=== PATIENT | female | born 1955 | race Caucasian/White ===

== ENCOUNTER 2022-12-27 04:37 | Outpatient (REF) | payer OTHER, MEDICAID, SELFPAY ==
[2022-12-27 11:51] LABS: Anion Gap 11.9; BUN Creatinine Ratio 8.3; C Reactive Protein 6.8 mg/dL (<=1.0); Carbon Dioxide 27.3 mmol/L (21.0-32.0); Chloride 107 mmol/L (98-107); Creatine Kinase 129 U/L (26-192); Estimated GFR (African America >60 (>=60); Estimated GFR (Non-African Ame >60 (>=60); Glucose 137 mg/dL (74-106); Potassium 3.2 mmol/L (3.5-5.1); Sodium 143 mmol/L (136-145)
== END 2022-12-27 04:38 | disposition home or self-care (01) ==
LOC: LAB 04:37
PROVIDERS: PCP Family Medicine; Visit Provider Family Medicine
DX: M00.9 Pyogenic arthritis, unspecified (principal)
CPT/HCPCS: 36415; 80048; 82550; 86140

== ENCOUNTER 2022-12-30 04:18 | Outpatient (REF) | payer OTHER, MEDICAID, SELFPAY ==
[2022-12-30 09:11] LABS: Basophils Percent Auto 0.3 % (0.2-2.0); Eosinophils Absolute Auto 0.2 10^3/uL (0.0-0.7); Eosinophils Percent Auto 3.4 % (0.9-7.0); Hematocrit 25.2 % (36.0-48.0); Hemoglobin 7.4 g/dL (12.0-16.0); Immature Granulocytes Abs Auto 0.05 10^3/uL (0.00-0.03); Immature Granulocytes Pct Auto 0.8 % (0.0-0.5); Lymphocytes Absolute Auto 1.2 10^3/uL (1.2-3.8); Mean Corpuscular HGB Conc 29.4 g/dL (29.9-35.2); Mean Corpuscular Hemoglobin 27.5 pg (26.7-34.0); Mean Corpuscular Volume 93.7 fL (81.0-99.0); Monocytes Absolute Auto 0.6 10^3/uL (0.3-0.8); Monocytes Percent Auto 8.6 % (1.7-12.0); Neutrophils Absolute Auto 4.4 10^3/uL (1.4-6.5); Neutrophils Percent Auto 67.9 % (43.0-75.0); Platelet Count 336 10^3/uL (150-450); Red Blood Count 2.69 10^6/uL (4.20-5.40); Red Cell Distribution Width 16.4 % (11.0-15.0); White Blood Count 6.4 10^3/uL (4.0-11.0)
[2022-12-30 10:03] LABS: Anion Gap 11.9; Carbon Dioxide 24.8 mmol/L (21.0-32.0); Chloride 110 mmol/L (98-107); Potassium 3.7 mmol/L (3.5-5.1); Sodium 143 mmol/L (136-145)
== END 2022-12-30 04:19 | disposition home or self-care (01) ==
LOC: LAB 04:18
PROVIDERS: PCP Family Medicine; Visit Provider Family Medicine
DX: E87.6 Hypokalemia (principal)
CPT/HCPCS: 36415; 80051; 85025

== ENCOUNTER 2023-01-01 01:09 | Outpatient (REF) | payer OTHER, MEDICAID, SELFPAY ==
[2023-01-01 08:29] LABS: Hematocrit 26.6 % (36.0-48.0); Hemoglobin 7.7 g/dL (12.0-16.0); Mean Corpuscular HGB Conc 28.9 g/dL (29.9-35.2); Mean Corpuscular Hemoglobin 27.3 pg (26.7-34.0); Mean Corpuscular Volume 94.3 fL (81.0-99.0); Mean Platelet Volume 9.9 fL (9.5-13.5); Platelet Count 287 10^3/uL (150-450); Red Blood Count 2.82 10^6/uL (4.20-5.40); Red Cell Distribution Width 16.7 % (11.0-15.0); White Blood Count 6.2 10^3/uL (4.0-11.0)
[2023-01-01 11:06] LABS: Basophils Abs Manual 0.06 10^3/uL (0.00-0.10); Eosinophils Absolute Manual 0.18 10^3/uL (0.00-0.70); Lymphocytes Absolute Manual 2.04 10^3/uL (1.20-3.80); Monocytes Absolute Manual 0.55 10^3/uL (0.30-0.80); Segmented Neut Absolute Manual 3.34 10^3/uL (1.4-6.5)
[2023-01-01 11:07] LABS: Anisocytosis 1+; Hypochromasia 1+
== END 2023-01-01 01:10 | disposition home or self-care (01) ==
LOC: LAB 01:09
PROVIDERS: PCP Family Medicine; Visit Provider Family Medicine
DX: D64.9 Anemia, unspecified (principal)
CPT/HCPCS: 36415; 85027

== ENCOUNTER 2023-01-03 00:37 | Outpatient (REF) | payer OTHER, MEDICAID, SELFPAY ==
[2023-01-03 10:20] LABS: Basophils Percent Auto 0.5 % (0.2-2.0); Eosinophils Absolute Auto 0.3 10^3/uL (0.0-0.7); Eosinophils Percent Auto 5.2 % (0.9-7.0); Hemoglobin 8.7 g/dL (12.0-16.0); Immature Granulocytes Abs Auto 0.05 10^3/uL (0.00-0.03); Immature Granulocytes Pct Auto 0.8 % (0.0-0.5); Lymphocytes Percent Auto 33.9 % (20.5-60.0); Mean Corpuscular HGB Conc 28.1 g/dL (29.9-35.2); Mean Corpuscular Hemoglobin 27.5 pg (26.7-34.0); Mean Corpuscular Volume 98.1 fL (81.0-99.0); Mean Platelet Volume 10.1 fL (9.5-13.5); Monocytes Absolute Auto 0.7 10^3/uL (0.3-0.8); Monocytes Percent Auto 12.3 % (1.7-12.0); Neutrophils Absolute Auto 2.8 10^3/uL (1.4-6.5); Neutrophils Percent Auto 47.3 % (43.0-75.0); Platelet Count 293 10^3/uL (150-450); Red Cell Distribution Width 17.2 % (11.0-15.0)
[2023-01-03 10:29] LABS: Anion Gap 10.2; C Reactive Protein 3.6 mg/dL (<=1.0); Calcium 8.5 mg/dL (8.5-10.1); Carbon Dioxide 24.3 mmol/L (21.0-32.0); Chloride 109 mmol/L (98-107); Creatine Kinase 53 U/L (26-192); Estimated GFR (African America >60 (>=60); Estimated GFR (Non-African Ame >60 (>=60); Glucose 87 mg/dL (74-106); Potassium 4.5 mmol/L (3.5-5.1); Sodium 139 mmol/L (136-145)
[2023-01-03 11:05] LABS: Red Blood Count 3.16 10^6/uL (4.20-5.40)
== END 2023-01-03 00:38 | disposition home or self-care (01) ==
LOC: LAB 00:37
PROVIDERS: PCP Family Medicine; Visit Provider Family Medicine
DX: E11.22 Type 2 diabetes mellitus with diabetic chronic kidney disease (principal); M00.9 Pyogenic arthritis, unspecified; I13.10 Hypertensive heart and chronic kidney disease without heart failure, with stage 1 through stage 4 chronic kidney disease, or unspecified chronic kidney disease; E66.9 Obesity, unspecified; D64.9 Anemia, unspecified
CPT/HCPCS: 36415; 80048; 82550; 86140

== ENCOUNTER 2023-01-10 06:07 | Outpatient (REF) | payer OTHER, MEDICAID, SELFPAY ==
[2023-01-10 09:20] LABS: Alanine Aminotransferase 8 U/L (14-59); Albumin Globulin Ratio 0.5; Albumin Level 2.2 g/dL (3.4-5.0); Alkaline Phosphatase 91 U/L (46-116); Anion Gap 14.5; Aspartate Amino Transferase 7 U/L (15-37); BUN Creatinine Ratio 14.5; Bilirubin Total 0.3 mg/dL (0.2-1.0); C Reactive Protein 2.7 mg/dL (<=1.0); Calcium 8.9 mg/dL (8.5-10.1); Carbon Dioxide 25.1 mmol/L (21.0-32.0); Chloride 107 mmol/L (98-107); Creatine Kinase 28 U/L (26-192); Estimated GFR (African America >60 (>=60); Estimated GFR (Non-African Ame >60 (>=60); Globulin 4.6 g/dL; Glucose 128 mg/dL (74-106); Potassium 3.6 mmol/L (3.5-5.1); Sodium 143 mmol/L (136-145); Total Protein 6.8 g/dL (6.4-8.2)
== END 2023-01-10 06:08 | disposition home or self-care (01) ==
LOC: LAB 06:07
PROVIDERS: PCP Family Medicine; Visit Provider Family Medicine
DX: E11.22 Type 2 diabetes mellitus with diabetic chronic kidney disease (principal); I13.10 Hypertensive heart and chronic kidney disease without heart failure, with stage 1 through stage 4 chronic kidney disease, or unspecified chronic kidney disease; E66.9 Obesity, unspecified; M00.9 Pyogenic arthritis, unspecified
CPT/HCPCS: 36415; 80053; 82550; 86140

== ENCOUNTER 2023-01-17 01:39 | Outpatient (REF) | payer OTHER, MEDICAID, SELFPAY ==
[2023-01-17 08:42] LABS: Anion Gap 11.9; C Reactive Protein 5.2 mg/dL (<=1.0); Calcium 8.7 mg/dL (8.5-10.1); Carbon Dioxide 23.8 mmol/L (21.0-32.0); Chloride 107 mmol/L (98-107); Creatine Kinase 19 U/L (26-192); Estimated GFR (African America >60 (>=60); Estimated GFR (Non-African Ame >60 (>=60); Glucose 111 mg/dL (74-106); Potassium 3.7 mmol/L (3.5-5.1); Sodium 139 mmol/L (136-145)
== END 2023-01-17 01:40 | disposition home or self-care (01) ==
LOC: LAB 01:39
PROVIDERS: PCP Family Medicine; Visit Provider Family Medicine
DX: M00.9 Pyogenic arthritis, unspecified (principal)
CPT/HCPCS: 36415; 80048; 82550; 86140

== ENCOUNTER 2023-01-24 06:28 | Outpatient (REF) | payer OTHER, MEDICAID, SELFPAY ==
[2023-01-24 10:09] LABS: Anion Gap 15.6; BUN Creatinine Ratio 16.2; C Reactive Protein 4.9 mg/dL (<=1.0); Carbon Dioxide 21.7 mmol/L (21.0-32.0); Chloride 107 mmol/L (98-107); Creatine Kinase 31 U/L (26-192); Estimated GFR (African America >60 (>=60); Estimated GFR (Non-African Ame >60 (>=60); Glucose 164 mg/dL (74-106); Potassium 4.3 mmol/L (3.5-5.1); Sodium 140 mmol/L (136-145)
== END 2023-01-24 06:29 | disposition home or self-care (01) ==
LOC: LAB 06:28
PROVIDERS: PCP Family Medicine; Visit Provider Family Medicine
DX: M00.9 Pyogenic arthritis, unspecified (principal); E11.22 Type 2 diabetes mellitus with diabetic chronic kidney disease; I13.10 Hypertensive heart and chronic kidney disease without heart failure, with stage 1 through stage 4 chronic kidney disease, or unspecified chronic kidney disease; E66.9 Obesity, unspecified
CPT/HCPCS: 36415; 80048; 82550; 86140

== ENCOUNTER 2023-02-07 03:14 | Outpatient (REF) | payer OTHER, MEDICAID, SELFPAY ==
[2023-02-07 08:37] LABS: Anion Gap 11.5; BUN Creatinine Ratio 20.8; C Reactive Protein 1.9 mg/dL (<=1.0); Carbon Dioxide 26.4 mmol/L (21.0-32.0); Chloride 110 mmol/L (98-107); Creatine Kinase 18 U/L (26-192); Estimated GFR (African America >60 (>=60); Estimated GFR (Non-African Ame >60 (>=60); Glucose 90 mg/dL (74-106); Potassium 3.9 mmol/L (3.5-5.1); Sodium 144 mmol/L (136-145)
== END 2023-02-07 03:15 | disposition home or self-care (01) ==
LOC: LAB 03:14
PROVIDERS: PCP Family Medicine; Visit Provider Family Medicine
DX: M00.9 Pyogenic arthritis, unspecified (principal)
CPT/HCPCS: 36415; 80048; 82550; 86140

== ENCOUNTER 2023-02-11 14:30 | Outpatient (REF) | payer OTHER, MEDICAID, SELFPAY ==
[2023-02-12 08:56] LABS: Bilirubin Urine NEGATIVE (NEGATIVE); Blood Urine MODERATE (NEGATIVE); Clarity Urine CLOUDY (CLEAR); Color Urine LT. YELLOW (YELLOW); Glucose Urine UA NEGATIVE (NEGATIVE); Ketones Urine NEGATIVE (NEGATIVE); Leukocyte Esterase Urine LARGE (NEGATIVE); Nitrite Urine NEGATIVE (NEGATIVE); Protein Urine 30 mg/dL (NEG/TRACE); Specific Gravity Urine 1.025 (1.005-1.025); Urine Microscopic Indicated YES; Urobilinogen Urine 0.2 EU/dL (0.2-1.0)
[2023-02-12 09:02] LABS: Bacteria Urine SMALL #/HPF (NONE SEEN); Crystals Seen? None Seen #/HPF (None Seen); Mucus Urine NONE SEEN (NONE SEEN); RBC Urine 0-2 #/HPF (0-2); Squamous Epithelial Cell Urine NONE SEEN #/LPF (NONE/RARE); WBC Urine >100 #/HPF (NONE SEEN)
[2023-02-12 09:03] LABS: Cast Seen? NONE SEEN #/LPF (NONE SEEN)
== END 2023-02-11 14:31 | disposition home or self-care (01) ==
LOC: LAB 14:30
PROVIDERS: PCP Family Medicine; Visit Provider Family Medicine
DX: R30.0 Dysuria (principal)
CPT/HCPCS: 81001

== ENCOUNTER 2023-02-14 09:14 | Outpatient (REF) | payer OTHER, MEDICAID, SELFPAY ==
[2023-02-14 10:24] LABS: Anion Gap 13.2; BUN Creatinine Ratio 14.3; C Reactive Protein 3.6 mg/dL (<=1.0); Calcium 8.6 mg/dL (8.5-10.1); Carbon Dioxide 25.5 mmol/L (21.0-32.0); Chloride 109 mmol/L (98-107); Creatine Kinase 19 U/L (26-192); Estimated GFR (African America >60 (>=60); Estimated GFR (Non-African Ame >60 (>=60); Glucose 126 mg/dL (74-106); Potassium 3.7 mmol/L (3.5-5.1); Sodium 144 mmol/L (136-145)
== END 2023-02-14 09:15 | disposition home or self-care (01) ==
LOC: LAB 09:14
PROVIDERS: PCP Family Medicine; Visit Provider Family Medicine
DX: Z51.81 Encounter for therapeutic drug level monitoring (principal)
CPT/HCPCS: 36415; 80048; 82550; 86140

== ENCOUNTER 2023-02-24 08:30 | Outpatient (OUT) | payer OTHER, MEDICAID, SELFPAY ==
[2023-02-24 10:22] LABS: Anion Gap 12.6; BUN Creatinine Ratio 18.2; Calcium 9.1 mg/dL (8.5-10.1); Chloride 109 mmol/L (98-107); Creatine Kinase 19 U/L (26-192); Estimated GFR (African America >60 (>=60); Estimated GFR (Non-African Ame >60 (>=60); Glucose 108 mg/dL (74-106); Potassium 3.6 mmol/L (3.5-5.1); Sodium 144 mmol/L (136-145)
[2023-02-24 10:24] LABS: C Reactive Protein 2.28 mg/dL (<=0.30)
== END 2023-02-24 08:31 | disposition home or self-care (01) ==
PROVIDERS: PCP Family Medicine; Visit Provider Family Medicine
DX: Z51.81 Encounter for therapeutic drug level monitoring (principal)
CPT/HCPCS: 36415; 80048; 82550; 86140

== ENCOUNTER 2023-03-03 00:59 | Outpatient (REF) | payer OTHER, MEDICAID, SELFPAY ==
[2023-03-03 09:21] LABS: Anion Gap 11.5; BUN Creatinine Ratio 22.4; Carbon Dioxide 27.2 mmol/L (21.0-32.0); Chloride 109 mmol/L (98-107); Creatine Kinase 19 U/L (26-192); Estimated GFR (African America >60 (>=60); Estimated GFR (Non-African Ame >60 (>=60); Glucose 88 mg/dL (74-106); Potassium 3.7 mmol/L (3.5-5.1); Sodium 144 mmol/L (136-145)
[2023-03-03 09:22] LABS: C Reactive Protein 1.02 mg/dL (<=0.30)
== END 2023-03-03 01:00 | disposition home or self-care (01) ==
LOC: LAB 00:59
PROVIDERS: PCP Family Medicine; Visit Provider Family Medicine
DX: Z51.81 Encounter for therapeutic drug level monitoring (principal)
CPT/HCPCS: 36415; 80048; 82550; 86140

== ENCOUNTER 2023-03-10 11:07 | Outpatient (REF) | payer OTHER, MEDICAID, SELFPAY ==
[2023-03-10 12:02] LABS: Anion Gap 12.6; BUN Creatinine Ratio 27.6; Calcium 8.7 mg/dL (8.5-10.1); Carbon Dioxide 25.5 mmol/L (21.0-32.0); Chloride 109 mmol/L (98-107); Creatine Kinase 25 U/L (26-192); Estimated GFR (African America >60 (>=60); Estimated GFR (Non-African Ame >60 (>=60); Glucose 108 mg/dL (74-106); Potassium 4.1 mmol/L (3.5-5.1); Sodium 143 mmol/L (136-145)
[2023-03-10 15:47] LABS: C Reactive Protein 1.93 mg/dL (<=0.50)
== END 2023-03-10 11:08 | disposition home or self-care (01) ==
LOC: LAB 11:07
PROVIDERS: PCP Family Medicine; Visit Provider Family Medicine
DX: Z51.81 Encounter for therapeutic drug level monitoring (principal)
CPT/HCPCS: 36415; 80048; 82550; 86140

== ENCOUNTER 2023-03-12 02:10 | Outpatient (REF) | payer OTHER, MEDICAID, SELFPAY ==
[2023-03-12 11:59] LABS: Alanine Aminotransferase 24 U/L (14-59); Albumin Globulin Ratio 0.7; Albumin Level 2.7 g/dL (3.4-5.0); Alkaline Phosphatase 70 U/L (46-116); Anion Gap 10.4; Aspartate Amino Transferase 20 U/L (15-37); BUN Creatinine Ratio 29.1; Bilirubin Total 0.2 mg/dL (0.2-1.0); Carbon Dioxide 26.6 mmol/L (21.0-32.0); Chloride 107 mmol/L (98-107); Creatine Kinase 21 U/L (26-192); Estimated GFR (African America >60 (>=60); Estimated GFR (Non-African Ame >60 (>=60); Glucose 81 mg/dL (74-106); Sodium 140 mmol/L (136-145); Total Protein 6.7 g/dL (6.4-8.2)
[2023-03-12 12:48] LABS: C Reactive Protein 1.19 mg/dL (<=0.50)
== END 2023-03-12 02:11 | disposition home or self-care (01) ==
LOC: LAB 02:10
PROVIDERS: PCP Family Medicine; Visit Provider Family Medicine
DX: M00.9 Pyogenic arthritis, unspecified (principal)
CPT/HCPCS: 36415; 80053; 82550; 86140

== ENCOUNTER 2023-03-17 01:06 | Outpatient (REF) | payer OTHER, MEDICAID, SELFPAY ==
[2023-03-17 08:20] LABS: Anion Gap 11.5; BUN Creatinine Ratio 29.2; Calcium 8.6 mg/dL (8.5-10.1); Carbon Dioxide 27.7 mmol/L (21.0-32.0); Chloride 107 mmol/L (98-107); Creatine Kinase 23 U/L (26-192); Estimated GFR (African America >60 (>=60); Estimated GFR (Non-African Ame >60 (>=60); Glucose 131 mg/dL (74-106); Potassium 4.2 mmol/L (3.5-5.1); Sodium 142 mmol/L (136-145)
[2023-03-17 08:23] LABS: C Reactive Protein 2.12 mg/dL (<=0.50)
== END 2023-03-17 01:07 | disposition home or self-care (01) ==
LOC: LAB 01:06
PROVIDERS: PCP Family Medicine; Visit Provider Family Medicine
DX: Z51.81 Encounter for therapeutic drug level monitoring (principal); Z79.899 Other long term (current) drug therapy
CPT/HCPCS: 36415; 80048; 82550; 86140

== ENCOUNTER 2023-03-25 03:52 | Outpatient (REF) | payer OTHER, MEDICAID, SELFPAY ==
[2023-03-25 08:19] LABS: Anion Gap 13.1; BUN Creatinine Ratio 21.9; C Reactive Protein 2.69 mg/dL (<=0.50); Carbon Dioxide 24.8 mmol/L (21.0-32.0); Chloride 104 mmol/L (98-107); Creatine Kinase 36 U/L (26-192); Estimated GFR (African America >60 (>=60); Estimated GFR (Non-African Ame 58 (>=60); Glucose 76 mg/dL (74-106); Potassium 3.9 mmol/L (3.5-5.1); Sodium 138 mmol/L (136-145)
== END 2023-03-25 03:53 | disposition home or self-care (01) ==
LOC: LAB 03:52
PROVIDERS: PCP Family Medicine; Visit Provider Family Medicine
DX: Z51.81 Encounter for therapeutic drug level monitoring (principal)
CPT/HCPCS: 36415; 80048; 82550; 86140

== ENCOUNTER 2023-04-14 00:36 | Outpatient (REF) | payer MEDICARE, MEDICAID, SELFPAY ==
--- OUTSIDE RECORDS SUMMARY | 2023-04-14 00:41 | XMS_ITS | CCD ---
Author Name Unknown Address [address] [place] [address] Organization [facility] Care Team Providers Care Associate Dean Of Women Name Role Phone Link, Marcelo Tita Primary Care Physician Efrem Matos Unavailable Unavailable Matthieu Ware Unavailable Unavailable Hayde Morrison Unavailable Unavailable Kady Stephenson Unavailable Unavailable Zidaimelda, Angie Unavailable Unavailable Richuiti, Ellyn I Unavailable Unavailable Holleran, Ellyn Unavailable Unavailable Sienna Fernández Unavailable Unavailable Dr. Chuck Vernon Attending Yanni vailable Unavailable Primary Care Provider Unavailabl e PROVIDER, UNKNOWN Admitting Unavailable PROVIDER, UNKNOWN Attending Unavailable Ashish Chester Unavailable Brady Marinelli Attending Unavailable Raul Arnold Attending Unavailable Joaquim Noe Attending Unavailable Joaquim Noe Referring Unavailable Hasmukh Joaquim Clayton Admitting Unavailable DO Ty Manrique Attending Unavailable Raul Arnold Attending Unavailable Hari Martinez Attending Unavailable Hasmukh, Joaquim A Consulting Unavailable José MENESES Attending Unavailable Brown, Joaquim A Consulting Unavailable Brown, Joaquim A Consulting Unavailable Brown, Joaquim A Consulting Unavailable Brown, Joaquim A Consulting Unavailable Brown, Joaquim A Consulting Unavailable Brown, Joaquim A Consulting Unavailable Brown, Joaquim A Consulting Unavailable Brown, Joaquim A Consulting Unavailable Brown, Joaquim A Consulting Unavailable Brown, Joaquim A Consulting Unavailable London DIAZ Admitting Unavailable London DIAZ Attending Unavailable London DIAZ Referring Unavailable Brown, Joaquim A Consulting Unavailable Soni PADGETT Attending Unavailable Reymundo JORDAN Admitting Unavailable Brown, Joaquim A Consulting Unavailable Brown, Joaquim A Consulting Unavailable Brown, Joaquim A Consulting Unavailable Brown, Joaquim A Consulting Unavailable Brown, Joaquim A Consulting Unavailable Brown, Joaquim A Consulting Unavailable Brown, Joaquim A Consulting Unavailable Brown, Joaquim A Consulting Unavailable Joaquim Noe Consulting Unavailable Joaquim Noe Consulting Unavailable Joaquim Noe Attending Unavailable Joaquim Noe Referring Unavailable Joaquim Noe Admitting Unavailable Cordell Grossman Consulting Unavailable DO Cordell Grossman Consulting UnavailCordell Lyons Consulting Unavailable Blank, Ashish S Consulting Unavailable Blank, Ashish S Consulting Unavailable Blank, Ashish S Consulting Unavailable Blank, Ashish S Consulting Unavailable Blank, Ashish S Consulting Unavailable Blank, Ashish S Consulting Unavailable Blank, Ashish S Consulting Unavailable Blank, Ashish S Consulting Unavailable Blank, Ashish S Consulting Unavailable Blank, Ashish S Consulting Unavailable Raul Arnold Attending Unavailable Earnest Guevara Attending Unavailable Raul Arnold Attending Unavailable London DIAZ Attending Unavailable José MENESES Attending Unavailable DO Emely Mccall Attending Unavaila Vannessa Salcido Unavailable Unavailable Allergies Allergy Classification Reported Allergen(s) Allergy Type Date of Onset Reaction(s) Facility (20 sources) Adhesive bandage; Translations: [Adhesive Bandage] Drug allergy Eruption of skin (disorder) [facility] (20 sources) Amoxicillin; Translations: [amoxicillin] Drug Allergy Anaphylaxis (disorder) [facility] Comment on above: Tolerated ceftriaxon e several times in past (20 sources) bacitracin / neomycin / polymyxin b; Translations: [bacitracin/neomy andrea/polymyxin B topical] Drug Allergy Eruption of skin (disorder) [facility] (20 sources) celecoxib; Translations: [celecoxib] Drug Allergy Eruption of skin (disorder) [facility] (20 sources) Penicillin; Translations: [penicillin] Drug Allergy Anaphylaxis (disorder) [facility] Comment on above: Tolerated ceftriaxon e several times in past (20 sources) Sulfamethoxazole; Translations: [sulfamethoxazole ] Drug Allergy unknown [facility] (20 sources) Triclosan; Translations: [triclosan topical] Drug Allergy Eruption of skin (disorder) [facility] (20 sources) goldbond cream; Translations: [goldbond cream] Drug allergy Eruption of skin (disorder) [facility] (3 sources) Aloe Extract Drug Allergy Unknown [facility] Other (3 sources) Bacitracin / Polymyxin B Drug Allergy Unknown [facility] Other (3 sources) Benzalkonium Drug Allergy Unknown [facility] Other (3 sources) corn starch Drug Allergy Unknown [facility] Other (3 sources) dimethicone Drug Allergy Unknown [facility] Other (3 sources) Kaolin Drug Allergy Unknown [facility] Other (4 sources) meloxicam; Translations: [meloxicam] Drug Allergy Unknown [facility] (3 sources) pramoxine Drug Allergy Unknown [facility] Other (3 sources) Zinc Oxide Drug Allergy Unknown [facility] Other (3 sources) Substance with sulfonamide structure and antibacterial mechanism of action (substance) Drug allergy Unknown [facility] Other (1 source) Acetaminophen / HYDROcodone; Translations: [Vicodin] Drug Allergy [facility] Rep[facility] (1 source) Latex; Translations: [Latex] Propensity to adverse reactions (disorder) [facility] (1 source) Penicillin; Translations: [penicillin] Drug Allergy [facility] Rep[facility] Medications Current Medications Medication Drug Class(es) Dates Sig (Normalized) Sig (Original) acetaminophen 325 mg oral tablet (3 sources) take 1 tablet by mouth every eight hours Acetaminophen 325 MG 1 tablet as needed Orally TID Active acetaminophen 325 mg / HYDROcodone bitartrate 5 mg oral tablet (16 sources) Opioid Agonist Start: 01-28-2022 take 1 tablet by mouth twice daily for pain [place] 325 mg-5 mg oral tablet 1 tab(s), Oral, BID for pain, Refill(s) 0 Start Date: 01/28/22 Status: Ordered acetaminophen 325 mg / oxyCODONE hydrochloride 5 mg oral tablet (10 sources) Opioid Agonist Start: 12-24-2022 Percocet 5 mg-325 mg oral tablet See Instructions, 40 tab(s), Refill(s) 0, 1-2 tab(s) Oral q4hr Start Date: 12/24/22 Status: Ordered Start: 12-05-2022 take 1.5 tablets by mouth every six hours acetaminophen-oxycodone 325 mg-5 mg Tab 1.5 tab(s), Oral, q6hr M19.9 hip fracture, 80 tab(s), Refill(s) 0, [facility] [place], 162, cm, 11/24/22 0:45:00 EDT, Height/Length Dosing, 64.6, kg, 11/24/22 0:45:00 EDT, Weight Dosing Start Date: 12/05/22 Status: Ordered Start: 11-27-2022 Percocet 5 mg- 325 mg oral tablet See Instructions, 28 tab(s), Refill(s) 0, 1- 2 tab(s) Oral q6hr as nneded for Pain x 7 days Start Date: 11/27/22 Status: Ordered Start: 03-13-2022 End: 03-16-2022 Percocet 5 mg-325 mg oral ta blet 1 tab(s), Oral, q6hr for 3 day(s), 12 tab(s), Refill(s) 0, [id number], 165, cm, 03/13/22 16:40:00 EST, Height/Length Dosing, 73.6, kg, 03/13/22 16:40:00 EST, Weight Dosing Start Date: 03/13/22 Stop Date: 03/16/22 Status: Ordered take 1 tablet by mindy th every four hours oxyCODONE-Acetaminophen 10-325 MG 1 tablet as needed Orally every 4 hrs Active ascorbic acid 500 mg oral tablet (9 sources) Vitamin C Start: 11-27-2022 ascorbic acid 500 mg Tab 500 mg = 1 tab(s), Oral, BIDWM, Refills(s) 0 Start Date: 11/27/22 Status: Ordered take 1 tablet by mouth every twe lve hours Ascorbic Acid 500 MG 1 tablet Orally BID Active aspirin 81 mg delayed release oral tablet (6 sources) Platelet Aggregation Inhibitor, Nonsteroidal Anti-inflammatory Drug Start: 11-28-2022 End: 01-23-2023 take 2 tablets by mouth once daily aspirin 81 mg Oral EC Tab 162 mg = 2 tab(s), Oral, Daily, X 30 day(s), # 60 tab(s), Refills(s) 0 Start Date: 12/24/22 Stop Date: 01/23/23 Status: Ordered atorvastatin 40 mg oral tablet (5 sources) HMG-CoA Reductase Inhibitor Start: 02-13-2023 take 1 tablet by mouth once daily atorvastatin 40 mg Tab 40 mg = 1 tab(s), Oral, Daily, Refills(s) 0, High cholesterol Start Date: 02/13/23 Status: Ordered bisacodyl 5 mg delayed release oral tablet (6 sources) Stimulant Laxative Start: 11-27-2022 take 2 tablets by mouth once as needed for constipation bisacodyl 5 mg Oral EC Tab 10 mg = 2 tab(s), Oral, Once, PRN Constipation, Refills(s) 0 Start Date: 11/27/22 Status: Ordered 12 hr buPROPion hydrochloride 150 mg extended release oral tablet (20 sources) Aminoketone Start: 01-29-2022 take 2 tablets by mouth once daily buPROPion 150 mg ER Tab 300 mg = 2 tab(s), Oral, Daily, Anxiety Start Date: 01/29/22 Status: Ordered Start: 05-23-2021 take 1 tablet by mindy th every twenty-four hours buPROPion 150 mg/24 hours ER Tab 300 mg = 2 tab(s), Oral, q24hr, # 30 tab(s), Refills(s) 0 Start Date: 05/23/21 Status: Ordered Start: 05-23-2021 take 1 tablet by mindy th every twenty-four hours buPROPion 150 mg/24 hours ER Tab 150 mg = 1 tab(s), Oral, q24hr, # 30 tab(s), Refills(s) 0 Start Date: 05/23/21 Status: Ordered take 1 tablet by mindy th every twelve hours buPROPion HCl ER (SR) 150 MG 1 tablet Orally BID Active BuPROPion (Eqv-Wellbutrin SR) 150 mg/12 hours oral tablet, extended release (5 sources) Start: 12-03-2022 BuPROPion (Eqv-Wellbutrin SR) 150 mg/12 hours oral tablet, extended release 150 mg = 1 tab(s), Oral, BID, Refills(s) 0 Start Date: 12/03/22 Status: Ordered busPIRone hydrochloride 10 mg oral tablet (7 sources) Start: 05-23-2021 take 1 tablet by mouth three times daily busPIRone 10 mg Tab 10 mg = 1 tab(s), Oral, TID, # 90 tab(s), Refills(s) 0 Start Date: 05/23/21 Status: Ordered carvedilol 12.5 mg oral tablet (20 sources) alpha-Adrenergic Pema, beta-Adrenergic Pema Start: 08-14-2020 take 1 tablet by mouth twice daily carvedilol 12.5 mg Tab 12.5 mg = 1 tab(s), Oral, BID, High blood pressure Start Date: 08/14/20 Status: Ordered celecoxib 100 mg oral capsule (4 sources) Nonsteroidal Anti-inflammatory Drug Start: 12-24-2022 take 1 capsule by mouth twice daily as needed for pain CeleBREX 100 mg Cap 100 mg = 1 cap(s), Oral, BID, PRN for pain, # 60 cap(s), Refills(s) 0 Start Date: 12/24/22 Status: Ordered cephalexin 500 mg oral capsule (5 sources) Cephalosporin Antibacterial Start: 05-25-2021 take 1 capsule by mouth every eight hours Keflex 500 mg Cap 500 mg = 1 cap(s), Oral, q8hr, # 30 cap(s), Refills(s) 0, Pharmacy: [id number], 163, cm, 05/23/21 14:18:00 EST, Height/Length Dosing, 82, kg, 05/23/21 14:18:00 EST, Weight Dosing Start Date: 05/25/21 Status: Ordered ciprofloxacin 500 mg oral tablet (3 sources) Quinolone Antimicrobial Start: 02-13-2023 take 1 tablet by mouth every twelve hours Cipro 500 mg Tab 500 mg = 1 tab(s), Oral, q12hr, Refills(s) 0, Infection or prophylaxis for antibiotics Start Date: 02/13/23 Status: Ordered cyclobenzaprine hydrochloride 10 mg oral tablet (5 sources) Muscle Relaxant Start: 05-23-2021 take 1 tablet by mouth three times daily as needed for muscle spasms cyclobenzaprine 10 mg Tab 10 mg = 1 tab(s), Oral, TID, PRN for spasm, # 30 tab(s), Refills(s) 0 Start Date: 05/23/21 Status: Ordered DAPTOmycin 500 mg injection (6 sources) Lipopeptide Antibacterial Start: 12-24-2022 take 400 mg intravenously every twenty-four hours DAPTOmycin 500 mg IV Inj. 400 mg, IV, q24hr, # 38 EA, Refills(s) 0 Start Date: 12/24/22 Status: Ordered DAPTOmycin 500 M G as directed Intravenous Active diazePAM 5 mg oral tablet (6 sources) Benzodiazepine Start: 12-24-2022 take 1 tablet by mouth every eight hours as needed for muscle spasms Valium 5 mg Tab 5 mg = 1 tab(s), Oral, q8hr, PRN Spasm, # 20 tab(s), Refills(s) 0 Start Date: 12/24/22 Status: Ordered take 1 tablet by mindy th every twenty-four hours diazePAM 5 MG 1 tablet as needed Orally Once a day Active dicyclomine hydrochloride 10 mg oral capsule (1 source) Anticholinergic Start: 03-13-2022 End: 03-20-2022 take 1 capsule by mouth four times daily Bentyl 10 mg Cap 10 mg = 1 cap(s), Oral, QID, X 7 day(s), # 28 cap(s), Refills(s) 0, Pharmacy: [id number], 165, cm, 03/13/22 16:40:00 EST, Height/Length Dosing, 73.6, kg, 03/13/22 16:40:00 EST, Weight Dosing Start Date: 03/13/22 Stop Date: 03/20/22 Status: Ordered docusate sodium 100 mg oral capsule (1 source) Start: 11-27-2022 take 1 capsule by mouth twice daily Colace 100 mg Cap 100 mg = 1 cap(s), Oral, BID, Refills(s) 0 Start Date: 11/27/22 Status: Ordered 0.5 ML dulaglutide 9 MG/ML Auto-Injector [Trulicity] (20 sources) GLP-1 Receptor Agonist Start: 05-23-2021 inject 4.5 mg by subcutaneous injection every week Trulicity Pen 4.5 mg/0.5 mL subcutaneous solution 4.5 mg, SubCutaneous, qWeek, Refills(s) 0, Blood glucose Start Date: 05/23/21 Status: Ordered Start: 05-23-2021 inject 4.5 mg by sub cutaneous injection every week Trulicity Pen 4.5 mg/0.5 mL subcutaneous solution 4.5 mg, SubCutaneous, qWeek, Refills(s) 0 Start Date: 05/23/21 Status: Ordered esomeprazole 20 mg delayed release oral capsule (20 sources) Proton Pump Inhibitor Start: 12-19-2022 take 2 capsules by mouth once daily esomeprazole 20 mg Cap-DR 40 mg = 2 cap(s), Oral, Daily, # 30 cap(s), Refills(s) 0 Start Date: 12/19/22 Status: Ordered Start: 05-23-2021 take 1 capsule by [facility] once daily esomeprazole 20 mg Cap-DR 20 mg = 1 cap(s), Oral, Daily, # 30 cap(s), Refills(s) 0, Control of stomach acid Start Date: 05/23/21 Status: Ordered take 1 capsule by [facility] every twenty-four hours ferrous sulfate 325 mg oral tablet (9 sources) Start: 11-27-2022 take 1 tablet by mouth once daily ferrous sulfate 325 mg Tab 325 mg = 1 tab(s), Oral, Daily, Refills(s) 0 Start Date: 11/27/22 Status: Ordered take 1 tablet by mouth three vadim es weekly Ferrous Sulfate 325 (65 Fe) MG 1 tablet Orally Three times a Week Active gabapentin 800 mg oral tablet (20 sources) Anti-epileptic Agent Start: 01-28-2022 take 800 mg by mouth three times daily gabapentin 800 mg, Oral, TID, Refills(s) 0, Neuropathy Start Date: 01/28/22 Status: Ordered Start: 02-26-2018 take 1 capsule by [facility] three times daily gabapentin 300 mg Cap 300 mg = 1 cap(s), Oral, TID, Refills(s) 0, Neuropathy Start Date: 02/26/18 Status: Ordered heparin (2 sources) Unfractionated Heparin, Anti-coagulant Start: 02-13-2023 heparin flush 1 unit(s), IV Push, q24hr, 1 unit/ml, total 5 ml flush, Refills(s) 0 Start Date: 02/13/23 Status: Ordered hydrOXYzine hydrochloride 25 mg oral tablet (20 sources) Antihistamine Start: 05-23-2021 take 1 tablet by mouth three times daily as needed for anxiety hydrOXYzine hydrochloride 25 mg Tab 25 mg = 1 tab(s), Oral, TID, PRN for anxiety, # 40 tab(s), Refills(s) 0 Start Date: 05/23/21 Status: Ordered take 1 tablet by mouth every twe nty-four hours ibuprofen 800 mg oral tablet (2 sources) Nonsteroidal Anti-inflammatory Drug Start: 01-28-2022 take 800 mg by mouth every six hours as needed for pain ibuprofen 800 mg, Oral, q6hr, PRN Pain/Fever, Refills(s) 0 Start Date: 01/28/22 Status: Ordered insulin aspart, human 100 unt/ml injectable solution (11 sources) Insulin Analog Start: 12-19-2022 NovoLOG 100 units/mL injectable solution Refills(s) 0 Start Date: 12/19/22 Status: Ordered Start: 12-19-2022 NovoLOG FlexPe n 100 units/mL injectable solution Refills(s) 0 Start Date: 12/19/22 Status: Ordered Start: 05-23-2021 NovoLog slidin g scale, SubCutaneous, QIDACHS, Refills(s) 0 Start Date: 05/23/21 Status: Ordered insulin glargine 100 unt/ml injectable solution (20 sources) Insulin Analog Start: 08-14-2020 inject 15 [IU] by subcutaneous injection once daily at bedtime Lantus 100 units/mL Injection-Insulin 15 unit(s), SubCutaneous, Once a day (at bedtime), Refills(s) 0, Blood glucose Start Date: 08/14/20 Status: Ordered Start: 08-14-2020 inject 20 [IU] by mahoney bcutaneous injection once daily Lantus 100 units/mL Injection-Insulin 20 unit(s), SubCutaneous, Daily, Refills(s) 0, Blood glucose Start Date: 08/14/20 Status: Ordered LABS FOR DAPTOMYCIN (3 sources) Start: 12-24-2022 LABS FOR DAPTOMYCIN LABS FOR DAPTOMYCIN, WEEKLY BMP, CRP AND CPK ON 12/30/22, 01/06/23, 01/13/23,01/20/23,01/27/23, 02/03/23, Print Requisition, Supply Start Date: 12/24/22 Status: Ordered levothyroxine sodium 0.112 mg oral tablet (20 sources) l-Thyr oxine Start: 05-23-2021 take 1 tablet by mouth once daily levothyroxine 112 mcg (0.112 mg) Tab 112 mcg = 1 tab(s), Oral, Daily, # 30 tab(s), Refills(s) 0, Thyroid Start Date: 05/23/21 Status: Ordered take 1 tablet by mindy th once daily in the morning Levothyroxine Sodium 112 MCG 1 tablet in the morning on an empty stomach Orally Once a day Active lisinopril 40 mg oral tablet (20 sources) Angiotensin Converting Enzyme Inhibitor Start: 02-02-2022 End: 11-29-2022 lisinopril 20 mg Tab 20 mg = 1 tab(s), Tab, Oral, Start date 11/29/22 9:00:00 EDT, 11/28/22 21:10:00 EDT Start Date: 11/29/22 Stop Date: 11/29/22 Status: Completed Start: 08-14-2020 take 1 tablet by mindy th once daily lisinopril 40 mg Tab 40 mg = 1 tab(s), Oral, Daily, Refills(s) 0 Start Date: 12/03/22 Status: Ordered meclizine hydrochloride 12.5 mg oral tablet (5 sources) Antiemetic Start: 05-23-2021 take 1 tablet by mouth three times daily as needed for dizziness meclizine 12.5 mg Tab 12.5 mg = 1 tab(s), Oral, TID, PRN for dizziness/ n&v, # 30 tab(s), Refills(s) 0 Start Date: 05/23/21 Status: Ordered metoclopramide 10 mg oral tablet (7 sources) Dopamine-2 Receptor Antagonist Start: 04-10-2022 Reglan 10 mg Tab 10 mg = 1 tab(s), Oral, QIDACHS, Refills(s) 0, Control of stomach acid Start Date: 04/10/22 Status: Ordered nystatin [id number] unt/ml topical cream (3 sources) Polyene Antifungal Start: 12-19-2022 nystatin Top 100,000 units/g Crm 15 gram 1 rhonda, Topical, BID, 15 gram, Refill(s) 0 Start Date: 12/19/22 Status: Ordered omeprazole 20 mg delayed release oral capsule (3 sources) Proton Pump Inhibitor Start: 02-13-2023 take 1 capsule by mouth once daily omeprazole 20 mg Cap-DR 20 mg = 1 cap(s), Oral, Daily, Refills(s) 0, Gas Start Date: 02/13/23 Status: Ordered PARoxetine hydrochloride 40 mg oral tablet (20 sources) Serotonin Reuptake Inhibitor Start: 12-19-2022 take 1 tablet by mouth once daily paroxetine 40 mg Tab 40 mg = 1 tab(s), Oral, Daily, # 90 tab(s), Refills(s) 0 Start Date: 12/19/22 Status: Ordered Start: 08-14-2020 take 1 tablet by mindy five times daily Paxil 10 mg Tab 50 mg = 5 tab(s), Oral, Daily, one tablet 5 times a day, Depression Start Date: 08/14/20 Status: Ordered Start: 08-14-2020 take 5 tablets by [facility] once daily Paxil 10 mg Tab 50 mg = 5 tab(s), Oral, Daily, Depression Start Date: 08/14/20 Status: Ordered take 1 tablet by [facility] every twenty-four hours rosuvastatin calcium 20 mg oral tablet (20 sources) HMG-CoA Reductase Inhibitor Start: 05-23-2021 take 1 tablet by mouth once daily rosuvastatin 20 mg Tab 20 mg = 1 tab(s), Oral, Daily, # 30 tab(s), Refills(s) 0, High cholesterol Start Date: 05/23/21 Status: Ordered S.A.S (SALINE, ADMINISTRATION OF DRUG, SALINE) (3 sources) Start: 12-24-2022 S.A.S (SALINE, ADMINISTRATION OF DRUG, SALINE) S.A.S (SALINE, ADMINISTRATION OF DRUG, SALINE), Print Requisition, Supply Start Date: 12/24/22 Status: Ordered S.A.S.H (SALINE, ADMINISTRATION OF DRUG, SALINE, HEPARIN) (3 sources) Start: 12-24-2022 S.A.S.H (SALINE, ADMINISTRATION OF DRUG, SALINE, HEPARIN) S.A.S.H (SALINE, ADMINISTRATION OF DRUG, SALINE, HEPARIN), Print Requisition, Supply Start Date: 12/24/22 Status: Ordered traZODone hydrochloride 100 mg oral tablet (20 sources) Serotonin Reuptake Inhibitor Start: 05-23-2021 take 2 tablets by mouth once daily at bedtime traZODONE 100 mg Tab 200 mg = 2 tab(s), Oral, Once a day (at bedtime), # 90 tab(s), Refills(s) 0, Insomnia Start Date: 05/23/21 Status: Ordered take 1 tablet by mindy th every twenty-four hours traZODone HCl 100 MG 1 tablet at bedtime Orally Once a day Active Zofran ODT 4 mg Tab-Dis (1 source) Start: 11-21-2021 take 1 tablet by mouth every eight hours as needed for nausea Zofran ODT 4 mg Tab-Dis 4 mg = 1 tab(s), Oral, q8hr, PRN Nausea/Vomiting, # 16 tab(s), Refills(s) 0, Pharmacy: [id number], 162.6, cm, 11/21/21 19:39:00 EDT, Height/Length Dosing, 81.8, kg, 11/21/21 19:39:00 EDT, Weight Dosing Start Date: 11/21/21 Status: Ordered Completed/Discontinued Medications Medication Drug Class(es) Dates Sig (Normalized) Sig (Original) Humalog (11 sources) Insulin Analog Start: 12-24-2022 End: 12-24-2022 HumaLOG Sliding Scale 0-10 Unit(s), Injection-Insulin, SubCutaneous, Start date 12/24/22 12:00:00 PM EDT Start Date: 12/24/22 Stop Date: 12/24/22 Status: Completed Start: 12-23-2022 End: 12-22-2022 HumaLOG Sliding Scale 0-10 U nit(s), Injection-Insulin, SubCutaneous, Start date 12/23/22 12:00:00 AM EDT Start Date: 12/23/22 Stop Date: 12/22/22 Status: Completed Start: 12-22-2022 End: 12-22-2022 HumaLOG Sliding Scale 0-10 U nit(s), Injection-Insulin, SubCutaneous, Start date 12/22/22 12:00:00 PM EDT Start Date: 12/22/22 Stop Date: 12/22/22 Status: Completed Start: 11-25-2022 End: 11-25-2022 Insulin Lispro Sliding Scale 0-10 Unit(s), Injection-Insulin, SubCutaneous, Start date 11/25/22 6:00:00 EDT Start Date: 11/25/22 Stop Date: 11/25/22 Status: Completed Start: 11-24-2022 End: 11-24-2022 Insulin Lispro Sliding Scale 0-10 Unit(s), Injection-Insulin, SubCutaneous, Start date 11/24/22 18:00:00 EDT Start Date: 11/24/22 Stop Date: 11/24/22 Status: Completed Start: 11-24-2022 End: 11-24-2022 Insulin Lispro Sliding Scale 0-10 Unit(s), Injection-Insulin, SubCutaneous, Start date 11/24/22 12:00:00 EDT Start Date: 11/24/22 Stop Date: 11/24/22 Status: Completed Start: 02-01-2022 End: 02-01-2022 HumaLOG Sliding Scale 0-10 U nits, Injection-Insulin, SubCutaneous, Start date 02/01/22 21:00:00 EDT Start Date: 02/01/22 Stop Date: 02/01/22 Status: Completed Start: 02-01-2022 End: 02-01-2022 HumaLOG Sliding Scale 0-10 U nits, Injection-Insulin, SubCutaneous, Start date 02/01/22 16:30:00 EDT Start Date: 02/01/22 Stop Date: 02/01/22 Status: Completed Start: 02-01-2022 End: 02-01-2022 HumaLOG Sliding Scale 0-10 U nits, Injection-Insulin, SubCutaneous, Start date 02/01/22 7:30:00 EDT Start Date: 02/01/22 Stop Date: 02/01/22 Status: Completed Start: 01-29-2022 End: 01-29-2022 Insulin Lispro Sliding Scale 0-10 Units, Injection-Insulin, SubCutaneous, Start date 01/29/22 16:30:00 EDT Start Date: 01/29/22 Stop Date: 01/29/22 Status: Completed Insulin Lispro 1 00 UNIT/ML as directed Injection Active magnesium sulfate 225 MG / potassium chloride 188 MG / sodium sulfate 1479 MG Oral Tablet [Sutab] (1 source) Start: 04-10-2022 take 1 tablet by mouth once Sutab oral tablet See Instructions, 1 EA, Refill(s) 0, LEANDRO, Please follow instructions per packaging and physician's handout, [id number], 165, cm, 04/10/22 11:05:00 EST, Height/Length Dosing, 70.4, kg, 04/10/22 11:05:00 EST, Weight Dosing Start Date: 04/10/22 Status: Ordered potassium chloride 20 meq extended release oral tablet (5 sources) Start: 02-13-2023 take 1 tablet by mouth once daily potassium chloride 20 mEq ER Tab 20 mEq = 1 tab(s), Oral, Daily, Refills(s) 0, Prophylaxis Start Date: 02/13/23 Status: Ordered take 2 tablets by mo ut every twenty-four hours Potassium Chloride Elena ER 20 MEQ 2 tablet with food Orally Once a day Active take 2 tablets by mo uth every twenty-four hours Potassium Chloride Elena ER 20 MEQ 2 tablet with food Orally Once a day Active Problems Active Problems Problem Classification Problem Date Documented Da te Episodic/Chronic Abdominal pain (11 sources) Abdominal pain; Translations: [Unspecified abdominal pain] Onset: 2 Episodic Acute and unspecified renal failure (2 sources) Acute renal failure syndrome; Translations: [Acute kidney failure, unspecified] Onset: 2 Episodic Acute posthemorrhagic anemia (2 sources) Acute posthemorrhagic anemia; Translations: [Acute posthemorrhagic anemia] Onset: 3 Episodic Anxiety disorders (20 sources) Anxiety; Translations: [Mixed anxiety and depressive disorder] Onset: 2 04-25-2018 Chronic Bacterial infection; unspecified site (2 sources) Other specified bacterial agents as the cause of diseases classified elsewhere Episodic Coagulation and hemorrhagic disorders (1 source) Thrombocytopenic disorder; Translations: [Thrombocytopenia, unspecified] Onset: 3 Chronic Complication of device; implant or graft (2 sources) Infection and inflammatory reaction due to other internal joint prosthesis, initial encounter; Translations: [Infection and inflammatory reaction due to unspecified internal joint prosthesis, subsequent encounter] Episodic Complications of surgical procedures or medical care (1 source) Complication of procedure; Translations: [Unspecified adverse effect of drug or medicament, initial encounter] Onset: 2 Episodic Deficiency and other anemia (1 source) Anemia due to chronic blood loss; Translations: [Iron deficiency anemia secondary to blood loss (chronic)] Onset: 3 Chronic Deficiency and other anemia (7 sources) Anemia due to blood loss 04-10-2022 Chronic Deficiency and other anemia (20 sources) Anemia 11-26-2017 Episodic Deficiency and other anemia (6 sources) Iron deficiency anemia; Translations: [Iron deficiency anemia, unspecified] Onset: 3 Episodic Diabetes mellitus with complications (20 sources) Diabetic peripheral neuropathy; Translations: [Hypoglycemia due to type 2 diabetes mellitus] Onset: 2 11-19-2019 Chronic Diabetes mellitus without complication (20 sources) Diabetes mellitus; Translations: [Type 2 diabetes mellitus] Onset: 2 01-11-2021 Chronic Comment on above: IDDM Disorders of lipid metabolism (1 source) Hyperlipidemia; Translations: [Hyperlipidemia, unspecified] Onset: 3 Chronic Diverticulosis and diverticulitis (20 sources) Diverticulitis 03-23-2020 Chronic E Codes: Fall (5 sources) Fall; Translations: [Unspecified fall, initial encounter] Onset: 3 Episodic E Codes: Place of occurrence (1 source) Accident while engaged in household activity; Translations: [Unspecified place in unspecified non-institutional (private) residence as the place of occurrence of the external cause] Onset: 3 Episodic Esophageal disorders (20 sources) Gastroesophageal reflux disease; Translations: [Gastroesophageal reflux disease without esophagitis] Onset: 2 07-21-2019 Chronic Essential hypertension (20 sources) Benign essential hypertension; Translations: [Hypertensive disorder] Onset: 2 04-25-2018 Chronic Fluid and electrolyte disorders (2 sources) Dehydration; Translations: [Dehydration] Onset: 2 Episodic Fracture of neck of femur (hip) (7 sources) Closed fracture of neck of femur; Translations: [Fracture of unspecified part of neck of unspecified femur, initial encounter for closed fracture] Onset: 3 Episodic Infective arthritis and osteomyelitis (except that caused by tuberculosis or sexually transmitted disease) (1 source) Bacterial arthritis; Translations: [Pyogenic arthritis, unspecified] Onset: 3 Episodic Mood disorders (20 sources) Depressive disorder 12-22-2018 Chronic Mycoses (20 sources) Candidiasis of skin; Translations: [Candidiasis of the esophagus] Onset: 3 02-09-2019 Episodic Nausea and vomiting (10 sources) Vomiting; Translations: [Vomiting, unspecified] Onset: 2 Episodic Nonmalignant breast conditions (20 sources) Fibrocystic disease of breast 08-14-2020 Chronic Osteoarthritis (20 sources) Arthritis; Translations: [Osteoarthrosis of the carpometacarpal joint of the thumb] Resolved: 3 06-11-2013 Chronic Comment on above: left right Other aftercare (2 sources) 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 Episodic Other and unspecified benign neoplasm (13 sources) History of polyp of colon; Translations: [Personal history of colonic polyps] Onset: 3 Episodic Other circulatory disease (1 source) Low blood pressure; Translations: [Hypotension, unspecified] Onset: 2 Episodic Other connective tissue disease (3 sources) Hip joint prosthesis present; Translations: [Presence of unspecified artificial hip joint] Chronic Other connective tissue disease (2 sources) Presence of unspecified artificial hip joint Chronic Other gastrointestinal disorders (20 sources) Irritable bowel syndrome 03-23-2020 Chronic Other gastrointestinal disorders (1 source) Diarrhea; Translations: [Diarrhea, unspecified] Onset: 2 Episodic Other gastrointestinal disorders (8 sources) Heartburn; Translations: [Heartburn] Onset: 3 Episodic Other gastrointestinal disorders (13 sources) Dysphagia; Translations: [Dysphagia, unspecified] Onset: 3 Episodic Other injuries and conditions due to external causes (2 sources) Injury of head; Translations: [Unspecified injury of head, initial encounter] Onset: 3 Episodic Other nervous system disorders (20 sources) Neuropathy 12-22-2018 Chronic Other nervous system disorders (2 sources) Chronic pain; Translations: [Other chronic pain] Onset: 2 Chronic Other nervous system disorders (1 source) Polyneuropathy; Translations: [Polyneuropathy, unspecified] Onset: 3 Chronic Other non-traumatic joint disorders (1 source) Pain of left hip joint; Translations: [Pain in left hip] Onset: 3 Episodic Other non-traumatic joint disorders (2 sources) Pain of left shoulder joint; Translations: [Pain in left shoulder] Onset: 3 Episodic Other nutritional; endocrine; and metabolic disorders (20 sources) Obesity; Translations: [Obesity, unspecified] Onset: 2 04-25-2018 Chronic Other nutritional; endocrine; and metabolic disorders (1 source) Abnormal weight loss; Translations: [Abnormal weight loss] Onset: 3 Episodic Other nutritional; endocrine; and metabolic disorders (8 sources) Loss of appetite; Translations: [Anorexia] Onset: 3 Episodic Other nutritional; endocrine; and metabolic disorders (7 sources) Weight loss 04-04-2022 Episodic Other screening for suspected conditions (not mental disorders or infectious disease) (20 sources) Full blood count abnormal 08-14-2020 Episodic Other skin disorders (20 sources) Mass of neck 12-29-2018 Episodic Residual codes; unclassified (20 sources) Chronic pain 07-21-2019 Episodic Residual codes; unclassified (2 sources) Procedure carried out on subject; Translations: [Encounter for prophylactic measures, unspecified] Onset: 2 Episodic Residual codes; unclassified (1 source) Patient encounter status; Translations: [Other specified health status] Onset: 2 Episodic Residual codes; unclassified (1 source) Refused procedure - parent's wish; Translations: [Procedure and treatment not carried out because of patient's decision for other reasons] Onset: 3 Episodic Residual codes; unclassified (1 source) Left against medical advice; Translations: [Procedure and treatment not carried out due to patient leaving prior to being seen by health care provider] Onset: 3 Episodic Spondylosis; intervertebral disc disorders; other back problems (20 sources) Backache; Translations: [Low back pain] 04-25-2018 Episodic Sprains and strains (2 sources) Thoracic back sprain; Translations: [Sprain of unspecified parts of thorax, initial encounter] Onset: 3 Episodic Substance-related disorders (20 sources) Smoker; Translations: [Nicotine dependence] Onset: 2 06-14-2021 Chronic Comment on above: Added secondary to d ocumentation in Social History. Superficial injury; contusion (4 sources) Contusion of hip; Translations: [Contusion of unspecified hip, initial encounter] Onset: 3 Episodic Thyroid disorders (20 sources) Hypothyroidism; Translations: [Hypothyroidism, unspecified] Onset: 3 12-22-2018 Chronic Urinary tract infections (6 sources) Urinary tract infectious disease; Translations: [Urinary tract infection, site not specified] Onset: 3 Episodic Past or Other Problems Problem Classification Problem Date Documented Da te Episodic/Chronic Calculus of urinary tract (20 sources) Kidney stone Resolved: 10-30-2010 10-31-2017 Episodic Pathological fracture (1 source) Age-related osteoporosis with current pathological fracture, right femur, initial encounter for fracture; Translations: [M80.051A] Onset: 11-24-2022 Episodic Residual codes; unclassified (20 sources) Insomnia Resolved: 05-20-2012 10-31-2017 Episodic Results Test Name Value Interpretation Reference Range Facility Prescriptions/Work Noteson 1 05-14-2022 Prescriptions/Work Notes [id number]#1.00TIFF Normal [facility] CHEMISTRYOrdered By: SYSTEM SYSTEM on 02-13-2023 Anion gap [Moles/Vol] 10 mmol/L Normal 6 - 16 mEq/L F C Remisol Chloride [Moles/Vol] 112 mmol/L High 101 - 1 11 mmol/L [facility] Remisol CO2 [Moles/Vol] 21 mmol/L Normal 21 - 31 mmol/L [facility] Remisol Creatinine [Mass/Vol] 0.7 mg/dL Normal 0.5 - 1.3 mg/dL [facility] Remisol GFR/1.73 sq M.predicted among non-blacks MDRD (S/P/Bld) [Vol rate/Area] 94 mL/min/1.73 m2 Normal >=59mL/min/1.7 3 m2 [facility] Chem S Comment on above: Interpretive Data: C hronic kidney disease could be indicated at eGFR's of less than 60 mL/min/1.73m2. Kidney failure is indicated at less than 15 mL/min/1.73m2. Glucose post fast [Mass/Vol] 147 mg/dL High 55 - 99 mg/dL [facility] Remisol Potassium [Moles/Vol] 3.5 mmol/L Normal 3.5 - 5.3 mmol/L [facility] Remisol Sodium [Moles/Vol] 139 mmol/L Normal 135 - 145 mmol/L [facility] Remisol Urea nitrogen [Mass/Vol] 14 mg/dL Normal 5 - 21 mg/dL [facility] Remisol CHEMISTRYOrdered By: Lab ROP User on 02-13-2023 Glucose [Mass/Vol] 149 mg/dL High 55 - 99 mg/dL [facility] C POC Subsection POC Username NELLY ROJAS Invalid Interpretation Code [facility] POC Subsection Sodium [Moles/Vol] [id number] mmol/L Invalid Interpretation Code [facility] POC Subsection Sodium [Moles/Vol] 434285034 mmol/L Invalid Interpretation Code [facility] POC Subsection HEMATOLOGYOrdered By: Gail Felix on 02-13-2023 Erythrocyte distribution width (RBC) [Ratio] 17.0 % High 10.9 - 14.2 % [facility] HemeAutoSS Hematocrit (Bld) [Volume fraction] 30.8 % Low 34.0 - 46.0 % [facility]eAuto[facility] Hemoglobin (Bld) [Mass/Vol] 9.9 g/dL Low 12.0 - 16.0 gm/dL [facility] MCH (RBC) [Entitic mass] 28.3 pg Normal 27.0 - 34.0 pg [facility] MCHC (RBC) [Mass/Vol] 32.2 g/dL Normal 31.4 - 36.0 gm/dL [facility] MCV (RBC) [Entitic vol] 87.8 fL Normal 80.0 - 100.0 fL [facility] Platelet mean volume (Bld) [Entitic vol] 8.6 fL Normal 6.4 - 10.8 fL [facility] Platelets (Bld) [#/Vol] 200.0 E9/L Normal 150. 0 - 500.0 E9/L [facility] RBC (Bld) [#/Vol] 3.5 E12/L Low 4.3 - 5.9 E12/L [facility] WBC corrected for nucl RBC Auto (Bld) [#/Vol] 8.3 E9/L Normal 4.0 - 11.0 E9/L [facility] No Panel InformationOrdered By: Pita Butterfield on 02-13-2023 GS Occasional epithelial cells Occasional White Blood Cells No organisms seen. [facility] Blood Transfusion Recordon 1 04-07-2022 Blood Transfusion Record [id number]#1.00TIFF [facility] IntraOperative Documentson 1 IntraOperative Documents [id number]#1.00TIFF [facility] IntraOperative Documentson 1 IntraOperative Documents [id number]#1.00CD:127 [facility] C Blood Charcoalon 3 Blood Culture Charcoal Normal [facility] Comment on above: Performed By: #### 1 [id number] ####[facility] [address] [place] [address] Consent for PICC lineon 11-30 Consent for PICC line [id number]#1.00CD:127 [facility] Insurance Correspondence Off iceon 12-25-2022 Insurance Correspondence Office [id number]#1.00CD:127 [facility] Recordson 12-25 [facility] Records [id number]#1.00CD:127 [facility] Transfer Documentson 023 Transfer Documents [id number]#1.00CD:127 [facility] CHEMISTRYOrdered By: Lab ROP User on 12-24-2022 Glucose [Mass/Vol] 102 mg/dL High 55 - 99 mg/dL [facility] C POC Subsection Comment on above: Result Comment: Fausto rubi RN/ POC Username IRINA JANE Invalid Interpretation Code [facility] POC Subsection Sodium [Moles/Vol] [id number] mmol/L Invalid Interpretation Code [facility] POC Subsection Sodium [Moles/Vol] 356664045 mmol/L Invalid Interpretation Code [facility] POC Subsection Glucose [Mass/Vol] 194 mg/dL High 55 - 99 mg/dL [facility] C POC Subsection Comment on above: Result Comment: Fausto CHAUDHARY POC Username IRINA JANE Invalid Interpretation Code [facility] POC Subsection Sodium [Moles/Vol] 381401900812 mmol/L Invalid Interpretation Code [facility] POC Subsection Sodium [Moles/Vol] 468185427 mmol/L Invalid Interpretation Code [facility] POC Subsection Glucose [Mass/Vol] 130 mg/dL High 55 - 99 mg/dL [facility] C POC Subsection Comment on above: Result Comment: Fausto CHAUDHARY POC Username ANTOLIN SHEPPARD Invalid Interpretation Code [facility] POC Subsection Sodium [Moles/Vol] 924006041021 mmol/L Invalid Interpretation Code [facility] POC Subsection Sodium [Moles/Vol] 487272077 mmol/L Invalid Interpretation Code [facility] POC Subsection Capillary Glucose POCon 11-30 Glucose [Mass/Vol] 102 mg/dL High 55-99 [facility] Comment on above: Result Comment: Fausto CHAUDHARY Performed By: #### 2 [id number] ####[facility] [address] [place] [address] Glucose [Mass/Vol] 194 mg/dL High 55-99 [facility] Comment on above: Result Comment: Fausto CHAUDHARY Performed By: #### 2 [id number] ####[facility] [address] [place] [address] Glucose [Mass/Vol] 130 mg/dL High 55-99 [facility] Comment on above: Result Comment: Fausto CHAUDHARY Performed By: #### 2 [id number] ####[facility] [address] [place] [address] Glucose [Mass/Vol] 189 mg/dL High 55-99 [facility] Comment on above: Result Comment: Fausto CHAUDHARY Performed By: #### 2 [id number] ####[facility] [address] [place] [address] Discharge Note-Nursingon Discharge Note-Nursing Normal Fi [facility] Inpatient Clinical Summaryon 12-24-2022 Inpatient Clinical Summary Normal [facility] Inpatient Patient Summaryon 12-24-2022 Inpatient Patient Summary Normal [facility] Insurance Correspondence Off iceon 12-24-2022 Insurance Correspondence Office [id number]#[id number]:127 Normal [facility] Interdisciplinary Note - Hardeep e Manageron 12-24-2022 Interdisciplinary Note - Systems Software Manager Normal [facility] Comment on above: Result Comment: Elec tronically Signed By: Radha Prabhakar\.br\Date and Time Signed: 12/24/22 15:54 EDT Progress Note-Physicianon Progress Note-Physician Normal F [facility] Comment on above: Result Comment: Elec tronically Signed By: FALLON BANKS, Soni\.br\Date and Time Signed: 12/24/22 15:29 EDT Auto Diffon 12-23-2022 Basophils/100 WBC (Bld) 0.5 % Normal 0.0-2.0 F [facility] Comment on above: Order Comment: Order Added by Discern Expert. Performed By: #### 2 [id number], [id number], 8127968, 9921374, 1239644, 4187491 ####[facility] [address] [place] [address] Basophils/Leukocytes Auto (Bld) [Pure # fraction] 0.0 E9/L Normal 0.0-0.2 [facility] Comment on above: Order Comment: Order Added by Discern Expert. Performed By: #### 2 139289, 57105639, 3228877, 9421511, 7051943, 5900439 ####[facility] [address] [place] [address] Eosinophils/100 WBC (Bld) 5.0 % Normal 0.0-8.0 [facility] Comment on above: Order Comment: Order Added by Discern Expert. Performed By: #### 2 754544, 30719943, 1204422, 3192531, 1546418, 3407037 ####[facility] [address] [place] [address] Eosinophils/Leukocytes Auto (Bld) [Pure # fraction] 0.3 E9/L Normal 0.0-0.5 [facility] Comment on above: Order Comment: Order Added by Discern Expert. Performed By: #### 2 052625, 79627216, 1762574, 1362451, 7039450, 4778951 ####[facility] [address] [place] [address] Lymphocytes/100 WBC (Bld) 23.3 % Normal 14.0-50.0 [facility] Comment on above: Order Comment: Order Added by Discern Expert. Performed By: #### 2 520510, 35545759, 0372505, 0605696, 8491677, 6952176 ####[facility] [address] [place] [address] Lymphocytes/Leukocytes Auto (Bld) [Pure # fraction] 1.5 E9/L Normal 1.0-4.0 [facility] Comment on above: Order Comment: Order Added by Katherine Expert. Performed By: #### 2 510785, 06663707, 5850602, 1906124, 8235451, 6692844 ####[facility] [address] [place] [address] Monocytes/100 WBC (Bld) 14.2 % High 4.0-14.0 [facility] Comment on above: Order Comment: Order Added by Katherine Expert. Performed By: #### 2 513429, 43014487, 9374632, 5961231, 6754358, 2388149 ####[facility] [address] [place] [address] Monocytes/Leukocytes Auto (Bld) [Pure # fraction] 0.9 E9/L Normal 0.2-1.0 [facility] Comment on above: Order Comment: Order Added by Katherine Expert. Performed By: #### 2 287286, 40966306, 1494024, 0003932, 2667317, 0124805 ####[facility] [address] [place] [address] Neutrophils/100 WBC (Bld) 57.0 % Normal 36.0-75.0 [facility] Comment on above: Order Comment: Order Added by Discern Expert. Performed By: #### 2 888122, 64601251, 8433839, 8693646, 8473182, 1520836 ####[facility] [address] [place] [address] Neutrophils/Leukocytes Auto (Bld) [Pure # fraction] 3.6 E9/L Normal 2.0-7.5 [facility] Comment on above: Order Comment: Order Added by Discern Expert. Performed By: #### 2 674439, 18698682, 6245839, 6384271, 9262648, 8377392 ####[place] [place] [address] BUNon 12-23-2022 Urea nitrogen [Mass/Vol] 15 mg/dL Normal 5-21 [facility] Comment on above: Performed By: #### 2 700120, 21284750, 9577902, 5026079, 5927660, 8792982 ####[address] [address] [place] 12-23-2022 Wound Culture Normal [facility] Comment on above: Performed By: #### 2 168657 ####[place] [id number] Wound Culture Normal [facility] Comment on above: Performed By: #### 2 965911 ####[address] [address] CBC w/ Auto Diffon Erythrocyte distribution width (RBC) [Ratio] 17.4 % High 10.9-14.2 [facility] Comment on above: Performed By: #### 2 222601, 15926889, 0108249, 6608076, 9548348, 6494294 ####[address] [place] [address] Hematocrit (Bld) [Volume fraction] 21.5 % Low 34.0-46.0 [facility] Comment on above: Performed By: #### 2 560256, 83486356, 0762101, 4222497, 4350828, 2068728 ####[facility] [address] [place] [address] Hemoglobin (Bld) [Mass/Vol] 7.1 g/dL Low 12.0-16.0 [facility] Comment on above: Performed By: #### 2 269853, 43125641, 7785229, 1724902, 4093319, 3336814 ####[address] [address] MCH (RBC) [Entitic mass] 28.2 pg Normal 27.0-34.0 [facility] Comment on above: Performed By: #### 2 189427, 82859469, 0011205, 0293320, 7809784, 5006858 ####[address] [address] MCHC (RBC) [Mass/Vol] 32.9 g/dL Normal 31.4-36.0 [facility] Comment on above: Performed By: #### 2 423410, 59744528, 9370493, 5444200, 0297474, 3565419 ####[address] [address] MCV (RBC) [Entitic vol] 85.7 fL Normal 80.0-100.0 F [facility] Comment on above: Performed By: #### 2 734592, 39390994, 8512999, 9200337, 1841624, 5254194 ####[address] [place] [address] Platelet mean volume (Bld) [Entitic vol] 7.7 fL Normal 6.4-10.8 [facility] Comment on above: Performed By: #### 2 063113, 72298655, 5442878, 9979098, 7778748, 9954497 ####[address] [place] [address] Platelets (Bld) [#/Vol] 316.0 E9/L Normal 150.0-500.0 [facility] Comment on above: Performed By: #### 2 668619, 77170523, 6352078, 2254421, 6103287, 1934227 ####[facility] [address] [place] [address] RBC (Bld) [#/Vol] 2.5 E12/L Low 4.3-5.9 [facility] Comment on above: Performed By: #### 2 367552, 24841107, 6028052, 3513409, 0279606, 8718330 ####[facility] [address] [place] [address] WBC corrected for nucl RBC Auto (Bld) [#/Vol] 6.3 E9/L Normal 4.0-11.0 [facility] Comment on above: Performed By: #### 2 646557, 59810759, 3392440, 4266538, 2257211, 2032508 ####[facility] [address] [place] [address] CHEMISTRYOrdered By: SYSTEM SYSTEM on 12-23-2022 Anion gap [Moles/Vol] 1 mmol/L Low 6 - 16 mEq/L F [facility] Remisol Chloride [Moles/Vol] 119 mmol/L High 101 - 1 11 mmol/L [facility] Remisol CO2 [Moles/Vol] 25 mmol/L Normal 21 - 31 mmol/L [facility] Remisol Creatinine [Mass/Vol] 0.7 mg/dL Normal 0.5 - 1.3 mg/dL [facility] Remisol GFR/1.73 sq M.predicted among non-blacks MDRD (S/P/Bld) [Vol rate/Area] 94 mL/min/1.73 m2 Normal >=59mL/min/1.7 3 m2 [facility] Chem S Comment on above: Interpretive Data: C hronic kidney disease could be indicated at eGFR's of less than 60 mL/min/1.73m2. Kidney failure is indicated at less than 15 mL/min/1.73m2. Potassium [Moles/Vol] 4.0 mmol/L Normal 3.5 - 5.3 mmol/L [facility] Remisol Sodium [Moles/Vol] 141 mmol/L Normal 135 - 145 mmol/L [facility] Remisol Urea nitrogen [Mass/Vol] 15 mg/dL Normal 5 - 21 mg/dL [facility] Remisol Capillary Glucose POCon 11-30 Glucose [Mass/Vol] 118 mg/dL High 55-99 [facility] Comment on above: Result Comment: Fausto CHAUDHARY Performed By: #### 2 [id number] ####[facility] [address] [place] [address] Glucose [Mass/Vol] 105 mg/dL High 55-99 [facility] Comment on above: Result Comment: Fausto CHAUDHARY Performed By: #### 2 [id number] ####[facility] [address] [place] [address] Glucose [Mass/Vol] 104 mg/dL High 55-99 [facility] Comment on above: Result Comment: Fausto CHAUDHARY Performed By: #### 2 [id number] ####[facility] [address] [place] [address] Glucose [Mass/Vol] 123 mg/dL High 55-99 [facility] Comment on above: Result Comment: Lucille ronak Meter Performed By: #### 2 [id number] ####[facility] [address] [place] [address] Consent for Anesthesiaon Consent for Anesthesia ..121.88. [id number]#1.00CD:127 Normal [facility] Consent for Blood Transfusio non 12-23-2022 Consent for Blood Transfusion ..121. [id number]#1.00CD:127 Normal [facility] Consent for Procedure/Surger yon 12-23-2022 Consent for Procedure/Surgery 170..121. [id number]#1.00CD:127 Normal [facility] Consent for Treatmenton 11-30 Consent for Treatment 170..121. [id number]#1.00CD:127 Normal [facility] Creatinineon 12-23-2022 Creatinine [Mass/Vol] 0.7 mg/dL Normal 0.5-1.3 [facility] Comment on above: Performed By: #### 2 153104, 90034850, 9461882, 7154893, 2076574, 0967857 ####[facility] [address] [place] [address] HEMATOLOGYOrdered By: SYSTEM SYSTEM on 12-23-2022 Basophils/100 WBC (Bld) 0.5 % Normal 0.0 - 2.0 % [facility] Basophils/Leukocytes Auto (Bld) [Pure # fraction] 0.0 E9/L Normal 0.0 - 0.2 E9/L [facility] Eosinophils/100 WBC (Bld) 5.0 % Normal 0.0 - 8.0 % [facility] Eosinophils/Leukocytes Auto (Bld) [Pure # fraction] 0.3 E9/L Normal 0.0 - 0.5 E9/L [facility] Lymphocytes/100 WBC (Bld) 23.3 % Normal 14.0 - 50.0 % [facility] Lymphocytes/Leukocytes Auto (Bld) [Pure # fraction] 1.5 E9/L Normal 1.0 - 4.0 E9/L [facility] Monocytes/100 WBC (Bld) 14.2 % High 4.0 - 14.0 % [facility] Monocytes/Leukocytes Auto (Bld) [Pure # fraction] 0.9 E9/L Normal 0.2 - 1.0 E9/L [facility] Neutrophils/100 WBC (Bld) 57.0 % Normal 36.0 - 75.0 % [facility] Neutrophils/Leukocytes Auto (Bld) [Pure # fraction] 3.6 E9/L Normal 2.0 - 7.5 E9/L [facility] HEMATOLOGYOrdered By: David Gasca on 12-23-2022 Erythrocyte distribution width (RBC) [Ratio] 17.4 % High 10.9 - 14.2 % [facility] Hematocrit (Bld) [Volume fraction] 21.5 % Low 34.0 - 46.0 % [facility] Hemoglobin (Bld) [Mass/Vol] 7.1 g/dL Low 12.0 - 16.0 gm/dL [facility] Heme[facility] MCH (RBC) [Entitic mass] 28.2 pg Normal 27.0 - 34.0 pg [facility] MCHC (RBC) [Mass/Vol] 32.9 g/dL Normal 31.4 - 36.0 gm/dL [facility] MCV (RBC) [Entitic vol] 85.7 fL Normal 80.0 - 100.0 fL [facility] Platelet mean volume (Bld) [Entitic vol] 7.7 fL Normal 6.4 - 10.8 fL [facility] Platelets (Bld) [#/Vol] 316.0 E9/L Normal 150. 0 - 500.0 E9/L [facility] RBC (Bld) [#/Vol] 2.5 E12/L Low 4.3 - 5.9 E12/L [facility] WBC corrected for nucl RBC Auto (Bld) [#/Vol] 6.3 E9/L Normal 4.0 - 11.0 E9/L [facility] Interdisciplinary Note - Hardeep e Manageron 12-23-2022 Interdisciplinary Note - Systems Software Manager Normal [facility] Comment on above: Result Comment: Elec tronically Signed By: Kirstin Meyer.deng\Date and Time Signed: 12/23/22 14:46 EDT IntraOperative Documentson 0 12-23-2022 IntraOperative Documents [id number]:[id number] Normal [facility] IntraOperative Documents [id number]:[id number] Normal [facility] Lyteson 12-23-2022 Anion gap [Moles/Vol] 1 mmol/L Low 6-16 [facility] Comment on above: Performed By: #### 2 942412, 09846515, 2833361, 1611375, 9260171, 5043760 ####[facility] [address] [place] [address] Chloride [Moles/Vol] 119 mmol/L High 101-111 [facility] Comment on above: Performed By: #### 2 572886, 83959603, 8099494, 2687280, 8231050, 2035104 ####[facility] [address] [place] [address] CO2 [Moles/Vol] 25 mmol/L Normal 21-31 [facility] Comment on above: Performed By: #### 2 097233, 85114226, 0018816, 1496415, 5138251, 2924781 ####[facility] [address] [place] [address] Potassium [Moles/Vol] 4.0 mmol/L Normal 3.5-5.3 [facility] Comment on above: Performed By: #### 2 120606, 27613017, 0283339, 0048811, 7131857, 8228388 ####[facility] [address] [place] [address] Sodium [Moles/Vol] 141 mmol/L Normal 135-145 [facility] Comment on above: Performed By: #### 2 300612, 04284274, 2606720, 0372826, 8378796, 4968654 ####[facility] [address] [place] [address] Main OR Intraoperative Recor don 12-23-2022 Main OR Intraoperative Record Normal [facility] Progress Note-Physicianon Progress Note-Physician Normal [facility] Comment on above: Result Comment: Elec tronically Signed By: Joaquim Noe DO\.br\Date and Time Signed: 12/23/22 19:04 EDT Progress Note-Physician Normal [facility] Comment on above: Result Comment: Elec tronically Signed By: FALLON BANKS, Soni\.br\Date and Time Signed: 12/23/22 10:01 EDT XR Chest Single Viewon 12-23 XR Chest Single View Normal [facility] eGFRon 12-23-2022 GFR/1.73 sq M.predicted among non-blacks MDRD (S/P/Bld) [Vol rate/Area] 94 mL/min/1.73 m2 Normal >=59 [facility] Comment on above: Order Comment: Order added by Discern Expert. Result Comment: Diabetes Territory Manager marquez kidney disease could be indicated at eGFR's of less than 60 mL/min/1.73m2. Kidney failure is indicated at less than 15 mL/min/1.73m2. Performed By: #### 2 123431, 19355450, 6317371, 3591508, 0222982, 5942020 ####[facility] [address] [place] [address] Auto Diffon 12-22-2022 Basophils/100 WBC (Bld) 0.5 % Normal 0.0-2.0 [facility] Comment on above: Order Comment: Order Added by Discern Expert. Performed By: #### 2 067729, 0632196, 93461947, 5999254, 1016338, 2362595 ####[facility] [address] [place] [address] Basophils/Leukocytes Auto (Bld) [Pure # fraction] 0.0 E9/L Normal 0.0-0.2 [facility] Comment on above: Order Comment: Order Added by Discern Expert. Performed By: #### 2 167107, 3428049, 74209121, 2231676, 6641914, 9749505 ####[facility] [address] [place] [address] Eosinophils/100 WBC (Bld) 1.1 % Normal 0.0-8.0 [facility] Comment on above: Order Comment: Order Added by Discern Expert. Performed By: #### 2 885163, 7007227, 61931870, 7804326, 9230667, 3990277 ####[facility] [address] [place] [address] Eosinophils/Leukocytes Auto (Bld) [Pure # fraction] 0.1 E9/L Normal 0.0-0.5 [facility] Comment on above: Order Comment: Order Added by Discern Expert. Performed By: #### 2 517166, 8429893, 02394068, 2602948, 8425641, 9952392 ####[facility] [address] [place] [address] Lymphocytes/100 WBC (Bld) 20.4 % Normal 14.0-50.0 [facility] Comment on above: Order Comment: Order Added by Discern Expert. Performed By: #### 2 126426, 9253331, 58894205, 9201043, 8685814, 2822206 ####[place] [place] [address] Lymphocytes/Leukocytes Auto (Bld) [Pure # fraction] 1.5 E9/L Normal 1.0-4.0 [facility] Comment on above: Order Comment: Order Added by Discern Expert. Performed By: #### 2 383828, 3460758, 99512667, 1124505, 4929171, 6577960 ####[address] [address] Monocytes/100 WBC (Bld) 11.4 % Normal 4.0-14.0 [facility] Comment on above: Order Comment: Order Added by Discern Expert. Performed By: #### 2 945951, 2903436, 24633143, 2403450, 4405744, 0063302 ####[address] [address] Monocytes/Leukocytes Auto (Bld) [Pure # fraction] 0.9 E9/L Normal 0.2-1.0 [facility] Comment on above: Order Comment: Order Added by Discern Expert. Performed By: #### 2 436260, 8605982, 14617865, 8607891, 1162347, 9456003 ####[address] [place] [address] Neutrophils/100 WBC (Bld) 66.6 % Normal 36.0-75.0 [facility] Comment on above: Order Comment: Order Added by Discern Expert. Performed By: #### 2 726358, 8650246, 46435632, 9904565, 0096218, 5696454 ####[address] [place] [address] Neutrophils/Leukocytes Auto (Bld) [Pure # fraction] 5.0 E9/L Normal 2.0-7.5 [facility] Comment on above: Order Comment: Order Added by Discern Expert. Performed By: #### 2 450735, 4363665, 35732269, 9690962, 2917398, 0904920 ####[facility] [address] [place] [address] BUNon 12-22-2022 Urea nitrogen [Mass/Vol] 21 mg/dL Normal 5-21 [facility] Comment on above: Performed By: #### 2 147793, 9699460, 96418070, 6373607, 3607684, 5871943 ####[facility] [address] [place] [address] CBC w/ Auto Diffon Erythrocyte distribution width (RBC) [Ratio] 17.5 % High 10.9-14.2 [facility] Comment on above: Performed By: #### 2 481475, 1633718, 08707693, 0591737, 7700506, 6903505 ####[facility] [address] [place] [address] Hematocrit (Bld) [Volume fraction] 21.8 % Low 34.0-46.0 [facility] Comment on above: Performed By: #### 2 668270, 0791605, 91117387, 1509977, 0094348, 5590546 ####[facility] [address] [place] [address] Hemoglobin (Bld) [Mass/Vol] 7.2 g/dL Low 12.0-16.0 [facility] Comment on above: Performed By: #### 2 760899, 6927737, 76620078, 8273579, 6920538, 7990415 ####[facility] [address] [place] [address] MCH (RBC) [Entitic mass] 28.2 pg Normal 27.0-34.0 [facility] Comment on above: Performed By: #### 2 147987, 2135187, 39048429, 2640703, 3455671, 3360073 ####[address] [place] [place] [address]257 MCHC (RBC) [Mass/Vol] 32.9 g/dL Normal 31.4-36.0 [facility] Comment on above: Performed By: #### 2 624253, 2434637, 97846320, 4094365, 0545128, 8581001 ####[address] [address] MCV (RBC) [Entitic vol] 85.7 fL Normal 80.0-100.0 F [facility] Comment on above: Performed By: #### 2 001409, 8409944, 48760764, 0771924, 3213249, 0997805 ####[address] [address] Platelet mean volume (Bld) [Entitic vol] 7.8 fL Normal 6.4-10.8 [facility] Comment on above: Performed By: #### 2 113168, 9715743, 95585595, 1213024, 0620804, 8746388 ####[address] [address] Platelets (Bld) [#/Vol] 337.0 E9/L Normal 150.0-500.0 [facility] Comment on above: Performed By: #### 2 798456, 0123232, 06583936, 1502717, 5891955, 4120357 ####[address] [address] RBC (Bld) [#/Vol] 2.5 E12/L Low 4.3-5.9 [facility] Comment on above: Performed By: #### 2 136270, 1789994, 56974049, 3229815, 1267215, 8744056 ####[address] [address] WBC corrected for nucl RBC Auto (Bld) [#/Vol] 7.4 E9/L Normal 4.0-11.0 [facility] Comment on above: Performed By: #### 2 975112, 2491110, 64246469, 3732569, 4777280, 8103773 ####[facility] [address] [place] [address] CHEMISTRYOrdered By: SYSTEM SYSTEM on 12-22-2022 Anion gap [Moles/Vol] 5 mmol/L Low 6 - 16 mEq/L [facility] Remisol Chloride [Moles/Vol] 115 mmol/L High 101 - 1 11 mmol/L [facility] Remisol CO2 [Moles/Vol] 23 mmol/L Normal 21 - 31 mmol/L [facility] Remisol Creatinine [Mass/Vol] 0.9 mg/dL Normal 0.5 - 1.3 mg/dL [facility] Remisol GFR/1.73 sq M.predicted among non-blacks MDRD (S/P/Bld) [Vol rate/Area] 70 mL/min/1.73 m2 Normal >=59mL/min/1.7 3 m2 [facility] Chem S Comment on above: Interpretive Data: C hronic kidney disease could be indicated at eGFR's of less than 60 mL/min/1.73m2. Kidney failure is indicated at less than 15 mL/min/1.73m2. Potassium [Moles/Vol] 3.7 mmol/L Normal 3.5 - 5.3 mmol/L [facility] Remisol Sodium [Moles/Vol] 139 mmol/L Normal 135 - 145 mmol/L [facility] Remisol Urea nitrogen [Mass/Vol] 21 mg/dL Normal 5 - 21 mg/dL [facility] Remisol Capillary Glucose POCon 11-30 Glucose [Mass/Vol] 124 mg/dL High 55-99 [facility] Comment on above: Result Comment: Fausto CHAUDHARY Performed By: #### 2 [id number] ####[facility] [address] [place] [address] Glucose [Mass/Vol] 126 mg/dL High 55-99 [facility] Comment on above: Result Comment: Fausto CHAUDHARY Performed By: #### 2 21303430 ####[facility] [address] [place] [address] Glucose [Mass/Vol] 153 mg/dL High 55-99 [facility] Comment on above: Performed By: #### 2 33062024 ####[facility] [address] [place] [address] Glucose [Mass/Vol] 294 mg/dL High 55-99 [facility] Comment on above: Result Comment: Fausto rubi RN/MD Performed By: #### 2 10609488 ####[facility] [address] [place] [address] Creatinineon 12-22-2022 Creatinine [Mass/Vol] 0.9 mg/dL Normal 0.5-1.3 [facility] Comment on above: Performed By: #### 2 774611, 0014053, 79756334, 1683821, 0986803, 8208314 ####[facility] [address] [place] [address] HEMATOLOGYOrdered By: SYSTEM SYSTEM on 12-22-2022 Basophils/100 WBC (Bld) 0.5 % Normal 0.0 - 2.0 % [facility] Basophils/Leukocytes Auto (Bld) [Pure # fraction] 0.0 E9/L Normal 0.0 - 0.2 E9/L [facility] Eosinophils/100 WBC (Bld) 1.1 % Normal 0.0 - 8.0 % [facility] Eosinophils/Leukocytes Auto (Bld) [Pure # fraction] 0.1 E9/L Normal 0.0 - 0.5 E9/L [facility] Lymphocytes/100 WBC (Bld) 20.4 % Normal 14.0 - 50.0 % [facility] Lymphocytes/Leukocytes Auto (Bld) [Pure # fraction] 1.5 E9/L Normal 1.0 - 4.0 E9/L [facility] Monocytes/100 WBC (Bld) 11.4 % Normal 4.0 - 14.0 % [facility] Monocytes/Leukocytes Auto (Bld) [Pure # fraction] 0.9 E9/L Normal 0.2 - 1.0 E9/L [facility] Neutrophils/100 WBC (Bld) 66.6 % Normal 36.0 - 75.0 % FT [facility] Neutrophils/Leukocytes Auto (Bld) [Pure # fraction] 5.0 E9/L Normal 2.0 - 7.5 E9/L FT [facility] HEMATOLOGYOrdered By: Kirstin King on 12-22-2022 Erythrocyte distribution width (RBC) [Ratio] 17.5 % High 10.9 - 14.2 % FT [facility] Hematocrit (Bld) [Volume fraction] 21.8 % Low 34.0 - 46.0 % FT [facility] Hemoglobin (Bld) [Mass/Vol] 7.2 g/dL Low 12.0 - 16.0 gm/dL FT [facility] MCH (RBC) [Entitic mass] 28.2 pg Normal 27.0 - 34.0 pg FT [facility] MCHC (RBC) [Mass/Vol] 32.9 g/dL Normal 31.4 - 36.0 gm/dL FT [facility] MCV (RBC) [Entitic vol] 85.7 fL Normal 80.0 - 100.0 fL [facility] Platelet mean volume (Bld) [Entitic vol] 7.8 fL Normal 6.4 - 10.8 fL [facility] Platelets (Bld) [#/Vol] 337.0 E9/L Normal 150. 0 - 500.0 E9/L [facility] RBC (Bld) [#/Vol] 2.5 E12/L Low 4.3 - 5.9 E12/L [facility] WBC corrected for nucl RBC Auto (Bld) [#/Vol] 7.4 E9/L Normal 4.0 - 11.0 E9/L [facility] HemeAutoSS Lyteson 12-22-2022 Anion gap [Moles/Vol] 5 mmol/L Low 6-16 [facility] Comment on above: Performed By: #### 2 422961, 2327956, 61368974, 0835184, 4972518, 1407659 ####[facility] [address] [place] [address] Chloride [Moles/Vol] 115 mmol/L High 101-111 [facility] Comment on above: Performed By: #### 2 677316, 1376272, 29273614, 9869906, 0542369, 4643538 ####[facility] [address] [place] [address] CO2 [Moles/Vol] 23 mmol/L Normal 21-31 [facility] Comment on above: Performed By: #### 2 052693, 1504595, 96550049, 7946192, 8522975, 6145481 ####[facility] [address] [place] [address] Potassium [Moles/Vol] 3.7 mmol/L Normal 3.5-5.3 [facility] Comment on above: Performed By: #### 2 981208, 0215650, 71776493, 2272101, 0025810, 0503938 ####[facility] [address] [place] [address] Sodium [Moles/Vol] 139 mmol/L Normal 135-145 [facility] Comment on above: Performed By: #### 2 881146, 0037858, 85428656, 0343095, 9569930, 0583776 ####[facility] [address] [place] [address] Progress Note-Physicianon Progress Note-Physician Normal [facility] Comment on above: Result Comment: Elec tronically Signed By: Joaquim Noe DO\.br\Date and Time Signed: 12/22/22 20:14 EDT Progress Note-Physician Normal F [facility] Comment on above: Result Comment: Elec tronically Signed By: Cordell Grossman DO\.br\Date and Time Signed: 12/22/22 15:53 EDT eGFRon 12-22-2022 GFR/1.73 sq M.predicted among non-blacks MDRD (S/P/Bld) [Vol rate/Area] 70 mL/min/1.73 m2 Normal >=59 [facility] Comment on above: Order Comment: Order added by Discern Expert. Result Comment: Diabetes Territory Manager marquez kidney disease could be indicated at eGFR's of less than 60 mL/min/1.73m2. Kidney failure is indicated at less than 15 mL/min/1.73m2. Performed By: #### 2 401615, 6307290, 59184334, 2753933, 2024983, 2132583 ####[facility] [address] [place] [address] Auto Diffon 12-21-2022 Basophils/100 WBC (Bld) 0.1 % Normal 0.0-2.0 [facility] Comment on above: Order Comment: Order Added by Discern Expert. Performed By: #### 2 701107, 01841594, 3642416, 2381668, 4988010, 7890224 ####[address] [place] [place] [address] Basophils/Leukocytes Auto (Bld) [Pure # fraction] 0.0 E9/L Normal 0.0-0.2 [facility] Comment on above: Order Comment: Order Added by Discern Expert. Performed By: #### 2 521714, 93312040, 4601999, 8730528, 0068383, 8721027 ####[address] [place] [address] Eosinophils/100 WBC (Bld) 0.0 % Normal 0.0-8.0 [facility] Comment on above: Order Comment: Order Added by Discern Expert. Performed By: #### 2 576905, 06916284, 1770113, 4721061, 4466155, 5129143 ####[address] [place] [place] [address] Eosinophils/Leukocytes Auto (Bld) [Pure # fraction] 0.0 E9/L Normal 0.0-0.5 [facility] Comment on above: Order Comment: Order Added by Discern Expert. Performed By: #### 2 070722, 58545235, 1396051, 1288350, 2800243, 9560936 ####[address] [place] [address] Lymphocytes/100 WBC (Bld) 6.5 % Low 14.0-50.0 [facility] Comment on above: Order Comment: Order Added by Discern Expert. Performed By: #### 2 019103, 18012434, 7131034, 7750674, 6389022, 8199696 ####[address] [place] [address] Lymphocytes/Leukocytes Auto (Bld) [Pure # fraction] 0.4 E9/L Low 1.0-4.0 [facility] Comment on above: Order Comment: Order Added by Discern Expert. Performed By: #### 2 941436, 33817252, 9004823, 3084522, 2640669, 0827801 ####[address] [place] [address] Monocytes/100 WBC (Bld) 8.7 % Normal 4.0-14.0 [facility] Comment on above: Order Comment: Order Added by Katherine Expert. Performed By: #### 2 927389, 50291566, 8373757, 1423560, 4557374, 5261673 ####[address] [address] Monocytes/Leukocytes Auto (Bld) [Pure # fraction] 0.6 E9/L Normal 0.2-1.0 [facility] Comment on above: Order Comment: Order Added by Katherine Expert. Performed By: #### 2 057980, 38252733, 3895813, 1574557, 2426460, 5598776 ####[address] [address] Neutrophils/100 WBC (Bld) 84.7 % High 36.0-75.0 [facility] Comment on above: Order Comment: Order Added by Katherine Expert. Performed By: #### 2 285652, 16274500, 6938698, 7758572, 0679547, 5876926 ####[address] [place] [address] Neutrophils/Leukocytes Auto (Bld) [Pure # fraction] 5.8 E9/L Normal 2.0-7.5 [facility] Comment on above: Order Comment: Order Added by Katherine Expert. Performed By: #### 2 578967, 84468885, 7638645, 1158933, 3645219, 1044451 ####[facility] [address] [place] [address] BUNon 12-21-2022 Urea nitrogen [Mass/Vol] 22 mg/dL High 5-21 [facility] Comment on above: Performed By: #### 2 226414, 38532865, 9909131, 1461079, 1918255, 6689926 ####[facility] [address] [place] [address] CBC w/ Auto Diffon Erythrocyte distribution width (RBC) [Ratio] 17.9 % High 10.9-14.2 [facility] Comment on above: Performed By: #### 2 309970, 49751547, 0945816, 7574190, 8309140, 5573942 ####[facility] [address] [place] [address] Hematocrit (Bld) [Volume fraction] 23.9 % Low 34.0-46.0 [facility] Comment on above: Performed By: #### 2 948565, 06508119, 8642676, 0612786, 7338265, 3344869 ####[facility] [address] [place] [address] Hemoglobin (Bld) [Mass/Vol] 7.7 g/dL Low 12.0-16.0 [facility] Comment on above: Performed By: #### 2 193434, 91816558, 9610579, 4972686, 4930466, 9078070 ####[facility] [address] [place] [address] MCH (RBC) [Entitic mass] 28.2 pg Normal 27.0-34.0 [facility] Comment on above: Performed By: #### 2 839440, 26490034, 4090926, 6011257, 0668339, 4350200 ####[facility] [address] [place] [address] MCHC (RBC) [Mass/Vol] 32.3 g/dL Normal 31.4-36.0 [facility] Comment on above: Performed By: #### 2 065379, 77448670, 8846036, 6374392, 0746329, 9075221 ####[facility] [address] [place] [address] MCV (RBC) [Entitic vol] 87.1 fL Normal 80.0-100.0 F [facility] Comment on above: Performed By: #### 2 914960, 16778971, 3369097, 4700505, 2913891, 5757296 ####[address] [place] [address] Platelet mean volume (Bld) [Entitic vol] 8.1 fL Normal 6.4-10.8 [facility] Comment on above: Performed By: #### 2 569841, 41164225, 7280712, 1031357, 6094103, 9986560 ####[address] [address] Platelets (Bld) [#/Vol] 320.0 E9/L Normal 150.0-500.0 [facility] Comment on above: Performed By: #### 2 492458, 46704529, 5499019, 3004465, 0617058, 4504126 ####[address] [address] RBC (Bld) [#/Vol] 2.7 E12/L Low 4.3-5.9 [facility] Comment on above: Performed By: #### 2 351770, 59773630, 5577080, 2741531, 9400151, 8359819 ####[place] [place] [address] WBC corrected for nucl RBC Auto (Bld) [#/Vol] 6.8 E9/L Normal 4.0-11.0 [facility] Comment on above: Performed By: #### 2 346498, 38797231, 8383299, 5547438, 7869649, 0579094 ####[facility] [address] [place] [address] CHEMISTRYOrdered By: SYSTEM SYSTEM on 12-21-2022 Anion gap [Moles/Vol] 7 mmol/L Normal 6 - 16 mEq/L [facility] Remisol Chloride [Moles/Vol] 112 mmol/L High 101 - 1 11 mmol/L [facility] Remisol CO2 [Moles/Vol] 24 mmol/L Normal 21 - 31 mmol/L [facility] Remisol Creatinine [Mass/Vol] 1.1 mg/dL Normal 0.5 - 1.3 mg/dL [facility] Remisol GFR/1.73 sq M.predicted among non-blacks MDRD (S/P/Bld) [Vol rate/Area] 55 mL/min/1.73 m2 Low >=59mL/min/1.7 3 m2 [facility] Chem S Comment on above: Interpretive Data: C hronic kidney disease could be indicated at eGFR's of less than 60 mL/min/1.73m2. Kidney failure is indicated at less than 15 mL/min/1.73m2. Potassium [Moles/Vol] 5.2 mmol/L Normal 3.5 - 5.3 mmol/L [facility] Remisol Sodium [Moles/Vol] 138 mmol/L Normal 135 - 145 mmol/L [facility] Remisol Urea nitrogen [Mass/Vol] 22 mg/dL High 5 - 21 mg/dL [facility] Remisol Capillary Glucose POCon 11-30 Glucose [Mass/Vol] 288 mg/dL High 55-99 [facility] Comment on above: Performed By: #### 2 [id number] ####[facility] [address] [place] [address] Glucose [Mass/Vol] 323 mg/dL High 55-99 [facility] Comment on above: Result Comment: Fausto rubi RN/ Performed By: #### 2 91258818 ####[facility] [address] [place] [address] Glucose [Mass/Vol] 353 mg/dL High 55-99 [facility] Comment on above: Performed By: #### 2 01014938 ####[facility] [address] [place] [address] Glucose [Mass/Vol] 281 mg/dL High 55-99 [facility] Comment on above: Result Comment: Fausto rubi RN/ Performed By: #### 2 05116230 ####[facility] [address] [place] [address] Creatinineon 12-21-2022 Creatinine [Mass/Vol] 1.1 mg/dL Normal 0.5-1.3 [facility] Comment on above: Performed By: #### 2 142813, 00773288, 4063820, 2157714, 0815290, 6071016 ####[facility] [address] [place] [address] HEMATOLOGYOrdered By: SYSTEM SYSTEM on 12-21-2022 Basophils/100 WBC (Bld) 0.1 % Normal 0.0 - 2.0 % [facility] Basophils/Leukocytes Auto (Bld) [Pure # fraction] 0.0 E9/L Normal 0.0 - 0.2 E9/L [facility] Eosinophils/100 WBC (Bld) 0.0 % Normal 0.0 - 8.0 % [facility] Eosinophils/Leukocytes Auto (Bld) [Pure # fraction] 0.0 E9/L Normal 0.0 - 0.5 E9/L [facility] Lymphocytes/100 WBC (Bld) 6.5 % Low 14.0 - 50.0 % [facility] Lymphocytes/Leukocytes Auto (Bld) [Pure # fraction] 0.4 E9/L Low 1.0 - 4.0 E9/L [facility] Monocytes/100 WBC (Bld) 8.7 % Normal 4.0 - 14.0 % [facility] Monocytes/Leukocytes Auto (Bld) [Pure # fraction] 0.6 E9/L Normal 0.2 - 1.0 E9/L [facility] Neutrophils/100 WBC (Bld) 84.7 % High 36.0 - 75.0 % [facility] Neutrophils/Leukocytes Auto (Bld) [Pure # fraction] 5.8 E9/L Normal 2.0 - 7.5 E9/L [facility] HEMATOLOGYOrdered By: David Gasca on 12-21-2022 Erythrocyte distribution width (RBC) [Ratio] 17.9 % High 10.9 - 14.2 % [facility] Hematocrit (Bld) [Volume fraction] 23.9 % Low 34.0 - 46.0 % [facility] [place] [facility] Hemoglobin (Bld) [Mass/Vol] 7.7 g/dL Low 12.0 - 16.0 gm/dL [facility] MCH (RBC) [Entitic mass] 28.2 pg Normal 27.0 - 34.0 pg [facility] MCHC (RBC) [Mass/Vol] 32.3 g/dL Normal 31.4 - 36.0 gm/dL [facility] MCV (RBC) [Entitic vol] 87.1 fL Normal 80.0 - 100.0 fL [facility] Platelet mean volume (Bld) [Entitic vol] 8.1 fL Normal 6.4 - 10.8 fL [facility] [place] [facility] Platelets (Bld) [#/Vol] 320.0 E9/L Normal 150. 0 - 500.0 E9/L [facility] RBC (Bld) [#/Vol] 2.7 E12/L Low 4.3 - 5.9 E12/L [facility] WBC corrected for nucl RBC Auto (Bld) [#/Vol] 6.8 E9/L Normal 4.0 - 11.0 E9/L [facility] HemeAutoSS Interdisciplinary Note - Timo n 12-21-2022 Interdisciplinary Note - OT Normal [facility] Interdisciplinary Note - PTo n 12-21-2022 Interdisciplinary Note - PT Normal [facility] Lyteson 12-21-2022 Anion gap [Moles/Vol] 7 mmol/L Normal 6-16 [facility] Comment on above: Performed By: #### 2 896466, 25638409, 2717731, 5690908, 2185346, 7433023 ####[facility] [address] [place] [address] Chloride [Moles/Vol] 112 mmol/L High 101-111 [facility] Comment on above: Performed By: #### 2 990052, 36262981, 8768120, 8729546, 3095738, 6477122 ####[facility] [address] [place] [address] CO2 [Moles/Vol] 24 mmol/L Normal 21-31 [facility] Comment on above: Performed By: #### 2 764081, 84486348, 0984865, 4851069, 3752031, 6296082 ####[facility] [address] AveNorbat[address] [place] [address] Potassium [Moles/Vol] 5.2 mmol/L Normal 3.5-5.3 [facility] Comment on above: Performed By: #### 2 030100, 56324802, 8070383, 6762893, 5750460, 7113645 ####[facility] [address] Ave[address]bat[address] [place] [address] Sodium [Moles/Vol] 138 mmol/L Normal 135-145 [facility] Comment on above: Performed By: #### 2 648770, 14654951, 5505927, 8760716, 8291592, 3072598 ####[facility] [address] [place] [address] Operative Reporton Operative Report Normal [facility] Comment on above: Result Comment: Elec tronically Signed By: Joaquim Noe DO\.br\Date and Time Signed: 12/21/22 14:02 EDT Progress Note-Physicianon Progress Note-Physician Normal [facility] Comment on above: Result Comment: Elec tronically Signed By: MD Juan, Nomi Lehman\.br\Date and Time Signed: 12/21/22 16:59 EDT Progress Note-Physician Normal [facility] Comment on above: Result Comment: Elec tronically Signed By: MD Martinez Ahmad F\.br\Date and Time Signed: 12/21/22 16:52 EDT Progress Note-Physician Normal [facility] Comment on above: Result Comment: Elec tronically Signed By: Joaquim Noe DO.br\Date and Time Signed: 12/21/22 14:41 EDT Progress Note-Physician Normal [facility] Comment on above: Result Comment: Elec tronically Signed By: Cordell Grossman DO\Date and Time Signed: 12/21/22 11:13 EDT eGFRon 12-21-2022 GFR/1.73 sq M.predicted among non-blacks MDRD (S/P/Bld) [Vol rate/Area] 55 mL/min/1.73 m2 Low >=59 [facility] Comment on above: Order Comment: Order added by Discern Expert. Result Comment: Diabetes Territory Manager marquez kidney disease could be indicated at eGFR's of less than 60 mL/min/1.73m2. Kidney failure is indicated at less than 15 mL/min/1.73m2. Performed By: #### 2 325770, 44210118, 7634282, 5627225, 7797493, 2556104 ####[facility] [address] [place] [address] .Manual Abson 12-20-2022 Basophils/Leukocytes Manual cnt (Bld) [Pure # fraction] 0.0 E9/L Normal 0.0-0.2 [facility] Comment on above: Performed By: #### 2 813598, 8422559, 69256874, 4268138, 80583282, 54999785, 6381094 ####[facility] [address] [place] [address] Eosinophils/Leukocytes Manual cnt (Bld) [Pure # fraction] 0.1 E9/L Normal 0.0-0.5 [facility] Comment on above: Performed By: #### 2 764347, 7856447, 76608249, 8556596, 98886195, 27986012, 0742449 ####[facility] [address] [place] [address] Lymphocytes/Leukocytes Manual cnt (Bld) [Pure # fraction] 1.0 E9/L Normal 1.0-4.0 [facility] Comment on above: Performed By: #### 2 638226, 5792131, 10539460, 2846013, 05419281, 77144676, 1494037 ####[place] [place] [address] Monocytes/Leukocytes Manual cnt (Bld) [Pure # fraction] 0.5 E9/L Normal 0.2-1.0 [facility] Comment on above: Performed By: #### 2 173873, 8611121, 69412167, 6626685, 97954769, 03579902, 0179024 ####[address] [place] [address] Neutrophils/Leukocytes Auto (Bld) [Pure # fraction] 4.2 E9/L Normal 2.0-7.5 [facility] Comment on above: Performed By: #### 2 004885, 1284140, 61972935, 2919652, 28861276, 02808239, 0020643 ####[address] [address] ABO/Rhon 12-20-2022 ABO/Rh Positive Invalid Interpretation Code [facility] Comment on above: Performed By: #### 1 7336210, 41705018, 76983691, 1886906 ####[address] [address] ABO/Rh History Checkon 12-20 ABO/Rh History Check Verified Hx Blood Type Normal [facility] Comment on above: Performed By: #### 1 5810794, 20556296, 10049451, 9952185 ####[address] [address] ABSCon 12-20-2022 ABSC Gel Interp Negative Normal [facility] Comment on above: Performed By: #### 1 3768948, 97392933, 77451899, 7481713 ####[address] [place] [address] Auto Diffon 12-20-2022 Basophils/100 WBC (Bld) 0.1 % Normal 0.0-2.0 [facility] Comment on above: Order Comment: Order Added by Discern Expert. Performed By: #### 2 161748, 1994660, 6250516, 21808738, 2367193 ####[address] [place] [address] Basophils/Leukocytes Auto (Bld) [Pure # fraction] 0.0 E9/L Normal 0.0-0.2 [facility] Comment on above: Order Comment: Order Added by Katherine Expert. Performed By: #### 2 868533, 8307096, 6677404, 19246980, 6534625 ####[address] [address] Eosinophils/100 WBC (Bld) 0.2 % Normal 0.0-8.0 [facility] Comment on above: Order Comment: Order Added by Katherine Expert. Performed By: #### 2 443420, 3106207, 7935859, 31049894, 3870596 ####[address] [address] Eosinophils/Leukocytes Auto (Bld) [Pure # fraction] 0.0 E9/L Normal 0.0-0.5 [facility] Comment on above: Order Comment: Order Added by Katherine Expert. Performed By: #### 2 447777, 4574323, 0984268, 17601657, 4909839 ####[address] [address] Lymphocytes/100 WBC (Bld) 3.8 % Low 14.0-50.0 [facility] Comment on above: Order Comment: Order Added by Katherine Expert. Performed By: #### 2 168880, 7945151, 9434383, 64311576, 1872676 ####[address] [address] Lymphocytes/Leukocytes Auto (Bld) [Pure # fraction] 0.4 E9/L Low 1.0-4.0 [facility] Comment on above: Order Comment: Order Added by Katherine Expert. Performed By: #### 2 732846, 8317139, 0376402, 88701991, 0384254 ####[facility] [address] [place] [address] Monocytes/100 WBC (Bld) 6.3 % Normal 4.0-14.0 [facility] Comment on above: Order Comment: Order Added by Discern Expert. Performed By: #### 2 830106, 4584725, 7165618, 56531084, 3064720 ####[address] [place] [address] Monocytes/Leukocytes Auto (Bld) [Pure # fraction] 0.6 E9/L Normal 0.2-1.0 [facility] Comment on above: Order Comment: Order Added by Discern Expert. Performed By: #### 2 880148, 6959543, 0518093, 03679630, 9446188 ####[address] [place] [address] Neutrophils/100 WBC (Bld) 89.6 % High 36.0-75.0 [facility] Comment on above: Order Comment: Order Added by Discern Expert. Performed By: #### 2 953971, 1229505, 0959066, 43233170, 0368506 ####[address] [place] [address] Neutrophils/Leukocytes Auto (Bld) [Pure # fraction] 8.7 E9/L High 2.0-7.5 [facility] Comment on above: Order Comment: Order Added by Discern Expert. Performed By: #### 2 620064, 0109870, 7728924, 94372680, 0394691 ####[address] [place] [address] BLOOD BANKOrdered By: Kirstin King on 12-20-2022 ABO/Rh Interp Positive Invalid Interpretation Code [facility] BB Subsection ABSC Gel Interp Negative (12/20/22 12:15 PM) Normal [facility] BB Subsection BMPon 12-20-2022 Anion gap [Moles/Vol] 10 mmol/L Normal 6-16 [facility] Comment on above: Performed By: #### 2 469849, 2251910, 0944183, 30908112, 9045585 ####[facility] [address]Norbat[address] [place] [address] Calcium [Mass/Vol] 8.4 mg/dL Low 8.9-11.1 [facility] Comment on above: Performed By: #### 2 022294, 1866136, 8070265, 39788990, 3213697 ####[facility] [address] [place] [address] Chloride [Moles/Vol] 109 mmol/L Normal 101-111 [facility] Comment on above: Performed By: #### 2 522028, 2947266, 5401151, 39927144, 2978127 ####[facility] [address] [place] [address] CO2 [Moles/Vol] 23 mmol/L Normal 21-31 [facility] Comment on above: Performed By: #### 2 453856, 6932285, 7234939, 29333864, 2152455 ####[facility] [address] [place] [address] Creatinine [Mass/Vol] 0.7 mg/dL Normal 0.5-1.3 [facility] Comment on above: Performed By: #### 2 055784, 9063011, 2803643, 39594579, 9492414 ####[facility] [address] [facility] [place] [address] Glucose [Mass/Vol] 242 mg/dL High 55-199 [facility] Comment on above: Result Comment: If t his glucose result represents a fasting glucose, interpretation should refer to the following reference range: 55-99 mg/dL Performed By: #### 2 632516, 9108123, 6876462, 45152484, 8638106 ####[facility] [address] [place] [address] Potassium [Moles/Vol] 4.7 mmol/L Normal 3.5-5.3 [facility] Comment on above: Performed By: #### 2 607022, 1836273, 1140670, 61757451, 8527997 ####[facility] [address] [place] [address] Sodium [Moles/Vol] 137 mmol/L Normal 135-145 [facility] Comment on above: Performed By: #### 2 332752, 5510935, 3879167, 62018352, 3262594 ####[facility] [address] [place] [address] Urea nitrogen [Mass/Vol] 12 mg/dL Normal 5-21 [facility] Comment on above: Performed By: #### 2 105389, 0140544, 1407240, 25069507, 4398303 ####[facility] [address] [place] [address] Urea nitrogen/Creatinine [Mass ratio] 17 No Units Normal 10-20 [facility] Comment on above: Performed By: #### 2 171747, 2201503, 3817191, 20720420, 6598966 ####[facility] [address] [place] [address] Anion gap [Moles/Vol] 7 mmol/L Normal 6-16 [facility] Comment on above: Performed By: #### 2 007285, 1001537, 76837493, 5864497, 80706230, 64489579, 9167533 ####[facility] [address] [place] [address] Calcium [Mass/Vol] 8.4 mg/dL Low 8.9-11.1 [facility] Comment on above: Performed By: #### 2 595176, 4629034, 98331107, 8641019, 16169228, 90499178, 6625883 ####[facility] [address] [place] [address] Chloride [Moles/Vol] 112 mmol/L High 101-111 [facility] Comment on above: Performed By: #### 2 131613, 7515280, 25705935, 2041854, 34582444, 47952071, 8899488 ####[facility] [address] [place] [address] CO2 [Moles/Vol] 24 mmol/L Normal 21-31 [facility] Comment on above: Performed By: #### 2 515678, 3799440, 55603131, 3205816, 64579772, 82476738, 1563319 ####[facility] [address] [place] [address] Creatinine [Mass/Vol] 0.7 mg/dL Normal 0.5-1.3 [facility] Comment on above: Performed By: #### 2 685005, 7274153, 45650266, 9065734, 86435221, 00756635, 1902941 ####[facility] [address] [place] [address] Glucose [Mass/Vol] 166 mg/dL Normal 55-199 [facility] Comment on above: Result Comment: If t his glucose result represents a fasting glucose, interpretation should refer to the following reference range: 55-99 mg/dL Performed By: #### 2 257541, 4687072, 02571292, 2124775, 84139842, 53379973, 3783043 ####[facility] [address] [place] [address] Potassium [Moles/Vol] 3.9 mmol/L Normal 3.5-5.3 [facility] Comment on above: Performed By: #### 2 329595, 4618311, 02183265, 1847070, 04045925, 32239095, 4887831 ####[facility] [address] [place] [address] Sodium [Moles/Vol] 139 mmol/L Normal 135-145 [facility] Comment on above: Performed By: #### 2 338362, 7836836, 25174087, 8832547, 28507607, 31081853, 6682834 ####[facility] [address] [place] [address] Urea nitrogen [Mass/Vol] 14 mg/dL Normal 5-21 [facility] Comment on above: Performed By: #### 2 940218, 2150648, 94454055, 2411275, 24534031, 96201791, 1427303 ####[facility] [address] [place] [address] Urea nitrogen/Creatinine [Mass ratio] 20 No Units Normal 10-20 [facility] Comment on above: Performed By: #### 2 547260, 5365521, 22522114, 1143920, 60103463, 95406276, 6260633 ####[facility] [address] [place] [address] Blood Bank ID#on 12-20-2022 BBID# [id number] Invalid Interpretation Code [facility] Comment on above: Performed By: #### 1 5993910, 68665680, 28134635, 6315097 ####[address] [place] [address] CBC w/ Auto Diffon 3 Erythrocyte distribution width (RBC) [Ratio] 17.7 % High 10.9-14.2 [facility] Comment on above: Performed By: #### 2 277745, 2442232, 2969285, 98390279, 3789320 ####[facility] [address] [place] [address] Hematocrit (Bld) [Volume fraction] 26.3 % Low 34.0-46.0 [facility] Comment on above: Performed By: #### 2 950166, 4966939, 8316663, 38450281, 4053085 ####[facility] [address] [place] [address] Hemoglobin (Bld) [Mass/Vol] 8.5 g/dL Low 12.0-16.0 [facility] Comment on above: Performed By: #### 2 728526, 8208314, 7380392, 93050740, 2100241 ####[facility] [address] [place] [address] MCH (RBC) [Entitic mass] 28.1 pg Normal 27.0-34.0 [facility] Comment on above: Performed By: #### 2 573085, 8257285, 4457612, 76968518, 6588347 ####[facility] [address] [place] [address] MCHC (RBC) [Mass/Vol] 32.5 g/dL Normal 31.4-36.0 [facility] Comment on above: Performed By: #### 2 803836, 9224017, 5510417, 50470013, 7800408 ####[address] [address] MCV (RBC) [Entitic vol] 86.4 fL Normal 80.0-100.0 [facility] Comment on above: Performed By: #### 2 377074, 2938107, 8764235, 28215993, 7648964 ####[place] [address] Platelet mean volume (Bld) [Entitic vol] 7.4 fL Normal 6.4-10.8 [facility] Comment on above: Performed By: #### 2 560598, 8883272, 5210893, 75120514, 1693692 ####[address] [address] Platelets (Bld) [#/Vol] 362.0 E9/L Normal 150.0-500.0 [facility] Comment on above: Performed By: #### 2 192542, 2335859, 4585981, 14291747, 3555399 ####[facility] [address] [place] [address] RBC (Bld) [#/Vol] 3.0 E12/L Low 4.3-5.9 [facility] Comment on above: Performed By: #### 2 483921, 4278145, 7149038, 98934068, 1340955 ####[facility] [address] [place] [address] WBC corrected for nucl RBC Auto (Bld) [#/Vol] 9.8 E9/L Normal 4.0-11.0 [facility] Comment on above: Performed By: #### 2 944583, 9620539, 6565043, 70458516, 4417057 ####[facility] [address] [place] [address] Erythrocyte distribution width (RBC) [Ratio] 14.9 % High 10.9-14.2 [facility] Comment on above: Performed By: #### 2 178476, 7217071, 95004027, 8484092, 70250720, 48307424, 7145994 ####[facility] [address] [place] [address] Hematocrit (Bld) [Volume fraction] 22.1 % Low 34.0-46.0 [facility] Comment on above: Performed By: #### 2 876830, 0027209, 09307780, 4642505, 18438906, 12261251, 0150070 ####[facility] [address] [place] [address] Hemoglobin (Bld) [Mass/Vol] 7.5 g/dL Low 12.0-16.0 [facility] Comment on above: Performed By: #### 2 062055, 8661930, 89209702, 9840395, 31079286, 87929472, 4309826 ####[facility] [address] [place] [address] MCH (RBC) [Entitic mass] 29.7 pg Normal 27.0-34.0 [facility] Comment on above: Performed By: #### 2 857519, 9403317, 15928603, 9326263, 35824838, 32142049, 3274430 ####[address] [place] [address] MCHC (RBC) [Mass/Vol] 33.9 g/dL Normal 31.4-36.0 [facility] Comment on above: Performed By: #### 2 912089, 8007462, 29216707, 5862319, 50513605, 64909010, 0085534 ####[address] [place] [address] MCV (RBC) [Entitic vol] 87.6 fL Normal 80.0-100.0 [facility] Comment on above: Performed By: #### 2 647402, 8567059, 38375451, 5427109, 68903194, 09627215, 8393822 ####[address] [place] [address] Platelet mean volume (Bld) [Entitic vol] 8.1 fL Normal 6.4-10.8 [facility] Comment on above: Performed By: #### 2 044389, 1966616, 14695512, 4853091, 28389884, 55371243, 5166477 ####[address] [address] Platelets (Bld) [#/Vol] 346.0 E9/L Normal 150.0-500.0 [facility] Comment on above: Performed By: #### 2 786323, 5541337, 00460956, 6857847, 92292255, 74231554, 8794024 ####[address] [place] [address] RBC (Bld) [#/Vol] 2.5 E12/L Low 4.3-5.9 [facility] Comment on above: Performed By: #### 2 009820, 8631466, 56818143, 5773083, 13427911, 02146939, 8470964 ####[address] [place] [address] WBC corrected for nucl RBC Auto (Bld) [#/Vol] 5.9 E9/L Normal 4.0-11.0 [facility] Comment on above: Performed By: #### 2 276578, 4648855, 36461419, 8629928, 54372701, 31172161, 7815288 ####[address] [place] [address] CHEMISTRYOrdered By: SYSTEM SYSTEM on 12-20-2022 Calcium [Mass/Vol] 8.4 mg/dL Low 8.9 - 11. 1 mg/dL [facility] Remisol CK [Catalytic activity/Vol] 57 [iU]/d Normal 14 - 261 Int._Unit/L [facility] Glucose [Mass/Vol] 242 mg/dL High 55 - 199 mg/dL [facility] Comment on above: Interpretive Data: I f this glucose result represents a fasting glucose, interpretation should refer to the following reference range: 55-99 mg/dL Urea nitrogen/Creatinine [Mass ratio] 17 mg/mg Normal 10 - 20 [facility] Calcium [Mass/Vol] 8.4 mg/dL Low 8.9 - 11. 1 mg/dL [facility] Remisol CRP [Mass/Vol] 14.3 mg/dL High <=1.9mg/dL [facility] Remis ol Glucose [Mass/Vol] 166 mg/dL Normal 55 - 199 mg/dL [facility] Comment on above: Interpretive Data: I f this glucose result represents a fasting glucose, interpretation should refer to the following reference range: 55-99 mg/dL Urea nitrogen/Creatinine [Mass ratio] 20 mg/mg Normal 10 - 20 [facility] Remisol CKon 12-20-2022 CK [Catalytic activity/Vol] 57 Int._Unit/L Normal 14-261 [facility] Comment on above: Performed By: #### 2 302360, 7974639, 0407441, 53806890, 5005378 ####[facility] [address] [place] [address] CRPon 12-20-2022 CRP [Mass/Vol] 14.3 mg/dL High <=1.9 [facility] Comment on above: Performed By: #### 2 102721, 4753672, 07249895, 6076974, 21637231, 41129102, 6680676 ####[facility] [address] [place] [address] Capillary Glucose POCon 11-30 Glucose [Mass/Vol] 134 mg/dL High 55-99 [facility] Comment on above: Result Comment: Fausto CHAUDHARY Performed By: #### 2 49349631 ####[facility] [address] [place] [address] Glucose [Mass/Vol] 166 mg/dL High [address] [place] [address] Comment on above: Result Comment: Fausto CHAUDHARY Performed By: #### 2 64351151 ####[facility] [address] [place] [address] Glucose [Mass/Vol] 237 mg/dL High [address] [place] [address] Comment on above: Performed By: #### 2 99383119 ####[facility] [address] [place] [address] Glucose [Mass/Vol] 307 mg/dL High [address] [place] [address] Comment on above: Result Comment: Fausto CHAUDHARY Performed By: #### 2 28244616 ####[facility] [address] [place] [address] Consent for Treatmenton 11-30 Consent for Treatment [id number]:127 Normal [facility] Consent for Treatment [id number]#[id number]:127 Normal [facility] Consultation Noteon 12-21-19 23 Consultation Note Normal [facility] Comment on above: Result Comment: Elec tronically Signed By: Cordell Grossman DO\Date and Time Signed: 12/20/22 14:36 EDT HEMATOLOGYOrdered By: Anju Marino on 12-20-2022 Band form neutrophils/100 WBC (Bld) 0 % Normal 0 - 10 % [facility] HemeManSS Basophils/100 WBC (Bld) 0 % Normal 0 - 2 % F [facility] HemeManSS Basophils/Leukocytes Manual cnt (Bld) [Pure # fraction] 0.0 E9/L Normal 0.0 - 0.2 E9/L [facility]eManSS Eosinophils/100 WBC (Bld) 2 % Normal 0 - 8 % [facility] HemeManSS Eosinophils/Leukocytes Manual cnt (Bld) [Pure # fraction] 0.1 E9/L Normal 0.0 - 0.5 E9/L FT [facility]eManSS Lymphocytes/100 WBC (Bld) 17 % Normal 14 - 50 % [facility] HemeManSS Lymphocytes/Leukocytes Manual cnt (Bld) [Pure # fraction] 1.0 E9/L Normal 1.0 - 4.0 E9/L [facility] HemeManSS Monocytes/100 WBC (Bld) 9 % Normal 4 - 14 % [facility] HemeManSS Monocytes/Leukocytes Manual cnt (Bld) [Pure # fraction] 0.5 E9/L Normal 0.2 - 1.0 E9/L FT HemeManSS Neutrophils/Leukocytes Auto (Bld) [Pure # fraction] 4.2 E9/L Normal 2.0 - 7.5 E9/L [facility] HemeManSS Sed Rate Automated 87 mm/h High 0 - 34 mm/hr FT HemeAutoSS Segmented neutrophils/100 WBC (Bld) 72 % Normal 36 - 75 % [facility] HemeManSS Variant lymphocytes LM Ql (Bld) 0 % Normal <=0% [facility] HemeManSS Insurance Correspondence Off iceon 12-20-2022 Insurance Correspondence Office [id number]#[id number]:127 Normal [facility] Interdisciplinary Note - Hardeep e Manageron 12-20-2022 Interdisciplinary Note - Systems Software Manager Normal [facility] Comment on above: Result Comment: Elec tronically Signed By: Radha Prabhakar\.br\Date and Time Signed: 12/20/22 13:36 EDT Main OR Intraoperative Recor don 12-20-2022 Main OR Intraoperative Record Normal [facility] Main OR PACU I Recordon 11-30 Main OR PACU I Record Normal [facility] Main OR Preoperative Recordo n 12-20-2022 Main OR Preoperative Record Normal [facility] Manual Diffon 12-20-2022 Band form neutrophils/100 WBC (Bld) 0 % Normal 0-10 [facility] Comment on above: Order Comment: Order Added by Discern Expert. Performed By: #### 2 658256, 8231929, 53234080, 9826718, 19158969, 46253934, 8598145 ####[facility] [address] [place] [address] Basophils/100 WBC (Bld) 0 % Normal 0-2 [facility] Comment on above: Order Comment: Order Added by Discern Expert. Performed By: #### 2 780278, 8882743, 85793980, 9954744, 24566912, 20802066, 9160781 ####[facility] [address] [place] [address] Eosinophils/100 WBC (Bld) 2 % Normal 0-8 [facility] Comment on above: Order Comment: Order Added by Discern Expert. Performed By: #### 2 381750, 4993758, 55813653, 4858535, 23491080, 73294034, 6393990 ####[facility] [address] [place] [address] Lymphocytes/100 WBC (Bld) 17 % Normal 14-50 [facility] Comment on above: Order Comment: Order Added by Discern Expert. Performed By: #### 2 917397, 7982841, 34311797, 7196068, 01955524, 44642288, 6666499 ####[facility] [address] [place] [address] Monocytes/100 WBC (Bld) 9 % Normal 4-14 F [facility] Comment on above: Order Comment: Order Added by Discern Expert. Performed By: #### 2 [id number], [id number], [id number], 0508119, [id number], [id number], [id number] ####[facility] [address] [place] [address] Segmented neutrophils/100 WBC (Bld) 72 % Normal 36-75 [facility] Comment on above: Order Comment: Order Added by Discern Expert. Performed By: #### 2 [id number], 0120545, [id number], 8029921, 79562397, [id number], [id number] ####[facility] [address] [place] [address] Variant lymphocytes LM Ql (Bld) 0 % Normal <=0 [facility] Comment on above: Order Comment: Order Added by Discern Expert. Performed By: #### 2 017012, 5705383, [id number], 9600096, 76076324, 32541919, 7886181 ####[facility] [address] [place] [address] Message from Medicare 11-30 Message from Medicare [id number]:127 Normal [facility] Message from Medicare [id number]#1.00CD:127 Normal [facility] Comment on above: Other Comment: forgo t to scan the back of it Monitor Recordon 12-20-2022 Monitor Record [id number]#1.00CD:127 Normal [facility] Monitor Record [id number]#[id number]:127 Normal [facility] No Panel InformationOrdered By: Pita Butterfield on 12-20-2022 GS 2+ White Blood Cells 1+ Gram Positive Rods Occassional crystals seen on the slide [facility] Wound Culture 1+ Gram Positive Rods resembling diphtheroids [facility] GS 1+ White Blood Cells 2+ Gram Positive Rods Occassional crystals seen on the slide [facility] Wound Culture 1+ Gram Positive Rods resembling diphtheroids [facility] RCOon 12-20-2022 # of Units 1 Invalid Interpretation Code [facility] Comment on above: Order Comment: Blood product ready and called to STACIE _ at _12/20/2022 14:43:34 EDT by amh_. Performed By: #### 1 [id number] ####[facility] [address] [place] [address] Date Required 20221220 Invalid Interpretation Code [facility] Comment on above: Order Comment: Blood product ready and called to STACIE _ at _9/ 14:43:34 EDT by amh_. Performed By: #### 1 [id number] ####[facility] [address] [place] [address] Order to Transfuse Yes Normal [facility] Comment on above: Order Comment: Blood product ready and called to STACIE _ at _12/20/2022 14:43:34 EDT by amh_. Performed By: #### 1 [id number] ####[facility] [address] [place] [address] Product Type None Required Invalid Interpretation Code [facility] Comment on above: Order Comment: Blood product ready and called to STACIE _ at _12/20/2022 14:43:34 EDT by amh_. Performed By: #### 1 [id number] ####[facility] [address] [place] [address] Sed Rate Automatedon 023 Sed Rate Automated 87 mm/hr High 0-34 [facility] Comment on above: Performed By: #### 2 612563, 2175495, 31084766, 8650208, 92968727, 11912568, 3555946 ####[facility] [address] [place] [address] XR Hip 1 View Right + Pelvis on 12-20-2022 XR Hip 1 View Right + Pelvis Normal [facility] eGFRon 12-20-2022 GFR/1.73 sq M.predicted among non-blacks MDRD (S/P/Bld) [Vol rate/Area] 94 mL/min/1.73 m2 Normal >=59 [facility] Comment on above: Order Comment: Order added by Discern Expert. Result Comment: Diabetes Territory Manager marquez kidney disease could be indicated at eGFR's of less than 60 mL/min/1.73m2. Kidney failure is indicated at less than 15 mL/min/1.73m2. Performed By: #### 2 095340, 3618892, 0020714, 36886657, 9969314 ####[facility] [address] [place] [address] GFR/1.73 sq M.predicted among non-blacks MDRD (S/P/Bld) [Vol rate/Area] 94 mL/min/1.73 m2 Normal >=59 [facility] Comment on above: Order Comment: Order added by Discern Expert. Result Comment: Diabetes Territory Manager marquez kidney disease could be indicated at eGFR's of less than 60 mL/min/1.73m2. Kidney failure is indicated at less than 15 mL/min/1.73m2. Performed By: #### 2 829754, 9509306, 96424021, 8180140, 93548898, 72325684, 9722338 ####[facility] [address] [place] [address] Capillary Glucose POCon 11-30 Glucose [Mass/Vol] 396 mg/dL [address] Comment on above: Result Comment: Lucille ronak Meter Performed By: #### 2 [id number] ####[facility] [address] [place] [address] Glucose [Mass/Vol] 212 mg/dL [address] Comment on above: Result Comment: Lucille ronak Meter Performed By: #### 2 [id number] ####[facility] [address] [place] [address] No Panel InformationOrdered By: [facility] on 12-19-2022 Blood Culture Charcoal No growth at 4 days. Final to follow at 7 days. [facility] Capillary Glucose POCon 11-30 Glucose [Mass/Vol] 171 mg/dL [address] Comment on above: Result Comment: Lucille ronak Meter Performed By: #### 2 [id number] ####[facility] Y[address]am[address] [place] [address] Glucose [Mass/Vol] 205 mg/dL [address] Comment on above: Result Comment: Lucille ronak Meter Performed By: #### 2 [id number] ####[facility] [address] [place] [address] Glucose [Mass/Vol] 329 mg/dL [address] Comment on above: Performed By: #### 2 [id number] ####[facility] [address] [place] [address] Glucose [Mass/Vol] 169 mg/dL [facility] Comment on above: Performed By: #### 2 [id number] ####[facility] [address] [place] [address] XR Hip 2-3 Views Right + Pel vison 12-18-2022 XR Hip 2-3 Views Right + Pelvis Normal [facility] Capillary Glucose POCon 11-29 Glucose [Mass/Vol] 209 mg/dL High - [facility] Comment on above: Result Comment: Lucille ronak Meter Performed By: #### 2 [id number] ####[facility] [address] [place] [address] Glucose [Mass/Vol] 187 mg/dL [facility] - [facility] Comment on above: Performed By: #### 2 [id number] ####[facility] Hugzuxgrld[address] AveNorbatavia [place] [address] Glucose [Mass/Vol] 266 mg/dL [facility] Comment on above: Performed By: #### 2 [id number] ####[facility] [address] [place] [address] Glucose [Mass/Vol] 164 mg/dL [facility] - [facility] Comment on above: Result Comment: Lucille ronak Meter Performed By: #### 2 [id number] ####[facility] [address] [place] [address] Capillary Glucose POCon 11-29 Glucose [Mass/Vol] 212 mg/dL High [facility] Comment on above: Result Comment: Lucille ronak Meter Performed By: #### 2 [id number] ####[facility] [address] [place] [address] Glucose [Mass/Vol] 229 mg/dL High [facility] Comment on above: Performed By: #### 2 [id number] ####[facility] Zregggcvjy[address] AveNorbatavia [place] [address] Glucose [Mass/Vol] 152 mg/dL High [address] [place] [address] Comment on above: Result Comment: Lucille ronak Meter Performed By: #### 2 [id number] ####[facility] [address]ebkcbmm[address] AveNorbatavia [place] [address] Capillary Glucose POCon 11-29 Glucose [Mass/Vol] 228 mg/dL High [address] [place] [address] Comment on above: Result Comment: Lucille ronak Meter Performed By: #### 2 [id number] ####[facility] [address]gxdmywppu[address] [place] [address] Glucose [Mass/Vol] 208 mg/dL [address] Comment on above: Result Comment: Repe at TestCleaned Meter Performed By: #### 2 [id number] ####[facility] X[address]ivinaqy[address]84 [facility] [place] [address] Glucose [Mass/Vol] 183 mg/dL [address] Comment on above: Result Comment: Lucille ronak Meter Performed By: #### 2 [id number] ####[facility] Myxfzbbkdt796 [facility] [place] [address] Glucose [Mass/Vol] 281 mg/dL [address] Comment on above: Result Comment: Lucille ronak Meter Performed By: #### 2 [id number] ####[facility] Ytw[address]exi[address] [place] [address] Capillary Glucose POCon 11-29 Glucose [Mass/Vol] 130 mg/dL [address] Comment on above: Result Comment: Lucille ronak Meter Performed By: #### 2 [id number] ####[facility] N[address]ivirby[address] [address] Glucose [Mass/Vol] 144 mg/dL [address] Comment on above: Result Comment: Lucille ronak Meter Performed By: #### 2 [id number] ####[facility] [address]kv[address] [place] [address] Glucose [Mass/Vol] 157 mg/dL High [address] [place] [address] Comment on above: Result Comment: Lucille ronak Meter Performed By: #### 2 [id number] ####[facility] Bysrolvoes[address] AveNorbatavia [place] [address] Glucose [Mass/Vol] 143 mg/dL [address] Comment on above: Result Comment: Lucille ronak Meter Performed By: #### 2 [id number] ####[facility] Wkwqnthyom[address] [place] [address] Capillary Glucose POCon 11-29 Glucose [Mass/Vol] 145 mg/dL [address] Comment on above: Result Comment: Lucille ronak Meter Performed By: #### 2 [id number] ####[facility] [address] [place] [address] Glucose [Mass/Vol] 132 mg/dL [address] Comment on above: Performed By: #### 2 [id number] ####[facility] [address] [place] [address] Glucose [Mass/Vol] 223 mg/dL [address] Comment on above: Performed By: #### 2 [id number] ####[facility] Hzhvowrdgv133 [facility] [place] [address] Glucose [Mass/Vol] 248 mg/dL [address] Comment on above: Result Comment: Lucille ronak Meter Performed By: #### 2 [id number] ####[facility] [address]fqqrbxkt[address] AveNorbatavia [place] [address] Capillary Glucose POCon 11-29 Glucose [Mass/Vol] 292 mg/dL [address] Comment on above: Result Comment: Lucille ronak Meter Performed By: #### 2 [id number] ####[facility] Rlbxtprafm441 [facility] [place] [place] [address] Glucose [Mass/Vol] 115 mg/dL [address] Comment on above: Result Comment: Lucille ronak Meter Performed By: #### 2 [id number] ####[facility] Dcgbajewkc412 [facility] [place] [address] Glucose [Mass/Vol] 207 mg/dL [address] Comment on above: Result Comment: Lucille ronak Meter Performed By: #### 2 [id number] ####[facility] [address] [place] [address] Glucose [Mass/Vol] 159 mg/dL [address] Comment on above: Result Comment: Lucille ronak Meter Performed By: #### 2 [id number] ####[facility] [address] [place] [address] Capillary Glucose POCon 11-29 Glucose [Mass/Vol] 256 mg/dL [address] Comment on above: Result Comment: Lucille ronak Meter Performed By: #### 2 [id number] ####[facility] [address] [place] [address] Glucose [Mass/Vol] 129 mg/dL [address] Comment on above: Result Comment: Lucille ronak Meter Performed By: #### 2 [id number] ####[facility] [address]se[address] [place] [address] Glucose [Mass/Vol] 235 mg/dL [address] Comment on above: Performed By: #### 2 [id number] ####[facility] Mfmavjiuxn[address] [place] [address] Glucose [Mass/Vol] 183 mg/dL [address] Comment on above: Result Comment: Lucille ronak Meter Performed By: #### 2 [id number] ####[facility] Dpnyqclnoq785 [facility] [place] [place] [address] Glucose [Mass/Vol] 178 mg/dL [address] Comment on above: Result Comment: Lucille ronak Meter Performed By: #### 2 [id number] ####[facility] [address] [place] [address] Capillary Glucose POCon 11-29 Glucose [Mass/Vol] 159 mg/dL High - [facility] Comment on above: Result Comment: Lucille ronak Meter Performed By: #### 2 [id number] ####[facility] [address]rt[address] [place] [address] Glucose [Mass/Vol] 149 mg/dL High - [facility] Comment on above: Result Comment: Lucille ronak Meter Performed By: #### 2 [id number] ####[facility] [address]qjfnmx[address] [place] [address] Glucose [Mass/Vol] 217 mg/dL High [address] [place] [address] Comment on above: Result Comment: Lucille ronak Meter Performed By: #### 2 [id number] ####[facility] [address] [place] [address] Glucose [Mass/Vol] 206 mg/dL High [facility] Comment on above: Result Comment: Lucille ronak Meter Performed By: #### 2 [id number] ####[facility] [address]yrf[address] [place] [address] Capillary Glucose POCon 11-29 Glucose [Mass/Vol] 83 mg/dL Normal - [facility] Comment on above: Result Comment: Lucille ronak Meter Performed By: #### 2 [id number] ####[facility] [address]azdael[address] [place] [address] Glucose [Mass/Vol] 215 mg/dL High -[address] [place] [address] Comment on above: Performed By: #### 2 [id number] ####[facility] [address]msyz[address] [place] [address] Glucose [Mass/Vol] 317 mg/dL High [address] [place] [address] Comment on above: Performed By: #### 2 [id number] ####[facility] [address]fkituooo[address] [place] [address] Glucose [Mass/Vol] 166 mg/dL High - [facility] Comment on above: Result Comment: Lucille ronak Meter Performed By: #### 2 [id number] ####[facility] [address]wi[address] [place] [address] Family Medicine Office/Clini c Noteon 12-09-2022 Family Medicine Office/Clinic Note Normal [facility] Comment on above: Result Comment: Elec tronically Signed By: Emely Mccall DO.\.br\Date and Time Signed: 12/09/22 09:50 EDT\.br\Electronically Co-Signed By: Sriram Tesfaye\.br\Date and Time Co-Signed: 12/09/22 01:31 EDT Capillary Glucose POCon 11-29 Glucose [Mass/Vol] 282 mg/dL High [facility] Comment on above: Performed By: #### 2 [id number] ####[facility] Ixyjjrvuvf[address] AveNorbatavia [place] [address] Glucose [Mass/Vol] 175 mg/dL [facility] Comment on above: Performed By: #### 2 [id number] ####[facility] [address]scoserffd[address] [place] [address] Glucose [Mass/Vol] 316 mg/dL High [facility] Comment on above: Performed By: #### 2 [id number] ####[facility] [address] [place] [address] Glucose [Mass/Vol] 262 mg/dL [facility] Comment on above: Result Comment: Lucille ronak Meter Performed By: #### 2 [id number] ####[facility] [address]kricmb[address] [place] [address] Capillary Glucose POCon Glucose [Mass/Vol] 273 mg/dL High [address] Comment on above: Result Comment: Lucille ronak Meter Performed By: #### 2 [id number] ####[facility] Koutybuwfn[address] AveNorbatavia [place] [address] Glucose [Mass/Vol] 150 mg/dL High [facility] Comment on above: Performed By: #### 2 [id number] ####[facility] Wsvlffrvsb087 [facility] [place] [place] [address] Glucose [Mass/Vol] 58 mg/dL Normal -[address] [place] [address] Comment on above: Performed By: #### 2 [id number] ####[facility] Rekcksfovt647 [place] [address] Glucose [Mass/Vol] 256 mg/dL [place] [address] [place] [address] Comment on above: Performed By: #### 2 [id number] ####[facility] [address] [place] [address] Glucose [Mass/Vol] 117 mg/dL [place] [address] [place] [address] Comment on above: Result Comment: Lucille ronak Meter Performed By: #### 2 [id number] ####[facility] [address] [place] [address] Capillary Glucose POCon 0 Glucose [Mass/Vol] 165 mg/dL [place] [address] [place] [address] Comment on above: Result Comment: Lucille ronak Meter Performed By: #### 2 [id number] ####[facility] [address] [place] [address] Glucose [Mass/Vol] 202 mg/dL [address] Comment on above: Result Comment: Lucille ronak Meter Performed By: #### 2 [id number] ####[facility] [address] [place] [address] Glucose [Mass/Vol] 280 mg/dL [place] [address] [place] [address] Comment on above: Result Comment: Lucille ronak Meter Performed By: #### 2 [id number] ####[facility] [address] [place] [address] Glucose [Mass/Vol] 156 mg/dL [address] Comment on above: Result Comment: Lucille ronak Meter Performed By: #### 2 [id number] ####[facility] [address] [place] [address] Capillary Glucose POCon 09-0 Glucose [Mass/Vol] 152 mg/dL High 55-99 [facility] Comment on above: Result Comment: Lucille ronak Meter Performed By: #### 2 [id number] ####[facility] [address]ps[address] [place] [address] Glucose [Mass/Vol] 192 mg/dL High 55-99 [facility] Comment on above: Performed By: #### 2 [id number] ####[facility] Bawtcezjsz[address]Norbatavia [place] [address] Glucose [Mass/Vol] 317 mg/dL High 55-99 [facility] Comment on above: Result Comment: Lucille ronak Meter Performed By: #### 2 [id number] ####[facility] Ycuiwxxybu[address] AveNorbatavia [place] [address] Glucose [Mass/Vol] 185 mg/dL High -[address] [place] [address] Comment on above: Performed By: #### 2 [id number] ####[facility] [address]lprpxst[address] [address] C Urineon 12-04-2022 Bacteria identified Cx Nom (U) Normal [facility] Comment on above: Performed By: #### 1 [id number], [id number] ####[facility] [address]bfyvsyfq[address]Norbatavia [place] [address] Capillary Glucose POCon Glucose [Mass/Vol] 206 mg/dL [place] [address] [place] [address] Comment on above: Result Comment: Lucille ronak Meter Performed By: #### 2 [id number] ####[facility] Uev[address]xfgt[address]Norbatavia [place] [address] Glucose [Mass/Vol] 181 mg/dL High 55-99 [facility] Comment on above: Result Comment: Lucille ronak Meter Performed By: #### 2 [id number] ####[facility] [address]khfb[address]zd[address]Norbatavia [place] [address] Glucose [Mass/Vol] 289 mg/dL High 55-99 [facility] Comment on above: Performed By: #### 2 [id number] ####[facility] [address]essc[address] [place] [address] Glucose [Mass/Vol] 211 mg/dL High 55-99 [facility] Comment on above: Result Comment: Lucille ronak Meter Performed By: #### 2 [id number] ####[facility] [address] [place] [address] Family Medicine Office/Clini c Noteon 12-04-2022 Family Medicine Office/Clinic Note Normal [facility] Comment on above: Result Comment: Elec tronically Signed By: ZAIRA BANKS, Manuel.br\Date and Time Signed: 12/03/22 22:17 EDT Capillary Glucose POCon Glucose [Mass/Vol] 159 mg/dL High 55-99 [facility] Comment on above: Result Comment: Lucille ronak Meter Performed By: #### 2 [id number] ####[facility] [address] [place] [address] Glucose [Mass/Vol] 89 mg/dL Normal 55-99 [facility] Comment on above: Performed By: #### 2 [id number] ####[facility] [address]mp[address]hn[address] [place] [address] Glucose [Mass/Vol] 194 mg/dL High 55-99 [facility] Comment on above: Performed By: #### 2 [id number] ####[facility] [address] [place] [address] Glucose [Mass/Vol] 204 mg/dL High 55-99 [facility] Comment on above: Result Comment: Lucille ronak Meter Performed By: #### 2 [id number] ####[facility] [address] [place] [address] Capillary Glucose POCon Glucose [Mass/Vol] 178 mg/dL High 55-99 [facility] Comment on above: Performed By: #### 2 [id number] ####[facility] [address]mmh[address] [place] [address] Glucose [Mass/Vol] 173 mg/dL High 55-99 [facility] Comment on above: Performed By: #### 2 [id number] ####[facility] [address] [place] [address] Glucose [Mass/Vol] 230 mg/dL High 55-99 [facility] Comment on above: Performed By: #### 2 [id number] ####[facility] [address]ergy[address] [place] [address] Glucose [Mass/Vol] 347 mg/dL High 55-99 [facility] Comment on above: Result Comment: Insu melissa StartedCleaned Meter Performed By: #### 2 [id number] ####[facility] [address] [place] [address] Glucose [Mass/Vol] 265 mg/dL High 55- [facility] Comment on above: Performed By: #### 2 [id number] ####[facility] [address] [place] [address] UA With Cult Reflexon 2022 Bacteria LM Ql (Urine sed) 3+ /HPF Abnormal Trace [facility] Comment on above: Performed By: #### 1 [id number], [id number] ####[facility] [address] [place] [address] Bilirubin Ql (U) Negative Normal Negative [facility] Comment on above: Performed By: #### 1 [id number], [id number] ####[address] [address] Clarity (U) CLOUDY Abnormal Clear [facility] Comment on above: Performed By: #### 1 [id number], [id number] ####[facility] [address] [place] [address] Color (U) YELLOW Normal Yellow [facility] Comment on above: Performed By: #### 1 [id number], [id number] ####[address] [address] Epithelial cells.squamous LM.HPF (Urine sed) [#/Area] 0-2 Normal 0-2 [facility] Comment on above: Performed By: #### 1 [id number], [id number] ####[facility] [address] [place] [address] Glucose Test strip (U) [Mass/Vol] Negative Normal Negative [facility] Comment on above: Performed By: #### 1 [id number], [id number] ####[facility] [address] [place] [address] Hemoglobin Ql (U) 1+ Abnormal Negative [facility] Comment on above: Performed By: #### 1 [id number], [id number] ####[address] [address] Ketones (U) [Mass/Vol] Negative Normal Negative [facility] Comment on above: Performed By: #### 1 [id number], 2009930 ####[address] [address] [place].plasma/[place]. RBC (Bld) [Mass ratio] 0-3 Normal 0-3 [facility] Comment on above: Performed By: #### 1 [id number], [id number] ####[facility] [address] [place] [address] Mucus Ql (Urine sed) TRACE Normal [facility] Comment on above: Performed By: #### 1 [id number], 7290278 ####[address] [address] Nitrite Ql (U) Negative Normal Negative [facility] Comment on above: Performed By: #### 1 7936538, 2977302 ####[address] [address] pH (U) 5.5 [pH] Invalid Interpretation Code 5.0-9.0 [facility] Comment on above: Performed By: #### 1 [id number], [id number] ####[address] [address] Protein (U) [Mass/Vol] 1+ Abnormal Negative [facility] Comment on above: Performed By: #### 1 [id number], [id number] ####[facility] [address] [place] [address] Specific gravity (U) [Rel density] 1.025 Invalid Interpretation Code 1.005-1.030 [facility] Comment on above: Performed By: #### 1 [id number], [id number] ####[address] [address] Type of Urine collection method Clean Catch Normal [facility] Comment on above: Performed By: #### 1 4677043, 8476126 ####[facility] [address] [place] [address] Urobilinogen Qn (U) 2.0 {Papa'U}/dL Abnormal 0.0-1.0 [facility] Comment on above: Performed By: #### 1 5063461, 6210647 ####[address] [address] WBC Auto Ql (U) 3+ Abnormal Negative [facility] Comment on above: Performed By: #### 1 7026633, 8517988 ####[facility] [address] [place] [address] WBC LM.HPF (Urine sed) [#/Area] /[HPF] Abnormal 0-5 [facility] Comment on above: Performed By: #### 1 5219162, 1922212 ####[facility] [address] [place] [address] Capillary Glucose POCon 09-0 Glucose [Mass/Vol] 196 mg/dL [facility] [address] [place] [address] Comment on above: Performed By: #### 2 [id number] ####[facility] [address] [place] [address] Glucose [Mass/Vol] 313 mg/dL [facility] [address] [place] [address] Comment on above: Performed By: #### 2 [id number] ####[facility] [address] [place] [address] Glucose [Mass/Vol] 243 mg/dL [facility] 5599 [facility] Comment on above: Result Comment: Lucille ronak Meter Performed By: #### 2 [id number] ####[facility] [address] [place] [address] Capillary Glucose POCon Glucose [Mass/Vol] 181 mg/dL High 55-99 [facility] Comment on above: Result Comment: Lucille ronak Meter Performed By: #### 2 [id number] ####[facility] [address] AveNorbatavia [place] [address] Glucose [Mass/Vol] 244 mg/dL High 55-99 [facility] Comment on above: Result Comment: Lucille ronak Meter Performed By: #### 2 [id number] ####[facility] [address] [place] [address] Glucose [Mass/Vol] 177 mg/dL High 55-99 [facility] Comment on above: Performed By: #### 2 [id number] ####[facility] [address] AveNorbatavia [place] [address] Glucose [Mass/Vol] 272 mg/dL High 55-99 [facility] Comment on above: Result Comment: Lucille ronak Meter Performed By: #### 2 [id number] ####[facility] [address] AveNorbatavia [place] [address] Glucose [Mass/Vol] 219 mg/dL High 55-99 [facility] Comment on above: Performed By: #### 2 [id number] ####[facility] [address] [place] [address] CHEMISTRYOrdered By: Lab ROP User on 11-29-2022 Glucose [Mass/Vol] 209 mg/dL High 55 - 99 mg/dL [facility] C POC Subsection Comment on above: Result Comment: Fausto rubi RN/ POC Device SN [id number] Invalid Interpretation Code FT POC Subsection POC User ID [id number] Invalid Interpretation Code [facility] POC Subsection POC Username STEPHANIE JANE Invalid Interpretation Code [facility] POC Subsection Glucose [Mass/Vol] 147 mg/dL High 55 - 99 mg/dL [facility] C POC Subsection Comment on above: Result Comment: Fausto rubi RN/ POC Device SN [id number] Invalid Interpretation Code [facility] POC Subsection POC User ID [id number] Invalid Interpretation Code [facility] POC Subsection POC Username STEPHANIE JANE Invalid Interpretation Code [facility] POC Subsection Capillary Glucose POCon Glucose [Mass/Vol] 189 mg/dL High 55-99 [facility] Comment on above: Performed By: #### 2 [id number] ####[facility] [address] [place] [address] Glucose [Mass/Vol] 209 mg/dL High 55-99 [facility] Comment on above: Result Comment: Fausto rubi RN/ Performed By: #### 2 [id number] ####[facility] [address] [place] [address] Glucose [Mass/Vol] 147 mg/dL High 55-99 [facility] Comment on above: Result Comment: Fausto rubi RN/ Performed By: #### 2 [id number] ####[facility] [address] [place] [address] Discharge Instructionson Discharge Instructions [id number]#1.00CD:127 Normal [facility] Discharge Note-Nursingon Discharge Note-Nursing [facility] Insurance Correspondence Off iceon 11-29-2022 Insurance Correspondence Office [id number]#1.00CD:127 Normal [facility] Interdisciplinary Note - Hardeep e Manageron 11-29-2022 Interdisciplinary Note - Systems Software Manager [facility] Comment on above: Result Comment: Elec tronically Signed By: Radha Prabhakar\.br\Date and Time Signed: 11/29/22 11:10 EDT Interdisciplinary Note - Systems Software Manager [facility] Comment on above: Result Comment: Elec tronically Signed By: Radha Prabhakar\.br\Date and Time Signed: 11/29/22 10:44 EDT Medication Listson Medication Lists [id number]#1.00CD:127 Normal [facility] Message from Medicareon 09 Message from Medicare [id number]#1.00CD:127 Normal [facility] Monitor Recordon 11-29-2022 Monitor Record [id number]#1.00CD:127 Normal [facility] Monitor Record [id number]#1.00CD:127 Normal [facility] Monitor Record [id number]#1.00CD:127 Normal [facility] Progress Note-Physicianon Progress Note-Physician Normal [facility] Comment on above: Result Comment: Elec tronically Signed By: FALLON BANKS, Soni\.br\Date and Time Signed: 11/29/22 09:02 EDT Transfer Documentson 023 Transfer Documents [id number]#1.00CD:127 Normal [facility] Auto Diffon 11-28-2022 Basophils/100 WBC (Bld) 0.2 % Normal 0.0-2.0 [facility] Comment on above: Order Comment: Order Added by Discern Expert. Performed By: #### 1 4045021, 7158447, 7936812, 6211942, 1092975, 9707786 ####[facility] [address] [place] [address] Basophils/Leukocytes Auto (Bld) [Pure # fraction] 0.0 E9/L Normal 0.0-0.2 [facility] Comment on above: Order Comment: Order Added by Discern Expert. Performed By: #### 1 6411636, 6043802, 0591605, 5491072, 3915300, 5241079 ####[facility] [address] [place] [address] Eosinophils/100 WBC (Bld) 5.7 % Normal 0.0-8.0 [facility] Comment on above: Order Comment: Order Added by Discern Expert. Performed By: #### 1 4347296, 1257294, 7540912, 8556126, 0936029, 2172136 ####[address] [address] Eosinophils/Leukocytes Auto (Bld) [Pure # fraction] 0.5 E9/L Normal 0.0-0.5 [facility] Comment on above: Order Comment: Order Added by Discern Expert. Performed By: #### 1 2127968, 9867982, 8216892, 8367116, 6949057, 8343366 ####[address] [address] Lymphocytes/100 WBC (Bld) 17.0 % Normal 14.0-50.0 [facility] Comment on above: Order Comment: Order Added by Katherine Expert. Performed By: #### 1 0156446, 1071358, 7978906, 9433328, 7661255, 2709254 ####[address] [address] Lymphocytes/Leukocytes Auto (Bld) [Pure # fraction] 1.5 E9/L Normal 1.0-4.0 [facility] Comment on above: Order Comment: Order Added by Katherine Expert. Performed By: #### 1 3503657, 7931439, 2147666, 3292146, 0418675, 2967685 ####[address] [address] Monocytes/100 WBC (Bld) 11.7 % Normal 4.0-14.0 [facility] Comment on above: Order Comment: Order Added by Katherine Expert. Performed By: #### 1 5844377, 3205586, 5784294, 9962276, 5254786, 7639423 ####[address] [address] Monocytes/Leukocytes Auto (Bld) [Pure # fraction] 1.1 E9/L High 0.2-1.0 [facility] Comment on above: Order Comment: Order Added by Katherine Expert. Performed By: #### 1 0448270, 8163494, 3480580, 3983399, 6086566, 6126532 ####[facility] [address] [place] [address] Neutrophils/100 WBC (Bld) 65.4 % Normal 36.0-75.0 [facility] Comment on above: Order Comment: Order Added by Discern Expert. Performed By: #### 1 1963823, 1406056, 3647589, 0221408, 9416984, 7828168 ####[facility] [address] [place] [address] Neutrophils/Leukocytes Auto (Bld) [Pure # fraction] 5.9 E9/L Normal 2.0-7.5 [facility] Comment on above: Order Comment: Order Added by Discern Expert. Performed By: #### 1 3077509, 1152572, 9725731, 9662544, 8115301, 9692606 ####[address] [address] BUNon 11-28-2022 Urea nitrogen [Mass/Vol] 13 mg/dL Normal 5-21 [facility] Comment on above: Performed By: #### 1 8483626, 8275287, 7064429, 0324541, 3510674, 8613103 ####[address] [address] CBC w/ Auto Diffon Erythrocyte distribution width (RBC) [Ratio] 13.2 % Normal 10.9-14.2 [facility] Comment on above: Performed By: #### 1 2706269, 1302013, 2696501, 5542247, 0110050, 2138988 ####[address] [place] [address] Hematocrit (Bld) [Volume fraction] 24.5 % Low 34.0-46.0 [facility] Comment on above: Performed By: #### 1 6965230, 1163032, 8522383, 9171807, 3694537, 7657220 ####[facility] [address] [place] [address] Hemoglobin (Bld) [Mass/Vol] 8.6 g/dL Low 12.0-16.0 [facility] Comment on above: Performed By: #### 1 8234130, 5455776, 2420313, 3654708, 3272779, 1157799 ####[facility] [address] [place] [address] MCH (RBC) [Entitic mass] 31.1 pg Normal 27.0-34.0 [facility] Comment on above: Performed By: #### 1 7072521, 0903935, 7972656, 0815768, 9846816, 1753501 ####[facility] [address] [place] [address] MCHC (RBC) [Mass/Vol] 35.0 g/dL Normal 31.4-36.0 [facility] Comment on above: Performed By: #### 1 5403861, 5295765, 2089138, 0128509, 2432984, 7185665 ####[address] [address] MCV (RBC) [Entitic vol] 89.1 fL Normal 80.0-100.0 [facility] Comment on above: Performed By: #### 1 1505312, 8485839, 6802326, 5601765, 4524126, 2838257 ####[address] [address] Platelet mean volume (Bld) [Entitic vol] 9.0 fL Normal 6.4-10.8 [facility] Comment on above: Performed By: #### 1 0612184, 9787736, 2394394, 1438809, 7233437, 9663714 ####[address] [place] [address] Platelets (Bld) [#/Vol] 158.0 E9/L Normal 150.0-500.0 [facility] Comment on above: Performed By: #### 1 3492821, 2993067, 5990403, 5581156, 9102877, 6409332 ####[facility] [address] [place] [address] RBC (Bld) [#/Vol] 2.8 E12/L Low 4.3-5.9 [facility] Comment on above: Performed By: #### 1 3838222, 5569696, 8443646, 1974065, 8449530, 4727028 ####[facility] [address] [place] [address] WBC corrected for nucl RBC Auto (Bld) [#/Vol] 9.1 E9/L Normal 4.0-11.0 [facility] Comment on above: Performed By: #### 1 3795378, 1377943, 9862977, 3897241, 5939333, 7689223 ####[facility] [address] [place] [address] CHEMISTRYOrdered By: Lab ROP User on 11-28-2022 Glucose [Mass/Vol] 141 mg/dL High 55 - 99 mg/dL [facility] C POC Subsection Comment on above: Result Comment: Fausto rubi RN/ POC Device SN [id number] Invalid Interpretation Code [facility] POC Subsection POC User ID [id number] Invalid Interpretation Code [facility] POC Subsection POC Username JOANNA AG Invalid Interpretation Code [facility] POC Subsection CHEMISTRYOrdered By: SYSTEM SYSTEM on 11-28-2022 Anion gap [Moles/Vol] 7 mmol/L Normal 6 - 16 mEq/L [facility] Remisol Chloride [Moles/Vol] 112 mmol/L High 101 - 1 11 mmol/L [facility] Remisol CO2 [Moles/Vol] 25 mmol/L Normal 21 - 31 mmol/L [facility] Remisol Creatinine [Mass/Vol] 0.9 mg/dL Normal 0.5 - 1.3 mg/dL [facility] Remisol GFR/1.73 sq M.predicted among non-blacks MDRD (S/P/Bld) [Vol rate/Area] 70 mL/min/1.73 m2 Normal >=59mL/min/1.7 3 m2 [facility] Chem S Potassium [Moles/Vol] 3.6 mmol/L Normal 3.5 - 5.3 mmol/L [facility] Remisol Sodium [Moles/Vol] 140 mmol/L Normal 135 - 145 mmol/L [facility] Remisol Urea nitrogen [Mass/Vol] 13 mg/dL Normal 5 - 21 mg/dL [facility] Remisol Capillary Glucose POCon 10-31 Glucose [Mass/Vol] 141 mg/dL High 55-99 [facility] Comment on above: Result Comment: Fausto CHAUDHARY Performed By: #### 2 [id number] ####[facility] [address] [place] [address] Glucose [Mass/Vol] 118 mg/dL High 55-99 [facility] Comment on above: Result Comment: Fausto CHAUDHARY Performed By: #### 2 19867591 ####[address] [address] Glucose [Mass/Vol] 221 mg/dL High 55-99 [facility] Comment on above: Result Comment: Fausto CHAUDHARY Performed By: #### 2 22538275 ####[address] [place] [address] Glucose [Mass/Vol] 147 mg/dL High 55-99 [facility] Comment on above: Result Comment: Fausto CHAUDHARY Performed By: #### 2 69432555 ####[address] [place] [address] Glucose [Mass/Vol] 169 mg/dL [facility] 55-99 [facility] Comment on above: Result Comment: Fausto CHAUDHARY Performed By: #### 2 49773746 ####[facility] [address] [place] [address] Creatinineon 11-28-2022 Creatinine [Mass/Vol] 0.9 mg/dL Normal 0.5-1.3 [facility] Comment on above: Performed By: #### 1 8532573, 0791706, 6187126, 5326139, 4556312, 6872702 ####[facility] [address] [place] [address] GetWell Education Videoon GetWell Education Video Yes Patient Avoiding Infections in the Hospital Normal [facility] HEMATOLOGYOrdered By: SYSTEM SYSTEM on 11-28-2022 Basophils/100 WBC (Bld) 0.2 % Normal 0.0 - 2.0 % [facility] HemeAutoSS Basophils/Leukocytes Auto (Bld) [Pure # fraction] 0.0 E9/L Normal 0.0 - 0.2 E9/L [facility]Auto[facility] Eosinophils/100 WBC (Bld) 5.7 % Normal 0.0 - 8.0 % [facility]eAuto[facility] Eosinophils/Leukocytes Auto (Bld) [Pure # fraction] 0.5 E9/L Normal 0.0 - 0.5 E9/L [facility] Lymphocytes/100 WBC (Bld) 17.0 % Normal 14.0 - 50.0 % [facility]eAuto[facility] Lymphocytes/Leukocytes Auto (Bld) [Pure # fraction] 1.5 E9/L Normal 1.0 - 4.0 E9/L [facility] Monocytes/100 WBC (Bld) 11.7 % Normal 4.0 - 14.0 % [facility]eAuto[facility] Monocytes/Leukocytes Auto (Bld) [Pure # fraction] 1.1 E9/L High 0.2 - 1.0 E9/L [facility] Neutrophils/100 WBC (Bld) 65.4 % Normal 36.0 - 75.0 % [facility] Neutrophils/Leukocytes Auto (Bld) [Pure # fraction] 5.9 E9/L Normal 2.0 - 7.5 E9/L [facility] HEMATOLOGYOrdered By: David Gasca on 11-28-2022 Erythrocyte distribution width (RBC) [Ratio] 13.2 % Normal 10.9 - 14.2 % [facility] Hematocrit (Bld) [Volume fraction] 24.5 % Low 34.0 - 46.0 % [facility] Hemoglobin (Bld) [Mass/Vol] 8.6 g/dL Low 12.0 - 16.0 gm/dL [facility] MCH (RBC) [Entitic mass] 31.1 pg Normal 27.0 - 34.0 pg [facility] MCHC (RBC) [Mass/Vol] 35.0 g/dL Normal 31.4 - 36.0 gm/dL [facility] MCV (RBC) [Entitic vol] 89.1 fL Normal 80.0 - 100.0 fL [facility] HemeAutoSS Platelet mean volume (Bld) [Entitic vol] 9.0 fL Normal 6.4 - 10.8 fL [facility] HemeAutoSS Platelets (Bld) [#/Vol] 158.0 E9/L Normal 150. 0 - 500.0 E9/L [facility] HemeAutoSS RBC (Bld) [#/Vol] 2.8 E12/L Low 4.3 - 5.9 E12/L [facility] HemeAutoSS WBC corrected for nucl RBC Auto (Bld) [#/Vol] 9.1 E9/L Normal 4.0 - 11.0 E9/L [facility] HemeAutoSS Inpatient Clinical Summaryon 11-28-2022 Inpatient Clinical Summary Normal [facility] Inpatient Patient Summaryon 11-28-2022 Inpatient Patient Summary Normal [facility] IntraOperative Documentson 0 11-28-2022 IntraOperative Documents [id number]#1.00CD:127 Normal [facility] Lyteson 11-28-2022 Anion gap [Moles/Vol] 7 mmol/L Normal 6-16 [facility] Comment on above: Performed By: #### 1 3829395, 1917203, 2648233, 4701927, 9977249, 9300978 ####[facility] [address] [place] [address] Chloride [Moles/Vol] 112 mmol/L High 101-111 [facility] Comment on above: Performed By: #### 1 9977434, 8303651, 7857828, 5697080, 7816355, 0248200 ####[facility] [address] [place] [address] CO2 [Moles/Vol] 25 mmol/L Normal - [facility] Comment on above: Performed By: #### 1 2504149, 9557763, 6393942, 1413245, 5089838, 8381272 ####[facility] [address] [place] [address] Potassium [Moles/Vol] 3.6 mmol/L Normal 3.5-5.3 [facility] Comment on above: Performed By: #### 1 8087208, 8298783, 0295705, 1172568, 7561484, 6795879 ####[facility] [address] [place] [address] Sodium [Moles/Vol] 140 mmol/L Normal 135-145 [facility] Comment on above: Performed By: #### 1 4247657, 5887947, 8081123, 8289666, 0412249, 1372669 ####[facility] [address] [place] [address] Monitor Recordon 11-28-2022 Monitor Record [id number]#1.00CD:127 Normal [facility] Monitor Record [id number]#1.00CD:127 Normal [facility] Monitor Record [id number]#1.00CD:127 Normal [facility] Progress Note-Physicianon Progress Note-Physician Normal F [facility] Comment on above: Result Comment: Elec tronically Signed By: Joaquim Noe DO\.br\Date and Time Signed: 11/28/22 17:17 EDT Progress Note-Physician Normal [facility] Comment on above: Result Comment: Elec tronically Signed By: FALLON BANKS, Soni\.br\Date and Time Signed: 11/28/22 09:37 EDT eGFRon 11-28-2022 GFR/1.73 sq M.predicted among non-blacks MDRD (S/P/Bld) [Vol rate/Area] 70 mL/min/1.73 m2 Normal >=59 [facility] Comment on above: Order Comment: Order added by Discern Expert. Result Comment: Diabetes Territory Manager marquez kidney disease could be indicated at eGFR's of less than 60 mL/min/1.73m2. Kidney failure is indicated at less than 15 mL/min/1.73m2. Performed By: #### 1 0504164, 3404657, 3045289, 0491529, 8262621, 3539435 ####[address] [address] Auto Diffon 11-27-2022 Basophils/100 WBC (Bld) 0.2 % Normal 0.0-2.0 [facility] Comment on above: Order Comment: Order Added by Discern Expert. Performed By: #### 2 590904, 8845604 ####[address] [address] Basophils/Leukocytes Auto (Bld) [Pure # fraction] 0.0 E9/L Normal 0.0-0.2 [facility] Comment on above: Order Comment: Order Added by Discern Expert. Performed By: #### 2 257235, 1037912 ####[address] [address] Eosinophils/100 WBC (Bld) 1.8 % Normal 0.0-8.0 [facility] Comment on above: Order Comment: Order Added by Discern Expert. Performed By: #### 2 998986, 5936649 ####[address] [address] Eosinophils/Leukocytes Auto (Bld) [Pure # fraction] 0.2 E9/L Normal 0.0-0.5 [facility] Comment on above: Order Comment: Order Added by Discern Expert. Performed By: #### 2 048860, 4411027 ####[address] [address] Lymphocytes/100 WBC (Bld) 16.0 % Normal 14.0-50.0 [facility] Comment on above: Order Comment: Order Added by Discern Expert. Performed By: #### 2 559860, 0911673 ####[address] [address] Lymphocytes/Leukocytes Auto (Bld) [Pure # fraction] 1.4 E9/L Normal 1.0-4.0 [facility] Comment on above: Order Comment: Order Added by Discern Expert. Performed By: #### 2 898906, 5638738 ####[facility] [address] [place] [address] Monocytes/100 WBC (Bld) 11.9 % Normal 4.0-14.0 F [facility] Comment on above: Order Comment: Order Added by Discern Expert. Performed By: #### 2 005717, 6637373 ####[facility] [address] [place] [address] Monocytes/Leukocytes Auto (Bld) [Pure # fraction] 1.0 E9/L Normal 0.2-1.0 [facility] Comment on above: Order Comment: Order Added by Discern Expert. Performed By: #### 2 090231, 6223241 ####[address] [address] Neutrophils/100 WBC (Bld) 70.1 % Normal 36.0-75.0 [facility] Comment on above: Order Comment: Order Added by Discern Expert. Performed By: #### 2 945342, 4358861 ####[facility] [address] [place] [address] Neutrophils/Leukocytes Auto (Bld) [Pure # fraction] 6.2 E9/L Normal 2.0-7.5 [facility] Comment on above: Order Comment: Order Added by Discern Expert. Performed By: #### 2 454862, 2706395 ####[facility] [address] [place] [address] BMPon 11-27-2022 Anion gap [Moles/Vol] 7 mmol/L Normal 6-16 [facility] Comment on above: Performed By: #### 1 7958613, 6970539 ####[facility] [address] [place] [address] Calcium [Mass/Vol] 8.1 mg/dL Low 8.9-11.1 [facility] Comment on above: Performed By: #### 1 6980284, 5795134 ####[facility] [address] [place] [address] Chloride [Moles/Vol] 114 mmol/L High 101-111 [facility] Comment on above: Performed By: #### 1 4485491, 1618811 ####[facility] [address] [place] [address] CO2 [Moles/Vol] 23 mmol/L Normal 21-31 [facility] Comment on above: Performed By: #### 1 9041624, 6244647 ####[facility] [address] [place] [address] Creatinine [Mass/Vol] 1.0 mg/dL Normal 0.5-1.3 [facility] Comment on above: Performed By: #### 1 3596242, 0564797 ####[facility] [address] [facility] [place] [address] Glucose [Mass/Vol] 255 mg/dL High 55-199 [facility] Comment on above: Result Comment: If t his glucose result represents a fasting glucose, interpretation should refer to the following reference range: 55-99 mg/dL Performed By: #### 1 4006729, 4881302 ####[facility] [address] [place] [address] Potassium [Moles/Vol] 3.8 mmol/L Normal 3.5-5.3 [facility] Comment on above: Performed By: #### 1 3912933, 4171563 ####[facility] [address] [facility] [place] [place] [address] Sodium [Moles/Vol] 140 mmol/L Normal 135-145 [facility] Comment on above: Performed By: #### 1 9238869, 5786730 ####[facility] [address] [place] [address] Urea nitrogen [Mass/Vol] 19 mg/dL Normal 5-21 [facility] Comment on above: Performed By: #### 1 8973337, 0691573 ####[facility] [address]Norbat[address] [place] [address] Urea nitrogen/Creatinine [Mass ratio] 19 No Units Normal 10-20 [facility] Comment on above: Performed By: #### 1 1700094, 5060249 ####[address] [place] [address] CBC w/ Auto Diffon Erythrocyte distribution width (RBC) [Ratio] 13.3 % Normal 10.9-14.2 [facility] Comment on above: Performed By: #### 2 936443, 8291162 ####[address] [address] Hematocrit (Bld) [Volume fraction] 22.7 % Low 34.0-46.0 [facility] Comment on above: Performed By: #### 2 336347, 7053336 ####[address] [address] Hemoglobin (Bld) [Mass/Vol] 7.8 g/dL Low 12.0-16.0 [facility] [facility] Comment on above: Performed By: #### 2 806480, 1125075 ####[address] [address] MCH (RBC) [Entitic mass] 30.6 pg Normal 27.0-34.0 [facility] Comment on above: Performed By: #### 2 123413, 1560975 ####[address] [address] MCHC (RBC) [Mass/Vol] 34.5 g/dL Normal 31.4-36.0 [facility] Comment on above: Performed By: #### 2 527837, 8835947 ####[address] [address] MCV (RBC) [Entitic vol] 88.6 fL Normal 80.0-100.0 F [facility] Comment on above: Performed By: #### 2 087823, 9261098 ####[address] [address] Platelet mean volume (Bld) [Entitic vol] 9.3 fL Normal 6.4-10.8 [facility] Comment on above: Performed By: #### 2 803961, 4338814 ####[facility] [address] [place] [address] Platelets (Bld) [#/Vol] 133.0 E9/L Low 150.0-500.0 [facility] Comment on above: Performed By: #### 2 424706, 0381153 ####[facility] [address] [place] [address] RBC (Bld) [#/Vol] 2.6 E12/L Low 4.3-5.9 [facility] Comment on above: Performed By: #### 2 339105, 7180648 ####[facility] [address] [place] [address] WBC corrected for nucl RBC Auto (Bld) [#/Vol] 8.8 E9/L Normal 4.0-11.0 [facility] Comment on above: Performed By: #### 2 389175, 3104438 ####[facility] [address] [place] [address] CHEMISTRYOrdered By: SYSTEM SYSTEM on 11-27-2022 Anion gap [Moles/Vol] 7 mmol/L Normal 6 - 16 mEq/L F C Remisol Calcium [Mass/Vol] 8.1 mg/dL Low 8.9 - 11. 1 mg/dL [facility] Remisol Chloride [Moles/Vol] 114 mmol/L High 101 - 1 11 mmol/L [facility] Remisol CO2 [Moles/Vol] 23 mmol/L Normal 21 - 31 mmol/L [facility] Remisol Creatinine [Mass/Vol] 1.0 mg/dL Normal 0.5 - 1.3 mg/dL [facility] Remisol GFR/1.73 sq M.predicted among non-blacks MDRD (S/P/Bld) [Vol rate/Area] 61 mL/min/1.73 m2 Normal >=59mL/min/1.7 3 m2 [facility] Chem S Glucose [Mass/Vol] 255 mg/dL High 55 - 199 mg/dL FT Remisol Potassium [Moles/Vol] 3.8 mmol/L Normal 3.5 - 5.3 mmol/L [facility] Remisol Sodium [Moles/Vol] 140 mmol/L Normal 135 - 145 mmol/L [facility] Remisol Urea nitrogen [Mass/Vol] 19 mg/dL Normal 5 - 21 mg/dL [facility] Remisol Urea nitrogen/Creatinine [Mass ratio] 19 mg/mg Normal 10 - 20 [facility] Remisol Capillary Glucose POCon 10-31 Glucose [Mass/Vol] 104 mg/dL High 55-99 [facility] Comment on above: Result Comment: No C overage Given Performed By: #### 2 [id number] ####[facility] [address] [place] [address] Glucose [Mass/Vol] 166 mg/dL High 55-99 [facility] Comment on above: Result Comment: Insu melissa Started Performed By: #### 2 [id number] ####[facility] [address] [place] [address] Glucose [Mass/Vol] 110 mg/dL High 55-99 [facility] Comment on above: Result Comment: No C overage Given Performed By: #### 2 [id number] ####[facility] [address] [place] [address] HEMATOLOGYOrdered By: SYSTEM SYSTEM on 11-27-2022 Basophils/100 WBC (Bld) 0.2 % Normal 0.0 - 2.0 % [facility] Basophils/Leukocytes Auto (Bld) [Pure # fraction] 0.0 E9/L Normal 0.0 - 0.2 E9/L [facility] Eosinophils/100 WBC (Bld) 1.8 % Normal 0.0 - 8.0 % [facility] Eosinophils/Leukocytes Auto (Bld) [Pure # fraction] 0.2 E9/L Normal 0.0 - 0.5 E9/L [facility] Lymphocytes/100 WBC (Bld) 16.0 % Normal 14.0 - 50.0 % [facility] Lymphocytes/Leukocytes Auto (Bld) [Pure # fraction] 1.4 E9/L Normal 1.0 - 4.0 E9/L [facility] Monocytes/100 WBC (Bld) 11.9 % Normal 4.0 - 14.0 % [facility] Monocytes/Leukocytes Auto (Bld) [Pure # fraction] 1.0 E9/L Normal 0.2 - 1.0 E9/L [facility] Neutrophils/100 WBC (Bld) 70.1 % Normal 36.0 - 75.0 % [facility] Neutrophils/Leukocytes Auto (Bld) [Pure # fraction] 6.2 E9/L Normal 2.0 - 7.5 E9/L [facility] HEMATOLOGYOrdered By: Sheila Carter on 11-27-2022 Erythrocyte distribution width (RBC) [Ratio] 13.3 % Normal 10.9 - 14.2 % [facility] Hematocrit (Bld) [Volume fraction] 22.7 % Low 34.0 - 46.0 % [facility] Hemoglobin (Bld) [Mass/Vol] 7.8 g/dL Low 12.0 - 16.0 gm/dL [facility] MCH (RBC) [Entitic mass] 30.6 pg Normal 27.0 - 34.0 pg [facility] MCHC (RBC) [Mass/Vol] 34.5 g/dL Normal 31.4 - 36.0 gm/dL [facility] MCV (RBC) [Entitic vol] 88.6 fL Normal 80.0 - 100.0 fL [facility] Platelet mean volume (Bld) [Entitic vol] 9.3 fL Normal 6.4 - 10.8 fL [facility] Platelets (Bld) [#/Vol] 133.0 E9/L Low 150. 0 - 500.0 E9/L [facility] RBC (Bld) [#/Vol] 2.6 E12/L Low 4.3 - 5.9 E12/L [facility] WBC corrected for nucl RBC Auto (Bld) [#/Vol] 8.8 E9/L Normal 4.0 - 11.0 E9/L [facility] Monitor Recordon 11-27-2022 Monitor Record [id number]:127 Normal [facility] Monitor Record [id number]#[id number]:127 Normal [facility] Monitor Record [id number]:127 Normal [facility] Progress Note-Physicianon Progress Note-Physician Normal [facility] Comment on above: Result Comment: Elec tronically Signed By: Joaquim Noe DO\.br\Date and Time Signed: 11/27/22 20:04 EDT Progress Note-Physician Normal F [facility] Comment on above: Result Comment: Elec tronically Signed By: Soni PADGETT MD\.br\Date and Time Signed: 11/27/22 09:12 EDT eGFRon 11-27-2022 GFR/1.73 sq M.predicted among non-blacks MDRD (S/P/Bld) [Vol rate/Area] 61 mL/min/1.73 m2 Normal >=59 [facility] Comment on above: Order Comment: Order added by Discern Expert. Result Comment: Diabetes Territory Manager marquez kidney disease could be indicated at eGFR's of less than 60 mL/min/1.73m2. Kidney failure is indicated at less than 15 mL/min/1.73m2. Performed By: #### 1 [id number], 8433291 ####[facility] [address] [place] [address] Auto Diffon 11-26-2022 Basophils/100 WBC (Bld) 0.1 % Normal 0.0-2.0 [facility] Comment on above: Order Comment: Order Added by Discern Expert. Performed By: #### 2 767151, 8155926 ####[facility] [address] [place] [address] Basophils/Leukocytes Auto (Bld) [Pure # fraction] 0.0 E9/L Normal 0.0-0.2 [facility] Comment on above: Order Comment: Order Added by Discern Expert. Performed By: #### 2 584816, 4861694 ####[facility] [address] [place] [address] Eosinophils/100 WBC (Bld) 0.0 % Normal 0.0-8.0 [facility] Comment on above: Order Comment: Order Added by Discern Expert. Performed By: #### 2 398871, 3899471 ####[facility] [address] [place] [address] Eosinophils/Leukocytes Auto (Bld) [Pure # fraction] 0.0 E9/L Normal 0.0-0.5 [facility] Comment on above: Order Comment: Order Added by Discern Expert. Performed By: #### 2 231766, 8872434 ####[address] [address] Lymphocytes/100 WBC (Bld) 4.8 % Low 14.0-50.0 [facility] Comment on above: Order Comment: Order Added by Discern Expert. Performed By: #### 2 816013, 2637648 ####[address] [address] Lymphocytes/Leukocytes Auto (Bld) [Pure # fraction] 0.4 E9/L Low 1.0-4.0 [facility] Comment on above: Order Comment: Order Added by Discern Expert. Performed By: #### 2 225725, 5159724 ####[address] [address] Monocytes/100 WBC (Bld) 6.9 % Normal 4.0-14.0 [facility] Comment on above: Order Comment: Order Added by Discern Expert. Performed By: #### 2 471780, 2737399 ####[address] [address] Monocytes/Leukocytes Auto (Bld) [Pure # fraction] 0.5 E9/L Normal 0.2-1.0 [facility] Comment on above: Order Comment: Order Added by Discern Expert. Performed By: #### 2 189364, 3291675 ####[address] [address] Neutrophils/100 WBC (Bld) 88.2 % High 36.0-75.0 [facility] Comment on above: Order Comment: Order Added by Discern Expert. Performed By: #### 2 939358, 9582616 ####[address] [place] [address] Neutrophils/Leukocytes Auto (Bld) [Pure # fraction] 6.6 E9/L Normal 2.0-7.5 [facility] Comment on above: Order Comment: Order Added by Discern Expert. Performed By: #### 2 211783, 2413549 ####[facility] [address] [place] [address] BMPon 11-26-2022 Anion gap [Moles/Vol] 7 mmol/L Normal 6-16 [facility] Comment on above: Performed By: #### 1 9990253, 6498428 ####[address] [address] Calcium [Mass/Vol] 7.9 mg/dL Low 8.9-11.1 [facility] Comment on above: Performed By: #### 1 8993160, 8128726 ####[address] [address] Chloride [Moles/Vol] 108 mmol/L Normal 101-111 [facility] Comment on above: Performed By: #### 1 5942163, 1835308 ####[address] [address] CO2 [Moles/Vol] 22 mmol/L Normal 21-31 [facility] Comment on above: Performed By: #### 1 9777701, 8116327 ####[facility] [address] [place] [address] Creatinine [Mass/Vol] 1.3 mg/dL Normal 0.5-1.3 [facility] Comment on above: Performed By: #### 1 1703808, 4049904 ####[facility] [address] [place] [address] Glucose [Mass/Vol] 353 mg/dL High 55-199 [facility] Comment on above: Result Comment: If t his glucose result represents a fasting glucose, interpretation should refer to the following reference range: 55-99 mg/dL Performed By: #### 1 4986290, 6221090 ####[address] [place] [address] Potassium [Moles/Vol] 4.1 mmol/L Normal 3.5-5.3 [facility] Comment on above: Performed By: #### 1 3880223, 9737760 ####[facility] [address] [place] [address] Sodium [Moles/Vol] 133 mmol/L Low 135-145 [facility] Comment on above: Performed By: #### 1 7154543, 4320023 ####[facility] [address] [place] [address] Urea nitrogen [Mass/Vol] 21 mg/dL Normal 5-21 [facility] Comment on above: Performed By: #### 1 7905200, 3041109 ####[facility] [address] [place] [address] Urea nitrogen/Creatinine [Mass ratio] 16 No Units Normal 10-20 [facility] Comment on above: Performed By: #### 1 2691081, 6830024 ####[facility] [address] [place] [address] CBC w/ Auto Diffon 3 Erythrocyte distribution width (RBC) [Ratio] 12.7 % Normal 10.9-14.2 [facility] Comment on above: Performed By: #### 2 620970, 3830377 ####[facility] [address] [place] [address] Hematocrit (Bld) [Volume fraction] 22.2 % Low 34.0-46.0 [facility] Comment on above: Performed By: #### 2 999881, 6940270 ####[facility] [address] [place] [address] Hemoglobin (Bld) [Mass/Vol] 7.6 g/dL Low 12.0-16.0 [facility] Comment on above: Performed By: #### 2 377369, 3736195 ####[facility] [address] [place] [address] MCH (RBC) [Entitic mass] 30.0 pg Normal 27.0-34.0 [facility] Comment on above: Performed By: #### 2 002724, 8231847 ####[address] [address] MCHC (RBC) [Mass/Vol] 34.1 g/dL Normal 31.4-36.0 [facility] Comment on above: Performed By: #### 2 518364, 8098663 ####[place] [address]457 MCV (RBC) [Entitic vol] 88.1 fL Normal 80.0-100.0 [facility] Comment on above: Performed By: #### 2 993330, 3183871 ####[address] [address] Platelet mean volume (Bld) [Entitic vol] 8.9 fL Normal 6.4-10.8 [facility] Comment on above: Performed By: #### 2 315511, 2825409 ####[address] [address] Platelets (Bld) [#/Vol] 121.0 E9/L Low 150.0-500.0 [facility] Comment on above: Performed By: #### 2 478624, 6159186 ####[address] [address] RBC (Bld) [#/Vol] 2.5 E12/L Low 4.3-5.9 [facility] Comment on above: Performed By: #### 2 315523, 9237890 ####[address] [address] WBC corrected for nucl RBC Auto (Bld) [#/Vol] 7.5 E9/L Normal 4.0-11.0 [facility] Comment on above: Performed By: #### 2 918553, 8859649 ####[address] [address] CHEMISTRYOrdered By: SYSTEM SYSTEM on 11-26-2022 Anion gap [Moles/Vol] 7 mmol/L Normal 6 - 16 mEq/L [facility] Remisol Calcium [Mass/Vol] 7.9 mg/dL Low 8.9 - 11. 1 mg/dL [facility] Remisol Chloride [Moles/Vol] 108 mmol/L Normal 101 - 1 11 mmol/L [facility] Remisol CO2 [Moles/Vol] 22 mmol/L Normal 21 - 31 mmol/L [facility] Remisol Creatinine [Mass/Vol] 1.3 mg/dL Normal 0.5 - 1.3 mg/dL [facility] Remisol GFR/1.73 sq M.predicted among non-blacks MDRD (S/P/Bld) [Vol rate/Area] 45 mL/min/1.73 m2 Low >=59mL/min/1.7 3 m2 [facility] Chem S Glucose [Mass/Vol] 353 mg/dL High 55 - 199 mg/dL [facility] Remisol Potassium [Moles/Vol] 4.1 mmol/L Normal 3.5 - 5.3 mmol/L [facility] Remisol Sodium [Moles/Vol] 133 mmol/L Low 135 - 145 mmol/L [facility] Remisol Urea nitrogen [Mass/Vol] 21 mg/dL Normal 5 - 21 mg/dL [facility] Remisol Urea nitrogen/Creatinine [Mass ratio] 16 mg/mg Normal 10 - 20 [facility] Remisol Capillary Glucose POCon 10-30 Glucose [Mass/Vol] 184 mg/dL High 55-99 [facility] Comment on above: Result Comment: Fausto CHAUDHARY Performed By: #### 2 [id number] ####[facility] [address] [place] [address] Glucose [Mass/Vol] 231 mg/dL High 55-99 [facility] Comment on above: Performed By: #### 2 52724495 ####[facility] [address] [place] [address] Glucose [Mass/Vol] 248 mg/dL High 55-99 [facility] Comment on above: Result Comment: Fausto CHAUDHARY Performed By: #### 2 [id number] ####[facility] [address] [place] [address] Glucose [Mass/Vol] 299 mg/dL High 55-99 [facility] Comment on above: Result Comment: Fausto rubi RN/ Performed By: #### 2 [id number] ####[facility] [address] [place] [address] Glucose [Mass/Vol] 411 mg/dL High 55-99 [facility] Comment on above: Result Comment: Fausto rubi RN/ Performed By: #### 2 24656873 ####[facility] [address] [place] [address] Glucose [Mass/Vol] 409 mg/dL High 55-99 [facility] Comment on above: Result Comment: Fausto rubi RN/ Performed By: #### 2 [id number] ####[facility] [address] [place] [address] Consent for Anesthesiaon Consent for Anesthesia [id number]#[id number]:127 Normal [facility] HEMATOLOGYOrdered By: Chrissy Bradford on 11-26-2022 Hematocrit (Bld) [Volume fraction] 23.2 % Low 34.0 - 46.0 % [facility] Hemoglobin (Bld) [Mass/Vol] 8.0 g/dL Low 12.0 - 16.0 gm/dL [facility] HEMATOLOGYOrdered By: SYSTEM SYSTEM on 11-26-2022 Basophils/100 WBC (Bld) 0.1 % Normal 0.0 - 2.0 % [facility] Basophils/Leukocytes Auto (Bld) [Pure # fraction] 0.0 E9/L Normal 0.0 - 0.2 E9/L [facility] Eosinophils/100 WBC (Bld) 0.0 % Normal 0.0 - 8.0 % [facility] Eosinophils/Leukocytes Auto (Bld) [Pure # fraction] 0.0 E9/L Normal 0.0 - 0.5 E9/L [facility] Lymphocytes/100 WBC (Bld) 4.8 % Low 14.0 - 50.0 % [facility] Lymphocytes/Leukocytes Auto (Bld) [Pure # fraction] 0.4 E9/L Low 1.0 - 4.0 E9/L [facility] Monocytes/100 WBC (Bld) 6.9 % Normal 4.0 - 14.0 % [facility] Monocytes/Leukocytes Auto (Bld) [Pure # fraction] 0.5 E9/L Normal 0.2 - 1.0 E9/L [facility] Neutrophils/100 WBC (Bld) 88.2 % High 36.0 - 75.0 % [facility] Neutrophils/Leukocytes Auto (Bld) [Pure # fraction] 6.6 E9/L Normal 2.0 - 7.5 E9/L [facility] HEMATOLOGYOrdered By: David Gasca on 11-26-2022 Erythrocyte distribution width (RBC) [Ratio] 12.7 % Normal 10.9 - 14.2 % [facility] MCH (RBC) [Entitic mass] 30.0 pg Normal 27.0 - 34.0 pg [facility] MCHC (RBC) [Mass/Vol] 34.1 g/dL Normal 31.4 - 36.0 gm/dL [facility] MCV (RBC) [Entitic vol] 88.1 fL Normal 80.0 - 100.0 fL [facility] Platelet mean volume (Bld) [Entitic vol] 8.9 fL Normal 6.4 - 10.8 fL [facility] Platelets (Bld) [#/Vol] 121.0 E9/L Low 150. 0 - 500.0 E9/L [facility] RBC (Bld) [#/Vol] 2.5 E12/L Low 4.3 - 5.9 E12/L [facility] WBC corrected for nucl RBC Auto (Bld) [#/Vol] 7.5 E9/L Normal 4.0 - 11.0 E9/L [facility] Hct & Hgbon 11-26-2022 Hematocrit (Bld) [Volume fraction] 23.2 % Low 34.0-46.0 [facility] Comment on above: Performed By: #### 1 [id number] ####[facility] [address] [place] [address] Hemoglobin (Bld) [Mass/Vol] 8.0 g/dL Low 12.0-16.0 [facility] Comment on above: Performed By: #### 1 3008340 ####[facility] [address] [place] [address] Insurance Correspondence Off iceon 11-26-2022 Insurance Correspondence Office [id number]#1.00CD:127 Normal [facility] Interdisciplinary Note - Hardeep e Manageron 11-26-2022 Interdisciplinary Note - Systems Software Manager Normal [facility] Comment on above: Result Comment: Elec tronically Signed By: Radha Prabhakar\.br\Date and Time Signed: 11/26/22 11:36 EDT Interdisciplinary Note - Timo n 11-26-2022 Interdisciplinary Note - OT Normal [facility] Interdisciplinary Note - PTo n 11-26-2022 Interdisciplinary Note - PT Normal [facility] IntraOperative Documentson 0 11-26-2022 IntraOperative Documents [id number]#[id number]:127 Normal [facility] Progress Note-Physicianon Progress Note-Physician Normal [facility] Comment on above: Result Comment: Elec tronically Signed By: MD Martinez Ahmad F\.br\Date and Time Signed: 11/26/22 15:06 EDT Progress Note-Physician Normal [facility] Comment on above: Result Comment: Elec tronically Signed By: MD Martinez Ahmad F\.br\Date and Time Signed: 11/26/22 15:03 EDT Progress Note-Physician Normal [facility] Comment on above: Result Comment: Elec tronically Signed By: Anu MANZANO\.br\Date and Time Signed: 11/26/22 11:10 EDT\.br\Electronically Co-Signed By: Nesha SHANKAR MD\.br\Date and Time Co-Signed: 11/26/22 11:41 EDT RCOon 11-26-2022 # of Units 1 Invalid Interpretation Code [facility] Comment on above: Result Comment: 11/26 10:54 [id number] product ready and called to FaridaN MARVIN at 11/26/2022 10:54:18 EDT by AG. Performed By: #### 1 [id number] ####[place] [address] [place] [address] Date Required 20221126 Invalid Interpretation Code [facility] Comment on above: Performed By: #### 1 [id number] ####[facility] [address] [place] [id number] Order to Transfuse Yes Normal [facility] Comment on above: Performed By: #### 1 1016844 ####[place] [address] [place] [id number] Product Type None Required Invalid Interpretation Code [facility] Comment on above: Performed By: #### 1 8057706 ####[place] [address] [place] [address] eGFRon 11-26-2022 GFR/1.73 sq M.predicted among non-blacks MDRD (S/P/Bld) [Vol rate/Area] 45 mL/min/1.73 m2 Low >=59 [facility] Comment on above: Order Comment: Order added by Discern Expert. Result Comment: Diabetes Territory Manager marquez kidney disease could be indicated at eGFR's of less than 60 mL/min/1.73m2. Kidney failure is indicated at less than 15 mL/min/1.73m2. Performed By: #### 1 8966383, 5737868 ####[address] [address] Auto Diffon 11-25-2022 Basophils/100 WBC (Bld) 0.4 % Normal 0.0-2.0 [facility] Comment on above: Order Comment: Order Added by Discern Expert. Performed By: #### 2 274505, 0020023, 70709871, 1391676, 0485949, 3782537, 9342931 ####[facility] [address] [place] [address] Basophils/Leukocytes Auto (Bld) [Pure # fraction] 0.0 E9/L Normal 0.0-0.2 [facility] Comment on above: Order Comment: Order Added by Discern Expert. Performed By: #### 2 702649, 0415171, 88228626, 1567453, 1999262, 5894599, 2687475 ####[facility] [address] [place] [address] Eosinophils/100 WBC (Bld) 4.1 % Normal 0.0-8.0 [facility] Comment on above: Order Comment: Order Added by Discern Expert. Performed By: #### 2 413901, 6674480, 10510899, 1552232, 6940878, 3454567, 4540722 ####[place] [address] [place] [address] Eosinophils/Leukocytes Auto (Bld) [Pure # fraction] 0.2 E9/L Normal 0.0-0.5 [facility] Comment on above: Order Comment: Order Added by Katherine Expert. Performed By: #### 2 990534, 8693959, 62754822, 7443199, 3420877, 0197423, 8769474 ####[place] [address] [place] [address] Lymphocytes/100 WBC (Bld) 28.6 % Normal 14.0-50.0 [facility] Comment on above: Order Comment: Order Added by Katherine Expert. Performed By: #### 2 566827, 5988691, 45453772, 9498708, 6448525, 7417280, 0598792 ####[facility] [address] [place] [address] Lymphocytes/Leukocytes Auto (Bld) [Pure # fraction] 1.4 E9/L Normal 1.0-4.0 [facility] Comment on above: Order Comment: Order Added by Katherine Expert. Performed By: #### 2 025465, 0463611, 99862502, 9007991, 0440793, 2111259, 8280586 ####[facility] [address] [place] [address] Monocytes/100 WBC (Bld) 13.8 % Normal 4.0-14.0 [facility] Comment on above: Order Comment: Order Added by Discern Expert. Performed By: #### 2 720663, 3354647, 48051937, 7523221, 3060276, 0400544, 9300100 ####[facility] [address] [place] [address] Monocytes/Leukocytes Auto (Bld) [Pure # fraction] 0.7 E9/L Normal 0.2-1.0 [facility] Comment on above: Order Comment: Order Added by Discern Expert. Performed By: #### 2 154152, 2215437, 59807077, 7180749, 3804213, 8668440, 2847327 ####[facility] [address] [place] [address] Neutrophils/100 WBC (Bld) 53.1 % Normal 36.0-75.0 [facility] Comment on above: Order Comment: Order Added by Katherine Expert. Performed By: #### 2 160189, 0552804, 59557363, 5309960, 3916022, 8992272, 3712858 ####[facility] [address] [place] [address] Neutrophils/Leukocytes Auto (Bld) [Pure # fraction] 2.6 E9/L Normal 2.0-7.5 [facility] Comment on above: Order Comment: Order Added by Katherine Expert. Performed By: #### 2 900966, 3250340, 34949395, 3105370, 2846595, 0728371, 6484071 ####[facility] [address] [place] [address] BMPon 11-25-2022 Anion gap [Moles/Vol] 7 mmol/L Normal 6-16 [facility] Comment on above: Performed By: #### 2 509288, 0608600, 74070970, 2872238, 6458778, 0525194, 4570176 ####[facility] [address] [place] [address] Calcium [Mass/Vol] 8.6 mg/dL Low 8.9-11.1 [facility] Comment on above: Performed By: #### 2 [id number], [id number], [id number], [id number], [id number], [id number], [id number] ####[facility] [address] [place] [address] Chloride [Moles/Vol] 114 mmol/L High 101-111 [facility] Comment on above: Performed By: #### 2 [id number], [id number], [id number], [id number], 5855646, [id number], [id number] ####[facility] [address] [place] [address] CO2 [Moles/Vol] 24 mmol/L Normal 21-31 [facility] Comment on above: Performed By: #### 2 [id number], [id number], [id number], 1845347, 5477483, 1927339, [id number] ####[facility] [address] [place] [address] Creatinine [Mass/Vol] 1.0 mg/dL Normal 0.5-1.3 [facility] Comment on above: Performed By: #### 2 907297, 2960332, 68124549, 2283000, 0931540, 8308352, 4469839 ####[facility] [address] [place] [address] Glucose [Mass/Vol] 98 mg/dL Normal 55-199 [facility] Comment on above: Result Comment: If t his glucose result represents a fasting glucose, interpretation should refer to the following reference range: 55-99 mg/dL Performed By: #### 2 864889, 9870519, 61496400, 5580214, 1770732, 1976466, 0851148 ####[facility] [address] [place] [address] Potassium [Moles/Vol] 4.0 mmol/L Normal 3.5-5.3 [facility] Comment on above: Performed By: #### 2 820388, 8559607, 90824822, 1682054, 4781512, 9380941, 5706377 ####[facility] [address] [place] [address] Sodium [Moles/Vol] 141 mmol/L Normal 135-145 [facility] Comment on above: Performed By: #### 2 456244, 3454749, 26095829, 4590871, 8702625, 2727006, 2832513 ####[facility] [address] [place] [address] Urea nitrogen [Mass/Vol] 13 mg/dL Normal 5-21 [facility] Comment on above: Performed By: #### 2 887095, 5033019, 45764817, 9368034, 7994025, 3859819, 8715075 ####[facility] [address] [place] [address] Urea nitrogen/Creatinine [Mass ratio] 13 No Units Normal 10-20 [facility] Comment on above: Performed By: #### 2 536344, 8932342, 79716229, 8294615, 9900686, 7210042, 9907041 ####[facility] [address] [place] [address] CBC w/ Auto Diffon 3 Erythrocyte distribution width (RBC) [Ratio] 13.1 % Normal 10.9-14.2 [facility] Comment on above: Performed By: #### 2 287010, 6756088, 16440175, 2781158, 4830877, 6114396, 1236888 ####[facility] [address] [place] [address] Hematocrit (Bld) [Volume fraction] 28.1 % Low 34.0-46.0 [facility] Comment on above: Performed By: #### 2 862427, 9322756, 29128581, 6340335, 7027788, 5835777, 7703107 ####[facility] [address] [place] [address] Hemoglobin (Bld) [Mass/Vol] 9.6 g/dL Low 12.0-16.0 [facility] Comment on above: Performed By: #### 2 498407, 3083690, 51084845, 8267384, 9484366, 9495374, 7252766 ####[facility] [address] [place] [address] MCH (RBC) [Entitic mass] 30.3 pg Normal 27.0-34.0 [facility] Comment on above: Performed By: #### 2 381674, 5883490, 62318418, 4104620, 6788718, 8551491, 4559337 ####[facility] [address] [place] [address] MCHC (RBC) [Mass/Vol] 34.0 g/dL Normal 31.4-36.0 [facility] Comment on above: Performed By: #### 2 049183, 6228203, 50585794, 0825701, 2394373, 1283050, 8686089 ####[address] [address] MCV (RBC) [Entitic vol] 89.1 fL Normal 80.0-100.0 F [facility] Comment on above: Performed By: #### 2 494363, 6984096, 27839144, 0809449, 8334663, 7495058, 1115177 ####[place] [address] [place] [address] Platelet mean volume (Bld) [Entitic vol] 8.7 fL Normal 6.4-10.8 [facility] Comment on above: Performed By: #### 2 202691, 0183316, 33386263, 0686074, 0631541, 4937998, 4655275 ####[address] [place] [address] Platelets (Bld) [#/Vol] 91.0 E9/L Low 150.0-500.0 [facility] Comment on above: Result Comment: Humera matthews reviewed by 11/25/2022 07:41:07 EDT.Platelet count verified using smear estimate Performed By: #### 2 266471, 9933146, 47745010, 3429975, 4319940, 1614758, 2994792 ####[facility] [address] [place] [address] RBC (Bld) [#/Vol] 3.2 E12/L Low 4.3-5.9 [facility] Comment on above: Performed By: #### 2 148501, 4340915, 12711342, 5178408, 8854400, 7896004, 1494394 ####[facility] [address] [place] [address] WBC corrected for nucl RBC Auto (Bld) [#/Vol] 4.8 E9/L Normal 4.0-11.0 [facility] Comment on above: Performed By: #### 2 610516, 3999147, 23248584, 7272860, 4171355, 3797615, 4321857 ####[place] [address] CBC w/Indiceson 11-25-2022 Erythrocyte distribution width (RBC) [Ratio] 13.0 % Normal 10.9-14.2 [facility] Comment on above: Performed By: #### 2 313521 ####[place] [address] Hematocrit (Bld) [Volume fraction] 28.2 % Low 34.0-46.0 [facility] Comment on above: Performed By: #### 2 843200 ####[address] [address] Hemoglobin (Bld) [Mass/Vol] 9.2 g/dL Low 12.0-16.0 [facility] Comment on above: Performed By: #### 2 995777 ####[address] [address] MCH (RBC) [Entitic mass] 29.5 pg Normal 27.0-34.0 [facility] Comment on above: Performed By: #### 2 778379 ####[place] [address] MCHC (RBC) [Mass/Vol] 32.7 g/dL Normal 31.4-36.0 [facility] Comment on above: Performed By: #### 2 351674 ####[facility] [address] [place] [address] MCV (RBC) [Entitic vol] 90.4 fL Normal 80.0-100.0 [facility] Comment on above: Performed By: #### 2 952864 ####[facility] [address] [place] [address] Platelet mean volume (Bld) [Entitic vol] 9.1 fL Normal 6.4-10.8 [facility] Comment on above: Performed By: #### 2 521279 ####[address] [address] Platelets (Bld) [#/Vol] 128.0 E9/L Low 150.0-500.0 [facility] Comment on above: Performed By: #### 2 382320 ####[address] [address] RBC (Bld) [#/Vol] 3.1 E12/L Low 4.3-5.9 [facility] Comment on above: Performed By: #### 2 334016 ####[address] [address] WBC corrected for nucl RBC Auto (Bld) [#/Vol] 11.7 E9/L High 4.0-11.0 [facility] Comment on above: Performed By: #### 2 952318 ####[facility] [address] [place] [address] CHEMISTRYOrdered By: SYSTEM SYSTEM on 11-25-2022 Calcium [Mass/Vol] 8.6 mg/dL Low 8.9 - 11. 1 mg/dL [facility] Remisol Glucose [Mass/Vol] 98 mg/dL Normal 55 - 199 mg/dL [facility] Iron [Mass/Vol] 42 ug/dL Normal 35 - 153 mcg/dL [facility] Remisol Iron binding capacity [Mass/Vol] 260 ug/dL Normal 250 - 400 mcg/dL [facility] Iron saturation [Mass fraction] 16 % Low 20 - 50 % [facility] Transferrin [Mass/Vol] 186 mg/dL Low 200 - 370 mg/dL [facility] Urea nitrogen/Creatinine [Mass ratio] 13 mg/mg Normal 10 - 20 [facility] Amphetamines Screen method >1000 ng/mL Ql (U) Negative (11/25/22 3:09 AM) Normal Negative [facility] Barbiturates Screen Ql (U) Negative (11/25/22 3:09 AM) Normal Negative [facility] Benzodiazepines Ql (U) Negative (11/25/22 3:09 AM) Normal Negative [facility] Cocaine Ql (U) Negative (11/25/22 3:09 AM) Normal Negative [facility] Opiates Screen Ql (U) Positive *ABN* (11/25/22 3:09 AM) Invalid Interpretation Code Negative [facility] Phencyclidine Screen method >25 ng/mL Ql (U) Negative (11/25/22 3:09 AM) Normal Negative [facility] Tetrahydrocannabinol Screen method >50 ng/mL Ql (U) Negative (11/25/22 3:09 AM) Normal Negative [facility] Capillary Glucose POCon 10-30 Glucose [Mass/Vol] 127 mg/dL High 55-99 [facility] Comment on above: Result Comment: No C overage Given Performed By: #### 2 39001667 ####[facility] [address] [place] [address] Glucose [Mass/Vol] 88 mg/dL Normal 55-99 [facility] Comment on above: Performed By: #### 2 01957938 ####[facility] [address] [place] [address] Glucose [Mass/Vol] 87 mg/dL Normal 55-99 [facility] Comment on above: Result Comment: Fausto rubi RN/ Performed By: #### 2 58871646 ####[facility] [address] [place] [address] Glucose [Mass/Vol] 98 mg/dL Normal 55-99 [facility] Comment on above: Result Comment: Fausto CHAUDHARY Performed By: #### 2 05818955 ####[facility] [address] [place] [address] Glucose [Mass/Vol] 108 mg/dL High 55-99 [facility] Comment on above: Result Comment: Fausto CHAUDHARY Performed By: #### 2 16078536 ####[facility] [address] [place] [address] Consent for Procedure/Surger yon 11-25-2022 Consent for Procedure/Surgery [id number]:127 Normal [facility] Ferritinon 11-25-2022 Ferritin [Mass/Vol] 51 ng/mL Normal 11-307 [facility] Comment on above: Result Comment: NORM ALS MEN <30 YRS 16-132 ng/mL MEN >30 YRS 8-338 ng/mL WOMEN (PREMEN) 6-104 ng/mL WOMEN (POSTMEN) 12-210 ng/mL Performed By: #### 2 045730, 7809579, 9342942, 1836985, 31428018, 16189396, 1389721, 7798499, 3238810 ####[facility] [address] [place] [address] Folateon 11-25-2022 Folate [Mass/Vol] 5.4 ng/mL Low >=6.7 [facility] Comment on above: Performed By: #### 2 294515, 6701846, 1854466, 4356732, 24163459, 98466608, 6754241, 8250775, 9975680 ####[facility] [address] [place] [address] ErjM2fuz 11-25-2022 HbA1c (Bld) [Mass fraction] 6.3 % High <=5.9 [facility] Comment on above: Performed By: #### 2 810037, 7060004, 618581277, 9155995, 26584692, 9525440, 29395047, 7669748, 4454543, 85175901, 1366291 ####[place] [place] [address] Insurance Correspondence Off iceon 11-25-2022 Insurance Correspondence Office [id number]:127 Normal [facility] Interdisciplinary Note - Hardeep e Manageron 11-25-2022 Interdisciplinary Note - Systems Software Manager Normal [facility] Comment on above: Result Comment: Elec tronically Signed By: Radha Prabhakar\.br\Date and Time Signed: 11/25/22 12:03 EDT Ironon 11-25-2022 Iron [Mass/Vol] 42 microgram/dL Normal 35-153 [facility] Comment on above: Order Comment: Iron order added by Discern Rule: [email or web address]_add_iron_trans . Performed By: #### 2 197592, 4078369, 64979935, 7331596, 1285848, 8429687, 5080585 ####[facility] [address] [place] [address] Iron Saturationon 11-25-2022 Iron binding capacity [Mass/Vol] 260 microgram/dL Normal 250-400 [facility] Comment on above: Performed By: #### 2 020592, 2619490, 03081865, 9990691, 9476463, 5462969, 9599891 ####[place] [place] [address] Iron saturation [Mass fraction] 16 % Low 20-50 [facility] Comment on above: Performed By: #### 2 500332, 7234955, 41480515, 8888330, 0666246, 1130271, 5453380 ####[place] [place] [address] Main OR PACU I Recordon 10-30 Main OR PACU I Record Normal [facility] Main OR Preoperative Recordo n 11-25-2022 Main OR Preoperative Record Normal [facility] Message from Medicareon 10-30 Message from Medicare [id number]#[id number]:127 Normal [facility] Monitor Recordon 11-25-2022 Monitor Record [id number]:127 Normal [facility] Monitor Record [id number]#[id number]:127 Normal [facility] Monitor Record [id number]#[id number]:127 Normal [facility] Monitor Record [id number]:127 Normal [facility] Operative Reporton 3 Operative Report Normal [facility] Comment on above: Result Comment: Elec tronically Signed By: Joaquim Noe DO\.br\Date and Time Signed: 11/25/22 17:00 EDT Outpatient Surgery Discharge Instructionon 11-25-2022 Outpatient Surgery Discharge Instruction Normal [facility] Progress Note-Physicianon Progress Note-Physician [facility] Comment on above: Result Comment: Elec tronically Signed By: Anu MANZANO\.br\Date and Time Signed: 11/25/22 14:33 EDT\.br\Electronically Co-Signed By: Nesha SHANKAR MD\.br\Date and Time Co-Signed: 11/25/22 14:49 EDT Transferrinon 11-25-2022 Transferrin [Mass/Vol] 186 mg/dL Low 200-370 [facility] Comment on above: Order Comment: Trans micheline order added by Discern Rule: gl_[facility]_add_iron_trans . Performed By: #### 2 724273, 6460634, 95339975, 2954633, 3485897, 9079293, 0782055 ####[facility] [address] [place] [address] U Drug Screenon 11-25-2022 Opiates Screen Ql (U) Positive Abnormal Negative [facility] Comment on above: Result Comment: Nega tive Cutoff: <300 ng/mL Performed By: #### 2 713472 ####[facility] [address] [place] [address] Amphetamines Screen method >1000 ng/mL Ql (U) Negative Normal Negative [facility] Comment on above: Result Comment: Nega tive Cutoff: <1000 ng/mL Performed By: #### 2 994645 ####[facility] [address] [place] [address] Barbiturates Screen Ql (U) Negative Normal Negative [facility] Comment on above: Result Comment: Nega tive Cutoff: <200 ng/mL Performed By: #### 2 159753 ####[facility] [address] [place] [address] Benzodiazepines Ql (U) Negative Normal Negative [facility] Comment on above: Result Comment: Nega tive Cutoff: <200 ng/mL Performed By: #### 2 249149 ####[facility] [address] [place] [address] Cocaine Ql (U) Negative Normal Negative [facility] Comment on above: Result Comment: Nega tive Cutoff: <300 ng/mL Performed By: #### 2 854505 ####[facility] [address] [facility] [place] [address] Phencyclidine Screen method >25 ng/mL Ql (U) Negative Normal Negative [facility] Comment on above: Result Comment: Nega tive Cutoff: <25 ng/mLThese drug screen results are to be used for medical (i.e., treatment) purposes only. Unconfirmed drug screening results must not be used for non-medical purposes (e.g., employment testing, legal testing). Performed By: #### 2 037523 ####[facility] [address] [place] [address] Tetrahydrocannabinol Screen method >50 ng/mL Ql (U) Negative Normal Negative [facility] Comment on above: Result Comment: Nega tive Cutoff: <50 ng/mL Performed By: #### 2 588342 ####[facility] [address] [place] [address] UA With Cult Reflexon 2022 Bilirubin Ql (U) Negative Normal Negative [facility] Comment on above: Performed By: #### 1 9536609 ####[facility] [address] [place] [address] Clarity (U) CLEAR Normal Clear [facility] Comment on above: Performed By: #### 1 6612932 ####[address] [address] Color (U) YELLOW Normal Yellow [facility] Comment on above: Performed By: #### 1 0898977 ####[address] [address] Epithelial cells.squamous LM.HPF (Urine sed) [#/Area] 0-2 Normal 0-2 [facility] Comment on above: Performed By: #### 1 8924510 ####[facility] [address] [place] [address] Glucose Test strip (U) [Mass/Vol] Negative Normal Negative [facility] Comment on above: Performed By: #### 1 6922566 ####[facility] [address] [place] [address] Hemoglobin Ql (U) Negative Normal Negative [facility] Comment on above: Performed By: #### 1 0966121 ####[facility] [address] [place] [address] Ketones (U) [Mass/Vol] Negative Normal Negative [facility] Comment on above: Performed By: #### 1 0222876 ####[facility] [address] [place] [address] [place].plasma/[place]. RBC (Bld) [Mass ratio] 0-3 Normal 0-3 [facility] Comment on above: Performed By: #### 1 4733958 ####[facility] [address] [place] [address] Nitrite Ql (U) Negative Normal Negative [facility] Comment on above: Performed By: #### 1 4168123 ####[facility] [address] [place] [address] pH (U) 6.0 [pH] Invalid Interpretation Code 5.0-9.0 [facility] Comment on above: Performed By: #### 1 4263765 ####[facility] [address] [place] [address] Protein (U) [Mass/Vol] Negative Normal Negative [facility] Comment on above: Performed By: #### 1 4376874 ####[place] [address] [place] [address] Specific gravity (U) [Rel density] 1.010 Invalid Interpretation Code 1.005-1.030 [facility] Comment on above: Performed By: #### 1 7417354 ####[address] [address] Type of Urine collection method Clean Catch Normal [facility] Comment on above: Performed By: #### 1 3058648 ####[facility] [address] [place] [address] Urobilinogen Qn (U) 0.2 {Papa'U}/dL Normal 0.0-1.0 [facility] Comment on above: Performed By: #### 1 7460810 ####[facility] [address] [place] [address] WBC Auto Ql (U) TRACE Abnormal Negative [facility] Comment on above: Performed By: #### 1 8837022 ####[facility] [address] [place] [address] WBC LM.HPF (Urine sed) [#/Area] 0-5 Normal 0-5 [facility] Comment on above: Performed By: #### 1 7664597 ####[address] [address] URINALYSISOrdered By: David Gasca on 11-25-2022 Bilirubin Ql (U) Negative (11/25/22 3:09 AM) Normal Negative [facility] UA Auto SS Clarity (U) Clear (11/25/22 3:09 AM) Normal Clear [facility] UA Auto SS Color (U) Yellow (11/25/22 3:09 AM) Normal Yellow [facility] UA Auto SS Epithelial cells.squamous LM.HPF (Urine sed) [#/Area] 0-2 /HPF Normal 0-2/HPF [facility] UA Aut o SS Glucose Test strip (U) [Mass/Vol] Negative (11/25/22 3:09 AM) Normal Negative [facility] UA Auto SS Hemoglobin Ql (U) Negative (11/25/22 3:09 AM) Normal Negative [facility] UA Auto SS Ketones (U) [Mass/Vol] Negative (11/25/22 3:09 AM) Normal Negative [facility] UA Auto SS [place].plasma/[place]. RBC (Bld) [Mass ratio] 0-3 /HPF Normal 0-3/HPF [facility] UA A uto SS Nitrite Ql (U) Negative (11/25/22 3:09 AM) Normal Negative [facility] UA Auto SS pH (U) 6.0 *NA* (11/25/22 3:09 AM) Invalid Interpretation Code 5.0 - 9.0 [facility] UA Auto SS Protein (U) [Mass/Vol] Negative (11/25/22 3:09 AM) Normal Negative [facility] UA Auto SS Specific gravity (U) [Rel density] 1.010 *NA* (11/25/22 3:09 AM) Invalid Interpretation Code 1.005 - 1.030 [facility] UA Auto SS UA Spec Desc Clean Catch (11/25/22 3:09 AM) Normal [facility] UA Auto SS Urobilinogen Qn (U) 0.5127744 {Papa'U}/dL Normal 0.0 - 1.0 EU/dL [facility] UA Auto SS WBC Auto Ql (U) Trace *ABN* (11/25/22 3:09 AM) Invalid Interpretation Code Negative [facility] UA Auto SS WBC LM.HPF (Urine sed) [#/Area] 0-5 /HPF Normal 0-5/HPF [facility] UA Auto SS Vit B12on 11-25-2022 Cobalamin (Vitamin B12) [Mass/Vol] 212 pg/mL Normal 50-1500 [facility] Comment on above: Performed By: #### 2 316332, 6332911, 9162745, 2050738, 46678759, 87468223, 8827161, 9645489, 0514076 ####[address] [place] [address] XR Hip 1 View Right + Pelvis on 11-25-2022 XR Hip 1 View Right + Pelvis Normal [facility] eGFRon 11-25-2022 GFR/1.73 sq M.predicted among non-blacks MDRD (S/P/Bld) [Vol rate/Area] 61 mL/min/1.73 m2 Normal >=59 [facility] Comment on above: Order Comment: Order added by Discern Expert. Result Comment: Diabetes Territory Manager marquez kidney disease could be indicated at eGFR's of less than 60 mL/min/1.73m2. Kidney failure is indicated at less than 15 mL/min/1.73m2. Performed By: #### 2 184997, 0404985, 29900017, 6309103, 6620720, 8656417, 4798872 ####[place] [address] [place] [address] ABO/Rhon 11-24-2022 ABO/Rh Positive Invalid Interpretation Code [facility] Comment on above: Performed By: #### 1 7288040, 59752391, 7815497, 91310731 ####[place] [address] [place] [address] ABO/Rh History Checkon 11-24 ABO/Rh History Check Verified Hx Blood Type Normal [facility] Comment on above: Performed By: #### 1 3606233, 54508115, 5501465, 63216041 ####[facility] [address] [place] [address] ABSCon 11-24-2022 ABSC Gel Interp Negative Normal [facility] Comment on above: Performed By: #### 1 5084536, 04616985, 0655493, 76615150 ####[facility] [address] [place] [address] Auto Diffon 11-24-2022 Basophils/100 WBC (Bld) 0.3 % Normal 0.0-2.0 F [facility] Comment on above: Order Comment: Order Added by Discern Expert. Performed By: #### 2 031517, 7743191, 941709227, 5049299, 72703167, 6947496, 89008079, 8063724, 7581636, 21295688, 1966985 ####[facility] [address] [place] [address] Basophils/Leukocytes Auto (Bld) [Pure # fraction] 0.0 E9/L Normal 0.0-0.2 [facility] Comment on above: Order Comment: Order Added by Discern Expert. Performed By: #### 2 839032, 3919798, 325685874, 7121984, 07414956, 1588991, 00874205, 9344356, 3070157, 13099383, 5802260 ####[place] [place] [address] Eosinophils/100 WBC (Bld) 3.2 % Normal 0.0-8.0 [facility] Comment on above: Order Comment: Order Added by Discern Expert. Performed By: #### 2 502129, 3537147, 258533767, 1659600, 71750288, 8374846, 19918538, 3645811, 5857489, 99543313, 3771086 ####[place] [place] [address] Eosinophils/Leukocytes Auto (Bld) [Pure # fraction] 0.2 E9/L Normal 0.0-0.5 [facility] Comment on above: Order Comment: Order Added by Discern Expert. Performed By: #### 2 233596, 2847715, 001898615, 6305179, 87823059, 1469231, 03147415, 1538949, 3839558, 79623564, 2277326 ####[facility] [address] [place] [address] Lymphocytes/100 WBC (Bld) 27.3 % Normal 14.0-50.0 [facility] Comment on above: Order Comment: Order Added by Discern Expert. Performed By: #### 2 779213, 2260761, 060006721, 1074891, 12593608, 2732727, 92773655, 1751432, 2791916, 30860575, 1821339 ####[facility] [address] [place] [address] Lymphocytes/Leukocytes Auto (Bld) [Pure # fraction] 1.7 E9/L Normal 1.0-4.0 [facility] Comment on above: Order Comment: Order Added by Discern Expert. Performed By: #### 2 599033, 9249334, 153184176, 6583875, 35240464, 4138958, 65548980, 8394755, 3733547, 83021404, 5194256 ####[place] [place] [address] Monocytes/100 WBC (Bld) 12.1 % Normal 4.0-14.0 [facility] Comment on above: Order Comment: Order Added by Discern Expert. Performed By: #### 2 803557, 8621114, 567252078, 8802566, 77361062, 5849227, 16399640, 3345674, 5503161, 81826385, 2989066 ####[address] [address] [place] [address] Monocytes/Leukocytes Auto (Bld) [Pure # fraction] 0.8 E9/L Normal 0.2-1.0 [facility] Comment on above: Order Comment: Order Added by Discern Expert. Performed By: #### 2 862074, 3538317, 299823628, 9827402, 43666345, 5439809, 06731315, 1631775, 1809456, 82621894, 4410545 ####[facility] [address] [place] [address] Neutrophils/100 WBC (Bld) 57.1 % Normal 36.0-75.0 [facility] Comment on above: Order Comment: Order Added by Discern Expert. Performed By: #### 2 702394, 2592919, 969483909, 7000390, 60651807, 9342334, 30395065, 5750373, 3012695, 83851021, 6491089 ####[facility] [address] [place] [address] Neutrophils/Leukocytes Auto (Bld) [Pure # fraction] 3.7 E9/L Normal 2.0-7.5 [facility] Comment on above: Order Comment: Order Added by Discern Expert. Performed By: #### 2 101145, 4760695, 273131221, 5920851, 01380596, 4014626, 72728805, 5571570, 2128612, 85747417, 2340520 ####[address] [place] [address] BLOOD BANKOrdered By: David Gasca on 11-24-2022 ABO/Rh Interp Positive Invalid Interpretation Code [facility] BB Subsection ABSC Gel Interp Negative (11/24/22 12:57 AM) Normal [facility] BB Subsection BMPon 11-24-2022 Creatinine [Mass/Vol] 1.1 mg/dL Normal 0.5-1.3 [facility] Comment on above: Performed By: #### 2 346269, 5671091, 867030238, 4971285, 39987212, 5154940, 08047849, 5352412, 3731348, 06086351, 4185539 ####[facility] [address] [place] [address] Urea nitrogen [Mass/Vol] 13 mg/dL Normal 5-21 [facility] Comment on above: Performed By: #### 2 479183, 9969507, 203567453, 9191231, 27674597, 7049788, 58397227, 3111593, 7022481, 50884515, 8596177 ####[facility] [address] [place] [address] Urea nitrogen/Creatinine [Mass ratio] 12 No Units Normal 10-20 [facility] Comment on above: Performed By: #### 2 350527, 1038853, 461107543, 5322151, 73454283, 6998296, 00986965, 1136793, 5472475, 29132529, 1271397 ####[facility] [address] [place] [address] Anion gap [Moles/Vol] 9 mmol/L Normal 6-16 [facility] Comment on above: Performed By: #### 2 909106, 5171870, 249022684, 2976493, 07635227, 9451172, 71677471, 9438520, 4797070, 40865004, 9810326 ####[facility] [address] [place] [address] Calcium [Mass/Vol] 9.1 mg/dL Normal 8.9-11.1 [facility] Comment on above: Performed By: #### 2 479605, 4783525, 773203011, 6637139, 16447309, 2977408, 46789172, 9239414, 3044363, 72352823, 6101294 ####[facility] [address] [place] [address] Chloride [Moles/Vol] 111 mmol/L Normal 101-111 [facility] Comment on above: Performed By: #### 2 414642, 9956577, 825700805, 2618299, 60926777, 4224497, 50718360, 3681419, 8457743, 55913059, 7819591 ####[facility] [address] [place] [address] CO2 [Moles/Vol] 24 mmol/L Normal 21-31 [facility] Comment on above: Performed By: #### 2 230279, 7373980, 554352205, 5566396, 26151617, 9535026, 69238285, 7273679, 6452276, 83044469, 8670549 ####[facility] [address] [place] [address] Glucose [Mass/Vol] 183 mg/dL Normal 55-199 [facility] Comment on above: Result Comment: If t his glucose result represents a fasting glucose, interpretation should refer to the following reference range: 55-99 mg/dL Performed By: #### 2 136399, 3788664, 664930024, 5076560, 87815563, 5248508, 42490524, 2553240, 8815880, 33664388, 5527575 ####[facility] [address] [place] [address] Potassium [Moles/Vol] 3.7 mmol/L Normal 3.5-5.3 [facility] Comment on above: Performed By: #### 2 305285, 4125089, 759487949, 5073163, 77282911, 5663395, 90801107, 6641493, 4392014, 32188487, 4842157 ####[address] [place] [address] Sodium [Moles/Vol] 140 mmol/L Normal 135-145 [facility] Comment on above: Performed By: #### 2 291223, 3641798, 481757781, 4333176, 97648711, 3201291, 03786969, 7752160, 6185539, 00992600, 4034279 ####[address] [address] Blood Bank ID#on 11-24-2022 BBID# [id number] Invalid Interpretation Code [facility] Comment on above: Performed By: #### 1 1141065, 08247262, 4673731, 36915708 ####[address] [place] [address] CBC w/ Auto Diffon 3 Erythrocyte distribution width (RBC) [Ratio] 13.4 % Normal 10.9-14.2 [facility] Comment on above: Performed By: #### 2 271586, 1311797, 599013246, 9148470, 25809289, 4733290, 87145708, 1388221, 3087257, 17499630, 0667984 ####[address] [place] [address] Hematocrit (Bld) [Volume fraction] 32.8 % Low 34.0-46.0 [facility] Comment on above: Performed By: #### 2 385830, 7823282, 078909777, 2280705, 95095911, 0882134, 56229858, 0187866, 3496628, 18910796, 2453355 ####[facility] [address] [place] [address] Hemoglobin (Bld) [Mass/Vol] 10.7 g/dL Low 12.0-16.0 [facility] Comment on above: Performed By: #### 2 678769, 2627466, 104716900, 2057973, 64871510, 1254559, 37702711, 9621228, 8090354, 78021849, 0584201 ####[facility] [address] [place] [address] MCH (RBC) [Entitic mass] 29.2 pg Normal 27.0-34.0 [facility] Comment on above: Performed By: #### 2 719834, 9032764, 576418114, 2711319, 46394117, 0026740, 46313920, 8909608, 7638051, 02072296, 3466059 ####[facility] [address] [place] [address] MCHC (RBC) [Mass/Vol] 32.7 g/dL Normal 31.4-36.0 [facility] Comment on above: Performed By: #### 2 582578, 0291930, 987038647, 0005835, 43594574, 0965221, 67092092, 8798896, 2533952, 75341248, 7252463 ####[facility] [address] [place] [address] MCV (RBC) [Entitic vol] 89.2 fL Normal 80.0-100.0 [facility] Comment on above: Performed By: #### 2 964529, 7940784, 232197759, 3783588, 79926507, 7881462, 68526081, 5734323, 1578886, 25645042, 9421228 ####[facility] [address] [place] [address] Platelet mean volume (Bld) [Entitic vol] 8.8 fL Normal 6.4-10.8 [facility] Comment on above: Performed By: #### 2 521698, 4706192, 839265185, 8518619, 19531617, 5931595, 39484894, 0053189, 7661560, 84747653, 2773892 ####[facility] [address] [place] [address] Platelets (Bld) [#/Vol] 139.0 E9/L Low 150.0-500.0 [facility] Comment on above: Performed By: #### 2 903610, 1343306, 210160636, 4679958, 66462823, 5948304, 08577089, 0611254, 3564906, 88169275, 3280880 ####[facility] [address] [place] [address] RBC (Bld) [#/Vol] 3.7 E12/L Low 4.3-5.9 [facility] Comment on above: Performed By: #### 2 561235, 0890349, 520430646, 2454627, 75047959, 0305483, 15917550, 9601977, 0432361, 04250739, 3271083 ####[facility] [address] [place] [address] WBC corrected for nucl RBC Auto (Bld) [#/Vol] 6.4 E9/L Normal 4.0-11.0 [facility] Comment on above: Performed By: #### 2 777781, 8173431, 980534605, 3929941, 62518504, 2890438, 65957268, 0742014, 5700841, 62602925, 2122824 ####[facility] [address] [place] [address] CHEMISTRYOrdered By: SYSTEM SYSTEM on 11-24-2022 Cobalamin (Vitamin B12) [Mass/Vol] 212 pg/mL Normal 50 - 1500 pg/mL [facility] Remisol Ferritin [Mass/Vol] 51 ng/mL Normal 11 - 307 ng/mL F [facility] Folate [Mass/Vol] 5.4 ng/mL Low >=6.7ng/mL [facility] Re misol Free T4 [Mass/Vol] 1.23 ng/dL Normal 0.58 - 1. 64 ng/dL [facility]isol Iron [Mass/Vol] 29 ug/dL Low 35 - 153 mcg/dL [facility] Iron binding capacity [Mass/Vol] 313 ug/dL Normal 250 - 400 mcg/dL [facility] LDH [Catalytic activity/Vol] 158 [iU]/d Normal 93 - 218 Int._Unit/L [facility] Transferrin [Mass/Vol] 224 mg/dL Normal 200 - 370 mg/dL [facility] TSH Qn 0.25 m[IU]/L Low 0.34 - 5.60 mcIU/mL [facility] Albumin [Mass/Vol] 3.6 g/dL Normal 3.3 - 5.0 gm/dL [facility] Albumin/Globulin [Mass ratio] 1.1 {ratio} Normal 1.1 - 2.2 [facility] ALP [Catalytic activity/Vol] 61 [iU]/d Normal 21 - 98 Int._Unit/L [facility] ALT No additional P-5'-P [Catalytic activity/Vol] 15 [iU]/d Normal 6 - 46 Int._Unit/L [facility] AST [Catalytic activity/Vol] 19 [iU]/d Normal 5 - 43 Int._Unit/L [facility] Bilirubin [Mass/Vol] 0.6 mg/dL Normal 0.0 - 1 .1 mg/dL [facility] Bilirubin.direct [Mass/Vol] 0.1 mg/dL Normal 0.1 - 0.4 mg/dL [facility] Bilirubin.indirect [Mass or moles/Vol] 0.5 mg/dL Normal 0.1 - 0.9 mg/dL [facility] Ethanol [Mass/Vol] mg/dL Normal <=7mg/dL [facility] R emisol Globulin (S) [Mass/Vol] 3.2 g/dL Normal 1.4 - 4.0 gm/dL [facility] Lactate [Mass/Vol] 1.1 mmol/L Normal 0.5 - 2.2 mmol/L [facility] Lipase [Catalytic activity/Vol] 32 U/L Normal 13 - 58 unit/L [facility] Protein [Mass/Vol] 6.8 g/dL Normal 6.0 - 7.8 gm/dL [facility] Troponin I.cardiac [Mass/Vol] 3.50 pg/mL Low 10.10 - 27.10 pg/mL [facility] TSH Qn 0.51 m[IU]/L Normal 0.34 - 5.60 mcIU/mL [facility] CHEMISTRYOrdered By: Sarthak Stock on 11-24-2022 HbA1c (Bld) [Mass fraction] 6.3 % High <=5.9% [facility] ChemAutoSS COAGULATIONOrdered By: David Gasca on 11-24-2022 aPTT Coag (PPP) [Time] 30.2 s Normal 25.1 - 36.5 second(s) [facility] Auto Coag INR Coag (PPP) [Relative time] 1.0 {INR} Invalid Interpretation Code [facility] Auto Coag PT Coag (PPP) [Time] 11.7 s Normal 9.4 - 1 2.5 second(s) [facility] Auto Coag CT Pelvis w/o Contraston CT Pelvis w/o Contrast Normal [facility] Capillary Glucose POCon 10-30 Glucose [Mass/Vol] 119 mg/dL High 55-99 [facility] Comment on above: Result Comment: Fausto CHAUDHARY Performed By: #### 2 [id number] ####[facility] [address] [place] [address] Glucose [Mass/Vol] 115 mg/dL High 55-99 [facility] Comment on above: Result Comment: Fausto CHAUDHARY Performed By: #### 2 20202724 ####[facility] [address] [place] [address] Glucose [Mass/Vol] 114 mg/dL High 55-99 [facility] Comment on above: Result Comment: Fausto CHAUDHARY Performed By: #### 2 51262769 ####[facility] [address] [place] [address] Consent for Treatmenton 10-30 Consent for Treatment [id number]#1.00CD:127 Normal [facility] Consultation Noteon 11-25-19 Consultation Note Normal [facility] Comment on above: Result Comment: Elec tronically Signed By: Joaquim Noe DO\.br\Date and Time Signed: 11/24/22 17:19 EDT ED Clinical Summaryon 2022 ED Clinical Summary Normal [facility] ED Note-Physicianon 11-25-19 ED Note-Physician Normal [facility] Comment on above: Result Comment: Elec tronically Signed By: Hari Martinez DO\.br\Date and Time Signed: 11/24/22 03:32 EDT ED Patient Education Noteon 11-24-2022 ED Patient Education Note Normal [facility] ED Patient Summaryon 023 ED Patient Summary Normal [facility] ED Traumaon 11-24-2022 ED Trauma [id number]#[id number]:127 Normal [facility] Ethanolon 11-24-2022 Ethanol [Mass/Vol] mg/dL Normal <=7 [facility] Comment on above: Performed By: #### 2 646369 ####[facility] [address] [place] [address] Free T4on 11-24-2022 Free T4 [Mass/Vol] 1.23 ng/dL Normal 0.58-1.64 [facility] Comment on above: Order Comment: Free T4 added by Discern Rule due to a TSH result of <0.34 or >5.60. Performed By: #### 2 088665, 7203313, 4783766, 3732811, 59915519, 53314677, 6011423, 9512689, 0013919 ####[facility] [address] [place] [address] HEMATOLOGYOrdered By: Kirstin King on 11-24-2022 Reticulocytes/100 RBC (Bld) 0.9 % Normal 0.5 - 1.5 % [facility] HemeAutoSS Comment on above: Result Comment: This Reticulocyte Count Has Been Corrected For Anemia [facility]-2022 Albumin [Mass/Vol] 3.6 g/dL Normal 3.3-5.0 [facility] Comment on above: Performed By: #### 2 543983, 8426265, 900898721, 0759132, 72836906, 1016199, 61823070, 0944292, 1906325, 40183732, 3283611 ####[facility] [address] [place] [address] Albumin/Globulin (S) [Mass conc ratio] 1.1 Normal 1.1-2.2 [facility] Comment on above: Performed By: #### 2 797955, 8548036, 220555678, 8755925, 16466746, 7509722, 11291755, 2153282, 1925519, 64705918, 1034358 ####[facility] [address] [place] [address] ALP [Catalytic activity/Vol] 61 Int._Unit/L Normal 21-98 [facility] Comment on above: Performed By: #### 2 194604, 5779447, 682135167, 9755358, 27218409, 1811855, 38585186, 1643777, 0292769, 44592700, 0119828 ####[facility] [address] [place] [address] ALT No additional P-5'-P [Catalytic activity/Vol] 15 Int._Unit/L Normal 6-46 [facility] Comment on above: Performed By: #### 2 805090, 9319983, 458722053, 3340293, 10641726, 8390964, 21079228, 0491633, 1387095, 60061069, 0356655 ####[facility] [address] [place] [address] AST [Catalytic activity/Vol] 19 Int._Unit/L Normal 5-43 [facility] Comment on above: Performed By: #### 2 626526, 1710160, 007760910, 2090805, 54042006, 6989489, 88402515, 5165731, 3638776, 91726186, 9463912 ####[facility] [address] [place] [address] Bilirubin [Mass/Vol] 0.6 mg/dL Normal 0.0-1.1 [facility] Comment on above: Performed By: #### 2 254999, 0309858, 144978823, 5897109, 19562833, 0320677, 75366154, 6022318, 5291636, 78366288, 8198991 ####[facility] [address] [place] [address] Bilirubin.direct [Mass/Vol] 0.1 mg/dL Normal 0.1-0.4 [facility] Comment on above: Performed By: #### 2 709073, 1904961, 952029186, 7599181, 45993995, 7838797, 03446209, 9438764, 0898990, 81142862, 0437952 ####[facility] [address] [place] [address] Bilirubin.indirect [Mass or moles/Vol] 0.5 mg/dL Normal 0.1-0.9 [facility] Comment on above: Performed By: #### 2 626690, 0907211, 291142202, 6846557, 86985274, 0017565, 41734678, 4784125, 4862802, 88413456, 0117060 ####[facility] [address] [place] [address] Globulin (S) [Mass/Vol] 3.2 g/dL Normal 1.4-4.0 F [facility] Comment on above: Performed By: #### 2 609721, 5402790, 138866253, 7113560, 97282436, 9275561, 74717710, 1820099, 5571861, 80222704, 4910564 ####[facility] [address] [place] [address] Protein [Mass/Vol] 6.8 g/dL Normal 6.0-7.8 [facility] Comment on above: Performed By: #### 2 669366, 3466441, 818572370, 9148478, 28238677, 7280322, 31723428, 3744387, 5855607, 63649449, 9209162 ####[facility] [address] [place] [address] Interdisciplinary Note - Hardeep e Manageron 11-24-2022 Interdisciplinary Note - Systems Software Manager Normal [facility] Comment on above: Result Comment: Elec tronically Signed By: Kirstin Meyer.br\Date and Time Signed: 11/24/22 12:23 EDT Ironon 11-24-2022 Iron [Mass/Vol] 29 microgram/dL Low 35-153 [facility] Comment on above: Performed By: #### 2 359755, 3650435, 6202397, 8929787, 65708954, 75650446, 9515879, 2819410, 7985238 ####[facility] [address] [place] [address] LDHon 11-24-2022 LDH [Catalytic activity/Vol] 158 Int._Unit/L Normal 93-218 [facility] Comment on above: Performed By: #### 2 374927, 4434571, 5406119, 0496594, 65457730, 54447266, 6377562, 2811959, 4986330 ####[facility] [address] [place] [address] Lactic Acidon 11-24-2022 Lactate [Mass/Vol] 1.1 mmol/L Normal 0.5-2.2 [facility] Comment on above: Performed By: #### 2 994451, 7553738, 329389309, 0219896, 08385603, 1426299, 36039291, 1249438, 5166235, 11174229, 3258806 ####[facility] [address] [place] [address] Lipase Levelon 11-24-2022 Lipase [Catalytic activity/Vol] 32 U/L Normal 13-58 [facility] Comment on above: Performed By: #### 2 161147, 4877083, 967665720, 0813788, 32943965, 4800540, 22527670, 9971662, 8426857, 17798284, 7535714 ####[facility] [address] [place] [address] Monitor Recordon 11-24-2022 Monitor Record [id number]#1.00CD:127 Normal [facility] Monitor Record [id number]#1.00CD:127 Normal [facility] Monitor Record [id number]#1.00CD:127 Normal [facility] PT & PTTon 11-24-2022 aPTT Coag (PPP) [Time] 30.2 second(s) Normal 25.1-36.5 [facility] Comment on above: Result Comment: Para meter 15 days - 4 weeks 1 - 5 months 6 - 11 months 1 - 5 years 6 - 10 years 11 - 17 years PTT Mean: 35.4 (27.6-45.6) Mean: 33.5 (24.8-40.7) Mean: 32.4 (25.1-40.7) Mean: 31.6 (24.0-39.2) Mean: 31.6 (26.9-38.7) Mean: 31.0 (24.6-38.4) Pediatric Reference ranges were obtained from a study by Constantin Ward et al. prepared from 1437 samples obtained at 7 different centers using the same coagulation reagent and instrumentation as [facility]. Currently there are no coagulation studies available worldwide for children to 14 days, and no normal ranges. Heparin therapeutic range (represented by Anti-Factor Xa activity of 0.2 - 0.4 U/mL) corresponds to PTT of 56.6 - 109.0 sec. Performed By: #### 2 513649, 5009147, 308076577, 1009300, 20071237, 8102175, 44227862, 7009790, 5147979, 97375006, 3357930 ####[facility] [address] [place] [address] INR Coag (PPP) [Relative time] 1.0 {INR} Invalid Interpretation Code [facility] Comment on above: Result Comment: INR results are specifically intended to assess patients stabilized on long-term Anticoagulation therapy suggested INR?s ?Less Intensive Anticoagulation? 2.0 ? 3.0Conventional Range 3.0 ? 4.5 Performed By: #### 2 127573, 6862639, 436822794, 1359095, 96660299, 4987776, 38804771, 8736354, 3674891, 03535493, 8411203 ####[facility] [address] [place] [address] PT Coag (PPP) [Time] 11.7 second(s) Normal 9.4-12.5 [facility] Comment on above: Result Comment: 15 d ays - 4 weeks 1 - 5 months 6 -11 months 1 ? 5 years 6 ? 10 years 11 -17 years Mean: 11.2 (9.5 ? 12.6) Mean: 11.0 (9.7 ? 12.8) Mean: 11.0 (9.8 ? 13.0) Mean: 11.3 (9.9 ? 13.4) Mean: 11.7 (10.0 ? 14.6) Mean: 11.8 (10.0 - 14.1) Pediatric Reference ranges were obtained from a study by Constantin Ward et al. prepared from 1437 samples obtained at 7 different centers using the same coagulation reagent and instrumentation as [facility]. Currently there are no coagulation studies available worldwide for children to 14 days, and no normal ranges. Performed By: #### 2 497717, 9621765, 578611531, 2619545, 31844288, 7600894, 37563211, 0705322, 3947617, 52897283, 0096377 ####[facility] [address] [place] [address] Pre-Arrival Noteon Pre-Arrival Note Normal Alvarenga Kandace [facility] Progress Note-Physicianon Progress Note-Physician Normal F [facility] Comment on above: Result Comment: Elec tronically Signed By: Anu MANZANO\.br\Date and Time Signed: 11/24/22 14:14 EDT\.br\Electronically Co-Signed By: Cordell Grossman DO\.br\Date and Time Co-Signed: 11/24/22 15:36 EDT RAD - Preliminary Cat Scan R eporton 11-24-2022 RAD - Preliminary Cat Scan Report [id number]#1.00CD:127 Normal [facility] Retic Counton 11-24-2022 Reticulocytes/100 RBC (Bld) 0.9 % Normal 0.5-1.5 [facility] Comment on above: Result Comment: This Reticulocyte Count Has Been Corrected For Anemia Performed By: #### 2 082514, 4167048, 4534253, 4412201, 36292445, 18938456, 1381976, 2392752, 2513880 ####[facility] [address] [place] [address] TIBC Calculatedon 11-24-2022 Iron binding capacity [Mass/Vol] 313 microgram/dL Normal 250-400 [facility] Comment on above: Order Comment: Patie nt receiving patient care, will check back later. [id number] 11/24/2022 15:04:45 EDT Performed By: #### 2 751733, 9967356, 2757583, 5346475, 45973514, 41939391, 7032740, 1739287, 5229123 ####[facility] [address] [place] [address] Transferrin [Mass/Vol] 224 mg/dL Normal 200-370 [facility] Comment on above: Order Comment: Patie nt receiving patient care, will check back later. [id number] 11/24/2022 15:04:45 EDT Performed By: #### 2 032360, 2499589, 0761861, 9472837, 72952138, 61291170, 6802238, 8548203, 4794261 ####[facility] [address] [place] [address] TSH With T4fr Reflexon 11-24 TSH Qn 0.25 m[IU]/L Low 0.34-5.60 [facility] Comment on above: Performed By: #### 2 890661, 7647247, 1660813, 4114143, 86767063, 35298222, 7382735, 3494638, 7755963 ####[facility] [address] [place] [address] TSH Qn 0.51 m[IU]/L Normal 0.34-5.60 [facility] Comment on above: Performed By: #### 2 877940, 1357686, 319865963, 5850588, 20024360, 5621287, 30785340, 9139812, 5453504, 82351379, 3128411 ####[facility] [address] [place] [address] Troponinon 11-24-2022 Troponin I.cardiac [Mass/Vol] 3.50 pg/mL Low 10.10-27.10 [facility] Comment on above: Result Comment: The 95% CI (Confidence Interval) PPV (Positive Predictive Value) for myocardial infarction in females is 38 pg/mL, in males 51 pg/mL. The results should be used in conjunction with clinical conditions of myocardial infarction.(Access High Sensitivity Troponin I Instructions For Use, Cecily Buffalo, October 2017) Performed By: #### 2 554646, 3200930, 788852973, 2321931, 94368739, 7425130, 64037447, 8851621, 9907906, 35870567, 0476934 ####[facility] [address] [place] [address] XR Chest Single Viewon 11-24 XR Chest Single View Normal Fish er [facility] XR Hip 1 View Right + Pelvis on 11-24-2022 XR Hip 1 View Right + Pelvis Normal [facility] eGFRon 11-24-2022 GFR/1.73 sq M.predicted among non-blacks MDRD (S/P/Bld) [Vol rate/Area] 55 mL/min/1.73 m2 Low >=59 [facility] Comment on above: Order Comment: Order added by Discern Expert. Result Comment: Diabetes Territory Manager marquez kidney disease could be indicated at eGFR's of less than 60 mL/min/1.73m2. Kidney failure is indicated at less than 15 mL/min/1.73m2. Performed By: #### 2 782703, 6294018, 396330815, 0863278, 70701096, 2921334, 69468601, 1561679, 3784611, 80277173, 3936475 ####[facility] [address] [place] [address] Auto Diffon 10-02-2022 Basophils/100 WBC (Bld) 0.5 % Normal 0.0-2.0 F [facility] Comment on above: Order Comment: Order Added by Discern Expert. Performed By: #### 2 565519, 4324057, 6567195, 7144281, 53564440, 9006050 ####[facility] [address] [place] [address] Basophils/Leukocytes Auto (Bld) [Pure # fraction] 0.0 E9/L Normal 0.0-0.2 [facility] Comment on above: Order Comment: Order Added by Discern Expert. Performed By: #### 2 780613, 5561787, 5260080, 8487936, 26039811, 6511912 ####[facility] [address] [place] [address] Eosinophils/100 WBC (Bld) 1.2 % Normal 0.0-8.0 [facility] Comment on above: Order Comment: Order Added by Discern Expert. Performed By: #### 2 341779, 1835395, 6467860, 3535645, 20272756, 6411283 ####[facility] [address] [place] [address] Eosinophils/Leukocytes Auto (Bld) [Pure # fraction] 0.1 E9/L Normal 0.0-0.5 [facility] Comment on above: Order Comment: Order Added by Discern Expert. Performed By: #### 2 505906, 9812183, 1951904, 3267683, 48052248, 3310569 ####[facility] [address] [place] [address] Lymphocytes/100 WBC (Bld) 19.9 % Normal 14.0-50.0 [facility] Comment on above: Order Comment: Order Added by Discern Expert. Performed By: #### 2 [id number], [id number], [id number], [id number], [id number], [id number] ####[place] [address] [place] [address] Lymphocytes/Leukocytes Auto (Bld) [Pure # fraction] 1.5 E9/L Normal 1.0-4.0 [facility] Comment on above: Order Comment: Order Added by Katherine Expert. Performed By: #### 2 [id number], [id number], [id number], [id number], [id number], [id number] ####[address] [place] [address] Monocytes/100 WBC (Bld) 12.7 % Normal 4.0-14.0 [facility] Comment on above: Order Comment: Order Added by Discern Expert. Performed By: #### 2 [id number], [id number], [id number], [id number], [id number], [id number] ####[address] [place] [address] Monocytes/Leukocytes Auto (Bld) [Pure # fraction] 1.0 E9/L Normal 0.2-1.0 [facility] Comment on above: Order Comment: Order Added by Katherine Expert. Performed By: #### 2 [id number], [id number], [id number], [id number], [id number], [id number] ####[address] [place] [address] Neutrophils/100 WBC (Bld) 65.7 % Normal 36.0-75.0 [facility] Comment on above: Order Comment: Order Added by Discern Expert. Performed By: #### 2 453934, 2554200, 2073856, 7020911, 88529987, 1003979 ####[facility] [address] [place] [address] Neutrophils/Leukocytes Auto (Bld) [Pure # fraction] 5.1 E9/L Normal 2.0-7.5 [facility] Comment on above: Order Comment: Order Added by Discern Expert. Performed By: #### 2 024956, 7901383, 1272858, 3004505, 16133033, 7534331 ####[facility] [address] [place] [address] BMPon 10-02-2022 Creatinine [Mass/Vol] 1.1 mg/dL Normal 0.5-1.3 [facility] Comment on above: Performed By: #### 2 966915, 5755589, 8920009, 2465202, 90490409, 4844262 ####[facility] [address] [place] [address] Urea nitrogen [Mass/Vol] 16 mg/dL Normal 5-21 [facility] Comment on above: Performed By: #### 2 569328, 6892944, 9760461, 3734000, 58356540, 5158861 ####[facility] [address] [place] [address] Urea nitrogen/Creatinine [Mass ratio] 14 No Units Normal 10-20 [facility] Comment on above: Performed By: #### 2 422130, 1255969, 1230498, 8222303, 33856451, 5633606 ####[facility] [address] [place] [address] Anion gap [Moles/Vol] 15 mmol/L Normal 6-16 [facility] Comment on above: Performed By: #### 2 468022, 1468492, 7565230, 5248336, 43060737, 0591129 ####[facility] [address] [place] [address] Calcium [Mass/Vol] 9.7 mg/dL Normal 8.9-11.1 [facility] Comment on above: Performed By: #### 2 557614, 6778815, 6328889, 0115009, 40916633, 8397056 ####[facility] [address] [place] [address] Chloride [Moles/Vol] 107 mmol/L Normal 101-111 [facility] Comment on above: Performed By: #### 2 891088, 5503056, 4270150, 1378397, 02588083, 3353476 ####[facility] [address] [place] [address] CO2 [Moles/Vol] 19 mmol/L Low 21-31 [facility] Comment on above: Performed By: #### 2 065731, 4451010, 7169099, 5965262, 28024512, 8235569 ####[facility] [address] [place] [address] Glucose [Mass/Vol] 186 mg/dL Normal 55-199 [facility] Comment on above: Result Comment: If t his glucose result represents a fasting glucose, interpretation should refer to the following reference range: 55-99 mg/dL Performed By: #### 2 674261, 1167633, 2228320, 7602157, 95005150, 3526819 ####[facility] [address] [place] [address] Potassium [Moles/Vol] 3.1 mmol/L Low 3.5-5.3 [facility] Comment on above: Performed By: #### 2 785210, 8086901, 3128484, 6598095, 31635679, 5661687 ####[facility] [address] [place] [address] Sodium [Moles/Vol] 138 mmol/L Normal 135-145 [facility] Comment on above: Performed By: #### 2 977766, 2951469, 0008899, 5408827, 38696489, 3379087 ####[facility] [address] [place] [address] CBC w/ Auto Diffon 3 Erythrocyte distribution width (RBC) [Ratio] 13.4 % Normal 10.9-14.2 [facility] Comment on above: Performed By: #### 2 839342, 3242896, 4337948, 0174305, 94677147, 4271163 ####[place] [place] [address] Hematocrit (Bld) [Volume fraction] 38.1 % Normal 34.0-46.0 [facility] Comment on above: Performed By: #### 2 719795, 4399224, 2613246, 0645388, 02131893, 6628226 ####[address] [address] Hemoglobin (Bld) [Mass/Vol] 12.6 g/dL Normal 12.0-16.0 [facility] Comment on above: Performed By: #### 2 873905, 2766716, 5026460, 8075459, 25638766, 2695496 ####[address] [address] MCH (RBC) [Entitic mass] 29.1 pg Normal 27.0-34.0 [facility] Comment on above: Performed By: #### 2 644981, 5398354, 6759149, 4627723, 05740669, 4361855 ####[facility] [address] [place] [address] MCHC (RBC) [Mass/Vol] 33.0 g/dL Normal 31.4-36.0 [facility] Comment on above: Performed By: #### 2 791653, 9729359, 2491586, 7278211, 55660633, 4550355 ####[address] [place] [address] MCV (RBC) [Entitic vol] 88.3 fL Normal 80.0-100.0 [facility] Comment on above: Performed By: #### 2 032237, 0886374, 6140260, 2318797, 05218884, 7660782 ####[facility] [address] [place] [address] Platelet mean volume (Bld) [Entitic vol] 8.2 fL Normal 6.4-10.8 [facility] Comment on above: Performed By: #### 2 316593, 4314937, 5151749, 7468510, 65899864, 9683272 ####[facility] [address] [place] [address] Platelets (Bld) [#/Vol] 226.0 E9/L Normal 150.0-500.0 [facility] Comment on above: Performed By: #### 2 591871, 5547201, 6981824, 6776782, 07934523, 8132781 ####[address] [address] RBC (Bld) [#/Vol] 4.3 E12/L Normal 4.3-5.9 [facility] Comment on above: Performed By: #### 2 447370, 2030166, 6294704, 2225492, 44537749, 6140017 ####[facility] [address] [place] [address] WBC corrected for nucl RBC Auto (Bld) [#/Vol] 7.8 E9/L Normal 4.0-11.0 [facility] Comment on above: Performed By: #### 2 830978, 9194635, 3963082, 8294471, 17707381, 5701349 ####[facility] [address] [place] [address] CHEMISTRYOrdered By: SYSTEM SYSTEM on 10-02-2022 Albumin [Mass/Vol] 4.1 g/dL Normal 3.3 - 5.0 gm/dL [facility] Albumin/Globulin [Mass ratio] 1.2 {ratio} Normal 1.1 - 2.2 [facility] ALP [Catalytic activity/Vol] 67 [iU]/d Normal 21 - 98 Int._Unit/L [facility] ALT No additional P-5'-P [Catalytic activity/Vol] 8 [iU]/d Normal 6 - 46 Int._Unit/L [facility] Anion gap [Moles/Vol] 15 mmol/L Normal 6 - 16 mEq/L [facility] AST [Catalytic activity/Vol] 20 [iU]/d Normal 5 - 43 Int._Unit/L [facility] Bilirubin [Mass/Vol] 0.7 mg/dL Normal 0.0 - 1 .1 mg/dL [facility] Bilirubin.direct [Mass/Vol] 0.1 mg/dL Normal 0.1 - 0.4 mg/dL [facility] Bilirubin.indirect [Mass or moles/Vol] 0.6 mg/dL Normal 0.1 - 0.9 mg/dL [facility] Calcium [Mass/Vol] 9.7 mg/dL Normal 8.9 - 11. 1 mg/dL [facility] Chloride [Moles/Vol] 107 mmol/L Normal 101 - 1 11 mmol/L [facility] CO2 [Moles/Vol] 19 mmol/L Low 21 - 31 mmol/L [facility] Creatinine [Mass/Vol] 1.1 mg/dL Normal 0.5 - 1.3 mg/dL [facility] GFR/1.73 sq M.predicted among non-blacks MDRD (S/P/Bld) [Vol rate/Area] 55 mL/min/1.73 m2 Low >=59mL/min/1.7 3 m2 [facility] Chem S Globulin (S) [Mass/Vol] 3.5 g/dL Normal 1.4 - 4.0 gm/dL [facility] Glucose [Mass/Vol] 186 mg/dL Normal 55 - 199 mg/dL [facility] Lipase [Catalytic activity/Vol] 41 U/L Normal 13 - 58 unit/L [facility] Potassium [Moles/Vol] 3.1 mmol/L Low 3.5 - 5.3 mmol/L [facility] Protein [Mass/Vol] 7.6 g/dL Normal 6.0 - 7.8 gm/dL [facility] Sodium [Moles/Vol] 138 mmol/L Normal 135 - 145 mmol/L [facility] Remisol Urea nitrogen [Mass/Vol] 16 mg/dL Normal 5 - 21 mg/dL [facility] Urea nitrogen/Creatinine [Mass ratio] 14 mg/mg Normal 10 - 20 [facility] Consent for Treatmenton Consent for Treatment [id number]#1.00CD:127 Normal [facility] ED Clinical Summaryon 2022 ED Clinical Summary Normal [facility] ED Note-Physicianon 10-03-19 ED Note-Physician Normal [facility] Comment on above: Result Comment: Elec tronically Signed By: Clayton DUVALL, Raul Steel.br\Date and Time Signed: 10/02/22 18:44 EDT ED Patient Education Noteon 10-02-2022 ED Patient Education Note Normal [facility] ED Patient Summaryon 023 ED Patient Summary Normal [facility] HEMATOLOGYOrdered By: SYSTEM SYSTEM on 10-02-2022 Basophils/100 WBC (Bld) 0.5 % Normal 0.0 - 2.0 % [facility]eAutoSS Basophils/Leukocytes Auto (Bld) [Pure # fraction] 0.0 E9/L Normal 0.0 - 0.2 E9/L [facility]eAutoSS Eosinophils/100 WBC (Bld) 1.2 % Normal 0.0 - 8.0 % [facility] HemeAutoSS Eosinophils/Leukocytes Auto (Bld) [Pure # fraction] 0.1 E9/L Normal 0.0 - 0.5 E9/L [facility]eAutoSS Lymphocytes/100 WBC (Bld) 19.9 % Normal 14.0 - 50.0 % [facility]eAutoSS Lymphocytes/Leukocytes Auto (Bld) [Pure # fraction] 1.5 E9/L Normal 1.0 - 4.0 E9/L [facility]eAutoSS Monocytes/100 WBC (Bld) 12.7 % Normal 4.0 - 14.0 % [facility]eAutoSS Monocytes/Leukocytes Auto (Bld) [Pure # fraction] 1.0 E9/L Normal 0.2 - 1.0 E9/L [facility]eAutoSS Neutrophils/100 WBC (Bld) 65.7 % Normal 36.0 - 75.0 % [facility]eAutoSS Neutrophils/Leukocytes Auto (Bld) [Pure # fraction] 5.1 E9/L Normal 2.0 - 7.5 E9/L [facility] HemeAutoSS HEMATOLOGYOrdered By: Jose Martin Brar on 10-02-2022 Erythrocyte distribution width (RBC) [Ratio] 13.4 % Normal 10.9 - 14.2 % [facility]eAutoSS Hematocrit (Bld) [Volume fraction] 38.1 % Normal 34.0 - 46.0 % [facility] HemeAutoSS Hemoglobin (Bld) [Mass/Vol] 12.6 g/dL Normal 12.0 - 16.0 gm/dL [facility]eAutoSS MCH (RBC) [Entitic mass] 29.1 pg Normal 27.0 - 34.0 pg [facility]eAutoSS MCHC (RBC) [Mass/Vol] 33.0 g/dL Normal 31.4 - 36.0 gm/dL [facility]eAutoSS MCV (RBC) [Entitic vol] 88.3 fL Normal 80.0 - 100.0 fL [facility]eAutoSS Platelet mean volume (Bld) [Entitic vol] 8.2 fL Normal 6.4 - 10.8 fL [facility] HemeAutoSS Platelets (Bld) [#/Vol] 226.0 E9/L Normal 150. 0 - 500.0 E9/L [facility]eAutoSS RBC (Bld) [#/Vol] 4.3 E12/L Normal 4.3 - 5.9 E12/L [facility] HemeAutoSS WBC corrected for nucl RBC Auto (Bld) [#/Vol] 7.8 E9/L Normal 4.0 - 11.0 E9/L [facility] HemeAutoSS Hep Func Panelon 10-02-2022 Albumin [Mass/Vol] 4.1 g/dL Normal 3.3-5.0 [facility] Comment on above: Performed By: #### 2 695397, 5785902, 2272248, 7959051, 59188469, 3890663 ####[facility] [address] [place] [address] Albumin/Globulin (S) [Mass conc ratio] 1.2 Normal 1.1-2.2 [facility] Comment on above: Performed By: #### 2 520548, 8758687, 3695728, 6831792, 73495169, 6652646 ####[facility] [address] [place] [address] ALP [Catalytic activity/Vol] 67 Int._Unit/L Normal 21-98 [facility] Comment on above: Performed By: #### 2 170971, 6510246, 2520455, 8913607, 58532950, 2878781 ####[place] [address] ALT No additional P-5'-P [Catalytic activity/Vol] 8 Int._Unit/L Normal 6-46 [facility] Comment on above: Performed By: #### 2 519647, 1561735, 0382505, 7829185, 66593632, 3510936 ####[place] [address] AST [Catalytic activity/Vol] 20 Int._Unit/L Normal 5-43 [facility] Comment on above: Performed By: #### 2 013318, 3915356, 0187905, 1382028, 74585743, 1668859 ####[place] [address] Bilirubin [Mass/Vol] 0.7 mg/dL Normal 0.0-1.1 [facility] Comment on above: Performed By: #### 2 270770, 2170079, 3507056, 8988196, 37429292, 2765743 ####[facility] [address] [place] [address] Bilirubin.direct [Mass/Vol] 0.1 mg/dL Normal 0.1-0.4 [facility] Comment on above: Performed By: #### 2 257281, 4809293, 3965994, 8230547, 47108740, 4700820 ####[facility] [address] [place] [address] Bilirubin.indirect [Mass or moles/Vol] 0.6 mg/dL Normal 0.1-0.9 [facility] Comment on above: Performed By: #### 2 647340, 1193500, 7138470, 7276703, 05032451, 3400096 ####[facility] [address] [place] [address] Globulin (S) [Mass/Vol] 3.5 g/dL Normal 1.4-4.0 [facility] Comment on above: Performed By: #### 2 348889, 7603002, 9027959, 4732981, 14463998, 4423530 ####[facility] [address] [place] [address] Protein [Mass/Vol] 7.6 g/dL Normal 6.0-7.8 [facility] Comment on above: Performed By: #### 2 691361, 6717706, 1679320, 3207843, 32425111, 8691463 ####[facility] [address] [place] [address] Lipase Levelon 10-02-2022 Lipase [Catalytic activity/Vol] 41 U/L Normal 13-58 [facility] Comment on above: Performed By: #### 2 074367, 7298412, 8232534, 5876224, 78144071, 0491507 ####[facility] [address] [place] [address] Pre-Arrival Noteon 3 Pre-Arrival Note Normal [facility] eGFRon 10-02-2022 GFR/1.73 sq M.predicted among non-blacks MDRD (S/P/Bld) [Vol rate/Area] 55 mL/min/1.73 m2 Low >=59 [facility] Comment on above: Order Comment: Order added by Discern Expert. Result Comment: Diabetes Territory Manager marquez kidney disease could be indicated at eGFR's of less than 60 mL/min/1.73m2. Kidney failure is indicated at less than 15 mL/min/1.73m2. Performed By: #### 2 781010, 5331467, 6866919, 9430525, 82201404, 2376391 ####[facility] [address] [place] [address] EMS Documentationon 09-18-19 EMS Documentation [id number]#1.00CD:[address] [facility] [address] Head or Brain w/o Contras ton 09-05-2022 CT Head or Brain w/o Contrast [facility] CT Spine Cervical w/o Contra ston 09-05-2022 CT Spine Cervical w/o Contrast [facility] CT Spine Thoracic w/o Contra ston 09-05-2022 CT Spine Thoracic w/o Contrast [facility] Discharge Instructionson Discharge Instructions [id number]#1.00CD:127 [facility] ED Note-Physicianon 09-06-19 ED Note-Physician [facility] Comment on above: Result Comment: Elec tronically Signed By: Vinayak Cardoso PA-C\.br\Date and Time Signed: 09/04/22 23:09 EDT\.br\Electronically Co-Signed By: Earnest Guevara M.D.\.br\Date and Time Co-Signed: 09/05/22 07:27 EDT ED Traumaon 09-05-2022 ED Trauma [id number]#1.00CD:127 [facility] ED Trauma [id number]#1.00CD:127 [facility] EMS Documentationon 09-06-19 EMS Documentation [id number]#1.00CD:127 [facility] Comment on above: Other Comment: under wrong title RAD - Preliminary Cat Scan R eporton 09-05-2022 RAD - Preliminary Cat Scan Report [id number]#1.00CD:127 [facility] ABO/Rhon 09-04-2022 ABO/Rh Positive Invalid Interpretation Code [facility] Comment on above: Performed By: #### 1 1153789, 3306149, 83891320, 93385484 ####[facility] [address] [place] [address] ABO/Rh History Checkon 09-04 ABO/Rh History Check Verified Hx Blood Type Normal [facility] Comment on above: Performed By: #### 1 3996593, 9644071, 27381133, 89253612 ####[address] [address] ABSCon 09-04-2022 ABSC Gel Interp Negative Normal [facility] Comment on above: Performed By: #### 1 9516279, 3600591, 33317073, 38603281 ####[address] [address] Auto Diffon 09-04-2022 Basophils/100 WBC (Bld) 0.2 % Normal 0.0-2.0 [facility] Comment on above: Order Comment: Order Added by Discern Expert. Performed By: #### 1 5408009, 1954618, 0059374, 1569905, 69383351, 8314460, 6950221, 1485278, 4438334 ####[address] [address] Basophils/Leukocytes Auto (Bld) [Pure # fraction] 0.0 E9/L Normal 0.0-0.2 [facility] Comment on above: Order Comment: Order Added by Discern Expert. Performed By: #### 1 5288577, 4682751, 7708918, 4350355, 79486968, 3396255, 8251562, 9059359, 6821210 ####[place] [place] [place] [address] Eosinophils/100 WBC (Bld) 2.0 % Normal 0.0-8.0 [facility] Comment on above: Order Comment: Order Added by Discern Expert. Performed By: #### 1 4838630, 7737344, 7777929, 7958310, 88286103, 5140417, 0400562, 8288838, 5239844 ####[facility] [address] [place] [address] Eosinophils/Leukocytes Auto (Bld) [Pure # fraction] 0.1 E9/L Normal 0.0-0.5 [facility] Comment on above: Order Comment: Order Added by Discern Expert. Performed By: #### 1 9862167, 9262222, 1599553, 5651831, 06150612, 5908123, 0943516, 5821402, 7714499 ####[place] [place] [place] [address] Lymphocytes/100 WBC (Bld) 19.6 % Normal 14.0-50.0 [facility] Comment on above: Order Comment: Order Added by Discern Expert. Performed By: #### 1 5018206, 0951652, 9638211, 2386343, 04473761, 8134584, 3234740, 7785109, 3465458 ####[place] [place] [address] Lymphocytes/Leukocytes Auto (Bld) [Pure # fraction] 1.2 E9/L Normal 1.0-4.0 [facility] Comment on above: Order Comment: Order Added by Discern Expert. Performed By: #### 1 8634941, 7091392, 5562980, 0093177, 61730823, 1960965, 0978660, 8930356, 0790676 ####[address] [place] [address] Monocytes/100 WBC (Bld) 11.2 % Normal 4.0-14.0 [facility] Comment on above: Order Comment: Order Added by Discern Expert. Performed By: #### 1 0665777, 3981807, 0207633, 9476225, 51349142, 3951712, 4173360, 6009989, 2933955 ####[place] [place] [address] Monocytes/Leukocytes Auto (Bld) [Pure # fraction] 0.7 E9/L Normal 0.2-1.0 [facility] Comment on above: Order Comment: Order Added by Discern Expert. Performed By: #### 1 4133233, 0708644, 4928230, 6891922, 21756244, 9061123, 4581131, 1121908, 3666180 ####[facility] [address] [place] [address] Neutrophils/100 WBC (Bld) 67.0 % Normal 36.0-75.0 [facility] Comment on above: Order Comment: Order Added by Discern Expert. Performed By: #### 1 0673946, 7844929, 3074520, 3299388, 56179633, 8484704, 4600579, 2164716, 7406798 ####[facility] [address] [place] [address] Neutrophils/Leukocytes Auto (Bld) [Pure # fraction] 4.0 E9/L Normal 2.0-7.5 [facility] Comment on above: Order Comment: Order Added by Discern Expert. Performed By: #### 1 1884986, 4497287, 3223939, 3293196, 65538929, 5638564, 8148019, 0551257, 6490841 ####[facility] [address] [place] [address] BLOOD BANKOrdered By: Jose Martin Brar on 09-04-2022 ABO/Rh Interp Positive Invalid Interpretation Code [facility] BB Subsection ABSC Gel Interp Negative (09/04/22 4:10 PM) Normal [facility] BB Subsection BMPon 09-04-2022 Creatinine [Mass/Vol] 0.9 mg/dL Normal 0.5-1.3 [facility] Comment on above: Performed By: #### 1 6450045, 1242876, 9690888, 4928032, 91027238, 0153523, 0288937, 5907802, 9262603 ####[facility] [address] [place] [address] Urea nitrogen [Mass/Vol] 9 mg/dL Normal 5-21 [facility] Comment on above: Performed By: #### 1 2439479, 4740088, 6650064, 9343624, 77257415, 4498620, 8571154, 6392357, 6957523 ####[facility] [address] [place] [address] Urea nitrogen/Creatinine [Mass ratio] 10 No Units Normal 10-20 [facility] Comment on above: Performed By: #### 1 4287418, 1894163, 6484289, 0797102, 17140072, 7013070, 4027203, 5803724, 9413444 ####[facility] [address] [place] [address] Anion gap [Moles/Vol] 11 mmol/L Normal 6-16 [facility] Comment on above: Performed By: #### 1 1890618, 1547155, 7501433, 6863906, 15472056, 5718205, 5054963, 9682200, 1098871 ####[facility] [address] [place] [address] Calcium [Mass/Vol] 9.0 mg/dL Normal 8.9-11.1 [facility] Comment on above: Performed By: #### 1 8574694, 7097533, 5319063, 2908742, 26890817, 4401456, 1450280, 1083648, 8069663 ####[facility] [address] [place] [address] Chloride [Moles/Vol] 112 mmol/L High 101-111 [facility] Comment on above: Performed By: #### 1 5768761, 1698228, 1388538, 1635733, 86517019, 8664489, 9715507, 1764833, 5504814 ####[facility] [address] [place] [address] CO2 [Moles/Vol] 20 mmol/L Low 21-31 [facility] Comment on above: Performed By: #### 1 4275330, 3341502, 7477887, 9256796, 90621043, 6202105, 2980625, 0347180, 7546813 ####[facility] [address] [place] [address] Glucose [Mass/Vol] 237 mg/dL High 55-199 [facility] Comment on above: Result Comment: If t his glucose result represents a fasting glucose, interpretation should refer to the following reference range: 55-99 mg/dL Performed By: #### 1 0751288, 5148933, 1348111, 1814116, 37039711, 5952424, 5537174, 8303082, 1128547 ####[facility] [address] [place] [address] Potassium [Moles/Vol] 3.2 mmol/L Low 3.5-5.3 [facility] Comment on above: Performed By: #### 1 9742150, 2417864, 7955032, 6836511, 73831502, 4074398, 7907082, 6364488, 0212795 ####[facility] [address] [place] [address] Sodium [Moles/Vol] 140 mmol/L Normal 135-145 [facility] Comment on above: Performed By: #### 1 3167922, 5995419, 8633689, 2699908, 55675579, 1052396, 1362276, 8864944, 3134868 ####[facility] [address] [place] [address] Blood Bank ID#on 09-04-2022 BBID# [id number] Invalid Interpretation Code [facility] Comment on above: Performed By: #### 1 7059035, 5098429, 25531661, 47147065 ####[facility] [address] [place] [address] CBC w/ Auto Diffon 3 Erythrocyte distribution width (RBC) [Ratio] 13.4 % Normal 10.9-14.2 [facility] Comment on above: Performed By: #### 1 9879917, 9811656, 0541837, 3651240, 12365372, 4482816, 2312609, 4206878, 2644719 ####[place] [address] Hematocrit (Bld) [Volume fraction] 35.0 % Normal 34.0-46.0 [facility] Comment on above: Performed By: #### 1 1641995, 8025133, 5127401, 2214296, 14899188, 6562969, 7211269, 5535281, 7131417 ####[place] [address] Hemoglobin (Bld) [Mass/Vol] 11.5 g/dL Low 12.0-16.0 [facility] Comment on above: Performed By: #### 1 9674946, 1894789, 3726435, 3219859, 77242417, 9058988, 6314566, 2448634, 2468215 ####[place] [address] MCH (RBC) [Entitic mass] 29.2 pg Normal 27.0-34.0 [facility] Comment on above: Performed By: #### 1 8757497, 4024708, 6246993, 1369942, 34259605, 4900612, 4725503, 2134221, 0996182 ####[place] [address] MCHC (RBC) [Mass/Vol] 33.0 g/dL Normal 31.4-36.0 [facility] Comment on above: Performed By: #### 1 4606130, 7436466, 9174352, 3267523, 66962219, 1534471, 8112444, 9899416, 2314880 ####[place] [address] MCV (RBC) [Entitic vol] 88.4 fL Normal 80.0-100.0 [facility] Comment on above: Performed By: #### 1 7664362, 4442544, 2323312, 7579424, 30150825, 5524432, 8892773, 6871517, 9138613 ####[place] [address] Platelet mean volume (Bld) [Entitic vol] 9.2 fL Normal 6.4-10.8 [facility] Comment on above: Performed By: #### 1 5576422, 4770541, 9797854, 9016475, 21387670, 0734588, 0910010, 8661068, 5570848 ####[facility] [address] [place] [id number] Platelets (Bld) [#/Vol] 148.0 E9/L Low 150.0-500.0 [facility] Comment on above: Performed By: #### 1 [id number], 2950496, 6205760, 5150876, 37634535, 6105992, 2366587, 0669300, 9567115 ####[facility] [address] [place] [id number] RBC (Bld) [#/Vol] 4.0 E12/L Low 4.3-5.9 [facility] Comment on above: Performed By: #### 1 [id number], 3125054, 7456727, 7733846, 61546979, 6517224, 9011942, 3677776, 9359996 ####[facility] [address] [place] [id number] WBC corrected for nucl RBC Auto (Bld) [#/Vol] 6.0 E9/L Normal 4.0-11.0 [facility] Comment on above: Performed By: #### 1 [id number], 2050648, 4503872, 5596939, 60637294, 5843628, 5449517, 0869020, 6862726 ####[facility] [address] [place] [address] CHEMISTRYOrdered By: Lab ROP User on 09-04-2022 Glucose [Mass/Vol] 241 mg/dL High 55 - 99 mg/dL [facility] POC Subsection Comment on above: Result Comment: Fausto rubi RN/ POC Device SN [id number] Invalid Interpretation Code [facility] POC Subsection POC User ID [id number] Invalid Interpretation Code [facility] POC Subsection POC Username [email or web address] KING Invalid Interpretation Code [facility] POC Subsection CHEMISTRYOrdered By: SYSTEM SYSTEM on 09-04-2022 Albumin [Mass/Vol] 3.6 g/dL Normal 3.3 - 5.0 gm/dL [facility] Albumin/Globulin [Mass ratio] 1.1 {ratio} Normal 1.1 - 2.2 [facility] ALP [Catalytic activity/Vol] 75 [iU]/d Normal 21 - 98 Int._Unit/L [facility] ALT No additional P-5'-P [Catalytic activity/Vol] 14 [iU]/d Normal 6 - 46 Int._Unit/L [facility] Anion gap [Moles/Vol] 11 mmol/L Normal 6 - 16 mEq/L [facility] AST [Catalytic activity/Vol] 16 [iU]/d Normal 5 - 43 Int._Unit/L [facility] Bilirubin [Mass/Vol] 0.6 mg/dL Normal 0.0 - 1 .1 mg/dL [facility] Bilirubin.direct [Mass/Vol] 0.2 mg/dL Normal 0.1 - 0.4 mg/dL [facility] Bilirubin.indirect [Mass or moles/Vol] 0.4 mg/dL Normal 0.1 - 0.9 mg/dL [facility] Calcium [Mass/Vol] 9.0 mg/dL Normal 8.9 - 11. 1 mg/dL [facility] Chloride [Moles/Vol] 112 mmol/L High 101 - 1 11 mmol/L [facility] CO2 [Moles/Vol] 20 mmol/L Low 21 - 31 mmol/L [facility] Creatinine [Mass/Vol] 0.9 mg/dL Normal 0.5 - 1.3 mg/dL [facility] Ethanol [Mass/Vol] mg/dL Normal <=7mg/dL [facility] GFR/1.73 sq M.predicted among non-blacks MDRD (S/P/Bld) [Vol rate/Area] 70 mL/min/1.73 m2 Normal >=59mL/min/1.7 3 m2 [facility] Chem S Globulin (S) [Mass/Vol] 3.3 g/dL Normal 1.4 - 4.0 gm/dL [facility] Glucose [Mass/Vol] 237 mg/dL High 55 - 199 mg/dL [facility] Lactate [Mass/Vol] 1.7 mmol/L Normal 0.5 - 2.2 mmol/L [facility] Lipase [Catalytic activity/Vol] 40 U/L Normal 13 - 58 unit/L [facility] Potassium [Moles/Vol] 3.2 mmol/L Low 3.5 - 5.3 mmol/L [facility] Protein [Mass/Vol] 6.9 g/dL Normal 6.0 - 7.8 gm/dL [facility] Sodium [Moles/Vol] 140 mmol/L Normal 135 - 145 mmol/L [facility] Troponin I.cardiac [Mass/Vol] 3.20 pg/mL Low 10.10 - 27.10 pg/mL [facility] Urea nitrogen [Mass/Vol] 9 mg/dL Normal 5 - 21 mg/dL [facility] Urea nitrogen/Creatinine [Mass ratio] 10 mg/mg Normal 10 - 20 [facility] COAGULATIONOrdered By: Kraig Bradford on 09-04-2022 aPTT Coag (PPP) [Time] 28.8 s Normal 25.1 - 36.5 second(s) [facility] Auto Coag INR Coag (PPP) [Relative time] 1.1 {INR} Invalid Interpretation Code [facility] Auto Coag PT Coag (PPP) [Time] 12.0 s Normal 9.4 - 1 2.5 second(s) [facility] Auto Coag CT Abdomen/Pelvis w/o Contra ston 09-04-2022 CT Abdomen/Pelvis w/o Contrast Normal [facility] CT Chest w/o Contraston CT Chest w/o Contrast Normal [facility] CT Head or Brain w/o Contras ton 09-04-2022 CT Head or Brain w/o Contrast Normal [facility] CT Spine Cervical w/o Contra ston 09-04-2022 CT Spine Cervical w/o Contrast Normal [facility] Capillary Glucose POCon Glucose [Mass/Vol] 241 mg/dL High 55-99 [facility] Comment on above: Result Comment: Fausto rubi RN/ Performed By: #### 2 [id number] ####[facility] [address] [place] [address] Consent for Treatmenton Consent for Treatment [id number]:127 Normal [facility] Discharge Instructionson Discharge Instructions [id number]:127 Normal [facility] ED Clinical Summaryon 2022 ED Clinical Summary Normal [facility] ED Clinical Summary Normal [facility] ED Note-Physicianon 09-05-19 ED Note-Physician Normal [facility] Comment on above: Result Comment: Elec tronically Signed By: Hari Martinez DO.br\Date and Time Signed: 09/04/22 21:27 EDT ED Patient Education Noteon 09-04-2022 ED Patient Education Note Normal [facility] ED Patient Education Note Normal [facility] ED Patient Summaryon 023 ED Patient Summary Normal [facility] ED Patient Summary Normal [facility] Ethanolon 09-04-2022 Ethanol [Mass/Vol] mg/dL Normal <=7 [facility] Comment on above: Performed By: #### 2 [id number] ####[facility] [address] [place] [address] HEMATOLOGYOrdered By: SYSTEM SYSTEM on 09-04-2022 Basophils/100 WBC (Bld) 0.2 % Normal 0.0 - 2.0 % [facility] HemeAutoSS Basophils/Leukocytes Auto (Bld) [Pure # fraction] 0.0 E9/L Normal 0.0 - 0.2 E9/L [facility] HemeAutoSS Eosinophils/100 WBC (Bld) 2.0 % Normal 0.0 - 8.0 % [facility] HemeAutoSS Eosinophils/Leukocytes Auto (Bld) [Pure # fraction] 0.1 E9/L Normal 0.0 - 0.5 E9/L [facility] HemeAutoSS Lymphocytes/100 WBC (Bld) 19.6 % Normal 14.0 - 50.0 % [facility] HemeAutoSS Lymphocytes/Leukocytes Auto (Bld) [Pure # fraction] 1.2 E9/L Normal 1.0 - 4.0 E9/L [facility] HemeAutoSS Monocytes/100 WBC (Bld) 11.2 % Normal 4.0 - 14.0 % [facility] HemeAutoSS Monocytes/Leukocytes Auto (Bld) [Pure # fraction] 0.7 E9/L Normal 0.2 - 1.0 E9/L [facility] HemeAutoSS Neutrophils/100 WBC (Bld) 67.0 % Normal 36.0 - 75.0 % [facility] HemeAutoSS Neutrophils/Leukocytes Auto (Bld) [Pure # fraction] 4.0 E9/L Normal 2.0 - 7.5 E9/L [facility] HemeAutoSS HEMATOLOGYOrdered By: Jose Martin Brar on 09-04-2022 Erythrocyte distribution width (RBC) [Ratio] 13.4 % Normal 10.9 - 14.2 % [facility]eAutoSS Hematocrit (Bld) [Volume fraction] 35.0 % Normal 34.0 - 46.0 % [facility]eAutoSS Hemoglobin (Bld) [Mass/Vol] 11.5 g/dL Low 12.0 - 16.0 gm/dL [facility]eAutoSS MCH (RBC) [Entitic mass] 29.2 pg Normal 27.0 - 34.0 pg [facility]eAutoSS MCHC (RBC) [Mass/Vol] 33.0 g/dL Normal 31.4 - 36.0 gm/dL [facility]eAutoSS MCV (RBC) [Entitic vol] 88.4 fL Normal 80.0 - 100.0 fL [facility]eAutoSS Platelet mean volume (Bld) [Entitic vol] 9.2 fL Normal 6.4 - 10.8 fL [facility] HemeAutoSS Platelets (Bld) [#/Vol] 148.0 E9/L Low 150. 0 - 500.0 E9/L [facility]eAutoSS RBC (Bld) [#/Vol] 4.0 E12/L Low 4.3 - 5.9 E12/L [facility]eAutoSS WBC corrected for nucl RBC Auto (Bld) [#/Vol] 6.0 E9/L Normal 4.0 - 11.0 E9/L [facility]eAutoSS Hep Func Panelon 09-04-2022 Albumin [Mass/Vol] 3.6 g/dL Normal 3.3-5.0 [facility] Comment on above: Performed By: #### 1 2506606, 2626283, 7389567, 8551050, 69471496, 5514605, 1753156, 9093846, 6188259 ####[facility] [address] [place] [address] Albumin/Globulin (S) [Mass conc ratio] 1.1 Normal 1.1-2.2 [facility] Comment on above: Performed By: #### 1 9237697, 1342385, 2128074, 4728943, 89298535, 4882133, 0752744, 1911891, 3517037 ####[address] [place] [address] ALP [Catalytic activity/Vol] 75 Int._Unit/L Normal 21-98 [facility] Comment on above: Performed By: #### 1 6700781, 1951220, 9160697, 0766357, 88790794, 8989409, 7508947, 0055954, 1464494 ####[facility] [address] [place] [address] ALT No additional P-5'-P [Catalytic activity/Vol] 14 Int._Unit/L Normal 6-46 [facility] Comment on above: Performed By: #### 1 2886807, 6088961, 9031853, 8236406, 77318712, 9688002, 3719846, 3386367, 1618531 ####[address] [place] [address] AST [Catalytic activity/Vol] 16 Int._Unit/L Normal 5-43 [facility] Comment on above: Performed By: #### 1 8813408, 0089905, 5277899, 8230948, 38874006, 8563581, 1591457, 5933782, 5350825 ####[facility] [address] [place] [address] Bilirubin [Mass/Vol] 0.6 mg/dL Normal 0.0-1.1 [facility] Comment on above: Performed By: #### 1 9808167, 6448555, 3204648, 7797720, 00110266, 4917665, 5065191, 9514570, 2499788 ####[address] [place] [address] Bilirubin.direct [Mass/Vol] 0.2 mg/dL Normal 0.1-0.4 [facility] Comment on above: Performed By: #### 1 1804497, 0495964, 2467682, 2095342, 76251914, 3966428, 7919822, 6335425, 3233907 ####[address] [place] [address] Bilirubin.indirect [Mass or moles/Vol] 0.4 mg/dL Normal 0.1-0.9 [facility] Comment on above: Performed By: #### 1 2756148, 6528977, 2725279, 2620539, 79209469, 8278458, 4472650, 6071110, 7918438 ####[address] [address] Globulin (S) [Mass/Vol] 3.3 g/dL Normal 1.4-4.0 [facility] Comment on above: Performed By: #### 1 5459466, 0147663, 7495286, 9740608, 58993567, 5227977, 8761059, 7186433, 5764491 ####[address] [place] [address] Protein [Mass/Vol] 6.9 g/dL Normal 6.0-7.8 [facility] Comment on above: Performed By: #### 1 9159028, 6232183, 8422979, 4143288, 02872555, 5151241, 0443218, 0376027, 0373536 ####[address] [place] [address] Lactic Acidon 09-04-2022 Lactate [Mass/Vol] 1.7 mmol/L Normal 0.5-2.2 [facility] Comment on above: Performed By: #### 1 7708456, 0605081, 2245148, 4397557, 38735472, 8347370, 8596680, 3063693, 1003372 ####[facility] [address] [place] [address] Lipase Levelon 09-04-2022 Lipase [Catalytic activity/Vol] 40 U/L Normal 13-58 [facility] Comment on above: Performed By: #### 1 8964218, 9516296, 7034070, 8611783, 80253854, 5161586, 6491166, 3112086, 9935487 ####[facility] [address] [place] [address] PT & PTTon 09-04-2022 aPTT Coag (PPP) [Time] 28.8 second(s) Normal 25.1-36.5 [facility] Comment on above: Result Comment: Para meter 15 days - 4 weeks 1 - 5 months 6 - 11 months 1 - 5 years 6 - 10 years 11 - 17 years PTT Mean: 35.4 (27.6-45.6) Mean: 33.5 (24.8-40.7) Mean: 32.4 (25.1-40.7) Mean: 31.6 (24.0-39.2) Mean: 31.6 (26.9-38.7) Mean: 31.0 (24.6-38.4) Pediatric Reference ranges were obtained from a study by Constantin Ward et al. prepared from 1437 samples obtained at 7 different centers using the same coagulation reagent and instrumentation as [facility]. Currently there are no coagulation studies available worldwide for children to 14 days, and no normal ranges. Heparin therapeutic range (represented by Anti-Factor Xa activity of 0.2 - 0.4 U/mL) corresponds to PTT of 56.6 - 109.0 sec. Performed By: #### 1 1783885, 9224357, 3311759, 0436390, 77668249, 5076122, 1391976, 3465673, 9594605 ####[facility] [address] [place] [address] INR Coag (PPP) [Relative time] 1.1 {INR} Invalid Interpretation Code [facility] Comment on above: Result Comment: INR results are specifically intended to assess patients stabilized on long-term Anticoagulation therapy suggested INR?s ?Less Intensive Anticoagulation? 2.0 ? 3.0Conventional Range 3.0 ? 4.5 Performed By: #### 1 9170797, 1438541, 4606485, 3785388, 46652650, 4210969, 8540513, 2252454, 4010133 ####[facility] [address] [place] [address] PT Coag (PPP) [Time] 12.0 second(s) Normal 9.4-12.5 [facility] Comment on above: Result Comment: 15 d ays - 4 weeks 1 - 5 months 6 -11 months 1-5 years 6-10 years 11 -17 years Mean: 11.2 (9.5-12.6) Mean: 11.0 (9.7-12.8) Mean: 11.0 (9.8-13.0) Mean: 11.3 (9.9-13.4) Mean: 11.7 (10.0-14.6) Mean: 11.8 (10.0 - 14.1) Pediatric Reference ranges were obtained from a study by Constantin Ward et al. prepared from 1437 samples obtained at 7 different centers using the same coagulation reagent and instrumentation as [facility]. Currently there are no coagulation studies available worldwide for children to 14 days, and no normal ranges. Performed By: #### 1 2588187, 9873733, 4414859, 4326548, 24384081, 8167155, 8695877, 3366176, 9853469 ####[facility] [address] [place] [address] Troponinon 09-04-2022 Troponin I.cardiac [Mass/Vol] 3.20 pg/mL Low 10.10-27.10 [facility] Comment on above: Result Comment: The 95% CI (Confidence Interval) PPV (Positive Predictive Value) for myocardial infarction in females is 38 pg/mL, in males 51 pg/mL. The results should be used in conjunction with clinical conditions of myocardial infarction.(Access High Sensitivity Troponin I Instructions For Use, Cecily Audanika, October 2017) Performed By: #### 1 1308085, 9582395, 2178746, 8458561, 52739435, 3427930, 4170089, 5821111, 9549698 ####[facility] [address] [place] [address] XR Hip 2-3 Views Left + Pelv sundeep 09-04-2022 XR Hip 2-3 Views Left + Pelvis Normal [facility] XR Shoulder Complete Lefton 09-04-2022 XR Shoulder Complete Left Normal [facility] eGFRon 09-04-2022 GFR/1.73 sq M.predicted among non-blacks MDRD (S/P/Bld) [Vol rate/Area] 70 mL/min/1.73 m2 Normal >=59 [facility] Comment on above: Order Comment: Order added by Discern Expert. Result Comment: Diabetes Territory Manager marquez kidney disease could be indicated at eGFR's of less than 60 mL/min/1.73m2. Kidney failure is indicated at less than 15 mL/min/1.73m2. Performed By: #### 1 3915328, 6183613, 0800280, 1496476, 93435802, 7786311, 7276003, 5166925, 7901234 ####[facility] [address] [place] [address] Auto Diffon 08-09-2022 Basophils/100 WBC (Bld) 0.4 % Normal 0.0-2.0 F [facility] Comment on above: Order Comment: Order Added by Discern Expert. Performed By: #### 2 978020, 3927408, 3450545, 11533194, 2873002, 0473835, 4915333, 72749553 ####[facility] [address] [place] [address] Basophils/Leukocytes Auto (Bld) [Pure # fraction] 0.0 E9/L Normal 0.0-0.2 [facility] Comment on above: Order Comment: Order Added by Discern Expert. Performed By: #### 2 104052, 0840229, 1539156, 74368009, 5761489, 9047788, 1009675, 73106887 ####[address] [place] [address] Eosinophils/100 WBC (Bld) 2.8 % Normal 0.0-8.0 [facility] Comment on above: Order Comment: Order Added by Discern Expert. Performed By: #### 2 841285, 9369958, 9744278, 87772941, 7110381, 9857849, 9978644, 16067247 ####[address] [address] Eosinophils/Leukocytes Auto (Bld) [Pure # fraction] 0.1 E9/L Normal 0.0-0.5 [facility] Comment on above: Order Comment: Order Added by Discern Expert. Performed By: #### 2 279772, 0093858, 2818872, 16989214, 1000457, 1945826, 6930164, 61770028 ####[address] [address] Lymphocytes/100 WBC (Bld) 26.3 % Normal 14.0-50.0 [facility] Comment on above: Order Comment: Order Added by Discern Expert. Performed By: #### 2 688994, 1321532, 2864472, 58987829, 0604327, 7009966, 7164408, 89241916 ####[address] [address] Lymphocytes/Leukocytes Auto (Bld) [Pure # fraction] 1.3 E9/L Normal 1.0-4.0 [facility] Comment on above: Order Comment: Order Added by Discern Expert. Performed By: #### 2 120687, 5912316, 3118523, 06257533, 0737240, 0699683, 5855195, 46798483 ####[address] [address] Monocytes/100 WBC (Bld) 10.8 % Normal 4.0-14.0 [facility] Comment on above: Order Comment: Order Added by Discern Expert. Performed By: #### 2 628502, 4250911, 5264631, 80534570, 7791348, 2604607, 3492192, 63644220 ####[facility] [address] [place] [address] Monocytes/Leukocytes Auto (Bld) [Pure # fraction] 0.5 E9/L Normal 0.2-1.0 [facility] Comment on above: Order Comment: Order Added by Discern Expert. Performed By: #### 2 465343, 7845243, 5332011, 35468031, 2521035, 6488539, 0922677, 83421707 ####[address] [place] [address] Neutrophils/100 WBC (Bld) 59.7 % Normal 36.0-75.0 [facility] Comment on above: Order Comment: Order Added by Discern Expert. Performed By: #### 2 751463, 6502603, 9765245, 14449205, 3592674, 1714109, 7148393, 05237366 ####[facility] [address] [place] [address] Neutrophils/Leukocytes Auto (Bld) [Pure # fraction] 2.9 E9/L Normal 2.0-7.5 [facility] Comment on above: Order Comment: Order Added by Discern Expert. Performed By: #### 2 354255, 7300496, 6072828, 05422043, 8475320, 4834737, 9848650, 83269792 ####[facility] [address] [place] [address] BMP 08-09-2022 Creatinine [Mass/Vol] 1.0 mg/dL Normal 0.5-1.3 [facility] Comment on above: Performed By: #### 2 929815, 1343808, 0459358, 61426742, 1854970, 0625154, 0861238, 56592215 ####[facility] [address] [place] [address] Urea nitrogen [Mass/Vol] 12 mg/dL Normal 5-21 [facility] Comment on above: Performed By: #### 2 637601, 6251219, 4787966, 18488978, 7596588, 5988108, 7903125, 11387832 ####[facility] [address] [place] [address] Urea nitrogen/Creatinine [Mass ratio] 12 No Units Normal 10-20 [facility] Comment on above: Performed By: #### 2 012398, 9873195, 0053823, 69390566, 9231664, 1570362, 1171590, 64155442 ####[facility] [address] [place] [address] Anion gap [Moles/Vol] 13 mmol/L Normal 6-16 [facility] Comment on above: Performed By: #### 2 693738, 3707574, 5731840, 61013582, 2606415, 1207665, 8793018, 50635740 ####[facility] [address] [place] [address] Calcium [Mass/Vol] 9.1 mg/dL Normal 8.9-11.1 [facility] Comment on above: Performed By: #### 2 047633, 0581857, 3579229, 72805927, 0274682, 7720013, 1951051, 38339513 ####[facility] [address] [place] [address] Chloride [Moles/Vol] 107 mmol/L Normal 101-111 [facility] Comment on above: Performed By: #### 2 810272, 1833187, 7660745, 29558156, 2513485, 6864986, 7037152, 52543748 ####[facility] [address] [place] [address] CO2 [Moles/Vol] 22 mmol/L Normal 21-31 [facility] Comment on above: Performed By: #### 2 079206, 6070676, 9782174, 88058603, 7483032, 8955800, 1445331, 98635916 ####[facility] [address] [place] [address] Glucose [Mass/Vol] 203 mg/dL High 55-199 [facility] Comment on above: Result Comment: If t his glucose result represents a fasting glucose, interpretation should refer to the following reference range: 55-99 mg/dL Performed By: #### 2 560162, 5777593, 8645936, 07693239, 5986655, 6359748, 6286749, 42337983 ####[facility] [address] [place] [address] Potassium [Moles/Vol] 3.7 mmol/L Normal 3.5-5.3 [facility] Comment on above: Performed By: #### 2 235826, 9212938, 0885945, 29583165, 5829483, 5329080, 5061362, 88074673 ####[facility] [address] [place] [address] Sodium [Moles/Vol] 138 mmol/L Normal 135-145 [facility] Comment on above: Performed By: #### 2 987646, 8626993, 3074961, 51772505, 7656450, 3114489, 9447116, 10511070 ####[address] [place] [address] CBC w/ Auto Diffon 3 Erythrocyte distribution width (RBC) [Ratio] 13.7 % Normal 10.9-14.2 [facility] Comment on above: Performed By: #### 2 879180, 8748843, 5760957, 06771631, 1987808, 7359896, 7685914, 51870389 ####[address] [place] [address] Hematocrit (Bld) [Volume fraction] 38.2 % Normal 34.0-46.0 [facility] Comment on above: Performed By: #### 2 121235, 0654672, 4028395, 24671422, 2148428, 9898820, 3055973, 83333461 ####[facility] [address] [place] [address] Hemoglobin (Bld) [Mass/Vol] 12.1 g/dL Normal 12.0-16.0 [facility] Comment on above: Performed By: #### 2 247109, 5909647, 3585570, 03716238, 1968104, 8880370, 3843161, 04337720 ####[facility] [address] [place] [address] MCH (RBC) [Entitic mass] 28.9 pg Normal 27.0-34.0 [facility] Comment on above: Performed By: #### 2 157123, 5488710, 2776478, 40828208, 9202195, 1148491, 5159311, 06727312 ####[facility] [address] [place] [address] MCHC (RBC) [Mass/Vol] 31.6 g/dL Normal 31.4-36.0 [facility] Comment on above: Performed By: #### 2 085724, 5612559, 4058830, 06443637, 3381967, 5571611, 5446339, 43006466 ####[address] [address] MCV (RBC) [Entitic vol] 91.4 fL Normal 80.0-100.0 F [facility] Comment on above: Performed By: #### 2 926007, 2282826, 9938153, 83654624, 4690206, 2351073, 4811022, 47244071 ####[facility] [address] [place] [address] Platelet mean volume (Bld) [Entitic vol] 8.2 fL Normal 6.4-10.8 [facility] Comment on above: Performed By: #### 2 617640, 0254775, 6831641, 50401464, 7925710, 0909019, 7067721, 49088677 ####[address] [address] Platelets (Bld) [#/Vol] 141.0 E9/L Low 150.0-500.0 [facility] Comment on above: Performed By: #### 2 000091, 6253147, 4239917, 64480081, 0934956, 9786269, 7089564, 93855310 ####[facility] [address] [place] [address] RBC (Bld) [#/Vol] 4.2 E12/L Low 4.3-5.9 [facility] Comment on above: Performed By: #### 2 915135, 9908698, 6678290, 38182787, 1378643, 1978336, 2339153, 29888140 ####[facility] [address] [place] [address] WBC corrected for nucl RBC Auto (Bld) [#/Vol] 4.9 E9/L Normal 4.0-11.0 [facility] Comment on above: Performed By: #### 2 493360, 2915737, 4877963, 78133425, 7258775, 6742089, 7735532, 32937969 ####[facility] [address] [place] [address] CHEMISTRYOrdered By: SYSTEM SYSTEM on 08-09-2022 Albumin [Mass/Vol] 3.9 g/dL Normal 3.3 - 5.0 gm/dL [facility] Albumin/Globulin [Mass ratio] 1.0 {ratio} Low 1.1 - 2.2 [facility] ALP [Catalytic activity/Vol] 86 [iU]/d Normal 21 - 98 Int._Unit/L [facility] ALT No additional P-5'-P [Catalytic activity/Vol] 21 [iU]/d Normal 6 - 46 Int._Unit/L [facility] Anion gap [Moles/Vol] 13 mmol/L Normal 6 - 16 mEq/L [facility] AST [Catalytic activity/Vol] 29 [iU]/d Normal 5 - 43 Int._Unit/L [facility] Bilirubin [Mass/Vol] 0.5 mg/dL Normal 0.0 - 1 .1 mg/dL [facility] Bilirubin.direct [Mass/Vol] mg/dL Normal 0.1 - 0.4 mg/dL [facility] Bilirubin.indirect [Mass or moles/Vol] Unable to Calculate mg/dL Invalid Interpretation Code 0.1 - 0.9 mg/dL [facility] Calcium [Mass/Vol] 9.1 mg/dL Normal 8.9 - 11. 1 mg/dL [facility] Chloride [Moles/Vol] 107 mmol/L Normal 101 - 1 11 mmol/L [facility] CO2 [Moles/Vol] 22 mmol/L Normal 21 - 31 mmol/L [facility] Creatinine [Mass/Vol] 1.0 mg/dL Normal 0.5 - 1.3 mg/dL [facility] GFR/1.73 sq M.predicted among non-blacks MDRD (S/P/Bld) [Vol rate/Area] 62 mL/min/1.73 m2 Normal >=59mL/min/1.7 3 m2 [facility] Chem S Globulin (S) [Mass/Vol] 3.7 g/dL Normal 1.4 - 4.0 gm/dL [facility] Glucose [Mass/Vol] 203 mg/dL High 55 - 199 mg/dL [facility] Lactate [Mass/Vol] 1.9 mmol/L Normal 0.5 - 2.2 mmol/L [facility] Potassium [Moles/Vol] 3.7 mmol/L Normal 3.5 - 5.3 mmol/L [facility] Protein [Mass/Vol] 7.6 g/dL Normal 6.0 - 7.8 gm/dL [facility] Sodium [Moles/Vol] 138 mmol/L Normal 135 - 145 mmol/L [facility] Troponin I.cardiac [Mass/Vol] 2.50 pg/mL Low 10.10 - 27.10 pg/mL [facility] Urea nitrogen [Mass/Vol] 12 mg/dL Normal 5 - 21 mg/dL FT Remisol Urea nitrogen/Creatinine [Mass ratio] 12 mg/mg Normal 10 - 20 FT Remisol CHEMISTRYOrdered By: Lab ROP User on 08-09-2022 Glucose [Mass/Vol] 212 mg/dL High 55 - 99 mg/dL FT C POC Subsection POC Device SN [id number] Invalid Interpretation Code [facility] POC Subsection POC User ID [id number] Invalid Interpretation Code [facility] POC Subsection POC Username STEVE KIMBALL Invalid Interpretation Code [facility] POC Subsection COAGULATIONOrdered By: Vinnie Smith on 08-09-2022 aPTT Coag (PPP) [Time] 31.1 s Normal 25.1 - 36.5 second(s) [facility] Auto Coag INR Coag (PPP) [Relative time] 1.0 {INR} Invalid Interpretation Code [facility] Auto Coag PT Coag (PPP) [Time] 10.9 s Normal 9.4 - 1 2.5 second(s) [facility] Auto Coag CT Head or Brain w/o Contras ton 08-09-2022 CT Head or Brain w/o Contrast Normal [facility] CT Spine Cervical w/o Contra ston 08-09-2022 CT Spine Cervical w/o Contrast Normal [facility] Capillary Glucose POCon 07-29 Glucose [Mass/Vol] 212 mg/dL High 55-99 [facility] Comment on above: Performed By: #### [id number] ####[facility] [address] [place] [address] Consent for Treatmenton 07-29 Consent for Treatment [id number] Normal [facility] Discharge Instructionson Discharge Instructions [id number]:127 Normal [facility] ED Clinical Summaryon 2022 ED Clinical Summary Normal [facility] ED Note-Physicianon 08-10-19 23 ED Note-Physician Normal [facility] Comment on above: Result Comment: Elec tronically Signed By: Raul Arnold DO.deng\Date and Time Signed: 08/09/22 14:13 EDT ED Patient Education Noteon 08-09-2022 ED Patient Education Note Normal [facility] ED Patient Summaryon 023 ED Patient Summary Normal [facility] ED Traumaon 08-09-2022 ED Trauma [id number]:127 Normal [facility] HEMATOLOGYOrdered By: SYSTEM SYSTEM on 08-09-2022 Basophils/100 WBC (Bld) 0.4 % Normal 0.0 - 2.0 % [facility] HemeAutoSS Basophils/Leukocytes Auto (Bld) [Pure # fraction] 0.0 E9/L Normal 0.0 - 0.2 E9/L [facility] Eosinophils/100 WBC (Bld) 2.8 % Normal 0.0 - 8.0 % [facility] Eosinophils/Leukocytes Auto (Bld) [Pure # fraction] 0.1 E9/L Normal 0.0 - 0.5 E9/L [facility] Lymphocytes/100 WBC (Bld) 26.3 % Normal 14.0 - 50.0 % [facility] Lymphocytes/Leukocytes Auto (Bld) [Pure # fraction] 1.3 E9/L Normal 1.0 - 4.0 E9/L [facility] Monocytes/100 WBC (Bld) 10.8 % Normal 4.0 - 14.0 % [facility]Auto[facility] Monocytes/Leukocytes Auto (Bld) [Pure # fraction] 0.5 E9/L Normal 0.2 - 1.0 E9/L [facility] Neutrophils/100 WBC (Bld) 59.7 % Normal 36.0 - 75.0 % [facility] Neutrophils/Leukocytes Auto (Bld) [Pure # fraction] 2.9 E9/L Normal 2.0 - 7.5 E9/L [facility] HEMATOLOGYOrdered By: Kirstin King on 08-09-2022 Erythrocyte distribution width (RBC) [Ratio] 13.7 % Normal 10.9 - 14.2 % [facility] Hematocrit (Bld) [Volume fraction] 38.2 % Normal 34.0 - 46.0 % [facility] Hemoglobin (Bld) [Mass/Vol] 12.1 g/dL Normal 12.0 - 16.0 gm/dL [facility] MCH (RBC) [Entitic mass] 28.9 pg Normal 27.0 - 34.0 pg [facility] MCHC (RBC) [Mass/Vol] 31.6 g/dL Normal 31.4 - 36.0 gm/dL [facility] HemeAutoSS MCV (RBC) [Entitic vol] 91.4 fL Normal 80.0 - 100.0 fL [facility] Platelet mean volume (Bld) [Entitic vol] 8.2 fL Normal 6.4 - 10.8 fL [facility] Platelets (Bld) [#/Vol] 141.0 E9/L Low 150. 0 - 500.0 E9/L [facility] RBC (Bld) [#/Vol] 4.2 E12/L Low 4.3 - 5.9 E12/L [facility]eAuto[facility] WBC corrected for nucl RBC Auto (Bld) [#/Vol] 4.9 E9/L Normal 4.0 - 11.0 E9/L [facility] Hep Func Panelon 08-09-2022 Bilirubin.indirect [Mass or moles/Vol] UTC Abnormal 0.1-0.9 [facility] Comment on above: Result Comment: Resu lt verified by Discern Rule. Performed result UTC (Unable to Calculate) was sent as an Alpha code due the inability to calculate a valid numeric value. Performed By: #### 2 364655, 9066106, 3874785, 15695777, 3857331, 5008067, 5998197, 33158916 ####[facility] [address] [place] [address] Albumin [Mass/Vol] 3.9 g/dL Normal 3.3-5.0 [facility] Comment on above: Performed By: #### 2 851757, 2016614, 9784320, 20034164, 0715244, 4109031, 4084760, 82303184 ####[facility] [address] [place] [address] Albumin/Globulin (S) [Mass conc ratio] 1.0 Low 1.1-2.2 [facility] Comment on above: Performed By: #### 2 799547, 1640105, 4145969, 48261685, 3294385, 3725790, 2424791, 28570770 ####[facility] [address] [place] [address] ALP [Catalytic activity/Vol] 86 Int._Unit/L Normal 21-98 [facility] Comment on above: Performed By: #### 2 871192, 3729816, 0686842, 45365105, 7859724, 5355573, 8961858, 04668159 ####[facility] [address] [place] [address] ALT No additional P-5'-P [Catalytic activity/Vol] 21 Int._Unit/L Normal 6-46 [facility] Comment on above: Performed By: #### 2 444954, 9248975, 7852582, 75380653, 3455774, 6442284, 6385991, 57339466 ####[facility] [address] [place] [address] AST [Catalytic activity/Vol] 29 Int._Unit/L Normal 5-43 [facility] Comment on above: Performed By: #### 2 017358, 9654834, 7342682, 04305646, 8476782, 4242025, 2316948, 32497123 ####[facility] [address] [place] [address] Bilirubin [Mass/Vol] 0.5 mg/dL Normal 0.0-1.1 [facility] Comment on above: Performed By: #### 2 223175, 2275663, 3748783, 39044238, 4147694, 2549545, 5987628, 21222923 ####[facility] [address] [place] [address] Globulin (S) [Mass/Vol] 3.7 g/dL Normal 1.4-4.0 [facility] Comment on above: Performed By: #### 2 415352, 6110935, 8956113, 39355461, 0077874, 2971419, 3562892, 03343258 ####[facility] [address] [place] [address] Protein [Mass/Vol] 7.6 g/dL Normal 6.0-7.8 [facility] Comment on above: Performed By: #### 2 954810, 6151495, 0270875, 68437353, 1027809, 2217627, 9458051, 54311598 ####[facility] [address] [place] [address] Bilirubin.direct [Mass/Vol] mg/dL Normal 0.1-0.4 [facility] Comment on above: Performed By: #### 2 339501, 7248127, 2565695, 63547509, 7742621, 7386082, 4687614, 91962063 ####[facility] [address] [place] [address] Lactic Acidon 08-09-2022 Lactate [Mass/Vol] 1.9 mmol/L Normal 0.5-2.2 [facility] Comment on above: Performed By: #### 2 552949, 5997567, 7914174, 19768406, 4542870, 5740567, 4197191, 08776094 ####[facility] [address] [place] [address] PT & PTTon 08-09-2022 aPTT Coag (PPP) [Time] 31.1 second(s) Normal 25.1-36.5 [facility] Comment on above: Result Comment: Para meter 15 days - 4 weeks 1 - 5 months 6 - 11 months 1 - 5 years 6 - 10 years 11 - 17 years PTT Mean: 35.4 (27.6-45.6) Mean: 33.5 (24.8-40.7) Mean: 32.4 (25.1-40.7) Mean: 31.6 (24.0-39.2) Mean: 31.6 (26.9-38.7) Mean: 31.0 (24.6-38.4) Pediatric Reference ranges were obtained from a study by franklin Garcia al. prepared from 1437 samples obtained at 7 different centers using the same coagulation reagent and instrumentation as [facility]. Currently there are no coagulation studies available worldwide for children to 14 days, and no normal ranges. Heparin therapeutic range (represented by Anti-Factor Xa activity of 0.2 - 0.4 U/mL) corresponds to PTT of 56.6 - 109.0 sec. Performed By: #### 2 451829, 3437391, 9407090, 93488031, 6337785, 5349332, 4793929, 38048780 ####[facility] [address] [place] [address] INR Coag (PPP) [Relative time] 1.0 {INR} Invalid Interpretation Code [facility] Comment on above: Result Comment: INR results are specifically intended to assess patients stabilized on long-term Anticoagulation therapy suggested INR?s ?Less Intensive Anticoagulation? 2.0 ? 3.0Conventional Range 3.0 ? 4.5 Performed By: #### 2 290497, 9329061, 3145987, 65412500, 5505506, 7156410, 8525463, 52440350 ####[facility] [address] [place] [address] PT Coag (PPP) [Time] 10.9 second(s) Normal 9.4-12.5 [facility] Comment on above: Result Comment: 15 d ays - 4 weeks 1 - 5 months 6 -11 months 1-5 years 6-10 years 11 -17 years Mean: 11.2 (9.5-12.6) Mean: 11.0 (9.7-12.8) Mean: 11.0 (9.8-13.0) Mean: 11.3 (9.9-13.4) Mean: 11.7 (10.0-14.6) Mean: 11.8 (10.0 - 14.1) Pediatric Reference ranges were obtained from a study by Constantin Ward et al. prepared from 1437 samples obtained at 7 different centers using the same coagulation reagent and instrumentation as [facility]. Currently there are no coagulation studies available worldwide for children to 14 days, and no normal ranges. Performed By: #### 2 231525, 6946304, 9248030, 47183665, 5884726, 5569028, 3510330, 48972935 ####[facility] [address] [place] [address] Troponinon 08-09-2022 Troponin I.cardiac [Mass/Vol] 2.50 pg/mL Low 10.10-27.10 [facility] Comment on above: Result Comment: The 95% CI (Confidence Interval) PPV (Positive Predictive Value) for myocardial infarction in females is 38 pg/mL, in males 51 pg/mL. The results should be used in conjunction with clinical conditions of myocardial infarction.(Access High Sensitivity Troponin I Instructions For Use, Cecily Buffalo, October 2017) Performed By: #### 2 542439, 9074235, 0748365, 45069774, 9744471, 7567866, 6583716, 66041857 ####[facility] [address] [place] [address] UA With Cult Reflexon 2022 Bilirubin Ql (U) Negative Normal Negative [facility] Comment on above: Performed By: #### 1 8784892 ####[address] [address] Clarity (U) CLEAR Normal Clear [facility] Comment on above: Performed By: #### 1 7002324 ####[address] [address] Color (U) YELLOW Normal Yellow [facility] Comment on above: Performed By: #### 1 8187220 ####[address] [address] Epithelial cells.squamous LM.HPF (Urine sed) [#/Area] 0-2 Normal 0-2 [facility] Comment on above: Performed By: #### 1 7868473 ####[facility] [address] [place] [address] Glucose Test strip (U) [Mass/Vol] 3+ Abnormal Negative [facility] Comment on above: Performed By: #### 1 6573389 ####[address] [address] Hemoglobin Ql (U) Negative Normal Negative [facility] Comment on above: Performed By: #### 1 7701373 ####[facility] [address] [place] [address] Ketones (U) [Mass/Vol] Negative Normal Negative [facility] Comment on above: Performed By: #### 1 8784250 ####[address] [place] [address] [place].plasma/[place]. RBC (Bld) [Mass ratio] 0-3 Normal 0-3 [facility] Comment on above: Performed By: #### 1 1370914 ####[address] [address] Nitrite Ql (U) Negative Normal Negative [facility] Comment on above: Performed By: #### 1 0588574 ####[address] [address] pH (U) 6.0 [pH] Invalid Interpretation Code 5.0-9.0 [facility] Comment on above: Performed By: #### 1 2290363 ####[address] [address] Protein (U) [Mass/Vol] Negative Normal Negative [facility] Comment on above: Performed By: #### 1 2230766 ####[address] [address] Specific gravity (U) [Rel density] <=1.005 Invalid Interpretation Code 1.005-1.030 [facility] Comment on above: Performed By: #### 1 5331810 ####[address] [address] Type of Urine collection method Clean Catch Normal [facility] Comment on above: Performed By: #### 1 4129394 ####[address] [address] Urobilinogen Qn (U) 0.2 {Papa'U}/dL Normal 0.0-1.0 [facility] Comment on above: Performed By: #### 1 5962235 ####[address] [address] WBC Auto Ql (U) Negative Normal Negative [facility] Comment on above: Performed By: #### 1 5878319 ####[facility] [address] [place] [address] WBC LM.HPF (Urine sed) [#/Area] 0-5 Normal 0-5 [facility] Comment on above: Performed By: #### 1 2074983 ####[facility] [address] [place] [address] URINALYSISOrdered By: Sylvia Smith on 08-09-2022 Bilirubin Ql (U) Negative (08/09/22 2:08 PM) Normal Negative [facility] UA Auto SS Clarity (U) Clear (08/09/22 2:08 PM) Normal Clear [facility] UA Auto SS Color (U) Yellow (08/09/22 2:08 PM) Normal Yellow [facility] UA Auto SS Epithelial cells.squamous LM.HPF (Urine sed) [#/Area] 0-2 /HPF Normal 0-2/HPF [facility] UA Aut o SS Glucose Test strip (U) [Mass/Vol] 3+ *ABN* (08/09/22 2:08 PM) Invalid Interpretation Code Negative [facility] UA Auto SS Hemoglobin Ql (U) Negative (08/09/22 2:08 PM) Normal Negative [facility] UA Auto SS Ketones (U) [Mass/Vol] Negative (08/09/22 2:08 PM) Normal Negative [facility] UA Auto SS [place].plasma/[place]. RBC (Bld) [Mass ratio] 0-3 /HPF Normal 0-3/HPF [facility] UA A uto SS Nitrite Ql (U) Negative (08/09/22 2:08 PM) Normal Negative [facility] UA Auto SS pH (U) 6.0 *NA* (08/09/22 2:08 PM) Invalid Interpretation Code 5.0 - 9.0 [facility] UA Auto SS Protein (U) [Mass/Vol] Negative (08/09/22 2:08 PM) Normal Negative [facility] UA Auto SS Specific gravity (U) [Rel density] <=1.005 *NA* (08/09/22 2:08 PM) Invalid Interpretation Code 1.005 - 1.030 [facility] UA Auto SS UA Spec Desc Clean Catch (08/09/22 2:08 PM) Normal [facility] UA Auto SS Urobilinogen Qn (U) 0.0166597 {Papa'U}/dL Normal 0.0 - 1.0 EU/dL [facility] UA Auto SS WBC Auto Ql (U) Negative (08/09/22 2:08 PM) Normal Negative [facility] UA Auto SS WBC LM.HPF (Urine sed) [#/Area] 0-5 /HPF Normal 0-5/HPF [facility] UA Auto SS XR Chest Single Viewon 08-09 XR Chest Single View Normal [facility] eGFRon 08-09-2022 GFR/1.73 sq M.predicted among non-blacks MDRD (S/P/Bld) [Vol rate/Area] 62 mL/min/1.73 m2 Normal >=59 [facility] Comment on above: Order Comment: Order added by Discern Expert. Result Comment: Diabetes Territory Manager marquez kidney disease could be indicated at eGFR's of less than 60 mL/min/1.73m2. Kidney failure is indicated at less than 15 mL/min/1.73m2. Performed By: #### 2 737953, 4118827, 7170693, 18917055, 0019768, 4342482, 5601959, 38712871 ####[facility] [address] [place] [address] ED Note-Nursingon 07-23-2022 ED Note-Nursing Pt discharged and wanted to wait in lobby to await ride from sister. Sister is driving from [place] to take pt home. Normal [facility] Coding Summary.on 07-22-2022 Coding Summary. Normal [facility] Consent for Treatmenton 06-30 Consent for Treatment [id number]#1.00CD:127 [facility] Discharge Instructionson Discharge Instructions [id number]#1.00CD:127 [facility] ED Clinical Summaryon 2022 ED Clinical Summary Normal [facility] ED Note-Physicianon 07-20-19 ED Note-Physician [facility] Comment on above: Result Comment: Elec tronically Signed By: Ty Manrique DO\.br\Date and Time Signed: 07/18/22 23:23 EDT ED Patient Education Noteon 07-19-2022 ED Patient Education Note Normal [facility] ED Patient Summaryon 023 ED Patient Summary Normal [facility] ED Traumaon 07-19-2022 ED Trauma [id number]#1.00CD:127 Normal [facility] EMS Documentationon 07-20-19 23 EMS Documentation Normal [facility] EMS Documentation Normal [facility] EMS Documentation Normal [facility] Pre-Arrival Noteon 3 Pre-Arrival Note Normal [facility] XR Hip 2-3 Views Left + Pelv sundeep 07-19-2022 XR Hip 2-3 Views Left + Pelvis Normal [facility] XR Shoulder Complete Lefton 07-19-2022 XR Shoulder Complete Left Normal [facility] Progress Noteson 07-18-2022 Chief I Dispatcher Authentication Interface Message Text EMERGENCY TRIAGE, TREAT AND TRANSPORT (ET3) DOCUMENTATION OF TELEHEALTH VISIT Date / Time: 07/18/2022 / 1615 Name: Fartun Myers NOTE: CORRECT SPELLING MAY BE ZACH : 1955 SSN: (Not on file) EMS Agency: [facility] [x] Verbal consent obtained [] Implied consent - patient with potential emergency medical condition requiring assessment of capacity to refuse treatment and/or transport VITAL SIGNS: see flowsheet documentation Reason for Telehealth Visit: Chief Complaint Patient presents with Hypertension History of Present Illness: 66 year old female, hx DM, anxiety Called 911 when she felt her BP was high. She thought someone was breaking into her house and became anxious. Denies CP, SOB. Pt st mild frontal headache that is gone now. Additional pertinent PMHx, SocHx, FamHx: Pmhx DM, anxiety, HTN Meds: unsure Soc : no tob, no etoh Review of Systems: Denies the following: neck pain, back pain, dizziness, lightheadedness, chest pain, cough, difficulty breathing, fever, nausea/vomiting, dysuria, leg pain or swelling, new weakness. No recent falls or injury. Exam: General: Awake, no distress, ambulating without walker. ENT: normocephalic, atraumatic Pulmonary: No respiratory distress Cardiovascular: Well perfused Neurologic: Oriented to person, place, time and events. Moving all extremities equally. Psychiatric: Appropriate. Good insight and judgement. Medical Decision Making: This is a 66-year-old female who was concerned about her blood pressure being elevated. This occurred after she became anxious. Her anxiety now has improved. She complained of a mild headache earlier that has also resolved. Patient states she feels at her normal baseline. She is able to ambulate at her normal baseline, and states that the chronic neuropathy in her legs is unchanged. EMS states they are at her residence frequently, they feel they know her well, and that she appears at her normal baseline. Her blood sugar was elevated at 301. Patient states that she is been having more sugar intake and will work harder to be compliant with her medications and diet. I asked her to follow up with the primary care provider. I discussed warning signs of dangerous hypertension and asked her to call 911 if she had any concerns or worsening symptoms. There were no further questions from the patient or EMS crew. Disposition Supported by Telehealth Assessment: ET3 transport decisions: Treat in place EMS Disposition Reported: Same ET3 Encounter Completed by: Naseem Hardy MD Normal [facility] [employer] [facility] Coding Summary.on 05-29-2022 Coding Summary. Normal [facility] IntraOperative Documentson 0 05-23-2022 IntraOperative Documents [id number]#1.00CD:127 Normal [facility] IntraOperative Documents [id number]#1.00CD:127 Normal [facility] Coding Summary.on 05-16-2022 Coding Summary. Normal [facility] Operative Reporton 3 Operative Report Normal [facility] Comment on above: Result Comment: Elec tronically Signed By: Beka Valenzuela CRNAbr\Date and Time Signed: 05/09/22 09:12 EST Operative Report Normal [facility] Comment on above: Result Comment: Elec tronically Signed By: Beka Valenzuela CRNA\Reinierbr\Date and Time Signed: 05/09/22 08:59 EST Main OR Intraoperative Recor don 05-14-2022 Main OR Intraoperative Record [facility] Postoperative Documentson Postoperative Documents [id number]#1.00CD:127 [facility] Progress Note-Physicianon Progress Note-Physician Normal [facility] Comment on above: Result Comment: Elec tronically Signed By: Malcolm Tamayo Jr, DO\.br\Date and Time Signed: 05/13/22 09:32 EST Progress Note-Physician Normal F [facility] Comment on above: Result Comment: Elec tronically Signed By: Malcolm Tamayo Jr, DO\.br\Date and Time Signed: 05/13/22 09:32 EST Consenton 05-10-2022 Consent [id number]#1.00CD:127 [facility] Discharge Instructionson Discharge Instructions [id number]#1.00CD:127 [facility] IntraOperative Documentson 0 05-10-2022 IntraOperative Documents [id number]#1.00CD:127 [facility] Consent for Treatmenton Consent for Treatment [id number]#1.00CD:127 [facility] Endoscopic Procedure Report - Otheron 05-09-2022 Endoscopic Procedure Report - Other [facility] Comment on above: Result Comment: Elec tronically Signed By: EMILY BANKS, [place]\.br\Date and Time Signed: 05/09/22 09:12 EST Other Comment: Mahi wade Attachment - attachment storage system not supported [id number] Can be viewed in source systemMissing Attachment - attachment storage system not supported [id number] Can be viewed in source systemMissing Attachment - attachment storage system not supported [id number] Can be viewed in source systemMissing Attachment - attachment storage system not supported [id number] Can be viewed in source systemMissing Attachment - attachment storage system not supported [id number] Can be viewed in source systemMissing Attachment - attachment storage system not supported [id number] Can be viewed in source system Main OR PACU I Recordon 02-0 Main OR PACU I Record Normal [facility] Main OR Preoperative Recordo n 05-09-2022 Main OR Preoperative Record Normal [facility] Monitor Recordon 05-09-2022 Monitor Record [id number]#1.00CD:127 Normal [facility] Monitor Record [id number]#1.00CD:127 Normal [facility] Coding Summary.on 04-29-2022 Coding Summary. Normal [facility] EMS Documentationon 04-27-19 EMS Documentation Normal [facility] Auto Diffon 04-26-2022 Basophils/100 WBC (Bld) 0.5 % Normal 0.0-2.0 F [facility] Comment on above: Order Comment: Order Added by Discern Expert. Performed By: #### 2 478021, 8863701, 36181416, 0026730, 3931832, 3457039 ####[facility] [address] [place] [address] Basophils/Leukocytes Auto (Bld) [Pure # fraction] 0.0 E9/L Normal 0.0-0.2 [facility] Comment on above: Order Comment: Order Added by Discern Expert. Performed By: #### 2 836265, 9605530, 84659607, 6611865, 9999019, 0225150 ####[facility] [address] [place] [address] Eosinophils/100 WBC (Bld) 4.3 % Normal 0.0-8.0 [facility] Comment on above: Order Comment: Order Added by Discern Expert. Performed By: #### 2 904719, 8056156, 18403253, 7760769, 3339896, 5150459 ####[facility] [address] [place] [address] Eosinophils/Leukocytes Auto (Bld) [Pure # fraction] 0.2 E9/L Normal 0.0-0.5 [facility] Comment on above: Order Comment: Order Added by Katherine Expert. Performed By: #### 2 104339, 8137127, 61554156, 6185271, 8582131, 3634247 ####[facility] [address] [place] [address] Lymphocytes/100 WBC (Bld) 29.5 % Normal 14.0-50.0 [facility] Comment on above: Order Comment: Order Added by Discern Expert. Performed By: #### 2 758054, 3871115, 89748100, 3236505, 1492105, 2246851 ####[address] [address] Lymphocytes/Leukocytes Auto (Bld) [Pure # fraction] 1.5 E9/L Normal 1.0-4.0 [facility] Comment on above: Order Comment: Order Added by Katherine Expert. Performed By: #### 2 152842, 6508516, 96294326, 3014727, 0665605, 0036102 ####[facility] [address] [place] [address] Monocytes/100 WBC (Bld) 10.0 % Normal 4.0-14.0 [facility] Comment on above: Order Comment: Order Added by Katherine Expert. Performed By: #### 2 850883, 6633975, 47410532, 8942261, 1532133, 9554624 ####[address] [place] [address] Monocytes/Leukocytes Auto (Bld) [Pure # fraction] 0.5 E9/L Normal 0.2-1.0 [facility] Comment on above: Order Comment: Order Added by Katherine Expert. Performed By: #### 2 125684, 5698157, 74919331, 3918428, 5483372, 6654450 ####[facility] [address] [place] [address] Neutrophils/100 WBC (Bld) 55.7 % Normal 36.0-75.0 [facility] Comment on above: Order Comment: Order Added by Discern Expert. Performed By: #### 2 682831, 3110429, 87055651, 4095365, 1385402, 8114598 ####[address] [place] [address] Neutrophils/Leukocytes Auto (Bld) [Pure # fraction] 2.8 E9/L Normal 2.0-7.5 [facility] Comment on above: Order Comment: Order Added by Discern Expert. Performed By: #### 2 509180, 9561857, 81662059, 4124467, 7525947, 1479322 ####[address] [address] CBC w/ Auto Diffon 3 Erythrocyte distribution width (RBC) [Ratio] 13.6 % Normal 10.9-14.2 [facility] Comment on above: Performed By: #### 2 059748, 6375724, 78030777, 2617284, 5498790, 4939580 ####[address] [address] Hematocrit (Bld) [Volume fraction] 35.5 % Normal 34.0-46.0 [facility] Comment on above: Performed By: #### 2 257587, 3464925, 60226408, 6900794, 2389415, 0952567 ####[address] [address] Hemoglobin (Bld) [Mass/Vol] 11.3 g/dL Low 12.0-16.0 [facility] Comment on above: Performed By: #### 2 866831, 3243245, 73056784, 6862145, 7104612, 8314691 ####[address] [address] MCH (RBC) [Entitic mass] 28.0 pg Normal 27.0-34.0 [facility] Comment on above: Performed By: #### 2 230705, 5944959, 88112804, 7085620, 4018407, 0376982 ####[facility] [address] [place] [id number] MCHC (RBC) [Mass/Vol] 31.8 g/dL Normal 31.4-36.0 [facility] Comment on above: Performed By: #### 2 695939, 1685321, 92298514, 5563523, 6397061, 0609283 ####[place] [address] MCV (RBC) [Entitic vol] 88.2 fL Normal 80.0-100.0 F [facility] Comment on above: Performed By: #### 2 458159, 2141882, 58885114, 3111598, 3399662, 0907683 ####[place] [address] Platelet mean volume (Bld) [Entitic vol] 8.7 fL Normal 6.4-10.8 [facility] Comment on above: Performed By: #### 2 943099, 3677828, 96307699, 6932296, 0344635, 3472701 ####[place] [address]457 Platelets (Bld) [#/Vol] 148.0 E9/L Low 150.0-500.0 [facility] Comment on above: Performed By: #### 2 533784, 4963083, 83473699, 0840265, 1791471, 1318416 ####[place] 2350457 RBC (Bld) [#/Vol] 4.0 E12/L Low 4.3-5.9 [facility] Comment on above: Performed By: #### 2 282264, 6998024, 69105211, 2452505, 0758257, 2515603 ####[address] [address] WBC corrected for nucl RBC Auto (Bld) [#/Vol] 5.0 E9/L Normal 4.0-11.0 [facility] Comment on above: Performed By: #### 2 186796, 7673639, 53876910, 7139707, 6733396, 1887738 ####[facility] [address] [place] [address] CMPon 04-26-2022 Albumin [Mass/Vol] 3.5 g/dL Normal 3.3-5.0 [facility] Comment on above: Performed By: #### 2 939220, 1064160, 90213144, 9223211, 8420289, 4537330 ####[facility] [address] [place] [address] Albumin/Globulin (S) [Mass conc ratio] 1.0 Low 1.1-2.2 [facility] Comment on above: Performed By: #### 2 416726, 0380500, 61527517, 6517316, 4996893, 4313114 ####[address] [address] ALP [Catalytic activity/Vol] 91 Int._Unit/L Normal 21-98 [facility] Comment on above: Performed By: #### 2 981363, 5343487, 52486412, 3220821, 9959647, 9966501 ####[address] [address] ALT No additional P-5'-P [Catalytic activity/Vol] 18 Int._Unit/L Normal 6-46 [facility] Comment on above: Performed By: #### 2 321836, 7030469, 70930549, 2979172, 8064969, 9119114 ####[facility] [address] [place] [address] AST [Catalytic activity/Vol] 24 Int._Unit/L Normal 5-43 [facility] Comment on above: Performed By: #### 2 542507, 4185197, 59884267, 0741687, 0000557, 1980072 ####[address] [address] Bilirubin [Mass/Vol] 0.4 mg/dL Normal 0.0-1.1 [facility] Comment on above: Performed By: #### 2 367515, 9403266, 83706788, 9444130, 9529819, 6369565 ####[facility] [address] [place] [address] Creatinine [Mass/Vol] 1.0 mg/dL Normal 0.5-1.3 [facility] Comment on above: Performed By: #### 2 078508, 9237404, 68946406, 4076391, 0881649, 2936255 ####[facility] [address] [place] [address] Globulin (S) [Mass/Vol] 3.5 g/dL Normal 1.4-4.0 [facility] Comment on above: Performed By: #### 2 450573, 1697363, 22594645, 2152535, 7783779, 3992388 ####[facility] [address] [place] [address] Protein [Mass/Vol] 7.0 g/dL Normal 6.0-7.8 [facility] Comment on above: Performed By: #### 2 123924, 8071156, 02632345, 2765209, 2912906, 5280577 ####[facility] [address] [place] [address] Urea nitrogen [Mass/Vol] 12 mg/dL Normal 5-21 [facility] Comment on above: Performed By: #### 2 529945, 3341024, 06752092, 9506921, 7405173, 6851708 ####[facility] [address] [place] [address] Urea nitrogen/Creatinine [Mass ratio] 12 No Units Normal 10-20 [facility] Comment on above: Performed By: #### 2 171786, 0789393, 67841419, 0717543, 2333556, 2391740 ####[facility] [address] [place] [address] Anion gap [Moles/Vol] 10 mmol/L Normal 6-16 [facility] Comment on above: Performed By: #### 2 109302, 1242773, 68452928, 0889722, 6710950, 8291709 ####[facility] [address] [place] [address] Calcium [Mass/Vol] 8.7 mg/dL Low 8.9-11.1 [facility] Comment on above: Performed By: #### 2 324415, 7387823, 61810014, 4853505, 7488763, 9923156 ####[facility] [address] [place] [address] Chloride [Moles/Vol] 110 mmol/L Normal 101-111 [facility] Comment on above: Performed By: #### 2 429371, 7327463, 13547892, 1298679, 8311696, 6813061 ####[facility] [address] [place] [address] CO2 [Moles/Vol] 21 mmol/L Normal 21-31 [facility] Comment on above: Performed By: #### 2 519477, 4127263, 93022379, 0142085, 0626878, 2570854 ####[facility] [address] [place] [address] Glucose [Mass/Vol] 190 mg/dL Normal 55-199 [facility] Comment on above: Result Comment: If t his glucose result represents a fasting glucose, interpretation should refer to the following reference range: 55-99 mg/dL Performed By: #### 2 256043, 4905663, 55047525, 5474045, 8052381, 9879845 ####[facility] [address] [place] [address] Potassium [Moles/Vol] 4.0 mmol/L Normal 3.5-5.3 [facility] Comment on above: Performed By: #### 2 216977, 8127057, 93053162, 8590503, 2739742, 0599693 ####[facility] [address] [place] [address] Sodium [Moles/Vol] 137 mmol/L Normal 135-145 [facility] Comment on above: Performed By: #### 2 048868, 1898869, 64123377, 0999061, 1821793, 5931634 ####[facility] [address] [place] [address] Consent for Treatmenton 04-01 Consent for Treatment [id number]#1.00CD:127 Normal [facility] Discharge Instructionson Discharge Instructions [id number]#1.00CD:127 Normal [facility] Discharge Instructions [id number]#1.00CD:127 Normal [facility] Comment on above: Other Comment: Mahi arnold page ED Clinical Summaryon 2022 ED Clinical Summary Normal [facility] ED Note-Physicianon 04-26-19 23 ED Note-Physician Normal [facility] Comment on above: Result Comment: Elec tronically Signed By: Raul Arnold DO.br\Date and Time Signed: 04/26/22 18:11 EST ED Patient Education Noteon 04-26-2022 ED Patient Education Note Normal [facility] ED Patient Summaryon 023 ED Patient Summary Normal [facility] Lipase Levelon 04-26-2022 Lipase [Catalytic activity/Vol] 32 U/L Normal 13-58 [facility] Comment on above: Performed By: #### 2 742152, 8942788, 20832877, 3188425, 6505808, 3481675 ####[facility] [address] [place] [address] Pre-Arrival Noteon 3 Pre-Arrival Note Normal [facility] Troponinon 04-26-2022 Troponin I.cardiac [Mass/Vol] 3.70 pg/mL Low 10.10-27.10 [facility] Comment on above: Result Comment: The 95% CI (Confidence Interval) PPV (Positive Predictive Value) for myocardial infarction in females is 38 pg/mL, in males 51 pg/mL. The results should be used in conjunction with clinical conditions of myocardial infarction.(Access High Sensitivity Troponin I Instructions For Use, Cecily Buffalo, October 2017) Performed By: #### 2 518236, 9029407, 22337028, 2839411, 0120852, 1589459 ####[facility] [address] [place] [address] XR Abdomen Series w/ Chest 1 Viewon 04-26-2022 XR Abdomen Series w/ Chest 1 View Normal [facility] eGFRon 04-26-2022 GFR/1.73 sq M.predicted among blacks MDRD (S/P/Bld) [Vol rate/Area] mL/min/{1.73_m2} Normal >=59 [facility] Comment on above: Order Comment: Order added by Discern Expert. Result Comment: eGFR is race adjusted. AA=. Performed By: #### 2 529654, 9925235, 27487124, 9204514, 1588033, 0029887 ####[facility] [address] [place] [address] GFR/1.73 sq M.predicted among non-blacks MDRD (S/P/Bld) [Vol rate/Area] 55 mL/min/1.73 m2 Low >=59 [facility] Comment on above: Order Comment: Order added by Discern Expert. Result Comment: Diabetes Territory Manager marquez kidney disease could be indicated at eGFR's of less than 60 mL/min/1.73m2. Kidney failure is indicated at less than 15 mL/min/1.73m2. Performed By: #### 2 886503, 2357328, 32014994, 5368789, 6815658, 8097986 ####[facility] [address] [place] [address] EMS Documentationon 04-23-19 23 EMS Documentation Normal [facility] Consent for Procedure/Surger yon 04-15-2022 Consent for Procedure/Surgery [id number]#1.00CD:127 Normal [facility] Gastroenterology Office/Clin ic Noteon 04-11-2022 Gastroenterology Office/Clinic Note Normal [facility] Comment on above: Result Comment: Elec tronically Signed By: Maryellen Da Silva\.br\Date and Time Signed: 04/10/22 12:20 EST\.br\Electronically Co-Signed By: London DIAZ MD\.br\Date and Time Co-Signed: 04/11/22 12:06 EST Ambulatory Visit Summaryon 0 04-10-2022 Ambulatory Visit Summary Invalid Interpretation Code Bridgett esophagitis [facility] Coding Summary.on 04-08-2022 Coding Summary. Normal [facility] EMS Documentationon 04-06-19 EMS Documentation Normal [facility] Coding Summary.on 04-05-2022 Coding Summary. Normal [facility] EMS Documentationon 04-04-19 EMS Documentation Normal [facility] Consent for Treatmenton Consent for Treatment [id number]#1.00CD:127 Normal [facility] ED Clinical Summaryon 2022 ED Clinical Summary Normal [facility] ED Note-Physicianon 04-03-19 ED Note-Physician Normal [facility] Comment on above: Result Comment: Elec tronically Signed By: Vinayak Cardoso PA-C\.br\Date and Time Signed: 04/03/22 20:34 EST\.br\Electronically Co-Signed By: Raul Arnold DO\.br\Date and Time Co-Signed: 04/03/22 21:11 EST ED Patient Education Noteon 04-03-2022 ED Patient Education Note Normal [facility] ED Patient Summaryon 023 ED Patient Summary Normal [facility] ED Traumaon 04-03-2022 ED Trauma [id number]#1.00CD:127 Normal [facility] Pre-Arrival Noteon Pre-Arrival Note Normal [facility] XR Hip 2-3 Views Left + Pelv sundeep 04-03-2022 XR Hip 2-3 Views Left + Pelvis Normal [facility] XR Shoulder Complete Lefton 04-03-2022 XR Shoulder Complete Left Normal [facility] Consent for Treatmenton Consent for Treatment [id number]#1.00CD:127 Normal [facility] Discharge Instructionson Discharge Instructions [id number]#1.00CD:127 Normal [facility] ED Clinical Summaryon 2022 ED Clinical Summary Normal [facility] ED Note-Physicianon 04-02-19 ED Note-Physician Normal [facility] Comment on above: Result Comment: Elec tronically Signed By: Brady Marinelli DO\.br\Date and Time Signed: 04/02/22 10:36 EST ED Patient Education Noteon 04-02-2022 ED Patient Education Note Normal [facility] ED Patient Summaryon 023 ED Patient Summary Normal [facility] ED Traumaon 04-02-2022 ED Trauma [id number]#1.00CD:127 Normal [facility] EMS Documentationon 04-02-19 EMS Documentation Normal [facility] EMS Documentation Normal [facility] XR Elbow 3+ Views Lefton XR Elbow 3+ Views Left Normal [facility] XR Hip 2-3 Views Left + Pelv sundeep 04-02-2022 XR Hip 2-3 Views Left + Pelvis Normal [facility] CHEMISTRYOrdered By: SYSTEM SYSTEM on 03-13-2022 Albumin [Mass/Vol] 3.6 g/dL Normal 3.3 - 5.0 gm/dL [facility] Albumin/Globulin [Mass ratio] 1.1 {ratio} Normal 1.1 - 2.2 [facility] ALP [Catalytic activity/Vol] 98 [iU]/d Normal 21 - 98 Int._Unit/L [facility] ALT No additional P-5'-P [Catalytic activity/Vol] 14 [iU]/d Normal 6 - 46 Int._Unit/L [facility] Anion gap [Moles/Vol] 13 mmol/L Normal 6 - 16 mEq/L [facility] Remisol AST [Catalytic activity/Vol] 16 [iU]/d Normal 5 - 43 Int._Unit/L [facility] Bilirubin [Mass/Vol] 0.6 mg/dL Normal 0.0 - 1 .1 mg/dL [facility] Bilirubin.direct [Mass/Vol] 0.1 mg/dL Normal 0.1 - 0.4 mg/dL [facility] Bilirubin.indirect [Mass or moles/Vol] 0.5 mg/dL Normal 0.1 - 0.9 mg/dL [facility] Calcium [Mass/Vol] 8.6 mg/dL Low 8.9 - 11. 1 mg/dL [facility] Chloride [Moles/Vol] 105 mmol/L Normal 101 - 1 11 mmol/L [facility] CO2 [Moles/Vol] 21 mmol/L Normal 21 - 31 mmol/L [facility] Creatinine [Mass/Vol] 1.0 mg/dL Normal 0.5 - 1.3 mg/dL [facility] GFR/1.73 sq M.predicted among blacks MDRD (S/P/Bld) [Vol rate/Area] mL/min/1.73 m2 Normal >=59mL/min/1.7 3 m2 [facility] Chem S GFR/1.73 sq M.predicted among non-blacks MDRD (S/P/Bld) [Vol rate/Area] 55 mL/min/1.73 m2 Low >=59mL/min/1.7 3 m2 [facility] Chem S Globulin (S) [Mass/Vol] 3.3 g/dL Normal 1.4 - 4.0 gm/dL [facility] Glucose [Mass/Vol] 123 mg/dL Normal 55 - 199 mg/dL [facility] Lipase [Catalytic activity/Vol] 39 U/L Normal 13 - 58 unit/L [facility] Potassium [Moles/Vol] 4.2 mmol/L Normal 3.5 - 5.3 mmol/L [facility] Protein [Mass/Vol] 6.9 g/dL Normal 6.0 - 7.8 gm/dL [facility] Sodium [Moles/Vol] 135 mmol/L Normal 135 - 145 mmol/L [facility] Urea nitrogen [Mass/Vol] 26 mg/dL High 5 - 21 mg/dL [facility] Urea nitrogen/Creatinine [Mass ratio] 26 mg/mg High 10 - 20 [facility] HEMATOLOGYOrdered By: SYSTEM SYSTEM on 03-13-2022 Basophils/100 WBC (Bld) 0.3 % Normal 0.0 - 2.0 % [facility] Basophils/Leukocytes Auto (Bld) [Pure # fraction] 0.0 E9/L Normal 0.0 - 0.2 E9/L [facility] Eosinophils/100 WBC (Bld) 3.4 % Normal 0.0 - 8.0 % [facility] Eosinophils/Leukocytes Auto (Bld) [Pure # fraction] 0.2 E9/L Normal 0.0 - 0.5 E9/L [facility] Lymphocytes/100 WBC (Bld) 24.6 % Normal 14.0 - 50.0 % [facility] Lymphocytes/Leukocytes Auto (Bld) [Pure # fraction] 1.7 E9/L Normal 1.0 - 4.0 E9/L [facility] Monocytes/100 WBC (Bld) 12.3 % Normal 4.0 - 14.0 % [facility] Monocytes/Leukocytes Auto (Bld) [Pure # fraction] 0.8 E9/L Normal 0.2 - 1.0 E9/L [facility] Neutrophils/100 WBC (Bld) 59.4 % Normal 36.0 - 75.0 % [facility] Neutrophils/Leukocytes Auto (Bld) [Pure # fraction] 4.1 E9/L Normal 2.0 - 7.5 E9/L [facility] HEMATOLOGYOrdered By: Alliso n Emma on 03-13-2022 Erythrocyte distribution width (RBC) [Ratio] 13.5 % Normal 10.9 - 14.2 % [facility] Hematocrit (Bld) [Volume fraction] 32.8 % Low 34.0 - 46.0 % [facility] Hemoglobin (Bld) [Mass/Vol] 10.5 g/dL Low 12.0 - 16.0 gm/dL [facility] MCH (RBC) [Entitic mass] 28.4 pg Normal 27.0 - 34.0 pg [facility] MCHC (RBC) [Mass/Vol] 32.0 g/dL Normal 31.4 - 36.0 gm/dL [facility] MCV (RBC) [Entitic vol] 88.7 fL Normal 80.0 - 100.0 fL [facility] Platelet mean volume (Bld) [Entitic vol] 8.3 fL Normal 6.4 - 10.8 fL [facility] Platelets (Bld) [#/Vol] 165.0 E9/L Normal 150. 0 - 500.0 E9/L [facility] RBC (Bld) [#/Vol] 3.7 E12/L Low 4.3 - 5.9 E12/L [facility] WBC corrected for nucl RBC Auto (Bld) [#/Vol] 6.9 E9/L Normal 4.0 - 11.0 E9/L [facility] URINALYSISOrdered By: Anju Carreon on 03-13-2022 Bilirubin Ql (U) Negative (03/13/22 6:28 PM) Normal Negative [facility] UA Auto SS Clarity (U) Clear (03/13/22 6:28 PM) Normal Clear [facility] UA Auto SS Color (U) Yellow (03/13/22 6:28 PM) Normal Yellow [facility]A Auto SS Epithelial cells.squamous LM.HPF (Urine sed) [#/Area] 0-2 /HPF Normal 0-2/HPF [facility] UA Aut o SS Glucose Test strip (U) [Mass/Vol] 3+ *ABN* (03/13/22 6:28 PM) Invalid Interpretation Code Negative [facility]A Auto SS Hemoglobin Ql (U) Negative (03/13/22 6:28 PM) Normal Negative [facility]A Auto SS Ketones (U) [Mass/Vol] Negative (03/13/22 6:28 PM) Normal Negative [facility] UA Auto SS [place].plasma/[place]. RBC (Bld) [Mass ratio] 0-3 /HPF Normal 0-3/HPF [facility] UA A uto SS Nitrite Ql (U) Negative (03/13/22 6:28 PM) Normal Negative [facility] UA Auto SS pH (U) 6.5 *NA* (03/13/22 6:28 PM) Invalid Interpretation Code 5.0 - 9.0 [facility]A Auto SS Protein (U) [Mass/Vol] Negative (03/13/22 6:28 PM) Normal Negative [facility] UA Auto SS Specific gravity (U) [Rel density] <=1.005 *NA* (03/13/22 6:28 PM) Invalid Interpretation Code 1.005 - 1.030 [facility] UA Auto SS UA Spec Desc Clean Catch (03/13/22 6:28 PM) Normal [facility] UA Auto SS Urobilinogen Qn (U) 0.3657092 {Papa'U}/dL Normal 0.0 - 1.0 EU/dL [facility]A Auto SS WBC Auto Ql (U) Negative (03/13/22 6:28 PM) Normal Negative [facility] UA Auto SS WBC LM.HPF (Urine sed) [#/Area] 0-5 /HPF Normal 0-5/HPF [facility] Auto SS CHEMISTRYOrdered By: SYSTEM SYSTEM on 02-08-2022 Albumin [Mass/Vol] 3.2 g/dL Low 3.3 - 5.0 gm/dL [facility] Albumin/Globulin [Mass ratio] 1.0 {ratio} Low 1.1 - 2.2 [facility] ALP [Catalytic activity/Vol] 86 [iU]/d Normal 21 - 98 Int._Unit/L [facility] ALT No additional P-5'-P [Catalytic activity/Vol] 19 [iU]/d Normal 6 - 46 Int._Unit/L [facility] Anion gap [Moles/Vol] 12 mmol/L Normal 6 - 16 mEq/L F [facility] AST [Catalytic activity/Vol] 19 [iU]/d Normal 5 - 43 Int._Unit/L [facility] Beta hydroxybutyrate [Moles/Vol] 0.05 mmol/L Normal 0.02 - 0.27 mmol/L [facility] Bilirubin [Mass/Vol] 0.2 mg/dL Normal 0.0 - 1 .1 mg/dL [facility] Bilirubin.direct [Mass/Vol] mg/dL Normal 0.1 - 0.4 mg/dL [facility] Bilirubin.indirect [Mass or moles/Vol] Unable to Calculate mg/dL Invalid Interpretation Code 0.1 - 0.9 mg/dL [facility] Calcium [Mass/Vol] 9.0 mg/dL Normal 8.9 - 11. 1 mg/dL [facility] Chloride [Moles/Vol] 104 mmol/L Normal 101 - 1 11 mmol/L [facility] CO2 [Moles/Vol] 23 mmol/L Normal 21 - 31 mmol/L [facility] Creatinine [Mass/Vol] 0.9 mg/dL Normal 0.5 - 1.3 mg/dL [facility] GFR/1.73 sq M.predicted among blacks MDRD (S/P/Bld) [Vol rate/Area] mL/min/1.73 m2 Normal >=59mL/min/1.7 3 m2 [facility] Chem S GFR/1.73 sq M.predicted among non-blacks MDRD (S/P/Bld) [Vol rate/Area] mL/min/1.73 m2 Normal >=59mL/min/1.7 3 m2 [facility] Chem S Globulin (S) [Mass/Vol] 3.3 g/dL Normal 1.4 - 4.0 gm/dL [facility] Glucose [Mass/Vol] 316 mg/dL High 55 - 199 mg/dL [facility] Potassium [Moles/Vol] 3.5 mmol/L Normal 3.5 - 5.3 mmol/L [facility] Protein [Mass/Vol] 6.5 g/dL Normal 6.0 - 7.8 gm/dL [facility] Sodium [Moles/Vol] 135 mmol/L Normal 135 - 145 mmol/L [facility] Urea nitrogen [Mass/Vol] 17 mg/dL Normal 5 - 21 mg/dL [facility] Urea nitrogen/Creatinine [Mass ratio] 19 mg/mg Normal 10 - 20 [facility] HEMATOLOGYOrdered By: SYSTEM SYSTEM on 02-08-2022 Basophils/100 WBC (Bld) 1.2 % Normal 0.0 - 2.0 % [facility] Basophils/Leukocytes Auto (Bld) [Pure # fraction] 0.1 E9/L Normal 0.0 - 0.2 E9/L [facility] Eosinophils/100 WBC (Bld) 4.3 % Normal 0.0 - 8.0 % [facility] Eosinophils/Leukocytes Auto (Bld) [Pure # fraction] 0.3 E9/L Normal 0.0 - 0.5 E9/L [facility] Lymphocytes/100 WBC (Bld) 21.4 % Normal 14.0 - 50.0 % [facility] Lymphocytes/Leukocytes Auto (Bld) [Pure # fraction] 1.6 E9/L Normal 1.0 - 4.0 E9/L [facility] Monocytes/100 WBC (Bld) 11.7 % Normal 4.0 - 14.0 % [facility] Monocytes/Leukocytes Auto (Bld) [Pure # fraction] 0.9 E9/L Normal 0.2 - 1.0 E9/L [facility] Neutrophils/100 WBC (Bld) 61.4 % Normal 36.0 - 75.0 % [facility] Neutrophils/Leukocytes Auto (Bld) [Pure # fraction] 4.7 E9/L Normal 2.0 - 7.5 E9/L [facility] HEMATOLOGYOrdered By: Sheila Carter on 02-08-2022 Erythrocyte distribution width (RBC) [Ratio] 13.5 % Normal 10.9 - 14.2 % [facility] Hematocrit (Bld) [Volume fraction] 28.4 % Low 34.0 - 46.0 % [facility] Hemoglobin (Bld) [Mass/Vol] 9.9 g/dL Low 12.0 - 16.0 gm/dL [facility] MCH (RBC) [Entitic mass] 29.2 pg Normal 27.0 - 34.0 pg [facility] MCHC (RBC) [Mass/Vol] 34.7 g/dL Normal 31.4 - 36.0 gm/dL [facility] MCV (RBC) [Entitic vol] 84.1 fL Normal 80.0 - 100.0 fL [facility] Platelet mean volume (Bld) [Entitic vol] 8.1 fL Normal 6.4 - 10.8 fL [facility] Platelets (Bld) [#/Vol] 180.0 E9/L Normal 150. 0 - 500.0 E9/L [facility] RBC (Bld) [#/Vol] 3.4 E12/L Low 4.3 - 5.9 E12/L [facility] WBC corrected for nucl RBC Auto (Bld) [#/Vol] 7.7 E9/L Normal 4.0 - 11.0 E9/L [facility] URINALYSISOrdered By: Bridger tom on 02-08-2022 Bilirubin Ql (U) Negative (02/08/22 9:05 PM) Normal Negative [facility]A Auto SS Clarity (U) Clear (02/08/22 9:05 PM) Normal Clear [facility]A Auto SS Color (U) Yellow (02/08/22 9:05 PM) Normal Yellow [facility] UA Auto SS Epithelial cells.squamous LM.HPF (Urine sed) [#/Area] 3-4 /HPF Normal 0-2/HPF [facility] UA Aut o SS Glucose Test strip (U) [Mass/Vol] 1+ *ABN* (02/08/22 9:05 PM) Invalid Interpretation Code Negative [facility]A Auto SS Hemoglobin Ql (U) Negative (02/08/22 9:05 PM) Normal Negative [facility]A Auto SS Ketones (U) [Mass/Vol] Negative (02/08/22 9:05 PM) Normal Negative [facility] UA Auto SS [place].plasma/[place]. RBC (Bld) [Mass ratio] 0-3 /HPF Normal 0-3/HPF [facility] A uto SS Nitrite Ql (U) Negative (02/08/22 9:05 PM) Normal Negative [facility] UA Auto SS pH (U) 7.0 *NA* (02/08/22 9:05 PM) Invalid Interpretation Code 5.0 - 9.0 [facility]A Auto SS Protein (U) [Mass/Vol] Negative (02/08/22 9:05 PM) Normal Negative [facility]A Auto SS Specific gravity (U) [Rel density] <=1.005 *NA* (02/08/22 9:05 PM) Invalid Interpretation Code 1.005 - 1.030 [facility] UA Auto SS UA Spec Desc Clean Catch (02/08/22 9:05 PM) Normal [facility]A Auto SS Urobilinogen Qn (U) 0.1339874 {Papa'U}/dL Normal 0.0 - 1.0 EU/dL [facility] Auto SS WBC Auto Ql (U) Negative (02/08/22 9:05 PM) Normal Negative [facility] UA Auto SS WBC LM.HPF (Urine sed) [#/Area] 0-5 /HPF Normal 0-5/HPF [facility] UA Auto SS CHEMISTRYOrdered By: SYSTEM SYSTEM on 02-03-2022 Anion gap [Moles/Vol] 8 mmol/L Normal 6 - 16 mEq/L [facility] Calcium [Mass/Vol] 8.2 mg/dL Low 8.9 - 11. 1 mg/dL [facility] Remisol Chloride [Moles/Vol] 111 mmol/L Normal 101 - 1 11 mmol/L [facility] Remisol CO2 [Moles/Vol] 22 mmol/L Normal 21 - 31 mmol/L [facility] Remisol Creatinine [Mass/Vol] 1.2 mg/dL Normal 0.5 - 1.3 mg/dL [facility] Remisol GFR/1.73 sq M.predicted among blacks MDRD (S/P/Bld) [Vol rate/Area] 54 mL/min/1.73 m2 Low >=59mL/min/1.7 3 m2 [facility] Chem S GFR/1.73 sq M.predicted among non-blacks MDRD (S/P/Bld) [Vol rate/Area] 45 mL/min/1.73 m2 Low >=59mL/min/1.7 3 m2 [facility] Chem S Glucose [Mass/Vol] 165 mg/dL Normal 55 - 199 mg/dL [facility] Remisol Potassium [Moles/Vol] 3.2 mmol/L Low 3.5 - 5.3 mmol/L [facility] Remisol Sodium [Moles/Vol] 138 mmol/L Normal 135 - 145 mmol/L [facility] Remisol Urea nitrogen [Mass/Vol] 11 mg/dL Normal 5 - 21 mg/dL [facility] Remisol Urea nitrogen/Creatinine [Mass ratio] 9 mg/mg Low 10 - 20 [facility] Remisol CHEMISTRYOrdered By: Lab ROP User on 02-03-2022 Glucose [Mass/Vol] 186 mg/dL High 55 - 99 mg/dL [facility] C POC Subsection Comment on above: Result Comment: Fausto rubi RN/ POC Device SN [id number] Invalid Interpretation Code [facility] POC Subsection POC User ID [id number] Invalid Interpretation Code [facility] POC Subsection POC Username LORAINE SELVIN Invalid Interpretation Code [facility] POC Subsection HEMATOLOGYOrdered By: SYSTEM SYSTEM on 02-03-2022 Basophils/100 WBC (Bld) 0.4 % Normal 0.0 - 2.0 % [facility] Basophils/Leukocytes Auto (Bld) [Pure # fraction] 0.0 E9/L Normal 0.0 - 0.2 E9/L [facility] Eosinophils/100 WBC (Bld) 7.3 % Normal 0.0 - 8.0 % [facility] Eosinophils/Leukocytes Auto (Bld) [Pure # fraction] 0.4 E9/L Normal 0.0 - 0.5 E9/L [facility] Lymphocytes/100 WBC (Bld) 32.4 % Normal 14.0 - 50.0 % [facility] Lymphocytes/Leukocytes Auto (Bld) [Pure # fraction] 1.7 E9/L Normal 1.0 - 4.0 E9/L [facility] Monocytes/100 WBC (Bld) 15.6 % High 4.0 - 14.0 % [facility] Monocytes/Leukocytes Auto (Bld) [Pure # fraction] 0.8 E9/L Normal 0.2 - 1.0 E9/L [facility] Neutrophils/100 WBC (Bld) 44.3 % Normal 36.0 - 75.0 % [facility] Neutrophils/Leukocytes Auto (Bld) [Pure # fraction] 2.3 E9/L Normal 2.0 - 7.5 E9/L [facility] HEMATOLOGYOrdered By: David Gasca on 02-03-2022 Erythrocyte distribution width (RBC) [Ratio] 13.4 % Normal 10.9 - 14.2 % [facility] Hematocrit (Bld) [Volume fraction] 27.9 % Low 34.0 - 46.0 % [facility] Hemoglobin (Bld) [Mass/Vol] 9.5 g/dL Low 12.0 - 16.0 gm/dL [facility] MCH (RBC) [Entitic mass] 29.5 pg Normal 27.0 - 34.0 pg [facility] MCHC (RBC) [Mass/Vol] 34.1 g/dL Normal 31.4 - 36.0 gm/dL [facility] MCV (RBC) [Entitic vol] 86.4 fL Normal 80.0 - 100.0 fL [facility] Platelet mean volume (Bld) [Entitic vol] 8.9 fL Normal 6.4 - 10.8 fL [facility] Platelets (Bld) [#/Vol] 145.0 E9/L Low 150. 0 - 500.0 E9/L [facility] RBC (Bld) [#/Vol] 3.2 E12/L Low 4.3 - 5.9 E12/L [facility] WBC corrected for nucl RBC Auto (Bld) [#/Vol] 5.3 E9/L Normal 4.0 - 11.0 E9/L [facility] CHEMISTRYOrdered By: Lab ROP User on 02-02-2022 Glucose [Mass/Vol] 155 mg/dL High 55 - 99 mg/dL [facility] C POC Subsection Comment on above: Result Comment: Fausto rubi RN/ POC Device SN [id number] Invalid Interpretation Code [facility] POC Subsection POC User ID [id number] Invalid Interpretation Code [facility] POC Subsection POC Username JERZY BARCENAS Invalid Interpretation Code [facility] POC Subsection Glucose [Mass/Vol] 176 mg/dL High 55 - 99 mg/dL [facility] C POC Subsection Comment on above: Result Comment: Lucille ronak Meter POC Device SN [id number] Invalid Interpretation Code [facility] POC Subsection POC User ID [id number] Invalid Interpretation Code [facility] POC Subsection POC Username LIANA ALLEN Invalid Interpretation Code [facility] POC Subsection CHEMISTRYOrdered By: SYSTEM SYSTEM on 02-02-2022 Anion gap [Moles/Vol] 7 mmol/L Normal 6 - 16 mEq/L [facility] Remisol Calcium [Mass/Vol] 7.8 mg/dL Low 8.9 - 11. 1 mg/dL [facility] Remisol Chloride [Moles/Vol] 115 mmol/L High 101 - 1 11 mmol/L [facility] Rem[facility] CO2 [Moles/Vol] 22 mmol/L Normal 21 - 31 mmol/L [facility] Rem[facility] Creatinine [Mass/Vol] 1.0 mg/dL Normal 0.5 - 1.3 mg/dL [facility] Remisol GFR/1.73 sq M.predicted among blacks MDRD (S/P/Bld) [Vol rate/Area] mL/min/1.73 m2 Normal >=59mL/min/1.7 3 m2 [facility] Chem S GFR/1.73 sq M.predicted among non-blacks MDRD (S/P/Bld) [Vol rate/Area] 55 mL/min/1.73 m2 Low >=59mL/min/1.7 3 m2 [facility] Chem S Glucose [Mass/Vol] 159 mg/dL Normal 55 - 199 mg/dL [facility] Remisol Potassium [Moles/Vol] 3.6 mmol/L Normal 3.5 - 5.3 mmol/L [facility] Remisol Sodium [Moles/Vol] 140 mmol/L Normal 135 - 145 mmol/L [facility] Remisol Urea nitrogen [Mass/Vol] 20 mg/dL Normal 5 - 21 mg/dL [facility] Remisol Urea nitrogen/Creatinine [Mass ratio] 20 mg/mg Normal 10 - 20 [facility] Remisol URINALYSISOrdered By: Gail Stock on 02-02-2022 Bilirubin Ql (U) Negative (02/02/22 7:06 AM) Normal Negative [facility] UA Auto SS Clarity (U) Clear (02/02/22 7:06 AM) Normal Clear [facility] UA Auto SS Color (U) Yellow (02/02/22 7:06 AM) Normal Yellow [facility] UA Auto SS Epithelial cells.squamous LM.HPF (Urine sed) [#/Area] 0-2 /HPF Normal 0-2/HPF [facility] UA Aut o SS Glucose Test strip (U) [Mass/Vol] Negative (02/02/22 7:06 AM) Normal Negative [facility] UA Auto SS Hemoglobin Ql (U) Negative (02/02/22 7:06 AM) Normal Negative [facility] UA Auto SS Ketones (U) [Mass/Vol] Negative (02/02/22 7:06 AM) Normal Negative [facility] UA Auto SS [place].plasma/[place]. RBC (Bld) [Mass ratio] 0-3 /HPF Normal 0-3/HPF [facility] UA A uto SS Nitrite Ql (U) Negative (02/02/22 7:06 AM) Normal Negative [facility] UA Auto SS pH (U) 6.5 *NA* (02/02/22 7:06 AM) Invalid Interpretation Code 5.0 - 9.0 [facility] UA Auto SS Protein (U) [Mass/Vol] Negative (02/02/22 7:06 AM) Normal Negative [facility] UA Auto SS Specific gravity (U) [Rel density] 1.010 *NA* (02/02/22 7:06 AM) Invalid Interpretation Code 1.005 - 1.030 [facility] UA Auto SS UA Spec Desc Clean Catch (02/02/22 7:06 AM) Normal [facility] UA Auto SS Urobilinogen Qn (U) 0.9247924 {Papa'U}/dL Normal 0.0 - 1.0 EU/dL [facility] UA Auto SS WBC Auto Ql (U) Trace *ABN* (02/02/22 7:06 AM) Invalid Interpretation Code Negative [facility] UA Auto SS WBC LM.HPF (Urine sed) [#/Area] 0-5 /HPF Normal 0-5/HPF [facility] UA Auto SS CHEMISTRYOrdered By: Lab ROP User on 02-01-2022 Glucose [Mass/Vol] 261 mg/dL High 55 - 99 mg/dL [facility] POC Subsection Comment on above: Result Comment: Fausto rubi RN/ POC Device SN [id number] Invalid Interpretation Code [facility] POC Subsection POC User ID [id number] Invalid Interpretation Code [facility] POC Subsection POC Username RUFINO AIDE Invalid Interpretation Code [facility] POC Subsection CHEMISTRYOrdered By: SYSTEM SYSTEM on 02-01-2022 Anion gap [Moles/Vol] 10 mmol/L Normal 6 - 16 mEq/L [facility] Remisol Calcium [Mass/Vol] 8.2 mg/dL Low 8.9 - 11. 1 mg/dL [facility] Remisol Chloride [Moles/Vol] 108 mmol/L Normal 101 - 1 11 mmol/L [facility] Remisol CO2 [Moles/Vol] 21 mmol/L Normal 21 - 31 mmol/L [facility] Remisol GFR/1.73 sq M.predicted among blacks MDRD (S/P/Bld) [Vol rate/Area] 42 mL/min/1.73 m2 Low >=59mL/min/1.7 3 m2 [facility] Chem S GFR/1.73 sq M.predicted among non-blacks MDRD (S/P/Bld) [Vol rate/Area] 35 mL/min/1.73 m2 Low >=59mL/min/1.7 3 m2 [facility] Chem S Glucose [Mass/Vol] 128 mg/dL Normal 55 - 199 mg/dL [facility] Remisol Magnesium [Mass/Vol] 2.0 mg/dL Normal 1.3 - 2 .4 mg/dL [facility] Remisol Sodium [Moles/Vol] 136 mmol/L Normal 135 - 145 mmol/L [facility] Remisol Urea nitrogen [Mass/Vol] 31 mg/dL High 5 - 21 mg/dL [facility] Remisol Urea nitrogen/Creatinine [Mass ratio] 21 mg/mg High 10 - 20 [facility] Remisol CHEMISTRYOrdered By: Sylvia Smith on 02-01-2022 Creatinine [Mass/Vol] 1.5 mg/dL High 0.5 - 1.3 mg/dL [facility] Remisol Potassium [Moles/Vol] 3.3 mmol/L Low 3.5 - 5.3 mmol/L [facility] Remisol HEMATOLOGYOrdered By: SYSTEM SYSTEM on 02-01-2022 Basophils/100 WBC (Bld) 0.2 % Normal 0.0 - 2.0 % [facility] Basophils/Leukocytes Auto (Bld) [Pure # fraction] 0.0 E9/L Normal 0.0 - 0.2 E9/L [facility] Eosinophils/100 WBC (Bld) 1.2 % Normal 0.0 - 8.0 % [facility] Eosinophils/Leukocytes Auto (Bld) [Pure # fraction] 0.1 E9/L Normal 0.0 - 0.5 E9/L [facility] Lymphocytes/100 WBC (Bld) 10.3 % Low 14.0 - 50.0 % [facility] Lymphocytes/Leukocytes Auto (Bld) [Pure # fraction] 1.1 E9/L Normal 1.0 - 4.0 E9/L [facility] Monocytes/100 WBC (Bld) 11.2 % Normal 4.0 - 14.0 % [facility] Monocytes/Leukocytes Auto (Bld) [Pure # fraction] 1.2 E9/L High 0.2 - 1.0 E9/L [facility] Neutrophils/100 WBC (Bld) 77.1 % High 36.0 - 75.0 % [facility] Neutrophils/Leukocytes Auto (Bld) [Pure # fraction] 8.3 E9/L High 2.0 - 7.5 E9/L [facility] HEMATOLOGYOrdered By: Kirstin King on 02-01-2022 Erythrocyte distribution width (RBC) [Ratio] 13.4 % Normal 10.9 - 14.2 % [facility] Hematocrit (Bld) [Volume fraction] 30.8 % Low 34.0 - 46.0 % [facility] Hemoglobin (Bld) [Mass/Vol] 10.4 g/dL Low 12.0 - 16.0 gm/dL [facility] MCH (RBC) [Entitic mass] 29.2 pg Normal 27.0 - 34.0 pg [facility] MCHC (RBC) [Mass/Vol] 33.8 g/dL Normal 31.4 - 36.0 gm/dL [facility] MCV (RBC) [Entitic vol] 86.3 fL Normal 80.0 - 100.0 fL [facility] Platelet mean volume (Bld) [Entitic vol] 8.8 fL Normal 6.4 - 10.8 fL [facility] Platelets (Bld) [#/Vol] 161.0 E9/L Normal 150. 0 - 500.0 E9/L [facility] RBC (Bld) [#/Vol] 3.6 E12/L Low 4.3 - 5.9 E12/L [facility] WBC corrected for nucl RBC Auto (Bld) [#/Vol] 10.8 E9/L Normal 4.0 - 11.0 E9/L [facility] CHEMISTRYOrdered By: SYSTEM SYSTEM on 01-31-2022 Albumin [Mass/Vol] 3.8 g/dL Normal 3.3 - 5.0 gm/dL [facility] Remisol Albumin/Globulin [Mass ratio] 1.1 {ratio} Normal 1.1 - 2.2 [facility] Remisol ALP [Catalytic activity/Vol] 118 [iU]/d High 21 - 98 Int._Unit/L [facility] Remisol ALT No additional P-5'-P [Catalytic activity/Vol] 14 [iU]/d Normal 6 - 46 Int._Unit/L [facility] Remisol Anion gap [Moles/Vol] 18 mmol/L High 6 - 16 mEq/L [facility] Remisol AST [Catalytic activity/Vol] 16 [iU]/d Normal 5 - 43 Int._Unit/L [facility] Remisol Bilirubin [Mass/Vol] 0.6 mg/dL Normal 0.0 - 1 .1 mg/dL [facility] Remisol Bilirubin.direct [Mass/Vol] 0.1 mg/dL Normal 0.1 - 0.4 mg/dL [facility] Remisol Bilirubin.indirect [Mass or moles/Vol] 0.5 mg/dL Normal 0.1 - 0.9 mg/dL [facility] Rem[facility] Calcium [Mass/Vol] 9.4 mg/dL Normal 8.9 - 11. 1 mg/dL [facility] Chloride [Moles/Vol] 102 mmol/L Normal 101 - 1 11 mmol/L [facility] CO2 [Moles/Vol] 19 mmol/L Low 21 - 31 mmol/L [facility] GFR/1.73 sq M.predicted among blacks MDRD (S/P/Bld) [Vol rate/Area] 27 mL/min/1.73 m2 Low >=59mL/min/1.7 3 m2 [facility] Chem S GFR/1.73 sq M.predicted among non-blacks MDRD (S/P/Bld) [Vol rate/Area] 22 mL/min/1.73 m2 Low >=59mL/min/1.7 3 m2 [facility] Chem S Globulin (S) [Mass/Vol] 3.6 g/dL Normal 1.4 - 4.0 gm/dL [facility] Rem[facility] Glucose [Mass/Vol] 274 mg/dL High 55 - 199 mg/dL [facility] Lactate [Mass/Vol] 1.2 mmol/L Normal 0.5 - 2.2 mmol/L [facility] Lipase [Catalytic activity/Vol] 29 U/L Normal 13 - 58 unit/L [facility] Potassium [Moles/Vol] 4.4 mmol/L Normal 3.5 - 5.3 mmol/L [facility] Protein [Mass/Vol] 7.4 g/dL Normal 6.0 - 7.8 gm/dL [facility] Sodium [Moles/Vol] 135 mmol/L Normal 135 - 145 mmol/L [facility] Troponin I.cardiac [Mass/Vol] 4.30 pg/mL Low 10.10 - 27.10 pg/mL [facility] Urea nitrogen [Mass/Vol] 34 mg/dL High 5 - 21 mg/dL [facility] Urea nitrogen/Creatinine [Mass ratio] 16 mg/mg Normal 10 - 20 [facility] CHEMISTRYOrdered By: Yosvany Carreon on 01-31-2022 Creatinine [Mass/Vol] 2.2 mg/dL High 0.5 - 1.3 mg/dL [facility] Remisol CHEMISTRYOrdered By: Sejal Carter on 01-31-2022 HbA1c (Bld) [Mass fraction] 9.6 % High <=5.9% [facility] Chem[facility]SS HEMATOLOGYOrdered By: SYSTEM SYSTEM on 01-31-2022 Basophils/100 WBC (Bld) 0.3 % Normal 0.0 - 2.0 % [facility] Basophils/Leukocytes Auto (Bld) [Pure # fraction] 0.0 E9/L Normal 0.0 - 0.2 E9/L [facility] Eosinophils/100 WBC (Bld) 2.9 % Normal 0.0 - 8.0 % [facility] Eosinophils/Leukocytes Auto (Bld) [Pure # fraction] 0.3 E9/L Normal 0.0 - 0.5 E9/L [facility] Lymphocytes/100 WBC (Bld) 10.9 % Low 14.0 - 50.0 % [facility] Lymphocytes/Leukocytes Auto (Bld) [Pure # fraction] 1.0 E9/L Normal 1.0 - 4.0 E9/L [facility] Monocytes/100 WBC (Bld) 8.5 % Normal 4.0 - 14.0 % [facility] Monocytes/Leukocytes Auto (Bld) [Pure # fraction] 0.8 E9/L Normal 0.2 - 1.0 E9/L [facility] Neutrophils/100 WBC (Bld) 77.4 % High 36.0 - 75.0 % [facility] Neutrophils/Leukocytes Auto (Bld) [Pure # fraction] 7.2 E9/L Normal 2.0 - 7.5 E9/L [facility] HemeAutoSS HEMATOLOGYOrdered By: Sheila Carter on 01-31-2022 Erythrocyte distribution width (RBC) [Ratio] 13.5 % Normal 10.9 - 14.2 % [facility] HemeAutoSS Hematocrit (Bld) [Volume fraction] 35.8 % Normal 34.0 - 46.0 % [facility] HemeAutoSS Hemoglobin (Bld) [Mass/Vol] 11.7 g/dL Low 12.0 - 16.0 gm/dL [facility] MCH (RBC) [Entitic mass] 28.7 pg Normal 27.0 - 34.0 pg [facility] MCHC (RBC) [Mass/Vol] 32.6 g/dL Normal 31.4 - 36.0 gm/dL [facility] MCV (RBC) [Entitic vol] 88.1 fL Normal 80.0 - 100.0 fL [facility] Platelet mean volume (Bld) [Entitic vol] 9.3 fL Normal 6.4 - 10.8 fL [facility] Platelets (Bld) [#/Vol] 197.0 E9/L Normal 150. 0 - 500.0 E9/L [facility] RBC (Bld) [#/Vol] 4.1 E12/L Low 4.3 - 5.9 E12/L [facility] WBC corrected for nucl RBC Auto (Bld) [#/Vol] 9.3 E9/L Normal 4.0 - 11.0 E9/L [facility] CHEMISTRYOrdered By: Lab ROP User on 01-30-2022 Glucose [Mass/Vol] 250 mg/dL High 55 - 99 mg/dL [facility] C POC Subsection Comment on above: Result Comment: Fausto CHAUDHARY POC Device SN [id number] Invalid Interpretation Code [facility] POC Subsection POC User ID [id number] Invalid Interpretation Code [facility] POC Subsection POC Username GAGANDEEP HER Invalid Interpretation Code [facility] POC Subsection Glucose [Mass/Vol] 265 mg/dL High 55 - 99 mg/dL [facility] C POC Subsection Comment on above: Result Comment: Fausto CHAUDHARY POC Device SN [id number] Invalid Interpretation Code [facility] POC Subsection POC User ID [id number] Invalid Interpretation Code [facility] POC Subsection POC Username GAGANDEEP HER Invalid Interpretation Code [facility] POC Subsection CHEMISTRYOrdered By: SYSTEM SYSTEM on 01-30-2022 Anion gap [Moles/Vol] 12 mmol/L Normal 6 - 16 mEq/L F [facility] Remisol Calcium [Mass/Vol] 8.8 mg/dL Low 8.9 - 11. 1 mg/dL [facility] Remisol Chloride [Moles/Vol] 106 mmol/L Normal 101 - 1 11 mmol/L [facility] Rem[facility] CO2 [Moles/Vol] 24 mmol/L Normal 21 - 31 mmol/L [facility] Rem[facility] Creatinine [Mass/Vol] 1.1 mg/dL Normal 0.5 - 1.3 mg/dL [facility] Remisol GFR/1.73 sq M.predicted among blacks MDRD (S/P/Bld) [Vol rate/Area] 60 mL/min/1.73 m2 Normal >=59mL/min/1.7 3 m2 [facility] Chem S GFR/1.73 sq M.predicted among non-blacks MDRD (S/P/Bld) [Vol rate/Area] 50 mL/min/1.73 m2 Low >=59mL/min/1.7 3 m2 [facility] Chem S Glucose [Mass/Vol] 255 mg/dL High 55 - 199 mg/dL [facility] Remisol Potassium [Moles/Vol] 3.5 mmol/L Normal 3.5 - 5.3 mmol/L [facility] Remisol Sodium [Moles/Vol] 138 mmol/L Normal 135 - 145 mmol/L [facility] Remisol Urea nitrogen [Mass/Vol] 19 mg/dL Normal 5 - 21 mg/dL [facility] Remisol Urea nitrogen/Creatinine [Mass ratio] 17 mg/mg Normal 10 - 20 [facility] Remisol CHEMISTRYOrdered By: SYSTEM SYSTEM on 01-29-2022 Anion gap [Moles/Vol] 14 mmol/L Normal 6 - 16 mEq/L [facility] Remisol Calcium [Mass/Vol] 9.1 mg/dL Normal 8.9 - 11. 1 mg/dL [facility] Remisol Chloride [Moles/Vol] 103 mmol/L Normal 101 - 1 11 mmol/L [facility] Remisol CO2 [Moles/Vol] 24 mmol/L Normal 21 - 31 mmol/L [facility] Remisol Creatinine [Mass/Vol] 1.1 mg/dL Normal 0.5 - 1.3 mg/dL [facility] Remisol GFR/1.73 sq M.predicted among blacks MDRD (S/P/Bld) [Vol rate/Area] 60 mL/min/1.73 m2 Normal >=59mL/min/1.7 3 m2 [facility] Chem S GFR/1.73 sq M.predicted among non-blacks MDRD (S/P/Bld) [Vol rate/Area] 50 mL/min/1.73 m2 Low >=59mL/min/1.7 3 m2 [facility] Chem S Glucose [Mass/Vol] 245 mg/dL High 55 - 199 mg/dL [facility] Remisol Potassium [Moles/Vol] 3.5 mmol/L Normal 3.5 - 5.3 mmol/L [facility] Remisol Sodium [Moles/Vol] 137 mmol/L Normal 135 - 145 mmol/L [facility] Remisol Urea nitrogen [Mass/Vol] 18 mg/dL Normal 5 - 21 mg/dL [facility] Remisol Urea nitrogen/Creatinine [Mass ratio] 16 mg/mg Normal 10 - 20 [facility] Remisol Anion gap [Moles/Vol] 13 mmol/L Normal 6 - 16 mEq/L F [facility] Remisol Calcium [Mass/Vol] 9.0 mg/dL Normal 8.9 - 11. 1 mg/dL [facility] Remisol Chloride [Moles/Vol] 107 mmol/L Normal 101 - 1 11 mmol/L [facility] CO2 [Moles/Vol] 23 mmol/L Normal 21 - 31 mmol/L [facility] Remisol Creatinine [Mass/Vol] 1.2 mg/dL Normal 0.5 - 1.3 mg/dL [facility] Remisol GFR/1.73 sq M.predicted among blacks MDRD (S/P/Bld) [Vol rate/Area] 54 mL/min/1.73 m2 Low >=59mL/min/1.7 3 m2 [facility] Chem S GFR/1.73 sq M.predicted among non-blacks MDRD (S/P/Bld) [Vol rate/Area] 45 mL/min/1.73 m2 Low >=59mL/min/1.7 3 m2 [facility] Chem S Glucose [Mass/Vol] 151 mg/dL Normal 55 - 199 mg/dL [facility] Remisol Potassium [Moles/Vol] 3.7 mmol/L Normal 3.5 - 5.3 mmol/L [facility] Remisol Sodium [Moles/Vol] 139 mmol/L Normal 135 - 145 mmol/L [facility] Remisol Urea nitrogen [Mass/Vol] 15 mg/dL Normal 5 - 21 mg/dL [facility] Remisol Urea nitrogen/Creatinine [Mass ratio] 12 mg/mg Normal 10 - 20 [facility] Remisol CHEMISTRYOrdered By: Lab ROP User on 01-29-2022 Glucose [Mass/Vol] 248 mg/dL High 55 - 99 mg/dL [facility] C POC Subsection Comment on above: Result Comment: Fausto rubi RN/ POC Device SN [id number] Invalid Interpretation Code [facility] POC Subsection POC User ID [id number] Invalid Interpretation Code [facility] POC Subsection POC Username ESTEFANY GUZMAN Invalid Interpretation Code [facility] POC Subsection CHEMISTRYOrdered By: SYSTEM SYSTEM on 01-28-2022 Albumin [Mass/Vol] 3.5 g/dL Normal 3.3 - 5.0 gm/dL [facility] Remisol Albumin/Globulin [Mass ratio] 1.0 {ratio} Low 1.1 - 2.2 [facility] Remisol ALP [Catalytic activity/Vol] 85 [iU]/d Normal 21 - 98 Int._Unit/L [facility] Remisol ALT No additional P-5'-P [Catalytic activity/Vol] 12 [iU]/d Normal 6 - 46 Int._Unit/L [facility] Remisol AST [Catalytic activity/Vol] 16 [iU]/d Normal 5 - 43 Int._Unit/L [facility] Remisol Bilirubin [Mass/Vol] 0.4 mg/dL Normal 0.0 - 1 .1 mg/dL [facility] Remisol Bilirubin.direct [Mass/Vol] mg/dL Normal 0.1 - 0.4 mg/dL [facility] Remisol Bilirubin.indirect [Mass or moles/Vol] Unable to Calculate mg/dL Invalid Interpretation Code 0.1 - 0.9 mg/dL [facility] Remisol Globulin (S) [Mass/Vol] 3.7 g/dL Normal 1.4 - 4.0 gm/dL [facility] Remisol Lipase [Catalytic activity/Vol] 35 U/L Normal 13 - 58 unit/L [facility] Remisol Protein [Mass/Vol] 7.2 g/dL Normal 6.0 - 7.8 gm/dL [facility] Remisol FT Blood GasesOrdered By: Nakia Aguayo on 01-28-2022 Allens Test Not Applicable (01/28/22 1:53 PM) Normal [facility] Resp Auto SS Drawn by lab Invalid Interpretation Code [facility] Resp Auto SS FIO2 BG 21 Invalid Interpretation Code [facility] Resp Auto SS pCO2 Randall 36.7 mm[Hg] Low 38.0 - 50.0 mmHg [facility] Resp Auto SS pH Randall 7.288 Low 7.320 - 7.430 [facility] Resp Auto SS Sample Site OTHER (01/28/22 1:53 PM) Normal [facility] Resp Auto SS Sample Type Venous Draw (01/28/22 1:53 PM) Normal [facility] Resp Auto SS HEMATOLOGYOrdered By: SYSTEM SYSTEM on 01-28-2022 Basophils/100 WBC (Bld) 0.1 % Normal 0.0 - 2.0 % [facility] Basophils/Leukocytes Auto (Bld) [Pure # fraction] 0.0 E9/L Normal 0.0 - 0.2 E9/L [facility] Eosinophils/100 WBC (Bld) 0.0 % Normal 0.0 - 8.0 % [facility] Eosinophils/Leukocytes Auto (Bld) [Pure # fraction] 0.0 E9/L Normal 0.0 - 0.5 E9/L [facility] Lymphocytes/100 WBC (Bld) 5.7 % Low 14.0 - 50.0 % [facility] Lymphocytes/Leukocytes Auto (Bld) [Pure # fraction] 0.8 E9/L Low 1.0 - 4.0 E9/L [facility] Monocytes/100 WBC (Bld) 8.6 % Normal 4.0 - 14.0 % [facility] Monocytes/Leukocytes Auto (Bld) [Pure # fraction] 1.2 E9/L High 0.2 - 1.0 E9/L [facility] Neutrophils/100 WBC (Bld) 85.6 % High 36.0 - 75.0 % [facility] Neutrophils/Leukocytes Auto (Bld) [Pure # fraction] 11.8 E9/L High 2.0 - 7.5 E9/L [facility] HEMATOLOGYOrdered By: Jose Martin Brar on 01-28-2022 Erythrocyte distribution width (RBC) [Ratio] 13.3 % Normal 10.9 - 14.2 % [facility] Hematocrit (Bld) [Volume fraction] 34.5 % Normal 34.0 - 46.0 % [facility] Hemoglobin (Bld) [Mass/Vol] 10.7 g/dL Low 12.0 - 16.0 gm/dL [facility] MCH (RBC) [Entitic mass] 28.6 pg Normal 27.0 - 34.0 pg [facility] MCHC (RBC) [Mass/Vol] 31.1 g/dL Low 31.4 - 36.0 gm/dL [facility] MCV (RBC) [Entitic vol] 92.0 fL Normal 80.0 - 100.0 fL [facility] Platelet mean volume (Bld) [Entitic vol] 9.0 fL Normal 6.4 - 10.8 fL [facility] Platelets (Bld) [#/Vol] 193.0 E9/L Normal 150. 0 - 500.0 E9/L [facility] RBC (Bld) [#/Vol] 3.8 E12/L Low 4.3 - 5.9 E12/L [facility] WBC corrected for nucl RBC Auto (Bld) [#/Vol] 13.8 E9/L High 4.0 - 11.0 E9/L [facility] URINALYSISOrdered By: Bridger tom on 01-28-2022 Bilirubin Ql (U) Negative (01/28/22 2:37 PM) Normal Negative [facility] UA Auto SS Clarity (U) Clear (01/28/22 2:37 PM) Normal Clear [facility] UA Auto SS Color (U) Straw *ABN* (01/28/22 2:37 PM) Invalid Interpretation Code Yellow [facility] UA Auto SS Epithelial cells.squamous LM.HPF (Urine sed) [#/Area] 0-2 /HPF Normal 0-2/HPF [facility] UA Aut o SS Glucose Test strip (U) [Mass/Vol] 3+ *ABN* (01/28/22 2:37 PM) Invalid Interpretation Code Negative [facility] UA Auto SS Hemoglobin Ql (U) Negative (01/28/22 2:37 PM) Normal Negative [facility] UA Auto SS Ketones (U) [Mass/Vol] Negative (01/28/22 2:37 PM) Normal Negative [facility] UA Auto SS [place].plasma/[place]. RBC (Bld) [Mass ratio] 0-3 /HPF Normal 0-3/HPF [facility] UA A uto SS Nitrite Ql (U) Negative (01/28/22 2:37 PM) Normal Negative [facility] UA Auto SS pH (U) 7.0 *NA* (01/28/22 2:37 PM) Invalid Interpretation Code 5.0 - 9.0 [facility] UA Auto SS Protein (U) [Mass/Vol] Negative (01/28/22 2:37 PM) Normal Negative [facility] UA Auto SS Specific gravity (U) [Rel density] <=1.005 *NA* (01/28/22 2:37 PM) Invalid Interpretation Code 1.005 - 1.030 [facility] UA Auto SS UA Spec Desc Clean Catch (01/28/22 2:37 PM) Normal [facility] UA Auto SS Urobilinogen Qn (U) [id number] {Papa'U}/dL Normal 0.0 - 1.0 EU/dL [facility] UA Auto SS WBC Auto Ql (U) Negative (01/28/22 2:37 PM) Normal Negative [facility] UA Auto SS WBC LM.HPF (Urine sed) [#/Area] 0-5 /HPF Normal 0-5/HPF [facility] UA Auto SS CHEMISTRYOrdered By: Lab ROP User on 01-27-2022 Glucose [Mass/Vol] 187 mg/dL High 55 - 99 mg/dL FT C POC Subsection Comment on above: Result Comment: Fausto rubi RN/ POC Device SN [id number] Invalid Interpretation Code [facility] POC Subsection POC User ID [id number] Invalid Interpretation Code [facility] POC Subsection POC Username [email or web address] KING Invalid Interpretation Code [facility] POC Subsection CHEMISTRYOrdered By: SYSTEM SYSTEM on 01-27-2022 Albumin [Mass/Vol] 4.2 g/dL Normal 3.3 - 5.0 gm/dL [facility] Remisol Albumin/Globulin [Mass ratio] 1.0 {ratio} Low 1.1 - 2.2 [facility] Remisol ALP [Catalytic activity/Vol] 99 [iU]/d High 21 - 98 Int._Unit/L [facility] Remisol ALT No additional P-5'-P [Catalytic activity/Vol] 12 [iU]/d Normal 6 - 46 Int._Unit/L [facility] Remisol Anion gap [Moles/Vol] 13 mmol/L Normal 6 - 16 mEq/L [facility] Remisol AST [Catalytic activity/Vol] 16 [iU]/d Normal 5 - 43 Int._Unit/L [facility] Remisol Bilirubin [Mass/Vol] 0.4 mg/dL Normal 0.0 - 1 .1 mg/dL [facility] Bilirubin.direct [Mass/Vol] 0.1 mg/dL Normal 0.1 - 0.4 mg/dL [facility] Bilirubin.indirect [Mass or moles/Vol] 0.3 mg/dL Normal 0.1 - 0.9 mg/dL [facility] Calcium [Mass/Vol] 9.4 mg/dL Normal 8.9 - 11. 1 mg/dL [facility] Chloride [Moles/Vol] 102 mmol/L Normal 101 - 1 11 mmol/L [facility] CO2 [Moles/Vol] 23 mmol/L Normal 21 - 31 mmol/L [facility] Creatinine [Mass/Vol] 1.1 mg/dL Normal 0.5 - 1.3 mg/dL [facility] GFR/1.73 sq M.predicted among blacks MDRD (S/P/Bld) [Vol rate/Area] 60 mL/min/1.73 m2 Normal >=59mL/min/1.7 3 m2 [facility] Chem S GFR/1.73 sq M.predicted among non-blacks MDRD (S/P/Bld) [Vol rate/Area] 50 mL/min/1.73 m2 Low >=59mL/min/1.7 3 m2 [facility] Chem S Globulin (S) [Mass/Vol] 4.3 g/dL High 1.4 - 4.0 gm/dL [facility] Rem[facility] Glucose [Mass/Vol] 295 mg/dL High 55 - 199 mg/dL [facility] Lipase [Catalytic activity/Vol] 45 U/L Normal 13 - 58 unit/L [facility] Magnesium [Mass/Vol] 2.1 mg/dL Normal 1.3 - 2 .4 mg/dL [facility] Potassium [Moles/Vol] 3.6 mmol/L Normal 3.5 - 5.3 mmol/L [facility] Protein [Mass/Vol] 8.5 g/dL High 6.0 - 7.8 gm/dL [facility] Sodium [Moles/Vol] 134 mmol/L Low 135 - 145 mmol/L [facility] Urea nitrogen [Mass/Vol] 18 mg/dL Normal 5 - 21 mg/dL [facility] Remisol Urea nitrogen/Creatinine [Mass ratio] 16 mg/mg Normal 10 - 20 [facility] Remisol COAGULATIONOrdered By: Bridger Thomas on 01-27-2022 aPTT Coag (PPP) [Time] 16.6 s Low 25.1 - 36.5 second(s) [facility] Auto Coag INR Coag (PPP) [Relative time] 0.9 {INR} Invalid Interpretation Code [facility] Auto Coag PT Coag (PPP) [Time] 10.2 s Normal 9.4 - 1 2.5 second(s) [facility] Auto Coag HEMATOLOGYOrdered By: SYSTEM SYSTEM on 01-27-2022 Basophils/100 WBC (Bld) 0.3 % Normal 0.0 - 2.0 % [facility] HemeAutoSS Basophils/Leukocytes Auto (Bld) [Pure # fraction] 0.0 E9/L Normal 0.0 - 0.2 E9/L [facility] HemeAutoSS Eosinophils/100 WBC (Bld) 4.7 % Normal 0.0 - 8.0 % [facility] HemeAutoSS Eosinophils/Leukocytes Auto (Bld) [Pure # fraction] 0.4 E9/L Normal 0.0 - 0.5 E9/L [facility] Lymphocytes/100 WBC (Bld) 19.0 % Normal 14.0 - 50.0 % [facility] Lymphocytes/Leukocytes Auto (Bld) [Pure # fraction] 1.7 E9/L Normal 1.0 - 4.0 E9/L [facility] Monocytes/100 WBC (Bld) 8.3 % Normal 4.0 - 14.0 % [facility] Monocytes/Leukocytes Auto (Bld) [Pure # fraction] 0.7 E9/L Normal 0.2 - 1.0 E9/L [facility] Neutrophils/100 WBC (Bld) 67.7 % Normal 36.0 - 75.0 % [facility] Neutrophils/Leukocytes Auto (Bld) [Pure # fraction] 6.1 E9/L Normal 2.0 - 7.5 E9/L [facility] HEMATOLOGYOrdered By: Kirstin King on 01-27-2022 Erythrocyte distribution width (RBC) [Ratio] 13.2 % Normal 10.9 - 14.2 % [facility] Hematocrit (Bld) [Volume fraction] 35.6 % Normal 34.0 - 46.0 % [facility] Hemoglobin (Bld) [Mass/Vol] 11.8 g/dL Low 12.0 - 16.0 gm/dL [facility] MCH (RBC) [Entitic mass] 28.7 pg Normal 27.0 - 34.0 pg [facility] MCHC (RBC) [Mass/Vol] 33.2 g/dL Normal 31.4 - 36.0 gm/dL [facility] MCV (RBC) [Entitic vol] 86.6 fL Normal 80.0 - 100.0 fL [facility] Platelet mean volume (Bld) [Entitic vol] 9.3 fL Normal 6.4 - 10.8 fL [facility] Platelets (Bld) [#/Vol] 155.0 E9/L Normal 150. 0 - 500.0 E9/L [facility] RBC (Bld) [#/Vol] 4.1 E12/L Low 4.3 - 5.9 E12/L [facility] WBC corrected for nucl RBC Auto (Bld) [#/Vol] 9.0 E9/L Normal 4.0 - 11.0 E9/L [facility] URINALYSISOrdered By: Bridger tom on 01-27-2022 Bilirubin Ql (U) Negative (01/27/22 3:30 PM) Normal Negative [facility] UA Auto SS Clarity (U) Clear (01/27/22 3:30 PM) Normal Clear [facility] UA Auto SS Color (U) STRAW Invalid Interpretation Code [facility] UA Auto SS Crystals LM Ql (Urine sed) Present (01/27/22 3:30 PM) Normal [facility] UA Auto SS Epithelial cells.squamous LM.HPF (Urine sed) [#/Area] 0-2 /HPF Normal 0-2/HPF [facility] UA Aut o SS Glucose Test strip (U) [Mass/Vol] 3+ *ABN* (01/27/22 3:30 PM) Invalid Interpretation Code Negative [facility] UA Auto SS Hemoglobin Ql (U) Negative (01/27/22 3:30 PM) Normal Negative [facility] UA Auto SS Ketones (U) [Mass/Vol] Negative (01/27/22 3:30 PM) Normal Negative [facility] UA Auto SS [place].plasma/[place]. RBC (Bld) [Mass ratio] 0-3 /HPF Normal 0-3/HPF [facility] UA A uto SS Mucus Ql (Urine sed) Trace (01/27/22 3:30 PM) Normal [facility] UA Auto SS Nitrite Ql (U) Negative (01/27/22 3:30 PM) Normal Negative [facility] UA Auto SS pH (U) 6.0 *NA* (01/27/22 3:30 PM) Invalid Interpretation Code 5.0 - 9.0 [facility] UA Auto SS Protein (U) [Mass/Vol] Negative (01/27/22 3:30 PM) Normal Negative [facility] UA Auto SS Specific gravity (U) [Rel density] <=1.005 *NA* (01/27/22 3:30 PM) Invalid Interpretation Code 1.005 - 1.030 [facility] UA Auto SS UA Spec Desc Clean Catch (01/27/22 3:30 PM) Normal [facility] UA Auto SS Urobilinogen Qn (U) [id number] {Papa'U}/dL Normal 0.0 - 1.0 EU/dL [facility] UA Auto SS WBC Auto Ql (U) Negative (01/27/22 3:30 PM) Normal Negative [facility] UA Auto SS WBC LM.HPF (Urine sed) [#/Area] 0-5 /HPF Normal 0-5/HPF [facility] UA Auto SS CHEMISTRYOrdered By: Lab ROP User on 11-17-2021 Glucose [Mass/Vol] 82 mg/dL Normal 55 - 99 mg/dL [facility] C POC Subsection Comment on above: Result Comment: Lucille ronak Meter POC Device SN [id number] Invalid Interpretation Code [facility] POC Subsection POC User ID [id number] Invalid Interpretation Code [facility] POC Subsection POC Username BHARGAV CANO Invalid Interpretation Code [facility] POC Subsection Glucose [Mass/Vol] 126 mg/dL High 55 - 99 mg/dL [facility] C POC Subsection POC Device SN [id number] Invalid Interpretation Code [facility] POC Subsection POC User ID [id number] Invalid Interpretation Code [facility] POC Subsection POC Username AGUSTIN GARSIA Invalid Interpretation Code [facility] POC Subsection CHEMISTRYOrdered By: SYSTEM SYSTEM on 11-17-2021 Albumin [Mass/Vol] 3.7 g/dL Normal 3.3 - 5.0 gm/dL [facility] Remisol Albumin/Globulin [Mass ratio] 1.1 {ratio} Normal 1.1 - 2.2 [facility] ALP [Catalytic activity/Vol] 73 [iU]/d Normal 21 - 98 Int._Unit/L [facility] ALT No additional P-5'-P [Catalytic activity/Vol] 14 [iU]/d Normal 6 - 46 Int._Unit/L [facility] Anion gap [Moles/Vol] 14 mmol/L Normal 6 - 16 mEq/L [facility] AST [Catalytic activity/Vol] 17 [iU]/d Normal 5 - 43 Int._Unit/L [facility] Bilirubin [Mass/Vol] 0.3 mg/dL Normal 0.0 - 1 .1 mg/dL [facility] Calcium [Mass/Vol] 9.0 mg/dL Normal 8.9 - 11. 1 mg/dL [facility] Chloride [Moles/Vol] 107 mmol/L Normal 101 - 1 11 mmol/L [facility] CO2 [Moles/Vol] 18 mmol/L Low 21 - 31 mmol/L [facility] Creatinine [Mass/Vol] 1.1 mg/dL Normal 0.5 - 1.3 mg/dL [facility] Remisol GFR/1.73 sq M.predicted among blacks MDRD (S/P/Bld) [Vol rate/Area] 60 mL/min/1.73 m2 Normal >=59mL/min/1.7 3 m2 FT Chem S GFR/1.73 sq M.predicted among non-blacks MDRD (S/P/Bld) [Vol rate/Area] 50 mL/min/1.73 m2 Low >=59mL/min/1.7 3 m2 FT Chem S Globulin (S) [Mass/Vol] 3.5 g/dL Normal 1.4 - 4.0 gm/dL [facility] Remisol Glucose [Mass/Vol] 105 mg/dL Normal 55 - 199 mg/dL [facility] Remisol Lipase [Catalytic activity/Vol] 30 U/L Normal 13 - 58 unit/L [facility] Potassium [Moles/Vol] 3.2 mmol/L Low 3.5 - 5.3 mmol/L [facility] Protein [Mass/Vol] 7.2 g/dL Normal 6.0 - 7.8 gm/dL [facility] Sodium [Moles/Vol] 136 mmol/L Normal 135 - 145 mmol/L [facility] Troponin I.cardiac [Mass/Vol] 3.00 pg/mL Low 10.10 - 27.10 pg/mL [facility] Urea nitrogen [Mass/Vol] 13 mg/dL Normal 5 - 21 mg/dL [facility] Urea nitrogen/Creatinine [Mass ratio] 12 mg/mg Normal 10 - 20 [facility] COAGULATIONOrdered By: David Gasca on 11-17-2021 aPTT Coag (PPP) [Time] 31.2 s Normal 25.1 - 36.5 second(s) [facility] Auto Coag INR Coag (PPP) [Relative time] 1.1 {INR} Invalid Interpretation Code [facility] Auto Coag PT Coag (PPP) [Time] 12.0 s Normal 9.4 - 1 2.5 second(s) [facility] Auto Coag HEMATOLOGYOrdered By: SYSTEM SYSTEM on 11-17-2021 Basophils/100 WBC (Bld) 0.6 % Normal 0.0 - 2.0 % [facility] Basophils/Leukocytes Auto (Bld) [Pure # fraction] 0.0 E9/L Normal 0.0 - 0.2 E9/L [facility] Eosinophils/100 WBC (Bld) 7.2 % Normal 0.0 - 8.0 % [facility] Eosinophils/Leukocytes Auto (Bld) [Pure # fraction] 0.4 E9/L Normal 0.0 - 0.5 E9/L [facility] Lymphocytes/100 WBC (Bld) 30.0 % Normal 14.0 - 50.0 % [facility] Lymphocytes/Leukocytes Auto (Bld) [Pure # fraction] 1.7 E9/L Normal 1.0 - 4.0 E9/L [facility] Monocytes/100 WBC (Bld) 14.6 % High 4.0 - 14.0 % [facility] Monocytes/Leukocytes Auto (Bld) [Pure # fraction] 0.8 E9/L Normal 0.2 - 1.0 E9/L [facility] Neutrophils/100 WBC (Bld) 47.6 % Normal 36.0 - 75.0 % [facility] Neutrophils/Leukocytes Auto (Bld) [Pure # fraction] 2.7 E9/L Normal 2.0 - 7.5 E9/L [facility] HEMATOLOGYOrdered By: Kirstin King on 11-17-2021 Erythrocyte distribution width (RBC) [Ratio] 13.5 % Normal 10.9 - 14.2 % [facility] Hematocrit (Bld) [Volume fraction] 33.1 % Low 34.0 - 46.0 % [facility] Hemoglobin (Bld) [Mass/Vol] 10.9 g/dL Low 12.0 - 16.0 gm/dL [facility] MCH (RBC) [Entitic mass] 29.2 pg Normal 27.0 - 34.0 pg [facility] MCHC (RBC) [Mass/Vol] 33.0 g/dL Normal 31.4 - 36.0 gm/dL [facility] MCV (RBC) [Entitic vol] 88.4 fL Normal 80.0 - 100.0 fL [facility] Platelet mean volume (Bld) [Entitic vol] 8.3 fL Normal 6.4 - 10.8 fL [facility] Platelets (Bld) [#/Vol] 159.0 E9/L Normal 150. 0 - 500.0 E9/L [facility] RBC (Bld) [#/Vol] 3.8 E12/L Low 4.3 - 5.9 E12/L [facility] WBC corrected for nucl RBC Auto (Bld) [#/Vol] 5.8 E9/L Normal 4.0 - 11.0 E9/L [facility] URINALYSISOrdered By: David Gasca on 11-17-2021 Bilirubin Ql (U) Negative (11/17/21 7:06 PM) Normal Negative [facility] UA Auto SS Clarity (U) Clear (11/17/21 7:06 PM) Normal Clear [facility] UA Auto SS Color (U) Yellow (11/17/21 7:06 PM) Normal Yellow [facility] UA Auto SS Epithelial cells.squamous LM.HPF (Urine sed) [#/Area] 0-2 /HPF Normal 0-2/HPF [facility] UA Aut o SS Glucose Test strip (U) [Mass/Vol] Negative (11/17/21 7:06 PM) Normal Negative [facility] UA Auto SS Hemoglobin Ql (U) Negative (11/17/21 7:06 PM) Normal Negative [facility] UA Auto SS Ketones (U) [Mass/Vol] Negative (11/17/21 7:06 PM) Normal Negative [facility] UA Auto SS [place].plasma/[place]. RBC (Bld) [Mass ratio] 0-3 /HPF Normal 0-3/HPF [facility] UA A uto SS Nitrite Ql (U) Negative (11/17/21 7:06 PM) Normal Negative [facility] UA Auto SS pH (U) 6.0 *NA* (11/17/21 7:06 PM) Invalid Interpretation Code 5.0 - 9.0 [facility] UA Auto SS Protein (U) [Mass/Vol] Negative (11/17/21 7:06 PM) Normal Negative [facility] UA Auto SS Specific gravity (U) [Rel density] <=1.005 *NA* (11/17/21 7:06 PM) Invalid Interpretation Code 1.005 - 1.030 [facility] UA Auto SS UA Spec Desc Clean Catch (11/17/21 7:06 PM) Normal [facility] UA Auto SS Urobilinogen Qn (U) [id number] {Papa'U}/dL Normal 0.0 - 1.0 EU/dL [facility] UA Auto SS WBC Auto Ql (U) Negative (11/17/21 7:06 PM) Normal Negative [facility] UA Auto SS WBC LM.HPF (Urine sed) [#/Area] 0-5 /HPF Normal 0-5/HPF [facility] UA Auto SS Vital Signs Date Time Vital Sign Value Performing Clinician Facility 03-03-2023 13:45-0500 Body height 162.56 cm Ashish Chester Other [facility] Other 03-03-2023 13:45-0500 Body temperature 97.5 [degF] Ashish Chester Other [facility] Other 03-03-2023 13:45-0500 Diastolic blood pressure 55 mm[Hg] Ashish Chester Other [facility] Other 03-03-2023 13:45-0500 Systolic blood pressure 112 mm[Hg] Ashish Chester Other [facility] Other 02-13-2023 09:43-0500 Diastolic blood pressure 58 mm[Hg] Joaquim Noe [facility] 02-13-2023 09:43-0500 Heart rate 60 /min Joaquim Noe [facility] 02-13-2023 09:43-0500 Respiratory rate 16 /min Joaquim Noe [facility] 02-13-2023 09:43-0500 SaO2% (BldA) [Mass fraction] 99 % Joaquim Noe [facility] 02-13-2023 09:43-0500 Systolic blood pressure 124 mm[Hg] Joaquim Noe [facility] 02-13-2023 08:39-0500 Heart rate 57 /min Joaquim Noe [facility] 02-13-2023 08:39-0500 SaO2% (BldA) [Mass fraction] 98 % Joaquim Noe [facility] 02-13-2023 08:37-0500 Respiratory rate 18 /min Joaquim Noe [facility] 02-13-2023 08:37-0500 Diastolic blood pressure 73 mm[Hg] Joaquim Noe [facility] 02-13-2023 08:37-0500 Mean blood pressure 94 mm[Hg] Joaquimraquel Noe [facility] 02-13-2023 08:37-0500 Systolic blood pressure 136 mm[Hg] Joaquim Noe [facility] 02-13-2023 08:30-0500 Blood Pressure Location Joaquim Noe [facility] 02-13-2023 08:30-0500 Body temperature 98.06 [degF] Joaquim Noe [facility] 02-13-2023 08:30-0500 Diastolic blood pressure 53 mm[Hg] Joaquim Noe [facility] 02-13-2023 08:30-0500 Heart rate 61 /min Joaquim Noe [facility] 02-13-2023 08:30-0500 Mean blood pressure 78 mm[Hg] Joaquim Noe [facility] 02-13-2023 08:30-0500 Respiratory rate 11 /min Joaquim Noe [facility] 02-13-2023 08:30-0500 SaO2% (BldA) [Mass fraction] 97 % Joaquim Noe [facility] 02-13-2023 08:30-0500 Systolic blood pressure 129 mm[Hg] Joaquim Noe [facility] 02-13-2023 08:20-0500 Blood Pressure Location Joaquim Noe [facility] 02-13-2023 08:20-0500 Mean blood pressure 76 mm[Hg] Joaquim Noe [facility] 02-13-2023 08:20-0500 Respiratory rate 9 /min Joaquim Noe [facility] 02-13-2023 08:15-0500 Blood Pressure Location Joaquim Noe [facility] 02-13-2023 08:15-0500 Mean blood pressure 76 mm[Hg] Joaquim Noe [facility] 02-13-2023 08:01-0500 Body temperature 97.16 [degF] Joaquim Noe [facility] 02-13-2023 07:55-0500 Respiratory rate 12 /min Joaquim Noe [facility] 02-13-2023 06:10-0500 Mean blood pressure 85 mm[Hg] Joaquim Noe [facility] 02-13-2023 06:09-0500 BP/Pulse Patient Position Joaquim Noe [facility] 02-13-2023 06:09-0500 Mean blood pressure 87 mm[Hg] Joaquim Noe [facility] 02-13-2023 06:09-0500 Heart rate 60 /min Joaquim Noe [facility] 02-13-2023 06:08-0500 Body temperature 97.7 [degF] Joaquim Noe [facility] 02-03-2023 14:15-0500 Body height 162.56 cm Ashish Chester Other [facility] Other 02-03-2023 14:15-0500 Body temperature 97.4 [degF] Ashish Chester Other [facility] Other 02-03-2023 14:15-0500 Diastolic blood pressure 58 mm[Hg] Ashish Chester Other [facility] Other 02-03-2023 14:15-0500 Systolic blood pressure 103 mm[Hg] Ashish Chester Other [facility] Other 12-24-2022 18:02-0400 Hourly Rounding Joaquim Noe [facility] 12-24-2022 18:02-0400 Promise to Return Joaquim Noe [facility] 12-24-2022 18:00-0400 Blood Pressure Location Joaquim Noe [facility] 12-24-2022 18:00-0400 Body temperature 98.06 [degF] Joaquim Noe [facility] 12-24-2022 18:00-0400 Diastolic blood pressure 69 mm[Hg] Joaquim Noe [facility] 12-24-2022 18:00-0400 Heart rate 95 /min Joaquim Noe [facility] 12-24-2022 18:00-0400 Mean blood pressure 82 mm[Hg] Joaquim Noe [facility] 12-24-2022 18:00-0400 Respiratory rate 18 /min Joaquim Noe [facility] 12-24-2022 18:00-0400 SaO2% (BldA) [Mass fraction] 97 % Joaquim Noe [facility] 12-24-2022 18:00-0400 Systolic blood pressure 108 mm[Hg] Joaquim Noe [facility] 12-24-2022 17:41-0400 Hourly Rounding Joaquim Noe [facility] 12-24-2022 17:41-0400 Promise to Return Joaquim Noe [facility] 12-24-2022 16:00-0400 Hourly Rounding Joaquim Noe [facility] 12-24-2022 16:00-0400 Promise to Return Joaquim Noe [facility] 12-24-2022 15:43-0400 Heart rate 67 /min Joaquim Noe [facility] 12-24-2022 15:43-0400 SaO2% (BldA) [Mass fraction] 96 % Joaquim Noe [facility] 12-24-2022 15:42-0400 Body temperature 97.7 [degF] Joaquim Noe [facility] 12-24-2022 15:42-0400 Diastolic blood pressure 67 mm[Hg] Joaquim Noe [facility] 12-24-2022 15:42-0400 Mean blood pressure 87 mm[Hg] Joaquim Noe [facility] 12-24-2022 15:42-0400 Systolic blood pressure 127 mm[Hg] Joaquim Noe [facility] 12-24-2022 13:06-0400 gluc 194 mg/dL Joaquim Noe [facility] 12-24-2022 11:37-0400 Heart rate 67 /min Joaquim Noe [facility] 12-24-2022 11:37-0400 SaO2% (BldA) [Mass fraction] 95 % Joaquim Noe [facility] 12-24-2022 11:37-0400 Diastolic blood pressure 49 mm[Hg] Joaquim Noe [facility] 12-24-2022 11:37-0400 Mean blood pressure 67 mm[Hg] Joaquim Noe [facility] 12-24-2022 11:37-0400 Systolic blood pressure 103 mm[Hg] Joaquim Noe [facility] 12-24-2022 11:37-0400 Body temperature 97.7 [degF] Joaquim Noe [facility] 12-24-2022 07:39-0400 Mean blood pressure 76 mm[Hg] Joaquim Noe [facility] 12-24-2022 07:37-0400 Body temperature 97.7 [degF] Joaquim Noe [facility] 12-24-2022 02:43-0400 Respiratory rate 16 /min Joaquim Flipzu [facility] 12-24-2022 00:01-0400 Body temperature 99.68 [degF] Joaquim Flipzu [facility] 12-24-2022 00:01-0400 Respiratory rate 16 /min Joaquim Flipzu [facility] 12-23-2022 12:00-0400 Blood Pressure Location Joaquim Flipzu [facility] 12-23-2022 12:00-0400 Body temperature 97.34 [degF] Joaquim Flipzu [facility] 12-23-2022 12:00-0400 Heart rate 62 /min Joaquim Flipzu [facility] 12-22-2022 23:45-0400 gluc 123 mg/dL Joaquim Flipzu [facility] 12-22-2022 20:10-0400 Blood Pressure Location Joaquim Flipzu [facility] 12-22-2022 20:10-0400 Mean blood pressure 88 mm[Hg] Joaquim Flipzu [facility] 12-22-2022 12:37-0400 gluc 126 mg/dL Joaquim Flipzu [facility] 12-21-2022 20:00-0400 Mean blood pressure 67 mm[Hg] Joaquim Flipzu [facility] 12-20-2022 19:15-0400 Respiratory rate 16 /min Joaquim Flipzu [facility] 12-20-2022 19:00-0400 Respiratory rate 18 /min Joaquim Flipzu [facility] 12-20-2022 18:45-0400 Respiratory rate 11 /min Joaquim Noe [facility] 12-20-2022 16:21-0400 Heart rate 75 /min Joaqumi Neo [facility] 12-19-2022 17:25-0400 Heart rate 66 /min Joaquim Noe [facility] 12-19-2022 16:52-0400 Diastolic blood pressure 46 mm[Hg] Joaquim Noe [facility] 12-19-2022 16:52-0400 Systolic blood pressure 105 mm[Hg] Joaquim Noe [facility] 11-29-2022 12:19-0400 Hourly Rounding Reymundo ARGUETASLIN [facility] 11-29-2022 12:19-0400 Promise to Return Reymundoelver ARGUETASLIN [facility] 11-29-2022 11:43-0400 Hourly Rounding Reymundoelver ARGUETASLIN [facility] 11-29-2022 11:43-0400 Promise to Return Reymundo JULIAN [facility] 11-29-2022 11:25-0400 Heart rate 79 /min Reymundo JULIAN [facility] 11-29-2022 11:25-0400 SaO2% (BldA) [Mass fraction] 92 % Reymundo JULIAN [facility] 11-29-2022 11:22-0400 Diastolic blood pressure 73 mm[Hg] Reymundo JULIAN [facility] 11-29-2022 11:22-0400 Mean blood pressure 97 mm[Hg] Reymundo JULIAN [facility] 11-29-2022 11:22-0400 Systolic blood pressure 143 mm[Hg] Reymundoelver ARGUETASLIN [facility] 11-29-2022 11:22-0400 Body temperature 98.06 [degF] Reymundoelver ARGUETASLIN [facility] 11-29-2022 10:33-0400 Hourly Rounding Reymundo ARGUETASLIN [facility] 11-29-2022 10:33-0400 Promise to Return Reymundoelver ARGUETASLIN [facility] 11-29-2022 09:40-0400 Diastolic blood pressure 75 mm[Hg] Reymundoelver ARGUETASLIN [facility] 11-29-2022 09:40-0400 Systolic blood pressure 160 mm[Hg] Reymundoelver ARGUETASLIN [facility] 11-29-2022 08:17-0400 Heart rate 83 /min Reymundoelver ARGUETASLIN [facility] 11-29-2022 08:17-0400 SaO2% (BldA) [Mass fraction] 93 % Reymundoelver ARGUETASLIN [facility] 11-29-2022 08:17-0400 Diastolic blood pressure 75 mm[Hg] Reymundoelver ARGUETASLIN [facility] 11-29-2022 08:17-0400 Mean blood pressure 104 mm[Hg] Reymundo JULIAN [facility] 11-29-2022 08:17-0400 Systolic blood pressure 160 mm[Hg] Reymundo JULIAN [facility] 11-29-2022 08:17-0400 Body temperature 97.88 [degF] Reymundoelver ARGUETASLIN [facility] 11-28-2022 23:45-0400 Blood Pressure Location Reymundoelver ARGUETASLIN [facility] 11-28-2022 23:45-0400 Body temperature 97.7 [degF] Reymundoelver ARGUETASLIN [facility] 11-28-2022 23:45-0400 Heart rate 68 /min Reymundoelver ARGUETASLIN [facility] 11-28-2022 23:45-0400 SaO2% (BldA) [Mass fraction] 95 % Reymundo ARGUETASLIN [facility] 11-28-2022 15:54-0400 Mean blood pressure 93 mm[Hg] Reymundoelver ARGUETASLIN [facility] 11-28-2022 15:54-0400 Body temperature 100.22 [degF] Reymundoelver ARGUETASLIN [facility] 11-28-2022 08:40-0400 Blood Pressure Location Reymundoelver ARGUETASLIN [facility] 11-28-2022 08:40-0400 Body temperature 97.88 [degF] Reymundoelver JORDAN [facility] 11-28-2022 08:40-0400 Mean blood pressure 86 mm[Hg] Reymundo ARGUETASLIN [facility] 11-28-2022 08:40-0400 Respiratory rate 16 /min Reymundoelver ARGUETASLIN [facility] 11-28-2022 00:15-0400 Blood Pressure Location Reymundoelver ARGUETASLIN [facility] 11-28-2022 00:15-0400 Respiratory rate 16 /min Reymundoelver ARGUETASLIN [facility] 11-27-2022 16:43-0400 Mean blood pressure 90 mm[Hg] Reymundoelver ARGUETASLIN [facility] 11-27-2022 11:40-0400 Mean blood pressure 79 mm[Hg] Reymundo JULIAN [facility] 11-27-2022 01:48-0400 Heart rate 18 /min Reymundo JULIAN [facility] 11-26-2022 16:27-0400 Heart rate 78 /min Reymundo JULIAN [facility] 11-26-2022 16:27-0400 Respiratory rate 18 /min Reymundo JULIAN [facility] 11-26-2022 11:43-0400 Heart rate 80 /min Reymundo JULIAN [facility] 11-25-2022 17:25-0400 Respiratory rate 13 /min Reymundo JULIAN [facility] 11-25-2022 17:00-0400 Respiratory rate 11 /min Reymundo JULIAN [facility] 11-25-2022 05:43-0400 gluc 98 mg/dL Reymundo JULIAN [facility] 11-24-2022 19:24-0400 gluc 115 mg/dL Reymundo JULIAN [facility] 11-24-2022 19:00-0400 Heart rate 70 /min Reymundo JULIAN [facility] 11-24-2022 12:25-0400 gluc 149 mg/dL Reymundo JULIAN [facility] 10-02-2022 15:23-0400 Body temperature 97.88 [degF] Raul Arnold [facility] 10-02-2022 15:23-0400 Diastolic blood pressure 80 mm[Hg] Raul Arnold [facility] 10-02-2022 15:23-0400 Heart rate 79 /min Raul Arnold [facility] 10-02-2022 15:23-0400 Respiratory rate 16 /min Raul Arnold [facility] 10-02-2022 15:23-0400 SaO2% (BldA) [Mass fraction] 100 % Raul Arnold [facility] 10-02-2022 15:23-0400 Systolic blood pressure 133 mm[Hg] Raul Arnold [facility] 09-04-2022 21:30-0400 Diastolic blood pressure 72 mm[Hg] Hari Michelle [facility] 09-04-2022 21:30-0400 Heart rate 60 /min Hari Michelle [facility] 09-04-2022 21:30-0400 Mean blood pressure 100 mm[Hg] Hari Michelle [facility] 09-04-2022 21:30-0400 Respiratory rate 15 /min Hari Michelle [facility] 09-04-2022 21:30-0400 SaO2% (BldA) [Mass fraction] 97 % Hari Michelle [facility] 09-04-2022 21:30-0400 Systolic blood pressure 155 mm[Hg] Hari Michelle [facility] 09-04-2022 20:40-0400 Body temperature 97.52 [degF] Hari Michelle [facility] 09-04-2022 20:40-0400 Diastolic blood pressure 80 mm[Hg] Hari Michelle [facility] 09-04-2022 20:40-0400 Heart rate 67 /min Hari Michelle [facility] 09-04-2022 20:40-0400 Respiratory rate 17 /min Hari Michelle [facility] 09-04-2022 20:40-0400 SaO2% (BldA) [Mass fraction] 95 % Hari Michelle [facility] 09-04-2022 20:40-0400 Systolic blood pressure 176 mm[Hg] Hari Michelle [facility] 09-04-2022 20:25-0400 Body temperature 97.52 [degF] Hari Michelle [facility] 09-04-2022 20:25-0400 Diastolic blood pressure 75 mm[Hg] Marcelo Link [facility] 09-04-2022 20:25-0400 Heart rate 62 /min Hari Michelle [facility] 09-04-2022 20:25-0400 Respiratory rate 18 /min Hari Michelle [facility] 09-04-2022 20:25-0400 SaO2% (BldA) [Mass fraction] 99 % Hari Michelle [facility] 09-04-2022 20:25-0400 Systolic blood pressure 188 mm[Hg] Hari Michelle [facility] 09-04-2022 19:04-0400 Body temperature 97.88 [degF] Marcelo Link [facility] 09-04-2022 19:04-0400 Diastolic blood pressure 58 mm[Hg] Marcelo Link [facility] 09-04-2022 19:04-0400 Heart rate 63 /min Marcelo Link [facility] 09-04-2022 19:04-0400 Respiratory rate 15 /min Marcelo Link [facility] 09-04-2022 19:04-0400 SaO2% (BldA) [Mass fraction] 98 % Marcelo Link [facility] 09-04-2022 19:04-0400 Systolic blood pressure 139 mm[Hg] Marcelo Link [facility] 09-04-2022 18:32-0400 Body temperature 98.06 [degF] Marcelo Link [facility] 09-04-2022 18:32-0400 Diastolic blood pressure 64 mm[Hg] Marcelo Link [facility] 09-04-2022 18:32-0400 Heart rate 62 /min Marcelo Link [facility] 09-04-2022 18:32-0400 Mean blood pressure 92 mm[Hg] Marcelo Link [facility] 09-04-2022 18:32-0400 Respiratory rate 16 /min Marcelo Link [facility] 09-04-2022 18:32-0400 SaO2% (BldA) [Mass fraction] 97 % Marcelo Link [facility] 09-04-2022 18:32-0400 Systolic blood pressure 149 mm[Hg] Marcelo Link [facility] 09-04-2022 17:15-0400 Body temperature 97.7 [degF] Marcelo Link [facility] 09-04-2022 17:00-0400 Heart rate 64 /min Marcelo Link [facility] 09-04-2022 17:00-0400 Mean blood pressure 96 mm[Hg] Marcelo Link [facility] 09-04-2022 17:00-0400 Systolic blood pressure 137 mm[Hg] Marcelo Link [facility] 09-04-2022 15:10-0400 gluc 241 mg/dL Marcelo Link [facility] 09-04-2022 15:10-0400 gluc Marcelo Link [facility] 09-04-2022 15:00-0400 Hourly Rounding Marcelo Link [facility] 09-04-2022 15:00-0400 Promise to Return Marcelo Link [facility] 08-09-2022 14:34-0400 Body temperature 97.7 [degF] Raul Clayton [facility] 08-09-2022 14:29-0400 Diastolic blood pressure 64 mm[Hg] Raul Arnold [facility] 08-09-2022 14:29-0400 Heart rate 60 /min Raul Clayton [facility] 08-09-2022 14:29-0400 Mean blood pressure 88 mm[Hg] Raul Arnold [facility] 08-09-2022 14:29-0400 Respiratory rate 14 /min Raul Arnold [facility] 08-09-2022 14:29-0400 SaO2% (BldA) [Mass fraction] 95 % Raul Arnold [facility] 08-09-2022 14:29-0400 Systolic blood pressure 136 mm[Hg] Raul Arnold [facility] 08-09-2022 13:45-0400 Diastolic blood pressure 59 mm[Hg] Raul Clayton [facility] 08-09-2022 13:45-0400 Heart rate 62 /min Raul Clayton [facility] 08-09-2022 13:45-0400 Mean blood pressure 83 mm[Hg] Raul Clayton [facility] 08-09-2022 13:45-0400 Respiratory rate 10 /min Raul Clayton [facility] 08-09-2022 13:45-0400 SaO2% (BldA) [Mass fraction] 96 % Raul Clayton [facility] 08-09-2022 13:45-0400 Systolic blood pressure 130 mm[Hg] Raul Clayton [facility] 08-09-2022 13:32-0400 Body temperature 97.52 [degF] Raul Clayton [facility] 08-09-2022 13:32-0400 Diastolic blood pressure 57 mm[Hg] Raul Clayton [facility] 08-09-2022 13:32-0400 Heart rate 66 /min Raul Clayton [facility] 08-09-2022 13:32-0400 Respiratory rate 18 /min Raul Clayton [facility] 08-09-2022 13:32-0400 SaO2% (BldA) [Mass fraction] 95 % Raul Clayton [facility] 08-09-2022 13:32-0400 Systolic blood pressure 130 mm[Hg] Raul Clayton [facility] 08-09-2022 12:19-0400 gluc 212 mg/dL Raul Clayton [facility] 08-09-2022 12:19-0400 gluc Raul Arnold [facility] 08-09-2022 12:17-0400 Body temperature 97.88 [degF] Raul Arnold [facility] 08-09-2022 12:17-0400 Heart rate 74 /min Raul Arnold [facility] 08-09-2022 12:17-0400 Respiratory rate 16 /min Raul Arnold [facility] 07-18-2022 22:45-0400 Body temperature 98.06 [degF] Kaylinn Dokken [facility] 07-18-2022 22:45-0400 Diastolic blood pressure 56 mm[Hg] Kaylinn Dokken [facility] 07-18-2022 22:45-0400 Heart rate 80 /min Kaylinn Dokken [facility] 07-18-2022 22:45-0400 Respiratory rate 18 /min Kaylinn Dokken [facility] 07-18-2022 22:45-0400 SaO2% (BldA) [Mass fraction] 97 % Kaylinn Dokken [facility] 07-18-2022 22:45-0400 Systolic blood pressure 130 mm[Hg] Kaylinn Dokken [facility] 07-18-2022 22:30-0400 Body temperature 98.06 [degF] Kaylinn Dokken [facility] 07-18-2022 22:30-0400 Diastolic blood pressure 58 mm[Hg] Kaylinn Dokken [facility] 07-18-2022 22:30-0400 Heart rate 85 /min Ty Savageen [facility] 07-18-2022 22:30-0400 Respiratory rate 16 /min Jairinn Dokken [facility] 07-18-2022 22:30-0400 SaO2% (BldA) [Mass fraction] 95 % Yulyn Husseinen [facility] 07-18-2022 22:30-0400 Systolic blood pressure 101 mm[Hg] Yulyn Burton [facility] 07-18-2022 16:15-0400 Diastolic blood pressure 84 mm[Hg] [facility] 07-18-2022 16:15-0400 Heart rate 90 /min [facility] 07-18-2022 16:15-0400 Respiratory rate 16 /min [facility] 07-18-2022 16:15-0400 SaO2% (BldA) [Mass fraction] 98 % [facility] 07-18-2022 16:15-0400 Systolic blood pressure 135 mm[Hg] [facility] 04-10-2022 11:05-0500 Diastolic blood pressure 83 mm[Hg] Callahan SALAM [facility] 04-10-2022 11:05-0500 Mean blood pressure 106 mm[Hg] Callahan SALAM [facility] 04-10-2022 11:05-0500 Systolic blood pressure 151 mm[Hg] Callahan SALAM [facility] 04-10-2022 11:02-0500 Blood Pressure Location Callahan SALAM [facility] 04-10-2022 11:02-0500 Diastolic blood pressure 86 mm[Hg] Callahan SALAM [facility] 04-10-2022 11:02-0500 Heart rate 70 /min Callahan SALAM [facility] 04-10-2022 11:02-0500 Respiratory rate 16 /min Callahan SALAM [facility] 04-10-2022 11:02-0500 SaO2% (BldA) [Mass fraction] 98 % Callahan SALAM [facility] 04-10-2022 11:02-0500 Systolic blood pressure 142 mm[Hg] Callahan SALAM [facility] 04-03-2022 18:00-0500 Diastolic blood pressure 54 mm[Hg] Raul Arnold [facility] 04-03-2022 18:00-0500 Heart rate 66 /min Raul Arnold [facility] 04-03-2022 18:00-0500 Mean blood pressure 78 mm[Hg] Raul Arnold [facility] 04-03-2022 18:00-0500 Respiratory rate 11 /min Raul Arnold [facility] 04-03-2022 18:00-0500 SaO2% (BldA) [Mass fraction] 92 % Raul Arnold [facility] 04-03-2022 18:00-0500 Systolic blood pressure 126 mm[Hg] Raul Arnold [facility] 04-03-2022 16:51-0500 Body temperature 98.24 [degF] Raul Arnold [facility] 04-03-2022 16:51-0500 Diastolic blood pressure 72 mm[Hg] Raul Arnold [facility] 04-03-2022 16:51-0500 Heart rate 72 /min Raul Clayton [facility] 04-03-2022 16:51-0500 Respiratory rate 16 /min Raul Arnold [facility] 04-03-2022 16:51-0500 SaO2% (BldA) [Mass fraction] 99 % Raul Arnold [facility] 04-03-2022 16:51-0500 Systolic blood pressure 120 mm[Hg] Raul Arnold [facility] 04-03-2022 16:36-0500 Body temperature 98.24 [degF] Raul Arnold [facility] 04-03-2022 16:36-0500 Diastolic blood pressure 52 mm[Hg] Raul Arnold [facility] 04-03-2022 16:36-0500 Heart rate 71 /min Raul Arnold [facility] 04-03-2022 16:36-0500 Respiratory rate 16 /min Raul Arnold [facility] 04-03-2022 16:36-0500 SaO2% (BldA) [Mass fraction] 99 % Raul Arnold [facility] 04-03-2022 16:36-0500 Systolic blood pressure 135 mm[Hg] Raul Arnold [facility] 04-02-2022 10:15-0500 Diastolic blood pressure 69 mm[Hg] Brady Marinelli [facility] 04-02-2022 10:15-0500 Heart rate 66 /min Brady Marinelli [facility] 04-02-2022 10:15-0500 Respiratory rate 20 /min Brady Marinelli [facility] 04-02-2022 10:15-0500 SaO2% (BldA) [Mass fraction] 97 % Brady Marinelli [facility] 04-02-2022 10:15-0500 Systolic blood pressure 150 mm[Hg] Brady Marinelli [facility] 04-02-2022 09:44-0500 Body temperature 97.52 [degF] Brady Marinelli [facility] 04-02-2022 09:44-0500 Diastolic blood pressure 81 mm[Hg] Brady Marinelli [facility] 04-02-2022 09:44-0500 Heart rate 64 /min Brady Marinelli [facility] 04-02-2022 09:44-0500 Respiratory rate 20 /min Brady Marinelli [facility] 04-02-2022 09:44-0500 SaO2% (BldA) [Mass fraction] 95 % Brady Marinelli [facility] 04-02-2022 09:44-0500 Systolic blood pressure 138 mm[Hg] Brady Marinelli [facility] 03-13-2022 19:11-0500 Diastolic blood pressure 45 mm[Hg] Raul Clayton [facility] 03-13-2022 19:11-0500 Heart rate 65 /min Raul Arnold [facility] 03-13-2022 19:11-0500 Mean blood pressure 74 mm[Hg] Raul Arnold [facility] 03-13-2022 19:11-0500 Respiratory rate 18 /min Raul Arnold [facility] 03-13-2022 19:11-0500 SaO2% (BldA) [Mass fraction] 99 % Raul Clayton [facility] 03-13-2022 19:11-0500 Systolic blood pressure 133 mm[Hg] Raul Clayton [facility] 03-13-2022 18:00-0500 Diastolic blood pressure 56 mm[Hg] Raul Clayton [facility] 03-13-2022 18:00-0500 Heart rate 66 /min Raul Clayton [facility] 03-13-2022 18:00-0500 SaO2% (BldA) [Mass fraction] 91 % Raul Clayton [facility] 03-13-2022 18:00-0500 Systolic blood pressure 171 mm[Hg] Raul Clayton [facility] 03-13-2022 16:38-0500 Body temperature 97.52 [degF] Raul Clayton [facility] 03-13-2022 16:38-0500 Diastolic blood pressure 61 mm[Hg] Raul Clayton [facility] 03-13-2022 16:38-0500 Heart rate 67 /min Raul Clayton [facility] 03-13-2022 16:38-0500 Mean blood pressure 94 mm[Hg] Raul Clayton [facility] 03-13-2022 16:38-0500 Respiratory rate 18 /min Raul Clayton [facility] 03-13-2022 16:38-0500 SaO2% (BldA) [Mass fraction] 95 % Raul Clayton [facility] 03-13-2022 16:38-0500 Systolic blood pressure 160 mm[Hg] Raul Arnold [facility] 02-08-2022 22:25-0500 Diastolic blood pressure 77 mm[Hg] Orquideaylinn Dokken [facility] 02-08-2022 22:25-0500 Heart rate 79 /min Jairinn Dokken [facility] 02-08-2022 22:25-0500 Respiratory rate 18 /min Yulyn Dokken [facility] 02-08-2022 22:25-0500 SaO2% (BldA) [Mass fraction] 96 % Yulyn Dokken [facility] 02-08-2022 22:25-0500 Systolic blood pressure 185 mm[Hg] Orquideaylinn Dokken [facility] 02-08-2022 21:51-0500 Diastolic blood pressure 79 mm[Hg] Orquideaylinn Dokken [facility] 02-08-2022 21:51-0500 Heart rate 78 /min Yulyn Dokken [facility] 02-08-2022 21:51-0500 Hourly Rounding Yulyn Dokken [facility] 02-08-2022 21:51-0500 Nursing Progress Note Reason Other: Pt mediciated per orders. Call light in reach. Denies any needs at this time. Jairinn Dokken [facility] 02-08-2022 21:51-0500 Respiratory rate 18 /min Jairinn Dokken [facility] 02-08-2022 21:51-0500 SaO2% (BldA) [Mass fraction] 96 % Yulyn Dokken [facility] 02-08-2022 21:51-0500 Systolic blood pressure 176 mm[Hg] Jairinn Dokken [facility] 02-08-2022 21:15-0500 Diastolic blood pressure 66 mm[Hg] Jairinn Dokken [facility] 02-08-2022 21:15-0500 Heart rate 74 /min Yulyn kken [facility] 02-08-2022 21:15-0500 Hourly Rounding Yulyn kkjohnny [facility] 02-08-2022 21:15-0500 Nursing Progress Note Reason Other: UA obtained and sent to lab. Ty Manrique [facility] 02-08-2022 21:15-0500 Respiratory rate 18 /min Ty Duvallkken [facility] 02-08-2022 21:15-0500 SaO2% (BldA) [Mass fraction] 96 % Yulyn Dokken [facility] 02-08-2022 21:15-0500 Systolic blood pressure 154 mm[Hg] Jairinn Dokken [facility] 02-08-2022 20:30-0500 Body temperature 98.24 [degF] Jairinn Dokken [facility] 02-03-2022 05:00-0500 Body temperature 98.24 [degF] Vadim Naseem [facility] 02-03-2022 05:00-0500 Diastolic blood pressure 66 mm[Hg] Vadim Naseem [facility] 02-03-2022 05:00-0500 Heart rate 63 /min Vadim Naseem [facility] 02-03-2022 05:00-0500 Mean blood pressure 95 mm[Hg] Vadim Naseem [facility] 02-03-2022 05:00-0500 Respiratory rate 13 /min Vadim Naseem [facility] 02-03-2022 05:00-0500 SaO2% (BldA) [Mass fraction] 90 % Vadim Naseem [facility] 02-03-2022 05:00-0500 Systolic blood pressure 153 mm[Hg] Vadim Naseem [facility] 02-03-2022 04:00-0500 Body temperature 98.6 [degF] Vadim Naseem [facility] 02-03-2022 04:00-0500 Diastolic blood pressure 69 mm[Hg] Vadim Naseem [facility] 02-03-2022 04:00-0500 Mean blood pressure 99 mm[Hg] Vadim Naseem [facility] 02-03-2022 04:00-0500 Respiratory rate 14 /min Vadim Naseem [facility] 02-03-2022 04:00-0500 SaO2% (BldA) [Mass fraction] 92 % Vadim Naseem [facility] 02-03-2022 04:00-0500 Systolic blood pressure 159 mm[Hg] Vadim Naseem [facility] 02-03-2022 03:00-0500 Mean blood pressure 100 mm[Hg] Vadim Naseem [facility] 02-03-2022 03:00-0500 Respiratory rate 39 /min Vadim Naseem [facility] 02-03-2022 03:00-0500 SaO2% (BldA) [Mass fraction] 91 % Vadim Gusman [facility] 02-03-2022 03:00-0500 Systolic blood pressure 163 mm[Hg] Vadim Gusman [facility] 02-03-2022 01:14-0500 gluc 186 mg/dL Vadim Gusman [facility] 02-03-2022 01:14-0500 gluc Vadim Gusman [facility] 02-03-2022 01:10-0500 Heart rate 70 /min Vadim Gusman [facility] 02-03-2022 01:10-0500 Respiratory rate 20 /min Vadim Gusman [facility] 02-02-2022 14:00-0400 Blood Pressure Location [facility] 02-02-2022 14:00-0400 BP/Pulse Patient Position [facility] 02-02-2022 14:00-0400 Respiratory rate 18 /min [facility] 02-02-2022 13:00-0400 Hourly Rounding [facility] 02-02-2022 12:33-0400 Hourly Rounding [facility] 02-02-2022 12:33-0400 Promise to Return [facility] 02-02-2022 11:09-0400 Body temperature 97.88 [degF] [facility] 02-02-2022 11:09-0400 Diastolic blood pressure 75 mm[Hg] [facility] 02-02-2022 11:09-0400 Heart rate 65 /min [facility] 02-02-2022 11:09-0400 Mean blood pressure 101 mm[Hg] [facility] 02-02-2022 11:09-0400 SaO2% (BldA) [Mass fraction] 94 % [facility] 02-02-2022 11:09-0400 Systolic blood pressure 154 mm[Hg] [facility] 02-02-2022 11:09-0400 Respiratory rate 20 /min [facility] 02-02-2022 11:00-0400 Hourly Rounding [facility] 02-02-2022 08:58-0400 Promise to Return [facility] 02-02-2022 07:29-0400 Body temperature 97.88 [degF] [facility] 02-02-2022 07:29-0400 Diastolic blood pressure 65 mm[Hg] [facility] 02-02-2022 07:29-0400 Heart rate 69 /min [facility] 02-02-2022 07:29-0400 Mean blood pressure 95 mm[Hg] [facility] 02-02-2022 07:29-0400 SaO2% (BldA) [Mass fraction] 92 % [facility] 02-02-2022 07:29-0400 Systolic blood pressure 153 mm[Hg] [facility] 02-02-2022 06:21-0400 Promise to Return [facility] 02-02-2022 02:05-0400 Body temperature 97.7 [degF] [facility] 02-02-2022 02:05-0400 Diastolic blood pressure 62 mm[Hg] [facility] 02-02-2022 02:05-0400 Heart rate 73 /min [facility] 02-02-2022 02:05-0400 Mean blood pressure 78 mm[Hg] [facility] 02-02-2022 02:05-0400 SaO2% (BldA) [Mass fraction] 93 % [facility] 02-02-2022 02:05-0400 Systolic blood pressure 112 mm[Hg] [facility] 02-01-2022 21:24-0400 gluc 261 mg/dL [facility] 02-01-2022 19:35-0400 Blood Pressure Location [facility] 02-01-2022 19:35-0400 BP/Pulse Patient Position [facility] 02-01-2022 19:35-0400 Respiratory rate 16 /min [facility] 02-01-2022 16:59-0400 gluc 225 mg/dL [facility] 02-01-2022 16:11-0400 Blood Pressure Location [facility] 02-01-2022 16:11-0400 BP/Pulse Patient Position [facility] 02-01-2022 11:11-0400 Mean blood pressure 123 mm[Hg] [facility] 02-01-2022 08:33-0400 Heart rate 78 /min [facility] 02-01-2022 08:08-0400 gluc 119 mg/dL [facility] 02-01-2022 05:20-0400 Heart rate 88 /min [facility] 02-01-2022 03:08-0400 Mean blood pressure 82 mm[Hg] [facility] 02-01-2022 01:01-0400 Mean blood pressure 88 mm[Hg] [facility] 01-31-2022 21:13-0400 Heart rate 83 /min [facility] 01-30-2022 14:00-0400 Mean blood [facility] 88 mm[facility]Hg[facility] 01-30-2022 12:19-0400 Hourly Rounding [facility] 01-30-2022 12:19-0400 [facility] 01-30-2022 12:00-0400 Body temperature 98.06 [degF] [facility] 01-30-2022 12:00-0400 Diastolic blood pressure 72 mm[Hg] [facility] 01-30-[facility]22 12:00-0400 Heart rate 71 /min [facility] 01-30-2022 12:00-0400 SaO2% (BldA) [Mass fraction] 96 % [facility] 01-30-2022 12:00-0400 Systolic blood pressure 122 mm[Hg] [facility] 01-30-2022 11:19-0400 [facility] 01-30-2022 11:19-0400 Promise to Return [facility] 01-30-2022 10:48-0400 [facility] 01-30-2022 10:48-0400 [facility] 01-30-2022 08:00-0400 Body temperature 97.52 [degF] [facility] 01-30-2022 08:00-0400 Diastolic blood pressure 49 mm[Hg] [facility] 01-30-2022 08:00-0400 Heart rate 79 /min [facility] 01-30-2022 08:00-0400 SaO2% (BldA) [Mass fraction] 91 % [facility] 01-30-2022 08:00-0400 Systolic blood pressure 132 mm[Hg] [facility] 01-30-2022 06:00-0400 Diastolic blood pressure 46 mm[Hg] [facility] 01-30-2022 06:00-0400 Heart rate 64 /min [facility] 01-30-2022 06:00-0400 Mean blood pressure 70 mm[Hg[facility] 01-30-2022 06:00-0400 Respiratory rate 19 /min [facility] 01-30-2022 06:00-0400 SaO2% (BldA) [Mass fraction] 94 % [facility] 01-30-2022 06:00-0400 Systolic blood pressure 110 mm[Hg] [facility] 01-30-2022 05:00-0400 Respiratory rate 14 /min [facility] 01-30-2022 04:00-0400 Body temperature 97.88 [degF] [facility] 01-30-2022 04:00-0400 Mean blood pressure 73 mm[Hg] [facility] 01-30-2022 00:00-0400 Body temperature 97.52 [degF] [facility] 01-29-2022 19:00-0400 Body temperature 98.06 [degF] [facility] 01-29-2022 16:31-0400 gluc 154 mg[facility]dL [facility] 01-29-2022 11:00-0400 gluc 211 mg/dL [facility] 01-29-2022 08:00-0400 gluc 130 mg/dL [facility] 01-29-2022 07:00-0400 [facility] 01-28-2022 19:00-0400 Respiratory rate 14 /min [facility] 01-28-2022 18:14-0400 Heart rate 73 /min [facility] 01-28-2022 18:14-0400 Respiratory rate 15 /min [facility] 01-28-2022 17:00-0400 Respiratory rate 18 /min [facility] 01-28-2022 12:01-0400 Heart rate 99 /min Ahmad Hailey [facility] 01-27-2022 17:31-0400 Diastolic blood pressure 60 mm[Hg] [facility] 01-27-2022 17:31-0400 Heart rate 63 /min [facility] 01-27-2022 17:31-0400 Mean blood pressure 99 mm[Hg] [facility] 01-27-2022 17:31-0400 Respiratory rate 20 /min [facility] 01-27-2022 17:31-0400 SaO2% (BldA) [Mass fraction] 97 % [facility] 01-27-2022 17:31-0400 Systolic blood pressure 177 mm[Hg] [facility] 01-27-2022 16:59-0400 Diastolic blood pressure 81 mm[Hg] [facility] 01-27-2022 16:59-0400 Heart rate 68 /min [facility] 01-27-2022 16:59-0400 Mean blood pressure 117 mm[Hg] [facility] 01-27-2022 16:59-0400 Respiratory rate 19 /min [facility] 01-27-2022 16:59-0400 SaO2% (BldA) [Mass fraction] 97 % [facility] 01-27-2022 16:59-0400 Systolic blood pressure 190 mm[Hg] [facility] 01-27-2022 16:00-0400 Diastolic blood pressure 73 mm[Hg] [facility] 01-27-2022 16:00-0400 Mean blood pressure 106 mm[Hg] [facility] 01-27-2022 16:00-0400 SaO2% (BldA) [Mass fraction] 99 % [facility] 01-27-2022 16:00-0400 Systolic blood pressure 171 mm[Hg] [facility] 01-27-2022 14:45-0400 Body temperature 97.88 [degF] [facility] 01-27-2022 14:45-0400 Heart rate 65 /min [facility] 11-17-2021 19:35-0400 Diastolic blood pressure 83 mm[Hg] Brady Godfreye [facility] 11-17-2021 19:35-0400 Heart rate 73 /min Brady Godfreye [facility] 11-17-2021 19:35-0400 Hourly Rounding Brady Godfreye [facility] 11-17-2021 19:35-0400 Respiratory rate 18 /min Brady Godfreye [facility] 11-17-2021 19:35-0400 SaO2% (BldA) [Mass fraction] 94 % Brady Yves [facility] 11-17-2021 19:35-0400 Systolic blood pressure 186 mm[Hg] Brady Yves [facility] 11-17-2021 18:28-0400 Diastolic blood pressure 59 mm[Hg] Brady Yves [facility] 11-17-2021 18:28-0400 Heart rate 69 /min Brady Yves [facility] 11-17-2021 18:28-0400 Mean blood pressure 96 mm[Hg] Brady Yves [facility] 11-17-2021 18:28-0400 Respiratory rate 14 /min Brady Yves [facility] 11-17-2021 18:28-0400 SaO2% (BldA) [Mass fraction] 93 % Brady Yves [facility] 11-17-2021 18:28-0400 Systolic blood pressure 171 mm[Hg] Brady Marinelli [facility] 11-17-2021 17:30-0400 Body temperature 97.88 [degF] Brady Marinelli [facility] 11-17-2021 17:30-0400 Diastolic blood pressure 75 mm[Hg] Brady Marinelli [facility] 11-17-2021 17:30-0400 Heart rate 78 /min Brady Marinelli [facility] 11-17-2021 17:30-0400 Respiratory rate 20 /min Brady Marinelli [facility] 11-17-2021 17:30-0400 SaO2% (BldA) [Mass fraction] 95 % Brady Marinelli [facility] 11-17-2021 17:30-0400 Systolic blood pressure 144 mm[Hg] Brady Marinelli [facility] Encounters Encounter Date Encounter Type Care Provider Facility Start: 03-12-2023 End: 03-27-2023 Pre-admission assessment Joaquim Noe [facility] Start: 03-03-2023 End: 03-03-2023 ambulatory Ashish Chester Other [facility] Other Start: 03-03-2023 Office outpatient vi sit 25 minutes Ashish Chester [facility] Infectious Disease Start: 02-13-2023 End: 02-13-2023 ambulatory Joaquim Noe Facility:[facility] Start: 02-13-2023 End: 02-13-2023 Admission to same day surgery center Joaquim Noe [facility] Start: 02-03-2023 End: 02-03-2023 ambulatory Ashish Chester Other [facility] Other Start: 02-03-2023 Office outpatient vi sit 25 minutes Ashish Chester [facility] Infectious Disease Start: 01-13-2023 End: 01-13-2023 ambulatory Ashish Chester Other [facility] Other Start: 01-13-2023 Telephone encounter Ashish Chester [facility] Start: 12-19-2022 End: 12-24-2022 Evaluation and management of inpatient Joaquim Noe Facility:[facility] Start: 12-19-2022 End: 12-24-2022 Evaluation and management of inpatient Joaquim Arnold Hasmukh [facility] Start: 12-08-2022 End: 12-09-2022 ambulatory DO Emely [facility] Facility:CD:[id number] Start: 12-08-2022 End: 12-08-2022 Off-Site [facility] Start: 12-05-2022 ambulatory Brady Marinelli Facility:[facility] Start: 12-03-2022 End: 12-04-2022 ambulatory José MENESES Facility:CD:[id number] Start: 12-03-2022 End: 12-03-2022 [facility]-Site [facility] Start: 11-29-2022 End: 12-19-2022 ambulatory Joaquim Arnold Hasmukh Facility:[facility] Start: 11-24-2022 End: 11-29-2022 Evaluation and management of inpatient Joaquim Arnold Hasmukh Facility:[facility] Start: 11-24-2022 End: 11-29-2022 Evaluation and management of inpatient Reymundo A JULIAN [facility] Start: 10-02-2022 End: 10-02-2022 Emergency department patient visit Raul Arnold Facility:[facility] Start: 10-02-2022 End: 10-02-2022 Emergency department patient visit Raul Arnold [facility] Start: 09-04-2022 End: 09-04-2022 Emergency department patient visit Hari Martinez Facility:[facility] Start: 09-04-2022 End: 09-04-2022 Emergency department patient visit Hari Martinez [facility] Start: 09-04-2022 End: 09-04-2022 Emergency department patient visit Earnest Guevara Facility:[facility] Start: 09-04-2022 End: 09-04-2022 Emergency department patient visit Marcelo Call [facility] Start: 08-09-2022 End: 08-09-2022 Emergency department patient visit Raul Arnold Facility:[facility] Start: 08-09-2022 End: 08-09-2022 Emergency department patient visit Raul Arnold [facility] Start: 07-19-2022 End: 07-19-2022 Emergency department patient visit DO Ty Manrique Facility:[facility] Start: 07-18-2022 End: 07-18-2022 Emergency department patient visit Ty Manrique [facility] Start: 07-18-2022 End: 08-09-2022 ambulatory UNKNOWN PROVIDER Facility:[facility] Start: 07-18-2022 End: 07-18-2022 ambulatory [facility] Start: 07-18-2022 End: 07-18-2022 Emergency department patient visit [facility] Triage, Treat and Transport Comment on above: Arrived Start: 05-09-2022 End: 05-10-2022 ambulatory [facility] Facility:[facility] Start: 04-26-2022 End: 04-26-2022 Emergency department patient visit Raul Arnold Facility:[facility] Start: 04-10-2022 End: 04-11-2022 ambulatory [facility] Facility:[facility] Start: 04-10-2022 End: 04-10-2022 Patient encounter procedure Callahan SALAM [facility] Start: 04-03-2022 End: 04-03-2022 Emergency department patient visit Raul Arnold Facility:[facility] Start: 04-03-2022 End: 04-03-2022 Emergency department patient visit Raul Arnold [facility] Start: 04-02-2022 End: 04-02-2022 Emergency department patient visit Brady Marinelli Facility:[facility] Start: 04-02-2022 End: 04-02-2022 Emergency department patient visit Brady Marinelli [facility] Start: 03-13-2022 End: 03-13-2022 Emergency department patient visit Raul Arnold [facility] Start: 03-05-2022 End: 03-05-2022 Patient encounter procedure Marcelo C Link [facility] Start: 02-13-2022 End: 02-13-2022 Patient encounter procedure Marcelo C Link [facility] Start: 02-08-2022 End: 02-08-2022 Emergency department patient visit Ty Manrique [facility] Start: 02-03-2022 End: 02-03-2022 Emergency department patient visit Vadim Gusman [facility] Start: 01-31-2022 End: 02-02-2022 Observation Kilo HARRIS [facility] Start: 01-29-[address] Chuck lee [facility] Facility: Start: 01-28-2022 End: 01-30-2022 Observation Nomi Glorianichole [facility] Start: 01-28-2022 End: 01-28-2022 Patient encounter procedure Jean Claude Beyerjennifer [facility] Start: 01-27-2022 End: 01-27-2022 Emergency department patient visit Earnest Guevara [facility] Start: 11-17-2021 End: 11-17-2021 Emergency department patient visit Brady Marinelli [facility] Start: 11-09-2021 End: 11-09-2021 Patient encounter procedure Marcelo Call [facility] Start: 11-08-2021 End: 11-14-2021 Pre-admission assessment Marcelo Rivers Link [facility] Start: 10-15-2021 End: 10-15-2021 Patient encounter procedure Marcelo Rivers Link [facility] Procedures Date Procedure Procedure Detail Performing Clinician Start: 02-13-2023 Aspiration of hip joint Joaquim Noe Comment on above: d/t infection Start: 12-20-2022 Repair of fracture of hip by nailing using fluoroscopic guidance Joaquim Noe Start: 11-25-2022 History of hemiarthroplasty of right hip Reymundo JORDAN Start: 05-09-2022 Esophagogastroduodenoscopy Ty eugene Start: 08-16-2020 Arthroscopy of shoulder Marcelo Call Start: 03-11-2019 Excision of mass of neck Marcelo Call Comment on above: REMOVAL OF LEFT NECK MASS Start: 03-10-2018 Arthroplasty of finger Marcelo Call Comment on above: Right basilar thumb tendon interposition al arthroplasty with palmaris longus and 50% FCR graft, extensor tenodesis, splint application, mini-fluoroscopy Start: 10-03-2014 percutaneous pinning left hip Marcelo Call Start: 12-07-2013 left total knee replacement with hardware removal Marcelo Call Start: 06-08-2013 right total knee arthroplasty Marcelo Call Start: 12-14-2012 Right knee surgery Marcelo Call BASILAR ARTHROPLASTY OF THUMB 3 Marcelo Call Comment on above: LEFT BASILAR ARTHROPLASTY OF THUMB 4 Joaquim Hasmukh Comment on above: LEFT Cyst - diagnostic aspiration Marcelo Call Comment on above: Left shoulder blade Extracorporeal shock wave lithotripsy of calculus of kidney Marcelo Call gallbladder removed Marcelo stuart jaw surgery Marcelo Call left knee ORIF Marcelo Call Total abdominal hyst erectomy with bilateral salpingo-oophorectomy Marcelo Call 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 5, 6 Marcelo Call Comment on above: 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 6, 7 Joaquim Noe Comment on above: left benign Plan of Treatment Date Care Activity Detail Author Start: 10-10-2019 Pneumococcal vaccination Pneum ococcal Vaccine(s) (65+ yrs) (1 - PCV) [facility] Start: 10-10-2019 Screening for osteoporosis Bone Dens itometry [facility] Start: 2004 Shingles (RZV) Vacci ne (1 of 2) Shingles (RZV) Vaccine (1 of 2) [facility] Start: 10-10-1999 Cholesterol [Mass/vo lume] in Serum or Plasma Cholesterol [facility] Start: 10-10-1999 Screening for malign ant neoplasm of colon [facility] Start: 1994 Screening for malign ant neoplasm of breast Mammography [facility] Start: 1972 Hepatitis C screening Hepatitis C An tibody [facility] Start: 1972 Tetanus + diphtheria + acellular pertussis vaccine (product) Tdap Booster [facility] Start: 04-11-1955 COVID-19 Vaccine (#1) COVID-19 Vacci ne (#1) [facility] Start: 1954 Screening for malign ant neoplasm of colon [facility] Immunizations Immunization Date Immunization Notes Care Provider Fa melisa 07-30-2020 SARS-CoV-2 (COVID-19 ) mRNA BNT-162b2 vax Jean Claude Akkina [facility] 07-10-2020 SARS-CoV-2 (COVID-19 ) mRNA BNT-162b2 vax Jean Claude Akkina [facility] 03-01-2020 influenza virus vaccine, unspecified formulation Jean Claude Akkina [facility] 03-31-2019 SARS-CoV-2 (COVID-19 ) mRNA BNT-162b2 vax Marcelo Link [facility] 12-30-2018 influenza virus vaccine, unspecified formulation Jean Claude Akkina [facility] 12-30-2017 influenza virus vaccine, unspecified formulation Jean Claude Akkina [facility] 06-10-2013 pneumococcal conjuga te vaccine, 13 valent Jean Clauderocio Schaeffer [facility] 06-10-2013 influenza, seasonal, injectable Marcelo Link [facility] 06-10-2013 pneumococcal polysaccharide vaccine, 23 valent Marcelo Link [facility] 10-30-2010 tetanus toxoid, redu polina diphtheria toxoid, and acellular pertussis vaccine, adsorbed Marcelo Link [facility] Comment on above: Early/Late Reason: O THER: 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 reports that she had an Adacel injection less than 5 years ago. Payers Date Payer Category Payer Medicaid [id number] 2021 Unknown [id number] 1955 Unknown [id number] 1955 Unknown [id number] . [id number] 1954 Unknown [id number] 2.. [id number] 1954 Unknown [id number] 2.16.8 40.1.206785.3.579.2.727 1954 Unknown [id number] 2.16. 40.1.841105.3.579.2.727 1954 Unknown [id number] 2.16.8 40.1.301547.3.579.2.727 1954 Unknown [id number] 2.16.8 40.1.558710.3.579.2.72 1954 Unknown [id number] 2.16.8 40.1.996788.3.579.2.72 1954 Unknown [id number] 2.16.8 40.1.024723.3.579.2. 1954 Unknown [id number] 2.16.8 40.1.820894.3.579.2. 1954 Unknown [id number] 2.16.8 40.1.165002.3.579.2. 1954 Unknown [id number] 2.16.8 40.1.707809.3.579.2. 1954 Unknown [id number] 2.16.8 40.1.674117.3.579.2. 1954 Unknown [id number] 2.16.8 40.1.603225.3.579.2. 1954 Unknown [id number] 2.16.8 40.1.634388.3.579.2. 1954 Unknown [id number] 2.16.8 40.1.808066.3.579.2. 1954 Unknown [id number] 2.16.8 40.1.028288.3.579.2. 1954 Unknown [id number] 2.16.8 40.1.735819.3.579.2.72 1954 Unknown [id number] 2.16.8 40.1.043174.3.579.2 1954 Unknown [id number] 2.16.8 40.1.648345.3.579.2.727 Social History Date Type Detail Facility Start: 01-19-2021 End: 07-18-2022 Tobacco smoking status Never smoked tobacco (finding) [facility] Tobacco smoking status Never [facility] Sex Assigned At Female [facility] Tobacco smoking status NHIS Tobacco [facility] Start: 1955 Sex Assigned At Not on file [facility] Tobacco [facility] Comment on above: denies Tobacco smoking status No Smoking Status Entered [facility] Medical Equipment Procedure Code Equipment Code Equipment Origin al Text Equipment Identifier Dates HIP BIPOLAR ARTHROPLASTY Joaquim Noe DO 11/25/22 Non Biological Hip R {[id number] FDA Start: 11-25-2022 HIP TOTAL ARTHRO PLASTY REVISION Joaquim Noe DO 12/20/22 Unknown Hip R FDA Start: 12-20-2022 HIP TOTAL ARTHRO PLASTY REVISION Joaquim Noe DO 12/20/22 Unknown Hip R FDA Start: 12-20-2022 HIP TOTAL ARTHRO PLASTY REVISION Joaquim Noe DO 12/20/22 Unknown Hip R FDA Start: 12-20-2022 HIP TOTAL ARTHRO PLASTY REVISION Joaquim Noe DO 12/20/22 Unknown Hip R FDA Start: 12-20-2022 HIP TOTAL ARTHRO PLASTY REVISION Joaquim Noe DO 12/20/22 Unknown Hip R FDA Start: 12-20-2022 HIP TOTAL ARTHRO PLASTY REVISION Joaquim Noe DO 12/20/22 Unknown Hip R FDA Start: 12-20-2022 HIP TOTAL ARTHRO PLASTY REVISION Joaquim Noe DO 12/20/22 Unknown Hip R FDA Start: 12-20-2022 HIP TOTAL ARTHRO PLASTY REVISION Joaquim Noe DO 12/20/22 Unknown Hip R FDA Start: 12-20-2022 HIP TOTAL ARTHRO PLASTY REVISION Joaquim Noe DO 12/20/22 Unknown Hip R FDA Start: 12-20-2022 Functional Status Date Assessment Result Facility 02-12-2023 Functional Status No [facility] 12-19-2022 Functional Status N/A [facility] 11-24-2022 Functional Status No [facility] 11-24-2022 Functional Status [facility] 10-02-2022 Functional Status N/A [facility] 09-04-2022 Functional Status N/A [facility] 09-04-2022 Functional Status N/A [facility] 08-09-2022 Functional Status N/A [facility] 07-18-2022 Functional Status N/A [facility] 04-10-2022 Functional Status N/A [facility] 04-03-2022 Functional Status N/A [facility] 04-02-2022 Functional Status N/A [facility] 03-13-2022 Functional Status N/A [facility] 02-08-2022 Functional Status N/A [facility] 02-03-2022 Functional Status N/A [facility] 02-01-2022 Functional Status No [facility] 01-31-2022 Functional Status [facility] 01-28-2022 Functional Status N/A [facility] 01-28-2022 Functional Status [facility] 01-27-2022 Functional Status N/A [facility] 11-17-2021 Functional Status N/A [facility] Clinical Notes 11-17-2021 to 03-20-2023 Note Date & Type Note Facility 03-20-2023 Note [id number] [facility] 03-03-2023 Evaluation note Encounter Date Diagnosis Assessment Notes Feb, Presence of unspecified artificial hip joint (ICD-10 - Z96.649) Feb, Infection of prosthetic joint, subsequent encounter (ICD-10 - T84.50XD) Patient is more comfortable and doing a lot better this time in my office than she had been the last time. The incision itself is closed and there is no signs of drainage. She is supposed to have a second stage performed but generally an aspiration is done before this second surgery scheduled. She remains on IV antibiotics and depending on timing of aspiration they should stop 2 weeks prior to aspiration of her hip joint. This is not scheduled as of yet from what I understand. I wrote an order to correlate this with Dr. Noe's office. Feb, Receiving intravenous antibiotic treatment as outpatient (ICD-10 - Z79.2) Feb, Other specified bacterial agents as the cause of diseases classified elsewhere (ICD-10 - B96.89) [facility] Other [id number] Evaluation + Plan noteExtracted from: Title:ANES Post-operative Note - General Author: Can Kaplan Jr., DO Date:02/13/23 Plan Transfer/Discharge: Transfer/Discharge Discharge when meets criteria ( From PACU to Ambulatory Surgery Unit, and To home ). Extracted from: Title:ANES Pre-operative Note - Adult Author:Can Chapa Jr., DO Date:02/13/23 Plan [place] [employer]esthesi[employer] (ASA) physical status classification: Class III. Anesthetic Preoperative Plan: Anesthesia General. Future Scheduled Tests Radiology* NM Gastric Emptying Study 04/10/22 [facility]11-16-2023 Hospital Discharge instructions Patient Education 02/13/2023 08:20:41 Post Op Patient Instructions - FT (Custom) (CUSTOM) 02/13/2023 07:23:07 Henri Noe - Hip Injection with Anesthesia (Custom) [place], [place] [facility] HIP INJECTION WITH ANESTHESIA Home Care Instructions Diet You may resume your regular diet as tolerated. Please remember to take your pain medication with food to avoid stomach upset. Increased liquid intake is encouraged for 48 hours after discharged home. Anesthesia Precautions Do not operate a vehicle (automobile, bicycle, motorcycle), machinery or power tools, or drink alcohol beverages for 24 hours. Do not drink any alcohol beverages while you are taking your pain medications. Arrange for a responsible adult to remain with you for at least 24 hours, possibly longer. You may be drowsy and light-headed from the anesthesia and possibly from your pain medication as well. Expecations of Surgery You may have mild to moderate discomfort for the first several days. This should gradually decrease. Any increased discomfort should be reported to the office. Call the office with any of the following: any persistent or heavy bleeding, temperature above 101.5 degrees, increasing redness, swelling or drainage at the operative site, severe and increasing pain at the operative site, persistent vomiting. Joaquim Noe DO [facility] [address] [place], [place] [id number] Reviewed: [facility]11-06-2023 Evaluation note* Encounter Date Diagnosis Assessment Notes Treatment Notes Treatment Clinical Notes Jan, Infection and inflammatory reaction due to other internal joint prosthesis, initial encounter (ICD-10 - T84.59XA) Not really sure what to say given it seems the patient is going in the wrong direction clinically and that she states she cannot even do any type of lifting of the leg itself on the right side. I asked her family as well as the patient if she is progressing with therapy and she said yes. This makes me question whether or not there is a significant functional problem or not. She does not see Dr. Noe until September 13. I was hoping that given her complaints that may be he could evaluate her a little sooner. For now would maintain daptomycin and the oral Cipro but given her main complaint is discomfort and pain I am not really sure how changing or adjusting the antibiotics would make any difference for her until more information is known. Jan, Presence of unspecified artificial hip joint (ICD-10 - Z96.649) Jan, Receiving intravenous antibiotic treatment as outpatient (ICD-10 - Z79.2) Jan, Other specified bacterial agents as the cause of diseases classified elsewhere (ICD-10 - B96.89) [facility] Other 10-31-2023 Note [id number] [facility] 01-27-2023 NoteFisher [facility]:Result Comment: printed and restickered and scanned to proper finElectronically Signed By: Joaquim Noe DO\.br\Date and Time Signed: 01/24/23 18:47 [id number] Note [id number] Discharge instructions Patient Education 12/24/2022 17:59:10 Septic Arthritis Septic Arthritis Septic arthritis is inflammation of a joint that results from an infection. The infection occurs when bacteria or other germs get inside a joint. The knee and hip joints are most often affected, but other joints may also become infected. Usually, just one joint is affected. Joint infections need noemi treated quickly to prevent damage to the joint, and to prevent the infection from spreading to other areas of the body. What are the causes? This condition is most often caused by Staphylococcus bacteria. Other causes may include: Fungal infections. Sexually transmitted infections (STIs). Tuberculosis. Bacteria or other germs can spread to the joint. These bacteria are usually from: Blood carrying germs from an infection in another part of your body to your joint. This is the mostcommon cause of septic arthritis. An open wound near the joint. A needle put into the joint. Joint surgery. An infection in the bone (osteomyelitis) that spreads to the joint. What increases the risk? You may have a higher risk for this condition if you: Have an artificial joint. Have a blood or skin infection. Have open sores or wounds on your skin. Had a recent joint surgery or procedure. Had a recent joint injury. Have a long-term (chronic) disease, such as: ?Diabetes. ?Osteoarthritis. ?Rheumatoid arthritis. ?Human immunodeficiency virus (HIV). Have a condition or take medicines that weaken your body's defense system (immune system). Use IV medicines or have a central line for IV access. Have gonorrhea. What are the signs or symptoms? Symptoms of this condition include: Swelling at the joint. Severe pain in the joint. Redness and warmth in the joint. Being unable to move the joint. Fever and chills. How is this diagnosed? This condition may be diagnosed based on: Your symptoms. Your medical history. A physical exam. Tests to confirm the diagnosis. These may include: ?Removing fluid from your joint to look for signs of infection (synovial fluid analysis). ?Blood tests. Imaging studies. These may include: ?X-rays. ?MRI. ?CT scan. ?Ultrasound. How is this treated? This condition may be treated by: Draining fluid from your joint. This may be done for several days in order to relieve pain. Taking antibiotic medicine. This may be given by IV or by mouth. It may be done in a hospital at first. You may have to continue antibiotics at home by IV or by mouth for several weeks after that. Surgery to remove: ?Infected fluid and tissue from the joint. ?An infected artificial joint. After the infection has started to heal, you may need physical therapy to regain movement and strength in the joint. Follow these instructions at home: Medicines Take hwtc-ztg-xdlokms and prescription medicines only as told by your health care provider. If you were prescribed an antibiotic medicine, take it as told by your health care provider. Do notstop taking the antibiotic even if you start to feel better. If you need to take antibiotics at home by IV, follow instructions from your health care provider about how to do this. You may need to have a nurse come to your home to give you antibiotics through IV. Managing pain, stiffness, and swelling If directed, put ice on the affected area. To do this: ? Put ice in a plastic bag. ?Place a towel between your skin and the bag. ?Leave the ice on for 20 minutes, 2 3 times a day. ?Remove the ice if your skin turns bright red. This is very important. If you cannot feel pain, heat, or cold, you have a greater risk of damage to the area. Raise (elevate) the affected area above the level of your heart while you are sitting or lying down. Activity Return to your normal activities as told by your health care provider. Ask your health care provider what activities are safe for you. Do any exercises or stretches as told by your health care provider or physical therapist. General instructions Do not use any products that contain nicotine or tobacco. These products include cigarettes, chewing tobacco, and vaping devices, such as e-cigarettes. These can delay healing. If you need help quitting, ask your health care provider. Wash your hands often with soap and water for at least 20 seconds. If soap and water are not available, use hand floral designer. Keep all follow-up visits. This is important. Contact a health care provider if: You have pain that is not controlled with medicine. You develop a fever or chills. You have redness, warmth, pain, or swelling that returns after treatment. Get help right away if: You have signs of worsening infection in your joint. Watch for: ?Very severe pain. ?Redness. ?Warmth. ?Swelling. You have rapid breathing or you have trouble breathing. You have chest pain. You cannot drink fluids or make urine. You notice that the affected area changed color or turned blue. You have numbness or severe pain in the affected area. These symptoms may be an emergency. Get help right away. Call 911. Do not wait to see if the symptoms will go away. Do not drive yourself to the hospital. Summary Septic arthritis is inflammation of a joint that occurs when bacteria or other germs get inside a joint and cause an infection. Joint infections need to be treated quickly to prevent damage to the joint, and to prevent the infection from spreading to other areas of the body. Symptoms of joint infection include redness, warmth, swelling, pain, and being unable to move a joint. Treatment usually involves draining fluid from the joint and taking antibiotic medicine. This information is not intended to replace advice given to you by your health care provider. Make sure you discuss any questions you have with your health care provider. Document Revised: 02/06/2022 Document Reviewed: 02/06/2022 [employer] Patient Education 2022 [employer]. Follow Up Care 12/19/2022 11:45:54 With:Joaquim Noe Address: [address] [place] [address] Business (1) When: Unknown Comments:Call for followup appointment With:Ashish Chester Address: [address] [place] [address] Business (1) When:2 weeks Comments:Call for followup appointment With:Marcelo Call Address: [address], [facility] [address] [place] [address] Business (1) When: Unknown [facility]09-26-2023 Evaluation + Plan noteExtracted from: Title:APSO Note Author:FALLON BANKS, Mbanefo Date: 67-year-old female with history of diabetes mellitus, hypertension, neuropathy, hypothyroidism, recent right hip fracture status post replacement, recent acute blood loss anemia presented with right hip pain and discomfort and was admitted to Dr. Noe's service for right hip septic arthritis status post incision, drainage, irrigation and debridement and removal of prosthesis with Antibiotic spacer implantation and wound VAC application 1. Septic hip (M00.9: Pyogenic arthritis, unspecified) History of right hip replacement status post incision, drainage, irrigation and debridement with explant with antibiotic spacer placement. Status post wound VAC placement. Wound cultures isolated gram-positive jyotsna organisms diphtheroid. Continue on IV daptomycin. Infectious disease consult pending. Patient has been PICC line placed. Started patient on MiraLAX for constipation. Ordered: [facility] Hospital Care/Day Moderate 35 Minutes 73708 2. Acute blood loss anemia (D62: Acute posthemorrhagic anemia) From recent admission. Hemoglobin stable. Continue on ferrous sulfate. Ordered: [facility] Hospital Care/Day Moderate 35 Minutes [id number] 3. 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 Ordered: [facility] Hospital Care/Day Moderate 35 Minutes [id number] 4. HTN (hypertension) (I10: Essential (primary) hypertension) Blood pressure controlled. Continue on Coreg and lisinopril. Ordered: [facility] Hospital Care/Day Moderate 35 Minutes [id number] 5. Hypothyroidism (E03.9: Hypothyroidism, unspecified) Stable. On Synthroid. Disposition: To retirement facility when arranged. I discussed the diagnosis and plan of care with the patient at the bedside. Moderate level of MDM based on addressing above issues. This documentation was transcribed using voice recognition software. Several attempts were made to ensure accuracy. However inadvertent computerized route sales delivery drivers supervisor errors may be present. Soni Padgett. Hospitalist. Ordered: [facility] Hospital Care/Day Moderate 35 Minutes [id number] Orders: bisacodyl, 10 mg = 2 tab(s), Tab-EC, Oral, Once, Stop date 12/24/22 10:00:00 EDT, Routine, Start date 12/24/22 10:00:00 EDT, 12/24/22 9:10:00 EDT polyethylene glycol 3350, 17 gram = 1 EA, Powder-Recon, Oral, Daily, Routine, Start date 12/24/22 10:00:00 EDT, 12/24/22 10:00:00 EDT Referral to [facility] Addendum by FALLON BANKS, Sarah lobo on December 24, 2022 15:28:26 EDT I spoke with infectious disease specialist advised that patient when ready for discharge we will continue on IV daptomycin for total of 6 weeks. Patient to follow-up with him as outpatient. Patient to have weekly creatinine, CPK and C-reactive protein done and results faxed to him. Extracted from: Title:APSO Note Author:Soni PADGETT MD Date: 67-year-old female with history of diabetes mellitus, hypertension, neuropathy, hypothyroidism, recent right hip fracture status post replacement, recent acute blood loss anemia presented with right hip pain and discomfort and was admitted to Dr. Noe's service for right hip septic arthritis status post incision, drainage, irrigation and debridement and removal of prosthesis with Antibiotic spacer implantation and wound VAC application. 1. Septic hip (M00.9: Pyogenic arthritis, unspecified) Present on admission. Status post incision, drainage, irrigation and debridement. Status post antibiotic spacer placement with wound VAC placement. Management by orthopedic surgeon. Wound cultures isolating gram-positive jyotsna organisms diphtheroid looking. Continue on IV daptomycin. Patient will need PICC line. Infectious disease consult pending. Ordered: [facility] Hospital Care/Day Moderate 35 Minutes [id number] 2. Acute blood loss anemia (D62: Acute posthemorrhagic anemia) From recent admission. Hemoglobin above 7.0. No need for blood transfusion. Continue on ferrous sulfate. Ordered: [facility] Hospital Care/Day Moderate 35 Minutes [id number] 3. 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 Ordered: [facility] Hospital Care/Day Moderate 35 Minutes 08520 4. HTN (hypertension) (I10: Essential (primary) hypertension) Blood pressure fairly controlled. Continue on Coreg, lisinopril. Ordered: [facility] Hospital Care/Day Moderate 35 Minutes [id number] 5. Hypothyroidism (E03.9: Hypothyroidism, unspecified) Continue Synthroid. Disposition: Pending final wound culture results and final infectious disease recommendations. I discussed the diagnosis and plan of care with the patient at the bedside. Moderate level of MDM based on addressing above issues. This documentation was transcribed using voice recognition software. Several attempts were made to ensure accuracy. However inadvertent computerized route sales delivery drivers supervisor errors may be present. Soni Padgett. Hospitalist. Ordered: [facility] Hospital Care/Day Moderate 35 Minutes [id number] Extracted from: Title:Progress/SOAP Note Author:Rosalia Grossman DO Date:12/22/22 67-year-old female admitted for infection to her right hip after undergoing a right hip bipolar hemiarthroplasty November 25, 2022 - had surgery December 20 for right hip hemiarthroplasty explant with antibiotic spacer implant. She has a history of type 2 diabetes with neuropathy on insulin, hypertension, hyperlipidemia, hypothyroidism, iron deficiency anemia, depression/anxiety, chronic pain, kidney stones, IBS, GERD, diverticular disease and history of kidney stones. 1. Septic hip (M00.9: Pyogenic arthritis, unspecified) S/P right hip hemiarthroplasty explant with antibiotic spacer implant 12/20/2022 Day 2 IV daptomycin ID consult 2. Diabetes mellitus with polyneuropathy (E11.42: Type 2 diabetes mellitus with diabetic polyneuropathy) Continue sliding scale insulin plus basal Lantus for diabetes 3. HTN (hypertension) (I10: Essential (primary) hypertension) Maintain lisinopril and carvedilol; she is also on atorvastatin PLAN: 1. Continue daptomycin 2. ID has been consulted 3. Pain control as needed 4. Continue carvedilol and lisinopril plus atorvastatin from home 5. Sliding scale insulin for diabetes and basal Lantus 6. She is also on bupropion, iron sulfate, levothyroxine, Plavix and trazodone plus Protonix 7. DVT prophylaxis with SCDs and subcu enoxaparin 8. PT and OT as ordered 9. Ulcer prophylaxis with oral PPI 10. Full CODE STATUS Extracted from: Title:Progress/SOAP Note Author:Rosalia Grossman DO Date:12/21/22 67-year-old female admitted for infection to her right hip after undergoing a right hip bipolar hemiarthroplasty November 25, 2022 - had surgery yesterday. She has a history of type 2 diabetes with neuropathy on insulin, hypertension, hyperlipidemia, hypothyroidism, iron deficiency anemia, depression/anxiety, chronic pain, kidney stones, IBS, GERD, diverticular disease and history of kidney stones. 1. Septic hip (M00.9: Pyogenic arthritis, unspecified) Wound drain in place On daptomycin Ordered: [facility] Care/Day Moderate 55 Minutes 08941 2. Diabetes mellitus with polyneuropathy (E11.42: Type 2 diabetes mellitus with diabetic polyneuropathy) Sliding scale insulin for diabetes plus that she takes from home Ordered: [facility] Hospital Care/Day Moderate 55 Minutes 03392 3. HTN (hypertension) (I10: Essential (primary) hypertension) On lisinopril and carvedilol from home; we also resumed her atorvastatin Ordered: [facility] Hospital Care/Day Moderate 55 Minutes 13281 PLAN: 1. Patient is on daptomycin 2. We will continue her sliding scale insulin and her basal Lantus for her diabetes 3. She is on carvedilol along with lisinopril for her hypertension; she is on atorvastatin for hyperlipidemia 4. Continue her other meds including her bupropion, iron sulfate, levothyroxine, Paxil and trazodone as well as Protonix 5. Pain control per orthopedics 6. DVT prophylaxis with SCDs for now 7. Ulcer prophylaxis with oral PPI 8. Full CODE STATUS Extracted from: Title:LESLIE Post Op - General Author:MD Martinez Ahmad F Date:12/20/22 Plan Transfer/Discharge: Transfer/Discharge Discharge when meets criteria ( To home ). Extracted from: Title:LESLIE Pre Op - Adult General Author:Cruzito em MD, Ahmad F Date:12/20/22 Plan [employer] (ASA) physical status classification: Class III. Anesthetic Preoperative Plan Anesthesia: General. . Anesthetic plan, risks, benefits, and alternatives discussed with the patient and/or family. Risks discussed: nausea, vomiting, headache, sore throat, dental injury, serious complications. Patient verbalized understanding. Communication: face to face with patient 5 minutes. Extracted from: Title:Consult Note Author:Cordell Grossman DO Date:12/20/22 67-year-old female admitted for infection to her right hip after undergoing a right hip bipolar hemiarthroplasty November 25, 2022. She has a history of type 2 diabetes with neuropathy on insulin, hypertension, hyperlipidemia, hypothyroidism, iron deficiency anemia, depression/anxiety, chronic pain, kidney stones, IBS, GERD, diverticular disease and history of kidney stones. 1. Septic hip (M00.9: Pyogenic arthritis, unspecified) Patient to go to the OR later today per orthopedics Pain control as needed 2. Diabetes mellitus with polyneuropathy (E11.42: Type 2 diabetes mellitus with diabetic polyneuropathy) She is on sliding scale insulin for her diabetes. Basal Lantus and will follow her Accu-Cheks and a.m. lab 3. HTN (hypertension) (I10: Essential (primary) hypertension) We resumed her lisinopril and carvedilol from home; she is also on atorvastatin PLAN: 1. We will continue her sliding scale insulin and her basal Lantus for her diabetes 2. She is on carvedilol along with lisinopril for her hypertension; she is on atorvastatin for hyperlipidemia 3. Continue her other meds including her bupropion, iron sulfate, levothyroxine, Paxil and trazodone as well as Protonix 4. OR per orthopedics today 5. Pain control per orthopedics 6. DVT prophylaxis with SCDs for now 7. Ulcer prophylaxis with oral PPI 8. Full CODE STATUS Thank you for consultation. We will follow with you. Diagnostic Tests Pending * Creatine Kinase 12/27/22 Future Scheduled Tests Radiology* NM Gastric Emptying Study 04/10/22 [facility]09-10-2023 Hospital Discharge instructions Follow Up Care 12/08/2022 11:51:54 With:Emely Mccall DO, FAM Address: When:Within 1 Month(s) [facility] 09-01-2023 Evaluation + Plan noteExtracted from: Title:Discharge Note Author:FALLON BANKS, Soni Almaguer ate:11/29/22 Stable. Discharge To, Anticipated II - [facility] Discharged to - Home independently Discharge Diet(s): Calorie Controlled- 1800 Calorie Diet (11/27/22 13:14:00) Prescriptions aspirin 81 mg Oral EC Tab, 162 mg= 2 tab(s), Oral, Daily lisinopril 20 mg Tab, 20 mg= 1 tab(s), Oral, Daily Percocet 5 mg-325 mg oral tablet, See Instructions Home ascorbic acid 500 mg Tab, 500 mg= 1 tab(s), Oral, BIDWM bisacodyl 5 mg Oral EC Tab, 10 mg= 2 tab(s), Oral, Once, PRN buPROPion 150 mg ER Tab, 300 mg= 2 tab(s), Oral, Daily carvedilol 12.5 mg Tab, 12.5 mg= 1 tab(s), Oral, BID Colace 100 mg Cap, 100 mg= 1 cap(s), Oral, BID esomeprazole 20 mg Cap-DR, 20 mg= 1 cap(s), Oral, Daily ferrous sulfate 325 mg Tab, 325 mg= 1 tab(s), Oral, BIDWM hydrOXYzine hydrochloride 25 mg Tab, 25 mg= 1 tab(s), Oral, TID, PRN Lantus 100 units/mL Injection-Insulin, 15 unit(s), SubCutaneous, Daily levothyroxine 112 mcg (0.112 mg) Tab, 112 mcg= 1 tab(s), Oral, Daily Paxil 10 mg Tab, 10 mg= 1 tab(s), Oral, As Directed Reglan 10 mg Tab, 10 mg= 1 tab(s), Oral, QIDACHS rosuvastatin 20 mg Tab, 20 mg= 1 tab(s), Oral, Daily traZODONE 100 mg Tab, 200 mg= 2 tab(s), Oral, Once a day (at bedtime) Trulicity Pen 4.5 mg/0.5 mL subcutaneous solution, 4.5 mg, SubCutaneous, qWeek With When Contact Information Marcelo Link Only if needed [address], [facility] [address] [place] [address]- Neuronex (1) Additional Instructions: Joaquim Noe Within 2 to 4 weeks [address] [place], [place] [address] Neuronex (1) Additional Instructions: Call for followup appointment Hip Fracture Extracted from: Title:APSO Note Author:FALLON BANKS, Mbanefo Date: 67-year-old female with history of hypertension, hyperlipidemia, diabetes mellitus type 2, anemia, diabetic neuropathy, presented with right hip pain following a fall and was admitted with acute right hip closed pathologic fracture secondary to osteoporosis, fall, acute blood loss anemia. 1. Closed hip fracture (S72.009A: Fracture of unspecified part of neck of unspecified femur, initial encounter for closed fracture) Acute closed right hip pathologic fracture secondary to osteoporosis and fall present on admission. Status post right hip replacement surgery on 11/25/[address] Joaquim Noe. Continue with physical therapy pending precertification to SNF. Ordered: [facility] Hospital Care/Day Moderate 35 Minutes 38526 2. Fall (W19.XXXA: Unspecified fall, initial encounter) Mechanical fall. Stable. Ordered: [facility] Hospital Care/Day Moderate 35 Minutes 48563 3. Acute blood loss anemia (D62: Acute posthemorrhagic anemia) Acute blood loss anemia in the perioperative period. Patient received 1 unit of packed red blood cell transfusion and hemoglobin is stable at around 8.6. She also received IV iron infusions. Continue on oral iron. [facility]: [facility]Day Moderate 35 Minutes 01132 4. Hypertension (I10: Essential (primary) hypertension) Blood pressure fairly controlled. Continue on Coreg and lisinopril. Ordered: [facility] Hospital Care/Day Moderate 35 Minutes 75564 5. Hyperlipidemia (E78.5: Hyperlipidemia, unspecified) Stable. On Lipitor. Ordered: [facility] Care/Day Moderate 35 Minutes 23694 6. Diabetes (E11.9: Type 2 diabetes mellitus without complications) Stable. On Lantus and sliding scale insulin. 7. Thrombocytopenia (D69.6: Thrombocytopenia, unspecified) Resolved. 8. Chronic GERD (K21.9: Gastro-esophageal reflux disease without esophagitis) Stable. On pantoprazole. 9. Depression with anxiety (F41.8: Other specified anxiety disorders) Stable. On bupropion. 10. Hypothyroidism (E03.9: Hypothyroidism, unspecified) Stable. On Synthroid. 11. Peripheral neuropathy (G62.9: Polyneuropathy, unspecified) Supportive care. 12. Encounter for deep vein thrombosis (DVT) prophylaxis (Z29.9: Encounter for prophylactic measures, unspecified) Lovenox. Disposition: To retirement facility pending precertification. I discussed the diagnosis and plan of care with the patient at the bedside. Moderate level of MDM based on addressing above issues. This documentation was transcribed using voice recognition software. Several attempts were made to ensure accuracy. However inadvertent computerized route sales delivery drivers supervisor errors may be present. Soni Padgett. Hospitalist. Orders: aspirin, 162 mg = 2 tab(s), Oral, Daily, X 30 day(s), # 60 tab(s), Refills(s) 0 Extracted from: Title:APSO Note Author:FALLON BANKS, Sarahfo Date: 67-year-old female with history of hypertension, hyperlipidemia, diabetes mellitus type 2, anemia, diabetic neuropathy, presented with right hip pain following a fall and was admitted with acute right hip closed pathologic fracture secondary to osteoporosis, fall, acute blood loss anemia. 1. Closed hip fracture (S72.009A: Fracture of unspecified part of neck of unspecified femur, initial encounter for closed fracture) Acute closed right hip pathologic fracture secondary to osteoporosis and fall present on admission. Status post right hip replacement surgery on 11/25/[address] Joaquim Noe. Continue with physical therapy pending precertification to SNF. Ordered: [facility] Hospital Care/Day Moderate 35 Minutes 38380 2. Fall (W19.XXXA: Unspecified fall, initial encounter) Mechanical fall. Supportive care. Ordered: [facility] Hospital Care/Day Moderate 35 Minutes 14420 3. Acute blood loss anemia (D62: Acute posthemorrhagic anemia) Acute blood loss anemia in the perioperative period Status post 1 unit of packed red blood cell transfusion. Hemoglobin stable at 8.6. Patient received IV iron infusions. Continue on oral iron. Ordered: [facility] Hospital Care/Day Moderate 35 Minutes 79421 4. Hypertension (I10: Essential (primary) hypertension) Blood pressure fairly controlled. Continue on Coreg. We will resume lisinopril at discharge with hold parameters. Ordered: [facility] Hospital Care/Day Moderate 35 Minutes 80176 5. Hyperlipidemia (E78.5: Hyperlipidemia, unspecified) Stable. On Lipitor. 6. Diabetes (E11.9: Type 2 diabetes mellitus without complications) Stable. On Lantus and sliding scale insulin. 7. Thrombocytopenia (D69.6: Thrombocytopenia, unspecified) Resolved. 8. Chronic GERD (K21.9: Gastro-esophageal reflux disease without esophagitis) On pantoprazole 9. Depression with anxiety (F41.8: Other specified anxiety disorders) Stable. On bupropion. 10. Hypothyroidism (E03.9: Hypothyroidism, unspecified) Stable. On Synthroid. 11. Peripheral neuropathy (G62.9: Polyneuropathy, unspecified) Stable. 12. Encounter for deep vein thrombosis (DVT) prophylaxis (Z29.9: Encounter for prophylactic measures, unspecified) Lovenox and will transition to aspirin at discharge as per orthopedic surgeon. Disposition: To retirement facility when arranged pending precertification. I discussed the diagnosis and plan of care with the patient at the bedside. Moderate level of MDM based on addressing above issues. This documentation was transcribed using voice recognition software. Several attempts were made to ensure accuracy. However inadvertent computerized route sales delivery drivers supervisor errors may be present. Soni Padgett. Hospitalist. Orders: acetaminophen-oxycodone, See Instructions, 28 tab(s), Refill(s) 0, 1- 2 tab(s) Oral q6hr as nneded for Pain x 7 days ascorbic acid, 500 mg = 1 tab(s), Oral, BIDWM, Refills(s) 0 bisacodyl, 10 mg = 2 tab(s), Oral, Once, PRN Constipation, Refills(s) 0 docusate, 100 mg = 1 cap(s), Oral, BID, Refills(s) 0 enoxaparin, 30 mg = 0.3 mL, SubCutaneous, Daily, X 21 day(s), Refills(s) 0 ferrous sulfate, 325 mg = 1 tab(s), Oral, BIDWM, Refills(s) 0 lisinopril, 20 mg = 1 tab(s), Oral, Daily, HOLD IF SYSTOLIC BLOOD PRESSURE LESS THAN 120, # 90 tab(s), Refills(s) 0, Pharmacy: [id number], 162, cm, 01/31/22 21:16:00 EDT, Height/Length Dosing, 70.4, kg, 01/31/22 21:16:00 EDT, Weight Dosing UA With Cult Reflex Extracted from: Title:APSO Note Author:FALLON BANKS, Sarahfo Date: Called [id number] [place] female with history of hypertension, hyperlipidemia, diabetes mellitus type 2, anemia, diabetic neuropathy, presented with right hip pain following a fall and was admitted with acute right hip closed pathologic fracture secondary to osteoporosis, fall, acute blood loss anemia. 1. Closed hip fracture (S72.009A: Fracture of unspecified part of neck of unspecified femur, initial encounter for closed fracture) Acute closed right hip pathologic fracture secondary to osteoporosis and fall present on admission. Status post right hip replacement surgery on 11/25/[address] Joaquim Noe. Continue with physical therapy pending precertification to SNF. Ordered: [facility] Hospital Care/Day Moderate 35 Minutes 84558 2. Fall (W19.XXXA: Unspecified fall, initial encounter) Mechanical fall. Supportive care. Ordered: [facility] Hospital Care/Day Moderate 35 Minutes 98164 3. Acute blood loss anemia (D62: Acute posthemorrhagic anemia) Acute blood loss anemia in the perioperative period Status post 1 unit of packed red blood cell transfusion. Patient received IV iron infusions. Continue on oral iron. [facility]: [facility]Day Moderate 35 Minutes 51806 4. Hypertension (I10: Essential (primary) hypertension) Blood pressure fairly controlled. Continue on Coreg. Lisinopril on hold. Ordered: [facility] Care/Day Moderate 35 Minutes 40163 5. Hyperlipidemia (E78.5: Hyperlipidemia, unspecified) Stable. On Lipitor. Ordered: [facility] Hospital Care/Day Moderate 35 Minutes 32782 6. Diabetes (E11.9: Type 2 diabetes mellitus without complications) Stable. On Lantus and sliding scale insulin. 7. Thrombocytopenia (D69.6: Thrombocytopenia, unspecified) Chronic. 8. Chronic GERD (K21.9: Gastro-esophageal reflux disease without esophagitis) On pantoprazole. 9. Depression with anxiety (F41.8: Other specified anxiety disorders) Chronic. On bupropion. 10. Hypothyroidism (E03.9: Hypothyroidism, unspecified) Stable. On Synthroid. 11. Peripheral neuropathy (G62.9: Polyneuropathy, unspecified) Stable. 12. Encounter for deep vein thrombosis (DVT) prophylaxis (Z29.9: Encounter for prophylactic measures, unspecified) Lovenox. Disposition: To retirement facility when arranged. I discussed the diagnosis and plan of care with the patient at the bedside. Moderate level of MDM based on addressing above issues. This documentation was transcribed using voice recognition software. Several attempts were made to ensure accuracy. However inadvertent computerized route sales delivery drivers supervisor errors may be present. Soni Padgett. Hospitalist. Extracted from: Title:APSO Note Author:Janny MANZANO Date:11/26/22 PLAN: 1. Closed hip fracture (S72.009A: Fracture of unspecified part of neck of unspecified femur, initial encounter for closed fracture) S/P POD #1 right hip bipolar hemiarthroplasty secondary to subcapital femoral neck fracture, right hip status post mechanical fall from standing height. Pathologic fracture secondary to osteoporosis. performed by ortho . CT of pelvis shows acute right subcapital femoral neck fracture Dilaudid for pain control Bowel regimen control 2. Fall (W19.XXXA: Unspecified fall, initial encounter) Mechanical fall Per patient she has had increasing falls over the last few months PT/OT to evaluate, treat make recommendations when appropriate UA negative 3. Hypertension (I10: Essential (primary) hypertension) Coreg Hold lisinopril 4. Hyperlipidemia (E78.5: Hyperlipidemia, unspecified) Statin 5. Diabetes (E11.9: Type 2 diabetes mellitus without complications) Accu-Cheks before meals and at bedtime with sliding scale insulin Typically takes glargine 15 units daily we will reduce to 10 but hold for now. 6. Anemia (D64.9: Anemia, unspecified) Hemoglobin dropped again today down to 7.6 post op. Pt is weak has some mild dyspnea w/exertion. Trend labs No acute bleeding noted Anemia panel reviewed and iron saturation is low. Iron sucrose x3 doses 1 unit PRBCs today likely due to perioperative blood loss. 7. Thrombocytopenia (D69.6: Thrombocytopenia, unspecified) Currently stable 8. Chronic GERD (K21.9: Gastro-esophageal reflux disease without esophagitis) PPI, Reglan 9. Depression with anxiety (F41.8: Other specified anxiety disorders) BuSpar, Paxil 10. Hypothyroidism (E03.9: Hypothyroidism, unspecified) Synthroid dose decreased with low TSH and normal T4. Repeat TSH/T4 in 6 weeks. 11. Peripheral neuropathy (G62.9: Polyneuropathy, unspecified) No longer on gabapentin unable to tolerate 12. Encounter for deep vein thrombosis (DVT) prophylaxis (Z29.9: Encounter for prophylactic measures, unspecified) Heparin subcu Disposition: Inpatient status will require greater than 2 midnight stays for further work-up and treatment of above Extracted from: Title:ANES Post Op - General Author:MD Juan , Ahmad F Date:11/25/22 Plan Transfer/Discharge: Transfer/Discharge Discharge when meets criteria ( To home ). Extracted from: Title:APSO Note Author:Janny MANZANO Date:11/25/22 PLAN: 1. Closed hip fracture (S72.009A: Fracture of unspecified part of neck of unspecified femur, initial encounter for closed fracture) subcapital femoral neck fracture, right hip status post mechanical fall from standing height. Pathologic fracture secondary to osteoporosis. CT of pelvis shows acute right subcapital femoral neck fracture consult Dr. Noe --patient pending right hip bipolar hemiarthroplasty today Dilaudid for pain control Bowel regimen control 2. Fall (W19.XXXA: Unspecified fall, initial encounter) Mechanical fall Per patient she has had increasing falls over the last few months PT/OT to evaluate, treat make recommendations when appropriate UA pending 3. Hypertension (I10: Essential (primary) hypertension) Coreg Hold lisinopril 4. Hyperlipidemia (E78.5: Hyperlipidemia, unspecified) Statin 5. Diabetes (E11.9: Type 2 diabetes mellitus without complications) Accu-Cheks before meals and at bedtime with sliding scale insulin Typically takes glargine 15 units daily we will reduce to 10 but hold for now. N.p.o. after midnight 6. Anemia (D64.9: Anemia, unspecified) Hemoglobin dropped again today. Trend labs No acute bleeding noted Anemia panel reviewed and iron saturation is low. Iron sucrose x3 doses 7. Thrombocytopenia (D69.6: Thrombocytopenia, unspecified) Currently stable 8. Chronic GERD (K21.9: Gastro-esophageal reflux disease without esophagitis) PPI, Reglan 9. Depression with anxiety (F41.8: Other specified anxiety disorders) BuSpar, Paxil 10. Hypothyroidism (E03.9: Hypothyroidism, unspecified) Synthroid dose decreased with low TSH and normal T4. Repeat TSH/T4 in 6 weeks. 11. Peripheral neuropathy (G62.9: Polyneuropathy, unspecified) No longer on gabapentin unable to tolerate 12. Encounter for deep vein thrombosis (DVT) prophylaxis (Z29.9: Encounter for prophylactic measures, unspecified) Heparin subcu Disposition: Inpatient status will require greater than 2 midnight stays for further work-up and treatment of above. Extracted from: Title:ANES Pre Op - Adult General Author:Cruzito em MD, Ahmad F Date:11/25/22 Plan [employer] (ASA) physical status classification: Class III. Anesthetic Preoperative Plan Anesthesia: General. . Anesthetic plan, risks, benefits, and alternatives discussed with the patient and/or family. Risks discussed: nausea, vomiting, headache, sore throat, dental injury, serious complications. Patient verbalized understanding. Communication: face to face with patient 5 minutes. Extracted from: Title:ORTHO Consult Author:Joaquim Noe DO Micheal e:11/24/22 Impression and Plan 67-year-old female with subcapital femoral neck fracture, right hip status post fall from standing height. Pathologic fracture secondary to osteoporosis. I reviewed the history, physical exam, radiographs, and diagnosis with the patient. Recommendation is made for operative invention to decrease the patient's morbidity and mortality compared to nonoperative management of hip fractures in the elderly. We will proceed with right hip bipolar hemiarthroplasty tomorrow afternoon, 11/25/2022. The patient will be made n.p.o. after midnight. 1 dose of heparin may be administered this evening with anticoagulation held after midnight. The patient will be placed into Worrell's traction for comfort. Ice to the right hip. I will make adjustments to her pain regimen to gain better control. Hemoglobin A1c has already been ordered by the primary service. I reviewed the risks, benefits, complications, and expectations of surgery. The risks include but are not limited to anesthesia, infection, neurovascular injury, DVT, PE, and . I explained the patients often do not return to the previous level of function following a hip fracture. Thanks for the consultation. A total of 45-59 minutes was spent on this patient encounter including chart review, history taking, physical exam, diagnostic study review, patient counseling and discussion, entering information into the patient s medical record, and coordinating care. Extracted from: Title:APSO Note Author:Janny MANZANO Date:11/24/22 PLAN: 1. Closed hip fracture (S72.009A: Fracture of unspecified part of neck of unspecified femur, initial encounter for closed fracture) Secondary to mechanical fall CT of pelvis shows acute right subcapital femoral neck fracture consult Dr. Noe notified by ED-official consult pending Dilaudid for pain control Bowel regimen control 2. Fall (W19.XXXA: Unspecified fall, initial encounter) Mechanical fall Per patient she has had increasing falls over the last few months PT/OT to evaluate, treat make recommendations when appropriate UA pending 3. Hypertension (I10: Essential (primary) hypertension) Coreg Hold lisinopril 4. Hyperlipidemia (E78.5: Hyperlipidemia, unspecified) Statin 5. Diabetes (E11.9: Type 2 diabetes mellitus without complications) Accu-Cheks before meals and at bedtime with sliding scale insulin Typically takes glargine 15 units daily we will reduce to 10 but hold for now. N.p.o. after midnight 6. Anemia (D64.9: Anemia, unspecified) Hemoglobin down to 2 g since Trend labs No acute bleeding noted Anemia panel pending Ordered: Ferritin Folate Level Iron Level Lactate Dehydrogenase Reticulocyte Count TIBC Calculated TSH With T4fr Reflex Vitamin B12 Level 7. Thrombocytopenia (D69.6: Thrombocytopenia, unspecified) Currently stable 8. Chronic GERD (K21.9: Gastro-esophageal reflux disease without esophagitis) PPI, Reglan 9. Depression with anxiety (F41.8: Other specified anxiety disorders) BuSpar, Paxil 10. Hypothyroidism (E03.9: Hypothyroidism, unspecified) Synthroid 11. Peripheral neuropathy (G62.9: Polyneuropathy, unspecified) No longer on gabapentin unable to tolerate 12. Encounter for deep vein thrombosis (DVT) prophylaxis (Z29.9: Encounter for prophylactic measures, unspecified) Heparin subcu Disposition: Inpatient status will require greater than 2 midnight stays for further work-up and treatment of above. Orders: acetaminophen-oxycodone, 1 tab(s), Tab, Oral, q6hr PRN Pain 1-3, Routine, Start date 11/24/22 14:10:00 EDT atorvastatin, 40 mg = 1 tab(s), Tab, Oral, Daily, Routine, Start date 11/25/22 9:00:00 EDT, 11/24/22 14:05:00 EDT buPROPion, 300 mg = 2 tab(s), Tab-ER, Oral, Daily, Routine, Start date 11/25/22 9:00:00 EDT, 11/24/22 14:05:00 EDT carvedilol, 12.5 mg = 1 tab(s), Tab, Oral, BID, Routine, Start date 11/24/22 21:00:00 EDT, 11/24/22 14:05:00 EDT cyclobenzaprine, 10 mg = 1 tab(s), Tab, Oral, Once, Stop date 11/24/22 13:11:00 EDT, NOW, Start date 11/24/22 13:11:00 EDT docusate, 100 mg = 1 cap(s), Cap, Oral, BID, Routine, Start date 11/24/22 21:00:00 EDT, 11/24/22 14:02:00 EDT HYDROmorphone, 1.5 mg = 1.5 mL, Injection, IV Push, Once, Stop date 11/24/22 11:36:00 EDT, NOW, Start date 11/24/22 11:36:00 EDT, 11/24/22 11:36:00 EDT levothyroxine, 112 mcg = 1 tab(s), Tab, Oral, Daily, Routine, Start date 11/25/22 6:30:00 EDT, 11/24/22 14:05:00 EDT metoclopramide, 10 mg = 2 tab(s), Tab, Oral, QIDACHS, Routine, Start date 11/24/22 16:30:00 EDT, 11/24/22 14:05:00 EDT pantoprazole, 40 mg = 1 tab(s), Tab-DR, Oral, Daily, Routine, Start date 11/25/22 9:00:00 EDT, 11/24/22 14:05:00 EDT paroxetine, 10 mg = 1 tab(s), Tab, Oral, As Directed, Routine, Start date 11/24/22 14:05:00 EDT, 11/24/22 14:05:00 EDT Diabetic/Calorie Control Diet Iron Percent Saturation NPO Diet Routine Capillary Glucose POC UA With Cult Reflex Extracted from: Title:Admission H & P Author:Reymundo JORDAN DO Date:11/24/22 1. Closed hip fracture (S72. 009A: Fracture of unspecified part of neck of unspecified femur, initial encounter for closed fracture) On the right secondary to below. This involves the femoral neck. Emergency department doctor discussed case with Dr. Noe who is aware and agrees to be on consult. Patient denies any prior history with anesthesia on prior surgeries, despite her thrombocytopenia she denies any history of excessive bleeding and therefore unlikely to have qualitative platelet defects the quantitative deficit is adequate for surgical procedure if recommended by Dr. Noe. Patient denies any history to suggest cardial ischemia, arrhythmia or near syncopal events, see history above, again if operative intervention is suggested as I expect it will, feel that the benefits of surgical procedure such as decreasing time to healing of right hip fracture, decreased risk of deep venous thrombosis, decreased pneumonia and bedsores (which would be a risk if operative intervention is not pursued )would exceed any medical risks. Patient was anxious to have operative intervention Ordered: cyclobenzaprine, 10 mg = 1 tab(s), Tab, Oral, Once, Stop date 11/24/22 6:00:00 EDT, Routine, Start date 11/24/22 6:00:00 EDT, 11/24/22 5:32:00 EDT HYDROmorphone, 1 mg = 1 mL, Injection, IV Push, q4hr PRN Pain, Routine, Start date 11/24/22 5:07:00 EDT, 11/24/22 5:07:00 EDT Consult to Orthopedics 2. Fall (W19.XXXA: Unspecified fall, initial encounter) Patient blames this on her neuropathy. She has had a number of falls over the past several months. She denies any lightheadedness, palpitations, denies any chest pain chest pain or shortness of breath and denies any focal neurologic deficits. Her following this occasion was described as being mechanical 3. Hypertension (I10: Essential (primary) hypertension) Awaiting reconciliation of her meds prior med list included Coreg and lisinopril. We will continue these agents provided patient does not have any decline in blood pressure with anesthesia with analgesics but will monitor. I will place parameters on Coreg with order to hold if heart rate less than 60 as patient does have a first-degree AV block however as suggested denies any near syncopal or presyncopal events. We will monitor on telemetry 4. Hyperlipidemia (E78.5: Hyperlipidemia, unspecified) Await reconciliation of home meds she was previously on Crestor if verified we will resume statin that we do not have Crestor on formulary 5. Diabetes (E11.9: Type 2 diabetes mellitus without complications) Patient did states she had a recent lower blood sugar of 69. Awaiting reconciliation of home meds if patient is on basal insulin we will hold this until we observe what her blood sugar response above is and as patient is n.p.o. use sliding scale 6. Anemia (D64.9: Anemia, unspecified) Patient has had a fluctuating hemoglobin 11.5 in August, greater than 12 in September. Patient has normocytic normochromic indices with normal RDW. With below ?bone marrow dysfunction vs other. Patient denies any heartburn she denies any blood in her stool. We will monitor closely her hemoglobin, if nonsteroidal anti-inflammatories are added to reduce her need for narcotics during the perioperative period, will assure stability 7. Thrombocytopenia (D69.6: Thrombocytopenia, unspecified) Patient is also had a fluctuating platelet count over the past year. This appears to be stable. Patient denies any excessive bleeding to suggest qualitative platelet dysfunction. Will monitor for stability especially will likely placed on DVT prophylaxis 8. Chronic GERD (K21.9: Gastro-esophageal reflux disease without esophagitis) Await confirmation of home meds. She was previously on a PPI we will continue if confirmed 9. Depression with anxiety (F41.8: Other specified anxiety disorders) Patient was previously on BuSpar and Paxil if confirmed we will continue as p.o. intake allow 10. Hypothyroidism (E03.9: Hypothyroidism, unspecified) Await reconciliation of home meds continue thyroid function studies. With first-degree AV block we will check thyroid function studies to assure adequately replaced Ordered: TSH With T4fr Reflex 11. Peripheral neuropathy (G62.9: Polyneuropathy, unspecified) Patient states she is no longer on gabapentin because this made her feel funny . She denies any acute recent worsening 12. Encounter for deep vein thrombosis (DVT) prophylaxis (Z29.9: Encounter for prophylactic measures, unspecified) Defer agent and timing EEG Arixtra Lovenox etc. to the surgical service as potentially influenced by Parveen on operating intervention and timing of such. We will order SCDs 13. Obesity (E66.9: Obesity, unspecified) Patient denies any history to suggest obstructive sleep apnea. We will watch closely as we give her analgesics Orders: acetaminophen, 650 mg = 2 tab(s), Tab, Oral, q6hr PRN Pain, Routine, Start date 11/24/22 5:09:00 EDT, 11/24/22 5:09:00 EDT glucose, 50 mL, Soln-IV, IV Push, Once PRN Blood glucose, Routine, Start date 11/24/22 5:33:00 EDT insulin lispro, 0-10 Unit(s), Injection-Insulin, SubCutaneous, q6hr, Routine, Start date 11/24/22 6:00:00 EDT ondansetron, 4 mg = 2 mL, Injection, IV Push, q6hr PRN Nausea, Routine, Start date 11/24/22 5:09:00 EDT, 11/24/22 5:09:00 EDT Sodium Chloride 0.9% intravenous solution 1,000 mL, 1,000 mL, IV, 50 mL/hr, Routine, Start date 11/24/22 5:09:00 EDT, 20 hour(s), Total volume (mL): 1,000, 64.6 kg, 1.7, m2 Basic Metabolic Panel Cardiac Monitoring CBC w/ Auto Diff Elevate Head of Bed Hypoglycemia Protocol Responsive Patient Hypoglycemia Protocol Unresponsive Patient Notify Provider Vital Signs Notify Provider Vital Signs NPO Diet Place in Status Place in Status Precautions Resuscitation Status - Full Routine Capillary Glucose POC Vital Signs Weight Patient is admitted as general inpatient with anticipation she will require greater than 2 midnight stay Extracted from: Title:ED Note Author:Hari Maritnez DO Date :11/24/22 Closed hip fracture (S72.009 A: Fracture of unspecified part of neck of unspecified femur, initial encounter for closed fracture) Fall (W19.XXXA: Unspecified fall, initial encounter) Orders: fentanyl, 50 microgram = 1 mL, Injection, IV Push, Once, Stop date 11/24/22 1:57:00 EDT, STAT, Start date 11/24/22 1:57:00 EDT, 11/24/22 1:57:00 EDT HYDROmorphone, 0.5 mg = 0.5 mL, Injection, IV Push, Once, Stop date 11/24/22 1:05:00 EDT, STAT, Start date 11/24/22 1:05:00 EDT, 11/24/22 1:05:00 EDT morphine, 4 mg = 2 mL, Injection, IV Push, Once, Stop date 11/24/22 0:40:00 EDT, STAT, Start date 11/24/22 0:40:00 EDT, 11/24/22 0:40:00 EDT orphenadrine, 60 mg = 2 mL, Injection, IntraMuscular, Once, Stop date 11/24/22 3:24:00 EDT, STAT, Start date 11/24/22 3:24:00 EDT, 11/24/22 3:24:00 EDT ABO/Rh ABO/Rh History Check Antibody Screen Automated Diff Basic Metabolic Panel Blood Bank ID# CBC w/ Auto Diff CT Pelvis w/o Contrast Drug Screen Urine ECG 12 Lead Adult ED Cardiac Monitoring eGFR Ethanol Level Hepatic Function Panel Lactic Acid Lipase Level NPO Diet Oxygen Therapy PT & PTT Pulse Oximetry Continuous Saline Lock Insert Troponin XR Chest Single View XR Hip 1 View Right + Pelvis Future Appointments Appointment Date:12/03/2022 09:00:00 AM Scheduled Provider:José MENESES MD Location:Extended Care Appointment Type:[facility] Future Scheduled Tests Radiology* NM Gastric Emptying Study 04/10/22 [facility]09-01-2023 NoteFisher [facility] CenterComment on above:Result Comment: Electronically Signed By: FALLON BANKS, Soni\.br\Date and Time Signed: 11/29/22 11:02 [id number] Hospital Discharge instructions Patient Education 11/28/2022 13:25:57 Hip Fracture Hip Fracture A hip fracture is a break in the upper part of the thigh bone (femur). This is usually the result of an injury, commonly a fall. What are the causes? This condition may be caused by: A direct hit or injury (trauma) to the side of the hip, such as from a fall or a car accident. What increases the risk? You are more likely to develop this condition if: You have poor balance or an unsteady walking pattern (gait). Certain conditions contribute to poor balance, including Parkinson disease and dementia. You have thinning or weakening of your bones, such as from osteopenia or osteoporosis. You have cancer that spreads to the leg bones. You have certain conditions that can weaken your bones, such as thyroid disorders, intestine disorders, or a lack (deficiency) of certain nutrients. You smoke. You take certain medicines, such as steroids. You have a history of broken bones. What are the signs or symptoms? Symptoms of this condition include: Pain over the injured hip. This is commonly felt on the side of the hip or in the front groin area. Stiffness, bruising, and swelling over the hip. Pain with movement of the leg, especially lifting it up. Pain often gets better with rest. Difficulty or inability to stand, walk, or use the leg to support body weight (put weight on the leg). The leg rolling outward when lying down. The affected leg being shorter than the other leg. How is this diagnosed? This condition may be diagnosed based on: Your symptoms. A physical exam. X-rays. These may be done: ?To confirm the diagnosis. ?To determine the type and location of the fracture. ?To check for other injuries. MRI or CT scans. These may be done if the fracture is not visible on an X-ray. How is this treated? Treatment for this condition depends on the severity and location of your fracture. In most cases, surgery is necessary. Surgery may involve: Repairing the fracture with a screw, nail, or jyotsna to hold the bone in place (open reduction and internal fixation, ORIF). Replacing the damaged parts of the femur with metal implants (hemiarthroplasty or arthroplasty). If your fracture is less severe, or if you are not eligible for surgery, you may have non-surgical treatment. Non-surgical treatment may involve: Using crutches, a walker, or a wheelchair until your health care provider says that you can support(bear) weight on your hip. Medicines to help reduce pain and swelling. Having regular X-rays to monitor your fracture and make sure that it is healing. Physical therapy. You may need physical therapy after surgery, too. Follow these instructions at home: Activity Do not use your injured leg to support your body weight until your health care provider says that you can. ?Follow standing and walking restrictions as told by your health care provider. ?Use crutches, a walker, or a wheelchair as directed. Avoid any activities that cause pain or irritation in your hip. Ask your health care provider what activities are safe for you. Do not drive or use heavy machinery until your health care provider approves. If physical therapy was prescribed, do exercises as told by your health care provider. General instructions Take [id number] and prescription medicines only as told by your health care provider. If directed, put ice on the injured area: ?Put ice in a plastic bag. ?Place a towel between your skin and the bag. ?Leave the ice on for 20 minutes, 2 3 times a day. Do not use any products that contain nicotine or tobacco, such as cigarettes and e-cigarettes. These can delay bone healing. If you need help quitting, ask your health care provider. Keep all follow-up visits as told by your health care provider. This is important. How is this prevented? To prevent falls at home: ?Use a cane, walker, or wheelchair as directed. ?Make sure your rooms and hallways are free of clutter, obstacles, and cords. ?Install grab bars in your bedroom and bathrooms. ?Always use handrails when going up and down stairs. ?Use nightlights around the house. Exercise regularly. Ask what forms of exercise are safe for you, such as walking and strength and balance exercises. Visit an eye doctor regularly to have your eyesight checked. This can help prevent falls. Make sure you get enough calcium and vitamin D. Do not use any products that contain nicotine or tobacco, such as cigarettes and e-cigarettes. If you need help quitting, ask your health care provider. Limit alcohol use. If you have an underlying condition that caused your hip fracture, work with your health care provider to manage your condition. Contact a health care provider if: Your pain gets worse or it does not get better with rest or medicine. You develop any of the following in your leg or foot: ?Numbness. ?Tingling. ?A change in skin color (discoloration). ?Skin feeling cold to the touch. Get help right away if: Your pain suddenly gets worse. You cannot move your hip. Summary A hip fracture is a break in the upper part of the thigh bone (femur). Treatment typically requires surgical management to restore stability and function to the hip. Pain medicine and icing of the affected leg can help manage pain and swelling. Follow directions astold by your health care provider. This information is not intended to replace advice given to you by your health care provider. Make sure you discuss any questions you have with your health care provider. Document Revised: 11/17/2020 Document Reviewed: 11/17/2020 [employer] Patient Education 2021 [employer]. Follow Up Care 11/24/2022 00:36:57 With:Marcelo Call Address: [address] [place] [address]- Business (1) When: only if needed With:Joaquim Noe Address: [address] [place] [address]- Business (1) When:2 to 4 weeks Comments:Call for followup appointment [facility]08-27-2023 [facility] HospitalComment on above:Result Comment: Electronically Signed By: Reymundo JORDAN DO\Date and Time Signed: 11/24/22 05:35 [id number] Evaluation + Plan note Extracted from: Title:ED Note Author:Raul Arnold DO Date: Patient left without being s een (Z53.21: Procedure and treatment not carried out due to patient leaving prior to being seen by health care provider) Orders: Automated Diff Basic Metabolic Panel CBC w/ Auto Diff eGFR Hepatic Function Panel Lipase Level UA With Cult Reflex Diagnostic Tests Pending * UA With Cult Reflex 10/02/22 Future Scheduled Tests Radiology* NM Gastric Emptying Study 04/10/22 [facility]06-07-2023 Hospital Discharge instructions Patient Education 09/04/2022 21:51:36 Cervical Sprain Cervical Sprain A cervical sprain is a stretch or tear in one or more of the ligaments in the neck. Ligaments are the tissues that connect bones. Cervical sprains can range from mild to severe. Severe cervical sprains can cause the spinal bones (vertebrae) in the neck to be unstable. This can result in spinal corddamage and in serious nervous system problems. The time that it takes for a cervical sprain to heal depends on the cause and extent of the injury.Most cervical sprains heal in 4 6 weeks. What are the causes? Cervical sprains may be caused by trauma, such as an injury from a motor vehicle accident, a fall, or a sudden forward and backward whipping movement of the head and neck (whiplash injury). Mild cervical sprains may be caused by wear and tear over time. What increases the risk? The following factors may make you more likely to develop this condition: Participating in activities that have a high risk of trauma to the neck. These include contact sports, auto racing, gymnastics, and diving. Taking risks when driving or riding in a motor vehicle. Osteoarthritis of the spine. Poor strength and flexibility of the neck. A previous neck injury. Poor posture. Spending long periods in certain positions that put stress on the neck, such as sitting at a computer for a long time. What are the signs or symptoms? Symptoms of this condition include: Pain, soreness, stiffness, tenderness, swelling, or a burning sensation in the front, back, or sides of the neck, shoulders, or upper back. Sudden tightening of neck muscles (spasms). Limited ability to move the neck. Headache. Dizziness. Nausea or vomiting. Weakness, numbness, or tingling in a hand or an arm. Symptoms may develop right away after injury, or they may develop over a few days. In some cases, symptoms may go away with treatment and return (recur) over time. How is this diagnosed? This condition may be diagnosed based on: Your medical history. Your symptoms. Any recent injuries or known neck problems that you have, such as arthritis in the neck. A physical exam. Imaging tests, such as X-rays, MRI, and CT scan. How is this treated? This condition is treated by resting and icing the injured area and doing physical therapy exercises. Heat therapy may be used 2 3 days after the injury occurred if there is no swelling. Depending onthe severity of your condition, treatment may also include: Keeping your neck in place (immobilized) for periods of time. This may be done using: ?A cervical collar. This supports your chin and the back of your head. ?A cervical traction device. This is a sling that holds up your head. The device removes weight andpressure from your neck, and it may help to relieve pain. Medicines that help to relieve pain and inflammation. Medicines that help to relax your muscles (muscle relaxants). Surgery. This is rare. Follow these instructions at home: Medicines Take jqsf-rqq-iotxaoe and prescription medicines only as told by your health care provider. Ask your health care provider if the medicine prescribed to you: ?Requires you to avoid driving or using heavy machinery. ?Can cause constipation. You may need to take these actions to prevent or treat constipation: ?Drink enough fluid to keep your urine pale yellow. ?Take alth-ezs-ymqrdwc or prescription medicines. ?Eat foods that are high in fiber, such as beans, whole grains, and fresh fruits and vegetables. ?Limit foods that are high in fat and processed sugars, such as fried or sweet foods. If you have a cervical collar: Wear the collar as told by your health care provider. Do not remove it unless told. Ask before making any adjustments to your collar. If you have long hair, keep it outside of the collar. Ask your health care provider if you may remove the collar for cleaning and bathing. If so: ?Follow instructions about how to remove it safely. ?Clean it by hand with mild soap and water and air-dry it completely. ?If your collar has removable pads, remove them every 1 2 days and wash them by hand with soap and water. Let them air-dry completely before putting them back in the collar. Tell your health care provider if your skin under the collar has irritation or sores. Managing pain, stiffness, and swelling If directed, use a cervical traction device as told. If directed, put ice on the affected area. To do this: ?Put ice in a plastic bag. ?Place a towel between your skin and the bag. ?Leave the ice on for 20 minutes, 2 3 times a day. If directed, apply heat to the affected area before you do your physical therapy or as often as told by your health care provider. Use the heat source that your health care provider recommends, such as a moist heat pack or a heating pad. ?Place a towel between your skin and the heat source. ?Leave the heat on for 20 30 minutes. ?Remove the heat if your skin turns bright red. This is especially important if you are unable to feel pain, heat, or cold. You may have a greater risk of getting burned. Activity Do not drive while wearing a cervical collar. If you do not have a cervical collar, ask if it is safe to drive while your neck heals. Do not lift anything that is heavier than 10 lb (4.5 kg), or the limit that you are told, until your health care provider says that it is safe. Rest as told by your health care provider. If physical therapy was prescribed, do exercises as told by your health care provider or physical therapist. Return to your normal activities as told by your health care provider. Avoid positions and activities that make your symptoms worse. Ask your health care provider what activities are safe for you. General instructions Do not use any products that contain nicotine or tobacco, such as cigarettes, e- cigarettes, and chewing tobacco. These can delay healing. If you need help quitting, ask your health care provider. Keep all follow-up visits as told by your health care provider or physical therapist. This is important. How is this prevented? To prevent a cervical sprain from happening again: Use and maintain good posture. Make any needed adjustments to your workstation to help you do this. Exercise regularly as told by your health care provider or physical therapist. Avoid risky activities that may cause a cervical sprain. Contact a health care provider if you have: Symptoms that get worse or do not get better after 2 weeks of treatment. Pain that gets worse or does not get better with medicine. New, unexplained symptoms. Sores or irritated skin on your neck from wearing your cervical collar. Get help right away if: You have severe pain. You develop numbness, tingling, or weakness in any part of your body. You cannot move a part of your body (you have paralysis). You have neck pain along with severe dizziness or headache. Summary A cervical sprain is a stretch or tear in one or more of the ligaments in the neck. Cervical sprains may be caused by trauma, such as an injury from a motor vehicle accident, a fall, or a sudden forward and backward whipping movement of the head and neck (whiplash injury). Symptoms may develop right away after injury, or they may develop over a few days. This condition may be treated with rest, ice, heat, medicines, physical therapy, and surgery. This information is not intended to replace advice given to you by your health care provider. Make sure you discuss any questions you have with your health care provider. Document Revised: 11/24/2019 Document Reviewed: 11/24/2019 [employer] Patient Education 2022 [employer]. 09/04/2022 21:51:36 Head Injury, Adult Head Injury, Adult There are many types of head injuries. Head injuries can be as minor as a small bump, or they can be a serious medical issue. More severe head injuries include: A jarring injury to the brain (concussion). A bruise (contusion) of the brain. This means there is bleeding in the brain that can cause swelling. A cracked skull (skull fracture). Bleeding in the brain that collects, clots, and forms a bump (hematoma). After a head injury, most problems occur within the first 24 hours, but side effects may occur up to 7 10 days after the injury. It is important to watch your condition for any changes. You may need to be observed in the emergency department or urgent care, or you may be admitted to the hospital. What are the causes? There are many possible causes of a head injury. Serious head injuries may be caused by car accidents, bicycle or motorcycle accidents, sports injuries, falls, or being struck by an object. What are the symptoms? Symptoms of a head injury include a contusion, bump, or bleeding at the site of the injury. Other physical symptoms may include: Headache. Nausea or vomiting. Dizziness. Blurred or double vision. Being uncomfortable around bright lights or loud noises. Seizures. Feeling tired. Trouble being awakened. Loss of consciousness. Mental or emotional symptoms may include: Irritability. Confusion and memory problems. Poor attention and concentration. Changes in eating or sleeping habits. Anxiety or depression. How is this diagnosed? This condition can usually be diagnosed based on your symptoms, a description of the injury, and a physical exam. You may also have imaging tests done, such as a CT scan or an MRI. How is this treated? Treatment for this condition depends on the severity and type of injury you have. The main goal of treatment is to prevent complications and allow the brain time to heal. Mild head injury If you have a mild head injury, you may be sent home, and treatment may include: Observation. A responsible adult should stay with you for 24 hours after your injury and check on you often. Physical rest. Brain rest. Pain medicines. Severe head injury If you have a severe head injury, treatment may include: Close observation. This includes hospitalization with the following care: ?Frequent physical exams. ?Frequent checks of how your brain and nervous system are working (neurological status). ?Checking your blood pressure and oxygen levels. Medicines to relieve pain, prevent seizures, and decrease brain swelling. Airway protection and breathing support. This may include using a ventilator. Treatments that monitor and manage swelling inside the brain. Brain surgery. This may be needed to: ?Remove a collection of blood or blood clots. ?Stop the bleeding. ?Remove a part of the skull to allow room for the brain to swell. Follow these instructions at home: Activity Rest and avoid activities that are physically hard or tiring. Make sure you get enough sleep. Let your brain rest by limiting activities that require a lot of thought or attention, such as: ?Watching TV. ?Playing memory games and puzzles. ?Job-related work or homework. ?Working on the computer, using social media, and texting. Avoid activities that could cause another head injury, such as playing sports, until your health care provider approves. Having another head injury, especially before the first one has healed, can bedangerous. Ask your health care provider when it is safe for you to return to your regular activities, including work or school. Ask your health care provider for a wfre-ft-ttvs plan for gradually returning to activities. Ask your health care provider when you can drive, ride a bicycle, or use heavy machinery. Your ability to react may be slower after a brain injury. Do not do these activities if you are dizzy. Lifestyle Do not drink alcohol until your health care provider approves. Do not use drugs. Alcohol and certain drugs may slow your recovery and can put you at risk of further injury. If it is harder than usual to remember things, write them down. If you are easily distracted, try to do one thing at a time. Talk with family members or close friends when making important decisions. Tell your friends, family, a trusted colleague, and floor worker well service about your injury, symptoms, and restrictions. Have them watch for any new or worsening problems. General instructions Take oyjs-lbk-edhjckv and prescription medicines only as told by your health care provider. Have someone stay with you for 24 hours after your head injury. This person should watch you for any changes in your symptoms and be ready to seek medical help. Keep all follow-up visits as told by your health care provider. This is important. How is this prevented? Work on improving your balance and strength to avoid falls. Wear a seat belt when you are in a moving vehicle. Wear a helmet when riding a bicycle, skiing, or doing any other sport or activity that has a risk of injury. If you drink alcohol: ?Limit how much you use to: ?0 1 drink a day for non women. ?0 2 drinks a day for men. ?Be aware of how much alcohol is in your drink. In the [place] one drink equals one 12 oz bottle of beer (355 mL), one 5 oz glass of wine (148 mL), or one 1 oz glass of hard liquor (44 mL). Take safety measures in your home, such as: ?Removing clutter and tripping hazards from floors and stairways. ?Using grab bars in bathrooms and handrails by stairs. ?Placing non-slip mats on floors and in bathtubs. ?Improving lighting in dim areas. Where to find more information Centers for Disease Control and Prevention: www.cdc.gov Get help right away if: You have: ?A severe headache that is not helped by medicine. ?Trouble walking or weakness in your arms and legs. ?Clear or bloody fluid coming from your nose or ears. ?Changes in your vision. ?A seizure. ?Increased confusion or irritability. Your symptoms get worse. You are sleepier than normal and have trouble staying awake. You lose your balance. Your pupils change size. Your speech is slurred. Your dizziness gets worse. You vomit. These symptoms may represent a serious problem that is an emergency. Do not wait to see if the symptoms will go away. Get medical help right away. Call your local emergency services (911 in the [place] Do not drive yourself to the hospital. Summary Head injuries can be minor, or they can be a serious medical issue requiring immediate attention. Treatment for this condition depends on the severity and type of injury you have. Have someone stay with you for 24 hours after your injury and check on you often. Ask your health care provider when it is safe for you to return to your regular activities, including work or school. Head injury prevention includes wearing a seat belt in a motor vehicle, using a helmet on a bicycle, limiting alcohol use, and taking safety measures in your home. This information is not intended to replace advice given to you by your health care provider. Make sure you discuss any questions you have with your health care provider. Document Revised: 01/28/2020 Document Reviewed: 01/28/2020 [employer] Patient Education 2022 [employer]. Follow Up Care 09/04/2022 20:22:40 With:Marcelo Link Address: [address], [facility] [address] [place] [address] [facility] (1) When:Within 3 Day(s) [facility]06-07-2023 Hospital Discharge instructions Patient Education 09/04/2022 19:32:42 RICE Therapy for Routine Care of Injuries, Dsdl-vv-Mxuk RICE Therapy for Routine Care of Injuries Many injuries can be cared for with rest, ice, compression, and elevation (RICE therapy). This includes: Resting the injured body part. Putting ice on the injury. Putting pressure (compression) on the injury. Raising the injured part (elevation). Using RICE therapy can help to lessen pain and swelling. Supplies needed: Ice. Plastic bag. Towel. Elastic bandage. Pillow or pillows to raise your injured body part. How to care for your injury with RICE therapy Rest Try to rest the injured part of your body. You can go back to your normal activities when your doctor says it is okay to do them and when you can do them without pain. If you rest the injury too much, it may not heal as well. Some injuries heal better with early movement instead of resting for too long. Ask your doctor if you should do exercises to help your injuryget better. Ice If told, put ice on the injured area. To do this: ?Put ice in a plastic bag. ?Place a towel between your skin and the bag. ?Leave the ice on for 20 minutes, 2 3 times a day. ?Take off the ice if your skin turns bright red. This is very important. If you cannot feel pain, heat, or cold, you have a greater risk of damage to the area. Do not put ice on your bare skin. Use ice for as many days as your doctor tells you to use it. Compression Put pressure on the injured area. This can be done with an elastic bandage. If this type of bandagehas been put on your injury: Follow instructions on the package the bandage came in about how to use it. Do not wrap the bandage too tightly. ?Wrap the bandage more loosely if part of your body beyond the bandage is blue, swollen, cold, painful, or loses feeling. Take off the bandage and put it on again every 3 4 hours or as told by your doctor. See your doctor if the bandage seems to make your problems worse. Elevation Raise the injured area above the level of your heart while you are sitting or lying down. Follow these instructions at home: If your symptoms get worse or last a long time, make a follow-up appointment with your doctor. You may need to have imaging tests, such as X-rays or an MRI. If you have imaging tests, ask how to get your results when they are ready. Return to your normal activities when your doctor says that it is safe. Keep all follow-up visits. Contact a doctor if: You keep having pain and swelling. Your symptoms get worse. Get help right away if: You have sudden, very bad pain at your injury or lower than your injury. You have redness or more swelling around your injury. You have tingling or numbness at your injury or lower than your injury, and it does not go away when you take off the bandage. Summary Many injuries can be cared for using rest, ice, compression, and elevation (RICE therapy). You can go back to your normal activities when your doctor says it is okay and when you can do themwithout pain. Put ice on the injured area as told by your doctor. Get help if your symptoms get worse or if you keep having pain and swelling. This information is not intended to replace advice given to you by your health care provider. Make sure you discuss any questions you have with your health care provider. Document Revised: 01/04/2021 Document Reviewed: 01/04/2021 [employer] Patient Education 2022 [employer]. 09/04/2022 19:32:42 Contusion, Qjnp-ew-Jjpy Contusion A contusion is a deep bruise. This is a result of an injury that causes bleeding under the skin. Symptoms of bruising include pain, swelling, and discolored skin. The skin may turn blue, purple, or yellow. Follow these instructions at home: Managing pain, stiffness, and swelling You may use RICE. This stands for: Resting. Icing. Compression, or putting pressure. Elevating, or raising the injured area. To follow this method, do these actions: Rest the injured area. If told, put ice on the injured area. ?Put ice in a plastic bag. ?Place a towel between your skin and the bag. ?Leave the ice on for 20 minutes, 2 3 times per day. If told, put light pressure (compression) on the injured area using an elastic bandage. Make sure the bandage is not too tight. If the area tingles or becomes numb, remove it and put it back on as told by your doctor. If possible, raise (elevate) the injured area above the level of your heart while you are sitting or lying down. General instructions Take baek-idr-acvhhae and prescription medicines only as told by your doctor. Keep all follow-up visits as told by your doctor. This is important. Contact a doctor if: Your symptoms do not get better after several days of treatment. Your symptoms get worse. You have trouble moving the injured area. Get help right away if: You have very bad pain. You have a loss of feeling (numbness) in a hand or foot. Your hand or foot turns pale or cold. Summary A contusion is a deep bruise. This is a result of an injury that causes bleeding under the skin. Symptoms of bruising include pain, swelling, and discolored skin. The skin may turn blue, purple, or yellow. This condition is treated with rest, ice, compression, and elevation. This is also called RICE. Youmay be given cnki-tmw-duzkvyq medicines for pain. Contact a doctor if you do not feel better, or you feel worse. Get help right away if you have verybad pain, have lost feeling in a hand or foot, or the area turns pale or cold. This information is not intended to replace advice given to you by your health care provider. Make sure you discuss any questions you have with your health care provider. Document Revised: 01/10/2022 Document Reviewed: 01/10/2022 [employer] Patient Education 2022 [employer]. Follow Up Care 09/04/2022 15:05:18 With:Marcelo Link Address: [address] [place] [address]- [facility] (1) When:09/07/2022 18:53:36 Comments:Follow-up with your primary care provider in 3 to 5 days. If symptoms worsen, do not improve, or new symptoms arise please report back to emergency department for further evaluation. [facility]06-07-2023 Evaluation + Plan noteExtracted from: Title:ED Note Author:Hari Martinez DO Date :09/04/22 Closed head injury Cervical strain Future Scheduled Tests Radiology* NM Gastric Emptying Study 04/10/22 [facility]05-12-2023 Hospital Discharge instructions Patient Education 08/09/2022 14:12:59 Head Injury, Adult Head Injury, Adult There are many types of head injuries. Head injuries can be as minor as a small bump, or they can be a serious medical issue. More severe head injuries include: A jarring injury to the brain (concussion). A bruise (contusion) of the brain. This means there is bleeding in the brain that can cause swelling. A cracked skull (skull fracture). Bleeding in the brain that collects, clots, and forms a bump (hematoma). After a head injury, most problems occur within the first 24 hours, but side effects may occur up to 7 10 days after the injury. It is important to watch your condition for any changes. You may need to be observed in the emergency department or urgent care, or you may be admitted to the hospital. What are the causes? There are many possible causes of a head injury. Serious head injuries may be caused by car accidents, bicycle or motorcycle accidents, sports injuries, falls, or being struck by an object. What are the symptoms? Symptoms of a head injury include a contusion, bump, or bleeding at the site of the injury. Other physical symptoms may include: Headache. Nausea or vomiting. Dizziness. Blurred or double vision. Being uncomfortable around bright lights or loud noises. Seizures. Feeling tired. Trouble being awakened. Loss of consciousness. Mental or emotional symptoms may include: Irritability. Confusion and memory problems. Poor attention and concentration. Changes in eating or sleeping habits. Anxiety or depression. How is this diagnosed? This condition can usually be diagnosed based on your symptoms, a description of the injury, and a physical exam. You may also have imaging tests done, such as a CT scan or an MRI. How is this treated? Treatment for this condition depends on the severity and type of injury you have. The main goal of treatment is to prevent complications and allow the brain time to heal. Mild head injury If you have a mild head injury, you may be sent home, and treatment may include: Observation. A responsible adult should stay with you for 24 hours after your injury and check on you often. Physical rest. Brain rest. Pain medicines. Severe head injury If you have a severe head injury, treatment may include: Close observation. This includes hospitalization with the following care: ?Frequent physical exams. ?Frequent checks of how your brain and nervous system are working (neurological status). ?Checking your blood pressure and oxygen levels. Medicines to relieve pain, prevent seizures, and decrease brain swelling. Airway protection and breathing support. This may include using a ventilator. Treatments that monitor and manage swelling inside the brain. Brain surgery. This may be needed to: ?Remove a collection of blood or blood clots. ?Stop the bleeding. ?Remove a part of the skull to allow room for the brain to swell. Follow these instructions at home: Activity Rest and avoid activities that are physically hard or tiring. Make sure you get enough sleep. Let your brain rest by limiting activities that require a lot of thought or attention, such as: ?Watching TV. ?Playing memory games and puzzles. ?Job-related work or homework. ?Working on the computer, using social media, and texting. Avoid activities that could cause another head injury, such as playing sports, until your health care provider approves. Having another head injury, especially before the first one has healed, can bedangerous. Ask your health care provider when it is safe for you to return to your regular activities, including work or school. Ask your health care provider for a hznc-vt-vzyi plan for gradually returning to activities. Ask your health care provider when you can drive, ride a bicycle, or use heavy machinery. Your ability to react may be slower after a brain injury. Do not do these activities if you are dizzy. Lifestyle Do not drink alcohol until your health care provider approves. Do not use drugs. Alcohol and certain drugs may slow your recovery and can put you at risk of further injury. If it is harder than usual to remember things, write them down. If you are easily distracted, try to do one thing at a time. Talk with family members or close friends when making important decisions. Tell your friends, family, a trusted colleague, and floor worker well service about your injury, symptoms, and restrictions. Have them watch for any new or worsening problems. General instructions Take arwx-ico-ptdprny and prescription medicines only as told by your health care provider. Have someone stay with you for 24 hours after your head injury. This person should watch you for any changes in your symptoms and be ready to seek medical help. Keep all follow-up visits as told by your health care provider. This is important. How is this prevented? Work on improving your balance and strength to avoid falls. Wear a seat belt when you are in a moving vehicle. Wear a helmet when riding a bicycle, skiing, or doing any other sport or activity that has a risk of injury. If you drink alcohol: ?Limit how much you use to: ?0 1 drink a day for non women. ?0 2 drinks a day for men. ?Be aware of how much alcohol is in your drink. In the [place] one drink equals one 12 oz bottle of beer (355 mL), one 5 oz glass of wine (148 mL), or one 1 oz glass of hard liquor (44 mL). Take safety measures in your home, such as: ?Removing clutter and tripping hazards from floors and stairways. ?Using grab bars in bathrooms and handrails by stairs. ?Placing non-slip mats on floors and in bathtubs. ?Improving lighting in dim areas. Where to find more information Centers for Disease Control and Prevention: www.cdc.gov Get help right away if: You have: ?A severe headache that is not helped by medicine. ?Trouble walking or weakness in your arms and legs. ?Clear or bloody fluid coming from your nose or ears. ?Changes in your vision. ?A seizure. ?Increased confusion or irritability. Your symptoms get worse. You are sleepier than normal and have trouble staying awake. You lose your balance. Your pupils change size. Your speech is slurred. Your dizziness gets worse. You vomit. These symptoms may represent a serious problem that is an emergency. Do not wait to see if the symptoms will go away. Get medical help right away. Call your local emergency services (911 in the [place] Do not drive yourself to the hospital. Summary Head injuries can be minor, or they can be a serious medical issue requiring immediate attention. Treatment for this condition depends on the severity and type of injury you have. Have someone stay with you for 24 hours after your injury and check on you often. Ask your health care provider when it is safe for you to return to your regular activities, including work or school. Head injury prevention includes wearing a seat belt in a motor vehicle, using a helmet on a bicycle, limiting alcohol use, and taking safety measures in your home. This information is not intended to replace advice given to you by your health care provider. Make sure you discuss any questions you have with your health care provider. Document Revised: 01/28/2020 Document Reviewed: 01/28/2020 [employer] Patient Education 2022 [employer] 08/09/2022 14:12:59 Fall Prevention in Hospitals, Adult Fall Prevention in Hospitals, Adult Being a patient in the hospital puts you at risk for falling. Falls can cause serious injury and harm, but they can be prevented. It is important to understand what puts you at risk for falling and what you and your health care team can do to prevent you from falling. If you or a loved one falls inthe hospital, it is important to tell the hospital staff about it. What increases my risk? Certain conditions and treatments may increase your risk of falling in the hospital. These include: Being in an unfamiliar environment, especially when using the bathroom at night. Having surgery. Being on bed rest. Taking many medicines or certain types of medicines, such as sleeping pills. Having tubes in place, such as IV lines or catheters. Other risk factors for falls in a hospital include: Having difficulty with hearing or vision. Having a change in thinking or behavior, such as confusion. Having depression. Having trouble with balance or feeling dizzy. Needing to use the toilet frequently. Having fallen during the past 3 months. Having low blood pressure. What are some strategies for preventing falls? If you or a loved one has to stay in the hospital: Ask about which fall prevention strategies will be in place. Speak up if the fall prevention plan changes. Ask for help moving around, especially after surgery or when not feeling well. If you have been asked to call for help when getting up, do not get up by yourself. Asking for helpto get up is for your safety, and the staff is there to help you. Wear nonskid footwear. Get up slowly, and sit at the side of the bed for a few minutes before standing up. Keep items you need close to you, such as the nurse call button or a phone, so that you do not needto reach for them. Wear eyeglasses or hearing aids if they have been prescribed. Have someone stay in the hospital with you or your loved one. Ask if sleeping pills or other medicines that can cause confusion are necessary. What does the hospital staff do to help prevent falls? Hospitals have systems in place to prevent falls and accidents, which may involve: Discussing your fall risks and making a personalized fall prevention plan. Checking in regularly to see if you need help. Placing an arm band on your wrist or a sign near your room to alert other staff of your needs. Using an alarm on your hospital bed. This is an alarm that goes off if you get out of bed and forget to call for help. Keeping the bed in a low and locked position. Keeping the area around the bed and bathroom well-lit and free from clutter. Keeping your room quiet, so that you can sleep and be well rested. Using safety equipment, such as: ?A belt around your waist. ?Walkers, crutches, and other devices for support. ?Safety beds, such as low beds, or cushions on the floor next to the bed. Having a staff person stay with you (one-on-one observation), even when you are using the bathroom.This is for your safety. Using video monitoring. This allows a staff member to come to you if you need help. What other actions can I take to lower my risk of falls? Check in regularly with your health care provider or pharmacist to review all medicines that you take. Make sure that you have a regular exercise program to stay fit. This will help you maintain your balance. Talk with a physical therapist or labor trainer if recommended by your health care provider. He or she can help you improve your strength, balance, and endurance. If you are over age 65: ?Ask your health care provider if you need a calcium or vitamin D supplement. ?Have your eyes and hearing checked every year. ?Have your feet checked every year. Where to find more information Centers for Disease Control and Prevention: www.cdc.gov Summary Being in an unfamiliar environment, such as the hospital, increases your risk for falling. If you have been asked to call for help when getting up, do not get up by yourself. Asking for helpto get up is for your safety, and the staff is there to help you. Ask about which fall prevention strategies will be in place. Speak up if the fall prevention plan changes. If you or a loved one falls, tell the hospital staff. This is important. This information is not intended to replace advice given to you by your health care provider. Make sure you discuss any questions you have with your health care provider. Document Revised: 10/18/2020 Document Reviewed: 10/18/2020 [employer] Patient Education 2022 [employer]. Follow Up Care 08/09/2022 12:15:41 With:Marcelo Link Address: [address] [place] [address]- Business (1) When:08/12/2022 14:11:58 Comments:Call the office of your primary care doctor to arrange for follow-up within the above-stated timeframe. Follow-up with your primary care doctor about this ED visit. You should review your labs, imaging, and diagnoses from this ED visit with your primary care physician. There are occasionally non-emergent findings that require additional follow-up after your ED visit. If you were prescribed medications you should discuss possible side-effects and drug interactions with your pharmacist. Call 911 or go to the nearest Emergency Department if you develop any new or worsening symptoms.Seek immediate medical attention if you develop: new or worsening headache, nausea, vomiting, confusion, weakness, loss of motion in your arms or legs, loss of control of your urine or stool, difficulty waking from sleep, or any new or worsening symptoms. [facility]05-12-2023 Evaluation + Plan noteExtracted from: Title:ED Note Author:Raul Arnold DO Date: Accidental fall (W19.XXXA: U nspecified fall, initial encounter) Closed head injury (S09.90XA: Unspecified injury of head, initial encounter) Orders: acetaminophen-oxycodone, 1 tab(s), Tab, Oral, Once, Stop date 08/09/22 13:54:00 EDT, STAT, Start date 08/09/22 13:54:00 EDT morphine, 2 mg = 1 mL, Injection, IV Push, Once, Stop date 08/09/22 12:22:00 EDT, STAT, Start date 08/09/22 12:22:00 EDT, 08/09/22 12:22:00 EDT ondansetron, 4 mg = 2 mL, Injection, IV Push, Once, Stop date 08/09/22 12:22:00 EDT, STAT, Start date 08/09/22 12:22:00 EDT, 08/09/22 12:22:00 EDT Sodium Chloride 0.9% intravenous solution, 1,000 mL, Soln-IV, IV, Once, Stop date 08/09/22 12:22:00 EDT, STAT, Start date 08/09/22 12:22:00 EDT, Infuse over 61, minute(s) Automated Diff Basic Metabolic Panel CBC w/ Auto Diff Cervical Collar Consult to General Surgery CT Head or Brain w/o Contrast CT Spine Cervical w/o Contrast ECG 12 Lead Adult ED Cardiac Monitoring eGFR Extra SST Tube Hepatic Function Panel Lactic Acid PT & PTT Pulse Oximetry Continuous Saline Lock Insert Troponin UA With Cult Reflex XR Chest Single View Future Scheduled Tests Radiology* NM Gastric Emptying Study 04/10/22 [facility]04-21-2023 Hospital Discharge instructions Patient Education 07/18/2022 23:33:46 Shoulder Pain Shoulder Pain Many things can cause shoulder pain, including: An injury to the shoulder. Overuse of the shoulder. Arthritis. The source of the pain can be: Inflammation. An injury to the shoulder joint. An injury to a tendon, ligament, or bone. Follow these instructions at home: Pay attention to changes in your symptoms. Let your health care provider know about them. Follow these instructions to relieve your pain. If you have a sling: Wear the sling as told by your health care provider. Remove it only as told by your health care provider. Loosen the sling if your fingers tingle, become numb, or turn cold and blue. Keep the sling clean. If the sling is not waterproof: ?Do not let it get wet. Remove it to shower or bathe. Move your arm as little as possible, but keep your hand moving to prevent swelling. Managing pain, stiffness, and swelling If directed, put ice on the painful area: ?Put ice in a plastic bag. ?Place a towel between your skin and the bag. ?Leave the ice on for 20 minutes, 2 3 times per day. Stop applying ice if it does not help with thepain. Squeeze a soft ball or a foam pad as much as possible. This helps to keep the shoulder from swelling. It also helps to strengthen the arm. General instructions Take lvxn-ywg-gxrvcyh and prescription medicines only as told by your health care provider. Keep all follow-up visits as told by your health care provider. This is important. Contact a health care provider if: Your pain gets worse. Your pain is not relieved with medicines. New pain develops in your arm, hand, or fingers. Get help right away if: Your arm, hand, or fingers: ?Tingle. ?Become numb. ?Become swollen. ?Become painful. ?Turn white or blue. Summary Shoulder pain can be caused by an injury, overuse, or arthritis. Pay attention to changes in your symptoms. Let your health care provider know about them. This condition may be treated with a sling, ice, and pain medicines. Contact your health care provider if the pain gets worse or new pain develops. Get help right away if your arm, hand, or fingers tingle or become numb, swollen, or painful. Keep all follow-up visits as told by your health care provider. This is important. This information is not intended to replace advice given to you by your health care provider. Make sure you discuss any questions you have with your health care provider. Document Revised: 11/30/2021 Document Reviewed: 11/30/2021 [employer] Patient Education 2022 [employer]. 07/18/2022 23:33:46 Hip Pain Hip Pain The hip is the joint between the upper legs and the lower pelvis. The bones, cartilage, tendons, and muscles of your hip joint support your body and allow you to move around. Hip pain can range from a minor ache to severe pain in one or both of your hips. The pain may be felt on the inside of the hip joint near the groin, or on the outside near the buttocks and upper thigh. You may also have swelling or stiffness in your hip area. Follow these instructions at home: Managing pain, stiffness, and swelling If directed, put ice on the painful area. To do this: ?Put ice in a plastic bag. ?Place a towel between your skin and the bag. ?Leave the ice on for 20 minutes, 2 3 times a day. If directed, apply heat to the affected area as often as told by your health care provider. Use theheat source that your health care provider recommends, such as a moist heat pack or a heating pad. ?Place a towel between your skin and the heat source. ?Leave the heat on for 20 30 minutes. ?Remove the heat if your skin turns bright red. This is especially important if you are unable to feel pain, heat, or cold. You may have a greater risk of getting burned. Activity Do exercises as told by your health care provider. Avoid activities that cause pain. General instructions Take aoad-vkd-vlrsoju and prescription medicines only as told by your health care provider. Keep a journal of your symptoms. Write down: ?How often you have hip pain. ?The location of your pain. ?What the pain feels like. ?What makes the pain worse. Sleep with a pillow between your legs on your most comfortable side. Keep all follow-up visits as told by your health care provider. This is important. Contact a health care provider if: You cannot put weight on your leg. Your pain or swelling continues or gets worse after one week. It gets harder to walk. You have a fever. Get help right away if: You fall. You have a sudden increase in pain and swelling in your hip. Your hip is red or swollen or very tender to touch. Summary Hip pain can range from a minor ache to severe pain in one or both of your hips. The pain may be felt on the inside of the hip joint near the groin, or on the outside near the buttocks and upper thigh. Avoid activities that cause pain. Write down how often you have hip pain, the location of the pain, what makes it worse, and what it feels like. This information is not intended to replace advice given to you by your health care provider. Make sure you discuss any questions you have with your health care provider. Document Revised: 08/02/2019 Document Reviewed: 08/02/2019 [employer] Patient Education 2022 [employer]. 07/18/2022 23:33:46 Fall Prevention in the Home, Adult, [place] Fall Prevention in the Home, Adult Falls can cause injuries and can happen to people of all ages. There are many things you can do to make your home safe and to help prevent falls. Ask for help when making these changes. What actions can I take to prevent falls? General Instructions Use good lighting in all rooms. Replace any light bulbs that burn out. Turn on the lights in dark areas. Use night-lights. Keep items that you use often in mmda-ts-pcpsv places. Lower the shelves around your home if needed. Set up your furniture so you have a clear path. Avoid moving your furniture around. Do not have throw rugs or other things on the floor that can make you trip. Avoid walking on wet floors. If any of your floors are uneven, fix them. Add color or contrast paint or tape to clearly radha and help you see: ?Grab bars or handrails. ?First and last steps of staircases. ?Where the edge of each step is. If you use a stepladder: ?Make sure that it is fully opened. Do not climb a closed stepladder. ?Make sure the sides of the stepladder are locked in place. ?Ask someone to hold the stepladder while you use it. Know where your pets are when moving through your home. What can I do in the bathroom? Keep the floor dry. Clean up any water on the floor right away. Remove soap buildup in the tub or shower. Use nonskid mats or decals on the floor of the tub or shower. Attach bath mats securely with double-sided, nonslip rug tape. If you need to sit down in the shower, use a plastic, nonslip stool. Install grab bars by the toilet and in the tub and shower. Do not use towel bars as grab bars. What can I do in the bedroom? Make sure that you have a light by your bed that is easy to reach. Do not use any sheets or blankets for your bed that hang to the floor. Have a firm chair with side arms that you can use for support when you get dressed. What can I do in the kitchen? Clean up any spills right away. If you need to reach something above you, use a step stool with a grab bar. Keep electrical cords out of the way. Do not use floor armenian or wax that makes floors slippery. What can I do with my stairs? Do not leave any items on the stairs. Make sure that you have a light switch at the top and the bottom of the stairs. Make sure that there are handrails on both sides of the stairs. Fix handrails that are broken or loose. Install nonslip stair treads on all your stairs. Avoid having throw rugs at the top or bottom of the stairs. Choose a carpet that does not hide the edge of the steps on the stairs. Check carpeting to make sure that it is firmly attached to the stairs. Fix carpet that is loose or worn. What can I do on the outside of my home? Use bright outdoor lighting. Fix the edges of walkways and driveways and fix any cracks. Remove anything that might make you trip as you walk through a door, such as a raised step or threshold. Trim any bushes or trees on paths to your home. Check to see if handrails are loose or broken and that both sides of all steps have handrails. Install guardrails along the edges of any raised decks and porches. Clear paths of anything that can make you trip, such as tools or rocks. Have leaves, snow, or ice cleared regularly. Use sand or salt on paths during winter. Clean up any spills in your garage right away. This includes grease or oil spills. What other actions can I take? Wear shoes that: ?Have a low heel. Do not wear high heels. ?Have rubber bottoms. ?Feel good on your feet and fit well. ?Are closed at the toe. Do not wear open-toe sandals. Use tools that help you move around if needed. These include: ?Canes. ?Walkers. ?Scooters. ?Crutches. Review your medicines with your doctor. Some medicines can make you feel dizzy. This can increase your chance of falling. Ask your doctor what else you can do to help prevent falls. Where to find more information Centers for Disease Control and Prevention, [employer]: www.cdc.gov [employer] [place] on Aging: www.britany.nih.gov Contact a doctor if: You are afraid of falling at home. You feel weak, drowsy, or dizzy at home. You fall at home. Summary There are many simple things that you can do to make your home safe and to help prevent falls. Ways to make your home safe include removing things that can make you trip and installing grab barsin the bathroom. Ask for help when making these changes in your home. This information is not intended to replace advice given to you by your health care provider. Make sure you discuss any questions you have with your health care provider. Document Revised: 12/17/2021 Document Reviewed: 10/18/2020 [employer] Patient Education 2022 [employer]. Follow Up Care 07/18/2022 22:27:53 With:Marcelo Link Address: [address] [place] [address]- [facility] (1) When:07/21/2022 Comments:Contact ibuprofen, Tylenol at home as needed for pain every 6 hours. Please follow-up with your primary care doctor in the next 2 to 3 days. Please return to the ED for any new or worsening symptoms or [facility]04-20-2023 History of Present illness Narrative* Naseem Hardy MD - 07/18/2022 4:32 PM EDT Images from the original note were not included. EMERGENCY TRIAGE, TREAT AND TRANSPORT (ET3) DOCUMENTATION OF TELEHEALTH VISIT Date / Time: 07/18/20225 Name: Fartun Myers NOTE: CORRECT SPELLING MAY BE ZACH : 1955 SSN: (Not on file) EMS Agency: [facility] [x] Verbal consent obtained [] Implied consent - patient with potential emergency medical condition requiring assessment of capacity to refuse treatment and/or transport VITAL SIGNS: see flowsheet documentation Reason for Telehealth Visit: Chief Complaint Patient presents with Hypertension History of Present Illness: 66 year old female, hx DM, anxiety Called 911 when she felt her BP was high. She thought someone was breaking into her house and became anxious. Denies CP, SOB. Pt st mild frontal headache that is gone now. Additional pertinent PMHx, SocHx, FamHx: Pmhx DM, anxiety, HTN Meds: unsure Soc : no tob, no etoh Review of Systems: Denies the following: neck pain, back pain, dizziness, lightheadedness, chest pain, cough, difficulty breathing, fever, nausea/vomiting, dysuria, leg pain or swelling, new weakness. No recent falls or injury. Exam: General: Awake, no distress, ambulating without walker. ENT: normocephalic, atraumatic Pulmonary: No respiratory distress Cardiovascular: Well perfused Neurologic: Oriented to person, place, time and events. Moving all extremities equally. Psychiatric: Appropriate. Good insight and judgement. Medical Decision Making: This is a 66-year-old female who was concerned about her blood pressure being elevated. This occurred after she became anxious. Her anxiety now has improved. She complained of a mild headache earlierthat has also resolved. Patient states she feels at her normal baseline. She is able to ambulate ather normal baseline, and states that the chronic neuropathy in her legs is unchanged. EMS states the y are at her residence frequently, they feel they know her well, and that she appears at her normalbaseline. Her blood sugar was elevated at 301. Patient states that she is been having more sugar intake and will work harder to be compliant with her medications and diet. I asked her to follow up with the primary care provider. I discussed warning signs of dangerous hypertension and asked her to call 911 if she had any concerns or worsening symptoms. There were no further questions from the patient or EMS crew. Disposition Supported by Telehealth Assessment: ET3 transport decisions: Treat in place EMS Disposition Reported: Same ET3 Encounter Completed by: Naseem Hardy MD documented in this [id number] Evaluation + Plan note Extracted from: Title:ED Note Author:Ty Manrique DO Date :07/18/22 Accidental fall (W19.XXXA: U nspecified fall, initial encounter) Acute pain of left hip (M25.552: Pain in left hip) Acute pain of left shoulder (M25.512: Pain in left shoulder) Orders: acetaminophen-hydrocodone, 1 tab(s), Tab, Oral, Once, Stop date 07/18/22 22:45:00 EDT, STAT, Start date 07/18/22 22:45:00 EDT ECG 12 Lead Adult XR Hip 2-3 Views Left + Pelvis XR Shoulder Complete Left Future Scheduled Tests Radiology* [place] Gastric Emptying Study 04/10/22 [facility]02-10-2023 Note [id number]:[id number] 04-10-2022 Evaluation + Plan note Future Scheduled Tests Radiology* [place] Gastric Emptying Study 04/10/22 [facility]01-04-2023 Hospital Discharge instructions Patient Education 04/03/2022 18:32:58 Contusion Contusion A contusion is a deep bruise. Contusions are the result of a blunt injury to tissues and muscle fibers under the skin. The injury causes bleeding under the skin. The skin overlying the contusion may turn blue, purple, or yellow. Minor injuries will give you a painless contusion, but more severe injuries cause contusions that may stay painful and swollen for a few weeks. Follow these instructions at home: Pay attention to any changes in your symptoms. Let your health care provider know about them. Take these actions to relieve your pain. Managing pain, stiffness, and swelling Use resting, icing, applying pressure (compression), and raising (elevating) the injured area. Thisis often called the RICE strategy. ?Rest the injured area. Return to your normal activities as told by your health care provider. Ask your health care provider what activities are safe for you. ?If directed, put ice on the injured area: ?Put ice in a plastic bag. ?Place a towel between your skin and the bag. ?Leave the ice on for 20 minutes, 2 3 times per day. ?If directed, apply light compression to the injured area using an elastic bandage. Make sure the bandage is not wrapped too tightly. Remove and reapply the bandage as directed by your health care provider. ?If possible, raise (elevate) the injured area above the level of your heart while you are sitting or lying down. General instructions Take orbx-eun-dhcpcij and prescription medicines only as told by your health care provider. Keep all follow-up visits as told by your health care provider. This is important. Contact a health care provider if: Your symptoms do not improve after several days of treatment. Your symptoms get worse. You have difficulty moving the injured area. Get help right away if: You have severe pain. You have numbness in a hand or foot. Your hand or foot turns pale or cold. Summary A contusion is a deep bruise. Contusions are the result of a blunt injury to tissues and muscle fibers under the skin. It is treated with rest, ice, compression, and elevation. You may be given vuhh-xsn-jtshsgn medicines for pain. Contact a health care provider if your symptoms do not improve, or get worse. Get help right away if you have severe pain, have numbness, or the area turns pale or cold. This information is not intended to replace advice given to you by your health care provider. Make sure you discuss any questions you have with your health care provider. Document Released: 12/25/2005 Document Revised: 11/05/2018 Document Reviewed: 11/05/2018 [employer] Patient Education 2020 [employer] Follow Up Care 04/03/2022 16:34:06 With:Marcelo Link Address: [address] [place] [address]- Business (1) When:04/06/2022 18:32:44 Comments:Call the office of your primary care doctor to arrange for follow-up within the above-stated timeframe. Follow-up with your primary care doctor about this ED visit. You should review your labs, imaging, and diagnoses from this ED visit with your primary care physician. If you were prescribed medications you should discuss possible side-effects and drug interactions with your pharmacist. Call 911 or go to the nearest Emergency Department if you develop any new or worsening symptoms. [facility]01-04-2023 Evaluation + Plan noteExtracted from: Title:ED Note Author:Vinayak Cardoso PA-C te:04/03/22 Accidental fall (W19.XXXA: U nspecified fall, initial encounter) Contusion of left shoulder (S40.012A: Contusion of left shoulder, initial encounter) Left against medical advice (Z53.29: Procedure and treatment not carried out because of patient's decision for other reasons) Orders: acetaminophen, 650 mg = 2 tab(s), Tab, Oral, Once, Stop date 04/03/22 18:16:00 EST, STAT, Start date 04/03/22 18:16:00 EST, 04/03/22 18:16:00 EST XR Hip 2-3 Views Left + Pelvis XR Shoulder Complete Left Future Appointments Appointment Date:04/10/2022 10:15:00 AM Scheduled Provider:London DIAZ MD Location:[facility] Appointment Type:[facility] Follow Up [facility]01-03-2023 Evaluation + Plan noteExtracted from: Title:ED Note Author:Brady Marinelli DO Date:04/02 Contusion of hip (S70.00XA: Contusion of unspecified hip, initial encounter) Elbow contusion (S50.00XA: Contusion of unspecified elbow, initial encounter) Orders: XR Elbow 3+ Views Left XR Hip 2-3 Views Left + Pelvis Future Appointments Appointment Date:04/10/2022 10:15:00 AM Scheduled Provider:London DIAZ MD Location:[facility] Dig[facility] Health Appointment Type:BAD Follow Up [facility]01-03-2023 Hospital Discharge instructions Patient Education 04/02/2022 11:03:46 Hip Sprain Hip Sprain A hip sprain is a stretch or tear in one of the strong bands of tissue (ligaments) that connect thehip bone to the hip joint and pelvis. There are three types of hip sprains: A grade 1 sprain is a mildly stretched ligament. This injury causes pain and swelling, but the joint remains stable. A grade 2 sprain is a partial ligament tear. This injury may cause the hip joint to become looser (joint laxity). A grade 3 sprain is a complete ligament tear. This can make the hip joint unmovable and unstable. What are the causes? This condition may be caused by: A sudden injury (acute sprain). This can result from falling or severely twisting your hip joint. These injuries usually involve a large force placed on the joint. An overuse injury. This type of injury occurs gradually over time from repeatedly doing activities that put stress on your hip ligaments and muscles. This injury usually involves small amounts of stress repeatedly placed on the joint. What increases the risk? You are more likely to develop this condition if: You had a previous hip injury. Your hip joint is weak or stiff or you lack flexibility. You play contact sports. You are at risk for falling. You are overweight or do not get regular exercise. You try to do too much too quickly. You do not warm up properly before activity. What are the signs or symptoms? Symptoms of this condition include: Hip pain. Pain that gets worse with movement or weight bearing. Swelling or bruising at the hip joint. Difficulty moving the hip. Instability of the hip. Tingling or numbness in the leg. Muscle weakness in the hip or leg. Hearing a noise like a pop or feeling a tear at the time of the injury. How is this diagnosed? This condition may be diagnosed based on: Your symptoms and history of an injury or activity that puts stress on the hip. A physical exam. The health care provider will check the movement, muscle strength, and stability of your hip. Imaging tests such as an X-ray or MRI. These tests can show how severe the sprain is and can be used to rule out a broken bone. How is this treated? At first, this condition may be treated by resting and icing the hip. Your health care provider mayalso recommend taking a nonsteroidal anti-inflammatory drug (NSAID) to reduce pain and swelling. Additional treatment depends on the severity of the sprain. A grade 1 or 2 sprain may only need treatment with rest, ice, and medicine. A grade 3 sprain may require surgery to repair the ligament. You may also need to do certain exercises to strengthen muscles and maintain full movement (physical therapy). Follow these instructions at home: Managing pain, stiffness, and swelling If directed, put ice on your hip: ?Put ice in a plastic bag. ?Place a towel between your skin and the bag. ?Leave the ice on for 20 minutes, 2 3 times a day. Move your toes and bend your knee often to reduce stiffness and swelling. Activity Avoid activities that cause hip pain. Return to your normal activities as told by your health care provider. Ask your health care provider what activities are safe for you. Do physical therapy exercises as told by your health care provider. General instructions Take ychr-ctc-aemnoek and prescription medicines only as told by your health care provider. Ask your health care provider if the medicine prescribed to you: ?Requires you to avoid driving or using heavy machinery. ?Can cause constipation. You may need to take actions to prevent or treat constipation, such as: ?Drink enough fluid to keep your urine pale yellow. ?Take jmpg-krf-eljuydk or prescription medicines. ?Eat foods that are high in fiber, such as beans, whole grains, and fresh fruits and vegetables. ?Limit foods that are high in fat and processed sugars, such as fried or sweet foods. Do not use any products that contain nicotine or tobacco, such as cigarettes, e- cigarettes, and chewing tobacco. These can delay healing. If you need help quitting, ask your health care provider. Keep all follow-up visits as told by your health care provider. This is important. Contact a health care provider if: Your pain, bruising, or swelling gets worse. You develop any new symptoms. Your symptoms are not improving at home. Get help right away if: You have excessive swelling. Your hip feels very unstable. You have a loss of feeling in the hip or leg. Your skin changes color in the affected area. Summary A hip sprain is an injury to a ligament in your hip. It can range from a mild stretch to a completetear. A hip sprain can be caused by an acute injury or repetitive stress. Symptoms include pain, swelling, and bruising. Rest and icing are the first treatments for a hip sprain. Other treatments depend on the severity of the sprain. This information is not intended to replace advice given to you by your health care provider. Make sure you discuss any questions you have with your health care provider. Document Released: 11/05/2018 Document Revised: 07/08/2019 Document Reviewed: 11/05/2018 [employer] Patient Education 2020 [employer] 04/02/2022 11:03:46 Elbow Contusion Elbow Contusion An elbow contusion is a deep bruise of the elbow. Contusions are the result of a blunt injury to tissues and muscle fibers under the skin. The injury causes bleeding under the skin. The skin overlying the contusion may turn blue, purple, or yellow. Minor injuries will give you a painless contusion,but more severe contusions may stay painful and swollen for a few weeks. What are the causes? Common causes of this condition include: A hard hit to the elbow. An injury (trauma) to the elbow. Direct force on the elbow, such as from a fall. What increases the risk? You are more likely to develop this condition if you: Play sports or do other physical activities. Use blood thinners. What are the signs or symptoms? Symptoms of this condition include: Swelling of the elbow. Pain and tenderness of the elbow. Discoloration of the elbow. The area may have redness and then turn blue, purple, or yellow. How is this diagnosed? This condition is diagnosed based on: Your symptoms and medical history. A physical exam. You may also need an X-ray to determine if there are any associated injuries, such as broken bones (fractures). An MRI might be done if the swelling and pain do not go away in a few weeks. How is this treated? This condition may be treated with: Rest, ice, pressure (compression), and elevation. This is often called RICE therapy. In general, this is considered the best treatment for this condition. A sling or splint to support your injury. Mgxx-gkz-sitdash anti-inflammatory medicines, such as ibuprofen, for pain control. Mpcfy-ks-ofjztb exercises. Follow these instructions at home: RICE therapy Rest the injured area. If directed, put ice on the injured area: ?If you have a removable sling or splint, remove it as told by your health care provider. ?Put ice in a plastic bag. ?Place a towel between your skin and the bag. ?Leave the ice on for 20 minutes, 2 3 times a day. If directed, apply light compression to the injured area using an elastic bandage. Make sure the bandage is not wrapped too tightly. Remove and reapply the bandage as directed by your health care provider. Raise (elevate) the injured area above the level of your heart while you are sitting or lying down. If you have a sling or splint: Wear the sling or splint as told by your health care provider. Remove it only as told by your health care provider. Loosen the sling or splint if your fingers tingle, become numb, or turn cold and blue. Keep the sling or splint clean. If the sling or splint is not waterproof: ?Do not let it get wet. ?Cover it with a watertight covering when you take a bath or a shower. General instructions Take kfoh-edc-qfueyas and prescription medicines only as told by your health care provider. Return to your normal activities as told by your health care provider. Ask your health care provider what activities are safe for you. Do abelz-qq-pbdrpe exercises only as told by your health care provider. Ask your health care provider when it is safe to drive if you have a sling or splint on your arm. Wear elbow pads as told by your health care provider. Keep all follow-up visits as told by your health care provider. This is important. Contact a health care provider if: Your symptoms do not improve after several days of treatment. You have more redness, swelling, or pain in your elbow. You have difficulty moving the injured area. Your swelling or pain is not relieved with medicines. Get help right away if: Your skin over the contusion breaks and starts bleeding. You have severe pain. You have numbness in your hand or fingers. Your hand or fingers turn pale or cold. You have swelling of your hand and fingers. You cannot move your fingers or wrist. Summary An elbow contusion is a deep bruise of the elbow. Symptoms include pain, swelling, and discoloration of the elbow. Rest the injured area and apply ice to the area as told by your health care provider. If directed, apply light compression to the injured area using an elastic bandage. Raise (elevate) the injured area above the level of your heart while you are sitting or lying down. This information is not intended to replace advice given to you by your health care provider. Make sure you discuss any questions you have with your health care provider. Document Released: 02/23/2007 Document Revised: 09/17/2018 Document Reviewed: 09/17/2018 [employer] Patient Education 2019 [employer]. Follow Up Care 04/02/2022 09:43:43 With:Marcelo Link Address: [address], [address] [place] [address]- Business (1) When:Within 3 Day(s) [facility]12-14-2022 Hospital Discharge instructions Patient Education 03/13/2022 19:21:56 Pain Without a Known Cause Pain Without a Known Cause Pain can occur in any part of the body and can range from mild to severe. Sometimes no cause can befound for why you are having pain. Some types of pain that can occur without a known cause include: Headache. Back pain. Abdominal pain. Neck pain. Your health care provider will do tests to try to find the cause of your pain. If no cause is found, your health care provider may diagnose you with pain without a known cause. In some cases, your health care provider may repeat tests and look further for a possible cause. Follow these instructions at home: Managing pain, stiffness, and swelling Take godl-wki-vrwsevy and prescription medicines only as told by your health care provider. Do not drive or use heavy machinery while taking prescription pain medicine. Stop any activities that cause pain. Rest during periods of severe pain. If directed, put ice on the painful area: ?Put ice in a plastic bag. ?Place a towel between your skin and the bag. ? Leave the ice on for 20 minutes, 2 3 times a day. If directed, apply heat to the affected area. Use the heat source that your health care provider recommends, such as a moist heat pack or a heating pad. ?Place a towel between your skin and the heat source. ?Leave the heat on for 20 30 minutes. ?Remove the heat if your skin turns bright red. This is especially important if you are unable to feel pain, heat, or cold. You may have a greater risk of getting burned. General instructions Reduce your stress with activities such as yoga or meditation. Talk with your health care provider about other ways to reduce stress. Exercise regularly. Ask your health care provider what activities are safe for you. Eat a balanced diet that includes fruits and vegetables, whole grains, lean meat, and low-fat dairy. Talk with your health care provider if you have any questions about your diet. If you are taking prescription pain medicine, take actions to prevent or treat constipation. Your health care provider may recommend that you: ? Drink enough fluid to keep your urine pale yellow. ?Eat foods that are high in fiber, such as fresh fruits and vegetables, whole grains, and beans. ?Limit foods that are high in fat and processed sugars, such as fried and sweet foods. ?Take an sfpu-ppm-bdnkdse or prescription medicine for constipation. Contact a health care provider if you: Have pain, and no reason can be found for it. Do not get better, even after treatment. Get help right away if: Your pain is making you want to harm yourself. If you ever feel like you may hurt yourself or others, or have thoughts about taking your own life,get help right away. You can go to your nearest emergency department or call: Your local emergency services (911 in the [place] A suicide crisis helpline, such as the National Suicide Prevention Lifeline at . Thisis open 24 hours a day. Summary Pain can occur in any part of the body and can range from mild to severe. Your health care provider will do tests to try to find the cause of your pain. If no cause is found, your health care provider may diagnose you with pain without a known cause. To help your pain, take medicines as told by your health care provider, apply ice or heat, exercise, reduce stress, and eat a healthy diet. This information is not intended to replace advice given to you by your health care provider. Make sure you discuss any questions you have with your health care provider. Document Released: 12/10/2001 Document Revised: 05/13/2019 Document Reviewed: 04/06/2018 [employer] Patient Education 2020 [employer]. 03/13/2022 19:21:56 Abdominal Pain, Adult, Rnzf-bj-Qbzr Abdominal Pain, Adult Many things can cause belly (abdominal) pain. Most times, belly pain is not dangerous. Many cases of belly pain can be watched and treated at home. Sometimes, though, belly pain is serious. Your doctor will try to find the cause of your belly pain. Follow these instructions at home: Medicines Take uods-bad-cptdywu and prescription medicines only as told by your doctor. Do not take medicines that help you poop (laxatives) unless told by your doctor. General instructions Watch your belly pain for any changes. Drink enough fluid to keep your pee (urine) pale yellow. Keep all follow-up visits as told by your doctor. This is important. Contact a doctor if: Your belly pain changes or gets worse. You are not hungry, or you lose weight without trying. You are having trouble pooping (constipated) or have watery poop (diarrhea) for more than 2 3 days. You have pain when you pee or poop. Your belly pain wakes you up at night. Your pain gets worse with meals, after eating, or with certain foods. You are vomiting and cannot keep anything down. You have a fever. You have blood in your pee. Get help right away if: Your pain does not go away as soon as your doctor says it should. You cannot stop vomiting. Your pain is only in areas of your belly, such as the right side or the left lower part of the belly. You have bloody or black poop, or poop that looks like tar. You have very bad pain, cramping, or bloating in your belly. You have signs of not having enough fluid or water in your body (dehydration), such as: ?Dark pee, very little pee, or no pee. ?Cracked lips. ?Dry mouth. ?Sunken eyes. ?Sleepiness. ?Weakness. You have trouble breathing or chest pain. Summary Many cases of belly pain can be watched and treated at home. Watch your belly pain for any changes. Take qmnn-abg-mqwadiw and prescription medicines only as told by your doctor. Contact a doctor if your belly pain changes or gets worse. Get help right away if you have very bad pain, cramping, or bloating in your belly. This information is not intended to replace advice given to you by your health care provider. Make sure you discuss any questions you have with your health care provider. Document Released: 09/02/2008 Document Revised: 07/26/2019 Document Reviewed: 07/26/2019 [employer] Patient Education 2020 [employer]. Follow Up Care 03/13/2022 16:37:17 With:Marcelo Link Address: [address], [address] [place] [address]- Business (1) When:03/16/2022 19:05:35 Comments:Follow-up with your primary care provider in 3 to 5 days. If symptoms worsen, do not improve, or new symptoms arise please report back to emergency department for further evaluation. [facility]11-12-2022 Hospital Discharge instructions Patient Education 02/08/2022 22:13:00 Abdominal Pain, Adult Abdominal Pain, Adult Pain in the abdomen (abdominal pain) can be caused by many things. Often, abdominal pain is not serious and it gets better with no treatment or by being treated at home. However, sometimes abdominal pain is serious. Your health care provider will ask questions about your medical history and do a physical exam to try to determine the cause of your abdominal pain. Follow these instructions at home: Medicines Take nuza-elq-qbjxuzh and prescription medicines only as told by your health care provider. Do not take a laxative unless told by your health care provider. General instructions Watch your condition for any changes. Drink enough fluid to keep your urine pale yellow. Keep all follow-up visits as told by your health care provider. This is important. Contact a health care provider if: Your abdominal pain changes or gets worse. You are not hungry or you lose weight without trying. You are constipated or have diarrhea for more than 2 3 days. You have pain when you urinate or have a bowel movement. Your abdominal pain wakes you up at night. Your pain gets worse with meals, after eating, or with certain foods. You are vomiting and cannot keep anything down. You have a fever. You have blood in your urine. Get help right away if: Your pain does not go away as soon as your health care provider told you to expect. You cannot stop vomiting. Your pain is only in areas of the abdomen, such as the right side or the left lower portion of the abdomen. Pain on the right side could be caused by appendicitis. You have bloody or black stools, or stools that look like tar. You have severe pain, cramping, or bloating in your abdomen. You have signs of dehydration, such as: ?Dark urine, very little urine, or no urine. ?Cracked lips. ?Dry mouth. ?Sunken eyes. ?Sleepiness. ?Weakness. You have trouble breathing or chest pain. Summary Often, abdominal pain is not serious and it gets better with no treatment or by being treated at home. However, sometimes abdominal pain is serious. Watch your condition for any changes. Take zyuq-tbu-xpuztjy and prescription medicines only as told by your health care provider. Contact a health care provider if your abdominal pain changes or gets worse. Get help right away if you have severe pain, cramping, or bloating in your abdomen. This information is not intended to replace advice given to you by your health care provider. Make sure you discuss any questions you have with your health care provider. Document Released: 12/25/2005 Document Revised: 07/26/2019 Document Reviewed: 07/26/2019 [employer] Patient Education 2020 [employer]. Follow Up Care 02/08/2022 20:29:45 With:Marcelo Call Address: [address] [facility] [place] [address] Business (1) When:02/11/2022 Comments:Attend scheduled follow-up with Dr. Call next week to discuss management of ongoing chronic pain and other symptoms [facility]11-11-2022 Evaluation + Plan noteExtracted from: Title:ED Note Author:Delbert Estrada PA-C Micheal e:02/08/22 Abdominal pain (R10.9: Unspe cified abdominal pain) Nausea (R11.0: Nausea) Orders: Automated Diff Basic Metabolic Panel Beta-hydroxybutyrate CBC w/ Auto Diff eGFR Hepatic Function Panel UA With Cult Reflex XR Abdomen 1 View Future Appointments Appointment Date:04/10/2022 10:15:00 AM Scheduled Provider:London DIAZ MD Location:[facility] Appointment Type:[facility] Follow Up [facility]11-06-2022 Evaluation + Plan noteExtracted from: Title:ED Note Author:Vadim Gusman MD Date: 1. Medication side effect (T 88.7XXA: Unspecified adverse effect of drug or medicament, initial encounter) Orders: Automated Diff Basic Metabolic Panel CBC w/ Auto Diff eGFR Extra Blue Tube UA With Cult Reflex Future Appointments Appointment Date:04/10/2022 10:15:00 AM Scheduled Provider:London DIAZ MD Location:[facility] Appointment Type:[facility] Follow Up [facility]11-06-2022 Hospital Discharge instructions Patient Education 02/03/2022 05:00:01 Accidental Drug Poisoning, Adult Accidental Drug Poisoning, Adult Accidental drug poisoning happens when a person accidentally takes too much of a substance, such asa prescription medicine, an bulm-lhp-yhugvkb medicine, a vitamin, a supplement, or an illegal drug.The effects of drug poisoning can be mild, dangerous, or even deadly. What are the causes? This condition is caused by taking too much of a medicine, illegal drug, or other substance. It often results from: Lack of knowledge about a substance. Using more than one substance at the same time. An error made by the health care provider who prescribed the substance. An error made by the pharmacist who filled the prescription. A lapse in memory, such as forgetting that you have already taken a dose of the medicine. Suddenly using a substance after a long period of not using it. The following substances and medicines are more likely to cause an accidental drug poisoning: Medicines that treat mental problems (psychotropic medicines). Pain medicines. Cocaine. Heroin. Multivitamins that contain iron. Xmqo-lbm-ahrfczp cold and cough medicines. What increases the risk? This condition is more likely to occur in: Elderly adults. Elderly adults are at risk because they may: ?Be taking many different medicines. ?Have difficulty reading labels. ?Forget when they last took their medicine. People who use illegal drugs. People who drink alcohol while using illegal drugs or certain medicines. People with certain mental health conditions. What are the signs or symptoms? Symptoms of this condition depend on the substance and the amount that was taken. Common symptoms include: Behavior changes, such as confusion. Sleepiness. Weakness. Slowed breathing. Nausea and vomiting. Seizures. Very large or small eye pupil size. A drug poisoning can cause a very serious condition in which your blood pressure drops to a low level (shock). Symptoms of shock include: Cold and clammy skin. Pale skin. Blue lips. Very slow breathing. Extreme sleepiness. Severe confusion. Dizziness or fainting. How is this diagnosed? This condition is diagnosed based on: Your symptoms. You will be asked about the substances you took and when you took them. A physical exam. You may also have other tests, including: Urine tests. Blood tests. An electrocardiogram (ECG). How is this treated? This condition may need to be treated right away at the hospital. Treatment may involve: Getting fluids and electrolytes through an IV. Having a breathing tube inserted in your airway (endotracheal tube) to help you breathe. Taking medicines. These may include medicines that: ?Absorb any substance that is in your digestive system. ?Block or reverse the effect of the substance that caused the drug poisoning. Having your blood filtered through an artificial kidney machine (hemodialysis). Ongoing counseling and mental health support. This may be provided if you used an illegal drug. Follow these instructions at home: Medicines Take tfoy-xzc-knabluc and prescription medicines only as told by your health care provider. Before taking a new medicine, ask your health care provider whether the medicine: ?May cause side effects. ?Might react with other medicines. Keep a list of all the medicines that you take, including dzna-nfq-ezyhgbe medicines, vitamins, supplements, and herbs. Bring this list with you to all of your medical visits. General instructions Drink enough fluid to keep your urine pale yellow. If you are working with a counselor or mental health professional, make sure to follow his or her instructions. Do not drink alcohol if: ?Your health care provider tells you not to drink. ?You are , may be , or are planning to become . If you drink alcohol, limit how much you have: ?0 1 drink a day for women. ?0 2 drinks a day for men. Be aware of how much alcohol is in your drink. In the [place] one drink equals one typical bottle of beer (12 oz), one-half glass of wine (5 oz), or one shot of hard liquor (1 oz). Keep all follow-up visits as told by your health care provider. This is important. How is this prevented? Get help if you are struggling with: ?Alcohol or drug use. ?Depression or another mental health problem. Keep the phone number of your local poison control center near your phone or on your cell phone. The hotline of the [place] [employer] Po[employer] Control Centers is . Store all medicines in safety containers that are out of the reach of children. Read the drug inserts that come with your medicines. Create a system for taking your medicine, such as a pillbox, that will help you avoid taking too much of the medicine. Do not drink alcohol while taking medicines unless your health care provider approves. Do not use illegal drugs. Do not take medicines that are not prescribed for you. Contact a health care provider if: Your symptoms return. You develop new symptoms or side effects after taking a medicine. You have questions about possible drug poisoning. Call your local poison control center at . Get help right away if: You think that you or someone else may have taken too much of a substance. You or someone else is having symptoms of drug poisoning. Summary Accidental drug poisoning happens when a person accidentally takes too much of a substance, such asa prescription medicine, an wipn-wqb-ipxjpdn medicine, a vitamin, a supplement, or an illegal drug. The effects of drug poisoning can be mild, dangerous, or even deadly. This condition is diagnosed based on your symptoms and a physical exam. You will be asked to tell your health care provider which substances you took and when you took them. This condition may need to be treated right away at the hospital. This information is not intended to replace advice given to you by your health care provider. Make sure you discuss any questions you have with your health care provider. 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 Home Discharge Diet(s): Calorie Controlled- 1800 Calorie Diet (02/02/22 11:04:00) Prescriptions lisinopril 20 mg Tab, 20 mg= 1 tab(s), Oral, Daily Home buPROPion 150 mg ER Tab, 300 mg= 2 tab(s), Oral, Daily carvedilol 12.5 mg Tab, 12.5 mg= 1 tab(s), Oral, BID esomeprazole 20 mg Cap-DR, 20 mg= 1 cap(s), Oral, Daily gabapentin, 800 mg, Oral, TID hydrOXYzine hydrochloride 25 mg Tab, 25 mg= 1 tab(s), Oral, TID, PRN Lantus 100 units/mL Injection-Insulin, 20 unit(s), SubCutaneous, Daily levothyroxine 112 mcg (0.112 mg) Tab, 112 mcg= 1 tab(s), Oral, Daily [place] 325 mg-5 mg oral tablet, 1 tab(s), Oral, BID, PRN Paxil 10 mg Tab, 10 mg= 1 tab(s), Oral, As Directed rosuvastatin 20 mg Tab, 20 mg= 1 tab(s), Oral, Daily traZODONE 100 mg Tab, 200 mg= 2 tab(s), Oral, Once a day (at bedtime) Trulicity Pen 4.5 mg/0.5 mL subcutaneous solution, 4.5 mg, SubCutaneous, qWeek With When Contact Information Marcelo Link 02/08/2022 10:15 AM EST [address], [address] [place] [address]- Business (1) Additional Instructions: Acute Kidney Injury, Adult Acute Kidney Injury, Adult Discharge time >30 min Extracted from: Title:Admission H & P Author:Kilo HARRIS MD ate:01/31/22 66-year-old female with past medical history of diabetes, hypertension, GERD, nicotine dependence, depression, anxiety, medication noncompliance, diabetic gastroparesis presents to emergency department due to nausea vomiting and diarrhea. 1. PAVITHRA (acute kidney injury) (N17.9: Acute kidney failure, unspecified) PAVITHRA with hypotension likely due to ATN Admit under observation care as I do not anticipate that patient will require greater than 2 midnight stay Blood pressure is already improved Avoid antihypertensive medication IV fluids Repeat labs in the morning 2. Hypotension (I95.9: Hypotension, unspecified) Hold Coreg and lisinopril Blood pressure is improved IV fluids 3. N&V (nausea and vomiting) (R11.2: Nausea with vomiting, unspecified) Secondary to noncompliance with underlying gastroparesis Diabetic diet with small frequent meals Educated patient on better blood sugar control And small frequent meals. Hemoglobin A1c on previous admission was 8.7 in January 2021 4. Diabetes mellitus, type 2 (E11.9: Type 2 diabetes mellitus without complications) Accu-Chek with sliding scale insulin We will hold off on long-acting insulin due to acute kidney injury and monitoring blood sugar and order insulin as needed 5. Chronic GERD (K21.9: Gastro-esophageal reflux disease without esophagitis) PPI 6. HTN (hypertension) (I10: Essential (primary) hypertension) Hypotensive on admission Hold off on blood pressure medication 7. Smoker (F17.200: Nicotine dependence, unspecified, uncomplicated) Recommended abstinence 8. Depression with anxiety (F41.8: Other specified anxiety disorders) Once home med rec is confirmed we will continue with chronic medication Patient has drug-seeking behavior and educated on polypharmacy 9. No contraindication to deep vein thrombosis (DVT) prophylaxis (Z78.9: Other specified health status) Heparin twice a day Orders: acetaminophen, 650 mg = 2 tab(s), Tab, Oral, q6hr PRN Pain, Routine, Start date 01/31/22 23:30:00 EDT, 01/31/22 23:30:00 EDT Al hydroxide/Mg hydroxide/simethicone, 30 mL, Susp-Oral, Oral, q6hr PRN Indigestion, STAT, Start date 01/31/22 23:30:00 EDT atorvastatin, 80 mg = 2 tab(s), Tab, Oral, Daily, Routine, Start date 02/01/22 9:00:00 EDT, 01/31/22 23:33:00 EDT buPROPion, 300 mg = 2 tab(s), Tab-ER, Oral, Daily, Routine, Start date 02/01/22 9:00:00 EDT, 01/31/22 23:32:00 EDT heparin, 5,000 unit(s) = 1 mL, Injection, SubCutaneous, BID for 30 day(s), Stop date 03/03/22 8:59:00 EST, Routine, Start date 02/01/22 9:00:00 EDT, 01/31/22 23:30:00 EDT hydrALAZINE, 10 mg = 0.5 mL, Injection, IV Push, q6hr PRN Other (see comment), Routine, Start date 01/31/22 23:30:00 EDT, 01/31/22 23:30:00 EDT hydrOXYzine, 25 mg = 1 tab(s), Tab, Oral, TID PRN Anxiety, Routine, Start date 01/31/22 23:32:00 EDT, 01/31/22 23:32:00 EDT insulin lispro, 0-10 Units, Injection-Insulin, SubCutaneous, QIDACHS, Routine, Start date 02/01/22 7:30:00 EDT levothyroxine, 112 mcg = 1 tab(s), Tab, Oral, Daily, Routine, Start date 02/01/22 6:30:00 EDT, 01/31/22 23:32:00 EDT ondansetron, 4 mg = 2 mL, Injection, IV Push, q6hr PRN Nausea, Routine, Start date 01/31/22 23:30:00 EDT, 01/31/22 23:30:00 EDT pantoprazole, 40 mg = 1 tab(s), Tab-DR, Oral, Daily, Routine, Start date 02/01/22 9:00:00 EDT, 01/31/22 23:32:00 EDT Sodium Chloride 0.9% intravenous solution 1,000 mL, 1,000 mL, IV, 75 mL/hr, Routine, Start date 01/31/22 23:30:00 EDT, 13.3 hour(s), Total volume (mL): 1,000, 70.4 kg, 1.78, m2 Add on Test Ambulate with Assistance Basic Metabolic Panel Below the Knee Intermittent Pneumatic Compression Device Cardiac Monitoring CBC w/ Auto Diff Diabetic/Calorie Control Diet Evaluate Need For Continued Telemetry Incentive Spirometry Intake and Output Magnesium Level Notify Provider Vital Signs Notify Provider Vital Signs Occupational Therapy Evaluate Patient, Develop a Plan of Care and Implement Plan Oxygen Protocol Physical Therapy Evaluate Patient, Develop a Plan of Care and Implement Plan Place in Status Precautions Pulse Oximetry Routine Capillary Glucose POC Vital Signs Weight Plan discussed with patient at bedside in ER bed 1 Full code as per patient This report was transcribed using voice recognition software. Every effort was made to ensure accuracy, however, inadvertently computerized route sales delivery drivers supervisor mistakes may be present. Dr. Kilo Harris Hospitalist at [facility] Extracted from: Title:ED Note Author:Ty Manrique DO Date :01/31/22 PAVITHRA (acute kidney injury) (N 17.9: Acute kidney failure, unspecified) N&V (nausea and vomiting) (R11.2: Nausea with vomiting, unspecified) Orders: hydrOXYzine, 25 mg = 1 tab(s), Tab, Oral, Once, Stop date 01/31/22 23:10:00 EDT, STAT, Start date 01/31/22 23:10:00 EDT, 01/31/22 23:10:00 EDT metoclopramide, 10 mg = 2 mL, Injection, IV Push, Once, Stop date 01/31/22 21:25:00 EDT, STAT, Start date 01/31/22 21:25:00 EDT, 01/31/22 21:25:00 EDT morphine, 2 mg = 1 mL, Injection, IV Push, Once, Stop date 01/31/22 21:25:00 EDT, STAT, Start date 01/31/22 21:25:00 EDT, 01/31/22 21:25:00 EDT Sodium Chloride 0.9% intravenous solution, 1,000 mL, Soln-IV, IV, Once, Stop date 01/31/22 21:25:00 EDT, STAT, Start date 01/31/22 21:25:00 EDT, mL/hr, Infuse over 61, minute(s) Automated Diff Basic Metabolic Panel Blood Gas Randall Capillary Glucose POC CBC w/ Auto Diff CT Abdomen/Pelvis w/o Contrast ECG 12 Lead Adult ED Physician consult Hospitalist for continued care eGFR Hepatic Function Panel Lactic Acid Lipase Level Troponin 0 Hr. UA With Cult Reflex Future Appointments Appointment Date:04/10/2022 10:15:00 AM Scheduled Provider:London DIAZ MD Location:[facility] [place] [facility] Appointment Type:[facility] Follow Up Diagnostic Tests Pending * Blood Gas Randall 01/31/22 [facility]11-05-2022 Hospital Discharge instructions Patient Education 02/02/2022 11:03:37 Acute Kidney Injury, Adult Acute Kidney Injury, Adult Acute kidney injury is a sudden worsening of kidney function. The kidneys are organs that have several jobs. They filter the blood to remove waste products and extra fluid. They also maintain a healthy balance of minerals and hormones in the body, which helps control blood pressure and keep bones strong. With this condition, your kidneys do not do their jobs as well as they should. This condition ranges from mild to severe. Over time it may develop into long- lasting (chronic) kidney disease. Early detection and treatment may prevent acute kidney injury from developing into a chronic condition. What are the causes? Common causes of this condition include: A problem with blood flow to the kidneys. This may be caused by: ?Low blood pressure (hypotension) or shock. ?Blood loss. ?Heart and blood vessel (cardiovascular) disease. ?Severe gutierrez. ?Liver disease. Direct damage to the kidneys. This may be caused by: ?Certain medicines. ?A kidney infection. ?Poisoning. ?Being around or in contact with toxic substances. ?A surgical wound. ?A hard, direct hit to the kidney area. A sudden blockage of urine flow. This may be caused by: ?Cancer. ?Kidney stones. ?An enlarged prostate in males. What are the signs or symptoms? Symptoms of this condition may not be obvious until the condition becomes severe. Symptoms of this condition can include: Tiredness (lethargy), or difficulty staying awake. Nausea or vomiting. Swelling (edema) of the face, legs, ankles, or feet. Problems with urination, such as: ?Abdominal pain, or pain along the side of your stomach (flank). ?Decreased urine production. ?Decrease in the force of urine flow. Muscle twitches and cramps, especially in the legs. Confusion or trouble concentrating. Loss of appetite. Fever. How is this diagnosed? This condition may be diagnosed with tests, including: Blood tests. Urine tests. Imaging tests. A test in which a sample of tissue is removed from the kidneys to be examined under a microscope (kidney biopsy). How is this treated? Treatment for this condition depends on the cause and how severe the condition is. In mild cases, treatment may not be needed. The kidneys may heal on their own. In more severe cases, treatment will involve: Treating the cause of the kidney injury. This may involve changing any medicines you are taking or adjusting your dosage. Fluids. You may need specialized IV fluids to balance your body's needs. Having a catheter placed to drain urine and prevent blockages. Preventing problems from occurring. This may mean avoiding certain medicines or procedures that cancause further injury to the kidneys. In some cases treatment may also require: A procedure to remove toxic wastes from the body (dialysis or continuous renal replacement therapy - CRRT). Surgery. This may be done to repair a torn kidney, or to remove the blockage from the urinary system. Follow these instructions at home: Medicines Take zwlv-tak-gotlydl and prescription medicines only as told by your health care provider. Do not take any new medicines without your health care provider's approval. Many medicines can worsen your kidney damage. Do not take any vitamin and mineral supplements without your health care provider's approval. Many nutritional supplements can worsen your kidney damage. Lifestyle If your health care provider prescribed changes to your diet, follow them. You may need to decreasethe amount of protein you eat. Achieve and maintain a healthy weight. If you need help with this, ask your health care provider. Start or continue an exercise plan. Try to exercise at least 30 minutes a day, 5 days a week. Do not use any tobacco products, such as cigarettes, chewing tobacco, and e- cigarettes. If you needhelp quitting, ask your health care provider. General instructions Keep track of your blood pressure. Report changes in your blood pressure as told by your health care provider. Stay up to date with immunizations. Ask your health care provider which immunizations you need. Keep all follow-up visits as told by your health care provider. This is important. Where to find more information [place] [employer] Patients: www.aakp.org National Kidney Foundation: www.kidney.org [employer]: www.akfinc.org Life Options Rehabilitation Program: ?www.lifeoptions.org ?www.kidneyschool.org Contact a health care provider if: Your symptoms get worse. You develop new symptoms. Get help right away if: You develop symptoms of worsening kidney disease, which include: ?Headaches. ?Abnormally dark or light skin. ?Easy bruising. ?Frequent hiccups. ?Chest pain. ?Shortness of breath. ?End of menstruation in women. ?Seizures. ?Confusion or altered mental status. ?Abdominal or back pain. ?Itchiness. You have a fever. Your body is producing less urine. You have pain or bleeding when you urinate. Summary Acute kidney injury is a sudden worsening of kidney function. Acute kidney injury can be caused by problems with blood flow to the kidneys, direct damage to the kidneys, and sudden blockage of urine flow. Symptoms of this condition may not be obvious until it becomes severe. Symptoms may include edema, lethargy, confusion, nausea or vomiting, and problems passing urine. This condition can usually be diagnosed with blood tests, urine tests, and imaging tests. Sometimesa kidney biopsy is done to diagnose this condition. Treatment for this condition often involves treating the underlying cause. It is treated with fluids, medicines, dialysis, diet changes, or surgery. This information is not intended to replace advice given to you by your health care provider. Make sure you discuss any questions you have with your health care provider. Document Released: 09/30/2011 Document Revised: 02/27/2018 Document Reviewed: 03/07/2017 [employer] Patient Education 2020 [employer]. 02/02/2022 11:03:37 Acute Kidney Injury, Adult Acute Kidney Injury, Adult Acute kidney injury is a sudden worsening of kidney function. The kidneys are organs that have several jobs. They filter the blood to remove waste products and extra fluid. They also maintain a healthy balance of minerals and hormones in the body, which helps control blood pressure and keep bones strong. With this condition, your kidneys do not do their jobs as well as they should. This condition ranges from mild to severe. Over time it may develop into long- lasting (chronic) kidney disease. Early detection and treatment may prevent acute kidney injury from developing into a chronic condition. What are the causes? Common causes of this condition include: A problem with blood flow to the kidneys. This may be caused by: ?Low blood pressure (hypotension) or shock. ?Blood loss. ?Heart and blood vessel (cardiovascular) disease. ?Severe gutierrez. ?Liver disease. Direct damage to the kidneys. This may be caused by: ?Certain medicines. ?A kidney infection. ?Poisoning. ?Being around or in contact with toxic substances. ?A surgical wound. ?A hard, direct hit to the kidney area. A sudden blockage of urine flow. This may be caused by: ?Cancer. ?Kidney stones. ?An enlarged prostate in males. What are the signs or symptoms? Symptoms of this condition may not be obvious until the condition becomes severe. Symptoms of this condition can include: Tiredness (lethargy), or difficulty staying awake. Nausea or vomiting. Swelling (edema) of the face, legs, ankles, or feet. Problems with urination, such as: ?Abdominal pain, or pain along the side of your stomach (flank). ?Decreased urine production. ?Decrease in the force of urine flow. Muscle twitches and cramps, especially in the legs. Confusion or trouble concentrating. Loss of appetite. Fever. How is this diagnosed? This condition may be diagnosed with tests, including: Blood tests. Urine tests. Imaging tests. A test in which a sample of tissue is removed from the kidneys to be examined under a microscope (kidney biopsy). How is this treated? Treatment for this condition depends on the cause and how severe the condition is. In mild cases, treatment may not be needed. The kidneys may heal on their own. In more severe cases, treatment will involve: Treating the cause of the kidney injury. This may involve changing any medicines you are taking or adjusting your dosage. Fluids. You may need specialized IV fluids to balance your body's needs. Having a catheter placed to drain urine and prevent blockages. Preventing problems from occurring. This may mean avoiding certain medicines or procedures that cancause further injury to the kidneys. In some cases treatment may also require: A procedure to remove toxic wastes from the body (dialysis or continuous renal replacement therapy - CRRT). Surgery. This may be done to repair a torn kidney, or to remove the blockage from the urinary system. Follow these instructions at home: Medicines Take xhwm-bll-vwqcwse and prescription medicines only as told by your health care provider. Do not take any new medicines without your health care provider's approval. Many medicines can worsen your kidney damage. Do not take any vitamin and mineral supplements without your health care provider's approval. Many nutritional supplements can worsen your kidney damage. Lifestyle If your health care provider prescribed changes to your diet, follow them. You may need to decreasethe amount of protein you eat. Achieve and maintain a healthy weight. If you need help with this, ask your health care provider. Start or continue an exercise plan. Try to exercise at least 30 minutes a day, 5 days a week. Do not use any tobacco products, such as cigarettes, chewing tobacco, and e- cigarettes. If you needhelp quitting, ask your health care provider. General instructions Keep track of your blood pressure. Report changes in your blood pressure as told by your health care provider. Stay up to date with immunizations. Ask your health care provider which immunizations you need. Keep all follow-up visits as told by your health care provider. This is important. Where to find more information [place] [employer] Patients: www.aakp.org National Kidney Foundation: www.kidney.org [employer]: www.akfinc.org Life Options Rehabilitation Program: ?www.lifeoptions.org ?www.kidneyschool.org Contact a health care provider if: Your symptoms get worse. You develop new symptoms. Get help right away if: You develop symptoms of worsening kidney disease, which include: ?Headaches. ?Abnormally dark or light skin. ?Easy bruising. ?Frequent hiccups. ?Chest pain. ?Shortness of breath. ?End of menstruation in women. ?Seizures. ?Confusion or altered mental status. ?Abdominal or back pain. ?Itchiness. You have a fever. Your body is producing less urine. You have pain or bleeding when you urinate. Summary Acute kidney injury is a sudden worsening of kidney function. Acute kidney injury can be caused by problems with blood flow to the kidneys, direct damage to the kidneys, and sudden blockage of urine flow. Symptoms of this condition may not be obvious until it becomes severe. Symptoms may include edema, lethargy, confusion, nausea or vomiting, and problems passing urine. This condition can usually be diagnosed with blood tests, urine tests, and imaging tests. Sometimesa kidney biopsy is done to diagnose this condition. Treatment for this condition often involves treating the underlying cause. It is treated with fluids, medicines, dialysis, diet changes, or surgery. This information is not intended to replace advice given to you by your health care provider. Make sure you discuss any questions you have with your health care provider. Document Released: 09/30/2011 Document Revised: 02/27/2018 Document Reviewed: 03/07/2017 [employer] Patient Education [employer]. Follow Up Care 01/31/2022 21:09:18 With:Marcelo Link Address: [address], [address] [place] [address] Business (1) When:02/08/2022 10:15:00 [facility]11-02-2022 Evaluation + Plan noteExtracted from: Title:Discharge Note Author:DERREK BANKS, Denzel Burton e:01/30/22 good Discharge To, Anticipated II - Home with home health Discharged to - Home independently Home Discharge Diet(s): Calorie Controlled- 1800 Calorie Diet (01/30/22 09:29:00) Prescriptions No active prescription medications Home buPROPion 150 mg ER Tab, 300 mg= 2 tab(s), Oral, Daily busPIRone 10 mg Tab, 10 mg= 1 tab(s), Oral, TID carvedilol 12.5 mg Tab, 12.5 mg= 1 tab(s), Oral, BID esomeprazole 20 mg Cap-DR, 20 mg= 1 cap(s), Oral, Daily gabapentin, 800 mg, Oral, TID hydrOXYzine hydrochloride 25 mg Tab, 25 mg= 1 tab(s), Oral, TID, PRN ibuprofen, 800 mg, Oral, q6hr, PRN Lantus 100 units/mL Injection-Insulin, 20 unit(s), SubCutaneous, Daily levothyroxine 112 mcg (0.112 mg) Tab, 112 mcg= 1 tab(s), Oral, Daily lisinopril 40 mg Tab, 40 mg= 1 tab(s), Oral, Daily [place] 325 mg-5 mg oral tablet, 1 tab(s), Oral, BID, PRN Paxil 10 mg Tab, 10 mg= 1 tab(s), Oral, As Directed rosuvastatin 20 mg Tab, 20 mg= 1 tab(s), Oral, Daily traZODONE 100 mg Tab, 200 mg= 2 tab(s), Oral, Once a day (at bedtime) Trulicity Pen 4.5 mg/0.5 mL subcutaneous solution, 4.5 mg, SubCutaneous, qWeek With When Contact Information NOMI WETZEL [address] [place] [address]- Business (1) Additional Instructions: Marcelo Link In 0 days [address] [place] [address]- Business (1) Additional Instructions: Form - Daily Diabetes Record Diabetic Ketoacidosis Diabetes Mellitus and Sick Day Management Diabetes Mellitus and Nutrition, Adult Diabetes Mellitus and Foot Care Diabetes Mellitus and Exercise discharge time > 30 min Extracted from: Title:Progress Note * Author:Chuck Vernon MD Date:01/29/22 Impression and Plan 1 symptoms of dyspnea prior to admission of unknown significance with normal ejection fraction and no diastolic dysfunction. The patient did have an ECG, troponin or BNP during the admission. Given her history of diabetes it may be worthwhile as an outpatient for the sake of completion to do a Lexiscan perfusion study. Presently there is no target to treat 2 diabetic ketoacidosis improved on medical therapy. 3 hypertension medical therapy under control 4 hyperlipidemia on statin managed by PCP 5 stage IIIa chronic kidney disease Extracted from: Title:Admission H & P Author:Denzel ANGLIN MD te:01/28/22 1. DKA (diabetic ketoacidosi s) (E11.10: Type 2 diabetes mellitus with ketoacidosis without coma) Inpatient admission Patient will require more than 2 nights in the hospital Strict input output DKA order sets was initiated Accu-Chek every 1 hour BMP every 4 hours She already got 2 L normal saline in the emergency room Continue with normal saline at 150 cc/h Switch to D5 half-normal 1 blood sugar less than 250 Insulin infusion per protocol Zofran IV as needed Morphine 2 mg every as needed 2. Dehydration (E86.0: Dehydration) Strict input output Daily weight Normal saline 150 cc/h 3. Acute renal failure (N17.9: Acute kidney failure, unspecified) Strict input output Normal saline 150 cc/h BMP in the morning 4. Hyponatremia (E87.1: Hypo-osmolality and hyponatremia) Secondary to hyperglycemia BMP every 4 hours 5. Benign essential HTN, (I10: Essential (primary) hypertension)Hypertension Resume lisinopril and Coreg 6. Depression with anxiety (F41.8: Other specified anxiety disorders) Resume Paxil and bupropion 7. Chronic GERD (K21.9: Gastro-esophageal reflux disease without esophagitis) PPI Protonix IV 40 mg daily 9. Obesity (E66.9: Obesity, unspecified) Lifestyle modification 10. Chronic pain (G89.29: Other chronic pain) Morphine IV every 4 hours as needed 11. DVT prophylaxis (Z29.9: Encounter for prophylactic measures, unspecified) Lovenox daily [facility]11-02-2022 Hospital Discharge instructions Patient Education 01/30/2022 09:29:25 Form - Daily Diabetes Record Daily Diabetes Record Check your blood glucose (BG) as directed by your health care provider. Use this form to record your BG results as well as any diabetes medicines that you take, including insulin. Bringing a record of your BG results and a list of your current medicines to your health care provider is very helpful in managing your diabetes. These numbers help your health care provider to know whether your diabetes management plan needs to be changed. Patient name: Week of Daily BG results and diabetes medicines Date: Breakfast BG / Medicines: / Lunch BG / Medicines: / Dinner BG / Medicines: / Bedtime BG / Medicines: / Date: Breakfast BG / Medicines: / Lunch BG / Medicines: / Dinner BG / Medicines: / Bedtime BG / Medicines: / Date: Breakfast BG / Medicines: / Lunch BG / Medicines: / Dinner BG / Medicines: / Bedtime BG / Medicines: / Date: Breakfast BG / Medicines: / Lunch BG / Medicines: / Dinner BG / Medicines: / Bedtime BG / Medicines: / Date: Breakfast BG / Medicines: / Lunch BG / Medicines: / Dinner BG / Medicines: / Bedtime BG / Medicines: / Date: Breakfast BG / Medicines: / Lunch BG / Medicines: / Dinner BG / Medicines: / Bedtime BG / Medicines: / Date: Breakfast BG / Medicines: / Lunch BG / Medicines: / Dinner BG / Medicines: / Bedtime BG / Medicines: / Notes: This information is not intended to replace advice given to you by your health care provider. Make sure you discuss any questions you have with your health care provider. Document Released: 02/18/2005 Document Revised: 12/29/2018 Document Reviewed: 12/13/2016 [employer] Patient Education 2020 [employer]. 01/30/2022 09:29:23 Diabetic Ketoacidosis Diabetic Ketoacidosis Diabetic ketoacidosis is a serious complication of diabetes. This condition develops when there is not enough insulin in the body. Insulin is an hormone that regulates blood sugar levels in the body.Normally, insulin allows glucose to enter the cells in the body. The cells break down glucose for energy. Without enough insulin, the body cannot break down glucose, so it breaks down fats instead. This leads to high blood glucose levels in the body and the production of acids that are called ketones. Ketones are poisonous at high levels. If diabetic ketoacidosis is not treated, it can cause severe dehydration and can lead to a coma or . What are the causes? This condition develops when a lack of insulin causes the body to break down fats instead of glucose. This may be triggered by: Stress on the body. This stress is brought on by an illness. Infection. Medicines that raise blood glucose levels. Not taking diabetes medicine. New onset of type 1 diabetes mellitus. What are the signs or symptoms? Symptoms of this condition include: Fatigue. Weight loss. Excessive thirst. Light-headedness. Fruity or sweet-smelling breath. Excessive urination. Vision changes. Confusion or irritability. Nausea. Vomiting. Rapid breathing. Abdominal pain. Feeling flushed. How is this diagnosed? This condition is diagnosed based on your medical history, a physical exam, and blood tests. You may also have a urine test to check for ketones. How is this treated? This condition may be treated with: Fluid replacement. This may be done to correct dehydration. Insulin injections. These may be given through the skin or through an IV tube. Electrolyte replacement. Electrolytes are minerals in your blood. Electrolytes such as potassium and sodium may be given in pill form or through an IV tube. Antibiotic medicines. These may be prescribed if your condition was caused by an infection. Diabetic ketoacidosis is a serious medical condition. You may need emergency treatment in the hospital to monitor your condition. Follow these instructions at home: Eating and drinking Drink enough fluids to keep your urine clear or pale yellow. If you are not able to eat, drink clear fluids in small amounts as you are able. Clear fluids include water, ice chips, fruit juice with water added (diluted), and low-calorie sports drinks. You may also have sugar-free jello or popsicles. If you are able to eat, follow your usual diet and drink sugar-free liquids, such as water. Medicines Take smgr-hxh-oijrhus and prescription medicines only as told by your health care provider. Continue to take insulin and other diabetes medicines as told by your health care provider. If you were prescribed an antibiotic, take it as told by your health care provider. Do not stop taking the antibiotic even if you start to feel better. General instructions Check your urine for ketones when you are ill and as told by your health care provider. ?If your blood glucose is 240 mg/dL (13.3 mmol/L) or higher, check your urine ketones every 4 6 hours. Check your blood glucose every day, as often as told by your health care provider. ?If your blood glucose is high, drink plenty of fluids. This helps to flush out ketones. ?If your blood glucose is above your target for 2 tests in a row, contact your health care provider. Carry a medical alert card or wear medical alert jewelry that says that you have diabetes. Rest and exercise only as told by your health care provider. Do not exercise when your blood glucose is high and you have ketones in your urine. If you get sick, call your health care provider and begin treatment quickly. Your body often needs extra insulin to fight an illness. Check your blood glucose every 4 6 hours when you are sick. Keep all follow-up visits as told by your health care provider. This is important. Contact a health care provider if: Your blood glucose level is higher than 240 mg/dL (13.3 mmol/L) for 2 days in a row. You have moderate or large ketones in your urine. You have a fever. You cannot eat or drink without vomiting. You have been vomiting for more than 2 hours. You continue to have symptoms of diabetic ketoacidosis. You develop new symptoms. Get help right away if: Your blood glucose monitor reads high even when you are taking insulin. You faint. You have chest pain. You have trouble breathing. You have sudden trouble speaking or swallowing. You have vomiting or diarrhea that gets worse after 3 hours. You are unable to stay awake. You have trouble thinking. You are severely dehydrated. Symptoms of severe dehydration include: ?Extreme thirst. ?Dry mouth. ?Rapid breathing. These symptoms may represent a serious problem that is an emergency. Do not wait to see if the symptoms will go away. Get medical help right away. Call your local emergency services (911 in the [place] Do not drive yourself to the hospital. Summary Diabetic ketoacidosis is a serious complication of diabetes. This condition develops when there is not enough insulin in the body. This condition is diagnosed based on your medical history, a physical exam, and blood tests. You may also have a urine test to check for ketones. Diabetic ketoacidosis is a serious medical condition. You may need emergency treatment in the hospital to monitor your condition. Contact your health care provider if your blood glucose is higher than 240 mg/dl for 2 days in a row or if you have moderate or large ketones in your urine. This information is not intended to replace advice given to you by your health care provider. Make sure you discuss any questions you have with your health care provider. Document Released: 03/14/2001 Document Revised: 05/02/2017 Document Reviewed: 04/21/2017 [employer] Patient Education 2020 [employer]. 01/30/2022 09:29:22 Diabetes Mellitus and Sick Day Management Diabetes Mellitus and Sick Day Management Blood sugar (glucose) can be difficult to control when you are sick. Common illnesses that can cause problems for people with diabetes (diabetes mellitus) include colds, fever, flu (influenza), nausea, vomiting, and diarrhea. These illnesses can cause stress and loss of body fluids (dehydration), and those issues can cause blood glucose levels to increase. Because of this, it is very important totake your insulin and diabetes medicines and eat some form of carbohydrate when you are sick. You should make a plan for days when you are sick (sick day plan) as part of your diabetes management plan. You and your health care provider should make this plan in advance. The following guidelines are intended to help you manage an illness that lasts for about 24 hours or less. Your health careprovider may also give you more specific instructions. What do I need to do to manage my blood glucose? Check your blood glucose every 2 4 hours, or as often as told by your health care provider. Know your sick day treatment goals. Your target blood glucose levels may be different when you are sick. If you use insulin, take your usual dose. ?If your blood glucose continues to be too high, you may need to take an additional insulin dose astold by your health care provider. If you use oral diabetes medicine, you may need to stop taking it if you are not able to eat or drink normally. Ask your health care provider about whether you need to stop taking these medicines while you are sick. If you use injectable hormone medicines other than insulin to control your diabetes, ask your health care provider about whether you need to stop taking these medicines while you are sick. What else can I do to manage my diabetes when I am sick? Check your ketones If you have type 1 diabetes, check your urine ketones every 4 hours. If you have type 2 diabetes, check your urine ketones as often as told by your health care provider. Drink fluids Drink enough fluid to keep your urine clear or pale yellow. This is especially important if you have a fever, vomiting, or diarrhea. Those symptoms can lead to dehydration. Follow any instructions from your health care provider about beverages to avoid. ?Do not drink alcohol, caffeine, or drinks that contain a lot of sugar. Take medicines as directed Cnam-hyov-ayc-counter and prescription medicines only as told by your health care provider. Check medicine labels for added sugars. Some medicines may contain sugar or types of sugars that can raise your blood glucose level. What foods can I eat when I am sick? You need to eat some form of carbohydrates when you are sick. You should eat 45 50 grams (45 50 g) of carbohydrates every 3 4 hours until you feel better. All of the food choices below contain about 15 g of carbohydrates. Plan ahead and keep some of these foods around so you have them if you get sick. 4 6 oz (120 177 mL) carbonated beverage that contains sugar, such as regular (not diet) soda. You may be able to drink carbonated beverages more easily if you open the beverage and let it sit at roomtemperature for a few minutes before drinking. of a twin frozen ice pop. 4 oz (120 g) regular gelatin. 4 oz (120 mL) fruit juice. 4 oz (120 g) ice cream or frozen yogurt. 2 oz (60 g) sherbet. 8 oz (240 mL) clear broth or soup. 4 oz (120 g) regular custard. 4 oz (120 g) regular pudding. 8 oz (240 g) plain yogurt. 1 slice bread or toast. 6 saltine crackers. 5 vanilla wafers. Questions to ask your health care provider Consider asking the following questions so you know what to do on days when you are sick: Should I adjust my diabetes medicines? How often do I need to check my blood glucose? What supplies do I need to manage my diabetes at home when I am sick? What number can I call if I have questions? What foods and drinks should I avoid? Contact a health care provider if: You develop symptoms of diabetic ketoacidosis, such as: ?Fatigue. ?Weight loss. ?Excessive thirst. ?Light-headedness. ?Fruity or sweet-smelling breath. ?Excessive urination. ?Vision changes. ?Confusion or irritability. ?Nausea. ?Vomiting. ?Rapid breathing. ?Pain in the abdomen. ?Feeling flushed. You are unable to drink fluids without vomiting. You have any of the following for more than 6 hours: ?Nausea. ?Vomiting. ?Diarrhea. Your blood glucose is at or above 240 mg/dL (13.3 mmol/L), even after you take an additional insulin dose. You have a change in how you think, feel, or act (mental status). You develop another serious illness. You have been sick or have had a fever for 2 days or longer and you are not getting better. Get help right away if: Your blood glucose is lower than 54 mg/dL (3.0 mmol/L). You have difficulty breathing. You have moderate or high ketone levels in your urine. You used emergency glucagon to treat low blood glucose. Summary Blood sugar (glucose) can be difficult to control when you are sick. Common illnesses that can cause problems for people with diabetes (diabetes mellitus) include colds, fever, flu (influenza), nausea, vomiting, and diarrhea. Illnesses can cause stress and loss of body fluids (dehydration), and those issues can cause blood glucose levels to increase. Make a plan for days when you are sick (sick day plan) as part of your diabetes management plan. You and your health care provider should make this plan in advance. It is very important to take your insulin and diabetes medicines and to eat some form of carbohydrate when you are sick. Contact your health care provider if have problems managing your blood glucose levels when you are sick, or if you have been sick or had a fever for 2 days or longer and are not getting better. This information is not intended to replace advice given to you by your health care provider. Make sure you discuss any questions you have with your health care provider. Document Released: 03/19/2004 Document Revised: 12/13/2016 Document Reviewed: 12/13/2016 [employer] Patient Education 2020 [employer]. 01/30/2022 09:29:20 Diabetes Mellitus and Nutrition, Adult Diabetes Mellitus and Nutrition, Adult When you have diabetes (diabetes mellitus), it is very important to have healthy eating habits because your blood sugar (glucose) levels are greatly affected by what you eat and drink. Eating healthyfoods in the appropriate amounts, at about the same times every day, can help you: Control your blood glucose. Lower your risk of heart disease. Improve your blood pressure. Reach or maintain a healthy weight. Every person with diabetes is different, and each person has different needs for a meal plan. Your health care provider may recommend that you work with a diet and director of food and nutrition services (dietitian) tomake a meal plan that is best for you. Your meal plan may vary depending on factors such as: The calories you need. The medicines you take. Your weight. Your blood glucose, blood pressure, and cholesterol levels. Your activity level. Other health conditions you have, such as heart or kidney disease. How do carbohydrates affect me? Carbohydrates, also called carbs, affect your blood glucose level more than any other type of food.Eating carbs naturally raises the amount of glucose in your blood. Carb counting is a method for keeping track of how many carbs you eat. Counting carbs is important to keep your blood glucose at a healthy level, especially if you use insulin or take certain oral diabetes medicines. It is important to know how many carbs you can safely have in each meal. This is different for every person. Your dietitian can help you calculate how many carbs you should have at each meal and for each snack. Foods that contain carbs include: Bread, cereal, rice, pasta, and crackers. Potatoes and corn. Peas, beans, and lentils. Milk and yogurt. Fruit and juice. Desserts, such as cakes, cookies, ice cream, and candy. How does alcohol affect me? Alcohol can cause a sudden decrease in blood glucose (hypoglycemia), especially if you use insulin or take certain oral diabetes medicines. Hypoglycemia can be a life-threatening condition. Symptoms of hypoglycemia (sleepiness, dizziness, and confusion) are similar to symptoms of having too much alcohol. If your health care provider says that alcohol is safe for you, follow these guidelines: Limit alcohol intake to no more than 1 drink per day for non women and 2 drinks per day formen. One drink equals 12 oz of beer, 5 oz of wine, or 1 oz of hard liquor. Do not drink on an empty stomach. Keep yourself hydrated with water, diet soda, or unsweetened iced tea. Keep in mind that regular soda, juice, and other mixers may contain a lot of sugar and must be counted as carbs. What are tips for following this plan? Reading food labels Start by checking the serving size on the Nutrition Facts label of packaged foods and drinks. Theamount of calories, carbs, fats, and other nutrients listed on the label is based on one serving ofthe item. Many items contain more than one serving per package. Check the total grams (g) of carbs in one serving. You can calculate the number of servings of carbs in one serving by dividing the total carbs by 15. For example, if a food has 30 g of total carbs, it would be equal to 2 servings of carbs. Check the number of grams (g) of saturated and trans fats in one serving. Choose foods that have low or no amount of these fats. Check the number of milligrams (mg) of salt (sodium) in one serving. Most people should limit totalsodium intake to less than 2,300 mg per day. Always check the nutrition information of foods labeled as low-fat or nonfat . These foods may be higher in added sugar or refined carbs and should be avoided. Talk to your dietitian to identify your daily goals for nutrients listed on the label. Shopping Avoid buying canned, premade, or processed foods. These foods tend to be high in fat, sodium, and added sugar. Shop around the outside edge of the grocery store. This includes fresh fruits and vegetables, bulk grains, fresh meats, and fresh dairy. Cooking Use low-heat cooking methods, such as baking, instead of high-heat cooking methods like deep frying. Cook using healthy oils, such as olive, canola, or sunflower oil. Avoid cooking with butter, cream, or high-fat meats. Meal planning Eat meals and snacks regularly, preferably at the same times every day. Avoid going long periods oftime without eating. Eat foods high in fiber, such as fresh fruits, vegetables, beans, and whole grains. Talk to your dietitian about how many servings of carbs you can eat at each meal. Eat 4 6 ounces (oz) of lean protein each day, such as lean meat, chicken, fish, eggs, or tofu. One oz of lean protein is equal to: ?1 oz of meat, chicken, or fish. ?1 egg. ? cup of tofu. Eat some foods each day that contain healthy fats, such as avocado, nuts, seeds, and fish. Lifestyle Check your blood glucose regularly. Exercise regularly as told by your health care provider. This may include: ?150 minutes of moderate-intensity or vigorous-intensity exercise each week. This could be brisk walking, biking, or water aerobics. ?Stretching and doing strength exercises, such as yoga or weightlifting, at least 2 times a week. Take medicines as told by your health care provider. Do not use any products that contain nicotine or tobacco, such as cigarettes and e-cigarettes. If you need help quitting, ask your health care provider. Work with a counselor or primary special educator to identify strategies to manage stress and any emotional and social challenges. Questions to ask a health care provider Do I need to meet with a primary special educator? Do I need to meet with a dietitian? What number can I call if I have questions? When are the best times to check my blood glucose? Where to find more information: [place] [employer]: diabetes.org Academy of Nutrition and Dietetics: www.eatright.org National [place] of Diabetes and Digestive and Kidney Diseases (NIH): www.niddk.nih.gov Summary A healthy meal plan will help you control your blood glucose and maintain a healthy lifestyle. Working with a diet and director of food and nutrition services (dietitian) can help you make a meal plan that is bestfor you. Keep in mind that carbohydrates (carbs) and alcohol have immediate effects on your blood glucose levels. It is important to count carbs and to use alcohol carefully. This information is not intended to replace advice given to you by your health care provider. Make sure you discuss any questions you have with your health care provider. Document Released: 12/12/2005 Document Revised: 02/27/2018 Document Reviewed: 04/21/2017 [employer] Patient Education 2020 [employer]. 01/30/2022 09:29:19 Diabetes Mellitus and Foot Care Diabetes Mellitus and Foot Care Foot care is an important part of your health, especially when you have diabetes. Diabetes may cause you to have problems because of poor blood flow (circulation) to your feet and legs, which can cause your skin to: Become thinner and spray drier operator. Break more easily. Heal more slowly. Peel and crack. You may also have nerve damage (neuropathy) in your legs and feet, causing decreased feeling in them. This means that you may not notice minor injuries to your feet that could lead to more serious problems. Noticing and addressing any potential problems early is the best way to prevent future foot problems. How to care for your feet Foot hygiene Wash your feet daily with warm water and mild soap. Do not use hot water. Then, pat your feet and the areas between your toes until they are completely dry. Do not soak your feet as this can dry yourskin. Trim your toenails straight across. Do not dig under them or around the cuticle. File the edges of your nails with an emery board or nail file. Apply a moisturizing lotion or petroleum jelly to the skin on your feet and to dry, brittle toenails. Use lotion that does not contain alcohol and is unscented. Do not apply lotion between your toes. Shoes and socks Wear clean socks or stockings every day. Make sure they are not too tight. Do not wear knee-high stockings since they may decrease blood flow to your legs. Wear shoes that fit properly and have enough cushioning. Always look in your shoes before you put them on to be sure there are no objects inside. To break in new shoes, wear them for just a few hours a day. This prevents injuries on your feet. Wounds, scrapes, corns, and calluses Check your feet daily for blisters, cuts, bruises, sores, and redness. If you cannot see the bottomof your feet, use a mirror or ask someone for help. Do not cut corns or calluses or try to remove them with medicine. If you find a minor scrape, cut, or break in the skin on your feet, keep it and the skin around it clean and dry. You may clean these areas with mild soap and water. Do not clean the area with peroxide, alcohol, or iodine. If you have a wound, scrape, corn, or callus on your foot, look at it several times a day to make sure it is healing and not infected. Check for: ?Redness, swelling, or pain. ?Fluid or blood. ?Warmth. ?Pus or a bad smell. General instructions Do not cross your legs. This may decrease blood flow to your feet. Do not use heating pads or hot water bottles on your feet. They may burn your skin. If you have lost feeling in your feet or legs, you may not know this is happening until it is too late. Protect your feet from hot and cold by wearing shoes, such as at the beach or on hot pavement. Schedule a complete foot exam at least once a year (annually) or more often if you have foot problems. If you have foot problems, report any cuts, sores, or bruises to your health care provider immediately. Contact a health care provider if: You have a medical condition that increases your risk of infection and you have any cuts, sores, orbruises on your feet. You have an injury that is not healing. You have redness on your legs or feet. You feel burning or tingling in your legs or feet. You have pain or cramps in your legs and feet. Your legs or feet are numb. Your feet always feel cold. You have pain around a toenail. Get help right away if: You have a wound, scrape, corn, or callus on your foot and: ?You have pain, swelling, or redness that gets worse. ?You have fluid or blood coming from the wound, scrape, corn, or callus. ?Your wound, scrape, corn, or callus feels warm to the touch. ?You have pus or a bad smell coming from the wound, scrape, corn, or callus. ?You have a fever. ?You have a red line going up your leg. Summary Check your feet every day for cuts, sores, red spots, swelling, and blisters. Moisturize feet and legs daily. Wear shoes that fit properly and have enough cushioning. If you have foot problems, report any cuts, sores, or bruises to your health care provider immediately. Schedule a complete foot exam at least once a year (annually) or more often if you have foot problems. This information is not intended to replace advice given to you by your health care provider. Make sure you discuss any questions you have with your health care provider. Document Released: 03/14/2001 Document Revised: 04/29/2018 Document Reviewed: 04/18/2017 [employer] Patient Education 2020 [employer]. 01/30/2022 09:29:18 Diabetes Mellitus and Exercise Diabetes Mellitus and Exercise Exercising regularly is important for your overall health, especially when you have diabetes (diabetes mellitus). Exercising is not only about losing weight. It has many other health benefits, such as increasing muscle strength and bone density and reducing body fat and stress. This leads to improved fitness, flexibility, and endurance, all of which result in better overall health. Exercise has additional benefits for people with diabetes, including: Reducing appetite. Helping to lower and control blood glucose. Lowering blood pressure. Helping to control amounts of fatty substances (lipids) in the blood, such as cholesterol and triglycerides. Helping the body to respond better to insulin (improving insulin sensitivity). Reducing how much insulin the body needs. Decreasing the risk for heart disease by: ?Lowering cholesterol and triglyceride levels. ?Increasing the levels of good cholesterol. ?Lowering blood glucose levels. What is my activity plan? Your health care provider or certified master locksmith can help you make a plan for the type and frequency of exercise (activity plan) that works for you. Make sure that you: Do at least 150 minutes of moderate-intensity or vigorous-intensity exercise each week. This could be brisk walking, biking, or water aerobics. ?Do stretching and strength exercises, such as yoga or weightlifting, at least 2 times a week. ?Spread out your activity over at least 3 days of the week. Get some form of physical activity every day. ?Do not go more than 2 days in a row without some kind of physical activity. ?Avoid being inactive for more than 30 minutes at a time. Take frequent breaks to walk or stretch. Choose a type of exercise or activity that you enjoy, and set realistic goals. Start slowly, and gradually increase the intensity of your exercise over time. What do I need to know about managing my diabetes? Check your blood glucose before and after exercising. ?If your blood glucose is 240 mg/dL (13.3 mmol/L) or higher before you exercise, check your urine for ketones. If you have ketones in your urine, do not exercise until your blood glucose returns to normal. ?If your blood glucose is 100 mg/dL (5.6 mmol/L) or lower, eat a snack containing 15 20 grams of carbohydrate. Check your blood glucose 15 minutes after the snack to make sure that your level is above 100 mg/dL (5.6 mmol/L) before you start your exercise. Know the symptoms of low blood glucose (hypoglycemia) and how to treat it. Your risk for hypoglycemia increases during and after exercise. Common symptoms of hypoglycemia can include: ?Hunger. ?Anxiety. ?Sweating and feeling clammy. ?Confusion. ?Dizziness or feeling light-headed. ?Increased heart rate or palpitations. ?Blurry vision. ?Tingling or numbness around the mouth, lips, or tongue. ?Tremors or shakes. ?Irritability. Keep a rapid-acting carbohydrate snack available before, during, and after exercise to help preventor treat hypoglycemia. Avoid injecting insulin into areas of the body that are going to be exercised. For example, avoid injecting insulin into: ?The arms, when playing tennis. ?The legs, when jogging. Keep records of your exercise habits. Doing this can help you and your health care provider adjust your diabetes management plan as needed. Write down: ?Food that you eat before and after you exercise. ?Blood glucose levels before and after you exercise. ?The type and amount of exercise you have done. ?When your insulin is expected to peak, if you use insulin. Avoid exercising at times when your insulin is peaking. When you start a new exercise or activity, work with your health care provider to make sure the activity is safe for you, and to adjust your insulin, medicines, or food intake as needed. Drink plenty of water while you exercise to prevent dehydration or heat stroke. Drink enough fluid to keep your urine clear or pale yellow. Summary Exercising regularly is important for your overall health, especially when you have diabetes (diabetes mellitus). Exercising has many health benefits, such as increasing muscle strength and bone density and reducing body fat and stress. Your health care provider or certified master locksmith can help you make a plan for the type and frequency of exercise (activity plan) that works for you. When you start a new exercise or activity, work with your health care provider to make sure the activity is safe for you, and to adjust your insulin, medicines, or food intake as needed. This information is not intended to replace advice given to you by your health care provider. Make sure you discuss any questions you have with your health care provider. Document Released: 06/06/2004 Document Revised: 2017 Document Reviewed: 08/26/2016 [employer] Patient Education 2020 [employer]. Follow Up Care 01/28/2022 11:57:18 With:NOMI WETZEL Address: [address], [address] [place] [address]- Business (1) When:02/05/2022 09:40:00 Comments:For DKA & Renal Failure With:Marcelo Link Address: [address] [facility] [place] [address]- Business (1) When:02/08/2022 10:15:00 [facility]10-30-2022 Hospital Discharge instructions Patient Education 01/27/2022 18:13:28 Diarrhea, Adult Diarrhea, Adult Diarrhea is frequent loose and watery bowel movements. Diarrhea can make you feel weak and cause you to become dehydrated. Dehydration can make you tired and thirsty, cause you to have a dry mouth, and decrease how often you urinate. Diarrhea typically lasts 2 3 days. However, it can last longer if it is a sign of something more serious. It is important to treat your diarrhea as told by your health care provider. Follow these instructions at home: Eating and drinking Follow these recommendations as told by your health care provider: Take an oral rehydration solution (ORS). This is an xdnj-yod-bvvrryf medicine that helps return your body to its normal balance of nutrients and water. It is found at pharmacies and retail stores. Drink plenty of fluids, such as water, ice chips, diluted fruit juice, and low- calorie sports drinks. You can drink milk also, if desired. Avoid drinking fluids that contain a lot of sugar or caffeine, such as energy drinks, sports drinks, and soda. Eat bland, gwdw-to-zdbecf foods in small amounts as you are able. These foods include bananas, applesauce, rice, lean meats, toast, and crackers. Avoid alcohol. Avoid spicy or fatty foods. Medicines Take syux-yfk-qjclpio and prescription medicines only as told by your health care provider. If you were prescribed an antibiotic medicine, take it as told by your health care provider. Do notstop using the antibiotic even if you start to feel better. General instructions Wash your hands often using soap and water. If soap and water are not available, use a hand floral designer. Others in the household should wash their hands as well. Hands should be washed: ?After using the toilet or changing a diaper. ?Before preparing, cooking, or serving food. ?While caring for a sick person or while visiting someone in a hospital. Drink enough fluid to keep your urine pale yellow. Rest at home while you recover. Watch your condition for any changes. Take a warm bath to relieve any burning or pain from frequent diarrhea episodes. Keep all follow-up visits as told by your health care provider. This is important. Contact a health care provider if: You have a fever. Your diarrhea gets worse. You have new symptoms. You cannot keep fluids down. You feel light-headed or dizzy. You have a headache. You have muscle cramps. Get help right away if: You have chest pain. You feel extremely weak or you faint. You have bloody or black stools or stools that look like tar. You have severe pain, cramping, or bloating in your abdomen. You have trouble breathing or you are breathing very quickly. Your heart is beating very quickly. Your skin feels cold and clammy. You feel confused. You have signs of dehydration, such as: ?Dark urine, very little urine, or no urine. ?Cracked lips. ?Dry mouth. ?Sunken eyes. ?Sleepiness. ?Weakness. Summary Diarrhea is frequent loose and watery bowel movements. Diarrhea can make you feel weak and cause you to become dehydrated. Drink enough fluids to keep your urine pale yellow. Make sure that you wash your hands after using the toilet. If soap and water are not available, usehand floral designer. Contact a health care provider if your diarrhea gets worse or you have new symptoms. Get help right away if you have signs of dehydration. This information is not intended to replace advice given to you by your health care provider. Make sure you discuss any questions you have with your health care provider. Document Released: 03/07/2003 Document Revised: 08/03/2019 Document Reviewed: 08/21/2018 [employer] Patient Education 2020 [employer]. 01/27/2022 18:13:28 Nausea and Vomiting, Adult Nausea and Vomiting, Adult Nausea is the feeling that you have an upset stomach or that you are about to vomit. Vomiting is when stomach contents are thrown up and out of the mouth as a result of nausea. Vomiting can make you feel weak and cause you to become dehydrated. Dehydration can make you feel tired and thirsty, cause you to have a dry mouth, and decrease how often you urinate. Older adults and people with other diseases or a weak disease-fighting system (immune system) are at higher risk for dehydration. It is important to treat your nausea and vomiting as told by your health care provider. Follow these instructions at home: Watch your symptoms for any changes. Tell your health care provider about them. Follow these instructions to care for yourself at home. Eating and drinking Take an oral rehydration solution (ORS). This is a drink that is sold at pharmacies and retail stores. Drink clear fluids slowly and in small amounts as you are able. Clear fluids include water, ice chips, low-calorie sports drinks, and fruit juice that has water added (diluted fruit juice). Eat bland, nlua-cw-zzuwgu foods in small amounts as you are able. These foods include bananas, applesauce, rice, lean meats, toast, and crackers. Avoid fluids that contain a lot of sugar or caffeine, such as energy drinks, sports drinks, and soda. Avoid alcohol. Avoid spicy or fatty foods. General instructions Take jaoo-siz-oqafinx and prescription medicines only as told by your health care provider. Drink enough fluid to keep your urine pale yellow. Wash your hands often using soap and water. If soap and water are not available, use hand floral designer. Make sure that all people in your household wash their hands well and often. Rest at home while you recover. Watch your condition for any changes. Breathe slowly and deeply when you feel nauseated. Keep all follow-up visits as told by your health care provider. This is important. Contact a health care provider if: Your symptoms get worse. You have new symptoms. You have a fever. You cannot drink fluids without vomiting. Your nausea does not go away after 2 days. You feel light-headed or dizzy. You have a headache. You have muscle cramps. You have a rash. You have pain while urinating. Get help right away if: You have pain in your chest, neck, arm, or jaw. You feel extremely weak or you faint. You have persistent vomiting. You have vomit that is bright red or looks like black coffee grounds. You have bloody or black stools or stools that look like tar. You have a severe headache, a stiff neck, or both. You have severe pain, cramping, or bloating in your abdomen. You have difficulty breathing, or you are breathing very quickly. Your heart is beating very quickly. Your skin feels cold and clammy. You feel confused. You have signs of dehydration, such as: ?Dark urine, very little urine, or no urine. ?Cracked lips. ?Dry mouth. ?Sunken eyes. ?Sleepiness. ?Weakness. These symptoms may represent a serious problem that is an emergency. Do not wait to see if the symptoms will go away. Get medical help right away. Call your local emergency services (911 in the [place] Do not drive yourself to the hospital. Summary Nausea is the feeling that you have an upset stomach or that you are about to vomit. As nausea getsworse, it can lead to vomiting. Vomiting can make you feel weak and cause you to become dehydrated. Follow instructions from your health care provider about eating and drinking to prevent dehydration. Take surz-nub-dayomca and prescription medicines only as told by your health care provider. Contact your health care provider if your symptoms get worse, or you have new symptoms. Keep all follow-up visits as told by your health care provider. This is important. This information is not intended to replace advice given to you by your health care provider. Make sure you discuss any questions you have with your health care provider. Document Released: 03/17/2006 Document Revised: 07/09/2019 Document Reviewed: 08/25/2018 [employer] Patient Education 2020 [employer]. 01/27/2022 18:13:28 Abdominal Pain, Adult Abdominal Pain, Adult Pain in the abdomen (abdominal pain) can be caused by many things. Often, abdominal pain is not serious and it gets better with no treatment or by being treated at home. However, sometimes abdominal pain is serious. Your health care provider will ask questions about your medical history and do a physical exam to try to determine the cause of your abdominal pain. Follow these instructions at home: Medicines Take zvcr-xys-gllkfao and prescription medicines only as told by your health care provider. Do not take a laxative unless told by your health care provider. General instructions Watch your condition for any changes. Drink enough fluid to keep your urine pale yellow. Keep all follow-up visits as told by your health care provider. This is important. Contact a health care provider if: Your abdominal pain changes or gets worse. You are not hungry or you lose weight without trying. You are constipated or have diarrhea for more than 2 3 days. You have pain when you urinate or have a bowel movement. Your abdominal pain wakes you up at night. Your pain gets worse with meals, after eating, or with certain foods. You are vomiting and cannot keep anything down. You have a fever. You have blood in your urine. Get help right away if: Your pain does not go away as soon as your health care provider told you to expect. You cannot stop vomiting. Your pain is only in areas of the abdomen, such as the right side or the left lower portion of the abdomen. Pain on the right side could be caused by appendicitis. You have bloody or black stools, or stools that look like tar. You have severe pain, cramping, or bloating in your abdomen. You have signs of dehydration, such as: ?Dark urine, very little urine, or no urine. ?Cracked lips. ?Dry mouth. ?Sunken eyes. ?Sleepiness. ?Weakness. You have trouble breathing or chest pain. Summary Often, abdominal pain is not serious and it gets better with no treatment or by being treated at home. However, sometimes abdominal pain is serious. Watch your condition for any changes. Take szju-uvx-oadyfnd and prescription medicines only as told by your health care provider. Contact a health care provider if your abdominal pain changes or gets worse. Get help right away if you have severe pain, cramping, or bloating in your abdomen. This information is not intended to replace advice given to you by your health care provider. Make sure you discuss any questions you have with your health care provider. Document Released: 12/25/2005 Document Revised: 07/26/2019 Document Reviewed: 07/26/2019 [employer] Patient Education 2019 [employer]. Follow Up Care 01/27/2022 14:43:33 With:London DIAZ Address: [address] [place] [id number] Business (1) When:01/30/2022 17:32:45 Comments:Return to the emergency room if your pain gets worse, you develop fever, vomiting recurs or any newsymptoms. With:Marcelo Call Address: [address] [place] [address]- Business (1) When:Within 3 Day(s) [facility]10-30-2022 Evaluation + Plan noteExtracted from: Title:ED Note Author:Ismale Harrington, Earnest Biggs te:01/27/22 1. Abdominal pain (R10.9: Un specified abdominal pain) 2. Vomiting and diarrhea (R11.10: Vomiting, unspecified) Diarrhea, unspecified (R19.7: Diarrhea, unspecified) Orders: diphenhydrAMINE, 25 mg = 0.5 mL, Injection, IV Push, Once, Stop date 01/27/22 16:02:00 EDT, STAT, Start date 01/27/22 16:02:00 EDT, 01/27/22 16:02:00 EDT methylPREDNISolone, 80 mg = 2 mL, Injection, IV Push, Once, Stop date 01/27/22 16:02:00 EDT, STAT, Start date 01/27/22 16:02:00 EDT, 01/27/22 16:02:00 EDT morphine, 4 mg = 2 mL, Injection, IV Push, Once, Stop date 01/27/22 16:47:00 EDT, STAT, Start date 01/27/22 16:47:00 EDT, 01/27/22 16:47:00 EDT ondansetron, 4 mg = 1 tab(s), Tab-Dis, Oral, Once, Stop date 01/27/22 14:54:00 EDT, STAT, Start date 01/27/22 14:54:00 EDT, 01/27/22 14:54:00 EDT Sodium Chloride 0.9% intravenous solution 1,000 mL, 1,000 mL, IV, 125 mL/hr, STAT, Start date 01/27/22 14:54:00 EDT, 8 hour(s), Total volume (mL): 1,000, 73 kg, 1.81, m2 Automated Diff Basic Metabolic Panel CBC w/ Auto Diff CT Abdomen/Pelvis w/ Contrast eGFR Hepatic Function Panel Lipase Level Magnesium Level PT & PTT UA With Cult Reflex [facility]08-20-2022 Hospital Discharge instructions Patient Education 11/17/2021 20:23:44 Hypoglycemia, Cbes-zx-Yesp Hypoglycemia Hypoglycemia is when the sugar (glucose) level in your blood is too low. Signs of low blood sugar may include: Feeling: ?Hungry. ?Worried or nervous (anxious). ?Sweaty and clammy. ?Confused. ?Dizzy. ?Sleepy. ?Sick to your stomach (nauseous). Having: ?A fast heartbeat. ?A headache. ?A change in your vision. ?Tingling or no feeling (numbness) around your mouth, lips, or tongue. ?Jerky movements that you cannot control (seizure). Having trouble with: ?Moving (coordination). ?Sleeping. ?Passing out (fainting). ?Getting upset easily (irritability). Low blood sugar can happen to people who have diabetes and people who do not have diabetes. Low blood sugar can happen quickly, and it can be an emergency. Treating low blood sugar Low blood sugar is often treated by eating or drinking something sugary right away, such as: Fruit juice, 4 6 oz (120 150 mL). Regular soda (not diet soda), 4 6 oz (120 150 mL). Low-fat milk, 4 oz (120 mL). Several pieces of hard candy. Sugar or honey, 1 Tbsp (15 mL). Treating low blood sugar if you have diabetes If you can think clearly and swallow safely, follow the 15:15 rule: Take 15 grams of a fast-acting carb (carbohydrate). Talk with your doctor about how much you shouldtake. Always keep a source of fast-acting carb with you, such as: ?Sugar tablets (glucose pills). Take 3 4 pills. ?6 8 pieces of hard candy. ?4 6 oz (120 150 mL) of fruit juice. ?4 6 oz (120 150 mL) of regular (not diet) soda. ?1 Tbsp (15 mL) honey or sugar. Check your blood sugar 15 minutes after you take the carb. If your blood sugar is still at or below 70 mg/dL (3.9 mmol/L), take 15 grams of a carb again. If your blood sugar does not go above 70 mg/dL (3.9 mmol/L) after 3 tries, get help right away. After your blood sugar goes back to normal, eat a meal or a snack within 1 hour. Treating very low blood sugar If your blood sugar is at or below 54 mg/dL (3 mmol/L), you have very low blood sugar (severe hypoglycemia). This may also cause: Passing out. Jerky movements you cannot control (seizure). Losing consciousness (coma). This is an emergency. Do not wait to see if the symptoms will go away. Get medical help right away.Call your local emergency services (911 in the [place] Do not drive yourself to the hospital. If you have very low blood sugar and you cannot eat or drink, you may need a glucagon shot (injection). A family member or friend should learn how to check your blood sugar and how to give you a glucagon shot. Ask your doctor if you need to have a glucagon shot kit at home. Follow these instructions at home: General instructions Take ryhh-erq-fwnxnol and prescription medicines only as told by your doctor. Stay aware of your blood sugar as told by your doctor. Limit alcohol intake to no more than 1 drink a day for non women and 2 drinks a day for men. One drink equals 12 oz of beer (355 mL), 5 oz of wine (148 mL), or 1 oz of hard liquor (44 mL). Keep all follow-up visits as told by your doctor. This is important. If you have diabetes: Follow your diabetes care plan as told by your doctor. Make sure you: ?Know the signs of low blood sugar. ?Take your medicines as told. ?Follow your exercise and meal plan. ?Eat on time. Do not skip meals. ?Check your blood sugar as often as told by your doctor. Always check it before and after exercise. ?Follow your sick day plan when you cannot eat or drink normally. Make this plan ahead of time withyour doctor. Share your diabetes care plan with: ?Your work or school. ?People you live with. Check your pee (urine) for ketones: ?When you are sick. ?As told by your doctor. Carry a card or wear jewelry that says you have diabetes. Contact a doctor if: You have trouble keeping your blood sugar in your target range. You have low blood sugar often. Get help right away if: You still have symptoms after you eat or drink something sugary. Your blood sugar is at or below 54 mg/dL (3 mmol/L). You have jerky movements that you cannot control. You pass out. These symptoms may be an emergency. Do not wait to see if the symptoms will go away. Get medical help right away. Call your local emergency services (911 in the [place] Do not drive yourself to the hospital. Summary Hypoglycemia happens when the level of sugar (glucose) in your blood is too low. Low blood sugar can happen to people who have diabetes and people who do not have diabetes. Low blood sugar can happen quickly, and it can be an emergency. Make sure you know the signs of low blood sugar and know how to treat it. Always keep a source of sugar (fast-acting carb) with you to treat low blood sugar. This information is not intended to replace advice given to you by your health care provider. Make sure you discuss any questions you have with your health care provider. Document Released: 06/11/2010 Document Revised: 07/08/2019 Document Reviewed: 04/19/2016 [employer] Patient Education 2020 [employer] Follow Up Care 11/17/2021 17:29:57 With:Marcelo Link Address: [address] [place] [address]- Business (1) When:11/20/2021 20:12:53 [facility] No data available for this section [facility] Future Appointments Appointment Date:11/13/2021 02:45:00 PM Scheduled Provider: Location:.[place] App[facility]ment Type:[facility] Eval (FT[facility] Future Appointments Appointment Date:04/10/2022 10:15:00 AM Scheduled Provider:London DIAZ MD Location:[facility] Appointment Type:BADH [facility] Future Appointments Appointment Date:06/14/2022 12:30:00 PM Scheduled Provider: Location:[facility] Appointment Type:Surgery FT Future Scheduled Tests Radiology* NM Gastric Emptying Study 04/10/22 [facility] Evaluation note* Diagnosis Anxiety- Primary Anxiety state, unspecified documented in this encounter [facility] Other History general Narrative - Reported* Type Description Date Medical History DEPRESSION Medical History HTN Medical History ARTHRITIS Medical History DIABETES Medical History NEUROPATHY Surgical History BILATERAL KNEE REPLACEMENT Surgical History LEFT HIP Surgical History LEFT THUMB Surgical History HYSTERECTOMY Surgical History GALLBLADDER Surgical History TUMOR LEFT SHOULDER Hospitalization History SEE ABOVE BIO-NEMS Other Hospital Discharge instructions No data available for this section [facility] No data available for this section [facility] Summary Purpose Family History No Family History Records FoundNo Family History Records Found No data available for this section No Family History Records Found No data available for this section Advance Directives No Advanced Directives Records FoundNo Advanced Directives Records FoundNo Advanced Directives Records Found Additional Source Comments Care Team (unrecognized sect ion and content) Personnel Name: Marcelo Call DO Address: [address] [place] [address] Name: Efrem Matos Name: Matthieu Ware Name: Hayde Morrison Name: Kady Stephenson Name: Angie Flores LPN Name: Ellyn Melendez I Name: Ellyn Gómez Personnel Name: Marcelo Call DO Address: Address: [address] [place] [address] Name: Efrem Matos Name: Matthieu Ware H Name: Hayde Morrison A Name: Seema, Kady L Name: Zidarin SEWER LINE REPAIRER, Angie Name: Richuiti, Ellyn I Name: Holleran, Ellyn Personnel Name: [facility] Address: Address: [address] [place] [address] Name: Efrem Matos L Name: Matthieu Ware H Name: Hayde Morrison A Name: Seema, Kady L Name: Zidarin SEWER LINE REPAIRER, Angie Name: Richuiti, Ellyn I Name: Holleran, Ellyn Personnel Name: [facility] Address: Address: [address] [place] [address] Name: Efrem Matos Name: Matthieu Ware H Name: Hayde Morrison A Name: Seema, Kady L Name: Zidarin SEWER LINE REPAIRER, Angie Name: Richuiti, Ellyn I Name: Holleran, Ellyn Personnel Name: [facility] Address: Address: [address] [place] [address] Name: Pradeep QUIGLEY, Sienna J Name: Efrem Matos Name: Matthieu Ware H Name: Hayde Morrison A Name: Seema, Kady L Name: Zidarin SEWER LINE REPAIRER, Angie Name: Richuiti, Ellyn I Name: Holleran, Ellyn Personnel Name: [facility] Address: Address: [address] [place] [address] Name: Pradeep SEWER LINE REPAIRER, Sienna J Name: Efrem Matos L Name: Matthieu Ware H Name: Hayde Morrison A Name: Seema Kady L Name: Zidarin SEWER LINE REPAIRER, Angie Name: Richuiti, Ellyn I Name: Holleran, Ellyn Personnel Name: [facility] Address: Address: [address] [place] [address] Name: Pradeep SEWER LINE REPAIRER, Sienna J Name: Efrem Matos Name: Matthieu Ware H Name: Hayde Morrison A Name: Seema, Kady L Name: Zidarin SEWER LINE REPAIRER, Angie Name: Richuiti, Ellyn I Name: Holleran, Ellyn Personnel Name: [facility] Address: Address: [address] [place] [address]- Name: Pradeep SEWER LINE REPAIRER, Sienna J Name: Efrem Matos L Name: Matthieu Ware H Name: Hayde Morrison A Name: Seema, Kady L Name: Zidarin SEWER LINE REPAIRER, Angie Name: Richuiti, Ellyn I Name: Holleran, Ellyn Personnel Name: [facility] Address: Address: [address] [place] [address] Name: Pradeep SEWER LINE REPAIRER, Sienna J Name: Efrem Matos L Name: Matthieu Ware Name: Hayde Morrison A Name: Dominga Stephensonah L Name: Zidarin SEWER LINE REPAIRER, Angie Name: Richuiti, Ellyn I Name: Holleran, Ellyn Personnel Name: [facility] Address: Address: [address] [place] [address] Name: Pradeep SEWER LINE REPAIRER, Sienna J Name: Efrem Matos L Name: Matthieu Ware H Name: Hayde Morrison A Name: Seema, Kady L Name: Zidarin SEWER LINE REPAIRER, Angie Name: Richuiti, Ellyn I Name: Holleran, Ellyn Personnel Name: [facility] Address: Address: [address] [place] [address] Name: Pradeep SEWER LINE REPAIRER, Sienna J Name: Jeff Matosby L Name: Matthieu Ware H Name: Hayde Morrison A Name: Seema Kady L Name: Zidarin SEWER LINE REPAIRER, Angie Name: Richuiti, Ellyn I Name: Holleran, Ellyn Personnel Name: [facility] Address: Address: [address] [place] [address] Name: Pradeep SEWER LINE REPAIRER, Sienna J Name: Beaudvesna, Efrem L Name: Michael Warean H Name: Hayde Morrison A Name: Seema, Kady L Name: Zidarin SEWER LINE REPAIRER, Angie Name: Richuiti, Ellyn I Name: Holleran, Ellyn Personnel Name: [facility] Address: Address: [address] [place] [address] Name: Pradeep SEWER LINE REPAIRER, Sienna J Name: BeJeff marinby L Name: Matthieu Ware H Name: Hayde Morrison A Name: Seema, Kady L Name: Zidarin SEWER LINE REPAIRER, Angie Name: Richuiti, Ellyn I Name: Holleran, Ellyn Personnel Name: [facility] Address: Address: [address] [place] [address] Name: Pradeep SEWER LINE REPAIRER, Sienna J Name: Efrem Matos L Name: Matthieu Ware H Name: Hayde Morrison A Name: Dominga Stephensonah L Name: Zidarin SEWER LINE REPAIRER, Angie Name: Richuiti, Ellyn I Name: Holleran, Ellyn Personnel Name: [facility] Address: Address: [address] [place] [address] Name: Pradeep SEWER LINE REPAIRER, Sienna J Name: Beaudvesna Efrem L Name: Michael Warean H Name: Hayde Morrison A Name: Seema Kady L Name: Zidarin SEWER LINE REPAIRER, Angie Name: Richuiti, Ellyn I Name: Holleran, Ellyn Personnel Name: [facility] Address: Address: [address] [place] [address] Name: Pradeep SEWER LINE REPAIRER, Sienna J Name: Jeff Matosby L Name: Matthieu Ware H Name: Hayde Morrison A Name: Seema Kady L Name: Zidarin SEWER LINE REPAIRER, Angie Name: Richuiti, Ellyn I Name: Holleran, Ellyn Personnel Name: [facility] Address: Address: [address] [place] [address]- Name: Pradeep SEWER LINE REPAIRER, Sienna J Name: BeJeff marinby L Name: Matthieu Ware H Name: Hayde Morrison A Name: Seema, Kady L Name: Zidarin SEWER LINE REPAIRER, Angie Name: Richuiti, Ellyn I Name: Holleran, Ellyn Personnel Name: [facility] Address: Address: [address] [place] [address] Name: Pradeep SEWER LINE REPAIRER, Sienna J Name: BeJeff marinby L Name: Matthieu Ware H Name: Hayde Morrison A Name: Seema Kady L Name: Zidarin SEWER LINE REPAIRER, Angie Name: Richuiti, Ellyn I Name: Holleran, Ellyn Personnel Name: [facility] Address: Address: [address] [place] [address] Name: Pradeep SEWER LINE REPAIRER, Sienna J Name: Efrem Matos L Name: Matthieu Ware H Name: Hayde Morrison A Name: Seema Kady L Name: Zidarin SEWER LINE REPAIRER, Angie Name: Richuiti, Ellyn I Name: Holleran, Ellyn Personnel Name: [facility] Address: Address: [address] [place] [address] Name: Pradeep SEWER LINE REPAIRER, Sienna J Name: BeJeff marinby L Name: Matthieu Ware H Name: Hayde Morrison A Name: Seema Kady L Name: Zidarin SEWER LINE REPAIRER, Angie Name: Richuiti, Ellyn I Name: Holleran, Ellyn Personnel Name: [facility] Address: Address: [address] [place] [address] Name: Pradeep SEWER LINE REPAIRER, Sienna J Name: BeJeff marinby L Name: Michael Warean H Name: Arnie Morrisonle A Name: Seema, Kady L Name: Zidarin SEWER LINE REPAIRER, Angie Name: Richuiti, Ellyn I Name: Holleran, Ellyn Personnel Name: [facility] Address: Address: [address] [place] [address] Name: Pradeep SEWER LINE REPAIRER, Sienna J Name: Efrem Matos L Name: Matthieu Ware H Name: Hayde oMrrison A Name: Stephenson, Kady L Name: Zidarin SEWER LINE REPAIRER, Angie Name: Davinuiti, Ellyn I Name: Dalia Ellyn [facility] Address: Address: [address] [place] [address] Name: Pradeep SEWER LINE REPAIRER, Sienna J Name: Efrem Matos L Name: Matthieu Ware H Name: Hayde Morrison A Name: Seema, Kady L Name: Ceciliodaimelda SEWER LINE REPAIRER, Angie Name: Al, Ellyn I Name: Dalia Ellyn [facility] Address: Address: [address] [place] [address] Name: VincentDevang mccarthyfarhad Han Name: Pradeep SEWER LINE REPAIRER, Sienna J Name: BeEfrem marin L Name: Matthieu Ware Name: Hayde Morrison Name: Kady Stephenson L Name: Zidarin SEWER LINE REPAIRER, Angie Name: Al, Ellyn I Name: Dalia Ellyn INFORMATION SOURCE (unrecogn ized section and content) DATE CREATED AUTHOR 02/06/2022 [facility] DATE CREATED AUTHOR AUTHOR'S ORGANIZ ATION 08/11/2022 [facility] DATE CREATED AUTHOR AUTHOR'S ORGANIZ ATION 03/21/2023 [facility] Reason for Visit (unrecogniz ed section and content) Reason Comments Hypertension FOR RECORDS PERTAINING TO PATIENTS WHO ARE OR HAVE BEEN ENROLLED IN A CHEMICAL DEPENDENCY/SUBSTANCEABUSE PROGRAM, SOME INFORMATION MAY BE OMITTED. This clinical summary was aggregated from multiple sources. Caution should be exercised in using it in the provision of clinical care. This summary normalizes information from multiple sources, and as a consequence, information in this document may materially change the coding, format and clinical context of patient data. In addition, data may be omitted in some cases. CLINICAL DECISIONS SHOULD BE BASED ON THE PRIMARY CLINICAL RECORDS. [facility] provides no warranty or guarantee of the accuracy or completeness of information in this document.
[2023-04-14 09:40] LABS: Anion Gap 10.4; BUN Creatinine Ratio 28.6; Calcium 8.9 mg/dL (8.5-10.1); Carbon Dioxide 28.6 mmol/L (21.0-32.0); Chloride 110 mmol/L (98-107); Creatine Kinase 28 U/L (26-192); Estimated GFR (African America >60 (>=60); Estimated GFR (Non-African Ame >60 (>=60); Glucose 64 mg/dL (74-106); Sodium 145 mmol/L (136-145)
[2023-04-14 09:49] LABS: C Reactive Protein <0.50 mg/dL (<=0.50)
== END 2023-04-14 00:37 | disposition home or self-care (01) ==
LOC: LAB 00:36
PROVIDERS: PCP Family Medicine; Visit Provider Family Medicine
DX: Z51.81 Encounter for therapeutic drug level monitoring (principal)
CPT/HCPCS: 36415; 80048; 82550; 86140

== ENCOUNTER 2023-04-28 03:24 | Outpatient (REF) | payer MEDICARE, MEDICAID, SELFPAY ==
--- OUTSIDE RECORDS SUMMARY | 2023-04-28 03:30 | XMS_ITS | CCD ---
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 Name Role Phone Link, Marcelo Tita Primary [...] Bandage] Drug allergy Eruption of skin (disorder) [facility] (20 sources) Amoxicillin; Translations: [amoxicillin] Drug Allergy Anaphylaxis (disorder) [facility] Comment on above: Tolerated ceftriaxon e several times in past (20 sources) bacitracin / neomycin / polymyxin b; Translations: [bacitracin/neomy andrea/polymyxin B topical] Drug Allergy Eruption of skin (disorder) [facility] (20 sources) celecoxib; Translations: [celecoxib] Drug Allergy Eruption of skin (disorder) [facility] (20 sources) Penicillin; Translations: [penicillin] Drug Allergy Anaphylaxis (disorder) [facility] Comment on above: Tolerated ceftriaxon e several times in past (20 sources) Sulfamethoxazole; Translations: [sulfamethoxazole ] Drug Allergy unknown [facility] (20 sources) Triclosan; Translations: [triclosan topical] Drug Allergy Eruption of skin (disorder) [facility] (20 sources) goldbond cream; Translations: [goldbond cream] Drug allergy Eruption of skin (disorder) [facility] (3 sources) Aloe Extract Drug Allergy Unknown [facility] (3 sources) Bacitracin / Polymyxin B Drug Allergy Unknown [facility] (3 sources) Benzalkonium Drug Allergy Unknown [facility] (3 sources) corn starch Drug Allergy Unknown [facility] (3 sources) dimethicone Drug Allergy Unknown [facility] (3 sources) Kaolin Drug Allergy Unknown [facility] Other (4 sources) meloxicam; Translations: [meloxicam] Drug Allergy Unknown [facility] Repository (3 sources) pramoxine Drug Allergy Unknown [facility] Other (3 sources) Zinc Oxide Drug Allergy Unknown [facility] Other (3 sources) Substance with sulfonamide structure and antibacterial mechanism of action (substance) Drug allergy Unknown [facility] Other (1 source) Acetaminophen / HYDROcodone; Translations: [Vicodin] Drug Allergy [facility] Repository (1 source) Latex; Translations: [Latex] Propensity to adverse reactions (disorder) [facility] Rep[facility] (1 source) Penicillin; Translations: [penicillin] Drug Allergy [facility] Repository Medications Current Medications Medication Drug Class(es) Dates Sig (Normalized) Sig (Original) acetaminophen 325 mg oral tablet (3 sources) take 1 tablet by mouth every eight hours Acetaminophen 325 MG 1 tablet as needed Orally TID Active acetaminophen 325 mg / HYDROcodone bitartrate 5 mg oral tablet (16 sources) Opioid Agonist Start: 01-28-2022 take 1 tablet by mouth twice daily for pain [place] 325 mg-5 mg oral tablet 1 tab(s), [...] M19.9 hip fracture, 80 tab(s), Refill(s) 0, [facility], 162, cm, 11/24/22 0:45:00 EDT, Height/Length [...] for 3 day(s), 12 tab(s), Refill(s) 0, [facility], 165, cm, 03/13/22 16:40:00 EST, Height/Length [...] q8hr, # 30 cap(s), Refills(s) 0, Pharmacy: [facility], 163, cm, 05/23/21 14:18:00 EST, Height/Length [...] day(s), # 28 cap(s), Refills(s) 0, Pharmacy: [facility], 165, cm, 03/13/22 16:40:00 EST, Height/Length [...] Ordered Start: 05-23-2021 take 1 capsule by [facility] once daily esomeprazole 20 mg Cap-DR 20 mg = 1 cap(s), Oral, Daily, # 30 cap(s), Refills(s) 0, Control of stomach acid Start Date: 05/23/21 Status: Ordered take 1 capsule by [facility] every twenty-four hours ferrous sulfate 325 mg [...] Ordered Start: 02-26-2018 take 1 capsule by [facility] three times daily gabapentin 300 mg Cap [...] acid Start Date: 04/10/22 Status: Ordered nystatin 442502 unt/ml topical cream (3 sources) Polyene Antifungal [...] Ordered Start: 08-14-2020 take 5 tablets by [facility] once daily Paxil 10 mg Tab 50 mg = 5 tab(s), Oral, Daily, Depression Start Date: 08/14/20 Status: Ordered take 1 tablet by [facility] every twenty-four hours rosuvastatin calcium 20 mg [...] Nausea/Vomiting, # 16 tab(s), Refills(s) 0, Pharmacy: [facility], 162.6, cm, 11/21/21 19:39:00 EDT, Height/Length [...] per packaging and physician's handout, [facility], 165, cm, 04/10/22 11:05:00 EST, [...] above: left right Other aftercare (2 sources) [employer] continuous churn (current) use of antibiotics Episodic Other and [...] Prescriptions/Work Noteson 1 05-14-2022 Prescriptions/Work Notes [id number]#1.00TIFF Normal [facility] CHEMISTRYOrdered By: SYSTEM SYSTEM on 02-13-2023 Anion [...] 94 mL/min/1.73 m2 Normal >=59mL/min/1.7 3 m2 [facility] Chem S Comment on above: Interpretive Data: [...] High 55 - 99 mg/dL [facility] C POC Subsection POC Username NELLY ROJAS Invalid Interpretation Code [facility] POC Subsection Sodium [Moles/Vol] 773735816553 mmol/L Invalid Interpretation Code [facility] POC Subsection Sodium [Moles/Vol] 487164816 mmol/L Invalid Interpretation Code [facility] POC Subsection HEMATOLOGYOrdered By: Gail Felix on [...] Occasional White Blood Cells No organisms seen. [facility] Blood Transfusion Recordon 1 04-07-2022 Blood Transfusion Record [id number]#1.00TIFF [facility] IntraOperative Documentson 1 IntraOperative Documents [id number]#1.00TIFF [facility] IntraOperative Documentson 1 IntraOperative Documents [id number]#1.00CD:127 [facility] C Blood Charcoalon 3 Blood Culture Charcoal Normal [facility] Comment on above: Performed By: #### 1 [id number] ####[facility] [address] [place] [address] Consent for PICC lineon 11-30 Consent for PICC line [id number]#1.00CD:127 [facility] Insurance Correspondence Off iceon 12-25-2022 Insurance Correspondence Office [id number]#1.00CD:127 [facility] Intermediate Recordson 12-25 Intermediate Records [id number]#1.00CD:127 [facility] Transfer Documentson 023 Transfer Documents [id number]#1.00CD:127 [facility] CHEMISTRYOrdered By: Lab ROP User on 12-24-2022 Glucose [Mass/Vol] 102 mg/dL High 55 - 99 mg/dL [facility] C POC Subsection Comment on above: Result Comment: Fausto rubi RN/ POC Username IRINA JANE Invalid Interpretation Code [facility] POC Subsection Sodium [Moles/Vol] 183318388251 mmol/L Invalid Interpretation Code [facility] POC Subsection Sodium [Moles/Vol] 445356594 mmol/L Invalid Interpretation Code [facility] POC Subsection Glucose [Mass/Vol] 194 mg/dL High 55 - 99 mg/dL [facility] C POC Subsection Comment on above: Result Comment: Fausto CHAUDHARY POC Username IRINA JANE Invalid Interpretation Code [facility] POC Subsection Sodium [Moles/Vol] 815380053408 mmol/L Invalid Interpretation Code [facility] POC Subsection Sodium [Moles/Vol] 204889340 mmol/L Invalid Interpretation Code [facility] POC Subsection Glucose [Mass/Vol] 130 mg/dL High 55 - 99 mg/dL [facility] C POC Subsection Comment on above: Result Comment: Fausto CHAUDHARY POC Username ANTOLIN SHEPPARD Invalid Interpretation Code [facility] POC Subsection Sodium [Moles/Vol] 436916716537 mmol/L Invalid Interpretation Code [facility] POC Subsection Sodium [Moles/Vol] 040885586 mmol/L Invalid Interpretation Code [facility] POC Subsection Capillary Glucose POCon 11-30 Glucose [Mass/Vol] 102 mg/dL High 55-99 [facility] Comment on above: Result Comment: Fausto CHAUDHARY Performed By: #### 2 [id number] ####[facility] [address] [place] [address] Glucose [Mass/Vol] 194 mg/dL High 55-99 [facility] Comment on above: Result Comment: Fausto CHAUDHARY Performed By: #### 2 [id number] ####[facility] [address] [place] [address] Glucose [Mass/Vol] 130 mg/dL High 55-99 [facility] Comment on above: Result Comment: Fausto CHAUDHARY Performed By: #### 2 [id number] ####[facility] [address] [place] [address] Glucose [Mass/Vol] 189 mg/dL High 55-99 [facility] Comment on above: Result Comment: Fausto CHAUDHARY Performed By: #### 2 [id number] ####[facility] [address] [place] [address] Discharge Note-Nursingon Discharge Note-Nursing Normal Fi [facility] Inpatient Clinical Summaryon 12-24-2022 Inpatient Clinical Summary Normal [facility] Inpatient Patient Summaryon 12-24-2022 Inpatient Patient Summary Normal [facility] Insurance Correspondence Off iceon 12-24-2022 Insurance Correspondence Office [id number]#1.00CD:127 Normal [facility] Interdisciplinary Note - Hardeep e Manageron 12-24-2022 Interdisciplinary Note - Clinical Biostatistician Normal [facility] Comment on above: Result Comment: Elec tronically Signed By: Radha Prabhakar\.br\Date and Time Signed: 12/24/22 15:54 EDT Progress Note-Physicianon Progress Note-Physician Normal F [facility] Comment on above: Result Comment: Elec tronically Signed By: FALLON BANKS, Soni\.br\Date and Time Signed: 12/24/22 15:29 EDT Auto Diffon 12-23-2022 Basophils/100 WBC (Bld) 0.5 % Normal 0.0-2.0 F [facility] Comment on above: Order Comment: Order Added by Discern Expert. Performed By: #### 2 639851, 38773933, 7184279, 3571676, 5357933, 7359640 ####[facility] [address] [place] [address] Basophils/Leukocytes Auto (Bld) [Pure # fraction] 0.0 E9/L Normal 0.0-0.2 [facility] Comment on above: Order Comment: Order Added by Discern Expert. Performed By: #### 2 343536, 73198733, 9982396, 8221084, 8402427, 9266259 ####[facility] [address] [place] [address] Eosinophils/100 WBC (Bld) 5.0 % Normal 0.0-8.0 [facility] Comment on above: Order Comment: Order Added by Discern Expert. Performed By: #### 2 464846, 36906271, 7183864, 1914347, 9605094, 6285541 ####[facility] [address] [place] [address] Eosinophils/Leukocytes Auto (Bld) [Pure # fraction] 0.3 E9/L Normal 0.0-0.5 [facility] Comment on above: Order Comment: Order Added by Discern Expert. Performed By: #### 2 892273, 06797267, 6107812, 9141825, 7455082, 9800508 ####[facility] [address] [place] [address] Lymphocytes/100 WBC (Bld) 23.3 % Normal 14.0-50.0 [facility] Comment on above: Order Comment: Order Added by Discern Expert. Performed By: #### 2 197654, 80525940, 1811648, 5350593, 5676087, 1837758 ####[facility] [address] [place] [address] Lymphocytes/Leukocytes Auto (Bld) [Pure # fraction] 1.5 E9/L Normal 1.0-4.0 [facility] Comment on above: Order Comment: Order Added by Katherine Expert. Performed By: #### 2 219084, 55647301, 7034558, 5659638, 1214299, 6596928 ####[facility] [address] [place] [address] Monocytes/100 WBC (Bld) 14.2 % High 4.0-14.0 [facility] Comment on above: Order Comment: Order Added by Katherine Expert. Performed By: #### 2 662860, 86277790, 8953292, 2114777, 4771307, 4047176 ####[facility] [address] [place] [address] Monocytes/Leukocytes Auto (Bld) [Pure # fraction] 0.9 E9/L Normal 0.2-1.0 [facility] Comment on above: Order Comment: Order Added by Katherine Expert. Performed By: #### 2 864407, 01313338, 6700465, 0125333, 8553775, 6210074 ####[facility] [address] [place] [address] Neutrophils/100 WBC (Bld) 57.0 % Normal 36.0-75.0 [facility] Comment on above: Order Comment: Order Added by Discern Expert. Performed By: #### 2 540128, 51305520, 3250617, 2583593, 6906666, 7498938 ####[facility] [address] [place] [address] Neutrophils/Leukocytes Auto (Bld) [Pure # fraction] 3.6 E9/L Normal 2.0-7.5 [facility] Comment on above: Order Comment: Order Added by Discern Expert. Performed By: #### 2 479559, 19296200, 5312388, 8421512, 3299431, 2544586 ####[address] [place] [address] BUNon 12-23-2022 Urea nitrogen [Mass/Vol] 15 mg/dL Normal 5-21 [facility] Comment on above: Performed By: #### 2 274855, 29470242, 2087736, 9198064, 3103809, 8704883 ####[address] [address] C [place] 12-23-2022 Wound Culture Normal [facility] Comment on above: Performed By: #### 2 218630 ####[place] Wound Culture Normal [facility] Comment on above: Performed By: #### 2 768782 ####[address] [address] CBC w/ Auto Diffon Erythrocyte distribution width (RBC) [Ratio] 17.4 % High 10.9-14.2 [facility] Comment on above: Performed By: #### 2 505761, 27983743, 5383913, 4241531, 5548066, 8717933 ####[address] [place] [address] Hematocrit (Bld) [Volume fraction] 21.5 % Low 34.0-46.0 [facility] Comment on above: Performed By: #### 2 552316, 41171215, 7846651, 6307808, 5457344, 2528095 ####[facility] [address] [place] [address] Hemoglobin (Bld) [Mass/Vol] 7.1 g/dL Low 12.0-16.0 [facility] Comment on above: Performed By: #### 2 243710, 60702112, 6890657, 5344427, 5489585, 4478833 ####[address] [address] MCH (RBC) [Entitic mass] 28.2 pg Normal 27.0-34.0 [facility] Comment on above: Performed By: #### 2 279347, 28151562, 0829865, 6452099, 7659023, 8892677 ####[address] [address] MCHC (RBC) [Mass/Vol] 32.9 g/dL Normal 31.4-36.0 [facility] Comment on above: Performed By: #### 2 799011, 33520836, 1747720, 3235062, 9868809, 0833284 ####[address] [address] MCV (RBC) [Entitic vol] 85.7 fL Normal 80.0-100.0 F [facility] Comment on above: Performed By: #### 2 581618, 72032315, 2354895, 4223759, 5132434, 3424914 ####[address] [place] [address] Platelet mean volume (Bld) [Entitic vol] 7.7 fL Normal 6.4-10.8 [facility] Comment on above: Performed By: #### 2 226239, 21963217, 7823047, 4771704, 3853970, 7011812 ####[address] [place] [address] Platelets (Bld) [#/Vol] 316.0 E9/L Normal 150.0-500.0 [facility] Comment on above: Performed By: #### 2 401994, 62846428, 4623573, 5655476, 0776581, 1415676 ####[facility] [address] [place] [address] RBC (Bld) [#/Vol] 2.5 E12/L Low 4.3-5.9 [facility] Comment on above: Performed By: #### 2 137320, 81289800, 8380525, 3782249, 8214064, 9282158 ####[facility] [address] [place] [address] WBC corrected for nucl RBC Auto (Bld) [#/Vol] 6.3 E9/L Normal 4.0-11.0 [facility] Comment on above: Performed By: #### 2 706589, 73344285, 4447425, 1902523, 4636511, 6385453 ####[facility] [address] [place] [address] CHEMISTRYOrdered By: SYSTEM SYSTEM on 12-23-2022 Anion gap [Moles/Vol] 1 mmol/L Low 6 - 16 mEq/L F [facility] Remisol Chloride [Moles/Vol] 119 mmol/L High 101 - 1 11 mmol/L [facility] Remisol CO2 [Moles/Vol] 25 mmol/L Normal 21 - 31 mmol/L [facility] Remisol Creatinine [Mass/Vol] 0.7 mg/dL Normal 0.5 - 1.3 mg/dL [facility] Remisol GFR/1.73 sq M.predicted among non-blacks MDRD (S/P/Bld) [Vol rate/Area] 94 mL/min/1.73 m2 Normal >=59mL/min/1.7 3 m2 [facility] Chem S Comment on above: Interpretive Data: C hronic kidney disease could be indicated at eGFR's of less than 60 mL/min/1.73m2. Kidney failure is indicated at less than 15 mL/min/1.73m2. Potassium [Moles/Vol] 4.0 mmol/L Normal 3.5 - 5.3 mmol/L [facility] Remisol Sodium [Moles/Vol] 141 mmol/L Normal 135 - 145 mmol/L [facility] Remisol Urea nitrogen [Mass/Vol] 15 mg/dL Normal 5 - 21 mg/dL [facility] Remisol Capillary Glucose POCon 11-30 Glucose [Mass/Vol] 118 mg/dL High 55-99 [facility] Comment on above: Result Comment: Fausto CHAUDHARY Performed By: #### 2 [id number] ####[facility] [address] [place] [address] Glucose [Mass/Vol] 105 mg/dL High 55-99 [facility] Comment on above: Result Comment: Fausto CHAUDHARY Performed By: #### 2 46318392 ####[facility] [address] [place] [address] Glucose [Mass/Vol] 104 mg/dL High 55-99 [facility] Comment on above: Result Comment: Fausto CHAUDHARY Performed By: #### 2 30957012 ####[facility] [address] [place] [address] Glucose [Mass/Vol] 123 mg/dL High 55-99 [facility] Comment on above: Result Comment: Lucille ronak Meter Performed By: #### 2 64743446 ####[facility] [address] [place] [address] Consent for Anesthesiaon Consent for Anesthesia ..121.88. [id number]#1.00CD:127 Normal [facility] Consent for Blood Transfusio non 12-23-2022 Consent for Blood Transfusion ..121. [id number]#1.00CD:127 Normal [facility] Consent for Procedure/Surger yon 12-23-2022 Consent for Procedure/Surgery 170..121. [id number]#1.00CD:127 Normal [facility] Consent for Treatmenton 11-30 Consent for Treatment 170..121. [id number]#1.00CD:127 Normal [facility] Creatinineon 12-23-2022 Creatinine [Mass/Vol] 0.7 mg/dL Normal 0.5-1.3 [facility] Comment on above: Performed By: #### 2 322290, 02404279, 8352433, 1609734, 9324902, 9184151 ####[facility] [address] [place] [address] HEMATOLOGYOrdered By: SYSTEM SYSTEM on 12-23-2022 Basophils/100 [...] Hardeep e Manageron 12-23-2022 Interdisciplinary Note - Clinical Biostatistician Normal [facility] Comment on above: Result Comment: Elec tronically Signed By: Kirstin Meyer.deng\Date and Time Signed: 12/23/22 14:46 EDT IntraOperative Documentson 0 12-23-2022 IntraOperative Documents [id number]#1.00CD:127 Normal [facility] IntraOperative Documents [id number]#1.00CD:127 Normal [facility] Lyteson 12-23-2022 Anion gap [Moles/Vol] 1 mmol/L Low 6-16 [facility] Comment on above: Performed By: #### 2 237094, 50242736, 0894574, 2433570, 7576151, 2838872 ####[facility] [address] [place] [address] Chloride [Moles/Vol] 119 mmol/L High 101-[address] [facility] Comment on above: Performed By: #### 2 464163, 85489198, 8008901, 4425710, 2858972, 2467189 ####[facility] [address] [place] [address] CO2 [Moles/Vol] 25 mmol/L Normal 21-31 [facility] Comment on above: Performed By: #### 2 925818, 03858811, 2405332, 3843737, 1682914, 9086943 ####[facility] [address] [place] [address] Potassium [Moles/Vol] 4.0 mmol/L Normal 3.5-5.3 [facility] Comment on above: Performed By: #### 2 955896, 39014964, 5637891, 4495095, 7864913, 6174638 ####[facility] [address] [place] [address] Sodium [Moles/Vol] 141 mmol/L Normal 135-145 [facility] Comment on above: Performed By: #### 2 995133, 50605122, 5813388, 3942876, 2539798, 9230956 ####[facility] [address] [place] [address] Main OR Intraoperative Recor don 12-23-2022 Main OR Intraoperative Record Normal [facility] Progress Note-Physicianon Progress Note-Physician Normal F [facility] Comment on above: Result Comment: Elec tronically Signed By: Joaquim Noe DO\.br\Date and Time Signed: 12/23/22 19:04 EDT Progress Note-Physician Normal F [facility] Comment on above: Result Comment: Elec tronically Signed By: FALLON BANKS, Soni\.br\Date and Time Signed: 12/23/22 10:01 EDT XR Chest Single Viewon 12-23 XR Chest Single View Normal [facility] eGFRon 12-23-2022 GFR/1.73 sq M.predicted among non-blacks MDRD (S/P/Bld) [Vol rate/Area] 94 mL/min/1.73 m2 Normal >=59 [facility] Comment on above: Order Comment: Order added by Discern Expert. Result Comment: Web Site Designer marquez kidney disease could be indicated at eGFR's of less than 60 mL/min/1.73m2. Kidney failure is indicated at less than 15 mL/min/1.73m2. Performed By: #### 2 839034, 13160878, 4012671, 1467932, 2345242, 8131503 ####[facility] [address] [place] [address] Auto Diffon 12-22-2022 Basophils/100 WBC (Bld) 0.5 % Normal 0.0-2.0 [facility] Comment on above: Order Comment: Order Added by Discern Expert. Performed By: #### 2 794578, 0016753, 90706426, 6242874, 5549417, 7766522 ####[facility] [address] [place] [address] Basophils/Leukocytes Auto (Bld) [Pure # fraction] 0.0 E9/L Normal 0.0-0.2 [facility] Comment on above: Order Comment: Order Added by Discern Expert. Performed By: #### 2 276144, 0688113, 91112715, 3961486, 6134537, 1671545 ####[facility] [address] [place] [address] Eosinophils/100 WBC (Bld) 1.1 % Normal 0.0-8.0 [facility] Comment on above: Order Comment: Order Added by Discern Expert. Performed By: #### 2 802296, 4500123, 32894608, 0679755, 2837409, 3865471 ####[facility] [address] [place] [address] Eosinophils/Leukocytes Auto (Bld) [Pure # fraction] 0.1 E9/L Normal 0.0-0.5 [facility] Comment on above: Order Comment: Order Added by Discern Expert. Performed By: #### 2 303386, 8615967, 96570085, 9049394, 2976575, 5739391 ####[facility] [address] [place] [address] Lymphocytes/100 WBC (Bld) 20.4 % Normal 14.0-50.0 [facility] Comment on above: Order Comment: Order Added by Discern Expert. Performed By: #### 2 532104, 1476124, 72777677, 6698347, 3541609, 2205693 ####[address] [place] [address] Lymphocytes/Leukocytes Auto (Bld) [Pure # fraction] 1.5 E9/L Normal 1.0-4.0 [facility] Comment on above: Order Comment: Order Added by Discern Expert. Performed By: #### 2 735232, 1610879, 50602736, 2532434, 7067889, 8917210 ####[address] [address] Monocytes/100 WBC (Bld) 11.4 % Normal 4.0-14.0 [facility] Comment on above: Order Comment: Order Added by Discern Expert. Performed By: #### 2 690506, 5505167, 18163297, 8748535, 2473120, 8089462 ####[address] [address] Monocytes/Leukocytes Auto (Bld) [Pure # fraction] 0.9 E9/L Normal 0.2-1.0 [facility] Comment on above: Order Comment: Order Added by Discern Expert. Performed By: #### 2 497034, 2072315, 11174997, 4688630, 6020265, 7227594 ####[address] [place] [address] Neutrophils/100 WBC (Bld) 66.6 % Normal 36.0-75.0 [facility] Comment on above: Order Comment: Order Added by Discern Expert. Performed By: #### 2 011590, 4904603, 57128877, 1152211, 6009512, 3021241 ####[address] [place] [address] Neutrophils/Leukocytes Auto (Bld) [Pure # fraction] 5.0 E9/L Normal 2.0-7.5 [facility] Comment on above: Order Comment: Order Added by Discern Expert. Performed By: #### 2 507321, 6751132, 30379307, 3738115, 7572800, 3336857 ####[facility] [address] [place] [address] BUNon 12-22-2022 Urea nitrogen [Mass/Vol] 21 mg/dL Normal 5-21 [facility] Comment on above: Performed By: #### 2 387474, 3733232, 40084475, 0378503, 1488293, 1777398 ####[facility] [address] [place] [address] CBC w/ Auto Diffon Erythrocyte distribution width (RBC) [Ratio] 17.5 % High 10.9-14.2 [facility] Comment on above: Performed By: #### 2 955892, 9855318, 02321491, 4097104, 3703048, 7278944 ####[facility] [address] [place] [address] Hematocrit (Bld) [Volume fraction] 21.8 % Low 34.0-46.0 [facility] Comment on above: Performed By: #### 2 495824, 6078194, 60204462, 5428185, 5045701, 0682656 ####[facility] [address] [place] [address] Hemoglobin (Bld) [Mass/Vol] 7.2 g/dL Low 12.0-16.0 [facility] Comment on above: Performed By: #### 2 703544, 1058119, 35147179, 3847174, 7737588, 5018869 ####[facility] [address] [place] [address] MCH (RBC) [Entitic mass] 28.2 pg Normal 27.0-34.0 [facility] Comment on above: Performed By: #### 2 520926, 4158253, 97019366, 4699603, 3142075, 9571525 ####[place] [address] [place] [id number] MCHC (RBC) [Mass/Vol] 32.9 g/dL Normal 31.4-36.0 [facility] Comment on above: Performed By: #### 2 306364, 8094842, 79740547, 4151608, 2893410, 7942498 ####[address] [address] MCV (RBC) [Entitic vol] 85.7 fL Normal 80.0-100.0 F [facility] Comment on above: Performed By: #### 2 999011, 0396291, 40342231, 6136555, 1653552, 8058858 ####[address] [address] Platelet mean volume (Bld) [Entitic vol] 7.8 fL Normal 6.4-10.8 [facility] Comment on above: Performed By: #### 2 982304, 8344749, 18565114, 6249670, 8794936, 6337591 ####[address] [address] Platelets (Bld) [#/Vol] 337.0 E9/L Normal 150.0-500.0 [facility] Comment on above: Performed By: #### 2 108441, 5518425, 77417497, 1979467, 4310828, 3323466 ####[address] [address] RBC (Bld) [#/Vol] 2.5 E12/L Low 4.3-5.9 [facility] Comment on above: Performed By: #### 2 488720, 6568683, 37666682, 0863971, 6546964, 3215833 ####[address] [address] WBC corrected for nucl RBC Auto (Bld) [#/Vol] 7.4 E9/L Normal 4.0-11.0 [facility] Comment on above: Performed By: #### 2 079682, 4094114, 41123190, 1113504, 5937633, 4284432 ####[facility] [address] [place] [address] CHEMISTRYOrdered By: SYSTEM SYSTEM on 12-22-2022 Anion gap [Moles/Vol] 5 mmol/L Low 6 - 16 mEq/L [place] [facility] [place] [place]isol Chloride [Moles/Vol] 115 mmol/L High 101 - 1 11 mmol/L [facility] Remisol CO2 [Moles/Vol] 23 mmol/L Normal 21 - 31 mmol/L [facility] Remisol Creatinine [Mass/Vol] 0.9 mg/dL Normal 0.5 - 1.3 mg/dL [facility] Remisol GFR/1.73 sq M.predicted among non-blacks MDRD (S/P/Bld) [Vol rate/Area] 70 mL/min/1.73 m2 Normal >=59mL/min/1.7 3 m2 [facility] Chem S Comment on above: Interpretive Data: C hronic kidney disease could be indicated at eGFR's of less than 60 mL/min/1.73m2. Kidney failure is indicated at less than 15 mL/min/1.73m2. Potassium [Moles/Vol] 3.7 mmol/L Normal 3.5 - 5.3 mmol/L [facility] Remisol Sodium [Moles/Vol] 139 mmol/L Normal 135 - 145 mmol/L [facility] Remisol Urea nitrogen [Mass/Vol] 21 mg/dL Normal 5 - 21 mg/dL [facility] Remisol Capillary Glucose POCon 11-30 Glucose [Mass/Vol] 124 mg/dL High 55-99 [facility] Comment on above: Result Comment: Fausto CHAUDHARY Performed By: #### 2 [id number] ####[facility] [address] [place] [address] Glucose [Mass/Vol] 126 mg/dL High 55-99 [facility] Comment on above: Result Comment: Fausto CHAUDHARY Performed By: #### 2 52100444 ####[facility] [address] [place] [address] Glucose [Mass/Vol] 153 mg/dL High 55-99 [facility] Comment on above: Performed By: #### 2 08564262 ####[facility] [address] [place] [address] Glucose [Mass/Vol] 294 mg/dL High 55-99 [facility] Comment on above: Result Comment: Fausto rubi RN/MD Performed By: #### 2 68521144 ####[facility] [address] [place] [address] Creatinineon 12-22-2022 Creatinine [Mass/Vol] 0.9 mg/dL Normal 0.5-1.3 [facility] Comment on above: Performed By: #### 2 615674, 2227816, 73904975, 8084010, 2305356, 9625585 ####[facility] [address] [place] [address] HEMATOLOGYOrdered By: SYSTEM SYSTEM on 12-22-2022 Basophils/100 [...] 7.4 E9/L Normal 4.0 - 11.0 E9/L [facility] HemeAutoSS Lyteson 12-22-2022 Anion gap [Moles/Vol] 5 mmol/L Low 6-16 [facility] Comment on above: Performed By: #### 2 327895, 9382179, 38595350, 2132502, 4410643, 5365229 ####[facility] [address] [place] [address] Chloride [Moles/Vol] 115 mmol/L High 101-[address] [facility] Comment on above: Performed By: #### 2 139953, 2936658, 23678195, 6762808, 5404149, 4229063 ####[facility] [address] [place] [address] CO2 [Moles/Vol] 23 mmol/L Normal 21-31 [facility] Comment on above: Performed By: #### 2 443166, 7530446, 24021816, 0886140, 1119534, 7448033 ####[facility] [address] [place] [address] Potassium [Moles/Vol] 3.7 mmol/L Normal 3.5-5.3 [facility] Comment on above: Performed By: #### 2 572883, 9825324, 30346931, 2154645, 8333023, 9359468 ####[facility] [address] [place] [address] Sodium [Moles/Vol] 139 mmol/L Normal 135-145 [facility] Comment on above: Performed By: #### 2 700438, 2896303, 52045995, 4106127, 2407713, 7434393 ####[facility] [address] [place] [address] Progress Note-Physicianon Progress Note-Physician Normal [facility] Comment on above: Result Comment: Elec tronically Signed By: Joaquim Noe DO\.br\Date and Time Signed: 12/22/22 20:14 EDT Progress Note-Physician Normal F [facility] Comment on above: Result Comment: Elec tronically Signed By: Cordell Grossman DO\.br\Date and Time Signed: 12/22/22 15:53 EDT eGFRon 12-22-2022 GFR/1.73 sq M.predicted among non-blacks MDRD (S/P/Bld) [Vol rate/Area] 70 mL/min/1.73 m2 Normal >=59 [facility] Comment on above: Order Comment: Order added by Discern Expert. Result Comment: Web Site Designer marquez kidney disease could be indicated at eGFR's of less than 60 mL/min/1.73m2. Kidney failure is indicated at less than 15 mL/min/1.73m2. Performed By: #### 2 187221, 9533705, 67883900, 7461780, 1671368, 0342092 ####[facility] [address] [place] [address] Auto Diffon 12-21-2022 Basophils/100 WBC (Bld) 0.1 % Normal 0.0-2.0 [facility] Comment on above: Order Comment: Order Added by Discern Expert. Performed By: #### 2 221420, 81916755, 5906975, 8946336, 3997200, 1820277 ####[place] [address] [place] [address] Basophils/Leukocytes Auto (Bld) [Pure # fraction] 0.0 E9/L Normal 0.0-0.2 [facility] Comment on above: Order Comment: Order Added by Discern Expert. Performed By: #### 2 039551, 12459635, 8714881, 3805637, 6795610, 5707232 ####[place] [address] [place] [address] Eosinophils/100 WBC (Bld) 0.0 % Normal 0.0-8.0 [facility] Comment on above: Order Comment: Order Added by Discern Expert. Performed By: #### 2 041830, 39828787, 8616368, 0623960, 9776802, 4267538 ####[place] [address] [place] [address] Eosinophils/Leukocytes Auto (Bld) [Pure # fraction] 0.0 E9/L Normal 0.0-0.5 [facility] Comment on above: Order Comment: Order Added by Discern Expert. Performed By: #### 2 204378, 52755204, 0070829, 3202409, 8702544, 7889107 ####[place] [address] [place] [address] Lymphocytes/100 WBC (Bld) 6.5 % Low 14.0-50.0 [facility] Comment on above: Order Comment: Order Added by Discern Expert. Performed By: #### 2 243014, 73592199, 2227747, 6096230, 7058802, 0974947 ####[place] [place] [address] Lymphocytes/Leukocytes Auto (Bld) [Pure # fraction] 0.4 E9/L Low 1.0-4.0 [facility] Comment on above: Order Comment: Order Added by Discern Expert. Performed By: #### 2 571361, 04534678, 1479864, 3993649, 3886621, 1609695 ####[place] [address] [place] [address] Monocytes/100 WBC (Bld) 8.7 % Normal 4.0-14.0 [facility] Comment on above: Order Comment: Order Added by Katherine Expert. Performed By: #### 2 664821, 75027244, 3740088, 7550020, 7163252, 8820247 ####[address] [address] Monocytes/Leukocytes Auto (Bld) [Pure # fraction] 0.6 E9/L Normal 0.2-1.0 [facility] Comment on above: Order Comment: Order Added by Katherine Expert. Performed By: #### 2 320756, 91238126, 6980165, 6951874, 8884175, 8715496 ####[address] [address] Neutrophils/100 WBC (Bld) 84.7 % High 36.0-75.0 [facility] Comment on above: Order Comment: Order Added by Katherine Expert. Performed By: #### 2 800583, 17605531, 5568379, 5935957, 6091706, 6518957 ####[place] [address] [place] [address] Neutrophils/Leukocytes Auto (Bld) [Pure # fraction] 5.8 E9/L Normal 2.0-7.5 [facility] Comment on above: Order Comment: Order Added by Katherine Expert. Performed By: #### 2 120044, 46445172, 1367309, 3868634, 7697285, 2849648 ####[facility] [address] [place] [address] BUNon 12-21-2022 Urea nitrogen [Mass/Vol] 22 mg/dL High 5-21 [facility] Comment on above: Performed By: #### 2 226966, 72823056, 2973513, 4097420, 6261984, 1059095 ####[facility] [address] [place] [address] CBC w/ Auto Diffon Erythrocyte distribution width (RBC) [Ratio] 17.9 % High 10.9-14.2 [facility] Comment on above: Performed By: #### 2 956065, 75030173, 9950363, 6623521, 8416307, 5941035 ####[facility] [address] [place] [address] Hematocrit (Bld) [Volume fraction] 23.9 % Low 34.0-46.0 [facility] Comment on above: Performed By: #### 2 513283, 85559731, 2498923, 3395346, 2048846, 7551235 ####[facility] [address] [place] [address] Hemoglobin (Bld) [Mass/Vol] 7.7 g/dL Low 12.0-16.0 [facility] Comment on above: Performed By: #### 2 808549, 79224648, 1051101, 3623088, 7051592, 7640644 ####[facility] [address] [place] [address] MCH (RBC) [Entitic mass] 28.2 pg Normal 27.0-34.0 [facility] Comment on above: Performed By: #### 2 846272, 18712328, 8725934, 2865102, 2309150, 3700163 ####[facility] [address] [place] [address] MCHC (RBC) [Mass/Vol] 32.3 g/dL Normal 31.4-36.0 [facility] Comment on above: Performed By: #### 2 039115, 75251941, 4106077, 7171927, 5632497, 1905907 ####[facility] [address] [place] [address] MCV (RBC) [Entitic vol] 87.1 fL Normal 80.0-100.0 F [facility] Comment on above: Performed By: #### 2 685100, 88927143, 4100653, 1288679, 0069728, 9471588 ####[place] [address] [place] [address] Platelet mean volume (Bld) [Entitic vol] 8.1 fL Normal 6.4-10.8 [facility] Comment on above: Performed By: #### 2 862430, 74257498, 5946506, 4384609, 2435592, 2190409 ####[address] [address] Platelets (Bld) [#/Vol] 320.0 E9/L Normal 150.0-500.0 [facility] Comment on above: Performed By: #### 2 732594, 08691752, 6409729, 8752635, 9291750, 2764320 ####[address] [address] RBC (Bld) [#/Vol] 2.7 E12/L Low 4.3-5.9 [facility] Comment on above: Performed By: #### 2 010636, 87218083, 7469668, 3589466, 4707436, 6041149 ####[place] [address] [place] [address] WBC corrected for nucl RBC Auto (Bld) [#/Vol] 6.8 E9/L Normal 4.0-11.0 [facility] Comment on above: Performed By: #### 2 212068, 39637252, 8309310, 8145694, 4224285, 1227347 ####[facility] [address] [place] [address] CHEMISTRYOrdered By: SYSTEM SYSTEM on 12-21-2022 Anion gap [Moles/Vol] 7 mmol/L Normal 6 - 16 mEq/L [facility] [place] Remisol Chloride [Moles/Vol] 112 mmol/L High 101 - 1 11 mmol/L [facility] Remisol CO2 [Moles/Vol] 24 mmol/L Normal 21 - 31 mmol/L [facility] Remisol Creatinine [Mass/Vol] 1.1 mg/dL Normal 0.5 - 1.3 mg/dL [facility] Remisol GFR/1.73 sq M.predicted among non-blacks MDRD (S/P/Bld) [Vol rate/Area] 55 mL/min/1.73 m2 Low >=59mL/min/1.7 3 m2 [facility] Chem S Comment on above: Interpretive Data: C hronic kidney disease could be indicated at eGFR's of less than 60 mL/min/1.73m2. Kidney failure is indicated at less than 15 mL/min/1.73m2. Potassium [Moles/Vol] 5.2 mmol/L Normal 3.5 - 5.3 mmol/L [facility] Remisol Sodium [Moles/Vol] 138 mmol/L Normal 135 - 145 mmol/L [facility] Remisol Urea nitrogen [Mass/Vol] 22 mg/dL High 5 - 21 mg/dL [facility] Remisol Capillary Glucose POCon 11-30 Glucose [Mass/Vol] 288 mg/dL High 55-99 [facility] Comment on above: Performed By: #### 2 [id number] ####[facility] [address] [place] [address] Glucose [Mass/Vol] 323 mg/dL High 55-99 [facility] Comment on above: Result Comment: Fausto rubi RN/ Performed By: #### 2 89432770 ####[facility] [address] [place] [address] Glucose [Mass/Vol] 353 mg/dL High 55-99 [facility] Comment on above: Performed By: #### 2 64193008 ####[facility] [address] [place] [address] Glucose [Mass/Vol] 281 mg/dL High 55-99 [facility] Comment on above: Result Comment: Fausto rubi RN/ Performed By: #### 2 68034851 ####[facility] [address] [place] [address] Creatinineon 12-21-2022 Creatinine [Mass/Vol] 1.1 mg/dL Normal 0.5-1.3 [facility] Comment on above: Performed By: #### 2 235043, 76923938, 4931545, 4122286, 6650724, 5567025 ####[facility] [address] [place] [address] HEMATOLOGYOrdered By: SYSTEM SYSTEM on 12-21-2022 Basophils/100 [...] 23.9 % Low 34.0 - 46.0 % [facility] HemeAutoSS Hemoglobin (Bld) [Mass/Vol] 7.7 g/dL Low [...] 8.1 fL Normal 6.4 - 10.8 fL [facility] HemeAutoSS Platelets (Bld) [#/Vol] 320.0 E9/L Normal 150. 0 - 500.0 E9/L [facility] HemeAutoSS RBC (Bld) [#/Vol] 2.7 E12/L Low 4.3 - 5.9 E12/L [facility] HemeAutoSS WBC corrected for nucl RBC Auto (Bld) [#/Vol] 6.8 E9/L Normal 4.0 - 11.0 E9/L [facility] HemeAutoSS Interdisciplinary Note - Timo n 12-21-2022 Interdisciplinary Note - OT Normal [facility] Interdisciplinary Note - PTo n 12-21-2022 Interdisciplinary Note - PT Normal [facility] Lyteson 12-21-2022 Anion gap [Moles/Vol] 7 mmol/L Normal 6-16 [facility] Comment on above: Performed By: #### 2 056111, 74375099, 6482843, 6319359, 5556267, 3484462 ####[facility] [address] [place] [address] Chloride [Moles/Vol] 112 mmol/L High 101-[address] [facility] Comment on above: Performed By: #### 2 163388, 10708998, 7628314, 4546259, 6570991, 2296225 ####[facility] [address] [place] [address] CO2 [Moles/Vol] 24 mmol/L Normal 21-31 [facility] Comment on above: Performed By: #### 2 050786, 57067463, 9717913, 0979587, 4008618, 7633397 ####[facility] [address] [place] [address] Potassium [Moles/Vol] 5.2 mmol/L Normal 3.5-5.3 [facility] Comment on above: Performed By: #### 2 383381, 22762529, 2629936, 2005993, 4214209, 0511308 ####[facility] [address] [place] [address] Sodium [Moles/Vol] 138 mmol/L Normal 135-145 [facility] Comment on above: Performed By: #### 2 598275, 11288784, 7448899, 6847464, 9348652, 3480430 ####[facility] [address] [place] [address] Operative Reporton Operative Report Normal [facility] Comment on above: Result Comment: Elec tronically Signed By: Joaquim Noe DO\.br\Date and Time Signed: 12/21/22 14:02 EDT Progress Note-Physicianon Progress Note-Physician Normal [facility] Comment on above: Result Comment: Elec tronically Signed By: MD Juan, Nomi Lehman\.br\Date and Time Signed: 12/21/22 16:59 EDT Progress Note-Physician Normal [facility] Comment on above: Result Comment: Elec tronically Signed By: MD Martinez Ahmad F\.br\Date and Time Signed: 12/21/22 16:52 EDT Progress Note-Physician Normal [facility] Comment on above: Result Comment: Elec tronically Signed By: Joaquim Noe DO.br\Date and Time Signed: 12/21/22 14:41 EDT Progress Note-Physician Normal F [facility] Comment on above: Result Comment: Elec tronically Signed By: Cordell Grossman DO\Date and Time Signed: 12/21/22 11:13 EDT eGFRon 12-21-2022 GFR/1.73 sq M.predicted among non-blacks MDRD (S/P/Bld) [Vol rate/Area] 55 mL/min/1.73 m2 Low >=59 [facility] Comment on above: Order Comment: Order added by Discern Expert. Result Comment: Web Site Designer marquez kidney disease could be indicated at eGFR's of less than 60 mL/min/1.73m2. Kidney failure is indicated at less than 15 mL/min/1.73m2. Performed By: #### 2 427519, 22746050, 3433764, 6819665, 0466975, 2181183 ####[facility] [address] [place] [address] .Manual Abson 12-20-2022 Basophils/Leukocytes Manual cnt (Bld) [Pure # fraction] 0.0 E9/L Normal 0.0-0.2 [facility] Comment on above: Performed By: #### 2 537726, 8791121, 47168114, 3001126, 58322139, 11242569, 6950798 ####[facility] [address] [place] [address] Eosinophils/Leukocytes Manual cnt (Bld) [Pure # fraction] 0.1 E9/L Normal 0.0-0.5 [facility] Comment on above: Performed By: #### 2 324048, 4788222, 07788060, 4519163, 88027310, 08046427, 7685997 ####[facility] [address] [place] [address] Lymphocytes/Leukocytes Manual cnt (Bld) [Pure # fraction] 1.0 E9/L Normal 1.0-4.0 [facility] Comment on above: Performed By: #### 2 723438, 5892865, 46961154, 0267023, 92998038, 27688640, 6287038 ####[address] [place] [address] Monocytes/Leukocytes Manual cnt (Bld) [Pure # fraction] 0.5 E9/L Normal 0.2-1.0 [facility] Comment on above: Performed By: #### 2 499152, 7180237, 01613223, 6035175, 97242344, 81728912, 1839298 ####[address] [place] [address] Neutrophils/Leukocytes Auto (Bld) [Pure # fraction] 4.2 E9/L Normal 2.0-7.5 [facility] Comment on above: Performed By: #### 2 928349, 9419679, 61559550, 7206189, 89707942, 10315821, 3866269 ####[address] [address] ABO/Rhon 12-20-2022 ABO/Rh Positive Invalid Interpretation Code [facility] Comment on above: Performed By: #### 1 4463688, 27440285, 31876755, 6176421 ####[address] [address] ABO/Rh History Checkon 12-20 ABO/Rh History Check Verified Hx Blood Type Normal [facility] Comment on above: Performed By: #### 1 7346922, 86987637, 02555604, 7349161 ####[address] [address] ABSCon 12-20-2022 ABSC Gel Interp Negative Normal [facility] Comment on above: Performed By: #### 1 3612150, 18018575, 66260315, 5779607 ####[address] [place] [address] Auto Diffon 12-20-2022 Basophils/100 WBC (Bld) 0.1 % Normal 0.0-2.0 [facility] Comment on above: Order Comment: Order Added by Discern Expert. Performed By: #### 2 486051, 0393395, 0396879, 82369196, 3628563 ####[address] [place] [address] Basophils/Leukocytes Auto (Bld) [Pure # fraction] 0.0 E9/L Normal 0.0-0.2 [facility] Comment on above: Order Comment: Order Added by Katherine Expert. Performed By: #### 2 103316, 0354617, 2490349, 67458942, 2076663 ####[address] [address] Eosinophils/100 WBC (Bld) 0.2 % Normal 0.0-8.0 [facility] Comment on above: Order Comment: Order Added by Katherine Expert. Performed By: #### 2 787308, 0107524, 7879557, 73480353, 9943316 ####[address] [address] Eosinophils/Leukocytes Auto (Bld) [Pure # fraction] 0.0 E9/L Normal 0.0-0.5 [facility] Comment on above: Order Comment: Order Added by Katherine Expert. Performed By: #### 2 033602, 3689314, 9083555, 93615498, 8172624 ####[address] [address] Lymphocytes/100 WBC (Bld) 3.8 % Low 14.0-50.0 [facility] Comment on above: Order Comment: Order Added by Katherine Expert. Performed By: #### 2 013515, 8693855, 3508611, 32734601, 3066910 ####[address] [address] Lymphocytes/Leukocytes Auto (Bld) [Pure # fraction] 0.4 E9/L Low 1.0-4.0 [facility] Comment on above: Order Comment: Order Added by Katherine Expert. Performed By: #### 2 238214, 7172244, 0325695, 03210990, 5286326 ####[facility] [address] [place] [address] Monocytes/100 WBC (Bld) 6.3 % Normal 4.0-14.0 [facility] Comment on above: Order Comment: Order Added by Discern Expert. Performed By: #### 2 223776, 5402586, 0671136, 92125264, 0502674 ####[address] [place] [address] Monocytes/Leukocytes Auto (Bld) [Pure # fraction] 0.6 E9/L Normal 0.2-1.0 [facility] Comment on above: Order Comment: Order Added by Discern Expert. Performed By: #### 2 274190, 6689578, 4901165, 52498969, 1854802 ####[address] [place] [address] Neutrophils/100 WBC (Bld) 89.6 % High 36.0-75.0 [facility] Comment on above: Order Comment: Order Added by Discern Expert. Performed By: #### 2 804580, 5428681, 9470417, 57374462, 4147229 ####[address] [place] [address] Neutrophils/Leukocytes Auto (Bld) [Pure # fraction] 8.7 E9/L High 2.0-7.5 [facility] Comment on above: Order Comment: Order Added by Discern Expert. Performed By: #### 2 997788, 6037313, 2916405, 85901356, 2966609 ####[address] [place] [address] BLOOD BANKOrdered By: Kirstin King on 12-20-2022 ABO/Rh Interp Positive Invalid Interpretation Code [facility] BB Subsection ABSC Gel Interp Negative (12/20/22 12:15 PM) Normal [facility] BB Subsection BMPon 12-20-2022 Anion gap [Moles/Vol] 10 mmol/L Normal 6-16 [facility] Comment on above: Performed By: #### 2 276576, 1688746, 6573236, 27136226, 1578674 ####[facility] [address] [place] [address] Calcium [Mass/Vol] 8.4 mg/dL Low 8.9-11.1 [facility] Comment on above: Performed By: #### 2 515562, 5480923, 8893417, 12636790, 6307709 ####[facility] [address] [place] [address] Chloride [Moles/Vol] 109 mmol/L Normal 101-111 [facility] Comment on above: Performed By: #### 2 512420, 5849331, 1071095, 50191516, 6152340 ####[facility] [address] [place] [address] CO2 [Moles/Vol] 23 mmol/L Normal 21-31 [facility] Comment on above: Performed By: #### 2 379958, 0219183, 6967944, 77499429, 8556475 ####[facility] [address] [place] [address] Creatinine [Mass/Vol] 0.7 mg/dL Normal 0.5-1.3 [facility] Comment on above: Performed By: #### 2 078695, 9157435, 3662740, 41432101, 4822544 ####[facility] [address] [place] [facility] [place] [address] Glucose [Mass/Vol] 242 mg/dL High 55-199 [facility] Comment on above: Result Comment: If t his glucose result represents a fasting glucose, interpretation should refer to the following reference range: 55-99 mg/dL Performed By: #### 2 867978, 4127171, 1391185, 08344653, 8021648 ####[facility] [address] [place] [address] Potassium [Moles/Vol] 4.7 mmol/L Normal 3.5-5.3 [facility] Comment on above: Performed By: #### 2 257525, 5254907, 1678105, 86887411, 8339019 ####[facility] [address] [place] [address] Sodium [Moles/Vol] 137 mmol/L Normal 135-145 [facility] Comment on above: Performed By: #### 2 983178, 4398096, 9614968, 79744203, 9682607 ####[facility] [address] [place] [address] Urea nitrogen [Mass/Vol] 12 mg/dL Normal 5-21 [facility] Comment on above: Performed By: #### 2 811091, 4311740, 7834013, 79067325, 0004151 ####[facility] [address] [place] [address] Urea nitrogen/Creatinine [Mass ratio] 17 No Units Normal 10-20 [facility] Comment on above: Performed By: #### 2 241519, 1501141, 7472719, 61233541, 1929266 ####[facility] [address] [place] [address] Anion gap [Moles/Vol] 7 mmol/L Normal 6-16 [facility] Comment on above: Performed By: #### 2 261931, 7760266, 81525476, 9752750, 87470544, 47213447, 8106089 ####[facility] [address] [place] [address] Calcium [Mass/Vol] 8.4 mg/dL Low 8.9-11.1 [facility] Comment on above: Performed By: #### 2 441307, 1584314, 78109970, 8062414, 34475558, 81513173, 4711167 ####[facility] [address] [place] [address] Chloride [Moles/Vol] 112 mmol/L High 101-111 [facility] Comment on above: Performed By: #### 2 754884, 9200173, 61801294, 6711824, 20753419, 01696765, 5832049 ####[facility] [address] [place] [address] CO2 [Moles/Vol] 24 mmol/L Normal 21-31 [facility] Comment on above: Performed By: #### 2 345715, 2542181, 98866093, 6660166, 04335955, 66580067, 6253726 ####[facility] [address] [place] [address] Creatinine [Mass/Vol] 0.7 mg/dL Normal 0.5-1.3 [facility] Comment on above: Performed By: #### 2 186572, 1895565, 08973301, 2072469, 80688653, 34606798, 1827506 ####[facility] [address]fr[address] [place] [address] Glucose [Mass/Vol] 166 mg/dL Normal 55-199 [facility] Comment on above: Result Comment: If t his glucose result represents a fasting glucose, interpretation should refer to the following reference range: 55-99 mg/dL Performed By: #### 2 547175, 4245422, 67163366, 8703000, 97610443, 11358848, 2830916 ####[facility] [address] [place] [address] Potassium [Moles/Vol] 3.9 mmol/L Normal 3.5-5.3 [facility] Comment on above: Performed By: #### 2 029794, 8834938, 69790379, 8657280, 62730098, 82004267, 3585282 ####[facility] [address] [place] [address] Sodium [Moles/Vol] 139 mmol/L Normal 135-145 [facility] Comment on above: Performed By: #### 2 816097, 2293110, 10448059, 0763765, 73649139, 79970389, 3351766 ####[facility] [address] [place] [address] Urea nitrogen [Mass/Vol] 14 mg/dL Normal 5-21 [facility] Comment on above: Performed By: #### 2 158112, 7272424, 09276570, 9080250, 96643406, 98724847, 8366471 ####[facility] [address] [place] [address] Urea nitrogen/Creatinine [Mass ratio] 20 No Units Normal 10-20 [facility] Comment on above: Performed By: #### 2 353377, 0204023, 06912642, 8690873, 60542612, 40560236, 8870861 ####[facility] [address] [place] [address] Blood Bank ID#on 12-20-2022 BBID# [id number] Invalid Interpretation Code [facility] Comment on above: Performed By: #### 1 5309440, 06430337, 11025235, 4672167 ####[address] [place] [address] CBC w/ Auto Diffon 3 Erythrocyte distribution width (RBC) [Ratio] 17.7 % High 10.9-14.2 [facility] Comment on above: Performed By: #### 2 115245, 4837405, 7668940, 76618898, 0220789 ####[facility] [address] [place] [address] Hematocrit (Bld) [Volume fraction] 26.3 % Low 34.0-46.0 [facility] Comment on above: Performed By: #### 2 220186, 1326952, 6940569, 74898168, 1233289 ####[facility] [address] [place] [address] Hemoglobin (Bld) [Mass/Vol] 8.5 g/dL Low 12.0-16.0 [facility] Comment on above: Performed By: #### 2 090686, 4154811, 0437088, 71652400, 9720817 ####[facility] [address] [place] [address] MCH (RBC) [Entitic mass] 28.1 pg Normal 27.0-34.0 [facility] Comment on above: Performed By: #### 2 304171, 7460881, 6986495, 63847727, 8317135 ####[facility] [address] [place] [address] MCHC (RBC) [Mass/Vol] 32.5 g/dL Normal 31.4-36.0 [facility] Comment on above: Performed By: #### 2 310127, 1346023, 8410381, 45151248, 7272631 ####[address] [address] MCV (RBC) [Entitic vol] 86.4 fL Normal 80.0-100.0 F [facility] Comment on above: Performed By: #### 2 182580, 5954593, 8815736, 94842179, 5029714 ####[place] [address] Platelet mean volume (Bld) [Entitic vol] 7.4 fL Normal 6.4-10.8 [facility] Comment on above: Performed By: #### 2 472183, 5627317, 1037505, 22261301, 4157236 ####[address] [address] Platelets (Bld) [#/Vol] 362.0 E9/L Normal 150.0-500.0 [facility] Comment on above: Performed By: #### 2 713047, 6377510, 5446280, 95998638, 4857936 ####[facility] [address] [place] [address] RBC (Bld) [#/Vol] 3.0 E12/L Low 4.3-5.9 [facility] Comment on above: Performed By: #### 2 028612, 9275463, 2289844, 94813450, 4693443 ####[facility] [address] [place] [address] WBC corrected for nucl RBC Auto (Bld) [#/Vol] 9.8 E9/L Normal 4.0-11.0 [facility] Comment on above: Performed By: #### 2 092301, 7815836, 4577640, 50977598, 6002692 ####[facility] [address] [place] [address] Erythrocyte distribution width (RBC) [Ratio] 14.9 % High 10.9-14.2 [facility] Comment on above: Performed By: #### 2 685631, 7699529, 65324774, 7404273, 71495294, 80711260, 4038085 ####[facility] [address] [place] [address] Hematocrit (Bld) [Volume fraction] 22.1 % Low 34.0-46.0 [facility] Comment on above: Performed By: #### 2 683359, 0289247, 43104800, 8510091, 64361016, 63088180, 8146908 ####[facility] [address] [place] [address] Hemoglobin (Bld) [Mass/Vol] 7.5 g/dL Low 12.0-16.0 [facility] Comment on above: Performed By: #### 2 784780, 0494906, 09587363, 1692063, 48329189, 64905382, 7281018 ####[facility] [address] [place] [address] MCH (RBC) [Entitic mass] 29.7 pg Normal 27.0-34.0 [facility] Comment on above: Performed By: #### 2 293405, 1806156, 07315290, 6523986, 91508939, 73967954, 8281495 ####[address] [place] [address] MCHC (RBC) [Mass/Vol] 33.9 g/dL Normal 31.4-36.0 [facility] Comment on above: Performed By: #### 2 661027, 2828301, 89149119, 4636782, 96869131, 07061736, 7193786 ####[address] [place] [address] MCV (RBC) [Entitic vol] 87.6 fL Normal 80.0-100.0 [facility] Comment on above: Performed By: #### 2 584015, 4229172, 54854769, 2595599, 62868800, 48365653, 6076987 ####[address] [place] [address] Platelet mean volume (Bld) [Entitic vol] 8.1 fL Normal 6.4-10.8 [facility] Comment on above: Performed By: #### 2 111758, 9548013, 15531347, 6425645, 51883232, 51118793, 0180796 ####[address] [address] Platelets (Bld) [#/Vol] 346.0 E9/L Normal 150.0-500.0 [facility] Comment on above: Performed By: #### 2 768070, 1192002, 65465568, 7561015, 47798330, 90407945, 4575006 ####[address] [place] [address] RBC (Bld) [#/Vol] 2.5 E12/L Low 4.3-5.9 [facility] Comment on above: Performed By: #### 2 592274, 0349078, 56676990, 6510436, 78991631, 46414760, 8441836 ####[address] [place] [address] WBC corrected for nucl RBC Auto (Bld) [#/Vol] 5.9 E9/L Normal 4.0-11.0 [facility] Comment on above: Performed By: #### 2 407229, 6441708, 12986872, 4332994, 13090499, 65251175, 4680524 ####[address] [place] [address] CHEMISTRYOrdered By: SYSTEM SYSTEM on 12-20-2022 Calcium [Mass/Vol] 8.4 mg/dL Low 8.9 - 11. 1 mg/dL [facility] Remisol CK [Catalytic activity/Vol] 57 [iU]/d Normal [...] mg/dL Low 8.9 - 11. 1 mg/dL [facility] Remisol CRP [Mass/Vol] 14.3 mg/dL High <=1.9mg/dL [facility] Remis ol Glucose [Mass/Vol] 166 mg/dL Normal 55 - 199 mg/dL [facility] Comment on above: Interpretive Data: I f this glucose result represents a fasting glucose, interpretation should refer to the following reference range: 55-99 mg/dL Urea nitrogen/Creatinine [Mass ratio] 20 mg/mg Normal 10 - 20 [facility] Remisol CKon 12-20-2022 CK [Catalytic activity/Vol] 57 Int._Unit/L Normal 14-261 [facility] Comment on above: Performed By: #### 2 768591, 5542152, 3183242, 28171735, 0031422 ####[facility] [address] [place] [address] CRPon 12-20-2022 CRP [Mass/Vol] 14.3 mg/dL High <=1.9 [facility] Comment on above: Performed By: #### 2 021874, 8525216, 83258818, 8800592, 04475899, 25913932, 5850997 ####[facility] [address] [place] [address] Capillary Glucose POCon 11-30 Glucose [Mass/Vol] 134 mg/dL High 55-99 [facility] Comment on above: Result Comment: Fausto CHAUDHARY Performed By: #### 2 55997870 ####[facility] [address] [place] [address] Glucose [Mass/Vol] 166 mg/dL High [address] [place] [address] Comment on above: Result Comment: Fausto CHAUDHARY Performed By: #### 2 70293112 ####[facility] [address] [place] [address] Glucose [Mass/Vol] 237 mg/dL High [address] [place] [address] Comment on above: Performed By: #### 2 42773297 ####[facility] [address] [place] [address] Glucose [Mass/Vol] 307 mg/dL High [address] [place] [address] Comment on above: Result Comment: Fausto CHAUDHARY Performed By: #### 2 62753974 ####[facility] [address] [place] [address] Consent for Treatmenton 11-30 Consent for Treatment [id number]#1.00CD:127 Normal [facility] Consent for Treatment [id number]#1.00CD:127 Normal [facility] Consultation Noteon 12-21-19 23 Consultation Note Normal [facility] Comment on above: Result Comment: Elec tronically [...] % Normal 4 - 14 % F [facility] Monocytes/Leukocytes Manual cnt (Bld) [Pure # fraction] 0.5 E9/L Normal 0.2 - 1.0 E9/L FT [facility]eMan[facility] Neutrophils/Leukocytes Auto (Bld) [Pure # fraction] 4.2 E9/L Normal 2.0 - 7.5 E9/L [facility] HemeManSS Sed Rate Automated 87 mm/h High 0 - 34 mm/hr FT HemeAutoSS Segmented neutrophils/100 WBC (Bld) 72 % Normal 36 - 75 % [facility] HemeManSS Variant lymphocytes LM Ql (Bld) 0 % Normal <=0% [facility] HemeManSS Insurance Correspondence Off iceon 12-20-2022 Insurance Correspondence Office [id number]#1.00CD:127 Normal [facility] Interdisciplinary Note - Hardeep e Manageron 12-20-2022 Interdisciplinary Note - Clinical Biostatistician Normal [facility] Comment on above: Result Comment: Elec tronically Signed By: Radha Prabhakar\.br\Date and Time Signed: 12/20/22 13:36 EDT Main OR Intraoperative Recor don 12-20-2022 Main OR Intraoperative Record Normal [facility] Main OR PACU I Recordon 11-30 Main OR PACU I Record Normal [facility] Main OR Preoperative Recordo n 12-20-2022 Main OR Preoperative Record Normal [facility] Manual Diffon 12-20-2022 Band form neutrophils/100 WBC (Bld) 0 % Normal 0-10 [facility] Comment on above: Order Comment: Order Added by Discern Expert. Performed By: #### 2 028026, 6848200, 89725634, 9890505, 38787308, 72404919, 2807480 ####[facility] [address] [place] [address] Basophils/100 WBC (Bld) 0 % Normal 0-2 [facility] Comment on above: Order Comment: Order Added by Discern Expert. Performed By: #### 2 820414, 9778597, 27951754, 4805153, 45168998, 66413394, 5346293 ####[facility] [address] [place] [address] Eosinophils/100 WBC (Bld) 2 % Normal 0-8 [facility] Comment on above: Order Comment: Order Added by Discern Expert. Performed By: #### 2 329054, 0167752, 07070278, 4117426, 87388625, 80173318, 2580510 ####[facility] [address] [place] [address] Lymphocytes/100 WBC (Bld) 17 % Normal 14-50 [facility] Comment on above: Order Comment: Order Added by Discern Expert. Performed By: #### 2 154276, 1406587, 15126462, 3177397, 56230262, 73139128, 0358421 ####[facility] [address] [place] [address] Monocytes/100 WBC (Bld) 9 % Normal 4-14 [facility] Comment on above: Order Comment: Order Added by Discern Expert. Performed By: #### 2 273959, 7556480, 65269934, 4850403, 13149095, 85926950, 2177570 ####[facility] [address] [place] [address] Segmented neutrophils/100 WBC (Bld) 72 % Normal 36-75 [facility] Comment on above: Order Comment: Order Added by Discern Expert. Performed By: #### 2 282694, 1492940, 64423378, 2258214, 68386454, 92611359, 1060516 ####[facility] [address] [place] [address] Variant lymphocytes LM Ql (Bld) 0 % Normal <=0 [facility] Comment on above: Order Comment: Order Added by Discern Expert. Performed By: #### 2 732663, 2982620, 34489726, 4374536, 84465559, 83880508, 6662956 ####[facility] [address] [place] [address] Message from Medicare 11-30 Message from Medicare [id number]#1.00CD:127 Normal [facility] Message from Medicare [id number]#1.00CD:127 Normal [facility] Comment on above: Other Comment: forgo t to scan the back of it Monitor Recordon 12-20-2022 Monitor Record [id number]#1.00CD:127 Normal [facility] Monitor Record [id number]#1.00CD:127 Normal [facility] No Panel InformationOrdered By: Pita Butterfield on 12-20-2022 GS 2+ White Blood Cells 1+ Gram Positive Rods Occassional crystals seen on the slide [facility] Wound Culture 1+ Gram Positive Rods resembling diphtheroids [facility] GS 1+ White Blood Cells 2+ Gram Positive Rods Occassional crystals seen on the slide [facility] Wound Culture 1+ Gram Positive Rods resembling diphtheroids [facility] RCOon 12-20-2022 # of Units 1 Invalid Interpretation Code [facility] Comment on above: Order Comment: Blood product ready and called to STACIE _ at _12/20/2022 14:43:34 EDT by amh_. Performed By: #### 1 5005953 ####[facility] [address] [place] [address] Date Required 20221220 Invalid Interpretation Code [facility] Comment on above: Order Comment: Blood product ready and called to STACIE _ at _9/ 14:43:34 EDT by amh_. Performed By: #### 1 1031307 ####[facility] [address] [place] [address] Order to Transfuse Yes Normal [facility] Comment on above: Order Comment: Blood product ready and called to STACIE _ at _12/20/2022 14:43:34 EDT by amh_. Performed By: #### 1 4605523 ####[facility] [address] [place] [address] Product Type None Required Invalid Interpretation Code [facility] Comment on above: Order Comment: Blood product ready and called to STACIE _ at _12/20/2022 14:43:34 EDT by amh_. Performed By: #### 1 7568775 ####[facility] [address] [place] [address] Sed Rate Automatedon 023 Sed Rate Automated 87 mm/hr High 0-34 [facility] Comment on above: Performed By: #### 2 173313, 1869405, 13137310, 5380734, 08887176, 33263365, 7656376 ####[facility] [address] [place] [address] XR Hip 1 View Right + Pelvis on 12-20-2022 XR Hip 1 View Right + Pelvis Normal [facility] eGFRon 12-20-2022 GFR/1.73 sq M.predicted among non-blacks MDRD (S/P/Bld) [Vol rate/Area] 94 mL/min/1.73 m2 Normal >=59 [facility] Comment on above: Order Comment: Order added by Discern Expert. Result Comment: Web Site Designer marquez kidney disease could be indicated at eGFR's of less than 60 mL/min/1.73m2. Kidney failure is indicated at less than 15 mL/min/1.73m2. Performed By: #### 2 912612, 8611421, 7270006, 82382240, 6186435 ####[facility] [address] [place] [address] GFR/1.73 sq M.predicted among non-blacks MDRD (S/P/Bld) [Vol rate/Area] 94 mL/min/1.73 m2 Normal >=59 [facility] Comment on above: Order Comment: Order added by Discern Expert. Result Comment: Web Site Designer marquez kidney disease could be indicated at eGFR's of less than 60 mL/min/1.73m2. Kidney failure is indicated at less than 15 mL/min/1.73m2. Performed By: #### 2 742407, 6019513, 63200382, 1529429, 12341785, 88200197, 1242577 ####[facility] [address] [place] [address] Capillary Glucose POCon 11-30 Glucose [Mass/Vol] 396 mg/dL [address] Comment on above: Result Comment: Lucille ronak Meter Performed By: #### 2 79514102 ####[facility] [address] [place] [address] Glucose [Mass/Vol] 212 mg/dL [address] Comment on above: Result Comment: Lucille ronak Meter Performed By: #### 2 71470248 ####[facility] [address] [place] [address] No Panel InformationOrdered By: [facility] MICROBIOLOG[facility] on 12-19-2022 Blood Culture Charcoal No growth at 4 days. Final to follow at 7 days. [facility] Capillary Glucose POCon 11-30 Glucose [Mass/Vol] 171 mg/dL [address] Comment on above: Result Comment: Lucille ronak Meter Performed By: #### 2 89825434 ####[facility] [address] [place] [address] Glucose [Mass/Vol] 205 mg/dL [address] Comment on above: Result Comment: Lucille ronak Meter Performed By: #### 2 14997368 ####[facility] [address] [place] [address] Glucose [Mass/Vol] 329 mg/dL [address] Comment on above: Performed By: #### 2 49181343 ####[facility] [address] [place] [address] Glucose [Mass/Vol] 169 mg/dL [facility] Comment on above: Performed By: #### 2 36143117 ####[facility] [address] [place] [address] XR Hip 2-3 Views Right + Pel vison 12-18-2022 XR Hip 2-3 Views Right + Pelvis Normal [facility] Capillary Glucose POCon 11-29 Glucose [Mass/Vol] 209 mg/dL High - [facility] Comment on above: Result Comment: Lucille ronak Meter Performed By: #### 2 20611948 ####[facility] [address] [place] [address] Glucose [Mass/Vol] 187 mg/dL [facility] Comment on above: Performed By: #### 2 25315018 ####[facility] [address] [place] [address] Glucose [Mass/Vol] 266 mg/dL [facility] Comment on above: Performed By: #### 2 40198111 ####[facility] [address] [place] [address] Glucose [Mass/Vol] 164 mg/dL [facility] Comment on above: Result Comment: Lucille ronak Meter Performed By: #### 2 87153753 ####[facility] [address] [place] [address] Capillary Glucose POCon 11-29 Glucose [Mass/Vol] 212 mg/dL High [facility] Comment on above: Result Comment: Lucille ronak Meter Performed By: #### 2 74434571 ####[facility] [address] [place] [address] Glucose [Mass/Vol] 229 mg/dL High [facility] Comment on above: Performed By: #### 2 32693567 ####[facility] [address] [place] [address] Glucose [Mass/Vol] 152 mg/dL High [address] [place] [address] Comment on above: Result Comment: Lucille ronak Meter Performed By: #### 2 39653245 ####[facility] [address] [place] [address] Capillary Glucose POCon 11-29 Glucose [Mass/Vol] 228 mg/dL High [address] [place] [address] Comment on above: Result Comment: Lucille ronak Meter Performed By: #### 2 66347372 ####[facility] [address] [facility] [address] Glucose [Mass/Vol] 208 mg/dL [address] Comment on above: Result Comment: Repe at TestCleaned Meter Performed By: #### 2 06801639 ####[facility] [address] [place] [address] Glucose [Mass/Vol] 183 mg/dL [address] Comment on above: Result Comment: Lucille ronak Meter Performed By: #### 2 93066412 ####[facility] [address]zdw836 [place] [address] Glucose [Mass/Vol] 281 mg/dL [address] Comment on above: Result Comment: Lucille ronak Meter Performed By: #### 2 52903409 ####[facility] [address] AveNlaw[facility] [address] Capillary Glucose POCon 11-29 Glucose [Mass/Vol] 130 mg/dL [address] Comment on above: Result Comment: Lucille ronak Meter Performed By: #### 2 21677405 ####[facility] [address] [place] [address] Glucose [Mass/Vol] 144 mg/dL [address] Comment on above: Result Comment: Lucille ronak Meter Performed By: #### 2 23772778 ####[facility] [address] [place] [address] Glucose [Mass/Vol] 157 mg/dL High [address] [place] [address] Comment on above: Result Comment: Lucille ronak Meter Performed By: #### 2 83461492 ####[facility] [address] [place] [address] Glucose [Mass/Vol] 143 mg/dL [address] Comment on above: Result Comment: Lucille ronak Meter Performed By: #### 2 05218384 ####[facility] [address] [place] [address] Capillary Glucose POCon 11-29 Glucose [Mass/Vol] 145 mg/dL [address] Comment on above: Result Comment: Lucille ronak Meter Performed By: #### 2 96766458 ####[facility] [address] [place] [address] Glucose [Mass/Vol] 132 mg/dL [address] Comment on above: Performed By: #### 2 32281845 ####[facility] [address] [place] [address] Glucose [Mass/Vol] 223 mg/dL [address] Comment on above: Performed By: #### 2 10410384 ####[facility] Qmroqrcbz[address]521 [place] [address] Glucose [Mass/Vol] 248 mg/dL [address] Comment on above: Result Comment: Lucille ronak Meter Performed By: #### 2 83822338 ####[facility] [address] [place] [address] Capillary Glucose POCon 11-29 Glucose [Mass/Vol] 292 mg/dL [address] Comment on above: Result Comment: Lucille ronak Meter Performed By: #### 2 59093939 ####[facility] [address] [facility] [address] Glucose [Mass/Vol] 115 mg/dL [address] Comment on above: Result Comment: Lucille ronak Meter Performed By: #### 2 [id number] ####[facility] Vlneasmdyf032 [place] [address] Glucose [Mass/Vol] 207 mg/dL [address] Comment on above: Result Comment: Lucille ronak Meter Performed By: #### 2 [id number] ####[facility] Gle[address]my[address] [place] [address] Glucose [Mass/Vol] 159 mg/dL [address] Comment on above: Result Comment: Lucille ronak Meter Performed By: #### 2 [id number] ####[facility] Kwbfebfsnz222 [place] [address] Capillary Glucose POCon 11-29 Glucose [Mass/Vol] 256 mg/dL [address] Comment on above: Result Comment: Lucille ronak Meter Performed By: #### 2 [id number] ####[facility] Yukgkxjugt274 [place] [address] Glucose [Mass/Vol] 129 mg/dL [address] Comment on above: Result Comment: Lucille ronak Meter Performed By: #### 2 [id number] ####[facility] Wyahumgwly344 [place] [address] Glucose [Mass/Vol] 235 mg/dL [address] Comment on above: Performed By: #### 2 [id number] ####[facility] Tooee[address] [facility] [address] Glucose [Mass/Vol] 183 mg/dL [address] Comment on above: Result Comment: Lucille ronak Meter Performed By: #### 2 [id number] ####[facility] Mwxpvcwwpy740 [place] [address] Glucose [Mass/Vol] 178 mg/dL [address] Comment on above: Result Comment: Lucille ronak Meter Performed By: #### 2 [id number] ####[facility] Jzxbkwzbhh704 [place] [address] Capillary Glucose POCon 11-29 Glucose [Mass/Vol] 159 mg/dL High - [facility] Comment on above: Result Comment: Lucille ronak Meter Performed By: #### 2 [id number] ####[facility] Julanfsjph149 [place] [address] Glucose [Mass/Vol] 149 mg/dL High - [facility] Comment on above: Result Comment: Lucille ronak Meter Performed By: #### 2 [id number] ####[facility] Iumugfamkr592 [place] [address] Glucose [Mass/Vol] 217 mg/dL High [address] [place] [address] Comment on above: Result Comment: Lucille ronak Meter Performed By: #### 2 [id number] ####[facility] Xboyyujbzf457 [place] [address] Glucose [Mass/Vol] 206 mg/dL High [facility] Comment on above: Result Comment: Lucille ronak Meter Performed By: #### 2 [id number] ####[facility] Kontsvxicw095 [place] [address] Capillary Glucose POCon 11-29 Glucose [Mass/Vol] 83 mg/dL Normal - [facility] Comment on above: Result Comment: Lucille ronak Meter Performed By: #### 2 [id number] ####[facility] Glidryjtau[address] [place] [address] Glucose [Mass/Vol] 215 mg/dL High -[address] [place] [address] Comment on above: Performed By: #### 2 [id number] ####[facility] Covlxfcadl226 [place] [address] Glucose [Mass/Vol] 317 mg/dL High [address] [place] [address] Comment on above: Performed By: #### 2 [id number] ####[facility] Holnvpoygt279 [place] [address] Glucose [Mass/Vol] 166 mg/dL High - [facility] Comment on above: Result Comment: Lucille ronak Meter Performed By: #### 2 [id number] ####[facility] Lvlndrarnu[address] [place] [address] Family Medicine Office/Clini c Noteon 12-09-2022 Family Medicine Office/Clinic Note Normal [facility] Comment on above: Result Comment: Elec tronically Signed By: Emely Mccall DO.\.br\Date and Time Signed: 12/09/22 09:50 EDT\.br\Electronically Co-Signed By: Sriram Tesfaye\.br\Date and Time Co-Signed: 12/09/22 01:31 EDT Capillary Glucose POCon 11-29 Glucose [Mass/Vol] 282 mg/dL High [facility] Comment on above: Performed By: #### 2 [id number] ####[facility] Jxouxmedep[address] [place] [address] Glucose [Mass/Vol] 175 mg/dL [facility] Comment on above: Performed By: #### 2 [id number] ####[facility] [address]efkoqbmj[address] [place] [address] Glucose [Mass/Vol] 316 mg/dL High [facility] Comment on above: Performed By: #### 2 [id number] ####[facility] [address] [place] [address] Glucose [Mass/Vol] 262 mg/dL [facility] Comment on above: Result Comment: Lucille ronak Meter Performed By: #### 2 [id number] ####[facility] X[address]wvhwwnf[address] [place] [address] Capillary Glucose POCon Glucose [Mass/Vol] 273 mg/dL High [address] Comment on above: Result Comment: Lucille ronak Meter Performed By: #### 2 [id number] ####[facility] Snmxtbeano[address] [place] [address] Glucose [Mass/Vol] 150 mg/dL High [facility] Comment on above: Performed By: #### 2 [id number] ####[facility] Ivnfvennjq449 [place] [address] Glucose [Mass/Vol] 58 mg/dL Normal -[address] [place] [address] Comment on above: Performed By: #### 2 [id number] ####[facility] Mwqwkpavzu753 [facility] [address] Glucose [Mass/Vol] 256 mg/dL [place] [address] [place] [address] Comment on above: Performed By: #### 2 [id number] ####[facility] Ydystflpmw730 [place] [address] Glucose [Mass/Vol] 117 mg/dL [place] [address] [place] [address] Comment on above: Result Comment: Lucille ronak Meter Performed By: #### 2 [id number] ####[facility] Pzaivipite[address] [place] [address] Capillary Glucose POCon 0 Glucose [Mass/Vol] 165 mg/dL [place] [address] [place] [address] Comment on above: Result Comment: Lucille ronak Meter Performed By: #### 2 [id number] ####[facility] Yyuouskezd691 [place] [address] Glucose [Mass/Vol] 202 mg/dL [address] Comment on above: Result Comment: Lucille ronak Meter Performed By: #### 2 [id number] ####[facility] Pbkjvflumu122 [place] [address] Glucose [Mass/Vol] 280 mg/dL [place] [address] [place] [address] Comment on above: Result Comment: Lucille ronak Meter Performed By: #### 2 [id number] ####[facility] O[address]vv[address]ookp447 [place] [address] Glucose [Mass/Vol] 156 mg/dL [address] Comment on above: Result Comment: Lucille ronak Meter Performed By: #### 2 [id number] ####[facility] Oqpvsocpjh337 [place] [address] Capillary Glucose POCon 09-0 Glucose [Mass/Vol] 152 mg/dL High 55-99 [facility] Comment on above: Result Comment: Lucille ronak Meter Performed By: #### 2 [id number] ####[facility] Aewssoqfor584 [place] [address] Glucose [Mass/Vol] 192 mg/dL High 55-99 [facility] Comment on above: Performed By: #### 2 [id number] ####[facility] Tzwjadljkn[address] [place] [address] Glucose [Mass/Vol] 317 mg/dL High 55-99 [facility] Comment on above: Result Comment: Lucille ronak Meter Performed By: #### 2 [id number] ####[facility] Uwmfhunawc340 [address] [place] [address] Glucose [Mass/Vol] 185 mg/dL High -[address] [place] [address] Comment on above: Performed By: #### 2 [id number] ####[facility] Pwxkarzbvs[address] [place] [address] C Urineon 12-04-2022 Bacteria identified Cx Nom (U) Normal [facility] Comment on above: Performed By: #### 1 [id number], 6980932 ####[facility] [address]yqklwhuxn[address] [place] [address] Capillary Glucose POCon Glucose [Mass/Vol] 206 mg/dL [place] [address] [place] [address] Comment on above: Result Comment: Lucille ronak Meter Performed By: #### 2 [id number] ####[facility] [address]whwbcixsu9[address] [place] [address] Glucose [Mass/Vol] 181 mg/dL High 55-99 [facility] Comment on above: Result Comment: Lucille ronak Meter Performed By: #### 2 [id number] ####[facility] Ltjavbynlc[address] [place] [address] Glucose [Mass/Vol] 289 mg/dL High 55-99 [facility] Comment on above: Performed By: #### 2 [id number] ####[facility] Gflmjuwtoa991 [place] [address] Glucose [Mass/Vol] 211 mg/dL High 55-99 [facility] Comment on above: Result Comment: Lucille ronak Meter Performed By: #### 2 [id number] ####[facility] Atzoqmypiz291 [place] [address] Family Medicine Office/Clini c Noteon 12-04-2022 Family Medicine Office/Clinic Note Normal [facility] Comment on above: Result Comment: Elec tronically Signed By: ZAIRA BANKS, Manuel.br\Date and Time Signed: 12/03/22 22:17 EDT Capillary Glucose POCon Glucose [Mass/Vol] 159 mg/dL High 55-99 [facility] Comment on above: Result Comment: Lucille ronak Meter Performed By: #### 2 [id number] ####[facility] [address]flkyrekzv[address] [place] [address] Glucose [Mass/Vol] 89 mg/dL Normal 55-99 [facility] Comment on above: Performed By: #### 2 [id number] ####[facility] Bclncyquju110 [place] [address] Glucose [Mass/Vol] 194 mg/dL High 55-99 [facility] Comment on above: Performed By: #### 2 [id number] ####[facility] Hvhdliphjt786 [place] [address] Glucose [Mass/Vol] 204 mg/dL High 55-99 [facility] Comment on above: Result Comment: Lucille ronak Meter Performed By: #### 2 [id number] ####[facility] Kftmhjjqfx817 [place] [address] Capillary Glucose POCon Glucose [Mass/Vol] 178 mg/dL High 55-99 [facility] Comment on above: Performed By: #### 2 [id number] ####[facility] Mmzlvphgtf304 [place] [address] Glucose [Mass/Vol] 173 mg/dL High 55-99 [facility] Comment on above: Performed By: #### 2 [id number] ####[facility] [address]boclvnnh505 [place] [address] Glucose [Mass/Vol] 230 mg/dL High 55-99 [facility] Comment on above: Performed By: #### 2 [id number] ####[facility] Bzrieexwbn898 [place] [address] Glucose [Mass/Vol] 347 mg/dL High 55-99 [facility] Comment on above: Result Comment: Insu melissa StartedCleaned Meter Performed By: #### 2 [id number] ####[facility] T[address]xr[address]939 [place] [address] Glucose [Mass/Vol] 265 mg/dL High 55- [facility] Comment on above: Performed By: #### 2 [id number] ####[facility] [address] [place] [address] UA With Cult Reflexon 2022 Bacteria LM Ql (Urine sed) 3+ /HPF Abnormal Trace [facility] Comment on above: Performed By: #### 1 [id number], 4838166 ####[facility] [address] [place] [address] Bilirubin Ql (U) Negative Normal Negative [facility] Comment on above: Performed By: #### 1 9472511, 9622054 ####[address] [address] Clarity (U) CLOUDY Abnormal Clear [facility] Comment on above: Performed By: #### 1 [id number], 0712652 ####[facility] [address] [place] [address] Color (U) YELLOW Normal Yellow [facility] Comment on above: Performed By: #### 1 5721135, 4594815 ####[address] [address] Epithelial cells.squamous LM.HPF (Urine sed) [#/Area] 0-2 Normal 0-2 [facility] Comment on above: Performed By: #### 1 6794747, 7422350 ####[facility] Iofrfdlflc225 [place] [address] Glucose Test strip (U) [Mass/Vol] Negative Normal Negative [facility] Comment on above: Performed By: #### 1 3052421, 0442141 ####[facility] [address] [place] [address] Hemoglobin Ql (U) 1+ Abnormal Negative [facility] Comment on above: Performed By: #### 1 5163950, 6440655 ####[address] [address] Ketones (U) [Mass/Vol] Negative Normal Negative [facility] Comment on above: Performed By: #### 1 5707935, 9684462 ####[address] [address] Pattison.plasma/Pattison. RBC (Bld) [Mass ratio] 0-3 Normal 0-3 [facility] Comment on above: Performed By: #### 1 [id number], 8997743 ####[facility] [address] [place] [address] Mucus Ql (Urine sed) TRACE Normal [facility] Comment on above: Performed By: #### 1 [id number], 9194506 ####[address] [address] Nitrite Ql (U) Negative Normal Negative [facility] Comment on above: Performed By: #### 1 [id number], 6344184 ####[address] [address] pH (U) 5.5 [pH] Invalid Interpretation Code 5.0-9.0 [facility] Comment on above: Performed By: #### 1 0278884, 2854597 ####[address] [address] Protein (U) [Mass/Vol] 1+ Abnormal Negative [facility] Comment on above: Performed By: #### 1 0769009, 9608024 ####[facility] [address] [place] [address] Specific gravity (U) [Rel density] 1.025 Invalid Interpretation Code 1.005-1.030 [facility] Comment on above: Performed By: #### 1 9025271, 8748139 ####[address] [address] Type of Urine collection method Clean Catch Normal [facility] Comment on above: Performed By: #### 1 [id number], 6387412 ####[facility] [address] [place] [address] Urobilinogen Qn (U) 2.0 {Papa'U}/dL Abnormal 0.0-1.0 [facility] Comment on above: Performed By: #### 1 2552163, 4358042 ####[address] [address] WBC Auto Ql (U) 3+ Abnormal Negative [facility] Comment on above: Performed By: #### 1 5797054, 1571691 ####[facility] [address] [place] [address] WBC LM.HPF (Urine sed) [#/Area] /[HPF] Abnormal 0-5 [facility] Comment on above: Performed By: #### 1 [id number], 8588479 ####[facility] [address] [place] [address] Capillary Glucose POCon 09-0 Glucose [Mass/Vol] 196 mg/dL [facility] [address] [place] [address] Comment on above: Performed By: #### 2 [id number] ####[facility] [address] [place] [address] Glucose [Mass/Vol] 313 mg/dL [facility] [address] [place] [address] Comment on above: Performed By: #### 2 [id number] ####[facility] [address] [place] [address] Glucose [Mass/Vol] 243 mg/dL [facility] 5599 [facility] Comment on above: Result Comment: Lucille ronak Meter Performed By: #### 2 [id number] ####[facility] D[address]wk313 [place] [address] Capillary Glucose POCon Glucose [Mass/Vol] 181 mg/dL High 55-99 [facility] Comment on above: Result Comment: Lucille ronak Meter Performed By: #### 2 [id number] ####[facility] Uhboqcpbip[address] [place] [address] Glucose [Mass/Vol] 244 mg/dL High 55-99 [facility] Comment on above: Result Comment: Lucille ronak Meter Performed By: #### 2 [id number] ####[facility] [address]umsm[address] [place] [address] Glucose [Mass/Vol] 177 mg/dL High 55-99 [facility] Comment on above: Performed By: #### 2 33827017 ####[facility] [address]eoeesopuv[address] [place] [address] Glucose [Mass/Vol] 272 mg/dL High 55-99 [facility] Comment on above: Result Comment: Lucille ronak Meter Performed By: #### 2 15507436 ####[facility] Mftbqnccxk369 [address] [place] [address] Glucose [Mass/Vol] 219 mg/dL High 55-99 [facility] Comment on above: Performed By: #### 2 48780040 ####[facility] Qdhxltzuae683 [place] [address] CHEMISTRYOrdered By: Lab ROP User on 11-29-2022 Glucose [Mass/Vol] 209 mg/dL High 55 - 99 mg/dL FTM C POC Subsection Comment on above: Result Comment: Fausto rubi RN/ POC Device SN [id number] Invalid Interpretation Code FT POC Subsection POC User ID [id number] Invalid Interpretation Code [facility] POC Subsection POC Username STEPHANIE JANE Invalid Interpretation Code [facility] POC Subsection Glucose [Mass/Vol] 147 mg/dL High 55 - 99 mg/dL FTM C POC Subsection Comment on above: Result Comment: Fausto rubi RN/ POC Device SN [id number] Invalid Interpretation Code [facility] POC Subsection POC User ID [id number] Invalid Interpretation Code [facility] POC Subsection POC Username STEPHANIE JANE Invalid Interpretation Code [facility] POC Subsection Capillary Glucose POCon Glucose [Mass/Vol] 189 mg/dL High 55-99 [facility] Comment on above: Performed By: #### 2 [id number] ####[facility] [address]osqy[address] [place] [address] Glucose [Mass/Vol] 209 mg/dL High 55-99 [facility] Comment on above: Result Comment: Fausto rubi RN/ Performed By: #### 2 26541308 ####[facility] [address] [place] [address] Glucose [Mass/Vol] 147 mg/dL High 55-99 [facility] Comment on above: Result Comment: Fausto rubi RN/ Performed By: #### 2 56412808 ####[facility] [address]220 [place] [address] Discharge Instructionson Discharge Instructions [id number]#1.00CD:127 Normal [facility] Discharge Note-Nursingon Discharge Note-Nursing [facility] Insurance Correspondence Off iceon 11-29-2022 Insurance Correspondence Office [id number]#1.00CD:127 Normal [facility] Interdisciplinary Note - Hardeep e Manageron 11-29-2022 Interdisciplinary Note - Clinical Biostatistician [facility] Comment on above: Result Comment: Elec tronically Signed By: Radha Prabhakar\.br\Date and Time Signed: 11/29/22 11:10 EDT Interdisciplinary Note - Clinical Biostatistician [facility] Comment on above: Result Comment: Elec tronically Signed By: Radha Prabhakar\.br\Date and Time Signed: 11/29/22 10:44 EDT Medication Listson Medication Lists [id number]#1.00CD:127 Normal [facility] Message from Medicareon 09 Message from Medicare [id number]#1.00CD:127 Normal [facility] Monitor Recordon 11-29-2022 Monitor Record [id number]#1.00CD:127 Normal [facility] Monitor Record [id number]#1.00CD:127 Normal [facility] Monitor Record [id number]#1.00CD:127 Normal [facility] Progress Note-Physicianon Progress Note-Physician Normal [facility] Comment on above: Result Comment: Elec tronically Signed By: FALLON BANKS, Soni\.br\Date and Time Signed: 11/29/22 09:02 EDT Transfer Documentson 023 Transfer Documents [id number]#1.00CD:127 Normal [facility] Auto Diffon 11-28-2022 Basophils/100 WBC (Bld) 0.2 % Normal 0.0-2.0 [facility] Comment on above: Order Comment: Order Added by Discern Expert. Performed By: #### 1 [id number], 5803434, 1252708, 6980192, 1005514, 9974446 ####[facility] [address]rv[address] [place] [address] Basophils/Leukocytes Auto (Bld) [Pure # fraction] 0.0 E9/L Normal 0.0-0.2 [facility] Comment on above: Order Comment: Order Added by Discern Expert. Performed By: #### 1 0671517, 5737544, 3255963, 6699269, 1921261, 7203605 ####[facility] [address] [place] [address] Eosinophils/100 WBC (Bld) 5.7 % Normal 0.0-8.0 [facility] Comment on above: Order Comment: Order Added by Discern Expert. Performed By: #### 1 1263579, 0512565, 1012418, 9252037, 7397319, 8523970 ####[address] [address] Eosinophils/Leukocytes Auto (Bld) [Pure # fraction] 0.5 E9/L Normal 0.0-0.5 [facility] Comment on above: Order Comment: Order Added by Discern Expert. Performed By: #### 1 0745731, 6951496, 8708006, 7085017, 5130412, 7712275 ####[address] [address] Lymphocytes/100 WBC (Bld) 17.0 % Normal 14.0-50.0 [facility] Comment on above: Order Comment: Order Added by Katherine Expert. Performed By: #### 1 9590667, 6613191, 7875501, 4140231, 7503616, 9933647 ####[address] [address] Lymphocytes/Leukocytes Auto (Bld) [Pure # fraction] 1.5 E9/L Normal 1.0-4.0 [facility] Comment on above: Order Comment: Order Added by Katherine Expert. Performed By: #### 1 2019686, 5689072, 1388480, 9512189, 4657874, 2430739 ####[address] [address] Monocytes/100 WBC (Bld) 11.7 % Normal 4.0-14.0 [facility] Comment on above: Order Comment: Order Added by Katherine Expert. Performed By: #### 1 6030657, 7540279, 0570514, 6273297, 9285865, 7244695 ####[address] [address] Monocytes/Leukocytes Auto (Bld) [Pure # fraction] 1.1 E9/L High 0.2-1.0 [facility] Comment on above: Order Comment: Order Added by Katherine Expert. Performed By: #### 1 9298736, 3459042, 0503148, 7009442, 3466553, 6147918 ####[facility] [address] [place] [address] Neutrophils/100 WBC (Bld) 65.4 % Normal 36.0-75.0 [facility] Comment on above: Order Comment: Order Added by Discern Expert. Performed By: #### 1 3420411, 1804122, 0983129, 2055082, 0725463, 9052362 ####[facility] [address] [place] [address] Neutrophils/Leukocytes Auto (Bld) [Pure # fraction] 5.9 E9/L Normal 2.0-7.5 [facility] Comment on above: Order Comment: Order Added by Discern Expert. Performed By: #### 1 2295601, 2053163, 9763219, 7091297, 3345602, 5477321 ####[address] [address] BUNon 11-28-2022 Urea nitrogen [Mass/Vol] 13 mg/dL Normal 5-21 [facility] Comment on above: Performed By: #### 1 8646573, 6571042, 5069775, 5106505, 9640483, 3968862 ####[address] [address] CBC w/ Auto Diffon Erythrocyte distribution width (RBC) [Ratio] 13.2 % Normal 10.9-14.2 [facility] Comment on above: Performed By: #### 1 2902798, 4607607, 9940516, 7594442, 5544976, 1954816 ####[place] [address] [place] [address] Hematocrit (Bld) [Volume fraction] 24.5 % Low 34.0-46.0 [facility] Comment on above: Performed By: #### 1 2900393, 2353692, 5164585, 1681449, 0357352, 8518725 ####[facility] [address] [place] [address] Hemoglobin (Bld) [Mass/Vol] 8.6 g/dL Low 12.0-16.0 [facility] Comment on above: Performed By: #### 1 0948052, 8346776, 2284664, 3898803, 2560937, 0933121 ####[facility] [address] [place] [address] MCH (RBC) [Entitic mass] 31.1 pg Normal 27.0-34.0 [facility] Comment on above: Performed By: #### 1 9519799, 3586020, 4485922, 8354159, 1818437, 1800979 ####[facility] [address] [place] [address]57 MCHC (RBC) [Mass/Vol] 35.0 g/dL Normal 31.4-36.0 [facility] Comment on above: Performed By: #### 1 8846891, 6846028, 0394185, 1473904, 9466225, 6455111 ####[address] [address] MCV (RBC) [Entitic vol] 89.1 fL Normal 80.0-100.0 F [facility] Comment on above: Performed By: #### 1 8082194, 7651464, 8230130, 1675141, 6117643, 9094765 ####[address] [address] Platelet mean volume (Bld) [Entitic vol] 9.0 fL Normal 6.4-10.8 [facility] Comment on above: Performed By: #### 1 6572250, 5422724, 6880101, 8055525, 3524346, 1455310 ####[place] [address] [place] [address] Platelets (Bld) [#/Vol] 158.0 E9/L Normal 150.0-500.0 [facility] Comment on above: Performed By: #### 1 [id number], 6361071, 0420312, 5905645, 3100260, 7276918 ####[facility] [address] [place] [address] RBC (Bld) [#/Vol] 2.8 E12/L Low 4.3-5.9 [facility] Comment on above: Performed By: #### 1 2018825, 2835071, 6008967, 9302031, 5811396, 6811963 ####[facility] [address] [place] [address] WBC corrected for nucl RBC Auto (Bld) [#/Vol] 9.1 E9/L Normal 4.0-11.0 [facility] Comment on above: Performed By: #### 1 5829303, 7836723, 1395379, 1364786, 0602643, 6284069 ####[facility] [address] [place] [address] CHEMISTRYOrdered By: Lab ROP User on 11-28-2022 Glucose [Mass/Vol] 141 mg/dL High 55 - 99 mg/dL [facility] C POC Subsection Comment on above: Result Comment: Fausto rubi RN/ POC Device SN [id number] Invalid Interpretation Code [facility] POC Subsection POC User ID [id number] Invalid Interpretation Code [facility] POC Subsection POC Username JOANNA AG Invalid Interpretation Code [facility] POC Subsection CHEMISTRYOrdered By: SYSTEM SYSTEM on 11-28-2022 Anion gap [Moles/Vol] 7 mmol/L Normal 6 - 16 mEq/L [facility] Remisol Chloride [Moles/Vol] 112 mmol/L High 101 - 1 11 mmol/L [facility] Remisol CO2 [Moles/Vol] 25 mmol/L Normal 21 - 31 mmol/L [facility] Remisol Creatinine [Mass/Vol] 0.9 mg/dL Normal 0.5 - 1.3 mg/dL [facility] Remisol GFR/1.73 sq M.predicted among non-blacks MDRD (S/P/Bld) [Vol rate/Area] 70 mL/min/1.73 m2 Normal >=59mL/min/1.7 3 m2 [facility] Chem S Potassium [Moles/Vol] 3.6 mmol/L Normal 3.5 - 5.3 mmol/L [facility] Remisol Sodium [Moles/Vol] 140 mmol/L Normal 135 - 145 mmol/L [facility] Remisol Urea nitrogen [Mass/Vol] 13 mg/dL Normal 5 - 21 mg/dL [facility] Remisol Capillary Glucose POCon 10-31 Glucose [Mass/Vol] 141 mg/dL High 55-99 [facility] Comment on above: Result Comment: Fausto CHAUDHARY Performed By: #### 2 [id number] ####[facility] [address] [place] [address] Glucose [Mass/Vol] 118 mg/dL High 55-99 [facility] Comment on above: Result Comment: Fausto CHAUDHARY Performed By: #### 2 [id number] ####[address] [address] Glucose [Mass/Vol] 221 mg/dL High 55-99 [facility] Comment on above: Result Comment: Fausto CHAUDHARY Performed By: #### 2 [id number] ####[address] [place] [address] Glucose [Mass/Vol] 147 mg/dL High 55-99 [facility] Comment on above: Result Comment: Fausto CHAUDHARY Performed By: #### 2 [id number] ####[address] [place] [address] Glucose [Mass/Vol] 169 mg/dL [facility] 55-99 [facility] Comment on above: Result Comment: Fausto CHAUDHARY Performed By: #### 2 [id number] ####[facility] [address] [place] [address] Creatinineon 11-28-2022 Creatinine [Mass/Vol] 0.9 mg/dL Normal 0.5-1.3 [facility] Comment on above: Performed By: #### 1 0820893, 0609963, 6050431, 0455994, 5195059, 3522304 ####[facility] [address] [place] [address] GetWell Education Videoon GetWell Education Video Yes Patient Avoiding Infections in the Hospital Normal [facility] HEMATOLOGYOrdered By: SYSTEM SYSTEM on 11-28-2022 Basophils/100 [...] 89.1 fL Normal 80.0 - 100.0 fL [facility] HemeAutoSS Platelet mean volume (Bld) [Entitic vol] 9.0 fL Normal 6.4 - 10.8 fL [facility] HemeAutoSS Platelets (Bld) [#/Vol] 158.0 E9/L Normal 150. 0 - 500.0 E9/L [facility] HemeAutoSS RBC (Bld) [#/Vol] 2.8 E12/L Low 4.3 - 5.9 E12/L [facility] HemeAutoSS WBC corrected for nucl RBC Auto (Bld) [#/Vol] 9.1 E9/L Normal 4.0 - 11.0 E9/L [facility] HemeAutoSS Inpatient Clinical Summaryon 11-28-2022 Inpatient Clinical Summary Normal [facility] Inpatient Patient Summaryon 11-28-2022 Inpatient Patient Summary Normal [facility] IntraOperative Documentson 0 11-28-2022 IntraOperative Documents [id number]#1.00CD:127 Normal [facility] Lyteson 11-28-2022 Anion gap [Moles/Vol] 7 mmol/L Normal 6-16 [facility] Comment on above: Performed By: #### 1 [id number], 3369191, 1319158, 8830787, 0187541, 3975036 ####[facility] [address] [place] [address] Chloride [Moles/Vol] 112 mmol/L High 101-111 [facility] Comment on above: Performed By: #### 1 4662625, 1100060, 8772263, 2782857, 4721858, 1018427 ####[facility] [address] [address] CO2 [Moles/Vol] 25 mmol/L Normal - [facility] Comment on above: Performed By: #### 1 7856834, 2164699, 3940198, 0417047, 0372985, 9025648 ####[facility] [address] AveNlaw[address] [address] Potassium [Moles/Vol] 3.6 mmol/L Normal 3.5-5.3 [facility] Comment on above: Performed By: #### 1 1275207, 5395527, 2760756, 5533143, 2803044, 7382883 ####[facility] [address] [place] [address] Sodium [Moles/Vol] 140 mmol/L Normal 135-145 [facility] Comment on above: Performed By: #### 1 6152624, 5008316, 1949366, 8189855, 9787701, 5222640 ####[facility] [address] [place] [address] Monitor Recordon 11-28-2022 Monitor Record [id number]#1.00CD:127 Normal [facility] Monitor Record [id number]#1.00CD:127 Normal [facility] Monitor Record [id number]#1.00CD:127 Normal [facility] Progress Note-Physicianon Progress Note-Physician Normal F [facility] Comment on above: Result Comment: Elec tronically Signed By: Joaquim Noe DO\.br\Date and Time Signed: 11/28/22 17:17 EDT Progress Note-Physician Normal F [facility] Comment on above: Result Comment: Elec tronically Signed By: FALLON BANKS, Soni\.br\Date and Time Signed: 11/28/22 09:37 EDT eGFRon 11-28-2022 GFR/1.73 sq M.predicted among non-blacks MDRD (S/P/Bld) [Vol rate/Area] 70 mL/min/1.73 m2 Normal >=59 [facility] Comment on above: Order Comment: Order added by Discern Expert. Result Comment: Web Site Designer marquez kidney disease could be indicated at eGFR's of less than 60 mL/min/1.73m2. Kidney failure is indicated at less than 15 mL/min/1.73m2. Performed By: #### 1 9956072, 2277010, 4223470, 5390916, 6518312, 7539932 ####[address] [address] Auto Diffon 11-27-2022 Basophils/100 WBC (Bld) 0.2 % Normal 0.0-2.0 [facility] Comment on above: Order Comment: Order Added by Discern Expert. Performed By: #### 2 390958, 0703130 ####[address] [address] Basophils/Leukocytes Auto (Bld) [Pure # fraction] 0.0 E9/L Normal 0.0-0.2 [facility] Comment on above: Order Comment: Order Added by Discern Expert. Performed By: #### 2 443530, 6414756 ####[address] [address] Eosinophils/100 WBC (Bld) 1.8 % Normal 0.0-8.0 [facility] Comment on above: Order Comment: Order Added by Discern Expert. Performed By: #### 2 071051, 2188420 ####[address] [address] Eosinophils/Leukocytes Auto (Bld) [Pure # fraction] 0.2 E9/L Normal 0.0-0.5 [facility] Comment on above: Order Comment: Order Added by Discern Expert. Performed By: #### 2 828619, 2847635 ####[address] [address] Lymphocytes/100 WBC (Bld) 16.0 % Normal 14.0-50.0 [facility] Comment on above: Order Comment: Order Added by Discern Expert. Performed By: #### 2 234223, 6895578 ####[address] [address] Lymphocytes/Leukocytes Auto (Bld) [Pure # fraction] 1.4 E9/L Normal 1.0-4.0 [facility] Comment on above: Order Comment: Order Added by Discern Expert. Performed By: #### 2 819195, 0376282 ####[facility] [address] [place] [address] Monocytes/100 WBC (Bld) 11.9 % Normal 4.0-14.0 F [facility] Comment on above: Order Comment: Order Added by Discern Expert. Performed By: #### 2 886796, 3686644 ####[facility] [address] [place] [address] Monocytes/Leukocytes Auto (Bld) [Pure # fraction] 1.0 E9/L Normal 0.2-1.0 [facility] Comment on above: Order Comment: Order Added by Discern Expert. Performed By: #### 2 059396, 2671519 ####[address] [address] Neutrophils/100 WBC (Bld) 70.1 % Normal 36.0-75.0 [facility] Comment on above: Order Comment: Order Added by Discern Expert. Performed By: #### 2 611455, 8145575 ####[facility] [address] [place] [address] Neutrophils/Leukocytes Auto (Bld) [Pure # fraction] 6.2 E9/L Normal 2.0-7.5 [facility] Comment on above: Order Comment: Order Added by Discern Expert. Performed By: #### 2 219533, 2637305 ####[facility] [address] [place] [address] BMPon 11-27-2022 Anion gap [Moles/Vol] 7 mmol/L Normal 6-16 [facility] Comment on above: Performed By: #### 1 6251083, 9744143 ####[facility] [address] [place] [address] Calcium [Mass/Vol] 8.1 mg/dL Low 8.9-11.1 [facility] Comment on above: Performed By: #### 1 0304940, 0158937 ####[facility] [address] [place] [address] Chloride [Moles/Vol] 114 mmol/L High 101-[address] [facility] Comment on above: Performed By: #### 1 9087365, 6222908 ####[facility] [address] [place] [address] CO2 [Moles/Vol] 23 mmol/L Normal 21-31 [facility] Comment on above: Performed By: #### 1 2624256, 2341161 ####[facility] [address] AveNlawrence[facility] [address] Creatinine [Mass/Vol] 1.0 mg/dL Normal 0.5-1.3 [facility] Comment on above: Performed By: #### 1 3316453, 4500197 ####[facility] [address] [place] [address] Glucose [Mass/Vol] 255 mg/dL High 55-199 [facility] Comment on above: Result Comment: If t his glucose result represents a fasting glucose, interpretation should refer to the following reference range: 55-99 mg/dL Performed By: #### 1 5347373, 4546804 ####[facility] [address] [place] [address] Potassium [Moles/Vol] 3.8 mmol/L Normal 3.5-5.3 [facility] Comment on above: Performed By: #### 1 5715074, 9631321 ####[facility] [address] [place] [address] Sodium [Moles/Vol] 140 mmol/L Normal 135-145 [facility] Comment on above: Performed By: #### 1 9525565, 1648605 ####[facility] [address] [place] [address] Urea nitrogen [Mass/Vol] 19 mg/dL Normal 5-21 [facility] Comment on above: Performed By: #### 1 8841002, 7291831 ####[facility] [address] [place] [address] Urea nitrogen/Creatinine [Mass ratio] 19 No Units Normal 10-20 [facility] Comment on above: Performed By: #### 1 2335940, 2937603 ####[address] [place] [address] CBC w/ Auto Diffon Erythrocyte distribution width (RBC) [Ratio] 13.3 % Normal 10.9-14.2 [facility] Comment on above: Performed By: #### 2 156152, 1410707 ####[address] [address] Hematocrit (Bld) [Volume fraction] 22.7 % Low 34.0-46.0 [facility] Comment on above: Performed By: #### 2 130693, 8981114 ####[address] [address] Hemoglobin (Bld) [Mass/Vol] 7.8 g/dL Low 12.0-16.0 [facility] Comment on above: Performed By: #### 2 919415, 3191103 ####[address] [address] MCH (RBC) [Entitic mass] 30.6 pg Normal 27.0-34.0 [facility] Comment on above: Performed By: #### 2 158784, 2556295 ####[address] [address] MCHC (RBC) [Mass/Vol] 34.5 g/dL Normal 31.4-36.0 [facility] Comment on above: Performed By: #### 2 318857, 1679178 ####[address] [address] MCV (RBC) [Entitic vol] 88.6 fL Normal 80.0-100.0 F [facility] Comment on above: Performed By: #### 2 614864, 0295083 ####[address] [address] Platelet mean volume (Bld) [Entitic vol] 9.3 fL Normal 6.4-10.8 [facility] Comment on above: Performed By: #### 2 286544, 7691525 ####[facility] [address] [place] [address] Platelets (Bld) [#/Vol] 133.0 E9/L Low 150.0-500.0 [facility] Comment on above: Performed By: #### 2 261540, 3711459 ####[facility] [address] [place] [address] RBC (Bld) [#/Vol] 2.6 E12/L Low 4.3-5.9 [facility] Comment on above: Performed By: #### 2 352274, 5733449 ####[facility] [address] [place] [address] WBC corrected for nucl RBC Auto (Bld) [#/Vol] 8.8 E9/L Normal 4.0-11.0 [facility] Comment on above: Performed By: #### 2 702235, 8442686 ####[facility] [address] [place] [address] CHEMISTRYOrdered By: SYSTEM SYSTEM on 11-27-2022 Anion gap [Moles/Vol] 7 mmol/L Normal 6 - 16 mEq/L F C Remisol Calcium [Mass/Vol] 8.1 mg/dL Low 8.9 - 11. 1 mg/dL [facility] Remisol Chloride [Moles/Vol] 114 mmol/L High 101 - 1 11 mmol/L [facility] Remisol CO2 [Moles/Vol] 23 mmol/L Normal 21 - 31 mmol/L [facility] Remisol Creatinine [Mass/Vol] 1.0 mg/dL Normal 0.5 - 1.3 mg/dL [facility] Remisol GFR/1.73 sq M.predicted among non-blacks MDRD (S/P/Bld) [Vol rate/Area] 61 mL/min/1.73 m2 Normal >=59mL/min/1.7 3 m2 [facility] Chem S Glucose [Mass/Vol] 255 mg/dL High 55 - 199 mg/dL FT Remisol Potassium [Moles/Vol] 3.8 mmol/L Normal 3.5 - 5.3 mmol/L [facility] Remisol Sodium [Moles/Vol] 140 mmol/L Normal 135 - 145 mmol/L [facility] Remisol Urea nitrogen [Mass/Vol] 19 mg/dL Normal 5 - 21 mg/dL [facility] Remisol Urea nitrogen/Creatinine [Mass ratio] 19 mg/mg Normal 10 - 20 [facility] Remisol Capillary Glucose POCon 10-31 Glucose [Mass/Vol] 104 mg/dL High 55-99 [facility] Comment on above: Result Comment: No C overage Given Performed By: #### 2 [id number] ####[facility] [address] [place] [address] Glucose [Mass/Vol] 166 mg/dL High 55-99 [facility] Comment on above: Result Comment: Insu melissa Started Performed By: #### 2 07379098 ####[facility] [address] [place] [address] Glucose [Mass/Vol] 110 mg/dL High 55-99 [facility] Comment on above: Result Comment: No C overage Given Performed By: #### 2 62358577 ####[facility] [address] [place] [address] HEMATOLOGYOrdered By: SYSTEM SYSTEM on 11-27-2022 Basophils/100 [...] HemeAutoSS Monitor Recordon 11-27-2022 Monitor Record [id number]#1.00CD:127 Normal [facility] Monitor Record [id number]#1.00CD:127 Normal [facility] Monitor Record [id number]#1.00CD:127 Normal [facility] Progress Note-Physicianon Progress Note-Physician Normal F [facility] Comment on above: Result Comment: Elec tronically Signed By: Joaquim Noe DO\.br\Date and Time Signed: 11/27/22 20:04 EDT Progress Note-Physician Normal F [facility] Comment on above: Result Comment: Elec tronically Signed By: Soni PADGETT MD\.br\Date and Time Signed: 11/27/22 09:12 EDT eGFRon 11-27-2022 GFR/1.73 sq M.predicted among non-blacks MDRD (S/P/Bld) [Vol rate/Area] 61 mL/min/1.73 m2 Normal >=59 [facility] Comment on above: Order Comment: Order added by Discern Expert. Result Comment: Web Site Designer marquez kidney disease could be indicated at eGFR's of less than 60 mL/min/1.73m2. Kidney failure is indicated at less than 15 mL/min/1.73m2. Performed By: #### 1 0662518, 5571941 ####[facility] [address] [place] [address] Auto Diffon 11-26-2022 Basophils/100 WBC (Bld) 0.1 % Normal 0.0-2.0 [facility] Comment on above: Order Comment: Order Added by Discern Expert. Performed By: #### 2 970305, 9804040 ####[facility] [address] [place] [address] Basophils/Leukocytes Auto (Bld) [Pure # fraction] 0.0 E9/L Normal 0.0-0.2 [facility] Comment on above: Order Comment: Order Added by Discern Expert. Performed By: #### 2 387467, 1965914 ####[facility] [address] [place] [address] Eosinophils/100 WBC (Bld) 0.0 % Normal 0.0-8.0 [facility] Comment on above: Order Comment: Order Added by Discern Expert. Performed By: #### 2 520521, 1287000 ####[facility] [address] [place] [address] Eosinophils/Leukocytes Auto (Bld) [Pure # fraction] 0.0 E9/L Normal 0.0-0.5 [facility] Comment on above: Order Comment: Order Added by Discern Expert. Performed By: #### 2 411666, 9142594 ####[address] [address] Lymphocytes/100 WBC (Bld) 4.8 % Low 14.0-50.0 [facility] Comment on above: Order Comment: Order Added by Discern Expert. Performed By: #### 2 198404, 0833346 ####[address] [address] Lymphocytes/Leukocytes Auto (Bld) [Pure # fraction] 0.4 E9/L Low 1.0-4.0 [facility] Comment on above: Order Comment: Order Added by Discern Expert. Performed By: #### 2 037620, 4715023 ####[address] [address] Monocytes/100 WBC (Bld) 6.9 % Normal 4.0-14.0 [facility] Comment on above: Order Comment: Order Added by Discern Expert. Performed By: #### 2 881600, 3719509 ####[address] [address] Monocytes/Leukocytes Auto (Bld) [Pure # fraction] 0.5 E9/L Normal 0.2-1.0 [facility] Comment on above: Order Comment: Order Added by Discern Expert. Performed By: #### 2 727326, 3954602 ####[address] [address] Neutrophils/100 WBC (Bld) 88.2 % High 36.0-75.0 [facility] Comment on above: Order Comment: Order Added by Discern Expert. Performed By: #### 2 893713, 9535154 ####[address] [place] [address] Neutrophils/Leukocytes Auto (Bld) [Pure # fraction] 6.6 E9/L Normal 2.0-7.5 [facility] Comment on above: Order Comment: Order Added by Discern Expert. Performed By: #### 2 495345, 3208263 ####[facility] [address] [place] [address] BMPon 11-26-2022 Anion gap [Moles/Vol] 7 mmol/L Normal 6-16 [facility] Comment on above: Performed By: #### 1 8264372, 6739183 ####[address] [address] Calcium [Mass/Vol] 7.9 mg/dL Low 8.9-11.1 [facility] Comment on above: Performed By: #### 1 5811450, 9366350 ####[address] [address] Chloride [Moles/Vol] 108 mmol/L Normal 101-111 [facility] Comment on above: Performed By: #### 1 7505475, 1579122 ####[address] [address] CO2 [Moles/Vol] 22 mmol/L Normal 21-31 [facility] Comment on above: Performed By: #### 1 2606583, 6492857 ####[facility] [address] [place] [address] Creatinine [Mass/Vol] 1.3 mg/dL Normal 0.5-1.3 [facility] Comment on above: Performed By: #### 1 6713630, 9048257 ####[facility] [address] [place] [address] Glucose [Mass/Vol] 353 mg/dL High 55-199 [facility] Comment on above: Result Comment: If t his glucose result represents a fasting glucose, interpretation should refer to the following reference range: 55-99 mg/dL Performed By: #### 1 5346982, 1702322 ####[address] [place] [address] Potassium [Moles/Vol] 4.1 mmol/L Normal 3.5-5.3 [facility] Comment on above: Performed By: #### 1 5147962, 2752327 ####[facility] [address] [place] [address] Sodium [Moles/Vol] 133 mmol/L Low 135-145 [facility] Comment on above: Performed By: #### 1 2490740, 5654298 ####[facility] [address] [place] [address] Urea nitrogen [Mass/Vol] 21 mg/dL Normal 5-21 [facility] Comment on above: Performed By: #### 1 6810760, 6727539 ####[facility] [address] [place] [address] Urea nitrogen/Creatinine [Mass ratio] 16 No Units Normal 10-20 [facility] Comment on above: Performed By: #### 1 1042252, 0432820 ####[facility] [address] [place] [address] CBC w/ Auto Diffon 3 Erythrocyte distribution width (RBC) [Ratio] 12.7 % Normal 10.9-14.2 [facility] Comment on above: Performed By: #### 2 139433, 7617288 ####[facility] [address] [place] [address] Hematocrit (Bld) [Volume fraction] 22.2 % Low 34.0-46.0 [facility] Comment on above: Performed By: #### 2 651953, 0943958 ####[facility] [address] [place] [address] Hemoglobin (Bld) [Mass/Vol] 7.6 g/dL Low 12.0-16.0 [facility] Comment on above: Performed By: #### 2 760983, 3194979 ####[facility] [address] [place] [address] MCH (RBC) [Entitic mass] 30.0 pg Normal 27.0-34.0 [facility] Comment on above: Performed By: #### 2 354326, 7219287 ####[address] [address] MCHC (RBC) [Mass/Vol] 34.1 g/dL Normal 31.4-36.0 [facility] Comment on above: Performed By: #### 2 187120, 4930351 ####[place] [place] MCV (RBC) [Entitic vol] 88.1 fL Normal 80.0-100.0 F [facility] Comment on above: Performed By: #### 2 194046, 9148922 ####[address] [address] Platelet mean volume (Bld) [Entitic vol] 8.9 fL Normal 6.4-10.8 [facility] Comment on above: Performed By: #### 2 553562, 7710502 ####[address] [address] Platelets (Bld) [#/Vol] 121.0 E9/L Low 150.0-500.0 [facility] Comment on above: Performed By: #### 2 659491, 8467984 ####[address] [address] RBC (Bld) [#/Vol] 2.5 E12/L Low 4.3-5.9 [facility] Comment on above: Performed By: #### 2 299755, 7775837 ####[address] [address] WBC corrected for nucl RBC Auto (Bld) [#/Vol] 7.5 E9/L Normal 4.0-11.0 [facility] Comment on above: Performed By: #### 2 459865, 5383703 ####[address] [address] CHEMISTRYOrdered By: SYSTEM SYSTEM on 11-26-2022 Anion gap [Moles/Vol] 7 mmol/L Normal 6 - 16 mEq/L [facility] Remisol Calcium [Mass/Vol] 7.9 mg/dL Low 8.9 - 11. 1 mg/dL [facility] Remisol Chloride [Moles/Vol] 108 mmol/L Normal 101 - 1 11 mmol/L [facility] Remisol CO2 [Moles/Vol] 22 mmol/L Normal 21 - 31 mmol/L [facility] Remisol Creatinine [Mass/Vol] 1.3 mg/dL Normal 0.5 - 1.3 mg/dL [facility] Remisol GFR/1.73 sq M.predicted among non-blacks MDRD (S/P/Bld) [Vol rate/Area] 45 mL/min/1.73 m2 Low >=59mL/min/1.7 3 m2 [facility] Chem S Glucose [Mass/Vol] 353 mg/dL High 55 - 199 mg/dL [facility] Remisol Potassium [Moles/Vol] 4.1 mmol/L Normal 3.5 - 5.3 mmol/L [facility] Remisol Sodium [Moles/Vol] 133 mmol/L Low 135 - 145 mmol/L [facility] Remisol Urea nitrogen [Mass/Vol] 21 mg/dL Normal 5 - 21 mg/dL [facility] Remisol Urea nitrogen/Creatinine [Mass ratio] 16 mg/mg Normal 10 - 20 [facility] Remisol Capillary Glucose POCon 10-30 Glucose [Mass/Vol] 184 mg/dL High 55-99 [facility] Comment on above: Result Comment: Fausto CHAUDHARY Performed By: #### 2 [id number] ####[facility] [address] [place] [address] Glucose [Mass/Vol] 231 mg/dL High 55-99 [facility] Comment on above: Performed By: #### 2 [id number] ####[facility] [address] [place] [address] Glucose [Mass/Vol] 248 mg/dL High 55-99 [facility] Comment on above: Result Comment: Fausto CHAUDHARY Performed By: #### 2 [id number] ####[facility] [address] [place] [address] Glucose [Mass/Vol] 299 mg/dL High 55-99 [facility] Comment on above: Result Comment: Fausto rubi RN/ Performed By: #### 2 [id number] ####[facility] [address] [place] [address] Glucose [Mass/Vol] 411 mg/dL High 55-99 [facility] Comment on above: Result Comment: Fausto rubi RN/ Performed By: #### 2 [id number] ####[facility] [address] [place] [address] Glucose [Mass/Vol] 409 mg/dL High 55-99 [facility] Comment on above: Result Comment: Fausto rubi RN/ Performed By: #### 2 [id number] ####[facility] [address] [place] [address] Consent for Anesthesiaon Consent for Anesthesia [id number]#1.00CD:127 Normal [facility] HEMATOLOGYOrdered By: Chrissy Bradford on 11-26-2022 Hematocrit [...] (Bld) [Volume fraction] 23.2 % Low 34.0-46.0 [facility] Comment on above: Performed By: #### 1 [id number] ####[facility] [address] [place] [address] Hemoglobin (Bld) [Mass/Vol] 8.0 g/dL Low 12.0-16.0 [facility] Comment on above: Performed By: #### 1 [id number] ####[facility] [address] [place] [address] Insurance Correspondence Off iceon 11-26-2022 Insurance Correspondence Office [id number]#1.00CD:127 Normal [facility] Interdisciplinary Note - Hardeep e Manageron 11-26-2022 Interdisciplinary Note - Clinical Biostatistician Normal [facility] Comment on above: Result Comment: Elec tronically Signed By: Radha Prabhakar\.br\Date and Time Signed: 11/26/22 11:36 EDT Interdisciplinary Note - Timo n 11-26-2022 Interdisciplinary Note - OT Normal [facility] Interdisciplinary Note - PTo n 11-26-2022 Interdisciplinary Note - PT Normal [facility] IntraOperative Documentson 0 11-26-2022 IntraOperative Documents [id number]#1.00CD:127 Normal [facility] Progress Note-Physicianon Progress Note-Physician Normal [facility] Comment on above: Result Comment: Elec tronically Signed By: MD Martinez Ahmad F\.br\Date and Time Signed: 11/26/22 15:06 EDT Progress Note-Physician Normal [facility] Comment on above: Result Comment: Elec tronically Signed By: MD Martinez Ahmad F\.br\Date and Time Signed: 11/26/22 15:03 EDT Progress Note-Physician Normal [facility] Comment on above: Result Comment: Elec tronically Signed By: Anu MANZANO\.br\Date and Time Signed: 11/26/22 11:10 EDT\.br\Electronically Co-Signed By: Nesha SHANKAR MD\.br\Date and Time Co-Signed: 11/26/22 11:41 EDT RCOon 11-26-2022 # of Units 1 Invalid Interpretation Code [facility] Comment on above: Result Comment: 11/26 10:54 [id number] product ready and called to FaridaN MARVIN at 11/26/2022 10:54:18 EDT by AG. Performed By: #### 1 [id number] ####[address] [place] [address] Date Required 20221126 Invalid Interpretation Code [facility] Comment on above: Performed By: #### 1 6402541 ####[facility] [address] [place] [id number] Order to Transfuse Yes Normal [facility] Comment on above: Performed By: #### 1 [id number] ####[address] [place] [id number] Product Type None Required Invalid Interpretation Code [facility] Comment on above: Performed By: #### 1 [id number] ####[address] [place] [address] eGFRon 11-26-2022 GFR/1.73 sq M.predicted among non-blacks MDRD (S/P/Bld) [Vol rate/Area] 45 mL/min/1.73 m2 Low >=59 [facility] Comment on above: Order Comment: Order added by Discern Expert. Result Comment: Web Site Designer marquez kidney disease could be indicated at eGFR's of less than 60 mL/min/1.73m2. Kidney failure is indicated at less than 15 mL/min/1.73m2. Performed By: #### 1 [id number], 8142589 ####[address] [address] Auto Diffon 11-25-2022 Basophils/100 WBC (Bld) 0.4 % Normal 0.0-2.0 F [facility] Comment on above: Order Comment: Order Added by Discern Expert. Performed By: #### 2 221792, 5174642, 93997746, 9359026, 7808124, 2657054, 7364451 ####[facility] [address] [place] [address] Basophils/Leukocytes Auto (Bld) [Pure # fraction] 0.0 E9/L Normal 0.0-0.2 [facility] Comment on above: Order Comment: Order Added by Discern Expert. Performed By: #### 2 211031, 3642901, 09360884, 0701206, 4275064, 2384646, 1419336 ####[facility] [address] [place] [address] Eosinophils/100 WBC (Bld) 4.1 % Normal 0.0-8.0 [facility] Comment on above: Order Comment: Order Added by Discern Expert. Performed By: #### 2 982921, 8960192, 30789014, 4638087, 7697530, 7353062, 9349501 ####[address] [place] [address] Eosinophils/Leukocytes Auto (Bld) [Pure # fraction] 0.2 E9/L Normal 0.0-0.5 [facility] Comment on above: Order Comment: Order Added by Katherine Expert. Performed By: #### 2 575158, 8314409, 80087044, 8488206, 2423071, 5597501, 4790547 ####[address] [place] [address] Lymphocytes/100 WBC (Bld) 28.6 % Normal 14.0-50.0 [facility] Comment on above: Order Comment: Order Added by Katherine Expert. Performed By: #### 2 521608, 2366137, 92583979, 8358762, 6542034, 3507731, 4406988 ####[facility] [address] [place] [address] Lymphocytes/Leukocytes Auto (Bld) [Pure # fraction] 1.4 E9/L Normal 1.0-4.0 [facility] Comment on above: Order Comment: Order Added by Katherine Expert. Performed By: #### 2 552856, 7622003, 91474058, 0168261, 6949307, 9510856, 0988689 ####[facility] [address] [place] [address] Monocytes/100 WBC (Bld) 13.8 % Normal 4.0-14.0 F [facility] Comment on above: Order Comment: Order Added by Discern Expert. Performed By: #### 2 301694, 4411851, 84108849, 5962877, 5722131, 9477381, 6801425 ####[facility] [address] [place] [address] Monocytes/Leukocytes Auto (Bld) [Pure # fraction] 0.7 E9/L Normal 0.2-1.0 [facility] Comment on above: Order Comment: Order Added by Discern Expert. Performed By: #### 2 403340, 5492229, 46433748, 1483590, 9536806, 3299901, 8395756 ####[facility] [address] [place] [address] Neutrophils/100 WBC (Bld) 53.1 % Normal 36.0-75.0 [facility] Comment on above: Order Comment: Order Added by Katherine Expert. Performed By: #### 2 662567, 8037471, 73993885, 1588322, 9832660, 2192133, 0079056 ####[facility] [address] [place] [address] Neutrophils/Leukocytes Auto (Bld) [Pure # fraction] 2.6 E9/L Normal 2.0-7.5 [facility] Comment on above: Order Comment: Order Added by Katherine Expert. Performed By: #### 2 607079, 8278396, 44300017, 8071431, 3097991, 0797755, 3823376 ####[facility] [address] [place] [address] BMPon 11-25-2022 Anion gap [Moles/Vol] 7 mmol/L Normal 6-16 [facility] Comment on above: Performed By: #### 2 410046, 4488230, 85152543, 6854225, 6656431, 9446359, 7465169 ####[facility] [address] [place] [address] Calcium [Mass/Vol] 8.6 mg/dL Low 8.9-11.1 [facility] Comment on above: Performed By: #### 2 329738, 9706060, 91133344, 9423538, 1890511, 7599717, 2218172 ####[facility] [address] [place] [address] Chloride [Moles/Vol] 114 mmol/L High 101-[address] [facility] Comment on above: Performed By: #### 2 871658, 5891980, 71319000, 5573929, 3324889, 9282363, 5394885 ####[facility] [address] [place] [address] CO2 [Moles/Vol] 24 mmol/L Normal 21-31 [facility] Comment on above: Performed By: #### 2 821146, 2904008, 19915560, 8743111, 7231994, 1786967, 4700507 ####[facility] [address] [place] [address] Creatinine [Mass/Vol] 1.0 mg/dL Normal 0.5-1.3 [facility] Comment on above: Performed By: #### 2 668065, 5528259, 15692401, 4445464, 2680933, 4369599, 4527669 ####[facility] [address] [place] [address] Glucose [Mass/Vol] 98 mg/dL Normal 55-199 [facility] Comment on above: Result Comment: If t his glucose result represents a fasting glucose, interpretation should refer to the following reference range: 55-99 mg/dL Performed By: #### 2 450261, 7347735, 44023136, 8561590, 1410770, 9178160, 8675709 ####[facility] [address] [place] [address] Potassium [Moles/Vol] 4.0 mmol/L Normal 3.5-5.3 [facility] Comment on above: Performed By: #### 2 119632, 8747921, 42749976, 8844389, 8964948, 6119983, 9193041 ####[facility] [address] [place] [address] Sodium [Moles/Vol] 141 mmol/L Normal 135-145 [facility] Comment on above: Performed By: #### 2 097357, 3455358, 66178943, 0341127, 9510900, 7886447, 8313998 ####[facility] [address] [place] [address] Urea nitrogen [Mass/Vol] 13 mg/dL Normal 5-21 [facility] Comment on above: Performed By: #### 2 542104, 4776763, 83341028, 2023900, 7467742, 6919664, 8314213 ####[facility] [address] [place] [address] Urea nitrogen/Creatinine [Mass ratio] 13 No Units Normal 10-20 [facility] Comment on above: Performed By: #### 2 284466, 7075701, 74044167, 5673875, 9638736, 5188899, 8918954 ####[facility] [address] [place] [address] CBC w/ Auto Diffon 3 Erythrocyte distribution width (RBC) [Ratio] 13.1 % Normal 10.9-14.2 [facility] Comment on above: Performed By: #### 2 891475, 0399751, 72724378, 8485825, 4964386, 0963154, 2254559 ####[facility] [address] [place] [address] Hematocrit (Bld) [Volume fraction] 28.1 % Low 34.0-46.0 [facility] Comment on above: Performed By: #### 2 050008, 1051513, 10159528, 3232090, 8496531, 9138608, 0386538 ####[facility] [address] [place] [address] Hemoglobin (Bld) [Mass/Vol] 9.6 g/dL Low 12.0-16.0 [facility] Comment on above: Performed By: #### 2 899125, 9808939, 38241192, 7335109, 1174595, 5800385, 3730026 ####[facility] [address] [place] [address] MCH (RBC) [Entitic mass] 30.3 pg Normal 27.0-34.0 [facility] Comment on above: Performed By: #### 2 106666, 6086803, 70717443, 3745512, 2775449, 8570547, 2185559 ####[facility] [address] [place] [address] MCHC (RBC) [Mass/Vol] 34.0 g/dL Normal 31.4-36.0 [facility] Comment on above: Performed By: #### 2 864921, 8236489, 97989874, 9784479, 7536967, 7722962, 5961058 ####[address] [address] MCV (RBC) [Entitic vol] 89.1 fL Normal 80.0-100.0 F [facility] Comment on above: Performed By: #### 2 797587, 7117288, 00424487, 4588959, 4297561, 7408891, 6806026 ####[address] [place] [address] Platelet mean volume (Bld) [Entitic vol] 8.7 fL Normal 6.4-10.8 [facility] Comment on above: Performed By: #### 2 980132, 5814300, 98747233, 3866245, 9921054, 5403686, 5732183 ####[address] [place] [address] Platelets (Bld) [#/Vol] 91.0 E9/L Low 150.0-500.0 [facility] Comment on above: Result Comment: Humera matthews reviewed by 11/25/2022 07:41:07 EDT.Platelet count verified using smear estimate Performed By: #### 2 253849, 7112109, 92749606, 2174712, 1923220, 9083680, 8185990 ####[facility] [address] [place] [address] RBC (Bld) [#/Vol] 3.2 E12/L Low 4.3-5.9 [facility] Comment on above: Performed By: #### 2 908379, 9011648, 20598329, 7862639, 7535462, 2318693, 7245657 ####[facility] [address] [place] [address] WBC corrected for nucl RBC Auto (Bld) [#/Vol] 4.8 E9/L Normal 4.0-11.0 [facility] Comment on above: Performed By: #### 2 271102, 0142191, 95126730, 8487012, 0863422, 6963327, 5535617 ####[place] [address] CBC w/Indiceson 11-25-2022 Erythrocyte distribution width (RBC) [Ratio] 13.0 % Normal 10.9-14.2 [facility] Comment on above: Performed By: #### 2 790241 ####[place] [address] Hematocrit (Bld) [Volume fraction] 28.2 % Low 34.0-46.0 [facility] Comment on above: Performed By: #### 2 723514 ####[address] [address] Hemoglobin (Bld) [Mass/Vol] 9.2 g/dL Low 12.0-16.0 [facility] Comment on above: Performed By: #### 2 745834 ####[address] [address] MCH (RBC) [Entitic mass] 29.5 pg Normal 27.0-34.0 [facility] Comment on above: Performed By: #### 2 885882 ####[place] [address] MCHC (RBC) [Mass/Vol] 32.7 g/dL Normal 31.4-36.0 [facility] Comment on above: Performed By: #### 2 226830 ####[facility] [address] [place] [address] MCV (RBC) [Entitic vol] 90.4 fL Normal 80.0-100.0 F [facility] Comment on above: Performed By: #### 2 647439 ####[facility] [address] [place] [address] Platelet mean volume (Bld) [Entitic vol] 9.1 fL Normal 6.4-10.8 [facility] Comment on above: Performed By: #### 2 018136 ####[address] [address] Platelets (Bld) [#/Vol] 128.0 E9/L Low 150.0-500.0 [facility] Comment on above: Performed By: #### 2 663856 ####[address] [address] RBC (Bld) [#/Vol] 3.1 E12/L Low 4.3-5.9 [facility] Comment on above: Performed By: #### 2 965031 ####[address] [address] WBC corrected for nucl RBC Auto (Bld) [#/Vol] 11.7 E9/L High 4.0-11.0 [facility] Comment on above: Performed By: #### 2 503907 ####[facility] [address] [place] [address] CHEMISTRYOrdered By: SYSTEM SYSTEM on 11-25-2022 Calcium [...] 10-30 Glucose [Mass/Vol] 127 mg/dL High 55-99 [facility] Comment on above: Result Comment: No C overage Given Performed By: #### 2 53237568 ####[facility] [address] [place] [address] Glucose [Mass/Vol] 88 mg/dL Normal 55-99 [facility] Comment on above: Performed By: #### 2 84108588 ####[facility] [address] [place] [address] Glucose [Mass/Vol] 87 mg/dL Normal 55-99 [facility] Comment on above: Result Comment: Fausto rubi RN/ Performed By: #### 2 57348771 ####[facility] [address] [place] [address] Glucose [Mass/Vol] 98 mg/dL Normal 55-99 [facility] Comment on above: Result Comment: Fausto CHAUDHARY Performed By: #### 2 62186144 ####[facility] [address] [place] [address] Glucose [Mass/Vol] 108 mg/dL High 55-99 [facility] Comment on above: Result Comment: Fausto CHAUDHARY Performed By: #### 2 21344187 ####[facility] [address] [place] [address] Consent for Procedure/Surger yon 11-25-2022 Consent for Procedure/Surgery [id number]#1.00CD:127 Normal [facility] Ferritinon 11-25-2022 Ferritin [Mass/Vol] 51 ng/mL Normal 11-307 [facility] Comment on above: Result Comment: NORM ALS MEN <30 YRS 16-132 ng/mL MEN >30 YRS 8-338 ng/mL WOMEN (PREMEN) 6-104 ng/mL WOMEN (POSTMEN) 12-210 ng/mL Performed By: #### 2 130114, 2780542, 4933585, 0305070, 42021167, 78586590, 6548557, 6297671, 2905229 ####[facility] [address] [place] [address] Folateon 11-25-2022 Folate [Mass/Vol] 5.4 ng/mL Low >=6.7 [facility] Comment on above: Performed By: #### 2 443998, 2316552, 7579412, 7034284, 65898556, 57046649, 9976122, 7448274, 4423100 ####[facility] [address] [place] [address] RxwO0xdw 11-25-2022 HbA1c (Bld) [Mass fraction] 6.3 % High <=5.9 [facility] Comment on above: Performed By: #### 2 549103, 5871327, 837532353, 4272721, 06519866, 8258419, 04002337, 6599246, 2187131, 04194099, 5148371 ####[address] [place] [address] Insurance Correspondence Off iceon 11-25-2022 Insurance Correspondence Office [id number]#1.00CD:127 Normal [facility] Interdisciplinary Note - Hardeep e Manageron 11-25-2022 Interdisciplinary Note - Clinical Biostatistician Normal [facility] Comment on above: Result Comment: Elec tronically Signed By: Radha Prabhakar\.br\Date and Time Signed: 11/25/22 12:03 EDT Ironon 11-25-2022 Iron [Mass/Vol] 42 microgram/dL Normal 35-153 [facility] Comment on above: Order Comment: Iron order added by Discern Rule: gl_ftmc_add_iron_trans . Performed By: #### 2 097518, 2483392, 10322283, 8859096, 5823745, 0562332, 8624502 ####[facility] [address] [place] [address] Iron Saturationon 11-25-2022 Iron binding capacity [Mass/Vol] 260 microgram/dL Normal 250-400 [facility] Comment on above: Performed By: #### 2 670200, 1782953, 26542271, 7536750, 4631694, 5462687, 6649900 ####[address] [place] [address] Iron saturation [Mass fraction] 16 % Low 20-50 [facility] Comment on above: Performed By: #### 2 375228, 6157831, 06476605, 3502365, 4648127, 5513005, 2536415 ####[address] [place] [address] Main OR PACU I Recordon 10-30 Main OR PACU I Record Normal [facility] Main OR Preoperative Recordo n 11-25-2022 Main OR Preoperative Record Normal [facility] Message from Medicareon 10-30 Message from Medicare [id number]#1.00CD:127 Normal [facility] Monitor Recordon 11-25-2022 Monitor Record [id number]#1.00CD:127 Normal [facility] Monitor Record [id number]#1.00CD:127 Normal [facility] Monitor Record [id number]#1.00CD:127 Normal [facility] Monitor Record [id number]#1.00CD:127 Normal [facility] Operative Reporton 3 Operative Report Normal [facility] Comment on above: Result Comment: Elec tronically Signed By: Joaquim Noe DO\.br\Date and Time Signed: 11/25/22 17:00 EDT Outpatient Surgery Discharge Instructionon 11-25-2022 Outpatient Surgery Discharge Instruction Normal [facility] Progress Note-Physicianon Progress Note-Physician [facility] Comment on above: Result Comment: Elec tronically Signed By: Anu MANZANO\.br\Date and Time Signed: 11/25/22 14:33 EDT\.br\Electronically Co-Signed By: Nesha SHANKAR MD\.br\Date and Time Co-Signed: 11/25/22 14:49 EDT Transferrinon 11-25-2022 Transferrin [Mass/Vol] 186 mg/dL Low 200-370 [facility] Comment on above: Order Comment: Trans micheline order added by Discern Rule: gl_ftmc_add_iron_trans . Performed By: #### 2 535010, 0693420, 80775558, 7457740, 1235165, 5987870, 3684997 ####[facility] [address] [place] [address] U Drug Screenon 11-25-2022 Opiates Screen Ql (U) Positive Abnormal Negative Fis [facility] Comment on above: Result Comment: Nega tive Cutoff: <300 ng/mL Performed By: #### 2 784524 ####[facility] [address] [place] [facility] [address] Amphetamines Screen method >1000 ng/mL Ql (U) Negative Normal Negative [facility] Comment on above: Result Comment: Nega tive Cutoff: <1000 ng/mL Performed By: #### 2 486326 ####[facility] [address] [address] Barbiturates Screen Ql (U) Negative Normal Negative [facility] Comment on above: Result Comment: Nega tive Cutoff: <200 ng/mL Performed By: #### 2 732264 ####[facility] [address] [address] Benzodiazepines Ql (U) Negative Normal Negative [facility] Comment on above: Result Comment: Nega tive Cutoff: <200 ng/mL Performed By: #### 2 155604 ####[facility] [address] [address] Cocaine Ql (U) Negative Normal Negative [facility] Comment on above: Result Comment: Nega tive Cutoff: <300 ng/mL Performed By: #### 2 249923 ####[facility] [address] [place] [address] Phencyclidine Screen method >25 ng/mL Ql (U) Negative Normal Negative [facility] Comment on above: Result Comment: Nega tive Cutoff: <25 ng/mLThese drug screen results are to be used for medical (i.e., treatment) purposes only. Unconfirmed drug screening results must not be used for non-medical purposes (e.g., employment testing, legal testing). Performed By: #### 2 228827 ####[facility] [address] [address] Tetrahydrocannabinol Screen method >50 ng/mL Ql (U) Negative Normal Negative [facility] Comment on above: Result Comment: Nega tive Cutoff: <50 ng/mL Performed By: #### 2 713361 ####[facility] [address] [place] [address] UA With Cult Reflexon 2022 Bilirubin Ql (U) Negative Normal Negative [facility] Comment on above: Performed By: #### 1 5675269 ####[facility] [address] [place] [address] Clarity (U) CLEAR Normal Clear [facility] Comment on above: Performed By: #### 1 1209798 ####[address] [address] Color (U) YELLOW Normal Yellow [facility] Comment on above: Performed By: #### 1 9042131 ####[address] [address] Epithelial cells.squamous LM.HPF (Urine sed) [#/Area] 0-2 Normal 0-2 [facility] Comment on above: Performed By: #### 1 0422006 ####[facility] [address] [place] [address] Glucose Test strip (U) [Mass/Vol] Negative Normal Negative [facility] Comment on above: Performed By: #### 1 4469541 ####[facility] [address] [place] [address] Hemoglobin Ql (U) Negative Normal Negative [facility] Comment on above: Performed By: #### 1 8069909 ####[facility] [address] [place] [address] Ketones (U) [Mass/Vol] Negative Normal Negative [facility] Comment on above: Performed By: #### 1 6809092 ####[facility] [address] [place] [address] Pattison.plasma/Pattison. RBC (Bld) [Mass ratio] 0-3 Normal 0-3 [facility] Comment on above: Performed By: #### 1 2170127 ####[facility] [address] [place] [address] Nitrite Ql (U) Negative Normal Negative [facility] Comment on above: Performed By: #### 1 0935267 ####[facility] [address] [place] [address] pH (U) 6.0 [pH] Invalid Interpretation Code 5.0-9.0 [facility] Comment on above: Performed By: #### 1 6718118 ####[facility] [address] [place] [address] Protein (U) [Mass/Vol] Negative Normal Negative [facility] Comment on above: Performed By: #### 1 7993975 ####[address] [place] [address] Specific gravity (U) [Rel density] 1.010 Invalid Interpretation Code 1.005-1.030 [facility] Comment on above: Performed By: #### 1 4331391 ####[address] [address] Type of Urine collection method Clean Catch Normal [facility] Comment on above: Performed By: #### 1 8054092 ####[facility] [address] [place] [address] Urobilinogen Qn (U) 0.2 {Papa'U}/dL Normal 0.0-1.0 [facility] Company Comment on above: Performed By: #### 1 [id number] ####[facility] [address] [place] [address] WBC Auto Ql (U) TRACE Abnormal Negative [facility] Comment on above: Performed By: #### 1 [id number] ####[facility] [address] [place] [address] WBC LM.HPF (Urine sed) [#/Area] 0-5 Normal 0-5 [facility] Comment on above: Performed By: #### 1 [id number] ####[address] [address] URINALYSISOrdered By: David Gasca on 11-25-2022 Bilirubin [...] AM) Normal Negative [facility] UA Auto SS Pattison.plasma/Pattison. RBC (Bld) [Mass ratio] 0-3 /HPF Normal [...] [facility] UA Auto SS Urobilinogen Qn (U) 0.7874193 {Papa'U}/dL Normal 0.0 - 1.0 EU/dL [facility] UA Auto SS WBC Auto Ql (U) Trace *ABN* (11/25/22 3:09 AM) Invalid Interpretation Code Negative [facility] UA Auto SS WBC LM.HPF (Urine sed) [#/Area] 0-5 /HPF Normal 0-5/HPF [facility] UA Auto SS Vit B12on 11-25-2022 Cobalamin (Vitamin B12) [Mass/Vol] 212 pg/mL Normal 50-1500 [facility] Comment on above: Performed By: #### 2 880965, 6762540, 4345766, 7715027, 22630194, 95827564, 4199082, 7590081, 1995050 ####[address] [place] [address] XR Hip 1 View Right + Pelvis on 11-25-2022 XR Hip 1 View Right + Pelvis Normal [facility] eGFRon 11-25-2022 GFR/1.73 sq M.predicted among non-blacks MDRD (S/P/Bld) [Vol rate/Area] 61 mL/min/1.73 m2 Normal >=59 [facility] Comment on above: Order Comment: Order added by Discern Expert. Result Comment: Web Site Designer marquez kidney disease could be indicated at eGFR's of less than 60 mL/min/1.73m2. Kidney failure is indicated at less than 15 mL/min/1.73m2. Performed By: #### 2 557259, 7088645, 96383525, 9803423, 7144512, 2652791, 6481280 ####[address] [place] [address] ABO/Rhon 11-24-2022 ABO/Rh Positive Invalid Interpretation Code [facility] Comment on above: Performed By: #### 1 0664277, 71123786, 5010019, 10825083 ####[address] [place] [address] ABO/Rh History Checkon 11-24 ABO/Rh History Check Verified Hx Blood Type Normal [facility] Comment on above: Performed By: #### 1 4010563, 41824552, 8842721, 32873683 ####[facility] [address] [place] [address] ABSCon 11-24-2022 ABSC Gel Interp Negative Normal [facility] Comment on above: Performed By: #### 1 0876942, 26367681, 8657786, 37931380 ####[facility] [address] [place] [address] Auto Diffon 11-24-2022 Basophils/100 WBC (Bld) 0.3 % Normal 0.0-2.0 F [facility] Comment on above: Order Comment: Order Added by Discern Expert. Performed By: #### 2 632484, 6902860, 696180981, 6469786, 63102720, 6399687, 98401383, 6812034, 2477497, 49604497, 4406191 ####[facility] [address] [place] [address] Basophils/Leukocytes Auto (Bld) [Pure # fraction] 0.0 E9/L Normal 0.0-0.2 [facility] Comment on above: Order Comment: Order Added by Discern Expert. Performed By: #### 2 087190, 6170870, 934824696, 9250259, 11958833, 6652756, 61959064, 0683251, 2934905, 41263548, 2338194 ####[address] [place] [address] Eosinophils/100 WBC (Bld) 3.2 % Normal 0.0-8.0 [facility] Comment on above: Order Comment: Order Added by Discern Expert. Performed By: #### 2 191571, 3524585, 877409632, 8739161, 44019171, 6221043, 07714474, 6206983, 3005356, 49745950, 0460126 ####[address] [place] [address] Eosinophils/Leukocytes Auto (Bld) [Pure # fraction] 0.2 E9/L Normal 0.0-0.5 [facility] Comment on above: Order Comment: Order Added by Discern Expert. Performed By: #### 2 770102, 9048405, 422722554, 7441368, 89444569, 5733893, 20388076, 4317564, 4700095, 71847864, 0468642 ####[facility] [address] [place] [address] Lymphocytes/100 WBC (Bld) 27.3 % Normal 14.0-50.0 [facility] Comment on above: Order Comment: Order Added by Discern Expert. Performed By: #### 2 093654, 3805707, 179953958, 9702227, 14868827, 0956140, 04008868, 2180433, 5839475, 81099263, 2126044 ####[facility] [address] [place] [address] Lymphocytes/Leukocytes Auto (Bld) [Pure # fraction] 1.7 E9/L Normal 1.0-4.0 [facility] Comment on above: Order Comment: Order Added by Discern Expert. Performed By: #### 2 106506, 1748866, 392055794, 8891658, 28277036, 2123086, 13989300, 0260803, 2752019, 35701970, 4558144 ####[address] [place] [address] Monocytes/100 WBC (Bld) 12.1 % Normal 4.0-14.0 [facility] Comment on above: Order Comment: Order Added by Discern Expert. Performed By: #### 2 509866, 2426095, 528206236, 7960576, 55999233, 0287260, 73048229, 7268278, 4417157, 10488614, 8891211 ####[address] [place] [address] Monocytes/Leukocytes Auto (Bld) [Pure # fraction] 0.8 E9/L Normal 0.2-1.0 [facility] Comment on above: Order Comment: Order Added by Discern Expert. Performed By: #### 2 120856, 0161354, 927655400, 5904219, 85129409, 4512522, 51277616, 6564784, 9762213, 22860252, 7146698 ####[facility] [address] [place] [address] Neutrophils/100 WBC (Bld) 57.1 % Normal 36.0-75.0 [facility] Comment on above: Order Comment: Order Added by Discern Expert. Performed By: #### 2 245336, 3637505, 683806556, 3252506, 73290800, 1817793, 87122067, 3889009, 8369341, 42479841, 4192081 ####[facility] [address] [place] [address] Neutrophils/Leukocytes Auto (Bld) [Pure # fraction] 3.7 E9/L Normal 2.0-7.5 [facility] Comment on above: Order Comment: Order Added by Discern Expert. Performed By: #### 2 091880, 1055158, 104810444, 3328477, 99104896, 2063235, 17260476, 1987830, 2894833, 88840793, 2128213 ####[address] [place] [address] BLOOD BANKOrdered By: David Gasca on 11-24-2022 ABO/Rh Interp Positive Invalid Interpretation Code [facility] BB Subsection ABSC Gel Interp Negative (11/24/22 12:57 AM) Normal [facility] BB Subsection BMPon 11-24-2022 Creatinine [Mass/Vol] 1.1 mg/dL Normal 0.5-1.3 [facility] Comment on above: Performed By: #### 2 222118, 6901568, 617234095, 9282548, 68583555, 5502465, 83403403, 6940782, 9850157, 35102701, 2021360 ####[facility] [address] [place] [address] Urea nitrogen [Mass/Vol] 13 mg/dL Normal 5-21 [facility] Comment on above: Performed By: #### 2 055200, 0293482, 432890947, 7307208, 94912175, 6010052, 35255099, 9661300, 3512901, 71079741, 4840796 ####[facility] [address] [place] [address] Urea nitrogen/Creatinine [Mass ratio] 12 No Units Normal 10-20 [facility] Comment on above: Performed By: #### 2 861830, 6844002, 649899966, 7960504, 33693115, 7418276, 80683612, 4775309, 4413461, 77840877, 4887771 ####[facility] [address] [place] [address] Anion gap [Moles/Vol] 9 mmol/L Normal 6-16 [facility] Comment on above: Performed By: #### 2 495500, 3652030, 008474742, 6921173, 87628459, 8314048, 83522133, 0963794, 0210993, 65717670, 9274428 ####[facility] [address] [place] [address] Calcium [Mass/Vol] 9.1 mg/dL Normal 8.9-11.1 [facility] Comment on above: Performed By: #### 2 060611, 9244114, 692828016, 5493029, 63756805, 9489586, 79301164, 7951210, 3837315, 51575059, 8790508 ####[facility] [address] [place] [address] Chloride [Moles/Vol] 111 mmol/L Normal 101-111 [facility] Comment on above: Performed By: #### 2 971220, 7698650, 034557061, 2927963, 68676150, 9739234, 24716723, 0262595, 9938579, 41116430, 2118411 ####[facility] [address] [place] [address] CO2 [Moles/Vol] 24 mmol/L Normal 21-31 [facility] Comment on above: Performed By: #### 2 636232, 7287794, 275434587, 4690624, 46198445, 5761814, 28291402, 4324838, 7813920, 77219449, 2254010 ####[facility] [address] [place] [address] Glucose [Mass/Vol] 183 mg/dL Normal 55-199 [facility] Comment on above: Result Comment: If t his glucose result represents a fasting glucose, interpretation should refer to the following reference range: 55-99 mg/dL Performed By: #### 2 993258, 4950411, 815500357, 9978366, 57233018, 2661466, 84683880, 5151312, 8237269, 02245390, 8138368 ####[facility] [address] [place] [address] Potassium [Moles/Vol] 3.7 mmol/L Normal 3.5-5.3 [facility] Comment on above: Performed By: #### 2 324723, 2432382, 806958304, 3114701, 09298634, 0267923, 90670311, 5517472, 9674293, 98766868, 0111609 ####[address] [place] [address] Sodium [Moles/Vol] 140 mmol/L Normal 135-145 [facility] Comment on above: Performed By: #### 2 613931, 6028020, 808549406, 6606132, 74500225, 0106595, 99787627, 2398265, 1986415, 54393351, 8082270 ####[address] [address] Blood Bank ID#on 11-24-2022 BBID# [id number] Invalid Interpretation Code [facility] Comment on above: Performed By: #### 1 6801968, 48876814, 3975395, 28019048 ####[address] [place] [address] CBC w/ Auto Diffon 3 Erythrocyte distribution width (RBC) [Ratio] 13.4 % Normal 10.9-14.2 [facility] Comment on above: Performed By: #### 2 302681, 2616435, 437759088, 0151651, 03293862, 7007930, 42944587, 7134880, 5946123, 11224865, 2077855 ####[address] [place] [address] Hematocrit (Bld) [Volume fraction] 32.8 % Low 34.0-46.0 [facility] Comment on above: Performed By: #### 2 550643, 0644511, 332543761, 4911082, 58104827, 0641393, 91467939, 0335027, 6333478, 73526782, 7296787 ####[facility] [address] [place] [address] Hemoglobin (Bld) [Mass/Vol] 10.7 g/dL Low 12.0-16.0 [facility] Comment on above: Performed By: #### 2 021592, 9576696, 987692039, 0685199, 45141785, 6773324, 48701514, 4440293, 7730170, 28489930, 2654361 ####[facility] [address] [place] [address] MCH (RBC) [Entitic mass] 29.2 pg Normal 27.0-34.0 [facility] Comment on above: Performed By: #### 2 270411, 0355374, 452945417, 8295596, 04894011, 4250763, 03024179, 0392961, 5552132, 86634074, 2377913 ####[facility] [address] [place] [address] MCHC (RBC) [Mass/Vol] 32.7 g/dL Normal 31.4-36.0 [facility] Comment on above: Performed By: #### 2 308706, 9016746, 433755307, 6881341, 60127574, 4218447, 38397703, 1705113, 9418598, 68004944, 3691324 ####[facility] [address] [place] [address] MCV (RBC) [Entitic vol] 89.2 fL Normal 80.0-100.0 F [facility] Comment on above: Performed By: #### 2 219773, 1445657, 697500358, 7655448, 21701059, 6816925, 53138090, 5291251, 1101441, 47083527, 3985900 ####[facility] [address] [place] [address] Platelet mean volume (Bld) [Entitic vol] 8.8 fL Normal 6.4-10.8 [facility] Comment on above: Performed By: #### 2 701356, 8100137, 542058975, 5707631, 45163893, 6814092, 16706436, 4525467, 8942931, 34695769, 2249302 ####[facility] [address] [place] [address] Platelets (Bld) [#/Vol] 139.0 E9/L Low 150.0-500.0 [facility] Comment on above: Performed By: #### 2 698514, 4664264, 782619714, 4114785, 92230147, 4239644, 11450375, 5397069, 2304410, 91700200, 9357100 ####[facility] [address] [place] [address] RBC (Bld) [#/Vol] 3.7 E12/L Low 4.3-5.9 [facility] Comment on above: Performed By: #### 2 903925, 3503931, 377019063, 9504343, 80029422, 0455410, 36842092, 0595086, 9247201, 86592637, 3908093 ####[facility] [address] [place] [address] WBC corrected for nucl RBC Auto (Bld) [#/Vol] 6.4 E9/L Normal 4.0-11.0 [facility] Comment on above: Performed By: #### 2 040065, 8430332, 639836066, 3928144, 07361357, 1303934, 94367487, 2932206, 0377229, 00412744, 9565690 ####[facility] [address] [place] [address] CHEMISTRYOrdered By: SYSTEM SYSTEM on 11-24-2022 Cobalamin [...] (Bld) [Mass fraction] 6.3 % High <=5.9% [facility] ChemAutoSS COAGULATIONOrdered By: David Gasca on 11-24-2022 aPTT Coag (PPP) [Time] 30.2 s Normal 25.1 - 36.5 second(s) [facility] Auto Coag INR Coag (PPP) [Relative time] 1.0 {INR} Invalid Interpretation Code [facility] Auto Coag PT Coag (PPP) [Time] 11.7 s Normal 9.4 - 1 2.5 second(s) [facility] Auto Coag CT Pelvis w/o Contraston CT Pelvis w/o Contrast Normal [facility] Capillary Glucose POCon 10-30 Glucose [Mass/Vol] 119 mg/dL High 55-99 [facility] Comment on above: Result Comment: Fausto CHAUDHARY Performed By: #### 2 07816942 ####[facility] [address] [place] [address] Glucose [Mass/Vol] 115 mg/dL High 55-99 [facility] Comment on above: Result Comment: Fausto CHAUDHARY Performed By: #### 2 58272388 ####[facility] [address] [place] [address] Glucose [Mass/Vol] 114 mg/dL High 55-99 [facility] Comment on above: Result Comment: Fausto CHAUDHARY Performed By: #### 2 09926874 ####[facility] [address] [place] [address] Consent for Treatmenton 10-30 Consent for Treatment [id number]#1.00CD:127 Normal [facility] Consultation Noteon 11-25-19 Consultation Note Normal [facility] Comment on above: Result Comment: Elec tronically Signed By: Joaquim Noe DO\.br\Date and Time Signed: 11/24/22 17:19 EDT ED Clinical Summaryon 2022 ED Clinical Summary Normal [facility] ED Note-Physicianon 11-25-19 ED Note-Physician Normal [facility] Comment on above: Result Comment: Elec tronically Signed By: Hari Martinez DO\.br\Date and Time Signed: 11/24/22 03:32 EDT ED Patient Education Noteon 11-24-2022 ED Patient Education Note Normal [facility] ED Patient Summaryon 023 ED Patient Summary Normal [facility] ED Traumaon 11-24-2022 ED Trauma [id number]#1.00CD:127 Normal [facility] Ethanolon 11-24-2022 Ethanol [Mass/Vol] mg/dL Normal <=7 [facility] Comment on above: Performed By: #### 2 928435 ####[facility] [address] [place] [address] Free T4on 11-24-2022 Free T4 [Mass/Vol] 1.23 ng/dL Normal 0.58-1.64 [facility] Comment on above: Order Comment: Free T4 added by Discern Rule due to a TSH result of <0.34 or >5.60. Performed By: #### 2 897397, 1234316, 5663504, 1042485, 55906649, 25617188, 0795227, 6759009, 3604117 ####[facility] [address] [place] [address] HEMATOLOGYOrdered By: Kirstin King on 11-24-2022 Reticulocytes/100 RBC (Bld) 0.9 % Normal 0.5 - 1.5 % [facility] HemeAutoSS Comment on above: Result Comment: This Reticulocyte Count Has Been Corrected For Anemia [facility] Albumin [Mass/Vol] 3.6 g/dL Normal 3.3-5.0 [facility] Comment on above: Performed By: #### 2 810081, 2937102, 576093147, 2585462, 97734451, 4480052, 40503781, 4018375, 7765307, 91325309, 6448209 ####[facility] [address] [place] [address] Albumin/Globulin (S) [Mass conc ratio] 1.1 Normal 1.1-2.2 [facility] Comment on above: Performed By: #### 2 876017, 6387784, 302277130, 7182567, 01089093, 6025132, 68483099, 4065325, 6129896, 69472569, 8748690 ####[facility] [address] [place] [address] ALP [Catalytic activity/Vol] 61 Int._Unit/L Normal 21-98 [facility] Comment on above: Performed By: #### 2 388475, 0224371, 220589739, 8392959, 88011901, 3050341, 16263165, 3197813, 1266449, 59056543, 7336730 ####[facility] [address] [place] [address] ALT No additional P-5'-P [Catalytic activity/Vol] 15 Int._Unit/L Normal 6-46 [facility] Comment on above: Performed By: #### 2 321709, 7313033, 616465367, 5830744, 73229138, 5125451, 59011488, 9061449, 9658332, 78506789, 2987305 ####[facility] [address] [place] [address] AST [Catalytic activity/Vol] 19 Int._Unit/L Normal 5-43 [facility] Comment on above: Performed By: #### 2 373289, 2082713, 591606964, 8469064, 64735081, 8550424, 24092243, 3443557, 2202917, 85512211, 4921751 ####[facility] [address] [place] [address] Bilirubin [Mass/Vol] 0.6 mg/dL Normal 0.0-1.[address] [facility] Comment on above: Performed By: #### 2 456716, 7033797, 113954403, 5171700, 24104372, 8106597, 25404077, 9165177, 9887402, 04259326, 3171351 ####[facility] [address] [place] [address] Bilirubin.direct [Mass/Vol] 0.1 mg/dL Normal 0.1-0.4 [facility] Comment on above: Performed By: #### 2 719223, 3587742, 176315333, 0984074, 66999204, 5725061, 79218028, 6666202, 0472250, 22160519, 5192662 ####[facility] [address] [place] [address] Bilirubin.indirect [Mass or moles/Vol] 0.5 mg/dL Normal 0.1-0.9 [facility] Comment on above: Performed By: #### 2 922953, 1964870, 294821670, 3896343, 74269998, 5632316, 86962688, 3540497, 7060287, 98612271, 1954644 ####[facility] [address] [place] [address] Globulin (S) [Mass/Vol] 3.2 g/dL Normal 1.4-4.0 F [facility] Comment on above: Performed By: #### 2 611701, 1043172, 788237632, 0329069, 32541982, 5045219, 08961112, 8513946, 8409971, 82439543, 6079811 ####[facility] [address] [place] [address] Protein [Mass/Vol] 6.8 g/dL Normal 6.0-7.8 [facility] Comment on above: Performed By: #### 2 468394, 5847715, 658614110, 0853704, 63857954, 0579255, 26693342, 8444237, 2319004, 58164672, 1354847 ####[facility] [address] [place] [address] Interdisciplinary Note - Hardeep e Manageron 11-24-2022 Interdisciplinary Note - Clinical Biostatistician Normal [facility] Comment on above: Result Comment: Elec tronically Signed By: Kirstin Meyer.br\Date and Time Signed: 11/24/22 12:23 EDT Ironon 11-24-2022 Iron [Mass/Vol] 29 microgram/dL Low 35-[address] [facility] Comment on above: Performed By: #### 2 657943, 0500047, 4879718, 8769048, 30798507, 04247483, 1181557, 5830956, 3812100 ####[facility] [address] [place] [address] LDHon 11-24-2022 LDH [Catalytic activity/Vol] 158 Int._Unit/L Normal 93-218 [facility] Comment on above: Performed By: #### 2 636281, 0647479, 6327464, 8164954, 63020530, 36798725, 4102271, 4418033, 4204861 ####[facility] [address] [place] [address] Lactic Acidon 11-24-2022 Lactate [Mass/Vol] 1.1 mmol/L Normal 0.5-2.2 [facility] Comment on above: Performed By: #### 2 773155, 7351962, 407332388, 2865661, 26918422, 4731219, 91639717, 1596131, 5605237, 72590310, 4412375 ####[facility] [address] [place] [address] Lipase Levelon 11-24-2022 Lipase [Catalytic activity/Vol] 32 U/L Normal 13-58 [facility] Comment on above: Performed By: #### 2 551594, 5927399, 772690039, 6066638, 27901702, 1686031, 28478826, 0971778, 5475837, 64453808, 0203834 ####[facility] [address] [place] [address] Monitor Recordon 11-24-2022 Monitor Record [id number]#1.00CD:127 Normal [facility] Monitor Record [id number]#1.00CD:127 Normal [facility] Monitor Record [id number]#1.00CD:127 Normal [facility] PT & PTTon 11-24-2022 aPTT Coag (PPP) [Time] 30.2 second(s) Normal 25.1-36.5 [facility] Comment on above: Result Comment: Para meter [...] the same coagulation reagent and instrumentation as [facility]. Currently there are no coagulation studies available worldwide for children to 14 days, and no normal ranges. Heparin therapeutic range (represented by Anti-Factor Xa activity of 0.2 - 0.4 U/mL) corresponds to PTT of 56.6 - 109.0 sec. Performed By: #### 2 653912, 8033972, 514301970, 2656763, 51555789, 7275024, 77006467, 2762831, 6478892, 65303674, 7741657 ####[facility] [address] [place] [address] INR Coag (PPP) [Relative time] 1.0 {INR} Invalid Interpretation Code [facility] Comment on above: Result Comment: INR results are specifically intended to assess patients stabilized on long-term Anticoagulation therapy suggested INR?s ?Less Intensive Anticoagulation? 2.0 ? 3.0Conventional Range 3.0 ? 4.5 Performed By: #### 2 979914, 1460729, 365673494, 1415193, 13947691, 7145007, 81136056, 8128019, 8855120, 61690915, 7372905 ####[facility] [address] [place] [address] PT Coag (PPP) [Time] 11.7 second(s) Normal 9.4-12.5 [facility] Comment on above: Result Comment: 15 d [...] the same coagulation reagent and instrumentation as [facility]. Currently there are no coagulation studies available worldwide for children to 14 days, and no normal ranges. Performed By: #### 2 163246, 0388977, 827523756, 2012297, 61508690, 2491478, 43360840, 1566421, 2030404, 93529782, 0609088 ####[facility] [address] [place] [address] Pre-Arrival Noteon Pre-Arrival Note Normal Alvarenga Kandace [facility] Progress Note-Physicianon Progress Note-Physician Normal F [facility] Comment on above: Result Comment: Elec tronically Signed By: Anu MANZANO\.br\Date and Time Signed: 11/24/22 14:14 EDT\.br\Electronically Co-Signed By: Cordell Grossman DO\.br\Date and Time Co-Signed: 11/24/22 15:36 EDT RAD - Preliminary Cat Scan R eporton 11-24-2022 RAD - Preliminary Cat Scan Report [id number]#1.00CD:127 Normal [facility] Retic Counton 11-24-2022 Reticulocytes/100 RBC (Bld) 0.9 % Normal 0.5-1.5 [facility] Comment on above: Result Comment: This Reticulocyte Count Has Been Corrected For Anemia Performed By: #### 2 348052, 3123248, 9406431, 9946162, 55299050, 52244677, 3722732, 2683264, 6875944 ####[facility] [address] [place] [address] TIBC Calculatedon 11-24-2022 Iron binding capacity [Mass/Vol] 313 microgram/dL Normal 250-400 [facility] Comment on above: Order Comment: Patie nt receiving patient care, will check back later. [id number] 11/24/2022 15:04:45 EDT Performed By: #### 2 412863, 8341234, 0782383, 7662418, 18294092, 70810666, 8806357, 9654839, 6602843 ####[facility] [address] [place] [address] Transferrin [Mass/Vol] 224 mg/dL Normal 200-370 [facility] Comment on above: Order Comment: Patie nt receiving patient care, will check back later. [id number] 11/24/2022 15:04:45 EDT Performed By: #### 2 688921, 0968102, 8218563, 9625730, 82392390, 46986785, 7010407, 6082284, 3690738 ####[facility] [address] [place] [address] TSH With T4fr Reflexon 11-24 TSH Qn 0.25 m[IU]/L Low 0.34-5.60 [facility] Comment on above: Performed By: #### 2 843583, 1628260, 0971510, 0405623, 39867727, 70546786, 2440157, 6816430, 8694858 ####[facility] [address] [place] [address] TSH Qn 0.51 m[IU]/L Normal 0.34-5.60 [facility] Comment on above: Performed By: #### 2 [id number], [id number], [id number], [id number], [id number], [id number], [id number], [id number], [id number], [id number], [id number] ####[facility] [id number] [place] [address] Troponinon 11-24-2022 Troponin I.cardiac [Mass/Vol] 3.50 pg/mL Low 10.10-27.10 [facility] Comment on above: Result Comment: The 95% CI (Confidence Interval) PPV (Positive Predictive Value) for myocardial infarction in females is 38 pg/mL, in males 51 pg/mL. The results should be used in conjunction with clinical conditions of myocardial infarction.(Access High Sensitivity Troponin I Instructions For Use, Cecily Amol, October 2017) Performed By: #### 2 894355, 7177747, 729103290, 9371930, 26076339, 3720163, 28399753, 4996701, 9213825, 96178388, 4658565 ####[facility] [address] [place] [address] XR Chest Single Viewon 11-24 XR Chest Single View Normal Fish er [facility] XR Hip 1 View Right + Pelvis on 11-24-2022 XR Hip 1 View Right + Pelvis Normal [facility] eGFRon 11-24-2022 GFR/1.73 sq M.predicted among non-blacks MDRD (S/P/Bld) [Vol rate/Area] 55 mL/min/1.73 m2 Low >=59 [facility] Comment on above: Order Comment: Order added by Discern Expert. Result Comment: Web Site Designer marquez kidney disease could be indicated at eGFR's of less than 60 mL/min/1.73m2. Kidney failure is indicated at less than 15 mL/min/1.73m2. Performed By: #### 2 154532, 6808859, 365283648, 0848977, 55806538, 4471105, 79353802, 6639809, 6474650, 86785346, 0761625 ####[facility] [address] [place] [address] Auto Diffon 10-02-2022 Basophils/100 WBC (Bld) 0.5 % Normal 0.0-2.0 F [facility] Comment on above: Order Comment: Order Added by Discern Expert. Performed By: #### 2 140128, 4447028, 4880102, 1964565, 02721948, 8129581 ####[facility] [address] [place] [address] Basophils/Leukocytes Auto (Bld) [Pure # fraction] 0.0 E9/L Normal 0.0-0.2 [facility] Comment on above: Order Comment: Order Added by Discern Expert. Performed By: #### 2 197601, 8024680, 3278040, 3556427, 94195819, 0307988 ####[facility] [address] [place] [address] Eosinophils/100 WBC (Bld) 1.2 % Normal 0.0-8.0 [facility] Comment on above: Order Comment: Order Added by Discern Expert. Performed By: #### 2 370155, 9326481, 1281835, 2885069, 39341345, 8263707 ####[facility] [address] [place] [address] Eosinophils/Leukocytes Auto (Bld) [Pure # fraction] 0.1 E9/L Normal 0.0-0.5 [facility] Comment on above: Order Comment: Order Added by Discern Expert. Performed By: #### 2 616399, 7163983, 7301436, 3221993, 74638358, 7338365 ####[facility] [address] [place] [address] Lymphocytes/100 WBC (Bld) 19.9 % Normal 14.0-50.0 [facility] Comment on above: Order Comment: Order Added by Discern Expert. Performed By: #### 2 292549, 9162888, 9080011, 5668082, 15073787, 9238029 ####[place] [address] [place] [address] Lymphocytes/Leukocytes Auto (Bld) [Pure # fraction] 1.5 E9/L Normal 1.0-4.0 [facility] Comment on above: Order Comment: Order Added by Katherine Expert. Performed By: #### 2 726962, 0487004, 0997057, 9523868, 21661741, 3286469 ####[address] [place] [address] Monocytes/100 WBC (Bld) 12.7 % Normal 4.0-14.0 [facility] Comment on above: Order Comment: Order Added by Discern Expert. Performed By: #### 2 632685, 8295435, 4288863, 3100695, 97003064, 1633822 ####[address] [place] [address] Monocytes/Leukocytes Auto (Bld) [Pure # fraction] 1.0 E9/L Normal 0.2-1.0 [facility] Comment on above: Order Comment: Order Added by Katherine Expert. Performed By: #### 2 429784, 0018452, 9064126, 1180294, 42550113, 3686386 ####[address] [place] [address] Neutrophils/100 WBC (Bld) 65.7 % Normal 36.0-75.0 [facility] Comment on above: Order Comment: Order Added by Discern Expert. Performed By: #### 2 415423, 9067071, 9141320, 0464764, 20608476, 4140257 ####[facility] [address] [place] [address] Neutrophils/Leukocytes Auto (Bld) [Pure # fraction] 5.1 E9/L Normal 2.0-7.5 [facility] Comment on above: Order Comment: Order Added by Discern Expert. Performed By: #### 2 952698, 6866084, 1467566, 5446670, 66019114, 3482347 ####[facility] [address] [place] [address] BMPon 10-02-2022 Creatinine [Mass/Vol] 1.1 mg/dL Normal 0.5-1.3 [facility] Comment on above: Performed By: #### 2 765359, 3208327, 4588400, 7078257, 75310087, 4722573 ####[facility] [address] [place] [address] Urea nitrogen [Mass/Vol] 16 mg/dL Normal 5-21 [facility] Comment on above: Performed By: #### 2 278952, 3943102, 0956324, 2146416, 57848630, 9640076 ####[facility] [address] [place] [address] Urea nitrogen/Creatinine [Mass ratio] 14 No Units Normal 10-20 [facility] Comment on above: Performed By: #### 2 845895, 9076369, 5096192, 9463063, 43636494, 6795126 ####[facility] [address] [place] [address] Anion gap [Moles/Vol] 15 mmol/L Normal 6-16 [facility] Comment on above: Performed By: #### 2 857365, 9350374, 7880739, 4568895, 49746270, 0955489 ####[facility] [address] [place] [address] Calcium [Mass/Vol] 9.7 mg/dL Normal 8.9-11.1 [facility] Comment on above: Performed By: #### 2 290044, 8525422, 0296861, 3517883, 74269266, 8701331 ####[facility] [address] [place] [address] Chloride [Moles/Vol] 107 mmol/L Normal 101-111 [facility] Comment on above: Performed By: #### 2 900362, 5141011, 7417568, 4729134, 96748603, 1377784 ####[facility] [address] [place] [address] CO2 [Moles/Vol] 19 mmol/L Low 21-31 [facility] Comment on above: Performed By: #### 2 113065, 1792466, 6734923, 9208118, 16036491, 4552777 ####[facility] [address] [place] [address] Glucose [Mass/Vol] 186 mg/dL Normal 55-199 [facility] Comment on above: Result Comment: If t his glucose result represents a fasting glucose, interpretation should refer to the following reference range: 55-99 mg/dL Performed By: #### 2 572863, 8612739, 4113028, 8051904, 28746882, 2734097 ####[facility] [address] [place] [address] Potassium [Moles/Vol] 3.1 mmol/L Low 3.5-5.3 [facility] Comment on above: Performed By: #### 2 842181, 7430621, 3180922, 9117975, 06709403, 4663167 ####[facility] [address] [place] [address] Sodium [Moles/Vol] 138 mmol/L Normal 135-145 [facility] Comment on above: Performed By: #### 2 914885, 1768872, 0599145, 7164734, 12892347, 1866576 ####[facility] [address] [place] [address] CBC w/ Auto Diffon 3 Erythrocyte distribution width (RBC) [Ratio] 13.4 % Normal 10.9-14.2 [facility] Comment on above: Performed By: #### 2 572132, 9491697, 6814122, 7824189, 18583672, 1260253 ####[address] [place] [address] Hematocrit (Bld) [Volume fraction] 38.1 % Normal 34.0-46.0 [facility] Comment on above: Performed By: #### 2 217120, 0235822, 8453754, 1133117, 57705606, 4434662 ####[address] [address] Hemoglobin (Bld) [Mass/Vol] 12.6 g/dL Normal 12.0-16.0 [facility] Comment on above: Performed By: #### 2 952958, 3713109, 9047120, 2742844, 71535904, 5529046 ####[address] [address] MCH (RBC) [Entitic mass] 29.1 pg Normal 27.0-34.0 [facility] Comment on above: Performed By: #### 2 956661, 8681799, 6470611, 7959907, 27630833, 3108163 ####[facility] [address] [place] [address] MCHC (RBC) [Mass/Vol] 33.0 g/dL Normal 31.4-36.0 [facility] Comment on above: Performed By: #### 2 035322, 3969616, 6754495, 4414717, 61520488, 1272851 ####[address] [place] [address] MCV (RBC) [Entitic vol] 88.3 fL Normal 80.0-100.0 F [facility] Comment on above: Performed By: #### 2 593101, 4367754, 7825429, 9607718, 76504729, 3036954 ####[facility] [address] [place] [address] Platelet mean volume (Bld) [Entitic vol] 8.2 fL Normal 6.4-10.8 [facility] Comment on above: Performed By: #### 2 612490, 2238208, 5004540, 5018082, 02200027, 4970531 ####[facility] [address] [place] [address] Platelets (Bld) [#/Vol] 226.0 E9/L Normal 150.0-500.0 [facility] Comment on above: Performed By: #### 2 553346, 6356670, 2564714, 2556446, 10430202, 7675201 ####[address] [address] RBC (Bld) [#/Vol] 4.3 E12/L Normal 4.3-5.9 [facility] Comment on above: Performed By: #### 2 296329, 4816870, 9712714, 0820915, 31356156, 5605248 ####[facility] [address] [place] [address] WBC corrected for nucl RBC Auto (Bld) [#/Vol] 7.8 E9/L Normal 4.0-11.0 [facility] Comment on above: Performed By: #### 2 627011, 8854985, 3388615, 4275213, 57995995, 7690149 ####[facility] [address] [place] [address] CHEMISTRYOrdered By: SYSTEM SYSTEM on 10-02-2022 Albumin [...] 55 mL/min/1.73 m2 Low >=59mL/min/1.7 3 m2 [facility] Chem S Globulin (S) [Mass/Vol] 3.5 g/dL [...] 138 mmol/L Normal 135 - 145 mmol/L [facility] Remisol Urea nitrogen [Mass/Vol] 16 mg/dL Normal 5 - 21 mg/dL FT Remisol Urea nitrogen/Creatinine [Mass ratio] 14 mg/mg Normal 10 - 20 FT Remisol Consent for Treatmenton Consent for Treatment [id number]#1.00CD:127 Normal [facility] ED Clinical Summaryon 2022 ED Clinical Summary Normal [facility] ED Note-Physicianon 10-03-19 ED Note-Physician Normal [facility] Comment on above: Result Comment: Elec tronically Signed By: Clayton DUVALL, Raul Steel.br\Date and Time Signed: 10/02/22 18:44 EDT ED Patient Education Noteon 10-02-2022 ED Patient Education Note Normal [facility] ED Patient Summaryon 023 ED Patient Summary Normal [facility] HEMATOLOGYOrdered By: SYSTEM SYSTEM on 10-02-2022 Basophils/100 [...] 10-02-2022 Albumin [Mass/Vol] 4.1 g/dL Normal 3.3-5.0 [facility] Comment on above: Performed By: #### 2 824443, 2155946, 6533007, 3991246, 07801070, 2249399 ####[facility] [address] [place] [address] Albumin/Globulin (S) [Mass conc ratio] 1.2 Normal 1.1-2.2 [facility] Comment on above: Performed By: #### 2 512864, 9586536, 3925452, 3516345, 60557661, 4805534 ####[facility] [address] [place] [address] ALP [Catalytic activity/Vol] 67 Int._Unit/L Normal 21-98 [facility] Comment on above: Performed By: #### 2 483270, 9560151, 7438969, 2408008, 87491771, 8712595 ####[place] [address] ALT No additional P-5'-P [Catalytic activity/Vol] 8 Int._Unit/L Normal 6-46 [facility] Comment on above: Performed By: #### 2 085744, 3366660, 0860693, 5709419, 10684893, 2954982 ####[place] [address] AST [Catalytic activity/Vol] 20 Int._Unit/L Normal 5-43 [facility] Comment on above: Performed By: #### 2 373910, 0236513, 2769151, 7396018, 65798470, 1104544 ####[place] [address] Bilirubin [Mass/Vol] 0.7 mg/dL Normal 0.0-1.1 [facility] Comment on above: Performed By: #### 2 722275, 9406680, 1159375, 0146282, 24951388, 7254410 ####[facility] [address] [place] [address] Bilirubin.direct [Mass/Vol] 0.1 mg/dL Normal 0.1-0.4 [facility] Comment on above: Performed By: #### 2 838739, 9195298, 6398344, 1739157, 38340379, 6885045 ####[facility] [address] [place] [address] Bilirubin.indirect [Mass or moles/Vol] 0.6 mg/dL Normal 0.1-0.9 [facility] Comment on above: Performed By: #### 2 087378, 2535667, 9354366, 7671714, 43108538, 2445627 ####[facility] [address] [place] [address] Globulin (S) [Mass/Vol] 3.5 g/dL Normal 1.4-4.0 [facility] Comment on above: Performed By: #### 2 500614, 4253432, 3720689, 4121203, 56015922, 4582407 ####[facility] [address] [place] [address] Protein [Mass/Vol] 7.6 g/dL Normal 6.0-7.8 [facility] Comment on above: Performed By: #### 2 721889, 3443389, 7863845, 0669840, 06426723, 5737086 ####[facility] [address] [place] [address] Lipase Levelon 10-02-2022 Lipase [Catalytic activity/Vol] 41 U/L Normal 13-58 [facility] Comment on above: Performed By: #### 2 281513, 7412856, 2442874, 4918253, 27734424, 4022579 ####[facility] [address] [place] [address] Pre-Arrival Noteon 3 Pre-Arrival Note Normal [facility] eGFRon 10-02-2022 GFR/1.73 sq M.predicted among non-blacks MDRD (S/P/Bld) [Vol rate/Area] 55 mL/min/1.73 m2 Low >=59 [facility] Comment on above: Order Comment: Order added by Discern Expert. Result Comment: Web Site Designer marquez kidney disease could be indicated at eGFR's of less than 60 mL/min/1.73m2. Kidney failure is indicated at less than 15 mL/min/1.73m2. Performed By: #### 2 040862, 0890869, 8543771, 7424387, 03211966, 5885437 ####[facility] [address] [place] [address] EMS Documentationon 09-18-19 EMS Documentation [id number]#1.00CD:127 [facility] CT Head or Brain w/o Contras ton 09-05-2022 CT Head or Brain w/o Contrast [facility] CT Spine Cervical w/o Contra ston 09-05-2022 CT Spine Cervical w/o Contrast [facility] CT Spine Thoracic w/o Contra ston 09-05-2022 CT Spine Thoracic w/o Contrast [facility] Discharge Instructionson Discharge Instructions [id number]#1.00CD:127 [facility] ED Note-Physicianon 09-06-19 ED Note-Physician [facility] Comment on above: Result Comment: Elec tronically Signed By: Vinayak Cardoso PA-C\.br\Date and Time Signed: 09/04/22 23:09 EDT\.br\Electronically Co-Signed By: Earnest Guevara M.D.\.br\Date and Time Co-Signed: 09/05/22 07:27 EDT ED Traumaon 09-05-2022 ED Trauma [id number]#1.00CD:127 [facility] ED Trauma [id number]#1.00CD:127 [facility] EMS Documentationon 09-06-19 EMS Documentation [id number]#1.00CD:127 [facility] Comment on above: Other Comment: under wrong title RAD - Preliminary Cat Scan R eporton 09-05-2022 RAD - Preliminary Cat Scan Report [id number]#1.00CD:127 [facility] ABO/Rhon 09-04-2022 ABO/Rh Positive Invalid Interpretation Code [facility] Comment on above: Performed By: #### 1 6612031, 6632917, 83353863, 24221390 ####[facility] [address] [place] [address] ABO/Rh History Checkon 09-04 ABO/Rh History Check Verified Hx Blood Type Normal [facility] Comment on above: Performed By: #### 1 1161038, 4025431, 43622332, 49721464 ####[address] [address] ABSCon 09-04-2022 ABSC Gel Interp Negative Normal [facility] Comment on above: Performed By: #### 1 2062088, 0784732, 67726614, 12168843 ####[address] [address] Auto Diffon 09-04-2022 Basophils/100 WBC (Bld) 0.2 % Normal 0.0-2.0 [facility] Comment on above: Order Comment: Order Added by Discern Expert. Performed By: #### 1 4412652, 1911378, 5873522, 6408140, 59508379, 8702506, 6585668, 9183114, 6560849 ####[address] [address] Basophils/Leukocytes Auto (Bld) [Pure # fraction] 0.0 E9/L Normal 0.0-0.2 [facility] Comment on above: Order Comment: Order Added by Discern Expert. Performed By: #### 1 2285860, 0528681, 2077824, 9311175, 11074363, 1237092, 4986406, 2488322, 8365796 ####[address] [place] [address] Eosinophils/100 WBC (Bld) 2.0 % Normal 0.0-8.0 [facility] Comment on above: Order Comment: Order Added by Discern Expert. Performed By: #### 1 2099191, 8801729, 1941425, 9598608, 17375712, 5334529, 4762640, 1480488, 3979815 ####[facility] [address] [place] [address] Eosinophils/Leukocytes Auto (Bld) [Pure # fraction] 0.1 E9/L Normal 0.0-0.5 [facility] Comment on above: Order Comment: Order Added by Discern Expert. Performed By: #### 1 8606066, 5442993, 6251644, 4310617, 35121959, 8440595, 8792175, 0430702, 6787208 ####[address] [place] [address] Lymphocytes/100 WBC (Bld) 19.6 % Normal 14.0-50.0 [facility] Comment on above: Order Comment: Order Added by Discern Expert. Performed By: #### 1 7643076, 1131426, 6444229, 3502280, 51729062, 8719559, 9067043, 6101387, 8054307 ####[address] [place] [address] Lymphocytes/Leukocytes Auto (Bld) [Pure # fraction] 1.2 E9/L Normal 1.0-4.0 [facility] Comment on above: Order Comment: Order Added by Discern Expert. Performed By: #### 1 7948357, 4700318, 9819036, 2180982, 23306120, 7377550, 7787701, 2913831, 5454695 ####[address] [place] [address] Monocytes/100 WBC (Bld) 11.2 % Normal 4.0-14.0 [facility] Comment on above: Order Comment: Order Added by Discern Expert. Performed By: #### 1 6600583, 9934533, 6615466, 6640348, 40651949, 7117922, 6099496, 0056309, 1394980 ####[address] [place] [address] Monocytes/Leukocytes Auto (Bld) [Pure # fraction] 0.7 E9/L Normal 0.2-1.0 [facility] Comment on above: Order Comment: Order Added by Discern Expert. Performed By: #### 1 1055762, 4415317, 7811808, 5022771, 84311321, 1628210, 4640117, 3104104, 1634510 ####[facility] [address] [place] [address] Neutrophils/100 WBC (Bld) 67.0 % Normal 36.0-75.0 [facility] Comment on above: Order Comment: Order Added by Discern Expert. Performed By: #### 1 7982605, 7250760, 5292459, 6160944, 62015360, 2481172, 5200509, 1392011, 6639541 ####[facility] [address] [place] [address] Neutrophils/Leukocytes Auto (Bld) [Pure # fraction] 4.0 E9/L Normal 2.0-7.5 [facility] Comment on above: Order Comment: Order Added by Discern Expert. Performed By: #### 1 5575682, 9732624, 5161937, 3072834, 76995789, 1334061, 9402616, 9043882, 6400502 ####[facility] [address] [place] [address] BLOOD BANKOrdered By: Jose Martin Brar on 09-04-2022 ABO/Rh Interp Positive Invalid Interpretation Code [facility] BB Subsection ABSC Gel Interp Negative (09/04/22 4:10 PM) Normal [facility] BB Subsection BMPon 09-04-2022 Creatinine [Mass/Vol] 0.9 mg/dL Normal 0.5-1.3 [facility] Comment on above: Performed By: #### 1 1317306, 5635066, 5598031, 6280377, 82411128, 4922442, 3037158, 7683850, 5923097 ####[facility] [address] [place] [address] Urea nitrogen [Mass/Vol] 9 mg/dL Normal 5-21 [facility] Comment on above: Performed By: #### 1 7267451, 0516300, 8925399, 1200815, 62542343, 3050564, 6690171, 7918429, 9119444 ####[facility] [address] [place] [address] Urea nitrogen/Creatinine [Mass ratio] 10 No Units Normal 10-20 [facility] Comment on above: Performed By: #### 1 0469829, 6822754, 9523661, 5360476, 68409528, 8727996, 2773811, 0035055, 1005290 ####[facility] [address] [place] [address] Anion gap [Moles/Vol] 11 mmol/L Normal 6-16 [facility] Comment on above: Performed By: #### 1 2777372, 5293515, 6035834, 0754344, 38815602, 7757701, 4819489, 7752116, 1706032 ####[facility] [address] [place] [address] Calcium [Mass/Vol] 9.0 mg/dL Normal 8.9-11.1 [facility] Comment on above: Performed By: #### 1 0961555, 4204992, 2322992, 3838903, 07880266, 8005295, 7571620, 0770499, 7887354 ####[facility] [address] [place] [address] Chloride [Moles/Vol] 112 mmol/L High 101-111 [facility] Comment on above: Performed By: #### 1 0435526, 3136939, 5356542, 6421735, 62807563, 5847753, 8942397, 8174114, 3829467 ####[facility] [address] [place] [address] CO2 [Moles/Vol] 20 mmol/L Low 21-31 [facility] Comment on above: Performed By: #### 1 6452356, 7404950, 8102626, 4244460, 25801449, 1378709, 6033510, 9814813, 2838306 ####[facility] [address] [place] [address] Glucose [Mass/Vol] 237 mg/dL High 55-199 [facility] Comment on above: Result Comment: If t his glucose result represents a fasting glucose, interpretation should refer to the following reference range: 55-99 mg/dL Performed By: #### 1 5456161, 2809551, 9713934, 9495124, 14296818, 0128500, 9418908, 1457851, 5002982 ####[facility] [address] [place] [address] Potassium [Moles/Vol] 3.2 mmol/L Low 3.5-5.3 [facility] Comment on above: Performed By: #### 1 6868504, 4631613, 2059988, 9177137, 88995550, 8146536, 5642206, 5836860, 5148719 ####[facility] [address] [place] [address] Sodium [Moles/Vol] 140 mmol/L Normal 135-145 [facility] Comment on above: Performed By: #### 1 1071987, 9531649, 4032491, 5267038, 54805812, 3841727, 9342691, 8358592, 6610865 ####[facility] [address] [place] [address] Blood Bank ID#on 09-04-2022 BBID# [id number] Invalid Interpretation Code [facility] Comment on above: Performed By: #### 1 1742202, 3432795, 37595010, 75696262 ####[facility] [address] [place] [address] CBC w/ Auto Diffon 3 Erythrocyte distribution width (RBC) [Ratio] 13.4 % Normal 10.9-14.2 [facility] Comment on above: Performed By: #### 1 5731405, 6727217, 0694510, 5014257, 19484887, 7543353, 0524302, 6835121, 0480458 ####[place] [address] Hematocrit (Bld) [Volume fraction] 35.0 % Normal 34.0-46.0 [facility] Comment on above: Performed By: #### 1 0123335, 0976456, 9737867, 9213907, 88540737, 1418766, 9975519, 7822568, 9518624 ####[place] [address] Hemoglobin (Bld) [Mass/Vol] 11.5 g/dL Low 12.0-16.0 [facility] Comment on above: Performed By: #### 1 7476859, 0418178, 0483945, 7836908, 94104338, 7129937, 8199019, 4821381, 4368430 ####[place] [address] MCH (RBC) [Entitic mass] 29.2 pg Normal 27.0-34.0 [facility] Comment on above: Performed By: #### 1 1152824, 0297352, 3796314, 3531857, 15587271, 0330479, 5073080, 0610946, 9608715 ####[place] [address] MCHC (RBC) [Mass/Vol] 33.0 g/dL Normal 31.4-36.0 [facility] Comment on above: Performed By: #### 1 3872579, 8523652, 2915956, 7411170, 19089748, 5231823, 7767789, 8634983, 4103394 ####[place] [address] MCV (RBC) [Entitic vol] 88.4 fL Normal 80.0-100.0 F [facility] Comment on above: Performed By: #### 1 5673085, 2128765, 4163945, 5271747, 31615177, 4292227, 2640246, 9306226, 2680201 ####[place] [address] Platelet mean volume (Bld) [Entitic vol] 9.2 fL Normal 6.4-10.8 [facility] Comment on above: Performed By: #### 1 9913876, 1418798, 1179130, 3057945, 99034399, 8197595, 9747588, 4127928, 5465684 ####[facility] [address] [place] [address] Platelets (Bld) [#/Vol] 148.0 E9/L Low 150.0-500.0 [facility] Comment on above: Performed By: #### 1 9292950, 7624372, 7415892, 2941636, 53812355, 5581360, 3542573, 4591005, 5682884 ####[facility] [address] [place] [address] RBC (Bld) [#/Vol] 4.0 E12/L Low 4.3-5.9 [facility] Comment on above: Performed By: #### 1 4748878, 6136989, 0903254, 0381439, 31788408, 2054203, 6593705, 9422404, 5000615 ####[facility] [address] [place] [address] WBC corrected for nucl RBC Auto (Bld) [#/Vol] 6.0 E9/L Normal 4.0-11.0 [facility] Comment on above: Performed By: #### 1 8997620, 7377494, 0325922, 7838477, 52391980, 9154572, 3965454, 7320052, 1475674 ####[facility] [address] [place] [id number] CHEMISTRYOrdered By: Lab ROP User on 09-04-2022 Glucose [Mass/Vol] 241 mg/dL High 55 - 99 mg/dL [facility] C POC Subsection Comment on above: Result Comment: Fausto rubi RN/ POC Device SN [id number] Invalid Interpretation Code [facility] POC Subsection POC User ID [id number] Invalid Interpretation Code [facility] POC Subsection POC Username ALEKSANDAR KING Invalid Interpretation Code [facility] POC Subsection CHEMISTRYOrdered By: SYSTEM SYSTEM on [...] 70 mL/min/1.73 m2 Normal >=59mL/min/1.7 3 m2 [facility] Chem S Globulin (S) [Mass/Vol] 3.3 g/dL [...] 28.8 s Normal 25.1 - 36.5 second(s) [facility] Auto Coag INR Coag (PPP) [Relative time] 1.1 {INR} Invalid Interpretation Code FT Auto Coag PT Coag (PPP) [Time] 12.0 s Normal 9.4 - 1 2.5 second(s) [facility] Auto Coag CT Abdomen/Pelvis w/o Contra ston 09-04-2022 CT Abdomen/Pelvis w/o Contrast Normal [facility] CT Chest w/o Contraston CT Chest w/o Contrast Normal [facility] CT Head or Brain w/o Contras ton 09-04-2022 CT Head or Brain w/o Contrast Normal [facility] CT Spine Cervical w/o Contra ston 09-04-2022 CT Spine Cervical w/o Contrast Normal [facility] Capillary Glucose POCon Glucose [Mass/Vol] 241 mg/dL High 55-99 [facility] Comment on above: Result Comment: Fausto rubi RN/ Performed By: #### 2 [id number] ####[facility] [address] [place] [address] Consent for Treatmenton Consent for Treatment [id number]:127 Normal [facility] Discharge Instructionson Discharge Instructions [id number]#[id number]:127 Normal [facility] ED Clinical Summaryon 2022 ED Clinical Summary Normal [facility] ED Clinical Summary Normal [facility] ED Note-Physicianon 09-05-19 ED Note-Physician Normal [facility] Comment on above: Result Comment: Elec tronically Signed By: Hari Martinez DO.br\Date and Time Signed: 09/04/22 21:27 EDT ED Patient Education Noteon 09-04-2022 ED Patient Education Note Normal [facility] ED Patient Education Note Normal [facility] ED Patient Summaryon 023 ED Patient Summary Normal [facility] ED Patient Summary Normal [facility] Ethanolon 09-04-2022 Ethanol [Mass/Vol] mg/dL Normal <=7 [facility] Comment on above: Performed By: #### 2 [id number] ####[facility] [address] [place] [address] HEMATOLOGYOrdered By: SYSTEM SYSTEM on 09-04-2022 Basophils/100 [...] 09-04-2022 Albumin [Mass/Vol] 3.6 g/dL Normal 3.3-5.0 [facility] Comment on above: Performed By: #### 1 0428442, 6949041, 1932748, 7586444, 36751720, 5826503, 8471783, 5760074, 3722301 ####[facility] [address] [place] [address] Albumin/Globulin (S) [Mass conc ratio] 1.1 Normal 1.1-2.2 [facility] Comment on above: Performed By: #### 1 8320397, 7893512, 6585746, 8123706, 41414028, 7158012, 7438914, 0194929, 1517622 ####[address] [place] [address] ALP [Catalytic activity/Vol] 75 Int._Unit/L Normal 21-98 [facility] Comment on above: Performed By: #### 1 2125764, 9781388, 5837907, 3819436, 97465791, 2814068, 7247665, 5116888, 1064030 ####[facility] [address] [place] [address] ALT No additional P-5'-P [Catalytic activity/Vol] 14 Int._Unit/L Normal 6-46 [facility] Comment on above: Performed By: #### 1 2560847, 9773208, 6577630, 9923571, 05807988, 3662787, 7891598, 8645800, 4354994 ####[address] [place] [address] AST [Catalytic activity/Vol] 16 Int._Unit/L Normal 5-43 [facility] Comment on above: Performed By: #### 1 7706181, 8053803, 5648638, 6379521, 75732807, 9168389, 4295914, 3484274, 2032764 ####[facility] [address] [place] [address] Bilirubin [Mass/Vol] 0.6 mg/dL Normal 0.0-1.1 [facility] Comment on above: Performed By: #### 1 7373174, 8404403, 7612248, 2410473, 83059326, 7499285, 0170069, 3631496, 6210441 ####[address] [place] [address] Bilirubin.direct [Mass/Vol] 0.2 mg/dL Normal 0.1-0.4 [facility] Comment on above: Performed By: #### 1 3555624, 8507147, 2025987, 0329375, 27082509, 7667035, 8643059, 2263873, 0762837 ####[address] [place] [address] Bilirubin.indirect [Mass or moles/Vol] 0.4 mg/dL Normal 0.1-0.9 [facility] Comment on above: Performed By: #### 1 2731365, 1427446, 5875812, 2796422, 17177658, 7288489, 0889179, 6054543, 6984615 ####[address] [address] Globulin (S) [Mass/Vol] 3.3 g/dL Normal 1.4-4.0 [facility] Comment on above: Performed By: #### 1 0306817, 5461993, 4429159, 1968454, 25975994, 4249614, 9004922, 5584861, 7068363 ####[address] [place] [address] Protein [Mass/Vol] 6.9 g/dL Normal 6.0-7.8 [facility] Comment on above: Performed By: #### 1 8387126, 2024413, 2802561, 4914457, 58558563, 1882922, 5306443, 4735468, 6202623 ####[address] [place] [address] Lactic Acidon 09-04-2022 Lactate [Mass/Vol] 1.7 mmol/L Normal 0.5-2.2 [facility] Comment on above: Performed By: #### 1 7754141, 8356273, 4330226, 9438455, 71032193, 6928387, 9335884, 3704421, 6460364 ####[facility] [address] [place] [address] Lipase Levelon 09-04-2022 Lipase [Catalytic activity/Vol] 40 U/L Normal 13-58 [facility] Comment on above: Performed By: #### 1 0060575, 5007682, 4724154, 3016165, 54882691, 6275825, 7683175, 4611085, 1691978 ####[facility] [address] [place] [address] PT & PTTon 09-04-2022 aPTT Coag (PPP) [Time] 28.8 second(s) Normal 25.1-36.5 [facility] Comment on above: Result Comment: Para meter [...] the same coagulation reagent and instrumentation as [facility]. Currently there are no coagulation studies available worldwide for children to 14 days, and no normal ranges. Heparin therapeutic range (represented by Anti-Factor Xa activity of 0.2 - 0.4 U/mL) corresponds to PTT of 56.6 - 109.0 sec. Performed By: #### 1 0188057, 9495164, 4917089, 7652183, 74548799, 0491690, 2976012, 0275515, 2050894 ####[facility] [address] [place] [address] INR Coag (PPP) [Relative time] 1.1 {INR} Invalid Interpretation Code [facility] Comment on above: Result Comment: INR results are specifically intended to assess patients stabilized on long-term Anticoagulation therapy suggested INR?s ?Less Intensive Anticoagulation? 2.0 ? 3.0Conventional Range 3.0 ? 4.5 Performed By: #### 1 7902022, 6823475, 4869693, 1529391, 18767435, 7307479, 6683070, 1152598, 9640434 ####[facility] [address] [place] [address] PT Coag (PPP) [Time] 12.0 second(s) Normal 9.4-12.5 [facility] Comment on above: Result Comment: 15 d [...] the same coagulation reagent and instrumentation as [facility]. Currently there are no coagulation studies available worldwide for children to 14 days, and no normal ranges. Performed By: #### 1 3229193, 3334971, 0172945, 7989486, 42203818, 2426607, 8654752, 0563331, 5426507 ####[facility] [address] [place] [address] Troponinon 09-04-2022 Troponin I.cardiac [Mass/Vol] 3.20 pg/mL Low 10.10-27.10 [facility] Comment on above: Result Comment: The 95% CI (Confidence Interval) PPV (Positive Predictive Value) for myocardial infarction in females is 38 pg/mL, in males 51 pg/mL. The results should be used in conjunction with clinical conditions of myocardial infarction.(Access High Sensitivity Troponin I Instructions For Use, Cecily Webroot, October 2017) Performed By: #### 1 7131389, 2780558, 2127957, 4818625, 14610155, 8556607, 0706007, 6580097, 2827404 ####[facility] [address] [place] [address] XR Hip 2-3 Views Left + Pelv sundeep 09-04-2022 XR Hip 2-3 Views Left + Pelvis Normal [facility] XR Shoulder Complete Lefton 09-04-2022 XR Shoulder Complete Left Normal [facility] eGFRon 09-04-2022 GFR/1.73 sq M.predicted among non-blacks MDRD (S/P/Bld) [Vol rate/Area] 70 mL/min/1.73 m2 Normal >=59 [facility] Comment on above: Order Comment: Order added by Discern Expert. Result Comment: Web Site Designer marquez kidney disease could be indicated at eGFR's of less than 60 mL/min/1.73m2. Kidney failure is indicated at less than 15 mL/min/1.73m2. Performed By: #### 1 3604567, 7899897, 9138750, 1391794, 67446721, 8219199, 4409467, 0871478, 1791224 ####[facility] [address] [place] [address] Auto Diffon 08-09-2022 Basophils/100 WBC (Bld) 0.4 % Normal 0.0-2.0 F [facility] Comment on above: Order Comment: Order Added by Discern Expert. Performed By: #### 2 998389, 8741972, 3563138, 20937097, 1606776, 2268716, 5820692, 46124202 ####[facility] [address] [place] [address] Basophils/Leukocytes Auto (Bld) [Pure # fraction] 0.0 E9/L Normal 0.0-0.2 [facility] Comment on above: Order Comment: Order Added by Discern Expert. Performed By: #### 2 821429, 0499363, 2599245, 71691423, 1327963, 0952455, 3189096, 73425945 ####[address] [place] [address] Eosinophils/100 WBC (Bld) 2.8 % Normal 0.0-8.0 [facility] Comment on above: Order Comment: Order Added by Discern Expert. Performed By: #### 2 495033, 8868963, 0077033, 37583510, 7837755, 6869309, 9368775, 53508672 ####[address] [address] Eosinophils/Leukocytes Auto (Bld) [Pure # fraction] 0.1 E9/L Normal 0.0-0.5 [facility] Comment on above: Order Comment: Order Added by Discern Expert. Performed By: #### 2 277782, 9194330, 6846028, 49784369, 7373824, 5802898, 5229991, 90387017 ####[address] [address] Lymphocytes/100 WBC (Bld) 26.3 % Normal 14.0-50.0 [facility] Comment on above: Order Comment: Order Added by Discern Expert. Performed By: #### 2 894627, 3637192, 5915682, 76738749, 7414755, 2166768, 3649811, 14142271 ####[address] [address] Lymphocytes/Leukocytes Auto (Bld) [Pure # fraction] 1.3 E9/L Normal 1.0-4.0 [facility] Comment on above: Order Comment: Order Added by Discern Expert. Performed By: #### 2 180668, 1672136, 3521169, 49467666, 7751952, 3849467, 4557748, 76368738 ####[address] [address] Monocytes/100 WBC (Bld) 10.8 % Normal 4.0-14.0 [facility] Comment on above: Order Comment: Order Added by Discern Expert. Performed By: #### 2 033095, 3345533, 7098409, 72396507, 8374845, 8016445, 5906167, 18799986 ####[facility] [address] [place] [address] Monocytes/Leukocytes Auto (Bld) [Pure # fraction] 0.5 E9/L Normal 0.2-1.0 [facility] Comment on above: Order Comment: Order Added by Discern Expert. Performed By: #### 2 611357, 0223519, 7529741, 54522921, 1069277, 9544082, 7490169, 61702829 ####[address] [place] [address] Neutrophils/100 WBC (Bld) 59.7 % Normal 36.0-75.0 [facility] Comment on above: Order Comment: Order Added by Discern Expert. Performed By: #### 2 453361, 3405752, 8789571, 35909704, 0332536, 0497357, 5210559, 63866886 ####[facility] [address] [place] [address] Neutrophils/Leukocytes Auto (Bld) [Pure # fraction] 2.9 E9/L Normal 2.0-7.5 [facility] Comment on above: Order Comment: Order Added by Discern Expert. Performed By: #### 2 334547, 8317723, 0766125, 92888789, 0070354, 0373841, 0529094, 33251712 ####[facility] [address] [place] [address] BMP 08-09-2022 Creatinine [Mass/Vol] 1.0 mg/dL Normal 0.5-1.3 [facility] Comment on above: Performed By: #### 2 226278, 7014232, 5029325, 04945200, 8501927, 3869309, 3165299, 02639561 ####[facility] [address] [place] [address] Urea nitrogen [Mass/Vol] 12 mg/dL Normal 5-21 [facility] Comment on above: Performed By: #### 2 336074, 9592450, 5070607, 71668217, 9451334, 0447488, 7451399, 46295761 ####[facility] [address] [place] [address] Urea nitrogen/Creatinine [Mass ratio] 12 No Units Normal 10-20 [facility] Comment on above: Performed By: #### 2 268424, 1237174, 4117761, 93256502, 4972505, 7207103, 8889596, 97721066 ####[facility] [address] [place] [address] Anion gap [Moles/Vol] 13 mmol/L Normal 6-16 [facility] Comment on above: Performed By: #### 2 445066, 9530938, 7880450, 22735157, 4148682, 6363137, 6366798, 04316639 ####[facility] [address] [place] [address] Calcium [Mass/Vol] 9.1 mg/dL Normal 8.9-11.1 [facility] Comment on above: Performed By: #### 2 109835, 2304570, 3519652, 25803469, 0529710, 2115313, 5370952, 18123288 ####[facility] [address] [place] [address] Chloride [Moles/Vol] 107 mmol/L Normal 101-111 [facility] Comment on above: Performed By: #### 2 385922, 1600042, 6144146, 75783921, 7584195, 0852123, 8805259, 06339668 ####[facility] [address] [place] [address] CO2 [Moles/Vol] 22 mmol/L Normal 21-31 [facility] Comment on above: Performed By: #### 2 226715, 0118560, 0538405, 61166266, 9238689, 8744283, 0362470, 96921285 ####[facility] [address] [place] [address] Glucose [Mass/Vol] 203 mg/dL High 55-199 [facility] Comment on above: Result Comment: If t his glucose result represents a fasting glucose, interpretation should refer to the following reference range: 55-99 mg/dL Performed By: #### 2 426585, 7344727, 8979515, 61028998, 1030653, 6736286, 2744081, 09554550 ####[facility] [address] [place] [address] Potassium [Moles/Vol] 3.7 mmol/L Normal 3.5-5.3 [facility] Comment on above: Performed By: #### 2 255770, 1276657, 5840426, 81148486, 0276335, 2941043, 4961828, 46457660 ####[facility] [address] [place] [address] Sodium [Moles/Vol] 138 mmol/L Normal 135-145 [facility] Comment on above: Performed By: #### 2 708396, 0707564, 0434883, 64111889, 4546573, 2073115, 9430863, 63865998 ####[address] [place] [address] CBC w/ Auto Diffon 3 Erythrocyte distribution width (RBC) [Ratio] 13.7 % Normal 10.9-14.2 [facility] Comment on above: Performed By: #### 2 579685, 6326156, 5927642, 41616498, 0998143, 5292539, 2444890, 77434637 ####[address] [place] [address] Hematocrit (Bld) [Volume fraction] 38.2 % Normal 34.0-46.0 [facility] Comment on above: Performed By: #### 2 177933, 2436735, 6480519, 41397302, 5333139, 0095686, 9355437, 67148442 ####[facility] [address] [place] [address] Hemoglobin (Bld) [Mass/Vol] 12.1 g/dL Normal 12.0-16.0 [facility] Comment on above: Performed By: #### 2 945381, 3817031, 0193241, 28252391, 6026633, 7146876, 6068945, 30430598 ####[facility] [address] [place] [address] MCH (RBC) [Entitic mass] 28.9 pg Normal 27.0-34.0 [facility] Comment on above: Performed By: #### 2 093755, 4816696, 6087191, 20931664, 2362730, 9211358, 9366482, 30555704 ####[facility] [address] [place] [address] MCHC (RBC) [Mass/Vol] 31.6 g/dL Normal 31.4-36.0 [facility] Comment on above: Performed By: #### 2 048926, 6908828, 0878791, 81233969, 2393867, 9361658, 3477166, 10773557 ####[address] [address] MCV (RBC) [Entitic vol] 91.4 fL Normal 80.0-100.0 F [facility] Comment on above: Performed By: #### 2 635795, 2949964, 7109431, 86320979, 5263240, 0691241, 6096858, 28928303 ####[facility] [address] [place] [address] Platelet mean volume (Bld) [Entitic vol] 8.2 fL Normal 6.4-10.8 [facility] Comment on above: Performed By: #### 2 576099, 6099567, 2187197, 13731796, 9484744, 0471332, 2612041, 83853814 ####[address] [address] Platelets (Bld) [#/Vol] 141.0 E9/L Low 150.0-500.0 [facility] Comment on above: Performed By: #### 2 534246, 0694919, 3061325, 12900749, 0946553, 3257002, 6364446, 22082544 ####[facility] [address] [place] [address] RBC (Bld) [#/Vol] 4.2 E12/L Low 4.3-5.9 [facility] Comment on above: Performed By: #### 2 311375, 9010275, 6593054, 60430505, 7653008, 9055819, 5080170, 88030331 ####[facility] [address] [place] [address] WBC corrected for nucl RBC Auto (Bld) [#/Vol] 4.9 E9/L Normal 4.0-11.0 [facility] Comment on above: Performed By: #### 2 165322, 9327996, 1843735, 55930417, 7339783, 4905400, 3353035, 48888739 ####[facility] [address] [place] [address] CHEMISTRYOrdered By: SYSTEM SYSTEM on 08-09-2022 Albumin [...] 62 mL/min/1.73 m2 Normal >=59mL/min/1.7 3 m2 [facility] Chem S Globulin (S) [Mass/Vol] 3.7 g/dL [...] FT C POC Subsection POC Device SN [id number] Invalid Interpretation Code [facility] POC Subsection POC User ID [id number] Invalid Interpretation Code [facility] POC Subsection POC Username STEVE KIMBALL Invalid Interpretation Code [facility] POC Subsection COAGULATIONOrdered By: Vinnie Smith on 08-09-2022 aPTT Coag (PPP) [Time] 31.1 s Normal 25.1 - 36.5 second(s) [facility] Auto Coag INR Coag (PPP) [Relative time] 1.0 {INR} Invalid Interpretation Code [facility] Auto Coag PT Coag (PPP) [Time] 10.9 s Normal 9.4 - 1 2.5 second(s) [facility] Auto Coag CT Head or Brain w/o Contras ton 08-09-2022 CT Head or Brain w/o Contrast Normal [facility] CT Spine Cervical w/o Contra ston 08-09-2022 CT Spine Cervical w/o Contrast Normal [facility] Capillary Glucose POCon 07-29 Glucose [Mass/Vol] 212 mg/dL High 55-99 [facility] Comment on above: Performed By: #### 2 85262250 ####[facility] [address] [place] [address] Consent for Treatmenton 07-29 Consent for Treatment [id number]#[id number]:127 Normal [facility] Discharge Instructionson Discharge Instructions [id number]#[id number]:127 Normal [facility] ED Clinical Summaryon 2022 ED Clinical Summary Normal [facility] ED Note-Physicianon 08-10-19 23 ED Note-Physician Normal [facility] Comment on above: Result Comment: Elec tronically Signed By: Raul Arnold DO.deng\Date and Time Signed: 08/09/22 14:13 EDT ED Patient Education Noteon 08-09-2022 ED Patient Education Note Normal [facility] ED Patient Summaryon 023 ED Patient Summary Normal [facility] ED Traumaon 08-09-2022 ED Trauma [id number]:127 Normal [facility] HEMATOLOGYOrdered By: SYSTEM SYSTEM on 08-09-2022 Basophils/100 [...] Bilirubin.indirect [Mass or moles/Vol] UTC Abnormal 0.1-0.9 [facility] Comment on above: Result Comment: Resu lt verified by Discern Rule. Performed result UTC (Unable to Calculate) was sent as an Alpha code due the inability to calculate a valid numeric value. Performed By: #### 2 685255, 4402419, 9112171, 35128223, 0599273, 5021321, 8531517, 47337356 ####[facility] [address] [place] [address] Albumin [Mass/Vol] 3.9 g/dL Normal 3.3-5.0 [facility] Comment on above: Performed By: #### 2 597831, 3624606, 4411723, 59019837, 7533945, 9278718, 8499234, 95003075 ####[facility] [address] [place] [address] Albumin/Globulin (S) [Mass conc ratio] 1.0 Low 1.1-2.2 [facility] Comment on above: Performed By: #### 2 287695, 3281917, 2407331, 58934493, 7861948, 1999035, 6233931, 76466513 ####[facility] [address] [place] [address] ALP [Catalytic activity/Vol] 86 Int._Unit/L Normal 21-98 [facility] Comment on above: Performed By: #### 2 350169, 2678912, 8293320, 29218162, 4279150, 2587097, 6395930, 16995596 ####[facility] [address] [place] [address] ALT No additional P-5'-P [Catalytic activity/Vol] 21 Int._Unit/L Normal 6-46 [facility] Comment on above: Performed By: #### 2 916044, 4970141, 8114198, 26468865, 9441686, 4416203, 4703460, 52804113 ####[facility] [address] [place] [address] AST [Catalytic activity/Vol] 29 Int._Unit/L Normal 5-43 [facility] Comment on above: Performed By: #### 2 096669, 7066304, 2122214, 99167448, 0926325, 4947623, 9793975, 23903156 ####[facility] [address] [place] [address] Bilirubin [Mass/Vol] 0.5 mg/dL Normal 0.0-1.1 [facility] Comment on above: Performed By: #### 2 787186, 0601369, 9397895, 38103440, 6948926, 9412663, 1305571, 42638779 ####[facility] [address] [place] [address] Globulin (S) [Mass/Vol] 3.7 g/dL Normal 1.4-4.0 [facility] Comment on above: Performed By: #### 2 264708, 1754224, 7774462, 98306428, 8634952, 7658501, 8371032, 70909498 ####[facility] [address] [place] [address] Protein [Mass/Vol] 7.6 g/dL Normal 6.0-7.8 [facility] Comment on above: Performed By: #### 2 762996, 9095865, 3227190, 41829631, 8407864, 0197045, 4954432, 49487217 ####[facility] [address] [place] [address] Bilirubin.direct [Mass/Vol] mg/dL Normal 0.1-0.4 [facility] Comment on above: Performed By: #### 2 500736, 1017342, 4601968, 31607414, 6424153, 8607513, 4505873, 97739975 ####[facility] [address] [place] [address] Lactic Acidon 08-09-2022 Lactate [Mass/Vol] 1.9 mmol/L Normal 0.5-2.2 [facility] Comment on above: Performed By: #### 2 679140, 5688600, 4415616, 84514354, 7620638, 0159438, 2326070, 39223257 ####[facility] [address] [place] [address] PT & PTTon 08-09-2022 aPTT Coag (PPP) [Time] 31.1 second(s) Normal 25.1-36.5 [facility] Comment on above: Result Comment: Para meter [...] the same coagulation reagent and instrumentation as [facility]. Currently there are no coagulation studies available worldwide for children to 14 days, and no normal ranges. Heparin therapeutic range (represented by Anti-Factor Xa activity of 0.2 - 0.4 U/mL) corresponds to PTT of 56.6 - 109.0 sec. Performed By: #### 2 707412, 1553201, 8499833, 61155174, 2576470, 8766606, 8835749, 76518343 ####[facility] [address] [place] [address] INR Coag (PPP) [Relative time] 1.0 {INR} Invalid Interpretation Code [facility] Comment on above: Result Comment: INR results are specifically intended to assess patients stabilized on long-term Anticoagulation therapy suggested INR?s ?Less Intensive Anticoagulation? 2.0 ? 3.0Conventional Range 3.0 ? 4.5 Performed By: #### 2 626741, 6456524, 7579024, 62484356, 4866166, 4483523, 6649523, 32833148 ####[facility] [address] [place] [address] PT Coag (PPP) [Time] 10.9 second(s) Normal 9.4-12.5 [facility] Comment on above: Result Comment: 15 d [...] the same coagulation reagent and instrumentation as [facility]. Currently there are no coagulation studies available worldwide for children to 14 days, and no normal ranges. Performed By: #### 2 889858, 3593039, 9388394, 04940462, 6811849, 6203117, 6214499, 01043995 ####[facility] [address] [place] [address] Troponinon 08-09-2022 Troponin I.cardiac [Mass/Vol] 2.50 pg/mL Low 10.10-27.10 [facility] Comment on above: Result Comment: The 95% CI (Confidence Interval) PPV (Positive Predictive Value) for myocardial infarction in females is 38 pg/mL, in males 51 pg/mL. The results should be used in conjunction with clinical conditions of myocardial infarction.(Access High Sensitivity Troponin I Instructions For Use, Cecily Amol, October 2017) Performed By: #### 2 522882, 8576051, 1652600, 01227896, 7646100, 1694223, 9421100, 87227626 ####[facility] [address] [place] [address] UA With Cult Reflexon 2022 Bilirubin Ql (U) Negative Normal Negative [facility] Comment on above: Performed By: #### 1 9960114 ####[address] [address] Clarity (U) CLEAR Normal Clear [facility] Comment on above: Performed By: #### 1 8521860 ####[address] [address] Color (U) YELLOW Normal Yellow [facility] Comment on above: Performed By: #### 1 2479964 ####[address] [address] Epithelial cells.squamous LM.HPF (Urine sed) [#/Area] 0-2 Normal 0-2 [facility] Comment on above: Performed By: #### 1 0450522 ####[facility] [address] [place] [address] Glucose Test strip (U) [Mass/Vol] 3+ Abnormal Negative [facility] Comment on above: Performed By: #### 1 0352165 ####[address] [address] Hemoglobin Ql (U) Negative Normal Negative [facility] Comment on above: Performed By: #### 1 3728853 ####[facility] [address] [place] [address] Ketones (U) [Mass/Vol] Negative Normal Negative [facility] Comment on above: Performed By: #### 1 4990812 ####[address] [place] [address] Pattison.plasma/Pattison. RBC (Bld) [Mass ratio] 0-3 Normal 0-3 [facility] Comment on above: Performed By: #### 1 8029668 ####[address] [address] Nitrite Ql (U) Negative Normal Negative [facility] Comment on above: Performed By: #### 1 0885190 ####[address] [address] pH (U) 6.0 [pH] Invalid Interpretation Code 5.0-9.0 [facility] Comment on above: Performed By: #### 1 7152120 ####[address] [address] Protein (U) [Mass/Vol] Negative Normal Negative [facility] Comment on above: Performed By: #### 1 6221289 ####[address] [address] Specific gravity (U) [Rel density] <=1.005 Invalid Interpretation Code 1.005-1.030 [facility] Comment on above: Performed By: #### 1 1735078 ####[address] [address] Type of Urine collection method Clean Catch Normal [facility] Comment on above: Performed By: #### 1 3502021 ####[address] [address] Urobilinogen Qn (U) 0.2 {Papa'U}/dL Normal 0.0-1.0 [facility] Comment on above: Performed By: #### 1 9027400 ####[address] [address] WBC Auto Ql (U) Negative Normal Negative [facility] Comment on above: Performed By: #### 1 9044924 ####[facility] [address] [place] [address] WBC LM.HPF (Urine sed) [#/Area] 0-5 Normal 0-5 [facility] Comment on above: Performed By: #### 1 3296784 ####[facility] [address] [place] [address] URINALYSISOrdered By: Sylvia Smith on 08-09-2022 Bilirubin [...] PM) Normal Negative [facility] UA Auto SS Pattison.plasma/Pattison. RBC (Bld) [Mass ratio] 0-3 /HPF Normal [...] [facility] UA Auto SS Urobilinogen Qn (U) 0.6321636 {Papa'U}/dL Normal 0.0 - 1.0 EU/dL [facility] UA Auto SS WBC Auto Ql (U) Negative (08/09/22 2:08 PM) Normal Negative [facility] UA Auto SS WBC LM.HPF (Urine sed) [#/Area] 0-5 /HPF Normal 0-5/HPF [facility] UA Auto SS XR Chest Single Viewon 08-09 XR Chest Single View Normal [facility] eGFRon 08-09-2022 GFR/1.73 sq M.predicted among non-blacks MDRD (S/P/Bld) [Vol rate/Area] 62 mL/min/1.73 m2 Normal >=59 [facility] Comment on above: Order Comment: Order added by Discern Expert. Result Comment: Web Site Designer marquez kidney disease could be indicated at eGFR's of less than 60 mL/min/1.73m2. Kidney failure is indicated at less than 15 mL/min/1.73m2. Performed By: #### 2 066442, 4470136, 1188361, 45385440, 2407297, 5909425, 5724872, 18457872 ####[facility] [address] [place] [address] ED Note-Nursingon 07-23-2022 ED Note-Nursing Pt discharged and wanted to wait in lobby to await ride from sister. Sister is driving from [place] to take pt home. Normal [facility] Coding Summary.on 07-22-2022 Coding Summary. Normal [facility] Consent for Treatmenton 06-30 Consent for Treatment [id number]#1.00CD:127 [facility] Discharge Instructionson Discharge Instructions [id number]#1.00CD:127 [facility] ED Clinical Summaryon 2022 ED Clinical Summary Normal [facility] ED Note-Physicianon 07-20-19 ED Note-Physician [facility] Comment on above: Result Comment: Elec tronically Signed By: Ty Manrique DO\.br\Date and Time Signed: 07/18/22 23:23 EDT ED Patient Education Noteon 07-19-2022 ED Patient Education Note Normal [facility] ED Patient Summaryon 023 ED Patient Summary Normal [facility] ED Traumaon 07-19-2022 ED Trauma [id number]#1.00CD:127 Normal [facility] EMS Documentationon 07-20-19 23 EMS Documentation Normal [facility] EMS Documentation Normal [facility] EMS Documentation Normal [facility] Pre-Arrival Noteon 3 Pre-Arrival Note Normal [facility] XR Hip 2-3 Views Left + Pelv sundeep 07-19-2022 XR Hip 2-3 Views Left + Pelvis Normal [facility] XR Shoulder Complete Lefton 07-19-2022 XR Shoulder Complete Left Normal [facility] Progress Noteson 07-18-2022 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 Normal [facility] IntraOperative Documentson 0 05-23-2022 IntraOperative Documents [id number]#1.00CD:127 Normal [facility] IntraOperative Documents [id number]#1.00CD:127 Normal [facility] Coding Summary.on 05-16-2022 Coding Summary. Normal [facility] Operative Reporton 3 Operative Report Normal [facility] Comment on above: Result Comment: Elec tronically Signed By: Beka Valenzuela CRNAbr\Date and Time Signed: 05/09/22 09:12 EST Operative Report Normal [facility] Comment on above: Result Comment: Elec tronically Signed By: Beka Valenzuela CRNA\Reinierbr\Date and Time Signed: 05/09/22 08:59 EST Main OR Intraoperative Recor don 05-14-2022 Main OR Intraoperative Record [facility] Postoperative Documentson Postoperative Documents [id number]#1.00CD:127 [facility] Progress Note-Physicianon Progress Note-Physician Normal [facility] Comment on above: Result Comment: Elec tronically Signed By: Malcolm Tamayo Jr, DO\.br\Date and Time Signed: 05/13/22 09:32 EST Progress Note-Physician Normal F [facility] Comment on above: Result Comment: Elec tronically Signed By: Malcolm Tamayo Jr, DO\.br\Date and Time Signed: 05/13/22 09:32 EST Consenton 05-10-2022 Consent [id number]#1.00CD:127 [facility] Discharge Instructionson Discharge Instructions [id number]#1.00CD:127 [facility] IntraOperative Documentson 0 05-10-2022 IntraOperative Documents [id number]#1.00CD:127 [facility] Consent for Treatmenton Consent for Treatment [id number]#1.00CD:127 [facility] Endoscopic Procedure Report - Otheron 05-09-2022 Endoscopic Procedure Report - Other [facility] Comment on above: Result Comment: Elec tronically Signed By: EMILY BANKS, [place]\.br\Date and Time Signed: 05/09/22 09:12 EST Other Comment: Mahi wade Attachment - attachment storage system not supported [id number] Can be viewed in source systemMissing Attachment - attachment storage system not supported [id number] Can be viewed in source systemMissing Attachment - attachment storage system not supported [id number] Can be viewed in source systemMissing Attachment - attachment storage system not supported [id number] Can be viewed in source systemMissing Attachment - attachment storage system not supported 6122502 Can be viewed in source systemMissing Attachment - attachment storage system not supported 3946844 Can be viewed in source system Main OR PACU I Recordon 02-0 Main OR PACU I Record Normal [facility] Main OR Preoperative Recordo n 05-09-2022 Main OR Preoperative Record Normal [facility] Monitor Recordon 05-09-2022 Monitor Record [id number]#1.00CD:127 Normal [facility] Monitor Record [id number]#1.00CD:127 Normal [facility] Coding Summary.on 04-29-2022 Coding Summary. Normal [facility] EMS Documentationon 04-27-19 EMS Documentation Normal [facility] Auto Diffon 04-26-2022 Basophils/100 WBC (Bld) 0.5 % Normal 0.0-2.0 F [facility] Comment on above: Order Comment: Order Added by Discern Expert. Performed By: #### 2 404819, 3623358, 02235268, 3649627, 4569855, 1666099 ####[facility] [address] [place] [address] Basophils/Leukocytes Auto (Bld) [Pure # fraction] 0.0 E9/L Normal 0.0-0.2 [facility] Comment on above: Order Comment: Order Added by Discern Expert. Performed By: #### 2 050591, 9869304, 12823951, 9417906, 5007523, 9300000 ####[facility] [address] [place] [address] Eosinophils/100 WBC (Bld) 4.3 % Normal 0.0-8.0 [facility] Comment on above: Order Comment: Order Added by Discern Expert. Performed By: #### 2 709207, 3093131, 35547055, 9190677, 8676518, 3561069 ####[facility] [address] [place] [address] Eosinophils/Leukocytes Auto (Bld) [Pure # fraction] 0.2 E9/L Normal 0.0-0.5 [facility] Comment on above: Order Comment: Order Added by Katherine Expert. Performed By: #### 2 868052, 3216426, 55329175, 1639692, 1263784, 2248109 ####[facility] [address] [place] [address] Lymphocytes/100 WBC (Bld) 29.5 % Normal 14.0-50.0 [facility] Comment on above: Order Comment: Order Added by Discern Expert. Performed By: #### 2 057531, 7500651, 94107752, 9110492, 0873978, 4283783 ####[address] [address] Lymphocytes/Leukocytes Auto (Bld) [Pure # fraction] 1.5 E9/L Normal 1.0-4.0 [facility] Comment on above: Order Comment: Order Added by Katherine Expert. Performed By: #### 2 487666, 0881520, 56238869, 1130297, 2672376, 7800986 ####[facility] [address] [place] [address] Monocytes/100 WBC (Bld) 10.0 % Normal 4.0-14.0 [facility] Comment on above: Order Comment: Order Added by Katherine Expert. Performed By: #### 2 912793, 1871291, 47405334, 4339046, 2721350, 4208539 ####[address] [place] [address] Monocytes/Leukocytes Auto (Bld) [Pure # fraction] 0.5 E9/L Normal 0.2-1.0 [facility] Comment on above: Order Comment: Order Added by Katherine Expert. Performed By: #### 2 493731, 0859735, 21780302, 1091190, 2450542, 2202014 ####[facility] [address] [place] [address] Neutrophils/100 WBC (Bld) 55.7 % Normal 36.0-75.0 [facility] Comment on above: Order Comment: Order Added by Discern Expert. Performed By: #### 2 434037, 2530956, 71810443, 2175902, 3395404, 0542839 ####[address] [place] [address] Neutrophils/Leukocytes Auto (Bld) [Pure # fraction] 2.8 E9/L Normal 2.0-7.5 [facility] Comment on above: Order Comment: Order Added by Discern Expert. Performed By: #### 2 500564, 2821021, 39962695, 8265809, 2956615, 0038043 ####[address] [address] CBC w/ Auto Diffon 3 Erythrocyte distribution width (RBC) [Ratio] 13.6 % Normal 10.9-14.2 [facility] Comment on above: Performed By: #### 2 330715, 3503956, 10294065, 3529688, 2099896, 8296853 ####[address] [address] Hematocrit (Bld) [Volume fraction] 35.5 % Normal 34.0-46.0 [facility] Comment on above: Performed By: #### 2 831225, 4343429, 22131888, 7518461, 2308563, 5272211 ####[address] [address] Hemoglobin (Bld) [Mass/Vol] 11.3 g/dL Low 12.0-16.0 [facility] Comment on above: Performed By: #### 2 881004, 7037087, 13638242, 6811825, 5133925, 7956651 ####[address] [address] MCH (RBC) [Entitic mass] 28.0 pg Normal 27.0-34.0 [facility] Comment on above: Performed By: #### 2 363285, 8567138, 34330426, 2745839, 9935107, 2343496 ####[facility] [address] [place] [address] MCHC (RBC) [Mass/Vol] 31.8 g/dL Normal 31.4-36.0 [facility] Comment on above: Performed By: #### 2 483027, 5353600, 39256906, 6645483, 5278034, 6065790 ####[place] [address] MCV (RBC) [Entitic vol] 88.2 fL Normal 80.0-100.0 F [facility] Comment on above: Performed By: #### 2 639252, 4524136, 40732299, 4081855, 1384954, 8752360 ####[place] [address] Platelet mean volume (Bld) [Entitic vol] 8.7 fL Normal 6.4-10.8 [facility] Comment on above: Performed By: #### 2 712497, 6869675, 27346810, 3874640, 5058180, 3632686 ####[address] Platelets (Bld) [#/Vol] 148.0 E9/L Low 150.0-500.0 [facility] Comment on above: Performed By: #### 2 805372, 5418719, 70893388, 2000411, 6748716, 2759624 ####[address] RBC (Bld) [#/Vol] 4.0 E12/L Low 4.3-5.9 [facility] Comment on above: Performed By: #### 2 004137, 9749027, 50367919, 0656116, 0327370, 9987629 ####[address] [address] WBC corrected for nucl RBC Auto (Bld) [#/Vol] 5.0 E9/L Normal 4.0-11.0 [facility] Comment on above: Performed By: #### 2 956833, 2330070, 96864321, 3815730, 7900108, 8018685 ####[facility] [address] [place] [address] CMPon 04-26-2022 Albumin [Mass/Vol] 3.5 g/dL Normal 3.3-5.0 [facility] Comment on above: Performed By: #### 2 822508, 8057990, 73736769, 5877212, 4480432, 7153144 ####[facility] [address] [place] [address] Albumin/Globulin (S) [Mass conc ratio] 1.0 Low 1.1-2.2 [facility] Comment on above: Performed By: #### 2 350979, 9870355, 96561494, 7701026, 7717511, 7620097 ####[address] [address] ALP [Catalytic activity/Vol] 91 Int._Unit/L Normal 21-98 [facility] Comment on above: Performed By: #### 2 170537, 0801978, 73742710, 3805628, 6206671, 2711579 ####[address] [address] ALT No additional P-5'-P [Catalytic activity/Vol] 18 Int._Unit/L Normal 6-46 [facility] Comment on above: Performed By: #### 2 258051, 3427453, 70612033, 9385768, 6478739, 1917528 ####[facility] [address] [place] [address] AST [Catalytic activity/Vol] 24 Int._Unit/L Normal 5-43 [facility] Comment on above: Performed By: #### 2 160029, 5304746, 52703963, 3826197, 8227220, 6404485 ####[address] [address] Bilirubin [Mass/Vol] 0.4 mg/dL Normal 0.0-1.[address] [facility] Comment on above: Performed By: #### 2 355150, 8872554, 93168766, 5316464, 2340579, 9682789 ####[facility] [address] [place] [address] Creatinine [Mass/Vol] 1.0 mg/dL Normal 0.5-1.3 [facility] Comment on above: Performed By: #### 2 758798, 0667862, 73933312, 4484938, 0144110, 7176571 ####[facility] [address] [place] [address] Globulin (S) [Mass/Vol] 3.5 g/dL Normal 1.4-4.0 [facility] Comment on above: Performed By: #### 2 812021, 8122771, 97066792, 9792823, 1296168, 2516183 ####[facility] [address] [place] [address] Protein [Mass/Vol] 7.0 g/dL Normal 6.0-7.8 [facility] Comment on above: Performed By: #### 2 242644, 2199333, 56190758, 5770453, 1506123, 3059687 ####[facility] [address] [place] [address] Urea nitrogen [Mass/Vol] 12 mg/dL Normal 5-21 [facility] Comment on above: Performed By: #### 2 743267, 8153872, 51641972, 8639286, 3292851, 6189522 ####[facility] [address] [place] [address] Urea nitrogen/Creatinine [Mass ratio] 12 No Units Normal 10-20 [facility] Comment on above: Performed By: #### 2 497437, 7104437, 84637914, 0807448, 5866339, 4534422 ####[facility] [address] [place] [address] Anion gap [Moles/Vol] 10 mmol/L Normal 6-16 [facility] Comment on above: Performed By: #### 2 992405, 5326281, 38144609, 2877299, 5233343, 0768166 ####[facility] [address] [place] [address] Calcium [Mass/Vol] 8.7 mg/dL Low 8.9-11.1 [facility] Comment on above: Performed By: #### 2 784973, 4188279, 70796348, 3462570, 2245653, 6071840 ####[facility] [address] [place] [address] Chloride [Moles/Vol] 110 mmol/L Normal 101-111 [facility] Comment on above: Performed By: #### 2 285082, 4375316, 80964753, 1426005, 1391274, 5650913 ####[facility] [address] [place] [address] CO2 [Moles/Vol] 21 mmol/L Normal 21-31 [facility] Comment on above: Performed By: #### 2 933672, 7914927, 82991138, 6592768, 6685781, 2448369 ####[facility] [address] [place] [address] Glucose [Mass/Vol] 190 mg/dL Normal 55-199 [facility] Comment on above: Result Comment: If t his glucose result represents a fasting glucose, interpretation should refer to the following reference range: 55-99 mg/dL Performed By: #### 2 202090, 0368071, 06067961, 1381144, 6472589, 7674662 ####[facility] [address] [place] [address] Potassium [Moles/Vol] 4.0 mmol/L Normal 3.5-5.3 [facility] Comment on above: Performed By: #### 2 900026, 6948748, 24370505, 6857479, 0827257, 6531827 ####[facility] [address] [place] [address] Sodium [Moles/Vol] 137 mmol/L Normal 135-145 [facility] Comment on above: Performed By: #### 2 567346, 5140925, 30006694, 7824896, 1594393, 0465666 ####[facility] [address] [place] [address] Consent for Treatmenton 04-01 Consent for Treatment [id number]#1.00CD:127 Normal [facility] Discharge Instructionson Discharge Instructions [id number]#1.00CD:127 Normal [facility] Discharge Instructions [id number]#1.00CD:127 Normal [facility] Comment on above: Other Comment: Mahi arnold page ED Clinical Summaryon 2022 ED Clinical Summary Normal [facility] ED Note-Physicianon 04-26-19 23 ED Note-Physician Normal [facility] Comment on above: Result Comment: Elec tronically Signed By: Raul Arnold DO.br\Date and Time Signed: 04/26/22 18:11 EST ED Patient Education Noteon 04-26-2022 ED Patient Education Note Normal [facility] ED Patient Summaryon 023 ED Patient Summary Normal [facility] Lipase Levelon 04-26-2022 Lipase [Catalytic activity/Vol] 32 U/L Normal 13-58 [facility] Comment on above: Performed By: #### 2 707122, 6718300, 87850178, 8128729, 4634383, 7811105 ####[facility] [address] [place] [address] Pre-Arrival Noteon 3 Pre-Arrival Note Normal [facility] Troponinon 04-26-2022 Troponin I.cardiac [Mass/Vol] 3.70 pg/mL Low 10.10-27.10 [facility] Comment on above: Result Comment: The 95% CI (Confidence Interval) PPV (Positive Predictive Value) for myocardial infarction in females is 38 pg/mL, in males 51 pg/mL. The results should be used in conjunction with clinical conditions of myocardial infarction.(Access High Sensitivity Troponin I Instructions For Use, Cecily Amol, October 2017) Performed By: #### 2 309783, 1567363, 47808685, 7909366, 9195601, 2359760 ####[facility] [address] [place] [address] XR Abdomen Series w/ Chest 1 Viewon 04-26-2022 XR Abdomen Series w/ Chest 1 View Normal [facility] eGFRon 04-26-2022 GFR/1.73 sq M.predicted among blacks MDRD (S/P/Bld) [Vol rate/Area] mL/min/{1.73_m2} Normal >=59 [facility] Comment on above: Order Comment: Order added by Discern Expert. Result Comment: eGFR is race adjusted. AA=. Performed By: #### 2 562867, 9075750, 63206068, 8573947, 4951231, 8111726 ####[facility] [address] [place] [address] GFR/1.73 sq M.predicted among non-blacks MDRD (S/P/Bld) [Vol rate/Area] 55 mL/min/1.73 m2 Low >=59 [facility] Comment on above: Order Comment: Order added by Discern Expert. Result Comment: Web Site Designer marquez kidney disease could be indicated at eGFR's of less than 60 mL/min/1.73m2. Kidney failure is indicated at less than 15 mL/min/1.73m2. Performed By: #### 2 500917, 2030244, 19838187, 6088489, 5330477, 4290184 ####[facility] [address] [place] [address] EMS Documentationon 04-23-19 23 EMS Documentation Normal [facility] Consent for Procedure/Surger yon 04-15-2022 Consent for Procedure/Surgery [id number]#1.00CD:127 Normal [facility] Gastroenterology Office/Clin ic Noteon 04-11-2022 Gastroenterology Office/Clinic Note Normal [facility] Comment on above: Result Comment: Elec tronically Signed By: Maryellen Da Silva\.br\Date and Time Signed: 04/10/22 12:20 EST\.br\Electronically Co-Signed By: [place] DIAZ MD\.br\Date and Time Co-Signed: 04/11/22 12:06 EST Ambulatory Visit Summaryon 0 04-10-2022 Ambulatory Visit Summary Invalid Interpretation Code Bridgett esophagitis [facility] Coding Summary.on 04-08-2022 Coding Summary. Normal [facility] EMS Documentationon 04-06-19 EMS Documentation Normal [facility] Coding Summary.on 04-05-2022 Coding Summary. Normal [facility] EMS Documentationon 04-04-19 EMS Documentation Normal [facility] Consent for Treatmenton Consent for Treatment [id number]#1.00CD:127 Normal [facility] ED Clinical Summaryon 2022 ED Clinical Summary Normal [facility] ED Note-Physicianon 04-03-19 ED Note-Physician Normal [facility] Comment on above: Result Comment: Elec tronically Signed By: Vinayak Cardoso PA-C\.br\Date and Time Signed: 04/03/22 20:34 EST\.br\Electronically Co-Signed By: Raul Arnold DO\.br\Date and Time Co-Signed: 04/03/22 21:11 EST ED Patient Education Noteon 04-03-2022 ED Patient Education Note Normal [facility] ED Patient Summaryon 023 ED Patient Summary Normal [facility] ED Traumaon 04-03-2022 ED Trauma [id number]#1.00CD:127 Normal [facility] Pre-Arrival Noteon Pre-Arrival Note Normal [facility] XR Hip 2-3 Views Left + Pelv sundeep 04-03-2022 XR Hip 2-3 Views Left + Pelvis Normal [facility] XR Shoulder Complete Lefton 04-03-2022 XR Shoulder Complete Left Normal [facility] Consent for Treatmenton Consent for Treatment [id number]:127 Normal [facility] Discharge Instructionson Discharge Instructions [id number]#[id number]:127 Normal [facility] ED Clinical Summaryon 2022 ED Clinical Summary Normal [facility] ED Note-Physicianon 04-02-19 ED Note-Physician Normal [facility] Comment on above: Result Comment: Elec tronically Signed By: Brady Marinelli DO\.br\Date and Time Signed: 04/02/22 10:36 EST ED Patient Education Noteon 04-02-2022 ED Patient Education Note Normal [facility] ED Patient Summaryon 023 ED Patient Summary Normal [facility] ED Traumaon 04-02-2022 ED Trauma [id number]#[id number]:127 Normal [facility] EMS Documentationon 04-02-19 EMS Documentation Normal [facility] EMS Documentation Normal [facility] XR Elbow 3+ Views Lefton XR Elbow 3+ Views Left Normal [facility] XR Hip 2-3 Views Left + Pelv sundeep 04-02-2022 XR Hip 2-3 Views Left + Pelvis Normal [facility] CHEMISTRYOrdered By: SYSTEM SYSTEM on 03-13-2022 Albumin [...] mmol/L Normal 6 - 16 mEq/L [facility] [place] AST [Catalytic activity/Vol] 16 [iU]/d Normal [...] rate/Area] mL/min/1.73 m2 Normal >=59mL/min/1.7 3 m2 [facility] Chem S GFR/1.73 sq M.predicted among non-blacks MDRD (S/P/Bld) [Vol rate/Area] 55 mL/min/1.73 m2 Low >=59mL/min/1.7 3 m2 [facility] Chem S Globulin (S) [Mass/Vol] 3.3 g/dL [...] PM) Normal Negative [facility] UA Auto SS Pattison.plasma/Pattison. RBC (Bld) [Mass ratio] 0-3 /HPF Normal [...] [facility] UA Auto SS Urobilinogen Qn (U) [id number] {Papa'U}/dL Normal 0.0 - 1.0 EU/dL [facility] [...] rate/Area] mL/min/1.73 m2 Normal >=59mL/min/1.7 3 m2 [facility] Chem S Globulin (S) [Mass/Vol] 3.3 g/dL [...] PM) Normal Negative [facility] UA Auto SS Pattison.plasma/Pattison. RBC (Bld) [Mass ratio] 0-3 /HPF Normal [...] [facility] UA Auto SS Urobilinogen Qn (U) 0.5379290 {Papa'U}/dL Normal 0.0 - 1.0 EU/dL [facility] [...] mg/dL Low 8.9 - 11. 1 mg/dL [facility] Remisol Chloride [Moles/Vol] 111 mmol/L Normal 101 - 1 11 mmol/L [facility] Remisol CO2 [Moles/Vol] 22 mmol/L Normal 21 - 31 mmol/L [facility] Remisol Creatinine [Mass/Vol] 1.2 mg/dL Normal 0.5 - 1.3 mg/dL [facility] Remisol GFR/1.73 sq M.predicted among blacks MDRD (S/P/Bld) [Vol rate/Area] 54 mL/min/1.73 m2 Low >=59mL/min/1.7 3 m2 [facility] Chem S GFR/1.73 sq M.predicted among non-blacks MDRD (S/P/Bld) [Vol rate/Area] 45 mL/min/1.73 m2 Low >=59mL/min/1.7 3 m2 [facility] Chem S Glucose [Mass/Vol] 165 mg/dL Normal 55 - 199 mg/dL [facility] Remisol Potassium [Moles/Vol] 3.2 mmol/L Low 3.5 - 5.3 mmol/L [facility] Remisol Sodium [Moles/Vol] 138 mmol/L Normal 135 - 145 mmol/L [facility] Remisol Urea nitrogen [Mass/Vol] 11 mg/dL Normal 5 - 21 mg/dL [facility] Remisol Urea nitrogen/Creatinine [Mass ratio] 9 mg/mg Low 10 - 20 [facility] Remisol CHEMISTRYOrdered By: Lab ROP User on 02-03-2022 Glucose [Mass/Vol] 186 mg/dL High 55 - 99 mg/dL [facility] C POC Subsection Comment on above: Result Comment: Fausto rubi RN/ POC Device SN [id number] Invalid Interpretation Code [facility] POC Subsection POC User ID [id number] Invalid Interpretation Code [facility] POC Subsection POC Username LORAINE SELVIN Invalid Interpretation Code [facility] POC Subsection HEMATOLOGYOrdered By: SYSTEM SYSTEM on [...] Comment: Fausto rubi RN/ POC Device SN [id number] Invalid Interpretation Code [facility] POC Subsection POC User ID [id number] Invalid Interpretation Code [facility] POC Subsection POC Username JERZY BARCENAS Invalid Interpretation Code [facility] POC Subsection Glucose [Mass/Vol] 176 mg/dL High 55 - 99 mg/dL [facility] C POC Subsection Comment on above: Result Comment: Lucille ronak Meter POC Device SN [id number] Invalid Interpretation Code [facility] POC Subsection POC User ID [id number] Invalid Interpretation Code [facility] POC Subsection POC Username LIANA ALLEN Invalid Interpretation Code [facility] POC Subsection CHEMISTRYOrdered By: SYSTEM SYSTEM on [...] AM) Normal Negative [facility] UA Auto SS Pattison.plasma/Pattison. RBC (Bld) [Mass ratio] 0-3 /HPF Normal [...] AM) Invalid Interpretation Code 1.005 - 1.030 [facility] UA Auto SS UA Spec Desc Clean Catch (02/02/22 7:06 AM) Normal [facility] UA Auto SS Urobilinogen Qn (U) 0.9613689 {Papa'U}/dL Normal 0.0 - 1.0 EU/dL [facility] UA Auto SS WBC Auto Ql (U) Trace *ABN* (02/02/22 7:06 AM) Invalid Interpretation Code Negative [facility] UA Auto SS WBC LM.HPF (Urine sed) [#/Area] 0-5 /HPF Normal 0-5/HPF [facility] UA Auto SS CHEMISTRYOrdered By: Lab ROP User on 02-01-2022 Glucose [Mass/Vol] 261 mg/dL High 55 - 99 mg/dL [facility] C POC Subsection Comment on above: Result Comment: Fausto rubi RN/ POC Device SN [id number] Invalid Interpretation Code [facility] POC Subsection POC User ID [id number] Invalid Interpretation Code [facility] POC Subsection POC Username RUFINO AIDE Invalid Interpretation Code [facility] POC Subsection CHEMISTRYOrdered By: SYSTEM SYSTEM on [...] 27 mL/min/1.73 m2 Low >=59mL/min/1.7 3 m2 [facility] Chem S GFR/1.73 sq M.predicted among non-blacks MDRD (S/P/Bld) [Vol rate/Area] 22 mL/min/1.73 m2 Low >=59mL/min/1.7 3 m2 [facility] Chem S Globulin (S) [Mass/Vol] 3.6 g/dL [...] 2.2 mg/dL High 0.5 - 1.3 mg/dL [facility] Remisol CHEMISTRYOrdered By: Sejal Carter on 01-31-2022 HbA1c (Bld) [Mass fraction] 9.6 % High <=5.9% [facility] ChemAutoSS HEMATOLOGYOrdered By: SYSTEM SYSTEM on 01-31-2022 [...] 7.2 E9/L Normal 2.0 - 7.5 E9/L [facility] HemeAutoSS HEMATOLOGYOrdered By: Sheila Carter on 01-31-2022 Erythrocyte distribution width (RBC) [Ratio] 13.5 % Normal 10.9 - 14.2 % [facility] HemeAutoSS Hematocrit (Bld) [Volume fraction] 35.8 % Normal 34.0 - 46.0 % [facility] HemeAutoSS Hemoglobin (Bld) [Mass/Vol] 11.7 g/dL Low [...] Result Comment: Fausto CHAUDHARY POC Device SN [id number] Invalid Interpretation Code [facility] POC Subsection POC User ID [id number] Invalid Interpretation Code [facility] POC Subsection POC Username GAGANDEEP HER Invalid Interpretation Code [facility] POC Subsection Glucose [Mass/Vol] 265 mg/dL High 55 - 99 mg/dL [facility] C POC Subsection Comment on above: Result Comment: Fausto CHAUDHARY POC Device SN [id number] Invalid Interpretation Code [facility] POC Subsection POC User ID [id number] Invalid Interpretation Code [facility] POC Subsection POC [...] 60 mL/min/1.73 m2 Normal >=59mL/min/1.7 3 m2 [facility] Chem S GFR/1.73 sq M.predicted among non-blacks MDRD (S/P/Bld) [Vol rate/Area] 50 mL/min/1.73 m2 Low >=59mL/min/1.7 3 m2 [facility] Chem S Glucose [Mass/Vol] 255 mg/dL High 55 - 199 mg/dL [facility] Remisol Potassium [Moles/Vol] 3.5 mmol/L Normal 3.5 - 5.3 mmol/L [facility] Remisol Sodium [Moles/Vol] 138 mmol/L Normal 135 - 145 mmol/L [facility] Remisol Urea nitrogen [Mass/Vol] 19 mg/dL Normal 5 - 21 mg/dL [facility] Remisol Urea nitrogen/Creatinine [Mass ratio] 17 mg/mg Normal 10 - 20 [facility] Remisol CHEMISTRYOrdered By: SYSTEM SYSTEM on 01-29-2022 Anion gap [Moles/Vol] 14 mmol/L Normal 6 - 16 mEq/L [facility] [place] Calcium [Mass/Vol] 9.1 mg/dL Normal 8.9 - 11. 1 mg/dL [facility] Remisol Chloride [Moles/Vol] 103 mmol/L Normal 101 - 1 11 mmol/L [facility] Remisol CO2 [Moles/Vol] 24 mmol/L Normal 21 - 31 mmol/L [facility] Remisol Creatinine [Mass/Vol] 1.1 mg/dL Normal 0.5 - 1.3 mg/dL [facility] Remisol GFR/1.73 sq M.predicted among blacks MDRD (S/P/Bld) [Vol rate/Area] 60 mL/min/1.73 m2 Normal >=59mL/min/1.7 3 m2 [facility] Chem S GFR/1.73 sq M.predicted among non-blacks MDRD (S/P/Bld) [Vol rate/Area] 50 mL/min/1.73 m2 Low >=59mL/min/1.7 3 m2 [facility] Chem S Glucose [Mass/Vol] 245 mg/dL High [...] mmol/L Normal 6 - 16 mEq/L [facility] [place]isol Calcium [Mass/Vol] 9.0 mg/dL Normal 8.9 - 11. 1 mg/dL [facility] Remisol Chloride [Moles/Vol] 107 mmol/L Normal 101 - 1 11 mmol/L [facility] Remisol CO2 [Moles/Vol] 23 mmol/L Normal 21 - 31 mmol/L [facility] Remisol Creatinine [Mass/Vol] 1.2 mg/dL Normal 0.5 - 1.3 mg/dL [facility] Remisol GFR/1.73 sq M.predicted among blacks MDRD (S/P/Bld) [Vol rate/Area] 54 mL/min/1.73 m2 Low >=59mL/min/1.7 3 m2 [facility] Chem S GFR/1.73 sq M.predicted among non-blacks MDRD (S/P/Bld) [Vol rate/Area] 45 mL/min/1.73 m2 Low >=59mL/min/1.7 3 m2 [facility] Chem S Glucose [Mass/Vol] 151 mg/dL Normal [...] Comment: Fausto rubi RN/ POC Device SN [id number] Invalid Interpretation Code [facility] POC Subsection POC User ID [id number] Invalid Interpretation Code [facility] POC Subsection POC [...] PM) Normal Negative [facility] UA Auto SS Pattison.plasma/Pattison. RBC (Bld) [Mass ratio] 0-3 /HPF Normal [...] [facility] UA Auto SS Urobilinogen Qn (U) 0.6395679 {Papa'U}/dL Normal 0.0 - 1.0 EU/dL [facility] UA Auto SS WBC Auto Ql (U) Negative (01/28/22 2:37 PM) Normal Negative [facility] UA Auto SS WBC LM.HPF (Urine sed) [#/Area] 0-5 /HPF Normal 0-5/HPF [facility] UA Auto SS CHEMISTRYOrdered By: Lab ROP User on 01-27-2022 Glucose [Mass/Vol] 187 mg/dL High 55 - 99 mg/dL [facility] C POC Subsection Comment on above: Result Comment: Fausto rubi RN/ POC Device SN [id number] Invalid Interpretation Code [facility] POC Subsection POC User ID [id number] Invalid Interpretation Code [facility] POC Subsection POC Username ALEKSANDAR KING Invalid Interpretation Code [facility] POC Subsection CHEMISTRYOrdered By: SYSTEM SYSTEM on [...] 60 mL/min/1.73 m2 Normal >=59mL/min/1.7 3 m2 [facility] Chem S GFR/1.73 sq M.predicted among non-blacks MDRD (S/P/Bld) [Vol rate/Area] 50 mL/min/1.73 m2 Low >=59mL/min/1.7 3 m2 [facility] Chem S Globulin (S) [Mass/Vol] 4.3 g/dL [...] PM) Normal Negative [facility] UA Auto SS Pattison.plasma/Pattison. RBC (Bld) [Mass ratio] 0-3 /HPF Normal 0-3/HPF [facility] UA A uto SS Mucus Ql (Urine [...] Desc Clean Catch (01/27/22 3:30 PM) Normal [facility] UA Auto SS Urobilinogen Qn (U) 0.8022053 {Papa'U}/dL Normal 0.0 - 1.0 EU/dL [facility] [...] Comment: Lucille ronak Meter POC Device SN [id number] Invalid Interpretation Code [facility] POC Subsection POC User ID [id number] Invalid Interpretation Code [facility] POC Subsection POC Username BHARGAV CANO Invalid Interpretation Code [facility] POC Subsection Glucose [Mass/Vol] 126 mg/dL High 55 - 99 mg/dL [facility] C POC Subsection POC Device SN [id number] Invalid Interpretation Code [facility] POC Subsection POC User ID [id number] Invalid Interpretation Code [facility] POC Subsection POC Username AGUSTIN GARSIA Invalid Interpretation Code [facility] POC Subsection CHEMISTRYOrdered By: SYSTEM SYSTEM on 11-17-2021 Albumin [Mass/Vol] 3.7 g/dL Normal 3.3 - 5.0 gm/dL [facility] Remisol Albumin/Globulin [Mass ratio] 1.1 {ratio} Normal [...] PM) Normal Negative [facility] UA Auto SS Pattison.plasma/Pattison. RBC (Bld) [Mass ratio] 0-3 /HPF Normal 0-3/HPF [facility] UA A uto SS Nitrite Ql (U) Negative (11/17/21 7:06 PM) Normal Negative [facility] UA Auto SS pH (U) 6.0 *NA* (11/17/21 7:06 PM) Invalid Interpretation Code 5.0 - 9.0 [facility] UA Auto SS Protein (U) [Mass/Vol] Negative (11/17/21 7:06 PM) Normal Negative [facility] UA Auto SS Specific gravity (U) [Rel density] <=1.005 *NA* (11/17/21 7:06 PM) Invalid Interpretation Code 1.005 - 1.030 [facility] UA Auto SS UA Spec Desc Clean Catch (11/17/21 7:06 PM) Normal [facility] UA Auto SS Urobilinogen Qn (U) 0.3431849 {Papa'U}/dL Normal 0.0 - 1.0 EU/dL [facility] UA Auto SS WBC Auto Ql (U) Negative (11/17/21 7:06 PM) Normal Negative [facility] UA Auto SS WBC LM.HPF (Urine sed) [#/Area] 0-5 /HPF Normal 0-5/HPF [facility] UA Auto SS Vital Signs Date Time Vital Sign Value Performing Clinician Facility 03-03-2023 13:45-0500 Body height 162.56 cm Ashish Chester Other [facility] Other 03-03-2023 13:45-0500 Body temperature 97.5 [degF] Ashish Chester Other [facility] Other 03-03-2023 13:45-0500 Diastolic blood pressure 55 mm[Hg] Ashish Chester Other [facility] Other 03-03-2023 13:45-0500 Systolic blood pressure 112 mm[Hg] Ashish Chester Other [facility] Other 02-13-2023 09:43-0500 Diastolic blood pressure 58 mm[Hg] Joaquim Noe [facility] 02-13-2023 09:43-0500 Heart rate 60 /min Joaquim Noe [facility] 02-13-2023 09:43-0500 Respiratory rate 16 /min Joaquim Noe [facility] 02-13-2023 09:43-0500 SaO2% (BldA) [Mass fraction] 99 % Joaquim Noe [facility] 02-13-2023 09:43-0500 Systolic blood pressure 124 mm[Hg] Joaquim Noe [facility] 02-13-2023 08:39-0500 Heart rate 57 /min Joaquim Noe [facility] 02-13-2023 08:39-0500 SaO2% (BldA) [Mass fraction] 98 % Joaquim Noe [facility] 02-13-2023 08:37-0500 Respiratory rate 18 /min Joaquim Noe [facility] 02-13-2023 08:37-0500 Diastolic blood pressure 73 mm[Hg] Joaquim Noe [facility] 02-13-2023 08:37-0500 Mean blood pressure 94 mm[Hg] Joaquimraquel Noe [facility] 02-13-2023 08:37-0500 Systolic blood pressure 136 mm[Hg] Joaquim Noe [facility] 02-13-2023 08:30-0500 Blood Pressure Location Joaquim Noe [facility] 02-13-2023 08:30-0500 Body temperature 98.06 [degF] Joaquim Noe [facility] 02-13-2023 08:30-0500 Diastolic blood pressure 53 mm[Hg] Joaquim Noe [facility] 02-13-2023 08:30-0500 Heart rate 61 /min Joaquim Noe [facility] 02-13-2023 08:30-0500 Mean blood pressure 78 mm[Hg] Joaquim Noe [facility] 02-13-2023 08:30-0500 Respiratory rate 11 /min Joaquim Noe [facility] 02-13-2023 08:30-0500 SaO2% (BldA) [Mass fraction] 97 % Joaquim Noe [facility] 02-13-2023 08:30-0500 Systolic blood pressure 129 mm[Hg] Joaquim Noe [facility] 02-13-2023 08:20-0500 Blood Pressure Location Joaquim Noe [facility] 02-13-2023 08:20-0500 Mean blood pressure 76 mm[Hg] Joaquim Noe [facility] 02-13-2023 08:20-0500 Respiratory rate 9 /min Joaquim Noe [facility] 02-13-2023 08:15-0500 Blood Pressure Location Joaquim Noe [facility] 02-13-2023 08:15-0500 Mean blood pressure 76 mm[Hg] Joaquim Noe [facility] 02-13-2023 08:01-0500 Body temperature 97.16 [degF] Joaquim Noe [facility] 02-13-2023 07:55-0500 Respiratory rate 12 /min Joaquim Noe [facility] 02-13-2023 06:10-0500 Mean blood pressure 85 mm[Hg] Joaquim Noe [facility] 02-13-2023 06:09-0500 BP/Pulse Patient Position Joaquim Noe [facility] 02-13-2023 06:09-0500 Mean blood pressure 87 mm[Hg] Joaquim Noe [facility] 02-13-2023 06:09-0500 Heart rate 60 /min Joaquim Noe [facility] 02-13-2023 06:08-0500 Body temperature 97.7 [degF] Joaquim Noe [facility] 02-03-2023 14:15-0500 Body height 162.56 cm Ashish Chester Other [facility] 02-03-2023 14:15-0500 Body temperature 97.4 [degF] Ashish Chester Other [facility] 02-03-2023 14:15-0500 Diastolic blood pressure 58 mm[Hg] Ashish Chester Other [facility] Other 02-03-2023 14:15-0500 Systolic blood pressure 103 mm[Hg] Ashish Chester Other [facility] Other 12-24-2022 18:02-0400 Hourly Rounding Joaquim Noe [facility] 12-24-2022 18:02-0400 Promise to Return Joaquim Noe [facility] 12-24-2022 18:00-0400 Blood Pressure Location Joaquim Noe [facility] 12-24-2022 18:00-0400 Body temperature 98.06 [degF] Joaquim Noe [facility] 12-24-2022 18:00-0400 Diastolic blood pressure 69 mm[Hg] Joaquim Noe [facility] 12-24-2022 18:00-0400 Heart rate 95 /min Joaquim Noe [facility] 12-24-2022 18:00-0400 Mean blood pressure 82 mm[Hg] Joaquim Noe [facility] 12-24-2022 18:00-0400 Respiratory rate 18 /min Joaquim Noe [facility] 12-24-2022 18:00-0400 SaO2% (BldA) [Mass fraction] 97 % Joaquim Noe [facility] 12-24-2022 18:00-0400 Systolic blood pressure 108 mm[Hg] Joaquim Noe [facility] 12-24-2022 17:41-0400 Hourly Rounding Joaquim Noe [facility] 12-24-2022 17:41-0400 Promise to Return Joaquim Noe [facility] 12-24-2022 16:00-0400 Hourly Rounding Joaquim Noe [facility] 12-24-2022 16:00-0400 Promise to Return Joaquim Noe [facility] 12-24-2022 15:43-0400 Heart rate 67 /min Joaquim Noe [facility] 12-24-2022 15:43-0400 SaO2% (BldA) [Mass fraction] 96 % Joaquim Noe [facility] 12-24-2022 15:42-0400 Body temperature 97.7 [degF] Joaquim Noe [facility] 12-24-2022 15:42-0400 Diastolic blood pressure 67 mm[Hg] Joaquim Noe [facility] 12-24-2022 15:42-0400 Mean blood pressure 87 mm[Hg] Joaquim Noe [facility] 12-24-2022 15:42-0400 Systolic blood pressure 127 mm[Hg] Joaquim Noe [facility] 12-24-2022 13:06-0400 gluc 194 mg/dL Joaquim Noe [facility] 12-24-2022 11:37-0400 Heart rate 67 /min Joaquim Noe [facility] 12-24-2022 11:37-0400 SaO2% (BldA) [Mass fraction] 95 % Joaquim Noe [facility] 12-24-2022 11:37-0400 Diastolic blood pressure 49 mm[Hg] Joaquim Noe [facility] 12-24-2022 11:37-0400 Mean blood pressure 67 mm[Hg] Joqauim Noe [facility] 12-24-2022 11:37-0400 Systolic blood pressure 103 mm[Hg] Joaquim Noe [facility] 12-24-2022 11:37-0400 Body temperature 97.7 [degF] Joaquim Noe [facility] 12-24-2022 07:39-0400 Mean blood pressure 76 mm[Hg] Joaquim Noe [facility] 12-24-2022 07:37-0400 Body temperature 97.7 [degF] Joaquim Noe [facility] 12-24-2022 02:43-0400 Respiratory rate 16 /min Joaquim Rabixo [facility] 12-24-2022 00:01-0400 Body temperature 99.68 [degF] Joaquim Rabixo [facility] 12-24-2022 00:01-0400 Respiratory rate 16 /min Joaquim Rabixo [facility] 12-23-2022 12:00-0400 Blood Pressure Location Joaquim Rabixo [facility] 12-23-2022 12:00-0400 Body temperature 97.34 [degF] Joaquim Rabixo [facility] 12-23-2022 12:00-0400 Heart rate 62 /min Joaquim Rabixo [facility] 12-22-2022 23:45-0400 gluc 123 mg/dL Joaquim Rabixo [facility] 12-22-2022 20:10-0400 Blood Pressure Location Joaquim Rabixo [facility] 12-22-2022 20:10-0400 Mean blood pressure 88 mm[Hg] Joaquim Rabixo [facility] 12-22-2022 12:37-0400 gluc 126 mg/dL Joaquim Rabixo [facility] 12-21-2022 20:00-0400 Mean blood pressure 67 mm[Hg] Joaquim Rabixo [facility] 12-20-2022 19:15-0400 Respiratory rate 16 /min Joaquim Rabixo [facility] 12-20-2022 19:00-0400 Respiratory rate 18 /min Joaquim Rabixo [facility] 12-20-2022 18:45-0400 Respiratory rate 11 /min Joaquim Noe [facility] 12-20-2022 16:21-0400 Heart rate 75 /min Joaquim Noe [facility] 12-19-2022 17:25-0400 Heart rate 66 /min Joaquim Noe [facility] 12-19-2022 16:52-0400 Diastolic blood pressure 46 mm[Hg] Joaquim Noe [facility] 12-19-2022 16:52-0400 Systolic blood pressure 105 mm[Hg] Joaquim Noe [facility] 11-29-2022 12:19-0400 Hourly Rounding Reymundo ARGUETASLIN [facility] 11-29-2022 12:19-0400 Promise to Return Reymundoelver ARGUETASLIN [facility] 11-29-2022 11:43-0400 Hourly Rounding Reymundoelver ARGUETASLIN [facility] 11-29-2022 11:43-0400 Promise to Return Reymundo JULIAN [facility] 11-29-2022 11:25-0400 Heart rate 79 /min Reymundo JULIAN [facility] 11-29-2022 11:25-0400 SaO2% (BldA) [Mass fraction] 92 % Reymundo JULIAN [facility] 11-29-2022 11:22-0400 Diastolic blood pressure 73 mm[Hg] Reymundo JULIAN [facility] 11-29-2022 11:22-0400 Mean blood pressure 97 mm[Hg] Reymundo JULIAN [facility] 11-29-2022 11:22-0400 Systolic blood pressure 143 mm[Hg] Reymundoelver ARGUETASLIN [facility] 11-29-2022 11:22-0400 Body temperature 98.06 [degF] Reymundoelver ARGUETASLIN [facility] 11-29-2022 10:33-0400 Hourly Rounding Reymundo ARGUETASLIN [facility] 11-29-2022 10:33-0400 Promise to Return Reymudnoelver ARGUETASLIN [facility] 11-29-2022 09:40-0400 Diastolic blood pressure 75 mm[Hg] Reymundoelver ARGUETASLIN [facility] 11-29-2022 09:40-0400 Systolic blood pressure 160 mm[Hg] Reymundoelver ARGUETASLIN [facility] 11-29-2022 08:17-0400 Heart rate 83 /min Reymundoelver ARGUETASLIN [facility] 11-29-2022 08:17-0400 SaO2% (BldA) [Mass fraction] 93 % Reymundoelver ARGUETASLIN [facility] 11-29-2022 08:17-0400 Diastolic blood pressure 75 mm[Hg] Reymundoelver ARGUETASLIN [facility] 11-29-2022 08:17-0400 Mean blood pressure 104 mm[Hg] Reymundo JULIAN [facility] 11-29-2022 08:17-0400 Systolic blood pressure 160 mm[Hg] Reymundo JULIAN [facility] 11-29-2022 08:17-0400 Body temperature 97.88 [degF] Reymundoelver ARGUETASLIN [facility] 11-28-2022 23:45-0400 Blood Pressure Location Reymundoelver ARGUETASLIN [facility] 11-28-2022 23:45-0400 Body temperature 97.7 [degF] Reymundoelver ARGUETASLIN [facility] 11-28-2022 23:45-0400 Heart rate 68 /min Reymundoelver ARGUETASLIN [facility] 11-28-2022 23:45-0400 SaO2% (BldA) [Mass fraction] 95 % Reymundo ARGUETASLIN [facility] 11-28-2022 15:54-0400 Mean blood pressure 93 mm[Hg] Reymundoelver ARGUETASLIN [facility] 11-28-2022 15:54-0400 Body temperature 100.22 [degF] Reymundoelver ARGUETASLIN [facility] 11-28-2022 08:40-0400 Blood Pressure Location Reymundoelver ARGUETASLIN [facility] 11-28-2022 08:40-0400 Body temperature 97.88 [degF] Reymundoelver JORDAN [facility] 11-28-2022 08:40-0400 Mean blood pressure 86 mm[Hg] Reymundo ARGUETASLIN [facility] 11-28-2022 08:40-0400 Respiratory rate 16 /min Reymundoelver ARGUETASLIN [facility] 11-28-2022 00:15-0400 Blood Pressure Location Reymundoelver ARGUETASLIN [facility] 11-28-2022 00:15-0400 Respiratory rate 16 /min Reymundoelver ARGUETASLIN [facility] 11-27-2022 16:43-0400 Mean blood pressure 90 mm[Hg] Reymundoelver ARGUETASLIN [facility] 11-27-2022 11:40-0400 Mean blood pressure 79 mm[Hg] Reymundo JULIAN [facility] 11-27-2022 01:48-0400 Heart rate 18 /min Reymundo JULIAN [facility] 11-26-2022 16:27-0400 Heart rate 78 /min Reymundo JULIAN [facility] 11-26-2022 16:27-0400 Respiratory rate 18 /min Reymundo JULIAN [facility] 11-26-2022 11:43-0400 Heart rate 80 /min Reymundo JULIAN [facility] 11-25-2022 17:25-0400 Respiratory rate 13 /min Reymundo JULIAN [facility] 11-25-2022 17:00-0400 Respiratory rate 11 /min Reymundo JULIAN [facility] 11-25-2022 05:43-0400 gluc 98 mg/dL Reymundo JULIAN [facility] 11-24-2022 19:24-0400 gluc 115 mg/dL Reymundo JULIAN [facility] 11-24-2022 19:00-0400 Heart rate 70 /min Reymundo JULIAN [facility] 11-24-2022 12:25-0400 gluc 149 mg/dL Reymundo JULIAN [facility] 10-02-2022 15:23-0400 Body temperature 97.88 [degF] Raul Arnold [facility] 10-02-2022 15:23-0400 Diastolic blood pressure 80 mm[Hg] Raul Arnold [facility] 10-02-2022 15:23-0400 Heart rate 79 /min Raul Arnold [facility] 10-02-2022 15:23-0400 Respiratory rate 16 /min Raul Arnold [facility] 10-02-2022 15:23-0400 SaO2% (BldA) [Mass fraction] 100 % Raul Arnold [facility] 10-02-2022 15:23-0400 Systolic blood pressure 133 mm[Hg] Raul Arnold [facility] 09-04-2022 21:30-0400 Diastolic blood pressure 72 mm[Hg] Hari Michelle [facility] 09-04-2022 21:30-0400 Heart rate 60 /min Hari Michelle [facility] 09-04-2022 21:30-0400 Mean blood pressure 100 mm[Hg] Hari Michelle [facility] 09-04-2022 21:30-0400 Respiratory rate 15 /min Hari Michelle [facility] 09-04-2022 21:30-0400 SaO2% (BldA) [Mass fraction] 97 % Hari Michelle [facility] 09-04-2022 21:30-0400 Systolic blood pressure 155 mm[Hg] Hari Michelle [facility] 09-04-2022 20:40-0400 Body temperature 97.52 [degF] Hari Michelle [facility] 09-04-2022 20:40-0400 Diastolic blood pressure 80 mm[Hg] Hari Michelle [facility] 09-04-2022 20:40-0400 Heart rate 67 /min Hari Michelle [facility] 09-04-2022 20:40-0400 Respiratory rate 17 /min Hari Michelle [facility] 09-04-2022 20:40-0400 SaO2% (BldA) [Mass fraction] 95 % Hari Michelle [facility] 09-04-2022 20:40-0400 Systolic blood pressure 176 mm[Hg] Hari Michelle [facility] 09-04-2022 20:25-0400 Body temperature 97.52 [degF] Hari Michelle [facility] 09-04-2022 20:25-0400 Diastolic blood pressure 75 mm[Hg] Marcelo Link [facility] 09-04-2022 20:25-0400 Heart rate 62 /min Hari Michelle [facility] 09-04-2022 20:25-0400 Respiratory rate 18 /min Hari Michelle [facility] 09-04-2022 20:25-0400 SaO2% (BldA) [Mass fraction] 99 % Hari Michelle [facility] 09-04-2022 20:25-0400 Systolic blood pressure 188 mm[Hg] Hari Michelle [facility] 09-04-2022 19:04-0400 Body temperature 97.88 [degF] Marcelo Link [facility] 09-04-2022 19:04-0400 Diastolic blood pressure 58 mm[Hg] Marcelo Link [facility] 09-04-2022 19:04-0400 Heart rate 63 /min Marcelo Link [facility] 09-04-2022 19:04-0400 Respiratory rate 15 /min Marcelo Link [facility] 09-04-2022 19:04-0400 SaO2% (BldA) [Mass fraction] 98 % Marcelo Link [facility] 09-04-2022 19:04-0400 Systolic blood pressure 139 mm[Hg] Marcelo Link [facility] 09-04-2022 18:32-0400 Body temperature 98.06 [degF] Marcelo Link [facility] 09-04-2022 18:32-0400 Diastolic blood pressure 64 mm[Hg] Marcelo Link [facility] 09-04-2022 18:32-0400 Heart rate 62 /min Marcelo Link [facility] 09-04-2022 18:32-0400 Mean blood pressure 92 mm[Hg] Marcelo Link [facility] 09-04-2022 18:32-0400 Respiratory rate 16 /min Marcelo Link [facility] 09-04-2022 18:32-0400 SaO2% (BldA) [Mass fraction] 97 % Marcelo Link [facility] 09-04-2022 18:32-0400 Systolic blood pressure 149 mm[Hg] Marcelo Link [facility] 09-04-2022 17:15-0400 Body temperature 97.7 [degF] Marcelo Link [facility] 09-04-2022 17:00-0400 Heart rate 64 /min Marcelo Link [facility] 09-04-2022 17:00-0400 Mean blood pressure 96 mm[Hg] Marcelo Link [facility] 09-04-2022 17:00-0400 Systolic blood pressure 137 mm[Hg] Marcelo Link [facility] 09-04-2022 15:10-0400 gluc 241 mg/dL Marcelo Link [facility] 09-04-2022 15:10-0400 gluc Marcelo Link [facility] 09-04-2022 15:00-0400 Hourly Rounding Marcelo Link [facility] 09-04-2022 15:00-0400 Promise to Return Marcelo Link [facility] 08-09-2022 14:34-0400 Body temperature 97.7 [degF] Raul Clayton [facility] 08-09-2022 14:29-0400 Diastolic blood pressure 64 mm[Hg] Raul Arnold [facility] 08-09-2022 14:29-0400 Heart rate 60 /min Raul Clayton [facility] 08-09-2022 14:29-0400 Mean blood pressure 88 mm[Hg] Raul Arnold [facility] 08-09-2022 14:29-0400 Respiratory rate 14 /min Raul Arnold [facility] 08-09-2022 14:29-0400 SaO2% (BldA) [Mass fraction] 95 % Raul Arnold [facility] 08-09-2022 14:29-0400 Systolic blood pressure 136 mm[Hg] Raul Arnold [facility] 08-09-2022 13:45-0400 Diastolic blood pressure 59 mm[Hg] Raul Clayton [facility] 08-09-2022 13:45-0400 Heart rate 62 /min Raul Clayton [facility] 08-09-2022 13:45-0400 Mean blood pressure 83 mm[Hg] Raul Clayton [facility] 08-09-2022 13:45-0400 Respiratory rate 10 /min Raul Clayton [facility] 08-09-2022 13:45-0400 SaO2% (BldA) [Mass fraction] 96 % Raul Clayton [facility] 08-09-2022 13:45-0400 Systolic blood pressure 130 mm[Hg] Raul Clayton [facility] 08-09-2022 13:32-0400 Body temperature 97.52 [degF] Raul Clayton [facility] 08-09-2022 13:32-0400 Diastolic blood pressure 57 mm[Hg] Arul Clayton [facility] 08-09-2022 13:32-0400 Heart rate 66 /min Raul Clayton [facility] 08-09-2022 13:32-0400 Respiratory rate 18 /min Raul Clayton [facility] 08-09-2022 13:32-0400 SaO2% (BldA) [Mass fraction] 95 % Raul Clayton [facility] 08-09-2022 13:32-0400 Systolic blood pressure 130 mm[Hg] Raul Clayton [facility] 08-09-2022 12:19-0400 gluc 212 mg/dL Raul Clayton [facility] 08-09-2022 12:19-0400 gluc Raul Arnold [facility] 08-09-2022 12:17-0400 Body temperature 97.88 [degF] Raul Arnold [facility] 08-09-2022 12:17-0400 Heart rate 74 /min Raul Arnold [facility] 08-09-2022 12:17-0400 Respiratory rate 16 /min Raul Arnold [facility] 07-18-2022 22:45-0400 Body temperature 98.06 [degF] Kaylinn Dokken [facility] 07-18-2022 22:45-0400 Diastolic blood pressure 56 mm[Hg] Kaylinn Dokken [facility] 07-18-2022 22:45-0400 Heart rate 80 /min Kaylinn Dokken [facility] 07-18-2022 22:45-0400 Respiratory rate 18 /min Kaylinn Dokken [facility] 07-18-2022 22:45-0400 SaO2% (BldA) [Mass fraction] 97 % Kaylinn Dokken [facility] 07-18-2022 22:45-0400 Systolic blood pressure 130 mm[Hg] Kaylinn Dokken [facility] 07-18-2022 22:30-0400 Body temperature 98.06 [degF] Kaylinn Dokken [facility] 07-18-2022 22:30-0400 Diastolic blood pressure 58 mm[Hg] Kaylinn Dokken [facility] 07-18-2022 22:30-0400 Heart rate 85 /min Ty Savageen [facility] 07-18-2022 22:30-0400 Respiratory rate 16 /min Jairinn Dokken [facility] 07-18-2022 22:30-0400 SaO2% (BldA) [Mass fraction] 95 % Yulyn Husseinen [facility] 07-18-2022 22:30-0400 Systolic blood pressure 101 mm[Hg] Yulyn Burton [facility] 07-18-2022 16:15-0400 Diastolic blood pressure 84 mm[Hg] Et3 [facility] 07-18-2022 16:15-0400 Heart rate 90 /min Et3 [facility] 07-18-2022 16:15-0400 Respiratory rate 16 /min [facility] 07-18-2022 16:15-0400 SaO2% (BldA) [Mass fraction] 98 % Et3 [facility] 07-18-2022 16:15-0400 Systolic blood pressure 135 mm[Hg] [facility] 04-10-2022 11:05-0500 Diastolic blood pressure 83 mm[Hg] Callahan SALAM [facility] 04-10-2022 11:05-0500 Mean blood pressure 106 mm[Hg] Callahan SALAM [facility] 04-10-2022 11:05-0500 Systolic blood pressure 151 mm[Hg] Callahan SALAM [facility] 04-10-2022 11:02-0500 Blood Pressure Location Callahan SALAM [facility] 04-10-2022 11:02-0500 Diastolic blood pressure 86 mm[Hg] Callahan SALAM [facility] 04-10-2022 11:02-0500 Heart rate 70 /min Callahan SALAM [facility] 04-10-2022 11:02-0500 Respiratory rate 16 /min Callahan SALAM [facility] 04-10-2022 11:02-0500 SaO2% (BldA) [Mass fraction] 98 % Callahan SALAM [facility] 04-10-2022 11:02-0500 Systolic blood pressure 142 mm[Hg] Callahan SALAM [facility] 04-03-2022 18:00-0500 Diastolic blood pressure 54 mm[Hg] Raul Arnold [facility] 04-03-2022 18:00-0500 Heart rate 66 /min Raul Arnold [facility] 04-03-2022 18:00-0500 Mean blood pressure 78 mm[Hg] Raul Arnold [facility] 04-03-2022 18:00-0500 Respiratory rate 11 /min Raul Arnold [facility] 04-03-2022 18:00-0500 SaO2% (BldA) [Mass fraction] 92 % Raul Arnold [facility] 04-03-2022 18:00-0500 Systolic blood pressure 126 mm[Hg] Raul Arnold [facility] 04-03-2022 16:51-0500 Body temperature 98.24 [degF] Raul Arnold [facility] 04-03-2022 16:51-0500 Diastolic blood pressure 72 mm[Hg] Raul Arnold [facility] 04-03-2022 16:51-0500 Heart rate 72 /min Raul Clayton [facility] 04-03-2022 16:51-0500 Respiratory rate 16 /min Raul Arnold [facility] 04-03-2022 16:51-0500 SaO2% (BldA) [Mass fraction] 99 % Raul Arnold [facility] 04-03-2022 16:51-0500 Systolic blood pressure 120 mm[Hg] Raul Arnold [facility] 04-03-2022 16:36-0500 Body temperature 98.24 [degF] Raul Arnold [facility] 04-03-2022 16:36-0500 Diastolic blood pressure 52 mm[Hg] Raul Arnold [facility] 04-03-2022 16:36-0500 Heart rate 71 /min Raul Arnold [facility] 04-03-2022 16:36-0500 Respiratory rate 16 /min Raul Arnold [facility] 04-03-2022 16:36-0500 SaO2% (BldA) [Mass fraction] 99 % Raul Arnold [facility] 04-03-2022 16:36-0500 Systolic blood pressure 135 mm[Hg] Raul Arnold [facility] 04-02-2022 10:15-0500 Diastolic blood pressure 69 mm[Hg] Brady Marinelli [facility] 04-02-2022 10:15-0500 Heart rate 66 /min Brady Marinelli [facility] 04-02-2022 10:15-0500 Respiratory rate 20 /min Brady Marinelli [facility] 04-02-2022 10:15-0500 SaO2% (BldA) [Mass fraction] 97 % Brady Marinelli [facility] 04-02-2022 10:15-0500 Systolic blood pressure 150 mm[Hg] Brady Marinelli [facility] 04-02-2022 09:44-0500 Body temperature 97.52 [degF] Brady Marinelli [facility] 04-02-2022 09:44-0500 Diastolic blood pressure 81 mm[Hg] Brady Marinelli [facility] 04-02-2022 09:44-0500 Heart rate 64 /min Brady Marinelli [facility] 04-02-2022 09:44-0500 Respiratory rate 20 /min Brady Marinelli [facility] 04-02-2022 09:44-0500 SaO2% (BldA) [Mass fraction] 95 % Brady Marinelli [facility] 04-02-2022 09:44-0500 Systolic blood pressure 138 mm[Hg] Brady Marinelli [facility] 03-13-2022 19:11-0500 Diastolic blood pressure 45 mm[Hg] Raul Clayton [facility] 03-13-2022 19:11-0500 Heart rate 65 /min Raul Arnold [facility] 03-13-2022 19:11-0500 Mean blood pressure 74 mm[Hg] Raul Arnold [facility] 03-13-2022 19:11-0500 Respiratory rate 18 /min Raul Arnold [facility] 03-13-2022 19:11-0500 SaO2% (BldA) [Mass fraction] 99 % Raul Clayton [facility] 03-13-2022 19:11-0500 Systolic blood pressure 133 mm[Hg] Raul Clayton [facility] 03-13-2022 18:00-0500 Diastolic blood pressure 56 mm[Hg] Raul Clayton [facility] 03-13-2022 18:00-0500 Heart rate 66 /min Raul Clayton [facility] 03-13-2022 18:00-0500 SaO2% (BldA) [Mass fraction] 91 % Raul Clayton [facility] 03-13-2022 18:00-0500 Systolic blood pressure 171 mm[Hg] Raul Clayton [facility] 03-13-2022 16:38-0500 Body temperature 97.52 [degF] Raul Clayton [facility] 03-13-2022 16:38-0500 Diastolic blood pressure 61 mm[Hg] Raul Clayton [facility] 03-13-2022 16:38-0500 Heart rate 67 /min Raul Clayton [facility] 03-13-2022 16:38-0500 Mean blood pressure 94 mm[Hg] Raul Clayton [facility] 03-13-2022 16:38-0500 Respiratory rate 18 /min Raul Clayton [facility] 03-13-2022 16:38-0500 SaO2% (BldA) [Mass fraction] 95 % Raul Clayton [facility] 03-13-2022 16:38-0500 Systolic blood pressure 160 mm[Hg] Raul Arnold [facility] 02-08-2022 22:25-0500 Diastolic blood pressure 77 mm[Hg] Orquideaylinn Dokken [facility] 02-08-2022 22:25-0500 Heart rate 79 /min Jairinn Dokken [facility] 02-08-2022 22:25-0500 Respiratory rate 18 /min Yulyn Dokken [facility] 02-08-2022 22:25-0500 SaO2% (BldA) [Mass fraction] 96 % Yulyn Dokken [facility] 02-08-2022 22:25-0500 Systolic blood pressure 185 mm[Hg] Orquideaylinn Dokken [facility] 02-08-2022 21:51-0500 Diastolic blood pressure 79 mm[Hg] Orquideaylinn Dokken [facility] 02-08-2022 21:51-0500 Heart rate 78 /min Yulyn Dokken [facility] 02-08-2022 21:51-0500 Hourly Rounding Yulyn Dokken [facility] 02-08-2022 21:51-0500 Nursing Progress Note Reason Other: Pt mediciated per orders. Call light in reach. Denies any needs at this time. Jairinn Dokken [facility] 02-08-2022 21:51-0500 Respiratory rate 18 /min Jairinn Dokken [facility] 02-08-2022 21:51-0500 SaO2% (BldA) [Mass fraction] 96 % Yulyn Dokken [facility] 02-08-2022 21:51-0500 Systolic blood pressure 176 mm[Hg] Jairinn Dokken [facility] 02-08-2022 21:15-0500 Diastolic blood pressure 66 mm[Hg] Jairinn Dokken [facility] 02-08-2022 21:15-0500 Heart rate 74 /min Yulyn kken [facility] 02-08-2022 21:15-0500 Hourly Rounding Yulyn kkjohnny [facility] 02-08-2022 21:15-0500 Nursing Progress Note Reason Other: UA obtained and sent to lab. Ty Manrique [facility] 02-08-2022 21:15-0500 Respiratory rate 18 /min Ty Duvallkken [facility] 02-08-2022 21:15-0500 SaO2% (BldA) [Mass fraction] 96 % Yulyn Dokken [facility] 02-08-2022 21:15-0500 Systolic blood pressure 154 mm[Hg] Jairinn Dokken [facility] 02-08-2022 20:30-0500 Body temperature 98.24 [degF] Jairinn Dokken [facility] 02-03-2022 05:00-0500 Body temperature 98.24 [degF] Vadim Naseem [facility] 02-03-2022 05:00-0500 Diastolic blood pressure 66 mm[Hg] Vadim Naseem [facility] 02-03-2022 05:00-0500 Heart rate 63 /min Vadim Naseem [facility] 02-03-2022 05:00-0500 Mean blood pressure 95 mm[Hg] Vadim Naseem [facility] 02-03-2022 05:00-0500 Respiratory rate 13 /min Vadim Naseem [facility] 02-03-2022 05:00-0500 SaO2% (BldA) [Mass fraction] 90 % Vadim Naseem [facility] 02-03-2022 05:00-0500 Systolic blood pressure 153 mm[Hg] Vadim Naseem [facility] 02-03-2022 04:00-0500 Body temperature 98.6 [degF] Vadim Naseem [facility] 02-03-2022 04:00-0500 Diastolic blood pressure 69 mm[Hg] Vadim Naseem [facility] 02-03-2022 04:00-0500 Mean blood pressure 99 mm[Hg] Vadim Naseem [facility] 02-03-2022 04:00-0500 Respiratory rate 14 /min Vadim Naseem [facility] 02-03-2022 04:00-0500 SaO2% (BldA) [Mass fraction] 92 % Vadim Naseem [facility] 02-03-2022 04:00-0500 Systolic blood pressure 159 mm[Hg] Vadim Naseem [facility] 02-03-2022 03:00-0500 Mean blood pressure 100 mm[Hg] Vadim Naseem [facility] 02-03-2022 03:00-0500 Respiratory rate 39 /min Vadim Naseem [facility] 02-03-2022 03:00-0500 SaO2% (BldA) [Mass fraction] 91 % Vadim Gusman [facility] 02-03-2022 03:00-0500 Systolic blood pressure 163 mm[Hg] Vadim Gusman [facility] 02-03-2022 01:14-0500 gluc 186 mg/dL Vadim Gusman [facility] 02-03-2022 01:14-0500 gluc Vadim Gusman [facility] 02-03-2022 01:10-0500 Heart rate 70 /min Vadim Gusman [facility] 02-03-2022 01:10-0500 Respiratory rate 20 /min Vadim Gusman [facility] 02-02-2022 14:00-0400 Blood Pressure Location [facility] 02-02-2022 14:00-0400 BP/Pulse Patient Position [facility] 02-02-2022 14:00-0400 Respiratory rate 18 /min [facility] 02-02-2022 13:00-0400 Hourly Rounding [facility] 02-02-2022 12:33-0400 Hourly Rounding [facility] 02-02-2022 12:33-0400 Promise to Return [facility] 02-02-2022 11:09-0400 Body temperature 97.88 [degF] [facility] 02-02-2022 11:09-0400 Diastolic blood pressure 75 mm[Hg] [facility] 02-02-2022 11:09-0400 Heart rate 65 /min [facility] 02-02-2022 11:09-0400 Mean blood pressure 101 mm[Hg] [facility] 02-02-2022 11:09-0400 SaO2% (BldA) [Mass fraction] 94 % [facility] 02-02-2022 11:09-0400 Systolic blood pressure 154 mm[Hg] [facility] 02-02-2022 11:09-0400 Respiratory rate 20 /min [facility] 02-02-2022 11:00-0400 Hourly Rounding [facility] 02-02-2022 08:58-0400 Promise to Return [facility] 02-02-2022 07:29-0400 Body temperature 97.88 [degF] [facility] 02-02-2022 07:29-0400 Diastolic blood pressure 65 mm[Hg] [facility] 02-02-2022 07:29-0400 Heart rate 69 /min [facility] 02-02-2022 07:29-0400 Mean blood pressure 95 mm[Hg] [facility] 02-02-2022 07:29-0400 SaO2% (BldA) [Mass fraction] 92 % [facility] 02-02-2022 07:29-0400 Systolic blood pressure 153 mm[Hg] [facility] 02-02-2022 06:21-0400 Promise to Return [facility] 02-02-2022 02:05-0400 Body temperature 97.7 [degF] [facility] 02-02-2022 02:05-0400 Diastolic blood pressure 62 mm[Hg] [facility] 02-02-2022 02:05-0400 Heart rate 73 /min [facility] 02-02-2022 02:05-0400 Mean blood pressure 78 mm[Hg] [facility] 02-02-2022 02:05-0400 SaO2% (BldA) [Mass fraction] 93 % [facility] 02-02-2022 02:05-0400 Systolic blood pressure 112 mm[Hg] [facility] 02-01-2022 21:24-0400 gluc 261 mg/dL [facility] 02-01-2022 19:35-0400 Blood Pressure Location [facility] 02-01-2022 19:35-0400 BP/Pulse Patient Position [facility] 02-01-2022 19:35-0400 Respiratory rate 16 /min [facility] 02-01-2022 16:59-0400 gluc 225 mg/dL [facility] 02-01-2022 16:11-0400 Blood Pressure Location [facility] 02-01-2022 16:11-0400 BP/Pulse Patient Position [facility] 02-01-2022 11:11-0400 Mean blood pressure 123 mm[Hg] [facility] 02-01-2022 08:33-0400 Heart rate 78 /min [facility] 02-01-2022 08:08-0400 gluc 119 mg/dL [facility] 02-01-2022 05:20-0400 Heart rate 88 /min [facility] 02-01-2022 03:08-0400 Mean blood pressure 82 mm[Hg] [facility] 02-01-2022 01:01-0400 Mean blood pressure 88 mm[Hg] [facility] 01-31-2022 21:13-0400 Heart rate 83 /min [facility] 01-30-2022 14:00-0400 Mean blood pressure 88 mm[Hg[facility] 01-30-2022 12:19-0400 Hourly Rounding [facility] 01-30-2022 12:19-0400 [facility] 01-30-2022 12:00-0400 Body temperature 98.06 [degF] [facility] 01-30-2022 12:00-0400 Diastolic blood pressure 72 mm[Hg] [facility] 01-30-2022 12:00-0400 Heart rate 71 /[facility] 01-30-2022 12:00-0400 SaO2% (BldA) [Mass fraction] 96 % [facility] 01-30-2022 12:00-0400 Systolic blood pressure 122 mm[Hg] [facility] 01-30-2022 11:19-0400 [facility] 01-30-2022 11:19-0400 Promise to Return [facility] 01-30-2022 10:48-0400 [facility] 01-30-2022 10:48-0400 [facility] 01-30-2022 08:00-0400 Body temperature 97.52 [degF] [facility] [facility] 01-30-2022 08:00-0400 Diastolic blood pressure 49 mm[Hg] [facility] 01-30-2022 08:00-0400 Heart rate 79 /min [facility] 01-30-2022 08:00-0400 SaO2% (BldA) [Mass fraction] 91 % [facility] 01-30-2022 08:00-0400 Systolic blood pressure 132 mm[Hg] mad [facility] 01-30-2022 06:00-0400 Diastolic blood pressure 46 mm[Hg] [facility] 01-30-2022 06:00-0400 Heart rate 64 /min [facility] 01-30-2022 06:00-0400 Mean blood pressure 70 mm[Hg] [facility] 01-30-2022 06:00-0400 Respiratory rate 19 /min [facility] 01-30-2022 06:00-0400 SaO2% (BldA) [Mass fraction] 94 % [facility] 01-30-2022 06:00-0400 Systolic blood pressure 110 mm[Hg] [facility] 01-30-2022 05:00-0400 Respiratory rate 14 /min ramona [facility] 01-30-2022 04:00-0400 Body temperature 97.88 [degF] [facility] 01-30-2022 04:00-0400 Mean blood pressure 73 mm[Hg] [facility] 01-30-2022 00:00-0400 Body temperature 97.52 [degF] [facility] 01-29-2022 19:00-0400 Body temperature 98.06 [degF] [facility] 01-29-2022 16:31-0400 gluc 154 mg/dL [facility] 01-29-2022 11:00-0400 gluc 211 mg/dL [facility] 01-29-2022 08:00-0400 gluc 130 mg/dL [facility] 01-29-2022 07:00-0400 Blood Pressure Location [facility] 01-28-2022 19:00-0400 Respiratory rate 14 /min [facility] 01-28-2022 18:14-0400 Heart rate 73 /min ramona [facility] 01-28-2022 18:14-0400 Respiratory rate 15 /min ramona [facility] 01-28-2022 17:00-0400 Respiratory rate 18 /min [facility] 01-28-2022 12:01-0400 Heart rate 99 /min Ahmad Hailey [facility] 01-27-2022 17:31-0400 Diastolic blood pressure 60 mm[Hg] [facility] 01-27-2022 17:31-0400 Heart rate 63 /min [facility] 01-27-2022 17:31-0400 Mean blood pressure 99 mm[Hg] [facility] 01-27-2022 17:31-0400 Respiratory rate 20 /min [facility] 01-27-2022 17:31-0400 SaO2% (BldA) [Mass fraction] 97 % [facility] 01-27-2022 17:31-0400 Systolic blood pressure 177 mm[Hg] [facility] 01-27-2022 16:59-0400 Diastolic blood pressure 81 mm[Hg] [facility] 01-27-2022 16:59-0400 Heart rate 68 /min [facility] 01-27-2022 16:59-0400 Mean blood pressure 117 mm[Hg] [facility] 01-27-2022 16:59-0400 Respiratory rate 19 /min [facility] 01-27-2022 16:59-0400 SaO2% (BldA) [Mass fraction] 97 % [facility] 01-27-2022 16:59-0400 Systolic blood pressure 190 mm[Hg] [facility] 01-27-2022 16:00-0400 Diastolic blood pressure 73 mm[Hg] [facility] 01-27-2022 16:00-0400 Mean blood pressure 106 mm[Hg] [facility] 01-27-2022 16:00-0400 SaO2% (BldA) [Mass fraction] 99 % [facility] 01-27-2022 16:00-0400 Systolic blood pressure 171 mm[Hg] [facility] 01-27-2022 14:45-0400 Body temperature 97.88 [degF] [facility] 01-27-2022 14:45-0400 Heart rate 65 /min [facility] 11-17-2021 19:35-0400 Diastolic blood pressure 83 mm[Hg] Brady Godfreye [facility] 11-17-2021 19:35-0400 Heart rate 73 /min Brady Godfreye [facility] 11-17-2021 19:35-0400 Hourly Rounding Brady Godfreye [facility] 11-17-2021 19:35-0400 Respiratory rate 18 /min Brady Godfreye [facility] 11-17-2021 19:35-0400 SaO2% (BldA) [Mass fraction] 94 % Brady Yves [facility] 11-17-2021 19:35-0400 Systolic blood pressure 186 mm[Hg] Brady Yves [facility] 11-17-2021 18:28-0400 Diastolic blood pressure 59 mm[Hg] Brady Yves [facility] 11-17-2021 18:28-0400 Heart rate 69 /min Brady Yves [facility] 11-17-2021 18:28-0400 Mean blood pressure 96 mm[Hg] Brady Yves [facility] 11-17-2021 18:28-0400 Respiratory rate 14 /min Brady Yves [facility] 11-17-2021 18:28-0400 SaO2% (BldA) [Mass fraction] 93 % Brady Yves [facility] 11-17-2021 18:28-0400 Systolic blood pressure 171 mm[Hg] Brady Marinelli [facility] 11-17-2021 17:30-0400 Body temperature 97.88 [degF] Brady Marinelli [facility] 11-17-2021 17:30-0400 Diastolic blood pressure 75 mm[Hg] Brady Marinelli [facility] 11-17-2021 17:30-0400 Heart rate 78 /min Brady Marinelli [facility] 11-17-2021 17:30-0400 Respiratory rate 20 /min Brady Marinelli [facility] 11-17-2021 17:30-0400 SaO2% (BldA) [Mass fraction] 95 % Brady Marinelli [facility] 11-17-2021 17:30-0400 Systolic blood pressure 144 mm[Hg] Brady Marinelli [facility] Encounters Encounter Date Encounter Type Care Provider Facility Start: 03-12-2023 End: 03-27-2023 Pre-admission assessment Joaquim Noe [facility] Start: 03-03-2023 End: 03-03-2023 ambulatory Ashish Chester Other [facility] Other Start: 03-03-2023 Office outpatient vi sit 25 minutes Asihsh Chester [facility] Infectious Disease Start: 02-13-2023 End: 02-13-2023 ambulatory Joaquim Noe Facility:[facility] Start: 02-13-2023 End: 02-13-2023 Admission to same day surgery center Joaquim Noe [facility] Start: 02-03-2023 End: 02-03-2023 ambulatory Ashish Chester Other [facility] Other Start: 02-03-2023 Office outpatient vi sit 25 minutes Ashish Chester [facility] Start: 01-13-2023 End: 01-13-2023 ambulatory Ashish Chester Other [facility] Other Start: 01-13-2023 Telephone encounter Ashish Chester [facility] Infect[facility] Start: 12-19-2022 End: 12-24-2022 Evaluation and management of inpatient Joaquim Noe Facility:[facility] Start: 12-19-2022 End: 12-24-2022 Evaluation and management of inpatient Joaquim Arnold Hasmukh [facility] Start: 12-08-2022 End: 12-09-2022 ambulatory DO Emely Mccall Facility:CD:[id number] Start: 12-08-2022 End: 12-08-2022 Off-Site [facility] Start: 12-05-2022 ambulatory Brady Marinelli Facility:[facility] Start: 12-03-2022 End: 12-04-2022 ambulatory José MENESES Facility:CD:[id number] Start: 12-03-2022 End: 12-03-2022 Off-Site [facility] Start: 11-29-2022 End: 12-19-2022 ambulatory Joaquim Arnold Hasmukh Facility:[facility] Start: 11-24-2022 End: 11-29-2022 Evaluation and management of inpatient Joaquim Arnold Hasmukh Facility:[facility] Start: 11-24-2022 End: 11-29-2022 Evaluation and management of inpatient Reymundo A JULIAN [facility] Start: 10-02-2022 End: 10-02-2022 Emergency department patient visit Raul Arnold Facility:[facility] Start: 10-02-2022 End: 10-02-2022 Emergency department patient visit Raul Arnold [facility] Start: 09-04-2022 End: 09-04-2022 Emergency department patient visit Hari Martinez Facility:[facility] Start: 09-04-2022 End: 09-04-2022 Emergency department patient visit Hari Martinez [facility] Start: 09-04-2022 End: 09-04-2022 Emergency department patient visit Earnest Guveara Facility:[facility] Start: 09-04-2022 End: 09-04-2022 Emergency department patient visit Marcelo Call [facility] Start: 08-09-2022 End: 08-09-2022 Emergency department patient visit Raul Arnold Facility:[facility] Start: 08-09-2022 End: 08-09-2022 Emergency department patient visit Raul Arnold [facility] Start: 07-19-2022 End: 07-19-2022 Emergency department patient visit DO Ty Manrique Facility:[facility] Start: 07-18-2022 End: 07-18-2022 Emergency department patient visit Ty Manrique [facility] Start: 07-18-2022 End: 08-09-2022 ambulatory UNKNOWN PROVIDER Facility:[facility] Start: 07-18-2022 End: 07-18-2022 ambulatory [facility] Start: 07-18-2022 End: 07-18-2022 Emergency department patient visit [facility] Triage, Treat and Transport Comment on above: Arrived Start: 05-09-2022 End: 05-10-2022 ambulatory [facility] Facility:[facility] Start: 04-26-2022 End: 04-26-2022 Emergency department patient visit Raul Arnold Facility:[facility] Start: 04-10-2022 End: 04-11-2022 ambulatory [facility] Facility:[facility] Start: 04-10-2022 End: 04-10-2022 Patient encounter procedure Callahan SALAM [facility] Start: 04-03-2022 End: 04-03-2022 Emergency department patient visit Raul Arnold Facility:[facility] Start: 04-03-2022 End: 04-03-2022 Emergency department patient visit Raul Arnold [facility] Start: 04-02-2022 End: 04-02-2022 Emergency department patient visit Brady Marinelli Facility:[facility] Start: 04-02-2022 End: 04-02-2022 Emergency department patient visit Brady Marinelli [facility] Start: 03-13-2022 End: 03-13-2022 Emergency department patient visit Raul Arnold [facility] Start: 03-05-2022 End: 03-05-2022 Patient encounter procedure Marcelo C Link [facility] Start: 02-13-2022 End: 02-13-2022 Patient encounter procedure Marcelo C Link [facility] Start: 02-08-2022 End: 02-08-2022 Emergency department patient visit Ty Manrique [facility] Start: 02-03-2022 End: 02-03-2022 Emergency department patient visit Vadim Gusman [facility] Start: 01-31-2022 End: 02-02-2022 Observation Kilo HARRIS [facility] Start: 01-29-[address] Chuck lee [facility] Facility: Start: 01-28-2022 End: 01-30-2022 Observation Nomi Glorianichole [facility] Start: 01-28-2022 End: 01-28-2022 Patient encounter procedure Jean Claude Beyerjennifer [facility] Start: 01-27-2022 End: 01-27-2022 Emergency department patient visit Earnest Guevara [facility] Start: 11-17-2021 End: 11-17-2021 Emergency department patient visit Brady Marinelli [facility] Start: 11-09-2021 End: 11-09-2021 Patient encounter procedure Marcelo Call [facility] Start: 11-08-2021 End: 11-14-2021 Pre-admission assessment Marcelo Rivers Link [facility] Start: 10-15-2021 End: 10-15-2021 Patient encounter procedure Marcelo Rivers Link [facility] Procedures Date Procedure Procedure Detail Performing [...] for malign ant neoplasm of colon Colonoscopy [facility] Immunizations Immunization Date Immunization Notes Care Provider Fa melisa 07-30-2020 SARS-CoV-2 (COVID-19 ) mRNA BNT-162b2 vax Jena Claude Akkina [facility] 07-10-2020 SARS-CoV-2 (COVID-19 ) mRNA BNT-162b2 vax Jean Claude Akkina [facility] 03-01-2020 influenza virus vaccine, unspecified formulation Jean Claude Akkina [facility] 03-31-2019 SARS-CoV-2 (COVID-19 ) mRNA BNT-162b2 vax Marcelo Link [facility] 12-30-2018 influenza virus vaccine, unspecified formulation Jean Claude Akkina [facility] 12-30-2017 influenza virus vaccine, unspecified formulation Jean Claude Akkina [facility] 06-10-2013 pneumococcal conjuga te vaccine, 13 valent Jean Clauderocio Schaeffer [facility] 06-10-2013 influenza, seasonal, injectable Marcelo Link [facility] 06-10-2013 pneumococcal polysaccharide vaccine, 23 valent Marcelo Link [facility] 10-30-2010 tetanus toxoid, redu polina diphtheria toxoid, and acellular pertussis vaccine, adsorbed Marcelo Link [facility] Comment on above: Early/Late Reason: O THER: 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 reports that she had an Adacel injection less than 5 years ago. Payers Date Payer Category Payer Medicaid [id number] 2021 Unknown [id number] 1955 Unknown [id number] [id number] 1955 Unknown [id number] . [id number] 1954 Unknown [id number] 2.. 840.1.762683.3.579.2.732 1954 Unknown [id number] 2.16.8 40.1.873814.3.579.2.727 1954 Unknown [id number] 2.16. 40.1.101706.3.579.2.727 1954 Unknown [id number] 2.16.8 40.1.601261.3.579.2.727 1954 Unknown [id number] 2.16.8 40.1.174057.3.579.2.72 1954 Unknown [id number] 2.16.8 40.1.147999.3.579.2.72 1954 Unknown [id number] 2.16.8 40.1.369341.3.579.2. 1954 Unknown [id number] 2.16.8 40.1.550349.3.579.2. 1954 Unknown [id number] 2.16.8 40.1.184729.3.579.2. 1954 Unknown [id number] 2.16.8 40.1.255374.3.579.2. 1954 Unknown [id number] 2.16.8 40.1.505110.3.579.2. 1954 Unknown [id number] 2.16.8 40.1.228407.3.579.2. 1954 Unknown [id number] 2.16.8 40.1.517618.3.579.2. 1954 Unknown [id number] 2.16.8 40.1.239671.3.579.2. 1954 Unknown [id number] 2.16.8 40.1.550082.3.579.2. 1954 Unknown [id number] 2.16.8 40.1.741720.3.579.2.72 1954 Unknown [id number] 2.16.8 40.1.080254.3.579.2 1954 Unknown [id number] 2.16.8 40.1.771329.3.579.2.727 Social History Date Type Detail Facility Start: 01-19-2021 End: 07-18-2022 Tobacco smoking status Never smoked tobacco (finding) [facility] Tobacco smoking status Never [facility] Sex Assigned At Female [facility] Tobacco smoking status NHIS [facility] Start: 1955 Sex Assigned At Not on file [facility] Tobacco [facility] Comment on above: denies Tobacco smoking status No Smoking Status Entered [facility] Medical Equipment Procedure Code Equipment Code Equipment Origin al Text Equipment Identifier Dates HIP BIPOLAR ARTHROPLASTY Joaquim Noe DO 11/25/22 Non Biological Hip R {[id number]{ [id number]}[id number] FDA Start: 11-25-2022 HIP TOTAL ARTHRO PLASTY [...] Assessment Result Facility 02-12-2023 Functional Status No [facility] 12-19-2022 Functional Status N/A [facility] 11-24-2022 Functional Status No [facility] 11-24-2022 Functional Status [facility] 10-02-2022 Functional Status N/A [facility] 09-04-2022 Functional Status N/A [facility] 09-04-2022 Functional Status N/A [facility] 08-09-2022 Functional Status N/A [facility] 07-18-2022 Functional Status N/A [facility] 04-10-2022 Functional Status N/A [facility] 04-03-2022 Functional Status N/A [facility] 04-02-2022 Functional Status N/A [facility] 03-13-2022 Functional Status N/A [facility] 02-08-2022 Functional Status N/A [facility] 02-03-2022 Functional Status N/A [facility] 02-01-2022 Functional Status No [facility] 01-31-2022 Functional Status [facility] 01-28-2022 Functional Status N/A [facility] 01-28-2022 Functional Status [facility] 01-27-2022 Functional Status N/A [facility] 11-17-2021 Functional Status N/A [facility] Clinical Notes 11-17-2021 to 03-20-2023 Note Date & Type Note Facility 03-20-2023 Note [id number]#[id number] [facility] 03-03-2023 Evaluation note Encounter Date Diagnosis Assessment [...] of diseases classified elsewhere (ICD-10 - B96.89) [facility] Other [id number] Evaluation + Plan noteExtracted from: Title:ANES Post-operative Note - General Author: Can Kaplan Jr., DO Date:02/13/23 Plan Transfer/Discharge: Transfer/Discharge Discharge when meets criteria ( From PACU to Ambulatory Surgery Unit, and To home ). Extracted from: Title:ANES Pre-operative Note - Adult Author:Can Chapa Jr., DO Date:02/13/23 Plan [place] [employer] (ASA) physical status classification: Class III. Anesthetic Preoperative Plan: Anesthesia General. Future Scheduled Tests Radiology* NM Gastric Emptying Study 04/10/22 [facility]11-16-2023 Hospital Discharge instructions Patient Education 02/13/2023 08:20:41 Post Op Patient Instructions - FT (Custom) (CUSTOM) 02/13/2023 07:23:07 Henri Noe - Hip Injection with Anesthesia (Custom) [place], [place] [facility] HIP INJECTION WITH ANESTHESIA [...] persistent vomiting. Joaquim Noe DO [facility] [address] [place], [place] [id number] Reviewed: [facility]11-06-2023 Evaluation note* Encounter Date Diagnosis Assessment [...] of diseases classified elsewhere (ICD-10 - B96.89) [facility] 10-31-2023 Note [id number] [facility] 01-27-2023 NoteFisher [facility]:Result Comment: printed and restickered and scanned to proper finElectronically Signed By: Joaquim Noe DO\.br\Date and Time Signed: 01/24/23 18:47 [id number] Note [id number] Discharge instructions Patient Education [...] Follow these instructions at home: Medicines Take gvac-qdd-pzfigpe and prescription medicines only as told by [...] and water are not available, use hand molder. Keep all follow-up visits. This is important. [...] provider. Document Revised: 02/06/2022 Document Reviewed: 02/06/2022 [employer] Patient Education 2022 [employer]. Follow Up Care 12/19/2022 11:45:54 With:Joaquim Noe Address: [address] [place] [address] Business (1) When: Unknown Comments:Call for followup appointment With:Ashish Chester Address: [address] [place] [address] Business (1) When:2 weeks Comments:Call for followup appointment With:Marcelo Call Address: [address], [facility] [address] [place] [address] Business (1) When: Unknown [facility]09-26-2023 Evaluation + Plan noteExtracted from: Title:APSO [...] Started patient on MiraLAX for constipation. Ordered: [facility] Hospital Care/Day Moderate 35 Minutes [id number] 2. Acute blood loss anemia (D62: Acute posthemorrhagic anemia) From recent admission. Hemoglobin stable. Continue on ferrous sulfate. Ordered: [facility] Hospital Care/Day Moderate 35 Minutes [id number] 3. 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 Ordered: [facility] Hospital Care/Day Moderate 35 Minutes [id number] 4. HTN (hypertension) (I10: Essential (primary) hypertension) Blood pressure controlled. Continue on Coreg and lisinopril. Ordered: [facility] Hospital Care/Day Moderate 35 Minutes [id number] 5. Hypothyroidism (E03.9: Hypothyroidism, unspecified) Stable. On Synthroid. Disposition: To intermediate facility when arranged. I discussed the diagnosis and plan of care with the patient at the bedside. Moderate level of MDM based on addressing above issues. This documentation was transcribed using voice recognition software. Several attempts were made to ensure accuracy. However inadvertent computerized athletic turf worker errors may be present. Soni Padgett. Hospitalist. Ordered: [facility] Hospital Care/Day Moderate 35 Minutes [id number] Orders: bisacodyl, 10 mg = 2 tab(s), [...] PICC line. Infectious disease consult pending. Ordered: [facility] Hospital Care/Day Moderate 35 Minutes [id number] 2. Acute blood loss anemia (D62: Acute posthemorrhagic anemia) From recent admission. Hemoglobin above 7.0. No need for blood transfusion. Continue on ferrous sulfate. Ordered: [facility] Hospital Care/Day Moderate 35 Minutes [id number] 3. 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 Ordered: [facility] Hospital Care/Day Moderate 35 Minutes [id number] 4. HTN (hypertension) (I10: Essential (primary) hypertension) Blood pressure fairly controlled. Continue on Coreg, lisinopril. Ordered: [facility] Hospital Care/Day Moderate 35 Minutes [id number] 5. Hypothyroidism (E03.9: Hypothyroidism, unspecified) Continue Synthroid. Disposition: Pending final wound culture results and final infectious disease recommendations. I discussed the diagnosis and plan of care with the patient at the bedside. Moderate level of MDM based on addressing above issues. This documentation was transcribed using voice recognition software. Several attempts were made to ensure accuracy. However inadvertent computerized athletic turf worker errors may be present. Soni Padgett. Hospitalist. Ordered: [facility] Hospital Care/Day Moderate 35 Minutes [id number] Extracted from: Title:Progress/SOAP Note Author:Rosalia Grossman DO [...] Ordered: Initial Hospital Care/Day Moderate 55 Minutes [id number] 2. Diabetes mellitus with polyneuropathy (E11.42: Type 2 diabetes mellitus with diabetic polyneuropathy) Sliding scale insulin for diabetes plus that she takes from home Ordered: Initial Hospital Care/Day Moderate 55 Minutes [id number] 3. HTN (hypertension) (I10: Essential (primary) hypertension) On lisinopril and carvedilol from home; we also resumed her atorvastatin Ordered: Initial Hospital Care/Day Moderate 55 Minutes [id number] PLAN: 1. Patient is on daptomycin 2. [...] Author:Cruzito em MD, Ahmad F Date:12/20/22 Plan [place] [employer] (ASA) physical status classification: [...] Tests Radiology* NM Gastric Emptying Study 04/10/22 [facility]09-10-2023 Hospital Discharge instructions Follow Up Care 12/08/2022 11:51:54 With:Emely Mccall DO, FAM Address: When:Within 1 Month(s) [facility] 09-01-2023 Evaluation + Plan noteExtracted from: Title:Discharge Note Author:FALLON BANKS, Soni Almaguer ate:11/29/22 Stable. Discharge To, Anticipated II - Care Home Unit Discharged to - Home independently Discharge [...] Link Only if needed [address], [facility] [address] [place] [address]- [place] (1) Additional Instructions: Joaquim Noe Within 2 to 4 weeks [address] [place], [place] [address] [place] (1) Additional Instructions: Call for followup appointment [...] physical therapy pending precertification to SNF. Ordered: [facility] Hospital Care/Day Moderate 35 Minutes [id number] 2. Fall (W19.XXXA: Unspecified fall, initial encounter) Mechanical fall. Stable. Ordered: [facility] Hospital Care/Day Moderate 35 Minutes 94038 3. Acute blood loss anemia (D62: Acute posthemorrhagic anemia) Acute blood loss anemia in the perioperative period. Patient received 1 unit of packed red blood cell transfusion and hemoglobin is stable at around 8.6. She also received IV iron infusions. Continue on oral iron. Or[facility]/Day Moderate 35 Minutes 16401 4. Hypertension (I10: Essential (primary) hypertension) Blood pressure fairly controlled. Continue on Coreg and lisinopril. Ordered: [facility] Hospital Care/Day Moderate 35 Minutes 23117 5. Hyperlipidemia (E78.5: Hyperlipidemia, unspecified) Stable. On Lipitor. Ordered: [facility] Hospital Care/Day Moderate 35 Minutes 82488 6. Diabetes (E11.9: Type 2 diabetes mellitus [...] for prophylactic measures, unspecified) Lovenox. Disposition: To intermediate facility pending precertification. I discussed the diagnosis and plan of care with the patient at the bedside. Moderate level of MDM based on addressing above issues. This documentation was transcribed using voice recognition software. Several attempts were made to ensure accuracy. However inadvertent computerized athletic turf worker errors may be present. Soni Padgett. Hospitalist. [...] physical therapy pending precertification to SNF. Ordered: [facility] Hospital Care/Day Moderate 35 Minutes 80130 2. Fall (W19.XXXA: Unspecified fall, initial encounter) Mechanical fall. Supportive care. Ordered: [facility] Hospital Care/Day Moderate 35 Minutes 49216 3. Acute blood loss anemia (D62: Acute posthemorrhagic anemia) Acute blood loss anemia in the perioperative period Status post 1 unit of packed red blood cell transfusion. Hemoglobin stable at 8.6. Patient received IV iron infusions. Continue on oral iron. Ordered: [facility] Hospital Care/Day Moderate 35 Minutes 72108 4. Hypertension (I10: Essential (primary) hypertension) Blood pressure fairly controlled. Continue on Coreg. We will resume lisinopril at discharge with hold parameters. Ordered: [facility] Hospital Care/Day Moderate 35 Minutes 89675 5. Hyperlipidemia (E78.5: Hyperlipidemia, unspecified) Stable. On [...] discharge as per orthopedic surgeon. Disposition: To intermediate facility when arranged pending precertification. I discussed the diagnosis and plan of care with the patient at the bedside. Moderate level of MDM based on addressing above issues. This documentation was transcribed using voice recognition software. Several attempts were made to ensure accuracy. However inadvertent computerized athletic turf worker errors may be present. Soni Padgett. Hospitalist. [...] 120, # 90 tab(s), Refills(s) 0, Pharmacy: [facility], 162, cm, 01/31/22 21:16:00 EDT, Height/Length Dosing, 70.4, kg, 01/31/22 21:16:00 EDT, Weight Dosing UA With Cult Reflex Extracted from: Title:APSO Note Author:FALLON BANKS, Sarahfo Date: Called [id number] Cauc[place] female with history of hypertension, [...] physical therapy pending precertification to SNF. Ordered: [facility] Hospital Care/Day Moderate 35 Minutes 39504 2. Fall (W19.XXXA: Unspecified fall, initial encounter) Mechanical fall. Supportive care. Ordered: [facility] Hospital Care/Day Moderate 35 Minutes 38502 3. Acute blood loss anemia (D62: Acute posthemorrhagic anemia) Acute blood loss anemia in the perioperative period Status post 1 unit of packed red blood cell transfusion. Patient received IV iron infusions. Continue on oral iron. Ordered: [facility] Care/Day Moderate 35 Minutes 64731 4. Hypertension (I10: Essential (primary) hypertension) Blood pressure fairly controlled. Continue on Coreg. Lisinopril on hold. Ordered: [facility] Hospital Care/Day Moderate 35 Minutes 36351 5. Hyperlipidemia (E78.5: Hyperlipidemia, unspecified) Stable. On Lipitor. Ordered: [facility] Hospital Care/Day Moderate 35 Minutes 26581 6. Diabetes (E11.9: Type 2 diabetes mellitus [...] for prophylactic measures, unspecified) Lovenox. Disposition: To intermediate facility when arranged. I discussed the diagnosis and plan of care with the patient at the bedside. Moderate level of MDM based on addressing above issues. This documentation was transcribed using voice recognition software. Several attempts were made to ensure accuracy. However inadvertent computerized athletic turf worker errors may be present. Soni Padgett. Hospitalist. [...] Author:Cruzito em MD, Ahmad F Date:11/25/22 Plan [place] [employer] (ASA) physical status classification: [...] midnight stay Extracted from: Title:ED Note Author:Hari Martinez DO Date :11/24/22 Closed hip fracture (S72.009 [...] Scheduled Provider:José MENESES MD Location:Extended Care Appointment Type:[facility] Future Scheduled Tests Radiology* NM Gastric Emptying Study 04/10/22 [facility]09-01-2023 NoteFisher [facility] CenterComment on above:Result Comment: Electronically Signed By: FALLON BANKS, Soni\.br\Date and Time Signed: 11/29/22 11:02 [id number] Hospital Discharge instructions Patient Education 11/28/2022 13:25:57 [...] your health care provider. General instructions Take dvab-nvd-qdnavll and prescription medicines only as told by [...] provider. Document Revised: 11/17/2020 Document Reviewed: 11/17/2020 [employer] Patient Education 2021 [employer]Apps. Follow Up Care 11/24/2022 00:36:57 With:Marcelo Call Address: [address] [place] [address]- Business (1) When: only if needed With:Joaqium Noe Address: [address] [place] [address]- Business (1) When:2 to 4 weeks Comments:Call for followup appointment [facility]08-27-2023 NoteReg[facility] Hospital CompanyComment on above:Result Comment: Electronically Signed By: Reymundo JORDAN DO\Date and Time Signed: 11/24/22 05:35 [id number] Evaluation + Plan note Extracted from: Title:ED [...] Tests Radiology* NM Gastric Emptying Study 04/10/22 [facility]06-07-2023 Hospital Discharge instructions Patient Education 09/04/2022 [...] Follow these instructions at home: Medicines Take bdsl-sks-knlcmda and prescription medicines only as told by your health care provider. Ask your health care provider if the medicine prescribed to you: ?Requires you to avoid driving or using heavy machinery. ?Can cause constipation. You may need to take these actions to prevent or treat constipation: ?Drink enough fluid to keep your urine pale yellow. ?Take jyje-hyu-fmvetjp or prescription medicines. ?Eat foods that are [...] provider. Document Revised: 11/24/2019 Document Reviewed: 11/24/2019 [employer] Patient Education 2022 [employer]s. 09/04/2022 21:51:36 Head Injury, Adult Head Injury, [...] Ask your health care provider for a osrg-cg-ondq plan for gradually returning to activities. Ask [...] your friends, family, a trusted colleague, and decontamination worker about your injury, symptoms, and restrictions. Have them watch for any new or worsening problems. General instructions Take gfrj-win-mifztgb and prescription medicines only as told by [...] provider. Document Revised: 01/28/2020 Document Reviewed: 01/28/2020 [employer] Patient Education 2022 [employer]. Follow Up Care 09/04/2022 20:22:40 With:Marcelo Link Address: [address], [facility] [address] [place] [address] [facility] (1) When:Within 3 Day(s) [facility]06-07-2023 Hospital Discharge instructions Patient Education 09/04/2022 19:32:42 RICE Therapy for Routine Care of Injuries, Qsrz-nv-Zfwh RICE Therapy for Routine Care of Injuries [...] provider. Document Revised: 01/04/2021 Document Reviewed: 01/04/2021 [employer] Patient Education 2022 [employer]Apps. 09/04/2022 19:32:42 Contusion, Pmou-vf-Avus Contusion A contusion is a deep bruise. [...] sitting or lying down. General instructions Take qaqm-ksk-rxjgjsm and prescription medicines only as told by [...] is also called RICE. Youmay be given nzxi-bsf-paxwtgx medicines for pain. Contact a doctor if [...] provider. Document Revised: 01/10/2022 Document Reviewed: 01/10/2022 [employer] Patient Education 2022 [employer]Apps. Follow Up Care 09/04/2022 15:05:18 With:Marcelo Link Address: [address], [address] [place] [address]- [facility] (1) When:09/07/2022 18:53:36 Comments:Follow-up with your primary care provider in 3 to 5 days. If symptoms worsen, do not improve, or new symptoms arise please report back to emergency department for further evaluation. [facility]06-07-2023 Evaluation + Plan noteExtracted from: Title:ED Note Author:Hari Martinez DO Date :09/04/22 Closed head injury Cervical strain Future Scheduled Tests Radiology* NM Gastric Emptying Study 04/10/22 [facility]05-12-2023 Hospital Discharge instructions Patient Education 08/09/2022 [...] Ask your health care provider for a udxa-zy-nttn plan for gradually returning to activities. Ask [...] your friends, family, a trusted colleague, and decontamination worker about your injury, symptoms, and restrictions. Have them watch for any new or worsening problems. General instructions Take jehk-isa-vbzrlbf and prescription medicines only as told by [...] provider. Document Revised: 01/28/2020 Document Reviewed: 01/28/2020 [employer] Patient Education 2022 [employer] Inc. 08/09/2022 14:12:59 Fall Prevention in Hospitals, [...] balance. Talk with a physical therapist or wellness trainer if recommended by your health care [...] provider. Document Revised: 10/18/2020 Document Reviewed: 10/18/2020 [employer] Patient Education 2022 [employer]ractApps. Follow Up Care 08/09/2022 12:15:41 With:Marcelo Link Address: [address] [place] [address]- Business (1) When:08/12/2022 14:11:58 Comments:Call the office [...] sleep, or any new or worsening symptoms. [facility]05-12-2023 Evaluation + Plan noteExtracted from: Title:ED [...] Tests Radiology* NM Gastric Emptying Study 04/10/22 [facility]04-21-2023 Hospital Discharge instructions Patient Education 07/18/2022 [...] to strengthen the arm. General instructions Take rttj-mnp-esdowyz and prescription medicines only as told by [...] provider. Document Revised: 11/30/2021 Document Reviewed: 11/30/2021 [employer] Patient Education 2022 [employer]Apps. 07/18/2022 23:33:46 Hip Pain Hip Pain The [...] activities that cause pain. General instructions Take vujb-uti-uvwgaba and prescription medicines only as told by [...] provider. Document Revised: 08/02/2019 Document Reviewed: 08/02/2019 [employer] Patient Education 2022 [employer]ractApps. 07/18/2022 23:33:46 Fall Prevention in the Home, Adult, Xceg-yk-Fgey Fall Prevention in the Home, Adult Falls [...] Keep items that you use often in kppl-kb-ryhiy places. Lower the shelves around your home [...] of the way. Do not use floor malay or wax that makes floors slippery. What [...] Disease Control and Prevention, BEATRIZ: www.cdc.gov National [place] on Aging: www.britany.nih.gov Contact a doctor if: [...] provider. Document Revised: 12/17/2021 Document Reviewed: 10/18/2020 [employer] Patient Education 2022 [employer]ractApps. Follow Up Care 07/18/2022 22:27:53 With:Marcelo Link Address: [address] [place] [address]- [facility] (1) When:07/21/2022 Comments:Contact ibuprofen, Tylenol at home as needed for pain every 6 hours. Please follow-up with your primary care doctor in the next 2 to 3 days. Please return to the ED for any new or worsening symptoms or [facility]04-20-2023 History of Present illness Narrative* Naseem Hardy MD - 07/18/2022 4:32 PM EDT Images from the original note were not included. EMERGENCY TRIAGE, TREAT AND TRANSPORT (ET3) DOCUMENTATION OF TELEHEALTH VISIT Date / Time: 07/18/20225 Name: Fartun Myers NOTE: CORRECT SPELLING MAY BE ZACH : 1955 SSN: (Not on file) EMS Agency: [facility] [x] Verbal consent obtained [] Implied [...] by: Naseem Hardy MD documented in this [id number] Evaluation + Plan note Extracted from: Title:ED [...] Tests Radiology* NM Gastric Emptying Study 04/10/22 [facility]02-10-2023 Note [id number]:127[facility] 04-10-2022 Evaluation + Plan note Future Scheduled Tests Radiology* HI Gastric Emptying Study 04/10/22 [facility]01-04-2023 Hospital Discharge instructions Patient Education 04/03/2022 [...] sitting or lying down. General instructions Take hcej-zoc-qaecihh and prescription medicines only as told by [...] compression, and elevation. You may be given nggq-kel-dwaqmhh medicines for pain. Contact a health care [...] 12/25/2005 Document Revised: 11/05/2018 Document Reviewed: 11/05/2018 [employer] Patient Education 2020 [employer] Inc. Follow Up Care 04/03/2022 16:34:06 With:Marcelo Link Address: [address] [place] [address]- Business (1) When:04/06/2022 18:32:44 Comments:Call the office [...] you develop any new or worsening symptoms. [facility]01-04-2023 Evaluation + Plan noteExtracted from: Title:ED [...] Date:04/10/2022 10:15:00 AM Scheduled Provider:London DIAZ MD Location:[facility] Dig[facility]ive Health Appointment Type:[facility] Follow Up [facility]01-03-2023 Evaluation + Plan noteExtracted from: Title:ED Note Author:Brady Marinelli DO Date:04/02 Contusion of hip (S70.00XA: Contusion of unspecified hip, initial encounter) Elbow contusion (S50.00XA: Contusion of unspecified elbow, initial encounter) Orders: XR Elbow 3+ Views Left XR Hip 2-3 Views Left + Pelvis Future Appointments Appointment Date:04/10/2022 10:15:00 AM Scheduled Provider:London DIAZ MD Location:[facility] Digestive Health Appointment Type:BAD Follow Up [facility]01-03-2023 Hospital Discharge instructions Patient Education 04/02/2022 [...] your health care provider. General instructions Take cthp-qby-woytlsi and prescription medicines only as told by your health care provider. Ask your health care provider if the medicine prescribed to you: ?Requires you to avoid driving or using heavy machinery. ?Can cause constipation. You may need to take actions to prevent or treat constipation, such as: ?Drink enough fluid to keep your urine pale yellow. ?Take xbsf-rbk-xhgwrjx or prescription medicines. ?Eat foods that are [...] 11/05/2018 Document Revised: 07/08/2019 Document Reviewed: 11/05/2018 [employer] Patient Education 2020 [employer] Inc. 04/02/2022 11:03:46 Elbow Contusion Elbow Contusion [...] sling or splint to support your injury. Avxi-xnf-fnqqpin anti-inflammatory medicines, such as ibuprofen, for pain control. Yfipg-fw-iutebc exercises. Follow these instructions at home: RICE [...] bath or a shower. General instructions Take fivp-xhq-zigyqzs and prescription medicines only as told by your health care provider. Return to your normal activities as told by your health care provider. Ask your health care provider what activities are safe for you. Do gwskz-mi-lseaus exercises only as told by your health [...] Document Reviewed: 09/17/2018 Elsevier Patient Education 2019 ExTractApps. Follow Up Care 04/02/2022 09:43:43 With:Marcelo Link Address: [address] [place] [address]- Business (1) When:Within 3 Day(s) [facility]12-14-2022 Hospital Discharge instructions Patient Education 03/13/2022 [...] home: Managing pain, stiffness, and swelling Take nvfn-wvx-uqadnxy and prescription medicines only as told by [...] as fried and sweet foods. ?Take an rsko-bfj-bpenmrx or prescription medicine for constipation. Contact a [...] 12/10/2001 Document Revised: 05/13/2019 Document Reviewed: 04/06/2018 [employer] Patient Education 2020 ExTractApps. 03/13/2022 19:21:56 Abdominal Pain, Adult, Bcdp-ht-Owan Abdominal Pain, Adult Many things can cause belly (abdominal) pain. Most times, belly pain is not dangerous. Many cases of belly pain can be watched and treated at home. Sometimes, though, belly pain is serious. Your doctor will try to find the cause of your belly pain. Follow these instructions at home: Medicines Take dfjd-ugu-hehstbt and prescription medicines only as told by [...] your belly pain for any changes. Take gbgd-slk-hkjdvwh and prescription medicines only as told by [...] 09/02/2008 Document Revised: 07/26/2019 Document Reviewed: 07/26/2019 [employer] Patient Education 2020 ExTractApps. Follow Up Care 03/13/2022 16:37:17 With:Marcelo Link Address: [address], [address] [place] [address]- Business (1) When:03/16/2022 19:05:35 Comments:Follow-up with your primary care provider in 3 to 5 days. If symptoms worsen, do not improve, or new symptoms arise please report back to emergency department for further evaluation. [facility]11-12-2022 Hospital Discharge instructions Patient Education 02/08/2022 [...] Follow these instructions at home: Medicines Take yxne-flf-ikubrge and prescription medicines only as told by [...] Watch your condition for any changes. Take wcdc-tni-ceqtoeo and prescription medicines only as told by [...] 12/25/2005 Document Revised: 07/26/2019 Document Reviewed: 07/26/2019 [employer] Patient Education 2020 ExTractApps. Follow Up Care 02/08/2022 20:29:45 With:Marcelo Call Address: [address], [address] [facility] [place] [address] Business (1) When:02/11/2022 Comments:Attend scheduled follow-up with Dr. Call next week to discuss management of ongoing chronic pain and other symptoms [facility]11-11-2022 Evaluation + Plan noteExtracted from: Title:ED Note Author:Delbert Estrada PA-C Micheal e:02/08/22 Abdominal pain (R10.9: Unspe cified abdominal pain) Nausea (R11.0: Nausea) Orders: Automated Diff Basic Metabolic Panel Beta-hydroxybutyrate CBC w/ Auto Diff eGFR Hepatic Function Panel UA With Cult Reflex XR Abdomen 1 View Future Appointments Appointment Date:04/10/2022 10:15:00 AM Scheduled Provider:London DIAZ MD Location:[facility] Digestive [facility] Appointment Type:[facility] Follow Up [facility]11-06-2022 Evaluation + Plan noteExtracted from: Title:ED Note Author:Vadim Gusman MD Date: 1. Medication side effect (T 88.7XXA: Unspecified adverse effect of drug or medicament, initial encounter) Orders: Automated Diff Basic Metabolic Panel CBC w/ Auto Diff eGFR Extra Blue Tube UA With Cult Reflex Future Appointments Appointment Date:04/10/2022 10:15:00 AM Scheduled Provider:London DIAZ MD Location:[facility] Digestive Health Appointment Type:[facility] Follow Up [facility]11-06-2022 Hospital Discharge instructions Patient Education 02/03/2022 05:00:01 Accidental Drug Poisoning, Adult Accidental Drug Poisoning, Adult Accidental drug poisoning happens when a person accidentally takes too much of a substance, such asa prescription medicine, an qcjl-lql-znweawr medicine, a vitamin, a supplement, or an [...] medicines. Cocaine. Heroin. Multivitamins that contain iron. Ceme-kfk-axhapgp cold and cough medicines. What increases the [...] Follow these instructions at home: Medicines Take zrdi-voj-qlmgmmo and prescription medicines only as told by your health care provider. Before taking a new medicine, ask your health care provider whether the medicine: ?May cause side effects. ?Might react with other medicines. Keep a list of all the medicines that you take, including iewo-ywj-fxyonwu medicines, vitamins, supplements, and herbs. Bring this [...] your cell phone. The hotline of the [place] [employer] Poison Control [employer] is . [...] a substance, such asa prescription medicine, an kzyr-aot-aivxiik medicine, a vitamin, a supplement, or an [...] 05/31/2005 Document Revised: 02/27/2018 Document Reviewed: 02/16/2018 [employer] Patient Education [employer] Follow Up Care 02/03/2022 01:08:11 With:Marcelo Link Address: [address], [address] [place] [address]- Business (1) When:02/06/2022 only if needed [facility]11-05-2022 Evaluation + Plan noteExtracted from: Title:Discharge Note Author:DERREK BANKS, Denzel Micheal e:02/02/22 Good Discharge To, Anticipated II - Home with home health Discharged to - Other: states she has a nurse who will be coming in to help with medications and another person to help with sliding joint maker Home Discharge Diet(s): Calorie Controlled- 1800 Calorie [...] Tab, 112 mcg= 1 tab(s), Oral, Daily Columbus 325 mg-5 mg oral tablet, 1 tab(s), [...] Marcelo Link 02/08/2022 10:15 AM EST [address], [address] [place] [address]- Business (1) Additional Instructions: Acute Kidney Injury, [...] made to ensure accuracy, however, inadvertently computerized athletic turf worker mistakes may be present. Dr. Kilo Harris Hospitalist at [facility] Extracted from: Title:ED Note Author:Ty Manrique DO [...] Date:04/10/2022 10:15:00 AM Scheduled Provider:London DIAZ MD Location:[facility] Digestive Health Appointment Type:[facility] Follow Up Diagnostic Tests Pending * Blood Gas Randall 01/31/22 [facility]11-05-2022 Hospital Discharge instructions Patient Education 02/02/2022 [...] Follow these instructions at home: Medicines Take fisg-klu-jkjafly and prescription medicines only as told by [...] is important. Where to find more information [place] [employer]: www.aakp.org National Kidney Foundation: www.kidney.org [place] [employer]: www.akfinc.org [facility]: [...] 09/30/2011 Document Revised: 02/27/2018 Document Reviewed: 03/07/2017 [employer] Patient Education 2020 [employer]ractApps. 02/02/2022 11:03:37 Acute Kidney Injury, Adult Acute [...] Follow these instructions at home: Medicines Take srei-axj-pmzjqjq and prescription medicines only as told by [...] is important. Where to find more information [place] [employer] Patients: www.aakp.org National Kidney Foundation: www.kidney.org [place] [employer]: www.akfinc.org [facility]: [...] 09/30/2011 Document Revised: 02/27/2018 Document Reviewed: 03/07/2017 [employer] Patient Education [employer]. Follow Up Care 01/31/2022 21:09:18 With:Marcelo Link Address: [address], [address] [place] [address] Business (1) When:02/08/2022 10:15:00 [facility]11-02-2022 Evaluation + Plan noteExtracted from: Title:Discharge Note Author:DERREK BANKS, Denzel Burotn e:01/30/22 good Discharge To, Anticipated II - [...] Tab, 40 mg= 1 tab(s), Oral, Daily [place] 325 mg-5 mg oral tablet, 1 tab(s), Oral, BID, PRN Paxil 10 mg Tab, 10 mg= 1 tab(s), Oral, As Directed rosuvastatin 20 mg Tab, 20 mg= 1 tab(s), Oral, Daily traZODONE 100 mg Tab, 200 mg= 2 tab(s), Oral, Once a day (at bedtime) Trulicity Pen 4.5 mg/0.5 mL subcutaneous solution, 4.5 mg, SubCutaneous, qWeek With When Contact Information NOMI WETZEL [address] [place] [address]- Business (1) Additional Instructions: Marcelo Link In 0 days [address], [address] [place] [address]- Business (1) Additional Instructions: Form - Daily [...] Encounter for prophylactic measures, unspecified) Lovenox daily [facility]11-02-2022 Hospital Discharge instructions Patient Education 01/30/2022 [...] 02/18/2005 Document Revised: 12/29/2018 Document Reviewed: 12/13/2016 [employer] Patient Education 2020 [employer]s. 01/30/2022 09:29:23 Diabetic Ketoacidosis Diabetic Ketoacidosis Diabetic [...] sugar-free liquids, such as water. Medicines Take oeaa-mtf-cxxallb and prescription medicines only as told by [...] 03/14/2001 Document Revised: 05/02/2017 Document Reviewed: 04/21/2017 [employer] Patient Education 2020 [employer]s. 01/30/2022 09:29:22 Diabetes Mellitus and Sick Day [...] lot of sugar. Take medicines as directed Rixg-sgqd-urp-counter and prescription medicines only as told by [...] 03/19/2004 Document Revised: 12/13/2016 Document Reviewed: 12/13/2016 [employer] Patient Education 2020 [employer]. 01/30/2022 09:29:20 Diabetes Mellitus and Nutrition, Adult [...] that you work with a diet and social security specialist (dietitian) tomake a meal plan that is [...] care provider. Work with a counselor or senior health educator to identify strategies to manage stress and any emotional and social challenges. Questions to ask a health care provider Do I need to meet with a senior health educator? Do I need to meet with a dietitian? What number can I call if I have questions? When are the best times to check my blood glucose? Where to find more information: [place] [employer]: diabetes.org Academy of Nutrition and Dietetics: www.eatright.org National [place] of Diabetes and Digestive and Kidney Diseases (NIH): www.niddk.nih.gov Summary A healthy meal plan will help you control your blood glucose and maintain a healthy lifestyle. Working with a diet and social security specialist (dietitian) can help you make a meal [...] 12/12/2005 Document Revised: 02/27/2018 Document Reviewed: 04/21/2017 [employer] Patient Education 2020 [employer]. 01/30/2022 09:29:19 Diabetes Mellitus and Foot Care Diabetes Mellitus and Foot Care Foot care is an important part of your health, especially when you have diabetes. Diabetes may cause you to have problems because of poor blood flow (circulation) to your feet and legs, which can cause your skin to: Become thinner and milk drier. Break more easily. Heal more slowly. Peel [...] 03/14/2001 Document Revised: 04/29/2018 Document Reviewed: 04/18/2017 [employer] Patient Education 2020 [employer]. 01/30/2022 09:29:18 Diabetes Mellitus and Exercise Diabetes [...] plan? Your health care provider or certified pharmacist assistant can help you make a plan for [...] stress. Your health care provider or certified pharmacist assistant can help you make a plan for [...] 06/06/2004 Document Revised: 2017 Document Reviewed: 08/26/2016 [employer] Patient Education 2020 [employer]. Follow Up Care 01/28/2022 11:57:18 With:NOMI WETZEL Address: [address], [address] [place] [address]- Business (1) When:02/05/2022 09:40:00 Comments:For DKA & Renal Failure With:Marcelo Link Address: [address] [facility] [place] [address]- Business (1) When:02/08/2022 10:15:00 [facility]10[facility] Hospital Discharge instructions Patient Education 01/27/2022 [...] oral rehydration solution (ORS). This is an qjna-uga-yghacyv medicine that helps return your body to [...] drinks, sports drinks, and soda. Eat bland, wlum-yz-opklov foods in small amounts as you are able. These foods include bananas, applesauce, rice, lean meats, toast, and crackers. Avoid alcohol. Avoid spicy or fatty foods. Medicines Take vrqc-unn-zjkdtth and prescription medicines only as told by your health care provider. If you were prescribed an antibiotic medicine, take it as told by your health care provider. Do notstop using the antibiotic even if you start to feel better. General instructions Wash your hands often using soap and water. If soap and water are not available, use a hand molder. Others in the household should wash their [...] soap and water are not available, usehand molder. Contact a health care provider if your diarrhea gets worse or you have new symptoms. Get help right away if you have signs of dehydration. This information is not intended to replace advice given to you by your health care provider. Make sure you discuss any questions you have with your health care provider. Document Released: 03/07/2003 Document Revised: 08/03/2019 Document Reviewed: 08/21/2018 [employer] Patient Education 2020 [employer]. 01/27/2022 18:13:28 Nausea and Vomiting, Adult Nausea [...] water added (diluted fruit juice). Eat bland, kvip-bv-xkezdr foods in small amounts as you are able. These foods include bananas, applesauce, rice, lean meats, toast, and crackers. Avoid fluids that contain a lot of sugar or caffeine, such as energy drinks, sports drinks, and soda. Avoid alcohol. Avoid spicy or fatty foods. General instructions Take akgv-kpp-mgeplup and prescription medicines only as told by your health care provider. Drink enough fluid to keep your urine pale yellow. Wash your hands often using soap and water. If soap and water are not available, use hand molder. Make sure that all people in your [...] eating and drinking to prevent dehydration. Take mbcm-sas-kxbinub and prescription medicines only as told by [...] 03/17/2006 Document Revised: 07/09/2019 Document Reviewed: 08/25/2018 [employer] Patient Education 2020 [employer]. 01/27/2022 18:13:28 Abdominal Pain, Adult Abdominal Pain, [...] Follow these instructions at home: Medicines Take nhvs-oby-lywrycg and prescription medicines only as told by [...] Watch your condition for any changes. Take xecw-tlz-wnhizim and prescription medicines only as told by [...] 12/25/2005 Document Revised: 07/26/2019 Document Reviewed: 07/26/2019 [employer] Patient Education 2019 [employer]. Follow Up Care 01/27/2022 14:43:33 With:London DIAZ Address: [address] [place] [id number] Business (1) When:01/30/2022 17:32:45 Comments:Return to the emergency room if your pain gets worse, you develop fever, vomiting recurs or any newsymptoms. With:Marcelo Call Address: [address], [address] [place] [address]- Business (1) When:Within 3 Day(s) [facility]10-30-2022 Evaluation + Plan noteExtracted from: Title:ED Note Author:Ismael Harrington, Earnest Biggs te:01/27/22 1. Abdominal pain [...] PT & PTT UA With Cult Reflex [facility]08-20-2022 Hospital Discharge instructions Patient Education 11/17/2021 20:23:44 Hypoglycemia, Nogg-vk-Pyvy Hypoglycemia Hypoglycemia is when the sugar (glucose) [...] these instructions at home: General instructions Take phll-mvw-vlligad and prescription medicines only as told by [...] 06/11/2010 Document Revised: 07/08/2019 Document Reviewed: 04/19/2016 [employer] Patient Education 2020 [employer] Follow Up Care 11/17/2021 17:29:57 With:Marcelo Link Address: [address] [place] [address]- Business (1) When:11/20/2021 20:12:53 [facility] No data available for this section [facility] Future Appointments Appointment Date:11/13/2021 02:45:00 PM Scheduled Provider: Location:.[place] App[facility] ([facility] Future Appointments Appointment Date:04/10/2022 10:15:00 AM Scheduled Provider:London DIAZ MD Location:[facility] Appointment Type:BADH [facility] Future Appointments Appointment Date:06/14/2022 12:30:00 PM Scheduled Provider: Location:[facility] Appointment Type:Surgery FT Future Scheduled Tests Radiology* NM Gastric Emptying Study 04/10/22 [facility] Evaluation note* Diagnosis Anxiety- Primary Anxiety state, unspecified documented in [facility] Other History general Narrative - Reported* Type Description Date Medical History DEPRESSION Medical History HTN Medical History ARTHRITIS Medical History DIABETES Medical History NEUROPATHY Surgical History BILATERAL KNEE REPLACEMENT Surgical History LEFT HIP Surgical History LEFT THUMB Surgical History HYSTERECTOMY Surgical History GALLBLADDER Surgical History TUMOR LEFT SHOULDER Hospitalization History SEE ABOVE [place] Other Hospital Discharge instructions No data available for this section [facility] No data available for this section [facility] Summary Purpose Family History No Family History Records FoundNo Family History Records Found No data available for this section No Family History Records Found No data available for this section Advance Directives No Advanced Directives Records FoundNo Advanced Directives Records FoundNo Advanced Directives Records Found Additional Source Comments Care Team (unrecognized sect ion and content) Personnel Name: Marcelo Call DO Address: [address] [place] [address] Name: Efrem Matos Name: Matthieu Ware Name: Hayde Morrison Name: Kady Stephenson Name: Angie Flores LPN Name: Ellyn Melendez I Name: Ellyn Gómez Personnel Name: Marcelo Call DO Address: Address: [address] [place] [address] Name: Efrem Matos Name: Matthieu Ware H Name: Hayde Morrison A Name: Seema, Kady L Name: Zidarin HOTEL OFFICE MANAGER, Angie Name: Richuiti, Ellyn I Name: Holleran, Ellyn Personnel Name: [facility] Address: Address: [address] [place] [address] Name: Efrem Matos L Name: Matthieu Ware H Name: Hayde Morrison A Name: Seema, Kady L Name: Zidarin HOTEL OFFICE MANAGER, Angie Name: Richuiti, Ellyn I Name: Holleran, Ellyn Personnel Name: [facility] Address: Address: [address] [place] [address] Name: Efrem Matos Name: Matthieu Ware H Name: Hayde Morrison A Name: Seema, Kady L Name: Zidarin HOTEL OFFICE MANAGER, Angie Name: Richuiti, Ellyn I Name: Holleran, Ellyn Personnel Name: [facility] Address: Address: [address] [place] [address] Name: Pradeep QUIGLEY, Sienna J Name: Efrem Matos Name: Matthieu Ware H Name: aHyde Morrison A Name: Seema, Kady L Name: Zidarin HOTEL OFFICE MANAGER, Angie Name: Richuiti, Ellyn I Name: Holleran, Ellyn Personnel Name: [facility] Address: Address: [address] [place] [address] Name: Pradeep HOTEL OFFICE MANAGER, Sienna J Name: Efrem Matos L Name: Matthieu Ware H Name: Hayde Morrison A Name: Seema Kady L Name: Zidarin HOTEL OFFICE MANAGER, Angie Name: Richuiti, Ellyn I Name: Holleran, Ellyn Personnel Name: [facility] Address: Address: [address] [place] [address] Name: Pradeep HOTEL OFFICE MANAGER, Isenna J Name: Efrem Matos Name: Matthieu Ware H Name: Hayde Morrison A Name: Seema, Kady L Name: Zidarin HOTEL OFFICE MANAGER, Angie Name: Richuiti, Ellyn I Name: Holleran, Ellyn Personnel Name: [facility] Address: Address: [address] [place] [address]- Name: Pradeep HOTEL OFFICE MANAGER, Sienna J Name: Efrem Matos L Name: Matthieu Ware H Name: Hayde Morrison A Name: Seema, Kady L Name: Zidarin HOTEL OFFICE MANAGER, Angie Name: Richuiti, Ellyn I Name: Holleran, Ellyn Personnel Name: [facility] Address: Address: [address] [place] [address] Name: Pradeep HOTEL OFFICE MANAGER, Sienna J Name: Efrem Matos L Name: Matthieu Ware Name: Hayde Morrison A Name: Dominga Stephensonah L Name: Zidarin HOTEL OFFICE MANAGER, Angie Name: Richuiti, Ellyn I Name: Holleran, Ellyn Personnel Name: [facility] Address: Address: [address] [place] [address] Name: Pradeep HOTEL OFFICE MANAGER, Sienna J Name: Efrem Matos L Name: Matthieu Ware H Name: Hayde Morrison A Name: Semea, Kady L Name: Zidarin HOTEL OFFICE MANAGER, Angie Name: Richuiti, Ellyn I Name: Holleran, Ellyn Personnel Name: [facility] Address: Address: [address] [place] [address] Name: Pradeep HOTEL OFFICE MANAGER, Sienna J Name: Jeff Matosby L Name: Matthieu Ware H Name: Hayde Morrison A Name: Seema Kady L Name: Zidarin HOTEL OFFICE MANAGER, Angie Name: Richuiti, Ellyn I Name: Holleran, Ellyn Personnel Name: [facility] Address: Address: [address] [place] [address] Name: Pradeep HOTEL OFFICE MANAGER, Sienna J Name: Beaudvesna, Efrem L Name: Michael Warean H Name: Hayde Morrison A Name: Seema, Kady L Name: Zidarin HOTEL OFFICE MANAGER, Angie Name: Richuiti, Ellyn I Name: Holleran, Ellyn Personnel Name: [facility] Address: Address: [address] [place] [address] Name: Pradeep HOTEL OFFICE MANAGER, Sienna J Name: BeJeff marinby L Name: Matthieu Ware H Name: Hayde Morrison A Name: Seema, Kady L Name: Zidarin HOTEL OFFICE MANAGER, Angie Name: Richuiti, Ellyn I Name: Holleran, Ellyn Personnel Name: [facility] Address: Address: [address] [place] [address] Name: Pradeep HOTEL OFFICE MANAGER, Sienna J Name: Efrem Matos L Name: Matthieu Ware H Name: Hayde Morrison A Name: Dominga Stephensonah L Name: Zidarin HOTEL OFFICE MANAGER, Angie Name: Richuiti, Ellyn I Name: Holleran, Ellyn Personnel Name: [facility] Address: Address: [address] [place] [address] Name: Pradeep HOTEL OFFICE MANAGER, Sienna J Name: Beaudvesna Efrem L Name: Michael Warean H Name: Hayde Morrison A Name: Seema Kady L Name: Zidarin HOTEL OFFICE MANAGER, Angie Name: Richuiti, Ellyn I Name: Holleran, Ellyn Personnel Name: [facility] Address: Address: [address] [place] [address] Name: Pradeep HOTEL OFFICE MANAGER, Sienna J Name: Jeff Matosby L Name: Matthieu Ware H Name: Hayde Morrison A Name: Seema Kady L Name: Zidarin HOTEL OFFICE MANAGER, Angie Name: Richuiti, Ellyn I Name: Holleran, Ellyn Personnel Name: [facility] Address: Address: [address] [place] [address]- Name: Pradeep HOTEL OFFICE MANAGER, Sienna J Name: BeJeff marinby L Name: Matthieu Ware H Name: Hayde Morrison A Name: Seema, Kady L Name: Zidarin HOTEL OFFICE MANAGER, Angie Name: Richuiti, Ellyn I Name: Holleran, Ellyn Personnel Name: [facility] Address: Address: [address] [place] [address] Name: Pradeep HOTEL OFFICE MANAGER, Sienna J Name: BeJeff marinby L Name: Matthieu Ware H Name: Hayde Morrison A Name: Seema Kady L Name: Zidarin HOTEL OFFICE MANAGER, Angie Name: Richuiti, Ellyn I Name: Holleran, Ellyn Personnel Name: [facility] Address: Address: [address] [place] [address] Name: Pradeep HOTEL OFFICE MANAGER, Sienna J Name: Efrem Matos L Name: Matthieu Ware H Name: Hayde Morrison A Name: Seema Kady L Name: Zidarin HOTEL OFFICE MANAGER, Angie Name: Richuiti, Ellyn I Name: Holleran, Ellyn Personnel Name: [facility] Address: Address: [address] [place] [address] Name: Pradeep HOTEL OFFICE MANAGER, Sienna J Name: BeJeff marinby L Name: Matthieu Ware H Name: Hayde Morrison A Name: Seema Kady L Name: Zidarin HOTEL OFFICE MANAGER, Angie Name: Richuiti, Ellyn I Name: Holleran, Ellyn Personnel Name: [facility] Address: Address: [address] [place] [address] Name: Pradeep HOTEL OFFICE MANAGER, Sienna J Name: BeJeff marinby L Name: Michael Warean H Name: Arnie Morrisonle A Name: Seema, Kady L Name: Zidarin HOTEL OFFICE MANAGER, Angie Name: Richuiti, Ellyn I Name: Holleran, Ellyn Personnel Name: [facility] Address: Address: [address] [place] [address] Name: Pradeep HOTEL OFFICE MANAGER, Sienna J Name: Efrem Matos L Name: Matthieu Ware H Name: Hayde Morrison A Name: Stephenson, Kady L Name: Zidarin HOTEL OFFICE MANAGER, Angie Name: Davinuiti, Ellyn I Name: Dalia Ellyn [facility] Address: Address: [address] [place] [address] Name: Pradeep HOTEL OFFICE MANAGER, Sienna J Name: Efrem Matos L Name: Matthieu Ware H Name: Hayde Morrison A Name: Seema, Kady L Name: Ceciliodaimelda HOTEL OFFICE MANAGER, Angie Name: Al, Ellyn I Name: Dalia Ellyn [facility] Address: Address: [address] [place] [address] Name: VincentDevang mccarthyfarhad Han Name: Pradeep HOTEL OFFICE MANAGER, Sienna J Name: BeEfrem marin L Name: Matthieu Ware Name: Hayde Morrison Name: Kady Stephenson L Name: Zidarin HOTEL OFFICE MANAGER, Angie Name: Al, Ellyn I Name: Dalia Ellyn INFORMATION SOURCE (unrecogn ized section and content) DATE CREATED AUTHOR 02/06/2022 [facility] [place] DATE CREATED AUTHOR AUTHOR'S ORGANIZ ATION 08/11/2022 [facility] DATE CREATED AUTHOR AUTHOR'S ORGANIZ ATION 03/21/2023 [facility] Reason for Visit (unrecogniz ed section and [...] BE BASED ON THE PRIMARY CLINICAL RECORDS. [facility] CenterFunding [employer]. provides no warranty or guarantee of the accuracy or completeness of information in this document.
[2023-04-28 08:46] LABS: Anion Gap 11.2; BUN Creatinine Ratio 21.8; Calcium 8.7 mg/dL (8.5-10.1); Carbon Dioxide 28.1 mmol/L (21.0-32.0); Chloride 109 mmol/L (98-107); Creatine Kinase 29 U/L (26-192); Estimated GFR (African America >60 (>=60); Estimated GFR (Non-African Ame >60 (>=60); Glucose 84 mg/dL (74-106); Potassium 4.3 mmol/L (3.5-5.1); Sodium 144 mmol/L (136-145)
[2023-04-28 08:56] LABS: C Reactive Protein <0.50 mg/dL (<=0.50)
== END 2023-04-28 03:25 | disposition home or self-care (01) ==
LOC: LAB 03:24
PROVIDERS: PCP Family Medicine; Visit Provider Family Medicine
DX: Z51.81 Encounter for therapeutic drug level monitoring (principal); Z79.899 Other long term (current) drug therapy
CPT/HCPCS: 36415; 80048; 82550; 86140

== ENCOUNTER 2023-07-13 17:08 | Outpatient (REF) | payer MEDICARE, MEDICAID, SELFPAY ==
--- OUTSIDE RECORDS SUMMARY | 2023-07-14 04:42 | XMS_ITS | CCD ---
Author Organization [facility] Care Team Providers Care [employer] Flex Developer Name Role Phone Marcelo Call Primary Care Physician [phone] Efrem Matos Unavailable Unavailable Matthieu Ware Unavailable Unavailable Hayde Morrison Unavailable Unavailable Kady Stephenson Unavailable Unavailable Zidarin Angei Unavailable Unavailable Richuiti, Ellyn I Unavailable Unavailable Dalia Ellny Unavailable Unavailable Sienna Fernández Unavailable Unavailable Dr. Chuck Vernon Attending Yanni vailable Unavailable Primary Care Provider Unavailabl e PROVIDER, UNKNOWN Admitting Unavailable PROVIDER, UNKNOWN Attending Unavailable Ashish Chester Unavailable Vannessa Kaur Unavailable Unavailable Link Marcelo BANKS Primary Care Provider [phone] [facility] Primary Care Physician Unavailab Marcelo Emerson Primary Care Physician JOAQUIM RICE Attending Unavailable JOAQUIM RICE Referring Unavailable JOAQUIM RICE Referring Unavailable JOAQUIM RICE Attending Unavailable Marcelo Call Attending Unavailable Marcelo Call Attending Unavailable DO Emely Mccall Attending UnavailJosé Hassan Attending Unavailable Hari Martinez Attending Unavailable Ty Manrique Attending Unavailable Raul Arnold Attending Unavailable Earnest Guevara Attending Unavailable Raul Arnold Attending Unavailable José MENESES Attending Unavailable Hasmukh, Joaquim A Consulting Unavailable Brown, Joaquim A Consulting Unavailable Brown, Joaquim A Consulting Unavailable Brown, Joaquim A Consulting Unavailable Brown, Joaquim A Consulting Unavailable Brown, Joaquim A Consulting Unavailable Brown, Joaquim A Consulting Unavailable Brown, Joaquim A Consulting Unavailable Brown, Joaquim A Consulting Unavailable Brown, Joaquim A Consulting Unavailable Brown, Joaquim A Consulting Unavailable Brown, Joaquim A Referring Unavailable Brown, Joaquim A Attending Unavailable Brown, Joaquim A Admitting Unavailable Brown, Joaquim A Referring Unavailable Brown, Joaquim A Attending Unavailable Brown, Joaquim A Admitting Unavailable Soni PADGETT Attending Unavailable Reymundo JORDAN [...] Consulting Unavailable Brown, Joaquim A Consulting Unavailable Cordell Grossman Consulting Unavailable Brown, Joaquim A Attending Unavailable Brown, Joaquim A Admitting Unavailable Brown, Joaquim A Referring Unavailable DO Cordell Grossman Consulting Unavaila ble Cordell Grossman Consulting Unavailable Blank, Ashish S Consulting Unavailable Blank, Ashish S Consulting Unavailable Blank, Ashish S Consulting Unavailable Blank, Ashish S Consulting Unavailable Blank, Ashish S Consulting Unavailable Blank, Ashish S Consulting Unavailable Blank, Ashish S Consulting Unavailable Blank, Ashish S Consulting Unavailable Blank, Ashish S Consulting Unavailable Blank, Ashish S Consulting Unavailable Allergies Allergy Classification Reported Allergen(s) Allergy Type Date of Onset Reaction(s) Facility (20 sources) Adhesive bandage; Translations: [Adhesive Bandage] Drug allergy Eruption of skin (disorder) [facility] (20 sources) Amoxicillin; Translations: [amoxicillin] Drug Allergy 12-20-19 Anaphylaxis (disorder), Anaphylaxis [facility] Comment on above: Tolerated ceftriaxon e several times in past (20 sources) bacitracin / neomycin / polymyxin b; Translations: [bacitracin/neomy andrea/polymyxin B topical] Drug Allergy Eruption of skin (disorder) [facility] (20 sources) celecoxib; Translations: [celecoxib] Drug Allergy Eruption of skin (disorder) [facility] (20 sources) Penicillin; Translations: [penicillin] Drug Allergy Anaphylaxis (disorder) [facility] Comment on above: Tolerated ceftriaxon e several times in past (20 sources) Sulfamethoxazole; Translations: [sulfamethoxazole ] Drug Allergy unknown [facility] (20 sources) Triclosan; Translations: [triclosan topical] Drug Allergy Eruption of skin (disorder) [facility] (20 sources) goldbond cream; Translations: [goldbond cream] Drug allergy Eruption of skin (disorder) [facility] (4 sources) Aloe Extract Drug Allergy 12-20-19 Unknown [facility] (4 sources) Bacitracin / Polymyxin B Drug Allergy 12-20-19 23 Rash [facility] Other (4 sources) Benzalkonium Drug Allergy 04-20-19 14 Unknown [facility] Other (4 sources) corn starch Drug Allergy 12-20-19 Unknown [employer] Other (4 sources) dimethicone Drug Allergy 12-20-19 Unknown [facility] Other (4 sources) Kaolin Drug Allergy 12-20-19 Unknown [employer] Other (4 sources) meloxicam; Translations: [meloxicam] Drug Allergy Unknown [facility] (4 sources) pramoxine Drug Allergy 12-20-19 Unknown [employer] Other (3 sources) Zinc Oxide Drug Allergy Unknown [employer] Other (4 sources) Substance with sulfonamide structure and antibacterial mechanism of action (substance) Drug allergy 12-20-19 Unknown [employer] Other (1 source) celecoxib Drug Allergy 04-20-19 14 Rash, Unknown [facility] (1 source) meloxicam Drug Allergy 12-20-19 [facility] (1 source) Menthol Drug Allergy 12-20-19 Unknown [facility] (1 source) Triclosan Drug Allergy 12-20-19 Rash [facility] (1 source) Zinc oxide Allergy to substance 12-20-19 Unknown [facility] (1 source) Wound Dressing Adhesive Drug Allergy 12-20-19 Rash [facility] (1 source) Acetaminophen / HYDROcodone; Translations: [Vicodin] Drug Allergy [facility] (1 source) Latex; Translations: [Latex] Propensity to adverse reactions (disorder) [facility] (1 source) Penicillin; Translations: [penicillin] Drug Allergy [facility] Rep[facility] Medications Current Medications Medication Drug Class(es) Dates Sig (Normalized) Sig (Original) acetaminophen 325 mg oral tablet (7 sources) Start: 04-11-2023 take 325 mg by mouth three times daily acetaminophen 325 mg, Oral, TID, Refills(s) 0, Pain Start Date: 04/11/23 Status: Ordered acetaminophen 325 mg / HYDROcodone bitartrate 5 mg oral tablet (16 sources) Opioid Agonist Start: 01-28-2022 take 1 tablet by mouth twice daily for pain [place] 325 mg-5 mg oral tablet 1 tab(s), Oral, BID for pain, Refill(s) 0 Start Date: 01/28/22 Status: Ordered acetaminophen 325 mg / oxyCODONE hydrochloride 5 mg oral tablet (15 sources) Opioid Agonist Start: 07-01-2023 take 1 tablet by mouth every six hours Percocet 5 mg-325 mg oral tablet 1 tab(s), Oral, q6hr, 120 tab(s), Refill(s) 0, [facility], 162.5, cm, 07/01/23 14:10:00 EDT, Height/Length Dosing, 68.8, kg, 07/01/23 14:10:00 EDT, Weight Dosing Start Date: 07/01/23 Status: Ordered Start: 04-11-2023 take 1 tablet by mindy th every four hours for pain Percocet 10/325 oral tablet 1 tab(s), Oral, q4hr for pain, Refill(s) 0 Start Date: 04/11/23 Status: Ordered Start: 12-24-2022 Percocet 5 mg- 325 mg oral tablet See Instructions, 40 tab(s), Refill(s) 0, 1-2 tab(s) Oral q4hr Start Date: 12/24/22 Status: Ordered Start: 12-05-2022 take 1.5 tablets by mouth every six hours acetaminophen-oxycodone 325 mg-5 mg Tab 1.5 tab(s), Oral, q6hr M19.9 hip fracture, 80 tab(s), Refill(s) 0, [facility], 162, cm, 11/24/22 0:45:00 EDT, Height/Length Dosing, 64.6, kg, 11/24/22 0:45:00 EDT, Weight Dosing Start Date: 12/05/22 Status: Ordered Start: 11-27-2022 oxyCODONE-acet aminophen (Percocet) 5-325 MG tablet Take by mouth. 0 11/27/2022 Active Start: 11-27-2022 Percocet 5 mg- 325 mg oral tablet See Instructions, 28 tab(s), Refill(s) 0, 1- 2 tab(s) Oral q6hr as nneded for Pain x 7 days Start Date: 11/27/22 Status: Ordered Start: 03-13-2022 End: 03-16-2022 Percocet 5 mg-325 mg oral ta blet 1 tab(s), Oral, q6hr for 3 day(s), 12 tab(s), Refill(s) 0, [facility], 165, cm, 03/13/22 16:40:00 EST, Height/Length Dosing, 73.6, kg, 03/13/22 16:40:00 EST, Weight Dosing Start Date: 03/13/22 Stop Date: 03/16/22 Status: Ordered take 1 tablet by mindy th every four hours oxyCODONE-Acetaminophen 10-325 MG 1 tablet as needed Orally every 4 hrs Active ascorbic acid 500 mg oral tablet (13 sources) Vitamin C Start: 11-27-2022 take 1 tablet by mouth twice daily ascorbic acid 500 mg Tab 500 mg = 1 tab(s), Oral, BID, Refills(s) 0 Start Date: 11/27/22 Status: Ordered take 1 capsule by mouth in the m orning ascorbic acid (Vitamin C) 500 MG ER capsule Take 500 mg by mouth in the morning. 0 Active take 1 tablet by mouth every twe lve hours Ascorbic Acid 500 MG 1 tablet Orally BID Active aspirin 81 mg delayed release oral tablet (7 sources) Platelet Aggregation Inhibitor, Nonsteroidal Anti-inflammatory Drug Start: 11-28-2022 End: 01-23-2023 take 2 tablets by mouth once daily aspirin 81 mg Oral EC Tab 162 mg = 2 tab(s), Oral, Daily, X 30 day(s), # 60 tab(s), Refills(s) 0 Start Date: 12/24/22 Stop Date: 01/23/23 Status: Ordered take 1 tablet by mouth in the mo rning aspirin 81 MG EC tablet Take 81 mg by mouth in the morning. 0 Active atorvastatin 40 mg oral tablet (9 sources) HMG-CoA Reductase Inhibitor Start: 02-13-2023 take 1 tablet by mouth once daily atorvastatin 40 mg Tab 40 mg = 1 tab(s), Oral, Daily, Refills(s) 0, High cholesterol Start Date: 02/13/23 Status: Ordered bisacodyl 5 mg delayed release oral tablet (10 sources) Stimulant Laxative Start: 11-27-2022 bisacodyl (Dulcolax) 5 MG EC tablet Take 10 mg by mouth. 0 11/27/2022 Active Start: 11-27-2022 take 2 tablets by [facility] once as needed for constipation bisacodyl 5 mg Oral EC Tab 10 mg = 2 tab(s), Oral, Once, PRN Constipation, Refills(s) 0 Start Date: 11/27/22 Status: Ordered 12 hr buPROPion hydrochloride 150 mg extended release oral tablet (20 sources) Aminoketone Start: 01-29-2022 take 2 tablets by mouth once daily buPROPion SR (Wellbutrin SR) 150 MG 12 hr tablet TAKE 2 TABLETS BY MOUTH once a day 0 11/29/2022 Active Start: 05-23-2021 [facility] buPROPion 150 mg/24 hours ER Tab 300 mg = 2 tab(s), Oral, q24hr, # 30 tab(s), Refills(s) 0 Start Date: 05/23/21 Status: Ordered Start: 05-23-2021 take 1 tablet by mindy every twenty-four hours buPROPion 150 mg/24 hours ER Tab 150 mg = 1 tab(s), Oral, q24hr, # 30 tab(s), Refills(s) 0 Start Date: 05/23/21 Status: Ordered take 1 tablet by mindy every twelve hours buPROPion HCl ER (SR) 150 MG 1 tablet Orally BID Active BuPROPion (Eqv-Wellbutrin SR) 150 mg/12 hours oral tablet, extended release (8 sources) Start: 12-03-2022 BuPROPion (Eqv-Wellbutrin SR) 150 [...] Status: Ordered celecoxib 100 mg oral capsule (8 sources) Nonsteroidal Anti-inflammatory Drug Start: 12-24-2022 take 1 capsule by mouth twice daily as needed for pain CeleBREX 100 mg Cap 100 mg = 1 cap(s), Oral, BID, PRN Pain, Refills(s) 0 Start Date: 04/11/23 Status: Ordered cephalexin 500 mg oral capsule (5 sources) Cephalosporin Antibacterial Start: 05-25-2021 take 1 capsule by mouth every eight hours Keflex 500 mg Cap 500 mg = 1 cap(s), Oral, q8hr, # 30 cap(s), Refills(s) 0, Pharmacy: [facility] #[id number], 163, cm, 05/23/21 14:18:00 EST, Height/Length Dosing, 82, kg, 05/23/21 14:18:00 EST, Weight Dosing Start Date: 05/25/21 Status: Ordered ciprofloxacin 500 mg oral tablet (4 sources) Quinolone Antimicrobial Start: 02-13-2023 take 1 [...] 05/23/21 Status: Ordered DAPTOmycin 500 mg injection (7 sources) Lipopeptide Antibacterial Start: 12-24-2022 take 400 mg intravenously every twenty-four hours DAPTOmycin 500 mg IV Inj. 400 mg, IV, q24hr, # 38 EA, Refills(s) 0 Start Date: 12/24/22 Status: Ordered Start: 12-24-2022 DAPTOmycin (Cu bicin) 500 MG injection Infuse 400 mg into a venous catheter. 0 12/24/2022 Active DAPTOmycin 500 M G as directed Intravenous Active diazePAM 2 mg oral tablet (12 sources) Benzodiazepine Start: 07-01-2023 Valium 2 mg Ta b 2 mg = 1 tab(s), Oral, TID, Every 8 hours for management of anxiety, # 90 tab(s), Refills(s) 0, Pharmacy: [facility], 162.5, cm, 07/01/23 14:10:00 EDT, Height/Length Dosing, 68.8, kg, 07/01/23 14:10:00 EDT, Weight Dosing Start Date: 07/01/23 Status: Ordered Start: 03-01-2023 End: 05-30-2023 take 1 tablet by mouth every twelve hours for anxiety and anxiety diazePAM (Valium) 2 MG tablet Indications: Anxiety Take 1 tablet (2 mg) by mouth every 12 (twelve) hours. 60 tablet 2 03/01/2023 05/30/2023 Active Start: 12-24-2022 take 1 tablet by mindy th every eight hours as needed for muscle spasms Valium 5 mg Tab 5 mg = 1 tab(s), Oral, q8hr, PRN Spasm, # 20 tab(s), Refills(s) 0 Start Date: 12/24/22 Status: Ordered take 1 tablet by mindy th every twenty-four hours diazePAM 5 MG 1 tablet as needed Orally Once a day Active dicyclomine hydrochloride 10 mg oral capsule (3 sources) Anticholinergic Start: 07-01-2023 End: 07-15-2023 take 1 capsule by mouth four times daily Bentyl 10 mg Cap 10 mg = 1 cap(s), Oral, QID, X 14 day(s), # 56 cap(s), Refills(s) 0, Pharmacy: [facility], 162.5, cm, 07/01/23 14:10:00 EDT, Height/Length Dosing, 68.8, kg, 07/01/23 14:10:00 EDT, Weight Dosing Start Date: 07/01/23 Stop Date: 07/15/23 Status: Ordered Start: 03-13-2022 End: 03-20-2022 take 1 capsule by mouth four times daily Bentyl 10 mg Cap 10 mg = 1 cap(s), Oral, QID, X 7 day(s), # 28 cap(s), Refills(s) 0, Pharmacy: [facility], 165, cm, 03/13/22 16:40:00 EST, Height/Length Dosing, 73.6, kg, 03/13/22 16:40:00 EST, Weight Dosing Start Date: 03/13/22 Stop Date: 03/20/22 Status: Ordered docusate sodium 100 mg oral capsule (1 source) Start: 11-27-2022 take 1 capsule by mouth twice daily Colace 100 mg Cap 100 mg = 1 cap(s), Oral, BID, Refills(s) 0 Start Date: 11/27/22 Status: Ordered 0.5 ml dulaglutide 1.5 mg/ml auto-injector (20 sources) GLP-1 Receptor Agonist Start: 07-01-2023 inject 0.5 mL by subcutaneous injection every week Trulicity Pen 0.75 mg/0.5 mL subcutaneous solution Inject 0.5ml subcutaneously once a week on Mondays, Refills(s) 0 Start Date: 07/01/23 Status: Ordered Start: 05-23-2021 inject 4.5 mg [...] Ordered Start: 05-23-2021 take 1 capsule by mo uth once daily esomeprazole 20 mg Cap-DR 20 mg = 1 cap(s), Oral, Daily, # 30 cap(s), Refills(s) 0, Control of stomach acid Start Date: 05/23/21 Status: Ordered take 1 capsule by mo uth once daily in the morning esomeprazole (NexIUM) [address] capsule TAKE 1 CAPSULE BY MOUTH EVERY MORNING prior to any food or medications 0 Active ferrous sulfate 325 mg oral tablet (13 sources) Start: 11-27-2022 take 1 tablet by mouth once daily ferrous sulfate 325 mg Tab 325 mg = 1 tab(s), Oral, Daily, Refills(s) 0 Start Date: 11/27/22 Status: Ordered take 1 tablet by mouth three vadim es weekly Ferrous Sulfate 325 (65 Fe) MG 1 tablet Orally Three times a Week Active gabapentin 300 mg oral capsule (20 sources) Anti-epileptic Agent Start: 07-01-2023 take 1 capsule by mouth three times daily gabapentin 300 mg Cap 300 mg = 1 cap(s), Oral, TID, # 90 cap(s), Refills(s) 1, Pharmacy: [facility], 162.5, cm, 07/01/23 14:10:00 EDT, Height/Length Dosing, 68.8, kg, 07/01/23 14:10:00 EDT, Weight Dosing Start Date: 07/01/23 Status: Ordered Start: 01-28-2022 take 800 mg by mouth three times daily gabapentin 800 mg, Oral, TID, Refills(s) 0, Neuropathy Start Date: 01/28/22 Status: Ordered Start: 02-26-2018 take 1 capsule by mo uth three times daily gabapentin 300 mg Cap 300 mg = 1 cap(s), Oral, TID, Refills(s) 0, Neuropathy Start Date: 02/26/18 Status: Ordered heparin (2 sources) Unfractionated Heparin, Anti-coagulant Start: 02-13-2023 heparin flush 1 unit(s), IV Push, q24hr, 1 unit/ml, total 5 ml flush, Refills(s) 0 Start Date: 02/13/23 Status: Ordered HEPARIN & NACL LOCK FLUSH IV (1 source) HEPARIN & NACL LOCK FLUSH IV Infuse into a venous catheter. 0 Active hydrOXYzine hydrochloride 25 mg oral tablet (20 [...] insulin aspart, human 100 unt/ml injectable solution (14 sources) Insulin Analog Start: 12-19-2022 NovoLOG 100 units/mL injectable solution Refills(s) 0 Start Date: 12/19/22 Status: Ordered Start: 12-19-2022 NovoLOG FlexPe n 100 units/mL injectable solution Refills(s) 0 Start Date: 12/19/22 Status: Ordered Start: 05-23-2021 NovoLog slidin g scale, SubCutaneous, QIDACHS, Refills(s) 0 Start Date: 05/23/21 Status: Ordered inject 1 [IU] by sub cutaneous injection three times daily NovoLOG FLEXPEN 100 UNIT/ML pen INJECT SUBCUTANEOUSLY THREE TIMES DAILY AT 5 UNITS base WITH sliding scale 0 Active insulin glargine 100 unt/ml injectable solution (20 [...] Blood glucose Start Date: 08/14/20 Status: Ordered inject 15 [IU] by mahoney bcutaneous injection once daily at bedtime Lantus 100 UNIT/ML injection Inject 15 units sub-q daily at bedtime 0 Active insulin lispro 25 unt/ml / insulin lispro protamine, human 75 unt/ml injectable suspension (1 source) Insulin Analog insulin lispro protamine-insulin lispro (HumaLOG Mix 75-25) (75-25) 100 UNIT/ML suspension injection Inject under the skin 2 (two) times a day with meals. 0 Active LABS FOR DAPTOMYCIN (3 sources) Start: 3 LABS FOR DAPTOMYCIN LABS FOR DAPTOMYCIN, WEEKLY BMP, CRP AND CPK ON 12/30/22, 01/06/23, 01/13/23,01/20/23, 3, 02/03/23, Print Requisition, Supply Start Date: 12/24/22 Status: Ordered levothyroxine sodium 0.112 mg oral tablet (20 sources) l-Thyroxine Start: 2 take 1 tablet by mouth once daily levothyroxine 112 mcg (0.112 mg) Tab 112 mcg = 1 tab(s), Oral, Daily, # 30 tab(s), Refills(s) 0, Thyroid Start Date: 05/23/21 Status: Ordered take 1 tablet by mouth in the mo rning levothyroxine (Synthroid, Levoxyl) 112 MCG tablet Take 112 mcg by mouth in the morning. 0 Active lisinopril 10 mg oral tablet (20 sources) Angiotensin Converting Enzyme Inhibitor Start: 07-01-2023 take 1 tablet by mouth once daily lisinopril 10 mg Tab 10 mg = 1 tab(s), Oral, Daily, # 30 tab(s), Refills(s) 1, Pharmacy: [facility], 162.5, cm, 07/01/23 14:10:00 EDT, Height/Length Dosing, 68.8, kg, 07/01/23 14:10:00 EDT, Weight Dosing Start Date: 07/01/23 Status: Ordered Start: 02-02-2022 End: 11-29-2022 lisinopril 20 mg Tab 20 mg = 1 tab(s), Tab, Oral, Start date 11/29/22 9:00:00 EDT, 11/28/22 21:10:00 EDT Start Date: 11/29/22 Stop Date: 11/29/22 Status: Completed Start: 08-14-2020 take 1 tablet by mindy once daily lisinopril 40 mg Tab 40 [...] stomach acid Start Date: 04/10/22 Status: Ordered Nutritional Supplements (Boost Glucose Control) liquid (1 source) Nutritional Supplements (Boost Glucose Control) liquid Take by mouth. 0 Active nystatin 056969 unt/ml topical cream (4 sources) Polyene Antifungal Start: 12-19-2022 nystatin Top 100,000 units/g Crm 15 gram 1 rhonda, Topical, BID, 15 gram, Refill(s) 0 Start Date: 12/19/22 Status: Ordered omeprazole 20 mg delayed release oral capsule (7 sources) Proton Pump Inhibitor Start: 02-13-2023 take 1 capsule by mouth once daily omeprazole 20 mg Cap-DR 20 mg = 1 cap(s), Oral, Daily, Refills(s) 0, Gas Start Date: 02/13/23 Status: Ordered take 1 tablet by mouth before me altime omeprazole OTC (PriLOSEC OTC) 20 MG EC tablet Take 20 mg by mouth in the morning. Take before meals. Do not crush, chew, or split. . 0 Active ondansetron 4 mg oral tablet (2 sources) Serotonin-3 Receptor Antagonist Start: 07-01-2023 take 1 tablet by mouth every six hours as needed for nausea ondansetron 4 mg Tab 4 mg = 1 tab(s), Oral, q6hr, PRN Nausea/Vomiting, # 90 tab(s), Refills(s) 1, Pharmacy: [facility], 162.5, cm, 07/01/23 14:10:00 EDT, Height/Length Dosing, 68.8, kg, 07/01/23 14:10:00 EDT, Weight Dosing Start Date: 07/01/23 Status: Ordered 24 hr oxybutynin chloride 5 mg extended release oral tablet (1 source) Cholinergic Muscarinic Antagonist Start: 07-01-2023 take 1 tablet by mouth once daily oxybutynin 5 mg ER Tab 5 mg = 1 tab(s), Oral, Daily, # 30 tab(s), Refills(s) 1, Pharmacy: [facility], 162.5, cm, 07/01/23 14:10:00 EDT, Height/Length Dosing, 68.8, kg, 07/01/23 14:10:00 EDT, Weight Dosing Start Date: 07/01/23 Status: Ordered PARoxetine hydrochloride 40 mg oral tablet (20 sources) Serotonin Reuptake Inhibitor Start: 12-19-2022 take 1 tablet by mouth once daily paroxetine 40 mg Tab 40 mg = 1 tab(s), Oral, Daily, # 90 tab(s), Refills(s) 0 Start Date: 12/19/22 Status: Ordered Start: 08-14-2020 take 1 tablet by mindy th five times daily Paxil 10 mg Tab 50 mg = 5 tab(s), Oral, Daily, one tablet 5 times a day, Depression Start Date: 08/14/20 Status: Ordered Start: 08-14-2020 take 5 tablets by mo [facility] [place] once daily Paxil 10 mg Tab 50 mg = 5 tab(s), Oral, Daily, Depression Start Date: 08/14/20 Status: Ordered take 1 tablet by mindy every twenty-four hours rosuvastatin calcium 20 mg [...] tablet (20 sources) Serotonin Reuptake Inhibitor Start: 04-11-2023 traZODONE 50 mg Tab 25 mg = 0.5 tab(s), Oral, Daily, Refills(s) 0, Depression Start Date: 04/11/23 Status: Ordered Start: 04-11-2023 take 1 tablet by mindy th once daily at bedtime traZODONE 100 mg Tab 100 mg = 1 tab(s), Oral, Daily, At bedtime, # 30 tab(s), Refills(s) 1, Pharmacy: [facility], 162.5, cm, 07/01/23 14:10:00 EDT, Height/Length Dosing, 68.8, kg, 07/01/23 14:10:00 EDT, Weight Dosing Start Date: 07/01/23 Status: Ordered Start: 05-23-2021 take 2 tablets by mo ut once daily at bedtime traZODONE 100 mg [...] Nausea/Vomiting, # 16 tab(s), Refills(s) 0, Pharmacy: [facility], 162.6, cm, 11/21/21 19:39:00 EDT, Height/Length [...] follow instructions per packaging and physician's handout, [facility], 165, cm, 04/10/22 11:05:00 EST, Height/Length Dosing, 70.4, kg, 04/10/22 11:05:00 EST, Weight Dosing Start Date: 04/10/22 Status: Ordered potassium chloride 20 meq extended release oral tablet (9 sources) Start: 02-13-2023 take 2 tablets by mouth once daily potassium chloride 20 mEq ER Tab 40 mEq = 2 tab(s), Oral, Daily, Refills(s) 0, Prophylaxis Start Date: 02/13/23 Status: Ordered Start: 02-13-2023 take 1 tablet by mindy once daily potassium chloride 20 mEq ER Tab 20 mEq = 1 tab(s), Oral, Daily, Refills(s) 0, Prophylaxis Start Date: 02/13/23 Status: Ordered take 20 mEq by mouth in the morning potassium chloride (Klor-Con) 20 MEQ packet Take 20 mEq by mouth in the morning and 20 mEq before bedtime. 0 Active take 2 tablets by mo uth [...] disorder; Translations: [Thrombocytopenia, unspecified] Onset: 3 Chronic Complications of surgical procedures or medical care [...] Anemia 11-26-2017 Episodic Deficiency and other anemia (9 sources) Iron deficiency anemia; Translations: [Iron deficiency [...] Episodic Fracture of neck of femur (hip) (10 sources) Closed fracture of neck of femur; [...] above: left right Other aftercare (2 sources) shelter (current) use of antibiotics Episodic Other and unspecified benign neoplasm (16 sources) History of polyp of colon; Translations: [Personal history of colonic polyps] Onset: 3 Episodic Other circulatory disease (1 source) Low blood pressure; Translations: [Hypotension, unspecified] Onset: 2 Episodic Other connective tissue disease (3 sources) Hip joint prosthesis present; Translations: [Presence of unspecified artificial hip joint] Chronic Other connective tissue disease (2 sources) Presence of unspecified artificial hip joint Chronic Other diseases of bladder and urethra (1 source) Detrusor overactivity; Translations: [Overactive bladder] Onset: 4 Chronic Other diseases of bladder and urethra (1 source) Overactive bladder 07-01-2023 Chronic Other gastrointestinal disorders (20 sources) Irritable bowel syndrome 03-23-2020 Chronic Other gastrointestinal disorders (1 source) Diarrhea; Translations: [Diarrhea, unspecified] Onset: 2 Episodic Other gastrointestinal disorders (8 sources) Heartburn; Translations: [Heartburn] Onset: 3 Episodic Other gastrointestinal disorders (16 sources) Dysphagia; Translations: [Dysphagia, unspecified] Onset: 3 Episodic Other injuries and conditions due to external causes (2 sources) Injury of head; Translations: [Unspecified injury of head, initial encounter] Onset: 3 Episodic Other nervous system disorders (20 sources) Neuropathy 12-22-2018 Chronic Other nervous system disorders (3 sources) Chronic pain; Translations: [Other chronic pain] [...] (7 sources) Weight loss 04-04-2022 Episodic Other nutritional; endocrine; and metabolic disorders (1 source) Overweight in adulthood with body mass index of 25 or more but less than 30; Translations: [Body mass index (BMI) 26.0-26.9, adult] Onset: 4 Episodic Other screening for suspected conditions (not mental disorders or infectious disease) (20 sources) Full blood count abnormal 08-14-2020 Episodic Other skin disorders (20 sources) Mass of neck 12-29-2018 Episodic Residual codes; unclassified (20 sources) Chronic pain 07-21-2019 Episodic Residual codes; unclassified (2 sources) Procedure carried out on subject; Translations: [Encounter for prophylactic measures, unspecified] Onset: 2 Episodic Residual codes; unclassified (2 sources) Patient encounter status; Translations: [Other specified health [...] Onset: 3 12-22-2018 Chronic Urinary tract infections (9 sources) Urinary tract infectious disease; Translations: [Urinary tract infection, site not specified] Onset: 3 Episodic Viral infection (2 sources) Herpes zoster with complication; Translations: [Zoster with other complications] Onset: 4 Episodic Past or Other Problems Problem Classification Problem Date Documented Da te Episodic/Chronic Calculus of urinary tract (20 sources) Kidney stone Resolved: 10-30-2010 10-31-2017 Episodic Complication of device; implant or graft (3 sources) Infection and inflammatory reaction due to other internal joint prosthesis, initial encounter; Translations: [Infection and inflammatory reaction due to unspecified internal joint prosthesis, subsequent encounter] Onset: 12-19-2022 Episodic Pathological fracture (1 source) Age-related osteoporosis with current pathological fracture, right femur, initial encounter for fracture; Translations: [M80.051A] Onset: 11-24-2022 Episodic Residual codes; unclassified (20 sources) Insomnia Resolved: 05-20-2012 10-31-2017 Episodic Results Test Name Value Interpretation Reference Range Facility Family Medicine Office/Clini c Noteon 07-09-2023 [facility] Medicine Office/Clinic Note Normal [facility] Comment on above: Result Comment: Elec tronically Signed By: Marcelo Call DO.br\Date and Time Signed: 07/09/23 15:53 EDT Ambulatory Visit Summaryon 0 07-01-2023 Ambulatory Visit Summary [facility] Legal Correspondence Officeo n 07-01-2023 Legal Correspondence Office [id number] 1830#1.00TIFF [facility] Patient Educationon 07-01-19 Patient Education Normal [facility] Consent for Anesthesiaon Consent for Anesthesia [id number]#1.00TIFF [facility] IntraOperative Documentson 0 1-18-2024 IntraOperative Documents [id number]#1.00TIFF Normal [facility] IntraOperative Documentson 0 04-15-2023 IntraOperative Documents [id number]#1.00TIFF Normal [facility] Consent for Anesthesiaon Consent for Anesthesia [id number] 0 [id number]#1.00TIFF Normal [facility] Discharge Instructionson Discharge Instructions [id number]#1.00TIFF Normal [facility] Main OR Intraoperative Recor don 04-14-2023 Main OR Intraoperative Record Normal [facility] Outside Recordson 04-14-2023 Outside Records [id number]#1.00TIFF Normal [facility] Preoperative Documentson Preoperative Documents [id number]#1.00TIFF Normal [facility] Capillary Glucose POCon 03-31 Glucose [Mass/Vol] 177 mg/dL High 55-99 [facility] Comment on above: Result Comment: Lucille ronak Meter Performed By: #### 2 [id number] ####[facility] [address] [place] [address] Consent for Procedure/Surger yon 04-11-2023 Consent for Procedure/Surgery [id number]#1.00TIFF Normal [facility] Consent for Treatmenton 03-31 Consent for Treatment [id number]#1.00TIFF Normal [facility] Discharge Instructionson Discharge Instructions Normal [facility] Comment on above: Result Comment: Elec tronically Signed By: Edgar LEES, Arlette Keen\.br\Date and Time Signed: 04/11/23 13:31 EST Discharge Instructions Normal [facility] Comment on above: Result Comment: Elec tronically Signed By: Jaceklin LEES, Becca Palomares\.br\Date and Time Signed: 04/11/23 13:07 EST H&P Updateon 04-11-2023 H&P Update [id number]#1.00TIFF Normal [facility] Inpatient Patient Summaryon 04-11-2023 Inpatient Patient Summary Normal [facility] Main OR PACU I Recordon 03-31 Main OR PACU I Record Normal [facility] Monitor Recordon 04-11-2023 Monitor Record [id number]#1.00TIFF Normal [facility] Monitor Record [id number]#1.00TIFF Normal [facility] Operative Reporton Operative Report Normal [facility] Comment on above: Result Comment: Elec tronically Signed By: Joaquim Rice DO\.br\Date and Time Signed: 04/11/23 12:58 EST Outpatient Surgery Discharge Instructionon 04-11-2023 Outpatient Surgery Discharge Instruction Normal [facility] Patient Education - Texton 0 04-11-2023 Patient Education - Text Normal [facility] Progress Note-Physicianon Progress Note-Physician Normal [facility] Comment on above: Result Comment: Elec tronically Signed By: Can Kaplan Jr., DO\.br\Date and Time Signed: 04/11/23 16:31 EST Progress Note-Physician Normal [facility] Comment on above: Result Comment: Elec tronically Signed By: Can Kaplan Jr., DO.br\Date and Time Signed: 04/11/23 10:43 EST Insurance Correspondence Off iceon 04-10-2023 Insurance Correspondence Office [id number]#1.00TIFF Normal [facility] Prescriptions/Work Noteson 1 05-14-2022 Prescriptions/Work Notes [id number]#1.00TIFF Normal [facility] CHEMISTRYOrdered By: SYSTEM SYSTEM on 02-13-2023 Anion gap [Moles/Vol] 10 mmol/L Normal 6 - 16 mEq/L [facility] Remisol Chloride [Moles/Vol] 112 mmol/L High 101 - 1 11 mmol/L [facility] Remisol CO2 [Moles/Vol] 21 mmol/L Normal 21 - 31 mmol/L [facility] Remisol Creatinine [Mass/Vol] 0.7 mg/dL Normal 0.5 - 1.3 mg/dL [facility] Remisol GFR/1.73 sq M.predicted among non-blacks MDRD (S/P/Bld) [Vol rate/Area] 94 mL/min/1.73 m2 Normal >=59mL/min/1 .73 m2 [facility] Chem S Comment on above: Interpretive Data: C hronic kidney disease could be indicated at eGFR's of less than 60 mL/min/1.73m2. Kidney failure is indicated at less than 15 mL/min/1.73m2. Glucose post fast [Mass/Vol] 147 mg/dL High 55 - 99 mg/dL [facility] Remisol Potassium [Moles/Vol] 3.5 mmol/L Normal 3.5 - 5.3 mmol/L [facility] Remisol Sodium [Moles/Vol] 139 mmol/L Normal 135 - 145 mmol/L [facility] Remisol Urea nitrogen [Mass/Vol] 14 mg/dL Normal 5 - 21 mg/d L [facility] Remisol CHEMISTRYOrdered By: Lab ROP User on 02-13-2023 Glucose [Mass/Vol] 149 mg/dL High 55 - 99 mg/dL [facility] POC Subsection POC Username NELLY ROJAS Invalid Interpretation Code [facility] POC Subsection Sodium [Moles/Vol] 946873524120 mmol/L Invalid Interpretation Code [facility] POC Subsection Sodium [Moles/Vol] 276271335 mmol/L Invalid Interpretation Code [facility] POC Subsection HEMATOLOGYOrdered By: Gail Felix on 02-13-2023 Erythrocyte distribution width (RBC) [Ratio] 17.0 % High 10.9 - 14.2 % [facility] HemeAutoSS Hematocrit (Bld) [Volume fraction] 30.8 % Low 34.0 - 46.0 % [facility]eAutoSS Hemoglobin (Bld) [Mass/Vol] 9.9 g/dL Low 12.0 - 16.0 gm/dL [facility]eAuto[facility] MCH (RBC) [Entitic mass] 28.3 pg Normal 27. 0 - 34.0 pg [facility]eAuto[facility] MCHC (RBC) [Mass/Vol] 32.2 g/dL Normal 31.4 - 36.0 gm/dL [facility]eAuto[facility] MCV (RBC) [Entitic vol] 87.8 fL Normal 80.0 - 100.0 fL [facility] Platelet mean volume (Bld) [Entitic vol] 8.6 fL Normal 6.4 - 10.8 fL [facility]eAuto[facility] Platelets (Bld) [#/Vol] 200.0 E9/L Normal 150. 0 - 500.0 E9/L [facility]eAuto[facility] RBC (Bld) [#/Vol] 3.5 E12/L Low 4.3 - 5.9 E12/L [facility]eAuto[facility] WBC corrected for nucl RBC Auto (Bld) [#/Vol] 8.3 E9/L Normal 4.0 - 11.0 E9/L [facility]eAuto[facility] No Panel InformationOrdered By: Pita Butterfield on 02-13-2023 GS Occasional epithelial cells Occasional White Blood Cells No organisms seen. [facility] Blood Transfusion Recordon 1 04-07-2022 Blood Transfusion Record [id number]#1.00TIFF Normal [facility] IntraOperative Documentson 1 IntraOperative Documents [id number]#1.00TIFF Normal [facility] IntraOperative Documentson 1 IntraOperative Documents [id number]#1.00CD:127 Normal [facility] C Blood Charcoalon 3 Blood Culture Charcoal Normal [facility] Comment on above: Performed By: #### 1 [id number] ####[facility] [address] [place] [address] Consent for PICC lineon 11-30 Consent for PICC line [id number]#1.00CD:127 [facility] Insurance Correspondence Off iceon 12-25-2022 Insurance Correspondence Office [id number]#1.00CD:127 [facility] Halfway Recordson 12-25 Halfway Records [id number]#1.00CD:127 [facility] Transfer Documentson 023 Transfer Documents [id number]#1.00CD:127 [facility] CHEMISTRYOrdered By: Lab ROP User on 12-24-2022 Glucose [Mass/Vol] 102 mg/dL High 55 - 99 mg/dL [facility] POC Subsection Comment on above: Result Comment: Fausto CHAUDHARY POC Username IRINA JANE Invalid Interpretation Code [facility] POC Subsection Sodium [Moles/Vol] 655040682512 mmol/L Invalid Interpretation Code [facility] POC Subsection Sodium [Moles/Vol] 592423375 mmol/L Invalid Interpretation Code [facility] POC Subsection Glucose [Mass/Vol] 194 mg/dL High 55 - 99 mg/dL [facility] POC Subsection Comment on above: Result Comment: Fausto CHAUDHARY POC Username IRINA AJNE Invalid Interpretation Code [facility] POC Subsection Sodium [Moles/Vol] 506046895562 mmol/L Invalid Interpretation Code [facility] POC Subsection Sodium [Moles/Vol] 086396169 mmol/L Invalid Interpretation Code [facility] POC Subsection Glucose [Mass/Vol] 130 mg/dL High 55 - 99 mg/dL [facility] POC Subsection Comment on above: Result Comment: Fausto CHAUDHARY POC Username ANTOLIN SHPEPARD Invalid Interpretation Code [facility] POC Subsection Sodium [Moles/Vol] 172733186108 mmol/L Invalid Interpretation Code [facility] POC Subsection Sodium [Moles/Vol] 929445439 mmol/L Invalid Interpretation Code [facility] POC Subsection Capillary Glucose POCon 11-30 Glucose [Mass/Vol] 102 mg/dL High 55-99 [facility] Comment on above: Result Comment: Fausto CHAUDHARY Performed By: #### 2 [id number] ####[facility] [address] [place] [address] Glucose [Mass/Vol] 194 mg/dL High 55-99 [facility] Comment on above: Result Comment: Fausto CHAUDHARY Performed By: #### 2 [id number] ####[facility] [address] [place] [address] Glucose [Mass/Vol] 130 mg/dL High 55-99 [facility] Comment on above: Result Comment: Fausto CHAUDHARY Performed By: #### 2 [id number] ####[facility] [address] [place] [address] Glucose [Mass/Vol] 189 mg/dL High 55-99 [facility] Comment on above: Result Comment: Fausto CHAUDHARY Performed By: #### 2 [id number] ####[facility] [address] [place] [address] Discharge Note-Nursingon Discharge Note-Nursing Normal [facility] Inpatient Clinical Summaryon 12-24-2022 Inpatient Clinical Summary Normal [facility] Inpatient Patient Summaryon 12-24-2022 Inpatient Patient Summary Normal [facility] Insurance Correspondence Off iceon 12-24-2022 Insurance Correspondence Office [id number]#1.00CD:127 Normal [facility] Interdisciplinary Note - Hardeep e Manageron 12-24-2022 Interdisciplinary Note - Outside Plant Engineer Normal [facility] Comment on above: Result Comment: Elec tronically Signed By: Radha Prabhakar\.br\Date and Time Signed: 12/24/22 15:54 EDT Progress Note-Physicianon Progress Note-Physician Normal [facility] Comment on above: Result Comment: Elec tronically Signed By: FALLON BANKS, Soni\.br\Date and Time Signed: 12/24/22 15:29 EDT Auto Diffon 12-23-2022 Basophils/100 WBC (Bld) 0.5 % Normal 0.0-2.0 [facility] Comment on above: Order Comment: Order Added by Discern Expert. Performed By: #### 2 176674, 2964374, 2621640, 7855159, 0251122, 50441470 ####[facility] [address] [place] [address] Basophils/Leukocytes Auto (Bld) [Pure # fraction] 0.0 E9/L Normal 0.0-0.2 [facility] Comment on above: Order Comment: Order Added by Discern Expert. Performed By: #### 2 379809, 2469903, 0432493, 7064818, 5187468, 16861682 ####[address] [place] [address] Eosinophils/100 WBC (Bld) 5.0 % Normal 0.0-8.0 [facility] Comment on above: Order Comment: Order Added by Discern Expert. Performed By: #### 2 892295, 3992155, 4762315, 7037886, 2941940, 52363548 ####[address] [address] Eosinophils/Leukocytes Auto (Bld) [Pure # fraction] 0.3 E9/L Normal 0.0-0.5 [facility] Comment on above: Order Comment: Order Added by Discern Expert. Performed By: #### 2 940953, 4132109, 7013809, 3262499, 2825599, 10343460 ####[facility] [address] [place] [address] Lymphocytes/100 WBC (Bld) 23.3 % Normal 14.0-50.0 [facility] Comment on above: Order Comment: Order Added by Discern Expert. Performed By: #### 2 169398, 0206797, 0444350, 7164389, 2218118, 57714997 ####[address] [address] Lymphocytes/Leukocytes Auto (Bld) [Pure # fraction] 1.5 E9/L Normal 1.0-4.0 [facility] Comment on above: Order Comment: Order Added by Discern Expert. Performed By: #### 2 501485, 7303341, 0954866, 2833330, 7421366, 85172124 ####[facility] [address] [place] [address] Monocytes/100 WBC (Bld) 14.2 % High 4.0-14.0 [facility] Comment on above: Order Comment: Order Added by Discern Expert. Performed By: #### 2 593194, 5407508, 6979521, 1888503, 7214742, 02263398 ####[address] [place] [address] Monocytes/Leukocytes Auto (Bld) [Pure # fraction] 0.9 E9/L Normal 0.2-1.0 [facility] Comment on above: Order Comment: Order Added by Discern Expert. Performed By: #### 2 839612, 8727811, 6218860, 0076118, 5708013, 05265695 ####[address] [place] [address] Neutrophils/100 WBC (Bld) 57.0 % Normal 36.0-75.0 [facility] Comment on above: Order Comment: Order Added by Discern Expert. Performed By: #### 2 882016, 7823969, 5943416, 8035769, 6489721, 21033022 ####[address] [place] [address] Neutrophils/Leukocytes Auto (Bld) [Pure # fraction] 3.6 E9/L Normal 2.0-7.5 [facility] Comment on above: Order Comment: Order Added by Discern Expert. Performed By: #### 2 107942, 5665045, 5284524, 1018676, 7906936, 65676450 ####[address] [place] [address] BUNon 12-23-2022 Urea nitrogen [Mass/Vol] 15 mg/dL Normal 5-21 [facility] Comment on above: Performed By: #### 2 081365, 5881261, 5164564, 5924459, 0953816, 32711578 ####[facility] [address] [place] [address] C Woundon 12-23-2022 Wound Culture Normal [facility] Comment on above: Performed By: #### 2 983202 ####[facility] [address] [place] [address] Wound Culture Normal [facility] Comment on above: Performed By: #### 2 824080 ####[address] [address] CBC w/ Auto Diffon Erythrocyte distribution width (RBC) [Ratio] 17.4 % High 10.9-14.2 [facility] Comment on above: Performed By: #### 2 224342, 9568371, 9240076, 9588892, 2467384, 43756530 ####[address] [address] Hematocrit (Bld) [Volume fraction] 21.5 % Low 34.0-46.0 [facility] Comment on above: Performed By: #### 2 145123, 8329392, 1068475, 5021726, 8942312, 89222254 ####[address] [place] [address] Hemoglobin (Bld) [Mass/Vol] 7.1 g/dL Low 12.0-16.0 [facility] Comment on above: Performed By: #### 2 952386, 7755913, 5388793, 6505681, 1209744, 38866920 ####[address] [place] [address] MCH (RBC) [Entitic mass] 28.2 pg Normal 27.0-34.0 [facility] Comment on above: Performed By: #### 2 894541, 3043678, 2795304, 7601507, 4340890, 38903981 ####[facility] [address] [place] [address] MCHC (RBC) [Mass/Vol] 32.9 g/dL Normal 31.4-36.0 [facility] Comment on above: Performed By: #### 2 952144, 3295162, 1946502, 6734804, 9132534, 80185592 ####[facility] [address] [place] [address] MCV (RBC) [Entitic vol] 85.7 fL Normal 80.0-100.0 [facility] Comment on above: Performed By: #### 2 313129, 6025825, 1953925, 9389801, 4720862, 79401713 ####[facility] [address] [place] [address] Platelet mean volume (Bld) [Entitic vol] 7.7 fL Normal 6.4-10.8 [facility] Comment on above: Performed By: #### 2 340878, 1665800, 5684485, 6693465, 9361710, 16247992 ####[facility] [address] [place] [address] Platelets (Bld) [#/Vol] 316.0 E9/L Normal 150.0-500.0 [facility] Comment on above: Performed By: #### 2 384846, 9840713, 8523165, 1384172, 1022818, 57338074 ####[facility] [address] [place] [address] RBC (Bld) [#/Vol] 2.5 E12/L Low 4.3-5.9 [facility] Comment on above: Performed By: #### 2 420037, 0717492, 8340973, 1361782, 8998582, 82887929 ####[address] [place] [address] WBC corrected for nucl RBC Auto (Bld) [#/Vol] 6.3 E9/L Normal 4.0-11.0 [facility] Comment on above: Performed By: #### 2 232784, 5309463, 4017526, 4243966, 5579112, 19232491 ####[facility] [address] [place] [address] CHEMISTRYOrdered By: SYSTEM SYSTEM on 12-23-2022 Anion gap [Moles/Vol] 1 mmol/L Low 6 - 16 mEq/L F [facility] Remisol Chloride [Moles/Vol] 119 mmol/L High 101 - 1 11 mmol/L [facility] Remisol CO2 [Moles/Vol] 25 mmol/L Normal 21 - 31 mmol/L [facility] Remisol Creatinine [Mass/Vol] 0.7 mg/dL Normal 0.5 - 1.3 mg/dL [facility] Remisol GFR/1.73 sq M.predicted among non-blacks MDRD (S/P/Bld) [Vol rate/Area] 94 mL/min/1.73 m2 Normal >=59mL/min/1 .73 m2 [facility] Chem S Comment on above: Interpretive Data: C hronic kidney disease could be indicated at eGFR's of less than 60 mL/min/1.73m2. Kidney failure is indicated at less than 15 mL/min/1.73m2. Potassium [Moles/Vol] 4.0 mmol/L Normal 3.5 - 5.3 mmol/L [facility] Remisol Sodium [Moles/Vol] 141 mmol/L Normal 135 - 145 mmol/L [facility] Remisol Urea nitrogen [Mass/Vol] 15 mg/dL Normal 5 - 21 mg/d L [facility] Remisol Capillary Glucose POCon 11-30 Glucose [Mass/Vol] 118 mg/dL High 55-99 [facility] Comment on above: Result Comment: Fausto CHAUDHARY Performed By: #### 2 [id number] ####[facility] [address] [place] [address] Glucose [Mass/Vol] 105 mg/dL High 55-99 [facility] Comment on above: Result Comment: Fausto CHAUDHARY Performed By: #### 2 [id number] ####[facility] [address] [place] [address] Glucose [Mass/Vol] 104 mg/dL High 55-99 [facility] Comment on above: Result Comment: Fausto rubi RN/ Performed By: #### 2 [id number] ####[facility] [address] [place] [address] Glucose [Mass/Vol] 123 mg/dL High 55-99 [facility] Comment on above: Result Comment: Lucille ronak Meter Performed By: #### 2 [id number] ####[facility] [address] [place] [address] Consent for Anesthesiaon Consent for Anesthesia [id number]#1.00CD:127 Normal [facility] Consent for Blood Transfusio non 12-23-2022 Consent for Blood Transfusion [id number]#1.00CD:127 Normal [facility] Consent for Procedure/Surger yon 12-23-2022 Consent for Procedure/Surgery [id number]#1.00CD:127 Normal [facility] Consent for Treatmenton 11-30 Consent for Treatment [id number]#1.00CD:127 Normal [facility] Creatinineon 12-23-2022 Creatinine [Mass/Vol] 0.7 mg/dL Normal 0.5-1.3 [facility] Comment on above: Performed By: #### 2 169552, 5565828, 6287439, 5519237, 2183559, 85491544 ####[facility] [address] [place] [address] HEMATOLOGYOrdered By: SYSTEM SYSTEM on 12-23-2022 Basophils/100 [...] MCH (RBC) [Entitic mass] 28.2 pg Normal 27. 0 - 34.0 pg [facility] HemeAutoSS MCHC (RBC) [...] 2.5 E12/L Low 4.3 - 5.9 E12/L [facility] HemeAutoSS WBC corrected for nucl RBC Auto (Bld) [#/Vol] 6.3 E9/L Normal 4.0 - 11.0 E9/L [facility] HemeAutoSS Interdisciplinary Note - Hardeep e Manageron 12-23-2022 Interdisciplinary Note - Outside Plant Engineer [facility] Comment on above: Result Comment: Elec tronically Signed By: Kirstin Meyer\Date and Time Signed: 12/23/22 14:46 EDT IntraOperative Documentson 0 12-23-2022 IntraOperative Documents [id number]#1.00CD:127 Normal [facility] IntraOperative Documents [id number]#1.00CD:127 Normal [facility] Lyteson 12-23-2022 Anion gap [Moles/Vol] 1 mmol/L Low 6-16 [facility] Comment on above: Performed By: #### 2 898565, 8720259, 4280942, 5088805, 7468358, 96630695 ####[facility] [address] [place] [address] Chloride [Moles/Vol] 119 mmol/L High 101-111 [facility] Comment on above: Performed By: #### 2 545423, 4504610, 5217875, 0238362, 5404326, 27992353 ####[facility] [address] [place] [address] CO2 [Moles/Vol] 25 mmol/L Normal 21-31 [facility] Comment on above: Performed By: #### 2 042263, 9864588, 3141582, 2250001, 8029283, 56102861 ####[facility] [address] [place] [address] Potassium [Moles/Vol] 4.0 mmol/L Normal 3.5-5.3 [facility] [facility] Comment on above: Performed By: #### 2 468554, 2541809, 2773638, 1502488, 5399643, 69109616 ####[facility] [address] [place] [address] Sodium [Moles/Vol] 141 mmol/L Normal 135-145 [facility] Comment on above: Performed By: #### 2 996058, 7274215, 1138829, 0738187, 4319036, 21951242 ####[facility] [address] [place] [address] Main OR Intraoperative Recor don 12-23-2022 Main OR Intraoperative Record Normal [facility] Progress Note-Physicianon Progress Note-Physician Normal F [facility] Comment on above: Result Comment: Elec tronically Signed By: Joaquim Rice DO\.br\Date and Time Signed: 12/23/22 19:04 EDT Progress Note-Physician Normal F [facility] Comment on above: Result Comment: Elec tronically Signed By: Soni PADGETT MD\.br\Date and Time Signed: 12/23/22 10:01 EDT XR Chest Single Viewon 12-23 XR Chest Single View Normal [facility] eGFRon 12-23-2022 GFR/1.73 sq M.predicted among non-blacks MDRD (S/P/Bld) [Vol rate/Area] 94 mL/min/1.73 m2 Normal >=59 [facility] Comment on above: Order Comment: Order added by Discern Expert. Result Comment: Field Professional marquez kidney disease could be indicated at eGFR's of less than 60 mL/min/1.73m2. Kidney failure is indicated at less than 15 mL/min/1.73m2. Performed By: #### 2 520074, 9576572, 6192429, 0000948, 0135710, 94294482 ####[facility] [address] [place] [address] Auto Diffon 12-22-2022 Basophils/100 WBC (Bld) 0.5 % Normal 0.0-2.0 [facility] Comment on above: Order Comment: Order Added by Discern Expert. Performed By: #### 2 291710, 8125977, 0378238, 6222877, 9656133, 11495800 ####[address] [place] [address] Basophils/Leukocytes Auto (Bld) [Pure # fraction] 0.0 E9/L Normal 0.0-0.2 [facility] Comment on above: Order Comment: Order Added by Discern Expert. Performed By: #### 2 919334, 7199267, 4332600, 9143382, 5716359, 64224329 ####[address] [place] [address] Eosinophils/100 WBC (Bld) 1.1 % Normal 0.0-8.0 [facility] Comment on above: Order Comment: Order Added by Discern Expert. Performed By: #### 2 363781, 0605160, 3746794, 2278760, 8255280, 30200141 ####[address] [address] Eosinophils/Leukocytes Auto (Bld) [Pure # fraction] 0.1 E9/L Normal 0.0-0.5 [facility] Comment on above: Order Comment: Order Added by Discern Expert. Performed By: #### 2 301689, 9419022, 0403119, 3603759, 6453105, 43326137 ####[address] [address] Lymphocytes/100 WBC (Bld) 20.4 % Normal 14.0-50.0 [facility] Comment on above: Order Comment: Order Added by Discern Expert. Performed By: #### 2 802039, 4136612, 6821046, 4300191, 4772849, 05732029 ####[address] [address] Lymphocytes/Leukocytes Auto (Bld) [Pure # fraction] 1.5 E9/L Normal 1.0-4.0 [facility] Comment on above: Order Comment: Order Added by Discern Expert. Performed By: #### 2 549180, 3699434, 1932837, 9935161, 3682820, 02606434 ####[address] [place] [address] Monocytes/100 WBC (Bld) 11.4 % Normal 4.0-14.0 [facility] Comment on above: Order Comment: Order Added by Discern Expert. Performed By: #### 2 743236, 1175837, 5665771, 2139659, 5104403, 46703282 ####[address] [place] [address] Monocytes/Leukocytes Auto (Bld) [Pure # fraction] 0.9 E9/L Normal 0.2-1.0 [facility] Comment on above: Order Comment: Order Added by Discern Expert. Performed By: #### 2 538956, 0880774, 9392641, 9754662, 1777090, 12620444 ####[address] [address] Neutrophils/100 WBC (Bld) 66.6 % Normal 36.0-75.0 [facility] Comment on above: Order Comment: Order Added by Discern Expert. Performed By: #### 2 963542, 8666913, 3526053, 0888766, 6224483, 14969690 ####[address] [place] [address] Neutrophils/Leukocytes Auto (Bld) [Pure # fraction] 5.0 E9/L Normal 2.0-7.5 [facility] Comment on above: Order Comment: Order Added by Discern Expert. Performed By: #### 2 727519, 8999083, 1061339, 9298989, 8498171, 38917515 ####[address] [place] [address] BUNon 12-22-2022 Urea nitrogen [Mass/Vol] 21 mg/dL Normal 5-21 [facility] Comment on above: Performed By: #### 2 947396, 3520180, 2150606, 9428015, 8442082, 06986208 ####[address] [place] [address] CBC w/ Auto Diffon 3 Erythrocyte distribution width (RBC) [Ratio] 17.5 % High 10.9-14.2 [facility] Comment on above: Performed By: #### 2 333579, 3900796, 0668354, 9309708, 7658014, 89753175 ####[address] [address] Hematocrit (Bld) [Volume fraction] 21.8 % Low 34.0-46.0 [facility] Comment on above: Performed By: #### 2 582580, 6792408, 9601201, 0130715, 1250968, 26139420 ####[address] [address] Hemoglobin (Bld) [Mass/Vol] 7.2 g/dL Low 12.0-16.0 [facility] Comment on above: Performed By: #### 2 593608, 4961119, 9123318, 2498915, 1995941, 37189620 ####[facility] [address] [place] [address] MCH (RBC) [Entitic mass] 28.2 pg Normal 27.0-34.0 [facility] Comment on above: Performed By: #### 2 135480, 5539397, 6011882, 7557052, 3781996, 03677840 ####[address] [address] MCHC (RBC) [Mass/Vol] 32.9 g/dL Normal 31.4-36.0 [facility] Comment on above: Performed By: #### 2 867177, 3399206, 2645716, 0541791, 1996980, 18532067 ####[facility] [address] [place] [address] MCV (RBC) [Entitic vol] 85.7 fL Normal 80.0-100.0 [facility] Comment on above: Performed By: #### 2 578556, 3173322, 6480834, 1737428, 4010914, 22885801 ####[facility] [address] [place] [address] Platelet mean volume (Bld) [Entitic vol] 7.8 fL Normal 6.4-10.8 [facility] Comment on above: Performed By: #### 2 323385, 6759425, 0304870, 0808359, 0076665, 89879040 ####[facility] [address] [place] [address] Platelets (Bld) [#/Vol] 337.0 E9/L Normal 150.0-500.0 [facility] Comment on above: Performed By: #### 2 282126, 6785027, 7096433, 0813005, 3780844, 63552630 ####[facility] [address] [place] [address] RBC (Bld) [#/Vol] 2.5 E12/L Low 4.3-5.9 [facility] Comment on above: Performed By: #### 2 056611, 2855296, 7497583, 4590325, 7451137, 96011458 ####[facility] [address] [place] [address] WBC corrected for nucl RBC Auto (Bld) [#/Vol] 7.4 E9/L Normal 4.0-11.0 [facility] Comment on above: Performed By: #### 2 206797, 3485341, 4441684, 2809240, 3864668, 33605055 ####[facility] [address] [place] [address] CHEMISTRYOrdered By: SYSTEM SYSTEM on 12-22-2022 Anion gap [Moles/Vol] 5 mmol/L Low 6 - 16 mEq/L [facility] Remisol Chloride [Moles/Vol] 115 mmol/L High 101 - 1 11 mmol/L [facility] Remisol CO2 [Moles/Vol] 23 mmol/L Normal 21 - 31 mmol/L [facility] Remisol Creatinine [Mass/Vol] 0.9 mg/dL Normal 0.5 - 1.3 mg/dL [facility] Remisol GFR/1.73 sq M.predicted among non-blacks MDRD (S/P/Bld) [Vol rate/Area] 70 mL/min/1.73 m2 Normal >=59mL/min/1 .73 m2 [facility] Chem S Comment on above: Interpretive Data: C hronic kidney disease could be indicated at eGFR's of less than 60 mL/min/1.73m2. Kidney failure is indicated at less than 15 mL/min/1.73m2. Potassium [Moles/Vol] 3.7 mmol/L Normal 3.5 - 5.3 mmol/L [facility] Remisol Sodium [Moles/Vol] 139 mmol/L Normal 135 - 145 mmol/L [facility] Remisol Urea nitrogen [Mass/Vol] 21 mg/dL Normal 5 - 21 mg/d L [facility] Remisol Capillary Glucose POCon 11-30 Glucose [Mass/Vol] 124 mg/dL High 55-99 [facility] Comment on above: Result Comment: Fausto CHAUDHARY Performed By: #### 2 [id number] ####[facility] [address] [place] [address] Glucose [Mass/Vol] 126 mg/dL High 55-99 [facility] Comment on above: Result Comment: Fausto CHAUDHARY Performed By: #### 2 [id number] ####[facility] [address] [place] [address] Glucose [Mass/Vol] 153 mg/dL High 55-99 [facility] Comment on above: Performed By: #### 2 38031357 ####[facility] [address] [place] [address] Glucose [Mass/Vol] 294 mg/dL High 55-99 [facility] Comment on above: Result Comment: Fausto CHAUDHARY Performed By: #### 2 [id number] ####[facility] [address] [place] [address] Creatinineon 12-22-2022 Creatinine [Mass/Vol] 0.9 mg/dL Normal 0.5-1.3 [facility] Comment on above: Performed By: #### 2 716287, 1141808, 5232793, 3391833, 3051175, 99971123 ####[facility] [address] [place] [address] HEMATOLOGYOrdered By: SYSTEM SYSTEM on 12-22-2022 Basophils/100 [...] 66.6 % Normal 36.0 - 75.0 % [facility] HemeAutoSS Neutrophils/Leukocytes Auto (Bld) [Pure # fraction] 5.0 E9/L Normal 2.0 - 7.5 E9/L [facility] HemeAutoSS HEMATOLOGYOrdered By: Kirstin King on 12-22-2022 Erythrocyte distribution width (RBC) [Ratio] 17.5 % High 10.9 - 14.2 % [facility]eAutoSS Hematocrit (Bld) [Volume fraction] 21.8 % Low 34.0 - 46.0 % [facility] HemeAutoSS Hemoglobin (Bld) [Mass/Vol] 7.2 g/dL Low 12.0 - 16.0 gm/dL [facility] HemeAutoSS MCH (RBC) [Entitic mass] 28.2 pg Normal 27. 0 - 34.0 pg [facility] HemeAutoSS MCHC (RBC) [...] 7.4 E9/L Normal 4.0 - 11.0 E9/L [facility] HemeAutoSS Lyteson 12-22-2022 Anion gap [Moles/Vol] 5 mmol/L Low 6-16 [facility] Comment on above: Performed By: #### 2 366856, 5767733, 6132713, 5705779, 2977414, 45879290 ####[facility] [address] [place] [address] Chloride [Moles/Vol] 115 mmol/L High 101-111 [facility] Comment on above: Performed By: #### 2 428802, 2095935, 4568500, 5403495, 9858637, 03912138 ####[facility] [address] [place] [address] CO2 [Moles/Vol] 23 mmol/L Normal 21-31 [facility] Comment on above: Performed By: #### 2 206063, 2493328, 5290495, 0220096, 3956130, 68689608 ####[facility] [address] [place] [address] Potassium [Moles/Vol] 3.7 mmol/L Normal 3.5-5.3 [facility] Comment on above: Performed By: #### 2 822172, 6762710, 6011773, 6757515, 2987606, 89279173 ####[facility] [address] [place] [address] Sodium [Moles/Vol] 139 mmol/L Normal 135-145 [facility] Comment on above: Performed By: #### 2 229527, 1243587, 1219414, 3302109, 4211453, 84904178 ####[facility] [address] [place] [address] Progress Note-Physicianon Progress Note-Physician Normal [facility] Comment on above: Result Comment: Elec tronically Signed By: Joaquim Rice DO\.br\Date and Time Signed: 12/22/22 20:14 EDT Progress Note-Physician Normal F [facility] Comment on above: Result Comment: Elec tronically Signed By: Cordell Grossman DO\.br\Date and Time Signed: 12/22/22 15:53 EDT eGFRon 12-22-2022 GFR/1.73 sq M.predicted among non-blacks MDRD (S/P/Bld) [Vol rate/Area] 70 mL/min/1.73 m2 Normal >=59 [facility] Comment on above: Order Comment: Order added by Discern Expert. Result Comment: Field Professional marquez kidney disease could be indicated at eGFR's of less than 60 mL/min/1.73m2. Kidney failure is indicated at less than 15 mL/min/1.73m2. Performed By: #### 2 219057, 6128427, 2375076, 6970783, 2689802, 61628982 ####[facility] [address] [place] [address] Auto Diffon 12-21-2022 Basophils/100 WBC (Bld) 0.1 % Normal 0.0-2.0 [facility] Comment on above: Order Comment: Order Added by Discern Expert. Performed By: #### 2 072844, 1610111, 8133810, 6930705, 7167740, 55301782 ####[facility] [address] [place] [address] Basophils/Leukocytes Auto (Bld) [Pure # fraction] 0.0 E9/L Normal 0.0-0.2 [facility] Comment on above: Order Comment: Order Added by Discern Expert. Performed By: #### 2 173617, 7827524, 0851464, 4692498, 7716485, 27533753 ####[address] [place] [address] Eosinophils/100 WBC (Bld) 0.0 % Normal 0.0-8.0 [facility] Comment on above: Order Comment: Order Added by Discern Expert. Performed By: #### 2 777993, 7979527, 3285780, 0591761, 5777661, 87818860 ####[address] [address] Eosinophils/Leukocytes Auto (Bld) [Pure # fraction] 0.0 E9/L Normal 0.0-0.5 [facility] Comment on above: Order Comment: Order Added by Discern Expert. Performed By: #### 2 871867, 7512036, 9248617, 8480523, 5704186, 78207650 ####[address] [address] Lymphocytes/100 WBC (Bld) 6.5 % Low 14.0-50.0 [facility] Comment on above: Order Comment: Order Added by Discern Expert. Performed By: #### 2 634088, 9902705, 8646652, 2670482, 7205312, 60396431 ####[address] [address] Lymphocytes/Leukocytes Auto (Bld) [Pure # fraction] 0.4 E9/L Low 1.0-4.0 [facility] Comment on above: Order Comment: Order Added by Discern Expert. Performed By: #### 2 685226, 5312056, 9179553, 8052016, 8411193, 46260358 ####[address] [address] Monocytes/100 WBC (Bld) 8.7 % Normal 4.0-14.0 [facility] Comment on above: Order Comment: Order Added by Discern Expert. Performed By: #### 2 321822, 6863606, 1993933, 9295318, 7664055, 15349375 ####[facility] [address] [place] [address] Monocytes/Leukocytes Auto (Bld) [Pure # fraction] 0.6 E9/L Normal 0.2-1.0 [facility] Comment on above: Order Comment: Order Added by Discern Expert. Performed By: #### 2 440426, 2318948, 2795565, 9652383, 9081535, 50107296 ####[address] [place] [address] Neutrophils/100 WBC (Bld) 84.7 % High 36.0-75.0 [facility] Comment on above: Order Comment: Order Added by Discern Expert. Performed By: #### 2 700800, 2119979, 0862643, 6048602, 2855606, 58828199 ####[facility] [address] [place] [address] Neutrophils/Leukocytes Auto (Bld) [Pure # fraction] 5.8 E9/L Normal 2.0-7.5 [facility] Comment on above: Order Comment: Order Added by Discern Expert. Performed By: #### 2 314389, 5539980, 5143753, 5919841, 8438561, 01793361 ####[facility] [address] [place] [address] BUNon 12-21-2022 Urea nitrogen [Mass/Vol] 22 mg/dL High 5-21 [facility] Comment on above: Performed By: #### 2 861716, 8817672, 5146498, 2598165, 3901441, 38936512 ####[facility] [address] [place] [address] CBC w/ Auto Diffon Erythrocyte distribution width (RBC) [Ratio] 17.9 % High 10.9-14.2 [facility] Comment on above: Performed By: #### 2 479179, 5310217, 6664913, 7907082, 1869360, 04206924 ####[facility] [address] [place] [address] Hematocrit (Bld) [Volume fraction] 23.9 % Low 34.0-46.0 [facility] Comment on above: Performed By: #### 2 971996, 4611933, 2078469, 7542652, 3219551, 26463725 ####[facility] [address] [place] [address] Hemoglobin (Bld) [Mass/Vol] 7.7 g/dL Low 12.0-16.0 [facility] Comment on above: Performed By: #### 2 266594, 7732528, 1267452, 0074174, 0351690, 96322773 ####[address] [address] MCH (RBC) [Entitic mass] 28.2 pg Normal 27.0-34.0 [facility] Comment on above: Performed By: #### 2 392925, 0106474, 8618176, 9166325, 6552084, 38599479 ####[address] [address] MCHC (RBC) [Mass/Vol] 32.3 g/dL Normal 31.4-36.0 [facility] Comment on above: Performed By: #### 2 597404, 1584247, 7903037, 6328369, 1319201, 90490450 ####[address] [place] [address] MCV (RBC) [Entitic vol] 87.1 fL Normal 80.0-100.0 [facility] Comment on above: Performed By: #### 2 854201, 3874324, 8723641, 5694315, 8170325, 40723557 ####[address] [address] Platelet mean volume (Bld) [Entitic vol] 8.1 fL Normal 6.4-10.8 [facility] Comment on above: Performed By: #### 2 423025, 8172255, 9874555, 1683745, 2570187, 36123720 ####[facility] [address] [place] [address] Platelets (Bld) [#/Vol] 320.0 E9/L Normal 150.0-500.0 [facility] Comment on above: Performed By: #### 2 334792, 1954302, 6174017, 2587562, 2251754, 78845802 ####[facility] [address] [place] [address] RBC (Bld) [#/Vol] 2.7 E12/L Low 4.3-5.9 [facility] Comment on above: Performed By: #### 2 070772, 0339015, 2211499, 4579642, 9664121, 60015082 ####[facility] [address] [place] [address] WBC corrected for nucl RBC Auto (Bld) [#/Vol] 6.8 E9/L Normal 4.0-11.0 [facility] Comment on above: Performed By: #### 2 479369, 3647601, 6648728, 2497569, 5325309, 53145758 ####[facility] [address] [place] [address] CHEMISTRYOrdered By: SYSTEM SYSTEM on 12-21-2022 Anion gap [Moles/Vol] 7 mmol/L Normal 6 - 16 mEq/L [facility] Remisol Chloride [Moles/Vol] 112 mmol/L High 101 - 1 11 mmol/L [facility] Remisol CO2 [Moles/Vol] 24 mmol/L Normal 21 - 31 mmol/L [facility] Remisol Creatinine [Mass/Vol] 1.1 mg/dL Normal 0.5 - 1.3 mg/dL [facility] Remisol GFR/1.73 sq M.predicted among non-blacks MDRD (S/P/Bld) [Vol rate/Area] 55 mL/min/1.73 m2 Low >=59mL/min/1 .73 m2 [facility] Chem S Comment on above: Interpretive Data: C hronic kidney disease could be indicated at eGFR's of less than 60 mL/min/1.73m2. Kidney failure is indicated at less than 15 mL/min/1.73m2. Potassium [Moles/Vol] 5.2 mmol/L Normal 3.5 - 5.3 mmol/L [facility] Remisol Sodium [Moles/Vol] 138 mmol/L Normal 135 - 145 mmol/L [facility] Remisol Urea nitrogen [Mass/Vol] 22 mg/dL High 5 - 21 mg/d L [facility] [place] Capillary Glucose POCon 11-30 Glucose [Mass/Vol] 288 mg/dL High 55-99 [facility] Comment on above: Performed By: #### 2 [id number] ####[facility] [address] [place] [address] Glucose [Mass/Vol] 323 mg/dL High 55[address] [place] [address] Comment on above: Result Comment: Fausto rubi RN/ Performed By: #### 2 [id number] ####[facility] [address] [place] [address] Glucose [Mass/Vol] 353 mg/dL High [address] [place] [address] Comment on above: Performed By: #### 2 81817915 ####[facility] [address] [place] [address] Glucose [Mass/Vol] 281 mg/dL High [address] [place] [address] Comment on above: Result Comment: Fausto CHAUDHARY Performed By: #### 2 [id number] ####[facility] [address] [place] [address] Creatinineon 12-21-2022 Creatinine [Mass/Vol] 1.1 mg/dL Normal 0.5-1.3 [facility] Comment on above: Performed By: #### 2 237486, 1805668, 6268994, 3112785, 6089563, 11202763 ####[facility] [address] [place] [address] HEMATOLOGYOrdered By: SYSTEM SYSTEM on 12-21-2022 Basophils/100 [...] 17.9 % High 10.9 - 14.2 % [facility]eAutoSS Hematocrit (Bld) [Volume fraction] 23.9 % Low 34.0 - 46.0 % [facility]Auto[facility] Hemoglobin (Bld) [Mass/Vol] 7.7 g/dL Low 12.0 - 16.0 gm/dL [facility]eAuto[facility] MCH (RBC) [Entitic mass] 28.2 pg Normal 27. 0 - 34.0 pg [facility]Auto[facility] MCHC (RBC) [Mass/Vol] 32.3 g/dL Normal 31.4 - 36.0 gm/dL [facility]Auto[facility] MCV (RBC) [Entitic vol] 87.1 fL Normal 80.0 - 100.0 fL [facility]eAutoSS Platelet mean volume (Bld) [Entitic vol] 8.1 fL Normal 6.4 - 10.8 fL [facility] HemeAutoSS Platelets (Bld) [#/Vol] 320.0 E9/L Normal 150. 0 - 500.0 E9/L [facility] HemeAutoSS RBC (Bld) [#/Vol] 2.7 E12/L Low 4.3 - 5.9 E12/L [facility] HemeAutoSS WBC corrected for nucl RBC Auto (Bld) [#/Vol] 6.8 E9/L Normal 4.0 - 11.0 E9/L [facility] HemeAutoSS Interdisciplinary Note - Timo n 12-21-2022 Interdisciplinary Note - OT Normal [facility] Interdisciplinary Note - PTo n 12-21-2022 Interdisciplinary Note - PT Normal [facility] Lyteson 12-21-2022 Anion gap [Moles/Vol] 7 mmol/L Normal 6-16 [facility] Comment on above: Performed By: #### 2 365712, 5018652, 3511767, 8866979, 2559180, 59476399 ####[facility] [address] [place] [address] Chloride [Moles/Vol] 112 mmol/L High 101-111 [facility] Comment on above: Performed By: #### 2 474213, 7883757, 0918928, 5981147, 7977554, 51576614 ####[facility] [address] [place] [address] CO2 [Moles/Vol] 24 mmol/L Normal 21-31 [facility] Comment on above: Performed By: #### 2 330487, 9775159, 7240322, 5834937, 6446809, 35511789 ####[facility] [address] [place] [address] Potassium [Moles/Vol] 5.2 mmol/L Normal 3.5-5.3 [facility] Comment on above: Performed By: #### 2 529397, 3036590, 7455108, 4600194, 6557504, 73659690 ####[facility] [address] [place] [address] Sodium [Moles/Vol] 138 mmol/L Normal 135-145 [facility] Comment on above: Performed By: #### 2 920663, 0424357, 9559230, 7054306, 0947858, 12585457 ####[facility] [address] [place] [address] Operative Reporton 3 Operative Report Normal [facility] Comment on above: Result Comment: Elec tronically Signed By: Joaquim Rice DO\.br\Date and Time Signed: 12/21/22 14:02 EDT Progress Note-Physicianon Progress Note-Physician Normal [facility] Comment on above: Result Comment: Elec tronically Signed By: MD Martinez Ahmad F\.br\Date and Time Signed: 12/21/22 16:59 EDT Progress Note-Physician Normal [facility] Comment on above: Result Comment: Elec tronically Signed By: MD Martinez Ahmad F\.br\Date and Time Signed: 12/21/22 16:52 EDT Progress Note-Physician Normal [facility] Comment on above: Result Comment: Elec tronically Signed By: Joaquim Rice DO\.br\Date and Time Signed: 12/21/22 14:41 EDT Progress Note-Physician Normal [facility] Comment on above: Result Comment: Elec tronically Signed By: Cordell Grossman DO\.br\Date and Time Signed: 12/21/22 11:13 EDT eGFRon 12-21-2022 GFR/1.73 sq M.predicted among non-blacks MDRD (S/P/Bld) [Vol rate/Area] 55 mL/min/1.73 m2 Low >=59 [facility] Comment on above: Order Comment: Order added by Discern Expert. Result Comment: Field Professional marquez kidney disease could be indicated at eGFR's of less than 60 mL/min/1.73m2. Kidney failure is indicated at less than 15 mL/min/1.73m2. Performed By: #### 2 [id number], [id number] ####[id number] [place] [address] .Manual Abson 12-20-2022 Basophils/Leukocytes Manual cnt (Bld) [Pure # fraction] 0.0 E9/L Normal 0.0-0.2 [facility] Comment on above: Performed By: #### 2 [id number] ####[address] [address] Eosinophils/Leukocytes Manual cnt (Bld) [Pure # fraction] 0.1 E9/L Normal 0.0-0.5 [facility] Comment on above: Performed By: #### 2 [id number], [id number], [id number] ####[address] [address] Lymphocytes/Leukocytes Manual cnt (Bld) [Pure # fraction] 1.0 E9/L Normal 1.0-4.0 [facility] Comment on above: Performed By: #### 2 919396, 34489881, 6240641, 4242924, 76583811, 0005218, 87899593 ####[address] [address] Monocytes/Leukocytes Manual cnt (Bld) [Pure # fraction] 0.5 E9/L Normal 0.2-1.0 [facility] Comment on above: Performed By: #### 2 782305, 18136114, 6802174, 5298112, 96331212, 2399052, 10949685 ####[address] [address] Neutrophils/Leukocytes Auto (Bld) [Pure # fraction] 4.2 E9/L Normal 2.0-7.5 [facility] Comment on above: Performed By: #### 2 801909, 71031848, 1627367, 6107781, 56631300, 8369375, 13185839 ####[facility] [address] [place] [address] ABO/Rhon 12-20-2022 ABO/Rh Positive Invalid Interpretation Code [facility] Comment on above: Performed By: #### 2 687941, 90129280, 44254840, 92028723 ####[facility] [address] [place] [address] ABO/Rh History Checkon 12-20 ABO/Rh History Check Verified Hx Blood Type Normal [facility] Comment on above: Performed By: #### 2 328141, 50552146, 23161044, 09776212 ####[facility] [address] [place] [address] ABSCon 12-20-2022 ABSC Gel Interp Negative Normal [facility] Comment on above: Performed By: #### 2 296984, 80272902, 54769215, 53386132 ####[facility] [address] [place] [address] Auto Diffon 12-20-2022 Basophils/100 WBC (Bld) 0.1 % Normal 0.0-2.0 [facility] Comment on above: Order Comment: Order Added by Discern Expert. Performed By: #### 2 057993, 7976795, 1648354, 6304770, 43327600 ####[address] [address] Basophils/Leukocytes Auto (Bld) [Pure # fraction] 0.0 E9/L Normal 0.0-0.2 [facility] Comment on above: Order Comment: Order Added by Discern Expert. Performed By: #### 2 209692, 3604577, 1347936, 8723161, 57512963 ####[address] [place] [address] Eosinophils/100 WBC (Bld) 0.2 % Normal 0.0-8.0 [facility] Comment on above: Order Comment: Order Added by Discern Expert. Performed By: #### 2 825880, 7352459, 4329175, 3831870, 32527025 ####[address] [place] [address] Eosinophils/Leukocytes Auto (Bld) [Pure # fraction] 0.0 E9/L Normal 0.0-0.5 [facility] Comment on above: Order Comment: Order Added by Discern Expert. Performed By: #### 2 599659, 6403185, 8839009, 7531520, 07730853 ####[address] [place] [address] Lymphocytes/100 WBC (Bld) 3.8 % Low 14.0-50.0 [facility] Comment on above: Order Comment: Order Added by Katherine Expert. Performed By: #### 2 760099, 6364699, 3457569, 5323685, 27474453 ####[address] [address] Lymphocytes/Leukocytes Auto (Bld) [Pure # fraction] 0.4 E9/L Low 1.0-4.0 [facility] Comment on above: Order Comment: Order Added by Katherine Expert. Performed By: #### 2 994879, 7327884, 2388357, 9391276, 09624144 ####[address] [place] [address] Monocytes/100 WBC (Bld) 6.3 % Normal 4.0-14.0 [facility] Comment on above: Order Comment: Order Added by Katherine Expert. Performed By: #### 2 642121, 5232506, 8479947, 2003695, 14327102 ####[address] [address] Monocytes/Leukocytes Auto (Bld) [Pure # fraction] 0.6 E9/L Normal 0.2-1.0 [facility] Comment on above: Order Comment: Order Added by Katherine Expert. Performed By: #### 2 105397, 8153653, 4824585, 3638507, 94210476 ####[facility] [address] [place] [address] Neutrophils/100 WBC (Bld) 89.6 % High 36.0-75.0 [facility] Comment on above: Order Comment: Order Added by Discern Expert. Performed By: #### 2 278864, 7048038, 8777114, 9109432, 81983754 ####[facility] [address] [place] [address] Neutrophils/Leukocytes Auto (Bld) [Pure # fraction] 8.7 E9/L High 2.0-7.5 [facility] Comment on above: Order Comment: Order Added by Discern Expert. Performed By: #### 2 485467, 4293144, 0033532, 8539113, 63075057 ####[address] [place] [address] BLOOD BANKOrdered By: Kirstin King on 12-20-2022 ABO/Rh Interp Positive Invalid Interpretation Code [facility] BB Subsection ABSC Gel Interp Negative (12/20/22 12:15 PM) Normal [facility] BB Subsection BMPon 12-20-2022 Anion gap [Moles/Vol] 10 mmol/L Normal 6-16 [facility] Comment on above: Performed By: #### 2 834352, 6932304, 6174773, 5361196, 18582172 ####[facility] [address] [place] [address] Calcium [Mass/Vol] 8.4 mg/dL Low 8.9-11.1 [facility] Comment on above: Performed By: #### 2 067795, 1008301, 5948527, 1223887, 69025792 ####[facility] [address] [place] [address] Chloride [Moles/Vol] 109 mmol/L Normal 101-111 [facility] Comment on above: Performed By: #### 2 397055, 7529488, 3262527, 4452851, 63399523 ####[facility] [address] [place] [address] CO2 [Moles/Vol] 23 mmol/L Normal 21-31 [facility] Comment on above: Performed By: #### 2 271656, 0625954, 3846932, 7079774, 37031066 ####[facility] [address] [place] [address] Creatinine [Mass/Vol] 0.7 mg/dL Normal 0.5-1.3 [facility] Comment on above: Performed By: #### 2 316387, 5866177, 9334859, 5669433, 21981480 ####[facility] [address] [place] [address] Glucose [Mass/Vol] 242 mg/dL High 55-199 [facility] Comment on above: Result Comment: If t his glucose result represents a fasting glucose, interpretation should refer to the following reference range: 55-99 mg/dL Performed By: #### 2 068315, 5867231, 1599279, 9656935, 12650228 ####[facility] [address] [place] [address] Potassium [Moles/Vol] 4.7 mmol/L Normal 3.5-5.3 [facility] Comment on above: Performed By: #### 2 955220, 0164405, 5783947, 1539465, 25945114 ####[facility] [address] [place] [address] Sodium [Moles/Vol] 137 mmol/L Normal 135-145 [facility] Comment on above: Performed By: #### 2 152288, 9905615, 5395666, 3975061, 98546172 ####[facility] [address] [place] [address] Urea nitrogen [Mass/Vol] 12 mg/dL Normal 5-21 [facility] Comment on above: Performed By: #### 2 684347, 7229281, 7598484, 8088514, 48640601 ####[facility] [address] [place] [address] Urea nitrogen/Creatinine [Mass ratio] 17 No Units Normal 10-20 [facility] Comment on above: Performed By: #### 2 488491, 0917977, 9802533, 5335761, 94145096 ####[facility] [address] [place] [address] Anion gap [Moles/Vol] 7 mmol/L Normal 6-16 [facility] Comment on above: Performed By: #### 2 009781, 12915207, 2663269, 9037349, 31869284, 2943177, 57320199 ####[facility] [address] [place] [address] Calcium [Mass/Vol] 8.4 mg/dL Low 8.9-11.1 [facility] Comment on above: Performed By: #### 2 938115, 52634734, 5139211, 1921565, 28525149, 0052839, 13992405 ####[facility] [address] [place] [address] Chloride [Moles/Vol] 112 mmol/L High 101-111 [facility] Comment on above: Performed By: #### 2 024452, 01800441, 9486685, 0981416, 48307524, 6115300, 38273814 ####[facility] [address] [place] [address] CO2 [Moles/Vol] 24 mmol/L Normal 21-31 [facility] Comment on above: Performed By: #### 2 464188, 78037455, 0894555, 9192496, 19727077, 6469764, 54172438 ####[facility] [address] [place] [address] Creatinine [Mass/Vol] 0.7 mg/dL Normal 0.5-1.3 [facility] Comment on above: Performed By: #### 2 581241, 89675685, 7030494, 1031389, 28872550, 1674333, 05805364 ####[facility] [address] [place] [address] Glucose [Mass/Vol] 166 mg/dL Normal 55-199 [facility] Comment on above: Result Comment: If t his glucose result represents a fasting glucose, interpretation should refer to the following reference range: 55-99 mg/dL Performed By: #### 2 240939, 23645617, 2127094, 0047522, 91933169, 8000823, 33706225 ####[facility] [address] [place] [address] Potassium [Moles/Vol] 3.9 mmol/L Normal 3.5-5.3 [facility] Comment on above: Performed By: #### 2 163621, 93329132, 5365046, 1260544, 02019261, 8333671, 28588760 ####[facility] [address] [place] [address] Sodium [Moles/Vol] 139 mmol/L Normal 135-145 [facility] Comment on above: Performed By: #### 2 100148, 86389789, 4502617, 6350995, 19256099, 2278664, 19746374 ####[facility] [address] [place] [address] Urea nitrogen [Mass/Vol] 14 mg/dL Normal 5-21 [facility] Comment on above: Performed By: #### 2 466338, 84625550, 8629411, 9755350, 10958397, 8303160, 77022496 ####[facility] [address] [place] [address] Urea nitrogen/Creatinine [Mass ratio] 20 No Units Normal 10-20 [facility] Comment on above: Performed By: #### 2 838626, 14956191, 3259238, 3588812, 96525285, 4346567, 89896153 ####[facility] [address] [place] [address] Blood Bank ID#on 12-20-2022 BBID# [id number] Invalid Interpretation Code [facility] Comment on above: Performed By: #### 2 371744, 32637990, 17154324, 29146654 ####[address] [place] [address] CBC w/ Auto Diffon 3 Erythrocyte distribution width (RBC) [Ratio] 17.7 % High 10.9-14.2 [facility] Comment on above: Performed By: #### 2 057812, 2815431, 8280031, 7074823, 52809178 ####[address] [address] Hematocrit (Bld) [Volume fraction] 26.3 % Low 34.0-46.0 [facility] Comment on above: Performed By: #### 2 891814, 9072851, 0817236, 4719629, 32275020 ####[address] [address] Hemoglobin (Bld) [Mass/Vol] 8.5 g/dL Low 12.0-16.0 [facility] Comment on above: Performed By: #### 2 522983, 5055468, 3807408, 7946537, 26159946 ####[address] [address] MCH (RBC) [Entitic mass] 28.1 pg Normal 27.0-34.0 [facility] Comment on above: Performed By: #### 2 184520, 5503152, 7679956, 4706457, 94369209 ####[address] [address] MCHC (RBC) [Mass/Vol] 32.5 g/dL Normal 31.4-36.0 [facility] Comment on above: Performed By: #### 2 090482, 3281415, 6541507, 4513865, 33921641 ####[address] [address] MCV (RBC) [Entitic vol] 86.4 fL Normal 80.0-100.0 [facility] Comment on above: Performed By: #### 2 066487, 7225725, 3568901, 4526466, 82514138 ####[address] [place] [address] Platelet mean volume (Bld) [Entitic vol] 7.4 fL Normal 6.4-10.8 [facility] Comment on above: Performed By: #### 2 692225, 0362177, 4664966, 9819862, 60661040 ####[address] [address] Platelets (Bld) [#/Vol] 362.0 E9/L Normal 150.0-500.0 [facility] Comment on above: Performed By: #### 2 916272, 9325510, 8766322, 6587009, 25837857 ####[address] [address] RBC (Bld) [#/Vol] 3.0 E12/L Low 4.3-5.9 [facility] Comment on above: Performed By: #### 2 568033, 4623960, 1716855, 6832543, 13450480 ####[address] [address] WBC corrected for nucl RBC Auto (Bld) [#/Vol] 9.8 E9/L Normal 4.0-11.0 [facility] Comment on above: Performed By: #### 2 402863, 2380467, 5205029, 4507499, 97421663 ####[address] [address] Erythrocyte distribution width (RBC) [Ratio] 14.9 % High 10.9-14.2 [facility] Comment on above: Performed By: #### 2 773309, 95688175, 5704458, 1815960, 91536625, 6990114, 79869424 ####[address] [address] Hematocrit (Bld) [Volume fraction] 22.1 % Low 34.0-46.0 [facility] Comment on above: Performed By: #### 2 528994, 83451647, 0638855, 2593220, 90773626, 3677365, 82173892 ####[facility] [address] [place] [address] Hemoglobin (Bld) [Mass/Vol] 7.5 g/dL Low 12.0-16.0 [facility] Comment on above: Performed By: #### 2 132468, 45540303, 3811917, 1218136, 58555438, 9505909, 89573177 ####[facility] [address] [place] [address] MCH (RBC) [Entitic mass] 29.7 pg Normal 27.0-34.0 [facility] Comment on above: Performed By: #### 2 534956, 31873208, 7771877, 3495935, 67970656, 9184098, 11643087 ####[facility] [address] [place] [address] MCHC (RBC) [Mass/Vol] 33.9 g/dL Normal 31.4-36.0 [facility] Comment on above: Performed By: #### 2 227044, 63617005, 6077831, 0299552, 77511173, 2351359, 17771095 ####[address] [place] [address] MCV (RBC) [Entitic vol] 87.6 fL Normal 80.0-100.0 [facility] Comment on above: Performed By: #### 2 389315, 75855025, 1136227, 3840104, 18199079, 1144283, 07684454 ####[facility] [address] [place] [address] Platelet mean volume (Bld) [Entitic vol] 8.1 fL Normal 6.4-10.8 [facility] Comment on above: Performed By: #### 2 163193, 82633076, 6269985, 8944189, 12145858, 9113157, 29849625 ####[facility] [address] [place] [address] Platelets (Bld) [#/Vol] 346.0 E9/L Normal 150.0-500.0 [facility] Comment on above: Performed By: #### 2 942872, 67026872, 6753871, 7172616, 11182244, 0717227, 39773736 ####[facility] [address] [place] [address] RBC (Bld) [#/Vol] 2.5 E12/L Low 4.3-5.9 [facility] Comment on above: Performed By: #### 2 055636, 28672313, 8627416, 9137275, 78739647, 2131076, 75758602 ####[facility] [address] [place] [address] WBC corrected for nucl RBC Auto (Bld) [#/Vol] 5.9 E9/L Normal 4.0-11.0 [facility] Comment on above: Performed By: #### 2 888137, 49916107, 8312473, 4610453, 49254122, 7550622, 65442201 ####[facility] [address] [place] [address] CHEMISTRYOrdered By: SYSTEM SYSTEM on 12-20-2022 Calcium [Mass/Vol] 8.4 mg/dL Low 8.9 - 11. 1 mg/dL FT Remisol CK [Catalytic activity/Vol] 57 [iU]/d Normal 14 - 261 Int._Unit/L [facility] Remisol Glucose [Mass/Vol] 242 mg/dL High 55 - 199 mg/dL [facility] Remisol Comment on above: Interpretive Data: I f this glucose result represents a fasting glucose, interpretation should refer to the following reference range: 55-99 mg/dL Urea nitrogen/Creatinine [Mass ratio] 17 mg/mg Normal 10 - 20 [facility] Remisol Calcium [Mass/Vol] 8.4 mg/dL Low 8.9 - 11. 1 mg/dL [facility] Remisol CRP [Mass/Vol] 14.3 mg/dL High <=1.9mg/dL [facility] Remis ol Glucose [Mass/Vol] 166 mg/dL Normal 55 - 199 mg/dL [facility] Remisol Comment on above: Interpretive Data: I f this glucose result represents a fasting glucose, interpretation should refer to the following reference range: 55-99 mg/dL Urea nitrogen/Creatinine [Mass ratio] 20 mg/mg Normal 10 - 20 [facility] Remisol CKon 12-20-2022 CK [Catalytic activity/Vol] 57 Int._Unit/L Normal 14-261 [facility] Comment on above: Performed By: #### 2 495282, 2149257, 9276801, 2218473, 48095243 ####[facility] [address] [place] [address] CRPon 12-20-2022 CRP [Mass/Vol] 14.3 mg/dL High <=1.9 [facility] Comment on above: Performed By: #### 2 192719, 91075389, 3201290, 1703144, 38009073, 6555564, 01821369 ####[facility] [address] [place] [address] Capillary Glucose POCon 11-30 Glucose [Mass/Vol] 134 mg/dL High 55-99 [facility] Comment on above: Result Comment: Fausto CHAUDHARY Performed By: #### 2 10403394 ####[facility] [address] [place] [address] Glucose [Mass/Vol] 166 mg/dL High 55-99 [facility] Comment on above: Result Comment: Fausto CHAUDHARY Performed By: #### 2 24389094 ####[facility] [address] [place] [address] Glucose [Mass/Vol] 237 mg/dL High 55-99 [facility] Comment on above: Performed By: #### 2 06837335 ####[facility] [address] [place] [address] Glucose [Mass/Vol] 307 mg/dL High 55-99 [facility] Comment on above: Result Comment: Fausto rubi RN/ Performed By: #### 2 79422450 ####[facility] [address] [place] [address] Consent for Treatmenton 11-30 Consent for Treatment [id number]:127 Normal [facility] Consent for Treatment [id number]:127 Normal [facility] Consultation Noteon 12-21-19 Consultation Note Normal [facility] Comment on above: Result Comment: Elec tronically Signed By: Cordell Grossman DObr\Date and Time Signed: 12/20/22 14:36 EDT HEMATOLOGYOrdered [...] E9/L Normal 0.0 - 0.5 E9/L [facility] HemeManSS Lymphocytes/100 WBC (Bld) 17 % Normal 14 - 50 % [facility] HemeManSS Lymphocytes/Leukocytes Manual cnt (Bld) [Pure # fraction] 1.0 E9/L Normal 1.0 - 4.0 E9/L [facility] HemeManSS Monocytes/100 WBC (Bld) 9 % Normal 4 - 14 % [facility] HemeManSS Monocytes/Leukocytes Manual cnt (Bld) [Pure # fraction] 0.5 E9/L Normal 0.2 - 1.0 E9/L [facility] HemeManSS Neutrophils/Leukocytes Auto (Bld) [Pure # fraction] 4.2 E9/L Normal 2.0 - 7.5 E9/L [facility] HemeManSS Sed Rate Automated 87 mm/h High 0 - 34 mm/hr [facility] HemeAutoSS Segmented neutrophils/100 WBC (Bld) 72 % Normal 36 - 75 % [facility], 1928–1983 Variant lymphocytes LM Ql (Bld) 0 % Normal <=0% [facility] Correspondence Off iceon 12-20-2022 Insurance Correspondence Office [id number]#[id number]:127 Normal [facility] Interdisciplinary Note - Hardeep e Manageron 12-20-2022 Interdisciplinary Note - Outside Plant Engineer Normal [facility] Comment on above: Result Comment: Elec tronically Signed By: Radha Prabhakar\.br\Date and Time Signed: 12/20/22 13:36 EDT Main OR Intraoperative Recor don 12-20-2022 Main OR Intraoperative Record Normal [facility] Main OR PACU I Recordon 11-30 Main OR PACU I Record Normal [facility] Main OR Preoperative Recordo n 12-20-2022 Main OR Preoperative Record Normal [facility] Manual Diffon 12-20-2022 Band form neutrophils/100 WBC (Bld) 0 % Normal 0-10 [facility] Comment on above: Order Comment: Order Added by Discern Expert. Performed By: #### 2 261349, 16524907, 8793057, 7019602, 24218176, 3309681, 15596533 ####[facility] [address] [place] [address] Basophils/100 WBC (Bld) 0 % Normal 0-2 [facility] Comment on above: Order Comment: Order Added by Discern Expert. Performed By: #### 2 346221, 22209889, 7611338, 4098976, 24710003, 1073390, 15857269 ####[facility] [address] [place] [address] Eosinophils/100 WBC (Bld) 2 % Normal 0-8 [facility] Comment on above: Order Comment: Order Added by Discern Expert. Performed By: #### 2 916856, 87705180, 2063650, 6918724, 37177052, 5734343, 36163793 ####[facility] [address] [place] [address] Lymphocytes/100 WBC (Bld) 17 % Normal 14-50 [facility] Comment on above: Order Comment: Order Added by Discern Expert. Performed By: #### 2 037829, 30548030, 1618558, 1893582, 59655098, 7248933, 67280691 ####[facility] [address] [place] [address] Monocytes/100 WBC (Bld) 9 % Normal 4-14 [facility] Comment on above: Order Comment: Order Added by Discern Expert. Performed By: #### 2 288600, 51255792, 4093937, 7926502, 62622798, 0219755, 20044369 ####[facility] [address] [place] [address] Segmented neutrophils/100 WBC (Bld) 72 % Normal 36-75 [facility] Comment on above: Order Comment: Order Added by Discern Expert. Performed By: #### 2 091981, 06849284, 9462684, 2277646, 06550438, 7619245, 43085390 ####[facility] [address] [place] [address] Variant lymphocytes LM Ql (Bld) 0 % Normal <=0 [facility] Comment on above: Order Comment: Order Added by Discern Expert. Performed By: #### 2 524005, 10322362, 0958002, 7167970, 13340060, 4007702, 06282070 ####[facility] [address] [place] [address] Message from Medicareon 11-30 Message from Medicare .. [id number]#1.00CD:127 Normal [facility] Message from Medicare . [id number]#1.00CD:127 Normal [facility] Comment on above: Other Comment: forgo t to scan the back of it Monitor Recordon 12-20-2022 Monitor Record [id number]#[id number]:127 Normal [facility] Monitor Record [id number]#1.00CD:127 Normal [facility] No Panel InformationOrdered By: Pita Butterfield on 12-20-2022 GS 2+ White Blood Cells 1+ Gram Positive Rods Occassional crystals seen on the slide [facility] Wound Culture 1+ Gram Positive Rods resembling diphtheroids [facility] GS 1+ White Blood Cells 2+ Gram Positive Rods Occassional crystals seen on the slide [facility] Wound Culture 1+ Gram Positive Rods resembling diphtheroids [facility] RCOon 12-20-2022 # of Units 1 Invalid Interpretation Code [facility] Comment on above: Order Comment: Blood product ready and called to STACIE _ at _12/20/2022 14:43:34 EDT by amh_. Performed By: #### 1 8391968 ####[facility] [address] [place] [address] Date Required 20221220 Invalid Interpretation Code [facility] Comment on above: Order Comment: Blood product ready and called to STACIE _ at _12/20/2022 14:43:34 EDT by amh_. Performed By: #### 1 0085243 ####[facility] [address] [place] [address] Order to Transfuse Yes Normal [facility] Comment on above: Order Comment: Blood product ready and called to STACIE _ at _12/20/2022 14:43:34 EDT by amh_. Performed By: #### 1 1150542 ####[facility] [address] [place] [address] Product Type None Required Invalid Interpretation Code [facility] Comment on above: Order Comment: Blood product ready and called to STACIE _ at _12/20/2022 14:43:34 EDT by amh_. Performed By: #### 1 0557298 ####[facility] [address] [place] [address] Sed Rate Automatedon 023 Sed Rate Automated 87 mm/hr High 0-34 [facility] Comment on above: Performed By: #### 2 183386, 53522705, 5132549, 0273506, 67070829, 2244902, 52591654 ####[facility] [address] [place] [address] XR Hip 1 View Right + Pelvis on 12-20-2022 XR Hip 1 View Right + Pelvis Normal [facility] eGFRon 12-20-2022 GFR/1.73 sq M.predicted among non-blacks MDRD (S/P/Bld) [Vol rate/Area] 94 mL/min/1.73 m2 Normal >=59 [facility] Comment on above: Order Comment: Order added by Discern Expert. Result Comment: Field Professional marquez kidney disease could be indicated at eGFR's of less than 60 mL/min/1.73m2. Kidney failure is indicated at less than 15 mL/min/1.73m2. Performed By: #### 2 521750, 6359157, 5867811, 6495587, 26725351 ####[facility] [address] [place] [address] GFR/1.73 sq M.predicted among non-blacks MDRD (S/P/Bld) [Vol rate/Area] 94 mL/min/1.73 m2 Normal >=59 [facility] Comment on above: Order Comment: Order added by Discern Expert. Result Comment: Field Professional marquez kidney disease could be indicated at eGFR's of less than 60 mL/min/1.73m2. Kidney failure is indicated at less than 15 mL/min/1.73m2. Performed By: #### 2 697133, 14142622, 2880912, 8505235, [id number], [id number], [id number] ####[facility] [address] [place] [address] Capillary Glucose POCon 11-30 Glucose [Mass/Vol] 396 mg/dL High 55-99 [facility] Comment on above: Result Comment: Lucille ronak Meter Performed By: #### 2 [id number] ####[facility] [address]hencujvq[address] [place] [address] Glucose [Mass/Vol] 212 mg/dL High [address] [place] [address] Comment on above: Result Comment: Lucille ronak Meter Performed By: #### 2 [id number] ####[facility] [address]uulnbe[address] [place] [address] No Panel InformationOrdered By: [facility] MICROBIOLOGY on 12-19-2022 Blood Culture Charcoal No growth at 4 days. Final to follow at 7 days. [facility] Capillary Glucose POCon 11-30 Glucose [Mass/Vol] 171 mg/dL High [address] [place] [address] Comment on above: Result Comment: Lucille ronak Meter Performed By: #### 2 [id number] ####[facility] Qvfleelhsl050 [place] [address] Glucose [Mass/Vol] 205 mg/dL [address] Comment on above: Result Comment: Lucille ronak Meter Performed By: #### 2 [id number] ####[facility] Hkbhrburly985 [place] [address] Glucose [Mass/Vol] 329 mg/dL [address] Comment on above: Performed By: #### 2 [id number] ####[facility] Lgbluhllgv005 [place] [address] Glucose [Mass/Vol] 169 mg/dL [address] Comment on above: Performed By: #### 2 [id number] ####[facility] Xrvotnxdwo[address] [place] [address] XR Hip 2-3 Views Right + Pel vison 12-18-2022 XR Hip 2-3 Views Right + Pelvis Normal [facility] Capillary Glucose POCon 11-29 Glucose [Mass/Vol] 209 mg/dL [address] Comment on above: Result Comment: Lucille ronak Meter Performed By: #### 2 [id number] ####[facility] Iipevtyhqr[address] [place] [address] Glucose [Mass/Vol] 187 mg/dL High [address] [place] [address] Comment on above: Performed By: #### 2 [id number] ####[facility] Xrsszuhsun[address] [place] [address] Glucose [Mass/Vol] 266 mg/dL [address] Comment on above: Performed By: #### 2 [id number] ####[facility] Jpdokjypsa243 [place] [address] Glucose [Mass/Vol] 164 mg/dL [address] Comment on above: Result Comment: Lucille ronak Meter Performed By: #### 2 [id number] ####[facility] Dkeuspuhqb[address] [place] [address] Capillary Glucose POCon 11-29 Glucose [Mass/Vol] 212 mg/dL [address] Comment on above: Result Comment: Lucille ronak Meter Performed By: #### 2 [id number] ####[facility] Jredpxutbr[address] [place] [address] Glucose [Mass/Vol] 229 mg/dL [address] Comment on above: Performed By: #### 2 [id number] ####[facility] [address]boupnqjqy184 [place] [address] Glucose [Mass/Vol] 152 mg/dL [address] Comment on above: Result Comment: Lucille ronak Meter Performed By: #### 2 [id number] ####[facility] Evmnjupfzx710 [place] [address] Capillary Glucose POCon 11-29 Glucose [Mass/Vol] 228 mg/dL [address] Comment on above: Result Comment: Lucille ronak Meter Performed By: #### 2 [id number] ####[facility] Qvgidpdrmn[address] [place] [address] Glucose [Mass/Vol] 208 mg/dL [address] Comment on above: Result Comment: Repe at TestCleaned Meter Performed By: #### 2 [id number] ####[facility] Cexpxgiwbe350 [place] [address] Glucose [Mass/Vol] 183 mg/dL High -[address] [place] [address] Comment on above: Result Comment: Lucille ronak Meter Performed By: #### 2 [id number] ####[facility] Wsbrabyuqs[address] [place] [address] Glucose [Mass/Vol] 281 mg/dL High -[address] [place] [address] Comment on above: Result Comment: Lucille ronak Meter Performed By: #### 2 [id number] ####[facility] Txazolwgjv5[address] [place] [address] Capillary Glucose POCon 11-29 Glucose [Mass/Vol] 130 mg/dL High [address] [place] [address] Comment on above: Result Comment: Lucille ronak Meter Performed By: #### 2 [id number] ####[facility] Gnpxwuuoko648 [facility] [place] [address] Glucose [Mass/Vol] 144 mg/dL [address] [facility] Comment on above: Result Comment: Lucille ronak Meter Performed By: #### 2 [id number] ####[facility] Sepayytjtu949 [facility] [place] [address] Glucose [Mass/Vol] 157 mg/dL [address] Comment on above: Result Comment: Lucille ronak Meter Performed By: #### 2 [id number] ####[facility] Waalkufhsu[address] [place] [address] Glucose [Mass/Vol] 143 mg/dL [address] Comment on above: Result Comment: Lucille ronak Meter Performed By: #### 2 [id number] ####[facility] Fvrbrptwct648 [place] [address] Capillary Glucose POCon 11-29 Glucose [Mass/Vol] 145 mg/dL High 55- [facility] Comment on above: Result Comment: Lucille ronak Meter Performed By: #### 2 [id number] ####[facility] Anlvdxkhiq[address] [place] [address] Glucose [Mass/Vol] 132 mg/dL [address] Comment on above: Performed By: #### 2 [id number] ####[facility] Ihcpcrcspt331 [facility] [place] [address] Glucose [Mass/Vol] 223 mg/dL [address] Comment on above: Performed By: #### 2 [id number] ####[facility] Pluvvuvkbu987 [facility] [place] [address] Glucose [Mass/Vol] 248 mg/dL [address] Comment on above: Result Comment: Lucille ronak Meter Performed By: #### 2 [id number] ####[facility] Ruukkwahzs[address] [place] [address] Capillary Glucose POCon 11-29 Glucose [Mass/Vol] 292 mg/dL [address] Comment on above: Result Comment: Lucille ronak Meter Performed By: #### 2 [id number] ####[facility] Uzoeejjyyi133 [place] [address] Glucose [Mass/Vol] 115 mg/dL [address] Comment on above: Result Comment: Lucille ronak Meter Performed By: #### 2 [id number] ####[facility] Tfhgaghkme280 [place] [address] Glucose [Mass/Vol] 207 mg/dL [address] Comment on above: Result Comment: Lucille ronak Meter Performed By: #### 2 [id number] ####[facility] Awtqxocwof580 [facility] [place] [address] Glucose [Mass/Vol] 159 mg/dL [address] Comment on above: Result Comment: Lucille ronak Meter Performed By: #### 2 [id number] ####[facility] Mdwcjwdgfa200 [place] [address] Capillary Glucose POCon 11-29 Glucose [Mass/Vol] 256 mg/dL High 55-[address] [place] [address] Comment on above: Result Comment: Lucille ronak Meter Performed By: #### 2 [id number] ####[facility] Mnocwnmxuh[address] [place] [address] Glucose [Mass/Vol] 129 mg/dL [place] [address] [place] [address] Comment on above: Result Comment: Lucille ronak Meter Performed By: #### 2 [id number] ####[facility] Zarnwcjvpq[address] [place] [address] Glucose [Mass/Vol] 235 mg/dL [address] Comment on above: Performed By: #### 2 [id number] ####[facility] Bjqllsbqwx[address] [place] [address] Glucose [Mass/Vol] 183 mg/dL [address] Comment on above: Result Comment: Lucille ronak Meter Performed By: #### 2 [id number] ####[facility] Ceigyxxeeo206 [facility] [place] [address] Glucose [Mass/Vol] 178 mg/dL [address] Comment on above: Result Comment: Lucille ronak Meter Performed By: #### 2 [id number] ####[facility] Szgzvbhmcf459 [facility] [place] [address] Capillary Glucose POCon 11-29 Glucose [Mass/Vol] 159 mg/dL [address] Comment on above: Result Comment: Lucille ronak Meter Performed By: #### 2 [id number] ####[facility] Wdcdiqmhfs[address] [place] [address] Glucose [Mass/Vol] 149 mg/dL [address] Comment on above: Result Comment: Lucille ronak Meter Performed By: #### 2 [id number] ####[facility] Ljzaqqwrhw754 [facility] [place] [address] Glucose [Mass/Vol] 217 mg/dL [address] Comment on above: Result Comment: Lucille ronak Meter Performed By: #### 2 [id number] ####[facility] Kcbpwlqulz477 [place] [address] Glucose [Mass/Vol] 206 mg/dL High 55-[address] [place] [address] Comment on above: Result Comment: Lucille ronak Meter Performed By: #### 2 [id number] ####[facility] Czwzmedyke[address] [place] [address] Capillary Glucose POCon 11-29 Glucose [Mass/Vol] 83 mg/dL Normal 55-99 [facility] Comment on above: Result Comment: Lucille ronak Meter Performed By: #### 2 [id number] ####[facility] Nqzuzeczzo843 [place] [address] Glucose [Mass/Vol] 215 mg/dL High 55-[address] [place] [address] Comment on above: Performed By: #### 2 [id number] ####[facility] Yudiztcaer400 [place] [address] Glucose [Mass/Vol] 317 mg/dL High - [facility] Comment on above: Performed By: #### 2 [id number] ####[facility] Zxwcnvojce354 [place] [address] Glucose [Mass/Vol] 166 mg/dL High 55- [facility] Comment on above: Result Comment: Lucille ronak Meter Performed By: #### 2 [id number] ####[facility] Hydkhfztzj[address] [place] [address] Family Medicine Office/Clini c Noteon 12-09-2022 Family Medicine Office/Clinic Note Normal [facility] Comment on above: Result Comment: Elec tronically Signed By: Emely Mccall DO\.br\Date and Time Signed: 12/09/22 09:50 EDT\.br\Electronically Co-Signed By: Sriram Tesfaye\.br\Date and Time Co-Signed: 12/09/22 01:31 EDT Capillary Glucose POCon 11-29 Glucose [Mass/Vol] 282 mg/dL High 55- [facility] Comment on above: Performed By: #### 2 [id number] ####[facility] Mknbmdhgbk[address] [place] [address] Glucose [Mass/Vol] 175 mg/dL [address] Comment on above: Performed By: #### 2 [id number] ####[facility] Ompygtvgdp757 [place] [address] Glucose [Mass/Vol] 316 mg/dL [address] Comment on above: Performed By: #### 2 [id number] ####[facility] Rhbegkqlpi[address] [place] [address] Glucose [Mass/Vol] 262 mg/dL [place] [address] [place] [address] Comment on above: Result Comment: Lucille ronak Meter Performed By: #### 2 [id number] ####[facility] [address]wnxpf8[address] [place] [address] Capillary Glucose POCon Glucose [Mass/Vol] 273 mg/dL [address] Comment on above: Result Comment: Lucille ronak Meter Performed By: #### 2 [id number] ####[facility] Vwdfyhmrwc[address] [place] [address] Glucose [Mass/Vol] 150 mg/dL [address] Comment on above: Performed By: #### 2 [id number] ####[facility] Tkflvewzyn[address] [place] [address] Glucose [Mass/Vol] 58 mg/dL Normal -[address] [place] [address] Comment on above: Performed By: #### 2 [id number] ####[facility] Dlgfvjdbgt135 [place] [address] Glucose [Mass/Vol] 256 mg/dL [address] Comment on above: Performed By: #### 2 [id number] ####[facility] Qidebuqcrb987 [place] [address] Glucose [Mass/Vol] 117 mg/dL [address] Comment on above: Result Comment: Lucille ronak Meter Performed By: #### 2 [id number] ####[facility] Xorsodakly[address] [place] [address] Capillary Glucose POCon 090 Glucose [Mass/Vol] 165 mg/dL High [address] [place] [address] Comment on above: Result Comment: Lucille ronak Meter Performed By: #### 2 [id number] ####[facility] Thbozckzyk904 [place] [address] Glucose [Mass/Vol] 202 mg/dL High [address] [place] [address] Comment on above: Result Comment: Lucille ronak Meter Performed By: #### 2 [id number] ####[place] [address] [place] [address] Glucose [Mass/Vol] 280 mg/dL [address] Comment on above: Result Comment: Lucille ronak Meter Performed By: #### 2 [id number] ####[address] [address] Glucose [Mass/Vol] 156 mg/dL [address] Comment on above: Result Comment: Lucille ronak Meter Performed By: #### 2 [id number] ####[facility] [address] [place] [address] Capillary Glucose POCon 09 Glucose [Mass/Vol] 152 mg/dL [address] Comment on above: Result Comment: Lucille ronak Meter Performed By: #### 2 [id number] ####[facility] Mvnajuowvg571 [place] [address] Glucose [Mass/Vol] 192 mg/dL [address] Comment on above: Performed By: #### 2 [id number] ####[facility] Dvsrlzurrm815 [place] [address] Glucose [Mass/Vol] 317 mg/dL [address] Comment on above: Result Comment: Lucille ronak Meter Performed By: #### 2 [id number] ####[facility] Dyrhipadod[address] [place] [address] Glucose [Mass/Vol] 185 mg/dL High 55-99 [facility] Comment on above: Performed By: #### 2 [id number] ####[facility] Kos[address]nxjwo[address] [place] [address] C Urineon 12-04-2022 Bacteria identified Cx Nom (U) Normal [facility] Comment on above: Performed By: #### 1 [id number], [id number] ####[facility] [address]jiicfr[address]jq[address] [place] [address] Capillary Glucose POCon Glucose [Mass/Vol] 206 mg/dL High 55-99 [facility] Comment on above: Result Comment: Lucille ronak Meter Performed By: #### 2 [id number] ####[facility] [address]tpfr[address]xyf[address] [place] [address] Glucose [Mass/Vol] 181 mg/dL High 55-99 [facility] Comment on above: Result Comment: Lucille ronak Meter Performed By: #### 2 [id number] ####[facility] [address]sqtaiwkcu[address] [place] [address] Glucose [Mass/Vol] 289 mg/dL High 55-99 [facility] Comment on above: Performed By: #### 2 [id number] ####[facility] U[address]imzygb[address] [place] [address] Glucose [Mass/Vol] 211 mg/dL High 55-99 [facility] Comment on above: Result Comment: Lucille ronak Meter Performed By: #### 2 [id number] ####[facility] [address]bdqexu[address] [place] [address] Family Medicine Office/Clini c Noteon 12-04-2022 Family Medicine Office/Clinic Note Normal [facility] Comment on above: Result Comment: Elec tronically Signed By: ZAIRA BANKS, José\.br\Date and Time Signed: 12/03/22 22:17 EDT Capillary Glucose POCon Glucose [Mass/Vol] 159 mg/dL High 55-99 [facility] Comment on above: Result Comment: Lucille ronak Meter Performed By: #### 2 [id number] ####[facility] T[address]ftwmslwl[address] [place] [address] Glucose [Mass/Vol] 89 mg/dL Normal 55-99 [facility] Comment on above: Performed By: #### 2 [id number] ####[facility] [address]fqvfcdsr[address] [place] [address] Glucose [Mass/Vol] 194 mg/dL High 55-99 [facility] Comment on above: Performed By: #### 2 [id number] ####[facility] [address] [facility] [place] [address] Glucose [Mass/Vol] 204 mg/dL High 55-[address] [place] [address] Comment on above: Result Comment: Lucille ronak Meter Performed By: #### 2 [id number] ####[facility] [address] [facility] [place] [address] Capillary Glucose POCon Glucose [Mass/Vol] 178 mg/dL High -[address] [place] [address] Comment on above: Performed By: #### 2 [id number] ####[facility] [address] [place] [address] Glucose [Mass/Vol] 173 mg/dL [place] [address] [place] [address] Comment on above: Performed By: #### 2 [id number] ####[facility] [address] [facility] [place] [address] Glucose [Mass/Vol] 230 mg/dL High -[address] [place] [address] Comment on above: Performed By: #### 2 [id number] ####[facility] [address]juczil[address] [place] [address] Glucose [Mass/Vol] 347 mg/dL High 55-99 [facility] Comment on above: Result Comment: Insu melissa StartedCleaned Meter Performed By: #### 2 [id number] ####[facility] [address] [facility] [place] [address] Glucose [Mass/Vol] 265 mg/dL High 55-99 [facility] Comment on above: Performed By: #### 2 [id number] ####[facility] [address]beynmrr[address] [place] [address] UA With Cult Reflexon 2022 Bacteria LM Ql (Urine sed) 3+ /HPF Abnormal Trace [facility] Comment on above: Performed By: #### 1 [id number], [id number] ####[facility] R[address]baxmegh[address] [place] [address] Bilirubin Ql (U) Negative Normal Negative [facility] Comment on above: Performed By: #### 1 [id number], [id number] ####[facility] [address] [place] [address] Clarity (U) CLOUDY Abnormal Clear [facility] Comment on above: Performed By: #### 1 [id number], [id number] ####[address] [address] Color (U) YELLOW Normal Yellow [facility] Comment on above: Performed By: #### 1 [id number], [id number] ####[address] [address] Epithelial cells.squamous LM.HPF (Urine sed) [#/Area] 0-2 Normal 0-2 [facility] Comment on above: Performed By: #### 1 [id number], [id number] ####[facility] [address] [place] [address] Glucose Test strip (U) [Mass/Vol] Negative Normal Negative [facility] Comment on above: Performed By: #### 1 [id number], [id number] ####[facility] [address] [place] [address] Hemoglobin Ql (U) 1+ Abnormal Negative [facility] Comment on above: Performed By: #### 1 [id number], [id number] ####[facility] R[address]qqygfld[address] [place] [address] Ketones (U) [Mass/Vol] Negative Normal Negative [facility] Comment on above: Performed By: #### 1 [id number], [id number] ####[facility] Gzwy[address]xfjbb809 [place] [address] Bonham.plasma/Bonham.R BC (Bld) [Mass ratio] 0-3 Normal 0-3 [facility] Comment on above: Performed By: #### 1 [id number], [id number] ####[place] [address] [place] [address] Mucus Ql (Urine sed) TRACE Normal [facility] Comment on above: Performed By: #### 1 [id number], [id number] ####[address] [address] Nitrite Ql (U) Negative Normal Negative [facility] Comment on above: Performed By: #### 1 [id number], [id number] ####[address] [address] pH (U) 5.5 [pH] Invalid Interpretation Code 5.0-9.0 [facility] Comment on above: Performed By: #### 1 [id number], 4996935 ####[address] [address] Protein (U) [Mass/Vol] 1+ Abnormal Negative [facility] Comment on above: Performed By: #### 1 [id number], 0899550 ####[address] [address] Specific gravity (U) [Rel density] 1.025 Invalid Interpretation Code 1.005-1.030 [facility] Comment on above: Performed By: #### 1 [id number], 9344585 ####[address] [address] Type of Urine collection method Clean Catch Normal [facility] Comment on above: Performed By: #### 1 [id number], [id number] ####[address] [address] Urobilinogen Qn (U) 2.0 {Papa'U}/dL Abnormal 0.0-1.0 [facility] Comment on above: Performed By: #### 1 [id number], 9852462 ####[facility] [address] [facility] [place] [address] WBC Auto Ql (U) 3+ Abnormal Negative [facility] Comment on above: Performed By: #### 1 [id number], [id number] ####[facility] [address]rrwkcfa[address]737 [facility] [place] [address] WBC LM.HPF (Urine sed) [#/Area] /[HPF] Abnormal 0-5 [facility] Comment on above: Performed By: #### 1 [id number], [id number] ####[facility] Xltpkpyshu[address] [place] [address] Capillary Glucose POCon 09-0 Glucose [Mass/Vol] 196 mg/dL [address] Comment on above: Performed By: #### 2 [id number] ####[facility] [address] [place] [address] Glucose [Mass/Vol] 313 mg/dL [address] Comment on above: Performed By: #### 2 [id number] ####[facility] Xnayrxnbhx598 [place] [address] Glucose [Mass/Vol] 243 mg/dL [address] Comment on above: Result Comment: Lucille ronak Meter Performed By: #### 2 [id number] ####[facility] Wehesaglvs004 [place] [address] Capillary Glucose POCon 09-0 Glucose [Mass/Vol] 181 mg/dL [address] Comment on above: Result Comment: Lucille ronak Meter Performed By: #### 2 [id number] ####[facility] Utgccnxais[address] [place] [address] Glucose [Mass/Vol] 244 mg/dL [address] Comment on above: Result Comment: Lucille ronak Meter Performed By: #### 2 [id number] ####[facility] Xqhggxcoyt228 [place] [address] Glucose [Mass/Vol] 177 mg/dL [address] Comment on above: Performed By: #### 2 [id number] ####[facility] Xompgexqzk494 [place] [address] Glucose [Mass/Vol] 272 mg/dL High 55-99 [facility] Comment on above: Result Comment: Lucille ronak Meter Performed By: #### 2 [id number] ####[facility] Ysmnfiypnt585 [place] [address] Glucose [Mass/Vol] 219 mg/dL High 55-99 [facility] Comment on above: Performed By: #### 2 [id number] ####[facility] Vdcanpqfgq703 [place] [address] CHEMISTRYOrdered By: Lab ROP User on 11-29-2022 Glucose [Mass/Vol] 209 mg/dL High 55 - 99 mg/dL [facility] POC Subsection Comment on above: Result Comment: Fausto CHAUDHARY POC Device SN [id number] Invalid Interpretation Code FT POC Subsection POC User ID [id number] Invalid Interpretation Code [facility] POC Subsection POC Username STEPHANIE JANE Invalid Interpretation Code [facility] POC Subsection Glucose [Mass/Vol] 147 mg/dL High 55 - 99 mg/dL [facility] POC Subsection Comment on above: Result Comment: Fausto CHAUDHARY POC Device SN [id number] Invalid Interpretation Code [facility] POC Subsection POC User ID [id number] Invalid Interpretation Code [facility] POC Subsection POC Username STEPHANIE JANE Invalid Interpretation Code [facility] POC Subsection Capillary Glucose POCon Glucose [Mass/Vol] 189 mg/dL High 55-99 [facility] Comment on above: Performed By: #### 2 [id number] ####[facility] Jqcexulsia[address] [place] [address] Glucose [Mass/Vol] 209 mg/dL High 55-99 [facility] Comment on above: Result Comment: Fausto CHAUDHARY Performed By: #### 2 [id number] ####[facility] Zzcrbrkipf651 [place] [address] Glucose [Mass/Vol] 147 mg/dL High 55-99 [facility] Comment on above: Result Comment: Fausto CHAUDHARY Performed By: #### 2 [id number] ####[facility] [address] [place] [address] Discharge Instructionson Discharge Instructions [id number]:127 [facility] Discharge Note-Nursingon Discharge Note-Nursing [facility] Insurance Correspondence Off iceon 11-29-2022 Insurance Correspondence Office [id number]#[id number]:127 [facility] Interdisciplinary Note - Hardeep e Manageron 11-29-2022 Interdisciplinary Note - Outside Plant Engineer [facility] Comment on above: Result Comment: Elec tronically Signed By: Radha Prabhakar\.br\Date and Time Signed: 11/29/22 11:10 EDT Interdisciplinary Note - Outside Plant Engineer [facility] Comment on above: Result Comment: Elec tronically Signed By: Radha Prabhakar\.br\Date and Time Signed: 11/29/22 10:44 EDT Medication Listson 3 Medication Lists [id number]. [id number]#1.00CD:127 [facility] Message from Medicareon Message from Medicare [id number]. [id number]#1.00CD:127 [facility] Monitor Recordon 11-29-2022 Monitor Record [id number]#1.00CD:127 [facility] Monitor Record [id number]#1.00CD:127 [facility] Monitor Record [id number]#1.00CD:127 [facility] Progress Note-Physicianon Progress Note-Physician [facility] Comment on above: Result Comment: Elec tronically Signed By: FALLON BANKS, Soni\.br\Date and Time Signed: 11/29/22 09:02 EDT Transfer Documentson 023 Transfer Documents [id number]. [id number]#1.00CD:127 Normal [facility] Auto Diffon 11-28-2022 Basophils/100 WBC (Bld) 0.2 % Normal 0.0-2.0 F [facility] Comment on above: Order Comment: Order Added by Discern Expert. Performed By: #### 2 018336, 3332593, 1055422, 5844148, 2441294, 79312808 ####[address] [place] [address] Basophils/Leukocytes Auto (Bld) [Pure # fraction] 0.0 E9/L Normal 0.0-0.2 [facility] Comment on above: Order Comment: Order Added by Discern Expert. Performed By: #### 2 939919, 6972229, 5191734, 2749458, 2329104, 16120575 ####[facility] [address] [place] [address] Eosinophils/100 WBC (Bld) 5.7 % Normal 0.0-8.0 [facility] Comment on above: Order Comment: Order Added by Discern Expert. Performed By: #### 2 789327, 7753836, 3966145, 6708737, 8527483, 48569662 ####[facility] [address] [place] [address] Eosinophils/Leukocytes Auto (Bld) [Pure # fraction] 0.5 E9/L Normal 0.0-0.5 [facility] Comment on above: Order Comment: Order Added by Discern Expert. Performed By: #### 2 337553, 7157106, 5659465, 7226138, 2081552, 34984206 ####[facility] [address] [place] [address] Lymphocytes/100 WBC (Bld) 17.0 % Normal 14.0-50.0 [facility] Comment on above: Order Comment: Order Added by Discern Expert. Performed By: #### 2 318665, 1612246, 8902423, 1880673, 3315884, 94633645 ####[facility] [address] [place] [address] Lymphocytes/Leukocytes Auto (Bld) [Pure # fraction] 1.5 E9/L Normal 1.0-4.0 [facility] Comment on above: Order Comment: Order Added by Discern Expert. Performed By: #### 2 354913, 5895605, 9722932, 3202291, 2044905, 04885539 ####[facility] [address] [place] [address] Monocytes/100 WBC (Bld) 11.7 % Normal 4.0-14.0 [facility] Comment on above: Order Comment: Order Added by Katherine Expert. Performed By: #### 2 175657, 5533104, 2130258, 6625620, 6604196, 34736505 ####[facility] [address] [place] [address] Monocytes/Leukocytes Auto (Bld) [Pure # fraction] 1.1 E9/L High 0.2-1.0 [facility] Comment on above: Order Comment: Order Added by Katherine Expert. Performed By: #### 2 359513, 0838364, 8018841, 8010195, 6914926, 91446308 ####[facility] [address] [place] [address] Neutrophils/100 WBC (Bld) 65.4 % Normal 36.0-75.0 [facility] Comment on above: Order Comment: Order Added by Katherine Expert. Performed By: #### 2 932368, 8025660, 4000986, 1860917, 5320555, 80741446 ####[facility] [address] [place] [address] Neutrophils/Leukocytes Auto (Bld) [Pure # fraction] 5.9 E9/L Normal 2.0-7.5 [facility] Comment on above: Order Comment: Order Added by Discern Expert. Performed By: #### 2 313170, 8317890, 5300103, 6544862, 5067903, 84423055 ####[facility] [address] [place] [address] BUNon 11-28-2022 Urea nitrogen [Mass/Vol] 13 mg/dL Normal 5-21 [facility] Comment on above: Performed By: #### 2 277182, 9523930, 1521221, 2274313, 7661686, 47191230 ####[facility] [address] [place] [address] CBC w/ Auto Diffon Erythrocyte distribution width (RBC) [Ratio] 13.2 % Normal 10.9-14.2 [facility] Comment on above: Performed By: #### 2 837592, 4810149, 8459157, 5679452, 2380874, 00416681 ####[address] [address] Hematocrit (Bld) [Volume fraction] 24.5 % Low 34.0-46.0 [facility] Comment on above: Performed By: #### 2 618249, 1742098, 4685346, 5242330, 1420649, 42735114 ####[address] [address] Hemoglobin (Bld) [Mass/Vol] 8.6 g/dL Low 12.0-16.0 [facility] Comment on above: Performed By: #### 2 517868, 9863604, 1403216, 0158108, 4187938, 31946966 ####[address] [place] [address] MCH (RBC) [Entitic mass] 31.1 pg Normal 27.0-34.0 [facility] Comment on above: Performed By: #### 2 445279, 1808152, 4689361, 2169947, 3485988, 40465627 ####[address] [address] MCHC (RBC) [Mass/Vol] 35.0 g/dL Normal 31.4-36.0 [facility] Comment on above: Performed By: #### 2 445109, 6703131, 3222625, 9780401, 8067519, 95242006 ####[facility] [address] [place] [address] MCV (RBC) [Entitic vol] 89.1 fL Normal 80.0-100.0 [facility] Comment on above: Performed By: #### 2 472188, 5034520, 7971916, 6269243, 1319870, 87941433 ####[facility] [address] Platelet mean volume (Bld) [Entitic vol] 9.0 fL Normal 6.4-10.8 [facility] Comment on above: Performed By: #### 2 634673, 8168264, 2240549, 8470810, 0798813, 78387663 ####[facility] [address] [place] [address] Platelets (Bld) [#/Vol] 158.0 E9/L Normal 150.0-500.0 [facility] Comment on above: Performed By: #### 2 940183, 8672714, 5289882, 1453490, 6889443, 10321540 ####[address] RBC (Bld) [#/Vol] 2.8 E12/L Low 4.3-5.9 [facility] Comment on above: Performed By: #### 2 804775, 4487648, 9112929, 3834818, 7296308, 83111735 ####[address] [address] WBC corrected for nucl RBC Auto (Bld) [#/Vol] 9.1 E9/L Normal 4.0-11.0 [facility] Comment on above: Performed By: #### 2 542072, 0637294, 7315035, 5981488, 3690980, 28818838 ####[facility] [address] [place] [address] CHEMISTRYOrdered By: Lab ROP User on 11-28-2022 Glucose [Mass/Vol] 141 mg/dL High 55 - 99 mg/dL [facility] POC Subsection Comment on above: Result Comment: Fausto CHAUDHARY POC Device SN [id number] Invalid Interpretation Code [facility] POC Subsection POC User ID [id number] Invalid Interpretation Code [facility] POC Subsection POC Username JOANNA AG Invalid Interpretation Code [facility] POC Subsection CHEMISTRYOrdered By: SYSTEM SYSTEM on 11-28-2022 Anion gap [Moles/Vol] 7 mmol/L Normal 6 - 16 mEq/L F C Remisol Chloride [Moles/Vol] 112 mmol/L High 101 - 1 11 mmol/L [facility] Remisol CO2 [Moles/Vol] 25 mmol/L Normal 21 - 31 mmol/L [facility] Remisol Creatinine [Mass/Vol] 0.9 mg/dL Normal 0.5 - 1.3 mg/dL [facility] Remisol GFR/1.73 sq M.predicted among non-blacks MDRD (S/P/Bld) [Vol rate/Area] 70 mL/min/1.73 m2 Normal >=59mL/min/1 .73 m2 [facility] Chem S Potassium [Moles/Vol] 3.6 mmol/L Normal 3.5 - 5.3 mmol/L [facility] Remisol Sodium [Moles/Vol] 140 mmol/L Normal 135 - 145 mmol/L [facility] Remisol Urea nitrogen [Mass/Vol] 13 mg/dL Normal 5 - 21 mg/d L [facility] Remisol Capillary Glucose POCon 10-31 Glucose [Mass/Vol] 141 mg/dL High 55-99 [facility] Comment on above: Result Comment: Fausto CHAUDHARY Performed By: #### 2 [id number] ####[facility] [address] [place] [address] Glucose [Mass/Vol] 118 mg/dL High 55-99 [facility] Comment on above: Result Comment: Fausto CHAUDHARY Performed By: #### 2 06251865 ####[facility] [address] [place] [address] Glucose [Mass/Vol] 221 mg/dL High 55-99 [facility] Comment on above: Result Comment: Fausto rubi RN/ Performed By: #### 2 [id number] ####[facility] [address] [place] [address] Glucose [Mass/Vol] 147 mg/dL High 55-99 [facility] Comment on above: Result Comment: Fausto rubi RN/ Performed By: #### 2 84075753 ####[facility] [address] [place] [address] Glucose [Mass/Vol] 169 mg/dL [facility] 55-99 [facility] Comment on above: Result Comment: Fausto rubi RN/ Performed By: #### 2 80440417 ####[facility] [address] [place] [address] Creatinineon 11-28-2022 Creatinine [Mass/Vol] 0.9 mg/dL Normal 0.5-1.3 [facility] Comment on above: Performed By: #### 2 865366, 7912605, 0132635, 5877714, 6100145, 48355635 ####[facility] [address] [place] [address] GetWell Education Videoon GetWell Education Video Yes Patient Avoiding Infections in the Hospital Normal [facility] HEMATOLOGYOrdered By: SYSTEM SYSTEM on 11-28-2022 Basophils/100 [...] MCH (RBC) [Entitic mass] 31.1 pg Normal 27. 0 - 34.0 pg [facility] MCHC (RBC) [Mass/Vol] 35.0 g/dL Normal 31.4 - 36.0 gm/dL [facility] MCV (RBC) [Entitic vol] 89.1 fL Normal 80.0 - 100.0 fL [facility] Platelet mean volume (Bld) [Entitic vol] 9.0 fL Normal 6.4 - 10.8 fL [facility] Platelets (Bld) [#/Vol] 158.0 E9/L Normal 150. 0 - 500.0 E9/L [facility] RBC (Bld) [#/Vol] 2.8 E12/L Low 4.3 - 5.9 E12/L [facility] WBC corrected for nucl RBC Auto (Bld) [#/Vol] 9.1 E9/L Normal 4.0 - 11.0 E9/L [facility] Inpatient Clinical Summaryon 11-28-2022 Inpatient Clinical Summary Normal [facility] Inpatient Patient Summaryon 11-28-2022 Inpatient Patient Summary Normal [facility] IntraOperative Documentson 0 11-28-2022 IntraOperative Documents [id number]#1.00CD:127 Normal [facility] Lyteson 11-28-2022 Anion gap [Moles/Vol] 7 mmol/L Normal 6-16 [facility] Comment on above: Performed By: #### 2 933422, 7607743, 4654699, 9434111, 1822213, 25559176 ####[facility] [address] [place] [address] Chloride [Moles/Vol] 112 mmol/L High 101-111 [facility] Comment on above: Performed By: #### 2 031421, 2143764, 8842218, 8878726, 1158195, 43757903 ####[facility] [address] [place] [address] CO2 [Moles/Vol] 25 mmol/L Normal - [facility] Comment on above: Performed By: #### 2 357591, 2709306, 7274655, 0422715, 3373615, 92242721 ####[facility] [address] [place] [address] Potassium [Moles/Vol] 3.6 mmol/L Normal 3.5-5.3 [facility] Comment on above: Performed By: #### 2 447916, 1282612, 1795325, 9352479, 0914311, 79068597 ####[facility] [address] [place] [address] Sodium [Moles/Vol] 140 mmol/L Normal 135-145 [facility] Comment on above: Performed By: #### 2 587576, 6699829, 9705543, 4164049, 9712005, 39931610 ####[facility] [address] [place] [address] Monitor Recordon 11-28-2022 Monitor Record [id number]#1.00CD:127 Normal [facility] Monitor Record [id number]#1.00CD:127 Normal [facility] Monitor Record [id number]#1.00CD:127 Normal [facility] Progress Note-Physicianon Progress Note-Physician Normal [facility] Comment on above: Result Comment: Elec tronically Signed By: Joaquim Rice DO\.br\Date and Time Signed: 11/28/22 17:17 EDT Progress Note-Physician Normal [facility] Comment on above: Result Comment: Elec tronically Signed By: Soni PADGETT MD\.br\Date and Time Signed: 11/28/22 09:37 EDT eGFRon 11-28-2022 GFR/1.73 sq M.predicted among non-blacks MDRD (S/P/Bld) [Vol rate/Area] 70 mL/min/1.73 m2 Normal >=59 [facility] Comment on above: Order Comment: Order added by Discern Expert. Result Comment: Field Professional marquez kidney disease could be indicated at eGFR's of less than 60 mL/min/1.73m2. Kidney failure is indicated at less than 15 mL/min/1.73m2. Performed By: #### 2 824159, 0802276, 4453499, 8273409, 1175796, 30192744 ####[facility] [address] [place] [address] Auto Diffon 11-27-2022 Basophils/100 WBC (Bld) 0.2 % Normal 0.0-2.0 [facility] Comment on above: Order Comment: Order Added by Discern Expert. Performed By: #### 2 792078, 7696136 ####[facility] [address] [place] [address] Basophils/Leukocytes Auto (Bld) [Pure # fraction] 0.0 E9/L Normal 0.0-0.2 [facility] Comment on above: Order Comment: Order Added by Discern Expert. Performed By: #### 2 649046, 1781451 ####[address] [address] Eosinophils/100 WBC (Bld) 1.8 % Normal 0.0-8.0 [facility] Comment on above: Order Comment: Order Added by Discern Expert. Performed By: #### 2 725386, 2459293 ####[address] [address] Eosinophils/Leukocytes Auto (Bld) [Pure # fraction] 0.2 E9/L Normal 0.0-0.5 [facility] Comment on above: Order Comment: Order Added by Katherine Expert. Performed By: #### 2 605552, 8343172 ####[address] [address] Lymphocytes/100 WBC (Bld) 16.0 % Normal 14.0-50.0 [facility] Comment on above: Order Comment: Order Added by Discern Expert. Performed By: #### 2 535611, 2298226 ####[address] [address] Lymphocytes/Leukocytes Auto (Bld) [Pure # fraction] 1.4 E9/L Normal 1.0-4.0 [facility] Comment on above: Order Comment: Order Added by Katherine Expert. Performed By: #### 2 184925, 7085814 ####[address] [address] Monocytes/100 WBC (Bld) 11.9 % Normal 4.0-14.0 [facility] Comment on above: Order Comment: Order Added by Discern Expert. Performed By: #### 2 879727, 3327812 ####[facility] [address] [place] [address] Monocytes/Leukocytes Auto (Bld) [Pure # fraction] 1.0 E9/L Normal 0.2-1.0 [facility] Comment on above: Order Comment: Order Added by Discern Expert. Performed By: #### 2 503285, 5036099 ####[facility] [address] [place] [address] Neutrophils/100 WBC (Bld) 70.1 % Normal 36.0-75.0 [facility] Comment on above: Order Comment: Order Added by Discern Expert. Performed By: #### 2 974278, 9004291 ####[address] [place] [address] Neutrophils/Leukocytes Auto (Bld) [Pure # fraction] 6.2 E9/L Normal 2.0-7.5 [facility] Comment on above: Order Comment: Order Added by Discern Expert. Performed By: #### 2 418817, 9966543 ####[facility] [address] [facility] [place] [address] BMPon 11-27-2022 Anion gap [Moles/Vol] 7 mmol/L Normal 6-16 [facility] Comment on above: Performed By: #### 2 520926, 24874408 ####[facility] [address] [place] [address] Calcium [Mass/Vol] 8.1 mg/dL Low 8.9-11.1 [facility] Comment on above: Performed By: #### 2 688665, 26034949 ####[facility] [address] [place] [address] Chloride [Moles/Vol] 114 mmol/L High 101-111 [facility] Comment on above: Performed By: #### 2 473825, 22278865 ####[facility] [address] [place] [address] CO2 [Moles/Vol] 23 mmol/L Normal 21-31 [facility] Comment on above: Performed By: #### 2 826313, 59485175 ####[facility] [address] [facility] [place] [address] Creatinine [Mass/Vol] 1.0 mg/dL Normal 0.5-1.3 [facility] Comment on above: Performed By: #### 2 424761, 60960761 ####[facility] [address] [place] [address] Glucose [Mass/Vol] 255 mg/dL High 55-199 [facility] Comment on above: Result Comment: If t his glucose result represents a fasting glucose, interpretation should refer to the following reference range: 55-99 mg/dL Performed By: #### 2 637894, 09002572 ####[facility] [address] [place] [address] Potassium [Moles/Vol] 3.8 mmol/L Normal 3.5-5.3 [facility] Comment on above: Performed By: #### 2 263861, 03376535 ####[address] [address] Sodium [Moles/Vol] 140 mmol/L Normal 135-145 [facility] Comment on above: Performed By: #### 2 079609, 97853479 ####[facility] [address] [place] [address] Urea nitrogen [Mass/Vol] 19 mg/dL Normal 5-21 [facility] Comment on above: Performed By: #### 2 684182, 22217119 ####[address] [address] Urea nitrogen/Creatinine [Mass ratio] 19 No Units Normal 10-20 [facility] Comment on above: Performed By: #### 2 127246, 89392684 ####[facility] [address] [place] [address] CBC w/ Auto Diffon 3 Erythrocyte distribution width (RBC) [Ratio] 13.3 % Normal 10.9-14.2 [facility] Comment on above: Performed By: #### 2 399351, 7586402 ####[facility] [address] [place] [address] Hematocrit (Bld) [Volume fraction] 22.7 % Low 34.0-46.0 [facility] Comment on above: Performed By: #### 2 684051, 0797227 ####[address] [place] [address] Hemoglobin (Bld) [Mass/Vol] 7.8 g/dL Low 12.0-16.0 [facility] Comment on above: Performed By: #### 2 437217, 4403281 ####[address] [address] MCH (RBC) [Entitic mass] 30.6 pg Normal 27.0-34.0 [facility] Comment on above: Performed By: #### 2 432245, 7182698 ####[address] [address] MCHC (RBC) [Mass/Vol] 34.5 g/dL Normal 31.4-36.0 [facility] Comment on above: Performed By: #### 2 079532, 1217493 ####[address] [address] MCV (RBC) [Entitic vol] 88.6 fL Normal 80.0-100.0 [facility] Comment on above: Performed By: #### 2 527924, 2791085 ####[address] [address] Platelet mean volume (Bld) [Entitic vol] 9.3 fL Normal 6.4-10.8 [facility] Comment on above: Performed By: #### 2 126302, 7874427 ####[address] [address] Platelets (Bld) [#/Vol] 133.0 E9/L Low 150.0-500.0 [facility] Comment on above: Performed By: #### 2 543597, 1762359 ####[address] [address] RBC (Bld) [#/Vol] 2.6 E12/L Low 4.3-5.9 [facility] Comment on above: Performed By: #### 2 705576, 7759605 ####[address] [place] [address] WBC corrected for nucl RBC Auto (Bld) [#/Vol] 8.8 E9/L Normal 4.0-11.0 [facility] Comment on above: Performed By: #### 2 141279, 5583436 ####[facility] [address] [place] [address] CHEMISTRYOrdered By: SYSTEM SYSTEM on 11-27-2022 Anion gap [Moles/Vol] 7 mmol/L Normal 6 - 16 mEq/L [facility] Remisol Calcium [Mass/Vol] 8.1 mg/dL Low 8.9 - 11. 1 mg/dL FT Remisol Chloride [Moles/Vol] 114 mmol/L High 101 - 1 11 mmol/L FT Remisol CO2 [Moles/Vol] 23 mmol/L Normal 21 - 31 mmol/L [facility] Remisol Creatinine [Mass/Vol] 1.0 mg/dL Normal 0.5 - 1.3 mg/dL [facility] Remisol GFR/1.73 sq M.predicted among non-blacks MDRD (S/P/Bld) [Vol rate/Area] 61 mL/min/1.73 m2 Normal >=59mL/min/1 .73 m2 [facility] Chem S Glucose [Mass/Vol] 255 mg/dL High 55 - 199 mg/dL FT Remisol Potassium [Moles/Vol] 3.8 mmol/L Normal 3.5 - 5.3 mmol/L [facility] Remisol Sodium [Moles/Vol] 140 mmol/L Normal 135 - 145 mmol/L [facility] Remisol Urea nitrogen [Mass/Vol] 19 mg/dL Normal 5 - 21 mg/d L [facility] Remisol Urea nitrogen/Creatinine [Mass ratio] 19 mg/mg Normal 10 - 20 [facility] Remisol Capillary Glucose POCon 10-31 Glucose [Mass/Vol] 104 mg/dL High 55-99 [facility] Comment on above: Result Comment: No C overage Given Performed By: #### 2 [id number] ####[facility] [address] [place] [address] Glucose [Mass/Vol] 166 mg/dL High 55-99 [facility] Comment on above: Result Comment: Insu melissa Started Performed By: #### 2 80584806 ####[facility] [address] [place] [address] Glucose [Mass/Vol] 110 mg/dL High 55-99 [facility] Comment on above: Result Comment: No C overage Given Performed By: #### 2 99816031 ####[facility] [address] [place] [address] HEMATOLOGYOrdered By: SYSTEM SYSTEM on 11-27-2022 Basophils/100 [...] - 7.5 E9/L [facility] HEMATOLOGYOrdered By: Sehila Carter on 11-27-2022 Erythrocyte distribution width (RBC) [Ratio] 13.3 % Normal 10.9 - 14.2 % [facility] Hematocrit (Bld) [Volume fraction] 22.7 % Low 34.0 - 46.0 % [facility] Hemoglobin (Bld) [Mass/Vol] 7.8 g/dL Low 12.0 - 16.0 gm/dL [facility] MCH (RBC) [Entitic mass] 30.6 pg Normal 27. 0 - 34.0 pg [facility] MCHC (RBC) [...] 8.8 E9/L Normal 4.0 - 11.0 E9/L [facility] HemeAutoSS Monitor Recordon 11-27-2022 Monitor Record [id number]#1.00CD:127 Normal [facility] Monitor Record [id number]#1.00CD:127 Normal [facility] Monitor Record [id number]#1.00CD:127 Normal [facility] Progress Note-Physicianon Progress Note-Physician Normal [facility] Comment on above: Result Comment: Elec tronically Signed By: Joaquim Rice DO\.br\Date and Time Signed: 11/27/22 20:04 EDT Progress Note-Physician Normal [facility] Comment on above: Result Comment: Elec tronically Signed By: FALLON BANKS, Soni\.br\Date and Time Signed: 11/27/22 09:12 EDT eGFRon 11-27-2022 GFR/1.73 sq M.predicted among non-blacks MDRD (S/P/Bld) [Vol rate/Area] 61 mL/min/1.73 m2 Normal >=59 [facility] Comment on above: Order Comment: Order added by Discern Expert. Result Comment: Field Professional marquez kidney disease could be indicated at eGFR's of less than 60 mL/min/1.73m2. Kidney failure is indicated at less than 15 mL/min/1.73m2. Performed By: #### 2 901738, [id number] ####[address] [place] [address] Auto Diffon 11-26-2022 Basophils/100 WBC (Bld) 0.1 % Normal 0.0-2.0 [facility] Comment on above: Order Comment: Order Added by Discern Expert. Performed By: #### 2 720340, 4068141 ####[address] [address] Basophils/Leukocytes Auto (Bld) [Pure # fraction] 0.0 E9/L Normal 0.0-0.2 [facility] Comment on above: Order Comment: Order Added by Katherine Expert. Performed By: #### 2 281765, 0764336 ####[address] [address] Eosinophils/100 WBC (Bld) 0.0 % Normal 0.0-8.0 [facility] Comment on above: Order Comment: Order Added by Katherine Expert. Performed By: #### 2 163881, 9455243 ####[address] [address] Eosinophils/Leukocytes Auto (Bld) [Pure # fraction] 0.0 E9/L Normal 0.0-0.5 [facility] Comment on above: Order Comment: Order Added by Katherine Expert. Performed By: #### 2 843947, 7511344 ####[address] [address] Lymphocytes/100 WBC (Bld) 4.8 % Low 14.0-50.0 [facility] Comment on above: Order Comment: Order Added by Discern Expert. Performed By: #### 2 289356, 1795525 ####[address] [place] [address] Lymphocytes/Leukocytes Auto (Bld) [Pure # fraction] 0.4 E9/L Low 1.0-4.0 [facility] Comment on above: Order Comment: Order Added by Discern Expert. Performed By: #### 2 456009, 7825015 ####[address] [address] Monocytes/100 WBC (Bld) 6.9 % Normal 4.0-14.0 [facility] Comment on above: Order Comment: Order Added by Discern Expert. Performed By: #### 2 652997, 4460560 ####[address] [address] Monocytes/Leukocytes Auto (Bld) [Pure # fraction] 0.5 E9/L Normal 0.2-1.0 [facility] Comment on above: Order Comment: Order Added by Discern Expert. Performed By: #### 2 290729, 0529524 ####[address] [address] Neutrophils/100 WBC (Bld) 88.2 % High 36.0-75.0 [facility] Comment on above: Order Comment: Order Added by Katherine Expert. Performed By: #### 2 338315, 1951037 ####[address] [address] Neutrophils/Leukocytes Auto (Bld) [Pure # fraction] 6.6 E9/L Normal 2.0-7.5 [facility] Comment on above: Order Comment: Order Added by Discern Expert. Performed By: #### 2 589758, 8936144 ####[address] [address] BMPon 11-26-2022 Anion gap [Moles/Vol] 7 mmol/L Normal 6-16 [facility] Comment on above: Performed By: #### 2 383601, 77550805 ####[facility] [address] [place] [address] Calcium [Mass/Vol] 7.9 mg/dL Low 8.9-11.1 [facility] Comment on above: Performed By: #### 2 154380, 68867030 ####[facility] [address] [place] [address] Chloride [Moles/Vol] 108 mmol/L Normal 101-111 [facility] Comment on above: Performed By: #### 2 019030, 90426372 ####[facility] [address] [place] [address] CO2 [Moles/Vol] 22 mmol/L Normal 21-31 [facility] Comment on above: Performed By: #### 2 826254, [id number] ####[facility] [address] [place] [address] Creatinine [Mass/Vol] 1.3 mg/dL Normal 0.5-1.3 [facility] Comment on above: Performed By: #### 2 395804, [id number] ####[facility] [address] [place] [address] Glucose [Mass/Vol] 353 mg/dL High 55-199 [facility] Comment on above: Result Comment: If t his glucose result represents a fasting glucose, interpretation should refer to the following reference range: 55-99 mg/dL Performed By: #### 2 145945, 44414118 ####[facility] [address] [place] [address] Potassium [Moles/Vol] 4.1 mmol/L Normal 3.5-5.3 [facility] Comment on above: Performed By: #### 2 918595, 81269056 ####[facility] [address] [place] [address] Sodium [Moles/Vol] 133 mmol/L Low 135-145 [facility] Comment on above: Performed By: #### 2 758643, 14804491 ####[facility] [address] [place] [address] Urea nitrogen [Mass/Vol] 21 mg/dL Normal 5-21 [facility] Comment on above: Performed By: #### 2 954477, 50358908 ####[facility] [address] [place] [address] Urea nitrogen/Creatinine [Mass ratio] 16 No Units Normal 10-20 [facility] Comment on above: Performed By: #### 2 264980, 90099600 ####[facility] [address] [place] [address] CBC w/ Auto Diffon 3 Erythrocyte distribution width (RBC) [Ratio] 12.7 % Normal 10.9-14.2 [facility] Comment on above: Performed By: #### 2 613732, 7269842 ####[address] [address] Hematocrit (Bld) [Volume fraction] 22.2 % Low 34.0-46.0 [facility] Comment on above: Performed By: #### 2 536015, 5203853 ####[address] [address] Hemoglobin (Bld) [Mass/Vol] 7.6 g/dL Low 12.0-16.0 [facility] Comment on above: Performed By: #### 2 398679, 0280578 ####[address] [address] MCH (RBC) [Entitic mass] 30.0 pg Normal 27.0-34.0 [facility] Comment on above: Performed By: #### 2 552327, 0817006 ####[address] [address] MCHC (RBC) [Mass/Vol] 34.1 g/dL Normal 31.4-36.0 [facility] Comment on above: Performed By: #### 2 144481, 5472593 ####[address] [address] MCV (RBC) [Entitic vol] 88.1 fL Normal 80.0-100.0 [facility] Comment on above: Performed By: #### 2 480547, 1049434 ####[facility] [address] [place] [address] Platelet mean volume (Bld) [Entitic vol] 8.9 fL Normal 6.4-10.8 [facility] Comment on above: Performed By: #### 2 844258, 6342661 ####[facility] [address] [place] [address] Platelets (Bld) [#/Vol] 121.0 E9/L Low 150.0-500.0 [facility] Comment on above: Performed By: #### 2 029146, 5423938 ####[facility] [address] [place] [address] RBC (Bld) [#/Vol] 2.5 E12/L Low 4.3-5.9 [facility] Comment on above: Performed By: #### 2 024362, 5535776 ####[facility] [address] [place] [address] WBC corrected for nucl RBC Auto (Bld) [#/Vol] 7.5 E9/L Normal 4.0-11.0 [facility] Comment on above: Performed By: #### 2 129096, 8122243 ####[address] [address] CHEMISTRYOrdered By: SYSTEM SYSTEM on 11-26-2022 Anion gap [Moles/Vol] 7 mmol/L Normal 6 - 16 mEq/L [facility] Remisol Calcium [Mass/Vol] 7.9 mg/dL Low 8.9 - 11. 1 mg/dL [facility] Chloride [Moles/Vol] 108 mmol/L Normal 101 - 1 11 mmol/L [facility]isol CO2 [Moles/Vol] 22 mmol/L Normal 21 - 31 mmol/L [facility] Remisol Creatinine [Mass/Vol] 1.3 mg/dL Normal 0.5 - 1.3 mg/dL [facility] Remisol GFR/1.73 sq M.predicted among non-blacks MDRD (S/P/Bld) [Vol rate/Area] 45 mL/min/1.73 m2 Low >=59mL/min/1 .73 m2 [facility] Chem S Glucose [Mass/Vol] 353 mg/dL High 55 - 199 mg/dL [facility] Remisol Potassium [Moles/Vol] 4.1 mmol/L Normal 3.5 - 5.3 mmol/L [facility] Remisol Sodium [Moles/Vol] 133 mmol/L Low 135 - 145 mmol/L [facility] Remisol Urea nitrogen [Mass/Vol] 21 mg/dL Normal 5 - 21 mg/d L [facility] Remisol Urea nitrogen/Creatinine [Mass ratio] 16 mg/mg Normal 10 - 20 [facility] Remisol Capillary Glucose POCon 10-30 Glucose [Mass/Vol] 184 mg/dL High 55-99 [facility] Comment on above: Result Comment: Fausto CHAUDHARY Performed By: #### 2 [id number] ####[facility] [address] [place] [address] Glucose [Mass/Vol] 231 mg/dL High 55-99 [facility] Comment on above: Performed By: #### 2 12142343 ####[facility] [address] [place] [address] Glucose [Mass/Vol] 248 mg/dL High 55-99 [facility] Comment on above: Result Comment: Fausto CHAUDHARY Performed By: #### 2 [id number] ####[facility] [address] [place] [address] Glucose [Mass/Vol] 299 mg/dL High 55-99 [facility] Comment on above: Result Comment: Fausto CHAUDHARY Performed By: #### 2 [id number] ####[facility] [address] [place] [address] Glucose [Mass/Vol] 411 mg/dL High 55-99 [facility] Comment on above: Result Comment: Fausto CHAUDHARY Performed By: #### 2 80410703 ####[facility] [address] [place] [address] Glucose [Mass/Vol] 409 mg/dL High 55-99 [facility] Comment on above: Result Comment: Fausto rubi RN/ Performed By: #### 2 [id number] ####[facility] [address] [place] [address] Consent for Anesthesiaon Consent for Anesthesia [id number]:127 Normal [facility] HEMATOLOGYOrdered By: Chrissy Bradford on 11-26-2022 Hematocrit [...] MCH (RBC) [Entitic mass] 30.0 pg Normal 27. 0 - 34.0 pg [facility] HemeAutoSS MCHC (RBC) [...] (Bld) [Volume fraction] 23.2 % Low 34.0-46.0 [facility] Comment on above: Performed By: #### 1 6122475 ####[facility] [address] [place] [address] Hemoglobin (Bld) [Mass/Vol] 8.0 g/dL Low 12.0-16.0 [facility] Comment on above: Performed By: #### 1 9995520 ####[facility] [address] [place] [address] Insurance Correspondence Off iceon 11-26-2022 Insurance Correspondence Office [id number]:127 Normal [facility] Interdisciplinary Note - Hardeep e Manageron 11-26-2022 Interdisciplinary Note - Outside Plant Engineer Normal [facility] Comment on above: Result Comment: Elec tronically Signed By: Radha Prabhakar\.br\Date and Time Signed: 11/26/22 11:36 EDT Interdisciplinary Note - Timo n 11-26-2022 Interdisciplinary Note - OT Normal [facility] Interdisciplinary Note - PTo n 11-26-2022 Interdisciplinary Note - PT Normal [facility] IntraOperative Documentson 0 11-26-2022 IntraOperative Documents [id number]:127 Normal [facility] Progress Note-Physicianon Progress Note-Physician Normal [facility] Comment on above: Result Comment: Elec tronically Signed By: MD Martinez Ahmad F\.br\Date and Time Signed: 11/26/22 15:06 EDT Progress Note-Physician Normal [facility] Comment on above: Result Comment: Elec tronically Signed By: MD Martinez Ahmad F\.br\Date and Time Signed: 11/26/22 15:03 EDT Progress Note-Physician Normal [facility] Comment on above: Result Comment: Elec tronically Signed By: Anu MANZANO\.br\Date and Time Signed: 11/26/22 11:10 EDT\.br\Electronically Co-Signed By: Nesha SHANKAR MD\.br\Date and Time Co-Signed: 11/26/22 11:41 EDT RCOon 11-26-2022 # of Units 1 Invalid Interpretation Code [facility] Comment on above: Result Comment: 11/26 10:54 [id number] product ready and called to 3N MARVIN at 11/26/2022 10:54:18 EDT by AG. Performed By: #### 1 [id number] ####[facility] [address] [place] [address] Date Required 20221126 Invalid Interpretation Code [facility] Comment on above: Performed By: #### 1 1357215 ####[facility] [address] [place] [address] Order to Transfuse Yes Normal [facility] Comment on above: Performed By: #### 1 0426349 ####[facility] [address] [place] [address] Product Type None Required Invalid Interpretation Code [facility] Comment on above: Performed By: #### 1 1536189 ####[facility] [address] [place] [address] eGFRon 11-26-2022 GFR/1.73 sq M.predicted among non-blacks MDRD (S/P/Bld) [Vol rate/Area] 45 mL/min/1.73 m2 Low >=59 [facility] Comment on above: Order Comment: Order added by Discern Expert. Result Comment: Field Professional marquez kidney disease could be indicated at eGFR's of less than 60 mL/min/1.73m2. Kidney failure is indicated at less than 15 mL/min/1.73m2. Performed By: #### 2 415246, 81755314 ####[facility] [address] [place] [address] Auto Diffon 11-25-2022 Basophils/100 WBC (Bld) 0.4 % Normal 0.0-2.0 [facility] Comment on above: Order Comment: Order Added by Discern Expert. Performed By: #### 1 9669606, 8629165, 3597857, 3721575, 6553783, 3866391, 8835157 ####[address] [address] Basophils/Leukocytes Auto (Bld) [Pure # fraction] 0.0 E9/L Normal 0.0-0.2 [facility] Comment on above: Order Comment: Order Added by Discern Expert. Performed By: #### 1 4328390, 5710876, 3941001, 5523109, 5809547, 3116395, 4385926 ####[address] [place] [address] Eosinophils/100 WBC (Bld) 4.1 % Normal 0.0-8.0 [facility] Comment on above: Order Comment: Order Added by Discern Expert. Performed By: #### 1 4310646, 8148176, 9872259, 0168711, 2949107, 9615619, 4001742 ####[address] [place] [address] Eosinophils/Leukocytes Auto (Bld) [Pure # fraction] 0.2 E9/L Normal 0.0-0.5 [facility] Comment on above: Order Comment: Order Added by Discern Expert. Performed By: #### 1 9292335, 0675471, 8453049, 3609959, 7358838, 7473187, 8296257 ####[address] [address] Lymphocytes/100 WBC (Bld) 28.6 % Normal 14.0-50.0 [facility] Comment on above: Order Comment: Order Added by Katherine Expert. Performed By: #### 1 7652819, 7733244, 5975611, 7988886, 2528981, 9810170, 7446582 ####[address] [address] Lymphocytes/Leukocytes Auto (Bld) [Pure # fraction] 1.4 E9/L Normal 1.0-4.0 [facility] Comment on above: Order Comment: Order Added by Katherine Expert. Performed By: #### 1 5302028, 6080938, 3506421, 1266211, 2301326, 3899473, 7365789 ####[address] [address] Monocytes/100 WBC (Bld) 13.8 % Normal 4.0-14.0 [facility] Comment on above: Order Comment: Order Added by Discern Expert. Performed By: #### 1 3705099, 3636287, 3881632, 2455247, 3578275, 0002463, 1212451 ####[address] [place] [address] Monocytes/Leukocytes Auto (Bld) [Pure # fraction] 0.7 E9/L Normal 0.2-1.0 [facility] Comment on above: Order Comment: Order Added by Katherine Expert. Performed By: #### 1 0780845, 3705257, 1246715, 0484444, 1251926, 3783924, 1532842 ####[facility] [address] [place] [address] Neutrophils/100 WBC (Bld) 53.1 % Normal 36.0-75.0 [facility] Comment on above: Order Comment: Order Added by Discern Expert. Performed By: #### 1 5140548, 2373930, 8501466, 3087415, 8579419, 5055980, 3523401 ####[facility] [address] [place] [address] Neutrophils/Leukocytes Auto (Bld) [Pure # fraction] 2.6 E9/L Normal 2.0-7.5 [facility] Comment on above: Order Comment: Order Added by Discern Expert. Performed By: #### 1 8954852, 7315471, 7687394, 0902596, 1110034, 2148924, 5211038 ####[address] [place] [address] BMPon 11-25-2022 Anion gap [Moles/Vol] 7 mmol/L Normal 6-16 [facility] Comment on above: Performed By: #### 1 7409044, 0821804, 2620746, 3537640, 5821111, 3844213, 4829347 ####[facility] [address] [place] [address] Calcium [Mass/Vol] 8.6 mg/dL Low 8.9-11.1 [facility] Comment on above: Performed By: #### 1 2143236, 9554391, 6631320, 2350172, 9814428, 2363240, 3380949 ####[facility] [address] [place] [address] Chloride [Moles/Vol] 114 mmol/L High 101-111 [facility] Comment on above: Performed By: #### 1 1579563, 7056885, 6992544, 5067705, 6533327, 6433613, 3074474 ####[facility] [address] [place] [address] CO2 [Moles/Vol] 24 mmol/L Normal 21-31 [facility] Comment on above: Performed By: #### 1 9719003, 1522528, 7376527, 7897995, 4281176, 2798532, 6654828 ####[facility] [address] [place] [address] Creatinine [Mass/Vol] 1.0 mg/dL Normal 0.5-1.3 [facility] Comment on above: Performed By: #### 1 9013802, 5460097, 0569799, 9392212, 1549797, 1671750, 7818549 ####[facility] [address] [place] [address] Glucose [Mass/Vol] 98 mg/dL Normal 55-199 [facility] Comment on above: Result Comment: If t his glucose result represents a fasting glucose, interpretation should refer to the following reference range: 55-99 mg/dL Performed By: #### 1 6309738, 4108008, 6750967, 4116865, 1490390, 7171653, 4231873 ####[facility] [address] [place] [address] Potassium [Moles/Vol] 4.0 mmol/L Normal 3.5-5.3 [facility] Comment on above: Performed By: #### 1 0648312, 1825933, 9169252, 5072512, 1970461, 1314301, 4868653 ####[facility] [address] [place] [address] Sodium [Moles/Vol] 141 mmol/L Normal 135-145 [facility] Comment on above: Performed By: #### 1 2277085, 6238638, 6333957, 1435742, 0494893, 9837178, 9826117 ####[facility] [address] [place] [address] Urea nitrogen [Mass/Vol] 13 mg/dL Normal 5-21 [facility] Comment on above: Performed By: #### 1 2910778, 6310744, 1762633, 6486632, 0309608, 1044654, 2284665 ####[facility] [address] [place] [address] Urea nitrogen/Creatinine [Mass ratio] 13 No Units Normal 10-20 [facility] Comment on above: Performed By: #### 1 9509869, 7818603, 9292917, 3589168, 6754423, 7171429, 4296551 ####[facility] [address] [place] [address] CBC w/ Auto Diffon 3 Erythrocyte distribution width (RBC) [Ratio] 13.1 % Normal 10.9-14.2 [facility] Comment on above: Performed By: #### 1 0672039, 0164948, 2597376, 9411502, 4997370, 3813053, 6242963 ####[facility] [address] [place] [address] Hematocrit (Bld) [Volume fraction] 28.1 % Low 34.0-46.0 [facility] Comment on above: Performed By: #### 1 1748682, 9412181, 6958297, 7178223, 7826498, 8812709, 2056906 ####[facility] [address] [place] [address] Hemoglobin (Bld) [Mass/Vol] 9.6 g/dL Low 12.0-16.0 [facility] Comment on above: Performed By: #### 1 9155604, 0618342, 0451678, 4326798, 1785097, 0063511, 5522828 ####[facility] [address] [place] [address] MCH (RBC) [Entitic mass] 30.3 pg Normal 27.0-34.0 [facility] Comment on above: Performed By: #### 1 4195374, 3119854, 5592904, 6671910, 0207423, 9835209, 9576357 ####[facility] [address] [place] [address] MCHC (RBC) [Mass/Vol] 34.0 g/dL Normal 31.4-36.0 [facility] Comment on above: Performed By: #### 1 2078532, 6948387, 6758019, 7177080, 4878531, 6179922, 8594306 ####[facility] [address] [place] [address] MCV (RBC) [Entitic vol] 89.1 fL Normal 80.0-100.0 [facility] Comment on above: Performed By: #### 1 3130320, 9062825, 7232356, 6704735, 0066418, 6658062, 3846921 ####[facility] [address] [place] [address] Platelet mean volume (Bld) [Entitic vol] 8.7 fL Normal 6.4-10.8 [facility] Comment on above: Performed By: #### 1 2383017, 4958567, 5515061, 4427253, 7323761, 7385613, 2546287 ####[facility] [address] [place] [address] Platelets (Bld) [#/Vol] 91.0 E9/L Low 150.0-500.0 [facility] Comment on above: Result Comment: Slid e reviewed by TIFFANY 11/25/2022 07:41:07 EDT.Platelet count verified using smear estimate Performed By: #### 1 9766253, 0443252, 9018133, 8141299, 3587666, 7471090, 4191817 ####[facility] [address] [place] [address] RBC (Bld) [#/Vol] 3.2 E12/L Low 4.3-5.9 [facility] Comment on above: Performed By: #### 1 7672646, 8046250, 2785419, 4388422, 9264473, 9297496, 9579045 ####[facility] [address] [place] [address] WBC corrected for nucl RBC Auto (Bld) [#/Vol] 4.8 E9/L Normal 4.0-11.0 [facility] Comment on above: Performed By: #### 1 4657067, 2420119, 3965603, 7791027, 4871591, 5168852, 2754531 ####[facility] [address] [place] [address] CBC w/Indiceson 11-25-2022 Erythrocyte distribution width (RBC) [Ratio] 13.0 % Normal 10.9-14.2 [facility] Comment on above: Performed By: #### 2 339529 ####[facility] [address] [place] [address] Hematocrit (Bld) [Volume fraction] 28.2 % Low 34.0-46.0 [facility] Comment on above: Performed By: #### 2 558215 ####[address] [address] Hemoglobin (Bld) [Mass/Vol] 9.2 g/dL Low 12.0-16.0 [facility] Comment on above: Performed By: #### 2 120238 ####[facility] [address] [place] [address] MCH (RBC) [Entitic mass] 29.5 pg Normal 27.0-34.0 [facility] Comment on above: Performed By: #### 2 028775 ####[address] [address] MCHC (RBC) [Mass/Vol] 32.7 g/dL Normal 31.4-36.0 [facility] Comment on above: Performed By: #### 2 567057 ####[facility] [address] [place] [address] MCV (RBC) [Entitic vol] 90.4 fL Normal 80.0-100.0 [facility] Comment on above: Performed By: #### 2 491519 ####[facility] [address] [place] [address] Platelet mean volume (Bld) [Entitic vol] 9.1 fL Normal 6.4-10.8 [facility] Comment on above: Performed By: #### 2 375920 ####[facility] [address] [place] [address] Platelets (Bld) [#/Vol] 128.0 E9/L Low 150.0-500.0 [facility] Comment on above: Performed By: #### 2 237989 ####[facility] [address] [place] [address] RBC (Bld) [#/Vol] 3.1 E12/L Low 4.3-5.9 [facility] Comment on above: Performed By: #### 2 222646 ####[facility] [address] [place] [address] WBC corrected for nucl RBC Auto (Bld) [#/Vol] 11.7 E9/L High 4.0-11.0 [facility] Comment on above: Performed By: #### 2 601289 ####[facility] [address] [place] [address] CHEMISTRYOrdered By: SYSTEM SYSTEM on 11-25-2022 Calcium [Mass/Vol] 8.6 mg/dL Low 8.9 - 11. 1 mg/dL [facility] Glucose [Mass/Vol] 98 mg/dL Normal 55 - 199 mg/dL [facility] Remisol Iron [Mass/Vol] 42 ug/dL Normal 35 [...] (U) Negative (11/25/22 3:09 AM) Normal Negative [facility] Remisol Capillary Glucose POCon 10-30 Glucose [Mass/Vol] 127 mg/dL High 55-99 [facility] Comment on above: Result Comment: No C overage Given Performed By: #### 2 32638575 ####[facility] [address] [place] [address] Glucose [Mass/Vol] 88 mg/dL Normal 55-99 [facility] Comment on above: Performed By: #### 2 76577077 ####[facility] [address] [place] [address] Glucose [Mass/Vol] 87 mg/dL Normal 55-99 [facility] Comment on above: Result Comment: Fausto CHAUDHARY Performed By: #### 2 94033185 ####[facility] [address] [place] [address] Glucose [Mass/Vol] 98 mg/dL Normal 55-99 [facility] Comment on above: Result Comment: Fausto CHAUDHARY Performed By: #### 2 40256840 ####[facility] [address] [place] [address] Glucose [Mass/Vol] 108 mg/dL High 55-99 [facility] Comment on above: Result Comment: Fausto CHAUDHARY Performed By: #### 2 15307154 ####[facility] [address] [place] [address] Consent for Procedure/Surger yon 11-25-2022 Consent for Procedure/Surgery [id number]:127 Normal [facility] Ferritinon 11-25-2022 Ferritin [Mass/Vol] 51 ng/mL Normal 11-307 [facility] Comment on above: Result Comment: NORM ALS MEN <30 YRS 16-132 ng/mL MEN >30 YRS 8-338 ng/mL WOMEN (PREMEN) 6-104 ng/mL WOMEN (POSTMEN) 12-210 ng/mL Performed By: #### 2 410799, 2890043, 2932176, 5814479, 6242657, 8372938, 15534738, 23311718, 6783936 ####[facility] [address] [place] [address] Folateon 11-25-2022 Folate [Mass/Vol] 5.4 ng/mL Low >=6.7 [facility] Comment on above: Performed By: #### 2 397110, 7054049, 6378167, 8520443, 2220851, 1306900, 45907843, 71008579, 7790703 ####[facility] [address] [place] [address] AhfF3cth 11-25-2022 HbA1c (Bld) [Mass fraction] 6.3 % High <=5.9 [facility] Comment on above: Performed By: #### 7 [id number], 1781026, 6609125, 13867343, 6770369, 5136965, 7065014, 6875318, 55420926, 2253161, 84330245 ####[facility] [address] [place] [address] Insurance Correspondence Off iceon 11-25-2022 Insurance Correspondence Office [id number]:127 Normal [facility] Interdisciplinary Note - Hardeep e Manageron 11-25-2022 Interdisciplinary Note - Outside Plant Engineer [facility] Comment on above: Result Comment: Elec tronically Signed By: Radha Parbhakar\.br\Date and Time Signed: 11/25/22 12:03 EDT Ironon 11-25-2022 Iron [Mass/Vol] 42 microgram/dL Normal 35-153 [facility] Comment on above: Order Comment: Iron order added by Discern Rule: gl_ftmc_add_iron_trans . Performed By: #### 1 3388722, 3905671, 2548462, 0246102, 5490401, 2849438, 7535634 ####[facility] [address] [place] [address] Iron Saturationon 11-25-2022 Iron binding capacity [Mass/Vol] 260 microgram/dL Normal 250-400 [facility] Comment on above: Performed By: #### 1 6051194, 5694178, 5465197, 1024041, 0759200, 8822180, 9672767 ####[address] [place] [address] Iron saturation [Mass fraction] 16 % Low 20-50 [facility] Comment on above: Performed By: #### 1 8863182, 2200175, 7429939, 7701190, 9694253, 5164596, 2337037 ####[address] [place] [address] Main OR PACU I Recordon 10-30 Main OR PACU I Record Normal [facility] Main OR Preoperative Recordo n 11-25-2022 Main OR Preoperative Record Normal [facility] Message from Medicareon 10-30 Message from Medicare [id number]:127 Normal [facility] Monitor Recordon 11-25-2022 Monitor Record [id number]:127 Normal [facility] Monitor Record [id number]#1.00CD:127 Normal [facility] Monitor Record [id number]#1.00CD:127 Normal [facility] Monitor Record [id number]#1.00CD:127 Normal [facility] Operative Reporton 3 Operative Report Normal [facility] Comment on above: Result Comment: Elec tronically Signed By: Joaquim Rice DO\.br\Date and Time Signed: 11/25/22 17:00 EDT Outpatient Surgery Discharge Instructionon 11-25-2022 Outpatient Surgery Discharge Instruction Normal [facility] Progress Note-Physicianon Progress Note-Physician Normal F [facility] Comment on above: Result Comment: Elec tronically Signed By: Anu MANZANO\.br\Date and Time Signed: 11/25/22 14:33 EDT\.br\Electronically Co-Signed By: Nesha SHANKAR MD\.br\Date and Time Co-Signed: 11/25/22 14:49 EDT Transferrinon 11-25-2022 Transferrin [Mass/Vol] 186 mg/dL Low 200-370 [facility] Comment on above: Order Comment: Trans micheline order added by Discern Rule: gl_ft_add_iron_trans . Performed By: #### 1 8523038, 7606438, 3835593, 0567215, 6283110, 2717569, 4341579 ####[facility] [address] [place] [address] U Drug Screenon 11-25-2022 Opiates Screen Ql (U) Positive Abnormal Negative Fis [facility] Comment on above: Result Comment: Nega tive Cutoff: <300 ng/mL Performed By: #### 2 897913 ####[facility] [address] [place] [address] Amphetamines Screen method >1000 ng/mL Ql (U) Negative Normal Negative [facility] Comment on above: Result Comment: Nega tive Cutoff: <1000 ng/mL Performed By: #### 2 612305 ####[facility] [address] [place] [address] Barbiturates Screen Ql (U) Negative Normal Negative [facility] Comment on above: Result Comment: Nega tive Cutoff: <200 ng/mL Performed By: #### 2 196446 ####[facility] [address] [place] [address] Benzodiazepines Ql (U) Negative Normal Negative [facility] Comment on above: Result Comment: Nega tive Cutoff: <200 ng/mL Performed By: #### 2 144436 ####[facility] [address] [place] [address] Cocaine Ql (U) Negative Normal Negative [facility] Comment on above: Result Comment: Nega tive Cutoff: <300 ng/mL Performed By: #### 2 881039 ####[facility] [address] [place] [address] Phencyclidine Screen method >25 ng/mL Ql (U) Negative Normal Negative [facility] Comment on above: Result Comment: Nega tive Cutoff: <25 ng/mLThese drug screen results are to be used for medical (i.e., treatment) purposes only. Unconfirmed drug screening results must not be used for non-medical purposes (e.g., employment testing, legal testing). Performed By: #### 2 586107 ####[facility] [address] [place] [address] Tetrahydrocannabinol Screen method >50 ng/mL Ql (U) Negative Normal Negative [facility] Comment on above: Result Comment: Nega tive Cutoff: <50 ng/mL Performed By: #### 2 248840 ####[facility] [address] [place] [address] UA With Cult Reflexon 2022 Bilirubin Ql (U) Negative Normal Negative [facility] Comment on above: Performed By: #### 1 9422991 ####[facility] [address] [place] [address] Clarity (U) CLEAR Normal Clear [facility] Comment on above: Performed By: #### 1 2705639 ####[facility] [address] [place] [address] Color (U) YELLOW Normal Yellow [facility] Comment on above: Performed By: #### 1 2684299 ####[facility] [address] [place] [address] Epithelial cells.squamous LM.HPF (Urine sed) [#/Area] 0-2 Normal 0-2 [facility] Comment on above: Performed By: #### 1 1864976 ####[facility] [address] [place] [address] Glucose Test strip (U) [Mass/Vol] Negative Normal Negative [facility] Comment on above: Performed By: #### 1 8631783 ####[address] [address] Hemoglobin Ql (U) Negative Normal Negative [facility] Comment on above: Performed By: #### 1 0965085 ####[address] [address] Ketones (U) [Mass/Vol] Negative Normal Negative [facility] Comment on above: Performed By: #### 1 0969996 ####[address] [address] Bonham.plasma/Bonham.R BC (Bld) [Mass ratio] 0-3 Normal 0-3 [facility] Comment on above: Performed By: #### 1 9520429 ####[address] [address] Nitrite Ql (U) Negative Normal Negative [facility] Comment on above: Performed By: #### 1 6803307 ####[address] [address] pH (U) 6.0 [pH] Invalid Interpretation Code 5.0-9.0 [facility] Comment on above: Performed By: #### 1 1747141 ####[address] [address] Protein (U) [Mass/Vol] Negative Normal Negative [facility] Comment on above: Performed By: #### 1 1380230 ####[address] [address] Specific gravity (U) [Rel density] 1.010 Invalid Interpretation Code 1.005-1.030 [facility] Comment on above: Performed By: #### 1 9582532 ####[facility] [address] [place] [address] Type of Urine collection method Clean Catch Normal [facility] Comment on above: Performed By: #### 1 0782159 ####[facility] [address] Urobilinogen Qn (U) 0.2 {Papa'U}/dL Normal 0.0-1.0 [facility] Comment on above: Performed By: #### 1 1990790 ####[facility] [address] [place] [address] WBC Auto Ql (U) TRACE Abnormal Negative [facility] Comment on above: Performed By: #### 1 2909716 ####[facility] [address] [place], [place] [address] WBC LM.HPF (Urine sed) [#/Area] 0-5 Normal 0-5 [facility] Comment on above: Performed By: #### 1 0443116 ####[facility] [address] [place], [place] [address] URINALYSISOrdered By: David Gasca on 11-25-2022 Bilirubin Ql (U) Negative (11/25/22 3:09 AM) Normal Negative FT UA Auto SS Clarity (U) Clear (11/25/22 3:09 AM) Normal Clear FT UA Auto SS Color (U) Yellow (11/25/22 3:09 AM) Normal Yellow [facility] UA Auto SS Epithelial cells.squamous LM.HPF (Urine sed) [#/Area] 0-2 /HPF Normal 0-2/HPF [facility] UA Aut o SS Glucose Test strip (U) [Mass/Vol] Negative (11/25/22 3:09 AM) Normal Negative [facility] UA Auto SS Hemoglobin Ql (U) Negative (11/25/22 3:09 AM) Normal Negative [facility] UA Auto SS Ketones (U) [Mass/Vol] Negative (11/25/22 3:09 AM) Normal Negative [facility] UA Auto SS Bonham.plasma/Bonham.R BC (Bld) [Mass ratio] 0-3 /HPF Normal 0-3/HPF [facility] UA Au to SS Nitrite Ql (U) Negative (11/25/22 3:09 [...] [facility] UA Auto SS Urobilinogen Qn (U) 0.0580931 {Papa'U}/dL Normal 0.0 - 1.0 EU/dL [facility] UA Auto SS WBC Auto Ql (U) Trace *ABN* (11/25/22 3:09 AM) Invalid Interpretation Code Negative [facility] UA Auto SS WBC LM.HPF (Urine sed) [#/Area] 0-5 /HPF Normal 0-5/HPF [facility] UA Auto SS Vit B12on 11-25-2022 Cobalamin (Vitamin B12) [Mass/Vol] 212 pg/mL Normal 50-1500 [facility] Comment on above: Performed By: #### 2 185219, 9617786, 7914445, 6257620, 5551506, 8057966, 63661627, 78942967, 7392690 ####[facility] [address] [place] [address] XR Hip 1 View Right + Pelvis on 11-25-2022 XR Hip 1 View Right + Pelvis Normal [facility] eGFRon 11-25-2022 GFR/1.73 sq M.predicted among non-blacks MDRD (S/P/Bld) [Vol rate/Area] 61 mL/min/1.73 m2 Normal >=59 [facility] Comment on above: Order Comment: Order added by Discern Expert. Result Comment: Field Professional marquez kidney disease could be indicated at eGFR's of less than 60 mL/min/1.73m2. Kidney failure is indicated at less than 15 mL/min/1.73m2. Performed By: #### 1 9143247, 8690051, 0782771, 8631080, 7698496, 8479437, 1473353 ####[facility] [address] [place] [address] ABO/Rhon 11-24-2022 ABO/Rh Positive Invalid Interpretation Code [facility] Comment on above: Performed By: #### 2 502535, 99696081, 68371143, 19369893 ####[facility] [address] [place] [address] ABO/Rh History Checkon 11-24 ABO/Rh History Check Verified Hx Blood Type Normal [facility] Comment on above: Performed By: #### 2 177963, 57035239, 94961989, 21259101 ####[address] [address] ABSCon 11-24-2022 ABSC Gel Interp Negative Normal [facility] Comment on above: Performed By: #### 2 521059, 41943466, 54900719, 72780566 ####[facility] [address] [place] [address] Auto Diffon 11-24-2022 Basophils/100 WBC (Bld) 0.3 % Normal 0.0-2.0 [facility] Comment on above: Order Comment: Order Added by Discern Expert. Performed By: #### 7 98278912, 4273696, 0756450, 72194496, 2113271, 2733838, 6087033, 6866860, 10956168, 6409548, 13478442 ####[facility] [address] [place] [address] Basophils/Leukocytes Auto (Bld) [Pure # fraction] 0.0 E9/L Normal 0.0-0.2 [facility] Comment on above: Order Comment: Order Added by Discern Expert. Performed By: #### 7 80836470, 2171618, 3756935, 15971300, 7061124, 5529489, 5510624, 7115250, 45001166, 6417759, 82043099 ####[facility] [address] [place] [address] Eosinophils/100 WBC (Bld) 3.2 % Normal 0.0-8.0 [facility] Comment on above: Order Comment: Order Added by Discern Expert. Performed By: #### 7 91266792, 8477075, 7263815, 79084876, 9520724, 7943004, 8053959, 3739624, 01930119, 0815752, 54045803 ####[address] [place] [address] Eosinophils/Leukocytes Auto (Bld) [Pure # fraction] 0.2 E9/L Normal 0.0-0.5 [facility] Comment on above: Order Comment: Order Added by Discern Expert. Performed By: #### 7 98685107, 3209933, 0316777, 43633991, 9989492, 3042849, 4022818, 4311018, 64537090, 2705910, 44456526 ####[address] [place] [address] Lymphocytes/100 WBC (Bld) 27.3 % Normal 14.0-50.0 [facility] Comment on above: Order Comment: Order Added by Discern Expert. Performed By: #### 7 47246308, 3863903, 8813015, 16610554, 1553431, 4784451, 5060392, 5476430, 44650303, 7346087, 17419983 ####[facility] [address] [place] [address] Lymphocytes/Leukocytes Auto (Bld) [Pure # fraction] 1.7 E9/L Normal 1.0-4.0 [facility] Comment on above: Order Comment: Order Added by Discern Expert. Performed By: #### 7 21842841, 8083510, 4147196, 70561528, 1275506, 2294839, 8169562, 9927769, 25973301, 4561340, 99054848 ####[facility] [address] [place] [address] Monocytes/100 WBC (Bld) 12.1 % Normal 4.0-14.0 [facility] Comment on above: Order Comment: Order Added by Discern Expert. Performed By: #### 7 59794469, 9598308, 1298075, 27582320, 6102379, 3740984, 9279818, 9408746, 62191231, 7827882, 27121169 ####[address] [place] [address] Monocytes/Leukocytes Auto (Bld) [Pure # fraction] 0.8 E9/L Normal 0.2-1.0 [facility] Comment on above: Order Comment: Order Added by Discern Expert. Performed By: #### 7 20773532, 7324858, 6743219, 70711181, 4624476, 0902447, 6733323, 0782593, 94797232, 6703034, 79736856 ####[address] [place] [address] Neutrophils/100 WBC (Bld) 57.1 % Normal 36.0-75.0 [facility] Comment on above: Order Comment: Order Added by Discern Expert. Performed By: #### 7 13997043, 8201707, 7505108, 86702787, 4254612, 0337716, 6121607, 9825725, 60598647, 6782147, 84265082 ####[address] [place] [address] Neutrophils/Leukocytes Auto (Bld) [Pure # fraction] 3.7 E9/L Normal 2.0-7.5 [facility] Comment on above: Order Comment: Order Added by Discern Expert. Performed By: #### 7 76961643, 6169088, 3495867, 67788820, 9183552, 0989035, 5963523, 0738178, 18549755, 8730835, 95944443 ####[address] [place] [address] BLOOD BANKOrdered By: David Gasca on 11-24-2022 ABO/Rh Interp Positive Invalid Interpretation Code [facility] BB Subsection ABSC Gel Interp Negative (11/24/22 12:57 AM) Normal [facility] BB Subsection BMPon 11-24-2022 Creatinine [Mass/Vol] 1.1 mg/dL Normal 0.5-1.3 [facility] Comment on above: Performed By: #### 7 55745783, 4988522, 8320346, 30963300, 8047991, 9915994, 7446374, 5011168, 28492451, 2390555, 13849556 ####[facility] [address] [place] [address] Urea nitrogen [Mass/Vol] 13 mg/dL Normal 5-21 [facility] Comment on above: Performed By: #### 7 22728424, 7594775, 0845373, 34334212, 4316347, 3871494, 0638768, 0234768, 00229014, 3115120, 70608027 ####[facility] [address] [place] [address] Urea nitrogen/Creatinine [Mass ratio] 12 No Units Normal 10-20 [facility] Comment on above: Performed By: #### 7 25120420, 3041368, 7635753, 74334917, 6659542, 3805350, 3293831, 9605990, 28917054, 1655978, 51945358 ####[facility] [address] [place] [address] Anion gap [Moles/Vol] 9 mmol/L Normal 6-16 [facility] Comment on above: Performed By: #### 7 74902544, 6080520, 5247894, 33048588, 5450564, 9478351, 1337099, 9857157, 75322077, 9237328, 90861873 ####[facility] [address] [place] [address] Calcium [Mass/Vol] 9.1 mg/dL Normal 8.9-11.1 [facility] Comment on above: Performed By: #### 7 03026633, 0542853, 7084334, 45454514, 0803015, 7173216, 5494612, 7883585, 19941892, 8458081, 35536828 ####[facility] [address] [place] [address] Chloride [Moles/Vol] 111 mmol/L Normal 101-111 [facility] Comment on above: Performed By: #### 7 13054580, 7840642, 5985108, 16348436, 8962562, 3539799, 6314267, 9620867, 84012677, 7458640, 62251546 ####[facility] [address] [place] [address] CO2 [Moles/Vol] 24 mmol/L Normal 21-31 [facility] Comment on above: Performed By: #### 7 82413131, 6622021, 0032564, 25365836, 0822404, 3043944, 9665820, 7400690, 67807746, 8345230, 79111582 ####[facility] [address] [place] [address] Glucose [Mass/Vol] 183 mg/dL Normal 55-199 [facility] Comment on above: Result Comment: If t his glucose result represents a fasting glucose, interpretation should refer to the following reference range: 55-99 mg/dL Performed By: #### 7 24019816, 6058328, 9931090, 63762271, 3884040, 2256568, 1354874, 7674524, 45537459, 6168752, 51507115 ####[facility] [address] [place] [address] Potassium [Moles/Vol] 3.7 mmol/L Normal 3.5-5.3 [facility] Comment on above: Performed By: #### 7 06607587, 5541605, 1633533, 94191269, 2861422, 8907550, 4571055, 8839412, 95711435, 3079910, 88304950 ####[facility] [address] [place] [address] Sodium [Moles/Vol] 140 mmol/L Normal 135-145 [facility] Comment on above: Performed By: #### 7 60981110, 4045031, 1496622, 73657584, 0036915, 3191595, 8967883, 0113473, 09867567, 3449545, 35899226 ####[address] [place] [address] Blood Bank ID#on 11-24-2022 BBID# [id number] Invalid Interpretation Code [facility] Comment on above: Performed By: #### 2 680795, 50879991, 16529198, 77640676 ####[address] [place] [address] CBC w/ Auto Diffon Erythrocyte distribution width (RBC) [Ratio] 13.4 % Normal 10.9-14.2 [facility] Comment on above: Performed By: #### 7 27235807, 2788723, 7481840, 44971430, 4039793, 0645155, 1077549, 0377752, 23118034, 8436640, 99575807 ####[address] [place] [address] Hematocrit (Bld) [Volume fraction] 32.8 % Low 34.0-46.0 [facility] Comment on above: Performed By: #### 7 90742026, 5021926, 6673058, 51150374, 5173285, 6640107, 1178695, 9744446, 50756191, 1094768, 39732227 ####[address] [place] [address] Hemoglobin (Bld) [Mass/Vol] 10.7 g/dL Low 12.0-16.0 [facility] Comment on above: Performed By: #### 7 06924749, 6024921, 0277525, 94988277, 3034045, 4236307, 3867091, 4840101, 25257757, 6469080, 49769407 ####[facility] [address] [place] [address] MCH (RBC) [Entitic mass] 29.2 pg Normal 27.0-34.0 [facility] Comment on above: Performed By: #### 7 85780067, 0011904, 5853800, 18587135, 7433087, 7076985, 1254249, 9577722, 68512161, 9797214, 76964596 ####[facility] [address] [place] [address] MCHC (RBC) [Mass/Vol] 32.7 g/dL Normal 31.4-36.0 [facility] Comment on above: Performed By: #### 7 05009082, 0081374, 4653755, 27131877, 4289458, 1150361, 9729195, 6495081, 60441612, 9250917, 32174175 ####[address] [place] [address] MCV (RBC) [Entitic vol] 89.2 fL Normal 80.0-100.0 [facility] Comment on above: Performed By: #### 7 91949206, 6261951, 1649922, 77215702, 1428414, 9267195, 5351755, 0393144, 54104039, 3652004, 05633362 ####[facility] [address] [place] [address] Platelet mean volume (Bld) [Entitic vol] 8.8 fL Normal 6.4-10.8 [facility] Comment on above: Performed By: #### 7 55836388, 6046732, 5386852, 76282599, 5075294, 6998022, 7231218, 6516089, 95394006, 6559356, 26469466 ####[facility] [address] [place] [address] Platelets (Bld) [#/Vol] 139.0 E9/L Low 150.0-500.0 [facility] Comment on above: Performed By: #### 7 41148549, 0520370, 3138796, 34328250, 4954923, 6560421, 9798764, 7585700, 83275112, 2034949, 19877197 ####[facility] [address] [place] [address] RBC (Bld) [#/Vol] 3.7 E12/L Low 4.3-5.9 [facility] Comment on above: Performed By: #### 7 10439258, 6795636, 6417974, 96856665, 7080153, 2085106, 8294114, 0913206, 31354477, 1352693, 77319208 ####[facility] [address] [place] [address] WBC corrected for nucl RBC Auto (Bld) [#/Vol] 6.4 E9/L Normal 4.0-11.0 [facility] Comment on above: Performed By: #### 7 03524788, 7925869, 8430676, 79391262, 8298178, 4866165, 8213946, 2840106, 16464408, 0379561, 89347718 ####[facility] [address] [place] [address] CHEMISTRYOrdered By: SYSTEM SYSTEM on 11-24-2022 Cobalamin (Vitamin B12) [Mass/Vol] 212 pg/mL Normal 50 - 1500 pg/mL [facility] Remisol Ferritin [Mass/Vol] 51 ng/mL Normal 11 - 307 ng/mL [facility] Remisol Folate [Mass/Vol] 5.4 ng/mL Low >=6.7ng/mL [...] 3.50 pg/mL Low 10.10 - 27.10 pg/mL [facility] Remisol TSH Qn 0.51 m[IU]/L Normal 0.34 - 5.60 mcIU/mL [facility] Remisol CHEMISTRYOrdered By: Sarthak Stock on 11-24-2022 HbA1c (Bld) [Mass fraction] 6.3 % High <=5.9% [facility] ChemAutoSS COAGULATIONOrdered By: David Gasca on 11-24-2022 aPTT Coag (PPP) [Time] 30.2 s Normal 25.1 - 36.5 second(s) [facility] Auto Coag INR Coag (PPP) [Relative time] 1.0 {INR} Invalid Interpretation Code [facility] Auto Coag PT Coag (PPP) [Time] 11.7 s Normal 9.4 - 1 2.5 second(s) [facility] Auto Coag CT Pelvis w/o Contraston CT Pelvis w/o Contrast Normal [facility] Capillary Glucose POCon 10-30 Glucose [Mass/Vol] 119 mg/dL High 55-99 [facility] Comment on above: Result Comment: Fausto CHAUDHARY Performed By: #### 2 61183166 ####[facility] [address] [place] [address] Glucose [Mass/Vol] 115 mg/dL High 55-99 [facility] Comment on above: Result Comment: Fausto CHAUDHARY Performed By: #### 2 31160319 ####[facility] [address] [place] [address] Glucose [Mass/Vol] 114 mg/dL High -[address] [place] [address] Comment on above: Result Comment: Fausto CHAUDHARY Performed By: #### 2 85709540 ####[facility] [address] [place] [address] Consent for Treatmenton 10-30 Consent for Treatment [id number]:127 Normal [facility] Consultation Noteon 11-25-19 Consultation Note Normal [facility] Comment on above: Result Comment: Elec tronically Signed By: Joaquim Rice DO.deng\Date and Time Signed: 11/24/22 17:19 EDT ED Clinical Summaryon 2022 ED Clinical Summary Normal [facility] ED Note-Physicianon 08-27-20 23 ED Note-Physician Normal [facility] Comment on above: Result Comment: Elec tronically Signed By: Michelle DUVALL, Hari Devries\.br\Date and Time Signed: 11/24/22 03:32 EDT ED Patient Education Noteon 11-24-2022 ED Patient Education Note Normal [facility] ED Patient Summaryon 023 ED Patient Summary Normal [facility] ED Traumaon 11-24-2022 ED Trauma [id number]:127 Normal [facility] Ethanolon 11-24-2022 Ethanol [Mass/Vol] mg/dL Normal <=7 [facility] Comment on above: Performed By: #### 2 647734 ####[facility] [address] [place] [address] Free T4on 11-24-2022 Free T4 [Mass/Vol] 1.23 ng/dL Normal 0.58-1.64 [facility] Comment on above: Order Comment: Free T4 added by Discern Rule due to a TSH result of <0.34 or >5.60. Performed By: #### 2 396946, 2552941, 6996710, 7716470, 6541806, 3339360, 82260140, 69935865, 3798083 ####[facility] [address] [place] [address] HEMATOLOGYOrdered By: Kirstin King on 11-24-2022 Reticulocytes/100 RBC (Bld) 0.9 % Normal 0.5 - 1.5 % [facility] HemeAutoSS Comment on above: Result Comment: This Reticulocyte Count Has Been Corrected For Anemia Hep Func Panelon 11-24-2022 Albumin [Mass/Vol] 3.6 g/dL Normal 3.3-5.0 [facility] Comment on above: Performed By: #### 7 [id number], 3257069, 4694791, 72482141, 7885453, 8505738, 1943473, 2765433, 35564782, 7501175, 76512474 ####[facility] [address] [place] [address] Albumin/Globulin (S) [Mass conc ratio] 1.1 Normal 1.1-2.2 [facility] Comment on above: Performed By: #### 7 58734400, 6923591, 2890773, 03912481, 5757297, 1294901, 3587366, 7864104, 97179069, 3311393, 47627957 ####[facility] [address] [place] [address] ALP [Catalytic activity/Vol] 61 Int._Unit/L Normal 21-98 [facility] Comment on above: Performed By: #### 7 17046744, 3869228, 7583584, 09003923, 8523244, 8175844, 9604817, 6027751, 39377912, 9418806, 95579261 ####[address] [address] ALT No additional P-5'-P [Catalytic activity/Vol] 15 Int._Unit/L Normal 6-46 [facility] Comment on above: Performed By: #### 7 95972355, 3400795, 8164985, 34622552, 8589432, 6326294, 8492539, 4773130, 45352491, 9255047, 84787744 ####[facility] [address] [place] [address] AST [Catalytic activity/Vol] 19 Int._Unit/L Normal 5-43 [facility] Comment on above: Performed By: #### 7 12917132, 0654279, 2647384, 10009193, 7746399, 9349219, 1058210, 2311260, 15783531, 7434077, 11803383 ####[facility] [address] [place] [address] Bilirubin [Mass/Vol] 0.6 mg/dL Normal 0.0-1.1 [facility] Comment on above: Performed By: #### 7 73966620, 2643483, 6556528, 44434504, 8725900, 5117465, 5548626, 7731136, 64507283, 1395845, 20409487 ####[facility] [address] [place] [address] Bilirubin.direct [Mass/Vol] 0.1 mg/dL Normal 0.1-0.4 [facility] Comment on above: Performed By: #### 7 67628504, 7290307, 1451145, 96484427, 3454399, 4062513, 5017407, 0549745, 77174697, 2318117, 37807006 ####[facility] [address] [place] [address] Bilirubin.indirect [Mass or moles/Vol] 0.5 mg/dL Normal 0.1-0.9 [facility] Comment on above: Performed By: #### 7 16943458, 5550412, 3174476, 72846421, 1209485, 0715557, 2347100, 8964912, 85764674, 1278142, 16811674 ####[address] [place] [address] Globulin (S) [Mass/Vol] 3.2 g/dL Normal 1.4-4.0 [facility] Comment on above: Performed By: #### 7 22040393, 3369372, 9524355, 77696844, 4551430, 6134488, 2263191, 9691695, 31188326, 4757941, 63627423 ####[facility] [address] [place] [address] Protein [Mass/Vol] 6.8 g/dL Normal 6.0-7.8 [facility] Comment on above: Performed By: #### 7 25584679, 3147022, 9622302, 74905982, 3338663, 2768823, 7876949, 2714153, 94419780, 4225694, 85502077 ####[facility] [address] [place] [address] Interdisciplinary Note - Hardeep e Manageron 11-24-2022 Interdisciplinary Note - Outside Plant Engineer Normal [facility] Comment on above: Result Comment: Elec tronically Signed By: Kirstin Meyer.br\Date and Time Signed: 11/24/22 12:23 EDT Ironon 11-24-2022 Iron [Mass/Vol] 29 microgram/dL Low 35-153 [facility] Comment on above: Performed By: #### 2 276212, 9573303, 3318509, 8120195, 8206352, 9897139, 06770383, 96511693, 9035227 ####[facility] [address] [place] [address] LDHon 11-24-2022 LDH [Catalytic activity/Vol] 158 Int._Unit/L Normal 93-218 [facility] Comment on above: Performed By: #### 2 053858, 0144487, 2095028, 8467255, 2830527, 0282971, 53307803, 98535074, 6885941 ####[facility] [address] [place] [address] Lactic Acidon 11-24-2022 Lactate [Mass/Vol] 1.1 mmol/L Normal 0.5-2.2 [facility] Comment on above: Performed By: #### 7 13792391, 4596977, 4256253, 21258982, 7980236, 0661682, 0119821, 8509668, 91733904, 1870298, 37061551 ####[facility] [address] [place] [address] Lipase Levelon 11-24-2022 Lipase [Catalytic activity/Vol] 32 U/L Normal 13-58 [facility] Comment on above: Performed By: #### 7 06932763, 1652660, 0613497, 68896001, 0326907, 6832752, 0910704, 4912368, 43006725, 1466193, 66985675 ####[facility] [address] [place] [address] Monitor Recordon 11-24-2022 Monitor Record [id number]#1.00CD:127 Normal [facility] Monitor Record [id number]#1.00CD:127 Normal [facility] Monitor Record [id number]#1.00CD:127 Normal [facility] PT & PTTon 11-24-2022 aPTT Coag (PPP) [Time] 30.2 second(s) Normal 25.1-36.5 [facility] Comment on above: Result Comment: Para meter [...] the same coagulation reagent and instrumentation as [facility]. Currently there are no coagulation studies available worldwide for children to 14 days, and no normal ranges. Heparin therapeutic range (represented by Anti-Factor Xa activity of 0.2 - 0.4 U/mL) corresponds to PTT of 56.6 - 109.0 sec. Performed By: #### 7 31503449, 7952317, 0206227, 79928677, 9580310, 1456782, 2680312, 3776688, 28494664, 4579122, 98709185 ####[facility] [address] [place] [address] INR Coag (PPP) [Relative time] 1.0 {INR} Invalid Interpretation Code [facility] Comment on above: Result Comment: INR results are specifically intended to assess patients stabilized on long-term Anticoagulation therapy suggested INR?s ?Less Intensive Anticoagulation? 2.0 ? 3.0Conventional Range 3.0 ? 4.5 Performed By: #### 7 77922982, 2579702, 8320955, 30548368, 2308077, 9637040, 8169005, 3980589, 33418774, 9999650, 75454423 ####[facility] [address] [place] [address] PT Coag (PPP) [Time] 11.7 second(s) Normal 9.4-12.5 [facility] Comment on above: Result Comment: 15 d [...] the same coagulation reagent and instrumentation as [facility]. Currently there are no coagulation studies available worldwide for children to 14 days, and no normal ranges. Performed By: #### 7 44968165, 6542629, 7775737, 43310417, 7169442, 4024306, 9670298, 2908121, 64733401, 1365509, 04260240 ####[facility] [address] [place] [address] Pre-Arrival Noteon Pre-Arrival Note Normal [facility] Progress Note-Physicianon Progress Note-Physician Normal [facility] Comment on above: Result Comment: Elec tronically Signed By: Anu MANZANO\.br\Date and Time Signed: 11/24/22 14:14 EDT\.br\Electronically Co-Signed By: Cordell Grossman DO.br\Date and Time Co-Signed: 11/24/22 15:36 EDT RAD - Preliminary Cat Scan R eporton 11-24-2022 RAD - Preliminary Cat Scan Report [id number]#1.00CD:127 Normal [facility] Retic Counton 11-24-2022 Reticulocytes/100 RBC (Bld) 0.9 % Normal 0.5-1.5 [facility] Comment on above: Result Comment: This Reticulocyte Count Has Been Corrected For Anemia Performed By: #### 2 753411, 4021934, 1240792, 0286569, 1155572, 1130683, 53983252, 54308744, 2954153 ####[facility] [address] [place] [address] TIBC Calculatedon 11-24-2022 Iron binding capacity [Mass/Vol] 313 microgram/dL Normal 250-400 [facility] Comment on above: Order Comment: Becka nt receiving patient care, will check back later. [email or web address] 11/24/2022 15:04:45 EDT Performed By: #### 2 408684, 6174150, 6760291, 3481417, 2410491, 4156761, 33237694, 11378581, 6207582 ####[facility] [address] [place] [address] Transferrin [Mass/Vol] 224 mg/dL Normal 200-370 [facility] Comment on above: Order Comment: Becka nt receiving patient care, will check back later. [id number] 11/24/2022 15:04:45 EDT Performed By: #### 2 532526, 5161531, 6789153, 5128529, 5276229, 3243837, 04227838, 88153803, 5986857 ####[facility] [address] [place] [address] TSH With T4fr Reflexon 11-24 TSH Qn 0.25 m[IU]/L Low 0.34-5.60 [facility] Comment on above: Performed By: #### 2 598467, 9092831, 3781083, 1681663, 2822239, 8611613, 30197317, 46983845, 4887956 ####[facility] [address] [place] [address] TSH Qn 0.51 m[IU]/L Normal 0.34-5.60 [facility] Comment on above: Performed By: #### 7 45864115, 9446270, 9807218, 01833697, 3577115, 0480747, 5732420, 2646418, 03460793, 9922697, 30302365 ####[facility] [address] [place] [address] Troponinon 11-24-2022 Troponin I.cardiac [Mass/Vol] 3.50 pg/mL Low 10.10-27.10 [facility] Comment on above: Result Comment: The 95% CI (Confidence Interval) PPV (Positive Predictive Value) for myocardial infarction in females is 38 pg/mL, in males 51 pg/mL. The results should be used in conjunction with clinical conditions of myocardial infarction.(Access High Sensitivity Troponin I Instructions For Use, [email or web address], October 2017) Performed By: #### 7 68917381, 9365827, 2137529, 06181353, 4479387, 2725741, 0725042, 2398618, 63142619, 9597033, 67173233 ####[facility] [address] [place] [address] XR Chest Single Viewon 11-24 XR Chest Single View Normal [facility] XR Hip 1 View Right + Pelvis on 11-24-2022 XR Hip 1 View Right + Pelvis Normal [facility] eGFRon 11-24-2022 GFR/1.73 sq M.predicted among non-blacks MDRD (S/P/Bld) [Vol rate/Area] 55 mL/min/1.73 m2 Low >=59 [facility] Comment on above: Order Comment: Order added by Discern Expert. Result Comment: Field Professional marquez kidney disease could be indicated at eGFR's of less than 60 mL/min/1.73m2. Kidney failure is indicated at less than 15 mL/min/1.73m2. Performed By: #### 7 67315910, 4674971, 0742854, 57890561, 7756220, 1481704, 4224938, 1246227, 46549144, 7339204, 17360800 ####[address] [place] [address] Auto Diffon 10-02-2022 Basophils/100 WBC (Bld) 0.5 % Normal 0.0-2.0 [facility] Comment on above: Order Comment: Order Added by Discern Expert. Performed By: #### 2 456508, 4614483, 3069090, 5142901, 6859348, 46106278 ####[address] [address] Basophils/Leukocytes Auto (Bld) [Pure # fraction] 0.0 E9/L Normal 0.0-0.2 [facility] Comment on above: Order Comment: Order Added by Discern Expert. Performed By: #### 2 830797, 5638254, 9524524, 5768347, 4493648, 31506256 ####[address] [address] Eosinophils/100 WBC (Bld) 1.2 % Normal 0.0-8.0 [facility] Comment on above: Order Comment: Order Added by Discern Expert. Performed By: #### 2 909054, 2039708, 5840259, 6401275, 3521082, 71231995 ####[address] [address] Eosinophils/Leukocytes Auto (Bld) [Pure # fraction] 0.1 E9/L Normal 0.0-0.5 [facility] Comment on above: Order Comment: Order Added by Discern Expert. Performed By: #### 2 095418, 7272823, 9018962, 1872560, 2179409, 62575299 ####[address] [address] Lymphocytes/100 WBC (Bld) 19.9 % Normal 14.0-50.0 [facility] Comment on above: Order Comment: Order Added by Discern Expert. Performed By: #### 2 053130, 4175017, 2264100, 7164989, 5240493, 56911167 ####[address] [place] [address] Lymphocytes/Leukocytes Auto (Bld) [Pure # fraction] 1.5 E9/L Normal 1.0-4.0 [facility] Comment on above: Order Comment: Order Added by Discern Expert. Performed By: #### 2 011822, 2803034, 3056950, 7878243, 1981797, 30035645 ####[address] [address] Monocytes/100 WBC (Bld) 12.7 % Normal 4.0-14.0 [facility] Comment on above: Order Comment: Order Added by Discern Expert. Performed By: #### 2 409633, 4216088, 8480257, 7523812, 9434454, 38210058 ####[address] [address] Monocytes/Leukocytes Auto (Bld) [Pure # fraction] 1.0 E9/L Normal 0.2-1.0 [facility] Comment on above: Order Comment: Order Added by Discern Expert. Performed By: #### 2 145167, 2712055, 8421457, 9654364, 4088815, 63575340 ####[address] [address] Neutrophils/100 WBC (Bld) 65.7 % Normal 36.0-75.0 [facility] Comment on above: Order Comment: Order Added by Discern Expert. Performed By: #### 2 717768, 3968631, 7886726, 1057619, 6550608, 10300169 ####[address] [place] [address] Neutrophils/Leukocytes Auto (Bld) [Pure # fraction] 5.1 E9/L Normal 2.0-7.5 [facility] Comment on above: Order Comment: Order Added by Discern Expert. Performed By: #### 2 044523, 3420576, 9070268, 4587524, 2000327, 32003795 ####[address] [place] [address] BMPon 10-02-2022 Creatinine [Mass/Vol] 1.1 mg/dL Normal 0.5-1.3 [facility] Comment on above: Performed By: #### 2 847289, 1671301, 8718819, 3661254, 3010834, 12216451 ####[facility] [address] [place] [address] Urea nitrogen [Mass/Vol] 16 mg/dL Normal 5-21 [facility] Comment on above: Performed By: #### 2 602526, 8686559, 6493432, 2178646, 9544026, 13863223 ####[facility] [address] [place] [address] Urea nitrogen/Creatinine [Mass ratio] 14 No Units Normal 10-20 [facility] Comment on above: Performed By: #### 2 070630, 9580766, 4374236, 8406177, 9162349, 04490772 ####[facility] [address] [place] [address] Anion gap [Moles/Vol] 15 mmol/L Normal 6-16 [facility] Comment on above: Performed By: #### 2 921383, 1346313, 8566648, 3856911, 3562230, 17069168 ####[facility] [address] [place] [address] Calcium [Mass/Vol] 9.7 mg/dL Normal 8.9-11.1 [facility] Comment on above: Performed By: #### 2 137234, 5994749, 0108588, 6033920, 5271136, 30921454 ####[facility] [address] [place] [address] Chloride [Moles/Vol] 107 mmol/L Normal 101-111 [facility] Comment on above: Performed By: #### 2 501272, 3666172, 8658618, 6705046, 5636939, 70141719 ####[facility] [address] [place] [address] CO2 [Moles/Vol] 19 mmol/L Low 21-31 [facility] Comment on above: Performed By: #### 2 410254, 9428321, 2763393, 1289168, 0778182, 10548612 ####[facility] [address] [place] [address] Glucose [Mass/Vol] 186 mg/dL Normal 55-199 [facility] Comment on above: Result Comment: If t his glucose result represents a fasting glucose, interpretation should refer to the following reference range: 55-99 mg/dL Performed By: #### 2 607165, 4459192, 6333974, 2573896, 6756271, 43718651 ####[facility] [address] [place] [address] Potassium [Moles/Vol] 3.1 mmol/L Low 3.5-5.3 [facility] Comment on above: Performed By: #### 2 619287, 1341957, 0700229, 2436947, 5205345, 45352371 ####[facility] [address] [place] [address] Sodium [Moles/Vol] 138 mmol/L Normal 135-145 [facility] Comment on above: Performed By: #### 2 490060, 8641716, 3257346, 5067451, 8369278, 53161372 ####[facility] [address] [place] [address] CBC w/ Auto Diffon 3 Erythrocyte distribution width (RBC) [Ratio] 13.4 % Normal 10.9-14.2 [facility] Comment on above: Performed By: #### 2 825711, 5258005, 8520538, 7505657, 5499641, 75415016 ####[facility] [address] [place] [address] Hematocrit (Bld) [Volume fraction] 38.1 % Normal 34.0-46.0 [facility] Comment on above: Performed By: #### 2 662587, 8300482, 3636578, 2231346, 4417159, 20729714 ####[facility] [address] [place] [address] Hemoglobin (Bld) [Mass/Vol] 12.6 g/dL Normal 12.0-16.0 [facility] Comment on above: Performed By: #### 2 443666, 7916385, 9087647, 9049460, 5179196, 76863779 ####[address] [address] MCH (RBC) [Entitic mass] 29.1 pg Normal 27.0-34.0 [facility] Comment on above: Performed By: #### 2 898852, 1119160, 8289874, 1970122, 9502949, 62650614 ####[address] [address] MCHC (RBC) [Mass/Vol] 33.0 g/dL Normal 31.4-36.0 [facility] Comment on above: Performed By: #### 2 066537, 7322034, 6330244, 5524858, 0842265, 94844970 ####[address] [address] MCV (RBC) [Entitic vol] 88.3 fL Normal 80.0-100.0 [facility] Comment on above: Performed By: #### 2 863638, 8050222, 6333323, 1542184, 8250365, 58742147 ####[address] [address] Platelet mean volume (Bld) [Entitic vol] 8.2 fL Normal 6.4-10.8 [facility] Comment on above: Performed By: #### 2 828639, 9751517, 4214983, 9589079, 7614690, 04616629 ####[address] [address] Platelets (Bld) [#/Vol] 226.0 E9/L Normal 150.0-500.0 [facility] Comment on above: Performed By: #### 2 563919, 5464163, 4767864, 0377326, 4401480, 37004152 ####[facility] [address] [place] [address] RBC (Bld) [#/Vol] 4.3 E12/L Normal 4.3-5.9 [facility] Comment on above: Performed By: #### 2 295192, 1546830, 3195332, 4609276, 3694610, 07177818 ####[facility] [address] [place] [address] WBC corrected for nucl RBC Auto (Bld) [#/Vol] 7.8 E9/L Normal 4.0-11.0 [facility] Comment on above: Performed By: #### 2 680007, 5807434, 6456941, 7927849, 7527562, 77487638 ####[facility] [address] [place] [address] CHEMISTRYOrdered By: SYSTEM SYSTEM on 10-02-2022 Albumin [...] 6 - 16 mEq/L [facility] AST [Catalytic activity/Vol] 20 [iU]/d Normal 5 - 43 Int._Unit/L [facility] Bilirubin [Mass/Vol] 0.7 mg/dL Normal 0.0 - 1 .1 mg/dL [facility] Bilirubin.direct [Mass/Vol] 0.1 mg/dL Normal 0.1 - 0.4 mg/dL [facility] Bilirubin.indirect [Mass or moles/Vol] 0.6 mg/dL Normal 0.1 - 0.9 mg/dL [facility] Calcium [Mass/Vol] 9.7 mg/dL Normal 8.9 - 11. 1 mg/dL [facility] Chloride [Moles/Vol] 107 mmol/L Normal 101 - 1 11 mmol/L [facility] CO2 [Moles/Vol] 19 mmol/L Low 21 - 31 mmol/L [facility] Creatinine [Mass/Vol] 1.1 mg/dL Normal 0.5 - 1.3 mg/dL [facility] GFR/1.73 sq M.predicted among non-blacks MDRD (S/P/Bld) [Vol rate/Area] 55 mL/min/1.73 m2 Low >=59mL/min/1 .73 m2 FT Chem S Globulin (S) [Mass/Vol] 3.5 g/dL Normal 1.4 - 4.0 gm/dL [facility] Glucose [Mass/Vol] 186 mg/dL Normal 55 - 199 mg/dL [facility] Lipase [Catalytic activity/Vol] 41 U/L Normal 13 - 58 unit/L [facility] Potassium [Moles/Vol] 3.1 mmol/L Low 3.5 - 5.3 mmol/L [facility] Protein [Mass/Vol] 7.6 g/dL Normal 6.0 - 7.8 gm/dL [facility] Sodium [Moles/Vol] 138 mmol/L Normal 135 - 145 mmol/L [facility] Urea nitrogen [Mass/Vol] 16 mg/dL Normal 5 - 21 mg/d L [facility] Urea nitrogen/Creatinine [Mass ratio] 14 mg/mg Normal 10 - 20 [facility] Consent for Treatmenton Consent for Treatment [id number]#1.00CD:127 Normal [facility] ED Clinical Summaryon 2022 ED Clinical Summary Normal [facility] ED Note-Physicianon 10-03-19 ED Note-Physician Normal [facility] Comment on above: Result Comment: Elec tronically Signed By: Raul Arnold DO.br\Date and Time Signed: 10/02/22 18:44 EDT ED Patient Education Noteon 10-02-2022 ED Patient Education Note Normal [facility] ED Patient Summaryon 023 ED Patient Summary Normal [facility] HEMATOLOGYOrdered By: SYSTEM SYSTEM on 10-02-2022 Basophils/100 [...] 5.1 E9/L Normal 2.0 - 7.5 E9/L [facility] HemeAutoSS HEMATOLOGYOrdered By: Jose Martin Brar on 10-02-2022 Erythrocyte distribution width (RBC) [Ratio] 13.4 % Normal 10.9 - 14.2 % [facility] HemeAutoSS Hematocrit (Bld) [Volume fraction] 38.1 % Normal 34.0 - 46.0 % [facility] HemeAutoSS Hemoglobin (Bld) [Mass/Vol] 12.6 g/dL Normal 12.0 - 16.0 gm/dL [facility] HemeAutoSS MCH (RBC) [Entitic mass] 29.1 pg Normal 27. 0 - 34.0 pg [facility] HemeAutoSS MCHC (RBC) [Mass/Vol] 33.0 g/dL Normal 31.4 - 36.0 gm/dL [facility] HemeAutoSS MCV (RBC) [Entitic vol] 88.3 fL Normal 80.0 - 100.0 fL [facility] HemeAutoSS Platelet mean volume (Bld) [Entitic vol] 8.2 fL Normal 6.4 - 10.8 fL [facility] HemeAutoSS Platelets (Bld) [#/Vol] 226.0 E9/L Normal 150. 0 - 500.0 E9/L [facility] HemeAutoSS RBC (Bld) [#/Vol] 4.3 E12/L Normal 4.3 - 5.9 E12/L [facility] HemeAutoSS WBC corrected for nucl RBC Auto (Bld) [#/Vol] 7.8 E9/L Normal 4.0 - 11.0 E9/L [facility] HemeAutoSS Hep Func Panelon 10-02-2022 Albumin [Mass/Vol] 4.1 g/dL Normal 3.3-5.0 [facility] Comment on above: Performed By: #### 2 436008, 1588053, 6756462, 0170268, 0332521, 10058209 ####[facility] [address] [place] [address] Albumin/Globulin (S) [Mass conc ratio] 1.2 Normal 1.1-2.2 [facility] Comment on above: Performed By: #### 2 063280, 1247284, 7802488, 3687561, 5039893, 71953762 ####[facility] [address] [place] [address] ALP [Catalytic activity/Vol] 67 Int._Unit/L Normal 21-98 [facility] Comment on above: Performed By: #### 2 636137, 5102783, 2538500, 8507197, 7197672, 86890936 ####[facility] [address] [place] [address] ALT No additional P-5'-P [Catalytic activity/Vol] 8 Int._Unit/L Normal 6-46 [facility] Comment on above: Performed By: #### 2 032557, 0864185, 2007795, 2049434, 2883859, 38501582 ####[facility] [address] [place] [address] AST [Catalytic activity/Vol] 20 Int._Unit/L Normal 5-43 [facility] Comment on above: Performed By: #### 2 034207, 6305674, 9677131, 6231422, 1346935, 59023754 ####[address] [address] Bilirubin [Mass/Vol] 0.7 mg/dL Normal 0.0-1.1 [facility] Comment on above: Performed By: #### 2 505788, 3011929, 2524058, 2758994, 3487883, 48546053 ####[address] [address] Bilirubin.direct [Mass/Vol] 0.1 mg/dL Normal 0.1-0.4 [facility] Comment on above: Performed By: #### 2 104096, 8086587, 0466768, 0113654, 5068986, 07747509 ####[address] [address] Bilirubin.indirect [Mass or moles/Vol] 0.6 mg/dL Normal 0.1-0.9 [facility] Comment on above: Performed By: #### 2 735540, 2538940, 1477944, 5906646, 5503979, 83009684 ####[facility] [address] [place] [address] Globulin (S) [Mass/Vol] 3.5 g/dL Normal 1.4-4.0 [facility] Comment on above: Performed By: #### 2 182728, 1159570, 7938105, 2333217, 8335562, 48455980 ####[facility] [address] [place] [address] Protein [Mass/Vol] 7.6 g/dL Normal 6.0-7.8 [facility] Comment on above: Performed By: #### 2 730851, 2626299, 1294111, 9917594, 9813801, 08427222 ####[facility] [address] [place] [address] Lipase Levelon 10-02-2022 Lipase [Catalytic activity/Vol] 41 U/L Normal 13-58 [facility] Comment on above: Performed By: #### 2 201657, 8091012, 1258802, 4183891, 7615276, 01899287 ####[facility] [address] [place] [address] Pre-Arrival Noteon 3 Pre-Arrival Note Normal [facility] eGFRon 10-02-2022 GFR/1.73 sq M.predicted among non-blacks MDRD (S/P/Bld) [Vol rate/Area] 55 mL/min/1.73 m2 Low >=59 [facility] Comment on above: Order Comment: Order added by Discern Expert. Result Comment: Field Professional marquez kidney disease could be indicated at eGFR's of less than 60 mL/min/1.73m2. Kidney failure is indicated at less than 15 mL/min/1.73m2. Performed By: #### 2 [id number], [id number], [id number], [id number] ####[facility] [address] [place] [address] EMS Documentationon 09-18-19 EMS Documentation [id number] Normal [facility] CT Head or Brain w/o Contras ton 09-05-2022 CT Head or Brain w/o Contrast Normal [facility] CT Spine Cervical w/o Contra ston 09-05-2022 CT Spine Cervical w/o Contrast Normal [facility] [facility] CT Spine Thoracic w/o Contra ston 09-05-2022 CT Spine Thoracic w/o Contrast Normal [facility] Discharge Instructionson Discharge Instructions [id number]:127 Normal [facility] ED Note-Physicianon 09-06-19 ED Note-Physician Normal [facility] Comment on above: Result Comment: Elec tronically Signed By: Vinayak Cardoso PA-C\.br\Date and Time Signed: 09/04/22 23:09 EDT\.br\Electronically Co-Signed By: Earnest Guevara M.D.\.br\Date and Time Co-Signed: 09/05/22 07:27 EDT ED Traumaon 09-05-2022 ED Trauma [id number]:127 Normal [facility] ED Trauma [id number]#1.00CD:127 [facility] EMS Documentationon 09-06-19 EMS Documentation [id number]:127 Normal [facility] Comment on above: Other Comment: under wrong title RAD - Preliminary Cat Scan R eporton 09-05-2022 RAD - Preliminary Cat Scan Report [id number]:127 Normal [facility] ABO/Rhon 09-04-2022 ABO/Rh Positive Invalid Interpretation Code [facility] Comment on above: Performed By: #### 1 1575433, 1696393, 51444557, 07235559 ####[facility] [address] [place] [address] ABO/Rh History Checkon 09-04 ABO/Rh History Check Verified Hx Blood Type Normal [facility] Comment on above: Performed By: #### 1 5583830, 0315818, 85956031, 84990291 ####[facility] [address] [place] [address] ABSCon 09-04-2022 ABSC Gel Interp Negative Normal [facility] Comment on above: Performed By: #### 1 9423773, 5047938, 57498247, 86341161 ####[facility] [address] [place] [address] Auto Diffon 09-04-2022 Basophils/100 WBC (Bld) 0.2 % Normal 0.0-2.0 [facility] Comment on above: Order Comment: Order Added by Discern Expert. Performed By: #### 2 902309, 8122681, 77631271, 0474882, 4165066, 2645207, 9113060, 82613860, 1711096 ####[address] [place] [address] Basophils/Leukocytes Auto (Bld) [Pure # fraction] 0.0 E9/L Normal 0.0-0.2 [facility] Comment on above: Order Comment: Order Added by Discern Expert. Performed By: #### 2 108194, 5236731, 67211429, 9440200, 4762215, 2093900, 3018669, 76314519, 4259519 ####[address] [place] [address] Eosinophils/100 WBC (Bld) 2.0 % Normal 0.0-8.0 [facility] Comment on above: Order Comment: Order Added by Discern Expert. Performed By: #### 2 240915, 0200056, 86221540, 1594912, 5649075, 4410915, 2864872, 29462139, 3950854 ####[address] [place] [address] Eosinophils/Leukocytes Auto (Bld) [Pure # fraction] 0.1 E9/L Normal 0.0-0.5 [facility] Comment on above: Order Comment: Order Added by Discern Expert. Performed By: #### 2 292200, 5895490, 47957264, 0232586, 2777241, 9300654, 6185454, 86881729, 6017417 ####[address] [place] [address] Lymphocytes/100 WBC (Bld) 19.6 % Normal 14.0-50.0 [facility] Comment on above: Order Comment: Order Added by Discern Expert. Performed By: #### 2 088940, 2237231, 69075217, 9953872, 4812599, 0139171, 7682461, 94803486, 1619845 ####[facility] [address] [place] [address] Lymphocytes/Leukocytes Auto (Bld) [Pure # fraction] 1.2 E9/L Normal 1.0-4.0 [facility] Comment on above: Order Comment: Order Added by Discern Expert. Performed By: #### 2 522426, 4236590, 26699907, 1028621, 1172166, 5673189, 5224307, 18304570, 4420458 ####[address] [place] [address] Monocytes/100 WBC (Bld) 11.2 % Normal 4.0-14.0 [facility] Comment on above: Order Comment: Order Added by Discern Expert. Performed By: #### 2 663426, 3196803, 82875069, 9210591, 4398627, 9381143, 4351006, 36719465, 1025878 ####[address] [place] [address] Monocytes/Leukocytes Auto (Bld) [Pure # fraction] 0.7 E9/L Normal 0.2-1.0 [facility] Comment on above: Order Comment: Order Added by Discern Expert. Performed By: #### 2 145897, 5350935, 88946542, 7269021, 1962273, 5051351, 7543082, 88979530, 1107549 ####[facility] [address] [place] [address] Neutrophils/100 WBC (Bld) 67.0 % Normal 36.0-75.0 [facility] Comment on above: Order Comment: Order Added by Katherine Expert. Performed By: #### 2 778917, 7519445, 10018650, 5666111, 3117181, 4482676, 7765330, 58949139, 5957712 ####[facility] [address] [place] [address] Neutrophils/Leukocytes Auto (Bld) [Pure # fraction] 4.0 E9/L Normal 2.0-7.5 [facility] Comment on above: Order Comment: Order Added by Discern Expert. Performed By: #### 2 472174, 2469708, 28188503, 9476365, 8366163, 8133241, 3918264, 68422130, 1726344 ####[facility] [address] [place] [address] BLOOD BANKOrdered By: Jose Martin Brar on 09-04-2022 ABO/Rh Interp Positive Invalid Interpretation Code [facility] BB Subsection ABSC Gel Interp Negative (09/04/22 4:10 PM) Normal [facility] BB Subsection BMPon 09-04-2022 Creatinine [Mass/Vol] 0.9 mg/dL Normal 0.5-1.3 [facility] Comment on above: Performed By: #### 2 450482, 0664649, 27222369, 3721259, 9832689, 6022820, 7328588, 67435722, 2001263 ####[facility] [address] [place] [address] Urea nitrogen [Mass/Vol] 9 mg/dL Normal 5-21 [facility] Comment on above: Performed By: #### 2 239655, 7822725, 38510180, 8078508, 1267173, 4616212, 1196423, 23378770, 7595970 ####[facility] [address] [place] [address] Urea nitrogen/Creatinine [Mass ratio] 10 No Units Normal 10-20 [facility] Comment on above: Performed By: #### 2 157277, 2401718, 78480228, 0176864, 4965720, 2934937, 1591888, 02314700, 5797132 ####[facility] [address] [place] [address] Anion gap [Moles/Vol] 11 mmol/L Normal 6-16 [facility] Comment on above: Performed By: #### 2 695607, 5856527, 68088722, 5994059, 9839240, 2345127, 5662939, 29449474, 6930799 ####[facility] [address] [place] [address] Calcium [Mass/Vol] 9.0 mg/dL Normal 8.9-11.1 [facility] Comment on above: Performed By: #### 2 903434, 4183060, 09129580, 6134730, 5759447, 2312145, 7011915, 05680239, 0813348 ####[facility] [address] [place] [address] Chloride [Moles/Vol] 112 mmol/L High 101-111 [facility] Comment on above: Performed By: #### 2 149012, 3774554, 71608879, 1436582, 5402515, 5435703, 2630631, 90667497, 7932664 ####[facility] [address] [place] [address] CO2 [Moles/Vol] 20 mmol/L Low 21-31 [facility] Comment on above: Performed By: #### 2 504204, 4607134, 91325607, 4957425, 3731212, 9480434, 3005544, 64311858, 1337873 ####[facility] [address] [place] [address] Glucose [Mass/Vol] 237 mg/dL High 55-199 [facility] Comment on above: Result Comment: If t his glucose result represents a fasting glucose, interpretation should refer to the following reference range: 55-99 mg/dL Performed By: #### 2 521859, 1950036, 55609596, 3982000, 9401929, 5608664, 8096054, 37451691, 8647569 ####[facility] [address] [place] [address] Potassium [Moles/Vol] 3.2 mmol/L Low 3.5-5.3 [facility] Comment on above: Performed By: #### 2 630901, 4572407, 70012917, 2271855, 4006331, 6447713, 7170096, 33739258, 7182826 ####[facility] [address] [place] [address] Sodium [Moles/Vol] 140 mmol/L Normal 135-145 [facility] Comment on above: Performed By: #### 2 791686, 8997856, 98966669, 1884442, 2796051, 1910675, 5175817, 09560903, 2342628 ####[facility] [address] [place] [address] Blood Bank ID#on 09-04-2022 BBID# [id number] Invalid Interpretation Code [facility] Comment on above: Performed By: #### 1 2995917, 1998731, 30247119, 48029438 ####[facility] [address] [place] [address] CBC w/ Auto Diffon Erythrocyte distribution width (RBC) [Ratio] 13.4 % Normal 10.9-14.2 [facility] Comment on above: Performed By: #### 2 220669, 3099019, 14891728, 2775127, 8242300, 0410283, 7320105, 07112353, 0826062 ####[address] [place] [address] Hematocrit (Bld) [Volume fraction] 35.0 % Normal 34.0-46.0 [facility] Comment on above: Performed By: #### 2 432509, 6008047, 66604912, 9242256, 5397245, 3072906, 1408567, 04284047, 0948624 ####[facility] [address] [place] [address] Hemoglobin (Bld) [Mass/Vol] 11.5 g/dL Low 12.0-16.0 [facility] Comment on above: Performed By: #### 2 874984, 1800760, 62735816, 0967086, 3060371, 2867104, 7858249, 55368469, 8586881 ####[address] [place] [address] MCH (RBC) [Entitic mass] 29.2 pg Normal 27.0-34.0 [facility] Comment on above: Performed By: #### 2 309140, 4294513, 32683527, 7753085, 0137240, 7636722, 6914850, 31522008, 5171979 ####[address] [address] MCHC (RBC) [Mass/Vol] 33.0 g/dL Normal 31.4-36.0 [facility] Comment on above: Performed By: #### 2 620818, 9805539, 26658916, 3660783, 8450433, 4123725, 8618618, 52636294, 0370314 ####[address] [address] MCV (RBC) [Entitic vol] 88.4 fL Normal 80.0-100.0 [facility] Comment on above: Performed By: #### 2 961291, 7118250, 68796981, 0627199, 8927947, 6619715, 9961313, 21183483, 5633041 ####[address] [address] Platelet mean volume (Bld) [Entitic vol] 9.2 fL Normal 6.4-10.8 [facility] Comment on above: Performed By: #### 2 969502, 3963433, 89761710, 8948813, 6425218, 8371965, 0104782, 06084967, 1431335 ####[address] [place] [address] Platelets (Bld) [#/Vol] 148.0 E9/L Low 150.0-500.0 [facility] Comment on above: Performed By: #### 2 127892, 3890655, 69311413, 7654613, 3028770, 2031815, 2314172, 70295659, 2231729 ####[facility] [address] [place] [address] RBC (Bld) [#/Vol] 4.0 E12/L Low 4.3-5.9 [facility] Comment on above: Performed By: #### 2 083600, 8332836, 18378125, 3100504, 9474798, 4473066, 0190492, 48598464, 2618278 ####[facility] [address] [place] [address] WBC corrected for nucl RBC Auto (Bld) [#/Vol] 6.0 E9/L Normal 4.0-11.0 [facility] Comment on above: Performed By: #### 2 123892, 4183718, 64504181, 8215156, 1426231, 8777787, 5126971, 42581276, 0398814 ####[facility] [address] [place] [address] CHEMISTRYOrdered By: Lab ROP User on 09-04-2022 Glucose [Mass/Vol] 241 mg/dL High 55 - 99 mg/dL [facility] POC Subsection Comment on above: Result Comment: Fausto rubi RN/ POC Device SN [id number] Invalid Interpretation Code [facility] POC Subsection POC User ID [id number] Invalid Interpretation Code [facility] POC Subsection POC Username ALEKSANDAR KING Invalid Interpretation Code [facility] POC Subsection CHEMISTRYOrdered By: SYSTEM SYSTEM on 09-04-2022 Albumin [Mass/Vol] 3.6 g/dL Normal 3.3 - 5.0 gm/dL [facility] Albumin/Globulin [Mass ratio] 1.1 {ratio} Normal 1.1 - 2.2 [facility] ALP [Catalytic activity/Vol] 75 [iU]/d Normal 21 - 98 Int._Unit/L [facility] ALT No additional P-5'-P [Catalytic activity/Vol] 14 [iU]/d Normal 6 - 46 Int._Unit/L [facility] Remisol Anion gap [Moles/Vol] 11 mmol/L Normal 6 - 16 mEq/L [facility] AST [Catalytic activity/Vol] 16 [iU]/d Normal 5 - 43 Int._Unit/L [facility] Bilirubin [Mass/Vol] 0.6 mg/dL Normal 0.0 - 1 .1 mg/dL [facility] Bilirubin.direct [Mass/Vol] 0.2 mg/dL Normal 0.1 - 0.4 mg/dL [facility] Remisol Bilirubin.indirect [Mass or moles/Vol] 0.4 mg/dL Normal 0.1 - 0.9 mg/dL [facility] Calcium [Mass/Vol] 9.0 mg/dL Normal 8.9 - 11. 1 mg/dL [facility] Chloride [Moles/Vol] 112 mmol/L High 101 - 1 11 mmol/L [facility] CO2 [Moles/Vol] 20 mmol/L Low 21 - 31 mmol/L [facility] Creatinine [Mass/Vol] 0.9 mg/dL Normal 0.5 - 1.3 mg/dL [facility] Ethanol [Mass/Vol] mg/dL Normal <=7mg/dL [facility] R emisol GFR/1.73 sq M.predicted among non-blacks MDRD (S/P/Bld) [Vol rate/Area] 70 mL/min/1.73 m2 Normal >=59mL/min/1 .73 m2 [facility] Chem S Globulin (S) [Mass/Vol] 3.3 g/dL [...] 3.20 pg/mL Low 10.10 - 27.10 pg/mL [facility] Remisol Urea nitrogen [Mass/Vol] 9 mg/dL Normal 5 - 21 mg/d L [facility] Remisol Urea nitrogen/Creatinine [Mass ratio] 10 mg/mg Normal 10 - 20 [facility] Remisol COAGULATIONOrdered By: Kraig Bradford on 09-04-2022 aPTT Coag (PPP) [Time] 28.8 s Normal 25.1 - 36.5 second(s) [facility] Auto Coag INR Coag (PPP) [Relative time] 1.1 {INR} Invalid Interpretation Code [facility] Auto Coag PT Coag (PPP) [Time] 12.0 s Normal 9.4 - 1 2.5 second(s) [facility] Auto Coag CT Abdomen/Pelvis w/o Contra ston 09-04-2022 CT Abdomen/Pelvis w/o Contrast Normal [facility] CT Chest w/o Contraston CT Chest w/o Contrast Normal [facility] CT Head or Brain w/o Contras ton 09-04-2022 CT Head or Brain w/o Contrast Normal [facility] CT Spine Cervical w/o Contra ston 09-04-2022 CT Spine Cervical w/o Contrast Normal [facility] Capillary Glucose POCon Glucose [Mass/Vol] 241 mg/dL High 55-99 [facility] Comment on above: Result Comment: Fausto rubi RN/ Performed By: #### 2 48413460 ####[facility] [address] [place] [address] Consent for Treatmenton Consent for Treatment [id number]#[id number]:127 Normal [facility] Discharge Instructionson Discharge Instructions [id number]#[id number]:127 Normal [facility] ED Clinical Summaryon 2022 ED Clinical Summary Normal [facility] ED Clinical Summary Normal [facility] ED Note-Physicianon 09-05-19 ED Note-Physician Normal [facility] Comment on above: Result Comment: Elec tronically Signed By: Hari Martinez DObr\Date and Time Signed: 09/04/22 21:27 EDT ED Patient Education Noteon 09-04-2022 ED Patient Education Note Normal [facility] ED Patient Education Note Normal [facility] ED Patient Summaryon 023 ED Patient Summary Normal [facility] ED Patient Summary Normal [facility] Ethanolon 09-04-2022 Ethanol [Mass/Vol] mg/dL Normal <=7 [facility] Comment on above: Performed By: #### 2 812632 ####[facility] [address] [place] [address] HEMATOLOGYOrdered By: SYSTEM SYSTEM on 09-04-2022 Basophils/100 [...] 13.4 % Normal 10.9 - 14.2 % FT HemeAutoSS Hematocrit (Bld) [Volume fraction] 35.0 % Normal 34.0 - 46.0 % FT [facility]eAutoSS Hemoglobin (Bld) [Mass/Vol] 11.5 g/dL Low 12.0 - 16.0 gm/dL FT HemeAutoSS MCH (RBC) [Entitic mass] 29.2 pg Normal 27. 0 - 34.0 pg FT HemeAutoSS MCHC (RBC) [Mass/Vol] 33.0 g/dL Normal 31.4 - 36.0 gm/dL FT HemeAutoSS MCV (RBC) [Entitic vol] 88.4 fL Normal 80.0 - 100.0 fL FT HemeAutoSS Platelet mean volume (Bld) [Entitic vol] 9.2 fL Normal 6.4 - 10.8 fL FT [facility]eAutoSS Platelets (Bld) [#/Vol] 148.0 E9/L Low 150. 0 - 500.0 E9/L FT [facility]eAutoSS RBC (Bld) [#/Vol] 4.0 E12/L Low 4.3 - 5.9 E12/L FT [facility] WBC corrected for nucl RBC Auto (Bld) [#/Vol] 6.0 E9/L Normal 4.0 - 11.0 E9/L FT [facility] Hep Func Panelon 09-04-2022 Albumin [Mass/Vol] 3.6 g/dL Normal 3.3-5.0 [facility] Comment on above: Performed By: #### 2 254503, 6993859, 24848533, 4438609, 8397669, 0278230, 3283994, 02816684, 5065404 ####[facility] [address] [place] [address] Albumin/Globulin (S) [Mass conc ratio] 1.1 Normal 1.1-2.2 [facility] Comment on above: Performed By: #### 2 051040, 1454177, 97723520, 3741321, 2080939, 0019474, 5057713, 97640421, 3427087 ####[address] [place] [address] ALP [Catalytic activity/Vol] 75 Int._Unit/L Normal 21-98 [facility] Comment on above: Performed By: #### 2 620802, 8865883, 52731085, 6585060, 1524774, 1132850, 7907828, 72607105, 1656539 ####[address] [address] ALT No additional P-5'-P [Catalytic activity/Vol] 14 Int._Unit/L Normal 6-46 [facility] Comment on above: Performed By: #### 2 031615, 8755496, 18167921, 6225998, 0083616, 7127377, 8417613, 92859771, 8707659 ####[address] [address] AST [Catalytic activity/Vol] 16 Int._Unit/L Normal 5-43 [facility] Comment on above: Performed By: #### 2 479907, 4585603, 03882983, 0581596, 8618146, 2487846, 3803079, 17981596, 1308753 ####[address] [address] Bilirubin [Mass/Vol] 0.6 mg/dL Normal 0.0-1.1 [facility] Comment on above: Performed By: #### 2 868088, 8452256, 67377381, 7169998, 7938064, 6111532, 2994755, 74572846, 9473078 ####[address] [place] [address] Bilirubin.direct [Mass/Vol] 0.2 mg/dL Normal 0.1-0.4 [facility] Comment on above: Performed By: #### 2 826432, 4020544, 50893939, 7860050, 9120255, 0345015, 6236049, 97311102, 0971125 ####[facility] [address] [place] [address] Bilirubin.indirect [Mass or moles/Vol] 0.4 mg/dL Normal 0.1-0.9 [facility] Comment on above: Performed By: #### 2 404004, 3622810, 90174812, 9269863, 7209641, 5168040, 5271862, 74995249, 9520006 ####[address] [place] [address] Globulin (S) [Mass/Vol] 3.3 g/dL Normal 1.4-4.0 [facility] Comment on above: Performed By: #### 2 363739, 6175049, 34802023, 2888944, 9552268, 9558245, 2309836, 76198408, 5347332 ####[address] [place] [address] Protein [Mass/Vol] 6.9 g/dL Normal 6.0-7.8 [facility] Comment on above: Performed By: #### 2 631198, 8506593, 02141036, 8869002, 5984334, 4259151, 3069136, 94624150, 8262221 ####[facility] [address] [place] [address] Lactic Acidon 09-04-2022 Lactate [Mass/Vol] 1.7 mmol/L Normal 0.5-2.2 [facility] Comment on above: Performed By: #### 2 224668, 9748967, 51976837, 0897780, 1112459, 1203595, 6369372, 71504395, 9259718 ####[address] [place] [address] Lipase Levelon 09-04-2022 Lipase [Catalytic activity/Vol] 40 U/L Normal 13-58 [facility] Comment on above: Performed By: #### 2 807668, 7904362, 60728367, 7864413, 4641771, 0705141, 2753404, 57668048, 5283837 ####[facility] [address] [place] [address] PT & PTTon 09-04-2022 aPTT Coag (PPP) [Time] 28.8 second(s) Normal 25.1-36.5 [facility] Comment on above: Result Comment: Para meter [...] the same coagulation reagent and instrumentation as [facility]. Currently there are no coagulation studies available worldwide for children to 14 days, and no normal ranges. Heparin therapeutic range (represented by Anti-Factor Xa activity of 0.2 - 0.4 U/mL) corresponds to PTT of 56.6 - 109.0 sec. Performed By: #### 2 705959, 5913775, 49127617, 2551395, 4388613, 2180926, 4407071, 02562448, 9695850 ####[facility] [address] [place] [address] INR Coag (PPP) [Relative time] 1.1 {INR} Invalid Interpretation Code [facility] Comment on above: Result Comment: INR results are specifically intended to assess patients stabilized on long-term Anticoagulation therapy suggested INR?s ?Less Intensive Anticoagulation? 2.0 ? 3.0Conventional Range 3.0 ? 4.5 Performed By: #### 2 074204, 4106783, 80696400, 0321365, 0629586, 6504277, 7765597, 48641167, 3607543 ####[facility] [address] [place] [address] PT Coag (PPP) [Time] 12.0 second(s) Normal 9.4-12.5 [facility] Comment on above: Result Comment: 15 d [...] the same coagulation reagent and instrumentation as [facility]. Currently there are no coagulation studies available worldwide for children to 14 days, and no normal ranges. Performed By: #### 2 308582, 5675979, 46725343, 8724655, 6666507, 4487975, 5704513, 58861675, 5331688 ####[facility] [address] [place] [address] Troponinon 09-04-2022 Troponin I.cardiac [Mass/Vol] 3.20 pg/mL Low 10.10-27.10 [facility] Comment on above: Result Comment: The 95% CI (Confidence Interval) PPV (Positive Predictive Value) for myocardial infarction in females is 38 pg/mL, in males 51 pg/mL. The results should be used in conjunction with clinical conditions of myocardial infarction.(Access High Sensitivity Troponin I Instructions For Use, Cecily Newcomb, October 2017) Performed By: #### 2 752317, 0177832, 65460533, 4543767, 7537272, 3053370, 7805994, 11808360, 6939705 ####[facility] [address] [place] [address] XR Hip 2-3 Views Left + Pelv sundeep 09-04-2022 XR Hip 2-3 Views Left + Pelvis Normal [facility] XR Shoulder Complete Lefton 09-04-2022 XR Shoulder Complete Left Normal [facility] eGFRon 09-04-2022 GFR/1.73 sq M.predicted among non-blacks MDRD (S/P/Bld) [Vol rate/Area] 70 mL/min/1.73 m2 Normal >=59 [facility] Comment on above: Order Comment: Order added by Discern Expert. Result Comment: Field Professional marquez kidney disease could be indicated at eGFR's of less than 60 mL/min/1.73m2. Kidney failure is indicated at less than 15 mL/min/1.73m2. Performed By: #### 2 459430, 8819196, 17273397, 4324494, 3394865, 7224716, 1345929, 21916336, 2628250 ####[facility] [address] [place] [address] Auto Diffon 08-09-2022 Basophils/100 WBC (Bld) 0.4 % Normal 0.0-2.0 [facility] Comment on above: Order Comment: Order Added by Katherine Expert. Performed By: #### 1 7372528, 1018381, 8671088, 0388480, 39459834, 6503114, 4616842, 6733859 ####[facility] [address] [place] [address] Basophils/Leukocytes Auto (Bld) [Pure # fraction] 0.0 E9/L Normal 0.0-0.2 [facility] Comment on above: Order Comment: Order Added by Discern Expert. Performed By: #### 1 6616044, 0172058, 8651145, 5542406, 33318648, 6588047, 9140611, 9977435 ####[facility] [address] [place] [address] Eosinophils/100 WBC (Bld) 2.8 % Normal 0.0-8.0 [facility] Comment on above: Order Comment: Order Added by Katherine Expert. Performed By: #### 1 [id number], [id number], [id number], [id number], [id number], 0154157, 3157434, 1370205 ####[facility] [id number] [place] [address] Eosinophils/Leukocytes Auto (Bld) [Pure # fraction] 0.1 E9/L Normal 0.0-0.5 [facility] Comment on above: Order Comment: Order Added by Discern Expert. Performed By: #### 1 [id number], [id number], 8982514, 4733040, [id number], 8720433, 4694526, [id number] ####[id number] [place] [address] Lymphocytes/100 WBC (Bld) 26.3 % Normal 14.0-50.0 [facility] Comment on above: Order Comment: Order Added by Katherine Expert. Performed By: #### 1 [id number], 9806622, 7875032, 1575378, [id number], 5261476, 0484581, [id number] ####[address] [address] Lymphocytes/Leukocytes Auto (Bld) [Pure # fraction] 1.3 E9/L Normal 1.0-4.0 [facility] Comment on above: Order Comment: Order Added by Katherine Expert. Performed By: #### 1 [id number], 1211543, 5931292, 8511979, 84550259, 2150623, 6770363, 5432973 ####[address] [place] [address] Monocytes/100 WBC (Bld) 10.8 % Normal 4.0-14.0 [facility] Comment on above: Order Comment: Order Added by Discern Expert. Performed By: #### 1 6029944, 0680224, 1537850, 0989141, 52920116, 9611655, 0789060, 1779346 ####[address] [place] [address] Monocytes/Leukocytes Auto (Bld) [Pure # fraction] 0.5 E9/L Normal 0.2-1.0 [facility] Comment on above: Order Comment: Order Added by Katherine Expert. Performed By: #### 1 7934140, 5253048, 9084292, 1021452, 31526772, 6336399, 1386075, 6783902 ####[facility] [address] [place] [address] Neutrophils/100 WBC (Bld) 59.7 % Normal 36.0-75.0 [facility] Comment on above: Order Comment: Order Added by Discern Expert. Performed By: #### 1 6244788, 8683493, 3671706, 6591596, 08670015, 2884060, 6363381, 4128174 ####[facility] [address] [place] [address] Neutrophils/Leukocytes Auto (Bld) [Pure # fraction] 2.9 E9/L Normal 2.0-7.5 [facility] Comment on above: Order Comment: Order Added by Discern Expert. Performed By: #### 1 9930466, 5337378, 9220641, 8754314, 60846583, 2452211, 4939890, 0082977 ####[address] [place] [address] BMPon 08-09-2022 Creatinine [Mass/Vol] 1.0 mg/dL Normal 0.5-1.3 [facility] Comment on above: Performed By: #### 1 8085680, 1287041, 1398668, 3387839, 37891170, 3235464, 4788702, 1442711 ####[address] [place] [address] Urea nitrogen [Mass/Vol] 12 mg/dL Normal 5-21 [facility] Comment on above: Performed By: #### 1 1972317, 3547611, 7321622, 2922982, 18282988, 6117308, 7516037, 3643107 ####[facility] [address] [place] [address] Urea nitrogen/Creatinine [Mass ratio] 12 No Units Normal 10-20 [facility] Comment on above: Performed By: #### 1 5690878, 5045153, 1468771, 0060882, 71046011, 3117056, 5896640, 0425549 ####[address] [place] [address] Anion gap [Moles/Vol] 13 mmol/L Normal 6-16 [facility] Comment on above: Performed By: #### 1 7648919, 9861260, 7162722, 0999497, 22413204, 7946277, 5329534, 9027316 ####[facility] [address] [place] [address] Calcium [Mass/Vol] 9.1 mg/dL Normal 8.9-11.1 [facility] Comment on above: Performed By: #### 1 9057789, 2808430, 1737459, 6421200, 44939582, 4813287, 7213958, 9818120 ####[facility] [address] [place] [address] Chloride [Moles/Vol] 107 mmol/L Normal 101-111 [facility] Comment on above: Performed By: #### 1 1639446, 6597907, 3877634, 9013467, 57102057, 5815357, 8116103, 3356197 ####[facility] [address] [place] [address] CO2 [Moles/Vol] 22 mmol/L Normal 21-31 [facility] Comment on above: Performed By: #### 1 2375595, 5351096, 6917011, 1023603, 98632971, 9008836, 8902888, 5775183 ####[facility] [address] [place] [address] Glucose [Mass/Vol] 203 mg/dL High 55-199 [facility] Comment on above: Result Comment: If t his glucose result represents a fasting glucose, interpretation should refer to the following reference range: 55-99 mg/dL Performed By: #### 1 3921755, 1561043, 6084860, 4855252, 21397267, 6661268, 7778344, 6522884 ####[facility] [address] [place] [address] Potassium [Moles/Vol] 3.7 mmol/L Normal 3.5-5.3 [facility] Comment on above: Performed By: #### 1 3854449, 5084392, 4016217, 1151853, 93363331, 9736198, 6652352, 2708335 ####[facility] [address] [place] [address] Sodium [Moles/Vol] 138 mmol/L Normal 135-145 [facility] Comment on above: Performed By: #### 1 8760720, 9703390, 7858279, 0940385, 76722437, 3619510, 8234450, 2466046 ####[facility] [address] [place] [address] CBC w/ Auto Diffon 3 Erythrocyte distribution width (RBC) [Ratio] 13.7 % Normal 10.9-14.2 [facility] Comment on above: Performed By: #### 1 6506504, 4545294, 8591541, 0502515, 53973450, 0389472, 3637765, 7103535 ####[facility] [address] [place] [address] Hematocrit (Bld) [Volume fraction] 38.2 % Normal 34.0-46.0 [facility] Comment on above: Performed By: #### 1 5580263, 9495756, 7083635, 0353785, 64515407, 9448355, 1714911, 3934858 ####[address] [place] [address] Hemoglobin (Bld) [Mass/Vol] 12.1 g/dL Normal 12.0-16.0 [facility] Comment on above: Performed By: #### 1 4976467, 8205372, 6833452, 4339105, 32876853, 9430769, 3495362, 7266743 ####[facility] [address] [place] [address] MCH (RBC) [Entitic mass] 28.9 pg Normal 27.0-34.0 [facility] Comment on above: Performed By: #### 1 9383028, 0966098, 7680917, 1548202, 71730304, 3131291, 7952108, 7926564 ####[facility] [address] MCHC (RBC) [Mass/Vol] 31.6 g/dL Normal 31.4-36.0 [facility] Comment on above: Performed By: #### 1 3241328, 1767494, 6014436, 8303702, 35256983, 2199151, 8801832, 1495161 ####[facility] [address] MCV (RBC) [Entitic vol] 91.4 fL Normal 80.0-100.0 [facility] Comment on above: Performed By: #### 1 6177822, 7381603, 5201260, 0159560, 14730041, 7113136, 7265170, 0856481 ####[address] Platelet mean volume (Bld) [Entitic vol] 8.2 fL Normal 6.4-10.8 [facility] Comment on above: Performed By: #### 1 1584807, 8738091, 7330847, 3705443, 24502776, 6897347, 8613966, 1502240 ####[address] [place] [address] Platelets (Bld) [#/Vol] 141.0 E9/L Low 150.0-500.0 [facility] Comment on above: Performed By: #### 1 5979055, 4211092, 3492435, 6036936, 28209961, 4120879, 3297469, 1270507 ####[address] [place] [address] RBC (Bld) [#/Vol] 4.2 E12/L Low 4.3-5.9 [facility] Comment on above: Performed By: #### 1 2218216, 1221557, 3589581, 4333436, 03146757, 7418092, 7941156, 4632305 ####[facility] [address] [place] [address] WBC corrected for nucl RBC Auto (Bld) [#/Vol] 4.9 E9/L Normal 4.0-11.0 [facility] Comment on above: Performed By: #### 1 2197760, 4364895, 9931755, 4696929, 85615762, 8950074, 9842928, 6174980 ####[facility] [address] [place] [address] CHEMISTRYOrdered By: SYSTEM SYSTEM on 08-09-2022 Albumin [...] - 0.9 mg/dL [facility] Calcium [Mass/Vol] 9.1 mg/dL Normal 8.9 - 11. 1 mg/dL [facility] Chloride [Moles/Vol] 107 mmol/L Normal 101 - 1 11 mmol/L [facility] CO2 [Moles/Vol] 22 mmol/L Normal 21 - 31 mmol/L [facility] Creatinine [Mass/Vol] 1.0 mg/dL Normal 0.5 - 1.3 mg/dL [facility] Remisol GFR/1.73 sq M.predicted among non-blacks MDRD (S/P/Bld) [Vol rate/Area] 62 mL/min/1.73 m2 Normal >=59mL/min/1 .73 m2 [facility] Chem S Globulin (S) [Mass/Vol] 3.7 g/dL Normal 1.4 - 4.0 gm/dL [facility] Remisol Glucose [Mass/Vol] 203 mg/dL High 55 - 199 mg/dL [facility] Remisol Lactate [Mass/Vol] 1.9 mmol/L Normal 0.5 - 2.2 mmol/L [facility] Remisol Potassium [Moles/Vol] 3.7 mmol/L Normal 3.5 - 5.3 mmol/L [facility] Remisol Protein [Mass/Vol] 7.6 g/dL Normal 6.0 - 7.8 gm/dL [facility] Remisol Sodium [Moles/Vol] 138 mmol/L Normal 135 - 145 mmol/L [facility] Remisol Troponin I.cardiac [Mass/Vol] 2.50 pg/mL Low 10.10 - 27.10 pg/mL [facility] Remisol Urea nitrogen [Mass/Vol] 12 mg/dL Normal 5 - 21 mg/d L [facility] Remisol Urea nitrogen/Creatinine [Mass ratio] 12 mg/mg Normal 10 - 20 [facility] Remisol CHEMISTRYOrdered By: Lab ROP User on 08-09-2022 Glucose [Mass/Vol] 212 mg/dL High 55 - 99 mg/dL [facility] POC Subsection POC Device SN [id number] Invalid Interpretation Code [facility] POC Subsection POC User ID [id number] Invalid Interpretation Code [facility] POC Subsection POC Username STEVE KIMBALL Invalid Interpretation Code [facility] POC Subsection COAGULATIONOrdered By: Vinnie Smith on 08-09-2022 aPTT Coag (PPP) [Time] 31.1 s Normal 25.1 - 36.5 second(s) [facility] Auto Coag INR Coag (PPP) [Relative time] 1.0 {INR} Invalid Interpretation Code [facility] Auto Coag PT Coag (PPP) [Time] 10.9 s Normal 9.4 - 1 2.5 second(s) [facility] Auto Coag CT Head or Brain w/o Contras ton 08-09-2022 CT Head or Brain w/o Contrast Normal [facility] CT Spine Cervical w/o Contra ston 08-09-2022 CT Spine Cervical w/o Contrast Normal [facility] Capillary Glucose POCon 07-29 Glucose [Mass/Vol] 212 mg/dL High 55-99 [facility] Comment on above: Performed By: #### 2 [id number] ####[facility] [address] [place] [address] Consent for Treatmenton 07-29 Consent for Treatment [id number]#[id number]:127 Normal [facility] Discharge Instructionson Discharge Instructions [id number]#[id number]:127 Normal [facility] ED Clinical Summaryon 2022 ED Clinical Summary Normal [facility] ED Note-Physicianon 08-10-19 23 ED Note-Physician Normal [facility] Comment on above: Result Comment: Elec tronically Signed By: Raul Arnold DO.br\Date and Time Signed: 08/09/22 14:13 EDT ED Patient Education Noteon 08-09-2022 ED Patient Education Note Normal [facility] ED Patient Summaryon 023 ED Patient Summary Normal [facility] ED Traumaon 08-09-2022 ED Trauma [id number]#[id number]:127 Normal [facility] HEMATOLOGYOrdered By: SYSTEM SYSTEM on 08-09-2022 Basophils/100 [...] MCH (RBC) [Entitic mass] 28.9 pg Normal 27. 0 - 34.0 pg [facility]eAutoSS MCHC (RBC) [Mass/Vol] 31.6 g/dL Normal 31.4 - 36.0 gm/dL [facility]eAuto[facility] MCV (RBC) [Entitic vol] 91.4 fL Normal 80.0 - 100.0 fL [facility]eAuto[facility] Platelet mean volume (Bld) [Entitic vol] 8.2 fL Normal 6.4 - 10.8 fL [facility]Auto[facility] Platelets (Bld) [#/Vol] 141.0 E9/L Low 150. 0 - 500.0 E9/L [facility] RBC (Bld) [#/Vol] 4.2 E12/L Low 4.3 - 5.9 E12/L [facility] WBC corrected for nucl RBC Auto (Bld) [#/Vol] 4.9 E9/L Normal 4.0 - 11.0 E9/L [facility] HemeAutoSS Hep Func Panelon 08-09-2022 Bilirubin.indirect [Mass or moles/Vol] UT Abnormal 0.1-0.9 [facility] Comment on above: Result Comment: Resu lt verified by Discern Rule. Performed result UT (Unable to Calculate) was sent as an Alpha code due the inability to calculate a valid numeric value. Performed By: #### 1 0406575, 4811787, 2467808, 8164651, 50918369, 1932125, 9682981, 1771139 ####[facility] [address] [place] [address] Albumin [Mass/Vol] 3.9 g/dL Normal 3.3-5.0 [facility] Comment on above: Performed By: #### 1 9144128, 7603334, 1308123, 9263170, 85040451, 1909253, 5429255, 7872847 ####[facility] [address] [place] [address] Albumin/Globulin (S) [Mass conc ratio] 1.0 Low 1.1-2.2 [facility] Comment on above: Performed By: #### 1 1833124, 0860793, 4156897, 6884377, 85350460, 8973905, 0920367, 2794532 ####[facility] [address] [place] [address] ALP [Catalytic activity/Vol] 86 Int._Unit/L Normal 21-98 [facility] Comment on above: Performed By: #### 1 9942047, 6361581, 1881342, 3865517, 30171061, 9660082, 2466163, 0673396 ####[facility] [address] [place] [address] ALT No additional P-5'-P [Catalytic activity/Vol] 21 Int._Unit/L Normal 6-46 [facility] Comment on above: Performed By: #### 1 1065449, 4092319, 3736000, 0712848, 41586275, 1267640, 7548484, 6750521 ####[facility] [address] [place] [address] AST [Catalytic activity/Vol] 29 Int._Unit/L Normal 5-43 [facility] Comment on above: Performed By: #### 1 0555110, 8626277, 3582729, 4297593, 76718137, 4442175, 1335985, 4060561 ####[facility] [address] [place] [address] Bilirubin [Mass/Vol] 0.5 mg/dL Normal 0.0-1.1 [facility] Comment on above: Performed By: #### 1 6431131, 8952612, 9669105, 2647442, 38290873, 1790333, 0342346, 2073665 ####[facility] [address] [place] [address] Globulin (S) [Mass/Vol] 3.7 g/dL Normal 1.4-4.0 [facility] Comment on above: Performed By: #### 1 4296971, 4994087, 4958507, 7814928, 87917028, 2398733, 4113868, 8850608 ####[facility] [address] [place] [address] Protein [Mass/Vol] 7.6 g/dL Normal 6.0-7.8 [facility] Comment on above: Performed By: #### 1 6916194, 7409926, 3928356, 6990299, 56680457, 8203830, 5686571, 7504515 ####[facility] [address] [place] [address] Bilirubin.direct [Mass/Vol] mg/dL Normal 0.1-0.4 [facility] Comment on above: Performed By: #### 1 9365415, 1144493, 2321775, 2160509, 74397971, 2284174, 8234780, 7367507 ####[address] [address] Lactic Acidon 08-09-2022 Lactate [Mass/Vol] 1.9 mmol/L Normal 0.5-2.2 [facility] Comment on above: Performed By: #### 1 2849409, 6164423, 1525176, 1835539, 75399108, 7624408, 9214486, 6473484 ####[facility] [address] [place] [address] PT & PTTon 08-09-2022 aPTT Coag (PPP) [Time] 31.1 second(s) Normal 25.1-36.5 [facility] Comment on above: Result Comment: Para meter [...] the same coagulation reagent and instrumentation as [facility]. Currently there are no coagulation studies available worldwide for children to 14 days, and no normal ranges. Heparin therapeutic range (represented by Anti-Factor Xa activity of 0.2 - 0.4 U/mL) corresponds to PTT of 56.6 - 109.0 sec. Performed By: #### 1 4652922, 8617664, 3404451, 9055342, 65791540, 9144029, 4566795, 8830131 ####[facility] [address] [place] [address] INR Coag (PPP) [Relative time] 1.0 {INR} Invalid Interpretation Code [facility] Comment on above: Result Comment: INR results are specifically intended to assess patients stabilized on long-term Anticoagulation therapy suggested INR?s ?Less Intensive Anticoagulation? 2.0 ? 3.0Conventional Range 3.0 ? 4.5 Performed By: #### 1 7612498, 3611144, 7374184, 3624944, 92368122, 3225030, 0548993, 7793508 ####[facility] [address] [place] [address] PT Coag (PPP) [Time] 10.9 second(s) Normal 9.4-12.5 [facility] Comment on above: Result Comment: 15 d [...] the same coagulation reagent and instrumentation as [facility]. Currently there are no coagulation studies available worldwide for children to 14 days, and no normal ranges. Performed By: #### 1 8593928, 4609222, 0867169, 7358131, 65094139, 6577129, 8725840, 6561175 ####[facility] [address] [place] [address] Troponinon 08-09-2022 Troponin I.cardiac [Mass/Vol] 2.50 pg/mL Low 10.10-27.10 [facility] Comment on above: Result Comment: The 95% CI (Confidence Interval) PPV (Positive Predictive Value) for myocardial infarction in females is 38 pg/mL, in males 51 pg/mL. The results should be used in conjunction with clinical conditions of myocardial infarction.(Access High Sensitivity Troponin I Instructions For Use, Cecily Amol, October 2017) Performed By: #### 1 4136976, 7061280, 4352845, 0305087, 70102440, 8357855, 0151940, 2799717 ####[facility] [address] [place] [address] UA With Cult Reflexon 2022 Bilirubin Ql (U) Negative Normal Negative [facility] Comment on above: Performed By: #### 1 7686313 ####[facility] [address] [place] [address] Clarity (U) CLEAR Normal Clear [facility] Comment on above: Performed By: #### 1 2634409 ####[address] [place] [address] Color (U) YELLOW Normal Yellow [facility] Comment on above: Performed By: #### 1 3219853 ####[address] [address] Epithelial cells.squamous LM.HPF (Urine sed) [#/Area] 0-2 Normal 0-2 [facility] Comment on above: Performed By: #### 1 3783564 ####[address] [address] Glucose Test strip (U) [Mass/Vol] 3+ Abnormal Negative [facility] Comment on above: Performed By: #### 1 0546007 ####[address] [address] Hemoglobin Ql (U) Negative Normal Negative [facility] Comment on above: Performed By: #### 1 8258916 ####[facility] [address] [place] [address] Ketones (U) [Mass/Vol] Negative Normal Negative [facility] Comment on above: Performed By: #### 1 8744988 ####[facility] [address] [place] [address] Bonham.plasma/Bonham.R BC (Bld) [Mass ratio] 0-3 Normal 0-3 [facility] Comment on above: Performed By: #### 1 2738757 ####[address] [place] [address] Nitrite Ql (U) Negative Normal Negative [facility] Comment on above: Performed By: #### 1 4131782 ####[address] [address] pH (U) 6.0 [pH] Invalid Interpretation Code 5.0-9.0 [facility] Comment on above: Performed By: #### 1 6207195 ####[place] [address] Protein (U) [Mass/Vol] Negative Normal Negative [facility] Comment on above: Performed By: #### 1 0109454 ####[place] [address] Specific gravity (U) [Rel density] <=1.005 Invalid Interpretation Code 1.005-1.030 [facility] Comment on above: Performed By: #### 1 7750489 ####[place] [address] Type of Urine collection method Clean Catch Normal [facility] Comment on above: Performed By: #### 1 9080294 ####[place] [address] Urobilinogen Qn (U) 0.2 {Papa'U}/dL Normal 0.0-1.0 [facility] Comment on above: Performed By: #### 1 7374901 ####[place] [address] WBC Auto Ql (U) Negative Normal Negative [facility] Comment on above: Performed By: #### 1 5364636 ####[address] [address] WBC LM.HPF (Urine sed) [#/Area] 0-5 Normal 0-5 [facility] Comment on above: Performed By: #### 1 8777625 ####[address] [address] URINALYSISOrdered By: Sylvia Smith on 08-09-2022 Bilirubin [...] PM) Normal Negative [facility] UA Auto SS Bonham.plasma/Bonham.R BC (Bld) [Mass ratio] 0-3 /HPF Normal 0-3/HPF [facility] UA Au to SS Nitrite Ql (U) Negative (08/09/22 2:08 [...] [facility] UA Auto SS Urobilinogen Qn (U) 0.9540274 {Papa'U}/dL Normal 0.0 - 1.0 EU/dL [facility] UA Auto SS WBC Auto Ql (U) Negative (08/09/22 2:08 PM) Normal Negative [facility] UA Auto SS WBC LM.HPF (Urine sed) [#/Area] 0-5 /HPF Normal 0-5/HPF [facility] UA Auto SS XR Chest Single Viewon 08-09 XR Chest Single View Normal [facility] eGFRon 08-09-2022 GFR/1.73 sq M.predicted among non-blacks MDRD (S/P/Bld) [Vol rate/Area] 62 mL/min/1.73 m2 Normal >=59 [facility] Comment on above: Order Comment: Order added by Discern Expert. Result Comment: Field Professional marquez kidney disease could be indicated at eGFR's of less than 60 mL/min/1.73m2. Kidney failure is indicated at less than 15 mL/min/1.73m2. Performed By: #### 1 9212359, 5223610, 7656146, 1307586, 41523181, 5194534, 1990691, 1723155 ####[facility] [address] [place] [address] ED Note-Nursingon 07-23-2022 ED Note-Nursing Pt discharged and wanted to wait in lobby to await ride from sister. Sister is driving from [place] to take pt home. Normal [facility] Coding Summary.on 07-22-2022 Coding Summary. Normal [facility] Consent for Treatmenton 06-30 Consent for Treatment [id number]#[id number]:127 Normal [facility] Discharge Instructionson Discharge Instructions [id number]#[id number]:127 Normal [facility] ED Clinical Summaryon 2022 ED Clinical Summary Normal [facility] ED Note-Physicianon 07-20-19 ED Note-Physician [facility] Comment on above: Result Comment: Elec tronically Signed By: Ty Manrique DObr\Date and Time Signed: 07/18/22 23:23 EDT ED Patient Education Noteon 07-19-2022 ED Patient Education Note Normal [facility] ED Patient Summaryon 023 ED Patient Summary Normal [facility] ED Traumaon 07-19-2022 ED Trauma [id number]#[id number]:127 Normal [facility] EMS Documentationon 07-20-19 EMS Documentation Normal [facility] EMS Documentation Normal [facility] EMS Documentation Normal [facility] Pre-Arrival Noteon 3 Pre-Arrival Note Normal [facility] XR Hip 2-3 Views Left + Pelv sundeep 07-19-2022 XR Hip 2-3 Views Left + Pelvis Normal [facility] XR Shoulder Complete Lefton 07-19-2022 XR Shoulder Complete Left Normal [facility] Progress Noteson 07-18-2022 [employer] Authentication Interface Message Text EMERGENCY TRIAGE, TREAT AND TRANSPORT (ET3) DOCUMENTATION OF TELEHEALTH VISIT Date / Time: 07/18/2022 / 1615 Name: Fartun Myers NOTE: CORRECT SPELLING MAY BE ZACH : 1955 SSN: (Not on file) EMS Agency: [facility] [x] Verbal consent obtained [] Implied [...] Completed by: Naseem Hardy MD Normal [facility] [employer] [facility] CHEMISTRYOrdered By: SYSTEM SYSTEM on 03-13-2022 Albumin [...] - 0.9 mg/dL [facility] Calcium [Mass/Vol] 8.6 mg/dL Low 8.9 - 11. 1 mg/dL [facility] Chloride [Moles/Vol] 105 mmol/L Normal 101 - 1 11 mmol/L [facility] CO2 [Moles/Vol] 21 mmol/L Normal 21 - 31 mmol/L [facility] Creatinine [Mass/Vol] 1.0 mg/dL Normal 0.5 - 1.3 mg/dL [facility] GFR/1.73 sq M.predicted among blacks MDRD (S/P/Bld) [Vol rate/Area] mL/min/1.73 m2 Normal >=59mL/min/1 .73 m2 [facility] Chem S GFR/1.73 sq M.predicted among non-blacks MDRD (S/P/Bld) [Vol rate/Area] 55 mL/min/1.73 m2 Low >=59mL/min/1 .73 m2 [facility] Chem S Globulin (S) [Mass/Vol] 3.3 g/dL Normal 1.4 - 4.0 gm/dL [facility] Glucose [Mass/Vol] 123 mg/dL Normal 55 - 199 mg/dL [facility] Lipase [Catalytic activity/Vol] 39 U/L Normal 13 - 58 unit/L [facility] Potassium [Moles/Vol] 4.2 mmol/L Normal 3.5 - 5.3 mmol/L [facility] Protein [Mass/Vol] 6.9 g/dL Normal 6.0 - 7.8 gm/dL [facility] Sodium [Moles/Vol] 135 mmol/L Normal 135 - 145 mmol/L [facility] Urea nitrogen [Mass/Vol] 26 mg/dL High 5 - 21 mg/d L [facility] Urea nitrogen/Creatinine [Mass ratio] 26 [...] [facility] HEMATOLOGYOrdered By: Sheila Carter on 03-13-2022 Erythrocyte distribution width (RBC) [Ratio] 13.5 % Normal 10.9 - 14.2 % [facility] Hematocrit (Bld) [Volume fraction] 32.8 % Low 34.0 - 46.0 % [facility] Hemoglobin (Bld) [Mass/Vol] 10.5 g/dL Low 12.0 - 16.0 gm/dL [facility] MCH (RBC) [Entitic mass] 28.4 pg Normal 27. 0 - 34.0 pg [facility] MCHC (RBC) [...] PM) Normal Negative [facility] UA Auto SS Bonham.[email or web address] BC (Bld) [Mass ratio] 0-3 /HPF Normal 0-3/HPF [facility] UA Au to SS Nitrite Ql (U) Negative (03/13/22 6:28 [...] [facility] UA Auto SS Urobilinogen Qn (U) [id number] {Papa'U}/dL Normal 0.0 - 1.0 EU/dL [facility] [...] 11. 1 mg/dL [facility] Remisol Chloride [Moles/Vol] 104 mmol/L Normal 101 - 1 11 mmol/L [facility] CO2 [Moles/Vol] 23 mmol/L Normal 21 - 31 mmol/L [facility] Creatinine [Mass/Vol] 0.9 mg/dL Normal 0.5 - 1.3 mg/dL [facility] GFR/1.73 sq M.predicted among blacks MDRD (S/P/Bld) [Vol rate/Area] mL/min/1.73 m2 Normal >=59mL/min/1 .73 m2 [facility] Chem S GFR/1.73 sq M.predicted among non-blacks MDRD (S/P/Bld) [Vol rate/Area] mL/min/1.73 m2 Normal >=59mL/min/1 .73 m2 [facility] Chem S Globulin (S) [Mass/Vol] 3.3 g/dL Normal 1.4 - 4.0 gm/dL [facility] Remisol Glucose [Mass/Vol] 316 mg/dL High 55 - 199 mg/dL [facility] Potassium [Moles/Vol] 3.5 mmol/L Normal 3.5 - 5.3 mmol/L [facility] Protein [Mass/Vol] 6.5 g/dL Normal 6.0 - 7.8 gm/dL [facility] Sodium [Moles/Vol] 135 mmol/L Normal 135 - 145 mmol/L [facility] Rem[facility] Urea nitrogen [Mass/Vol] 17 mg/dL Normal 5 - 21 mg/d L [facility] Rem[facility] Urea nitrogen/Creatinine [Mass ratio] 19 mg/mg [...] MCH (RBC) [Entitic mass] 29.2 pg Normal 27. 0 - 34.0 pg [facility] HemeAutoSS MCHC (RBC) [...] 7.7 E9/L Normal 4.0 - 11.0 E9/L [facility] HemeAutoSS URINALYSISOrdered By: Bridger tom on 02-08-2022 [...] PM) Normal Negative [facility] UA Auto SS Bonham.plasma/Bonham.R BC (Bld) [Mass ratio] 0-3 /HPF Normal 0-3/HPF [facility] UA Au to SS Nitrite Ql (U) Negative (02/08/22 9:05 PM) Normal Negative [facility] UA Auto SS pH (U) 7.0 *NA* (02/08/22 9:05 PM) Invalid Interpretation Code 5.0 - 9.0 [facility] UA Auto SS Protein (U) [Mass/Vol] Negative (02/08/22 9:05 PM) Normal Negative [facility] UA Auto SS Specific gravity (U) [Rel density] <=1.005 *NA* (02/08/22 9:05 PM) Invalid Interpretation Code 1.005 - 1.030 [facility] UA Auto SS UA Spec Desc Clean Catch (02/08/22 9:05 PM) Normal [facility] UA Auto SS Urobilinogen Qn (U) 0.8079601 {Papa'U}/dL Normal 0.0 - 1.0 EU/dL [facility] UA Auto SS WBC Auto Ql (U) Negative (02/08/22 9:05 PM) Normal Negative [facility] UA Auto SS WBC LM.HPF (Urine sed) [#/Area] 0-5 /HPF Normal 0-5/HPF [facility] UA Auto SS CHEMISTRYOrdered By: SYSTEM SYSTEM on 02-03-2022 Anion gap [Moles/Vol] 8 mmol/L Normal 6 - 16 mEq/L [facility] Remisol Calcium [Mass/Vol] 8.2 mg/dL Low 8.9 - 11. 1 mg/dL [facility] Remisol Chloride [Moles/Vol] 111 mmol/L Normal 101 - 1 11 mmol/L [facility] Rem[facility] CO2 [Moles/Vol] 22 mmol/L Normal 21 - 31 mmol/L [facility] Rem[facility] Creatinine [Mass/Vol] 1.2 mg/dL Normal 0.5 - 1.3 mg/dL [facility] Remisol GFR/1.73 sq M.predicted among blacks MDRD (S/P/Bld) [Vol rate/Area] 54 mL/min/1.73 m2 Low >=59mL/min/1 .73 m2 [facility] Chem S GFR/1.73 sq M.predicted among non-blacks MDRD (S/P/Bld) [Vol rate/Area] 45 mL/min/1.73 m2 Low >=59mL/min/1 .73 m2 [facility] Chem S Glucose [Mass/Vol] 165 mg/dL Normal 55 - 199 mg/dL [facility] Remisol Potassium [Moles/Vol] 3.2 mmol/L Low 3.5 - 5.3 mmol/L [facility] Rem[facility] Sodium [Moles/Vol] 138 mmol/L Normal 135 - 145 mmol/L [facility] Rem[facility] Urea nitrogen [Mass/Vol] 11 mg/dL Normal 5 - 21 mg/d L [facility] Remisol Urea nitrogen/Creatinine [Mass ratio] 9 mg/mg Low 10 - 20 [facility] Remisol CHEMISTRYOrdered By: Lab ROP User on 02-03-2022 Glucose [Mass/Vol] 186 mg/dL High 55 - 99 mg/dL [facility] POC Subsection Comment on above: Result Comment: Fausto rubi RN/ POC Device SN [id number] Invalid Interpretation Code [facility] POC Subsection POC User ID [id number] Invalid Interpretation Code [facility] POC Subsection POC Username SELVIN BARON Invalid Interpretation Code [facility] POC Subsection HEMATOLOGYOrdered By: SYSTEM SYSTEM on [...] MCH (RBC) [Entitic mass] 29.5 pg Normal 27. 0 - 34.0 pg [facility] HemeAutoSS MCHC (RBC) [Mass/Vol] 34.1 g/dL Normal 31.4 - 36.0 gm/dL [facility] HemeAutoSS MCV (RBC) [Entitic vol] 86.4 fL Normal 80.0 - 100.0 fL [facility] HemeAutoSS Platelet mean volume (Bld) [Entitic vol] 8.9 fL Normal 6.4 - 10.8 fL [facility] HemeAutoSS Platelets (Bld) [#/Vol] 145.0 E9/L Low 150. 0 - 500.0 E9/L [facility] HemeAutoSS RBC (Bld) [#/Vol] 3.2 E12/L Low 4.3 - 5.9 E12/L [facility] HemeAutoSS WBC corrected for nucl RBC Auto (Bld) [#/Vol] 5.3 E9/L Normal 4.0 - 11.0 E9/L [facility] HemeAutoSS CHEMISTRYOrdered By: Lab ROP User on 02-02-2022 Glucose [Mass/Vol] 155 mg/dL High 55 - 99 mg/dL [facility] POC Subsection Comment on above: Result Comment: Fausto rubi RN/MD POC Device SN [id number] Invalid Interpretation Code [facility] POC Subsection POC User ID [id number] Invalid Interpretation Code [facility] POC Subsection POC Username JERZY BARCENAS Invalid Interpretation Code [facility] POC Subsection Glucose [Mass/Vol] 176 mg/dL High 55 - 99 mg/dL [facility] POC Subsection Comment on above: Result Comment: Lucille ronak Meter POC Device SN [id number] Invalid Interpretation Code [facility] POC Subsection POC User ID [id number] Invalid Interpretation Code [facility] POC Subsection POC Username ETZWILER, MALHALA Invalid Interpretation Code [facility] POC Subsection CHEMISTRYOrdered By: SYSTEM SYSTEM on 02-02-2022 Anion gap [Moles/Vol] 7 mmol/L Normal 6 - 16 mEq/L [facility] Remisol Calcium [Mass/Vol] 7.8 mg/dL Low 8.9 - 11. 1 mg/dL [facility] Remisol Chloride [Moles/Vol] 115 mmol/L High 101 - 1 11 mmol/L [facility] Remisol CO2 [Moles/Vol] 22 mmol/L Normal 21 - 31 mmol/L [facility] Remisol Creatinine [Mass/Vol] 1.0 mg/dL Normal 0.5 - 1.3 mg/dL [facility] Remisol GFR/1.73 sq M.predicted among blacks MDRD (S/P/Bld) [Vol rate/Area] mL/min/1.73 m2 Normal >=59mL/min/1 .73 m2 [facility] Chem S GFR/1.73 sq M.predicted among non-blacks MDRD (S/P/Bld) [Vol rate/Area] 55 mL/min/1.73 m2 Low >=59mL/min/1 .73 m2 [facility] Chem S Glucose [Mass/Vol] 159 mg/dL Normal 55 - 199 mg/dL [facility] Remisol Potassium [Moles/Vol] 3.6 mmol/L Normal 3.5 - 5.3 mmol/L [facility] Remisol Sodium [Moles/Vol] 140 mmol/L Normal 135 - 145 mmol/L [facility] Remisol Urea nitrogen [Mass/Vol] 20 mg/dL Normal 5 - 21 mg/d L [facility] Remisol Urea nitrogen/Creatinine [Mass ratio] 20 mg/mg [...] AM) Normal Negative [facility] UA Auto SS Bonham.plasma/Bonham.R BC (Bld) [Mass ratio] 0-3 /HPF Normal 0-3/HPF [facility] UA Au to SS Nitrite Ql (U) Negative (02/02/22 7:06 [...] Desc Clean Catch (02/02/22 7:06 AM) Normal [facility] UA Auto SS Urobilinogen Qn (U) 0.7022469 {Papa'U}/dL Normal 0.0 - 1.0 EU/dL [facility] UA Auto SS WBC Auto Ql (U) Trace *ABN* (02/02/22 7:06 AM) Invalid Interpretation Code Negative [facility] UA Auto SS WBC LM.HPF (Urine sed) [#/Area] 0-5 /HPF Normal 0-5/HPF [facility] UA Auto SS CHEMISTRYOrdered By: Lab ROP User on 02-01-2022 Glucose [Mass/Vol] 261 mg/dL High 55 - 99 mg/dL [facility] POC Subsection Comment on above: Result Comment: Fausto rubi RN/ POC Device SN [id number] Invalid Interpretation Code [facility] POC Subsection POC User ID [id number] Invalid Interpretation Code [facility] POC Subsection POC Username RUFINO AIDE Invalid Interpretation Code [facility] POC Subsection CHEMISTRYOrdered By: SYSTEM SYSTEM on 02-01-2022 Anion gap [Moles/Vol] 10 mmol/L Normal 6 - 16 mEq/L [facility] Remisol Calcium [Mass/Vol] 8.2 mg/dL Low 8.9 - 11. 1 mg/dL [facility] Remisol Chloride [Moles/Vol] 108 mmol/L Normal 101 - 1 11 mmol/L [facility] Remisol CO2 [Moles/Vol] 21 mmol/L Normal 21 - 31 mmol/L [facility] Remisol GFR/1.73 sq M.predicted among blacks MDRD (S/P/Bld) [Vol rate/Area] 42 mL/min/1.73 m2 Low >=59mL/min/1 .73 m2 [facility] Chem S GFR/1.73 sq M.predicted among non-blacks MDRD (S/P/Bld) [Vol rate/Area] 35 mL/min/1.73 m2 Low >=59mL/min/1 .73 m2 [facility] Chem S Glucose [Mass/Vol] 128 mg/dL Normal 55 - 199 mg/dL [facility] Remisol Magnesium [Mass/Vol] 2.0 mg/dL Normal 1.3 - 2 .4 mg/dL [facility] Sodium [Moles/Vol] 136 mmol/L Normal 135 - 145 mmol/L [facility] Remisol Urea nitrogen [Mass/Vol] 31 mg/dL High 5 - 21 mg/d L [facility] Remisol Urea nitrogen/Creatinine [Mass ratio] 21 mg/mg High 10 - 20 [facility] Remisol CHEMISTRYOrdered By: Sylvia Smith on 02-01-2022 Creatinine [Mass/Vol] 1.5 mg/dL High 0.5 - 1.3 mg/dL [facility] Remisol Potassium [Moles/Vol] 3.3 mmol/L Low 3.5 [...] MCH (RBC) [Entitic mass] 29.2 pg Normal 27. 0 - 34.0 pg [facility] HemeAutoSS MCHC (RBC) [...] - 0.9 mg/dL [facility] Remisol Calcium [Mass/Vol] 9.4 mg/dL Normal 8.9 - 11. 1 mg/dL [facility] Remisol Chloride [Moles/Vol] 102 mmol/L Normal 101 - 1 11 mmol/L [facility] Rem[facility] CO2 [Moles/Vol] 19 mmol/L Low 21 - 31 mmol/L [facility] Remisol GFR/1.73 sq M.predicted among blacks MDRD (S/P/Bld) [Vol rate/Area] 27 mL/min/1.73 m2 Low >=59mL/min/1 .73 m2 [facility] Chem S GFR/1.73 sq M.predicted among non-blacks MDRD (S/P/Bld) [Vol rate/Area] 22 mL/min/1.73 m2 Low >=59mL/min/1 .73 m2 [facility] Chem S Globulin (S) [Mass/Vol] 3.6 g/dL Normal 1.4 - 4.0 gm/dL [facility] Remisol Glucose [Mass/Vol] 274 mg/dL High 55 - 199 mg/dL [facility] Remisol Lactate [Mass/Vol] 1.2 mmol/L Normal 0.5 - 2.2 mmol/L [facility] Lipase [Catalytic activity/Vol] 29 U/L Normal 13 - 58 unit/L [facility] Remisol Potassium [Moles/Vol] 4.4 mmol/L Normal 3.5 - 5.3 mmol/L [facility] Protein [Mass/Vol] 7.4 g/dL Normal 6.0 - 7.8 gm/dL [facility] Sodium [Moles/Vol] 135 mmol/L Normal 135 - 145 mmol/L [facility] Remisol Troponin I.cardiac [Mass/Vol] 4.30 pg/mL Low 10.10 - 27.10 pg/mL [facility] Rem[facility] Urea nitrogen [Mass/Vol] 34 mg/dL High 5 - 21 mg/d L [facility] Remisol Urea nitrogen/Creatinine [Mass ratio] 16 mg/mg Normal 10 - 20 [facility] Remisol CHEMISTRYOrdered By: Yosvany Carreon on 01-31-2022 Creatinine [Mass/Vol] 2.2 mg/dL High 0.5 - 1.3 mg/dL [facility] Remisol CHEMISTRYOrdered By: Sejal Carter on 01-31-2022 HbA1c (Bld) [Mass fraction] 9.6 % High <=5.9% [facility] ChemAutoSS HEMATOLOGYOrdered By: SYSTEM SYSTEM on 01-31-2022 Basophils/100 WBC (Bld) 0.3 % Normal 0.0 - 2.0 % [facility] HemeAutoSS Basophils/Leukocytes Auto (Bld) [Pure # fraction] [...] 7.2 E9/L Normal 2.0 - 7.5 E9/L [facility] HemeAutoSS HEMATOLOGYOrdered By: Sheila Carter on 01-31-2022 Erythrocyte distribution width (RBC) [Ratio] 13.5 % Normal 10.9 - 14.2 % [facility] HemeAutoSS Hematocrit (Bld) [Volume fraction] 35.8 % Normal 34.0 - 46.0 % [facility] HemeAutoSS Hemoglobin (Bld) [Mass/Vol] 11.7 g/dL Low 12.0 - 16.0 gm/dL [facility] HemeAutoSS MCH (RBC) [Entitic mass] 28.7 pg Normal 27. 0 - 34.0 pg [facility] HemeAutoSS MCHC (RBC) [...] - 11.0 E9/L [facility] HemeAutoSS CHEMISTRYOrdered By: Temitope ROP User on 01-30-2022 Glucose [Mass/Vol] 250 mg/dL High 55 - 99 mg/dL [facility] POC Subsection Comment on above: Result Comment: Fausto rubi RN/ POC Device SN [id number] Invalid Interpretation Code [facility] POC Subsection POC User ID [id number] Invalid Interpretation Code [facility] POC Subsection POC Username GAGANDEEP HER Invalid Interpretation Code [facility] POC Subsection Glucose [Mass/Vol] 265 mg/dL High 55 - 99 mg/dL [facility] POC Subsection Comment on above: Result Comment: Fausto rubi RN/ POC Device SN [id number] Invalid Interpretation Code [facility] POC Subsection POC User ID [id number] Invalid Interpretation Code [facility] POC Subsection POC Username GAGANDEEP HER Invalid Interpretation Code [facility] POC Subsection CHEMISTRYOrdered By: SYSTEM SYSTEM on 01-30-2022 Anion gap [Moles/Vol] 12 mmol/L Normal 6 - 16 mEq/L [facility] Remisol Calcium [Mass/Vol] 8.8 mg/dL Low 8.9 - 11. 1 mg/dL [facility] Remisol Chloride [Moles/Vol] 106 mmol/L Normal 101 - 1 11 mmol/L [facility] Remisol CO2 [Moles/Vol] 24 mmol/L Normal 21 - 31 mmol/L [facility] Creatinine [Mass/Vol] 1.1 mg/dL Normal 0.5 - 1.3 mg/dL [facility] Remisol GFR/1.73 sq M.predicted among blacks MDRD (S/P/Bld) [Vol rate/Area] 60 mL/min/1.73 m2 Normal >=59mL/min/1 .73 m2 [facility] Chem S GFR/1.73 sq M.predicted among non-blacks MDRD (S/P/Bld) [Vol rate/Area] 50 mL/min/1.73 m2 Low >=59mL/min/1 .73 m2 [facility] Chem S Glucose [Mass/Vol] 255 mg/dL High 55 - 199 mg/dL [facility] Remisol Potassium [Moles/Vol] 3.5 mmol/L Normal 3.5 - 5.3 mmol/L [facility] Remisol Sodium [Moles/Vol] 138 mmol/L Normal 135 - 145 mmol/L [facility] Remisol Urea nitrogen [Mass/Vol] 19 mg/dL Normal 5 - 21 mg/d L [facility] Remisol Urea nitrogen/Creatinine [Mass ratio] 17 mg/mg Normal 10 - 20 [facility] Remisol CHEMISTRYOrdered By: SYSTEM SYSTEM on 01-29-2022 Anion gap [Moles/Vol] 14 mmol/L Normal 6 - 16 mEq/L F [facility] Remisol Calcium [Mass/Vol] 9.1 mg/dL Normal 8.9 - 11. 1 mg/dL [facility] Remisol Chloride [Moles/Vol] 103 mmol/L Normal 101 - 1 11 mmol/L [facility] Remisol CO2 [Moles/Vol] 24 mmol/L Normal 21 - 31 mmol/L [facility] Rem[facility] Creatinine [Mass/Vol] 1.1 mg/dL Normal 0.5 - 1.3 mg/dL [facility] Remisol GFR/1.73 sq M.predicted among blacks MDRD (S/P/Bld) [Vol rate/Area] 60 mL/min/1.73 m2 Normal >=59mL/min/1 .73 m2 [facility] Chem S GFR/1.73 sq M.predicted among non-blacks MDRD (S/P/Bld) [Vol rate/Area] 50 mL/min/1.73 m2 Low >=59mL/min/1 .73 m2 [facility] Chem S Glucose [Mass/Vol] 245 mg/dL High 55 - 199 mg/dL [facility] Remisol Potassium [Moles/Vol] 3.5 mmol/L Normal 3.5 - 5.3 mmol/L [facility] Remisol Sodium [Moles/Vol] 137 mmol/L Normal 135 - 145 mmol/L [facility] Remisol Urea nitrogen [Mass/Vol] 18 mg/dL Normal 5 - 21 mg/d L [facility] Remisol Urea nitrogen/Creatinine [Mass ratio] 16 mg/mg Normal 10 - 20 [facility] Remisol Anion gap [Moles/Vol] 13 mmol/L Normal 6 - 16 mEq/L F [facility] Remisol Calcium [Mass/Vol] 9.0 mg/dL Normal 8.9 - 11. 1 mg/dL [facility] Remisol Chloride [Moles/Vol] 107 mmol/L Normal 101 - 1 11 mmol/L [facility] Remisol CO2 [Moles/Vol] 23 mmol/L Normal 21 - 31 mmol/L [facility] Remisol Creatinine [Mass/Vol] 1.2 mg/dL Normal 0.5 - 1.3 mg/dL [facility] Remisol GFR/1.73 sq M.predicted among blacks MDRD (S/P/Bld) [Vol rate/Area] 54 mL/min/1.73 m2 Low >=59mL/min/1 .73 m2 [facility] Chem S GFR/1.73 sq M.predicted among non-blacks MDRD (S/P/Bld) [Vol rate/Area] 45 mL/min/1.73 m2 Low >=59mL/min/1 .73 m2 [facility] Chem S Glucose [Mass/Vol] 151 mg/dL Normal 55 - 199 mg/dL [facility] Remisol Potassium [Moles/Vol] 3.7 mmol/L Normal 3.5 - 5.3 mmol/L [facility] Remisol Sodium [Moles/Vol] 139 mmol/L Normal 135 - 145 mmol/L [facility] Remisol Urea nitrogen [Mass/Vol] 15 mg/dL Normal 5 - 21 mg/d L [facility] Remisol Urea nitrogen/Creatinine [Mass ratio] 12 mg/mg Normal 10 - 20 [facility] Remisol CHEMISTRYOrdered By: Lab ROP User on 01-29-2022 Glucose [Mass/Vol] 248 mg/dL High 55 - 99 mg/dL [facility] POC Subsection Comment on above: Result Comment: Fausto rubi RN/ POC Device SN [id number] Invalid Interpretation Code [facility] POC Subsection POC User ID [id number] Invalid Interpretation Code [facility] POC Subsection POC Username ESTEFANY GUZMAN Invalid Interpretation Code [facility] POC Subsection CHEMISTRYOrdered By: SYSTEM SYSTEM on 01-28-2022 Albumin [Mass/Vol] 3.5 g/dL Normal 3.3 - 5.0 gm/dL [facility] Remisol Albumin/Globulin [Mass ratio] 1.0 {ratio} Low 1.1 - 2.2 [facility] Remisol ALP [Catalytic activity/Vol] 85 [iU]/d Normal 21 - 98 Int._Unit/L [facility] Remisol ALT No additional P-5'-P [Catalytic activity/Vol] 12 [iU]/d Normal 6 - 46 Int._Unit/L [facility] Remisol AST [Catalytic activity/Vol] 16 [iU]/d Normal 5 - 43 Int._Unit/L [facility] Remisol Bilirubin [Mass/Vol] 0.4 mg/dL Normal 0.0 - 1 .1 mg/dL [facility] Remisol Bilirubin.direct [Mass/Vol] mg/dL Normal 0.1 - [...] gm/dL [facility] Remisol FT Blood GasesOrdered By: aNkia Aguayo on 01-28-2022 Allens Test Not Applicable (01/28/22 1:53 PM) Normal [facility] Resp Auto SS Drawn by lab Invalid Interpretation Code [facility] Resp Auto SS FIO2 BG 21 Invalid Interpretation Code [facility] Resp Auto SS pCO2 Randall 36.7 mm[Hg] Low 38.0 - 50.0 mmHg [facility] Resp Auto SS pH Randall 7.288 Low 7.320 - 7.430 [facility] Resp Auto SS Sample Site OTHER (01/28/22 1:53 PM) Normal [facility] Resp Auto SS Sample Type Venous Draw (01/28/22 1:53 PM) Normal [facility] Resp Auto SS HEMATOLOGYOrdered By: SYSTEM SYSTEM [...] MCH (RBC) [Entitic mass] 28.6 pg Normal 27. 0 - 34.0 pg [facility] HemeAutoSS MCHC (RBC) [...] PM) Normal Negative [facility] UA Auto SS Bonham.plasma/Bonham.R BC (Bld) [Mass ratio] 0-3 /HPF Normal 0-3/HPF [facility] UA Au to SS Nitrite Ql (U) Negative (01/28/22 2:37 [...] Desc Clean Catch (01/28/22 2:37 PM) Normal [facility] UA Auto SS Urobilinogen Qn (U) 0.0492859 {Papa'U}/dL Normal 0.0 - 1.0 EU/dL [facility] UA Auto SS WBC Auto Ql (U) Negative (01/28/22 2:37 PM) Normal Negative [facility] UA Auto SS WBC LM.HPF (Urine sed) [#/Area] 0-5 /HPF Normal 0-5/HPF [facility] UA Auto SS CHEMISTRYOrdered By: Lab ROP User on 01-27-2022 Glucose [Mass/Vol] 187 mg/dL High 55 - 99 mg/dL [facility] POC Subsection Comment on above: Result Comment: Fausto rubi RN/ POC Device SN [id number] Invalid Interpretation Code [facility] POC Subsection POC User ID [id number] Invalid Interpretation Code [facility] POC Subsection POC Username ALEKSANDAR KING Invalid Interpretation Code [facility] POC Subsection CHEMISTRYOrdered By: SYSTEM SYSTEM on 01-27-2022 Albumin [Mass/Vol] 4.2 g/dL Normal 3.3 - 5.0 gm/dL [facility] [...] mg/dL [facility] Remisol Bilirubin.indirect [Mass or moles/Vol] 0.3 mg/dL Normal 0.1 - 0.9 mg/dL [facility] Remisol Calcium [Mass/Vol] 9.4 mg/dL Normal 8.9 - 11. 1 mg/dL [facility] Remisol Chloride [Moles/Vol] 102 mmol/L Normal 101 - 1 11 mmol/L [facility] Remisol CO2 [Moles/Vol] 23 mmol/L Normal 21 - 31 mmol/L [facility] Remisol Creatinine [Mass/Vol] 1.1 mg/dL Normal 0.5 - 1.3 mg/dL [facility] Remisol GFR/1.73 sq M.predicted among blacks MDRD (S/P/Bld) [Vol rate/Area] 60 mL/min/1.73 m2 Normal >=59mL/min/1 .73 m2 [facility] Chem S GFR/1.73 sq M.predicted among non-blacks MDRD (S/P/Bld) [Vol rate/Area] 50 mL/min/1.73 m2 Low >=59mL/min/1 .73 m2 [facility] Chem S Globulin (S) [Mass/Vol] 4.3 g/dL High 1.4 - 4.0 gm/dL [facility] Remisol Glucose [Mass/Vol] 295 mg/dL High 55 - 199 mg/dL [facility] Remisol Lipase [Catalytic activity/Vol] 45 U/L Normal 13 - 58 unit/L [facility] Remisol Magnesium [Mass/Vol] 2.1 mg/dL Normal 1.3 - 2 .4 mg/dL [facility] Remisol Potassium [Moles/Vol] 3.6 mmol/L Normal 3.5 - 5.3 mmol/L [facility] Remisol Protein [Mass/Vol] 8.5 g/dL High 6.0 - 7.8 gm/dL [facility] Remisol Sodium [Moles/Vol] 134 mmol/L Low 135 - 145 mmol/L [facility] Remisol Urea nitrogen [Mass/Vol] 18 mg/dL Normal 5 - 21 mg/d L [facility] Remisol Urea nitrogen/Creatinine [Mass ratio] 16 [...] MCH (RBC) [Entitic mass] 28.7 pg Normal 27. 0 - 34.0 pg [facility] HemeAutoSS MCHC (RBC) [...] PM) Normal Negative [facility] UA Auto SS Bonham.plasma/Bonham.R BC (Bld) [Mass ratio] 0-3 /HPF Normal 0-3/HPF [facility] UA Au to SS Mucus Ql (Urine sed) Trace (01/27/22 3:30 PM) Normal [facility] UA Auto SS Nitrite Ql (U) Negative [...] Desc Clean Catch (01/27/22 3:30 PM) Normal [facility] UA Auto SS Urobilinogen Qn (U) 0.0585054 {Papa'U}/dL Normal 0.0 - 1.0 EU/dL [facility] UA Auto SS WBC Auto Ql (U) Negative (01/27/22 3:30 PM) Normal Negative [facility] UA Auto SS WBC LM.HPF (Urine sed) [#/Area] 0-5 /HPF Normal 0-5/HPF [facility] UA Auto SS CHEMISTRYOrdered By: Lab ROP User on 11-17-2021 Glucose [Mass/Vol] 82 mg/dL Normal 55 - 99 mg/dL [facility] POC Subsection Comment on above: Result Comment: Lucille simons Meter POC Device SN [id number] Invalid Interpretation Code [facility] POC Subsection POC User ID [id number] Invalid Interpretation Code [facility] POC Subsection POC Username BHARGAV CANO Invalid Interpretation Code [facility] POC Subsection Glucose [Mass/Vol] 126 mg/dL High 55 - 99 mg/dL [facility] POC Subsection POC Device SN [id number] Invalid Interpretation Code [facility] POC Subsection POC User ID [id number] Invalid Interpretation Code [facility] POC Subsection POC Username AGUSTIN GARSIA Invalid Interpretation Code [facility] POC Subsection CHEMISTRYOrdered By: SYSTEM SYSTEM on 11-17-2021 Albumin [Mass/Vol] 3.7 g/dL Normal 3.3 - 5.0 gm/dL [facility] [...] 1.1 mg/dL Normal 0.5 - 1.3 mg/dL [facility] Remisol GFR/1.73 sq M.predicted among blacks MDRD (S/P/Bld) [Vol rate/Area] 60 mL/min/1.73 m2 Normal >=59mL/min/1 .73 m2 [facility] Chem S GFR/1.73 sq M.predicted among non-blacks MDRD (S/P/Bld) [Vol rate/Area] 50 mL/min/1.73 m2 Low >=59mL/min/1 .73 m2 [facility] Chem S Globulin (S) [Mass/Vol] 3.5 g/dL Normal 1.4 - 4.0 gm/dL [facility] Glucose [Mass/Vol] 105 mg/dL Normal 55 - 199 mg/dL [facility] Lipase [Catalytic activity/Vol] 30 U/L Normal 13 - 58 unit/L [facility] Potassium [Moles/Vol] 3.2 mmol/L Low 3.5 - 5.3 mmol/L [facility] Protein [Mass/Vol] 7.2 g/dL Normal 6.0 - 7.8 gm/dL [facility] Sodium [Moles/Vol] 136 mmol/L Normal 135 - 145 mmol/L [facility] Troponin I.cardiac [Mass/Vol] 3.00 pg/mL Low 10.10 - 27.10 pg/mL [facility] Urea nitrogen [Mass/Vol] 13 mg/dL Normal 5 - 21 mg/d L [facility] Urea nitrogen/Creatinine [Mass ratio] 12 [...] MCH (RBC) [Entitic mass] 29.2 pg Normal 27. 0 - 34.0 pg [facility] HemeAutoSS MCHC (RBC) [...] PM) Normal Negative [facility] UA Auto SS [email or web address] BC (Bld) [Mass ratio] 0-3 /HPF Normal 0-3/HPF [facility] UA Au to SS Nitrite Ql (U) Negative (11/17/21 7:06 [...] Desc Clean Catch (11/17/21 7:06 PM) Normal [facility] UA Auto SS Urobilinogen Qn (U) [id number] {Papa'U}/dL Normal 0.0 - 1.0 EU/dL [facility] UA Auto SS WBC Auto Ql (U) Negative (11/17/21 7:06 PM) Normal Negative [facility] UA Auto SS WBC LM.HPF (Urine sed) [#/Area] 0-5 /HPF Normal 0-5/HPF [facility] UA Auto SS Vital Signs Date Time Vital Sign Value Performing Clinician Facility 07-01-2023 14:04-0400 Blood Pressure Location Marcelo Nolio [facility] 07-01-2023 14:04-0400 Diastolic blood pressure 78 mm[Hg] Marcelo Nolio [facility] 07-01-2023 14:04-0400 Heart rate 78 /min Marcelo Nolio [facility] 07-01-2023 14:04-0400 SaO2% (BldA) [Mass fraction] 97 % [facility]ter[facility] 07-01-2023 14:04-0400 Systolic blood pressure 136 mm[Hg] Marcelo Nolio [facility] 03-03-2023 13:45-0500 Body height 162.56 cm Ashish Chester Other [email or web address] Other 03-03-2023 13:45-0500 Body temperature 97.5 [degF] Ashish Chester Other [email or web address] Other 03-03-2023 13:45-0500 Diastolic blood pressure 55 mm[Hg] Ashish Chester Other [email or web address] Other 03-03-2023 13:45-0500 Systolic blood pressure 112 mm[Hg] Ashish Chester Other [email or web address] Other 02-13-2023 09:43-0500 Diastolic blood pressure 58 mm[Hg] Joaquim Rice [facility] 02-13-2023 09:43-0500 Heart rate 60 /min Joaquim Rice [facility] 02-13-2023 09:43-0500 Respiratory rate 16 /min Joaquim Rice [facility] 02-13-2023 09:43-0500 SaO2% (BldA) [Mass fraction] 99 % Joaquim Rice [facility] 02-13-2023 09:43-0500 Systolic blood pressure 124 mm[Hg] Joaquim Rice [facility] 02-13-2023 08:39-0500 Heart rate 57 /min Joaquim Zignals [facility] 02-13-2023 08:39-0500 SaO2% (BldA) [Mass fraction] 98 % Joaquim [facility] 02-13-2023 08:37-0500 Respiratory rate 18 /min Joaquim Rice [facility] 02-13-2023 08:37-0500 Diastolic blood pressure 73 mm[Hg] Joaquim Rice [facility] 02-13-2023 08:37-0500 Mean blood pressure 94 mm[Hg] Joaquim Rice [facility] 02-13-2023 08:37-0500 Systolic blood pressure 136 mm[Hg] Joaquim Rice [facility] 02-13-2023 08:30-0500 Blood Pressure Location Joaquim Rice [facility] 02-13-2023 08:30-0500 Body temperature 98.06 [degF] Joaquim Rice [facility] 02-13-2023 08:30-0500 Diastolic blood pressure 53 mm[Hg] Joaquim Rice [facility] 02-13-2023 08:30-0500 Heart rate 61 /min Joaquimraquel Rice [facility] 02-13-2023 08:30-0500 Mean blood pressure 78 mm[Hg] Joaquim Rice [facility] 02-13-2023 08:30-0500 Respiratory rate 11 /min Joaquim Rice [facility] 02-13-2023 08:30-0500 SaO2% (BldA) [Mass fraction] 97 % Joaquim Rice [facility] 02-13-2023 08:30-0500 Systolic blood pressure 129 mm[Hg] Joaquim Rice [facility] 02-13-2023 08:20-0500 Blood Pressure Location Joaquim Rice [facility] 02-13-2023 08:20-0500 Mean blood pressure 76 mm[Hg] Joaquim Rice [facility] 02-13-2023 08:20-0500 Respiratory rate 9 /min Joaquim Rice [facility] 02-13-2023 08:15-0500 Blood Pressure Location Joaquim Rice [facility] 02-13-2023 08:15-0500 Mean blood pressure 76 mm[Hg] Joaquim Rice [facility] 02-13-2023 08:01-0500 Body temperature 97.16 [degF] Joaquim Rice [facility] 02-13-2023 07:55-0500 Respiratory rate 12 /min Joaquim Rice [facility] 02-13-2023 06:10-0500 Mean blood pressure 85 mm[Hg] Joaquim Rice [facility] 02-13-2023 06:09-0500 BP/Pulse Patient Position Joaquim Rice [facility] 02-13-2023 06:09-0500 Mean blood pressure 87 mm[Hg] Joaquim Rice [facility] 02-13-2023 06:09-0500 Heart rate 60 /min Joaquim Rice [facility] 02-13-2023 06:08-0500 Body temperature 97.7 [degF] Joaquim Rice [facility] 02-03-2023 14:15-0500 Body height 162.56 cm Ashish Chester Other [email or web address] Other 02-03-2023 14:15-0500 Body temperature 97.4 [degF] Ashish Chester Other [email or web address] Other 02-03-2023 14:15-0500 Diastolic blood pressure 58 mm[Hg] Asihsh Chester Other [email or web address] Other 02-03-2023 14:15-0500 Systolic blood pressure 103 mm[Hg] Ashish Chester Other [email or web address] Other 12-24-2022 18:02-0400 Hourly Rounding Joaquim Rice [facility] 12-24-2022 18:02-0400 Promise to Return Joaquim Rice [facility] 12-24-2022 18:00-0400 Blood Pressure Location Joaquim Rice [facility] 12-24-2022 18:00-0400 Body temperature 98.06 [degF] Joaquim Rice [facility] 12-24-2022 18:00-0400 Diastolic blood pressure 69 mm[Hg] Joaquim Rice [facility] 12-24-2022 18:00-0400 Heart rate 95 /min Joaquim Rice [facility] 12-24-2022 18:00-0400 Mean blood pressure 82 mm[Hg] Joaquim Rice [facility] 12-24-2022 18:00-0400 Respiratory rate 18 /min Joaquim Rice [facility] 12-24-2022 18:00-0400 SaO2% (BldA) [Mass fraction] 97 % Joaquim Rice [facility] 12-24-2022 18:00-0400 Systolic blood pressure 108 mm[Hg] Joaquim Rice [facility] 12-24-2022 17:41-0400 Hourly Rounding Joaquim Rice [facility] 12-24-2022 17:41-0400 Promise to Return Joaquim Rice [facility] 12-24-2022 16:00-0400 Hourly Rounding Joaquim Rice [facility] 12-24-2022 16:00-0400 Promise to Return Joaquim Rice [facility] 12-24-2022 15:43-0400 Heart rate 67 /min Joaquim Rice [facility] 12-24-2022 15:43-0400 SaO2% (BldA) [Mass fraction] 96 % Joaquim Rice [facility] 12-24-2022 15:42-0400 Body temperature 97.7 [degF] Joaquim Rice [facility] 12-24-2022 15:42-0400 Diastolic blood pressure 67 mm[Hg] Joaquim Rice [facility] 12-24-2022 15:42-0400 Mean blood pressure 87 mm[Hg] Joaquim Brown [facility] 12-24-2022 15:42-0400 Systolic blood pressure 127 mm[Hg] Joaquim Rice [facility] 12-24-2022 13:06-0400 gluc 194 mg/dL Joaquim Rice [facility] 12-24-2022 11:37-0400 Heart rate 67 /min Joaquim Rice [facility] 12-24-2022 11:37-0400 SaO2% (BldA) [Mass fraction] 95 % Joaquim Rice [facility] 12-24-2022 11:37-0400 Diastolic blood pressure 49 mm[Hg] Joaquim Rice [facility] 12-24-2022 11:37-0400 Mean blood pressure 67 mm[Hg] Joaquim Rice [facility] 12-24-2022 11:37-0400 Systolic blood pressure 103 mm[Hg] Joaquim Rice [facility] 12-24-2022 11:37-0400 Body temperature 97.7 [degF] Joaquim Rice [facility] 12-24-2022 07:39-0400 Mean blood pressure 76 mm[Hg] Joaquim Rice [facility] 12-24-2022 07:37-0400 Body temperature 97.7 [degF] Joaquim Rice [facility] 12-24-2022 02:43-0400 Respiratory rate 16 /min Joaquim Rice [facility] 12-24-2022 00:01-0400 Body temperature 99.68 [degF] Joaquim Rice [facility] 12-24-2022 00:01-0400 Respiratory rate 16 /min Joaquimraquel Rice [facility] 12-23-2022 12:00-0400 Blood Pressure Location Joaquim Rice [facility] 12-23-2022 12:00-0400 Body temperature 97.34 [degF] Joaquim [facility] 12-23-2022 12:00-0400 Heart rate 62 /min Joaquim [facility] 12-22-2022 23:45-0400 gluc 123 mg/dL Joaquim [facility] 12-22-2022 20:10-0400 Blood Pressure Location Joaquim Rice [facility] 12-22-2022 20:10-0400 Mean blood pressure 88 mm[Hg] Joaquim [facility] 12-22-2022 12:37-0400 gluc 126 mg/dL Joaquim [facility] 12-21-2022 20:00-0400 Mean blood pressure 67 mm[Hg] Joaquim [facility] 12-20-2022 19:15-0400 Respiratory rate 16 /min Joaquim [facility] 12-20-2022 19:00-0400 Respiratory rate 18 /min Joaquim [facility] 12-20-2022 18:45-0400 Respiratory rate 11 /min Joaquim [facility] 12-20-2022 16:21-0400 Heart rate 75 /min Joqauim [facility]ignals [facility] 12-19-2022 17:25-0400 Heart rate 66 /min Joaquim [facility]als [facility] 12-19-2022 16:52-0400 Diastolic blood pressure 46 mm[Hg] Joaquim Rice [facility] 12-19-2022 16:52-0400 Systolic blood pressure 105 mm[Hg] Joaquim Rice [facility] 11-29-2022 12:19-0400 Hourly Rounding Reymundoelver ARGUETASLIN [facility] 11-29-2022 12:19-0400 Promise to Return Reymundo JULIAN [facility] 11-29-2022 11:43-0400 Hourly Rounding Reymundo JULIAN [facility] 11-29-2022 11:43-0400 Promise to Return Reymundo JULIAN [facility] 11-29-2022 11:25-0400 Heart rate 79 /min Reymundo JULIAN [facility] 11-29-2022 11:25-0400 SaO2% (BldA) [Mass fraction] 92 % Reymundo JULIAN [facility] 11-29-2022 11:22-0400 Diastolic blood pressure 73 mm[Hg] Reymundo JULIAN [facility] 11-29-2022 11:22-0400 Mean blood pressure 97 mm[Hg] Reymundo JULIAN [facility] 11-29-2022 11:22-0400 Systolic blood pressure 143 mm[Hg] Reymundo JULIAN [facility] 11-29-2022 11:22-0400 Body temperature 98.06 [degF] Reymundo JULIAN [facility] 11-29-2022 10:33-0400 Hourly Rounding Reymundo JULIAN [facility] 11-29-2022 10:33-0400 Promise to Return Reymundo JULIAN [facility] 11-29-2022 09:40-0400 Diastolic blood pressure 75 mm[Hg] Reymundo JULIAN [facility] 11-29-2022 09:40-0400 Systolic blood pressure 160 mm[Hg] Reymundo JULIAN [facility] 11-29-2022 08:17-0400 Heart rate 83 /min Reymundo JULIAN [facility] 11-29-2022 08:17-0400 SaO2% (BldA) [Mass fraction] 93 % Reymundo JULIAN [facility] 11-29-2022 08:17-0400 Diastolic blood pressure 75 mm[Hg] Reymundo JULIAN [facility] 11-29-2022 08:17-0400 Mean blood pressure 104 mm[Hg] Reymundo JULIAN [facility] 11-29-2022 08:17-0400 Systolic blood pressure 160 mm[Hg] Reymundo JULIAN [facility] 11-29-2022 08:17-0400 Body temperature 97.88 [degF] Reymundo JULIAN [facility] 11-28-2022 23:45-0400 Blood Pressure Location Reymundo JULIAN [facility] 11-28-2022 23:45-0400 Body temperature 97.7 [degF] Reymundo JULIAN [facility] 11-28-2022 23:45-0400 Heart rate 68 /min Reymundo JULIAN [facility] 11-28-2022 23:45-0400 SaO2% (BldA) [Mass fraction] 95 % Reymundoelver ARGUETASLIN [facility] 11-28-2022 15:54-0400 Mean blood pressure 93 mm[Hg] Reymundo JULIAN [facility] 11-28-2022 15:54-0400 Body temperature 100.22 [degF] Reymundo JULIAN [facility] 11-28-2022 08:40-0400 Blood Pressure Location Reymundoelver ARGUETASLIN [facility] 11-28-2022 08:40-0400 Body temperature 97.88 [degF] Reymundoelver [facility]ASLIN [facility] 11-28-2022 08:40-0400 Mean blood pressure 86 mm[Hg] Reymundoelver [facility] 11-28-2022 08:40-0400 Respiratory rate 16 /min Reymundo JULIAN [facility] 11-28-2022 00:15-0400 Blood Pressure Location Reymundoelver [facility] 11-28-2022 00:15-0400 Respiratory rate 16 /min Reymundoelver [facility] 11-27-2022 16:43-0400 Mean blood pressure 90 mm[Hg] Reymundo JULIAN [facility] 11-27-2022 11:40-0400 Mean blood pressure 79 mm[Hg] Reymundo JULIAN [facility] 11-27-2022 01:48-0400 Heart rate 18 /min Reymundo JULIAN [facility] 11-26-2022 16:27-0400 Heart rate 78 /min Reymundo JULIAN [facility] 11-26-2022 16:27-0400 Respiratory rate 18 /min Reymundo JULIAN [facility] 11-26-2022 11:43-0400 Heart rate 80 /min Reymundo JULIAN [facility] 11-25-2022 17:25-0400 Respiratory rate 13 /min Reymundo JULIAN [facility] 11-25-2022 17:00-0400 Respiratory rate 11 /min Reymundo JULIAN [facility] 11-25-2022 05:43-0400 gluc 98 mg/dL Reymundo JULIAN [facility] 11-24-2022 19:24-0400 gluc 115 mg/dL Reymundo JULIAN [facility] 11-24-2022 19:00-0400 Heart rate 70 /min Reymundo JULIAN [facility] 11-24-2022 12:25-0400 gluc 149 mg/dL Reymundo JULIAN [facility] 10-02-2022 15:23-0400 Body temperature 97.88 [degF] Raul Arnold [facility] 10-02-2022 15:23-0400 Diastolic blood pressure 80 mm[Hg] Raul Arnold [facility] 10-02-2022 15:23-0400 Heart rate 79 /min Raul Arnold [facility] 10-02-2022 15:23-0400 Respiratory rate 16 /min Raul Arnold [facility] 10-02-2022 15:23-0400 SaO2% (BldA) [Mass fraction] 100 % Raul Arnold [facility] 10-02-2022 15:23-0400 Systolic blood pressure 133 mm[Hg] Raul Arnold [facility] 09-04-2022 21:30-0400 Diastolic blood pressure 72 mm[Hg] Hari Michelle [facility] 09-04-2022 21:30-0400 Heart rate 60 /min Hari Michelle [facility] 09-04-2022 21:30-0400 Mean blood pressure 100 mm[Hg] Hari Michelle [facility] 09-04-2022 21:30-0400 Respiratory rate 15 /min Hari Michelle [facility] 09-04-2022 21:30-0400 SaO2% (BldA) [Mass fraction] 97 % Hari Michelle [facility] 09-04-2022 21:30-0400 Systolic blood pressure 155 mm[Hg] Hari Michelle [facility] 09-04-2022 20:40-0400 Body temperature 97.52 [degF] Hari Michelle [facility] 09-04-2022 20:40-0400 Diastolic blood pressure 80 mm[Hg] Hari Michelle [facility] 09-04-2022 20:40-0400 Heart rate 67 /min Hari Michelle [facility] 09-04-2022 20:40-0400 Respiratory rate 17 /min Hari Michelle [facility] 09-04-2022 20:40-0400 SaO2% (BldA) [Mass fraction] 95 % Hari Michelle [facility] 09-04-2022 20:40-0400 Systolic blood pressure 176 mm[Hg] Hari Michelle [facility] 09-04-2022 20:25-0400 Body temperature 97.52 [degF] Hari Michelle [facility] 09-04-2022 20:25-0400 Diastolic blood pressure 75 mm[Hg] Marcelo Link [facility] 09-04-2022 20:25-0400 Heart rate 62 /min Hari Michelle [facility] 09-04-2022 20:25-0400 Respiratory rate 18 /min Hari Michelle [facility] 09-04-2022 20:25-0400 SaO2% (BldA) [Mass fraction] 99 % Hari Michelle [facility] 09-04-2022 20:25-0400 Systolic blood pressure 188 mm[Hg] Hrai Michelle [facility] 09-04-2022 19:04-0400 Body temperature 97.88 [degF] Marcelo Link [facility] 09-04-2022 19:04-0400 Diastolic blood pressure 58 mm[Hg] Marcelo Link [facility] 09-04-2022 19:04-0400 Heart rate 63 /min Marcelo Link [facility] 09-04-2022 19:04-0400 Respiratory rate 15 /min Marcelo Link [facility] 09-04-2022 19:04-0400 SaO2% (BldA) [Mass fraction] 98 % Marcelo Link [facility] 09-04-2022 19:04-0400 Systolic blood pressure 139 mm[Hg] Marcelo Link [facility] 09-04-2022 18:32-0400 Body temperature 98.06 [degF] Marcelo Link [facility] 09-04-2022 18:32-0400 Diastolic blood pressure 64 mm[Hg] Marcelo Link [facility] 09-04-2022 18:32-0400 Heart rate 62 /min Marcelo Link [facility] 09-04-2022 18:32-0400 Mean blood pressure 92 mm[Hg] Marcelo Link [facility] 09-04-2022 18:32-0400 Respiratory rate 16 /min Marcelo Link [facility] 09-04-2022 18:32-0400 SaO2% (BldA) [Mass fraction] 97 % Marcelo Link [facility] 09-04-2022 18:32-0400 Systolic blood pressure 149 mm[Hg] Marcelo Link [facility] 09-04-2022 17:15-0400 Body temperature 97.7 [degF] Marcelo Link [facility] 09-04-2022 17:00-0400 Heart rate 64 /min Marcelo Link [facility] 09-04-2022 17:00-0400 Mean blood pressure 96 mm[Hg] Marcelo Link [facility] 09-04-2022 17:00-0400 Systolic blood pressure 137 mm[Hg] Marcelo Link [facility] 09-04-2022 15:10-0400 gluc 241 mg/dL Marcelo Link [facility] 09-04-2022 15:10-0400 gluc Marcelo Link [facility] 09-04-2022 15:00-0400 Hourly Rounding Marcelo Link [facility] 09-04-2022 15:00-0400 Promise to Return Marcelo Link [facility] 08-09-2022 14:34-0400 Body temperature 97.7 [degF] Raul Clayton [facility] 08-09-2022 14:29-0400 Diastolic blood pressure 64 mm[Hg] Raul Clayton [facility] 08-09-2022 14:29-0400 Heart rate 60 /min Raul Clayton [facility] 08-09-2022 14:29-0400 Mean blood pressure 88 mm[Hg] Raul Clayton [facility] 08-09-2022 14:29-0400 Respiratory rate 14 /min Raul Clayton [facility] 08-09-2022 14:29-0400 SaO2% (BldA) [Mass fraction] 95 % Raul Clayton [facility] 08-09-2022 14:29-0400 Systolic blood pressure 136 mm[Hg] Raul Clayton [facility] 08-09-2022 13:45-0400 Diastolic blood pressure 59 mm[Hg] Raul Clayton [facility] 08-09-2022 13:45-0400 Heart rate 62 /min Raul Clayton [facility] 08-09-2022 13:45-0400 Mean blood pressure 83 mm[Hg] Raul Clayton [facility] 08-09-2022 13:45-0400 Respiratory rate 10 /min Raul Clayton [facility] 08-09-2022 13:45-0400 SaO2% (BldA) [Mass fraction] 96 % Raul Clayton [facility] 08-09-2022 13:45-0400 Systolic blood pressure 130 mm[Hg] Raul Clayton [facility] 08-09-2022 13:32-0400 Body temperature 97.52 [degF] Raul Clayton [facility] 08-09-2022 13:32-0400 Diastolic blood pressure 57 mm[Hg] Raul Arnold [facility] 08-09-2022 13:32-0400 Heart rate 66 /min Raul Clayton [facility] 08-09-2022 13:32-0400 Respiratory rate 18 /min Raul Clayton [facility] 08-09-2022 13:32-0400 SaO2% (BldA) [Mass fraction] 95 % Raul Arnold [facility] 08-09-2022 13:32-0400 Systolic blood pressure 130 mm[Hg] Raul Clayton [facility] 08-09-2022 12:19-0400 gluc 212 mg/dL Raul Clayton [facility] 08-09-2022 12:19-0400 gluc Raul Arnlod [facility] 08-09-2022 12:17-0400 Body temperature 97.88 [degF] Raul Arnold [facility] 05-12-2023 12:17-0400 Heart rate 74 /min Raul Clayton [facility] 08-09-2022 12:17-0400 Respiratory rate 16 /min Raul Clayton [facility] 07-18-2022 22:45-0400 Body temperature 98.06 [degF] Kaylinn Dokken [facility] 07-18-2022 22:45-0400 Diastolic blood pressure 56 mm[Hg] Kaylinn Dokken [facility] 07-18-2022 22:45-0400 Heart rate 80 /min Kaylinn Dokken [facility] 07-18-2022 22:45-0400 Respiratory rate 18 /min Kaylinn Dokken [facility] 07-18-2022 22:45-0400 SaO2% (BldA) [Mass fraction] 97 % Kaylinn Dokken [facility] 07-18-2022 22:45-0400 Systolic blood pressure 130 mm[Hg] Kaylinn Dokken [facility] 07-18-2022 22:30-0400 Body temperature 98.06 [degF] Kaylinn Dokken [facility] 07-18-2022 22:30-0400 Diastolic blood pressure 58 mm[Hg] Kaylinn Dokken [facility] 07-18-2022 22:30-0400 Heart rate 85 /min Kaylinn Dokken [facility] 07-18-2022 22:30-0400 Respiratory rate 16 /min Kaylinn Dokken [facility] 07-18-2022 22:30-0400 SaO2% (BldA) [Mass fraction] 95 % Ty Duvallkken [facility] 07-18-2022 22:30-0400 Systolic blood pressure 101 mm[Hg] Yulyn Dokken [facility] 07-18-2022 16:15-0400 Diastolic blood pressure 84 mm[Hg] Et3 [facility] 07-18-2022 16:15-0400 Heart rate 90 /min Et3 [facility] 07-18-2022 16:15-0400 Respiratory rate 16 /min Et3 [facility] 07-18-2022 16:15-0400 SaO2% (BldA) [Mass fraction] 98 % Et3 [facility] 07-18-2022 16:15-0400 Systolic blood pressure 135 mm[Hg] Et3 [facility] 04-10-2022 11:05-0500 Diastolic blood pressure 83 mm[Hg] Callahan SALAM [facility] 04-10-2022 11:05-0500 Mean blood pressure 106 mm[Hg] Callahan SALAM [facility] 04-10-2022 11:05-0500 Systolic blood pressure 151 mm[Hg] Callahan SALAM [facility] 04-10-2022 11:02-0500 Blood Pressure Location Callahan SALAM [facility] 04-10-2022 11:02-0500 Diastolic blood pressure 86 mm[Hg] Callahan SALAM [facility] 04-10-2022 11:02-0500 Heart rate 70 /min Callahan SALAM [facility] 04-10-2022 11:02-0500 Respiratory rate 16 /min Callahan SALAM [facility] 04-10-2022 11:02-0500 SaO2% (BldA) [Mass fraction] 98 % [place] DIAZ [facility] 04-10-2022 11:02-0500 Systolic blood pressure 142 mm[Hg] [place] NICOLASAM [facility] 04-03-2022 18:00-0500 Diastolic blood pressure 54 mm[Hg] Raul Arnold [facility] 04-03-2022 18:00-0500 Heart rate 66 /min Raul Clayton [facility] 04-03-2022 18:00-0500 Mean blood pressure 78 mm[Hg] Raul Clayton [facility] 04-03-2022 18:00-0500 Respiratory rate 11 /min Raul Clayton [facility] 04-03-2022 18:00-0500 SaO2% (BldA) [Mass fraction] 92 % Raul Clayton [facility] 04-03-2022 18:00-0500 Systolic blood pressure 126 mm[Hg] Raul Clayton [facility] 04-03-2022 16:51-0500 Body temperature 98.24 [degF] Raul Clayton [facility] 04-03-2022 16:51-0500 Diastolic blood pressure 72 mm[Hg] Raul Clayton [facility] 04-03-2022 16:51-0500 Heart rate 72 /min Raul Clayton [facility] 04-03-2022 16:51-0500 Respiratory rate 16 /min Raul Clayton [facility] 04-03-2022 16:51-0500 SaO2% (BldA) [Mass fraction] 99 % Raul Arnlod [facility] 04-03-2022 16:51-0500 Systolic blood pressure 120 mm[Hg] Raul Arnold [facility] 04-03-2022 16:36-0500 Body temperature 98.24 [degF] Raul Arnold [facility] 04-03-2022 16:36-0500 Diastolic blood pressure 52 mm[Hg] Raul Arnold [facility] 04-03-2022 16:36-0500 Heart rate 71 /min Raul Arnold [facility] 04-03-2022 16:36-0500 Respiratory rate 16 /min Raul Arnold [facility] 04-03-2022 16:36-0500 SaO2% (BldA) [Mass fraction] 99 % Raul Arnold [facility] 04-03-2022 16:36-0500 Systolic blood pressure 135 mm[Hg] Raul Arnold [facility] 04-02-2022 10:15-0500 Diastolic blood pressure 69 mm[Hg] Brady Yves [facility] 04-02-2022 10:15-0500 Heart rate 66 /min Brady Marinelli [facility] 04-02-2022 10:15-0500 Respiratory rate 20 /min Brady Marinelli [facility] 04-02-2022 10:15-0500 SaO2% (BldA) [Mass fraction] 97 % Brady Marinelli [facility] 04-02-2022 10:15-0500 Systolic blood pressure 150 mm[Hg] Brady Marinelli [facility] 04-02-2022 09:44-0500 Body temperature 97.52 [degF] Brady Marinelli [facility] 04-02-2022 09:44-0500 Diastolic blood pressure 81 mm[Hg] Brady Marinelli [facility] 04-02-2022 09:44-0500 Heart rate 64 /min Brady Marinelli [facility] 04-02-2022 09:44-0500 Respiratory rate 20 /min Bardy Marinelli [facility] 04-02-2022 09:44-0500 SaO2% (BldA) [Mass fraction] 95 % Brady Marinelli [facility] 04-02-2022 09:44-0500 Systolic blood pressure 138 mm[Hg] Brady Marinelli [facility] 03-13-2022 19:11-0500 Diastolic blood pressure 45 mm[Hg] Raul Arnold [facility] 03-13-2022 19:11-0500 Heart rate 65 /min Raul Arnold [facility] 03-13-2022 19:11-0500 Mean blood pressure 74 mm[Hg] Raul Clayton [facility] 03-13-2022 19:11-0500 Respiratory rate 18 /min Raul Clayton [facility] 03-13-2022 19:11-0500 SaO2% (BldA) [Mass fraction] 99 % Raul Clayton [facility] 03-13-2022 19:11-0500 Systolic blood pressure 133 mm[Hg] Raul Clayton [facility] 03-13-2022 18:00-0500 Diastolic blood pressure 56 mm[Hg] Rual Arnold [facility] 03-13-2022 18:00-0500 Heart rate 66 /min Raul Clayton [facility] 03-13-2022 18:00-0500 SaO2% (BldA) [Mass fraction] 91 % Raul Clayton [facility] 03-13-2022 18:00-0500 Systolic blood pressure 171 mm[Hg] Raul Clayton [facility] 03-13-2022 16:38-0500 Body temperature 97.52 [degF] Raul Arnold [facility] 03-13-2022 16:38-0500 Diastolic blood pressure 61 mm[Hg] Raul Arnold [facility] 03-13-2022 16:38-0500 Heart rate 67 /min Raul Clayton [facility] 03-13-2022 16:38-0500 Mean blood pressure 94 mm[Hg] Raul Arnold [facility] 03-13-2022 16:38-0500 Respiratory rate 18 /min Raul Arnold [facility] 03-13-2022 16:38-0500 SaO2% (BldA) [Mass fraction] 95 % Raul Arnold [facility] 03-13-2022 16:38-0500 Systolic blood pressure 160 mm[Hg] Raul Clayton [facility] [facility] 02-[facility]-2022 22:25-0500 Diastolic blood pressure 77 mm[Hg] Ty Manrique [facility] 02-08-2022 22:25-0500 Heart rate 79 /min Kaylinn Dokken [facility] 02-08-2022 22:25-0500 Respiratory rate 18 /min Orquideaylinn Dokken [facility] 02-08-2022 22:25-0500 SaO2% (BldA) [Mass fraction] 96 % Jairinn Dokken [facility] 02-08-2022 22:25-0500 Systolic blood pressure 185 mm[Hg] Orquideaylinn Dokken [facility] 02-08-2022 21:51-0500 Diastolic blood pressure 79 mm[Hg] Orquideaylinn Dokken [facility] 02-08-2022 21:51-0500 Heart rate 78 /min Yulyn Dokken [facility] 02-08-2022 21:51-0500 Hourly Rounding Yulyn Husseinen [facility] 02-08-2022 21:51-0500 Nursing Progress Note Reason Other: Pt mediciated per orders. Call light in reach. Denies any needs at this time. Yulyn Dokken [facility] 02-08-2022 21:51-0500 Respiratory rate 18 /min Jairinn Dokken [facility] 02-08-2022 21:51-0500 SaO2% (BldA) [Mass fraction] 96 % Jairinn Dokken [facility] 02-08-2022 21:51-0500 Systolic blood pressure 176 mm[Hg] Kaylinn Dokken [facility] 02-08-2022 21:15-0500 Diastolic blood pressure 66 mm[Hg] Kaylinn Dokken [facility] 02-08-2022 21:15-0500 Heart rate 74 /min Ty Manrique [facility] 02-08-2022 21:15-0500 Hourly Rounding Ty Manrique [facility] 02-08-2022 21:15-0500 Nursing Progress Note Reason Other: UA obtained and sent to lab. Ty Manrique [facility] 02-08-2022 21:15-0500 Respiratory rate 18 /min Ty Manrique [facility] 02-08-2022 21:15-0500 SaO2% (BldA) [Mass fraction] 96 % Ty Manrique [facility] 02-08-2022 21:15-0500 Systolic blood pressure 154 mm[Hg] Ty Manrique [facility] 02-08-2022 20:30-0500 Body temperature 98.24 [degF] Ty Manrique [facility] 02-03-2022 05:00-0500 Body temperature 98.24 [degF] Vadim Naseem [facility] 02-03-2022 05:00-0500 Diastolic blood pressure 66 mm[Hg] Vadim Naseem [facility] 02-03-2022 05:00-0500 Heart rate 63 /min Vadim Naseem [facility] 02-03-2022 05:00-0500 Mean blood pressure 95 mm[Hg] Vadim Naseem [facility] 02-03-2022 05:00-0500 Respiratory rate 13 /min Vadim Naseem [facility] 02-03-2022 05:00-0500 SaO2% (BldA) [Mass fraction] 90 % Vadim Gusman [facility] 02-03-2022 05:00-0500 Systolic blood pressure 153 mm[Hg] Vadim Gusman [facility] 02-03-2022 04:00-0500 Body temperature 98.6 [degF] Vadim Gusman [facility] 02-03-2022 04:00-0500 Diastolic blood pressure 69 mm[Hg] Vadim Gusman [facility] 02-03-2022 04:00-0500 Mean blood pressure 99 mm[Hg] Vadim Gusman [facility] 02-03-2022 04:00-0500 Respiratory rate 14 /min Vadim Gusman [facility] 02-03-2022 04:00-0500 SaO2% (BldA) [Mass fraction] 92 % Vadim Gusman [facility] 02-03-2022 04:00-0500 Systolic blood pressure 159 mm[Hg] Vadim Gusman [facility] 02-03-2022 03:00-0500 Mean blood pressure 100 mm[Hg] Vadim Gusman [facility] 02-03-2022 03:00-0500 Respiratory rate 39 /min Vadim Gusman [facility] 02-03-2022 03:00-0500 SaO2% (BldA) [Mass fraction] 91 % Vadim Gusman [facility] 02-03-2022 03:00-0500 Systolic blood pressure 163 mm[Hg] Vadim Gusman [facility] 02-03-2022 01:14-0500 gluc 186 mg/dL Vaidm Naseem [facility] 02-03-2022 01:14-0500 gluc Vadim Gusman [facility] 02-03-2022 01:10-0500 Heart rate 70 /min Vadim Naseem [facility] 02-03-2022 01:10-0500 Respiratory rate 20 /min Vadim Naseem [facility] 02-02-2022 14:00-0400 Blood Pressure Location [facility] 02-02-2022 14:00-0400 BP/Pulse Patient Position [facility] 02-02-2022 14:00-0400 Respiratory rate 18 /min [facility] 02-02-2022 13:00-0400 Hourly Rounding [facility] 02-02-2022 12:33-0400 Hourly Rounding [facility] 02-02-2022 12:33-0400 Promise to Return [facility] 02-02-2022 11:09-0400 Body temperature 97.88 [degF] [facility] 02-02-2022 11:09-0400 Diastolic blood pressure 75 mm[Hg] [facility] 02-02-2022 11:09-0400 Heart rate 65 /min [facility] 02-02-2022 11:09-0400 Mean blood pressure 101 mm[Hg] [facility] 02-02-2022 11:09-0400 SaO2% (BldA) [Mass fraction] 94 % [facility] 02-02-2022 11:09-0400 Systolic blood pressure 154 mm[Hg] [facility] 02-02-2022 11:09-0400 Respiratory rate 20 /min [facility] 02-02-2022 11:00-0400 Hourly Rounding [facility] 02-02-2022 08:58-0400 Promise to Return [facility] 02-02-2022 07:29-0400 Body temperature 97.88 [degF] [facility] 02-02-2022 07:29-0400 Diastolic blood pressure 65 mm[Hg] [facility] 02-02-2022 07:29-0400 Heart rate 69 /min [facility] 02-02-2022 07:29-0400 Mean blood pressure 95 mm[Hg] [facility] 02-02-2022 07:29-0400 SaO2% (BldA) [Mass fraction] 92 % [facility] 02-02-2022 07:29-0400 Systolic blood pressure 153 mm[Hg] [facility] 02-02-2022 06:21-0400 Promise to Return [facility] 02-02-2022 02:05-0400 Body temperature 97.7 [degF] [facility] 02-02-2022 02:05-0400 Diastolic blood pressure 62 mm[Hg] [facility] 02-02-2022 02:05-0400 Heart rate 73 /min [facility] 02-02-2022 02:05-0400 Mean blood pressure 78 mm[Hg] [facility] 02-02-2022 02:05-0400 SaO2% (BldA) [Mass fraction] 93 % [facility] 02-02-2022 02:05-0400 Systolic blood pressure 112 mm[Hg] [facility] 02-01-2022 21:24-0400 gluc 261 mg/dL [facility] 02-01-2022 19:35-0400 Blood Pressure Location [facility] 02-01-2022 19:35-0400 BP/Pulse Patient Position [facility] 02-01-2022 19:35-0400 Respiratory rate 16 /min [facility] 02-01-2022 16:59-0400 gluc 225 mg/dL [facility] 02-01-2022 16:11-0400 Blood Pressure Location [facility] 02-01-2022 16:11-0400 BP/Pulse Patient Position [facility] 02-01-2022 11:11-0400 Mean blood pressure 123 mm[Hg] [facility] 02-01-2022 08:33-0400 Heart rate 78 /min [facility] 02-01-2022 08:08-0400 gluc 119 mg/dL [facility] 02-01-2022 05:20-0400 Heart rate 88 /min [facility] 02-01-2022 03:08-0400 Mean blood pressure 82 mm[Hg] [facility] 02-01-2022 01:01-0400 Mean blood pressure 88 mm[Hg] [facility] 01-31-2022 21:13-0400 Heart rate 83 /min [facility] 01-30-2022 14:00-0400 Mean blood pressure 88 mm[Hg] [facility] 01-30-2022 12:19-0400 Hourly Rounding [facility] 01-30-2022 12:19-0400 [facility] 01-30-2022 12:00-0400 Body temperature 98.06 [degF] [facility] 01-30-2022 12:00-0400 Diastolic blood pressure 72 mm[Hg] [facility] 01-30-2022 12:00-0400 Heart rate 71 /min [facility] 01-30-2022 12:00-0400 SaO2% (BldA) [Mass fraction] 96 % [facility] 01-30-2022 12:00-0400 Systolic blood pressure 122 mm[Hg] [facility] 01-30-2022 11:19-0400 Hourly Rounding [facility] 01-30-2022 11:19-0400 [facility] 01-30-[facility]22 10:48-0400 Hourly Rounding [facility] 01-30-2022 10:48-0400 [facility] 01-30-2022 08:00-0400 Body temperature 97.52 [degF] [facility] 01-30-2022 08:00-0400 Diastolic blood pressure 49 mm[Hg] [facility] 01-30-2022 08:00-0400 Heart rate 79 /min [facility] 01-30-2022 08:00-0400 SaO2% (BldA) [Mass fraction] 91 % [facility] 01-30-2022 08:00-0400 Systolic blood pressure 132 mm[Hg] [facility] 01-30-2022 06:00-0400 Diastolic blood pressure 46 mm[Hg] [facility] 01-30-2022 06:00-0400 Heart rate 64 /min [facility] 01-30-2022 06:00-0400 Mean blood pressure 70 mm[Hg] [facility] 01-30-2022 06:00-0400 Respiratory rate 19 /min [facility] 01-30-2022 06:00-0400 SaO2% (BldA) [Mass fraction] 94 % [facility] 01-30-2022 06:00-0400 Systolic blood pressure 110 mm[Hg] [facility] 01-30-2022 05:00-0400 Respiratory rate 14 /min [facility] 01-30-2022 04:00-0400 Body temperature 97.88 [degF] [facility] 01-30-2022 04:00-0400 Mean blood pressure 73 mm[Hg] [facility] 01-30-2022 00:00-0400 Body temperature 97.52 [degF] [facility] 01-29-2022 19:00-0400 Body temperature 98.06 [degF] [facility] 01-29-2022 16:31-0400 gluc 154 mg/dL [facility] 01-29-2022 11:00-0400 gluc 211 mg/dL [facility] 01-29-2022 08:00-0400 gluc 130 mg/dL [facility] 01-29-2022 07:00-0400 Blood Pressure Location [facility] 01-28-2022 19:00-0400 Respiratory rate 14 /min [facility] 01-28-2022 18:14-0400 Heart rate 73 /min [facility] 01-28-2022 18:14-0400 Respiratory rate 15 /min ramona [facility] 01-28-2022 17:00-0400 Respiratory rate 18 /min [facility] 01-28-2022 12:01-0400 Heart rate 99 /min [facility] 01-27-2022 17:31-0400 Diastolic blood pressure 60 mm[Hg] [facility] 01-27-2022 17:31-0400 Heart rate 63 /min [facility] 01-27-2022 17:31-0400 Mean blood pressure 99 mm[Hg] [facility] 01-27-2022 17:31-0400 Respiratory rate 20 /min [facility] 01-27-2022 17:31-0400 SaO2% (BldA) [Mass fraction] 97 % [facility] 01-27-2022 17:31-0400 Systolic blood pressure 177 mm[Hg] [facility] 01-27-2022 16:59-0400 Diastolic blood pressure 81 mm[Hg] [facility] 01-27-2022 16:59-0400 Heart rate 68 /min [facility] 01-27-2022 16:59-0400 Mean blood pressure 117 mm[Hg] [facility] 01-27-2022 16:59-0400 Respiratory rate 19 /min [facility] 01-27-2022 16:59-0400 SaO2% (BldA) [Mass fraction] 97 % [facility] 01-27-2022 16:59-0400 Systolic blood pressure 190 mm[Hg] [facility] 01-27-2022 16:00-0400 Diastolic blood pressure 73 mm[Hg] [facility] 01-27-2022 16:00-0400 Mean blood pressure 106 mm[Hg] [facility] 01-27-2022 16:00-0400 SaO2% (BldA) [Mass fraction] 99 % [facility] 01-27-2022 16:00-0400 Systolic blood pressure 171 mm[Hg] [facility] 01-27-2022 14:45-0400 Body temperature 97.88 [degF] [facility] 01-27-2022 14:45-0400 Heart rate 65 /min [facility] 11-17-2021 19:35-0400 Diastolic blood pressure 83 mm[Hg] Brady Yves [facility] 11-17-2021 19:35-0400 Heart rate 73 /min Brady Yves [facility] 11-17-2021 19:35-0400 Hourly Rounding Brady Godfreye [facility] 11-17-2021 19:35-0400 Respiratory rate 18 /min Brady Godfreye [facility] 11-17-2021 19:35-0400 SaO2% (BldA) [Mass fraction] 94 % Brady Yves [facility] 11-17-2021 19:35-0400 Systolic blood pressure 186 mm[Hg] Brady Yves [facility] 11-17-2021 18:28-0400 Diastolic blood pressure 59 mm[Hg] Brady Godfreye [facility] 11-17-2021 18:28-0400 Heart rate 69 /min Brady Yves [facility] 11-17-2021 18:28-0400 Mean blood pressure 96 mm[Hg] Brady Yves [facility] 11-17-2021 18:28-0400 Respiratory rate 14 /min Brady Godfreye [facility] 11-17-2021 18:28-0400 SaO2% (BldA) [Mass fraction] 93 % Brady Yves [facility] 11-17-2021 18:28-0400 Systolic blood pressure 171 mm[Hg] Brady Yves [facility] 11-17-2021 17:30-0400 Body temperature 97.88 [degF] Brady Yves [facility] 11-17-2021 17:30-0400 Diastolic blood pressure 75 mm[Hg] Brady Marinelli [facility] 11-17-2021 17:30-0400 Heart rate 78 /min Brady Marinelli [facility] 11-17-2021 17:30-0400 Respiratory rate 20 /min Brady Marinelli [facility] 11-17-2021 17:30-0400 SaO2% (BldA) [Mass fraction] 95 % Brady Marinelli [facility] 11-17-2021 17:30-0400 Systolic blood pressure 144 mm[Hg] Brady Marinelli [facility] Encounters Encounter Date Encounter Type Care Provider Facility Start: 08-01-2023 ambulatory Marcelo C Link Facility:[facility] Start: 07-01-2023 End: 07-02-2023 ambulatory Marcelo C Link Facility:[facility] Start: 07-01-2023 End: 07-01-2023 Patient encounter procedure Marcelo C Link [facility] [place] Start: 07-01-2023 End: 07-01-2023 ambulatory JOAQUIM RICE Not Available Start: 05-20-2023 End: 05-20-2023 ambulatory JOAQUIM RICE Not Available Start: 05-20-2023 End: 05-24-2023 Pre-admission assessment Joaquim Rice [facility] Start: 05-12-2023 Telephone encounter Joaquim mcgarry DO Work Phone: [facility] Start: 05-09-2023 End: 05-21-2023 Pre-admission assessment Joaquim Rice [facility] Start: 04-11-2023 End: 04-11-2023 ambulatory Joaquim Rice Facility:[facility] Start: 03-12-2023 End: 03-27-2023 Pre-admission assessment Joaquim Rice [facility] Start: 03-03-2023 End: 03-03-2023 ambulatory Ashish Chester Other [email or web address] Other Start: 03-03-2023 Office outpatient vi sit 25 minutes Ashish Chester [facility] Start: 02-13-2023 End: 02-13-2023 ambulatory Joaquim Rice Facility:[facility] Start: 02-13-2023 End: 02-13-2023 Admission to same day surgery center Joaquim Rice [facility] Start: 02-03-2023 End: 02-03-2023 ambulatory Ashish Nemo Other [email or web address] Other Start: 02-03-2023 Office outpatient vi sit 25 minutes Ashish Chester [facility] Start: 01-13-2023 End: 01-13-2023 ambulatory Ashish Nemo Other [email or web address] Other Start: 01-13-2023 Telephone encounter Ashish Chester [facility] Start: 12-19-2022 End: 12-24-2022 Evaluation and management of inpatient Cordell Diallocker Facility:[facility] Start: 12-19-2022 End: 12-24-2022 Evaluation and management of inpatient Joaquim Rice [facility] Start: 12-08-2022 End: 12-09-2022 ambulatory DO Emely Mccall Facility:CD:[id number] Start: 12-08-2022 End: 12-08-2022 [facility]-Site [facility] Start: 12-05-2022 ambulatory Marcelo Call Facility:[facility] Start: 12-03-2022 End: 12-04-2022 ambulatory José MENEESS Facility:[id number] Start: 12-03-2022 End: 12-03-2022 Off-Site [facility] Start: 11-29-2022 End: 12-19-2022 ambulatory José MENESES Facility:[facility] Start: 11-24-2022 End: 11-29-2022 Evaluation and management of inpatient Soni PADGETT Facility:[facility] Start: 11-24-2022 End: 11-29-2022 Evaluation and management of inpatient Reymundo JORDAN [facility] Start: 10-02-2022 End: 10-02-2022 Emergency department patient visit Raul Arnold Facility:[facility] Start: 10-02-2022 End: 10-02-2022 Emergency department patient visit Raul Arnold [facility] Start: 09-04-2022 End: 09-04-2022 Emergency department patient visit Hari Martinez Facility:[facility] Start: 09-04-2022 End: 09-04-2022 Emergency department patient visit Hari Martinez [facility] Start: 09-04-2022 End: 09-04-2022 Emergency department patient visit Earnest Guevara Facility:[facility] Start: 09-04-2022 End: 09-04-2022 Emergency department patient visit Marcelo Call [facility] Start: 08-09-2022 End: 08-09-2022 Emergency department patient visit Raul Arnold Facility:[facility] Start: 08-09-2022 End: 08-09-2022 Emergency department patient visit Raul Arnold [facility] Start: 07-19-2022 End: 07-19-2022 Emergency department patient visit Ty Manrique Facility:[facility] Start: 07-18-2022 End: 07-18-2022 Emergency department patient visit Ty Manrique [facility] Start: 07-18-2022 End: 08-09-2022 ambulatory UNKNOWN PROVIDER Facility[facility] Start: 07-18-2022 End: 07-18-2022 ambulatory [facility] Triage, Treat and Transport Start: 07-18-2022 End: 07-18-2022 Emergency department patient visit [facility] Emergency Triage, Treat and Transport Comment on above: Arrived Start: 04-10-2022 End: 04-10-2022 Patient encounter procedure [place] DIAZ [facility] Start: 04-03-2022 End: 04-03-2022 Emergency department patient visit Raul Arnold [facility] Start: 04-02-2022 End: 04-02-2022 Emergency department patient visit Brady Marinelli [facility] Start: 03-13-2022 End: 03-13-2022 Emergency department patient visit Raul Arnold [facility] Start: 03-05-2022 End: 03-05-2022 Patient encounter procedure Marcelo Rivers Link [facility] Start: 02-13-2022 End: 02-13-2022 Patient encounter procedure Marcelo Rivers Link [facility] Start: 02-08-2022 End: 02-08-2022 Emergency department patient visit Ty Manrique [facility] Start: 02-03-2022 End: 02-03-2022 Emergency department patient visit Vadim Gusman [facility] Start: 01-31-2022 End: 02-02-2022 Observation Kilo HARRIS [facility] Start: 01-29-[address] Chuck [place] [facility] Facility: Start: 01-28-2022 End: 01-30-2022 Observation Nomi Hart [facility] Start: 01-28-2022 End: 01-28-2022 Patient encounter procedure Jean Claude Schaeffer [facility] Start: 01-27-2022 End: 01-27-2022 Emergency department patient visit Earnest Lakeshia Ismael [facility] Start: 11-17-2021 End: 11-17-2021 Emergency department patient visit Brady Marinelli [facility] Start: 11-09-2021 End: 11-09-2021 Patient encounter procedure Marcelo C Link [facility] Start: 11-08-2021 End: 11-14-2021 Pre-admission assessment Marcelo C Link [facility] Start: 10-15-2021 End: 10-15-2021 Patient encounter procedure Marcelo C Link [facility] Procedures Date Procedure Procedure Detail Performing Clinician Start: 04-11-2023 Aspiration of hip joint Joaquim Rice Start: 02-13-2023 Aspiration of hip joint Joaquim Rice Comment on above: d/t infection Start: 12-20-2022 Repair of fracture of hip by nailing using fluoroscopic guidance Joaquim Rice Start: 11-25-2022 History of hemiarthroplasty of right hip Reymundo JORDAN Start: 05-09-2022 Esophagogastroduodenoscopy Ty Duvallcarlinbyron jabier Start: 08-16-2020 Arthroscopy of shoulder Marcelo Call Start: 03-11-2019 Excision of mass of neck Marcelo Call Comment on above: REMOVAL OF LEFT NECK MASS Start: 12-22-2018 Mammography Joaquim Rice DO Work Phone: Start: 03-10-2018 Arthroplasty of finger Marcelo Call Comment on above: Right basilar thumb tendon interposition al arthroplasty with palmaris longus and 50% FCR graft, extensor tenodesis, splint application, mini-fluoroscopy Start: 10-31-2016 Rosemarie Joaquim Rice DO Work Phone: Start: 10-03-2014 percutaneous pinning left hip Marcelo Call Start: 12-07-2013 left total knee replacement with hardware removal Marcelo Call Start: 06-08-2013 right total knee arthroplasty Marcelo Call Start: 12-14-2012 Right knee surgery Marcelo Call BASILAR ARTHROPLASTY OF THUMB 3 Marcelo Call Comment on above: LEFT BASILAR ARTHROPLASTY OF THUMB 4 Joaquim Rice Comment on above: LEFT Cyst - diagnostic aspiration Marcelo Call Comment on above: Left shoulder blade Extracorporeal shock wave lithotripsy of calculus of kidney Marcelo Link gallbladder removed Marcelo palomares jaw surgery Marcelo Call left knee ORIF Marcelo Call Total abdominal hyst erectomy with bilateral salpingo-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 5, 6 Marcelo Link Comment on above: 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 6, 7 Joaquim Rice Comment on above: left benign Plan of Treatment Date Care Activity Detail Author Start: 10-31-2026 Screening for malign ant neoplasm of colon [facility] Start: 11-29-2022 Influenza vaccination Influenza Vacc ine (#1) [facility] Start: 12-23-2019 Screening for malign ant neoplasm of breast Mammogram [facility] Start: 10-10-2019 Pneumococcal vaccination Pneum ococcal Vaccine(s) (65+ yrs) (1 - PCV) [facility] Start: 10-10-2019 Pneumococcal Vaccine : 65+ Years (3 - PPSV23 or PCV20) Pneumococcal Vaccine: 65+ Years (3 - PPSV23 or PCV20) [facility] Start: 10-10-2019 Screening for osteoporosis Bone Dens [...] Screening for malign ant neoplasm of colon [facility] Immunizations Immunization Date Immunization Notes Care Provider Carley vincent 12-29-2022 influenza virus vaccine, unspecified formulation Marcelo Link [facility]emi Comment on above: Result Comment: nurs ing home 07-30-2020 SARS-CoV-2 (COVID-19 ) mRNA BNT-162b2 vax Jean Claude Akkina [facility] 07-10-2020 SARS-CoV-2 (COVID-19 ) mRNA BNT-162b2 vax Jean Claude Akkina [facility] 03-01-2020 influenza virus vaccine, unspecified formulation Jean Claude Akkina [facility] 03-31-2019 SARS-CoV-2 (COVID-19 ) mRNA BNT-162f4 vax Marcelo Link [facility] 12-30-2018 influenza virus vaccine, unspecified formulation Jean Claude Akkina [facility] 12-30-2017 influenza virus vaccine, unspecified formulation Jean Claude Akkina [facility] 06-10-2013 pneumococcal conjuga te vaccine, 13 valent Jean Claude Akkina [facility] 06-10-2013 influenza, seasonal, injectable Marcelo Link [facility] 06-10-2013 pneumococcal polysaccharide vaccine, 23 valent Marcelo Link [facility] 10-30-2010 tetanus toxoid, redu polina diphtheria toxoid, and acellular pertussis vaccine, adsorbed Marcelo Link [facility] Comment on above: Early/Late Reason: O THER: 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 reports that she had an Adacel injection less than 5 years ago. Payers Date Payer Category Payer Medicaid [id number] 2021 Medicaid MEDICAID [facility] [id number] 2021-Present [phone] [address] [place] [address] Medicaid [id number] 2021 Unknown [id number] 2012 Medicare MEDICARE MEDICAR E PART B [id number] 2012-Present [address] [address] [place] [address] Medicare [id number] 2012 Medicare [id number] 1954 Unknown [id number] 2.16.840.1.104078.3.579.2.356 1954 Unknown [id number] 2.16.840.1.231681.3.579.2.356 1954 Unknown [id number] 2.16.840.1.858056.3.579.2.732 1954 Unknown [id number] 2.16.840.1.188402.3.579.2.1259 1954 Unknown [id number] 2.16.840.1.402292.3.579.2.1259 1954 Unknown [id number] 2.16.840.1.003987.3.579.2.1259 1954 Unknown [id number] 2.16.840.1.354068.3.579.2.1259 1954 Unknown [id number] 2.16.840.1.622364.3.579.2.727 1954 Unknown [id number] 2.16.840.1.810587.3.579.2. 1954 Unknown [id number] 2.16.840.1.318174.3.579.2. 1954 Unknown [id number] 2.16.840.1.536987.3.579.2. 1954 Unknown [id number] 2.16.840.1.124025.3.579.2. 1954 Unknown [id number] 2.16.840.1.449897.3.579.2 1954 Unknown [id number] 2.16.840.1.511729.3.579.2. 1954 Unknown [id number] 2.16.840.1.053604.3.579.2 1954 Unknown [id number] 2.16.840.1.231405.3.579.2 1954 Unknown [id number] 2.16.840.1.187824.3.579.2. 1954 Unknown [id number] 2.16.840.1.493535.3.579.2. 1954 Unknown [id number] 2.16.840.1.302706.3.579.2 1954 Unknown [id number] 2.16.840.1.280557.3.579.2. 1954 Unknown [id number] 2.16.840.1.480752.3.579.2 1954 Unknown [id number] 2.16.840.1.154829.3.579.2. Social History Date Type Detail Facility Start: 01-19-2021 End: 07-01-2023 Tobacco smoking status Never smoked tobacco (finding) [facility] Comment on above: denies Tobacco smoking status Never [facility] Comment on above: denies Start: 02-06-2023 Sex Assigned At Female F [facility] Tobacco smoking status NHIS Tobacco smoking consumption unknown [facility] Start: 1955 Sex Assigned At Not on file [facility] Tobacco [facility] Comment on above: denies Tobacco smoking status No Smoking Status Entered [facility] Start: 12-19-2022 Tobacco use and exposure Smokeless tobacco non-user [facility] Start: 04-10-2023 Alcohol intake Lifetime non-d charlie (finding) [facility] Start: 02-06-2023 History of Social function [facility] Medical Equipment Procedure Code Equipment Code Equipment Origin al Text Equipment Identifier Dates HIP BIPOLAR ARTHROPLASTY Joaquim Rice DO A 11/25/22 Non Biological Hip R {[id number]{ [id number]{[id number] FDA Start: 11-25-2022 HIP TOTAL ARTHRO PLASTY REVISION Joaquim Rice DO A 12/20/22 Unknown Hip R FDA Start: 12-20-2022 HIP TOTAL ARTHRO PLASTY REVISION Joaquim Rice DO A 12/20/22 Unknown Hip R FDA Start: 12-20-2022 HIP TOTAL ARTHRO PLASTY REVISION Humble Rice DOson A 12/20/22 Unknown Hip R FDA Start: 12-20-2022 HIP TOTAL ARTHRO PLASTY REVISION Humble Rice DOson A 12/20/22 Unknown Hip R FDA Start: 12-20-2022 HIP TOTAL ARTHRO PLASTY REVISION Hasmukh DUVALL Joaquim A 12/20/22 Unknown Hip R FDA Start: 12-20-2022 HIP TOTAL ARTHRO PLASTY REVISION Hasmukh DUVALL Joaquim A 12/20/22 Unknown Hip R FDA Start: 12-20-2022 HIP TOTAL ARTHRO PLASTY REVISION Hasmukh DUVALL Joaquim A 12/20/22 Unknown Hip R FDA Start: 12-20-2022 HIP TOTAL ARTHRO PLASTY REVISION Hasmukh DUVALL Joaquim A 12/20/22 Unknown Hip R FDA Start: 12-20-2022 HIP TOTAL ARTHRO PLASTY REVISION Hasmukh Humble DUVALLson A 12/20/22 Unknown Hip R FDA Start: 12-20-2022 HIP TOTAL ARTHRO PLASTY REVISION Joaquim Rice DO 12/20/22 Unknown Hip R FDA Start: 12-20-2022 HIP TOTAL ARTHRO PLASTY REVISION Joaquim Rice DO A 12/20/22 Unknown Hip R FDA Start: 12-20-2022 HIP TOTAL ARTHRO PLASTY REVISION Joaquim Rice DO A 12/20/22 Unknown Hip R FDA Start: 12-20-2022 HIP TOTAL ARTHRO PLASTY REVISION Joaquim Rice DO A 12/20/22 Unknown Hip R FDA Start: 12-20-2022 HIP TOTAL ARTHRO PLASTY REVISION Joaquim Rice DO A 12/20/22 Unknown Hip R FDA Start: 12-20-2022 HIP TOTAL ARTHRO PLASTY REVISION Joaquim Rice DO A 12/20/22 Unknown Hip R FDA Start: 12-20-2022 HIP TOTAL ARTHRO PLASTY REVISION Joaquim Rice DO A 12/20/22 Unknown Hip R FDA Start: 12-20-2022 HIP TOTAL ARTHRO PLASTY REVISION Joaquim Rice DO A 12/20/22 Unknown Hip R FDA Start: 12-20-2022 HIP TOTAL ARTHRO PLASTY REVISION Joaquim Rice DO A 12/20/22 Unknown Hip R FDA Start: 12-20-2022 Functional Status Date Assessment Result Facility 07-01-2023 Functional Status N/A [facility] 02-12-2023 Functional Status No [facility] 12-19-2022 Functional Status N/A [facility] 11-24-2022 Functional Status No [facility] 11-24-2022 Functional Status [facility] 10-02-2022 Functional Status N/A [facility] 09-04-2022 Functional Status N/A [facility] 09-04-2022 Functional Status N/A [facility] 08-09-2022 Functional Status N/A [facility] 07-18-2022 Functional Status N/A [facility] 04-10-2022 Functional Status N/A [facility] 04-03-2022 Functional Status N/A [facility] 04-02-2022 Functional Status N/A [facility] 03-13-2022 Functional Status N/A [facility] 02-08-2022 Functional Status N/A [facility] 02-03-2022 Functional Status N/A [facility] 02-01-2022 Functional Status No [facility] 01-31-2022 Functional Status [facility] 01-28-2022 Functional Status N/A [facility] 01-28-2022 Functional Status [facility] 01-27-2022 Functional Status N/A [facility] 11-17-2021 Functional Status N/A [facility] Clinical Notes 11-17-2021 to 07-01-2023 Telephone Encounter - [facility] 05/12/2023 10:28 AM ESTTelephone Encounter - [facility] 05/12/2023 10:28 AM EST Note Date & Type Note Facility 07-01-2023 Hospital Discharg e instructions Patient Education 07/01/2023 13:40:35 Preventing Hypoglycemia Preventing Hypoglycemia Hypoglycemia occurs when the level of sugar (glucose) in the blood is too low. Hypoglycemia can happen in people who do or do not have diabetes (diabetes mellitus). It can develop quickly, and it can be a medical emergency. For most people with diabetes, a blood glucose level below 70 mg/dL (3.9 mmol/L) is considered hypoglycemia. Glucose is a type of sugar that provides the body's main source of energy. Certain hormones (insulin and glucagon) control the level of glucose in the blood. Insulin lowers blood glucose, and glucagon increases blood glucose. Hypoglycemia can result from having too much insulin in the bloodstream, or from not eating enough food that contains glucose. Your risk for hypoglycemia is higher: If you take insulin or diabetes medicines to help lower your blood glucose or to help your body make more insulin. If you skip or delay a meal or snack. If you are ill. During and after exercise. You can prevent hypoglycemia by working with your health care provider to adjust your meal plan as needed and by taking other precautions. How can hypoglycemia affect me? Mild symptoms Mild hypoglycemia may not cause any symptoms. If you do have symptoms, they may include: Hunger. Sweating and feeling clammy. Dizziness or feeling light-headed. Sleepiness or restless sleep. Nausea. Increased heart rate. Headache. Blurry vision. Mood changes, including irritability or anxiety. Tingling or numbness around the mouth, lips, or tongue. If mild hypoglycemia is not recognized and treated, it can quickly become moderate or severe hypoglycemia. Moderate symptoms Moderate hypoglycemia can cause: Confusion and poor judgment. Behavior changes. Weakness. Irregular heartbeat. A change in coordination. Severe symptoms Severe hypoglycemia is a medical emergency. It can cause: Fainting. Seizures. Loss of consciousness (coma). . What nutrition changes can be made? Work with your health care provider or dietitian to make a healthy meal plan that is right for you. Follow your meal plan carefully. Eat meals at regular times. If recommended by your health care provider, have snacks between meals. Donot skip or delay meals or snacks. You can be at risk for hypoglycemia if you are not getting enough carbohydrates. What lifestyle changes can be made? Work closely with your health care provider to manage your blood glucose. Make sure you know: ?Your goal blood glucose levels. ?How and when to check your blood glucose. ?The symptoms of hypoglycemia. It is important to treat hypoglycemia right away to keep it from becoming severe. Do not drink alcohol on an empty stomach. When you are ill, check your blood glucose more often than usual. Make a sick day plan in advance with your health care provider. Follow this plan whenever you cannot eat or drink normally. Always check your blood glucose before, during, and after exercise. How is this treated? This condition can often be treated by immediately eating or drinking something that contains sugar with 15 grams of fast-acting carbohydrate, such as: 4 oz (120 mL) of fruit juice. 4 oz (120 mL) of regular soda (not diet soda). Several pieces of hard candy. Check food labels to find out how many pieces to eat for 15 grams. 1 Tbsp (15 mL) of sugar or honey. 4 glucose tablets. 1 tube of glucose gel. Treating hypoglycemia if you have diabetes If you are alert and able to swallow safely, follow the 15:15 rule: Take 15 grams of a fast-acting carbohydrate. Talk with your health care provider about how much you should take. Fast-acting options include: ?Glucose tablets (take 4 tablets). ?Several pieces of hard candy. Check food labels to find out how many pieces to eat for 15 grams. ?4 oz (120 mL) of fruit juice. ?4 oz (120 mL) of regular soda (not diet soda). ?1 Tbsp (15 mL) of sugar or honey. ?1 tube of glucose gel. Check your blood glucose 15 minutes after you take the carbohydrate. If the repeat blood glucose level is still at or below 70 mg/dL (3.9 mmol/L), take 15 grams of a carbohydrate again. If your blood glucose level does not increase above 70 mg/dL (3.9 mmol/L) after 3 tries, seek emergency medical care. After your blood glucose level returns to normal, eat a meal or a snack within 1 hour. Treating severe hypoglycemia Severe hypoglycemia is when your blood glucose level is below 54 mg/dL (3 mmol/L). Severe hypoglycemia is a medical emergency. Get medical help right away. If you have severe hypoglycemia and you cannot eat or drink, you may need glucagon. A family member or close friend should learn how to check your blood glucose and how to give you glucagon. Ask your health care provider if you need to have an emergency glucagon kit available. Severe hypoglycemia may need to be treated in a hospital. The treatment may include getting glucose through an IV. You may also need treatment for the cause of your hypoglycemia. Where to find more information [place] [employer]: www.diabetes.org National [place] of Diabetes and Digestive and Kidney Diseases: www.niddk.nih.gov Association of Diabetes Care & Education Specialists: www.diabeteseducator.org Contact a health care provider if: You have problems keeping your blood glucose in your target range. You have frequent episodes of hypoglycemia. Get help right away if: You continue to have hypoglycemia symptoms after eating or drinking something containing glucose. Your blood glucose level is below 54 mg/dL (3 mmol/L). You faint. You have a seizure. These symptoms may represent a serious problem that is an emergency. Do not wait to see if the symptoms will go away. Get medical help right away. Call your local emergency services (911 in the [place] Do not drive yourself to the hospital. Summary Know the symptoms of hypoglycemia and when you are at risk for it, such as during exercise or when you are sick. Check your blood glucose often when you are at risk for hypoglycemia. Hypoglycemia can develop quickly, and it can be dangerous if it is not treated right away. If you have a history of severe hypoglycemia, make sure your family or a close friend knows how to use your glucagon kit. Make sure you know how to treat hypoglycemia. Keep a fast-acting carbohydrate option available when you may be at risk for hypoglycemia. This information is not intended to replace advice given to you by your health care provider. Make sure you discuss any questions you have with your health care provider. Document Revised: 02/15/2021 Document Reviewed: 02/15/2021 [employer] Patient Education 2022 [employer]eralynk. Follow Up Care 06/27/2023 11:25:55 With:Link Marcelo ISABELA Rivers Address: [address] [id number] When:4 weeks Comments:4 WEEKS FOLLOWUP [facility] [place] 05-12-2023 Telephone encount er Note Pts care home called to get a f/U appt scheduled from R Hip aspiration 04/11/23 @ [facility]. Does this patient need one? If so how when would you like me to schedule this appt? Yolie [phone] (adult specialist) [facility] 05-12-2023 Miscellaneous Notes Formattin g of this note might be different from the original. Pts care home called to get a f/U appt scheduled from R Hip aspiration 04/11/23 @ [facility]. Does this patient need one? If so how when would you like me to schedule this appt? Yolie [phone] (adult specialist) documented in this encounter [facility] 04-10-2023 Note [id number]#[id number] [facility] 03-20-2023 Note [id number]#[id number] [facility] 03-03-2023 Evaluation note Encounter Date Diagnosis Assessment [...] an order to correlate this with Dr. Rice's office. Feb, Receiving intravenous antibiotic treatment as outpatient (ICD-10 - Z79.2) Feb, Other specified bacterial agents as the cause of diseases classified elsewhere (ICD-10 - B96.89) [employer] Other 11-16-2023 Evaluation + Plan noteExtracted from: Title:LESLIE Post-operative Note - General Author: Can Kaplan Jr., DO Date:02/13/23 Plan Transfer/Discharge: Transfer/Discharge Discharge when meets criteria ( From PACU to Ambulatory Surgery Unit, and To home ). Extracted from: Title:LESLIE Pre-operative Note - Adult Author:Can Chapa Jr., DO Date:02/13/23 Plan [place] [employer] Anesthesiologists (ASA) physical status classification: Class III. Anesthetic Preoperative Plan: Anesthesia General. Future Scheduled Tests Radiology* NM Gastric Emptying Study 04/10/22 [facility]11-16-2023 Hospital Discharge instructions Patient Education 02/13/2023 08:20:41 Post Op Patient Instructions - FT (Custom) (CUSTOM) 02/13/2023 07:23:07 Henri Rice - Hip Injection with Anesthesia (Custom) [place], [place] [facility] HIP INJECTION WITH ANESTHESIA [...] at the operative site, persistent vomiting. Joaquim Rice, DO [facility] [address] [place] [address] Reviewed: [facility]11-06-2023 Evaluation note* Encounter Date Diagnosis Assessment [...] or not. She does not see Dr. Rice until September 13. I was hoping that [...] of diseases classified elsewhere (ICD-10 - B96.89) [employer] Other 10-31-2023 Note [id number]-27-[facility]23 NoteXavierer [facility] on above:Result Comment: printed and restickered and scanned to proper finElectronically Signed By: Joaquim Rice DO.deng\Date and Time Signed: 01/24/23 18:47 [id number] Note [id number] Hospital Discharge instructions Patient Education 12/24/2022 [...] Follow these instructions at home: Medicines Take [id number]-[id number] and prescription medicines only as told by [...] and water are not available, use hand music adapter. Keep all follow-up visits. This is important. [...] provider. Document Revised: 02/06/2022 Document Reviewed: 02/06/2022 [employer] Patient Education 2022 Teralynk. Follow Up Care 12/19/2022 11:45:54 With:Joaquim Rice Address: [address] [place] [place] [address]- Business (1) When: Unknown Comments:Call for followup appointment With:Ashish Chester Address: [address] [place] [address]- Business (1) When:2 weeks Comments:Call for followup appointment With:Marcelo Call Address: [address] [place] [address]- Business (1) When: Unknown [facility]09-26-2023 Evaluation + Plan noteExtracted from: Title:APSO Note Author:Soni PADGETT MD Date: 67-year-old female with history of diabetes mellitus, hypertension, neuropathy, hypothyroidism, recent right hip fracture status post replacement, recent acute blood loss anemia presented with right hip pain and discomfort and was admitted to Dr. Rice's service for right hip septic arthritis status [...] Started patient on MiraLAX for constipation. Ordered: [facility] Care/Day Moderate 35 Minutes 04348 2. Acute blood loss anemia (D62: Acute posthemorrhagic anemia) From recent admission. Hemoglobin stable. Continue on ferrous sulfate. Ordered: [facility] Care/Day Moderate 35 Minutes 48221 3. 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 Ordered: [facility] Care/Day Moderate 35 Minutes 63784 4. HTN (hypertension) (I10: Essential (primary) hypertension) Blood pressure controlled. Continue on Coreg and lisinopril. Ordered: [facility] Care/Day Moderate 35 Minutes 40039 5. Hypothyroidism (E03.9: Hypothyroidism, unspecified) Stable. On Synthroid. Disposition: To intermediate facility when arranged. I discussed the diagnosis and plan of care with the patient at the bedside. Moderate level of MDM based on addressing above issues. This documentation was transcribed using voice recognition software. Several attempts were made to ensure accuracy. However inadvertent computerized reheat furnace operator errors may be present. Soni Padgett. Hospitalist. Ordered: [facility] Care/Day Moderate 35 Minutes [id number] Orders: bisacodyl, 10 mg = 2 tab(s), Tab-EC, Oral, Once, Stop date 12/24/22 10:00:00 EDT, Routine, Start date 12/24/22 10:00:00 EDT, 12/24/22 9:10:00 EDT polyethylene glycol 3350, 17 gram = 1 EA, Powder-Recon, Oral, Daily, Routine, Start date 12/24/22 10:00:00 EDT, 12/24/22 10:00:00 EDT Referral to [facility] Addendum by Sarah PADGETT MD on December 24, 2022 15:28:26 EDT I [...] and discomfort and was admitted to Dr. Rice's service for right hip septic arthritis status [...] PICC line. Infectious disease consult pending. Ordered: [facility] Care/Day Moderate 35 Minutes [id number] 2. Acute blood loss anemia (D62: Acute posthemorrhagic anemia) From recent admission. Hemoglobin above 7.0. No need for blood transfusion. Continue on ferrous sulfate. Ordered: [facility] Care/Day Moderate 35 Minutes 57054 3. 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 Ordered: [facility] Care/Day Moderate 35 Minutes 38460 4. HTN (hypertension) (I10: Essential (primary) hypertension) Blood pressure fairly controlled. Continue on Coreg, lisinopril. Ordered: [facility] Care/Day Moderate 35 Minutes 64122 5. Hypothyroidism (E03.9: Hypothyroidism, unspecified) Continue Synthroid. Disposition: Pending final wound culture results and final infectious disease recommendations. I discussed the diagnosis and plan of care with the patient at the bedside. Moderate level of MDM based on addressing above issues. This documentation was transcribed using voice recognition software. Several attempts were made to ensure accuracy. However inadvertent computerized reheat furnace operator errors may be present. Soni Padgett. Hospitalist. Ordered: [facility] Care/Day Moderate 35 Minutes [id number] Extracted from: Title:Progress/SOAP Note Author:Rosalia Grossman DO [...] Ordered: [facility] Hospital Care/Day Moderate 55 Minutes 76178 2. Diabetes mellitus with polyneuropathy (E11.42: Type 2 diabetes mellitus with diabetic polyneuropathy) Sliding scale insulin for diabetes plus that she takes from home Ordered: [facility] Hospital Care/Day Moderate 55 Minutes 84528 3. HTN (hypertension) (I10: Essential (primary) hypertension) On lisinopril and carvedilol from home; we also resumed her atorvastatin Ordered: [facility] Hospital Care/Day Moderate 55 Minutes 50250 PLAN: 1. Patient is on daptomycin 2. [...] Author:Cruzito em MD, Ahmad F Date:12/20/22 Plan [place] [employer]esthesiologists (ASA) physical status classification: [...] Tests Radiology* NM Gastric Emptying Study 04/10/22 [facility]09-10-2023 Hospital Discharge instructions Follow Up Care 12/08/2022 11:51:54 With:Emely Mccall DO, ISABELA Address: When:Within 1 Month(s) [facility] 09-01-2023 Evaluation + Plan noteExtracted from: Title:Discharge Note Author:FALLON BANKS, Soni Almaguer ate:11/29/22 Stable. Discharge To, Anticipated II - Penitentiary Unit Discharged to - Home independently Discharge [...] Marcelo Link Only if needed [address] [place] [address]- Business (1) Additional Instructions: Joaquim Rice Within 2 to 4 weeks [address] [place] [address]- Business (1) Additional Instructions: Call for followup appointment Hip Fracture Extracted from: Title:APSO Note Author:FALLON BANKS, Sarahfo [...] replacement surgery on 11/25/[address] Joaquim Rice. Continue with physical therapy pending precertification to SNF. Ordered: [facility] Care/Day Moderate 35 Minutes 45572 2. Fall (W19.XXXA: Unspecified fall, initial encounter) Mechanical fall. Stable. Ordered: [facility] Care/Day Moderate 35 Minutes 81496 3. Acute blood loss anemia (D62: Acute posthemorrhagic anemia) Acute blood loss anemia in the perioperative period. Patient received 1 unit of packed red blood cell transfusion and hemoglobin is stable at around 8.6. She also received IV iron infusions. Continue on oral iron. Ordered: [facility] Care/Day Moderate 35 Minutes 12543 4. Hypertension (I10: Essential (primary) hypertension) Blood pressure fairly controlled. Continue on Coreg and lisinopril. Ordered: [facility] Care/Day Moderate 35 Minutes 06780 5. Hyperlipidemia (E78.5: Hyperlipidemia, unspecified) Stable. On Lipitor. Ordered: [facility] Care/Day Moderate 35 Minutes 35545 6. Diabetes (E11.9: Type 2 diabetes mellitus [...] made to ensure accuracy. However inadvertent computerized reheat furnace operator errors may be present. Soni Padgett. Hospitalist. Orders: aspirin, 162 mg = 2 tab(s), Oral, Daily, X 30 day(s), # 60 tab(s), Refills(s) 0 Extracted from: Title:APSO Note Author:FALLON BANKS, Soni Date: 67-year-old female with history of hypertension, [...] replacement surgery on 11/25/[address] Joaquim Rice. Continue with physical therapy pending precertification to SNF. Ordered: [facility] Care/Day Moderate 35 Minutes 10021 2. Fall (W19.XXXA: Unspecified fall, initial encounter) Mechanical fall. Supportive care. Ordered: [facility] Care/Day Moderate 35 Minutes 80238 3. Acute blood loss anemia (D62: Acute posthemorrhagic anemia) Acute blood loss anemia in the perioperative period Status post 1 unit of packed red blood cell transfusion. Hemoglobin stable at 8.6. Patient received IV iron infusions. Continue on oral iron. Ordered: [facility] Care/Day Moderate 35 Minutes 46407 4. Hypertension (I10: Essential (primary) hypertension) Blood pressure fairly controlled. Continue on Coreg. We will resume lisinopril at discharge with hold parameters. Ordered: [facility] Care/Day Moderate 35 Minutes 81518 5. Hyperlipidemia (E78.5: Hyperlipidemia, unspecified) Stable. On [...] made to ensure accuracy. However inadvertent computerized reheat furnace operator errors may be present. Soni Padgett. Hospitalist. [...] 120, # 90 tab(s), Refills(s) 0, Pharmacy: [facility], 162, cm, 01/31/22 21:16:00 EDT, Height/Length Dosing, 70.4, kg, 01/31/22 21:16:00 EDT, Weight Dosing UA With Cult Reflex Extracted from: Title:APSO Note Author:Soni PADGETT MD Date: Called [id number] Cauc[place] pa[place] female with history of hypertension, [...] replacement surgery on 11/25/[address] Joaquim Rice. Continue with physical therapy pending precertification to SNF. Ordered: [facility] Care/Day Moderate 35 Minutes 68115 2. Fall (W19.XXXA: Unspecified fall, initial encounter) Mechanical fall. Supportive care. Ordered: [facility] Care/Day Moderate 35 Minutes 31593 3. Acute blood loss anemia (D62: Acute posthemorrhagic anemia) Acute blood loss anemia in the perioperative period Status post 1 unit of packed red blood cell transfusion. Patient received IV iron infusions. Continue on oral iron. Ordered: [facility] Care/Day Moderate 35 Minutes 56646 4. Hypertension (I10: Essential (primary) hypertension) Blood pressure fairly controlled. Continue on Coreg. Lisinopril on hold. Ordered: [facility] Care/Day Moderate 35 Minutes 96357 5. Hyperlipidemia (E78.5: Hyperlipidemia, unspecified) Stable. On Lipitor. Ordered: [facility] Care/Day Moderate 35 Minutes 60305 6. Diabetes (E11.9: Type 2 diabetes mellitus [...] made to ensure accuracy. However inadvertent computerized reheat furnace operator errors may be present. Soni Padgett. Hospitalist. Extracted from: Title:APSO Note Author:DANISH HANSENTERESOJanny Date:11/26/22 PLAN: 1. Closed hip fracture (S72.009A: [...] To home ). Extracted from: Title:APSO Note Author:DANISH JOSE AJanny Date:11/25/22 PLAN: 1. Closed hip fracture (S72.009A: Fracture of unspecified part of neck of unspecified femur, initial encounter for closed fracture) subcapital femoral neck fracture, right hip status post mechanical fall from standing height. Pathologic fracture secondary to osteoporosis. CT of pelvis shows acute right subcapital femoral neck fracture consult Dr. Rice --patient pending right hip bipolar hemiarthroplasty today [...] Author:Cruzito em MD, Ahmad F Date:11/25/22 Plan [place] [employer] Anesthesiologists (ASA) physical status classification: Class III. Anesthetic Preoperative Plan Anesthesia: General. . Anesthetic plan, risks, benefits, and alternatives discussed with the patient and/or family. Risks discussed: nausea, vomiting, headache, sore throat, dental injury, serious complications. Patient verbalized understanding. Communication: face to face with patient 5 minutes. Extracted from: Title:ORTHO Consult Author:Joaquim Rice DO e:11/24/22 Impression and Plan 67-year-old female with [...] right subcapital femoral neck fracture consult Dr. Rice notified by ED-official consult pending Dilaudid for [...] Emergency department doctor discussed case with Dr. Rice who is aware and agrees to be on consult. Patient denies any prior history with anesthesia on prior surgeries, despite her thrombocytopenia she denies any history of excessive bleeding and therefore unlikely to have qualitative platelet defects the quantitative deficit is adequate for surgical procedure if recommended by Dr. Rice. Patient denies any history to suggest cardial [...] Scheduled Provider:José MENESES MD Location:Extended Care Appointment Type:[facility] Future Scheduled Tests Radiology* PA Gastric Emptying Study 04/10/22 [facility]09[facility]01[facility]Sum[facility] CampusComment on above:Result Comment: Electronically Signed By: FALLON BANKS, Soni\.br\Date and Time Signed: 11/29/22 11:02 [id number] Hospital Discharge instructions Patient Education 11/28/2022 13:25:57 [...] your health care provider. General instructions Take kcpk-vfv-egmkqwr and prescription medicines only as told by [...] provider. Document Revised: 11/17/2020 Document Reviewed: 11/17/2020 [employer] Patient Education 2021 [employer]. Follow Up Care 11/24/2022 00:36:57 With:Marcelo Call Address: [address] [place] [address]- Business (1) When: only if needed With:Joaquim Rice Address: [address] [place] [address]- Business (1) When:2 to 4 weeks Comments:Call for followup appointment [facility]08-27-2023 NoteFisher Kennedy Krieger InstituteComment on above:Result Comment: Electronically Signed By: Reymundo JORDAN DO\.br\Date and Time Signed: 11/24/22 05:35 [id number] Evaluation + Plan note Extracted from: Title:ED [...] Tests Radiology* NM Gastric Emptying Study 04/10/22 [facility]06-07-2023 Hospital Discharge instructions Patient Education 09/04/2022 [...] Follow these instructions at home: Medicines Take kqsg-vsz-mpwjvwm and prescription medicines only as told by your health care provider. Ask your health care provider if the medicine prescribed to you: ?Requires you to avoid driving or using heavy machinery. ?Can cause constipation. You may need to take these actions to prevent or treat constipation: ?Drink enough fluid to keep your urine pale yellow. ?Take qxmu-gbe-vblunig or prescription medicines. ?Eat foods that are [...] provider. Document Revised: 11/24/2019 Document Reviewed: 11/24/2019 [employer] Patient Education 2022 [employer]. 09/04/2022 21:51:36 Head Injury, Adult Head Injury, [...] Ask your health care provider for a tksz-yl-jxcu plan for gradually returning to activities. Ask [...] your friends, family, a trusted colleague, and addiction social worker about your injury, symptoms, and restrictions. Have them watch for any new or worsening problems. General instructions Take yinv-ick-nwibjia and prescription medicines only as told by [...] provider. Document Revised: 01/28/2020 Document Reviewed: 01/28/2020 [employer] Patient Education 2022 [employer]. Follow Up Care 09/04/2022 20:22:40 With:Marcelo Link Address: [address] [facility] [place] [address]- Business (1) When:Within 3 Day(s) [facility]06-07-2023 Hospital Discharge instructions Patient Education 09/04/2022 19:32:42 RICE Therapy for Routine Care of Injuries, Wfwv-em-Tajr RICE Therapy for Routine Care of Injuries [...] provider. Document Revised: 01/04/2021 Document Reviewed: 01/04/2021 [employer] Patient Education 2022 [employer]. 09/04/2022 19:32:42 Contusion, Yguk-ni-Chuj Contusion A contusion is a deep bruise. [...] sitting or lying down. General instructions Take ysqi-uvl-uupiiyb and prescription medicines only as told by [...] is also called RICE. Youmay be given dooh-ufi-wnglppp medicines for pain. Contact a doctor if [...] provider. Document Revised: 01/10/2022 Document Reviewed: 01/10/2022 [employer] Patient Education 2022 [employer]. Follow Up Care 09/04/2022 15:05:18 With:Marcelo Link Address: [address] [place] [address]- Business (1) When:09/07/2022 18:53:36 Comments:Follow-up with your primary care provider in 3 to 5 days. If symptoms worsen, do not improve, or new symptoms arise please report back to emergency department for further evaluation. [facility]06-07-2023 Evaluation + Plan noteExtracted from: Title:ED Note Author:Hari Martinez DO Date :09/04/22 Closed head injury Cervical strain Future Scheduled Tests Radiology* NM Gastric Emptying Study 04/10/22 [facility]05-12-2023 Hospital Discharge instructions Patient Education 08/09/2022 [...] Ask your health care provider for a kacs-ff-twzt plan for gradually returning to activities. Ask [...] your friends, family, a trusted colleague, and addiction social worker about your injury, symptoms, and restrictions. Have them watch for any new or worsening problems. General instructions Take gpzw-gmi-kpztomc and prescription medicines only as told by [...] provider. Document Revised: 01/28/2020 Document Reviewed: 01/28/2020 [employer] Patient Education 2022 [employer]. 08/09/2022 14:12:59 Fall Prevention in Hospitals, Adult [...] balance. Talk with a physical therapist or corporate sales trainer if recommended by your health care [...] provider. Document Revised: 10/18/2020 Document Reviewed: 10/18/2020 [employer] Patient Education 2022 [employer]. Follow Up Care 08/09/2022 12:15:41 With:Marcelo Link Address: [address] [place] [address]- Business (1) When:08/12/2022 14:11:58 Comments:Call the office [...] sleep, or any new or worsening symptoms. [facility]05-12-2023 Evaluation + Plan noteExtracted from: Title:ED [...] Tests Radiology* NM Gastric Emptying Study 04/10/22 [facility]04-21-2023 Hospital Discharge instructions Patient Education 07/18/2022 [...] to strengthen the arm. General instructions Take kirz-zxq-hfbnbse and prescription medicines only as told by [...] provider. Document Revised: 11/30/2021 Document Reviewed: 11/30/2021 [employer] Patient Education 2022 [employer]ynk. 07/18/2022 23:33:46 Hip Pain Hip Pain The [...] activities that cause pain. General instructions Take hgrp-hya-wpkbblx and prescription medicines only as told by [...] provider. Document Revised: 08/02/2019 Document Reviewed: 08/02/2019 [employer] Patient Education 2022 [employer]eralynk. 07/18/2022 23:33:46 Fall Prevention in the Home, Adult, Dvys-vn-Uwnk Fall Prevention in the Home, Adult Falls [...] Keep items that you use often in iqsi-lt-ryllm places. Lower the shelves around your home [...] of the way. Do not use floor greek or wax that makes floors slippery. What [...] information Centers for Disease Control and Prevention, STEADI: www.cdc.gov National [place] on Aging: www.britany.nih.gov Contact a doctor if: [...] provider. Document Revised: 12/17/2021 Document Reviewed: 10/18/2020 [employer] Patient Education 2022 [employer]eralynk. Follow Up Care 07/18/2022 22:27:53 With:Marcelo Link Address: [address] [place] [address] Business (1) When:07/21/2022 Comments:Contact ibuprofen, Tylenol at home as needed for pain every 6 hours. Please follow-up with your primary care doctor in the next 2 to 3 days. Please return to the ED for any new or worsening symptoms or [facility]04-20-[facility]23 History of Present illness Narrative* Naseem Hardy MD - 07/18/2022 4:32 PM EDT Images from the original note were not included. EMERGENCY TRIAGE, TREAT AND TRANSPORT (ET3) DOCUMENTATION OF TELEHEALTH VISIT Date / Time: 07/18/2022 / 1615 Name: Fartun Myers NOTE: CORRECT SPELLING MAY BE ZACH : 1955 SSN: (Not on file) EMS Agency: [facility] [x] Verbal consent obtained [] Implied [...] by: Naseem Hardy MD documented in this [id number] Evaluation + Plan note Extracted from: Title:ED [...] Tests Radiology* NM Gastric Emptying Study 04/10/22 [facility]01-11-2023 Evaluation + Plan note Future Scheduled Tests Radiology* PA Gastric Emptying Study 04/10/22 [facility]01-04-2023 Hospital Discharge instructions Patient Education 04/03/2022 [...] sitting or lying down. General instructions Take juzw-tra-qeldkxx and prescription medicines only as told by [...] compression, and elevation. You may be given gskh-rhf-bslkbky medicines for pain. Contact a health care [...] 12/25/2005 Document Revised: 11/05/2018 Document Reviewed: 11/05/2018 [employer] Patient Education 2020 Elsevier Inc. Follow Up Care 04/03/2022 16:34:06 With:Marcelo Link Address: [address] [place] [address]- Business (1) When:04/06/2022 18:32:44 Comments:Call the office [...] you develop any new or worsening symptoms. [facility]01-04-2023 Evaluation + Plan noteExtracted from: Title:ED [...] Date:04/10/2022 10:15:00 AM Scheduled Provider:London DIAZ MD Location:[facility] Digestive Health Appointment Type:[facility] Follow Up [facility]01-03-2023 Evaluation + Plan noteExtracted from: Title:ED Note Author:Brady Marinelli DO Date:04/02 Contusion of hip (S70.00XA: Contusion of unspecified hip, initial encounter) Elbow contusion (S50.00XA: Contusion of unspecified elbow, initial encounter) Orders: XR Elbow 3+ Views Left XR Hip 2-3 Views Left + Pelvis Future Appointments Appointment Date:04/10/2022 10:15:00 AM Scheduled Provider:London DIAZ MD Location:[facility] Digestive Health Appointment Type:[facility] Follow Up [facility]01-03-2023 Hospital Discharge instructions Patient Education 04/02/2022 [...] your health care provider. General instructions Take jali-kgy-fvdwslz and prescription medicines only as told by your health care provider. Ask your health care provider if the medicine prescribed to you: ?Requires you to avoid driving or using heavy machinery. ?Can cause constipation. You may need to take actions to prevent or treat constipation, such as: ?Drink enough fluid to keep your urine pale yellow. ?Take fmyk-uhm-xezdqph or prescription medicines. ?Eat foods that are [...] 11/05/2018 Document Revised: 07/08/2019 Document Reviewed: 11/05/2018 [employer] Patient Education 2020 Teralynk. 04/02/2022 11:03:46 Elbow Contusion Elbow Contusion An [...] sling or splint to support your injury. Ydtu-gem-sdhycbl anti-inflammatory medicines, such as ibuprofen, for pain control. Xekaq-xk-uawlhz exercises. Follow these instructions at home: RICE [...] bath or a shower. General instructions Take rbnm-pxk-uqmdmsp and prescription medicines only as told by your health care provider. Return to your normal activities as told by your health care provider. Ask your health care provider what activities are safe for you. Do xfkzv-rf-ywlnsa exercises only as told by your health [...] 02/23/2007 Document Revised: 09/17/2018 Document Reviewed: 09/17/2018 [employer] Patient Education 2020 [employer] Follow Up Care 04/02/2022 09:43:43 With:Marcelo Link Address: [address] [place] [address]- Business (1) When:Within 3 Day(s) [facility]12-14-2022 Hospital Discharge instructions Patient Education 03/13/2022 [...] home: Managing pain, stiffness, and swelling Take invb-ncb-vqisvrp and prescription medicines only as told by [...] as fried and sweet foods. ?Take an odqu-dib-sdkkllr or prescription medicine for constipation. Contact a [...] 12/10/2001 Document Revised: 05/13/2019 Document Reviewed: 04/06/2018 [employer] Patient Education 2020 [employer]. 03/13/2022 19:21:56 Abdominal Pain, Adult, Lzfh-iv-Cqmx Abdominal Pain, Adult Many things can cause belly (abdominal) pain. Most times, belly pain is not dangerous. Many cases of belly pain can be watched and treated at home. Sometimes, though, belly pain is serious. Your doctor will try to find the cause of your belly pain. Follow these instructions at home: Medicines Take pfmi-oyq-oicrtyv and prescription medicines only as told by [...] your belly pain for any changes. Take ukjj-rsm-csociga and prescription medicines only as told by [...] 09/02/2008 Document Revised: 07/26/2019 Document Reviewed: 07/26/2019 [employer] Patient Education 2019 Teralynk. Follow Up Care 03/13/2022 16:37:17 With:Marcelo Link Address: [address] [place] [address]- Business (1) When:03/16/2022 19:05:35 Comments:Follow-up with your primary care provider in 3 to 5 days. If symptoms worsen, do not improve, or new symptoms arise please report back to emergency department for further evaluation. [facility]11-12-2022 Hospital Discharge instructions Patient Education 02/08/2022 [...] Follow these instructions at home: Medicines Take cwpq-jyz-yrcwpxj and prescription medicines only as told by [...] Watch your condition for any changes. Take lymi-qxg-gztwict and prescription medicines only as told by [...] 12/25/2005 Document Revised: 07/26/2019 Document Reviewed: 07/26/2019 [employer] Patient Education 2020 [employer] Follow Up Care 02/08/2022 20:29:45 With:Marcelo Call Address: [address] [facility] [place] [address] Business (1) When:02/11/2022 Comments:Attend scheduled follow-up with Dr. Call next week to discuss management of ongoing chronic pain and other symptoms [facility]11-11-2022 Evaluation + Plan noteExtracted from: Title:ED Note Author:Natalie RUBIO, Delbert Rivers Micheal e:02/08/22 Abdominal pain (R10.9: Unspe cified abdominal pain) Nausea (R11.0: Nausea) Orders: Automated Diff Basic Metabolic Panel Beta-hydroxybutyrate CBC w/ Auto Diff eGFR Hepatic Function Panel UA With Cult Reflex XR Abdomen 1 View Future Appointments Appointment Date:04/10/2022 10:15:00 AM Scheduled Provider:London DIAZ MD Location:[facility] Digestive Health Appointment Type:[facility] Follow Up [facility]11-06-2022 Evaluation + Plan noteExtracted from: Title:ED Note Author:Vadim Gusman MD Date: 1. Medication side effect (T 88.7XXA: Unspecified adverse effect of drug or medicament, initial encounter) Orders: Automated Diff Basic Metabolic Panel CBC w/ Auto Diff eGFR Extra Blue Tube UA With Cult Reflex Future Appointments Appointment Date:04/10/2022 10:15:00 AM Scheduled Provider:London DIAZ MD Location:[facility] Digestive Health Appointment Type:BAD Follow Up [facility]11-06-2022 Hospital Discharge instructions Patient Education 02/03/2022 05:00:01 Accidental Drug Poisoning, Adult Accidental Drug Poisoning, Adult Accidental drug poisoning happens when a person accidentally takes too much of a substance, such asa prescription medicine, an krco-her-lhuqeoi medicine, a vitamin, a supplement, or an [...] medicines. Cocaine. Heroin. Multivitamins that contain iron. Chfn-vyj-uljwahv cold and cough medicines. What increases the [...] Follow these instructions at home: Medicines Take ddhn-kjj-zizppdw and prescription medicines only as told by your health care provider. Before taking a new medicine, ask your health care provider whether the medicine: ?May cause side effects. ?Might react with other medicines. Keep a list of all the medicines that you take, including ikdh-hym-grfprqf medicines, vitamins, supplements, and herbs. Bring this [...] your cell phone. The hotline of the [place] [employer] of Poison Control Centers is . [...] a substance, such asa prescription medicine, an ubdp-sxo-pcytoqy medicine, a vitamin, a supplement, or an [...] 05/31/2005 Document Revised: 02/27/2018 Document Reviewed: 02/16/2018 [employer] Patient Education 2020 [employer]k. Follow Up Care 02/03/2022 01:08:11 With:Marcelo Link Address: [address], [address] [place] [address]- Business (1) When:02/06/2022 only if needed [facility]11-05-2022 Evaluation + Plan noteExtracted from: Title:Discharge Note Author:DERREK BANKS, Denzel Burton e:02/02/22 Good Discharge To, Anticipated II - Home with home health Discharged to - Other: states she has a nurse who will be coming in to help with medications and another person to help with compensation director Home Discharge Diet(s): Calorie Controlled- 1800 Calorie [...] Tab, 112 mcg= 1 tab(s), Oral, Daily Charleston 325 mg-5 mg oral tablet, 1 tab(s), [...] Marcelo Link 02/08/2022 10:15 AM EST [address] [place] [address]- Business (1) Additional Instructions: Acute Kidney Injury, [...] made to ensure accuracy, however, inadvertently computerized reheat furnace operator mistakes may be present. Dr. Kilo Harris Hospitalist at [facility] Extracted from: Title:ED Note Author:Ty Manrique [...] Date:04/10/2022 10:15:00 AM Scheduled Provider:London DIAZ MD Location:[facility] Digestive Health Appointment Type:[facility] Follow Up Diagnostic Tests Pending * Blood Gas Randall 01/31/22 [facility]11-05-2022 Hospital Discharge instructions Patient Education 02/02/2022 [...] Follow these instructions at home: Medicines Take injp-mzi-ysggazs and prescription medicines only as told by [...] is important. Where to find more information [place] [employer] Kidney Patients: www.aakp.org National Kidney Foundation: www.kidney.org [place] [employer]: www.akfinc.org [facility]: [...] 09/30/2011 Document Revised: 02/27/2018 Document Reviewed: 03/07/2017 [employer] Patient Education 2020 [employer]. 02/02/2022 11:03:37 Acute Kidney Injury, Adult Acute [...] Follow these instructions at home: Medicines Take kusy-izz-xqovumf and prescription medicines only as told by [...] is important. Where to find more information [place] [employer] Kidney Patients: www.aakp.org National Kidney Foundation: www.kidney.org [place] [employer]: www.akfinc.org [facility]: [...] 09/30/2011 Document Revised: 02/27/2018 Document Reviewed: 03/07/2017 [employer] Patient Education 2020 [employer]. Follow Up Care 01/31/2022 21:09:18 With:Marcelo Link Address: [address] [place] [address]- Business (1) When:02/08/2022 10:15:00 [facility]11-02-2022 Evaluation + Plan noteExtracted from: Title:Discharge Note Author:DERREK BANKS, Alaa Micheal e:01/30/22 good Discharge To, Anticipated II - [...] Tab, 40 mg= 1 tab(s), Oral, Daily [place] 325 mg-5 mg oral tablet, 1 tab(s), Oral, BID, PRN Paxil 10 mg Tab, 10 mg= 1 tab(s), Oral, As Directed rosuvastatin 20 mg Tab, 20 mg= 1 tab(s), Oral, Daily traZODONE 100 mg Tab, 200 mg= 2 tab(s), Oral, Once a day (at bedtime) Trulicity Pen 4.5 mg/0.5 mL subcutaneous solution, 4.5 mg, SubCutaneous, qWeek With When Contact Information NOMI WETZEL [address] [place] [address]- Business (1) Additional Instructions: Marcelo Link In 0 days [address] [place] [address]- Business (1) Additional Instructions: Form - Daily [...] Encounter for prophylactic measures, unspecified) Lovenox daily [facility]11-02-2022 Hospital Discharge instructions Patient Education 01/30/2022 [...] 02/18/2005 Document Revised: 12/29/2018 Document Reviewed: 12/13/2016 [employer] Patient Education 2020 [employer] 01/30/2022 09:29:23 Diabetic Ketoacidosis Diabetic Ketoacidosis Diabetic [...] sugar-free liquids, such as water. Medicines Take nvfv-hlb-qmetivd and prescription medicines only as told by [...] 03/14/2001 Document Revised: 05/02/2017 Document Reviewed: 04/21/2017 [employer] Patient Education 2020 [employer]ynk. 01/30/2022 09:29:22 Diabetes Mellitus and Sick Day [...] lot of sugar. Take medicines as directed Mfja-ucgh-awp-counter and prescription medicines only as told by [...] 03/19/2004 Document Revised: 12/13/2016 Document Reviewed: 12/13/2016 [employer] Patient Education 2020 [employer]. 01/30/2022 09:29:20 Diabetes Mellitus and Nutrition, Adult [...] that you work with a diet and dairy nutritionist (dietitian) tomake a meal plan that is [...] care provider. Work with a counselor or hospital educator to identify strategies to manage stress and any emotional and social challenges. Questions to ask a health care provider Do I need to meet with a hospital educator? Do I need to meet with a dietitian? What number can I call if I have questions? When are the best times to check my blood glucose? Where to find more information: [place] [employer]: diabetes.org Academy of Nutrition and Dietetics: www.eatright.org National [place] of Diabetes and Digestive and Kidney Diseases (NIH): www.niddk.nih.gov Summary A healthy meal plan will help you control your blood glucose and maintain a healthy lifestyle. Working with a diet and dairy nutritionist (dietitian) can help you make a meal [...] 12/12/2005 Document Revised: 02/27/2018 Document Reviewed: 04/21/2017 [employer] Patient Education 2020 [employer]. 01/30/2022 09:29:19 Diabetes Mellitus and Foot Care Diabetes Mellitus and Foot Care Foot care is an important part of your health, especially when you have diabetes. Diabetes may cause you to have problems because of poor blood flow (circulation) to your feet and legs, which can cause your skin to: Become thinner and sulfate drier machine operator. Break more easily. Heal more slowly. [...] 03/14/2001 Document Revised: 04/29/2018 Document Reviewed: 04/18/2017 [employer] Patient Education 2020 [employer]. 01/30/2022 09:29:18 Diabetes Mellitus and Exercise Diabetes [...] plan? Your health care provider or certified residential medication aide can help you make a plan for [...] stress. Your health care provider or certified residential medication aide can help you make a plan for [...] 06/06/2004 Document Revised: 2017 Document Reviewed: 08/26/2016 [employer] Patient Education 2020 [employer]. Follow Up Care 01/28/2022 11:57:18 With:NOMI WETZEL Address: [address] [place] [address]- Business (1) When:02/05/2022 09:40:00 Comments:For DKA & Renal Failure With:Marcelo Call Address: [address] [facility] [place] [address]- Business (1) When:02/08/2022 10:15:00 [facility]10-30-2022 Hospital Discharge instructions Patient Education 01/27/2022 [...] oral rehydration solution (ORS). This is an vpyk-hol-pnjnzwe medicine that helps return your body to [...] drinks, sports drinks, and soda. Eat bland, tyjz-ns-jejcmu foods in small amounts as you are able. These foods include bananas, applesauce, rice, lean meats, toast, and crackers. Avoid alcohol. Avoid spicy or fatty foods. Medicines Take yqte-jbd-bzmzqiv and prescription medicines only as told by your health care provider. If you were prescribed an antibiotic medicine, take it as told by your health care provider. Do notstop using the antibiotic even if you start to feel better. General instructions Wash your hands often using soap and water. If soap and water are not available, use a hand music adapter. Others in the household should wash their [...] soap and water are not available, usehand music adapter. Contact a health care provider if your diarrhea gets worse or you have new symptoms. Get help right away if you have signs of dehydration. This information is not intended to replace advice given to you by your health care provider. Make sure you discuss any questions you have with your health care provider. Document Released: 03/07/2003 Document Revised: 08/03/2019 Document Reviewed: 08/21/2018 [employer] Patient Education 2020 [employer]. 01/27/2022 18:13:28 Nausea and Vomiting, Adult Nausea [...] water added (diluted fruit juice). Eat bland, wdho-iq-npfhto foods in small amounts as you are able. These foods include bananas, applesauce, rice, lean meats, toast, and crackers. Avoid fluids that contain a lot of sugar or caffeine, such as energy drinks, sports drinks, and soda. Avoid alcohol. Avoid spicy or fatty foods. General instructions Take jixa-zzd-qzjncmz and prescription medicines only as told by your health care provider. Drink enough fluid to keep your urine pale yellow. Wash your hands often using soap and water. If soap and water are not available, use hand music adapter. Make sure that all people in your [...] eating and drinking to prevent dehydration. Take jntn-bhm-erclkcy and prescription medicines only as told by [...] 03/17/2006 Document Revised: 07/09/2019 Document Reviewed: 08/25/2018 [employer] Patient Education 2019 [employer]. 01/27/2022 18:13:28 Abdominal Pain, Adult Abdominal Pain, [...] Follow these instructions at home: Medicines Take jebc-wqi-ncfkcjv and prescription medicines only as told by [...] Watch your condition for any changes. Take llxm-aem-lzngwhr and prescription medicines only as told by [...] 12/25/2005 Document Revised: 07/26/2019 Document Reviewed: 07/26/2019 [employer] Patient Education 2020 [employer]. Follow Up Care 01/27/2022 14:43:33 With:London DIAZ Address: [address] [place] [address] Business (1) When:01/30/2022 17:32:45 Comments:Return to the emergency room if your pain gets worse, you develop fever, vomiting recurs or any newsymptoms. With:Marcelo Call Address: [address] [facility] [place] [address]- Business (1) When:Within 3 Day(s) [facility]10-30-2022 Evaluation + Plan noteExtracted from: Title:ED Note Author:Earnest Guevara M.D. te:01/27/22 1. Abdominal pain (R10.9: Un specified [...] PT & PTT UA With Cult Reflex [facility]08-20-2022 Hospital Discharge instructions Patient Education 11/17/2021 20:23:44 Hypoglycemia, Ksxw-mi-Yhfh Hypoglycemia Hypoglycemia is when the sugar (glucose) [...] these instructions at home: General instructions Take vvwj-vyq-fenohzz and prescription medicines only as told by [...] 06/11/2010 Document Revised: 07/08/2019 Document Reviewed: 04/19/2016 [employer] Patient Education 2020 [employer] Follow Up Care 11/17/2021 17:29:57 With:Marcelo Call Address: [address] [facility] [place] [address]- Business (1) When:11/20/2021 20:12:53 [facility] No data available for this section [facility] Future Appointments Appointment Date:11/13/2021 02:45:00 PM Scheduled [facility] ([facility] Future Appointments Appointment Date:04/10/2022 10:15:00 AM Scheduled Provider:London DIAZ MD Location:[facility] Type[facility] Future Appointments Appointment Date:06/14/2022 12:30:00 PM Scheduled Provider: Location:[facility] Appointment Type:Surgery FT Future Scheduled Tests Radiology* NM Gastric Emptying Study 04/10/22 [facility] Evaluation + Plan note Future Appointments Appointment Date:08/01/2023 09:40:00 AM Scheduled Provider:Marcelo Call DO Location:[facility] Appointment Type: Open [facility] [place] Evaluation note* Diagnosis Anxiety- Primary Anxiety state, unspecified [facility] InformationNort [employer] Other History general Narrative - Reported* Type Description Date Medical History DEPRESSION Medical History HTN Medical History ARTHRITIS Medical History DIABETES Medical History NEUROPATHY Surgical History BILATERAL KNEE REPLACEMENT Surgical History LEFT HIP Surgical History LEFT THUMB Surgical History HYSTERECTOMY Surgical History GALLBLADDER Surgical History TUMOR LEFT SHOULDER Hospitalization History SEE ABOVE [employer] Other Hospital Discharge instructions No data available for this section [facility] No data available for this section [facility] Summary Purpose Family History No Family History Records FoundNo Family History Records Found No data available for this section No data available for this section No data available for this section No data available for this section No data available for this section No Family History Records FoundNo Family History Records Found Advance Directives No Advanced Directives Records FoundNo Advanced Directives Records FoundNo Advanced Directives Records FoundNo Advanced Directives Records Found Additional Source Comments Care Team (unrecognized sect ion and content) [employer] Developer Relationship Specialty Start Date End Date Marcelo Call MD [address] [place] [id number] PCP - General Family Medicine 12/19/22 INFORMATION SOURCE (unrecogn ized section and content) DATE CREATED AUTHOR 02/06/2022 [facility] DATE CREATED AUTHOR AUTHOR'S ORGANIZ ATION 08/11/2022 [employer] DATE CREATED AUTHOR AUTHOR'S ORGANIZ ATION 07/02/2023 [facility] EPIC DATE CREATED AUTHOR AUTHOR'S ORGANIZ ATION 07/11/2023 [facility] Reason for Visit (unrecogniz ed section [...] BE BASED ON THE PRIMARY CLINICAL RECORDS. [facility] [employer] [facility]. provides no warranty or guarantee of the accuracy or completeness of information in this document.
[2023-07-14 10:45] LABS: Bilirubin Urine NEGATIVE (NEGATIVE); Blood Urine SMALL (NEGATIVE); Clarity Urine CLEAR (CLEAR); Color Urine LT. YELLOW (YELLOW); Glucose Urine UA NEGATIVE (NEGATIVE); Ketones Urine NEGATIVE (NEGATIVE); Leukocyte Esterase Urine MODERATE (NEGATIVE); Nitrite Urine POSITIVE (NEGATIVE); Protein Urine NEGATIVE (NEG/TRACE); Urobilinogen Urine 0.2 EU/dL (0.2-1.0)
[2023-07-14 10:52] LABS: Urine Microscopic Indicated YES
[2023-07-14 10:54] LABS: Bacteria Urine SMALL #/HPF (NONE SEEN); Cast Seen? NONE SEEN #/LPF (NONE SEEN); Crystals Seen? None Seen #/HPF (None Seen); Mucus Urine TRACE (NONE SEEN); RBC Urine 0-2 #/HPF (0-2); Squamous Epithelial Cell Urine RARE #/LPF (NONE/RARE); Urine Culture Indicated YES
== END 2023-07-13 17:09 | disposition home or self-care (01) ==
LOC: LAB 17:08
PROVIDERS: PCP Family Medicine; Visit Provider Family Medicine
DX: R30.0 Dysuria (principal)
CPT/HCPCS: 81001; 87086; 87150; 87186

== ENCOUNTER 2023-10-16 08:48 | Outpatient (REF) | payer MEDICARE, MEDICAID, SELFPAY ==
--- OUTSIDE RECORDS SUMMARY | 2023-10-15 00:58 | XMS_ITS | CCD ---
Author Organization [facility] Care Team Providers Care Environmental Program Manager Name Role Phone Marcelo Call Primary Care Physician Efrem Matos Unavailable Unavailable Matthieu Ware Unavailable Unavailable Hayde Morrison Unavailable Unavailable Kady Stephenson Unavailable Unavailable ZidaAngie segura Unavailable Unavailable Ellyn Melendez I Unavailable Unavailable Ellyn Gómez Unavailable Unavailable Sienna Fernández Unavailable Unavailable Saulo, Dr. Chuck Moore Attending Yanni vailable Unavailable Primary Care Provider Unavailabl e PROVIDER, UNKNOWN Admitting Unavailable PROVIDER, UNKNOWN Attending Unavailable Ashish Chester Unavailable Vannessa Kaur Unavailable Unavailable Marcelo Call MD Primary Care Provider [phone] [facility] Primary Care Physician Unavailab Marcelo Emerson Primary Care Physician [phone] JOAQUIM RICE Attending Unavailable JOAQUIM RICE A Referring Unavailable JOAQUIM RICE Referring Unavailable JOAQUIM RICE Attending Unavailable Emely Mccall Attending Unavailable José MENESES Attending Unavailable Joaquim Rice Referring Unavailable Joaquim Rice Attending Unavailable Joaquim Rice Admitting Unavailable Lincoln Marshall Referring Unavailable Lincoln Marshall Attending Unavailable Lincoln Marshall Admitting Unavailable Soni PADGETT Attending Unavailable Reymundo JORDAN Admitting Unavailable Humble Riceson A Consulting Unavailable Brown, Joaquim A Consulting Unavailable Brown, Joaquim A Consulting Unavailable Brown, Joaquim A Consulting Unavailable Brown, Joaquim A Consulting Unavailable Brown, Joaquim A Consulting Unavailable Brown, Joaquim A Consulting Unavailable Brown, Joaquim A Consulting Unavailable Brown, Joaquim A Consulting Unavailable Brown, Joaquim A Consulting Unavailable Hasmukh, Joaquim A Consulting Unavailable Cordell Grossman Consulting Unavailable Joaquim Rice Attending Unavailable Joaquim Rice A Admitting Unavailable Humble Riceson A Referring Unavailable DO Cordell Grossman Consulting Unavaila Cordell Wagner Consulting Unavailable Blank, Ashish S Consulting Unavailable Owen Chester Ashish S Consulting Unavailable Blank, Ashish S Consulting Unavailable Blank, Ashish S Consulting Unavailable Blank, Ashish S Consulting Unavailable Blank, Ashish S Consulting Unavailable Blank, Ashish S Consulting Unavailable Blank, Ashish S Consulting Unavailable Blank, Ashish S Consulting Unavailable Blank, Ashish S Consulting Unavailable Raul Arnold Attending Unavailable José MENESES [...] Referring Unavailable Brown, Joaquim A Attending Unavailable Hasmukh, Joaquim A Admitting Unavailable Link, DO Marcelo Rivers Attending Unavailable Link, DO Marcelo Rivers Attending Unavailable Link, DO Marcelo Rivers Attending Unavailable Link, DO Marcelo Rivers Attending Unavailable Link, DO Marcelo Rivers Attending Unavailable Link, DO Marcelo Rivers Attending Unavailable Allergies Allergy Classification Reported Allergen(s) Allergy Type Date of Onset Reaction(s) Facility Acetaminophen / HYDROcodone (1 source) Acetaminophen / HYDROcodone; Translations: [Vicodin] Drug Allergy [facility] Repository bacitracin / neomycin / polymyxin b (1 source) bacitracin / neomycin / polymyxin b; Translations: [bacitracin/neomy andrea/polymyxin B topical] Drug Allergy Eruption of skin (disorder) [facility] Bacitracin / Neomycin / Polymyxin B (1 source) Bacitracin / Neomycin / Polymyxin B; Translations: [Neosporin] Drug Allergy [facility] Rep[facility] Latex (1 source) Latex; Translations: [Latex] Substance Allergy [facility] NSAIDs (3 sources) celecoxib; Translations: [celecoxib] Drug Allergy Eruption of skin (disorder) [facility] Penicillins (antibiotic) (4 sources) Amoxicillin; Translations: [amoxicillin] Drug Allergy Anaphylaxis (disorder) [facility] Comment on above: Tolerated ceftriaxon e several times in past Sulfonamides (antibiotic) (2 sources) Sulfamethoxazole; Translations: [sulfamethoxazole ] Drug Allergy unknown [facility] Triclosan (1 source) Triclosan; Translations: [triclosan topical] Drug Allergy Eruption of skin (disorder) [facility] (20 sources) Adhesive bandage; Translations: [Adhesive Bandage] Drug allergy Eruption of skin (disorder) [facility] (20 sources) Amoxicillin; Translations: [amoxicillin] Drug Allergy 12-20-19 Anaphylaxis (disorder), Anaphylaxis [facility] Comment on above: Tolerated ceftriaxon e several times in past (20 sources) bacitracin / neomycin / polymyxin b; Translations: [bacitracin/neomy andrea/polymyxin B topical] Drug Allergy Eruption of skin (disorder) [facility] (20 sources) celecoxib; Translations: [celecoxib] Drug Allergy Eruption of skin (disorder) [facility] (20 sources) Penicillin; Translations: [penicillin] Drug Allergy Anaphylaxis (disorder) [facility] Comment on above: Tolerated ceftriaxon e several times in past (20 sources) Sulfamethoxazole; Translations: [sulfamethoxazole ] Drug Allergy unknown [facility] (20 sources) Triclosan; Translations: [triclosan topical] Drug Allergy Eruption of skin (disorder) [facility] (20 sources) goldbond cream; Translations: [goldbond cream] Drug allergy Eruption of skin (disorder) [facility] (4 sources) Aloe Extract Drug Allergy 12-20-19 23 Unknown [facility] (4 sources) Bacitracin / Polymyxin B Drug Allergy 12-20-19 23 Rash [employer] Other (4 sources) Benzalkonium Drug Allergy 04-20-19 14 Unknown [employer] Other (4 sources) corn starch Drug Allergy 12-20-19 23 Unknown [employer] Other (4 sources) dimethicone Drug Allergy 12-20-19 Unknown [employer] Other (4 sources) Kaolin Drug Allergy 12-20-19 23 Unknown [employer] Other (3 sources) meloxicam Drug Allergy Unknown [employer] Other (4 sources) pramoxine Drug Allergy 12-20-19 23 Unknown [employer] Other (3 sources) Zinc Oxide Drug Allergy Unknown [employer] Other (4 sources) Substance with sulfonamide structure and antibacterial mechanism of action (substance) Drug allergy 12-20-19 23 Unknown [employer] Other (1 source) celecoxib Drug Allergy 04-20-19 14 Rash, Unknown [facility] (1 source) meloxicam Drug Allergy 12-20-19 [facility] (1 source) Menthol Drug Allergy 12-20-19 23 Unknown [facility] (1 source) Triclosan Drug Allergy 12-20-19 Rash [facility] (1 source) Zinc oxide Allergy to substance 12-20-19 Unknown [facility] (1 source) Wound Dressing Adhesive Drug Allergy 12-20-19 Rash [facility] Medications Current Medications Medication Drug Class(es) Dates Sig (Normalized) Sig (Original) acetaminophen 325 mg oral tablet (9 sources) Start: 04-11-2023 take 325 mg by mouth three times daily acetaminophen 325 mg, Oral, TID, Refills(s) 0, Pain Start Date: 04/11/23 Status: Ordered acetaminophen 325 mg / HYDROcodone bitartrate 5 mg oral tablet (16 sources) Opioid Agonist Start: 01-28-2022 take 1 tablet by mouth twice daily for pain [facility] 325 mg-5 mg oral tablet 1 tab(s), Oral, BID for pain, Refill(s) 0 Start Date: 01/28/22 Status: Ordered acetaminophen 325 mg / oxyCODONE hydrochloride 5 mg oral tablet (19 sources) Opioid Agonist Start: 08-14-2023 take 1 tablet by mouth every twelve hours for pain acetaminophen-oxyco done 325 mg-5 mg Tab 1 tab(s), Oral, q12hr for pain, 60 tab(s), Refill(s) 0, 162.5, cm, 08/07/23 11:49:00 EDT, Height/Length Dosing, 70.9, kg, 08/07/23 11:49:00 EDT, Weight Dosing Start Date: 08/14/23 Status: Ordered Start: 07-02-2023 take 1 tablet by [facility] every eight hours Percocet 5 mg-325 mg oral tablet 1 tab(s), Oral, q8hr, 90 tab(s), Refill(s) 0, [facility], 162.5, cm, 07/01/23 14:10:00 EDT, Height/Length Dosing, 68.8, kg, 07/01/23 14:10:00 EDT, Weight Dosing Start Date: 07/02/23 Status: Ordered Start: 07-01-2023 take 1 tablet by [facility] every six hours Percocet 5 mg-325 mg oral tablet 1 tab(s), Oral, q6hr, 120 tab(s), Refill(s) 0, [facility], 162.5, cm, 07/01/23 14:10:00 EDT, Height/Length Dosing, 68.8, kg, 07/01/23 14:10:00 EDT, Weight Dosing Start Date: 07/01/23 Status: Ordered Start: 04-11-2023 take 1 tablet by [facility] every four hours for pain Percocet 10/325 [...] M19.9 hip fracture, 80 tab(s), Refill(s) 0, [facility], 162, cm, 11/24/22 0:45:00 EDT, Height/Length [...] for 3 day(s), 12 tab(s), Refill(s) 0, [id number], 165, cm, 03/13/22 16:40:00 EST, Height/Length Dosing, 73.6, kg, 03/13/22 16:40:00 EST, Weight Dosing Start Date: 03/13/22 Stop Date: 03/16/22 Status: Ordered take 1 tablet by mindy th every four hours oxyCODONE-Acetaminophen 10-325 MG 1 tablet as needed Orally every 4 hrs Active ascorbic acid 500 mg oral tablet (17 sources) Vitamin C Start: 11-27-2022 take 1 [...] 0 Active atorvastatin 40 mg oral tablet (13 sources) HMG-CoA Reductase Inhibitor Start: 02-13-2023 take 1 tablet by mouth once daily atorvastatin 40 mg Tab 40 mg = 1 tab(s), Oral, Daily, Refills(s) 0, High cholesterol Start Date: 02/13/23 Status: Ordered bisacodyl 5 mg delayed release oral tablet (14 sources) Stimulant Laxative Start: 11-27-2022 bisacodyl (Dulcolax) 5 MG EC tablet Take 10 mg by mouth. 0 11/27/2022 Active Start: 11-27-2022 take 2 tablets by mo [facility] once as needed for constipation bisacodyl [...] Active Start: 05-23-2021 take 1 tablet by mindy [...] 150 mg/12 hours oral tablet, extended release (12 sources) Start: 12-03-2022 BuPROPion (Eqv-Wellbutrin SR) 150 [...] Status: Ordered celecoxib 100 mg oral capsule (12 sources) Nonsteroidal Anti-inflammatory Drug Start: 12-24-2022 take [...] q8hr, # 30 cap(s), Refills(s) 0, Pharmacy: [facility], 163, cm, 05/23/21 14:18:00 EST, Height/Length [...] Intravenous Active diazePAM 2 mg oral tablet (18 sources) Benzodiazepine Start: 08-04-2023 Valium 2 mg Ta b 2 mg = 1 tab(s), Oral, TID, Every 8 hours for management of anxiety, # 90 tab(s), Refills(s) 0, Pharmacy: [facility], 162.5, cm, 07/01/23 14:10:00 EDT, Height/Length Dosing, 68.8, kg, 07/01/23 14:10:00 EDT, Weight Dosing Start Date: 08/04/23 Status: Ordered Start: 07-01-2023 Valium 2 mg Ta b 2 mg = 1 tab(s), Oral, TID, Every 8 hours for management of anxiety, # 90 tab(s), Refills(s) 0, Pharmacy: [facility], 162.5, cm, 07/01/23 14:10:00 EDT, Height/Length [...] Active dicyclomine hydrochloride 10 mg oral capsule (7 sources) Anticholinergic Start: 08-12-2023 take 1 capsule by mouth four times daily Bentyl 10 mg Cap 10 mg = 1 cap(s), Oral, QID, # 120 cap(s), Refills(s) 1, Pharmacy: [facility], 162.5, cm, 08/07/23 11:49:00 EDT, Height/Length Dosing, 70.9, kg, 08/07/23 11:49:00 EDT, Weight Dosing Start Date: 08/12/23 Status: Ordered Start: 08-05-2023 take 1 capsule by [facility] four times daily Bentyl 10 mg Cap 10 mg = 1 cap(s), Oral, QID, # 120 cap(s), Refills(s) 1, Pharmacy: [facility], 162.5, cm, 07/01/23 14:10:00 EDT, Height/Length Dosing, 68.8, kg, 07/01/23 14:10:00 EDT, Weight Dosing Start Date: 08/05/23 Status: Ordered Start: 07-01-2023 End: 07-15-2023 Bentyl 10 mg Cap Refills(s) 0 Start Date: 07/01/23 Status: Ordered Start: 03-13-2022 End: 03-20-2022 take 1 capsule by mouth four times daily Bentyl 10 mg Cap 10 mg = 1 cap(s), Oral, QID, X 7 day(s), # 28 cap(s), Refills(s) 0, Pharmacy: [facility], 165, cm, 03/13/22 16:40:00 EST, Height/Length [...] auto-injector (20 sources) GLP-1 Receptor Agonist Start: 07-05-2023 inject 0.75 mg by subcutaneous injection every week dulaglutide 0.75 mg/0.5 mL subcutaneous solution 0.75 mg, SubCutaneous, qWeek, # 2 mL, Refills(s) 11, Pharmacy: [facility], 162.5, cm, 07/01/23 14:10:00 EDT, Height/Length Dosing, 68.8, kg, 07/01/23 14:10:00 EDT, Weight Dosing Start Date: 07/05/23 Status: Ordered Start: 07-01-2023 inject 0.5 mL by sub cutaneous injection every week Trulicity Pen 0.75 mg/0.5 [...] Start: 05-23-2021 take 1 capsule by [facility] once daily esomeprazole 20 mg Cap-DR 20 mg = 1 cap(s), Oral, Daily, # 30 cap(s), Refills(s) 0, Control of stomach acid Start Date: 05/23/21 Status: Ordered take 1 capsule by [facility] once daily in the morning esomeprazole (NexIUM) [address] capsule TAKE 1 CAPSULE BY MOUTH EVERY MORNING prior to any food or medications 0 Active ferrous sulfate 325 mg oral tablet (17 sources) Start: 11-27-2022 take 1 tablet by mouth once daily ferrous sulfate 325 mg Tab 325 mg = 1 tab(s), Oral, Daily, Refills(s) 0 Start Date: 11/27/22 Status: Ordered take 1 tablet by mouth three vadim es weekly Ferrous Sulfate 325 (65 Fe) MG 1 tablet Orally Three times a Week Active gabapentin 300 mg oral capsule (20 sources) Anti-epileptic Agent Start: 08-01-2023 take 1 capsule by mouth three times daily gabapentin 300 mg Cap 300 mg = 1 cap(s), Oral, TID, # 90 cap(s), Refills(s) 1, Pharmacy: [facility], 162.5, cm, 07/01/23 14:10:00 EDT, Height/Length Dosing, 68.8, kg, 07/01/23 14:10:00 EDT, Weight Dosing Start Date: 08/01/23 Status: Ordered Start: 07-01-2023 take 1 capsule by [facility] three times daily gabapentin 300 mg Cap 300 mg = 1 cap(s), Oral, TID, # 90 cap(s), Refills(s) 1, Pharmacy: [facility], 162.5, cm, 07/01/23 14:10:00 EDT, Height/Length Dosing, 68.8, kg, 07/01/23 14:10:00 EDT, Weight Dosing Start Date: 07/01/23 Status: Ordered Start: 01-28-2022 take 800 mg by mouth three times daily gabapentin 800 mg, Oral, TID, Refills(s) 0, Neuropathy Start Date: 01/28/22 Status: Ordered Start: 02-26-2018 take 1 capsule by [facility] three times daily gabapentin 300 mg [...] injectable solution (20 sources) Insulin Analog Start: 07-29-2023 inject 15 [IU] by subcutaneous injection once daily at bedtime Lantus 100 units/mL Injection-Insulin 15 unit(s), SubCutaneous, Once a day (at bedtime), # 15 mL, Refills(s) 5, Pharmacy: [facility], 162.5, cm, 07/01/23 14:10:00 EDT, Height/Length Dosing, 68.8, kg, 07/01/23 14:10:00 EDT, Weight Dosing Start Date: 07/29/23 Status: Ordered Start: 08-14-2020 inject 15 [IU] by mahoney bcutaneous injection [...] Daily, # 30 tab(s), Refills(s) 1, Pharmacy: [facility], 162.5, cm, 07/01/23 14:10:00 EDT, Height/Length [...] liquid Take by mouth. 0 Active nystatin 100 unt/mg topical powder (6 sources) Polyene Antifungal Start: 08-29-2023 nystatin Top 100,000 units/g Pwdr 1 rhonda, Topical, BID, 60 gram, Refill(s) 2, [facility], 162.5, cm, 08/07/23 11:49:00 EDT, Height/Length Dosing, 70.9, kg, 08/07/23 11:49:00 EDT, Weight Dosing Start Date: 08/29/23 Status: Ordered Start: 12-19-2022 nystatin Top 1 00,000 units/g Crm 15 gram 1 rhonda, Topical, BID, 15 gram, Refill(s) 0 Start Date: 12/19/22 Status: Ordered omeprazole 20 mg delayed release oral capsule (11 sources) Proton Pump Inhibitor Start: 02-13-2023 take [...] 0 Active ondansetron 4 mg oral tablet (7 sources) Serotonin-3 Receptor Antagonist Start: 07-01-2023 take 1 tablet by mouth every six hours as needed for nausea ondansetron 4 mg Tab 4 mg = 1 tab(s), Oral, q6hr, PRN Nausea/Vomiting, # 90 tab(s), Refills(s) 1, Pharmacy: [facility], 162.5, cm, 07/01/23 14:10:00 EDT, Height/Length Dosing, 68.8, kg, 07/01/23 14:10:00 EDT, Weight Dosing Start Date: 07/01/23 Status: Ordered 24 hr oxybutynin chloride 5 mg extended release oral tablet (5 sources) Cholinergic Muscarinic Antagonist Start: 07-01-2023 take 1 tablet by mouth once daily oxybutynin 5 mg ER Tab 5 mg = 1 tab(s), Oral, Daily, # 30 tab(s), Refills(s) 1, Pharmacy: 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, 162.5, cm, 07/01/23 14:10:00 EDT, Height/Length Dosing, 68.8, kg, 07/01/23 14:10:00 EDT, Weight Dosing Start Date: 07/05/23 Status: Ordered rosuvastatin calcium 20 mg oral tablet (20 [...] Requisition, Supply Start Date: 12/24/22 Status: Ordered sensors (4 sources) Start: 07-05-2023 sensors sensors, See Instructions, 2 EA, 4, francheska 2 sensors change q 14 days, [facility], 162.5, cm, 07/01/23 14:10:00 EDT, Height/Length Dosing, 68.8, kg, 07/01/23 14:10:00 EDT, Weight Dosing Start Date: 07/05/23 Status: Ordered traZODone hydrochloride 50 mg oral tablet (20 sources) Serotonin Reuptake Inhibitor Start: 08-07-2023 traZODONE 50 mg Tab 25 mg = 0.5 tab(s), Oral, Once a day (at bedtime), # 15 tab(s), Refills(s) 3, Pharmacy: [facility], 162.5, cm, 08/07/23 11:49:00 EDT, Height/Length Dosing, 70.9, kg, 08/07/23 11:49:00 EDT, Weight Dosing Start Date: 08/07/23 Status: Ordered Start: 04-11-2023 traZODONE 50 m g Tab 25 mg = 0.5 tab(s), Oral, Daily, Refills(s) 0, Depression Start Date: 04/11/23 Status: Ordered Start: 04-11-2023 take 1 tablet by mindy once daily at bedtime traZODONE 100 mg Tab 100 mg = 1 tab(s), Oral, Daily, At bedtime, # 30 tab(s), Refills(s) 1, Pharmacy: [facility], 162.5, cm, 07/01/23 14:10:00 EDT, Height/Length Dosing, 68.8, kg, 07/01/23 14:10:00 EDT, Weight Dosing Start Date: 07/01/23 Status: Ordered Start: 05-23-2021 take 2 tablets by mo [facility] once daily at bedtime traZODONE 100 mg Tab 200 mg = 2 tab(s), Oral, Once a day (at bedtime), # 90 tab(s), Refills(s) 0, Insomnia Start Date: 05/23/21 Status: Ordered take 1 tablet by mindy every twenty-four hours traZODone HCl 100 MG 1 tablet at bedtime Orally Once a day Active Zofran ODT 4 mg Tab-Dis (1 source) Start: 11-21-2021 take 1 tablet by mouth every eight hours as needed for nausea Zofran ODT 4 mg Tab-Dis 4 mg = 1 tab(s), Oral, q8hr, PRN Nausea/Vomiting, # 16 tab(s), Refills(s) 0, Pharmacy: [facility], 162.6, cm, 11/21/21 19:39:00 EDT, Height/Length [...] follow instructions per packaging and physician's handout, [id number], 165, cm, 04/10/22 11:05:00 EST, Height/Length Dosing, 70.4, kg, 04/10/22 11:05:00 EST, Weight Dosing Start Date: 04/10/22 Status: Ordered potassium chloride 20 meq extended release oral tablet (13 sources) Start: 02-13-2023 take 2 tablets by mouth once daily potassium chloride 20 mEq ER Tab 40 mEq = 2 tab(s), Oral, Daily, Refills(s) 0, Prophylaxis Start Date: 02/13/23 Status: Ordered Start: 02-13-2023 take 1 tablet by mindy th once daily potassium chloride 20 mEq ER Tab 20 mEq = 1 tab(s), Oral, Daily, Refills(s) 0, Prophylaxis Start Date: 02/13/23 Status: Ordered take 20 mEq by mouth in the morning potassium chloride (Klor-Con) 20 MEQ packet Take 20 mEq by mouth in the morning and 20 mEq before bedtime. 0 Active take 2 tablets by mo [facility] every twenty-four hours Potassium Chloride Elena ER [...] Anemia 11-26-2017 Episodic Deficiency and other anemia (13 sources) Iron deficiency anemia; Translations: [Iron deficiency [...] Episodic Fracture of neck of femur (hip) (14 sources) Closed fracture of neck of femur; [...] above: left right Other aftercare (2 sources) manager intermediate (current) use of antibiotics Episodic Other and unspecified benign neoplasm (20 sources) History of polyp of colon; Translations: [...] Chronic Other diseases of bladder and urethra (3 sources) Detrusor overactivity; Translations: [Overactive bladder] Onset: 4 Chronic Other diseases of bladder and urethra (5 sources) Overactive bladder 07-01-2023 Chronic Other gastrointestinal disorders (20 sources) Irritable bowel syndrome 03-23-2020 Chronic Other gastrointestinal disorders (1 source) Diarrhea; Translations: [Diarrhea, unspecified] Onset: 2 Episodic Other gastrointestinal disorders (8 sources) Heartburn; Translations: [Heartburn] Onset: 3 Episodic Other gastrointestinal disorders (20 sources) Dysphagia; Translations: [Dysphagia, unspecified] Onset: 3 Episodic Other injuries and conditions due to external causes (2 sources) Injury of head; Translations: [Unspecified injury of head, initial encounter] Onset: 3 Episodic Other injuries and conditions due to external causes (1 source) History of fall; Translations: [History of falling] Onset: 4 Episodic Other nervous system disorders (20 sources) Neuropathy 12-22-2018 Chronic Other nervous system disorders (5 sources) Chronic pain; Translations: [Other chronic pain] [...] Episodic Other nutritional; endocrine; and metabolic disorders (3 sources) Overweight in adulthood with body mass index [...] unspecified] Onset: 2 Episodic Residual codes; unclassified (4 sources) Patient encounter status; Translations: [Other specified [...] Onset: 3 12-22-2018 Chronic Urinary tract infections (13 sources) Urinary tract infectious disease; Translations: [Urinary tract infection, site not specified] Onset: 3 Episodic Viral infection (7 sources) Herpes zoster with complication; Translations: [Zoster [...] Results Test Name Value Interpretation Reference Range Facil ity US LE Venous Duplex Righton 09-24-2023 US LE Venous Duplex Right Normal [facility] Consent for Treatmenton 08-30 Consent for Treatment [id number] [facility] Physician Orderon 09-22-2023 Physician Order [id number] [facility] Ambulatory Visit Summaryon 0 09-18-2023 Ambulatory Visit Summary Normal [address] [place] [address]-\.br\ Medications\.br\ What How Much When Why Instructions\.br\ Unchanged acetaminophen-oxyc odone (acetaminophen-oxy codone 325 mg-5 mg Tab) 1 Tablets By Mouth Every 12 hours as needed for for pain\.br\ Unchanged ascorbic acid (ascorbic acid 500 mg Tab) 1 Tablets By Mouth 2 times a day\.br\ Unchanged atorvastatin (atorvastatin 40 mg Tab) 1 Tablets By Mouth Every day\.br\ Unchanged bisacodyl (bisacodyl 5 mg Oral EC Tab) 2 Tablets By Mouth Once as needed for Constipation\.br\ Unchanged buPROPion (BuPROPion (Eqv-Wellbutrin SR) 150 mg/ 12 hours oral tablet, extended release) 1 Tablets By Mouth 2 times a day\.br\ Unchanged carvedilol (carvedilol 12.5 mg Tab) 1 Tablets By Mouth 2 times a day\.br\ Unchanged celecoxib (CeleBREX 100 mg Cap) 1 Capsules By Mouth 2 times a day as needed for Pain\.br\ Unchanged diazepam (Valium 2 mg Tab) 1 Tablets By Mouth 3 times a day Depression with anxiety Every 8 hours for management of anxiety \.br\ Unchanged dicyclomine (Bentyl 10 mg Cap) 1 Capsules By Mouth 4 times a day\.br\ Unchanged dulaglutide (dulaglutide 0.75 mg/ 0.5 mL subcutaneous solution) 0.75 Milligram Subcutaneous Every week\.br\ Unchanged ferrous sulfate (ferrous sulfate 325 mg Tab) 1 Tablets By Mouth Every day\.br\ Unchanged gabapentin (gabapentin 300 mg Cap) 1 Capsules By Mouth 3 times a day Diabetes mellitus with polyneuropathy Chronic GERD Chronic pain Depression with anxiety HTN (hypertension) Hypothyroidism Herpes zoster lesion BMI 26.0-26.9,adult Non-smoker\.br\ Unchanged insulin glargine (Lantus 100 units/ mL Injection-Insulin) 15 Units Subcutaneous Once a day (at bedtime)\.br\ Unchanged levothyroxine (levothyroxine 112 mcg (0.112 mg) Tab) 1 Tablets By Mouth Every day\.br\ Unchanged lisinopril (lisinopril 10 mg Tab) 1 Tablets By Mouth Every day HTN (hypertension)\.br \ Unchanged lisinopril (lisinopril 40 mg Tab) 1 Tablets By Mouth Every day\.br\ Unchanged Misc Prescription (reader) See instructions 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 \.br\ Unchanged Misc Prescription (sensors) See instructions francheska 2 sensors change q 14 days \.br\ Unchanged nystatin topical (nystatin Top 100,000 units/ g Pwdr) 1 Application Topical 2 times a day Intertrigo\.br\ Unchanged omeprazole (omeprazole 20 mg Cap-DR) 1 Capsules By Mouth Every day\.br\ Unchanged ondansetron (ondansetron 4 mg Tab) 1 Tablets By Mouth Every 6 hours as needed for Nausea/Vomiting Chronic GERD\.br\ Unchanged oxybutynin (oxybutynin 5 mg ER Tab) 1 Tablets By Mouth Every day Overactive bladder\.br\ Unchanged paroxetine (paroxetine 40 mg Tab) 1 Tablets By Mouth Every day\.br\ Unchanged potassium chloride (potassium chloride 20 mEq ER Tab) 2 Tablets By Mouth Every day\.br\ Unchanged trazodone (traZODONE 50 mg Tab) 0.5 Tablets By Mouth Once a day (at bedtime) Insomnia\.br\ Allergies\.br\ Adhesive Bandage (Rash)\.br\ Celebrex (Rash)\.br\ Neosporin (Rash)\.br\ Noxema Triple Clean (Rash)\.br\ amoxicillin (Anaphylaxis)\.br\ goldbond cream (Rash)\.br\ penicillin (Anaphylaxis)\.br\ sulfamethoxazole (unknown)\.br\ Problems\.br\ Ongoing - Any problem that you are currently receiving treatment for.\.br\ At risk for falls\.br\ Chronic GERD\.br\ Chronic pain\.br\ Closed subcapital fracture of right femur with routine healing, subsequent encounter\.br\ Depression with anxiety\.br\ Diabetes mellitus with polyneuropathy\.br \ Dysphagia\.br\ Herpes zoster lesion\.br\ HTN (hypertension)\.br \ Hypothyroidism\.br \ Iron deficiency anemia\.br\ Lower back pain\.br\ Obesity\.br\ Overactive bladder\.br\ Personal history of colonic polyps\.br\ Smoker\.br\ Historical - Any problem that you are no longer receiving treatment for.\.br\ Arthritis\.br\ Bridgett esophagitis\.br\ CMC arthritis, thumb, degenerative\.br\ Diverticulitis\.br \ Fibrocystic breast changes\.br\ Irritable bowel syndrome\.br\ Kidney Stones\.br\ UTI (urinary tract infection)\.br\ Patient Survey\.br\ You may receive a survey via text or e-mail asking about your office visit. Please share your experience with us by completing your survey. We appreciate your feedback and thank you for choosing us for your care.\.br\ \.br\ [facility] Family Medicine Office/Clini c Noteon 09-18-2023 Family Medicine Office/Clinic Note Normal [facility] Comment on above: Result Comment: Elec tronically Signed By: Marcelo Call DO\.br\Date and Time Signed: 09/18/23 15:14 EDT [facility] Recordson 09-15 [facility] Records [id number]#1.00TIFF Normal [facility] Recordson 09-02 [facility] Records [id number]#1.00TIFF Normal [facility] Recordson 08-31 [facility] Records [id number]#1.00TIFF Normal [facility] Retail - Clinical Noteon Retail - Clinical Note [id number]#1.00TIFF Normal [facility] Recordson 08-21 [facility] Records [id number]#1.00TIFF Normal [facility] Recordson 08-19 [facility] Records [id number]#1.00TIFF Normal [facility] Records [id number]#1.00TIFF Normal [facility] Records [id number]#1.00TIFF Normal [facility] Recordson 08-11 [facility] Records [id number]#1.00TIFF Normal [facility] Physician Orderon 08-11-2023 Physician Order [id number]#1.00TIFF [facility] Ambulatory Visit Summaryon 0 5-09-2024 Ambulatory Visit Summary Normal [facility] Family Medicine Office/Clini c Noteon 08-07-2023 [facility] Medicine Office/Clinic Note Normal [facility] Comment on above: Result Comment: Elec tronically Signed By: Marcelo Call DO\.br\Date and Time Signed: 08/07/23 13:[address] [facility] [address] [facility] Normal [facility] deejay [facility] Retail - Clinical Noteon Retail - Clinical Note [id number]#1.00TIFF Normal [facility] Lab Reportson 07-17-2023 Lab Reports [id number]#1.00TIFF Normal [facility] Recordson 07-16 [facility] Records [id number]#1.00TIFF Normal [facility] Records [id number]#1.00TIFF Normal [facility] Records [id number]#1.00TIFF Normal [facility] Records [id number]#1.00TIFF Normal [facility] Lab Reportson 07-15-2023 Lab Reports [id number]#1.00TIFF Normal [facility] Family Medicine Office/Clini c Noteon 07-09-2023 [facility] Medicine Office/Clinic Note Normal [facility] Comment on above: Result Comment: Elec tronically Signed By: Marcelo Call DO\.br\Date and Time Signed: 07/09/23 15:53 EDT Ambulatory Visit Summaryon 0 07-01-2023 Ambulatory Visit Summary Normal [facility] Legal Correspondence Officeo n 07-01-2023 Legal Correspondence Office [id number]#1.00TIFF Normal [facility] Patient Educationon 07-01-19 Patient Education Normal [facility] Consent for Anesthesiaon Consent for Anesthesia [id number]#1.00TIFF Normal [facility] IntraOperative Documentson 0 04-17-2023 IntraOperative Documents [id number]#1.00TIFF Normal [facility] IntraOperative Documentson 0 04-15-2023 IntraOperative Documents [id number]#1.00TIFF Normal [facility] Consent for Anesthesiaon Consent for Anesthesia [id number]#1.00TIFF Normal [facility] Discharge Instructionson Discharge Instructions [id number]#1.00TIFF [facility] Main OR Intraoperative Recor don 04-14-2023 Main OR Intraoperative Record Normal [facility] Outside Recordson 04-14-2023 Outside Records [id number]#1.00TIFF Normal [facility] Preoperative Documentson Preoperative Documents [id number]#1.00TIFF Normal [facility] Capillary Glucose POCon 03-31 Glucose [Mass/Vol] 177 mg/dL High 55-99 [facility] Comment on above: Result Comment: Lucille simons Meter Performed By: #### 2 [id number] ####[facility] [address] [place] [address] Consent for Procedure/Surger yon 04-11-2023 Consent for Procedure/Surgery [id number]#1.00TIFF Normal [facility] Consent for Treatmenton 03-31 Consent for Treatment [id number]#1.00TIFF Normal [facility] Discharge Instructionson Discharge Instructions Normal [facility] Comment on above: Result Comment: Elec tronically Signed By: Edgar LEES, Arlette Eugene\.br\Date and Time Signed: 04/11/23 13:31 EST Discharge Instructions Normal [facility] Comment on above: Result Comment: Elec tronically Signed By: Jackelin LEES, Becca Palomares\.br\Date and Time Signed: 04/11/23 13:07 EST H&P Updateon 04-11-2023 H&P Update [id number]#1.00TIFF Normal [facility] Inpatient Patient Summaryon 04-11-2023 Inpatient Patient Summary [facility] Main OR PACU I Recordon 03-31 Main OR PACU I Record Normal [facility] Monitor Recordon 04-11-2023 Monitor Record [id number]#1.00TIFF [facility] Monitor Record [id number]#1.00TIFF [facility] Operative Reporton Operative Report Normal [facility] Comment on above: Result Comment: Elec tronically Signed By: Joaquim Rice DO\.br\Date and Time Signed: 04/11/23 12:58 EST Outpatient Surgery Discharge Instructionon 04-11-2023 Outpatient Surgery Discharge Instruction Normal [facility] Patient Education - Texton 0 04-11-2023 Patient Education - Text [facility] Progress Note-Physicianon Progress Note-Physician [facility] Comment on above: Result Comment: Elec tronically Signed By: Can Kaplan Jr., DO.br\Date and Time Signed: 04/11/23 16:31 EST Progress Note-Physician [facility] Comment on above: Result Comment: Elec tronically Signed By: Can Kaplan Jr., DO.br\Date and Time Signed: 04/11/23 10:43 EST Insurance Correspondence Off iceon 04-10-2023 Insurance Correspondence Office [id number]#1.00TIFF Normal [facility] Prescriptions/Work Noteson 1 05-14-2022 Prescriptions/Work Notes [id number]#1.00TIFF Normal [facility] CHEMISTRYOrdered By: SYSTEM SYSTEM on 02-13-2023 Anion gap [Moles/Vol] 10 mmol/L Normal 6 - 16 mEq/L [facility] Remisol Chloride [Moles/Vol] 112 mmol/L High 101 - 111 mmol/ L [facility] Remisol CO2 [Moles/Vol] 21 mmol/L Normal 21 - 31 mmol/L [facility] Remisol Creatinine [Mass/Vol] 0.7 mg/dL Normal 0.5 - 1.3 mg/d L [facility] Remisol GFR/1.73 sq M.predicted among non-blacks MDRD (S/P/Bld) [Vol rate/Area] 94 mL/min/1.73 m2 Normal >=59mL/min/1.[address] [facility] Chem S Comment on above: Interpretive Data: C hronic kidney disease could be indicated at eGFR's of less than 60 mL/min/1.73m2. Kidney failure is indicated at less than 15 mL/min/1.73m2. Glucose post fast [Mass/Vol] 147 mg/dL High 55 - 99 mg/dL FT Remisol Potassium [Moles/Vol] 3.5 mmol/L Normal 3.5 - 5.3 mmol /L [facility] Remisol Sodium [Moles/Vol] 139 mmol/L Normal 135 - 145 mmol/L [facility] Remisol Urea nitrogen [Mass/Vol] 14 mg/dL Normal 5 - 21 mg/dL [facility] Remisol CHEMISTRYOrdered By: Lab ROP User on 02-13-2023 Glucose [Mass/Vol] 149 mg/dL High 55 - 99 mg/dL FT C POC Subsection POC Username NELLY ROJAS Invalid Interpretation Code [facility] POC Subsection Sodium [Moles/Vol] 328583973636 mmol/L Invalid Interpretation Code [facility] POC Subsection Sodium [Moles/Vol] 830958141 mmol/L Invalid Interpretation Code [facility] POC Subsection HEMATOLOGYOrdered By: Gail Felix on 02-13-2023 Erythrocyte distribution width (RBC) [Ratio] 17.0 % High 10.9 - 14.2 % [facility] HemeAutoSS Hematocrit (Bld) [Volume fraction] 30.8 % Low 34.0 - 46.0 % [facility] HemeAutoSS Hemoglobin (Bld) [Mass/Vol] 9.9 g/dL Low 12.0 - 16.0 gm/dL [facility] HemeAutoSS MCH (RBC) [Entitic mass] 28.3 pg Normal 27.0 - 34.[address] [facility] HemeAutoSS MCHC (RBC) [Mass/Vol] 32.2 g/dL Normal 31.4 - 36.0 gm /dL [facility] HemeAutoSS MCV (RBC) [Entitic vol] 87.8 fL Normal 80.0 - 100.[address] [facility] HemeAutoSS Platelet mean volume (Bld) [Entitic vol] 8.6 fL Normal 6.4 - 10.[address] [facility] HemeAutoSS Platelets (Bld) [#/Vol] 200.0 E9/L Normal 150.0 - 500.0 E9/L [facility] HemeAutoSS RBC (Bld) [#/Vol] 3.5 E12/L Low 4.3 - 5.9 E12/L [facility] HemeAutoSS WBC corrected for nucl RBC Auto (Bld) [#/Vol] 8.3 E9/L Normal 4.0 - 11.0 E9/L [facility] HemeAutoSS No Panel InformationOrdered By: Pita Butterfield on 02-13-2023 GS Occasional epithelial cells Occasional White Blood Cells No organisms seen. [facility] Blood Transfusion Recordon 1 04-07-2022 Blood Transfusion Record [id number]#1.00TIFF Normal [facility] IntraOperative Documentson 1 IntraOperative Documents [id number]#1.00TIFF Normal [facility] IntraOperative Documentson 1 IntraOperative Documents [id number]#1.00CD:1 27 Normal [facility] C Blood Charcoalon 3 Blood Culture Charcoal Normal [facility] Comment on above: Performed By: #### 1 [id number] ####[facility] [address] [place] [address] Consent for PICC lineon 11-30 Consent for PICC line [id number] [id number]#1.00CD:127 [facility] Insurance Correspondence Off iceon 12-25-2022 Insurance Correspondence Office [id number]#1.00CD:12 7 Normal [facility] Fci Recordson 12-25 [facility] Records [id number]#1.00CD:12 7 [facility] Transfer Documentson 023 Transfer Documents [id number]#1.00CD:127 Normal [facility] CHEMISTRYOrdered By: Lab ROP User on 12-24-2022 Glucose [Mass/Vol] 102 mg/dL High 55 - 99 mg/dL FTM C POC Subsection Comment on above: Result Comment: Fausto CHAUDHARY POC Username IRINA JANE Invalid Interpretation Code [facility] POC Subsection Sodium [Moles/Vol] 125421082344 mmol/L Invalid Interpretation Code [facility] POC Subsection Sodium [Moles/Vol] 200058833 mmol/L Invalid Interpretation Code [facility] POC Subsection Glucose [Mass/Vol] 194 mg/dL High 55 - 99 mg/dL FTM C POC Subsection Comment on above: Result Comment: Fausto CHAUDHARY POC Username IRINA JANE Invalid Interpretation Code [facility] POC Subsection Sodium [Moles/Vol] 175744210874 mmol/L Invalid Interpretation Code [facility] POC Subsection Sodium [Moles/Vol] 058480257 mmol/L Invalid Interpretation Code [facility] POC Subsection Glucose [Mass/Vol] 130 mg/dL High 55 - 99 mg/dL FTM C POC Subsection Comment on above: Result Comment: Fausto CHAUDHARY POC UsernamANTOLIN Leyva Invalid Interpretation Code [facility] POC Subsection Sodium [Moles/Vol] 979078991784 mmol/L Invalid Interpretation Code [facility] POC Subsection Sodium [Moles/Vol] 086459486 mmol/L Invalid Interpretation Code [facility] POC Subsection Capillary Glucose POCon 11-30 Glucose [Mass/Vol] 102 mg/dL High 55-99 [facility] Comment on above: Result Comment: Fausto rubi RN/ Performed By: #### 2 [id number] ####[facility] [address] [place] [address] Glucose [Mass/Vol] 194 mg/dL High 55-99 [facility] Comment on above: Result Comment: Fausto CHAUDHARY Performed By: #### 2 [id number] ####[facility] [address] [place] [address] Glucose [Mass/Vol] 130 mg/dL High 55-99 [facility] Comment on above: Result Comment: Fausto CHAUDHARY Performed By: #### 2 [id number] ####[facility] [address] [place] [address] Discharge Note-Nursingon Discharge Note-Nursing Normal [facility] Inpatient Clinical Summaryon 12-24-2022 Inpatient Clinical Summary Normal [facility] Inpatient Patient Summaryon 12-24-2022 Inpatient Patient Summary Normal [facility] Insurance Correspondence Off iceon 12-24-2022 Insurance Correspondence Office [id number]#1.00CD:12 7 Normal [facility] Interdisciplinary Note - Hardeep e Manageron 12-24-2022 Interdisciplinary Note - 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 Normal [facility] Comment on above: Result Comment: Elec tronically Signed By: Radha Prabhakar\.br\Date and Time Signed: 12/24/22 15:54 EDT Progress Note-Physicianon Progress Note-Physician Normal [facility] Comment on above: Result Comment: Elec tronically Signed By: FALLON BANKS, Soni\.br\Date and Time Signed: 12/24/22 15:29 EDT Auto Diffon 12-23-2022 Basophils/100 WBC (Bld) 0.5 % Normal 0.0-2.0 [facility] Comment on above: Order Comment: Order Added by Discern Expert. Performed By: #### 2 123306, 1975381, 6473410, 4966377, 71184305, 0997605 ####[address] [place] [address] Basophils/Leukocytes Auto (Bld) [Pure # fraction] 0.0 E9/L Normal 0.0-0.2 [facility] Comment on above: Order Comment: Order Added by Discern Expert. Performed By: #### 2 144400, 1669355, 2793302, 5453507, 31041886, 2755110 ####[address] [place] [address] Eosinophils/100 WBC (Bld) 5.0 % Normal 0.0-8.0 [facility] Comment on above: Order Comment: Order Added by Discern Expert. Performed By: #### 2 036038, 0697207, 0913969, 6206510, 75196209, 2478471 ####[address] [address] Eosinophils/Leukocytes Auto (Bld) [Pure # fraction] 0.3 E9/L Normal 0.0-0.5 [facility] Comment on above: Order Comment: Order Added by Discern Expert. Performed By: #### 2 144937, 7390362, 4514268, 1385171, 45262451, 3294725 ####[address] [place] [address] Lymphocytes/100 WBC (Bld) 23.3 % Normal 14.0-50.0 [facility] Comment on above: Order Comment: Order Added by Discern Expert. Performed By: #### 2 905381, 2098112, 5160141, 5315891, 53492293, 4154842 ####[address] [place] [address] Lymphocytes/Leukocytes Auto (Bld) [Pure # fraction] 1.5 E9/L Normal 1.0-4.0 [facility] Comment on above: Order Comment: Order Added by Discern Expert. Performed By: #### 2 928166, 1598292, 8460883, 5351446, 60563347, 4330147 ####[facility] [address] [place] [address] Monocytes/100 WBC (Bld) 14.2 % High 4.0-14.0 [facility] Comment on above: Order Comment: Order Added by Discern Expert. Performed By: #### 2 147847, 4074741, 3172376, 4249232, 61410380, 1117413 ####[address] [place] [address] Monocytes/Leukocytes Auto (Bld) [Pure # fraction] 0.9 E9/L Normal 0.2-1.0 [facility] Comment on above: Order Comment: Order Added by Katherine Expert. Performed By: #### 2 251846, 8479441, 0010746, 6251542, 51160322, 5551356 ####[facility] [address] [place] [address] Neutrophils/100 WBC (Bld) 57.0 % Normal 36.0-75.0 [facility] Comment on above: Order Comment: Order Added by Discern Expert. Performed By: #### 2 179628, 0998932, 0046307, 8212000, 52878244, 7884190 ####[facility] [address] [place] [address] Neutrophils/Leukocytes Auto (Bld) [Pure # fraction] 3.6 E9/L Normal 2.0-7.5 [facility] Comment on above: Order Comment: Order Added by Katherine Expert. Performed By: #### 2 014862, 0816012, 6393251, 5586513, 32666392, 4441419 ####[facility] [address] [place] [address] BUNon 12-23-2022 Urea nitrogen [Mass/Vol] 15 mg/dL Normal 5-21 [facility] Comment on above: Performed By: #### 2 160434, 9625363, 6745707, 4862457, 61389788, 3724971 ####[facility] [address] [place] [address] C Woundon 12-23-2022 Wound Culture Normal [facility] Comment on above: Performed By: #### 2 332497 ####[address] [place] [address] Wound Culture Normal [facility] Comment on above: Performed By: #### 2 983478 ####[address] [place] [address] CBC w/ Auto Diffon Erythrocyte distribution width (RBC) [Ratio] 17.4 % High 10.9-14.2 [facility] Comment on above: Performed By: #### 2 270073, 5759707, 7917872, 9643537, 53500843, 5178637 ####[address] [place] [address] Hematocrit (Bld) [Volume fraction] 21.5 % Low 34.0-46.0 [facility] Comment on above: Performed By: #### 2 631040, 1877009, 9065911, 3465764, 79871293, 9003436 ####[address] [place] [address] Hemoglobin (Bld) [Mass/Vol] 7.1 g/dL Low 12.0-16.0 [facility] Comment on above: Performed By: #### 2 572974, 3377663, 3659449, 7531508, 08815026, 4232485 ####[address] [place] [address] MCH (RBC) [Entitic mass] 28.2 pg Normal 27.0-34.0 [facility] Comment on above: Performed By: #### 2 600895, 2259138, 8936563, 3109391, 81799161, 5738051 ####[address] MCHC (RBC) [Mass/Vol] 32.9 g/dL Normal 31.4-36.0 [facility] Comment on above: Performed By: #### 2 125243, 0424458, 4913886, 0502714, 35644817, 6593668 ####[address] MCV (RBC) [Entitic vol] 85.7 fL Normal 80.0-100.0 [facility] Comment on above: Performed By: #### 2 694028, 9436716, 9202015, 2849068, 74384393, 9854995 ####[address] Platelet mean volume (Bld) [Entitic vol] 7.7 fL Normal 6.4-10.8 [facility] Comment on above: Performed By: #### 2 429867, 2333792, 7567105, 5710466, 68900105, 0422027 ####[address] Platelets (Bld) [#/Vol] 316.0 E9/L Normal 150.0-500.0 [facility] Comment on above: Performed By: #### 2 253167, 8167791, 0292094, 0515776, 41191740, 4675855 ####[address] RBC (Bld) [#/Vol] 2.5 E12/L Low 4.3-5.9 [facility] Comment on above: Performed By: #### 2 304246, 1944753, 1746839, 7752763, 42745674, 6770793 ####[address] [address] WBC corrected for nucl RBC Auto (Bld) [#/Vol] 6.3 E9/L Normal 4.0-11.0 [facility] Comment on above: Performed By: #### 2 794767, 4059865, 3019158, 9758379, 94033657, 9991524 ####[facility] [address] [place] [address] CHEMISTRYOrdered By: SYSTEM SYSTEM on 12-23-2022 Anion gap [Moles/Vol] 1 mmol/L Low 6 - 16 mEq/L F [facility] Remisol Chloride [Moles/Vol] 119 mmol/L High 101 - 111 mmol/ L [facility] Remisol CO2 [Moles/Vol] 25 mmol/L Normal 21 - 31 mmol/L [facility] Remisol Creatinine [Mass/Vol] 0.7 mg/dL Normal 0.5 - 1.3 mg/d L [facility] Remisol GFR/1.73 sq M.predicted among non-blacks MDRD (S/P/Bld) [Vol rate/Area] 94 mL/min/1.73 m2 Normal >=59mL/min/1.[address] [facility] Chem S Comment on above: Interpretive Data: C hronic kidney disease could be indicated at eGFR's of less than 60 mL/min/1.73m2. Kidney failure is indicated at less than 15 mL/min/1.73m2. Potassium [Moles/Vol] 4.0 mmol/L Normal 3.5 - 5.3 mmol /L [facility] Remisol Sodium [Moles/Vol] 141 mmol/L Normal 135 - 145 mmol/L [facility] Remisol Urea nitrogen [Mass/Vol] 15 mg/dL Normal 5 - 21 mg/dL [facility] Remisol Capillary Glucose POCon 11-30 Glucose [Mass/Vol] 189 mg/dL High 55-99 [facility] Comment on above: Result Comment: Fausto CHAUDHARY Performed By: #### 2 [id number] ####[facility] [address] [place] [address] Glucose [Mass/Vol] 118 mg/dL High 55-99 [facility] Comment on above: Result Comment: Fausto CHAUDHARY Performed By: #### 2 78950671 ####[facility] [address] [place] [address] Glucose [Mass/Vol] 105 mg/dL High 55-99 [facility] Comment on above: Result Comment: Fausto CHAUDHARY Performed By: #### 2 29303573 ####[facility] [address] [place] [address] Glucose [Mass/Vol] 104 mg/dL High 55-99 [facility] Comment on above: Result Comment: Fausto CHAUDHARY Performed By: #### 2 [id number] ####[facility] [address] [place] [address] Consent for Anesthesiaon Consent for Anesthesia [id number]#1.00CD:12 7 Normal [facility] Consent for Blood Transfusio non 12-23-2022 Consent for Blood Transfusion [id number]#1.00CD:12 7 Normal [facility] Consent for Procedure/Surger yon 12-23-2022 Consent for Procedure/Surgery [id number]#1.00CD:12 7 Normal [facility] Consent for Treatmenton 11-30 Consent for Treatment [id number]#1.00CD:12 7 Normal [facility] Creatinineon 12-23-2022 Creatinine [Mass/Vol] 0.7 mg/dL Normal 0.5-1.3 [facility] Comment on above: Performed By: #### 2 034835, 1524623, 4158671, 2844584, 81829057, 5600590 ####[facility] [address] [place] [address] HEMATOLOGYOrdered By: SYSTEM SYSTEM on 12-23-2022 Basophils/100 WBC (Bld) 0.5 % Normal 0.0 - 2.0 % FT HemeAutoSS Basophils/Leukocytes Auto (Bld) [Pure # fraction] 0.0 E9/L Normal 0.0 - 0.2 E9/L [facility] HemeAutoSS Eosinophils/100 WBC (Bld) 5.0 % Normal [...] [Mass/Vol] 32.9 g/dL Normal 31.4 - 36.0 gm /dL [facility] HemeAutoSS MCV (RBC) [Entitic vol] 85.7 fL Normal 80.0 - 100.0 fL [facility] HemeAutoSS Platelet mean volume (Bld) [Entitic vol] 7.7 fL Normal 6.4 - 10.8 fL [facility] HemeAutoSS Platelets (Bld) [#/Vol] 316.0 E9/L Normal 150.0 - 500.0 E9/L [facility] HemeAutoSS RBC (Bld) [#/Vol] 2.5 E12/L Low 4.3 - 5.9 E12/L [facility] HemeAutoSS WBC corrected for nucl RBC Auto (Bld) [#/Vol] 6.3 E9/L Normal 4.0 - 11.0 E9/L [facility] HemeAutoSS Interdisciplinary Note - Hardeep e Manageron 12-23-2022 Interdisciplinary Note - 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 Normal [facility] Comment on above: Result Comment: Elec tronically Signed By: Kirstin Meyer\Date and Time Signed: 12/23/22 14:46 EDT IntraOperative Documentson 0 12-23-2022 IntraOperative Documents [id number]:12 7 Normal [facility] IntraOperative Documents [id number]:12 7 Normal [facility] Lyteson 12-23-2022 Anion gap [Moles/Vol] 1 mmol/L Low 6-16 [facility] Comment on above: Performed By: #### 2 254415, 0757987, 7665604, 2343180, 06898336, 0018068 ####[facility] [address] [place] [address] Chloride [Moles/Vol] 119 mmol/L High 101-111 [facility] Comment on above: Performed By: #### 2 094677, 9615609, 5148642, 9809778, 39254860, 2368199 ####[facility] [address] [place] [address] CO2 [Moles/Vol] 25 mmol/L Normal 21-31 [facility] Comment on above: Performed By: #### 2 436219, 7757007, 5200975, 8408245, 31117440, 3107670 ####[facility] [address] [place] [address] Potassium [Moles/Vol] 4.0 mmol/L Normal 3.5-5.3 [facility] Comment on above: Performed By: #### 2 800495, 4096906, 5504417, 1435056, 09351397, 4854111 ####[facility] [address] [place] [address] Sodium [Moles/Vol] 141 mmol/L Normal 135-145 [facility] Comment on above: Performed By: #### 2 214152, 0832654, 3613035, 7817684, 09768530, 8038125 ####[facility] [address] [place] [address] Main OR Intraoperative Recor don 12-23-2022 Main OR Intraoperative Record Normal [facility] Progress Note-Physicianon Progress Note-Physician Normal [facility] Comment on above: Result Comment: Elec tronically Signed By: Joaquim Rice DO\.br\Date and Time Signed: 12/23/22 19:04 EDT Progress Note-Physician Normal [facility] Comment on above: Result Comment: Elec tronically Signed By: Soni PADGETT MD\.br\Date and Time Signed: 12/23/22 10:01 EDT XR Chest Single Viewon 12-23 XR Chest Single View Normal [facility] eGFRon 12-23-2022 GFR/1.73 sq M.predicted among non-blacks MDRD (S/P/Bld) [Vol rate/Area] 94 mL/min/1.73 m2 Normal >=59 [facility] Comment on above: Order Comment: Order added by Discern Expert. Result Comment: [facility] Architect marquez kidney disease could be indicated at eGFR's of less than 60 mL/min/1.73m2. Kidney failure is indicated at less than 15 mL/min/1.73m2. Performed By: #### 2 828603, 2439506, 0589617, 7989621, 22715120, 6693915 ####[facility] [address] [place] [address] Auto Diffon 12-22-2022 Basophils/100 WBC (Bld) 0.5 % Normal 0.0-2.0 [facility] Comment on above: Order Comment: Order Added by Discern Expert. Performed By: #### 2 684755, 9308729, 4295491, 46649390, 2703901, 5547378 ####[facility] [address] [place] [address] Basophils/Leukocytes Auto (Bld) [Pure # fraction] 0.0 E9/L Normal 0.0-0.2 [facility] Comment on above: Order Comment: Order Added by Discern Expert. Performed By: #### 2 825750, 7037785, 1434070, 31035384, 5750436, 0526833 ####[address] [place] [address] Eosinophils/100 WBC (Bld) 1.1 % Normal 0.0-8.0 [facility] Comment on above: Order Comment: Order Added by Discern Expert. Performed By: #### 2 399626, 3171804, 5389086, 65599644, 2236884, 3571279 ####[address] [address] Eosinophils/Leukocytes Auto (Bld) [Pure # fraction] 0.1 E9/L Normal 0.0-0.5 [facility] Comment on above: Order Comment: Order Added by Discern Expert. Performed By: #### 2 905708, 4355567, 5730831, 72721455, 5022728, 0761740 ####[address] [address] Lymphocytes/100 WBC (Bld) 20.4 % Normal 14.0-50.0 [facility] Comment on above: Order Comment: Order Added by Discern Expert. Performed By: #### 2 904494, 7135460, 7630476, 64009462, 7693912, 3564974 ####[address] [place] [address] Lymphocytes/Leukocytes Auto (Bld) [Pure # fraction] 1.5 E9/L Normal 1.0-4.0 [facility] Comment on above: Order Comment: Order Added by Discern Expert. Performed By: #### 2 070260, 7788474, 2165103, 81601532, 9952932, 3325004 ####[facility] [address] [place] [address] Monocytes/100 WBC (Bld) 11.4 % Normal 4.0-14.0 [facility] Comment on above: Order Comment: Order Added by Discern Expert. Performed By: #### 2 765257, 2506173, 8621157, 93172794, 9761010, 8617399 ####[facility] [address] [place] [address] Monocytes/Leukocytes Auto (Bld) [Pure # fraction] 0.9 E9/L Normal 0.2-1.0 [facility] Comment on above: Order Comment: Order Added by Katherine Expert. Performed By: #### 2 454000, 8151519, 7848026, 55977682, 2847283, 1085383 ####[address] [place] [address] Neutrophils/100 WBC (Bld) 66.6 % Normal 36.0-75.0 [facility] Comment on above: Order Comment: Order Added by Discern Expert. Performed By: #### 2 765120, 5806387, 9913454, 24340301, 4812249, 7196320 ####[address] [place] [address] Neutrophils/Leukocytes Auto (Bld) [Pure # fraction] 5.0 E9/L Normal 2.0-7.5 [facility] Comment on above: Order Comment: Order Added by Discern Expert. Performed By: #### 2 266051, 5879319, 0546145, 06695866, 9732684, 8530333 ####[facility] [address] [place] [address] BUNon 12-22-2022 Urea nitrogen [Mass/Vol] 21 mg/dL Normal 5-21 [facility] Comment on above: Performed By: #### 2 183160, 9334496, 4733582, 85568216, 1528647, 7343452 ####[facility] [address] [place] [address] CBC w/ Auto Diffon 3 Erythrocyte distribution width (RBC) [Ratio] 17.5 % High 10.9-14.2 [facility] Comment on above: Performed By: #### 2 370203, 5434267, 4685550, 94528403, 1149763, 8878154 ####[facility] [address] [place] [address] Hematocrit (Bld) [Volume fraction] 21.8 % Low 34.0-46.0 [facility] Comment on above: Performed By: #### 2 378294, 4599678, 4142493, 04285025, 4290793, 8441165 ####[facility] [address] [place] [address] Hemoglobin (Bld) [Mass/Vol] 7.2 g/dL Low 12.0-16.0 [facility] Comment on above: Performed By: #### 2 474756, 2005044, 2138680, 54575123, 9191036, 0968642 ####[facility] [address] [place] [address] MCH (RBC) [Entitic mass] 28.2 pg Normal 27.0-34.0 [facility] Comment on above: Performed By: #### 2 373387, 2884720, 1396454, 54266883, 3473821, 3451259 ####[address] [address] MCHC (RBC) [Mass/Vol] 32.9 g/dL Normal 31.4-36.0 [facility] Comment on above: Performed By: #### 2 031200, 1587918, 2392645, 07706542, 0708323, 2520621 ####[address] [address] MCV (RBC) [Entitic vol] 85.7 fL Normal 80.0-100.0 [facility] Comment on above: Performed By: #### 2 083431, 0808221, 1484495, 61491885, 6866516, 9449079 ####[facility] [address] [place] [address] Platelet mean volume (Bld) [Entitic vol] 7.8 fL Normal 6.4-10.8 [facility] Comment on above: Performed By: #### 2 971793, 4476654, 0412554, 46893240, 6318032, 1986750 ####[facility] [address] [place] [address] Platelets (Bld) [#/Vol] 337.0 E9/L Normal 150.0-500.0 [facility] Comment on above: Performed By: #### 2 599680, 0691202, 8383737, 46693295, 7389632, 7180803 ####[facility] [address] [place] [address] RBC (Bld) [#/Vol] 2.5 E12/L Low 4.3-5.9 [facility] Comment on above: Performed By: #### 2 550117, 1685571, 1334928, 04245760, 4464777, 1142953 ####[facility] [address] [place] [address] WBC corrected for nucl RBC Auto (Bld) [#/Vol] 7.4 E9/L Normal 4.0-11.0 [facility] Comment on above: Performed By: #### 2 433461, 2584170, 5498652, 48865590, 5525827, 6987610 ####[facility] [address] [place] [address] CHEMISTRYOrdered By: SYSTEM SYSTEM on 12-22-2022 Anion gap [Moles/Vol] 5 mmol/L Low 6 - 16 mEq/L [facility] Remisol Chloride [Moles/Vol] 115 mmol/L High 101 - 111 mmol/ L [facility] Remisol CO2 [Moles/Vol] 23 mmol/L Normal 21 - 31 mmol/L [facility] Remisol Creatinine [Mass/Vol] 0.9 mg/dL Normal 0.5 - 1.3 mg/d L [facility] Remisol GFR/1.73 sq M.predicted among non-blacks MDRD (S/P/Bld) [Vol rate/Area] 70 mL/min/1.73 m2 Normal >=59mL/min/1.[address] [facility] Chem S Comment on above: Interpretive Data: C hronic kidney disease could be indicated at eGFR's of less than 60 mL/min/1.73m2. Kidney failure is indicated at less than 15 mL/min/1.73m2. Potassium [Moles/Vol] 3.7 mmol/L Normal 3.5 - 5.3 mmol /L [facility] Remisol Sodium [Moles/Vol] 139 mmol/L Normal 135 - 145 mmol/L [facility] Remisol Urea nitrogen [Mass/Vol] 21 mg/dL Normal 5 - 21 mg/dL [facility] Remisol Capillary Glucose POCon 11-30 Glucose [Mass/Vol] 123 mg/dL High 55-99 [facility] Comment on above: Result Comment: Lucille ronak Meter Performed By: #### 2 [id number] ####[facility] [address] [place] [address] Glucose [Mass/Vol] 124 mg/dL High 55-99 [facility] Comment on above: Result Comment: Fausto CHAUDHARY Performed By: #### 2 32951814 ####[facility] [address] [place] [address] Glucose [Mass/Vol] 126 mg/dL High 55-99 [facility] Comment on above: Result Comment: Fausto CHAUDHARY Performed By: #### 2 08644084 ####[facility] [address] [place] [address] Glucose [Mass/Vol] 153 mg/dL High 55-99 [facility] Comment on above: Performed By: #### 2 30062439 ####[facility] [address] [place] [address] Glucose [Mass/Vol] 294 mg/dL High 55-99 [facility] Comment on above: Result Comment: Fausto CHAUDHARY Performed By: #### 2 04090776 ####[facility] [address] [place] [address] Creatinineon 12-22-2022 Creatinine [Mass/Vol] 0.9 mg/dL Normal 0.5-1.3 [facility] Comment on above: Performed By: #### 2 362311, 8103180, 9960499, 75801898, 4502889, 8883786 ####[facility] [address] [place] [address] HEMATOLOGYOrdered By: SYSTEM SYSTEM on 12-22-2022 Basophils/100 [...] [Mass/Vol] 32.9 g/dL Normal 31.4 - 36.0 gm /dL [facility] HemeAutoSS MCV (RBC) [Entitic vol] 85.7 fL Normal 80.0 - 100.0 fL [facility] HemeAutoSS Platelet mean volume (Bld) [Entitic vol] 7.8 fL Normal 6.4 - 10.[address] [facility] HemeAutoSS Platelets (Bld) [#/Vol] 337.0 E9/L Normal 150.0 - 500.0 E9/L [facility] HemeAutoSS RBC (Bld) [#/Vol] 2.5 E12/L Low 4.3 - 5.9 E12/L [facility] HemeAutoSS WBC corrected for nucl RBC Auto (Bld) [#/Vol] 7.4 E9/L Normal 4.0 - 11.0 E9/L [facility] HemeAutoSS Lyteson 12-22-2022 Anion gap [Moles/Vol] 5 mmol/L Low 6-16 [facility] Comment on above: Performed By: #### 2 140853, 7218395, 5737916, 28438868, 1864981, 0661549 ####[facility] [address] [place] [address] Chloride [Moles/Vol] 115 mmol/L High 101-111 [facility] Comment on above: Performed By: #### 2 641982, 3703783, 2370310, 72554239, 1937362, 3012224 ####[facility] [address] [place] [address] CO2 [Moles/Vol] 23 mmol/L Normal 21-31 [facility] Comment on above: Performed By: #### 2 818017, 2668004, 0003377, 14194478, 4439668, 3253584 ####[facility] [address] [place] [address] Potassium [Moles/Vol] 3.7 mmol/L Normal 3.5-5.3 [facility] Comment on above: Performed By: #### 2 707843, 3463076, 7587795, 95139212, 0786973, 4338683 ####[facility] [address] [place] [address] Sodium [Moles/Vol] 139 mmol/L Normal 135-145 [facility] Comment on above: Performed By: #### 2 585335, 9055986, 2382026, 01432293, 2933570, 3355478 ####[facility] [address] [place] [address] Progress Note-Physicianon Progress Note-Physician Normal [facility] Comment on above: Result Comment: Elec tronically Signed By: Joaquim Rice DO\.br\Date and Time Signed: 12/22/22 20:14 EDT Progress Note-Physician Normal [facility] Comment on above: Result Comment: Elec tronically Signed By: Cordell Grossman DO\.br\Date and Time Signed: 12/22/22 15:53 EDT eGFRon 12-22-2022 GFR/1.73 sq M.predicted among non-blacks MDRD (S/P/Bld) [Vol rate/Area] 70 mL/min/1.73 m2 Normal >=59 [facility] Comment on above: Order Comment: Order added by Discern Expert. Result Comment: [facility]c Architect marquez kidney disease could be indicated at eGFR's of less than 60 mL/min/1.73m2. Kidney failure is indicated at less than 15 mL/min/1.73m2. Performed By: #### 2 092771, 5006838, 8675317, 03506950, 4112812, 2616105 ####[facility] [address] [place] [address] Auto Diffon 12-21-2022 Basophils/100 WBC (Bld) 0.1 % Normal 0.0-2.0 [facility] Comment on above: Order Comment: Order Added by Discern Expert. Performed By: #### 2 526529, 9315574, 56832469, 2492444, 1645099, 1586111 ####[address] [address] Basophils/Leukocytes Auto (Bld) [Pure # fraction] 0.0 E9/L Normal 0.0-0.2 [facility] Comment on above: Order Comment: Order Added by Discern Expert. Performed By: #### 2 320359, 4438774, 80528498, 8731456, 9220769, 8925092 ####[address] [place] [address] Eosinophils/100 WBC (Bld) 0.0 % Normal 0.0-8.0 [facility] Comment on above: Order Comment: Order Added by Discern Expert. Performed By: #### 2 147458, 6721174, 37799615, 8960193, 1278025, 0019448 ####[address] [address] Eosinophils/Leukocytes Auto (Bld) [Pure # fraction] 0.0 E9/L Normal 0.0-0.5 [facility] Comment on above: Order Comment: Order Added by Discern Expert. Performed By: #### 2 679403, 9968195, 82077964, 2911092, 4530767, 1684589 ####[address] [address] Lymphocytes/100 WBC (Bld) 6.5 % Low 14.0-50.0 [facility] Comment on above: Order Comment: Order Added by Discern Expert. Performed By: #### 2 701434, 2037692, 39788896, 0477862, 2831068, 5988057 ####[address] [place] [address] Lymphocytes/Leukocytes Auto (Bld) [Pure # fraction] 0.4 E9/L Low 1.0-4.0 [facility] Comment on above: Order Comment: Order Added by Discern Expert. Performed By: #### 2 294262, 7575453, 77490888, 4474800, 3514637, 7146567 ####[facility] [address] [place] [address] Monocytes/100 WBC (Bld) 8.7 % Normal 4.0-14.0 [facility] Comment on above: Order Comment: Order Added by Discern Expert. Performed By: #### 2 367398, 0125763, 67853704, 7732336, 0464309, 6382772 ####[address] [place] [address] Monocytes/Leukocytes Auto (Bld) [Pure # fraction] 0.6 E9/L Normal 0.2-1.0 [facility] Comment on above: Order Comment: Order Added by Discern Expert. Performed By: #### 2 260483, 7006514, 76021843, 3030951, 1234171, 0539068 ####[address] [address] Neutrophils/100 WBC (Bld) 84.7 % High 36.0-75.0 [facility] Comment on above: Order Comment: Order Added by Discern Expert. Performed By: #### 2 914607, 7563870, 88039792, 8060055, 7475632, 4348980 ####[address] [place] [address] Neutrophils/Leukocytes Auto (Bld) [Pure # fraction] 5.8 E9/L Normal 2.0-7.5 [facility] Comment on above: Order Comment: Order Added by Discern Expert. Performed By: #### 2 457482, 2656201, 71597150, 7871773, 7104878, 9686726 ####[address] [place] [address] BUNon 12-21-2022 Urea nitrogen [Mass/Vol] 22 mg/dL High 5-21 [facility] Comment on above: Performed By: #### 2 395543, 5069589, 26248611, 7404161, 4551631, 9683293 ####[address] [address] CBC w/ Auto Diffon 3 Erythrocyte distribution width (RBC) [Ratio] 17.9 % High 10.9-14.2 [facility] Comment on above: Performed By: #### 2 811391, 3932052, 49120221, 4794448, 1800023, 9971390 ####[facility] [address] [place] [address] Hematocrit (Bld) [Volume fraction] 23.9 % Low 34.0-46.0 [facility] Comment on above: Performed By: #### 2 937683, 5399850, 18426436, 1270473, 5745323, 2226886 ####[facility] [address] Hemoglobin (Bld) [Mass/Vol] 7.7 g/dL Low 12.0-16.0 [facility] Comment on above: Performed By: #### 2 834985, 6891654, 94606668, 8436768, 7938238, 7569619 ####[facility] [address] [place] [address] MCH (RBC) [Entitic mass] 28.2 pg Normal 27.0-34.0 [facility] Comment on above: Performed By: #### 2 736267, 9206239, 22226478, 2881919, 5532746, 6631383 ####[address] [address] MCHC (RBC) [Mass/Vol] 32.3 g/dL Normal 31.4-36.0 [facility] Comment on above: Performed By: #### 2 675106, 9612007, 21002094, 3127999, 1706846, 6938120 ####[address] [place] [address] MCV (RBC) [Entitic vol] 87.1 fL Normal 80.0-100.0 [facility] Comment on above: Performed By: #### 2 328122, 3432176, 67031536, 3119143, 3349598, 1192524 ####[facility] [address] [place] [address] Platelet mean volume (Bld) [Entitic vol] 8.1 fL Normal 6.4-10.8 [facility] Comment on above: Performed By: #### 2 476420, 3219045, 14957125, 6315756, 1500598, 8343841 ####[facility] [address] [place] [address] Platelets (Bld) [#/Vol] 320.0 E9/L Normal 150.0-500.0 [facility] Comment on above: Performed By: #### 2 846726, 3565104, 58873706, 6927835, 9386387, 9604282 ####[address] [place] [address] RBC (Bld) [#/Vol] 2.7 E12/L Low 4.3-5.9 [facility] Comment on above: Performed By: #### 2 068273, 4875808, 19095824, 3286711, 0287335, 1160569 ####[facility] [address] [place] [address] WBC corrected for nucl RBC Auto (Bld) [#/Vol] 6.8 E9/L Normal 4.0-11.0 [facility] Comment on above: Performed By: #### 2 535850, 0502992, 48843225, 9116809, 1531522, 9478751 ####[facility] [address] [place] [address] CHEMISTRYOrdered By: SYSTEM SYSTEM on 12-21-2022 Anion gap [Moles/Vol] 7 mmol/L Normal 6 - 16 mEq/L [facility] Remisol Chloride [Moles/Vol] 112 mmol/L High 101 - 111 mmol/ L [facility] Remisol CO2 [Moles/Vol] 24 mmol/L Normal 21 - 31 mmol/L [facility] Remisol Creatinine [Mass/Vol] 1.1 mg/dL Normal 0.5 - 1.3 mg/d L [facility] Remisol GFR/1.73 sq M.predicted among non-blacks MDRD (S/P/Bld) [Vol rate/Area] 55 mL/min/1.73 m2 Low >=59mL/min/1.[address] [facility] Chem S Comment on above: Interpretive Data: C hronic kidney disease could be indicated at eGFR's of less than 60 mL/min/1.73m2. Kidney failure is indicated at less than 15 mL/min/1.73m2. Potassium [Moles/Vol] 5.2 mmol/L Normal 3.5 - 5.3 mmol /L [facility] Remisol Sodium [Moles/Vol] 138 mmol/L Normal 135 - 145 mmol/L [facility] Remisol Urea nitrogen [Mass/Vol] 22 mg/dL High 5 - 21 mg/dL [facility] Remisol Capillary Glucose POCon 11-30 Glucose [Mass/Vol] 288 mg/dL High 55-99 [facility] Comment on above: Performed By: #### 2 29981253 ####[facility] [address] [place] [address] Glucose [Mass/Vol] 323 mg/dL High 55-99 [facility] Comment on above: Result Comment: Fausto rubi RN/ Performed By: #### 2 90898274 ####[facility] [address] [place] [address] Glucose [Mass/Vol] 353 mg/dL High 55-99 [facility] Comment on above: Performed By: #### 2 79454544 ####[facility] [address] [place] [address] Glucose [Mass/Vol] 281 mg/dL High 55-99 [facility] Comment on above: Result Comment: Fausto CHAUDHARY Performed By: #### 2 69402766 ####[facility] [address] [place] [address] Creatinineon 12-21-2022 Creatinine [Mass/Vol] 1.1 mg/dL Normal 0.5-1.3 [facility] Comment on above: Performed By: #### 2 038806, 1419952, 49735190, 2592239, 9029836, 0221242 ####[facility] [address] [place] [address] HEMATOLOGYOrdered By: SYSTEM SYSTEM on 12-21-2022 Basophils/100 [...] [Mass/Vol] 32.3 g/dL Normal 31.4 - 36.0 gm /dL [facility] HemeAutoSS MCV (RBC) [Entitic vol] 87.1 fL Normal 80.0 - 100.[address] [facility] HemeAutoSS Platelet mean volume (Bld) [Entitic vol] 8.1 fL Normal 6.4 - 10.[address] [facility] HemeAutoSS Platelets (Bld) [#/Vol] 320.0 E9/L Normal 150.0 - 500.0 E9/L [facility] HemeAutoSS RBC (Bld) [#/Vol] 2.7 E12/L Low 4.3 - 5.9 E12/L [facility] HemeAutoSS WBC corrected for nucl RBC Auto (Bld) [#/Vol] 6.8 E9/L Normal 4.0 - 11.0 E9/L [facility] HemeAutoSS Interdisciplinary Note - Timo n 12-21-2022 Interdisciplinary Note - OT Normal [facility] Interdisciplinary Note - PTo n 12-21-2022 Interdisciplinary Note - PT Normal [facility] Lyteson 12-21-2022 Anion gap [Moles/Vol] 7 mmol/L Normal 6-16 [facility] Comment on above: Performed By: #### 2 816006, 2654719, 80872023, 6132879, 6135111, 4707298 ####[facility] [address] [place] [address] Chloride [Moles/Vol] 112 mmol/L High 101-111 [facility] Comment on above: Performed By: #### 2 053192, 4311930, 39177151, 7151662, 0765373, 4548581 ####[facility] [address] [place] [address] CO2 [Moles/Vol] 24 mmol/L Normal 21-31 [facility] Comment on above: Performed By: #### 2 027609, 3937319, 81172810, 8026032, 6467202, 8306520 ####[facility] [address] [place] [address] Potassium [Moles/Vol] 5.2 mmol/L Normal 3.5-5.3 [facility] Comment on above: Performed By: #### 2 693709, 1389963, 07350826, 5670955, 6315476, 0357048 ####[facility] [address] [place] [address] Sodium [Moles/Vol] 138 mmol/L Normal 135-145 [facility] Comment on above: Performed By: #### 2 841267, 6157251, 98440927, 3826374, 6994552, 8638468 ####[facility] [address] [place] [address] Operative Reporton Operative Report Normal [facility] Comment on above: Result Comment: Elec tronically Signed By: Joaquim Rice DO\.br\Date and Time Signed: 12/21/22 14:02 EDT Progress Note-Physicianon Progress Note-Physician Normal [facility] Comment on above: Result Comment: Elec tronically Signed By: MD Martinez Ahmad F\.br\Date and Time Signed: 12/21/22 16:59 EDT Progress Note-Physician Normal [facility] Comment on above: Result Comment: Elec tronically Signed By: MD Martinez Ahmad F\.br\Date and Time Signed: 12/21/22 16:52 EDT Progress Note-Physician [facility] Comment on above: Result Comment: Elec tronically Signed By: Joaquim Rice DO\.br\Date and Time Signed: 12/21/22 14:41 EDT Progress Note-Physician Normal [facility] Comment on above: Result Comment: Elec tronically Signed By: Cordell Grossman DO.br\Date and Time Signed: 12/21/22 11:13 EDT eGFRon 12-21-2022 GFR/1.73 sq M.predicted among non-blacks MDRD (S/P/Bld) [Vol rate/Area] 55 mL/min/1.73 m2 Low >=59 [facility] Comment on above: Order Comment: Order added by Discern Expert. Result Comment: [facility] [employer] marquez kidney disease could be indicated at eGFR's of less than 60 mL/min/1.73m2. Kidney failure is indicated at less than 15 mL/min/1.73m2. Performed By: #### 2 [id number] ####[address] [id number] .Manual Abson 12-20-2022 Basophils/Leukocytes Manual cnt (Bld) [Pure # fraction] 0.0 E9/L Normal 0.0-0.2 [facility] Comment on above: Performed By: #### 2 [id number], [id number], [id number] ####[address] [address] Eosinophils/Leukocytes Manual cnt (Bld) [Pure # fraction] 0.1 E9/L Normal 0.0-0.5 [facility] Comment on above: Performed By: #### 2 [id number], [id number], [id number] ####[address] [address] Lymphocytes/Leukocytes Manual cnt (Bld) [Pure # fraction] 1.0 E9/L Normal 1.0-4.0 [facility] Comment on above: Performed By: #### 2 033316, 67952285, 73292368, 0056575, 80436572, 4894638, 1107517 ####[address] [address] Monocytes/Leukocytes Manual cnt (Bld) [Pure # fraction] 0.5 E9/L Normal 0.2-1.0 [facility] Comment on above: Performed By: #### 2 054116, 90155206, 03070236, 7487498, 79803737, 8609122, 3592399 ####[address] [address] Neutrophils/Leukocytes Auto (Bld) [Pure # fraction] 4.2 E9/L Normal 2.0-7.5 [facility] Comment on above: Performed By: #### 2 489020, 00541919, 29742801, 0918710, 42348289, 0534711, 2549848 ####[facility] [address] [place] [address] ABO/Rhon 12-20-2022 ABO/Rh Positive Invalid Interpretation Code [facility] Comment on above: Performed By: #### 1 4635090, 90002821, 40547325, 1501149 ####[facility] [address] [place] [address] ABO/Rh History Checkon 12-20 ABO/Rh History Check Verified Hx Blood Type Normal [facility] Comment on above: Performed By: #### 1 8293494, 34374974, 16555198, 8126933 ####[facility] [address] [place] [address] ABSCon 12-20-2022 ABSC Gel Interp Negative Normal [facility] Comment on above: Performed By: #### 1 4870206, 90525181, 42768359, 1751303 ####[facility] [address] [place] [address] Auto Diffon 12-20-2022 Basophils/100 WBC (Bld) 0.1 % Normal 0.0-2.0 [facility] Comment on above: Order Comment: Order Added by Discern Expert. Performed By: #### 2 019046, 48168538, 8319343, 7172874, 9075044 ####[facility] [address] [place] [address] Basophils/Leukocytes Auto (Bld) [Pure # fraction] 0.0 E9/L Normal 0.0-0.2 [facility] Comment on above: Order Comment: Order Added by Discern Expert. Performed By: #### 2 093998, 58672107, 9485759, 2823039, 2723728 ####[facility] [address] [place] [address] Eosinophils/100 WBC (Bld) 0.2 % Normal 0.0-8.0 [facility] Comment on above: Order Comment: Order Added by Discern Expert. Performed By: #### 2 391175, 67357941, 8404281, 5344014, 7384473 ####[address] [place] [address] Eosinophils/Leukocytes Auto (Bld) [Pure # fraction] 0.0 E9/L Normal 0.0-0.5 [facility] Comment on above: Order Comment: Order Added by Discern Expert. Performed By: #### 2 172115, 99748204, 3980298, 4080574, 3370035 ####[address] [address] Lymphocytes/100 WBC (Bld) 3.8 % Low 14.0-50.0 [facility] Comment on above: Order Comment: Order Added by Discern Expert. Performed By: #### 2 245216, 61661263, 6716912, 6499856, 2254752 ####[address] [address] Lymphocytes/Leukocytes Auto (Bld) [Pure # fraction] 0.4 E9/L Low 1.0-4.0 [facility] Comment on above: Order Comment: Order Added by Discern Expert. Performed By: #### 2 515950, 01973465, 3126038, 5655791, 5901059 ####[address] [address] Monocytes/100 WBC (Bld) 6.3 % Normal 4.0-14.0 [facility] Comment on above: Order Comment: Order Added by Discern Expert. Performed By: #### 2 803139, 49600157, 2193705, 3530069, 7387258 ####[address] [address] Monocytes/Leukocytes Auto (Bld) [Pure # fraction] 0.6 E9/L Normal 0.2-1.0 [facility] Comment on above: Order Comment: Order Added by Discern Expert. Performed By: #### 2 992873, 93788168, 9193664, 3497700, 3921924 ####[facility] [address] [place] [address] Neutrophils/100 WBC (Bld) 89.6 % High 36.0-75.0 [facility] Comment on above: Order Comment: Order Added by Discern Expert. Performed By: #### 2 713544, 37462972, 3744944, 6654803, 8152571 ####[facility] [address] [place] [address] Neutrophils/Leukocytes Auto (Bld) [Pure # fraction] 8.7 E9/L High 2.0-7.5 [facility] Comment on above: Order Comment: Order Added by Discern Expert. Performed By: #### 2 091864, 52299404, 7110640, 2673899, 4254942 ####[address] [place] [address] BLOOD BANKOrdered By: Kirstin King on 12-20-2022 ABO/Rh Interp Positive Invalid Interpretation Code [facility] BB Subsection ABSC Gel Interp Negative (12/20/22 12:15 PM) Normal [facility] BB Subsection BMPon 12-20-2022 Anion gap [Moles/Vol] 10 mmol/L Normal 6-16 [facility] Comment on above: Performed By: #### 2 145816, 24127457, 8273655, 6219168, 2214484 ####[address] [place] [address] Calcium [Mass/Vol] 8.4 mg/dL Low 8.9-11.1 [facility] Comment on above: Performed By: #### 2 335165, 96656240, 9366723, 9435196, 5437169 ####[facility] [address] [place] [address] Chloride [Moles/Vol] 109 mmol/L Normal 101-111 [facility] Comment on above: Performed By: #### 2 678821, 49356290, 5415804, 8454813, 1753209 ####[facility] [address] [place] [address] CO2 [Moles/Vol] 23 mmol/L Normal 21-31 [facility] Comment on above: Performed By: #### 2 030629, 02517305, 7052986, 9059235, 5769233 ####[facility] [address] [place] [address] Creatinine [Mass/Vol] 0.7 mg/dL Normal 0.5-1.3 [facility] Comment on above: Performed By: #### 2 517939, 24742067, 0636970, 1518911, 2964582 ####[facility] [address] [place] [address] Glucose [Mass/Vol] 242 mg/dL High 55-199 [facility] Comment on above: Result Comment: If t his glucose result represents a fasting glucose, interpretation should refer to the following reference range: 55-99 mg/dL Performed By: #### 2 923012, 09081716, 2495556, 8597075, 3184379 ####[facility] [address] [facility] [place] [address] Potassium [Moles/Vol] 4.7 mmol/L Normal 3.5-5.3 [facility] Comment on above: Performed By: #### 2 584310, 20062120, 2045615, 2958699, 8660921 ####[facility] [address] [place] [address] Sodium [Moles/Vol] 137 mmol/L Normal 135-145 [facility] Comment on above: Performed By: #### 2 377302, 53303465, 8449959, 6154610, 1404520 ####[facility] [address] [place] [address] Urea nitrogen [Mass/Vol] 12 mg/dL Normal 5-21 [facility] Comment on above: Performed By: #### 2 846642, 47386726, 9038549, 8081541, 8153524 ####[facility] [address] [place] [address] Urea nitrogen/Creatinine [Mass ratio] 17 No Units Normal 10-20 [facility] Comment on above: Performed By: #### 2 110574, 28908007, 0483710, 7173993, 2642697 ####[facility] [address] [place] [address] Anion gap [Moles/Vol] 7 mmol/L Normal 6-16 [facility] Comment on above: Performed By: #### 2 513860, 66255806, 05895507, 3749273, 62683091, 5491990, 9463653 ####[facility] [address] [place] [address] Calcium [Mass/Vol] 8.4 mg/dL Low 8.9-11.1 [facility] Comment on above: Performed By: #### 2 648160, 04098407, 85577078, 2645916, 18258485, 2079784, 4815714 ####[facility] [address] [place] [facility] [place] [address] Chloride [Moles/Vol] 112 mmol/L High 101-111 Fish [facility] Comment on above: Performed By: #### 2 832426, 49988674, 86872362, 4259432, 62219920, 8338480, 3509001 ####[facility] [address] [place] [facility] [place] [address] CO2 [Moles/Vol] 24 mmol/L Normal 21-31 [facility] Comment on above: Performed By: #### 2 624448, 93884289, 70128903, 8526666, 90005262, 0067248, 9589498 ####[facility] [address] [place] [address] Creatinine [Mass/Vol] 0.7 mg/dL Normal 0.5-1.3 [facility] Comment on above: Performed By: #### 2 929899, 91933936, 66362328, 4913198, 30236872, 9982895, 2629125 ####[facility] [address] [place] [address] Glucose [Mass/Vol] 166 mg/dL Normal 55-199 [facility] Comment on above: Result Comment: If t his glucose result represents a fasting glucose, interpretation should refer to the following reference range: 55-99 mg/dL Performed By: #### 2 696978, 38078277, 96231735, 1576777, 72488554, 8256888, 1677681 ####[facility] [address] [place] [address] Potassium [Moles/Vol] 3.9 mmol/L Normal 3.5-5.3 [facility] Comment on above: Performed By: #### 2 828258, 79311913, 85749317, 0644654, 97211646, 1275396, 5861414 ####[facility] [address] [place] [address] Sodium [Moles/Vol] 139 mmol/L Normal 135-145 [facility] Comment on above: Performed By: #### 2 208298, 94588770, 51006631, 9249836, 53711141, 0007241, 0171966 ####[facility] [address] [place] [address] Urea nitrogen [Mass/Vol] 14 mg/dL Normal 5-21 [facility] Comment on above: Performed By: #### 2 613923, 51454277, 74627524, 4421019, 50520758, 5724074, 4533646 ####[facility] [address] [place] [address] Urea nitrogen/Creatinine [Mass ratio] 20 No Units Normal 10-20 [facility] Comment on above: Performed By: #### 2 601125, 18362166, 78717344, 7122811, 05718597, 3328001, 0328603 ####[facility] [address] [place] [address] Blood Bank ID#on 12-20-2022 BBID# [id number] Invalid Interpretation Code [facility] Comment on above: Performed By: #### 1 2653351, 29701610, 64531595, 7555061 ####[facility] [address] [place] [address] CBC w/ Auto Diffon Erythrocyte distribution width (RBC) [Ratio] 17.7 % High 10.9-14.2 [facility] Comment on above: Performed By: #### 2 150649, 80113844, 0467015, 7015019, 1894623 ####[address] [place] [address] Hematocrit (Bld) [Volume fraction] 26.3 % Low 34.0-46.0 [facility] Comment on above: Performed By: #### 2 882176, 85573012, 6474592, 7720484, 2616840 ####[address] [address] Hemoglobin (Bld) [Mass/Vol] 8.5 g/dL Low 12.0-16.0 [facility] Comment on above: Performed By: #### 2 909128, 95861315, 1146952, 3636604, 3688984 ####[address] [address] MCH (RBC) [Entitic mass] 28.1 pg Normal 27.0-34.0 [facility] Comment on above: Performed By: #### 2 528977, 86693569, 3372966, 8908133, 3153896 ####[facility] [address] [place] [address] MCHC (RBC) [Mass/Vol] 32.5 g/dL Normal 31.4-36.0 [facility] Comment on above: Performed By: #### 2 133910, 94018468, 7865978, 9306328, 8773010 ####[address] [address] MCV (RBC) [Entitic vol] 86.4 fL Normal 80.0-100.0 [facility] Comment on above: Performed By: #### 2 549558, 00046652, 2033075, 6307140, 3976572 ####[address] [place] [address] Platelet mean volume (Bld) [Entitic vol] 7.4 fL Normal 6.4-10.8 [facility] Comment on above: Performed By: #### 2 988650, 23248671, 3659054, 5942281, 2431377 ####[address] [address] Platelets (Bld) [#/Vol] 362.0 E9/L Normal 150.0-500.0 [facility] Comment on above: Performed By: #### 2 118121, 03695186, 3157228, 3820166, 9968751 ####[address] RBC (Bld) [#/Vol] 3.0 E12/L Low 4.3-5.9 [facility] Comment on above: Performed By: #### 2 186982, 04437843, 9668104, 7446164, 4668449 ####[address] [address] WBC corrected for nucl RBC Auto (Bld) [#/Vol] 9.8 E9/L Normal 4.0-11.0 [facility] Comment on above: Performed By: #### 2 889783, 72123842, 0018244, 3759127, 2433838 ####[address] [address] Erythrocyte distribution width (RBC) [Ratio] 14.9 % High 10.9-14.2 [facility] Comment on above: Performed By: #### 2 128341, 79533387, 97628545, 4270754, 75839274, 2223354, 7414690 ####[address] [place] [address] Hematocrit (Bld) [Volume fraction] 22.1 % Low 34.0-46.0 [facility] Comment on above: Performed By: #### 2 701449, 81805106, 90439061, 6322307, 43316017, 7074449, 6039864 ####[facility] [address] [place], [place] [address] Hemoglobin (Bld) [Mass/Vol] 7.5 g/dL Low 12.0-16.0 [facility] Comment on above: Performed By: #### 2 523956, 51751976, 10787029, 0204967, 99678401, 2371060, 4072774 ####[facility] [address] [place], [place] [address] MCH (RBC) [Entitic mass] 29.7 pg Normal 27.0-34.0 [facility] Comment on above: Performed By: #### 2 934108, 58063954, 31236158, 6035242, 12467828, 5779954, 5988030 ####[facility] [address] [place], [place] [address] MCHC (RBC) [Mass/Vol] 33.9 g/dL Normal 31.4-36.0 [facility] Comment on above: Performed By: #### 2 763719, 40862124, 13048703, 0202041, 53973880, 3553565, 7749287 ####[address] [address] MCV (RBC) [Entitic vol] 87.6 fL Normal 80.0-100.0 [facility] Comment on above: Performed By: #### 2 376345, 47223569, 36816880, 4340083, 09436027, 3911572, 0113535 ####[facility] [address] [place] [address] Platelet mean volume (Bld) [Entitic vol] 8.1 fL Normal 6.4-10.8 [facility] Comment on above: Performed By: #### 2 964504, 97127779, 32439068, 9911203, 54242496, 5373988, 2396662 ####[facility] [address] [place] [address] Platelets (Bld) [#/Vol] 346.0 E9/L Normal 150.0-500.0 [facility] Comment on above: Performed By: #### 2 364602, 18299918, 44626142, 2434484, 51385254, 9643234, 8471966 ####[facility] [address] [place] [address] RBC (Bld) [#/Vol] 2.5 E12/L Low 4.3-5.9 [facility] Comment on above: Performed By: #### 2 770701, 98015107, 51706110, 3086114, 45972637, 0251642, 1741437 ####[facility] [address] [place] [address] WBC corrected for nucl RBC Auto (Bld) [#/Vol] 5.9 E9/L Normal 4.0-11.0 [facility] Comment on above: Performed By: #### 2 642057, 96803703, 41719338, 3666458, 85397021, 4759404, 7024770 ####[facility] [address] [place] [address] CHEMISTRYOrdered By: SYSTEM SYSTEM on 12-20-2022 Calcium [Mass/Vol] 8.4 mg/dL Low 8.9 - 11.1 mg/dL FT Remisol CK [Catalytic activity/Vol] 57 [iU]/d Normal 14 - 261 Int._Unit/L [facility] Remisol Glucose [Mass/Vol] 242 mg/dL High 55 - 199 mg/dL [facility] Remisol Comment on above: Interpretive Data: I f this glucose result represents a fasting glucose, interpretation should refer to the following reference range: 55-99 mg/dL Urea nitrogen/Creatinine [Mass ratio] 17 mg/mg Normal 10 - 20 [facility] Remisol Calcium [Mass/Vol] 8.4 mg/dL Low 8.9 - 11.1 mg/dL [facility] Remisol CRP [Mass/Vol] 14.3 mg/dL High <=1.9mg/dL [facility] Remis ol Glucose [Mass/Vol] 166 mg/dL Normal 55 - 199 mg/dL [facility] Remisol Comment on above: Interpretive Data: I f this glucose result represents a fasting glucose, interpretation should refer to the following reference range: 55-99 mg/dL Urea nitrogen/Creatinine [Mass ratio] 20 mg/mg Normal 10 - [address] [facility] Remisol CKon 12-20-2022 CK [Catalytic activity/Vol] 57 Int._Unit/L Normal 14-261 [facility] Comment on above: Performed By: #### 2 390682, 17600528, 3783811, 1709217, 1057366 ####[facility] [address] [place] [address] CRPon 12-20-2022 CRP [Mass/Vol] 14.3 mg/dL High <=1.9 [facility] Comment on above: Performed By: #### 2 235307, 43016347, 96346923, 2984569, 18099810, 0735341, 3552966 ####[facility] [address] [place] [address] Capillary Glucose POCon 11-30 Glucose [Mass/Vol] 134 mg/dL High 55-99 [facility] Comment on above: Result Comment: Fausto CHAUDHARY Performed By: #### 2 81375069 ####[facility] [address] [place] [address] Glucose [Mass/Vol] 166 mg/dL High 55-99 [facility] Comment on above: Result Comment: Fausto CHAUDHARY Performed By: #### 2 58734329 ####[facility] [address] [place] [address] Glucose [Mass/Vol] 237 mg/dL High 55-99 [facility] Comment on above: Performed By: #### 2 56644093 ####[facility] [address] [place] [address] Glucose [Mass/Vol] 307 mg/dL High 55-99 [facility] Comment on above: Result Comment: Fausto rubi RN/ Performed By: #### 2 71262343 ####[facility] [address] [place] [address] Consent for Treatmenton 11-30 Consent for Treatment [id number]#[id number]:1 27 Normal [facility] Consent for Treatment [id number]#1.00CD:127 Normal [facility] Consultation Noteon 12-21-19 Consultation Note Normal [facility] Comment on above: Result Comment: Elec tronically Signed By: Cordell Grossman DO\Date and Time Signed: 12/20/22 14:36 EDT HEMATOLOGYOrdered By: Anju Marino on 12-20-2022 Band form neutrophils/100 WBC (Bld) 0 % Normal 0 - 10 % [facility] HemeManSS Basophils/100 WBC (Bld) 0 % Normal 0 - 2 % [facility] HemeManSS Basophils/Leukocytes Manual cnt (Bld) [Pure # [...] 9 % Normal 4 - 14 % [facility] HemeManSS Monocytes/Leukocytes Manual cnt (Bld) [Pure # fraction] 0.5 E9/L Normal 0.2 - 1.0 E9/L [facility] HemeManSS Neutrophils/Leukocytes Auto (Bld) [Pure # fraction] 4.2 E9/L Normal 2.0 - 7.5 E9/L [facility] HemeManSS Sed Rate Automated 87 mm/h High 0 - 34 mm/hr [facility] HemeAutoSS Segmented neutrophils/100 WBC (Bld) 72 % Normal 36 - 75 % [facility] HemeManSS Variant lymphocytes LM Ql (Bld) 0 % Normal <=0% 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 Performed By: #### 2 435838, 65276017, 94689559, 1807393, 54564856, 5294273, 1841638 ####[facility] [address] [place] [address] Basophils/100 WBC (Bld) 0 % Normal 0-2 [facility] Comment on above: Order Comment: Order Added by Discern Expert. Performed By: #### 2 475679, 86169500, 29687755, 6269154, 26832704, 0583684, 7472178 ####[facility] [address] [place] [address] Eosinophils/100 WBC (Bld) 2 % Normal 0-8 [facility] Comment on above: Order Comment: Order Added by Discern Expert. Performed By: #### 2 674149, 15086478, 96391664, 4333290, 71553104, 0385793, 8567884 ####[facility] [address] [place] [address] Lymphocytes/100 WBC (Bld) 17 % Normal 14-50 [facility] Comment on above: Order Comment: Order Added by Discern Expert. Performed By: #### 2 362060, 49749811, 81868711, 6419452, 92740806, 4301149, 6335296 ####[facility] [address] [place] [address] Monocytes/100 WBC (Bld) 9 % Normal 4-14 [facility] Comment on above: Order Comment: Order Added by Katherine Expert. Performed By: #### 2 922194, 74017062, 33164207, 3722300, 69069946, 3969704, 9228825 ####[facility] [address] [place] [address] Segmented neutrophils/100 WBC (Bld) 72 % Normal 36-75 [facility] Comment on above: Order Comment: Order Added by Discern Expert. Performed By: #### 2 451511, 29058947, 47721653, 2171548, 12257342, 4947139, 0775542 ####[facility] [address] [place] [address] Variant lymphocytes LM Ql (Bld) 0 % Normal <=0 [facility] Comment on above: Order Comment: Order Added by Discern Expert. Performed By: #### 2 766742, 20286318, 16370086, 5660566, 50675195, 1412078, 4150841 ####[facility] [address] [place] [address] Message from Medicareon 11-30 Message from Medicare [id number]#1.00CD:127 Normal [facility] Message from Medicare [id number]#1.00CD:127 Normal [facility] Comment on above: Other Comment: forgo t to scan the back of it Monitor Recordon 12-20-2022 Monitor Record [id number]#1.00CD:12 7 Normal [facility] Monitor Record [id number]#1.00CD:12 7 Normal [facility] No Panel InformationOrdered By: Pita Butterfield on 12-20-2022 GS 2+ White Blood Cells 1+ Gram Positive Rods Occassional crystals seen on the slide [facility] Wound Culture 1+ Gram Positive Rods resembling diphtheroids [facility] GS 1+ White Blood Cells 2+ Gram Positive Rods Occassional crystals seen on the slide [facility] Wound Culture 1+ Gram Positive Rods resembling diphtheroids [facility] RCOon 12-20-2022 # of Units 1 Invalid Interpretation Code [facility] Comment on above: Order Comment: Blood product ready and called to STACIE _ at _12/20/2022 14:43:34 EDT by amh_. Performed By: #### 1 2240864 ####[facility] [address] [place] [address] Date Required 20221220 Invalid Interpretation Code [facility] Comment on above: Order Comment: Blood product ready and called to STACIE _ at _12/20/2022 14:43:34 EDT by amh_. Performed By: #### 1 1678106 ####[facility] [address] [place] [address] Order to Transfuse Yes Normal [facility] Comment on above: Order Comment: Blood product ready and called to STACIE _ at _12/20/2022 14:43:34 EDT by amh_. Performed By: #### 1 6403230 ####[facility] [address] [place] [address] Product Type None Required Invalid Interpretation Code [facility] Comment on above: Order Comment: Blood product ready and called to STACIE _ at _9/ 14:43:34 EDT by amh_. Performed By: #### 1 0243547 ####[facility] [address] [place] [address] Sed Rate Automatedon 023 Sed Rate Automated 87 mm/hr High 0-34 [facility] Comment on above: Performed By: #### 2 477672, 01604456, 72853427, 8283842, 42099814, 9284591, 0660791 ####[facility] [address] [place] [address] XR Hip 1 View Right + Pelvis on 12-20-2022 XR Hip 1 View Right + Pelvis Normal [facility] eGFRon 12-20-2022 GFR/1.73 sq M.predicted among non-blacks MDRD (S/P/Bld) [Vol rate/Area] 94 mL/min/1.73 m2 Normal >=59 [facility] Comment on above: Order Comment: Order added by Discern Expert. Result Comment: Uc Architect marquez kidney disease could be indicated at eGFR's of less than 60 mL/min/1.73m2. Kidney failure is indicated at less than 15 mL/min/1.73m2. Performed By: #### 2 275788, 01723108, 3799689, 9358292, 0135156 ####[facility] [address] [place] [address] GFR/1.73 sq M.predicted among non-blacks MDRD (S/P/Bld) [Vol rate/Area] 94 mL/min/1.73 m2 Normal >=59 [facility] Comment on above: Order Comment: Order added by Discern Expert. Result Comment: Uc Architect marquez kidney disease could be indicated at eGFR's of less than 60 mL/min/1.73m2. Kidney failure is indicated at less than 15 mL/min/1.73m2. Performed By: #### 2 239826, 95291291, 78990637, 3440663, 10772856, 1468749, 9710066 ####[facility] [address] [place] [address] Capillary Glucose POCon 11-30 Glucose [Mass/Vol] 396 mg/dL High [address] [place] [address] Comment on above: Result Comment: Lucille ronak Meter Performed By: #### 2 43306771 ####[facility] [address] [place] [address] Glucose [Mass/Vol] 212 mg/dL High [address] [place] [address] Comment on above: Result Comment: Lucille ronak Meter Performed By: #### 2 95636897 ####[facility] [address] [place] [address] No Panel InformationOrdered By: [facility] MICROBIOLOGY on 12-19-2022 Blood Culture Charcoal No growth at 4 days. Final to follow at 7 days. [facility] Capillary Glucose POCon 11-30 Glucose [Mass/Vol] 171 mg/dL High [address] [place] [address] Comment on above: Result Comment: Lucille ronak Meter Performed By: #### 2 69644703 ####[facility] [address] [place] [address] Glucose [Mass/Vol] 205 mg/dL High [address] [place] [address] Comment on above: Result Comment: Lucille ronak Meter Performed By: #### 2 [id number] ####[facility] Notmbfzmaj761 [place] [address] Glucose [Mass/Vol] 329 mg/dL [address] Comment on above: Performed By: #### 2 [id number] ####[facility] Fbghizqucq477 [place] [address] Glucose [Mass/Vol] 169 mg/dL [address] Comment on above: Performed By: #### 2 [id number] ####[facility] Yhwrhmmptd702 [place] [address] XR Hip 2-3 Views Right + Pel vison 12-18-2022 XR Hip 2-3 Views Right + Pelvis Normal [facility] Capillary Glucose POCon 11-29 Glucose [Mass/Vol] 209 mg/dL High 55-[address] [place] [address] Comment on above: Result Comment: Lucille ronak Meter Performed By: #### 2 [id number] ####[facility] Gpkxqrrhci[address] [place] [address] Glucose [Mass/Vol] 187 mg/dL [address] Comment on above: Performed By: #### 2 [id number] ####[facility] Nweqeirwrw[address] [place]Nor[place] [address] Glucose [Mass/Vol] 266 mg/dL [address] Comment on above: Performed By: #### 2 [id number] ####[facility] Wvbiayjkzf[address] [place]Nor[place] [address] Glucose [Mass/Vol] 164 mg/dL [address] Comment on above: Result Comment: Lucille ronak Meter Performed By: #### 2 [id number] ####[facility] Kmqgytvxpl120 [address] [place] [address] Capillary Glucose POCon 11-29 Glucose [Mass/Vol] 212 mg/dL [address] Comment on above: Result Comment: Lucille ronak Meter Performed By: #### 2 [id number] ####[facility] Adwjipjnbg819 [facility] [place] [address] Glucose [Mass/Vol] 229 mg/dL [address] Comment on above: Performed By: #### 2 [id number] ####[facility] Ogrzbkfsbi[address] [place] [address] Glucose [Mass/Vol] 152 mg/dL [address] Comment on above: Result Comment: Lucille ronak Meter Performed By: #### 2 [id number] ####[facility] Ttjbesvmzo970 [address] [place]Nor[place] [address] Capillary Glucose POCon 11-29 Glucose [Mass/Vol] 228 mg/dL [address] Comment on above: Result Comment: Lucille ronak Meter Performed By: #### 2 [id number] ####[facility] Fiqglesqru[address] [place] [address] Glucose [Mass/Vol] 208 mg/dL High [address] [place] [address] Comment on above: Result Comment: Repe at TestCleaned Meter Performed By: #### 2 [id number] ####[facility] Cdwlryyvjj[address] [place] [address] Glucose [Mass/Vol] 183 mg/dL [address] Comment on above: Result Comment: Lucille ronak Meter Performed By: #### 2 [id number] ####[facility] Caqddlcpuz102 [facility] [place] [address] Glucose [Mass/Vol] 281 mg/dL [address] Comment on above: Result Comment: Lucille ronak Meter Performed By: #### 2 [id number] ####[facility] Hkanqumsbp328 [place] [address] Capillary Glucose POCon 11-29 Glucose [Mass/Vol] 130 mg/dL [address] Comment on above: Result Comment: Lucille ronak Meter Performed By: #### 2 [id number] ####[facility] Zqgrozqmyx172 [place] [address] Glucose [Mass/Vol] 144 mg/dL [address] Comment on above: Result Comment: Lucille ronak Meter Performed By: #### 2 [id number] ####[facility] Qwbqhtxraa295 [place] [address] Glucose [Mass/Vol] 157 mg/dL [address] Comment on above: Result Comment: Lucille ronak Meter Performed By: #### 2 [id number] ####[facility] Agkzvqegwo116 [facility] [place] [address] Glucose [Mass/Vol] 143 mg/dL [address] Comment on above: Result Comment: Lucille ronak Meter Performed By: #### 2 [id number] ####[facility] Jvvetcnuih[address] [facility] [place] [address] Capillary Glucose POCon 11-29 Glucose [Mass/Vol] 145 mg/dL [address] Comment on above: Result Comment: Lucille ronak Meter Performed By: #### 2 [id number] ####[facility] Nwlwnlkrlw653 [place] [address] Glucose [Mass/Vol] 132 mg/dL [place] [address] [place] [address] Comment on above: Performed By: #### 2 [id number] ####[facility] Pdzzuagsnu009 [place] [address] Glucose [Mass/Vol] 223 mg/dL [place] [address] [place] [address] Comment on above: Performed By: #### 2 [id number] ####[facility] Uziqqvnwza468 [place] [address] Glucose [Mass/Vol] 248 mg/dL [address] Comment on above: Result Comment: Lucille ronak Meter Performed By: #### 2 [id number] ####[facility] Vrnpxjxqqp852 [place] [address] Capillary Glucose POCon 11-29 Glucose [Mass/Vol] 292 mg/dL [address] Comment on above: Result Comment: Lucille ronak Meter Performed By: #### 2 [id number] ####[facility] Qshxkjgxru714 [place] [address] Glucose [Mass/Vol] 115 mg/dL [address] Comment on above: Result Comment: Lucille ronak Meter Performed By: #### 2 [id number] ####[facility] Qkyopcvrvj399 [place] [address] Glucose [Mass/Vol] 207 mg/dL [place] [address] [place] [address] Comment on above: Result Comment: Lucille ronak Meter Performed By: #### 2 [id number] ####[facility] Gyfaxhajxm089 [place] [address] Glucose [Mass/Vol] 159 mg/dL [address] Comment on above: Result Comment: Lucille ronak Meter Performed By: #### 2 [id number] ####[facility] Wpqoksitpa715 [place] [address] Capillary Glucose POCon 11-29 Glucose [Mass/Vol] 256 mg/dL [address] Comment on above: Result Comment: Lucille ronak Meter Performed By: #### 2 [id number] ####[facility] Gvykqohlti928 [place] [address] Glucose [Mass/Vol] 129 mg/dL [address] Comment on above: Result Comment: Lucille ronak Meter Performed By: #### 2 [id number] ####[facility] Nfggiejwlp702 [place] [address] Glucose [Mass/Vol] 235 mg/dL [address] Comment on above: Performed By: #### 2 [id number] ####[facility] Xxcxhtpbiz[address] [place]Nor[place] [address] Glucose [Mass/Vol] 183 mg/dL [address] Comment on above: Result Comment: Lucille ronak Meter Performed By: #### 2 [id number] ####[facility] Oqkhrbjzax8[address] [place] [address] Glucose [Mass/Vol] 178 mg/dL [address] Comment on above: Result Comment: Lucille ronak Meter Performed By: #### 2 [id number] ####[facility] Jeztrhfofm[address] [place] [address] Capillary Glucose POCon 11-29 Glucose [Mass/Vol] 159 mg/dL [address] Comment on above: Result Comment: Lucille ronak Meter Performed By: #### 2 [id number] ####[facility] Ibosagetxb[address] [place] [address] Glucose [Mass/Vol] 149 mg/dL [address] Comment on above: Result Comment: Lucille ronak Meter Performed By: #### 2 [id number] ####[facility] Dgkwmsyyxr202 [place] [address] Glucose [Mass/Vol] 217 mg/dL [address] Comment on above: Result Comment: Lucille ronak Meter Performed By: #### 2 [id number] ####[facility] Zkrouptkyj511 [place] [address] Glucose [Mass/Vol] 206 mg/dL High 55-99 [facility] Comment on above: Result Comment: Lucille ronak Meter Performed By: #### 2 [id number] ####[facility] Tpesrpfqab830 [place] [address] Capillary Glucose POCon 11-29 Glucose [Mass/Vol] 83 mg/dL Normal 55-99 [facility] Comment on above: Result Comment: Lucille ronak Meter Performed By: #### 2 [id number] ####[facility] Jdojxifuzf921 [place] [address] Glucose [Mass/Vol] 215 mg/dL High 55-99 [facility] Comment on above: Performed By: #### 2 [id number] ####[facility] Cqqlfpnegc540 [facility] [place] [address] Glucose [Mass/Vol] 317 mg/dL High 55-99 [facility] Comment on above: Performed By: #### 2 [id number] ####[facility] Jelnvodpye865 [facility] [place] [address] Glucose [Mass/Vol] 166 mg/dL High 55-99 [facility] Comment on above: Result Comment: Lucille ronak Meter Performed By: #### 2 [id number] ####[facility] Mrofcrtfgc483 [facility] [place] [address] Family Medicine Office/Clini c Noteon 12-09-2022 Family Medicine Office/Clinic Note Normal [facility] Comment on above: Result Comment: Elec tronically Signed By: Emely Mccall DO\.br\Date and Time Signed: 12/09/22 09:50 EDT\.br\Electronically Co-Signed By: Sriram Tesfaye\.br\Date and Time Co-Signed: 12/09/22 01:31 EDT Capillary Glucose POCon 11-29 Glucose [Mass/Vol] 282 mg/dL High 55- [facility] Comment on above: Performed By: #### 2 [id number] ####[facility] Xmtikymxsu521 [facility] [place] [address] Glucose [Mass/Vol] 175 mg/dL High 55- [facility] Comment on above: Performed By: #### 2 [id number] ####[facility] Cpbnmimrie080 [place] [address] Glucose [Mass/Vol] 316 mg/dL High 55- [facility] Comment on above: Performed By: #### 2 [id number] ####[facility] Ngojmiqcfn264 [facility] [place] [address] Glucose [Mass/Vol] 262 mg/dL [facility] Comment on above: Result Comment: Lucille ronak Meter Performed By: #### 2 [id number] ####[facility] Fgxbodheir527 [place] [address] Capillary Glucose POCon 090 Glucose [Mass/Vol] 273 mg/dL [address] Comment on above: Result Comment: Lucille ronak Meter Performed By: #### 2 [id number] ####[facility] Jotwyuuhgj595 [place] [address] Glucose [Mass/Vol] 150 mg/dL [place] [address]- [facility] Comment on above: Performed By: #### 2 [id number] ####[facility] Vdprhhltlh218 [place] [address] Glucose [Mass/Vol] 58 mg/dL Normal - [facility] Comment on above: Performed By: #### 2 [id number] ####[facility] Qpiyvqcyrx905 [facility] [place] [address] Glucose [Mass/Vol] 256 mg/dL [facility] 55- [facility] Comment on above: Performed By: #### 2 [id number] ####[facility] Deuylhgmgp477 [place] [address] Glucose [Mass/Vol] 117 mg/dL High 55[address] [place] [address] Comment on above: Result Comment: Lucille ronak Meter Performed By: #### 2 [id number] ####[facility] Mlfeybpjhn726 [address] [place] [address] Capillary Glucose POCon 09-0 Glucose [Mass/Vol] 165 mg/dL [address] Comment on above: Result Comment: Lucille ronak Meter Performed By: #### 2 [id number] ####[facility] Gwqznhfjbn[address] [place] [address] Glucose [Mass/Vol] 202 mg/dL [address] Comment on above: Result Comment: Lucille ronak Meter Performed By: #### 2 [id number] ####[facility] Eygzrbxelw[address] [place] [address] Glucose [Mass/Vol] 280 mg/dL [address] Comment on above: Result Comment: Lucille ronak Meter Performed By: #### 2 [id number] ####[facility] Ejmztmmimz[address] [place] [address] Glucose [Mass/Vol] 156 mg/dL [address] Comment on above: Result Comment: Lucille ronak Meter Performed By: #### 2 [id number] ####[facility] Wjvftygzdy[address] [place] [address] Capillary Glucose POCon 09-0 Glucose [Mass/Vol] 152 mg/dL [address] Comment on above: Result Comment: Lucille ronak Meter Performed By: #### 2 [id number] ####[facility] Gznkerwmcl5[address] [place] [address] Glucose [Mass/Vol] 192 mg/dL [address] Comment on above: Performed By: #### 2 [id number] ####[facility] Masguadtck[address] [place] [address] Glucose [Mass/Vol] 317 mg/dL [address] Comment on above: Result Comment: Lucille ronak Meter Performed By: #### 2 [id number] ####[facility] Xzydnfkogx071 [place] [address] Glucose [Mass/Vol] 185 mg/dL High [address] Comment on above: Performed By: #### 2 [id number] ####[facility] Uuylmszamr317 [place] [address] C Urineon 12-04-2022 Bacteria identified Cx Nom (U) Normal [facility] Comment on above: Performed By: #### 2 607459, [id number] ####[facility] Rdgpheojat639 [place] [address] Capillary Glucose POCon Glucose [Mass/Vol] 206 mg/dL High [address] [place] [address] Comment on above: Result Comment: Lucille ronak Meter Performed By: #### 2 [id number] ####[facility] Ygqbhyiays[address] [place] [address] Glucose [Mass/Vol] 181 mg/dL High [address] [place] [address] Comment on above: Result Comment: Lucille ronak Meter Performed By: #### 2 [id number] ####[facility] Qgrqezskqw[address] [place] [address] Glucose [Mass/Vol] 289 mg/dL [address] Comment on above: Performed By: #### 2 [id number] ####[facility] Xqeyvlocnv[address] [place] [address] Glucose [Mass/Vol] 211 mg/dL High 55-99 [facility] Comment on above: Result Comment: Lucille ronak Meter Performed By: #### 2 [id number] ####[facility] Gioorpqgwo562 [place] [address] Capillary Glucose POCon Glucose [Mass/Vol] 159 mg/dL [address] Comment on above: Result Comment: Lucille ronak Meter Performed By: #### 2 [id number] ####[facility] Khrwhgtnbz[address] [place] [address] Glucose [Mass/Vol] 89 mg/dL Normal -99 [facility] Comment on above: Performed By: #### 2 [id number] ####[facility] [address]tuhkzlzsd[address] [place] [facility] [place] [address] Glucose [Mass/Vol] 194 mg/dL High 55-99 [facility] Comment on above: Performed By: #### 2 [id number] ####[facility] Yncafidmgx885 [facility] [place] [address] Glucose [Mass/Vol] 204 mg/dL High 55-99 [facility] Comment on above: Result Comment: Lucille ronak Meter Performed By: #### 2 [id number] ####[facility] Asollqjvcq126 [facility] [place] [address] Family Medicine Office/Clini c Noteon 12-03-2022 Family Medicine Office/Clinic Note Normal [facility] Comment on above: Result Comment: Elec tronically Signed By: ZAIRA BANKS, José\.br\Date and Time Signed: 12/03/22 22:17 EDT Capillary Glucose POCon Glucose [Mass/Vol] 178 mg/dL High 55-99 [facility] Comment on above: Performed By: #### 2 [id number] ####[facility] Kpswmsndkq174 [facility] [place] [address] Glucose [Mass/Vol] 173 mg/dL High 55-99 [facility] Comment on above: Performed By: #### 2 [id number] ####[facility] [address]jyanxsshh[address] [place] [address] Glucose [Mass/Vol] 230 mg/dL High 55-99 [facility] Comment on above: Performed By: #### 2 [id number] ####[facility] Cifnjbywtt445 [facility] [place] [address] Glucose [Mass/Vol] 347 mg/dL High 55-99 [facility] Comment on above: Result Comment: Insu melissa StartedCleaned Meter Performed By: #### 2 [id number] ####[facility] Ddaohackyu492 [facility] [place] [address] UA With Cult Reflexon 2022 Bacteria LM Ql (Urine sed) 3+ /HPF Abnormal Trace [facility] Comment on above: Performed By: #### 2 [id number], [id number] ####[facility] Moednthlim094 [place] [address] Bilirubin Ql (U) Negative Normal Negative [facility] Comment on above: Performed By: #### 2 561360, [id number] ####[facility] Jnameriryh448 [place] [address] Clarity (U) CLOUDY Abnormal Clear [facility] Comment on above: Performed By: #### 2 659041, [id number] ####[facility] Vtigabfkvr074 [place] [address] Color (U) YELLOW Normal Yellow [facility] Comment on above: Performed By: #### 2 720062, [id number] ####[address] [address] Epithelial cells.squamous LM.HPF (Urine sed) [#/Area] 0-2 Normal 0-2 [facility] Comment on above: Performed By: #### 2 179625, [id number] ####[facility] [address] [place] [address] Glucose Test strip (U) [Mass/Vol] Negative Normal Negative [facility] Comment on above: Performed By: #### 2 607575, [id number] ####[facility] Yrjhgxkerb391 [place] [address] Hemoglobin Ql (U) 1+ Abnormal Negative [facility] Comment on above: Performed By: #### 2 843454, [id number] ####[facility] Dsdnvmogjz062 [place] [address] Ketones (U) [Mass/Vol] Negative Normal Negative [facility] Comment on above: Performed By: #### 2 610800, [id number] ####[facility] Hofifunzcd554 [place] [address] [place].plasma/[place] .RBC (Bld) [Mass ratio] 0-3 Normal 0-3 [facility] Comment on above: Performed By: #### 2 786714, 71000790 ####[facility] Qdllwzoujk847 [place] [address] Mucus Ql (Urine sed) TRACE Normal Fish [facility] Comment on above: Performed By: #### 2 138565, [id number] ####[facility] Ezinuucqbw892 [place] [address] Nitrite Ql (U) Negative Normal Negative [facility] Comment on above: Performed By: #### 2 859818, [id number] ####[facility] Jvidraoqke404 [place] [address] pH (U) 5.5 [pH] Invalid Interpretation Code 5.0-9.0 [facility] Comment on above: Performed By: #### 2 204329, [id number] ####[facility] [address] [place] [address] Protein (U) [Mass/Vol] 1+ Abnormal Negative [facility] Comment on above: Performed By: #### 2 883019, 05761671 ####[facility] Inljngcruq948 [place] [address] Specific gravity (U) [Rel density] 1.025 Invalid Interpretation Code 1.005-1.030 [facility] Comment on above: Performed By: #### 2 809974, 09384529 ####[facility] Yqncandtzx862 [place] [address] Type of Urine collection method Clean Catch Normal [facility] Comment on above: Performed By: #### 2 652991, 08739529 ####[facility] Ftkoadqpql212 [place] [address] Urobilinogen Qn (U) 2.0 {Papa'U}/dL Abnormal 0.0-1.0 [facility] Comment on above: Performed By: #### 2 747364, 64733281 ####[facility] Vzgycazkie697 [place] [address] WBC Auto Ql (U) 3+ Abnormal Negative [facility] Comment on above: Performed By: #### 2 336193, 44937804 ####[facility] Bszthcgrvz416 [place] [address] WBC LM.HPF (Urine sed) [#/Area] /[HPF] Abnormal 0-5 [facility] Comment on above: Performed By: #### 2 164930, [id number] ####[facility] Hehnjkiclh822 [place] [address] Capillary Glucose POCon 09-0 Glucose [Mass/Vol] 265 mg/dL High 55- [facility] Comment on above: Performed By: #### 2 [id number] ####[facility] [address] [place] [address] Glucose [Mass/Vol] 196 mg/dL High - [facility] Comment on above: Performed By: #### 2 [id number] ####[address] [address] Glucose [Mass/Vol] 313 mg/dL High - [facility] Comment on above: Performed By: #### 2 [id number] ####[address] [address] Glucose [Mass/Vol] 243 mg/dL High - [facility] Comment on above: Result Comment: Lucille ronak Meter Performed By: #### 2 [id number] ####[facility] [address]qzmlo626 [place] [address] Capillary Glucose POCon 09-0 Glucose [Mass/Vol] 181 mg/dL High 55- [facility] Comment on above: Result Comment: Lucille ronak Meter Performed By: #### 2 [id number] ####[facility] Ikcgzvcjwj897 [place] [address] Glucose [Mass/Vol] 244 mg/dL High 55- [facility] Comment on above: Result Comment: Lucille ronak Meter Performed By: #### 2 [id number] ####[facility] Vjripdbmbm370 [place] [address] Glucose [Mass/Vol] 177 mg/dL High 55-99 [facility] Comment on above: Performed By: #### 2 [id number] ####[facility] Twsvdpcyyq551 [place] [address] Glucose [Mass/Vol] 272 mg/dL High 55-99 [facility] Comment on above: Result Comment: Lucille ronak Meter Performed By: #### 2 80169125 ####[facility] Woboedaqzu999 [place] [address] CHEMISTRYOrdered By: Lab ROP User on 11-29-2022 Glucose [Mass/Vol] 209 mg/dL High 55 - 99 mg/dL FTM C POC Subsection Comment on above: Result Comment: Fausto CHAUDHARY POC Device SN [id number] Invalid Interpretation Code [facility] POC Subsection POC User ID [id number] Invalid Interpretation Code [facility] POC Subsection POC Username STEPHANIE JANE Invalid Interpretation Code FT POC Subsection Glucose [Mass/Vol] 147 mg/dL High 55 - 99 mg/dL FTM C POC Subsection Comment on above: Result Comment: Fausto CHAUDHARY POC Device SN [id number] Invalid Interpretation Code [facility] POC Subsection POC User ID [id number] Invalid Interpretation Code [facility] POC Subsection POC Username STEPHANIE JANE Invalid Interpretation Code [facility] POC Subsection Capillary Glucose POCon Glucose [Mass/Vol] 219 mg/dL High 55-99 [facility] Comment on above: Performed By: #### 2 [id number] ####[facility] Ulgyvijoks974 [place] [address] Glucose [Mass/Vol] 189 mg/dL High 55-99 [facility] Comment on above: Performed By: #### 2 77744370 ####[facility] Vhmdrkocgo083 [place] [address] Glucose [Mass/Vol] 209 mg/dL High 55-99 [facility] Comment on above: Result Comment: Fausto CHAUDHARY Performed By: #### 2 [id number] ####[facility] Dxsvtgiexa423 [place] [address] Glucose [Mass/Vol] 147 mg/dL High 55-99 [facility] Comment on above: Result Comment: Fausto rubi RN/MD Performed By: #### 2 [id number] ####[facility] Ocuuudqrzf7[address]ton[address] [facility] [place]central [place] [address] Discharge Instructionson Discharge Instructions [id number]#[id number]:127 [facility] Discharge Note-Nursingon Discharge Note-Nursing [facility] Insurance Correspondence Off iceon 11-29-2022 Insurance Correspondence Office [id number]#1.00CD:12 7 [facility] Interdisciplinary Note - Hardeep e Manageron 11-29-2022 Interdisciplinary Note - 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 [facility] Comment on above: Result Comment: Elec tronically Signed By: Radha Prabhakar\.br\Date and Time Signed: 11/29/22 11:10 EDT Interdisciplinary Note - 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 [facility] Comment on above: Result Comment: Elec tronically Signed By: Radha Prabhakar\.br\Date and Time Signed: 11/29/22 10:44 EDT Medication Listson 3 Medication Lists [id number]#1.00CD:127 [facility] Message from Medicareon Message from Medicare [id number]#1.00CD:127 [facility] Monitor Recordon 11-29-2022 Monitor Record [id number]#1.00CD:12 7 [facility] Monitor Record [id number]#1.00CD:12 7 [facility] Monitor Record [id number]#1.00CD:12 7 [facility] Progress Note-Physicianon Progress Note-Physician Normal [facility] Comment on above: Result Comment: Elec tronically Signed By: FALLON BANKS, Soni\.br\Date and Time Signed: 11/29/22 09:02 EDT Transfer Documentson 023 Transfer Documents [id number]#1.00CD:127 Normal [facility] Auto Diffon 11-28-2022 Basophils/100 WBC (Bld) 0.2 % Normal 0.0-2.0 [facility] Comment on above: Order Comment: Order Added by Discern Expert. Performed By: #### 2 888019, 1330377, 4541035, 5368837, 78590429, 6751923 ####[facility] [address]chgkng035 [place] [address] Basophils/Leukocytes Auto (Bld) [Pure # fraction] 0.0 E9/L Normal 0.0-0.2 [facility] Comment on above: Order Comment: Order Added by Discern Expert. Performed By: #### 2 270826, 0568192, 1196416, 9747580, [id number], 4691821 ####[facility] [address]hwmwh966 [place] [address] Eosinophils/100 WBC (Bld) 5.7 % Normal 0.0-8.0 [facility] Comment on above: Order Comment: Order Added by Discern Expert. Performed By: #### 2 991497, 2220413, 8149895, 7567762, 95165008, 3948097 ####[facility] [address]uz[address]acre[address] [place] [address] Eosinophils/Leukocytes Auto (Bld) [Pure # fraction] 0.5 E9/L Normal 0.0-0.5 [facility] Comment on above: Order Comment: Order Added by Discern Expert. Performed By: #### 2 249775, 2339218, 1870914, 2132339, 61678582, 1858369 ####[facility] [address] [place] [address] Lymphocytes/100 WBC (Bld) 17.0 % Normal 14.0-50.0 [facility] Comment on above: Order Comment: Order Added by Discern Expert. Performed By: #### 2 502759, 1039181, 1029466, 7345863, 05498901, 3476538 ####[address] [place] [address] Lymphocytes/Leukocytes Auto (Bld) [Pure # fraction] 1.5 E9/L Normal 1.0-4.0 [facility] Comment on above: Order Comment: Order Added by Discern Expert. Performed By: #### 2 810740, 2351198, 7041860, 5377049, 38594108, 8320820 ####[address] [address] Monocytes/100 WBC (Bld) 11.7 % Normal 4.0-14.0 [facility] Comment on above: Order Comment: Order Added by Katherine Expert. Performed By: #### 2 193976, 1914025, 6294070, 8276356, 34300140, 3772581 ####[address] [address] Monocytes/Leukocytes Auto (Bld) [Pure # fraction] 1.1 E9/L High 0.2-1.0 [facility] Comment on above: Order Comment: Order Added by Katherine Expert. Performed By: #### 2 596587, 7223126, 2567725, 5547551, 50258099, 8655705 ####[address] [place] [address] Neutrophils/100 WBC (Bld) 65.4 % Normal 36.0-75.0 [facility] Comment on above: Order Comment: Order Added by Discern Expert. Performed By: #### 2 798164, 0432391, 8964274, 3545740, 26078756, 9739014 ####[address] [address] Neutrophils/Leukocytes Auto (Bld) [Pure # fraction] 5.9 E9/L Normal 2.0-7.5 [facility] Comment on above: Order Comment: Order Added by Discern Expert. Performed By: #### 2 532294, 2781117, 8867733, 6602907, 62814664, 7377534 ####[facility] [address] [place] [address] BUNon 11-28-2022 Urea nitrogen [Mass/Vol] 13 mg/dL Normal 5-21 [facility] Comment on above: Performed By: #### 2 474316, 4607524, 0351442, 4833257, 80051417, 5293409 ####[facility] [address] [place] [address] CBC w/ Auto Diffon Erythrocyte distribution width (RBC) [Ratio] 13.2 % Normal 10.9-14.2 [facility] Comment on above: Performed By: #### 2 852825, 1155643, 3461522, 5050644, 63197710, 1327873 ####[facility] [address] [place] [address] Hematocrit (Bld) [Volume fraction] 24.5 % Low 34.0-46.0 [facility] Comment on above: Performed By: #### 2 324909, 6801076, 2453377, 2518912, 95399362, 5100606 ####[address] [place] [address] Hemoglobin (Bld) [Mass/Vol] 8.6 g/dL Low 12.0-16.0 [facility] Comment on above: Performed By: #### 2 965904, 2580844, 4036622, 2096121, 28732304, 4043564 ####[facility] [address] [place] [address] MCH (RBC) [Entitic mass] 31.1 pg Normal 27.0-34.0 [facility] Comment on above: Performed By: #### 2 628178, 2388706, 3582577, 8867447, 04889546, 2164635 ####[facility] [address] [place], [place] [address] MCHC (RBC) [Mass/Vol] 35.0 g/dL Normal 31.4-36.0 [facility] Comment on above: Performed By: #### 2 245670, 4365427, 8557131, 9953191, 78000564, 6345231 ####[address] MCV (RBC) [Entitic vol] 89.1 fL Normal 80.0-100.0 [facility] Comment on above: Performed By: #### 2 978370, 7337049, 5666215, 8577075, 09968975, 3607947 ####[address] Platelet mean volume (Bld) [Entitic vol] 9.0 fL Normal 6.4-10.8 [facility] Comment on above: Performed By: #### 2 888958, 5543106, 8094236, 5220925, 72433495, 4328776 ####[address] Platelets (Bld) [#/Vol] 158.0 E9/L Normal 150.0-500.0 [facility] Comment on above: Performed By: #### 2 815676, 5564651, 3968799, 5995240, 59400289, 1172143 ####[address] RBC (Bld) [#/Vol] 2.8 E12/L Low 4.3-5.9 [facility] Comment on above: Performed By: #### 2 916298, 0578434, 4651570, 9022985, 13149716, 4994676 ####[address] [address] WBC corrected for nucl RBC Auto (Bld) [#/Vol] 9.1 E9/L Normal 4.0-11.0 [facility] Comment on above: Performed By: #### 2 721548, 0572301, 1110490, 9955261, 96990203, 1125105 ####[facility] [address] [place] [address] CHEMISTRYOrdered By: Lab ROP User on 11-28-2022 Glucose [Mass/Vol] 141 mg/dL High 55 - 99 mg/dL [facility] C POC Subsection Comment on above: Result Comment: Fausto CHAUDHARY POC Device SN [id number] Invalid Interpretation Code [facility] POC Subsection POC User ID [id number] Invalid Interpretation Code [facility] POC Subsection POC Username JOANNA AG Invalid Interpretation Code [facility] POC Subsection CHEMISTRYOrdered By: SYSTEM SYSTEM on 11-28-2022 Anion gap [Moles/Vol] 7 mmol/L Normal 6 - 16 mEq/L F C Remisol Chloride [Moles/Vol] 112 mmol/L High 101 - 111 mmol/ L [facility] Remisol CO2 [Moles/Vol] 25 mmol/L Normal 21 - 31 mmol/L [facility] Remisol Creatinine [Mass/Vol] 0.9 mg/dL Normal 0.5 - 1.3 mg/d L [facility] Remisol GFR/1.73 sq M.predicted among non-blacks MDRD (S/P/Bld) [Vol rate/Area] 70 mL/min/1.73 m2 Normal >=59mL/min/1.[address] [facility] Chem S Potassium [Moles/Vol] 3.6 mmol/L Normal 3.5 - 5.3 mmol /L [facility] Remisol Sodium [Moles/Vol] 140 mmol/L Normal 135 - 145 mmol/L [facility] Remisol Urea nitrogen [Mass/Vol] 13 mg/dL Normal 5 - 21 mg/dL [facility] Remisol Capillary Glucose POCon 10-31 Glucose [Mass/Vol] 141 mg/dL High 55-99 [facility] Comment on above: Result Comment: Fausto CHAUDHARY Performed By: #### 2 [id number] ####[facility] [address] [place] [address] Glucose [Mass/Vol] 118 mg/dL High 55-99 [facility] Comment on above: Result Comment: Fausto CHAUDHARY Performed By: #### 2 14669856 ####[facility] [address] [place] [address] Glucose [Mass/Vol] 221 mg/dL High 55-99 [facility] Comment on above: Result Comment: Fausto rubi RN/ Performed By: #### 2 71028079 ####[facility] [address] [place] [address] Glucose [Mass/Vol] 147 mg/dL High 55-99 [facility] Comment on above: Result Comment: Fausto rubi RN/ Performed By: #### 2 58138228 ####[facility] [address] [place] [address] Creatinineon 11-28-2022 Creatinine [Mass/Vol] 0.9 mg/dL Normal 0.5-1.3 [facility] Comment on above: Performed By: #### 2 248644, 8805704, 8311400, 3490420, 29359683, 2323970 ####[facility] [address] [place] [address] GetWell Education Videoon GetWell Education Video Yes Patient Avoiding Infections in the Hospital Normal [facility] HEMATOLOGYOrdered By: SYSTEM SYSTEM on 11-28-2022 [...] [Mass/Vol] 35.0 g/dL Normal 31.4 - 36.0 gm /dL [facility] HemeAutoSS MCV (RBC) [Entitic vol] 89.1 fL Normal 80.0 - 100.0 fL [facility]eAuto[facility] Platelet mean volume (Bld) [Entitic vol] 9.0 fL Normal 6.4 - 10.8 fL [facility]eAuto[facility] Platelets (Bld) [#/Vol] 158.0 E9/L Normal 150.0 - 500.0 E9/L [facility]eAutoSS RBC (Bld) [#/Vol] 2.8 E12/L Low 4.3 - 5.9 E12/L [facility] WBC corrected for nucl RBC Auto (Bld) [#/Vol] 9.1 E9/L Normal 4.0 - 11.0 E9/L [facility]eAutoSS Inpatient Clinical Summaryon 11-28-2022 Inpatient Clinical Summary Normal [facility] Inpatient Patient Summaryon 11-28-2022 Inpatient Patient Summary Normal [facility] IntraOperative Documentson 0 11-28-2022 IntraOperative Documents [id number]#[id number]:12 7 Normal [facility] Lyteson 11-28-2022 Anion gap [Moles/Vol] 7 mmol/L Normal 6-16 [facility] Comment on above: Performed By: #### 2 014574, 0987670, 0559120, 2186247, 43302853, 4790457 ####[facility] [address] [place] [address] Chloride [Moles/Vol] 112 mmol/L High 101-111 [facility] Comment on above: Performed By: #### 2 785840, 0601576, 6309709, 4945747, 90032131, 3708837 ####[facility] [address] [place] [address] CO2 [Moles/Vol] 25 mmol/L Normal - [facility] Comment on above: Performed By: #### 2 256359, 5125700, 0012654, 2793900, 20117345, 2425756 ####[facility] [address] [place] [address] Potassium [Moles/Vol] 3.6 mmol/L Normal 3.5-5.3 [facility] Comment on above: Performed By: #### 2 954329, 3265665, 4154480, 6492448, 07648327, 9057263 ####[facility] [address] [place] [address] Sodium [Moles/Vol] 140 mmol/L Normal 135-145 [facility] Comment on above: Performed By: #### 2 351630, 8209393, 5638526, 0109610, 66860719, 3032482 ####[facility] [address] [place] [address] Monitor Recordon 11-28-2022 Monitor Record [id number]#1.00CD:12 7 Normal [facility] Monitor Record [id number]#1.00CD:12 7 Normal [facility] Monitor Record [id number]#1.00CD:12 7 Normal [facility] Progress Note-Physicianon Progress Note-Physician Normal [facility] Comment on above: Result Comment: Elec tronically Signed By: Joaquim Rice DO\.br\Date and Time Signed: 11/28/22 17:17 EDT Progress Note-Physician Normal [facility] Comment on above: Result Comment: Elec tronically Signed By: Soni PADGETT MD\.br\Date and Time Signed: 11/28/22 09:37 EDT eGFRon 11-28-2022 GFR/1.73 sq M.predicted among non-blacks MDRD (S/P/Bld) [Vol rate/Area] 70 mL/min/1.73 m2 Normal >=59 [facility] Comment on above: Order Comment: Order added by Discern Expert. Result Comment: [facility]c Architect marquez kidney disease could be indicated at eGFR's of less than 60 mL/min/1.73m2. Kidney failure is indicated at less than 15 mL/min/1.73m2. Performed By: #### 2 525976, 6777986, 8969924, 4429883, 20173700, 9069291 ####[facility] [address] [place] [address] Auto Diffon 11-27-2022 Basophils/100 WBC (Bld) 0.2 % Normal 0.0-2.0 [facility] Comment on above: Order Comment: Order Added by Discern Expert. Performed By: #### 2 420885, 2911943 ####[facility] [address] [place] [address] Basophils/Leukocytes Auto (Bld) [Pure # fraction] 0.0 E9/L Normal 0.0-0.2 [facility] Comment on above: Order Comment: Order Added by Discern Expert. Performed By: #### 2 464800, 1093638 ####[facility] [address] [place] [address] Eosinophils/100 WBC (Bld) 1.8 % Normal 0.0-8.0 [facility] Comment on above: Order Comment: Order Added by Discern Expert. Performed By: #### 2 647308, 2250164 ####[address] [address] Eosinophils/Leukocytes Auto (Bld) [Pure # fraction] 0.2 E9/L Normal 0.0-0.5 [facility] Comment on above: Order Comment: Order Added by Discern Expert. Performed By: #### 2 754250, 9900427 ####[address] [address] Lymphocytes/100 WBC (Bld) 16.0 % Normal 14.0-50.0 [facility] Comment on above: Order Comment: Order Added by Katherine Expert. Performed By: #### 2 695273, 4750354 ####[address] [address] Lymphocytes/Leukocytes Auto (Bld) [Pure # fraction] 1.4 E9/L Normal 1.0-4.0 [facility] Comment on above: Order Comment: Order Added by Katherine Expert. Performed By: #### 2 599419, 7396279 ####[address] [address] Monocytes/100 WBC (Bld) 11.9 % Normal 4.0-14.0 [facility] Comment on above: Order Comment: Order Added by Katherine Expert. Performed By: #### 2 537919, 6322129 ####[address] [address] Monocytes/Leukocytes Auto (Bld) [Pure # fraction] 1.0 E9/L Normal 0.2-1.0 [facility] Comment on above: Order Comment: Order Added by Katherine Expert. Performed By: #### 2 418685, 0195334 ####[address] [address] Neutrophils/100 WBC (Bld) 70.1 % Normal 36.0-75.0 [facility] Comment on above: Order Comment: Order Added by Discern Expert. Performed By: #### 2 074710, 6879944 ####[facility] [address] [place] [address] Neutrophils/Leukocytes Auto (Bld) [Pure # fraction] 6.2 E9/L Normal 2.0-7.5 [facility] Comment on above: Order Comment: Order Added by Discern Expert. Performed By: #### 2 460057, 6291603 ####[facility] [address] [place] [address] BMPon 11-27-2022 Anion gap [Moles/Vol] 7 mmol/L Normal 6-16 [facility] Comment on above: Performed By: #### 2 509497, 86081310 ####[facility] [address] [place] [address] Calcium [Mass/Vol] 8.1 mg/dL Low 8.9-11.1 [facility] Comment on above: Performed By: #### 2 066480, 56481611 ####[facility] [address] [place] [address] Chloride [Moles/Vol] 114 mmol/L High 101-111 [facility] Comment on above: Performed By: #### 2 379633, 23698287 ####[facility] [address] [place] [address] CO2 [Moles/Vol] 23 mmol/L Normal 21-31 [facility] Comment on above: Performed By: #### 2 059271, 67306025 ####[facility] [address] [place] [address] Creatinine [Mass/Vol] 1.0 mg/dL Normal 0.5-1.3 [facility] Comment on above: Performed By: #### 2 506523, 93672713 ####[facility] [address] [place] [address] Glucose [Mass/Vol] 255 mg/dL High 55-199 [facility] Comment on above: Result Comment: If t his glucose result represents a fasting glucose, interpretation should refer to the following reference range: 55-99 mg/dL Performed By: #### 2 164933, 68397468 ####[facility] [address] [place] [address] Potassium [Moles/Vol] 3.8 mmol/L Normal 3.5-5.3 [facility] Comment on above: Performed By: #### 2 153452, 44164407 ####[facility] [address] [place] [address] Sodium [Moles/Vol] 140 mmol/L Normal 135-145 [facility] Comment on above: Performed By: #### 2 716248, 15255423 ####[address] Urea nitrogen [Mass/Vol] 19 mg/dL Normal 5-21 [facility] Comment on above: Performed By: #### 2 976941, 69468543 ####[address] Urea nitrogen/Creatinine [Mass ratio] 19 No Units Normal 10-20 [facility] Comment on above: Performed By: #### 2 190527, 47536180 ####[address] [address] CBC w/ Auto Diffon 3 Erythrocyte distribution width (RBC) [Ratio] 13.3 % Normal 10.9-14.2 [facility] Comment on above: Performed By: #### 2 071948, 7400373 ####[facility] [address] [place] [address] Hematocrit (Bld) [Volume fraction] 22.7 % Low 34.0-46.0 [facility] Comment on above: Performed By: #### 2 787766, 2713663 ####[facility] [address] [place] [address] Hemoglobin (Bld) [Mass/Vol] 7.8 g/dL Low 12.0-16.0 [facility] Comment on above: Performed By: #### 2 703824, 7929808 ####[address] [address] MCH (RBC) [Entitic mass] 30.6 pg Normal 27.0-34.0 [facility] Comment on above: Performed By: #### 2 731743, 0857442 ####[address] [address] MCHC (RBC) [Mass/Vol] 34.5 g/dL Normal 31.4-36.0 [facility] Comment on above: Performed By: #### 2 150442, 3676035 ####[address] MCV (RBC) [Entitic vol] 88.6 fL Normal 80.0-100.0 [facility] Comment on above: Performed By: #### 2 620686, 8738241 ####[place] [address] Platelet mean volume (Bld) [Entitic vol] 9.3 fL Normal 6.4-10.8 [facility] Comment on above: Performed By: #### 2 396813, 2788665 ####[address] [address] Platelets (Bld) [#/Vol] 133.0 E9/L Low 150.0-500.0 [facility] Comment on above: Performed By: #### 2 353305, 7448355 ####[address] [address] RBC (Bld) [#/Vol] 2.6 E12/L Low 4.3-5.9 [facility] Comment on above: Performed By: #### 2 035868, 6734758 ####[address] [address] WBC corrected for nucl RBC Auto (Bld) [#/Vol] 8.8 E9/L Normal 4.0-11.0 [facility] Comment on above: Performed By: #### 2 057889, 0137910 ####[facility] [address] [place] [address] CHEMISTRYOrdered By: SYSTEM SYSTEM on 11-27-2022 Anion gap [Moles/Vol] 7 mmol/L Normal 6 - 16 mEq/L [facility] Remisol Calcium [Mass/Vol] 8.1 mg/dL Low 8.9 - 11.1 mg/dL FT Remisol Chloride [Moles/Vol] 114 mmol/L High 101 - 111 mmol/ L FT Remisol CO2 [Moles/Vol] 23 mmol/L Normal 21 - 31 mmol/L [facility] Remisol Creatinine [Mass/Vol] 1.0 mg/dL Normal 0.5 - 1.3 mg/d L [facility] Remisol GFR/1.73 sq M.predicted among non-blacks MDRD (S/P/Bld) [Vol rate/Area] 61 mL/min/1.73 m2 Normal >=59mL/min/1.[address] [facility] Chem S Glucose [Mass/Vol] 255 mg/dL High 55 - 199 mg/dL [facility] Remisol Potassium [Moles/Vol] 3.8 mmol/L Normal 3.5 - 5.3 mmol /L [facility] Remisol Sodium [Moles/Vol] 140 mmol/L Normal 135 - 145 mmol/L [facility] Remisol Urea nitrogen [Mass/Vol] 19 mg/dL Normal 5 - 21 mg/dL [facility] Remisol Urea nitrogen/Creatinine [Mass ratio] 19 mg/mg Normal 10 - [address] [facility] Remisol Capillary Glucose POCon 10-31 Glucose [Mass/Vol] 169 mg/dL High 55-99 [facility] Comment on above: Result Comment: Fausto rubi RN/ Performed By: #### 2 [id number] ####[facility] [address] [place] [address] Glucose [Mass/Vol] 104 mg/dL High 55-99 [facility] Comment on above: Result Comment: No C overage Given Performed By: #### 2 78686008 ####[facility] [address] [place] [address] Glucose [Mass/Vol] 166 mg/dL High 55-99 [facility] Comment on above: Result Comment: Insu melissa Started Performed By: #### 2 59685678 ####[facility] [address] [place] [address] Glucose [Mass/Vol] 110 mg/dL High 55-99 [facility] Comment on above: Result Comment: No C overage Given Performed By: #### 2 95055385 ####[facility] [address] [place] [address] HEMATOLOGYOrdered By: SYSTEM SYSTEM on 11-27-2022 Basophils/100 [...] 22.7 % Low 34.0 - 46.0 % [facility] HemeAutoSS Hemoglobin (Bld) [Mass/Vol] 7.8 g/dL Low 12.0 - 16.0 gm/dL [facility] HemeAutoSS MCH (RBC) [Entitic mass] 30.6 pg Normal 27.0 - 34.0 pg FT HemeAutoSS MCHC (RBC) [Mass/Vol] 34.5 g/dL Normal 31.4 - 36.0 gm /dL FT HemeAutoSS MCV (RBC) [Entitic vol] 88.6 fL Normal 80.0 - 100.0 fL [facility] HemeAutoSS Platelet mean volume (Bld) [Entitic vol] 9.3 fL Normal 6.4 - 10.8 fL FT HemeAutoSS Platelets (Bld) [#/Vol] 133.0 E9/L Low 150.0 - 500.0 E9/L [facility] HemeAutoSS RBC (Bld) [#/Vol] 2.6 E12/L Low 4.3 - 5.9 E12/L [facility] HemeAutoSS WBC corrected for nucl RBC Auto (Bld) [#/Vol] 8.8 E9/L Normal 4.0 - 11.0 E9/L [facility] HemeAutoSS Monitor Recordon 11-27-2022 Monitor Record [id number]#[id number]:12 7 Normal [facility] Monitor Record [id number]#1.00CD:12 7 Normal [facility] Monitor Record [id number]#1.00CD:12 7 [facility] Progress Note-Physicianon Progress Note-Physician [facility] Comment on above: Result Comment: Elec tronically Signed By: Joaquim Rice DO\.br\Date and Time Signed: 11/27/22 20:04 EDT Progress Note-Physician [facility] Comment on above: Result Comment: Elec tronically Signed By: FALLON BANKS, Soni\.br\Date and Time Signed: 11/27/22 09:12 EDT eGFRon 11-27-2022 GFR/1.73 sq M.predicted among non-blacks MDRD (S/P/Bld) [Vol rate/Area] 61 mL/min/1.73 m2 Normal >=59 [facility] Comment on above: Order Comment: Order added by Discern Expert. Result Comment: [facility] Architect marquez kidney disease could be indicated at eGFR's of less than 60 mL/min/1.73m2. Kidney failure is indicated at less than 15 mL/min/1.73m2. Performed By: #### 2 446238, 12680675 ####[facility] [address] [place] [address] Auto Diffon 11-26-2022 Basophils/100 WBC (Bld) 0.1 % Normal 0.0-2.0 [facility] Comment on above: Order Comment: Order Added by Katherine Expert. Performed By: #### 2 096594, 7682820 ####[address] [address] Basophils/Leukocytes Auto (Bld) [Pure # fraction] 0.0 E9/L Normal 0.0-0.2 [facility] Comment on above: Order Comment: Order Added by Katherine Expert. Performed By: #### 2 022616, 0343344 ####[address] [address] Eosinophils/100 WBC (Bld) 0.0 % Normal 0.0-8.0 [facility] Comment on above: Order Comment: Order Added by Katherine Expert. Performed By: #### 2 951300, 4026967 ####[address] [address] Eosinophils/Leukocytes Auto (Bld) [Pure # fraction] 0.0 E9/L Normal 0.0-0.5 [facility] Comment on above: Order Comment: Order Added by Katherine Expert. Performed By: #### 2 236145, 0243360 ####[address] [address] Lymphocytes/100 WBC (Bld) 4.8 % Low 14.0-50.0 [facility] Comment on above: Order Comment: Order Added by Discern Expert. Performed By: #### 2 193716, 9541564 ####[address] [place] [address] Lymphocytes/Leukocytes Auto (Bld) [Pure # fraction] 0.4 E9/L Low 1.0-4.0 [facility] Comment on above: Order Comment: Order Added by Discern Expert. Performed By: #### 2 878221, 5674114 ####[address] [address] Monocytes/100 WBC (Bld) 6.9 % Normal 4.0-14.0 [facility] Comment on above: Order Comment: Order Added by Discern Expert. Performed By: #### 2 538902, 6598547 ####[address] [address] Monocytes/Leukocytes Auto (Bld) [Pure # fraction] 0.5 E9/L Normal 0.2-1.0 [facility] Comment on above: Order Comment: Order Added by Discern Expert. Performed By: #### 2 539303, 5679763 ####[address] [address] Neutrophils/100 WBC (Bld) 88.2 % High 36.0-75.0 [facility] Comment on above: Order Comment: Order Added by Discern Expert. Performed By: #### 2 097466, 8066590 ####[address] [address] Neutrophils/Leukocytes Auto (Bld) [Pure # fraction] 6.6 E9/L Normal 2.0-7.5 [facility] Comment on above: Order Comment: Order Added by Discern Expert. Performed By: #### 2 344695, 7416255 ####[address] [address] BMPon 11-26-2022 Anion gap [Moles/Vol] 7 mmol/L Normal 6-16 [facility] Comment on above: Performed By: #### 2 121484, 72043837 ####[address] [place] [address] Calcium [Mass/Vol] 7.9 mg/dL Low 8.9-11.1 [facility] Comment on above: Performed By: #### 2 738728, 92697603 ####[facility] [address] [place] [address] Chloride [Moles/Vol] 108 mmol/L Normal 101-111 [facility] Comment on above: Performed By: #### 2 406856, 30450552 ####[facility] [address] [place] [address] CO2 [Moles/Vol] 22 mmol/L Normal 21-31 [facility] Comment on above: Performed By: #### 2 883737, 20662079 ####[facility] [address] [place] [address] Creatinine [Mass/Vol] 1.3 mg/dL Normal 0.5-1.3 [facility] Comment on above: Performed By: #### 2 668403, 88759528 ####[facility] [address] [place] [address] Glucose [Mass/Vol] 353 mg/dL High 55-199 [facility] Comment on above: Result Comment: If t his glucose result represents a fasting glucose, interpretation should refer to the following reference range: 55-99 mg/dL Performed By: #### 2 795372, 02369231 ####[facility] [address] [place] [address] Potassium [Moles/Vol] 4.1 mmol/L Normal 3.5-5.3 [facility] Comment on above: Performed By: #### 2 598845, 80003920 ####[facility] [address] [place] [address] Sodium [Moles/Vol] 133 mmol/L Low 135-145 [facility] Comment on above: Performed By: #### 2 428609, 10472841 ####[facility] [address] [place] [address] Urea nitrogen [Mass/Vol] 21 mg/dL Normal 5-21 [facility] Comment on above: Performed By: #### 2 [id number], [id number] ####[facility] [address] [place] [id number] Urea nitrogen/Creatinine [Mass ratio] 16 No Units Normal 10-20 [facility] Comment on above: Performed By: #### 2 [id number], [id number] ####[facility] [address] [place] [id number] CBC w/ Auto Diffon 3 Erythrocyte distribution width (RBC) [Ratio] 12.7 % Normal 10.9-14.2 [facility] Comment on above: Performed By: #### 2 [id number], [id number] ####[address] [address] Hematocrit (Bld) [Volume fraction] 22.2 % Low 34.0-46.0 [facility] Comment on above: Performed By: #### 2 310045, 8985419 ####[address] [address] Hemoglobin (Bld) [Mass/Vol] 7.6 g/dL Low 12.0-16.0 [facility] Comment on above: Performed By: #### 2 602993, 2269160 ####[address] [address] MCH (RBC) [Entitic mass] 30.0 pg Normal 27.0-34.0 [facility] Comment on above: Performed By: #### 2 075779, 2425412 ####[facility] [address] [place] [address] MCHC (RBC) [Mass/Vol] 34.1 g/dL Normal 31.4-36.0 [facility] Comment on above: Performed By: #### 2 027804, 1245681 ####[address] [address] MCV (RBC) [Entitic vol] 88.1 fL Normal 80.0-100.0 [facility] Comment on above: Performed By: #### 2 188913, 5554365 ####[facility] [address] [place] [address] Platelet mean volume (Bld) [Entitic vol] 8.9 fL Normal 6.4-10.8 [facility] Comment on above: Performed By: #### 2 829875, 9418634 ####[facility] [address] [place] [address] Platelets (Bld) [#/Vol] 121.0 E9/L Low 150.0-500.0 [facility] Comment on above: Performed By: #### 2 921660, 9065075 ####[address] [address] RBC (Bld) [#/Vol] 2.5 E12/L Low 4.3-5.9 [facility] Comment on above: Performed By: #### 2 791544, 2664199 ####[facility] [address] [place] [address] WBC corrected for nucl RBC Auto (Bld) [#/Vol] 7.5 E9/L Normal 4.0-11.0 [facility] Comment on above: Performed By: #### 2 989753, 0009517 ####[address] [address] CHEMISTRYOrdered By: SYSTEM SYSTEM on 11-26-2022 Anion gap [Moles/Vol] 7 mmol/L Normal 6 - 16 mEq/L [facility] Remisol Calcium [Mass/Vol] 7.9 mg/dL Low 8.9 - 11.1 mg/dL [facility] Remisol Chloride [Moles/Vol] 108 mmol/L Normal 101 - 111 mmol/ L [facility] Remisol CO2 [Moles/Vol] 22 mmol/L Normal 21 - 31 mmol/L [facility] Remisol Creatinine [Mass/Vol] 1.3 mg/dL Normal 0.5 - 1.3 mg/d L [facility] Remisol GFR/1.73 sq M.predicted among non-blacks MDRD (S/P/Bld) [Vol rate/Area] 45 mL/min/1.73 m2 Low >=59mL/min/1.[address] [facility] Chem S Glucose [Mass/Vol] 353 mg/dL High 55 - 199 mg/dL [facility] Remisol Potassium [Moles/Vol] 4.1 mmol/L Normal 3.5 - 5.3 mmol /L [facility] Remisol Sodium [Moles/Vol] 133 mmol/L Low 135 - 145 mmol/L [facility] Remisol Urea nitrogen [Mass/Vol] 21 mg/dL Normal 5 - 21 mg/dL [facility] Remisol Urea nitrogen/Creatinine [Mass ratio] 16 mg/mg Normal 10 - [address] [facility] Remisol Capillary Glucose POCon 10-30 Glucose [Mass/Vol] 184 mg/dL High 55- [facility] Comment on above: Result Comment: Fausto CHAUDHARY Performed By: #### 2 [id number] ####[facility] [address] [place] [address] Glucose [Mass/Vol] 231 mg/dL High - [facility] Comment on above: Performed By: #### 2 [id number] ####[facility] [address] [place] [address] Glucose [Mass/Vol] 248 mg/dL High - [facility] Comment on above: Result Comment: Fausto CHAUDHARY Performed By: #### 2 [id number] ####[facility] [address] [place] [address] Glucose [Mass/Vol] 299 mg/dL High 55- [facility] Comment on above: Result Comment: Fausto CHAUDHARY Performed By: #### 2 [id number] ####[facility] [address] [place] [address] Consent for Anesthesiaon Consent for Anesthesia [id number]#[id number]:12 7 Normal [facility] HEMATOLOGYOrdered By: Chrissy Bradford on 11-26-2022 [...] [Mass/Vol] 34.1 g/dL Normal 31.4 - 36.0 gm /dL [facility] HemeAutoSS MCV (RBC) [Entitic vol] 88.1 fL Normal 80.0 - 100.0 fL [facility] HemeAutoSS Platelet mean volume (Bld) [Entitic vol] 8.9 fL Normal 6.4 - 10.[address] [facility] HemeAutoSS Platelets (Bld) [#/Vol] 121.0 E9/L Low 150.0 - 500.0 E9/L [facility] HemeAutoSS RBC (Bld) [#/Vol] 2.5 E12/L Low 4.3 - 5.9 E12/L [facility] HemeAutoSS WBC corrected for nucl RBC Auto (Bld) [#/Vol] 7.5 E9/L Normal 4.0 - 11.0 E9/L [facility] HemeAutoSS Hct & Hgbon 11-26-2022 Hematocrit (Bld) [Volume fraction] 23.2 % Low 34.0-46.0 [facility] Comment on above: Performed By: #### 1 7839775 ####[facility] [address] [place] [address] Hemoglobin (Bld) [Mass/Vol] 8.0 g/dL Low 12.0-16.0 [facility] Comment on above: Performed By: #### 1 8047858 ####[facility] [address] [place] [address] Insurance Correspondence Off iceon 11-26-2022 Insurance Correspondence Office [id number]#[id number]:127 Normal [facility] Interdisciplinary Note - Hardeep e Manageron 11-26-2022 Interdisciplinary Note - 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 [facility] Comment on above: Result Comment: Elec tronically Signed By: Radha Prabhakar\.br\Date and Time Signed: 11/26/22 11:36 EDT Interdisciplinary Note - Timo n 11-26-2022 Interdisciplinary Note - OT Normal [facility] Interdisciplinary Note - PTo n 11-26-2022 Interdisciplinary Note - PT Normal [facility] IntraOperative Documentson 0 11-26-2022 IntraOperative Documents [id number]#1.00CD:12 7 Normal [facility] Progress Note-Physicianon Progress Note-Physician Normal [facility] Comment on above: Result Comment: Elec tronically Signed By: MD Juan, Nomi F\.br\Date and Time Signed: 11/26/22 15:06 EDT Progress Note-Physician Normal [facility] Comment on above: Result Comment: Elec tronically Signed By: MD Juan, Nomi F\.br\Date and Time Signed: 11/26/22 15:03 EDT Progress Note-Physician Normal [facility] Comment on above: Result Comment: Elec tronically Signed By: Anu MANZANO\.br\Date and Time Signed: 11/26/22 11:10 EDT\.br\Electronically Co-Signed By: Nesha SHANKAR MD\.br\Date and Time Co-Signed: 11/26/22 11:41 EDT RCOon 11-26-2022 # of Units 1 Invalid Interpretation Code [facility] Comment on above: Result Comment: 11/26 10:54 [id number] product ready and called to 3N MARVIN at 11/26/2022 10:54:18 EDT by KARISSA. Performed By: #### 1 [id number] ####[facility] [address] [facility] [place] [address] Date Required 20221126 Invalid Interpretation Code [facility] Comment on above: Performed By: #### 1 3633928 ####[facility] [address] [place] [address] Order to Transfuse Yes Normal [facility] Comment on above: Performed By: #### 1 1444090 ####[facility] [address] [facility] [place] [address] Product Type None Required Invalid Interpretation Code [facility] Comment on above: Performed By: #### 1 [id number] ####[facility] [address] [place] [facility] [place] [address] eGFRon 11-26-2022 GFR/1.73 sq M.predicted among non-blacks MDRD (S/P/Bld) [Vol rate/Area] 45 mL/min/1.73 m2 Low >=59 [facility] Comment on above: Order Comment: Order added by Discern Expert. Result Comment: [employer] Architect marquez kidney disease could be indicated at eGFR's of less than 60 mL/min/1.73m2. Kidney failure is indicated at less than 15 mL/min/1.73m2. Performed By: #### 2 460564, 14385258 ####[address] [place] [address] Auto Diffon 11-25-2022 Basophils/100 WBC (Bld) 0.4 % Normal 0.0-2.0 [facility] Comment on above: Order Comment: Order Added by Discern Expert. Performed By: #### 2 613058, 1394891, 68945989, 0294952, 3834470, 7566286, 9873011 ####[address] [address] Basophils/Leukocytes Auto (Bld) [Pure # fraction] 0.0 E9/L Normal 0.0-0.2 [facility] Comment on above: Order Comment: Order Added by Discern Expert. Performed By: #### 2 850560, 4900189, 35434379, 8460581, 4901296, 8021159, 3210589 ####[address] [address] Eosinophils/100 WBC (Bld) 4.1 % Normal 0.0-8.0 [facility] Comment on above: Order Comment: Order Added by Discern Expert. Performed By: #### 2 334454, 0315597, 00726085, 5550312, 6786504, 7351871, 2622708 ####[facility] [address] [place] [address] Eosinophils/Leukocytes Auto (Bld) [Pure # fraction] 0.2 E9/L Normal 0.0-0.5 [facility] Comment on above: Order Comment: Order Added by Katherine Expert. Performed By: #### 2 860116, 4395015, 90142033, 0908085, 3765816, 2044359, 4327733 ####[address] [place] [address] Lymphocytes/100 WBC (Bld) 28.6 % Normal 14.0-50.0 [facility] Comment on above: Order Comment: Order Added by Discern Expert. Performed By: #### 2 256641, 5021049, 85019078, 1861519, 2590838, 2563462, 1820759 ####[address] [place] [address] Lymphocytes/Leukocytes Auto (Bld) [Pure # fraction] 1.4 E9/L Normal 1.0-4.0 [facility] Comment on above: Order Comment: Order Added by Katherine Expert. Performed By: #### 2 700610, 8223973, 77491906, 6911615, 3154111, 6564035, 9377649 ####[address] [address] Monocytes/100 WBC (Bld) 13.8 % Normal 4.0-14.0 [facility] Comment on above: Order Comment: Order Added by Katherine Expert. Performed By: #### 2 701400, 4199117, 32944492, 4312083, 3969673, 3332766, 7360840 ####[address] [address] Monocytes/Leukocytes Auto (Bld) [Pure # fraction] 0.7 E9/L Normal 0.2-1.0 [facility] Comment on above: Order Comment: Order Added by Katherine Expert. Performed By: #### 2 771957, 5354694, 52448282, 2339328, 8568264, 5441675, 8239861 ####[address] [place] [address] Neutrophils/100 WBC (Bld) 53.1 % Normal 36.0-75.0 [facility] Comment on above: Order Comment: Order Added by Katherine Expert. Performed By: #### 2 437842, 9677609, 69449638, 9987021, 1919887, 3875125, 0751309 ####[address] [address] Neutrophils/Leukocytes Auto (Bld) [Pure # fraction] 2.6 E9/L Normal 2.0-7.5 [facility] Comment on above: Order Comment: Order Added by Discern Expert. Performed By: #### 2 266063, 3015675, 13086190, 0183513, 1531980, 0572818, 7397122 ####[facility] [address] [place] [address] BMPon 11-25-2022 Anion gap [Moles/Vol] 7 mmol/L Normal 6-16 [facility] Comment on above: Performed By: #### 2 861577, 4255287, 35797030, 5994573, 9686776, 8199001, 0335187 ####[facility] [address] [place] [address] Calcium [Mass/Vol] 8.6 mg/dL Low 8.9-11.1 [facility] Comment on above: Performed By: #### 2 757621, 7525205, 19561889, 5985968, 5594504, 7841491, 9582761 ####[facility] [address] [place] [address] Chloride [Moles/Vol] 114 mmol/L High 101-111 [facility] Comment on above: Performed By: #### 2 836001, 1182238, 12335417, 4014370, 2194331, 1759326, 2166567 ####[facility] [address] [place] [address] CO2 [Moles/Vol] 24 mmol/L Normal 21-31 [facility] Comment on above: Performed By: #### 2 541224, 5455221, 83190124, 6870497, 6613670, 9264884, 5995619 ####[facility] [address] [place] [address] Creatinine [Mass/Vol] 1.0 mg/dL Normal 0.5-1.3 [facility] Comment on above: Performed By: #### 2 486858, 9290874, 77257330, 7787213, 8272689, 3554730, 8412842 ####[facility] [address] [place] [address] Glucose [Mass/Vol] 98 mg/dL Normal 55-199 [facility] Comment on above: Result Comment: If t his glucose result represents a fasting glucose, interpretation should refer to the following reference range: 55-99 mg/dL Performed By: #### 2 234742, 0973994, 85264326, 8688488, 2303327, 3184208, 7137702 ####[facility] [address] [place] [address] Potassium [Moles/Vol] 4.0 mmol/L Normal 3.5-5.3 [facility] Comment on above: Performed By: #### 2 075594, 8203862, 66445130, 6078739, 3372729, 1960294, 7999335 ####[facility] [address] [place] [address] Sodium [Moles/Vol] 141 mmol/L Normal 135-145 [facility] Comment on above: Performed By: #### 2 262107, 5733359, 06976213, 5406244, 5717662, 7121014, 4306606 ####[facility] [address] [place] [address] Urea nitrogen [Mass/Vol] 13 mg/dL Normal 5-21 [facility] Comment on above: Performed By: #### 2 215464, 4963550, 04756327, 3341611, 1678673, 1566466, 5049845 ####[facility] [address] [place] [address] Urea nitrogen/Creatinine [Mass ratio] 13 No Units Normal 10-20 [facility] Comment on above: Performed By: #### 2 436816, 8155558, 68472558, 5066250, 2423983, 0022842, 7637783 ####[facility] [address] [place] [address] CBC w/ Auto Diffon 3 Erythrocyte distribution width (RBC) [Ratio] 13.1 % Normal 10.9-14.2 [facility] Comment on above: Performed By: #### 2 524022, 7744199, 62183957, 1278522, 7817208, 2052227, 6047244 ####[facility] [address] [place] [address] Hematocrit (Bld) [Volume fraction] 28.1 % Low 34.0-46.0 [facility] Comment on above: Performed By: #### 2 439995, 4717558, 33277861, 4283266, 1987594, 4946774, 6459227 ####[address] [place] [address] Hemoglobin (Bld) [Mass/Vol] 9.6 g/dL Low 12.0-16.0 [facility] Comment on above: Performed By: #### 2 040028, 0262326, 27372096, 4152825, 0828750, 2275093, 0363743 ####[facility] [address] [place] [address] MCH (RBC) [Entitic mass] 30.3 pg Normal 27.0-34.0 [facility] Comment on above: Performed By: #### 2 346428, 8822648, 64880711, 5387330, 4870421, 8600286, 8216156 ####[address] [address] MCHC (RBC) [Mass/Vol] 34.0 g/dL Normal 31.4-36.0 [facility] Comment on above: Performed By: #### 2 571020, 5093672, 07429179, 3242687, 5694231, 5952559, 8230239 ####[address] [address] MCV (RBC) [Entitic vol] 89.1 fL Normal 80.0-100.0 [facility] Comment on above: Performed By: #### 2 821934, 4667728, 76621849, 0417715, 0402240, 8355955, 7165967 ####[facility] [address] [place] [address] Platelet mean volume (Bld) [Entitic vol] 8.7 fL Normal 6.4-10.8 [facility] Comment on above: Performed By: #### 2 286313, 5668951, 67383815, 6725848, 9471783, 9418729, 8485301 ####[address] [place] [address] Platelets (Bld) [#/Vol] 91.0 E9/L Low 150.0-500.0 [facility] Comment on above: Result Comment: Slid e reviewed by 11/25/2022 07:41:07 EDT.Platelet count verified using smear estimate Performed By: #### 2 327088, 1794217, 35483810, 9045074, 0845228, 1428922, 3945566 ####[address] [address] RBC (Bld) [#/Vol] 3.2 E12/L Low 4.3-5.9 [facility] Comment on above: Performed By: #### 2 415261, 2756383, 78555087, 2199981, 0919867, 4875635, 5892362 ####[address] [address] WBC corrected for nucl RBC Auto (Bld) [#/Vol] 4.8 E9/L Normal 4.0-11.0 [facility] Comment on above: Performed By: #### 2 133590, 9442738, 68672556, 3624905, 7625965, 9832500, 3391882 ####[address] [place] [address] CBC w/Indiceson 11-25-2022 Erythrocyte distribution width (RBC) [Ratio] 13.0 % Normal 10.9-14.2 [facility] Comment on above: Performed By: #### 2 855301 ####[address] [place] [address] Hematocrit (Bld) [Volume fraction] 28.2 % Low 34.0-46.0 [facility] Comment on above: Performed By: #### 2 382153 ####[address] [address] Hemoglobin (Bld) [Mass/Vol] 9.2 g/dL Low 12.0-16.0 [facility] Comment on above: Performed By: #### 2 533675 ####[address] [address] MCH (RBC) [Entitic mass] 29.5 pg Normal 27.0-34.0 [facility] Comment on above: Performed By: #### 2 300072 ####[address] [address] MCHC (RBC) [Mass/Vol] 32.7 g/dL Normal 31.4-36.0 [facility] Comment on above: Performed By: #### 2 754666 ####[address] [address] MCV (RBC) [Entitic vol] 90.4 fL Normal 80.0-100.0 [facility] Comment on above: Performed By: #### 2 872589 ####[address] [address] Platelet mean volume (Bld) [Entitic vol] 9.1 fL Normal 6.4-10.8 [facility] Comment on above: Performed By: #### 2 794876 ####[address] [address] Platelets (Bld) [#/Vol] 128.0 E9/L Low 150.0-500.0 [facility] Comment on above: Performed By: #### 2 253299 ####[address] [address] RBC (Bld) [#/Vol] 3.1 E12/L Low 4.3-5.9 [facility] Comment on above: Performed By: #### 2 473325 ####[facility] [address] [place] [address] WBC corrected for nucl RBC Auto (Bld) [#/Vol] 11.7 E9/L High 4.0-11.0 [facility] Comment on above: Performed By: #### 2 022708 ####[facility] [address] [place] [address] CHEMISTRYOrdered By: SYSTEM SYSTEM on 11-25-2022 Calcium [Mass/Vol] 8.6 mg/dL Low 8.9 - 11.1 mg/dL [facility] Remisol Glucose [Mass/Vol] 98 mg/dL Normal 55 - 199 mg/dL [facility] Rem[facility] Iron [Mass/Vol] 42 ug/dL Normal 35 - 153 mcg/dL [facility] Remisol Iron binding capacity [Mass/Vol] 260 ug/dL Normal 250 - 400 mcg/dL [facility] Remisol Iron saturation [Mass fraction] 16 % Low 20 - 50 % [facility] Remisol Transferrin [Mass/Vol] 186 mg/dL Low 200 - 370 mg/ dL [facility] Remisol Urea nitrogen/Creatinine [Mass ratio] 13 [...] Remisol Capillary Glucose POCon 10-30 Glucose [Mass/Vol] 411 mg/dL High 55-99 [facility] Comment on above: Result Comment: Fausto CHAUDHARY Performed By: #### 2 61092497 ####[facility] [address] [facility] [place] [address] Glucose [Mass/Vol] 409 mg/dL High 55-99 [facility] Comment on above: Result Comment: Fausto CHAUDHARY Performed By: #### 2 59496246 ####[facility] [address] [facility] [place] [address] Glucose [Mass/Vol] 127 mg/dL High 55-99 [facility] Comment on above: Result Comment: No C overage Given Performed By: #### 2 56912799 ####[facility] [address] [place] [address] Glucose [Mass/Vol] 88 mg/dL Normal 55-99 [facility] Comment on above: Performed By: #### 2 27241603 ####[facility] [address] [place] [address] Glucose [Mass/Vol] 87 mg/dL Normal 55-99 [facility] Comment on above: Result Comment: Fausto CHAUDHARY Performed By: #### 2 72835281 ####[facility] [address] [facility] [place] [address] Glucose [Mass/Vol] 98 mg/dL Normal 55-99 [facility] Comment on above: Result Comment: Fausto CHAUDHARY Performed By: #### 2 20052617 ####[facility] [address] [facility] [place] [address] Glucose [Mass/Vol] 108 mg/dL High 55-99 [facility] Comment on above: Result Comment: Fausto CHAUDHARY Performed By: #### 2 02247080 ####[facility] [address] [place] [address] Consent for Procedure/Surger yon 11-25-2022 Consent for Procedure/Surgery [id number]#[id number]:12 7 Normal [facility] Ferritinon 11-25-2022 Ferritin [Mass/Vol] 51 ng/mL Normal 11-307 [facility] Comment on above: Result Comment: NORM ALS MEN <30 YRS 16-132 ng/mL MEN >30 YRS 8-338 ng/mL WOMEN (PREMEN) 6-104 ng/mL WOMEN (POSTMEN) 12-210 ng/mL Performed By: #### 2 871802, 5341269, 45730276, 33156388, 9713691, 8722859, 1211488, 5721111, 5292289 ####[facility] [address] [place] [address] Folateon 11-25-2022 Folate [Mass/Vol] 5.4 ng/mL Low >=6.7 [facility] Comment on above: Performed By: #### 2 186161, 6091197, 53457592, 65586795, 5050416, 8524390, 1750836, 7061403, 2411390 ####[facility] [address] [place] [address] FgzQ7yml 11-25-2022 HbA1c (Bld) [Mass fraction] 6.3 % High <=5.9 [facility] Comment on above: Performed By: #### 1 3510199, 9369062, 0419798, 16848489, 9632520, 12411414, 5826484, 2046103, 694589253, 4023025, 2365734 ####[facility] [address] [place] [address] Insurance Correspondence Off iceon 11-25-2022 Insurance Correspondence Office [id number]#1.00CD:12 7 Normal [facility] Interdisciplinary Note - Hardeep e Manageron 11-25-2022 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 Performed By: #### 2 463796, 4435161, 76976010, 7507202, 1774943, 0964882, 9301046 ####[facility] [address] [place] [address] Iron Saturationon 11-25-2022 Iron binding capacity [Mass/Vol] 260 microgram/dL Normal 250-400 [facility] Comment on above: Performed By: #### 2 207476, 6820767, 90235928, 2078619, 3922056, 1151399, 6507877 ####[facility] [address] [place] [address] Iron saturation [Mass fraction] 16 % Low 20-50 [facility] Comment on above: Performed By: #### 2 515178, 5136424, 66689085, 4852058, 8766911, 3793415, 1031286 ####[facility] [address] [place] [address] Main OR PACU I Recordon 10-30 Main OR PACU I Record Normal [facility] Main OR Preoperative Recordo n 11-25-2022 Main OR Preoperative Record Normal [facility] Message from Medicareon 10-30 Message from Medicare [id number]#[id number]:12 7 Normal [facility] Monitor Recordon 11-25-2022 Monitor Record [id number]#[id number]:12 7 Normal [facility] Monitor Record [id number]#1.00CD:12 7 Normal [facility] Monitor Record [id number]#1.00CD:12 7 Normal [facility] Operative Reporton 3 Operative Report Normal [facility] Comment on above: Result Comment: Elec tronically Signed By: Joaquim Rice DO\.br\Date and Time Signed: 11/25/22 17:00 EDT Outpatient Surgery Discharge Instructionon 11-25-2022 Outpatient Surgery Discharge Instruction Normal [facility] Progress Note-Physicianon Progress Note-Physician Normal [facility] Comment on above: Result Comment: Elec tronically Signed By: Anu MANZANO\.br\Date and Time Signed: 11/25/22 14:33 EDT\.br\Electronically Co-Signed By: Nesha SHANKAR MD\.br\Date and Time Co-Signed: 11/25/22 14:49 EDT Transferrinon 11-25-2022 Transferrin [Mass/Vol] 186 mg/dL Low 200-370 [facility] Comment on above: Order Comment: Trans micheline order added by Discern Rule: gl_ftmc_add_iron_trans . Performed By: #### 2 698985, 5015564, 91262530, 9860786, 5452411, 1401612, 0278488 ####[facility] [address] [place] [address] U Drug Screenon 11-25-2022 Opiates Screen Ql (U) Positive Abnormal Negative [facility] Comment on above: Result Comment: Nega tive Cutoff: <300 ng/mL Performed By: #### 2 655317 ####[facility] [address] [place] [address] Amphetamines Screen method >1000 ng/mL Ql (U) Negative Normal Negative [facility] Comment on above: Result Comment: Nega tive Cutoff: <1000 ng/mL Performed By: #### 2 500751 ####[facility] [address] [place] [address] Barbiturates Screen Ql (U) Negative Normal Negative [facility] Comment on above: Result Comment: Nega tive Cutoff: <200 ng/mL Performed By: #### 2 201880 ####[facility] [address] [place] [address] Benzodiazepines Ql (U) Negative Normal Negative [facility] Comment on above: Result Comment: Nega tive Cutoff: <200 ng/mL Performed By: #### 2 491522 ####[facility] [address] [place] [address] Cocaine Ql (U) Negative Normal Negative [facility] Comment on above: Result Comment: Nega tive Cutoff: <300 ng/mL Performed By: #### 2 714113 ####[facility] [address] [place] [address] Phencyclidine Screen method >25 ng/mL Ql (U) Negative Normal Negative [facility] Comment on above: Result Comment: Nega tive Cutoff: <25 ng/mLThese drug screen results are to be used for medical (i.e., treatment) purposes only. Unconfirmed drug screening results must not be used for non-medical purposes (e.g., employment testing, legal testing). Performed By: #### 2 350853 ####[address] [address] Tetrahydrocannabinol Screen method >50 ng/mL Ql (U) Negative Normal Negative [facility] Comment on above: Result Comment: Nega tive Cutoff: <50 ng/mL Performed By: #### 2 255687 ####[address] [place] [address] UA With Cult Reflexon 2022 Bilirubin Ql (U) Negative Normal Negative [facility] Comment on above: Performed By: #### 1 [id number] ####[facility] [address] [place] [address] Clarity (U) CLEAR Normal Clear [facility] Comment on above: Performed By: #### 1 [id number] ####[address] [place] [address] Color (U) YELLOW Normal Yellow [facility] Comment on above: Performed By: #### 1 1716198 ####[address] [place] [address] Epithelial cells.squamous LM.HPF (Urine sed) [#/Area] 0-2 Normal 0-2 [facility] Comment on above: Performed By: #### 1 [id number] ####[facility] [address] [place] [address] Glucose Test strip (U) [Mass/Vol] Negative Normal Negative [facility] Comment on above: Performed By: #### 1 [id number] ####[address] [address] Hemoglobin Ql (U) Negative Normal Negative [facility] Comment on above: Performed By: #### 1 9801444 ####[address] [address] Ketones (U) [Mass/Vol] Negative Normal Negative [facility] Comment on above: Performed By: #### 1 7829207 ####[address] [address] [place].plasma/[place] .RBC (Bld) [Mass ratio] 0-3 Normal 0-3 [facility] Comment on above: Performed By: #### 1 6666249 ####[address] [address] Nitrite Ql (U) Negative Normal Negative [facility] Comment on above: Performed By: #### 1 4930872 ####[address] [address] pH (U) 6.0 [pH] Invalid Interpretation Code 5.0-9.0 [facility] Comment on above: Performed By: #### 1 [id number] ####[address] [address] Protein (U) [Mass/Vol] Negative Normal Negative [facility] Comment on above: Performed By: #### 1 9087464 ####[address] [address] Specific gravity (U) [Rel density] 1.010 Invalid Interpretation Code 1.005-1.030 [facility] Comment on above: Performed By: #### 1 0150896 ####[facility] [address] [place] [address] Type of Urine collection method Clean Catch Normal [facility] Comment on above: Performed By: #### 1 6432347 ####[facility] [address] [place] [address] Urobilinogen Qn (U) 0.2 {Papa'U}/dL Normal 0.0-1.0 [facility] Comment on above: Performed By: #### 1 4950829 ####[facility] [address] [place] [address] WBC Auto Ql (U) TRACE Abnormal Negative [facility] Comment on above: Performed By: #### 1 0168511 ####[facility] [address] [place] [address] WBC LM.HPF (Urine sed) [#/Area] 0-5 Normal 0-5 [facility] Comment on above: Performed By: #### 1 8986949 ####[facility] [address] [place] [address] URINALYSISOrdered By: David Gasca on 11-25-2022 Bilirubin Ql (U) Negative (11/25/22 3:09 AM) Normal Negative [facility] UA Auto SS Clarity (U) Clear (11/25/22 3:09 AM) Normal Clear [facility] UA Auto SS Color (U) Yellow (11/25/22 3:09 AM) Normal Yellow [facility] UA Auto SS Epithelial cells.squamous LM.HPF (Urine sed) [#/Area] 0-2 /HPF Normal 0-2/HPF [facility] UA Aut o SS Glucose Test strip (U) [Mass/Vol] Negative (11/25/22 3:09 AM) Normal Negative [facility] UA Auto SS Hemoglobin Ql (U) Negative (11/25/22 3:09 AM) Normal Negative [facility] UA Auto SS Ketones (U) [Mass/Vol] Negative (11/25/22 3:09 AM) Normal Negative [facility] UA Auto SS [place].plasma/[place] .RBC (Bld) [Mass ratio] 0-3 /HPF Normal 0-3/HPF [facility] UA Auto SS Nitrite Ql (U) Negative (11/25/22 3:09 [...] Desc Clean Catch (11/25/22 3:09 AM) Normal [facility] UA Auto SS Urobilinogen Qn (U) 0.2958922 {Papa'U}/dL Normal 0.0 - 1.0 EU/dL [facility] UA Auto SS WBC Auto Ql (U) Trace *ABN* (11/25/22 3:09 AM) Invalid Interpretation Code Negative [facility] UA Auto SS WBC LM.HPF (Urine sed) [#/Area] 0-5 /HPF Normal 0-5/HPF [facility] UA Auto SS Vit B12on 11-25-2022 Cobalamin (Vitamin B12) [Mass/Vol] 212 pg/mL Normal 50-1500 [facility] Comment on above: Performed By: #### 2 103547, 9150813, 75862481, 42458568, 4537613, 6646744, 8251196, 5703005, 2849909 ####[facility] [address] [place] [address] XR Hip 1 View Right + Pelvis on 11-25-2022 XR Hip 1 View Right + Pelvis Normal [facility] eGFRon 11-25-2022 GFR/1.73 sq M.predicted among non-blacks MDRD (S/P/Bld) [Vol rate/Area] 61 mL/min/1.73 m2 Normal >=59 [facility] Comment on above: Order Comment: Order added by Discern Expert. Result Comment: [facility] Architect marquez kidney disease could be indicated at eGFR's of less than 60 mL/min/1.73m2. Kidney failure is indicated at less than 15 mL/min/1.73m2. Performed By: #### 2 980650, 6308257, 02043718, 3316448, 8445370, 0184523, 7573756 ####[facility] [address] [place] [address] ABO/Rhon 11-24-2022 ABO/Rh Positive Invalid Interpretation Code [facility] Comment on above: Performed By: #### 1 7555584, 9840392, 72848679, 05126708 ####[facility] [address] [place] [address] ABO/Rh History Checkon 11-24 ABO/Rh History Check Verified Hx Blood Type Normal [facility] Comment on above: Performed By: #### 1 2823696, 7164854, 84058070, 95404777 ####[address] [address] ABSCon 11-24-2022 ABSC Gel Interp Negative Normal [facility] Comment on above: Performed By: #### 1 2513376, 1709226, 18942112, 84235175 ####[facility] [address] [place] [address] Auto Diffon 11-24-2022 Basophils/100 WBC (Bld) 0.3 % Normal 0.0-2.0 [facility] Comment on above: Order Comment: Order Added by Discern Expert. Performed By: #### 1 5935474, 3051301, 2989269, 63750194, 2793897, 11617422, 7583636, 3345889, 584293852, 3960515, 7967889 ####[address] [place] [address] Basophils/Leukocytes Auto (Bld) [Pure # fraction] 0.0 E9/L Normal 0.0-0.2 [facility] Comment on above: Order Comment: Order Added by Discern Expert. Performed By: #### 1 5380654, 7110853, 5292943, 37645851, 7248952, 24402709, 3801069, 7056603, 670487856, 5581369, 6193359 ####[facility] [address] [place] [address] Eosinophils/100 WBC (Bld) 3.2 % Normal 0.0-8.0 [facility] Comment on above: Order Comment: Order Added by Discern Expert. Performed By: #### 1 5454671, 8271908, 0101703, 75670920, 8836973, 08787745, 0759888, 8122473, 998876385, 6587507, 1117572 ####[address] [place] [address] Eosinophils/Leukocytes Auto (Bld) [Pure # fraction] 0.2 E9/L Normal 0.0-0.5 [facility] Comment on above: Order Comment: Order Added by Discern Expert. Performed By: #### 1 5061226, 6364439, 3148734, 46821926, 2247840, 93198851, 4779555, 8246329, 556502561, 3369453, 9990675 ####[address] [address] Lymphocytes/100 WBC (Bld) 27.3 % Normal 14.0-50.0 [facility] Comment on above: Order Comment: Order Added by Discern Expert. Performed By: #### 1 3445538, 9310426, 4488064, 22271893, 9486977, 42692858, 2996008, 0436798, 333479312, 1290808, 1106018 ####[address] [place] [address] Lymphocytes/Leukocytes Auto (Bld) [Pure # fraction] 1.7 E9/L Normal 1.0-4.0 [facility] Comment on above: Order Comment: Order Added by Discern Expert. Performed By: #### 1 9860050, 9001308, 4086951, 06784425, 3020921, 17248471, 8548283, 9906281, 084385403, 8320247, 8521754 ####[address] [place] [address] Monocytes/100 WBC (Bld) 12.1 % Normal 4.0-14.0 [facility] Comment on above: Order Comment: Order Added by Discern Expert. Performed By: #### 1 6417187, 9097792, 0818896, 60027442, 1706324, 87174034, 5416088, 1475556, 913990997, 8012865, 5105411 ####[facility] [address] [place] [address] Monocytes/Leukocytes Auto (Bld) [Pure # fraction] 0.8 E9/L Normal 0.2-1.0 [facility] Comment on above: Order Comment: Order Added by Discern Expert. Performed By: #### 1 0534534, 7038707, 7113546, 70718420, 1983735, 07219186, 2610616, 0135248, 268961720, 1118370, 0953924 ####[address] [place] [address] Neutrophils/100 WBC (Bld) 57.1 % Normal 36.0-75.0 [facility] Comment on above: Order Comment: Order Added by Discern Expert. Performed By: #### 1 9766961, 0001031, 4238442, 13850745, 5817458, 81741169, 4318757, 1382355, 752048699, 0858524, 3143658 ####[address] [place] [address] Neutrophils/Leukocytes Auto (Bld) [Pure # fraction] 3.7 E9/L Normal 2.0-7.5 [facility] Comment on above: Order Comment: Order Added by Discern Expert. Performed By: #### 1 6418490, 8587646, 6653538, 36298699, 7137506, 90657906, 0986402, 8987565, 212535313, 1717938, 2169211 ####[address] [place] [address] BLOOD BANKOrdered By: David Gasca on 11-24-2022 ABO/Rh Interp Positive Invalid Interpretation Code [facility] BB Subsection ABSC Gel Interp Negative (11/24/22 12:57 AM) Normal [facility] BB Subsection BMPon 11-24-2022 Creatinine [Mass/Vol] 1.1 mg/dL Normal 0.5-1.3 [facility] Comment on above: Performed By: #### 1 0043601, 0848477, 2047196, 65963591, 8644740, 58294164, 0992991, 4999126, 118038785, 8687210, 1534081 ####[facility] [address] [place] [address] Urea nitrogen [Mass/Vol] 13 mg/dL Normal 5-21 [facility] Comment on above: Performed By: #### 1 0398969, 5277980, 0890359, 72064104, 2143480, 07879398, 0398398, 6714380, 394703320, 9807918, 7414356 ####[facility] [address] [place] [address] Urea nitrogen/Creatinine [Mass ratio] 12 No Units Normal 10-20 [facility] Comment on above: Performed By: #### 1 2389048, 6328990, 6815306, 66901721, 5833236, 19000644, 9381528, 6922985, 686912938, 0176457, 8954017 ####[facility] [address] [place] [address] Anion gap [Moles/Vol] 9 mmol/L Normal 6-16 [facility] Comment on above: Performed By: #### 1 0761106, 3266369, 3601025, 68044691, 3777317, 19916317, 8446802, 4504844, 041182829, 3510867, 3828815 ####[facility] [address] [place] [address] Calcium [Mass/Vol] 9.1 mg/dL Normal 8.9-11.1 [facility] Comment on above: Performed By: #### 1 3212588, 0331517, 6307143, 78594564, 5507554, 97777311, 9107471, 6111997, 964574190, 8027438, 4109249 ####[facility] [address] [place] [address] Chloride [Moles/Vol] 111 mmol/L Normal 101-111 [facility] Comment on above: Performed By: #### 1 5640319, 4542622, 2053311, 83112294, 6561969, 80248294, 3570798, 5029148, 391043042, 1335764, 0153154 ####[facility] [address] [place] [address] CO2 [Moles/Vol] 24 mmol/L Normal 21-31 [facility] Comment on above: Performed By: #### 1 0670493, 4404436, 6253490, 86336190, 9328749, 94211513, 4272441, 6892335, 354323930, 8855336, 2214895 ####[facility] [address] [place] [address] Glucose [Mass/Vol] 183 mg/dL Normal 55-199 [facility] Comment on above: Result Comment: If t his glucose result represents a fasting glucose, interpretation should refer to the following reference range: 55-99 mg/dL Performed By: #### 1 8888918, 1130512, 9577762, 46073518, 0018706, 04783067, 3291130, 5468719, 599022517, 0466320, 6844554 ####[facility] [address] [place] [address] Potassium [Moles/Vol] 3.7 mmol/L Normal 3.5-5.3 [facility] Comment on above: Performed By: #### 1 4338942, 4990521, 7390513, 92733284, 2601329, 43164032, 0128526, 8349820, 396557961, 0258664, 4946818 ####[facility] [address] [place] [address] Sodium [Moles/Vol] 140 mmol/L Normal 135-145 [facility] Comment on above: Performed By: #### 1 3774470, 9122243, 8846047, 76586478, 1973835, 41566000, 3875136, 9645365, 371496723, 6351833, 4326262 ####[facility] [address] [place] [address] Blood Bank ID#on 11-24-2022 BBID# [id number] Invalid Interpretation Code [facility] Comment on above: Performed By: #### 1 9687875, 0647533, 92722937, 78829706 ####[address] [place] [address] CBC w/ Auto Diffon Erythrocyte distribution width (RBC) [Ratio] 13.4 % Normal 10.9-14.2 [facility] Comment on above: Performed By: #### 1 0628074, 6550471, 8525867, 29134125, 9030003, 55807986, 6513536, 2000974, 547291495, 3735425, 8150880 ####[address] [place] [address] Hematocrit (Bld) [Volume fraction] 32.8 % Low 34.0-46.0 [facility] Comment on above: Performed By: #### 1 4421381, 3985742, 2022905, 37549416, 9242248, 54854982, 8049135, 3966308, 368669238, 1567107, 1578803 ####[facility] [address] [place] [address] Hemoglobin (Bld) [Mass/Vol] 10.7 g/dL Low 12.0-16.0 [facility] Comment on above: Performed By: #### 1 1615724, 8482809, 3141207, 87362986, 5533260, 05719542, 2861064, 3506267, 338377067, 1915781, 3393103 ####[facility] [address] [place] [address] MCH (RBC) [Entitic mass] 29.2 pg Normal 27.0-34.0 [facility] Comment on above: Performed By: #### 1 2484754, 4572494, 9748118, 03021072, 8645587, 72941761, 0033749, 8044782, 954137222, 2306357, 1434040 ####[facility] [address] [place] [address] MCHC (RBC) [Mass/Vol] 32.7 g/dL Normal 31.4-36.0 [facility] Comment on above: Performed By: #### 1 6536432, 2752315, 8253196, 18944453, 3212114, 63131121, 5205220, 2406578, 632125805, 4431389, 0407951 ####[address] [address] MCV (RBC) [Entitic vol] 89.2 fL Normal 80.0-100.0 [facility] Comment on above: Performed By: #### 1 9032965, 4912659, 8721279, 67297253, 6404828, 73361088, 1115969, 3702604, 357198491, 2943902, 6345704 ####[facility] [address] [place] [address] Platelet mean volume (Bld) [Entitic vol] 8.8 fL Normal 6.4-10.8 [facility] Comment on above: Performed By: #### 1 4939296, 2743518, 2236193, 10008366, 7873788, 86190160, 5133192, 2541620, 785240030, 4915631, 5839053 ####[address] [address] Platelets (Bld) [#/Vol] 139.0 E9/L Low 150.0-500.0 [facility] Comment on above: Performed By: #### 1 2249711, 8571686, 7564860, 20459825, 6233581, 40531799, 4970387, 6263796, 099448859, 9567442, 9188067 ####[facility] [address] [place] [address] RBC (Bld) [#/Vol] 3.7 E12/L Low 4.3-5.9 [facility] Comment on above: Performed By: #### 1 7485319, 3010358, 6960469, 26130937, 5199050, 09071733, 4004899, 5774313, 801944226, 2804945, 5030905 ####[facility] [address] [place] [address] WBC corrected for nucl RBC Auto (Bld) [#/Vol] 6.4 E9/L Normal 4.0-11.0 [facility] Comment on above: Performed By: #### 1 0039971, 1225059, 1157950, 22978111, 3105659, 13547758, 8446744, 6506498, 401265622, 4124170, 3413769 ####[facility] [address] [place] [address] CHEMISTRYOrdered By: SYSTEM SYSTEM on 11-24-2022 Cobalamin (Vitamin B12) [Mass/Vol] 212 pg/mL Normal 50 - 1500 pg/mL [facility] Remisol Ferritin [Mass/Vol] 51 ng/mL Normal 11 - 307 ng/mL [facility] Remisol Folate [Mass/Vol] 5.4 ng/mL Low >=6.7ng/mL [facility] Re misol Free T4 [Mass/Vol] 1.23 ng/dL Normal 0.58 - 1.64 ng/dL [facility] Remisol Iron [Mass/Vol] 29 ug/dL Low 35 - 153 mcg/dL [facility] Remisol Iron binding capacity [Mass/Vol] 313 ug/dL Normal 250 - 400 mcg/dL [facility] Remisol LDH [Catalytic activity/Vol] 158 [iU]/d Normal 93 - 218 Int._Unit/L [facility] Remisol Transferrin [Mass/Vol] 224 mg/dL Normal 200 - 370 mg/ dL [facility] Remisol TSH Qn 0.25 m[IU]/L Low 0.34 - 5.60 mcIU/mL [facility] Remisol Albumin [Mass/Vol] 3.6 g/dL Normal 3.3 - 5.0 gm/dL [facility] Remisol Albumin/Globulin [Mass ratio] 1.1 {ratio} Normal 1.1 - 2.2 [facility] Remisol ALP [Catalytic activity/Vol] 61 [iU]/d Normal 21 - 98 Int._Unit/L [facility] Remisol ALT No additional P-5'-P [Catalytic activity/Vol] 15 [iU]/d Normal 6 - 46 Int._Unit/L [facility] Remisol AST [Catalytic activity/Vol] 19 [iU]/d Normal 5 - 43 Int._Unit/L [facility] Remisol Bilirubin [Mass/Vol] 0.6 mg/dL Normal 0.0 - 1.1 mg/dL [facility] Remisol Bilirubin.direct [Mass/Vol] 0.1 mg/dL [...] 6.8 g/dL Normal 6.0 - 7.8 gm/dL [facility] Remisol Troponin I.cardiac [Mass/Vol] 3.50 pg/mL Low 10.10 - 27.10 pg/mL [facility] Remisol TSH Qn 0.51 m[IU]/L Normal 0.34 - 5.60 mcIU/mL [facility] Remisol CHEMISTRYOrdered By: Sarthak Stock on 11-24-2022 HbA1c (Bld) [Mass fraction] 6.3 % High <=5.9% [facility] ChemAutoSS COAGULATIONOrdered By: David Gasca on 11-24-2022 aPTT Coag (PPP) [Time] 30.2 s Normal 25.1 - 36.5 second(s) [facility] Auto Coag INR Coag (PPP) [Relative time] 1.0 {INR} Invalid Interpretation Code [facility] Auto Coag PT Coag (PPP) [Time] 11.7 s Normal 9.4 - 1 2.5 second(s) [facility] Auto Coag CT Pelvis w/o Contraston CT Pelvis w/o Contrast Normal [facility] Capillary Glucose POCon 10-30 Glucose [Mass/Vol] 119 mg/dL High 55-99 [facility] Comment on above: Result Comment: Fausto CHAUDHARY Performed By: #### 2 92901387 ####[facility] [address] [place] [address] Glucose [Mass/Vol] 115 mg/dL High 55-99 [facility] Comment on above: Result Comment: Fausto CHAUDHARY Performed By: #### 2 61313247 ####[facility] [address] [place] [address] Glucose [Mass/Vol] 114 mg/dL High 55-99 [facility] Comment on above: Result Comment: Fausto CHAUDHARY Performed By: #### 2 33838864 ####[facility] [address] [place] [address] Consent for Treatmenton 10-30 Consent for Treatment [id number]:[id number] Normal [facility] Consultation Noteon 11-25-19 Consultation Note Normal [facility] Comment on above: Result Comment: Elec tronically Signed By: Joaquim Rice DO.br\Date and Time Signed: 11/24/22 17:19 EDT ED Clinical Summaryon 2022 ED Clinical Summary Normal [facility] ED Note-Physicianon 11-25-19 ED Note-Physician Normal [facility] Comment on above: Result Comment: Elec tronically Signed By: Hari Martinez DO\.br\Date and Time Signed: 11/24/22 03:32 EDT ED Patient Education Noteon 11-24-2022 ED Patient Education Note Normal [facility] ED Patient Summaryon 023 ED Patient Summary Normal [facility] ED Traumaon 11-24-2022 ED Trauma [id number]:[id number] Normal [facility] Ethanolon 11-24-2022 Ethanol [Mass/Vol] mg/dL Normal <=7 [facility] Comment on above: Performed By: #### 2 348495 ####[facility] [address] [place] [address] Free T4on 11-24-2022 Free T4 [Mass/Vol] 1.23 ng/dL Normal 0.58-1.64 [facility] Comment on above: Order Comment: Free T4 added by Discern Rule due to a TSH result of <0.34 or >5.60. Performed By: #### 2 929413, 7434217, 90994960, 03007372, 5536924, 1623566, 1427185, 3254050, 2814474 ####[facility] [address] [place] [address] HEMATOLOGYOrdered By: Kirstin King on 11-24-2022 Reticulocytes/100 RBC (Bld) 0.9 % Normal 0.5 - 1.5 % [facility] HemeAutoSS Comment on above: Result Comment: This Reticulocyte Count Has Been Corrected For Anemia Hep Func Panelon 11-24-2022 Albumin [Mass/Vol] 3.6 g/dL Normal 3.3-5.0 [facility] Comment on above: Performed By: #### 1 6570914, 0153077, 3920822, 52373241, 7788099, 88196514, 8493391, 1342486, 781355860, 7999405, 0805510 ####[facility] [address] [place] [address] Albumin/Globulin (S) [Mass conc ratio] 1.1 Normal 1.1-2.2 [facility] Comment on above: Performed By: #### 1 4970376, 8942355, 6014918, 85683814, 2820741, 84528716, 9677694, 5002050, 828899544, 9032805, 7959402 ####[facility] [address] [place] [address] ALP [Catalytic activity/Vol] 61 Int._Unit/L Normal 21-98 [facility] Comment on above: Performed By: #### 1 5136488, 5684234, 9125955, 48161816, 4694816, 97232271, 8206524, 8837712, 499027214, 5314207, 8227195 ####[facility] [address] [place] [address] ALT No additional P-5'-P [Catalytic activity/Vol] 15 Int._Unit/L Normal 6-46 [facility] Comment on above: Performed By: #### 1 1860524, 8127326, 3071730, 24098426, 5406583, 45293426, 3771397, 4701448, 780408719, 4000390, 6972361 ####[address] [place] [address] AST [Catalytic activity/Vol] 19 Int._Unit/L Normal 5-43 [facility] Comment on above: Performed By: #### 1 4557796, 3217992, 7409924, 62383807, 4502572, 32189793, 3282046, 2018136, 398031891, 0258995, 7949080 ####[facility] [address] [place] [address] Bilirubin [Mass/Vol] 0.6 mg/dL Normal 0.0-1.1 [facility] Comment on above: Performed By: #### 1 3981134, 2807414, 8184586, 27560090, 5344644, 29893735, 5977246, 9268725, 434203962, 1740078, 2761754 ####[facility] [address] [place] [address] Bilirubin.direct [Mass/Vol] 0.1 mg/dL Normal 0.1-0.4 [facility] Comment on above: Performed By: #### 1 3092089, 0635845, 6534771, 97747778, 1176453, 21095870, 9385040, 8488489, 903537211, 0418081, 1899987 ####[address] [place] [address] Bilirubin.indirect [Mass or moles/Vol] 0.5 mg/dL Normal 0.1-0.9 [facility] Comment on above: Performed By: #### 1 7926725, 4652325, 8553155, 80013746, 9664077, 40148198, 4262398, 9141596, 867920456, 0824382, 5552518 ####[address] [address] Globulin (S) [Mass/Vol] 3.2 g/dL Normal 1.4-4.0 [facility] Comment on above: Performed By: #### 1 7713077, 3358755, 2446800, 80090439, 7330694, 46497515, 1158587, 0333440, 247752677, 6542708, 3577324 ####[address] [address] Protein [Mass/Vol] 6.8 g/dL Normal 6.0-7.8 [facility] Comment on above: Performed By: #### 1 8229507, 5928064, 6861281, 92136662, 8432433, 32341385, 9536611, 3232620, 892043973, 6618690, 0940861 ####[address] [place] [address] Interdisciplinary Note - Hardeep e Manageron 11-24-2022 Interdisciplinary Note - 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 Normal [facility] Comment on above: Result Comment: Elec tronically Signed By: Kirstin Meyer.deng\Date and Time Signed: 11/24/22 12:23 EDT Ironon 11-24-2022 Iron [Mass/Vol] 29 microgram/dL Low 35-153 [facility] Comment on above: Performed By: #### 2 717811, 8093457, 46980397, 32885555, 6159695, 4821971, 7793766, 1179015, 2355885 ####[facility] [address] [place] [address] LDHon 11-24-2022 LDH [Catalytic activity/Vol] 158 Int._Unit/L Normal 93-218 [facility] Comment on above: Performed By: #### 2 850767, 2777008, 38864686, 25634502, 9890213, 0178927, 2789128, 3721058, 1253206 ####[facility] [address] [place] [address] Lactic Acidon 11-24-2022 Lactate [Mass/Vol] 1.1 mmol/L Normal 0.5-2.2 [facility] Comment on above: Performed By: #### 1 6386428, 2662834, 7989143, 73118623, 6201995, 37053512, 3605180, 0271129, 468738706, 9460370, 3461970 ####[facility] [address] [place] [address] Lipase Levelon 11-24-2022 Lipase [Catalytic activity/Vol] 32 U/L Normal 13-58 [facility] Comment on above: Performed By: #### 1 [id number], [id number], 3731441, 79371449, 1594816, 23989953, 9582045, 0635341, [id number], 6143228, 1637359 ####[facility] [address] [place] [address] Monitor Recordon 11-24-2022 Monitor Record [id number]#1.00CD:12 7 Normal [facility] Monitor Record [id number]#1.00CD:12 7 Normal [facility] Monitor Record [id number]#1.00CD:12 7 Normal [facility] Monitor Record [id number]#1.00CD:12 7 Normal [facility] PT & PTTon 11-24-2022 aPTT Coag (PPP) [Time] 30.2 second(s) Normal 25.1-36.5 [facility] Comment on above: Result Comment: Para [...] the same coagulation reagent and instrumentation as [facility]. Currently there are no coagulation studies available worldwide for children to 14 days, and no normal ranges. Heparin therapeutic range (represented by Anti-Factor Xa activity of 0.2 - 0.4 U/mL) corresponds to PTT of 56.6 - 109.0 sec. Performed By: #### 1 [id number], 1777292, 6928650, 50479741, 8932354, 63043047, 7121634, 7942823, 563000961, 7768164, 5258015 ####[facility] [address] [place] [address] INR Coag (PPP) [Relative time] 1.0 {INR} Invalid Interpretation Code [facility] Comment on above: Result Comment: INR results are specifically intended to assess patients stabilized on long-term Anticoagulation therapy suggested INR?s ?Less Intensive Anticoagulation? 2.0 ? 3.0Conventional Range 3.0 ? 4.5 Performed By: #### 1 2611107, 3393859, 0492746, 64595023, 3220537, 45224146, 2792134, 7822363, 258623315, 9224812, 4859696 ####[facility] [address] [place] [address] PT Coag (PPP) [Time] 11.7 second(s) Normal 9.4-12.5 [facility] Comment on above: Result Comment: 15 [...] the same coagulation reagent and instrumentation as [facility]. Currently there are no coagulation studies available worldwide for children to 14 days, and no normal ranges. Performed By: #### 1 8484805, 9956031, 2499037, 39361924, 9591168, 35985635, 1487729, 8941567, 894615343, 7652443, 5422730 ####[facility] [address] [place] [address] Pre-Arrival Noteon Pre-Arrival Note Normal [facility] Progress Note-Physicianon Progress Note-Physician Normal [facility] Comment on above: Result Comment: Elec tronically Signed By: Anu MANZANO\.br\Date and Time Signed: 11/24/22 14:14 EDT\.br\Electronically Co-Signed By: Cordell Grossman DO.br\Date and Time Co-Signed: 11/24/22 15:36 EDT RAD - Preliminary Cat Scan R eporton 11-24-2022 RAD - Preliminary Cat Scan Report [id number]:12 7 Normal [facility] Retic Counton 11-24-2022 Reticulocytes/100 RBC (Bld) 0.9 % Normal 0.5-1.5 [facility] Comment on above: Result Comment: This Reticulocyte Count Has Been Corrected For Anemia Performed By: #### 2 890547, 4201348, 12838804, 14352550, 8852973, 8846617, 9361606, 6119418, 7606837 ####[facility] [address] [place] [address] TIBC Calculatedon 11-24-2022 Iron binding capacity [Mass/Vol] 313 microgram/dL Normal 250-400 [facility] Comment on above: Order Comment: Becka nt receiving patient care, will check back later. [email or web address] 11/24/2022 15:04:45 EDT Performed By: #### 2 766044, 8094875, 38233433, 42804972, 5933611, 9446038, 1244907, 1425114, 5968714 ####[facility] [address] [place] [address] Transferrin [Mass/Vol] 224 mg/dL Normal 200-370 [facility] Comment on above: Order Comment: Becka nt receiving patient care, will check back later. [email or web address] 11/24/2022 15:04:45 EDT Performed By: #### 2 671139, 1182576, 81468810, 32011338, 5795349, 6902383, 9568965, 3651499, 3792882 ####[facility] [address] [place] [address] TSH With T4fr Reflexon 11-24 TSH Qn 0.25 m[IU]/L Low 0.34-5.60 [facility] Comment on above: Performed By: #### 2 993233, 4245072, 66567130, 10857113, 0850355, 0389841, 5774479, 9163137, 9252568 ####[facility] [address] [place] [address] TSH Qn 0.51 m[IU]/L Normal 0.34-5.60 [facility] Comment on above: Performed By: #### 1 8156210, 2824949, 9804092, 64577433, 0568958, 15203286, 7956234, 0983345, 317215750, 8426199, 4607312 ####[facility] [address] [place] [address] Troponinon 11-24-2022 Troponin I.cardiac [Mass/Vol] 3.50 pg/mL Low 10.10-27.10 [facility] Comment on above: Result Comment: The 95% CI (Confidence Interval) PPV (Positive Predictive Value) for myocardial infarction in females is 38 pg/mL, in males 51 pg/mL. The results should be used in conjunction with clinical conditions of myocardial infarction.(Access High Sensitivity Troponin I Instructions For Use, [employer], October 2017) Performed By: #### 1 4247769, 9892202, 5789772, 27529871, 6481044, 07197395, 7193222, 1017033, 804313658, 3328156, 8029028 ####[facility] [address] [place] [address] XR Chest Single Viewon 11-24 XR Chest Single View Normal [facility] XR Hip 1 View Right + Pelvis on 11-24-2022 XR Hip 1 View Right + Pelvis Normal [facility] eGFRon 11-24-2022 GFR/1.73 sq M.predicted among non-blacks MDRD (S/P/Bld) [Vol rate/Area] 55 mL/min/1.73 m2 Low >=59 [facility] Comment on above: Order Comment: Order added by Discern Expert. Result Comment: Uc Architect marquez kidney disease could be indicated at eGFR's of less than 60 mL/min/1.73m2. Kidney failure is indicated at less than 15 mL/min/1.73m2. Performed By: #### 1 0006885, 9718971, 0867256, 27922254, 0374882, 03504191, 2640618, 6214632, 768515945, 7837848, 8003453 ####[facility] [address] [place] [address] Auto Diffon 10-02-2022 Basophils/100 WBC (Bld) 0.5 % Normal 0.0-2.0 [facility] Comment on above: Order Comment: Order Added by Discern Expert. Performed By: #### 2 873673, 82485571, 7344850, 9192918, 4518340, 3703263 ####[address] [address] Basophils/Leukocytes Auto (Bld) [Pure # fraction] 0.0 E9/L Normal 0.0-0.2 [facility] Comment on above: Order Comment: Order Added by Discern Expert. Performed By: #### 2 908110, 34115524, 3190397, 5040371, 6777482, 5580443 ####[address] [address] Eosinophils/100 WBC (Bld) 1.2 % Normal 0.0-8.0 [facility] Comment on above: Order Comment: Order Added by Discern Expert. Performed By: #### 2 335468, 97670209, 2911710, 4451004, 4616854, 9412344 ####[address] [address] Eosinophils/Leukocytes Auto (Bld) [Pure # fraction] 0.1 E9/L Normal 0.0-0.5 [facility] Comment on above: Order Comment: Order Added by Discern Expert. Performed By: #### 2 193409, 62153064, 0117470, 9466389, 6905404, 1962543 ####[address] [address] Lymphocytes/100 WBC (Bld) 19.9 % Normal 14.0-50.0 [facility] Comment on above: Order Comment: Order Added by Discern Expert. Performed By: #### 2 748169, 62037793, 5786360, 5556832, 4047166, 1809731 ####[address] [address] Lymphocytes/Leukocytes Auto (Bld) [Pure # fraction] 1.5 E9/L Normal 1.0-4.0 [facility] Comment on above: Order Comment: Order Added by Discern Expert. Performed By: #### 2 407725, 02177278, 6939895, 6084698, 6313496, 5505151 ####[address] [address] Monocytes/100 WBC (Bld) 12.7 % Normal 4.0-14.0 [facility] Comment on above: Order Comment: Order Added by Discern Expert. Performed By: #### 2 561475, 29929253, 9363894, 7695076, 4696155, 6747347 ####[address] [address] Monocytes/Leukocytes Auto (Bld) [Pure # fraction] 1.0 E9/L Normal 0.2-1.0 [facility] Comment on above: Order Comment: Order Added by Discern Expert. Performed By: #### 2 347436, 67121664, 7657846, 9996476, 7763369, 7877888 ####[address] [address] Neutrophils/100 WBC (Bld) 65.7 % Normal 36.0-75.0 [facility] Comment on above: Order Comment: Order Added by Discern Expert. Performed By: #### 2 790756, 85650708, 9543481, 9647557, 5034227, 6298327 ####[address] [address] Neutrophils/Leukocytes Auto (Bld) [Pure # fraction] 5.1 E9/L Normal 2.0-7.5 [facility] Comment on above: Order Comment: Order Added by Discern Expert. Performed By: #### 2 858744, 93614915, 2926741, 7289706, 9269357, 7324753 ####[address] [place] [address] BMPon 10-02-2022 Creatinine [Mass/Vol] 1.1 mg/dL Normal 0.5-1.3 [facility] Comment on above: Performed By: #### 2 453450, 08135052, 4415937, 6649912, 0574198, 2470512 ####[facility] [address] [place] [address] Urea nitrogen [Mass/Vol] 16 mg/dL Normal 5-21 [facility] Comment on above: Performed By: #### 2 655974, 92196987, 5900365, 6934948, 7137355, 2127922 ####[facility] [address] [place] [address] Urea nitrogen/Creatinine [Mass ratio] 14 No Units Normal 10-20 [facility] Comment on above: Performed By: #### 2 089382, 26825271, 2974874, 9290310, 4240730, 2694713 ####[facility] [address] [place] [address] Anion gap [Moles/Vol] 15 mmol/L Normal 6-16 [facility] Comment on above: Performed By: #### 2 787109, 45257508, 3232801, 5552440, 2505105, 3120622 ####[facility] [address] [place] [address] Calcium [Mass/Vol] 9.7 mg/dL Normal 8.9-11.1 [facility] Comment on above: Performed By: #### 2 346272, 52752725, 6456879, 4426631, 4821345, 0464802 ####[facility] [address] [place] [address] Chloride [Moles/Vol] 107 mmol/L Normal 101-111 [facility] Comment on above: Performed By: #### 2 143681, 92975522, 4556651, 5935648, 4266966, 9691993 ####[facility] [address] [place] [address] CO2 [Moles/Vol] 19 mmol/L Low 21-31 [facility] Comment on above: Performed By: #### 2 371121, 18999543, 6336960, 6923141, 3104848, 3717883 ####[facility] [address] [place] [address] Glucose [Mass/Vol] 186 mg/dL Normal 55-199 [facility] Comment on above: Result Comment: If t his glucose result represents a fasting glucose, interpretation should refer to the following reference range: 55-99 mg/dL Performed By: #### 2 674742, 82218187, 1449708, 6534167, 7589434, 2145454 ####[facility] [address] [place] [address] Potassium [Moles/Vol] 3.1 mmol/L Low 3.5-5.3 [facility] Comment on above: Performed By: #### 2 651900, 73600897, 6726245, 5191583, 4911883, 8872657 ####[facility] [address] [place] [address] Sodium [Moles/Vol] 138 mmol/L Normal 135-145 [facility] Comment on above: Performed By: #### 2 324901, 72472301, 7112124, 5286536, 4983008, 4875879 ####[facility] [address] [place] [address] CBC w/ Auto Diffon 3 Erythrocyte distribution width (RBC) [Ratio] 13.4 % Normal 10.9-14.2 [facility] Comment on above: Performed By: #### 2 869702, 52826737, 5090084, 3992310, 6994810, 4018343 ####[facility] [address] [place] [address] Hematocrit (Bld) [Volume fraction] 38.1 % Normal 34.0-46.0 [facility] Comment on above: Performed By: #### 2 737376, 66492356, 9722265, 2838421, 6552892, 7008799 ####[address] [address] Hemoglobin (Bld) [Mass/Vol] 12.6 g/dL Normal 12.0-16.0 [facility] Comment on above: Performed By: #### 2 110853, 58411043, 3176894, 1923621, 0626104, 0672141 ####[address] [address] MCH (RBC) [Entitic mass] 29.1 pg Normal 27.0-34.0 [facility] Comment on above: Performed By: #### 2 254444, 97890150, 9910924, 5054686, 3182144, 3125936 ####[address] [address] MCHC (RBC) [Mass/Vol] 33.0 g/dL Normal 31.4-36.0 [facility] Comment on above: Performed By: #### 2 834861, 85201354, 6083410, 2764139, 1534588, 8248394 ####[address] [address] MCV (RBC) [Entitic vol] 88.3 fL Normal 80.0-100.0 [facility] Comment on above: Performed By: #### 2 420035, 16506605, 1198001, 2202068, 0620920, 3481736 ####[address] [address] Platelet mean volume (Bld) [Entitic vol] 8.2 fL Normal 6.4-10.8 [facility] Comment on above: Performed By: #### 2 163704, 91355700, 3840655, 3636337, 9562086, 3845157 ####[address] [address] Platelets (Bld) [#/Vol] 226.0 E9/L Normal 150.0-500.0 [facility] Comment on above: Performed By: #### 2 328736, 32100451, 0122086, 6470998, 3908460, 1601689 ####[facility] [address] [place] [address] RBC (Bld) [#/Vol] 4.3 E12/L Normal 4.3-5.9 [facility] Comment on above: Performed By: #### 2 997883, 85079067, 8424454, 9279084, 4150074, 2671133 ####[facility] [address] [place] [address] WBC corrected for nucl RBC Auto (Bld) [#/Vol] 7.8 E9/L Normal 4.0-11.0 [facility] Comment on above: Performed By: #### 2 180331, 36274229, 7618146, 6698334, 2252993, 5484214 ####[facility] [address] [place] [address] CHEMISTRYOrdered By: SYSTEM SYSTEM on 10-02-2022 Albumin [Mass/Vol] 4.1 g/dL Normal 3.3 - 5.0 gm/dL [facility] Albumin/Globulin [Mass ratio] 1.2 {ratio} Normal [...] Bilirubin [Mass/Vol] 0.7 mg/dL Normal 0.0 - 1.1 mg/dL [facility] Remisol Bilirubin.direct [Mass/Vol] 0.1 mg/dL Normal 0.1 - 0.4 mg/dL [facility]isol Bilirubin.indirect [Mass or moles/Vol] 0.6 mg/dL Normal 0.1 - 0.9 mg/dL [facility] Calcium [Mass/Vol] 9.7 mg/dL Normal 8.9 - 11.1 mg/dL [facility] Chloride [Moles/Vol] 107 mmol/L Normal 101 - 111 mmol/ L [facility] CO2 [Moles/Vol] 19 mmol/L Low 21 - 31 mmol/L [facility] Creatinine [Mass/Vol] 1.1 mg/dL Normal 0.5 - 1.3 mg/d L [facility] GFR/1.73 sq M.predicted among non-blacks MDRD (S/P/Bld) [Vol rate/Area] 55 mL/min/1.73 m2 Low >=59mL/min/1.73 m2 FT Chem S Globulin (S) [Mass/Vol] 3.5 g/dL Normal 1.4 - 4.0 gm/dL [facility] Glucose [Mass/Vol] 186 mg/dL Normal 55 - 199 mg/dL [facility] Lipase [Catalytic activity/Vol] 41 U/L Normal 13 - 58 unit/L [facility] Potassium [Moles/Vol] 3.1 mmol/L Low 3.5 - 5.3 mmol /L [facility] Protein [Mass/Vol] 7.6 g/dL Normal 6.0 - 7.8 gm/dL [facility] Remisol Sodium [Moles/Vol] 138 mmol/L Normal 135 - 145 mmol/L [facility] Urea nitrogen [Mass/Vol] 16 mg/dL Normal 5 - 21 mg/dL [facility] Urea nitrogen/Creatinine [Mass ratio] 14 mg/mg Normal 10 - 20 [facility]isol Consent for Treatmenton Consent for Treatment [id number]:12 7 Normal [facility] ED Clinical Summaryon 2022 ED Clinical Summary Normal [facility] ED Note-Physicianon 10-03-19 ED Note-Physician Normal [facility] Comment on above: Result Comment: Elec tronically Signed By: Clayton DUVALL, Raul M.\.br\Date and Time Signed: 10/02/22 18:44 EDT ED Patient Education Noteon 10-02-2022 ED Patient Education Note Normal [facility] ED Patient Summaryon 023 ED Patient Summary Normal [facility] HEMATOLOGYOrdered By: SYSTEM SYSTEM on 10-02-2022 [...] [Mass/Vol] 33.0 g/dL Normal 31.4 - 36.0 gm /dL [facility] HemeAutoSS MCV (RBC) [Entitic vol] 88.3 fL Normal 80.0 - 100.[address] [facility] HemeAutoSS Platelet mean volume (Bld) [Entitic vol] 8.2 fL Normal 6.4 - 10.[address] [facility] HemeAutoSS Platelets (Bld) [#/Vol] 226.0 E9/L Normal 150.0 - 500.0 E9/L [facility] HemeAutoSS RBC (Bld) [#/Vol] 4.3 E12/L Normal 4.3 - 5.9 E12/L [facility] HemeAutoSS WBC corrected for nucl RBC Auto (Bld) [#/Vol] 7.8 E9/L Normal 4.0 - 11.0 E9/L [facility] HemeAutoSS Hep Func Panelon 10-02-2022 Albumin [Mass/Vol] 4.1 g/dL Normal 3.3-5.0 [facility] Comment on above: Performed By: #### 2 225312, 68339788, 4096616, 9576998, 0558892, 7541702 ####[facility] [address] [place] [address] Albumin/Globulin (S) [Mass conc ratio] 1.2 Normal 1.1-2.2 [facility] Comment on above: Performed By: #### 2 133627, 71152992, 9945115, 2539442, 9749919, 6724516 ####[facility] [address] [place] [address] ALP [Catalytic activity/Vol] 67 Int._Unit/L Normal 21-98 [facility] Comment on above: Performed By: #### 2 179046, 27103555, 1652374, 3498599, 2928750, 8846154 ####[facility] [address] [place] [address] ALT No additional P-5'-P [Catalytic activity/Vol] 8 Int._Unit/L Normal 6-46 [facility] Comment on above: Performed By: #### 2 149156, 97449068, 6332609, 1039248, 7017918, 7679119 ####[place] [address] AST [Catalytic activity/Vol] 20 Int._Unit/L Normal 5-43 [facility] Comment on above: Performed By: #### 2 875166, 52691054, 7951156, 8938330, 6777812, 1490165 ####[place] [address] Bilirubin [Mass/Vol] 0.7 mg/dL Normal 0.0-1.1 [facility] Comment on above: Performed By: #### 2 952499, 74030505, 1855745, 4961719, 0057549, 7550850 ####[place] [address] Bilirubin.direct [Mass/Vol] 0.1 mg/dL Normal 0.1-0.4 [facility] Comment on above: Performed By: #### 2 628252, 89626554, 9519749, 0164138, 3691463, 8064289 ####[place] [address] Bilirubin.indirect [Mass or moles/Vol] 0.6 mg/dL Normal 0.1-0.9 [facility] Comment on above: Performed By: #### 2 679480, 72139894, 2268369, 4756443, 7346352, 1404143 ####[facility] [address] [place] [address] Globulin (S) [Mass/Vol] 3.5 g/dL Normal 1.4-4.0 [facility] Comment on above: Performed By: #### 2 094044, 93060841, 5118546, 3962300, 6883946, 2697148 ####[address] [address] Protein [Mass/Vol] 7.6 g/dL Normal 6.0-7.8 [facility] Comment on above: Performed By: #### 2 084984, 20463699, 4712819, 2584725, 2942711, 0776171 ####[facility] [address] [place] [address] Lipase Levelon 10-02-2022 Lipase [Catalytic activity/Vol] 41 U/L Normal 13-58 [facility] Comment on above: Performed By: #### 2 039666, 15939451, 1477224, 4169426, 6993766, 7414913 ####[facility] [address] [place] [address] Pre-Arrival Noteon 3 Pre-Arrival Note Normal [facility] eGFRon 10-02-2022 GFR/1.73 sq M.predicted among non-blacks MDRD (S/P/Bld) [Vol rate/Area] 55 mL/min/1.73 m2 Low >=59 [facility] Comment on above: Order Comment: Order added by Discern Expert. Result Comment: [facility]c Architect marquez kidney disease could be indicated at eGFR's of less than 60 mL/min/1.73m2. Kidney failure is indicated at less than 15 mL/min/1.73m2. Performed By: #### 2 624015, 15182262, 6744631, 1660075, 0074180, 9946128 ####[facility] [address] [place] [address] BLOOD BANKOrdered By: Jose Martin Brar on 09-04-2022 ABO/Rh Interp Positive Invalid Interpretation Code [facility] BB Subsection ABSC Gel Interp Negative (09/04/22 4:10 PM) Normal [facility] BB Subsection CHEMISTRYOrdered By: Lab ROP User on 09-04-2022 Glucose [Mass/Vol] 241 mg/dL High 55 - 99 mg/dL FTM C POC Subsection Comment on above: Result Comment: Fausto rubi RN/ POC Device SN [id number] Invalid Interpretation Code [facility] POC Subsection POC User ID [id number] Invalid Interpretation Code [facility] POC Subsection POC Username ALEKSANDAR KING Invalid Interpretation Code [facility] POC Subsection CHEMISTRYOrdered By: SYSTEM SYSTEM on 09-04-2022 Albumin [Mass/Vol] 3.6 g/dL Normal 3.3 - 5.0 gm/dL [facility] Albumin/Globulin [Mass ratio] 1.1 {ratio} Normal [...] Bilirubin [Mass/Vol] 0.6 mg/dL Normal 0.0 - 1.1 mg/dL [facility]isol Bilirubin.direct [Mass/Vol] 0.2 mg/dL Normal 0.1 - 0.4 mg/dL [facility] Bilirubin.indirect [Mass or moles/Vol] 0.4 mg/dL Normal 0.1 - 0.9 mg/dL [facility] Calcium [Mass/Vol] 9.0 mg/dL Normal 8.9 - 11.1 mg/dL [facility] Chloride [Moles/Vol] 112 mmol/L High 101 - 111 mmol/ L [facility] CO2 [Moles/Vol] 20 mmol/L Low 21 - 31 mmol/L [facility] Creatinine [Mass/Vol] 0.9 mg/dL Normal 0.5 - 1.3 mg/d L [facility] Ethanol [Mass/Vol] mg/dL Normal <=7mg/dL FT R emisol GFR/1.73 sq M.predicted among non-blacks MDRD (S/P/Bld) [Vol rate/Area] 70 mL/min/1.73 m2 Normal >=59mL/min/1.[address] [facility] Chem S Globulin (S) [Mass/Vol] 3.3 g/dL Normal 1.4 - 4.0 gm/dL [facility] Glucose [Mass/Vol] 237 mg/dL High 55 - 199 mg/dL [facility] Lactate [Mass/Vol] 1.7 mmol/L Normal 0.5 - 2.2 mmol/L [facility] Lipase [Catalytic activity/Vol] 40 U/L Normal 13 - 58 unit/L [facility] Potassium [Moles/Vol] 3.2 mmol/L Low 3.5 - 5.3 mmol /L [facility] Protein [Mass/Vol] 6.9 g/dL Normal 6.0 - 7.8 gm/dL [facility] Remisol Sodium [Moles/Vol] 140 mmol/L Normal 135 - 145 mmol/L [facility] Troponin I.cardiac [Mass/Vol] 3.20 pg/mL Low 10.10 - 27.10 pg/mL [facility] Urea nitrogen [Mass/Vol] 9 mg/dL Normal 5 - 21 mg/dL [facility] Urea nitrogen/Creatinine [Mass ratio] 10 mg/mg Normal 10 - 20 [facility] COAGULATIONOrdered By: Kraig Bradford on 09-04-2022 aPTT Coag (PPP) [Time] 28.8 s Normal 25.1 - 36.5 second(s) [facility] Auto Coag INR Coag (PPP) [Relative time] 1.1 {INR} Invalid Interpretation Code [facility] Auto Coag PT Coag (PPP) [Time] 12.0 s Normal 9.4 - 1 2.5 second(s) [facility] Auto Coag HEMATOLOGYOrdered By: SYSTEM SYSTEM on 09-04-2022 Basophils/100 [...] [Mass/Vol] 33.0 g/dL Normal 31.4 - 36.0 gm /dL [facility] HemeAutoSS MCV (RBC) [Entitic vol] 88.4 fL Normal 80.0 - 100.0 fL [facility] HemeAutoSS Platelet mean volume (Bld) [Entitic vol] 9.2 fL Normal 6.4 - 10.8 fL [facility] HemeAutoSS Platelets (Bld) [#/Vol] 148.0 E9/L Low 150.0 - 500.0 E9/L [facility] HemeAutoSS RBC (Bld) [#/Vol] 4.0 E12/L Low 4.3 - 5.9 E12/L [facility] HemeAutoSS WBC corrected for nucl RBC Auto (Bld) [#/Vol] 6.0 E9/L Normal 4.0 - 11.0 E9/L [facility] HemeAutoSS CHEMISTRYOrdered By: SYSTEM SYSTEM on 08-09-2022 Albumin [Mass/Vol] 3.9 g/dL Normal 3.3 - 5.0 gm/dL [facility] Albumin/Globulin [Mass ratio] 1.0 {ratio} Low [...] Bilirubin [Mass/Vol] 0.5 mg/dL Normal 0.0 - 1.1 mg/dL [facility] Bilirubin.direct [Mass/Vol] mg/dL Normal 0.1 - 0.4 mg/dL [facility] Bilirubin.indirect [Mass or moles/Vol] Unable to Calculate mg/dL Invalid Interpretation Code 0.1 - 0.9 mg/dL [facility] Calcium [Mass/Vol] 9.1 mg/dL Normal 8.9 - 11.1 mg/dL [facility] Chloride [Moles/Vol] 107 mmol/L Normal 101 - 111 mmol/ L [facility] CO2 [Moles/Vol] 22 mmol/L Normal 21 - 31 mmol/L [facility] Creatinine [Mass/Vol] 1.0 mg/dL Normal 0.5 - 1.3 mg/d L [facility] GFR/1.73 sq M.predicted among non-blacks MDRD (S/P/Bld) [Vol rate/Area] 62 mL/min/1.73 m2 Normal >=59mL/min/1.[address] [facility] Chem S Globulin (S) [Mass/Vol] 3.7 g/dL Normal 1.4 - 4.0 gm/dL [facility] Glucose [Mass/Vol] 203 mg/dL High 55 - 199 mg/dL [facility] Lactate [Mass/Vol] 1.9 mmol/L Normal 0.5 - 2.2 mmol/L [facility] Potassium [Moles/Vol] 3.7 mmol/L Normal 3.5 - 5.3 mmol /L [facility] Protein [Mass/Vol] 7.6 g/dL Normal 6.0 - 7.8 gm/dL [facility] Sodium [Moles/Vol] 138 mmol/L Normal 135 [...] FT C POC Subsection POC Device SN [id number] Invalid Interpretation Code [facility] POC Subsection POC User ID [id number] Invalid Interpretation Code [facility] POC Subsection POC Username STEVE KIMBALL Invalid Interpretation Code [facility] POC Subsection COAGULATIONOrdered By: Vinnie Smith on 08-09-2022 aPTT Coag (PPP) [Time] 31.1 s Normal 25.1 - 36.5 second(s) [facility] Auto Coag INR Coag (PPP) [Relative time] 1.0 {INR} Invalid Interpretation Code [facility] Auto Coag PT Coag (PPP) [Time] 10.9 s Normal 9.4 - 1 2.5 second(s) [facility] Auto Coag HEMATOLOGYOrdered By: SYSTEM SYSTEM on 08-09-2022 Basophils/100 [...] 2.9 E9/L Normal 2.0 - 7.5 E9/L [facility] HemeAutoSS HEMATOLOGYOrdered By: Kirstin King on 08-09-2022 [...] [Mass/Vol] 31.6 g/dL Normal 31.4 - 36.0 gm /dL [facility] HemeAutoSS MCV (RBC) [Entitic vol] 91.4 fL Normal 80.0 - 100.0 fL [facility] HemeAutoSS Platelet mean volume (Bld) [Entitic vol] 8.2 fL Normal 6.4 - 10.8 fL [facility] HemeAutoSS Platelets (Bld) [#/Vol] 141.0 E9/L Low 150.0 - 500.0 E9/L [facility] RBC (Bld) [#/Vol] 4.2 E12/L Low 4.3 - 5.9 E12/L [facility] HemeAutoSS WBC corrected for nucl RBC Auto (Bld) [#/Vol] 4.9 E9/L Normal 4.0 - 11.0 E9/L [facility] URINALYSISOrdered By: Sylvia Smith on 08-09-2022 Bilirubin [...] PM) Normal Negative [facility] UA Auto SS [place].plasma/[place] .RBC (Bld) [Mass ratio] 0-3 /HPF Normal 0-3/HPF [facility] UA Auto SS Nitrite Ql (U) Negative (08/09/22 2:08 [...] [facility] UA Auto SS Urobilinogen Qn (U) [id number] {Papa'U}/dL Normal 0.0 - 1.0 EU/dL [facility] UA Auto SS WBC Auto Ql (U) Negative (08/09/22 2:08 PM) Normal Negative [facility] UA Auto SS WBC LM.HPF (Urine sed) [#/Area] 0-5 /HPF Normal 0-5/HPF [facility] UA Auto SS Progress Noteson 07-18-2022 [employer] Authentication Interface Message Text EMERGENCY TRIAGE, TREAT AND TRANSPORT (ET3) DOCUMENTATION OF TELEHEALTH VISIT Date / Time: 07/18/2022 / 1615 Name: Fartun Myers NOTE: CORRECT SPELLING MAY BE ZACH : 1955 SSN: (Not on file) EMS Agency: [facility] [x] Verbal consent obtained [] [...] Completed by: Naseem Hardy MD Normal [facility] [employer] [facility] CHEMISTRYOrdered By: SYSTEM SYSTEM on 12-14-2022 Albumin [Mass/Vol] 3.6 g/dL Normal 3.3 - 5.0 gm/dL [facility] Remisol Albumin/Globulin [Mass ratio] 1.1 {ratio} Normal [...] Bilirubin [Mass/Vol] 0.6 mg/dL Normal 0.0 - 1.1 mg/dL [facility] Rem[facility] Bilirubin.direct [Mass/Vol] 0.1 mg/dL Normal 0.1 - 0.4 mg/dL [facility] Bilirubin.indirect [Mass or moles/Vol] 0.5 mg/dL Normal 0.1 - 0.9 mg/dL [facility] Calcium [Mass/Vol] 8.6 mg/dL Low 8.9 - 11.1 mg/dL [facility] Chloride [Moles/Vol] 105 mmol/L Normal 101 - 111 mmol/ L [facility] CO2 [Moles/Vol] 21 mmol/L Normal 21 - 31 mmol/L [facility] Creatinine [Mass/Vol] 1.0 mg/dL Normal 0.5 - 1.3 mg/d L [facility] Remisol GFR/1.73 sq M.predicted among blacks MDRD (S/P/Bld) [Vol rate/Area] mL/min/1.73 m2 Normal >=59mL/min/1.73 m2 [facility] Chem S GFR/1.73 sq M.predicted among non-blacks MDRD (S/P/Bld) [Vol rate/Area] 55 mL/min/1.73 m2 Low >=59mL/min/1.73 m2 [facility] Chem S Globulin (S) [Mass/Vol] 3.3 g/dL Normal 1.4 - 4.0 gm/dL [facility] Remisol Glucose [Mass/Vol] 123 mg/dL Normal 55 - 199 mg/dL [facility] Remisol Lipase [Catalytic activity/Vol] 39 U/L Normal 13 - 58 unit/L [facility] Remisol Potassium [Moles/Vol] 4.2 mmol/L Normal 3.5 - 5.3 mmol /L [facility] Remisol Protein [Mass/Vol] 6.9 g/dL Normal 6.0 - 7.8 gm/dL [facility] [place] Remisol Sodium [Moles/Vol] 135 mmol/L Normal 135 - 145 mmol/L [facility] Remisol Urea nitrogen [Mass/Vol] 26 mg/dL High 5 - 21 mg/dL [facility] Remisol Urea nitrogen/Creatinine [Mass ratio] 26 mg/mg [...] [Mass/Vol] 32.0 g/dL Normal 31.4 - 36.0 gm /dL [facility] HemeAutoSS MCV (RBC) [Entitic vol] 88.7 fL Normal 80.0 - 100.0 fL [facility] HemeAutoSS Platelet mean volume (Bld) [Entitic vol] 8.3 fL Normal 6.4 - 10.8 fL [facility] HemeAutoSS Platelets (Bld) [#/Vol] 165.0 E9/L Normal 150.0 - 500.0 E9/L [facility] HemeAutoSS RBC (Bld) [#/Vol] 3.7 E12/L Low 4.3 - 5.9 E12/L [facility] HemeAutoSS WBC corrected for nucl RBC Auto [...] PM) Normal Negative [facility] UA Auto SS [place].plasma/[place] .RBC (Bld) [Mass ratio] 0-3 /HPF Normal 0-3/HPF [facility] UA Auto SS Nitrite Ql (U) Negative (03/13/22 6:28 [...] [facility] UA Auto SS Urobilinogen Qn (U) [id number] {Papa'U}/dL Normal 0.0 - 1.0 EU/dL [facility] UA Auto SS WBC Auto Ql (U) Negative (03/13/22 6:28 PM) Normal Negative [facility] UA Auto SS WBC LM.HPF (Urine sed) [#/Area] 0-5 /HPF Normal 0-5/HPF [facility] UA Auto SS CHEMISTRYOrdered By: SYSTEM SYSTEM on 02-08-2022 Albumin [Mass/Vol] 3.2 g/dL Low 3.3 - 5.0 gm/dL [facility] Remisol Albumin/Globulin [Mass ratio] 1.0 {ratio} Low [...] 0.05 mmol/L Normal 0.02 - 0.27 mmol/L [facility] Remisol Bilirubin [Mass/Vol] 0.2 mg/dL Normal 0.0 - 1.1 mg/dL [facility] Remisol Bilirubin.direct [Mass/Vol] mg/dL Normal 0.1 - 0.4 mg/dL [facility] Remisol Bilirubin.indirect [Mass or moles/Vol] Unable to Calculate mg/dL Invalid Interpretation Code 0.1 - 0.9 mg/dL [facility] Remisol Calcium [Mass/Vol] 9.0 mg/dL Normal 8.9 - 11.1 mg/dL [facility] Remisol Chloride [Moles/Vol] 104 mmol/L Normal 101 - 111 mmol/ L [facility] Remisol CO2 [Moles/Vol] 23 mmol/L Normal 21 - 31 mmol/L [facility] Rem[facility] Creatinine [Mass/Vol] 0.9 mg/dL Normal 0.5 - 1.3 mg/d L [facility] Remisol GFR/1.73 sq M.predicted among blacks MDRD (S/P/Bld) [Vol rate/Area] mL/min/1.73 m2 Normal >=59mL/min/1.[address] [facility] [place] Chem S GFR/1.73 sq M.predicted among non-blacks MDRD (S/P/Bld) [Vol rate/Area] mL/min/1.73 m2 Normal >=59mL/min/1.[address] [facility] [place] Chem S Globulin (S) [Mass/Vol] 3.3 g/dL Normal 1.4 - 4.0 gm/dL [facility] Remisol Glucose [Mass/Vol] 316 mg/dL High 55 - 199 mg/dL [facility] Remisol Potassium [Moles/Vol] 3.5 mmol/L Normal 3.5 - 5.3 mmol /L [facility] Remisol Protein [Mass/Vol] 6.5 g/dL Normal 6.0 - 7.8 gm/dL [facility] Remisol Sodium [Moles/Vol] 135 mmol/L Normal 135 [...] [Mass/Vol] 34.7 g/dL Normal 31.4 - 36.0 gm /dL [facility] HemeAutoSS MCV (RBC) [Entitic vol] 84.1 fL Normal 80.0 - 100.0 fL [facility] HemeAutoSS Platelet mean volume (Bld) [Entitic vol] 8.1 fL Normal 6.4 - 10.8 fL [facility] HemeAutoSS Platelets (Bld) [#/Vol] 180.0 E9/L Normal 150.0 - 500.0 E9/L [facility] HemeAutoSS RBC (Bld) [#/Vol] 3.4 E12/L Low 4.3 - 5.9 E12/L FT [...] PM) Normal Negative [facility] UA Auto SS [place].plasma/[place] .RBC (Bld) [Mass ratio] 0-3 /HPF Normal 0-3/HPF [facility] UA Auto SS Nitrite Ql (U) Negative (02/08/22 9:05 [...] Desc Clean Catch (02/08/22 9:05 PM) Normal [facility] [place] UA Auto SS Urobilinogen Qn (U) 0.6382843 {Papa'U}/dL Normal 0.0 - 1.0 EU/dL [facility] [place] UA Auto SS WBC Auto Ql (U) Negative (02/08/22 9:05 PM) Normal Negative [facility] [place] UA Auto SS WBC LM.HPF (Urine sed) [#/Area] 0-5 /HPF Normal 0-5/HPF [facility] [place] UA Auto SS CHEMISTRYOrdered By: SYSTEM SYSTEM on 02-03-2022 Anion gap [Moles/Vol] 8 mmol/L Normal 6 - 16 mEq/L [facility] [place] Remisol Calcium [Mass/Vol] 8.2 mg/dL Low 8.9 - 11.1 mg/dL [facility] Remisol Chloride [Moles/Vol] 111 mmol/L Normal 101 - 111 mmol/ L [facility] Remisol CO2 [Moles/Vol] 22 mmol/L Normal 21 - 31 mmol/L [facility] Remisol Creatinine [Mass/Vol] 1.2 mg/dL Normal 0.5 - 1.3 mg/d L [facility] Remisol GFR/1.73 sq M.predicted among blacks MDRD (S/P/Bld) [Vol rate/Area] 54 mL/min/1.73 m2 Low >=59mL/min/1.[address] [facility] [place] Chem S GFR/1.73 sq M.predicted among non-blacks MDRD (S/P/Bld) [Vol rate/Area] 45 mL/min/1.73 m2 Low >=59mL/min/1.[address] [facility] [place] Chem S Glucose [Mass/Vol] 165 mg/dL Normal 55 - 199 mg/dL [facility] Remisol Potassium [Moles/Vol] 3.2 mmol/L Low 3.5 - 5.3 mmol /L [facility] Remisol Sodium [Moles/Vol] 138 mmol/L Normal 135 - 145 mmol/L [facility] Remisol Urea nitrogen [Mass/Vol] 11 mg/dL Normal 5 - 21 mg/dL [facility] [place] Remisol Urea nitrogen/Creatinine [Mass ratio] 9 mg/mg Low 10 - 20 [facility] Remisol CHEMISTRYOrdered By: Lab ROP User on 02-03-2022 Glucose [Mass/Vol] 186 mg/dL High 55 - 99 mg/dL [facility] POC Subsection Comment on above: Result Comment: Fausto rubi RN/ POC Device SN [id number] Invalid Interpretation Code [facility] POC Subsection POC User ID [id number] Invalid Interpretation Code [facility] POC Subsection POC Username SELVIN BARON Invalid Interpretation Code [facility] POC Subsection HEMATOLOGYOrdered By: SYSTEM SYSTEM on [...] 29.5 pg Normal 27.0 - 34.0 pg [facility] HemeAutoSS MCHC (RBC) [Mass/Vol] 34.1 g/dL Normal 31.4 - 36.0 gm /dL [facility] HemeAutoSS MCV (RBC) [Entitic vol] 86.4 fL Normal 80.0 - 100.0 fL [facility] HemeAutoSS Platelet mean volume (Bld) [Entitic vol] 8.9 fL Normal 6.4 - 10.8 fL [facility] HemeAutoSS Platelets (Bld) [#/Vol] 145.0 E9/L Low 150.0 - 500.0 E9/L [facility] HemeAutoSS RBC (Bld) [#/Vol] 3.2 E12/L Low 4.3 - 5.9 E12/L [facility] HemeAutoSS WBC corrected for nucl RBC Auto (Bld) [#/Vol] 5.3 E9/L Normal 4.0 - 11.0 E9/L [facility] HemeAutoSS CHEMISTRYOrdered By: Lab ROP User on 02-02-2022 Glucose [Mass/Vol] 155 mg/dL High 55 - 99 mg/dL [facility] POC Subsection Comment on above: Result Comment: Fausto rubi RN/ POC Device SN [id number] Invalid Interpretation Code [facility] POC Subsection POC User ID [id number] Invalid Interpretation Code [facility] POC Subsection POC Username VIPULKayy JERZY Invalid Interpretation Code [facility] POC Subsection Glucose [Mass/Vol] 176 mg/dL High 55 - 99 mg/dL [facility] C POC Subsection Comment on above: Result Comment: Lucille ronak Meter POC Device SN [id number] Invalid Interpretation Code [facility] POC Subsection POC User ID [id number] Invalid Interpretation Code [facility] POC Subsection POC Username LIANA ALLEN Invalid Interpretation Code [facility] POC Subsection CHEMISTRYOrdered By: SYSTEM SYSTEM on 02-02-2022 Anion gap [Moles/Vol] 7 mmol/L Normal 6 - 16 mEq/L [facility] Remisol Calcium [Mass/Vol] 7.8 mg/dL Low 8.9 - 11.1 mg/dL [facility] Remisol Chloride [Moles/Vol] 115 mmol/L High 101 - 111 mmol/ L [facility] Remisol CO2 [Moles/Vol] 22 mmol/L Normal 21 - 31 mmol/L [facility] Remisol Creatinine [Mass/Vol] 1.0 mg/dL Normal 0.5 - 1.3 mg/d L [facility] Remisol GFR/1.73 sq M.predicted among blacks MDRD (S/P/Bld) [Vol rate/Area] mL/min/1.73 m2 Normal >=59mL/min/1.73 m2 [facility] Chem S GFR/1.73 sq M.predicted among non-blacks MDRD (S/P/Bld) [Vol rate/Area] 55 mL/min/1.73 m2 Low >=59mL/min/1.[address] [facility] [place] Chem S Glucose [Mass/Vol] 159 mg/dL Normal 55 - 199 mg/dL [facility] Remisol Potassium [Moles/Vol] 3.6 mmol/L Normal 3.5 - 5.3 mmol /L [facility] Remisol Sodium [Moles/Vol] 140 mmol/L Normal [...] (Urine sed) [#/Area] 0-2 /HPF Normal 0-2/HPF [facility] UA Aut o SS Glucose Test strip (U) [Mass/Vol] Negative (02/02/22 7:06 AM) Normal Negative [facility] UA Auto SS Hemoglobin Ql (U) Negative (02/02/22 7:06 AM) Normal Negative [facility] UA Auto SS Ketones (U) [Mass/Vol] Negative (02/02/22 7:06 AM) Normal Negative [facility] UA Auto SS [place].plasma/[place] .RBC (Bld) [Mass ratio] 0-3 /HPF Normal 0-3/HPF [facility] UA Auto SS Nitrite Ql (U) Negative (02/02/22 7:06 AM) Normal Negative [facility] [place] UA Auto SS pH (U) 6.5 *NA* (02/02/22 7:06 AM) Invalid Interpretation Code 5.0 - 9.0 [facility] [place] UA Auto SS Protein (U) [Mass/Vol] Negative (02/02/22 7:06 AM) Normal Negative [facility] [place] UA Auto SS Specific gravity (U) [Rel density] 1.010 *NA* (02/02/22 7:06 AM) Invalid Interpretation Code 1.005 - 1.030 [facility] [place] UA Auto SS UA Spec Desc Clean Catch (02/02/22 7:06 AM) Normal [facility] [place] UA Auto SS Urobilinogen Qn (U) 0.3995337 {Papa'U}/dL Normal 0.0 - 1.0 EU/dL [facility] [place] UA Auto SS WBC Auto Ql (U) Trace *ABN* (02/02/22 7:06 AM) Invalid Interpretation Code Negative [facility] [place] UA Auto SS WBC LM.HPF (Urine sed) [#/Area] 0-5 /HPF Normal 0-5/HPF [facility] [place] UA Auto SS CHEMISTRYOrdered By: Lab ROP User on 02-01-2022 Glucose [Mass/Vol] 261 mg/dL High 55 - 99 mg/dL [facility] POC Subsection Comment on above: Result Comment: Fausto rubi RN/ POC Device SN [id number] Invalid Interpretation Code [facility] [place] POC Subsection POC User ID [id number] Invalid Interpretation Code [facility] POC Subsection POC Username HUMA JOYITLYN Invalid Interpretation Code [facility] [place] POC Subsection CHEMISTRYOrdered By: SYSTEM SYSTEM on 02-01-2022 Anion gap [Moles/Vol] 10 mmol/L Normal 6 - 16 mEq/L [facility] Remisol Calcium [Mass/Vol] 8.2 mg/dL Low 8.9 - 11.1 mg/dL [facility] Remisol Chloride [Moles/Vol] 108 mmol/L Normal 101 - 111 mmol/ L [facility] Remisol CO2 [Moles/Vol] 21 mmol/L Normal 21 - 31 mmol/L [facility] Remisol GFR/1.73 sq M.predicted among blacks MDRD (S/P/Bld) [Vol rate/Area] 42 mL/min/1.73 m2 Low >=59mL/min/1.[address] [facility] [place] Chem S GFR/1.73 sq M.predicted among non-blacks MDRD (S/P/Bld) [Vol rate/Area] 35 mL/min/1.73 m2 Low >=59mL/min/1.[address] [facility] [place] Chem S Glucose [Mass/Vol] 128 mg/dL Normal 55 - 199 mg/dL [facility] Remisol Magnesium [Mass/Vol] 2.0 mg/dL Normal 1.3 - 2.4 mg/dL [facility] [place] Remisol Sodium [Moles/Vol] 136 mmol/L Normal 135 - 145 mmol/L [facility] [place] Remisol Urea nitrogen [Mass/Vol] 31 mg/dL High 5 - 21 mg/dL [facility] [place] Remisol Urea nitrogen/Creatinine [Mass ratio] 21 mg/mg High 10 - [address] [facility] [place] Remisol CHEMISTRYOrdered By: Sylvia Smith on 02-01-2022 Creatinine [Mass/Vol] 1.5 mg/dL High 0.5 - 1.3 mg/d L [facility] [place] Remisol Potassium [Moles/Vol] 3.3 mmol/L Low 3.5 - 5.3 mmol /L [facility] [place] Remisol HEMATOLOGYOrdered By: SYSTEM SYSTEM on 02-01-2022 [...] 30.8 % Low 34.0 - 46.0 % [facility] HemeAutoSS Hemoglobin (Bld) [Mass/Vol] 10.4 g/dL Low 12.0 - 16.0 gm/dL [facility] HemeAutoSS MCH (RBC) [Entitic mass] 29.2 pg Normal 27.0 - 34.0 pg [facility] HemeAutoSS MCHC (RBC) [Mass/Vol] 33.8 g/dL Normal 31.4 - 36.0 gm /dL [facility] HemeAutoSS MCV (RBC) [Entitic vol] 86.3 fL Normal 80.0 - 100.0 fL [facility]eAutoSS Platelet mean volume (Bld) [Entitic vol] 8.8 fL Normal 6.4 - 10.8 fL [facility] HemeAutoSS Platelets (Bld) [#/Vol] 161.0 E9/L Normal 150.0 - 500.0 E9/L [facility] HemeAutoSS RBC (Bld) [#/Vol] 3.6 E12/L Low 4.3 - 5.9 E12/L [facility] HemeAutoSS WBC corrected for nucl RBC Auto (Bld) [#/Vol] 10.8 E9/L Normal 4.0 - 11.0 E9/L [facility] HemeAutoSS CHEMISTRYOrdered By: SYSTEM SYSTEM on 01-31-2022 Albumin [Mass/Vol] 3.8 g/dL Normal 3.3 - 5.0 gm/dL [facility] Remisol Albumin/Globulin [Mass ratio] 1.1 {ratio} Normal [...] Bilirubin [Mass/Vol] 0.6 mg/dL Normal 0.0 - 1.1 mg/dL [facility] Remisol Bilirubin.direct [Mass/Vol] 0.1 mg/dL Normal 0.1 - 0.4 mg/dL [facility] Remisol Bilirubin.indirect [Mass or moles/Vol] 0.5 mg/dL Normal 0.1 - 0.9 mg/dL [facility] Remisol Calcium [Mass/Vol] 9.4 mg/dL Normal 8.9 - 11.1 mg/dL [facility] Remisol Chloride [Moles/Vol] 102 mmol/L Normal 101 - 111 mmol/ L [facility] Remisol CO2 [Moles/Vol] 19 mmol/L Low 21 - 31 mmol/L [facility] Remisol GFR/1.73 sq M.predicted among blacks MDRD (S/P/Bld) [Vol rate/Area] 27 mL/min/1.73 m2 Low >=59mL/min/1.[address] [facility] [place] Chem S GFR/1.73 sq M.predicted among non-blacks MDRD (S/P/Bld) [Vol rate/Area] 22 mL/min/1.73 m2 Low >=59mL/min/1.[address] [facility] [place] Chem S Globulin (S) [Mass/Vol] 3.6 g/dL Normal 1.4 - 4.0 gm/dL [facility] Remisol Glucose [Mass/Vol] 274 mg/dL High 55 - 199 mg/dL [facility] Remisol Lactate [Mass/Vol] 1.2 mmol/L Normal 0.5 - 2.2 mmol/L [facility] Remisol Lipase [Catalytic activity/Vol] 29 U/L Normal 13 - 58 unit/L [facility] Remisol Potassium [Moles/Vol] 4.4 mmol/L Normal 3.5 - 5.3 mmol /L [facility] Remisol Protein [Mass/Vol] 7.4 g/dL Normal 6.0 - 7.8 gm/dL [facility] Remisol Sodium [Moles/Vol] 135 mmol/L Normal 135 - 145 mmol/L [facility] Remisol Troponin I.cardiac [Mass/Vol] 4.30 pg/mL Low 10.10 - 27.10 pg/mL [facility] Remisol Urea nitrogen [Mass/Vol] 34 mg/dL High 5 - 21 mg/dL [facility] Remisol Urea nitrogen/Creatinine [Mass ratio] 16 mg/mg Normal 10 - 20 [facility] Remisol CHEMISTRYOrdered By: Yosvany Carreon on 01-31-2022 Creatinine [Mass/Vol] 2.2 mg/dL High 0.5 - 1.3 mg/d L [facility] Remisol CHEMISTRYOrdered By: Sejal Carter on 01-31-2022 HbA1c (Bld) [Mass fraction] 9.6 % High <=5.9% [facility] ChemAutoSS HEMATOLOGYOrdered By: SYSTEM SYSTEM on 01-31-2022 [...] 10.9 % Low 14.0 - 50.0 % [facility] [...] 7.2 E9/L Normal 2.0 - 7.5 E9/L [facility] HemeAutoSS HEMATOLOGYOrdered By: Sheila Carter on 01-31-2022 Erythrocyte distribution width (RBC) [Ratio] 13.5 % Normal 10.9 - 14.2 % [facility] HemeAutoSS Hematocrit (Bld) [Volume fraction] 35.8 % Normal 34.0 - 46.0 % [facility] HemeAutoSS Hemoglobin (Bld) [Mass/Vol] 11.7 g/dL Low 12.0 - 16.0 gm/dL [facility] HemeAutoSS MCH (RBC) [Entitic mass] 28.7 pg Normal 27.0 - 34.0 pg [facility] HemeAutoSS MCHC (RBC) [Mass/Vol] 32.6 g/dL Normal 31.4 - 36.0 gm /dL [facility] HemeAutoSS MCV (RBC) [Entitic vol] 88.1 fL Normal 80.0 - 100.0 fL [facility] HemeAutoSS Platelet mean volume (Bld) [Entitic vol] 9.3 fL Normal 6.4 - 10.8 fL [facility] HemeAutoSS Platelets (Bld) [#/Vol] 197.0 E9/L Normal 150.0 - 500.0 E9/L [facility] HemeAutoSS RBC (Bld) [#/Vol] 4.1 E12/L Low 4.3 - 5.9 E12/L [facility] HemeAutoSS WBC corrected for nucl RBC Auto (Bld) [#/Vol] 9.3 E9/L Normal 4.0 - 11.0 E9/L [facility] HemeAutoSS CHEMISTRYOrdered By: Lab ROP User on 01-30-2022 Glucose [Mass/Vol] 250 mg/dL High 55 - 99 mg/dL [facility] POC Subsection Comment on above: Result Comment: Fausto rubi RN/ POC Device SN [id number] Invalid Interpretation Code [facility] POC Subsection POC User ID [id number] Invalid Interpretation Code [facility] POC Subsection POC Username GAGANDEEP HER Invalid Interpretation Code [facility] POC Subsection Glucose [Mass/Vol] 265 mg/dL High 55 - 99 mg/dL [facility] POC Subsection Comment on above: Result Comment: Fausto rubi RN/ POC Device SN [id number] Invalid Interpretation Code [facility] POC Subsection POC User ID [id number] Invalid Interpretation Code [facility] POC Subsection POC Username GAGANDEEP HER Invalid Interpretation Code [facility] POC Subsection CHEMISTRYOrdered By: SYSTEM SYSTEM on 01-30-2022 Anion gap [Moles/Vol] 12 mmol/L Normal 6 - 16 mEq/L [facility] Remisol Calcium [Mass/Vol] 8.8 mg/dL Low 8.9 - 11.1 mg/dL [facility] [place] Remisol Chloride [Moles/Vol] 106 mmol/L Normal 101 - 111 mmol/ L [facility] Remisol CO2 [Moles/Vol] 24 mmol/L Normal 21 - 31 mmol/L [facility] Remisol Creatinine [Mass/Vol] 1.1 mg/dL Normal 0.5 - 1.3 mg/d L [facility] Remisol GFR/1.73 sq M.predicted among blacks MDRD (S/P/Bld) [Vol rate/Area] 60 mL/min/1.73 m2 Normal >=59mL/min/1.[address] [facility] [place] Chem S GFR/1.73 sq M.predicted among non-blacks MDRD (S/P/Bld) [Vol rate/Area] 50 mL/min/1.73 m2 Low >=59mL/min/1.[address] [facility] [place] Chem S Glucose [Mass/Vol] 255 mg/dL High 55 - 199 mg/dL [facility] Remisol Potassium [Moles/Vol] 3.5 mmol/L Normal 3.5 - 5.3 mmol /L [facility] [place] Remisol Sodium [Moles/Vol] 138 mmol/L Normal 135 - 145 mmol/L [facility] [place] Remisol Urea nitrogen [Mass/Vol] 19 mg/dL Normal 5 - 21 mg/dL [facility] [place] Remisol Urea nitrogen/Creatinine [Mass ratio] 17 mg/mg Normal 10 - [address] [facility] Remisol CHEMISTRYOrdered By: SYSTEM SYSTEM on 01-29-2022 Anion gap [Moles/Vol] 14 mmol/L Normal 6 - 16 mEq/L [facility] Remisol Calcium [Mass/Vol] 9.1 mg/dL Normal 8.9 - 11.1 mg/dL [facility] Remisol Chloride [Moles/Vol] 103 mmol/L Normal 101 - 111 mmol/ L [facility] Remisol CO2 [Moles/Vol] 24 mmol/L Normal 21 - 31 mmol/L [facility] Rem[facility] Creatinine [Mass/Vol] 1.1 mg/dL Normal 0.5 - 1.3 mg/d L [facility] Remisol GFR/1.73 sq M.predicted among blacks MDRD (S/P/Bld) [Vol rate/Area] 60 mL/min/1.73 m2 Normal >=59mL/min/1.[address] [facility] [place] Chem S GFR/1.73 sq M.predicted among non-blacks MDRD (S/P/Bld) [Vol rate/Area] 50 mL/min/1.73 m2 Low >=59mL/min/1.[address] [facility] [place] Chem S Glucose [Mass/Vol] 245 mg/dL High 55 - 199 mg/dL [facility] Remisol Potassium [Moles/Vol] 3.5 mmol/L Normal 3.5 - 5.3 mmol /L [facility] Remisol Sodium [Moles/Vol] 137 mmol/L Normal 135 - 145 mmol/L [facility] Remisol Urea nitrogen [Mass/Vol] 18 mg/dL Normal 5 - 21 mg/dL [facility] Remisol Urea nitrogen/Creatinine [Mass ratio] 16 mg/mg Normal 10 - 20 [facility] Remisol Anion gap [Moles/Vol] 13 mmol/L Normal 6 - 16 mEq/L [facility] [place] Remisol Calcium [Mass/Vol] 9.0 mg/dL Normal 8.9 - 11.1 mg/dL [facility] Remisol Chloride [Moles/Vol] 107 mmol/L Normal 101 - 111 mmol/ L [facility] Remisol CO2 [Moles/Vol] 23 mmol/L Normal 21 - 31 mmol/L [facility] Remisol Creatinine [Mass/Vol] 1.2 mg/dL Normal 0.5 - 1.3 mg/d L [facility] Remisol GFR/1.73 sq M.predicted among blacks MDRD (S/P/Bld) [Vol rate/Area] 54 mL/min/1.73 m2 Low >=59mL/min/1.[address] [facility] [place] Chem S GFR/1.73 sq M.predicted among non-blacks MDRD (S/P/Bld) [Vol rate/Area] 45 mL/min/1.73 m2 Low >=59mL/min/1.[address] [facility] [place] Chem S Glucose [Mass/Vol] 151 mg/dL Normal 55 - 199 mg/dL [facility] Remisol Potassium [Moles/Vol] 3.7 mmol/L Normal 3.5 - 5.3 mmol /L [facility] Remisol Sodium [Moles/Vol] 139 mmol/L Normal 135 - 145 mmol/L [facility] Remisol Urea nitrogen [Mass/Vol] 15 mg/dL Normal 5 - 21 mg/dL [facility] Remisol Urea nitrogen/Creatinine [Mass ratio] 12 mg/mg Normal 10 - 20 [facility] Remisol CHEMISTRYOrdered By: Lab ROP User on 01-29-2022 Glucose [Mass/Vol] 248 mg/dL High 55 - 99 mg/dL [facility] POC Subsection Comment on above: Result Comment: Fausto rubi RN/ POC Device SN [id number] Invalid Interpretation Code [facility] [place] POC Subsection POC User ID [id number] Invalid Interpretation Code [facility] POC Subsection POC Username ESTEFANY GUZMAN Invalid Interpretation Code [facility] POC Subsection CHEMISTRYOrdered By: SYSTEM SYSTEM on 01-28-2022 Albumin [Mass/Vol] 3.5 g/dL Normal 3.3 - 5.0 gm/dL [facility] [place] Remisol Albumin/Globulin [Mass ratio] 1.0 {ratio} Low 1.1 - 2.2 [facility] Remisol ALP [Catalytic activity/Vol] 85 [iU]/d Normal 21 - 98 Int._Unit/L [facility] Remisol ALT No additional P-5'-P [Catalytic activity/Vol] 12 [iU]/d Normal 6 - 46 Int._Unit/L [facility] Remisol AST [Catalytic activity/Vol] 16 [iU]/d Normal 5 - 43 Int._Unit/L [facility] Remisol Bilirubin [Mass/Vol] 0.4 mg/dL Normal 0.0 - 1.1 mg/dL [facility] Remisol Bilirubin.direct [Mass/Vol] mg/dL Normal 0.1 - 0.4 mg/dL [facility] Remisol Bilirubin.indirect [Mass or moles/Vol] Unable to Calculate mg/dL Invalid Interpretation Code 0.1 - 0.9 mg/dL [facility] Remisol Globulin (S) [Mass/Vol] 3.7 g/dL Normal 1.4 - 4.0 gm/dL [facility] Remisol Lipase [Catalytic activity/Vol] 35 U/L Normal 13 - 58 unit/L [facility] Remisol Protein [Mass/Vol] 7.2 g/dL Normal 6.0 - 7.8 gm/dL [facility] Remisol FT Blood GasesOrdered By: Nakia Aguayo on 01-28-2022 Allens Test Not Applicable (01/28/22 1:53 PM) Normal [facility] Resp Auto SS Drawn by lab Invalid Interpretation Code [facility] Resp Auto SS FIO2 BG 21 Invalid Interpretation Code [facility] Resp Auto SS pCO2 Randall 36.7 mm[Hg] Low 38.0 - 50.0 mmHg [facility] Re sp Auto SS pH Randall 7.288 Low 7.320 - 7.430 [facility] Resp Auto SS Sample Site OTHER (01/28/22 1:53 PM) Normal [facility] Resp Auto SS Sample Type Venous Draw [...] [Mass/Vol] 31.1 g/dL Low 31.4 - 36.0 gm /dL [facility] HemeAutoSS MCV (RBC) [Entitic vol] 92.0 fL Normal 80.0 - 100.0 fL [facility] HemeAutoSS Platelet mean volume (Bld) [Entitic vol] 9.0 fL Normal 6.4 - 10.8 fL [facility] HemeAutoSS Platelets (Bld) [#/Vol] 193.0 E9/L Normal 150.0 - 500.0 E9/L [facility] HemeAutoSS RBC (Bld) [#/Vol] 3.8 E12/L Low 4.3 - 5.9 E12/L [facility] HemeAutoSS WBC corrected for nucl RBC Auto [...] PM) Normal Negative [facility] UA Auto SS [place].plasma/[place] .RBC (Bld) [Mass ratio] 0-3 /HPF Normal 0-3/HPF [facility] UA Auto SS Nitrite Ql (U) Negative (01/28/22 2:37 [...] [facility] UA Auto SS Urobilinogen Qn (U) 0.5421454 {Papa'U}/dL Normal 0.0 - 1.0 EU/dL [facility] UA Auto SS WBC Auto Ql (U) Negative (01/28/22 2:37 PM) Normal Negative [facility] UA Auto SS WBC LM.HPF (Urine sed) [#/Area] 0-5 /HPF Normal 0-5/HPF [facility] UA Auto SS CHEMISTRYOrdered By: Lab ROP User on 01-27-2022 Glucose [Mass/Vol] 187 mg/dL High 55 - 99 mg/dL FTM C POC Subsection Comment on above: Result Comment: Fausto rubi RN/ POC Device [id number] Invalid Interpretation Code [facility] POC Subsection POC User ID [id number] Invalid Interpretation Code [facility] [place] POC Subsection POC Username [email or web address] KING Invalid Interpretation Code [facility] [place] POC Subsection CHEMISTRYOrdered By: SYSTEM SYSTEM on 01-27-2022 Albumin [Mass/Vol] 4.2 g/dL Normal 3.3 - 5.0 gm/dL [facility] Remisol Albumin/Globulin [Mass ratio] 1.0 {ratio} Low [...] Bilirubin [Mass/Vol] 0.4 mg/dL Normal 0.0 - 1.1 mg/dL [facility] Remisol Bilirubin.direct [Mass/Vol] 0.1 mg/dL Normal 0.1 - 0.4 mg/dL [facility] Remisol Bilirubin.indirect [Mass or moles/Vol] 0.3 mg/dL Normal 0.1 - 0.9 mg/dL [facility]isol Calcium [Mass/Vol] 9.4 mg/dL Normal 8.9 - 11.1 mg/dL [facility] Chloride [Moles/Vol] 102 mmol/L Normal 101 - 111 mmol/ L [facility] CO2 [Moles/Vol] 23 mmol/L Normal 21 - 31 mmol/L [facility] Creatinine [Mass/Vol] 1.1 mg/dL Normal 0.5 - 1.3 mg/d L [facility] Remisol GFR/1.73 sq M.predicted among blacks MDRD (S/P/Bld) [Vol rate/Area] 60 mL/min/1.73 m2 Normal >=59mL/min/1.73 m2 FT Chem S GFR/1.73 sq M.predicted among non-blacks MDRD (S/P/Bld) [Vol rate/Area] 50 mL/min/1.73 m2 Low >=59mL/min/1.73 m2 FT Chem S Globulin (S) [Mass/Vol] 4.3 g/dL High 1.4 - 4.0 gm/dL [facility] Remisol Glucose [Mass/Vol] 295 mg/dL High 55 - 199 mg/dL [facility] Remisol Lipase [Catalytic activity/Vol] 45 U/L Normal 13 - 58 unit/L [facility] Magnesium [Mass/Vol] 2.1 mg/dL Normal 1.3 - 2.4 mg/dL [facility] Remisol Potassium [Moles/Vol] 3.6 mmol/L Normal 3.5 - 5.3 mmol /L [facility] Remisol Protein [Mass/Vol] 8.5 g/dL High 6.0 - 7.8 gm/dL [facility] Remisol Sodium [Moles/Vol] 134 mmol/L Low 135 [...] 13.2 % Normal 10.9 - 14.2 % [facility] HemeAutoSS Hematocrit (Bld) [Volume fraction] 35.6 % Normal 34.0 - 46.0 % [facility] HemeAutoSS Hemoglobin (Bld) [Mass/Vol] 11.8 g/dL Low 12.0 - 16.0 gm/dL [facility] HemeAutoSS MCH (RBC) [Entitic mass] 28.7 pg Normal 27.0 - 34.0 pg [facility] HemeAutoSS MCHC (RBC) [Mass/Vol] 33.2 g/dL Normal 31.4 - 36.0 gm /dL [facility] HemeAutoSS MCV (RBC) [Entitic vol] 86.6 fL Normal 80.0 - 100.0 fL [facility] HemeAutoSS Platelet mean volume (Bld) [Entitic vol] 9.3 fL Normal 6.4 - 10.8 fL [facility] HemeAutoSS Platelets (Bld) [#/Vol] 155.0 E9/L Normal 150.0 - 500.0 E9/L [facility] HemeAutoSS RBC (Bld) [#/Vol] 4.1 E12/L Low 4.3 - 5.9 E12/L [facility] HemeAutoSS WBC corrected for nucl RBC Auto (Bld) [#/Vol] 9.0 E9/L Normal 4.0 - 11.0 E9/L [facility] HemeAutoSS URINALYSISOrdered By: Bridger tom on 01-27-2022 [...] PM) Normal Negative [facility] UA Auto SS [place].plasma/[place] .RBC (Bld) [Mass ratio] 0-3 /HPF Normal 0-3/HPF [facility] UA Auto SS Mucus Ql (Urine sed) Trace (01/27/22 [...] [facility] UA Auto SS Urobilinogen Qn (U) 0.9377229 {Papa'U}/dL Normal 0.0 - 1.0 EU/dL [facility] UA Auto SS WBC Auto Ql (U) Negative (01/27/22 3:30 PM) Normal Negative [facility] UA Auto SS WBC LM.HPF (Urine sed) [#/Area] 0-5 /HPF Normal 0-5/HPF [facility] UA Auto SS CHEMISTRYOrdered By: Lab ROP User on 11-17-2021 Glucose [Mass/Vol] 82 mg/dL Normal 55 - 99 mg/dL FTM C POC Subsection Comment on above: Result Comment: Lucille ronak Meter POC Device SN [id number] Invalid Interpretation Code [facility] POC Subsection POC User ID [id number] Invalid Interpretation Code FT POC Subsection POC Username BHARGAV CANO Invalid Interpretation Code FT POC Subsection Glucose [Mass/Vol] 126 mg/dL High 55 - 99 mg/dL FTM C POC Subsection POC Device SN [id number] Invalid Interpretation Code [facility] POC Subsection POC User ID [id number] Invalid Interpretation Code [facility] POC Subsection POC Username AGUSTIN GARSIA Invalid Interpretation Code [facility] POC Subsection CHEMISTRYOrdered By: SYSTEM SYSTEM on 11-17-2021 Albumin [Mass/Vol] 3.7 g/dL Normal 3.3 - 5.0 gm/dL [facility] Remisol Albumin/Globulin [Mass ratio] 1.1 {ratio} Normal [...] Bilirubin [Mass/Vol] 0.3 mg/dL Normal 0.0 - 1.1 mg/dL [facility] Calcium [Mass/Vol] 9.0 mg/dL Normal 8.9 - 11.1 mg/dL [facility] Chloride [Moles/Vol] 107 mmol/L Normal 101 - 111 mmol/ L [facility] CO2 [Moles/Vol] 18 mmol/L Low 21 - 31 mmol/L [facility] Creatinine [Mass/Vol] 1.1 mg/dL Normal 0.5 - 1.3 mg/d L [facility] Remisol GFR/1.73 sq M.predicted among blacks MDRD (S/P/Bld) [Vol rate/Area] 60 mL/min/1.73 m2 Normal >=59mL/min/1.73 m2 FT Chem S GFR/1.73 sq M.predicted among non-blacks MDRD (S/P/Bld) [Vol rate/Area] 50 mL/min/1.73 m2 Low >=59mL/min/1.73 m2 FT Chem S Globulin (S) [Mass/Vol] 3.5 g/dL Normal 1.4 - 4.0 gm/dL [facility] Remisol Glucose [Mass/Vol] 105 mg/dL Normal 55 - 199 mg/dL [facility] Lipase [Catalytic activity/Vol] 30 U/L Normal 13 - 58 unit/L [facility] Potassium [Moles/Vol] 3.2 mmol/L Low 3.5 - 5.3 mmol /L [facility] Protein [Mass/Vol] 7.2 g/dL Normal 6.0 - 7.8 gm/dL F [facility] Remisol Sodium [Moles/Vol] 136 mmol/L Normal 135 [...] 2.7 E9/L Normal 2.0 - 7.5 E9/L FT HemeAutoSS HEMATOLOGYOrdered By: Kirstin King on 11-17-2021 Erythrocyte distribution width (RBC) [Ratio] 13.5 % Normal 10.9 - 14.2 % [facility] HemeAutoSS Hematocrit (Bld) [Volume fraction] 33.1 % Low 34.0 - 46.0 % [facility] HemeAutoSS Hemoglobin (Bld) [Mass/Vol] 10.9 g/dL Low 12.0 - 16.0 gm/dL [facility] HemeAutoSS MCH (RBC) [Entitic mass] 29.2 pg Normal 27.0 - 34.0 pg [facility] HemeAutoSS MCHC (RBC) [Mass/Vol] 33.0 g/dL Normal 31.4 - 36.0 gm /dL [facility] HemeAutoSS MCV (RBC) [Entitic vol] 88.4 fL Normal 80.0 - 100.0 fL [facility] HemeAutoSS Platelet mean volume (Bld) [Entitic vol] 8.3 fL Normal 6.4 - 10.8 fL [facility] HemeAutoSS Platelets (Bld) [#/Vol] 159.0 E9/L Normal 150.0 - 500.0 E9/L [facility] HemeAutoSS RBC (Bld) [#/Vol] 3.8 E12/L Low 4.3 - 5.9 E12/L FT [...] PM) Normal Negative [facility] UA Auto SS [place].plasma/[place] .RBC (Bld) [Mass ratio] 0-3 /HPF Normal 0-3/HPF [facility] UA Auto SS Nitrite Ql (U) Negative (11/17/21 7:06 [...] [facility] UA Auto SS Urobilinogen Qn (U) [id number] {Papa'U}/dL Normal 0.0 - 1.0 EU/dL [facility] UA Auto SS WBC Auto Ql (U) Negative (11/17/21 7:06 PM) Normal Negative [facility] UA Auto SS WBC LM.HPF (Urine sed) [#/Area] 0-5 /HPF Normal 0-5/HPF [facility] UA Auto SS Vital Signs Date Time Vital Sign Value Performing Clinician Facility 09-18-2023 14:35-0400 Blood Pressure Location Marcelo Link [facility] 09-18-2023 14:35-0400 Diastolic blood pressure 76 mm[Hg] Marcelo Link [facility] 09-18-2023 14:35-0400 Heart rate 64 /min Marcelo Link [facility] 09-18-2023 14:35-0400 SaO2% (BldA) [Mass fraction] 98 % Marcelo Link [facility] 09-18-2023 14:35-0400 Systolic blood pressure 124 mm[Hg] Marcelo Link [facility] 08-07-2023 11:41-0400 Blood Pressure Location Marcelo Link [facility] 08-07-2023 11:41-0400 Diastolic blood pressure 62 mm[Hg] Marcelo Link [facility] 08-07-2023 11:41-0400 Heart rate 69 /min Marcelo Link [facility] 08-07-2023 11:41-0400 SaO2% (BldA) [Mass fraction] 97 % Marcelo Link [facility] 08-07-2023 11:41-0400 Systolic blood pressure 118 mm[Hg] Marcelo Link [facility] 07-01-2023 14:04-0400 Blood Pressure Location Marcelo Link [facility] 07-01-2023 14:04-0400 Diastolic blood pressure 78 mm[Hg] Marcelo Link [facility] 07-01-2023 14:04-0400 Heart rate 78 /min Marcelo Link [facility] 07-01-2023 14:04-0400 SaO2% (BldA) [Mass fraction] 97 % Marcelo Link [facility] 07-01-2023 14:04-0400 Systolic blood pressure 136 mm[Hg] Marcelo Call [facility] [place] 03-03-2023 13:45-0500 Body height 162.56 cm Ashish Chester Other [employer] Other 03-03-2023 13:45-0500 Body temperature 97.5 [degF] Ashish Chester Other [employer] Other 03-03-2023 13:45-0500 Diastolic blood pressure 55 mm[Hg] Ashish Chester Other [employer] Other 03-03-2023 13:45-0500 Systolic blood pressure 112 mm[Hg] Ashish Chester Other [employer] Other 02-13-2023 09:43-0500 Diastolic blood pressure 58 mm[Hg] Joaquim Rice [facility] 02-13-2023 09:43-0500 Heart rate 60 /min Joaquim Rice [facility] 02-13-2023 09:43-0500 Respiratory rate 16 /min Joaquim Ratify [facility] 02-13-2023 09:43-0500 SaO2% (BldA) [Mass fraction] 99 % Joaquim Ratify [facility] 02-13-2023 09:43-0500 Systolic blood pressure 124 mm[Hg] Joaquim Rice [facility] 02-13-2023 08:39-0500 Heart rate 57 /min Joaquim Ratify [facility] 02-13-2023 08:39-0500 SaO2% (BldA) [Mass fraction] 98 % Joaquim Ratify [facility] 02-13-2023 08:37-0500 Respiratory rate 18 /min Joaquim Rice [facility] 02-13-2023 08:37-0500 Diastolic blood pressure 73 mm[Hg] Joaquim Rice [facility] 02-13-2023 08:37-0500 Mean blood pressure 94 mm[Hg] Joaquim Rice [facility] 02-13-2023 08:37-0500 Systolic blood pressure 136 mm[Hg] Joaquim Rice [facility] 02-13-2023 08:30-0500 Blood Pressure Location Joaquim Rice [facility] 02-13-2023 08:30-0500 Body temperature 98.06 [degF] Joaquim Rice [facility] 02-13-2023 08:30-0500 Diastolic blood pressure 53 mm[Hg] Joaquim Rice [facility] 02-13-2023 08:30-0500 Heart rate 61 /min Joaquim Rice [facility] 02-13-2023 08:30-0500 Mean blood pressure 78 mm[Hg] Joaquim Rice [facility] 02-13-2023 08:30-0500 Respiratory rate 11 /min Joaquim Rice [facility] 02-13-2023 08:30-0500 SaO2% (BldA) [Mass fraction] 97 % Joaquim Rice [facility] 02-13-2023 08:30-0500 Systolic blood pressure 129 mm[Hg] Joaquim Rice [facility] 02-13-2023 08:20-0500 Blood Pressure Location Joaquim Rice [facility] 02-13-2023 08:20-0500 Mean blood pressure 76 mm[Hg] Joaquim Rice [facility] 02-13-2023 08:20-0500 Respiratory rate 9 /min Joaquim Rice [facility] 02-13-2023 08:15-0500 Blood Pressure Location Joaquim Rice [facility] 02-13-2023 08:15-0500 Mean blood pressure 76 mm[Hg] Joaquim Rice [facility] 02-13-2023 08:01-0500 Body temperature 97.16 [degF] Joaquim Rice [facility] 02-13-2023 07:55-0500 Respiratory rate 12 /min Joaquim Rice [facility] 02-13-2023 06:10-0500 Mean blood pressure 85 mm[Hg] Joaquim Rice [facility] 02-13-2023 06:09-0500 BP/Pulse Patient Position Joaquim Rice [facility] 02-13-2023 06:09-0500 Mean blood pressure 87 mm[Hg] Joaquim Rice ADVIZE [facility] 02-13-2023 06:09-0500 Heart rate 60 /min Joaquim Rice [facility] 02-13-2023 06:08-0500 Body temperature 97.7 [degF] Joaquim Ratify [facility] 02-03-2023 14:15-0500 Body height 162.56 cm Ashish Chester Other [employer] Other 02-03-2023 14:15-0500 Body temperature 97.4 [degF] Ashish Chester Other [employer] Other 02-03-2023 14:15-0500 Diastolic blood pressure 58 mm[Hg] Ashish Chester Other [employer] [employer] Other 02-03-2023 14:15-0500 Systolic blood pressure 103 mm[Hg] Ashish Chester Other [employer] Other 12-24-2022 18:02-0400 Hourly Rounding Joaquim Rice [facility] 12-24-2022 18:02-0400 Promise to Return Joaquim Rice [facility] 12-24-2022 18:00-0400 Blood Pressure Location Joaquim Rice [facility] 12-24-2022 18:00-0400 Body temperature 98.06 [degF] Joaquim Rice [facility] 12-24-2022 18:00-0400 Diastolic blood pressure 69 mm[Hg] Joaquim Rice [facility] 12-24-2022 18:00-0400 Heart rate 95 /min Joaquim Rice [facility] 12-24-2022 18:00-0400 Mean blood pressure 82 mm[Hg] Joaquim Rice [facility] 12-24-2022 18:00-0400 Respiratory rate 18 /min Joaquim Rice [facility] 12-24-2022 18:00-0400 SaO2% (BldA) [Mass fraction] 97 % Joaquim Rice [facility] 12-24-2022 18:00-0400 Systolic blood pressure 108 mm[Hg] Joaquim Rice [facility] 12-24-2022 17:41-0400 Hourly Rounding Joaquim Rice [facility] 12-24-2022 17:41-0400 Promise to Return Joaquim Rice [facility] 12-24-2022 16:00-0400 Hourly Rounding Joaquim Rice [facility] 12-24-2022 16:00-0400 Promise to Return Joaquim Rice [facility] 12-24-2022 15:43-0400 Heart rate 67 /min Joaquim Rice [facility] 12-24-2022 15:43-0400 SaO2% (BldA) [Mass fraction] 96 % Joaquim Rice [facility] 12-24-2022 15:42-0400 Body temperature 97.7 [degF] Joaquim Rice [facility] 12-24-2022 15:42-0400 Diastolic blood pressure 67 mm[Hg] Joaquim Rice [facility] 12-24-2022 15:42-0400 Mean blood pressure 87 mm[Hg] Joaquim Rice [facility] 12-24-2022 15:42-0400 Systolic blood pressure 127 mm[Hg] Joaquim Rice [facility] 12-24-2022 13:06-0400 gluc 194 mg/dL Joaquim Rice [facility] 12-24-2022 11:37-0400 Heart rate 67 /min Joaquim Rice [facility] 12-24-2022 11:37-0400 SaO2% (BldA) [Mass fraction] 95 % Joaquim Rice [facility] 12-24-2022 11:37-0400 Diastolic blood pressure 49 mm[Hg] Joaquim Rice [facility] 12-24-2022 11:37-0400 Mean blood pressure 67 mm[Hg] Joaquim Rice [facility] 12-24-2022 11:37-0400 Systolic blood pressure 103 mm[Hg] Joaquim Rice [facility] 12-24-2022 11:37-0400 Body temperature 97.7 [degF] Joaquim Rice [facility] 12-24-2022 07:39-0400 Mean blood pressure 76 mm[Hg] Joaquim Rice [facility] 12-24-2022 07:37-0400 Body temperature 97.7 [degF] Joaquim Rice [facility] 12-24-2022 02:43-0400 Respiratory rate 16 /min Joaquim Rice [facility] 12-24-2022 00:01-0400 Body temperature 99.68 [degF] Joaquim Rice [facility] 12-24-2022 00:01-0400 Respiratory rate 16 /min Joaquim Rice [facility] 12-23-2022 12:00-0400 Blood Pressure Location Joaquim Rice [facility] 12-23-2022 12:00-0400 Body temperature 97.34 [degF] Joaquim Rice [facility] 12-23-2022 12:00-0400 Heart rate 62 /min Joaquim Rice [facility] 12-22-2022 23:45-0400 gluc 123 mg/dL Joaquim Rice [facility] 12-22-2022 20:10-0400 Blood Pressure Location Joaquim Rice [facility] 09-24-2023 20:10-0400 Mean blood pressure 88 mm[Hg] Joaquim Brown [facility] 12-22-2022 12:37-0400 gluc 126 mg/dL Joaquim Brown [facility] 12-21-2022 20:00-0400 Mean blood pressure 67 mm[Hg] Joaquim Brown [facility] 12-20-2022 19:15-0400 Respiratory rate 16 /min Joaquim Brown [facility] 12-20-2022 19:00-0400 Respiratory rate 18 /min Joaquim Brown [facility] 12-20-2022 18:45-0400 Respiratory rate 11 /min Joaquim Brown [facility] 12-20-2022 16:21-0400 Heart rate 75 /min Joaquim Brown [facility] 12-19-2022 17:25-0400 Heart rate 66 /min Joaquim Brown [facility] 12-19-2022 16:52-0400 Diastolic blood pressure 46 mm[Hg] Joaquim Brown [facility] 12-19-2022 16:52-0400 Systolic blood pressure 105 mm[Hg] Joaquim Brown [facility] 11-29-2022 12:19-0400 Hourly Rounding Reymundoelver ARGUETASLIN [facility] 11-29-2022 12:19-0400 Promise to Return Reymundo JULIAN [facility] 11-29-2022 11:43-0400 Hourly Rounding Reymundo JULIAN [facility] 11-29-2022 11:43-0400 Promise to Return Reymundo JULIAN [facility] 11-29-2022 11:25-0400 Heart rate 79 /min Reymundo JULIAN [facility] 11-29-2022 11:25-0400 SaO2% (BldA) [Mass fraction] 92 % Reymundo JULIAN [facility] 11-29-2022 11:22-0400 Diastolic blood pressure 73 mm[Hg] Reymundo JULIAN [facility] 11-29-2022 11:22-0400 Mean blood pressure 97 mm[Hg] Reymundo JULIAN [facility] 11-29-2022 11:22-0400 Systolic blood pressure 143 mm[Hg] Reymundo JULIAN [facility] 11-29-2022 11:22-0400 Body temperature 98.06 [degF] Reymundo JULIAN [facility] 11-29-2022 10:33-0400 Hourly Rounding Reymundo JULIAN [facility] 11-29-2022 10:33-0400 Promise to Return Reymundo JULIAN [facility] 11-29-2022 09:40-0400 Diastolic blood pressure 75 mm[Hg] Reymundo JULIAN [facility] 11-29-2022 09:40-0400 Systolic blood pressure 160 mm[Hg] Reymundo JULIAN [facility] 11-29-2022 08:17-0400 Heart rate 83 /min Reymundo JULIAN [facility] 11-29-2022 08:17-0400 SaO2% (BldA) [Mass fraction] 93 % Reymundo JULIAN [facility] 11-29-2022 08:17-0400 Diastolic blood pressure 75 mm[Hg] Reymundo ARGUETASLIN [facility] 11-29-2022 08:17-0400 Mean blood pressure 104 mm[Hg] Reymundo ARGUETASLIN [facility] 11-29-2022 08:17-0400 Systolic blood pressure 160 mm[Hg] Reymundoelver ARGUETASLIN [facility] 11-29-2022 08:17-0400 Body temperature 97.88 [degF] Reymundoelver ARGUETASLIN [facility] 11-28-2022 23:45-0400 Blood Pressure Location Reymundo ARGUETASLIN [facility] 11-28-2022 23:45-0400 Body temperature 97.7 [degF] Reymundoelver ARGUETASLIN [facility] 11-28-2022 23:45-0400 Heart rate 68 /min Reymundoelver ARGUETASLIN [facility] 11-28-2022 23:45-0400 SaO2% (BldA) [Mass fraction] 95 % Reymundo ARGUETASLIN [facility] 11-28-2022 15:54-0400 Mean blood pressure 93 mm[Hg] Reymundo ARGUETASLIN [facility] 11-28-2022 15:54-0400 Body temperature 100.22 [degF] Reymundoelver ARGUETASLIN [facility] 11-28-2022 08:40-0400 Blood Pressure Location Reymundoelver ARGUETASLIN [facility] 11-28-2022 08:40-0400 Body temperature 97.88 [degF] Reymundoelver ARGUETASLIN [facility] 11-28-2022 08:40-0400 Mean blood pressure 86 mm[Hg] Reymundo JULIAN [facility] 11-28-2022 08:40-0400 Respiratory rate 16 /min Reymundo JULIAN [facility] 11-28-2022 00:15-0400 Blood Pressure Location Reymundo JULIAN [facility] 11-28-2022 00:15-0400 Respiratory rate 16 /min Reymundo JULIAN [facility] 11-27-2022 16:43-0400 Mean blood pressure 90 mm[Hg] Reymundo JULIAN [facility] 11-27-2022 11:40-0400 Mean blood pressure 79 mm[Hg] Reymundo JULIAN [facility] 11-27-2022 01:48-0400 Heart rate 18 /min Reymundo JULIAN [facility] 11-26-2022 16:27-0400 Heart rate 78 /min Reymundo JULIAN [facility] 11-26-2022 16:27-0400 Respiratory rate 18 /min Reymundo JULIAN [facility] 11-26-2022 11:43-0400 Heart rate 80 /min Reymundo JULIAN [facility] 11-25-2022 17:25-0400 Respiratory rate 13 /min Reymundo JULINA [facility] 11-25-2022 17:00-0400 Respiratory rate 11 /min Reymundo JULIAN [facility] 11-25-2022 05:43-0400 gluc 98 mg/dL Reymundo JULIAN [facility] 11-24-2022 19:24-0400 gluc 115 mg/dL Reymundo JORDAN [facility] 11-24-2022 19:00-0400 Heart rate 70 /min Reymundo JORDAN [facility] 11-24-2022 12:25-0400 gluc 149 mg/dL Reymundo JORDAN [facility] 10-02-2022 15:23-0400 Body temperature 97.88 [degF] Raul Arnold [facility] 10-02-2022 15:23-0400 Diastolic blood pressure 80 mm[Hg] Raul Arnold [facility] 10-02-2022 15:23-0400 Heart rate 79 /min Raul Arnold [facility] 10-02-2022 15:23-0400 Respiratory rate 16 /min Raul Arnold [facility] 10-02-2022 15:23-0400 SaO2% (BldA) [Mass fraction] 100 % Raul Arnold [facility] 10-02-2022 15:23-0400 Systolic blood pressure 133 mm[Hg] Raul Clayton [facility] 09-04-2022 21:30-0400 Diastolic blood pressure 72 mm[Hg] Hari Michelle [facility] 09-04-2022 21:30-0400 Heart rate 60 /min Hari Michelle [facility] 09-04-2022 21:30-0400 Mean blood pressure 100 mm[Hg] Hari Michelle [facility] 09-04-2022 21:30-0400 Respiratory rate 15 /min Hari Michelle [facility] 09-04-2022 21:30-0400 SaO2% (BldA) [Mass fraction] 97 % Hari Michelle [facility] 09-04-2022 21:30-0400 Systolic blood pressure 155 mm[Hg] Hari Michelle [facility] 09-04-2022 20:40-0400 Body temperature 97.52 [degF] Hari Michelle [facility] 09-04-2022 20:40-0400 Diastolic blood pressure 80 mm[Hg] Hari Michelle [facility] 09-04-2022 20:40-0400 Heart rate 67 /min Hari Michelle [facility] 09-04-2022 20:40-0400 Respiratory rate 17 /min Hari Michelle [facility] 09-04-2022 20:40-0400 SaO2% (BldA) [Mass fraction] 95 % Hari Michelle [facility] 09-04-2022 20:40-0400 Systolic blood pressure 176 mm[Hg] Hari Michelle [facility] 09-04-2022 20:25-0400 Body temperature 97.52 [degF] Hari Michelle [facility] 09-04-2022 20:25-0400 Diastolic blood pressure 75 mm[Hg] Marcelo Link [facility] 09-04-2022 20:25-0400 Heart rate 62 /min Hari Michelle [facility] 06-07-2023 20:25-0400 Respiratory rate 18 /min Hari Michelle [facility] 09-04-2022 20:25-0400 SaO2% (BldA) [Mass fraction] 99 % Hari Michelle [facility] 09-04-2022 20:25-0400 Systolic blood pressure 188 mm[Hg] Hari Michelle [facility] 09-04-2022 19:04-0400 Body temperature 97.88 [degF] Marcelo Link [facility] 09-04-2022 19:04-0400 Diastolic blood pressure 58 mm[Hg] Marcelo Link [facility] 09-04-2022 19:04-0400 Heart rate 63 /min Marcelo Link [facility] 09-04-2022 19:04-0400 Respiratory rate 15 /min Marcelo Link [facility] 09-04-2022 19:04-0400 SaO2% (BldA) [Mass fraction] 98 % Marcelo Link [facility] 09-04-2022 19:04-0400 Systolic blood pressure 139 mm[Hg] Marcelo Link [facility] 09-04-2022 18:32-0400 Body temperature 98.06 [degF] Marcelo Link [facility] 09-04-2022 18:32-0400 Diastolic blood pressure 64 mm[Hg] Marcelo Link [facility] 09-04-2022 18:32-0400 Heart rate 62 /min Marcelo Link [facility] 09-04-2022 18:32-0400 Mean blood pressure 92 mm[Hg] Marcelo Link [facility] 09-04-2022 18:32-0400 Respiratory rate 16 /min Marcelo Link [facility] 09-04-2022 18:32-0400 SaO2% (BldA) [Mass fraction] 97 % Marcelo Link [facility] 09-04-2022 18:32-0400 Systolic blood pressure 149 mm[Hg] Marcelo Link [facility] 09-04-2022 17:15-0400 Body temperature 97.7 [degF] Marcelo Link [facility] 09-04-2022 17:00-0400 Heart rate 64 /min Marcelo Link [facility] 09-04-2022 17:00-0400 Mean blood pressure 96 mm[Hg] Marcelo Link [facility] 09-04-2022 17:00-0400 Systolic blood pressure 137 mm[Hg] Marcelo Link [facility] 09-04-2022 15:10-0400 gluc 241 mg/dL Marcelo Link [facility] 09-04-2022 15:10-0400 gluc Marcelo Link [facility] 09-04-2022 15:00-0400 Hourly Rounding Marcelo Link [facility] 09-04-2022 15:00-0400 Promise to Return Marcelo Link [facility] 08-09-2022 14:34-0400 Body temperature 97.7 [degF] Raul Arnold [facility] 08-09-2022 14:29-0400 Diastolic blood pressure 64 mm[Hg] Raul Arnold [facility] 08-09-2022 14:29-0400 Heart rate 60 /min Raul Clayton [facility] 08-09-2022 14:29-0400 Mean blood pressure 88 mm[Hg] Raul Clayton [facility] 08-09-2022 14:29-0400 Respiratory rate 14 /min Raul Clayton [facility] 08-09-2022 14:29-0400 SaO2% (BldA) [Mass fraction] 95 % Raul Clayton [facility] 08-09-2022 14:29-0400 Systolic blood pressure 136 mm[Hg] Raul Clayton [facility] 08-09-2022 13:45-0400 Diastolic blood pressure 59 mm[Hg] Raul Clayton [facility] 08-09-2022 13:45-0400 Heart rate 62 /min Raul Clayton [facility] 08-09-2022 13:45-0400 Mean blood pressure 83 mm[Hg] Raul Clayton [facility] 08-09-2022 13:45-0400 Respiratory rate 10 /min Raul Clayton [facility] 08-09-2022 13:45-0400 SaO2% (BldA) [Mass fraction] 96 % Raul Clayton [facility] 08-09-2022 13:45-0400 Systolic blood pressure 130 mm[Hg] Raul Clayton [facility] 08-09-2022 13:32-0400 Body temperature 97.52 [degF] Raul Clayton [facility] 08-09-2022 13:32-0400 Diastolic blood pressure 57 mm[Hg] Raul Clayton [facility] 08-09-2022 13:32-0400 Heart rate 66 /min Raul Arnold [facility] 08-09-2022 13:32-0400 Respiratory rate 18 /min Raul Arnold [facility] 08-09-2022 13:32-0400 SaO2% (BldA) [Mass fraction] 95 % Raul Arnold [facility] 08-09-2022 13:32-0400 Systolic blood pressure 130 mm[Hg] Raulvesna Arnold [facility] 08-09-2022 12:19-0400 gluc 212 mg/dL Raulvesna Arnold [facility] 08-09-2022 12:19-0400 gluc Raul Clayton [facility] 08-09-2022 12:17-0400 Body temperature 97.88 [degF] Raul Arnold [facility] 08-09-2022 12:17-0400 Heart rate 74 /min Raul Clayton [facility] 08-09-2022 12:17-0400 Respiratory rate 16 /min Raulvesna Arnold [facility] 07-18-2022 22:45-0400 Body temperature 98.06 [degF] Kaylinn Dokken [facility] 07-18-2022 22:45-0400 Diastolic blood pressure 56 mm[Hg] Kaylinn Dokken [facility] 07-18-2022 22:45-0400 Heart rate 80 /min Kaylinn Dokken [facility] 07-18-2022 22:45-0400 Respiratory rate 18 /min Kaylinn Dokken [facility] 07-18-2022 22:45-0400 SaO2% (BldA) [Mass fraction] 97 % Jairinn Dokken [facility] 07-18-2022 22:45-0400 Systolic blood pressure 130 mm[Hg] Humaylinn Dokken [facility] 07-18-2022 22:30-0400 Body temperature 98.06 [degF] Yulyn kken [facility] 07-18-2022 22:30-0400 Diastolic blood pressure 58 mm[Hg] Jairinn Dokken [facility] 07-18-2022 22:30-0400 Heart rate 85 /min Yulyn Dokken [facility] 07-18-2022 22:30-0400 Respiratory rate 16 /min Yulyn Dokken [facility] 07-18-2022 22:30-0400 SaO2% (BldA) [Mass fraction] 95 % Yulyn Dokken [facility] 07-18-2022 22:30-0400 Systolic blood pressure 101 mm[Hg] Jairinn Dokken [facility] 07-18-2022 16:15-0400 Diastolic blood pressure 84 mm[Hg] [employer] 07-18-2022 16:15-0400 Heart rate 90 /min [employer] 07-18-2022 16:15-0400 Respiratory rate 16 /min [employer] 07-18-2022 16:15-0400 SaO2% (BldA) [Mass fraction] 98 % [employer] 07-18-2022 16:15-0400 Systolic blood pressure 135 mm[Hg] [address] 04-10-2022 11:05-0500 Diastolic blood pressure 83 mm[Hg] Callahan SALAM [facility] 04-10-2022 11:05-0500 Mean blood pressure 106 mm[Hg] Callahan SALAM [facility] 04-10-2022 11:05-0500 Systolic blood pressure 151 mm[Hg] Callahan SALAM [facility] 04-10-2022 11:02-0500 Blood Pressure Location Callahan SALAM [facility] 04-10-2022 11:02-0500 Diastolic blood pressure 86 mm[Hg] Callahan SALAM [facility] 04-10-2022 11:02-0500 Heart rate 70 /min Callahan SALAM [facility] 04-10-2022 11:02-0500 Respiratory rate 16 /min Callahan SALAM [facility] 04-10-2022 11:02-0500 SaO2% (BldA) [Mass fraction] 98 % Callahan SALAM [facility] 04-10-2022 11:02-0500 Systolic blood pressure 142 mm[Hg] Callahan SALAM [facility] 04-03-2022 18:00-0500 Diastolic blood pressure 54 mm[Hg] Raul Arnold [facility] 04-03-2022 18:00-0500 Heart rate 66 /min Raul Arnold [facility] 04-03-2022 18:00-0500 Mean blood pressure 78 mm[Hg] Raul Arnold [facility] 04-03-2022 18:00-0500 Respiratory rate 11 /min Raul Clayton [facility] 04-03-2022 18:00-0500 SaO2% (BldA) [Mass fraction] 92 % Raul Clayton [facility] 04-03-2022 18:00-0500 Systolic blood pressure 126 mm[Hg] Raul Clayton [facility] 04-03-2022 16:51-0500 Body temperature 98.24 [degF] Raul Clayton [facility] 04-03-2022 16:51-0500 Diastolic blood pressure 72 mm[Hg] Raul Clayton [facility] 04-03-2022 16:51-0500 Heart rate 72 /min Raul Clayton [facility] 04-03-2022 16:51-0500 Respiratory rate 16 /min Raul Clayton [facility] 04-03-2022 16:51-0500 SaO2% (BldA) [Mass fraction] 99 % Raul Clayton [facility] 04-03-2022 16:51-0500 Systolic blood pressure 120 mm[Hg] Raul Clayton [facility] 04-03-2022 16:36-0500 Body temperature 98.24 [degF] Raul Clayton [facility] 04-03-2022 16:36-0500 Diastolic blood pressure 52 mm[Hg] Raul Clayton [facility] 04-03-2022 16:36-0500 Heart rate 71 /min Raul Clayton [facility] 04-03-2022 16:36-0500 Respiratory rate 16 /min Raul Arnold [facility] 04-03-2022 16:36-0500 SaO2% (BldA) [Mass fraction] 99 % Raul Arnold [facility] 04-03-2022 16:36-0500 Systolic blood pressure 135 mm[Hg] Raul Arnold [facility] 04-02-2022 10:15-0500 Diastolic blood pressure 69 mm[Hg] Brady Marinelli [facility] 04-02-2022 10:15-0500 Heart rate 66 /min Brady Godfreye [facility] 04-02-2022 10:15-0500 Respiratory rate 20 /min Brady Godfreye [facility] 04-02-2022 10:15-0500 SaO2% (BldA) [Mass fraction] 97 % Brady Godfreye [facility] 04-02-2022 10:15-0500 Systolic blood pressure 150 mm[Hg] Brady Yves [facility] 04-02-2022 09:44-0500 Body temperature 97.52 [degF] Brady Yves [facility] 04-02-2022 09:44-0500 Diastolic blood pressure 81 mm[Hg] Brady Yves [facility] 04-02-2022 09:44-0500 Heart rate 64 /min Brady Yves [facility] 04-02-2022 09:44-0500 Respiratory rate 20 /min Brady Yves [facility] 04-02-2022 09:44-0500 SaO2% (BldA) [Mass fraction] 95 % Brady Yves [facility] 04-02-2022 09:44-0500 Systolic blood pressure 138 mm[Hg] Brady Marinelli [facility] 03-13-2022 19:11-0500 Diastolic blood pressure 45 mm[Hg] Raul Arnold [facility] 03-13-2022 19:11-0500 Heart rate 65 /min Raul Clayton [facility] 03-13-2022 19:11-0500 Mean blood pressure 74 mm[Hg] Raul Clayton [facility] 03-13-2022 19:11-0500 Respiratory rate 18 /min Raul Clayton [facility] 03-13-2022 19:11-0500 SaO2% (BldA) [Mass fraction] 99 % Raul Clayton [facility] 03-13-2022 19:11-0500 Systolic blood pressure 133 mm[Hg] Raul Clayton [facility] 03-13-2022 18:00-0500 Diastolic blood pressure 56 mm[Hg] Raul Clayton [facility] 03-13-2022 18:00-0500 Heart rate 66 /min Raul Clayton [facility] 03-13-2022 18:00-0500 SaO2% (BldA) [Mass fraction] 91 % Raul Clayton [facility] 03-13-2022 18:00-0500 Systolic blood pressure 171 mm[Hg] Raul Clayton [facility] 03-13-2022 16:38-0500 Body temperature 97.52 [degF] Raul Arnold [facility] 03-13-2022 16:38-0500 Diastolic blood pressure 61 mm[Hg] Raul Clayton [facility] 03-13-2022 16:38-0500 Heart rate 67 /min Raul Clayton [facility] 03-13-2022 16:38-0500 Mean blood pressure 94 mm[Hg] Raul Clayton [facility] 03-13-2022 16:38-0500 Respiratory rate 18 /min Raul Clayton [facility] 03-13-2022 16:38-0500 SaO2% (BldA) [Mass fraction] 95 % Raul Clayton [facility] 03-13-2022 16:38-0500 Systolic blood pressure 160 mm[Hg] Raul Clayton [facility] 02-08-2022 22:25-0500 Diastolic blood pressure 77 mm[Hg] Kaylinn Dokken [facility] 02-08-2022 22:25-0500 Heart rate 79 /min Kaylinn Dokken [facility] 02-08-2022 22:25-0500 Respiratory rate 18 /min Kaylinn Dokken [facility] 02-08-2022 22:25-0500 SaO2% (BldA) [Mass fraction] 96 % Kaylinn Dokken [facility] 02-08-2022 22:25-0500 Systolic blood pressure 185 mm[Hg] Kaylinn Dokken [facility] 02-08-2022 21:51-0500 Diastolic blood pressure 79 mm[Hg] Kaylinn Dokken [facility] 02-08-2022 21:51-0500 Heart rate 78 /min Ty Savageen [facility] 02-08-2022 21:51-0500 Hourly Rounding Yulyn Doreed [facility] 02-08-2022 21:51-0500 Nursing Progress Note Reason Other: Pt mediciated per orders. Call light in reach. Denies any needs at this time. Ty Savageen [facility] 02-08-2022 21:51-0500 Respiratory rate 18 /min Yulyn Husseinen [facility] 02-08-2022 21:51-0500 SaO2% (BldA) [Mass fraction] 96 % Ty Manrique [facility] 02-08-2022 21:51-0500 Systolic blood pressure 176 mm[Hg] Yulyn kken [facility] 02-08-2022 21:15-0500 Diastolic blood pressure 66 mm[Hg] Yulyn Dokken [facility] 02-08-2022 21:15-0500 Heart rate 74 /min Ty Savageen [facility] 02-08-2022 21:15-0500 Hourly Rounding Yulyn Dokkjohnny [facility] 02-08-2022 21:15-0500 Nursing Progress Note Reason Other: UA obtained and sent to lab. Ty Savageen [facility] 02-08-2022 21:15-0500 Respiratory rate 18 /min Yulyn Dokken [facility] 02-08-2022 21:15-0500 SaO2% (BldA) [Mass fraction] 96 % Ty Manrique [facility] 02-08-2022 21:15-0500 Systolic blood pressure 154 mm[Hg] Ty Manrique [facility] 02-08-2022 20:30-0500 Body temperature 98.24 [degF] Ty Manrique [facility] 02-03-2022 05:00-0500 Body temperature 98.24 [degF] Vadim Gusman [facility] 02-03-2022 05:00-0500 Diastolic blood pressure 66 mm[Hg] Vadim Naseem [facility] 02-03-2022 05:00-0500 Heart rate 63 /min Vadim Naseem [facility] 02-03-2022 05:00-0500 Mean blood pressure 95 mm[Hg] Vadim Naseem [facility] 02-03-2022 05:00-0500 Respiratory rate 13 /min Vadim Naseem [facility] 02-03-2022 05:00-0500 SaO2% (BldA) [Mass fraction] 90 % Vadim Naseem [facility] 02-03-2022 05:00-0500 Systolic blood pressure 153 mm[Hg] Vadim Naseem [facility] 02-03-2022 04:00-0500 Body temperature 98.6 [degF] Vadim Naseem [facility] 02-03-2022 04:00-0500 Diastolic blood pressure 69 mm[Hg] Vadim Naseem [facility] 02-03-2022 04:00-0500 Mean blood pressure 99 mm[Hg] Vadim Naseem [facility] 02-03-2022 04:00-0500 Respiratory rate 14 /min Vadim Naseem [facility] 02-03-2022 04:00-0500 SaO2% (BldA) [Mass fraction] 92 % Vadim Naseem [facility] 02-03-2022 04:00-0500 Systolic blood pressure 159 mm[Hg] Vadim Naseem [facility] 02-03-2022 03:00-0500 Mean blood pressure 100 mm[Hg] Vadim Naseem [facility] 02-03-2022 03:00-0500 Respiratory rate 39 /min Vadim Naseem [facility] 02-03-2022 03:00-0500 SaO2% (BldA) [Mass fraction] 91 % Vadim Naseem [facility] 02-03-2022 03:00-0500 Systolic blood pressure 163 mm[Hg] Vadim Naseem [facility] 02-03-2022 01:14-0500 gluc 186 mg/dL Vadim Naseem [facility] 02-03-2022 01:14-0500 gluc Vadim Naseem [facility] 02-03-2022 01:10-0500 Heart rate 70 /min Vadim Naseem [facility] 02-03-2022 01:10-0500 Respiratory rate 20 /min Vadim Naseem [facility] 02-02-2022 14:00-0400 Blood Pressure Location [facility] 02-02-2022 14:00-0400 BP/Pulse Patient Position [facility] 02-02-2022 14:00-0400 Respiratory rate 18 /min [facility] 02-02-2022 13:00-0400 Hourly Rounding [facility] 02-02-2022 12:33-0400 Hourly Rounding [facility] 02-02-2022 12:33-0400 Promise to Return [facility] 02-02-2022 11:09-0400 Body temperature 97.88 [degF] [facility] 02-02-2022 11:09-0400 Diastolic blood pressure 75 mm[Hg] [facility] 02-02-2022 11:09-0400 Heart rate 65 /min [facility] 02-02-2022 11:09-0400 Mean blood pressure 101 mm[Hg] [facility] 02-02-2022 11:09-0400 SaO2% (BldA) [Mass fraction] 94 % [facility] 02-02-2022 11:09-0400 Systolic blood pressure 154 mm[Hg] [facility] 02-02-2022 11:09-0400 Respiratory rate 20 /min [facility] 02-02-2022 11:00-0400 Hourly Rounding [facility] 02-02-2022 08:58-0400 Promise to Return [facility] 02-02-2022 07:29-0400 Body temperature 97.88 [degF] [facility] 02-02-2022 07:29-0400 Diastolic blood pressure 65 mm[Hg] [facility] 02-02-2022 07:29-0400 Heart rate 69 /min [facility] 02-02-2022 07:29-0400 Mean blood pressure 95 mm[Hg] [facility] 02-02-2022 07:29-0400 SaO2% (BldA) [Mass fraction] 92 % [facility] 02-02-2022 07:29-0400 Systolic blood pressure 153 mm[Hg] [facility] 02-02-2022 06:21-0400 Promise to Return [facility] 02-02-2022 02:05-0400 Body temperature 97.7 [degF] [facility] 02-02-2022 02:05-0400 Diastolic blood pressure 62 mm[Hg] [facility] 02-02-2022 02:05-0400 Heart rate 73 /min [facility] 02-02-2022 02:05-0400 Mean blood pressure 78 mm[Hg] [facility] 02-02-2022 02:05-0400 SaO2% (BldA) [Mass fraction] 93 % [facility] 02-02-2022 02:05-0400 Systolic blood pressure 112 mm[Hg] [facility] 02-01-2022 21:24-0400 gluc 261 mg/dL [facility] 02-01-2022 19:35-0400 Blood Pressure Location [facility] 02-01-2022 19:35-0400 BP/Pulse Patient Position [facility] 02-01-2022 19:35-0400 Respiratory rate 16 /min [facility] 02-01-2022 16:59-0400 gluc 225 mg/dL [facility] 02-01-2022 16:11-0400 Blood Pressure Location [facility] 02-01-2022 16:11-0400 BP/Pulse Patient Position [facility] 02-01-2022 11:11-0400 Mean blood pressure 123 mm[Hg] [facility] 02-01-2022 08:33-0400 Heart rate 78 /min [facility] 02-01-2022 08:08-0400 gluc 119 mg/dL [facility] 02-01-2022 05:20-0400 Heart rate 88 /min [facility] 02-01-2022 03:08-0400 Mean blood pressure 82 mm[Hg] [facility] 02-01-2022 01:01-0400 Mean blood pressure 88 mm[Hg] [facility] 01-31-2022 21:13-0400 Heart rate 83 /min [facility] 01-30-2022 14:00-0400 Mean blood pressure 88 mm[Hg[facility] 01-30-2022 12:19-[address] [facility] 01-30-2022 12:19-[address] [facility] 01-30-2022 12:00-0400 Body temperature 98.06 [degF] [facility] 01-30-2022 12:00-0400 Diastolic blood pressure 72 mm[Hg] [facility] 01-30-2022 12:00-0400 Heart rate 71 /min [facility] 01-30-2022 12:00-0400 SaO2% (BldA) [Mass fraction] 96 % [facility] 01-30-2022 12:00-0400 Systolic blood pressure 122 mm[Hg[facility] 01-30-2022 11:19-[address] [facility] 01-30-2022 11:19-[address] [facility] 01-30-2022 10:48-[address] [facility] 01-30-2022 10:48-[address] [facility] 01-30-2022 08:00-0400 Body temperature 97.52 [degF] [facility] 01-30-2022 08:00-0400 Diastolic blood pressure 49 mm[Hg] [facility] 01-30-2022 08:00-0400 Heart rate 79 /min ramona [facility] 01-30-2022 08:00-0400 SaO2% (BldA) [Mass fraction] 91 % [facility] 01-30-2022 08:00-0400 Systolic blood pressure 132 mm[Hg] [facility] 01-30-2022 06:00-0400 Diastolic blood pressure 46 mm[Hg[facility] 01-30-2022 06:00-0400 Heart rate 64 /min [facility] 01-30-2022 06:00-0400 Mean blood pressure 70 mm[Hg] [facility] 01-30-2022 06:00-0400 Respiratory rate 19 /min [facility] 01-30-2022 06:00-0400 SaO2% (BldA) [Mass fraction] 94 % [facility] 01-30-2022 06:00-0400 Systolic blood pressure 110 mm[Hg] [facility] 01-30-2022 05:00-0400 Respiratory rate 14 /min [facility] 01-30-2022 04:00-0400 Body temperature 97.88 [degF] [facility] 01-30-2022 04:00-0400 Mean blood pressure 73 mm[Hg] ramona [facility] 01-30-2022 00:00-0400 Body temperature 97.52 [degF] [facility] 01-29-2022 19:00-0400 Body temperature 98.06 [degF] [facility] 01-29-2022 16:31-0400 gluc 154 mg/dL [facility] 01-29-2022 11:00-0400 gluc 211 mg[facility] 01-29-[facility]22 08:00-0400 gluc 130 mg/dL [facility] 01-29-2022 07:00-0400 Blood Pressure Location [facility] 01-28-2022 19:00-0400 Respiratory rate 14 /min [facility] 01-28-2022 18:14-0400 Heart rate 73 /min [facility] 01-28-2022 18:14-0400 Respiratory rate 15 /min [facility] 01-28-2022 17:00-0400 Respiratory rate 18 /min [facility] 01-28-2022 12:01-0400 Heart rate 99 /min [facility] 01-27-2022 17:31-0400 Diastolic blood pressure 60 mm[Hg] [facility] 01-27-2022 17:31-0400 Heart rate 63 /min [facility] 01-27-2022 17:31-0400 Mean blood pressure 99 mm[Hg] [facility] 01-27-2022 17:31-0400 Respiratory rate 20 /min [facility] 01-27-2022 17:31-0400 SaO2% (BldA) [Mass fraction] 97 % [facility] 01-27-2022 17:31-0400 Systolic blood pressure 177 mm[Hg] [facility] 01-27-2022 16:59-0400 Diastolic blood pressure 81 mm[Hg] [facility] 01-27-2022 16:59-0400 Heart rate 68 /min [facility] 01-27-2022 16:59-0400 Mean blood pressure 117 mm[Hg] [facility] 01-27-2022 16:59-0400 Respiratory rate 19 /min [facility] 01-27-2022 16:59-0400 SaO2% (BldA) [Mass fraction] 97 % [facility] 01-27-2022 16:59-0400 Systolic blood pressure 190 mm[Hg] [facility] 01-27-2022 16:00-0400 Diastolic blood pressure 73 mm[Hg] [facility] 01-27-2022 16:00-0400 Mean blood pressure 106 mm[Hg] [facility] 01-27-2022 16:00-0400 SaO2% (BldA) [Mass fraction] 99 % [facility] 01-27-2022 16:00-0400 Systolic blood pressure 171 mm[Hg] [facility] 01-27-2022 14:45-0400 Body temperature 97.88 [degF] [facility] 01-27-2022 14:45-0400 Heart rate 65 /min [facility] 11-17-2021 19:35-0400 Diastolic blood pressure 83 mm[Hg] Brady Marinelli [facility] 11-17-2021 19:35-0400 Heart rate 73 /min Brady Marinelli [facility] 11-17-2021 19:35-0400 Hourly Rounding Brady Marinelli [facility] 11-17-2021 19:35-0400 Respiratory rate 18 /min Brady Marinelli [facility] 11-17-2021 19:35-0400 SaO2% (BldA) [Mass fraction] 94 % Brady Godfreye [facility] 11-17-2021 19:35-0400 Systolic blood pressure 186 mm[Hg] Brady Godfreye [facility] 11-17-2021 18:28-0400 Diastolic blood pressure 59 mm[Hg] Brady Godfreye [facility] 11-17-2021 18:28-0400 Heart rate 69 /min Brady Godfreye [facility] 11-17-2021 18:28-0400 Mean blood pressure 96 mm[Hg] Brady Godfreye [facility] 11-17-2021 18:28-0400 Respiratory rate 14 /min Brady Godfreye [facility] 11-17-2021 18:28-0400 SaO2% (BldA) [Mass fraction] 93 % Brady Godfreye [facility] 11-17-2021 18:28-0400 Systolic blood pressure 171 mm[Hg] Brady Godfreye [facility] 11-17-2021 17:30-0400 Body temperature 97.88 [degF] Brady Godfreye [facility] 11-17-2021 17:30-0400 Diastolic blood pressure 75 mm[Hg] Brady Godfreye [facility] 11-17-2021 17:30-0400 Heart rate 78 /min Brady Godfreye [facility] 11-17-2021 17:30-0400 Respiratory rate 20 /min Brady Godfreye [facility] 11-17-2021 17:30-0400 SaO2% (BldA) [Mass fraction] 95 % Brady Godfreye [facility] 11-17-2021 17:30-0400 Systolic blood pressure 144 mm[Hg] Brady Godfreye [facility] Encounters Encounter Date Encounter Type Care Provider Facility Start: 09-23-2023 End: 09-23-2023 ambulatory Lincoln D Rolando Facility:[facility] Start: 09-23-2023 End: 09-23-2023 Patient encounter procedure Lincoln Almaguer Rolando [facility] Start: 09-18-2023 End: 09-18-2023 ambulatory DO Marcelo C Link Facility:[facility] Start: 09-18-2023 End: 09-18-2023 Patient encounter procedure Marcelo C Link [facility] Start: 08-07-2023 End: 08-07-2023 ambulatory DO Marcelo C Link Facility:[facility] Start: 08-07-2023 End: 08-07-2023 Patient encounter procedure Marcelo C Link [facility] Start: 08-01-2023 End: 08-01-2023 ambulatory DO Marcelo C Link Facility:[facility] Start: 08-01-2023 End: 08-01-2023 Patient encounter procedure Marcelo C Link [facility] Start: 07-01-2023 End: 07-01-2023 ambulatory DO Marcelo C Link Facility:[facility] Start: 07-01-2023 End: 07-01-2023 Patient encounter procedure Marcelo C Link [facility] Start: 07-01-2023 End: 07-01-2023 ambulatory JOAQUIM RICE Not Available Start: 05-20-2023 End: 05-20-2023 ambulatory JOAQUIM RICE Not Available Start: 05-20-2023 End: 05-24-2023 Pre-admission assessment Joaquim Rice [facility] Start: 05-12-2023 Telephone encounter Joaquim mcgarry DO Work Phone: [facility] Start: 05-09-2023 End: 05-21-2023 Pre-admission assessment Joaquim Rice [facility] Start: 04-11-2023 End: 04-11-2023 ambulatory Joaquim Rice Facility:[facility] Start: 03-12-2023 End: 03-27-2023 Pre-admission assessment Joaquim Rice [facility] Start: 03-03-2023 End: 03-03-2023 ambulatory Ashish Chester Other [employer] Other Start: 03-03-2023 Office outpatient vi sit 25 minutes Ashish HUNTER [facility] Start: 02-13-2023 End: 02-13-2023 Admission to same day surgery center Joaquim Rice [facility] Start: 02-13-2023 End: 02-13-2023 ambulatory Joaquim Rice Facility:[facility] Start: 02-03-2023 End: 02-03-2023 ambulatory Ashish Chester Other [employer] Other Start: 02-03-2023 Office outpatient vi sit 25 minutes Ashish Chester [facility] Start: 01-13-2023 End: 01-13-2023 ambulatory Ashish Chester Other [employer] Other Start: 01-13-2023 Telephone encounter Ashish Chester [facility] Start: 12-19-2022 End: 12-24-2022 Evaluation and management of inpatient Joaquim Rice [facility] Start: 12-08-2022 End: 12-08-2022 ambulatory Emely Mccall Facility:[id number] Start: 12-08-2022 End: 12-08-2022 Off-Site [facility] Start: 12-05-2022 ambulatory Emely Cal Bondi ty:[facility] Start: 12-03-2022 End: 12-03-2022 ambulatory José B[place]MINGHAM Facility:[id number] Start: 12-03-2022 End: 12-03-2022 Off-Site [facility] Start: 11-29-2022 End: 12-19-2022 ambulatory [facility] Facility:[facility] Start: 11-24-2022 End: 11-29-2022 Evaluation and management of inpatient Soni PADGETT Facility:[facility] Start: 11-24-2022 End: 11-29-2022 Evaluation and management of inpatient Reymundo ARGUETASLIN [facility] Start: 10-02-2022 End: 10-02-2022 Emergency department patient visit Raul Arnold [facility] Start: 09-04-2022 End: 09-04-2022 Emergency department patient visit Hari Martinez [facility] Start: 09-04-2022 End: 09-04-2022 Emergency department patient visit Marcelo Call [facility] Start: 08-09-2022 End: 08-09-2022 Emergency department patient visit Raul Arnold [facility] Start: 07-18-2022 End: 07-18-2022 Emergency department patient visit Ty Manrique [facility] Start: 07-18-2022 End: 08-09-2022 ambulatory UNKNOWN PROVIDER Facility:[facility] Start: 07-18-2022 End: 07-18-2022 ambulatory [facility] Emergenc y Triage, Treat and Transport Start: 07-18-2022 End: 07-18-2022 Emergency department patient visit [facility] Emergency Triage, Treat and Transport Comment on above: Arrived Start: 04-10-2022 End: 04-10-2022 Patient encounter procedure [place] DIAZ [facility] Start: 04-03-2022 End: 04-03-2022 Emergency department patient visit Raul Arnold [facility] Start: 04-02-2022 End: 04-02-2022 Emergency department patient visit Brady Yves [facility] Start: 03-13-2022 End: 03-13-2022 Emergency department patient visit Raul Arnold [facility] Start: 03-05-2022 End: 03-05-2022 Patient encounter procedure Marcelo Rivers Link [facility] Start: 02-13-2022 End: 02-13-2022 Patient encounter procedure Marcelo Rivers Link [facility] Start: 02-08-2022 End: 02-08-2022 Emergency department patient visit Ty Manrique [facility] Start: 02-03-2022 End: 02-03-2022 Emergency department patient visit Vadim Gusman [facility] Start: 01-31-2022 End: 02-02-2022 Observation Kilo HARRIS [facility] Start: 01-29-[address] Chuck Vernon Facility: Start: 01-28-2022 End: 01-30-2022 Observation Erickmisael Hailey [facility] Start: 01-28-2022 End: 01-28-2022 Patient encounter procedure Jean Claude Schaeffer [facility] Start: 01-27-2022 End: 01-27-2022 Emergency department patient visit Earnest Robertsongriffin [facility] Start: 11-17-2021 End: 11-17-2021 Emergency department patient visit Brady Marinelli [facility] Start: 11-09-2021 End: 11-09-2021 Patient encounter procedure Marcelo C Link [facility] Start: 11-08-2021 End: 11-14-2021 Pre-admission assessment Marcelo C Link [facility] Start: 10-15-2021 End: 10-15-2021 Patient encounter procedure Marcelo C Link [facility] Procedures Date Procedure Procedure Detail [...] extensor tenodesis, splint application, mini-fluoroscopy Start: 10-31-2016 Colonoscopy Joaquim Rice DO Work Phone: Start: 10-03-2014 percutaneous pinning left hip Marcelo Call Start: 12-07-2013 left total knee replacement with hardware removal Marcelo Call Start: 06-08-2013 right total knee arthroplasty Marcelo Link Start: 12-14-2012 Right knee surgery Marcelo Call BASILAR ARTHROPLASTY OF THUMB 3 Marcelo Call Comment on above: LEFT BASILAR ARTHROPLASTY OF THUMB 4 Joaquim Rice Comment on above: LEFT Cyst - diagnostic aspiration Marcelo Link Comment on above: Left shoulder blade Extracorporeal shock wave lithotripsy of calculus of kidney Marcelo Link gallbladder removed Marcelo palomares jaw surgery Marcelo Link left knee ORIF Marcelo Link Total abdominal hyst erectomy with bilateral salpingo-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 5, 6 Marcelo Call Comment on above: 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 6, 7 Joaquim Rice Comment on above: left benign Plan of Treatment Date Care Activity Detail Author Start: 10-31-2026 Screening for malign ant neoplasm of colon [facility] Start: 11-21-2023 ambulatory Facility:[facility] Start: 11-21-2023 ambulatory Facility:[facility] Start: 11-29-2022 Influenza vaccination Influenza Vacc ine (#1) [facility] Start: 12-23-2019 Screening for malign ant neoplasm of breast Mammogram [facility] Start: 10-10-2019 Pneumococcal vaccination Pneum ococcal Vaccine(s) (65+ yrs) (1 - PCV) [facility] Start: 10-10-2019 Pneumococcal Vaccine : 65+ Years (3 - PPSV23 or PCV20) Pneumococcal Vaccine: 65+ Years (3 - PPSV23 or PCV20) [facility] Start: 10-10-2019 Screening for osteoporosis Bone Densitometry [facility] Start: 2004 Shingles (RZV) Vacci ne [...] for malign ant neoplasm of colon [facility] Immunizations Immunization Date Immunization Notes Care Provider Carley vincent 12-29-2022 influenza virus vaccine, unspecified formulation Marcelo Call [facility] [place] Comment on above: Result Comment: nurs ing home 07-30-2020 SARS-CoV-2 (COVID-19 ) mRNA BNT-162b2 vax Jean Claude Akkina [facility] 07-10-2020 SARS-CoV-2 (COVID-19 ) mRNA BNT-162b2 vax Jean Claude Akkina [facility] 03-01-2020 influenza virus vaccine, unspecified formulation Jean Claude Akkina [facility] 03-31-2019 SARS-CoV-2 (COVID-19 ) mRNA BNT-162w8 vax Marcelo Link [facility] 12-30-2018 influenza virus vaccine, unspecified formulation Jean Claude Akkina [facility] 12-30-2017 influenza virus vaccine, unspecified formulation Jean Claude Akkina [facility] 06-10-2013 pneumococcal conjuga te vaccine, 13 valent Jean Claude Akkina [facility] 06-10-2013 influenza, seasonal, injectable Marcelo Link [facility] 06-10-2013 pneumococcal polysaccharide vaccine, 23 valent Marcelo Link [facility] 10-30-2010 tetanus toxoid, redu polina diphtheria toxoid, and acellular pertussis vaccine, adsorbed Marcelo Link [facility] Comment on above: Early/Late Reason: O THER: pt was out of dept in xray NEGATED: Highlighted row has not occurred!01-19-2019 influenza virus vaccine, unspecified formulation Marcelo Link [facility] NEGATED: Highlighted row has not occurred!02-03-2016 tetanus toxoid, reduced diphtheria toxoid, and acellular pertussis vaccine, adsorbed Marcelo Link [facility] Comment on above: Result Comment: Pt. reports that she had an Adacel injection less than 5 years ago. Payers Date Payer Category Payer Medicaid [id number] 2021 Medicaid MEDICAID [place] [facility] [id number] 2021-Present [phone] [address] [place] [address] Medicaid [id number] 2021 Unknown [id number] 2012 Medicare MEDICARE MEDICAR E PART B [id number] 2012-[place] [address] Medicare [id number] 2012 Medicare [id number] 1954 Unknown [id number] 2.16.840.1.876755.3.579.2.356 1954 Unknown [id number] 2.16.840.1.493989.3.579.2.356 1954 Unknown [id number] 2.16.840.1.402340.3.579.2.732 1954 Unknown [id number] 2.16.840.1.967667.3.579.2.1259 1954 Unknown [id number] 2.16.840.1.881494.3.579.2.125 1954 Unknown [id number] 2.16.840.1.948517.3.579.2.1259 1954 Unknown [id number] 2.16.840.1.830456.3.579.2.1259 1954 Unknown [id number] 2.16.840.1.386191.3.579.2.727 1954 Unknown [id number] 2.16.840.1.499770.3.579.2.727 1954 Unknown [id number] 2.16.840.1.905908.3.579.2.727 1954 Unknown [id number] 2.16.840.1.449607.3.579.2. 1954 Unknown [id number] 2.16.840.1.778852.3.579.2.72 1954 Unknown [id number] 2.16.840.1.116410.3.579.2. 1954 Unknown [id number] 2.16.840.1.976081.3.579.2.72 1954 Unknown [id number] 2.16.840.1.906235.3.579.2. 1954 Unknown [id number] 2.16.840.1.200205.3.579.2. 1954 Unknown [id number] 2.16.840.1.417311.3.579.2. 1954 Unknown [id number] 2.16.840.1.114890.3.579.2.72 1954 Unknown [id number] 2.16.840.1.849804.3.579.2. 1954 Unknown [id number] 2.16.840.1.230421.3.579.2. 1954 Unknown [id number] 2.16.840.1.774400.3.579.2.72 1954 Unknown [id number] 2.16.840.1.099897.3.579.2.72 1954 Unknown [id number] 2.16.840.1.671037.3.579.2. Social History Date Type Detail Facility Start: 01-19-2021 End: 09-18-2023 Tobacco smoking status Never smoked tobacco (finding) [facility] Comment on above: denies Tobacco smoking status Never [facility] Comment on above: denies Start: 02-06-2023 Sex Assigned At Female F [facility] Tobacco smoking status NHIS [facility] Start: 1955 Sex Assigned At [facility] on [facility] Comment on above: denies Tobacco smoking status No Smoking Status Entered [facility] Start: 12-19-2022 Tobacco use and exposure Smokeless tobacco non-user [facility] Start: 04-10-2023 Alcohol intake Lifetime non-d charlie (finding) [facility] Start: 02-06-2023 History of Social function [facility] Medical Equipment Procedure Code Equipment Code Equipment Origin al Text Equipment Identifier Dates HIP BIPOLAR ARTHROPLASTY Joaquim Rice DO A 11/25/22 Non Biological Hip R {[id number]{ 17}[id number]{10}[id number] FDA Start: 11-25-2022 HIP TOTAL ARTHRO PLASTY REVISION Hasmukh DUVALL [...] 12-20-2022 HIP TOTAL ARTHRO PLASTY REVISION Joaquim Rcie DO A 12/20/22 Unknown Hip R FDA Start: 12-20-2022 HIP TOTAL ARTHRO PLASTY REVISION Joaquim Rcie DO A 12/20/22 Unknown Hip R FDA Start: 12-20-2022 HIP TOTAL ARTHRO PLASTY REVISION Joaquim Rice DO A 12/20/22 Unknown Hip R FDA Start: 12-20-2022 HIP TOTAL ARTHRO PLASTY REVISION Joaquim Riec DO A 12/20/22 Unknown Hip R FDA [...] 12-20-2022 Functional Status Date Assessment Result Facility 09-18-2023 Functional Status N/A [facility] 08-07-2023 Functional Status N/A [facility] 07-01-2023 Functional Status N/A [facility] 02-12-2023 Functional Status No [facility] 12-19-2022 Functional Status N/A [facility] 11-24-2022 Functional Status No [facility] 11-24-2022 Functional Status [facility] 10-02-2022 Functional Status N/A [facility] 09-04-2022 Functional Status N/A [facility] 09-04-2022 Functional Status N/A [facility] 08-09-2022 Functional Status N/A [facility] 07-18-2022 Functional Status N/A [facility] 04-10-2022 Functional Status N/A [facility] 04-03-2022 Functional Status N/A [facility] 04-02-2022 Functional Status N/A [facility] 03-13-2022 Functional Status N/A [facility] 02-08-2022 Functional Status N/A [facility] 02-03-2022 Functional Status N/A [facility] 02-01-2022 Functional Status No [facility] 01-31-2022 Functional Status [facility] 01-28-2022 Functional Status N/A [facility] 01-28-2022 Functional Status [facility] 01-27-2022 Functional Status N/A [facility] 11-17-2021 Functional Status N/A [facility] Clinical Notes 11-17-2021 to 08-01-2023 Telephone Encounter - [facility] - 05/12/2023 10:28 AM ESTTelephone Encounter - [facility] 05/12/2023 10:28 AM EST Note Date & Type Note Facility 08-01-2023 Hospital Discharg e instructions Follow Up Care 08/01/2023 10:01:14 With:Marcelo Call DO, FAM Address: [address] [address]- When:6 weeks Comments:6 WEEKS FOLLOWUP [facility] [place] 07-01-2023 Hospital Discharg e instructions Patient Education [...] your hypoglycemia. Where to find more information [employer] Association: www.diabetes.org National [place] of Diabetes and Digestive and Kidney Diseases: [...] provider. Document Revised: 02/15/2021 Document Reviewed: 02/15/2021 [employer] Patient Education 2022 [employer]. Follow Up Care 06/27/2023 11:25:55 With:Jakub Marcelo DUVALLISABELA Address: [address] [place], [place] [address]- When:4 weeks Comments:4 WEEKS FOLLOWUP [facility] [place] 05-12-2023 Telephone encount er Note Pts care home called to get a f/U appt scheduled from R Hip aspiration 04/11/[address] [facility]. Does this patient need one? If so how when would you like me to schedule this appt? Yolie [phone] (patient scheduler) [facility] 05-12-2023 Miscellaneous Notes Formattin g of this note might be different from the original. Pts care home called to get a f/U appt scheduled from R Hip aspiration 04/11/[address] [facility]. Does this patient need one? If so how when would you like me to schedule this appt? Yolie [phone] (patient scheduler) documented in this encounter [facility] 04-10-2023 Note [id number]#1.00TIFF [facility] 03-20-2023 Note [id number]#1.00TIFF [facility] 03-03-2023 Evaluation note Encounter Date Diagnosis [...] of diseases classified elsewhere (ICD-10 - B96.89) [employer] Other [id number] Evaluation + Plan noteExtracted from: Title:ANES Post-operative Note - General Author: Can Kaplan Jr., DO Date:02/13/23 Plan Transfer/Discharge: Transfer/Discharge Discharge when meets criteria ( From PACU to Ambulatory Surgery Unit, and To home ). Extracted from: Title:LESLIE Pre-operative Note - Adult Author:Can Chapa Jr., DO Date:02/13/23 Plan [employer] of Anesthesiologists (ASA) physical status classification: Class III. Anesthetic Preoperative Plan: Anesthesia General. Future Scheduled Tests Radiology* NM Gastric Emptying Study 04/10/22 [facility]11-16-2023 Hospital Discharge instructions Patient Education 02/13/2023 08:20:41 Post Op Patient Instructions - FT (Custom) (CUSTOM) 02/13/2023 07:23:07 Henri Rice - Hip Injection with Anesthesia (Custom) [place], [place] [facility] HIP INJECTION WITH ANESTHESIA [...] at the operative site, persistent vomiting. Joaquim Rice DO [facility] [address] [place] [address] Reviewed: [facility]11-06-2023 Evaluation note* Encounter Date Diagnosis [...] of diseases classified elsewhere (ICD-10 - B96.89) [employer] Other 10-31-2023 Note [id number]-2023 NoteFisher [facility] InstituteComment on above:Result Comment: printed and restickered and scanned to proper finElectronically Signed By: Joaquim Rice DO\.br\Date and Time Signed: 01/24/23 18:47 [id number] Note [id number] [facility] 12-24-2022 Hospital Discharge instructions Patient Education 12/24/2022 [...] Follow these instructions at home: Medicines Take txwr-djo-bduegnd and prescription medicines only as told by [...] and water are not available, use hand armored machine operator. Keep all follow-up visits. This is important. [...] provider. Document Revised: 02/06/2022 Document Reviewed: 02/06/2022 [employer] Patient Education 2022 [employer]. Follow Up Care 12/19/2022 11:45:54 With:Joaquim Rice Address: [address] [place] [address]- Business (1) When: Unknown Comments:Call for followup appointment With:Ashish Chester Address: [address] [place] [address] Business (1) When:2 weeks Comments:Call for followup appointment With:Marcelo Call Address: [address], [facility] [address] [place] [address]- Business (1) When: Unknown [facility]09-26-2023 Evaluation + Plan noteExtracted from: Title:APSO Note Author:FALLON BANKS, Soni Date: 67-year-old female with history of diabetes [...] Started patient on MiraLAX for constipation. Ordered: [facility] Care/Day Moderate 35 Minutes 45915 2. Acute blood loss anemia (D62: Acute posthemorrhagic anemia) From recent admission. Hemoglobin stable. Continue on ferrous sulfate. Ordered: [facility] Care/Day Moderate 35 Minutes 55973 3. 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 Ordered: [facility] Care/Day Moderate 35 Minutes 28326 4. HTN (hypertension) (I10: Essential (primary) hypertension) Blood pressure controlled. Continue on Coreg and lisinopril. Ordered: [facility] Care/Day Moderate 35 Minutes 08905 5. Hypothyroidism (E03.9: Hypothyroidism, unspecified) Stable. On Synthroid. Disposition: To care home facility when arranged. I discussed the diagnosis and plan of care with the patient at the bedside. Moderate level of MDM based on addressing above issues. This documentation was transcribed using voice recognition software. Several attempts were made to ensure accuracy. However inadvertent computerized tour escort errors may be present. Soni Padgett. Hospitalist. Ordered: [facility] Care/Day Moderate 35 Minutes [id number] Orders: bisacodyl, 10 mg = 2 tab(s), Tab-EC, Oral, Once, Stop date 12/24/22 10:00:00 EDT, Routine, Start date 12/24/22 10:00:00 EDT, 12/24/22 9:10:00 EDT polyethylene glycol 3350, 17 gram = 1 EA, Powder-Recon, Oral, Daily, Routine, Start date 12/24/22 10:00:00 EDT, 12/24/22 10:00:00 EDT Referral to Resource Center Addendum by Sarah PADGETT MD fo on December 24, 2022 15:28:26 EDT I [...] PICC line. Infectious disease consult pending. Ordered: [facility] Care/Day Moderate 35 Minutes 80644 2. Acute blood loss anemia (D62: Acute posthemorrhagic anemia) From recent admission. Hemoglobin above 7.0. No need for blood transfusion. Continue on ferrous sulfate. Ordered: [facility] Care/Day Moderate 35 Minutes 11804 3. 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 Ordered: [facility] Care/Day Moderate 35 Minutes 31185 4. HTN (hypertension) (I10: Essential (primary) hypertension) Blood pressure fairly controlled. Continue on Coreg, lisinopril. Ordered: [facility] Care/Day Moderate 35 Minutes 14218 5. Hypothyroidism (E03.9: Hypothyroidism, unspecified) Continue Synthroid. Disposition: Pending final wound culture results and final infectious disease recommendations. I discussed the diagnosis and plan of care with the patient at the bedside. Moderate level of MDM based on addressing above issues. This documentation was transcribed using voice recognition software. Several attempts were made to ensure accuracy. However inadvertent computerized tour escort errors may be present. Soni Padgett. Hospitalist. Ordered: [facility] Care/Day Moderate 35 Minutes [id number] Extracted from: Title:Progress/SOAP Note Author:Rosalia Grossman DO [...] Ordered: Initial Hospital Care/Day Moderate 55 Minutes 64687 2. 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 HTN (hypertension) (I10: Essential (primary) hypertension) On lisinopril and carvedilol from home; we also resumed her atorvastatin Ordered: Initial Hospital Care/Day Moderate 55 Minutes 59028 PLAN: 1. Patient is on daptomycin 2. [...] Author:Cruzito em MD, Ahmad F Date:12/20/22 Plan [employer] of Anesthesiologists (ASA) physical status classification: [...] Tests Radiology* NM Gastric Emptying Study 04/10/22 [facility]09-10-2023 Hospital Discharge instructions Follow Up Care 12/08/2022 11:51:54 With:Emely Mccall DO, FAM Address: When:Within 1 Month(s) [facility] 09-01-2023 Evaluation + Plan noteExtracted from: Title:Discharge Note Author:FALLON BANKS, Soni Almaguer ate:11/29/22 Stable. Discharge To, Anticipated II - Retirement Unit Discharged to - Home independently Discharge [...] Link Only if needed [address], [address] [place] [address]- Business (1) Additional Instructions: Joaquim Rice Within 2 to 4 weeks [address] [place] [address]- Business (1) Additional Instructions: Call for followup [...] physical therapy pending precertification to SNF. Ordered: [facility] Care/Day Moderate 35 Minutes 69877 2. Fall (W19.XXXA: Unspecified fall, initial encounter) Mechanical fall. Stable. Ordered: [facility] Care/Day Moderate 35 Minutes 38587 3. Acute blood loss anemia (D62: Acute posthemorrhagic anemia) Acute blood loss anemia in the perioperative period. Patient received 1 unit of packed red blood cell transfusion and hemoglobin is stable at around 8.6. She also received IV iron infusions. Continue on oral iron. Ordered: [facility] Care/Day Moderate 35 Minutes 66102 4. Hypertension (I10: Essential (primary) hypertension) Blood pressure fairly controlled. Continue on Coreg and lisinopril. [facility] Moderate 35 Minutes 44748 5. Hyperlipidemia (E78.5: Hyperlipidemia, unspecified) Stable. On Lipitor. Ordered: [facility] Care/Day Moderate 35 Minutes 39415 6. Diabetes (E11.9: Type 2 diabetes mellitus [...] for prophylactic measures, unspecified) Lovenox. Disposition: To care home facility pending precertification. I discussed the diagnosis and plan of care with the patient at the bedside. Moderate level of MDM based on addressing above issues. This documentation was transcribed using voice recognition software. Several attempts were made to ensure accuracy. However inadvertent computerized tour escort errors may be present. Soni Padgett. Hospitalist. Orders: aspirin, 162 mg = 2 tab(s), Oral, Daily, X 30 day(s), # 60 tab(s), Refills(s) 0 Extracted from: Title:APSO Note Author:FALLON BANKS, Mbanefo [...] physical therapy pending precertification to SNF. Ordered: [facility] Care/Day Moderate 35 Minutes 28187 2. Fall (W19.XXXA: Unspecified fall, initial encounter) Mechanical fall. Supportive care. Ordered: [facility] Care/Day Moderate 35 Minutes 16630 3. Acute blood loss anemia (D62: Acute posthemorrhagic anemia) Acute blood loss anemia in the perioperative period Status post 1 unit of packed red blood cell transfusion. Hemoglobin stable at 8.6. Patient received IV iron infusions. Continue on oral iron. Ordered: [facility] Care/Day Moderate 35 Minutes 70313 4. Hypertension (I10: Essential (primary) hypertension) Blood pressure fairly controlled. Continue on Coreg. We will resume lisinopril at discharge with hold parameters. Ordered: [facility] Care/Day Moderate 35 Minutes 33003 5. Hyperlipidemia (E78.5: Hyperlipidemia, unspecified) Stable. On [...] discharge as per orthopedic surgeon. Disposition: To care home facility when arranged pending precertification. I discussed the diagnosis and plan of care with the patient at the bedside. Moderate level of MDM based on addressing above issues. This documentation was transcribed using voice recognition software. Several attempts were made to ensure accuracy. However inadvertent computerized tour escort errors may be present. Soni Padgett. Hospitalist. [...] 120, # 90 tab(s), Refills(s) 0, Pharmacy: [facility], 162, cm, 01/31/22 21:16:00 EDT, Height/Length Dosing, 70.4, kg, 01/31/22 21:16:00 EDT, Weight Dosing UA With Cult Reflex Extracted from: Title:APSO Note Author:Soni PADGETT MD Date: Called [id number] [place] female with history of hypertension, [...] physical therapy pending precertification to SNF. Ordered: [facility] Care/Day Moderate 35 Minutes 25067 2. Fall (W19.XXXA: Unspecified fall, initial encounter) Mechanical fall. Supportive care. Ordered: [facility] Care/Day Moderate 35 Minutes 93978 3. Acute blood loss anemia (D62: Acute posthemorrhagic anemia) Acute blood loss anemia in the perioperative period Status post 1 unit of packed red blood cell transfusion. Patient received IV iron infusions. Continue on oral iron. Ordered: [facility] Care/Day Moderate 35 Minutes 52352 4. Hypertension (I10: Essential (primary) hypertension) Blood pressure fairly controlled. Continue on Coreg. Lisinopril on hold. Ordered: [facility] Care/Day Moderate 35 Minutes 54119 5. Hyperlipidemia (E78.5: Hyperlipidemia, unspecified) Stable. On Lipitor. Ordered: [facility] Care/Day Moderate 35 Minutes 21236 6. Diabetes (E11.9: Type 2 diabetes mellitus [...] for prophylactic measures, unspecified) Lovenox. Disposition: To care home facility when arranged. I discussed the diagnosis and plan of care with the patient at the bedside. Moderate level of MDM based on addressing above issues. This documentation was transcribed using voice recognition software. Several attempts were made to ensure accuracy. However inadvertent computerized tour escort errors may be present. Soni Padgett. Hospitalist. [...] Post Op - General Author:MD Juan , Ahmamisael F Date:11/25/22 Plan Transfer/Discharge: Transfer/Discharge Discharge when [...] Author:Cruzito em MD, Ahmad F Date:11/25/22 Plan [employer] of Anesthesiologists (ASA) physical status classification: [...] Scheduled Provider:José MENESES MD Location:Extended Care Appointment Type:[facility] Future Scheduled Tests Radiology* ID Gastric Emptying Study 04/10/22 [facility]09-01-2023 [facility]FishUP[facility] Western MarylandComment on above:Result Comment: Electronically Signed By: FALLON BANKS, Soni\.br\Date and Time Signed: 11/29/22 11:02 [id number] Hospital Discharge instructions Patient Education 11/28/2022 13:25:57 [...] your health care provider. General instructions Take dedp-cpt-nmkhuti and prescription medicines only as told by [...] provider. Document Revised: 11/17/2020 Document Reviewed: 11/17/2020 [employer] Patient Education 2021 [employer]. Follow Up Care 11/24/2022 00:36:57 With:Marcelo Call Address: [address] [facility] [place] [address]- Business (1) When: only if needed With:Joaquim Rice Address: [address] [place] [address]- Business (1) When:2 to 4 weeks Comments:Call for followup appointment [facility]08-27-2023 NoteLyle [facility] Luke InstituteComment on above:Result Comment: Electronically Signed By: Reymundo JORDAN DO\Date and Time Signed: 11/24/22 05:35 [id number] Evaluation + Plan note Extracted from: Title:ED [...] Tests Radiology* NM Gastric Emptying Study 04/10/22 [facility]06-07-2023 Hospital Discharge instructions Patient Education [...] Follow these instructions at home: Medicines Take rcye-yha-agxkcwm and prescription medicines only as told by your health care provider. Ask your health care provider if the medicine prescribed to you: ?Requires you to avoid driving or using heavy machinery. ?Can cause constipation. You may need to take these actions to prevent or treat constipation: ?Drink enough fluid to keep your urine pale yellow. ?Take mneh-lzr-azkvhyx or prescription medicines. ?Eat foods that are [...] provider. Document Revised: 11/24/2019 Document Reviewed: 11/24/2019 [employer] Patient Education 2022 [employer]. 09/04/2022 21:51:36 Head Injury, Adult Head Injury, [...] Ask your health care provider for a rsdh-mq-crug plan for gradually returning to activities. Ask [...] your friends, family, a trusted colleague, and paint factory worker about your injury, symptoms, and restrictions. Have them watch for any new or worsening problems. General instructions Take hyvu-bue-eglksvj and prescription medicines only as told by [...] provider. Document Revised: 01/28/2020 Document Reviewed: 01/28/2020 [employer] Patient Education 2022 [employer]. Follow Up Care 09/04/2022 20:22:40 With:Marcelo Link Address: [address] [place] [address] Business (1) When:Within 3 Day(s) [facility]06-07-2023 Hospital Discharge instructions Patient Education 09/04/2022 19:32:42 RICE Therapy for Routine Care of Injuries, Iilg-de-Tpqk RICE Therapy for Routine Care of Injuries [...] provider. Document Revised: 01/04/2021 Document Reviewed: 01/04/2021 [employer] Patient Education 2022 [employer]. 09/04/2022 19:32:42 Contusion, Lvmv-gr-Pyqu Contusion A contusion is a deep bruise. [...] sitting or lying down. General instructions Take nuuh-hca-ymjhubh and prescription medicines only as told by [...] is also called RICE. Youmay be given fjoo-jcw-drtbtyz medicines for pain. Contact a doctor if [...] provider. Document Revised: 01/10/2022 Document Reviewed: 01/10/2022 [employer] Patient Education 2022 [employer]. Follow Up Care 09/04/2022 15:05:18 With:Marcelo Link Address: [address] [facility] [place] [address]- Business (1) When:09/07/2022 18:53:36 Comments:Follow-up with your primary care provider in 3 to 5 days. If symptoms worsen, do not improve, or new symptoms arise please report back to emergency department for further evaluation. [facility]06-07-2023 Evaluation + Plan noteExtracted from: Title:ED Note Author:Hari Martinez DO Date :09/04/22 Closed head injury Cervical strain Future Scheduled Tests Radiology* NM Gastric Emptying Study 04/10/22 [facility]05-12-2023 Hospital Discharge instructions Patient Education [...] Ask your health care provider for a banb-bx-puug plan for gradually returning to activities. Ask [...] your friends, family, a trusted colleague, and paint factory worker about your injury, symptoms, and restrictions. Have them watch for any new or worsening problems. General instructions Take pecx-cyn-gmwlpuq and prescription medicines only as told by [...] provider. Document Revised: 01/28/2020 Document Reviewed: 01/28/2020 [employer] Patient Education 2022 [employer]. 08/09/2022 14:12:59 Fall Prevention in Hospitals, Adult [...] balance. Talk with a physical therapist or operational trainer if recommended by your health care [...] provider. Document Revised: 10/18/2020 Document Reviewed: 10/18/2020 [employer] Patient Education 2022 [employer]. Follow Up Care 08/09/2022 12:15:41 With:Marcelo Link Address: [address] [place] [address]- Business (1) When:08/12/2022 14:11:58 Comments:Call the office [...] sleep, or any new or worsening symptoms. [facility]05-12-2023 Evaluation + Plan noteExtracted from: [...] date 08/09/22 12:22:00 EDT, STAT, Start date 05/12/23 12:22:00 EDT, Infuse over 61, minute(s) Automated [...] Tests Radiology* NM Gastric Emptying Study 04/10/22 [facility]04-21-2023 Hospital Discharge instructions Patient Education [...] to strengthen the arm. General instructions Take gjbl-gxb-miytcze and prescription medicines only as told by [...] provider. Document Revised: 11/30/2021 Document Reviewed: 11/30/2021 [employer]ix Patient Education 2022 [employer]. 07/18/2022 23:33:46 Hip Pain Hip Pain The [...] activities that cause pain. General instructions Take kguo-gnt-rqimyre and prescription medicines only as told by [...] provider. Document Revised: 08/02/2019 Document Reviewed: 08/02/2019 [employer]ix Patient Education 2022 [employer]. 07/18/2022 23:33:46 Fall Prevention in the Home, Adult, Yenn-ah-Ybaz Fall Prevention in the Home, Adult Falls [...] Keep items that you use often in armp-hn-mgdej places. Lower the shelves around your home [...] of the way. Do not use floor bruneian or wax that makes floors slippery. What [...] Disease Control and Prevention, STEADI: www.cdc.gov National Ramona on Aging: www.britany.nih.gov Contact a doctor if: [...] provider. Document Revised: 12/17/2021 Document Reviewed: 10/18/2020 [employer]ix Patient Education 2022 [employer]. Follow Up Care 07/18/2022 22:27:53 With:Marcelo Link Address: [address] [place] [address]- Business (1) When:07/21/2022 Comments:Contact ibuprofen, Tylenol at home as needed for pain every 6 hours. Please follow-up with your primary care doctor in the next 2 to 3 days. Please return to the ED for any new or worsening symptoms or [facility]04-20-2023 History of Present illness Narrative* Naseem Hardy MD - 07/18/2022 4:32 PM EDT Images from the original note were not included. EMERGENCY TRIAGE, TREAT AND TRANSPORT (ET3) DOCUMENTATION OF TELEHEALTH VISIT Date / Time: 07/18/2022 / 1615 Name: Fartun Myers NOTE: CORRECT SPELLING MAY BE ZACH : 1955 SSN: (Not on file) EMS Agency: [facility] [x] Verbal consent obtained [] [...] by: Naseem Hardy MD documented in this [id number] Evaluation + Plan note Extracted from: Title:ED [...] Tests Radiology* NM Gastric Emptying Study 04/10/22 [facility]01-11-2023 Evaluation + Plan note Future Scheduled Tests Radiology* ID Gastric Emptying Study 04/10/22 [facility]01-04-2023 Hospital Discharge instructions Patient Education [...] sitting or lying down. General instructions Take jljy-thw-ltmfbin and prescription medicines only as told by [...] compression, and elevation. You may be given fkur-qtd-esvwbmv medicines for pain. Contact a health care [...] 12/25/2005 Document Revised: 11/05/2018 Document Reviewed: 11/05/2018 Ebix Patient Education 2020 [employer] Follow Up Care 04/03/2022 16:34:06 With:Marcelo Link Address: [address], [address] [place] [address]- [facility] (1) When:04/06/2022 18:32:44 Comments:Call the office of [...] you develop any new or worsening symptoms. [facility]01-04-2023 Evaluation + Plan noteExtracted from: [...] Date:04/10/2022 10:15:00 AM Scheduled Provider:London DIAZ MD Location:[facility] Digestive Health Appointment Type:[facility] Follow Up [facility]01-03-2023 Evaluation + Plan noteExtracted from: Title:ED Note Author:Brady Marinelli DO Date:04/02 Contusion of hip (S70.00XA: Contusion of unspecified hip, initial encounter) Elbow contusion (S50.00XA: Contusion of unspecified elbow, initial encounter) Orders: XR Elbow 3+ Views Left XR Hip 2-3 Views Left + Pelvis Future Appointments Appointment Date:04/10/2022 10:15:00 AM Scheduled Provider:London DIAZ MD Location:[facility] [facility] Digestive Health Appointment Type:[facility] Follow Up [facility]01-03-2023 Hospital Discharge instructions Patient Education [...] your health care provider. General instructions Take vuyc-jzz-onvvgoo and prescription medicines only as told by your health care provider. Ask your health care provider if the medicine prescribed to you: ?Requires you to avoid driving or using heavy machinery. ?Can cause constipation. You may need to take actions to prevent or treat constipation, such as: ?Drink enough fluid to keep your urine pale yellow. ?Take ydla-dyx-afegofo or prescription medicines. ?Eat foods that are [...] 11/05/2018 Document Revised: 07/08/2019 Document Reviewed: 11/05/2018 Ebix Patient Education 2020 [employer] 04/02/2022 11:03:46 Elbow Contusion Elbow Contusion [...] sling or splint to support your injury. Tprj-ewz-ikhscgl anti-inflammatory medicines, such as ibuprofen, for pain control. Sgmpu-zy-xnsyeq exercises. Follow these instructions at home: RICE [...] bath or a shower. General instructions Take meaj-jxw-ypyslnu and prescription medicines only as told by your health care provider. Return to your normal activities as told by your health care provider. Ask your health care provider what activities are safe for you. Do fptgs-op-segmwt exercises only as told by your health [...] 02/23/2007 Document Revised: 09/17/2018 Document Reviewed: 09/17/2018 [employer]ix Patient Education 2020 [employer]. Follow Up Care 04/02/2022 09:43:43 With:Marcelo Link Address: [address] [place] [address]- Business (1) When:Within 3 Day(s) [facility]12-14-2022 Hospital Discharge instructions Patient Education [...] home: Managing pain, stiffness, and swelling Take vbih-zfz-lykhwwd and prescription medicines only as told by [...] as fried and sweet foods. ?Take an trmq-nel-mqpwkpo or prescription medicine for constipation. Contact a [...] 12/10/2001 Document Revised: 05/13/2019 Document Reviewed: 04/06/2018 [employer]ix Patient Education 2020 [employer]. 03/13/2022 19:21:56 Abdominal Pain, Adult, Ykci-bx-Vxvm Abdominal Pain, Adult Many things can cause belly (abdominal) pain. Most times, belly pain is not dangerous. Many cases of belly pain can be watched and treated at home. Sometimes, though, belly pain is serious. Your doctor will try to find the cause of your belly pain. Follow these instructions at home: Medicines Take tiyl-rla-iltgpgb and prescription medicines only as told by [...] your belly pain for any changes. Take mncs-ofd-llwrbvh and prescription medicines only as told by [...] 09/02/2008 Document Revised: 07/26/2019 Document Reviewed: 07/26/2019 [employer]ix Patient Education 2019 [employer]. Follow Up Care 03/13/2022 16:37:17 With:Marcelo Link Address: [address] [place] [address]- Business (1) When:03/16/2022 19:05:35 Comments:Follow-up with your primary care provider in 3 to 5 days. If symptoms worsen, do not improve, or new symptoms arise please report back to emergency department for further evaluation. [facility]11-12-2022 Hospital Discharge instructions Patient Education [...] Follow these instructions at home: Medicines Take nsbh-gap-mpxikhh and prescription medicines only as told by [...] Watch your condition for any changes. Take wrmn-iyx-sensoow and prescription medicines only as told by [...] 12/25/2005 Document Revised: 07/26/2019 Document Reviewed: 07/26/2019 [employer] Patient Education 2019 [employer]. Follow Up Care 02/08/2022 20:29:45 With:Marcelo Call Address: [address] [place] [address] Business (1) When:02/11/2022 Comments:Attend scheduled follow-up with Dr. Call next week to discuss management of ongoing chronic pain and other symptoms [facility]11-11-2022 Evaluation + Plan noteExtracted from: Title:ED Note Author:Delbert Estrada PA-C e:02/08/22 Abdominal pain (R10.9: Unspe cified abdominal pain) Nausea (R11.0: Nausea) Orders: Automated Diff Basic Metabolic Panel Beta-hydroxybutyrate CBC w/ Auto Diff eGFR Hepatic Function Panel UA With Cult Reflex XR Abdomen 1 View Future Appointments Appointment Date:04/10/2022 10:15:00 AM Scheduled Provider:London DIAZ MD Location:[facility] [place] Digestive Health Appointment Type:[facility] Follow Up [facility]11-06-2022 Evaluation + Plan noteExtracted from: Title:ED Note Author:Vadim Gusman MD Date: 1. Medication side effect (T 88.7XXA: Unspecified adverse effect of drug or medicament, initial encounter) Orders: Automated Diff Basic Metabolic Panel CBC w/ Auto Diff eGFR Extra Blue Tube UA With Cult Reflex Future Appointments Appointment Date:04/10/2022 10:15:00 AM Scheduled Provider:London DIAZ MD Location:[facility] [place] Digestive Health Appointment Type:[facility] Follow Up [facility]11-06-2022 Hospital Discharge instructions Patient Education 02/03/2022 05:00:01 Accidental Drug Poisoning, Adult Accidental Drug Poisoning, Adult Accidental drug poisoning happens when a person accidentally takes too much of a substance, such asa prescription medicine, an raal-zso-jnllgbo medicine, a vitamin, a supplement, or an [...] medicines. Cocaine. Heroin. Multivitamins that contain iron. Shnw-kbx-gtesgcb cold and cough medicines. What increases the [...] Follow these instructions at home: Medicines Take uoan-oiw-tgtpxat and prescription medicines only as told by your health care provider. Before taking a new medicine, ask your health care provider whether the medicine: ?May cause side effects. ?Might react with other medicines. Keep a list of all the medicines that you take, including depo-atl-ehjseme medicines, vitamins, supplements, and herbs. Bring this [...] your cell phone. The hotline of the [place] Association of Poison Control Centers is . [...] a substance, such asa prescription medicine, an ovqd-vvk-tziignz medicine, a vitamin, a supplement, or an [...] 05/31/2005 Document Revised: 02/27/2018 Document Reviewed: 02/16/2018 [employer] Patient Education [employer] Follow Up Care 02/03/2022 01:08:11 With:Marcelo Link Address: [address] [place] [address]- Business (1) When:02/06/2022 only if needed [facility]11-05-2022 Evaluation + Plan noteExtracted from: Title:Discharge Note Author:DERREK BANKS, Denzel Micheal e:02/02/22 Good Discharge To, Anticipated II - Home with home health Discharged to - Other: states she has a nurse who will be coming in to help with medications and 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 Dr. Kilo Harris Hospitalist at [facility] Extracted from: Title:ED Note Author:Ty Manrique [...] Date:04/10/2022 10:15:00 AM Scheduled Provider:London DIAZ MD Location:[facility] [place] [facility] Digestive Health Appointment Type:[facility] Follow Up Diagnostic Tests Pending * Blood Gas Randall 01/31/22 [facility]11-05-2022 Hospital Discharge instructions Patient Education [...] Follow these instructions at home: Medicines Take bztu-wrm-aecdlnd and prescription medicines only as told by [...] is important. Where to find more information [place] Association of Kidney Patients: www.aakp.org National Kidney Foundation: www.kidney.org [employer] Kidney Fund: www.akfinc.org [facility]: [...] 09/30/2011 Document Revised: 02/27/2018 Document Reviewed: 03/07/2017 [employer] Patient Education 2020 [employer]. 02/02/2022 11:03:37 Acute Kidney Injury, Adult Acute [...] Follow these instructions at home: Medicines Take oybt-hdf-jzwkiiq and prescription medicines only as told by [...] is important. Where to find more information [place] Association of Kidney Patients: www.aakp.org National Kidney Foundation: www.kidney.org Swiss Kidney Fund: www.akfinc.org [facility]: [...] 09/30/2011 Document Revised: 02/27/2018 Document Reviewed: 03/07/2017 [employer] Patient Education [employer]. Follow Up Care 01/31/2022 21:09:18 With:Marcelo Link Address: [address] [facility] [address] [place] [address]- Business (1) When:02/08/2022 10:15:00 [facility]11-02-2022 Evaluation + Plan noteExtracted from: [...] Tab, 40 mg= 1 tab(s), Oral, Daily [facility] 325 mg-5 mg oral tablet, 1 tab(s), Oral, BID, PRN Paxil 10 mg Tab, 10 mg= 1 tab(s), Oral, As Directed rosuvastatin 20 mg Tab, 20 mg= 1 tab(s), Oral, Daily traZODONE 100 mg Tab, 200 mg= 2 tab(s), Oral, Once a day (at bedtime) Trulicity Pen 4.5 mg/0.5 mL subcutaneous solution, 4.5 mg, SubCutaneous, qWeek With When Contact Information NOMI WETZEL [address] [place] [address]- Business (1) Additional Instructions: Marcelo Link In 0 days [address] [place] [address]- Business (1) Additional Instructions: Form - Daily [...] Encounter for prophylactic measures, unspecified) Lovenox daily [facility]11-02-2022 Hospital Discharge instructions Patient Education [...] 02/18/2005 Document Revised: 12/29/2018 Document Reviewed: 12/13/2016 [employer] Patient Education 2020 [employer]. 01/30/2022 09:29:23 Diabetic Ketoacidosis Diabetic Ketoacidosis Diabetic [...] sugar-free liquids, such as water. Medicines Take vcvy-hmp-oiicpol and prescription medicines only as told by [...] 03/14/2001 Document Revised: 05/02/2017 Document Reviewed: 04/21/2017 [employer]ix Patient Education 2020 [employer]. 01/30/2022 09:29:22 Diabetes Mellitus and Sick Day [...] lot of sugar. Take medicines as directed Rwaj-ffnu-ped-counter and prescription medicines only as told by [...] 03/19/2004 Document Revised: 12/13/2016 Document Reviewed: 12/13/2016 [employer]ix Patient Education 2020 [employer]. 01/30/2022 09:29:20 Diabetes Mellitus and Nutrition, Adult [...] that you work with a diet and animal nutrition teacher (dietitian) tomake a meal plan that is [...] care provider. Work with a counselor or drafter landscape to identify strategies to manage stress and any emotional and social challenges. Questions to ask a health care provider Do I need to meet with a drafter landscape? Do I need to meet with a dietitian? What number can I call if I have questions? When are the best times to check my blood glucose? Where to find more information: [place] Diabetes Association: diabetes.org Academy of Nutrition and Dietetics: www.eatright.org National Ramona of Diabetes and Digestive and Kidney Diseases (NIH): www.niddk.nih.gov Summary A healthy meal plan will help you control your blood glucose and maintain a healthy lifestyle. Working with a diet and animal nutrition teacher (dietitian) can help you make a meal [...] 12/12/2005 Document Revised: 02/27/2018 Document Reviewed: 04/21/2017 [employer]ix Patient Education 2020 [employer]. 01/30/2022 09:29:19 Diabetes Mellitus and Foot Care [...] 03/14/2001 Document Revised: 04/29/2018 Document Reviewed: 04/18/2017 [employer]ix Patient Education 2020 [employer]. 01/30/2022 09:29:18 Diabetes Mellitus and Exercise Diabetes [...] plan? Your health care provider or certified nurse operating room can help you make a plan for [...] stress. Your health care provider or certified nurse operating room can help you make a plan for [...] 06/06/2004 Document Revised: 2017 Document Reviewed: 08/26/2016 [employer]ix Patient Education 2020 [employer]. Follow Up Care 01/28/2022 11:57:18 With:NOMI WETZEL Address: [address] [place] [address]- Business (1) When:02/05/2022 09:40:00 Comments:For DKA & Renal Failure With:Marcelo Link Address: [address] [facility] [place] [address]- Business (1) When:02/08/2022 10:15:00 [facility]10-30-2022 Hospital Discharge instructions Patient Education [...] oral rehydration solution (ORS). This is an zcqf-ijf-narvubg medicine that helps return your body to [...] drinks, sports drinks, and soda. Eat bland, gmga-di-voyckw foods in small amounts as you are able. These foods include bananas, applesauce, rice, lean meats, toast, and crackers. Avoid alcohol. Avoid spicy or fatty foods. Medicines Take gjix-vqa-zeqjmlp and prescription medicines only as told by your health care provider. If you were prescribed an antibiotic medicine, take it as told by your health care provider. Do notstop using the antibiotic even if you start to feel better. General instructions Wash your hands often using soap and water. If soap and water are not available, use a hand armored machine operator. Others in the household should wash their [...] soap and water are not available, usehand armored machine operator. Contact a health care provider if your diarrhea gets worse or you have new symptoms. Get help right away if you have signs of dehydration. This information is not intended to replace advice given to you by your health care provider. Make sure you discuss any questions you have with your health care provider. Document Released: 03/07/2003 Document Revised: 08/03/2019 Document Reviewed: 08/21/2018 [employer]ix Patient Education 2020 [employer]. 01/27/2022 18:13:28 Nausea and Vomiting, Adult Nausea [...] water added (diluted fruit juice). Eat bland, gyom-cl-nnbgzm foods in small amounts as you are able. These foods include bananas, applesauce, rice, lean meats, toast, and crackers. Avoid fluids that contain a lot of sugar or caffeine, such as energy drinks, sports drinks, and soda. Avoid alcohol. Avoid spicy or fatty foods. General instructions Take pjzv-zsq-nwnvbua and prescription medicines only as told by your health care provider. Drink enough fluid to keep your urine pale yellow. Wash your hands often using soap and water. If soap and water are not available, use hand armored machine operator. Make sure that all people in your [...] eating and drinking to prevent dehydration. Take hsgv-dcx-dkcyknv and prescription medicines only as told by [...] 03/17/2006 Document Revised: 07/09/2019 Document Reviewed: 08/25/2018 [employer]ix Patient Education 2019 [employer]. 01/27/2022 18:13:28 Abdominal Pain, Adult Abdominal Pain, [...] Follow these instructions at home: Medicines Take ztta-eiu-kxybszh and prescription medicines only as told by [...] Watch your condition for any changes. Take krag-wiy-hrpeqod and prescription medicines only as told by [...] 12/25/2005 Document Revised: 07/26/2019 Document Reviewed: 07/26/2019 [employer]ix Patient Education 2020 [employer] Follow Up Care 01/27/2022 14:43:33 With:London DIAZ Address: [address] [place] [id number] Business (1) When:01/30/2022 17:32:45 Comments:Return to the emergency room if your pain gets worse, you develop fever, vomiting recurs or any newsymptoms. With:Marcelo Link Address: [address] [place] [address]- Business (1) When:Within 3 Day(s) [facility]10-30-2022 Evaluation + Plan noteExtracted from: [...] PT & PTT UA With Cult Reflex [facility]08-20-2022 Hospital Discharge instructions Patient Education 11/17/2021 20:23:44 Hypoglycemia, Lsfq-bt-Ovaf Hypoglycemia Hypoglycemia is when the sugar (glucose) [...] these instructions at home: General instructions Take [id number] and prescription medicines only as told by [...] 06/11/2010 Document Revised: 07/08/2019 Document Reviewed: 04/19/2016 [employer] Patient Education 2020 [employer] Follow Up Care 11/17/2021 17:29:57 With:Marcelo Link Address: [address] [place] [address]- Business (1) When:11/20/2021 20:12:53 [facility] No data available for this section [facility] Future Appointments Appointment Date:11/13/2021 02:45:00 PM Scheduled Provider: [facility] (FT[facility] Future Appointments Appointment Date:04/10/2022 10:15:00 AM Scheduled Provider:London DIAZ MD Location:[facility] Appointment Type:BADH Follow Up [facility] Future Appointments Appointment Date:06/14/2022 12:30:00 PM Scheduled Provider: Location:[facility] Appointment Type:Surgery FT Future Scheduled Tests Radiology* NM Gastric Emptying Study 04/10/22 [facility] Evaluation + Plan note Future Appointments Appointment Date:08/01/2023 09:40:00 AM Scheduled Provider:Marcelo Call DO Location:[facility] Appointment Type:[facility] Evaluation + Plan note Future Appointments Appointment Date:08/07/2023 11:40:00 AM Scheduled Provider:Marcelo Call DO Location:[facility] Appointment Type:[facility] evaluation + Plan note Future Appointments Appointment Date:09/18/2023 02:40:00 PM Scheduled Provider:Marcelo Call DO Location:[facility] Appointment Type:[facility] Evaluation + Plan note Future Appointments Appointment Date:11/21/2023 09:30:00 AM Scheduled Provider: Location:[facility] Appointment Type: Medicare Wellness Subsequent Appointment Date:11/21/2023 10:40:00 AM Scheduled Provider:Marcelo Call DO Location:[facility] Appointment Type:[facility] evaluation note* Diagnosis Anxiety- Primary Anxiety state, unspecified documented in this encounter [facility] [employer] [employer] Other History general Narrative - Reported* Type Description Date Medical History DEPRESSION Medical History HTN Medical History ARTHRITIS Medical History DIABETES Medical History NEUROPATHY Surgical History BILATERAL KNEE REPLACEMENT Surgical History LEFT HIP Surgical History LEFT THUMB Surgical History HYSTERECTOMY Surgical History GALLBLADDER Surgical History TUMOR LEFT SHOULDER Hospitalization History SEE ABOVE [employer] Other Hospital Discharge instructions No data available for this section [facility] No data available for this section [facility] Summary Purpose Family History No [...] this section No Family History Records Found Advance Directives No Advanced Directives Records FoundNo Advanced Directives Records FoundNo Advanced Directives Records FoundNo Advanced Directives Records Found Additional Source Comments Care Team (unrecognized sect ion and content) Environmental Program Manager Relationship Specialty Start Date End Date Marcelo Call MD [address] [place] [address] PCP - General Family Medicine 12/19/22 INFORMATION SOURCE (unrecogn ized section and content) DATE CREATED AUTHOR 02/06/2022 [facility] DATE CREATED AUTHOR AUTHOR'S ORGANIZ ATION 08/11/2022 [employer] DATE CREATED AUTHOR AUTHOR'S ORGANIZ ATION 07/02/2023 [facility] DATE CREATED AUTHOR AUTHOR'S ORGANIZ ATION 10/03/2023 [facility] Reason for Visit (unrecogniz ed section and [...] BE BASED ON THE PRIMARY CLINICAL RECORDS. [facility] provides no warranty or guarantee of the accuracy or completeness of information in this document.
--- OUTSIDE RECORDS SUMMARY | 2023-10-17 09:12 | XMS_ITS | CCD ---
Author Organization [facility] CliniSywa Care Team Providers Care Health Care Recruiter Name Role Phone Marcelo Call Primary Care [...] Unavailable Marcelo Call MD Primary Care Provider [facility] Primary Care Physician Unavailab Marcelo Emerson Primary Care Physician JOAQUIM RICE Attending Unavailable JOAQUIM RICE A [...] Acetaminophen / HYDROcodone; Translations: [Vicodin] Drug Allergy [facility] Repository bacitracin / neomycin / polymyxin b (1 source) bacitracin / neomycin / polymyxin b; Translations: [bacitracin/neomy andrea/polymyxin B topical] Drug Allergy Eruption of skin (disorder) [facility] Bacitracin / Neomycin / Polymyxin B (1 source) Bacitracin / Neomycin / Polymyxin B; Translations: [Neosporin] Drug Allergy [facility] Repository Latex (1 source) Latex; Translations: [Latex] Substance Allergy [facility] Repository NSAIDs (3 sources) celecoxib; Translations: [celecoxib] Drug Allergy Eruption of skin (disorder) [facility] Penicillins (antibiotic) (4 sources) Amoxicillin; Translations: [amoxicillin] Drug Allergy Anaphylaxis (disorder) [facility] Comment on above: Tolerated ceftriaxon e several times in past Sulfonamides (antibiotic) (2 sources) Sulfamethoxazole; Translations: [sulfamethoxazole ] Drug Allergy unknown [facility] Triclosan (1 source) Triclosan; Translations: [triclosan topical] Drug Allergy Eruption of skin (disorder) [facility] (20 sources) Adhesive bandage; Translations: [Adhesive Bandage] Drug allergy Eruption of skin (disorder) [facility] (20 sources) Amoxicillin; Translations: [amoxicillin] Drug Allergy 12-20-19 Anaphylaxis (disorder), Anaphylaxis [facility] Comment on above: Tolerated ceftriaxon e several times in past (20 sources) bacitracin / neomycin / polymyxin b; Translations: [bacitracin/neomy andrea/polymyxin B topical] Drug Allergy Eruption of skin (disorder) [facility] (20 sources) celecoxib; Translations: [celecoxib] Drug Allergy Eruption of skin (disorder) [facility] (20 sources) Penicillin; Translations: [penicillin] Drug Allergy Anaphylaxis (disorder) [facility] Comment on above: Tolerated ceftriaxon e several times in past (20 sources) Sulfamethoxazole; Translations: [sulfamethoxazole ] Drug Allergy unknown [facility] (20 sources) Triclosan; Translations: [triclosan topical] Drug Allergy Eruption of skin (disorder) [facility] (20 sources) goldbond cream; Translations: [goldbond cream] Drug allergy Eruption of skin (disorder) [facility] (4 sources) Aloe Extract Drug Allergy 12-20-19 23 Unknown [facility] (4 sources) Bacitracin / Polymyxin B Drug Allergy 12-20-19 23 Rash [employer] Other (4 sources) Benzalkonium Drug Allergy 04-20-19 14 Unknown [employer] Other (4 sources) corn starch Drug Allergy 12-20-19 23 Unknown [employer] Other (4 sources) dimethicone Drug Allergy 12-20-19 Unknown [employer] Other (4 sources) Kaolin Drug Allergy 12-20-19 23 Unknown [employer] Other (3 sources) meloxicam Drug Allergy Unknown [employer] Other (4 sources) pramoxine Drug Allergy 12-20-19 23 Unknown [employer] Other (3 sources) Zinc Oxide Drug Allergy Unknown [employer] Other (4 sources) Substance with sulfonamide structure and antibacterial mechanism of action (substance) Drug allergy 12-20-19 23 Unknown [employer] Other (1 source) celecoxib Drug Allergy 04-20-19 14 Rash, Unknown [facility] (1 source) meloxicam Drug Allergy 12-20-19 [facility] (1 source) Menthol Drug Allergy 12-20-[address] [facility] (1 source) Triclosan Drug Allergy 12-20-19 Rash [facility] (1 source) Zinc oxide Allergy to substance 12-20-19 Unknown [facility] (1 source) Wound Dressing Adhesive Drug Allergy 12-20-[address] [facility] Medications Current Medications Medication Drug [...] tablet by mouth twice daily for pain Warren 325 mg-5 mg oral tablet 1 tab(s), [...] Ordered Start: 07-02-2023 take 1 tablet by [facility] every eight hours Percocet 5 mg-325 mg oral tablet 1 tab(s), Oral, q8hr, 90 tab(s), Refill(s) 0, [facility], 162.5, cm, 07/01/23 14:10:00 EDT, Height/Length Dosing, 68.8, kg, 07/01/23 14:10:00 EDT, Weight Dosing Start Date: 07/02/23 Status: Ordered Start: 07-01-2023 take 1 tablet by [facility] every six hours Percocet 5 mg-325 mg oral tablet 1 tab(s), Oral, q6hr, 120 tab(s), [facility](s) [facility], [facility], 07/01/23 14:10:00 EDT, Height/Length Dosing, 68.8, kg, 07/01/23 14:10:00 EDT, Weight Dosing Start Date: 07/01/23 Status: Ordered Start: 04-11-2023 take 1 tablet by [facility] every four hours for pain Percocet 10/325 [...] M19.9 hip fracture, 80 tab(s), Refill(s) 0, [facility], 162, cm, 11/24/22 0:45:00 EDT, Height/Length [...] for 3 day(s), 12 tab(s), Refill(s) 0, [facility], 165, cm, 03/13/22 16:40:00 EST, Height/Length [...] Start: 11-27-2022 take 2 tablets by [facility] once as needed for constipation bisacodyl 5 [...] q8hr, # 30 cap(s), Refills(s) 0, Pharmacy: [facility], 163, cm, 05/23/21 14:18:00 EST, Height/Length [...] anxiety, # 90 tab(s), Refills(s) 0, Pharmacy: [facility], 162.5, cm, 07/01/23 14:10:00 EDT, Height/Length Dosing, 68.8, kg, 07/01/23 14:10:00 EDT, Weight Dosing Start Date: 08/04/23 Status: Ordered Start: 07-01-2023 Valium 2 mg Ta b 2 mg = 1 tab(s), Oral, TID, Every 8 hours for management of anxiety, # 90 tab(s), Refills(s) 0, Pharmacy: [facility], 162.5, cm, 07/01/23 14:10:00 EDT, [...] QID, # 120 cap(s), Refills(s) 1, Pharmacy: [facility], 162.5, cm, 08/07/23 11:49:00 EDT, Height/Length Dosing, 70.9, kg, 08/07/23 11:49:00 EDT, Weight Dosing Start Date: 08/12/23 Status: Ordered Start: 08-05-[address] [facility] four times daily Bentyl 10 mg Cap 10 mg = 1 cap(s), Oral, QID, # 120 cap(s), Refills(s) 1, Pharmacy: [facility], 162.5, cm, 07/01/23 14:10:00 EDT, [...] day(s), # 28 cap(s), Refills(s) 0, Pharmacy: [facility], 165, cm, 03/13/22 16:40:00 EST, Height/Length [...] qWeek, # 2 mL, Refills(s) 11, Pharmacy: [facility], 162.5, cm, 07/01/23 14:10:00 EDT, [...] Ordered Start: 05-23-20[address] [facility] once daily esomeprazole 20 mg Cap-DR 20 mg = 1 cap(s), Oral, Daily, # 30 cap(s), Refills(s) 0, Control of stomach acid Start Date: 05/23/21 Status: Ordered take [address] [facility] once daily in the morning esomeprazole [...] TID, # 90 cap(s), Refills(s) 1, Pharmacy: [facility], 162.5, cm, 07/01/23 14:10:00 EDT, Height/Length Dosing, 68.8, kg, 07/01/23 14:10:00 EDT, Weight Dosing Start Date: 08/01/23 Status: Ordered Start: 07-01-20[address] [facility] three times daily gabapentin 300 mg Cap 300 mg = 1 cap(s), Oral, TID, # 90 cap(s), Refills(s) 1, Pharmacy: [facility], 162.5, cm, 07/01/23 14:10:00 EDT, Height/Length Dosing, 68.8, kg, 07/01/23 14:10:00 EDT, Weight Dosing Start Date: 07/01/23 Status: Ordered Start: 01-28-2022 take 800 mg by mouth three times daily gabapentin 800 mg, Oral, TID, Refills(s) 0, Neuropathy Start Date: 01/28/22 Status: Ordered Start: 02-26-[address] [facility] three times daily gabapentin 300 mg [...] bedtime), # 15 mL, Refills(s) 5, Pharmacy: [facility], 162.5, cm, 07/01/23 14:10:00 EDT, [...] Daily, # 30 tab(s), Refills(s) 1, Pharmacy: [facility], 162.5, cm, 07/01/23 14:10:00 EDT, [...] BID, 60 gram, Refill(s) 2, [facility], 162.5, cm, 08/07/23 11:49:00 EDT, Height/Length [...] Nausea/Vomiting, # 90 tab(s), Refills(s) 1, Pharmacy: [facility], 162.5, cm, 07/01/23 14:10:00 EDT, Height/Length Dosing, 68.8, kg, 07/01/23 14:10:00 EDT, Weight Dosing Start Date: 07/01/23 Status: Ordered 24 hr oxybutynin chloride 5 mg extended release oral tablet (5 sources) Cholinergic Muscarinic Antagonist Start: 07-01-2023 take 1 tablet by mouth once daily oxybutynin 5 mg ER Tab 5 mg = 1 tab(s), Oral, Daily, # 30 tab(s), Refills(s) 1, Pharmacy: [facility], 162.5, cm, 07/01/23 14:10:00 EDT, [...] Ordered Start: 08-14-2020 take 1 tablet by [facility] five times daily Paxil 10 mg Tab 50 mg = 5 tab(s), Oral, Daily, one tablet 5 times a day, Depression Start Date: 08/14/20 Status: Ordered Start: 08-14-2020 take 5 tablets by [facility] once daily Paxil 10 mg Tab 50 mg = 5 tab(s), Oral, Daily, Depression Start Date: 08/14/20 Status: Ordered take 1 tablet by [facility] every twenty-four hours reader (4 sources) Start: 07-05-2023 reader reader, See Instructions, 1 EA, 0, 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, [facility], 162.5, cm, 07/01/23 14:10:00 EDT, Height/Length [...] 2 sensors change q 14 days, [facility], 162.5, cm, 07/01/23 14:10:00 EDT, Height/Length Dosing, 68.8, kg, 07/01/23 14:10:00 EDT, Weight Dosing Start Date: 07/05/23 Status: Ordered traZODone hydrochloride 50 mg oral tablet (20 sources) Serotonin Reuptake Inhibitor Start: 08-07-2023 traZODONE 50 mg Tab 25 mg = 0.5 tab(s), Oral, Once a day (at bedtime), # 15 tab(s), Refills(s) 3, Pharmacy: [facility], 162.5, cm, 08/07/23 11:49:00 EDT, Height/Length Dosing, [...] bedtime, # 30 tab(s), Refills(s) 1, Pharmacy: [facility], 162.5, cm, 07/01/23 14:10:00 EDT, Height/Length Dosing, 68.8, kg, 07/01/23 14:10:00 EDT, Weight Dosing Start Date: 07/01/23 Status: Ordered Start: 05-23-2021 take 2 tablets by [facility] once daily at bedtime traZODONE 100 mg [...] Nausea/Vomiting, # 16 tab(s), Refills(s) 0, Pharmacy: [facility], 162.6, cm, 11/21/21 19:39:00 EDT, [...] follow instructions per packaging and physician's handout, [facility], 165, cm, 04/10/22 11:05:00 EST, Height/Length [...] 0 Active take 2 tablets by [facility] every twenty-four hours Potassium Chloride [facility] [...] above: left right Other aftercare (2 sources) 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) use of antibiotics Episodic Other and [...] 09-24-2023 US LE Venous Duplex Right Normal [facility] Consent for Treatmenton 08-30 Consent for Treatment [id number]#1.00TIFF [facility] Physician Orderon 09-22-2023 Physician Order [id number]#1.00TIFF [facility] Ambulatory Visit Summaryon 0 09-18-2023 Ambulatory Visit Summary Normal [address] [place] [address]-\.br\ Medications\.br\ What How Much When Why Instructions\.br\ [...] for choosing us for your care.\.br\ \.br\ [facility] Family Medicine Office/Clini c Noteon 09-18-2023 Family Medicine Office/Clinic Note Normal [facility] Comment on above: Result Comment: Elec tronically Signed By: Marcelo Call DO\.br\Date and Time Signed: 09/18/23 15:14 EDT Custodial Recordson 09-15 Custodial Records [id number]#1.00TIFF Normal [facility] Custodial Recordson 09-02 Custodial Records [id number]#1.00TIFF Normal [facility] Custodial Recordson 08-31 Custodial Records [id number]#1.00TIFF Normal [facility] Retail - Clinical Noteon Retail - Clinical Note [id number]#1.00TIFF Normal [facility] Custodial Recordson 08-21 Custodial Records [id number]#1.00TIFF Normal [facility] Custodial Recordson 08-19 Custodial Records [id number]#1.00TIFF Normal [facility] Custodial Records [id number]#1.00TIFF Normal [facility] Custodial Records [id number]#1.00TIFF Normal [facility] Custodial Recordson 08-11 Custodial Records [id number]#1.00TIFF Normal [facility] Physician Orderon 08-11-2023 Physician Order [id number]#1.00TIFF [facility] Ambulatory Visit Summaryon 0 5-09-2024 Ambulatory Visit Summary Normal [facility] Family Medicine Office/Clini c Noteon 08-07-2023 [facility] Medicine Office/Clinic Note Normal [facility] Comment on above: Result Comment: Elec tronically Signed By: Marcelo Call DO\.br\Date and Time Signed: 08/07/23 13:33 EDT [facility] [address] [facility] Normal [facility] deejay [facility] Retail - Clinical Noteon Retail - Clinical Note [id number]#1.00TIFF Normal [facility] Lab Reportson 07-17-2023 Lab Reports [id number]#1.00TIFF Normal [facility] Custodial Recordson 07-16 Custodial Records [id number]#1.00TIFF Normal [facility] Custodial Records [id number]#1.00TIFF Normal [facility] Custodial Records [id number]#1.00TIFF Normal [facility] Custodial Records [id number]#1.00TIFF Normal [facility] Lab Reportson 07-15-2023 Lab Reports [id number]#1.00TIFF Normal [facility] Family Medicine Office/Clini c Noteon 07-09-2023 [facility] Medicine Office/Clinic Note Normal [facility] Comment on above: Result Comment: Elec tronically Signed By: Marcelo Call DO\.br\Date and Time Signed: 07/09/23 15:53 EDT Ambulatory Visit Summaryon 0 07-01-2023 Ambulatory Visit Summary Normal [facility] Legal Correspondence Officeo n 07-01-2023 Legal Correspondence Office [id number]#1.00TIFF Normal [facility] Patient Educationon 07-01-19 Patient Education Normal [facility] Consent for Anesthesiaon Consent for Anesthesia [id number]#1.00TIFF Normal [facility] IntraOperative Documentson 0 04-17-2023 IntraOperative Documents [id number]#1.00TIFF Normal [facility] IntraOperative Documentson 0 04-15-2023 IntraOperative Documents [id number]#1.00TIFF Normal [facility] Consent for Anesthesiaon Consent for Anesthesia [id number]#1.00TIFF Normal [facility] Discharge Instructionson Discharge Instructions [id number]#1.00TIFF [facility] Main OR Intraoperative Recor don 04-14-2023 Main OR Intraoperative Record Normal [facility] Outside Recordson 04-14-2023 Outside Records [id number]#1.00TIFF Normal [facility] Preoperative Documentson Preoperative Documents [id number]#1.00TIFF Normal [facility] Capillary Glucose POCon 03-31 Glucose [Mass/Vol] 177 mg/dL High 55-99 [facility] Comment on above: Result Comment: Lucille simons Meter Performed By: #### 2 [id number] ####[facility] [address] [place] [address] Consent for Procedure/Surger yon 04-11-2023 Consent for Procedure/Surgery [id number]#1.00TIFF Normal [facility] Consent for Treatmenton 03-31 Consent for Treatment [id number]#1.00TIFF Normal [facility] Discharge Instructionson Discharge Instructions Normal [facility] Comment on above: Result Comment: Elec tronically Signed By: Edgar LEES, Arlette Eugene\.br\Date and Time Signed: 04/11/23 13:31 EST Discharge Instructions Normal [facility] Comment on above: Result Comment: Elec tronically Signed By: Jackeiln LEES, Becca Palomares\.br\Date and Time Signed: 04/11/23 13:07 EST H&P Updateon 04-11-2023 H&P Update [id number]#1.00TIFF Normal [facility] Inpatient Patient Summaryon 04-11-2023 Inpatient Patient Summary [facility] Main OR PACU I Recordon 03-31 Main OR PACU I Record Normal [facility] Monitor Recordon 04-11-2023 Monitor Record [id number]#1.00TIFF [facility] Monitor Record [id number]#1.00TIFF [facility] Operative Reporton Operative Report Normal [facility] Comment on above: Result Comment: Elec tronically Signed By: Joaquim Rice DO\.br\Date and Time Signed: 04/11/23 12:58 EST Outpatient Surgery Discharge Instructionon 04-11-2023 Outpatient Surgery Discharge Instruction Normal [facility] Patient Education - Texton 0 04-11-2023 Patient Education - Text [facility] Progress Note-Physicianon Progress Note-Physician [facility] Comment on above: Result Comment: Elec tronically Signed By: Can Kaplan Jr., DO.br\Date and Time Signed: 04/11/23 16:31 EST Progress Note-Physician [facility] Comment on above: Result Comment: Elec tronically Signed By: Can Kaplan Jr., DO.br\Date and Time Signed: 04/11/23 10:43 EST Insurance Correspondence Off iceon 04-10-2023 Insurance Correspondence Office [id number]#1.00TIFF Normal [facility] Prescriptions/Work Noteson 1 05-14-2022 Prescriptions/Work Notes [id number]#1.00TIFF Normal [facility] CHEMISTRYOrdered By: SYSTEM SYSTEM on 02-13-2023 Anion gap [Moles/Vol] 10 mmol/L Normal 6 - 16 mEq/L [facility] Remisol Chloride [Moles/Vol] 112 mmol/L High 101 - 111 mmol/ L [facility] Remisol CO2 [Moles/Vol] 21 mmol/L Normal 21 - 31 mmol/L [facility] Remisol Creatinine [Mass/Vol] 0.7 mg/dL Normal 0.5 - 1.3 mg/d L [facility] Remisol GFR/1.73 sq M.predicted among non-blacks MDRD (S/P/Bld) [Vol rate/Area] 94 mL/min/1.73 m2 Normal >=59mL/min/1.[address] [facility] Chem S Comment on above: Interpretive Data: [...] 14 mg/dL Normal 5 - 21 mg/dL [facility] Remisol CHEMISTRYOrdered By: Lab ROP User on 02-13-2023 Glucose [Mass/Vol] 149 mg/dL High 55 - 99 mg/dL FT C POC Subsection POC Username NELLY ROJAS Invalid Interpretation Code [facility] POC Subsection Sodium [Moles/Vol] 046180104322 mmol/L Invalid Interpretation Code [facility] POC Subsection Sodium [Moles/Vol] 811062132 mmol/L Invalid Interpretation Code [facility] POC Subsection HEMATOLOGYOrdered By: Gail Felix on 02-13-2023 Erythrocyte distribution width (RBC) [Ratio] 17.0 % High 10.9 - 14.2 % [facility] HemeAutoSS Hematocrit (Bld) [Volume fraction] 30.8 % Low 34.0 - 46.0 % [facility] HemeAutoSS Hemoglobin (Bld) [Mass/Vol] 9.9 g/dL Low 12.0 - 16.0 gm/dL [facility] HemeAutoSS MCH (RBC) [Entitic mass] 28.3 pg Normal 27.0 - 34.[address] [facility]eAutoSS MCHC (RBC) [Mass/Vol] 32.2 g/dL Normal 31.4 - 36.0 gm /dL [facility] HemeAutoSS MCV (RBC) [Entitic vol] 87.8 fL Normal 80.0 - 100.[address] [facility] HemeAutoSS Platelet mean volume (Bld) [Entitic vol] 8.6 fL Normal 6.4 - 10.[address] [facility]eAutoSS Platelets (Bld) [#/Vol] 200.0 E9/L Normal 150.0 - 500.0 E9/L [facility] HemeAutoSS RBC (Bld) [#/Vol] 3.5 E12/L Low 4.3 - 5.9 E12/L [facility] HemeAutoSS WBC corrected for nucl RBC Auto (Bld) [#/Vol] 8.3 E9/L Normal 4.0 - 11.0 E9/L [facility] HemeAutoSS No Panel InformationOrdered By: Pita Butterfield on 02-13-2023 GS Occasional epithelial cells Occasional White Blood Cells No organisms seen. [facility] Blood Transfusion Recordon 1 04-07-2022 Blood Transfusion Record [id number]#1.00TIFF Normal [facility] IntraOperative Documentson 1 IntraOperative Documents [id number]#1.00TIFF Normal [facility] IntraOperative Documentson 1 IntraOperative Documents [id number]#1.00CD:1 27 Normal [facility] C Blood Charcoalon 3 Blood Culture Charcoal Normal [facility] Comment on above: Performed By: #### 1 [id number] ####[facility] [address] [place] [address] Consent for PICC lineon 11-30 Consent for PICC line [id number]#1.00CD:127 [facility] Insurance Correspondence Off iceon 12-25-2022 Insurance Correspondence Office [id number]#1.00CD:12 7 Normal [facility] Custodial Recordson 12-25 Custodial Records [id number]#1.00CD:12 7 [facility] Transfer Documentson 023 Transfer Documents [id number]#1.00CD:127 Normal [facility] CHEMISTRYOrdered By: Lab ROP User on 12-24-2022 Glucose [Mass/Vol] 102 mg/dL High 55 - 99 mg/dL FTM C POC Subsection Comment on above: Result Comment: Fausto CHAUDHARY POC Username IRINA JANE Invalid Interpretation Code FT POC Subsection Sodium [Moles/Vol] 920036734175 mmol/L Invalid Interpretation Code [facility] POC Subsection Sodium [Moles/Vol] 245487762 mmol/L Invalid Interpretation Code FT POC Subsection Glucose [Mass/Vol] 194 mg/dL High 55 - 99 mg/dL FTM C POC Subsection Comment on above: Result Comment: Fausto CHAUDHARY POC Username IRINA JANE Invalid Interpretation Code [facility] POC Subsection Sodium [Moles/Vol] 486066352038 mmol/L Invalid Interpretation Code [facility] POC Subsection Sodium [Moles/Vol] 346420143 mmol/L Invalid Interpretation Code [facility] POC Subsection Glucose [Mass/Vol] 130 mg/dL High 55 - 99 mg/dL F[facility] C POC Subsection Comment on above: Result Comment: Fausto CHAUDHARY POC UsernamANTOLIN Leyva Invalid Interpretation Code [facility] POC Subsection Sodium [Moles/Vol] 318944455566 mmol/L Invalid Interpretation Code [facility] POC Subsection Sodium [Moles/Vol] 372339946 mmol/L Invalid Interpretation Code [facility] POC Subsection Capillary Glucose POCon 11-30 Glucose [Mass/Vol] 102 mg/dL High 55-99 [facility] Comment on above: Result Comment: Fausto rubi RN/ Performed By: #### 2 [id number] ####[facility] [address] [place] [address] Glucose [Mass/Vol] 194 mg/dL High 55-99 [facility] Comment on above: Result Comment: Fausto CHAUDHARY Performed By: #### 2 [id number] ####[facility] [address] [place] [address] Glucose [Mass/Vol] 130 mg/dL High 55-99 [facility] Comment on above: Result Comment: Fausto CHAUDHARY Performed By: #### 2 [id number] ####[facility] [address] [place] [address] Discharge Note-Nursingon Discharge Note-Nursing Normal [facility] Inpatient Clinical Summaryon 12-24-2022 Inpatient Clinical Summary Normal [facility] Inpatient Patient Summaryon 12-24-2022 Inpatient Patient Summary Normal [facility] Insurance Correspondence Off iceon 12-24-2022 Insurance Correspondence Office [id number]#1.00CD:12 7 Normal [facility] Interdisciplinary Note - Hardeep e Manageron 12-24-2022 Interdisciplinary Note - Thoracic Surgeon Normal [facility] Comment on above: Result Comment: Elec tronically Signed By: Radha Prabhakar\.br\Date and Time Signed: 12/24/22 15:54 EDT Progress Note-Physicianon Progress Note-Physician Normal [facility] Comment on above: Result Comment: Elec tronically Signed By: FALLON BANKS, Soni\.br\Date and Time Signed: 12/24/22 15:29 EDT Auto Diffon 12-23-2022 Basophils/100 WBC (Bld) 0.5 % Normal 0.0-2.0 [facility] Comment on above: Order Comment: Order Added by Discern Expert. Performed By: #### 2 622415, 2413471, 9004563, 8301160, 72811654, 7989200 ####[address] [place] [address] Basophils/Leukocytes Auto (Bld) [Pure # fraction] 0.0 E9/L Normal 0.0-0.2 [facility] Comment on above: Order Comment: Order Added by Discern Expert. Performed By: #### 2 006640, 1953449, 3478278, 0989320, 71280197, 2811121 ####[address] [place] [address] Eosinophils/100 WBC (Bld) 5.0 % Normal 0.0-8.0 [facility] Comment on above: Order Comment: Order Added by Discern Expert. Performed By: #### 2 615480, 5959222, 6166352, 7746430, 83480038, 2786533 ####[address] [address] Eosinophils/Leukocytes Auto (Bld) [Pure # fraction] 0.3 E9/L Normal 0.0-0.5 [facility] Comment on above: Order Comment: Order Added by Discern Expert. Performed By: #### 2 595912, 9204243, 1319839, 0611493, 89380667, 8508356 ####[address] [place] [address] Lymphocytes/100 WBC (Bld) 23.3 % Normal 14.0-50.0 [facility] Comment on above: Order Comment: Order Added by Discern Expert. Performed By: #### 2 274240, 4993364, 3804306, 8644403, 51949071, 5982164 ####[address] [place] [address] Lymphocytes/Leukocytes Auto (Bld) [Pure # fraction] 1.5 E9/L Normal 1.0-4.0 [facility] Comment on above: Order Comment: Order Added by Discern Expert. Performed By: #### 2 484579, 6277050, 1410268, 8671494, 57096616, 2741272 ####[facility] [address] [place] [address] Monocytes/100 WBC (Bld) 14.2 % High 4.0-14.0 [facility] Comment on above: Order Comment: Order Added by Discern Expert. Performed By: #### 2 101286, 7429442, 2079244, 4953235, 17044069, 2442177 ####[address] [place] [address] Monocytes/Leukocytes Auto (Bld) [Pure # fraction] 0.9 E9/L Normal 0.2-1.0 [facility] Comment on above: Order Comment: Order Added by Katherine Expert. Performed By: #### 2 837817, 6474236, 3428960, 5781019, 19180863, 4446294 ####[facility] [address] [place] [address] Neutrophils/100 WBC (Bld) 57.0 % Normal 36.0-75.0 [facility] Comment on above: Order Comment: Order Added by Discern Expert. Performed By: #### 2 003033, 6394651, 2088827, 9118151, 37247316, 1852976 ####[facility] [address] [place] [address] Neutrophils/Leukocytes Auto (Bld) [Pure # fraction] 3.6 E9/L Normal 2.0-7.5 [facility] Comment on above: Order Comment: Order Added by Katherine Expert. Performed By: #### 2 770315, 0853627, 7746338, 9454661, 50223195, 7173547 ####[facility] [address] [place] [address] BUNon 12-23-2022 Urea nitrogen [Mass/Vol] 15 mg/dL Normal 5-21 [facility] Comment on above: Performed By: #### 2 569309, 8377575, 3610224, 1733794, 89491772, 0637330 ####[facility] [address] [place] [address] C Woundon 12-23-2022 Wound Culture Normal [facility] Comment on above: Performed By: #### 2 502932 ####[address] [place] [address] Wound Culture Normal [facility] Comment on above: Performed By: #### 2 165428 ####[address] [place] [address] CBC w/ Auto Diffon Erythrocyte distribution width (RBC) [Ratio] 17.4 % High 10.9-14.2 [facility] Comment on above: Performed By: #### 2 968312, 1168443, 3720499, 0713729, 43165413, 5194452 ####[address] [place] [address] Hematocrit (Bld) [Volume fraction] 21.5 % Low 34.0-46.0 [facility] Comment on above: Performed By: #### 2 689409, 6648290, 4612839, 2811036, 12617916, 3291621 ####[address] [place] [address] Hemoglobin (Bld) [Mass/Vol] 7.1 g/dL Low 12.0-16.0 [facility] Comment on above: Performed By: #### 2 362195, 2743521, 7811609, 0414254, 76128925, 9002903 ####[address] [place] [address] MCH (RBC) [Entitic mass] 28.2 pg Normal 27.0-34.0 [facility] Comment on above: Performed By: #### 2 111332, 7748024, 2933230, 0657164, 03842410, 4376883 ####[address] MCHC (RBC) [Mass/Vol] 32.9 g/dL Normal 31.4-36.0 [facility] Comment on above: Performed By: #### 2 598362, 7397696, 8547016, 2396309, 50501822, 9259539 ####[address] MCV (RBC) [Entitic vol] 85.7 fL Normal 80.0-100.0 [facility] Comment on above: Performed By: #### 2 334232, 3652349, 8545101, 8667250, 19955133, 6585041 ####[address] Platelet mean volume (Bld) [Entitic vol] 7.7 fL Normal 6.4-10.8 [facility] Comment on above: Performed By: #### 2 748963, 0676930, 9685534, 0265419, 66181035, 7475629 ####[id number] Platelets (Bld) [#/Vol] 316.0 E9/L Normal 150.0-500.0 [facility] Comment on above: Performed By: #### 2 013780, 5052748, 2640873, 0632583, 89413112, 1736144 ####[id number] RBC (Bld) [#/Vol] 2.5 E12/L Low 4.3-5.9 [facility] Comment on above: Performed By: #### 2 824524, 2078909, 9298834, 1425600, 25394196, 5550968 ####[address] [address] WBC corrected for nucl RBC Auto (Bld) [#/Vol] 6.3 E9/L Normal 4.0-11.0 [facility] Comment on above: Performed By: #### 2 655399, 5008914, 5791324, 5102809, 16020241, 3632131 ####[facility] [address] [place] [address] CHEMISTRYOrdered By: SYSTEM SYSTEM on 12-23-2022 Anion gap [Moles/Vol] 1 mmol/L Low 6 - 16 mEq/L [facility] Remisol Chloride [Moles/Vol] 119 mmol/L High 101 - 111 mmol/ L [facility] Remisol CO2 [Moles/Vol] 25 mmol/L Normal 21 - 31 mmol/L [facility] Remisol Creatinine [Mass/Vol] 0.7 mg/dL Normal 0.5 - 1.3 mg/d L [facility] Remisol GFR/1.73 sq M.predicted among non-blacks MDRD (S/P/Bld) [Vol rate/Area] 94 mL/min/1.73 m2 Normal >=59mL/min/1.[address] [facility] Chem S Comment on above: Interpretive Data: C hronic kidney disease could be indicated at eGFR's of less than 60 mL/min/1.73m2. Kidney failure is indicated at less than 15 mL/min/1.73m2. Potassium [Moles/Vol] 4.0 mmol/L Normal 3.5 - 5.3 mmol /L [facility] Remisol Sodium [Moles/Vol] 141 mmol/L Normal 135 - 145 mmol/L [facility] Remisol Urea nitrogen [Mass/Vol] 15 mg/dL Normal 5 - 21 mg/dL [facility] Remisol Capillary Glucose POCon 11-30 Glucose [Mass/Vol] 189 mg/dL High 55-99 [facility] Comment on above: Result Comment: Fausto CHAUDHARY Performed By: #### 2 19697033 ####[facility] [address] [place] [address] Glucose [Mass/Vol] 118 mg/dL High 55-99 [facility] Comment on above: Result Comment: Fausto CHAUDHARY Performed By: #### 2 36732442 ####[facility] [address] [place] [address] Glucose [Mass/Vol] 105 mg/dL High 55-99 [facility] Comment on above: Result Comment: Fausto CHAUDHARY Performed By: #### 2 60704522 ####[facility] [address] [place] [address] Glucose [Mass/Vol] 104 mg/dL High 55-99 [facility] Comment on above: Result Comment: Fausto CHAUDHARY Performed By: #### 2 46908721 ####[facility] [address] [place] [address] Consent for Anesthesiaon Consent for Anesthesia [id number]#1.00CD:12 7 Normal [facility] Consent for Blood Transfusio non 12-23-2022 Consent for Blood Transfusion [id number]#1.00CD:12 7 Normal [facility] Consent for Procedure/Surger yon 12-23-2022 Consent for Procedure/Surgery [id number]#1.00CD:12 7 Normal [facility] Consent for Treatmenton 11-30 Consent for Treatment [id number]#1.00CD:12 7 Normal [facility] Creatinineon 12-23-2022 Creatinine [Mass/Vol] 0.7 mg/dL Normal 0.5-1.3 [facility] Comment on above: Performed By: #### 2 637754, 8190373, 6795335, 8661693, 23448913, 1617533 ####[facility] [address] [place] [address] HEMATOLOGYOrdered By: SYSTEM SYSTEM on 12-23-2022 Basophils/100 [...] 2.5 E12/L Low 4.3 - 5.9 E12/L [facility] HemeAutoSS WBC corrected for nucl RBC Auto (Bld) [#/Vol] 6.3 E9/L Normal 4.0 - 11.0 E9/L [facility] HemeAutoSS Interdisciplinary Note - Hardeep e Manageron 12-23-2022 Interdisciplinary Note - Thoracic Surgeon Normal [facility] Comment on above: Result Comment: Elec tronically Signed By: Kirstin Meyer\Date and Time Signed: 12/23/22 14:46 EDT IntraOperative Documentson 0 12-23-2022 IntraOperative Documents [id number]#1.00CD:12 7 Normal [facility] IntraOperative Documents [id number]#1.00CD:12 7 Normal [facility] Lyteson 12-23-2022 Anion gap [Moles/Vol] 1 mmol/L Low 6-16 [facility] Comment on above: Performed By: #### 2 830401, 5797344, 5102988, 3213874, 71185020, 3828996 ####[facility] [address] [place] [address] Chloride [Moles/Vol] 119 mmol/L High 101-111 [facility] Comment on above: Performed By: #### 2 263727, 9130583, 1716624, 5900494, 02603356, 8721754 ####[facility] [address] [place] [address] CO2 [Moles/Vol] 25 mmol/L Normal 21-31 [facility] Comment on above: Performed By: #### 2 324224, 9629254, 9582745, 3689467, 22888848, 3165961 ####[facility] [address] [place] [address] Potassium [Moles/Vol] 4.0 mmol/L Normal 3.5-5.3 [facility] Comment on above: Performed By: #### 2 012772, 6770973, 0711491, 7561588, 04460886, 3203449 ####[facility] [address] [place] [address] Sodium [Moles/Vol] 141 mmol/L Normal 135-145 [facility] Comment on above: Performed By: #### 2 231395, 2635549, 5326495, 2291025, 72006137, 6894604 ####[facility] [address] [place] [address] Main OR Intraoperative Recor don 12-23-2022 Main OR Intraoperative Record Normal [facility] Progress Note-Physicianon Progress Note-Physician Normal [facility] Comment on above: Result Comment: Elec tronically Signed By: Joaquim Rice DO\.br\Date and Time Signed: 12/23/22 19:04 EDT Progress Note-Physician Normal [facility] Comment on above: Result Comment: Elec tronically Signed By: Soni PADGETT MD\.br\Date and Time Signed: 12/23/22 10:01 EDT XR Chest Single Viewon 12-23 XR Chest Single View Normal [facility] eGFRon 12-23-2022 GFR/1.73 sq M.predicted among non-blacks MDRD (S/P/Bld) [Vol rate/Area] 94 mL/min/1.73 m2 Normal >=59 [facility] Comment on above: Order Comment: Order added by Discern Expert. Result Comment: Computer Repair Instructor marquez kidney disease could be indicated at eGFR's of less than 60 mL/min/1.73m2. Kidney failure is indicated at less than 15 mL/min/1.73m2. Performed By: #### 2 787322, 0552184, 9934483, 1518442, 83689801, 4556642 ####[facility] [address] [place] [address] Auto Diffon 12-22-2022 Basophils/100 WBC (Bld) 0.5 % Normal 0.0-2.0 [facility] Comment on above: Order Comment: Order Added by Discern Expert. Performed By: #### 2 563172, 0335543, 1713017, 58729131, 0962045, 4932522 ####[facility] [address] [place] [address] Basophils/Leukocytes Auto (Bld) [Pure # fraction] 0.0 E9/L Normal 0.0-0.2 [facility] Comment on above: Order Comment: Order Added by Discern Expert. Performed By: #### 2 665472, 8932175, 6085906, 81829452, 2301633, 3385243 ####[address] [place] [address] Eosinophils/100 WBC (Bld) 1.1 % Normal 0.0-8.0 [facility] Comment on above: Order Comment: Order Added by Discern Expert. Performed By: #### 2 911778, 6619842, 1520413, 88163700, 6793109, 7912409 ####[address] [address] Eosinophils/Leukocytes Auto (Bld) [Pure # fraction] 0.1 E9/L Normal 0.0-0.5 [facility] Comment on above: Order Comment: Order Added by Discern Expert. Performed By: #### 2 634030, 0640684, 3015248, 40944500, 2041394, 3445442 ####[address] [address] Lymphocytes/100 WBC (Bld) 20.4 % Normal 14.0-50.0 [facility] Comment on above: Order Comment: Order Added by Discern Expert. Performed By: #### 2 532044, 1513872, 8239729, 66482738, 3133419, 3218776 ####[address] [place] [address] Lymphocytes/Leukocytes Auto (Bld) [Pure # fraction] 1.5 E9/L Normal 1.0-4.0 [facility] Comment on above: Order Comment: Order Added by Discern Expert. Performed By: #### 2 272101, 4629638, 4977604, 84965992, 0534299, 5285004 ####[facility] [address] [place] [address] Monocytes/100 WBC (Bld) 11.4 % Normal 4.0-14.0 [facility] Comment on above: Order Comment: Order Added by Discern Expert. Performed By: #### 2 028237, 0823650, 3560476, 95030204, 3441701, 6048815 ####[facility] [address] [place] [address] Monocytes/Leukocytes Auto (Bld) [Pure # fraction] 0.9 E9/L Normal 0.2-1.0 [facility] Comment on above: Order Comment: Order Added by Katherine Expert. Performed By: #### 2 428991, 5760215, 2731618, 88634799, 9360838, 7696219 ####[address] [place] [address] Neutrophils/100 WBC (Bld) 66.6 % Normal 36.0-75.0 [facility] Comment on above: Order Comment: Order Added by Discern Expert. Performed By: #### 2 093461, 3650376, 1651720, 16033303, 6583590, 9987805 ####[address] [place] [address] Neutrophils/Leukocytes Auto (Bld) [Pure # fraction] 5.0 E9/L Normal 2.0-7.5 [facility] Comment on above: Order Comment: Order Added by Discern Expert. Performed By: #### 2 480654, 6309386, 8395731, 88135492, 8772822, 5028114 ####[facility] [address] [place] [address] BUNon 12-22-2022 Urea nitrogen [Mass/Vol] 21 mg/dL Normal 5-21 [facility] Comment on above: Performed By: #### 2 863287, 5983242, 3908119, 21780898, 4903609, 8931396 ####[facility] [address] [place] [address] CBC w/ Auto Diffon 3 Erythrocyte distribution width (RBC) [Ratio] 17.5 % High 10.9-14.2 [facility] Comment on above: Performed By: #### 2 713731, 0519528, 7235431, 03491334, 5096584, 5492426 ####[facility] [address] [place] [address] Hematocrit (Bld) [Volume fraction] 21.8 % Low 34.0-46.0 [facility] Comment on above: Performed By: #### 2 581032, 7295530, 0174135, 03994889, 6498798, 7602021 ####[facility] [address] [place] [address] Hemoglobin (Bld) [Mass/Vol] 7.2 g/dL Low 12.0-16.0 [facility] Comment on above: Performed By: #### 2 344777, 8650640, 8750583, 48826558, 7362636, 9149124 ####[facility] [address] [place] [address] MCH (RBC) [Entitic mass] 28.2 pg Normal 27.0-34.0 [facility] Comment on above: Performed By: #### 2 824467, 6427934, 4724935, 51552945, 1939571, 3999784 ####[address] [address] MCHC (RBC) [Mass/Vol] 32.9 g/dL Normal 31.4-36.0 [facility] Comment on above: Performed By: #### 2 832967, 2401730, 2485371, 34860029, 9287375, 8880726 ####[address] [address] MCV (RBC) [Entitic vol] 85.7 fL Normal 80.0-100.0 [facility] Comment on above: Performed By: #### 2 737661, 8888986, 5536098, 32033555, 0377213, 2413766 ####[facility] [address] [place] [address] Platelet mean volume (Bld) [Entitic vol] 7.8 fL Normal 6.4-10.8 [facility] Comment on above: Performed By: #### 2 251659, 1043841, 8753577, 69315550, 4991515, 6694529 ####[facility] [address] [place] [address] Platelets (Bld) [#/Vol] 337.0 E9/L Normal 150.0-500.0 [facility] Comment on above: Performed By: #### 2 899268, 1969179, 3233497, 47710423, 8133756, 2133074 ####[facility] [address] [place] [address] RBC (Bld) [#/Vol] 2.5 E12/L Low 4.3-5.9 [facility] Comment on above: Performed By: #### 2 640765, 2469681, 9094831, 02599434, 1855396, 7525050 ####[facility] [address] [place] [address] WBC corrected for nucl RBC Auto (Bld) [#/Vol] 7.4 E9/L Normal 4.0-11.0 [facility] Comment on above: Performed By: #### 2 292506, 5975965, 9333239, 08140454, 7560538, 8951935 ####[facility] [address] [place] [address] CHEMISTRYOrdered By: SYSTEM SYSTEM on 12-22-2022 Anion [...] rate/Area] 70 mL/min/1.73 m2 Normal >=59mL/min/1.[address] [facility] Chem S Comment on above: Interpretive Data: C hronic kidney disease could be indicated at eGFR's of less than 60 mL/min/1.73m2. Kidney failure is indicated at less than 15 mL/min/1.73m2. Potassium [Moles/Vol] 3.7 mmol/L Normal 3.5 - 5.3 mmol /L [facility] Remisol Sodium [Moles/Vol] 139 mmol/L Normal 135 - 145 mmol/L [facility] Remisol Urea nitrogen [Mass/Vol] 21 mg/dL Normal 5 - 21 mg/dL [facility] Remisol Capillary Glucose POCon 11-30 Glucose [Mass/Vol] 123 mg/dL High 55-99 [facility] Comment on above: Result Comment: Lucille ronak Meter Performed By: #### 2 51571339 ####[facility] [address] [place] [address] Glucose [Mass/Vol] 124 mg/dL High 55-99 [facility] Comment on above: Result Comment: Fausto CHAUDHARY Performed By: #### 2 75418884 ####[facility] [address] [place] [address] Glucose [Mass/Vol] 126 mg/dL High 55-99 [facility] Comment on above: Result Comment: Fausto CHAUDHARY Performed By: #### 2 31762320 ####[facility] [address] [place] [address] Glucose [Mass/Vol] 153 mg/dL High 55-99 [facility] Comment on above: Performed By: #### 2 06017901 ####[facility] [address] [place] [address] Glucose [Mass/Vol] 294 mg/dL High 55-99 [facility] Comment on above: Result Comment: Fausto CHAUDHARY Performed By: #### 2 36847765 ####[facility] [address] [place] [address] Creatinineon 12-22-2022 Creatinine [Mass/Vol] 0.9 mg/dL Normal 0.5-1.[address] [facility] Comment on above: Performed By: #### 2 278049, 4049805, 9916983, 26059576, 1674307, 1715533 ####[facility] [address] [place] [address] HEMATOLOGYOrdered By: SYSTEM SYSTEM on 12-22-2022 Basophils/100 [...] 7.8 fL Normal 6.4 - 10.[address] [facility] HemeAutoSS Platelets (Bld) [#/Vol] 337.0 E9/L Normal 150.0 - 500.0 E9/L [facility] HemeAutoSS RBC (Bld) [#/Vol] 2.5 E12/L Low 4.3 - 5.9 E12/L [facility] HemeAutoSS WBC corrected for nucl RBC Auto (Bld) [#/Vol] 7.4 E9/L Normal 4.0 - 11.0 E9/L [facility] HemeAutoSS Lyteson 12-22-2022 Anion gap [Moles/Vol] 5 mmol/L Low 6-16 [facility] Comment on above: Performed By: #### 2 564424, 8540836, 9079350, 86551539, 5447993, 9974389 ####[facility] [address] [place] [address] Chloride [Moles/Vol] 115 mmol/L High 101-111 [facility] Comment on above: Performed By: #### 2 202903, 7345201, 0938696, 35842211, 1939043, 2697544 ####[facility] [address] [place] [address] CO2 [Moles/Vol] 23 mmol/L Normal 21-31 [facility] Comment on above: Performed By: #### 2 820484, 5480451, 5513120, 70549879, 5491555, 7739522 ####[facility] [address] [place] [address] Potassium [Moles/Vol] 3.7 mmol/L Normal 3.5-5.3 [facility] Comment on above: Performed By: #### 2 329593, 7624238, 3800981, 24006917, 2587529, 2241942 ####[facility] [address] [place] [address] Sodium [Moles/Vol] 139 mmol/L Normal 135-145 [facility] Comment on above: Performed By: #### 2 122794, 4369509, 9285155, 86446021, 4201308, 3532447 ####[facility] [address] [place] [address] Progress Note-Physicianon Progress Note-Physician Normal [facility] Comment on above: Result Comment: Elec tronically Signed By: Joaquim Rice DO\.br\Date and Time Signed: 12/22/22 20:14 EDT Progress Note-Physician Normal [facility] Comment on above: Result Comment: Elec tronically Signed By: Cordell Grossman DO\.br\Date and Time Signed: 12/22/22 15:53 EDT eGFRon 12-22-2022 GFR/1.73 sq M.predicted among non-blacks MDRD (S/P/Bld) [Vol rate/Area] 70 mL/min/1.73 m2 Normal >=59 [facility] Comment on above: Order Comment: Order added by Discern Expert. Result Comment: Computer Repair Instructor marquez kidney disease could be indicated at eGFR's of less than 60 mL/min/1.73m2. Kidney failure is indicated at less than 15 mL/min/1.73m2. Performed By: #### 2 699169, 6909256, 4210452, 04258584, 1524116, 8801871 ####[facility] [address] [place] [address] Auto Diffon 12-21-2022 Basophils/100 WBC (Bld) 0.1 % Normal 0.0-2.0 [facility] Comment on above: Order Comment: Order Added by Discern Expert. Performed By: #### 2 560317, 5062057, 68161565, 8550657, 2850595, 9801697 ####[address] [address] Basophils/Leukocytes Auto (Bld) [Pure # fraction] 0.0 E9/L Normal 0.0-0.2 [facility] [facility] Comment on above: Order Comment: Order Added by Discern Expert. Performed By: #### 2 839568, 0753597, 20849684, 9597660, 3018844, 8702726 ####[address] [place] [address] Eosinophils/100 WBC (Bld) 0.0 % Normal 0.0-8.0 [facility] Comment on above: Order Comment: Order Added by Discern Expert. Performed By: #### 2 283706, 0467024, 63405715, 0354067, 4437759, 0243035 ####[address] [address] Eosinophils/Leukocytes Auto (Bld) [Pure # fraction] 0.0 E9/L Normal 0.0-0.5 [facility] Comment on above: Order Comment: Order Added by Discern Expert. Performed By: #### 2 450991, 2488218, 81786971, 9732034, 6328333, 3198427 ####[address] [address] Lymphocytes/100 WBC (Bld) 6.5 % Low 14.0-50.0 [facility] Comment on above: Order Comment: Order Added by Discern Expert. Performed By: #### 2 502671, 5809854, 00104356, 5834189, 8381612, 3294936 ####[address] [place] [address] Lymphocytes/Leukocytes Auto (Bld) [Pure # fraction] 0.4 E9/L Low 1.0-4.0 [facility] Comment on above: Order Comment: Order Added by Discern Expert. Performed By: #### 2 565990, 6418522, 67958112, 7059266, 0447721, 5008611 ####[facility] [address] [place] [address] Monocytes/100 WBC (Bld) 8.7 % Normal 4.0-14.0 [facility] Comment on above: Order Comment: Order Added by Discern Expert. Performed By: #### 2 199458, 9794588, 25703707, 9416646, 8024851, 1819299 ####[address] [place] [address] Monocytes/Leukocytes Auto (Bld) [Pure # fraction] 0.6 E9/L Normal 0.2-1.0 [facility] Comment on above: Order Comment: Order Added by Discern Expert. Performed By: #### 2 984165, 9963943, 19654953, 2604075, 8715859, 6383593 ####[address] [address] Neutrophils/100 WBC (Bld) 84.7 % High 36.0-75.0 [facility] Comment on above: Order Comment: Order Added by Discern Expert. Performed By: #### 2 278213, 7942715, 88912332, 5216899, 7694799, 9930301 ####[address] [place] [address] Neutrophils/Leukocytes Auto (Bld) [Pure # fraction] 5.8 E9/L Normal 2.0-7.5 [facility] Comment on above: Order Comment: Order Added by Discern Expert. Performed By: #### 2 092139, 1532947, 26098957, 2258635, 5805158, 7744640 ####[address] [place] [address] BUNon 12-21-2022 Urea nitrogen [Mass/Vol] 22 mg/dL High 5-21 [facility] Comment on above: Performed By: #### 2 933817, 1506522, 80194944, 2793839, 8767438, 7144973 ####[address] [address] CBC w/ Auto Diffon 3 Erythrocyte distribution width (RBC) [Ratio] 17.9 % High 10.9-14.2 [facility] Comment on above: Performed By: #### 2 407646, 3100606, 64497572, 8576702, 0137322, 7082751 ####[facility] [address] [place] [address] Hematocrit (Bld) [Volume fraction] 23.9 % Low 34.0-46.0 [facility] Comment on above: Performed By: #### 2 391919, 1408160, 93824473, 1372911, 6702050, 3847645 ####[facility] [address] Hemoglobin (Bld) [Mass/Vol] 7.7 g/dL Low 12.0-16.0 [facility] Comment on above: Performed By: #### 2 201737, 8426192, 08572003, 5258456, 2505571, 3439486 ####[facility] [address] [place] [address] MCH (RBC) [Entitic mass] 28.2 pg Normal 27.0-34.0 [facility] Comment on above: Performed By: #### 2 682307, 3774367, 06639547, 7126009, 9758758, 3512662 ####[address] [address] MCHC (RBC) [Mass/Vol] 32.3 g/dL Normal 31.4-36.0 [facility] Comment on above: Performed By: #### 2 180899, 7272127, 31543095, 2171681, 2880729, 7631051 ####[address] [place] [address] MCV (RBC) [Entitic vol] 87.1 fL Normal 80.0-100.0 [facility] Comment on above: Performed By: #### 2 142511, 0860959, 92400247, 3826497, 7495238, 0380848 ####[facility] [address] [place] [address] Platelet mean volume (Bld) [Entitic vol] 8.1 fL Normal 6.4-10.8 [facility] Comment on above: Performed By: #### 2 423116, 1830613, 88543002, 4014301, 4065888, 2431602 ####[facility] [address] [place] [address] Platelets (Bld) [#/Vol] 320.0 E9/L Normal 150.0-500.0 [facility] Comment on above: Performed By: #### 2 736168, 0201146, 00906845, 0721153, 5420622, 5744044 ####[address] [place] [address] RBC (Bld) [#/Vol] 2.7 E12/L Low 4.3-5.9 [facility] Comment on above: Performed By: #### 2 232478, 4793489, 49718113, 3150055, 2902541, 4891789 ####[facility] [address] [place] [address] WBC corrected for nucl RBC Auto (Bld) [#/Vol] 6.8 E9/L Normal 4.0-11.0 [facility] Comment on above: Performed By: #### 2 779394, 7173667, 60326371, 3669620, 5757294, 1888435 ####[facility] [address] [place] [address] CHEMISTRYOrdered By: SYSTEM SYSTEM on 12-21-2022 Anion [...] rate/Area] 55 mL/min/1.73 m2 Low >=59mL/min/1.[address] [facility] Chem S Comment on above: Interpretive Data: C hronic kidney disease could be indicated at eGFR's of less than 60 mL/min/1.73m2. Kidney failure is indicated at less than 15 mL/min/1.73m2. Potassium [Moles/Vol] 5.2 mmol/L Normal 3.5 - 5.3 mmol /L [facility] Remisol Sodium [Moles/Vol] 138 mmol/L Normal 135 - 145 mmol/L [facility] Remisol Urea nitrogen [Mass/Vol] 22 mg/dL High 5 - 21 mg/dL [facility] Remisol Capillary Glucose POCon 11-30 Glucose [Mass/Vol] 288 mg/dL High 55-99 [facility] Comment on above: Performed By: #### 2 [id number] ####[facility] [address] [place] [address] Glucose [Mass/Vol] 323 mg/dL High 55-99 [facility] Comment on above: Result Comment: Fausto rubi RN/ Performed By: #### 2 28614330 ####[facility] [address] [place] [address] Glucose [Mass/Vol] 353 mg/dL High 55-99 [facility] Comment on above: Performed By: #### 2 00844123 ####[facility] [address] [place] [address] Glucose [Mass/Vol] 281 mg/dL High 55-99 [facility] Comment on above: Result Comment: Fausto CHAUDHARY Performed By: #### 2 92405098 ####[facility] [address] [place] [address] Creatinineon 12-21-2022 Creatinine [Mass/Vol] 1.1 mg/dL Normal 0.5-1.3 [facility] Comment on above: Performed By: #### 2 644734, 8366614, 58991586, 9433745, 3116510, 2162060 ####[facility] [address] [place] [address] HEMATOLOGYOrdered By: SYSTEM SYSTEM on 12-21-2022 Basophils/100 [...] g/dL Normal 31.4 - 36.0 gm /dL [facility] HemeAutoSS MCV (RBC) [Entitic vol] 87.1 fL Normal 80.0 - 100.[address] [facility] HemeAutoSS Platelet mean volume (Bld) [Entitic vol] 8.1 fL Normal 6.4 - 10.[address] [facility] HemeAutoSS Platelets (Bld) [#/Vol] 320.0 E9/L Normal 150.0 - 500.0 E9/L [facility] HemeAutoSS RBC (Bld) [#/Vol] 2.7 E12/L Low 4.3 - 5.9 E12/L [facility] HemeAutoSS WBC corrected for nucl RBC Auto (Bld) [#/Vol] 6.8 E9/L Normal 4.0 - 11.0 E9/L [facility] HemeAutoSS Interdisciplinary Note - Timo n 12-21-2022 Interdisciplinary Note - OT Normal [facility] Interdisciplinary Note - PTo n 12-21-2022 Interdisciplinary Note - PT Normal [facility] Lyteson 12-21-2022 Anion gap [Moles/Vol] 7 mmol/L Normal 6-16 [facility] Comment on above: Performed By: #### 2 183310, 9611787, 04773080, 7303871, 2039937, 6055079 ####[facility] [address] [place] [address] Chloride [Moles/Vol] 112 mmol/L High 101-111 [facility] Comment on above: Performed By: #### 2 677153, 3755675, 14180161, 9268430, 1320512, 4764247 ####[facility] [address] [place] [address] CO2 [Moles/Vol] 24 mmol/L Normal 21-31 [facility] Comment on above: Performed By: #### 2 201580, 0887094, 90276188, 7733375, 8547229, 6793834 ####[facility] [address] [place] [address] Potassium [Moles/Vol] 5.2 mmol/L Normal 3.5-5.3 [facility] Comment on above: Performed By: #### 2 071511, 8393905, 44525678, 2471223, 6962032, 6050388 ####[facility] [address] [place] [address] Sodium [Moles/Vol] 138 mmol/L Normal 135-145 [facility] Comment on above: Performed By: #### 2 990531, 5069497, 67074602, 8542388, 4456429, 1128979 ####[facility] [address] [place] [address] Operative Reporton Operative Report Normal [facility] Comment on above: Result Comment: Elec tronically Signed By: Joaquim Rice DO\.br\Date and Time Signed: 12/21/22 14:02 EDT Progress Note-Physicianon Progress Note-Physician Normal [facility] Comment on above: Result Comment: Elec tronically Signed By: MD Martinez Ahmad F\.br\Date and Time Signed: 12/21/22 16:59 EDT Progress Note-Physician Normal [facility] Comment on above: Result Comment: Elec tronically Signed By: MD Martinez Ahmad F\.br\Date and Time Signed: 12/21/22 16:52 EDT Progress Note-Physician Normal [facility] Comment on above: Result Comment: Elec tronically Signed By: Joaquim Rice DO\.br\Date and Time Signed: 12/21/22 14:41 EDT Progress Note-Physician Normal [facility] Comment on above: Result Comment: Elec tronically Signed By: Cordell Grossman DO.br\Date and Time Signed: 12/21/22 11:13 EDT eGFRon 12-21-2022 GFR/1.73 sq M.predicted among non-blacks MDRD (S/P/Bld) [Vol rate/Area] 55 mL/min/1.73 m2 Low >=59 [facility] Comment on above: Order Comment: Order added by Discern Expert. Result Comment: Computer Repair Instructor marquez kidney disease could be indicated at eGFR's of less than 60 mL/min/1.73m2. Kidney failure is indicated at less than 15 mL/min/1.73m2. Performed By: #### 2 442413, 5219934, 02536339, 6724919, 3502870, 0216335 ####[address] [address] .Manual Abson 12-20-2022 Basophils/Leukocytes Manual cnt (Bld) [Pure # fraction] 0.0 E9/L Normal 0.0-0.2 [facility] Comment on above: Performed By: #### 2 734384, 01655097, 56527132, 8086971, 35354334, 9862457, 0991482 ####[address] [address] Eosinophils/Leukocytes Manual cnt (Bld) [Pure # fraction] 0.1 E9/L Normal 0.0-0.5 [facility] Comment on above: Performed By: #### 2 256697, 04646548, 58711234, 1325417, 24393416, 4414919, 7135459 ####[address] [address] Lymphocytes/Leukocytes Manual cnt (Bld) [Pure # fraction] 1.0 E9/L Normal 1.0-4.0 [facility] Comment on above: Performed By: #### 2 168233, 26305977, 76378217, 0108975, 39561845, 3654445, 5151215 ####[address] [address] Monocytes/Leukocytes Manual cnt (Bld) [Pure # fraction] 0.5 E9/L Normal 0.2-1.0 [facility] Comment on above: Performed By: #### 2 663006, 91155162, 68215696, 2550220, 64811025, 8417756, 9237177 ####[address] [address] Neutrophils/Leukocytes Auto (Bld) [Pure # fraction] 4.2 E9/L Normal 2.0-7.5 [facility] Comment on above: Performed By: #### 2 526554, 36730489, 89302843, 4952029, 82023762, 2091469, 7835811 ####[facility] [address] [place] [address] ABO/Rhon 12-20-2022 ABO/Rh Positive Invalid Interpretation Code [facility] Comment on above: Performed By: #### 1 1401481, 98048423, 88114957, 8327891 ####[facility] [address] [place] [address] ABO/Rh History Checkon 12-20 ABO/Rh History Check Verified Hx Blood Type Normal [facility] Comment on above: Performed By: #### 1 6847922, 89485683, 35664731, 6905610 ####[facility] [address] [place] [address] ABSCon 12-20-2022 ABSC Gel Interp Negative Normal [facility] Comment on above: Performed By: #### 1 0256849, 65355588, 06612130, 6469799 ####[facility] [address] [place] [address] Auto Diffon 12-20-2022 Basophils/100 WBC (Bld) 0.1 % Normal 0.0-2.0 [facility] Comment on above: Order Comment: Order Added by Discern Expert. Performed By: #### 2 020305, 02814731, 8040997, 4950790, 4936229 ####[facility] [address] [place] [address] Basophils/Leukocytes Auto (Bld) [Pure # fraction] 0.0 E9/L Normal 0.0-0.2 [facility] Comment on above: Order Comment: Order Added by Discern Expert. Performed By: #### 2 277054, 23707078, 5414791, 7193782, 6493523 ####[facility] [address] [place] [address] Eosinophils/100 WBC (Bld) 0.2 % Normal 0.0-8.0 [facility] Comment on above: Order Comment: Order Added by Discern Expert. Performed By: #### 2 402512, 09291242, 7875431, 1292524, 1496242 ####[address] [place] [address] Eosinophils/Leukocytes Auto (Bld) [Pure # fraction] 0.0 E9/L Normal 0.0-0.5 [facility] Comment on above: Order Comment: Order Added by Discern Expert. Performed By: #### 2 298416, 13372866, 8025854, 7550010, 3892532 ####[address] [address] Lymphocytes/100 WBC (Bld) 3.8 % Low 14.0-50.0 [facility] Comment on above: Order Comment: Order Added by Discern Expert. Performed By: #### 2 675476, 27656727, 7373285, 8809151, 0425191 ####[address] [address] Lymphocytes/Leukocytes Auto (Bld) [Pure # fraction] 0.4 E9/L Low 1.0-4.0 [facility] Comment on above: Order Comment: Order Added by Discern Expert. Performed By: #### 2 898896, 69972996, 9562344, 0664714, 2633226 ####[address] [address] Monocytes/100 WBC (Bld) 6.3 % Normal 4.0-14.0 [facility] Comment on above: Order Comment: Order Added by Discern Expert. Performed By: #### 2 217223, 56831553, 2675095, 5020904, 2449028 ####[address] [address] Monocytes/Leukocytes Auto (Bld) [Pure # fraction] 0.6 E9/L Normal 0.2-1.0 [facility] Comment on above: Order Comment: Order Added by Discern Expert. Performed By: #### 2 782708, 32199845, 2924253, 1153456, 7934210 ####[facility] [address] [place] [address] Neutrophils/100 WBC (Bld) 89.6 % High 36.0-75.0 [facility] Comment on above: Order Comment: Order Added by Discern Expert. Performed By: #### 2 920343, 12463535, 6842386, 2108866, 3747265 ####[facility] [address] [place] [address] Neutrophils/Leukocytes Auto (Bld) [Pure # fraction] 8.7 E9/L High 2.0-7.5 [facility] Comment on above: Order Comment: Order Added by Discern Expert. Performed By: #### 2 508351, 00379298, 5900812, 6230457, 6566254 ####[address] [place] [address] BLOOD BANKOrdered By: Kirstin King on 12-20-2022 ABO/Rh Interp Positive Invalid Interpretation Code [facility] BB Subsection ABSC Gel Interp Negative (12/20/22 12:15 PM) Normal [facility] BB Subsection BMPon 12-20-2022 Anion gap [Moles/Vol] 10 mmol/L Normal 6-16 [facility] Comment on above: Performed By: #### 2 906500, 80563925, 1934202, 9509846, 9892508 ####[address] [place] [address] Calcium [Mass/Vol] 8.4 mg/dL Low 8.9-11.1 [facility] Comment on above: Performed By: #### 2 582517, 42343355, 6254883, 1182848, 9043150 ####[facility] [address] [place] [address] Chloride [Moles/Vol] 109 mmol/L Normal 101-111 [facility] Comment on above: Performed By: #### 2 762172, 51692733, 5957012, 7494543, 3265194 ####[facility] [address] [place] [address] CO2 [Moles/Vol] 23 mmol/L Normal 21-31 [facility] Comment on above: Performed By: #### 2 197770, 11570640, 6151857, 2337901, 8059069 ####[facility] [address] [place] [address] Creatinine [Mass/Vol] 0.7 mg/dL Normal 0.5-1.3 [facility] Comment on above: Performed By: #### 2 993856, 73429661, 9684946, 5479338, 2453186 ####[facility] [address] [place] [address] Glucose [Mass/Vol] 242 mg/dL High 55-199 [facility] Comment on above: Result Comment: If t his glucose result represents a fasting glucose, interpretation should refer to the following reference range: 55-99 mg/dL Performed By: #### 2 723507, 08302120, 6968089, 3155028, 1134926 ####[facility] [address] [facility] [place] [address] Potassium [Moles/Vol] 4.7 mmol/L Normal 3.5-5.3 [facility] Comment on above: Performed By: #### 2 196078, 67137574, 1480112, 9135951, 0380044 ####[facility] [address] [place] [address] Sodium [Moles/Vol] 137 mmol/L Normal 135-145 [facility] Comment on above: Performed By: #### 2 613847, 47381447, 0431876, 6532365, 2093940 ####[facility] [address] [place] [address] Urea nitrogen [Mass/Vol] 12 mg/dL Normal 5-21 [facility] Comment on above: Performed By: #### 2 790745, 11606133, 1096022, 9836389, 4206086 ####[facility] [address] [facility] [place] [place] [address] Urea nitrogen/Creatinine [Mass ratio] 17 No Units Normal 10-20 [facility] Comment on above: Performed By: #### 2 893020, 40060126, 0622928, 5124006, 0373076 ####[facility] [address] [place] [place] [address] Anion gap [Moles/Vol] 7 mmol/L Normal 6-16 [facility] Comment on above: Performed By: #### 2 718563, 19639560, 67433672, 1920151, 77293575, 5086897, 2204758 ####[facility] [address] [place] [address] Calcium [Mass/Vol] 8.4 mg/dL Low 8.9-11.1 [facility] Comment on above: Performed By: #### 2 721349, 45785375, 12385400, 4077768, 07517923, 3874976, 7948137 ####[facility] [address] [facility] [place] [address] Chloride [Moles/Vol] 112 mmol/L High 101-111 [facility] Comment on above: Performed By: #### 2 222410, 49376081, 24321443, 7423877, 74265627, 8544623, 5399649 ####[facility] [address] [facility] [place] [address] CO2 [Moles/Vol] 24 mmol/L Normal 21-31 [facility] Comment on above: Performed By: #### 2 017163, 79729920, 68598671, 9565411, 62220699, 0525967, 4989563 ####[facility] [address] [place] [place] [address] Creatinine [Mass/Vol] 0.7 mg/dL Normal 0.5-1.3 [facility] Comment on above: Performed By: #### 2 082610, 18305657, 54732598, 5970402, 65162808, 9395509, 5758232 ####[facility] [address] [place] [address] Glucose [Mass/Vol] 166 mg/dL Normal 55-199 [facility] Comment on above: Result Comment: If t his glucose result represents a fasting glucose, interpretation should refer to the following reference range: 55-99 mg/dL Performed By: #### 2 117691, 06832831, 14280413, 1598052, 61500605, 0404295, 5741269 ####[facility] [address] [place] [address] Potassium [Moles/Vol] 3.9 mmol/L Normal 3.5-5.3 [facility] Comment on above: Performed By: #### 2 304356, 72276580, 46071694, 4991500, 59727258, 1187303, 7326096 ####[facility] [address] [place] [address] Sodium [Moles/Vol] 139 mmol/L Normal 135-145 [facility] Comment on above: Performed By: #### 2 040209, 57277194, 03821198, 7287963, 33124293, 4593614, 3380717 ####[facility] [address] [place] [address] Urea nitrogen [Mass/Vol] 14 mg/dL Normal 5-21 [facility] Comment on above: Performed By: #### 2 536856, 62602387, 21822264, 0497755, 39255845, 3269444, 3585641 ####[facility] [address] [place] [address] Urea nitrogen/Creatinine [Mass ratio] 20 No Units Normal 10-20 [facility] Comment on above: Performed By: #### 2 631317, 65565385, 03387120, 9663541, 42431769, 8232530, 5913088 ####[facility] [address] [place] [address] Blood Bank ID#on 12-20-2022 BBID# [id number] Invalid Interpretation Code [facility] Comment on above: Performed By: #### 1 3586908, 21280691, 98411644, 9855161 ####[facility] [address] [place] [address] CBC w/ Auto Diffon Erythrocyte distribution width (RBC) [Ratio] 17.7 % High 10.9-14.2 [facility] Comment on above: Performed By: #### 2 584725, 66975971, 0159644, 8816937, 7281867 ####[address] [place] [address] Hematocrit (Bld) [Volume fraction] 26.3 % Low 34.0-46.0 [facility] Comment on above: Performed By: #### 2 042257, 30489458, 3317695, 8189881, 9988516 ####[address] [address] Hemoglobin (Bld) [Mass/Vol] 8.5 g/dL Low 12.0-16.0 [facility] Comment on above: Performed By: #### 2 131074, 88999931, 5418809, 7025428, 3613633 ####[address] [address] MCH (RBC) [Entitic mass] 28.1 pg Normal 27.0-34.0 [facility] Comment on above: Performed By: #### 2 797804, 09888064, 7604739, 8609683, 7431285 ####[facility] [address] [place] [address] MCHC (RBC) [Mass/Vol] 32.5 g/dL Normal 31.4-36.0 [facility] Comment on above: Performed By: #### 2 691043, 59322740, 8954763, 6177285, 7045026 ####[address] [address] MCV (RBC) [Entitic vol] 86.4 fL Normal 80.0-100.0 [facility] Comment on above: Performed By: #### 2 581593, 30064897, 3058699, 6392043, 9970925 ####[address] [place] [address] Platelet mean volume (Bld) [Entitic vol] 7.4 fL Normal 6.4-10.8 [facility] Comment on above: Performed By: #### 2 448596, 05782993, 4471422, 8749059, 5550420 ####[address] [address] Platelets (Bld) [#/Vol] 362.0 E9/L Normal 150.0-500.0 [facility] Comment on above: Performed By: #### 2 617320, 34196270, 7950596, 8930397, 3753383 ####[place] [address] RBC (Bld) [#/Vol] 3.0 E12/L Low 4.3-5.9 [facility] Comment on above: Performed By: #### 2 501249, 96773827, 3331989, 1470664, 8115891 ####[address] [address] WBC corrected for nucl RBC Auto (Bld) [#/Vol] 9.8 E9/L Normal 4.0-11.0 [facility] Comment on above: Performed By: #### 2 619465, 68858870, 4620166, 0456535, 1477367 ####[address] [address] Erythrocyte distribution width (RBC) [Ratio] 14.9 % High 10.9-14.2 [facility] Comment on above: Performed By: #### 2 361544, 10062565, 81074457, 8091999, 75206753, 5058843, 3201895 ####[address] [place] [address] Hematocrit (Bld) [Volume fraction] 22.1 % Low 34.0-46.0 [facility] Comment on above: Performed By: #### 2 608680, 90738331, 73537941, 6561788, 87983566, 7732868, 4306638 ####[facility] [address] [place], [place] [address] Hemoglobin (Bld) [Mass/Vol] 7.5 g/dL Low 12.0-16.0 [facility] Comment on above: Performed By: #### 2 503625, 06803984, 81475996, 7687685, 64524450, 1388710, 5858709 ####[facility] [address] [place], [place] [address] MCH (RBC) [Entitic mass] 29.7 pg Normal 27.0-34.0 [facility] Comment on above: Performed By: #### 2 867783, 19250899, 51489462, 8210493, 32304632, 8524930, 8481760 ####[facility] [address] [place], [place] [address] MCHC (RBC) [Mass/Vol] 33.9 g/dL Normal 31.4-36.0 [facility] Comment on above: Performed By: #### 2 553108, 44737991, 75851043, 0886601, 78324678, 1334171, 6329948 ####[address] [address] MCV (RBC) [Entitic vol] 87.6 fL Normal 80.0-100.0 [facility] Comment on above: Performed By: #### 2 412164, 07942577, 36855486, 0997812, 19034846, 2394262, 1199566 ####[facility] [address] [place] [address] Platelet mean volume (Bld) [Entitic vol] 8.1 fL Normal 6.4-10.8 [facility] Comment on above: Performed By: #### 2 415974, 23510987, 10796500, 1792520, 85797612, 0124511, 1851647 ####[facility] [address] [place] [address] Platelets (Bld) [#/Vol] 346.0 E9/L Normal 150.0-500.0 [facility] Comment on above: Performed By: #### 2 771016, 41078876, 20501976, 8084435, 72041200, 9191641, 4576687 ####[facility] [address] [place] [address] RBC (Bld) [#/Vol] 2.5 E12/L Low 4.3-5.9 [facility] Comment on above: Performed By: #### 2 444979, 05874118, 33697366, 2928620, 46659138, 9685296, 9399403 ####[facility] [address] [place] [address] WBC corrected for nucl RBC Auto (Bld) [#/Vol] 5.9 E9/L Normal 4.0-11.0 [facility] Comment on above: Performed By: #### 2 988114, 58408214, 17753248, 0290536, 21175849, 3850746, 0517987 ####[facility] [address] [place] [address] CHEMISTRYOrdered By: SYSTEM SYSTEM on 12-20-2022 Calcium [...] 8.4 mg/dL Low 8.9 - 11.1 mg/dL [facility] Remisol CRP [Mass/Vol] 14.3 mg/dL High <=1.9mg/dL [facility] Remis ol Glucose [Mass/Vol] 166 mg/dL Normal 55 - 199 mg/dL [facility] Remisol Comment on above: Interpretive Data: I f this glucose result represents a fasting glucose, interpretation should refer to the following reference range: 55-99 mg/dL Urea nitrogen/Creatinine [Mass ratio] 20 mg/mg Normal 10 - [address] [facility] Remisol CKon 12-20-2022 CK [Catalytic activity/Vol] 57 Int._Unit/L Normal 14-261 [facility] Comment on above: Performed By: #### 2 667862, 19208166, 0770736, 5878423, 7534290 ####[facility] [address] [place] [address] CRPon 12-20-2022 CRP [Mass/Vol] 14.3 mg/dL High <=1.9 [facility] Comment on above: Performed By: #### 2 051584, 51601207, 71891620, 8715213, 38208145, 2692689, 8458162 ####[facility] [address] [place] [address] Capillary Glucose POCon 11-30 Glucose [Mass/Vol] 134 mg/dL High 55-99 [facility] Comment on above: Result Comment: Fausto CHAUDHARY Performed By: #### 2 [id number] ####[facility] [address] [place] [address] Glucose [Mass/Vol] 166 mg/dL High 55-99 [facility] Comment on above: Result Comment: Fausto CHAUDHARY Performed By: #### 2 [id number] ####[facility] [address] [place] [address] Glucose [Mass/Vol] 237 mg/dL High 55-99 [facility] Comment on above: Performed By: #### 2 [id number] ####[facility] [address] [place] [address] Glucose [Mass/Vol] 307 mg/dL High 55-99 [facility] Comment on above: Result Comment: Fausto rubi RN/ Performed By: #### 2 [id number] ####[facility] [address] [place] [address] Consent for Treatmenton 11-30 Consent for Treatment [id number]#[id number]:1 27 Normal [facility] Consent for Treatment [id number]#[id number]:127 Normal [facility] Consultation Noteon 12-21-19 Consultation Note Normal [facility] Comment on above: Result Comment: Elec [...] 4.2 E9/L Normal 2.0 - 7.5 E9/L [facility] HemeManSS Sed Rate Automated 87 mm/h High 0 - 34 mm/hr [facility] HemeAutoSS Segmented neutrophils/100 WBC (Bld) 72 % Normal 36 - 75 % [facility] HemeManSS Variant lymphocytes LM Ql (Bld) 0 % Normal <=0% [facility] HemeManSS Insurance Correspondence Off iceon 12-20-2022 Insurance Correspondence Office [id number]#[id number]:127 Normal [facility] Interdisciplinary Note - Hardeep e Manageron 12-20-2022 Interdisciplinary Note - Thoracic Surgeon Normal [facility] Comment on above: Result Comment: Elec tronically Signed By: Radha Prabhakar\.br\Date and Time Signed: 12/20/22 13:36 EDT Main OR Intraoperative Recor don 12-20-2022 Main OR Intraoperative Record Normal [facility] Main OR PACU I Recordon 11-30 Main OR PACU I Record Normal [facility] Main OR Preoperative Recordo n 12-20-2022 Main OR Preoperative Record Normal [facility] Manual Diffon 12-20-2022 Band form neutrophils/100 WBC (Bld) 0 % Normal 0-10 [facility] Comment on above: Order Comment: Order Added by Discern Expert. Performed By: #### 2 837196, 88335291, 59179371, 9583938, 27566730, 8834903, 2396501 ####[facility] [address] [place] [address] Basophils/100 WBC (Bld) 0 % Normal 0-2 [facility] Comment on above: Order Comment: Order Added by Discern Expert. Performed By: #### 2 939184, 14997155, 37314189, 6868118, 90935901, 8472843, 6429747 ####[facility] [address] [place] [address] Eosinophils/100 WBC (Bld) 2 % Normal 0-8 [facility] Comment on above: Order Comment: Order Added by Discern Expert. Performed By: #### 2 551444, 64431380, 40974600, 9896917, 45226316, 8748398, 8341776 ####[facility] [address] [place] [address] Lymphocytes/100 WBC (Bld) 17 % Normal 14-50 [facility] Comment on above: Order Comment: Order Added by Discern Expert. Performed By: #### 2 769293, 34767814, 96454130, 6537763, 74218686, 3348636, 6339387 ####[facility] [address] [place] [address] Monocytes/100 WBC (Bld) 9 % Normal 4-14 [facility] Comment on above: Order Comment: Order Added by Katherine Expert. Performed By: #### 2 334796, 69585650, 58092147, 4359247, 33517093, 7885062, 1520310 ####[facility] [address] [place] [address] Segmented neutrophils/100 WBC (Bld) 72 % Normal 36-75 [facility] Comment on above: Order Comment: Order Added by Discern Expert. Performed By: #### 2 448855, 18630166, 38457211, 4154407, 49928836, 3711055, 4200886 ####[facility] [address] [place] [address] Variant lymphocytes LM Ql (Bld) 0 % Normal <=0 [facility] Comment on above: Order Comment: Order Added by Discern Expert. Performed By: #### 2 997793, 07924988, 63789040, 7938393, 82810385, 0808790, 6870102 ####[facility] [address] [place] [address] Message from Medicareon 11-30 Message from Medicare [id number]#[id number]:127 Normal [facility] Message from Medicare [id number]#1.00CD:127 Normal [facility] Comment on above: Other Comment: forgo t to scan the back of it Monitor Recordon 12-20-2022 Monitor Record [id number]#[id number]:12 7 Normal [facility] Monitor Record [id number]#1.00CD:12 7 Normal [facility] No Panel InformationOrdered By: Pita Butterfield on 12-20-2022 GS 2+ White Blood Cells 1+ Gram Positive Rods Occassional crystals seen on the slide [facility] Wound Culture 1+ Gram Positive Rods resembling diphtheroids [facility] GS 1+ White Blood Cells 2+ Gram Positive Rods Occassional crystals seen on the slide [facility] Wound Culture 1+ Gram Positive Rods resembling diphtheroids [facility] RCOon 12-20-2022 # of Units 1 Invalid Interpretation Code [facility] Comment on above: Order Comment: Blood product ready and called to STACIE _ at _12/20/2022 14:43:34 EDT by amh_. Performed By: #### 1 [id number] ####[facility] [address] [place] [address] Date Required 20221220 Invalid Interpretation Code [facility] Comment on above: Order Comment: Blood product ready and called to STACIE _ at _12/20/2022 14:43:34 EDT by amh_. Performed By: #### 1 9077572 ####[facility] [address] [place] [address] Order to Transfuse Yes Normal [facility] Comment on above: Order Comment: Blood product ready and called to STACIE _ at _12/20/2022 14:43:34 EDT by amh_. Performed By: #### 1 [id number] ####[facility] [address] [place] [address] Product Type None Required Invalid Interpretation Code [facility] Comment on above: Order Comment: Blood product ready and called to STACIE _ at _9/ 14:43:34 EDT by amh_. Performed By: #### 1 [id number] ####[facility] [address] [place] [address] Sed Rate Automatedon 023 Sed Rate Automated 87 mm/hr High 0-34 [facility] Comment on above: Performed By: #### 2 028006, 45149501, 91406505, 5732174, 95173612, 6692206, 6647079 ####[facility] [address] [place] [address] XR Hip 1 View Right + Pelvis on 12-20-2022 XR Hip 1 View Right + Pelvis Normal [facility] eGFRon 12-20-2022 GFR/1.73 sq M.predicted among non-blacks MDRD (S/P/Bld) [Vol rate/Area] 94 mL/min/1.73 m2 Normal >=59 [facility] Comment on above: Order Comment: Order added by Discern Expert. Result Comment: Computer Repair Instructor marquez kidney disease could be indicated at eGFR's of less than 60 mL/min/1.73m2. Kidney failure is indicated at less than 15 mL/min/1.73m2. Performed By: #### 2 549243, 91220004, 6430083, 3583837, 2214944 ####[facility] [address] [place] [address] GFR/1.73 sq M.predicted among non-blacks MDRD (S/P/Bld) [Vol rate/Area] 94 mL/min/1.73 m2 Normal >=59 [facility] Comment on above: Order Comment: Order added by Discern Expert. Result Comment: Computer Repair Instructor marquez kidney disease could be indicated at eGFR's of less than 60 mL/min/1.73m2. Kidney failure is indicated at less than 15 mL/min/1.73m2. Performed By: #### 2 546976, 31046278, 24512697, 1312442, 04704949, 8448628, 8924140 ####[facility] [address] [place] [address] Capillary Glucose POCon 11-30 Glucose [Mass/Vol] 396 mg/dL High [address] [place] [address] Comment on above: Result Comment: Lucille ronak Meter Performed By: #### 2 [id number] ####[facility] [address] [place] [address] Glucose [Mass/Vol] 212 mg/dL High [address] [place] [address] Comment on above: Result Comment: Lucille ronak Meter Performed By: #### 2 [id number] ####[facility] [address] [place] [address] No Panel InformationOrdered By: [facility]CRO[facility] on 12-19-2022 Blood Culture Charcoal No growth at 4 days. Final to follow at 7 days. [facility] Capillary Glucose POCon 11-30 Glucose [Mass/Vol] 171 mg/dL High [address] [place] [address] Comment on above: Result Comment: Lucille ronak Meter Performed By: #### 2 [id number] ####[facility] [address] [place] [address] Glucose [Mass/Vol] 205 mg/dL High [address] [place] [address] Comment on above: Result Comment: Lucille ronak Meter Performed By: #### 2 [id number] ####[facility] [address] [place] [address] Glucose [Mass/Vol] 329 mg/dL [address] Comment on above: Performed By: #### 2 05929007 ####[facility] [address] [place] [address] Glucose [Mass/Vol] 169 mg/dL [address] Comment on above: Performed By: #### 2 [id number] ####[facility] [address] [place] [address] XR Hip 2-3 Views Right + Pel vison 12-18-2022 XR Hip 2-3 Views Right + Pelvis Normal [facility] Capillary Glucose POCon 11-29 Glucose [Mass/Vol] 209 mg/dL High [address] [place] [address] Comment on above: Result Comment: Lucille ronak Meter Performed By: #### 2 [id number] ####[facility] [address] [place] [address] Glucose [Mass/Vol] 187 mg/dL [address] Comment on above: Performed By: #### 2 [id number] ####[facility] [address] [place] [address] Glucose [Mass/Vol] 266 mg/dL [address] Comment on above: Performed By: #### 2 13072362 ####[facility] [address] [place] [address] Glucose [Mass/Vol] 164 mg/dL [address] Comment on above: Result Comment: Lucille ronak Meter Performed By: #### 2 [id number] ####[facility] S[address] [place] [address] Capillary Glucose POCon 11-29 Glucose [Mass/Vol] 212 mg/dL [address] Comment on above: Result Comment: Lucille ronak Meter Performed By: #### 2 [id number] ####[facility] [address] [facility] [place] [address] Glucose [Mass/Vol] 229 mg/dL [address] Comment on above: Performed By: #### 2 [id number] ####[facility] [address] [place] [address] Glucose [Mass/Vol] 152 mg/dL [address] Comment on above: Result Comment: Lucille ronak Meter Performed By: #### 2 [id number] ####[facility] [address] [place] [address] Capillary Glucose POCon 11-29 Glucose [Mass/Vol] 228 mg/dL [address] Comment on above: Result Comment: Lucille ronak Meter Performed By: #### 2 [id number] ####[facility] [address] [place] [address] Glucose [Mass/Vol] 208 mg/dL High [address] [place] [address] Comment on above: Result Comment: Repe at TestCleaned Meter Performed By: #### 2 [id number] ####[facility] [address] AveNsaint [place] [place] [address] Glucose [Mass/Vol] 183 mg/dL [address] Comment on above: Result Comment: Lucille ronak Meter Performed By: #### 2 [id number] ####[facility] [address]rx[address] [facility] [place] [address] Glucose [Mass/Vol] 281 mg/dL [address] Comment on above: Result Comment: Lucille ronak Meter Performed By: #### 2 [id number] ####[facility] [address] [place] [address] Capillary Glucose POCon 11-29 Glucose [Mass/Vol] 130 mg/dL [address] Comment on above: Result Comment: Lucille ronak Meter Performed By: #### 2 [id number] ####[facility] [address] [place] [address] Glucose [Mass/Vol] 144 mg/dL [address] Comment on above: Result Comment: Lucille ronak Meter Performed By: #### 2 [id number] ####[facility] [address] [place] [address] Glucose [Mass/Vol] 157 mg/dL [address] Comment on above: Result Comment: Lucille ronak Meter Performed By: #### 2 [id number] ####[facility] [address] [facility] [place] [address] Glucose [Mass/Vol] 143 mg/dL [address] Comment on above: Result Comment: Lucille ronak Meter Performed By: #### 2 [id number] ####[facility] [address] [place] [facility] [place] [address] Capillary Glucose POCon 11-29 Glucose [Mass/Vol] 145 mg/dL [address] Comment on above: Result Comment: Lucille ronak Meter Performed By: #### 2 [id number] ####[facility] [address] [place] [address] Glucose [Mass/Vol] 132 mg/dL [place] [address] [place] [address] Comment on above: Performed By: #### 2 [id number] ####[facility] [address]zes[address] [place] [address] Glucose [Mass/Vol] 223 mg/dL [place] [address] [place] [address] Comment on above: Performed By: #### 2 [id number] ####[facility] [address] [place] [address] Glucose [Mass/Vol] 248 mg/dL [address] Comment on above: Result Comment: Lucille ronak Meter Performed By: #### 2 [id number] ####[facility] [address]ns[address] [place] [address] Capillary Glucose POCon 11-29 Glucose [Mass/Vol] 292 mg/dL [address] Comment on above: Result Comment: Lucille ronak Meter Performed By: #### 2 [id number] ####[facility] Y[address]em[address] [place] [address] Glucose [Mass/Vol] 115 mg/dL [address] Comment on above: Result Comment: Lucille ronak Meter Performed By: #### 2 [id number] ####[facility] [address] [place] [address] Glucose [Mass/Vol] 207 mg/dL [place] [address] [place] [address] Comment on above: Result Comment: Lucille ronak Meter Performed By: #### 2 [id number] ####[facility] [address] [place] [address] Glucose [Mass/Vol] 159 mg/dL [address] Comment on above: Result Comment: Lucille ornak Meter Performed By: #### 2 [id number] ####[facility] [address] [place] [address] Capillary Glucose POCon 11-29 Glucose [Mass/Vol] 256 mg/dL [address] Comment on above: Result Comment: Lucille ronak Meter Performed By: #### 2 [id number] ####[facility] [address] [place] [address] Glucose [Mass/Vol] 129 mg/dL [address] Comment on above: Result Comment: Lucille ronak Meter Performed By: #### 2 [id number] ####[facility] [address] [place] [address] Glucose [Mass/Vol] 235 mg/dL [address] Comment on above: Performed By: #### 2 [id number] ####[facility] [address] [place] [address] Glucose [Mass/Vol] 183 mg/dL [address] Comment on above: Result Comment: Lucille ronak Meter Performed By: #### 2 [id number] ####[facility] [address]lf[address] [place] [address] Glucose [Mass/Vol] 178 mg/dL [address] Comment on above: Result Comment: Lucille ronak Meter Performed By: #### 2 [id number] ####[facility] [address] [place] [address] Capillary Glucose POCon 11-29 Glucose [Mass/Vol] 159 mg/dL [address] Comment on above: Result Comment: Lucille ronak Meter Performed By: #### 2 [id number] ####[facility] [address] [place] [address] Glucose [Mass/Vol] 149 mg/dL [address] Comment on above: Result Comment: Lucille ronak Meter Performed By: #### 2 [id number] ####[facility] [address] [place] [address] Glucose [Mass/Vol] 217 mg/dL [address] Comment on above: Result Comment: Lucille ronak Meter Performed By: #### 2 [id number] ####[facility] [address] [place] [address] Glucose [Mass/Vol] 206 mg/dL High 55-99 [facility] Comment on above: Result Comment: Lucille ronak Meter Performed By: #### 2 [id number] ####[facility] [address] [place] [address] Capillary Glucose POCon 11-29 Glucose [Mass/Vol] 83 mg/dL Normal 55-99 [facility] Comment on above: Result Comment: Lucille ronak Meter Performed By: #### 2 [id number] ####[facility] [address] [place] [address] Glucose [Mass/Vol] 215 mg/dL High 55-99 [facility] Comment on above: Performed By: #### 2 [id number] ####[facility] [address]bj[address]tr[address] [facility] [place] [address] Glucose [Mass/Vol] 317 mg/dL High 55-99 [facility] Comment on above: Performed By: #### 2 [id number] ####[facility] [address] [facility] [place] [address] Glucose [Mass/Vol] 166 mg/dL High 55-99 [facility] Comment on above: Result Comment: Lucille ronak Meter Performed By: #### 2 [id number] ####[facility] [address] [facility] [place] [address] Family Medicine Office/Clini c Noteon 12-09-2022 Family Medicine Office/Clinic Note Normal [facility] Comment on above: Result Comment: Elec tronically Signed By: Emely Mccall DO\.br\Date and Time Signed: 12/09/22 09:50 EDT\.br\Electronically Co-Signed By: Sriram Tesfaye\.br\Date and Time Co-Signed: 12/09/22 01:31 EDT Capillary Glucose POCon 11-29 Glucose [Mass/Vol] 282 mg/dL High 55- [facility] Comment on above: Performed By: #### 2 [id number] ####[facility] [address] [facility] [place] [address] Glucose [Mass/Vol] 175 mg/dL High 55- [facility] Comment on above: Performed By: #### 2 [id number] ####[facility] [address] [place] [address] Glucose [Mass/Vol] 316 mg/dL High 55- [facility] Comment on above: Performed By: #### 2 [id number] ####[facility] [address]460 [facility] [place] [address] Glucose [Mass/Vol] 262 mg/dL [facility] - [facility] Comment on above: Result Comment: Lucille ronak Meter Performed By: #### 2 [id number] ####[facility] [address] [place] [address] Capillary Glucose POCon 090 Glucose [Mass/Vol] 273 mg/dL [address] Comment on above: Result Comment: Lucille ronak Meter Performed By: #### 2 [id number] ####[facility] [address] [place] [address] Glucose [Mass/Vol] 150 mg/dL [place] [address]- [facility] Comment on above: Performed By: #### 2 [id number] ####[facility] [address] [place] [address] Glucose [Mass/Vol] 58 mg/dL Normal - [facility] Comment on above: Performed By: #### 2 [id number] ####[facility] [address]bwpd[address] [facility] [place] [address] Glucose [Mass/Vol] 256 mg/dL [facility] 55- [facility] Comment on above: Performed By: #### 2 [id number] ####[facility] [address] [place] [address] Glucose [Mass/Vol] 117 mg/dL High [address] [place] [address] Comment on above: Result Comment: Lucille ronak Meter Performed By: #### 2 [id number] ####[facility] [address] [place] [address] Capillary Glucose POCon 09-0 Glucose [Mass/Vol] 165 mg/dL [address] Comment on above: Result Comment: Lucille ronak Meter Performed By: #### 2 [id number] ####[facility] Xlmghw[address]gs[address] [place] [address] Glucose [Mass/Vol] 202 mg/dL [address] Comment on above: Result Comment: Lucille ronak Meter Performed By: #### 2 [id number] ####[facility] Upgoxwgjms[address] [place] [address] Glucose [Mass/Vol] 280 mg/dL [address] Comment on above: Result Comment: Lucille ronak Meter Performed By: #### 2 [id number] ####[facility] Rtkbkcperj[address] [place] [address] Glucose [Mass/Vol] 156 mg/dL [address] Comment on above: Result Comment: Lucille ronak Meter Performed By: #### 2 [id number] ####[facility] Zbvsxcsezz[address] [place] [address] Capillary Glucose POCon 09-0 Glucose [Mass/Vol] 152 mg/dL [address] Comment on above: Result Comment: Lucille ronak Meter Performed By: #### 2 [id number] ####[facility] Escoffypbs[address] [place] [address] Glucose [Mass/Vol] 192 mg/dL [address] Comment on above: Performed By: #### 2 [id number] ####[facility] Caknfcmukc[address] [place] [address] Glucose [Mass/Vol] 317 mg/dL [address] Comment on above: Result Comment: Lucille ronak Meter Performed By: #### 2 [id number] ####[facility] Cwpdfjaqlo410 [place] [address] Glucose [Mass/Vol] 185 mg/dL High [address] Comment on above: Performed By: #### 2 [id number] ####[facility] Odxzhjeltv100 [place] [address] C Urineon 12-04-2022 Bacteria identified Cx Nom (U) Normal [facility] Comment on above: Performed By: #### 2 428679, [id number] ####[facility] Tcjtspozyd813 [place] [address] Capillary Glucose POCon Glucose [Mass/Vol] 206 mg/dL High [address] [place] [address] Comment on above: Result Comment: Lucille ronak Meter Performed By: #### 2 [id number] ####[facility] Twyivwjata064 [place] [address] Glucose [Mass/Vol] 181 mg/dL High [address] [place] [address] Comment on above: Result Comment: Lucille ronak Meter Performed By: #### 2 [id number] ####[facility] Gspnzvgnek[address] [place] [address] Glucose [Mass/Vol] 289 mg/dL [address] Comment on above: Performed By: #### 2 [id number] ####[facility] Fynxbavmfd[address] [place] [address] Glucose [Mass/Vol] 211 mg/dL High 55-99 [facility] Comment on above: Result Comment: Lucille ronak Meter Performed By: #### 2 [id number] ####[facility] Cnntgrzxyi602 [place] [address] Capillary Glucose POCon Glucose [Mass/Vol] 159 mg/dL [address] Comment on above: Result Comment: Lucille ronak Meter Performed By: #### 2 06125838 ####[facility] Lnqpoxsnjz434 [place] [address] Glucose [Mass/Vol] 89 mg/dL Normal -99 [facility] Comment on above: Performed By: #### 2 [id number] ####[facility] [address] [facility] [place] [address] Glucose [Mass/Vol] 194 mg/dL High 55-99 [facility] Comment on above: Performed By: #### 2 16917385 ####[facility] Aytkslophb171 [facility] [place] [address] Glucose [Mass/Vol] 204 mg/dL High 55-99 [facility] Comment on above: Result Comment: Lucille ronak Meter Performed By: #### 2 [id number] ####[facility] Fmebrpbgpx265 [facility] [place] [address] Family Medicine Office/Clini c Noteon 12-03-2022 Family Medicine Office/Clinic Note Normal [facility] Comment on above: Result Comment: Elec tronically Signed By: ZAIRA BANKS, José\.br\Date and Time Signed: 12/03/22 22:17 EDT Capillary Glucose POCon Glucose [Mass/Vol] 178 mg/dL High 55-99 [facility] Comment on above: Performed By: #### 2 [id number] ####[facility] Pcslzzemsm560 [facility] [place] [address] Glucose [Mass/Vol] 173 mg/dL High 55-99 [facility] Comment on above: Performed By: #### 2 [id number] ####[facility] [address] [place] [address] Glucose [Mass/Vol] 230 mg/dL High 55-99 [facility] Comment on above: Performed By: #### 2 [id number] ####[facility] Sgomvhluvt074 [facility] [place] [address] Glucose [Mass/Vol] 347 mg/dL High 55-99 [facility] Comment on above: Result Comment: Insu melissa StartedCleaned Meter Performed By: #### 2 [id number] ####[facility] Okeslpuegu787 [facility] [place] [address] UA With Cult Reflexon 2022 Bacteria LM Ql (Urine sed) 3+ /HPF Abnormal Trace [facility] Comment on above: Performed By: #### 2 431997, [id number] ####[facility] [address]xe[address] [place] [address] Bilirubin Ql (U) Negative Normal Negative [facility] Comment on above: Performed By: #### 2 249158, 69181852 ####[facility] [address]qtskctlm365 [place] [address] Clarity (U) CLOUDY Abnormal Clear [facility] Comment on above: Performed By: #### 2 992598, 92715006 ####[facility] [address]834 [place] [address] Color (U) YELLOW Normal Yellow [facility] Comment on above: Performed By: #### 2 778041, [id number] ####[address] [address] Epithelial cells.squamous LM.HPF (Urine sed) [#/Area] 0-2 Normal 0-[address] [facility] Comment on above: Performed By: #### 2 986867, 57931686 ####[facility] [address] [place] [address] Glucose Test strip (U) [Mass/Vol] Negative Normal Negative [facility] Comment on above: Performed By: #### 2 686173, 65100394 ####[facility] [address]fkyzc[address] [place] [address] Hemoglobin Ql (U) 1+ Abnormal Negative [facility] Comment on above: Performed By: #### 2 544266, 79774447 ####[facility] Gh[address]jftbt629 [place] [address] Ketones (U) [Mass/Vol] Negative Normal Negative [facility] Comment on above: Performed By: #### 2 484012, 73427624 ####[facility] [address]ijqmi[address] [place] [address] [place].plasma/[place] .RBC (Bld) [Mass ratio] 0-3 Normal 0-3 [facility] Comment on above: Performed By: #### 2 932871, 85151205 ####[facility] [address] [place] [address] Mucus Ql (Urine sed) TRACE Normal [facility] Comment on above: Performed By: #### 2 656340, 46093597 ####[facility] [address]ishg[address] [place] [address] Nitrite Ql (U) Negative Normal Negative [facility] Comment on above: Performed By: #### 2 846469, 61599956 ####[facility] Os[address]bns378 [place] [address] pH (U) 5.5 [pH] Invalid Interpretation Code 5.0-9.0 [facility] Comment on above: Performed By: #### 2 276948, 66322463 ####[facility] [address] [place] [address] Protein (U) [Mass/Vol] 1+ Abnormal Negative [facility] Comment on above: Performed By: #### 2 633562, 11588881 ####[facility] T[address]jelh[address] [place] [address] Specific gravity (U) [Rel density] 1.025 Invalid Interpretation Code 1.005-1.030 [facility] Comment on above: Performed By: #### 2 395340, 17801331 ####[facility] [address]qs[address]ofb[address] [place] [address] Type of Urine collection method Clean Catch Normal [facility] Comment on above: Performed By: #### 2 569623, 57127784 ####[facility] Y[address]fpsrfkh777 [place] [address] Urobilinogen Qn (U) 2.0 {Papa'U}/dL Abnormal 0.0-1.0 [facility] Comment on above: Performed By: #### 2 600474, 47300881 ####[facility] Yc[address]zgdngi102 [place] [address] WBC Auto Ql (U) 3+ Abnormal Negative [facility] Comment on above: Performed By: #### 2 422248, 31328913 ####[facility] S[address]ixteh136 [place] [address] WBC LM.HPF (Urine sed) [#/Area] /[HPF] Abnormal 0-5 [facility] Comment on above: Performed By: #### 2 225088, 73267432 ####[facility] M[address]todtf400 [place] [address] Capillary Glucose POCon 09-0 Glucose [Mass/Vol] 265 mg/dL High 55- [facility] Comment on above: Performed By: #### 2 [id number] ####[facility] [address] [place] [address] Glucose [Mass/Vol] 196 mg/dL High - [facility] Comment on above: Performed By: #### 2 [id number] ####[address] [address] Glucose [Mass/Vol] 313 mg/dL High - [facility] Comment on above: Performed By: #### 2 [id number] ####[address] [address] Glucose [Mass/Vol] 243 mg/dL High - [facility] Comment on above: Result Comment: Lucille ronak Meter Performed By: #### 2 86421221 ####[facility] [address] [place] [address] Capillary Glucose POCon 09-0 Glucose [Mass/Vol] 181 mg/dL High 55- [facility] Comment on above: Result Comment: Lucille ronak Meter Performed By: #### 2 [id number] ####[facility] [address] [place] [address] Glucose [Mass/Vol] 244 mg/dL High 55- [facility] Comment on above: Result Comment: Lucille ronak Meter Performed By: #### 2 [id number] ####[facility] [address]yy[address] [place] [address] Glucose [Mass/Vol] 177 mg/dL High 55-99 [facility] Comment on above: Performed By: #### 2 [id number] ####[facility] [address]xbjx[address] [place] [address] Glucose [Mass/Vol] 272 mg/dL High 55-99 [facility] Comment on above: Result Comment: Lucille ronak Meter Performed By: #### 2 [id number] ####[facility] [address]awonurbx[address] [place] [address] CHEMISTRYOrdered By: Lab ROP User on 11-29-2022 Glucose [Mass/Vol] 209 mg/dL High 55 - 99 mg/dL FTM C POC Subsection Comment on above: Result Comment: Fausto CHAUDHARY POC Device SN [id number] Invalid Interpretation Code [facility] POC Subsection POC User ID [id number] Invalid Interpretation Code [facility] POC Subsection POC Username STEPHANIE JANE Invalid Interpretation Code FT POC Subsection Glucose [Mass/Vol] 147 mg/dL High 55 - 99 mg/dL F[facility] C POC Subsection Comment on above: Result Comment: Fausto CHAUDHARY POC Device SN [id number] Invalid Interpretation Code [facility] POC Subsection POC User ID [id number] Invalid Interpretation Code [facility] POC Subsection POC Username STEPHANIE JANE Invalid Interpretation Code [facility] POC Subsection Capillary Glucose POCon Glucose [Mass/Vol] 219 mg/dL High 55-99 [facility] Comment on above: Performed By: #### 2 [id number] ####[facility] [address] [place] [address] Glucose [Mass/Vol] 189 mg/dL High 55-99 [facility] Comment on above: Performed By: #### 2 88944981 ####[facility] [address] [place] [address] Glucose [Mass/Vol] 209 mg/dL High 55-99 [facility] Comment on above: Result Comment: Fausto CHAUDHARY Performed By: #### 2 61500577 ####[facility] [address] [place] [address] Glucose [Mass/Vol] 147 mg/dL High 55-99 [facility] Comment on above: Result Comment: Fausto rubi RN/MD Performed By: #### 2 03953472 ####[facility] [address] [place] [address] Discharge Instructionson Discharge Instructions [id number]#[id number]:127 [facility] Discharge Note-Nursingon Discharge Note-Nursing [facility] Insurance Correspondence Off iceon 11-29-2022 Insurance Correspondence Office [id number]#1.00CD:12 7 [facility] Interdisciplinary Note - Hardeep e Manageron 11-29-2022 Interdisciplinary Note - Thoracic Surgeon [facility] Comment on above: Result Comment: Elec tronically Signed By: Radha Prabhakar\.br\Date and Time Signed: 11/29/22 11:10 EDT Interdisciplinary Note - Thoracic Surgeon [facility] Comment on above: Result Comment: Elec tronically Signed By: Radha Prabhakar\.br\Date and Time Signed: 11/29/22 10:44 EDT Medication Listson 3 Medication Lists [id number]#1.00CD:127 [facility] Message from Medicareon Message from Medicare [id number]#1.00CD:127 [facility] Monitor Recordon 11-29-2022 Monitor Record [id number]#1.00CD:12 7 [facility] Monitor Record [id number]#1.00CD:12 7 [facility] Monitor Record [id number]#1.00CD:12 7 [facility] Progress Note-Physicianon Progress Note-Physician Normal [facility] Comment on above: Result Comment: Elec tronically Signed By: FALLON BANKS, Soni\.br\Date and Time Signed: 11/29/22 09:02 EDT Transfer Documentson 023 Transfer Documents [id number]#1.00CD:127 Normal [facility] Auto Diffon 11-28-2022 Basophils/100 WBC (Bld) 0.2 % Normal 0.0-2.0 [facility] Comment on above: Order Comment: Order Added by Discern Expert. Performed By: #### 2 073614, 4039133, 8681081, 7741456, 61016148, 2817498 ####[facility] [address] [place] [address] Basophils/Leukocytes Auto (Bld) [Pure # fraction] 0.0 E9/L Normal 0.0-0.2 [facility] Comment on above: Order Comment: Order Added by Discern Expert. Performed By: #### 2 705572, 3957043, 9753130, 3235106, 52836756, 6885837 ####[facility] [address] [place] [address] Eosinophils/100 WBC (Bld) 5.7 % Normal 0.0-8.0 [facility] Comment on above: Order Comment: Order Added by Discern Expert. Performed By: #### 2 148903, 7514117, 1821161, 8653168, 09764057, 7691362 ####[facility] [address]ro[address] [place] [address] Eosinophils/Leukocytes Auto (Bld) [Pure # fraction] 0.5 E9/L Normal 0.0-0.5 [facility] Comment on above: Order Comment: Order Added by Discern Expert. Performed By: #### 2 331254, 3315465, 3566459, 8533219, 93368450, 6292962 ####[facility] [address] [place] [address] Lymphocytes/100 WBC (Bld) 17.0 % Normal 14.0-50.0 [facility] Comment on above: Order Comment: Order Added by Discern Expert. Performed By: #### 2 552321, 9689805, 9025660, 3542831, 68481215, 9814992 ####[place] [address] [place] [address] Lymphocytes/Leukocytes Auto (Bld) [Pure # fraction] 1.5 E9/L Normal 1.0-4.0 [facility] Comment on above: Order Comment: Order Added by Discern Expert. Performed By: #### 2 921150, 4594056, 8691613, 3642395, 16062238, 8205311 ####[address] [address] Monocytes/100 WBC (Bld) 11.7 % Normal 4.0-14.0 [facility] Comment on above: Order Comment: Order Added by Katherine Expert. Performed By: #### 2 791577, 1804098, 6008678, 4588889, 50749328, 7548735 ####[address] [address] Monocytes/Leukocytes Auto (Bld) [Pure # fraction] 1.1 E9/L High 0.2-1.0 [facility] Comment on above: Order Comment: Order Added by Katherine Expert. Performed By: #### 2 125250, 2466920, 0174918, 1546565, 66798830, 5325232 ####[address] [place] [address] Neutrophils/100 WBC (Bld) 65.4 % Normal 36.0-75.0 [facility] Comment on above: Order Comment: Order Added by Discern Expert. Performed By: #### 2 044752, 4076348, 6195569, 1312032, 87648127, 8550040 ####[address] [address] Neutrophils/Leukocytes Auto (Bld) [Pure # fraction] 5.9 E9/L Normal 2.0-7.5 [facility] Comment on above: Order Comment: Order Added by Discern Expert. Performed By: #### 2 396883, 9825526, 4728824, 8653867, 20684978, 8448555 ####[facility] [address] [place] [address] BUNon 11-28-2022 Urea nitrogen [Mass/Vol] 13 mg/dL Normal 5-21 [facility] Comment on above: Performed By: #### 2 947799, 1026483, 8176186, 4214036, 12239477, 6616596 ####[facility] [address] [place] [address] CBC w/ Auto Diffon Erythrocyte distribution width (RBC) [Ratio] 13.2 % Normal 10.9-14.2 [facility] Comment on above: Performed By: #### 2 281031, 5956270, 7286938, 3671871, 70861590, 8846115 ####[facility] [address] [place] [address] Hematocrit (Bld) [Volume fraction] 24.5 % Low 34.0-46.0 [facility] Comment on above: Performed By: #### 2 717420, 4136227, 4747835, 8824663, 99171334, 4576803 ####[address] [place] [address] Hemoglobin (Bld) [Mass/Vol] 8.6 g/dL Low 12.0-16.0 [facility] Comment on above: Performed By: #### 2 061504, 1066394, 5791015, 6746705, 85092155, 9978895 ####[facility] [address] [place] [address] MCH (RBC) [Entitic mass] 31.1 pg Normal 27.0-34.0 [facility] Comment on above: Performed By: #### 2 450416, 8624981, 6749530, 3514412, 66428893, 4107556 ####[facility] [address] [place], [place] [address] MCHC (RBC) [Mass/Vol] 35.0 g/dL Normal 31.4-36.0 [facility] Comment on above: Performed By: #### 2 529122, 2715599, 5408986, 1131801, 71547902, 7834240 ####[place] [address] MCV (RBC) [Entitic vol] 89.1 fL Normal 80.0-100.0 [facility] Comment on above: Performed By: #### 2 829456, 6836291, 4497950, 0886386, 24665544, 8079001 ####[place] [address] Platelet mean volume (Bld) [Entitic vol] 9.0 fL Normal 6.4-10.8 [facility] Comment on above: Performed By: #### 2 385673, 3724358, 0791907, 5374400, 50530401, 4807072 ####[place] [address] Platelets (Bld) [#/Vol] 158.0 E9/L Normal 150.0-500.0 [facility] Comment on above: Performed By: #### 2 654481, 4357659, 5359223, 5638048, 63968375, 0189473 ####[place] [address] RBC (Bld) [#/Vol] 2.8 E12/L Low 4.3-5.9 [facility] Comment on above: Performed By: #### 2 278728, 7666373, 4504775, 8677095, 75785870, 6053220 ####[address] [address] WBC corrected for nucl RBC Auto (Bld) [#/Vol] 9.1 E9/L Normal 4.0-11.0 [facility] Comment on above: Performed By: #### 2 369523, 5959559, 2460098, 8213459, 68859479, 2997676 ####[facility] [address] [place] [address] CHEMISTRYOrdered By: Lab ROP User on 11-28-2022 Glucose [Mass/Vol] 141 mg/dL High 55 - 99 mg/dL [facility] C POC Subsection Comment on above: Result Comment: Fausto CHAUDHARY POC Device SN [id number] Invalid Interpretation Code [facility] POC Subsection POC User ID [id number] Invalid Interpretation Code [facility] POC Subsection POC Username JOANNA AG Invalid Interpretation Code [facility] POC Subsection CHEMISTRYOrdered By: SYSTEM SYSTEM on 11-28-2022 Anion gap [Moles/Vol] 7 mmol/L Normal 6 - 16 mEq/L F C Remisol Chloride [Moles/Vol] 112 mmol/L High 101 - 111 mmol/ L [facility] Remisol CO2 [Moles/Vol] 25 mmol/L Normal 21 - 31 mmol/L [facility] Remisol Creatinine [Mass/Vol] 0.9 mg/dL Normal 0.5 - 1.3 mg/d L [facility] Remisol GFR/1.73 sq M.predicted among non-blacks MDRD (S/P/Bld) [Vol rate/Area] 70 mL/min/1.73 m2 Normal >=59mL/min/1.[address] [facility] Chem S Potassium [Moles/Vol] 3.6 mmol/L Normal 3.5 - 5.3 mmol /L [facility] Remisol Sodium [Moles/Vol] 140 mmol/L Normal 135 - 145 mmol/L [facility] Remisol Urea nitrogen [Mass/Vol] 13 mg/dL Normal 5 - 21 mg/dL [facility] Remisol Capillary Glucose POCon 10-31 Glucose [Mass/Vol] 141 mg/dL High 55-99 [facility] Comment on above: Result Comment: Fausto CHAUDHARY Performed By: #### 2 [id number] ####[facility] [address] [place] [address] Glucose [Mass/Vol] 118 mg/dL High 55-99 [facility] Comment on above: Result Comment: Fausto CHAUDHARY Performed By: #### 2 73295606 ####[facility] [address] [place] [address] Glucose [Mass/Vol] 221 mg/dL High 55-99 [facility] Comment on above: Result Comment: Fausto rubi RN/ Performed By: #### 2 62973405 ####[facility] [address] [place] [address] Glucose [Mass/Vol] 147 mg/dL High 55-99 [facility] Comment on above: Result Comment: Fausto rubi RN/ Performed By: #### 2 54716365 ####[facility] [address] [place] [address] Creatinineon 11-28-2022 Creatinine [Mass/Vol] 0.9 mg/dL Normal 0.5-1.3 [facility] Comment on above: Performed By: #### 2 032457, 0398792, 3106603, 6677093, 29796029, 7447891 ####[facility] [address] [place] [address] GetWell Education Videoon GetWell Education Video Yes Patient Avoiding Infections in the Hospital Normal [facility] HEMATOLOGYOrdered By: SYSTEM SYSTEM on 11-28-2022 [...] Clinical Summaryon 11-28-2022 Inpatient Clinical Summary Normal [facility] Inpatient Patient Summaryon 11-28-2022 Inpatient Patient Summary Normal [facility] IntraOperative Documentson 0 11-28-2022 IntraOperative Documents [id number]#[id number]:12 7 Normal [facility] Lyteson 11-28-2022 Anion gap [Moles/Vol] 7 mmol/L Normal 6-16 [facility] Comment on above: Performed By: #### 2 414859, 3157641, 3534474, 8652791, 82212475, 9484824 ####[facility] [address] [place] [address] Chloride [Moles/Vol] 112 mmol/L High 101-111 [facility] Comment on above: Performed By: #### 2 574786, 7261712, 5641727, 0666054, 18722247, 1007964 ####[facility] [address] [place] [address] CO2 [Moles/Vol] 25 mmol/L Normal - [facility] Comment on above: Performed By: #### 2 943149, 6954003, 5413297, 0883900, 15815720, 7266843 ####[facility] [address] [place] [address] Potassium [Moles/Vol] 3.6 mmol/L Normal 3.5-5.3 [facility] Comment on above: Performed By: #### 2 215591, 4062135, 9386136, 1041309, 54771372, 7641955 ####[facility] [address] [place] [address] Sodium [Moles/Vol] 140 mmol/L Normal 135-145 [facility] Comment on above: Performed By: #### 2 945951, 7812531, 9492479, 7314160, 10503235, 6748293 ####[facility] [address] [place] [address] Monitor Recordon 11-28-2022 Monitor Record [id number]#[id number]:12 7 Normal [facility] Monitor Record [id number]#[id number]:12 7 Normal [facility] Monitor Record [id number]#[id number]:12 7 Normal [facility] Progress Note-Physicianon Progress Note-Physician Normal [facility] Comment on above: Result Comment: Elec tronically Signed By: Joaquim Rice DO\.br\Date and Time Signed: 11/28/22 17:17 EDT Progress Note-Physician Normal [facility] Comment on above: Result Comment: Elec tronically Signed By: Soni PADGETT MD\.br\Date and Time Signed: 11/28/22 09:37 EDT eGFRon 11-28-2022 GFR/1.73 sq M.predicted among non-blacks MDRD (S/P/Bld) [Vol rate/Area] 70 mL/min/1.73 m2 Normal >=59 [facility] Comment on above: Order Comment: Order added by Discern Expert. Result Comment: Computer Repair Instructor marquez kidney disease could be indicated at eGFR's of less than 60 mL/min/1.73m2. Kidney failure is indicated at less than 15 mL/min/1.73m2. Performed By: #### 2 430169, 8666204, 6518494, 6270519, 36037280, 4080448 ####[facility] [address] [place] [address] Auto Diffon 11-27-2022 Basophils/100 WBC (Bld) 0.2 % Normal 0.0-2.0 [facility] Comment on above: Order Comment: Order Added by Discern Expert. Performed By: #### 2 603760, 5596165 ####[facility] [address] [place] [address] Basophils/Leukocytes Auto (Bld) [Pure # fraction] 0.0 E9/L Normal 0.0-0.2 [facility] Comment on above: Order Comment: Order Added by Discern Expert. Performed By: #### 2 646042, 9557236 ####[facility] [address] [place] [address] Eosinophils/100 WBC (Bld) 1.8 % Normal 0.0-8.0 [facility] Comment on above: Order Comment: Order Added by Discern Expert. Performed By: #### 2 031808, 5343156 ####[address] [address] Eosinophils/Leukocytes Auto (Bld) [Pure # fraction] 0.2 E9/L Normal 0.0-0.5 [facility] Comment on above: Order Comment: Order Added by Discern Expert. Performed By: #### 2 990547, 8285360 ####[address] [address] Lymphocytes/100 WBC (Bld) 16.0 % Normal 14.0-50.0 [facility] Comment on above: Order Comment: Order Added by Katherine Expert. Performed By: #### 2 236088, 4590804 ####[address] [address] Lymphocytes/Leukocytes Auto (Bld) [Pure # fraction] 1.4 E9/L Normal 1.0-4.0 [facility] Comment on above: Order Comment: Order Added by Katherine Expert. Performed By: #### 2 592827, 3343511 ####[address] [address] Monocytes/100 WBC (Bld) 11.9 % Normal 4.0-14.0 [facility] Comment on above: Order Comment: Order Added by Katherine Expert. Performed By: #### 2 040971, 8357380 ####[address] [address] Monocytes/Leukocytes Auto (Bld) [Pure # fraction] 1.0 E9/L Normal 0.2-1.0 [facility] Comment on above: Order Comment: Order Added by Katherine Expert. Performed By: #### 2 209250, 2688031 ####[address] [address] Neutrophils/100 WBC (Bld) 70.1 % Normal 36.0-75.0 [facility] Comment on above: Order Comment: Order Added by Discern Expert. Performed By: #### 2 263341, 0570525 ####[facility] [address] [place] [address] Neutrophils/Leukocytes Auto (Bld) [Pure # fraction] 6.2 E9/L Normal 2.0-7.5 [facility] Comment on above: Order Comment: Order Added by Discern Expert. Performed By: #### 2 359348, 9872479 ####[facility] [address] [place] [address] BMPon 11-27-2022 Anion gap [Moles/Vol] 7 mmol/L Normal 6-16 [facility] Comment on above: Performed By: #### 2 804441, 37553292 ####[facility] [address] [place] [address] Calcium [Mass/Vol] 8.1 mg/dL Low 8.9-11.1 [facility] Comment on above: Performed By: #### 2 599366, 05746267 ####[facility] [address] [place] [address] Chloride [Moles/Vol] 114 mmol/L High 101-111 [facility] Comment on above: Performed By: #### 2 803215, 27683290 ####[facility] [address] [place] [address] CO2 [Moles/Vol] 23 mmol/L Normal 21-31 [facility] Comment on above: Performed By: #### 2 865883, 99325932 ####[facility] [address] [place] [address] Creatinine [Mass/Vol] 1.0 mg/dL Normal 0.5-1.3 [facility] Comment on above: Performed By: #### 2 855479, 41331998 ####[facility] [address] [place] [address] Glucose [Mass/Vol] 255 mg/dL High 55-199 [facility] Comment on above: Result Comment: If t his glucose result represents a fasting glucose, interpretation should refer to the following reference range: 55-99 mg/dL Performed By: #### 2 845138, 24069581 ####[facility] [address] [place] [address] Potassium [Moles/Vol] 3.8 mmol/L Normal 3.5-5.3 [facility] Comment on above: Performed By: #### 2 759576, 93657213 ####[facility] [address] [place] [address] Sodium [Moles/Vol] 140 mmol/L Normal 135-145 [facility] Comment on above: Performed By: #### 2 882998, 03036540 ####[place] [address] Urea nitrogen [Mass/Vol] 19 mg/dL Normal 5-21 [facility] Comment on above: Performed By: #### 2 129685, 79258962 ####[place] [address]8[address] Urea nitrogen/Creatinine [Mass ratio] 19 No Units Normal 10-20 [facility] Comment on above: Performed By: #### 2 481344, 72982447 ####[address] [address] CBC w/ Auto Diffon 3 Erythrocyte distribution width (RBC) [Ratio] 13.3 % Normal 10.9-14.2 [facility] Comment on above: Performed By: #### 2 022523, 0119373 ####[facility] [address] [place] [address] Hematocrit (Bld) [Volume fraction] 22.7 % Low 34.0-46.0 [facility] Comment on above: Performed By: #### 2 351010, 9375357 ####[facility] [address] [place] [address] Hemoglobin (Bld) [Mass/Vol] 7.8 g/dL Low 12.0-16.0 [facility] Comment on above: Performed By: #### 2 468865, 1930195 ####[address] [address] MCH (RBC) [Entitic mass] 30.6 pg Normal 27.0-34.0 [facility] Comment on above: Performed By: #### 2 647101, 1748388 ####[address] [address] MCHC (RBC) [Mass/Vol] 34.5 g/dL Normal 31.4-36.0 [facility] Comment on above: Performed By: #### 2 172460, 1514350 ####[place] [address] MCV (RBC) [Entitic vol] 88.6 fL Normal 80.0-100.0 [facility] Comment on above: Performed By: #### 2 089093, 5661743 ####[place] [address] Platelet mean volume (Bld) [Entitic vol] 9.3 fL Normal 6.4-10.8 [facility] Comment on above: Performed By: #### 2 835860, 5191590 ####[address] [address] Platelets (Bld) [#/Vol] 133.0 E9/L Low 150.0-500.0 [facility] Comment on above: Performed By: #### 2 941783, 3257881 ####[address] [address] RBC (Bld) [#/Vol] 2.6 E12/L Low 4.3-5.9 [facility] Comment on above: Performed By: #### 2 406310, 7799855 ####[address] [address] WBC corrected for nucl RBC Auto (Bld) [#/Vol] 8.8 E9/L Normal 4.0-11.0 [facility] Comment on above: Performed By: #### 2 107024, 3881758 ####[facility] [address] [place] [address] CHEMISTRYOrdered By: SYSTEM SYSTEM on 11-27-2022 Anion gap [Moles/Vol] 7 mmol/L Normal 6 - 16 mEq/L [facility] Remisol Calcium [Mass/Vol] 8.1 mg/dL Low 8.9 - 11.1 mg/dL [facility] Chloride [Moles/Vol] 114 mmol/L High 101 - 111 mmol/ L [facility] CO2 [Moles/Vol] 23 mmol/L Normal 21 - 31 mmol/L [facility] Remisol Creatinine [Mass/Vol] 1.0 mg/dL Normal 0.5 - 1.3 mg/d L [facility] Remisol GFR/1.73 sq M.predicted among non-blacks MDRD (S/P/Bld) [Vol rate/Area] 61 mL/min/1.73 m2 Normal >=59mL/min/1.[address] [facility] Chem S Glucose [Mass/Vol] 255 mg/dL High 55 - 199 mg/dL [facility] Remisol Potassium [Moles/Vol] 3.8 mmol/L Normal 3.5 - 5.3 mmol /L [facility] Remisol Sodium [Moles/Vol] 140 mmol/L Normal 135 - 145 mmol/L [facility] Remisol Urea nitrogen [Mass/Vol] 19 mg/dL Normal 5 - 21 mg/dL [facility] Remisol Urea nitrogen/Creatinine [Mass ratio] 19 mg/mg Normal 10 - [address] [facility] Remisol Capillary Glucose POCon 10-31 Glucose [Mass/Vol] 169 mg/dL High 55-99 [facility] Comment on above: Result Comment: Fausto rubi RN/ Performed By: #### 2 [id number] ####[facility] [address] [place] [address] Glucose [Mass/Vol] 104 mg/dL High 55-99 [facility] Comment on above: Result Comment: No C overage Given Performed By: #### 2 83084704 ####[facility] [address] [place] [address] Glucose [Mass/Vol] 166 mg/dL High 55-99 [facility] Comment on above: Result Comment: Insu melissa Started Performed By: #### 2 [id number] ####[facility] [address] [place] [address] Glucose [Mass/Vol] 110 mg/dL High 55-99 [facility] Comment on above: Result Comment: No C overage Given Performed By: #### 2 07210565 ####[facility] [address] [place] [address] HEMATOLOGYOrdered By: SYSTEM SYSTEM on 11-27-2022 Basophils/100 [...] 8.8 E9/L Normal 4.0 - 11.0 E9/L [facility] HemeAutoSS Monitor Recordon 11-27-2022 Monitor Record [id number]#1.00CD:12 7 Normal [facility] Monitor Record [id number]#1.00CD:12 7 Normal [facility] Monitor Record [id number]#1.00CD:12 7 [facility] Progress Note-Physicianon Progress Note-Physician [facility] Comment on above: Result Comment: Elec tronically Signed By: Joaquim Rice DO\.br\Date and Time Signed: 11/27/22 20:04 EDT Progress Note-Physician [facility] Comment on above: Result Comment: Elec tronically Signed By: FALLON BANKS, Soni\.br\Date and Time Signed: 11/27/22 09:12 EDT eGFRon 11-27-2022 GFR/1.73 sq M.predicted among non-blacks MDRD (S/P/Bld) [Vol rate/Area] 61 mL/min/1.73 m2 Normal >=59 [facility] Comment on above: Order Comment: Order added by Discern Expert. Result Comment: Computer Repair Instructor marquez kidney disease could be indicated at eGFR's of less than 60 mL/min/1.73m2. Kidney failure is indicated at less than 15 mL/min/1.73m2. Performed By: #### 2 129942, [id number] ####[facility] [address] [place] [address] Auto Diffon 11-26-2022 Basophils/100 WBC (Bld) 0.1 % Normal 0.0-2.0 [facility] Comment on above: Order Comment: Order Added by Katherine Expert. Performed By: #### 2 397429, 9227930 ####[address] [address] Basophils/Leukocytes Auto (Bld) [Pure # fraction] 0.0 E9/L Normal 0.0-0.2 [facility] Comment on above: Order Comment: Order Added by Katherine Expert. Performed By: #### 2 886563, 9269330 ####[address] [address] Eosinophils/100 WBC (Bld) 0.0 % Normal 0.0-8.0 [facility] Comment on above: Order Comment: Order Added by Katherine Expert. Performed By: #### 2 694137, 9435766 ####[address] [address] Eosinophils/Leukocytes Auto (Bld) [Pure # fraction] 0.0 E9/L Normal 0.0-0.5 [facility] Comment on above: Order Comment: Order Added by Katherine Expert. Performed By: #### 2 171704, 2923532 ####[address] [address] Lymphocytes/100 WBC (Bld) 4.8 % Low 14.0-50.0 [facility] Comment on above: Order Comment: Order Added by Discern Expert. Performed By: #### 2 289986, 8999952 ####[place] [address] [place] [address] Lymphocytes/Leukocytes Auto (Bld) [Pure # fraction] 0.4 E9/L Low 1.0-4.0 [facility] Comment on above: Order Comment: Order Added by Discern Expert. Performed By: #### 2 029356, 2907261 ####[address] [address] Monocytes/100 WBC (Bld) 6.9 % Normal 4.0-14.0 [facility] Comment on above: Order Comment: Order Added by Discern Expert. Performed By: #### 2 630730, 4760445 ####[address] [address] Monocytes/Leukocytes Auto (Bld) [Pure # fraction] 0.5 E9/L Normal 0.2-1.0 [facility] Comment on above: Order Comment: Order Added by Discern Expert. Performed By: #### 2 967404, 2603503 ####[address] [address] Neutrophils/100 WBC (Bld) 88.2 % High 36.0-75.0 [facility] Comment on above: Order Comment: Order Added by Discern Expert. Performed By: #### 2 319550, 8565078 ####[address] [address] Neutrophils/Leukocytes Auto (Bld) [Pure # fraction] 6.6 E9/L Normal 2.0-7.5 [facility] Comment on above: Order Comment: Order Added by Discern Expert. Performed By: #### 2 054194, 3437454 ####[address] [address] BMPon 11-26-2022 Anion gap [Moles/Vol] 7 mmol/L Normal 6-16 [facility] Comment on above: Performed By: #### 2 049928, 30782559 ####[address] [place] [address] Calcium [Mass/Vol] 7.9 mg/dL Low 8.9-11.1 [facility] Comment on above: Performed By: #### 2 527445, 29704703 ####[facility] [address] [place] [address] Chloride [Moles/Vol] 108 mmol/L Normal 101-111 [facility] Comment on above: Performed By: #### 2 561504, 98952633 ####[facility] [address] [place] [address] CO2 [Moles/Vol] 22 mmol/L Normal 21-31 [facility] Comment on above: Performed By: #### 2 889593, 04327402 ####[facility] [address] [place] [address] Creatinine [Mass/Vol] 1.3 mg/dL Normal 0.5-1.3 [facility] Comment on above: Performed By: #### 2 321222, 42622064 ####[facility] [address] [place] [address] Glucose [Mass/Vol] 353 mg/dL High 55-199 [facility] Comment on above: Result Comment: If t his glucose result represents a fasting glucose, interpretation should refer to the following reference range: 55-99 mg/dL Performed By: #### 2 249167, 97667304 ####[facility] [address] [place] [address] Potassium [Moles/Vol] 4.1 mmol/L Normal 3.5-5.3 [facility] Comment on above: Performed By: #### 2 507082, 27748968 ####[facility] [address] [place] [address] Sodium [Moles/Vol] 133 mmol/L Low 135-145 [facility] Comment on above: Performed By: #### 2 964603, 68660480 ####[facility] [address] [place] [address] Urea nitrogen [Mass/Vol] 21 mg/dL Normal 5-21 [facility] Comment on above: Performed By: #### 2 089673, 06071461 ####[facility] [address] [place] [address] Urea nitrogen/Creatinine [Mass ratio] 16 No Units Normal 10-20 [facility] Comment on above: Performed By: #### 2 556714, 21900241 ####[facility] [address] [place] [address] CBC w/ Auto Diffon 3 Erythrocyte distribution width (RBC) [Ratio] 12.7 % Normal 10.9-14.2 [facility] Comment on above: Performed By: #### 2 291202, 3744371 ####[address] [address] Hematocrit (Bld) [Volume fraction] 22.2 % Low 34.0-46.0 [facility] Comment on above: Performed By: #### 2 342664, 4695844 ####[address] [address] Hemoglobin (Bld) [Mass/Vol] 7.6 g/dL Low 12.0-16.0 [facility] Comment on above: Performed By: #### 2 837230, 8210239 ####[address] [address] MCH (RBC) [Entitic mass] 30.0 pg Normal 27.0-34.0 [facility] Comment on above: Performed By: #### 2 983289, 8648888 ####[facility] [address] [place] [address] MCHC (RBC) [Mass/Vol] 34.1 g/dL Normal 31.4-36.0 [facility] Comment on above: Performed By: #### 2 096381, 5121172 ####[address] [address] MCV (RBC) [Entitic vol] 88.1 fL Normal 80.0-100.0 [facility] Comment on above: Performed By: #### 2 836105, 9629963 ####[facility] [address] [place] [address] Platelet mean volume (Bld) [Entitic vol] 8.9 fL Normal 6.4-10.8 [facility] Comment on above: Performed By: #### 2 198043, 2316920 ####[facility] [address] [place] [address] Platelets (Bld) [#/Vol] 121.0 E9/L Low 150.0-500.0 [facility] Comment on above: Performed By: #### 2 064089, 7983317 ####[address] [address] RBC (Bld) [#/Vol] 2.5 E12/L Low 4.3-5.9 [facility] Comment on above: Performed By: #### 2 714403, 8440101 ####[facility] [address] [place] [address] WBC corrected for nucl RBC Auto (Bld) [#/Vol] 7.5 E9/L Normal 4.0-11.0 [facility] Comment on above: Performed By: #### 2 249382, 0529175 ####[address] [address] CHEMISTRYOrdered By: SYSTEM SYSTEM on 11-26-2022 Anion [...] rate/Area] 45 mL/min/1.73 m2 Low >=59mL/min/1.[address] [facility] Chem S Glucose [Mass/Vol] 353 mg/dL High 55 - 199 mg/dL [facility] Remisol Potassium [Moles/Vol] 4.1 mmol/L Normal 3.5 - 5.3 mmol /L [facility] Remisol Sodium [Moles/Vol] 133 mmol/L Low 135 - 145 mmol/L [facility] Remisol Urea nitrogen [Mass/Vol] 21 mg/dL Normal 5 - 21 mg/dL [facility] Remisol Urea nitrogen/Creatinine [Mass ratio] 16 mg/mg Normal 10 - [address] [facility] Remisol Capillary Glucose POCon 10-30 Glucose [Mass/Vol] 184 mg/dL High 55- [facility] Comment on above: Result Comment: Fausto CHAUDHARY Performed By: #### 2 [id number] ####[facility] [address] [place] [address] Glucose [Mass/Vol] 231 mg/dL High - [facility] Comment on above: Performed By: #### 2 44115179 ####[facility] [address] [place] [address] Glucose [Mass/Vol] 248 mg/dL High - [facility] Comment on above: Result Comment: Fausto CHAUDHARY Performed By: #### 2 36124084 ####[facility] [address] [place] [address] Glucose [Mass/Vol] 299 mg/dL High 55- [facility] Comment on above: Result Comment: Fausto CHAUDHARY Performed By: #### 2 12863904 ####[facility] [address] [place] [address] Consent for Anesthesiaon Consent for Anesthesia [id number]#1.00CD:12 7 Normal [facility] HEMATOLOGYOrdered By: Chrissy Bradford on 11-26-2022 [...] 8.9 fL Normal 6.4 - 10.[address] [facility] HemeAutoSS Platelets (Bld) [#/Vol] 121.0 E9/L Low 150.0 - 500.0 E9/L [facility] HemeAutoSS RBC (Bld) [#/Vol] 2.5 E12/L Low 4.3 - 5.9 E12/L [facility] HemeAutoSS WBC corrected for nucl RBC Auto (Bld) [#/Vol] 7.5 E9/L Normal 4.0 - 11.0 E9/L [facility] HemeAutoSS Hct & Hgbon 11-26-2022 Hematocrit (Bld) [Volume fraction] 23.2 % Low 34.0-46.0 [facility] Comment on above: Performed By: #### 1 1122430 ####[facility] [address] [place] [address] Hemoglobin (Bld) [Mass/Vol] 8.0 g/dL Low 12.0-16.0 [facility] Comment on above: Performed By: #### 1 7184637 ####[facility] [address] [place] [address] Insurance Correspondence Off iceon 11-26-2022 Insurance Correspondence Office [id number]#1.00CD:127 Normal [facility] Interdisciplinary Note - Hardeep e Manageron 11-26-2022 Interdisciplinary Note - Thoracic Surgeon [facility] Comment on above: Result Comment: Elec tronically Signed By: Radha Prabhakar\.br\Date and Time Signed: 11/26/22 11:36 EDT Interdisciplinary Note - Timo n 11-26-2022 Interdisciplinary Note - OT Normal [facility] Interdisciplinary Note - PTo n 11-26-2022 Interdisciplinary Note - PT Normal [facility] IntraOperative Documentson 0 11-26-2022 IntraOperative Documents [id number]#[id number]:12 7 Normal [facility] Progress Note-Physicianon Progress Note-Physician Normal [facility] Comment on above: Result Comment: Elec tronically Signed By: MD Juan, Nomi F\.br\Date and Time Signed: 11/26/22 15:06 EDT Progress Note-Physician Normal [facility] Comment on above: Result Comment: Elec tronically Signed By: MD Juan, Nomi F\.br\Date and Time Signed: 11/26/22 15:03 EDT Progress Note-Physician Normal [facility] Comment on above: Result Comment: Elec tronically Signed By: Anu MANZANO\.br\Date and Time Signed: 11/26/22 11:10 EDT\.br\Electronically Co-Signed By: Nesha SHANKAR MD\.br\Date and Time Co-Signed: 11/26/22 11:41 EDT RCOon 11-26-2022 # of Units 1 Invalid Interpretation Code [facility] Comment on above: Result Comment: 11/26 10:54 [id number] product ready and called to 3N MARVIN at 11/26/2022 10:54:18 EDT by KARISSA. Performed By: #### 1 [id number] ####[facility] [address] [facility] [place] [address] Date Required [id number] Invalid Interpretation Code [facility] Comment on above: Performed By: #### 1 [id number] ####[facility] [address] [facility] [place] [address] Order to Transfuse Yes Normal [facility] Comment on above: Performed By: #### 1 5369890 ####[facility] [address] [facility] [place] [address] Product Type None Required Invalid Interpretation Code [facility] Comment on above: Performed By: #### 1 [id number] ####[facility] [address] [facility] [place] [address] eGFRon 11-26-2022 GFR/1.73 sq M.predicted among non-blacks MDRD (S/P/Bld) [Vol rate/Area] 45 mL/min/1.73 m2 Low >=59 [facility] Comment on above: Order Comment: Order added by Discern Expert. Result Comment: Computer Repair Instructor marquez kidney disease could be indicated at eGFR's of less than 60 mL/min/1.73m2. Kidney failure is indicated at less than 15 mL/min/1.73m2. Performed By: #### 2 088479, [id number] ####[place] [address] [place] [address] Auto Diffon 11-25-2022 Basophils/100 WBC (Bld) 0.4 % Normal 0.0-2.0 [facility] Comment on above: Order Comment: Order Added by Discern Expert. Performed By: #### 2 755887, 4215858, 72647498, 5184365, 7003165, 7941761, 1539862 ####[address] [address] Basophils/Leukocytes Auto (Bld) [Pure # fraction] 0.0 E9/L Normal 0.0-0.2 [facility] Comment on above: Order Comment: Order Added by Discern Expert. Performed By: #### 2 061016, 0996372, 71888539, 8108955, 1282881, 9690393, 2236499 ####[address] [address] Eosinophils/100 WBC (Bld) 4.1 % Normal 0.0-8.0 [facility] Comment on above: Order Comment: Order Added by Discern Expert. Performed By: #### 2 824296, 6086032, 06056144, 2657619, 6570777, 1541243, 7012801 ####[facility] [address] [place] [address] Eosinophils/Leukocytes Auto (Bld) [Pure # fraction] 0.2 E9/L Normal 0.0-0.5 [facility] Comment on above: Order Comment: Order Added by Katherine Expert. Performed By: #### 2 856208, 5309540, 48849374, 3291708, 2551349, 1071085, 3122209 ####[address] [place] [address] Lymphocytes/100 WBC (Bld) 28.6 % Normal 14.0-50.0 [facility] Comment on above: Order Comment: Order Added by Discern Expert. Performed By: #### 2 912506, 0611982, 67596494, 7132605, 8624522, 3252263, 4574438 ####[address] [place] [address] Lymphocytes/Leukocytes Auto (Bld) [Pure # fraction] 1.4 E9/L Normal 1.0-4.0 [facility] Comment on above: Order Comment: Order Added by Katherine Expert. Performed By: #### 2 417391, 1048131, 81380168, 3138885, 4118388, 4992679, 3689829 ####[address] [address] Monocytes/100 WBC (Bld) 13.8 % Normal 4.0-14.0 [facility] Comment on above: Order Comment: Order Added by Katherine Expert. Performed By: #### 2 840474, 0193915, 52061311, 8980045, 8815462, 3720012, 8581981 ####[address] [address] Monocytes/Leukocytes Auto (Bld) [Pure # fraction] 0.7 E9/L Normal 0.2-1.0 [facility] Comment on above: Order Comment: Order Added by Katherine Expert. Performed By: #### 2 728807, 6593507, 03397690, 0862740, 6769250, 6943951, 2308431 ####[address] [place] [address] Neutrophils/100 WBC (Bld) 53.1 % Normal 36.0-75.0 [facility] Comment on above: Order Comment: Order Added by Katherine Expert. Performed By: #### 2 453166, 9098418, 27112761, 7826114, 8023655, 8377601, 2285763 ####[address] [address] Neutrophils/Leukocytes Auto (Bld) [Pure # fraction] 2.6 E9/L Normal 2.0-7.5 [facility] Comment on above: Order Comment: Order Added by Discern Expert. Performed By: #### 2 461333, 6309182, 21798260, 7534209, 6744489, 5846705, 5297557 ####[facility] [address] [place] [address] BMPon 11-25-2022 Anion gap [Moles/Vol] 7 mmol/L Normal 6-16 [facility] Comment on above: Performed By: #### 2 569267, 7632074, 78010884, 9492942, 0805749, 7277822, 1837919 ####[facility] [address] [place] [address] Calcium [Mass/Vol] 8.6 mg/dL Low 8.9-11.1 [facility] Comment on above: Performed By: #### 2 906898, 8743146, 16687224, 0235751, 9779769, 3610029, 6087672 ####[facility] [address] [place] [address] Chloride [Moles/Vol] 114 mmol/L High 101-111 [facility] Comment on above: Performed By: #### 2 178698, 0841040, 06296480, 4365589, 1745420, 0063018, 8376569 ####[facility] [address] [place] [address] CO2 [Moles/Vol] 24 mmol/L Normal 21-31 [facility] Comment on above: Performed By: #### 2 733516, 3034648, 03489792, 0653691, 4679432, 9983448, 7945026 ####[facility] [address] [place] [address] Creatinine [Mass/Vol] 1.0 mg/dL Normal 0.5-1.3 [facility] Comment on above: Performed By: #### 2 808501, 8039749, 52583974, 3636987, 2767452, 6386414, 3502279 ####[facility] [address] [place] [address] Glucose [Mass/Vol] 98 mg/dL Normal 55-199 [facility] Comment on above: Result Comment: If t his glucose result represents a fasting glucose, interpretation should refer to the following reference range: 55-99 mg/dL Performed By: #### 2 164149, 7189979, 21177478, 4894188, 5106417, 8757702, 5254255 ####[facility] [address] [place] [address] Potassium [Moles/Vol] 4.0 mmol/L Normal 3.5-5.3 [facility] Comment on above: Performed By: #### 2 516235, 8816282, 55342847, 1104852, 5581130, 7737659, 3601164 ####[facility] [address] [place] [address] Sodium [Moles/Vol] 141 mmol/L Normal 135-145 [facility] Comment on above: Performed By: #### 2 943004, 0717677, 15076444, 6868012, 8216314, 3102843, 4474698 ####[facility] [address] [place] [address] Urea nitrogen [Mass/Vol] 13 mg/dL Normal 5-21 [facility] Comment on above: Performed By: #### 2 005450, 9677887, 71336962, 9762317, 8952652, 1713870, 2113464 ####[facility] [address] [place] [address] Urea nitrogen/Creatinine [Mass ratio] 13 No Units Normal 10-20 [facility] Comment on above: Performed By: #### 2 825687, 6082385, 78541535, 7162837, 0042585, 2217716, 6073703 ####[facility] [address] [place] [address] CBC w/ Auto Diffon 3 Erythrocyte distribution width (RBC) [Ratio] 13.1 % Normal 10.9-14.2 [facility] Comment on above: Performed By: #### 2 012285, 5837340, 31616767, 9550613, 5257069, 1519828, 6000865 ####[facility] [address] [place] [address] Hematocrit (Bld) [Volume fraction] 28.1 % Low 34.0-46.0 [facility] Comment on above: Performed By: #### 2 017487, 0707945, 52205011, 8377896, 1229421, 3997553, 9078178 ####[address] [place] [address] Hemoglobin (Bld) [Mass/Vol] 9.6 g/dL Low 12.0-16.0 [facility] Comment on above: Performed By: #### 2 169116, 7624502, 78151187, 2789857, 2150388, 1870424, 4423088 ####[facility] [address] [place] [address] MCH (RBC) [Entitic mass] 30.3 pg Normal 27.0-34.0 [facility] Comment on above: Performed By: #### 2 778343, 4999294, 22512052, 8698826, 1253384, 5870784, 3138240 ####[address] [address] MCHC (RBC) [Mass/Vol] 34.0 g/dL Normal 31.4-36.0 [facility] Comment on above: Performed By: #### 2 114777, 3590692, 37663000, 3455560, 5796913, 2358078, 4348784 ####[address] [address] MCV (RBC) [Entitic vol] 89.1 fL Normal 80.0-100.0 [facility] Comment on above: Performed By: #### 2 268221, 1646447, 72954020, 0972767, 1099298, 2558342, 4523528 ####[facility] [address] [place] [address] Platelet mean volume (Bld) [Entitic vol] 8.7 fL Normal 6.4-10.8 [facility] Comment on above: Performed By: #### 2 642592, 7391592, 14532736, 6178124, 4413313, 8997675, 1259874 ####[address] [place] [address] Platelets (Bld) [#/Vol] 91.0 E9/L Low 150.0-500.0 [facility] Comment on above: Result Comment: Slid e reviewed by 11/25/2022 07:41:07 EDT.Platelet count verified using smear estimate Performed By: #### 2 522506, 3883815, 82256516, 7165573, 6771740, 5745089, 1185353 ####[address] [address] RBC (Bld) [#/Vol] 3.2 E12/L Low 4.3-5.9 [facility] Comment on above: Performed By: #### 2 178143, 9169987, 10162545, 7493006, 3609881, 1437986, 2672090 ####[address] [address] WBC corrected for nucl RBC Auto (Bld) [#/Vol] 4.8 E9/L Normal 4.0-11.0 [facility] Comment on above: Performed By: #### 2 175911, 0302538, 03365943, 3719287, 4484963, 2184368, 1343517 ####[address] [place] [address] CBC w/Indiceson 11-25-2022 Erythrocyte distribution width (RBC) [Ratio] 13.0 % Normal 10.9-14.2 [facility] Comment on above: Performed By: #### 2 140362 ####[address] [place] [address] Hematocrit (Bld) [Volume fraction] 28.2 % Low 34.0-46.0 [facility] Comment on above: Performed By: #### 2 436290 ####[address] [address] Hemoglobin (Bld) [Mass/Vol] 9.2 g/dL Low 12.0-16.0 [facility] Comment on above: Performed By: #### 2 736232 ####[address] [address] MCH (RBC) [Entitic mass] 29.5 pg Normal 27.0-34.0 [facility] Comment on above: Performed By: #### 2 251024 ####[address] [address] MCHC (RBC) [Mass/Vol] 32.7 g/dL Normal 31.4-36.0 [facility] Comment on above: Performed By: #### 2 828966 ####[address] [address] MCV (RBC) [Entitic vol] 90.4 fL Normal 80.0-100.0 [facility] Comment on above: Performed By: #### 2 322833 ####[address] [address] Platelet mean volume (Bld) [Entitic vol] 9.1 fL Normal 6.4-10.8 [facility] Comment on above: Performed By: #### 2 524186 ####[address] [address] Platelets (Bld) [#/Vol] 128.0 E9/L Low 150.0-500.0 [facility] Comment on above: Performed By: #### 2 310401 ####[address] [address] RBC (Bld) [#/Vol] 3.1 E12/L Low 4.3-5.9 [facility] Comment on above: Performed By: #### 2 155895 ####[facility] [address] [place] [address] WBC corrected for nucl RBC Auto (Bld) [#/Vol] 11.7 E9/L High 4.0-11.0 [facility] Comment on above: Performed By: #### 2 453433 ####[facility] [address] [place] [address] CHEMISTRYOrdered By: SYSTEM SYSTEM on 11-25-2022 Calcium [...] 10-30 Glucose [Mass/Vol] 411 mg/dL High 55-99 [facility] Comment on above: Result Comment: Fausto CHAUDHARY Performed By: #### 2 90621745 ####[facility] [address] [facility] [place] [address] Glucose [Mass/Vol] 409 mg/dL High 55-99 [facility] Comment on above: Result Comment: Fausto CHAUDHARY Performed By: #### 2 92310351 ####[facility] [address] [facility] [place] [address] Glucose [Mass/Vol] 127 mg/dL High 55-99 [facility] Comment on above: Result Comment: No C overage Given Performed By: #### 2 49882526 ####[facility] [address] [place] [address] Glucose [Mass/Vol] 88 mg/dL Normal 55-99 [facility] Comment on above: Performed By: #### 2 65612038 ####[facility] [address] [place] [address] Glucose [Mass/Vol] 87 mg/dL Normal 55-99 [facility] Comment on above: Result Comment: Fausto CHAUDHARY Performed By: #### 2 84530229 ####[facility] [address] [facility] [place] [address] Glucose [Mass/Vol] 98 mg/dL Normal 55-99 [facility] Comment on above: Result Comment: Fausto CHAUDHARY Performed By: #### 2 33302848 ####[facility] [address] [facility] [place] [address] Glucose [Mass/Vol] 108 mg/dL High 55-99 [facility] Comment on above: Result Comment: Fausto CHAUDHARY Performed By: #### 2 01000125 ####[facility] [address] [place] [address] Consent for Procedure/Surger yon 11-25-2022 Consent for Procedure/Surgery [id number]#1.00CD:12 7 Normal [facility] Ferritinon 11-25-2022 Ferritin [Mass/Vol] 51 ng/mL Normal 11-307 [facility] Comment on above: Result Comment: NORM ALS MEN <30 YRS 16-132 ng/mL MEN >30 YRS 8-338 ng/mL WOMEN (PREMEN) 6-104 ng/mL WOMEN (POSTMEN) 12-210 ng/mL Performed By: #### 2 799160, 2833973, 50867615, 99441466, 1060918, 6780423, 0995308, 6161202, 1619638 ####[facility] [address] [place] [address] Folateon 11-25-2022 Folate [Mass/Vol] 5.4 ng/mL Low >=6.7 [facility] Comment on above: Performed By: #### 2 763901, 7841904, 04828074, 24674748, 6919209, 0051529, 8872502, 6558533, 0874764 ####[facility] [address] [place] [address] JrgU9hkk 11-25-2022 HbA1c (Bld) [Mass fraction] 6.3 % High <=5.9 [facility] Comment on above: Performed By: #### 1 9995837, 6710756, 2132708, 73613346, 8609106, 05031506, 6684972, 0828919, 777930988, 6842040, 0125457 ####[facility] [address] [place] [address] Insurance Correspondence Off iceon 11-25-2022 Insurance Correspondence Office [id number]#1.00CD:12 7 Normal [facility] Interdisciplinary Note - Hardeep e Manageron 11-25-2022 Interdisciplinary Note - Thoracic Surgeon [facility] Comment on above: Result Comment: Elec tronically Signed By: Radha Prabhakar\.br\Date and Time Signed: 11/25/22 12:03 EDT Ironon 11-25-2022 Iron [Mass/Vol] 42 microgram/dL Normal 35-153 [facility] Comment on above: Order Comment: Iron order added by Discern Rule: gl_ftmc_add_iron_trans . Performed By: #### 2 368971, 7513941, 78114902, 9973803, 7350108, 7532076, 1940540 ####[facility] [address] [place] [address] Iron Saturationon 11-25-2022 Iron binding capacity [Mass/Vol] 260 microgram/dL Normal 250-400 [facility] Comment on above: Performed By: #### 2 524890, 4632798, 77255359, 6818385, 8833180, 7183679, 1700801 ####[facility] [address] [place] [address] Iron saturation [Mass fraction] 16 % Low 20-50 [facility] Comment on above: Performed By: #### 2 516140, 3107120, 04843131, 0768583, 6717170, 6636856, 7951795 ####[facility] [address] [place] [address] Main OR PACU I Recordon 10-30 Main OR PACU I Record Normal [facility] Main OR Preoperative Recordo n 11-25-2022 Main OR Preoperative Record Normal [facility] Message from Medicareon 10-30 Message from Medicare [id number]#1.00CD:12 7 Normal [facility] Monitor Recordon 11-25-2022 Monitor Record [id number]#1.00CD:12 7 Normal [facility] Monitor Record [id number]#1.00CD:12 7 Normal [facility] Monitor Record [id number]#1.00CD:12 7 Normal [facility] Operative Reporton 3 Operative Report Normal [facility] Comment on above: Result Comment: Elec tronically Signed By: Joaquim Rice DO\.br\Date and Time Signed: 11/25/22 17:00 EDT Outpatient Surgery Discharge Instructionon 11-25-2022 Outpatient Surgery Discharge Instruction Normal [facility] Progress Note-Physicianon Progress Note-Physician Normal [facility] Comment on above: Result Comment: Elec tronically Signed By: Anu MANZANO\.br\Date and Time Signed: 11/25/22 14:33 EDT\.br\Electronically Co-Signed By: Nesha SHANKAR MD\.br\Date and Time Co-Signed: 11/25/22 14:49 EDT Transferrinon 11-25-2022 Transferrin [Mass/Vol] 186 mg/dL Low 200-370 [facility] Comment on above: Order Comment: Trans micheline order added by Discern Rule: gl_ftmc_add_iron_trans . Performed By: #### 2 815533, 6856308, 40832346, 0301329, 5197903, 0728588, 6201195 ####[facility] [address] [place] [address] U Drug Screenon 11-25-2022 Opiates Screen Ql (U) Positive Abnormal Negative [facility] Comment on above: Result Comment: Nega tive Cutoff: <300 ng/mL Performed By: #### 2 570004 ####[facility] [address] [place] [address] Amphetamines Screen method >1000 ng/mL Ql (U) Negative Normal Negative [facility] Comment on above: Result Comment: Nega tive Cutoff: <1000 ng/mL Performed By: #### 2 196961 ####[facility] [address] [place] [address] Barbiturates Screen Ql (U) Negative Normal Negative [facility] Comment on above: Result Comment: Nega tive Cutoff: <200 ng/mL Performed By: #### 2 423041 ####[facility] [address] [place] [address] Benzodiazepines Ql (U) Negative Normal Negative [facility] Comment on above: Result Comment: Nega tive Cutoff: <200 ng/mL Performed By: #### 2 338053 ####[facility] [address] [place] [address] Cocaine Ql (U) Negative Normal Negative [facility] Comment on above: Result Comment: Nega tive Cutoff: <300 ng/mL Performed By: #### 2 924215 ####[facility] [address] [place] [address] Phencyclidine Screen method >25 ng/mL Ql (U) Negative Normal Negative [facility] Comment on above: Result Comment: Nega tive Cutoff: <25 ng/mLThese drug screen results are to be used for medical (i.e., treatment) purposes only. Unconfirmed drug screening results must not be used for non-medical purposes (e.g., employment testing, legal testing). Performed By: #### 2 451405 ####[address] [address] Tetrahydrocannabinol Screen method >50 ng/mL Ql (U) Negative Normal Negative [facility] Comment on above: Result Comment: Nega tive Cutoff: <50 ng/mL Performed By: #### 2 101399 ####[address] [place] [address] UA With Cult Reflexon 2022 Bilirubin Ql (U) Negative Normal Negative [facility] Comment on above: Performed By: #### 1 9405244 ####[facility] [address] [place] [address] Clarity (U) CLEAR Normal Clear [facility] Comment on above: Performed By: #### 1 9383042 ####[address] [place] [address] Color (U) YELLOW Normal Yellow [facility] Comment on above: Performed By: #### 1 1980130 ####[address] [place] [address] Epithelial cells.squamous LM.HPF (Urine sed) [#/Area] 0-2 Normal 0-[address] [facility] Comment on above: Performed By: #### 1 2224539 ####[facility] [address] [place] [address] Glucose Test strip (U) [Mass/Vol] Negative Normal Negative [facility] Comment on above: Performed By: #### 1 3492651 ####[address] [address] Hemoglobin Ql (U) Negative Normal Negative [facility] Comment on above: Performed By: #### 1 0951180 ####[address] [address] Ketones (U) [Mass/Vol] Negative Normal Negative [facility] Comment on above: Performed By: #### 1 5245132 ####[address] [address] [place].plasma/[place] .RBC (Bld) [Mass ratio] 0-3 Normal 0-3 [facility] Comment on above: Performed By: #### 1 4721444 ####[address] [address] Nitrite Ql (U) Negative Normal Negative [facility] Comment on above: Performed By: #### 1 8915813 ####[address] [address] pH (U) 6.0 [pH] Invalid Interpretation Code 5.0-9.0 [facility] Comment on above: Performed By: #### 1 6219476 ####[address] [address] Protein (U) [Mass/Vol] Negative Normal Negative [facility] Comment on above: Performed By: #### 1 2323696 ####[address] [address] Specific gravity (U) [Rel density] 1.010 Invalid Interpretation Code 1.005-1.030 [facility] Comment on above: Performed By: #### 1 8458778 ####[facility] [address] [place] [address] Type of Urine collection method Clean Catch Normal [facility] Comment on above: Performed By: #### 1 9350932 ####[facility] [address] [place] [address] Urobilinogen Qn (U) 0.2 {Papa'U}/dL Normal 0.0-1.0 [facility] Comment on above: Performed By: #### 1 1337989 ####[facility] [address] [place] [address] WBC Auto Ql (U) TRACE Abnormal Negative [facility] Comment on above: Performed By: #### 1 2834781 ####[facility] [address] [place] [address] WBC LM.HPF (Urine sed) [#/Area] 0-5 Normal 0-5 [facility] Comment on above: Performed By: #### 1 3836519 ####[facility] [address] [place] [address] URINALYSISOrdered By: David Gasca on 11-25-2022 Bilirubin [...] AM) Normal Negative [facility] UA Auto SS [place].plasma/[place] .RBC (Bld) [Mass ratio] 0-3 /HPF Normal [...] FT UA Auto SS Urobilinogen Qn (U) 0.6899647 {Papa'U}/dL Normal 0.0 - 1.0 EU/dL [facility] UA Auto SS WBC Auto Ql (U) Trace *ABN* (11/25/22 3:09 AM) Invalid Interpretation Code Negative FT UA Auto SS WBC LM.HPF (Urine sed) [#/Area] 0-5 /HPF Normal 0-5/HPF FT UA Auto SS Vit B12on 11-25-2022 Cobalamin (Vitamin B12) [Mass/Vol] 212 pg/mL Normal 50-1500 [facility] Comment on above: Performed By: #### 2 343498, 7616644, 12128012, 21808110, 1679019, 8218017, 9121446, 0147432, 7420818 ####[facility] [address] [place] [address] XR Hip 1 View Right + Pelvis on 11-25-2022 XR Hip 1 View Right + Pelvis Normal [facility] eGFRon 11-25-2022 GFR/1.73 sq M.predicted among non-blacks MDRD (S/P/Bld) [Vol rate/Area] 61 mL/min/1.73 m2 Normal >=59 [facility] Comment on above: Order Comment: Order added by Discern Expert. Result Comment: Computer Repair Instructor marquez kidney disease could be indicated at eGFR's of less than 60 mL/min/1.73m2. Kidney failure is indicated at less than 15 mL/min/1.73m2. Performed By: #### 2 127792, 6753125, 97509151, 9897266, 7306234, 0235946, 7075911 ####[facility] [address] [place] [address] ABO/Rhon 11-24-2022 ABO/Rh Positive Invalid Interpretation Code [facility] Comment on above: Performed By: #### 1 2557053, 7254592, 45079458, 09724046 ####[facility] [address] [place] [address] ABO/Rh History Checkon 11-24 ABO/Rh History Check Verified Hx Blood Type Normal [facility] Comment on above: Performed By: #### 1 1681448, 8403015, 07018146, 22547616 ####[address] [address] ABSCon 11-24-2022 ABSC Gel Interp Negative Normal [facility] Comment on above: Performed By: #### 1 9232809, 3742691, 26898374, 32886880 ####[facility] [address] [place] [address] Auto Diffon 11-24-2022 Basophils/100 WBC (Bld) 0.3 % Normal 0.0-2.0 [facility] Comment on above: Order Comment: Order Added by Discern Expert. Performed By: #### 1 5010629, 9729296, 6811302, 12801616, 4228490, 47848620, 0470592, 0764019, 626271265, 0963726, 4868957 ####[address] [place] [address] Basophils/Leukocytes Auto (Bld) [Pure # fraction] 0.0 E9/L Normal 0.0-0.2 [facility] Comment on above: Order Comment: Order Added by Discern Expert. Performed By: #### 1 4272496, 2684489, 7200547, 62574634, 4335177, 57667216, 8625639, 7213982, 423809671, 4126936, 6259657 ####[facility] [address] [place] [address] Eosinophils/100 WBC (Bld) 3.2 % Normal 0.0-8.0 [facility] Comment on above: Order Comment: Order Added by Discern Expert. Performed By: #### 1 7499525, 5252702, 7363009, 34406855, 0803512, 59579396, 5805098, 9972310, 926688292, 7923129, 4474247 ####[address] [place] [address] Eosinophils/Leukocytes Auto (Bld) [Pure # fraction] 0.2 E9/L Normal 0.0-0.5 [facility] Comment on above: Order Comment: Order Added by Discern Expert. Performed By: #### 1 3491777, 5576921, 1108139, 92915323, 6877505, 94569147, 8988780, 1097646, 987202069, 1453034, 0632414 ####[address] [address] Lymphocytes/100 WBC (Bld) 27.3 % Normal 14.0-50.0 [facility] Comment on above: Order Comment: Order Added by Discern Expert. Performed By: #### 1 7621907, 1544949, 0205023, 76279837, 2060820, 55105316, 2880064, 4456735, 168882464, 9222479, 3734715 ####[address] [place] [address] Lymphocytes/Leukocytes Auto (Bld) [Pure # fraction] 1.7 E9/L Normal 1.0-4.0 [facility] Comment on above: Order Comment: Order Added by Discern Expert. Performed By: #### 1 0259753, 5555140, 2592058, 48625824, 7116789, 17660846, 6349924, 0717436, 597995946, 0980439, 3998844 ####[address] [place] [address] Monocytes/100 WBC (Bld) 12.1 % Normal 4.0-14.0 [facility] Comment on above: Order Comment: Order Added by Discern Expert. Performed By: #### 1 3043661, 9984649, 2736517, 97105459, 0473942, 46244779, 9276894, 1387234, 537888730, 5984738, 6565064 ####[facility] [address] [place] [address] Monocytes/Leukocytes Auto (Bld) [Pure # fraction] 0.8 E9/L Normal 0.2-1.0 [facility] Comment on above: Order Comment: Order Added by Discern Expert. Performed By: #### 1 4625867, 2181646, 7110065, 16662365, 0207591, 53895521, 0418877, 7218340, 368753353, 4218491, 8830011 ####[address] [place] [address] Neutrophils/100 WBC (Bld) 57.1 % Normal 36.0-75.0 [facility] Comment on above: Order Comment: Order Added by Discern Expert. Performed By: #### 1 0179731, 8203942, 3762229, 20471670, 6000840, 02784278, 7718464, 2133421, 124941801, 7028611, 2998273 ####[address] [place] [address] Neutrophils/Leukocytes Auto (Bld) [Pure # fraction] 3.7 E9/L Normal 2.0-7.5 [facility] Comment on above: Order Comment: Order Added by Discern Expert. Performed By: #### 1 4597488, 9424204, 3979729, 33578111, 0520388, 25083178, 3827681, 3986282, 903435300, 5137508, 6215554 ####[address] [place] [address] BLOOD BANKOrdered By: David Gasca on 11-24-2022 ABO/Rh Interp Positive Invalid Interpretation Code [facility] BB Subsection ABSC Gel Interp Negative (11/24/22 12:57 AM) Normal [facility] BB Subsection BMPon 11-24-2022 Creatinine [Mass/Vol] 1.1 mg/dL Normal 0.5-1.3 [facility] Comment on above: Performed By: #### 1 3316481, 8456529, 3318006, 29550688, 3820955, 49005448, 7488791, 0018872, 437040057, 7090535, 5148489 ####[facility] [address] [place] [address] Urea nitrogen [Mass/Vol] 13 mg/dL Normal 5-21 [facility] Comment on above: Performed By: #### 1 0818639, 2701075, 1470261, 47629160, 8771343, 56671484, 9017165, 8894722, 384222644, 6057497, 6246368 ####[facility] [address] [place] [address] Urea nitrogen/Creatinine [Mass ratio] 12 No Units Normal 10-20 [facility] Comment on above: Performed By: #### 1 0072390, 0611370, 1814753, 79581894, 8598013, 64432557, 9867271, 1688850, 006314762, 8683780, 1109880 ####[facility] [address] [place] [address] Anion gap [Moles/Vol] 9 mmol/L Normal 6-16 [facility] Comment on above: Performed By: #### 1 0966200, 6444810, 4057426, 57996443, 9703801, 09543303, 0479519, 4754001, 916910374, 7163914, 5440303 ####[facility] [address] [place] [address] Calcium [Mass/Vol] 9.1 mg/dL Normal 8.9-11.1 [facility] Comment on above: Performed By: #### 1 3213869, 5338912, 8343461, 14120050, 5909468, 24258792, 5638807, 3684891, 390195225, 1615444, 3179635 ####[facility] [address] [place] [address] Chloride [Moles/Vol] 111 mmol/L Normal 101-111 [facility] Comment on above: Performed By: #### 1 9944338, 4665264, 5304894, 21625912, 3701233, 01401601, 8798247, 8142057, 503695373, 4382575, 2656086 ####[facility] [address] [place] [address] CO2 [Moles/Vol] 24 mmol/L Normal 21-31 [facility] Comment on above: Performed By: #### 1 9548900, 3022987, 9616004, 20645204, 1430730, 41419880, 6887530, 1317818, 574460439, 1923869, 7221430 ####[facility] [address] [place] [address] Glucose [Mass/Vol] 183 mg/dL Normal 55-199 [facility] Comment on above: Result Comment: If t his glucose result represents a fasting glucose, interpretation should refer to the following reference range: 55-99 mg/dL Performed By: #### 1 5849071, 1973815, 4374877, 28053772, 3074909, 20916829, 4282616, 8205586, 281011239, 6469515, 5654442 ####[facility] [address] [place] [address] Potassium [Moles/Vol] 3.7 mmol/L Normal 3.5-5.3 [facility] Comment on above: Performed By: #### 1 2719633, 8397851, 0170433, 69412171, 9968598, 13242930, 3389676, 7032669, 480848776, 5228455, 8841625 ####[facility] [address] [place] [address] Sodium [Moles/Vol] 140 mmol/L Normal 135-145 [facility] Comment on above: Performed By: #### 1 4616807, 3358834, 7545808, 72303152, 4669595, 99350884, 4459991, 2784061, 113652692, 4179362, 1524234 ####[facility] [address] [place] [address] Blood Bank ID#on 11-24-2022 BBID# [id number] Invalid Interpretation Code [facility] Comment on above: Performed By: #### 1 9695075, 2160865, 40515547, 78102779 ####[address] [place] [address] CBC w/ Auto Diffon Erythrocyte distribution width (RBC) [Ratio] 13.4 % Normal 10.9-14.2 [facility] Comment on above: Performed By: #### 1 7729991, 9670131, 5848995, 91016167, 9900143, 88752203, 4333053, 6537484, 044036385, 6148556, 9291490 ####[address] [place] [address] Hematocrit (Bld) [Volume fraction] 32.8 % Low 34.0-46.0 [facility] Comment on above: Performed By: #### 1 6361558, 0720816, 6478142, 28797849, 0678167, 28241260, 1569208, 1315890, 252017447, 2436953, 8840421 ####[facility] [address] [place] [address] Hemoglobin (Bld) [Mass/Vol] 10.7 g/dL Low 12.0-16.0 [facility] Comment on above: Performed By: #### 1 9867472, 8151277, 3426925, 72636630, 4424728, 83131928, 7061234, 6034066, 764252063, 1209325, 5184914 ####[facility] [address] [place] [address] MCH (RBC) [Entitic mass] 29.2 pg Normal 27.0-34.0 [facility] Comment on above: Performed By: #### 1 9745456, 3800856, 2394154, 52881776, 4009236, 97591595, 0864945, 1196784, 003128634, 0533200, 0616032 ####[facility] [address] [place] [address] MCHC (RBC) [Mass/Vol] 32.7 g/dL Normal 31.4-36.0 [facility] Comment on above: Performed By: #### 1 4769486, 5593604, 8224954, 86624628, 5305591, 01115641, 9107884, 8910135, 471382160, 6365336, 8727901 ####[address] [address] MCV (RBC) [Entitic vol] 89.2 fL Normal 80.0-100.0 [facility] Comment on above: Performed By: #### 1 1888236, 9331081, 0227919, 31337540, 0853675, 36446023, 2354149, 7663846, 366395496, 0097130, 5028108 ####[facility] [address] [place] [address] Platelet mean volume (Bld) [Entitic vol] 8.8 fL Normal 6.4-10.8 [facility] Comment on above: Performed By: #### 1 5966976, 4435407, 2134416, 99037927, 4223090, 74397454, 8714293, 2060350, 238489014, 5226089, 7308156 ####[address] [address] Platelets (Bld) [#/Vol] 139.0 E9/L Low 150.0-500.0 [facility] Comment on above: Performed By: #### 1 3589511, 8066891, 2660162, 08247816, 5487222, 64891489, 5027171, 9730989, 795193179, 3658060, 1331356 ####[facility] [address] [place] [address] RBC (Bld) [#/Vol] 3.7 E12/L Low 4.3-5.9 [facility] Comment on above: Performed By: #### 1 6930643, 9812030, 4562295, 71421520, 8474893, 54914692, 2316748, 1983788, 287503992, 3236485, 0071244 ####[facility] [address] [place] [address] WBC corrected for nucl RBC Auto (Bld) [#/Vol] 6.4 E9/L Normal 4.0-11.0 [facility] Comment on above: Performed By: #### 1 7110338, 4598198, 3246077, 69760438, 9605150, 49914910, 9553634, 6971110, 380433413, 3382636, 8068153 ####[facility] [address] [place] [address] CHEMISTRYOrdered By: SYSTEM SYSTEM on 11-24-2022 Cobalamin [...] 30.2 s Normal 25.1 - 36.5 second(s) [facility] Auto Coag INR Coag (PPP) [Relative time] 1.0 {INR} Invalid Interpretation Code [facility] Auto Coag PT Coag (PPP) [Time] 11.7 s Normal 9.4 - 1 2.5 second(s) [facility] Auto Coag CT Pelvis w/o Contraston CT Pelvis w/o Contrast Normal [facility] Capillary Glucose POCon 10-30 Glucose [Mass/Vol] 119 mg/dL High 55-99 [facility] Comment on above: Result Comment: Fausto CHAUDHARY Performed By: #### 2 89993085 ####[facility] [address] [place] [address] Glucose [Mass/Vol] 115 mg/dL High 55-99 [facility] Comment on above: Result Comment: Fausto CHAUDHARY Performed By: #### 2 18020993 ####[facility] [address] [place] [address] Glucose [Mass/Vol] 114 mg/dL High 55-99 [facility] Comment on above: Result Comment: Fausto CHAUDHARY Performed By: #### 2 49107736 ####[facility] [address] [place] [address] Consent for Treatmenton 10-30 Consent for Treatment [id number]#1.00CD:127 Normal [facility] Consultation Noteon 11-25-19 Consultation Note Normal [facility] Comment on above: Result Comment: Elec tronically Signed By: Joaquim Rice DO.br\Date and Time Signed: 11/24/22 17:19 EDT ED Clinical Summaryon 2022 ED Clinical Summary Normal [facility] ED Note-Physicianon 11-25-19 ED Note-Physician Normal [facility] Comment on above: Result Comment: Elec tronically Signed By: Hari Martinez DO\.br\Date and Time Signed: 11/24/22 03:32 EDT ED Patient Education Noteon 11-24-2022 ED Patient Education Note Normal [facility] ED Patient Summaryon 023 ED Patient Summary Normal [facility] ED Traumaon 11-24-2022 ED Trauma [id number]#1.00CD:12 7 Normal [facility] Ethanolon 11-24-2022 Ethanol [Mass/Vol] mg/dL Normal <=7 [facility] Comment on above: Performed By: #### 2 571566 ####[facility] [address] [place] [address] Free T4on 11-24-2022 Free T4 [Mass/Vol] 1.23 ng/dL Normal 0.58-1.64 [facility] Comment on above: Order Comment: Free T4 added by Discern Rule due to a TSH result of <0.34 or >5.60. Performed By: #### 2 136517, 8943471, 87195759, 93483166, 0491942, 0028282, 8067110, 5987122, 8097332 ####[facility] [address] [place] [address] HEMATOLOGYOrdered By: Kirstin King on 11-24-2022 Reticulocytes/100 RBC (Bld) 0.9 % Normal 0.5 - 1.5 % [facility] Comment on above: Result Comment: This Reticulocyte Count Has Been Corrected For Anemia Hep Func Panelon 11-24-2022 Albumin [Mass/Vol] 3.6 g/dL Normal 3.3-5.0 [facility] Comment on above: Performed By: #### 1 7927908, 7796739, 4778434, 80060119, 7492310, 59010289, 0812824, 2373421, 958691865, 6553529, 2923574 ####[facility] [address] [place] [address] Albumin/Globulin (S) [Mass conc ratio] 1.1 Normal 1.1-2.2 [facility] Comment on above: Performed By: #### 1 6697452, 5628409, 5148587, 16641551, 9812749, 55292352, 3258865, 3655972, 101637170, 2676417, 6101084 ####[facility] [address] [place] [address] ALP [Catalytic activity/Vol] 61 Int._Unit/L Normal 21-98 [facility] Comment on above: Performed By: #### 1 7536514, 4402853, 6119086, 77784846, 3428742, 78221674, 6588228, 4096008, 170388032, 5587380, 6369913 ####[facility] [address] [place] [address] ALT No additional P-5'-P [Catalytic activity/Vol] 15 Int._Unit/L Normal 6-46 [facility] Comment on above: Performed By: #### 1 9540245, 5499223, 4587713, 06326531, 1930375, 05248603, 5612855, 3888217, 564924221, 1254974, 3046347 ####[address] [place] [address] AST [Catalytic activity/Vol] 19 Int._Unit/L Normal 5-43 [facility] Comment on above: Performed By: #### 1 6334307, 9671984, 4584033, 05405101, 0939707, 03286508, 9380137, 5124904, 083961166, 8289638, 3560743 ####[facility] [address] [place] [address] Bilirubin [Mass/Vol] 0.6 mg/dL Normal 0.0-1.1 [facility] Comment on above: Performed By: #### 1 9426956, 1435776, 6863346, 12435100, 5083406, 93528230, 7529550, 4156059, 615968236, 4308452, 4115623 ####[facility] [address] [place] [address] Bilirubin.direct [Mass/Vol] 0.1 mg/dL Normal 0.1-0.4 [facility] Comment on above: Performed By: #### 1 5712409, 4529489, 9620747, 93305305, 7475280, 12787239, 5917140, 6372740, 353364312, 5479608, 3671053 ####[address] [place] [address] Bilirubin.indirect [Mass or moles/Vol] 0.5 mg/dL Normal 0.1-0.9 [facility] Comment on above: Performed By: #### 1 9474665, 7750402, 0974703, 09451585, 5183587, 26021216, 8897122, 5061062, 111897126, 5797347, 0455120 ####[address] [address] Globulin (S) [Mass/Vol] 3.2 g/dL Normal 1.4-4.0 [facility] Comment on above: Performed By: #### 1 2198618, 1855857, 6613662, 59553754, 7503214, 64397174, 9859390, 5146462, 798870977, 2996635, 0485229 ####[address] [address] Protein [Mass/Vol] 6.8 g/dL Normal 6.0-7.8 [facility] Comment on above: Performed By: #### 1 8247930, 2904401, 7126539, 13221257, 1255358, 70110474, 3572722, 9820945, 998885625, 8714105, 4440910 ####[address] [place] [address] Interdisciplinary Note - Hardeep e Manageron 11-24-2022 Interdisciplinary Note - Thoracic Surgeon Normal [facility] Comment on above: Result Comment: Elec tronically Signed By: Kirstin Meyer.deng\Date and Time Signed: 11/24/22 12:23 EDT Ironon 11-24-2022 Iron [Mass/Vol] 29 microgram/dL Low 35-153 [facility] Comment on above: Performed By: #### 2 765085, 0980164, 65556454, 46660913, 5662367, 4729955, 8190731, 0656348, 1585341 ####[facility] [address] [place] [address] LDHon 11-24-2022 LDH [Catalytic activity/Vol] 158 Int._Unit/L Normal 93-218 [facility] Comment on above: Performed By: #### 2 800728, 7230404, 19580481, 64510599, 2247355, 4202992, 8085971, 5438248, 3497968 ####[facility] [address] [place] [address] Lactic Acidon 11-24-2022 Lactate [Mass/Vol] 1.1 mmol/L Normal 0.5-2.2 [facility] Comment on above: Performed By: #### 1 0687835, 2491833, 7787045, 20899102, 2514811, 04405115, 1320143, 2466788, 832878430, 6262208, 8908771 ####[facility] [address] [place] [address] Lipase Levelon 11-24-2022 Lipase [Catalytic activity/Vol] 32 U/L Normal 13-58 [facility] Comment on above: Performed By: #### 1 8417452, 5803828, 3582198, 83042499, 1367286, 05038177, 4123324, 0675157, 822099006, 7073569, 0898360 ####[facility] [address] [place] [address] Monitor Recordon 11-24-2022 Monitor Record [id number]#1.00CD:12 7 Normal [facility] Monitor Record [id number]#1.00CD:12 7 Normal [facility] Monitor Record [id number]#1.00CD:12 7 Normal [facility] Monitor Record [id number]#1.00CD:12 7 Normal [facility] PT & PTTon 11-24-2022 aPTT Coag (PPP) [Time] 30.2 second(s) Normal 25.1-36.5 [facility] Comment on above: Result Comment: Para [...] the same coagulation reagent and instrumentation as [facility]. Currently there are no coagulation studies available worldwide for children to 14 days, and no normal ranges. Heparin therapeutic range (represented by Anti-Factor Xa activity of 0.2 - 0.4 U/mL) corresponds to PTT of 56.6 - 109.0 sec. Performed By: #### 1 1732140, 4431971, 2649782, 34597021, 2010168, 64279575, 3381227, 8305966, 025645899, 9013591, 9880499 ####[facility] [address] [place] [address] INR Coag (PPP) [Relative time] 1.0 {INR} Invalid Interpretation Code [facility] Comment on above: Result Comment: INR results are specifically intended to assess patients stabilized on long-term Anticoagulation therapy suggested INR?s ?Less Intensive Anticoagulation? 2.0 ? 3.0Conventional Range 3.0 ? 4.5 Performed By: #### 1 7494811, 3777055, 4189873, 32060137, 4346825, 65888793, 2885227, 3590973, 363263722, 7092118, 0240777 ####[facility] [address] [place] [address] PT Coag (PPP) [Time] 11.7 second(s) Normal 9.4-12.5 [facility] Comment on above: Result Comment: 15 [...] the same coagulation reagent and instrumentation as [facility]. Currently there are no coagulation studies available worldwide for children to 14 days, and no normal ranges. Performed By: #### 1 1869096, 9686737, 5304963, 54983278, 9682605, 89012917, 5831680, 7775900, 195678473, 5230949, 4852544 ####[facility] [address] [place] [address] Pre-Arrival Noteon Pre-Arrival Note Normal [facility] Progress Note-Physicianon Progress Note-Physician Normal [facility] Comment on above: Result Comment: Elec tronically Signed By: Anu MANZANO\.br\Date and Time Signed: 11/24/22 14:14 EDT\.br\Electronically Co-Signed By: Cordell Grossman DO.br\Date and Time Co-Signed: 11/24/22 15:36 EDT RAD - Preliminary Cat Scan R eporton 11-24-2022 RAD - Preliminary Cat Scan Report [id number]#1.00CD:12 7 Normal [facility] Retic Counton 11-24-2022 Reticulocytes/100 RBC (Bld) 0.9 % Normal 0.5-1.5 [facility] Comment on above: Result Comment: This Reticulocyte Count Has Been Corrected For Anemia Performed By: #### 2 925189, 8417051, 75922681, 02315034, 5808117, 0731081, 4738398, 2408098, 6847995 ####[facility] [address] [place] [address] TIBC Calculatedon 11-24-2022 Iron binding capacity [Mass/Vol] 313 microgram/dL Normal 250-400 [facility] Comment on above: Order Comment: Becka nt receiving patient care, will check back later. [email or web address] 11/24/2022 15:04:45 EDT Performed By: #### 2 909006, 9873011, 40724932, 88062800, 3714016, 3593537, 8198940, 2434658, 7826325 ####[facility] [address] [place] [address] Transferrin [Mass/Vol] 224 mg/dL Normal 200-370 [facility] Comment on above: Order Comment: Becka nt receiving patient care, will check back later. [email or web address] 11/24/2022 15:04:45 EDT Performed By: #### 2 956466, 8865013, 70055459, 77577020, 3172702, 4462547, 6780991, 3165643, 7480974 ####[facility] [address] [place] [address] TSH With T4fr Reflexon 11-24 TSH Qn 0.25 m[IU]/L Low 0.34-5.60 [facility] Comment on above: Performed By: #### 2 937227, 9577190, 07918012, 43511157, 5758879, 6201038, 2436461, 8001659, 4110615 ####[facility] [address] [place] [address] TSH Qn 0.51 m[IU]/L Normal 0.34-5.60 [facility] Comment on above: Performed By: #### 1 9491268, 6460734, 3099871, 19061673, 2837163, 43989264, 5905180, 8308293, 343136170, 6426281, 4399708 ####[facility] [address] [place] [address] Troponinon 11-24-2022 Troponin I.cardiac [Mass/Vol] 3.50 pg/mL Low 10.10-27.10 [facility] Comment on above: Result Comment: The 95% CI (Confidence Interval) PPV (Positive Predictive Value) for myocardial infarction in females is 38 pg/mL, in males 51 pg/mL. The results should be used in conjunction with clinical conditions of myocardial infarction.(Access High Sensitivity Troponin I Instructions For Use, [employer], October 2017) Performed By: #### 1 6202658, 7019355, 3997081, 45517238, 1964464, 46674032, 9096527, 6851914, 300135031, 3426522, 1847654 ####[facility] [address] [place] [address] XR Chest Single Viewon 11-24 XR Chest Single View Normal [facility] XR Hip 1 View Right + Pelvis on 11-24-2022 XR Hip 1 View Right + Pelvis Normal [facility] eGFRon 11-24-2022 GFR/1.73 sq M.predicted among non-blacks MDRD (S/P/Bld) [Vol rate/Area] 55 mL/min/1.73 m2 Low >=59 [facility] Comment on above: Order Comment: Order added by Discern Expert. Result Comment: Computer Repair Instructor marquez kidney disease could be indicated at eGFR's of less than 60 mL/min/1.73m2. Kidney failure is indicated at less than 15 mL/min/1.73m2. Performed By: #### 1 9193170, 8034900, 2599388, 68219115, 1884223, 38515719, 1400996, 3076780, 458356617, 8700720, 6195462 ####[facility] [address] [place] [address] Auto Diffon 10-02-2022 Basophils/100 WBC (Bld) 0.5 % Normal 0.0-2.0 [facility] Comment on above: Order Comment: Order Added by Discern Expert. Performed By: #### 2 563088, 80871846, 6927362, 9108874, 0250284, 9064618 ####[address] [address] Basophils/Leukocytes Auto (Bld) [Pure # fraction] 0.0 E9/L Normal 0.0-0.2 [facility] Comment on above: Order Comment: Order Added by Discern Expert. Performed By: #### 2 985284, 87509812, 4078790, 0420001, 3915677, 1175845 ####[address] [address] Eosinophils/100 WBC (Bld) 1.2 % Normal 0.0-8.0 [facility] Comment on above: Order Comment: Order Added by Discern Expert. Performed By: #### 2 425828, 59791566, 9788253, 6332752, 6753020, 2530521 ####[address] [address] Eosinophils/Leukocytes Auto (Bld) [Pure # fraction] 0.1 E9/L Normal 0.0-0.5 [facility] Comment on above: Order Comment: Order Added by Discern Expert. Performed By: #### 2 412488, 72879263, 3432021, 3183526, 8307300, 7471360 ####[address] [address] Lymphocytes/100 WBC (Bld) 19.9 % Normal 14.0-50.0 [facility] Comment on above: Order Comment: Order Added by Discern Expert. Performed By: #### 2 425792, 86059339, 9245909, 5198554, 6985888, 5837289 ####[address] [address] Lymphocytes/Leukocytes Auto (Bld) [Pure # fraction] 1.5 E9/L Normal 1.0-4.0 [facility] Comment on above: Order Comment: Order Added by Discern Expert. Performed By: #### 2 394872, 79561848, 9022664, 1931870, 1843616, 7538931 ####[address] [address] Monocytes/100 WBC (Bld) 12.7 % Normal 4.0-14.0 [facility] Comment on above: Order Comment: Order Added by Discern Expert. Performed By: #### 2 147878, 72320492, 3735149, 0825488, 6981144, 4656993 ####[address] [address] Monocytes/Leukocytes Auto (Bld) [Pure # fraction] 1.0 E9/L Normal 0.2-1.0 [facility] [facility] Comment on above: Order Comment: Order Added by Discern Expert. Performed By: #### 2 173035, [id number], 1767724, 8262370, 9058570, 7924155 ####[address] [address] Neutrophils/100 WBC (Bld) 65.7 % Normal 36.0-75.0 [facility] Comment on above: Order Comment: Order Added by Discern Expert. Performed By: #### 2 621981, 89832125, 6146157, 1071146, 8861420, 8474241 ####[address] [address] Neutrophils/Leukocytes Auto (Bld) [Pure # fraction] 5.1 E9/L Normal 2.0-7.5 [facility] Comment on above: Order Comment: Order Added by Discern Expert. Performed By: #### 2 042821, 38451115, 4622177, 4220569, 8528646, 1155419 ####[address] [place] [address] BMPon 10-02-2022 Creatinine [Mass/Vol] 1.1 mg/dL Normal 0.5-1.3 [facility] Comment on above: Performed By: #### 2 125655, 94590141, 3932260, 1838552, 6068207, 6013294 ####[facility] [address] [place] [address] Urea nitrogen [Mass/Vol] 16 mg/dL Normal 5-21 [facility] Comment on above: Performed By: #### 2 180022, 34230948, 1722308, 1831601, 5002351, 7841439 ####[facility] [address] [place] [address] Urea nitrogen/Creatinine [Mass ratio] 14 No Units Normal 10-20 [facility] Comment on above: Performed By: #### 2 514844, 89422232, 4565583, 7870038, 8478835, 0406508 ####[facility] [address] [place] [address] Anion gap [Moles/Vol] 15 mmol/L Normal 6-16 [facility] Comment on above: Performed By: #### 2 410730, 48573280, 7807687, 6395323, 6895578, 1873901 ####[facility] [address] [place] [address] Calcium [Mass/Vol] 9.7 mg/dL Normal 8.9-11.1 [facility] Comment on above: Performed By: #### 2 440500, 82758208, 2830828, 9704525, 0011328, 6844584 ####[facility] [address] [place] [address] Chloride [Moles/Vol] 107 mmol/L Normal 101-111 [facility] Comment on above: Performed By: #### 2 015031, 43243808, 8974839, 8502306, 4465016, 4259589 ####[facility] [address] [place] [address] CO2 [Moles/Vol] 19 mmol/L Low 21-31 [facility] Comment on above: Performed By: #### 2 493973, 96580468, 9334137, 6088640, 3987983, 8255200 ####[facility] [address] [place] [address] Glucose [Mass/Vol] 186 mg/dL Normal 55-199 [facility] Comment on above: Result Comment: If t his glucose result represents a fasting glucose, interpretation should refer to the following reference range: 55-99 mg/dL Performed By: #### 2 551189, 52230386, 1651975, 2780560, 4031839, 7488697 ####[facility] [address] [place] [address] Potassium [Moles/Vol] 3.1 mmol/L Low 3.5-5.3 [facility] Comment on above: Performed By: #### 2 065719, 61318959, 0992537, 8662270, 5597670, 7965419 ####[facility] [address] [place] [address] Sodium [Moles/Vol] 138 mmol/L Normal 135-145 [facility] Comment on above: Performed By: #### 2 774219, 71108525, 8185583, 2449463, 8128822, 5268046 ####[facility] [address] [place] [address] CBC w/ Auto Diffon 3 Erythrocyte distribution width (RBC) [Ratio] 13.4 % Normal 10.9-14.2 [facility] Comment on above: Performed By: #### 2 156990, 97409199, 7544383, 7165890, 2207397, 3862163 ####[facility] [address] [place] [address] Hematocrit (Bld) [Volume fraction] 38.1 % Normal 34.0-46.0 [facility] Comment on above: Performed By: #### 2 891861, 91150143, 9617963, 1988699, 2016162, 7690592 ####[address] [address] Hemoglobin (Bld) [Mass/Vol] 12.6 g/dL Normal 12.0-16.0 [facility] Comment on above: Performed By: #### 2 892284, 89157184, 0158023, 7945386, 2306803, 9352275 ####[address] [address] MCH (RBC) [Entitic mass] 29.1 pg Normal 27.0-34.0 [facility] Comment on above: Performed By: #### 2 294385, 48056666, 9593628, 2972691, 1780594, 3351194 ####[address] [address] MCHC (RBC) [Mass/Vol] 33.0 g/dL Normal 31.4-36.0 [facility] Comment on above: Performed By: #### 2 050138, 38790944, 0230463, 7048462, 5970362, 7412957 ####[address] [address] MCV (RBC) [Entitic vol] 88.3 fL Normal 80.0-100.0 [facility] Comment on above: Performed By: #### 2 403441, 96102364, 3571387, 4864347, 2466909, 2790297 ####[address] [address] Platelet mean volume (Bld) [Entitic vol] 8.2 fL Normal 6.4-10.8 [facility] Comment on above: Performed By: #### 2 227165, 75429464, 2284145, 2156082, 6466174, 8348004 ####[address] [address] Platelets (Bld) [#/Vol] 226.0 E9/L Normal 150.0-500.0 [facility] Comment on above: Performed By: #### 2 755887, 00931712, 9938977, 7480412, 1089503, 9646904 ####[facility] [address] [place] [address] RBC (Bld) [#/Vol] 4.3 E12/L Normal 4.3-5.9 [facility] Comment on above: Performed By: #### 2 643396, 86608276, 2010685, 6590424, 3768376, 5056163 ####[facility] [address] [place] [address] WBC corrected for nucl RBC Auto (Bld) [#/Vol] 7.8 E9/L Normal 4.0-11.0 [facility] Comment on above: Performed By: #### 2 556008, 50544584, 9113977, 4676069, 5594234, 9921898 ####[facility] [address] [place] [address] CHEMISTRYOrdered By: SYSTEM SYSTEM on 10-02-2022 Albumin [...] g/dL Normal 6.0 - 7.8 gm/dL [facility] Remisol Sodium [Moles/Vol] 138 mmol/L Normal 135 - 145 mmol/L [facility] Remisol Urea nitrogen [Mass/Vol] 16 mg/dL Normal 5 - 21 mg/dL [facility] Remisol Urea nitrogen/Creatinine [Mass ratio] 14 mg/mg Normal 10 - 20 [facility] Remisol Consent for Treatmenton Consent for Treatment [id number] Normal [facility] ED Clinical Summaryon 2022 ED Clinical Summary Normal [facility] ED Note-Physicianon 10-03-19 ED Note-Physician Normal [facility] Comment on above: Result Comment: Elec tronically Signed By: Clayton DUVALL, Raul M.\.br\Date and Time Signed: 10/02/22 18:44 EDT ED Patient Education Noteon 10-02-2022 ED Patient Education Note Normal [facility] ED Patient Summaryon 023 ED Patient Summary Normal [facility] HEMATOLOGYOrdered By: SYSTEM SYSTEM on 10-02-2022 [...] g/dL Normal 31.4 - 36.0 gm /dL [facility] HemeAutoSS MCV (RBC) [Entitic vol] 88.3 fL Normal 80.0 - 100.[address] [facility] HemeAutoSS Platelet mean volume (Bld) [Entitic vol] 8.2 fL Normal 6.4 - 10.[address] [facility] HemeAutoSS Platelets (Bld) [#/Vol] 226.0 E9/L Normal 150.0 - 500.0 E9/L [facility] HemeAutoSS RBC (Bld) [#/Vol] 4.3 E12/L Normal 4.3 - 5.9 E12/L [facility] HemeAutoSS WBC corrected for nucl RBC Auto (Bld) [#/Vol] 7.8 E9/L Normal 4.0 - 11.0 E9/L [facility] HemeAutoSS Hep Func Panelon 10-02-2022 Albumin [Mass/Vol] 4.1 g/dL Normal 3.3-5.0 [facility] Comment on above: Performed By: #### 2 294349, 88852172, 4268604, 0725531, 7240561, 8532461 ####[facility] [address] [place] [address] Albumin/Globulin (S) [Mass conc ratio] 1.2 Normal 1.1-2.2 [facility] Comment on above: Performed By: #### 2 955600, 80846345, 1926945, 4330193, 7829696, 0966264 ####[facility] [address] [place] [address] ALP [Catalytic activity/Vol] 67 Int._Unit/L Normal 21-98 [facility] Comment on above: Performed By: #### 2 044187, 16400753, 0636211, 1428131, 8214959, 5547758 ####[facility] [address] [place] [address] ALT No additional P-5'-P [Catalytic activity/Vol] 8 Int._Unit/L Normal 6-46 [facility] Comment on above: Performed By: #### 2 742639, 15764565, 1240936, 7218656, 4621351, 5081958 ####[place] [address] AST [Catalytic activity/Vol] 20 Int._Unit/L Normal 5-43 [facility] Comment on above: Performed By: #### 2 754339, 37691987, 4002618, 0141313, 7038838, 0922195 ####[place] [address] Bilirubin [Mass/Vol] 0.7 mg/dL Normal 0.0-1.1 [facility] Comment on above: Performed By: #### 2 707537, 62757948, 6681397, 9246522, 4426787, 0004845 ####[place] [address] Bilirubin.direct [Mass/Vol] 0.1 mg/dL Normal 0.1-0.4 [facility] Comment on above: Performed By: #### 2 432326, 07184581, 4001635, 0332964, 8250749, 8794566 ####[place] [address] Bilirubin.indirect [Mass or moles/Vol] 0.6 mg/dL Normal 0.1-0.9 [facility] Comment on above: Performed By: #### 2 839520, 80283349, 9256337, 0411879, 0799605, 8841467 ####[facility] [address] [place] [address] Globulin (S) [Mass/Vol] 3.5 g/dL Normal 1.4-4.0 [facility] Comment on above: Performed By: #### 2 426972, 54401835, 0524445, 2759436, 2779247, 1524560 ####[address] [address] Protein [Mass/Vol] 7.6 g/dL Normal 6.0-7.8 [facility] Comment on above: Performed By: #### 2 508640, 65044905, 1720208, 2431772, 9283076, 3373945 ####[facility] [address] [place] [address] Lipase Levelon 10-02-2022 Lipase [Catalytic activity/Vol] 41 U/L Normal 13-58 [facility] Comment on above: Performed By: #### 2 608113, 54331310, 2256287, 7583030, 6809464, 6990964 ####[facility] [address] [place] [address] Pre-Arrival Noteon 3 Pre-Arrival Note Normal [facility] eGFRon 10-02-2022 GFR/1.73 sq M.predicted among non-blacks MDRD (S/P/Bld) [Vol rate/Area] 55 mL/min/1.73 m2 Low >=59 [facility] Comment on above: Order Comment: Order added by Discern Expert. Result Comment: Computer Repair Instructor marquez kidney disease could be indicated at eGFR's of less than 60 mL/min/1.73m2. Kidney failure is indicated at less than 15 mL/min/1.73m2. Performed By: #### 2 406443, 22145004, 0546211, 5499398, 4880490, 9939464 ####[facility] [address] [place] [address] BLOOD BANKOrdered By: Jose Martin Brar on 09-04-2022 ABO/Rh Interp Positive Invalid Interpretation Code [facility] BB Subsection ABSC Gel Interp Negative (09/04/22 4:10 PM) Normal [facility] BB Subsection CHEMISTRYOrdered By: Lab ROP User on 09-04-2022 Glucose [Mass/Vol] 241 mg/dL High 55 - 99 mg/dL F[facility] C POC Subsection Comment on above: Result Comment: Fausto rubi RN/ POC Device SN [id number] Invalid Interpretation Code [facility] POC Subsection POC User ID [id number] Invalid Interpretation Code [facility] POC Subsection POC Username ALEKSANDAR KING Invalid Interpretation Code [facility] POC Subsection CHEMISTRYOrdered By: SYSTEM SYSTEM on [...] rate/Area] 70 mL/min/1.73 m2 Normal >=59mL/min/1.[address] [facility] Chem S Globulin (S) [Mass/Vol] 3.3 g/dL [...] rate/Area] 62 mL/min/1.73 m2 Normal >=59mL/min/1.[address] [facility] Chem S Globulin (S) [Mass/Vol] 3.7 g/dL [...] FT C POC Subsection POC Device SN [id number] Invalid Interpretation Code [facility] POC Subsection POC User ID [id number] Invalid Interpretation Code [facility] POC Subsection POC Username STEVE KIMBALL Invalid Interpretation Code [facility] POC Subsection COAGULATIONOrdered By: Vinnie Smith on 08-09-2022 aPTT Coag (PPP) [Time] 31.1 s Normal 25.1 - 36.5 second(s) [facility] Auto Coag INR Coag (PPP) [Relative time] 1.0 {INR} Invalid Interpretation Code [facility] Auto Coag PT Coag (PPP) [Time] 10.9 s Normal 9.4 - 1 2.5 second(s) [facility] Auto Coag HEMATOLOGYOrdered By: SYSTEM SYSTEM on [...] PM) Normal Negative [facility] UA Auto SS [place].plasma/[place] .RBC (Bld) [Mass ratio] 0-3 /HPF Normal [...] [facility] UA Auto SS Urobilinogen Qn (U) 0.6803123 {Papa'U}/dL Normal 0.0 - 1.0 EU/dL [facility] UA Auto SS WBC Auto Ql (U) Negative (08/09/22 2:08 PM) Normal Negative [facility] UA Auto SS WBC LM.HPF (Urine sed) [#/Area] 0-5 /HPF Normal 0-5/HPF [facility] UA Auto SS Progress Noteson 07-18-2022 Fire Manager Authentication Interface Message Text EMERGENCY TRIAGE, TREAT AND TRANSPORT (ET3) DOCUMENTATION OF TELEHEALTH VISIT Date / Time: 07/18/2022 / 1615 Name: Fartun Myers NOTE: CORRECT SPELLING MAY BE ZACH : 1955 SSN: (Not on file) EMS Agency: [facility] [x] Verbal consent obtained [] [...] Completed by: Naseem Hardy MD Normal [facility] CHEMISTRYOrdered By: SYSTEM SYSTEM on 12-14-2022 [...] g/dL Normal 6.0 - 7.8 gm/dL [facility] Remisol Sodium [Moles/Vol] 135 mmol/L Normal 135 [...] PM) Normal Negative [facility] UA Auto SS [place].plasma/[place] .RBC (Bld) [Mass ratio] 0-3 /HPF Normal [...] [facility] UA Auto SS Urobilinogen Qn (U) 0.5695759 {Papa'U}/dL Normal 0.0 - 1.0 EU/dL [facility] [...] [Vol rate/Area] mL/min/1.73 m2 Normal >=59mL/min/1.[address] [facility] Chem S GFR/1.73 sq M.predicted among non-blacks MDRD (S/P/Bld) [Vol rate/Area] mL/min/1.73 m2 Normal >=59mL/min/1.[address] [facility] Chem S Globulin (S) [Mass/Vol] 3.3 g/dL [...] PM) Normal Negative [facility] UA Auto SS [place].plasma/[place] .RBC (Bld) [Mass ratio] 0-3 /HPF Normal [...] Desc Clean Catch (02/08/22 9:05 PM) Normal [facility] UA Auto SS Urobilinogen Qn (U) 0.9324357 {Papa'U}/dL Normal 0.0 - 1.0 EU/dL [facility] UA Auto SS WBC Auto Ql (U) Negative (02/08/22 9:05 PM) Normal Negative [facility] UA Auto SS WBC LM.HPF (Urine sed) [#/Area] 0-5 /HPF Normal 0-5/HPF [facility] UA Auto SS CHEMISTRYOrdered By: SYSTEM SYSTEM on 02-03-2022 Anion gap [Moles/Vol] 8 mmol/L Normal 6 - 16 mEq/L [facility] Remisol Calcium [Mass/Vol] 8.2 mg/dL Low 8.9 - 11.1 mg/dL [facility] Remisol Chloride [Moles/Vol] 111 mmol/L Normal 101 - 111 mmol/ L [facility] Remisol CO2 [Moles/Vol] 22 mmol/L Normal 21 - 31 mmol/L [facility] Remisol Creatinine [Mass/Vol] 1.2 mg/dL Normal 0.5 - 1.3 mg/d L [facility] Remisol GFR/1.73 sq M.predicted among blacks MDRD (S/P/Bld) [Vol rate/Area] 54 mL/min/1.73 m2 Low >=59mL/min/1.[address] [facility] Chem S GFR/1.73 sq M.predicted among non-blacks MDRD (S/P/Bld) [Vol rate/Area] 45 mL/min/1.73 m2 Low >=59mL/min/1.[address] [facility] Chem S Glucose [Mass/Vol] 165 mg/dL Normal 55 - 199 mg/dL [facility] Remisol Potassium [Moles/Vol] 3.2 mmol/L Low 3.5 - 5.3 mmol /L [facility] Remisol Sodium [Moles/Vol] 138 mmol/L Normal 135 - 145 mmol/L [facility] Remisol Urea nitrogen [Mass/Vol] 11 mg/dL Normal 5 - 21 mg/dL [facility] Remisol Urea nitrogen/Creatinine [Mass ratio] 9 mg/mg Low 10 - 20 [facility] Remisol CHEMISTRYOrdered By: Lab ROP User on 02-03-2022 Glucose [Mass/Vol] 186 mg/dL High 55 - 99 mg/dL [facility] C POC Subsection Comment on above: Result Comment: Fausto rubi RN/ POC Device SN [id number] Invalid Interpretation Code [facility] POC Subsection POC User ID [id number] Invalid Interpretation Code [facility] POC Subsection POC [...] Comment: Fausto rubi RN/ POC Device SN [id number] Invalid Interpretation Code [facility] POC Subsection POC User ID [id number] Invalid Interpretation Code [facility] POC Subsection POC Username VIPULKayy JERZY Invalid Interpretation Code [facility] POC Subsection Glucose [Mass/Vol] 176 mg/dL High 55 - 99 mg/dL [facility] C POC Subsection Comment on above: Result Comment: Lucille ronak Meter POC Device SN [id number] Invalid Interpretation Code [facility] POC Subsection POC User ID [id number] Invalid Interpretation Code [facility] POC Subsection POC [...] rate/Area] 55 mL/min/1.73 m2 Low >=59mL/min/1.[address] [facility] Chem S Glucose [Mass/Vol] 159 mg/dL Normal [...] AM) Normal Negative [facility] UA Auto SS [place].plasma/[place] .RBC (Bld) [Mass ratio] 0-3 /HPF Normal 0-3/HPF [facility] UA Auto SS Nitrite Ql (U) Negative (02/02/22 7:06 AM) Normal Negative [facility] UA Auto SS pH (U) 6.5 *NA* (02/02/22 7:06 AM) Invalid Interpretation Code 5.0 - 9.[address] [facility] UA Auto SS Protein (U) [Mass/Vol] Negative (02/02/22 7:06 AM) Normal Negative [facility] UA Auto SS Specific gravity (U) [Rel density] 1.010 *NA* (02/02/22 7:06 AM) Invalid Interpretation Code 1.005 - 1.[address] [facility] UA Auto SS UA Spec Desc Clean Catch (02/02/22 7:06 AM) Normal [facility] UA Auto SS Urobilinogen Qn (U) 0.9619405 {Papa'U}/dL Normal 0.0 - 1.0 EU/dL [facility] UA Auto SS WBC Auto Ql (U) Trace *ABN* (02/02/22 7:06 AM) Invalid Interpretation Code Negative [facility] UA Auto SS WBC LM.HPF (Urine sed) [#/Area] 0-5 /HPF Normal 0-5/HPF [facility] UA Auto SS CHEMISTRYOrdered By: Lab ROP User on 02-01-2022 Glucose [Mass/Vol] 261 mg/dL High 55 - 99 mg/dL [facility] POC Subsection Comment on above: Result Comment: Fausto rubi RN/ POC Device SN [id number] Invalid Interpretation Code [facility] POC Subsection POC User ID [id number] Invalid Interpretation Code [facility] POC Subsection POC Username HUMA [email or web address] Invalid Interpretation Code [facility] POC Subsection CHEMISTRYOrdered By: SYSTEM SYSTEM on [...] rate/Area] 42 mL/min/1.73 m2 Low >=59mL/min/1.[address] [facility] Chem S GFR/1.73 sq M.predicted among non-blacks MDRD (S/P/Bld) [Vol rate/Area] 35 mL/min/1.73 m2 Low >=59mL/min/1.[address] [facility] Chem S Glucose [Mass/Vol] 128 mg/dL Normal 55 - 199 mg/dL [facility] Remisol Magnesium [Mass/Vol] 2.0 mg/dL Normal 1.3 - 2.4 mg/dL [facility] Remisol Sodium [Moles/Vol] 136 mmol/L Normal 135 - 145 mmol/L [facility] Remisol Urea nitrogen [Mass/Vol] 31 mg/dL High 5 - 21 mg/dL [facility] Remisol Urea nitrogen/Creatinine [Mass ratio] 21 mg/mg High 10 - [address] [facility] Remisol CHEMISTRYOrdered By: Sylvia Smith on 02-01-2022 Creatinine [Mass/Vol] 1.5 mg/dL High 0.5 - 1.3 mg/d L [facility] Remisol Potassium [Moles/Vol] 3.3 mmol/L Low 3.5 - 5.3 mmol /L [facility] Remisol HEMATOLOGYOrdered By: SYSTEM SYSTEM on 02-01-2022 [...] rate/Area] 27 mL/min/1.73 m2 Low >=59mL/min/1.[address] [facility] Chem S GFR/1.73 sq M.predicted among non-blacks MDRD (S/P/Bld) [Vol rate/Area] 22 mL/min/1.73 m2 Low >=59mL/min/1.[address] [facility] Chem S Globulin (S) [Mass/Vol] 3.6 g/dL [...] Comment: Fausto rubi RN/ POC Device SN [id number] Invalid Interpretation Code [facility] POC Subsection POC User ID [id number] Invalid Interpretation Code [facility] POC Subsection POC Username GAGANDEEP HER Invalid Interpretation Code [facility] POC Subsection Glucose [Mass/Vol] 265 mg/dL High 55 - 99 mg/dL [facility] C POC Subsection Comment on above: Result Comment: Fausto rubi RN/ POC Device SN [id number] Invalid Interpretation Code [facility] POC Subsection POC User ID [id number] Invalid Interpretation Code [facility] POC Subsection POC Username GAGANDEEP HER Invalid Interpretation Code [facility] POC Subsection CHEMISTRYOrdered By: SYSTEM SYSTEM on 01-30-2022 Anion gap [Moles/Vol] 12 mmol/L Normal 6 - 16 mEq/L F [facility] Remisol Calcium [Mass/Vol] 8.8 mg/dL Low 8.9 - 11.1 mg/dL [facility] Remisol Chloride [Moles/Vol] 106 mmol/L Normal 101 - 111 mmol/ L [facility] Remisol CO2 [Moles/Vol] 24 mmol/L Normal 21 - 31 mmol/L [facility] Remisol Creatinine [Mass/Vol] 1.1 mg/dL Normal 0.5 - 1.3 mg/d L [facility] Remisol GFR/1.73 sq M.predicted among blacks MDRD (S/P/Bld) [Vol rate/Area] 60 mL/min/1.73 m2 Normal >=59mL/min/1.[address] [facility] Chem S GFR/1.73 sq M.predicted among non-blacks MDRD (S/P/Bld) [Vol rate/Area] 50 mL/min/1.73 m2 Low >=59mL/min/1.[address] [facility] Chem S Glucose [Mass/Vol] 255 mg/dL High 55 - 199 mg/dL [facility] Remisol Potassium [Moles/Vol] 3.5 mmol/L Normal 3.5 - 5.3 mmol /L [facility] Remisol Sodium [Moles/Vol] 138 mmol/L Normal 135 - 145 mmol/L [facility] Remisol Urea nitrogen [Mass/Vol] 19 mg/dL Normal 5 - 21 mg/dL [facility] Remisol Urea nitrogen/Creatinine [Mass ratio] 17 mg/mg Normal 10 - [address] [facility] Remisol CHEMISTRYOrdered By: SYSTEM SYSTEM on 01-29-2022 [...] rate/Area] 60 mL/min/1.73 m2 Normal >=59mL/min/1.[address] [facility] Chem S GFR/1.73 sq M.predicted among non-blacks MDRD (S/P/Bld) [Vol rate/Area] 50 mL/min/1.73 m2 Low >=59mL/min/1.[address] [facility] Chem S Glucose [Mass/Vol] 245 mg/dL High [...] mmol/L Normal 6 - 16 mEq/L [facility] Remisol Calcium [Mass/Vol] 9.0 mg/dL Normal 8.9 - 11.1 mg/dL [facility] Remisol Chloride [Moles/Vol] 107 mmol/L Normal 101 - 111 mmol/ L [facility] Remisol CO2 [Moles/Vol] 23 mmol/L Normal 21 - 31 mmol/L [facility] Remisol Creatinine [Mass/Vol] 1.2 mg/dL Normal 0.5 - 1.3 mg/d L [facility] Remisol GFR/1.73 sq M.predicted among blacks MDRD (S/P/Bld) [Vol rate/Area] 54 mL/min/1.73 m2 Low >=59mL/min/1.[address] [facility] Chem S GFR/1.73 sq M.predicted among non-blacks MDRD (S/P/Bld) [Vol rate/Area] 45 mL/min/1.73 m2 Low >=59mL/min/1.[address] [facility] Chem S Glucose [Mass/Vol] 151 mg/dL Normal 55 - 199 mg/dL [facility] Remisol Potassium [Moles/Vol] 3.7 mmol/L Normal [...] Comment: Fausto rubi RN/ POC Device SN [id number] Invalid Interpretation Code [facility] POC Subsection POC User ID [id number] Invalid Interpretation Code [facility] POC Subsection POC Username ESTEFANY GUZMAN Invalid Interpretation Code [facility] POC Subsection CHEMISTRYOrdered By: SYSTEM SYSTEM on 01-28-2022 Albumin [Mass/Vol] 3.5 g/dL Normal 3.3 - 5.0 gm/dL [facility] Remisol Albumin/Globulin [Mass ratio] 1.0 {ratio} Low [...] [facility] Remisol FT Blood GasesOrdered By: Nakia Aguyao on 01-28-2022 Allens Test Not Applicable (01/28/22 [...] PM) Normal Negative [facility] UA Auto SS [place].plasma/[place] .RBC (Bld) [Mass ratio] 0-3 /HPF Normal [...] [facility] UA Auto SS Urobilinogen Qn (U) 0.8064213 {Papa'U}/dL Normal 0.0 - 1.0 EU/dL [facility] [...] Result Comment: Fausto rubi RN/ POC Device [id number] Invalid Interpretation Code FT POC Subsection POC User ID [id number] Invalid Interpretation Code [facility] [place] POC Subsection POC Username [email or web address] Invalid Interpretation Code [facility] [place] POC Subsection CHEMISTRYOrdered By: SYSTEM SYSTEM on [...] PM) Normal Negative [facility] UA Auto SS [place].plasma/[place] .RBC (Bld) [Mass ratio] 0-3 /HPF Normal [...] [facility] UA Auto SS Urobilinogen Qn (U) 0.4838637 {Papa'U}/dL Normal 0.0 - 1.0 EU/dL [facility] [...] Comment: Lucille ronak Meter POC Device SN [id number] Invalid Interpretation Code [facility] POC Subsection POC User ID [id number] Invalid Interpretation Code FT POC Subsection POC Username BHARGAV CANO Invalid Interpretation Code [facility] POC Subsection Glucose [Mass/Vol] 126 mg/dL High 55 - 99 mg/dL FTM C POC Subsection POC Device SN [id number] Invalid Interpretation Code [facility] POC Subsection POC User ID [id number] Invalid Interpretation Code [facility] POC Subsection POC Username AGUSTIN GARSIA Invalid Interpretation Code [facility] POC Subsection CHEMISTRYOrdered By: SYSTEM SYSTEM on [...] PM) Normal Negative [facility] UA Auto SS [place].plasma/[place] .RBC (Bld) [Mass ratio] 0-3 /HPF Normal [...] [facility] UA Auto SS Urobilinogen Qn (U) [id number] {Papa'U}/dL Normal 0.0 - 1.0 EU/dL [facility] UA Auto SS WBC Auto Ql (U) Negative (11/17/21 7:06 PM) Normal Negative [facility] UA Auto SS WBC LM.HPF (Urine sed) [#/Area] 0-5 /HPF Normal 0-5/HPF [facility] UA Auto SS Vital Signs Date Time Vital Sign Value Performing Clinician Facility 09-18-2023 14:35-0400 Blood Pressure Location Marcelo Link [facility] 09-18-2023 14:35-0400 Diastolic blood pressure 76 mm[Hg] Marcelo Link [facility] 09-18-2023 14:35-0400 Heart rate 64 /min Marcelo Link [facility] 09-18-2023 14:35-0400 SaO2% (BldA) [Mass fraction] 98 % Marcelo Link [facility] 09-18-2023 14:35-0400 Systolic blood pressure 124 mm[Hg] Marcelo Link [facility] 08-07-2023 11:41-0400 Blood Pressure Location Marcelo Link [facility] 08-07-2023 11:41-0400 Diastolic blood pressure 62 mm[Hg] Marcelo Link [facility] 08-07-2023 11:41-0400 Heart rate 69 /min Marcelo Link [facility] 08-07-2023 11:41-0400 SaO2% (BldA) [Mass fraction] 97 % Marcelo Link [facility] 08-07-2023 11:41-0400 Systolic blood pressure 118 mm[Hg] Marcelo Link [facility] 07-01-2023 14:04-0400 Blood Pressure Location Marcelo Link [facility] 07-01-2023 14:04-0400 Diastolic blood pressure 78 mm[Hg] Marcelo Link [facility] 07-01-2023 14:04-0400 Heart rate 78 /min Marcelo Link [facility] 07-01-2023 14:04-0400 SaO2% (BldA) [Mass fraction] 97 % Marcelo Link [facility] 07-01-2023 14:04-0400 Systolic blood pressure 136 mm[Hg] Marcelo Call [facility] [place] 03-03-2023 13:45-0500 Body height 162.56 cm Ashish Chester Other [employer] Other 03-03-2023 13:45-0500 Body temperature 97.5 [degF] Ashish Chester Other [employer] Other 03-03-2023 13:45-0500 Diastolic blood pressure 55 mm[Hg] Ashish Chester Other [employer] Other 03-03-2023 13:45-0500 Systolic blood pressure 112 mm[Hg] Ashish Chester Other [employer] Other 02-13-2023 09:43-0500 Diastolic blood pressure 58 mm[Hg] Joaquim Rice [facility] 02-13-2023 09:43-0500 Heart rate 60 /min Joaquim Rice [facility] 02-13-2023 09:43-0500 Respiratory rate 16 /min Joaquim Sunbeam [facility] 02-13-2023 09:43-0500 SaO2% (BldA) [Mass fraction] 99 % Joaquim Sunbeam [facility] 02-13-2023 09:43-0500 Systolic blood pressure 124 mm[Hg] Joaquim Rice [facility] 02-13-2023 08:39-0500 Heart rate 57 /min Joaquim Sunbeam [facility] 02-13-2023 08:39-0500 SaO2% (BldA) [Mass fraction] 98 % Joaquim Sunbeam [facility] 02-13-2023 08:37-0500 Respiratory rate 18 /min Joaquim Rice [facility] 02-13-2023 08:37-0500 Diastolic blood pressure 73 mm[Hg] Joaquim Rice [facility] 02-13-2023 08:37-0500 Mean blood pressure 94 mm[Hg] Joaquim Rice [facility] 02-13-2023 08:37-0500 Systolic blood pressure 136 mm[Hg] Joaquim Rice [facility] 02-13-2023 08:30-0500 Blood Pressure Location Joaquim Rice [facility] 02-13-2023 08:30-0500 Body temperature 98.06 [degF] Joaquim Rice [facility] 02-13-2023 08:30-0500 Diastolic blood pressure 53 mm[Hg] Joaquim Rice [facility] 02-13-2023 08:30-0500 Heart rate 61 /min Joaquim Rice [facility] 02-13-2023 08:30-0500 Mean blood pressure 78 mm[Hg] Joaquim Rice [facility] 02-13-2023 08:30-0500 Respiratory rate 11 /min Joaquim Rice [facility] 02-13-2023 08:30-0500 SaO2% (BldA) [Mass fraction] 97 % Joaquim Rice [facility] 02-13-2023 08:30-0500 Systolic blood pressure 129 mm[Hg] Joaquim Rice [facility] 02-13-2023 08:20-0500 Blood Pressure Location Joaquim Rice [facility] 02-13-2023 08:20-0500 Mean blood pressure 76 mm[Hg] Joaquim Rice [facility] 02-13-2023 08:20-0500 Respiratory rate 9 /min Joaquim Rice [facility] 02-13-2023 08:15-0500 Blood Pressure Location Joaquim Rice [facility] 02-13-2023 08:15-0500 Mean blood pressure 76 mm[Hg] Joaquim Rice [facility] 02-13-2023 08:01-0500 Body temperature 97.16 [degF] Joaquim Rice [facility] 02-13-2023 07:55-0500 Respiratory rate 12 /min Joaquim Rice [facility] 02-13-2023 06:10-0500 Mean blood pressure 85 mm[Hg] Joaquim Rice [facility] 02-13-2023 06:09-0500 BP/Pulse Patient Position Joaquim Rice [facility] 02-13-2023 06:09-0500 Mean blood pressure 87 mm[Hg] Joaquim Rice [employer] [facility] 02-13-2023 06:09-0500 Heart rate 60 /min Joaquim Rice [facility] 02-13-2023 06:08-0500 Body temperature 97.7 [degF] Joaquim Sunbeam [facility] 02-03-2023 14:15-0500 Body height 162.56 cm Ashish Chester Other [employer] Other 02-03-2023 14:15-0500 Body temperature 97.4 [degF] Ashish Chester Other [employer] Other 02-03-2023 14:15-0500 Diastolic blood pressure 58 mm[Hg] Ashish Chester Other [employer] [facility] [employer] Other 02-03-2023 14:15-0500 Systolic blood pressure 103 mm[Hg] Ashish Chester Other [employer] Other 12-24-2022 18:02-0400 Hourly Rounding Joaquim Rice [facility] 12-24-2022 18:02-0400 Promise to Return Joaquim Rice [facility] 12-24-2022 18:00-0400 Blood Pressure Location Joaquim Rice [facility] 12-24-2022 18:00-0400 Body temperature 98.06 [degF] Joaquim Rice [facility] 12-24-2022 18:00-0400 Diastolic blood pressure 69 mm[Hg] Joaquim Rice [facility] 12-24-2022 18:00-0400 Heart rate 95 /min Joaquim Rice [facility] 12-24-2022 18:00-0400 Mean blood pressure 82 mm[Hg] Joaquim Rice [facility] 12-24-2022 18:00-0400 Respiratory rate 18 /min Joaquim Rice [facility] 12-24-2022 18:00-0400 SaO2% (BldA) [Mass fraction] 97 % Joaquim Rice [facility] 12-24-2022 18:00-0400 Systolic blood pressure 108 mm[Hg] Joaquim Rice [facility] 12-24-2022 17:41-0400 Hourly Rounding Joaquim Rice [facility] 12-24-2022 17:41-0400 Promise to Return Joaquim Rice [facility] 12-24-2022 16:00-0400 Hourly Rounding Joaquim Rice [facility] 12-24-2022 16:00-0400 Promise to Return Joaquim Rice [facility] 12-24-2022 15:43-0400 Heart rate 67 /min Joaquim Rice [facility] 12-24-2022 15:43-0400 SaO2% (BldA) [Mass fraction] 96 % Joaquim Rice [facility] 12-24-2022 15:42-0400 Body temperature 97.7 [degF] Joaquim Rice [facility] 12-24-2022 15:42-0400 Diastolic blood pressure 67 mm[Hg] Joaquim Rice [facility] 12-24-2022 15:42-0400 Mean blood pressure 87 mm[Hg] Joaquim Rice [facility] 12-24-2022 15:42-0400 Systolic blood pressure 127 mm[Hg] Joaquim Rice [facility] 12-24-2022 13:06-0400 gluc 194 mg/dL Joaquim Rice [facility] 12-24-2022 11:37-0400 Heart rate 67 /min Joaquim Rice [facility] 12-24-2022 11:37-0400 SaO2% (BldA) [Mass fraction] 95 % Joaquim Rcie [facility] 12-24-2022 11:37-0400 Diastolic blood pressure 49 mm[Hg] Joaquim Rice [facility] 12-24-2022 11:37-0400 Mean blood pressure 67 mm[Hg] Joaquim Rice [facility] 12-24-2022 11:37-0400 Systolic blood pressure 103 mm[Hg] Joaquim Rice [facility] 12-24-2022 11:37-0400 Body temperature 97.7 [degF] Joaquim Rice [facility] 12-24-2022 07:39-0400 Mean blood pressure 76 mm[Hg] Joaquim Rice [facility] 12-24-2022 07:37-0400 Body temperature 97.7 [degF] Joaquim Rice [facility] 12-24-2022 02:43-0400 Respiratory rate 16 /min Joaquim Rice [facility] 12-24-2022 00:01-0400 Body temperature 99.68 [degF] Joaquim Rice [facility] 12-24-2022 00:01-0400 Respiratory rate 16 /min Joaquim Rice [facility] 12-23-2022 12:00-0400 Blood Pressure Location Joaquim Rice [facility] 12-23-2022 12:00-0400 Body temperature 97.34 [degF] Joaquim Rice [facility] 12-23-2022 12:00-0400 Heart rate 62 /min Joaquim Rice [facility] 12-22-2022 23:45-0400 gluc 123 mg/dL Joaquim Rice [facility] 12-22-2022 20:10-0400 Blood Pressure Location Joaquim Rice [facility] 09-24-2023 20:10-0400 Mean blood pressure 88 mm[Hg] Joaquim Brown [facility] 12-22-2022 12:37-0400 gluc 126 mg/dL Joaquim Brown [facility] 12-21-2022 20:00-0400 Mean blood pressure 67 mm[Hg] Joaquim Brown [facility] 12-20-2022 19:15-0400 Respiratory rate 16 /min Joaquim Brown [facility] 12-20-2022 19:00-0400 Respiratory rate 18 /min Joaquim Brown [facility] 12-20-2022 18:45-0400 Respiratory rate 11 /min Joaquim Brown [facility] 12-20-2022 16:21-0400 Heart rate 75 /min Joaquim Brown [facility] 12-19-2022 17:25-0400 Heart rate 66 /min Joaquim Brown [facility] 12-19-2022 16:52-0400 Diastolic blood pressure 46 mm[Hg] Joaquim Brown [facility] 12-19-2022 16:52-0400 Systolic blood pressure 105 mm[Hg] Joaquim Brown [facility] 11-29-2022 12:19-0400 Hourly Rounding Reymundoelver ARGUETASLIN [facility] 11-29-2022 12:19-0400 Promise to Return Reymundo JULIAN [facility] 11-29-2022 11:43-0400 Hourly Rounding Reymundo JULIAN [facility] 11-29-2022 11:43-0400 Promise to Return Reymundo JULIAN [facility] 11-29-2022 11:25-0400 Heart rate 79 /min Reymundo JULIAN [facility] 11-29-2022 11:25-0400 SaO2% (BldA) [Mass fraction] 92 % Reymundo JULIAN [facility] 11-29-2022 11:22-0400 Diastolic blood pressure 73 mm[Hg] Reymundo JULIAN [facility] 11-29-2022 11:22-0400 Mean blood pressure 97 mm[Hg] Reymundo JULIAN [facility] 11-29-2022 11:22-0400 Systolic blood pressure 143 mm[Hg] Reymundo JULIAN [facility] 11-29-2022 11:22-0400 Body temperature 98.06 [degF] Reymundo JULIAN [facility] 11-29-2022 10:33-0400 Hourly Rounding Reymundo JULIAN [facility] 11-29-2022 10:33-0400 Promise to Return Reymundo JULIAN [facility] 11-29-2022 09:40-0400 Diastolic blood pressure 75 mm[Hg] Reymundo JULIAN [facility] 11-29-2022 09:40-0400 Systolic blood pressure 160 mm[Hg] Reymundo JULIAN [facility] 11-29-2022 08:17-0400 Heart rate 83 /min Reymundo JULIAN [facility] 11-29-2022 08:17-0400 SaO2% (BldA) [Mass fraction] 93 % Reymundo JULIAN [facility] 11-29-2022 08:17-0400 Diastolic blood pressure 75 mm[Hg] Reymundo ARGUETASLIN [facility] 11-29-2022 08:17-0400 Mean blood pressure 104 mm[Hg] Reymundo ARGUETASLIN [facility] 11-29-2022 08:17-0400 Systolic blood pressure 160 mm[Hg] Reymundoelver ARGUETASLIN [facility] 11-29-2022 08:17-0400 Body temperature 97.88 [degF] Reymundoelver ARGUETASLIN [facility] 11-28-2022 23:45-0400 Blood Pressure Location Reymundo ARGUETASLIN [facility] 11-28-2022 23:45-0400 Body temperature 97.7 [degF] Reymundoelver ARGUETASLIN [facility] 11-28-2022 23:45-0400 Heart rate 68 /min Reymundoelver ARGUETASLIN [facility] 11-28-2022 23:45-0400 SaO2% (BldA) [Mass fraction] 95 % Reymundo ARGUETASLIN [facility] 11-28-2022 15:54-0400 Mean blood pressure 93 mm[Hg] Reymundo ARGUETASLIN [facility] 11-28-2022 15:54-0400 Body temperature 100.22 [degF] Reymundoelver ARGUETASLIN [facility] 11-28-2022 08:40-0400 Blood Pressure Location Reymundoelver ARGUETASLIN [facility] 11-28-2022 08:40-0400 Body temperature 97.88 [degF] Reymundoelver ARGUETASLIN [facility] 11-28-2022 08:40-0400 Mean blood pressure 86 mm[Hg] Reymundo JULIAN [facility] 11-28-2022 08:40-0400 Respiratory rate 16 /min Reymundo JULIAN [facility] 11-28-2022 00:15-0400 Blood Pressure Location Reymundo JULIAN [facility] 11-28-2022 00:15-0400 Respiratory rate 16 /min Reymundo JULIAN [facility] 11-27-2022 16:43-0400 Mean blood pressure 90 mm[Hg] Reymundo JULIAN [facility] 11-27-2022 11:40-0400 Mean blood pressure 79 mm[Hg] Reymundo JULIAN [facility] 11-27-2022 01:48-0400 Heart rate 18 /min Reymundo JULIAN [facility] 11-26-2022 16:27-0400 Heart rate 78 /min Reymundo JULIAN [facility] 11-26-2022 16:27-0400 Respiratory rate 18 /min Reymundo JULIAN [facility] 11-26-2022 11:43-0400 Heart rate 80 /min Reymundo JULIAN [facility] 11-25-2022 17:25-0400 Respiratory rate 13 /min Reymundo JULIAN [facility] 11-25-2022 17:00-0400 Respiratory rate 11 /min Reymundo JULIAN [facility] 11-25-2022 05:43-0400 gluc 98 mg/dL Reymundo JULIAN [facility] 11-24-2022 19:24-0400 gluc 115 mg/dL Reymundo JORDAN [facility] 11-24-2022 19:00-0400 Heart rate 70 /min Reymundo JORDAN [facility] 11-24-2022 12:25-0400 gluc 149 mg/dL Reymundo JORDAN [facility] 10-02-2022 15:23-0400 Body temperature 97.88 [degF] Raul Arnold [facility] 10-02-2022 15:23-0400 Diastolic blood pressure 80 mm[Hg] Raul Arnold [facility] 10-02-2022 15:23-0400 Heart rate 79 /min Raul Arnold [facility] 10-02-2022 15:23-0400 Respiratory rate 16 /min Raul Aronld [facility] 10-02-2022 15:23-0400 SaO2% (BldA) [Mass fraction] 100 % Raul Arnold [facility] 10-02-2022 15:23-0400 Systolic blood pressure 133 mm[Hg] Raul Clayton [facility] 09-04-2022 21:30-0400 Diastolic blood pressure 72 mm[Hg] Hari Michelle [facility] 09-04-2022 21:30-0400 Heart rate 60 /min Hari Michelle [facility] 09-04-2022 21:30-0400 Mean blood pressure 100 mm[Hg] Hari Michelle [facility] 09-04-2022 21:30-0400 Respiratory rate 15 /min Hari Michelle [facility] 09-04-2022 21:30-0400 SaO2% (BldA) [Mass fraction] 97 % Hari Michelle [facility] 09-04-2022 21:30-0400 Systolic blood pressure 155 mm[Hg] Hari Michelle [facility] 09-04-2022 20:40-0400 Body temperature 97.52 [degF] Hari Michelle [facility] 09-04-2022 20:40-0400 Diastolic blood pressure 80 mm[Hg] Hari Michelle [facility] 09-04-2022 20:40-0400 Heart rate 67 /min Hari Michelle [facility] 09-04-2022 20:40-0400 Respiratory rate 17 /min Hari Michelle [facility] 09-04-2022 20:40-0400 SaO2% (BldA) [Mass fraction] 95 % Hari Michelle [facility] 09-04-2022 20:40-0400 Systolic blood pressure 176 mm[Hg] Hari Michelle [facility] 09-04-2022 20:25-0400 Body temperature 97.52 [degF] Hari Michelle [facility] 09-04-2022 20:25-0400 Diastolic blood pressure 75 mm[Hg] Marcelo Link [facility] 09-04-2022 20:25-0400 Heart rate 62 /min Hari Michelle [facility] 06-07-2023 20:25-0400 Respiratory rate 18 /min Hari Michelle [facility] 09-04-2022 20:25-0400 SaO2% (BldA) [Mass fraction] 99 % Hari Michelle [facility] 09-04-2022 20:25-0400 Systolic blood pressure 188 mm[Hg] Hari Michelle [facility] 09-04-2022 19:04-0400 Body temperature 97.88 [degF] Marcelo Link [facility] 09-04-2022 19:04-0400 Diastolic blood pressure 58 mm[Hg] Marcelo Link [facility] 09-04-2022 19:04-0400 Heart rate 63 /min Marcelo Link [facility] 09-04-2022 19:04-0400 Respiratory rate 15 /min Marcelo Link [facility] 09-04-2022 19:04-0400 SaO2% (BldA) [Mass fraction] 98 % Marcelo Link [facility] 09-04-2022 19:04-0400 Systolic blood pressure 139 mm[Hg] Amrcelo Link [facility] 09-04-2022 18:32-0400 Body temperature 98.06 [degF] Marcelo Link [facility] 09-04-2022 18:32-0400 Diastolic blood pressure 64 mm[Hg] Marcelo Link [facility] 09-04-2022 18:32-0400 Heart rate 62 /min Marcelo Link [facility] 09-04-2022 18:32-0400 Mean blood pressure 92 mm[Hg] Marcelo Link [facility] 09-04-2022 18:32-0400 Respiratory rate 16 /min Marcelo Link [facility] 09-04-2022 18:32-0400 SaO2% (BldA) [Mass fraction] 97 % Marcelo Link [facility] 09-04-2022 18:32-0400 Systolic blood pressure 149 mm[Hg] Marcelo Link [facility] 09-04-2022 17:15-0400 Body temperature 97.7 [degF] Marcelo Link [facility] 09-04-2022 17:00-0400 Heart rate 64 /min Marcelo Link [facility] 09-04-2022 17:00-0400 Mean blood pressure 96 mm[Hg] Marcelo Link [facility] 09-04-2022 17:00-0400 Systolic blood pressure 137 mm[Hg] Marcelo Link [facility] 09-04-2022 15:10-0400 gluc 241 mg/dL Marcelo Link [facility] 09-04-2022 15:10-0400 gluc Marcelo Link [facility] 09-04-2022 15:00-0400 Hourly Rounding Marcelo Link [facility] 09-04-2022 15:00-0400 Promise to Return Marcelo Link [facility] 08-09-2022 14:34-0400 Body temperature 97.7 [degF] Raul Arnold [facility] 08-09-2022 14:29-0400 Diastolic blood pressure 64 mm[Hg] Raul Arnold [facility] 08-09-2022 14:29-0400 Heart rate 60 /min Raul Clayton [facility] 08-09-2022 14:29-0400 Mean blood pressure 88 mm[Hg] Raul Clayton [facility] 08-09-2022 14:29-0400 Respiratory rate 14 /min Raul Clayton [facility] 08-09-2022 14:29-0400 SaO2% (BldA) [Mass fraction] 95 % Raul Clayton [facility] 08-09-2022 14:29-0400 Systolic blood pressure 136 mm[Hg] Raul Clayton [facility] 08-09-2022 13:45-0400 Diastolic blood pressure 59 mm[Hg] Raul Clayton [facility] 08-09-2022 13:45-0400 Heart rate 62 /min Raul Clayton [facility] 08-09-2022 13:45-0400 Mean blood pressure 83 mm[Hg] Raul Clayton [facility] 08-09-2022 13:45-0400 Respiratory rate 10 /min Raul Clayton [facility] 08-09-2022 13:45-0400 SaO2% (BldA) [Mass fraction] 96 % Raul Clayton [facility] 08-09-2022 13:45-0400 Systolic blood pressure 130 mm[Hg] Raul Clayton [facility] 08-09-2022 13:32-0400 Body temperature 97.52 [degF] Raul Clayton [facility] 08-09-2022 13:32-0400 Diastolic blood pressure 57 mm[Hg] Raul Clayton [facility] 08-09-2022 13:32-0400 Heart rate 66 /min Raul Arnold [facility] 08-09-2022 13:32-0400 Respiratory rate 18 /min Raul Arnold [facility] 08-09-2022 13:32-0400 SaO2% (BldA) [Mass fraction] 95 % Raul Arnold [facility] 08-09-2022 13:32-0400 Systolic blood pressure 130 mm[Hg] Raulvesna Arnold [facility] 08-09-2022 12:19-0400 gluc 212 mg/dL Raulvesna Arnold [facility] 08-09-2022 12:19-0400 gluc Raul Clayton [facility] 08-09-2022 12:17-0400 Body temperature 97.88 [degF] Raul Arnold [facility] 08-09-2022 12:17-0400 Heart rate 74 /min Raul Clayton [facility] 08-09-2022 12:17-0400 Respiratory rate 16 /min Raulvesna Arnold [facility] 07-18-2022 22:45-0400 Body temperature 98.06 [degF] Kaylinn Dokken [facility] 07-18-2022 22:45-0400 Diastolic blood pressure 56 mm[Hg] Kaylinn Dokken [facility] 07-18-2022 22:45-0400 Heart rate 80 /min Kaylinn Dokken [facility] 07-18-2022 22:45-0400 Respiratory rate 18 /min Kaylinn Dokken [facility] 07-18-2022 22:45-0400 SaO2% (BldA) [Mass fraction] 97 % Jairinn Dokken [facility] 07-18-2022 22:45-0400 Systolic blood pressure 130 mm[Hg] Humaylinn Dokken [facility] 07-18-2022 22:30-0400 Body temperature 98.06 [degF] Yulyn kken [facility] 07-18-2022 22:30-0400 Diastolic blood pressure 58 mm[Hg] Jairinn Dokken [facility] 07-18-2022 22:30-0400 Heart rate 85 /min Yulyn Dokken [facility] 07-18-2022 22:30-0400 Respiratory rate 16 /min Yulyn Dokken [facility] 07-18-2022 22:30-0400 SaO2% (BldA) [Mass fraction] 95 % Yulyn Dokken [facility] 07-18-2022 22:30-0400 Systolic blood pressure 101 mm[Hg] Jairinn Dokken [facility] 07-18-2022 16:15-0400 Diastolic blood pressure 84 mm[Hg] [employer] 07-18-2022 16:15-0400 Heart rate 90 /min [employer] 07-18-2022 16:15-0400 Respiratory rate 16 /min [employer] 07-18-2022 16:15-0400 SaO2% (BldA) [Mass fraction] 98 % [employer] 07-18-2022 16:15-0400 Systolic blood pressure 135 mm[Hg] [address] 04-10-2022 11:05-0500 Diastolic blood pressure 83 mm[Hg] Callahan SALAM [facility] 04-10-2022 11:05-0500 Mean blood pressure 106 mm[Hg] Callahan SALAM [facility] 04-10-2022 11:05-0500 Systolic blood pressure 151 mm[Hg] Callahan SALAM [facility] 04-10-2022 11:02-0500 Blood Pressure Location Callahan SALAM [facility] 04-10-2022 11:02-0500 Diastolic blood pressure 86 mm[Hg] Callahan SALAM [facility] 04-10-2022 11:02-0500 Heart rate 70 /min Callahan SALAM [facility] 04-10-2022 11:02-0500 Respiratory rate 16 /min Callahan SALAM [facility] 04-10-2022 11:02-0500 SaO2% (BldA) [Mass fraction] 98 % Callahan SALAM [facility] 04-10-2022 11:02-0500 Systolic blood pressure 142 mm[Hg] Callahan SALAM [facility] 04-03-2022 18:00-0500 Diastolic blood pressure 54 mm[Hg] Raul Arnold [facility] 04-03-2022 18:00-0500 Heart rate 66 /min Raul Arnold [facility] 04-03-2022 18:00-0500 Mean blood pressure 78 mm[Hg] Raul Arnold [facility] 04-03-2022 18:00-0500 Respiratory rate 11 /min Raul Clayton [facility] 04-03-2022 18:00-0500 SaO2% (BldA) [Mass fraction] 92 % Raul Clayton [facility] 04-03-2022 18:00-0500 Systolic blood pressure 126 mm[Hg] Raul Clayton [facility] 04-03-2022 16:51-0500 Body temperature 98.24 [degF] Raul Clayton [facility] 04-03-2022 16:51-0500 Diastolic blood pressure 72 mm[Hg] Raul Clayton [facility] 04-03-2022 16:51-0500 Heart rate 72 /min Raul Clayton [facility] 04-03-2022 16:51-0500 Respiratory rate 16 /min Raul Clayton [facility] 04-03-2022 16:51-0500 SaO2% (BldA) [Mass fraction] 99 % Raul Clayton [facility] 04-03-2022 16:51-0500 Systolic blood pressure 120 mm[Hg] Raul Clayton [facility] 04-03-2022 16:36-0500 Body temperature 98.24 [degF] Raul Clayton [facility] 04-03-2022 16:36-0500 Diastolic blood pressure 52 mm[Hg] Raul Clayton [facility] 04-03-2022 16:36-0500 Heart rate 71 /min Raul Clayton [facility] 04-03-2022 16:36-0500 Respiratory rate 16 /min Raul Arnold [facility] 04-03-2022 16:36-0500 SaO2% (BldA) [Mass fraction] 99 % Raul Arnold [facility] 04-03-2022 16:36-0500 Systolic blood pressure 135 mm[Hg] Raul Arnold [facility] 04-02-2022 10:15-0500 Diastolic blood pressure 69 mm[Hg] Brady Marinelli [facility] 04-02-2022 10:15-0500 Heart rate 66 /min Brady Godfreye [facility] 04-02-2022 10:15-0500 Respiratory rate 20 /min Brady Godfreye [facility] 04-02-2022 10:15-0500 SaO2% (BldA) [Mass fraction] 97 % Brady Godfreye [facility] 04-02-2022 10:15-0500 Systolic blood pressure 150 mm[Hg] Brady Yves [facility] 04-02-2022 09:44-0500 Body temperature 97.52 [degF] Brady Yves [facility] 04-02-2022 09:44-0500 Diastolic blood pressure 81 mm[Hg] Brady Yves [facility] 04-02-2022 09:44-0500 Heart rate 64 /min Brady Yves [facility] 04-02-2022 09:44-0500 Respiratory rate 20 /min Brady Yves [facility] 04-02-2022 09:44-0500 SaO2% (BldA) [Mass fraction] 95 % Brady Yves [facility] 04-02-2022 09:44-0500 Systolic blood pressure 138 mm[Hg] Brady Marinelli [facility] 03-13-2022 19:11-0500 Diastolic blood pressure 45 mm[Hg] Raul Arnold [facility] 03-13-2022 19:11-0500 Heart rate 65 /min Raul Clayton [facility] 03-13-2022 19:11-0500 Mean blood pressure 74 mm[Hg] Raul Clayton [facility] 03-13-2022 19:11-0500 Respiratory rate 18 /min Raul Clayton [facility] 03-13-2022 19:11-0500 SaO2% (BldA) [Mass fraction] 99 % Raul Clayton [facility] 03-13-2022 19:11-0500 Systolic blood pressure 133 mm[Hg] Raul Clayton [facility] 03-13-2022 18:00-0500 Diastolic blood pressure 56 mm[Hg] Raul Clayton [facility] 03-13-2022 18:00-0500 Heart rate 66 /min Raul Clayton [facility] 03-13-2022 18:00-0500 SaO2% (BldA) [Mass fraction] 91 % Raul Clayton [facility] 03-13-2022 18:00-0500 Systolic blood pressure 171 mm[Hg] Raul Clayton [facility] 03-13-2022 16:38-0500 Body temperature 97.52 [degF] Raul Arnold [facility] 03-13-2022 16:38-0500 Diastolic blood pressure 61 mm[Hg] Raul Clayton [facility] 03-13-2022 16:38-0500 Heart rate 67 /min Raul Clayton [facility] 03-13-2022 16:38-0500 Mean blood pressure 94 mm[Hg] Raul Clayton [facility] 03-13-2022 16:38-0500 Respiratory rate 18 /min Raul Clayton [facility] 03-13-2022 16:38-0500 SaO2% (BldA) [Mass fraction] 95 % Raul Clayton [facility] 03-13-2022 16:38-0500 Systolic blood pressure 160 mm[Hg] Raul Clayton [facility] 02-08-2022 22:25-0500 Diastolic blood pressure 77 mm[Hg] Kaylinn Dokken [facility] 02-08-2022 22:25-0500 Heart rate 79 /min Kaylinn Dokken [facility] 02-08-2022 22:25-0500 Respiratory rate 18 /min Kaylinn Dokken [facility] 02-08-2022 22:25-0500 SaO2% (BldA) [Mass fraction] 96 % Kaylinn Dokken [facility] 02-08-2022 22:25-0500 Systolic blood pressure 185 mm[Hg] Kaylinn Dokken [facility] 02-08-2022 21:51-0500 Diastolic blood pressure 79 mm[Hg] Kaylinn Dokken [facility] 02-08-2022 21:51-0500 Heart rate 78 /min Ty Savageen [facility] 02-08-2022 21:51-0500 Hourly Rounding Yulyn Doreed [facility] 02-08-2022 21:51-0500 Nursing Progress Note Reason Other: Pt mediciated per orders. Call light in reach. Denies any needs at this time. Ty Savageen [facility] 02-08-2022 21:51-0500 Respiratory rate 18 /min Yulyn Husseinen [facility] 02-08-2022 21:51-0500 SaO2% (BldA) [Mass fraction] 96 % Ty Manrique [facility] 02-08-2022 21:51-0500 Systolic blood pressure 176 mm[Hg] Yulyn kken [facility] 02-08-2022 21:15-0500 Diastolic blood pressure 66 mm[Hg] Yulyn Dokken [facility] 02-08-2022 21:15-0500 Heart rate 74 /min Ty Savageen [facility] 02-08-2022 21:15-0500 Hourly Rounding Yulyn Dokkjohnny [facility] 02-08-2022 21:15-0500 Nursing Progress Note Reason Other: UA obtained and sent to lab. Ty Savageen [facility] 02-08-2022 21:15-0500 Respiratory rate 18 /min Yulyn Dokken [facility] 02-08-2022 21:15-0500 SaO2% (BldA) [Mass fraction] 96 % Ty Manrique [facility] 02-08-2022 21:15-0500 Systolic blood pressure 154 mm[Hg] Ty Manrique [facility] 02-08-2022 20:30-0500 Body temperature 98.24 [degF] Ty Manrique [facility] 02-03-2022 05:00-0500 Body temperature 98.24 [degF] Vadim Gusman [facility] 02-03-2022 05:00-0500 Diastolic blood pressure 66 mm[Hg] Vadim Naseem [facility] 02-03-2022 05:00-0500 Heart rate 63 /min Vadim Naseem [facility] 02-03-2022 05:00-0500 Mean blood pressure 95 mm[Hg] Vadim Naseem [facility] 02-03-2022 05:00-0500 Respiratory rate 13 /min Vadim Naseem [facility] 02-03-2022 05:00-0500 SaO2% (BldA) [Mass fraction] 90 % Vadim Naseem [facility] 02-03-2022 05:00-0500 Systolic blood pressure 153 mm[Hg] Vadim Naseem [facility] 02-03-2022 04:00-0500 Body temperature 98.6 [degF] Vadim Naseem [facility] 02-03-2022 04:00-0500 Diastolic blood pressure 69 mm[Hg] Vadim Naseem [facility] 02-03-2022 04:00-0500 Mean blood pressure 99 mm[Hg] Vadim Naseem [facility] 02-03-2022 04:00-0500 Respiratory rate 14 /min Vadim Naseem [facility] 02-03-2022 04:00-0500 SaO2% (BldA) [Mass fraction] 92 % Vadim Naseem [facility] 02-03-2022 04:00-0500 Systolic blood pressure 159 mm[Hg] Vadim Naseem [facility] 02-03-2022 03:00-0500 Mean blood pressure 100 mm[Hg] Vadim Naseem [facility] 02-03-2022 03:00-0500 Respiratory rate 39 /min Vadim Naseem [facility] 02-03-2022 03:00-0500 SaO2% (BldA) [Mass fraction] 91 % Vadim Naseem [facility] 02-03-2022 03:00-0500 Systolic blood pressure 163 mm[Hg] Vadim Naseem [facility] 02-03-2022 01:14-0500 gluc 186 mg/dL Vadim Naseem [facility] 02-03-2022 01:14-0500 gluc Vadim Naseem [facility] 02-03-2022 01:10-0500 Heart rate 70 /min Vadim Naseem [facility] 02-03-2022 01:10-0500 Respiratory rate 20 /min Vadim Naseem [facility] 02-02-2022 14:00-0400 Blood Pressure Location [facility] 02-02-2022 14:00-0400 BP/Pulse Patient Position [facility] 02-02-2022 14:00-0400 Respiratory rate 18 /min [facility] 02-02-2022 13:00-0400 Hourly Rounding [facility] 02-02-2022 12:33-0400 Hourly Rounding [facility] 02-02-2022 12:33-0400 Promise to Return [facility] 02-02-2022 11:09-0400 Body temperature 97.88 [degF] [facility] 02-02-2022 11:09-0400 Diastolic blood pressure 75 mm[Hg] [facility] 02-02-2022 11:09-0400 Heart rate 65 /min [facility] 02-02-2022 11:09-0400 Mean blood pressure 101 mm[Hg] [facility] 02-02-2022 11:09-0400 SaO2% (BldA) [Mass fraction] 94 % [facility] 02-02-2022 11:09-0400 Systolic blood pressure 154 mm[Hg] [facility] 02-02-2022 11:09-0400 Respiratory rate 20 /min [facility] 02-02-2022 11:00-0400 Hourly Rounding [facility] 02-02-2022 08:58-0400 Promise to Return [facility] 02-02-2022 07:29-0400 Body temperature 97.88 [degF] [facility] 02-02-2022 07:29-0400 Diastolic blood pressure 65 mm[Hg] [facility] 02-02-2022 07:29-0400 Heart rate 69 /min [facility] 02-02-2022 07:29-0400 Mean blood pressure 95 mm[Hg] [facility] 02-02-2022 07:29-0400 SaO2% (BldA) [Mass fraction] 92 % [facility] 02-02-2022 07:29-0400 Systolic blood pressure 153 mm[Hg] [facility] 02-02-2022 06:21-0400 Promise to Return [facility] 02-02-2022 02:05-0400 Body temperature 97.7 [degF] [facility] 02-02-2022 02:05-0400 Diastolic blood pressure 62 mm[Hg] [facility] 02-02-2022 02:05-0400 Heart rate 73 /min [facility] 02-02-2022 02:05-0400 Mean blood pressure 78 mm[Hg] [facility] 02-02-2022 02:05-0400 SaO2% (BldA) [Mass fraction] 93 % [facility] 02-02-2022 02:05-0400 Systolic blood pressure 112 mm[Hg] [facility] 02-01-2022 21:24-0400 gluc 261 mg/dL [facility] 02-01-2022 19:35-0400 Blood Pressure Location [facility] 02-01-2022 19:35-0400 BP/Pulse Patient Position [facility] 02-01-2022 19:35-0400 Respiratory rate 16 /min [facility] 02-01-2022 16:59-0400 gluc 225 mg/dL [facility] 02-01-2022 16:11-0400 Blood Pressure Location [facility] 02-01-2022 16:11-0400 BP/Pulse Patient Position [facility] 02-01-2022 11:11-0400 Mean blood pressure 123 mm[Hg] [facility] 02-01-2022 08:33-0400 Heart rate 78 /min [facility] 02-01-2022 08:08-0400 gluc 119 mg/dL [facility] 02-01-2022 05:20-0400 Heart rate 88 /min [facility] 02-01-2022 03:08-0400 Mean blood pressure 82 mm[Hg] [facility] 02-01-2022 01:01-0400 Mean blood pressure 88 mm[Hg] [facility] 01-31-2022 21:13-0400 Heart rate 83 /min [facility] 01-30-2022 14:00-0400 Mean blood pressure 88 mm[Hg] [facility] 01-30-2022 12:19-0400 Hourly Rounding [facility] 01-30-2022 12:19-0400 Promise [facility] 01-30-2022 12:00-0400 Body temperature 98.06 [degF] [facility] 01-30-2022 12:00-0400 Diastolic blood pressure 72 mm[Hg] [facility] 01-30-2022 12:00-0400 Heart rate 71 /min [facility] 01-30-2022 12:00-0400 SaO2% (BldA) [Mass fraction] 96 % [facility] 01-30-2022 12:00-0400 Systolic blood pressure 122 mm[Hg] [facility] 01-30-2022 11:19-0400 Hourly Rounding [facility] 01-30-2022 11:19-0400 [facility] 01-30-2022 10:48-0400 Hourly Rounding [facility] 01-30-2022 10:48-0400 [facility] 01-30-2022 08:00-0400 Body temperature 97.52 [degF] [facility] 01-30-2022 08:00-0400 Diastolic blood pressure 49 mm[Hg] [facility] 01-30-2022 08:00-0400 Heart rate 79 /min ramona [facility] 01-30-2022 08:00-0400 SaO2% (BldA) [Mass fraction] 91 % [facility] 01-30-2022 08:00-0400 Systolic blood pressure 132 mm[Hg] [facility] 01-30-2022 06:00-0400 Diastolic blood pressure 46 mm[Hg] [facility] 01-30-2022 06:00-0400 Heart rate 64 /min [facility] 01-30-2022 06:00-0400 Mean blood pressure 70 mm[Hg] [facility] 01-30-2022 06:00-0400 Respiratory rate 19 /min [facility] 01-30-2022 06:00-0400 SaO2% (BldA) [Mass fraction] 94 % [facility] 01-30-2022 06:00-0400 Systolic blood pressure 110 mm[Hg] [facility] 01-30-2022 05:00-0400 Respiratory rate 14 /min [facility] 01-30-2022 04:00-0400 Body temperature 97.88 [degF] [facility] 01-30-2022 04:00-0400 Mean blood pressure 73 mm[Hg] ramona [facility] 01-30-2022 00:00-0400 Body temperature 97.52 [degF] [facility] 01-29-2022 19:00-0400 Body temperature 98.06 [degF] [facility] 01-29-2022 16:31-0400 gluc 154 mg/dL [facility] 01-29-2022 11:00-0400 gluc [facility] 08:00-0400 gluc 130 mg/dL [facility] 01-29-2022 07:00-0400 Blood Pressure Location [facility] 01-28-2022 19:00-0400 Respiratory rate 14 /min [facility] 01-28-2022 18:14-0400 Heart rate 73 /min [facility] 01-28-2022 18:14-0400 Respiratory rate 15 /min [facility] 01-28-2022 17:00-0400 Respiratory rate 18 /min [facility] 01-28-2022 12:01-0400 Heart rate 99 /min [facility] 01-27-2022 17:31-0400 Diastolic blood pressure 60 mm[Hg] [facility] 01-27-2022 17:31-0400 Heart rate 63 /min [facility] 01-27-2022 17:31-0400 Mean blood pressure 99 mm[Hg] [facility] 01-27-2022 17:31-0400 Respiratory rate 20 /min [facility] 01-27-2022 17:31-0400 SaO2% (BldA) [Mass fraction] 97 % [facility] 01-27-2022 17:31-0400 Systolic blood pressure 177 mm[Hg] [facility] 01-27-2022 16:59-0400 Diastolic blood pressure 81 mm[Hg] [facility] 01-27-2022 16:59-0400 Heart rate 68 /min [facility] 01-27-2022 16:59-0400 Mean blood pressure 117 mm[Hg] [facility] 01-27-2022 16:59-0400 Respiratory rate 19 /min [facility] 01-27-2022 16:59-0400 SaO2% (BldA) [Mass fraction] 97 % [facility] 01-27-2022 16:59-0400 Systolic blood pressure 190 mm[Hg] [facility] 01-27-2022 16:00-0400 Diastolic blood pressure 73 mm[Hg] [facility] 01-27-2022 16:00-0400 Mean blood pressure 106 mm[Hg] [facility] 01-27-2022 16:00-0400 SaO2% (BldA) [Mass fraction] 99 % [facility] 01-27-2022 16:00-0400 Systolic blood pressure 171 mm[Hg] [facility] 01-27-2022 14:45-0400 Body temperature 97.88 [degF] [facility] 01-27-2022 14:45-0400 Heart rate 65 /min [facility] 11-17-2021 19:35-0400 Diastolic blood pressure 83 mm[Hg] Brady Marinelli [facility] 11-17-2021 19:35-0400 Heart rate 73 /min Brady Marinelli [facility] 11-17-2021 19:35-0400 Hourly Rounding Brady Marinelli [facility] 11-17-2021 19:35-0400 Respiratory rate 18 /min Brady Marinelli [facility] 11-17-2021 19:35-0400 SaO2% (BldA) [Mass fraction] 94 % Brady Godfreye [facility] 11-17-2021 19:35-0400 Systolic blood pressure 186 mm[Hg] Brady Godfreye [facility] 11-17-2021 18:28-0400 Diastolic blood pressure 59 mm[Hg] Brady Godfreye [facility] 11-17-2021 18:28-0400 Heart rate 69 /min Brady Godfreye [facility] 11-17-2021 18:28-0400 Mean blood pressure 96 mm[Hg] Brady Godfreye [facility] 11-17-2021 18:28-0400 Respiratory rate 14 /min Brady Godfreye [facility] 11-17-2021 18:28-0400 SaO2% (BldA) [Mass fraction] 93 % Brady Godfreye [facility] 11-17-2021 18:28-0400 Systolic blood pressure 171 mm[Hg] Brady Godfreye [facility] 11-17-2021 17:30-0400 Body temperature 97.88 [degF] Brady Godfreye [facility] 11-17-2021 17:30-0400 Diastolic blood pressure 75 mm[Hg] Brady Godfreye [facility] 11-17-2021 17:30-0400 Heart rate 78 /min Brady Godfreye [facility] 11-17-2021 17:30-0400 Respiratory rate 20 /min Brady Godfreye [facility] 11-17-2021 17:30-0400 SaO2% (BldA) [Mass fraction] 95 % Brady Godfreye [facility] 11-17-2021 17:30-0400 Systolic blood pressure 144 mm[Hg] Brady Godfreye [facility] Encounters Encounter Date Encounter Type Care Provider Facility Start: 09-23-2023 End: 09-23-2023 ambulatory Lincoln D Rolando Facility:[facility] Start: 09-23-2023 End: 09-23-2023 Patient encounter procedure Lincoln Almaguer Rolando [facility] Start: 09-18-2023 End: 09-18-2023 ambulatory DO Marcelo C Link Facility:[facility] Start: 09-18-2023 End: 09-18-2023 Patient encounter procedure Marcelo C Link [facility] Start: 08-07-2023 End: 08-07-2023 ambulatory DO Marcelo C Link Facility:[facility] Start: 08-07-2023 End: 08-07-2023 Patient encounter procedure Marcelo C Link [facility] Start: 08-01-2023 End: 08-01-2023 ambulatory DO Marcelo C Link Facility:[facility] Start: 08-01-2023 End: 08-01-2023 Patient encounter procedure Marcelo C Link [facility] Start: 07-01-2023 End: 07-01-2023 ambulatory DO Marcelo C Link Facility:[facility] Start: 07-01-2023 End: 07-01-2023 Patient encounter procedure Marcelo C Link [facility] Start: 07-01-2023 End: 07-01-2023 ambulatory JOAQUIM RICE Not Available Start: 05-20-2023 End: 05-20-2023 ambulatory JOAQUIM RICE Not Available Start: 05-20-2023 End: 05-24-2023 Pre-admission assessment Joaquim Rice [facility] Start: 05-12-2023 Telephone encounter Joaquim mcgarry DO Work Phone: [facility] Start: 05-09-2023 End: 05-21-2023 Pre-admission assessment Joaquim Rice [facility] Start: 04-11-2023 End: 04-11-2023 ambulatory Joaquim Rice Facility:[facility] Start: 03-12-2023 End: 03-27-2023 Pre-admission assessment Joaquim Rice [facility] Start: 03-03-2023 End: 03-03-2023 ambulatory Ashish Chester Other [employer] Other Start: 03-03-2023 Office outpatient vi sit 25 minutes Ashish HUNTER Infectious [facility] Start: 02-13-2023 End: 02-13-2023 Admission to same day surgery center Joaquim Rice [facility] Start: 02-13-2023 End: 02-13-2023 ambulatory Joaquim Rice Facility:[facility] Start: 02-03-2023 End: 02-03-2023 ambulatory Ashish Chester Other [employer] Other Start: 02-03-2023 Office outpatient vi sit 25 minutes Ashish Chester [facility] Start: 01-13-2023 End: 01-13-2023 ambulatory Ashish Chester Other [employer] Other Start: 01-13-2023 Telephone encounter Ashish Chester [facility] Start: 12-19-2022 End: 12-24-2022 Evaluation and management of inpatient Joaquim Rice [facility] Start: 12-08-2022 End: 12-08-2022 ambulatory Emely Mccall Facility:[id number] Start: 12-08-2022 End: 12-08-2022 Off-Site [facility] Start: 12-05-2022 ambulatory Emely Cal Bondi ty:[facility] Start: 12-03-2022 End: 12-03-2022 ambulatory José OAKLYN Facility:[id number] Start: 12-03-2022 End: 12-03-2022 Off-Site [facility] Start: 11-29-2022 End: 12-19-2022 ambulatory [facility] Facility:[facility] Start: 11-24-2022 End: 11-29-2022 Evaluation and management of inpatient Soni PADGETT Facility:[facility] Start: 11-24-2022 End: 11-29-2022 Evaluation and management of inpatient Reymundo ARGUETASLIN [facility] Start: 10-02-2022 End: 10-02-2022 Emergency department patient visit Raul Arnold [facility] Start: 09-04-2022 End: 09-04-2022 Emergency department patient visit Hari Martinez [facility] Start: 09-04-2022 End: 09-04-2022 Emergency department patient visit Marcelo Call [facility] Start: 08-09-2022 End: 08-09-2022 Emergency department patient visit Raul Arnold [facility] Start: 07-18-2022 End: 07-18-2022 Emergency department patient visit yT Manrique [facility] Start: 07-18-2022 End: 08-09-2022 ambulatory UNKNOWN PROVIDER Facility:[facility] Start: 07-18-2022 End: 07-18-2022 ambulatory [facility], Treat and Transport Start: 07-18-2022 End: 07-18-2022 Emergency department patient visit [facility] Triage, Treat and Transport Comment on above: Arrived Start: 04-10-2022 End: 04-10-2022 Patient encounter procedure [place] DIAZ [facility] Start: 04-03-2022 End: 04-03-2022 Emergency department patient visit Raul Arnold [facility] Start: 04-02-2022 End: 04-02-2022 Emergency department patient visit Brady Yves [facility] Start: 03-13-2022 End: 03-13-2022 Emergency department patient visit Raul Arnold [facility] Start: 03-05-2022 End: 03-05-2022 Patient encounter procedure Marcelo Rivers Link [facility] Start: 02-13-2022 End: 02-13-2022 Patient encounter procedure Marcelo Rivers Link [facility] Start: 02-08-2022 End: 02-08-2022 Emergency department patient visit Ty Manrique [facility] Start: 02-03-2022 End: 02-03-2022 Emergency department patient visit Vadim Gusman [facility] Start: 01-31-2022 End: 02-02-2022 Observation Kilo HARRIS [facility] Start: 01-29-[address] Chuck Vernon Facility: Start: 01-28-2022 End: 01-30-2022 Observation Erickmisael Hailey [facility] Start: 01-28-2022 End: 01-28-2022 Patient encounter procedure Jean Claude Schaeffer [facility] Start: 01-27-2022 End: 01-27-2022 Emergency department patient visit Earnest Robertsongriffin [facility] Start: 11-17-2021 End: 11-17-2021 Emergency department patient visit Brady Marinelli [facility] Start: 11-09-2021 End: 11-09-2021 Patient encounter procedure Marcelo C Link [facility] Start: 11-08-2021 End: 11-14-2021 Pre-admission assessment Marcelo C Link [facility] Start: 10-15-2021 End: 10-15-2021 Patient encounter procedure Marcelo C Link [facility] Procedures Date Procedure Procedure Detail Performing [...] Screening for malign ant neoplasm of colon [facility] Start: 11-21-2023 ambulatory Facility:[facility] Start: 11-21-2023 ambulatory Facility:[facility] Start: 11-29-2022 Influenza vaccination Influenza Vacc ine (#1) [facility] Start: 12-23-2019 Screening for malign ant neoplasm of breast Mammogram [facility] Start: 10-10-2019 Pneumococcal vaccination Pneum ococcal Vaccine(s) (65+ yrs) (1 - PCV) [facility] Start: 10-10-2019 Pneumococcal Vaccine : 65+ Years (3 - PPSV23 or PCV20) Pneumococcal Vaccine: 65+ Years (3 - PPSV23 or PCV20) [facility] Start: 10-10-2019 Screening for osteoporosis [...] influenza virus vaccine, unspecified formulation Marcelo Call [facility] [place] Comment on above: Result Comment: nurs ing home 07-30-2020 SARS-CoV-2 (COVID-19 ) mRNA BNT-162b2 vax Jean Claude Akkina [facility] 07-10-2020 SARS-CoV-2 (COVID-19 ) mRNA BNT-162b2 vax Jean Claude Akkina [facility] 03-01-2020 influenza virus vaccine, unspecified formulation Jean Claude Akkina [facility] 03-31-2019 SARS-CoV-2 (COVID-19 ) mRNA BNT-162s9 vax Marcelo Link [facility] 12-30-2018 influenza virus vaccine, unspecified formulation Jean Claude Akkina [facility] 12-30-2017 influenza virus vaccine, unspecified formulation Jean Claude Akkina [facility] 06-10-2013 pneumococcal conjuga te vaccine, 13 valent Jean Claude Akkina [facility] 06-10-2013 influenza, seasonal, injectable Marcelo Link [facility] 06-10-2013 pneumococcal polysaccharide vaccine, 23 valent Marcelo Link [facility] 10-30-2010 tetanus toxoid, redu polina diphtheria toxoid, and acellular pertussis vaccine, adsorbed Marcelo Link [facility] Comment on above: Early/Late Reason: O THER: 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 reports that she had an Adacel injection less than 5 years ago. Payers Date Payer Category Payer Medicaid [id number] 2021 Medicaid MEDICAID [place] [facility] [id number] 2021-Present [phone] [address] [place] [address] Medicaid [id number] 2021 Unknown [id number] 2012 Medicare MEDICARE MEDICAR E PART B [id number] 2012-[place] [address] Medicare [id number] 2012 Medicare [id number] 1954 Unknown [id number] 2.16.840.1.016992.3.579.2.356 1954 Unknown [id number] 2.16.840.1.278344.3.579.2.356 1954 Unknown [id number] 2.16.840.1.983642.3.579.2.732 1954 Unknown [id number] 2.16.840.1.195811.3.579.2.1259 1954 Unknown [id number] 2.16.840.1.937825.3.579.2.125 1954 Unknown [id number] 2.16.840.1.645447.3.579.2.1259 1954 Unknown [id number] 2.16.840.1.541983.3.579.2.1259 1954 Unknown [id number] 2.16.840.1.366518.3.579.2.727 1954 Unknown [id number] 2.16.840.1.412141.3.579.2.727 1954 Unknown [id number] 2.16.840.1.264008.3.579.2.727 1954 Unknown [id number] 2.16.840.1.604773.3.579.2. 1954 Unknown [id number] 2.16.840.1.455635.3.579.2.72 1954 Unknown [id number] 2.16.840.1.377351.3.579.2. 1954 Unknown [id number] 2.16.840.1.408718.3.579.2.72 1954 Unknown [id number] 2.16.840.1.715851.3.579.2. 1954 Unknown [id number] 2.16.840.1.921483.3.579.2. 1954 Unknown [id number] 2.16.840.1.929091.3.579.2. 1954 Unknown [id number] 2.16.840.1.864653.3.579.2.72 1954 Unknown [id number] 2.16.840.1.633285.3.579.2. 1954 Unknown [id number] 2.16.840.1.071713.3.579.2. 1954 Unknown [id number] 2.16.840.1.969342.3.579.2.72 1954 Unknown [id number] 2.16.840.1.814981.3.579.2.72 1954 Unknown [id number] 2.16.840.1.258004.3.579.2. Social History Date Type Detail Facility Start: 01-19-2021 End: 09-18-2023 Tobacco smoking status Never smoked tobacco (finding) [facility] Comment on above: denies Tobacco smoking status Never [facility] Comment on above: denies Start: 02-06-2023 Sex Assigned At Female F [facility] Tobacco smoking status NHIS Tobacco smoking consumption [facility] Start: 1955 Sex Assigned At Not on file [facility] Comment on above: denies Tobacco smoking status No Smoking Status Entered [facility] Start: 12-19-2022 Tobacco use and exposure Smokeless tobacco non-user [facility] Start: 04-10-2023 Alcohol intake Lifetime non-d charlie (finding) [facility] Start: 02-06-2023 History of Social function [facility] Medical Equipment Procedure Code Equipment Code Equipment Origin al Text Equipment Identifier Dates HIP BIPOLAR ARTHROPLASTY Joaquim Rice DO A 11/25/22 Non Biological Hip R {[id number]{ [id number] FDA Start: 11-25-2022 HIP TOTAL ARTHRO PLASTY [...] Start: 12-20-2022 HIP TOTAL ARTHRO PLASTY REVISION Jaoquim Rice DO A 12/20/22 Unknown Hip R [...] Assessment Result Facility 09-18-2023 Functional Status N/A [facility] 08-07-2023 Functional Status N/A [facility] 07-01-2023 Functional Status N/A [facility] 02-12-2023 Functional Status No [facility] 12-19-2022 Functional Status N/A [facility] 11-24-2022 Functional Status No [facility] 11-24-2022 Functional Status [facility] 10-02-2022 Functional Status N/A [facility] 09-04-2022 Functional Status N/A [facility] 09-04-2022 Functional Status N/A [facility] 08-09-2022 Functional Status N/A [facility] 07-18-2022 Functional Status N/A [facility] 04-10-2022 Functional Status N/A [facility] 04-03-2022 Functional Status N/A [facility] 04-02-2022 Functional Status N/A [facility] 03-13-2022 Functional Status N/A [facility] 02-08-2022 Functional Status N/A [facility] 02-03-2022 Functional Status N/A [facility] 02-01-2022 Functional Status No [facility] 01-31-2022 Functional Status [facility] 01-28-2022 Functional Status N/A [facility] 01-28-2022 Functional Status [facility] 01-27-2022 Functional Status N/A [facility] 11-17-2021 Functional Status N/A Lyle Diaz [facility] Clinical Notes 11-17-2021 to 08-01-2023 Telephone Encounter - [facility] - 05/12/2023 10:28 AM ESTTelephone Encounter - [facility] 05/12/2023 10:28 AM EST Note Date & Type Note Facility 08-01-2023 Hospital Discharg e instructions Follow Up Care 08/01/2023 10:01:14 With:Marcelo Call DO, FAM Address: [address] [address]- When:6 weeks Comments:6 WEEKS FOLLOWUP [facility] [place] 07-01-2023 Hospital Discharg e instructions Patient Education [...] your hypoglycemia. Where to find more information [place] [employer]: www.diabetes.org National [place] of Diabetes and Digestive and Kidney Diseases: [...] provider. Document Revised: 02/15/2021 Document Reviewed: 02/15/2021 [employer] Patient Education 2022 Context Matters. Follow Up Care 06/27/2023 11:25:55 With:Jakub Marcelo DUVALLISABELA Address: [address] [place], [place] [id number]- When:4 weeks Comments:4 WEEKS FOLLOWUP [facility] [place] 05-12-2023 Telephone encount er Note Pts care home called to get a f/U appt scheduled from R Hip aspiration 04/11/[address] [facility]. Does this patient need one? If so how when would you like me to schedule this appt? Yolie [phone] (aoc director combat operations officer) [facility] 05-12-2023 Miscellaneous Notes Formattin g of this note might be different from the original. Pts care home called to get a f/U appt scheduled from R Hip aspiration 04/11/[address] [facility]. Does this patient need one? If so how when would you like me to schedule this appt? Yolie [phone] (aoc director combat operations officer) documented in this encounter [facility] 04-10-2023 Note [id number]#[id number] [facility] 03-20-2023 Note [id number]#1.00TIFF [facility] 03-03-2023 Evaluation note Encounter Date Diagnosis [...] of diseases classified elsewhere (ICD-10 - B96.89) [employer] Other [id number] Evaluation + Plan noteExtracted from: Title:ANES Post-operative Note - General Author: Can Kaplan Jr., DO Date:02/13/23 Plan Transfer/Discharge: Transfer/Discharge Discharge when meets criteria ( From PACU to Ambulatory Surgery Unit, and To home ). Extracted from: Title:LESLIE Pre-operative Note - Adult Author:Can Chapa Jr., DO Date:02/13/23 Plan [place] [employer] Anesthesiologists (ASA) physical status classification: Class III. Anesthetic Preoperative Plan: Anesthesia General. Future Scheduled Tests Radiology* NM Gastric Emptying Study 04/10/22 [facility]11-16-2023 Hospital Discharge instructions Patient Education 02/13/2023 08:20:41 Post Op Patient Instructions - FT (Custom) (CUSTOM) 02/13/2023 07:23:07 Henri Rice - Hip Injection with Anesthesia (Custom) [place], [place] [facility] HIP INJECTION WITH ANESTHESIA [...] persistent vomiting. Joaquim Rice DO [facility] [address] [place] [address] Reviewed: [facility]11-06-2023 Evaluation note* Encounter Date Diagnosis Assessment [...] of diseases classified elsewhere (ICD-10 - B96.89) [employer] Other 10-31-2023 Note [id number] [facility]-2023 NoteFisher [facility]Comment on above:Result Comment: printed and restickered and scanned to proper finElectronically Signed By: Joaquim Rice DO\.br\Date and Time Signed: 01/24/23 18:47 [id number] Note [id number]#1.00TIFChano [facility] 12-24-2022 Hospital Discharge instructions Patient Education 12/24/2022 [...] Follow these instructions at home: Medicines Take gdts-aea-llzlawg and prescription medicines only as told by [...] and water are not available, use hand social media executive. Keep all follow-up visits. This is important. [...] provider. Document Revised: 02/06/2022 Document Reviewed: 02/06/2022 [employer] Patient Education 2022 Context Matters. Follow Up Care 12/19/2022 11:45:54 With:Joaquim Rice Address: [address] [place] [address]- Business (1) When: Unknown Comments:Call for followup appointment With:Ashish Chester Address: [address] [place] [address] Business (1) When:2 weeks Comments:Call for followup appointment With:Marcelo Call Address: [address], [facility] [address] [place] [address]- Business (1) When: Unknown [facility]09-26-2023 Evaluation + Plan noteExtracted from: Title:APSO [...] Started patient on MiraLAX for constipation. Ordered: [facility] Hospital Care/Day Moderate 35 Minutes [id number] 2. Acute blood loss anemia (D62: Acute posthemorrhagic anemia) From recent admission. Hemoglobin stable. Continue on ferrous sulfate. Ordered: [facility] Hospital Care/Day Moderate 35 Minutes 26512 3. 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 Ordered: [facility] Hospital Care/Day Moderate 35 Minutes [id number] 4. HTN (hypertension) (I10: Essential (primary) hypertension) Blood pressure controlled. Continue on Coreg and lisinopril. Ordered: [facility] Hospital Care/Day Moderate 35 Minutes 19194 5. Hypothyroidism (E03.9: Hypothyroidism, unspecified) Stable. On Synthroid. Disposition: To [facility] facility when arranged. I discussed the diagnosis and plan of care with the patient at the bedside. Moderate level of MDM based on addressing above issues. This documentation was transcribed using voice recognition software. Several attempts were made to ensure accuracy. However inadvertent computerized clinical courier errors may be present. Soni Padgett. Hospitalist. Ordered: [facility] Hospital Care/Day Moderate 35 Minutes [id number] Orders: bisacodyl, 10 mg = 2 tab(s), [...] PICC line. Infectious disease consult pending. Ordered: [facility] Hospital Care/Day Moderate 35 Minutes [id number] 2. Acute blood loss anemia (D62: Acute posthemorrhagic anemia) From recent admission. Hemoglobin above 7.0. No need for blood transfusion. Continue on ferrous sulfate. Ordered: [facility] Hospital Care/Day Moderate 35 Minutes 77399 3. 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 Ordered: [facility] Hospital Care/Day Moderate 35 Minutes [id number] 4. HTN (hypertension) (I10: Essential (primary) hypertension) Blood pressure fairly controlled. Continue on Coreg, lisinopril. Ordered: [facility] Hospital Care/Day Moderate 35 Minutes 81540 5. Hypothyroidism (E03.9: Hypothyroidism, unspecified) Continue Synthroid. Disposition: Pending final wound culture results and final infectious disease recommendations. I discussed the diagnosis and plan of care with the patient at the bedside. Moderate level of MDM based on addressing above issues. This documentation was transcribed using voice recognition software. Several attempts were made to ensure accuracy. However inadvertent computerized clinical courier errors may be present. Soni Padgett. Hospitalist. Ordered: [facility] Hospital Care/Day Moderate 35 Minutes [id number] Extracted from: Title:Progress/SOAP Note Author:Rosalia Grossman DO [...] Ordered: Initial Hospital Care/Day Moderate 55 Minutes [id number] 2. Diabetes mellitus with polyneuropathy (E11.42: Type 2 diabetes mellitus with diabetic polyneuropathy) Sliding scale insulin for diabetes plus that she takes from home Ordered: Initial Hospital Care/Day Moderate 55 Minutes [id number] 3. HTN (hypertension) (I10: Essential (primary) hypertension) On lisinopril and carvedilol from home; we also resumed her atorvastatin Ordered: Initial Hospital Care/Day Moderate 55 Minutes [id number] PLAN: 1. Patient is on daptomycin 2. [...] Author:Cruzito em MD, Ahmad F Date:12/20/22 Plan [place] [employer] Anesthesiologists (ASA) physical status classification: [...] Tests Radiology* NM Gastric Emptying Study 04/10/22 [facility]09-10-2023 Hospital Discharge instructions Follow Up Care 12/08/2022 11:51:54 With:Emely Mccall DO, FAM Address: When:Within 1 Month(s) [facility] 09-01-2023 Evaluation + Plan noteExtracted [...] [address], [address] [place] [address]- Business (1) Additional Instructions: Joaquim Rice Within 2 to 4 weeks [address] [place] [address]- Business (1) Additional Instructions: Call for followup [...] physical therapy pending precertification to SNF. Ordered: [facility] Hospital Care/Day Moderate 35 Minutes 90331 2. Fall (W19.XXXA: Unspecified fall, initial encounter) Mechanical fall. Stable. Ordered: [facility] Hospital Care/Day Moderate 35 Minutes 37349 3. Acute blood loss anemia (D62: Acute posthemorrhagic anemia) Acute blood loss anemia in the perioperative period. Patient received 1 unit of packed red blood cell transfusion and hemoglobin is stable at around 8.6. She also received IV iron infusions. Continue on oral iron. Ordered: [facility] Hospital Care/Day Moderate 35 Minutes 50577 4. Hypertension (I10: Essential (primary) hypertension) Blood pressure fairly controlled. Continue on Coreg and lisinopril. [facility] Mod[facility] 35 Minutes 01049 5. Hyperlipidemia (E78.5: Hyperlipidemia, unspecified) Stable. On Lipitor. Ordered: [facility] Hospital Care/Day Moderate 35 Minutes 68813 6. Diabetes (E11.9: Type 2 diabetes mellitus [...] for prophylactic measures, unspecified) Lovenox. Disposition: To [facility] facility pending precertification. I discussed the diagnosis and plan of care with the patient at the bedside. Moderate level of MDM based on addressing above issues. This documentation was transcribed using voice recognition software. Several attempts were made to ensure accuracy. However inadvertent computerized clinical courier errors may be present. Soni Padgett. Hospitalist. [...] physical therapy pending precertification to SNF. Ordered: [facility] Hospital Care/Day Moderate 35 Minutes 07412 2. Fall (W19.XXXA: Unspecified fall, initial encounter) Mechanical fall. Supportive care. Ordered: [facility] Hospital Care/Day Moderate 35 Minutes 06880 3. Acute blood loss anemia (D62: Acute posthemorrhagic anemia) Acute blood loss anemia in the perioperative period Status post 1 unit of packed red blood cell transfusion. Hemoglobin stable at 8.6. Patient received IV iron infusions. Continue on oral iron. Ordered: [facility] Hospital Care/Day Moderate 35 Minutes 75851 4. Hypertension (I10: Essential (primary) hypertension) Blood pressure fairly controlled. Continue on Coreg. We will resume lisinopril at discharge with hold parameters. Ordered: [facility] Hospital Care/Day Moderate 35 Minutes 17926 5. Hyperlipidemia (E78.5: Hyperlipidemia, unspecified) Stable. On [...] discharge as per orthopedic surgeon. Disposition: To [facility] facility when arranged pending precertification. I discussed the diagnosis and plan of care with the patient at the bedside. Moderate level of MDM based on addressing above issues. This documentation was transcribed using voice recognition software. Several attempts were made to ensure accuracy. However inadvertent computerized clinical courier errors may be present. Soni Padgett. Hospitalist. [...] 120, # 90 tab(s), Refills(s) 0, Pharmacy: [facility], 162, cm, 01/31/22 21:16:00 EDT, Height/Length Dosing, 70.4, kg, 01/31/22 21:16:00 EDT, Weight Dosing UA With Cult Reflex Extracted from: Title:APSO Note Author:Soni PADGETT MD Date: Called [id number] [place] female with history of hypertension, [...] physical therapy pending precertification to SNF. Ordered: [facility] Hospital Care/Day Moderate 35 Minutes 02151 2. Fall (W19.XXXA: Unspecified fall, initial encounter) Mechanical fall. Supportive care. Ordered: [facility] Hospital Care/Day Moderate 35 Minutes 57401 3. Acute blood loss anemia (D62: Acute posthemorrhagic anemia) Acute blood loss anemia in the perioperative period Status post 1 unit of packed red blood cell transfusion. Patient received IV iron infusions. Continue on oral iron. Ordered: [facility] Hospital Care/Day Moderate 35 Minutes 98017 4. Hypertension (I10: Essential (primary) hypertension) Blood pressure fairly controlled. Continue on Coreg. Lisinopril on hold. Ordered: [facility] Hospital Care/Day Moderate 35 Minutes 98315 5. Hyperlipidemia (E78.5: Hyperlipidemia, unspecified) Stable. On Lipitor. Ordered: [facility] Hospital Care/Day Moderate 35 Minutes 71709 6. Diabetes (E11.9: Type 2 diabetes mellitus [...] for prophylactic measures, unspecified) Lovenox. Disposition: To [facility] facility when arranged. I discussed the diagnosis and plan of care with the patient at the bedside. Moderate level of MDM based on addressing above issues. This documentation was transcribed using voice recognition software. Several attempts were made to ensure accuracy. However inadvertent computerized clinical courier errors may be present. Soni Padgett. Hospitalist. [...] Author:Cruzito em MD, Ahmad F Date:11/25/22 Plan [place] [employer] Anesthesiologists (ASA) physical status classification: [...] Scheduled Provider:José MENESES MD Location:Extended Care Appointment Type:[facility] Future Scheduled Tests Radiology* [place] Gastric Emptying Study 04/10/22 [facility]09-01-2023 [facility]FishJohn[facility] HospitalComment on above:Result Comment: Electronically Signed By: FALLON BANKS, Soni\.br\Date and Time Signed: 11/29/22 11:02 [id number] Hospital Discharge instructions Patient Education 11/28/2022 13:25:57 [...] your health care provider. General instructions Take qdra-gbw-eqkjoxv and prescription medicines only as told by [...] provider. Document Revised: 11/17/2020 Document Reviewed: 11/17/2020 [employer] Patient Education 2021 Context Matters. Follow Up Care 11/24/2022 00:36:57 With:Marcelo Call Address: [address] [facility] [place] [address]- Business (1) When: only if needed With:Joaquim Rice Address: [address] [place] [address]- Business (1) When:2 to 4 weeks Comments:Call for followup appointment [facility]08-27-2023 NoteLyle [facility]Comment on [facility]:Result Comment: Electronically Signed By: Reymundo JORDAN DO\Date and Time Signed: 11/24/22 05:35 [id number] Evaluation + Plan note Extracted from: Title:ED [...] Tests Radiology* NM Gastric Emptying Study 04/10/22 [facility]06-07-2023 Hospital Discharge instructions Patient Education 09/04/2022 [...] Follow these instructions at home: Medicines Take uxvk-tia-unziaks and prescription medicines only as told by your health care provider. Ask your health care provider if the medicine prescribed to you: ?Requires you to avoid driving or using heavy machinery. ?Can cause constipation. You may need to take these actions to prevent or treat constipation: ?Drink enough fluid to keep your urine pale yellow. ?Take xumq-ibh-uayydiq or prescription medicines. ?Eat foods that are [...] provider. Document Revised: 11/24/2019 Document Reviewed: 11/24/2019 [employer] Patient Education 2022 Context Matters. 09/04/2022 21:51:36 Head Injury, Adult Head Injury, [...] Ask your health care provider for a txjy-yy-ispo plan for gradually returning to activities. Ask [...] your friends, family, a trusted colleague, and aniline press worker about your injury, symptoms, and restrictions. Have them watch for any new or worsening problems. General instructions Take dgrp-jxp-rcwhzgk and prescription medicines only as told by [...] provider. Document Revised: 01/28/2020 Document Reviewed: 01/28/2020 [employer] Patient Education 2022 Context Matters. Follow Up Care 09/04/2022 20:22:40 With:Marcelo Link Address: [address], [address] [place] [address] Business (1) When:Within 3 Day(s) [facility]06-07-2023 Hospital Discharge instructions Patient Education 09/04/2022 19:32:42 RICE Therapy for Routine Care of Injuries, Lsnt-ck-Apdg RICE Therapy for Routine Care of Injuries [...] provider. Document Revised: 01/04/2021 Document Reviewed: 01/04/2021 [employer] Patient Education 2022 Context Matters. 09/04/2022 19:32:42 Contusion, Yhsg-eh-Fopx Contusion A contusion is a deep bruise. [...] sitting or lying down. General instructions Take wiig-fln-rdnppak and prescription medicines only as told by [...] is also called RICE. Youmay be given zffo-xdu-blvrqhk medicines for pain. Contact a doctor if [...] provider. Document Revised: 01/10/2022 Document Reviewed: 01/10/2022 [employer] Patient Education 2022 Context Matters. Follow Up Care 09/04/2022 15:05:18 With:Marcelo Link Address: [address] [facility] [place] [address]- Business (1) When:09/07/2022 18:53:36 Comments:Follow-up with your primary care provider in 3 to 5 days. If symptoms worsen, do not improve, or new symptoms arise please report back to emergency department for further evaluation. [facility]06-07-2023 Evaluation + Plan noteExtracted from: Title:ED Note Author:Hari Martinez DO Date :09/04/22 Closed head injury Cervical strain Future Scheduled Tests Radiology* NM Gastric Emptying Study 04/10/22 [facility]05-12-2023 Hospital Discharge instructions Patient Education 08/09/2022 [...] Ask your health care provider for a kutw-cm-rzsd plan for gradually returning to activities. Ask [...] your friends, family, a trusted colleague, and aniline press worker about your injury, symptoms, and restrictions. Have them watch for any new or worsening problems. General instructions Take nztq-yih-mpxknqx and prescription medicines only as told by [...] provider. Document Revised: 01/28/2020 Document Reviewed: 01/28/2020 [employer] Patient Education 2022 [employer]. 08/09/2022 14:12:59 Fall Prevention in Hospitals, Adult [...] balance. Talk with a physical therapist or senior trainer if recommended by your health care [...] provider. Document Revised: 10/18/2020 Document Reviewed: 10/18/2020 [employer] Patient Education 2022 [employer] Matters. Follow Up Care 08/09/2022 12:15:41 With:Marcelo Link Address: [address] [place] [address]- Business (1) When:08/12/2022 14:11:58 Comments:Call the office [...] sleep, or any new or worsening symptoms. [facility]05-12-2023 Evaluation + Plan noteExtracted from: Title:ED [...] Tests Radiology* NM Gastric Emptying Study 04/10/22 [facility]04-21-2023 Hospital Discharge instructions Patient Education 07/18/2022 [...] to strengthen the arm. General instructions Take ignw-wta-ezzwozx and prescription medicines only as told by [...] provider. Document Revised: 11/30/2021 Document Reviewed: 11/30/2021 [employer] Patient Education 2022 [employer] 07/18/2022 23:33:46 Hip Pain Hip Pain [...] activities that cause pain. General instructions Take vtef-uuw-rorwcom and prescription medicines only as told by [...] provider. Document Revised: 08/02/2019 Document Reviewed: 08/02/2019 [employer] Patient Education 2022 [employer] Mat[employer]. 07/18/2022 23:33:46 Fall Prevention in the Home, Adult, Hjay-gv-Jlrh Fall Prevention in the Home, Adult Falls [...] Keep items that you use often in fqso-kp-gniiz places. Lower the shelves around your home [...] of the way. Do not use floor sao tomean or wax that makes floors slippery. What [...] Disease Control and Prevention, STEADI: www.cdc.gov National [place] on Aging: www.britany.nih.gov Contact a doctor if: [...] provider. Document Revised: 12/17/2021 Document Reviewed: 10/18/2020 [employer] Patient Education 2022 [employer] Matters. Follow Up Care 07/18/2022 22:27:53 With:Marcelo Link Address: [address] [place] [address]- Business (1) When:07/21/2022 Comments:Contact ibuprofen, Tylenol at home as needed for pain every 6 hours. Please follow-up with your primary care doctor in the next 2 to 3 days. Please return to the ED for any new or worsening symptoms or [facility]04-20-2023 History of Present illness Narrative* Naseem Hardy MD - 07/18/2022 4:32 PM EDT Images from the original note were not included. EMERGENCY TRIAGE, TREAT AND TRANSPORT (ET3) DOCUMENTATION OF TELEHEALTH VISIT Date / Time: 07/18/2022 / 1615 Name: Fartun Myers NOTE: CORRECT SPELLING MAY BE ZACH : 1955 SSN: (Not on file) EMS Agency: [facility] [x] Verbal consent obtained [] [...] by: Naseem Hardy MD documented in this [id number] Evaluation + Plan note Extracted from: Title:ED [...] Tests Radiology* NM Gastric Emptying Study 04/10/22 [facility]01-11-2023 Evaluation + Plan note Future Scheduled Tests Radiology* IA Gastric Emptying Study 04/10/22 [facility]01-04-2023 Hospital Discharge instructions Patient Education 04/03/2022 [...] sitting or lying down. General instructions Take upnj-umk-zzkhlha and prescription medicines only as told by [...] compression, and elevation. You may be given jbji-wxm-ghoqlbd medicines for pain. Contact a health care [...] 12/25/2005 Document Revised: 11/05/2018 Document Reviewed: 11/05/2018 [employer] Patient Education 2020 [employer] Follow Up Care 04/03/2022 16:34:06 With:Marcelo Link Address: [address], [address] [place] [address]- [facility] (1) When:04/06/2022 18:32:44 Comments:Call the [...] you develop any new or worsening symptoms. [facility]01-04-2023 Evaluation + Plan noteExtracted from: Title:ED [...] Date:04/10/2022 10:15:00 AM Scheduled Provider:London DIAZ MD Location:[facility] Digestive Health Appointment Type:[facility] Follow Up [facility]01-03-2023 Evaluation + Plan noteExtracted from: Title:ED Note Author:Brady Marinelli DO Date:04/02 Contusion of hip (S70.00XA: Contusion of unspecified hip, initial encounter) Elbow contusion (S50.00XA: Contusion of unspecified elbow, initial encounter) Orders: XR Elbow 3+ Views Left XR Hip 2-3 Views Left + Pelvis Future Appointments Appointment Date:04/10/2022 10:15:00 AM Scheduled Provider:London DIAZ MD Location:[facility] Digestive Health Appointment Type:[facility] Follow Up [facility]01-03-2023 Hospital Discharge instructions Patient Education 04/02/2022 [...] your health care provider. General instructions Take dytf-gpl-vnskpqa and prescription medicines only as told by your health care provider. Ask your health care provider if the medicine prescribed to you: ?Requires you to avoid driving or using heavy machinery. ?Can cause constipation. You may need to take actions to prevent or treat constipation, such as: ?Drink enough fluid to keep your urine pale yellow. ?Take uecy-vff-ltonvch or prescription medicines. ?Eat foods that are [...] 11/05/2018 Document Revised: 07/08/2019 Document Reviewed: 11/05/2018 [employer] Patient Education 2020 [employer] 04/02/2022 11:03:46 Elbow Contusion Elbow Contusion [...] sling or splint to support your injury. Bkou-lvw-jiffunr anti-inflammatory medicines, such as ibuprofen, for pain control. Hwqvx-en-culgci exercises. Follow these instructions at home: RICE [...] bath or a shower. General instructions Take fglx-ydp-obnhbip and prescription medicines only as told by your health care provider. Return to your normal activities as told by your health care provider. Ask your health care provider what activities are safe for you. Do pxxer-yn-bpnufu exercises only as told by your health [...] 02/23/2007 Document Revised: 09/17/2018 Document Reviewed: 09/17/2018 [employer] Patient Education 2020 [employer]. Follow Up Care 04/02/2022 09:43:43 With:Marcelo Link Address: [address] [place] [address]- Business (1) When:Within 3 Day(s) [facility]12-14-2022 Hospital Discharge instructions Patient Education 03/13/2022 [...] home: Managing pain, stiffness, and swelling Take gbrm-jva-wmyycda and prescription medicines only as told by [...] as fried and sweet foods. ?Take an ygoh-rao-ysxlouk or prescription medicine for constipation. Contact a [...] 12/10/2001 Document Revised: 05/13/2019 Document Reviewed: 04/06/2018 [employer] Patient Education 2020 [employer] Mat[employer]. 03/13/2022 19:21:56 Abdominal Pain, Adult, Baon-xs-Qpcj Abdominal Pain, Adult Many things can cause belly (abdominal) pain. Most times, belly pain is not dangerous. Many cases of belly pain can be watched and treated at home. Sometimes, though, belly pain is serious. Your doctor will try to find the cause of your belly pain. Follow these instructions at home: Medicines Take hais-hhd-myyrqiw and prescription medicines only as told by [...] your belly pain for any changes. Take chvq-moy-jtavhov and prescription medicines only as told by [...] 09/02/2008 Document Revised: 07/26/2019 Document Reviewed: 07/26/2019 [employer] Patient Education 2019 [employer] Mat[employer]. Follow Up Care 03/13/2022 16:37:17 With:Marcelo Link Address: [address] [place] [address]- Business (1) When:03/16/2022 19:05:35 Comments:Follow-up with your primary care provider in 3 to 5 days. If symptoms worsen, do not improve, or new symptoms arise please report back to emergency department for further evaluation. [facility]11-12-2022 Hospital Discharge instructions Patient Education 02/08/2022 [...] Follow these instructions at home: Medicines Take rfzj-lwf-ijjzlck and prescription medicines only as told by [...] Watch your condition for any changes. Take zivw-rqd-juqlgpb and prescription medicines only as told by [...] 12/25/2005 Document Revised: 07/26/2019 Document Reviewed: 07/26/2019 [employer] Patient Education 2019 [employer] Mat[employer]. Follow Up Care 02/08/2022 20:29:45 With:Marcelo Call Address: [address] [place] [address] Business (1) When:02/11/2022 Comments:Attend scheduled follow-up with Dr. Call next week to discuss management of ongoing chronic pain and other symptoms [facility]11-11-2022 Evaluation + Plan noteExtracted from: Title:ED Note Author:Delbert Estrada PA-C e:02/08/22 Abdominal pain (R10.9: Unspe cified abdominal pain) Nausea (R11.0: Nausea) Orders: Automated Diff Basic Metabolic Panel Beta-hydroxybutyrate CBC w/ Auto Diff eGFR Hepatic Function Panel UA With Cult Reflex XR Abdomen 1 View Future Appointments Appointment Date:04/10/2022 10:15:00 AM Scheduled Provider:London DIAZ MD Location:[facility] Digestive Health Appointment Type:[facility] Follow Up [facility]11-06-2022 Evaluation + Plan noteExtracted from: Title:ED Note Author:Vadim Gusman MD Date: 1. Medication side effect (T 88.7XXA: Unspecified adverse effect of drug or medicament, initial encounter) Orders: Automated Diff Basic Metabolic Panel CBC w/ Auto Diff eGFR Extra Blue Tube UA With Cult Reflex Future Appointments Appointment Date:04/10/2022 10:15:00 AM Scheduled Provider:London DIAZ MD Location:[facility] Digestive Health Appointment Type:[facility] Follow Up [facility]11-06-2022 Hospital Discharge instructions Patient Education 02/03/2022 05:00:01 Accidental Drug Poisoning, Adult Accidental Drug Poisoning, Adult Accidental drug poisoning happens when a person accidentally takes too much of a substance, such asa prescription medicine, an edpq-okp-tbztxjg medicine, a vitamin, a supplement, or an [...] medicines. Cocaine. Heroin. Multivitamins that contain iron. Newe-tcx-rzynkmj cold and cough medicines. What increases the [...] Follow these instructions at home: Medicines Take smgq-qnh-qfalfrw and prescription medicines only as told by your health care provider. Before taking a new medicine, ask your health care provider whether the medicine: ?May cause side effects. ?Might react with other medicines. Keep a list of all the medicines that you take, including gsgt-aab-hicewfw medicines, vitamins, supplements, and herbs. Bring this [...] your cell phone. The hotline of the [place] [employer] of Poison Control Centers is . [...] a substance, such asa prescription medicine, an gmzm-mhm-pyqofyr medicine, a vitamin, a supplement, or an [...] 05/31/2005 Document Revised: 02/27/2018 Document Reviewed: 02/16/2018 [employer] Patient Education [employer] Follow Up Care 02/03/2022 01:08:11 With:Marcelo Link Address: [address] [place] [address]- Business (1) When:02/06/2022 only if needed [facility]11-05-2022 Evaluation + Plan noteExtracted from: Title:Discharge Note Author:DERREK BANKS, Denzel Micheal e:02/02/22 Good Discharge To, Anticipated II - Home with home health Discharged to - Other: states she has a nurse who will be coming in to help with medications and another person to help with infection control manager Home Discharge Diet(s): Calorie Controlled- 1800 Calorie [...] Tab, 112 mcg= 1 tab(s), Oral, Daily Warren 325 mg-5 mg oral tablet, 1 tab(s), [...] AM EST [address] [place] [address]- Business (1) Additional Instructions: Acute Kidney Injury, [...] made to ensure accuracy, however, inadvertently computerized clinical courier mistakes may be present. Dr. Kilo Harris Hospitalist at [facility] Extracted from: Title:ED Note Author:Ty Manrique [...] Date:04/10/2022 10:15:00 AM Scheduled Provider:London DIAZ MD Location:[facility] Digestive Health Appointment Type:[facility] Follow Up Diagnostic Tests Pending * Blood Gas Randall 01/31/22 [facility]11-05-2022 Hospital Discharge instructions Patient Education 02/02/2022 [...] Follow these instructions at home: Medicines Take uobn-hyq-gptyqmu and prescription medicines only as told by [...] is important. Where to find more information [place] [employer] of Kidney Patients: www.aakp.org National Kidney Foundation: www.kidney.org [place] [employer]ney Fund: www.akfinc.org [facility]: [...] 09/30/2011 Document Revised: 02/27/2018 Document Reviewed: 03/07/2017 [employer] Patient Education 2020 [employer]. 02/02/2022 11:03:37 Acute Kidney Injury, Adult Acute [...] Follow these instructions at home: Medicines Take orol-mdg-grhgoca and prescription medicines only as told by [...] is important. Where to find more information [place] [employer] of Kidney Patients: www.aakp.org National Kidney Foundation: www.kidney.org [place] [employer] Fund: www.akfinc.org [facility]: [...] 09/30/2011 Document Revised: 02/27/2018 Document Reviewed: 03/07/2017 [employer] Patient Education [employer]. Follow Up Care 01/31/2022 21:09:18 With:Marcelo Link Address: [address] [facility] [address] [place] [address]- Business (1) When:02/08/2022 10:15:00 [facility]11-02-2022 Evaluation + Plan noteExtracted from: Title:Discharge [...] Tab, 40 mg= 1 tab(s), Oral, Daily Warren 325 mg-5 mg oral tablet, 1 tab(s), [...] NOMI WETZEL [address] [place] [address]- Business (1) Additional Instructions: Marcelo Link In 0 days [address] [place] [address]- Business (1) Additional Instructions: Form - Daily [...] Encounter for prophylactic measures, unspecified) Lovenox daily [facility]11-02-2022 Hospital Discharge instructions Patient Education 01/30/2022 [...] 02/18/2005 Document Revised: 12/29/2018 Document Reviewed: 12/13/2016 [employer] Patient Education 2020 [employer] Mat[employer]. 01/30/2022 09:29:23 Diabetic Ketoacidosis Diabetic Ketoacidosis Diabetic [...] sugar-free liquids, such as water. Medicines Take ggst-vbi-uocabnw and prescription medicines only as told by [...] 03/14/2001 Document Revised: 05/02/2017 Document Reviewed: 04/21/2017 [employer] Patient Education 2020 [employer] Mat[employer]. 01/30/2022 09:29:22 Diabetes Mellitus and Sick Day [...] lot of sugar. Take medicines as directed Tonj-rzxr-jgz-counter and prescription medicines only as told by [...] 03/19/2004 Document Revised: 12/13/2016 Document Reviewed: 12/13/2016 [employer] Patient Education 2020 [employer] Mat[employer]. 01/30/2022 09:29:20 Diabetes Mellitus and Nutrition, Adult [...] that you work with a diet and respiratory care specialist (dietitian) tomake a meal plan that [...] blood glucose? Where to find more information: [place] Diabetes Association: diabetes.org Academy of Nutrition and Dietetics: www.eatright.org National [place] of Diabetes and Digestive and Kidney Diseases (NIH): www.niddk.nih.gov Summary A healthy meal plan will help you control your blood glucose and maintain a healthy lifestyle. Working with a diet and respiratory care specialist (dietitian) can help you make a [...] 12/12/2005 Document Revised: 02/27/2018 Document Reviewed: 04/21/2017 [employer] Patient Education 2020 [employer] Matters. 01/30/2022 09:29:19 Diabetes Mellitus and Foot Care Diabetes Mellitus and Foot Care Foot care is an important part of your health, especially when you have diabetes. Diabetes may cause you to have problems because of poor blood flow (circulation) to your feet and legs, which can cause your skin to: Become thinner and drier operator head. Break more easily. Heal more slowly. Peel [...] 03/14/2001 Document Revised: 04/29/2018 Document Reviewed: 04/18/2017 [employer] Patient Education 2020 [employer] Matters. 01/30/2022 09:29:18 Diabetes Mellitus and Exercise Diabetes [...] plan? Your health care provider or certified pediatric nurse practitioner can help you make a plan for [...] stress. Your health care provider or certified pediatric nurse practitioner can help you make a plan for [...] 06/06/2004 Document Revised: 2017 Document Reviewed: 08/26/2016 [employer] Patient Education 2020 [employer] Mat[employer]. Follow Up Care 01/28/2022 11:57:18 With:NOMI WETZEL Address: [address] [place] [address]- Business (1) When:02/05/2022 09:40:00 Comments:For DKA & Renal Failure With:Marcelo Link Address: [address] [facility] [place] [address]- Business (1) When:02/08/2022 10:15:00 [facility]10-30-2022 Hospital Discharge instructions Patient Education 01/27/2022 [...] oral rehydration solution (ORS). This is an mjtd-jzr-wftlhfk medicine that helps return your body to [...] drinks, sports drinks, and soda. Eat bland, xcla-dq-tvtthz foods in small amounts as you are able. These foods include bananas, applesauce, rice, lean meats, toast, and crackers. Avoid alcohol. Avoid spicy or fatty foods. Medicines Take pnfa-ryv-vcblfdi and prescription medicines only as told by your health care provider. If you were prescribed an antibiotic medicine, take it as told by your health care provider. Do notstop using the antibiotic even if you start to feel better. General instructions Wash your hands often using soap and water. If soap and water are not available, use a hand social media executive. Others in the household should wash their [...] soap and water are not available, usehand social media executive. Contact a health care provider if your diarrhea gets worse or you have new symptoms. Get help right away if you have signs of dehydration. This information is not intended to replace advice given to you by your health care provider. Make sure you discuss any questions you have with your health care provider. Document Released: 03/07/2003 Document Revised: 08/03/2019 Document Reviewed: 08/21/2018 [employer] Patient Education 2020 [employer] Mat[employer]. 01/27/2022 18:13:28 Nausea and Vomiting, Adult Nausea [...] water added (diluted fruit juice). Eat bland, gwja-up-ozqqkx foods in small amounts as you are able. These foods include bananas, applesauce, rice, lean meats, toast, and crackers. Avoid fluids that contain a lot of sugar or caffeine, such as energy drinks, sports drinks, and soda. Avoid alcohol. Avoid spicy or fatty foods. General instructions Take fzyn-oxb-jeoycww and prescription medicines only as told by your health care provider. Drink enough fluid to keep your urine pale yellow. Wash your hands often using soap and water. If soap and water are not available, use hand social media executive. Make sure that all people in your [...] eating and drinking to prevent dehydration. Take atav-nsd-ktkmkfg and prescription medicines only as told by [...] 03/17/2006 Document Revised: 07/09/2019 Document Reviewed: 08/25/2018 [employer] Patient Education 2019 [employer] Mat[employer]. 01/27/2022 18:13:28 Abdominal Pain, Adult Abdominal Pain, [...] Follow these instructions at home: Medicines Take xcep-ynh-otggtkk and prescription medicines only as told by [...] Watch your condition for any changes. Take ptrb-vtd-yvabgqd and prescription medicines only as told by [...] 12/25/2005 Document Revised: 07/26/2019 Document Reviewed: 07/26/2019 [employer] Patient Education 2020 [employer] Follow Up Care 01/27/2022 14:43:33 With:London DIAZ Address: [address] [place] [id number] Business (1) When:01/30/2022 17:32:45 Comments:Return to the emergency room if your pain gets worse, you develop fever, vomiting recurs or any newsymptoms. With:Marcelo Link Address: [address], [address] [place] [address]- Business (1) When:Within 3 Day(s) [facility]10-30-2022 Evaluation + Plan noteExtracted from: Title:ED [...] PT & PTT UA With Cult Reflex [facility]08-20-2022 Hospital Discharge instructions Patient Education 11/17/2021 20:23:44 Hypoglycemia, Yczl-gf-Qvdu Hypoglycemia Hypoglycemia is when the sugar (glucose) [...] these instructions at home: General instructions Take cckh-lkh-iedmhoq and prescription medicines only as told by [...] 06/11/2010 Document Revised: 07/08/2019 Document Reviewed: 04/19/2016 [employer] Patient Education 2020 [employer] Follow Up Care 11/17/2021 17:29:57 With:Marcelo Link Address: [address] [place] [address]- Business (1) When:11/20/2021 20:12:53 [facility] No data available for this section [facility] Future Appointments Appointment Date:11/13/2021 02:45:00 PM Scheduled Provider: [facility] Eval ([facility] Future Appointments Appointment Date:04/10/2022 10:15:00 AM Scheduled Provider:London DIAZ MD Location:[facility] Digestive Health Appointment Type:[facility] Future Appointments Appointment Date:06/14/2022 12:30:00 PM Scheduled Provider: Location:[facility] Services Appointment Type:Surgery FT Future Scheduled Tests Radiology* NM Gastric Emptying Study 04/10/22 [facility] Health Evaluation + Plan note Future Appointments Appointment Date:08/01/2023 09:40:00 AM Scheduled Provider:Marcelo Call DO Location:[facility] Appointment Type:[facility] Evaluation + Plan note Future Appointments Appointment Date:08/07/2023 11:40:00 AM Scheduled Provider:Marcelo Call DO Location:[facility] Appointment Type:[facility] evaluation + Plan note Future Appointments Appointment Date:09/18/2023 02:40:00 PM Scheduled Provider:Marcelo Call DO Location:[facility] Appointment Type:[facility] Evaluation + Plan note Future Appointments Appointment Date:11/21/2023 09:30:00 AM Scheduled Provider: Location:[facility] Appointment Type: Medicare Wellness Subsequent Appointment Date:11/21/2023 10:40:00 AM Scheduled Provider:Marcelo Call DO Location:[facility] Appointment Type:[facility] evaluation note* Diagnosis Anxiety- Primary Anxiety state, unspecified [facility] in [facility] [employer] Other History general Narrative - Reported* Type Description Date Medical History DEPRESSION Medical History HTN Medical History ARTHRITIS Medical History DIABETES Medical History NEUROPATHY Surgical History BILATERAL KNEE REPLACEMENT Surgical History LEFT HIP Surgical History LEFT THUMB Surgical History HYSTERECTOMY Surgical History GALLBLADDER Surgical History TUMOR LEFT SHOULDER Hospitalization History SEE ABOVE [employer] Other Hospital Discharge instructions No data available for this section [facility] No data available for this section [facility] Summary Purpose Family History No Family [...] Care Team (unrecognized sect ion and content) Health Care Recruiter Relationship Specialty Start Date End Date Marcelo Call MD [address] [place] [address] PCP - General Family Medicine 12/19/22 INFORMATION SOURCE (unrecogn ized section and content) DATE CREATED AUTHOR 02/06/2022 [facility] DATE CREATED AUTHOR AUTHOR'S ORGANIZ ATION 08/11/2022 [facility] DATE CREATED AUTHOR AUTHOR'S ORGANIZ ATION 07/02/2023 [facility] DATE CREATED AUTHOR AUTHOR'S ORGANIZ ATION 10/03/2023 [facility] Reason for Visit (unrecogniz ed section [...] BE BASED ON THE PRIMARY CLINICAL RECORDS. [facility] provides no warranty or guarantee of the accuracy or completeness of information in this document.
[2023-10-17 10:43] LABS: Bilirubin Urine NEGATIVE (NEGATIVE); Blood Urine NEGATIVE (NEGATIVE); Clarity Urine CLEAR (CLEAR); Color Urine LT. YELLOW (YELLOW); Glucose Urine UA NEGATIVE (NEGATIVE); Ketones Urine NEGATIVE (NEGATIVE); Leukocyte Esterase Urine NEGATIVE (NEGATIVE); Nitrite Urine NEGATIVE (NEGATIVE); Protein Urine NEGATIVE (NEG/TRACE); Urobilinogen Urine 0.2 EU/dL (0.2-1.0)
[2023-10-17 10:45] LABS: Urine Microscopic Indicated NO
== END 2023-10-16 08:49 | disposition home or self-care (01) ==
LOC: LAB 08:48
PROVIDERS: PCP Family Medicine; Visit Provider Family Medicine
DX: R35.89 Other polyuria (principal)
CPT/HCPCS: 81003

== ENCOUNTER 2024-03-24 23:15 | Emergency (ER) | payer MEDICARE, MEDICAID, SELFPAY ==
[2024-03-24 23:18] VITALS: BP 112/62; PULSE 114; TEMP 37.7; O2SAT 91; BMI 26.6
--- OUTSIDE RECORDS SUMMARY | 2024-03-24 23:25 | XMS_ITS | CCD ---
Author Organization [facility] Care Team Providers Care Director Of Education And Training Name Role Phone Marcelo Call Primary Care Physician [phone] Efrem Matos Unavailable Unavailable Matthieu Ware Unavailable Unavailable Hayde Morrison Unavailable Unavailable Kady Stephenson Unavailable Unavailable Zidaimelda Angie Unavailable Unavailable Ellyn Melendez I Unavailable Unavailable Hollerajabier Ellyn Unavailable Unavailable Sienna Fernández Unavailable Unavailable Saulo, Dr. Chuck Moore Attending Yanni vailable Unavailable Primary Care Provider Unavailabl e PROVIDER, UNKNOWN Admitting Unavailable PROVIDER, UNKNOWN Attending Unavailable Ashish Chester Unavailable Vannessa Kaur Unavailable Unavailable Link Marcelo BANKS Primary Care Provider [phone] [facility] [place] Primary Care Physician Carlosab Marcelo Emerson Primary Care Physician JOAQUIM RICE Attending Unavailable BROWNJOAQUIM A Referring Unavailable BROWN, JOAQUIM A Referring Unavailable BROWNJOAQUIM A Attending Unavailable HILLS, ARNOLD D Referring Unavailable HILLS, ARNOLD D Attending Unavailable BROWN, JOAQUIM A Referring Unavailable HILLS, ARNOLD D Referring Unavailable HILLS, ARNOLD D Attending Unavailable Link, Marcelo C Attending Unavailable Link, Marcelo C Admitting Unavailable Link, Marcelo C Attending Unavailable Link, Marcelo C Admitting Unavailable Link, Marcelo C Attending Unavailable Link, Marcelo C Admitting Unavailable Link, Marcelo C Attending Unavailable Link, Marcelo C Attending Unavailable Link, Marcelo C Attending Unavailable Link, Marcelo C Attending Unavailable Link, Marcelo C Attending Unavailable Link, Marcelo C Attending Unavailable Link, Marcelo C Attending Unavailable Link, Marcelo C Attending Unavailable Link, Marcelo C Attending Unavailable Brown, Joaquim A Admitting Unavailable Brown, Joaquim A Attending Unavailable Brown, Joaquim A Referring Unavailable Beaver, Arnold D Admitting Unavailable Beaver, Arnold D Attending Unavailable Beaver, Arnold D Referring Unavailable Link, Marcelo C Admitting Unavailable Link, Marcelo C Attending Unavailable Link, Marcelo Rivers Attending Unavailable Allergies Allergy Classification Reported Allergen(s) Allergy Type Date of Onset Reaction(s) Facility bacitracin / neomycin / polymyxin b (1 source) bacitracin / neomycin / polymyxin b; Translations: [bacitracin/neomy andrea/polymyxin B topical] Drug Allergy Eruption of skin (disorder) [facility] NSAIDs (1 source) celecoxib; Translations: [celecoxib] Drug Allergy Eruption of skin (disorder) [facility] Penicillins (antibiotic) (2 sources) Amoxicillin; Translations: [amoxicillin] Drug Allergy Anaphylaxis (disorder) [facility] Comment on above: Tolerated ceftriaxon e several times in past Sulfonamides (antibiotic) (1 source) Sulfamethoxazole; Translations: [sulfamethoxazole ] Drug Allergy unknown [facility] Triclosan (1 source) Triclosan; Translations: [triclosan topical] Drug Allergy Eruption of skin (disorder) [facility] (20 sources) Adhesive bandage; Translations: [Adhesive Bandage] Drug allergy Eruption of skin (disorder) [facility] (20 sources) Amoxicillin; Translations: [amoxicillin] Drug Allergy 12-20-19 Anaphylaxis (disorder), Anaphylaxis [facility] Comment on above: Tolerated ceftriaxon e several times in past (20 sources) bacitracin / neomycin / polymyxin b; Translations: [bacitracin/neomy andrea/polymyxin B topical] Drug Allergy Eruption of skin (disorder) [facility] (20 sources) celecoxib; Translations: [celecoxib] Drug Allergy Eruption of skin (disorder) [facility] (20 sources) Penicillin; Translations: [penicillin] Drug Allergy Anaphylaxis (disorder) [facility] Comment on above: Tolerated ceftriaxon e several times in past (20 sources) Sulfamethoxazole; Translations: [sulfamethoxazole ] Drug Allergy unknown [facility] (20 sources) Triclosan; Translations: [triclosan topical] Drug Allergy Eruption of skin (disorder) [facility] (20 sources) goldbond cream; Translations: [goldbond cream] Drug allergy Eruption of skin (disorder) [facility] (4 sources) Aloe Extract Drug Allergy 12-20-19 Unknown [facility] (4 sources) Bacitracin / Polymyxin B Drug Allergy 12-20-19 23 Rash [facility] Other (4 sources) Benzalkonium Drug Allergy 04-20-19 14 Unknown [facility] Other (4 sources) corn starch Drug Allergy 12-20-19 23 Unknown [facility] Other (4 sources) dimethicone Drug Allergy 12-20-19 Unknown [facility] Other (4 sources) Kaolin Drug Allergy 12-20-19 Unknown [facility] Other (6 sources) meloxicam; Translations: [meloxicam] Drug Allergy Unknown [facility] (4 sources) pramoxine Drug Allergy 12-20-19 Unknown [facility] Other (3 sources) Zinc Oxide Drug Allergy Unknown [facility] Other (4 sources) Substance with sulfonamide structure and antibacterial mechanism of action (substance) Drug allergy 12-20-19 Unknown [facility] Other (1 source) celecoxib Drug Allergy 04-20-19 14 Rash, Unknown [facility] (1 source) meloxicam Drug Allergy 12-20-19 [facility] (1 source) Menthol Drug Allergy 12-20-19 Unknown [facility] (1 source) Triclosan Drug Allergy 12-20-19 Rash [facility] (1 source) Zinc oxide Allergy to substance 12-20-19 Unknown [facility] (1 source) Wound Dressing Adhesive Drug Allergy 12-20-19 Rash [facility] (3 sources) Acetaminophen / HYDROcodone; Translations: [Vicodin] Drug Allergy [facility] (3 sources) Latex; Translations: [Latex] Propensity to adverse reactions (disorder) [facility] (3 sources) Penicillin; Translations: [penicillin] Drug Allergy [facility] Medications Current Medications Medication Drug [...] tablet by mouth twice daily for pain [place] 325 mg-5 mg oral tablet 1 tab(s), Oral, BID for pain, Refill(s) 0 Start Date: 01/28/22 Status: Ordered acetaminophen 325 mg / oxyCODONE hydrochloride 5 mg oral tablet (20 sources) Opioid Agonist Start: 01-22-2024 take 1 tablet by mouth every twelve hours for pain acetaminophen-oxyco done 325 mg-5 mg Tab 1 tab(s), Oral, q12hr for pain, 60 tab(s), Refill(s) 0, [facility], 162.5, cm, 12/30/23 17:04:00 EDT, Height/Length Dosing, 79.1, kg, 12/30/23 17:04:00 EDT, Weight Dosing Start Date: 01/22/24 Status: Ordered Start: 12-24-2023 take 1 tablet by bhavna th every twelve hours for pain acetaminophen-oxycodone 325 mg-5 mg Tab 1 tab(s), Oral, q12hr for pain, 60 tab(s), Refill(s) 0, [facility], 162.5, cm, 11/28/23 10:52:00 EDT, Height/Length Dosing, 77.3, kg, 11/28/23 10:52:00 EDT, Weight Dosing Start Date: 12/24/23 Status: Ordered Start: 08-14-2023 take 1 tablet by bhavna th every twelve hours for pain acetaminophen-oxycodone 325 mg-5 mg Tab 1 tab(s), Oral, q12hr for pain, 60 tab(s), Refill(s) 0, 162.5, cm, 08/07/23 11:49:00 EDT, Height/Length Dosing, 70.9, kg, 08/07/23 11:49:00 EDT, Weight Dosing Start Date: 08/14/23 Status: Ordered Start: 07-02-2023 take 1 tablet by bhavna th every eight hours Percocet 5 mg-325 mg oral tablet 1 tab(s), Oral, q8hr, 90 tab(s), Refill(s) 0, [facility], 162.5, cm, 07/01/23 14:10:00 EDT, Height/Length Dosing, 68.8, kg, 07/01/23 14:10:00 EDT, Weight Dosing Start Date: 07/02/23 Status: Ordered Start: 07-01-2023 take 1 tablet by bhavna every six hours Percocet 5 mg-325 mg oral tablet 1 tab(s), Oral, q6hr, 120 tab(s), [facility](s) 0, [facility], [facility], 07/01/23 14:10:00 EDT, Height/Length Dosing, 68.8, kg, 07/01/23 14:10:00 EDT, Weight Dosing Start Date: 07/01/23 Status: Ordered Start: 04-11-2023 take 1 tablet by [facility] every four hours for pain Percocet [...] M19.9 hip fracture, 80 tab(s), Refill(s) 0, [facility], 162, cm, 11/24/22 0:45:00 EDT, [...] for 3 day(s), 12 tab(s), Refill(s) 0, [id number], 165, cm, 03/13/22 16:40:00 EST, Height/Length Dosing, 73.6, kg, 03/13/22 16:40:00 EST, Weight Dosing Start Date: 03/13/22 Stop Date: 03/16/22 Status: Ordered take 1 tablet by bhavna th every four hours oxyCODONE-Acetaminophen 10-325 MG 1 tablet as needed Orally every 4 hrs Active ascorbic acid 500 mg oral tablet (20 sources) Vitamin C Start: 11-27-2022 take 1 tablet by mouth twice daily ascorbic acid 500 mg Tab 500 mg = 1 tab(s), Oral, BID, Refills(s) 0 Start Date: 11/27/22 Status: [facility] as[facility]bic acid (Vitamin C) 500 MG ER [...] 0 Active atorvastatin 40 mg oral tablet (20 sources) HMG-CoA Reductase Inhibitor Start: 02-13-2023 take 1 tablet by mouth once daily atorvastatin 40 mg Tab 40 mg = 1 tab(s), Oral, Daily, Refills(s) 0, High cholesterol Start Date: 02/13/23 Status: Ordered bisacodyl 5 mg delayed release oral tablet (20 sources) Stimulant Laxative Start: 11-27-2022 bisacodyl (Dulcolax) 5 MG EC tablet Take 10 mg by mouth. 0 11/27/2022 Active Start: 11-27-2022 take 2 tablets by mo uth once as needed for constipation bisacodyl 5 [...] Active Start: 05-23-2021 take 1 tablet by bhavna th every twenty-four hours buPROPion 150 mg/24 hours ER Tab 300 mg = 2 tab(s), Oral, q24hr, # 30 tab(s), Refills(s) 0 Start Date: 05/23/21 Status: Ordered Start: 05-23-2021 take 1 tablet by bhavna th every twenty-four hours buPROPion 150 mg/24 hours ER Tab 150 mg = 1 tab(s), Oral, q24hr, # 30 tab(s), Refills(s) 0 Start Date: 05/23/21 Status: Ordered take 1 tablet by bhavna th every twelve hours buPROPion HCl ER (SR) 150 MG 1 tablet Orally BID Active BuPROPion (Eqv-Wellbutrin SR) 150 mg/12 hours oral tablet, extended release (20 sources) Start: 12-03-2022 BuPROPion (Eqv-Wellbutrin SR) 150 [...] Status: Ordered celecoxib 100 mg oral capsule (20 sources) Nonsteroidal Anti-inflammatory Drug Start: 12-24-2022 take [...] q8hr, # 30 cap(s), Refills(s) 0, Pharmacy: [id number], 163, cm, 05/23/21 14:18:00 EST, Height/Length Dosing, 82, kg, 05/23/21 14:18:00 EST, Weight Dosing Start Date: 05/25/21 Status: Ordered ciprofloxacin 500 mg oral tablet (7 sources) Quinolone Antimicrobial Start: 12-30-2023 End: 01-09-2024 take 1 tablet by mouth every twelve hours ciprofloxacin 500 mg Tab 500 mg = 1 tab(s), Oral, q12hr, X 10 day(s), # 20 tab(s), Refills(s) 0, [facility], cm, 12/30/23 17:04:00 EDT, Height/Length Dosing, 79.1, kg, 12/30/23 17:04:00 EDT, Weight Dosing Start Date: 12/30/23 Stop Date: 01/09/24 Status: Ordered Start: 02-13-2023 take 1 tablet by bhavna th every twelve hours Cipro 500 mg Tab [...] Intravenous Active diazePAM 2 mg oral tablet (20 sources) Benzodiazepine Start: 02-04-2024 take 2 tablets by mouth three times daily as needed for anxiety diazepam 2 mg Tab 4 mg = 2 tab(s), Oral, TID, PRN for anxiety, # 180 tab(s), Refills(s) 0, Pharmacy: [facility], 162.5, cm, 12/30/23 17:04:00 EDT, Height/Length Dosing, 79.1, kg, 12/30/23 17:04:00 EDT, Weight Dosing Start Date: 02/04/24 Status: Ordered Start: 12-23-2023 take 2 tablets by [facility] three times daily as needed for anxiety diazepam 2 mg Tab 4 mg = 2 tab(s), Oral, TID, PRN for anxiety, # 180 tab(s), Refills(s) 0, Pharmacy: [facility], 162.5, cm, 11/28/23 10:52:00 EDT, Height/Length Dosing, 77.3, kg, 11/28/23 10:52:00 EDT, Weight Dosing Start Date: 12/23/23 Status: Ordered Start: 11-06-2023 take 2 tablets by [facility] three times daily as needed for anxiety diazepam 2 mg Tab 4 mg = 2 tab(s), Oral, TID, PRN for anxiety, # 180 tab(s), Refills(s) 0, Pharmacy: [facility], 162.5, cm, 11/06/23 14:42:00 EDT, Height/Length Dosing, 73.7, kg, 11/06/23 14:42:00 EDT, Weight Dosing Start Date: 11/07/23 Status: Ordered Start: 08-04-2023 Valium 2 mg Ta b 2 mg = 1 tab(s), Oral, TID, Every 8 hours for management of anxiety, # 90 tab(s), Refills(s) 0, Pharmacy: [facility], 162.5, cm, 07/01/23 14:10:00 EDT, Height/Length Dosing, 68.8, kg, 07/01/23 14:10:00 EDT, Weight Dosing Start Date: 08/04/23 Status: Ordered Start: 07-01-2023 Valium 2 mg Ta b 2 mg = 1 tab(s), Oral, TID, Every 8 hours for management of anxiety, # 90 tab(s), Refills(s) 0, Pharmacy: [facility], 162.5, cm, 07/01/23 14:10:00 EDT, Height/Length Dosing, [...] Active Start: 12-24-2022 take 1 tablet by bhavna th every eight hours as needed for muscle spasms Valium 5 mg Tab 5 mg = 1 tab(s), Oral, q8hr, PRN Spasm, # 20 tab(s), Refills(s) 0 Start Date: 12/24/22 Status: Ordered take 1 tablet by bhavna th every twenty-four hours diazePAM 5 MG 1 tablet as needed Orally Once a day Active dicyclomine hydrochloride 10 mg oral capsule (15 sources) Anticholinergic Start: 02-12-2024 take 1 capsule by mouth four times daily Bentyl 10 mg Cap 10 mg = 1 cap(s), Oral, QID, # 360 cap(s), Refills(s) 1, Pharmacy: [facility], 162.5, cm, 12/30/23 17:04:00 EDT, Height/Length Dosing, 79.1, kg, 12/30/23 17:04:00 EDT, Weight Dosing Start Date: 02/12/24 Status: Ordered Start: 12-23-2023 take 1 capsule by [facility] four times daily Bentyl 10 mg Cap 10 mg = 1 cap(s), Oral, QID, # 120 cap(s), Refills(s) 1, Pharmacy: [facility], 162.5, cm, 11/28/23 10:52:00 EDT, Height/Length Dosing, 77.3, kg, 11/28/23 10:52:00 EDT, Weight Dosing Start Date: 12/23/23 Status: Ordered Start: 08-12-2023 take 1 capsule by [facility] four times daily Bentyl 10 mg Cap 10 mg = 1 cap(s), Oral, QID, # 120 cap(s), Refills(s) 1, Pharmacy: [facility], 162.5, cm, 08/07/23 11:49:00 EDT, Height/Length Dosing, 70.9, kg, 08/07/23 11:49:00 EDT, Weight Dosing Start Date: 08/12/23 Status: Ordered Start: 08-05-2023 take 1 capsule by [facility] four times daily Bentyl 10 mg Cap 10 mg = 1 cap(s), Oral, QID, # 120 cap(s), Refills(s) 1, Pharmacy: [facility], 162.5, cm, 07/01/23 14:10:00 EDT, Height/Length Dosing, [...] day(s), # 28 cap(s), Refills(s) 0, Pharmacy: [id number], 165, cm, 03/13/22 16:40:00 EST, Height/Length [...] qWeek, # 2 mL, Refills(s) 11, [facility], 162.5, cm, 07/01/23 14:10:00 EDT, [...] Ordered Start: 05-23-2021 take 1 capsule by [facility] once daily esomeprazole 20 mg Cap-DR 20 mg = 1 cap(s), Oral, Daily, # 30 cap(s), Refills(s) 0, Control of stomach acid Start Date: 05/23/21 Status: Ordered take 1 capsule by [facility] once daily in the morning esomeprazole (NexIUM) [address] capsule TAKE 1 CAPSULE BY MOUTH EVERY MORNING prior to any food or medications 0 Active ferrous sulfate 325 mg oral tablet (20 sources) Start: 11-27-2022 take 1 tablet by mouth once daily ferrous sulfate 325 mg Tab 325 mg = 1 tab(s), Oral, Daily, Refills(s) 0 Start Date: 11/27/22 Status: Ordered take 1 tablet by mouth three vadim es weekly Ferrous Sulfate 325 (65 Fe) MG 1 tablet Orally Three times a Week Active gabapentin 600 mg oral tablet (20 sources) Anti-epileptic Agent Start: 03-04-2024 take 1 tablet by mouth three times daily gabapentin 600 mg Tab 600 mg = 1 tab(s), Oral, TID, # 90 tab(s), Refills(s) 2, Pharmacy: [facility], 162.5, cm, 03/04/24 11:49:00 EST, Height/Length Dosing, 79.1, kg, 03/04/24 11:49:00 EST, Weight Dosing Start Date: 03/04/24 Status: Ordered Start: 02-12-2024 take 1 capsule by [facility] three times daily gabapentin 300 mg Cap 300 mg = 1 cap(s), Oral, TID, # 270 cap(s), Refills(s) 1, Pharmacy: [facility], 162.5, cm, 12/30/23 17:04:00 EDT, Height/Length Dosing, 79.1, kg, 12/30/23 17:04:00 EDT, Weight Dosing Start Date: 02/12/24 Status: Ordered Start: 08-01-2023 take 1 capsule by [facility] three times daily gabapentin 300 mg Cap 300 mg = 1 cap(s), Oral, TID, # 90 cap(s), Refills(s) 1, Pharmacy: [facility], 162.5, cm, 11/06/23 14:42:00 EDT, Height/Length Dosing, 73.7, kg, 11/06/23 14:42:00 EDT, Weight Dosing Start Date: 11/07/23 Status: Ordered Start: 07-01-2023 take 1 capsule by [facility] three times daily gabapentin 300 mg Cap 300 mg = 1 cap(s), Oral, TID, # 90 cap(s), Refills(s) 1, Pharmacy: [facility], 162.5, cm, 07/01/23 14:10:00 EDT, Height/Length Dosing, 68.8, kg, 07/01/23 14:10:00 EDT, Weight Dosing Start Date: 07/01/23 Status: Ordered Start: 01-28-2022 take 800 mg by mouth three times daily gabapentin 800 mg, Oral, TID, Refills(s) 0, Neuropathy Start Date: 01/28/22 Status: Ordered Start: 02-26-2018 take 1 capsule by [facility] three times daily gabapentin 300 mg [...] bedtime), # 15 mL, Refills(s) 5, Pharmacy: [facility], 162.5, cm, 07/01/23 14:10:00 EDT, Height/Length Dosing, [...] Daily, # 30 tab(s), Refills(s) 1, Pharmacy: [facility], 162.5, cm, 07/01/23 14:10:00 EDT, Height/Length Dosing, 68.8, kg, 07/01/23 14:10:00 EDT, Weight Dosing Start Date: 07/01/23 Status: Ordered Start: 02-02-2022 End: 11-29-2022 lisinopril 20 mg Tab 20 mg = 1 tab(s), Tab, Oral, Start date 11/29/22 9:00:00 EDT, 11/28/22 21:10:00 EDT Start Date: 11/29/22 Stop Date: 11/29/22 Status: Completed Start: 08-14-2020 take 1 tablet by bhavna th once daily lisinopril 40 mg Tab [...] 0 Active nystatin 100 unt/mg topical powder (14 sources) Polyene Antifungal Start: 02-03-2024 nystatin Top 100,000 units/g Pwdr 1 rhonda, Topical, BID, 60 gram, Refill(s) 2, [facility], 162.5, cm, 12/30/23 17:04:00 EDT, Height/Length Dosing, 79.1, kg, 12/30/23 17:04:00 EDT, Weight Dosing Start Date: 02/03/24 Status: Ordered Start: 08-29-2023 nystatin Top 1 00,000 units/g Pwdr 1 rhonda, Topical, BID, 60 gram, Refill(s) 2, [facility].5, cm, 08/07/23 11:49:00 EDT, Height/Length Dosing, 70.9, kg, 08/07/23 11:49:00 EDT, Weight Dosing Start Date: 08/29/23 Status: Ordered Start: 12-19-2022 nystatin Top 1 00,000 units/g Crm 15 gram 1 rhonda, Topical, BID, 15 gram, Refill(s) 0 Start Date: 12/19/22 Status: Ordered omeprazole 20 mg delayed release oral capsule (19 sources) Proton Pump Inhibitor Start: 02-13-2023 take [...] 0 Active ondansetron 4 mg oral tablet (15 sources) Serotonin-3 Receptor Antagonist Start: 07-01-2023 take 1 tablet by mouth every six hours as needed for nausea ondansetron 4 mg Tab 4 mg = 1 tab(s), Oral, q6hr, PRN Nausea/Vomiting, # 90 tab(s), Refills(s) 1, Pharmacy: [facility], 162.5, cm, 07/01/23 14:10:00 EDT, Height/Length Dosing, 68.8, kg, 07/01/23 14:10:00 EDT, Weight Dosing Start Date: 07/01/23 Status: Ordered 24 hr oxybutynin chloride 5 mg extended release oral tablet (13 sources) Cholinergic Muscarinic Antagonist Start: 07-01-2023 take 1 tablet by mouth once daily oxybutynin 5 mg ER Tab 5 mg = 1 tab(s), Oral, Daily, # 30 tab(s), Refills(s) 1, Pharmacy: [facility], 162.5, cm, 07/01/23 14:10:00 EDT, Height/Length Dosing, [...] Ordered Start: 08-14-2020 take 1 tablet by bhavna five times daily Paxil 10 mg Tab 50 mg = 5 tab(s), Oral, Daily, one tablet 5 times a day, Depression Start Date: 08/14/20 Status: Ordered Start: 08-14-2020 take 5 tablets by mo [facility] once daily Paxil 10 mg Tab 50 mg = 5 tab(s), Oral, Daily, Depression Start Date: 08/14/20 Status: [facility] reader (12 sources) Start: 01-22-2024 reader reader, See Instructions, 1 EA, 0, 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, [facility], Supply, 162.5, cm, 12/30/23 17:04:00 EDT, Height/Length Dosing, 79.1, kg, 12/30/23 17:04:00 EDT, Weight Dosing Start Date: 01/22/24 Status: Ordered Start: 07-05-2023 reader reader, See Instructions, 1 EA, 0, 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, [facility], [facility], 162.5, cm, 07/01/23 14:10:00 EDT, [...] Supply Start Date: 12/24/22 Status: Ordered sensors (12 sources) Start: 01-22-2024 sensors sensors, See Instructions, 2 EA, 4, francheska 2 sensors change q 14 days E11.42, [facility], 162.5, cm, 12/30/23 17:04:00 EDT, Height/Length Dosing, 79.1, kg, 12/30/23 17:04:00 EDT, Weight Dosing Start Date: 01/22/24 Status: Ordered Start: 07-05-2023 sensors sensor s, See Instructions, 2 EA, 4, francheska 2 sensors change q 14 days, [facility], 162.5, cm, 07/01/23 14:10:00 EDT, Height/Length Dosing, 68.8, kg, 07/01/23 14:10:00 EDT, Weight Dosing Start Date: 07/05/23 Status: Ordered traZODone hydrochloride 50 mg oral tablet (20 sources) Serotonin Reuptake Inhibitor Start: 12-30-2023 take 1 tablet by mouth once daily at bedtime traZODONE 50 mg Tab 50 mg = 1 tab(s), Oral, Once a day (at bedtime), # 30 tab(s), Refills(s) 5, Pharmacy: [facility], 162.5, cm, 12/30/23 17:04:00 EDT, Height/Length Dosing, 79.1, kg, 12/30/23 17:04:00 EDT, Weight Dosing Start Date: 12/30/23 Status: Ordered Start: 08-07-2023 traZODONE 50 m g Tab 25 mg = 0.5 tab(s), Oral, Once a day (at bedtime), # 15 tab(s), Refills(s) 3, Pharmacy: [facility], 162.5, cm, 08/07/23 11:49:00 EDT, Height/Length Dosing, 70.9, kg, 08/07/23 11:49:00 EDT, Weight Dosing Start Date: 08/07/23 Status: Ordered Start: 04-11-2023 traZODONE 50 m g Tab 25 mg = 0.5 tab(s), Oral, Daily, Refills(s) 0, Depression Start Date: 04/11/23 Status: Ordered Start: 04-11-2023 take 1 tablet by bhavna once daily at bedtime traZODONE 100 mg Tab 100 mg = 1 tab(s), Oral, Daily, At bedtime, # 30 tab(s), Refills(s) 1, Pharmacy: [facility], 162.5, cm, 07/01/23 14:10:00 EDT, Height/Length Dosing, 68.8, kg, 07/01/23 14:10:00 EDT, Weight Dosing Start Date: 07/01/23 Status: Ordered Start: 05-23-2021 take 2 tablets by mo [facility] once daily at bedtime traZODONE 100 mg Tab 200 mg = 2 tab(s), Oral, Once a day (at bedtime), # 90 tab(s), Refills(s) 0, Insomnia Start Date: 05/23/21 Status: Ordered take 1 tablet by bhavna every twenty-four hours traZODone HCl 100 MG 1 tablet at bedtime Orally Once a day Active valACYclovir 1000 mg oral tablet (1 source) Herpesvirus Nucleoside Analog DNA Polymerase Inhibitor, Herpes Simplex Virus Nucleoside Analog DNA Polymerase Inhibitor, Herpes Zoster Virus Nucleoside Analog DNA Polymerase Inhibitor Start: 03-04-2024 End: 03-11-2024 take 1 tablet by mouth every eight hours Valtrex 1 g Tab 1 gm = 1 tab(s), Oral, q8hr, X 7 day(s), # 21 tab(s), Refills(s) 0, Pharmacy: [facility], 162.5, cm, 03/04/24 11:49:00 EST, Height/Length Dosing, 79.1, kg, 03/04/24 11:49:00 EST, Weight Dosing Start Date: 03/04/24 Stop Date: 03/11/24 Status: Ordered Zofran ODT 4 mg Tab-Dis (1 source) Start: 11-21-2021 take 1 tablet by mouth every eight hours as needed for nausea Zofran ODT 4 mg Tab-Dis 4 mg = 1 tab(s), Oral, q8hr, PRN Nausea/Vomiting, # 16 tab(s), Refills(s) 0, Pharmacy: [id number], 162.6, cm, 11/21/21 19:39:00 EDT, Height/Length Dosing, 81.8, kg, 11/21/21 19:39:00 EDT, Weight Dosing Start Date: 11/21/21 Status: Ordered Completed/Discontinued Medications Medication Drug Class(es) Dates Sig (Normalized) Sig (Original) Assure Prism Multi Blood Glucose Monitoring System (1 source) Start: 01-15-2024 Assure Prism Multi Blood Glucose Monitoring System Assure Prism Multi Blood Glucose Monitoring System, See Instructions, 1 kit(s), 2, To check [facility], [facility], 162.5, cm, 12/30/23 17:04:00 EDT, Height/Length Dosing, 79.1, kg, 12/30/23 17:04:00 EDT, Weight Dosing Start Date: 01/15/24 Status: Ordered Humalog (11 sources) Insulin Analog Start: 12-24-2022 [...] follow instructions per packaging and physician's handout, [facility], 165, cm, 04/10/22 11:05:00 EST, Height/Length Dosing, 70.4, kg, 04/10/22 11:05:00 EST, Weight Dosing Start Date: 04/10/22 Status: Ordered potassium chloride 20 meq extended release oral tablet (20 sources) Start: 02-13-2023 take 2 tablets by mouth once daily potassium chloride 20 mEq ER Tab 40 mEq = 2 tab(s), Oral, Daily, Refills(s) 0, Prophylaxis Start Date: 02/13/23 Status: Ordered Start: 02-13-2023 take 1 tablet by bhavna once daily potassium chloride 20 mEq ER Tab 20 mEq = 1 tab(s), Oral, Daily, Refills(s) 0, Prophylaxis Start Date: 02/13/23 Status: Ordered take 20 mEq by mouth in the morning potassium chloride (Klor-Con) 20 MEQ packet Take 20 mEq by mouth in the morning and 20 mEq before bedtime. 0 Active take 2 tablets by mo [facility] every twenty-four hours Potassium Chloride [...] Anemia 11-26-2017 Episodic Deficiency and other anemia (20 sources) Iron deficiency anemia; Translations: [Iron deficiency anemia, unspecified] Onset: 3 Episodic Diabetes mellitus with complications (20 sources) Diabetic peripheral neuropathy; Translations: [Hypoglycemia due to type 2 diabetes mellitus] Onset: 2 11-19-2019 Chronic Diabetes mellitus without complication (20 sources) Diabetes mellitus; Translations: [Type 2 diabetes mellitus] Onset: 2 01-11-2021 Chronic Comment on above: IDDM linked DM with HLD p er OP CDI policy. Disorders of lipid metabolism (2 sources) Hyperlipidemia; Translations: [Hyperlipidemia, unspecified] Onset: 3 Chronic Diverticulosis and diverticulitis (20 sources) Diverticulitis 03-23-2020 Chronic E Codes: Fall (6 sources) Fall; Translations: [Unspecified fall, initial encounter] [...] Episodic Fracture of neck of femur (hip) (20 sources) Closed fracture of neck of femur; Translations: [Fracture of unspecified part of neck of unspecified femur, initial encounter for closed fracture] Onset: 3 Episodic Genitourinary symptoms and ill-defined conditions (1 source) Dysuria; Translations: [Dysuria] Onset: 4 Episodic Infective arthritis and osteomyelitis (except that caused by tuberculosis or sexually transmitted disease) (1 source) Bacterial arthritis; Translations: [Pyogenic arthritis, unspecified] Onset: 3 Episodic Mood disorders (20 sources) Depressive disorder; Translations: [Recurrent major depression in partial remission] Onset: 4 12-22-2018 Chronic Comment on above: added per 03/03/2024 query response. 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] Onset: 4 Episodic Other and unspecified benign neoplasm (20 [...] Chronic Other diseases of bladder and urethra (4 sources) Detrusor overactivity; Translations: [Overactive bladder] Onset: 4 Chronic Other diseases of bladder and urethra (13 sources) Overactive bladder 07-01-2023 Chronic Other gastrointestinal [...] conditions due to external causes (2 sources) History of fall; Translations: [History of falling] Onset: 4 Episodic Other nervous system disorders (20 sources) Neuropathy 12-22-2018 Chronic Other nervous system disorders (6 sources) Chronic pain; Translations: [Other chronic pain] [...] nutritional; endocrine; and metabolic disorders (8 sources) Overweight in adulthood with body mass index of 25 or more but less than 30; Translations: [Body mass index (BMI) 26.0-26.9, adult] Onset: 4 Episodic Other nutritional; endocrine; and metabolic disorders (1 source) Overweight; Translations: [Overweight] Onset: 4 Episodic Other screening for suspected conditions (not mental disorders or infectious disease) (20 sources) Full blood count abnormal 08-14-2020 Episodic Other skin disorders (20 sources) Mass of neck 12-29-2018 Episodic Residual codes; unclassified (20 sources) Chronic pain 07-21-2019 Episodic Residual codes; unclassified (20 sources) Insomnia Resolved: 3 10-31-2017 Episodic Residual codes; unclassified (2 sources) Procedure carried out on subject; Translations: [Encounter for prophylactic measures, unspecified] Onset: 2 Episodic Residual codes; unclassified (8 sources) Patient encounter status; Translations: [Other specified [...] Translations: [Hypothyroidism, unspecified] Onset: 3 12-22-2018 Chronic Unclassified (1 source) Extended spectrum beta-lactamase producing bacteria carrier Onset: 4 01-07-2024 Comment on above: ESBL E coli in urine 12/30/2023 Unclassified (1 source) Long-term current use of insulin 03-03-2024 Comment on above: Current Medication L ist includes Lantus. added per OP CDI policy. Urinary tract infections (20 sources) Urinary tract infectious disease; Translations: [Urinary tract infection, site not specified] Onset: 3 Episodic Viral infection (16 sources) Herpes zoster with complication; Translations: [Zoster with other complications] Onset: 4 Episodic Past or Other Problems Problem Classification Problem Date Documented Da te Episodic/Chronic Calculus of urinary tract (20 sources) Kidney stone Resolved: 10-30-2010 10-31-2017 Episodic Results Test Name Value Interpretation Reference Range Facil ity Pre-Visit Planningon 024 Pre-Visit Planning Pre-Visit Planning From: Leila Post To: Marcelo Call DO; Sent: 03/03/2024 12:30:33 EST Subject: Pre-Visit Planning Due Date/Time: 03/03/2024 12:30:00 EST Caller Name: FARTUN SCHNEIDER; Caller Number: H Nh Dr. Call. During a pre-visit planning chart review, I noted the following documentation in the medical record: Current Problem List: Depression with anxiety (Other specified anxiety disorders) and Insomnia. Current Medication List: bupropion, diazepam, paroxetine, and trazodone. PHQ-9 Score: =19 on 12/30/2023. 04/14/2023 [facility] Records (page 7): Bipolar disorder, unspecified. Based on your medical judgment, can you please clarify which, if any, of the following conditions are present? I can update the Chronic Problem List with your response if you would like. Major Depressive Disorder, Single Episode ??? Major depressive disorder, single episode, mild ??? Major depressive disorder, single episode, moderate ??? Major depressive disorder, single episode, severe without mention of psychotic behavior ??? Major depressive disorder, single episode, severe specified as with psychotic behavior ??? Major depressive disorder, single episode, in partial remission ??? Major depressive disorder, single episode in full remission Major Depressive Disorder, Recurrent ??? Major depressive disorder, recurrent, mild ??? Major depressive disorder, recurrent, moderate ??? Major depressive disorder, recurrent, severe without mention of psychotic behavior ??? Major depressive disorder, recurrent, severe specified as with psychotic behavior ??? Major depressive disorder, recurrent, in partial remission ??? Major depressive disorder, recurrent, in full remission -Bipolar disorder -Other (Please Specify): In responding to this request, please exercise your independent professional judgement. The fact that a question is asked does not imply that any particular answer is desired or expected. If you have any questions, please feel free to contact me at extension [phone]. Thank you! Leila Post LPN Clinical Supervisor [employer] [place] [address] Extension: [email or web address] Normal [facility] XR Hip 2-3 Views Righton XR Hip 2-3 Views Right Exam Date/Time: 01/01/2024 11:05 EDT Reason for Exam: fall;Fall Report IMPRESSION: NO ACUTE OSSEOUS ABNORMALITY. EXAMINATION: XR Hip 2-3 Views Right HISTORY: Hip pain since a fall COMPARISONS: Radiographs 12/20/2022 TECHNIQUE: Frontal and lateral views of the hip. FINDINGS: Postsurgical changes of right hip arthroplasty. No periprosthetic lucency/fracture. No hip dislocation. Visualized bones of the pelvis are within normal limits. Soft tissues are within normal limits. Ordering Provider: Marcelo Call FINAL REPORT Dictated: 01/05/2024 1:29 pm Jelani Strickland DO Signed (Electronic Signature): 01/05/2024 1:29 pm Signed by: Jelani Strickland DO Transcribed by: ARTIS Technologist: JAVIER Technical Comments Radiation Dose: Ka,r in mGy = na DAP = na Normal [facility] XR Knee Complete 4+ Views Tess garsia 01-05-2024 XR Knee Complete 4+ Views Right Exam Date/Time: 01/01/2024 11:05 EDT Reason for Exam: fall;Fall Report IMPRESSION: NO ACUTE OSSEOUS ABNORMALITY. EXAM: XR Knee Complete 4+ Views Right HISTORY: Knee pain TECHNIQUE: AP, lateral and oblique views of the knee obtained. COMPARISON: Radiographs 11/09/2021 FINDINGS: Postsurgical changes of total knee arthroplasty. No periprosthetic lucency/fracture. No knee joint effusion. Soft tissues are within normal limits. Ordering Provider: Marcelo Call FINAL REPORT Dictated: 01/05/2024 2:17 pm Jelani Strickland DO Signed (Electronic Signature): 01/05/2024 2:17 pm Signed by: Jelani Strickland DO Transcribed by: ARTIS Technologist: JAVIER Technical Comments Radiation Dose: Ka,r in mGy = na DAP = na Normal [facility] C Urineon 01-02-2024 Bacteria identified Cx Nom (U) Microbiology PROCEDURE: Urine Culture [R1] SOURCE: U Random BODY SITE: COLLECTED DATE/TIME: 12/30/2023 17:12 EDT RECEIVED DATE/TIME: 12/31/2023 16:02 EDT START DATE/TIME: 12/31/2023 16:02 EDT FREE TEXT SOURCE: Marcelo Call DO, DO, Adam C FINAL REPORTS Final Report [] Verified Date/Time: 01/02/2024 10:53 EDT >100,000 cfu/ml Escherichia coli ESBL SUSCEPTIBILITY RESULTS LEGEND: S=Susceptible, N/R=Not Reported, Blank=Data not available, or drug not advisable or tested, I=Intermediate, ESBL=Extended spectrum beta-lactamase, R=Resistant, TFG=Thymidine-depende nt strain, ALBA=Beta-lactamase positive, ITZEL=mcg/m;(mg/L), S*=Predicted susceptible interp, R*=Predicted resistant interp ECESBL Antibiotic ITZEL Dilutn ITZEL Interp Ampicillin >16 R* Ampicillin/ <=8/4 S Sulbactam Aztreonam 16 ESBL Cefazolin >16 R* Cefepime >16 R* Ceftazidime 8 ESBL Ceftazidime/ <=8 S Avibactam Ceftriaxone >2 ESBL Cefuroxime >16 R* Ciprofloxacin >2 R Ertapenem <=0.5 S Gentamicin <=2 S Levofloxacin >4 R Meropenem <=1 S Nitrofurantoin <=32 S Piperacillin/ <=8 S Tazobactam Tetracycline <=4 S Tobramycin <=2 S Trimethoprim/ <=2/38 S Sulfa Performing Locations R1: This test was performed at: [facility], [address] [place] [address], [facility]- , , [facility] Comment on above: Performed By: #### [id number] #### [facility] [address] [place] [address] Ambulatory Visit Summaryon 1 Ambulatory Visit Summary Ambulatory Visit Summary FARTUN SCHNEIDER :1955 Visit Date:12/30/2023 Ambulatory Visit Instructions Your Diagnosis Dysuria Accidental fall Overactive bladder BMI 29.0-29.9,adult Non-smoker Obesity At risk for falls Your Care Team Attending Physician - Marcelo Call DO Primary Care Physician - Marcelo Call DO This Is Your Medications List [facility] Prescription (reader) [facility] Prescription (sensors) acetaminophen-oxycodo ne (acetaminophen-oxycod one 325 mg-5 mg Tab) ascorbic acid (ascorbic acid 500 mg Tab) atorvastatin (atorvastatin 40 mg Tab) bisacodyl (bisacodyl 5 mg Oral EC Tab) buPROPion (BuPROPion (Eqv-Wellbutrin SR) 150 mg/12 hours oral tablet, extended release) carvedilol (carvedilol 12.5 mg Tab) celecoxib (CeleBREX 100 mg Cap) ciprofloxacin (ciprofloxacin 500 mg Tab) diazepam (diazepam 2 mg Tab) dicyclomine (Bentyl 10 mg Cap) dulaglutide (dulaglutide 0.75 mg/0.5 mL subcutaneous solution) ferrous sulfate (ferrous sulfate 325 mg Tab) gabapentin (gabapentin 300 mg Cap) insulin glargine (Lantus 100 units/mL Injection-Insulin) levothyroxine (levothyroxine 112 mcg (0.112 mg) Tab) lisinopril (lisinopril 10 mg Tab) nystatin topical (nystatin Top 100,000 units/g Pwdr) omeprazole (omeprazole 20 mg Cap-DR) ondansetron (ondansetron 4 mg Tab) oxybutynin (oxybutynin 5 mg ER Tab) paroxetine (paroxetine 40 mg Tab) potassium chloride (potassium chloride 20 mEq ER Tab) trazodone (traZODONE 50 mg Tab) Procedures Performed Aspiration of hip joint (04/11/2023), Aspiration of hip joint (02/13/2023), Repair of fracture of hip by nailing using fluoroscopic guidance (12/20/2022), History of hemiarthroplasty of right hip (11/25/2022), Esophagogastroduodeno scopy (05/09/2022), Arthroscopy of shoulder (08/16/2020), Excision of mass of neck (03/11/2019), Arthroplasty of finger (03/10/2018), percutaneous pinning left hip (10/03/2014), left total knee replacement with hardware removal (12/07/2013), right total knee arthroplasty (06/08/2013), Right knee (12/14/2012), BASILAR ARTHROPLASTY OF THUMB, Cyst - diagnostic aspiration, ESWL of kidney, gallbladder removed, jaw surgery, left knee ORIF, RENY BSO - Total abdominal hysterectomy and bilateral salpingo-oophorectomy , 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. Discharge Vitals Heart Rate (Peripheral) 60 Blood Pressure 106/64 Height 162.5 cm Height 64 in Weight 79.1 kg Weight 174.02 lb BMI 29.96 What to do next Scheduled Follow-Up Appointments Friday 10:00 AM EST With: Marcelo Call DO Where: [facility] [address] [place] [address]- [address]24 11:00 AM EDT With: Where: [facility] [address] [place] [address]- You Need to Schedule the Following Appointments Follow Up with Marcelo Call DO, FAM When: Within 4 weeks Comments: 4 WEEKS FOLLOWUP Where: [address] [place] [address]- You Need to Complete the Following XR Hip 2-3 Views Right, 12/30/23, Routine, Order for future visit, Transport Mode: Ambulatory, Reason: Fall, No, Accidental fall, pp_set_radiology_subs pecialty, Not Required, [facility] XR Knee Complete 4+ Views Right, 12/30/23, Routine, Order for future visit, Transport Mode: Ambulatory, Reason: Fall, No, Accidental fall, pp_set_radiology_subs pecialty, Not Required, [facility] Medications What How Much When Why Instructions New ciprofloxacin (ciprofloxacin 500 mg Tab) 1 Tablets By Mouth Every 12 hours Duration: 10 Days Pickup at [facility] Changed trazodone (traZODONE 50 mg Tab) 1 Tablets By Mouth Once a day (at bedtime) Pickup at [facility] Unchanged acetaminophen-oxycodo ne (acetaminophen-oxycod one 325 mg-5 mg Tab) 1 Tablets By Mouth Every 12 hours as needed for for pain Unchanged ascorbic acid (ascorbic acid 500 mg Tab) 1 Tablets By Mouth 2 times a day Unchanged atorvastatin (atorvastatin 40 mg Tab) 1 Tablets By Mouth Every day Unchanged bisacodyl (bisacodyl 5 mg Oral EC Tab) 2 Tablets By Mouth Once as needed for Constipation Unchanged buPROPion (BuPROPion (Eqv-Wellbutrin SR) 150 mg/ 12 hours oral tablet, extended release) 1 Tablets By Mouth 2 times a day Unchanged carvedilol (carvedilol 12.5 mg Tab) 1 Tablets By Mouth 2 times a day Unchanged celecoxib (CeleBREX 100 mg Cap) 1 Capsules By Mouth 2 times a day as needed for Pain Unchanged diazepam (diazepam 2 mg Tab) 2 Tablets By Mouth 3 times a day as needed for for anxiety Unchanged dicyclomine (Bentyl 10 mg Cap) 1 Capsules By Mouth 4 times a day Unchanged dulaglutide (dulaglutide 0.75 mg/ 0.5 mL subcutaneous solution) 0.75 Milligram Subcutaneous Every week Unchanged ferrous sulfate (ferrous sulfate 325 mg Tab) 1 Tablets By Mouth Every day Unchanged gabapentin (gabapentin 300 mg Cap) 1 Capsules By Mouth 3 times a day Diabetes mellitus with polyneuropathy Chr (more content not included)... Normal [facility] Medicine Office/Clini c Noteon 12-30-2023 Family Medicine Office/Clinic Note Family Medicine Office/Clinic Note Chief Complaint Acute Visit HPI Staff Patient here for an Acute Visit Dysuria: Onset: 1 week Symptoms: pressure, burning, feeling off OTC used: no Last UTI: unsure Hx of kidney stones: yes UA in office documented in chart - Patient notes she fell a couple days ago. She landed on her right side. Her right hip and calf are hurting. - Patient would like to discuss taking 1 tablet instead of 0.5 tablets of her Trazodone. _ Refill: Nystatin Edwards: 10/17/16, repeat in 10 years Dexa/Rex: per pt 2022 AMW: UTD Flu: per pt UTD History of Present Illness Patient presents today for urinary issues. Patient states that she has had urinary pressure and pain with urination for over a week. We received messages from [employer] to have UA with culture done, but it is unclear if this was done. Denies any hematuria. Denies any fever. Denies any nausea and vomiting. Has had similar symptoms with prior UTI. Patient reports a mechanical fall at her assisted living location last week. She reports some bruising, but does not feel like she had any lasting injuries. She did not have x-rays ordered. Would like to discuss x-rays today. Review of Systems PHQ Score Initial Depression Screen Score: 5 SCORE ROS - Provider Constitutional: no fever, no chills Skin: no rash, no lesions ENMT: no ear pain, no sore throat, no congestion, no hoarseness. Respiratory: no shortness of breath, no cough, no wheezing. Cardiovascular: no chest pain, no palpitations, no edema. Gastrointestinal: no nausea, no vomiting, no diarrhea, : yes incontinence, yes dysuria, no hematuria, yes frequency Musculoskeletal: yes back pain, yes trauma. Neurologic: no headache, no dizziness, no numbness, no weakness. Psychiatric: no sleeping problems, no irritability, no mood swings/depression. Physical Exam Vitals & Measurements HR: 60(Peripheral) BP: 106/64 SpO2: 99% HT: 64 in HT: 162.5 cm WT: 79.1 kg WT: 174.02 lb BMI: 29.96 General: Well developed, well nourished, in no acute distress Head: Normocephalic/atrauma tic Eyes: Pupils equal, round, and reactive to light. Sclerae normal, and extraocular movements intact Lungs: Normal respiratory effort and clear to auscultation Cardio: Regular rate and rhythm, normal S1 and S2, no murmur, no rub Musculoskeletal: No deformity or scoliosis noted. Normal range of motion. Joints normal. No erythema, edema, effusion, or ecchymosis Extremity: No clubbing, cyanosis, edema, or deformity, with normal ROM in both upper and lower bilateral extremities Neurologic: Grossly normal Skin: No petechiae, suspicious lesions, bruising and mild swelling of the anterior thigh Mental Status: Alert and oriented x3. Normal mood and affect Assessment/Plan 1. Dysuria (R30.0: Dysuria) UA today shows that she is having some leukocytosis as well as small blood in the urine. Suspicious for UTI, will send for culture and will start her on Cipro due to her medication allergies. Patient to call if symptoms do not resolve, will cover for pain with AZO as well. Recheck in 2 weeks if not improved. Ordered: Urnls Dip Stick Auto w/o Microscopy POC [id number] 2. Accidental fall (W19.XXXA: Unspecified fall, initial encounter) Does not appear to have occult injuries today due to fall, but will order x-rays to check hips and back related to her fall. Will call results once available. Consider referrals if needed after the reports come back. Ordered: XR Hip 2-3 Views Right XR Knee Complete 4+ Views Right 3. Overactive bladder (N32.81: Overactive bladder) Contributory to #1. 4. BMI 29.0-29.9,adult (Z68.29: Body mass index [BMI] 29.0-29.9, adult) Ordered: Body Mass Index (BMI) documented 3008F Depression Screening Positive 3354F Influenza immunization status assessed 1030F Most recent diastolic blood pressure <80 mm Hg 3078F Systolic BP <130 mm Hg (Most Recent) 3074F 5. Non-smoker (Z78.9: Other specified health status) Ordered: Current tobacco non-user 1036F 6. Obesity (E66.9: Obesity, unspecified) The standard range for ages 18 and older is >=18.5 and < 25 kg/m2. Your BMI today was above this range, this falls in the overweight to obese category and there are medical benefits to weight loss. We can offer counselling, referral, and/or medical support in addressing this problem. Your BMI and weight management will be followed at subsequent visits. 7. At risk for falls (Z91.81: History of falling) Encouraged continued maximum fall precautions. Ordered: Fall Risk Screen 2 or more w/injury 1100F Falls plan of care documented 05 Orders: ciprofloxacin, 500 mg = 1 tab(s), Oral, q12hr, X 10 day(s), # 20 tab(s), Refills(s) 0, Pharmacy: [facility], 162.5, cm, 12/30/23 17:04:00 EDT, Height/Length Dosing, 79.1, kg, 12/30/23 17:04:00 EDT, Weight Dosing trazodone, 50 mg = 1 tab(s), Oral, Once a day (at bedtime), # 30 tab(s), Refills(s) 5, Pharmacy: [facility] (more content not included)... Normal [facility] Comment on above: Result Comment: Elec tronically Signed By: Marcelo Call DO\.br\Date and Time Signed: 12/30/23 17:33 EDT Ambulatory Visit Summaryon 0 11-28-2023 Ambulatory Visit Summary Ambulatory Visit Summary FARTUN SCHNEIDER :1955 Visit Date:11/28/2023 Ambulatory Visit Instructions Your Diagnosis Encounter for annual wellness visit (AWV) in Medicare patient Chronic GERD Chronic pain Diabetes mellitus with polyneuropathy HTN (hypertension) Hypothyroidism Depression with anxiety Adult BMI 29.0-29.9 kg/sq m Overweight Your Care Team Attending Physician - Marcelo Call DO Primary Care Physician - Marcelo Call DO This Is Your Medications List Misc Prescription (reader) Misc Prescription (sensors) acetaminophen-oxycodo ne (acetaminophen-oxycod one 325 mg-5 mg Tab) ascorbic acid (ascorbic acid 500 mg Tab) atorvastatin (atorvastatin 40 mg Tab) bisacodyl (bisacodyl 5 mg Oral EC Tab) buPROPion (BuPROPion (Eqv-Wellbutrin SR) 150 mg/12 hours oral tablet, extended release) carvedilol (carvedilol 12.5 mg Tab) celecoxib (CeleBREX 100 mg Cap) diazepam (diazepam 2 mg Tab) dicyclomine (Bentyl 10 mg Cap) dulaglutide (dulaglutide 0.75 mg/0.5 mL subcutaneous solution) ferrous sulfate (ferrous sulfate 325 mg Tab) gabapentin (gabapentin 300 mg Cap) insulin glargine (Lantus 100 units/mL Injection-Insulin) levothyroxine (levothyroxine 112 mcg (0.112 mg) Tab) lisinopril (lisinopril 10 mg Tab) lisinopril (lisinopril 40 mg Tab) nystatin topical (nystatin Top 100,000 units/g Pwdr) omeprazole (omeprazole 20 mg Cap-DR) ondansetron (ondansetron 4 mg Tab) oxybutynin (oxybutynin 5 mg ER Tab) paroxetine (paroxetine 40 mg Tab) potassium chloride (potassium chloride 20 mEq ER Tab) trazodone (traZODONE 50 mg Tab) Procedures Performed Aspiration of hip joint (04/11/2023), Aspiration of hip joint (02/13/2023), Repair of fracture of hip by nailing using fluoroscopic guidance (12/20/2022), History of hemiarthroplasty of right hip (11/25/2022), Esophagogastroduodeno scopy (05/09/2022), Arthroscopy of shoulder (08/16/2020), Excision of mass of neck (03/11/2019), Arthroplasty of finger (03/10/2018), percutaneous pinning left hip (10/03/2014), left total knee replacement with hardware removal (12/07/2013), right total knee arthroplasty (06/08/2013), Right knee (12/14/2012), BASILAR ARTHROPLASTY OF THUMB, Cyst - diagnostic aspiration, ESWL of kidney, gallbladder removed, jaw surgery, left knee ORIF, RENY BSO - Total abdominal hysterectomy and bilateral salpingo-oophorectomy , 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. What to do next Scheduled Follow-Up Appointments Friday 10:00 AM EST With: Marcelo Call DO Where: [facility] [address] [place] [address]24 11:00 AM EDT With: Where: [facility] [address] [place] [address]- Medications What How Much When Why Instructions Unchanged acetaminophen-oxycodo ne (acetaminophen-oxycod one 325 mg-5 mg Tab) 1 Tablets By Mouth Every 12 hours as needed for for pain Unchanged ascorbic acid (ascorbic acid 500 mg Tab) 1 Tablets By Mouth 2 times a day Unchanged atorvastatin (atorvastatin 40 mg Tab) 1 Tablets By Mouth Every day Unchanged bisacodyl (bisacodyl 5 mg Oral EC Tab) 2 Tablets By Mouth Once as needed for Constipation Unchanged buPROPion (BuPROPion (Eqv-Wellbutrin SR) 150 mg/ 12 hours oral tablet, extended release) 1 Tablets By Mouth 2 times a day Unchanged carvedilol (carvedilol 12.5 mg Tab) 1 Tablets By Mouth 2 times a day Unchanged celecoxib (CeleBREX 100 mg Cap) 1 Capsules By Mouth 2 times a day as needed for Pain Unchanged diazepam (diazepam 2 mg Tab) 2 Tablets By Mouth 3 times a day as needed for for anxiety Unchanged dicyclomine (Bentyl 10 mg Cap) 1 Capsules By Mouth 4 times a day Unchanged dulaglutide (dulaglutide 0.75 mg/ 0.5 mL subcutaneous solution) 0.75 Milligram Subcutaneous Every week Unchanged ferrous sulfate (ferrous sulfate 325 mg Tab) 1 Tablets By Mouth Every day Unchanged gabapentin (gabapentin 300 mg Cap) 1 Capsules By Mouth 3 times a day Diabetes mellitus with polyneuropathy Chronic GERD Chronic pain Depression with anxiety HTN (hypertension) Hypothyroidism Herpes zoster lesion BMI 26.0-26.9,adult Non-smoker Unchanged insulin glargine (Lantus 100 units/ mL Injection-Insulin) 15 Units Subcutaneous Once a day (at bedtime) Unchanged levothyroxine (levothyroxine 112 mcg (0.112 mg) Tab) 1 Tablets By Mouth Every day Unchanged lisinopril (lisinopril 10 mg Tab) 1 Tablets By Mouth Every day HTN (hypertension) Unchanged lisinopril (lisinopril 40 mg Tab) 1 Tablets By Mouth Every day Unchanged Misc Prescription (reader) See instructions 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 Unchanged Misc Prescription (sensors) See instructions francheska 2 sensors change q 14 days Unchanged nystatin topical (nystatin Top 100,000 units/ g Pwdr) 1 Application Topical 2 times a day Intertrigo Unchanged omeprazole (omeprazole 20 mg Cap-DR) 1 Capsules By Mouth Every day Unchanged ondansetron (ondansetron 4 mg Tab) 1 Tablets By Mout (more content not included)... Normal [facility] CHEMISTRYOrdered By: SYSTEM SYSTEM on 11-28-2023 Albumin DL <= 20 mg/L (U) [Mass/Vol] 0.9 mg/dL Normal 0.0 - 1.9 mg/dL Remisol Chem Family Medicine Office/Clini c Noteon 11-28-2023 Family Medicine Office/Clinic Note Family Medicine Office/Clinic Note Chief Complaint Subsequent AWV History of Present Illness I was in the office and available for consultation and to provide direct supervision at the time of this visit. I have provided supervision of the care team and have reviewed this chart and office note and agree with the plan of care. Assessment/Plan 1. Encounter for annual wellness visit (AWV) in Medicare patient (Z00.00: Encounter for general adult medical examination without abnormal findings) The patient was given a customized and personalized print out of all the current AHRQ USPSTF?s recommendations for preventative services and all current CDC recommended immunizations, relevant risk recommendations and the following patient brochures were given. Reviewed What can I expect during my Medicare preventative care visit CDC-Falls Prevention and home safety screening reviewed. Patient denies any falls in last 12 months, voices no worry about falling, exhibits no problems with sitting and standing. Pt voices understanding with keeping walk way area free of clutter to prevent tripping and/or falling. [place] Advance Directives reviewed, on file in chart. No changes are needed. Patient denies any problems with ADL?s and Instrumental ADL?s. Cognitive screening completed with memory and clock face drawing. Immunization Record reviewed with the patient. Discussed Shingrix vaccine with educational handout and availability. COVID vaccines have been administered, immunization record is up to date. Allergies and medications reviewed and up to date. Patient denies concerns with taking medication as prescribed, reviewed OTC medications with patient with medication list up to date. Blood tests were reviewed: Discussed what tests need to be updated. Colonoscopy up to date, declined further screenings. DEXA scan and Mammogram were declined. Reviewed concerns with bladder control over past 6 months with no concerns. Reviewed pain symptoms with patient: Reviewed all outside providers that patient follows. Last visit summary notes available in chart and/or have been requested. Follow up scheduled as directed. AWV has been scheduled 11/11/2024 Medicare provides yearly screening for alcohol and depression concerns. This is completed during our Medicare wellness visit for those who do not have a current diagnosis of depression or concerns with alcohol use. I spent a total of 11 minutes on this date of service which included preparing to see the patient, face to face patient care, completing clinical documentation, obtaining and/or reviewing separately obtained history, counseling and educating the patient with handouts. Explanations were provided with reviewing questionnaires. AUDIT risk assessment screening completed, risk score (0) with patient denying concerns with use. 2. Chronic GERD (K21.9: Gastro-esophageal reflux disease without esophagitis) Patient taking Omeprazole as directed with symptoms managed. Reviewed nutrition therapy with recommended foods to help control your symptoms. 3. Chronic pain (G89.29: Other chronic pain) Pain level today is a 0/10. Pt taking Celebrex daily as directed. P to follow up with PCP as directed. 4. Diabetes mellitus with polyneuropathy (E11.42: Type 2 diabetes mellitus with diabetic polyneuropathy) Patient taking Insulin and Gabapentin daily as directed. Monitors FBS. Reviewed with pt s/s to monitor for and report to PCP. Discussed ADA dietary recommendations with handouts provided. Patient encouraged to increase daily physical activity, adequate water intake, monitor carbs/chol/sat fat and fats. Pt follows up with PCP with yearly DM foot checks. Reminded patient to perform at home foot checks to prevent future complications, wash with soap and water, apply lotion to bilateral feet and in-between toes to prevent dryness and/or cracking. Wear proper fitting shoes and loose fitting socks and/or hose. Follows up with yearly DM eye exams, last visit notes available in chart for review. 5. HTN (hypertension) (I10: Essential (primary) hypertension) Patient is taking Carvedilol and Lisinopril daily as directed. Does monitor BP pressure at home. Reviewed with pt BP goal to be <140/90. Reviewed different factors that can alter blood pressure readings. Education handout provided with s/s to monitor for and report to provider. Patient is encouraged to increase portions of fruit, vegetables, fiber and increase exercise as much as tolerable. Reviewed importance with monitoring foods high in salt content and encouraged to limit intake, if unsure encouraged to discuss with their PCP. Encouraged to eat more chicken, fish and lean white meats and limits red meats in diet. Discussed importance with keeping BP under good control to reduce CVA risk factors. Will continue to f/u with PCP during office visits and as needed. 6. Hypothyroidism (E03.9: Hypothyroidism, unspecified) Patient taking Levothyroxine 112 mcg daily as directed. Denies concerns with co (more content not included)... Normal [facility] Comment on above: Result Comment: Elec tronically Signed By: Marcelo Call DO\.br\Date and Time Signed: 11/28/23 16:17 EDT\.br\Electronically Co-Signed By: Ricardo Driscoll LPN\.br\Date and Time Co-Signed: 11/28/23 16:01 EDT Family Medicine Office/Clinic Note Family Medicine Office/Clinic Note Chief Complaint Chronic Condition follow up HPI Staff Patient here for 2 month f/u Patient is here for follow up on Diabetes. How often are you checking your blood sugars? 2 times per day What are your average readings?nurses at [facility] Do you have any of the following symptoms? Vision problems? no GI-Nausea/committing/ bloating? no Lightheadedness? no Paresthesias, Ulcerations or sores? no Foot Exam: UTD Eye Exam: per pt UTD Microalbumin: completed today Hgb A1C %: 6.3 % High (11/24/22 00:57:00) - Completed today 5.8 Excoriation (skin-picking) disorder: Recommended OTC mix of hydrocortisone and Benadryl cream at last visit and increased diazepam. Patient notes healing well. Patient is here for follow up on hypertension. How often are you checking your blood pressure? Doesn't check BP at home What are your average readings? N/A, Not checking at home Do you have any of the following symptoms? Chest Pain? no Palpitations? no ALVARADO/SOB? no Headache? no Peripheral Edema? yes right lower extremity Light Headiness? no BUN: 14 mg/dL (02/13/23 06:24:00) Calcium Lvl: 8.4 mg/dL Low (12/20/22 19:36:00) Chloride: 112 mmol/L High (02/13/23 06:24:00) CO2: 21 mmol/L (02/13/23 06:24:00) Creatinine: 0.7 mg/dL (02/13/23 06:24:00) eGFR: 94 mL/min/1.73 m2 (02/13/23 06:24:00) Glucose Lvl: 242 mg/dL High (12/20/22 19:36:00) Potassium Lvl: 3.5 mmol/L (02/13/23 06:24:00) Sodium Lvl: 139 mmol/L (02/13/23 06:24:00) Lipid Panel: DUE Patient is here for follow up on Thyroid Disease. Do you have any of the following symptoms? TSH: 0.25 mcIU/mL Low (11/24/22 16:36:00) T4 Free: 1.23 ng/dL (11/24/22) Follow up for Mental Status: Medication adherence- Yes, takes medication as prescribed Medication refill needed: yes Suicidal thoughts-Not at this time Most recent PAUL: 3 Most recent PHQ9: 9 Med Ag: completed today UDS: completed today - Patient would like to discuss right lower quadrant, noting she does see Dr. Rice next month 12/10, for a repeat x-ray. Edwards: 10/17/16, repeat in 10 years Dexa/Rex: per pt 2022 AMW: today History of Present Illness Patient presents today for DM recheck. - Adjusted Xanax for anxiety control for patient at last visit due to ongoing excoriation disorder Last A1c - Completed at outside location, unavailable today Current medications - Dulaglutide 0.75mg subQ weekly, Lantus 15U subQ QHs Diabetic neuropathy - Yes, on gabapentin 300mg TID Diabetic retinopathy - None reported, up to date on eye appointments per patient report Diabetic education - Completed at prior practice Urine microalbumin - Due Diabetic foot exam - Due Statin - atorvastatin 40mg QD Today, patient states that she feels great. Her anxiety is well controlled, her skin is healing up well with no concerns. She has no concerns about her DM management. She feels she is in a good place. Went to her 50-year high school reunion this week, was very excited and had a great time. Review of Systems PHQ Score Initial Depression Screen Score: 2 SCORE ROS - Provider Constitutional: no fever, no chills Skin: no rash, no lesions ENMT: no ear pain, no sore throat, no congestion, no hoarseness. Respiratory: no shortness of breath, no cough, no wheezing. Cardiovascular: no chest pain, no palpitations, no edema. Gastrointestinal: no nausea, no vomiting, no diarrhea, : yes incontinence, no dysuria, no hematuria, yes frequency Musculoskeletal: no back pain, no trauma. Neurologic: no headache, no dizziness, no numbness, no weakness. Psychiatric: no sleeping problems, no irritability, no mood swings/depression. Physical Exam Vitals & Measurements HR: 66(Peripheral) BP: 112/64 SpO2: 95% HT: 64 in HT: 162.5 cm WT: 77.3 kg WT: 170.06 lb BMI: 29.27 General: Well developed, well nourished, in no acute distress Head: Normocephalic/atrauma tic Eyes: Pupils equal, round, and reactive to light. Sclerae normal, and extraocular movements intact Lungs: Normal respiratory effort and clear to auscultation Cardio: Regular rate and rhythm, normal S1 and S2, no murmur, no rub Musculoskeletal: No deformity or scoliosis noted. Normal range of motion. Joints normal. No erythema, edema, effusion, or ecchymosis Extremity: No clubbing, cyanosis, edema, or deformity, with normal ROM in both upper and lower bilateral extremities Neurologic: Grossly normal Skin: No petechiae, suspicious lesions, rash of the anterior right femoral area, consistent with shingles, surgical site healing well with appropriate scarring. Mental Status: Alert and oriented x3. Normal mood and affect Assessment/Plan 1. Diabetes mellitus with polyneuropathy (E11.42: Type 2 diabetes mellitus with diabetic polyneuropathy) POC A1c today is 6.3%. Patient stable on current medications. Continue with diabetic and neuropathic medications as listed, no changes. Updates provided today with [place]. O (more content not included)... Normal [facility] Comment on above: Result Comment: Elec tronically Signed By: Marcelo Call DO\.br\Date and Time Signed: 11/28/23 11:10 EDT U Microalbon 11-28-2023 Albumin DL <= 20 mg/L (U) [Mass/Vol] 0.9 mg/dL Normal 0.0-1.9 [facility] Comment on above: Performed By: #### 1 [id number] #### [facility] [address] [place] [address] Patient Letter FTon 2023 [place] [facility] [place] [facility] [place], 2023 FARTUN SCHNEIDER [address] [facility] [address] [facility] [address] : 1955 Patient was not prescribed Lorazepam during her 11/06/23 appointment. The only medication change was an increase in her Diazepam. New prescription sent to pharmacy per request from Kamlesh Pereyra Nurse. New prescription is as follows: Diazepam 2mg take 2 tablets by mouth TID PRN. If you have any further questions please reach out to my nurse, Bethel, at [phone]. Thank you, Dr. Marcelo Call, [address] [place] [address] Normal [facility] Ambulatory Visit Summaryon 0 11-06-2023 Ambulatory Visit Summary Ambulatory Visit Summary FARTUN SCHNEIDER :1955 Visit Date:11/06/2023 Ambulatory Visit Instructions Your Diagnosis BMI 27.0-27.9,adult Non-smoker Excoriation (skin-picking) disorder Your Care Team Attending Physician - Marcelo Call DO Primary Care Physician - Marcelo Call DO This Is Your Medications List [facility] [place] Prescription (reader) [facility] Prescription (sensors) acetaminophen-oxycodo ne (acetaminophen-oxycod one 325 mg-5 mg Tab) ascorbic acid (ascorbic acid 500 mg Tab) atorvastatin (atorvastatin 40 mg Tab) bisacodyl (bisacodyl 5 mg Oral EC Tab) buPROPion (BuPROPion (Eqv-Wellbutrin SR) 150 mg/12 hours oral tablet, extended release) carvedilol (carvedilol 12.5 mg Tab) celecoxib (CeleBREX 100 mg Cap) diazepam (diazepam 2 mg Tab) dicyclomine (Bentyl 10 mg Cap) dulaglutide (dulaglutide 0.75 mg/0.5 mL subcutaneous solution) ferrous sulfate (ferrous sulfate 325 mg Tab) gabapentin (gabapentin 300 mg Cap) insulin glargine (Lantus 100 units/mL Injection-Insulin) levothyroxine (levothyroxine 112 mcg (0.112 mg) Tab) lisinopril (lisinopril 10 mg Tab) lisinopril (lisinopril 40 mg Tab) nystatin topical (nystatin Top 100,000 units/g Pwdr) omeprazole (omeprazole 20 mg Cap-DR) ondansetron (ondansetron 4 mg Tab) oxybutynin (oxybutynin 5 mg ER Tab) paroxetine (paroxetine 40 mg Tab) potassium chloride (potassium chloride 20 mEq ER Tab) trazodone (traZODONE 50 mg Tab) Procedures Performed Aspiration of hip joint (04/11/2023), Aspiration of hip joint (02/13/2023), Repair of fracture of hip by nailing using fluoroscopic guidance (12/20/2022), History of hemiarthroplasty of right hip (11/25/2022), Esophagogastroduodeno scopy (05/09/2022), Arthroscopy of shoulder (08/16/2020), Excision of mass of neck (03/11/2019), Arthroplasty of finger (03/10/2018), percutaneous pinning left hip (10/03/2014), left total knee replacement with hardware removal (12/07/2013), right total knee arthroplasty (06/08/2013), Right knee (12/14/2012), BASILAR ARTHROPLASTY OF THUMB, Cyst - diagnostic aspiration, ESWL of kidney, gallbladder removed, jaw surgery, left knee ORIF, RENY BSO - Total abdominal hysterectomy and bilateral salpingo-oophorectomy , 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. Discharge Vitals Heart Rate (Peripheral) 64 Blood Pressure 106/70 Height 162.5 cm Height 64 in Weight 73.7 kg Weight 162.14 lb BMI 27.91 What to do next Scheduled Follow-Up Appointments Friday 9:30 AM EDT With: Where: [address] [place] [address]- Friday 10:40 AM EDT With: Marcelo aCll DO Where: [facility] [address] [place] [address]- Medications What How Much When Why Instructions Changed diazepam (diazepam 2 mg Tab) 2 Tablets By Mouth 3 times a day as needed for for anxiety Pickup at [facility] Unchanged acetaminophen-oxycodo ne (acetaminophen-oxycod one 325 mg-5 mg Tab) 1 Tablets By Mouth Every 12 hours as needed for for pain Unchanged ascorbic acid (ascorbic acid 500 mg Tab) 1 Tablets By Mouth 2 times a day Unchanged atorvastatin (atorvastatin 40 mg Tab) 1 Tablets By Mouth Every day Unchanged bisacodyl (bisacodyl 5 mg Oral EC Tab) 2 Tablets By Mouth Once as needed for Constipation Unchanged buPROPion (BuPROPion (Eqv-Wellbutrin SR) 150 mg/ 12 hours oral tablet, extended release) 1 Tablets By Mouth 2 times a day Unchanged carvedilol (carvedilol 12.5 mg Tab) 1 Tablets By Mouth 2 times a day Unchanged celecoxib (CeleBREX 100 mg Cap) 1 Capsules By Mouth 2 times a day as needed for Pain Unchanged dicyclomine (Bentyl 10 mg Cap) 1 Capsules By Mouth 4 times a day Unchanged dulaglutide (dulaglutide 0.75 mg/ 0.5 mL subcutaneous solution) 0.75 Milligram Subcutaneous Every week Unchanged ferrous sulfate (ferrous sulfate 325 mg Tab) 1 Tablets By Mouth Every day Unchanged gabapentin (gabapentin 300 mg Cap) 1 Capsules By Mouth 3 times a day Diabetes mellitus with polyneuropathy Chronic GERD Chronic pain Depression with anxiety HTN (hypertension) Hypothyroidism Herpes zoster lesion BMI 26.0-26.9,adult Non-smoker Unchanged insulin glargine (Lantus 100 units/ mL Injection-Insulin) 15 Units Subcutaneous Once a day (at bedtime) Unchanged levothyroxine (levothyroxine 112 mcg (0.112 mg) Tab) 1 Tablets By Mouth Every day Unchanged lisinopril (lisinopril 10 mg Tab) 1 Tablets By Mouth Every day HTN (hypertension) Unchanged lisinopril (lisinopril 40 mg Tab) 1 Tablets By Mouth Every day Unchanged Misc Prescription (reader) See instructions 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 Unchanged Misc Prescription (sensors) See instructions francheska 2 sensors change q 14 days Unchanged nystatin topical (nystatin Top 100,000 units/ g Pwdr) 1 Application Topical 2 times a day Intertrigo Unchanged omeprazole (omeprazole 20 mg Cap-DR) 1 Capsules By Mouth Every day Unchanged ondansetron (ondanset (more content not included)... Normal [facility] Medicine Office/Clini c Noteon 11-06-2023 Family Medicine Office/Clinic Note Family Medicine Office/Clinic Note Chief Complaint Rash HPI Staff Patient here for Acute Visit (sister, xx) Rash: Duration: 2 week New or Recurrent: new Location: back and right shoulder Description: red Rash symptoms: burning and tingling OTC: [id number] roll on (worsened the burning sensation) - Requesting Gabapentin refill. - Patient would like a letter from provider stating cause of rash. Edwards: 10/17/16, repeat in 10 years Dexa/Rex: per pt 2022 AMW: scheduled 11/21/23 History of Present Illness Patient presents today for evaluation of skin finding. Patient states that she has been having trouble with her left shoulder blade. She states that the area has itching and burning findings. She states that she has been scratching in the area. She states that she had her cat removed who is her emotional support due to concerns over scratches for the cat. She states that this has made her very anxious and her anxiety was elevating prior to her cat being taken away. She has several small spots on her forearms and several larger areas on her right shoulder, upper arm. No sites on her mid back or low back, no sits on her legs. Review of Systems PHQ Score Initial Depression Screen Score: 6 SCORE ROS - Provider Constitutional: no fever, no chills Skin: no rash, no lesions ENMT: no ear pain, no sore throat, no congestion, no hoarseness. Respiratory: no shortness of breath, no cough, no wheezing. Cardiovascular: no chest pain, no palpitations, no edema. Gastrointestinal: no nausea, no vomiting, no diarrhea, : yes incontinence, no dysuria, no hematuria, yes frequency Musculoskeletal: no back pain, no trauma. Neurologic: no headache, no dizziness, no numbness, no weakness. Psychiatric: no sleeping problems, no irritability, no mood swings/depression. Physical Exam Vitals & Measurements HR: 64(Peripheral) BP: 106/70 SpO2: 99% HT: 64 in HT: 162.5 cm WT: 73.7 kg WT: 162.14 lb BMI: 27.91 General: Well developed, well nourished, in no acute distress Head: Normocephalic/atrauma tic Eyes: Pupils equal, round, and reactive to light. Sclerae normal, and extraocular movements intact Lungs: Normal respiratory effort and clear to auscultation Cardio: Regular rate and rhythm, normal S1 and S2, no murmur, no rub Musculoskeletal: No deformity or scoliosis noted. Normal range of motion. Joints normal. No erythema, edema, effusion, or ecchymosis Extremity: No clubbing, cyanosis, edema, or deformity, with normal ROM in both upper and lower bilateral extremities Neurologic: Grossly normal Skin: No petechiae, suspicious lesions, rash of the anterior right femoral area, consistent with shingles, surgical site healing well with appropriate scarring. Mental Status: Alert and oriented x3. Normal mood and affect Assessment/Plan 1. Excoriation (skin-picking) disorder (F42.4: Excoriation (skin-picking) disorder) Wounds as consistent with excoriation disorder, well healing and without signs of infection. I recommended OTC mix of hydrocortisone and benadryl cream to calm her findings for these areas and assist with healing. I further recommended that we consider increasing her diazepam, which she agrees to, to calm her anxiety and remove her need to pick. We will hold on other psychiatric medication changes, and will write letter to return her BUBBA to her for better support. Recheck at upcoming DM visit in 2 weeks. 2. Anxiety as acute reaction to gross stress (F41.1: Generalized anxiety disorder) As per #2, OARRS reviewed, no conflicts noted. 3. BMI 27.0-27.9,adult (Z68.27: Body mass index [BMI] 27.0-27.9, adult) Ordered: Body Mass Index (BMI) documented 3008F Depression Screening Positive 3354F Influenza immunization status assessed 1030F Most recent diastolic blood pressure <80 mm Hg 3078F Patient screen for fall risk: no falls in last year or 1 fall with no injury in last year 1101F Systolic BP <130 mm Hg (Most Recent) 3074F 4. Non-smoker (Z78.9: Other specified health status) Stable. Ordered: Current tobacco non-user 1036F Acute stress reaction (F43.0: Acute stress reaction) As per #1. Orders: diazepam, 4 mg = 2 tab(s), Oral, TID, PRN for anxiety, # 180 tab(s), Refills(s) 0, Pharmacy: [facility], 162.5, cm, 11/06/23 14:42:00 EDT, Height/Length Dosing, 73.7, kg, 11/06/23 14:42:00 EDT, Weight Dosing Follow-up No qualifying data available Problem List/Past Medical History Ongoing At risk for falls Chronic GERD Chronic pain Closed subcapital fracture of right femur with routine healing, subsequent encounter Depression with anxiety Diabetes mellitus with polyneuropathy Dysphagia Herpes zoster lesion HTN (hypertension) Hypothyroidism Iron deficiency anemia Lower back pain Obesity Overactive bladder Personal history of colonic polyps Smoker Historical Arthritis Bridgett esophagitis CMC arthritis, thumb, degenerative Diverticulitis Fibrocystic (more content not included)... [facility] Comment on above: Result Comment: Elec tronically Signed By: Marcelo Call DO\.deng\Date and Time Signed: 11/06/23 15:15 EDT Patient Letter FTon 2023 Patient [place] [facility] [place] [facility] [place] [address] [place] [address] November 06, 2023 FARTUN SCHNEIDER [address] [facility] [address] [place] [address] : 1955 To Whom It May Concern, Fartun is a patient under my care. In her findings from exam today, I do not believe her rash comes from any insect bites or animal bites. She does not need to have her pet Buttons restricted from her for her safety or the safety of others at this time. If you have questions on this recommendation, please contact the office and this can be discussed further. Sincerely, Marcelo Call D.O. [facility] LE Venous Duplex Righton 09-24-2023 LE Venous Duplex Right Exam Date/Time: 09/23/2023 21:01 EDT Reason for Exam: M79.89 Report IMPRESSION: NO EVIDENCE OF VENOUS THROMBOSIS INVOLVING VISUALIZED DEEP VEINS OF THE RIGHT LEG. CLINICAL HISTORY: M79.89. Right leg pain and swelling. COMMENT: On the right, the external iliac vein, greater saphenous vein, common femoral vein, deep femoral vein, femoral vein, and popliteal vein demonstrate spontaneous phasic venous flow, with augmentation, non-pulsatility, and compressibility every 2 cm. The right posterior tibial vein of the deep venous system compresses. The right peroneal deep calf vein is not visualized. The contralateral left common femoral vein demonstrates spontaneous phasic venous flow. Ordering Provider: Arnold Marshall FINAL REPORT Dictated: 09/24/2023 7:57 am Randy Lin M.D. Signed (Electronic Signature): 09/24/2023 7:57 am Signed by: Randy Lin M.D. Transcribed by: ARTIS Technologist: SOURAV [facility] Consent for Treatmenton 08-30 Consent for Treatment [id number] .00TIFF [facility] Physician Orderon 09-22-2023 Physician Order [id number] .00TIFF [facility] Ambulatory Visit Summaryon 0 09-18-2023 Ambulatory Visit Summary FARTNU SCHNEIDER :1955 Visit Date:09/18/2023 Ambulatory Visit Instructions Your Diagnosis BMI 27.0-27.9,adult Non-smoker Risk for falls Diabetes mellitus with polyneuropathy Chronic pain Your Care Team Attending Physician - Marcelo Call DO Primary Care Physician - Marcelo Call DO This Is Your Medications List [facility] Prescription (reader) [facility] Prescription (sensors) acetaminophen-oxycodo ne (acetaminophen-oxycod one 325 mg-5 mg Tab) ascorbic acid (ascorbic acid 500 mg Tab) atorvastatin (atorvastatin 40 mg Tab) bisacodyl (bisacodyl 5 mg Oral EC Tab) buPROPion (BuPROPion (Eqv-Wellbutrin SR) 150 mg/12 hours oral tablet, extended release) carvedilol (carvedilol 12.5 mg Tab) celecoxib (CeleBREX 100 mg Cap) diazepam (Valium 2 mg Tab) dicyclomine (Bentyl 10 mg Cap) dulaglutide (dulaglutide 0.75 mg/0.5 mL subcutaneous solution) ferrous sulfate (ferrous sulfate 325 mg Tab) gabapentin (gabapentin 300 mg Cap) insulin glargine (Lantus 100 units/mL Injection-Insulin) levothyroxine (levothyroxine 112 mcg (0.112 mg) Tab) lisinopril (lisinopril 10 mg Tab) lisinopril (lisinopril 40 mg Tab) nystatin topical (nystatin Top 100,000 units/g Pwdr) omeprazole (omeprazole 20 mg Cap-DR) ondansetron (ondansetron 4 mg Tab) oxybutynin (oxybutynin 5 mg ER Tab) paroxetine (paroxetine 40 mg Tab) potassium chloride (potassium chloride 20 mEq ER Tab) trazodone (traZODONE 50 mg Tab) Procedures Performed Aspiration of hip joint (04/11/2023), Aspiration of hip joint (02/13/2023), Repair of fracture of hip by nailing using fluoroscopic guidance (12/20/2022), History of hemiarthroplasty of right hip (11/25/2022), Esophagogastroduodeno scopy (05/09/2022), Arthroscopy of shoulder (08/16/2020), Excision of mass of neck (03/11/2019), Arthroplasty of finger (03/10/2018), percutaneous pinning left hip (10/03/2014), left total knee replacement with hardware removal (12/07/2013), right total knee arthroplasty (06/08/2013), Right knee (12/14/2012), BASILAR ARTHROPLASTY OF THUMB, Cyst - diagnostic aspiration, ESWL of kidney, gallbladder removed, jaw surgery, left knee ORIF, RENY BSO - Total abdominal hysterectomy and bilateral salpingo-oophorectomy , 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. Discharge Vitals Heart Rate (Peripheral) 64 Blood Pressure 124/76 Height 162.5 cm Height 64 in Weight 73.6 kg Weight 161.92 lb BMI 27.87 What to do next Scheduled Follow-Up Appointments Friday 9:30 AM EDT With: Where: [facility] Normal [address] [place] [address]-\.br\ Medications\.br\ What How Much When Why Instructions\.br\ Unchanged acetaminophen-oxy codone (acetaminophen-ox ycodone 325 mg-5 mg Tab) 1 Tablets By [...] Unchanged insulin glargine (Lantus 100 units/ mL Injection-Insulin ) 15 Units Subcutaneous Once a day (at bedtime)\.br\ Unchanged levothyroxine (levothyroxine 112 mcg (0.112 mg) Tab) 1 Tablets By Mouth Every day\.br\ Unchanged lisinopril (lisinopril 10 mg Tab) 1 Tablets By Mouth Every day HTN (hypertension)\.b r\ Unchanged lisinopril (lisinopril 40 mg Tab) 1 Tablets By Mouth Every day\.br\ [facility] See instructions francheska 2 reader [...] Neosporin (Rash)\.br\ Noxema Triple Clean (Rash)\.br\ amoxicillin (Anaphylaxis)\.br \ goldbond cream (Rash)\.br\ penicillin (Anaphylaxis)\.br \ sulfamethoxazole (unknown)\.br\ Problems\.br\ Ongoing - Any problem that you are currently receiving treatment for.\.br\ At risk for falls\.br\ Chronic GERD\.br\ Chronic pain\.br\ Closed subcapital fracture of right femur with routine healing, subsequent encounter\.br\ Depression with anxiety\.br\ Diabetes mellitus with polyneuropathy\.b r\ Dysphagia\.br\ Herpes zoster lesion\.br\ HTN (hypertension)\.b r\ Hypothyroidism\.b r\ Iron deficiency anemia\.br\ Lower back pain\.br\ Obesity\.br\ Overactive bladder\.br\ Personal history of colonic polyps\.br\ Smoker\.br\ Historical - Any problem that you are no longer receiving treatment for.\.br\ Arthritis\.br\ Bridgett esophagitis\.br\ CMC arthritis, thumb, degenerative\.br\ Diverticulitis\.b r\ Fibrocystic breast changes\.br\ Irritable bowel syndrome\.br\ Kidney Stones\.br\ UTI (urinary tract infection)\.br\ Patient Survey\.br\ You may receive a survey via text or e-mail asking about your office visit. Please share your experience with us by completing your survey. We appreciate your feedback and thank you for choosing us for your care.\.br\ \.br\ [facility] Medicine Office/Clini c Noteon 09-18-2023 Family Medicine Office/Clinic Note Chief Complaint 6 week follow up today HPI Staff Patient here for 6 week f/u Insomnia: At last visit Trazodone 25mg was added to assist with trouble sleeping. Patient notes she is sleeping better, other than having to get up and use the restroom. Chronic Pain: Patient notes hurting, but trying . Would like to discuss increasing dosage. Acute: Patient notes she has a lump on her right calf, she does have an appointment on Friday with Dr. Dooley, Orthopedic. Edwards: 10/17/16, repeat in 10 years Dexa/Rex: per pt 2022 AMW: needs to schedule History of Present Illness Patient presents today for 6-week followup on chronic conditions. - Adjusted patient's Percocet dosing at last visit for chronic pain from prior injuries. - Resumed Trazodone 25mg at bedtime fro insomnia. - Herpes zoster rash was resolved. - Improved on Myrbetriq. Today, patient states that she is watching her food intake more closely due to history with intermittent diarrhea. She has been using Immodium at bedtime to account for this. She is not cooking for her self at [employer]. She has a tenderness on her right lower extremity on the lateral side. She is seeing Arnold Topete at orthopedics this week for evaluation. Patient needs her pain control and her insulin clarified at this time. She states that [employer] records are discrepant from our records. Review of Systems PHQ Score Initial Depression Screen Score: 0 SCORE ROS - Provider Constitutional: no fever, no chills Skin: no rash, no lesions ENMT: no ear pain, no sore throat, no congestion, no hoarseness. Respiratory: no shortness of breath, no cough, no wheezing. Cardiovascular: no chest pain, no palpitations, no edema. Gastrointestinal: no nausea, no vomiting, no diarrhea, : yes incontinence, no dysuria, no hematuria, yes frequency Musculoskeletal: no back pain, no trauma. Neurologic: no headache, no dizziness, no numbness, no weakness. Psychiatric: no sleeping problems, no irritability, no mood swings/depression. Physical Exam Vitals & Measurements HR: 64(Peripheral) BP: 124/76 SpO2: 98% HT: 64 in HT: 162.5 cm WT: 73.6 kg WT: 161.92 lb BMI: 27.87 General: Well developed, well nourished, in no acute distress Head: Normocephalic/atrauma tic Eyes: Pupils equal, round, and reactive to light. Sclerae normal, and extraocular movements intact Lungs: Normal respiratory effort and clear to auscultation Cardio: Regular rate and rhythm, normal S1 and S2, no murmur, no rub Musculoskeletal: No deformity or scoliosis noted. Normal range of motion. Joints normal. No erythema, edema, effusion, or ecchymosis Extremity: No clubbing, cyanosis, edema, or deformity, with normal ROM in both upper and lower bilateral extremities Neurologic: Grossly normal Skin: No petechiae, suspicious lesions, rash of the anterior right femoral area, consistent with shingles, surgical site healing well with appropriate scarring. Mental Status: Alert and oriented x3. Normal mood and affect Assessment/Plan 1. BMI 27.0-27.9,adult (Z68.27: Body mass index [BMI] 27.0-27.9, adult) The standard range for ages 18 and older is >=18.5 and < 25 kg/m2. Your BMI today was above this range, this falls in the overweight to obese category and there are medical benefits to weight loss. We can offer counselling, referral, and/or medical support in addressing this problem. Your BMI and weight management will be followed at subsequent visits. Ordered: Body Mass Index (BMI) documented 3008F Depression Screening Negative 3352F Influenza immunization status assessed 1030F Most recent diastolic blood pressure <80 mm Hg 3078F Systolic BP <130 mm Hg (Most Recent) 3074F 2. Non-smoker (Z78.9: Other specified health status) Stable. Ordered: Current tobacco non-user 1036F 3. Risk for falls (Z91.81: History of falling) Stable Ordered: Fall Risk Screen 2 or more w/injury 1100F Falls plan of care documented 0518F 4. Diabetes mellitus with polyneuropathy (E11.42: Type 2 diabetes mellitus with diabetic polyneuropathy) Clarified patient's insulin, her last A1c was 6.1%. She was reduced from 18U to 15U to prevent her from running into hypoglycemia. Continue current dosing at 15U long acting insulin. Patient/Carriage house to call with any concerns. 5. Chronic pain (G89.29: Other chronic pain) A little poor management with BID dosing on her 5-325 percocet. Will increase back to TID for now, and consider reduction in 2-3 months if doing well. Patient/Carriage house to call with any concerns. Ordered: acetaminophen-oxycodo ne, 1-2 tab(s), Oral, q8hr Pain 4-7, 180 tab(s), Refill(s) 0, 1 tab Q8hrs PRN for moderate pain or 2 tabs Q8hrs PRN for severe pain, 162.5, cm, 08/07/23 11:49:00 EDT, Height/Length Dosing, 70.9, kg, 08/07/23 11:49:00 EDT, Weight Dosing Orders: trazodone, 100 mg = 1 tab(s), Oral, Daily, At bedtime, # 30 tab(s), Refills(s) 1, Pharmacy: [facility], 162.5, cm, 07/01/23 14:10:00 ED (more content not included)... Normal [facility] Comment on above: Result Comment: Elec tronically Signed By: Marcelo Call DO\.br\Date and Time Signed: 09/18/23 15:14 EDT Alf Recordson 09-15 Alf Records [id number]. 00TIFF Normal [facility] Alf Recordson 09-02 Alf Records [id number]. 00TIFF Normal [facility] Alf Recordson 08-31 Alf Records [id number]. 00TIFF [facility] Retail - Clinical Noteon Retail - Clinical Note [id number]. 00TIFF [facility] Alf Recordson 08-21 Alf Records [id number] .00TIFF [facility] Alf Recordson 08-19 Alf Records [id number]. 00TIFF [facility] Alf Records [id number] .00TIFF [facility] Alf Records [id number]. 00TIFF [facility] Alf Recordson 08-11 Alf Records [id number] .00TIFF [facility] Physician Orderon 08-11-2023 Physician Order [id number]. 00TIFF [facility] Ambulatory Visit Summaryon 0 08-07-2023 Ambulatory Visit Summary FARTUN SCHNEIDER :1955 Visit Date:08/07/2023 Ambulatory Visit Instructions Your Diagnosis BMI 26.0-26.9,adult Non-smoker Chronic pain Chronic GERD HTN (hypertension) Herpes zoster lesion Overactive bladder Insomnia Your Care Team Attending Physician - Marcelo Call DO Primary Care Physician - Link Marcelo DUVALL This Is Your Medications List [facility] Prescription (reader) [facility] Prescription (sensors) acetaminophen acetaminophen-oxycodo ne (Percocet 5 mg-325 mg oral tablet) ascorbic acid (ascorbic acid 500 mg Tab) atorvastatin (atorvastatin 40 mg Tab) bisacodyl (bisacodyl 5 mg Oral EC Tab) buPROPion (BuPROPion (Eqv-Wellbutrin SR) 150 mg/12 hours oral tablet, extended release) carvedilol (carvedilol 12.5 mg Tab) celecoxib (CeleBREX 100 mg Cap) diazepam (Valium 2 mg Tab) diazepam (Valium 5 mg Tab) dicyclomine (Bentyl 10 mg Cap) dulaglutide (dulaglutide 0.75 mg/0.5 mL subcutaneous solution) ferrous sulfate (ferrous sulfate 325 mg Tab) gabapentin (gabapentin 300 mg Cap) insulin glargine (Lantus 100 units/mL Injection-Insulin) levothyroxine (levothyroxine 112 mcg (0.112 mg) Tab) lisinopril (lisinopril 10 mg Tab) lisinopril (lisinopril 40 mg Tab) omeprazole (omeprazole 20 mg Cap-DR) ondansetron (ondansetron 4 mg Tab) oxybutynin (oxybutynin 5 mg ER Tab) paroxetine (paroxetine 40 mg Tab) potassium chloride (potassium chloride 20 mEq ER Tab) trazodone (traZODONE 100 mg Tab) trazodone (traZODONE 50 mg Tab) Procedures Performed Aspiration of hip joint (04/11/2023), Aspiration of hip joint (02/13/2023), Repair of fracture of hip by nailing using fluoroscopic guidance (12/20/2022), History of hemiarthroplasty of right hip (11/25/2022), Esophagogastroduodeno scopy (05/09/2022), Arthroscopy of shoulder (08/16/2020), Excision of mass of neck (03/11/2019), Arthroplasty of finger (03/10/2018), percutaneous pinning left hip (10/03/2014), left total knee replacement with hardware removal (12/07/2013), right total knee arthroplasty (06/08/2013), Right knee (12/14/2012), BASILAR ARTHROPLASTY OF THUMB, Cyst - diagnostic aspiration, ESWL of kidney, gallbladder removed, jaw surgery, left knee ORIF, RENY BSO - Total abdominal hysterectomy and bilateral salpingo-oophorectomy , 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. Discharge Vitals Heart Rate (Peripheral) 69 Blood Pressure 118/62 Height 162.5 cm Height 64 in Weight 70.9 kg Weight 155.98 lb BMI 26.85 What to do next Scheduled Follow-Up Appointments 2023 2:40 PM EDT With: Marcelo Call DO Where: [facility] Family Medicine Femi Normal [facility] Family Medicine Office/Clini c Noteon 08-07-2023 Family Medicine Office/Clinic Note Chief Complaint 4 week f/u HPI Staff Patient here for 4 week f/u - accompanied by sister, Nona At last visit Gabapentin 300mg TID was restarted to assist in Neuropathy and lingering shingles pain. Patient has been taking as directed, and would like to discuss increasing dosage at this time. Patient was also started on Oxybutynin for overactive bladder, due to previous prescription Myrbetriq being to expensive. Patient has been taking as directed and notes she is doing well with medication change. Since last visit patient had s/s of UTI, test was completed at residential facility, which was positive, patient was treated with ATB and notes taken as directed, declining any residual symptoms. Please also discuss service animal with patient today. She called upset the other day noting the facility told her even with a note from her provider they will not be able to accommodate patients request. Patient was advised of provider message from 08/05/23, she is agreeable to move forward with the letter. Patient would also like to discuss increasing Trazodone, on medication list from Facility states discontinued 07/01/23. Edwards: 10/17/16, repeat in 10 years Dexa/Rex: per pt 2022 Flu: UTD AMW: needs to schedule History of Present Illness Patient presents today for 1 month followup from last visit. Patient states that she is doing well. She states that the Myrbetriq was doing great for her, she has resolved her incontinence and urge symptoms. She is very happy with this, reports no side effects. Patient states that she needs a letter for an emotional support animal to keep her cat in her apartment. She would like this letter today. She also notes that she has had more trouble with sleep since the 25mg trazodone was removed at last visit. She would like this reinstated today. She also is having trouble getting her Percocet for pain control. She states that she is following up with orthopedics, and she is getting better for pain slowly. She does not need percocet as much, and she states that she could use a circuit breaker assembler dose for pain control. She denies any new falls, she is walking with a walker for her hip. She states that they are planning to keep her on a spacer, rather than placing a new prosthetic. Review of Systems PHQ Score Initial Depression Screen Score: 4 SCORE ROS - Provider Constitutional: no fever, no chills Skin: no rash, no lesions ENMT: no ear pain, no sore throat, no congestion, no hoarseness. Respiratory: no shortness of breath, no cough, no wheezing. Cardiovascular: no chest pain, no palpitations, no edema. Gastrointestinal: no nausea, no vomiting, no diarrhea, : yes incontinence, no dysuria, no hematuria, yes frequency Musculoskeletal: no back pain, no trauma. Neurologic: no headache, no dizziness, no numbness, no weakness. Psychiatric: no sleeping problems, no irritability, no mood swings/depression. Physical Exam Vitals & Measurements HR: 69(Peripheral) BP: 118/62 SpO2: 97% HT: 64 in HT: 162.5 cm WT: 70.9 kg WT: 155.98 lb BMI: 26.85 General: Well developed, well nourished, in no acute distress Head: Normocephalic/atrauma tic Eyes: Pupils equal, round, and reactive to light. Sclerae normal, and extraocular movements intact Lungs: Normal respiratory effort and clear to auscultation Cardio: Regular rate and rhythm, normal S1 and S2, no murmur, no rub Musculoskeletal: No deformity or scoliosis noted. Normal range of motion. Joints normal. No erythema, edema, effusion, or ecchymosis Extremity: No clubbing, cyanosis, edema, or deformity, with normal ROM in both upper and lower bilateral extremities Neurologic: Grossly normal Skin: No petechiae, suspicious lesions, rash of the anterior right femoral area, consistent with shingles, surgical site healing well with appropriate scarring. Mental Status: Alert and oriented x3. Normal mood and affect Assessment/Plan 1. Chronic pain (G89.29: Other chronic pain) Well controlled. She was restricted to Percocet 10-325mg TID for severe pain, added 1/2tab 10-325mg Percocet. Follow up with patient in 6 weeks to re-evaluate status. 2. Insomnia (G47.00: Insomnia, unspecified) We will resume patient's Trazodone 25mg dose at bedtime for today. she is to continue with the 100mg dose she is already on at bedtime. Recheck at patient's followup in 6 weeks. Ordered: trazodone, 25 mg = 0.5 tab(s), Oral, Once a day (at bedtime), # 15 tab(s), Refills(s) 3, [facility], 162.5, cm, 08/07/23 11:49:00 EDT, Height/Length Dosing, 70.9, kg, 08/07/23 11:49:00 EDT, Weight Dosing 3. HTN (hypertension) (I10: Essential (primary) hypertension) Well controlled on intake today. Continue to monitor levels, no changes at this time. 4. Herpes zoster lesion (B02.8: Zoster with other complications) Resolved at this time. Monitor for recurrence. Consider Shingles vaccination booster. 5. Overactive bladder (N32.81: Overactive bladder) Improved on Myrbetriq, will continue this (more content not included)... [facility] Comment on above: Result Comment: Elec tronically Signed By: Marcelo Call DO\.br\Date and Time Signed: 08/07/23 13:33 EDT Patient Letter FTon 2023 Patient [place] [facility] [place] [address] [place] [address] August 07, 2023 FARTUN SCHNEIDER [address] [place] [address] : 1955 To Whom It May Concern: Fartun Schneider is a patient under my care. She currently has a 1-year-old medium hair domestic cat called Buttons. She needs this cat for helping with management of several emotional and psychiatric conditions. Please allow her to keep this cat in her living space for continued emotional support and mental wellbeing. This is in accordance with the Fair Housing Act of 1965. If you have any questions on this recommendation, please contact the office to discuss this case further. Sincerely, Marcelo Call D.O. [facility] Retail - Clinical Noteon Retail - Clinical Note [id number] .00TIFF Normal [facility] Lab Reportson 07-17-2023 Lab Reports [id number] .00TIFF Normal [facility] Alf Recordson 07-16 Alf Records [id number] .00TIFF Normal [facility] Alf Records [id number] .00TIFF Normal [facility] Alf Records [id number] .00TIFF Normal [facility] Alf Records [id number] .00TIFF Normal [facility] Lab Reportson 07-15-2023 Lab Reports [id number] .00TIFF Normal [facility] Family Medicine Office/Clini c Noteon 07-09-2023 Family Medicine Office/Clinic Note Chief Complaint establish care HPI Staff Pt here to establish care Establish Care: History: Any previous diagnosis: see below History of seeing any specialist: no When was your last doctors visit: pt notes saw Dr. Baez 06/27/23, A1C 6.3 Last provider: Dr. Call Any recent labs: 02/20 Health Maintenance UTD: Colonoscopy: 10/17/16, repeat in 10 years Dexa: per pt 2022 Mammogram: per pt 2022 Flu: per pt 2022 AMW: unsure Acute: Current issues/complaints: Pt would like to discuss some medications. Lisinopril isn't on medication list. Valium and Trazodone dosages are incorrect. Pt would like a Charlene Freestyle sensor prescription, Valium, Trazodone, Pain Medication, Bentyl and Zofran. Pt would also like to discuss UTI symptoms and Shingles. History of Present Illness Care History Patient known to me from prior practice at [facility]. Patient has significant mental health history managed by psychiatry. She has history of multiple falls with serious injury. These falls are secondary to peripheral neuropathy from IDDM type II, which has been poorly controlled until this year. Patient has HTN, hypothyroidism, HLD. She has had a prior CVA before as well. She has chronic pain secondary to her falls and orthopedic injuries over the years. Patient's last A1c was 6.3% done by Dr. Baez at [facility]. Social Patient is a 67-year-old female Patient is currently Patient has no smoking history. Patient has no use of marijuana. Patient has never abused drugs or prescriptions. Patient has social alcohol use without abuse. Preventative Care Last physical - 2022 Last Labs - 2022 Last Pap - aged out Last Mammogram - due today - patient has refused in the past Last Colonoscopy - due today - patient has refused in the past Patient has from records found to have the following information relevant to their care: - [facility] Patient has a recent outbreak of Shingles. She has been treated for this, but states she is having neuropathic pain from this and her diabetic neuropathy. She denies any current lesions, states that these are healing. The site is located on her right anterior hip, not far from her surgical site for her hip replacement. Patient also complains that she is having problems with overactive bladder. She states that she has not been able to afford the Myrbetriq, she would like to consider a different medication she can afford. Review of Systems PHQ Score Initial Depression Screen Score: 5 SCORE ROS - Provider Constitutional: no fever, no chills Skin: no rash, no lesions ENMT: no ear pain, no sore throat, no congestion, no hoarseness. Respiratory: no shortness of breath, no cough, no wheezing. Cardiovascular: no chest pain, no palpitations, no edema. Gastrointestinal: no nausea, no vomiting, no diarrhea, : yes incontinence, no dysuria, no hematuria, yes frequency Musculoskeletal: no back pain, no trauma. Neurologic: no headache, no dizziness, no numbness, no weakness. Psychiatric: no sleeping problems, no irritability, no mood swings/depression. Physical Exam Vitals & Measurements HR: 78(Peripheral) BP: 136/78 SpO2: 97% HT: 64 in HT: 162.5 cm WT: 68.8 kg WT: 151.36 lb BMI: 26.05 General: Well developed, well nourished, in no acute distress Head: Normocephalic/atrauma tic Eyes: Pupils equal, round, and reactive to light. Sclerae normal, and extraocular movements intact Lungs: Normal respiratory effort and clear to auscultation Cardio: Regular rate and rhythm, normal S1 and S2, no murmur, no rub Musculoskeletal: No deformity or scoliosis noted. Normal range of motion. Joints normal. No erythema, edema, effusion, or ecchymosis Extremity: No clubbing, cyanosis, edema, or deformity, with normal ROM in both upper and lower bilateral extremities Neurologic: Grossly normal Skin: No petechiae, suspicious lesions, rash of the anterior right femoral area, consistent with shingles, surgical site healing well with appropriate scarring. Mental Status: Alert and oriented x3. Normal mood and affect Assessment/Plan 1. Diabetes mellitus with polyneuropathy (E11.42: Type 2 diabetes mellitus with diabetic polyneuropathy) Patient DM is well controlled. Her peripheral neuropathy is stable at this time. Due to her combined issues with shingles and her longstanding neuropathy, we will resume her gabapentin. She has been at 600-800mg TID previously. As such, we will resume at 300mg TID to help her increase her coverage for the future, and will see her back in 1 month to discuss increase and discuss recovery from the hip replacement as well as the herpes lesions. 2. Chronic GERD (K21.9: Gastro-esophageal reflux disease without esophagitis) Stable on current medications. Recheck in 3 months, continue current treatment protocol. 3. Chronic pain (G89.29: Other chronic pain) Patient's pain well controlled with [place] 5-325 previously. We will establish medication contrac (more content not included)... Normal [facility] Comment on above: Result Comment: Elec tronically Signed By: Marcelo Call DO\.br\Date and Time Signed: 07/09/23 15:53 EDT Ambulatory Visit Summaryon 0 07-01-2023 Ambulatory Visit Summary FARTUN SCHNEIDER :1955 Visit Date:07/01/2023 Ambulatory Visit Instructions Your Diagnosis Diabetes mellitus with polyneuropathy Chronic GERD Chronic pain Depression with anxiety HTN (hypertension) Hypothyroidism Herpes zoster lesion Overactive bladder BMI 26.0-26.9,adult Non-smoker Your Care Team Attending Physician - Marcelo Call DO Primary Care Physician - Marcelo Call DO This Is Your Medications List acetaminophen acetaminophen-oxycodo ne (Percocet 10/325 oral tablet) acetaminophen-oxycodo ne (Percocet 5 mg-325 mg oral tablet) ascorbic acid (ascorbic acid 500 mg Tab) atorvastatin (atorvastatin 40 mg Tab) bisacodyl (bisacodyl 5 mg Oral EC Tab) buPROPion (BuPROPion (Eqv-Wellbutrin SR) 150 mg/12 hours oral tablet, extended release) carvedilol (carvedilol 12.5 mg Tab) celecoxib (CeleBREX 100 mg Cap) diazepam (Valium 2 mg Tab) diazepam (Valium 5 mg Tab) dicyclomine (Bentyl 10 mg Cap) dicyclomine (Bentyl 10 mg Cap) dulaglutide (Trulicity Pen 0.75 mg/0.5 mL subcutaneous solution) ferrous sulfate (ferrous sulfate 325 mg Tab) gabapentin (gabapentin 300 mg Cap) insulin glargine (Lantus 100 units/mL Injection-Insulin) levothyroxine (levothyroxine 112 mcg (0.112 mg) Tab) lisinopril (lisinopril 10 mg Tab) lisinopril (lisinopril 40 mg Tab) omeprazole (omeprazole 20 mg Cap-DR) ondansetron (ondansetron 4 mg Tab) ondansetron (ondansetron 4 mg Tab) oxybutynin (oxybutynin 5 mg ER Tab) paroxetine (paroxetine 40 mg Tab) potassium chloride (potassium chloride 20 mEq ER Tab) trazodone (traZODONE 100 mg Tab) trazodone (traZODONE 100 mg Tab) trazodone (traZODONE 50 mg Tab) Procedures Performed Aspiration of hip joint (04/11/2023), Aspiration of hip joint (02/13/2023), Repair of fracture of hip by nailing using fluoroscopic guidance (12/20/2022), History of hemiarthroplasty of right hip (11/25/2022), Esophagogastroduodeno scopy (05/09/2022), Arthroscopy of shoulder (08/16/2020), Excision of mass of neck (03/11/2019), Arthroplasty of finger (03/10/2018), percutaneous pinning left hip (10/03/2014), left total knee replacement with hardware removal (12/07/2013), right total knee arthroplasty (06/08/2013), Right knee (12/14/2012), BASILAR ARTHROPLASTY OF THUMB, Cyst - diagnostic aspiration, ESWL of kidney, gallbladder removed, jaw surgery, left knee ORIF, RENY BSO - Total abdominal hysterectomy and bilateral salpingo-oophorectomy , 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. Discharge Vitals Heart Rate (Peripheral) 78 Blood Pressure 136/78 Height 162.5 cm Height 64 in Weight 68.8 kg Weight 151.36 lb BMI 26.05 What to do next You Need to Schedule the Following Appointments Follow Up with Marcelo Call DO, FAM When: Within 4 weeks Comments: 4 WEEKS FOLLOWUP Where: [id number] [place] [address]- Medications What How Much When Why Instructions New gabapentin (gabapentin 300 mg Cap) 1 Capsules By Mouth 3 times a day Diabetes mellitus with polyneuropathy Chronic GERD Chronic pain Depression with anxiety HTN (hypertension) Hypothyroidism Herpes zoster lesion BMI 26.0-26.9,adult Non-smoker Refills: 1 Pickup at [facility] New oxybutynin (oxybutynin 5 mg ER Tab) 1 Tablets By Mouth Every day Overactive bladder Refills: 1 Pickup at [facility] Changed acetaminophen-oxycodo ne (Percocet 10/ 325 oral tablet) 1 Tablets By Mouth Every 4 hours as needed for for pain Changed acetaminophen-oxycodo ne (Percocet 5 mg-325 mg oral tablet) 1 Tablets By Mouth Every 6 hours Chronic pain Pickup at [facility] Changed diazepam (Valium 2 mg Tab) 1 Tablets By Mouth 3 times a day Depression with anxiety Every 8 hours for management of anxiety Pickup at [facility] Changed diazepam (Valium 5 mg Tab) 1 Tablets By Mouth Every 8 hours as needed for Spasm Changed dicyclomine (Bentyl 10 mg Cap) 1 Capsules By Mouth 4 times a day Chronic GERD Duration: 14 Days Pickup at [facility] Changed dicyclomine (Bentyl 10 mg Cap) Changed lisinopril (lisinopril 10 mg Tab) 1 Tablets By Mouth Every day HTN (hypertension) Pickup at [facility] Changed lisinopril (lisinopril 40 mg Tab) 1 Tablets By Mouth Every day Changed ondansetron (ondansetron 4 mg Tab) 1 Tablets By Mouth Every 6 hours as needed for Nausea/Vomiting Chronic GERD Pickup at [facility] Changed ondansetron (ondansetron 4 mg Tab) 1 Tablets By Mouth Every 6 hours as needed for Nausea/Vomiting Changed trazodone (traZODONE 100 mg Tab) 1 Tablets By Mouth Once a day (at bedtime) Changed trazodone (traZODONE 100 mg Tab) 1 Tablets By Mouth Every day Depression with anxiety At bedtime Pickup at [facility] Changed trazodone (traZODONE 50 mg Tab) 0.5 Tablets By Mouth Every day Unchanged acetaminophen 325 Milligram By Mouth 3 times a day Unchanged ascorbic acid (ascorbic acid 500 mg Tab) 1 Tablets By Bhavna (more content not included)... [facility] Legal Correspondence Officeo n 07-01-2023 Legal Correspondence Office [id number] .00TIFF [facility] Patient Educationon 07-01-19 24 Patient Education Endocrinology Preventing Hypoglycemia Hypoglycemia occurs when the level [...] glucose. Your risk for hypoglycemia is higher: ? If you take insulin or diabetes medicines to help lower your blood glucose or to help your body make more insulin. ? If you skip or delay a meal or snack. ? If you are ill. ? During and after exercise. You can prevent hypoglycemia by working with your health care provider to adjust your meal plan as needed and by taking other precautions. How can hypoglycemia affect me? Mild symptoms Mild hypoglycemia may not cause any symptoms. If you do have symptoms, they may include: ? Hunger. ? Sweating and feeling clammy. ? Dizziness or feeling light-headed. ? Sleepiness or restless sleep. ? Nausea. ? Increased heart rate. ? Headache. ? Blurry vision. ? Mood changes, including irritability or anxiety. ? Tingling or numbness around the mouth, lips, or tongue. If mild hypoglycemia is not recognized and treated, it can quickly become moderate or severe hypoglycemia. Moderate symptoms Moderate hypoglycemia can cause: ? Confusion and poor judgment. ? Behavior changes. ? Weakness. ? Irregular heartbeat. ? A change in coordination. Severe symptoms Severe hypoglycemia is a medical emergency. It can cause: ? Fainting. ? Seizures. ? Loss of consciousness (coma). ? . What nutrition changes can be made? ? Work with your health care provider or dietitian to make a healthy meal plan that is right for you. Follow your meal plan carefully. ? Eat meals at regular times. ? If recommended by your health care provider, have snacks between meals. ? Donot skip or delay meals or snacks. You can be at risk for hypoglycemia if you are not getting enough carbohydrates. What lifestyle changes can be made? ? Work closely with your health care provider to manage your blood glucose. Make sure you know: ? Your goal blood glucose levels. ? How and when to check your blood glucose. ? The symptoms of hypoglycemia. It is important to treat hypoglycemia right away to keep it from becoming severe. ? Do not drink alcohol on an empty stomach. ? When you are ill, check your blood glucose more often than usual. Make a sick day plan in advance with your health care provider. Follow this plan whenever you cannot eat or drink normally. ? Always check your blood glucose before, during, and after exercise. How is this treated? This condition can often be treated by immediately eating or drinking something that contains sugar with 15 grams of fast-acting carbohydrate, such as: ? 4 oz (120 mL) of fruit juice. ? 4 oz (120 mL) of regular soda (not diet soda). ? Several pieces of hard candy. Check food labels to find out how many pieces to eat for 15 grams. ? 1 Tbsp (15 mL) of sugar or honey. ? 4 glucose tablets. ? 1 tube of glucose gel. Treating hypoglycemia if you have diabetes If you are alert and able to swallow safely, follow the 15:15 rule: ? Take 15 grams of a fast-acting carbohydrate. Talk with your health care provider about how much you should take. ? Fast-acting options include: ? Glucose tablets (take 4 tablets). ? Several pieces of hard candy. Check food labels to find out how many pieces to eat for 15 grams. ? 4 oz (120 mL) of fruit juice. ? 4 oz (120 mL) of regular soda (not diet soda). ? 1 Tbsp (15 mL) of sugar or honey. ? 1 tube of glucose gel. ? Check your blood glucose 15 minutes after you take the carbohydrate. ? If the repeat blood glucose level is still at or below 70 mg/dL (3.9 mmol/L), take 15 grams of a carbohydrate again. ? If your blood glucose level does not increase above 70 mg/dL (3.9 mmol/L) after 3 tries, seek emergency medical care. ? After your blood glucose level returns to [...] emergency glucagon kit available. Severe hypoglycemia may (more content not included)... [facility] Consent for Anesthesiaon Consent for Anesthesia [id number] .00TIFF [facility] IntraOperative Documentson 0 04-17-2023 IntraOperative Documents [id number]# 1.00TIFF [facility] IntraOperative Documentson 0 04-15-2023 IntraOperative Documents [id number]# 1.00TIFF [facility] Consent for Anesthesiaon Consent for Anesthesia [id number] .00TIFF Normal [facility] Discharge Instructionson Discharge Instructions [id number] .00TIFF Normal [facility] Main OR Intraoperative Recor don 04-14-2023 Main OR Intraoperative Record IntraOp Document Type FT Summary Primary Physician: Joaquim Rice DO Finalized Date/Time: 04/14/23 12:33:41 Pt. Name: FARTUN SCHNEIDER/Sex: 1955 Female Med Rec #: [id number] Physician: Joaquim Rice DO Financial #: [id number] Pt. Type: A Room/Bed: [place] [address] Admit/Disch: 04/11/23 10:31:47 - 04/11/23 14:30:00 Institution: Case Times FT Entry 1 Patient Times In Room 04/11/23 12:27:00 Out Room 04/11/23 12:45:00 Procedure Times Start 04/11/23 12:36:00 Stop 04/11/23 12:41:00 Anesthesia Times Start 04/11/23 12:27:00 Stop 04/11/23 12:45:00 Last Modified By: Aliyah Huerta CST 04/14/23 12:31:31 General Comments: 04/14/23 Chart opened to review and send charges [facility]oth CSFA Case Attendance FT Entry 1 Entry 2 Entry 3 Case Attendee Joaquim Rice DO [facility], Leo Persaud Role Performed Surgeon - Primary Anesthesiologist Dobie Man - Primary Fire Production Operator Time In 04/11/23 12:27:00 04/11/23 12:27:00 04/11/23 12:27:00 Time Out 04/11/23 12:43:00 04/11/23 12:45:00 04/11/23 12:45:00 Procedure HIP ARTHROGRAM(Right) HIP ARTHROGRAM(Right) HIP ARTHROGRAM(Right) Comments DR KAPLAN SUPERVISING Last Modified By: Leo Silva Terry T Sweene, Terry T 04/11/23 13:02:21 04/11/23 12:54:48 04/11/23 12:54:48 Entry 4 Entry 5 Case Attendee Marcelo Vazquez Chelsea R Role Performed Scrub - Primary Receiving Teller Time In 04/11/23 12:27:00 04/11/23 12:27:00 Time Out 04/11/23 12:45:00 04/11/23 12:45:00 Procedure HIP ARTHROGRAM(Right) HIP ARTHROGRAM(Right) Comments Last Modified By: Leo Silva Terry T 04/11/23 12:54:48 04/11/23 12:54:48 Perioperative Protocols FT Pre-Care Text: Implements protective measures prior to operative or invasive procedure, confirms identity before the operative or invasive procedure, verifies operative procedure, surgical site, and laterality Entry 1 Procedure(s) HIP ARTHROGRAM(Right) Patient Identity Birthday, ID Band Verified (select at Check, Patient least 2): Participation Consents / H and P Anesthesia Consent, Operative Site Present Verified HandP, Surgery/Procedure Marking Verified Consent Surgical Site Yes Laterality Verified Yes Verified Procedure Verified Yes Correct Patient Yes Position Verified Availability Equipment, Implant, Prep Dry Yes Verified (If Medication Applicable) PreOp Antibiotic Yes Time Out Joaquim Rice DO, Given Participants Brady Hudson, Leo Silva, Marcelo Vazquez Owsley, Chelsea R Time Out Complete 04/11/23 12:32:00 Outcomes Met? Yes Last Modified By: Leo Silva 04/11/23 12:55:37 Post-Care Text: The patient is free from signs and symptoms of injury caused by extraneous objects Allergy Information FT Pre-Care Text: Verifies allergies Entry 1 Allergies Reviewed? Yes Allergies Reviewed Self/Patient With Outcomes Met? Yes Last Modified By: Leo Silva 04/11/23 12:56:02 Post-Care Text: The patient received appropriate medication(s) safely administered during the perioperative period Surgical Procedures FT Entry 1 Procedure Description Procedure HIP ARTHROGRAM Modifiers Right Surgeon Description RIGHT HIP ASPIRATION Primary Procedure Yes Primary Surgeon Joaquim Rice DO Start 04/11/23 12:36:00 Stop 04/11/23 12:41:00 Anesthesia Type MAC Surgical Service Orthopedics Wound Class 1 - Clean Last Modified By: Leo Silva 04/11/23 12:56:12 General Case Data FT Pre-Care Text: Classifies surgical wound, implements aseptic technique, initiates traffic control Entry 1 Case Information OR OR 7 FT Case Level Level 2 Wound Class 1 - Clean Specialty Orthopedics ASA Class 3 Preop Diagnosis SEPTIC RIGHT HIP Postop Same As Preop Yes Postop Diagnosis SEPTIC RIGHT HIP Outcomes Met? Yes Last Modified By: Aliyah Huerta CST 04/14/23 12:32:06 Post-Care Text: The patient is free from signs and symptoms of infection Skin Assessment (Pre Procedure) FT Pre-Care Text: Implements protective measures to prevent skin/ tissue injury due to thermal or mechanical sources Evaluates for signs and symptoms of physical injury to skin and tissue Entry 1 Skin Integrity Intact, [place], Warm, and Skin Abnormality No Dry Outcomes Met? Yes Last Modified By: Leo Silva 04/11/23 12:57:05 Post-Care Text: The patient is free from signs and symptoms of injury caused by extraneous objects Patient Positioning FT Pre-Care Text: Identifies physical alterations that require additional precautions for procedure-specific positioning, verifies presence of prosthetics or corrective devices, positions the patient, evaluates the patient for signs and symptoms of injury as a result of positioning Entry 1 Procedure HIP ARTHROGRAM(Right) Body Position Supine Feet Uncrossed? No Left Arm Position Extended on Padded Arm Board Right Arm Position Extended on Padded Arm Left Leg Position Extended Board Ri (more content not included)... Normal [facility] Outside Recordson 04-14-2023 Outside Records [id number] .00TIFF Normal [facility] Preoperative Documentson Preoperative Documents [id number] .00TIFF Normal [facility] Capillary Glucose POCon 03-31 Glucose [Mass/Vol] 177 mg/dL High 55-99 [facility] Comment on above: Result Comment: Lucille simons Meter Performed By: #### 2 [id number] ####[facility] [id number] [place] [address] Consent for Procedure/Surger yon 04-11-2023 Consent for Procedure/Surgery [id number] .00TIFF Normal [facility] Consent for Treatmenton 03-31 Consent for Treatment [id number] .00TIFF Normal [facility] Discharge Instructionson Discharge Instructions FARTUN SCHNEIDER :1955 Visit Date:04/11/2023 Inpatient Discharge Instructions Your Care Team Admitting Physician - Joaquim Rice DO Referring Physician - Joaquim Rice DO Reason for Your Visit SEPTIC RIGHT HIP Procedure History Aspiration of hip joint (04/11/2023), Aspiration of hip joint (02/13/2023), Repair of fracture of hip by nailing using fluoroscopic guidance (12/20/2022), History of hemiarthroplasty of right hip (11/25/2022), Esophagogastroduodeno scopy (05/09/2022), Arthroscopy of shoulder (08/16/2020), Excision of mass of neck (03/11/2019), Arthroplasty of finger (03/10/2018), percutaneous pinning left hip (10/03/2014), left total knee replacement with hardware removal (12/07/2013), right total knee arthroplasty (06/08/2013), Right knee (12/14/2012), BASILAR ARTHROPLASTY OF THUMB, Cyst - diagnostic aspiration, ESWL of kidney, gallbladder removed, jaw surgery, left knee ORIF, RENY BSO - Total abdominal hysterectomy and bilateral salpingo-oophorectomy , 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. What to do next Instructions From Your Doctor Event Name Event Result Pharmacy Information Other: [facility] [place] Discharge Instructions Discharge Instructions New Follow Up Appointments after Discharge Follow Up with Joaquim Rice When: Comments: Call for followup appointment Where: [place] [address]- [place] (1) Medications What How Much When Instructions Next Dose Unchanged acetaminophen 325 Milligram By Mouth 3 times a day Unchanged acetaminophen-oxycodo ne (Percocet 10/ 325 oral tablet) 1 Tablets By Mouth Every 4 hours as needed for for pain Unchanged ascorbic acid (ascorbic acid 500 mg Tab) 1 Tablets By Mouth Twice a day (with meals) Unchanged atorvastatin (atorvastatin 40 mg Tab) 1 Tablets By Mouth Every day Unchanged bisacodyl (bisacodyl 5 mg Oral EC Tab) 2 Tablets By Mouth Once as needed for Constipation Unchanged buPROPion (BuPROPion (Eqv-Wellbutrin SR) 150 mg/ 12 hours oral tablet, extended release) 1 Tablets By Mouth 2 times a day Unchanged carvedilol (carvedilol 12.5 mg Tab) 1 Tablets By Mouth 2 times a day Unchanged celecoxib (CeleBREX 100 mg Cap) 1 Capsules By Mouth 2 times a day as needed for Pain Unchanged diazepam (Valium 5 mg Tab) 1 Tablets By Mouth Every 8 hours as needed for Spasm Unchanged ferrous sulfate (ferrous sulfate 325 mg Tab) 1 Tablets By Mouth Every day Unchanged insulin aspart (NovoLOG FlexPen 100 units/ mL injectable solution) Unchanged insulin glargine (Lantus 100 units/ mL Injection-Insulin) 15 Units Subcutaneous Once a day (at bedtime) Unchanged levothyroxine (levothyroxine 112 mcg (0.112 mg) Tab) 1 Tablets By Mouth Every day Unchanged lisinopril (lisinopril 40 mg Tab) 1 Tablets By Mouth Every day Unchanged omeprazole (omeprazole 20 mg Cap-DR) 1 Capsules By Mouth Every day Unchanged paroxetine (paroxetine 40 mg Tab) 1 Tablets By Mouth Every day Unchanged potassium chloride (potassium chloride 20 mEq ER Tab) 1 Tablets By Mouth Every day Unchanged trazodone (traZODONE 100 mg Tab) 1 Tablets By Mouth Once a day (at bedtime) Unchanged trazodone (traZODONE 50 mg Tab) 0.5 Tablets By Mouth Every day Allergies Adhesive Bandage (Rash) Celebrex (Rash) Neosporin (Rash) Noxema Triple Clean (Rash) amoxicillin (Anaphylaxis) goldbond cream (Rash) penicillin (Anaphylaxis) sulfamethoxazole (unknown) [employer] [place], [place] [facility] HIP INJECTION WITH ANESTHESIA Home Care Instructions Medications You may be given a prescription for pain medication. Please notify the office immediately if you have any allergies to pain medications. About Your Surgical Site You may remove the bandaid later today. Diet You may resume your regular diet [...] pain at the operative site, persistent vomiting. About your follow-up office visit You will be given a (more content not included)... Normal [facility] Comment on above: Result Comment: Elec tronically Signed By: Edgar LEES, Arlette Keen\.br\Date and Time Signed: 04/11/23 13:31 EST Discharge Instructions FARTUN SCHNEIDER :1955 Visit Date:04/11/2023 Inpatient Discharge Instructions Your Care Team Admitting Physician - Joaquim Rice DO Referring Physician - Joaquim Rice DO Reason for Your Visit SEPTIC RIGHT HIP This Is Your Medications List acetaminophen acetaminophen-oxycodo ne (Percocet 10/325 oral tablet) ascorbic acid (ascorbic acid 500 mg Tab) atorvastatin (atorvastatin 40 mg Tab) bisacodyl (bisacodyl 5 mg Oral EC Tab) buPROPion (BuPROPion (Eqv-Wellbutrin SR) 150 mg/12 hours oral tablet, extended release) carvedilol (carvedilol 12.5 mg Tab) celecoxib (CeleBREX 100 mg Cap) diazepam (Valium 5 mg Tab) ferrous sulfate (ferrous sulfate 325 mg Tab) insulin aspart (NovoLOG FlexPen 100 units/mL injectable solution) insulin glargine (Lantus 100 units/mL Injection-Insulin) levothyroxine (levothyroxine 112 mcg (0.112 mg) Tab) lisinopril (lisinopril 40 mg Tab) omeprazole (omeprazole 20 mg Cap-DR) paroxetine (paroxetine 40 mg Tab) potassium chloride (potassium chloride 20 mEq ER Tab) trazodone (traZODONE 100 mg Tab) trazodone (traZODONE 50 mg Tab) Procedure History Aspiration of hip joint (02/13/2023), Repair of fracture of hip by nailing using fluoroscopic guidance (12/20/2022), History of hemiarthroplasty of right hip (11/25/2022), Esophagogastroduodeno scopy (05/09/2022), Arthroscopy of shoulder (08/16/2020), Excision of mass of neck (03/11/2019), Arthroplasty of finger (03/10/2018), percutaneous pinning left hip (10/03/2014), left total knee replacement with hardware removal (12/07/2013), right total knee arthroplasty (06/08/2013), Right knee (12/14/2012), BASILAR ARTHROPLASTY OF THUMB, Cyst - diagnostic aspiration, ESWL of kidney, gallbladder removed, jaw surgery, left knee ORIF, RENY BSO - Total abdominal hysterectomy and bilateral salpingo-oophorectomy , 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. What to do next Instructions From Your Doctor Event Name Event Result Pharmacy Information Other: [facility] New Follow Up Appointments after Discharge Follow Up with Joaquim Rice When: Comments: Call for followup appointment Where: [address] [place] [id number] [facility] Medications What How Much When Instructions Next Dose Unchanged acetaminophen 325 Milligram By Mouth 3 times a day Unchanged acetaminophen-oxycodo ne (Percocet 10/ 325 oral tablet) 1 Tablets By Mouth Every 4 hours as needed for for pain Unchanged ascorbic acid (ascorbic acid 500 mg Tab) 1 Tablets By Mouth Twice a day (with meals) Unchanged atorvastatin (atorvastatin 40 mg Tab) 1 Tablets By Mouth Every day Unchanged bisacodyl (bisacodyl 5 mg Oral EC Tab) 2 Tablets By Mouth Once as needed for Constipation Unchanged buPROPion (BuPROPion (Eqv-Wellbutrin SR) 150 mg/ 12 hours oral tablet, extended release) 1 Tablets By Mouth 2 times a day Unchanged carvedilol (carvedilol 12.5 mg Tab) 1 Tablets By Mouth 2 times a day Unchanged celecoxib (CeleBREX 100 mg Cap) 1 Capsules By Mouth 2 times a day as needed for Pain Unchanged diazepam (Valium 5 mg Tab) 1 Tablets By Mouth Every 8 hours as needed for Spasm Unchanged ferrous sulfate (ferrous sulfate 325 mg Tab) 1 Tablets By Mouth Every day Unchanged insulin aspart (NovoLOG FlexPen 100 units/ mL injectable solution) Unchanged insulin glargine (Lantus 100 units/ mL Injection-Insulin) 15 Units Subcutaneous Once a day (at bedtime) Unchanged levothyroxine (levothyroxine 112 mcg (0.112 mg) Tab) 1 Tablets By Mouth Every day Unchanged lisinopril (lisinopril 40 mg Tab) 1 Tablets By Mouth Every day Unchanged omeprazole (omeprazole 20 mg Cap-DR) 1 Capsules By Mouth Every day Unchanged paroxetine (paroxetine 40 mg Tab) 1 Tablets By Mouth Every day Unchanged potassium chloride (potassium chloride 20 mEq ER Tab) 1 Tablets By Mouth Every day Unchanged trazodone (traZODONE 100 mg Tab) 1 Tablets By Mouth Once a day (at bedtime) Unchanged trazodone (traZODONE 50 mg Tab) 0.5 Tablets By Mouth Every day Allergies Adhesive Bandage (Rash) Celebrex (Rash) Neosporin (Rash) Noxema Triple Clean (Rash) amoxicillin (Anaphylaxis) goldbond cream (Rash) penicillin (Anaphylaxis) sulfamethoxazole (unknown) Problems Ongoing - Any problem that you are currently receiving treatment for. Chronic GERD Chronic pain Closed subcapital fracture of right femur with routine healing, subsequent encounter Depression with anxiety Diabetes mellitus with polyneuropathy Dysphagia HTN (hypertension) Hypothyroidism Iron deficiency anemia Lower back pain Obesity Personal history of colonic polyps Smoker Historical - Any problem that you are no longer receiving treatment for. Arthritis Bridgett esophagitis [facility] arthritis, thumb, degenerative Diverticulitis Fibrocystic breast changes Irritable bowel syndrome Kidney Stones UTI (urinary tract infection) Education Materials Eryn Myers (more content not included)... Normal [facility] Comment on above: Result Comment: Elec tronically Signed By: Jackelin LEES, Becca Palomares\.br\Date and Time Signed: 04/11/23 13:07 EST H&P Updateon 04-11-2023 H&P Update [id number] .[id number] Normal [facility] Inpatient Patient Summaryon 04-11-2023 Inpatient Patient Summary [address] [id number] [facility] Clinical Discharge Instructions PERSON INFORMATION Name: FARTUN SCHNEIDER [facility]#:[id number] PHYSICIANS Admitting Physician: Joaquim Rice DO Attending Physician: Joaquim Rice DO PCP: [facility] Discharge Diagnosis: Comment: PATIENT EDUCATION INFORMATION Instructions: Post Op Patient Instructions - FT (CUSTOM); Henri Rice - Hip Injection with Anesthesia (Custom) Medication Leaflets: Follow up: With: Address: When: Joaquim Rice [address] [place] [id number] [facility] (1) Comments: Call for followup appointment MEDICATION LIST Medications to Continue with No Changes Other Medications acetaminophen 325 Milligram By Mouth 3 times a day. acetaminophen-oxycodo ne (Percocet 10/325 oral tablet) 1 Tablets By Mouth every 4 hours as needed for pain. ascorbic acid (ascorbic acid 500 mg Tab) 1 Tablets By Mouth twice a day (with meals). atorvastatin (atorvastatin 40 mg Tab) 1 Tablets By Mouth every day. bisacodyl (bisacodyl 5 mg Oral EC Tab) 2 Tablets By Mouth Once as needed Constipation. buPROPion (BuPROPion (Eqv-Wellbutrin SR) 150 mg/12 hours oral tablet, extended release) 1 Tablets By Mouth 2 times a day. carvedilol (carvedilol 12.5 mg Tab) 1 Tablets By Mouth 2 times a day. celecoxib (CeleBREX 100 mg Cap) 1 Capsules By Mouth 2 times a day as needed Pain. diazepam (Valium 5 mg Tab) 1 Tablets By Mouth every 8 hours as needed Spasm. Refills: 0. ferrous sulfate (ferrous sulfate 325 mg Tab) 1 Tablets By Mouth every day. insulin aspart (NovoLOG FlexPen 100 units/mL injectable solution) , SSI insulin glargine (Lantus 100 units/mL Injection-Insulin) 15 Units Subcutaneous once a day (at bedtime). levothyroxine (levothyroxine 112 mcg (0.112 mg) Tab) 1 Tablets By Mouth every day. lisinopril (lisinopril 40 mg Tab) 1 Tablets By Mouth every day. omeprazole (omeprazole 20 mg Cap-DR) 1 Capsules By Mouth every day. paroxetine (paroxetine 40 mg Tab) 1 Tablets By Mouth every day. potassium chloride (potassium chloride 20 mEq ER Tab) 1 Tablets By Mouth every day. trazodone (traZODONE 100 mg Tab) 1 Tablets By Mouth once a day (at bedtime). trazodone (traZODONE 50 mg Tab) 0.5 Tablets By Mouth every day. Comment: Latha [facility] Main OR PACU I Recordon 03-31 Main OR PACU I Record PACU Phase I Document Type FT Summary Primary Physician: Joaquim Rice DO Finalized Date/Time: 04/11/23 13:35:33 Pt. Name: FARTUN SCHNEIDER/Sex: 1955 Female Med Rec #: [id number] Physician: Joaquim Rice DO Financial #: [id number] Pt. Type: A Room/Bed: [place] [address] Admit/Disch: 04/11/23 10:31:47 - Institution: Case Times PACU I FT Pre-Care Text: Identifies barriers to communication and implements measures to provide psychological support Develops individualized plan of care, and ensures continuity of care Maintains patient's dignity and privacy, and maintains patient confidentiality Identifies and reports philosophical, cultural, and spiritual beliefs and values Identifies individual values and wishes concerning care Implements aseptic technique, and administers prescribed antibiotic therapy and immunizing agents as ordered Evaluates postoperative tissue perfusion Implements thermoregulation measures, and monitors body temperature Evaluates postoperative respiratory status Evaluates postoperative cardiac status Evaluates postoperative neurological status Assesses pain control, collaborated in initiating patient-controlled analgesia and implements alternative methods of pain control Verifies allergies, administers prescribed medications and solutions, evaluates response to medications Entry 1 In PACU I 04/11/23 12:47:00 Discharge from PACU 04/11/23 13:17:00 I Outcomes Met? Yes Last Modified By: Carlos LEES, Ramonita Almaguer 04/11/23 13:35:16 Post-Care Text: The patient demonstrates knowledge of the expected response to the operative or invasive procedure The patient's care is consistent with the individualized perioperative plan of care The patient's right to privacy is maintained The patient's value system, lifestyle, ethnicity, and culture are considered, respected, and incorporated into the perioperative plan of care The patient participates in decisions affecting his or her perioperative plan of care The patient is free from signs and symptoms of infection The patient has wound/tissue perfusion consistent with or improved from baseline levels established preoperatively The patient is at or returning to normothermia at the conclusion of the immediate postoperative period The patient's respiratory function is consistent with or improved from baseline levels established preoperatively The patient's cardiovascular status is consistent with or improved from baseline levels established preoperatively The patient's cardiovascular status is consistent with or improved from baseline levels established preoperatively The patient demonstrates and/or reports adequate pain control throughout the perioperative period The patient received appropriate medication(s), safely administered during the perioperative period Acuity Level PACU I FT Entry 1 Start Time 04/11/23 12:47:00 Stop Time 04/11/23 13:17:00 Acuity Level Acuity Level I Last Modified By: Ramonita Gonzalez RN 04/11/23 13:35:25 Finalized By: Ramonita Gonzalez RN Document Signatures Signed By: Ramonita Gonzalez RN 04/11/23 13:35 Ramonita Gonzalez RN 04/11/23 13:35 Normal [facility] Monitor Recordon 04-11-2023 Monitor Record [id number]# 1.00TIFF Normal [facility] Monitor Record [id number]# 1.00TIFF Normal [facility] Operative Reporton Operative Report Patient: MARINA SCHNEIDER Age: 67 years Sex: Female : 1955 Associated Diagnoses: None Author: Joaquim Rice DO DATE OF SURGERY: 04/11/2023 SURGEON: Joaquim Rice D.O. 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 She completed her course of IV antibiotics. She underwent aspiration of the hip on 02/13/2023 and Synovasure results were positive for continued infection. She has been followed by Dr. Chester with Infectious Disease. She presents today for repeat aspiration. The patient agreed to proceed with the above procedure after a discussion of the risks, benefits, complications, alternatives, and expectations. Please see hospital records and office notes for further details. PROCEDURE IN DETAIL: The correct operative site was identified and marked in the preoperative holding area. The patient was transported to the operating room and placed on the OR table in the supine position. She was administered IV sedation by the anesthesiologist. Surgical timeout was performed with all required personnel present. The skin 1 cm proximal and 1 cm anterior to the tip of the greater trochanter was prepped with Betadine. A spinal needle was inserted and directed into the right hip joint. Position of the spinal needle was checked with fluoroscopy. 2 mL of serosanguinous fluid was aspirated. The needle was withdrawn and a Band-Aid was applied. The patient was reversed from anesthesia having tolerated the procedure well. She was transported to the recovery room in fair condition. Sponge and needle counts were correct. Minimal blood loss, no complications. The fluid will once again be sent for Synovasure analysis through our office. Joaquim Rice D.O. Normal [facility] Comment on above: Result Comment: Elec tronically Signed By: Joaquim Rice DO\.br\Date and Time Signed: 04/11/23 12:58 EST Outpatient Surgery Discharge Instructionon 04-11-2023 Outpatient Surgery Discharge Instruction [place] [id number] Patient Discharge Instructions PERSON INFORMATION Name: FARTUN SCHNEIDER Date of : 1955 Current Date: 04/11/2023 13:05:43 PHYSICIANS Admitting Physician: Joaquim Rice DO Discharge Diagnosis: FARTUN SCHNEIDER has been given the following list of follow-up instructions, prescriptions, and patient education materials: IF UNABLE TO CONTACT YOUR PHYSICIAN AND YOU FEEL IT IS AN EMERGENCY, GO TO THE NEAREST EMERGENCY ROOM OR CALL 911 ZACH Em NANCY A, have received the attached patient education materials/instruction s and have verbalized understanding: May we do a follow up call? Yes No I was present when discharge instructions were given Patient Signature Date Clinican/Nurse Signature Date Follow up: With: Address: When: Joaquim Rice [address] [place], [place] [address] [address] [facility] (1) Comments: Call for followup appointment Pharmacy Information: Other: [facility] You may receive a survey from [facility] Srinivasan asking you to rate your care experience. Your feedback is important and will help us understand what we do well and how we can improve the quality of care we provide to you, your loved ones and our community. It?s an honor to serve you. Thank you for choosing [facility] HERE ARE THE MEDICATION CHANGES THAT OCCURRED DURING YOUR HOSPITAL STAY Medications to Continue with No Changes Other Medications acetaminophen 325 Milligram By Mouth 3 times a day. acetaminophen-oxycodo ne (Percocet 10/325 oral tablet) 1 Tablets By Mouth every 4 hours as needed for pain. ascorbic acid (ascorbic acid 500 mg Tab) 1 Tablets By Mouth twice a day (with meals). atorvastatin (atorvastatin 40 mg Tab) 1 Tablets By Mouth every day. bisacodyl (bisacodyl 5 mg Oral EC Tab) 2 Tablets By Mouth Once as needed Constipation. buPROPion (BuPROPion (Eqv-Wellbutrin SR) 150 mg/12 hours oral tablet, extended release) 1 Tablets By Mouth 2 times a day. carvedilol (carvedilol 12.5 mg Tab) 1 Tablets By Mouth 2 times a day. celecoxib (CeleBREX 100 mg Cap) 1 Capsules By Mouth 2 times a day as needed Pain. diazepam (Valium 5 mg Tab) 1 Tablets By Mouth every 8 hours as needed Spasm. Refills: 0. ferrous sulfate (ferrous sulfate 325 mg Tab) 1 Tablets By Mouth every day. insulin aspart (NovoLOG FlexPen 100 units/mL injectable solution) , SSI insulin glargine (Lantus 100 units/mL Injection-Insulin) 15 Units Subcutaneous once a day (at bedtime). levothyroxine (levothyroxine 112 mcg (0.112 mg) Tab) 1 Tablets By Mouth every day. lisinopril (lisinopril 40 mg Tab) 1 Tablets By Mouth every day. omeprazole (omeprazole 20 mg Cap-DR) 1 Capsules By Mouth every day. paroxetine (paroxetine 40 mg Tab) 1 Tablets By Mouth every day. potassium chloride (potassium chloride 20 mEq ER Tab) 1 Tablets By Mouth every day. trazodone (traZODONE 100 mg Tab) 1 Tablets By Mouth once a day (at bedtime). trazodone (traZODONE 50 mg Tab) 0.5 Tablets By Mouth every day. PATIENT EDUCATION INFORMATION Instructions: [place], [place] [facility] HIP INJECTION WITH ANESTHESIA Home Care Instructions Medications You may be given a prescription for pain medication. Please notify the office immediately if you have any allergies to pain medications. About Your Surgical Site You may remove the bandaid later today. Diet You may resume your regular diet [...] pain at the operative site, persistent vomiting. About your follow-up office visit You will be (more content not included)... Normal [facility] Patient Education - Texton 0 04-11-2023 Patient Education - Text [place], [place] [facility] HIP INJECTION WITH ANESTHESIA Home Care Instructions Medications You may be given a prescription for pain medication. Please notify the office immediately if you have any allergies to pain medications. About Your Surgical Site You may remove the bandaid later today. Diet You may resume your regular diet [...] pain at the operative site, persistent vomiting. About your follow-up office visit You will be given a card with your post-operative date and time for this appointment. Report any problems prior to that time. Joaquim Rice DO [facility] [address] [place], [place] [id number] Reviewed: [facility] Progress Note-Physicianon Progress Note-Physician Patient: FARTUN SCHNEIDER Age: 67 years Sex: Female : 1955 Associated Diagnoses: None Author: Can Kaplan Jr., DO Postoperative Information Postoperative disposition: Postoperative disposition: To PACU. Optimetrix number Anesthetic utilized: Monitored anesthesia care. Physical Examination Vital Signs 04/11/2023 14:16 EST Heart Rate Monitored 56 bpm LOW SpO2 99 % 04/11/2023 14:14 EST Systolic Blood Pressure 166 mmHg HI Diastolic Blood Pressure 58 mmHg LOW Mean Arterial Pressure, Monitered 94 mmHg 04/11/2023 13:23 EST Heart Rate Monitored 62 bpm SpO2 96 % 04/11/2023 13:22 EST Respiratory Rate 16 br/min 04/11/2023 13:22 EST SpO2 95 % 04/11/2023 13:21 EST Temperature Oral 36.5 DegC Systolic Blood Pressure 182 mmHg HI Diastolic Blood Pressure 69 mmHg Mean Arterial Pressure, Monitered 107 mmHg 04/11/2023 13:12 EST Temperature Temporal Artery 36.5 DegC Heart Rate Monitored 61 bpm Respiratory Rate Monitored 11 br/min Systolic Blood Pressure 151 mmHg HI Diastolic Blood Pressure 66 mmHg SpO2 95 % 04/11/2023 13:00 EST Heart Rate Monitored 68 bpm Respiratory Rate Monitored 14 br/min Systolic Blood Pressure 133 mmHg Diastolic Blood Pressure 63 mmHg SpO2 96 % 04/11/2023 12:55 EST Heart Rate Monitored 72 bpm Respiratory Rate Monitored 14 br/min Systolic Blood Pressure 111 mmHg Diastolic Blood Pressure 61 mmHg SpO2 96 % 04/11/2023 12:50 EST Heart Rate Monitored 63 bpm Respiratory Rate Monitored 12 br/min Systolic Blood Pressure 117 mmHg Diastolic Blood Pressure 52 mmHg LOW SpO2 100 % 04/11/2023 12:47 EST Temperature Temporal Artery 36.5 DegC Heart Rate Monitored 62 bpm Respiratory Rate Monitored 10 br/min Systolic Blood Pressure 120 mmHg Diastolic Blood Pressure 56 mmHg LOW SpO2 100 % Vital signs stable. Pain Assessment: Controlled. General: Awake, Alert, Appropriate. Respiratory: Adequate air exchange, Equal bilateral chest wall expansion, Non-labored. Cardiovascular: Stable, Normal peripheral perfusion. Neurological: Normal sensory function. Assessment Anesthetic outcome No anesthetic complications noted. Review / Management Condition: Stable. Plan Transfer/Discharge: Transfer/Discharge Discharge when meets criteria. Normal [facility] Comment on above: Result Comment: Elec tronically Signed By: Can Kaplan Jr., DO\.br\Date and Time Signed: 04/11/23 16:31 EST Progress Note-Physician Patient: FARTUN SCHNEIDER Age: 67 years Sex: Female : 1955 Associated Diagnoses: None Author: Can Kaplan Jr., DO Preoperative Information Anesthesia Preop Info NPO since midnight Anesthesia history: Patient history: No prior anesthetic problems. Informed consent: Signed by patient. Re-evaluation prior to induction: Initial evaluation reviewed: No significant change. Health Status Allergies: Allergic Reactions (Selected) Severity Not Documented Adhesive Bandage- Rash. Amoxicillin- Anaphylaxis. Celebrex- Rash. Goldbond cream- Rash. Neosporin- Rash. Noxema Triple Clean- Rash. Penicillin- Anaphylaxis. Sulfamethoxazole- Unknown., Allergies (8) Active Reaction Adhesive Bandage Rash amoxicillin Anaphylaxis Celebrex Rash goldbond cream Rash Neosporin Rash Noxema Triple Clean Rash penicillin Anaphylaxis sulfamethoxazole unknown Current medications: (Selected) Inpatient Medications Ordered HYDROmorphone 1 mg/mL injectable solution: 0.4 mg = 0.4 mL, Injection, IV Push, q4min PRN Pain for 5 dose(s), Stop date Limited # of times, Routine, Start date 04/11/23 10:40:00 EST, 04/11/23 10:40:00 EST Lactated Ringers IV Jane 1000 mL 1,000 mL: 1,000 mL, IV, 100 mL/hr, Routine, Start date 04/11/23 10:40:00 EST, 10 hour(s), Total volume (mL): 1,000, 68.1 kg, 1.75, m2 Lactated Ringers IV Jane 1000 mL 1,000 mL: 1,000 mL, IV, 150 mL/hr, Routine, Start date 04/11/23 11:00:00 EST, 6.7 hour(s), Total volume (mL): 1,000, 68.1 kg, 1.75, m2 Phenergan 25 mg/mL Injection: 6.25 mg = 0.25 mL, Injection, IV Push, q2min PRN Other (see comment) for 2 dose(s), Stop date Limited # of times, Routine, Start date 04/11/23 10:40:00 EST, 04/11/23 10:40:00 EST Prescriptions Prescribed DAPTOmycin 500 mg IV Inj.: 400 mg, IV, q24hr, # 38 EA, Refills(s) 0 LABS FOR DAPTOMYCIN: LABS FOR DAPTOMYCIN, WEEKLY BMP, CRP AND CPK ON 12/30/22, 01/06/23, 01/13/23,01/20/23,, 02/03/23, Print Requisition, Supply Percocet 5 mg-325 mg oral tablet: See Instructions, 40 tab(s), Refill(s) 0, 1-2 tab(s) Oral q4hr S.A.S (SALINE, ADMINISTRATION OF DRUG, SALINE): S.A.S (SALINE, ADMINISTRATION OF DRUG, SALINE), Print Requisition, Supply S.A.S.H (SALINE, ADMINISTRATION OF DRUG, SALINE, HEPARIN): S.A.S.H (SALINE, ADMINISTRATION OF DRUG, SALINE, HEPARIN), Print Requisition, Supply Valium 5 mg Tab: 5 mg = 1 tab(s), Oral, q8hr, PRN Spasm, # 20 tab(s), Refills(s) 0 Documented Medications Documented BuPROPion (Eqv-Wellbutrin SR) 150 mg/12 hours oral tablet, extended release: 150 mg = 1 tab(s), Oral, BID, Refills(s) 0 Cipro 500 mg Tab: 500 mg = 1 tab(s), Oral, q12hr, Refills(s) 0, Infection or prophylaxis for antibiotics Lantus 100 units/mL Injection-Insulin: 15 unit(s), SubCutaneous, Once a day (at bedtime), Refills(s) 0, Blood glucose NovoLOG FlexPen 100 units/mL injectable solution: Refills(s) 0 ascorbic acid 500 mg Tab: 500 mg = 1 tab(s), Oral, BIDWM, Refills(s) 0 atorvastatin 40 mg Tab: 40 mg = 1 tab(s), Oral, Daily, Refills(s) 0, High cholesterol bisacodyl 5 mg Oral EC Tab: 10 mg = 2 tab(s), Oral, Once, PRN Constipation, Refills(s) 0 carvedilol 12.5 mg Tab: 12.5 mg = 1 tab(s), Oral, BID, High blood pressure ferrous sulfate 325 mg Tab: 325 mg = 1 tab(s), Oral, Daily, Refills(s) 0 heparin flush: 1 unit(s), IV Push, q24hr, 1 unit/ml, total 5 ml flush, Refills(s) 0 levothyroxine 112 mcg (0.112 mg) Tab: 112 mcg = 1 tab(s), Oral, Daily, # 30 tab(s), Refills(s) 0, Thyroid lisinopril 40 mg Tab: 40 mg = 1 tab(s), Oral, Daily, Refills(s) 0 nystatin Top 100,000 units/g Crm 15 gram: 1 rhonda, Topical, BID, 15 gram, Refill(s) 0 omeprazole 20 mg Cap-DR: 20 mg = 1 cap(s), Oral, Daily, Refills(s) 0, Gas paroxetine 40 mg Tab: 40 mg = 1 tab(s), Oral, Daily, # 90 tab(s), Refills(s) 0 potassium chloride 20 mEq ER Tab: 20 mEq = 1 tab(s), Oral, Daily, Refills(s) 0, Prophylaxis traZODONE 100 mg Tab: 200 mg = 2 tab(s), Oral, Once a day (at bedtime), # 90 tab(s), Refills(s) 0, Insomnia, Home Medications (23) Active ascorbic acid 500 mg Tab 500 mg = 1 tab(s), Oral, BIDWM atorvastatin 40 mg Tab 40 mg = 1 tab(s), Oral, Daily bisacodyl 5 mg Oral EC Tab 10 mg = 2 tab(s), PRN, Oral, Once BuPROPion (Eqv-Wellbutrin SR) 150 mg/12 hours oral tablet, extended release 150 mg = 1 tab(s), Oral, BID carvedilol 12.5 mg Tab 12.5 mg = 1 tab(s), Oral, BID Cipro 500 mg Tab 500 mg = 1 tab(s), Oral, q12hr DAPTOmycin 500 mg IV Inj. 400 mg, IV, q24hr ferrous sulfate 325 mg Tab 325 mg = 1 tab(s), Oral, Daily heparin flush 1 unit(s), IV Push, q24hr LABS FOR DAPTOMYCIN 0 Lantus 100 units/mL Injection-Insulin 15 unit(s), SubCutaneous, Once a day (at bedtime) levothyroxine 112 mcg (0.112 mg) Tab 112 mcg = 1 tab(s), Oral, Daily lisinopril 40 mg Tab 40 mg = 1 tab(s), Oral, Daily NovoLOG FlexPen 100 units/mL injectable solution nystatin Top 100,000 units/g Crm 15 gram 1 rhonda, Topical, BID omeprazole 20 mg Cap-DR 20 mg = 1 cap(s), Oral, (more content not included)... Normal [facility] Comment on above: Result Comment: Elec tronically Signed By: Can Kaplan Jr., DO\.br\Date and Time Signed: 04/11/23 10:43 EST Insurance Correspondence Off iceon 04-10-2023 Insurance Correspondence Office [id number] .[id number] [facility] CHEMISTRYOrdered By: SYSTEM SYSTEM on 02-13-2023 Anion gap [Moles/Vol] 10 mmol/L Normal 6 - 16 mEq/L [facility] Remisol Chloride [Moles/Vol] 112 mmol/L High 101 - 111 mmol/ L [facility] Remisol CO2 [Moles/Vol] 21 mmol/L Normal 21 - 31 mmol/L [facility] Remisol Creatinine [Mass/Vol] 0.7 mg/dL Normal 0.5 - 1.3 mg/dL [facility] Remisol GFR/1.73 sq M.predicted among non-blacks MDRD (S/P/Bld) [Vol rate/Area] 94 mL/min/1.73 m2 Normal >=59mL/min/1.73 m2 [facility] Chem S Comment on above: [...] 139 mmol/L Normal 135 - 145 mmol/L [facility] Remisol Urea nitrogen [Mass/Vol] 14 mg/dL Normal 5 - 21 mg/dL [facility] Remisol CHEMISTRYOrdered By: Lab ROP User on 02-13-2023 Glucose [Mass/Vol] 149 mg/dL High 55 - 99 mg/dL [facility] POC Subsection POC Username NELLY ROJAS Invalid Interpretation Code [facility] [facility] [place] Subsection Sodium [Moles/Vol] 916790572586 mmol/L Invalid Interpretation Code [facility] POC Subsection Sodium [Moles/Vol] 259318571 mmol/L Invalid Interpretation Code [facility] [place] Subsection HEMATOLOGYOrdered By: Gail [...] 200.0 E9/L Normal 150.0 - 500.0 E9/L [facility]eAutoSS RBC (Bld) [#/Vol] 3.5 E12/L Low 4.3 - 5.9 E12/L [facility]eAutoSS WBC corrected for nucl RBC Auto (Bld) [#/Vol] 8.3 E9/L Normal 4.0 - 11.0 E9/L [facility] No Panel InformationOrdered By: Pita Butterfield on 02-13-2023 GS Occasional epithelia l cells Occasional White Blood Cells No organisms seen. [facility] CHEMISTRYOrdered By: Lab ROP User on 12-24-2022 Glucose [Mass/Vol] 102 mg/dL High 55 - 99 mg/dL [facility] POC Subsection Comment on above: Result Comment: Fausto rubi RN/ POC Username IRINA JANE Invalid Interpretation Code [facility] [place] Subsection Sodium [Moles/Vol] 532403203352 mmol/L Invalid Interpretation Code [facility] [place] Subsection Sodium [Moles/Vol] [id number] mmol/L Invalid Interpretation Code [facility] [place] Subsection Glucose [Mass/Vol] 194 mg/dL High 55 - 99 mg/dL [facility] POC Subsection Comment on above: Result Comment: Fausto CHAUDHARY POC Username IRINA JANE Invalid Interpretation Code [facility] [place] Subsection Sodium [Moles/Vol] 912941671285 mmol/L Invalid Interpretation Code [facility] POC Subsection Sodium [Moles/Vol] 783754415 mmol/L Invalid Interpretation Code [facility] [place] Subsection Glucose [Mass/Vol] 130 mg/dL High 55 - 99 mg/dL [facility] POC Subsection Comment on above: Result Comment: Fausto CHAUDHARY POC Username ANTOLIN SHEPPARD Invalid Interpretation Code [facility] [place] Subsection Sodium [Moles/Vol] [id number] mmol/L Invalid Interpretation Code [facility] [place] Subsection Sodium [Moles/Vol] 901629449 mmol/L Invalid Interpretation Code [facility] [place] Subsection CHEMISTRYOrdered By: SYSTEM SYSTEM on 12-23-2022 Anion gap [Moles/Vol] 1 mmol/L Low 6 - 16 mEq/L [facility] Remisol Chloride [Moles/Vol] 119 mmol/L High 101 - 111 mmol/ L [facility] Remisol CO2 [Moles/Vol] 25 mmol/L Normal 21 - 31 mmol/L [facility]isol Creatinine [Mass/Vol] 0.7 mg/dL Normal 0.5 - 1.3 mg/dL [facility] Remisol GFR/1.73 sq M.predicted among non-blacks MDRD (S/P/Bld) [Vol rate/Area] 94 mL/min/1.73 m2 Normal >=59mL/min/1.73 m2 [facility] Chem S Comment on above: Interpretive Data: C hronic kidney disease could be indicated at eGFR's of less than 60 mL/min/1.73m2. Kidney failure is indicated at less than 15 mL/min/1.73m2. Potassium [Moles/Vol] 4.0 mmol/L Normal 3.5 - 5.3 mmol/L [facility] Remisol Sodium [Moles/Vol] 141 mmol/L Normal 135 - 145 mmol/L [facility] Urea nitrogen [Mass/Vol] 15 mg/dL Normal 5 - 21 mg/dL [facility] HEMATOLOGYOrdered By: SYSTEM SYSTEM on 12-23-2022 Basophils/100 WBC (Bld) 0.5 % Normal 0.0 - 2.0 % [facility] Basophils/Leukocytes Auto (Bld) [Pure # fraction] 0.0 E9/L Normal 0.0 - 0.2 E9/L [facility] Eosinophils/100 WBC (Bld) 5.0 % Normal 0.0 - 8.0 % [facility] Eosinophils/Leukocyt es Auto (Bld) [Pure # fraction] 0.3 E9/L Normal 0.0 - 0.5 E9/L [facility] Lymphocytes/100 WBC (Bld) 23.3 % Normal 14.0 - 50.0 % [facility] Lymphocytes/Leukocyt es Auto (Bld) [Pure # fraction] 1.5 E9/L Normal 1.0 - 4.0 E9/L [facility] Monocytes/100 WBC (Bld) 14.2 % High 4.0 - 14.0 % [facility] Monocytes/Leukocytes Auto (Bld) [Pure # fraction] 0.9 E9/L Normal 0.2 - 1.0 E9/L [facility] Neutrophils/100 WBC (Bld) 57.0 % Normal 36.0 - 75.0 % [facility] Neutrophils/Leukocyt es Auto (Bld) [Pure # fraction] 3.6 E9/L Normal 2.0 - 7.5 E9/L [facility] HEMATOLOGYOrdered By: David Gasca on 12-23-2022 Erythrocyte distribution width (RBC) [Ratio] 17.4 % High 10.9 - 14.2 % [facility] Hematocrit (Bld) [Volume fraction] 21.5 % Low 34.0 - 46.0 % [facility] Hemoglobin (Bld) [Mass/Vol] 7.1 g/dL Low 12.0 - 16.0 gm/dL [facility] MCH (RBC) [Entitic mass] 28.2 pg Normal 27.0 - 34.0 pg [facility] MCHC (RBC) [Mass/Vol] 32.9 g/dL Normal 31.4 - 36.0 gm/dL [facility] MCV (RBC) [Entitic vol] 85.7 fL Normal 80.0 - 100.0 fL [facility] Platelet mean volume (Bld) [Entitic vol] 7.7 fL Normal 6.4 - 10.8 fL [facility] Platelets (Bld) [#/Vol] 316.0 E9/L Normal 150.0 - 500.0 E9/L [facility] RBC (Bld) [#/Vol] 2.5 E12/L Low 4.3 - 5.9 E12/L [facility] HemeAutoSS WBC corrected for nucl RBC Auto (Bld) [#/Vol] 6.3 E9/L Normal 4.0 - 11.0 E9/L [facility] CHEMISTRYOrdered By: SYSTEM SYSTEM on 12-22-2022 Anion gap [Moles/Vol] 5 mmol/L Low 6 - 16 mEq/L [facility] Remisol Chloride [Moles/Vol] 115 mmol/L High 101 - 111 mmol/ L [facility] Remisol CO2 [Moles/Vol] 23 mmol/L Normal 21 - 31 mmol/L [facility] Remisol Creatinine [Mass/Vol] 0.9 mg/dL Normal 0.5 - 1.3 mg/dL [facility] Remisol GFR/1.73 sq M.predicted among non-blacks MDRD (S/P/Bld) [Vol rate/Area] 70 mL/min/1.73 m2 Normal >=59mL/min/1.73 m2 [facility] [place] S Comment on above: Interpretive Data: C hronic kidney disease could be indicated at eGFR's of less than 60 mL/min/1.73m2. Kidney failure is indicated at less than 15 mL/min/1.73m2. Potassium [Moles/Vol] 3.7 mmol/L Normal 3.5 - 5.3 mmol/L [facility] Remisol Sodium [Moles/Vol] 139 mmol/L Normal 135 - 145 mmol/L [facility] Remisol Urea nitrogen [Mass/Vol] 21 mg/dL Normal 5 - 21 mg/dL [facility] Remisol HEMATOLOGYOrdered By: SYSTEM SYSTEM on 12-22-2022 Basophils/100 WBC (Bld) 0.5 % Normal 0.0 - 2.0 % [facility] Basophils/Leukocytes Auto (Bld) [Pure # fraction] 0.0 E9/L Normal 0.0 - 0.2 E9/L [facility] Eosinophils/100 WBC (Bld) 1.1 % Normal 0.0 - 8.0 % [facility] Eosinophils/Leukocyt es Auto (Bld) [Pure # fraction] 0.1 E9/L Normal 0.0 - 0.5 E9/L [facility] Lymphocytes/100 WBC (Bld) 20.4 % Normal 14.0 - 50.0 % [facility] Lymphocytes/Leukocyt es Auto (Bld) [Pure # fraction] 1.5 E9/L Normal 1.0 - 4.0 E9/L [facility] Monocytes/100 WBC (Bld) 11.4 % Normal 4.0 - 14.0 % [facility] Monocytes/Leukocytes Auto (Bld) [Pure # fraction] 0.9 E9/L Normal 0.2 - 1.0 E9/L [facility] Neutrophils/100 WBC (Bld) 66.6 % Normal 36.0 - 75.0 % [facility] Neutrophils/Leukocyt es Auto (Bld) [Pure # fraction] 5.0 E9/L Normal 2.0 - 7.5 E9/L [facility] HEMATOLOGYOrdered By: Kirstin King on 12-22-2022 Erythrocyte distribution width (RBC) [Ratio] 17.5 % High 10.9 - 14.2 % [facility] Hematocrit (Bld) [Volume fraction] 21.8 % Low 34.0 - 46.0 % [facility] Hemoglobin (Bld) [Mass/Vol] 7.2 g/dL Low 12.0 - 16.0 gm/dL [facility] MCH (RBC) [Entitic mass] 28.2 pg Normal 27.0 - 34.0 pg [facility] MCHC (RBC) [Mass/Vol] 32.9 g/dL Normal 31.4 - 36.0 gm/dL [facility] MCV (RBC) [Entitic vol] 85.7 fL Normal 80.0 - 100.0 fL [facility] Platelet mean volume (Bld) [Entitic vol] 7.8 fL Normal 6.4 - 10.8 fL [facility] Platelets (Bld) [#/Vol] 337.0 E9/L Normal 150.0 - 500.0 E9/L [facility] RBC (Bld) [#/Vol] 2.5 E12/L Low 4.3 - 5.9 E12/L [facility] HemeAutoSS WBC corrected for nucl RBC Auto (Bld) [#/Vol] 7.4 E9/L Normal 4.0 - 11.0 E9/L [facility] CHEMISTRYOrdered By: SYSTEM SYSTEM on 12-21-2022 Anion gap [Moles/Vol] 7 mmol/L Normal 6 - 16 mEq/L [facility] Remisol Chloride [Moles/Vol] 112 mmol/L High 101 - 111 mmol/ L [facility] Remisol CO2 [Moles/Vol] 24 mmol/L Normal 21 - 31 mmol/L [facility] Remisol Creatinine [Mass/Vol] 1.1 mg/dL Normal 0.5 - 1.3 mg/dL [facility] Remisol GFR/1.73 sq M.predicted among non-blacks MDRD (S/P/Bld) [Vol rate/Area] 55 mL/min/1.73 m2 Low >=59mL/min/1.73 m2 [facility] [place] S Comment on above: Interpretive Data: C hronic kidney disease could be indicated at eGFR's of less than 60 mL/min/1.73m2. Kidney failure is indicated at less than 15 mL/min/1.73m2. Potassium [Moles/Vol] 5.2 mmol/L Normal 3.5 - 5.3 mmol/L [facility] Remisol Sodium [Moles/Vol] 138 mmol/L Normal 135 - 145 mmol/L [facility] Remisol Urea nitrogen [Mass/Vol] 22 mg/dL High 5 - 21 mg/dL [facility] Rem[facility] HEMATOLOGYOrdered By: SYSTEM SYSTEM on 12-21-2022 Basophils/100 WBC (Bld) 0.1 % Normal 0.0 - 2.0 % [facility] Basophils/Leukocytes Auto (Bld) [Pure # fraction] 0.0 E9/L Normal 0.0 - 0.2 E9/L [facility] Eosinophils/100 WBC (Bld) 0.0 % Normal 0.0 - 8.0 % [facility] Eosinophils/Leukocyt es Auto (Bld) [Pure # fraction] 0.0 E9/L Normal 0.0 - 0.5 E9/L [facility] Lymphocytes/100 WBC (Bld) 6.5 % Low 14.0 - 50.0 % [facility] Lymphocytes/Leukocyt es Auto (Bld) [Pure # fraction] 0.4 E9/L Low 1.0 - 4.0 E9/L [facility] Monocytes/100 WBC (Bld) 8.7 % Normal 4.0 - 14.0 % [facility] Monocytes/Leukocytes Auto (Bld) [Pure # fraction] 0.6 E9/L Normal 0.2 - 1.0 E9/L [facility] Neutrophils/100 WBC (Bld) 84.7 % High 36.0 - 75.0 % [facility] Neutrophils/Leukocyt es Auto (Bld) [Pure # fraction] 5.8 E9/L Normal 2.0 - 7.5 E9/L [facility] HEMATOLOGYOrdered By: David Gasca on 12-21-2022 Erythrocyte distribution width (RBC) [Ratio] 17.9 % High 10.9 - 14.2 % [facility] Hematocrit (Bld) [Volume fraction] 23.9 % Low 34.0 - 46.0 % [facility] Hemoglobin (Bld) [Mass/Vol] 7.7 g/dL Low [...] 8.1 fL Normal 6.4 - 10.8 fL [facility] Platelets (Bld) [#/Vol] 320.0 E9/L Normal 150.0 - 500.0 E9/L [facility] RBC (Bld) [#/Vol] 2.7 E12/L Low 4.3 - 5.9 E12/L [facility] WBC corrected for nucl RBC Auto (Bld) [#/Vol] 6.8 E9/L Normal 4.0 - 11.0 E9/L [facility] BLOOD BANKOrdered By: Kirstin King on 12-20-2022 ABO/Rh Interp Positive Invalid Interpretation Code [facility] [place] Subsection ABSC Gel Interp Negative (12/20/22 12:15 PM) Normal [facility] BB Subsection CHEMISTRYOrdered By: SYSTEM SYSTEM on 12-20-2022 Calcium [...] 8.4 mg/dL Low 8.9 - 11.1 mg/dL [facility] Remisol CRP [Mass/Vol] 14.3 mg/dL High <=1.9mg/dL [facility] Remis ol Glucose [Mass/Vol] 166 mg/dL Normal 55 - 199 mg/dL [facility] Rem[facility] Comment on above: Interpretive Data: I f this glucose result represents a fasting glucose, interpretation should refer to the following reference range: 55-99 mg/dL Urea nitrogen/Creatinine [Mass ratio] 20 mg/mg Normal 10 - 20 [facility] HEMATOLOGYOrdered By: Anju Marino on 12-20-2022 Band form neutrophils/100 WBC (Bld) 0 % Normal 0 - 10 % [facility] Basophils/100 WBC (Bld) 0 % Normal 0 - 2 % [facility] Basophils/Leukocytes Manual cnt (Bld) [Pure # fraction] 0.0 E9/L Normal 0.0 - 0.2 E9/L [facility] Eosinophils/100 WBC (Bld) 2 % Normal 0 - 8 % [facility] Eosinophils/Leukocyt es Manual cnt (Bld) [Pure # fraction] 0.1 E9/L Normal 0.0 - 0.5 E9/L [facility] Lymphocytes/100 WBC (Bld) 17 % Normal 14 - 50 % [facility] Lymphocytes/Leukocyt es Manual cnt (Bld) [Pure # fraction] 1.0 E9/L Normal 1.0 - 4.0 E9/L [facility] Monocytes/100 WBC (Bld) 9 % Normal 4 - 14 % [facility] Monocytes/Leukocytes Manual cnt (Bld) [Pure # fraction] 0.5 E9/L Normal 0.2 - 1.0 E9/L [facility] Neutrophils/Leukocyt es Auto (Bld) [Pure # fraction] 4.2 E9/L Normal 2.0 - 7.5 E9/L [facility] Sed Rate Automated 87 mm/h High 0 - 34 mm/hr [facility] Segmented neutrophils/100 WBC (Bld) 72 % Normal 36 - 75 % [facility] Variant lymphocytes LM Ql (Bld) 0 % Normal <=0% [facility] No Panel InformationOrdered By: Pita Butterfield on 12-20-2022 GS 2+ White Blood Cells 1+ Gram Positive Rods Occassional crystals seen on the slide [facility] Wound Culture 1+ Gram Positive Jyotsna s resembling diphtheroids [facility] GS 1+ White Blood Cells 2+ Gram Positive Rods Occassional crystals seen on the slide [facility] Wound Culture 1+ Gram Positive Jyotsna s resembling diphtheroids [facility] No Panel InformationOrdered By: [facility] MICROBIOLOGY on 12-19-2022 Blood Culture Charcoal No growth at 4 days. Final to follow at 7 days. [facility] CHEMISTRYOrdered By: Lab ROP User on 11-29-2022 Glucose [Mass/Vol] 209 mg/dL High 55 - 99 mg/dL [facility] POC Subsection Comment on above: Result Comment: Fausto rubi RN/ POC Device SN [id number] Invalid Interpretation Code [facility] POC Subsection POC User ID [id number] Invalid Interpretation Code [facility] POC Subsection POC Username STEPHANIE JANE Invalid Interpretation Code [facility] POC Subsection Glucose [Mass/Vol] 147 mg/dL High 55 - 99 mg/dL [facility] POC Subsection Comment on above: Result Comment: Fausto rubi RN/ POC Device SN [id number] Invalid Interpretation Code [facility] POC Subsection POC User ID [id number] Invalid Interpretation Code [facility] POC Subsection POC Username STEPHANIE JANE Invalid Interpretation Code [facility] POC Subsection CHEMISTRYOrdered By: Lab ROP User on 11-28-2022 Glucose [Mass/Vol] 141 mg/dL High 55 - 99 mg/dL [facility] POC Subsection Comment on above: Result Comment: Fausto rubi RN/ POC Device SN [id number] Invalid Interpretation Code [facility] POC Subsection POC User ID [id number] Invalid Interpretation Code [facility] POC Subsection POC Username JOANNA AG Invalid Interpretation Code [facility] [place] Subsection CHEMISTRYOrdered By: SYSTEM SYSTEM on 11-28-2022 Anion gap [Moles/Vol] 7 mmol/L Normal 6 - 16 mEq/L [facility] Remisol Chloride [Moles/Vol] 112 mmol/L High 101 - 111 mmol/ L [facility] Remisol CO2 [Moles/Vol] 25 mmol/L Normal 21 - 31 mmol/L [facility] Rem[facility] Creatinine [Mass/Vol] 0.9 mg/dL Normal 0.5 - 1.3 mg/dL [facility] Rem[facility] GFR/1.73 sq M.predicted among non-blacks MDRD (S/P/Bld) [Vol rate/Area] 70 mL/min/1.73 m2 Normal >=59mL/min/1.73 m2 [facility] [place] S Potassium [Moles/Vol] 3.6 mmol/L Normal 3.5 - 5.3 mmol/L [facility] Remisol Sodium [Moles/Vol] 140 mmol/L Normal 135 - 145 mmol/L [facility] Remisol Urea nitrogen [Mass/Vol] 13 mg/dL Normal 5 - 21 mg/dL [facility] Remisol HEMATOLOGYOrdered By: SYSTEM SYSTEM on 11-28-2022 Basophils/100 WBC (Bld) 0.2 % Normal 0.0 - 2.0 % [facility] Basophils/Leukocytes Auto (Bld) [Pure # fraction] 0.0 E9/L Normal 0.0 - 0.2 E9/L [facility] Eosinophils/100 WBC (Bld) 5.7 % Normal 0.0 - 8.0 % [facility] Eosinophils/Leukocyt es Auto (Bld) [Pure # fraction] 0.5 E9/L Normal 0.0 - 0.5 E9/L [facility] Lymphocytes/100 WBC (Bld) 17.0 % Normal 14.0 - 50.0 % [facility] Lymphocytes/Leukocyt es Auto (Bld) [Pure # fraction] 1.5 E9/L Normal 1.0 - 4.0 E9/L [facility] Monocytes/100 WBC (Bld) 11.7 % Normal 4.0 - 14.0 % [facility] Monocytes/Leukocytes Auto (Bld) [Pure # fraction] 1.1 E9/L High 0.2 - 1.0 E9/L [facility] Neutrophils/100 WBC (Bld) 65.4 % Normal 36.0 - 75.0 % [facility] Neutrophils/Leukocyt es Auto (Bld) [Pure # fraction] 5.9 E9/L [...] 35.0 g/dL Normal 31.4 - 36.0 gm/dL [facility] MCV (RBC) [Entitic vol] 89.1 fL Normal 80.0 - 100.0 fL [facility] Platelet mean volume (Bld) [Entitic vol] 9.0 fL Normal 6.4 - 10.8 fL [facility] Platelets (Bld) [#/Vol] 158.0 E9/L Normal 150.0 - 500.0 E9/L [facility] RBC (Bld) [#/Vol] 2.8 E12/L Low 4.3 - 5.9 E12/L [facility] HemeAutoSS WBC corrected for nucl RBC Auto (Bld) [#/Vol] 9.1 E9/L Normal 4.0 - 11.0 E9/L [facility] CHEMISTRYOrdered By: SYSTEM SYSTEM on 11-27-2022 Anion gap [Moles/Vol] 7 mmol/L Normal 6 - 16 mEq/L [facility]isol Calcium [Mass/Vol] 8.1 mg/dL Low 8.9 - 11.1 mg/dL [facility] Remisol Chloride [Moles/Vol] 114 mmol/L High 101 - 111 mmol/ L [facility] Remisol CO2 [Moles/Vol] 23 mmol/L Normal 21 - 31 mmol/L [facility] Remisol Creatinine [Mass/Vol] 1.0 mg/dL Normal 0.5 - 1.3 mg/dL [facility] Remisol GFR/1.73 sq M.predicted among non-blacks MDRD (S/P/Bld) [Vol rate/Area] 61 mL/min/1.73 m2 Normal >=59mL/min/1.73 m2 [facility] Chem S Glucose [Mass/Vol] 255 mg/dL High 55 - 199 mg/dL [facility] Remisol Potassium [Moles/Vol] 3.8 mmol/L Normal 3.5 - 5.3 mmol/L [facility] Remisol Sodium [Moles/Vol] 140 mmol/L Normal 135 - 145 mmol/L [facility] Remisol Urea nitrogen [Mass/Vol] 19 mg/dL Normal 5 - 21 mg/dL [facility]isol Urea nitrogen/Creatinine [Mass ratio] 19 mg/mg Normal 10 - 20 [facility]isol HEMATOLOGYOrdered By: SYSTEM SYSTEM on 11-27-2022 Basophils/100 WBC (Bld) 0.2 % Normal 0.0 - 2.0 % [facility] Basophils/Leukocytes Auto (Bld) [Pure # fraction] 0.0 E9/L Normal 0.0 - 0.2 E9/L [facility] Eosinophils/100 WBC (Bld) 1.8 % Normal 0.0 - 8.0 % [facility] Eosinophils/Leukocyt es Auto (Bld) [Pure # fraction] 0.2 E9/L Normal 0.0 - 0.5 E9/L [facility] Lymphocytes/100 WBC (Bld) 16.0 % Normal 14.0 - 50.0 % [facility] Lymphocytes/Leukocyt es Auto (Bld) [Pure # fraction] 1.4 E9/L Normal 1.0 - 4.0 E9/L [facility] Monocytes/100 WBC (Bld) 11.9 % Normal 4.0 - 14.0 % [facility] Monocytes/Leukocytes Auto (Bld) [Pure # fraction] 1.0 E9/L Normal 0.2 - 1.0 E9/L [facility] Neutrophils/100 WBC (Bld) 70.1 % Normal 36.0 - 75.0 % [facility] Neutrophils/Leukocyt es Auto (Bld) [Pure # fraction] 6.2 E9/L Normal 2.0 - 7.5 E9/L [facility] HEMATOLOGYOrdered By: Alliso n Emma on 11-27-2022 Erythrocyte distribution width (RBC) [Ratio] [...] 88.6 fL Normal 80.0 - 100.0 fL [facility] Platelet mean volume (Bld) [Entitic vol] 9.3 fL Normal 6.4 - 10.8 fL [facility] Platelets (Bld) [#/Vol] 133.0 E9/L Low 150.0 - 500.0 E9/L [facility] RBC (Bld) [#/Vol] 2.6 E12/L Low 4.3 - 5.9 E12/L [facility] HemeAuto[facility] WBC corrected for nucl RBC Auto (Bld) [#/Vol] 8.8 E9/L Normal 4.0 - 11.0 E9/L [facility] CHEMISTRYOrdered By: SYSTEM SYSTEM on 11-26-2022 Anion gap [Moles/Vol] 7 mmol/L Normal 6 - 16 mEq/L [facility] Remisol Calcium [Mass/Vol] 7.9 mg/dL Low 8.9 - 11.1 mg/dL [facility] Remisol Chloride [Moles/Vol] 108 mmol/L Normal 101 - 111 mmol/ L [facility] Remisol CO2 [Moles/Vol] 22 mmol/L Normal 21 - 31 mmol/L [facility] [place] Creatinine [Mass/Vol] 1.3 mg/dL Normal 0.5 - 1.3 mg/dL [facility] [place] GFR/1.73 sq M.predicted among non-blacks MDRD (S/P/Bld) [Vol rate/Area] 45 mL/min/1.73 m2 Low >=59mL/min/1.73 m2 [facility] [place] S Glucose [Mass/Vol] 353 mg/dL High 55 - 199 mg/dL [facility] Remisol Potassium [Moles/Vol] 4.1 mmol/L Normal 3.5 - 5.3 mmol/L [facility] [place] Sodium [Moles/Vol] 133 mmol/L Low 135 - 145 mmol/L [facility] [place] Urea nitrogen [Mass/Vol] 21 mg/dL Normal 5 - 21 mg/dL [facility] [place] Urea nitrogen/Creatinine [Mass ratio] 16 mg/mg Normal 10 - 20 [facility] [place] HEMATOLOGYOrdered By: Chrissy Bradford on 11-26-2022 Hematocrit [...] Normal 0.0 - 8.0 % [facility] HemeAutoSS Eosinophils/Leukocyt es Auto (Bld) [Pure # fraction] 0.0 E9/L Normal 0.0 - 0.5 E9/L [facility]eAutoSS Lymphocytes/100 WBC (Bld) 4.8 % Low 14.0 - 50.0 % [facility] HemeAutoSS Lymphocytes/Leukocyt es Auto (Bld) [Pure # fraction] 0.4 E9/L Low 1.0 - 4.0 E9/L [facility]eAutoSS Monocytes/100 WBC (Bld) 6.9 % Normal 4.0 - 14.0 % [facility] HemeAutoSS Monocytes/Leukocytes Auto (Bld) [Pure # fraction] 0.5 E9/L Normal 0.2 - 1.0 E9/L [facility]eAutoSS Neutrophils/100 WBC (Bld) 88.2 % High 36.0 - 75.0 % [facility] HemeAutoSS Neutrophils/Leukocyt es Auto (Bld) [Pure # fraction] 6.6 E9/L [...] 121.0 E9/L Low 150.0 - 500.0 E9/L [facility]eAutoSS RBC (Bld) [#/Vol] 2.5 E12/L Low 4.3 - 5.9 E12/L [facility]SS WBC corrected for nucl RBC Auto (Bld) [#/Vol] 7.5 E9/L Normal 4.0 - 11.0 E9/L [facility]eAutoSS CHEMISTRYOrdered By: SYSTEM SYSTEM on 11-25-2022 Calcium [Mass/Vol] 8.6 mg/dL Low 8.9 - 11.1 mg/dL [facility] Remisol Glucose [Mass/Vol] 98 mg/dL Normal 55 - 199 mg/dL [facility] Remisol Iron [Mass/Vol] 42 ug/dL Normal 35 - 153 mcg/dL [facility] Remisol Iron binding capacity [Mass/Vol] 260 ug/dL Normal 250 - 400 mcg/dL [facility] Remiso l Iron saturation [Mass fraction] 16 % Low [...] (11/25/22 3:09 AM) Normal Negative [facility] Remisol URINALYSISOrdered By: David Gasca on 11-25-2022 Bilirubin Ql (U) Negative (11/25/22 3:09 AM) Normal Negative [facility] UA Auto SS Clarity (U) Clear (11/25/22 3:09 AM) Normal Clear [facility] UA Auto SS Color (U) Yellow (11/25/22 3:09 AM) Normal Yellow [facility] UA Auto SS Epithelial cells.squamous LM.HPF (Urine sed) [#/Area] 0-2 /HPF Normal 0-2/HPF [facility] UA Auto SS Glucose Test strip (U) [Mass/Vol] Negative (11/25/22 3:09 AM) Normal Negative [facility] UA Auto SS Hemoglobin Ql (U) Negative (11/25/22 3:09 AM) Normal Negative [facility] UA Auto SS Ketones (U) [Mass/Vol] Negative (11/25/22 3:09 AM) Normal Negative [facility] UA Auto SS [place].plasma/Lith[place] um.RBC (Bld) [Mass ratio] 0-3 /HPF Normal 0-3/HPF [...] [facility] UA Auto SS Urobilinogen Qn (U) [id number] {Papa'U}/dL Normal 0.0 - 1.0 EU/dL [facility] UA Auto SS WBC Auto Ql (U) Trace *ABN* (11/25/22 3:09 AM) Invalid Interpretation Code Negative [facility] UA Auto SS WBC LM.HPF (Urine sed) [#/Area] 0-5 /HPF Normal 0-5/HPF [facility] UA Auto SS BLOOD BANKOrdered By: David Gasca on 11-24-2022 ABO/Rh Interp Positive Invalid Interpretation Code [facility] BB Subsection ABSC Gel Interp Negative (11/24/22 12:57 AM) Normal [facility] BB Subsection CHEMISTRYOrdered By: SYSTEM SYSTEM on 11-24-2022 Cobalamin [...] ug/dL Normal 250 - 400 mcg/dL [facility] Remiso l LDH [Catalytic activity/Vol] 158 [iU]/d Normal 93 [...] 2.5 second(s) [facility] Auto Coag HEMATOLOGYOrdered By: Kirstin King on 11-24-2022 Reticulocytes/100 RBC (Bld) 0.9 % Normal 0.5 - 1.5 % [facility] HemeAutoSS Comment on above: Result Comment: This Reticulocyte Count Has Been Corrected For Anemia CHEMISTRYOrdered By: SYSTEM SYSTEM on 10-02-2022 Albumin [...] 15 mmol/L Normal 6 - 16 mEq/L [facility] Remisol AST [Catalytic activity/Vol] 20 [iU]/d Normal 5 - 43 Int._Unit/L [facility] Remisol Bilirubin [Mass/Vol] 0.7 mg/dL Normal 0.0 - 1.1 mg/dL [facility] Remisol Bilirubin.direct [Mass/Vol] 0.1 mg/dL Normal 0.1 - 0.4 mg/dL [facility] Remisol Bilirubin.indirect [Mass or moles/Vol] 0.6 mg/dL Normal 0.1 - 0.9 mg/dL [facility] Remisol Calcium [Mass/Vol] 9.7 mg/dL Normal 8.9 - 11.1 mg/dL [facility] Chloride [Moles/Vol] 107 mmol/L Normal 101 - 111 mmol/ L [facility] CO2 [Moles/Vol] 19 mmol/L Low 21 - 31 mmol/L [facility] Creatinine [Mass/Vol] 1.1 mg/dL Normal 0.5 - 1.3 mg/dL [facility] Remisol GFR/1.73 sq M.predicted among non-blacks MDRD (S/P/Bld) [Vol rate/Area] 55 mL/min/1.73 m2 Low >=59mL/min/1.73 m2 [facility] S Globulin (S) [Mass/Vol] 3.5 g/dL Normal 1.4 - 4.0 gm/dL [facility] Remisol Glucose [Mass/Vol] 186 mg/dL Normal 55 - 199 mg/dL [facility] Lipase [Catalytic activity/Vol] 41 U/L Normal 13 - 58 unit/L [facility] Potassium [Moles/Vol] 3.1 mmol/L Low 3.5 - 5.3 mmol/L [facility] Rem[facility] Protein [Mass/Vol] 7.6 g/dL Normal 6.0 - 7.8 gm/dL [facility] [place] Remisol Sodium [Moles/Vol] 138 mmol/L Normal 135 - 145 mmol/L [facility] Remisol Urea nitrogen [Mass/Vol] 16 mg/dL Normal 5 - 21 mg/dL [facility] Remisol Urea nitrogen/Creatinine [Mass ratio] 14 mg/mg Normal 10 - 20 [facility] Remisol HEMATOLOGYOrdered By: SYSTEM SYSTEM on 10-02-2022 Basophils/100 WBC (Bld) 0.5 % Normal 0.0 - 2.0 % [facility] HemeAutoSS Basophils/Leukocytes Auto (Bld) [Pure # fraction] 0.0 E9/L Normal 0.0 - 0.2 E9/L [facility] HemeAutoSS Eosinophils/100 WBC (Bld) 1.2 % Normal 0.0 - 8.0 % [facility] HemeAutoSS Eosinophils/Leukocyt es Auto (Bld) [Pure # fraction] 0.1 E9/L Normal 0.0 - 0.5 E9/L [facility] HemeAutoSS Lymphocytes/100 WBC (Bld) 19.9 % Normal 14.0 - 50.0 % [facility] HemeAutoSS Lymphocytes/Leukocyt es Auto (Bld) [Pure # fraction] 1.5 E9/L Normal 1.0 - 4.0 E9/L [facility] HemeAutoSS Monocytes/100 WBC (Bld) 12.7 % Normal 4.0 - 14.0 % [facility] HemeAutoSS Monocytes/Leukocytes Auto (Bld) [Pure # fraction] 1.0 E9/L Normal 0.2 - 1.0 E9/L [facility] HemeAutoSS Neutrophils/100 WBC (Bld) 65.7 % Normal 36.0 - 75.0 % [facility] HemeAutoSS Neutrophils/Leukocyt es Auto (Bld) [Pure # fraction] 5.1 E9/L Normal 2.0 - 7.5 E9/L [facility] HemeAutoSS HEMATOLOGYOrdered By: Jose Martin Brar on 10-02-2022 Erythrocyte distribution width (RBC) [Ratio] 13.4 % Normal 10.9 - 14.2 % [facility] HemeAutoSS Hematocrit (Bld) [Volume fraction] 38.1 % Normal 34.0 - 46.0 % [facility] HemeAutoSS Hemoglobin (Bld) [Mass/Vol] 12.6 g/dL Normal 12.0 - 16.0 gm/dL [facility] HemeAutoSS MCH (RBC) [Entitic mass] 29.1 pg Normal 27.0 - 34.0 pg [facility]eAutoSS MCHC (RBC) [Mass/Vol] 33.0 g/dL Normal 31.4 - 36.0 gm/dL [facility] HemeAutoSS MCV (RBC) [Entitic vol] 88.3 fL Normal 80.0 - 100.0 fL [facility] HemeAutoSS Platelet mean volume (Bld) [Entitic vol] 8.2 fL Normal 6.4 - 10.8 fL [facility] HemeAutoSS Platelets (Bld) [#/Vol] 226.0 E9/L Normal 150.0 - 500.0 E9/L [facility] HemeAutoSS RBC (Bld) [#/Vol] 4.3 E12/L Normal 4.3 - 5.9 E12/L [facility] HemeAutoSS WBC corrected for nucl RBC Auto (Bld) [#/Vol] 7.8 E9/L Normal 4.0 - 11.0 E9/L [facility] [place] [facility] BLOOD BANKOrdered By: Jose Martin Brar on 09-04-2022 ABO/Rh Interp Positive Invalid Interpretation Code [facility] BB Subsection ABSC Gel Interp Negative (09/04/22 4:10 PM) Normal [facility] BB Subsection CHEMISTRYOrdered By: Lab ROP User on 09-04-2022 Glucose [Mass/Vol] 241 mg/dL High 55 - 99 mg/dL [facility] POC Subsection Comment on above: Result Comment: Fausto rubi RN/ POC Device SN [id number] Invalid Interpretation Code [facility] POC Subsection POC User ID [id number] Invalid Interpretation Code [facility] P[place] Subsection POC Username FERNANDO ALEKSANDAR Invalid Interpretation Code [facility] [place] Subsection CHEMISTRYOrdered By: SYSTEM [...] 11 mmol/L Normal 6 - 16 mEq/L [facility] Remisol AST [Catalytic activity/Vol] 16 [iU]/d Normal 5 - 43 Int._Unit/L [facility] Remisol Bilirubin [Mass/Vol] 0.6 mg/dL Normal 0.0 - 1.1 mg/dL [facility] Remisol Bilirubin.direct [Mass/Vol] 0.2 mg/dL Normal 0.1 - 0.4 mg/dL [facility] Remisol Bilirubin.indirect [Mass or moles/Vol] 0.4 mg/dL Normal 0.1 - 0.9 mg/dL [facility] Remisol Calcium [Mass/Vol] 9.0 mg/dL Normal 8.9 - 11.1 mg/dL [facility] Remisol Chloride [Moles/Vol] 112 mmol/L High 101 - 111 mmol/ L [facility] Remisol CO2 [Moles/Vol] 20 mmol/L Low 21 - 31 mmol/L [facility] Remisol Creatinine [Mass/Vol] 0.9 mg/dL Normal 0.5 - 1.3 mg/dL [facility] Remisol Ethanol [Mass/Vol] mg/dL Normal <=7mg/dL [facility] [place] emisol GFR/1.73 sq M.predicted among non-blacks MDRD (S/P/Bld) [Vol rate/Area] 70 mL/min/1.73 m2 Normal >=59mL/min/1.73 m2 [facility] Chem S Globulin (S) [Mass/Vol] [...] 7.8 gm/dL [facility] Remisol Sodium [Moles/Vol] 140 mmol/L Normal 135 [...] Normal 0.0 - 8.0 % [facility] HemeAutoSS Eosinophils/Leukocyt es Auto (Bld) [Pure # fraction] 0.1 E9/L Normal 0.0 - 0.5 E9/L [facility] HemeAutoSS Lymphocytes/100 WBC (Bld) 19.6 % Normal 14.0 - 50.0 % [facility] HemeAutoSS Lymphocytes/Leukocyt es Auto (Bld) [Pure # fraction] 1.2 E9/L Normal 1.0 - 4.0 E9/L [facility] HemeAutoSS Monocytes/100 WBC (Bld) 11.2 % Normal 4.0 - 14.0 % [facility] HemeAutoSS Monocytes/Leukocytes Auto (Bld) [Pure # fraction] 0.7 E9/L Normal 0.2 - 1.0 E9/L [facility]eAutoSS Neutrophils/100 WBC (Bld) 67.0 % Normal 36.0 - 75.0 % [facility] HemeAutoSS Neutrophils/Leukocyt es Auto (Bld) [Pure # fraction] 4.0 E9/L [...] 13 mmol/L Normal 6 - 16 mEq/L [facility] Remisol AST [Catalytic activity/Vol] 29 [iU]/d Normal 5 - 43 Int._Unit/L [facility] Remisol Bilirubin [Mass/Vol] 0.5 mg/dL Normal 0.0 - 1.1 mg/dL [facility] Remisol Bilirubin.direct [Mass/Vol] mg/dL Normal 0.1 - 0.4 mg/dL [facility] Remisol Bilirubin.indirect [Mass or moles/Vol] Unable to [...] rate/Area] 62 mL/min/1.73 m2 Normal >=59mL/min/1.73 m2 [facility] [place] Chem S Globulin (S) [Mass/Vol] 3.7 g/dL Normal 1.4 - 4.0 gm/dL [facility] Remisol Glucose [Mass/Vol] 203 mg/dL High 55 - 199 mg/dL [facility] Remisol Lactate [Mass/Vol] 1.9 mmol/L Normal 0.5 - 2.2 mmol/L [facility] Remisol Potassium [Moles/Vol] 3.7 mmol/L Normal 3.5 - 5.3 mmol/L [facility] Remisol Protein [Mass/Vol] 7.6 g/dL Normal 6.0 - 7.8 gm/dL [facility] [place] Remisol Sodium [Moles/Vol] 138 [...] 212 mg/dL High 55 - 99 mg/dL [facility] C POC Subsection POC Device SN [id number] Invalid Interpretation Code [facility] [place]OC Subsection POC User ID [id number] Invalid Interpretation Code [facility] POC Subsection POC Username STEVE KIMBALL Invalid Interpretation Code [facility] POC Subsection COAGULATIONOrdered By: Vinnie [...] Normal 0.0 - 8.0 % [facility] HemeAutoSS Eosinophils/Leukocyt es Auto (Bld) [Pure # fraction] 0.1 E9/L Normal 0.0 - 0.5 E9/L [facility] HemeAutoSS Lymphocytes/100 WBC (Bld) 26.3 % Normal 14.0 - 50.0 % [facility] HemeAutoSS Lymphocytes/Leukocyt es Auto (Bld) [Pure # fraction] 1.3 E9/L Normal 1.0 - 4.0 E9/L [facility] HemeAutoSS Monocytes/100 WBC (Bld) 10.8 % Normal 4.0 - 14.0 % [facility] HemeAutoSS Monocytes/Leukocytes Auto (Bld) [Pure # fraction] 0.5 E9/L Normal 0.2 - 1.0 E9/L [facility] HemeAutoSS Neutrophils/100 WBC (Bld) 59.7 % Normal 36.0 - 75.0 % [facility] HemeAutoSS Neutrophils/Leukocyt es Auto (Bld) [Pure # fraction] 2.9 E9/L [...] [#/Area] 0-2 /HPF Normal 0-2/HPF [facility] UA Auto SS Glucose Test strip (U) [Mass/Vol] 3+ *ABN* (08/09/22 2:08 PM) Invalid Interpretation Code Negative [facility] UA Auto SS Hemoglobin Ql (U) Negative (08/09/22 2:08 PM) Normal Negative [facility] UA Auto SS Ketones (U) [Mass/Vol] Negative (08/09/22 2:08 PM) Normal Negative [facility] UA Auto SS [place].plasma/Lithi um.RBC (Bld) [Mass ratio] 0-3 /HPF Normal 0-3/HPF [...] [facility] UA Auto SS Urobilinogen Qn (U) 0.2715655 {Papa'U}/dL Normal 0.0 - 1.0 EU/dL [facility] UA Auto SS WBC Auto Ql (U) Negative (08/09/22 2:08 PM) Normal Negative [facility] UA Auto SS WBC LM.HPF (Urine sed) [#/Area] 0-5 /HPF Normal 0-5/HPF [facility] UA Auto SS Progress Noteson 07-18-2022 Veneer Jointer Authentication Interface Message Text EMERGENCY TRIAGE, TREAT AND TRANSPORT (ET3) DOCUMENTATION OF TELEHEALTH VISIT Date / Time: 07/18/2022 / 1615 Name: Fartun Myers NOTE: CORRECT SPELLING MAY BE ZACH : 1955 SSN: (Not on file) EMS Agency: [facility] [x] Verbal consent obtained [] [...] Completed by: Naseem Hardy MD Normal [employer] CHEMISTRYOrdered By: SYSTEM SYSTEM on 03-13-2022 [...] 13 mmol/L Normal 6 - 16 mEq/L [facility] Remisol AST [Catalytic activity/Vol] 16 [iU]/d Normal 5 - 43 Int._Unit/L [facility] Remisol Bilirubin [Mass/Vol] 0.6 mg/dL Normal 0.0 - 1.1 mg/dL [facility] Remisol Bilirubin.direct [Mass/Vol] 0.1 mg/dL Normal 0.1 - 0.4 mg/dL [facility] Remisol Bilirubin.indirect [Mass or moles/Vol] 0.5 mg/dL Normal 0.1 - 0.9 mg/dL [facility] Remisol Calcium [Mass/Vol] 8.6 mg/dL Low 8.9 - 11.1 mg/dL [facility] Remisol Chloride [Moles/Vol] 105 mmol/L Normal 101 - 111 mmol/ L [facility] Remisol CO2 [Moles/Vol] 21 mmol/L Normal 21 - 31 mmol/L [facility] Remisol Creatinine [Mass/Vol] 1.0 mg/dL Normal 0.5 - 1.3 mg/dL [facility] Remisol GFR/1.73 sq M.predicted among blacks MDRD (S/P/Bld) [Vol rate/Area] mL/min/1.73 m2 Normal >=59mL/min/1.73 m2 [facility] Chem S GFR/1.73 sq M.predicted among non-blacks MDRD (S/P/Bld) [Vol rate/Area] 55 mL/min/1.73 m2 Low >=59mL/min/1.73 m2 [facility] Chem S Globulin (S) [Mass/Vol] 3.3 g/dL Normal 1.4 - 4.0 gm/dL [facility] Remisol Glucose [Mass/Vol] 123 mg/dL Normal 55 - 199 mg/dL [facility] Rem[facility] Lipase [Catalytic activity/Vol] 39 U/L Normal 13 - 58 unit/L [facility] Remisol Potassium [Moles/Vol] 4.2 mmol/L Normal 3.5 - 5.3 mmol/L [facility] Remisol Protein [Mass/Vol] 6.9 g/dL Normal 6.0 - 7.8 gm/dL [facility] [place] Remisol Sodium [Moles/Vol] 135 mmol/L Normal 135 [...] Normal 0.0 - 8.0 % [facility] HemeAutoSS Eosinophils/Leukocyt es Auto (Bld) [Pure # fraction] 0.2 E9/L Normal 0.0 - 0.5 E9/L [facility] HemeAutoSS Lymphocytes/100 WBC (Bld) 24.6 % Normal 14.0 - 50.0 % [facility] HemeAutoSS Lymphocytes/Leukocyt es Auto (Bld) [Pure # fraction] 1.7 E9/L Normal 1.0 - 4.0 E9/L [facility] HemeAutoSS Monocytes/100 WBC (Bld) 12.3 % Normal 4.0 - 14.0 % [facility] HemeAutoSS Monocytes/Leukocytes Auto (Bld) [Pure # fraction] 0.8 E9/L Normal 0.2 - 1.0 E9/L [facility] HemeAutoSS Neutrophils/100 WBC (Bld) 59.4 % Normal 36.0 - 75.0 % [facility] HemeAutoSS Neutrophils/Leukocyt es Auto (Bld) [Pure # fraction] 4.1 E9/L [...] [#/Area] 0-2 /HPF Normal 0-2/HPF [facility] UA Auto SS Glucose Test strip (U) [Mass/Vol] 3+ *ABN* (03/13/22 6:28 PM) Invalid Interpretation Code Negative [facility] UA Auto SS Hemoglobin Ql (U) Negative (03/13/22 6:28 PM) Normal Negative [facility] UA Auto SS Ketones (U) [Mass/Vol] Negative (03/13/22 6:28 PM) Normal Negative [facility] UA Auto SS [place].plasma/Lithi um.RBC (Bld) [Mass ratio] 0-3 /HPF Normal 0-3/HPF [...] Desc Clean Catch (03/13/22 6:28 PM) Normal [facility] UA Auto SS Urobilinogen Qn (U) 0.2098608 {Appa'U}/dL Normal 0.0 - 1.0 EU/dL [facility] UA [...] 12 mmol/L Normal 6 - 16 mEq/L [facility] Remisol AST [Catalytic activity/Vol] 19 [iU]/d [...] - 11.1 mg/dL [facility] Remisol Chloride [Moles/Vol] 104 mmol/L Normal 101 - 111 mmol/ L [facility] Remisol CO2 [Moles/Vol] 23 mmol/L Normal 21 - 31 mmol/L [facility] Remisol Creatinine [Mass/Vol] 0.9 mg/dL Normal 0.5 - 1.3 mg/dL [facility] Remisol GFR/1.73 sq M.predicted among blacks MDRD (S/P/Bld) [Vol rate/Area] mL/min/1.73 m2 Normal >=59mL/min/1.73 m2 [facility] Chem S GFR/1.73 sq M.predicted among non-blacks MDRD (S/P/Bld) [Vol rate/Area] mL/min/1.73 m2 Normal >=59mL/min/1.73 m2 [facility] Chem S Globulin (S) [Mass/Vol] 3.3 g/dL Normal 1.4 - 4.0 gm/dL [facility] Remisol Glucose [Mass/Vol] 316 mg/dL High 55 - 199 mg/dL [facility] Remisol Potassium [Moles/Vol] 3.5 mmol/L Normal 3.5 - 5.3 mmol/L [facility] Remisol Protein [Mass/Vol] 6.5 g/dL Normal 6.0 - 7.8 gm/dL [facility] [place] Remisol Sodium [Moles/Vol] 135 mmol/L Normal 135 [...] Normal 0.0 - 8.0 % [facility] HemeAutoSS Eosinophils/Leukocyt es Auto (Bld) [Pure # fraction] 0.3 E9/L Normal 0.0 - 0.5 E9/L [facility] HemeAutoSS Lymphocytes/100 WBC (Bld) 21.4 % Normal 14.0 - 50.0 % [facility] HemeAutoSS Lymphocytes/Leukocyt es Auto (Bld) [Pure # fraction] 1.6 E9/L Normal 1.0 - 4.0 E9/L [facility] HemeAutoSS Monocytes/100 WBC (Bld) 11.7 % Normal 4.0 - 14.0 % [facility] HemeAutoSS Monocytes/Leukocytes Auto (Bld) [Pure # fraction] 0.9 E9/L Normal 0.2 - 1.0 E9/L [facility] HemeAutoSS Neutrophils/100 WBC (Bld) 61.4 % Normal 36.0 - 75.0 % [facility] HemeAutoSS Neutrophils/Leukocyt es Auto (Bld) [Pure # fraction] 4.7 E9/L Normal 2.0 - 7.5 E9/L [facility] HemeAutoSS HEMATOLOGYOrdered By: Sheila Carter on 02-08-2022 Erythrocyte distribution width (RBC) [Ratio] 13.5 % Normal 10.9 - 14.2 % [facility] HemeAutoSS Hematocrit (Bld) [Volume fraction] 28.4 % Low 34.0 - 46.0 % [facility] HemeAutoSS Hemoglobin (Bld) [Mass/Vol] 9.9 g/dL Low 12.0 - 16.0 gm/dL [facility] HemeAutoSS MCH (RBC) [Entitic mass] 29.2 pg Normal 27.0 - 34.0 pg [facility] HemeAutoSS MCHC (RBC) [Mass/Vol] 34.7 g/dL Normal 31.4 - 36.0 gm/dL [facility] HemeAutoSS MCV (RBC) [Entitic vol] 84.1 fL Normal 80.0 - 100.0 fL [facility] HemeAutoSS Platelet mean volume (Bld) [Entitic vol] 8.1 fL Normal 6.4 - 10.8 fL [facility] HemeAutoSS Platelets (Bld) [#/Vol] 180.0 E9/L Normal 150.0 - 500.0 E9/L [facility] HemeAutoSS RBC (Bld) [#/Vol] 3.4 E12/L Low [...] [#/Area] 3-4 /HPF Normal 0-2/HPF [facility] UA Auto SS Glucose Test strip (U) [Mass/Vol] 1+ *ABN* (02/08/22 9:05 PM) Invalid Interpretation Code Negative [facility] UA Auto SS Hemoglobin Ql (U) Negative (02/08/22 9:05 PM) Normal Negative [facility] UA Auto SS Ketones (U) [Mass/Vol] Negative (02/08/22 9:05 PM) Normal Negative [facility] UA Auto SS [place].plasma/Lithi um.RBC (Bld) [Mass ratio] 0-3 /HPF Normal 0-3/HPF [...] [facility] UA Auto SS Urobilinogen Qn (U) 0.2211601 {Papa'U}/dL Normal 0.0 - 1.0 EU/dL [facility] UA Auto SS WBC Auto Ql (U) Negative (02/08/22 9:05 PM) Normal Negative [facility] UA Auto SS WBC LM.HPF (Urine sed) [#/Area] 0-5 /HPF Normal 0-5/HPF [facility] UA Auto SS CHEMISTRYOrdered By: SYSTEM SYSTEM on 02-03-2022 Anion gap [Moles/Vol] 8 mmol/L Normal 6 - 16 mEq/L [facility] Remisol Calcium [Mass/Vol] 8.2 mg/dL Low 8.9 - 11.1 mg/dL [facility] Remisol Chloride [Moles/Vol] 111 mmol/L Normal 101 - 111 mmol/ L [facility] Remisol CO2 [Moles/Vol] 22 mmol/L Normal 21 - 31 mmol/L [facility] Remisol Creatinine [Mass/Vol] 1.2 mg/dL Normal 0.5 - 1.3 mg/dL [facility] Remisol GFR/1.73 sq M.predicted among blacks MDRD (S/P/Bld) [Vol rate/Area] 54 mL/min/1.73 m2 Low >=59mL/min/1.73 m2 [facility] Chem S GFR/1.73 sq M.predicted among non-blacks MDRD (S/P/Bld) [Vol rate/Area] 45 mL/min/1.73 m2 Low >=59mL/min/1.73 m2 [facility] Chem S Glucose [Mass/Vol] 165 mg/dL Normal 55 - 199 mg/dL [facility] Remisol Potassium [Moles/Vol] 3.2 mmol/L Low 3.5 - 5.3 mmol/L [facility] Remisol Sodium [Moles/Vol] 138 mmol/L Normal 135 - 145 mmol/L [facility] Remisol Urea nitrogen [Mass/Vol] 11 mg/dL Normal 5 - 21 mg/dL [facility] Remisol Urea nitrogen/Creatinine [Mass ratio] 9 mg/mg Low 10 - 20 [facility] Remisol CHEMISTRYOrdered By: Lab ROP User on 02-03-2022 Glucose [Mass/Vol] 186 mg/dL High 55 - 99 mg/dL [facility] C POC Subsection Comment on above: Result Comment: Fausto rubi RN/ POC Device SN [id number] Invalid Interpretation Code [facility] [place] POC Subsection POC User ID [id number] Invalid Interpretation Code [facility] POC Subsection POC Username LORAINE SELVIN Invalid Interpretation Code [facility] POC Subsection HEMATOLOGYOrdered By: SYSTEM SYSTEM on 02-03-2022 Basophils/100 WBC (Bld) 0.4 % Normal 0.0 - 2.0 % [facility] HemeAutoSS Basophils/Leukocytes Auto (Bld) [Pure # fraction] 0.0 E9/L Normal 0.0 - 0.2 E9/L [facility]eAutoSS Eosinophils/100 WBC (Bld) 7.3 % Normal 0.0 - 8.0 % [facility] HemeAutoSS Eosinophils/Leukocyt es Auto (Bld) [Pure # fraction] 0.4 E9/L Normal 0.0 - 0.5 E9/L [facility] HemeAutoSS Lymphocytes/100 WBC (Bld) 32.4 % Normal 14.0 - 50.0 % [facility] HemeAutoSS Lymphocytes/Leukocyt es Auto (Bld) [Pure # fraction] 1.7 E9/L Normal 1.0 - 4.0 E9/L [facility] HemeAutoSS Monocytes/100 WBC (Bld) 15.6 % High 4.0 - 14.0 % [facility] HemeAutoSS Monocytes/Leukocytes Auto (Bld) [Pure # fraction] 0.8 E9/L Normal 0.2 - 1.0 E9/L [facility] HemeAutoSS Neutrophils/100 WBC (Bld) 44.3 % Normal 36.0 - 75.0 % [facility] HemeAutoSS Neutrophils/Leukocyt es Auto (Bld) [Pure # fraction] 2.3 E9/L [...] Comment: Fausto rubi RN/ POC Device SN [id number] Invalid Interpretation Code [facility] [place] POC Subsection POC User ID [id number] Invalid Interpretation Code [facility] POC Subsection POC Username JERZY BARCENAS Invalid Interpretation Code [facility] POC Subsection Glucose [Mass/Vol] 176 mg/dL High 55 - 99 mg/dL [facility] C POC Subsection Comment on above: Result Comment: Lucille ronak Meter POC Device SN [id number] Invalid Interpretation Code [facility] POC Subsection POC User ID [id number] Invalid Interpretation Code [facility] POC Subsection POC Username LIANA ALLEN Invalid Interpretation Code [facility] [place]OC Subsection CHEMISTRYOrdered By: SYSTEM SYSTEM on 02-02-2022 Anion gap [Moles/Vol] 7 mmol/L Normal 6 - 16 mEq/L [facility] Remisol Calcium [Mass/Vol] 7.8 mg/dL Low 8.9 - 11.1 mg/dL [facility] Remisol Chloride [Moles/Vol] 115 mmol/L High 101 - 111 mmol/ L [facility] Remisol CO2 [Moles/Vol] 22 mmol/L Normal 21 - 31 mmol/L [facility] Remisol Creatinine [Mass/Vol] 1.0 mg/dL Normal 0.5 - 1.3 mg/dL [facility] Remisol GFR/1.73 sq M.predicted among blacks MDRD (S/P/Bld) [Vol rate/Area] mL/min/1.73 m2 Normal >=59mL/min/1.73 m2 [facility] Chem S GFR/1.73 sq M.predicted among non-blacks MDRD (S/P/Bld) [Vol rate/Area] 55 mL/min/1.73 m2 Low >=59mL/min/1.73 m2 [facility] Chem S Glucose [Mass/Vol] 159 [...] (Urine sed) [#/Area] 0-2 /HPF Normal 0-2/HPF [facility] UA Auto SS Glucose Test strip (U) [Mass/Vol] Negative (02/02/22 7:06 AM) Normal Negative [facility] UA Auto SS Hemoglobin Ql (U) Negative (02/02/22 7:06 AM) Normal Negative [facility] UA Auto SS Ketones (U) [Mass/Vol] Negative (02/02/22 7:06 AM) Normal Negative [facility] UA Auto SS [place].plasma/Lithi um.RBC (Bld) [Mass ratio] 0-3 /HPF Normal 0-3/HPF [...] Desc Clean Catch (02/02/22 7:06 AM) Normal [facility] UA Auto SS Urobilinogen Qn (U) 0.1439779 {Papa'U}/dL Normal 0.0 - 1.0 EU/dL [facility] UA Auto SS WBC Auto Ql (U) Trace *ABN* (02/02/22 7:06 AM) Invalid Interpretation Code Negative [facility] UA Auto SS WBC LM.HPF (Urine sed) [#/Area] 0-5 /HPF Normal 0-5/HPF [facility] UA Auto SS CHEMISTRYOrdered By: Lab ROP User on 02-01-2022 Glucose [Mass/Vol] 261 mg/dL High 55 - 99 mg/dL [facility] C POC Subsection Comment on above: Result Comment: Fausto rubi RN/ POC Device SN [id number] Invalid Interpretation Code [facility] [place] Subsection POC User ID [id number] Invalid Interpretation Code [facility] [place] Subsection POC Username [email or web address] Invalid Interpretation Code [facility] [place] Subsection CHEMISTRYOrdered By: SYSTEM SYSTEM on 02-01-2022 Anion gap [Moles/Vol] 10 mmol/L Normal 6 - 16 mEq/L [facility] [place] Remisol Calcium [Mass/Vol] 8.2 mg/dL Low 8.9 - 11.1 mg/dL FT Remisol Chloride [Moles/Vol] 108 mmol/L Normal 101 - 111 mmol/ L FT Remisol CO2 [Moles/Vol] 21 mmol/L Normal 21 - 31 mmol/L [facility] [place] GFR/1.73 sq M.predicted among blacks MDRD (S/P/Bld) [Vol rate/Area] 42 mL/min/1.73 m2 Low >=59mL/min/1.73 m2 [facility] [place] Chem S GFR/1.73 sq M.predicted among non-blacks MDRD (S/P/Bld) [Vol rate/Area] 35 mL/min/1.73 m2 Low >=59mL/min/1.73 m2 [facility] [place] Chem S Glucose [Mass/Vol] 128 mg/dL Normal 55 - 199 mg/dL FT Remisol Magnesium [Mass/Vol] 2.0 mg/dL Normal 1.3 - 2.4 mg/dL FT Remisol Sodium [Moles/Vol] 136 mmol/L [...] Normal 0.0 - 8.0 % [facility] HemeAutoSS Eosinophils/Leukocyt es Auto (Bld) [Pure # fraction] 0.1 E9/L Normal 0.0 - 0.5 E9/L [facility]eAutoSS Lymphocytes/100 WBC (Bld) 10.3 % Low 14.0 - 50.0 % [facility] HemeAutoSS Lymphocytes/Leukocyt es Auto (Bld) [Pure # fraction] 1.1 E9/L Normal 1.0 - 4.0 E9/L [facility]eAutoSS Monocytes/100 WBC (Bld) 11.2 % Normal 4.0 - 14.0 % [facility] HemeAutoSS Monocytes/Leukocytes Auto (Bld) [Pure # fraction] 1.2 E9/L High 0.2 - 1.0 E9/L [facility]eAutoSS Neutrophils/100 WBC (Bld) 77.1 % High 36.0 - 75.0 % [facility] HemeAutoSS Neutrophils/Leukocyt es Auto (Bld) [Pure # fraction] 8.3 E9/L [...] 161.0 E9/L Normal 150.0 - 500.0 E9/L [facility] [...] 18 mmol/L High 6 - 16 mEq/L [facility] Remisol AST [Catalytic activity/Vol] 16 [iU]/d [...] rate/Area] 27 mL/min/1.73 m2 Low >=59mL/min/1.73 m2 [facility] [place] Chem S GFR/1.73 sq M.predicted among non-blacks MDRD (S/P/Bld) [Vol rate/Area] 22 mL/min/1.73 m2 Low >=59mL/min/1.73 m2 [facility] [place] S Globulin (S) [Mass/Vol] [...] g/dL Normal 6.0 - 7.8 gm/dL F [facility] [place] Remisol Sodium [Moles/Vol] 135 mmol/L Normal 135 - 145 mmol/L FT Remisol Troponin I.cardiac [Mass/Vol] 4.30 pg/mL Low 10.10 - 27.10 pg/mL FT Remisol Urea nitrogen [Mass/Vol] 34 mg/dL High 5 - 21 mg/dL FT Remisol Urea nitrogen/Creatinine [Mass ratio] 16 mg/mg Normal 10 - 20 FT Remisol CHEMISTRYOrdered By: Yosvany Carreon on 01-31-2022 Creatinine [Mass/Vol] 2.2 mg/dL High 0.5 - 1.3 mg/dL [facility] [place]isol CHEMISTRYOrdered By: Sejal Carter on 01-31-2022 HbA1c (Bld) [Mass fraction] 9.6 % High <=5.9% [facility] [place] ChemAuto[facility] HEMATOLOGYOrdered By: SYSTEM SYSTEM on 01-31-2022 Basophils/100 WBC (Bld) 0.3 % Normal 0.0 - 2.0 % [facility] HemeAutoSS Basophils/Leukocytes Auto (Bld) [Pure # fraction] 0.0 E9/L Normal 0.0 - 0.2 E9/L [facility] HemeAutoSS Eosinophils/100 WBC (Bld) 2.9 % Normal 0.0 - 8.0 % [facility] HemeAutoSS Eosinophils/Leukocyt es Auto (Bld) [Pure # fraction] 0.3 E9/L Normal 0.0 - 0.5 E9/L [facility] HemeAutoSS Lymphocytes/100 WBC (Bld) 10.9 % Low 14.0 - 50.0 % [facility] HemeAutoSS Lymphocytes/Leukocyt es Auto (Bld) [Pure # fraction] 1.0 E9/L Normal 1.0 - 4.0 E9/L [facility] HemeAutoSS Monocytes/100 WBC (Bld) 8.5 % Normal 4.0 - 14.0 % [facility] HemeAutoSS Monocytes/Leukocytes Auto (Bld) [Pure # fraction] 0.8 E9/L Normal 0.2 - 1.0 E9/L [facility]eAutoSS Neutrophils/100 WBC (Bld) 77.4 % High 36.0 - 75.0 % [facility] HemeAutoSS Neutrophils/Leukocyt es Auto (Bld) [Pure # fraction] 7.2 E9/L Normal 2.0 - 7.5 E9/L [facility] HEMATOLOGYOrdered By: Sheila Carter on 01-31-2022 Erythrocyte distribution width (RBC) [Ratio] 13.5 % Normal 10.9 - 14.2 % [facility] Hematocrit (Bld) [Volume fraction] 35.8 % Normal 34.0 - 46.0 % [facility] Hemoglobin (Bld) [Mass/Vol] 11.7 g/dL Low [...] Result Comment: Fausto CHAUDHARY POC Device SN [id number] Invalid Interpretation Code [facility] POC Subsection POC User ID [id number] Invalid Interpretation Code [facility] POC Subsection POC Username GAGANDEEP HER Invalid Interpretation Code [facility] POC Subsection Glucose [Mass/Vol] 265 mg/dL High 55 - 99 mg/dL [facility] C POC Subsection Comment on above: Result Comment: Fausto CHAUDHARY POC Device SN [id number] Invalid Interpretation Code [facility] POC Subsection POC User ID [id number] Invalid Interpretation Code [facility] POC Subsection POC Username GAGANDEEP HER Invalid Interpretation Code [facility] POC Subsection CHEMISTRYOrdered By: SYSTEM SYSTEM on 01-30-2022 Anion gap [Moles/Vol] 12 mmol/L Normal 6 - 16 mEq/L [facility] Remisol Calcium [Mass/Vol] 8.8 mg/dL Low 8.9 - 11.1 mg/dL [facility] Remisol Chloride [Moles/Vol] 106 mmol/L Normal 101 - 111 mmol/ L [facility] Remisol CO2 [Moles/Vol] 24 mmol/L Normal 21 - 31 mmol/L [facility] Creatinine [Mass/Vol] 1.1 mg/dL Normal 0.5 - 1.3 mg/dL [facility] GFR/1.73 sq M.predicted among blacks MDRD (S/P/Bld) [Vol rate/Area] 60 mL/min/1.73 m2 Normal >=59mL/min/1.73 m2 [facility] Chem S GFR/1.73 sq M.predicted among non-blacks MDRD (S/P/Bld) [Vol rate/Area] 50 mL/min/1.73 m2 Low >=59mL/min/1.73 m2 [facility] Chem S Glucose [Mass/Vol] 255 mg/dL High 55 - 199 mg/dL [facility] Remisol Potassium [Moles/Vol] 3.5 mmol/L Normal 3.5 - 5.3 mmol/L [facility] Sodium [Moles/Vol] 138 mmol/L Normal 135 - 145 mmol/L [facility] Remisol Urea nitrogen [Mass/Vol] 19 mg/dL Normal 5 - 21 mg/dL [facility]isol Urea nitrogen/Creatinine [Mass ratio] 17 mg/mg Normal 10 - 20 [facility]isol CHEMISTRYOrdered By: SYSTEM SYSTEM on 01-29-2022 Anion gap [Moles/Vol] 14 mmol/L Normal 6 - 16 mEq/L [facility] Remisol Calcium [Mass/Vol] 9.1 mg/dL Normal 8.9 - 11.1 mg/dL [facility] Remisol Chloride [Moles/Vol] 103 mmol/L Normal 101 - 111 mmol/ L [facility] Remisol CO2 [Moles/Vol] 24 mmol/L Normal 21 - 31 mmol/L [facility] Remisol Creatinine [Mass/Vol] 1.1 mg/dL Normal 0.5 - 1.3 mg/dL [facility] Remisol GFR/1.73 sq M.predicted among blacks MDRD (S/P/Bld) [Vol rate/Area] 60 mL/min/1.73 m2 Normal >=59mL/min/1.73 m2 [facility] Chem S GFR/1.73 sq M.predicted among non-blacks MDRD (S/P/Bld) [Vol rate/Area] 50 mL/min/1.73 m2 Low >=59mL/min/1.73 m2 [facility] Chem S Glucose [Mass/Vol] 245 mg/dL High 55 - 199 mg/dL [facility] Remisol Potassium [Moles/Vol] 3.5 mmol/L Normal 3.5 - 5.3 mmol/L [facility] Remisol Sodium [Moles/Vol] 137 mmol/L Normal 135 - 145 mmol/L [facility] Remisol Urea nitrogen [Mass/Vol] 18 mg/dL Normal 5 - 21 mg/dL [facility] Remisol Urea nitrogen/Creatinine [Mass ratio] 16 mg/mg Normal - [facility] Remisol Anion gap [Moles/Vol] 13 mmol/L Normal 6 - 16 mEq/L [facility] Remisol Calcium [Mass/Vol] 9.0 mg/dL Normal 8.9 - 11.1 mg/dL [facility] Remisol Chloride [Moles/Vol] 107 mmol/L Normal 101 - 111 mmol/ L [facility] Remisol CO2 [Moles/Vol] 23 mmol/L Normal 21 - 31 mmol/L [facility] Remisol Creatinine [Mass/Vol] 1.2 mg/dL Normal 0.5 - 1.3 mg/dL [facility] Remisol GFR/1.73 sq M.predicted among blacks MDRD (S/P/Bld) [Vol rate/Area] 54 mL/min/1.73 m2 Low >=59mL/min/1.73 m2 [facility] Chem S GFR/1.73 sq M.predicted among non-blacks MDRD (S/P/Bld) [Vol rate/Area] 45 mL/min/1.73 m2 Low >=59mL/min/1.73 m2 [facility] Chem S Glucose [Mass/Vol] 151 mg/dL Normal 55 - 199 mg/dL [facility] Remisol Potassium [Moles/Vol] 3.7 mmol/L Normal 3.5 - 5.3 mmol/L [facility] Remisol Sodium [Moles/Vol] 139 mmol/L Normal 135 - 145 mmol/L [facility] Remisol Urea nitrogen [Mass/Vol] 15 mg/dL Normal 5 - 21 mg/dL [facility] Remisol Urea nitrogen/Creatinine [Mass ratio] 12 mg/mg Normal - [facility] Remisol CHEMISTRYOrdered By: Lab ROP User on 01-29-2022 Glucose [Mass/Vol] 248 mg/dL High 55 - 99 mg/dL [facility] C POC Subsection Comment on above: Result Comment: Fausto rubi RN/ POC Device SN [id number] Invalid Interpretation Code [facility] POC Subsection POC User ID [id number] Invalid Interpretation Code [facility] POC Subsection POC Username ESTEFANY GUZMAN Invalid Interpretation Code [facility] POC Subsection CHEMISTRYOrdered By: SYSTEM [...] pH Randall 7.288 Low 7.320 - 7.430 [facility] Resp Auto SS Sample Site OTHER (01/28/22 1:53 PM) Normal [facility] Resp Auto SS Sample Type Venous Draw (01/28/22 1:53 PM) Normal [facility] Resp Auto SS HEMATOLOGYOrdered By: SYSTEM SYSTEM on 01-28-2022 Basophils/100 WBC (Bld) 0.1 % Normal 0.0 - 2.0 % [facility]eAuto[facility] Basophils/Leukocytes Auto (Bld) [Pure # fraction] 0.0 E9/L Normal 0.0 - 0.2 E9/L [facility]eAuto[facility] Eosinophils/100 WBC (Bld) 0.0 % Normal 0.0 - 8.0 % [facility]eAutoSS Eosinophils/Leukocyt es Auto (Bld) [Pure # fraction] 0.0 E9/L Normal 0.0 - 0.5 E9/L [facility]eAuto[facility] Lymphocytes/100 WBC (Bld) 5.7 % Low 14.0 - 50.0 % [facility]eAutoSS Lymphocytes/Leukocyt es Auto (Bld) [Pure # fraction] 0.8 E9/L Low 1.0 - 4.0 E9/L [facility]eAuto[facility] Monocytes/100 WBC (Bld) 8.6 % Normal 4.0 - 14.0 % [facility]eAutoSS Monocytes/Leukocytes Auto (Bld) [Pure # fraction] 1.2 E9/L High 0.2 - 1.0 E9/L [facility] Neutrophils/100 WBC (Bld) 85.6 % High 36.0 - 75.0 % [facility]eAutoSS Neutrophils/Leukocyt es Auto (Bld) [Pure # fraction] 11.8 E9/L High 2.0 - 7.5 E9/L [facility] HEMATOLOGYOrdered By: Jose Martin Brar on 01-28-2022 Erythrocyte distribution width (RBC) [Ratio] 13.3 % Normal 10.9 - 14.2 % [facility] HemeAutoSS Hematocrit (Bld) [Volume fraction] 34.5 % Normal 34.0 - 46.0 % [facility] HemeAutoSS Hemoglobin (Bld) [Mass/Vol] 10.7 g/dL Low 12.0 - 16.0 gm/dL [facility] HemeAutoSS MCH (RBC) [Entitic mass] 28.6 pg [...] [#/Area] 0-2 /HPF Normal 0-2/HPF [facility] UA Auto SS Glucose Test strip (U) [Mass/Vol] 3+ *ABN* (01/28/22 2:37 PM) Invalid Interpretation Code Negative [facility] UA Auto SS Hemoglobin Ql (U) Negative (01/28/22 2:37 PM) Normal Negative [facility] UA Auto SS Ketones (U) [Mass/Vol] Negative (01/28/22 2:37 PM) Normal Negative [facility] UA Auto SS [place].plasma/Lithi um.RBC (Bld) [Mass ratio] 0-3 /HPF Normal 0-3/HPF [facility] UA Auto SS Nitrite Ql (U) Negative (01/28/22 2:37 PM) Normal Negative [facility] UA Auto SS pH (U) 7.0 *NA* (01/28/22 2:37 PM) Invalid Interpretation Code 5.0 - 9.0 [facility] UA Auto SS Protein (U) [Mass/Vol] Negative (01/28/22 2:37 PM) Normal Negative [facility] UA Auto SS Specific gravity (U) [Rel density] <=1.005 *NA* (01/28/22 2:37 PM) Invalid Interpretation Code 1.005 - 1.030 [facility] UA Auto SS UA Spec Desc Clean Catch (01/28/22 2:37 PM) Normal [facility] UA Auto SS Urobilinogen Qn (U) 0.5727001 {Papa'U}/dL Normal 0.0 - 1.0 EU/dL [facility] UA Auto SS WBC Auto Ql (U) Negative (01/28/22 2:37 PM) Normal Negative [facility] UA Auto SS WBC LM.HPF (Urine sed) [#/Area] 0-5 /HPF Normal 0-5/HPF [facility] UA Auto SS CHEMISTRYOrdered By: Lab ROP User on 01-27-2022 Glucose [Mass/Vol] 187 mg/dL High 55 - 99 mg/dL [facility] C POC Subsection Comment on above: Result Comment: Fausto rubi RN/ POC Device SN [id number] Invalid Interpretation Code [facility] POC Subsection POC User ID [id number] Invalid Interpretation Code [facility] POC Subsection POC Username FERNANDO JACINTOGABBY Invalid Interpretation Code [facility] POC Subsection CHEMISTRYOrdered By: SYSTEM [...] 13 mmol/L Normal 6 - 16 mEq/L [facility] Remisol AST [Catalytic activity/Vol] 16 [iU]/d [...] rate/Area] 60 mL/min/1.73 m2 Normal >=59mL/min/1.73 m2 [facility] Chem S GFR/1.73 sq M.predicted among non-blacks MDRD (S/P/Bld) [Vol rate/Area] 50 mL/min/1.73 m2 Low >=59mL/min/1.73 m2 [facility] Chem S Globulin (S) [Mass/Vol] 4.3 g/dL High 1.4 - 4.0 gm/dL [facility] Remisol Glucose [Mass/Vol] 295 mg/dL High 55 - 199 mg/dL [facility] Lipase [Catalytic activity/Vol] 45 U/L Normal 13 - 58 unit/L [facility]isol Magnesium [Mass/Vol] 2.1 mg/dL Normal 1.3 - 2.4 mg/dL [facility] Potassium [Moles/Vol] 3.6 mmol/L [...] Normal 0.0 - 8.0 % [facility]eAutoSS Eosinophils/Leukocyt es Auto (Bld) [Pure # fraction] 0.4 E9/L Normal 0.0 - 0.5 E9/L [facility]eAuto[facility] Lymphocytes/100 WBC (Bld) 19.0 % Normal 14.0 - 50.0 % [facility]eAutoSS Lymphocytes/Leukocyt es Auto (Bld) [Pure # fraction] 1.7 E9/L Normal 1.0 - 4.0 E9/L [facility]eAutoSS Monocytes/100 WBC (Bld) 8.3 % Normal 4.0 - 14.0 % [facility]eAutoSS Monocytes/Leukocytes Auto (Bld) [Pure # fraction] 0.7 E9/L Normal 0.2 - 1.0 E9/L [facility]eAuto[facility] Neutrophils/100 WBC (Bld) 67.7 % Normal 36.0 - 75.0 % [facility]eAutoSS Neutrophils/Leukocyt es Auto (Bld) [Pure # fraction] 6.1 E9/L [...] [#/Area] 0-2 /HPF Normal 0-2/HPF [facility] UA Auto SS Glucose Test strip (U) [Mass/Vol] 3+ *ABN* (01/27/22 3:30 PM) Invalid Interpretation Code Negative [facility] UA Auto SS Hemoglobin Ql (U) Negative (01/27/22 3:30 PM) Normal Negative [facility] UA Auto SS Ketones (U) [Mass/Vol] Negative (01/27/22 3:30 PM) Normal Negative [facility] UA Auto SS [place].plasma/Lithi um.RBC (Bld) [Mass ratio] 0-3 /HPF Normal 0-3/HPF [...] Desc Clean Catch (01/27/22 3:30 PM) Normal [facility] UA Auto SS Urobilinogen Qn (U) 0.4828116 {Papa'U}/dL Normal 0.0 - 1.0 EU/dL FT [...] Comment: Lucille ronak Meter POC Device SN [id number] Invalid Interpretation Code [facility] POC Subsection POC User ID [id number] Invalid Interpretation Code [facility] POC Subsection POC Username BHARGAV CANO Invalid Interpretation Code [facility] POC Subsection Glucose [Mass/Vol] 126 mg/dL High 55 - 99 mg/dL [facility] C POC Subsection POC Device SN [id number] Invalid Interpretation Code [facility] POC Subsection POC User ID [id number] Invalid Interpretation Code [facility] POC Subsection POC Username AGUSTIN GARSIA Invalid Interpretation Code [facility] POC Subsection CHEMISTRYOrdered By: SYSTEM [...] 14 mmol/L Normal 6 - 16 mEq/L [facility] Remisol AST [Catalytic activity/Vol] 17 [iU]/d Normal 5 - 43 Int._Unit/L [facility] Remisol Bilirubin [Mass/Vol] 0.3 mg/dL Normal 0.0 - 1.1 mg/dL [facility] Remisol Calcium [Mass/Vol] 9.0 mg/dL Normal 8.9 - 11.1 mg/dL [facility] Remisol Chloride [Moles/Vol] 107 mmol/L Normal 101 - 111 mmol/ L [facility] Remisol CO2 [Moles/Vol] 18 mmol/L Low 21 - 31 mmol/L [facility] Remisol Creatinine [Mass/Vol] 1.1 mg/dL Normal 0.5 - 1.3 mg/dL [facility] Remisol GFR/1.73 sq M.predicted among blacks MDRD (S/P/Bld) [Vol rate/Area] 60 mL/min/1.73 m2 Normal >=59mL/min/1.73 m2 [facility] Chem S GFR/1.73 sq M.predicted among non-blacks MDRD (S/P/Bld) [Vol rate/Area] 50 mL/min/1.73 m2 Low >=59mL/min/1.73 m2 [facility] Chem S Globulin (S) [Mass/Vol] 3.5 g/dL Normal 1.4 - 4.0 gm/dL [facility] Remisol Glucose [Mass/Vol] 105 mg/dL Normal 55 - 199 mg/dL [facility] Lipase [Catalytic activity/Vol] 30 U/L Normal 13 - 58 unit/L [facility] Remisol Potassium [Moles/Vol] 3.2 mmol/L Low 3.5 - 5.3 mmol/L [facility] Protein [Mass/Vol] 7.2 g/dL Normal 6.0 - 7.8 gm/dL [facility] [place] Remisol Sodium [Moles/Vol] 136 [...] Normal 0.0 - 8.0 % [facility]eAutoSS Eosinophils/Leukocyt es Auto (Bld) [Pure # fraction] 0.4 E9/L Normal 0.0 - 0.5 E9/L [facility]eAutoSS Lymphocytes/100 WBC (Bld) 30.0 % Normal 14.0 - 50.0 % [facility] HemeAutoSS Lymphocytes/Leukocyt es Auto (Bld) [Pure # fraction] 1.7 E9/L Normal 1.0 - 4.0 E9/L [facility]eAutoSS Monocytes/100 WBC (Bld) 14.6 % High 4.0 - 14.0 % [facility] HemeAutoSS Monocytes/Leukocytes Auto (Bld) [Pure # fraction] 0.8 E9/L Normal 0.2 - 1.0 E9/L [facility]eAutoSS Neutrophils/100 WBC (Bld) 47.6 % Normal 36.0 - 75.0 % [facility] HemeAutoSS Neutrophils/Leukocyt es Auto (Bld) [Pure # fraction] 2.7 E9/L [...] [#/Area] 0-2 /HPF Normal 0-2/HPF [facility] UA Auto SS Glucose Test strip (U) [Mass/Vol] Negative (11/17/21 7:06 PM) Normal Negative [facility] UA Auto SS Hemoglobin Ql (U) Negative (11/17/21 7:06 PM) Normal Negative [facility] UA Auto SS Ketones (U) [Mass/Vol] Negative (11/17/21 7:06 PM) Normal Negative [facility] UA Auto SS [place].plasma/Lithi um.RBC (Bld) [Mass ratio] 0-3 /HPF Normal 0-3/HPF [...] [facility] UA Auto SS Urobilinogen Qn (U) [id number] {Papa'U}/dL Normal 0.0 - 1.0 EU/dL [facility] UA Auto SS WBC Auto Ql (U) Negative (11/17/21 7:06 PM) Normal Negative [facility] UA Auto SS WBC LM.HPF (Urine sed) [#/Area] 0-5 /HPF Normal 0-5/HPF [facility] UA Auto SS Vital Signs Date Time Vital Sign Value Performing Clinician Facility 03-04-2024 11:40-0500 Blood Pressure Location [facility] 03-04-2024 11:40-0500 Diastolic blood pressure 79 mm[Hg] [facility] 03-04-2024 11:40-0500 Heart rate 65 /min [facility] 03-04-2024 11:40-0500 SaO2% (BldA) [Mass fraction] 96 % [facility] 03-04-2024 11:40-0500 Systolic blood pressure 122 mm[Hg] Marcelo Link [facility] 12-30-2023 16:58-0400 Blood Pressure Location [facility] Link [facility] 12-30-2023 16:58-0400 Diastolic blood pressure 64 mm[Hg] Marcelo Link [facility] 12-30-2023 16:58-0400 Heart rate 60 /min Marcelo Link [facility] 12-30-2023 16:58-0400 SaO2% (BldA) [Mass fraction] 99 % Marcelo Link [facility] 12-30-2023 16:58-0400 Systolic blood pressure 106 mm[Hg] Marcelo Link [facility] 11-28-2023 10:48-0400 Blood Pressure Location Marcelo Link [facility] 11-28-2023 10:48-0400 Diastolic blood pressure 64 mm[Hg] Marcelo Link [facility] 11-28-2023 10:48-0400 Heart rate 66 /min Marcelo Link [facility] 11-28-2023 10:48-0400 SaO2% (BldA) [Mass fraction] 95 % Marcelo Link [facility] 11-28-2023 10:48-0400 Systolic blood pressure 112 mm[Hg] Marcelo Link [facility] 11-06-2023 14:37-0400 Blood Pressure Location Marcelo Link [facility] 11-06-2023 14:37-0400 Diastolic blood pressure 70 mm[Hg] Marcelo Link [facility] 11-06-2023 14:37-0400 Heart rate 64 /min Marcelo Link [facility] 11-06-2023 14:37-0400 SaO2% (BldA) [Mass fraction] 99 % Marcelo Link [facility] 11-06-2023 14:37-0400 Systolic blood pressure 106 mm[Hg] Marcelo Link [facility] 09-18-2023 14:35-0400 Blood Pressure Location Marcelo Link [facility] 09-18-2023 14:35-0400 Diastolic blood pressure 76 mm[Hg] Marcelo Link [facility] 09-18-2023 14:35-0400 Heart rate 64 /min Marcelo Link [facility] 09-18-2023 14:35-0400 SaO2% (BldA) [Mass fraction] 98 % Marcelo Link [facility] 09-18-2023 14:35-0400 Systolic blood pressure 124 mm[Hg] Marcelo Link [facility] 08-07-2023 11:41-0400 Blood Pressure Location Marcelo Link [facility] 08-07-2023 11:41-0400 Diastolic blood pressure 62 mm[Hg] Marcelo Link [facility] 08-07-2023 11:41-0400 Heart rate 69 /min Marcelo Link [facility] 08-07-2023 11:41-0400 SaO2% (BldA) [Mass fraction] 97 % Marcelo Link [facility] 08-07-2023 11:41-0400 Systolic blood pressure 118 mm[Hg] Marcelo Link [facility] 07-01-2023 14:04-0400 Blood Pressure Location Marcelo Link [facility] 07-01-2023 14:04-0400 Diastolic blood pressure 78 mm[Hg] Marcelo Link [facility] 07-01-2023 14:04-0400 Heart rate 78 /min Marcelo Link [facility] 07-01-2023 14:04-0400 SaO2% (BldA) [Mass fraction] 97 % Marceol Link [facility] 07-01-2023 14:04-0400 Systolic blood pressure 136 mm[Hg] Marcelo Link [facility] 03-03-2023 13:45-0500 Body height 162.56 cm Ashish Chester Other [facility] Other 03-03-2023 13:45-0500 Body temperature 97.5 [degF] Ashish Chester Other [facility] Other 03-03-2023 13:45-0500 Diastolic blood pressure 55 mm[Hg] Ashish Chester Other [facility] Other 03-03-2023 13:45-0500 Systolic blood pressure 112 mm[Hg] Ashish Chester Other [facility] Other 02-13-2023 09:43-0500 Diastolic blood pressure 58 mm[Hg] Joaquim [facility] 02-13-2023 09:43-0500 Heart rate 60 /min Joaquim [facility] 02-13-2023 09:43-0500 Respiratory rate 16 /min Joaquim [facility] 02-13-2023 09:43-0500 SaO2% (BldA) [Mass fraction] 99 % Joaquim Rice [facility] 02-13-2023 09:43-0500 Systolic blood pressure 124 mm[Hg] Joaquim [facility] 02-13-2023 08:39-0500 Heart rate 57 /min Joaquim Sproom [facility] 02-13-2023 08:39-0500 SaO2% (BldA) [Mass fraction] 98 % Joaquim Sproom [facility] 02-13-2023 08:37-0500 Respiratory rate 18 /min Joaquim Rice [facility] 02-13-2023 08:37-0500 Diastolic blood pressure 73 mm[Hg] Joaquim Rice [facility] 02-13-2023 08:37-0500 Mean blood pressure 94 mm[Hg] Joaquim Rice [facility] 02-13-2023 08:37-0500 Systolic blood pressure 136 mm[Hg] Joaquim Rice [facility] 02-13-2023 08:30-0500 Blood Pressure Location Joaquim Rice [facility] 02-13-2023 08:30-0500 Body temperature 98.06 [degF] Joaquim [facility] 02-13-2023 08:30-0500 Diastolic blood pressure 53 mm[Hg] Joaquim [facility] 02-13-2023 08:30-0500 Heart rate 61 /min Joaquimraquel [facility] 02-13-2023 08:30-0500 Mean blood pressure 78 mm[Hg] Joaquim [facility] 02-13-2023 08:30-0500 Respiratory rate 11 /min Joaquim Rice [facility] 02-13-2023 08:30-0500 SaO2% (BldA) [Mass fraction] 97 % Joaquim Rice [facility] 02-13-2023 08:30-0500 Systolic blood pressure 129 mm[Hg] Joaquim [facility] 02-13-2023 08:20-0500 Blood Pressure Location Joaquim Rice [facility] 02-13-2023 08:20-0500 Mean blood pressure 76 mm[Hg] Joaquim [facility] 02-13-2023 08:20-0500 Respiratory rate 9 /min Joaquim [facility] 02-13-2023 08:15-0500 Blood Pressure Location Joaquim Rice [facility] 02-13-2023 08:15-0500 Mean blood pressure 76 mm[Hg] Joaquim [facility] 02-13-2023 08:01-0500 Body temperature 97.16 [degF] Joaquim [facility] 02-13-2023 07:55-0500 Respiratory rate 12 /min Joaquim [facility] 02-13-2023 06:10-0500 Mean blood pressure 85 mm[Hg] Joaquim Rice [facility] 02-13-2023 06:09-0500 BP/Pulse Patient Position Joaquim Rice [facility] 02-13-2023 06:09-0500 Mean blood pressure 87 mm[Hg] Joaquim [facility] 02-13-2023 06:09-0500 Heart rate 60 /min Joaquim Rice [facility] 02-13-2023 06:08-0500 Body temperature 97.7 [degF] Joaquim [facility] 02-03-2023 14:15-0500 Body height 162.56 cm Ashish Chester Other [facility] Other 02-03-2023 14:15-0500 Body temperature 97.4 [degF] Ashish Chester Other [facility] Other 02-03-2023 14:15-0500 Diastolic blood pressure 58 mm[Hg] Ashish Chester Other [facility] Other 02-03-2023 14:15-0500 Systolic blood pressure 103 mm[Hg] Ashish Chester Other [facility] Other 12-24-2022 18:02-0400 Hourly Rounding Joaquim Rice [facility] 12-24-2022 18:02-0400 Promise to Return Joaquim Rice [facility] 12-24-2022 18:00-0400 Blood Pressure Location Joaquim Rice [facility] 12-24-2022 18:00-0400 Body temperature 98.06 [degF] Joaquim [facility] 12-24-2022 18:00-0400 Diastolic blood pressure 69 mm[Hg] Joaquim Rice [facility] 12-24-2022 18:00-0400 Heart rate 95 /min [facility] 12-24-2022 18:00-0400 Mean blood pressure 82 mm[Hg] [facility] 12-24-2022 18:00-0400 Respiratory rate 18 /min [facility] 12-24-2022 18:00-0400 SaO2% (BldA) [Mass fraction] 97 % [facility] 12-24-2022 18:00-0400 Systolic blood pressure 108 mm[Hg] [facility] 12-24-2022 17:41-0400 Hourly Rounding [facility] 12-24-2022 17:41-0400 Promise to Return [facility] 12-24-2022 16:00-0400 Hourly Rounding [facility] 12-24-2022 16:00-0400 Promise to Return [facility] 12-24-2022 15:43-0400 Heart rate 67 /min [facility] 12-24-2022 15:43-0400 SaO2% (BldA) [Mass fraction] 96 % [facility] 12-24-2022 15:42-0400 Body temperature 97.7 [degF] [facility] 12-24-2022 15:42-0400 Diastolic blood pressure 67 mm[Hg] [facility] 12-24-2022 15:42-0400 Mean blood pressure 87 mm[Hg] [facility] 12-24-2022 15:42-0400 Systolic blood pressure 127 mm[Hg] [facility] 12-24-2022 13:06-0400 gluc 194 mg/dL [facility] 12-24-2022 11:37-0400 Heart rate 67 /min [facility] 12-24-2022 11:37-0400 SaO2% (BldA) [Mass fraction] 95 % Joaquim [facility] 12-24-2022 11:37-0400 Diastolic blood pressure 49 mm[Hg] Joaquim [facility] 12-24-2022 11:37-0400 Mean blood pressure 67 mm[Hg] Joaquim [facility] 12-24-2022 11:37-0400 Systolic blood pressure 103 mm[Hg] Joaquim [facility] 12-24-2022 11:37-0400 Body temperature 97.7 [degF] Joaquim [facility] 12-24-2022 07:39-0400 Mean blood pressure 76 mm[Hg] Joaquim [facility] 12-24-2022 07:37-0400 Body temperature 97.7 [degF] Joaquim [facility] 12-24-2022 02:43-0400 Respiratory rate 16 /min Joaquim [facility] 12-24-2022 00:01-0400 Body temperature 99.68 [degF] Joaquim [facility] 12-24-2022 00:01-0400 Respiratory rate 16 /min Joaquimraquel Rice [facility] 12-23-2022 12:00-0400 Blood Pressure Location Joaquim Rice [facility] 12-23-2022 12:00-0400 Body temperature 97.34 [degF] Joaquim Sproom [facility] 12-23-2022 12:00-0400 Heart rate 62 /min Joaquim Sproom [facility] 12-22-2022 23:45-0400 gluc 123 mg/dL Joaquim Sproom [facility] 12-22-2022 20:10-0400 Blood Pressure Location Joaquim Rice [facility] 12-22-2022 20:10-0400 Mean blood pressure 88 mm[Hg] Joaquim Sproom [facility] 12-22-2022 12:37-0400 gluc 126 mg/dL Joaquim Sproom [facility] 12-21-2022 20:00-0400 Mean blood pressure 67 mm[Hg] Joaquim Sproom [facility] 12-20-2022 19:15-0400 Respiratory rate 16 /min Joaquim Sproom [facility] 12-20-2022 19:00-0400 Respiratory rate 18 /min Joaquim Sproom [facility] 12-20-2022 18:45-0400 Respiratory rate 11 /min Joaquim Sproom [facility] 12-20-2022 16:21-0400 Heart rate 75 /min Joaquim Sproom [facility] 12-19-2022 17:25-0400 Heart rate 66 /min Joaquim Sproom [facility] 12-19-2022 16:52-0400 Diastolic blood pressure 46 mm[Hg] Joaquim [facility] 12-19-2022 16:52-0400 Systolic blood pressure 105 mm[Hg] Joaquim Rice [facility] 11-29-2022 12:19-0400 Hourly Rounding Reymundoelver ARGUETASLIN [facility] 11-29-2022 12:19-0400 Promise to Return Reymundo JULIAN [facility] 11-29-2022 11:43-0400 Hourly Rounding Reymundo JULIAN [facility] 11-29-2022 11:43-0400 Promise to Return Reymundo JULIAN [facility] 11-29-2022 11:25-0400 Heart rate 79 /min Reymundo JULIAN [facility] 11-29-2022 11:25-0400 SaO2% (BldA) [Mass fraction] 92 % Reymundo JULIAN [facility] 11-29-2022 11:22-0400 Diastolic blood pressure 73 mm[Hg] Reymundo JULIAN [facility] 11-29-2022 11:22-0400 Mean blood pressure 97 mm[Hg] Reymundo JULIAN [facility] 11-29-2022 11:22-0400 Systolic blood pressure 143 mm[Hg] Reymundo JULIAN [facility] 11-29-2022 11:22-0400 Body temperature 98.06 [degF] Reymundo JULIAN [facility] 11-29-2022 10:33-0400 Hourly Rounding Reymundo JULIAN [facility] 11-29-2022 10:33-0400 Promise to Return Reymundo JULIAN [facility] 11-29-2022 09:40-0400 Diastolic blood pressure 75 mm[Hg] Reymundo JULIAN [facility] 11-29-2022 09:40-0400 Systolic blood pressure 160 mm[Hg] Reymundo JULIAN [facility] 11-29-2022 08:17-0400 Heart rate 83 /min Reymundo JULIAN [facility] 11-29-2022 08:17-0400 SaO2% (BldA) [Mass fraction] 93 % Reymundo JULIAN [facility] 11-29-2022 08:17-0400 Diastolic blood pressure 75 mm[Hg] Reymundo JULIAN [facility] 11-29-2022 08:17-0400 Mean blood pressure 104 mm[Hg] Reymundo JULIAN [facility] 11-29-2022 08:17-0400 Systolic blood pressure 160 mm[Hg] Reymundo JULIAN [facility] 11-29-2022 08:17-0400 Body temperature 97.88 [degF] Reymundo JULIAN [facility] 11-28-2022 23:45-0400 Blood Pressure Location Reymundo JULIAN [facility] 11-28-2022 23:45-0400 Body temperature 97.7 [degF] Reymundo JULIAN [facility] 11-28-2022 23:45-0400 Heart rate 68 /min Reymundo JULIAN [facility] 11-28-2022 23:45-0400 SaO2% (BldA) [Mass fraction] 95 % Reymundoelver ARGUETASLIN [facility] 11-28-2022 15:54-0400 Mean blood pressure 93 mm[Hg] Reymundo JULIAN [facility] 11-28-2022 15:54-0400 Body temperature 100.22 [degF] Reymundo JULIAN [facility] 11-28-2022 08:40-0400 Blood Pressure Location Reymundoelver ARGUETASLIN [facility] 11-28-2022 08:40-0400 Body temperature 97.88 [degF] Reymundoelver ARGUETASLIN [facility] 11-28-2022 08:40-0400 Mean blood pressure 86 mm[Hg] Reymundoelver ARGUETASLIN [facility] 11-28-2022 08:40-0400 Respiratory rate 16 /min Reymundo JULIAN [facility] 11-28-2022 00:15-0400 Blood Pressure Location Reymundoelver ARGUETASLIN [facility] 11-28-2022 00:15-0400 Respiratory rate 16 /min Reymundoelver ARGUETASLIN [facility] 11-27-2022 16:43-0400 Mean blood pressure 90 mm[Hg] Reymundo JULIAN [facility] 11-27-2022 11:40-0400 Mean blood pressure 79 mm[Hg] Reymundo JULIAN [facility] 11-27-2022 01:48-0400 Heart rate 18 /min Reymundo JULIAN [facility] 11-26-2022 16:27-0400 Heart rate 78 /min Reymundo JULIAN [facility] 11-26-2022 16:27-0400 Respiratory rate 18 /min Reymundo JULIAN [facility] 11-26-2022 11:43-0400 Heart rate 80 /min Reymundo JULIAN [facility] 11-25-2022 17:25-0400 Respiratory rate 13 /min Reymundo JULIAN [facility] 11-25-2022 17:00-0400 Respiratory rate 11 /min Reymundo JULIAN [facility] 11-25-2022 05:43-0400 gluc 98 mg/dL Reymundo JULIAN [facility] 11-24-2022 19:24-0400 gluc 115 mg/dL Reymundo JULIAN [facility] 11-24-2022 19:00-0400 Heart rate 70 /min Reymundo JULIAN [facility] 11-24-2022 12:25-0400 gluc 149 mg/dL Reymundo JULIAN [facility] 10-02-2022 15:23-0400 Body temperature 97.88 [degF] Raul Arnold [facility] 10-02-2022 15:23-0400 Diastolic blood pressure 80 mm[Hg] Raul Arnold [facility] 10-02-2022 15:23-0400 Heart rate 79 /min Raul Arnold [facility] 10-02-2022 15:23-0400 Respiratory rate 16 /min Raul Arnold [facility] 10-02-2022 15:23-0400 SaO2% (BldA) [Mass fraction] 100 % Raul Arnold [facility] 10-02-2022 15:23-0400 Systolic blood pressure 133 mm[Hg] Raul Arnold [facility] 09-04-2022 21:30-0400 Diastolic blood pressure 72 mm[Hg] Hari Michelle [facility] 09-04-2022 21:30-0400 Heart rate 60 /min Hari Michelle [facility] 09-04-2022 21:30-0400 Mean blood pressure 100 mm[Hg] Hari Michelle [facility] 09-04-2022 21:30-0400 Respiratory rate 15 /min Hari Michelle [facility] 09-04-2022 21:30-0400 SaO2% (BldA) [Mass fraction] 97 % Hari Michelle [facility] 09-04-2022 21:30-0400 Systolic blood pressure 155 mm[Hg] Hari Michelle [facility] 09-04-2022 20:40-0400 Body temperature 97.52 [degF] Hari Michelle [facility] 09-04-2022 20:40-0400 Diastolic blood pressure 80 mm[Hg] Hari Michelle [facility] 09-04-2022 20:40-0400 Heart rate 67 /min Hari Michelle [facility] 09-04-2022 20:40-0400 Respiratory rate 17 /min Hari Michelle [facility] 09-04-2022 20:40-0400 SaO2% (BldA) [Mass fraction] 95 % Hari Michelle [facility] 09-04-2022 20:40-0400 Systolic blood pressure 176 mm[Hg] Hari Michelle [facility] 09-04-2022 20:25-0400 Body temperature 97.52 [degF] Hari Michelle [facility] 09-04-2022 20:25-0400 Diastolic blood pressure 75 mm[Hg] Marcelo Link [facility] 09-04-2022 20:25-0400 Heart rate 62 /min Hari Michelle [facility] 09-04-2022 20:25-0400 Respiratory rate 18 /min Hari Michelle [facility] 09-04-2022 20:25-0400 SaO2% (BldA) [Mass fraction] 99 % Hari Michelle [facility] 09-04-2022 20:25-0400 Systolic blood pressure 188 mm[Hg] Hari Michelle [facility] 09-04-2022 19:04-0400 Body temperature 97.88 [degF] Marcelo Link [facility] 09-04-2022 19:04-0400 Diastolic blood pressure 58 mm[Hg] Marcelo Link [facility] 09-04-2022 19:04-0400 Heart rate 63 /min Marcelo Link [facility] 09-04-2022 19:04-0400 Respiratory rate 15 /min Marcelo Link [facility] 09-04-2022 19:04-0400 SaO2% (BldA) [Mass fraction] 98 % Marcelo Link [facility] 09-04-2022 19:04-0400 Systolic blood pressure 139 mm[Hg] Marcelo Link [facility] 09-04-2022 18:32-0400 Body temperature 98.06 [degF] Marcelo Link [facility] 09-04-2022 18:32-0400 Diastolic blood pressure 64 mm[Hg] Marcelo Link [facility] 09-04-2022 18:32-0400 Heart rate 62 /min Marcelo Link [facility] 09-04-2022 18:32-0400 Mean blood pressure 92 mm[Hg] Marcelo Link [facility] 09-04-2022 18:32-0400 Respiratory rate 16 /min Marcelo Link [facility] 09-04-2022 18:32-0400 SaO2% (BldA) [Mass fraction] 97 % Marcelo Link [facility] 09-04-2022 18:32-0400 Systolic blood pressure 149 mm[Hg] Marcelo Link [facility] 09-04-2022 17:15-0400 Body temperature 97.7 [degF] Marcelo Link [facility] 09-04-2022 17:00-0400 Heart rate 64 /min Marcelo Link [facility] 09-04-2022 17:00-0400 Mean blood pressure 96 mm[Hg] Marcelo Link [facility] 09-04-2022 17:00-0400 Systolic blood pressure 137 mm[Hg] Marcelo Link [facility] 09-04-2022 15:10-0400 gluc 241 mg/dL Marcelo Link [facility] 09-04-2022 15:10-0400 gluc Marcelo Link [facility] 09-04-2022 15:00-0400 Hourly Rounding Marcelo Link [facility] 09-04-2022 15:00-0400 Promise to Return Marcelo Link [facility] 08-09-2022 14:34-0400 Body temperature 97.7 [degF] Raul Clayton [facility] 08-09-2022 14:29-0400 Diastolic blood pressure 64 mm[Hg] Raul Clayton [facility] 08-09-2022 14:29-0400 Heart rate 60 /min Raul Clayton [facility] 08-09-2022 14:29-0400 Mean blood pressure 88 mm[Hg] Raul Clayton [facility] 08-09-2022 14:29-0400 Respiratory rate 14 /min Raul Clayton [facility] 08-09-2022 14:29-0400 SaO2% (BldA) [Mass fraction] 95 % Raul Clayton [facility] 08-09-2022 14:29-0400 Systolic blood pressure 136 mm[Hg] Raul Clayton [facility] 08-09-2022 13:45-0400 Diastolic blood pressure 59 mm[Hg] Raul Clayton [facility] 08-09-2022 13:45-0400 Heart rate 62 /min Raul Clayton [facility] 08-09-2022 13:45-0400 Mean blood pressure 83 mm[Hg] Raul Clayton [facility] 08-09-2022 13:45-0400 Respiratory rate 10 /min Raul Clayton [facility] 08-09-2022 13:45-0400 SaO2% (BldA) [Mass fraction] 96 % Raul Clayton [facility] 08-09-2022 13:45-0400 Systolic blood pressure 130 mm[Hg] Raul Clayton [facility] 08-09-2022 13:32-0400 Body temperature 97.52 [degF] Raul Clayton [facility] 08-09-2022 13:32-0400 Diastolic blood pressure 57 mm[Hg] Raul Arnold [facility] 08-09-2022 13:32-0400 Heart rate 66 /min Raul Clayton [facility] 08-09-2022 13:32-0400 Respiratory rate 18 /min Raul Clayton [facility] 08-09-2022 13:32-0400 SaO2% (BldA) [Mass fraction] 95 % Raul Arnold [facility] 08-09-2022 13:32-0400 Systolic blood pressure 130 mm[Hg] Raul Clayton [facility] 08-09-2022 12:19-0400 gluc 212 mg/dL Raul Clayton [facility] 08-09-2022 12:19-0400 gluc Raul Arnold [facility] 08-09-2022 12:17-0400 Body temperature 97.88 [degF] Raul Arnold [facility] 05-12-2023 12:17-0400 Heart rate 74 /min Raul Clayton [facility] 08-09-2022 12:17-0400 Respiratory rate 16 /min Raul Clayton [facility] 07-18-2022 22:45-0400 Body temperature 98.06 [degF] Kaylinn Dokken [facility] 07-18-2022 22:45-0400 Diastolic blood pressure 56 mm[Hg] Kaylinn Dokken [facility] 07-18-2022 22:45-0400 Heart rate 80 /min Kaylinn Dokken [facility] 07-18-2022 22:45-0400 Respiratory rate 18 /min Kaylinn Dokken [facility] 07-18-2022 22:45-0400 SaO2% (BldA) [Mass fraction] 97 % Kaylinn Dokken [facility] 07-18-2022 22:45-0400 Systolic blood pressure 130 mm[Hg] Kaylinn Dokken [facility] 07-18-2022 22:30-0400 Body temperature 98.06 [degF] Kaylinn Dokken [facility] 07-18-2022 22:30-0400 Diastolic blood pressure 58 mm[Hg] Kaylinn Dokken [facility] 07-18-2022 22:30-0400 Heart rate 85 /min Kaylinn Dokken [facility] 07-18-2022 22:30-0400 Respiratory rate 16 /min Kaylinn Dokken [facility] 07-18-2022 22:30-0400 SaO2% (BldA) [Mass fraction] 95 % Ty Duvallkken [facility] 07-18-2022 22:30-0400 Systolic blood pressure 101 mm[Hg] Yulyn Dokken [facility] 07-18-2022 16:15-0400 Diastolic blood pressure 84 mm[Hg] [facility] 07-18-2022 16:15-0400 Heart rate 90 /min [facility] 07-18-2022 16:15-0400 Respiratory rate 16 /min [facility] 07-18-2022 16:15-0400 SaO2% (BldA) [Mass fraction] 98 % [facility] 07-18-2022 16:15-0400 Systolic blood pressure 135 mm[Hg] [facility] 04-10-2022 11:05-0500 Diastolic blood pressure 83 mm[Hg] Callahan SALAM [facility] 04-10-2022 11:05-0500 Mean blood pressure 106 mm[Hg] Callahan SALAM [facility] 04-10-2022 11:05-0500 Systolic blood pressure 151 mm[Hg] Callahan SALAM [facility] 04-10-2022 11:02-0500 Blood Pressure Location Callahan SALAM [facility] 04-10-2022 11:02-0500 Diastolic blood pressure 86 mm[Hg] Callahan SALAM [facility] 04-10-2022 11:02-0500 Heart rate 70 /min Callahan SALAM [facility] 04-10-2022 11:02-0500 Respiratory rate 16 /min Callahan SALAM [facility] 04-10-2022 11:02-0500 SaO2% (BldA) [Mass fraction] 98 % [place] DIAZ [facility] 04-10-2022 11:02-0500 Systolic blood pressure 142 mm[Hg] [place] NICOLASAM [facility] 04-03-2022 18:00-0500 Diastolic blood pressure 54 mm[Hg] Raul Arnold [facility] 04-03-2022 18:00-0500 Heart rate 66 /min Raul Clayton [facility] 04-03-2022 18:00-0500 Mean blood pressure 78 mm[Hg] Raul Clayton [facility] 04-03-2022 18:00-0500 Respiratory rate 11 /min Raul Clayton [facility] 04-03-2022 18:00-0500 SaO2% (BldA) [Mass fraction] 92 % Raul Clayton [facility] 04-03-2022 18:00-0500 Systolic blood pressure 126 mm[Hg] Raul Clayton [facility] 04-03-2022 16:51-0500 Body temperature 98.24 [degF] Raul Clayton [facility] 04-03-2022 16:51-0500 Diastolic blood pressure 72 mm[Hg] Raul Clayton [facility] 04-03-2022 16:51-0500 Heart rate 72 /min Raul Clayton [facility] 04-03-2022 16:51-0500 Respiratory rate 16 /min Raul Clayton [facility] 04-03-2022 16:51-0500 SaO2% (BldA) [Mass fraction] 99 % Raul Arnold [facility] 04-03-2022 16:51-0500 Systolic blood pressure 120 mm[Hg] Raul Arnold [facility] 04-03-2022 16:36-0500 Body temperature 98.24 [degF] Raul Arnold [facility] 04-03-2022 16:36-0500 Diastolic blood pressure 52 mm[Hg] Raul Arnold [facility] 04-03-2022 16:36-0500 Heart rate 71 /min Raul Arnold [facility] 04-03-2022 16:36-0500 Respiratory rate 16 /min Raul Arnold [facility] 04-03-2022 16:36-0500 SaO2% (BldA) [Mass fraction] 99 % Raul Arnold [facility] 04-03-2022 16:36-0500 Systolic blood pressure 135 mm[Hg] Raul Arnold [facility] 04-02-2022 10:15-0500 Diastolic blood pressure 69 mm[Hg] Brady Yves [facility] 04-02-2022 10:15-0500 Heart rate 66 /min Brady Marinelli [facility] 04-02-2022 10:15-0500 Respiratory rate 20 /min Brady Marinelli [facility] 04-02-2022 10:15-0500 SaO2% (BldA) [Mass fraction] 97 % Brady Marinelli [facility] 04-02-2022 10:15-0500 Systolic blood pressure 150 mm[Hg] Brady Marinelli [facility] 04-02-2022 09:44-0500 Body temperature 97.52 [degF] Brady Marinelli [facility] 04-02-2022 09:44-0500 Diastolic blood pressure 81 mm[Hg] Brady Marinelli [facility] 04-02-2022 09:44-0500 Heart rate 64 /min Brady Marinelli [facility] 04-02-2022 09:44-0500 Respiratory rate 20 /min Brady Marinelli [facility] 04-02-2022 09:44-0500 SaO2% (BldA) [Mass fraction] 95 % Brady Marinelli [facility] 04-02-2022 09:44-0500 Systolic blood pressure 138 mm[Hg] Brady Marinelli [facility] 03-13-2022 19:11-0500 Diastolic blood pressure 45 mm[Hg] Raul Arnold [facility] 03-13-2022 19:11-0500 Heart rate 65 /min Raul Arnold [facility] 03-13-2022 19:11-0500 Mean blood pressure 74 mm[Hg] Raul Clayton [facility] 03-13-2022 19:11-0500 Respiratory rate 18 /min Raul Clayton [facility] 03-13-2022 19:11-0500 SaO2% (BldA) [Mass fraction] 99 % Raul Clayton [facility] 03-13-2022 19:11-0500 Systolic blood pressure 133 mm[Hg] Raul Clayton [facility] 03-13-2022 18:00-0500 Diastolic blood pressure 56 mm[Hg] Raul Arnold [facility] 03-13-2022 18:00-0500 Heart rate 66 /min Raul Clayton [facility] 03-13-2022 18:00-0500 SaO2% (BldA) [Mass fraction] 91 % Raul Clayton [facility] 03-13-2022 18:00-0500 Systolic blood pressure 171 mm[Hg] Raul Clayton [facility] 03-13-2022 16:38-0500 Body temperature 97.52 [degF] Raul Arnold [facility] 03-13-2022 16:38-0500 Diastolic blood pressure 61 mm[Hg] Raul Arnold [facility] 03-13-2022 16:38-0500 Heart rate 67 /min Raul Clayton [facility] 03-13-2022 16:38-0500 Mean blood pressure 94 mm[Hg] Raul Arnold [facility] 03-13-2022 16:38-0500 Respiratory rate 18 /min Raul Arnold [facility] 03-13-2022 16:38-0500 SaO2% (BldA) [Mass fraction] 95 % Raul Arnold [facility] 03-13-2022 16:38-0500 Systolic blood pressure 160 mm[Hg] Raul Clayton [facility] 02-08-2022 22:25-0500 Diastolic blood pressure 77 mm[Hg] Ty Manrique [facility] 02-08-2022 22:25-0500 Heart rate 79 /min Kaylinn Dokken [facility] 02-08-2022 22:25-0500 Respiratory rate 18 /min Orquideaylinn Dokken [facility] 02-08-2022 22:25-0500 SaO2% (BldA) [Mass fraction] 96 % Jairinn Dokken [facility] 02-08-2022 22:25-0500 Systolic blood pressure 185 mm[Hg] Orquideaylinn Dokken [facility] 02-08-2022 21:51-0500 Diastolic blood pressure 79 mm[Hg] Orquideaylinn Dokken [facility] 02-08-2022 21:51-0500 Heart rate 78 /min Yulyn Dokken [facility] 02-08-2022 21:51-0500 Hourly Rounding Yulyn Husseinen [facility] 02-08-2022 21:51-0500 Nursing Progress Note Reason Other: Pt mediciated per orders. Call light in reach. Denies any needs at this time. Yulyn Dokken [facility] 02-08-2022 21:51-0500 Respiratory rate 18 /min Jairinn Dokken [facility] 02-08-2022 21:51-0500 SaO2% (BldA) [Mass fraction] 96 % Jairinn Dokken [facility] 02-08-2022 21:51-0500 Systolic blood pressure 176 mm[Hg] Kaylinn Dokken [facility] 02-08-2022 21:15-0500 Diastolic blood pressure 66 mm[Hg] Kaylinn Dokken [facility] 02-08-2022 21:15-0500 Heart rate 74 /min Ty Manrique [facility] 02-08-2022 21:15-0500 Hourly Rounding Ty Manrique [facility] 02-08-2022 21:15-0500 Nursing Progress Note Reason Other: UA obtained and sent to lab. Ty Manrique [facility] 02-08-2022 21:15-0500 Respiratory rate 18 /min Ty Manrique [facility] 02-08-2022 21:15-0500 SaO2% (BldA) [Mass fraction] 96 % Ty Manrique [facility] 02-08-2022 21:15-0500 Systolic blood pressure 154 mm[Hg] Ty Manrique [facility] 02-08-2022 20:30-0500 Body temperature 98.24 [degF] Ty Manrique [facility] 02-03-2022 05:00-0500 Body temperature 98.24 [degF] Vadim Naseem [facility] 02-03-2022 05:00-0500 Diastolic blood pressure 66 mm[Hg] Vadim Naseem [facility] 02-03-2022 05:00-0500 Heart rate 63 /min Vadim Naseem [facility] 02-03-2022 05:00-0500 Mean blood pressure 95 mm[Hg] Vadim Naseem [facility] 02-03-2022 05:00-0500 Respiratory rate 13 /min Vadim Naseem [facility] 02-03-2022 05:00-0500 SaO2% (BldA) [Mass fraction] 90 % Vadim Gusman [facility] 02-03-2022 05:00-0500 Systolic blood pressure 153 mm[Hg] Vadim Gusman [facility] 02-03-2022 04:00-0500 Body temperature 98.6 [degF] Vadim Gusman [facility] 02-03-2022 04:00-0500 Diastolic blood pressure 69 mm[Hg] Vadim Gusman [facility] 02-03-2022 04:00-0500 Mean blood pressure 99 mm[Hg] Vadim Gusman [facility] 02-03-2022 04:00-0500 Respiratory rate 14 /min Vadim Gusman [facility] 02-03-2022 04:00-0500 SaO2% (BldA) [Mass fraction] 92 % Vadim Gusman [facility] 02-03-2022 04:00-0500 Systolic blood pressure 159 mm[Hg] Vadim Gusman [facility] 02-03-2022 03:00-0500 Mean blood pressure 100 mm[Hg] Vadim Gusman [facility] 02-03-2022 03:00-0500 Respiratory rate 39 /min Vadim Gusman [facility] 02-03-2022 03:00-0500 SaO2% (BldA) [Mass fraction] 91 % Vadim Gusman [facility] 02-03-2022 03:00-0500 Systolic blood pressure 163 mm[Hg] Vadim Gusman [facility] 02-03-2022 01:14-0500 gluc 186 mg/dL Vadim Naseem [facility] 02-03-2022 01:14-0500 gluc Vadim Gusman [facility] 02-03-2022 01:10-0500 Heart rate 70 /min Vadim Naseem [facility] 02-03-2022 01:10-0500 Respiratory rate 20 /min Vadim Naseem [facility] 02-02-2022 14:00-0400 Blood Pressure Location [facility] 02-02-2022 14:00-0400 BP/Pulse Patient Position [facility] 02-02-2022 14:00-0400 Respiratory rate 18 /min [facility] 02-02-2022 13:00-0400 Hourly Rounding [facility] 02-02-2022 12:33-0400 Hourly Rounding [facility] 02-02-2022 12:33-0400 Promise to Return [facility] 02-02-2022 11:09-0400 Body temperature 97.88 [degF] [facility] 02-02-2022 11:09-0400 Diastolic blood pressure 75 mm[Hg] [facility] 02-02-2022 11:09-0400 Heart rate 65 /min [facility] 02-02-2022 11:09-0400 Mean blood pressure 101 mm[Hg] [facility] 02-02-2022 11:09-0400 SaO2% (BldA) [Mass fraction] 94 % [facility] 02-02-2022 11:09-0400 Systolic blood pressure 154 mm[Hg] [facility] 02-02-2022 11:09-0400 Respiratory rate 20 /min [facility] 02-02-2022 11:00-0400 Hourly Rounding [facility] 02-02-2022 08:58-0400 Promise to Return [facility] 02-02-2022 07:29-0400 Body temperature 97.88 [degF] [facility] 02-02-2022 07:29-0400 Diastolic blood pressure 65 mm[Hg] [facility] 02-02-2022 07:29-0400 Heart rate 69 /min [facility] 02-02-2022 07:29-0400 Mean blood pressure 95 mm[Hg] [facility] 02-02-2022 07:29-0400 SaO2% (BldA) [Mass fraction] 92 % [facility] 02-02-2022 07:29-0400 Systolic blood pressure 153 mm[Hg] [facility] 02-02-2022 06:21-0400 Promise to Return [facility] 02-02-2022 02:05-0400 Body temperature 97.7 [degF] [facility] 02-02-2022 02:05-0400 Diastolic blood pressure 62 mm[Hg] [facility] 02-02-2022 02:05-0400 Heart rate 73 /min [facility] 02-02-2022 02:05-0400 Mean blood pressure 78 mm[Hg] [facility] 02-02-2022 02:05-0400 SaO2% (BldA) [Mass fraction] 93 % [facility] 02-02-2022 02:05-0400 Systolic blood pressure 112 mm[Hg] [facility] 02-01-2022 21:24-0400 gluc 261 mg/dL [facility] 02-01-2022 19:35-0400 Blood Pressure Location [facility] 02-01-2022 19:35-0400 BP/Pulse Patient Position [facility] 02-01-2022 19:35-0400 Respiratory rate 16 /min [facility] 02-01-2022 16:59-0400 gluc 225 mg/dL [facility] 02-01-2022 16:11-0400 Blood Pressure Location [facility] 02-01-2022 16:11-0400 BP/Pulse Patient Position [facility] 02-01-2022 11:11-0400 Mean blood pressure 123 mm[Hg] [facility] 02-01-2022 08:33-0400 Heart rate 78 /min [facility] 02-01-2022 08:08-0400 gluc 119 mg/dL [facility] 02-01-2022 05:20-0400 Heart rate 88 /min [facility] 02-01-2022 03:08-0400 Mean blood pressure 82 mm[Hg] [facility] 02-01-2022 01:01-0400 Mean blood pressure 88 mm[Hg] [facility] 01-31-2022 21:13-0400 Heart rate 83 /min [facility] 01-30-2022 14:00-0400 Mean blood pressure 88 mm[Hg] [facility] 01-30-2022 12:19-0400 Hourly Rounding [facility] 01-30-2022 12:19-0400 [facility] to Return [facility] 01-30-2022 12:00-0400 Body temperature 98.06 [degF] [facility] 01-30-2022 12:00-0400 Diastolic blood pressure 72 mm[Hg] [facility] 01-30-2022 12:00-0400 Heart rate 71 /min [facility] 01-30-2022 12:00-0400 SaO2% (BldA) [Mass fraction] 96 % [facility] 01-30-2022 12:00-0400 Systolic blood pressure 122 mm[Hg] [facility] 01-30-2022 11:19-0400 Hourly Rounding [facility] 01-30-2022 11:19-0400 [facility] 01-30-2022 10:48-0400 Hourly Rounding [facility] 01-30-2022 10:48-0400 [facility] 01-30-2022 08:00-0400 Body temperature 97.52 [degF] [facility] 01-30-2022 08:00-0400 Diastolic blood pressure 49 mm[Hg] [facility] 01-30-2022 08:00-0400 Heart rate 79 /min [facility] 01-30-2022 08:00-0400 SaO2% (BldA) [Mass fraction] 91 % [facility] 01-30-2022 08:00-0400 Systolic blood pressure 132 mm[Hg] [facility] 01-30-2022 06:00-0400 Diastolic blood pressure 46 mm[Hg] [facility] 01-30-2022 06:00-0400 Heart rate 64 /min [facility] 01-30-2022 06:00-0400 Mean blood pressure 70 mm[Hg] [facility] 01-30-2022 06:00-0400 Respiratory rate 19 /min [facility] 01-30-2022 06:00-0400 SaO2% (BldA) [Mass fraction] 94 % [facility] 01-30-2022 06:00-0400 Systolic blood pressure 110 mm[Hg] [facility] 01-30-2022 05:00-0400 Respiratory rate 14 /min [facility] 01-30-2022 04:00-0400 Body temperature 97.88 [degF] [facility] 01-30-2022 04:00-0400 Mean blood pressure 73 mm[Hg] [facility] 01-30-2022 00:00-0400 Body temperature 97.52 [degF] [facility] 01-29-2022 19:00-0400 Body temperature 98.06 [degF] [facility] 01-29-2022 16:31-0400 gluc 154 mg/dL [facility] 01-29-2022 11:00-0400 gluc 211 mg/dL [facility] 01-29-2022 08:00-0400 gluc 130 mg/dL [facility] 01-29-2022 07:00-0400 Blood Pressure Location [facility] 01-28-2022 19:00-0400 Respiratory rate 14 /min [facility] 01-28-2022 18:14-0400 Heart rate 73 /min [facility] 01-28-2022 18:14-0400 Respiratory rate 15 /min ramona [facility] 01-28-2022 17:00-0400 Respiratory rate 18 /min [facility] 01-28-2022 12:01-0400 Heart rate 99 /min [facility] 01-27-2022 17:31-0400 Diastolic blood pressure 60 mm[Hg] [facility] 01-27-2022 17:31-0400 Heart rate 63 /min [facility] 01-27-2022 17:31-0400 Mean blood pressure 99 mm[Hg] [facility] 01-27-2022 17:31-0400 Respiratory rate 20 /min [facility] 01-27-2022 17:31-0400 SaO2% (BldA) [Mass fraction] 97 % [facility] 01-27-2022 17:31-0400 Systolic blood pressure 177 mm[Hg] [facility] 01-27-2022 16:59-0400 Diastolic blood pressure 81 mm[Hg] [facility] 01-27-2022 16:59-0400 Heart rate 68 /min [facility] 01-27-2022 16:59-0400 Mean blood pressure 117 mm[Hg] [facility] 01-27-2022 16:59-0400 Respiratory rate 19 /min [facility] 01-27-2022 16:59-0400 SaO2% (BldA) [Mass fraction] 97 % [facility] 01-27-2022 16:59-0400 Systolic blood pressure 190 mm[Hg] [facility] 01-27-2022 16:00-0400 Diastolic blood pressure 73 mm[Hg] [facility] 01-27-2022 16:00-0400 Mean blood pressure 106 mm[Hg] [facility] 01-27-2022 16:00-0400 SaO2% (BldA) [Mass fraction] 99 % [facility] 01-27-2022 16:00-0400 Systolic blood pressure 171 mm[Hg] [facility] 01-27-2022 14:45-0400 Body temperature 97.88 [degF] [facility] 01-27-2022 14:45-0400 Heart rate 65 /min [facility] 11-17-2021 19:35-0400 Diastolic blood pressure 83 mm[Hg] Brady Yves [facility] 11-17-2021 19:35-0400 Heart rate 73 /min Brady Yves [facility] 11-17-2021 19:35-0400 Hourly Rounding Brady Godfreye [facility] 11-17-2021 19:35-0400 Respiratory rate 18 /min Brady Godfreye [facility] 11-17-2021 19:35-0400 SaO2% (BldA) [Mass fraction] 94 % Brady Yves [facility] 11-17-2021 19:35-0400 Systolic blood pressure 186 mm[Hg] Brady Yves [facility] 11-17-2021 18:28-0400 Diastolic blood pressure 59 mm[Hg] Brady Godfreye [facility] 11-17-2021 18:28-0400 Heart rate 69 /min Brady Yves [facility] 11-17-2021 18:28-0400 Mean blood pressure 96 mm[Hg] Brady Yves [facility] 11-17-2021 18:28-0400 Respiratory rate 14 /min Brady Godfreye [facility] 11-17-2021 18:28-0400 SaO2% (BldA) [Mass fraction] 93 % Brady Yves [facility] 11-17-2021 18:28-0400 Systolic blood pressure 171 mm[Hg] Brady Yves [facility] 11-17-2021 17:30-0400 Body temperature 97.88 [degF] Brady Yves [facility] 11-17-2021 17:30-0400 Diastolic blood pressure 75 mm[Hg] Brady Marinelli [facility] 11-17-2021 17:30-0400 Heart rate 78 /min Brady Marinelli [facility] 11-17-2021 17:30-0400 Respiratory rate 20 /min Brady Marinelli [facility] 11-17-2021 17:30-0400 SaO2% (BldA) [Mass fraction] 95 % Brady Marinelli [facility] 11-17-2021 17:30-0400 Systolic blood pressure 144 mm[Hg] Brady Marinelli [facility] Encounters Encounter Date Encounter Type Care Provider Facility Start: 11-11-2024 ambulatory Marcelo C Link Facility:[facility] Start: 03-04-2024 ambulatory Marcelo C Link Facility:[facility] Start: 03-04-2024 End: 03-04-2024 Patient encounter procedure Marcelo C Link [facility] Start: 01-01-2024 End: 01-01-2024 ambulatory Marcelo C Link [facility] Start: 01-01-2024 End: 01-01-2024 Patient encounter procedure Marcelo C Link [facility] Start: 12-30-2023 End: 12-30-2023 Lab Drop off Marcelo C Link [facility] Start: 12-30-2023 End: 12-30-2023 ambulatory Marcelo C Link [facility] Start: 12-30-2023 End: 12-30-2023 Patient encounter procedure Marcelo C Link [facility] Start: 11-28-2023 End: 11-28-2023 Lab Drop off Marcelo C Link [facility] Start: 11-28-2023 End: 11-28-2023 ambulatory Marcelo C Link Facility[place] Start: 11-28-2023 End: 11-28-2023 Well adult monitoring check done Marcelo C Link [facility] Start: 11-28-2023 End: 11-28-2023 ambulatory Marcelo C Link Facility:[facility] Start: 11-28-2023 End: 11-28-2023 Patient encounter procedure Marcelo C Link [facility] Start: 11-06-2023 End: 11-06-2023 ambulatory Marcelo C Link Facility:[facility] Start: 11-06-2023 End: 11-06-2023 Patient encounter procedure Marcelo C Link [facility] Start: 10-20-2023 End: 10-20-2023 ambulatory ARNOLD D HILLS Not Available Start: 09-23-2023 End: 09-23-2023 ambulatory Arnold D Beaver [place] Start: 09-23-2023 End: 09-23-2023 Patient encounter procedure Arnold D Beaver [facility] Start: 09-22-2023 End: 09-22-2023 ambulatory ARNOLD D HILLS Not Available Start: 09-18-2023 End: 09-18-2023 ambulatory Marcelo C Link Facility:[facility] Start: 09-18-2023 End: 09-18-2023 Patient encounter procedure Marcelo C Link [facility] Start: 08-07-2023 End: 08-07-2023 ambulatory Marcelo C Link Facility:[facility] Start: 08-07-2023 End: 08-07-2023 Patient encounter procedure Marcelo C Link [facility] Start: 08-01-2023 End: 08-01-2023 ambulatory Marcelo C Link Facility:[facility] Start: 08-01-2023 End: 08-01-2023 Patient encounter procedure Marcelo C Link [facility] Start: 07-01-2023 End: 07-01-2023 ambulatory Marcelo C Link Facility:[facility] Start: 07-01-2023 End: 07-01-2023 Patient encounter procedure Marcelo C Link [facility] Start: 07-01-2023 End: 07-01-2023 ambulatory JOAQUIM RICE Not Available Start: 05-20-2023 End: 05-20-2023 ambulatory JOAQUIM RICE Not Available Start: 05-20-2023 End: 05-24-2023 Pre-admission assessment Joaquim Rice [facility] Start: 05-12-2023 Telephone encounter Joaquim mcgarry DO Work Phone: [facility] Start: 05-09-2023 End: 05-21-2023 Pre-admission assessment Joaquim Rice [facility] Start: 04-11-2023 End: 04-11-2023 ambulatory Joaquim Rice [place] Start: 03-12-2023 End: 03-27-2023 Pre-admission assessment Joaquim Rice [facility] Start: 03-03-2023 End: 03-03-2023 ambulatory Ashish Chester Other [facility] Other Start: 03-03-2023 Office outpatient vi sit 25 minutes Ashish Chester [facility] Start: 02-13-2023 End: 02-13-2023 Admission to same day surgery center Joaquim A Hasmukh [facility] Start: 02-03-2023 End: 02-03-2023 ambulatory Ashish Chester Other [facility] Other Start: 02-03-2023 Office outpatient vi sit 25 minutes Ashish Chester [facility] Start: 01-13-2023 End: 01-13-2023 ambulatory Ashish Chester Other [facility] Other Start: 01-13-2023 Telephone encounter Ashish [facility] Start: 12-19-2022 End: 12-24-2022 Evaluation and management of inpatient Joaquim Rice [facility] Start: 12-08-2022 End: 12-08-2022 [facility]-Site [facility] Start: 12-03-2022 End: 12-03-2022 Off-Site [facility] Start: 11-24-2022 End: 11-29-2022 Evaluation and management of inpatient Reymundo JORDAN [facility] Start: 10-02-2022 End: 10-02-2022 Emergency department patient visit Raul Arnold [facility] Start: 09-04-2022 End: 09-04-2022 Emergency department patient visit Hari Martinez [facility] Start: 09-04-2022 End: 09-04-2022 Emergency department patient visit Marcelo Call [facility] Start: 08-09-2022 End: 08-09-2022 Emergency department patient visit Raul Arnold [facility] Start: 07-18-2022 End: 07-18-2022 Emergency department patient visit Ty Manrique [facility] Start: 07-18-2022 End: 08-09-2022 ambulatory UNKNOWN PROVIDER Facility:[facility] Start: 07-18-2022 End: 07-18-2022 ambulatory [facility] Triage, Treat and Transport Start: 07-18-2022 End: 07-18-2022 Emergency department patient visit [facility] Emergency Triage, Treat and Transport Comment on above: Arrived Start: 04-10-2022 End: 04-10-2022 Patient encounter procedure [place] DIAZ [facility] Start: 04-03-2022 End: 04-03-2022 Emergency department patient visit Raul Arnold [facility] Start: 04-02-2022 End: 04-02-2022 Emergency department patient visit Brady Marinelli [facility] Start: 03-13-2022 End: 03-13-2022 Emergency department patient visit Raul Arnold [facility] Start: 03-05-2022 End: 03-05-2022 Patient encounter procedure Marcelo Call [facility] Start: 02-13-2022 End: 02-13-2022 Patient encounter procedure Marcelo Rivers Link [facility] Start: 02-08-2022 End: 02-08-2022 Emergency department patient visit Ty Manrique [facility] Start: 02-03-2022 End: 02-03-2022 Emergency department patient visit Vadim Gusman [facility] Start: 01-31-2022 End: 02-02-2022 Observation Kilo HARRIS [facility] Start: 01-29-[address] Chuck Tom amutmisael [facility] Facility: Start: 01-28-2022 End: 01-30-2022 Observation Nomi Hart [facility] Start: 01-28-2022 End: 01-28-2022 Patient encounter procedure Jean Claude Akjennifer [facility] Start: 01-27-2022 End: 01-27-2022 Emergency department patient visit Earnest Lakeshia Ismael [facility] Start: 11-17-2021 End: 11-17-2021 Emergency department patient visit Brady Marinelli [facility] Start: 11-09-2021 End: 11-09-2021 Patient encounter procedure Marcelo Rivers Link [facility] Start: 11-08-2021 End: 11-14-2021 Pre-admission assessment Marcelo C Link [facility] Start: 10-15-2021 End: 10-15-2021 Patient encounter procedure Marcelo Call [facility] Procedures Date Procedure Procedure Detail Performing Clinician Start: 04-11-2023 Aspiration of hip joint Joaquim Rice Start: 02-13-2023 Aspiration of hip joint Joaquim Rice Comment on above: d/t infection Start: 12-20-2022 Repair of fracture of hip by nailing using fluoroscopic guidance Joaquim Rice Start: 11-25-2022 History of hemiarthroplasty of right hip Reymundo HERRLIN Start: 05-09-2022 Esophagogastroduodenoscopy Ty Duvallcarlinbyron jabier Start: [...] Marcelo Link Start: 12-14-2012 Right knee surgery aMrcelo Link BASILAR ARTHROPLASTY OF THUMB 3 Marcelo Call Comment on above: LEFT BASILAR ARTHROPLASTY OF THUMB 4 Joaquim Rice Comment on above: LEFT Cyst - diagnostic aspiration Marcelo Call Comment on above: Left shoulder blade Extracorporeal shock wave lithotripsy of calculus of kidney Marcelo Call gallbladder removed Marcelo palomares jaw surgery Marcelo Call left knee ORIF Marcelo Call Total abdominal hyst erectomy with bilateral salpingo-oophorectomy Marcelo Call 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 5, 6 Marcelo Call Comment on above: 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 6, 7 Joaquim Rice Comment on above: left benign Plan of Treatment Date Care Activity Detail Author Start: 10-31-2026 Screening for malign ant neoplasm of colon [facility] Start: 11-29-2022 Influenza vaccination Influenza Vacc ine (#1) [facility] Start: 12-23-2019 Screening for malign ant neoplasm of breast Mammogram [facility] Start: 10-10-2019 Pneumococcal vaccination Pneum ococcal Vaccine(s) (65+ yrs) (1 - PCV) [facility] Start: 10-10-2019 Pneumococcal Vaccine : 65+ Years (3 - PPSV23 or PCV20) Pneumococcal Vaccine: 65+ Years (3 - PPSV23 or PCV20) [facility] Start: 10-10-2019 Screening for osteoporosis Bone [...] COVID-19 Vaccine (#1) COVID-19 Vacci ne (#1) [facility] Start: 1955 Screening for malign ant neoplasm of colon [facility] Immunizations Immunization Date Immunization Notes Care Provider Carley vincent 12-29-2022 influenza virus vaccine, unspecified formulation Marcelo Link [facility] Femi Comment on above: Result Comment: nurs ing home 07-30-2020 SARS-CoV-2 (COVID-19 ) mRNA BNT-162b2 vax Jean Claude Akkina [facility] 07-10-2020 SARS-CoV-2 (COVID-19 ) mRNA BNT-162b2 vax Jean Claude Akkina [facility] 03-01-2020 influenza virus vaccine, unspecified formulation Jean Claude Akkina [facility] 03-31-2019 SARS-CoV-2 (COVID-19 ) mRNA BNT-162b2 vax Marcelo Link [facility] 12-30-2018 influenza virus vaccine, unspecified formulation Jean Claude Akkina [facility] 12-30-2017 influenza virus vaccine, unspecified formulation Jean Claude Akkina [facility] 06-10-2013 pneumococcal conjuga te vaccine, 13 valent Jean Claude Akkina [facility] 06-10-2013 influenza, seasonal, injectable Marcelo Link [facility] 06-10-2013 pneumococcal polysaccharide vaccine, 23 valent Marcelo Link [facility] 10-30-2010 tetanus toxoid, redu polina diphtheria toxoid, and acellular pertussis vaccine, adsorbed Marcelo Link [facility] Comment on above: Early/Late Reason: O THER: 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 reports that she had an Adacel injection less than 5 years ago. Payers Date Payer Category [facility]ayer [facility] [place] [id number] 2021-Present [phone] [address] [place] [address] Medicaid [id number] 2021 Medicaid [id number] 2021 Unknown [id number] 2012 Medicare MEDICARE MEDICAR E PART B [id number] 2012-[place] [place] [address] Medicare [id number] 2012 Medicare [id number] 1954 Unknown [id number] [id number]6 1954 Unknown [id number] 2.16.840.1.162996.3.579.2.356 1954 Unknown [id number] 2.16.840.1.008030.3.579.2.732 1954 Unknown [id number] 2.16.840.1.230211.3.579.2.1259 1954 Unknown [id number] 2.16.840.1.626239.3.579.2.1259 1954 Unknown [id number] 2.16.840.1.169695.3.579.2.1259 1954 Unknown [id number] 2.16.840.1.187892.3.579.2.1258 1954 Unknown [id number] 2.16.840.1.972401.3.579.2.1258 1954 Unknown [id number] 2.16.840.1.234149.3.579.2.1258 1954 Unknown [id number] 2.16.840.1.924416.3.579.2.1258 1954 Unknown [id number] 2.16.840.1.337691.3.579.2.1258 1954 Unknown [id number] 2.16.840.1.984228.3.579.2. 1954 Unknown [id number] 2.16.840.1.305704.3.579.2. 1954 Unknown [id number] 2.16.840.1.675840.3.579.2. 1954 Unknown [id number] 2.16.840.1.796144.3.579.2 1954 Unknown [id number] 2.16.840.1.051359.3.579.2. 1954 Unknown [id number] 2.16.840.1.940657.3.579.2 1954 Unknown [id number] 2.16.840.1.667791.3.579.2 1954 Unknown [id number] 2.16.840.1.253266.3.579.2. 1954 Unknown [id number] 2.16.840.1.916837.3.579.2. 1954 Unknown [id number] 2.16.840.1.472674.3.579.2. 1954 Unknown [id number] 2.16.840.1.298778.3.579.2.727 1954 Unknown [id number] 2.16.840.1.874751.3.579.2.727 1954 Unknown [id number] 2.16.840.1.759695.3.579.2.727 1954 Unknown [id number] 2.16.840.1.682430.3.579.2.727 1954 Unknown [id number] 2.16.840.1.405879.3.579.2.727 1954 Unknown [id number] 2.16.840.1.714773.3.579.2.727 Social History Date Type Detail Facility Start: 01-19-2021 End: 03-04-2024 Tobacco smoking status Never smoked tobacco (finding) [facility] Comment on above: denies Tobacco smoking status Never [facility] Comment on above: denies Start: 02-06-2023 Sex Assigned At Female F [facility] Tobacco smoking status [facility] Start: 1955 Sex Assigned At Not on [facility] Administration Comment on above: denies Tobacco smoking status No Smoking Status Entered [facility] Start: 12-19-2022 Tobacco use and exposure Smokeless tobacco non-user [facility] Start: 04-10-2023 Alcohol intake Lifetime non-d charlie (finding) [facility] Start: 02-06-2023 History of Social function [facility] Medical Equipment Procedure Code Equipment Code Equipment Origin al Text Equipment Identifier Dates HIP BIPOLAR ARTHROPLASTY Joaquim Rice DO 11/25/22 Non Biological Hip R {[id number] FDA Start: 11-25-2022 HIP TOTAL ARTHRO PLASTY [...] 12-20-2022 HIP TOTAL ARTHRO PLASTY REVISION Humble Riec DOson A 12/20/22 Unknown Hip R FDA Start: 12-20-2022 HIP TOTAL ARTHRO PLASTY REVISION Humble Rice DOson A 12/20/22 Unknown Hip R FDA Start: 12-20-2022 HIP TOTAL ARTHRO PLASTY REVISION Humble Rice DOson A 12/20/22 Unknown Hip R FDA Start: 12-20-2022 HIP TOTAL ARTHRO PLASTY REVISION Humble Rice DOson A 12/20/22 Unknown Hip R FDA Start: 12-20-2022 HIP TOTAL ARTHRO PLASTY REVISION Hasmukh DUVALLJoaquim A 12/20/22 Unknown Hip R FDA Start: 12-20-2022 HIP TOTAL ARTHRO PLASTY REVISION Joaquim Rice DO 12/20/22 Unknown Hip R FDA Start: 12-20-2022 HIP TOTAL ARTHRO PLASTY REVISION Joaquim Rice DO 12/20/22 Unknown Hip R FDA Start: 12-20-2022 Functional Status Date Assessment Result Facility 03-04-2024 Functional Status N/A [facility] 12-30-2023 Functional Status N/A [facility] 11-28-2023 Functional Status N/A [facility] 11-06-2023 Functional Status N/A [facility] 09-18-2023 Functional Status N/A [facility] 08-07-2023 Functional Status N/A [facility] 07-01-2023 Functional Status N/A [facility] 02-12-2023 Functional Status No [facility] 12-19-2022 Functional Status N/A [facility] 11-24-2022 Functional Status No [facility] 11-24-2022 Functional Status [facility] 10-02-2022 Functional Status N/A [facility] 09-04-2022 Functional Status N/A [facility] 09-04-2022 Functional Status N/A [facility] 08-09-2022 Functional Status N/A [facility] 07-18-2022 Functional Status N/A [facility] 04-10-2022 Functional Status N/A [facility] 04-03-2022 Functional Status N/A [facility] 04-02-2022 Functional Status N/A [facility] 03-13-2022 Functional Status N/A [facility] 02-08-2022 Functional Status N/A [facility] 02-03-2022 Functional Status N/A [facility] 02-01-2022 Functional Status No [facility] 01-31-2022 Functional Status [facility] 01-28-2022 Functional Status N/A [facility] 01-28-2022 Functional Status [facility] 01-27-2022 Functional Status N/A [facility] 11-17-2021 Functional Status N/A [facility] Clinical Notes 11-17-2021 to 12-29-2023 Telephone Encounter - [facility] - 05/12/2023 10:28 AM ESTTelephone Encounter - [facility] - 05/12/2023 10:28 AM EST Note Date & Type Note Facility 12-29-2023 Hospital Discharg e instructions Follow Up Care 12/29/2023 15:38:55 With:Link DO Marcelo ISABELA Rivers Address: [address] [place] [address]- When:4 weeks Comments:4 WEEKS FOLLOWUP [facility] Femi 11-28-2023 Hospital Discharg e instructions Patient Education 11/28/2023 15:51:18 Preventive Care 65 Years and Older, Female Preventive Care 65 Years and Older, Female Preventive care refers to lifestyle choices and visits with your health care provider that can promote health and wellness. Preventive care visits are also called wellness exams. What can I expect for my preventive care visit? Counseling Your health care provider may ask you questions about your: Medical history, including: ?Past medical problems. ?Family medical history. ? and menstrual history. ?History of falls. Current health, including: ?Memory and ability to understand (cognition). ?Emotional well-being. ?Home life and relationship well-being. ?Sexual activity and sexual health. Lifestyle, including: ?Alcohol, nicotine or tobacco, and drug use. ?Access to firearms. ?Diet, exercise, and sleep habits. ?Work and work environment. ?Sunscreen use. ?Safety issues such as seatbelt and bike helmet use. Physical exam Your health care provider will check your: Height and weight. These may be used to calculate your BMI (body mass index). BMI is a measurement that tells if you are at a healthy weight. Waist circumference. This measures the distance around your waistline. This measurement also tells if you are at a healthy weight and may help predict your risk of certain diseases, such as type 2 diabetes and high blood pressure. Heart rate and blood pressure. Body temperature. Skin for abnormal spots. What immunizations do I need? Vaccines are usually given at various ages, according to a schedule. Your health care provider will recommend vaccines for you based on your age, medical history, and lifestyle or other factors, such as travel or where you work. What tests do I need? Screening Your health care provider may recommend screening tests for certain conditions. This may include: Lipid and cholesterol levels. Hepatitis C test. Hepatitis B test. HIV (human immunodeficiency virus) test. STI (sexually transmitted infection) testing, if you are at risk. Lung cancer screening. Colorectal cancer screening. Diabetes screening. This is done by checking your blood sugar (glucose) after you have not eaten for a while (fasting). Mammogram. Talk with your health care provider about how often you should have regular mammograms. BRCA-related cancer screening. This may be done if you have a family history of breast, ovarian, tubal, or peritoneal cancers. Bone density scan. This is done to screen for osteoporosis. Talk with your health care provider about your test results, treatment options, and if necessary, the need for more tests. Follow these instructions at home: Eating and drinking Eat a diet that includes fresh fruits and vegetables, whole grains, lean protein, and low-fat dairy products. Limit your intake of foods with high amounts of sugar, saturated fats, and salt. Take vitamin and mineral supplements as recommended by your health care provider. Do not drink alcohol if your health care provider tells you not to drink. If you drink alcohol: ?Limit how much you have to 0 1 drink a day. ?Know how much alcohol is in your drink. In the [place] one drink equals one 12 oz bottle of beer (355 mL), one 5 oz glass of wine (148 mL), or one 1 oz glass of hard liquor (44 mL). Lifestyle [place] your teeth every morning and night with fluoride toothpaste. Floss one time each day. Exercise for at least 30 minutes 5 or more days each week. Do not use any products that contain nicotine or tobacco. These products include cigarettes, chewing tobacco, and vaping devices, such as e-cigarettes. If you need help quitting, ask your health care provider. Do not use drugs. If you are sexually active, practice safe sex. Use a condom or other form of protection in order to prevent STIs. Take aspirin only as told by your health care provider. Make sure that you understand how much to take and what form to take. Work with your health care provider to find out whether it is safe and beneficial for you to take aspirin daily. Ask your health care provider if you need to take a cholesterol-lowering medicine (statin). Find healthy ways to manage stress, such as: ?Meditation, yoga, or listening to music. ?Journaling. ?Talking to a trusted person. ?Spending time with friends and family. Minimize exposure to UV radiation to reduce your risk of skin cancer. Safety Always wear your seat belt while driving or riding in a vehicle. Do not drive: ?If you have been drinking alcohol. Do not ride with someone who has been drinking. ?When you are tired or distracted. ?While texting. ?If you have been using any mind-altering substances or drugs. Wear a helmet and other protective equipment during sports activities. If you have firearms in your house, make sure you follow all gun safety procedures. What's next? Visit your health care provider once a year for an annual wellness visit. Ask your health care provider how often you should have your eyes and teeth checked. Stay up to date on all vaccines. This information is not intended to replace advice given to you by your health care provider. Make sure you discuss any questions you have with your health care provider. Document Revised: 09/12/2021 Document Reviewed: 09/12/2021 [employer] Patient Education 2023 [email or web address] 11/28/2023 15:51:16 Preventing Health Risks of Being Overweight Preventing Health Risks of Being Overweight Maintaining a healthy body weight is an important part of your overall health. Your healthy body weight depends on your age, gender, and height. Being overweight puts you at risk for many health problems. You can make changes to your diet and lifestyle to prevent these risks. Consider working with a health care provider or a dietitian to make these changes. How can being overweight affect me? Being overweight can affect you for your entire life. You may develop joint or bone problems that make it painful or difficult for you to play sports or do activities you enjoy. Being overweight also puts stress on your heart and lungs and can lead to medical problems such as: Heart disease. Diabetes. Some types of cancer. Stroke. Eating healthy and being active helps you lose weight and prevents health problems caused by being overweight. Making these changes can also help you manage stress, feel better mentally, and connect with friends and family. What can increase my risk? In addition to certain diet and lifestyle choices, some other factors that may make you more likely to be overweight include: Having a family history of obesity. Living in an area with limited access to: ?[place], recreation centers, or sidewalks. ?Healthy food choices, such as grocery stores and ABS' markets. What actions can I take to prevent health risks of being overweight? Nutrition Eat only as much as your body needs. In most cases, this is about 2,000 calories a day, but the amount varies depending on your height, gender, and activity level. Ask your health care provider how many calories you should have each day. Eating more than your body needs on a regular basis can cause you to become overweight or obese. Eat slowly, and stop eating when you feel full. Choose healthy foods, including: ?Fruits and vegetables. ?Lean meats. ?Low-fat dairy products. ?High-fiber foods, such as whole grains and beans. ?Healthy snacks like vegetable sticks, a piece of fruit, or a small amount of yogurt or cheese. Avoid foods and drinks that are high in sugar, salt (sodium), saturated fat, or trans fat. This includes: ?Many desserts such as candy, cookies, and ice cream. ?Soda. ?Fried foods. ?Processed, precooked, or cured meat, such as hot dogs, sausages, or meat loaves. ?Prepackaged snack foods. Lifestyle Exercise for at least 150 minutes a week to prevent weight gain, or as often as recommended by your health care provider. Do moderate-intensity exercise, such as brisk walking. ?Spread it out by exercising for 30 minutes 5 days a week, or in short 10-minute bursts several times a day. Find other ways to stay active and burn calories, such as yard work or a hobby that involves physical activity. Get at least 8 hours of sleep each night. When you are well rested, you are more likely to be active and make healthy choices during the day. To sleep better: ?Try to go to bed and wake up at about the same time every day. ?Keep your bedroom dark, quiet, and cool. ?Make sure that your bed is comfortable. ?Avoid stimulating activities, such as watching television or exercising, for at least an hour before bedtime. Where to find support You can get support for preventing health risks of being overweight from: Your health care provider or a dietitian. They can provide guidance about healthy eating and healthy lifestyle choices. Weight loss support groups, online or in-person. Where to find more information MyPlate: www.choosemyplate.gov ?This an online tool that provides personalized recommendations about foods to eat each day. The Centers for Disease Control and Prevention: www.cdc.gov/healthyweight ?This resource gives tips for managing weight and having an active lifestyle. Summary Eating healthy and being active helps you lose weight and prevents health problems caused by being overweight. Being overweight puts stress on your heart and lungs and can lead to medical problems such as diabetes, heart disease, some types of cancer, and stroke. This information is not intended to replace advice given to you by your health care provider. Make sure you discuss any questions you have with your health care provider. Document Revised: 10/12/2021 Document Reviewed: 10/12/2021 [employer] Patient Education 2023 [email or web address] 11/28/2023 15:51:12 Diabetes Mellitus and Exercise Diabetes Mellitus and Exercise Regular exercise is important for your health, especially if you have diabetes mellitus. Exercise is not just about losing weight. It can also help you increase muscle strength and bone density and reduce body fat and stress. This can help your level of endurance and make you more fit and flexible. Why should I exercise if I have diabetes? Exercise has many benefits for people with diabetes. It can: Help lower and control your blood sugar (glucose). Help your body respond better and become more sensitive to the hormone insulin. Reduce how much insulin your body needs. Lower your risk for heart disease by: ?Lowering how much bad cholesterol and triglycerides you have in your body. ?Increasing how much good cholesterol you have in your body. ?Lowering your blood pressure. ?Lowering your blood glucose levels. What is my activity plan? Your health care provider or an expert trained in diabetes care (certified alcohol and drug counselor) can help you make an activity plan. This plan can help you find the type of exercise that works for you. It may also tell you how often to exercise and for how long. Be sure to: Get at least 150 minutes of medium-intensity or high-intensity exercise each week. This may involve brisk walking, biking, or water aerobics. Do stretching and strengthening exercises at least 2 times a week. This may involve yoga or weight lifting. Spread out your activity over at least 3 days of the week. Get some form of physical activity each day. ?Do not go more than 2 days in a row without some kind of activity. ?Avoid being inactive for more than 30 minutes at a time. Take frequent breaks to walk or stretch. Choose activities that you enjoy. Set goals that you know you can accomplish. Start slowly and increase the intensity of your exercise over time. How do I manage my diabetes during exercise? Monitor your blood glucose Check your blood glucose before and after you exercise. ?If your blood glucose is 240 mg/dL (13.3 mmol/L) or higher before you exercise, check your urine for ketones. These are chemicals created by the liver. If you have ketones in your urine, do not exercise until your blood glucose returns to normal. ?If your blood glucose is 100 mg/dL (5.6 mmol/L) or lower, eat a snack that has 15 20 grams of carbohydrate in it. Check your blood glucose 15 minutes after the snack to make sure that your level is above 100 mg/dL (5.6 mmol/L) before you start to exercise. Your risk for low blood glucose (hypoglycemia) goes up during and after exercise. Know the symptoms of this condition and how to treat it. Follow these instructions at home: Keep a carbohydrate snack on hand for use before, during, and after exercise. This can help prevent or treat hypoglycemia. Avoid injecting insulin into parts of your body that are going to be used during exercise. This may include: ?Your arms, when you are going to play tennis. ?Your legs, when you are about to go jogging. Keep track of your exercise habits. This can help you and your health care provider watch and adjust your activity plan. Write down: ?What you eat before and after you exercise. ?Blood glucose levels before and after you exercise. ?The type and amount of exercise you do. Talk to your health care provider before you start a new activity. They may need to: ?Make sure that the activity is safe for you. ?Adjust your insulin, other medicines, and food that you eat. Drink water while you exercise. This can stop you from losing too much water (dehydration). It can also prevent problems caused by having a lot of heat in your body (heat stroke). Where to find more information [place] [employer]: diabetes.org Association of Diabetes Care & Education Specialists: diabeteseducator.org This information is not intended to replace advice given to you by your health care provider. Make sure you discuss any questions you have with your health care provider. Document Revised: 09/04/2022 Document Reviewed: 09/04/2022 [employer] Patient Education 2023 [email or web address] 11/28/2023 15:51:12 Diabetes Mellitus and Foot Care Diabetes Mellitus and Foot Care Diabetes, also called diabetes mellitus, may cause problems with your feet and legs because of poor blood flow (circulation). Poor circulation may make your skin: Become thinner and spray drier operator helper. Break more easily. Heal more slowly. Peel and crack. You may also have nerve damage (neuropathy). This can cause decreased feeling in your legs and feet. This means that you may not notice minor injuries to your feet that could lead to more serious problems. Finding and treating problems early is the best way to prevent future foot problems. How to care for your feet Foot hygiene Wash your feet daily with warm water and mild soap. Do not use hot water. Then, pat your feet and the areas between your toes until they are fully dry. Do not soak your feet. This can dry your skin. Trim your toenails straight across. Do not [...] not too tight. Do not wear knee-high stockings. These may decrease blood flow to your legs. Wear shoes that fit well and have enough cushioning. Always look in your shoes before you put them on to be sure there are no objects inside. To break in new shoes, wear them for just a few hours a day. This prevents injuries on your feet. Wounds, scrapes, corns, and calluses Check your feet daily for blisters, cuts, bruises, sores, and redness. If you cannot see the bottom of your feet, use a mirror or ask someone for help. Do not cut off corns or calluses or try to remove [...] ?Warmth. ?Pus or a bad smell. General tips Do not cross your legs. This may [...] foot exam at least once a year or more often if you have foot problems. Report any cuts, sores, or bruises to your health care provider right away. Where to find more information [place] [employer]: diabetes.org Association of Diabetes Care & Education Specialists: diabeteseducator.org Contact a health care provider if: You have a condition that increases your risk of infection, and you have any cuts, sores, or bruises on your feet. You have an injury that is not healing. You have redness on your legs or feet. You feel burning or tingling in your legs or feet. You have pain or cramps in your legs and feet. Your legs or feet are numb. Your feet always feel cold. You have pain around any toenails. Get help right away if: You have a wound, scrape, corn, or callus on your foot and: ?You have signs of infection. ?You have a fever. ?You have a red line going up your leg. This information is not intended to replace advice given to you by your health care provider. Make sure you discuss any questions you have with your health care provider. Document Revised: 09/18/2022 Document Reviewed: 09/18/2022 [employer] Patient Education 2023 [email or web address] 11/28/2023 15:51:11 DASH Eating Plan DASH Eating Plan DASH stands for Dietary Approaches to Stop Hypertension. The DASH eating plan is a healthy eating plan that has been shown to: Lower high blood pressure (hypertension). Reduce your risk for type 2 diabetes, heart disease, and stroke. Help with weight loss. What are tips for following this plan? Reading food labels Check food labels for the amount of salt (sodium) per serving. Choose foods with less than 5 percent of the Daily Value (DV) of sodium. In general, foods with less than 300 milligrams (mg) of sodium per serving fit into this eating plan. To find whole grains, look for the word whole as the first word in the ingredient list. Shopping Buy products labeled as low-sodium or no salt added. Buy fresh foods. Avoid canned foods and pre-made or frozen meals. Cooking Try not to add salt when you cook. Use salt-free seasonings or herbs instead of table salt or sea salt. Check with your health care provider or pharmacist before using salt substitutes. Do not [place] foods. Cook foods in healthy ways, such as baking, boiling, grilling, roasting, or broiling. Cook using oils that are good for your heart. These include olive, canola, avocado, soybean, and sunflower oil. Meal planning Eat a balanced diet. This should include: ?4 or more servings of fruits and 4 or more servings of vegetables each day. Try to fill half of your plate with fruits and vegetables. ?6 8 servings of whole grains each day. ?6 or less servings of lean meat, poultry, or fish each day. 1 oz is 1 serving. A 3 oz (85 g) serving of meat is about the same size as the palm of your hand. One egg is 1 oz (28 g). ?2 3 servings of low-fat dairy each day. One serving is 1 cup (237 mL). ?1 serving of nuts, seeds, or beans 5 times each week. ?2 3 servings of heart-healthy fats. Healthy fats called omega-3 fatty acids are found in foods such as walnuts, flaxseeds, fortified milks, and eggs. These fats are also found in cold-water fish, such as sardines, salmon, and mackerel. Limit how much you eat of: ?Canned or prepackaged foods. ?Food that is high in trans fat, such as fried foods. ?Food that is high in saturated fat, such as fatty meat. ?Desserts and other sweets, sugary drinks, and other foods with added sugar. ?Full-fat dairy products. Do not salt foods before eating. Do not eat more than 4 egg yolks a week. Try to eat at least 2 vegetarian meals a week. Eat more home-cooked food and less restaurant, buffet, and fast food. Lifestyle When eating at a restaurant, ask if your food can be made with less salt or no salt. If you drink alcohol: ?Limit how much you have to: ?0 1 drink a day if you are female. ?0 2 drinks a day if you are male. ?Know how much alcohol is in your drink. In the [place] one drink is one 12 oz bottle of beer (355 mL), one 5 oz glass of wine (148 mL), or one 1 oz glass of hard liquor (44 mL). General information Avoid eating more than 2,300 mg of salt a day. If you have hypertension, you may need to reduce your sodium intake to 1,500 mg a day. Work with your provider to stay at a healthy body weight or lose weight. Ask what the best weight range is for you. On most days of the week, get at least 30 minutes of exercise that causes your heart to beat faster. This may include walking, swimming, or biking. Work with your provider or dietitian to adjust your eating plan to meet your specific calorie needs. What foods should I eat? Fruits All fresh, dried, or frozen fruit. Canned fruits that are in their natural juice and do not have sugar added to them. Vegetables Fresh or frozen vegetables that are raw, steamed, roasted, or grilled. Low-sodium or reduced-sodium tomato and vegetable juice. Low-sodium or reduced-sodium tomato sauce and tomato paste. Low-sodium or reduced-sodium canned vegetables. Grains Whole-grain or whole-wheat bread. Whole-grain or whole-wheat pasta. Brown rice. Oatmeal. Quinoa. Bulgur. Whole-grain and low-sodium cereals. Melba bread. Low-fat, low-sodium crackers. Whole-wheat flour tortillas. Meats and other proteins Skinless chicken or turkey. Ground chicken or turkey. Pork with fat trimmed off. Fish and seafood. Egg whites. Dried beans, peas, or lentils. Unsalted nuts, nut butters, and seeds. Unsalted canned beans. Lean cuts of beef with fat trimmed off. Low-sodium, lean precooked or cured meat, such as sausages or meat loaves. Dairy Low-fat (1%) or fat-free (skim) milk. Reduced-fat, low-fat, or fat-free cheeses. Nonfat, low-sodium ricotta or cottage cheese. Low-fat or nonfat yogurt. Low-fat, low-sodium cheese. Fats and oils Soft margarine without trans fats. Vegetable oil. Reduced-fat, low-fat, or light mayonnaise and salad dressings (reduced-sodium). Canola, safflower, olive, avocado, soybean, and sunflower oils. Avocado. Seasonings and condiments Herbs. Spices. Seasoning mixes without salt. Other foods Unsalted popcorn and pretzels. Fat-free sweets. The items listed above may not be all the foods and drinks you can have. Talk to a dietitian to learn more. What foods should I avoid? Fruits Canned fruit in a light or heavy syrup. Fried fruit. Fruit in cream or butter sauce. Vegetables Creamed or fried vegetables. Vegetables in a cheese sauce. Regular canned vegetables that are not marked as low-sodium or reduced-sodium. Regular canned tomato sauce and paste that are not marked as low-sodium or reduced-sodium. Regular tomato and vegetable juices that are not marked as low-sodium or reduced-sodium. Pickles. Olives. Grains Baked goods made with fat, such as croissants, muffins, or some breads. Dry pasta or rice meal packs. Meats and other proteins Fatty cuts of meat. Ribs. Fried meat. Mart. Bologna, salami, and other precooked or cured meats, such as sausages or meat loaves, that are not lean and low in sodium. Fat from the back of a pig (fatback). Bratwurst. Salted nuts and seeds. Canned beans with added salt. Canned or smoked fish. Whole eggs or egg yolks. Chicken or turkey with skin. Dairy Whole or 2% milk, cream, and [id number]. Whole or full-fat cream cheese. Whole-fat or sweetened yogurt. Full-fat cheese. Nondairy creamers. Whipped toppings. Processed cheese and cheese spreads. Fats and oils Butter. Stick margarine. Lard. Shortening. Ghee. Mart fat. Tropical oils, such as coconut, palm kernel, or palm oil. Seasonings and condiments Onion salt, garlic salt, seasoned salt, table salt, and sea salt. Worcestershire sauce. Tartar sauce. Barbecue sauce. Teriyaki sauce. Soy sauce, including reduced-sodium soy sauce. Steak sauce. Canned and packaged gravies. Fish sauce. Oyster sauce. Cocktail sauce. Store-bought horseradish. Ketchup. Mustard. Meat flavorings and tenderizers. Bouillon cubes. Hot sauces. Pre-made or packaged marinades. Pre-made or packaged taco seasonings. Relishes. Regular salad dressings. Other foods Salted popcorn and pretzels. The items listed above may not be all the foods and drinks you should avoid. Talk to a dietitian to learn more. Where to find more information National Heart, Lung, and Blood [place] (NHLBI): nhlbi.nih.gov [place] [employer] (AHA): heart.org Academy of Nutrition and Dietetics: eatright.org National Kidney Foundation (NKF): kidney.org This information is not intended to replace advice given to you by your health care provider. Make sure you discuss any questions you have with your health care provider. Document Revised: 04/03/2023 Document Reviewed: 04/03/2023 [employer] Patient Education 2023 [employer] 11/28/2023 15:51:09 BMI for Adults BMI for Adults Body mass index (BMI) is a number found using a person's weight and height. BMI can help tell how much of a person's weight is made up of fat. BMI does not measure body fat directly. It is used instead of tests that directly measure body fat, which can be difficult and expensive. What are BMI measurements used for? BMI is useful to: Find out if your weight puts you at higher risk for medical problems. Help recommend changes, such as in diet and exercise. This can help you reach a healthy weight. BMI screening can be done again to see if these changes are working. How is BMI calculated? Your height and weight are measured. The BMI is found from those numbers. This can be done with U.S[place] or metric measurements. Note that charts and online BMI calculators are available to help you find your BMI quickly and easily without doing these calculations. To calculate your BMI in U.S[place] measurements: 1.Measure your weight in pounds (lb). 2.Multiply the number of pounds by 703. So, for an adult who weighs 150 lb, multiply that number by 703: 150 x 703, which equals 105,450. 3.Measure your height in inches. Then multiply that number by itself to get a measurement called inches squared. So, for an adult who is 70 inches tall, the inches squared measurement is 70 inches x 70 inches, which equals 4,900 inches squared. 4.Divide the total from step 2 (number of lb x 703) by the total from step 3 (inches squared): 105,450 4,900 = 21.5. This is your BMI. To calculate your BMI in metric measurements: 1.Measure your weight in kilograms (kg). For this example, the weight is 70 kg. 2.Measure your height in meters (m). Then multiply that number by itself to get a measurement called meters squared. So, for an adult who is 1.75 m tall, the meters squared measurement is 1.75 m x 1.75 m, which equals 3.1 meters squared. 3.Divide the number of kilograms (your weight) by the meters squared number. In this example: 70 3.1 = 22.6. This is your BMI. What do the results mean? BMI charts are used to see if you are underweight, normal weight, overweight, or obese. The following guidelines will be used: Underweight: BMI less than 18.5. Normal weight: BMI between 18.5 and 24.9. Overweight: BMI between 25 and 29.9. Obese: BMI of 30 or above. BMI is a tool and cannot diagnose a condition. Talk with your health care provider about what your BMI means for you. Keep these notes in mind: Weight includes fat and muscle. Someone with a muscular build, such as an athlete, may have a BMI that is higher than 24.9. In cases like these, BMI is not a correct measure of body fat. If you have a BMI of 25 or higher, your provider may need to do more testing to find out if excess body fat is the cause. BMI is measured the same way for males and females. Females usually have more body fat than males of the same height and weight. Where to find more information For more information about BMI, including tools to quickly find your BMI, go to: Centers for Disease Control and Prevention: cdc.gov [place] Heart Association: heart.org National Heart, Lung, and Blood [place]: nhlbi.nih.gov This information is not intended to replace advice given to you by your health care provider. Make sure you discuss any questions you have with your health care provider. Document Revised: 12/05/2022 Document Reviewed: 11/28/2022 [employer] Patient Education 2023 [email or web address]. 11/28/2023 15:50:18 BMI for Adults BMI for Adults Body mass index (BMI) is a number found using a person's weight and height. BMI can help tell how much of a person's weight is made up of fat. BMI does not measure body fat directly. It is used instead of tests that directly measure body fat, which can be difficult and expensive. What are BMI measurements used for? BMI is useful to: Find out if your weight puts you at higher risk for medical problems. Help recommend changes, such as in diet and exercise. This can help you reach a healthy weight. BMI screening can be done again to see if these changes are working. How is BMI calculated? Your height and weight are measured. The BMI is found from those numbers. This can be done with U.S. or metric measurements. Note that charts and online BMI calculators are available to help you find your BMI quickly and easily without doing these calculations. To calculate your BMI in U.S. measurements: 1.Measure your weight in pounds (lb). 2.Multiply the number of pounds by 703. So, for an adult who weighs 150 lb, multiply that number by 703: 150 x 703, which equals 105,450. 3.Measure your height in inches. Then multiply that number by itself to get a measurement called inches squared. So, for an adult who is 70 inches tall, the inches squared measurement is 70 inches x 70 inches, which equals 4,900 inches squared. 4.Divide the total from step 2 (number of lb x 703) by the total from step 3 (inches squared): 105,450 4,900 = 21.5. This is your BMI. To calculate your BMI in metric measurements: 1.Measure your weight in kilograms (kg). For this example, the weight is 70 kg. 2.Measure your height in meters (m). Then multiply that number by itself to get a measurement called meters squared. So, for an adult who is 1.75 m tall, the meters squared measurement is 1.75 m x 1.75 m, which equals 3.1 meters squared. 3.Divide the number of kilograms (your weight) by the meters squared number. In this example: 70 3.1 = 22.6. This is your BMI. What do the results mean? BMI charts are used to see if you are underweight, normal weight, overweight, or obese. The following guidelines will be used: Underweight: BMI less than 18.5. Normal weight: BMI between 18.5 and 24.9. Overweight: BMI between 25 and 29.9. Obese: BMI of 30 or above. BMI is a tool and cannot diagnose a condition. Talk with your health care provider about what your BMI means for you. Keep these notes in mind: Weight includes fat and muscle. Someone with a muscular build, such as an athlete, may have a BMI that is higher than 24.9. In cases like these, BMI is not a correct measure of body fat. If you have a BMI of 25 or higher, your provider may need to do more testing to find out if excess body fat is the cause. BMI is measured the same way for males and females. Females usually have more body fat than males of the same height and weight. Where to find more information For more information about BMI, including tools to quickly find your BMI, go to: Centers for Disease Control and Prevention: cdc.gov [place] Heart Association: heart.org National Heart, Lung, and Blood [place]: nhlbi.nih.gov This information is not intended to replace advice given to you by your health care provider. Make sure you discuss any questions you have with your health care provider. Document Revised: 12/05/2022 Document Reviewed: 11/28/2022 [employer] Patient Education 2023 [email or web address]. [facility] Femi 11-28-2023 Note Patient Education Preventive Care 65 Years and Older, Female Preventive care refers to lifestyle choices and visits with your health care provider that can promote health and wellness. Preventive care visits are also called wellness exams. What can I expect for my preventive care visit? Counseling Your health care provider may ask you questions about your: ? Medical history, including: ? Past medical problems. ? Family medical history. ? and menstrual history. ? History of falls. ? Current health, including: ? Memory and ability to understand (cognition). ? Emotional well-being. ? Home life and relationship well-being. ? Sexual activity and sexual health. ? Lifestyle, including: ? Alcohol, nicotine or tobacco, and drug use. ? Access to firearms. ? Diet, exercise, and sleep habits. ? Work and work environment. ? Sunscreen use. ? Safety issues such as seatbelt and bike helmet use. Physical exam Your health care provider will check your: ? Height and weight. These may be used to calculate your BMI (body mass index). BMI is a measurement that tells if you are at a healthy weight. ? Waist circumference. This measures the distance around your waistline. This measurement also tells if you are at a healthy weight and may help predict your risk of certain diseases, such as type 2 diabetes and high blood pressure. ? Heart rate and blood pressure. ? Body temperature. ? Skin for abnormal spots. What immunizations do I need? Vaccines are usually given at various ages, according to a schedule. Your health care provider will recommend vaccines for you based on your age, medical history, and lifestyle or other factors, such as travel or where you work. What tests do I need? Screening Your health care provider may recommend screening tests for certain conditions. This may include: ? Lipid and cholesterol levels. ? Hepatitis C test. ? Hepatitis B test. ? HIV (human immunodeficiency virus) test. ? STI (sexually transmitted infection) testing, if you are at risk. ? Lung cancer screening. ? Colorectal cancer screening. ? Diabetes screening. This is done by checking your blood sugar (glucose) after you have not eaten for a while (fasting). ? Mammogram. Talk with your health care provider about how often you should have regular mammograms. ? BRCA-related cancer screening. This may be done if you have a family history of breast, ovarian, tubal, or peritoneal cancers. ? Bone density scan. This is done to screen for osteoporosis. Talk with your health care provider about your test results, treatment options, and if necessary, the need for more tests. Follow these instructions at home: Eating and drinking ? Eat a diet that includes fresh fruits and vegetables, whole grains, lean protein, and low-fat dairy products. Limit your intake of foods with high amounts of sugar, saturated fats, and salt. ? Take vitamin and mineral supplements as recommended by your health care provider. ? Do not drink alcohol if your health care provider tells you not to drink. ? If you drink alcohol: ? Limit how much you have to 0?1 drink a day. ? Know how much alcohol is in your drink. In the U.S., one drink equals one 12 oz bottle of beer (355 mL), one 5 oz glass of wine (148 mL), or one 1? oz glass of hard liquor (44 mL). Lifestyle ? [place] your teeth every morning and night with fluoride toothpaste. Floss one time each day. ? Exercise for at least 30 minutes 5 or more days each week. ? Do not use any products that contain nicotine or tobacco. These products include cigarettes, chewing tobacco, and vaping devices, such as e-cigarettes. If you need help quitting, ask your health care provider. ? Do not use drugs. ? If you are sexually active, practice safe sex. Use a condom or other form of protection in order to prevent STIs. ? Take aspirin only as told by your health care provider. Make sure that you understand how much to take and what form to take. Work with your health care provider to find out whether it is safe and beneficial for you to take aspirin daily. ? Ask your health care provider if you need to take a cholesterol-lowering medicine (statin). ? Find healthy ways to manage stress, such as: ? Meditation, yoga, or listening to music. ? Journaling. ? Talking to a trusted person. ? Spending time with friends and family. ? Minimize exposure to UV radiation to reduce your risk of skin cancer. Safety ? Always wear your seat belt while driving or riding in a vehicle. ? Do not drive: ? If you have been drinking alcohol. Do not ride with someone who has been drinking. ? When you are tired or distracted. ? While texting. ? If you have been using any mind-altering substances or drugs. ? Wear a helmet and other protective equipment during sports activities. ? If you have firearms in your house, make sure you follow all gun (more content not included)... [facility] 11-28-2023 [facility] Discharg e instructions Follow Up Care 11/28/2023 11:35:04 With:Marcelo Call DO, [facility] Address: [address] [place] [address]- When:3 months Comments:3 MONTH DIABETIC CHECKUP [facility] 09-18-2023 Hospital Discharg e instructions Follow Up Care 09/18/2023 15:15:09 With:Marcelo Call DO, [facility] Address: [address] [place] [address]- When:3 months Comments:3 MONTH DIABETIC CHECKUP [facility] 08-01-2023 Hospital Discharg e instructions Follow Up Care 08/01/2023 10:01:14 With:Marcelo Call DO, [facility] Address: [address] [place] [address]- When:6 weeks Comments:6 WEEKS FOLLOWUP [facility] 07-01-2023 Hospital Discharg e instructions Patient Education [...] your hypoglycemia. Where to find more information [place] Diabetes Association: www.diabetes.org National [place] of Diabetes and Digestive and Kidney Diseases: [...] provider. Document Revised: 02/15/2021 Document Reviewed: 02/15/2021 [employer] Patient Education 2022 [email or web address]. Follow Up Care 06/27/2023 11:25:55 With:Marcelo Call DO, [facility] Address: [address] [phone]- When:4 weeks Comments:4 WEEKS FOLLOWUP [facility] 05-12-2023 Telephone encounter Note [facility] a [facility]U appt [place] [facility] [place] this patient need one? If so how when would you like me to schedule this appt? Yolie [phone] (production planner scheduler) [facility] 05-12-2023 Miscellaneous Notes [facility] a f/U appt scheduled from [place] [facility] [place] Does this patient need one? If so how when would you like me to schedule this appt? Yolie [phone] (production planner scheduler) documented in this encounter [facility] 04-10-2023 Note [id number] [facility] 03-20-2023 Note [id number]#[id number] [facility] 03-03-2023 Evaluation note Encounter Date Diagnosis [...] of diseases classified elsewhere (ICD-10 - B96.89) [facility] Other 11-16-2023 Evaluation + Plan noteExtracted from: Title:ANES Post-operative Note - General Author: Can Kaplan Jr., DO Date:02/13/23 Plan Transfer/Discharge: Transfer/Discharge Discharge when meets criteria ( From PACU to Ambulatory Surgery Unit, and To home ). Extracted from: Title:ANES Pre-operative Note - Adult Author:Can Chapa Jr., DO Date:02/13/23 Plan [place] [employer] Anesthesiologists (ASA) physical status classification: Class III. Anesthetic Preoperative Plan: Anesthesia General. Future Scheduled Tests Radiology* NM Gastric Emptying Study 04/10/22 [facility]11-16-2023 Hospital Discharge instructions Patient Education 02/13/2023 08:20:41 Post Op Patient Instructions - FT (Custom) (CUSTOM) 02/13/2023 07:23:07 Henri Rice - Hip Injection with Anesthesia (Custom) [place], [place] [facility] HIP INJECTION WITH ANESTHESIA [...] persistent vomiting. Joaquim Rice, DO [facility] [address] [place] [id number] Reviewed: [facility]11-06-2023 Evaluation note* Encounter Date Diagnosis Assessment Notes [...] of diseases classified elsewhere (ICD-10 - B96.89) [facility] Other 09-26-2023 Hospital Discharge instructions Patient Education 12/24/2022 17:59:10 [...] Follow these instructions at home: Medicines Take qsah-eji-[id number] and prescription medicines only as told by [...] and water are not available, use hand clinical research management associate. Keep all follow-up visits. This is important. [...] provider. Document Revised: 02/06/2022 Document Reviewed: 02/06/2022 [employer] Patient Education 2022 [email or web address]. Follow Up Care 12/19/2022 11:45:54 With:Joaquim Rice Address: [address] [place] [address]- Business (1) When: Unknown Comments:Call for followup appointment With:Ashish Chester Address: [address] [place] [address] Business (1) When:2 weeks Comments:Call for followup appointment With:Marcelo Call Address: [address] [facility] [address] [place] [address]- Business (1) When: Unknown [facility] [id number] Evaluation + Plan noteExtracted from: Title:APSO Note [...] Started patient on MiraLAX for constipation. Ordered: [facility] Hospital Care/Day Moderate 35 Minutes [id number] 2. Acute blood loss anemia (D62: Acute posthemorrhagic anemia) From recent admission. Hemoglobin stable. Continue on ferrous sulfate. Ordered: [facility] Hospital Care/Day Moderate 35 Minutes 94025 3. 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 Ordered: [facility] Hospital Care/Day Moderate 35 Minutes [id number] 4. HTN (hypertension) (I10: Essential (primary) hypertension) Blood pressure controlled. Continue on Coreg and lisinopril. Ordered: [facility] Hospital Care/Day Moderate 35 Minutes 74836 5. Hypothyroidism (E03.9: Hypothyroidism, unspecified) Stable. On Synthroid. [facility]position[facility]. I discussed the diagnosis and plan of care with the patient at the bedside. Moderate level of MDM based on addressing above issues. This documentation was transcribed using voice recognition software. Several attempts were made to ensure accuracy. However inadvertent computerized dress fitter errors may be present. Soni Padgett. Hospitalist. Ordered: [facility] Hospital Care/Day Moderate 35 Minutes [id number] Orders: bisacodyl, 10 mg = 2 tab(s), Tab-EC, Oral, Once, Stop date 12/24/22 10:00:00 EDT, Routine, Start date 12/24/22 10:00:00 EDT, 12/24/22 9:10:00 EDT polyethylene glycol 3350, 17 gram = 1 EA, Powder-Recon, Oral, Daily, Routine, Start date 12/24/22 10:00:00 EDT, 12/24/22 10:00:00 EDT Referral to [facility] Addendum by Sarah PADGETT MD on December [...] PICC line. Infectious disease consult pending. Ordered: [facility] Hospital Care/Day Moderate 35 Minutes [id number] 2. Acute blood loss anemia (D62: Acute posthemorrhagic anemia) From recent admission. Hemoglobin above 7.0. No need for blood transfusion. Continue on ferrous sulfate. Ordered: [facility] Hospital Care/Day Moderate 35 Minutes [id number] 3. 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 Ordered: [facility] Hospital Care/Day Moderate 35 Minutes 72357 4. HTN (hypertension) (I10: Essential (primary) hypertension) Blood pressure fairly controlled. Continue on Coreg, lisinopril. Ordered: [facility] Hospital Care/Day Moderate 35 Minutes 48488 5. Hypothyroidism (E03.9: Hypothyroidism, unspecified) Continue Synthroid. Disposition: Pending final wound culture results and final infectious disease recommendations. I discussed the diagnosis and plan of care with the patient at the bedside. Moderate level of MDM based on addressing above issues. This documentation was transcribed using voice recognition software. Several attempts were made to ensure accuracy. However inadvertent computerized dress fitter errors may be present. Soni Padgett. Hospitalist. Ordered: [facility] Hospital Care/Day Moderate 35 Minutes [id number] Extracted from: Title:Progress/SOAP Note Author:Rosalia Grossman DO [...] Ordered: Initial Hospital Care/Day Moderate 55 Minutes 86044 2. 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 HTN (hypertension) (I10: Essential (primary) hypertension) On lisinopril and carvedilol from home; we also resumed her atorvastatin Ordered: Initial Hospital Care/Day Moderate 55 Minutes [id number] PLAN: 1. Patient is on daptomycin 2. [...] Author:Cruzito em MD, Ahmad F Date:12/20/22 Plan [place] [employer] Anesthesiologists (ASA) physical status classification: [...] Tests Radiology* NM Gastric Emptying Study 04/10/22 [facility]09-10-2023 Hospital Discharge instructions Follow Up Care 12/08/2022 11:51:54 With:Emely Mccall DO [facility] Address: When:Within 1 Month(s) [facility] 09-01-2023 Evaluation + Plan noteExtracted from: Title:Discharge Note Author:FALLON BANKS, Soni Almaguer ate:11/29/22 Stable. Discharge To, Anticipated II - Senior Living Unit Discharged to - Home independently Discharge [...] if needed [address] [place] [address]- Business (1) Additional Instructions: Joaquim Rice Within 2 to 4 weeks [address] [place] [address]- Business (1) Additional Instructions: Call for followup [...] physical therapy pending precertification to SNF. Ordered: [facility] Hospital Care/Day Moderate 35 Minutes 56182 2. Fall (W19.XXXA: Unspecified fall, initial encounter) Mechanical fall. Stable. Ordered: [facility] Hospital Care/Day Moderate 35 Minutes [id number] 3. Acute blood loss anemia (D62: Acute posthemorrhagic anemia) Acute blood loss anemia in the perioperative period. Patient received 1 unit of packed red blood cell transfusion and hemoglobin is stable at around 8.6. She also received IV iron infusions. Continue on oral iron. Ordered: [facility] Hospital Care/Day Moderate 35 Minutes [id number] 4. Hypertension (I10: Essential (primary) hypertension) Blood pressure fairly controlled. Continue on Coreg and lisinopril. Ordered: [facility] Hospital Care/Day Moderate 35 Minutes [id number] 5. Hyperlipidemia (E78.5: Hyperlipidemia, unspecified) Stable. On Lipitor. Ordered: [facility] Hospital Care/Day Moderate 35 Minutes [id number] 6. Diabetes (E11.9: Type 2 diabetes mellitus [...] for prophylactic measures, unspecified) Lovenox. Disposition: [facility] pending precertification. I discussed the diagnosis and plan of care with the patient at the bedside. Moderate level of MDM based on addressing above issues. This documentation was transcribed using voice recognition software. Several attempts were made to ensure accuracy. However inadvertent computerized dress fitter errors may be present. Soni Padgett. Hospitalist. Orders: aspirin, 162 mg = 2 tab(s), Oral, Daily, X 30 day(s), # 60 tab(s), Refills(s) 0 Extracted from: Title:APSO Note Author:Soni PADGETT MD Date: 67-year-old female with history of hypertension, [...] physical therapy pending precertification to SNF. Ordered: [facility] Hospital Care/Day Moderate 35 Minutes 41911 2. Fall (W19.XXXA: Unspecified fall, initial encounter) Mechanical fall. Supportive care. Ordered: [facility] Hospital Care/Day Moderate 35 Minutes [id number] 3. Acute blood loss anemia (D62: Acute posthemorrhagic anemia) Acute blood loss anemia in the perioperative period Status post 1 unit of packed red blood cell transfusion. Hemoglobin stable at 8.6. Patient received IV iron infusions. Continue on oral iron. Ordered: [facility] Hospital Care/Day Moderate 35 Minutes 45705 4. Hypertension (I10: Essential (primary) hypertension) Blood pressure fairly controlled. Continue on Coreg. We will resume lisinopril at discharge with hold parameters. Ordered: [facility] Hospital Care/Day Moderate 35 Minutes 55803 5. Hyperlipidemia (E78.5: Hyperlipidemia, unspecified) Stable. On [...] discharge as per orthopedic surgeon. Disposition: To penitentiary facility when arranged pending precertification. I discussed the diagnosis and plan of care with the patient at the bedside. Moderate level of MDM based on addressing above issues. This documentation was transcribed using voice recognition software. Several attempts were made to ensure accuracy. However inadvertent computerized dress fitter errors may be present. Soni Padgett. Hospitalist. [...] 120, # 90 tab(s), Refills(s) 0, Pharmacy: [facility], 162, cm, 01/31/22 21:16:00 EDT, Height/Length Dosing, 70.4, kg, 01/31/22 21:16:00 EDT, Weight Dosing UA With Cult Reflex Extracted from: Title:APSO Note Author:Sarah PADGETT MDfo Date: Called [id number] [place] female with history of hypertension, [...] physical therapy pending precertification to SNF. Ordered: [facility] Hospital Care/Day Moderate 35 Minutes [id number] 2. Fall (W19.XXXA: Unspecified fall, initial encounter) Mechanical fall. Supportive care. Ordered: [facility] Hospital Care/Day Moderate 35 Minutes [id number] 3. Acute blood loss anemia (D62: Acute posthemorrhagic anemia) Acute blood loss anemia in the perioperative period Status post 1 unit of packed red blood cell transfusion. Patient received IV iron infusions. Continue on oral iron. Ordered: [facility] Hospital Care/Day Moderate 35 Minutes [id number] 4. Hypertension (I10: Essential (primary) hypertension) Blood pressure fairly controlled. Continue on Coreg. Lisinopril on hold. Ordered: [facility] Hospital Care/Day Moderate 35 Minutes [id number] 5. Hyperlipidemia (E78.5: Hyperlipidemia, unspecified) Stable. On Lipitor. Ordered: [facility] Hospital Care/Day Moderate 35 Minutes 82015 6. Diabetes (E11.9: Type 2 diabetes mellitus [...] for prophylactic measures, unspecified) Lovenox. Disposition: To [facility]itentiary facility when arranged. I discussed the diagnosis and plan of care with the patient at the bedside. Moderate level of MDM based on addressing above issues. This documentation was transcribed using voice recognition software. Several attempts were made to ensure accuracy. However inadvertent computerized dress fitter errors may be present. Mbanefo Ojukwu. Hospitalist. Extracted from: Title:APSO Note Author:Janny MANZANO [...] ). Extracted from: Title:APSO Note Author:DANISH JOSE AJnany Date:11/25/22 PLAN: 1. Closed hip fracture (S72.009A: [...] Op - Adult General Author:Cruzito em MD, Ahramona F Date:11/25/22 Plan [place] [employer] (ASA) physical status classification: [...] Scheduled Provider:José MENESES MD Location:Extended Care Appointment Type:[facility] Future Scheduled Tests Radiology* [place] Gastric Emptying Study 04/10/22 [facility]08-31-2023 Hospital Discharge instructions Patient Education 11/28/2022 13:25:57 [...] your health care provider. General instructions Take dlos-nat-stcokch and prescription medicines only as told by [...] provider. Document Revised: 11/17/2020 Document Reviewed: 11/17/2020 [employer] Patient Education 2021 [employer]. Follow Up Care 11/24/2022 00:36:57 With:Marcelo Link Address: [facility] [address] [facility] [place] [address]- Business (1) When: only if needed With:Joaquim Rice Address: [address] [place] [address]- Business (1) When:2 to 4 weeks Comments:Call for followup appointment [facility]07-05-2023 Evaluation + Plan noteExtracted from: Title:ED Note [...] Tests Radiology* [place] Gastric Emptying Study 04/10/22 [facility]06-07-2023 Hospital Discharge instructions Patient Education 09/04/2022 21:51:36 [...] Follow these instructions at home: Medicines Take frtk-ram-oqnlzym and prescription medicines only as told by your health care provider. Ask your health care provider if the medicine prescribed to you: ?Requires you to avoid driving or using heavy machinery. ?Can cause constipation. You may need to take these actions to prevent or treat constipation: ?Drink enough fluid to keep your urine pale yellow. ?Take bpeg-dfa-kfgedtn or prescription medicines. ?Eat foods that are [...] provider. Document Revised: 11/24/2019 Document Reviewed: 11/24/2019 [employer] Patient Education 2022 [employer]. 09/04/2022 21:51:36 Head Injury, Adult Head Injury, [...] Ask your health care provider for a fqza-dp-xxcd plan for gradually returning to activities. Ask [...] your friends, family, a trusted colleague, and local area network administrator about your injury, symptoms, and restrictions. Have them watch for any new or worsening problems. General instructions Take xeue-kld-okdhpsw and prescription medicines only as told by [...] provider. Document Revised: 01/28/2020 Document Reviewed: 01/28/2020 [employer] Patient Education 2022 [employer]. Follow Up Care 09/04/2022 20:22:40 With:Marcelo Link Address: [address] [place] [address]- Business (1) When:Within 3 Day(s) [facility]06-07-2023 Hospital Discharge instructions Patient Education 09/04/2022 19:32:42 RICE Therapy for Routine Care of Injuries, Hwdp-zw-Zdrv RICE Therapy for Routine Care of Injuries [...] provider. Document Revised: 01/04/2021 Document Reviewed: 01/04/2021 [employer] Patient Education 2022 [employer]. 09/04/2022 19:32:42 Contusion, Nhdp-rz-Xaub Contusion A contusion is a deep bruise. [...] sitting or lying down. General instructions Take yzkd-tof-oogyjpr and prescription medicines only as told by [...] is also called RICE. Youmay be given mrjm-wls-rxslqfh medicines for pain. Contact a doctor if [...] provider. Document Revised: 01/10/2022 Document Reviewed: 01/10/2022 [employer] Patient Education 2022 [employer]. Follow Up Care 09/04/2022 15:05:18 With:Marcelo Link Address: [address] [place] [address]- [facility] (1) When:09/07/2022 18:53:36 Comments:Follow-up with your primary care provider in 3 to 5 days. If symptoms worsen, do not improve, or new symptoms arise please report back to emergency department for further evaluation. [facility]06-07-2023 Evaluation + Plan noteExtracted from: Title:ED Note Author:Hari Martinez DO Date :09/04/22 Closed head injury Cervical strain Future Scheduled Tests Radiology* [place] Gastric Emptying Study 04/10/22 [facility]05-12-2023 Hospital Discharge instructions Patient Education 08/09/2022 14:12:59 [...] Ask your health care provider for a fshv-iu-qdcp plan for gradually returning to activities. Ask [...] your friends, family, a trusted colleague, and local area network administrator about your injury, symptoms, and restrictions. Have them watch for any new or worsening problems. General instructions Take sjie-yib-cwzwxek and prescription medicines only as told by [...] provider. Document Revised: 01/28/2020 Document Reviewed: 01/28/2020 [employer] Patient Education 2022 [employer]. 08/09/2022 14:12:59 Fall Prevention in Hospitals, Adult [...] balance. Talk with a physical therapist or emr trainer if recommended by your health care [...] provider. Document Revised: 10/18/2020 Document Reviewed: 10/18/2020 [employer] Patient Education 2022 [employer]. Follow Up Care 08/09/2022 12:15:41 With:Marcelo Link Address: [address] [place] [address]- Business (1) When:08/12/2022 14:11:58 Comments:Call the office [...] sleep, or any new or worsening symptoms. [facility]05-12-2023 Evaluation + Plan noteExtracted from: Title:ED Note [...] Tests Radiology* [place] Gastric Emptying Study 04/10/22 [facility]04-21-2023 Hospital Discharge instructions Patient Education 07/18/2022 23:33:46 [...] to strengthen the arm. General instructions Take wkwz-ecx-spnudmo and prescription medicines only as told by [...] provider. Document Revised: 11/30/2021 Document Reviewed: 11/30/2021 [employer] Patient Education 2022 [employer]. 07/18/2022 23:33:46 Hip Pain Hip Pain The [...] activities that cause pain. General instructions Take zlva-vbj-ocxxxvf and prescription medicines only as told by [...] provider. Document Revised: 08/02/2019 Document Reviewed: 08/02/2019 [employer] Patient Education 2022 [employer]. 07/18/2022 23:33:46 Fall Prevention in the Home, Adult, Sggf-as-Kgxn Fall Prevention in the Home, Adult Falls [...] Keep items that you use often in suzv-od-wnpcy places. Lower the shelves around your home [...] of the way. Do not use floor dutch or wax that makes floors slippery. What [...] more information Centers for Disease Control and PreventionBEATRIZ: www.cdc.gov National [place] on Aging: www.britany.nih.gov Contact a doctor if: [...] provider. Document Revised: 12/17/2021 Document Reviewed: 10/18/2020 [employer] Patient Education 2022 [employer]. Follow Up Care 07/18/2022 22:27:53 With:Marcelo Link Address: [address] [place] [address]- Business (1) When:07/21/2022 Comments:Contact ibuprofen, Tylenol at home as needed for pain every 6 hours. Please follow-up with your primary care doctor in the next 2 to 3 days. Please return to the ED for any new or worsening symptoms or [facility]04-20-2023 History of Present illness Narrative* Naseem Hardy MD - 07/18/2022 4:32 PM EDT Images from the original note were not included. EMERGENCY TRIAGE, TREAT AND TRANSPORT (ET3) DOCUMENTATION OF TELEHEALTH VISIT Date / Time: 07/18/2022 / 1615 Name: Fartun Myers NOTE: CORRECT SPELLING MAY BE ZACH : 1955 SSN: (Not on file) EMS Agency: [facility] [x] Verbal consent obtained [] [...] by: Naseem Hardy MD documented in this [id number] Evaluation + Plan note Extracted from: Title:ED [...] Shoulder Complete Left Future Scheduled Tests Radiology* [place] Gastric Emptying Study 04/10/22 [facility]01-11-2023 Evaluation + Plan note Future Scheduled Tests Radiology* [place] Gastric Emptying Study 04/10/22 [facility]01-04-2023 Hospital Discharge instructions Patient Education 04/03/2022 18:32:58 [...] sitting or lying down. General instructions Take rbsp-rhg-gaaucol and prescription medicines only as told by [...] compression, and elevation. You may be given vgcm-ivh-pnfodkl medicines for pain. Contact a health care [...] 12/25/2005 Document Revised: 11/05/2018 Document Reviewed: 11/05/2018 [employer] Patient Education 2020 [employer]music. Follow Up Care 04/03/2022 16:34:06 With:Marcelo Link Address: [address] [place] [address]- Business (1) When:04/06/2022 18:32:44 Comments:Call the office [...] you develop any new or worsening symptoms. [facility]01-04-2023 Evaluation + Plan noteExtracted from: Title:ED Note [...] Date:04/10/2022 10:15:00 AM Scheduled Provider:London DIAZ MD [facility] [place] Type:BAD Follow Up [facility]01-03-2023 Evaluation + Plan noteExtracted from: Title:ED Note Author:Brady Marinelli DO Date:04/02 Contusion of hip (S70.00XA: Contusion of unspecified hip, initial encounter) Elbow contusion (S50.00XA: Contusion of unspecified elbow, initial encounter) Orders: XR Elbow 3+ Views Left XR Hip 2-3 Views Left + Pelvis Future Appointments Appointment Date:04/10/2022 10:15:00 AM Scheduled Provider:London DIAZ MD Location[place] Type[facility] Follow Up [facility]01-03-2023 Hospital Discharge instructions Patient Education 04/02/2022 11:03:46 [...] your health care provider. General instructions Take pbqh-alo-fgpzzad and prescription medicines only as told by your health care provider. Ask your health care provider if the medicine prescribed to you: ?Requires you to avoid driving or using heavy machinery. ?Can cause constipation. You may need to take actions to prevent or treat constipation, such as: ?Drink enough fluid to keep your urine pale yellow. ?Take gbws-spb-hshewiw or prescription medicines. ?Eat foods that are [...] 11/05/2018 Document Revised: 07/08/2019 Document Reviewed: 11/05/2018 [employer] Patient Education 2020 [employer]. 04/02/2022 11:03:46 Elbow Contusion Elbow Contusion An [...] sling or splint to support your injury. Jpyj-yui-lztspvf anti-inflammatory medicines, such as ibuprofen, for pain control. Eumla-xg-aemmxb exercises. Follow these instructions at home: RICE [...] bath or a shower. General instructions Take mkhl-bas-qrneuyv and prescription medicines only as told by your health care provider. Return to your normal activities as told by your health care provider. Ask your health care provider what activities are safe for you. Do ohlzf-sv-agqoaz exercises only as told by your health [...] 02/23/2007 Document Revised: 09/17/2018 Document Reviewed: 09/17/2018 [employer] Patient Education 2020 [employer]. Follow Up Care 04/02/2022 09:43:43 With:Marcelo Link Address: [address] [place] [address]- Business (1) When:Within 3 Day(s) [facility]12-14-2022 Hospital Discharge instructions Patient Education 03/13/2022 19:21:56 [...] home: Managing pain, stiffness, and swelling Take lotm-xaf-mxiqeoe and prescription medicines only as told by [...] as fried and sweet foods. ?Take an pyag-cjn-hqjsags or prescription medicine for constipation. Contact a [...] 12/10/2001 Document Revised: 05/13/2019 Document Reviewed: 04/06/2018 [employer] Patient Education 2020 [employer]. 03/13/2022 19:21:56 Abdominal Pain, Adult, Wwxb-za-Ozps Abdominal Pain, Adult Many things can cause belly (abdominal) pain. Most times, belly pain is not dangerous. Many cases of belly pain can be watched and treated at home. Sometimes, though, belly pain is serious. Your doctor will try to find the cause of your belly pain. Follow these instructions at home: Medicines Take mdxi-ncr-kjkofhg and prescription medicines only as told by [...] your belly pain for any changes. Take pljs-qim-nmhqtyt and prescription medicines only as told by [...] 09/02/2008 Document Revised: 07/26/2019 Document Reviewed: 07/26/2019 [email or web address] Patient Education 2020 [employer]itmusic. Follow Up Care 03/13/2022 16:37:17 With:Marcelo Link Address: [address] [place] [address]- Business (1) When:03/16/2022 19:05:35 Comments:Follow-up with your primary care provider in 3 to 5 days. If symptoms worsen, do not improve, or new symptoms arise please report back to emergency department for further evaluation. [facility]11-12-2022 Hospital Discharge instructions Patient Education 02/08/2022 22:13:00 [...] Follow these instructions at home: Medicines Take hdex-lvq-qfhlbod and prescription medicines only as told by [...] Watch your condition for any changes. Take xurs-tdv-mrmthkq and prescription medicines only as told by [...] 12/25/2005 Document Revised: 07/26/2019 Document Reviewed: 07/26/2019 [email or web address] Patient Education 2019 [employer] Follow Up Care 02/08/2022 20:29:45 With:Marcelo Call Address: [address] [facility] [place] [address] [facility] (1) When:02/11/2022 Comments:Attend scheduled follow-up with Dr. Call next week to discuss management of ongoing chronic pain and other symptoms [facility]11-11-2022 Evaluation + Plan noteExtracted from: Title:ED Note Author:Delbert Estrada PA-C Micheal e:02/08/22 Abdominal pain (R10.9: Unspe cified abdominal pain) Nausea (R11.0: Nausea) Orders: Automated Diff Basic Metabolic Panel Beta-hydroxybutyrate CBC w/ Auto Diff eGFR Hepatic Function Panel UA With Cult Reflex XR Abdomen 1 View Future Appointments Appointment Date:04/10/2022 10:15:00 AM Scheduled Provider:London DIAZ MD Location[place] Follow Up [facility]11-06-2022 Evaluation + Plan noteExtracted from: Title:ED Note Author:Vadim Gusman MD Date: 1. Medication side effect (T 88.7XXA: Unspecified adverse effect of drug or medicament, initial encounter) Orders: Automated Diff Basic Metabolic Panel CBC w/ Auto Diff eGFR Extra Blue Tube UA With Cult Reflex Future Appointments Appointment Date:04/10/2022 10:15:00 AM Scheduled Provider:London DIAZ MD Location[place] Type:[facility] Follow Up [facility]11-06-2022 Hospital Discharge instructions Patient Education 02/03/2022 05:00:01 Accidental Drug Poisoning, Adult Accidental Drug Poisoning, Adult Accidental drug poisoning happens when a person accidentally takes too much of a substance, such asa prescription medicine, an ouxj-ouz-ybkdbcf medicine, a vitamin, a supplement, or an [...] medicines. Cocaine. Heroin. Multivitamins that contain iron. Vdbt-cet-rfrmjns cold and cough medicines. What increases the [...] Follow these instructions at home: Medicines Take bbur-lnq-qsiwvim and prescription medicines only as told by your health care provider. Before taking a new medicine, ask your health care provider whether the medicine: ?May cause side effects. ?Might react with other medicines. Keep a list of all the medicines that you take, including ijrb-gns-sftynxl medicines, vitamins, supplements, and herbs. Bring this [...] your cell phone. The hotline of the [place] [employer] is . [...] a substance, such asa prescription medicine, an meaq-elp-ytjqojl medicine, a vitamin, a supplement, or an [...] 05/31/2005 Document Revised: 02/27/2018 Document Reviewed: 02/16/2018 [employer] Patient Education [employer] Follow Up Care 02/03/2022 01:08:11 With:Marcelo Link Address: [address] [facility] [place] [address]- Business (1) When:02/06/2022 only if needed [facility]11-05-2022 Evaluation + Plan noteExtracted from: Title:Discharge Note Author:DERREK BANKS, Denzel Micheal e:02/02/22 Good Discharge To, Anticipated II - Home with home health Discharged to - Other: states she has a nurse who will be coming in to help with medications and 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 Dr. Kilo Harris Hospitalist at [facility] Extracted from: Title:ED Note Author:Ty Manrique [...] Date:04/10/2022 10:15:00 AM Scheduled Provider:London DIAZ MD Location[place] Type:[facility] Follow Up Diagnostic Tests Pending * Blood Gas Randall 01/31/22 [facility]11-05-2022 Hospital Discharge instructions Patient Education 02/02/2022 11:03:37 [...] Follow these instructions at home: Medicines Take ucod-nop-xciahay and prescription medicines only as told by [...] is important. Where to find more information [employer]: www.aakp.org National Kidney Foundation: www.kidney.org [employer]: www.akfinc.org [facility]: [...] 09/30/2011 Document Revised: 02/27/2018 Document Reviewed: 03/07/2017 [employer] Patient Education 2020 [employer]. 02/02/2022 11:03:37 Acute Kidney Injury, Adult Acute [...] Follow these instructions at home: Medicines Take npvt-wjq-xcgajnz and prescription medicines only as told by [...] is important. Where to find more information [place] [employer]: www.aakp.org National Kidney Foundation: www.kidney.org [employer]: www.akfinc.org [facility]: [...] 09/30/2011 Document Revised: 02/27/2018 Document Reviewed: 03/07/2017 [employer] Patient Education 2020 [employer]. Follow Up Care 01/31/2022 21:09:18 With:Marcelo Call [facility] [address] [place] [address] [facility] (1) When:02/08/2022 10:15:00 [facility]11-02-2022 Evaluation + Plan noteExtracted from: Title:Discharge Note Author:DERREK ABNKS, Denzel Micheal e:01/30/22 good Discharge To, Anticipated II [...] Tab, 40 mg= 1 tab(s), Oral, Daily Milan 325 mg-5 mg oral tablet, 1 tab(s), Oral, BID, PRN Paxil 10 mg Tab, 10 mg= 1 tab(s), Oral, As Directed rosuvastatin 20 mg Tab, 20 mg= 1 tab(s), Oral, Daily traZODONE 100 mg Tab, 200 mg= 2 tab(s), Oral, Once a day (at bedtime) Trulicity Pen 4.5 mg/0.5 mL subcutaneous solution, 4.5 mg, SubCutaneous, qWeek With When Contact Information NOMI WETZEL [address] [place] [address]- Business (1) Additional Instructions: Marcelo Link In 0 days [address] [place] [address]- Business (1) Additional Instructions: Form - Daily [...] Encounter for prophylactic measures, unspecified) Lovenox daily [facility] Hospital Discharge instructions Patient Education 01/30/2022 09:29:25 [...] 02/18/2005 Document Revised: 12/29/2018 Document Reviewed: 12/13/2016 [employer] Patient Education 2020 [employer]. 01/30/2022 09:29:23 Diabetic Ketoacidosis Diabetic Ketoacidosis Diabetic [...] sugar-free liquids, such as water. Medicines Take diuf-pms-xpdnyds and prescription medicines only as told by [...] 03/14/2001 Document Revised: 05/02/2017 Document Reviewed: 04/21/2017 [employer] Patient Education 2020 [employer]. 01/30/2022 09:29:22 Diabetes Mellitus and Sick Day [...] lot of sugar. Take medicines as directed Txrx-kvpw-evn-counter and prescription medicines only as told by [...] 03/19/2004 Document Revised: 12/13/2016 Document Reviewed: 12/13/2016 [employer] Patient Education 2020 [employer] [place] [employer] 01/30/2022 09:29:20 Diabetes Mellitus and Nutrition, Adult [...] that you work with a diet and nutrition services manager (dietitian) tomake a meal plan that is [...] care provider. Work with a counselor or healthcare educator to identify strategies to manage stress and any emotional and social challenges. Questions to ask a health care provider Do I need to meet with a healthcare educator? Do I need to meet with a dietitian? What number can I call if I have questions? When are the best times to check my blood glucose? Where to find more information: [place] [employer]: diabetes.org Academy of Nutrition and Dietetics: www.eatright.org National [place] of Diabetes and Digestive and Kidney Diseases (NIH): www.niddk.nih.gov Summary A healthy meal plan will help you control your blood glucose and maintain a healthy lifestyle. Working with a diet and nutrition services manager (dietitian) can help you make a meal [...] 12/12/2005 Document Revised: 02/27/2018 Document Reviewed: 04/21/2017 [employer] Patient Education 2020 [employer]. 01/30/2022 09:29:19 Diabetes Mellitus and Foot Care Diabetes Mellitus and Foot Care Foot care is an important part of your health, especially when you have diabetes. Diabetes may cause you to have problems because of poor blood flow (circulation) to your feet and legs, which can cause your skin to: Become thinner and spray drier operator helper. Break more easily. Heal more slowly. Peel [...] 03/14/2001 Document Revised: 04/29/2018 Document Reviewed: 04/18/2017 [employer] Patient Education 2020 [employer]. 01/30/2022 09:29:18 Diabetes Mellitus and Exercise Diabetes [...] plan? Your health care provider or certified alcohol and drug counselor can help you make a plan for [...] stress. Your health care provider or certified alcohol and drug counselor can help you make a plan for [...] 06/06/2004 Document Revised: 2017 Document Reviewed: 08/26/2016 [employer] Patient Education 2020 [employer]. Follow Up Care 01/28/2022 11:57:18 With:NOMI WETZEL Address: [address], [address] [place] [address]- Business (1) When:02/05/2022 09:40:00 Comments:For DKA & Renal Failure With:Marcelo Link Address: [address], [address] [place] [address]- Business (1) When:02/08/2022 10:15:00 [facility]10[facility]30[facility]2022 Hospital Discharge instructions Patient Education 01/27/2022 18:13:28 [...] oral rehydration solution (ORS). This is an eele-dlk-jnuskdx medicine that helps return your body to [...] drinks, sports drinks, and soda. Eat bland, xwea-bk-qrizgb foods in small amounts as you are able. These foods include bananas, applesauce, rice, lean meats, toast, and crackers. Avoid alcohol. Avoid spicy or fatty foods. Medicines Take wbbc-sla-epaylrv and prescription medicines only as told by your health care provider. If you were prescribed an antibiotic medicine, take it as told by your health care provider. Do notstop using the antibiotic even if you start to feel better. General instructions Wash your hands often using soap and water. If soap and water are not available, use a hand clinical research management associate. Others in the household should wash their [...] soap and water are not available, usehand clinical research management associate. Contact a health care provider if your diarrhea gets worse or you have new symptoms. Get help right away if you have signs of dehydration. This information is not intended to replace advice given to you by your health care provider. Make sure you discuss any questions you have with your health care provider. Document Released: 03/07/2003 Document Revised: 08/03/2019 Document Reviewed: 08/21/2018 [employer] Patient Education 2020 [employer]. 01/27/2022 18:13:28 Nausea and Vomiting, Adult Nausea [...] water added (diluted fruit juice). Eat bland, ygqq-zy-kkidaj foods in small amounts as you are able. These foods include bananas, applesauce, rice, lean meats, toast, and crackers. Avoid fluids that contain a lot of sugar or caffeine, such as energy drinks, sports drinks, and soda. Avoid alcohol. Avoid spicy or fatty foods. General instructions Take wqcl-qqx-bfjnhaj and prescription medicines only as told by your health care provider. Drink enough fluid to keep your urine pale yellow. Wash your hands often using soap and water. If soap and water are not available, use hand clinical research management associate. Make sure that all people in your [...] eating and drinking to prevent dehydration. Take maqa-ral-mkvjtku and prescription medicines only as told by [...] 03/17/2006 Document Revised: 07/09/2019 Document Reviewed: 08/25/2018 [employer] Patient Education 2020 [employer]. 01/27/2022 18:13:28 Abdominal Pain, Adult Abdominal Pain, [...] Follow these instructions at home: Medicines Take gkwg-vyg-edqcxhj and prescription medicines only as told by [...] Watch your condition for any changes. Take dpva-gbt-fuwudiq and prescription medicines only as told by [...] 12/25/2005 Document Revised: 07/26/2019 Document Reviewed: 07/26/2019 [employer] Patient Education 2020 [employer]. Follow Up Care 01/27/2022 14:43:33 With:London DIAZ Address: [address] [place] [address] Business (1) When:01/30/2022 17:32:45 Comments:Return to the emergency room if your pain gets worse, you develop fever, vomiting recurs or any newsymptoms. With:Marcelo Call Address: [address] [place] [address]- Business (1) When:Within 3 Day(s) [facility]10-30-2022 Evaluation + Plan noteExtracted from: Title:ED Note [...] PT & PTT UA With Cult Reflex [facility]08-20-2022 Hospital Discharge instructions Patient Education 11/17/2021 20:23:44 Hypoglycemia, Zjei-pq-Iqet Hypoglycemia Hypoglycemia is when the sugar (glucose) [...] these instructions at home: General instructions Take crdj-rse-puvluax and prescription medicines only as told by [...] 06/11/2010 Document Revised: 07/08/2019 Document Reviewed: 04/19/2016 [employer] Patient Education 2020 [employer]. Follow Up Care 11/17/2021 17:29:57 With:Marcelo Link Address: [address] [place] [address]- Business (1) When:11/20/2021 20:12:53 [facility] No data available for this section [facility] Future Appointments Appointment Date:11/13/2021 02:45:00 PM Scheduled Provider: [facility] Type:PT Eval (FT) [facility] Future Appointments Appointment Date:04/10/2022 10:15:00 AM Scheduled Provider:London DIAZ MD Location[facility] App[facility]ment Type:BADH [facility] Future Appointments Appointment Date:06/14/2022 12:30:00 PM Scheduled Provider: Location:[facility] Appointment Type:Surgery FT Future Scheduled Tests Radiology* NM Gastric Emptying Study 04/10/22 [facility] Evaluation + Plan note Future Appointments Appointment Date:08/01/2023 09:40:00 AM Scheduled Provider:Marcelo Call DO Location:[facility] Appointment Type:[facility] Evaluation + Plan note Future Appointments Appointment Date:08/07/2023 11:40:00 AM Scheduled Provider:Marcelo Call DO Location:[facility] Appointment Type:[facility] Evaluation + Plan note Future Appointments Appointment Date:09/18/2023 02:40:00 PM Scheduled Provider:Marcelo Call DO Location:[facility] Appointment Type:[facility] Evaluation + Plan note Future Appointments Appointment Date:11/21/2023 09:30:00 AM Scheduled Provider: Location:[facility] Appointment Type:FM Medicare Wellness Subsequent Appointment Date:11/21/2023 10:40:00 AM Scheduled Provider:Marcelo Call DO Location:[facility] Appointment Type:[facility] Evaluation + Plan note Future Appointments Appointment Date:02/23/2024 10:00:00 AM Scheduled Provider:Marcelo Call DO Location:[facility] Appointment Type:FM Open Appointment Date:11/11/2024 11:00:00 AM Scheduled Provider: Location:[facility] Appointment Type:FM Medicare Wellness Subsequent [facility] Evaluation + Plan note Future Appointments Appointment Date:02/23/2024 10:00:00 AM Scheduled Provider:Marcelo Call DO Location:[facility] Appointment Type: Open Appointment Date:11/11/2024 11:00:00 AM Scheduled Provider: Location:[facility] Appointment Type: Medicare Wellness Subsequent Future Scheduled Tests Laboratory* UA with Cult Rflx 12/26/23 Radiology* XR Knee Complete 4+ Views Right 12/30/23 * XR Hip 2-3 Views Right 12/30/23 [facility] Evaluation + Plan note Future Appointments Appointment Date:02/23/2024 10:00:00 AM Scheduled Provider:Marcelo Call DO Location:[facility] Appointment Type: Open Appointment Date:11/11/2024 11:00:00 AM Scheduled Provider: Location:[facility] Appointment Type: Medicare Wellness Subsequent Diagnostic Tests Pending * Urine Culture 12/30/23 Future Scheduled Tests Laboratory* UA with Cult Rflx 12/26/23 Radiology* XR Knee Complete 4+ Views Right 12/30/23 * XR Hip 2-3 Views Right 12/30/23 [facility] evaluation + Plan note Future Appointments Appointment Date:02/23/2024 10:00:00 AM Scheduled Provider:Marcelo Call DO Location:[facility] Appointment Type: Open Appointment Date:11/11/2024 11:00:00 AM Scheduled Provider: Location:[facility] Appointment Type: Medicare Wellness Subsequent Future Scheduled Tests Laboratory* UA with Cult Rflx 12/26/23 [facility] evaluation + Plan note Future Appointments Appointment Date:06/08/2024 10:40:00 AM Scheduled Provider:Marcelo Call DO Location:[facility] Appointment Type: Open Appointment Date:11/11/2024 11:00:00 AM Scheduled Provider: Location:[facility] Appointment Type: Medicare Wellness Subsequent Future Scheduled Tests Laboratory* UA with Cult Rflx 12/26/23 [facility] Evaluation note* Diagnosis Anxiety- Primary Anxiety state, unspecified documented in this encounter [facility] [employer] Other History general Narrative - Reported* Type Description Date Medical History DEPRESSION Medical History HTN Medical History ARTHRITIS Medical History DIABETES Medical History NEUROPATHY Surgical History BILATERAL KNEE REPLACEMENT Surgical History LEFT HIP Surgical History LEFT THUMB Surgical History HYSTERECTOMY Surgical History GALLBLADDER Surgical History TUMOR LEFT SHOULDER Hospitalization History SEE ABOVE [facility] [employer] Other Hospital Discharge instructions No data available for this section [facility] No data available for this section [facility] Summary Purpose Family History No Family History [...] content) Personnel Name: Marcelo Call DO Address: Address: [address] [address] Name: Vannessa Kaur Name: Sienna Fernández LPN Name: Efrem Matos Name: Matthieu Ware Name: Hayde Morrison Name: Kady Stephenson Name: Angie Flores LPN Name: Ellyn Melendez I Name: Ellyn Gómez Director Of Education And Training Relationship Specialty Start Date End Date Marcelo Call MD [address] [place] [id number] PCP - General Family Medicine 12/19/22 INFORMATION SOURCE (unrecogn ized section and content) DATE CREATED AUTHOR 02/06/2022 [facility] DATE CREATED AUTHOR AUTHOR'S ORGANIZ ATION 08/11/2022 [facility] [employer] [facility] DATE CREATED AUTHOR AUTHOR'S ORGANIZ ATION 12/13/2023 [facility] DATE CREATED AUTHOR AUTHOR'S ORGANIZ ATION 01/04/2024 [facility] DATE CREATED AUTHOR AUTHOR'S ORGANIZ ATION 01/08/2024 [facility] DATE CREATED AUTHOR AUTHOR'S ORGANIZ ATION 01/15/2024 [facility] DATE CREATED AUTHOR AUTHOR'S ORGANIZ ATION 03/03/2024 [facility] Reason for Visit (unrecogniz ed section [...] BE BASED ON THE PRIMARY CLINICAL RECORDS. [employer] provides no warranty or guarantee of the accuracy or completeness of information in this document.
--- NOTE | 2024-03-24 23:42 | XR_ITS ---
The [address] [address] Patient Name: FARTUN SERRAON MRN: [id number] date: 1955 Sex: F Assigned Patient Location: ER Current Patient Location: Accession/Order Number: [id number] Exam Date: 03/24/2024 23:45 Report Date: 03/25/2024 00:39 At the request of: QUINCY WALDRON Procedure: XR hip RT 2V w/ pelvis EXAM: XR hip RT 2V w/ pelvis HISTORY: The patient is a 68-year-old female, fall, right hip pain COMPARISON: None. 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 No acetabular component is seen. This femoral head is not normally seated within the right acetabulum. Without prior imaging for comparison I cannot determine if this represents an acute dislocation of the prosthetic right femoral head or if this represents its chronic position. Comparison with prior outside imaging studies of the right hip/pelvis would be extremely helpful. No periprosthetic fractures are seen around the right femoral component. The lack screws across the left femoral neck with no radiographic evidence of hardware loosening or failure. No acute or ununited fractures are seen within the proximal left femur. There is severe osteoarthritic narrowing of the superior weightbearing surface of the left hip joint. The sacroiliac joints are maintained. The pubic symphysis is maintained. XR/XR hip RT 2V w/ pelvis IMPRESSION: As above. Electronically authenticated by: SUNITAH SMITH Date: 03/25/2024 00:39
--- NOTE | 2024-03-24 23:43 | ED.FALL1 ---
HPI HPI - Fall General Chief Complaint: Fall Stated Complaint: FALL Time Seen by Provider: 03/24/24 23:16 Source: patient Mode of arrival: ambulance Limitations: no limitations History of Present Illness HPI Narrative: pt was trying to get out of bed an NH and slid off the bed, landing onto her right buttock and right hip. She was sent to the ED by EMS for evaluation of the right hip pain. Per pt, nothing given for pain at the NH. Pt said that she has had both of her hips replaced and said that she has not been able to move the right hip through full range of motion or walk without a walker in years . Opioid HPI Opioid Management Most Recent Pain and Opioid Data: Last Pain Scale 10 03/25/24 00:26 03/25/24 Last ED Pain Assessment 03/24/24 23:20 Last MAR Pain Assessment 03/25/24 00:26 PFSH PFSH Social History Little interest or pleasure in doing things: not at all Feeling down, depressed, or hopeless: not at all Exam Narrative Exam Narrative: Nurses note and vital signs reviewed and patient is not hypoxic. afebrile General: The patient appears well and in no apparent distress. Patient is resting comfortably on cart. GCS = 15. Skin: Warm, dry, no pallor noted. Head: Normocephalic, atraumatic Neck: Supple, trachea mid-line, no tenderness, no lymphadenopathy. Full ROM and no cervical spinal tenderness. The patient has no step-offs or crepitus noted Eyes: PERRLA, EOMI Cardiovascular: Regular Rate and Rhythm Respiratory: Patient is in no distress, no accessory muscle use, lungs are clear to auscultation, no wheezing, rales or rhonchi Back: No thoracic vertebral or lumbar vertebral tenderness to palpation. Musculoskeletal: Right hip pain with palpation. No right LE shortening or external rotation. no additional sign of long bone fracture - no right thigh, knee, lower leg, ankle or foot tenderness or swelling. Pulses at femoral, DP, PT, and popiteal were 2+ bilaterally. Moves three remaining extremities in all modalities with 5/5 strength. 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 Psychiatric: Cooperative Constitutional Vital Signs, click to edit/add: Last Vital Signs Temp 99.9 F 03/24/24 23:18 Pulse 114 H 03/24/24 23:18 Resp 18 03/24/24 23:18 BP 112/62 03/24/24 23:18 Pulse Ox 91 L 03/24/24 23:18 O2 Del Method Room Air 03/24/24 23:18 Course Vital Signs Vital signs: Vital Signs Temperature 99.9 F 03/24/24 23:18 Pulse Rate 114 H 03/24/24 23:18 Respiratory Rate 18 03/24/24 23:18 Blood Pressure 112/62 03/24/24 23:18 Pulse Oximetry 91 L 03/24/24 23:18 Oxygen Delivery Method Room Air 03/24/24 23:18 Temperature 99.9 F 03/24/24 23:18 Pulse Rate 114 H 03/24/24 23:18 Respiratory Rate 18 03/24/24 23:18 Blood Pressure 112/62 03/24/24 23:18 Pulse Oximetry 91 L 03/24/24 23:18 Oxygen Delivery Method Room Air 03/24/24 23:18 MDM - Fall MDM Narrative Medical decision making narrative: Patient given Tylenol for pain. X-rays of the right hip and pelvis obtained. Per radiologist and my viewing of the radiographs of the right hip, the position is atypical but is also a hip replacement without an acetabular component. It appears, based on the patient's history, that this may be chronic positioning. No acute fracture is noted and the hardware appears intact. Pt informed of this and is agreeable to go back to the [place]. Imaging Data xr right hip: My impression: Patient Name: FARTUN SERRANO MRN: [id number] date: 1955 Sex: F Assigned Patient Location: Current Patient Location: Accession/Order Number: [id number] Exam Date: 03/24/2024 23:45 Report Date: 03/25/2024 00:39 At the request of: QUINCY WALDRON Procedure: XR hip RT 2V w/ pelvis EXAM: XR hip RT 2V w/ pelvis HISTORY: The patient is a 68-year-old female, fall, right hip pain COMPARISON: None. 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 No acetabular component is seen. This femoral head is not normally seated within the right acetabulum. Without prior imaging for comparison I cannot determine if this represents an acute dislocation of the prosthetic right femoral head or if this represents its chronic position. Comparison with prior outside imaging studies of the right hip/pelvis would be extremely helpful. No periprosthetic fractures are seen around the right femoral component. The lack screws across the left femoral neck with no radiographic evidence of hardware loosening or failure. No acute or ununited fractures are seen within the proximal left femur. There is severe osteoarthritic narrowing of the superior weightbearing surface of the left hip joint. The sacroiliac joints are maintained. The pubic symphysis is maintained. Radiologist's impression: ITS Impressions Hip/Pelvis X-Ray 03/24/24 23:42 IMPRESSION: As above. Electronically authenticated by: SUNITHA SMITH Date: 03/25/2024 00:39 Discharge Plan Discharge Chief Complaint: Fall Clinical Impression: Acute pain of right hip Patient Disposition: Home, Self-Care Time of Disposition Decision: 00:51 Print Language: Lithuanian Instructions: Hip Pain (ED) Referrals: SUSAN BATISTA [Primary Care Provider] - 1 week
[2024-03-25] MEDS: ACETAMINOPHEN 500 MG TABLET 1000 MG PO (00:26)
[2024-03-25 02:11] VITALS: BP 121/51; PULSE 104; O2SAT 91
== END 2024-03-25 02:44 | disposition home or self-care (01) ==
PROVIDERS: Emergency Provider Emergency Medicine; PCP Family Medicine
DX: M25.551 Pain in right hip (principal); Z96.643 Presence of artificial hip joint, bilateral
CPT/HCPCS: 73502; 99283

== ENCOUNTER 2024-03-28 23:00 | Outpatient (REF) | payer MEDICARE, MEDICAID, SELFPAY ==
[2024-03-29 14:54] LABS: Bilirubin Urine NEGATIVE (NEGATIVE); Blood Urine TRACE-I (NEGATIVE); Clarity Urine CLEAR (CLEAR); Color Urine LT. YELLOW (YELLOW); Glucose Urine UA NEGATIVE (NEGATIVE); Ketones Urine NEGATIVE (NEGATIVE); Leukocyte Esterase Urine TRACE (NEGATIVE); Nitrite Urine NEGATIVE (NEGATIVE); Protein Urine NEGATIVE (NEG/TRACE); Urine Microscopic Indicated YES; Urobilinogen Urine 0.2 EU/dL (0.2-1.0)
[2024-03-29 15:07] LABS: Bacteria Urine NONE SEEN #/HPF (NONE SEEN); Cast Seen? NONE SEEN #/LPF (NONE SEEN); Crystals Seen? None Seen #/HPF (None Seen); Mucus Urine NONE SEEN (NONE SEEN); RBC Urine 0-2 #/HPF (0-2); Squamous Epithelial Cell Urine RARE #/LPF (NONE/RARE)
== END 2024-03-28 23:01 | disposition home or self-care (01) ==
LOC: LAB 23:00
PROVIDERS: PCP Family Medicine; Visit Provider Family Medicine
DX: R30.0 Dysuria (principal)
CPT/HCPCS: 81001

== ENCOUNTER 2024-04-25 08:54 | Emergency (ER) | payer MEDICARE, MEDICAID, SELFPAY ==
[2024-04-25 08:56] VITALS: BP 169/88; PULSE 65; TEMP 36.6; O2SAT 97; BMI 27.5
--- NOTE | 2024-04-25 09:01 | ECG_ITS ---
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
--- NOTE | 2024-04-25 09:04 | PC.NURSE ---
Patient reports history of constipation and is unsure when last solid BM was, abdomen tender and round, bowel sounds present in all quadrants.
--- NOTE | 2024-04-25 09:14 | CT_ITS ---
The [address] [address] Patient Name: FARTUN SERRANO MRN: [facility]:[id number] date: 1955 Sex: F Assigned Patient Location: ER Current Patient Location: ED.MAIN Accession/Order Number: [id number] Exam Date: 04/25/2024 09:25 Report Date: 04/25/2024 11:16 At the request of: BE MAIN Procedure: CT abdomen pelvis wo con EXAM: CT abdomen pelvis wo con 04/25/2024 COMPARISON: None. TECHNIQUE: 3 mm sections were obtained from the lung bases through the pubic symphysis without use of contrast. Coronal and sagittal reconstructed images were obtained. HISTORY: sbo ? FINDINGS: CT ABDOMEN: The lower cardiac chambers, posterior mediastinal structures and lung bases demonstrate no acute abnormality. Heart size is enlarged. Gallbladder surgically absent. Liver, spleen and adrenals appear unremarkable. Moderate background global atrophic changes of the pancreas with fatty infiltration involving uncinate process and pancreatic head noted. Mild background global atrophic changes of both kidneys. Mild multifocal cortical thinning versus persistent lobulation pattern is noted without hydronephrosis or nephrolithiasis. CT PELVIS: Uterus and ovaries are not seen. Intrapelvic contents partially obscured by artifact from hardware utilized proximal femurs. Urinary bladder is partially distended with no acute abnormality. Mild constipation suggested. Appendix may be surgically absent. Cecal tip is noted within the right hemipelvis. Aorta is nonaneurysmal with mild atherosclerotic change. Radiopaque pill is noted within the distal gastric lumen with transverse length 2.0 cm. No significantly enlarged adenopathy or ascites. Intracortical screw fixation of the left femoral neck as well as right hip arthroplasty noted. Significant degenerative changes of the lower thoracic and lumbar spine with multilevel canal stenosis identified. Subchondral changes involving the left femoral head may be degenerative or related to avascular necrosis. CT/CT abdomen pelvis wo con IMPRESSION: 1. Cardiomegaly. 2. Cholecystectomy and hysterectomy. 3. Constipation. No acute intra-abdominal or pelvic process otherwise noted. Electronically authenticated by: LAZARA SNELL Date: 04/25/2024 11:16
[2024-04-25 09:21] LABS: Basophils Percent Auto 0.4 % (0.2-2.0); Eosinophils Absolute Auto 0.2 10^3/uL (0.0-0.7); Eosinophils Percent Auto 2.2 % (0.9-7.0); Hematocrit 36.5 % (36.0-48.0); Immature Granulocytes Abs Auto 0.03 10^3/uL (0.00-0.03); Immature Granulocytes Pct Auto 0.4 % (0.0-0.5); Lymphocytes Absolute Auto 0.9 10^3/uL (1.2-3.8); Lymphocytes Percent Auto 11.7 % (20.5-60.0); Mean Corpuscular HGB Conc 32.9 g/dL (29.9-35.2); Mean Corpuscular Hemoglobin 31.7 pg (26.7-34.0); Mean Corpuscular Volume 96.6 fL (81.0-99.0); Mean Platelet Volume 11.3 fL (9.5-13.5); Monocytes Absolute Auto 0.6 10^3/uL (0.3-0.8); Monocytes Percent Auto 8.3 % (1.7-12.0); Neutrophils Absolute Auto 5.9 10^3/uL (1.4-6.5); Platelet Count 165 10^3/uL (150-450); Red Blood Count 3.78 10^6/uL (4.20-5.40); Red Cell Distribution Width 11.9 % (11.0-15.0); White Blood Count 7.7 10^3/uL (4.0-11.0)
--- OUTSIDE RECORDS SUMMARY | 2024-04-25 09:24 | XMS_ITS | CCD ---
Author Organization [facility] Care Team Providers Care Government Affairs Researcher Name Role Phone Marcelo Call Primary Care Physician Efrem Matos Unavailable Unavailable Matthieu Ware Unavailable Unavailable Hayde Morrison Unavailable Unavailable Kady Stephenson Unavailable Unavailable ZidaAlma Rosa segurathia Unavailable Unavailable Ellyn Melendez I Unavailable Unavailable Hollluz maria Ellyn Unavailable Unavailable Sienna Fernández Unavailable Unavailable Saulo, Dr. Chuck Moore Attending Yanni vailable Unavailable Primary Care Provider Unavailabl e PROVIDER, UNKNOWN Admitting Unavailable PROVIDER, UNKNOWN Attending Unavailable Ashish Chester Unavailable Vannessa Kaur Unavailable Unavailable Link Marcelo BANKS Primary Care Provider [facility] Primary Care Physician Carlosab Marcelo Emerson Primary Care Physician [phone] JOAQUIM RICE Attending Unavailable BROWNJOAQUIM A Referring Unavailable BROWN, JOAQUIM A Referring Unavailable BROWN, JOAQUIM A Attending Unavailable HILLS, ARNOLD D Referring [...] Attending Unavailable Brown, Joaquim A Referring Unavailable Lawton, Arnold D Admitting Unavailable Lawton, Arnold D Attending Unavailable Lawton, Arnold D Referring Unavailable Link, Marcelo C Admitting Unavailable Link, Marcelo C Attending Unavailable Link, Marcelo Rivers Attending Unavailable Link , Marcelo Primary Care Provider Allergies Allergy Classification Reported Allergen(s) Allergy Type Date of Onset Reaction(s) Facility bacitracin / neomycin / polymyxin b (1 source) bacitracin / neomycin / polymyxin b; Translations: [bacitracin/neomy andrea/polymyxin B topical] Drug Allergy Eruption of skin (disorder) [facility] NSAIDs (1 source) celecoxib; Translations: [celecoxib] Drug Allergy Eruption of skin (disorder) [facility] Penicillins (antibiotic) (2 sources) Amoxicillin; Translations: [amoxicillin] Drug Allergy Anaphylaxis (disorder) [facility] Comment on above: Tolerated ceftriaxon e several times in past Sulfonamides (antibiotic) (1 source) Sulfamethoxazole; Translations: [sulfamethoxazole ] Drug Allergy unknown [facility] Triclosan (1 source) Triclosan; Translations: [triclosan topical] Drug Allergy Eruption of skin (disorder) [facility] (20 sources) Adhesive bandage; Translations: [Adhesive Bandage] Drug allergy Eruption of skin (disorder) [facility] (20 sources) Amoxicillin; Translations: [amoxicillin] Drug Allergy 12-20-19 Anaphylaxis (disorder), Anaphylaxis [facility] Comment on above: Tolerated ceftriaxon e several times in past (20 sources) bacitracin / neomycin / polymyxin b; Translations: [bacitracin/neomy andrea/polymyxin B topical] Drug Allergy Eruption of skin (disorder) [facility] (20 sources) celecoxib; Translations: [celecoxib] Drug Allergy Eruption of skin (disorder) [facility] (20 sources) Penicillin; Translations: [penicillin] Drug Allergy Anaphylaxis (disorder) [facility] Comment on above: Tolerated ceftriaxon e several times in past (20 sources) Sulfamethoxazole; Translations: [sulfamethoxazole ] Drug Allergy unknown [facility] (20 sources) Triclosan; Translations: [triclosan topical] Drug Allergy Eruption of skin (disorder) [facility] (20 sources) goldbond cream; Translations: [goldbond cream] Drug allergy Eruption of skin (disorder) [facility] (5 sources) Aloe Extract Drug Allergy 12-20-19 Unknown [facility] (5 sources) Bacitracin / Polymyxin B Drug Allergy 12-20-19 23 Rash [facility] Other (5 sources) Benzalkonium Drug Allergy 04-20-19 14 Unknown [facility] Other (5 sources) corn starch Drug Allergy 12-20-19 Unknown [facility] Other (5 sources) dimethicone Drug Allergy 12-20-19 Unknown [facility] Other (5 sources) Kaolin Drug Allergy 12-20-19 Unknown [facility] Other (6 sources) meloxicam; Translations: [meloxicam] Drug Allergy Unknown [facility] (5 sources) pramoxine Drug Allergy 12-20-19 Unknown [facility] Other (3 sources) Zinc Oxide Drug Allergy Unknown [facility] Other (5 sources) Substance with sulfonamide structure and antibacterial mechanism of action (substance) Drug allergy 12-20-19 Unknown [facility] Other (2 sources) celecoxib Drug Allergy 04-20-19 14 Rash, Unknown [facility] (2 sources) meloxicam Drug Allergy 12-20-19 [facility] (2 sources) Menthol Drug Allergy 12-20-19 Unknown [facility] (2 sources) Triclosan Drug Allergy 12-20-19 Rash [facility] (2 sources) Zinc oxide Allergy to substance 12-20-19 Unknown [facility] (2 sources) Wound Dressing Adhesive Drug Allergy 12-20-19 Rash [facility] (3 sources) Acetaminophen / HYDROcodone; Translations: [Vicodin] Drug Allergy [facility] (3 sources) Latex; Translations: [Latex] Propensity to adverse reactions (disorder) [facility] (3 sources) Penicillin; Translations: [penicillin] Drug Allergy [facility] (1 source) Bacitracin Drug Allergy 04-16-19 24 [facility] (1 source) Neomycin Drug Allergy 04-16-19 [facility] (1 source) Penicillin G Drug Allergy 05-20-19 Anaphylaxis [facility] (1 source) Polymyxin B Drug Allergy 04-16-19 [facility] Medications Current Medications Medication Drug Class(es) Dates Sig (Normalized) Sig (Original) acetaminophen 325 mg oral tablet (10 sources) Start: 04-11-2023 take 325 mg by mouth three times daily acetaminophen 325 mg, Oral, TID, Refills(s) 0, Pain Start Date: 04/11/23 Status: Ordered acetaminophen 325 mg / HYDROcodone bitartrate 5 mg oral tablet (16 sources) Opioid Agonist Start: 01-28-2022 take 1 tablet by mouth twice daily for pain [place] 325 mg-5 mg oral tablet 1 tab(s), Oral, BID for pain, Refill(s) 0 Start Date: 01/28/22 Status: Ordered acetaminophen 325 mg / oxyCODONE hydrochloride 5 mg oral tablet (20 sources) Opioid Agonist Start: 01-22-2024 take 1 tablet by mouth every twelve hours for pain acetaminophen-oxyco done 325 mg-5 mg Tab 1 tab(s), Oral, q12hr for pain, 60 tab(s), Refill(s) 0, [facility], 162.5, cm, 12/30/23 17:04:00 EDT, Height/Length Dosing, 79.1, kg, 12/30/23 17:04:00 EDT, Weight Dosing Start Date: 01/22/24 Status: Ordered Start: 12-24-2023 take 1 tablet by bhavna th every twelve hours for pain acetaminophen-oxycodone 325 mg-5 mg Tab 1 tab(s), Oral, q12hr for pain, 60 tab(s), Refill(s) 0, [facility], 162.5, cm, 11/28/23 10:52:00 EDT, Height/Length [...] Oral, q8hr, 90 tab(s), Refill(s) 0, [facility], 162.5, cm, 07/01/23 14:10:00 EDT, Height/Length Dosing, 68.8, kg, 07/01/23 14:10:00 EDT, Weight Dosing Start Date: 07/02/23 Status: Ordered Start: 07-01-2023 take 1 tablet by bhavna th every six hours Percocet 5 mg-325 mg oral tablet 1 tab(s), Oral, q6hr, 120 tab(s), Refill(s) 0, [facility], 162.5, cm, 07/01/23 14:10:00 EDT, Height/Length Dosing, 68.8, kg, 07/01/23 14:10:00 EDT, Weight Dosing Start Date: 07/01/23 Status: Ordered Start: 05-19-2023 oxyCODONE-acet aminophen (Percocet) 10-325 MG tablet 05/19/2023 Active Start: 04-11-2023 take 1 tablet by bhavna th every four hours for pain Percocet [...] M19.9 hip fracture, 80 tab(s), [facility](s) 0, [facility], cm, 11/24/22 0:45:00 EDT, Height/Length [...] for 3 day(s), 12 tab(s), Refill(s) 0, [facility], 165, cm, 03/13/22 16:40:00 EST, Height/Length [...] 500 mg by mouth in the morning. Active take 1 tablet by mouth every twe lve hours Ascorbic Acid 500 MG 1 tablet Orally BID Active aspirin 81 mg delayed release oral tablet (8 sources) Platelet Aggregation Inhibitor, Nonsteroidal Anti-inflammatory Drug [...] 81 mg by mouth in the morning. Active atorvastatin 40 mg oral tablet (20 [...] EC tablet Take 10 mg by mouth. 11/27/2022 Active Start: 11-27-2022 take 2 tablets by mo [facility] once as needed for constipation bisacodyl [...] 2 TABLETS BY MOUTH once a day 11/29/2022 Active Start: 05-23-2021 take 1 tablet [...] (20 sources) Nonsteroidal Anti-inflammatory Drug Start: 12-24-2022 celecoxib (CeleBREX) 100 MG capsule Take 100 mg by mouth. 12/24/2022 Active cephalexin 500 mg oral capsule (5 sources) Cephalosporin Antibacterial Start: 05-25-2021 take 1 capsule by mouth every eight hours Keflex 500 mg Cap 500 mg = 1 cap(s), Oral, q8hr, # 30 cap(s), Refills(s) 0, Pharmacy: [facility], 163, cm, 05/23/21 14:18:00 EST, Height/Length Dosing, 82, kg, 05/23/21 14:18:00 EST, Weight Dosing Start Date: 05/25/21 Status: Ordered ciprofloxacin 500 mg oral tablet (7 sources) Quinolone Antimicrobial Start: 12-30-2023 End: 01-09-2024 take 1 tablet by mouth every twelve hours ciprofloxacin 500 mg Tab 500 mg = 1 tab(s), Oral, q12hr, X 10 day(s), # 20 tab(s), Refills(s) 0, Pharmacy: [facility], 162.5, cm, 12/30/23 17:04:00 EDT, Height/Length Dosing, 79.1, kg, 12/30/23 17:04:00 EDT, Weight Dosing Start Date: 12/30/23 Stop Date: 01/09/24 Status: Ordered Start: 02-13-2023 take 1 tablet by bhavna every twelve hours Cipro 500 mg Tab [...] anxiety, # 180 tab(s), Refills(s) 0, Pharmacy: [facility], 162.5, cm, 12/30/23 17:04:00 EDT, Height/Length Dosing, 79.1, kg, 12/30/23 17:04:00 EDT, Weight Dosing Start Date: 02/04/24 Status: Ordered Start: 12-23-2023 take 2 tablets by mo [facility] three times daily as needed for anxiety diazepam 2 mg Tab 4 mg = 2 tab(s), Oral, TID, PRN for anxiety, # 180 tab(s), Refills(s) 0, Pharmacy: [facility], 162.5, cm, 11/28/23 10:52:00 EDT, Height/Length Dosing, 77.3, kg, 11/28/23 10:52:00 EDT, Weight Dosing Start Date: 12/23/23 Status: Ordered Start: 11-06-2023 take 2 tablets by [facility] three times daily as needed for anxiety diazepam 2 mg Tab 4 mg = 2 tab(s), Oral, TID, PRN for anxiety, # 180 tab(s), Refills(s) 0, Pharmacy: [facility], 162.5, cm, 11/06/23 14:42:00 EDT, Height/Length Dosing, 73.7, kg, 11/06/23 14:42:00 EDT, Weight Dosing Start Date: 11/07/23 Status: Ordered Start: 08-04-2023 Valium 2 mg Ta b 2 mg = 1 tab(s), Oral, TID, Every 8 hours for management of anxiety, # 90 tab(s), Refills(s) 0, Pharmacy: [facility], 162.5, cm, 07/01/23 14:10:00 EDT, Height/Length Dosing, 68.8, kg, 07/01/23 14:10:00 EDT, Weight Dosing Start Date: 08/04/23 Status: Ordered Start: 07-01-2023 Valium 2 mg Ta b 2 mg = 1 tab(s), Oral, TID, Every 8 hours for management of anxiety, # 90 tab(s), Refills(s) 0, Pharmacy: [facility], 162.5, cm, 07/01/23 14:10:00 EDT, Height/Length [...] Active Start: 12-24-2022 take 1 tablet by [facility] every eight hours as needed for muscle spasms Valium 5 mg Tab 5 mg = 1 tab(s), Oral, q8hr, PRN Spasm, # 20 tab(s), Refills(s) 0 Start Date: 12/24/22 Status: Ordered take 1 tablet by [facility] every twenty-four hours diazePAM 5 MG 1 tablet as needed Orally Once a day Active dicyclomine hydrochloride 10 mg oral capsule (16 sources) Anticholinergic Start: 02-12-2024 take 1 capsule by mouth four times daily Bentyl 10 mg Cap 10 mg = 1 cap(s), Oral, QID, # 360 cap(s), Refills(s) 1, Pharmacy: [facility], 162.5, cm, 12/30/23 17:04:00 EDT, Height/Length Dosing, 79.1, kg, 12/30/23 17:04:00 EDT, Weight Dosing Start Date: 02/12/24 Status: Ordered Start: 08-12-2023 take 1 capsule by [facility] four times daily Bentyl 10 mg Cap 10 mg = 1 cap(s), Oral, QID, # 120 cap(s), Refills(s) 1, Pharmacy: [facility], 162.5, cm, 11/28/23 10:52:00 EDT, Height/Length Dosing, 77.3, kg, 11/28/23 10:52:00 EDT, Weight Dosing Start Date: 12/23/23 Status: Ordered Start: 08-05-2023 take 1 capsule by [facility] four times daily Bentyl 10 mg Cap 10 mg = 1 cap(s), Oral, QID, # 120 cap(s), Refills(s) 1, Pharmacy: [facility], 162.5, cm, 07/01/23 14:10:00 EDT, Height/Length [...] day(s), # 28 cap(s), Refills(s) 0, Pharmacy: [facility] #[facility], 165, cm, 03/13/22 16:40:00 EST, Height/Length [...] qWeek, # 2 mL, Refills(s) 11, [facility], 162.5, cm, 07/01/23 14:10:00 EDT, Height/Length Dosing, 68.8, kg, 07/01/23 14:10:00 EDT, Weight Dosing Start Date: 07/05/23 Status: Ordered Start: 06-19-2023 inject 0.5 mL by sub cutaneous injection [...] Ordered Start: 05-23-2021 take 1 capsule by [facility] once daily esomeprazole 20 mg Cap-DR 20 mg = 1 cap(s), Oral, Daily, # 30 cap(s), Refills(s) 0, Control of stomach acid Start Date: 05/23/21 Status: Ordered take 1 capsule by [facility] once daily in the morning esomeprazole (NexIUM) [address] capsule TAKE 1 CAPSULE BY MOUTH EVERY MORNING prior to any food or medications Active ferrous sulfate 325 mg oral tablet (20 sources) Start: 11-27-2022 ferrous sulfat e 325 (65 Fe) MG tablet Take 325 mg by mouth. 11/27/2022 Active take 1 tablet by mouth three vadim es weekly Ferrous Sulfate 325 (65 Fe) MG 1 tablet Orally Three times a Week Active gabapentin 600 mg oral tablet (20 sources) Anti-epileptic Agent Start: 03-04-2024 take 1 tablet by mouth three times daily gabapentin 600 mg Tab 600 mg = 1 tab(s), Oral, TID, # 90 tab(s), Refills(s) 2, Pharmacy: [facility], 162.5, cm, 03/04/24 11:49:00 EST, Height/Length Dosing, 79.1, kg, 03/04/24 11:49:00 EST, Weight Dosing Start Date: 03/04/24 Status: Ordered Start: 02-12-2024 take 1 capsule by [facility] three times daily gabapentin 300 mg Cap 300 mg = 1 cap(s), Oral, TID, # 270 cap(s), Refills(s) 1, Pharmacy: [facility], 162.5, cm, 12/30/23 17:04:00 EDT, Height/Length Dosing, 79.1, kg, 12/30/23 17:04:00 EDT, Weight Dosing Start Date: 02/12/24 Status: Ordered Start: 08-01-2023 take 1 capsule by [facility] three times daily gabapentin 300 mg Cap 300 mg = 1 cap(s), Oral, TID, # 90 cap(s), Refills(s) 1, Pharmacy: [facility], 162.5, cm, 11/06/23 14:42:00 EDT, Height/Length Dosing, 73.7, kg, 11/06/23 14:42:00 EDT, Weight Dosing Start Date: 11/07/23 Status: Ordered Start: 07-01-2023 take 1 capsule by [facility] three times daily gabapentin 300 mg Cap 300 mg = 1 cap(s), Oral, TID, # 90 cap(s), Refills(s) 1, Pharmacy: [facility], 162.5, cm, 07/01/23 14:10:00 EDT, Height/Length Dosing, 68.8, kg, 07/01/23 14:10:00 EDT, Weight Dosing Start Date: 07/01/23 Status: Ordered Start: 01-28-2022 take 800 mg by mouth three times daily gabapentin 800 mg, Oral, TID, Refills(s) 0, Neuropathy Start Date: 01/28/22 Status: Ordered Start: 02-26-2018 take 1 capsule by [facility] three times daily gabapentin 300 mg Cap 300 mg = 1 cap(s), Oral, TID, Refills(s) 0, Neuropathy Start Date: 02/26/18 Status: Ordered heparin (2 sources) Unfractionated Heparin, Anti-coagulant Start: 02-13-2023 heparin flush 1 unit(s), IV Push, q24hr, 1 unit/ml, total 5 ml flush, Refills(s) 0 Start Date: 02/13/23 Status: Ordered HEPARIN & NACL LOCK FLUSH IV (1 source) HEPARIN & NACL L OCK FLUSH IV Infuse into a venous catheter. 0 Active hydrocortisone 10 mg/ml rectal cream (1 source) Corticosteroid Start: 06-20-2023 hydrocortisone 1 % cream 06/20/2023 Active hydrOXYzine hydrochloride 25 mg oral tablet [...] Refills(s) 0 Start Date: 01/28/22 Status: Ordered 3 ml insulin aspart, human 100 unt/ml pen injector (15 sources) Insulin Analog Start: 06-20-2023 Fiasp FlexTouch 100 UNIT/ML injection 06/20/2023 Active Start: 12-19-2022 NovoLOG 100 un its/mL injectable solution Refills(s) 0 Start Date: 12/19/22 [...] bedtime), # 15 mL, Refills(s) 5, Pharmacy: [facility], 162.5, cm, 07/01/23 14:10:00 EDT, Height/Length [...] Inject 15 units sub-q daily at bedtime Active insulin glargine-yfgn (Semglee-yfgn) 100 UNIT/ML pen (1 source) Start: 04-10-2023 insulin glargi ne-yfgn (Semglee-yfgn) 100 UNIT/ML pen 04/10/2023 Active insulin lispro 100 unt/ml injectable solution (12 sources) Insulin Analog Start: 04-25-2023 Insulin Lispro 100 UNIT/ML solution 04/25/2023 Active Start: 12-24-2022 End: 12-24-2022 HumaLOG Sliding Scale 0-10 U nit(s), Injection-Insulin, SubCutaneous, Start date 12/24/22 12:00:00 PM [...] 1 00 UNIT/ML as directed Injection Active insulin lispro 25 unt/ml / insulin [...] mg oral tablet (20 sources) l-Thyroxine Start: take 1 tablet by mouth once daily levothyroxine 112 mcg (0.112 mg) Tab 112 mcg = 1 tab(s), Oral, Daily, # 30 tab(s), Refills(s) 0, Thyroid Start Date: 05/23/21 Status: Ordered take 1 tablet by mouth in the mo rning levothyroxine (Synthroid, Levoxyl) 112 MCG tablet Take 112 mcg by mouth in the morning. Active lisinopril 10 mg oral tablet (20 sources) Angiotensin Converting Enzyme Inhibitor Start: 07-01-2023 take 1 tablet by mouth once daily lisinopril 10 mg Tab 10 mg = 1 tab(s), Oral, Daily, # 30 tab(s), Refills(s) 1, Pharmacy: [facility], 162.5, cm, 07/01/23 14:10:00 EDT, Height/Length Dosing, 68.8, kg, 07/01/23 14:10:00 EDT, Weight Dosing Start Date: 07/01/23 Status: Ordered Start: 02-02-2022 End: 11-29-2022 lisinopril 20 mg Tab 20 mg = 1 tab(s), Tab, Oral, Start date 11/29/22 9:00:00 EDT, 11/28/22 21:10:00 EDT Start Date: 11/29/22 Stop Date: 11/29/22 Status: Completed Start: 08-14-2020 lisinopril 40 MG tablet Take 40 mg by mouth. 12/03/2022 Active Max Tussin DM Cough&Chest Mikhail 20-200 MG/10ML liquid (1 source) Start: 07-03-2023 Max Tussin DM Cough&Chest Mikhail 20-200 MG/10ML liquid 07/03/2023 Active meclizine hydrochloride 12.5 mg oral tablet (5 [...] Ordered Nutritional Supplements (Boost Glucose Control) liquid (2 sources) Nutritional Supplements (Boost Glucose Control) liquid Take by mouth. Active Nutritional Supp lements (Boost Glucose Control) liquid Take by mouth. 0 Active nystatin 100 unt/mg topical powder (15 sources) Polyene Antifungal Start: 02-03-2024 nystatin To p 100,000 units/g Pwdr 1 rhonda, Topical, BID, 60 gram, Refill(s) 2, [facility], 162.5, cm, 12/30/23 17:04:00 EDT, Height/Length Dosing, 79.1, kg, 12/30/23 17:04:00 EDT, Weight Dosing Start Date: 02/03/24 Status: Ordered Start: 08-29-2023 nystatin Top 1 00,000 units/g Pwdr 1 rhonda, Topical, BID, 60 gram, Refill(s) 2, [facility], 162[facility]5, cm, 08/07/23 11:49:00 EDT, Height/Length Dosing, 70.9, kg, 08/07/23 11:49:00 EDT, Weight Dosing Start Date: 08/29/23 Status: Ordered Start: 05-04-2023 nystatin (Myco statin) 113516 UNIT/GM powder 05/04/2023 Active Start: 12-19-2022 nystatin Top 1 00,000 units/g Crm 15 gram 1 rhonda, Topical, BID, 15 gram, Refill(s) 0 Start Date: 12/19/22 Status: Ordered omeprazole 20 mg delayed release oral capsule (20 sources) Proton Pump Inhibitor Start: 02-13-2023 omeprazo le (PriLOSEC) [address] capsule 06/20/2023 Active take 1 tablet by mouth before me altime omeprazole OTC (PriLOSEC OTC) 20 MG EC tablet Take 20 mg by mouth in the morning. Take before meals. Do not crush, chew, or split. . 0 Active ondansetron 4 mg oral tablet (16 sources) Serotonin-3 Receptor Antagonist Start: 04-25-2023 take 1 tablet by mouth every six hours as needed for nausea ondansetron 4 mg Tab 4 mg = 1 tab(s), Oral, q6hr, PRN Nausea/Vomiting, # 90 tab(s), Refills(s) 1, Pharmacy: [facility], 162.5, cm, 07/01/23 14:10:00 EDT, Height/Length Dosing, 68.8, kg, 07/01/23 14:10:00 EDT, Weight Dosing Start Date: 07/01/23 Status: Ordered 24 hr oxybutynin chloride 5 mg extended release oral tablet (14 sources) Cholinergic Muscarinic Antagonist Start: 07-01-2023 take 1 tablet by mouth once daily oxybutynin 5 mg ER Tab 5 mg = 1 tab(s), Oral, Daily, # 30 tab(s), Refills(s) 1, Pharmacy: [facility], 162.5, cm, 07/01/23 14:10:00 EDT, Height/Length Dosing, 68.8, kg, 07/01/23 14:10:00 EDT, Weight Dosing Start Date: 07/01/23 Status: Ordered Start: 07-01-2023 oxybutynin XL (Ditropan-XL) 5 MG 24 hr tablet 07/01/2023 Active PARoxetine hydrochloride 40 mg oral tablet (20 sources) Serotonin Reuptake Inhibitor Start: 12-19-2022 take 1 tablet by mouth in the morning PARoxetine (Paxil) 40 MG tablet Take 40 mg by mouth in the morning. 04/10/2023 Active Start: 08-14-2020 [facility] P[facility]il 10 mg Tab 50 mg = 5 tab(s), Oral, Daily, one tablet 5 times a day, Depression Start Date: 08/14/20 Status: Ordered Start: 08-14-2020 take 5 tablets by mo [facility] once daily Paxil 10 mg Tab 50 mg = 5 tab(s), Oral, Daily, Depression Start Date: 08/14/20 Status: Ordered take 1 tablet by bhavna th every twenty-four hours polyethylene glycol 3350 22898 mg powder for oral solution (1 source) Osmotic Laxative Start: 06-20-2023 polyethylene glycol, PEG, 3350 (Glycolax) 17 GM/SCOOP powder 06/20/2023 Active potassium chloride 20 meq extended release oral tablet (20 sources) Start: 06-20-2023 potassium chlo ride CR (K-Tab) 20 MEQ ER tablet 06/20/2023 Active Start: 05-07-2023 potassium chlo ride CR (Klor-Con M20) 20 MEQ ER tablet 05/07/2023 Active Start: 02-13-2023 take 2 tablets by mo [facility] once daily potassium chloride 20 mEq ER [...] bedtime. 0 Active take 2 tablets by [facility] every twenty-four hours Potassium Chloride Elena ER 20 MEQ 2 tablet with food Orally Once a day Active reader (12 sources) Start: 01-22-2024 reader reader, See Instructions, 1 EA, 0, 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, [facility], Supply, 162.5, cm, 12/30/23 17:04:00 EDT, Height/Length Dosing, 79.1, kg, 12/30/23 17:04:00 EDT, Weight Dosing Start Date: 01/22/24 Status: Ordered Start: 07-05-2023 reader reader, See Instructions, 1 EA, 0, 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, [facility], Supply, 162.5, cm, 07/01/23 14:10:00 EDT, Height/Length Dosing, 68.8, kg, 07/01/23 14:10:00 EDT, Weight Dosing Start Date: 07/05/23 Status: Ordered rosuvastatin calcium 20 mg oral tablet (20 sources) HMG-CoA Reductase Inhibitor Start: 05-23-2021 take 1 tablet by mouth once daily rosuvastatin (Crestor) 20 MG tablet Take 1 tablet by mouth Daily 12/25/2022 Active S.A.S (SALINE, ADMINISTRATION OF DRUG, SALINE) (3 [...] francheska 2 sensors change q 14 days, [facility], [facility], 162.5, cm, 07/01/23 14:10:00 EDT, Height/Length Dosing, 68.8, kg, 07/01/23 14:10:00 EDT, Weight Dosing Start Date: 07/05/23 Status: Ordered traZODone hydrochloride 50 mg oral tablet (20 sources) Serotonin Reuptake Inhibitor Start: 08-07-2023 traZODONE 50 mg Tab 25 mg = 0.5 tab(s), Oral, Once a day (at bedtime), # 15 tab(s), Refills(s) 3, Pharmacy: [facility], 162.5, cm, 08/07/23 11:49:00 EDT, Height/Length Dosing, 70.9, kg, 08/07/23 11:49:00 EDT, Weight Dosing Start Date: 08/07/23 Status: Ordered Start: 04-28-2023 take 1 tablet by [facility] once daily at bedtime traZODONE 50 mg Tab 50 mg = 1 tab(s), Oral, Once a day (at bedtime), # 30 tab(s), Refills(s) 5, Pharmacy: [facility], 162.5, cm, 12/30/23 17:04:00 EDT, Height/Length Dosing, 79.1, kg, 12/30/23 17:04:00 EDT, Weight Dosing Start Date: 12/30/23 Status: Ordered Start: 04-11-2023 traZODONE 50 m g Tab 25 mg = 0.5 tab(s), Oral, Daily, Refills(s) 0, Depression Start Date: 04/11/23 Status: Ordered Start: 04-11-2023 take 1 tablet by [facility] once daily at bedtime traZODONE 100 mg Tab 100 mg = 1 tab(s), Oral, Daily, At bedtime, # 30 tab(s), Refills(s) 1, Pharmacy: [facility], 162.5, cm, 07/01/23 14:10:00 EDT, Height/Length Dosing, 68.8, kg, 07/01/23 14:10:00 EDT, Weight Dosing Start Date: 07/01/23 Status: Ordered Start: 05-23-2021 take 2 tablets by [facility] once daily at bedtime traZODONE 100 mg [...] day(s), # 21 tab(s), Refills(s) 0, Pharmacy: [facility], 162.5, cm, 03/04/24 11:49:00 EST, Height/Length Dosing, 79.1, kg, 03/04/24 11:49:00 EST, Weight Dosing Start Date: 03/04/24 Stop Date: 03/11/24 Status: Ordered Zofran ODT 4 mg Tab-Dis (1 source) Start: 11-21-2021 take 1 tablet by mouth every eight hours as needed for nausea Zofran ODT 4 mg Tab-Dis 4 mg = 1 tab(s), Oral, q8hr, PRN Nausea/Vomiting, # 16 tab(s), Refills(s) 0, Pharmacy: [facility], 162.6, cm, 11/21/21 19:39:00 EDT, Height/Length [...] kit(s), 2, To check blood glucose levels, [facility], Supply, 162.5, cm, 12/30/23 17:04:00 EDT, Height/Length Dosing, 79.1, kg, 12/30/23 17:04:00 EDT, Weight Dosing Start Date: 01/15/24 Status: Ordered magnesium sulfate 225 MG / potassium chloride 188 MG / sodium sulfate 1479 MG Oral Tablet [Sutab] (1 source) Start: 04-10-2022 take 1 tablet by mouth once Sutab oral tablet See Instructions, 1 EA, Refill(s) 0, LEANDRO, Please follow instructions per packaging and physician's handout, [facility], 165, cm, 04/10/22 11:05:00 EST, Height/Length Dosing, 70.4, kg, 04/10/22 11:05:00 EST, Weight Dosing Start Date: 04/10/22 Status: Ordered Problems Active Problems Problem Classification Problem Date [...] left right Other aftercare (2 sources) 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 YELLOW YELLOW [facility] GLUCOSE URINE UA Negative NEGATIVE mg/dL [facility] Interpretation and review of laboratory results Abnormal [facility] Ketones Ql (U) Negative NEGATIVE mg/dL [facility] Leukocyte esterase Test strip Ql (U) TRACE Abnormal NEGATIVE [facility] NITRITE URINE Negative NEGATIVE [facility] pH (U) 6.0 [pH] 5.0 - 9.0 [facility] PROTEIN URINE Negative NEG/TRACE mg/dL [facility] SPECIFIC GRAVITY URINE 1.010 1.005 - 1.025 [facility] URINE MICROSCOPIC INDICATED YES [facility] UROBILINOGEN URINE 0.2 EU/dL 0.2 - 1.0 EU/dL N [facility] Pre-Visit Planningon 024 Pre-Visit Planning Pre-Visit Planning From: Leila Post To: Marcelo Call DO; Sent: 03/03/2024 12:30:33 EST Subject: Pre-Visit Planning Due Date/Time: 03/03/2024 12:30:00 EST Caller Name: ZACH FARTUN Arnlod; Caller Number: H Hi Dr. Call. During a pre-visit planning chart review, I noted the following documentation in the medical record: Current Problem List: Depression with anxiety (Other specified anxiety disorders) and Insomnia. Current Medication List: bupropion, diazepam, paroxetine, and trazodone. PHQ-9 Score: =19 on 12/30/2023. 04/14/2023 [facility] Records (page 7): Bipolar disorder, unspecified. [...] feel free to contact me at extension [phone]. Thank you! Leila Post LPN Clinical Fashion Adviser [address] [address] Extension: 2006 [email or web address] Normal [facility] XR Hip 2-3 Views Righton XR Hip [...] (Electronic Signature): 01/05/2024 1:29 pm Signed by: Jelain Strickland DO Transcribed by: ARTIS Technologist: JAVIER Technical Comments Radiation Dose: Ka,r in mGy = na DAP = na Normal [facility] XR Knee Complete 4+ Views Tess garsia [...] ARTIS Technologist: JAVIER Technical Comments Radiation Dose: Kahoda in mGy = na DAP = na Normal [facility] C Urineon 01-02-2024 Bacteria identified Cx Nom [...] Locations R1: This test was performed at: [facility], [address] [place] [address], [id number]- , [place], Normal [facility] Comment on above: Performed By: #### [id number] #### [facility] Laboratory [address] [place] [address] Ambulatory Visit Summaryon 1 Ambulatory Visit Summary Ambulatory Visit Summary FARTUN SCHNEIDER :1955 Visit Date:12/30/2023 Ambulatory Visit Instructions Your Diagnosis Dysuria Accidental fall Overactive bladder BMI 29.0-29.9,adult Non-smoker Obesity At risk for falls Your Care Team Attending Physician - Marcelo Call DO Primary Care Physician - Marcelo Call DO This Is Your Medications List [facility] Prescription (reader) [facility] Prescription (sensors) acetaminophen-oxycodo ne (acetaminophen-oxycod one 325 [...] AM EST With: Marcelo Call DO Where: [facility] [address] [place] [address]- 2024 11:00 AM EDT With: Where: [facility] [address] [place] [address]- You Need to Schedule the Following Appointments Follow Up with Marcelo Call DO, [facility] When: Within 4 weeks Comments: 4 WEEKS FOLLOWUP Where: [address] [place] [address]- You Need to Complete the Following XR Hip 2-3 Views Right, 12/30/23, Routine, Order for future visit, Transport Mode: Ambulatory, Reason: Fall, No, Accidental fall, pp_set_radiology_subs pecialty, Not Required, [facility] XR Knee Complete 4+ Views Right, 12/30/23, Routine, Order for future visit, Transport Mode: Ambulatory, Reason: Fall, No, Accidental fall, pp_set_radiology_subs pecialty, Not Required, [facility] Medications What How Much When Why Instructions New ciprofloxacin (ciprofloxacin 500 mg Tab) 1 Tablets By Mouth Every 12 hours Duration: 10 Days Pickup at [facility] Changed trazodone (traZODONE 50 mg Tab) 1 Tablets By Mouth Once a day (at bedtime) Pickup at [facility] Unchanged acetaminophen-oxycodo ne (acetaminophen-oxycod one 325 mg-5 [...] polyneuropathy Chr (more content not included)... Normal [facility] Family Medicine Office/Clini c Noteon 12-30-2023 Family Medicine [...] tablets of her Trazodone. _ Refill: Nystatin Bartow: 10/17/16, repeat in 10 years Dexa/Rex: per pt 2022 AMW: UTD Flu: per pt UTD History of Present Illness Patient presents today for urinary issues. Patient states that she has had urinary pressure and pain with urination for over a week. We received messages from [facility] [employer] to have UA with culture done, but [...] Urnls Dip Stick Auto w/o Microscopy POC 20162 2. Accidental fall (W19.XXXA: Unspecified fall, initial [...] 1100F Falls plan of care documented 0518F Orders: ciprofloxacin, 500 mg = 1 tab(s), Oral, q12hr, X 10 day(s), # 20 tab(s), Refills(s) 0, [facility]: [facility], 162.5, cm, 12/30/23 17:04:00 EDT, Height/Length Dosing, 79.1, kg, 12/30/23 17:04:00 EDT, Weight Dosing trazodone, 50 mg = 1 tab(s), Oral, Once a day (at bedtime), # 30 tab(s), Refills(s) 5, Pharmacy: [facility] (more content not included)... Normal [facility] Comment on above: Result Comment: Elec tronically [...] Call DO This Is Your Medications List [facility] Prescription (reader) Mis Prescription (sensors) acetaminophen-oxycodo ne (acetaminophen-oxycod one 325 [...] AM EST With: Marcelo Call DO Where: [place] [address] [place] [address] 2024 11:00 AM EDT With: Where: [facility] [address] [place] [address]- Medications What How Much When Why Instructions [...] By Mout (more content not included)... Normal [facility] CHEMISTRYOrdered By: SYSTEM SYSTEM on 11-28-2023 Albumin [...] of clutter to prevent tripping and/or falling. [place] Advance Directives reviewed, on file in chart. [...] with co (more content not included)... Normal [facility] Comment on above: Result Comment: Elec tronically [...] day What are your average readings?nurses at [facility] Do you have any of the following [...] next month 12/10, for a repeat x-ray. Bartow: 10/17/16, repeat in 10 years Dexa/Rex: per [...] listed, no changes. Updates provided today with [facility]. O (more content not included)... Normal [facility] Comment on above: Result Comment: Elec tronically Signed By: Marcelo Call DO\.br\Date and Time Signed: 11/28/23 11:10 EDT U [facility] 11-28-2023 Albumin DL <= 20 mg/L (U) [Mass/Vol] 0.9 mg/dL Normal 0.0-1.9 [facility] Comment on above: Performed By: #### 1 [id number] #### [facility] Laboratory [address] [place] [address] [facility] Patient Letter [facility] Patient Letter [facility] November 07, 2023 FARTUN SCHNEIDER [address] [facility] [address] [facility] [place] [address] : 1955 Patient was not prescribed Lorazepam during her 11/06/23 appointment. The only medication change was an increase in her Diazepam. New prescription sent to pharmacy per request from Kamlesh Pereyra Nurse. New prescription is as follows: Diazepam 2mg take 2 tablets by mouth TID PRN. If you have any further questions please reach out to my nurse, Bethel, at [phone]. Thank you, Dr. Marcelo Call, [address] [place] [address] [facility] Ambulatory Visit Summaryon 0 11-06-2023 Ambulatory Visit Summary Ambulatory Visit Summary ZACH FARTUN Arnold :1955 Visit Date:11/06/2023 Ambulatory Visit Instructions Your Diagnosis BMI 27.0-27.9,adult Non-smoker Excoriation (skin-picking) disorder Your Care Team Attending Marcelo Cartagena DO Primary Care Physician - Marcelo Call DO This Is Your Medications List [facility] Prescription (reader) [facility] Prescription (sensors) acetaminophen-oxycodo ne (acetaminophen-oxycod one 325 [...] Appointments Friday 9:30 AM EDT With: Where: [facility] [address] [place] [address]- Friday 10:40 AM EDT With: Marcelo Call DO Where: [facility] [address] [place] [address]- Medications What How Much When Why Instructions Changed diazepam (diazepam 2 mg Tab) 2 Tablets By Mouth 3 times a day as needed for for anxiety Pickup at [facility] Unchanged acetaminophen-oxycodo ne (acetaminophen-oxycod one 325 mg-5 [...] ondansetron (ondanset (more content not included)... Normal [facility] Family Medicine Office/Clini c Noteon 11-06-2023 Family Medicine Office/Clinic Note Family Medicine Office/Clinic Note Chief Complaint Rash HPI Staff Patient here for Acute Visit (sister, xx) Rash: Duration: 2 week New or Recurrent: new Location: back and right shoulder Description: red Rash symptoms: burning and tingling OTC: [id number] roll on (worsened the burning sensation) - Requesting Gabapentin refill. - Patient would like a letter from provider stating cause of rash. Bartow: 10/17/16, repeat in 10 years Dexa/Rex: per [...] anxiety, # 180 tab(s), Refills(s) 0, Pharmacy: [facility], 162.5, cm, 11/06/23 14:42:00 EDT, Height/Length [...] degenerative Diverticulitis Fibrocystic (more content not included)... Normal [facility] Comment on above: Result Comment: Elec tronically Signed By: Marcelo Call DO\.br\Date and Time Signed: 11/06/23 15:15 EDT Patient Letter FTon 2023 Patient Letter [facility] Patient Letter [facility] [address] [place] [address] November 06, 2023 FARTUN SCHNEIDER [address] [facility] [address] [place] [address] : 1955 To Whom It May Concern, [...] be discussed further. Sincerely, Marcelo Call D.O. Normal [facility] US LE Venous Duplex Righton 09-24-2023 LE Venous [...] Lin M.D. Transcribed by: ARTIS Technologist: SOURAV [facility] Consent for Treatmenton 08-30 Consent for Treatment [id number] .00TIFF [facility] Physician Orderon 09-22-2023 Physician Order [id number]#1 .00TIFF [facility] Ambulatory Visit Summaryon 0 09-18-2023 Ambulatory Visit Summary FARTUN SCHNEIDER :1955 Visit Date:09/18/2023 Ambulatory Visit Instructions Your Diagnosis BMI 27.0-27.9,adult Non-smoker Risk for falls Diabetes mellitus with polyneuropathy Chronic pain Your Care Team Attending Physician - Marcelo Call DO Primary Care Physician - Marcelo Call DO This Is Your Medications List [facility] Prescription (reader) [facility] Prescription (sensors) acetaminophen-oxycodo ne (acetaminophen-oxycod one 325 [...] Appointments Friday 9:30 AM EDT With: Where: [facility] Normal [address] [place] [address]-\.br\ Medications\.br\ What How Much When Why Instructions\.br\ [...] for choosing us for your care.\.br\ \.br\ [facility] Medicine Office/Clini c Noteon 09-18-2023 Family Medicine [...] appointment on Friday with Dr. Dooley, Orthopedic. Bartow: 10/17/16, repeat in 10 years Dexa/Rex: per [...] is not cooking for her self at [employer]. She has a tenderness on her right lower extremity on the lateral side. She is seeing Arnold Topete at orthopedics this week for evaluation. Patient needs her pain control and her insulin clarified at this time. She states that [facility] records are discrepant from our records. Review [...] bedtime, # 30 tab(s), Refills(s) 1, Pharmacy: [facility], 162.5, cm, 07/01/23 14:10:00 ED (more content not included)... [facility] Comment on above: Result Comment: Elec tronically Signed By: Marcelo Call DO\.br\Date and Time Signed: 09/18/23 15:14 EDT Long Term Recordson 09-15 Long Term Records [id number]#1. 00TIFF [facility] Long Term Recordson 09-02 Long Term Records [id number]#1. 00TIFF [facility] Long Term Recordson 08-31 Long Term Records [id number]#1. 00TIFF [facility] Retail - Clinical Noteon Retail - Clinical Note [id number]. 00TIFF [facility] Long Term Recordson 08-21 Long Term Records [id number]#1 .00TIFF [facility] Long Term Recordson 08-19 Long Term Records [id number]#1. 00TIFF [facility] Long Term Records [id number] .00TIFF [facility] Long Term Records [id number]. 00TIFF [facility] Long Term Recordson 08-11 Long Term Records [id number] .00TIFF [facility] Physician Orderon 08-11-2023 Physician Order [id number]#1. 00TIFF [facility] Ambulatory Visit Summaryon 0 08-07-2023 Ambulatory Visit Summary FARTUN SCHNEIDER :1955 Visit Date:08/07/2023 Ambulatory Visit Instructions Your Diagnosis BMI 26.0-26.9,adult Non-smoker Chronic pain Chronic GERD HTN (hypertension) Herpes zoster lesion Overactive bladder Insomnia Your Care Team Attending Physician - Marcelo Call DO Primary Care Physician - Marcelo Call DO This Is Your Medications List [facility] Prescription (reader) [facility] Prescription (sensors) acetaminophen acetaminophen-oxycodo ne (Percocet 5 [...] PM EDT With: Marcelo Call DO Where: [facility] Family Medicine Femi Normal [facility] Family Medicine Office/Clini c Noteon 05-09-2024 Family Medicine Office/Clinic Note Chief Complaint 4 [...] medication list from Facility states discontinued 07/01/23. Bartow: 10/17/16, repeat in 10 years Dexa/Rex: per [...] she states that she could use a single needle operator dose for pain control. She denies any [...] bedtime), # 15 tab(s), Refills(s) 3, Pharmacy: [facility], 162.5, cm, 08/07/23 11:49:00 EDT, Height/Length [...] will continue this (more content not included)... [facility] Comment on above: Result Comment: Elec tronically Signed By: Marcelo Call DO\.br\Date and Time Signed: 08/07/23 13:33 EDT Patient Letter FTon 2023 Patient Letter [facility] [address] [place] [address] August 07, 2023 FARTUN SCHNEIDER [address] [place] [address] : 1955 To Whom It May Concern: [...] this case further. Sincerely, Marcelo Call D.O. [facility] Retail - Clinical Noteon Retail - Clinical Note [id number] .00TIFF [facility] Lab Reportson 07-17-2023 Lab Reports [id number]#1 .00TIFF Normal [facility] Long Term Recordson 07-16 Long Term Records [id number]#1 .00TIFF Normal [facility] Long Term Records [id number]#1 .00TIFF Normal [facility] Long Term Records [id number]#1 .00TIFF Normal [facility] Long Term Records [id number]#1 .00TIFF Normal [facility] Lab Reportson 07-15-2023 Lab Reports [id number] .00TIFF Normal [facility] Family Medicine Office/Clini c Noteon 07-09-2023 Family [...] are incorrect. Pt would like a Charlene [facility] sensor prescription, Valium, Trazodone, Pain Medication, Bentyl and Zofran. Pt would also like to discuss UTI symptoms and Shingles. History of Present Illness Care History Patient known to me from prior practice at [facility]. Patient has significant mental health history [...] was 6.3% done by Dr. Baez at [facility]. Social Patient is a 67-year-old female [...] following information relevant to their care: - [facility] Patient has a recent outbreak of [...] chronic pain) Patient's pain well controlled with [place] 5-325 previously. We will establish medication contrac (more content not included)... Normal [facility] Comment on above: Result Comment: Elec tronically [...] Comments: 4 WEEKS FOLLOWUP Where: [address] [place] [address]- Medications What How Much When Why Instructions New gabapentin (gabapentin 300 mg Cap) 1 Capsules By Mouth 3 times a day Diabetes mellitus with polyneuropathy Chronic GERD Chronic pain Depression with anxiety HTN (hypertension) Hypothyroidism Herpes zoster lesion BMI 26.0-26.9,adult Non-smoker Refills: 1 Pickup at [facility] New oxybutynin (oxybutynin 5 mg ER Tab) 1 Tablets By Mouth Every day Overactive bladder Refills: 1 Pickup at [facility] Changed acetaminophen-oxycodo ne (Percocet 10/ 325 oral tablet) 1 Tablets By Mouth Every 4 hours as needed for for pain Changed acetaminophen-oxycodo ne (Percocet 5 mg-325 mg oral tablet) 1 Tablets By Mouth Every 6 hours Chronic pain Pickup at [facility] Changed diazepam (Valium 2 mg Tab) 1 Tablets By Mouth 3 times a day Depression with anxiety Every 8 hours for management of anxiety Pickup at [facility] Changed diazepam (Valium 5 mg Tab) 1 Tablets By Mouth Every 8 hours as needed for Spasm Changed dicyclomine (Bentyl 10 mg Cap) 1 Capsules By Mouth 4 times a day Chronic GERD Duration: 14 Days Pickup at [facility] Changed dicyclomine (Bentyl 10 mg Cap) Changed lisinopril (lisinopril 10 mg Tab) 1 Tablets By Mouth Every day HTN (hypertension) Pickup at [facility] Changed lisinopril (lisinopril 40 mg Tab) 1 Tablets By Mouth Every day Changed ondansetron (ondansetron 4 mg Tab) 1 Tablets By Mouth Every 6 hours as needed for Nausea/Vomiting Chronic GERD Pickup at [facility] Changed ondansetron (ondansetron 4 mg Tab) 1 Tablets By Mouth Every 6 hours as needed for Nausea/Vomiting Changed trazodone (traZODONE 100 mg Tab) 1 Tablets By Mouth Once a day (at bedtime) Changed trazodone (traZODONE 100 mg Tab) 1 Tablets By Mouth Every day Depression with anxiety At bedtime Pickup at [facility] Changed trazodone (traZODONE 50 mg Tab) 0.5 Tablets By Mouth Every day Unchanged acetaminophen 325 Milligram By Mouth 3 times a day Unchanged ascorbic acid (ascorbic acid 500 mg Tab) 1 Tablets By Bhavna (more content not included)... Normal [facility] Legal Correspondence Officeo n 07-01-2023 Legal Correspondence Office [id number] .00TIFF [facility] Patient Educationon 07-01-19 24 Patient Education Endocrinology [...] Severe hypoglycemia may (more content not included)... Normal [facility] Consent for Anesthesiaon Consent for Anesthesia [id number] .00TIFF [facility] IntraOperative Documentson 0 04-17-2023 IntraOperative Documents [id number]# 1.00TIFF [facility] IntraOperative Documentson 0 04-15-2023 IntraOperative Documents [id number]# 1.00TIFF [facility] Consent for Anesthesiaon Consent for Anesthesia [id number] .00TIFF [facility] Discharge Instructionson Discharge Instructions [id number] .00TIFF [place] [facility] Main OR Intraoperative Recor don 04-14-2023 Main OR Intraoperative Record IntraOp Document Type FT Summary Primary Physician: Joaquim Rice DO Finalized Date/Time: 04/14/23 12:33:41 Pt. Name: FARTUN SCHNEIDER /Sex: 1955 Female Med Rec #: [id number] Physician: Joaquim Rice DO Financial #: [id number] Pt. Type: A Room/Bed: [place] [address] Admit/Disch: 04/11/23 10:31:47 - 04/11/23 14:30:00 Institution: [...] 2 Entry 3 Case Attendee Joaquim Rice DO, John C. Sweene, Terry T Role Performed Surgeon - Primary Anesthesiologist Test Engineering Manager - Primary Appeals Rn Time In 04/11/23 12:27:00 04/11/23 12:27:00 04/11/23 12:27:00 Time Out 04/11/23 12:43:00 04/11/23 12:45:00 04/11/23 12:45:00 Procedure HIP ARTHROGRAM(Right) HIP ARTHROGRAM(Right) HIP ARTHROGRAM(Right) Comments DR KAPLAN SUPERVISING Last Modified By: Leo Silva Terry T Sweene, Terry T 04/11/23 13:02:21 04/11/23 12:54:48 04/11/23 12:54:48 Entry 4 Entry 5 Case Attendee Marcelo Vazquez Chelsea R Role Performed Scrub - Primary Drill Operator Time In 04/11/23 12:27:00 04/11/23 12:27:00 Time [...] and tissue Entry 1 Skin Integrity Intact, [place], Warm, and Skin Abnormality No Dry Outcomes [...] Board Ri (more content not included)... Normal [facility] Outside Recordson 04-14-2023 Outside Records [id number] .00TIFF [facility] Preoperative Documentson Preoperative Documents [id number] .00TIFF [facility] Capillary Glucose POCon 03-31 Glucose [Mass/Vol] 177 mg/dL High 55-99 [facility] Comment on above: Result Comment: Lucille simons Meter Performed By: #### 2 [id number] ####[facility] [id number] [place] [address] Consent for Procedure/Surger yon 04-11-2023 Consent for Procedure/Surgery [id number]#1 .00TIFF [facility] Consent for Treatmenton 03-31 Consent for Treatment [id number]#1 .00TIFF Normal [facility] Discharge Instructionson Discharge Instructions FARTUN SCHNEIDER :1955 [...] Event Name Event Result Pharmacy Information Other: [facility] Discharge Instructions Discharge Instructions New Follow Up Appointments after Discharge Follow Up with Joaquim Rice When: Comments: Call for followup appointment Where: [place] [address] [employer] (1) Medications What How Much When Instructions [...] (Rash) penicillin (Anaphylaxis) sulfamethoxazole (unknown) Education Materials [place], [place] [facility] HIP INJECTION WITH ANESTHESIA [...] given a (more content not included)... Normal [facility] Comment on above: Result Comment: Elec tronically [...] When: Comments: Call for followup appointment Where: [address] [place], [place] [address]mar[place] [address] [facility] (1) Medications What How Much [...] Eryn Myers (more content not included)... Normal [facility] Comment on above: Result Comment: Elec tronically Signed By: Jackelin LEES, Becca Palomares\.br\Date and Time Signed: 04/11/23 13:07 EST H&P Updateon 04-11-2023 H&P Update [id number] .00TIFF Normal [facility] Inpatient Patient Summaryon 04-11-2023 Inpatient Patient Summary [address] [address] [facility] Clinical Discharge Instructions PERSON INFORMATION Name: FARTUN SCHNEIDER [facility]#:[id number] PHYSICIANS Admitting Physician: Joaquim Rice DO Attending Physician: Joaquim Rice DO PCP: RC, GENERIC Discharge Diagnosis: Comment: PATIENT EDUCATION INFORMATION Instructions: Post Op Patient Instructions - FT (CUSTOM); Henri Rice - Hip Injection with Anesthesia (Custom) Medication Leaflets: Follow up: With: Address: When: Joaquim Hasmukh [address] [place], [place] [id number] [facility] (1) Comments: Call for followup [...] Tablets By Mouth every day. Comment: Latha [facility] Main OR PACU I Recordon 03-31 Main OR PACU I Record PACU Phase I Document Type FT Summary Primary Physician: Joaquim Rice DO Finalized Date/Time: 04/11/23 13:35:33 Pt. Name: FARTUN SCHNEIDER/Sex: 1955 Female Med Rec #: [id number] Physician: Joaquim Rice DO Financial #: [id number] Pt. Type: A Room/Bed: [place] [address] Admit/Disch: 04/11/23 10:31:47 - Institution: Case Times [...] 13:35 Ramonita Gonzalez RN 04/11/23 13:35 Normal [facility] Monitor Recordon 04-11-2023 Monitor Record [id number]# 1.00TIFF Normal [facility] Monitor Record [id number]# 1.00TIFF Normal [facility] Operative Reporton Operative Report Patient: MARINA SCHNEIDER [...] analysis through our office. Joaquim Rice D.O. [facility] Comment on above: Result Comment: Elec tronically Signed By: Joaquim Rice DO\.br\Date and Time Signed: 04/11/23 12:58 EST Outpatient Surgery Discharge Instructionon 04-11-2023 Outpatient Surgery Discharge Instruction [address] [address] Patient Discharge Instructions PERSON INFORMATION Name: ZACHSHANTELLSUMEET Arnold Date of : 1955 Current Date: 04/11/2023 13:05:43 PHYSICIANS Admitting Physician: Joaquim Rice DO Discharge Diagnosis: ZACH FARTUN Arnold has been given the following list of follow-up instructions, prescriptions, and patient education materials: IF UNABLE TO CONTACT YOUR PHYSICIAN AND YOU FEEL IT IS AN EMERGENCY, GO TO THE NEAREST EMERGENCY ROOM OR CALL 911 IZACH NANCY A, have received the attached patient education materials/instruction s and have verbalized understanding: May we do a follow up call? Yes No I was present when discharge instructions were given Patient Signature Date Clinican/Nurse Signature Date Follow up: With: Address: When: Joaquim Rice [address] [place] [address] [place] [address] Business (1) Comments: Call for followup appointment Pharmacy Information: Other: [facility] You may receive a survey from [employer] asking you to rate your care experience. Your feedback is important and will help us understand what we do well and how we can improve the quality of care we provide to you, your loved ones and our community. It?s an honor to serve you. Thank you for choosing [facility] HERE ARE THE MEDICATION CHANGES THAT [...] Mouth every day. PATIENT EDUCATION INFORMATION Instructions: [place], [place] [facility] HIP INJECTION WITH ANESTHESIA [...] will be (more content not included)... Normal [facility] Patient Education - Texton 0 04-11-2023 Patient Education - Text [place], [place] [facility] HIP INJECTION WITH ANESTHESIA [...] that time. Joaquim Rice DO [facility] [address] [place] [address] Reviewed: [facility] Progress Note-Physicianon Progress Note-Physician Patient: FARTUN SCHNEIDER [...] Transfer/Discharge: Transfer/Discharge Discharge when meets criteria. Normal [facility] Comment on above: Result Comment: [...] cap(s), Oral, (more content not included)... Normal [facility] Comment on above: Result Comment: Elec tronically Signed By: Can Kaplan Jr., DO\.br\Date and Time Signed: 04/11/23 10:43 EST Insurance Correspondence Off iceon 04-10-2023 Insurance Correspondence Office [id number] .00TIFF [facility] CHEMISTRYOrdered By: SYSTEM SYSTEM on 02-13-2023 Anion gap [Moles/Vol] 10 mmol/L Normal 6 - 16 mEq/L [facility] Remisol Chloride [Moles/Vol] 112 mmol/L High 101 - 111 mmol/ L [facility] Remisol CO2 [Moles/Vol] 21 mmol/L Normal 21 - 31 mmol/L [facility] Remisol Creatinine [Mass/Vol] 0.7 mg/dL Normal 0.5 - 1.3 mg/dL [facility] Remisol GFR/1.73 sq M.predicted among non-blacks MDRD (S/P/Bld) [Vol rate/Area] 94 mL/min/1.73 m2 Normal >=59mL/min/1.73 m2 [facility] Chem S Comment on above: Interpretive Data: [...] 149 mg/dL High 55 - 99 mg/dL [facility] C POC Subsection POC Username ROJAS NELLY Invalid Interpretation Code [facility] POC Subsection Sodium [Moles/Vol] 419850014493 mmol/L Invalid Interpretation Code [facility] POC Subsection Sodium [Moles/Vol] 850223901 mmol/L Invalid Interpretation Code [facility] POC Subsection HEMATOLOGYOrdered By: Gail Felix on 02-13-2023 Erythrocyte distribution width (RBC) [Ratio] 17.0 % High 10.9 - 14.2 % FT HemeAutoSS Hematocrit (Bld) [Volume fraction] 30.8 % Low 34.0 - 46.0 % [facility] HemeAutoSS Hemoglobin (Bld) [Mass/Vol] 9.9 g/dL Low 12.0 - 16.0 gm/dL [facility] HemeAutoSS MCH (RBC) [Entitic mass] 28.3 pg Normal 27.0 - 34.0 pg [facility] HemeAutoSS MCHC (RBC) [Mass/Vol] 32.2 g/dL Normal 31.4 - 36.0 gm/dL [facility] HemeAutoSS MCV (RBC) [Entitic vol] 87.8 fL Normal 80.0 - 100.0 fL [facility] HemeAutoSS Platelet mean volume (Bld) [Entitic vol] 8.6 fL Normal 6.4 - 10.8 fL [facility] HemeAutoSS Platelets (Bld) [#/Vol] 200.0 E9/L Normal 150.0 - 500.0 E9/L [facility] HemeAutoSS RBC (Bld) [#/Vol] 3.5 E12/L Low 4.3 - 5.9 E12/L [facility] HemeAutoSS WBC corrected for nucl RBC Auto (Bld) [#/Vol] 8.3 E9/L Normal 4.0 - 11.0 E9/L [facility] HemeAutoSS No Panel InformationOrdered By: Pita Butterfield on 02-13-2023 GS Occasional epithelia l cells Occasional White Blood Cells No organisms seen. [facility] CHEMISTRYOrdered By: Lab ROP User on 12-24-2022 Glucose [Mass/Vol] 102 mg/dL High 55 - 99 mg/dL FT C POC Subsection Comment on above: Result Comment: Fausto CHAUDHARY POC Username IRINA JANE Invalid Interpretation Code FT POC Subsection Sodium [Moles/Vol] 045928089012 mmol/L Invalid Interpretation Code FT POC Subsection Sodium [Moles/Vol] 327102637 mmol/L Invalid Interpretation Code FT POC Subsection Glucose [Mass/Vol] 194 mg/dL High 55 - 99 mg/dL FTM C POC Subsection Comment on above: Result Comment: Fausto CHAUDHARY POC Username IRINA JANE Invalid Interpretation Code FT POC Subsection Sodium [Moles/Vol] 708648706153 mmol/L Invalid Interpretation Code FT POC Subsection Sodium [Moles/Vol] 408584555 mmol/L Invalid Interpretation Code FT POC Subsection Glucose [Mass/Vol] 130 mg/dL High 55 - 99 mg/dL FTM C POC Subsection Comment on above: Result Comment: Fausto CHAUDHARY POC Username ANTOLIN SHEPPARD Invalid Interpretation Code FT POC Subsection Sodium [Moles/Vol] 399404778259 mmol/L Invalid Interpretation Code FT POC Subsection Sodium [Moles/Vol] 541473120 mmol/L Invalid Interpretation Code [facility] POC Subsection CHEMISTRYOrdered By: SYSTEM SYSTEM on 12-23-2022 Anion gap [Moles/Vol] 1 mmol/L Low 6 - 16 mEq/L FT Remisol Chloride [Moles/Vol] 119 mmol/L High 101 - 111 mmol/ L FT Remisol CO2 [Moles/Vol] 25 mmol/L Normal 21 - 31 mmol/L [facility] Remisol Creatinine [Mass/Vol] 0.7 mg/dL Normal 0.5 - 1.3 mg/dL FT Remisol GFR/1.73 sq M.predicted among non-blacks MDRD (S/P/Bld) [Vol rate/Area] 94 mL/min/1.73 m2 Normal >=59mL/min/1.73 m2 [facility] Chem S Comment on above: Interpretive Data: [...] 21.5 % Low 34.0 - 46.0 % [facility] HemeAutoSS Hemoglobin (Bld) [Mass/Vol] 7.1 g/dL Low 12.0 - 16.0 gm/dL [facility] HemeAutoSS MCH (RBC) [Entitic mass] 28.2 pg Normal 27.0 - 34.0 pg [facility] HemeAutoSS MCHC (RBC) [Mass/Vol] 32.9 g/dL Normal 31.4 - 36.0 gm/dL [facility] HemeAutoSS MCV (RBC) [Entitic vol] 85.7 fL Normal 80.0 - 100.0 fL [facility] HemeAutoSS Platelet mean volume (Bld) [Entitic vol] 7.7 fL Normal 6.4 - 10.8 fL [facility] HemeAutoSS Platelets (Bld) [#/Vol] 316.0 E9/L Normal 150.0 - 500.0 E9/L [facility] HemeAutoSS RBC (Bld) [#/Vol] 2.5 E12/L Low 4.3 - 5.9 E12/L [facility] HemeAutoSS WBC corrected for nucl RBC Auto (Bld) [#/Vol] 6.3 E9/L Normal 4.0 - 11.0 E9/L [facility] HemeAutoSS CHEMISTRYOrdered By: SYSTEM SYSTEM on 12-22-2022 Anion gap [Moles/Vol] 5 mmol/L Low 6 - 16 mEq/L [facility] Remisol Chloride [Moles/Vol] 115 mmol/L High 101 - 111 mmol/ L [facility] Remisol CO2 [Moles/Vol] 23 mmol/L Normal 21 - 31 mmol/L [facility] Remisol Creatinine [Mass/Vol] 0.9 mg/dL Normal 0.5 - 1.3 mg/dL [facility] Remisol GFR/1.73 sq M.predicted among non-blacks MDRD (S/P/Bld) [Vol rate/Area] 70 mL/min/1.73 m2 Normal >=59mL/min/1.73 m2 [facility] Chem S Comment on above: Interpretive Data: [...] 28.2 pg Normal 27.0 - 34.0 pg [facility] HemeAutoSS MCHC (RBC) [Mass/Vol] 32.9 g/dL Normal 31.4 - 36.0 gm/dL [facility] HemeAutoSS MCV (RBC) [Entitic vol] 85.7 fL Normal 80.0 - 100.0 fL [facility] HemeAutoSS Platelet mean volume (Bld) [Entitic vol] 7.8 fL Normal 6.4 - 10.8 fL [facility] HemeAutoSS Platelets (Bld) [#/Vol] 337.0 E9/L Normal 150.0 - 500.0 E9/L [facility] HemeAutoSS RBC (Bld) [#/Vol] 2.5 E12/L Low 4.3 - 5.9 E12/L [facility] HemeAutoSS WBC corrected for nucl RBC Auto (Bld) [#/Vol] 7.4 E9/L Normal 4.0 - 11.0 E9/L [facility] HemeAutoSS CHEMISTRYOrdered By: SYSTEM SYSTEM on 12-21-2022 Anion gap [Moles/Vol] 7 mmol/L Normal 6 - 16 mEq/L [facility] Remisol Chloride [Moles/Vol] 112 mmol/L High 101 - 111 mmol/ L FT Remisol CO2 [Moles/Vol] 24 mmol/L Normal 21 - 31 mmol/L [facility] Remisol Creatinine [Mass/Vol] 1.1 mg/dL Normal 0.5 - 1.3 mg/dL [facility] Remisol GFR/1.73 sq M.predicted among non-blacks MDRD (S/P/Bld) [Vol rate/Area] 55 mL/min/1.73 m2 Low >=59mL/min/1.73 m2 [facility] Chem S Comment on above: Interpretive Data: C hronic kidney disease could be indicated at eGFR's of less than 60 mL/min/1.73m2. Kidney failure is indicated at less than 15 mL/min/1.73m2. Potassium [Moles/Vol] 5.2 mmol/L Normal 3.5 - 5.3 mmol/L FT Remisol Sodium [Moles/Vol] 138 mmol/L Normal 135 - 145 mmol/L FT Remisol Urea nitrogen [Mass/Vol] 22 mg/dL High [...] 10.8 fL [facility] HemeAutoSS Platelets (Bld) [#/Vol] 320.0 E9/L Normal 150.0 - 500.0 E9/L [facility] HemeAutoSS RBC (Bld) [#/Vol] 2.7 E12/L Low 4.3 - 5.9 E12/L [facility] HemeAutoSS WBC corrected for nucl RBC Auto (Bld) [#/Vol] 6.8 E9/L Normal 4.0 - 11.0 E9/L FT HemeAutoSS BLOOD BANKOrdered By: Kirstin King on 12-20-2022 ABO/Rh Interp Positive Invalid Interpretation Code FT BB Subsection ABSC Gel Interp Negative (12/20/22 12:15 PM) Normal FT BB Subsection CHEMISTRYOrdered By: SYSTEM SYSTEM on 12-20-2022 Calcium [Mass/Vol] 8.4 mg/dL Low 8.9 - 11.1 mg/dL [facility] Remisol CK [Catalytic activity/Vol] 57 [iU]/d Normal [...] Remisol CRP [Mass/Vol] 14.3 mg/dL High <=1.9mg/dL [facility] Remis ol Glucose [Mass/Vol] 166 mg/dL Normal 55 - 199 mg/dL [facility] Remisol Comment on above: Interpretive Data: I f this glucose result represents a fasting glucose, interpretation should refer to the following reference range: 55-99 mg/dL Urea nitrogen/Creatinine [Mass ratio] 20 mg/mg Normal 10 - 20 [facility] Remisol HEMATOLOGYOrdered By: Anju Marino on 12-20-2022 Band form neutrophils/100 WBC (Bld) 0 % Normal 0 - 10 % [facility] HemeManSS Basophils/100 WBC (Bld) 0 % Normal 0 - 2 % [facility] HemeManSS Basophils/Leukocytes Manual cnt (Bld) [Pure # fraction] 0.0 E9/L Normal 0.0 - 0.2 E9/L [facility] HemeManSS Eosinophils/100 WBC (Bld) 2 % Normal 0 - 8 % [facility] HemeManSS Eosinophils/Leukocyt es Manual cnt (Bld) [Pure # fraction] 0.1 E9/L Normal 0.0 - 0.5 E9/L [facility] HemeManSS Lymphocytes/100 WBC (Bld) 17 % Normal 14 - 50 % [facility] HemeManSS Lymphocytes/Leukocyt es Manual cnt (Bld) [Pure [...] 72 % Normal 36 - 75 % [facility] HemeManSS Variant lymphocytes LM Ql (Bld) 0 % Normal <=0% [facility] HemeManSS No Panel InformationOrdered By: Pita Butterfield on 12-20-2022 GS 2+ White Blood Cells 1+ Gram Positive Rods Occassional crystals seen on the slide [facility] Wound Culture 1+ Gram Positive Jyotsna s resembling diphtheroids [facility] GS 1+ White Blood Cells 2+ Gram Positive Rods Occassional crystals seen on the slide [facility] Wound Culture 1+ Gram Positive Jyotsna s resembling diphtheroids [facility] No Panel InformationOrdered By: ANGPROCESSSERVER MICROBIOLOGY on 12-19-2022 Blood Culture Charcoal No growth at 4 days. Final to follow at 7 days. [facility] CHEMISTRYOrdered By: Lab ROP User on 11-29-2022 Glucose [Mass/Vol] 209 mg/dL High 55 - 99 mg/dL F[facility] C POC Subsection Comment on above: Result Comment: Fausto rubi RN/ POC Device SN [id number] Invalid Interpretation Code [facility] POC Subsection POC User ID [id number] Invalid Interpretation Code [facility] POC Subsection POC Username STEPHANIE JANE Invalid Interpretation Code [facility] POC Subsection Glucose [Mass/Vol] 147 mg/dL High 55 - 99 mg/dL F[facility] C POC Subsection Comment on above: Result Comment: Fausto rubi RN/ POC Device SN [id number] Invalid Interpretation Code [facility] POC Subsection POC User ID [id number] Invalid Interpretation Code [facility] POC Subsection POC Username STEPHANIE JANE Invalid Interpretation Code [facility] POC Subsection CHEMISTRYOrdered By: Lab ROP User on 11-28-2022 Glucose [Mass/Vol] 141 mg/dL High 55 - 99 mg/dL F[facility] C POC Subsection Comment on above: Result Comment: Fausto rubi RN/ POC Device SN [id number] Invalid Interpretation Code [facility] POC Subsection POC User ID [id number] Invalid Interpretation Code [facility] POC Subsection POC Username JOANNA AG Invalid Interpretation Code FT POC Subsection CHEMISTRYOrdered By: SYSTEM SYSTEM on 11-28-2022 Anion gap [Moles/Vol] 7 mmol/L Normal 6 - 16 mEq/L [facility] Remisol Chloride [Moles/Vol] 112 mmol/L High 101 - 111 mmol/ L [facility] Remisol CO2 [Moles/Vol] 25 mmol/L Normal 21 - 31 mmol/L [facility] Remisol Creatinine [Mass/Vol] 0.9 mg/dL Normal 0.5 - 1.3 mg/dL [facility] Remisol GFR/1.73 sq M.predicted among non-blacks MDRD (S/P/Bld) [Vol rate/Area] 70 mL/min/1.73 m2 Normal >=59mL/min/1.73 m2 [facility] Chem S Potassium [Moles/Vol] 3.6 mmol/L Normal 3.5 - 5.3 mmol/L [facility] Remisol Sodium [Moles/Vol] 140 mmol/L Normal 135 - 145 mmol/L [facility] Remisol Urea nitrogen [Mass/Vol] 13 mg/dL Normal 5 - 21 mg/dL [facility] Remisol HEMATOLOGYOrdered By: SYSTEM SYSTEM on 11-28-2022 [...] 89.1 fL Normal 80.0 - 100.0 fL [facility] HemeAutoSS Platelet mean volume (Bld) [Entitic vol] 9.0 fL Normal 6.4 - 10.8 fL [facility] HemeAutoSS Platelets (Bld) [#/Vol] 158.0 E9/L Normal 150.0 - 500.0 E9/L [facility] HemeAutoSS RBC (Bld) [#/Vol] 2.8 E12/L Low 4.3 - 5.9 E12/L [facility] HemeAutoSS WBC corrected for nucl RBC Auto (Bld) [#/Vol] 9.1 E9/L Normal 4.0 - 11.0 E9/L [facility] CHEMISTRYOrdered By: SYSTEM SYSTEM on 11-27-2022 Anion gap [Moles/Vol] 7 mmol/L Normal 6 - 16 mEq/L [facility] Remisol Calcium [Mass/Vol] 8.1 mg/dL Low 8.9 - 11.1 mg/dL [facility] Remisol Chloride [Moles/Vol] 114 mmol/L High 101 - 111 mmol/ L [facility] Remisol CO2 [Moles/Vol] 23 mmol/L Normal 21 - 31 mmol/L [facility] Remisol Creatinine [Mass/Vol] 1.0 mg/dL Normal 0.5 - 1.3 mg/dL [facility] Remisol GFR/1.73 sq M.predicted among non-blacks MDRD (S/P/Bld) [Vol rate/Area] 61 mL/min/1.73 m2 Normal >=59mL/min/1.73 m2 [facility] Chem S Glucose [Mass/Vol] 255 mg/dL High 55 - 199 mg/dL [facility] Remisol Potassium [Moles/Vol] 3.8 mmol/L Normal 3.5 - 5.3 mmol/L [facility] Remisol Sodium [Moles/Vol] 140 mmol/L Normal 135 - 145 mmol/L [facility] Remisol Urea nitrogen [Mass/Vol] 19 mg/dL Normal 5 - 21 mg/dL [facility] Remisol Urea nitrogen/Creatinine [Mass ratio] 19 mg/mg Normal 10 - 20 [facility] Remisol HEMATOLOGYOrdered By: SYSTEM SYSTEM on 11-27-2022 [...] 133.0 E9/L Low 150.0 - 500.0 E9/L [facility] HemeAutoSS RBC (Bld) [#/Vol] 2.6 E12/L Low 4.3 - 5.9 E12/L [facility] HemeAutoSS WBC corrected for nucl RBC Auto (Bld) [#/Vol] 8.8 E9/L Normal 4.0 - 11.0 E9/L [facility]SS CHEMISTRYOrdered By: SYSTEM SYSTEM on 11-26-2022 Anion gap [Moles/Vol] 7 mmol/L Normal 6 - 16 mEq/L [facility] Remisol Calcium [Mass/Vol] 7.9 mg/dL Low 8.9 - 11.1 mg/dL [facility] Remisol Chloride [Moles/Vol] 108 mmol/L Normal 101 - 111 mmol/ L [facility] Remisol CO2 [Moles/Vol] 22 mmol/L Normal 21 - 31 mmol/L [facility] Remisol Creatinine [Mass/Vol] 1.3 mg/dL Normal 0.5 - 1.3 mg/dL [facility] Remisol GFR/1.73 sq M.predicted among non-blacks MDRD (S/P/Bld) [Vol rate/Area] 45 mL/min/1.73 m2 Low >=59mL/min/1.73 m2 [facility] Chem S Glucose [Mass/Vol] 353 mg/dL High 55 - 199 mg/dL [facility] Remisol Potassium [Moles/Vol] 4.1 mmol/L Normal 3.5 - 5.3 mmol/L [facility] Remisol Sodium [Moles/Vol] 133 mmol/L Low 135 - 145 mmol/L [facility] Remisol Urea nitrogen [Mass/Vol] 21 mg/dL Normal 5 - 21 mg/dL [facility] Remisol Urea nitrogen/Creatinine [Mass ratio] 16 mg/mg Normal 10 - 20 [facility] Remisol HEMATOLOGYOrdered By: Chrissy Bradford on 11-26-2022 Hematocrit (Bld) [Volume fraction] 23.2 % Low 34.0 - 46.0 % [facility] HemeAutoSS Hemoglobin (Bld) [Mass/Vol] 8.0 g/dL Low 12.0 - 16.0 gm/dL [facility] HemeAutoSS HEMATOLOGYOrdered By: SYSTEM SYSTEM on 11-26-2022 [...] AM) Normal Negative [facility] UA Auto SS [place].plasma/Lithi um.RBC (Bld) [Mass ratio] 0-3 /HPF Normal [...] [facility] UA Auto SS Urobilinogen Qn (U) [id number] {Papa'U}/dL Normal 0.0 - 1.0 EU/dL [facility] UA Auto SS WBC Auto Ql (U) Trace *ABN* (11/25/22 3:09 AM) Invalid Interpretation Code Negative [facility] UA Auto SS WBC LM.HPF (Urine sed) [#/Area] 0-5 /HPF Normal 0-5/HPF [facility] UA Auto SS BLOOD BANKOrdered By: David Gasca on 11-24-2022 ABO/Rh Interp Positive Invalid Interpretation Code FT BB Subsection ABSC Gel Interp Negative (11/24/22 [...] rate/Area] 55 mL/min/1.73 m2 Low >=59mL/min/1.73 m2 [facility] Chem S Globulin (S) [Mass/Vol] 3.5 g/dL [...] 10.8 fL [facility] HemeAutoSS Platelets (Bld) [#/Vol] 226.0 E9/L Normal 150.0 - 500.0 E9/L [facility] HemeAutoSS RBC (Bld) [#/Vol] 4.3 E12/L Normal 4.3 - 5.9 E12/L FT HemeAutoSS WBC corrected for nucl RBC Auto (Bld) [#/Vol] 7.8 E9/L Normal 4.0 - 11.0 E9/L FT HemeAutoSS BLOOD BANKOrdered By: Jose Martin Brar on 09-04-2022 ABO/Rh Interp Positive Invalid Interpretation Code FT BB Subsection ABSC Gel Interp Negative (09/04/22 4:10 PM) Normal FT BB Subsection CHEMISTRYOrdered By: Lab ROP User on 09-04-2022 Glucose [Mass/Vol] 241 mg/dL High 55 - 99 mg/dL FT C POC Subsection Comment on above: Result Comment: Fausto rubi RN/ POC Device SN [id number] Invalid Interpretation Code FT POC Subsection POC User ID [id number] Invalid Interpretation Code FT POC Subsection POC Username FEDERICOLILIMonica JACINTOGABBY Invalid Interpretation Code FT POC Subsection CHEMISTRYOrdered [...] FT Remisol Ethanol [Mass/Vol] mg/dL Normal <=7mg/dL [facility] R emisol GFR/1.73 sq M.predicted among non-blacks MDRD (S/P/Bld) [Vol rate/Area] 70 mL/min/1.73 m2 Normal >=59mL/min/1.73 m2 [facility] Chem S Globulin (S) [Mass/Vol] 3.3 g/dL [...] [Mass/Vol] mg/dL Normal 0.1 - 0.4 mg/dL [facility] Remisol Bilirubin.indirect [Mass or moles/Vol] Unable to Calculate mg/dL Invalid Interpretation Code 0.1 - 0.9 mg/dL [facility] [facility] Calcium [Mass/Vol] 9.1 mg/dL Normal 8.9 - 11.1 mg/dL [facility] Chloride [Moles/Vol] 107 mmol/L Normal 101 - 111 mmol/ L [facility] CO2 [Moles/Vol] 22 mmol/L Normal 21 - 31 mmol/L [facility] Creatinine [Mass/Vol] 1.0 mg/dL Normal 0.5 - 1.3 mg/dL [facility] GFR/1.73 sq M.predicted among non-blacks MDRD (S/P/Bld) [Vol rate/Area] 62 mL/min/1.73 m2 Normal >=59mL/min/1.73 m2 [facility] Chem S Globulin (S) [Mass/Vol] 3.7 g/dL Normal 1.4 - 4.0 gm/dL [facility] Remisol Glucose [Mass/Vol] 203 mg/dL High 55 - 199 mg/dL [facility] Lactate [Mass/Vol] 1.9 mmol/L Normal 0.5 - 2.2 mmol/L [facility] Potassium [Moles/Vol] 3.7 mmol/L Normal 3.5 - 5.3 mmol/L [facility] Protein [Mass/Vol] 7.6 g/dL Normal 6.0 - 7.8 gm/dL [facility] [place] Sodium [Moles/Vol] 138 mmol/L Normal 135 - 145 mmol/L [facility] Rem[facility] Troponin I.cardiac [Mass/Vol] 2.50 pg/mL Low 10.10 - 27.10 pg/mL [facility] Rem[facility] Urea nitrogen [Mass/Vol] 12 mg/dL Normal 5 - 21 mg/dL [facility] Remisol Urea nitrogen/Creatinine [Mass ratio] 12 mg/mg Normal 10 - 20 [facility]isol CHEMISTRYOrdered By: Lab ROP User on 08-09-2022 Glucose [Mass/Vol] 212 mg/dL High 55 - 99 mg/dL [facility] C POC Subsection POC Device SN [id number] Invalid Interpretation Code [facility] POC Subsection POC User ID [id number] Invalid Interpretation Code [facility] POC Subsection POC Username STEVE KIMBALL Invalid Interpretation Code [facility] POC Subsection COAGULATIONOrdered By: Vinnie Smith on 08-09-2022 aPTT Coag (PPP) [Time] 31.1 s Normal 25.1 - 36.5 second(s) [facility] Auto Coag INR Coag (PPP) [Relative time] 1.0 {INR} Invalid Interpretation Code [facility] Auto Coag PT Coag (PPP) [Time] 10.9 s Normal 9.4 - 1 2.5 second(s) [facility] Auto Coag HEMATOLOGYOrdered By: SYSTEM SYSTEM on [...] PM) Normal Negative [facility] UA Auto SS [place].plasma/Lithi um.RBC (Bld) [Mass ratio] 0-3 /HPF Normal [...] [facility] UA Auto SS Urobilinogen Qn (U) 0.2714600 {Papa'U}/dL Normal 0.0 - 1.0 EU/dL [facility] UA Auto SS WBC Auto Ql (U) Negative (08/09/22 2:08 PM) Normal Negative [facility] UA Auto SS WBC LM.HPF (Urine sed) [#/Area] 0-5 /HPF Normal 0-5/HPF [facility] UA Auto SS Progress Noteson 07-18-2022 Informatics Analyst Authentication Interface Message Text EMERGENCY TRIAGE, TREAT AND TRANSPORT (ET3) DOCUMENTATION OF TELEHEALTH VISIT Date / Time: 07/18/20225 Name: Fartun Myers NOTE: CORRECT SPELLING MAY BE ZACH : 1955 SSN: (Not on file) EMS Agency: [facility] [x] Verbal consent obtained [] [...] Completed by: Naseem Hardy MD Normal [facility] CHEMISTRYOrdered By: SYSTEM SYSTEM on 03-13-2022 [...] [Vol rate/Area] mL/min/1.73 m2 Normal >=59mL/min/1.73 m2 [facility] Chem S GFR/1.73 sq M.predicted among non-blacks MDRD (S/P/Bld) [Vol rate/Area] 55 mL/min/1.73 m2 Low >=59mL/min/1.73 m2 [facility] Chem S Globulin (S) [Mass/Vol] 3.3 g/dL Normal 1.4 - 4.0 gm/dL [facility] Glucose [Mass/Vol] 123 mg/dL Normal 55 - 199 mg/dL [facility] Lipase [Catalytic activity/Vol] 39 U/L Normal 13 - 58 unit/L [facility] Potassium [Moles/Vol] 4.2 mmol/L Normal 3.5 - 5.3 mmol/L [facility] Protein [Mass/Vol] 6.9 g/dL Normal 6.0 - 7.8 gm/dL [facility] [place] Sodium [Moles/Vol] 135 [...] PM) Normal Negative [facility] UA Auto SS [place].plasma/Lithi um.RBC (Bld) [Mass ratio] 0-3 /HPF Normal [...] Desc Clean Catch (03/13/22 6:28 PM) Normal [facility] UA Auto SS Urobilinogen Qn (U) 0.2004627 {Papa'U}/dL Normal 0.0 - 1.0 EU/dL [facility] UA Auto SS WBC Auto Ql (U) Negative (03/13/22 6:28 PM) Normal Negative [facility] UA Auto SS WBC LM.HPF (Urine sed) [#/Area] 0-5 /HPF Normal 0-5/HPF [facility] UA Auto SS CHEMISTRYOrdered By: SYSTEM SYSTEM [...] [Vol rate/Area] mL/min/1.73 m2 Normal >=59mL/min/1.73 m2 [facility] Chem S Globulin (S) [Mass/Vol] 3.3 g/dL Normal 1.4 - 4.0 gm/dL [facility] Rem[facility] Glucose [Mass/Vol] 316 mg/dL High 55 - 199 mg/dL [facility] Potassium [Moles/Vol] 3.5 mmol/L Normal 3.5 - 5.3 mmol/L [facility] Remisol Protein [Mass/Vol] 6.5 g/dL Normal 6.0 - 7.8 gm/dL [facility] Remisol Sodium [Moles/Vol] 135 mmol/L Normal 135 - 145 mmol/L [facility] Remisol Urea nitrogen [Mass/Vol] 17 mg/dL Normal 5 - 21 mg/dL [facility] Remisol Urea nitrogen/Creatinine [Mass ratio] 19 mg/mg Normal 10 - 20 [facility] Remisol HEMATOLOGYOrdered By: SYSTEM SYSTEM on 02-08-2022 [...] PM) Normal Negative [facility] UA Auto SS [place].plasma/Lithi um.RBC (Bld) [Mass ratio] 0-3 /HPF Normal [...] [facility] UA Auto SS Urobilinogen Qn (U) 0.3670980 {Papa'U}/dL Normal 0.0 - 1.0 EU/dL [facility] UA Auto SS WBC Auto Ql (U) Negative (02/08/22 9:05 PM) Normal Negative [facility] UA Auto SS WBC LM.HPF (Urine sed) [#/Area] 0-5 /HPF Normal 0-5/HPF [facility] UA Auto SS CHEMISTRYOrdered By: SYSTEM SYSTEM on 02-03-2022 Anion gap [Moles/Vol] 8 mmol/L Normal 6 - 16 mEq/L [facility] Remisol Calcium [Mass/Vol] 8.2 mg/dL Low 8.9 - 11.1 mg/dL [facility] Chloride [Moles/Vol] 111 mmol/L Normal 101 - 111 mmol/ L [facility] Rem[facility] CO2 [Moles/Vol] 22 mmol/L Normal 21 - 31 mmol/L [facility] Creatinine [Mass/Vol] 1.2 mg/dL Normal 0.5 - 1.3 mg/dL [facility] Remisol GFR/1.73 sq M.predicted among blacks MDRD (S/P/Bld) [Vol rate/Area] 54 mL/min/1.73 m2 Low >=59mL/min/1.73 m2 [facility] Chem S GFR/1.73 sq M.predicted among non-blacks MDRD (S/P/Bld) [Vol rate/Area] 45 mL/min/1.73 m2 Low >=59mL/min/1.73 m2 [facility] Chem S Glucose [Mass/Vol] 165 mg/dL Normal 55 - 199 mg/dL [facility] Remisol Potassium [Moles/Vol] 3.2 mmol/L Low 3.5 - 5.3 mmol/L [facility] Remisol Sodium [Moles/Vol] 138 mmol/L Normal 135 - 145 mmol/L [facility] Remisol Urea nitrogen [Mass/Vol] 11 mg/dL Normal 5 - 21 mg/dL [facility] Remisol Urea nitrogen/Creatinine [Mass ratio] 9 mg/mg Low 10 - 20 [facility]isol CHEMISTRYOrdered By: Lab ROP User on 02-03-2022 Glucose [Mass/Vol] 186 mg/dL High 55 - 99 mg/dL [facility] POC Subsection Comment on above: Result Comment: Fausto rubi RN/ POC Device SN [id number] Invalid Interpretation Code [facility] POC Subsection POC User ID [id number] Invalid Interpretation Code [facility] POC Subsection POC Username SELVIN BARON Invalid Interpretation Code [facility] POC Subsection HEMATOLOGYOrdered By: SYSTEM SYSTEM on 02-03-2022 Basophils/100 WBC (Bld) 0.4 % Normal 0.0 - 2.0 % FT HemeAutoSS Basophils/Leukocytes Auto (Bld) [Pure # fraction] 0.0 E9/L Normal 0.0 - 0.2 E9/L [facility] HemeAutoSS Eosinophils/100 WBC (Bld) 7.3 % Normal [...] 145.0 E9/L Low 150.0 - 500.0 E9/L [facility] [...] Comment: Fausto rubi RN/ POC Device SN [id number] Invalid Interpretation Code [facility] POC Subsection POC User ID [id number] Invalid Interpretation Code [facility] POC Subsection POC Username JERZY BARCENAS Invalid Interpretation Code [facility] POC Subsection Glucose [Mass/Vol] 176 mg/dL High 55 - 99 mg/dL [facility] C POC Subsection Comment on above: Result Comment: Lucille ronak Meter POC Device SN [id number] Invalid Interpretation Code [facility] POC Subsection POC User ID [id number] Invalid Interpretation Code [facility] POC Subsection POC Username ALEJANDRO HALARABELLA Invalid Interpretation Code [facility] POC Subsection CHEMISTRYOrdered By: SYSTEM SYSTEM on 02-02-2022 Anion gap [Moles/Vol] 7 mmol/L Normal 6 - 16 mEq/L [facility] Remisol Calcium [Mass/Vol] 7.8 mg/dL Low 8.9 - 11.1 mg/dL [facility] Chloride [Moles/Vol] 115 mmol/L High 101 - 111 mmol/ L [facility] CO2 [Moles/Vol] 22 mmol/L Normal 21 - 31 mmol/L [facility] Creatinine [Mass/Vol] 1.0 mg/dL Normal 0.5 - 1.3 mg/dL [facility] GFR/1.73 sq M.predicted among blacks MDRD (S/P/Bld) [Vol rate/Area] mL/min/1.73 m2 Normal >=59mL/min/1.73 m2 [facility] Chem S GFR/1.73 sq M.predicted among non-blacks MDRD (S/P/Bld) [Vol rate/Area] 55 mL/min/1.73 m2 Low >=59mL/min/1.73 m2 [facility] Chem S Glucose [Mass/Vol] 159 mg/dL Normal 55 - 199 mg/dL [facility] Potassium [Moles/Vol] 3.6 mmol/L Normal 3.5 - 5.3 mmol/L [facility] Remisol Sodium [Moles/Vol] 140 mmol/L Normal 135 - 145 mmol/L [facility] Urea nitrogen [Mass/Vol] 20 mg/dL Normal 5 - 21 mg/dL [facility] Remisol Urea nitrogen/Creatinine [Mass ratio] 20 mg/mg Normal 10 - 20 [facility] URINALYSISOrdered By: Gail Stock on 02-02-2022 [...] AM) Normal Negative [facility] UA Auto SS [place].plasma/Lithi um.RBC (Bld) [Mass ratio] 0-3 /HPF Normal 0-3/HPF [facility] UA Auto SS Nitrite Ql (U) Negative (02/02/22 7:06 AM) Normal Negative [facility] UA Auto SS pH (U) 6.5 *NA* (02/02/22 7:06 AM) Invalid Interpretation Code 5.0 - 9.0 [facility] UA Auto SS Protein (U) [Mass/Vol] Negative (02/02/22 7:06 AM) Normal Negative [facility] UA Auto SS Specific gravity (U) [Rel density] 1.010 *NA* (02/02/22 7:06 AM) Invalid Interpretation Code 1.005 - 1.030 [facility] UA Auto SS UA Spec Desc Clean Catch (02/02/22 7:06 AM) Normal [facility] UA Auto SS Urobilinogen Qn (U) 0.2829326 {Papa'U}/dL Normal 0.0 - 1.0 EU/dL [facility] UA Auto SS WBC Auto Ql (U) Trace *ABN* (02/02/22 7:06 AM) Invalid Interpretation Code Negative [facility] UA Auto SS WBC LM.HPF (Urine sed) [#/Area] 0-5 /HPF Normal 0-5/HPF [facility] UA Auto SS CHEMISTRYOrdered By: Lab ROP User on 02-01-2022 Glucose [Mass/Vol] 261 mg/dL High 55 - 99 mg/dL [facility] C POC Subsection Comment on above: Result Comment: Fausto rubi RN/ POC Device SN [id number] Invalid Interpretation Code [facility] POC Subsection POC User ID [id number] Invalid Interpretation Code [facility] POC Subsection POC Username HUMA JOYITLYN Invalid Interpretation Code [facility] POC Subsection CHEMISTRYOrdered By: SYSTEM SYSTEM on 02-01-2022 Anion gap [Moles/Vol] 10 mmol/L Normal 6 - 16 mEq/L [facility] Remisol Calcium [Mass/Vol] 8.2 mg/dL Low 8.9 - 11.1 mg/dL [facility]isol Chloride [Moles/Vol] 108 mmol/L Normal 101 - 111 mmol/ L [facility] CO2 [Moles/Vol] 21 mmol/L Normal 21 - 31 mmol/L [facility] Remisol GFR/1.73 sq M.predicted among blacks MDRD (S/P/Bld) [Vol rate/Area] 42 mL/min/1.73 m2 Low >=59mL/min/1.73 m2 [facility] Chem S GFR/1.73 sq M.predicted among non-blacks MDRD (S/P/Bld) [Vol rate/Area] 35 mL/min/1.73 m2 Low >=59mL/min/1.73 m2 [facility] Chem S Glucose [Mass/Vol] 128 mg/dL Normal 55 - 199 mg/dL [facility] Magnesium [Mass/Vol] 2.0 mg/dL Normal 1.3 - 2.4 mg/dL [facility] Sodium [Moles/Vol] 136 mmol/L Normal 135 - 145 mmol/L [facility] Urea nitrogen [Mass/Vol] 31 mg/dL High 5 - 21 mg/dL [facility] Rem[facility] Urea nitrogen/Creatinine [Mass ratio] 21 mg/mg [...] 10.8 E9/L Normal 4.0 - 11.0 E9/L [facility] HemeAutoSS CHEMISTRYOrdered By: SYSTEM SYSTEM on 01-31-2022 [...] rate/Area] 27 mL/min/1.73 m2 Low >=59mL/min/1.73 m2 [facility] Chem S GFR/1.73 sq M.predicted among non-blacks MDRD (S/P/Bld) [Vol rate/Area] 22 mL/min/1.73 m2 Low >=59mL/min/1.73 m2 [facility] Chem S Globulin (S) [Mass/Vol] 3.6 g/dL [...] g/dL Normal 6.0 - 7.8 gm/dL [facility] [place]isol Sodium [Moles/Vol] 135 [...] Result Comment: Fausto CHAUDHARY POC Device SN [id number] Invalid Interpretation Code [facility] POC Subsection POC User ID [id number] Invalid Interpretation Code [facility] POC Subsection POC Username GAGANDEEP HER Invalid Interpretation Code [facility] POC Subsection Glucose [Mass/Vol] 265 mg/dL High 55 - 99 mg/dL [facility] C POC Subsection Comment on above: Result Comment: Fausto CHAUDHARY POC Device SN [id number] Invalid Interpretation Code [facility] POC Subsection POC User ID [id number] Invalid Interpretation Code [facility] POC Subsection POC Username GAGANDEEP HER Invalid Interpretation Code [facility] POC Subsection CHEMISTRYOrdered By: SYSTEM SYSTEM on 01-30-2022 Anion gap [Moles/Vol] 12 mmol/L Normal 6 - 16 mEq/L [facility] Remisol Calcium [Mass/Vol] 8.8 mg/dL Low 8.9 - 11.1 mg/dL [facility] Remisol Chloride [Moles/Vol] 106 mmol/L Normal 101 - 111 mmol/ L [facility] Remisol CO2 [Moles/Vol] 24 mmol/L Normal 21 - 31 mmol/L [facility] Remisol Creatinine [Mass/Vol] 1.1 mg/dL Normal 0.5 - 1.3 mg/dL [facility] Remisol GFR/1.73 sq M.predicted among blacks MDRD (S/P/Bld) [Vol rate/Area] 60 mL/min/1.73 m2 Normal >=59mL/min/1.73 m2 [facility] Chem S GFR/1.73 sq M.predicted among non-blacks MDRD (S/P/Bld) [Vol rate/Area] 50 mL/min/1.73 m2 Low >=59mL/min/1.73 m2 [facility] Chem S Glucose [Mass/Vol] 255 mg/dL High 55 - 199 mg/dL [facility] Remisol Potassium [Moles/Vol] 3.5 mmol/L Normal 3.5 - 5.3 mmol/L [facility] Remisol Sodium [Moles/Vol] 138 mmol/L Normal 135 - 145 mmol/L [facility] Remisol Urea nitrogen [Mass/Vol] 19 mg/dL Normal 5 - 21 mg/dL [facility] Remisol Urea nitrogen/Creatinine [Mass ratio] 17 mg/mg Normal 10 - 20 [facility] Remisol CHEMISTRYOrdered By: SYSTEM SYSTEM on 01-29-2022 Anion gap [Moles/Vol] 14 mmol/L Normal 6 - 16 mEq/L [facility] Remisol Calcium [Mass/Vol] 9.1 mg/dL Normal 8.9 - 11.1 mg/dL [facility] Chloride [Moles/Vol] 103 mmol/L Normal 101 - 111 mmol/ L [facility] CO2 [Moles/Vol] 24 mmol/L Normal 21 - 31 mmol/L [facility] Remisol Creatinine [Mass/Vol] 1.1 mg/dL Normal 0.5 - 1.3 mg/dL [facility] Remisol GFR/1.73 sq M.predicted among blacks MDRD (S/P/Bld) [Vol rate/Area] 60 mL/min/1.73 m2 Normal >=59mL/min/1.73 m2 [facility] Chem S GFR/1.73 sq M.predicted among non-blacks MDRD (S/P/Bld) [Vol rate/Area] 50 mL/min/1.73 m2 Low >=59mL/min/1.73 m2 [facility] Chem S Glucose [Mass/Vol] 245 mg/dL High 55 - 199 mg/dL [facility] Remisol Potassium [Moles/Vol] 3.5 mmol/L Normal 3.5 - 5.3 mmol/L [facility]isol Sodium [Moles/Vol] 137 mmol/L Normal 135 - 145 mmol/L [facility] Urea nitrogen [Mass/Vol] 18 mg/dL Normal 5 - 21 mg/dL [facility] Urea nitrogen/Creatinine [Mass ratio] 16 mg/mg Normal 10 - 20 [facility] Anion gap [Moles/Vol] 13 mmol/L Normal 6 - 16 mEq/L [facility] Calcium [Mass/Vol] 9.0 mg/dL Normal 8.9 - 11.1 mg/dL [facility] Chloride [Moles/Vol] 107 mmol/L Normal 101 - 111 mmol/ L [facility] CO2 [Moles/Vol] 23 mmol/L Normal 21 - 31 mmol/L [facility] Creatinine [Mass/Vol] 1.2 mg/dL Normal 0.5 - 1.3 mg/dL [facility] Remisol GFR/1.73 sq M.predicted among blacks MDRD (S/P/Bld) [Vol rate/Area] 54 mL/min/1.73 m2 Low >=59mL/min/1.73 m2 [facility] Chem S GFR/1.73 sq M.predicted among non-blacks MDRD (S/P/Bld) [Vol rate/Area] 45 mL/min/1.73 m2 Low >=59mL/min/1.73 m2 [facility] Chem S Glucose [Mass/Vol] 151 mg/dL Normal 55 - 199 mg/dL [facility] Remisol Potassium [Moles/Vol] 3.7 mmol/L Normal 3.5 - 5.3 mmol/L [facility] Remisol Sodium [Moles/Vol] 139 mmol/L Normal 135 - 145 mmol/L [facility] Remisol Urea nitrogen [Mass/Vol] 15 mg/dL Normal 5 - 21 mg/dL [facility] Remisol Urea nitrogen/Creatinine [Mass ratio] 12 mg/mg Normal 10 - 20 [facility] Remisol CHEMISTRYOrdered By: Lab ROP User on 01-29-2022 Glucose [Mass/Vol] 248 mg/dL High 55 - 99 mg/dL [facility] C POC Subsection Comment on above: Result Comment: Fausto rubi RN/ POC Device SN [id number] Invalid Interpretation Code [facility] POC Subsection POC User ID [id number] Invalid Interpretation Code [facility] POC Subsection POC Username ESTEFANY GUZMAN Invalid Interpretation Code [facility] POC Subsection CHEMISTRYOrdered By: SYSTEM SYSTEM on 01-28-2022 Albumin [Mass/Vol] 3.5 g/dL Normal 3.3 - 5.0 gm/dL [facility] Remisol Albumin/Globulin [Mass ratio] 1.0 {ratio} Low [...] Test Not Applicable (01/28/22 1:53 PM) Normal [facility] Resp Auto SS Drawn by lab Invalid Interpretation Code [facility] Resp Auto SS FIO2 BG 21 Invalid Interpretation Code FT Resp Auto SS pCO2 Randall 36.7 mm[Hg] Low 38.0 - 50.0 mmHg [facility] Re sp Auto SS pH Randall 7.288 Low 7.320 - 7.430 [facility] Resp Auto SS Sample Site OTHER (01/28/22 1:53 PM) Normal [facility] Resp Auto SS Sample Type Venous Draw [...] PM) Normal Negative [facility] UA Auto SS [place].plasma/Lithi um.RBC (Bld) [Mass ratio] 0-3 /HPF Normal [...] PM) Invalid Interpretation Code 1.005 - 1.030 [facility] UA Auto SS UA Spec Desc Clean Catch (01/28/22 2:37 PM) Normal [facility] UA Auto SS Urobilinogen Qn (U) 0.5615823 {Papa'U}/dL Normal 0.0 - 1.0 EU/dL [facility] UA Auto SS WBC Auto Ql (U) Negative (01/28/22 2:37 PM) Normal Negative [facility] UA Auto SS WBC LM.HPF (Urine sed) [#/Area] 0-5 /HPF Normal 0-5/HPF [facility] UA Auto SS CHEMISTRYOrdered By: Lab ROP User on 01-27-2022 Glucose [Mass/Vol] 187 mg/dL High 55 - 99 mg/dL [facility] C POC Subsection Comment on above: Result Comment: Noti greyson RN/ POC Device SN [id number] Invalid Interpretation Code [facility] POC Subsection POC User ID [id number] Invalid Interpretation Code [facility] POC Subsection POC Username ALEKSANDAR KING Invalid Interpretation Code [facility] POC Subsection CHEMISTRYOrdered By: SYSTEM SYSTEM on [...] rate/Area] 60 mL/min/1.73 m2 Normal >=59mL/min/1.73 m2 [facility] Chem S GFR/1.73 sq M.predicted among non-blacks MDRD (S/P/Bld) [Vol rate/Area] 50 mL/min/1.73 m2 Low >=59mL/min/1.73 m2 [facility] Chem S Globulin (S) [Mass/Vol] 4.3 g/dL [...] g/dL High 6.0 - 7.8 gm/dL [facility] Remisol Sodium [Moles/Vol] 134 mmol/L Low 135 - 145 mmol/L [facility] Urea nitrogen [Mass/Vol] 18 mg/dL Normal 5 - 21 mg/dL [facility] Urea nitrogen/Creatinine [Mass ratio] 16 mg/mg Normal 10 - 20 [facility] COAGULATIONOrdered By: Bridger Thomas on 01-27-2022 [...] PM) Normal Negative [facility] UA Auto SS [place].plasma/Lithi um.RBC (Bld) [Mass ratio] 0-3 /HPF Normal [...] Desc Clean Catch (01/27/22 3:30 PM) Normal [facility] UA Auto SS Urobilinogen Qn (U) 0.0342986 {Papa'U}/dL Normal 0.0 - 1.0 EU/dL [facility] UA Auto SS WBC Auto Ql (U) Negative (01/27/22 3:30 PM) Normal Negative [facility] UA Auto SS WBC LM.HPF (Urine sed) [#/Area] 0-5 /HPF Normal 0-5/HPF [facility] UA Auto SS CHEMISTRYOrdered By: Lab ROP User on 11-17-2021 Glucose [Mass/Vol] 82 mg/dL Normal 55 - 99 mg/dL [facility] C POC Subsection Comment on above: Result Comment: Lucille ronak Meter POC Device SN [id number] Invalid Interpretation Code [facility] POC Subsection POC User ID [id number] Invalid Interpretation Code [facility] POC Subsection POC Username BHARGAV CANO Invalid Interpretation Code [facility] POC Subsection Glucose [Mass/Vol] 126 mg/dL High 55 - 99 mg/dL [facility] C POC Subsection POC Device SN [id number] Invalid Interpretation Code [facility] POC Subsection POC User ID [id number] Invalid Interpretation Code [facility] POC Subsection POC Username AGUSTIN GARSIA Invalid Interpretation Code [facility] POC Subsection CHEMISTRYOrdered By: SYSTEM SYSTEM on [...] rate/Area] 60 mL/min/1.73 m2 Normal >=59mL/min/1.73 m2 [facility] Chem S GFR/1.73 sq M.predicted among non-blacks MDRD (S/P/Bld) [Vol rate/Area] 50 mL/min/1.73 m2 Low >=59mL/min/1.73 m2 [facility] Chem S Globulin (S) [Mass/Vol] 3.5 g/dL [...] PM) Normal Negative [facility] UA Auto SS [place].plasma/Lithi um.RBC (Bld) [Mass ratio] 0-3 /HPF Normal [...] [facility] UA Auto SS Urobilinogen Qn (U) 0.8779258 {Papa'U}/dL Normal 0.0 - 1.0 EU/dL [facility] UA Auto SS WBC Auto Ql (U) Negative (11/17/21 7:06 PM) Normal Negative [facility] UA Auto SS WBC LM.HPF (Urine sed) [#/Area] 0-5 /HPF Normal 0-5/HPF [facility] UA Auto SS Vital Signs Date Time Vital Sign Value Performing Clinician Facility 03-04-2024 11:40-0500 Blood Pressure Location [facility] 03-04-2024 11:40-0500 Diastolic blood pressure 79 mm[Hg] [facility] 03-04-2024 11:40-0500 Heart rate 65 /min Marcelo [facility] 03-04-2024 11:40-0500 SaO2% (BldA) [Mass fraction] 96 % [facility] 03-04-2024 11:40-0500 Systolic blood pressure 122 mm[Hg] [facility] 10-01-2024 16:58-0400 Blood Pressure Location Marcelo Link [facility] 12-30-2023 16:58-0400 Diastolic blood pressure 64 mm[Hg] Marcelo Link [facility] 12-30-2023 16:58-0400 Heart rate 60 /min Marcelo Link [facility] 12-30-2023 16:58-0400 SaO2% (BldA) [Mass fraction] 99 % Marcelo Link [facility] 12-30-2023 16:58-0400 Systolic blood pressure 106 mm[Hg] Marcelo Link [facility] 11-28-2023 10:48-0400 Blood Pressure Location Marcelo Link [facility] 11-28-2023 10:48-0400 Diastolic blood pressure 64 mm[Hg] [facility] 11-28-2023 10:48-0400 Heart rate 66 /min Marcelo Link [facility] 11-28-2023 10:48-0400 SaO2% (BldA) [Mass fraction] 95 % Marcelo Link [facility] 11-28-2023 10:48-0400 Systolic blood pressure 112 mm[Hg] Marcelo Link [facility] 11-06-2023 14:37-0400 Blood Pressure Location Marcelo Link [facility] 11-06-2023 14:37-0400 Diastolic blood pressure 70 mm[Hg] Marcelo Link [facility] 11-06-2023 14:37-0400 Heart rate 64 /min Marcelo Link [facility] 11-06-2023 14:37-0400 SaO2% (BldA) [Mass fraction] 99 % Marcelo Link [facility] 11-06-2023 14:37-0400 Systolic blood pressure 106 mm[Hg] Marcelo Link [facility] 09-18-2023 14:35-0400 Blood Pressure Location Marcelo Link [facility] 09-18-2023 14:35-0400 Diastolic blood pressure 76 mm[Hg] Marcelo Link [facility] 09-18-2023 14:35-0400 Heart rate 64 /min Marcelo Link [facility] 09-18-2023 14:35-0400 SaO2% (BldA) [Mass fraction] 98 % Marcelo Link [facility] 09-18-2023 14:35-0400 Systolic blood pressure 124 mm[Hg] Marcelo Link [facility] 08-07-2023 11:41-0400 Blood Pressure Location Marcelo Link [facility] 08-07-2023 11:41-0400 Diastolic blood pressure 62 mm[Hg] Marcelo Link [facility] 08-07-2023 11:41-0400 Heart rate 69 /min Marcelo Link [facility] 08-07-2023 11:41-0400 SaO2% (BldA) [Mass fraction] 97 % Marcelo Link [facility] 08-07-2023 11:41-0400 Systolic blood pressure 118 mm[Hg] Marcelo Link [facility] 07-01-2023 14:04-0400 Blood Pressure Location Marcelo Link [facility] 07-01-2023 14:04-0400 Diastolic blood pressure 78 mm[Hg] Marcelo Link [facility] 07-01-2023 14:04-0400 Heart rate 78 /min Marcelo Link [facility] 07-01-2023 14:04-0400 SaO2% (BldA) [Mass fraction] 97 % Marcelo Link [facility] 07-01-2023 14:04-0400 Systolic blood pressure 136 mm[Hg] Marcelo Link [facility] 03-03-2023 13:45-0500 Body height 162.56 cm Ashish Chester [facility] 03-03-2023 13:45-0500 Body temperature 97.5 [degF] Ashish Chester Other [facility] 03-03-2023 13:45-0500 Diastolic blood pressure 55 mm[Hg] Ashish Chester Other [facility] 03-03-2023 13:45-0500 Systolic blood pressure 112 mm[Hg] Ashish Chester Other [facility] 02-13-2023 09:43-0500 Diastolic blood pressure 58 mm[Hg] Joaquim Rice [facility] 02-13-2023 09:43-0500 Heart rate 60 /min Joaquim Rice [facility] 02-13-2023 09:43-0500 Respiratory rate 16 /min Joaquim Rice [facility] 02-13-2023 09:43-0500 SaO2% (BldA) [Mass fraction] 99 % Joaquim Rice [facility] 02-13-2023 09:43-0500 Systolic blood pressure 124 mm[Hg] Joaquim Rice [facility] 02-13-2023 08:39-0500 Heart rate 57 /min Joaquim Rice [facility] 02-13-2023 08:39-0500 SaO2% (BldA) [Mass fraction] 98 % Joaquim Rice [facility] 02-13-2023 08:37-0500 Respiratory rate 18 /min Joaquim Rice [facility] 02-13-2023 08:37-0500 Diastolic blood pressure 73 mm[Hg] Joaquim Rice [facility] 02-13-2023 08:37-0500 Mean blood pressure 94 mm[Hg] Joaquim Rice [facility] 02-13-2023 08:37-0500 Systolic blood pressure 136 mm[Hg] Joaquim Rice [facility] 02-13-2023 08:30-0500 Blood Pressure Location Joaquim Rice [facility] 02-13-2023 08:30-0500 Body temperature 98.06 [degF] Joaquim Rice [facility] 02-13-2023 08:30-0500 Diastolic blood pressure 53 mm[Hg] Joaquim Rice [facility] 02-13-2023 08:30-0500 Heart rate 61 /min Joaquim Rice [facility] 02-13-2023 08:30-0500 Mean blood pressure 78 mm[Hg] Joaquim Rice [facility] 02-13-2023 08:30-0500 Respiratory rate 11 /min Joaquim Rice [facility] 02-13-2023 08:30-0500 SaO2% (BldA) [Mass fraction] 97 % Joaquim Rice [facility] 02-13-2023 08:30-0500 Systolic blood pressure 129 mm[Hg] Joaquim Rice [facility] 02-13-2023 08:20-0500 Blood Pressure Location Joaquim Rice [facility] 02-13-2023 08:20-0500 Mean blood pressure 76 mm[Hg] Joaquim Rice [facility] 02-13-2023 08:20-0500 Respiratory rate 9 /min Joaquim Rice [facility] 02-13-2023 08:15-0500 Blood Pressure Location Joaquim Rice [facility] 02-13-2023 08:15-0500 Mean blood pressure 76 mm[Hg] Joaquim Rice [facility] 02-13-2023 08:01-0500 Body temperature 97.16 [degF] Joaquim Rice [facility] 02-13-2023 07:55-0500 Respiratory rate 12 /min Joaquim Rice [facility] 02-13-2023 06:10-0500 Mean blood pressure 85 mm[Hg] Joaquim Rice [facility] 02-13-2023 06:09-0500 BP/Pulse Patient Position Joaquim Rice [facility] 02-13-2023 06:09-0500 Mean blood pressure 87 mm[Hg] Joaquim Rice [facility] 02-13-2023 06:09-0500 Heart rate 60 /min Joaquim Rice [facility] 02-13-2023 06:08-0500 Body temperature 97.7 [degF] Joaquim Rice [facility] 02-03-2023 14:15-0500 Body height 162.56 cm Ashish Chester Other [facility] 02-03-2023 14:15-0500 Body temperature 97.4 [degF] Ashish Chester Other [facility] 02-03-2023 14:15-0500 Diastolic blood pressure 58 mm[Hg] Ashish Chester Other [facility] 02-03-2023 14:15-0500 Systolic blood pressure 103 mm[Hg] Ashish Chester Other [facility] 12-24-2022 18:02-0400 Hourly Rounding Joaquim Rice [facility] 12-24-2022 18:02-0400 Promise to Return Joaquim Rice [facility] 12-24-2022 18:00-0400 Blood Pressure Location Joaquim Rice [facility] 12-24-2022 18:00-0400 Body temperature 98.06 [degF] Joaquim Rice [facility] 12-24-2022 18:00-0400 Diastolic blood pressure 69 mm[Hg] Joaquim Rice [facility] 12-24-2022 18:00-0400 Heart rate 95 /min Joaquim Rice [facility] 12-24-2022 18:00-0400 Mean blood pressure 82 mm[Hg] Joaquim Rice [facility] 12-24-2022 18:00-0400 Respiratory rate 18 /min Joaquim Rice [facility] 12-24-2022 18:00-0400 SaO2% (BldA) [Mass fraction] 97 % Joaquim Rice [facility] 12-24-2022 18:00-0400 Systolic blood pressure 108 mm[Hg] Joaquim Rice [facility] 12-24-2022 17:41-0400 Hourly Rounding Joaquim Rice [facility] 12-24-2022 17:41-0400 Promise to Return Joaquim Rice [facility] 12-24-2022 16:00-0400 Hourly Rounding Joaquim Rice [facility] 12-24-2022 16:00-0400 Promise to Return Joaquim Rice [facility] 12-24-2022 15:43-0400 Heart rate 67 /min Joaquim Rice [facility] 12-24-2022 15:43-0400 SaO2% (BldA) [Mass fraction] 96 % Joaquim Rice [facility] 12-24-2022 15:42-0400 Body temperature 97.7 [degF] Joaquim Rice [facility] 12-24-2022 15:42-0400 Diastolic blood pressure 67 mm[Hg] Joaquim Brown [facility] 12-24-2022 15:42-0400 Mean blood pressure 87 mm[Hg] Joaquim Rice [facility] 12-24-2022 15:42-0400 Systolic blood pressure 127 mm[Hg] Joaquim Brown [facility] 12-24-2022 13:06-0400 gluc 194 mg/dL Joaquim Rice [facility] 12-24-2022 11:37-0400 Heart rate 67 /min Joaquim Rice [facility] 12-24-2022 11:37-0400 SaO2% (BldA) [Mass fraction] 95 % Joaquim Rice [facility] 12-24-2022 11:37-0400 Diastolic blood pressure 49 mm[Hg] Joaquim Rice [facility] 12-24-2022 11:37-0400 Mean blood pressure 67 mm[Hg] Joaquim Rice [facility] 12-24-2022 11:37-0400 Systolic blood pressure 103 mm[Hg] Joaquim Rice [facility] 12-24-2022 11:37-0400 Body temperature 97.7 [degF] Joaquim Rice [facility] 12-24-2022 07:39-0400 Mean blood pressure 76 mm[Hg] Joaquim Rice [facility] 12-24-2022 07:37-0400 Body temperature 97.7 [degF] Joaquim Rice [facility] 12-24-2022 02:43-0400 Respiratory rate 16 /min Joaquim Rice [facility] 12-24-2022 00:01-0400 Body temperature 99.68 [degF] Joaquim Rice [facility] 12-24-2022 00:01-0400 Respiratory rate 16 /min Joaquim Rice [facility] 12-23-2022 12:00-0400 Blood Pressure Location Joaquim Rice [facility] 12-23-2022 12:00-0400 Body temperature 97.34 [degF] Joaquim Rice [facility] 12-23-2022 12:00-0400 Heart rate 62 /min Joaquim [employer] [facility] 12-22-2022 23:45-0400 gluc 123 mg/dL Joaquim [employer] [facility] 12-22-2022 20:10-0400 Blood Pressure Location Joaquim [employer] [facility] 12-22-2022 20:10-0400 Mean blood pressure 88 mm[Hg] Joaquim [employer] [facility] 12-22-2022 12:37-0400 gluc 126 mg/dL Joaquim [employer] [facility] 12-21-2022 20:00-0400 Mean blood pressure 67 mm[Hg] Joaquim [employer] [facility] 12-20-2022 19:15-0400 Respiratory rate 16 /min Joaquim [employer] [facility] 12-20-2022 19:00-0400 Respiratory rate 18 /min Joaquim [employer] [facility] 12-20-2022 18:45-0400 Respiratory rate 11 /min Joaquim [employer] [facility] 12-20-2022 16:21-0400 Heart rate 75 /min Joaquim [employer] [facility] 12-19-2022 17:25-0400 Heart rate 66 /min Joaquim [employer] [facility] 12-19-2022 16:52-0400 Diastolic blood pressure 46 mm[Hg] Joaquim [employer] [facility] 12-19-2022 16:52-0400 Systolic blood pressure 105 mm[Hg] Joaquim Rice [facility] 11-29-2022 12:19-0400 Hourly Rounding Reymundo JULIAN [facility] 11-29-2022 12:19-0400 Promise to Return Reymundo JULIAN [facility] 11-29-2022 11:43-0400 Hourly Rounding Reymundo JULIAN [facility] 11-29-2022 11:43-0400 Promise to Return Reymundo JULIAN [facility] 11-29-2022 11:25-0400 Heart rate 79 /min Reymundo JULIAN [facility] 11-29-2022 11:25-0400 SaO2% (BldA) [Mass fraction] 92 % Reymundo JULIAN [facility] 11-29-2022 11:22-0400 Diastolic blood pressure 73 mm[Hg] Reymundo JULIAN [facility] 11-29-2022 11:22-0400 Mean blood pressure 97 mm[Hg] Reymundo JULIAN [facility] 11-29-2022 11:22-0400 Systolic blood pressure 143 mm[Hg] Reymundo JULIAN [facility] 11-29-2022 11:22-0400 Body temperature 98.06 [degF] Reymundo JULIAN [facility] 11-29-2022 10:33-0400 Hourly Rounding Reymundo JULIAN [facility] 11-29-2022 10:33-0400 Promise to Return Reymundo JULIAN [facility] 11-29-2022 09:40-0400 Diastolic blood pressure 75 mm[Hg] Reymundo JULIAN [facility] 11-29-2022 09:40-0400 Systolic blood pressure 160 mm[Hg] Reymundo JULIAN [facility] 11-29-2022 08:17-0400 Heart rate 83 /min Reymundo JULIAN [facility] 11-29-2022 08:17-0400 SaO2% (BldA) [Mass fraction] 93 % Reymundo JULIAN [facility] 11-29-2022 08:17-0400 Diastolic blood pressure 75 mm[Hg] Reymundo JULIAN [facility] 11-29-2022 08:17-0400 Mean blood pressure 104 mm[Hg] Reymundo JULIAN [facility] 11-29-2022 08:17-0400 Systolic blood pressure 160 mm[Hg] Reymundo JULIAN [facility] 11-29-2022 08:17-0400 Body temperature 97.88 [degF] Reymundo JULIAN [facility] 11-28-2022 23:45-0400 Blood Pressure Location Reymundo JULIAN [facility] 11-28-2022 23:45-0400 Body temperature 97.7 [degF] Reymundo JULIAN [facility] 11-28-2022 23:45-0400 Heart rate 68 /min Reymundo JULIAN [facility] 11-28-2022 23:45-0400 SaO2% (BldA) [Mass fraction] 95 % Reymundo JULIAN [facility] 11-28-2022 15:54-0400 Mean blood pressure 93 mm[Hg] Reymundo JULIAN [facility] 11-28-2022 15:54-0400 Body temperature 100.22 [degF] Reymundo JULIAN [facility] 11-28-2022 08:40-0400 Blood Pressure Location Reymundo JULIAN [facility] 11-28-2022 08:40-0400 Body temperature 97.88 [degF] Reymundo JULIAN [facility] 11-28-2022 08:40-0400 Mean blood pressure 86 mm[Hg] Reymundo JULIAN [facility] 11-28-2022 08:40-0400 Respiratory rate 16 /min Reymundo JULIAN [facility] 11-28-2022 00:15-0400 Blood Pressure Location Reymundo JULIAN [facility] 11-28-2022 00:15-0400 Respiratory rate 16 /min Reymundo JULIAN [facility] 11-27-2022 16:43-0400 Mean blood pressure 90 mm[Hg] Reymundo JULIAN [facility] 11-27-2022 11:40-0400 Mean blood pressure 79 mm[Hg] Reymundo JULIAN [facility] 11-27-2022 01:48-0400 Heart rate 18 /min Reymundo JULIAN [facility] 11-26-2022 16:27-0400 Heart rate 78 /min Reymundo JULIAN [facility] 11-26-2022 16:27-0400 Respiratory rate 18 /min Reymundo JULIAN [facility] 11-26-2022 11:43-0400 Heart rate 80 /min Reymundo JULIAN [facility] 11-25-2022 17:25-0400 Respiratory rate 13 /min Reymundo JULIAN [facility] 11-25-2022 17:00-0400 Respiratory rate 11 /min Reymundo JULIAN [facility] 11-25-2022 05:43-0400 gluc 98 mg/dL Reymundo JULIAN [facility] 11-24-2022 19:24-0400 gluc 115 mg/dL Reymundo JULIAN [facility] 11-24-2022 19:00-0400 Heart rate 70 /min Reymundo JULIAN [facility] 11-24-2022 12:25-0400 gluc 149 mg/dL Reymundo JULIAN [facility] 10-02-2022 15:23-0400 Body temperature 97.88 [degF] Raul Arnold [facility] 10-02-2022 15:23-0400 Diastolic blood pressure 80 mm[Hg] Raul Arnold [facility] 10-02-2022 15:23-0400 Heart rate 79 /min Raul Arnold [facility] 10-02-2022 15:23-0400 Respiratory rate 16 /min Raul Arnold [facility] 10-02-2022 15:23-0400 SaO2% (BldA) [Mass fraction] 100 % Raul Arnold [facility] 10-02-2022 15:23-0400 Systolic blood pressure 133 mm[Hg] Raul Clayton [facility] 09-04-2022 21:30-0400 Diastolic blood pressure 72 mm[Hg] Hari Michelle [facility] 09-04-2022 21:30-0400 Heart rate 60 /min Hari Michelle [facility] 09-04-2022 21:30-0400 Mean blood pressure 100 mm[Hg] Hari Michelle [facility] 09-04-2022 21:30-0400 Respiratory rate 15 /min Hari Michelle [facility] 09-04-2022 21:30-0400 SaO2% (BldA) [Mass fraction] 97 % Hari Michelle [facility] 09-04-2022 21:30-0400 Systolic blood pressure 155 mm[Hg] Hari Michelle [facility] 09-04-2022 20:40-0400 Body temperature 97.52 [degF] Hari Michelle [facility] 09-04-2022 20:40-0400 Diastolic blood pressure 80 mm[Hg] Hari Michelle [facility] 09-04-2022 20:40-0400 Heart rate 67 /min Hari Michelle [facility] 09-04-2022 20:40-0400 Respiratory rate 17 /min Hari Michelle [facility] 09-04-2022 20:40-0400 SaO2% (BldA) [Mass fraction] 95 % Hari Michelle [facility] 09-04-2022 20:40-0400 Systolic blood pressure 176 mm[Hg] Hari Michelle [facility] 09-04-2022 20:25-0400 Body temperature 97.52 [degF] Hari Michelle [facility] 09-04-2022 20:25-0400 Diastolic blood pressure 75 mm[Hg] Marcelo Link [facility] 09-04-2022 20:25-0400 Heart rate 62 /min Hari Michelle [facility] 09-04-2022 20:25-0400 Respiratory rate 18 /min Hari Michelle [facility] 09-04-2022 20:25-0400 SaO2% (BldA) [Mass fraction] 99 % Hari Michelle [facility] 09-04-2022 20:25-0400 Systolic blood pressure 188 mm[Hg] Hari Michelle [facility] 09-04-2022 19:04-0400 Body temperature 97.88 [degF] Marcelo Link [facility] 09-04-2022 19:04-0400 Diastolic blood pressure 58 mm[Hg] Marcelo Link [facility] 09-04-2022 19:04-0400 Heart rate 63 /min Marcelo Link [facility] 09-04-2022 19:04-0400 Respiratory rate 15 /min Marcelo Link [facility] 09-04-2022 19:04-0400 SaO2% (BldA) [Mass fraction] 98 % Marcelo Link [facility] 09-04-2022 19:04-0400 Systolic blood pressure 139 mm[Hg] Marcelo Link [facility] 09-04-2022 18:32-0400 Body temperature 98.06 [degF] Marcelo Link [facility] 09-04-2022 18:32-0400 Diastolic blood pressure 64 mm[Hg] Marcelo Link [facility] 09-04-2022 18:32-0400 Heart rate 62 /min Marcelo Link [facility] 09-04-2022 18:32-0400 Mean blood pressure 92 mm[Hg] Marcelo Link [facility] 09-04-2022 18:32-0400 Respiratory rate 16 /min Marcelo Link [facility] 09-04-2022 18:32-0400 SaO2% (BldA) [Mass fraction] 97 % Marcelo Link [facility] 09-04-2022 18:32-0400 Systolic blood pressure 149 mm[Hg] Marcelo Link [facility] 09-04-2022 17:15-0400 Body temperature 97.7 [degF] Marcelo Link [facility] 09-04-2022 17:00-0400 Heart rate 64 /min Marcelo Link [facility] 09-04-2022 17:00-0400 Mean blood pressure 96 mm[Hg] Marcelo Link [facility] 09-04-2022 17:00-0400 Systolic blood pressure 137 mm[Hg] Marcelo Link [facility] 09-04-2022 15:10-0400 gluc 241 mg/dL Marcelo Link [facility] 09-04-2022 15:10-0400 gluc Marcelo Link [facility] 09-04-2022 15:00-0400 Hourly Rounding Marcelo Link [facility] 09-04-2022 15:00-0400 Promise to Return Marcelo Link [facility] 08-09-2022 14:34-0400 Body temperature 97.7 [degF] Raul Clayton [facility] 08-09-2022 14:29-0400 Diastolic blood pressure 64 mm[Hg] Raul Clayton [facility] 08-09-2022 14:29-0400 Heart rate 60 /min Raul Clayton [facility] 08-09-2022 14:29-0400 Mean blood pressure 88 mm[Hg] Raul Clayton [facility] 08-09-2022 14:29-0400 Respiratory rate 14 /min Raul Clayton [facility] 08-09-2022 14:29-0400 SaO2% (BldA) [Mass fraction] 95 % Raul Clayton [facility] 08-09-2022 14:29-0400 Systolic blood pressure 136 mm[Hg] Raul Clayton [facility] 08-09-2022 13:45-0400 Diastolic blood pressure 59 mm[Hg] Raul Clayton [facility] 08-09-2022 13:45-0400 Heart rate 62 /min Raul Clayton [facility] 08-09-2022 13:45-0400 Mean blood pressure 83 mm[Hg] Raul Clayton [facility] 08-09-2022 13:45-0400 Respiratory rate 10 /min Raul Clayton [facility] 08-09-2022 13:45-0400 SaO2% (BldA) [Mass fraction] 96 % Raul Arnold [facility] 08-09-2022 13:45-0400 Systolic blood pressure 130 mm[Hg] Raul Clayton [facility] 08-09-2022 13:32-0400 Body temperature 97.52 [degF] Raul Arnold [facility] 08-09-2022 13:32-0400 Diastolic blood pressure 57 mm[Hg] Raul Clayton [facility] 08-09-2022 13:32-0400 Heart rate 66 /min Raulvesna Arnold [facility] 08-09-2022 13:32-0400 Respiratory rate 18 /min Raul Arnold [facility] 08-09-2022 13:32-0400 SaO2% (BldA) [Mass fraction] 95 % Raul Arnold [facility] 08-09-2022 13:32-0400 Systolic blood pressure 130 mm[Hg] Raul Clayton [facility] 08-09-2022 12:19-0400 gluc 212 mg/dL Raul Arnold [facility] 08-09-2022 12:19-0400 gluc Raulvesna Arnold [facility] 08-09-2022 12:17-0400 Body temperature 97.88 [degF] Raul Clayton [facility] 08-09-2022 12:17-0400 Heart rate 74 /min Raul Arnold [facility] 08-09-2022 12:17-0400 Respiratory rate 16 /min Raul Clayton [facility] 07-18-2022 22:45-0400 Body temperature 98.06 [degF] Kaylinn Dokken [facility] 07-18-2022 22:45-0400 Diastolic blood pressure 56 mm[Hg] Kaylinn Dokken [facility] 07-18-2022 22:45-0400 Heart rate 80 /min Kaylinn Dokken [facility] 07-18-2022 22:45-0400 Respiratory rate 18 /min Kaylinn Dokken [facility] 07-18-2022 22:45-0400 SaO2% (BldA) [Mass fraction] 97 % Kaylinn Dokken [facility] 07-18-2022 22:45-0400 Systolic blood pressure 130 mm[Hg] Kaylinn Dokken [facility] 07-18-2022 22:30-0400 Body temperature 98.06 [degF] Kaylinn Dokken [facility] 07-18-2022 22:30-0400 Diastolic blood pressure 58 mm[Hg] Kaylinn Dokken [facility] 07-18-2022 22:30-0400 Heart rate 85 /min Kaylinn Dokken [facility] 07-18-2022 22:30-0400 Respiratory rate 16 /min Kaylinn Dokken [facility] 07-18-2022 22:30-0400 SaO2% (BldA) [Mass fraction] 95 % Kaylinn Dokken [facility] 07-18-2022 22:30-0400 Systolic blood pressure 101 mm[Hg] Ty Manrique [facility] 07-18-2022 16:15-0400 Diastolic blood pressure 84 mm[Hg] Et3 [facility] 07-18-2022 16:15-0400 Heart rate 90 /min Et3 [facility] 07-18-2022 16:15-0400 Respiratory rate 16 /min [facility] 07-18-2022 16:15-0400 SaO2% (BldA) [Mass fraction] 98 % Et3 [facility] 07-18-2022 16:15-0400 Systolic blood pressure 135 mm[Hg] Et3 [facility] 04-10-2022 11:05-0500 Diastolic blood pressure 83 mm[Hg] Callahan SALAM [facility] 04-10-2022 11:05-0500 Mean blood pressure 106 mm[Hg] Callahan SALAM [facility] 04-10-2022 11:05-0500 Systolic blood pressure 151 mm[Hg] Callahan SALAM [facility] 04-10-2022 11:02-0500 Blood Pressure Location Callahan SALAM [facility] 04-10-2022 11:02-0500 Diastolic blood pressure 86 mm[Hg] Callahan SALAM [facility] 04-10-2022 11:02-0500 Heart rate 70 /min Callahan SALAM [facility] 04-10-2022 11:02-0500 Respiratory rate 16 /min Callahan SALAM [facility] 04-10-2022 11:02-0500 SaO2% (BldA) [Mass fraction] 98 % Callahan SALAM [facility] 04-10-2022 11:02-0500 Systolic blood pressure 142 mm[Hg] [place] DIAZ [facility] 04-03-2022 18:00-0500 Diastolic blood pressure 54 mm[Hg] Raul Arnold [facility] 04-03-2022 18:00-0500 Heart rate 66 /min Raul Clayton [facility] 04-03-2022 18:00-0500 Mean blood pressure 78 mm[Hg] Raul Clayton [facility] 04-03-2022 18:00-0500 Respiratory rate 11 /min Raul Clayton [facility] 04-03-2022 18:00-0500 SaO2% (BldA) [Mass fraction] 92 % Raul Clayton [facility] 04-03-2022 18:00-0500 Systolic blood pressure 126 mm[Hg] Raul Clayton [facility] 04-03-2022 16:51-0500 Body temperature 98.24 [degF] Raul Arnold [facility] 04-03-2022 16:51-0500 Diastolic blood pressure 72 mm[Hg] Raul Clayton [facility] 04-03-2022 16:51-0500 Heart rate 72 /min Raul Clayton [facility] 04-03-2022 16:51-0500 Respiratory rate 16 /min Raul Clayton [facility] 04-03-2022 16:51-0500 SaO2% (BldA) [Mass fraction] 99 % Raul Clayton [facility] 04-03-2022 16:51-0500 Systolic blood pressure 120 mm[Hg] Raul Arnold [facility] 04-03-2022 16:36-0500 Body temperature 98.24 [degF] Raul Arnold [facility] 04-03-2022 16:36-0500 Diastolic blood pressure 52 mm[Hg] Raul Arnold [facility] 04-03-2022 16:36-0500 Heart rate 71 /min Raul Arnold [facility] 04-03-2022 16:36-0500 Respiratory rate 16 /min Raul Arnold [facility] 04-03-2022 16:36-0500 SaO2% (BldA) [Mass fraction] 99 % Raul Arnold [facility] 04-03-2022 16:36-0500 Systolic blood pressure 135 mm[Hg] Raul Arnold [facility] 04-02-2022 10:15-0500 Diastolic blood pressure 69 mm[Hg] Brady Marinelli [facility] 04-02-2022 10:15-0500 Heart rate 66 /min Brady Marinelli [facility] 04-02-2022 10:15-0500 Respiratory rate 20 /min Brady Marinelli [facility] 04-02-2022 10:15-0500 SaO2% (BldA) [Mass fraction] 97 % Brady Godfreye [facility] 04-02-2022 10:15-0500 Systolic blood pressure 150 mm[Hg] Brady Yves [facility] 04-02-2022 09:44-0500 Body temperature 97.52 [degF] Brady Marinelli [facility] 04-02-2022 09:44-0500 Diastolic blood pressure 81 mm[Hg] Brady Marinelli [facility] 04-02-2022 09:44-0500 Heart rate 64 /min Brady Marinelli [facility] 04-02-2022 09:44-0500 Respiratory rate 20 /min Brady Marinelli [facility] 04-02-2022 09:44-0500 SaO2% (BldA) [Mass fraction] 95 % Brady Marinelli [facility] 04-02-2022 09:44-0500 Systolic blood pressure 138 mm[Hg] Brady Marinelli [facility] 03-13-2022 19:11-0500 Diastolic blood pressure 45 mm[Hg] Raul Arnold [facility] 03-13-2022 19:11-0500 Heart rate 65 /min Raul Clayton [facility] 03-13-2022 19:11-0500 Mean blood pressure 74 mm[Hg] Raul Clayton [facility] 03-13-2022 19:11-0500 Respiratory rate 18 /min Raul Clayton [facility] 03-13-2022 19:11-0500 SaO2% (BldA) [Mass fraction] 99 % Raul Clayton [facility] 03-13-2022 19:11-0500 Systolic blood pressure 133 mm[Hg] Raul Clayton [facility] 03-13-2022 18:00-0500 Diastolic blood pressure 56 mm[Hg] Raul Clayton [facility] 03-13-2022 18:00-0500 Heart rate 66 /min Raul Arnold [facility] 03-13-2022 18:00-0500 SaO2% (BldA) [Mass fraction] 91 % Raul Clayton [facility] 03-13-2022 18:00-0500 Systolic blood pressure 171 mm[Hg] Raul Clayton [facility] 03-13-2022 16:38-0500 Body temperature 97.52 [degF] Raul Arnold [facility] 03-13-2022 16:38-0500 Diastolic blood pressure 61 mm[Hg] Raul Clayton [facility] 03-13-2022 16:38-0500 Heart rate 67 /min Raul Arnold [facility] 03-13-2022 16:38-0500 Mean blood pressure 94 mm[Hg] Raul Arnold [facility] 03-13-2022 16:38-0500 Respiratory rate 18 /min Raul Clayton [facility] 03-13-2022 16:38-0500 SaO2% (BldA) [Mass fraction] 95 % Raul Arnold [facility] 03-13-2022 16:38-0500 Systolic blood pressure 160 mm[Hg] Raul Clayton [facility] 02-08-2022 22:25-0500 Diastolic blood pressure 77 mm[Hg] Kaylinn Dokken [facility] 02-08-2022 22:25-0500 Heart rate 79 /min Kaylinn Dokken [facility] 02-08-2022 22:25-0500 Respiratory rate 18 /min Kaylinn Dokken [facility] 02-08-2022 22:25-0500 SaO2% (BldA) [Mass fraction] 96 % Jairinn Dokken [facility] 02-08-2022 22:25-0500 Systolic blood pressure 185 mm[Hg] Jairinn Docarlinen [facility] 02-08-2022 21:51-0500 Diastolic blood pressure 79 mm[Hg] Jairinn Docarlinen [facility] 02-08-2022 21:51-0500 Heart rate 78 /min Ty Savageen [facility] 02-08-2022 21:51-0500 Hourly Rounding Ty Manrique [facility] 02-08-2022 21:51-0500 Nursing Progress Note Reason Other: Pt mediciated per orders. Call light in reach. Denies any needs at this time. Ty Manrique [facility] 02-08-2022 21:51-0500 Respiratory rate 18 /min Ty Savageen [facility] 02-08-2022 21:51-0500 SaO2% (BldA) [Mass fraction] 96 % Yulyn Burton [facility] 02-08-2022 21:51-0500 Systolic blood pressure 176 mm[Hg] Jairinn Dokken [facility] 02-08-2022 21:15-0500 Diastolic blood pressure 66 mm[Hg] Jairinn Dokken [facility] 02-08-2022 21:15-0500 Heart rate 74 /min Ty Manrique [facility] 02-08-2022 21:15-0500 Hourly Rounding Ty Manrique [facility] 02-08-2022 21:15-0500 Nursing Progress Note Reason Other: UA obtained and sent to lab. Ty Manrique [facility] 02-08-2022 21:15-0500 Respiratory rate 18 /min Ty Manrique [facility] 02-08-2022 21:15-0500 SaO2% (BldA) [Mass fraction] 96 % Ty Manrique [facility] 02-08-2022 21:15-0500 Systolic blood pressure 154 mm[Hg] Ty Manrique [facility] 02-08-2022 20:30-0500 Body temperature 98.24 [degF] Ty Manrique [facility] 02-03-2022 05:00-0500 Body temperature 98.24 [degF] Vadim Gusman [facility] 02-03-2022 05:00-0500 Diastolic blood pressure 66 mm[Hg] Vadim Naseem [facility] 02-03-2022 05:00-0500 Heart rate 63 /min Vadim Naseem [facility] 02-03-2022 05:00-0500 Mean blood pressure 95 mm[Hg] Vadim Naseem [facility] 02-03-2022 05:00-0500 Respiratory rate 13 /min Vadim Naseem [facility] 02-03-2022 05:00-0500 SaO2% (BldA) [Mass fraction] 90 % Vadim Gusman [facility] 02-03-2022 05:00-0500 Systolic blood pressure 153 mm[Hg] Vadim Gusman [facility] 02-03-2022 04:00-0500 Body temperature 98.6 [degF] Vadim Gusman [facility] 02-03-2022 04:00-0500 Diastolic blood pressure 69 mm[Hg] Vadim Gusman [facility] 02-03-2022 04:00-0500 Mean blood pressure 99 mm[Hg] Vadim Gusman [facility] 02-03-2022 04:00-0500 Respiratory rate 14 /min Vaidm Gusman [facility] 02-03-2022 04:00-0500 SaO2% (BldA) [Mass fraction] 92 % Vadim Gusman [facility] 02-03-2022 04:00-0500 Systolic blood pressure 159 mm[Hg] Vadim Gusman [facility] 02-03-2022 03:00-0500 Mean blood pressure 100 mm[Hg] Vadim Gusman [facility] 02-03-2022 03:00-0500 Respiratory rate 39 /min Vadim Gusman [facility] 02-03-2022 03:00-0500 SaO2% (BldA) [Mass fraction] 91 % Vaidm Gusman [facility] 02-03-2022 03:00-0500 Systolic blood pressure 163 mm[Hg] Vadim Gusman [facility] 02-03-2022 01:14-0500 gluc 186 mg/dL Vadim Gusman [facility] 02-03-2022 01:14-0500 gluc Vadim Gusman [facility] 02-03-2022 01:10-0500 Heart rate 70 /min Vadim Gusman [facility] 02-03-2022 01:10-0500 Respiratory rate 20 /min Vadim Gusman [facility] 02-02-2022 14:00-0400 Blood Pressure Location [facility] 02-02-2022 14:00-0400 BP/Pulse Patient Position [facility] 02-02-2022 14:00-0400 Respiratory rate 18 /min [facility] 02-02-2022 13:00-0400 Hourly Rounding [facility] 02-02-2022 12:33-0400 Hourly Rounding [facility] 02-02-2022 12:33-0400 Promise to Return [facility] 02-02-2022 11:09-0400 Body temperature 97.88 [degF] [facility] 02-02-2022 11:09-0400 Diastolic blood pressure 75 mm[Hg] [facility] 02-02-2022 11:09-0400 Heart rate 65 /min [facility] 02-02-2022 11:09-0400 Mean blood pressure 101 mm[Hg] [facility] 02-02-2022 11:09-0400 SaO2% (BldA) [Mass fraction] 94 % [facility] 02-02-2022 11:09-0400 Systolic blood pressure 154 mm[Hg] [facility] 02-02-2022 11:09-0400 Respiratory rate 20 /min [facility] 02-02-2022 11:00-0400 Hourly Rounding [facility] 02-02-2022 08:58-0400 Promise to Return [facility] 02-02-2022 07:29-0400 Body temperature 97.88 [degF] [facility] 02-02-2022 07:29-0400 Diastolic blood pressure 65 mm[Hg] [facility] 02-02-2022 07:29-0400 Heart rate 69 /min [facility] 02-02-2022 07:29-0400 Mean blood pressure 95 mm[Hg] [facility] 02-02-2022 07:29-0400 SaO2% (BldA) [Mass fraction] 92 % [facility] 02-02-2022 07:29-0400 Systolic blood pressure 153 mm[Hg] [facility] 02-02-2022 06:21-0400 Promise to Return [facility] 02-02-2022 02:05-0400 Body temperature 97.7 [degF] [facility] 02-02-2022 02:05-0400 Diastolic blood pressure 62 mm[Hg] [facility] 02-02-2022 02:05-0400 Heart rate 73 /min [facility] 02-02-2022 02:05-0400 Mean blood pressure 78 mm[Hg] [facility] 02-02-2022 02:05-0400 SaO2% (BldA) [Mass fraction] 93 % [facility] 02-02-2022 02:05-0400 Systolic blood pressure 112 mm[Hg] [facility] 02-01-2022 21:24-0400 gluc 261 mg/dL [facility] 02-01-2022 19:35-0400 Blood Pressure Location [facility] 02-01-2022 19:35-0400 BP/Pulse Patient Position [facility] 02-01-2022 19:35-0400 Respiratory rate 16 /min [facility] 02-01-2022 16:59-0400 gluc 225 mg/dL [facility] 02-01-2022 16:11-0400 Blood Pressure Location [facility] 02-01-2022 16:11-0400 BP/Pulse Patient Position [facility] 02-01-2022 11:11-0400 Mean blood pressure 123 mm[Hg] [facility] 02-01-2022 08:33-0400 Heart rate 78 /min [facility] 02-01-2022 08:08-0400 gluc 119 mg/dL [facility] 02-01-2022 05:20-0400 Heart rate 88 /min [facility] 02-01-2022 03:08-0400 Mean blood pressure 82 mm[Hg] [facility] 02-01-2022 01:01-0400 Mean blood pressure 88 mm[Hg] [facility] 01-31-2022 21:13-0400 Heart rate 83 /min [facility] 01-30-2022 14:00-0400 Mean blood pressure 88 mm[Hg] [facility] 01-30-2022 12:19-0400 Hourly Rounding [facility] 01-30-2022 12:19-0400 Promise to Return [facility] 01-30-2022 12:00-0400 Body temperature 98.06 [degF] [facility] 01-30-2022 12:00-0400 Diastolic blood pressure 72 mm[facility]Hg[facility] 01-30-2022 12:00-0400 Heart rate 71 /min [facility] 01-30-2022 12:00-0400 SaO2% (BldA) [Mass fraction] 96 % [facility] 01-30-2022 12:00-0400 Systolic blood pressure 122 mm[Hg[facility] 01-30-2022 11:19-0400 Hourly Rounding [facility] 01-30-2022 11:19-[address] [facility] 01-30-2022 10:48-[address] [facility] 01-30-2022 10:48-[address] [facility] 01-30-2022 08:00-0400 Body temperature 97.52 [degF] [facility] 01-30-2022 08:00-0400 Diastolic blood pressure 49 mm[Hg[facility] 01-30-2022 08:00-0400 Heart rate 79 /min [facility] 01-30-2022 08:00-0400 SaO2% (BldA) [Mass fraction] 91 % [facility] 01-30-2022 08:00-0400 Systolic blood pressure 132 mm[Hg] [facility] 01-30-2022 06:00-0400 Diastolic blood pressure 46 mm[Hg[facility] 01-30-2022 06:00-0400 Heart rate 64 /min [facility] 01-30-2022 06:00-0400 Mean blood pressure 70 mm[Hg] [facility] 01-30-2022 06:00-0400 Respiratory rate 19 /min [facility] 01-30-2022 06:00-0400 SaO2% (BldA) [Mass fraction] 94 % [facility] 01-30-2022 06:00-0400 Systolic blood pressure 110 mm[Hg] [facility] 01-30-2022 05:00-0400 Respiratory rate 14 /min [facility] 01-30-2022 04:00-0400 Body temperature 97.88 [degF] violad [facility] 01-30-2022 04:00-0400 Mean blood pressure 73 mm[facility]Hg] [facility] 00:00-0400 Body temperature 97.52 [degF] mad [facility] 01-29-2022 19:00-0400 Body temperature 98.06 [degF] [facility] 01-29-2022 16:31-0400 gluc 154 mg/[facility] 01-29-2022 11:00-0400 gluc 211 mg/[facility] 01-29-2022 08:00-0400 gluc 130 mg/[facility] 01-29-2022 07:00-[address] [facility] 01-28-2022 19:00-0400 Respiratory rate 14 /min ramona [facility] 01-28-2022 18:14-0400 Heart rate 73 /[facility] 01-28-2022 18:14-0400 Respiratory rate 15 /[facility] 01-28-2022 17:00-0400 Respiratory rate 18 /min [facility] 01-28-2022 12:01-0400 Heart rate 99 /min [facility] 01-27-2022 17:31-0400 Diastolic blood pressure 60 mm[Hg] [facility] 01-27-2022 17:31-0400 Heart rate 63 /min [facility] 01-27-2022 17:31-0400 Mean blood pressure 99 mm[Hg] [facility] 01-27-2022 17:31-0400 Respiratory rate 20 /min [facility] 01-27-2022 17:31-0400 SaO2% (BldA) [Mass fraction] 97 % [facility] 01-27-2022 17:31-0400 Systolic blood pressure 177 mm[Hg] [facility] 01-27-2022 16:59-0400 Diastolic blood pressure 81 mm[Hg] [facility] 01-27-2022 16:59-0400 Heart rate 68 /min [facility] 01-27-2022 16:59-0400 Mean blood pressure 117 mm[Hg] [facility] 01-27-2022 16:59-0400 Respiratory rate 19 /min [facility] 01-27-2022 16:59-0400 SaO2% (BldA) [Mass fraction] 97 % [facility] 01-27-2022 16:59-0400 Systolic blood pressure 190 mm[Hg] [facility] 01-27-2022 16:00-0400 Diastolic blood pressure 73 mm[Hg] [facility] 01-27-2022 16:00-0400 Mean blood pressure 106 mm[Hg] [facility] 01-27-2022 16:00-0400 SaO2% (BldA) [Mass fraction] 99 % [facility] 01-27-2022 16:00-0400 Systolic blood pressure 171 mm[Hg] [facility] 01-27-2022 14:45-0400 Body temperature 97.88 [degF] [facility] 01-27-2022 14:45-0400 Heart rate 65 /min [facility] 11-17-2021 19:35-0400 Diastolic blood pressure 83 mm[Hg] Brady Marinelli [facility] 11-17-2021 19:35-0400 Heart rate 73 /min Brady Marinelli [facility] 11-17-2021 19:35-0400 Hourly Rounding Brady Godfreye [facility] 11-17-2021 19:35-0400 Respiratory rate 18 /min Brady Godfreye [facility] 11-17-2021 19:35-0400 SaO2% (BldA) [Mass fraction] 94 % Brady Yves [facility] 11-17-2021 19:35-0400 Systolic blood pressure 186 mm[Hg] Brady Yves [facility] 11-17-2021 18:28-0400 Diastolic blood pressure 59 mm[Hg] Brady Yves [facility] 11-17-2021 18:28-0400 Heart rate 69 /min Brady Godfreye [facility] 11-17-2021 18:28-0400 Mean blood pressure 96 mm[Hg] Brady Godfreye [facility] 11-17-2021 18:28-0400 Respiratory rate 14 /min Brady Godfreye [facility] 11-17-2021 18:28-0400 SaO2% (BldA) [Mass fraction] 93 % Brady Yves [facility] 11-17-2021 18:28-0400 Systolic blood pressure 171 mm[Hg] Brady Yves [facility] 11-17-2021 17:30-0400 Body temperature 97.88 [degF] Brady Yves [facility] 11-17-2021 17:30-0400 Diastolic blood pressure 75 mm[Hg] Brady Yves [facility] 11-17-2021 17:30-0400 Heart rate 78 /min Brady Marinelli [facility] 11-17-2021 17:30-0400 Respiratory rate 20 /min Brady Marinelli [facility] 11-17-2021 17:30-0400 SaO2% (BldA) [Mass fraction] 95 % Brady Marinelli [facility] 11-17-2021 17:30-0400 Systolic blood pressure 144 mm[Hg] Brady Marinelli [facility] Encounters Encounter Date Encounter Type Care Provider Facility Start: 11-11-2024 ambulatory Marcelo C Link [facility] Start: 03-28-2024 End: 03-29-2024 Clinisync Result Encounter Generic External Data Provider [facility] Unsolicited Start: 03-28-2024 End: 03-29-2024 Clinisync Result Encounter Generic External Data Provider [facility] External [facility] Unsolicited Start: 03-04-2024 ambulatory Marcelo C Link [facility] Start: 03-04-2024 End: 03-04-2024 Patient encounter procedure Marcelo C Link [facility] Start: 01-01-2024 End: 01-01-2024 ambulatory Marcelo C Link [facility] Start: 01-01-2024 End: 01-01-2024 Patient encounter procedure Marcelo C Link [facility] Start: 12-30-2023 End: 12-30-2023 Lab Drop off Marcelo C Link [facility] Start: 12-30-2023 End: 12-30-2023 ambulatory Marcelo C Link Facility[facility] Start: 12-30-2023 End: 12-30-2023 Patient encounter procedure Marcelo C Link [facility] Start: 11-28-2023 End: 11-28-2023 Lab Drop off Marcelo C Link [facility] Start: 11-28-2023 End: 11-28-2023 ambulatory Marcelo C Link Facility:[facility] Start: 11-28-2023 End: 11-28-2023 Well adult monitoring check done Marcelo C Link [facility] Start: 11-28-2023 End: 11-28-2023 ambulatory Marcelo C Link Facility:[facility] Start: 11-28-2023 End: 11-28-2023 Patient encounter procedure Marcelo C Link [facility] Start: 11-06-2023 End: 11-06-2023 ambulatory Marcelo C Link Facility:[facility] Start: 11-06-2023 End: 11-06-2023 Patient encounter procedure Marcelo C Link [facility] Start: 10-20-2023 End: 10-20-2023 ambulatory ARNOLD D HILLS Not Available Start: 09-23-2023 End: 09-23-2023 ambulatory Arnold D Lawton Facility:[facility] Start: 09-23-2023 End: 09-23-2023 Patient encounter procedure Arnold D Lawton [facility] Start: 09-22-2023 End: 09-22-2023 ambulatory ARNOLD D HILLS Not Available Start: 09-18-2023 End: 09-18-2023 ambulatory Marcelo C Link Facility:[facility] Start: 09-18-2023 End: 09-18-2023 Patient encounter procedure Marcelo C Link [facility] Start: 08-07-2023 End: 08-07-2023 ambulatory Marcelo C Link Facility:[facility] Start: 08-07-2023 End: 08-07-2023 Patient encounter procedure Marcelo C Link [facility] Start: 08-01-2023 End: 08-01-2023 ambulatory Marcelo C Link Facility:[facility] Start: 08-01-2023 End: 08-01-2023 Patient encounter procedure Marcelo C Link [facility] Start: 07-01-2023 End: 07-01-2023 ambulatory Marcelo C Link Facility:[facility] Start: 07-01-2023 End: 07-01-2023 Patient encounter procedure Marcelo C Link [facility] Start: 07-01-2023 End: 07-01-2023 ambulatory JOAQUIM RICE Not Available Start: 05-20-2023 End: 05-20-2023 ambulatory JOAQUIM RICE Not Available Start: 05-20-2023 End: 05-24-2023 Pre-admission assessment Joaquim Rice [facility] Start: 05-12-2023 Telephone encounter Joaquim mcgarry DO Work Phone: [facility] Start: 05-09-2023 End: 05-21-2023 Pre-admission assessment Joaquim Rice [facility] Start: 04-11-2023 End: 04-11-2023 ambulatory Joaquim Rice Facility[facility] Start: 03-12-2023 End: 03-27-2023 Pre-admission assessment Joaquim Rice [facility] Start: 03-03-2023 End: 03-03-2023 ambulatory Ashish Chester Other [facility] Other Start: 03-03-2023 Office outpatient vi sit 25 minutes Ashish Chester [facility] Start: 02-13-2023 End: 02-13-2023 Admission to same day surgery center Joaquim Rice [facility] Start: 02-03-2023 End: 02-03-2023 ambulatory Ashish Chester Other [facility] Other Start: 02-03-2023 Office outpatient vi sit 25 minutes Ashish Chester [facility] Start: 01-13-2023 End: 01-13-2023 ambulatory Ashish Chester Other [facility] Other Start: 01-13-2023 Telephone encounter Ashish Chester [facility] Start: 12-19-2022 End: 12-24-2022 Evaluation and management of inpatient Joaquim Rice [facility] Start: 12-08-2022 End: 12-08-2022 [facility]-Site [facility] Start: 12-03-2022 End: 12-03-2022 Off-Site [facility] Start: 11-24-2022 End: 11-29-2022 Evaluation and management of inpatient Reymundo JORDAN [facility] Start: 10-02-2022 End: 10-02-2022 Emergency department patient visit Raul Arnold [facility] Start: 09-04-2022 End: 09-04-2022 Emergency department patient visit Hari Martinez [facility] Start: 09-04-2022 End: 09-04-2022 Emergency department patient visit Marcelo Call [facility] Start: 08-09-2022 End: 08-09-2022 Emergency department patient visit Raul Arnold [facility] Start: 07-18-2022 End: 07-18-2022 Emergency department patient visit Ty Manrique [facility] Start: 07-18-2022 End: 08-09-2022 ambulatory UNKNOWN PROVIDER Facility:[facility] Start: 07-18-2022 End: 07-18-2022 ambulatory [facility] Emergenc y Triage, Treat and Transport Start: 07-18-2022 End: 07-18-2022 Emergency department patient visit [facility] Emergency Triage, Treat and Transport Comment on above: Arrived Start: 04-10-2022 End: 04-10-2022 Patient encounter procedure [place] DIAZ [facility] Start: 04-03-2022 End: 04-03-2022 Emergency department patient visit Raul Arnold [facility] Start: 04-02-2022 End: 04-02-2022 Emergency department patient visit Brady Yves [facility] Start: 03-13-2022 End: 03-13-2022 Emergency department patient visit Raul Arnold [facility] Start: 03-05-2022 End: 03-05-2022 Patient encounter procedure Marcelo Call [facility] Start: 02-13-2022 End: 02-13-2022 Patient encounter procedure Marcelo Rivers Link [facility] Start: 02-08-2022 End: 02-08-2022 Emergency department patient visit Ty Manrique [facility] Start: 02-03-2022 End: 02-03-2022 Emergency department patient visit Vadim Gusman [facility] Start: 01-31-2022 End: 02-02-2022 Observation Kilo HARRIS [facility] Start: 01-29-[address] Chuck Tom strunkmisael [facility] Facility: Start: 01-28-2022 End: 01-30-2022 Observation Nomi Hart [facility] Start: 01-28-2022 End: 01-28-2022 Patient encounter procedure Jean Claude Schaeffer [facility] Start: 01-27-2022 End: 01-27-2022 Emergency department patient visit Earnest Guevara [facility] Start: 11-17-2021 End: 11-17-2021 Emergency department patient visit Brady Marinelli [facility] Start: 11-09-2021 End: 11-09-2021 Patient encounter procedure Marcelo Rivers Link [facility] Start: 11-08-2021 End: 11-14-2021 Pre-admission assessment Marcelo Rivers Link [facility] Start: 10-15-2021 End: 10-15-2021 Patient encounter procedure Marcelo Call [facility] Procedures Date Procedure Procedure Detail Performing Clinician Start: 03-28-2024 [facility] UA (CLEAN/CATCH) MICROSCOPIC IF INDICATE Generic External Data Provider Start: 04-11-2023 Aspiration of hip joint Joaquimraquel Rice Start: 02-13-2023 Aspiration of hip joint [...] OF LEFT NECK MASS Start: 12-22-2018 Mammography Joaquimraquel Rice DO Work Phone: Start: 03-10-2018 Arthroplasty [...] Call Start: 06-08-2013 right total knee arthroplasty Mracelo Call Start: 12-14-2012 Right knee surgery Marcelo [...] Screening for malign ant neoplasm of colon [facility] Start: 11-30-2023 Influenza vaccination Influenza Vacc ine (#1) [facility] Start: 11-29-2022 Influenza vaccination Influenza Vacc ine (#1) [facility] Start: 12-23-2019 Screening for malign ant neoplasm of breast Mammogram [facility] Start: 10-10-2019 Pneumococcal vaccination Pneum ococcal Vaccine(s) (65+ yrs) (1 - PCV) [facility] Start: 10-10-2019 Pneumococcal Vaccine : 65+ Years (3 - PPSV23 or PCV20) Pneumococcal Vaccine: 65+ Years (3 - PPSV23 or PCV20) [facility] Start: 10-10-2019 Pneumococcal Vaccine : 65+ Years (3 of 3 - PPSV23 or PCV20) Pneumococcal Vaccine: 65+ Years (3 of 3 - PPSV23 or PCV20) [facility] Start: 10-10-2019 Screening for osteoporosis [...] Hepatitis C screening [facility] Start: 1972 Tetanus + diphtheria + acellular pertussis vaccine (product) Tdap Booster [facility] Start: 04-11-1955 COVID-19 Vaccine (#1) COVID-19 Vacci ne (#1) [facility] Start: 1955 Screening for malign ant neoplasm of colon [facility] Immunizations Immunization Date Immunization Notes Care Provider Carley vincent 12-29-2022 influenza virus vaccine, unspecified formulation Marcelo Link [facility] Femi Comment on above: Result Comment: nurs ing home 07-30-2020 SARS-CoV-2 (COVID-19 ) mRNA BNT-162b2 vax Jean Claude Akkina [facility] 07-10-2020 SARS-CoV-2 (COVID-19 ) mRNA BNT-162b2 vax Jean Claude Akkina [facility] 03-01-2020 influenza virus vaccine, unspecified formulation Jean Claude Akkina [facility] 03-31-2019 SARS-CoV-2 (COVID-19 ) mRNA BNT-162b2 vax Marcelo Link [facility] 12-30-2018 influenza virus vaccine, unspecified formulation Jean Claude Akkina [facility] 12-30-2017 influenza virus vaccine, unspecified formulation Jean Claude Akkina [facility] 06-10-2013 pneumococcal conjuga te vaccine, 13 valent Jean Claude Akkina [facility] 06-10-2013 influenza, seasonal, injectable Marcelo Link [facility] 06-10-2013 pneumococcal polysaccharide vaccine, 23 valent Marcelo Call [facility] 10-30-2010 tetanus toxoid, redu polina diphtheria toxoid, and acellular pertussis vaccine, adsorbed Marcelo Link [facility] Comment on above: Early/Late Reason: O THER: 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 reports that she had an Adacel injection less than 5 years ago. Payers Date Payer Category Payer Medicaid [id number] 2021 Medicaid [id number] 2021 Unknown [id number] 2012 Medicare [id number] 2012 Medicare [id number] 1954 Unknown [id number] 2.16. 840.1.896576.3.579.2.356 1954 Unknown [id number] 2.16. 840.1.940213.3.579.2.356 1954 Unknown [id number] 2.16. 840.1.198219.3.579.2.732 1954 Unknown [id number] 2.16.84 0.1.749850.3.579.2.1259 1954 Unknown [id number] 2.16.84 0.1.417821.3.579.2.125 1954 Unknown [id number] 2.16.84 0.1.336583.3.579.2.1258 1954 Unknown [id number] 2.16.84 0.1.395418.3.579.2.1258 1954 Unknown [id number] 2.16.84 0.1.637474.3.579.2.1258 1954 Unknown [id number] 2.16.84 0.1.571937.3.579.2.1258 1954 Unknown [id number] 2.16.84 0.1.935085.3.579.2.1258 1954 Unknown [id number] 2.16.84 0.1.208704.3.579.2.1258 1954 Unknown [id number] 2.16.8 40.1.476137.3.579.2. 1954 Unknown [id number] 2.16.8 40.1.122812.3.579.2. 1954 Unknown [id number] 2.16.8 40.1.470813.3.579.2. 1954 Unknown [id number] 2.16.8 40.1.445509.3.579.2. 1954 Unknown [id number] 2.16.8 40.1.249793.3.579.2. 1954 Unknown [id number] 2.16.8 40.1.531729.3.579.2. 1954 Unknown [id number] 2.16.8 40.1.583989.3.579.2. 1954 Unknown [id number] 2.16.8 40.1.657990.3.579.2. 1954 Unknown [id number] 2.16.8 40.1.719467.3.579.2 1954 Unknown [id number] 2.16.8 40.1.402782.3.579.2.727 1954 Unknown [id number] 2.16.8 40.1.280278.3.579.2.727 1954 Unknown [id number] 2.16.8 40.1.485606.3.579.2.727 1954 Unknown [id number] 2.16.8 40.1.952008.3.579.2.727 1954 Unknown [id number] 2.16.8 40.1.392384.3.579.2.727 1954 Unknown [id number] 2.16.8 40.1.170292.3.579.2.727 1954 Unknown [id number] 2.16.8 40.1.104157.3.579.2.727 Social History Date Type Detail Facility Start: 01-19-2021 End: 12-19-2022 Tobacco smoking status Never smoked tobacco (finding) [facility] Comment on above: denies Tobacco smoking status Never [facility] Comment on above: denies Start: 02-06-2023 End: 10-20-2023 Sex Assigned At Female [facility] Tobacco smoking status GAIS Tobacco smoking consumption unknown [facility] Start: 1955 Sex Assigned At Not on file [facility] Tobacco [facility] Comment on above: denies Tobacco smoking status No Smoking Status Entered [facility] Start: 12-19-2022 Tobacco use and exposure Smokeless tobacco non-user [facility] Start: 04-10-2023 End: 10-20-2023 Alcohol intake Lifetime non-drinker (finding) [facility] Start: 02-06-2023 End: 10-20-2023 History of Social function [facility] Medical Equipment Procedure Code Equipment Code Equipment Origin al Text Equipment Identifier Dates HIP BIPOLAR ARTHROPLASTY Joaquim Rice DO 11/25/22 Non Biological Hip R {[id number] FDA Start: 11-25-2022 HIP TOTAL ARTHRO PLASTY [...] 12-20-2022 HIP TOTAL ARTHRO PLASTY REVISION Hasmukh UDVALL Joaquim A 12/20/22 Unknown Hip R FDA Start: 12-20-2022 HIP TOTAL ARTHRO PLASTY REVISION Humble Rice DOson A 12/20/22 Unknown Hip R FDA Start: 12-20-2022 HIP TOTAL ARTHRO PLASTY REVISION Hasmukh DUVALL Joaquim A 12/20/22 Unknown Hip R FDA Start: 12-20-2022 HIP TOTAL ARTHRO PLASTY REVISION Hasmukh DUVALL Joaquim A 12/20/22 Unknown Hip R FDA Start: 12-20-2022 HIP TOTAL ARTHRO PLASTY REVISION Hasmukh DUVALL, Joaquim A 12/20/22 Unknown Hip R FDA Start: 12-20-2022 HIP TOTAL ARTHRO PLASTY REVISION Hasmukh DUVALL Joaquim A 12/20/22 Unknown Hip R FDA Start: 12-20-2022 HIP TOTAL ARTHRO PLASTY REVISION Hasmukh DUVALL, Joaquim A 12/20/22 Unknown Hip R FDA Start: 12-20-2022 HIP TOTAL ARTHRO PLASTY REVISION Hasmukh DUVALL, Joaquim A 12/20/22 Unknown Hip R FDA Start: 12-20-2022 HIP TOTAL ARTHRO PLASTY REVISION Brown Joaquim DUVALL A 12/20/22 Unknown Hip R FDA Start: [...] Start: 12-20-2022 HIP TOTAL ARTHRO PLASTY REVISION Joauqim Rice DO 12/20/22 Unknown Hip R FDA [...] Assessment Result Facility 03-04-2024 Functional Status N/A [facility] 12-30-2023 Functional Status N/A [facility] 11-28-2023 Functional Status N/A [facility] 11-06-2023 Functional Status N/A [facility] 09-18-2023 Functional Status N/A [facility] 08-07-2023 Functional Status N/A [facility] 07-01-2023 Functional Status N/A [facility] 02-12-2023 Functional Status No [facility] 12-19-2022 Functional Status N/A [facility] 11-24-2022 Functional Status No [facility] 11-24-2022 Functional Status [facility] 10-02-2022 Functional Status N/A [facility] 09-04-2022 Functional Status N/A [facility] 09-04-2022 Functional Status N/A [facility] 08-09-2022 Functional Status N/A [facility] 07-18-2022 Functional Status N/A [facility] 04-10-2022 Functional Status N/A [facility] 04-03-2022 Functional Status N/A [facility] 04-02-2022 Functional Status N/A [facility] 03-13-2022 Functional Status N/A [facility] 02-08-2022 Functional Status N/A [facility] 02-03-2022 Functional Status N/A [facility] 02-01-2022 Functional Status No [facility] 01-31-2022 Functional Status [facility] 01-28-2022 Functional Status N/A [facility] 01-28-2022 Functional Status [facility] 01-27-2022 Functional Status N/A [facility] 11-17-2021 Functional Status N/A [facility] Clinical Notes 11-17-2021 to 12-29-2023 Telephone Encounter - [facility] - 05/12/2023 10:28 AM ESTTelephone Encounter - [facility] - 05/12/2023 10:28 AM EST Note Date & Type Note Facility 12-29-2023 Hospital Discharg e instructions Follow Up Care 12/29/2023 15:38:55 With:Marcelo Call DO, FAM Address: [address] [place] [address]- When:4 weeks Comments:[address] [facility] [place] 11-28-2023 Hospital Discharg e instructions Patient Education [...] glass of hard liquor (44 mL). Lifestyle [place] your teeth every morning and night with [...] provider. Document Revised: 09/12/2021 Document Reviewed: 09/12/2021 [employer] Patient Education 2023 [employer]MEMS. 11/28/2023 15:51:16 Preventing Health Risks of Being [...] food choices, such as grocery stores and StatusPage. What actions can I take to prevent [...] in-person. Where to find more information MyPlate: www.chooseSmall World Labsplate.gov ?This an online tool that provides personalized [...] provider. Document Revised: 10/12/2021 Document Reviewed: 10/12/2021 [employer] Patient Education 2023 CardioMEMS. 11/28/2023 15:51:12 Diabetes Mellitus and Exercise Diabetes [...] an expert trained in diabetes care (certified industrial hygienist) can help you make an activity plan. [...] (heat stroke). Where to find more information [place] Diabetes Association: diabetes.org Association of Diabetes Care & Education Specialists: diabeteseducator.org This information is not intended to replace advice given to you by your health care provider. Make sure you discuss any questions you have with your health care provider. Document Revised: 09/04/2022 Document Reviewed: 09/04/2022 [employer] Patient Education 2023 CardioMEMS. 11/28/2023 15:51:12 Diabetes Mellitus and Foot Care Diabetes Mellitus and Foot Care Diabetes, also called diabetes mellitus, may cause problems with your feet and legs because of poor blood flow (circulation). Poor circulation may make your skin: Become thinner and graphite pan drier tender. Break more easily. Heal more slowly. Peel [...] right away. Where to find more information [place] Diabetes Association: diabetes.org Association of Diabetes Care [...] provider. Document Revised: 09/18/2022 Document Reviewed: 09/18/2022 [employer] Patient Education 2023 CardioMEMS. 11/28/2023 15:51:11 DASH Eating Plan DASH Eating [...] Dairy Whole or 2% milk, cream, and yqgp-tjo-wpmg. Whole or full-fat cream cheese. Whole-fat or [...] more information National Heart, Lung, and Blood Ione (NHLBI): nhlbi.nih.gov [place] Heart Association (AHA): heart.org Academy of Nutrition and Dietetics: eatright.org National Kidney Foundation (NKF): kidney.org This information is not intended to replace advice given to you by your health care provider. Make sure you discuss any questions you have with your health care provider. Document Revised: 04/03/2023 Document Reviewed: 04/03/2023 [employer] Patient Education 2023 CardioMEMS. 11/28/2023 15:51:09 BMI for Adults BMI for [...] Centers for Disease Control and Prevention: cdc.gov [place] Heart Association: heart.org National Heart, Lung, and Blood Ione: nhlbi.nih.gov This information is not intended to replace advice given to you by your health care provider. Make sure you discuss any questions you have with your health care provider. Document Revised: 12/05/2022 Document Reviewed: 11/28/2022 [employer] Patient Education 2023 [employer] 11/28/2023 15:50:18 BMI for Adults BMI for [...] Centers for Disease Control and Prevention: cdc.gov [place] Heart Association: heart.org National Heart, Lung, and Blood Ione: nhlbi.nih.gov This information is not intended to replace advice given to you by your health care provider. Make sure you discuss any questions you have with your health care provider. Document Revised: 12/05/2022 Document Reviewed: 11/28/2022 [employer] Patient Education [address] [facility] [place] 11-28-2023 Note Patient [...] of hard liquor (44 mL). Lifestyle ? [place] your teeth every morning and night with [...] follow all gun (more content not included)... [facility] 11-28-2023 [facility] Discharg e instructions Follow Up Care 11/28/2023 11:35:04 With:Marcelo Call DO [facility] Address: [address] [place] [address]- When:3 months Comments:3 MONTH DIABETIC CHECKUP [facility] 09-18-2023 Hospital Discharg e instructions Follow Up Care 09/18/2023 15:15:09 With:Marcelo Call DO [facility] Address: [address] [place] [address]- When:3 months Comments:3 MONTH DIABETIC CHECKUP [facility] 08-01-2023 Hospital Discharg e instructions Follow Up Care 08/01/2023 10:01:14 With:Marcelo Call DO, [facility] Address: [address] [place] [address]- When:6 weeks Comments:6 WEEKS FOLLOWUP [facility] 07-01-2023 Hospital Discharg e instructions Patient Education [...] your hypoglycemia. Where to find more information [place] Diabetes Association: www.diabetes.org National Ione of Diabetes and Digestive and Kidney Diseases: [...] provider. Document Revised: 02/15/2021 Document Reviewed: 02/15/2021 [employer] Patient Education 2022 CardioMEMS. Follow Up Care 06/27/2023 11:25:55 With:Marcelo Call DO, FAM Address: [address] [address]- When:4 weeks Comments:[address] [facility] [place] 05-12-2023 Telephone encounter Note Pts intermediate called to get a f/U appt scheduled from [facility] 04/11/23 @ [facility]. Does this patient need one? If so how when would you like me to schedule this appt? Yolie [phone] (planner/scheduler) [facility] 05-12-2023 Miscellaneous Notes Pts intermediate called to get a f/U appt scheduled from R Hip aspiration 04/11/23 @ [facility]. Does this patient need one? If so how when would you like me to schedule this appt? Yolie [phone] (planner/scheduler) documented in this encounter [facility] 04-10-2023 Note [id number]#1.00TIFF [facility] 03-20-2023 Note [id number]#1.00[facility] 03-03-2023 Evaluation note Encounter Date Diagnosis [...] of diseases classified elsewhere (ICD-10 - B96.89) [facility] 11-16-2023 Evaluation + Plan noteExtracted from: Title:LESLIE Post-operative Note - General Author: Can Kaplan Jr., DO Date:02/13/23 Plan Transfer/Discharge: Transfer/Discharge Discharge when meets criteria ( From PACU to Ambulatory Surgery Unit, and To home ). Extracted from: Title:LESLIE Pre-operative Note - Adult Author:Can Chapa Jr., DO Date:02/13/23 Plan [place] Society of Anesthesiologists (ASA) physical status classification: Class III. Anesthetic Preoperative Plan: Anesthesia General. Future Scheduled Tests Radiology* [place] Gastric Emptying Study 04/10/22 [facility]11-16-2023 Hospital Discharge instructions Patient Education 02/13/2023 08:20:41 Post Op Patient Instructions - FT (Custom) (CUSTOM) 02/13/2023 07:23:07 Henri Rice - Hip Injection with Anesthesia (Custom) [place], [place] [facility] HIP INJECTION WITH ANESTHESIA [...] persistent vomiting. Joaquim Rice DO [facility] [address] [place] [address] Reviewed: [facility]11-06-2023 Evaluation note* Encounter Date Diagnosis Assessment Notes [...] of diseases classified elsewhere (ICD-10 - B96.89) [facility] 09-26-2023 Hospital Discharge instructions Patient Education [...] Follow these instructions at home: Medicines Take qqbn-glk-hfsqbyy and prescription medicines only as told by [...] and water are not available, use hand aquaculture farmer. Keep all follow-up visits. This is important. [...] provider. Document Revised: 02/06/2022 Document Reviewed: 02/06/2022 [employer] Patient Education 2022 CardioMEMS. Follow Up Care 12/19/2022 11:45:54 With:Joaquim Rice Address: [address] [place] [address]- Business (1) When: Unknown Comments:Call for followup appointment With:Ashish Chester Address: [address] [place] [address]- Business (1) When:2 weeks Comments:Call for followup appointment With:Marcelo Link Address: [address], [address] [place] [address]- Business (1) When: Unknown [facility]09-26-2023 Evaluation + Plan noteExtracted from: Title:APSO Note [...] patient on MiraLAX for constipation. Ordered: [facility] Hospital Care/Day Moderate 35 Minutes 67565 2. Acute blood loss anemia (D62: Acute posthemorrhagic anemia) From recent admission. Hemoglobin stable. Continue on ferrous sulfate. Ordered: [facility] Care/Day Moderate 35 Minutes 64221 3. 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 Ordered: [facility] Care/Day Moderate 35 Minutes 89623 4. HTN (hypertension) (I10: Essential (primary) hypertension) Blood pressure controlled. Continue on Coreg and lisinopril. Ordered: [facility] Care/Day Moderate 35 Minutes 16707 5. Hypothyroidism (E03.9: Hypothyroidism, unspecified) Stable. On Synthroid. Disposition: To senior care facility when arranged. I discussed the diagnosis and plan of care with the patient at the bedside. Moderate level of MDM based on addressing above issues. This documentation was transcribed using voice recognition software. Several attempts were made to ensure accuracy. However inadvertent computerized classifier tender errors may be present. Soni Padgett. Hospitalist. Ordered: [facility] Hospital Care/Day Moderate 35 Minutes [id number] Orders: bisacodyl, 10 mg = 2 tab(s), Tab-EC, Oral, Once, Stop date 12/24/22 10:00:00 EDT, Routine, Start date 12/24/22 10:00:00 EDT, 12/24/22 9:10:00 EDT polyethylene glycol 3350, 17 gram = 1 EA, Powder-Recon, Oral, Daily, Routine, Start date 12/24/22 10:00:00 EDT, 12/24/22 10:00:00 EDT Referral to [facility] Addendum by Sarah PADGETT MD on December [...] line. Infectious disease consult pending. Ordered: [facility] Hospital Care/Day Moderate 35 Minutes 74411 2. Acute blood loss anemia (D62: Acute posthemorrhagic anemia) From recent admission. Hemoglobin above 7.0. No need for blood transfusion. Continue on ferrous sulfate. Ordered: [facility] Hospital Care/Day Moderate 35 Minutes 99959 3. 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 Ordered: [facility] Care/Day Moderate 35 Minutes [id number] 4. HTN (hypertension) (I10: Essential (primary) hypertension) Blood pressure fairly controlled. Continue on Coreg, lisinopril. Ordered: [facility] Hospital Care/Day Moderate 35 Minutes 62010 5. Hypothyroidism (E03.9: Hypothyroidism, unspecified) Continue Synthroid. Disposition: Pending final wound culture results and final infectious disease recommendations. I discussed the diagnosis and plan of care with the patient at the bedside. Moderate level of MDM based on addressing above issues. This documentation was transcribed using voice recognition software. Several attempts were made to ensure accuracy. However inadvertent computerized classifier tender errors may be present. Soni Padgett. Hospitalist. Ordered: [facility] Care/Day Moderate 35 Minutes [id number] Extracted from: Title:Progress/SOAP Note Author:Rosalia Grossman DO [...] Full CODE STATUS Extracted from: Title:Progress/SOAP Note Author:Chauncey DUVALLRosalia Date:12/21/22 67-year-old female admitted for infection to [...] Ordered: Initial Hospital Care/Day Moderate 55 Minutes 37201 2. Diabetes mellitus with polyneuropathy (E11.42: Type 2 diabetes mellitus with diabetic polyneuropathy) Sliding scale insulin for diabetes plus that she takes from home Ordered: Initial Hospital Care/Day Moderate 55 Minutes 63839 3. HTN (hypertension) (I10: Essential (primary) hypertension) On lisinopril and carvedilol from home; we also resumed her atorvastatin Ordered: Initial Hospital Care/Day Moderate 55 Minutes 86319 PLAN: 1. Patient is on daptomycin 2. [...] PPI 8. Full CODE STATUS Extracted from: Title:ANESpencer Post Op - General Author:MD Martinez Ahmad F Date:12/20/22 Plan Transfer/Discharge: Transfer/Discharge Discharge when meets criteria ( To home ). Extracted from: Title:CARLEES Pre Op - Adult General Author:Cruzito em MD, Ahmad F Date:12/20/22 Plan [place] [employer] of Anesthesiologists (ASA) physical status classification: [...] Tests Radiology* [place] Gastric Emptying Study 04/10/22 [facility]09-10-2023 Hospital Discharge instructions Follow Up Care 12/08/2022 11:51:54 With:Emely Mccall DO, FAM Address: When:Within 1 Month(s) [facility] 09-01-2023 Evaluation + Plan noteExtracted [...] Link Only if needed [address], [address] [place] [address]- Business (1) Additional Instructions: Joaquim Rice Within 2 to 4 weeks [address] [place] [address]- Business (1) Additional Instructions: Call for followup [...] therapy pending precertification to SNF. Ordered: [facility] Hospital Care/Day Moderate 35 Minutes 60657 2. Fall (W19.XXXA: Unspecified fall, initial encounter) Mechanical fall. Stable. Ordered: [facility] Hospital Care/Day Moderate 35 Minutes 82378 3. Acute blood loss anemia (D62: Acute posthemorrhagic anemia) Acute blood loss anemia in the perioperative period. Patient received 1 unit of packed red blood cell transfusion and hemoglobin is stable at around 8.6. She also received IV iron infusions. Continue on oral iron. Ordered: [facility] Hospital Care/Day Moderate 35 Minutes 38751 4. Hypertension (I10: Essential (primary) hypertension) Blood pressure fairly controlled. Continue on Coreg and lisinopril. Ordered: [facility] Care/Day Moderate 35 Minutes 10902 5. Hyperlipidemia (E78.5: Hyperlipidemia, unspecified) Stable. On Lipitor. Ordered: [facility] Hospital Care/Day Moderate 35 Minutes 79811 6. Diabetes (E11.9: Type 2 diabetes mellitus [...] for prophylactic measures, unspecified) Lovenox. Disposition: To senior care facility pending precertification. I discussed the diagnosis and plan of care with the patient at the bedside. Moderate level of MDM based on addressing above issues. This documentation was transcribed using voice recognition software. Several attempts were made to ensure accuracy. However inadvertent computerized classifier tender errors may be present. Soni Padgett. Hospitalist. [...] therapy pending precertification to SNF. Ordered: [facility] Hospital Care/Day Moderate 35 Minutes 37203 2. Fall (W19.XXXA: Unspecified fall, initial encounter) Mechanical fall. Supportive care. Ordered: [facility] Hospital Care/Day Moderate 35 Minutes 25122 3. Acute blood loss anemia (D62: Acute posthemorrhagic anemia) Acute blood loss anemia in the perioperative period Status post 1 unit of packed red blood cell transfusion. Hemoglobin stable at 8.6. Patient received IV iron infusions. Continue on oral iron. Ordered: [facility] Hospital Care/Day Moderate 35 Minutes 50456 4. Hypertension (I10: Essential (primary) hypertension) Blood pressure fairly controlled. Continue on Coreg. We will resume lisinopril at discharge with hold parameters. Ordered: [facility] Hospital Care/Day Moderate 35 Minutes 11278 5. Hyperlipidemia (E78.5: Hyperlipidemia, unspecified) Stable. On [...] discharge as per orthopedic surgeon. Disposition: To senior care facility when arranged pending precertification. I discussed the diagnosis and plan of care with the patient at the bedside. Moderate level of MDM based on addressing above issues. This documentation was transcribed using voice recognition software. Several attempts were made to ensure accuracy. However inadvertent computerized classifier tender errors may be present. Soni Padgett. Hospitalist. [...] 120, # 90 tab(s), Refills(s) 0, Pharmacy: [facility], 162, cm, 01/31/22 21:16:00 EDT, Height/Length Dosing, 70.4, kg, 01/31/22 21:16:00 EDT, Weight Dosing UA With Cult Reflex Extracted from: Title:APSO Note Author:FALLON BANKS, Mbanefo Date: Called oeb99-cyxi-zbf [place] female with history of hypertension, [...] therapy pending precertification to SNF. Ordered: [facility] Hospital Care/Day Moderate 35 Minutes 65151 2. Fall (W19.XXXA: Unspecified fall, initial encounter) Mechanical fall. Supportive care. Ordered: [facility] Care/Day Moderate 35 Minutes 00239 3. Acute blood loss anemia (D62: Acute posthemorrhagic anemia) Acute blood loss anemia in the perioperative period Status post 1 unit of packed red blood cell transfusion. Patient received IV iron infusions. Continue on oral iron. Ordered: [facility] Care/Day Moderate 35 Minutes [id number] 4. Hypertension (I10: Essential (primary) hypertension) Blood pressure fairly controlled. Continue on Coreg. Lisinopril on hold. Ordered: [facility] Care/Day Moderate 35 Minutes 12217 5. Hyperlipidemia (E78.5: Hyperlipidemia, unspecified) Stable. On Lipitor. Ordered: [facility] Care/Day Moderate 35 Minutes 91016 6. Diabetes (E11.9: Type 2 diabetes mellitus [...] for prophylactic measures, unspecified) Lovenox. Disposition: To senior care facility when arranged. I discussed the diagnosis and plan of care with the patient at the bedside. Moderate level of MDM based on addressing above issues. This documentation was transcribed using voice recognition software. Several attempts were made to ensure accuracy. However inadvertent computerized classifier tender errors may be present. Soni Padgett. Hospitalist. Extracted from: Title:APSO Note Author:DANISH JOSE A Janny matthews Date:11/26/22 PLAN: 1. Closed hip fracture (S72.009A: [...] Op - Adult General Author:Cruzito em MD, Nomi F Date:11/25/22 Plan [place] [employer] of Anesthesiologists (ASA) physical status classification: [...] Title:Admission H & P Author:Reymundo JORDAN DO [place] Date:11/24/22 1. Closed hip fracture (S72. 009A: [...] Scheduled Provider:José MENESES MD Location:Extended Care Appointment Type:[facility] Future Scheduled Tests Radiology* [place] Gastric Emptying Study 04/10/22 [facility]08-31-2023 Hospital Discharge instructions Patient Education 11/28/2022 13:25:57 [...] your health care provider. General instructions Take qqjt-ctw-umowbep and prescription medicines only as told by [...] provider. Document Revised: 11/17/2020 Document Reviewed: 11/17/2020 [employer] Patient Education 2021 [employer]. Follow Up Care 11/24/2022 00:36:57 With:Marcelo Call Address: [address], [address] [place] [address]- Business (1) When: only if needed With:Joaquim Rice Address: [address] [place] [address]- Business (1) When:2 to 4 weeks Comments:Call for followup appointment [facility]07-05-2023 Evaluation + Plan noteExtracted from: Title:ED Note [...] Tests Radiology* [place] Gastric Emptying Study 04/10/22 [facility]06-07-2023 Hospital Discharge instructions Patient Education 09/04/2022 21:51:36 [...] Follow these instructions at home: Medicines Take funq-quj-rzhkach and prescription medicines only as told by your health care provider. Ask your health care provider if the medicine prescribed to you: ?Requires you to avoid driving or using heavy machinery. ?Can cause constipation. You may need to take these actions to prevent or treat constipation: ?Drink enough fluid to keep your urine pale yellow. ?Take fkqb-yua-grkauep or prescription medicines. ?Eat foods that are [...] provider. Document Revised: 11/24/2019 Document Reviewed: 11/24/2019 [employer] Patient Education 2022 [employer]. 09/04/2022 21:51:36 Head Injury, Adult Head Injury, [...] Ask your health care provider for a dawd-vd-dqxm plan for gradually returning to activities. Ask [...] your friends, family, a trusted colleague, and encyclopedia research worker about your injury, symptoms, and restrictions. Have them watch for any new or worsening problems. General instructions Take gydj-ewl-amhnizl and prescription medicines only as told by [...] provider. Document Revised: 01/28/2020 Document Reviewed: 01/28/2020 [employer] Patient Education 2022 [employer]MEMS. Follow Up Care 09/04/2022 20:22:40 With:Marcelo Link Address: [address] [place] [address]- Business (1) When:Within 3 Day(s) [facility]06-07-2023 Hospital Discharge instructions Patient Education 09/04/2022 19:32:42 RICE Therapy for Routine Care of Injuries, Ahap-ol-Dqjp RICE Therapy for Routine Care of Injuries [...] provider. Document Revised: 01/04/2021 Document Reviewed: 01/04/2021 [employer] Patient Education 2022 [employer]S. 09/04/2022 19:32:42 Contusion, Bswt-pi-Rhky Contusion A contusion is a deep bruise. [...] sitting or lying down. General instructions Take oamo-tky-cylljlt and prescription medicines only as told by [...] is also called RICE. Youmay be given lyuz-asr-xiskvak medicines for pain. Contact a doctor if [...] provider. Document Revised: 01/10/2022 Document Reviewed: 01/10/2022 [employer] Patient Education 2022 [employer]MEMS. Follow Up Care 09/04/2022 15:05:18 With:Marcelo Link Address: [address], [address] [place] [address] [facility] (1) When:09/07/2022 18:53:36 Comments:Follow-up with your primary care provider in 3 to 5 days. If symptoms worsen, do not improve, or new symptoms arise please report back to emergency department for further evaluation. [facility]06-07-2023 Evaluation + Plan noteExtracted from: Title:ED Note Author:Hari Martinez DO Date :09/04/22 Closed head injury Cervical strain Future Scheduled Tests Radiology* NM Gastric Emptying Study 04/10/22 [facility]05-12-2023 Hospital Discharge instructions Patient Education 08/09/2022 14:12:59 [...] Ask your health care provider for a vkxj-yt-vxeq plan for gradually returning to activities. Ask [...] your friends, family, a trusted colleague, and encyclopedia research worker about your injury, symptoms, and restrictions. Have them watch for any new or worsening problems. General instructions Take oxgi-xjn-olnvhpl and prescription medicines only as told by [...] provider. Document Revised: 01/28/2020 Document Reviewed: 01/28/2020 [employer] Patient Education 2022 [employer]ioMEMS. 08/09/2022 14:12:59 Fall Prevention in Hospitals, Adult [...] balance. Talk with a physical therapist or seeing eye dog trainer if recommended by your health care [...] provider. Document Revised: 10/18/2020 Document Reviewed: 10/18/2020 [employer] Patient Education 2023 [employer] Inc. Follow Up Care 08/09/2022 12:15:41 With:Marcelo Link Address: [address] [place] [address] Business (1) When:08/12/2022 14:11:58 Comments:Call the office [...] sleep, or any new or worsening symptoms. [facility]05-12-2023 Evaluation + Plan noteExtracted from: Title:ED Note [...] Tests Radiology* NM Gastric Emptying Study 04/10/22 [facility]04-21-2023 Hospital Discharge instructions Patient Education 07/18/2022 23:33:46 [...] to strengthen the arm. General instructions Take ybsw-rqi-zllczvv and prescription medicines only as told by [...] provider. Document Revised: 11/30/2021 Document Reviewed: 11/30/2021 [employer] Patient Education 2022 CardioMEMS. 07/18/2022 23:33:46 Hip Pain Hip Pain The [...] activities that cause pain. General instructions Take ueui-fbm-yjcsgal and prescription medicines only as told by [...] provider. Document Revised: 08/02/2019 Document Reviewed: 08/02/2019 [employer] Patient Education 2022 CardioMEMS. 07/18/2022 23:33:46 Fall Prevention in the Home, Adult, Orqk-qo-Vnxc Fall Prevention in the Home, Adult Falls [...] Keep items that you use often in turl-nj-xujqy places. Lower the shelves around your home [...] of the way. Do not use floor maltese or wax that makes floors slippery. What [...] Disease Control and Prevention, STEADI: www.cdc.gov National Ione on Aging: www.britany.nih.gov Contact a doctor if: [...] provider. Document Revised: 12/17/2021 Document Reviewed: 10/18/2020 [employer] Patient Education 2022 CardioMEMS. Follow Up Care 07/18/2022 22:27:53 With:Marcelo Link Address: [facility] [address], [facility] [address] [facility] [place] [address]- Business (1) When:07/21/2022 Comments:Contact ibuprofen, Tylenol at home as needed for pain every 6 hours. Please follow-up with your primary care doctor in the next 2 to 3 days. Please return to the ED for any new or worsening symptoms or [facility]04-20-2023 History of Present illness Narrative* Naseem Hardy MD - 07/18/2022 4:32 PM EDT Images from the original note were not included. EMERGENCY TRIAGE, TREAT AND TRANSPORT (ET3) DOCUMENTATION OF TELEHEALTH VISIT Date / Time: 07/18/2022 / 1615 Name: Fartun Myers NOTE: CORRECT SPELLING MAY BE ZACH : 1955 SSN: (Not on file) EMS Agency: [facility] [x] Verbal consent obtained [] [...] by: Naseem Hardy MD documented in this [id number] Evaluation + Plan note Extracted from: Title:ED Note Author:Burton DUVALL Jairtwan Arnold Date :07/18/22 Accidental fall (W19.XXXA: U nspecified [...] Shoulder Complete Left Future Scheduled Tests Radiology* [place] Gastric Emptying Study 04/10/22 [facility]01-11-2023 Evaluation + Plan note Future Scheduled Tests Radiology* [place] Gastric Emptying Study 04/10/22 [facility]01-04-2023 Hospital Discharge instructions Patient Education 04/03/2022 18:32:58 [...] sitting or lying down. General instructions Take baqd-drj-ubmpeid and prescription medicines only as told by [...] compression, and elevation. You may be given vpry-zfj-ymkggjn medicines for pain. Contact a health care [...] 12/25/2005 Document Revised: 11/05/2018 Document Reviewed: 11/05/2018 [employer] Patient Education 2020 CardioMEMS. Follow Up Care 04/03/2022 16:34:06 With:Marcelo Link Address: [address] [place] [address]- Business (1) When:04/06/2022 18:32:44 Comments:Call the office [...] you develop any new or worsening symptoms. [facility]01-04-2023 Evaluation + Plan noteExtracted from: Title:ED Note [...] Date:04/10/2022 10:15:00 AM Scheduled Provider:London DIAZ MD [facility] Appointment Type:BAD Follow Up [facility]01-03-2023 Evaluation + Plan noteExtracted from: Title:ED Note Author:Brady Marinelli DO Date:04/02 Contusion of hip (S70.00XA: Contusion of unspecified hip, initial encounter) Elbow contusion (S50.00XA: Contusion of unspecified elbow, initial encounter) Orders: XR Elbow 3+ Views Left XR Hip 2-3 Views Left + Pelvis Future Appointments Appointment Date:04/10/2022 10:15:00 AM Scheduled Provider:London DIAZ MD Location:[facility] Appointment Type:BAD Follow Up [facility]-03-2023 Hospital Discharge instructions Patient Education 04/02/2022 11:03:46 [...] your health care provider. General instructions Take vimh-qna-riuzpeg and prescription medicines only as told by your health care provider. Ask your health care provider if the medicine prescribed to you: ?Requires you to avoid driving or using heavy machinery. ?Can cause constipation. You may need to take actions to prevent or treat constipation, such as: ?Drink enough fluid to keep your urine pale yellow. ?Take nqbg-cpj-fglddyz or prescription medicines. ?Eat foods that are [...] 11/05/2018 Document Revised: 07/08/2019 Document Reviewed: 11/05/2018 [employer] Patient Education 2020 CardioMEMS. 04/02/2022 11:03:46 Elbow Contusion Elbow Contusion An [...] sling or splint to support your injury. Maqr-vxh-xxeeldf anti-inflammatory medicines, such as ibuprofen, for pain control. Psnwa-pu-hfzpew exercises. Follow these instructions at home: RICE [...] bath or a shower. General instructions Take zfmp-yzv-xzbsoxt and prescription medicines only as told by your health care provider. Return to your normal activities as told by your health care provider. Ask your health care provider what activities are safe for you. Do eidid-qb-bfngyl exercises only as told by your health [...] 02/23/2007 Document Revised: 09/17/2018 Document Reviewed: 09/17/2018 [employer] Patient Education 2020 [employer] Follow Up Care 04/02/2022 09:43:43 With:Marcelo Link Address: [address], [address] [place] [address]- Business (1) When:Within 3 Day(s) [facility]12-14-2022 Hospital Discharge instructions Patient Education 03/13/2022 19:21:56 [...] home: Managing pain, stiffness, and swelling Take sebu-zcx-aoylqsj and prescription medicines only as told by [...] as fried and sweet foods. ?Take an tbog-pwu-zmlgqgj or prescription medicine for constipation. Contact a [...] 12/10/2001 Document Revised: 05/13/2019 Document Reviewed: 04/06/2018 [employer] Patient Education 2020 [employer] Inc. 03/13/2022 19:21:56 Abdominal Pain, Adult, Gwwo-sk-Soqs Abdominal Pain, Adult Many things can cause belly (abdominal) pain. Most times, belly pain is not dangerous. Many cases of belly pain can be watched and treated at home. Sometimes, though, belly pain is serious. Your doctor will try to find the cause of your belly pain. Follow these instructions at home: Medicines Take xohl-gaw-zhfndur and prescription medicines only as told by [...] your belly pain for any changes. Take nsyx-tyh-cwmryia and prescription medicines only as told by [...] 09/02/2008 Document Revised: 07/26/2019 Document Reviewed: 07/26/2019 [employer] Patient Education 2020 Elsevier Inc. Follow Up Care 03/13/2022 16:37:17 With:Marcelo Link Address: [address] [place] [address]- Business (1) When:03/16/2022 19:05:35 Comments:Follow-up with your primary care provider in 3 to 5 days. If symptoms worsen, do not improve, or new symptoms arise please report back to emergency department for further evaluation. [facility]11-12-2022 Hospital Discharge instructions Patient Education 02/08/2022 22:13:00 [...] Follow these instructions at home: Medicines Take sflo-sew-bfvfzvi and prescription medicines only as told by [...] Watch your condition for any changes. Take agse-zct-cyzrnul and prescription medicines only as told by [...] 12/25/2005 Document Revised: 07/26/2019 Document Reviewed: 07/26/2019 [employer] Patient Education 2020 [employer] Follow Up Care 02/08/2022 20:29:45 With:Marcelo Call Address: [facility] [address] [place] [address] Business (1) When:02/11/2022 Comments:Attend scheduled follow-up with Dr. Call next week to discuss management of ongoing chronic pain and other symptoms [facility]11-11-2022 Evaluation + Plan noteExtracted from: Title:ED Note Author:Delbert Estrada PA-C Micheal e:02/08/22 Abdominal pain (R10.9: Unspe cified abdominal pain) Nausea (R11.0: Nausea) Orders: Automated Diff Basic Metabolic Panel Beta-hydroxybutyrate CBC w/ Auto Diff eGFR Hepatic Function Panel UA With Cult Reflex XR Abdomen 1 View Future Appointments Appointment Date:04/10/2022 10:15:00 AM Scheduled Provider:London DIAZ MD Location:[facility] Type:[facility] Follow Up [facility]11-06-2022 Evaluation + Plan noteExtracted from: Title:ED Note Author:Vadim Gusman MD Date: 1. Medication side effect (T 88.7XXA: Unspecified adverse effect of drug or medicament, initial encounter) Orders: Automated Diff Basic Metabolic Panel CBC w/ Auto Diff eGFR Extra Blue Tube UA With Cult Reflex Future Appointments Appointment Date:04/10/2022 10:15:00 AM Scheduled Provider:London DIAZ MD Location:[facility] App[facility]ment Type:[facility] Follow Up [facility]11-06-2022 Hospital Discharge instructions Patient Education 02/03/2022 05:00:01 Accidental Drug Poisoning, Adult Accidental Drug Poisoning, Adult Accidental drug poisoning happens when a person accidentally takes too much of a substance, such asa prescription medicine, an wvdx-gkd-llemzll medicine, a vitamin, a supplement, or an [...] medicines. Cocaine. Heroin. Multivitamins that contain iron. Qesf-rcx-sfyyqta cold and cough medicines. What increases the [...] Follow these instructions at home: Medicines Take quwu-yks-iioxjkq and prescription medicines only as told by your health care provider. Before taking a new medicine, ask your health care provider whether the medicine: ?May cause side effects. ?Might react with other medicines. Keep a list of all the medicines that you take, including sdjh-sri-gnxpwqz medicines, vitamins, supplements, and herbs. Bring this [...] your cell phone. The hotline of the [place] Association of Poison Control Centers is . [...] a substance, such asa prescription medicine, an afhp-lnp-yffrwjc medicine, a vitamin, a supplement, or an [...] 05/31/2005 Document Revised: 02/27/2018 Document Reviewed: 02/16/2018 [employer] Patient Education 2020 CardioMEMS. Follow Up Care 02/03/2022 01:08:11 With:Marcelo Link Address: [address] [facility] [place] [address]- Business (1) When:02/06/2022 only if needed [facility]11-05-2022 Evaluation + Plan noteExtracted from: Title:Discharge Note Author:DERREK BANKS, Denzel Micheal e:02/02/22 Good Discharge To, Anticipated II - Home with home health Discharged to - Other: states she has a nurse who will be coming in to help with medications and another person to help with recreation engineer Home Discharge Diet(s): Calorie Controlled- 1800 Calorie [...] Tab, 112 mcg= 1 tab(s), Oral, Daily Arlington 325 mg-5 mg oral tablet, 1 tab(s), [...] Marcelo Link 02/08/2022 10:15 AM EST [address], [address] [place] [address]- Business (1) Additional Instructions: Acute Kidney Injury, [...] made to ensure accuracy, however, inadvertently computerized classifier tender mistakes may be present. Dr. Kilo Harris Hospitalist at [facility] Extracted from: Title:ED Note Author:Jair Manrique DOtwan Arnold Date :01/31/22 PAVITHRA (acute kidney injury) (N [...] Date:04/10/2022 10:15:00 AM Scheduled Provider:London DIAZ MD Location:[facility] App[facility]ment Type:[facility] Follow Up Diagnostic Tests Pending * Blood Gas Randall 01/31/22 [facility]11-05-2022 Hospital Discharge instructions Patient Education 02/02/2022 11:03:37 [...] Follow these instructions at home: Medicines Take zcmd-lvj-tvmbcaf and prescription medicines only as told by [...] is important. Where to find more information [place] Association of Kidney Patients: www.aakp.org National Kidney Foundation: www.kidney.org [place] Kidney Fund: www.akfinc.org [facility]: [...] 09/30/2011 Document Revised: 02/27/2018 Document Reviewed: 03/07/2017 [employer] Patient Education 2020 CardioMEMS. 02/02/2022 11:03:37 Acute Kidney Injury, Adult Acute [...] Follow these instructions at home: Medicines Take utfw-qxc-jxihuyj and prescription medicines only as told by [...] is important. Where to find more information [place] Association of Kidney Patients: www.aakp.org National Kidney Foundation: www.kidney.org [place] Kidney Fund: www.akfinc.org [facility]: [...] 09/30/2011 Document Revised: 02/27/2018 Document Reviewed: 03/07/2017 [employer] Patient Education [employer]. Follow Up Care 01/31/2022 21:09:18 With:Marcelo Link Address: [address] [place] [address]- Business (1) When:02/08/2022 10:15:00 [facility]11-02-2022 Evaluation + Plan noteExtracted from: Title:Discharge Note [...] Tab, 40 mg= 1 tab(s), Oral, Daily Arlington 325 mg-5 mg oral tablet, 1 tab(s), Oral, BID, PRN Paxil 10 mg Tab, 10 mg= 1 tab(s), Oral, As Directed rosuvastatin 20 mg Tab, 20 mg= 1 tab(s), Oral, Daily traZODONE 100 mg Tab, 200 mg= 2 tab(s), Oral, Once a day (at bedtime) Trulicity Pen 4.5 mg/0.5 mL subcutaneous solution, 4.5 mg, SubCutaneous, qWeek With When Contact Information NOMI WETZEL [address], [address] [place] [address]- Business (1) Additional Instructions: Marcelo Link In 0 days [address], [address] [place] [address]- Business (1) Additional Instructions: Form - Daily [...] Encounter for prophylactic measures, unspecified) Lovenox daily [facility]11-02-2022 Hospital Discharge instructions Patient Education 01/30/2022 09:29:25 [...] 02/18/2005 Document Revised: 12/29/2018 Document Reviewed: 12/13/2016 [employer] Patient Education 2020 [employer] 01/30/2022 09:29:23 Diabetic Ketoacidosis Diabetic Ketoacidosis [...] sugar-free liquids, such as water. Medicines Take ewvo-hlf-mugexpt and prescription medicines only as told by [...] 03/14/2001 Document Revised: 05/02/2017 Document Reviewed: 04/21/2017 [employer] Patient Education 2020 CardioMEMS. 01/30/2022 09:29:22 Diabetes Mellitus and Sick Day [...] lot of sugar. Take medicines as directed Cpvl-apwi-mie-counter and prescription medicines only as told by [...] 03/19/2004 Document Revised: 12/13/2016 Document Reviewed: 12/13/2016 [employer] Patient Education 2020 CardioMEMS. 01/30/2022 09:29:20 Diabetes Mellitus and Nutrition, Adult [...] that you work with a diet and food and nutrition teacher (dietitian) tomake a meal plan [...] care provider. Work with a counselor or software educator to identify strategies to manage stress and any emotional and social challenges. Questions to ask a health care provider Do I need to meet with a software educator? Do I need to meet with a dietitian? What number can I call if I have questions? When are the best times to check my blood glucose? Where to find more information: [place] Diabetes Association: diabetes.org Academy of Nutrition and Dietetics: www.eatright.org National Ione of Diabetes and Digestive and Kidney Diseases (NIH): www.niddk.nih.gov Summary A healthy meal plan will help you control your blood glucose and maintain a healthy lifestyle. Working with a diet and food and nutrition teacher (dietitian) can help you make [...] 12/12/2005 Document Revised: 02/27/2018 Document Reviewed: 04/21/2017 [employer] Patient Education 2020 CardioMEMS. 01/30/2022 09:29:19 Diabetes Mellitus and Foot Care Diabetes Mellitus and Foot Care Foot care is an important part of your health, especially when you have diabetes. Diabetes may cause you to have problems because of poor blood flow (circulation) to your feet and legs, which can cause your skin to: Become thinner and graphite pan drier tender. Break more easily. Heal more slowly. Peel [...] 03/14/2001 Document Revised: 04/29/2018 Document Reviewed: 04/18/2017 [employer] Patient Education 2020 CardioMEMS. 01/30/2022 09:29:18 Diabetes Mellitus and Exercise Diabetes [...] plan? Your health care provider or certified industrial hygienist can help you make a plan for [...] stress. Your health care provider or certified industrial hygienist can help you make a plan for [...] 06/06/2004 Document Revised: 2017 Document Reviewed: 08/26/2016 [employer] Patient Education 2020 [employer] Follow Up Care 01/28/2022 11:57:18 With:NOMI WETZEL Address: [address], [address] [place] [address]- Business (1) When:02/05/2022 09:40:00 Comments:For DKA & Renal Failure With:Marcelo Call Address: [address], [address] [place] [address]- Business (1) When:02/08/2022 10:15:00 [facility]10-30-2022 Hospital Discharge instructions Patient Education 01/27/2022 18:13:28 [...] oral rehydration solution (ORS). This is an aunu-vvj-czljeyq medicine that helps return your body to [...] drinks, sports drinks, and soda. Eat bland, iata-nw-riafja foods in small amounts as you are able. These foods include bananas, applesauce, rice, lean meats, toast, and crackers. Avoid alcohol. Avoid spicy or fatty foods. Medicines Take jvgo-vsa-cldihja and prescription medicines only as told by your health care provider. If you were prescribed an antibiotic medicine, take it as told by your health care provider. Do notstop using the antibiotic even if you start to feel better. General instructions Wash your hands often using soap and water. If soap and water are not available, use a hand aquaculture farmer. Others in the household should wash their [...] soap and water are not available, usehand aquaculture farmer. Contact a health care provider if your diarrhea gets worse or you have new symptoms. Get help right away if you have signs of dehydration. This information is not intended to replace advice given to you by your health care provider. Make sure you discuss any questions you have with your health care provider. Document Released: 03/07/2003 Document Revised: 08/03/2019 Document Reviewed: 08/21/2018 [employer] Patient Education 2020 [employer]ioMEMS. 01/27/2022 18:13:28 Nausea and Vomiting, Adult Nausea [...] water added (diluted fruit juice). Eat bland, gcoc-jt-zyumrh foods in small amounts as you are able. These foods include bananas, applesauce, rice, lean meats, toast, and crackers. Avoid fluids that contain a lot of sugar or caffeine, such as energy drinks, sports drinks, and soda. Avoid alcohol. Avoid spicy or fatty foods. General instructions Take ubrq-exb-vddovrk and prescription medicines only as told by your health care provider. Drink enough fluid to keep your urine pale yellow. Wash your hands often using soap and water. If soap and water are not available, use hand aquaculture farmer. Make sure that all people in your [...] eating and drinking to prevent dehydration. Take stml-vim-fnlvlec and prescription medicines only as told by [...] 03/17/2006 Document Revised: 07/09/2019 Document Reviewed: 08/25/2018 [employer] Patient Education 2020 [employer]MEMS. 01/27/2022 18:13:28 Abdominal Pain, Adult Abdominal Pain, [...] Follow these instructions at home: Medicines Take hbqb-qfr-uiiwwiw and prescription medicines only as told by [...] Watch your condition for any changes. Take hdsh-bmd-fwmhfgi and prescription medicines only as told by [...] 12/25/2005 Document Revised: 07/26/2019 Document Reviewed: 07/26/2019 [employer] Patient Education 2020 [employer]ioMEMS. Follow Up Care 01/27/2022 14:43:33 With:London DIAZ Address: [address] [place] [id number] Business (1) When:01/30/2022 17:32:45 Comments:Return to the emergency room if your pain gets worse, you develop fever, vomiting recurs or any newsymptoms. With:Marcelo Call Address: [address], [address] [facility] [place] [address]- Business (1) When:Within 3 Day(s) [facility]10-30-2022 Evaluation + Plan noteExtracted from: Title:ED Note [...] PT & PTT UA With Cult Reflex [facility]08-20-2022 Hospital Discharge instructions Patient Education 11/17/2021 20:23:44 Hypoglycemia, Hbwt-wk-Ywjy Hypoglycemia Hypoglycemia is when the sugar (glucose) [...] these instructions at home: General instructions Take jczx-ajm-tpagdxi and prescription medicines only as told by [...] 06/11/2010 Document Revised: 07/08/2019 Document Reviewed: 04/19/2016 [employer] Patient Education 2020 [employer]ioMEMS. Follow Up Care 11/17/2021 17:29:57 With:Marcelo Link Address: [address] [place] [address]- Business (1) When:11/20/2021 20:12:53 [facility] No data available for this section [facility] Future Appointments Appointment Date:11/13/2021 02:45:00 PM Scheduled Provider: [facility] Type:PT Eval (FT) [facility] Future Appointments Appointment Date:04/10/2022 10:15:00 AM Scheduled Provider:London DIAZ MD [facility] App[facility]ment Type:BADH [facility] Up [facility] Future Appointments Appointment Date:06/14/2022 12:30:00 PM Scheduled Provider: Location:[facility] Appointment Type:Surgery FT Future Scheduled Tests Radiology* NM Gastric Emptying Study 04/10/22 [facility] Evaluation + Plan note Future Appointments Appointment Date:08/01/2023 09:40:00 AM Scheduled Provider:Marcelo Call DO Location:[facility] Appointment Type:[facility] Evaluation + Plan note Future Appointments Appointment Date:08/07/2023 11:40:00 AM Scheduled Provider:Marcelo Call DO Location:[facility] Appointment Type:[facility] Evaluation + Plan note Future Appointments Appointment Date:09/18/2023 02:40:00 PM Scheduled Provider:Marcelo Call DO Location:[facility] Appointment Type:[facility] Evaluation + Plan note Future Appointments Appointment Date:11/21/2023 09:30:00 AM Scheduled Provider: Location:[facility] Appointment Type: Medicare Wellness Subsequent Appointment Date:11/21/2023 10:40:00 AM Scheduled Provider:Marcelo Call DO Location:[facility] Appointment Type:[facility] Evaluation + Plan note Future Appointments Appointment Date:02/23/2024 10:00:00 AM Scheduled Provider:Marcelo Call DO Location:[facility] Appointment Type: Open Appointment Date:11/11/2024 11:00:00 AM Scheduled Provider: Location:[facility] Appointment Type: Medicare Wellness Subsequent [facility] Evaluation + Plan note Future Appointments Appointment Date:02/23/2024 10:00:00 AM Scheduled Provider:Marcelo Call DO Location:[facility] Appointment Type: Open Appointment Date:11/11/2024 11:00:00 AM Scheduled Provider: Location:[facility] Appointment Type: Medicare Wellness Subsequent Future Scheduled Tests Laboratory* UA with Cult Rflx 12/26/23 Radiology* XR Knee Complete 4+ Views Right 12/30/23 * XR Hip 2-3 Views Right 12/30/23 [facility] Evaluation + Plan note Future Appointments Appointment Date:02/23/2024 10:00:00 AM Scheduled Provider:Marcelo Call DO Location:[facility] Appointment Type: Open Appointment Date:11/11/2024 11:00:00 AM Scheduled Provider: Location:[facility] Appointment Type: Medicare Wellness Subsequent Diagnostic Tests Pending * Urine Culture 12/30/23 Future Scheduled Tests Laboratory* UA with Cult Rflx 12/26/23 Radiology* XR Knee Complete 4+ Views Right 12/30/23 * XR Hip 2-3 Views Right 12/30/23 [facility] Evaluation + Plan note Future Appointments Appointment Date:02/23/2024 10:00:00 AM Scheduled Provider:Marcelo Call DO Location:[facility] Appointment Type: Open Appointment Date:11/11/2024 11:00:00 AM Scheduled Provider: Location:[facility] Appointment Type: Medicare Wellness Subsequent Future Scheduled Tests Laboratory* UA with Cult Rflx 12/26/23 [facility] Evaluation + Plan note Future Appointments Appointment Date:06/08/2024 10:40:00 AM Scheduled Provider:Marcelo Call DO Location:[facility] Appointment Type:FM Open Appointment Date:11/11/2024 11:00:00 AM Scheduled Provider: Location:[facility] Appointment Type:FM Medicare Wellness Subsequent Future Scheduled Tests Laboratory* UA with Cult Rflx 12/26/23 [facility] [place] Evaluation note* Diagnosis Anxiety- Primary Anxiety state, unspecified documented in this encounter [facility] Other History general Narrative - Reported* Type Description Date Medical History DEPRESSION Medical History HTN Medical History ARTHRITIS Medical History DIABETES Medical History NEUROPATHY Surgical History BILATERAL KNEE REPLACEMENT Surgical History LEFT HIP Surgical History LEFT THUMB Surgical History HYSTERECTOMY Surgical History GALLBLADDER Surgical History TUMOR LEFT SHOULDER Hospitalization History SEE ABOVE [facility] Discharge instructions No data available for this section [facility] No data available for this section [facility] Summary Purpose Family History No Family History [...] Care Team (unrecognized sect ion and content) Government Affairs Researcher Relationship Specialty Start Date End Date Marcelo Call MD [address] [place] [address] PCP - General Family Medicine 12/19/22 Government Affairs Researcher Relationship Specialty Start Date End Date Marcelo Call MD [address] [place] [address] PCP - General Family Medicine 09/16/23 INFORMATION SOURCE (unrecogn ized section and content) DATE CREATED AUTHOR 02/06/2022 [facility] DATE CREATED AUTHOR AUTHOR'S ORGANIZ ATION 08/11/2022 [facility] DATE CREATED AUTHOR AUTHOR'S ORGANIZ ATION 12/13/2023 [facility] DATE CREATED AUTHOR AUTHOR'S ORGANIZ ATION 01/04/2024 [facility] DATE CREATED AUTHOR AUTHOR'S ORGANIZ ATION 01/08/2024 [facility] DATE CREATED AUTHOR AUTHOR'S ORGANIZ ATION 01/15/2024 [facility] DATE CREATED AUTHOR AUTHOR'S ORGANIZ ATION 03/03/2024 [facility] Reason for Visit (unrecogniz ed section and [...] BE BASED ON THE PRIMARY CLINICAL RECORDS. [employer] provides no warranty or guarantee of the accuracy or completeness of information in this document.
[2024-04-25] MEDS: ONDANSETRON PF 4 MG/2 ML VIAL IV (09:48)
[2024-04-25 09:50] LABS: Alanine Aminotransferase 14 U/L (14-59); Albumin Globulin Ratio 0.9; Albumin Level 3.6 g/dL (3.4-5.0); Alkaline Phosphatase 104 U/L (46-116); Anion Gap 13.3; Aspartate Amino Transferase 12 U/L (15-37); Bilirubin Total 0.6 mg/dL (0.2-1.0); Calcium 9.6 mg/dL (8.5-10.1); Carbon Dioxide 25.4 mmol/L (21.0-32.0); Chloride 107 mmol/L (98-107); Estimated GFR (African America >60 (>=60 mL/min/1.73m^2); Estimated GFR (Non-African Ame 50 (>=60 mL/min/1.73m^2); Glucose 144 mg/dL (74-106); Potassium 4.7 mmol/L (3.5-5.1); Sodium 141 mmol/L (136-145); Total Protein 7.6 g/dL (6.4-8.2); Troponin I High Sensitivity 15.2 pg/mL (4.0-51.3)
--- NOTE | 2024-04-25 10:35 | PC.NURSE ---
Report called to nurse Graham at [facility].
[2024-04-25] MEDS: MAGNESIUM CITRATE 296 ML SOLUTION PO (10:41)
--- NOTE | 2024-04-25 11:10 | ED_ITS ---
HPI - Nausea/Vomiting/Diarrhea General Chief complaint: Nausea/Vomiting/Diarrhea Stated complaint: NAUSEA, WEAKNESS Time Seen by Provider: 04/25/24 09:00 Source: patient Mode of arrival: ambulance History of Present Illness HPI Narrative: The patient is coming to us by squad from assisted living facility, her nephew is at the bedside, the patient is still complaining that for the last week she did not have a good bowel movement, she also started having some nausea over the last few days, generalized abdominal discomfort but no specific site pain, and the patient have no fever chills or any other complaint otherwise Her last bowel movement was a week ago when she tried some prune juice and MiraLAX with no effect Patient have history of hysterectomy and cholecystectomy Related Data Home Medications ?Medication ?Instructions ?Recorded ?Confirmed acetaminophen 325 mg tablet mg 04/25/24 ascorbic acid (vitamin C) 500 mg 04/25/24 tablet (Vitamin C) atorvastatin 40 mg tablet mg 04/25/24 bisacodyl 5 mg tablet,delayed mg 04/25/24 release (Laxative (bisacodyl)) bupropion HCl 150 mg tablet,12 hr mg PO 04/25/24 sustained-release carvedilol 12.5 mg tablet mg 04/25/24 dextromethorphan-guaifenesin 10 ml 04/25/24 mg-100 mg/5 mL oral liquid (MAXTussin DM) diazepam 2 mg tablet mg 04/25/24 dicyclomine 10 mg capsule mg 04/25/24 dulaglutide 0.75 mg/0.5 mL mg subcut 04/25/24 subcutaneous pen injector (Trulicity) ferrous sulfate 325 mg (65 mg mg 04/25/24 iron) tablet gabapentin 300 mg capsule mg 04/25/24 gabapentin 600 mg tablet mg 04/25/24 hydrocortisone 1 % topical cream applic topical BID PRN itching 04/25/24 insulin aspart (niacinamide) 04/25/24 (U-100) 100 unit/mL subcutaneous solution (Fiasp U-100 Insulin) levothyroxine 112 mcg tablet mcg 04/25/24 lisinopril 10 mg tablet mg 04/25/24 omeprazole 20 mg capsule,delayed mg 04/25/24 release ondansetron HCl 4 mg tablet 4 mg PO Q6H PRN nausea and vomiting 04/25/24 04/25/24 oxybutynin chloride 5 mg mg PO 04/25/24 tablet,extended release 24 hr oxycodone-acetaminophen 5 mg-325 1 tab PO Q12H PRN pain 04/25/24 04/25/24 mg tablet paroxetine HCl 40 mg tablet mg PO 04/25/24 polyethylene glycol 3350 17 g 04/25/24 gram/dose oral powder potassium chloride 20 mEq meq PO 04/25/24 tablet,extended release trazodone 50 mg tablet mg 04/25/24 Allergies Allergy/AdvReac Type Severity Reaction Status Date / Time adhesive tape AdvReac Unknown Unknown Verified 03/25/24 00:53 amoxicillin AdvReac Unknown Unknown Verified 03/25/24 00:53 bacitracin (From Neosporin AdvReac Unknown Unknown Verified 03/25/24 00:53 ([id number])) celecoxib (From Celebrex) AdvReac Unknown Unknown Verified 03/25/24 00:53 neomycin (From Neosporin AdvReac Unknown Unknown Verified 03/25/24 00:53 ([id number])) Penicillins AdvReac Unknown Unknown Verified 03/25/24 00:53 polymyxin B (From Neosporin AdvReac Unknown Unknown Verified 03/25/24 00:53 ([id number])) Sulfa (Sulfonamide AdvReac Unknown Unknown Verified 03/25/24 00:53 Antibiotics) Review of Systems ROS Status of ROS 10 or more systems reviewed and unremark able except as noted in history and below PFSH PFSH Social History Little interest or pleasure in doing things: not at all Feeling down, depressed, or hopeless: not at all Exam Narrative Exam Narrative: Nurses notes and vital signs reviewed and patient is not hypoxic. General: Well-appearing and in no apparent distress. Skin: Warm, dry, no pallor noted. No rash. Head: Normocephalic, atraumatic. Neck: Supple, non-tender. Eye: Pupils are equal, round and EOMI. No scleral icterus. Ears, Nose, Mouth, and Throat: TM are clear, no nasal mucosal hypertrophy. Oral mucosa is moist, no posterior oropharynx erythema, uvula is mid-line Cardiovascular: Regular Rate and Rhythm without murmur, gallop or rub. Respiratory: No accessory muscle use or respiratory distress. Lungs are clear to auscultation, no wheezing, rales or rhonchi Chest Wall: no tenderness Back: No midline thoracic or lumbar vertebral tenderness. No CVA tenderness Musculoskeletal: normal ROM, no calf or popliteal tenderness, no lower extremity edema/swelling GI: Abdomen is soft, the patient have a soft abdomen but distended and not tympanic with a generalized tenderness on superficial palpation Constitutional Vital Signs, click to edit/add: Last Vital Signs Temp 97.9 F 04/25/24 08:56 Pulse 65 04/25/24 08:56 Resp 18 04/25/24 08:56 BP 169/88 H 04/25/24 08:56 Pulse Ox 97 04/25/24 08:56 O2 Del Method Room Air 04/25/24 08:56 Course Vital Signs Vital signs: Vital Signs Temperature 97.9 F 04/25/24 08:56 Pulse Rate 65 04/25/24 08:56 Respiratory Rate 18 04/25/24 08:56 Blood Pressure 169/88 H 04/25/24 08:56 Pulse Oximetry 97 04/25/24 08:56 Oxygen Delivery Method Room Air 04/25/24 08:56 Temperature 97.9 F 04/25/24 08:56 Pulse Rate 65 04/25/24 08:56 Respiratory Rate 18 04/25/24 08:56 Blood Pressure 169/88 H 04/25/24 08:56 Pulse Oximetry 97 04/25/24 08:56 Oxygen Delivery Method Room Air 04/25/24 08:56 MDM - Nausea/Vomiting/Diarrhea MDM Narrative Medical decision making narrative: The patient EKG in the ER showing sinus rhythm with a heart rate of [address] elevation or depression CBC and chemistry showed no acute pathology and the patient CAT scan showed no acute pathology as well except for the constipation Right now the patient was provided magnesium citrate bottle with instruction to drink half of it today and the next Day with instruction also in case of any pain or nausea or vomiting that is increasing it to come back to the ER The patient is to follow up with primary care physician in next 2-3 days or to return to the emergency department should any of the signs or symptoms worsen or new symptoms develop. The patient agrees with the following Diagnosis and Treatment plan and the patient will be discharged home. Lab Data Labs: Lab Results 04/25/24 Range/Units 09:14 WBC 7.7 (4.0-11.0) 10^3/uL RBC 3.78 L (4.20-5.40) 10^6/uL Hgb 12.0 (12.0-16.0) g/dL Hct 36.5 (36.0-48.0) % MCV 96.6 (81.0-99.0) fL MCH 31.7 (26.7-34.0) pg MCHC 32.9 (29.9-35.2) g/dL RDW 11.9 (11.0-15.0) % Plt Count 165 (150-450) 10^3/uL MPV 11.3 (9.5-13.5) fL Neut % (Auto) 77.0 H (43.0-75.0) % Lymph % (Auto) 11.7 L (20.5-60.0) % [place] % (Auto) 8.3 (1.7-12.0) % Eos % (Auto) 2.2 (0.9-7.0) % Baso % (Auto) 0.4 (0.2-2.0) % Neut # (Auto) 5.9 (1.4-6.5) 10^3/uL Lymph # (Auto) 0.9 L (1.2-3.8) 10^3/uL [place] # (Auto) 0.6 (0.3-0.8) 10^3/uL Eos # (Auto) 0.2 (0.0-0.7) 10^3/uL Baso # (Auto) 0.0 (0.0-0.1) 10^3/uL Abs Immat Gran (auto) 0.03 (0.00-0.03) 10^3/uL Imm/Tot Granulo (auto) 0.4 (0.0-0.5) % Sodium 141 (136-145) mmol/L Potassium 4.7 (3.5-5.1) mmol/L Chloride 107 (98-107) mmol/L Carbon Dioxide 25.4 (21.0-32.0) mmol/L Anion Gap 13.3 BUN 12.0 (7.0-18.0) mg/dL Creatinine 1.09 H (0.55-1.02) mg/dL Est GFR ( Amer) >60 (>=60 mL/min/1.73m^2) Est GFR (Non-Af Amer) 50 L (>=60 mL/min/1.73m^2) BUN/Creatinine Ratio 11.0 Glucose 144 H (74-106) mg/dL Calcium 9.6 (8.5-10.1) mg/dL Total Bilirubin 0.6 (0.2-1.0) mg/dL AST 12 L (15-37) U/L ALT 14 (14-59) U/L Alkaline Phosphatase 104 (46-116) U/L Troponin I High Sens 15.2 (4.0-51.3) pg/mL Total Protein 7.6 (6.4-8.2) g/dL Albumin 3.6 (3.4-5.0) g/dL Globulin 4.0 g/dL Albumin/Globulin Ratio 0.9 Discharge Plan Discharge Chief Complaint: Nausea/Vomiting/Diarrhea Clinical Impression: Constipation Patient Disposition: Home, Self-Care Time of Disposition Decision: 10:26 Condition: Good Prescriptions / Home Meds: No Action atorvastatin 40 mg tablet bupropion HCl 150 mg tablet sustained-release 12 hr PO acetaminophen 325 mg tablet gabapentin 600 mg tablet carvedilol 12.5 mg tablet dextromethorphan-guaifenesin [MAXTussin DM] 10-100 mg/5 mL liquid ascorbic acid (vitamin C) [Vitamin C] 500 mg tablet diazepam 2 mg tablet hydrocortisone 1 % cream topical BID PRN (Reason: itching) ferrous sulfate 325 mg (65 mg iron) tablet gabapentin 300 mg capsule bisacodyl [Laxative (bisacodyl)] 5 mg tablet,delayed release (DR/EC) dicyclomine 10 mg capsule Trulicity 0.75 mg/0.5 mL pen injector SUBCUT ondansetron HCl 4 mg tablet 4 mg PO Q6H PRN (Reason: nausea and vomiting) lisinopril 10 mg tablet omeprazole 20 mg capsule,delayed release(DR/EC) levothyroxine 112 mcg tablet Fiasp U-100 Insulin 100 unit/mL solution oxycodone-acetaminophen 5-325 mg tablet 1 tab PO Q12H PRN (Reason: pain) oxybutynin chloride 5 mg tablet extended release 24hr PO trazodone 50 mg tablet polyethylene glycol 3350 17 gram/dose powder paroxetine HCl 40 mg tablet PO potassium chloride 20 mEq tablet extended release PO Print Language: Panamanian Instructions: Constipation (DC) Referrals: Marcelo Call DO [Primary Care Provider] - 1 week
== END 2024-04-25 11:29 | disposition home or self-care (01) ==
PROVIDERS: Emergency Provider Emergency Medicine; PCP Family Medicine
DX: K59.00 Constipation, unspecified (principal); Z90.49 Acquired absence of other specified parts of digestive tract; Z90.710 Acquired absence of both cervix and uterus
CPT/HCPCS: 36415; 74176; 80053; 84484; 85025; 93005; 96374; 99285; J2405

== ENCOUNTER 2024-07-26 17:58 | Emergency (ER) | payer MEDICARE, MEDICAID, SELFPAY ==
[2024-07-26 18:16] VITALS: BP 180/79; PULSE 67; TEMP 37.1; O2SAT 97; BMI 27.5
[2024-07-26 18:40] LABS: Basophils Percent Auto 0.3 % (0.2-2.0); Eosinophils Absolute Auto 0.4 10^3/uL (0.0-0.7); Hematocrit 35.5 % (36.0-48.0); Hemoglobin 11.8 g/dL (12.0-16.0); Immature Granulocytes Abs Auto 0.01 10^3/uL (0.00-0.03); Immature Granulocytes Pct Auto 0.1 % (0.0-0.5); Lymphocytes Absolute Auto 1.9 10^3/uL (1.2-3.8); Lymphocytes Percent Auto 28.2 % (20.5-60.0); Mean Corpuscular HGB Conc 33.2 g/dL (29.9-35.2); Mean Corpuscular Hemoglobin 31.7 pg (26.7-34.0); Mean Corpuscular Volume 95.4 fL (81.0-99.0); Mean Platelet Volume 10.9 fL (9.5-13.5); Monocytes Absolute Auto 1.1 10^3/uL (0.3-0.8); Neutrophils Absolute Auto 3.3 10^3/uL (1.4-6.5); Neutrophils Percent Auto 49.4 % (43.0-75.0); Platelet Count 173 10^3/uL (150-450); Red Blood Count 3.72 10^6/uL (4.20-5.40); Red Cell Distribution Width 11.7 % (11.0-15.0); White Blood Count 6.7 10^3/uL (4.0-11.0)
[2024-07-26 18:45] LABS: Erythrocyte Sedimentation Rate 21 mm/hr (<=30)
[2024-07-26 18:54] LABS: Alanine Aminotransferase 13 U/L (14-59); Albumin Globulin Ratio 0.9; Albumin Level 3.3 g/dL (3.4-5.0); Alkaline Phosphatase 107 U/L (46-116); Anion Gap 10.4; Aspartate Amino Transferase 16 U/L (15-37); BUN Creatinine Ratio 14.6; Bilirubin Total 0.3 mg/dL (0.2-1.0); C Reactive Protein <0.50 mg/dL (<=0.50); Calcium 8.9 mg/dL (8.5-10.1); Carbon Dioxide 28.4 mmol/L (21.0-32.0); Chloride 107 mmol/L (98-107); Estimated GFR (African America >60 (>=60 mL/min/1.73m^2); Estimated GFR (Non-African Ame >60 (>=60 mL/min/1.73m^2); Globulin 3.7 g/dL; Glucose 97 mg/dL (74-106); Potassium 3.8 mmol/L (3.5-5.1); Sodium 142 mmol/L (136-145)
--- NOTE | 2024-07-26 19:37 | ED_ITS ---
HPI - Extremity Problem General Chief complaint: Extremity Injury, Lower Stated complaint: HIP PAIN Time Seen by Provider: 07/26/24 18:26 Mode of arrival: Wheelchair History of Present Illness HPI Narrative: This 68-year-old female who has had bilateral hip surgery and had right hip surgery approximately 1 year ago that had to be revised with a spacer after she developed infection presents for evaluation of bilateral hip pain, right greater than left for the past week. She admits that she has been more active recently since the weather has become nicer. She has not had any falls. She has not had any fever. She is on Percocet for chronic neck and back pain. She denies any chest pain or shortness of breath. There is no pain in her foot, ankle, lower leg or femur. Pain is localized to the right lateral hip area. Related Data Home Medications ?Medication ?Instructions ?Recorded ?Confirmed acetaminophen 325 mg tablet 325 mg 04/25/24 ascorbic acid (vitamin C) 500 mg 04/25/24 tablet (Vitamin C) atorvastatin 40 mg tablet 40 mg 04/25/24 bisacodyl 5 mg tablet,delayed 10 mg 04/25/24 release (Laxative (bisacodyl)) bupropion HCl 150 mg tablet,12 hr 150 mg PO 04/25/24 sustained-release carvedilol 12.5 mg tablet 12.5 mg 04/25/24 diazepam 2 mg tablet mg 04/25/24 dicyclomine 10 mg capsule 10 mg 04/25/24 dulaglutide 0.75 mg/0.5 mL mg subcut 04/25/24 subcutaneous pen injector (Trulicity) ferrous sulfate 325 mg (65 mg 325 mg 04/25/24 iron) tablet gabapentin 300 mg capsule 300 mg 04/25/24 gabapentin 600 mg tablet 600 mg 04/25/24 hydrocortisone 1 % topical cream applic topical BID PRN itching 04/25/24 insulin aspart (niacinamide) 04/25/24 (U-100) 100 unit/mL subcutaneous solution (Fiasp U-100 Insulin) levothyroxine 112 mcg tablet 112 mcg 04/25/24 lisinopril 10 mg tablet 10 mg 04/25/24 omeprazole 20 mg capsule,delayed 20 mg 04/25/24 release ondansetron HCl 4 mg tablet 4 mg PO Q6H PRN nausea and vomiting 04/25/24 07/26/24 oxybutynin chloride 5 mg mg PO 04/25/24 tablet,extended release 24 hr oxycodone-acetaminophen 5 mg-325 1 tab PO Q12H PRN pain 04/25/24 07/26/24 mg tablet paroxetine HCl 40 mg tablet 40 mg PO 04/25/24 polyethylene glycol 3350 17 17 g 04/25/24 gram/dose oral powder potassium chloride 20 mEq 20 meq PO 04/25/24 tablet,extended release trazodone 50 mg tablet 50 mg 04/25/24 Allergies Allergy/AdvReac Type Severity Reaction Status Date / Time adhesive tape AdvReac Unknown Unknown Verified 07/26/24 18:07 amoxicillin AdvReac Unknown Unknown Verified 07/26/24 18:07 bacitracin (From Neosporin AdvReac Unknown Unknown Verified 07/26/24 18:07 ([id number])) celecoxib (From Celebrex) AdvReac Unknown Unknown Verified 07/26/24 18:07 neomycin (From Neosporin AdvReac Unknown Unknown Verified 07/26/24 18:07 ([id number])) Penicillins AdvReac Unknown Unknown Verified 07/26/24 18:07 polymyxin B (From Neosporin AdvReac Unknown Unknown Verified 07/26/24 18:07 ([id number])) Sulfa (Sulfonamide AdvReac Unknown Unknown Verified 07/26/24 18:07 Antibiotics) Review of Systems ROS Status of ROS 10 or more systems reviewed and unremark able except as noted in history and below PFSH PFSH Social History Little interest or pleasure in doing things: not at all Feeling down, depressed, or hopeless: several days Exam Narrative Exam Narrative: Vital signs and Nursing Notes reviewed: Patient is afebrile with a normal pulse, blood pressure is elevated at 180/79, she is not hypoxic with pulse ox of 97% on room air General: Awake, alert, oriented, no acute distress, lying comfortably on the stretcher HEENT: Normocephalic atraumatic, mucous membranes are moist and pink, eyes are clear, normal conjunctiva, vision is grossly intact Chest: Lungs are clear to auscultation with good air entry, there is no wheezing rhonchi or rales appreciated no accessory muscle use, patient is speaking in complete sentences-no chest wall tenderness to palpation CVS: Regular rate and rhythm S1-S2, no murmurs rubs or gallops, pulses are brisk and equal bilaterally ABD: Soft, nondistended, nontender, no rebound guarding or rigidity, bowel sounds are normal, no pulsatile masses appreciated Extremities: Healed incision to the right lateral hip area. There is no redness, swelling or other notable abnormality in this area. Patient is able to flex at the hip and knee. There is no calf swelling redness or sign of DVT. Feet are warm and sensate with normal pulses. Femoral pulses are brisk and equal bilaterally. Skin: Normal in appearance without rash,pallor, petechiae or purpura Neuro: No focal deficits Constitutional Vital Signs, click to edit/add: Last Vital Signs Temp 98.7 F 07/26/24 18:16 Pulse 67 07/26/24 18:16 Resp 16 07/26/24 18:16 BP 180/79 H 07/26/24 18:16 Pulse Ox 97 07/26/24 18:16 O2 Del Method Room Air 07/26/24 18:16 Course Vital Signs Vital signs: Vital Signs Temperature 98.7 F 07/26/24 18:16 Pulse Rate 67 07/26/24 18:16 Respiratory Rate 16 07/26/24 18:16 Blood Pressure 180/79 H 07/26/24 18:16 Pulse Oximetry 97 07/26/24 18:16 Oxygen Delivery Method Room Air 07/26/24 18:16 Temperature 98.7 F 07/26/24 18:16 Pulse Rate 67 07/26/24 18:16 Respiratory Rate 16 07/26/24 18:16 Blood Pressure 180/79 H 07/26/24 18:16 Pulse Oximetry 97 07/26/24 18:16 Oxygen Delivery Method Room Air 07/26/24 18:16 MDM - Extremity (Nontraumatic) MDM Narrative Medical decision making narrative: This 68-year-old female presents for evaluation of 1 week of bilateral hip pain right greater than left. She has had a hip replacement and a spacer device after she developed an infection postoperatively. She denies any injury. She does walk with a walker. She admits that she has been more active recently with the weather becoming nicer. Her physical exam is benign. She has some mild tenderness to the right lateral hip area without any redness or swelling. She is able to flex at the hip and knee. She has normal white count and hemoglobin. Inflammatory markers are normal. Electrolytes are normal. X-ray of the right hip and pelvis shows no acute osseous abnormality with bilateral hip hardware noted and the hardware appeared intact. The results of her lab and x-rays were discussed with her. She is relieved. She will be given an additional dose of Percocet prior to discharge home. She is in pain management for chronic neck and back pain. She was encouraged to call her orthopedic surgeon in the next several days to arrange follow-up appointment. She states she lives at an assisted living facility and the nurse has told her that she will call for her tomorrow. Lab Data Attestation: I reviewed the patient's lab results. Labs: Lab Results 07/26/24 Range/Units 18:34 WBC 6.7 (4.0-11.0) 10^3/uL RBC 3.72 L (4.20-5.40) 10^6/uL Hgb 11.8 L (12.0-16.0) g/dL Hct 35.5 L (36.0-48.0) % MCV 95.4 (81.0-99.0) fL MCH 31.7 (26.7-34.0) pg MCHC 33.2 (29.9-35.2) g/dL RDW 11.7 (11.0-15.0) % Plt Count 173 (150-450) 10^3/uL MPV 10.9 (9.5-13.5) fL Neut % (Auto) 49.4 (43.0-75.0) % Lymph % (Auto) 28.2 (20.5-60.0) % [place] % (Auto) 16.0 H (1.7-12.0) % Eos % (Auto) 6.0 (0.9-7.0) % Baso % (Auto) 0.3 (0.2-2.0) % Neut # (Auto) 3.3 (1.4-6.5) 10^3/uL Lymph # (Auto) 1.9 (1.2-3.8) 10^3/uL [place] # (Auto) 1.1 H (0.3-0.8) 10^3/uL Eos # (Auto) 0.4 (0.0-0.7) 10^3/uL Baso # (Auto) 0.0 (0.0-0.1) 10^3/uL Abs Immat Gran (auto) 0.01 (0.00-0.03) 10^3/uL Imm/Tot Granulo (auto) 0.1 (0.0-0.5) % ESR 21 (<=30) mm/hr Sodium 142 (136-145) mmol/L Potassium 3.8 (3.5-5.1) mmol/L Chloride 107 (98-107) mmol/L Carbon Dioxide 28.4 (21.0-32.0) mmol/L Anion Gap 10.4 BUN 12.0 (7.0-18.0) mg/dL Creatinine 0.82 (0.55-1.02) mg/dL Est GFR ( Amer) >60 (>=60 mL/min/1.73m^2) Est GFR (Non-Af Amer) >60 (>=60 mL/min/1.73m^2) BUN/Creatinine Ratio 14.6 Glucose 97 (74-106) mg/dL Calcium 8.9 (8.5-10.1) mg/dL Total Bilirubin 0.3 (0.2-1.0) mg/dL AST 16 (15-37) U/L ALT 13 L (14-59) U/L Alkaline Phosphatase 107 (46-116) U/L C-Reactive Protein <0.50 (<=0.50) mg/dL Total Protein 7.0 (6.4-8.2) g/dL Albumin 3.3 L (3.4-5.0) g/dL Globulin 3.7 g/dL Albumin/Globulin Ratio 0.9 Discharge Plan Discharge Chief Complaint: Extremity Injury, Lower Clinical Impression: Acute pain of right hip Patient Disposition: Home, Self-Care Time of Disposition Decision: 19:25 Condition: Good Prescriptions / Home Meds: No Action atorvastatin 40 mg tablet 40 mg bupropion HCl 150 mg tablet sustained-release 12 hr 150 mg PO acetaminophen 325 mg tablet 325 mg gabapentin 600 mg tablet 600 mg carvedilol 12.5 mg tablet 12.5 mg ascorbic acid (vitamin C) [Vitamin C] 500 mg tablet diazepam 2 mg tablet hydrocortisone 1 % cream topical BID PRN (Reason: itching) ferrous sulfate 325 mg (65 mg iron) tablet 325 mg gabapentin 300 mg capsule 300 mg bisacodyl [Laxative (bisacodyl)] 5 mg tablet,delayed release (DR/EC) 10 mg dicyclomine 10 mg capsule 10 mg Trulicity 0.75 mg/0.5 mL pen injector SUBCUT ondansetron HCl 4 mg tablet 4 mg PO Q6H PRN (Reason: nausea and vomiting) lisinopril 10 mg tablet 10 mg omeprazole 20 mg capsule,delayed release(DR/EC) 20 mg levothyroxine 112 mcg tablet 112 mcg Fiasp U-100 Insulin 100 unit/mL solution oxycodone-acetaminophen 5-325 mg tablet 1 tab PO Q12H PRN (Reason: pain) oxybutynin chloride 5 mg tablet extended release 24hr PO trazodone 50 mg tablet 50 mg polyethylene glycol 3350 17 gram/dose powder 17 g paroxetine HCl 40 mg tablet 40 mg PO potassium chloride 20 mEq tablet extended release 20 meq PO Print Language: Lithuanian Instructions: Arthralgia (ED), Hip Pain (ED) Referrals: Marcelo Call DO [Primary Care Provider] - 1 week
[2024-07-26] MEDS: OXYCODONE HCL/ACETAMINOPHEN 5MG/325MG 1 TAB PO (19:38)
== END 2024-07-26 20:04 | disposition home or self-care (01) ==
PROVIDERS: Emergency Medicine; Emergency Provider Emergency Medicine; PCP Family Medicine
DX: M25.551 Pain in right hip (principal); Z79.899 Other long term (current) drug therapy; Z96.643 Presence of artificial hip joint, bilateral
CPT/HCPCS: 36415; 73502; 80053; 85025; 85652; 86140; 99285

== ENCOUNTER 2024-12-15 10:03 | Outpatient (REF) | payer MEDICARE, MEDICAID, SELFPAY ==
--- OUTSIDE RECORDS SUMMARY | 2024-12-16 10:14 | XMS_ITS | CCD ---
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 Chuck Moore Attending Yanni vailable Unavailable Primary Care Provider Unavailabl e PROVIDER, UNKNOWN Admitting Unavailable PROVIDER, UNKNOWN Attending Unavailable Ashish Chester Unavailable Vannessa Kaur Unavailable Unavailable Link Marcelo BANKS Primary Care Provider [phone] [facility] Primary Care Physician Unavailab Marcelo Emerson Primary Care Physician [phone] JOAQUIM RICE Attending Unavailable JOAQUIM RICE Referring Unavailable JOAQUIM RICE Referring Unavailable JOAQUIM RICE Attending Unavailable ARNOLD WILLARD Referring Unavailable ARNOLD WILLARD Attending Unavailable JOAQUIM RICE A Referring Unavailable ARNOLD WILLARD Referring Unavailable ARNOLD WILLARD Attending Unavailable Link, Marcelo Rivers Admitting Unavailable Link, Marcelo Rivers Attending Unavailable Link, Marcelo Rivers Attending Unavailable Link, Marcelo Rivers Admitting Unavailable Link, Marcelo Rivers Attending Unavailable Link, Marcelo Rivers Admitting Unavailable Link, Marcelo Rivers Attending Unavailable Link Marcelo BANKS Primary Care Provider Earnest Guevara Attending Unavailable Vadim Gusman Attending Unavailable Link, Marcelo Rivers Attending Unavailable Link, Marcelo Rivers Attending Unavailable Link, Marcelo Rivers Attending Unavailable Link, Marcelo Rivers Attending Unavailable JOSÉ VIRK Attending Unavailable Barrett Gomez Attending Unavailable Raul Arnold Attending Unavailable DO Sanaz ALEJANDRA Attending UnavailDO Sanaz Gunter R Admitting UnavailMarga Gaytan Consulting Unavailable Marga Duckworth Consulting Unavailable MD Marga Duckworth Consulting Unavailab le Marga Duckworth Consulting Unavailable July Emanuel BANKS Primary Care Provider Beatris Hu MD Unavailable Randy Guevara Attending Unavailable Sanaz ALEJANDRA Admitting Unavailable Link, Marcelo Rivers Admitting Unavailable Link, Marcelo Rivers Attending Unavailable MAYEMANUEL Primary Care Unavailable MARGA DUCKWORTH Referring Unavailable JENNA CORDOVA Attending Unavailable Link, Marcelo Rivers Attending Unavailable Link, Marcelo Rivers Attending Unavailable JENNA CORDOVA Referring Unavailable MAY, EMANUEL SPARROW Primary Care Unavailable Link, Marcelo Rivers Attending Unavailable Link, Marcelo Rivers Attending Unavailable JENNA CORDOVA Admitting Unavailable JENNA CORDOVA Attending Unavailable LINK, MARCELO Rivers Primary Care Unavailable Allergies Allergy Classification Reported Allergen(s) Allergy Type Date of Onset Reaction(s) Facility bacitracin / neomycin / polymyxin b (1 source) bacitracin / neomycin / polymyxin b; Translations: [bacitracin/neomy andrea/polymyxin B topical] Drug Allergy Eruption of skin (disorder) [facility] NSAIDs (1 source) celecoxib; Translations: [celecoxib] Drug Allergy Eruption of skin (disorder) [facility] Penicillins (antibiotic) (2 sources) Amoxicillin; Translations: [amoxicillin] Drug Allergy Anaphylaxis (disorder) [facility] Comment on above: Tolerated ceftriaxon e several times in past Sulfonamides (antibiotic) (1 source) Sulfamethoxazole; Translations: [sulfamethoxazole ] Drug Allergy unknown [facility] Triclosan (1 source) Triclosan; Translations: [triclosan topical] Drug Allergy Eruption of skin (disorder) [facility] (20 sources) Adhesive bandage; Translations: [Adhesive Bandage] Drug allergy Eruption of skin (disorder) [facility] (20 sources) Amoxicillin; Translations: [amoxicillin] Drug Allergy 09-21-20 23 Anaphylaxis (disorder), Anaphylaxis [facility] Comment on above: Tolerated ceftriaxon e several times in past (20 sources) bacitracin / neomycin / polymyxin b; Translations: [bacitracin/neomy andrea/polymyxin B topical] Drug Allergy Eruption of skin (disorder) [facility] (20 sources) celecoxib; Translations: [celecoxib] Drug Allergy 04-20-19 14 Eruption of skin (disorder), Unknown [facility] (20 sources) Penicillin; Translations: [penicillin] Drug Allergy Anaphylaxis (disorder) [facility] Comment on above: Tolerated ceftriaxon e several times in past (20 sources) Sulfamethoxazole; Translations: [sulfamethoxazole ] Drug Allergy unknown [facility] (20 sources) Triclosan; Translations: [triclosan topical] Drug Allergy Eruption of skin (disorder) [facility] (20 sources) goldbond cream; Translations: [goldbond cream] Drug allergy Eruption of skin (disorder) [facility] (5 sources) Aloe Extract Drug Allergy 12-20-19 Unknown [facility] (5 sources) Bacitracin / Polymyxin B Drug Allergy 12-20-19 Rash [facility] Other (13 sources) Benzalkonium; Translations: [BENZALKONIUM CHLORIDE] Drug Allergy 04-20-19 14 Unknown [facility] Other (5 sources) corn starch Drug Allergy 12-20-19 23 Unknown [facility] Other (5 sources) dimethicone Drug Allergy 12-20-19 23 Unknown [facility] Other (5 sources) Kaolin Drug Allergy 12-20-19 23 Unknown [facility] Other (17 sources) meloxicam; Translations: [meloxicam] Drug Allergy Unknown [facility] (5 sources) pramoxine Drug Allergy 12-20-19 Unknown [facility] Other (3 sources) Zinc Oxide Drug Allergy Unknown [facility] Other (5 sources) Substance with sulfonamide structure and antibacterial mechanism of action (substance) Drug allergy 12-20-19 23 Unknown [facility] Other (2 sources) celecoxib Drug Allergy 04-20-19 14 Rash, Unknown [facility] (2 sources) meloxicam Drug Allergy 12-20-19 23 [facility] (2 sources) Menthol Drug Allergy 12-20-19 23 Unknown [facility] (2 sources) Triclosan Drug Allergy 12-20-19 23 Rash [facility] (2 sources) Zinc oxide Allergy to substance 12-20-19 23 Unknown [facility] (2 sources) Wound Dressing Adhesive Drug Allergy 12-20-19 23 Rash [facility] (14 sources) Acetaminophen / HYDROcodone; Translations: [Vicodin] Drug Allergy [facility] (14 sources) Latex; Translations: [Latex] Propensity to adverse reactions (disorder) [facility] (14 sources) Penicillin; Translations: [penicillin] Drug Allergy [facility] (1 source) Bacitracin Drug Allergy 04-16-19 [facility] (1 source) Neomycin Drug Allergy 04-16-19 24 [facility] (9 sources) Penicillin G; Translations: [PENICILLIN G] Drug Allergy 04-20-19 14 Anaphylaxis, Unknown [facility] (1 source) Polymyxin B Drug Allergy 04-16-19 [facility] (8 sources) corn starch / kaolin / zinc oxide; Translations: [CORN BXGEAG-[id number]-ZGS C OXIDE] Drug Allergy 04-20-19 14 Unknown [facility] Medications Current Medications Medication Drug Class(es) Dates Sig (Normalized) Sig (Original) acetaminophen 325 mg / HYDROcodone bitartrate 5 mg oral tablet (16 sources) Opioid Agonist Start: 01-28-2022 take 1 tablet by mouth twice daily for pain [place] 325 mg-5 mg oral tablet 1 tab(s), Oral, BID for pain, Refill(s) 0 Start Date: 01/28/22 Status: Ordered acetaminophen 325 mg / oxyCODONE hydrochloride 5 mg oral tablet (20 sources) Opioid Agonist Start: 11-22-2024 take 1 tablet by mouth every six hours as needed oxyCODONE-acetami nophen (PERCOCET) 5-325 mg tablet Take 1 tablet by mouth every 6 hours as needed. 11/22/2024 Active Start: 10-22-2024 take 1 tablet by mindy th three times daily for pain acetaminophen-oxycodone 325 mg-5 mg Tab 1 tab(s), Oral, TID for pain, 60 tab(s), Refill(s) 0, May take between 8am and 8pm day supply, [facility], 162, cm, 09/26/24 11:48:00 EDT, Height/Length Dosing, 71, kg, 09/26/24 11:48:00 EDT, Weight Dosing Start Date: 10/22/24 Status: Ordered Quantity: 60.0 Unit: tab(s) Repeat number: 1 Indications: Other chronic pain; Start: 08-03-2024 take 1 tablet by mindy th every twelve hours for pain acetaminophen-oxycodone 325 mg-5 mg Tab 1 tab(s), Oral, q12hr for pain, 60 tab(s), Refill(s) 0, 30 day supply, [facility], 162.5, cm, 06/18/24 13:24:00 EDT, Height/Length Dosing, 73.1, kg, 06/18/24 13:24:00 EDT, Weight Dosing Start Date: 08/03/24 Status: Ordered Quantity: 60.0 Unit: tab(s) Repeat number: 1 Indications: Other chronic pain; Start: 03-29-2024 take 1 tablet by mindy th every twelve hours for pain acetaminophen-oxycodone 325 mg-5 mg Tab 1 tab(s), Oral, q12hr for pain, 60 tab(s), Refill(s) 0, [facility], 162.5, cm, 03/04/24 11:49:00 EST, Height/Length Dosing, 79.1, kg, 03/04/24 11:49:00 EST, Weight Dosing Start Date: 03/29/24 Status: Ordered Start: 01-22-2024 take 1 tablet by mindy th every twelve hours for pain acetaminophen-oxycodone 325 mg-5 mg Tab 1 tab(s), Oral, q12hr for pain, 60 tab(s), Refill(s) 0, [facility], 162.5, cm, 12/30/23 17:04:00 EDT, Height/Length Dosing, 79.1, kg, 12/30/23 17:04:00 EDT, Weight Dosing Start Date: 01/22/24 Status: Ordered Start: 12-24-2023 take 1 tablet by mindy th every twelve hours for pain acetaminophen-oxycodone 325 mg-5 mg Tab 1 tab(s), Oral, q12hr for pain, 60 tab(s), Refill(s) 0, [facility], 162.5, cm, 11/28/23 10:52:00 EDT, Height/Length Dosing, 77.3, kg, 11/28/23 10:52:00 EDT, Weight Dosing Start Date: 12/24/23 Status: Ordered Start: 08-14-2023 take 1 tablet by mindy th every twelve hours for pain acetaminophen-oxycodone 325 mg-5 mg Tab 1 tab(s), Oral, q12hr for pain, 60 tab(s), Refill(s) 0, 162.5, cm, 08/07/23 11:49:00 EDT, Height/Length Dosing, 70.9, kg, 08/07/23 11:49:00 EDT, Weight Dosing Start Date: 08/14/23 Status: Ordered Start: 07-02-2023 take 1 tablet by mindy every eight hours Percocet 5 mg-325 mg oral tablet 1 tab(s), Oral, q8hr, 90 tab(s), Refill(s) 0, [facility], 162.5, cm, 07/01/23 14:10:00 EDT, Height/Length Dosing, 68.8, kg, 07/01/23 14:10:00 EDT, Weight Dosing Start Date: 07/02/23 Status: Ordered Start: 07-01-2023 take 1 tablet by mindy th every six hours Percocet 5 mg-325 mg oral tablet 1 tab(s), Oral, q6hr, 120 tab(s), Refill(s) 0, [facility], 162.5, cm, 07/01/23 14:10:00 EDT, Height/Length Dosing, 68.8, kg, 07/01/23 14:10:00 EDT, Weight Dosing Start Date: 07/01/23 Status: Ordered Start: 05-19-2023 oxyCODONE-acet aminophen (Percocet) 10-325 MG tablet 05/19/2023 Active Start: 04-11-2023 take 1 tablet by mindy [...] M19.9 hip fracture, 80 tab(s), Refill(s) 0, [facility], 162, cm, 11/24/22 0:45:00 EDT, [...] for 3 day(s), 12 tab(s), Refill(s) 0, [facility] #[facility], 165, cm, 03/13/22 16:40:00 EST, Height/Length Dosing, 73.6, kg, 03/13/22 16:40:00 EST, Weight Dosing Start Date: 03/13/22 Stop Date: 03/16/22 Status: Ordered take 1 tablet by mindy th every four hours oxyCODONE-Acetaminophen 10-325 MG 1 tablet as needed Orally every 4 hrs Active ascorbic acid 500 mg oral tablet (20 sources) Vitamin C Start: 08-06-2024 take 1 tablet by mouth twice daily ascorbic acid 500 mg Tab 500 mg = 1 tab(s), Oral, BID, # 180 tab(s), Refills(s) 4, Pharmacy: [facility], 162.5, cm, 06/18/24 13:24:00 EDT, Height/Length Dosing, 73.1, kg, 06/18/24 13:24:00 EDT, Weight Dosing Start Date: 08/06/24 Status: Ordered Quantity: 180.0 Unit: tab(s) Repeat number: 5 Start: 11-27-2022 take 1 tablet by mindy th twice daily ascorbic acid 500 mg Tab 500 mg = 1 tab(s), Oral, BID, Refills(s) 0 Start Date: 11/27/22 Status: Ordered take 1 capsule by [facility] in the morning ascorbic acid (Vitamin C) 500 MG ER capsule Take 500 mg by mouth in the morning. Active take 1 tablet by mindy every twelve hours Ascorbic Acid 500 MG 1 tablet [...] 1 [facility] 81 MG EC tablet Take 81 mg by mouth in the morning. Active [employer] Multi Blood Glucose Monitoring System (7 sources) Start: 01-15-2024 Assure Prism M ulti Blood Glucose Monitoring System [employer] Prism Multi Blood Glucose Monitoring System, See Instructions, 1 kit(s), 2, To check blood glucose levels, [facility], Supply, 162.5, cm, 12/30/23 17:04:00 EDT, Height/Length Dosing, 79.1, kg, 12/30/23 17:04:00 EDT, Weight Dosing Start Date: 01/15/24 Status: Ordered Quantity: 1.0 Unit: kit(s) Repeat number: 3 Start: 01-15-2024 Assure Prism M ulti Blood Glucose Monitoring System Ass[employer] Prism Multi Blood Glucose Monitoring System, See Instructions, 1 kit(s), 2, To check blood glucose levels, [facility], Supply, 162.5, cm, 12/30/23 17:04:00 EDT, Height/Length Dosing, 79.1, kg, 12/30/23 17:04:00 EDT, Weight Dosing Start Date: 01/15/24 Status: Ordered atorvastatin 40 mg oral tablet (20 sources) HMG-CoA Reductase Inhibitor Start: 02-13-2023 take 1 tablet by mouth once daily atorvastatin 40 mg Tab 40 mg = 1 tab(s), Oral, Daily, # 90 tab(s), Refills(s) 4, Pharmacy: [facility], 162.5, cm, 06/18/24 13:24:00 EDT, Height/Length Dosing, 73.1, kg, 06/18/24 13:24:00 EDT, Weight Dosing Start Date: 08/05/24 Status: Ordered Quantity: 90.0 Unit: tab(s) Repeat number: 5 bisacodyl 5 mg delayed release oral tablet (20 sources) Stimulant Laxative Start: 11-27-2022 bisacodyl (Dulcolax) 5 MG EC tablet Take 10 mg by mouth. 11/27/2022 Active Start: 11-27-2022 take 2 tablets by mo ut once as needed for constipation bisacodyl 5 mg Oral EC Tab 10 mg = 2 tab(s), Oral, Once, PRN Constipation, Refills(s) 0 Start Date: 11/27/22 Status: Ordered Repeat number: 1 buPROPion hydrochloride 75 mg oral tablet (20 sources) Aminoketone Start: 11-16-2024 take 1 tablet by mouth twice daily buPROPion (WELLBUTRIN) 75 mg tablet Take 75 mg by mouth two times a day. 11/16/2024 Active Start: 01-29-2022 take 2 tablets by mo uth once daily buPROPion SR (Wellbutrin SR) 150 [...] 1 tablet Orally BID Active BuPROPion (Eqv-Wellbutrin SR ) 150 mg/12 hours oral tablet, extended release (20 sources) Start: 07-20-2024 BuPROPion (Eqv -Wellbutrin SR) 150 mg/12 hours oral tablet, extended release 150 mg = 1 tab(s), Oral, BID, # 180 tab(s), Refills(s) 4, Pharmacy: [facility], 162.5, cm, 06/18/24 13:24:00 EDT, Height/Length Dosing, 73.1, kg, 06/18/24 13:24:00 EDT, Weight Dosing Start Date: 07/20/24 Status: Ordered Quantity: 180.0 Unit: tab(s) Repeat number: 5 Start: 12-03-2022 BuPROPion (Eqv -Wellbutrin SR) 150 mg/12 hours oral tablet, extended [...] carvedilol 12.5 mg oral tablet (20 sources) alpha-Adrenergi c Pema, beta-Adrenergic Pema Start: 08-12-2024 take 1 tablet by mouth twice daily carvedilol 12.5 mg Tab 12.5 mg = 1 tab(s), Oral, BID, # 60 tab(s), Refills(s) 4, Pharmacy: [facility], 162.5, cm, 06/18/24 13:24:00 EDT, Height/Length Dosing, 73.1, kg, 06/18/24 13:24:00 EDT, Weight Dosing Start Date: 08/12/24 Status: Ordered Quantity: 60.0 Unit: tab(s) Repeat number: 5 Start: 08-14-2020 take 1 tablet by mindy th twice daily carvedilol 12.5 mg Tab 12.5 [...] Refills(s) 0 Start Date: 04/11/23 Status: Ordered Repeat number: 1 cephalexin 500 mg oral capsule (5 sources) Cephalosporin Antibacterial Start: 05-25-2021 take 1 capsule by mouth every eight hours Keflex 500 mg Cap 500 mg = 1 cap(s), Oral, q8hr, # 30 cap(s), Refills(s) 0, Pharmacy: [facility] #[facility], 163, cm, 05/23/21 14:18:00 EST, Height/Length Dosing, 82, kg, 05/23/21 14:18:00 EST, Weight Dosing Start Date: 05/25/21 Status: Ordered ciprofloxacin 500 mg oral tablet (8 sources) Quinolone Antimicrobial Start: 05-24-2024 End: 06-07-2024 take 1 tablet by mouth every twelve hours Cipro 500 mg Tab 500 mg = 1 tab(s), Oral, q12hr, X 14 day(s), # 28 tab(s), Refills(s) 0, Pharmacy: [facility], 162.5, cm, 05/24/24 14:54:00 EST, Height/Length Dosing, 74.5, kg, 05/24/24 14:54:00 EST, Weight Dosing Start Date: 05/24/24 Stop Date: 06/07/24 Status: Ordered Start: 12-30-2023 End: 01-09-2024 take 1 tablet by mouth every twelve hours ciprofloxacin 500 mg Tab 500 mg = 1 tab(s), Oral, q12hr, X 10 day(s), # 20 tab(s), Refills(s) 0, Pharmacy: [facility], 162.5, cm, 12/30/23 17:04:00 EDT, Height/Length Dosing, 79.1, kg, 12/30/23 17:04:00 EDT, Weight Dosing Start Date: 12/30/23 Stop Date: 01/09/24 Status: Ordered Start: 02-13-2023 take 1 tablet by mindy th every twelve hours Cipro 500 mg Tab 500 mg = 1 tab(s), Oral, q12hr, Refills(s) 0, Infection or prophylaxis for antibiotics Start Date: 02/13/23 Status: Ordered Citalopram (5 sources) Serotonin Reuptake Inhibitor CITALOPRAM HYDROBROMIDE (CELEXA ORAL) Take by mouth once daily. Active cyclobenzaprine hydrochloride 10 mg oral tablet (5 sources) Muscle Relaxant Start: 2021 take 1 tablet by mouth three times daily as needed for muscle spasms cyclobenzaprine 10 mg Tab 10 mg = 1 tab(s), Oral, TID, PRN for spasm, # 30 tab(s), Refills(s) 0 Start Date: 05/23/21 Status: Ordered DAPTOmycin 500 mg injection (7 sources) Lipopeptide Antibacterial Start: 2022 take 400 mg intravenously every twenty-four hours DAPTOmycin 500 mg IV Inj. 400 mg, IV, q24hr, # 38 EA, Refills(s) 0 Start Date: 12/24/22 Status: Ordered Start: 12-24-2022 DAPTOmycin (Cu bicin) 500 MG injection Infuse 400 mg into a venous catheter. 0 12/24/2022 Active DAPTOmycin 500 M G as directed Intravenous Active diazePAM 2 mg oral tablet (20 sources) Benzodiazepine Start: 11-01-2024 take 1 tablet by mouth three times daily diazepam 2 mg Tab 2 mg = 1 tab(s), Oral, TID, For 30 day supply, # 90 tab(s), Refills(s) 0, Pharmacy: [facility], 162, cm, 10/22/24 15:08:00 EDT, Height/Length Dosing, 71, kg, 10/22/24 15:08:00 EDT, Weight Dosing Start Date: 11/01/24 Status: Ordered Quantity: 90.0 Unit: tab(s) Repeat number: 1 Indications: Other specified anxiety disorders; Start: 08-27-2024 take 1 tablet by mindy three times daily diazepam 2 mg Tab 2 mg = 1 tab(s), Oral, TID, For 30 day supply, # 90 tab(s), Refills(s) 0, Pharmacy: [facility], 162, cm, 08/23/24 15:21:00 EDT, Height/Length Dosing, 73, kg, 08/23/24 15:21:00 EDT, Weight Dosing Start Date: 08/27/24 Status: Ordered Quantity: 90.0 Unit: tab(s) Repeat number: 1 Indications: Other specified anxiety disorders; Start: 02-04-2024 take 2 tablets by mo [facility] three times daily as needed for anxiety diazepam 2 mg Tab 4 mg = 2 tab(s), Oral, TID, PRN for anxiety, # 180 tab(s), Refills(s) 0, Pharmacy: [facility], 162.5, cm, 12/30/23 17:04:00 EDT, Height/Length Dosing, 79.1, kg, 12/30/23 17:04:00 EDT, Weight Dosing Start Date: 02/04/24 Status: Ordered Start: 12-23-2023 take 2 tablets by mo [facility] three times daily as needed for anxiety diazepam 2 mg Tab 4 mg = 2 tab(s), Oral, TID, PRN for anxiety, # 180 tab(s), Refills(s) 0, Pharmacy: [facility], 162.5, cm, 11/28/23 10:52:00 EDT, Height/Length Dosing, 77.3, kg, 11/28/23 10:52:00 EDT, Weight Dosing Start Date: 12/23/23 Status: Ordered Start: 11-06-2023 take 2 tablets by mo [facility] three times daily as needed for anxiety diazepam 2 mg Tab 4 mg = 2 tab(s), Oral, TID, PRN for anxiety, # 180 tab(s), Refills(s) 0, Pharmacy: [facility], 162.5, cm, 11/06/23 14:42:00 EDT, Height/Length Dosing, 73.7, kg, 11/06/23 14:42:00 EDT, Weight Dosing Start Date: 11/07/23 Status: Ordered Start: 08-04-2023 Valium 2 mg Ta b 2 mg = 1 tab(s), Oral, TID, Every 8 hours for management of anxiety, # 90 tab(s), Refills(s) 0, Pharmacy: [facility], 162.5, cm, 07/01/23 14:10:00 EDT, Height/Length Dosing, 68.8, kg, 07/01/23 14:10:00 EDT, Weight Dosing Start Date: 08/04/23 Status: Ordered Start: 07-01-2023 Valium 2 mg Ta b 2 mg = 1 tab(s), Oral, TID, Every 8 hours for management of anxiety, # 90 tab(s), Refills(s) 0, Pharmacy: [facility], 162.5, cm, 07/01/23 14:10:00 EDT, Height/Length Dosing, 68.8, kg, 07/01/23 14:10:00 EDT, Weight Dosing Start Date: 07/01/23 Status: Ordered Start: 03-01-2023 take 1 tablet by mindy every twelve hours diazePAM (VALIUM) 2 mg tablet Take 2 mg by mouth every 12 hours. 03/01/2023 Active Start: 03-01-2023 End: 05-30-2023 take 1 tablet by mouth every twelve hours for anxiety and anxiety diazePAM (Valium) 2 MG tablet Indications: Anxiety Take 1 tablet (2 mg) by mouth every 12 (twelve) hours. 60 tablet 2 03/01/2023 05/30/2023 Active Start: 12-24-2022 take 1 tablet by mindy every eight hours as needed for muscle spasms Valium 5 mg Tab 5 mg = 1 tab(s), Oral, q8hr, PRN Spasm, # 20 tab(s), Refills(s) 0 Start Date: 12/24/22 Status: Ordered take 1 tablet by mindy every twenty-four hours diazePAM 5 MG 1 tablet as needed Orally Once a day Active dicyclomine hydrochloride 10 mg oral capsule (20 sources) Anticholinergic Start: 08-12-2023 take 1 capsule by mouth at bedtime dicyclomine (BENTYL) 10 mg capsule Take 10 mg by mouth before meals and at bedtime. 09/19/2023 Active Start: 08-05-2023 take 1 capsule by mo [facility] four times daily Bentyl 10 mg Cap 10 mg = 1 cap(s), Oral, QID, # 120 cap(s), Refills(s) 1, Pharmacy: [facility], 162.5, cm, 07/01/23 14:10:00 EDT, Height/Length [...] day(s), # 28 cap(s), Refills(s) 0, Pharmacy: [facility] #[facility], 165, cm, 03/13/22 16:40:00 EST, Height/Length [...] auto-injector (20 sources) GLP-1 Receptor Agonist Start: 06-19-2023 inject 0.75 mg by subcutaneous injection every week TRULICITY 0.75 mg/0.5 mL pen injector Inject 0.75 mg subcutaneously one time a week. 06/19/2023 Active Start: 05-23-2021 inject 4.5 mg by sub [...] Ordered Start: 05-23-2021 take 1 capsule by [facility] once daily esomeprazole 20 mg Cap-DR 20 mg = 1 cap(s), Oral, Daily, # 30 cap(s), Refills(s) 0, Control of stomach acid Start Date: 05/23/21 Status: Ordered End: 12-08-2024 take 1 capsule by mouth once daily esomeprazole 40 mg capsule Take 40 mg by mouth once daily. 12/08/2024 Discontinued ferrous sulfate 325 mg oral tablet (20 sources) Start: 08-31-2024 take 1 tablet by mouth twice daily ferrous sulfate 325 mg Tab 325 mg = 1 tab(s), Oral, BID, # 60 tab(s), Refills(s) 11, Pharmacy: [facility], 162, cm, 08/23/24 15:21:00 EDT, Height/Length Dosing, 73, kg, 08/23/24 15:21:00 EDT, Weight Dosing Start Date: 08/31/24 Status: Ordered Quantity: 60.0 Unit: tab(s) Repeat number: 12 Start: 11-27-2022 take 1 tablet by [facility] once daily ferrous sulfate 325 mg (65 mg iron) tablet Take 325 mg by mouth once daily. 11/27/2022 Active take 1 tablet by [facility] three times weekly Ferrous Sulfate 325 (65 Fe) MG 1 tablet Orally Three times a Week Active fluconazole 200 mg oral tablet (1 source) Azole Antifungal Start: 11-04-2024 End: 11-18-2024 take 1 tablet by mouth once daily fluconazole 200 mg Tab 200 mg = 1 tab(s), Oral, Daily, X 14 day(s), # 14 tab(s), Refills(s) 0, Pharmacy: [facility], 162, cm, 10/22/24 15:08:00 EDT, Height/Length Dosing, 71, kg, 10/22/24 15:08:00 EDT, Weight Dosing Start Date: 11/04/24 Stop Date: 11/18/24 Status: Ordered Quantity: 14.0 Unit: tab(s) Repeat number: 1 gabapentin 300 mg oral capsule (20 sources) Anti-epileptic Agent Start: 10-07-2024 take 1 capsule by mouth three times daily gabapentin 300 mg Cap 300 mg = 1 cap(s), Oral, TID, # 270 cap(s), Refills(s) 1, Pharmacy: [facility], 162, cm, 09/26/24 11:48:00 EDT, Height/Length Dosing, 71, kg, 09/26/24 11:48:00 EDT, Weight Dosing Start Date: 10/07/24 Status: Ordered Quantity: 270.0 Unit: cap(s) Repeat number: 2 Indications: Essential (primary) hypertension; Other specified anxiety disorders; Other chronic pain; Gastro-esophageal reflux disease without esophagitis; Type 2 diabetes mellitus with diabetic polyneuropathy; Other specified health status; Body mass index [BMI] 26.0-26.9, adult; Zoster with other complications; Hypothyroidism, unspecified; Start: 04-26-2024 take 1 capsule by [facility] three times daily gabapentin 300 mg Cap 300 mg = 1 cap(s), Oral, TID, # 270 cap(s), Refills(s) 1, Pharmacy: [facility], 162.5, cm, 03/04/24 11:49:00 EST, Height/Length Dosing, 79.1, kg, 03/04/24 11:49:00 EST, Weight Dosing Start Date: 04/26/24 Status: Ordered Quantity: 270.0 Unit: cap(s) Repeat number: 2 Indications: Essential (primary) hypertension; Other specified anxiety disorders; Other chronic pain; Gastro-esophageal reflux disease without esophagitis; Type 2 diabetes mellitus with diabetic polyneuropathy; Other specified health status; Body mass index [BMI] 26.0-26.9, adult; Zoster with other complications; Hypothyroidism, unspecified; Start: 03-04-2024 take 1 tablet by [facility] three times daily gabapentin 600 mg Tab 600 mg = 1 tab(s), Oral, TID, # 90 tab(s), Refills(s) 2, Pharmacy: [facility], 162.5, cm, 03/04/24 11:49:00 EST, Height/Length Dosing, 79.1, kg, 03/04/24 11:49:00 EST, Weight Dosing Start Date: 03/04/24 Status: Ordered Quantity: 90.0 Unit: tab(s) Repeat number: 3 Start: 01-28-2022 take 800 mg by mouth three times daily gabapentin 800 mg, Oral, TID, Refills(s) 0, Neuropathy Start Date: 01/28/22 Status: Ordered Start: 02-26-2018 take 1 capsule by [facility] three times daily gabapentin 300 mg Cap 300 mg = 1 cap(s), Oral, TID, # 270 cap(s), Refills(s) 1, Pharmacy: [facility], 162.5, cm, 12/30/23 17:04:00 EDT, Height/Length Dosing, 79.1, kg, 12/30/23 17:04:00 EDT, Weight Dosing Start Date: 02/12/24 Status: Ordered take 1 capsule by [facility] once daily gabapentin (NEURONTIN) 300 mg capsule Take 300 mg by mouth once daily. Active heparin (2 sources) Unfractionated Heparin, Anti-coagulant Start: [...] insulin aspart, human 100 unt/ml pen injector (19 sources) Insulin Analog Start: 10-27-2024 insulin aspart U-100 (NOVOLOG) 100 unit/mL (3 mL) pen Inject 9 Units subcutaneously as needed (elevated glucose). 10/27/2024 Active Start: 10-22-2024 insulin aspart 100 units/mL injectable solution See Instructions, Refills(s) 0 Start Date: 10/22/24 Status: Ordered Repeat number: 1 Start: 06-20-2023 Fiasp FlexTouc h 100 UNIT/ML injection 06/20/2023 Active Start: 12-19-2022 [...] injectable solution (20 sources) Insulin Analog Start: 12-08-2024 inject 10 [IU] by subcutaneous injection once daily at bedtime insulin glargine (LANTUS) 100 unit/mL injection Inject 10 Units subcutaneously daily at bedtime. 12/08/2024 Active Start: 07-29-2023 End: 12-08-2024 inject 100 [IU] by subcutaneous injection once daily at bedtime insulin glargine (LANTUS) 100 unit/mL injection Inject 100 Units subcutaneously daily at bedtime. 07/29/2023 12/08/2024 Discontinued Start: 08-14-2020 inject 15 [IU] by mahoney bcutaneous injection once daily at bedtime Lantus 100 units/mL Injection-Insulin 15 unit(s), SubCutaneous, Once a day (at bedtime), # 15 mL, Refills(s) 5, Pharmacy: [facility], 162.5, cm, 07/01/23 14:10:00 EDT, Height/Length Dosing, 68.8, kg, 07/01/23 14:10:00 EDT, Weight Dosing Start Date: 07/29/23 Status: Ordered Quantity: 15.0 Unit: mL Repeat number: 6 Start: 08-14-2020 inject 20 [IU] by mahoney [...] 1 00 UNIT/ML as directed Injection Active LABS FOR DAPTOMYCIN (3 sources) Start: 12-24-2022 LABS FOR DAPTOMYCIN LABS FOR DAPTOMYCIN, WEEKLY BMP, CRP AND CPK ON 12/30/22, 01/06/23, 01/13/23,01/20/23,01/27/23, 02/03/23, Print Requisition, Supply Start Date: 12/24/22 Status: Ordered levothyroxine sodium 0.112 mg oral tablet (20 sources) l-Thyr oxine Start: 08-31-2024 take 1 tablet by mouth once daily levothyroxine 112 mcg (0.112 mg) Tab 112 mcg = 1 tab(s), Oral, Daily, # 30 tab(s), Refills(s) 11, Pharmacy: [facility], 162, cm, 08/23/24 15:21:00 EDT, Height/Length Dosing, 73, kg, 08/23/24 15:21:00 EDT, Weight Dosing Start Date: 08/31/24 Status: Ordered Quantity: 30.0 Unit: tab(s) Repeat number: 12 Start: 05-23-2021 take 1 tablet by mindy th once daily levothyroxine 112 mcg (0.112 mg) Tab 112 mcg = 1 tab(s), Oral, Daily, # 30 tab(s), Refills(s) 0, Thyroid Start Date: 05/23/21 Status: Ordered take 1 tablet by mindy th once daily levothyroxine (SYNTHROID) 112 mcg tablet Take 112 mcg by mouth once daily. Active 3 ml liraglutide 6 mg/ml pen injector (2 sources) GLP-1 Receptor Agonist Start: 06-22-2024 inject 1.2 mg by subcutaneous injection once daily Saxenda 18 mg/3 mL subcutaneous solution 1.2 mg, SubCutaneous, Daily, Replacing Trulicity due to backorder, # 10 mL, Refills(s) 2, Pharmacy: [facility], 162.5, cm, 06/18/24 13:24:00 EDT, Height/Length Dosing, 73.1, kg, 06/18/24 13:24:00 EDT, Weight Dosing Start Date: 06/22/24 Status: Ordered Quantity: 10.0 Unit: mL Repeat number: 3 lisinopril 10 mg oral tablet (20 sources) Angiotensin Converting Enzyme Inhibitor Start: 02-02-2022 End: 11-29-2022 lisinopril 20 mg Tab 20 mg = 1 tab(s), Tab, Oral, Start date 11/29/22 9:00:00 EDT, 11/28/22 21:10:00 EDT Start Date: 11/29/22 Stop Date: 11/29/22 Status: Completed Start: 08-14-2020 lisinopril 40 MG tablet Take 40 mg by mouth. 12/03/2022 Active Start: 04-05-2013 LISINOPRIL 10 mg tablet once daily. 04/05/2013 Active LORazepam 1 mg oral tablet (1 source) Benzodiazepine Start: 05-24-2024 take 1 tablet by mouth three times daily as needed for anxiety Ativan 1 mg Tab 1 mg = 1 tab(s), Oral, TID, PRN for anxiety, # 90 tab(s), Refills(s) 0, Pharmacy: [facility], 162.5, cm, 05/24/24 14:54:00 EST, Height/Length Dosing, 74.5, kg, 05/24/24 14:54:00 EST, Weight Dosing Start Date: 05/24/24 Status: Ordered Max Tussin DM Cough&Chest Mikhail 20-200 MG/10ML [...] stomach acid Start Date: 04/10/22 Status: Ordered metroNIDAZOLE 500 mg oral tablet (1 source) Nitroimidazole Antimicrobial Start: 05-24-2024 End: 06-07-2024 take 1 tablet by mouth every twelve hours Flagyl 500 mg Tab 500 mg = 1 tab(s), Oral, q12hr, X 14 day(s), # 28 tab(s), Refills(s) 0, Pharmacy: [facility], 162.5, cm, 05/24/24 14:54:00 EST, Height/Length Dosing, 74.5, kg, 05/24/24 14:54:00 EST, Weight Dosing Start Date: 05/24/24 Stop Date: 06/07/24 Status: Ordered nitrofurantoin, macrocrystals 25 mg / nitrofurantoin, monohydrate 75 mg oral capsule (1 source) Nitrofuran Antibacterial Start: 05-18-2024 End: 06-01-2024 take 1 capsule by mouth twice daily Macrobid 100 mg Cap 100 mg = 1 cap(s), Oral, BID, X 14 day(s), # 28 cap(s), Refills(s) 0, Pharmacy: [facility], 162.5, cm, 04/27/24 9:37:00 EST, Height/Length Dosing, 72.8, kg, 04/27/24 9:37:00 EST, Weight Dosing Start Date: 05/18/24 Stop Date: 06/01/24 Status: Ordered Nutritional Supplements (Boost Glucose Control) liquid (2 sources) Nutritional Supplements (Boost Glucose Control) liquid Take by mouth. Active Nutritional Supp lements (Boost Glucose Control) liquid Take by mouth. 0 Active nystatin 100 unt/mg topical powder (20 sources) Polyene Antifungal Start: 05-04-2023 nystatin (M YCOSTATIN) powder Apply 1 application to affected area two times a day. 05/04/2023 Active Start: 05-04-2023 nystatin (Myco statin) 423682 UNIT/GM powder 05/04/2023 Active Start: 12-19-2022 nystatin Top 1 00,000 units/g Crm 15 gram 1 rhonda, Topical, BID, 15 gram, Refill(s) 0 Start Date: 12/19/22 Status: Ordered omeprazole 20 mg delayed release oral capsule (20 sources) Proton Pump Inhibitor Start: 07-20-2024 take 1 capsule by mouth once daily omeprazole (PRILOSEC) 20 mg capsule Take 20 mg by mouth once daily. 11/03/2024 Active Start: 02-13-2023 take 1 capsule by [facility] once daily omeprazole 20 mg Cap-DR 20 mg = 1 cap(s), Oral, Daily, Refills(s) 0, Gas Start Date: 02/13/23 Status: Ordered take 1 tablet by mindy th before mealtime omeprazole OTC (PriLOSEC OTC) 20 MG EC tablet Take 20 mg by mouth in the morning. Take before meals. Do not crush, chew, or split. . 0 Active ondansetron 4 mg disintegrating oral tablet (20 sources) Serotonin-3 Receptor Antagonist Start: 11-09-2024 take 1 tablet by mouth every eight hours as needed ondansetron orally disintegrating (ZOFRAN ODT) 4 mg disintegrating tablet Take 4 mg by mouth every 8 hours as needed. 11/09/2024 Active Start: 06-04-2024 take 1 tablet by mindy th every four hours as needed for nausea ondansetron 4 mg Tab 4 mg = 1 tab(s), Oral, q4hr, PRN Nausea/Vomiting, # 90 tab(s), Refills(s) 3, Pharmacy: [facility], 162.5, cm, 05/24/24 14:54:00 EST, Height/Length Dosing, 74.5, kg, 05/24/24 14:54:00 EST, Weight Dosing Start Date: 06/04/24 Status: Ordered Quantity: 90.0 Unit: tab(s) Repeat number: 4 Indications: Gastro-esophageal reflux disease without esophagitis; Start: 05-24-2024 take 1 tablet by mindy th every four hours as needed for nausea ondansetron 4 mg Tab 4 mg = 1 tab(s), Oral, q4hr, PRN Nausea/Vomiting, # 90 tab(s), Refills(s) 3, Pharmacy: [facility], 162.5, cm, 05/24/24 14:54:00 EST, Height/Length Dosing, 74.5, kg, 05/24/24 14:54:00 EST, Weight Dosing Start Date: 05/24/24 Status: Ordered Start: 04-25-2023 take 1 tablet by mindy th every six hours as needed for nausea ondansetron 4 mg Tab 4 mg = 1 tab(s), Oral, q6hr, PRN Nausea/Vomiting, # 90 tab(s), Refills(s) 1, Pharmacy: [facility], 162.5, cm, 07/01/23 14:10:00 EDT, Height/Length Dosing, 68.8, kg, 07/01/23 14:10:00 EDT, Weight Dosing Start Date: 07/01/23 Status: Ordered 24 hr oxybutynin chloride 5 mg extended release oral tablet (20 sources) Cholinergic Muscarinic Antagonist Start: 06-08-2024 take 1 tablet by mouth once daily oxybutynin 5 mg ER Tab 5 mg = 1 tab(s), Oral, Daily, # 90 tab(s), Refills(s) 4, Pharmacy: [facility], 162.5, cm, 05/24/24 14:54:00 EST, Height/Length Dosing, 74.5, kg, 05/24/24 14:54:00 EST, Weight Dosing Start Date: 06/08/24 Status: Ordered Quantity: 90.0 Unit: tab(s) Repeat number: 5 Indications: Overactive bladder; Start: 07-01-2023 take 1 tablet by mindy th once daily oxybutynin 5 mg ER Tab 5 mg = 1 tab(s), Oral, Daily, # 30 tab(s), Refills(s) 1, Pharmacy: [facility], 162.5, cm, 07/01/23 14:10:00 EDT, Height/Length Dosing, 68.8, kg, 07/01/23 14:10:00 EDT, Weight Dosing Start Date: 07/01/23 Status: Ordered Start: 07-01-2023 oxybutynin XL (Ditropan-XL) 5 MG 24 hr tablet 07/01/2023 Active PARoxetine hydrochloride 30 mg oral tablet (20 sources) Serotonin Reuptake Inhibitor Start: 10-22-2024 take 2 tablets by mouth once daily Paxil 30 mg Tab 60 mg = 2 tab(s), Oral, Daily, Refills(s) 0 Start Date: 10/22/24 Status: Ordered Repeat number: 1 Start: 12-19-2022 take 1 tablet by mindy once daily PARoxetine (PAXIL) 40 mg tablet Take 40 mg by mouth once daily. 04/10/2023 Active Start: 08-14-2020 take 1 tablet by mindy th five times daily Paxil 10 mg Tab 50 mg = 5 tab(s), Oral, Daily, one tablet 5 times a day, Depression Start Date: 08/14/20 Status: Ordered Start: 08-14-2020 take 5 tablets by [facility] once daily Paxil 10 mg Tab 50 mg = 5 tab(s), Oral, Daily, Depression Start Date: 08/14/20 Status: Ordered take 1 tablet by mindy every twenty-four hours polyethylene glycol 3350 10595 mg powder for oral solution (7 sources) Osmotic Laxative Start: 04-27-2024 take 17 g by mouth once daily Miralax 3350 17 gram packet 17 gm, Oral, Daily, # 527 gm, Refills(s) 0, Pharmacy: [facility], 162.5, cm, 04/27/24 9:37:00 EST, Height/Length Dosing, 72.8, kg, 04/27/24 9:37:00 EST, Weight Dosing Start Date: 04/27/24 Status: Ordered Quantity: 527.0 Unit: g Repeat number: 1 Indications: Constipation, unspecified; Start: 06-20-2023 polyethylene g lycol, PEG, 3350 (Glycolax) 17 GM/SCOOP powder 06/20/2023 Active reader (18 sources) Start: 01-22-2024 reader reader, See Instructions, 1 EA, 0, 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, [facility], Supply, 162.5, cm, 12/30/23 17:04:00 EDT, Height/Length Dosing, 79.1, kg, 12/30/23 17:04:00 EDT, Weight Dosing Start Date: 01/22/24 Status: Ordered Quantity: 1.0 Unit: EA Repeat number: 1 Start: 01-22-2024 reader reader, See Instructions, 1 EA, 0, 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, [facility], Supply, 162.5, cm, 12/30/23 17:04:00 EDT, Height/Length Dosing, 79.1, kg, 12/30/23 17:04:00 EDT, Weight Dosing Start Date: 01/22/24 Status: Ordered Start: 07-05-2023 reader reader, See Instructions, 1 EA, 0, 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, [facility], Supply, 162.5, cm, 07/01/23 14:10:00 EDT, Height/Length [...] Supply Start Date: 12/24/22 Status: Ordered sensors (18 sources) Start: 01-22-2024 sensors sensors, See Instructions, 2 EA, 4, francheska 2 sensors change q 14 days E11.42, [facility], Supply, 162.5, cm, 12/30/23 17:04:00 EDT, Height/Length Dosing, 79.1, kg, 12/30/23 17:04:00 EDT, Weight Dosing Start Date: 01/22/24 Status: Ordered Quantity: 2.0 Unit: EA Repeat number: 5 Start: 01-22-2024 sensors sensor s, See Instructions, 2 EA, 4, francheska 2 sensors change q 14 days E11.42, [facility], Supply, 162.5, cm, 12/30/23 17:04:00 EDT, Height/Length Dosing, 79.1, kg, 12/30/23 17:04:00 EDT, Weight Dosing Start Date: 01/22/24 Status: Ordered Start: 07-05-2023 sensors sensor s, See Instructions, 2 EA, 4, francheska 2 sensors change q 14 days, [facility], Supply, 162.5, cm, 07/01/23 14:10:00 EDT, Height/Length Dosing, 68.8, kg, 07/01/23 14:10:00 EDT, Weight Dosing Start Date: 07/05/23 Status: Ordered traMADol hydrochloride 50 mg oral tablet (5 sources) Opioid Agonist Start: 04-19-2013 TRAMADOL 50 mg tablet every 4 hours as needed. 04/19/2013 Active traZODone hydrochloride 100 mg oral tablet (20 sources) Serotonin Reuptake Inhibitor Start: 08-07-2023 traZODONE 50 mg Tab 25 mg = 0.5 tab(s), Oral, Once a day (at bedtime), # 15 tab(s), Refills(s) 3, Pharmacy: [facility], 162.5, cm, 08/07/23 11:49:00 EDT, Height/Length Dosing, 70.9, kg, 08/07/23 11:49:00 EDT, Weight Dosing Start Date: 08/07/23 Status: Ordered Start: 04-28-2023 take 1 tablet by mindy th once daily at bedtime traZODONE 50 mg Tab 50 mg = 1 tab(s), Oral, Once a day (at bedtime), # 30 tab(s), Refills(s) 5, Pharmacy: [facility], 162.5, cm, 12/30/23 17:04:00 EDT, Height/Length Dosing, 79.1, kg, 12/30/23 17:04:00 EDT, Weight Dosing Start Date: 12/30/23 Status: Ordered Start: 04-11-2023 traZODONE 50 m g Tab 25 mg = 0.5 tab(s), Oral, Daily, Refills(s) 0, Depression Start Date: 04/11/23 Status: Ordered Start: 05-23-2021 take 2 tablets by [facility] once daily at bedtime traZODONE 100 mg Tab 200 mg = 2 tab(s), Oral, Once a day (at bedtime), # 90 tab(s), Refills(s) 0, Insomnia Start Date: 05/23/21 Status: Ordered Start: 03-23-2013 TRAZODONE 100 mg tablet daily at bedtime. 03/23/2013 Active valACYclovir 1000 mg oral tablet (1 [...] 21 tab(s), Refills(s) 0, Pharmacy: [facility], 162.5, cm, 03/04/24 11:49:00 EST, Height/Length [...] Nausea/Vomiting, # 16 tab(s), Refills(s) 0, Pharmacy: [facility], 162.6, cm, 11/21/21 19:39:00 EDT, Height/Length Dosing, 81.8, kg, 11/21/21 19:39:00 EDT, Weight Dosing Start Date: 11/21/21 Status: Ordered Completed/Discontinued Medications Medication Drug Class(es) Dates Sig (Normalized) Sig (Original) acetaminophen 325 mg oral tablet (17 sources) Start: 10-04-2024 take 1 tablet by mouth three times daily as needed acetaminophen 325 mg Tab 325 mg = 1 tab(s), Oral, TID, PRN for fever, Take 1 tablet by mouth three times a day as needed, # 50 tab(s), Refills(s) 1, Pharmacy: [facility], 162, cm, 09/26/24 11:48:00 EDT, Height/Length Dosing, 71, kg, 09/26/24 11:48:00 EDT, Weight Dosing Start Date: 10/04/24 Status: Ordered Quantity: 50.0 Unit: tab(s) Repeat number: 2 Start: 08-10-2024 take 1 tablet by mindy th three times daily as needed acetaminophen 325 mg Tab 325 mg = 1 tab(s), Oral, TID, PRN for fever, Take 1 tablet by mouth three times a day as needed, # 50 tab(s), Refills(s) 1, Pharmacy: [facility], 162, cm, 08/23/24 15:21:00 EDT, Height/Length Dosing, 73, kg, 08/23/24 15:21:00 EDT, Weight Dosing Start Date: 08/31/24 Status: Ordered Quantity: 50.0 Unit: tab(s) Repeat number: 2 Start: 04-11-2023 take 325 mg by mouth three times daily acetaminophen 325 mg, Oral, TID, Refills(s) 0, Pain Start Date: 04/11/23 Status: Ordered 3 ml insulin degludec 100 unt/ml pen injector (8 sources) Insulin Analog Start: 11-08-2024 End: 12-08-2024 inject 10 [IU] by subcutaneous injection once daily in the morning insulin degludec (TRESIBA FLEXTOUCH) 100 unit/mL (3 mL) injection pen Inject 10 Units subcutaneously every morning. 11/08/2024 12/08/2024 Discontinued Start: 10-22-2024 inject 10 [IU] by mahoney bcutaneous injection once daily Tresiba 100 units/mL subcutaneous solution 10 unit(s), SubCutaneous, Daily, Refills(s) 0 Start Date: 10/22/24 Status: Ordered Repeat number: 1 insulin lispro 25 unt/ml / insulin lispro protamine, human 75 unt/ml injectable suspension (6 sources) Insulin Analog End: 12-08-2024 insulin 75/25 lispro protamine/lispro units/mL (HUMALOG MIX 75-25) 100 units/mL susp Inject subcutaneously twice daily with meals. 12/08/2024 Discontinued magnesium sulfate 225 MG / potassium chloride 188 MG / sodium sulfate 1479 MG Oral Tablet [Sutab] (1 source) Start: 04-10-2022 take 1 tablet by mouth once Sutab oral tablet See Instructions, 1 EA, Refill(s) 0, LEANDRO, Please follow instructions per packaging and physician's handout, [facility], 165, cm, 04/10/22 11:05:00 EST, Height/Length Dosing, 70.4, kg, 04/10/22 11:05:00 EST, Weight Dosing Start Date: 04/10/22 Status: Ordered potassium chloride 20 meq extended release oral tablet (20 sources) Start: 07-07-2024 take 2 tablets by mouth once daily potassium chloride 20 mEq ER Tab 40 mEq = 2 tab(s), Oral, Daily, # 180 tab(s), Refills(s) 4, Pharmacy: [facility], 162.5, cm, 06/18/24 13:24:00 EDT, Height/Length Dosing, 73.1, kg, 06/18/24 13:24:00 EDT, Weight Dosing Start Date: 07/07/24 Status: Ordered Quantity: 180.0 Unit: tab(s) Repeat number: 5 Start: 06-20-2023 potassium chlo ride 20 mEq TbER 06/20/2023 Active Start: 05-07-2023 potassium chlo ride CR (Klor-Con M20) 20 MEQ ER tablet 05/07/2023 Active Start: 02-13-2023 take 2 tablets by [facility] once daily potassium chloride 20 mEq ER [...] 0 Active take 2 tablets by mo [facility] every twenty-four hours Potassium Chloride Elena ER 20 MEQ 2 tablet with food Orally Once a day Active Problems Active Problems Problem Classification Problem Date Documented Da te Episodic/Chronic Abdominal pain (12 sources) Abdominal pain; Translations: [Unspecified abdominal pain] Onset: 2 Episodic Acute and unspecified renal failure (2 sources) Acute renal failure syndrome; Translations: [Acute kidney failure, unspecified] Onset: 2 Episodic Acute posthemorrhagic anemia (2 sources) Acute posthemorrhagic anemia; Translations: [Acute posthemorrhagic anemia] Onset: 3 Episodic Adjustment disorders (5 sources) Stress; Translations: [Reaction to severe stress, unspecified] Onset: 4 04-20-2013 Chronic Anal and rectal conditions (6 sources) Anorectal disorder; Translations: [Other specified diseases of anus and rectum] Onset: 5 Episodic Anxiety disorders (20 sources) Anxiety; Translations: [Mixed anxiety and depressive disorder] Onset: 4 04-25-2018 Chronic Bacterial infection; unspecified site (2 sources) Other specified bacterial agents as the cause of diseases classified elsewhere Episodic Cancer of rectum and anus (2 sources) High grade squamous intraepithelial lesion on anal Papanicolaou smear; Translations: [High grade squamous intraepithelial lesion on cytologic smear of anus (HGSIL)] Onset: 5 11-23-2024 Episodic Coagulation and hemorrhagic disorders (1 source) [...] [Iron deficiency anemia, unspecified] Onset: 3 Episodic Deficiency and other anemia (1 source) Iron deficiency anemia, unspecified; Translations: [Iron deficiency anemia, unspecified iron deficiency anemia type] Onset: 5 Episodic Diabetes mellitus with complications (20 sources) Diabetic peripheral neuropathy; Translations: [Hypoglycemia due to type 2 diabetes mellitus] Onset: 2 11-19-2019 Chronic Diabetes mellitus without complication (20 sources) Diabetes mellitus; Translations: [Type 2 diabetes mellitus] Onset: 4 01-11-2021 Chronic Comment on above: IDDM linked DM with HLD p er OP CDI policy. Disorders of lipid metabolism (18 sources) Hyperlipidemia; Translations: [Hyperlipidemia, unspecified] Onset: 3 [...] encounter for closed fracture] Onset: 3 Episodic Gastrointestinal hemorrhage (1 source) Hemorrhage of rectum and anus; Translations: [Hemorrhage of anus and rectum] Onset: 5 Episodic Genitourinary symptoms and ill-defined conditions (1 source) Dysuria; Translations: [Dysuria] Onset: 4 Episodic Infective arthritis and osteomyelitis (except that caused by tuberculosis or sexually transmitted disease) (1 source) Bacterial arthritis; Translations: [Pyogenic arthritis, unspecified] Onset: 3 Episodic Miscellaneous mental health disorders (3 sources) Chronic insomnia; Translations: [Psychophysiologic insomnia] Onset: 5 12-07-2024 Chronic Mood disorders (20 sources) Depressive disorder; Translations: [Recurrent major depression in partial remission] Onset: 4 12-22-2018 Chronic Comment on above: added per 03/03/2024 query response. Added per Dr. Jakub you response and outpatient CDI policy based on: [facility] report- Bipolar II disorder (F31.81) Persistent (Historical Claim) Jun 17, 2023 JOHN ARRINGTON Mycoses (20 sources) Candidiasis of skin; Translations: [Candidiasis of the esophagus] Onset: 3 02-09-2019 Episodic Nausea and vomiting (10 sources) Vomiting; Translations: [Vomiting, unspecified] Onset: 2 Episodic Nonmalignant breast conditions (20 sources) Fibrocystic disease of breast 08-14-2020 Chronic Osteoarthritis (20 sources) Arthritis; Translations: [Osteoarthrosis of the carpometacarpal joint of the thumb] Onset: 4 Resolved: 3 06-11-2013 Chronic Comment on above: left right Other aftercare (2 sources) FPC (current) use of antibiotics Episodic Other aftercare (3 sources) Long-term current use of insulin; 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] Onset: 4 Episodic [...] Chronic Other diseases of bladder and urethra (20 sources) Overactive bladder 07-01-2023 Chronic Other gastrointestinal disorders (20 sources) Irritable bowel syndrome 03-23-2020 Chronic Other gastrointestinal disorders (1 source) Diarrhea; Translations: [Diarrhea, unspecified] Onset: 2 Episodic Other gastrointestinal disorders (8 sources) Heartburn; Translations: [Heartburn] Onset: 3 Episodic Other gastrointestinal disorders (20 sources) Dysphagia; Translations: [Dysphagia, unspecified] Onset: 3 Episodic Other injuries and conditions due to external causes (3 sources) Injury of head; Translations: [Unspecified injury of head, initial encounter] Onset: 3 Episodic Other injuries and conditions due to external causes (3 sources) History of fall; Translations: [History of falling] Onset: 4 Episodic Other injuries and conditions due to external causes (1 source) Traumatic AND/OR non-traumatic injury; Translations: [Other injury of unspecified body region, initial encounter] Onset: 5 Episodic Other nervous system disorders (20 sources) [...] Episodic Other nutritional; endocrine; and metabolic disorders (14 sources) Overweight in adulthood with body mass index of 25 or more but less than 30; Translations: [Body mass index (BMI) 26.0-26.9, adult] Onset: 4 Episodic Other nutritional; endocrine; and metabolic disorders (2 sources) Overweight; Translations: [Overweight] Onset: 4 Episodic Other screening for suspected conditions (not mental disorders or infectious disease) (20 sources) Full blood count abnormal; Translations: [Encounter for screening mammogram for malignant neoplasm of breast] Onset: 5 08-14-2020 Episodic Other skin disorders (20 sources) Mass of neck 12-29-2018 Episodic Residual codes; unclassified (20 sources) Chronic pain 07-21-2019 Episodic Residual codes; unclassified (20 sources) Insomnia; Translations: [Insomnia, unspecified] Onset: 5 Resolved: 3 10-31-2017 Episodic Residual codes; unclassified (2 sources) Procedure carried out on subject; Translations: [Encounter for prophylactic measures, unspecified] Onset: 2 Episodic Residual codes; unclassified (12 sources) Patient encounter status; Translations: [Other specified [...] by health care provider] Onset: 3 Episodic Sprains and strains (2 sources) Thoracic back sprain; Translations: [Sprain of unspecified parts of thorax, initial encounter] Onset: 3 Episodic Substance-related disorders (20 sources) Smoker; Translations: [Nicotine dependence] Onset: 2 06-14-2021 Chronic Comment on above: Added secondary to d ocumentation in Social History. Superficial injury; contusion (5 sources) Contusion of hip; Translations: [Contusion of unspecified hip, initial encounter] Onset: 3 Episodic Thyroid disorders (20 sources) Hypothyroidism; Translations: [Hypothyroidism, unspecified] Onset: 3 12-22-2018 Chronic Unclassified (8 sources) Extended spectrum beta-lactamase producing bacteria carrier Onset: 4 01-07-2024 Comment on above: ESBL E coli in urine 12/30/2023 ESBL E coli in urine 10/23/2024 Unclassified (8 sources) Long-term current use of insulin 03-03-2024 Comment on above: Current Medication L ist includes Lantus. added per OP CDI policy. Unclassified (3 sources) Prescribed medication regimen behavior finding 10-22-2024 Unclassified (5 sources) Autogenerated Problem Onset: 5 11-23-2024 Unclassified (2 sources) Long-term current use of opiate analgesic drug Onset: 5 12-07-2024 Comment on above: Added secondary to c urrent Opioid Treatment Agreement Urinary tract infections (20 sources) Urinary tract infectious disease; Translations: [Urinary tract infection, site not specified] Onset: 3 Episodic Viral infection (20 sources) Herpes zoster with complication; Translations: [Zoster with other complications] Onset: 4 Episodic Past or Other Problems Problem Classification Problem Date Documented Date Episodic/Chronic Calculus of urinary tract (20 sources) Kidney stone Resolved: 1 10-31-2017 Episodic Other aftercare (1 source) 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; Translations: [Other specified diabetes mellitus without complication, with long-term current use of insulin (HCC)] Onset: 4 Episodic Spondylosis; intervertebral disc disorders; other back problems (20 sources) Backache; Translations: [Low back pain] Onset: 4 04-25-2018 Episodic Unclassified (1 source) 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; Translations: [Carrier of other Enterobacterales] Onset: Results Test Name Value Interpretation Reference Range Facility Ambulatory Visit Summaryon 0 12-12-2024 Ambulatory Visit Summary Ambulatory Visit Summary FARTUN SCHNEIDER :1955 Visit Date:12/07/2024 Ambulatory Visit Instructions Your Diagnosis Encounter for annual wellness visit (AWV) in Medicare patient Bipolar disorder DM2 (diabetes mellitus, type 2) Diabetes mellitus with polyneuropathy Type 2 diabetes mellitus with hyperlipidemia 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 HTN (hypertension) Hypothyroidism Insomnia Breast cancer screening by mammogram Over weight Your Care Team Attending Physician Marcelo William DO Primary Care Physician - Mracelo Call DO This Is Your Medications List Misc Prescription (OffScale Multi Blood Glucose Monitoring System) Misc Prescription (reader) Misc Prescription (sensors) acetaminophen (acetaminophen 325 mg Tab) acetaminophen-oxycodone (acetaminophen-oxycodone 325 mg-5 mg Tab) ascorbic acid (ascorbic acid 500 mg Tab) atorvastatin (atorvastatin 40 mg Tab) bisacodyl (bisacodyl 5 mg Oral EC Tab) buPROPion (BuPROPion (Eqv-Wellbutrin SR) 150 mg/12 hours oral tablet, extended release) carvedilol (carvedilol 12.5 mg Tab) diazepam (diazepam 2 mg Tab) dicyclomine (Bentyl 10 mg Cap) dulaglutide (dulaglutide 0.75 mg/0.5 mL subcutaneous solution) ferrous sulfate (ferrous sulfate 325 mg Tab) gabapentin (gabapentin 300 mg Cap) gabapentin (gabapentin 600 mg Tab) insulin aspart (insulin aspart 100 units/mL injectable solution) insulin degludec (Tresiba 100 units/mL subcutaneous solution) levothyroxine (levothyroxine 112 mcg (0.112 mg) Tab) lisinopril (lisinopril 10 mg Tab) nystatin topical (nystatin Top 100,000 units/g Pwdr) omeprazole (omeprazole 20 mg Cap-DR) ondansetron (ondansetron 4 mg Tab) oxybutynin (oxybutynin 5 mg ER Tab) paroxetine (Paxil 30 mg Tab) polyethylene glycol 3350 (Miralax 3350 17 gram packet) potassium chloride (potassium chloride 20 mEq ER Tab) trazodone (traZODONE 100 mg Tab) Procedures Performed Colonoscopy (10/26/2024), EGD - esophagogastroduodenoscopy (10/26/2024), Colonoscopy (09/28/2024), Endoscopy (09/28/2024), Aspiration of hip joint (04/11/2023), Aspiration of hip joint (02/13/2023), Repair of fracture of hip by nailing using fluoroscopic guidance (12/20/2022), History of hemiarthroplasty of right hip (11/25/2022), Esophagogastroduodenoscopy (05/09/2022), Arthroscopy of shoulder (08/16/2020), Excision of mass of neck (03/11/2019), Arthroplasty of finger (03/10/2018), percutaneous pinning left hip (10/03/2014), left total knee replacement with hardware removal (12/07/2013), right total knee arthroplasty (06/08/2013), Right knee (12/14/2012), BASILAR ARTHROPLASTY OF THUMB, Cyst - diagnostic aspiration, ESWL of kidney, gallbladder removed, jaw surgery, left knee ORIF, RENY BSO - Total abdominal hysterectomy and bilateral salpingo-oophorectomy, 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. Discharge Vitals Heart Rate (Peripheral) 67 Blood Pressure 136/70 Height 160 cm Height 63 in Weight 72.6 kg Weight 160.055 lb BMI 28.36 What to do next Scheduled Follow-Up Appointments Friday 12:30 PM EDT Where: [facility] Friday 1:00 PM EDT Where: [facility] 2025 9:30 AM EDT Where: [address] [place] [address]- You Need to Complete the Following [facility] DEXA, 01/14/25, Routine, Order for Future Visit, Transport Mode: Ambulatory, Reason: Post menopausal, Reason: Z12.31, Primary ovarian failure, No, 160, pp_set_radiology_subspecial ty, Not Required, [facility] Mamm Screen w/CAD if perf and 3D Mono, 01/14/25, Routine, Order for Future Visit, Transport Mode: Ambulatory, Reason: Screening, Reason: Z12.31, No, No, No, Breast cancer screening by mammogram, No breast implants, pp_set_radiology_subspecial ty, Required & Missing, [facility] Medications What How Much When Why Instructions Unchanged acetaminophen (acetaminophen 325 mg Tab) 1 Tablets By Mouth 3 times a day as needed for for fever Take 1 tablet by mouth three times a day as needed Unchanged acetaminophen-oxycodone (acetaminophen-oxycodone 325 mg-5 mg Tab) 1 Tablets By Mouth 3 times a day as needed for for pain Chronic pain May take between 8am and 8pm 30 day supply Unchanged ascorbic acid (ascorbic acid 500 mg [...] By Mouth 2 times a day Unchanged diazepam (diazepam 2 mg Tab) 1 Tablets By Mouth 3 times a day Depression with anxiety For 30 day supply Unchanged dicyclomine (Bentyl 10 mg Cap) 1 Capsules By Mouth 4 times a day Unchanged dulaglutide (d (more content not included)... [facility] Family Medicine Office/Clini c Noteon 12-12-2024 Family Medicine Office/Clinic Note Family Medicine Office/Clinic Note Chief Complaint Medicare Wellness Visit History of Present Illness I was in the office and available for consultation and to provide direct supervision at the time of this visit. I have provided supervision of the care team and have reviewed this chart and office note and agree with the plan of care. Physical Exam Vitals & Measurements HR: 67(Peripheral) BP: 136/70 SpO2: 96% HT: 63 in HT: 160 cm WT: 160.055 lb WT: 72.6 kg BMI: 28.36 Assessment/Plan 1. Encounter for annual wellness visit (AWV) in Medicare patient (Z00.00: Encounter for general adult medical examination without abnormal findings) The patient was given a customized and personalized print out of all the current AHRQ USPSTF???s recommendations for preventative services and all current CDC recommended immunizations, relevant risk recommendations and the following patient brochures were given. Reviewed What can I expect during my Medicare preventative care visit [facility]-F[facility] Prevention and home safety screening reviewed. Patient denies any falls in last 12 months, voices no worry about falling, exhibits no problems with sitting and standing. Pt voices understanding with keeping walk way area free of clutter to prevent tripping and/or falling. [place] Advance Directives reviewed, on file in chart. Patient denies any problems with ADL???s and Instrumental ADL???s. Cognitive screening completed with memory and clock [...] up to date. Blood tests were reviewed: UTD Reviewed concerns with bladder control over past 6 months with no concerns. Reviewed pain symptoms with patient: Patient with c/o 6/10 right hip pain. Patient states use of Percocet, Ice and Valium helps relieve the pain. Reviewed all outside providers that patient follows. Last visit summary notes available in chart and/or have been requested. Follow up scheduled for today AWV has been scheduled, 11/2025 Medicare provides yearly screening for alcohol and depression concerns. This is completed during our Medicare wellness visit for those who do not have a current diagnosis of depression or concerns with alcohol use. I spent a total of 17 minutes on this date of service which included preparing to see the patient, face to face patient care, completing clinical documentation, obtaining and/or reviewing separately obtained history, counseling and educating the patient with handouts. Explanations were provided with reviewing questionnaires. AUDIT risk assessment screening completed, risk score (0). 2. Bipolar disorder (F31.9: Bipolar disorder, unspecified) Patient states she follows with psychiatrist in [place] and a CREATIVE/ART DIRECTOR in [place] for medication management of Wellbutrin and Paxil. 3. DM2 (diabetes mellitus, type 2) (E11.9: Type 2 diabetes mellitus without complications) DM stoplight handout reviewed with signs and symptoms to monitor for and report to PCP. Discussed ADA dietary recommendations with handouts provided. Encouraged to increase daily physical activity, adequate water intake, monitor carbs/chol and fats. Currently taking Trulicity, Aspart, Tresiba as directed. Monitoring BS at home ([facility] nursing staff monitors). Follows up as directed with DM foot check with Dr. Call, reminded patient to perform at home foot checks to prevent future complications. DM eye exams completed yearly with Dr. Call. 4. Diabetes mellitus with polyneuropathy (E11.42: Type 2 diabetes mellitus with diabetic polyneuropathy) See #3. Patient has no complaints of numbness/pain in arms,hands,legs, feet. Patient follows with PCP as directed for medications or testing. Denies further questions or concerns. 5. Type 2 diabetes mellitus with hyperlipidemia (E11.69: Type 2 diabetes mellitus with other specified complication) See #3. Patient encouraged to eat a diet that is low in saturated fats. Stressed importance of losing weight and maintaining a healthy BMI. As BMI of 28.36 is overweight and does produce more lipids. Monitor alcohol intake and avoid smoking. Risks may also increase with a family history of hyperlipidemia. Patient voices understanding with healthy dietary choices to reduce risk factors associated with CVA. Taking statin medication daily. Will continue to follow up with labs as directed. 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 Follows up with PCP with needed labs, DM supplies and dosage adjustments as needed. 7. HTN (hypertension) (I10: Essential (primary) hypertension) Patient taking carvedilol an (more content not included)... [facility] Comment on above: Result Comment: Elec tronically Signed By: Marcelo Call DO\.br\Date and Time Signed: 12/12/24 10:21 EDT\.br\Electronically Co-Signed By: Lynn Liz RN\.br\Date and Time Co-Signed: 12/07/24 11:06 EDT ANES POSTPROC EVALon 025 ANES POSTPROC EVAL HNO ID: [id number] Author: MARC MEDINA DO Service: Anesthesiology Author Type: Anesthesiologist Type: Anesthesia Postprocedure Evaluation Filed: 12/10/2024 17:12 Note Text: POST ANESTHESIA EVALUATION NOTE : 1955 Procedure Summary Date: 12/10/24 Room / Location: OR02 / [facility] Anesthesia Start: 1520 Anesthesia Stop: 1625 Procedure: EXCISE RECTAL TUMOR VIA TRANSANAL APPROACH (Anus) Diagnosis: Anorectal polyp (Anorectal polyp [K62.0, K62.1]) Surgeons: Jenna Cordova MD Responsible Provider: Marc Medina DO Anesthesia Type: MAC ASA Status: 3 Anesthesia Type: MAC Last Vitals Vitals Value Taken Time BP 169/100 12/10/24 17:00 Temp 37.6 ?C (99.7 ?F) 12/10/24 16:25 Pulse 55 12/10/24 17:12 Resp 11 12/10/24 17:12 SpO2 98 % 12/10/24 17:12 Vitals shown include unfiled device data. Post Anesthesia Patient Status Patient Evaluation: PACU. PACU/ICU Patient Condition: stable. Anticipated Disposition: inpatient floor planned admission. Neurological Status: aware and responsive. Pulmonary Status: breathing comfortably on room air Airway Control: returned to baseline unsupported. Cardiovascular Status: stable. Pain Management: clinically adequate Postoperative Hydration: acceptable. Intraoperative Events: no significant anesthesia events Post Operative Nausea/Vomiting Status: no significant post operative nausea or vomiting Recommendation: continue current plan of care. Anesthesia Observations No Documentation SIGNATURE: Marc Medina DO PATIENT NAME: Fartun Schneider DATE: December 10, 2024 TIME: 5:12 PM CSN: [id number] [facility] ANES PRE-OPon 12-10-2024 ANES PRE-OP HNO ID: [id number] Author: ISAAK BROOKE MD Service: Anesthesiology Author Type: Anesthesiologist Type: Anesthesia Preprocedure Evaluation Filed: 12/10/2024 14:43 Note Text: ANESTHESIOLOGY DAY OF SURGERY NOTE : 1955 Procedure Information Date/Time: 12/10/24 1445 Procedure: EXCISE RECTAL TUMOR VIA TRANSANAL APPROACH (Anus) - excision anorectal polyp Location: [facility] OR02 / [facility] Surgeons: Jenna Cordova MD Estimated body mass index is 27.73 kg/m? as calculated from the following: Height as of 12/08/24: 160 cm (5' 3 ). Weight as of 12/08/24: 71 kg (156 lb 8.4 oz). Most recent hematocrit and potassium results: No results found for this basename: HCT,HEMATOCRIT,K,POTASSIUM Relevant Problems CARDIO (+) HTN (hypertension) ENDO (+) Hypothyroidism GI (+) Chronic GERD Other (+) Arthritis of both knees //GERD - well controlled, denies s/s of acid reflux today //GLP1 Agonist Use - last dose of Trulicity exactly 10 days ago. Patient denies nausea/fullness currently and reports feeling hungry. Other Medical Problems/ Important Considerations: Denies chest pain and SOB with exertion. Does not exercise. Denies change in functional capacity. I - PHYSICAL EVALUATION AIRWAY Patient intubated: No. Tracheostomy tube not present Mallampati: I. TM distance: >3 FB. Neck ROM: full ROM without neurological symptoms. Mouth openin FB. Short neck: no. Thick neck: no DENTAL Dental findings: edentulous. II - ANESTHESIA PLAN ASA Score: 3 Anesthetic Plan: MAC The patient is not a current smoker. NPO Status: adequate Monitoring Plan Monitoring plan: standard ASA. Post Procedure Analgesic Plan Postoperative analgesic plan: multimodal analgesia and per surgical service. Informed Consent Anesthetic risks, benefits, alternatives, personnel and consent discussed: yes. Patient / Responsible Republican agrees to proceed: yes Patient / Surrogate agrees to blood products: Yes Significant changes in the patient condition since the History and Physical, not otherwise documented in primary service progress note: no. Potential Anesthesia issues that may suggest increased risk of complications or contraindication to planned procedure: none. Vitals Value Taken Time BP 158/62 12/10/24 14:00 Pulse 60 12/10/24 14:00 Resp 18 12/10/24 14:00 Temp 36.4 ?C (97.5 ?F) 12/10/24 14:00 SpO2 98 % 12/10/24 14:00 Facility-Administered Medications as of 12/10/2024 Medication Dose Route Frequency lidocaine (PF) 10 mg/mL (1 %) 1-2 mg injection (XYLOCAINE) 0.1-0.2 mL INTRADERMAL PRN lactated ringers iv infusion 5-30 mL/hr INTRAVENOUS CONTINUOUS NaCl 0.9% iv flush bag 20 mL INTRAVENOUS PRN Outpatient Medications as of 12/10/2024 Medication Sig insulin aspart U-100 (NOVOLOG) 100 unit/mL (3 mL) pen Inject 9 Units subcutaneously as needed (elevated glucose). diazePAM (VALIUM) 2 mg tablet Take 2 mg by mouth every 12 hours. ferrous sulfate 325 mg (65 mg iron) tablet Take 325 mg by mouth once daily. omeprazole (PRILOSEC) 20 mg capsule Take 20 mg by mouth once daily. buPROPion (WELLBUTRIN) 75 mg tablet Take 75 mg by mouth two times a day. PARoxetine (PAXIL) 40 mg tablet Take 40 mg by mouth once daily. TRAZODONE 100 mg tablet daily at bedtime. LISINOPRIL 10 mg tablet once daily. CITALOPRAM HYDROBROMIDE (CELEXA ORAL) Take by mouth once daily. dicyclomine (BENTYL) 10 mg capsule Take 10 mg by mouth before meals and at bedtime. nystatin (MYCOSTATIN) powder Apply 1 application to affected area two times a day. ondansetron orally disintegrating (ZOFRAN ODT) 4 mg disintegrating tablet Take 4 mg by mouth every 8 hours as needed. oxyCODONE-acetaminophen (PERCOCET) 5-325 mg tablet Take 1 tablet by mouth every 6 hours as needed. potassium chloride 20 mEq TbER TRULICITY 0.75 mg/0.5 mL pen injector Inject 0.75 mg subcutaneously one time a week. TRAMADOL 50 mg tablet every 4 hours as needed. I have interviewed and examined the patient. I have reviewed the medical record and/or the pre-anesthesia evaluation, pertinent labs, and test results. This contains updated information obtained within 48 hours of Surgery/Procedure. SIGNATURE: Isaak Brooke MD PATIENT NAME: Fartun Schneider DATE: December 10, 2024 TIME: 2:41 PM CSN: [id number] [facility] BRIEF OP NOTon 12-10-2024 BRIEF OP NOT HNO ID: [id number] Author: EVA ARANA MD Service: Colorectal Author Type: Resident Type: Brief Op Note Filed: 12/10/2024 16:32 Note Text: GENERAL SURGERY BRIEF OP NOTE LOG ID: [id number] Surgery/Procedure Date: 12/10/2024 Incision/Procedure Start Time: 3:39 PM Incision Close/Procedure End Time: 4:10 PM Surgeon(s) and Lithographers Printer(s): Surgeons and Role: * Jenna Cordova MD - Primary * Eva Arana MD - Resident - Assisting No Additional Staff Procedure(s): Procedure(s) with comments: EXCISE RECTAL TUMOR VIA TRANSANAL APPROACH - excision anorectal polyp Anesthesia: Monitored Anesthesia Care Findings: Rectal mass submucosal excision. Tubes/Drains: None Estimated Blood Loss: 10 mls Estimated Urine Output: Specimens: See below ID Type Source Tests Collected by Time Destination A : anal rectal mass short strand proximal , long strand lateral Tissue Anal Canal, Biopsy SURGICAL PATHOLOGY Jenna Cordova MD 12/10/2024 3:58 PM Implants: * No implants in log * Wound Classification: Class 4, operative dirty wound with fecal contamination Complications: None Pre-Op/Pre-Procedure Diagnosis: Pre-Op Diagnosis Codes: * Anorectal polyp [K62.0, K62.1] Post-Op/Post-Procedure Diagnosis: Same SIGNATURE: Eva Patel MD PATIENT NAME: Fartun Schneider DATE: December 10, 2024 TIME: 4:30 PM PAGER/CONTACT #: [facility] OPERATIVE NOon 12-10-2024 OPERATIVE NO HNO ID: [id number] Author: JENNA CORDOVA MD Service: Colorectal Author Type: Physician Type: Operative Report Filed: 12/10/2024 16:43 Note Text: COLON AND RECTAL SURGERY OPERATIVE REPORT PATIENT NAME: Fartun Schneider ADMISSION DATE: 12/10/2024 LOG ID: [id number] SURGERY/PROCEDURE DATE: 12/10/2024 INCISION/PROCEDURE START TIME: 3:39 PM INCISION CLOSE/PROCEDURE END TIME: 4:10 PM AGE: [age] year old SEX: female SURGEON(S)/PROCEDURALIST(S) AND FLOWER 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 R/B/A of surgical excision was discussed with patient and informed consent obtained. OPERATIVE FINDINGS: ~4cm long mobile mass (polypoid) starting in anal canal and extending into distal rectum. It was located posteriorly, right of midline. DESCRIPTION OF PROCEDURE: The patient was brought to the operating room and placed under MAC anesthesia in andrew-prone position. The patient received appropriate preop antibiotics and DVT prophylaxis. A surgical time-out was performed. An anal block was performed with 35cc of 0.5% Marcaine mixed with exparel. A detailed digital rectal exam and anoscopy was performed which revealed ~4cm long mobile mass (polypoid) starting in anal canal and extending into distal rectum. It was ~2-3cm wide. It was located posteriorly, right of midline. A 1 cm margin was scored circumferentially around the lesion. There were areas of lateral spreading which was lifted with injectable saline. Starting at the anoderm/hemorrhoidal tissue, the tumor was excised in the submucosal plane. Hemostasis was obtained in the wound. The wound was then closed longitudinally with a continuous 3'0 vicryl suture. The wound was interrogated and was closed completely. The patency of the lumen was then confirmed. Gelfoam packing was placed. ESTIMATED BLOOD LOSS: 25cc SPECIMENS: anorectal mass, short morrison proximal, long- left DRAINS: None COMPLICATIONS: None INTRAOPERATIVE FLUIDS: See anesthesia record. SPONGE/INSTRUMENT/NEEDLE COUNTS: Correct x2. PRESENCE STATEMENT: I was present for the entire procedure as I have dictated above. Jenna Cordova M.D. Department of Surgery Division of Colon and Rectal Surgery [facility] HISTORY PHYSICALon HISTORY PHYSICAL HNO ID: [id number] Author: KRISTIN JUSTICE PA-C Service: ? Author Type: Physician Lithographers Printer Type: H&P Filed: 12/09/2024 07:56 Note Text: [facility] HISTORY AND PHYSICAL EXAMINATION SERVICE DATE: 12/08/2024 SERVICE TIME: 11:09 AM PRIMARY CARE PHYSICIAN: Emanuel Rutledge MD, MD REASON FOR VISIT: Fartun Schneider is a 69 year old female who is scheduled for EXCISE RECTAL TUMOR VIA TRANSANAL APPROACH at the request of Dr. Jenna Cordova for consultation. My final recommendation will be communicated back to the requesting physician by way of shared medical record or letter. Assessment 1. Pre-op evaluation (Z01.818) - Undergoing risk assessment for upcoming surgery on 12/10/2024 for removal of anal-rectal and colonic lesions found on colonoscopy last month. - No prior anesthesia complications reported. - Advised to follow bowel prep instructions and maintain clear liquid diet the day before surgery; no solid food starting tomorrow. 2. Primary hypertension (I10) - Stable on current regimen; continue lisinopril as prescribed. Asymptomatic, PCP following. Last 14 BP Last 14 Encounter BP Readings: Date: BP: 12/08/2024 122/51 11/23/2024 148/63 11/11/2013 158/81 04/20/2013 130/74 3. Mixed hyperlipidemia (E78.2) - Stable on current regimen; continue atorvastatin as prescribed. No cardiac stents. 4. Chronic GERD (K21.9) - Well-controlled on omeprazole. 5. Other specified diabetes mellitus without complication, with long-term current use of insulin (HCC) (E13.9) - Well-controlled; most recent A1c 5.7% two weeks ago, prior A1c 5.3% per patient. Will get updated labs from assisted living. Fasting glucose today was 103. - On Lantus 10 units nightly, Novolog PRN for elevated blood glucose, and Trulicity (held for surgery), last dose 11/29/24. Advised clear liquid diet 24 hours prior to surgery, patient already planning this to complete bowel prep. - Advised to hold Novolog on the morning of surgery. - Advised to take 75% of usual Lantus dose the evening before surgery; if unable, may take usual dose. 12/09/24: Received outside labs and confirmed A1c from 11/30/24 was 5.7. 6. Iron deficiency anemia, unspecified iron deficiency anemia type (D50.9) - Stable; continue oral iron supplementation. Per patient, her recent labs were stable. Will get updated labs. Asymptomatic. 12/09/24: Received outside labs and CBC from 09/24/24 showing H/H at 10.8/32.1. 7. Bipolar affective disorder, remission status unspecified (HCC) (F31.9) - Stable on current regimen; continue Valium, Paxil, bupropion, and Celexa as prescribed. ANESTHESIA FINDINGS: Intubation History: No history of difficult intubation Significant Anesthesia Considerations: none Airway History: No history of difficult airway [place] Activity Status Index: METS: Walk indoors, such as around the house (1.75 METs) Do light work around the house, such as dusting or washing dishes (2.70 METs) Take care of self; that is eating, dressing, bathing, using the toilet (2.75 METs) Walk a block or two on level ground (2.75 METs) DASI Score: 9.95 (Uses walker for ambulation) Patient denies any chest pain or undue shortness of breath with the above physical activity. Clinical Frailty Scale: 3. Well, with treated comorbid disease STOP-Bang Score: Has or is being treated for high blood pressure Patient over 50 years old Denies snoring loudly Has not been observed to stop breathing or choking/gasping during sleep BMI less than or equal to 35 kg/m2 Does not have a large neck Non-male patient STOP-Bang Score: 2 I - PHYSICAL EVALUATION AIRWAY Patient intubated: No. Tracheostomy tube not present Mallampati: I. TM distance: >3 FB. Neck ROM: full ROM without neurological symptoms. Mouth openin FB. Short neck: no. Thick neck: no Ruiz present: no Lip Bite Test: II Microretrognathia/Micronagt hia/Recessed Chin: No DENTAL Dentures, upper: complete. Dentures, lower: complete. II - ANESTHESIA PLAN Informed Consent Prepared for surgery: This patient is optimally prepared for surgery. CONSULTS: PCP for recent labs. Letter faxed to patient's assisted living facility where she recently had updated labs. 12/09/24: Received outside labs and scanned into chart. The Following Tests/Procedures Have Been Initiated: Orders Placed This Encounter DISCONTD: insulin glargine (LANTUS) 100 unit/mL injection Sig: Inject 100 Units subcutaneously daily at bedtime. insulin aspart U-100 (NOVOLOG) 100 unit/mL (3 mL) pen Sig: Inject 9 Units subcutaneously as needed (elevated glucose). insulin glargine (LANTUS) 100 unit/mL injection Sig: Inject 10 Units subcutaneously daily at bedtime. Order Comments: Generic or brand: dispense product preferred by patient/insurance unless LEANDRO flag is selected. , EKG not indicated per [facility] protocol Labs reviewed (more content not included)... [facility] Ambulatory Visit Summaryon 0 12-07-2024 Ambulatory Visit Summary Ambulatory Visit Summary FARTUN SCHNEIDER :1955 Visit Date:12/07/2024 Ambulatory Visit Instructions Your Diagnosis DM2 (diabetes mellitus, type 2) HTN (hypertension) Chronic insomnia Obesity BMI 28.0-28.9,adult Non-smoker Your Care Team Attending Physician - Marcelo Call DO Primary Care Physician - Marcelo Call DO This Is Your Medications List Misc Prescription (OffScale Multi Blood Glucose Monitoring System) Misc Prescription (reader) Misc Prescription (sensors) acetaminophen (acetaminophen 325 mg Tab) acetaminophen-oxycodone (acetaminophen-oxycodone 325 mg-5 mg Tab) ascorbic acid (ascorbic acid 500 mg Tab) atorvastatin (atorvastatin 40 mg Tab) bisacodyl (bisacodyl 5 mg Oral EC Tab) buPROPion (BuPROPion (Eqv-Wellbutrin SR) 150 mg/12 hours oral tablet, extended release) carvedilol (carvedilol 12.5 mg Tab) diazepam (diazepam 2 mg Tab) dicyclomine (Bentyl 10 mg Cap) dulaglutide (dulaglutide 0.75 mg/0.5 mL subcutaneous solution) ferrous sulfate (ferrous sulfate 325 mg Tab) gabapentin (gabapentin 300 mg Cap) gabapentin (gabapentin 600 mg Tab) insulin aspart (insulin aspart 100 units/mL injectable solution) insulin degludec (Tresiba 100 units/mL subcutaneous solution) levothyroxine (levothyroxine 112 mcg (0.112 mg) Tab) lisinopril (lisinopril 10 mg Tab) nystatin topical (nystatin Top 100,000 units/g Pwdr) omeprazole (omeprazole 20 mg Cap-DR) ondansetron (ondansetron 4 mg Tab) oxybutynin (oxybutynin 5 mg ER Tab) paroxetine (Paxil 30 mg Tab) polyethylene glycol 3350 (Miralax 3350 17 gram packet) potassium chloride (potassium chloride 20 mEq ER Tab) trazodone (traZODONE 100 mg Tab) Procedures Performed Colonoscopy (10/26/2024), EGD - esophagogastroduodenoscopy (10/26/2024), Colonoscopy (09/28/2024), Endoscopy (09/28/2024), Aspiration of hip joint (04/11/2023), Aspiration of hip joint (02/13/2023), Repair of fracture of hip by nailing using fluoroscopic guidance (12/20/2022), History of hemiarthroplasty of right hip (11/25/2022), Esophagogastroduodenoscopy (05/09/2022), Arthroscopy of shoulder (08/16/2020), Excision of mass of neck (03/11/2019), Arthroplasty of finger (03/10/2018), percutaneous pinning left hip (10/03/2014), left total knee replacement with hardware removal (12/07/2013), right total knee arthroplasty (06/08/2013), Right knee (12/14/2012), BASILAR ARTHROPLASTY OF THUMB, Cyst - diagnostic aspiration, ESWL of kidney, gallbladder removed, jaw surgery, left knee ORIF, RENY BSO - Total abdominal hysterectomy and bilateral salpingo-oophorectomy, 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. Discharge Vitals Heart Rate (Peripheral) 67 Respiratory Rate 18 Blood Pressure 136/70 Height 160 cm Height 63 in Weight 72.6 kg Weight 160.055 lb BMI 28.36 What to do next Scheduled Follow-Up Appointments Friday 12:30 PM EDT Where: [facility] Friday 1:00 PM EDT Where: [facility] 2025 9:30 AM EDT Where: [facility] [address] [place] [address]- You Need to Schedule the Following Appointments Follow Up with Marcelo Call DO, FAM When: Within 6 weeks Comments: 6 WEEKS FOLLOWUP Where: [address] [place] [address]- Follow Up with Marcelo Call DO, FAM When: Within 3 months Comments: 3 MONTH DIABETIC CHECKUP Where: [address] [place] [address]- You Need to Complete the Following [facility] DEXA, 01/14/25, Routine, Order for Future Visit, Transport Mode: Ambulatory, Reason: Post menopausal, Reason: Z12.31, Primary ovarian failure, No, 160, pp_set_radiology_subspecial ty, Not Required, Lyle Denney MA Mamm Screen w/CAD if perf and 3D Mono, 01/14/25, Routine, Order for Future Visit, Transport Mode: Ambulatory, Reason: Screening, Reason: Z12.31, No, No, No, Breast cancer screening by mammogram, No breast implants, pp_set_radiology_subspecial ty, Required & Missing, Lyle Denney Medications What How Much When Why Instructions Unchanged acetaminophen (acetaminophen 325 mg Tab) 1 Tablets By Mouth 3 times a day as needed for for fever Take 1 tablet by mouth three times a day as needed Unchanged acetaminophen-oxycodone (acetaminophen-oxycodone 325 mg-5 mg Tab) 1 Tablets By Mouth 3 times a day as needed for for pain Chronic pain May take between 8am and 8pm 30 day supply Unchanged ascorbic acid (ascorbic acid 500 mg [...] By Mouth 2 times a day Unchanged diazepam (diazepam 2 mg Tab) 1 Tablets (more content not included)... [facility] Family Medicine Office/Clini c Noteon 12-07-2024 Family Medicine Office/Clinic Note Family Medicine Office/Clinic Note Chief Complaint Chronic Condition Follow Up HPI Staff Patient here for Chronic Condition f/u Patient is here for follow up on Diabetes. How often are you checking your blood sugars? 3 times per day What are your average readings?Completed by Kamlesh Boyd Do you have any of the following symptoms? Vision problems? no GI-Nausea/vomiting/bloating ? yes bloating Lightheadedness? no Paresthesias, Ulcerations or sores? yes bilateral lower extremities Paresthesias Foot Exam: 06/18/24 Eye Exam: per patient 2024 U Microalb: 0.9 mg/dL (11/28/23 11:48:00) - Please order for Kamlesh Boyd Hgb A1c POC: 12/01/24, 5.7, Kamlesh Boyd Patient is here for follow up on hypertension. How often are you checking your blood pressure? Doesn't check BP at home Do you have any of the following symptoms? Chest Pain? no Palpitations? no ALVARADO/SOB? no Headache? no Peripheral Edema? no BUN: 5 mg/dL (10/25/24 06:08:00) Calcium Lvl: 8.4 mg/dL Low (10/25/24 06:08:00) Chloride: 111 mmol/L (10/27/24 06:07:00) CO2: 28 mmol/L (10/27/24 06:07:00) Creatinine: 0.6 mg/dL (10/25/24 06:08:00) eGFR: 96 mL/min/1.73 m2 (10/25/24 06:08:00) Glucose Lvl: 135 mg/dL (10/25/24 06:08:00) Potassium Lvl: 3.6 mmol/L (10/27/24 06:07:00) Sodium Lvl: 144 mmol/L (10/27/24 06:07:00) Lipid Panel: 11/24/24, Kevenaurora Oliver Patient is here for follow up on Thyroid Disease. Thyroid Labs: 11/24/24Kevenaurora Oliver Follow up for Mental Status: Medication adherence- Yes, takes medication as prescribed Medication refill needed: yes Suicidal thoughts-Not at this time Med Ag: Completed today UDS: Please order for Kevenaurora Boyd to complete - Patient would like to discuss a prescription for CGM and would like to discuss increasing Valium. AMW: Today Dexa/Rex: per patient 2022 [place]: 10/26/24, repeat in 10 years History of Present Illness Patient presents today for DM recheck. - Ongoing issues with patient's findings of UTI due to incontinence - Changed over Ativan back to Diazepam since last visit at patient request Last A1c - 5.7% on 12/01/2024 Current medications - Dulaglutide 0.75mg subQ weekly, Lantus 15U subQ QHs Diabetic neuropathy - Yes, on gabapentin 300mg TID Diabetic retinopathy - None reported, up to date on eye appointments per patient report Diabetic education - Completed at prior practice Urine microalbumin - 11/28/2023 - 0.9 Diabetic foot exam - 06/18/2024 Statin - atorvastatin 40mg QD OARRS reviewed: Yes Medication Agreement updated: Yes Urine Drug Screen done: Yes 11/28/2023 Pill Count Done: No Today, patient states that she is doing well, she has remained controlled for her diarrhea from last visit. She would like to discuss increased anxiety. She states that she has considered an increase in her Valium, would like to discuss today. Review of Systems ROS - Provider Constitutional: no fever, no chills Skin: yes rash, no lesions ENMT: no ear pain, [...] swings/depression. Physical Exam Vitals & Measurements HR: 67(Peripheral) RR: 18 BP: 136/70 SpO2: 96% HT: 63 in HT: 160 cm WT: 160.055 lb WT: 72.6 kg BMI: 28.36 General: Well developed, well nourished, in no acute distress Head: Normocephalic/atraumatic Eyes: Pupils equal, round, and reactive to [...] Grossly normal Skin: No petechiae, suspicious lesions, Mental Status: Alert and oriented x3. Normal mood and affect Procedure Total time spent TODAY preparing the chart, [id number] interaction with the patient/family and time spent documenting, reviewing, and ordering above care was 40 mins. Patient was counseled on the above diagnosis and treatment, all questions were answered and patient agrees to adhere to the plan above. Risk and benefits of appropriate procedures and medications were reviewed as well with patient, who voiced understanding and agreement with stated management of care. Assessment/Plan 1. DM2 (diabetes mellitus, type 2) (E11.9: Type 2 diabetes mellitus without complications) POC A1c not due today. Stable on last check. (more content not included)... [facility] Comment on above: Result Comment: Elec tronically Signed By: Marcelo Call DO.deng\Date and Time Signed: 12/07/24 11:09 EDT CNPNon 12-06-2024 CNPN Telephone (AVPANE) FARTUN SCHNEIDER ([id number]) 1955 F Date Time Provider Department 12/06/24 JENNA CORDOVA AVPANE During your visit today, we recorded the following information about you: Heike Demarco MA 12/06/2024 8:37 AM Signed Patient was scheduled for in person [facility] appt 12/06/2024 at 8:20am. Patient did not check in for visit. Checked our waiting room and called for patient, but the patient was not present in the waiting room. I called the patient at 8:28am to see if they were coming to this appt. Called cell phone number listed in patient's chart. [phone] I did provide our [facility] forest botany instructor phone number to assist in rescheduling this apt. ([phone]). This message routed to [facility] schedulers to contact patient to reschedule [facility] appt. Heike Demarco MA Allergies As of Date: 12/06/2024 Noted Allergy Reaction CELEBREX (CELECOXIB) 04/20/2013 16 - Unknown GOLD LOPEZ (CORN [id number]* 4 16 - Unknown NEOSPORIN (BENZALKONIUM CHLORIDE) 04/20/2013 16 - Unknown PENICILLIN G 04/20/2013 16 - Unknown Date Reviewed: 11/23/2024 Reviewed by: Radha Mills OCCA - Fully Assessed Reason for Visit: PreOp Call [[id number]] Prescriptions as of 12/06/2024 - diazePAM (VALIUM) 2 mg tablet Take 2 mg by mouth every 12 hours. - dicyclomine (BENTYL) 10 mg capsule Take 10 mg by mouth before meals and at bedtime. - ferrous sulfate 325 mg (65 mg iron) tablet Take 325 mg by mouth once daily. - gabapentin (NEURONTIN) 300 mg capsule Take 300 mg by mouth once daily. - levothyroxine (SYNTHROID) 112 mcg tablet Take 112 mcg by mouth once daily. - nystatin (MYCOSTATIN) powder Apply 1 application to affected area two times a day. - omeprazole (PRILOSEC) 20 mg capsule Take 20 mg by mouth once daily. - ondansetron orally disintegrating (ZOFRAN ODT) 4 mg disintegrating tablet Take 4 mg by mouth every 8 hours as needed. - oxyCODONE-acetaminophen (PERCOCET) 5-325 mg tablet Take 1 tablet by mouth every 6 hours as needed. - potassium chloride 20 mEq TbER - TRULICITY 0.75 mg/0.5 mL pen injector Inject 0.75 mg subcutaneously one time a week. - atorvastatin (LIPITOR) 40 mg tablet Take 40 mg by mouth once daily. - insulin degludec (TRESIBA FLEXTOUCH) 100 unit/mL (3 mL) injection pen Inject 10 Units subcutaneously every morning. - buPROPion (WELLBUTRIN) 75 mg tablet Take 75 mg by mouth two times a day. - PARoxetine (PAXIL) 40 mg tablet Take 40 mg by mouth once daily. - TRAZODONE 100 mg tablet daily at bedtime. - TRAMADOL 50 mg tablet every 4 hours as needed. - LISINOPRIL 10 mg tablet once daily. - esomeprazole 40 mg capsule Take 40 mg by mouth once daily. - CITALOPRAM HYDROBROMIDE (CELEXA ORAL) Take by mouth once daily. - insulin 75/25 lispro protamine/lispro units/mL (HUMALOG MIX 75-25) 100 units/mL susp Inject subcutaneously twice daily with meals. Problem List As Of Date 12/06/2024 Noted Resolved Diabetes [E11.9] Stress [F43.9] 04/20/2013 Anxiety and depression [F41.9, F32.A] 04/20/2013 Arthritis of both knees [M17.0] 04/20/2013 Back pain [M54.9] 04/20/2013 Bipolar disorder (HCC) [F31.9] 11/26/2024 Chronic GERD [K21.9] 11/26/2024 Current smoker [F17.200] 11/26/2024 HTN (hypertension) [I10] 11/26/2024 Hyperlipidemia [E78.5] 11/26/2024 Hypothyroidism [E03.9] 11/26/2024 Iron deficiency anemia [D50.9] 11/26/2024 Encounter Status:Closed by HEIKE DEMARCO on 12/06/24 [facility] 11-25-19 [facility] Case Information Case Priority: None Programs: Transition Care Management Behavioral Health CCM Chronic Care/Condition Management Referral Source: System Identified Referral Reason: System identified Case Type: Transition Care Management Risk Score: 3.01 Case Status: Enrolled (October 28, 2024) Date Assigned: October 28, 2024 Assigned By: Aliyah Christian RN Date Enrolled: October 28, 2024 Assigned Primary Personnel: Aliyah Christian RN Assigned Secondary Personnel: -- Case Physician: Marcelo Call DO Problems Ongoing At risk for falls Bipolar disorder Chronic GERD Chronic pain Chronic prescription opiate use Closed subcapital fracture of right femur with routine healing, subsequent encounter Diabetes mellitus with polyneuropathy DM2 (diabetes mellitus, type 2) Dysphagia ESBL E. 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 Lower back pain Obesity Overactive bladder Personal history of colonic polyps Smoker Type 2 diabetes mellitus with hyperlipidemia Historical Arthritis Bridgett esophagitis CMC arthritis, thumb, degenerative Diverticulitis Fibrocystic breast changes Herpes zoster lesion Irritable bowel syndrome Kidney Stones UTI (urinary tract infection) Procedure/Surgical History Colonoscopy (10/26/2024), EGD - esophagogastroduodenoscopy (10/26/2024), Colonoscopy (09/28/2024), Endoscopy (09/28/2024), Aspiration of hip joint (04/11/2023), Aspiration of hip joint (02/13/2023), Repair of fracture of hip by nailing using fluoroscopic guidance (12/20/2022), History of hemiarthroplasty of right hip (11/25/2022), Esophagogastroduodenoscopy (05/09/2022), Arthroscopy of shoulder (08/16/2020), Excision of mass of neck (03/11/2019), Arthroplasty of finger (03/10/2018), percutaneous pinning left hip (10/03/2014), left total knee replacement with hardware removal (12/07/2013), right total knee arthroplasty (06/08/2013), Right knee (12/14/2012), BASILAR ARTHROPLASTY OF THUMB, Cyst - diagnostic aspiration, ESWL of kidney, gallbladder removed, jaw surgery, left knee ORIF, RENY BSO - Total abdominal hysterectomy and bilateral salpingo-oophorectomy, 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. Home Medications acetaminophen 325 mg Tab, 325 mg= 1 tab(s), Oral, TID, PRN, 1 refills acetaminophen-oxycodone 325 mg-5 mg Tab, 1 tab(s), Oral, TID, PRN ascorbic acid 500 mg Tab, 500 mg= 1 tab(s), Oral, BID, 4 refills Assure Prism Multi Blood Glucose Monitoring System, See Instructions, 2 refills atorvastatin 40 mg Tab, 40 mg= 1 tab(s), Oral, Daily, 4 refills Bentyl 10 mg Cap, 10 mg= 1 cap(s), Oral, QID, 1 refills bisacodyl 5 mg Oral EC Tab, 10 mg= 2 tab(s), Oral, Once, PRN BuPROPion (Eqv-Wellbutrin SR) 150 mg/12 hours oral tablet, extended release, 150 mg= 1 tab(s), Oral, BID, 4 refills carvedilol 12.5 mg Tab, 12.5 mg= 1 tab(s), Oral, BID, 4 refills diazepam 2 mg Tab, 2 mg= 1 tab(s), Oral, TID dulaglutide 0.75 mg/0.5 mL subcutaneous solution, 0.75 mg, SubCutaneous, qWeek, 11 refills ferrous sulfate 325 mg Tab, 325 mg= 1 tab(s), Oral, BID, 11 refills gabapentin 300 mg Cap, 300 mg= 1 cap(s), Oral, TID, 1 refills gabapentin 600 mg Tab, 600 mg= 1 tab(s), Oral, TID, 2 refills insulin aspart 100 units/mL injectable solution, See Instructions levothyroxine 112 mcg (0.112 mg) Tab, 112 mcg= 1 tab(s), Oral, Daily, 11 refills lisinopril 10 mg Tab, 10 mg= 1 tab(s), Oral, Daily, 4 refills Miralax 3350 17 gram packet, 17 gm, Oral, Daily nystatin Top 100,000 units/g Pwdr, 1 rhonda, Topical, BID, 2 refills omeprazole 20 mg Cap-DR, 20 mg= 1 cap(s), Oral, Daily, 4 refills ondansetron 4 mg Tab, 4 mg= 1 tab(s), Oral, q4hr, PRN, 3 refills oxybutynin 5 mg ER Tab, 5 mg= 1 tab(s), Oral, Daily, 4 refills Paxil 30 mg Tab, 60 mg= 2 tab(s), Oral, Daily potassium chloride 20 mEq ER Tab, 40 mEq= 2 tab(s), Oral, Daily, 4 refills reader, See Instructions sensors, See Instructions, 4 refills traZODONE 100 mg Tab, 100 mg= 1 tab(s), Oral, Once a day (at bedtime), 2 refills Tresiba 100 units/mL subcutaneous solution, 10 unit(s), SubCutaneous, Daily Allergies Adhesive Bandage (Rash) Celebrex (Rash) Neosporin (Rash) Noxema Triple Clean (Rash) amoxicillin (Anaphylaxis) goldbond cream (Rash) penicillin (Anaphylaxis) sulfamethoxazole (unknown) Social History Alcohol - Denies Alcohol Use, 01/07/2010 Employment/School Unemployed, Disability, 12/23/2018 Home/Environment Lives with Alone. Living situation: Home/Independent., 12/23/2018 Substance Abuse - Denies Substance Abuse, 01/07/2010 Tobacco - Denies Tobacco Use, 01/07/2010 Never (less than 100 in lifetime) Tobacco Use:. Never Smokeless Tobacco Use:. Household tobacco concerns: No., 11/05/2024 Family History Patient was adopted Depression: Sister. Diabetes mellitus type 1: Sister. Ulcerative colitis: Sister. Screenings and Assessmen (more content not included)... [facility] FARTUN SCHNEIDER ([id number]) 1955 F Date Time Provider Department 11/23/24 1:20 PM JENNA CORDOVA During your visit today, we recorded the following information about you: Pulse Blood pressure Weight Height 82/minute 148/63 72.1 kg 1.626 m Jenna Cordova MD 11/23/2024 2:42 PM Signed [facility] November 23, 2024 Fartun Schneider 69 year old This consult was requested by Dr. Duckworth and my final recommendations will be communicated to the requesting health care provider by way of the shared medical record for internal providers or letter via the [employer] for external providers. 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 Patient/authorized fuels sales representative agreed to proceed Chief Complaint: rectal polyp History of Present Illness: Fartun Schneider is a 69-year-old woman with HTN, HLD, DM, bipolar disorder, fibromyalgia, CKD, NAM, hypothyroidism, and chronic pain, presenting for evaluation of a high-grade intraepithelial lesion in the anorectal region. She is accompanied by her sister. She was recently hospitalized for abdominal pain, nausea, and bloating. During her hospitalization, she underwent EGD and colonoscopy. 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 She denies anal pain and fecal incontinence. She reports a burning pain radiating to her right flank, but understands this is unrelated to the rectal lesion. She has never had a cervical pap smear, has never been tested for HIV, and denies any history of receptive anal intercourse. She is not on any anticoagulants. She uses a walker for ambulation and has a history of hip fracture and surgery. She resides in an assisted living facility and is on baseline Percocet for chronic pain. PAST MEDICAL HISTORY Diagnosis Date Diabetes (HCC) PAST SURGICAL HISTORY Procedure Laterality Date PAST SURGICAL HISTORY OF right knee scrapping PAST SURGICAL HISTORY OF left thumb arthritis surgery PAST SURGICAL HISTORY OF Fatty tumor removed left shoulder Current Outpatient Medications Medication Sig Dispense Refill diazePAM (VALIUM) 2 mg tablet Take 2 mg by mouth every 12 hours. dicyclomine (BENTYL) 10 mg capsule Take 10 mg by mouth before meals and at bedtime. ferrous sulfate 325 mg (65 mg iron) tablet Take 325 mg by mouth once daily. gabapentin (NEURONTIN) 300 mg capsule Take 300 mg by mouth once daily. nystatin (MYCOSTATIN) powder Apply 1 application to affected area two times a day. omeprazole (PRILOSEC) 20 mg capsule Take 20 mg by mouth once daily. ondansetron orally disintegrating (ZOFRAN ODT) 4 mg disintegrating tablet Take 4 mg by mouth every 8 hours as needed. oxyCODONE-acetaminophen (PERCOCET) 5-325 mg tablet Take 1 tablet by mouth every 6 hours as needed. potassium chloride 20 mEq TbER TRULICITY 0.75 mg/0.5 mL pen injector Inject 0.75 mg subcutaneously one time a week. atorvastatin (LIPITOR) 40 mg tablet Take 40 mg by mouth once daily. insulin degludec (TRESIBA FLEXTOUCH) 100 unit/mL (3 mL) injection pen Inject 10 Units subcutaneously every morning. buPROPion (WELLBUTRIN) 75 mg tablet Take 75 mg by mouth two times a day. PARoxetine (PAXIL) 40 mg tablet Take 40 mg by mouth once daily. TRAZODONE 100 mg tablet daily at bedtime. LISINOPRIL 10 mg tablet once daily. levothyroxine (SYNTHROID) 112 mcg tablet Take 112 mcg by mouth once daily. TRAMADOL 50 mg tablet every 4 hours as needed. (Patient not taking: Reported on 11/23/2024) esomeprazole 40 mg capsule Take 40 mg by mouth once daily. (Patient not taking: Reported on 11/23/2024) CITALOPRAM HYDROBROMIDE (CELEXA ORAL) Take by mouth once daily. (Patient not taking: Reported on 11/23/2024) insulin 75/25 lispro protamine/lispro units/mL (HUMALOG MIX 75-25) 100 units/mL susp Inject subcutaneously twice daily with meals. (Patient not taking: Reported on 11/23/2024) No current facility-administered medications for this visit. ALLERGIES Allergen Reactions Celebrex [Celecoxib] Unknown Gold Lopez [[place] Sta* Unknown Neosporin [Benzalko* Unknown Penicillin G Unknown FAMILY HISTORY Problem Relation Age of Onset other (unknown [Other]) Unknown SOCIAL HISTORY[1] Physical Exam: BP 148/63 Pulse 82 Ht 162.6 cm (5' 4 ) Wt 72.1 kg (158 lb 15.2 oz) SpO2 96% BMI 27.28 kg/m? General Appearance: Walker Anorectal: External exam reveals no external lesion. Digital rectal exam reveals a soft/firm 3cm mass starting in anal canal and extending ~1-1.5cm into distal rectum, located in left posterior, slightly lateral location. No pain. Anoscopy deferred Mental Retardation Nurse present: Yes The (more content not included)... Normal [facility] 11-18-19 [facility] Case Information Case Priority: None Programs: Transition Care Management Behavioral Health CCM Chronic Care/Condition Management Referral Source: System Identified Referral Reason: System identified Case Type: Transition Care Management Risk Score: 3.01 Case Status: Enrolled (October 28, 2024) Date Assigned: October 28, 2024 Assigned By: Aliyah Christian RN Date Enrolled: October 28, 2024 Assigned Primary Personnel: Aliyah Christian RN Assigned Secondary Personnel: -- Case Physician: Marcelo Call DO Problems Ongoing At risk for falls Bipolar disorder Chronic GERD Chronic pain Chronic prescription opiate use Closed subcapital fracture of right femur with routine healing, subsequent encounter Diabetes mellitus with polyneuropathy DM2 (diabetes mellitus, type 2) Dysphagia ESBL E. 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 Lower back pain Obesity Overactive bladder Personal history of colonic polyps Smoker Type 2 diabetes mellitus with hyperlipidemia Historical Arthritis Bridgett esophagitis CMC arthritis, thumb, degenerative Diverticulitis Fibrocystic breast changes Herpes zoster lesion Irritable bowel syndrome Kidney Stones UTI (urinary tract infection) Procedure/Surgical History Colonoscopy (10/26/2024), EGD - esophagogastroduodenoscopy (10/26/2024), Colonoscopy (09/28/2024), Endoscopy (09/28/2024), Aspiration of hip joint (04/11/2023), Aspiration of hip joint (02/13/2023), Repair of fracture of hip by nailing using fluoroscopic guidance (12/20/2022), History of hemiarthroplasty of right hip (11/25/2022), Esophagogastroduodenoscopy (05/09/2022), Arthroscopy of shoulder (08/16/2020), Excision of mass of neck (03/11/2019), Arthroplasty of finger (03/10/2018), percutaneous pinning left hip (10/03/2014), left total knee replacement with hardware removal (12/07/2013), right total knee arthroplasty (06/08/2013), Right knee (12/14/2012), BASILAR ARTHROPLASTY OF THUMB, Cyst - diagnostic aspiration, ESWL of kidney, gallbladder removed, jaw surgery, left knee ORIF, RENY BSO - Total abdominal hysterectomy and bilateral salpingo-oophorectomy, 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. Home Medications acetaminophen 325 mg Tab, 325 mg= 1 tab(s), Oral, TID, PRN, 1 refills acetaminophen-oxycodone 325 mg-5 mg Tab, 1 tab(s), Oral, TID, PRN ascorbic acid 500 mg Tab, 500 mg= 1 tab(s), Oral, BID, 4 refills Assure Prism Multi Blood Glucose Monitoring System, See Instructions, 2 refills atorvastatin 40 mg Tab, 40 mg= 1 tab(s), Oral, Daily, 4 refills Bentyl 10 mg Cap, 10 mg= 1 cap(s), Oral, QID, 1 refills bisacodyl 5 mg Oral EC Tab, 10 mg= 2 tab(s), Oral, Once, PRN BuPROPion (Eqv-Wellbutrin SR) 150 mg/12 hours oral tablet, extended release, 150 mg= 1 tab(s), Oral, BID, 4 refills carvedilol 12.5 mg Tab, 12.5 mg= 1 tab(s), Oral, BID, 4 refills diazepam 2 mg Tab, 2 mg= 1 tab(s), Oral, TID dulaglutide 0.75 mg/0.5 mL subcutaneous solution, 0.75 mg, SubCutaneous, qWeek, 11 refills ferrous sulfate 325 mg Tab, 325 mg= 1 tab(s), Oral, BID, 11 refills fluconazole 200 mg Tab, 200 mg= 1 tab(s), Oral, Daily gabapentin 300 mg Cap, 300 mg= 1 cap(s), Oral, TID, 1 refills gabapentin 600 mg Tab, 600 mg= 1 tab(s), Oral, TID, 2 refills insulin aspart 100 units/mL injectable solution, See Instructions levothyroxine 112 mcg (0.112 mg) Tab, 112 mcg= 1 tab(s), Oral, Daily, 11 refills lisinopril 10 mg Tab, 10 mg= 1 tab(s), Oral, Daily, 4 refills Miralax 3350 17 gram packet, 17 gm, Oral, Daily nystatin Top 100,000 units/g Pwdr, 1 rhonda, Topical, BID, 2 refills omeprazole 20 mg Cap-DR, 20 mg= 1 cap(s), Oral, Daily, 4 refills ondansetron 4 mg Tab, 4 mg= 1 tab(s), Oral, q4hr, PRN, 3 refills oxybutynin 5 mg ER Tab, 5 mg= 1 tab(s), Oral, Daily, 4 refills Paxil 30 mg Tab, 60 mg= 2 tab(s), Oral, Daily potassium chloride 20 mEq ER Tab, 40 mEq= 2 tab(s), Oral, Daily, 4 refills reader, See Instructions sensors, See Instructions, 4 refills traZODONE 100 mg Tab, 100 mg= 1 tab(s), Oral, Once a day (at bedtime), 2 refills Tresiba 100 units/mL subcutaneous solution, 10 unit(s), SubCutaneous, Daily Allergies Adhesive Bandage (Rash) Celebrex (Rash) Neosporin (Rash) Noxema Triple Clean (Rash) amoxicillin (Anaphylaxis) goldbond cream (Rash) penicillin (Anaphylaxis) sulfamethoxazole (unknown) Social History Alcohol - Denies Alcohol Use, 01/07/2010 Employment/School Unemployed, Disability, 12/23/2018 Home/Environment Lives with Alone. Living situation: Home/Independent., 12/23/2018 Substance Abuse - Denies Substance Abuse, 01/07/2010 Tobacco - Denies Tobacco Use, 01/07/2010 Never (less than 100 in lifetime) Tobacco Use:. Never Smokeless Tobacco Use:. Household tobacco concerns: No., 11/05/2024 Family History Patient was adopted Depression: Sister. Diabetes mellitus type 1: Sister. (more content not included)... Normal [facility] 11-11-19 [facility] Case Information Case Priority: None Programs: Transition Care Management Behavioral Health CCM Chronic Care/Condition Management Referral Source: System Identified Referral Reason: System identified Case Type: Transition Care Management Risk Score: 3.01 Case Status: Enrolled (October 28, 2024) Date Assigned: October 28, 2024 Assigned By: Aliyah Christian RN Date Enrolled: October 28, 2024 Assigned Primary Personnel: Aliyah Christian RN Assigned Secondary Personnel: -- Case Physician: Marcelo Call DO Problems Ongoing At risk for falls Bipolar disorder Chronic GERD Chronic pain Chronic prescription opiate use Closed subcapital fracture of right femur with routine healing, subsequent encounter Diabetes mellitus with polyneuropathy DM2 (diabetes mellitus, type 2) Dysphagia ESBL E. 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 Lower back pain Obesity Overactive bladder Personal history of colonic polyps Smoker Type 2 diabetes mellitus with hyperlipidemia Historical Arthritis Bridgett esophagitis CMC arthritis, thumb, degenerative Diverticulitis Fibrocystic breast changes Herpes zoster lesion Irritable bowel syndrome Kidney Stones UTI (urinary tract infection) Procedure/Surgical History Colonoscopy (10/26/2024), EGD - esophagogastroduodenoscopy (10/26/2024), Colonoscopy (09/28/2024), Endoscopy (09/28/2024), Aspiration of hip joint (04/11/2023), Aspiration of hip joint (02/13/2023), Repair of fracture of hip by nailing using fluoroscopic guidance (12/20/2022), History of hemiarthroplasty of right hip (11/25/2022), Esophagogastroduodenoscopy (05/09/2022), Arthroscopy of shoulder (08/16/2020), Excision of mass of neck (03/11/2019), Arthroplasty of finger (03/10/2018), percutaneous pinning left hip (10/03/2014), left total knee replacement with hardware removal (12/07/2013), right total knee arthroplasty (06/08/2013), Right knee (12/14/2012), BASILAR ARTHROPLASTY OF THUMB, Cyst - diagnostic aspiration, ESWL of kidney, gallbladder removed, jaw surgery, left knee ORIF, RENY BSO - Total abdominal hysterectomy and bilateral salpingo-oophorectomy, 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. Home Medications acetaminophen 325 mg Tab, 325 mg= 1 tab(s), Oral, TID, PRN, 1 refills acetaminophen-oxycodone 325 mg-5 mg Tab, 1 tab(s), Oral, TID, PRN ascorbic acid 500 mg Tab, 500 mg= 1 tab(s), Oral, BID, 4 refills Assure Prism Multi Blood Glucose Monitoring System, See Instructions, 2 refills atorvastatin 40 mg Tab, 40 mg= 1 tab(s), Oral, Daily, 4 refills Bentyl 10 mg Cap, 10 mg= 1 cap(s), Oral, QID, 1 refills bisacodyl 5 mg Oral EC Tab, 10 mg= 2 tab(s), Oral, Once, PRN BuPROPion (Eqv-Wellbutrin SR) 150 mg/12 hours oral tablet, extended release, 150 mg= 1 tab(s), Oral, BID, 4 refills carvedilol 12.5 mg Tab, 12.5 mg= 1 tab(s), Oral, BID, 4 refills diazepam 2 mg Tab, 2 mg= 1 tab(s), Oral, TID dulaglutide 0.75 mg/0.5 mL subcutaneous solution, 0.75 mg, SubCutaneous, qWeek, 11 refills ferrous sulfate 325 mg Tab, 325 mg= 1 tab(s), Oral, BID, 11 refills fluconazole 200 mg Tab, 200 mg= 1 tab(s), Oral, Daily gabapentin 300 mg Cap, 300 mg= 1 cap(s), Oral, TID, 1 refills gabapentin 600 mg Tab, 600 mg= 1 tab(s), Oral, TID, 2 refills insulin aspart 100 units/mL injectable solution, See Instructions levothyroxine 112 mcg (0.112 mg) Tab, 112 mcg= 1 tab(s), Oral, Daily, 11 refills lisinopril 10 mg Tab, 10 mg= 1 tab(s), Oral, Daily, 4 refills Miralax 3350 17 gram packet, 17 gm, Oral, Daily nystatin Top 100,000 units/g Pwdr, 1 rhonda, Topical, BID, 2 refills omeprazole 20 mg Cap-DR, 20 mg= 1 cap(s), Oral, Daily, 4 refills ondansetron 4 mg Tab, 4 mg= 1 tab(s), Oral, q4hr, PRN, 3 refills oxybutynin 5 mg ER Tab, 5 mg= 1 tab(s), Oral, Daily, 4 refills Paxil 30 mg Tab, 60 mg= 2 tab(s), Oral, Daily potassium chloride 20 mEq ER Tab, 40 mEq= 2 tab(s), Oral, Daily, 4 refills reader, See Instructions sensors, See Instructions, 4 refills traZODONE 100 mg Tab, 100 mg= 1 tab(s), Oral, Once a day (at bedtime), 2 refills Tresiba 100 units/mL subcutaneous solution, 10 unit(s), SubCutaneous, Daily Allergies Adhesive Bandage (Rash) Celebrex (Rash) Neosporin (Rash) Noxema Triple Clean (Rash) amoxicillin (Anaphylaxis) goldbond cream (Rash) penicillin (Anaphylaxis) sulfamethoxazole (unknown) Social History Alcohol - Denies Alcohol Use, 01/07/2010 Employment/School Unemployed, Disability, 12/23/2018 Home/Environment Lives with Alone. Living situation: Home/Independent., 12/23/2018 Substance Abuse - Denies Substance Abuse, 01/07/2010 Tobacco - Denies Tobacco Use, 01/07/2010 Never (less than 100 in lifetime) Tobacco Use:. Never Smokeless Tobacco Use:. Household tobacco concerns: No., 11/05/2024 Family History Patient was adopted Depression: Sister. Diabetes mellitus type 1: Sister. (more content not included)... [facility] Ambulatory Visit Summaryon 0 11-05-2024 Ambulatory Visit Summary Ambulatory Visit Summary ZACH FARTUN A :1955 Visit Date:11/05/2024 Ambulatory Visit Instructions Your Diagnosis Proctitis Rectal polyp Rectal bleeding Abdominal pain ESBL E. coli carrier Obesity Smoker BMI 27.0-27.9,adult Never used tobacco Your Care Team Attending Physician - Marcelo Call DO Primary Care Physician - Marcelo Call DO This Is Your Medications List Misc Prescription (Assure Prism Multi Blood Glucose Monitoring System) Misc Prescription (reader) Misc Prescription (sensors) acetaminophen (acetaminophen 325 mg Tab) acetaminophen-oxycodone (acetaminophen-oxycodone 325 mg-5 mg Tab) ascorbic acid (ascorbic acid 500 mg Tab) atorvastatin (atorvastatin 40 mg Tab) bisacodyl (bisacodyl 5 mg Oral EC Tab) buPROPion (BuPROPion (Eqv-Wellbutrin SR) 150 mg/12 hours oral tablet, extended release) carvedilol (carvedilol 12.5 mg Tab) diazepam (diazepam 2 mg Tab) dicyclomine (Bentyl 10 mg Cap) dulaglutide (dulaglutide 0.75 mg/0.5 mL subcutaneous solution) ferrous sulfate (ferrous sulfate 325 mg Tab) fluconazole (fluconazole 200 mg Tab) gabapentin (gabapentin 300 mg Cap) gabapentin (gabapentin 600 mg Tab) insulin aspart (insulin aspart 100 units/mL injectable solution) insulin degludec (Tresiba 100 units/mL subcutaneous solution) levothyroxine (levothyroxine 112 mcg (0.112 mg) Tab) lisinopril (lisinopril 10 mg Tab) nystatin topical (nystatin Top 100,000 units/g Pwdr) omeprazole (omeprazole 20 mg Cap-DR) ondansetron (ondansetron 4 mg Tab) oxybutynin (oxybutynin 5 mg ER Tab) paroxetine (Paxil 30 mg Tab) polyethylene glycol 3350 (Miralax 3350 17 gram packet) potassium chloride (potassium chloride 20 mEq ER Tab) trazodone (traZODONE 100 mg Tab) Procedures Performed Colonoscopy (10/26/2024), EGD - esophagogastroduodenoscopy (10/26/2024), Colonoscopy (09/28/2024), Endoscopy (09/28/2024), Aspiration of hip joint (04/11/2023), Aspiration of hip joint (02/13/2023), Repair of fracture of hip by nailing using fluoroscopic guidance (12/20/2022), History of hemiarthroplasty of right hip (11/25/2022), Esophagogastroduodenoscopy (05/09/2022), Arthroscopy of shoulder (08/16/2020), Excision of mass of neck (03/11/2019), Arthroplasty of finger (03/10/2018), percutaneous pinning left hip (10/03/2014), left total knee replacement with hardware removal (12/07/2013), right total knee arthroplasty (06/08/2013), Right knee (12/14/2012), BASILAR ARTHROPLASTY OF THUMB, Cyst - diagnostic aspiration, ESWL of kidney, gallbladder removed, jaw surgery, left knee ORIF, RENY BSO - Total abdominal hysterectomy and bilateral salpingo-oophorectomy, 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. Discharge Vitals Heart Rate (Peripheral) 66 Respiratory Rate 18 Blood Pressure 130/70 Height 64 in Height 162 cm Weight 72.5 kg Weight 159.835 lb BMI 27.63 What to do next Scheduled Follow-Up Appointments Friday 9:30 AM EDT With: Where: [address] [address]- Friday 10:20 AM EDT With: Marcelo Call DO Where: [address] [address]- You Need to Schedule the Following Appointments Follow Up with Marcelo Call DO, FAM When: Comments: As scheduled Where: [address] [address]- Medications What How Much When Why Instructions Unchanged acetaminophen (acetaminophen 325 mg Tab) 1 Tablets By Mouth 3 times a day as needed for for fever Take 1 tablet by mouth three times a day as needed Unchanged acetaminophen-oxycodone (acetaminophen-oxycodone 325 mg-5 mg Tab) 1 Tablets By Mouth 3 times a day as needed for for pain Chronic pain May take between 8am and 8pm 30 day supply Unchanged ascorbic acid (ascorbic acid 500 mg [...] By Mouth 2 times a day Unchanged diazepam (diazepam 2 mg Tab) 1 Tablets By Mouth 3 times a day Depression with anxiety For 30 day supply Unchanged dicyclomine (Bentyl 10 mg Cap) 1 Capsules By Mouth 4 times a day Unchanged dulaglutide (dulaglutide 0.75 mg/ 0.5 mL subcutaneous solution) 0.75 Milligram Subcutaneous Every week Unchanged ferrous sulfate (ferrous sulfate 325 mg Tab) 1 Tablets By Mouth 2 times a day Unchanged fluconazole (fluconazole 200 mg Tab) 1 Tablets By Mouth Every day Duration: 14 Days Unchanged gabapentin (gabapentin 300 mg Cap) 1 Capsules By Mouth 3 times a day Diabetes mellitus with polyneuropathy Chronic GERD Chronic pain Depression with anxiety HTN (hype (more content not included)... [facility] Family Medicine Office/Clini c Noteon 11-05-2024 Family Medicine Office/Clinic Note Family Medicine Office/Clinic Note Chief Complaint Hospital F/U HPI Staff Patient here for Hospitalization f/u Hospitalization: Hospital: [facility] [place] Admission date: 10/22 Discharge date: 10/27 Symptoms the patient presented with: N/V/D and abdominal pain - CT of abdomen/pelvis showed diffuse colitis involving the left colon showing small amounts of hemorrhage from the rectal fannie near the anus . Patient admitted to the hospital for acute GI bleed. GI consulted. 10/26 patient had colonoscopy, GI recommended patient [facility] with f/u in 1 to 2 weeks. Positive for UTI, treated with IV Ceftriaxone. 11/03 GI called Kamlesh Boyd and advised Fluconazole prescribed for Bridgett. Appointment with [facility] scheduled ?? Current concerns: Patient states that GI Dr removed a polyp and sent it for biopsy but she never received the results of the biopsy and she is concerned and wishes to know what the results were . Patient states that the right leg is making it more and more difficult to get out of bed in the morning r/t spacer. PhQ9: 19 Med Ag: Completed today Dexa/Rex: per patient 2022 [place]: 10/17/16, repeat in 10 years AMW: Scheduled for 11/11/24 History of Present Illness Patient presents today for hospital followup. Hospital location: [facility] [place] Admission Date: 10/22/2024 Discharge Date: 10/27/2024 Reviewed Records: ER summary, history and physical, consultation notes, discharge summary, home call notes Summary: Patient presented with nausea, vomiting, abdominal pain, and rectal bleeding. She had hypotension, was treated with fluid resuscitation. CT showed colitis, she had acute blood loss anemia on her labs. She was made NPO and given IVF, admitted and had GI consult. She had a colonoscopy which showed internal hemorrhoids, moderate inflammation and a large polyp. UA was abnormal for ESBL E. Coli, but was not in range for treatment. She was treated with IV ceftriaxone inpatient, finished on discharge. She was able to advance her diet inpatient after colonoscopy, and had no further bleeding while inpatient. Vitals and exam are stable. GI referral was set up after discharge for polyp removal in the rectum. She was instructed to avoid NSAID's. Today, patient states that she is still having some mild tenderness and bloating. She would like recommendations at this time regarding her referral, and what the results of the biopsy are. She is tired today otherwise. Review of Systems PHQ Score Initial Depression Screen Score: 6 SCORE Detailed Depression Screen Score: 13 Total Depression Screen Score: 19 ROS - Provider Constitutional: no fever, no chills Skin: yes rash, no lesions ENMT: no ear pain, [...] Physical Exam Vitals & Measurements HR: 66(Peripheral) RR: 18 BP: 130/70 SpO2: 95% HT: 64 in HT: 162 cm WT: 159.835 lb WT: 72.5 kg BMI: 27.63 General: Well developed, well nourished, in no acute distress Head: Normocephalic/atraumatic Eyes: Pupils equal, round, and reactive to [...] Grossly normal Skin: No petechiae, suspicious lesions, Mental Status: Alert and oriented x3. Normal mood and affect Assessment/Plan 1. Proctitis (K62.89: Other specified diseases of anus and rectum) Resolved today, monitor for recurrence. Residual symptoms advised patient will likely fade in the next 2-3 weeks. Follow with GI for recommendations at this time. Recheck in 4 weeks for progress and discussion of condition. Reviewed pathology today as well. Ordered: 1125F Pain severity quantified; pain present Body Mass Index (BMI) documented 3008F Functional status assessed 1170F Medication list documented in medical record 1159F Patient screen for fall risk: no falls in last year or 1 fall with no injury in last year 1101F 2. Rectal polyp (K62.1: Rectal polyp) Follow up with GI provider per patient discharge summary for polyp removal. Ordered: 1125F Pain severity quantified; pain present Body Mass Index (BMI) documented 3008F Functional status assessed 1170F Medication list documented in medical rec (more content not included)... [facility] Comment on above: Result Comment: Elec tronically Signed By: Marcelo Call DO\.br\Date and Time Signed: 11/05/24 13:36 EDT Coding Queryon 11-03-2024 Coding Query Coding Query From: Lorelei Weir RN To: Anu MANZANO; Sent: 10/25/2024 12:47:06 EDT ! Subject: Coding Query Due Date/Time: 10/26/2024 12:47:00 EDT Caller Name: FARTUN SCHNEIDER; Caller Number: Lakeshia , M Documentation in the medical record indicates this patient has been admitted with or diagnosed as having: UTI The following is also documented in the medical record: 10/25 Progress note-3. Abnormal urinalysis UA abnormal. Final urine culture positive for Ecoli ESBL 4000 cfus Discontinue IV Ceftriaxone --does not tx Will hold off on antibiotics at this time as pt asymptomatic and voiding w/o any issues. Patient positive for acute UTI awaiting urine culture results Based on your medical judgment, can you please clarify if the diagnosis is: [___]Ruled in [___]Ruled out [___]Other: In responding to this request, please exercise your independent professional judgement. The fact that a question is asked does not imply that any particular answer is desired or expected. Thank you![email or web address] [id number] From: Anu MANZANO To: Close RN, Lorelei Arnold; Sent: 11/03/2024 20:12:39 EDT Subject: RE: Coding Query Caller Name: FARTUN SCHNEIDER; Caller Number: Lakeshia , M pt did have a uti but was not treated as pt did not have enough bacteria or symptoms to treat [facility] O & P EXAM, ROUTINE, REFLEXo n 11-01-2024 Result 1 Comment Invalid Interpretation Code [facility] Comment on above: Result Comment: No o va, cysts, or parasites seen. One negative specimen does not rule out the possibility of a parasitic infection. Performed at: [address] [id number] PhD Yelitza Hebert Performed By: #### [id number] #### [facility] [address] [place] [id number] O & P Exam, Routineon 2024 Ova/Para Exam Rt Final report Invalid Interpretation Code [facility] Comment on above: Result Comment: Thes e results were obtained using wet preparation(s) and trichrome stained smear. This test does not include testing for Cryptosporidium parvum, Cyclospora, or Microsporidia. Performed at: [address] [id number] PhD Yelitza Hebert Performed By: #### [id number] #### [facility] [address] [place] [address] Surgical Pathology Reporton 11-01-2024 Surgical Pathology Report [address] [id number]- Surgical Pathology Report Collected Date/Time: 10/26/2024 08:38 EDT Pathologist: Stephenie Wu MD Received Date/Time: 10/26/2024 10:46 EDT Marga Duckworth MD, MD, Mohamad A. 07 Surgical Pathology Report - 11/01/2024 17:53 EDT - Auth (Verified) Final Diagnosis A: DUODENUM, BIOPSY: - Duodenal mucosa with pseudomelanosis duodeni B: STOMACH, BIOPSY: - Oxyntic and antral-type mucosa with focal mild reactive gastropathy - No intestinal metaplasia identified. - No H. pylori microorganisms identified with immunostain. C: ESOPHAGEAL EXUDATE, BIOPSY: - Esophageal squamous mucosa with reactive changes and fungal elements compatible with Bridgett esophagitis - No intraepithelial eosinophils identified. - No glandular epithelium present. - GMS special stain is positive for fungal organisms. D: LEFT COLON, BIOPSY: - Colonic mucosa with focal lymphoid aggregate, otherwise no significant pathologic changes E: LOWER RECTAL/ANAL MASS, BIOPSY: - At least high-grade squamous intraepithelial lesion (HSIL/AIN 3) Comment: Due to the superficial nature of the biopsy, an invasive component cannot be ruled out. 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 P53 immunostain demonstrates wild-type expression. (Electronic Signature) Myrlande. Bryce MD 11/01/2024 17:53 Clinical Information Diarrhea, abdominal pain Pre-Op Diagnosis: Diarrhea, abdominal pain Procedure: EGD, colonoscopy Post-Op Diagnosis: 1. Probable candidal esophagitis 2. Gastropathy 3. Hiatal hernia 4. Proctitis status post biopsies 5. Rectal polyp status post biopsies Specimen(s) Received A.Duodenal biopsy B.Gastric biopsy C.Esophageal exudate biopsy D.Left colon biopsy E.Lower rectal/anal mass biopsy Gross Description A: Received in formalin labeled with patient name, number, and duodenal biopsy are multiple fragments of ellsworth/pink tissue ranging from less than 0.1 cm up to 0.3 cm in greatest dimension. Specimen is entirely submitted in one cassette. Surgical Pathology Report Collected Date/Time: 10/26/2024 08:38 EDT Pathologist: Stephenie Wu MD Received Date/Time: 10/26/2024 10:46 EDT Mouchli MD, Marga Duckworth MD, Marga Moon Gross Description B: Received in formalin labeled with patient name, number, and gastric biopsy are four fragments of ellsworth/pink tissue ranging from 0.1 cm up to 0.3 cm in greatest dimension. Specimen is entirely submitted in one cassette. C: Received in formalin labeled with patient name, number, and esophageal exudate biopsy are multiple fragments of ellsworth/pink tissue ranging from less than 0.1 cm up to 0.2 cm in greatest dimension. Specimen is entirely submitted in one cassette. D: Received in formalin labeled with patient name, number, and left colon biopsy are multiple fragments of ellsworth/pink tissue ranging from less than 0.1 cm up to 0.4 cm in greatest dimension. Specimen is entirely submitted in one cassette. E: Received in formalin labeled with patient name, number, and lower rectal/anal mass biopsy are three fragments of ellsworth/pink tissue ranging from less than 0.1 cm up to 0.3 cm in greatest dimension. Specimen is entirely submitted in one cassette. (DC) DC:MCA Microscopic Description The use of one or more reagents in the above tests is regulated as an analyte specific reagent (ASR). The test or tests are ordered following initial H&E microscopic examination. The performance characteristics were determined by the [facility] of [facility]. They have not been cleared or approved by the US Food and Drug Administration. The FDA has determined that such clearance or approval is not necessary. These tests are used for clinical purposes. They should not be regarded as investigational or for research. Appropriate positive and negative controls are performed and are acceptable. This report was transcribed using voice recognition technology and might contain unintended computerized balance assembler errors. Microscopic examination performed unless gross only specified. Quality was accessed and acceptable. [facility] Comment on above: Performed By: #### [id number] #### [facility] [address] [place] [address] [facility] [place] [facility] [place] 10-29-19 [facility] Case Information Case Priority: None Programs: Transition Care Management Behavioral Health CCM Chronic Care/Condition Management Referral Source: System Identified Referral Reason: System identified Case Type: Transition Care Management Risk Score: 3.01 Case Status: Enrolled (October 28, 2024) Date Assigned: October 28, 2024 Assigned By: Aliyah Christian RN Date Enrolled: October 28, 2024 Assigned Primary Personnel: Aliyah Christian RN Assigned Secondary Personnel: -- Case Physician: Marcelo Call DO Problems Ongoing At risk for falls Bipolar disorder Chronic GERD Chronic pain Chronic prescription opiate use Closed subcapital fracture of right femur with routine healing, subsequent encounter Diabetes mellitus with polyneuropathy DM2 (diabetes mellitus, type 2) Dysphagia ESBL E. 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 Lower back pain Obesity Overactive bladder Personal history of colonic polyps Smoker Type 2 diabetes mellitus with hyperlipidemia Historical Arthritis Bridgett esophagitis CMC arthritis, thumb, degenerative Diverticulitis Fibrocystic breast changes Herpes zoster lesion Irritable bowel syndrome Kidney Stones UTI (urinary tract infection) Procedure/Surgical History Colonoscopy (10/26/2024), EGD - esophagogastroduodenoscopy (10/26/2024), Aspiration of hip joint (04/11/2023), Aspiration of hip joint (02/13/2023), Repair of fracture of hip by nailing using fluoroscopic guidance (12/20/2022), History of hemiarthroplasty of right hip (11/25/2022), Esophagogastroduodenoscopy (05/09/2022), Arthroscopy of shoulder (08/16/2020), Excision of mass of neck (03/11/2019), Arthroplasty of finger (03/10/2018), percutaneous pinning left hip (10/03/2014), left total knee replacement with hardware removal (12/07/2013), right total knee arthroplasty (06/08/2013), Right knee (12/14/2012), BASILAR ARTHROPLASTY OF THUMB, Cyst - diagnostic aspiration, ESWL of kidney, gallbladder removed, jaw surgery, left knee ORIF, RENY BSO - Total abdominal hysterectomy and bilateral salpingo-oophorectomy, 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. Home Medications acetaminophen 325 mg Tab, 325 mg= 1 tab(s), Oral, TID, PRN, 1 refills acetaminophen-oxycodone 325 mg-5 mg Tab, 1 tab(s), Oral, TID, PRN ascorbic acid 500 mg Tab, 500 mg= 1 tab(s), Oral, BID, 4 refills [employer] Blood Glucose Monitoring System, See Instructions, 2 refills atorvastatin 40 mg Tab, 40 mg= 1 tab(s), Oral, Daily, 4 refills Bentyl 10 mg Cap, 10 mg= 1 cap(s), Oral, QID, 1 refills bisacodyl 5 mg Oral EC Tab, 10 mg= 2 tab(s), Oral, Once, PRN BuPROPion (Eqv-Wellbutrin SR) 150 mg/12 hours oral tablet, extended release, 150 mg= 1 tab(s), Oral, BID, 4 refills carvedilol 12.5 mg Tab, 12.5 mg= 1 tab(s), Oral, BID, 4 refills diazepam 2 mg Tab, 2 mg= 1 tab(s), Oral, TID dulaglutide 0.75 mg/0.5 mL subcutaneous solution, 0.75 mg, SubCutaneous, qWeek, 11 refills ferrous sulfate 325 mg Tab, 325 mg= 1 tab(s), Oral, BID, 11 refills gabapentin 300 mg Cap, 300 mg= 1 cap(s), Oral, TID, 1 refills gabapentin 600 mg Tab, 600 mg= 1 tab(s), Oral, TID, 2 refills insulin aspart 100 units/mL injectable solution, See Instructions levothyroxine 112 mcg (0.112 mg) Tab, 112 mcg= 1 tab(s), Oral, Daily, 11 refills lisinopril 10 mg Tab, 10 mg= 1 tab(s), Oral, Daily, 4 refills Miralax 3350 17 gram packet, 17 gm, Oral, Daily nystatin Top 100,000 units/g Pwdr, 1 rhonda, Topical, BID, 2 refills omeprazole 20 mg Cap-DR, 20 mg= 1 cap(s), Oral, Daily, 4 refills ondansetron 4 mg Tab, 4 mg= 1 tab(s), Oral, q4hr, PRN, 3 refills oxybutynin 5 mg ER Tab, 5 mg= 1 tab(s), Oral, Daily, 4 refills Paxil 30 mg Tab, 60 mg= 2 tab(s), Oral, Daily potassium chloride 20 mEq ER Tab, 40 mEq= 2 tab(s), Oral, Daily, 4 refills reader, See Instructions sensors, See Instructions, 4 refills traZODONE 100 mg Tab, 100 mg= 1 tab(s), Oral, Once a day (at bedtime), 2 refills Tresiba 100 units/mL subcutaneous solution, 10 unit(s), SubCutaneous, Daily Allergies Adhesive Bandage (Rash) Celebrex (Rash) Neosporin (Rash) Noxema Triple Clean (Rash) amoxicillin (Anaphylaxis) goldbond cream (Rash) penicillin (Anaphylaxis) sulfamethoxazole (unknown) Social History Alcohol - Denies Alcohol Use, 01/07/2010 Employment/School Unemployed, Disability, 12/23/2018 Home/Environment Lives with Alone. Living situation: Home/Independent., 12/23/2018 Substance Abuse - Denies Substance Abuse, 01/07/2010 Tobacco - Denies Tobacco Use, 01/07/2010 Never (less than 100 in lifetime) Tobacco Use:. Never Smokeless Tobacco Use:. Household tobacco concerns: No., 09/21/2024 Family History Patient was adopted Depression: Sister. Diabetes mellitus type 1: Sister. Ulcerative colitis: Sister. Screenings and Assessments 10/28/24 10:23:00 Result Name Value (more content not included)... [facility] Capillary Glucose POCon 09-30 Glucose [Mass/Vol] 236 mg/dL High 55-99 [facility] Comment on above: Result Comment: Fausto rubi RN/ Performed By: #### [id number] ####[facility] [address] [place] [address] Glucose [Mass/Vol] 114 mg/dL High 55-99 [facility] Comment on above: Result Comment: Fausto rubi RN/ Performed By: #### [id number] #### [facility] [address] [place] [address] [facility] [place] 10-27-2024 WB Tube Collected Yes Invalid Interpretation Code [facility] Comment on above: Performed By: #### 1 [id number] #### [facility] [address] [place] [address] Inpatient Clinical Summaryon 10-27-2024 Inpatient Clinical Summary Inpatient Clinical Summary [address] [address] Clinical Summary Person Information: Name: FARTUN SCHNEIDER Age: 69 Years : 1955 Sex: Female PCP: Marcelo Call DO Marital Status: Single Race: White Ethnicity: Non- or Language: Luxembourger Visit Id: Visit Reason: Hypotension; Diarrhea; Abdominal pain; fall Speciality: Acuity: Enc Type: Inpatient Med Service: Medical Arrival: 10/22/2024 14:22:13 Discharge: Dispo Type: Admitted as IP to this Hosp Address: [address] [place] [address] [place] [phone] Provider Notes: Diagnosis: 1:GI bleed; 2:Acute colitis; 3:Abnormal urinalysis; 4:Acute hypotension; 5:Hyperlipidemia; 6:HTN (hypertension); 7:Hypothyroidism; 8:DM2 (diabetes mellitus, type 2); 10:Chronic prescription opiate use; 11:Bipolar disorder; 12:On deep vein thrombosis (DVT) prophylaxis; 13:Acute blood loss anemia Problems Active Chronic prescription opiate use DM2 (diabetes mellitus, type 2) 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) At risk for falls Overactive bladder Closed subcapital fracture of right femur with routine healing, subsequent encounter Iron deficiency anemia Diabetes mellitus with polyneuropathy Personal history of colonic polyps Dysphagia Lower back pain Smoker HTN (hypertension) Chronic pain Chronic GERD Hypothyroidism Obesity Smoking Status: Never Smoker Functional Status: Sensory Deficits: History of Falls: Mobility Assistance Prior to Admission: ADLs: Minimal assistance Current Level of Assistance for Self-Care/Mobility: Cognitive Status: Oriented x 3 Allergies penicillin (Anaphylaxis) Celebrex (Rash) Neosporin (Rash) goldbond cream (Rash) Adhesive Bandage (Rash) amoxicillin (Anaphylaxis) Noxema Triple Clean (Rash) sulfamethoxazole (unknown) Measurements: Height: 162.56 cm Weight: 74.9 kg Blood Pressure: 159 mmHg / 72 mmHg BMI: 29.21 kg/m2 Procedures Colonoscopy (10/26/2024) EGD - esophagogastroduodenoscopy (10/26/2024) Immunizations No Immunizations Documented This Visit Final Med List: acetaminophen (acetaminophen 325 mg Tab) 1 Tablets By Mouth 3 times a day as needed for fever. Take 1 tablet by mouth three times a day as needed. Refills: 1. acetaminophen-oxycodone (acetaminophen-oxycodone 325 mg-5 mg Tab) 1 Tablets By Mouth 3 times a day as needed for pain. May take between 8am and 8pm 30 day supply. Refills: 0. ascorbic acid (ascorbic acid 500 mg Tab) 1 Tablets By Mouth 2 times a day. Refills: 4. atorvastatin (atorvastatin 40 mg Tab) 1 Tablets By Mouth every day. Refills: 4. bisacodyl (bisacodyl 5 mg Oral EC Tab) 2 Tablets By Mouth Once as needed Constipation. buPROPion (BuPROPion (Eqv-Wellbutrin SR) 150 mg/12 hours oral tablet, extended release) 1 Tablets By Mouth 2 times a day. Refills: 4. carvedilol (carvedilol 12.5 mg Tab) 1 Tablets By Mouth 2 times a day. Refills: 4. diazepam (diazepam 2 mg Tab) 1 Tablets By Mouth 3 times a day. For 30 day supply. Refills: 0. dicyclomine (Bentyl 10 mg Cap) 1 Capsules By Mouth 4 times a day. Refills: 1. dulaglutide (dulaglutide 0.75 mg/0.5 mL subcutaneous solution) 0.75 Milligram Subcutaneous every week. Refills: 11. ferrous sulfate (ferrous sulfate 325 mg Tab) 1 Tablets By Mouth 2 times a day. Refills: 11. gabapentin (gabapentin 300 mg Cap) 1 Capsules By Mouth 3 times a day. Refills: 1. gabapentin (gabapentin 600 mg Tab) 1 Tablets By Mouth 3 times a day. Refills: 2. insulin aspart (insulin aspart 100 units/mL injectable solution) insulin degludec (Tresiba 100 units/mL subcutaneous solution) 10 Units Subcutaneous every day. levothyroxine (levothyroxine 112 mcg (0.112 mg) Tab) 1 Tablets By Mouth every day. Refills: 11. lisinopril (lisinopril 10 mg Tab) 1 Tablets By Mouth every day. Refills: 4. Misc Prescription ([employer] Blood Glucose Monitoring System) To check blood glucose levels. Refills: 2. 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 Refills: 0. Misc Prescription (sensors) francheska 2 sensors change q 14 days E11.42. Refills: 4. nystatin topical (nystatin Top 100,000 units/g Pwdr) 1 Application Topical 2 times a day. Refills: 2. omeprazole (omeprazole 20 mg Cap-DR) 1 Capsules By Mouth every day. Refills: 4. ondansetron (ondansetron 4 mg Tab) 1 Tablets By Mouth every 4 hours as needed Nausea/Vomiting. Refills: 3. oxybutynin (oxybutynin 5 mg ER Tab) 1 Tablets By Mouth every day. Refills: 4. paroxetine (Paxil 30 mg Tab) 2 Tablets By Mouth every day. polyethylene glycol 3350 (Miralax 3350 17 gram packet) 17 Gram By Mouth every day. Refills: 0. potassium chloride (potassium chloride 20 mEq ER Tab) 2 Tablets By Mouth e (more content not included)... [facility] Inpatient Clinical Summary Inpatient Clinical Summary [address] [address] Clinical Summary Person Information: Name: FARTUN SCHNEIDER Age: 69 Years : 1955 Sex: Female PCP: Marcelo Call DO Marital Status: Single Race: White Ethnicity: Non- or Language: Luxembourger Visit Id: Visit Reason: Hypotension; Diarrhea; Abdominal pain; fall Speciality: Acuity: Enc Type: Inpatient Med Service: Medical Arrival: 10/22/2024 14:22:13 Discharge: Dispo Type: Admitted as IP to this Hosp Address: [address] [place] [address] [place] [phone] Provider Notes: Diagnosis: 1:GI bleed; 2:Acute colitis; 3:Abnormal urinalysis; 4:Acute hypotension; 5:Hyperlipidemia; 6:HTN (hypertension); 7:Hypothyroidism; 8:DM2 (diabetes mellitus, type 2); 10:Chronic prescription opiate use; 11:Bipolar disorder; 12:On deep vein thrombosis (DVT) prophylaxis; 13:Acute blood loss anemia Problems Active Chronic prescription opiate use DM2 (diabetes mellitus, type 2) Bipolar disorder [facility] current use of insulin Type 2 diabetes mellitus with hyperlipidemia Hyperlipidemia Insomnia 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) At risk for falls Overactive bladder Closed subcapital fracture of right femur with routine healing, subsequent encounter Iron deficiency anemia Diabetes mellitus with polyneuropathy Personal history of colonic polyps Dysphagia Lower back pain Smoker HTN (hypertension) Chronic pain Chronic GERD Hypothyroidism Obesity Smoking Status: Never Smoker Functional Status: Sensory Deficits: History of Falls: Mobility Assistance Prior to Admission: ADLs: Minimal assistance Current Level of Assistance for Self-Care/Mobility: Cognitive Status: Oriented x 3 Allergies penicillin (Anaphylaxis) Celebrex (Rash) Neosporin (Rash) goldbond cream (Rash) Adhesive Bandage (Rash) amoxicillin (Anaphylaxis) Noxema Triple Clean (Rash) sulfamethoxazole (unknown) Measurements: Height: 162.56 cm Weight: 74.9 kg Blood Pressure: 159 mmHg / 72 mmHg BMI: 29.21 kg/m2 Procedures Colonoscopy (10/26/2024) EGD - esophagogastroduodenoscopy (10/26/2024) Immunizations No Immunizations Documented This Visit Final Med List: acetaminophen (acetaminophen 325 mg Tab) 1 Tablets By Mouth 3 times a day as needed for fever. Take 1 tablet by mouth three times a day as needed. Refills: 1. acetaminophen-oxycodone (acetaminophen-oxycodone 325 mg-5 mg Tab) 1 Tablets By Mouth 3 times a day as needed for pain. May take between 8am and 8pm 30 day supply. Refills: 0. ascorbic acid (ascorbic acid 500 mg Tab) 1 Tablets By Mouth 2 times a day. Refills: 4. atorvastatin (atorvastatin 40 mg Tab) 1 Tablets By Mouth every day. Refills: 4. bisacodyl (bisacodyl 5 mg Oral EC Tab) 2 Tablets By Mouth Once as needed Constipation. buPROPion (BuPROPion (Eqv-Wellbutrin SR) 150 mg/12 hours oral tablet, extended release) 1 Tablets By Mouth 2 times a day. Refills: 4. carvedilol (carvedilol 12.5 mg Tab) 1 Tablets By Mouth 2 times a day. Refills: 4. diazepam (diazepam 2 mg Tab) 1 Tablets By Mouth 3 times a day. For 30 day supply. Refills: 0. dicyclomine (Bentyl 10 mg Cap) 1 Capsules By Mouth 4 times a day. Refills: 1. dulaglutide (dulaglutide 0.75 mg/0.5 mL subcutaneous solution) 0.75 Milligram Subcutaneous every week. Refills: 11. ferrous sulfate (ferrous sulfate 325 mg Tab) 1 Tablets By Mouth 2 times a day. Refills: 11. gabapentin (gabapentin 300 mg Cap) 1 Capsules By Mouth 3 times a day. Refills: 1. gabapentin (gabapentin 600 mg Tab) 1 Tablets By Mouth 3 times a day. Refills: 2. insulin aspart (insulin aspart 100 units/mL injectable solution) insulin degludec (Tresiba 100 units/mL subcutaneous solution) 10 Units Subcutaneous every day. levothyroxine (levothyroxine 112 mcg (0.112 mg) Tab) 1 Tablets By Mouth every day. Refills: 11. lisinopril (lisinopril 10 mg Tab) 1 Tablets By Mouth every day. Refills: 4. Misc Prescription ([employer] Blood Glucose Monitoring System) To check blood glucose levels. Refills: 2. 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 Refills: 0. Misc Prescription (sensors) francheska 2 sensors change q 14 days E11.42. Refills: 4. nystatin topical (nystatin Top 100,000 units/g Pwdr) 1 Application Topical 2 times a day. Refills: 2. omeprazole (omeprazole 20 mg Cap-DR) 1 Capsules By Mouth every day. Refills: 4. ondansetron (ondansetron 4 mg Tab) 1 Tablets By Mouth every 4 hours as needed Nausea/Vomiting. Refills: 3. oxybutynin (oxybutynin 5 mg ER Tab) 1 Tablets By Mouth every day. Refills: 4. paroxetine (Paxil 30 mg Tab) 2 Tablets By Mouth every day. polyethylene glycol 3350 (Miralax 3350 17 gram packet) 17 Gram By Mouth every day. Refills: 0. potassium chloride (potassium chloride 20 mEq ER Tab) 2 Tablets By Mouth e (more content not included)... [facility] Inpatient Patient Summaryon 10-27-2024 Inpatient Patient Summary Inpatient Patient Summary FARTUN SCHNEIDER :1955 Visit Date:10/22/2024 Inpatient Discharge Instructions Your Care Team Admitting Physician - Sanaz ALEJANDRA DO Reason for Your Visit Nausea/diarrhea Your Diagnosis GI bleed Acute colitis Abnormal urinalysis Acute hypotension Hyperlipidemia HTN (hypertension) Hypothyroidism DM2 (diabetes mellitus, type 2) Chronic GERD Chronic prescription opiate use Bipolar disorder On deep vein thrombosis (DVT) prophylaxis Acute blood loss anemia Abdominal pain Diarrhea Diverticulosis Gastropathy Hernia, hiatal Hypotension Proctitis Rectal polyp Tests Performed Ova and Parasites Exam Routine -- Results Pending -- CTA Abdomen and Pelvis XR Chest Single View Please visit your patient portal for your results or contact your primary care physician. This Is Your Medications List Misc Prescription ([employer] Blood Glucose Monitoring System) Misc Prescription (reader) Misc Prescription (sensors) acetaminophen (acetaminophen 325 mg Tab) acetaminophen-oxycodone (acetaminophen-oxycodone 325 mg-5 mg Tab) ascorbic acid (ascorbic acid 500 mg Tab) atorvastatin (atorvastatin 40 mg Tab) bisacodyl (bisacodyl 5 mg Oral EC Tab) buPROPion (BuPROPion (Eqv-Wellbutrin SR) 150 mg/12 hours oral tablet, extended release) carvedilol (carvedilol 12.5 mg Tab) diazepam (diazepam 2 mg Tab) dicyclomine (Bentyl 10 mg Cap) dulaglutide (dulaglutide 0.75 mg/0.5 mL subcutaneous solution) ferrous sulfate (ferrous sulfate 325 mg Tab) gabapentin (gabapentin 300 mg Cap) gabapentin (gabapentin 600 mg Tab) insulin aspart (insulin aspart 100 units/mL injectable solution) insulin degludec (Tresiba 100 units/mL subcutaneous solution) levothyroxine (levothyroxine 112 mcg (0.112 mg) Tab) lisinopril (lisinopril 10 mg Tab) nystatin topical (nystatin Top 100,000 units/g Pwdr) omeprazole (omeprazole 20 mg Cap-DR) ondansetron (ondansetron 4 mg Tab) oxybutynin (oxybutynin 5 mg ER Tab) paroxetine (Paxil 30 mg Tab) polyethylene glycol 3350 (Miralax 3350 17 gram packet) potassium chloride (potassium chloride 20 mEq ER Tab) trazodone (traZODONE 100 mg Tab) [Image Removed: STOP]Stop taking these medications celecoxib (CeleBREX 100 mg Cap) dextromethorphan-guaifenesi n (Tussin DM 10 mg-100 mg/5 mL oral liquid) insulin glargine (Lantus 100 units/mL Injection-Insulin) liraglutide (Saxenda 18 mg/3 mL subcutaneous solution) Procedure History Colonoscopy (10/26/2024), EGD - esophagogastroduodenoscopy (10/26/2024), Aspiration of hip joint (04/11/2023), Aspiration of hip joint (02/13/2023), Repair of fracture of hip by nailing using fluoroscopic guidance (12/20/2022), History of hemiarthroplasty of right hip (11/25/2022), Esophagogastroduodenoscopy (05/09/2022), Arthroscopy of shoulder (08/16/2020), Excision of mass of neck (03/11/2019), Arthroplasty of finger (03/10/2018), percutaneous pinning left hip (10/03/2014), left total knee replacement with hardware removal (12/07/2013), right total knee arthroplasty (06/08/2013), Right knee (12/14/2012), BASILAR ARTHROPLASTY OF THUMB, Cyst - diagnostic aspiration, ESWL of kidney, gallbladder removed, jaw surgery, left knee ORIF, RENY BSO - Total abdominal hysterectomy and bilateral salpingo-oophorectomy, 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. Discharge Vitals Temperature (Oral) 36.3 ???C Heart Rate (Monitored) 91 Respiratory Rate 16 Blood Pressure 159/72 Weight 74.9 kg What to do next Instructions From Your Doctor Event Name Event Result Discharge Activity Activity as tolerated Discharge Diet(s) Calorie Controlled- 1800 Calorie Diet Pending Diagnostic Test Results None Discharge Instructions Alanis Resendiz office (GI ) to set up follow up appointment with [facility] center to have polyp removed. If you do not hear from them in 1-2 days please call the office. Keep follow up appointment.Avoid NSAIDs- see attached list Previously Scheduled Follow-Up Appointments Friday 1:00 PM EDT With: Marcelo Call DO Where: [facility] [address] [place] [address]- 2024 11:00 AM EDT With: Where: [facility] [address] [place] [address]- New Follow Up Appointments after Discharge Follow Up with Marcelo Call When: Where: [address] [place] [address]- Business (1) Follow Up with Marga Duckworth When: Comments: Call for followup appointment 2 weeks. Where: [address], [address] [place] [address]- [phone] Business (1) Someone Will Contact You Regarding These Appointments [facility] [place] External Ambulatory Referral, Gastroenterology, 10/26/24 11:03:00 EDT, Rectal polyp Medications What How Much When Why Instructions Next Dose Changed acetaminophen (acetaminophen 325 mg Tab) 1 Tablets By Mout (more content not included)... [facility] Inpatient Patient Summary Inpatient Patient Summary [facility] [address] [place], [place] [address] Patient Discharge Instructions PERSON INFORMATION Name: FARTUN SCHNEIDER Date of : 1955 Current Date: 10/27/2024 11:38:59 PHYSICIANS Admitting Physician: Sanaz ALEJANDRA DO Primary Care Physician: Marcelo Call DO PCP Comment: Discharge Diagnosis: 1:GI bleed; 2:Acute colitis; 3:Abnormal urinalysis; 4:Acute hypotension; 5:Hyperlipidemia; 6:HTN (hypertension); 7:Hypothyroidism; 8:DM2 (diabetes mellitus, type 2); 10:Chronic prescription opiate use; 11:Bipolar disorder; 12:On deep vein thrombosis (DVT) prophylaxis; 13:Acute blood loss anemia Condition at Discharge: Stable FARTUN SCHNEIDER has been given the following list of follow-up instructions, prescriptions, and patient education materials: PATIENT FOLLOW-UP INFORMATION Diet: Calorie Controlled- 1800 Calorie Diet Discharge Activity: Activity as tolerated Discharge Restrictions: Wound Care Instructions: Remove Your Dressing In Days Call Your Doctor For: IF UNABLE TO CONTACT YOUR PHYSICIAN AND YOU FEEL IT IS AN EMERGENCY, GO TO THE NEAREST EMERGENCY ROOM OR CALL 911 Home Treatment: Devices/Equipment: Walker Special Services: Additional Instructions: Alanis Resendiz office (GI ) to set up follow up appointment with advanced endoscopy center/surgery center to have polyp removed. If you do not hear from them in 1-2 days please call the office. Keep follow up appointment. Avoid NSAIDs- see attached list Primary Care Physician to provide the following pending test results: None Follow up: With: Address: When: Marcelo Call [address] [place] [address] Business (1) 11/05/2024 1:00 PM Comments: Doctor's office cancalled November 04. With: Address: When: Marga Duckworth [address], [address] [place] [phone] Business (1) Comments: Call for followup appointment 2 weeks. In the event that this physician does not participate in your insurance network, please consult with your insurance company to find a nearby participating provider. Type Location Start [facility] Follow Up [facility] 11/05/2024 1:00 PM 11/05/2024 1:40 PM Confirmed Medicare Wellness Subsequent [facility] 11/11/2024 11:00 AM 11/11/2024 12:00 PM Confirmed Comment: ZACH Em NANCY A, have received the attached patient education materials/instructions and have verbalized understanding: Patient Signature Date Clinican/Nurse Signature Date HERE ARE THE MEDICATION CHANGES THAT OCCURRED DURING YOUR HOSPITAL STAY Medications to Continue Taking That Have Changed Other Medications START: acetaminophen (acetaminophen 325 mg Tab) 1 Tablets By Mouth 3 times a day as needed for fever. Take 1 tablet by mouth three times a day as needed. Refills: 1. Last Dose: Ne xt Dose: STOP: acetaminophen (Tylenol 325 mg Tab) 1 Tablets By Mouth 3 times a day. 1 tablet by mouth three times a day as needed. START: paroxetine (Paxil 30 mg Tab) 2 Tablets By Mouth every day. Last Dose: Ne xt Dose: STOP: paroxetine (paroxetine 40 mg Tab) 1 Tablets By Mouth every day. Refills: 0. Medications to Continue with No Changes Other Medications acetaminophen-oxycodone (acetaminophen-oxycodone 325 mg-5 mg Tab) 1 Tablets By Mouth 3 times a day as needed for pain. May take between 8am and 8pm 30 day supply. Refills: 0. Last Dose: Ne xt Dose: ascorbic acid (ascorbic acid 500 mg Tab) 1 Tablets By Mouth 2 times a day. Refills: 4. Last Dose: Ne xt Dose: atorvastatin (atorvastatin 40 mg Tab) 1 Tablets By Mouth every day. Refills: 4. Last Dose: Ne xt Dose: bisacodyl (bisacodyl 5 mg Oral EC Tab) 2 Tablets By Mouth Once as needed Constipation. Last Dose: Ne xt Dose: buPROPion (BuPROPion (Eqv-Wellbutrin SR) 150 mg/12 hours oral tablet, extended release) 1 Tablets By Mouth 2 times a day. Refills: 4. Last Dose: Ne xt Dose: carvedilol (carvedilol 12.5 mg Tab) 1 Tablets By Mouth 2 times a day. Refills: 4. Last Dose: Ne xt Dose: diazepam (diazepam 2 mg Tab) 1 Tablets By Mouth 3 times a day. For 30 day supply. Refills: 0. Last Dose: Ne xt Dose: dicyclomine (Bentyl 10 mg Cap) 1 Capsules By Mouth 4 times a day. Refills: 1. Last Dose: Ne xt Dose: dulaglutide (dulaglutide 0.75 mg/0.5 mL subcutaneous solution) 0.75 Milligram Subcutaneous every week. Refills: 11. Last Dose: (more content not included)... [facility] Inpatient Patient Summary Inpatient Patient Summary [place] [id number] Patient Discharge Instructions PERSON INFORMATION Name: FARTUN SCHNEIDER Date of : 1955 Current Date: 10/27/2024 11:04:36 PHYSICIANS Admitting Physician: Sanaz ALEJANDRA DO Primary Care Physician: Marcelo Call DO PCP Comment: Discharge Diagnosis: 1:GI bleed; 2:Acute colitis; 3:Abnormal urinalysis; 4:Acute hypotension; 5:Hyperlipidemia; 6:HTN (hypertension); 7:Hypothyroidism; 8:DM2 (diabetes mellitus, type 2); 10:Chronic prescription opiate use; 11:Bipolar disorder; 12:On deep vein thrombosis (DVT) prophylaxis; 13:Acute blood loss anemia Condition at Discharge: Stable FARTUN SCHNEIDER has been given the following list of follow-up instructions, prescriptions, and patient education materials: PATIENT FOLLOW-UP INFORMATION Diet: Calorie Controlled- 1800 Calorie Diet Discharge Activity: Activity as tolerated Discharge Restrictions: Wound Care Instructions: Remove Your Dressing In Days Call Your Doctor For: IF UNABLE TO CONTACT YOUR PHYSICIAN AND YOU FEEL IT IS AN EMERGENCY, GO TO THE NEAREST EMERGENCY ROOM OR CALL 911 Home Treatment: Devices/Equipment: Walker Special Services: Additional Instructions: Alanis Resendiz office (GI ) to set up follow up appointment with [facility]surgery center to have polyp removed. If you do not hear from them in 1-2 days please call the office. Keep follow up appointment. Avoid NSAIDs- see attached list Primary Care Physician to provide the following pending test results: None Follow up: With: Address: When: Marga Duckworth [address] [place] [phone] Business (1) Comments: Call for followup appointment 2 weeks. With: Address: When: Marcelo Link [address] [place], [place] [id number] Business (1) Comments: Call for followup appointment In the event that this physician does not participate in your insurance network, please consult with your insurance company to find a nearby participating provider. Type Location Start Finish State FM Open [facility] 11/04/2024 9:20 AM 11/04/2024 9:40 AM Confirmed FM Medicare Wellness Subsequent [facility] 11/11/2024 11:00 AM 11/11/2024 12:00 PM Confirmed Comment: ZACH Em NANCY A, have received the attached patient education materials/instructions and have verbalized understanding: Patient Signature Date Clinican/Nurse Signature Date HERE ARE THE MEDICATION CHANGES THAT OCCURRED DURING YOUR HOSPITAL STAY Medications to Continue Taking That Have Changed Other Medications START: acetaminophen (acetaminophen 325 mg Tab) 1 Tablets By Mouth 3 times a day as needed for fever. Take 1 tablet by mouth three times a day as needed. Refills: 1. Last Dose: Ne xt Dose: STOP: acetaminophen (Tylenol 325 mg Tab) 1 Tablets By Mouth 3 times a day. 1 tablet by mouth three times a day as needed. START: paroxetine (Paxil 30 mg Tab) 2 Tablets By Mouth every day. Last Dose: Ne xt Dose: STOP: paroxetine (paroxetine 40 mg Tab) 1 Tablets By Mouth every day. Refills: 0. Medications to Continue with No Changes Other Medications acetaminophen-oxycodone (acetaminophen-oxycodone 325 mg-5 mg Tab) 1 Tablets By Mouth 3 times a day as needed for pain. May take between 8am and 8pm 30 day supply. Refills: 0. Last Dose: Ne xt Dose: ascorbic acid (ascorbic acid 500 mg Tab) 1 Tablets By Mouth 2 times a day. Refills: 4. Last Dose: Ne xt Dose: atorvastatin (atorvastatin 40 mg Tab) 1 Tablets By Mouth every day. Refills: 4. Last Dose: Ne xt Dose: bisacodyl (bisacodyl 5 mg Oral EC Tab) 2 Tablets By Mouth Once as needed Constipation. Last Dose: Ne xt Dose: buPROPion (BuPROPion (Eqv-Wellbutrin SR) 150 mg/12 hours oral tablet, extended release) 1 Tablets By Mouth 2 times a day. Refills: 4. Last Dose: Ne xt Dose: carvedilol (carvedilol 12.5 mg Tab) 1 Tablets By Mouth 2 times a day. Refills: 4. Last Dose: Ne xt Dose: diazepam (diazepam 2 mg Tab) 1 Tablets By Mouth 3 times a day. For 30 day supply. Refills: 0. Last Dose: Ne xt Dose: dicyclomine (Bentyl 10 mg Cap) 1 Capsules By Mouth 4 times a day. Refills: 1. Last Dose: Ne xt Dose: dulaglutide (dulaglutide 0.75 mg/0.5 mL subcutaneous solution) 0.75 Milligram Subcutaneous every week. Refills: 11. Last Dose: Ne xt Dose: ferrous (more content not included)... [facility] Interdisciplinary Note - Hardeep e Manageron 10-27-2024 Interdisciplinary Note - Information Security Interdisciplinary Note - Information Security GUALBERTO spoke with attending and patient to DC today. CM followed up with patient at bedside. Patient denies any additional DC needs and plan is home to [place] at [facility]. CM updated facility and they request report be called to [phone]. Sister will transport. CM reviewed IMM and copy at bedside. All in agreement with DC plan. GUALBERTO received call from bedside RN who called report to AL and was told patient now cannot return without a PT eval. CM contacted facility and spoke to Shyann. GUALBERTO discussed with Shyann that CM has been sending daily updates to facility and never once was requested for a PT eval and CM was never notified that PT eval was required for patient to return to her home. CM spoke to bedside RN and there is no concerns about mobility and patient walks with a walker to bathroom no issues. Patient very upset when she found out facility is refusing to accept her back and CM up to talk to patient. Sister has arrived and waiting in car with patient's cat to transport her. Patient at this time told bedside she wants to leave AMA. CM in with patient and at this time AL has decided to accept patient back. AL called patient and informed her that she can return and [facility]. Patient is still very upset that AL did this to her but grateful and excited to return home. CM also had conversation with patient about any concerns about going home or her mobility and patient who is alert and oriented and knows her own limitations states she has no concerns and able to care for herself. Aide in to transport patient to car for DC. All in agreement with plan. [facility] Comment on above: Result Comment: Elec tronically Signed By: Tosha Walker I\.br\Date and Time Signed: 10/27/24 13:22 EDT Interdisciplinary Note - Information Security Interdisciplinary Note - Information Security CM spoke with attending and patient to DC today. CM followed up with patient at bedside. Patient denies any additional DC needs and plan is home to [place] at [facility]. CM updated facility and they request report be called to [phone]. Sister will transport. CM reviewed IMM and copy at bedside. All in agreement with DC plan. [facility] Comment on above: Result Comment: Elec tronically Signed By: Tosha Walker I\.br\Date and Time Signed: 10/27/24 09:07 EDT Interdisciplinary Note - Dustin kathleen 10-27-2024 Interdisciplinary Note - Nursing Interdisciplinary Note - Nursing Report called to patient's nurse at [facility]. Paperwork to fax to [phone]. [facility] 10-27-2024 Anion gap [Moles/Vol] 9 mmol/L Normal 6-16 [facility] Comment on above: Performed By: #### 2 [id number] #### [facility] [address] [place] [address] Chloride [Moles/Vol] 111 mmol/L Normal 101-111 [facility] Comment on above: Performed By: #### 2 [id number] #### [facility] [address] [place] [address] CO2 [Moles/Vol] 28 mmol/L Normal 21-31 [facility] Comment on above: Performed By: #### 2 [id number] #### [facility] [address] [place] [address] Potassium [Moles/Vol] 3.6 mmol/L Normal 3.5-5.3 [facility] Comment on above: Performed By: #### 2 [id number] #### [facility] [address] [place] [address] Sodium [Moles/Vol] 144 mmol/L Normal 135-145 [facility] Comment on above: Performed By: #### 2 [id number] #### [facility] [address] [place] [address] Main OR Intraoperative Recor don 10-27-2024 Main OR Intraoperative Record Main OR Intraoperative Record IntraOp Document Type FT Summary Primary Physician: Marga Duckworth MD Finalized Date/Time: 10/27/24 09:10:21 Pt. Name: FARTUN SCHNEIDER/Sex: 1955 Female Med Rec #: [id number] Physician: Sanaz ALEJANDRA DO Financial #: [id number] Pt. Type: I Room/Bed: [facility]/ Admit/Disch: 10/22/24 14:22:13 - Institution: Case Times FT Entry 1 Patient Times In Room 10/26/24 08:31:00 Out Room 10/26/24 08:59:00 Procedure Times Start 10/26/24 08:36:00 Stop 10/26/24 08:56:00 Anesthesia Times Start 10/26/24 08:31:00 Stop 10/26/24 08:59:00 Time at [facility] 10/26/24 08:48:00 Last Modified By: Sanjuana LEES, Kirstin 10/26/24 08:57:36 General Comments: 0840-EGD completed/AW RN 0843-colonoscopy started/AW RN Case Attendance FT Entry 1 Entry 2 Entry 3 Case Attendee Orville MORRIS, Jelani Duckworth MD, Marga Wei RN, Kirstin Role Performed Anesthesiologist Surgeon - Primary Instrument Repair Supervisor - Primary Lithographers Printer Time In 10/26/24 08:31:00 10/26/24 08:31:00 10/26/24 08:31:00 Time Out 10/26/24 08:59:00 10/26/24 08:59:00 10/26/24 08:59:00 Procedure EGD AND COLONOSCOPY(.) EGD AND COLONOSCOPY(.) EGD AND COLONOSCOPY(.) Comments Dr. Park supervising Last Modified By: Sanjuana RN, Kirstin Wei RN, Kirstin Wei RN, Kirstin 10/26/24 08:57:37 10/26/24 08:57:37 10/26/24 08:57:37 Entry 4 Entry 5 Case Attendee Poppy Feliciano UNDER GROUND MINER, Cat Myers Role Performed Scrub - Primary Staff - Other Time In 10/26/24 08:31:00 10/26/24 08:31:00 Time Out 10/26/24 08:59:00 10/26/24 08:59:00 Procedure EGD AND COLONOSCOPY(.) EGD AND COLONOSCOPY(.) Comments help in room Last Modified By: Sanjuana RN, Kirstin Wei RN, Kirstin 10/26/24 08:57:37 10/26/24 08:57:37 Perioperative Protocols FT Pre-Care Text: Implements protective measures prior to operative or invasive procedure, confirms identity before the operative or invasive procedure, verifies operative procedure, surgical site, and laterality Entry 1 Procedure(s) EGD AND COLONOSCOPY(.) Patient Identity Birthday, ID Band Verified (select at Check, Patient least 2): Participation Consents / H and P Anesthesia Consent, Operative Site N/A Verified H&P, Surgery/Procedure Marking Verified Consent Surgical Site No Laterality Verified n/a Verified Procedure Verified Yes Correct Patient Yes Position Verified Availability Equipment, Medication Prep Dry n/a Verified (If Applicable) PreOp Antibiotic No Time Out Jelani Forrester Given Participants Donita Chatterjee MD, Marga Moon, Kirstin Wei RN, Miles, Kirstyn K, Schafer CST, Cat Myers Time Out Complete 10/26/24 08:34:00 Outcomes Met? Yes Last Modified By: Kirstin Wei RN 10/26/24 08:46:22 Post-Care Text: The patient is free from signs and symptoms of injury caused by extraneous objects Allergy Information FT Pre-Care Text: Verifies allergies Entry 1 Allergies Reviewed? Yes Allergies Reviewed Self/Patient With Outcomes Met? Yes Last Modified By: Kirstin Wei RN 10/26/24 08:46:29 Post-Care Text: The patient received appropriate medication(s) safely administered during the perioperative period Surgical Procedures FT Entry 1 Procedure Description Procedure EGD AND COLONOSCOPY Modifiers . Surgeon Description EGD with duodenal, gastric and esophageal exudate biopsies. COLONOSCOPY with left colon biopsy, lower rectal/anal mass biopsy Primary Procedure Yes Primary Surgeon Donita BANKS, Marga Moon Start 10/26/24 08:36:00 Stop 10/26/24 08:55:00 Anesthesia Type General Surgical Service Gastroenterology Wound Class 2 - Clean-Contaminated Last Modified By: Kirstin Wei RN 10/26/24 08:55:52 General Case Data FT Pre-Care Text: Classifies surgical wound, implements aseptic technique, initiates traffic control Entry 1 Case Information OR ENDO 1 FT Case Level Level 2 Wound Class 2 - Clean-Contaminated Specialty Gastroenterology ASA Class 3 Preop Diagnosis Diarrhea, abdominal pain Postop Same As Preop No Postop Diagnosis EGD- gastropathy, Outcomes Met? Yes hiatal hernia, esophageal exudate. Colonoscopy-inflammation in rectum with lower rectal /anal mass , diverticulosis, internal hemorrhoids Last Modified By: Aliyah Huerta CST 10/27/24 09:10:19 Post-Care Text: The patient is free from signs and symptoms of infection Skin Assessment (Pre Procedure) FT Pre-Care Text: Implements protective measures to prevent skin/ tissue injury due to thermal or mechanical sources Evaluates for signs and symptoms of physical injury to skin and tissue Entry 1 Skin Integrity Dry, Pale, [place], Skin Abnormality No Intact, Warm Outcomes Met? Yes Last Modified By: Kirstin Wei RN 10/26/24 08:48:02 Post-Care Text: The patient is free from signs and symptoms of injury caused by extraneous objects Patient Positioning FT Pre-Care Text: Identifies physical alterations (more content not included)... [facility] Capillary Glucose POCon 09-29 Glucose [Mass/Vol] 249 mg/dL High 55-99 [facility] Comment on above: Result Comment: Fausto CHAUDHARY Performed By: #### 2 [id number] #### [facility] [address] [place] [address] Glucose [Mass/Vol] 219 mg/dL High 55-99 [facility] Comment on above: Result Comment: Fausto CHAUDHARY Performed By: #### 2 [id number] #### [facility] [address] [place] [address] Glucose [Mass/Vol] 147 mg/dL High 55-99 [facility] Comment on above: Result Comment: Fausto CHAUDHARY Performed By: #### 2 [id number] #### [facility] [address] [place] [address] Glucose [Mass/Vol] 178 mg/dL High 55-99 [facility] Comment on above: Performed By: #### 2 [id number] #### [facility] [address] [place] [address] H&P Updateon 10-26-2024 H&P Update H&P Update Patient: FARTUN SCHNEIDER Age: 69 years Sex: Female : 1955 Associated Diagnoses: None Author: Donita BANKS, Marga Moon Preoperative Information Chief compliant/Indication for procedure: Diarrhea, abdominal pain Chief Complaint as above Review of Systems All systems reviewed, negative except as mentioned above Health Status Allergies: Allergic Reactions (Selected) Severity Not Documented Adhesive Bandage- Rash. Amoxicillin- Anaphylaxis. Celebrex- Rash. Goldbond cream- Rash. Neosporin- Rash. Noxema Triple Clean- Rash. Penicillin- Anaphylaxis. Sulfamethoxazole- Unknown. Current medications: (Selected) Inpatient Medications Ordered Benadryl 25 mg Cap: 25 mg = 1 cap(s), Cap, Oral, q6hr PRN Itching, Routine, Start date 10/22/24 21:01:00 EDT, 10/22/24 21:01:00 EDT Bentyl 10 mg Cap: 10 mg = 1 cap(s), Cap, Oral, QID, Routine, Start date 10/23/24 9:00:00 EDT, 10/22/24 23:26:00 EDT Dextrose 50% Soln-IV: 50 mL, Soln-IV, IV Push, q15min PRN Low blood sugar, Routine, Start date 10/22/24 21:01:00 EDT, Blood glucose < 70 mg/dL Insulin Lispro Moderate Dose (Usual) Sliding Scale: 0-12 Unit(s), Injection-Insulin, SubCutaneous, QIDACHS, NOW, Start date 10/22/24 21:18:00 EDT NS 1000 mL Soln-IV 1,000 mL: 1,000 mL, IV, 20 mL/hr, Routine, Start date 10/25/24 11:37:00 EDT, 50 hour(s), Total volume (mL): 1,000, 71 kg, SEND PATIENT TO ENDOSCOPY WITH IV INFUSING, 1.79, m2 Paxil 20 mg Tab: 60 mg = 3 tab(s), Tab, Oral, Daily, Routine, Start date 10/23/24 9:00:00 EDT Valium 5 mg Tab: 2.5 mg = 0.5 tab(s), Tab, Oral, TID, Routine, Start date 10/23/24 8:00:00 EDT, 10/22/24 23:26:00 EDT Wellbutrin SR 150 mg Tab-ER: 150 mg = 1 tab(s), Tab-ER, Oral, BID, NOW, Start date 10/22/24 23:25:00 EDT, 10/22/24 23:25:00 EDT Zofran 4 mg/2 mL Injection: 4 mg = 2 mL, Injection, IV Push, q6hr PRN Nausea, Routine, Start date 10/22/24 21:01:00 EDT, 10/22/24 21:01:00 EDT acetaminophen 325 mg Tab: 650 mg = 2 tab(s), Tab, Oral, q6hr PRN Pain, Routine, Start date 10/22/24 21:01:00 EDT, 10/22/24 21:01:00 EDT atorvastatin 40 mg Tab: 40 mg = 1 tab(s), Tab, Oral, Daily, Routine, Start date 10/23/24 9:00:00 EDT, 10/22/24 23:25:00 EDT carvedilol 12.5 mg Tab: 12.5 mg = 1 tab(s), Tab, Oral, BID, NOW, Start date 10/22/24 23:25:00 EDT, 10/22/24 23:25:00 EDT gabapentin 300 mg Cap: 900 mg = 3 cap(s), Cap, Oral, TID, NOW, Start date 10/22/24 23:27:00 EDT, 10/22/24 23:27:00 EDT glucagon recombinant 1 mg Inj: 1 mg = 1 EA, Injection, IntraMuscular, q15min PRN Low blood sugar, Routine, Start date 10/22/24 21:01:00 EDT, Blood glucose <70 mg/dL, 10/22/24 21:01:00 EDT glucose Oral gel: 15 gm = 32 mL, Gel, Oral, q15min PRN Low blood sugar, Routine, Start date 10/22/24 21:01:00 EDT, Blood glucose <70 mg/dL, 10/22/24 21:01:00 EDT hydrALAZINE 20 mg/mL Inj: 10 mg = 0.5 mL, Injection, IV Push, q6hr PRN Other (see comment), Routine, Start date 10/22/24 21:01:00 EDT, 10/22/24 21:01:00 EDT insulin glargine 100 units/mL SubQ Jane 10 mL: 10 unit(s) = 0.1 mL, Injection-Insulin, SubCutaneous, Bedtime, Routine, Start date 10/23/24 21:00:00 EDT levothyroxine 112 mcg (0.112 mg) Tab: 112 mcg = 1 tab(s), Tab, Oral, Daily, Routine, Start date 10/23/24 6:30:00 EDT, 10/22/24 23:27:00 EDT lisinopril 10 mg Tab: 10 mg = 1 tab(s), Tab, Oral, Daily, Routine, Start date 10/23/24 9:00:00 EDT, 10/22/24 23:27:00 EDT methylPREDNISolone 40 mg preservative-free injection (SOLU-MEDROL): 40 mg = 1 mL, Injection, IV Push, Daily for 3 dose(s), Stop date 10/28/24 8:59:00 EDT, NOW, Start date 10/25/24 16:58:00 EDT, 10/25/24 16:58:00 EDT oxyCODONE 5 mg Tab: 5 mg = 1 tab(s), Tab, Oral, q4hr PRN Pain for 5 day(s), Stop date 10/27/24 21:01:00 EDT, Routine, Start date 10/22/24 21:02:00 EDT, 10/22/24 21:02:00 EDT oxybutynin 5 mg ER Tab: 5 mg = 1 tab(s), Tab-ER, Oral, Daily, Routine, Start date 10/23/24 9:00:00 EDT, 10/22/24 23:28:00 EDT pantoprazole 40 mg IV Inj: 40 mg = 10 mL, Injection, IV Push, BID, Routine, Start date 10/23/24 9:00:00 EDT, mL/hr, Infuse over 2 minute(s) potassium chloride additive + premix generic diluent 100 mL: 20 mEq = 100 mL, Soln-IV, IV Piggyback, q2hr for 2 dose(s), Stop date 10/26/24 11:59:00 EDT, Routine, Start date 10/26/24 8:00:00 EDT, 50 mL/hr, Infuse over 2 hour(s) traZODONE 50 mg Tab: 100 mg = 2 tab(s), Tab, Oral, Once a day (at bedtime), NOW, Start date 10/22/24 23:28:00 EDT, 10/22/24 23:28:00 EDT Prescriptions Prescribed Assure Prism Multi Blood Glucose Monitoring System: Assure Prism Multi Blood Glucose Monitoring System, See Instructions, 1 kit(s), 2, To check blood glucose levels, [facility], Supply, 162.5, cm, 12/30/23 17:04:00 EDT, Height/Length Dosing, 79.1, kg, 12/30/23 17:04:00 EDT, Weight Dosing... Bentyl 10 mg Cap: 10 mg = 1 cap(s), Oral, QID, # 360 cap(s), Refills(s) 1, Pharmacy: [facility], 162, cm, 08/23/24 15:21:00 EDT, Height/Length Dosing, 73, kg, 08/23/24 15:21:00 EDT, Weight Dosing B (more content not included)... [facility] Comment on above: Result Comment: Elec tronically Signed By: Donita BANKS, Marga Arboleda.br\Date and Time Signed: 10/26/24 08:34 EDT Hct & Hgbon 10-26-2024 Hematocrit (Bld) [Volume fraction] 32.8 % Low 34.0-46.0 [facility] Comment on above: Performed By: #### 1 [id number] #### [facility] [address] [place] [address] Hemoglobin (Bld) [Mass/Vol] 11.7 g/dL Low 12.0-16.0 [facility] Comment on above: Performed By: #### 1 [id number] #### [facility] [address] [place] [address] Interdisciplinary Note - Hardeep e Manageron 10-26-2024 Interdisciplinary Note - Information Security Interdisciplinary Note - Information Security CM rounded with attending Loretta and possible DC tomorrow pending GI clearance. Colon and EGD completed. Kamlesh Boyd continues to be updated on DC plan. CM to follow. Facility request nurse report to call please call report to [phone] and ask for nurse for this patient at discharge. [facility] Comment on above: Result Comment: Elec tronically Signed By: Tosha Walker I\.br\Date and Time Signed: 10/26/24 10:53 EDT [place] 10-26-2024 Anion gap [Moles/Vol] 12 mmol/L Normal 6-16 [facility] Comment on above: Performed By: #### 2 [id number] #### [facility] [address] [place] [address] Chloride [Moles/Vol] 107 mmol/L Normal 101-111 [facility] Comment on above: Performed By: #### 2 [id number] #### [facility] [address] [place] [address] CO2 [Moles/Vol] 26 mmol/L Normal 21-31 [facility] Comment on above: Performed By: #### 2 [id number] #### [facility] [address] [place] [address] Potassium [Moles/Vol] 3.3 mmol/L Low 3.5-5.3 [facility] Comment on above: Performed By: #### 2 [id number] #### [facility] [address] [place] [address] Sodium [Moles/Vol] 142 mmol/L Normal 135-145 [facility] Comment on above: Performed By: #### 2 [id number] #### [facility] [address] [place] [address] Main OR Intraoperative Recor don 10-26-2024 Main OR Intraoperative Record Main OR Intraoperative Record IntraOp Document Type FT Summary Primary Physician: Marga Duckworth MD Finalized Date/Time: 10/26/24 09:12:45 Pt. Name: FARTUN SCHNEIDER/Sex: 1955 Female Med Rec #: [id number] Physician: Sanaz ALEJANDRA DO Financial #: [id number] Pt. Type: I Room/Bed: N306 Admit/Disch: 10/22/24 14:22:13 - Institution: Case Times FT Entry 1 Patient Times In Room 10/26/24 08:31:00 Out Room 10/26/24 08:59:00 Procedure Times Start 10/26/24 08:36:00 Stop 10/26/24 08:56:00 Anesthesia Times Start 10/26/24 08:31:00 Stop 10/26/24 08:59:00 Time at [facility] 10/26/24 08:48:00 Last Modified By: Kirstin Wei RN 10/26/24 08:57:36 General Comments: 0840-EGD completed/AW RN 0843-colonoscopy started/AW RN Case Attendance FT Entry 1 Entry 2 Entry 3 Case Attendee Jelani Forrester MD, Marga Wei RN, Kirstin Role Performed Anesthesiologist Surgeon - Primary Instrument Repair Supervisor - Primary Lithographers Printer Time In 10/26/24 08:31:00 10/26/24 08:31:00 10/26/24 08:31:00 Time Out 10/26/24 08:59:00 10/26/24 08:59:00 10/26/24 08:59:00 Procedure EGD AND COLONOSCOPY(.) EGD AND COLONOSCOPY(.) EGD AND COLONOSCOPY(.) Comments Dr. Park supervising Last Modified By: Sanjuana RN, Kirstin Wei RN, Kirstin Wei RN, Kirstin 10/26/24 08:57:37 10/26/24 08:57:37 10/26/24 08:57:37 Entry 4 Entry 5 Case Attendee Poppy Feliciano UNDER GROUND MINER, Cat Myers Role Performed Scrub - Primary Staff - Other Time In 10/26/24 08:31:00 10/26/24 08:31:00 Time Out 10/26/24 08:59:00 10/26/24 08:59:00 Procedure EGD AND COLONOSCOPY(.) EGD AND COLONOSCOPY(.) Comments help in room Last Modified By: Sanjuana RN, Kirstin Wei RN, Kirstin 10/26/24 08:57:37 10/26/24 08:57:37 Perioperative Protocols FT Pre-Care Text: Implements protective measures prior to operative or invasive procedure, confirms identity before the operative or invasive procedure, verifies operative procedure, surgical site, and laterality Entry 1 Procedure(s) EGD AND COLONOSCOPY(.) Patient Identity Birthday, ID Band Verified (select at Check, Patient least 2): Participation Consents / H and P Anesthesia Consent, Operative Site N/A Verified H&P, Surgery/Procedure Marking Verified Consent Surgical Site No Laterality Verified n/a Verified Procedure Verified Yes Correct Patient Yes Position Verified Availability Equipment, Medication Prep Dry n/a Verified (If Applicable) PreOp Antibiotic No Time Out Jelani Forrester Given Donita Herrera MD, Mohamad A., Kirstin Wei RN, Miles, Kirstyn K, Schafer CST, Cat Myers Time Out Complete 10/26/24 08:34:00 Outcomes Met? Yes Last Modified By: Kirstin Wei RN 10/26/24 08:46:22 Post-Care Text: The patient is free from signs and symptoms of injury caused by extraneous objects Allergy Information FT Pre-Care Text: Verifies allergies Entry 1 Allergies Reviewed? Yes Allergies Reviewed Self/Patient With Outcomes Met? Yes Last Modified By: Kirstin Wei RN 10/26/24 08:46:29 Post-Care Text: The patient received appropriate medication(s) safely administered during the perioperative period Surgical Procedures FT Entry 1 Procedure Description Procedure EGD AND COLONOSCOPY Modifiers . Surgeon Description EGD with duodenal, gastric and esophageal exudate biopsies. COLONOSCOPY with left colon biopsy, lower rectal/anal mass biopsy Primary Procedure Yes Primary Surgeon Marga Duckworth MD 10/26/24 08:36:00 Stop 10/26/24 08:55:00 Anesthesia Type General Surgical Service Gastroenterology Wound Class 2 - Clean-Contaminated Last Modified By: Kirstin Wei RN 10/26/24 08:55:52 General Case Data FT Pre-Care Text: Classifies surgical wound, implements aseptic technique, initiates traffic control Entry 1 Case Information OR ENDO 1 FT Case Level Level 2 Wound Class 2 - Clean-Contaminated Specialty Gastroenterology Preop Diagnosis Diarrhea, abdominal pain Postop Same As Preop No Postop Diagnosis EGD- gastropathy, Outcomes Met? Yes hiatal hernia, esophageal exudate. Colonoscopy-inflammation in rectum with lower rectal /anal mass , diverticulosis, internal hemorrhoids Last Modified By: Kirstin Wei RN 10/26/24 09:12:39 Post-Care Text: The patient is free from signs and symptoms of infection Skin Assessment (Pre Procedure) FT Pre-Care Text: Implements protective measures to prevent skin/ tissue injury due to thermal or mechanical sources Evaluates for signs and symptoms of physical injury to skin and tissue Entry 1 Skin Integrity Dry, Pale, [place], Skin Abnormality No Intact, Warm Outcomes Met? Yes Last Modified By: Kirstin Wei RN 10/26/24 08:48:02 Post-Care Text: The patient is free from signs and symptoms of injury caused by extraneous objects Patient Positioning FT Pre-Care Text: Identifies physical alterations that require (more content not included)... Normal [facility] Main OR PACU II [place] Main OR PACU II Record Main OR PACU II Record PACU Phase II Document Type FT Summary Primary Physician: Marga Duckworth MD Finalized Date/Time: 10/26/24 09:44:25 Pt. Name: FARTUN SCHNEIDER Clayton Brunner./Sex: 1955 Female Med Rec #: [id number] Physician: Sanaz ALEJANDRA DO Financial #: [id number] Pt. Type: I Room/Bed: [place] [address] Admit/Disch: 10/22/24 14:22:13 - Institution: Case Times PACU II FT Pre-Care Text: Identifies barriers to communication and implements measures to provide psychological support and determines knowledge level Develops individualized plan of care, and ensures continuity of care Maintains patient's dignity and privacy, and maintains patient confidentiality Identifies and reports philosophical, cultural, and spiritual beliefs and values Identifies individual values and wishes concerning care administers prescribed antibiotic therapy and immunizing agents as ordered, Evaluates postoperative tissue perfusion Implements thermoregulation measures, and monitors body temperature Evaluates postoperative respiratory status Evaluates postoperative cardiac status Evaluates postoperative neurological status Assesses pain control, collaborated in initiating patient-controlled analgesia and implements alternative methods of pain control Verifies allergies, administers prescribed medications and solutions, evaluates response to medications Entry 1 In PACU II 10/26/24 09:00:00 Discharge from PACU 10/26/24 09:25:00 II Outcomes Met? Yes Last Modified By: Priscilla High RN 10/26/24 09:44:19 Post-Care Text: The patient demonstrates knowledge of [...] affecting his or her perioperative plan of care. The patient is free from signs and [...] from baseline levels established preoperatively The patient's neurological status is consistent with or improved from baseline levels established preoperatively The patient demonstrates and/or reports adequate pain control throughout the perioperative period The patient received appropriate medication(s), safely administered during the perioperative period Finalized By: Priscilla High RN Document Signatures Signed By: Priscilla High RN 10/26/24 09:44 Normal [facility] Main OR Preoperative Recordo n 10-26-2024 Main OR Preoperative Record Main OR Preoperative Record Holding Area Document Type FT Summary Primary Physician: Marga Duckworth MD Finalized Date/Time: 10/26/24 07:12:27 Pt. Name: FARTUN SCHNEIDER D.O.B./Sex: 1955 Female Med Rec #: [id number] Physician: Sanaz ALEJANDRA DO Financial #: [id number] Pt. Type: I Room/Bed: [place] [address] Admit/Disch: 10/22/24 14:22:13 - Institution: Case Times Holding FT Pre-Care Text: Verifies consent for planned procedure, identifies individual values and wishes concerning care, includes family members in perioperative teaching Secures patient's records' belongings, and valuables, maintains patient's dignity and privacy, and maintains patient confidentiality Entry 1 In Holding 10/26/24 07:05:00 Outcomes Met? Yes Last Modified By: Samantha LEES, Jazmín Lehman 10/26/24 07:11:28 Post-Care Text: The patient participates in decisions affecting his or her perioperative plan of care The patient's right to privacy is maintained Surgery Checklist FT Entry 1 Patient Birthday, ID Band Procedure History and Physical, Identification: Check, Patient Verification: Surgical Consent, With Participation Patient NPO after Midnight: Yes Date/Time: 10/26/24 00:00:00 Personal Items: Cataract Lens Implant, Personal Items earrings, bilateral Jewelry Comment: knee replacement, left eye cataract lens implant Limitations: n/a Complaints of Pain: Yes Pain Comment: headache Operative Site n/a Marking: Marked By: n/a Availability Equipment Verified: Does Patient Smoke No Patient states Yes Comment - Adult inpatient 306 postop adult Supervision supervision available Case Cancelled in No Holding Area see comments below for reason Last Modified By: Jazmín Singh RN 10/26/24 07:12:25 General Comments: Pt was finished with colon prep at midnight, stool is clear liquid yellow, has been NPO since. /MDRN Finalized By: Jazmín Singh RN Document Signatures Signed By: Jazmín Singh RN 10/26/24 07:12 Normal [facility] Operative Reporton Operative Report Operative Report Patient: FARTUN SCHNEIDER Age: 69 years Sex: Female : 1955 Associated Diagnoses: None Author: Marga Duckworth MD Pre-Procedure Procedure Date 10/26/2024 08:59:00 . Procedure Type: Colonoscopy with biopsy. Procedure provider Performed by Marga Duckworth MD. Current history and physical Documented on chart. Aspiration of hip joint ([id number]) on 04/11/2023 at 67 Years. Aspiration of right hip ([id number]) on 02/13/2023 at 67 Years. Comments: 02/13/2023 9:49 CYNTHIA Hernández RN, Arlette Eugene d/t infection hip nailing using fluoroscopic guidance ([id number]) on 12/20/2022 at 67 Years. hemiarthroplasty of right hip ([id number]) on 11/25/2022 at 67 Years. Esophagogastroduodenoscopy ([id number]) on 05/09/2022 at 66 Years. Arthroscopy of shoulder ([id number]) on 08/16/2020 at 64 Years. Excision of mass of neck ([id number]) on 03/11/2019 at 63 Years. Comments: 03/11/2019 22:26 Jaja Jalloh RN REMOVAL OF LEFT NECK MASS Arthroplasty of finger ([id number]) on 03/10/2018 at 62 Years. Comments: 03/10/2018 16:38 CYNTHIA Rice RN, Roberta Drummond Right basilar thumb tendon interpositional arthroplasty with palmaris longus and 50% FCR graft, extensor tenodesis, splint application, mini-fluoroscopy percutaneous pinning left hip on 10/03/2014 at 58 Years. left total knee replacement with hardware removal on 12/07/2013 at 58 Years. right total knee arthroplasty on 06/08/2013 at 57 Years. Right knee surgery on 12/14/2012 at 57 Years. left knee ORIF. gallbladder removed. [facility] - Total abdominal hysterectomy and bilateral salpingo-oophorectomy ([id number]). 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 Comments: 06/20/2015 10:56 EDT - Judie PT, Sejal benign 09/09/2012 12:44 KVNG Han RN, Cony left jaw surgery. ESWL of kidney ([id number]). BASILAR ARTHROPLASTY OF THUMB. Comments: 05/17/2013 8:38 CYNTHIA Hernández RN, Jacque LEFT Cyst - diagnostic aspiration ([id number]). Comments: 12/22/2018 23:58 KVNG Buck RN, Kady Jaime Left shoulder blade. Past Medical History Active Hypothyroidism ([id number]) HTN (hypertension) ([id number]) Resolved Arthritis (7434864): Resolved. Kidney Stones (484768280): Resolved on 10/30/2010 at 55 years. [facility] arthritis, thumb, degenerative ([id number]): Resolved on 09/09/2012 at 56 years. Comments: 09/09/2012 EDT 12:42 KVNG Han RN, BSN, Cony left Fibrocystic breast changes ([id number]): Resolved. Diverticulitis (211129158): Resolved. Irritable bowel syndrome (02363294): Resolved. Bridgett esophagitis (98980956): Resolved. UTI (urinary tract infection) (402148335): Resolved. Herpes zoster lesion (8639909): Resolved.. Family History Patient was adopted. Ulcerative colitis Sister Diabetes mellitus type 1 Sister Depression Sister . Procedure History Aspiration of hip joint ([id number]) on 04/11/2023 at 67 Years. Aspiration of right hip ([id number]) on 02/13/2023 at 67 Years. Comments: 02/13/2023 9:49 CYNTHIA Hernández RN, Arlette N d/t infection hip nailing using fluoroscopic guidance ([id number]) on 12/20/2022 at 67 Years. hemiarthroplasty of right hip ([id number]) on 11/25/2022 at 67 Years. Esophagogastroduodenoscopy ([id number]) on 05/09/2022 at 66 Years. Arthroscopy of shoulder ([id number]) on 08/16/2020 at 64 Years. Excision of mass of neck ([id number]) on 03/11/2019 at 63 Years. Comments: 03/11/2019 22:26 CYNTHIA Angulo RN, Jaja Myers REMOVAL OF LEFT NECK MASS Arthroplasty of finger ([id number]) on 03/10/2018 at 62 Years. Comments: 03/10/2018 16:38 CYNTHIA Rice RN, Roberta Drummond Right basilar thumb tendon interpositional arthroplasty with palmaris longus and 50% FCR graft, extensor tenodesis, splint application, mini-fluoroscopy percutaneous pinning left hip on 10/03/2014 at 58 Years. left total knee replacement with hardware removal on 12/07/2013 at 58 Years. right total knee arthroplasty on 06/08/2013 at 57 Years. Right knee surgery on 12/14/2012 at 57 Years. left knee ORIF. gallbladder removed. [facility] - Total abdominal hysterectomy and bilateral salpingo-oophorectomy ([id number]). 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 Comments: 06/20/2015 10:56 KVNG Dimas PT, Sejal benign 09/09/2012 12:44 Cony Howard RN jaw surgery. ESWL of kidney ([id number]). BASILAR ARTHROPLASTY OF THUMB. Comments: 05/17/2013 8:38 CYNTHIA Hernández RN, Jacque [facility] Cyst - diagnostic aspiration ([id number]). Comments: 12/22/2018 23:58 KVNG Buck RN, Kady Jaime Left shoulder blade. Colorectal neoplasm risk assessment Average risk. Informed Consent After discussing the rationale, risks and benefits, and alternatives to this procedure, the patient provided signed consent for the procedure. Pre-procedure diagnosis: Diagnostic: Colitis. Medications (Selected) Inpatient Medications Ordered Benadryl 25 mg Cap: 25 mg = 1 cap(s), Cap, Oral, q6hr PRN Itching, Routine, Start da (more content not included)... Normal [facility] Comment on above: Result Comment: Elec tronically Signed By: Marga Duckworth MD\.br\Date and Time Signed: 10/26/24 09:25 EDT Other Comment: Mahi wade Attachment - attachment storage system not supported [id number] Can be viewed in source system Missing Attachment - attachment storage system not supported [id number] Can be viewed in source system Missing Attachment - attachment storage system not supported [id number] Can be viewed in source system Missing Attachment - attachment storage system not supported [id number] Can be viewed in source system Missing Attachment - attachment storage system not supported [id number] Can be viewed in source system Missing Attachment - attachment storage system not supported [id number] Can be viewed in source system Missing Attachment - attachment storage system not supported [id number] Can be viewed in source system Missing Attachment - attachment storage system not supported [id number] Can be viewed in source system Missing Attachment - attachment storage system not supported [id number] Can be viewed in source system Missing Attachment - attachment storage system not supported [id number] Can be viewed in source system Missing Attachment - attachment storage system not supported [id number] Can be viewed in source system Missing Attachment - attachment storage system not supported [id number] Can be viewed in source system Operative Report Operative Report Patient: FARTUN SCHNEIDER Age: 69 years Sex: Female : 1955 Associated Diagnoses: None Author: Marga Duckworth MD Pre-Procedure Procedure Date 10/26/2024 08:40:00 . Procedure Type: Esophagogastroduodenoscopy with biopsy. Procedure provider Performed by Marga Duckworth MD. Current history and physical Documented on chart. Informed Consent After discussing the rationale, risks and benefits, and alternatives to this procedure, the patient provided signed consent for the procedure. Pre-procedure diagnosis: Diarrhea, abdominal pain. Medications (Selected) Inpatient Medications Ordered Benadryl 25 mg Cap: 25 mg = 1 cap(s), Cap, Oral, q6hr PRN Itching, Routine, Start date 10/22/24 21:01:00 EDT, 10/22/24 21:01:00 EDT Bentyl 10 mg Cap: 10 mg = 1 cap(s), Cap, Oral, QID, Routine, Start date 10/23/24 9:00:00 EDT, 10/22/24 23:26:00 EDT Dextrose 50% Soln-IV: 50 mL, Soln-IV, IV Push, q15min PRN Low blood sugar, Routine, Start date 10/22/24 21:01:00 EDT, Blood glucose < 70 mg/dL Insulin Lispro Moderate Dose (Usual) Sliding Scale: 0-12 Unit(s), Injection-Insulin, SubCutaneous, QIDACHS, NOW, Start date 10/22/24 21:18:00 EDT NS 1000 mL Soln-IV 1,000 mL: 1,000 mL, IV, 20 mL/hr, Routine, Start date 10/25/24 11:37:00 EDT, 50 hour(s), Total volume (mL): 1,000, 71 kg, SEND PATIENT TO ENDOSCOPY WITH IV INFUSING, 1.79, m2 Paxil 20 mg Tab: 60 mg = 3 tab(s), Tab, Oral, Daily, Routine, Start date 10/23/24 9:00:00 EDT Valium 5 mg Tab: 2.5 mg = 0.5 tab(s), Tab, Oral, TID, Routine, Start date 10/23/24 8:00:00 EDT, 10/22/24 23:26:00 EDT Wellbutrin SR 150 mg Tab-ER: 150 mg = 1 tab(s), Tab-ER, Oral, BID, NOW, Start date 10/22/24 23:25:00 EDT, 10/22/24 23:25:00 EDT Zofran 4 mg/2 mL Injection: 4 mg = 2 mL, Injection, IV Push, q6hr PRN Nausea, Routine, Start date 10/22/24 21:01:00 EDT, 10/22/24 21:01:00 EDT acetaminophen 325 mg Tab: 650 mg = 2 tab(s), Tab, Oral, q6hr PRN Pain, Routine, Start date 10/22/24 21:01:00 EDT, 10/22/24 21:01:00 EDT atorvastatin 40 mg Tab: 40 mg = 1 tab(s), Tab, Oral, Daily, Routine, Start date 10/23/24 9:00:00 EDT, 10/22/24 23:25:00 EDT carvedilol 12.5 mg Tab: 12.5 mg = 1 tab(s), Tab, Oral, BID, NOW, Start date 10/22/24 23:25:00 EDT, 10/22/24 23:25:00 EDT gabapentin 300 mg Cap: 900 mg = 3 cap(s), Cap, Oral, TID, NOW, Start date 10/22/24 23:27:00 EDT, 10/22/24 23:27:00 EDT glucagon recombinant 1 mg Inj: 1 mg = 1 EA, Injection, IntraMuscular, q15min PRN Low blood sugar, Routine, Start date 10/22/24 21:01:00 EDT, Blood glucose <70 mg/dL, 10/22/24 21:01:00 EDT glucose Oral gel: 15 gm = 32 mL, Gel, Oral, q15min PRN Low blood sugar, Routine, Start date 10/22/24 21:01:00 EDT, Blood glucose <70 mg/dL, 10/22/24 21:01:00 EDT hydrALAZINE 20 mg/mL Inj: 10 mg = 0.5 mL, Injection, IV Push, q6hr PRN Other (see comment), Routine, Start date 10/22/24 21:01:00 EDT, 10/22/24 21:01:00 EDT insulin glargine 100 units/mL SubQ Jane 10 mL: 10 unit(s) = 0.1 mL, Injection-Insulin, SubCutaneous, Bedtime, Routine, Start date 10/23/24 21:00:00 EDT levothyroxine 112 mcg (0.112 mg) Tab: 112 mcg = 1 tab(s), Tab, Oral, Daily, Routine, Start date 10/23/24 6:30:00 EDT, 10/22/24 23:27:00 EDT lisinopril 10 mg Tab: 10 mg = 1 tab(s), Tab, Oral, Daily, Routine, Start date 10/23/24 9:00:00 EDT, 10/22/24 23:27:00 EDT methylPREDNISolone 40 mg preservative-free injection (SOLU-MEDROL): 40 mg = 1 mL, Injection, IV Push, Daily for 3 dose(s), Stop date 10/28/24 8:59:00 EDT, NOW, Start date 10/25/24 16:58:00 EDT, 10/25/24 16:58:00 EDT oxyCODONE 5 mg Tab: 5 mg = 1 tab(s), Tab, Oral, q4hr PRN Pain for 5 day(s), Stop date 10/27/24 21:01:00 EDT, Routine, Start date 10/22/24 21:02:00 EDT, 10/22/24 21:02:00 EDT oxybutynin 5 mg ER Tab: 5 mg = 1 tab(s), Tab-ER, Oral, Daily, Routine, Start date 10/23/24 9:00:00 EDT, 10/22/24 23:28:00 EDT pantoprazole 40 mg IV Inj: 40 mg = 10 mL, Injection, IV Push, BID, Routine, Start date 10/23/24 9:00:00 EDT, mL/hr, Infuse over 2 minute(s) potassium chloride additive + premix generic diluent 100 mL: 20 mEq = 100 mL, Soln-IV, IV Piggyback, q2hr for 2 dose(s), Stop date 10/26/24 11:59:00 EDT, Routine, Start date 10/26/24 8:00:00 EDT, 50 mL/hr, Infuse over 2 hour(s) traZODONE 50 mg Tab: 100 mg = 2 tab(s), Tab, Oral, Once a day (at bedtime), NOW, Start date 10/22/24 23:28:00 EDT, 10/22/24 23:28:00 EDT Prescriptions Prescribed Assure Prism Multi Blood Glucose Monitoring System: Assure Prism Multi Blood Glucose Monitoring System, See Instructions, 1 kit(s), 2, To check blood glucose levels, [facility], Supply, 162.5, cm, 12/30/23 17:04:00 EDT, Height/Length Dosing, 79.1, kg, 12/30/23 17:04:00 EDT, Weight Dosing... Bentyl 10 mg Cap: 10 mg = 1 cap(s), Oral, QID, # 360 cap(s), Refills(s) 1, Pharmacy: [facility], 162, cm, 08/23/24 15:21:00 EDT, Height/Length Dosing, 73, kg, 08/23/24 15:21:00 EDT, Weight Dosing BuPROPion (Eqv-Wellbutrin SR) 150 mg/12 hours oral tablet, ext (more content not included)... Normal [facility] Comment on above: Result Comment: Elec tronically Signed By: Donita BANKS, Marga Moon\.br\Date and Time Signed: 10/26/24 08:42 EDT Other Comment: Mahi wade Attachment - attachment storage system not supported [id number] Can be viewed in source system Missing Attachment - attachment storage system not supported [id number] Can be viewed in source system Missing Attachment - attachment storage system not supported [id number] Can be viewed in source system Missing Attachment - attachment storage system not supported [id number] Can be viewed in source system Missing Attachment - attachment storage system not supported [id number] Can be viewed in source system Missing Attachment - attachment storage system not supported [id number] Can be viewed in source system Missing Attachment - attachment storage system not supported [id number] Can be viewed in source system Missing Attachment - attachment storage system not supported [id number] Can be viewed in source system Missing Attachment - attachment storage system not supported [id number] Can be viewed in source system Other Comment: Mahi wade Attachment - attachment storage system not supported [id number] Can be viewed in source systemMissing Attachment - attachment storage system not supported [id number] Can be viewed in source systemMissing Attachment - attachment storage system not supported [id number] Can be viewed in source systemMissing Attachment - attachment storage system not supported [id number] Can be viewed in source systemMissing Attachment - attachment storage system not supported [id number] Can be viewed in source systemMissing Attachment - attachment storage system not supported [id number] Can be viewed in source systemMissing Attachment - attachment storage system not supported [id number] Can be viewed in source systemMissing Attachment - attachment storage system not supported [id number] Can be viewed in source systemMissing Attachment - attachment storage system not supported [id number] Can be viewed in source system BMPon 10-25-2024 Anion gap [Moles/Vol] 9 mmol/L Normal 6-16 [facility] Comment on above: Performed By: #### 2 [id number] #### [facility] [address] [place] [address] BUN/Creat Ratio 8 No Units Low 10-20 [facility] Comment on above: Performed By: #### 2 [id number] #### [facility] [address] [place] [address] Calcium [Mass/Vol] 8.4 mg/dL Low 8.9-11.1 [facility] Comment on above: Performed By: #### 2 [id number] #### [facility] [address] [place] [address] Chloride [Moles/Vol] 113 mmol/L High 101-111 [facility] Comment on above: Performed By: #### 2 [id number] #### [facility] [address] [place] [address] CO2 [Moles/Vol] 26 mmol/L Normal 21-31 [facility] Comment on above: Performed By: #### 2 [id number] #### [facility] [address] [place] [address] Creatinine [Mass/Vol] 0.6 mg/dL Normal 0.5-1.3 [facility] Comment on above: Performed By: #### 2 [id number] #### [facility] [address] [place] [address] Glucose [Mass/Vol] 135 mg/dL Normal 55-199 [facility] Comment on above: Performed By: #### 2 [id number] #### [facility] [address] [place] [address] Potassium [Moles/Vol] 3.6 mmol/L Normal 3.5-5.3 [facility] Comment on above: Performed By: #### 2 [id number] #### [facility] [address] [place] [address] Sodium [Moles/Vol] 144 mmol/L Normal 135-145 [facility] Comment on above: Performed By: #### 2 [id number] #### [facility] [address] [facility] [place] [address] Urea nitrogen [Mass/Vol] 5 mg/dL Normal 5-21 [facility] Comment on above: Performed By: #### 2 [id number] #### [facility] [address] [place] [address] C Urineon 10-25-2024 Bacteria identified Cx Nom (U) Microbiology PROCEDURE: Urine Culture [R1] SOURCE: U CleanCatch BODY SITE: COLLECTED DATE/TIME: 10/23/2024 14:36 EDT RECEIVED DATE/TIME: 10/23/2024 17:09 EDT START DATE/TIME: 10/23/2024 17:09 EDT FREE TEXT SOURCE: DANISH JOSE A, DANISH NARANJO, Anu Brennan FINAL REPORTS Final Report [] Verified Date/Time: 10/25/2024 10:24 EDT 4,000 cfu/ml Escherichia coli ESBL 200 cfu/ml Mixed skin contaminants Notifed Loretta Woodruff CNP of ESBL 10/25/2024 10:24 CSS SUSCEPTIBILITY RESULTS LEGEND: S=Susceptible, N/R=Not Reported, Blank=Data not available, or drug not advisable or tested, I=Intermediate, ESBL=Extended spectrum beta-lactamase, R=Resistant, TFG=Thymidine-dependent strain, ALBA=Beta-lactamase positive, ITZEL=mcg/m;(mg/L), S*=Predicted susceptible interp, R*=Predicted resistant interp ECESBL Antibiotic ITZEL Dilutn ITZEL Interp Ampicillin >16 R* Ampicillin/ <=8/4 S Sulbactam Cefazolin >16 R* Cefepime >16 R* Ceftazidime/ <=8 S Avibactam Ceftriaxone >2 ESBL Cefuroxime >16 R* Ciprofloxacin >2 R Ertapenem <=0.5 S Gentamicin <=2 S Levofloxacin >4 R Meropenem <=1 S Nitrofurantoin <=32 S Piperacillin/ <=8 S Tazobactam Tetracycline <=4 S Tobramycin <=2 S Trimethoprim/ <=2/38 S Sulfa Performing Locations R1: This test was performed at: [facility], [address] [place] [address], [phone] , , Normal [facility] Comment on above: Performed By: #### 2 [id number] #### [facility] [address] [place] [id number] CBC w/Indiceson 10-25-2024 Erythrocyte distribution width (RBC) [Ratio] 13.3 % Normal 10.9-14.2 [facility] Comment on above: Performed By: #### 2 [id number] #### [facility] [address] [place] [address] Hematocrit (Bld) [Volume fraction] 31.0 % Low 34.0-46.0 [facility] Comment on above: Performed By: #### 2 [id number] #### [facility] [address] [place] [id number] Hemoglobin (Bld) [Mass/Vol] 10.6 g/dL Low 12.0-16.0 [facility] Comment on above: Performed By: #### 2 [id number] #### [facility] [address] [place] [address] MCH (RBC) [Entitic mass] 31.7 pg Normal 27.0-34.0 [facility] Comment on above: Performed By: #### 2 [id number] #### [facility] [address] [place] [address] MCHC (RBC) [Mass/Vol] 34.3 g/dL Normal 31.4-36.0 [facility] Comment on above: Performed By: #### 2 [id number] #### [facility] [address] [place] [address] MCV (RBC) [Entitic vol] 92.6 fL Normal 80.0-100.0 [facility] Comment on above: Performed By: #### 2 [id number] #### [facility] [address] [place] [address] Platelet 139.0 E9/L Low 150.0-500. 0 [facility] Comment on above: Performed By: #### 2 [id number] #### [facility] [address] [place] [address] Platelet mean volume (Bld) [Entitic vol] 8.4 fL Normal 6.4-10.8 [facility] Comment on above: Performed By: #### 2 [id number] #### [facility] [address] [place] [address] RBC 3.4 E12/L Low 4.3-5.9 [facility] Comment on above: Performed By: #### 2 [id number] #### [facility] [address] [place] [address] RBC morphology finding Nom (Bld) NORMAL Invalid Interpretation Code [facility] Comment on above: Performed By: #### 2 [id number] #### [facility] [address] [place] [address] WBC 5.8 E9/L Normal 4.0-11.0 [facility] Comment on above: Performed By: #### 2 [id number] #### [facility] [address] [place] [address] Capillary Glucose POCon 09-29 Glucose [Mass/Vol] 158 mg/dL High 55-99 [facility] Comment on above: Result Comment: Fausto rubi RNSERGIO Performed By: #### 2 [id number] #### [facility] [address] [place] [address] Glucose [Mass/Vol] 99 mg/dL Normal 55-99 [facility] Comment on above: Result Comment: Fausto CHAUDHARY Performed By: #### 2 [id number] #### [facility] [address] [place] [address] Glucose [Mass/Vol] 171 mg/dL High 55-99 [facility] Comment on above: Result Comment: Fausto CHAUDHARY Performed By: #### 2 [id number] #### [facility] [address] [place] [address] Glucose [Mass/Vol] 127 mg/dL High 55-99 [facility] Comment on above: Result Comment: Fausto CHAUDHARY Performed By: #### 2 [id number] #### [facility] [address] [place] [address] Glucose [Mass/Vol] 121 mg/dL High 55-99 [facility] Comment on above: Result Comment: Fausto CHAUDHARY Performed By: #### 2 [id number] #### [facility] [address] [place] [address] Coding Queryon 10-25-2024 Coding Query Coding Query From: Lorelei Weir RN To: Anu MANZANO; Sent: 10/25/2024 12:47:06 EDT ! Subject: Coding Query Due Date/Time: 10/26/2024 12:47:00 EDT Caller Name: FARTUN SCHNEIDER; Caller Number: [place] , M Documentation in the medical record indicates this patient has been admitted with or diagnosed as having: UTI The following is also documented in the medical record: 10/25 Progress note-3. Abnormal urinalysis UA abnormal. Final urine culture positive for Ecoli ESBL 4000 cfus Discontinue IV Ceftriaxone --does not tx Will hold off on antibiotics at this time as pt asymptomatic and voiding w/o any issues. Patient positive for acute UTI awaiting urine culture results Based on your medical judgment, can you please clarify if the diagnosis is: [___]Ruled in [___]Ruled out [___]Other: In responding to this request, please exercise your independent professional judgement. The fact that a question is asked does not imply that any particular answer is desired or expected. Thank you![email or web address] [phone] Normal [facility] Enteric Panel by PCRon 10-25 Campylobacter group Not detected Normal [facility] Comment on above: Result Comment: Test ing was performed utilizing reverse balance assembler (RT), polymerase chain reaction (PCR), and array hybridization to detect specific gastrointestinal microbial nucleic acid gene sequences associated with the following pathogenic bacteria and viruses:Campylobacter Group (composed of C. coli, C. jejuni, and C. erika), Salmonella species, Shigella species (including S. dysenteriae, S. boydii, S. sonnei and S. flexneri), Vibrio Group (composed of V. cholera and V. parahaemolyticus), Yersinia enterocolitica, Norovirus GI/GII, and Rotavirus A. In addition, EPdetects Shiga toxin 1 gene and Shiga toxin 2 gene virulence markers. Shiga toxin producing E. coli (STEC) typically harbor one or both genes that encode for Shiga toxins 1 and 2. Campylobacter group, Salmonella species, Shigella species, Vibrio group, Rotavirus A, Shiga Toxin 1, Shiga Toxin 2, Norovirus GI/GII, and Yersinia enterocolitica were tested by Verigene nulcleic acid test. Performed By: #### 1 [id number] #### [facility] [address] [place] [address] Enteric Panel Intrl QC Pass [facility] Comment on above: Result Comment: Test ing was performed utilizing reverse balance assembler (RT), polymerase chain reaction (PCR), and array hybridization to detect specific gastrointestinal microbial nucleic acid gene sequences associated with the following pathogenic bacteria and viruses:Campylobacter Group (composed of C. coli, C. jejuni, and C. erika), Salmonella species, Shigella species (including S. dysenteriae, S. boydii, S. sonnei and S. flexneri), Vibrio Group (composed of V. cholera and V. parahaemolyticus), Yersinia enterocolitica, Norovirus GI/GII, and Rotavirus A. In addition, EPdetects Shiga toxin 1 gene and Shiga toxin 2 gene virulence markers. Shiga toxin producing E. coli (STEC) typically harbor one or both genes that encode for Shiga toxins 1 and 2. Performed By: #### 1 [id number] #### [facility] [address] [place] [address] Norovirus GI/GII Not detected Normal [facility] Comment on above: Performed By: #### 1 [id number] #### [facility] [address] [place] [address] Rotavirus A Not detected Normal [facility] Comment on above: Performed By: #### 1 [id number] #### [facility] [address] [place] [address] Salmonella species Not detected Normal [facility] Comment on above: Result Comment: This test result should be correlated with clinical presentations and medical history by a healthcare provider to determine its clinical significance. Performed By: #### 1 [id number] #### [facility] [address] [place] [address] Shiga Tox Interp Negative Normal [facility] Comment on above: Performed By: #### 1 [id number] #### [facility] [address] [place] [address] Shiga Toxin 1 Not detected Normal [facility] Comment on above: Performed By: #### 1 [id number] #### [facility] [address] [place] [address] Shiga Toxin 2 Not detected Normal [facility] Comment on above: Performed By: #### 1 [id number] #### [facility] [address] [place] [address] Shigella species Not detected Normal [facility] Comment on above: Performed By: #### 1 [id number] #### [facility] [address] [place] [address] Vibrio Group Not detected Normal [facility] Comment on above: Performed By: #### 1 [id number] #### [facility] [address] [place] [address] Yersinia enterocolitica Not detected Normal [facility] Comment on above: Performed By: #### 1 [id number] #### [facility] [address] [place] [address] Inpatient Clinical Summaryon 10-25-2024 Inpatient Clinical Summary Inpatient Clinical Summary [address] [address] Clinical Summary Person Information: Name: FARTUN SCHNEIDER Age: 69 Years : 1955 Sex: Female PCP: Marcelo Call DO Marital Status: Single Race: White Ethnicity: Non- or Language: Luxembourger Visit Id: Visit Reason: Hypotension; Diarrhea; Abdominal pain; fall Speciality: Acuity: Enc Type: Inpatient Med Service: Medical Arrival: 10/22/2024 14:22:13 Discharge: Dispo Type: Admitted as IP to this Hosp Address: [address] [place] [address] [place] [id number] Provider Notes: Diagnosis: 1:GI bleed; 2:Acute colitis; 3:Abnormal urinalysis; 4:Acute hypotension; 5:Hyperlipidemia; 6:HTN (hypertension); 7:Hypothyroidism; 8:DM2 (diabetes mellitus, type 2); 10:Chronic prescription opiate use; 11:Bipolar disorder; 12:On deep vein thrombosis (DVT) prophylaxis Problems Active Chronic prescription opiate use DM2 (diabetes mellitus, type 2) Bipolar disorder [facility] current use of insulin Type 2 diabetes mellitus with hyperlipidemia Hyperlipidemia Insomnia 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) At risk for falls Overactive bladder Closed subcapital fracture of right femur with routine healing, subsequent encounter Iron deficiency anemia Diabetes mellitus with polyneuropathy Personal history of colonic polyps Dysphagia Lower back pain Smoker HTN (hypertension) Chronic pain Chronic GERD Hypothyroidism Obesity Smoking Status: Never Smoker Functional Status: Sensory Deficits: History of Falls: Mobility Assistance Prior to Admission: ADLs: Minimal assistance Current Level of Assistance for Self-Care/Mobility: Cognitive Status: Oriented x 3 Allergies penicillin (Anaphylaxis) Celebrex (Rash) Neosporin (Rash) goldbond cream (Rash) Adhesive Bandage (Rash) amoxicillin (Anaphylaxis) Noxema Triple Clean (Rash) sulfamethoxazole (unknown) Measurements: Height: 162.56 cm Weight: 77.1 kg Blood Pressure: 159 mmHg / 84 mmHg BMI: 29.21 kg/m2 Procedures No Procedures Performed or Documented Immunizations No Immunizations Documented This Visit Final Med List: acetaminophen (acetaminophen 325 mg Tab) 1 Tablets By Mouth 3 times a day as needed for fever. Take 1 tablet by mouth three times a day as needed. Refills: 1. acetaminophen (Tylenol 325 mg Tab) 1 Tablets By Mouth 3 times a day. 1 tablet by mouth three times a day as needed. acetaminophen-oxycodone (acetaminophen-oxycodone 325 mg-5 mg Tab) 1 Tablets By Mouth 3 times a day as needed for pain. May take between 8am and 8pm 30 day supply. Refills: 0. ascorbic acid (ascorbic acid 500 mg Tab) 1 Tablets By Mouth 2 times a day. Refills: 4. atorvastatin (atorvastatin 40 mg Tab) 1 Tablets By Mouth every day. Refills: 4. bisacodyl (bisacodyl 5 mg Oral EC Tab) 2 Tablets By Mouth Once as needed Constipation. buPROPion (BuPROPion (Eqv-Wellbutrin SR) 150 mg/12 hours oral tablet, extended release) 1 Tablets By Mouth 2 times a day. Refills: 4. carvedilol (carvedilol 12.5 mg Tab) 1 Tablets By Mouth 2 times a day. Refills: 4. celecoxib (CeleBREX 100 mg Cap) 1 Capsules By Mouth 2 times a day as needed Pain. dextromethorphan-guaifenesi n (Tussin DM 10 mg-100 mg/5 mL oral liquid) 5 Milliliter By Mouth every 6 hours as needed for cough. diazepam (diazepam 2 mg Tab) 1 Tablets By Mouth 3 times a day. For 30 day supply. Refills: 0. dicyclomine (Bentyl 10 mg Cap) 1 Capsules By Mouth 4 times a day. Refills: 1. dulaglutide (dulaglutide 0.75 mg/0.5 mL subcutaneous solution) 0.75 Milligram Subcutaneous every week. Refills: 11. ferrous sulfate (ferrous sulfate 325 mg Tab) 1 Tablets By Mouth 2 times a day. Refills: 11. gabapentin (gabapentin 300 mg Cap) 1 Capsules By Mouth 3 times a day. Refills: 1. gabapentin (gabapentin 600 mg Tab) 1 Tablets By Mouth 3 times a day. Refills: 2. insulin aspart (insulin aspart 100 units/mL injectable solution) insulin degludec (Tresiba 100 units/mL subcutaneous solution) 10 Units Subcutaneous every day. insulin glargine (Lantus 100 units/mL Injection-Insulin) 15 Units Subcutaneous once a day (at bedtime). Refills: 5. levothyroxine (levothyroxine 112 mcg (0.112 mg) Tab) 1 Tablets By Mouth every day. Refills: 11. liraglutide (Saxenda 18 mg/3 mL subcutaneous solution) 1.2 Milligram Subcutaneous every day. Replacing Trulicity due to backorder. Refills: 2. lisinopril (lisinopril 10 mg Tab) 1 Tablets By Mouth every day. Refills: 4. Misc Prescription (Assure Prism Multi Blood Glucose Monitoring System) To check blood glucose levels. Refills: 2. 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 Refills: 0. Misc Prescription (sensors) francheska 2 sensors change q 14 days E11.42. Refills: 4. nystatin topical (nystatin Top 100,000 units/g Pwdr) 1 Application Topical (more content not included)... Normal [facility] Inpatient Patient Summaryon 10-25-2024 Inpatient Patient Summary Inpatient Patient Summary [place] [address] Patient Discharge Instructions PERSON INFORMATION Name: FARTUN SCHNEIDER Date of : 1955 Current Date: 10/25/2024 11:00:44 PHYSICIANS Admitting Physician: Sanaz ALEJANDRA DO Primary Care Physician: Marcelo Call DO PCP Comment: Discharge Diagnosis: 1:GI bleed; 2:Acute colitis; 3:Abnormal urinalysis; 4:Acute hypotension; 5:Hyperlipidemia; 6:HTN (hypertension); 7:Hypothyroidism; 8:DM2 (diabetes mellitus, type 2); 10:Chronic prescription opiate use; 11:Bipolar disorder; 12:On deep vein thrombosis (DVT) prophylaxis Condition at Discharge: FARTUN SCHNEIDER has been given the following list of follow-up instructions, prescriptions, and patient education materials: PATIENT FOLLOW-UP INFORMATION Diet: Discharge Activity: Discharge Restrictions: Wound Care Instructions: Remove Your Dressing In Days Call Your Doctor For: IF UNABLE TO CONTACT YOUR PHYSICIAN AND YOU FEEL IT IS AN EMERGENCY, GO TO THE NEAREST EMERGENCY ROOM OR CALL 911 Home Treatment: Devices/Equipment: Walker Special Services: Additional Instructions: Primary Care Physician to provide the following pending test results: Follow up: In the event that this physician does not participate in your insurance network, please consult with your insurance company to find a nearby participating provider. Type Location Start Finish State FM Open [facility] 11/04/2024 9:20 AM 11/04/2024 9:40 AM Confirmed Medicare Wellness Subsequent [facility] 11/11/2024 11:00 AM 11/11/2024 12:00 PM Confirmed Comment: IZACH NANCY A, have received the attached patient education materials/instructions and have verbalized understanding: Patient Signature Date Clinican/Nurse Signature Date HERE ARE THE MEDICATION CHANGES THAT OCCURRED DURING YOUR HOSPITAL STAY Medications to Continue with No Changes Other Medications acetaminophen (acetaminophen 325 mg Tab) 1 Tablets By Mouth 3 times a day as needed for fever. Take 1 tablet by mouth three times a day as needed. Refills: 1. Last Dose: Ne xt Dose: acetaminophen (Tylenol 325 mg Tab) 1 Tablets By Mouth 3 times a day. 1 tablet by mouth three times a day as needed. Last Dose: Ne xt Dose: acetaminophen-oxycodone (acetaminophen-oxycodone 325 mg-5 mg Tab) 1 Tablets By Mouth 3 times a day as needed for pain. May take between 8am and 8pm 30 day supply. Refills: 0. Last Dose: Ne xt Dose: ascorbic acid (ascorbic acid 500 mg Tab) 1 Tablets By Mouth 2 times a day. Refills: 4. Last Dose: Ne xt Dose: atorvastatin (atorvastatin 40 mg Tab) 1 Tablets By Mouth every day. Refills: 4. Last Dose: Ne xt Dose: bisacodyl (bisacodyl 5 mg Oral EC Tab) 2 Tablets By Mouth Once as needed Constipation. Last Dose: Ne xt Dose: buPROPion (BuPROPion (Eqv-Wellbutrin SR) 150 mg/12 hours oral tablet, extended release) 1 Tablets By Mouth 2 times a day. Refills: 4. Last Dose: Ne xt Dose: carvedilol (carvedilol 12.5 mg Tab) 1 Tablets By Mouth 2 times a day. Refills: 4. Last Dose: Ne xt Dose: celecoxib (CeleBREX 100 mg Cap) 1 Capsules By Mouth 2 times a day as needed Pain. Last Dose: Ne xt Dose: dextromethorphan-guaifenesi n (Tussin DM 10 mg-100 mg/5 mL oral liquid) 5 Milliliter By Mouth every 6 hours as needed for cough. Last Dose: Ne xt Dose: diazepam (diazepam 2 mg Tab) 1 Tablets By Mouth 3 times a day. For 30 day supply. Refills: 0. Last Dose: Ne xt Dose: dicyclomine (Bentyl 10 mg Cap) 1 Capsules By Mouth 4 times a day. Refills: 1. Last Dose: Ne xt Dose: dulaglutide (dulaglutide 0.75 mg/0.5 mL subcutaneous solution) 0.75 Milligram Subcutaneous every week. Refills: 11. Last Dose: Ne xt Dose: ferrous sulfate (ferrous sulfate 325 mg Tab) 1 Tablets By Mouth 2 times a day. Refills: 11. Last Dose: Ne xt Dose: gabapentin (gabapentin 300 mg Cap) 1 Capsules By Mouth 3 times a day. Refills: 1. Last Dose: Ne xt Dose: gabapentin (gabapentin 600 mg Tab) 1 Tablets By Mouth 3 times a day. Refills: 2. Last Dose: Ne xt Dose: insulin aspart (insulin aspart 100 units/mL injectable solution) Last Dose: Ne xt Dose: (more content not included)... [facility] Interdisciplinary Note - Hardeep e Manageron 10-25-2024 Interdisciplinary Note - Information Security Interdisciplinary Note - Information Security GUALBERTO met with patient at bedside. Proper precautions maintained. Patient is from [facility] and has lived there for over a year. Patient states she is usually pretty independent with self care and an aide is with her when she bathes but able to complete task on own. Patient uses a walker to assist with ambulation and sister or facility assist with transportation needs. Sister will transport home at discharge. Patient denies any home going needs at this time and plan is fro patient to return to [place] when medically stable. IMM signed on 10/22 and copy at bedside. CM to follow for any additional needs. CM received call from patient's case specialist at [facility], [place] and verbal updates provided. [facility] Comment on above: Result Comment: Elec tronically Signed By: Tosha Walker I\.deng\Date and Time Signed: 10/25/24 14:04 EDT Interdisciplinary Note - Information Security Interdisciplinary Note - Information Security GUALBERTO met with patient at bedside. Proper precautions maintained. Patient is from [facility] and has lived there for over a year. Patient states she is usually pretty independent with self care and an aide is with her when she bathes but able to complete task on own. Patient uses a walker to assist with ambulation and sister or facility assist with transportation needs. Sister will transport home at discharge. Patient denies any home going needs at this time and plan is fro patient to return to [place] when medically stable. IMM signed on 10/22 and copy at bedside. CM to follow for any additional needs. Normal [facility] Comment on above: Result Comment: Elec tronically Signed By: Tosha Walker\Date and Time Signed: 10/25/24 11:46 EDT Patient Education - Texton 0 10-25-2024 Patient Education - Text Patient Education - Text Normal [facility] eGFRon 10-25-2024 eGFR 96 mL/min/1.73 m2 Normal >=59 [facility] Comment on above: Performed By: #### 1 [id number] #### [facility] [address] [place] [address] BMPon 10-24-2024 Anion gap [Moles/Vol] 7 mmol/L Normal 6-16 [facility] Comment on above: Performed By: #### 2 [id number] #### [facility] [address] [place] [address] BUN/Creat Ratio 8 No Units Low 10-20 [facility] Comment on above: Performed By: #### 2 [id number] #### [facility] [address] [place] [address] Calcium [Mass/Vol] 8.1 mg/dL Low 8.9-11.1 [facility] Comment on above: Performed By: #### 2 [id number] #### [facility] [address] [place] [address] Chloride [Moles/Vol] 115 mmol/L High 101-111 [facility] Comment on above: Performed By: #### 2 [id number] #### [facility] [address] [place] [address] CO2 [Moles/Vol] 25 mmol/L Normal 21-31 [facility] Comment on above: Performed By: #### 2 [id number] #### [facility] [address] [place] [address] Creatinine [Mass/Vol] 0.6 mg/dL Normal 0.5-1.3 [facility] Comment on above: Performed By: #### 2 [id number] #### [facility] [address] [place] [address] Glucose [Mass/Vol] 112 mg/dL Normal 55-199 [facility] Comment on above: Performed By: #### 2 [id number] #### [facility] [address] [place] [address] Potassium [Moles/Vol] 3.5 mmol/L Normal 3.5-5.3 [facility] Comment on above: Performed By: #### 2 [id number] #### [facility] [address] [place] [address] Sodium [Moles/Vol] 143 mmol/L Normal 135-145 [facility] Comment on above: Performed By: #### 2 [id number] #### [facility] [address] [place] [address] Urea nitrogen [Mass/Vol] 5 mg/dL Normal 5-21 [facility] Comment on above: Performed By: #### 2 [id number] #### [facility] [address] [place] [address] CBC w/ Auto Diffon 5 Basophil Absolute 0.0 E9/L Normal 0.0-0.2 [facility] Comment on above: Performed By: #### 2 [id number] #### [facility] [address] [place] [address] Basophils/100 WBC (Bld) 0.2 % Normal 0.0-2.0 [facility] Comment on above: Performed By: #### 2 [id number] #### [facility] [address] [place] [address] Eos Absolute 0.2 E9/L Normal 0.0-0.5 [facility] Comment on above: Performed By: #### 2 [id number] #### [facility] [address] [place] [address] Eosinophils/100 WBC (Bld) 3.7 % Normal 0.0-8.0 [facility] Comment on above: Performed By: #### 2 [id number] #### [facility] [address] [place] [address] Erythrocyte distribution width (RBC) [Ratio] 13.4 % Normal 10.9-14.2 [facility] Comment on above: Performed By: #### 2 [id number] #### [facility] [address] [place] [address] Hematocrit (Bld) [Volume fraction] 29.1 % Low 34.0-46.0 [facility] Comment on above: Performed By: #### 2 [id number] #### [facility] [address] [place] [address] Hemoglobin (Bld) [Mass/Vol] 10.1 g/dL Low 12.0-16.0 [facility] Comment on above: Performed By: #### 2 [id number] #### [facility] [address] [place] [address] Lymph Absolute 1.2 E9/L Normal 1.0-4.0 [facility] Comment on above: Performed By: #### 2 [id number] #### [facility] [address] [place] [address] Lymphocytes/100 WBC (Bld) 21.6 % Normal 14.0-50.0 [facility] Comment on above: Performed By: #### 2 [id number] #### [facility] [address] [place] [address] MCH (RBC) [Entitic mass] 32.3 pg Normal 27.0-34.0 [facility] Comment on above: Performed By: #### 2 [id number] #### [facility] [address] [place] [address] MCHC (RBC) [Mass/Vol] 34.7 g/dL Normal 31.4-36.0 [facility] Comment on above: Performed By: #### 2 [id number] #### [facility] [address] [place] [address] MCV (RBC) [Entitic vol] 93.1 fL Normal 80.0-100.0 [facility] Comment on above: Performed By: #### 2 [id number] #### [facility] [address] [place] [address] [place] Absolute 0.8 E9/L Normal 0.2-1.0 [facility] Comment on above: Performed By: #### 2 [id number] #### [facility] [address] [place] [address] Monocytes/100 WBC (Bld) 13.8 % Normal 4.0-14.0 [facility] Comment on above: Performed By: #### 2 [id number] #### [facility] [address] [place] [address] Neutro Absolute 3.3 E9/L Normal 2.0-7.5 [facility] Comment on above: Performed By: #### 2 [id number] #### [facility] [address] [place] [address] Neutro Auto 60.7 % Normal 36.0-75.0 [facility] Comment on above: Performed By: #### 2 [id number] #### [facility] [address] [place] [address] Platelet 117.0 E9/L Low 150.0-500. 0 [facility] Comment on above: Performed By: #### 2 [id number] #### [facility] [address] [place] [address] Platelet mean volume (Bld) [Entitic vol] 8.5 fL Normal 6.4-10.8 [facility] Comment on above: Performed By: #### 2 [id number] #### [facility] [address] [place] [address] RBC 3.1 E12/L Low 4.3-5.9 [facility] Comment on above: Performed By: #### 2 [id number] #### [facility] [address] [place] [address] WBC 5.5 E9/L Normal 4.0-11.0 [facility] Comment on above: Performed By: #### 2 [id number] #### [facility] [address] [place] [address] CDiff PCRon 10-24-2024 Cdiff Specimen Acceptable Unacceptable Normal [facility] Comment on above: Performed By: #### 3 [id number] #### [facility] [address] [place] [address] Order Cancelled YES Normal [facility] Comment on above: Performed By: #### 3 [id number] #### [facility] [address] [place] [address] Capillary Glucose POCon 09-29 Glucose [Mass/Vol] 124 mg/dL High 55-99 [facility] Comment on above: Result Comment: Fausto rubi RN/ Performed By: #### 2 [id number] #### [facility] [address] [place] [address] Glucose [Mass/Vol] 165 mg/dL High 55-99 [facility] Comment on above: Result Comment: Fausto CHAUDHARY Performed By: #### 2 [id number] #### [facility] [address] [place] [address] Glucose [Mass/Vol] 140 mg/dL High 55-99 [facility] Comment on above: Result Comment: Fausto CHAUDHARY Performed By: #### 2 [id number] #### [facility] [address] [place] [address] Glucose [Mass/Vol] 103 mg/dL High 55-99 [facility] Comment on above: Result Comment: Fausto CHAUDHARY Performed By: #### 2 [id number] #### [facility] [address] [place] [address] UA with Cult Rflxon 10-25-19 25 UA Spec Desc Catheter Normal [facility] Comment on above: Result Comment: Exte rnal cath Test results were corrected for specimen description Performed By: #### 4 [id number] #### [facility] [address] [place] [address] eGFRon 10-24-2024 eGFR 96 mL/min/1.73 m2 Normal >=59 [facility] Comment on above: Performed By: #### 1 [id number] #### [facility] [address] [place] [address] CBC w/Indiceson 10-23-2024 Erythrocyte distribution width (RBC) [Ratio] 13.4 % Normal 10.9-14.2 [facility] Comment on above: Performed By: #### 2 [id number] #### [facility] [address] [place] [address] Hematocrit (Bld) [Volume fraction] 31.9 % Low 34.0-46.0 [facility] Comment on above: Performed By: #### 2 [id number] #### [facility] [address] [place] [address] Hemoglobin (Bld) [Mass/Vol] 10.8 g/dL Low 12.0-16.0 [facility] Comment on above: Performed By: #### 2 [id number] #### [facility] [address] [place] [address] MCH (RBC) [Entitic mass] 31.3 pg Normal 27.0-34.0 [facility] Comment on above: Performed By: #### 2 [id number] #### [facility] [address] [place] [address] MCHC (RBC) [Mass/Vol] 33.8 g/dL Normal 31.4-36.0 [facility] Comment on above: Performed By: #### 2 [id number] #### [facility] [address] [place] [address] MCV (RBC) [Entitic vol] 92.6 fL Normal 80.0-100.0 [facility] Comment on above: Performed By: #### 2 [id number] #### [facility] [address] [place] [address] Platelet 142.0 E9/L Low 150.0-500. 0 [facility] Comment on above: Performed By: #### 2 [id number] #### [facility] [address] [place] [address] Platelet mean volume (Bld) [Entitic vol] 8.5 fL Normal 6.4-10.8 [facility] Comment on above: Performed By: #### 2 [id number] #### [facility] [address] [place] [address] RBC 3.4 E12/L Low 4.3-5.9 [facility] Comment on above: Performed By: #### 2 [id number] #### [facility] [address] [place] [address] RBC morphology finding Nom (Bld) NORMAL Invalid Interpretation Code [facility] Comment on above: Performed By: #### 2 [id number] #### [facility] [address] [place] [address] WBC 9.3 E9/L Normal 4.0-11.0 [facility] Comment on above: Performed By: #### 2 [id number] #### [facility] [address] [place] [address] CTA Abdomen and Pelvison CTA Abdomen and Pelvis Exam Date/Time: 10/22/2024 17:51 EDT Reason for Exam: GI bleed;Other (please specify) Report IMPRESSION: Diffuse colitis, most extensively involving the left colon. Findings concerning for small amount of active hemorrhage involving the rectal region near the anus. Additional areas of hyperdensity involving the colon as discussed. Could correlate with follow-up colonoscopy as clinically indicated. No associated pneumatosis or pneumoperitoneum. HISTORY: GI bleed. Abdominal pain. Diarrhea. TECHNIQUE: CTA of the abdomen and pelvis was performed using standard technique with and without intravenous contrast, scanning from just above the dome of the diaphragm to the symphysis pubis. Including noncontrast phase, arterial phase, and venous phase. Including dedicated 3-D MIP and/or MPR reconstructions, and volume reconstruction. Unless otherwise stated, incidental findings identified in this report do not require routine follow-up imaging. All CT scans at this facility use dose modulation, iterative reconstruction, and/or weight based dosing when appropriate to reduce radiation dose to as low as reasonably achievable. COMPARISON: CT 09/04/2022. RESULT: Vasculature: Mild to moderate calcified and noncalcified atherosclerotic disease involving the abdominal aorta, without evidence for aortic aneurysm or acute aortic syndrome. Mild narrowing at the origin tortuosity of the celiac axis. SMA, JOSE, renal arteries, and iliac branch vessels appear grossly patent. Liver: No suspicious mass or lesion. Biliary: Cholecystectomy. Mild prominence of the biliary system is likely secondary to the prior cholecystectomy. Pancreas: No mass or duct dilation. Spleen: No mass or splenomegaly. Adrenals: No mass. Kidneys: No mass, calculus or hydronephrosis. Lobular contour. Report GI tract: Diffuse colonic wall thickening, essentially involving the entire colon, and most extensive involving the left colon. Areas of mucosal hyperenhancement and adjacent stranding. There is a small amount of layering hyperdensity within the cecum, which appears to be present on the noncontrast phase, likely ingested food debris. Additionally there are other areas of hyperdensity especially involving the transverse colon (series 14 image 85), with the colon underdistended in this location, with the hyperdensity probably confined to the wall. Additional focus of hyperdensity within the rectal region (series 14 image 153) near the anus, probably small amount of active hemorrhage. No dilated loops of small bowel. Possible areas of small bowel wall thickening versus underdistention. No pneumatosis. Lymph nodes: No abdominal or pelvic lymphadenopathy. Mesentery/Peritoneum/Retrop eritoneum: No ascites or mass. No pneumoperitoneum. Pelvis: No significant free fluid. Bladder distended, otherwise grossly unremarkable. Hysterectomy. Bones: No acute osseous findings. Degenerative changes. Underlying decreased bone mineral density. DISH. Postsurgical changes both hips. Soft tissues: Unremarkable. Lower thorax: Bibasilar opacity versus atelectasis versus motion artifact. Cardiomegaly. Tech Comments: GFR (mL/min/1/73m2) >60 Contrast: Isovue 370 Contrast amount in ml's: 100.00 Ordering Provider: Vinayak Cardoso FINAL REPORT Dictated: 10/23/2024 8:23 am Vincent Howard MD Signed (Electronic Signature): 10/23/2024 8:23 am Signed by: Vincnet Howard MD Transcribed by: ARTIS Technologist: [employer] Normal [facility] Capillary Glucose POCon - Glucose [Mass/Vol] 124 mg/dL High 55-99 [facility] Comment on above: Performed By: #### 2 [id number] #### [facility] [address] [place] [address] Glucose [Mass/Vol] 128 mg/dL High 55-99 [facility] Comment on above: Result Comment: Fausto rubi RN/ Performed By: #### 2 [id number] #### [facility] [address] [place] [address] Glucose [Mass/Vol] 193 mg/dL High 55-99 [facility] Comment on above: Result Comment: Fausto rubi RN/MD Performed By: #### 2 [id number] #### [facility] [address] [place] [address] Glucose [Mass/Vol] 131 mg/dL High 55-99 [facility] Comment on above: Result Comment: Fausto rubi RN/ Performed By: #### 2 [id number] #### [facility] [address] [place] [address] EMS Documentationon 10-24-19 EMS Documentation Report Please click on link to see report Normal [facility] Comment on above: Result Comment: Miss ing Attachment - attachment exceeds size limitation [id number] Can be viewed in source system Hct & Hgbon 10-23-2024 Hematocrit (Bld) [Volume fraction] 29.6 % Low 34.0-46.0 [facility] Comment on above: Performed By: #### 1 [id number] #### [facility] [address] [place] [address] Hemoglobin (Bld) [Mass/Vol] 9.9 g/dL Low 12.0-16.0 [facility] Comment on above: Performed By: #### 1 [id number] #### [facility] [address] [place] [address] Hematocrit (Bld) [Volume fraction] 28.6 % Low 34.0-46.0 [facility] Comment on above: Performed By: #### 1 [id number] #### [facility] [address] [place] [address] Hemoglobin (Bld) [Mass/Vol] 9.6 g/dL Low 12.0-16.0 [facility] Comment on above: Performed By: #### 1 [id number] #### [facility] [address] [place] [address] UA with Cult Rflxon 10-24-19 25 Color (U) Light-Yellow Normal Yellow [facility] Comment on above: Result Comment: Micr oscopic readings are only performed on those samples that meet specific criteria set forth by [facility]. Performed By: #### 4 [id number] #### [facility] [address] [place] [address] Glucose (U) [Mass/Vol] Negative Normal Negative [facility] Comment on above: Performed By: #### 4 [id number] #### [facility] [address] [place] [address] Ketones Ql (U) Negative Normal Negative [facility] Comment on above: Performed By: #### 4 [id number] #### [facility] [address] [place] [address] UA Blood 1+ mg/dL Abnormal Negative [facility] Comment on above: Performed By: #### 4 [id number] #### [facility] [address] [place] [address] UA Clarity Clear Normal Clear [facility] Comment on above: Performed By: #### 4 [id number] #### [facility] [address] [place] [address] UA Leuk Est 250 Marc/uL Abnormal Negative [facility] Comment on above: Performed By: #### 4 [id number] #### [facility] [address] [place] [address] UA Mucous Trace Normal Negative [facility] Comment on above: Performed By: #### 4 [id number] #### [facility] [address] [place] [address] UA Nitrite Negative Normal Negative [facility] Comment on above: Performed By: #### 4 [id number] #### [facility] [address] [place] [address] UA pH 6.5 Invalid Interpretation Code 5.0-9.0 [facility] Comment on above: Performed By: #### 4 [id number] #### [facility] [address] [place] [address] UA Protein Negative Normal Negative [facility] Comment on above: Performed By: #### 4 [id number] #### [facility] [address] [place] [address] UA RBC 0-3 Normal 0-3 [facility] Comment on above: Performed By: #### 4 [id number] #### [facility] [address] [place] [address] UA Spec Grav 1.013 Invalid Interpretation Code 1.005-1.03 0 [facility] Comment on above: Performed By: #### 4 [id number] #### [facility] [address] [place] [address] UA Squam Epithelial 0-2 Invalid Interpretation Code [facility] Comment on above: Performed By: #### 4 [id number] #### [facility] [address] [place] [address] UA Urobilinogen Negative Normal Negative [facility] Comment on above: Performed By: #### 4 [id number] #### [facility] [address] [place] [address] UA WBC 31-75 Abnormal 0-5 [facility] Comment on above: Performed By: #### 4 [id number] #### [facility] [address] [place] [address] Urobilinogen (U) [Mass/Vol] Negative Normal Negative [facility] Comment on above: Performed By: #### 4 [id number] #### [facility] [address] [place] [address] UA Spec Desc Random Urine Normal [facility] Comment on above: Performed By: #### 4 [id number] #### [facility] [address] [place] [address] Color (U) Light-Yellow Normal Yellow [facility] Comment on above: Result Comment: Micr oscopic readings are only performed on those samples that meet specific criteria set forth by [facility]. Performed By: #### 4 [id number] #### [facility] [address] [place] [address] Glucose (U) [Mass/Vol] Negative Normal Negative [facility] Comment on above: Performed By: #### 4 [id number] #### [facility] [address] [place] [address] Ketones Ql (U) Negative Normal Negative [facility] Comment on above: Performed By: #### 4 [id number] #### [facility] [address] [place] [address] UA Blood 3+ mg/dL Abnormal Negative [facility] Comment on above: Performed By: #### 4 [id number] #### [facility] [address] [place] [address] UA Bacteria Trace Normal Trace [facility] Comment on above: Performed By: #### 4 [id number] #### [facility] [address] [place] [address] UA Clarity Clear Normal Clear [facility] Comment on above: Performed By: #### 4 [id number] #### [facility] [address] [place] [address] UA Leuk Est 500 Marc/uL Abnormal Negative [facility] Comment on above: Performed By: #### 4 [id number] #### [facility] [address] [place] [address] UA Mucous Negative Normal Negative [facility] Comment on above: Performed By: #### 4 [id number] #### [facility] [address] [place] [address] UA Nitrite Negative Normal Negative [facility] Comment on above: Performed By: #### 4 [id number] #### [facility] [address] [place] [address] UA pH 6.5 Invalid Interpretation Code 5.0-9.0 [facility] Comment on above: Performed By: #### 4 [id number] #### [facility] [address] [place] [address] UA Protein Trace Abnormal Negative [facility] Comment on above: Performed By: #### 4 [id number] #### [facility] [address] [place] [address] UA RBC 4-20 Abnormal 0-3 [facility] Comment on above: Performed By: #### 4 [id number] #### [facility] [address] [place] [address] UA Spec Grav 1.016 Invalid Interpretation Code 1.005-1.03 0 [facility] Comment on above: Performed By: #### 4 [id number] #### [facility] [address] [place] [address] UA Squam Epithelial 0-2 Invalid Interpretation Code [facility] Comment on above: Performed By: #### 4 [id number] #### [facility] [address] [place] [address] UA Urobilinogen Negative Normal Negative [facility] Comment on above: Performed By: #### 4 [id number] #### [facility] [address] [place] [address] UA WBC 31-75 Abnormal 0-5 [facility] Comment on above: Performed By: #### 4 [id number] #### [facility] [address] [place] [address] Urobilinogen (U) [Mass/Vol] Negative Normal Negative [facility] Comment on above: Performed By: #### 4 [id number] #### [facility] [address] [place] [address] UA Spec Desc Catheter Normal [facility] Comment on above: Result Comment: pure wick collection External Cath Performed By: #### 4 [id number] #### [facility] [address] [place] [address] ABO/Rhon 10-22-2024 ABO/Rh Positive Invalid Interpretation Code [facility] Comment on above: Performed By: #### 2 [id number] #### [facility] [address] [place] [address] ABO/Rh History Checkon 10-22 ABO/Rh History Check Verified Hx Blood Type Normal [facility] Comment on above: Performed By: #### 1 [id number] #### [facility] [address] [place] [address] ABSCon 10-22-2024 ABSC Gel Interp Negative Normal [facility] Comment on above: Performed By: #### 1 [id number] #### [facility] [address] [place] [address] BMPon 10-22-2024 Anion gap [Moles/Vol] 8 mmol/L Normal 6-16 [facility] Comment on above: Performed By: #### 2 [id number] #### [facility] [address] [place] [address] BUN/Creat Ratio 16 No Units Normal 10-20 [facility] Comment on above: Performed By: #### 2 [id number] #### [facility] [address] [place] [address] Calcium [Mass/Vol] 8.0 mg/dL Low 8.9-11.1 [facility] Comment on above: Performed By: #### 2 [id number] #### [facility] [address] [place] [address] Chloride [Moles/Vol] 108 mmol/L Normal 101-111 [facility] Comment on above: Performed By: #### 2 [id number] #### [facility] [address] [place] [address] CO2 [Moles/Vol] 26 mmol/L Normal 21-31 [facility] Comment on above: Performed By: #### 2 [id number] #### [facility] [address] [place] [address] Creatinine [Mass/Vol] 1.0 mg/dL Normal 0.5-1.3 [facility] Comment on above: Performed By: #### 2 [id number] #### [facility] [address] [place] [address] Glucose [Mass/Vol] 272 mg/dL High 55-199 [facility] Comment on above: Performed By: #### 2 [id number] #### [facility] [address] [place] [address] Potassium [Moles/Vol] 4.5 mmol/L Normal 3.5-5.3 [facility] Comment on above: Performed By: #### 2 [id number] #### [facility] [address] [place] [address] Sodium [Moles/Vol] 137 mmol/L Normal 135-145 [facility] Comment on above: Performed By: #### 2 [id number] #### [facility] [address] [place] [address] Urea nitrogen [Mass/Vol] 16 mg/dL Normal 5-21 [facility] Comment on above: Performed By: #### 2 [id number] #### [facility] [address] [place] [address] Blood Bank ID#on 10-22-2024 BBID# [id number] Invalid Interpretation Code [facility] Comment on above: Performed By: #### 1 [id number] #### [facility] [address] [place] [address] CBC w/ Auto Diffon 5 Basophil Absolute 0.0 E9/L Normal 0.0-0.2 [facility] Comment on above: Performed By: #### 2 [id number] #### [facility] [address] [place] [address] Basophils/100 WBC (Bld) 0.3 % Normal 0.0-2.0 [facility] Comment on above: Performed By: #### 2 [id number] #### [facility] [address] [place] [address] Eos Absolute 0.1 E9/L Normal 0.0-0.5 [facility] Comment on above: Performed By: #### 2 [id number] #### [facility] [address] [place] [address] Eosinophils/100 WBC (Bld) 1.0 % Normal 0.0-8.0 [facility] Comment on above: Performed By: #### 2 [id number] #### [facility] [address] [place] [address] Erythrocyte distribution width (RBC) [Ratio] 13.5 % Normal 10.9-14.2 [facility] Comment on above: Performed By: #### 2 [id number] #### [facility] [address] [place] [address] Hematocrit (Bld) [Volume fraction] 41.5 % Normal 34.0-46.0 [facility] Comment on above: Performed By: #### 2 [id number] #### [facility] [address] [place] [address] Hemoglobin (Bld) [Mass/Vol] 13.5 g/dL Normal 12.0-16.0 [facility] Comment on above: Performed By: #### 2 [id number] #### [facility] [address] [place] [address] Lymph Absolute 1.0 E9/L Normal 1.0-4.0 [facility] Comment on above: Performed By: #### 2 [id number] #### [facility] [address] [place] [address] Lymphocytes/100 WBC (Bld) 7.2 % Low 14.0-50.0 [facility] Comment on above: Performed By: #### 2 [id number] #### [facility] [address] [place] [address] MCH (RBC) [Entitic mass] 30.1 pg Normal 27.0-34.0 [facility] Comment on above: Performed By: #### 2 [id number] #### [facility] [address] [place] [address] MCHC (RBC) [Mass/Vol] 32.4 g/dL Normal 31.4-36.0 [facility] Comment on above: Performed By: #### 2 [id number] #### [facility] [address] [place] [address] MCV (RBC) [Entitic vol] 93.0 fL Normal 80.0-100.0 [facility] Comment on above: Performed By: #### 2 [id number] #### [facility] [address] [place] [address] [place] Absolute 0.9 E9/L Normal 0.2-1.0 [facility] Comment on above: Performed By: #### 2 [id number] #### [facility] [address] [place] [address] Monocytes/100 WBC (Bld) 6.0 % Normal 4.0-14.0 [facility] Comment on above: Performed By: #### 2 [id number] #### [facility] [address] [place] [address] Neutro Absolute 12.4 E9/L High 2.0-7.5 [facility] Comment on above: Performed By: #### 2 [id number] #### [facility] [address] [place] [address] Neutro Auto 85.5 % High 36.0-75.0 [facility] Comment on above: Performed By: #### 2 [id number] #### [facility] [address] [place] [address] Platelet 241.0 E9/L Normal 150.0-500. 0 [facility] Comment on above: Performed By: #### 2 [id number] #### [facility] [address] [place] [address] Platelet mean volume (Bld) [Entitic vol] 8.7 fL Normal 6.4-10.8 [facility] Comment on above: Performed By: #### 2 [id number] #### [facility] [address] [place] [address] RBC 4.5 E12/L Normal 4.3-5.9 [facility] Comment on above: Performed By: #### 2 [id number] #### [facility] [address] [place] [address] WBC 14.4 E9/L High 4.0-11.0 [facility] Comment on above: Performed By: #### 2 [id number] #### [facility] [address] [place] [address] Capillary Glucose POCon 09-29 Glucose [Mass/Vol] 173 mg/dL High 55-99 [facility] Comment on above: Result Comment: Repe at Test Performed By: #### 2 [id number] #### [facility] [address] [place] [address] Glucose [Mass/Vol] 190 mg/dL High 5599 [facility] Comment on above: Result Comment: Repe at Test Performed By: #### 2 [id number] #### [facility] [address] [place], [place] [id number] ED Clinical Summaryon 2024 ED Clinical Summary ED Clinical Summary [address] [address] ED Clinical Summary Person Information Name: FARTUN SCHNEIDER [place] Age: 69 Years : 1955 Sex: Female Language: Luxembourger PCP: Marcelo Call DO Marital Status: Single Visit Id: Visit Reason: Hypotension; Diarrhea; Abdominal pain; fall Speciality: Acuity: 2 Enc Type: Inpatient Med Service: Medical Arrival: 10/22/2024 14:22:13 Discharge: LOS: 000 08:07 Checkin: 10/22/2024 14:22:13 Checkout: 10/22/2024 22:29:47 Dispo Type: Admitted as IP to this [facility] EVENTS: Event Name Event Status Request Date/Time Start Date/Time Complete Date/Time Arrive Complete 10/22/2024 14:22:13 10/22/2024 14:22:13 10/22/2024 14:22:13 Document Home Meds Request 10/22/2024 14:22:13 Triage Complete 10/22/2024 14:22:13 10/22/2024 15:08:06 10/22/2024 15:08:06 Bed Assign Complete 10/22/2024 14:22:13 10/22/2024 14:22:13 10/22/2024 14:22:13 Dr Exam Complete 10/22/2024 14:22:13 10/22/2024 14:27:10 10/22/2024 14:27:10 RN Exam Complete 10/22/2024 14:22:13 10/22/2024 15:17:45 10/22/2024 15:17:45 Registration Complete 10/22/2024 14:27:10 10/22/2024 15:44:36 10/22/2024 15:44:36 EKG Complete 10/22/2024 14:33:32 10/22/2024 14:59:35 Meds Admin Complete 10/22/2024 14:33:32 10/22/2024 14:55:31 Pending Labs Request 10/22/2024 14:33:32 Lab Complete 10/22/2024 14:33:32 10/22/2024 15:46:06 CT Cancel 10/22/2024 14:33:32 10/22/2024 14:36:55 X-Ray Complete 10/22/2024 14:33:32 10/22/2024 14:34:53 10/22/2024 15:22:53 Patient Care Request 10/22/2024 14:36:36 Pending Labs Complete 10/22/2024 14:54:59 10/22/2024 15:16:28 Meds Admin Complete 10/22/2024 15:21:38 10/22/2024 16:12:20 CT Cancel 10/22/2024 15:21:38 10/22/2024 16:41:44 Pending Labs Complete 10/22/2024 15:22:16 10/22/2024 15:22:16 10/22/2024 15:46:06 Lab Complete 10/22/2024 15:22:16 10/22/2024 15:22:16 10/22/2024 15:46:06 Wet Read Request 10/22/2024 15:22:53 Possible Sepsis Request 10/22/2024 15:31:03 Meds Admin Complete 10/22/2024 15:31:43 10/22/2024 16:12:21 Reg Complete Request 10/22/2024 15:44:36 Reg Bed Request Complete 10/22/2024 15:44:36 10/22/2024 15:44:36 10/22/2024 15:44:36 Dr Exam Complete 10/22/2024 18:51:12 10/22/2024 18:51:12 10/22/2024 18:51:12 Registration Complete 10/22/2024 18:51:12 10/22/2024 19:27:47 10/22/2024 19:27:47 Pending Labs Complete 10/22/2024 19:40:30 10/22/2024 19:40:30 10/22/2024 19:40:30 Consult Request 10/22/2024 19:56:43 Hospitalist Consult Request 10/22/2024 19:56:43 Admit Request 10/22/2024 20:02:41 Patient Care Request 10/22/2024 20:02:41 Patient Care Request 10/22/2024 20:02:43 Patient Care Request 10/22/2024 20:02:43 Patient Care Request 10/22/2024 20:02:43 Patient Care Request 10/22/2024 20:02:43 Medicare Form Complete 10/22/2024 20:02:44 10/22/2024 20:39:08 Patient Care Request 10/22/2024 20:02:44 Patient Care Request 10/22/2024 20:02:45 Pending Labs Request 10/22/2024 20:03:49 Consult Request 10/22/2024 20:03:54 Meds Admin Request 10/22/2024 20:03:54 Patient Care Request 10/22/2024 20:03:54 Pending Labs Inlab 10/22/2024 20:03:54 Blood Collect Request 10/22/2024 20:03:54 Meds Admin Complete 10/22/2024 20:10:22 10/22/2024 20:17:47 Patient Care Request 10/22/2024 21:02:36 Meds Admin Request 10/22/2024 21:02:36 RT Request 10/22/2024 21:02:36 Pending Labs Request 10/22/2024 21:02:36 Lab Request 10/22/2024 21:02:36 Pending Labs Complete 10/22/2024 21:43:22 10/22/2024 21:43:22 10/22/2024 21:43:23 ADDRESS: [address] [place] [address] [address] [facility] [id number] PHYS DOC NOTES: MEDICAL INFORMATION: Prescriptions Given: Medications to Continue with No Changes Other Medications acetaminophen (acetaminophen 325 mg Tab) 1 Tablets By Mouth 3 times a day as needed for fever. Take 1 tablet by mouth three times a day as needed. Refills: 1. acetaminophen (Tylenol 325 mg Tab) 1 Tablets By Mouth 3 times a day. 1 tablet by mouth three times a day as needed. acetaminophen-oxycodone (acetaminophen-oxycodone 325 mg-5 mg Tab) 1 Tablets By Mouth 3 times a day as needed for pain. May take between 8am and 8pm 30 day supply. Refills: 0. ascorbic acid (ascorbic acid 500 mg Tab) 1 Tablets By Mouth 2 times a day. Refills: 4. atorvastatin (atorvastatin 40 mg Tab) 1 Tablets By Mouth every day. Refills: 4. bisacodyl (bisacodyl 5 mg Oral EC Tab) 2 Tablets By Mouth Once as needed Constipation. buPROPion (BuPROPion (Eqv-Wellbutrin SR) 150 mg/12 hours oral tablet, extended release) 1 Tablets By Mouth 2 times a day. Refills: 4. carvedilol (carvedilol 12.5 mg Tab) 1 Tablets By Mouth 2 times a day. Refills: 4. celecoxib (CeleBREX 100 mg Cap) 1 Capsules By Mouth 2 times a day as needed Pain. diazepam (diazepam 2 mg Tab) 1 Tablets By Mouth 3 times a day. For 30 day supply. Refills: 0. dicyclomine (Bentyl 10 mg Cap) 1 Capsules By Mouth 4 times a day. Refills: 1. dulaglutide (dulaglutide 0.75 mg/0.5 mL subcutaneous solution) 0.75 Milligr (more content not included)... [facility] ED Note-Physicianon 10-23-19 ED Note-Physician ED Note-Physician Basic Information Time Seen: Vinayak Cardoso PA-C 10/22/2024 14:27 Chief Complaint pt c/o abd pain and diarrhea that started today. pt was found to be hypotensive. History of Present Illness 69-year-old female reports to the emergency department via squad with concerns of abdominal pain and diarrhea. Reports started today. Reports that she felt very weak and had to be lowered to the ground because of this. She states that she had diarrhea and messed herself . Reports no blood thinners. She states he just feels very unwell. Reports that she does have a history of DNR CC. [facility] [place]. She denies any chest pain at this time. Reports history of diabetes. Review of Systems No other aggravating or relieving factors no other associated symptoms no other prior treatments or complaints. Family: Reviewed and noncontributory Social: lives at home Review of systems negative unless otherwise specified in the HPI. Physical Exam Vitals & Measurements T: 35.9 ???C(Tympanic) HR: 89(Monitored) RR: 16 BP: 152/65 SpO2: 97% HT: 162 cm WT: 71 kg BMI: 27.05 General: The patient to be diaphoretic, resting in bed. No acute distress. Afebrile. Skin: Warm, no pallor noted. Mildly diaphoretic Head: Normocephalic, atraumatic Neck: No JVD Eye: PERRLA, EOMI ENT: Moist mucus membranes Cardiovascular: Regular rate. normal peripheral perfusion. Radial pulses +2 bilaterally Respiratory: No respiratory distress. no accessory muscle use. no obvious audible wheezing Chest Wall: no deformity Musculoskeletal: normal ROM, no deformity, no swelling GI: No obvious distention. Mild generalized tenderness throughout the entire abdomen. No rebound tenderness or guarding noted. Neurological: A&O. moves all extremities equal strength and symmetry Psychiatric: Cooperative and appropriate Procedure Critical Care Procedure Note Authorized and Performed by: Raul Arnold DO Total critical care time: 35 min Due to a high probability of clinically significant, life threatening deterioration, the patient required my highest level of preparedness to intervene emergently and I personally spent this critical care time directly and personally managing the patient. This critical care time included obtaining a history; examining the patient; pulse oximetry; ordering and review of studies; arranging urgent treatment with development of a management plan; evaluation of patient's response to treatment; frequent reassessment; and, discussions with other providers. This critical care time was performed to assess and manage the high probability of imminent, life-threatening deterioration that could result in multi-organ failure. It was exclusive of separately billable procedures and treating other patients and teaching time. Please see MDM section and the rest of the note for further information on patient assessment and treatment. Medical Decision Making 69-year-old female reports to the ED with concerns of abdominal pain and diarrhea. Started today. Had episode where she messed herself , and felt like she was almost going to pass out, had to be lowered to the floor because of this. Reports that she is a mess at this time. On initial presentation, abdomen is mild tenderness, but relatively benign exam otherwise. She does have bowel here, did have some darker stool, but not black and tarry. Some very small amount of jorge luis blood was noted in the stool. Concern for possible GI bleed. Due to concern to do a full workup on the patient. Laboratory noted. No acute changes seen. Currently pending scans at this time. Patient handed off to attending physician for further evaluation. Signout note: Vital stable, the patient is afebrile. Her blood pressure has remained stable after her 2L crystalloid resuscitation. Abdomen remains benign. CTA shows colitis. No other acute findings. Discussed via telephone with Dr. Duckworth. Plan for stool studies. No antibiotics at this time. Will consider endoscopy. Patient updated on plan. Case was discussed with Dr. Alejandra who agrees admit the patient to his service. Raul Arnold DO, FAAEM Assessment/Plan Acute colitis (K52.9: Noninfective gastroenteritis and colitis, unspecified) Acute hypotension (I95.9: Hypotension, unspecified) GI bleed (K92.2: Gastrointestinal hemorrhage, unspecified) Orders: Capillary Glucose POC Clostridium Difficile PCR ED Physician consult Hospitalist for continued care Enteric Panel by PCR O & P Exam, Routine Medications Administered Given fentanyl 50 mcg/mL injectable solution, 50 mcg, IV Push NS 1000 ml Bolus, 1000 mL, IV NS 1000 ml Bolus, 1000 mL, IV pantoprazole 40 mg IV Inj, 40 mg, IV Push Disposition Plan Patient Discharge Condition Fair Discharge Disposition Admitted Discharge Prescription List Prescriptions acetaminophen-oxycodone 325 mg-5 mg Tab, 1 tab(s), Oral, TID, PRN Follow-up No qualifying data available Attestation P (more content not included)... [facility] Comment on above: Result Comment: Elec tronically Signed By: Vinayak Cardoso PA-C\.br\Date and Time Signed: 10/22/24 18:53 EDT\.br\Electronically Co-Signed By: Raul Arnold DO\.br\Date and Time Co-Signed: 10/22/24 20:08 EDT ED Patient Education Noteon 10-22-2024 ED Patient Education Note ED Patient Education Note [facility] ED Patient Summaryon 025 ED Patient Summary ED Patient Summary [place] [id number] Patient Discharge Instructions Person Information Name: FARTUN SCHNEIDER Age: 69 Years Arrival Date: 10/22/2024 14:22:13 Discharge Diagnosis: 1:GI bleed; 2:Acute colitis; 3:Acute hypotension; 4:Hyperlipidemia; 5:HTN (hypertension); 6:Hypothyroidism; 7:DM2 (diabetes mellitus, type 2); 8:Chronic prescription opiate use; 9:Bipolar disorder; 10:On deep vein thrombosis (DVT) prophylaxis Primary Care Physician: Marcelo Call DO Provider Information Primary Provider: Raul Arnold DO Advanced Concrete Gr[employer] Operator:Vinayak Cardoso PA-C The exam and treatment you received in the Emergency Department were for an urgent problem and are not intended as complete care. It is important that you follow up with a doctor, nurse practitioner, or physician???s physician assistant surgery for ongoing care. If your symptoms become worse or you do not improve as expected and you are unable to reach your usual health care provider, you should return to the Emergency Department. We are available 24 hours a day. ZACHFARTUN has been given the following list of patient education materials, prescriptions and follow-up instructions: Follow-up Instructions: In the event that this physician does not participate in your insurance network, please consult with your insurance company to find a nearby participating provider. Patient Education Materials: A MESSAGE TO ALL PATIENTS REGARDING OPIOIDS PRESCRIPTION OPIOIDS: WHAT YOU NEED TO KNOW Prescription opioids can be used to help relieve dbzggovj-fq-cajmsh pain and are often prescribed following a surgery or injury, or for certain health conditions. These medications can be an important part of the treatment but also come with serious risks. It is important to work with your healthcare provider to make sure you are getting the safest, most effective care. WHAT ARE THE RISKS AND SIDE EFFECTS OF OPIOID USE? Prescription opioids carry serious risks of addiction and overdose, especially with prolonged use. An opioid overdose, often marked by slowed breathing, can cause sudden . The use of prescription opioids can have a number of side effects as well, even when taken as directed: ??? Tolerance???meaning you might need to take more of the medication for the same pain relief ??? Physical dependence???meaning you have symptoms of withdrawal when a medication is stopped ??? Increased sensitivity to pain ??? Constipation ??? Nausea, vomiting, and dry mouth ??? Sleepiness and dizziness ??? Confusion ??? Depression ??? Low levels of testosterone that can result in lower sex drive, energy, and strength ??? Itching and sweating RISKS ARE GREATER WITH: ??? History of drug misuse, substance use disorder, or overdose ??? Mental health conditions (such as depression or anxiety) ??? Sleep apnea ??? Older age (65 years and older) ??? Avoid alcohol while taking prescription opioids. Also, unless specifically advised by your health care provider, medications to avoid include: ??? Benzodiazepines (such as Xanax or Valium) ??? Muscle relaxants (such as Soma or Flexeril) ??? Hypnotics (such as Ambien or Lunesta) ??? Other prescription opioids KNOW YOUR OPTIONS Talk to your health care provider about ways to manage your pain that don???t involve prescription opioids. Some of these options may actually work better and have fewer risks and side effects. Options may include: ??? Pain relievers such as acetaminophen, ibuprofen, and naproxen ??? Some medication that are also used for depression or seizures ??? Physical therapy and exercise ??? Cognitive behavioral therapy, a psychological, goal-directed approach, in which patients learn how to modify physical, behavioral, and emotional triggers of pain and stress. IF YOU ARE PRESCRIBED OPIOIDS FOR PAIN: ??? Never take opioids in greater amounts or more often than prescribed. ??? Follow up with your primary health care provider. o Work together to create a plan on how to manage your pain. o Talk about ways to help manage your pain that don???t involve prescription opioids. o Talk about any and all concerns and side effects. ??? Help prevent misuse and abuse o Never sell or share prescription opioids. o Never use another person???s prescription opioids. ??? Store prescription opioids in a secure place and out of reach of others (this may include visitors, children, friends, and family). ??? Safely dispose of unused prescription opioids: Find your community drug take-back program or your pharmacy mail-back program, or flush them down the toilet, following guidance from the Food and Drug Administration (www.fda.gov/Drugs/Resource sForYou). ??? Visit www.cdc.gov/drugoverdose to learn about the risks of opioids abuse and overdose. ??? If you believe you may be s (more content not included)... [facility] Hep Func Panelon 10-22-2024 Albumin [Mass/Vol] 3.2 g/dL Low 3.3-5.0 [facility] Comment on above: Performed By: #### 2 [id number] #### [facility] [address] [place] [address] Albumin/Globulin [Mass ratio] 1.1 {ratio} Normal 1.1-2.2 [facility] Comment on above: Performed By: #### 2 [id number] #### [facility] [address] [place] [address] Alk Phos 73 Int._Unit/L Normal 21-98 [facility] Comment on above: Performed By: #### 2 [id number] #### [facility] [address] [place] [address] ALT 8 Int._Unit/L Normal 6-46 [facility] Comment on above: Performed By: #### 2 [id number] #### [facility] [address] [place] [address] AST 14 Int._Unit/L Normal 5-43 [facility] Comment on above: Performed By: #### 2 [id number] #### [facility] [address] [place] [address] Bili Direct 0.2 mg/dL Normal 0.0-0.4 [facility] Comment on above: Performed By: #### 2 [id number] #### [facility] [address] [place] [address] Bili Indirect 0.4 mg/dL Normal 0.1-0.9 [facility] Comment on above: Performed By: #### 2 [id number] #### [facility] [address] [place] [address] Bili Total 0.6 mg/dL Normal 0.0-1.1 [facility] Comment on above: Performed By: #### 2 [id number] #### [facility] [address] [place] [address] Globulin (S) [Mass/Vol] 2.8 g/dL Normal 1.4-4.0 [facility] Comment on above: Performed By: #### 2 [id number] #### [facility] [address] [place] [address] Protein [Mass/Vol] 6.0 g/dL Normal 6.0-7.8 [facility] Comment on above: Performed By: #### 2 [id number] #### [facility] [address] [place] [address] Lactic Acidon 10-22-2024 Lactic Acid Lvl 1.9 mmol/L Normal 0.5-2.2 [facility] Comment on above: Performed By: #### 2 [id number] #### [facility] [address] [place] [address] Lipase Levelon 10-22-2024 Lipase Lvl 39 unit/L Normal 13-58 [facility] Comment on above: Performed By: #### 2 [id number] #### [facility] [address] [place] [address] PT & PTTon 10-22-2024 INR Coag (PPP) [Relative time] 1.06 {INR} Invalid Interpretation Code [facility] Comment on above: Result Comment: INR results are specifically intended to assess patients stabilized on long-term Anticoagulation therapy suggested INR???s ???Less Intensive Anticoagulation??? 2.0 ??? 3.0 Conventional Range 3.0 ??? 4.5 Performed By: #### 1 [id number] #### [facility] [address] [place] [address] PT 11.9 second(s) Normal 9.4-12.5 [facility] Comment on above: Result Comment: 15 d ays - 4 weeks 1 - 5 months 6 -11 months 1 ??? 5 years 6 ??? 10 years 11 -17 years Mean: 11.2 (9.5 ??? 12.6) Mean: 11.0 (9.7 ??? 12.8) Mean: 11.0 (9.8 ??? 13.0) Mean: 11.3 (9.9 ??? 13.4) Mean: 11.7 (10.0 ??? 14.6) Mean: 11.8 (10.0 - 14.1) Pediatric Reference ranges were obtained from a study by Constantin Ward et al. prepared from 1437 samples obtained at 7 different centers using the same coagulation reagent and instrumentation as [facility]. Currently there are no coagulation studies available worldwide for children to 14 days, and no normal ranges. Performed By: #### 1 [id number] #### [facility] [address] [place] [address] PTT 30.1 second(s) Normal 25.1-36.5 [facility] Comment on above: Result Comment: Para [...] the same coagulation reagent and instrumentation as [facility]. Currently there are no coagulation studies available worldwide for children to 14 days, and no normal ranges. Heparin therapeutic range (represented by Anti-Factor Xa activity of 0.2 - 0.4 U/mL) corresponds to PTT of 56.6 - 109.0 sec. Performed By: #### 1 [id number] #### [facility] [address] [place] [address] Pre-Arrival Noteon Pre-Arrival Note Pre-Arrival Note Pre-Arrival Summary Name: , Current Date: 10/22/2024 14:22:48 EDT Gender: Date of : Age: 69 Pre-Arrival Type: EMS ETA: 10/22/2024 14:49:00 EDT Primary Care Physician: Presenting Problem: fall- t1 Pre-Arrival User: Dash Silver Referring Source: Location: [place] Completion Date/Time: 10/22/2024 14:19:00 [facility] Emergency Department Pre-Hospital Report Form Vital Signs: Pre-Hospital Report: Treatment in Route: Response to Treatment: Misc. Issues: [facility] Stl Oclt Bldon 10-22-2024 Occult Bld Stl Positive Abnormal Negative [facility] Comment on above: Performed By: #### 2 [id number] #### [facility] [address] [place] [address] Troponin 0 Hr.on 10-22-2024 Troponin HS 5.00 pg/mL Low 10.10-27.1 0 [facility] Comment on above: Result Comment: The 95% CI (Confidence Interval) PPV (Positive Predictive Value) for myocardial infarction in females is 38 pg/mL, in males 51 pg/mL. The results should be used in conjunction with clinical conditions of myocardial infarction. (Access High Sensitivity Troponin I Instructions For Use, ClearView™ Audio, October 2017) Performed By: #### 1 [id number] #### [facility] [address] [place] [address] Troponin 1 Hr.on 10-22-2024 Troponin HS 7.40 pg/mL Low 10.10-27.1 0 [facility] Comment on above: Result Comment: The 95% CI (Confidence Interval) PPV (Positive Predictive Value) for myocardial infarction in females is 38 pg/mL, in males 51 pg/mL. The results should be used in conjunction with clinical conditions of myocardial infarction. (Minted High Sensitivity Troponin I Instructions For Use, ClearView™ Audio, October 2017) Performed By: #### 1 [id number] #### [facility] [address] [place] [address] XR Chest Single Viewon 10-22 XR Chest Single View Exam Date/Time: 10/22/2024 15:22 EDT Reason for Exam: Shortness of breath (SOB) Report IMPRESSION: NO EVIDENCE OF ACTIVE CARDIOPULMONARY DISEASE, BY PORTABLE CHEST RADIOGRAPHY. EXAM: XR Chest Single View DATE: 10/22/2024 3:07 PM CLINICAL HISTORY: Shortness of breath (SOB). COMPARISON: 12/23/2022. TECHNIQUE: A portable upright AP radiograph of the chest was obtained. FINDINGS: There are shallow inspiratory volumes, without significant pulmonary infiltrate, cardiomegaly, vascular congestion, sizable pleural effusion, pneumothorax, or other findings of concern identified. Ordering Provider: Vinayak Cardoso FINAL REPORT Dictated: 10/22/2024 3:36 pm Devang Thomas MD Signed (Electronic Signature): 10/22/2024 3:36 pm Signed by: Devang Thomas MD Transcribed by: ARTIS Technologist: CML [facility] eGFRon 10-22-2024 eGFR 61 mL/min/1.73 m2 Normal >=59 [facility] Comment on above: Performed By: #### 1 [id number] #### [facility] [address] [place] [address] ED Clinical Summaryon 2024 ED Clinical Summary ED Clinical Summary [address] [address] ED Clinical Summary Person Information Name: FARTUN SCHNEIDER [place] Age: 68 Years : 1955 Sex: Female Language: Luxembourger PCP: Marcelo Call DO Marital Status: Single Visit Id: Visit Reason: Medical problem - minor; Skin problem; Rash; RASH Speciality: Acuity: 4 Enc Type: Emergency Med Service: Emergency Arrival: 09/26/2024 11:42:09 Discharge: 09/26/2024 12:48:07 LOS: 000 01:06 Checkin: 09/26/2024 11:42:09 Checkout: 09/26/2024 12:48:07 Dispo Type: Eloped EVENTS: Event Name Event Status Request Date/Time Start Date/Time Complete Date/Time Arrive Complete 09/26/2024 11:42:09 09/26/2024 11:42:09 09/26/2024 11:42:09 Document Home Meds Request 09/26/2024 11:42:09 Triage Complete 09/26/2024 11:42:09 09/26/2024 11:48:26 09/26/2024 11:48:26 Bed Assign Complete 09/26/2024 11:43:38 09/26/2024 11:43:38 09/26/2024 11:43:38 Dr Exam Complete 09/26/2024 11:43:38 09/26/2024 11:50:53 09/26/2024 11:50:53 RN Exam Complete 09/26/2024 11:43:38 09/26/2024 11:49:20 09/26/2024 11:49:20 Registration Complete 09/26/2024 11:50:53 09/26/2024 12:00:46 09/26/2024 12:00:46 Reg Complete Request 09/26/2024 12:00:46 Reg Bed Request Complete 09/26/2024 12:00:46 09/26/2024 12:00:46 09/26/2024 12:00:46 Discharge Complete 09/26/2024 12:48:25 09/26/2024 12:48:25 09/26/2024 12:48:25 Transfer Complete 09/26/2024 12:48:25 09/26/2024 12:48:25 09/26/2024 12:48:25 ADDRESS: [address] [place] [address] [place] [id number] PHYS DOC NOTES: MEDICAL INFORMATION: Prescriptions Given: Medications to Continue with No Changes Other Medications acetaminophen (acetaminophen 325 mg Tab) 1 Tablets By Mouth 3 times a day as needed for fever. Take 1 tablet by mouth three times a day as needed. Refills: 1. acetaminophen (Tylenol 325 mg Tab) 1 Tablets By Mouth 3 times a day. 1 tablet by mouth three times a day as needed. acetaminophen-oxycodone (acetaminophen-oxycodone 325 mg-5 mg Tab) 1 Tablets By Mouth every 12 hours as needed for pain. 30 day supply. Refills: 0. ascorbic acid (ascorbic acid 500 mg Tab) 1 Tablets By Mouth 2 times a day. Refills: 4. atorvastatin (atorvastatin 40 mg Tab) 1 Tablets By Mouth every day. Refills: 4. bisacodyl (bisacodyl 5 mg Oral EC Tab) 2 Tablets By Mouth Once as needed Constipation. buPROPion (BuPROPion (Eqv-Wellbutrin SR) 150 mg/12 hours oral tablet, extended release) 1 Tablets By Mouth 2 times a day. Refills: 4. carvedilol (carvedilol 12.5 mg Tab) 1 Tablets By Mouth 2 times a day. Refills: 4. celecoxib (CeleBREX 100 mg Cap) 1 Capsules By Mouth 2 times a day as needed Pain. diazepam (diazepam 2 mg Tab) 1 Tablets By Mouth 3 times a day. For 30 day supply. Refills: 0. dicyclomine (Bentyl 10 mg Cap) 1 Capsules By Mouth 4 times a day. Refills: 1. dulaglutide (dulaglutide 0.75 mg/0.5 mL subcutaneous solution) 0.75 Milligram Subcutaneous every week. Refills: 11. ferrous sulfate (ferrous sulfate 325 mg Tab) 1 Tablets By Mouth 2 times a day. Refills: 11. gabapentin (gabapentin 300 mg Cap) 1 Capsules By Mouth 3 times a day. Refills: 1. gabapentin (gabapentin 600 mg Tab) 1 Tablets By Mouth 3 times a day. Refills: 2. insulin glargine (Lantus 100 units/mL Injection-Insulin) 15 Units Subcutaneous once a day (at bedtime). Refills: 5. levothyroxine (levothyroxine 112 mcg (0.112 mg) Tab) 1 Tablets By Mouth every day. Refills: 11. liraglutide (Saxenda 18 mg/3 mL subcutaneous solution) 1.2 Milligram Subcutaneous every day. Replacing Trulicity due to backorder. Refills: 2. lisinopril (lisinopril 10 mg Tab) 1 Tablets By Mouth every day. Refills: 4. Misc Prescription (OffScale Multi Blood Glucose Monitoring System) To check blood glucose levels. Refills: 2. 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 Refills: 0. Misc Prescription (sensors) francheska 2 sensors change q 14 days E11.42. Refills: 4. nystatin topical (nystatin Top 100,000 units/g Pwdr) 1 Application Topical 2 times a day. Refills: 2. omeprazole (omeprazole 20 mg Cap-DR) 1 Capsules By Mouth every day. Refills: 4. ondansetron (ondansetron 4 mg Tab) 1 Tablets By Mouth every 4 hours as needed Nausea/Vomiting. Refills: 3. oxybutynin (oxybutynin 5 mg ER Tab) 1 Tablets By Mouth every day. Refills: 4. paroxetine (paroxetine 40 mg Tab) 1 Tablets By Mouth every day. Refills: 0. polyethylene glycol 3350 (Miralax 3350 17 gram packet) 17 Gram By Mouth every day. Refills: 0. potassium chloride (potassium chloride 20 mEq ER Tab) 2 Tablets By Mouth every day. Refills: 4. trazodone (traZODONE 100 mg Tab) 1 Tablets By Mouth once a day (at bedtime). Refills: 2. PATIENT EDUCATION INFORMATION: Instructions: Follow up: DIAGNOSIS: [facility] ED Note-Nursingon 09-26-2024 ED Note-Nursing ED Note-Nursing Pt states she doesn't want to wait, is leaving. [facility] ED Patient Education Noteon 09-26-2024 ED Patient Education Note ED Patient Education Note [facility] ED Patient Summaryon 025 ED Patient Summary ED Patient Summary [address] [address] Patient Discharge Instructions Person Information Name: FARTUN SCHNEIDER Age: 68 Years Arrival Date: 09/26/2024 11:42:09 Discharge Diagnosis: Primary Care Physician: Marcelo Call DO Provider Information Primary Provider: Advanced Concrete Grinder Operator:None The exam and treatment you received in the Emergency Department were for an urgent problem and are not intended as complete care. It is important that you follow up with a doctor, nurse practitioner, or physician???s physician assistant surgery for ongoing care. If your symptoms become worse or you do not improve as expected and you are unable to reach your usual health care provider, you should return to the Emergency Department. We are available 24 hours a day. FARTUN SCHNEIDER has been given the following list of patient education materials, prescriptions and follow-up instructions: Follow-up Instructions: In the event that this physician does not participate in your insurance network, please consult with your insurance company to find a nearby participating provider. Patient Education Materials: A MESSAGE TO ALL PATIENTS REGARDING OPIOIDS PRESCRIPTION OPIOIDS: WHAT YOU NEED TO KNOW Prescription opioids can be used to help relieve ovzyffut-pd-eswzlk pain and are often prescribed following a surgery or injury, or for certain health conditions. These medications can be an important part of the treatment but also come with serious risks. It is important to work with your healthcare provider to make sure you are getting the safest, most effective care. WHAT ARE THE RISKS AND SIDE EFFECTS OF OPIOID USE? Prescription opioids carry serious risks of addiction and overdose, especially with prolonged use. An opioid overdose, often marked by slowed breathing, can cause sudden . The use of prescription opioids can have a number of side effects as well, even when taken as directed: ??? Tolerance???meaning you might need to take more of the medication for the same pain relief ??? Physical dependence???meaning you have symptoms of withdrawal when a medication is stopped ??? Increased sensitivity to pain ??? Constipation ??? Nausea, vomiting, and dry mouth ??? Sleepiness and dizziness ??? Confusion ??? Depression ??? Low levels of testosterone that can result in lower sex drive, energy, and strength ??? Itching and sweating RISKS ARE GREATER WITH: ??? History of drug misuse, substance use disorder, or overdose ??? Mental health conditions (such as depression or anxiety) ??? Sleep apnea ??? Older age (65 years and older) ??? Avoid alcohol while taking prescription opioids. Also, unless specifically advised by your health care provider, medications to avoid include: ??? Benzodiazepines (such as Xanax or Valium) ??? Muscle relaxants (such as Soma or Flexeril) ??? Hypnotics (such as Ambien or Lunesta) ??? Other prescription opioids KNOW YOUR OPTIONS Talk to your health care provider about ways to manage your pain that don???t involve prescription opioids. Some of these options may actually work better and have fewer risks and side effects. Options may include: ??? Pain relievers such as acetaminophen, ibuprofen, and naproxen ??? Some medication that are also used for depression or seizures ??? Physical therapy and exercise ??? Cognitive behavioral therapy, a psychological, goal-directed approach, in which patients learn how to modify physical, behavioral, and emotional triggers of pain and stress. IF YOU ARE PRESCRIBED OPIOIDS FOR PAIN: ??? Never take opioids in greater amounts or more often than prescribed. ??? Follow up with your primary health care provider. o Work together to create a plan on how to manage your pain. o Talk about ways to help manage your pain that don???t involve prescription opioids. o Talk about any and all concerns and side effects. ??? Help prevent misuse and abuse o Never sell or share prescription opioids. o Never use another person???s prescription opioids. ??? Store prescription opioids in a secure place and out of reach of others (this may include visitors, children, friends, and family). ??? Safely dispose of unused prescription opioids: Find your community drug take-back program or your pharmacy mail-back program, or flush them down the toilet, following guidance from the Food and Drug Administration (www.fda.gov/Drugs/Resource sForYou). ??? Visit www.cdc.gov/drugoverdose to learn about the risks of opioids abuse and overdose. ??? If you believe you may be struggling with addiction, tell your health lpn care manager and ask for guidance or call [facility]S National Helpline at 5-329-386-HTPY. v Source: US Department of Health and Human Services/Center for Disease Control & Prevention [facility] Medications (more content not included)... [facility] Ambulatory Visit Summaryon 0 09-21-2024 Ambulatory Visit Summary Ambulatory Visit Summary FARTUN SCHNEIDER :1955 Visit Date:09/21/2024 Ambulatory Visit Instructions Your Diagnosis Type 2 diabetes mellitus with hyperlipidemia Bipolar disorder Hyperlipidemia, Hyperlipidemia, unspecified BMI 27.0-27.9,adult Non-smoker Risk for falls Your Care Team Attending Physician - Marcelo Call DO Primary Care Physician - Marcelo Call DO This Is Your Medications List Misc Prescription (OffScale Multi Blood Glucose Monitoring System) Misc Prescription (reader) Misc Prescription (sensors) acetaminophen (Tylenol 325 mg Tab) acetaminophen (acetaminophen 325 mg Tab) acetaminophen-oxycodone (acetaminophen-oxycodone 325 mg-5 mg Tab) ascorbic acid (ascorbic [...] mg Tab) gabapentin (gabapentin 300 mg Cap) gabapentin (gabapentin 600 mg Tab) insulin glargine (Lantus 100 units/mL Injection-Insulin) levothyroxine (levothyroxine 112 mcg (0.112 mg) Tab) liraglutide (Saxenda 18 mg/3 mL subcutaneous solution) lisinopril (lisinopril 10 mg Tab) nystatin topical (nystatin Top 100,000 units/g Pwdr) omeprazole (omeprazole 20 mg Cap-DR) ondansetron (ondansetron 4 mg Tab) oxybutynin (oxybutynin 5 mg ER Tab) paroxetine (paroxetine 40 mg Tab) polyethylene glycol 3350 (Miralax 3350 17 gram packet) potassium chloride (potassium chloride 20 mEq ER Tab) trazodone (traZODONE 100 mg Tab) Procedures Performed Aspiration of hip joint (04/11/2023), Aspiration of hip joint (02/13/2023), Repair of fracture of hip by nailing using fluoroscopic guidance (12/20/2022), History of hemiarthroplasty of right hip (11/25/2022), Esophagogastroduodenoscopy (05/09/2022), Arthroscopy of shoulder (08/16/2020), Excision of mass of neck (03/11/2019), Arthroplasty of finger (03/10/2018), percutaneous pinning left hip (10/03/2014), left total knee replacement with hardware removal (12/07/2013), right total knee arthroplasty (06/08/2013), Right knee (12/14/2012), BASILAR ARTHROPLASTY OF THUMB, Cyst - diagnostic aspiration, ESWL of kidney, gallbladder removed, jaw surgery, left knee ORIF, RENY BSO - Total abdominal hysterectomy and bilateral salpingo-oophorectomy, 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. Discharge Vitals Heart Rate (Peripheral) 80 Respiratory Rate 18 Blood Pressure 104/62 Height 162.5 cm Height 64 in Weight 71.5 kg Weight 157.63 lb BMI 27.08 What to do next Scheduled Follow-Up Appointments 2024 9:20 AM EDT With: Marcelo Call DO Where: [facility] [address] [place] [address]- 2024 11:00 AM EDT With: Where: [place] [address] [place] [address]- Medications What How Much When Why Instructions Unchanged acetaminophen (acetaminophen 325 mg Tab) 1 Tablets By Mouth 3 times a day as needed for for fever Take 1 tablet by mouth three times a day as needed Unchanged acetaminophen (Tylenol 325 mg Tab) 1 Tablets By Mouth 3 times a day 1 tablet by mouth three times a day as needed Unchanged acetaminophen-oxycodone (acetaminophen-oxycodone 325 mg-5 mg Tab) 1 Tablets By Mouth Every 12 hours as needed for for pain Chronic pain 30 day supply Unchanged ascorbic acid (ascorbic acid 500 mg [...] Pain Unchanged diazepam (diazepam 2 mg Tab) 1 Tablets By Mouth 3 times a day Depression with anxiety For 30 day supply Unchanged dicyclomine (Bentyl 10 mg Cap) 1 Capsules By Mouth 4 times a day Unchanged dulaglutide (dulaglutide 0.75 mg/ 0.5 mL subcutaneous solution) 0.75 Milligram Subcutaneous Every week Unchanged ferrous sulfate (ferrous sulfate 325 mg Tab) 1 Tablets By Mouth 2 times a day Unchanged gabapentin (gabapentin 300 mg Cap) 1 Capsules By Mouth 3 times a day Diabetes mellitus with polyneuropathy Chronic GERD Chronic pain Depression with anxiety HTN (hypertension) Hypothyroidism Herpes zoster lesion BMI 26.0-26.9,adult Non-smoker Unchanged gabapentin (gabapentin 600 mg Tab) 1 Tablets By Mouth 3 times a day Unchang (more content not included)... [facility] Family Medicine Office/Clini c Noteon 09-21-2024 Family Medicine Office/Clinic Note Family Medicine Office/Clinic Note Chief Complaint Chronic Condition follow up HPI Staff Patient here for Chronic Condition f/u Patient is here for follow up on Diabetes. How often are you checking your blood sugars? 2 times per day Completed by Kamlesh Boyd. Do you have any of the following symptoms? Vision problems? no GI-Nausea/committing/bloati ng? yes nausea and bloating Lightheadedness? yes Paresthesias, Ulcerations or sores? yes Sores on left arm and paresthesias on all four extremities. Patient would like to discuss lumps on the back of both thighs. Foot Exam: UTD Eye Exam: Needs to schedule U Microalb: 0.9 mg/dL (11/28/23 11:48:00) Hgb A1C %: 6.3 % High (11/24/22 00:57:00) Hgb A1c POC: 5.8 % (11/28/23 10:58:00) - completed at [facility], per patient 5.3 Patient is here for follow up on hypertension. How often are you checking your blood pressure? Doesn't check BP at home Do you have any of the following symptoms? Chest Pain? no Palpitations? no ALVARADO/SOB? no Headache? yes Peripheral Edema? yes bilateral lower extremities Labs: Completed at [facility] Patient is here for follow up on Thyroid Disease. Labs: completed at [facility] Follow up for Mental Status: Medication adherence- Yes, takes medication as prescribed Medication refill needed: yes Suicidal thoughts-Not at this time Most recent PAUL: 13 Most recent PHQ9: 16 UDS: 10/2023 Med A05/24/24 - Patient would like to discuss Percocet prescription, she would like it to be q6hrs during the day and one at night and Valium q8hrs during the day and one at night. [place]: 10/17/16, repeat in 10 years Dexa/Rex: per patient 2022 AMW: Scheduled for 11/11/24 History of Present Illness Patient presents today for DM recheck. - Ongoing issues with patient's findings of UTI due to incontinence - Changed over Ativan back to Diazepam since last visit at patient request Last A1c - 5.8% on 06/18/2024 Current medications - Dulaglutide 0.75mg subQ weekly, Lantus 15U subQ QHs Diabetic neuropathy - Yes, on gabapentin 300mg TID Diabetic retinopathy - None reported, up to date on eye appointments per patient report Diabetic education - Completed at prior practice Urine microalbumin - 11/28/2023 - 0.9 Diabetic foot exam - 06/18/2024 Statin - atorvastatin 40mg QD OARRS reviewed: Yes Medication Agreement updated: Yes Urine Drug Screen done: Yes 11/28/2023 Pill Count Done: No Today, patient states that she is doing well, with a couple concerns today. She is concerned that she is still not getting her controlled medications at night due to staff concerns, would like to know how this can be addressed. Review of Systems PHQ Score Initial Depression Screen Score: 6 SCORE ROS - Provider Constitutional: no fever, no chills Skin: yes rash, no lesions ENMT: no ear pain, [...] swings/depression. Physical Exam Vitals & Measurements HR: 80(Peripheral) RR: 18 BP: 104/62 SpO2: 99% HT: 162.5 cm HT: 64 in WT: 71.5 kg WT: 157.63 lb BMI: 27.08 General: Well developed, well nourished, in no acute distress Head: Normocephalic/atraumatic Eyes: Pupils equal, round, and reactive to [...] Grossly normal Skin: No petechiae, suspicious lesions, Mental Status: Alert and oriented x3. Normal mood and affect Assessment/Plan 1. Type 2 diabetes mellitus with hyperlipidemia (E11.69: Type 2 diabetes mellitus with other specified complication) POC A1c today is 5.8%. Stable, recommended we can reduce her insulin from 15U to 10U at this time. We will monitor for any new highs, but this should keep her away from lows. 2. Bipolar disorder (F31.9: Bipolar disorder, unspecified) Stable, no acute concerns. There is some concerns over bipolar paranoia, continue to monitor patient. 3. Hyperlipidemia, (E78.5: Hyperlipidemia, unspecified)Hyperlipidemia, unspecified Orders placed for labs today. Sent orders for patient through her paperwork for [employer]. 4. BMI 27.0-27.9,adult (Z68.27: Body mass index [BMI] 27.0-27.9, adult) The standard range for ages 18 (more content not included)... [facility] Comment on above: Result Comment: Elec tronically Signed By: Marcelo Call DO\Date and Time Signed: 09/21/24 15:[address] Head or Brain w/o Contras ton 08-24-2024 CT Head or Brain w/o Contrast Exam Date/Time: 08/23/2024 15:57 EDT Reason for Exam: Injury Report IMPRESSION: RIGHT FACIAL SWELLING. NO ACUTE INTRACRANIAL PROCESS, FRACTURE, OR OTHER SIGNIFICANT POSTTRAUMATIC COMPLICATION IDENTIFIED. EXAM: CT Head or Brain w/o Contrast, CT Maxillofacial w/o Contrast DATE: 08/23/2024 3:35 PM CLINICAL HISTORY: Injury. Technologist Comments: T2. c/o right sided facial and jaw pain after losing balance bending over to trash at 1230 and falling and hitting side of face on floor. pt denies LOC or blood thinners. EMS gave 50 mcg of fentanyl in route. denies pain anywhere else. COMPARISON: Head CT 09/04/[address] 11/05/2017. TECHNIQUE: Spiral unenhanced images were obtained of the head and face, with routine reconstructions performed for each study. All CT scans at this facility use dose modulation, iterative reconstruction, and/or weight based dosing when appropriate to reduce radiation dose to as low as reasonably achievable. HEAD CT FINDINGS: There is no intracranial hemorrhage, mass effect, midline shift, extra-axial collection, evidence of hydrocephalus, skull fracture, a recent or remote ischemic infarct identified. There is no significant atrophy or white matter changes, for age. FACE CT FINDINGS: Right facial soft tissue swelling. Surgical wire sutures within the anterior inferior maxilla again noted. There is no displaced fracture, significant paranasal sinus opacification, organized hematoma, or other acute findings identified. Both optic globes, the orbital contents, temporomandibular joints and mandible are intact. Report Ordering Provider: Earnest Guevara FINAL REPORT Dictated: 08/24/2024 8:23 am Devang Thomas MD Signed (Electronic Signature): 08/24/2024 8:23 am Signed by: Devang Thomas MD Transcribed by: ARTIS Technologist: [facility] CT Maxillofacial w/o Contras ton 08-24-2024 CT Maxillofacial w/o Contrast Exam Date/Time: 08/23/2024 15:57 EDT Reason for Exam: Trauma Report PLEASE SEE CT Head or Brain w/o Contrast REPORT DATED: 08/23/2024. All CT scans at this facility use dose modulation, iterative reconstruction, and/or weight based dosing when appropriate to reduce radiation dose to as low as reasonably achievable. Ordering Provider: Earnest Guevara FINAL REPORT Dictated: 08/24/2024 8:17 am Devang Thomas MD Signed (Electronic Signature): 08/24/2024 8:17 am Signed by: Devang Thomas MD Transcribed by: ARTIS Technologist: [facility] CT Spine Cervical w/o Contra ston 08-24-2024 CT Spine Cervical w/o Contrast Exam Date/Time: 08/23/2024 15:57 EDT Reason for Exam: Trauma Report IMPRESSION: NO FRACTURE OR EVIDENCE OF CERVICAL SPINE INJURY IDENTIFIED. EXAM: CT Spine Cervical w/o Contrast DATE: 08/23/2024 3:35 PM CLINICAL HISTORY: Trauma. Technologist Comments: T2. c/o right sided facial and jaw pain after losing balance bending over to trash at 1230 and falling and hitting side of face on floor. Pt denies LOC or blood thinners. EMS gave 50 mcg of fentanyl in route. Denies pain anywhere else. COMPARISON: 09/04/2022. TECHNIQUE: Spiral unenhanced imaging was obtained of the cervical spine, with routine reconstructions performed. All CT scans at this facility use dose modulation, iterative reconstruction, and/or weight based dosing when appropriate to reduce radiation dose to as low as reasonably achievable. FINDINGS: The spine is visualized from the craniovertebral junction through the T1-T2 level. There is no acute fracture, dislocation, or acute paraspinal soft tissue abnormalities identified. A nonunited dens C2 and mild to moderate degenerative changes are again noted. Ordering Provider: Earnest Guevara FINAL REPORT Dictated: 08/24/2024 8:28 am Devang Thomas MD Signed (Electronic Signature): 08/24/2024 8:28 am Signed by: Devang Thomas MD Transcribed by: ARTIS Technologist: [facility] XR Hip Bilat 2 Views + Pelvi son 08-24-2024 XR Hip Bilat 2 Views + Pelvis Exam Date/Time: 08/23/2024 16:13 EDT Reason for Exam: Pain, Traumatic Report IMPRESSION: NO ACUTE OSSEOUS ABNORMALITY. EXAMINATION: XR Hip Bilat 2 Views + Pelvis HISTORY: Hip pain COMPARISONS: 01/01/2024 radiographs TECHNIQUE: Frontal and lateral views of the hip. FINDINGS: Postsurgical changes of right hip arthroplasty again identified and not severely changed from prior examination. No periprosthetic abnormality. No hip dislocation. Postsurgical changes of the proximal left femur are noted. No acute displaced pelvic fracture. Degenerative changes of the lower lumbar spine. No posttraumatic soft tissue abnormality identified by radiography. Ordering Provider: Earnest Guevara FINAL REPORT Dictated: 08/24/2024 9:30 am Jelani Strickland DO Signed (Electronic Signature): 08/24/2024 9:30 am Signed by: Jelani Strickland DO Transcribed by: ARTIS Technologist: DYANA [facility] XR Spine Lumbosacral Minimum 4 Viewson 08-24-2024 XR Spine Lumbosacral Minimum 4 Views Exam Date/Time: 08/23/2024 16:13 EDT Reason for Exam: Pain, Traumatic Report IMPRESSION: NO ACUTE OSSEOUS ABNORMALITY. INTERVAL PROGRESSION OF LUMBAR SPINE DEGENERATIVE CHANGES. EXAMINATION: XR Spine Lumbosacral Minimum 4 Views TECHNIQUE: AP, lateral, bilateral oblique views of the lumbar spine and AP and lateral coned down view of the lumbosacral junction HISTORY: Low back pain COMPARISONS: Lumbar spine radiographs 11/19/2020 FINDINGS: Minimal levocurvature. Lumbar vertebral body heights are maintained. Multilevel degenerative disc disease with degenerative endplate changes and spurring have progressed since prior examination. Facet arthropathy throughout the lumbar spine. No acute fracture. No spondylolysis or spondylolisthesis. Ordering Provider: Earnest Guevara FINAL REPORT Dictated: 08/24/2024 9:36 am Jelani Strickland DO Signed (Electronic Signature): 08/24/2024 9:36 am Signed by: Jelani Strickland DO Transcribed by: ARTIS Technologist: DYANA [facility] ED Clinical Summaryon 2024 ED Clinical Summary ED Clinical Summary [address] [address] ED Clinical Summary Person Information Name: FARTUN [place]NEIDER [place] Age: 68 Years : 1955 Sex: Female Language: Luxembourger PCP: Marcelo Call DO Marital Status: Single MRN: Visit Id: Visit Reason: Jaw pain; Closed head injury without LOC; Fall; Facial injury; FALL Speciality: Acuity: 2 Enc Type: Emergency Med Service: Emergency Arrival: 08/23/2024 15:16:09 Discharge: 08/23/2024 18:01:43 LOS: 000 02:45 Checkin: 08/23/2024 15:16:09 Checkout: 08/23/2024 18:01:43 Dispo Type: Home (Routine DC) EVENTS: Event Name Event Status Request Date/Time Start Date/Time Complete Date/Time Arrive Complete 08/23/2024 15:16:09 08/23/2024 15:16:09 08/23/2024 15:16:09 Document Home Meds Request 08/23/2024 15:16:09 Triage Complete 08/23/2024 15:16:09 08/23/2024 15:21:00 08/23/2024 15:21:00 Bed Assign Complete 08/23/2024 15:16:09 08/23/2024 15:16:09 08/23/2024 15:16:09 Dr Exam Complete 08/23/2024 15:16:09 08/23/2024 15:22:16 08/23/2024 15:22:16 RN Exam Complete 08/23/2024 15:16:09 08/23/2024 15:34:28 08/23/2024 15:34:28 Registration Complete 08/23/2024 15:22:16 08/23/2024 15:33:23 08/23/2024 15:33:23 CT Complete 08/23/2024 15:31:27 08/23/2024 15:35:58 08/23/2024 15:57:02 X-Ray Complete 08/23/2024 15:31:27 08/23/2024 15:47:08 08/23/2024 16:13:34 Meds Admin Complete 08/23/2024 15:32:53 08/23/2024 16:12:39 Reg Complete Request 08/23/2024 15:33:23 Reg Bed Request Complete 08/23/2024 15:33:23 08/23/2024 15:33:23 08/23/2024 15:33:23 Fall Risk Request 08/23/2024 15:34:28 Trauma II Request 08/23/2024 15:39:28 X-Ray Complete 08/23/2024 15:46:26 08/23/2024 15:47:08 08/23/2024 16:13:34 Wet Read Request 08/23/2024 16:13:34 Meds Admin Complete 08/23/2024 17:22:56 08/23/2024 17:30:57 Discharge Complete 08/23/2024 17:24:12 08/23/2024 18:02:15 08/23/2024 18:02:15 Transfer Complete 08/23/2024 18:02:15 08/23/2024 18:02:15 08/23/2024 18:02:15 ADDRESS: [address] [place] [address] [address] [facility] [id number] PHYS DOC NOTES: MEDICAL INFORMATION: Prescriptions Given: Medications to Continue with No Changes Other Medications acetaminophen (acetaminophen 325 mg Tab) 1 Tablets By Mouth 3 times a day as needed for fever. Take 1 tablet by mouth three times a day as needed. Refills: 0. acetaminophen (Tylenol 325 mg Tab) 1 Tablets By Mouth 3 times a day. 1 tablet by mouth three times a day as needed. acetaminophen-oxycodone (acetaminophen-oxycodone 325 mg-5 mg Tab) 1 Tablets By Mouth every 12 hours as needed for pain. 30 day supply. Refills: 0. ascorbic acid (ascorbic acid 500 mg Tab) 1 Tablets By Mouth 2 times a day. Refills: 4. atorvastatin (atorvastatin 40 mg Tab) 1 Tablets By Mouth every day. Refills: 4. bisacodyl (bisacodyl 5 mg Oral EC Tab) 2 Tablets By Mouth Once as needed Constipation. buPROPion (BuPROPion (Eqv-Wellbutrin SR) 150 mg/12 hours oral tablet, extended release) 1 Tablets By Mouth 2 times a day. Refills: 4. carvedilol (carvedilol 12.5 mg Tab) 1 Tablets By Mouth 2 times a day. Refills: 4. celecoxib (CeleBREX 100 mg Cap) 1 Capsules By Mouth 2 times a day as needed Pain. diazepam (diazepam 2 mg Tab) 1 Tablets By Mouth 3 times a day. For 30 day supply. Refills: 0. dicyclomine (Bentyl 10 mg Cap) 1 Capsules By Mouth 4 times a day. Refills: 1. dulaglutide (dulaglutide 0.75 mg/0.5 mL subcutaneous solution) 0.75 Milligram Subcutaneous every week. Refills: 11. ferrous sulfate (ferrous sulfate 325 mg Tab) 1 Tablets By Mouth every day. gabapentin (gabapentin 300 mg Cap) 1 Capsules By Mouth 3 times a day. Refills: 1. gabapentin (gabapentin 600 mg Tab) 1 Tablets By Mouth 3 times a day. Refills: 2. insulin glargine (Lantus 100 units/mL Injection-Insulin) 15 Units Subcutaneous once a day (at bedtime). Refills: 5. levothyroxine (levothyroxine 112 mcg (0.112 mg) Tab) 1 Tablets By Mouth every day. liraglutide (Saxenda 18 mg/3 mL subcutaneous solution) 1.2 Milligram Subcutaneous every day. Replacing Trulicity due to backorder. Refills: 2. lisinopril (lisinopril 10 mg Tab) 1 Tablets By Mouth every day. Refills: 4. Misc Prescription ([employer] Prism Multi Blood Glucose Monitoring System) To check blood glucose levels. Refills: 2. 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 Refills: 0. Misc Prescription (sensors) francheska 2 sensors change q 14 days E11.42. Refills: 4. nystatin topical (nystatin Top 100,000 units/g Pwdr) 1 Application Topical 2 times a day. Refills: 2. omeprazole (omeprazole 20 mg Cap-DR) 1 Capsules By Mouth every day. Refills: 4. ondansetron (ondansetron 4 mg Tab) 1 Tablets By Mouth every 4 hours as needed Nausea/Vomiting. Refills: 3. oxybutynin (oxybutynin 5 mg ER Tab) 1 Tablets By Mouth every day. Refills: 4. paroxetine (paroxetine 40 mg Tab) 1 Tablets By Mouth every day. Refills: 0. polyethylene glycol 3350 (Miralax 3350 17 gram packet) 17 Gram By Mouth every day. (more content not included)... [facility] ED Note-Physicianon 08-24-19 ED Note-Physician ED Note-Physician Basic Information Time Seen: Earnest Guevara M.D. 08/23/2024 15:22 Chief Complaint c/o right sided facial and jaw pain after losing balance bending over to trash at 1230 and falling and hitting side of face on floor. pt denies LOC or blood thinners. EMS gave 50 mcg of fentanyl in route. denies pain anywhere else History of Present Illness The patient is a 68-year-old female who presented to the emergency room via EMS for fall. The patient states she was reaching in her wastebasket to pickle sorter something and throw it in the trash when she lost her balance and fell to the right side. The patient states she hit her head. The patient denies any loss of consciousness. She is complaining of pain on the right side of the face. The patient states she has chronic neck and lower back pain. She has chronic pain on her hips. The patient denies any dizziness or lightheadedness. She denies any shortness of breath. The patient denies any chest pain. She denies any abdominal pain. The patient denies taking any anticoagulant. The patient denies any other associated symptoms. Review of Systems Additional ROS info: Except as noted in the above Review of Systems and in the History of Present Illness all other systems have been reviewed and are negative or noncontributory. Physical Exam Vitals & Measurements T: 36.6 ???C(Oral) HR: 61(Monitored) RR: 17 BP: 174/77 SpO2: 97% HT: 162 cm WT: 73 kg BMI: 27.82 General: alert, mild distress Skin: warm, dry Head: There is a swelling and ecchymosis on the right maxillary, right mandibular and right side of the forehead. There is skin abrasion above the right eye. Neck: Trachea midline, mild tenderness of the cervical spine Eye: normal conjunctiva, sclera clear, PERRL, EOMI, vision unchanged, no hyphema ENMT: Oral mucosa moist, no pharyngeal erythema or exudate Cardiovascular: regular rate and rhythm Respiratory: Lungs CTA, respirations non labored, breath sounds equal Chest wall: no deformity,notenderness Gastrointestinal: soft, non distended, no tenderness, no guarding Back: Mild tenderness in the lumbosacral region which is chronic per patient, Normal ROM, Normal alignment, no step-offs. Extremities: no deformity, no trauma, mild tenderness bilateral hip which is chronic per patient. Neurological: Alert and oriented, CN II-XII intact, motor strength equal & normal bilaterally, sensation equal & normal bilaterally, speech normal, no focal neuro deficits Psychiatric: cooperative, affect appropriate for age Procedure [] Patient has one or more of the following conditions that are excluded from the measure (select all that apply): [] Patient has ventricular shunt [] Patient has brain tumor [] Patient is [] Patient has multi-system trauma [] Patient taking an antiplatelet medication (excluding aspirin) [] Head CT not ordered by emergency transitions rn care coordinator [] Head CT ordered for reasons other than trauma [x] Patient is 18 or older, presenting with minor blunt head trauma. Head CT (including cosigned orders) was ordered by an emergency transitions rn care coordinator for trauma because (select one or more):[SATISFIES MIPS PERFORMANCE]Reasons: [x] Patient is 65 or older [] Patient GCS < 15 [] Patient has focal neurologic deficit [] Patient has severe headache [] Patient is vomiting [] Severe/dangerousmechanism of injury was identified(select one or more): []MVA with: patient ejection, of another passenger, rollover, speed > 40mph, airbag deployment, stage driver or passenger on ATV or motorcycle [] pedestrian or bicyclist without helmet: struck my motorized vehicle, in bicycle crash [] fall > 3 feet or 5 stairs [] head struck by high-impact object (hammer, baseball, baseball bat, heavy object such as falling brick) [] Other: [] (ie. assault description) [] Patient has physical signs of basilar skull fracture present (including hemotympanum, raccoon eyes, CSF leakage from ear or nose, Ashby's sign) [] Patient suspected of taking anticoagulant medication [] Patient has thrombocytopenia [] Patient has coagulopathy [] Patient has loss of consciousness and (must select one of the following): []Headache []Short term memory deficit []Alcohol/drug intoxication []Evidence of trauma above the clavicles []Age 60 or older [] Post-traumatic seizure [] Patient has post-traumatic amnesia and (must select one of the following): []Headache []Short term memory deficit []Alcohol/drug intoxication []Evidence of trauma above the clavicles []Age 60 or older [] Post-traumatic seizure [] Patient is 18 or older, presenting with minor blunt head trauma. Head CT (including cosigned orders) was ordered by an emergency transitions rn care coordinator for trauma, no indication specified.[DOES NOT SATISFY MIPS PERFORMANCE] Medical Decision Making MEDICAL DECISION MAKING Number and Complexity of Problems Differential Diagnosis: [] [facility] Data External documents reviewed: [* (more content not included)... [facility] Comment on above: Result Comment: Elec tronically Signed By: Earnest Guevara M.D.\.br\Date and Time Signed: 08/23/24 19:29 EDT ED Patient Summaryon 025 ED Patient Summary ED Patient Summary [place] [id number] Patient Discharge Instructions Person Information Name: FARTUN SCHNEIDER Age: 68 Years Arrival Date: 08/23/2024 15:16:09 Discharge Diagnosis: 1:Closed head injury; 2:Facial contusion; 3:Skin abrasion Primary Care Physician: Marcelo Call DO Provider Information Primary Provider: Earnest Guevara M.D. Advanced Concrete Grinder Operator:None The exam and treatment you received in the Emergency Department were for an urgent problem and are not intended as complete care. It is important that you follow up with a doctor, nurse practitioner, or physician???s physician assistant surgery for ongoing care. If your symptoms become worse or you do not improve as expected and you are unable to reach your usual health care provider, you should return to the Emergency Department. We are available 24 hours a day. FARTUN SCHNEIDER has been given the following list of patient education materials, prescriptions and follow-up instructions: Follow-up Instructions: With: Address: When: Marcelo Link [address] [place], [place] [id number] Business (1) In 3 days 08/26/2024 Comments: Return to the emergency room if your headache gets worse, vomiting or any new symptoms. In the event that this physician does not participate in your insurance network, please consult with your insurance company to find a nearby participating provider. Patient Education Materials: Abrasion; Facial or Scalp Contusion; Head Injury, Adult A MESSAGE TO ALL PATIENTS REGARDING OPIOIDS PRESCRIPTION OPIOIDS: WHAT YOU NEED TO KNOW Prescription opioids can be used to help relieve lalghpam-ek-zctldl pain and are often prescribed following a surgery or injury, or for certain health conditions. These medications can be an important part of the treatment but also come with serious risks. It is important to work with your healthcare provider to make sure you are getting the safest, most effective care. WHAT ARE THE RISKS AND SIDE EFFECTS OF OPIOID USE? Prescription opioids carry serious risks of addiction and overdose, especially with prolonged use. An opioid overdose, often marked by slowed breathing, can cause sudden . The use of prescription opioids can have a number of side effects as well, even when taken as directed: ??? Tolerance???meaning you might need to take more of the medication for the same pain relief ??? Physical dependence???meaning you have symptoms of withdrawal when a medication is stopped ??? Increased sensitivity to pain ??? Constipation ??? Nausea, vomiting, and dry mouth ??? Sleepiness and dizziness ??? Confusion ??? Depression ??? Low levels of testosterone that can result in lower sex drive, energy, and strength ??? Itching and sweating RISKS ARE GREATER WITH: ??? History of drug misuse, substance use disorder, or overdose ??? Mental health conditions (such as depression or anxiety) ??? Sleep apnea ??? Older age (65 years and older) ??? Avoid alcohol while taking prescription opioids. Also, unless specifically advised by your health care provider, medications to avoid include: ??? Benzodiazepines (such as Xanax or Valium) ??? Muscle relaxants (such as Soma or Flexeril) ??? Hypnotics (such as Ambien or Lunesta) ??? Other prescription opioids KNOW YOUR OPTIONS Talk to your health care provider about ways to manage your pain that don???t involve prescription opioids. Some of these options may actually work better and have fewer risks and side effects. Options may include: ??? Pain relievers such as acetaminophen, ibuprofen, and naproxen ??? Some medication that are also used for depression or seizures ??? Physical therapy and exercise ??? Cognitive behavioral therapy, a psychological, goal-directed approach, in which patients learn how to modify physical, behavioral, and emotional triggers of pain and stress. IF YOU ARE PRESCRIBED OPIOIDS FOR PAIN: ??? Never take opioids in greater amounts or more often than prescribed. ??? Follow up with your primary health care provider. o Work together to create a plan on how to manage your pain. o Talk about ways to help manage your pain that don???t involve prescription opioids. o Talk about any and all concerns and side effects. ??? Help prevent misuse and abuse o Never sell or share prescription opioids. o Never use another person???s prescription opioids. ??? Store prescription opioids in a secure place and out of reach of others (this may include visitors, children, friends, and family). ??? Safely dispose of unused prescription opioids: Find your community drug take-back program or your pharmacy mail-back program, or flush them down the toilet, following guidance from the Food and Drug Administration (www.fda.gov/Drugs/Resource sForYou). ??? Visit www.cdc.gov/drugoverdose to learn a (more content not included)... [facility] Pre-Arrival Noteon Pre-Arrival Note Pre-Arrival Note Pre-Arrival Summary Name: , Current Date: 08/23/2024 15:16:40 EDT Gender: Female Date of : Age: 67 Pre-Arrival Type: EMS ETA: 08/23/2024 15:29:00 EDT Primary Care Physician: Presenting Problem: fall Pre-Arrival User: Agustin Garsia RN Referring Source: Location: [place] Completion Date/Time: 08/23/2024 14:59:00 [facility] Emergency Department Pre-Hospital Report Form Vital Signs: Pre-Hospital Report: Treatment in Route: Response to Treatment: Misc. Issues: [facility] Ambulatory Visit Summaryon 0 06-18-2024 Ambulatory Visit Summary Ambulatory Visit Summary ZACH FARTUN A :1955 Visit Date:06/18/2024 Ambulatory Visit Instructions Your Diagnosis Bipolar disorder Type 2 diabetes mellitus with hyperlipidemia Hyperlipidemia, Hyperlipidemia, unspecified Hypothyroidism Iron deficiency anemia FPC current use of insulin BMI 27.0-27.9,adult Non-smoker At risk for falls Your Care Team Attending Physician - Marcelo Call DO Primary Care Physician - Link Marcelo DUVALL This Is Your Medications List Misc Prescription ([employer] Multi Blood Glucose Monitoring System) Misc Prescription (reader) Misc Prescription (sensors) acetaminophen-oxycodone (acetaminophen-oxycodone 325 mg-5 mg Tab) ascorbic acid (ascorbic [...] mg Tab) gabapentin (gabapentin 300 mg Cap) gabapentin (gabapentin 600 mg Tab) insulin glargine (Lantus 100 units/mL Injection-Insulin) levothyroxine (levothyroxine 112 mcg (0.112 mg) Tab) lisinopril (lisinopril 10 mg Tab) nitrofurantoin (Macrobid 100 mg Cap) nystatin topical (nystatin Top 100,000 units/g Pwdr) omeprazole (omeprazole 20 mg Cap-DR) ondansetron (ondansetron 4 mg Tab) oxybutynin (oxybutynin 5 mg ER Tab) polyethylene glycol 3350 (Miralax 3350 17 gram packet) potassium chloride (potassium chloride 20 mEq ER Tab) trazodone (traZODONE 50 mg Tab) Procedures Performed Aspiration of hip joint (04/11/2023), Aspiration of hip joint (02/13/2023), Repair of fracture of hip by nailing using fluoroscopic guidance (12/20/2022), History of hemiarthroplasty of right hip (11/25/2022), Esophagogastroduodenoscopy (05/09/2022), Arthroscopy of shoulder (08/16/2020), Excision of mass of neck (03/11/2019), Arthroplasty of finger (03/10/2018), percutaneous pinning left hip (10/03/2014), left total knee replacement with hardware removal (12/07/2013), right total knee arthroplasty (06/08/2013), Right knee (12/14/2012), BASILAR ARTHROPLASTY OF THUMB, Cyst - diagnostic aspiration, ESWL of kidney, gallbladder removed, jaw surgery, left knee ORIF, RENY BSO - Total abdominal hysterectomy and bilateral salpingo-oophorectomy, 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. Discharge Vitals Heart Rate (Peripheral) 76 Respiratory Rate 18 Blood Pressure 130/78 Height 162.5 cm Height 64 in Weight 73.1 kg Weight 161.158 lb BMI 27.68 What to do next Scheduled Follow-Up Appointments Friday 1:40 PM EDT With: Marcelo Call DO Where: [facility] [address] [place] [address] 2024 11:00 AM EDT With: Where: [facility] [address] [place] [address]- You Need to Schedule the Following Appointments Follow Up with Marcelo Call DO, FAM When: Within 3 months Comments: 3 MONTH DIABETIC CHECKUP Where: [address] [place] [address]- Medications What How Much When Why Instructions Unchanged acetaminophen-oxycodone (acetaminophen-oxycodone 325 mg-5 mg Tab) 1 Tablets By [...] Pain Unchanged diazepam (diazepam 2 mg Tab) 1 Tablets By Mouth 3 times a day Depression with anxiety For 30 day supply Unchanged dicyclomine (Bentyl 10 mg Cap) 1 [...] Herpes zoster lesion BMI 26.0-26.9,adult Non-smoker Unchanged gabapentin (gabapentin 600 mg Tab) 1 Tablets By Mouth 3 times a day Unchanged insulin glargine (Lantus 100 units/ mL Injection-Insulin) 15 Units Subcutaneous Once a day (at bedtime) Unchanged levothyroxine (levothyroxine 112 mcg (0. (more content not included)... [facility] Family Medicine Office/Clini c Noteon 06-18-2024 Family Medicine Office/Clinic Note Family Medicine Office/Clinic Note Chief Complaint Chronic Condition follow up HPI Staff Patient here for Chronic Condition f/u Patient is here for follow up on Diabetes. How often are you checking your blood sugars? 2 times per day What are your average readings? Completed at [facility], patient notes its been good . Do you have any of the following symptoms? Vision problems? no GI-Nausea/committing/bloati ng? yes bloating Lightheadedness? no Paresthesias, Ulcerations or sores? yes extremities Foot Exam: Completed today Eye Exam: Needs to schedule U Microalb: 0.9 mg/dL (11/28/23 11:48:00) Hgb A1C %: 6.3 % High (11/24/22 00:57:00) Hgb A1c POC: 5.8 % (11/28/23 10:58:00) - Completed at [facility] 06/04/24 - 8.0 Patient is here for follow up on hypertension. How often are you checking your blood pressure? Doesn't check BP at home Do you have any of the following symptoms? Chest Pain? no Palpitations? no ALVARADO/SOB? no Headache? yes back of my head it's constant Peripheral Edema? no Light Headiness? no BUN: 14 mg/dL (02/13/23 06:24:00) Calcium Lvl: 8.4 mg/dL Low (12/20/22 19:36:00) Chloride: 112 mmol/L High (02/13/23 06:24:00) CO2: 21 mmol/L (02/13/23 06:24:00) Creatinine: 0.7 mg/dL (02/13/23 06:24:00) eGFR: 94 mL/min/1.73 m2 (02/13/23 06:24:00) Glucose Lvl: 242 mg/dL High (12/20/22 19:36:00) Potassium Lvl: 3.5 mmol/L (02/13/23 06:24:00) Sodium Lvl: 139 mmol/L (02/13/23 06:24:00) Lipid Panel: due Patient is here for follow up on Thyroid Disease. T4 Free: 1.23 ng/dL (11/24/22) TSH: 0.25 mcIU/mL Low (11/24/22 16:36:00) Follow up for Mental Status: Medication adherence- Yes, takes medication as prescribed Medication refill needed: no Suicidal thoughts-Not at this time Most recent PAUL: 21 Most recent PHQ9: 21 UDS: 10/2023 Med A05/24/23 - Patient is concerned that she feels like she has been forgetting stuff. Last mini-cog completed 11/28/23. [place]: 10/17/16, repeat in 10 years Dexa/Rex: per patient 2022 Flu: UTD AMW: Scheduled 11/11/24 History of Present Illness Patient presents today for DM recheck. - Ongoing issues with patient's findings of UTI due to incontinence - Changed over Ativan back to Diazepam since last visit at patient request Last A1c - 5.8% on 11/28/2023 Current medications - Dulaglutide 0.75mg subQ weekly, Lantus 15U subQ QHs Diabetic neuropathy - Yes, on gabapentin 300mg TID Diabetic retinopathy - None reported, up to date on eye appointments per patient report Diabetic education - Completed at prior practice Urine microalbumin - 11/28/2023 - 0.9 Diabetic foot exam - Due Statin - atorvastatin 40mg QD OARRS reviewed: Yes Medication Agreement updated: Yes Urine Drug Screen done: Yes 11/28/2023 Pill Count Done: No Today, patient states that she is doing well. She continues to have some conflicts with a staff member at [facility], she is pursueing legal action to get this resolved. She has concerns about her memory. She wants to change her DNR status today to DNR-CC. SHe has forms to address today. Review of Systems PHQ Score Initial Depression Screen Score: 6 SCORE Detailed Depression Screen Score: 15 Total Depression Screen Score: 21 ROS - Provider Constitutional: no fever, no chills Skin: yes rash, no lesions ENMT: no ear pain, [...] swings/depression. Physical Exam Vitals & Measurements HR: 76(Peripheral) RR: 18 BP: 130/78 SpO2: 97% HT: 162.5 cm HT: 64 in WT: 73.1 kg WT: 161.158 lb BMI: 27.68 General: Well developed, well nourished, in no acute distress Head: Normocephalic/atraumatic Eyes: Pupils equal, round, and reactive to [...] Grossly normal Skin: No petechiae, suspicious lesions, Mental Status: Alert and oriented x3. Normal mood and affect Diabetic Foot Exam Decreased Monofilament Sensation Foot: Left - Abnormal, Right - Abnormal Bunions/Foot Deformity: Left - Normal, Right - Normal Abnormal Pulse Foot: Left - Normal, Right - Normal Skin Lesions Foot: Left - Normal, Right - Normal Vibratory Sensation Foot: Left - A (more content not included)... [facility] Comment on above: Result Comment: Elec tronically Signed By: Marcelo Call DO\.br\Date and Time Signed: 06/18/24 14:02 EDT Ambulatory Visit Summaryon 0 05-24-2024 Ambulatory Visit Summary Ambulatory Visit Summary ZACH FARTUN A :1955 Visit Date:05/24/2024 Ambulatory Visit Instructions Your Diagnosis Bipolar disorder Diabetes mellitus with polyneuropathy FPC current use of insulin Type 2 diabetes mellitus with hyperlipidemia Hyperlipidemia, Hyperlipidemia, unspecified BMI 28.0-28.9,adult Non-smoker Acute cystitis Chronic GERD Your Care Team Attending Physician - Marcelo Call DO Primary Care Physician - Marcelo Call DO This Is Your Medications List Misc Prescription (Assure [employer] Multi Blood Glucose Monitoring System) Misc Prescription (reader) Misc Prescription (sensors) acetaminophen-oxycodone (acetaminophen-oxycodone 325 mg-5 mg Tab) ascorbic acid (ascorbic acid 500 mg Tab) atorvastatin (atorvastatin 40 mg Tab) bisacodyl (bisacodyl 5 mg Oral EC Tab) buPROPion (BuPROPion (Eqv-Wellbutrin SR) 150 mg/12 hours oral tablet, extended release) carvedilol (carvedilol 12.5 mg Tab) celecoxib (CeleBREX 100 mg Cap) ciprofloxacin (Cipro 500 mg Tab) dicyclomine (Bentyl 10 mg Cap) dulaglutide (dulaglutide 0.75 mg/0.5 mL subcutaneous solution) ferrous sulfate (ferrous sulfate 325 mg Tab) gabapentin (gabapentin 300 mg Cap) gabapentin (gabapentin 600 mg Tab) insulin glargine (Lantus 100 units/mL Injection-Insulin) levothyroxine (levothyroxine 112 mcg (0.112 mg) Tab) lisinopril (lisinopril 10 mg Tab) lorazepam (Ativan 1 mg Tab) metronidazole (Flagyl 500 mg Tab) nitrofurantoin (Macrobid 100 mg Cap) nystatin topical (nystatin Top 100,000 units/g Pwdr) omeprazole (omeprazole 20 mg Cap-DR) ondansetron (ondansetron 4 mg Tab) oxybutynin (oxybutynin 5 mg ER Tab) polyethylene glycol 3350 (Miralax 3350 17 gram packet) potassium chloride (potassium chloride 20 mEq ER Tab) trazodone (traZODONE 50 mg Tab) [Image Removed: STOP]Stop taking these medications diazepam (diazepam 2 mg Tab) paroxetine (paroxetine 40 mg Tab) Procedures Performed Aspiration of hip joint (04/11/2023), Aspiration of hip joint (02/13/2023), Repair of fracture of hip by nailing using fluoroscopic guidance (12/20/2022), History of hemiarthroplasty of right hip (11/25/2022), Esophagogastroduodenoscopy (05/09/2022), Arthroscopy of shoulder (08/16/2020), Excision of mass of neck (03/11/2019), Arthroplasty of finger (03/10/2018), percutaneous pinning left hip (10/03/2014), left total knee replacement with hardware removal (12/07/2013), right total knee arthroplasty (06/08/2013), Right knee (12/14/2012), BASILAR ARTHROPLASTY OF THUMB, Cyst - diagnostic aspiration, ESWL of kidney, gallbladder removed, jaw surgery, left knee ORIF, RENY BSO - Total abdominal hysterectomy and bilateral salpingo-oophorectomy, 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. Discharge Vitals Heart Rate (Peripheral) 60 Blood Pressure 124/76 Height 162.5 cm Height 64 in Weight 74.5 kg Weight 164.244 lb BMI 28.21 What to do next Scheduled Follow-Up Appointments Friday. 2024 10:40 AM EDT With: Marcelo Call DO Where: [facility] [place] [address] [place] [address] 2024 11:00 AM EDT With: Where: [facility] [address] [place] [address]- You Need to Schedule the Following Appointments Follow Up with Marcelo Call DO, FAM When: Within 4 weeks Comments: 4 WEEKS FOLLOWUP Where: [address] [place] [address]- Medications What How Much When Why Instructions New ciprofloxacin (Cipro 500 mg Tab) 1 Tablets By Mouth Every 12 hours Duration: 14 Days Pickup at [facility] New lorazepam (Ativan 1 mg Tab) 1 Tablets By Mouth 3 times a day as needed for for anxiety Pickup at [facility] New metronidazole (Flagyl 500 mg Tab) 1 Tablets By Mouth Every 12 hours Duration: 14 Days Pickup at [facility] Changed ondansetron (ondansetron 4 mg Tab) 1 Tablets By Mouth Every 4 hours as needed for Nausea/Vomiting Chronic GERD Pickup at [facility] Unchanged acetaminophen-oxycodone (acetaminophen-oxycodone 325 mg-5 mg Tab) 1 Tablets By [...] 0.5 mL subcutaneous solution) 0.75 Milligram Subcutaneous Kamryn (more content not included)... [facility] Family Medicine Office/Clini c Noteon 05-24-2024 Family Medicine Office/Clinic Note Family Medicine Office/Clinic Note Chief Complaint Medication HPI Staff Patient here to discuss medications - Would like to discuss stopping Valium and re-starting Ativan q6hrs. She would also like to discuss increasing Wellbutrin and Zofran. - Right lower abdomen is painful. Onset: 1-2 weeks. N/V and sharp/shooting pain. PAUL: 19 PHQ9: 14 UDS: 10/2023 Med Ag: completed today [place]: 10/17/16, repeat in 10 years Dexa/Rex: per pt 2022 Flu: per pt UTD AMW: Scheduled 11/11/24 History of Present Illness Patient presents today for DM recheck. - Ongoing issues with patient's findings of UTI due to incontinence Last A1c - 5.8% on 11/28/2023 Current medications - Dulaglutide 0.75mg subQ weekly, Lantus 15U subQ QHs Diabetic neuropathy - Yes, on gabapentin 300mg TID Diabetic retinopathy - None reported, up to date on eye appointments per patient report Diabetic education - Completed at prior practice Urine microalbumin - 11/28/2023 - 0.9 Diabetic foot exam - Due Statin - atorvastatin 40mg QD Today, patient states that she would like to discuss medications. Patient ocntinues to have nausea, right lower quadrant abdominal pain. She states that this is ongoing from her UTI. She has taken the Macrobid sent for her. She has been to the ER for evaluation of constipation at [facility]. She had CT scan done at their hospital. She has several medications she would like addressed. She has done better on Ativan than the Diazepam, would like to convert back. She was on 1mg TID prior to move to [facility]. She would like to resume this today. She also would like her Zofran changed from Q6hr to q4hr PRN. She states that she also would like to stop the Paxil. Review of Systems PHQ Score Initial Depression Screen Score: 6 SCORE ROS - Provider Constitutional: no fever, no chills Skin: yes rash, no lesions ENMT: no ear pain, [...] Exam Vitals & Measurements HR: 60(Peripheral) BP: 124/76 SpO2: 94% HT: 64 in HT: 162.5 cm WT: 74.5 kg WT: 164.244 lb BMI: 28.21 General: Well developed, well nourished, in no acute distress Head: Normocephalic/atraumatic Eyes: Pupils equal, round, and reactive to [...] Grossly normal Skin: No petechiae, suspicious lesions, Mental Status: Alert and oriented x3. Normal mood and affect Assessment/Plan 1. Bipolar disorder (F31.9: Bipolar disorder, unspecified) Stable today, continue current medications. Will cahnge Anxiety medications as per the HPI today. OARRS reviewed, no conflicts noted. Orders sent to [facility]. 2. Diabetes mellitus with polyneuropathy (E11.42: Type 2 diabetes mellitus with diabetic polyneuropathy) Due for A1c,due back in 4 weeks to have done. Doing excellent, no changes today. 3. 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 4. Type 2 diabetes mellitus with hyperlipidemia (E11.69: Type 2 diabetes mellitus with other specified complication) As per #2. 5. Hyperlipidemia, (E78.5: Hyperlipidemia, unspecified)Hyperlipidemia, unspecified Controlled on last labs, due to today for patient. Will order for her at this time. 6. BMI 28.0-28.9,adult (Z68.28: Body mass index [BMI] 28.0-28.9, adult) The standard range for ages 18 [...] 3008F Depression Screening Positive 3354F Influenza immunization administered or previously received 4274F Most recent diastolic blood pressure <80 mm Hg 3078F Patient screen for fall risk: no falls in last year or 1 fall with no injury in last year 1101F Systolic BP <130 mm Hg (Most Recent) 3074F 7. Non-smoker (Z78.9: Other specified health status) Stable. Ordered: Current tobacco non-user 1036F Acute cy (more content not included)... [facility] Comment on above: Result Comment: Elec tronically Signed By: Marcelo Call DO\.br\Date and Time Signed: 05/24/24 15:27 EST Pre-Visit Planningon 025 Pre-Visit Planning Pre-Visit Planning From: Pepe LEES, Judy To: Marcelo Call DO; Sent: 05/21/2024 07:56:16 EST Subject: Pre-Visit Planning Due Date/Time: 05/21/2024 07:56:00 EST Caller Name: FARTUN SCHNEIDER; Caller Number: H Wa Dr. Call, During a pre-visit planning chart review, I noted the following documentation in the medical record: Jimy Call, wanted to make you aware of a couple diagnoses on the [place] report. I did not see other supporting data. Arcardia report- Bipolar II disorder (F31.81) Persistent (Historical Claim) ??? Jun 17, 2023 ??? JOHN ARRINGTON [facility] [place] arteries of extremities, right leg (I70.201) Persistent (Historical Claim) ??? Dec 10, 2023 ??? DEBBIE GUERRERO Wa Dr. Call, wanted to make you aware of a couple diagnoses on the Kerrie report. I did not see other supporting data. -Other (please specify): I can update the problem list with your specified response if you would like. In responding to this request, please exercise your independent professional judgment. The fact that a question is asked does not imply that any particular answer is desired or expected. If you have any questions, please feel free to contact me at extension [phone]. Thank you! STAN Benson, RN, CCM, CCDS, CCDS-O CDI Fine Grader [address] [address] P: [phone] F: [phone] [email or web address] From: Marcelo Call DO To: Pepe LEES, Judy; Sent: 05/21/2024 12:57:05 EST Subject: RE: Pre-Visit Planning Caller Name: FARTUN SCHNEIDER; Caller Number: H I know that the bipolar disorder diagnosis is present, though I'm not sure it is type II bipolar disorder for her. I also know that the right leg atherosclerosis is normal. Let me know if there are questions on this information. Thanks! [facility] Ambulatory Visit Summaryon 0 04-27-2024 Ambulatory Visit Summary Ambulatory Visit Summary FARTUN SCHNEIDER :1955 Visit Date:04/27/2024 Ambulatory Visit Instructions Your Diagnosis Constipation in female Non-smoker BMI 27.0-27.9,adult Overweight (BMI 25.0-29.9) Your Care Team Attending Physician - JOSÉ VIRK CNP Primary Care Physician - Marcelo Call DO This Is Your Medications List Misc Prescription (Assure Prism Multi Blood Glucose Monitoring System) Misc Prescription (reader) Misc Prescription (sensors) acetaminophen-oxycodone (acetaminophen-oxycodone 325 mg-5 mg Tab) ascorbic acid (ascorbic [...] mg Tab) gabapentin (gabapentin 300 mg Cap) gabapentin (gabapentin 600 mg Tab) insulin glargine (Lantus 100 units/mL Injection-Insulin) levothyroxine [...] History of hemiarthroplasty of right hip (11/25/2022), Esophagogastroduodenoscopy (05/09/2022), Arthroscopy of shoulder (08/16/2020), Excision of mass of neck (03/11/2019), Arthroplasty of finger (03/10/2018), percutaneous pinning left hip (10/03/2014), left total knee replacement with hardware removal (12/07/2013), right total knee arthroplasty (06/08/2013), Right knee (12/14/2012), BASILAR ARTHROPLASTY OF THUMB, Cyst - diagnostic aspiration, ESWL of kidney, gallbladder removed, jaw surgery, left knee ORIF, RENY BSO - Total abdominal hysterectomy and bilateral salpingo-oophorectomy, 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. Discharge Vitals Temperature (Oral) 36.0 ???C Heart Rate (Peripheral) 66 Respiratory Rate 18 Blood Pressure 112/68 Height 162.5 cm Height 64 in Weight 72.8 kg Weight 160.496 lb BMI 27.57 What to do next Scheduled Follow-Up Appointments Friday. 2024 10:40 AM EDT With: Marcelo Call DO Where: [facility] [address] [place] [address] 2024 11:00 AM EDT With: Where: [facility] [address] [place] [address]- Medications What How Much When Why Instructions Unchanged acetaminophen-oxycodone (acetaminophen-oxycodone 325 mg-5 mg Tab) 1 Tablets By [...] Pain Unchanged diazepam (diazepam 2 mg Tab) 1 Tablets By Mouth 3 times a day Unchanged dicyclomine (Bentyl 10 mg Cap) 1 [...] Herpes zoster lesion BMI 26.0-26.9,adult Non-smoker Unchanged gabapentin (gabapentin 600 mg Tab) 1 Tablets By Mouth 3 times a day Unchanged insulin glargine (Lantus 100 units/ mL Injection-Insulin) 15 Units Subcutaneous Once a day (at bedtime) Unchanged levothyroxine (levothyroxine 112 mcg (0.112 mg) Tab) 1 Tablets By Mouth Every day Unchanged lisinopril (lisinopril 10 mg Tab) 1 Tablets By Mouth Every day HTN (hypertension) Unchanged Misc Prescription (Assure Prism Multi Blood Glucose Monitoring System) See instructions To check blood glucose levels Unchanged Misc Prescription (reader) See instructions 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 Unchanged Misc Prescription (sensors) See instructions francheska 2 sensors change q 1 (more content not included)... [facility] Medicine Office/Clini c Noteon 04-27-2024 Family Medicine Office/Clinic Note Family Medicine Office/Clinic Note [facility] Staff Fartun is a 68 year old female presenting for ER follow up ER followup: Records requested 04/26/24 Hospital: [facility] Visit date: 04/25/24 Symptoms the patient presented with: constipation Current concerns: she is bloated, BM was her last one History of Present Illness 68 year old patient of Sarai Call DO presents today for an ED f/u for constipation. She was seen at [facility] on 04/25/2024 for constipation. She was prescribed mag citrate at that time. She reports she drank 1/2 of bottle yesterday and the other 1/2 today. She reports she had a liquid stool yesterday and her first bowel movement today was loose. However, she reports she had a second formed stool today. She is requesting a prescription for MiraLax be sent to her pharmacy. Review of Systems PHQ Score Initial Depression Screen Score: 0 SCORE Physical Exam Vitals & Measurements T: 36.0 ???C(Oral) HR: 66(Peripheral) RR: 18 BP: 112/68 SpO2: 99% HT: 64 in HT: 162.5 cm WT: 72.8 kg WT: 160.496 lb BMI: 27.57 General: alert, no acute distress Skin: warm, dry Head: no trauma, normocephalic Neck: Trachea midline, no adenopathy, no tenderness Eye: normal conjunctiva, sclera clear Cardiovascular: regular rate and rhythm, normal peripheral perfusion Respiratory: Lungs CTA, respirations non labored Gastrointestinal: soft, non distended, no tenderness, no guarding; BS x 4 quadarants Back: No tenderness, Normal ROM, Normal alignment. Extremities: no deformity, no trauma Neurological: oriented x 4, LOC appropriate for age speech normal Psychiatric: cooperative, affect appropriate for age, normal judgement, normal psychiatric thoughts. Assessment/Plan 1. Constipation in female (K59.00: Constipation, unspecified) Encouraged to consume a minimum of 64 ounces of water daily Exercise daily as tolerated Start polyethylene glycol 17 gm daily Continue dicyclomine 10 mg po QID Continue bisacodyl 5mg two tabs po as needed Review of the CT of the abdomen from [facility] Review of the ED discharge summary f/u with pcp as scheduled Ordered: polyethylene glycol 3350, 17 gm, Oral, Daily, # 527 gm, Refills(s) 0, Pharmacy: [facility], 162.5, cm, 04/27/24 9:37:00 EST, Height/Length Dosing, 72.8, kg, 04/27/24 9:37:00 EST, Weight Dosing 2. Non-smoker (Z78.9: Other specified health status) Encouraged to continue is a non-smoker 3. BMI 27.0-27.9,adult (Z68.27: Body mass index [...] management will be followed at subsequent visits. 4. Overweight (BMI 25.0-29.9) (E66.3: Overweight) An explanation and discussion of advanced care planning for of end of life completed. Discussion included: assisting patient to designate a person to make decisions for the patient if the patient is unable to speak, types of medical care preferred and desired comfort level that is preferred. Verbal and written instructions were given to patient today. Handouts included the Patient plans to discuss with. Patient was offered assistance in completing documents. Upon completion of the document the patient will Follow-up No qualifying data available Patient Education Constipation, Adult, [id number]-im-[id number] Problem List/Past Medical History Ongoing At risk for falls Chronic GERD Chronic pain Closed subcapital fracture of right femur with routine healing, subsequent encounter Depression with anxiety Diabetes mellitus with polyneuropathy Dysphagia ESBL E. 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 Lower back pain Major depressive disorder, recurrent, in partial remission Obesity Overactive bladder Personal history of colonic polyps Smoker Type 2 diabetes mellitus with hyperlipidemia Historical Arthritis Bridgett esophagitis CMC arthritis, thumb, degenerative Diverticulitis Fibrocystic breast changes Herpes zoster lesion Irritable bowel syndrome Kidney Stones UTI (urinary tract infection) Procedure/Surgical History Aspiration of hip joint (04/11/2023), Aspiration of hip joint (02/13/2023), Repair of fracture of hip by nailing using fluoroscopic guidance (12/20/2022), History of hemiarthroplasty of right hip (11/25/2022), Esophagogastroduodenoscopy (05/09/2022), Arthroscopy of shoulder (08/16/2020), Excision of mass of neck (03/11/2019), Arthroplasty of finger (03/10/2018), percutaneous pinning left hip (10/03/2014), left total knee replacement with hardware removal (12/07/2013), right total knee arthroplasty (06/08/2013), Right knee (12/14/2012), BASILAR ARTHROPLASTY OF THUMB, Cyst - diagnostic aspiration, ESWL o (more content not included)... [facility] Comment on above: Result Comment: Elec tronically Signed By: SULLY RODRIGUEZ, JOSÉ Arnold\.br\Date and Time Signed: 04/27/24 10:18 EST [facility] UA (CLEAN/CATCH) MICROSC OPIC IF INDICATEon 03-29-2024 BILIRUBIN URINE Negative NEGATIVE [facility] BLOOD URINE TRACE-I NEGATIVE [facility] Clarity (U) CLEAR CLEAR [facility] Color (U) LT. YELLOW YELLOW [facility] GLUCOSE URINE UA Negative NEGATIVE mg/dL [facility] Interpretation and review of laboratory results Abnormal [facility] Ketones Ql (U) Negative NEGATIVE mg/dL [facility] Leukocyte esterase Test strip Ql (U) TRACE Abnormal NEGATIVE [facility] NITRITE URINE Negative NEGATIVE [facility] pH (U) 6.0 [pH] 5.0 - 9.0 [facility] PROTEIN URINE Negative NEG/TRACE mg/dL [facility] SPECIFIC GRAVITY URINE 1.010 1.005 - 1.025 [facility] URINE MICROSCOPIC INDICATED YES [facility] UROBILINOGEN URINE 0.2 EU/dL 0.2 - 1.0 EU/dL [facility]INISYNC [facility] Ambulatory Visit Summaryon 1 05-05-2023 Ambulatory Visit Summary Ambulatory Visit Summary FARTUN SCHNEIDER :1955 Visit Date:03/04/2024 Ambulatory Visit Instructions Your Diagnosis Type 2 diabetes mellitus with hyperlipidemia FPC current use of insulin Non-smoker Shingles rash BMI 29.0-29.9,adult Major depressive disorder, recurrent, in partial remission Your Care Team Attending Physician - Marcelo Call DO Primary Care Physician - Marcelo Call DO This Is Your Medications List Misc Prescription (Assure The Optima Multi Blood Glucose Monitoring System) Misc Prescription (reader) Misc Prescription (sensors) acetaminophen-oxycodone (acetaminophen-oxycodone 325 mg-5 mg Tab) ascorbic acid (ascorbic [...] mg Tab) gabapentin (gabapentin 300 mg Cap) gabapentin (gabapentin 600 mg Tab) insulin glargine (Lantus 100 units/mL Injection-Insulin) levothyroxine (levothyroxine 112 mcg (0.112 mg) Tab) lisinopril (lisinopril 10 mg Tab) nystatin topical (nystatin Top 100,000 units/g Pwdr) omeprazole (omeprazole 20 mg Cap-DR) ondansetron (ondansetron 4 mg Tab) oxybutynin (oxybutynin 5 mg ER Tab) paroxetine (paroxetine 40 mg Tab) potassium chloride (potassium chloride 20 mEq ER Tab) trazodone (traZODONE 50 mg Tab) valacyclovir (Valtrex 1 g Tab) Procedures Performed Aspiration of hip joint (04/11/2023), Aspiration of hip joint (02/13/2023), Repair of fracture of hip by nailing using fluoroscopic guidance (12/20/2022), History of hemiarthroplasty of right hip (11/25/2022), Esophagogastroduodenoscopy (05/09/2022), Arthroscopy of shoulder (08/16/2020), Excision of mass of neck (03/11/2019), Arthroplasty of finger (03/10/2018), percutaneous pinning left hip (10/03/2014), left total knee replacement with hardware removal (12/07/2013), right total knee arthroplasty (06/08/2013), Right knee (12/14/2012), BASILAR ARTHROPLASTY OF THUMB, Cyst - diagnostic aspiration, ESWL of kidney, gallbladder removed, jaw surgery, left knee ORIF, RENY BSO - Total abdominal hysterectomy and bilateral salpingo-oophorectomy, 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. Discharge Vitals Heart Rate (Peripheral) 65 Blood Pressure 122/79 Height 162.5 cm Height 64 in Weight 79.1 kg Weight 174.385 lb BMI 29.96 What to do next Scheduled Follow-Up Appointments Friday 10:40 AM EDT With: Marcelo Call DO Where: [place] [facility] [address] [place] [address] 2024 11:00 AM EDT With: Where: [address] [place] [address]- Medications What How Much When Why Instructions New valacyclovir (Valtrex 1 g Tab) 1 Tablets By Mouth Every 8 hours Duration: 7 Days Pickup at [facility] Changed gabapentin (gabapentin 300 mg Cap) 1 Capsules By Mouth 3 times a day Diabetes mellitus with polyneuropathy Chronic GERD Chronic pain Depression with anxiety HTN (hypertension) Hypothyroidism Herpes zoster lesion BMI 26.0-26.9,adult Non-smoker Changed gabapentin (gabapentin 600 mg Tab) 1 Tablets By Mouth 3 times a day Pickup at [facility] Unchanged acetaminophen-oxycodone (acetaminophen-oxycodone 325 mg-5 mg Tab) 1 Tablets By [...] Tablets By Mouth Every day Unchanged insulin glargine (Lantus 100 units/ mL Injection-Insulin) 15 Units Subcutaneous Once a day (at bedtime) Unchanged levothyroxine (levothyroxine 112 mcg (0.112 mg) Tab) 1 Tablets By Mouth Every day Unchanged lisinopril (lisinopril 10 mg Tab) 1 Tablets By Mouth Every day HTN (hypertension) [facility]changed [facility] Pres[facility] (Assur (more content not included)... [facility] Family Medicine Office/Clini c Noteon 03-04-2024 Family Medicine Office/Clinic Note Family Medicine Office/Clinic Note Chief Complaint Chronic condition f/u HPI Staff Patient here for Chronic Condition f/u Patient is here for follow up on Diabetes. How often are you checking your blood sugars? 3 times per day What are your average readings?100's Do you have any of the following symptoms? Vision problems? no GI-Nausea/committing/bloati ng? no Lightheadedness? no Paresthesias, Ulcerations or sores? no Lisinopril, aspirin, statin therapy? Yes Foot Exam: UTD Eye Exam: per pt July 2023, In [facility] Microalb: 0.9 mg/dL (11/28/23 11:48:00) Hgb A1C %: 6.3 % High (11/24/22 00:57:00) Hgb A1c POC: 5.8 % (11/28/23 10:58:00) - DUE Patient is here for follow up on hypertension. How often are you checking your blood pressure? Doesnt check BP at home Do you have any of the following symptoms? Chest Pain? no Palpitations? no ALVARADO/SOB? no Headache? no Peripheral Edema? no Light Headiness? no BUN: 14 mg/dL (02/13/23 [...] here for follow up on Thyroid Disease. T4 Free: 1.23 ng/dL (11/24/22) TSH: 0.25 mcIU/mL Low (11/24/22 16:36:00) Pt does note some bumps on right shoulder blade and left shoulder blader that are red, burn and itch. Pt states she has been putting cream on them to help with itching. Pt noticed them 2 weeks ago. - Patient would also like her kidney function labs completed. [place]: 10/17/16, repeat in 10 years Dexa/Rex: per pt 2022 Flu: per pt UTD History of Present Illness Patient presents today for DM recheck. Last A1c - Completed at outside location, [...] 40mg QD Today, patient states that she has a resolving rash on her shoulder. She states that this is painful, burning, and has spots that are red. She is using hydrocortisone cream on the rash with some mild benefit. She would like this evaluated today. Review of Systems PHQ Score Initial Depression Screen Score: 2 SCORE ROS - Provider Constitutional: no fever, no chills Skin: yes rash, no lesions ENMT: no ear pain, [...] swings/depression. Physical Exam Vitals & Measurements HR: 65(Peripheral) BP: 122/79 SpO2: 96% HT: 64 in HT: 162.5 cm WT: 79.1 kg WT: 174.385 lb BMI: 29.96 General: Well developed, well nourished, in no acute distress Head: Normocephalic/atraumatic Eyes: Pupils equal, round, and reactive to [...] Grossly normal Skin: No petechiae, suspicious lesions, Mental Status: Alert and oriented x3. Normal mood and affect Assessment/Plan 1. Type 2 diabetes mellitus with hyperlipidemia (E11.69: Type 2 diabetes mellitus with other specified complication) POC A1c is not available. We will order for [facility] to draw. Recheck patient in 3 months. 2. FPC current use of insulin (Z79.4: FPC (current) use of insulin) Stable on current regimen. Recheck patient in 3 months as per #1. 3. Non-smoker (Z78.9: Other specified health status) Stable. Ordered: Current tobacco non-user 1036F 4. Shingles rash (B02.9: Zoster without complications) Will cover with Valtrex today for patient. Will also provide increase in gabapentin to 600mg TID PRN for pain related to rash. Recheck at followup. 5. BMI 29.0-29.9,adult (Z68.29: Body mass index [BMI] 29.0-29.9, adult) The standard range for ages 18 and older is >=18.5 and < 25 kg/m2. Your BMI today was above this range (more content not included)... [facility] Comment on above: Result Comment: Elec tronically Signed By: Marcelo Call DO\.br\Date and Time Signed: 03/04/24 13:15 EST Pre-Visit Planningon 024 Pre-Visit Planning Pre-Visit Planning From: Leila Post To: Marcelo Call DO; Sent: 03/03/2024 12:30:33 EST Subject: Pre-Visit Planning Due Date/Time: 03/03/2024 12:30:00 EST Caller Name: FARTUN SCHNEIDER; Caller Number: H Wa Dr. Call. During a pre-visit planning chart review, I noted the following documentation in the medical record: Current Problem List: Depression with anxiety (Other specified anxiety disorders) and Insomnia. Current Medication List: bupropion, diazepam, paroxetine, and trazodone. PHQ-9 Score: =19 on 12/30/2023. 04/14/2023 [facility] Records (page 7): Bipolar disorder, unspecified. [...] feel free to contact me at extension [phone]. Thank you! Leila Post LPN Clinical Wire Stitcher Operator [address] [address] Extension: [phone] [email or web address] From: Marcelo Call DO To: Leila Post; Sent: 03/04/2024 10:55:58 EST Subject: RE: Pre-Visit Planning Caller Name: FARTUN SCHNEIDER; Caller Number: H I'm fine with Major depressive disorder, recurrent, in partial remission. Thanks! [facility] XR Hip 2-3 Views Righton XR [...] mGy = na DAP = na [facility] XR Knee Complete 4+ Views Tess [...] ARTIS Technologist: JAVIER Technical Comments Radiation Dose: Kadeejay in mGy = na DAP = na [facility] C Urineon 01-02-2024 Bacteria identified Cx [...] or tested, I=Intermediate, ESBL=Extended spectrum beta-lactamase, R=Resistant, TFG=Thymidine-dependent strain, ALBA=Beta-lactamase positive, ITZEL=mcg/m;(mg/L), S*=Predicted susceptible interp, [...] Locations R1: This test was performed at: [facility], [address] [place] [address], [address] , , [facility] Comment on above: Performed By: #### [id number] #### [facility] [address] [place] [address] Performed By: #### [id number] ####[facility] [address] [place] [id number] Ambulatory Visit Summaryon 1 Ambulatory Visit Summary Ambulatory Visit Summary FARTUN SCHNEIDER :1955 Visit Date:12/30/2023 Ambulatory Visit Instructions Your Diagnosis Dysuria Accidental fall Overactive bladder BMI 29.0-29.9,adult Non-smoker Obesity At risk for falls Your Care Team Attending Physician - Marcelo Call DO Primary Care Physician - Marcelo Call DO This Is Your Medications List [facility] [place] [place] Prescription (reader) Misc Prescription (sensors) acetaminophen-oxycodone (acetaminophen-oxycodone 325 mg-5 mg Tab) ascorbic acid (ascorbic [...] History of hemiarthroplasty of right hip (11/25/2022), Esophagogastroduodenoscopy (05/09/2022), Arthroscopy of shoulder (08/16/2020), Excision of mass of neck (03/11/2019), Arthroplasty of finger (03/10/2018), percutaneous pinning left hip (10/03/2014), left total knee replacement with hardware removal (12/07/2013), right total knee arthroplasty (06/08/2013), Right knee (12/14/2012), BASILAR ARTHROPLASTY OF THUMB, Cyst - diagnostic aspiration, ESWL of kidney, gallbladder removed, jaw surgery, left knee ORIF, RENY BSO - Total abdominal hysterectomy and bilateral salpingo-oophorectomy, 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. Discharge Vitals Heart Rate (Peripheral) 60 Blood Pressure 106/64 Height 162.5 cm Height 64 in Weight 79.1 kg Weight 174.02 lb BMI 29.96 What to do next Scheduled Follow-Up Appointments Friday 10:00 AM EST With: Marcelo Call DO Where: [facility] [address] [place] [address] 2024 11:00 AM EDT With: Where: [facility] [address] [place] [address]- You Need to Schedule the Following Appointments Follow Up with Marcelo Call DO, FAM When: Within 4 weeks Comments: 4 WEEKS FOLLOWUP Where: [address] [place] [address]- You Need to Complete the Following XR Hip 2-3 Views Right, 12/30/23, Routine, Order for future visit, Transport Mode: Ambulatory, Reason: Fall, No, Accidental fall, pp_set_radiology_subspecial ty, Not Required, Lyle Denney XR Knee Complete 4+ Views Right, 12/30/23, Routine, Order for future visit, Transport Mode: Ambulatory, Reason: Fall, No, Accidental fall, pp_set_radiology_subspecial ty, Not Required, Lyle Denney Medications What How Much When Why Instructions New ciprofloxacin (ciprofloxacin 500 mg Tab) 1 Tablets By Mouth Every 12 hours Duration: 10 Days Pickup at [facility] Changed trazodone (traZODONE 50 mg Tab) 1 Tablets By Mouth Once a day (at bedtime) Pickup at [facility] Unchanged acetaminophen-oxycodone (acetaminophen-oxycodone 325 mg-5 mg Tab) 1 Tablets By [...] polyneuropathy Chr (more content not included)... [facility] Family Medicine Office/Clini c Noteon 12-30-2023 Family [...] tablets of her Trazodone. _ Refill: Nystatin [place]: 10/17/16, repeat in 10 years Dexa/Rex: per pt 2022 AMW: UTD Flu: per pt UTD History of Present Illness Patient presents today for urinary issues. Patient states that she has had urinary pressure and pain with urination for over a week. We received messages from [employer] to have UA with culture done, but [...] well nourished, in no acute distress Head: Normocephalic/atraumatic Eyes: Pupils equal, round, and reactive to [...] Urnls Dip Stick Auto w/o Microscopy POC 36916 2. Accidental fall (W19.XXXA: Unspecified fall, initial [...] w/injury 1100F Falls plan of care documented 0518 Orders: ciprofloxacin, 500 mg = 1 tab(s), Oral, q12hr, X 10 day(s), # 20 tab(s), Refills(s) 0, Pharmacy: [facility], 162.5, cm, 12/30/23 17:04:00 EDT, Height/Length Dosing, 79.1, kg, 12/30/23 17:04:00 EDT, Weight Dosing trazodone, 50 mg = 1 tab(s), Oral, Once a day (at bedtime), # 30 tab(s), Refills(s) 5, Pharmacy: [facility] (more content not included)... [facility] Comment on above: Result Comment: Elec tronically Signed By: Marcelo Call DO\.br\Date and Time Signed: 12/30/23 17:33 EDT CHEMISTRYOrdered By: SYSTEM SYSTEM on 11-28-2023 Albumin DL <= 20 mg/L (U) [Mass/Vol] 0.9 mg/dL Normal 0.0 - 1.9 mg/dL Remisol Chem U [employer] 11-28-2023 Albumin DL <= 20 mg/L (U) [Mass/Vol] 0.9 mg/dL Normal 0.0-1.9 [facility] Comment on above: Performed By: #### [id number] [facility] [address] [place] [address] CHEMISTRYOrdered By: SYSTEM SYSTEM on 02-13-2023 Anion gap [Moles/Vol] 10 mmol/L Normal 6 - 16 mEq/L [facility] [facility] Remisol Chloride [Moles/Vol] 112 mmol/L High 101 - 1 11 mmol/L [facility] [place] Remisol CO2 [Moles/Vol] 21 mmol/L Normal 21 - 31 mmol/L [facility] [place] Remisol Creatinine [Mass/Vol] 0.7 mg/dL Normal 0.5 - 1.3 mg/dL [facility] [place] Remisol GFR/1.73 sq M.predicted among non-blacks MDRD (S/P/Bld) [Vol rate/Area] 94 mL/min/1.73 m2 Normal >=59mL/min /1.73 m2 [facility] [place] [facility] Chem S Comment on above: Interpretive Data: C hronic kidney disease could be indicated at eGFR's of less than 60 mL/min/1.73m2. Kidney failure is indicated at less than 15 mL/min/1.73m2. Glucose post fast [Mass/Vol] 147 mg/dL High 55 - 99 mg/dL [facility] [place] Remisol Potassium [Moles/Vol] 3.5 mmol/L Normal 3.5 - 5.3 mmol/L [facility] [place] Remisol Sodium [Moles/Vol] 139 mmol/L Normal 135 - 145 mmol/L [facility] [place] Remisol Urea nitrogen [Mass/Vol] 14 mg/dL Normal 5 - 21 mg/dL [facility] [place] Remisol CHEMISTRYOrdered By: Lab ROP User on 02-13-2023 Glucose [Mass/Vol] 149 mg/dL High 55 - 99 mg/dL [facility] [place] POC Subsection POC Username NELLY ROJAS Invalid Interpretation Code [facility] [place] POC Subsection Sodium [Moles/Vol] [id number] mmol/L Invalid Interpretation Code [facility] [place] POC Subsection Sodium [Moles/Vol] [id number] mmol/L Invalid Interpretation Code [facility] [place] POC Subsection HEMATOLOGYOrdered By: Gail Felix on 02-13-2023 Erythrocyte distribution width (RBC) [Ratio] 17.0 % High 10.9 - 14.2 % [facility] [place] Hematocrit (Bld) [Volume fraction] 30.8 % Low 34.0 - 46.0 % [facility] [place] Hemoglobin (Bld) [Mass/Vol] [...] Blood Cells No organisms seen. [facility] CHEMISTRYOrdered By: Temitope ROP Bonnie on 12-24-2022 Glucose [Mass/Vol] 102 mg/dL High 55 - 99 mg/dL [facility] POC Subsection Comment on above: Result Comment: Fausto CHAUDHARY POC Username IRINA JANE Invalid Interpretation Code [facility] POC Subsection Sodium [Moles/Vol] [id number] mmol/L Invalid Interpretation Code [facility] POC Subsection Sodium [Moles/Vol] 534102626 mmol/L Invalid Interpretation Code [facility] POC Subsection Glucose [Mass/Vol] 194 mg/dL High 55 - 99 mg/dL [facility] POC Subsection Comment on above: Result Comment: Fausto CHAUDHARY POC Username IRINA JANE Invalid Interpretation Code [facility] POC Subsection Sodium [Moles/Vol] [id number] mmol/L Invalid Interpretation Code [facility] POC Subsection Sodium [Moles/Vol] 791191161 mmol/L Invalid Interpretation Code [facility] POC Subsection Glucose [Mass/Vol] 130 mg/dL High 55 - 99 mg/dL [facility] POC Subsection Comment on above: Result Comment: Fausto rubi RN/ POC Username ANTOLIN SHEPPARD Invalid Interpretation Code [facility] [place] POC Subsection Sodium [Moles/Vol] [id number] mmol/L Invalid Interpretation Code [facility] [place] POC Subsection Sodium [Moles/Vol] [id number] mmol/L Invalid Interpretation Code [facility] [place] [place] POC Subsection CHEMISTRYOrdered By: SYSTEM SYSTEM on 12-23-2022 Anion gap [Moles/Vol] 1 mmol/L Low 6 - 16 mEq/L [facility] [place] Remisol Chloride [Moles/Vol] 119 mmol/L High 101 - 1 11 mmol/L [facility] [place] Remisol CO2 [Moles/Vol] 25 mmol/L Normal 21 - 31 mmol/L [facility] [place] Remisol Creatinine [Mass/Vol] 0.7 mg/dL Normal 0.5 - 1.3 mg/dL [facility] [place] Remisol GFR/1.73 sq M.predicted among non-blacks MDRD (S/P/Bld) [Vol rate/Area] 94 mL/min/1.73 m2 Normal >=59mL/min /1.73 m2 [facility] [place] Chem S Comment on above: Interpretive Data: C hronic kidney disease could be indicated at eGFR's of less than 60 mL/min/1.73m2. Kidney failure is indicated at less than 15 mL/min/1.73m2. Potassium [Moles/Vol] 4.0 mmol/L Normal 3.5 - 5.3 mmol/L [facility] [place] Remisol Sodium [Moles/Vol] 141 mmol/L Normal 135 - 145 mmol/L [facility] [place] Remisol Urea nitrogen [Mass/Vol] 15 mg/dL Normal 5 - 21 mg/dL [facility] [place] Remisol HEMATOLOGYOrdered By: SYSTEM SYSTEM on 12-23-2022 Basophils/100 WBC (Bld) 0.5 % Normal 0.0 - 2.0 % [facility] Basophils/Leukocytes Auto (Bld) [Pure # fraction] 0.0 E9/L Normal 0.0 - 0.2 E9/L [facility] Eosinophils/100 WBC (Bld) 5.0 % Normal 0.0 - 8.0 % [facility] Eosinophils/Leukocyte s Auto (Bld) [Pure # fraction] 0.3 E9/L Normal 0.0 - 0.5 E9/L [facility] Lymphocytes/100 WBC (Bld) 23.3 % Normal 14.0 - 50.0 % [facility] Lymphocytes/Leukocyte s Auto (Bld) [Pure # fraction] 1.5 E9/L Normal 1.0 - 4.0 E9/L [facility] Monocytes/100 WBC (Bld) 14.2 % High 4.0 - 14.0 % [facility] Monocytes/Leukocytes Auto (Bld) [Pure # fraction] 0.9 E9/L Normal 0.2 - 1.0 E9/L [facility] Neutrophils/100 WBC (Bld) 57.0 % Normal 36.0 - 75.0 % [facility] Neutrophils/Leukocyte s Auto (Bld) [Pure # fraction] 3.6 E9/L Normal 2.0 - 7.5 E9/L [facility] HEMATOLOGYOrdered By: David Gasca on 12-23-2022 Erythrocyte distribution width (RBC) [Ratio] 17.4 % High 10.9 - 14.2 % [facility] Hematocrit (Bld) [Volume fraction] 21.5 % Low 34.0 - 46.0 % [facility] Hemoglobin (Bld) [Mass/Vol] 7.1 g/dL Low 12.0 - 16.0 gm/dL [facility] [...] [facility] CHEMISTRYOrdered By: SYSTEM SYSTEM on 12-22-2022 Anion gap [Moles/Vol] 5 mmol/L Low 6 - 16 mEq/L [facility] Remisol Chloride [Moles/Vol] 115 mmol/L High 101 - 1 11 mmol/L [facility] Remisol CO2 [Moles/Vol] 23 mmol/L Normal 21 - 31 mmol/L [facility] Remisol Creatinine [Mass/Vol] 0.9 mg/dL Normal 0.5 - 1.3 mg/dL [facility] Remisol GFR/1.73 sq M.predicted among non-blacks MDRD (S/P/Bld) [Vol rate/Area] 70 mL/min/1.73 m2 Normal >=59mL/min /1.73 m2 [facility] [place] Chem S Comment on above: Interpretive Data: C hronic kidney disease could be indicated at eGFR's of less than 60 mL/min/1.73m2. Kidney failure is indicated at less than 15 mL/min/1.73m2. Potassium [Moles/Vol] 3.7 mmol/L Normal 3.5 - 5.3 mmol/L [facility] Remisol Sodium [Moles/Vol] 139 mmol/L Normal 135 - 145 mmol/L [facility] Remisol Urea nitrogen [Mass/Vol] 21 mg/dL Normal 5 - 21 mg/dL [facility] Remisol HEMATOLOGYOrdered By: SYSTEM SYSTEM on 12-22-2022 Basophils/100 WBC (Bld) 0.5 % Normal 0.0 - 2.0 % [facility] Basophils/Leukocytes Auto (Bld) [Pure # fraction] 0.0 E9/L Normal 0.0 - 0.2 E9/L [facility] Eosinophils/100 WBC (Bld) 1.1 % Normal 0.0 - 8.0 % [facility] Eosinophils/Leukocyte s Auto (Bld) [Pure # fraction] 0.1 E9/L Normal 0.0 - 0.5 E9/L [facility] Lymphocytes/100 WBC (Bld) 20.4 % Normal 14.0 - 50.0 % [facility] Lymphocytes/Leukocyte s Auto (Bld) [Pure # fraction] 1.5 E9/L Normal 1.0 - 4.0 E9/L [facility] Monocytes/100 WBC (Bld) 11.4 % Normal 4.0 - 14.0 % [facility] Monocytes/Leukocytes Auto (Bld) [Pure # fraction] 0.9 E9/L Normal 0.2 - 1.0 E9/L [facility] Neutrophils/100 WBC (Bld) 66.6 % Normal 36.0 - 75.0 % [facility] Neutrophils/Leukocyte s Auto (Bld) [Pure # fraction] 5.0 E9/L [...] 337.0 E9/L Normal 150.0 - 500.0 E9/L [facility] RBC (Bld) [#/Vol] 2.5 E12/L Low 4.3 - 5.9 E12/L [facility] WBC corrected for nucl RBC Auto (Bld) [#/Vol] 7.4 E9/L Normal 4.0 - 11.0 E9/L [facility] CHEMISTRYOrdered By: SYSTEM SYSTEM on 12-21-2022 Anion gap [Moles/Vol] 7 mmol/L Normal 6 - 16 mEq/L [facility] Remisol Chloride [Moles/Vol] 112 mmol/L High 101 - 1 11 mmol/L [facility] Remisol CO2 [Moles/Vol] 24 mmol/L Normal 21 - 31 mmol/L [facility] Remisol Creatinine [Mass/Vol] 1.1 mg/dL Normal 0.5 - 1.3 mg/dL [facility] Remisol GFR/1.73 sq M.predicted among non-blacks MDRD (S/P/Bld) [Vol rate/Area] 55 mL/min/1.73 m2 Low >=59mL/min /1.73 m2 [facility] [place] Chem S Comment on above: Interpretive Data: C hronic kidney disease could be indicated at eGFR's of less than 60 mL/min/1.73m2. Kidney failure is indicated at less than 15 mL/min/1.73m2. Potassium [Moles/Vol] 5.2 mmol/L Normal 3.5 - 5.3 mmol/L [facility] [...] Normal 0.0 - 8.0 % [facility] Eosinophils/Leukocyte s Auto (Bld) [Pure # fraction] 0.0 E9/L Normal 0.0 - 0.5 E9/L [facility] Lymphocytes/100 WBC (Bld) 6.5 % Low 14.0 - 50.0 % [facility] Lymphocytes/Leukocyte s Auto (Bld) [Pure # fraction] 0.4 E9/L Low 1.0 - 4.0 E9/L [facility] Monocytes/100 WBC (Bld) 8.7 % Normal 4.0 - 14.0 % [facility] Monocytes/Leukocytes Auto (Bld) [Pure # fraction] 0.6 E9/L Normal 0.2 - 1.0 E9/L [facility] Neutrophils/100 WBC (Bld) 84.7 % High 36.0 - 75.0 % [facility] Neutrophils/Leukocyte s Auto (Bld) [Pure # fraction] 5.8 E9/L [...] 2.7 E12/L Low 4.3 - 5.9 E12/L [facility] WBC corrected for nucl RBC Auto (Bld) [#/Vol] 6.8 E9/L Normal 4.0 - 11.0 E9/L [facility] BLOOD BANKOrdered By: Kirstin King on 12-20-2022 ABO/Rh Interp Positive Invalid Interpretation Code [facility] BB Subsection ABSC Gel Interp Negative (12/20/22 12:15 PM) Normal [facility] BB Subsection CHEMISTRYOrdered By: SYSTEM SYSTEM on 12-20-2022 Calcium [Mass/Vol] 8.4 mg/dL Low 8.9 - 11. 1 mg/dL [facility] Remisol CK [Catalytic activity/Vol] 57 [iU]/d Normal 14 - 261 Int._Unit/ L [facility] Remisol Glucose [Mass/Vol] 242 mg/dL High [...] 166 mg/dL Normal 55 - 199 mg/dL [facility] Remisol Comment [...] Normal 0 - 8 % [facility] Eosinophils/Leukocyte s Manual cnt (Bld) [Pure # fraction] 0.1 E9/L Normal 0.0 - 0.5 E9/L [facility] Lymphocytes/100 WBC (Bld) 17 % Normal 14 - 50 % [facility] Lymphocytes/Leukocyte s Manual cnt (Bld) [Pure # fraction] 1.0 E9/L Normal 1.0 - 4.0 E9/L [facility] Monocytes/100 WBC (Bld) 9 % Normal 4 - 14 % [facility] Monocytes/Leukocytes Manual cnt (Bld) [Pure # fraction] 0.5 E9/L Normal 0.2 - 1.0 E9/L [facility] Neutrophils/Leukocyte s Auto (Bld) [Pure # fraction] 4.2 E9/L Normal 2.0 - 7.5 E9/L [facility] Sed Rate Automated 87 mm/h High 0 - 34 mm/hr [facility] Segmented neutrophils/100 WBC (Bld) 72 % Normal 36 - 75 % [facility] Variant lymphocytes LM Ql (Bld) 0 % Normal <=0% [facility] No Panel InformationOrdered By: Pita Butterfield on 12-20-2022 GS 2+ White Blood Cells 1+ Gram Positive Rods Occassional crystals seen on the slide [facility] Wound Culture 1+ Gram Positive Jyotsna s resembling diphtheroids [facility] GS 1+ White Blood Cells 2+ Gram Positive Rods Occassional crystals seen on the slide [facility] Wound Culture 1+ Gram Positive Jyotsna s resembling diphtheroids [facility] No Panel InformationOrdered By: [facility] MI[facility] on 12-19-2022 Blood Culture Charcoal No growth at 4 days. Final to follow at 7 days. [facility] CHEMISTRYOrdered By: Lab ROP User on 11-29-2022 Glucose [Mass/Vol] 209 mg/dL High 55 - 99 mg/dL [facility] POC Subsection Comment on above: Result Comment: Fausto rubi RN/ POC Device SN [id number] Invalid Interpretation Code [facility] POC Subsection POC User ID [id number] Invalid Interpretation Code [facility] POC Subsection POC Username STEPHANIE JANE Invalid Interpretation Code [facility] POC Subsection Glucose [Mass/Vol] 147 mg/dL High 55 - 99 mg/dL [facility] [place] POC Subsection Comment on above: Result Comment: Fausto rubi RN/ POC Device SN [id number] Invalid Interpretation Code [facility] POC Subsection POC User ID [id number] Invalid Interpretation Code [facility] POC Subsection POC Username STEPHANIE JANE Invalid Interpretation Code [facility] [place] POC Subsection CHEMISTRYOrdered By: Lab ROP User on 11-28-2022 Glucose [Mass/Vol] 141 mg/dL High 55 - 99 mg/dL [facility] [place] POC Subsection Comment on above: Result Comment: Fausto rubi RN/ POC Device SN [id number] Invalid Interpretation Code [facility] POC Subsection POC User ID [id number] Invalid Interpretation Code [facility] POC Subsection POC Username JOANNA AG Invalid Interpretation Code [facility] POC Subsection CHEMISTRYOrdered By: SYSTEM SYSTEM on 11-28-2022 Anion gap [Moles/Vol] 7 mmol/L Normal 6 - 16 mEq/L [facility] Remisol Chloride [Moles/Vol] 112 mmol/L High 101 - 1 11 mmol/L [facility] Remisol CO2 [Moles/Vol] 25 mmol/L Normal 21 - 31 mmol/L [facility] Remisol Creatinine [Mass/Vol] 0.9 mg/dL Normal 0.5 - 1.3 mg/dL [facility] Remisol GFR/1.73 sq M.predicted among non-blacks MDRD (S/P/Bld) [Vol rate/Area] 70 mL/min/1.73 m2 Normal >=59mL/min /1.73 m2 [facility] [place] Chem S Potassium [Moles/Vol] 3.6 mmol/L Normal 3.5 - 5.3 mmol/L [facility] Remisol Sodium [Moles/Vol] 140 mmol/L Normal 135 - 145 mmol/L [facility] Remisol Urea nitrogen [Mass/Vol] 13 mg/dL Normal 5 - 21 mg/dL [facility] Remisol HEMATOLOGYOrdered By: SYSTEM SYSTEM on 11-28-2022 Basophils/100 WBC (Bld) 0.2 % Normal 0.0 - 2.0 % [facility] Basophils/Leukocytes Auto (Bld) [Pure # fraction] 0.0 E9/L Normal 0.0 - 0.2 E9/L [facility] Eosinophils/100 WBC (Bld) 5.7 % Normal 0.0 - 8.0 % [facility] Eosinophils/Leukocyte s Auto (Bld) [Pure # fraction] 0.5 E9/L Normal 0.0 - 0.5 E9/L [facility] Lymphocytes/100 WBC (Bld) 17.0 % Normal 14.0 - 50.0 % [facility] Lymphocytes/Leukocyte s Auto (Bld) [Pure # fraction] 1.5 E9/L Normal 1.0 - 4.0 E9/L [facility] Monocytes/100 WBC (Bld) 11.7 % Normal 4.0 - 14.0 % [facility] Monocytes/Leukocytes Auto (Bld) [Pure # fraction] 1.1 E9/L High 0.2 - 1.0 E9/L [facility] Neutrophils/100 WBC (Bld) 65.4 % Normal 36.0 - 75.0 % [facility] Neutrophils/Leukocyte s Auto (Bld) [Pure # fraction] 5.9 E9/L Normal 2.0 - 7.5 E9/L [facility] HEMATOLOGYOrdered By: David Gasca on 11-28-2022 Erythrocyte distribution width (RBC) [Ratio] 13.2 % Normal 10.9 - 14.2 % [facility] Hematocrit (Bld) [Volume fraction] 24.5 % Low 34.0 - 46.0 % [facility] Hemoglobin (Bld) [Mass/Vol] 8.6 g/dL Low 12.0 - 16.0 gm/dL [facility] MCH (RBC) [Entitic mass] 31.1 pg Normal 27.0 - 34.0 pg [facility] MCHC (RBC) [Mass/Vol] 35.0 g/dL Normal 31.4 - 36.0 gm/dL [facility] MCV (RBC) [Entitic vol] 89.1 fL Normal 80.0 - 100.0 fL [facility] Platelet mean volume (Bld) [Entitic vol] 9.0 fL Normal 6.4 - 10.8 fL [facility] Platelets (Bld) [#/Vol] 158.0 E9/L Normal 150.0 - 500.0 E9/L [facility] RBC (Bld) [#/Vol] 2.8 E12/L Low 4.3 - 5.9 E12/L [facility] WBC corrected for nucl RBC Auto (Bld) [#/Vol] 9.1 E9/L Normal 4.0 - 11.0 E9/L [facility] CHEMISTRYOrdered By: SYSTEM SYSTEM on 11-27-2022 Anion gap [Moles/Vol] 7 mmol/L Normal 6 - 16 mEq/L [facility] Remisol Calcium [Mass/Vol] 8.1 mg/dL Low 8.9 - 11. 1 mg/dL [facility]isol Chloride [Moles/Vol] 114 mmol/L High 101 - 1 11 mmol/L [facility] Remisol CO2 [Moles/Vol] 23 mmol/L Normal 21 - 31 mmol/L [facility] Rem[facility] Creatinine [Mass/Vol] 1.0 mg/dL Normal 0.5 - 1.3 mg/dL [facility] GFR/1.73 sq M.predicted among non-blacks MDRD (S/P/Bld) [Vol rate/Area] 61 mL/min/1.73 m2 Normal >=59mL/min /1.73 m2 [facility] Chem S Glucose [Mass/Vol] 255 mg/dL High 55 - 199 mg/dL [facility] Rem[facility] Potassium [Moles/Vol] 3.8 mmol/L Normal 3.5 - 5.3 mmol/L [facility] Sodium [Moles/Vol] 140 mmol/L Normal 135 - 145 mmol/L [facility] Urea nitrogen [Mass/Vol] 19 mg/dL Normal 5 - 21 mg/dL [facility] [facility] Remisol Urea nitrogen/Creatinine [Mass ratio] 19 mg/mg Normal 10 - 20 [facility] Remisol HEMATOLOGYOrdered By: SYSTEM SYSTEM on 11-27-2022 Basophils/100 WBC (Bld) 0.2 % Normal 0.0 - 2.0 % [facility] Basophils/Leukocytes Auto (Bld) [Pure # fraction] 0.0 E9/L Normal 0.0 - 0.2 E9/L [facility] Eosinophils/100 WBC (Bld) 1.8 % Normal 0.0 - 8.0 % [facility] Eosinophils/Leukocyte s Auto (Bld) [Pure # fraction] 0.2 E9/L Normal 0.0 - 0.5 E9/L [facility] Lymphocytes/100 WBC (Bld) 16.0 % Normal 14.0 - 50.0 % [facility] Lymphocytes/Leukocyte s Auto (Bld) [Pure # fraction] 1.4 E9/L Normal 1.0 - 4.0 E9/L [facility] Monocytes/100 WBC (Bld) 11.9 % Normal 4.0 - 14.0 % [facility] Monocytes/Leukocytes Auto (Bld) [Pure # fraction] 1.0 E9/L Normal 0.2 - 1.0 E9/L [facility] Neutrophils/100 WBC (Bld) 70.1 % Normal 36.0 - 75.0 % [facility] Neutrophils/Leukocyte s Auto (Bld) [Pure # fraction] 6.2 E9/L Normal 2.0 - 7.5 E9/L [facility] HEMATOLOGYOrdered By: Alliso n Emma on 11-27-2022 Erythrocyte distribution width (RBC) [Ratio] 13.3 % Normal 10.9 - 14.2 % [facility] Hematocrit (Bld) [Volume fraction] 22.7 % Low 34.0 - 46.0 % [facility] Hemoglobin (Bld) [Mass/Vol] 7.8 g/dL Low 12.0 - 16.0 gm/dL [facility] MCH (RBC) [Entitic mass] 30.6 pg Normal 27.0 - 34.0 pg [facility] MCHC (RBC) [Mass/Vol] 34.5 g/dL Normal 31.4 - 36.0 gm/dL [facility] MCV (RBC) [Entitic vol] 88.6 [...] [facility] CHEMISTRYOrdered By: SYSTEM SYSTEM on 11-26-2022 Anion gap [Moles/Vol] 7 mmol/L Normal 6 - 16 mEq/L [facility] Remisol Calcium [Mass/Vol] 7.9 mg/dL Low 8.9 - 11. 1 mg/dL [facility] Remisol Chloride [Moles/Vol] 108 mmol/L Normal 101 - 1 11 mmol/L [facility] Remisol CO2 [Moles/Vol] 22 mmol/L Normal 21 - 31 mmol/L [facility] Remisol Creatinine [Mass/Vol] 1.3 mg/dL Normal 0.5 - 1.3 mg/dL [facility] Remisol GFR/1.73 sq M.predicted among non-blacks MDRD (S/P/Bld) [Vol rate/Area] 45 mL/min/1.73 m2 Low >=59mL/min /1.73 m2 [facility] [facility] Chem S Glucose [Mass/Vol] 353 mg/dL High 55 - 199 mg/dL [facility] Potassium [Moles/Vol] 4.1 mmol/L Normal 3.5 - 5.3 mmol/L [facility] Remisol Sodium [Moles/Vol] 133 mmol/L Low 135 - 145 mmol/L [facility] Urea nitrogen [Mass/Vol] 21 mg/dL Normal 5 - 21 mg/dL [facility] Urea nitrogen/Creatinine [Mass ratio] 16 mg/mg Normal 10 - 20 [facility] Remisol HEMATOLOGYOrdered By: Rajesh Bradford on 11-26-2022 Hematocrit (Bld) [Volume fraction] 23.2 % Low 34.0 - 46.0 % [facility] Hemoglobin (Bld) [Mass/Vol] 8.0 g/dL Low 12.0 - 16.0 gm/dL [facility] [facility] HEMATOLOGYOrdered By: SYSTEM SYSTEM on 11-26-2022 Basophils/100 WBC (Bld) 0.1 % Normal 0.0 - 2.0 % [facility] Basophils/Leukocytes Auto (Bld) [Pure # fraction] 0.0 E9/L Normal 0.0 - 0.2 E9/L [facility] Eosinophils/100 WBC (Bld) 0.0 % Normal 0.0 - 8.0 % [facility] Eosinophils/Leukocyte s Auto (Bld) [Pure # fraction] 0.0 E9/L Normal 0.0 - 0.5 E9/L [facility] Lymphocytes/100 WBC (Bld) 4.8 % Low 14.0 - 50.0 % [facility] Lymphocytes/Leukocyte s Auto (Bld) [Pure # fraction] 0.4 E9/L Low 1.0 - 4.0 E9/L [facility] Monocytes/100 WBC (Bld) 6.9 % Normal 4.0 - 14.0 % [facility] Monocytes/Leukocytes Auto (Bld) [Pure # fraction] 0.5 E9/L Normal 0.2 - 1.0 E9/L [facility] Neutrophils/100 WBC (Bld) 88.2 % High 36.0 - 75.0 % [facility] Neutrophils/Leukocyte s Auto (Bld) [Pure # fraction] 6.6 E9/L [...] AM) Normal Negative [facility] UA Auto SS [place].plasma/Lithiu m.RBC (Bld) [Mass ratio] 0-3 /HPF Normal 0-3/HPF [...] [facility] UA Auto SS Urobilinogen Qn (U) [id number] {Papa'U}/dL Normal 0.0 - 1.0 EU/dL [facility] [...] activity/Vol] 158 [iU]/d Normal 93 - 218 Int._Unit/ L [facility] Remisol Transferrin [Mass/Vol] 224 mg/dL Normal 200 - 370 mg/dL [facility] Remisol TSH Qn 0.25 m[IU]/L Low 0.34 - 5.60 mcIU/mL [facility] Remisol Albumin [Mass/Vol] 3.6 g/dL Normal 3.3 - 5.0 gm/dL [facility] Remisol Albumin/Globulin [Mass ratio] 1.1 {ratio} Normal 1.1 - 2.2 [facility] Remisol ALP [Catalytic activity/Vol] 61 [iU]/d Normal 21 - 98 Int._Unit/ L [facility] Remisol ALT No additional P-5'-P [Catalytic activity/Vol] 15 [iU]/d Normal 6 - 46 Int._Unit/ L [facility] Remisol AST [Catalytic activity/Vol] 19 [iU]/d Normal 5 - 43 Int._Unit/ L [facility] Remisol Bilirubin [Mass/Vol] 0.6 mg/dL Normal [...] s Normal 9.4 - 1 2.5 second(s) [facility] Auto Coag HEMATOLOGYOrdered By: Kirstin King on 11-24-2022 Reticulocytes/100 RBC (Bld) 0.9 % Normal 0.5 - 1.5 % [facility] Comment on above: Result Comment: This Reticulocyte Count Has Been Corrected For Anemia CHEMISTRYOrdered By: SYSTEM SYSTEM on 10-02-2022 Albumin [Mass/Vol] 4.1 g/dL Normal 3.3 - 5.0 gm/dL [facility] Remisol Albumin/Globulin [Mass ratio] 1.2 {ratio} Normal 1.1 - 2.2 [facility] Remisol ALP [Catalytic activity/Vol] 67 [iU]/d Normal 21 - 98 Int._Unit/ L [facility] Remisol ALT No additional P-5'-P [Catalytic activity/Vol] 8 [iU]/d Normal 6 - 46 Int._Unit/ L [facility] Remisol Anion gap [Moles/Vol] 15 mmol/L Normal 6 - 16 mEq/L [facility] Remisol AST [Catalytic activity/Vol] 20 [iU]/d Normal 5 - 43 Int._Unit/ L [facility] Bilirubin [Mass/Vol] 0.7 mg/dL Normal [...] (S/P/Bld) [Vol rate/Area] 55 mL/min/1.73 m2 Low >=59mL/min /1.73 m2 [facility] Chem S Globulin (S) [Mass/Vol] 3.5 g/dL Normal 1.4 - 4.0 gm/dL [facility] Glucose [Mass/Vol] 186 mg/dL Normal 55 - 199 mg/dL [facility] Lipase [Catalytic activity/Vol] 41 U/L Normal [...] Normal 0.0 - 8.0 % [facility] HemeAutoSS Eosinophils/Leukocyte s Auto (Bld) [Pure # fraction] 0.1 E9/L Normal 0.0 - 0.5 E9/L [facility] Lymphocytes/100 WBC (Bld) 19.9 % Normal 14.0 - 50.0 % [facility] Lymphocytes/Leukocyte s Auto (Bld) [Pure # fraction] 1.5 E9/L Normal 1.0 - 4.0 E9/L [facility] Monocytes/100 WBC (Bld) 12.7 % Normal 4.0 - 14.0 % [facility] Monocytes/Leukocytes Auto (Bld) [Pure # fraction] 1.0 E9/L Normal 0.2 - 1.0 E9/L [facility] Neutrophils/100 WBC (Bld) 65.7 % Normal 36.0 - 75.0 % [facility] Neutrophils/Leukocyte s Auto (Bld) [Pure # fraction] 5.1 E9/L [...] 7.8 E9/L Normal 4.0 - 11.0 E9/L [facility] [place] HemeAutoSS BLOOD BANKOrdered By: Jose Martin Brar on 09-04-2022 ABO/Rh Interp Positive Invalid Interpretation Code FT BB Subsection ABSC Gel Interp Negative (09/04/22 4:10 PM) Normal [facility] [place] BB Subsection CHEMISTRYOrdered By: Temitope ROP User on 09-04-2022 Glucose [Mass/Vol] 241 mg/dL High 55 - 99 mg/dL [facility] POC Subsection Comment on above: Result Comment: Fausto rubi RN/ POC Device SN [id number] Invalid Interpretation Code FT POC Subsection POC User ID [id number] Invalid Interpretation Code FT POC Subsection POC Username ALEKSANDAR KING Invalid Interpretation Code FT POC Subsection CHEMISTRYOrdered By: SYSTEM SYSTEM on 09-04-2022 Albumin [Mass/Vol] 3.6 g/dL Normal 3.3 - 5.0 gm/dL [facility] Remisol Albumin/Globulin [Mass ratio] 1.1 {ratio} Normal 1.1 - 2.2 [facility] Rem[facility] ALP [Catalytic activity/Vol] 75 [iU]/d Normal 21 - 98 Int._Unit/ L [facility] Rem[facility] ALT No additional P-5'-P [Catalytic activity/Vol] 14 [iU]/d Normal 6 - 46 Int._Unit/ L [facility] Anion gap [Moles/Vol] 11 mmol/L Normal 6 - 16 mEq/L [facility] AST [Catalytic activity/Vol] 16 [iU]/d Normal 5 - 43 Int._Unit/ L [facility] Bilirubin [Mass/Vol] 0.6 mg/dL Normal 0.0 - 1 .1 mg/dL [facility] Bilirubin.direct [Mass/Vol] 0.2 mg/dL Normal 0.1 - 0.4 mg/dL [facility] Remisol Bilirubin.indirect [Mass or moles/Vol] 0.4 mg/dL [...] [facility] Remisol Ethanol [Mass/Vol] mg/dL Normal <=7mg/dL [facility] [place] R emisol GFR/1.73 sq M.predicted among non-blacks MDRD (S/P/Bld) [Vol rate/Area] 70 mL/min/1.73 m2 Normal >=59mL/min /1.73 m2 [facility] [place] Chem S Globulin (S) [Mass/Vol] 3.3 g/dL Normal 1.4 - 4.0 gm/dL [facility] Remisol Glucose [Mass/Vol] 237 mg/dL High 55 - 199 mg/dL [facility] Lactate [Mass/Vol] 1.7 mmol/L Normal 0.5 - 2.2 mmol/L [facility] Lipase [Catalytic activity/Vol] 40 U/L Normal 13 - 58 unit/L [facility] Potassium [Moles/Vol] 3.2 mmol/L Low 3.5 - 5.3 mmol/L [facility] Protein [Mass/Vol] 6.9 g/dL Normal 6.0 - 7.8 gm/dL [facility] Sodium [Moles/Vol] 140 mmol/L Normal [...] Normal 0.0 - 8.0 % [facility]SS Eosinophils/Leukocyte s Auto (Bld) [Pure # fraction] 0.1 E9/L Normal 0.0 - 0.5 E9/L [facility] Lymphocytes/100 WBC (Bld) 19.6 % Normal 14.0 - 50.0 % [facility] Lymphocytes/Leukocyte s Auto (Bld) [Pure # fraction] 1.2 E9/L Normal 1.0 - 4.0 E9/L [facility] Monocytes/100 WBC (Bld) 11.2 % Normal 4.0 - 14.0 % [facility] Monocytes/Leukocytes Auto (Bld) [Pure # fraction] 0.7 E9/L Normal 0.2 - 1.0 E9/L [facility] Neutrophils/100 WBC (Bld) 67.0 % Normal 36.0 - 75.0 % [facility] Neutrophils/Leukocyte s Auto (Bld) [Pure # fraction] 4.0 E9/L [...] activity/Vol] 86 [iU]/d Normal 21 - 98 Int._Unit/ L [facility] ALT No additional P-5'-P [Catalytic activity/Vol] 21 [iU]/d Normal 6 - 46 Int._Unit/ L [facility] Anion gap [Moles/Vol] 13 mmol/L Normal 6 - 16 mEq/L [facility] AST [Catalytic activity/Vol] 29 [iU]/d Normal 5 - 43 Int._Unit/ L [facility] Bilirubin [Mass/Vol] 0.5 mg/dL Normal [...] (S/P/Bld) [Vol rate/Area] 62 mL/min/1.73 m2 Normal >=59mL/min /1.73 m2 [facility] Chem S Globulin (S) [Mass/Vol] 3.7 g/dL Normal 1.4 - 4.0 gm/dL [facility] Glucose [Mass/Vol] 203 mg/dL High 55 - 199 mg/dL [facility] Lactate [Mass/Vol] 1.9 mmol/L Normal 0.5 - 2.2 mmol/L [facility] Potassium [Moles/Vol] 3.7 mmol/L Normal 3.5 - 5.3 mmol/L [facility] Protein [Mass/Vol] 7.6 g/dL Normal 6.0 - 7.8 gm/dL [facility] Sodium [Moles/Vol] 138 mmol/L Normal 135 - 145 mmol/L [facility] Troponin I.cardiac [Mass/Vol] 2.50 pg/mL Low 10.10 - 27.10 pg/mL [facility] [facility] Remisol Urea nitrogen [Mass/Vol] 12 mg/dL Normal 5 - 21 mg/dL [facility] Urea nitrogen/Creatinine [Mass ratio] 12 mg/mg Normal 10 - 20 [facility] [place] [facility] Remisol CHEMISTRYOrdered By: Lab ROP User on 08-09-2022 Glucose [Mass/Vol] 212 mg/dL High 55 - 99 mg/dL [facility] [place] POC Subsection POC Device SN [id number] Invalid Interpretation Code [facility] [place] POC Subsection POC User ID [id number] Invalid Interpretation Code [facility] POC Subsection POC Username STEVE KIMBALL Invalid Interpretation Code [facility] [place] POC Subsection COAGULATIONOrdered By: Vinnie Smith on 08-09-2022 aPTT Coag (PPP) [Time] 31.1 s Normal 25.1 - 36.5 second(s) [facility] Auto Coag INR Coag (PPP) [Relative time] 1.0 {INR} Invalid Interpretation Code [facility] Auto Coag PT Coag (PPP) [Time] 10.9 s Normal 9.4 - 1 2.5 second(s) [facility] [place] [place] Auto Coag HEMATOLOGYOrdered By: SYSTEM SYSTEM on 08-09-2022 Basophils/100 WBC (Bld) 0.4 % Normal 0.0 - 2.0 % [facility] HemeAutoSS Basophils/Leukocytes Auto (Bld) [Pure # fraction] 0.0 E9/L Normal 0.0 - 0.2 E9/L [facility] Eosinophils/100 WBC (Bld) 2.8 % Normal 0.0 - 8.0 % [facility] Eosinophils/Leukocyte s Auto (Bld) [Pure # fraction] 0.1 E9/L Normal 0.0 - 0.5 E9/L [facility] Lymphocytes/100 WBC (Bld) 26.3 % Normal 14.0 - 50.0 % [facility] Lymphocytes/Leukocyte s Auto (Bld) [Pure # fraction] 1.3 E9/L Normal 1.0 - 4.0 E9/L [facility] Monocytes/100 WBC (Bld) 10.8 % Normal 4.0 - 14.0 % [facility] Monocytes/Leukocytes Auto (Bld) [Pure # fraction] 0.5 E9/L Normal 0.2 - 1.0 E9/L [facility] Neutrophils/100 WBC (Bld) 59.7 % Normal 36.0 - 75.0 % [facility] Neutrophils/Leukocyte s Auto (Bld) [Pure # fraction] 2.9 E9/L [...] PM) Normal Negative [facility] UA Auto SS [place].plasma/Lithiu m.RBC (Bld) [Mass ratio] 0-3 /HPF Normal 0-3/HPF [...] [facility] UA Auto SS Urobilinogen Qn (U) 0.7676887 {Papa'U}/dL Normal 0.0 - 1.0 EU/dL [facility] UA Auto SS WBC Auto Ql (U) Negative (08/09/22 2:08 PM) Normal Negative [facility] UA Auto SS WBC LM.HPF (Urine sed) [#/Area] 0-5 /HPF Normal 0-5/HPF [facility] UA Auto SS Progress Noteson 07-18-2022 [employer] Continuous Churn Authentication Interface Message Text EMERGENCY TRIAGE, TREAT AND TRANSPORT (ET3) DOCUMENTATION OF TELEHEALTH VISIT Date / Time: 07/18/2022 / 1615 Name: Fartun Myers NOTE: CORRECT SPELLING MAY BE ZACH : 1955 SSN: (Not on file) EMS Agency: [facility] [x] Verbal consent obtained [] Implied [...] Completed by: Naseem Hardy MD Normal [facility] CHEMISTRYOrdered By: SYSTEM SYSTEM on 03-13-2022 Albumin [Mass/Vol] 3.6 g/dL Normal 3.3 - 5.0 gm/dL [facility] Albumin/Globulin [Mass ratio] 1.1 {ratio} Normal 1.1 - 2.2 [facility] ALP [Catalytic activity/Vol] 98 [iU]/d Normal 21 - 98 Int._Unit/ L [facility] ALT No additional P-5'-P [Catalytic activity/Vol] 14 [iU]/d Normal 6 - 46 Int._Unit/ L [facility] Anion gap [Moles/Vol] 13 mmol/L Normal 6 - 16 mEq/L [facility] AST [Catalytic activity/Vol] 16 [iU]/d Normal 5 - 43 Int._Unit/ L [facility] Bilirubin [Mass/Vol] 0.6 mg/dL Normal [...] MDRD (S/P/Bld) [Vol rate/Area] mL/min/1.73 m2 Normal >=59mL/min /1.73 m2 [facility] Chem S GFR/1.73 sq M.predicted among non-blacks MDRD (S/P/Bld) [Vol rate/Area] 55 mL/min/1.73 m2 Low >=59mL/min /1.73 m2 [facility] Chem S Globulin (S) [Mass/Vol] 3.3 g/dL Normal 1.4 - 4.0 gm/dL [facility] Glucose [Mass/Vol] 123 mg/dL Normal 55 - 199 mg/dL [facility] Lipase [Catalytic activity/Vol] 39 U/L Normal [...] Normal 0.0 - 8.0 % [facility]eAutoSS Eosinophils/Leukocyte s Auto (Bld) [Pure # fraction] 0.2 E9/L Normal 0.0 - 0.5 E9/L [facility] Lymphocytes/100 WBC (Bld) 24.6 % Normal 14.0 - 50.0 % [facility] Lymphocytes/Leukocyte s Auto (Bld) [Pure # fraction] 1.7 E9/L Normal 1.0 - 4.0 E9/L [facility] Monocytes/100 WBC (Bld) 12.3 % Normal 4.0 - 14.0 % [facility] Monocytes/Leukocytes Auto (Bld) [Pure # fraction] 0.8 E9/L Normal 0.2 - 1.0 E9/L [facility] Neutrophils/100 WBC (Bld) 59.4 % Normal 36.0 - 75.0 % [facility] Neutrophils/Leukocyte s Auto (Bld) [Pure # fraction] 4.1 E9/L [...] PM) Normal Negative [facility] UA Auto SS [place].plasma/Lithiu m.RBC (Bld) [Mass ratio] 0-3 /HPF Normal 0-3/HPF [...] [facility] UA Auto SS Urobilinogen Qn (U) 0.3143971 {Papa'U}/dL Normal 0.0 - 1.0 EU/dL [facility] [...] activity/Vol] 86 [iU]/d Normal 21 - 98 Int._Unit/ L [facility] Rem[facility] ALT No additional P-5'-P [Catalytic activity/Vol] 19 [iU]/d Normal 6 - 46 Int._Unit/ L [facility] Anion gap [Moles/Vol] 12 mmol/L Normal 6 - 16 mEq/L [facility] AST [Catalytic activity/Vol] 19 [iU]/d Normal 5 - 43 Int._Unit/ L [facility] Beta hydroxybutyrate [Moles/Vol] 0.05 mmol/L [...] MDRD (S/P/Bld) [Vol rate/Area] mL/min/1.73 m2 Normal >=59mL/min /1.73 m2 [facility] [facility] Chem S GFR/1.73 sq M.predicted among non-blacks MDRD (S/P/Bld) [Vol rate/Area] mL/min/1.73 m2 Normal >=59mL/min /1.73 m2 [facility] [facility] Chem S Globulin (S) [...] 17 mg/dL Normal 5 - 21 mg/dL [facility] Urea nitrogen/Creatinine [Mass ratio] 19 mg/mg Normal 10 - 20 [facility] HEMATOLOGYOrdered By: SYSTEM SYSTEM on 02-08-2022 Basophils/100 WBC (Bld) 1.2 % Normal 0.0 - 2.0 % [facility] Basophils/Leukocytes Auto (Bld) [Pure # fraction] 0.1 E9/L Normal 0.0 - 0.2 E9/L [facility] Eosinophils/100 WBC (Bld) 4.3 % Normal 0.0 - 8.0 % [facility]Auto[facility] Eosinophils/Leukocyte s Auto (Bld) [Pure # fraction] 0.3 E9/L Normal 0.0 - 0.5 E9/L [facility] Lymphocytes/100 WBC (Bld) 21.4 % Normal 14.0 - 50.0 % [facility] Lymphocytes/Leukocyte s Auto (Bld) [Pure # fraction] 1.6 E9/L Normal 1.0 - 4.0 E9/L [facility] Monocytes/100 WBC (Bld) 11.7 % Normal 4.0 - 14.0 % [facility] Monocytes/Leukocytes Auto (Bld) [Pure # fraction] 0.9 E9/L Normal 0.2 - 1.0 E9/L [facility] Neutrophils/100 WBC (Bld) 61.4 % Normal 36.0 - 75.0 % [facility] Neutrophils/Leukocyte s Auto (Bld) [Pure # fraction] 4.7 E9/L Normal 2.0 - 7.5 E9/L [facility] HEMATOLOGYOrdered By: Alliso n Emma on 02-08-2022 Erythrocyte distribution width (RBC) [Ratio] [...] PM) Normal Negative [facility] UA Auto SS [place].plasma/Lithiu m.RBC (Bld) [Mass ratio] 0-3 /HPF Normal 0-3/HPF [...] PM) Invalid Interpretation Code 1.005 - 1.030 [facility] UA Auto SS UA Spec Desc Clean Catch (02/08/22 9:05 PM) Normal [facility] UA Auto SS Urobilinogen Qn (U) 0.1501533 {Papa'U}/dL Normal 0.0 - 1.0 EU/dL [facility] UA Auto SS WBC Auto Ql (U) Negative (02/08/22 9:05 PM) Normal Negative [facility] [place] UA Auto SS WBC LM.HPF (Urine sed) [#/Area] 0-5 /HPF Normal 0-5/HPF [facility] [place] UA Auto SS CHEMISTRYOrdered By: SYSTEM SYSTEM on 02-03-2022 Anion gap [Moles/Vol] 8 mmol/L Normal 6 - 16 mEq/L [facility] [...] (S/P/Bld) [Vol rate/Area] 54 mL/min/1.73 m2 Low >=59mL/min /1.73 m2 [facility] [place] Chem S GFR/1.73 sq M.predicted among non-blacks MDRD (S/P/Bld) [Vol rate/Area] 45 mL/min/1.73 m2 Low >=59mL/min /1.73 m2 [facility] [place] Chem S Glucose [Mass/Vol] 165 mg/dL Normal 55 - 199 mg/dL [facility] Potassium [Moles/Vol] 3.2 mmol/L Low 3.5 - 5.3 mmol/L [facility] Sodium [Moles/Vol] 138 mmol/L Normal 135 - 145 mmol/L [facility] Urea nitrogen [Mass/Vol] 11 mg/dL Normal 5 - 21 mg/dL [facility] Urea nitrogen/Creatinine [Mass ratio] 9 mg/mg Low 10 - 20 [facility] CHEMISTRYOrdered By: Lab ROP User on 02-03-2022 Glucose [Mass/Vol] 186 mg/dL High 55 - 99 mg/dL [facility] [facility] POC Subsection Comment on above: Result Comment: Fausto rubi RN/ POC Device SN [id number] Invalid Interpretation Code [facility] POC Subsection POC User ID [id number] Invalid Interpretation Code [facility] POC Subsection POC Username SELVIN BARON Invalid Interpretation Code [facility] [place] POC Subsection HEMATOLOGYOrdered By: SYSTEM SYSTEM on 02-03-2022 Basophils/100 WBC (Bld) 0.4 % Normal 0.0 - 2.0 % [facility] Basophils/Leukocytes Auto (Bld) [Pure # fraction] 0.0 E9/L Normal 0.0 - 0.2 E9/L [facility] Eosinophils/100 WBC (Bld) 7.3 % Normal 0.0 - 8.0 % [facility] Eosinophils/Leukocyte s Auto (Bld) [Pure # fraction] 0.4 E9/L Normal 0.0 - 0.5 E9/L [facility] Lymphocytes/100 WBC (Bld) 32.4 % Normal 14.0 - 50.0 % [facility] Lymphocytes/Leukocyte s Auto (Bld) [Pure # fraction] 1.7 E9/L Normal 1.0 - 4.0 E9/L [facility] Monocytes/100 WBC (Bld) 15.6 % High 4.0 - 14.0 % [facility] Monocytes/Leukocytes Auto (Bld) [Pure # fraction] 0.8 E9/L Normal 0.2 - 1.0 E9/L [facility] Neutrophils/100 WBC (Bld) 44.3 % Normal 36.0 - 75.0 % [facility]Auto[facility] Neutrophils/Leukocyte s Auto (Bld) [Pure # fraction] 2.3 E9/L [...] 155 mg/dL High 55 - 99 mg/dL [facility] POC Subsection Comment on above: Result Comment: Fausto rubi RN/ POC Device SN [id number] Invalid Interpretation Code [facility] POC Subsection POC User ID [id number] Invalid Interpretation Code [facility] POC Subsection POC Username JERZY BARCENAS Invalid Interpretation Code [facility] POC Subsection Glucose [Mass/Vol] 176 mg/dL High 55 - 99 mg/dL [facility] POC Subsection Comment on above: Result Comment: Lucille ronak Meter POC Device SN [id number] Invalid Interpretation Code [facility] POC Subsection POC User ID [id number] Invalid Interpretation Code [facility] POC Subsection POC Username LIANA ALLEN Invalid Interpretation Code [facility] POC Subsection CHEMISTRYOrdered By: SYSTEM SYSTEM on 02-02-2022 Anion gap [Moles/Vol] 7 mmol/L Normal 6 - 16 mEq/L [facility] Calcium [Mass/Vol] 7.8 mg/dL Low 8.9 - 11. 1 mg/dL [facility] Chloride [Moles/Vol] 115 mmol/L High 101 - 1 11 mmol/L [facility] CO2 [Moles/Vol] 22 mmol/L Normal 21 - 31 mmol/L [facility] Creatinine [Mass/Vol] 1.0 mg/dL Normal 0.5 - 1.3 mg/dL [facility] GFR/1.73 sq M.predicted among blacks MDRD (S/P/Bld) [Vol rate/Area] mL/min/1.73 m2 Normal >=59mL/min /1.73 m2 [facility] Chem S GFR/1.73 sq M.predicted among non-blacks MDRD (S/P/Bld) [Vol rate/Area] 55 mL/min/1.73 m2 Low >=59mL/min /1.73 m2 [facility] Chem S Glucose [Mass/Vol] 159 mg/dL Normal 55 - 199 mg/dL [facility] Potassium [Moles/Vol] 3.6 mmol/L Normal 3.5 - 5.3 mmol/L [facility] Sodium [Moles/Vol] 140 mmol/L Normal 135 - 145 mmol/L [facility] Urea nitrogen [Mass/Vol] 20 mg/dL Normal 5 - 21 mg/dL [facility] Urea nitrogen/Creatinine [Mass ratio] 20 mg/mg [...] AM) Normal Negative [facility] UA Auto SS [place].plasma/Lithiu m.RBC (Bld) [Mass ratio] 0-3 /HPF Normal 0-3/HPF [facility] UA Auto SS Nitrite Ql (U) Negative (02/02/22 7:06 AM) Normal Negative [facility] UA Auto SS pH (U) 6.5 *NA* (02/02/22 7:06 AM) Invalid Interpretation Code 5.0 - 9.0 [facility] UA Auto SS Protein (U) [Mass/Vol] Negative (02/02/22 7:06 AM) Normal Negative [facility] UA Auto SS Specific gravity (U) [Rel density] 1.010 *NA* (02/02/22 7:06 AM) Invalid Interpretation Code 1.005 - 1.030 [facility] UA Auto SS UA Spec Desc Clean Catch (02/02/22 7:06 AM) Normal [facility] UA Auto SS Urobilinogen Qn (U) 0.7673497 {Papa'U}/dL Normal 0.0 - 1.0 EU/dL [facility] UA Auto SS WBC Auto Ql (U) Trace *ABN* (02/02/22 7:06 AM) Invalid Interpretation Code Negative [facility] [place] UA Auto SS WBC LM.HPF (Urine sed) [#/Area] 0-5 /HPF Normal 0-5/HPF [facility] [place] UA Auto SS CHEMISTRYOrdered By: Lab ROP User on 02-01-2022 Glucose [Mass/Vol] 261 mg/dL High 55 - 99 mg/dL [facility] [place] POC Subsection Comment on above: Result Comment: Fausto rubi RN/ POC Device SN [id number] Invalid Interpretation Code [facility] POC Subsection POC User ID [id number] Invalid Interpretation Code [facility] POC Subsection POC Username AIDE JOY Invalid Interpretation Code [facility] [place] POC Subsection CHEMISTRYOrdered By: [...] (S/P/Bld) [Vol rate/Area] 42 mL/min/1.73 m2 Low >=59mL/min /1.73 m2 [facility] [place] Chem S GFR/1.73 sq M.predicted among non-blacks MDRD (S/P/Bld) [Vol rate/Area] 35 mL/min/1.73 m2 Low >=59mL/min /1.73 m2 [facility] [place] Chem S Glucose [Mass/Vol] 128 mg/dL Normal 55 - 199 mg/dL [facility] Magnesium [Mass/Vol] 2.0 mg/dL Normal 1.3 - 2 .4 mg/dL [facility] Sodium [Moles/Vol] 136 mmol/L Normal 135 - 145 mmol/L [facility] Urea nitrogen [Mass/Vol] 31 mg/dL High 5 - 21 mg/dL [facility] Urea nitrogen/Creatinine [Mass ratio] 21 mg/mg High 10 - 20 [facility] Remisol CHEMISTRYOrdered By: Sylvia Smith on 02-01-2022 Creatinine [Mass/Vol] 1.5 mg/dL High 0.5 - 1.3 mg/dL [facility] [place] Remisol Potassium [Moles/Vol] 3.3 mmol/L Low 3.5 - 5.3 mmol/L [facility] Remisol HEMATOLOGYOrdered By: SYSTEM SYSTEM on 02-01-2022 Basophils/100 WBC (Bld) 0.2 % Normal 0.0 - 2.0 % [facility]eAutoSS Basophils/Leukocytes Auto (Bld) [Pure # fraction] 0.0 E9/L Normal 0.0 - 0.2 E9/L [facility] Eosinophils/100 WBC (Bld) 1.2 % Normal 0.0 - 8.0 % [facility]Auto[facility] Eosinophils/Leukocyte s Auto (Bld) [Pure # fraction] 0.1 E9/L Normal 0.0 - 0.5 E9/L [facility] Lymphocytes/100 WBC (Bld) 10.3 % Low 14.0 - 50.0 % [facility] Lymphocytes/Leukocyte s Auto (Bld) [Pure # fraction] 1.1 E9/L Normal 1.0 - 4.0 E9/L [facility] Monocytes/100 WBC (Bld) 11.2 % Normal 4.0 - 14.0 % [facility]Auto[facility] Monocytes/Leukocytes Auto (Bld) [Pure # fraction] 1.2 E9/L High 0.2 - 1.0 E9/L [facility] Neutrophils/100 WBC (Bld) 77.1 % High 36.0 - 75.0 % [facility]eAutoSS Neutrophils/Leukocyte s Auto (Bld) [Pure # fraction] 8.3 E9/L [...] activity/Vol] 118 [iU]/d High 21 - 98 Int._Unit/ L [facility] Remisol ALT No additional P-5'-P [Catalytic activity/Vol] 14 [iU]/d Normal 6 - 46 Int._Unit/ L [facility] Rem[facility] Anion gap [Moles/Vol] 18 mmol/L High 6 - 16 mEq/L [facility] Rem[facility] AST [Catalytic activity/Vol] 16 [iU]/d Normal 5 - 43 Int._Unit/ L [facility] Rem[facility] Bilirubin [Mass/Vol] 0.6 mg/dL Normal [...] (S/P/Bld) [Vol rate/Area] 27 mL/min/1.73 m2 Low >=59mL/min /1.73 m2 [facility] [place] Chem S GFR/1.73 sq M.predicted among non-blacks MDRD (S/P/Bld) [Vol rate/Area] 22 mL/min/1.73 m2 Low >=59mL/min /1.73 m2 [facility] [place] Chem S Globulin (S) [Mass/Vol] 3.6 g/dL Normal 1.4 - 4.0 gm/dL [facility] Glucose [Mass/Vol] 274 mg/dL High 55 - 199 mg/dL [facility] Lactate [Mass/Vol] 1.2 mmol/L Normal 0.5 [...] 2.2 mg/dL High 0.5 - 1.3 mg/dL [facility] Rem[facility] CHEMISTRYOrdered By: Sejal Carter on 01-31-2022 HbA1c (Bld) [Mass fraction] 9.6 % High <=5.9% [facility]SS HEMATOLOGYOrdered By: SYSTEM SYSTEM on 01-31-2022 Basophils/100 WBC (Bld) 0.3 % Normal 0.0 - 2.0 % [facility]eAutoSS Basophils/Leukocytes Auto (Bld) [Pure # fraction] 0.0 E9/L Normal 0.0 - 0.2 E9/L [facility] Eosinophils/100 WBC (Bld) 2.9 % Normal 0.0 - 8.0 % [facility]eAutoSS Eosinophils/Leukocyte s Auto (Bld) [Pure # fraction] 0.3 E9/L Normal 0.0 - 0.5 E9/L [facility] Lymphocytes/100 WBC (Bld) 10.9 % Low 14.0 - 50.0 % [facility]eAutoSS Lymphocytes/Leukocyte s Auto (Bld) [Pure # fraction] 1.0 E9/L Normal 1.0 - 4.0 E9/L [facility] Monocytes/100 WBC (Bld) 8.5 % Normal 4.0 - 14.0 % [facility]eAutoSS Monocytes/Leukocytes Auto (Bld) [Pure # fraction] 0.8 E9/L Normal 0.2 - 1.0 E9/L [facility] Neutrophils/100 WBC (Bld) 77.4 % High 36.0 - 75.0 % [facility]eAutoSS Neutrophils/Leukocyte s Auto (Bld) [Pure # fraction] 7.2 E9/L [...] 197.0 E9/L Normal 150.0 - 500.0 E9/L [facility] RBC (Bld) [#/Vol] 4.1 E12/L Low 4.3 - 5.9 E12/L [facility] WBC corrected for nucl RBC Auto (Bld) [#/Vol] 9.3 E9/L Normal 4.0 - 11.0 E9/L [facility] CHEMISTRYOrdered By: Lab ROP User on 01-30-2022 Glucose [Mass/Vol] 250 mg/dL High 55 - 99 mg/dL [facility] POC Subsection Comment on above: Result Comment: Fausto CHAUDHARY POC Device SN [id number] Invalid Interpretation Code [facility] POC Subsection POC User ID [id number] Invalid Interpretation Code [facility] POC Subsection POC Username GAGANDEEP HER Invalid Interpretation Code [facility] POC Subsection Glucose [Mass/Vol] 265 mg/dL High 55 - 99 mg/dL [facility] POC Subsection Comment on above: Result Comment: Fausto CHAUDHARY POC Device SN [id number] Invalid Interpretation Code [facility] POC Subsection POC User ID [id number] Invalid Interpretation Code [facility] POC Subsection POC Username GAGANDEEP HER Invalid Interpretation Code [facility] [facility] POC Subsection CHEMISTRYOrdered By: SYSTEM SYSTEM on 01-30-2022 Anion gap [Moles/Vol] 12 mmol/L Normal 6 - 16 mEq/L [facility] [place] Remisol Calcium [Mass/Vol] 8.8 mg/dL Low 8.9 - 11. 1 mg/dL [facility] Rem[facility] Chloride [Moles/Vol] 106 mmol/L Normal 101 - 1 11 mmol/L [facility] CO2 [Moles/Vol] 24 mmol/L Normal 21 - 31 mmol/L [facility] [place] Remisol Creatinine [Mass/Vol] 1.1 mg/dL Normal 0.5 - 1.3 mg/dL [facility] [place] Remisol GFR/1.73 sq M.predicted among blacks MDRD (S/P/Bld) [Vol rate/Area] 60 mL/min/1.73 m2 Normal >=59mL/min /1.73 m2 [facility] [place] Chem S GFR/1.73 sq M.predicted among non-blacks MDRD (S/P/Bld) [Vol rate/Area] 50 mL/min/1.73 m2 Low >=59mL/min /1.73 m2 [facility] [place] Chem S Glucose [Mass/Vol] 255 mg/dL High 55 - 199 mg/dL [facility] [place] Remisol Potassium [Moles/Vol] 3.5 mmol/L Normal 3.5 - 5.3 mmol/L [facility] [place] Remisol Sodium [Moles/Vol] 138 mmol/L Normal 135 - 145 mmol/L [facility] [place] Remisol Urea nitrogen [Mass/Vol] 19 mg/dL Normal 5 - 21 mg/dL [facility] [place] Remisol Urea nitrogen/Creatinine [Mass ratio] 17 mg/mg Normal 10 - 20 [facility] [place] Remisol CHEMISTRYOrdered By: SYSTEM SYSTEM on 01-29-2022 Anion gap [Moles/Vol] 14 mmol/L Normal 6 - 16 mEq/L [facility] [place] Remisol Calcium [Mass/Vol] 9.1 mg/dL Normal 8.9 - 11. 1 mg/dL [facility] Remisol Chloride [Moles/Vol] 103 mmol/L Normal 101 - 1 11 mmol/L [facility] Remisol CO2 [Moles/Vol] 24 mmol/L Normal 21 - 31 mmol/L [facility] Rem[facility] Creatinine [Mass/Vol] 1.1 mg/dL Normal 0.5 - 1.3 mg/dL [facility] Remisol GFR/1.73 sq M.predicted among blacks MDRD (S/P/Bld) [Vol rate/Area] 60 mL/min/1.73 m2 Normal >=59mL/min /1.73 m2 [facility] Chem S GFR/1.73 sq M.predicted among non-blacks MDRD (S/P/Bld) [Vol rate/Area] 50 mL/min/1.73 m2 Low >=59mL/min /1.73 m2 [facility] [place] Chem S Glucose [Mass/Vol] [...] (S/P/Bld) [Vol rate/Area] 54 mL/min/1.73 m2 Low >=59mL/min /1.73 m2 [facility] Chem S GFR/1.73 sq M.predicted among non-blacks MDRD (S/P/Bld) [Vol rate/Area] 45 mL/min/1.73 m2 Low >=59mL/min /1.73 m2 [facility] [place] Chem S Glucose [Mass/Vol] [...] 248 mg/dL High 55 - 99 mg/dL [facility] [place] POC Subsection Comment on above: Result Comment: Fausto rubi RN/ POC Device SN [id number] Invalid Interpretation Code [facility] [place] POC Subsection POC User ID [id number] Invalid Interpretation Code [facility] [place] POC Subsection POC Username ESTEFANY GUZMAN Invalid Interpretation Code [facility] [place] POC Subsection CHEMISTRYOrdered By: SYSTEM SYSTEM on 01-28-2022 Albumin [Mass/Vol] 3.5 g/dL Normal 3.3 - 5.0 gm/dL [facility] Remisol Albumin/Globulin [Mass ratio] 1.0 {ratio} Low 1.1 - 2.2 [facility] Remisol ALP [Catalytic activity/Vol] 85 [iU]/d Normal 21 - 98 Int._Unit/ L [facility] Remisol ALT No additional P-5'-P [Catalytic activity/Vol] 12 [iU]/d Normal 6 - 46 Int._Unit/ L [facility] Remisol AST [Catalytic activity/Vol] 16 [iU]/d Normal 5 - 43 Int._Unit/ L [facility] Remisol Bilirubin [Mass/Vol] 0.4 mg/dL Normal [...] Normal 0.0 - 8.0 % [facility] HemeAutoSS Eosinophils/Leukocyte s Auto (Bld) [Pure # fraction] 0.0 E9/L Normal 0.0 - 0.5 E9/L [facility] HemeAutoSS Lymphocytes/100 WBC (Bld) 5.7 % Low 14.0 - 50.0 % [facility] HemeAutoSS Lymphocytes/Leukocyte s Auto (Bld) [Pure # fraction] 0.8 E9/L Low 1.0 - 4.0 E9/L [facility] HemeAutoSS Monocytes/100 WBC (Bld) 8.6 % Normal 4.0 - 14.0 % [facility] HemeAutoSS Monocytes/Leukocytes Auto (Bld) [Pure # fraction] 1.2 E9/L High 0.2 - 1.0 E9/L [facility] HemeAutoSS Neutrophils/100 WBC (Bld) 85.6 % High 36.0 - 75.0 % [facility] HemeAutoSS Neutrophils/Leukocyte s Auto (Bld) [Pure # fraction] 11.8 E9/L [...] PM) Normal Negative [facility] UA Auto SS [place].plasma/Lith[place] m.RBC (Bld) [Mass ratio] 0-3 /HPF Normal 0-3/HPF [...] [facility] UA Auto SS Urobilinogen Qn (U) [id number] {Papa'U}/dL Normal 0.0 - 1.0 EU/dL [facility] UA Auto SS WBC Auto Ql (U) Negative (01/28/22 2:37 PM) Normal Negative [facility] UA Auto SS WBC LM.HPF (Urine sed) [#/Area] 0-5 /HPF Normal 0-5/HPF [facility] UA Auto SS CHEMISTRYOrdered By: Lab ROP User on 01-27-2022 Glucose [Mass/Vol] 187 mg/dL High 55 - 99 mg/dL [facility] [place] POC Subsection Comment on above: Result Comment: Fausto rubi RN/ POC Device SN [id number] Invalid Interpretation Code [facility] POC Subsection POC User ID [id number] Invalid Interpretation Code [facility] [place] POC Subsection POC Username ALEKSANDAR KING Invalid Interpretation Code [facility] [place] POC Subsection CHEMISTRYOrdered By: SYSTEM SYSTEM on 01-27-2022 Albumin [Mass/Vol] 4.2 g/dL Normal 3.3 - 5.0 gm/dL [facility] Remisol Albumin/Globulin [Mass ratio] 1.0 {ratio} Low 1.1 - 2.2 [facility] Remisol ALP [Catalytic activity/Vol] 99 [iU]/d High 21 - 98 Int._Unit/ L [facility] Remisol ALT No additional P-5'-P [Catalytic activity/Vol] 12 [iU]/d Normal 6 - 46 Int._Unit/ L [facility] Remisol Anion gap [Moles/Vol] 13 mmol/L Normal 6 - 16 mEq/L [facility] Remisol AST [Catalytic activity/Vol] 16 [iU]/d Normal 5 - 43 Int._Unit/ L [facility] Bilirubin [Mass/Vol] 0.4 mg/dL Normal [...] (S/P/Bld) [Vol rate/Area] 60 mL/min/1.73 m2 Normal >=59mL/min /1.73 m2 [facility] [place] Chem S GFR/1.73 sq M.predicted among non-blacks MDRD (S/P/Bld) [Vol rate/Area] 50 mL/min/1.73 m2 Low >=59mL/min /1.73 m2 [facility] S Globulin (S) [Mass/Vol] [...] Normal 0.0 - 8.0 % [facility] HemeAutoSS Eosinophils/Leukocyte s Auto (Bld) [Pure # fraction] 0.4 E9/L Normal 0.0 - 0.5 E9/L [facility] HemeAutoSS Lymphocytes/100 WBC (Bld) 19.0 % Normal 14.0 - 50.0 % [facility] HemeAutoSS Lymphocytes/Leukocyte s Auto (Bld) [Pure # fraction] 1.7 E9/L Normal 1.0 - 4.0 E9/L [facility] HemeAutoSS Monocytes/100 WBC (Bld) 8.3 % Normal 4.0 - 14.0 % [facility] HemeAutoSS Monocytes/Leukocytes Auto (Bld) [Pure # fraction] 0.7 E9/L Normal 0.2 - 1.0 E9/L [facility] HemeAutoSS Neutrophils/100 WBC (Bld) 67.7 % Normal 36.0 - 75.0 % [facility] HemeAutoSS Neutrophils/Leukocyte s Auto (Bld) [Pure # fraction] 6.1 E9/L [...] (Urine sed) [#/Area] 0-2 /HPF Normal 0-2/HPF [facility] [place] UA Aut o SS Glucose Test strip (U) [Mass/Vol] 3+ *ABN* (01/27/22 3:30 PM) Invalid Interpretation Code Negative [facility] UA Auto SS Hemoglobin Ql (U) Negative (01/27/22 3:30 PM) Normal Negative [facility] UA Auto SS Ketones (U) [Mass/Vol] Negative (01/27/22 3:30 PM) Normal Negative [facility] UA Auto SS [place].plasma/Lithiu m.RBC (Bld) [Mass ratio] 0-3 /HPF Normal 0-3/HPF [facility] UA Auto SS Mucus Ql (Urine sed) Trace (01/27/22 3:30 PM) Normal [facility] [place] UA Auto SS Nitrite Ql (U) Negative (01/27/22 3:30 PM) Normal Negative [facility] UA Auto SS pH (U) 6.0 *NA* (01/27/22 3:30 PM) Invalid Interpretation Code 5.0 - 9.0 [facility] [place] UA Auto SS Protein (U) [Mass/Vol] Negative (01/27/22 3:30 PM) Normal Negative [facility] UA Auto SS Specific gravity (U) [Rel density] <=1.005 *NA* (01/27/22 3:30 PM) Invalid Interpretation Code 1.005 - 1.030 [facility] UA Auto SS UA Spec Desc Clean Catch (01/27/22 3:30 PM) Normal [facility] [place] UA Auto SS Urobilinogen Qn (U) [id number] {Papa'U}/dL Normal 0.0 - 1.0 EU/dL [facility] UA Auto SS WBC Auto Ql (U) Negative (01/27/22 3:30 PM) Normal Negative [facility] [place] UA Auto SS WBC LM.HPF (Urine sed) [#/Area] 0-5 /HPF Normal 0-5/HPF [facility] UA Auto SS CHEMISTRYOrdered By: Lab ROP User on 11-17-2021 Glucose [Mass/Vol] 82 mg/dL Normal 55 - 99 mg/dL [facility] [place] POC Subsection Comment on above: Result Comment: Lucille ronak Meter POC Device SN [id number] Invalid Interpretation Code [facility] [place] POC Subsection POC User ID [id number] Invalid Interpretation Code [facility] [place] POC Subsection POC Username BHARGAV CANO Invalid Interpretation Code [facility] [place] POC Subsection Glucose [Mass/Vol] 126 mg/dL High 55 - 99 mg/dL [facility] [place] POC Subsection POC Device SN [id number] Invalid Interpretation Code [facility] [place] POC Subsection POC User ID [id number] Invalid Interpretation Code [facility] [place] POC Subsection POC Username AGUSTIN GARSIA Invalid Interpretation Code [facility] [place] POC Subsection CHEMISTRYOrdered By: SYSTEM SYSTEM on 11-17-2021 Albumin [Mass/Vol] 3.7 g/dL Normal 3.3 - 5.0 gm/dL [facility] Remisol Albumin/Globulin [Mass ratio] 1.1 {ratio} Normal 1.1 - 2.2 [facility] ALP [Catalytic activity/Vol] 73 [iU]/d Normal 21 - 98 Int._Unit/ L [facility] ALT No additional P-5'-P [Catalytic activity/Vol] 14 [iU]/d Normal 6 - 46 Int._Unit/ L [facility] Anion gap [Moles/Vol] 14 mmol/L Normal 6 - 16 mEq/L [facility] AST [Catalytic activity/Vol] 17 [iU]/d Normal 5 - 43 Int._Unit/ L [facility] Bilirubin [Mass/Vol] 0.3 mg/dL Normal 0.0 - 1 .1 mg/dL [facility] Calcium [Mass/Vol] 9.0 mg/dL Normal 8.9 - 11. 1 mg/dL [facility] Chloride [Moles/Vol] 107 mmol/L Normal 101 - 1 11 mmol/L [facility] CO2 [Moles/Vol] 18 mmol/L Low 21 - 31 mmol/L [facility] Creatinine [Mass/Vol] 1.1 mg/dL Normal 0.5 - 1.3 mg/dL [facility] GFR/1.73 sq M.predicted among blacks MDRD (S/P/Bld) [Vol rate/Area] 60 mL/min/1.73 m2 Normal >=59mL/min /1.73 m2 [facility] [place] Chem S GFR/1.73 sq M.predicted among non-blacks MDRD (S/P/Bld) [Vol rate/Area] 50 mL/min/1.73 m2 Low >=59mL/min /1.73 m2 [facility] [place] Chem S Globulin (S) [Mass/Vol] 3.5 g/dL Normal 1.4 - 4.0 gm/dL [facility] Glucose [Mass/Vol] 105 mg/dL Normal 55 - 199 mg/dL [facility] Lipase [Catalytic activity/Vol] 30 U/L Normal [...] Normal 0.0 - 8.0 % [facility] HemeAutoSS Eosinophils/Leukocyte s Auto (Bld) [Pure # fraction] 0.4 E9/L Normal 0.0 - 0.5 E9/L [facility] HemeAutoSS Lymphocytes/100 WBC (Bld) 30.0 % Normal 14.0 - 50.0 % [facility] HemeAutoSS Lymphocytes/Leukocyte s Auto (Bld) [Pure # fraction] 1.7 E9/L Normal 1.0 - 4.0 E9/L [facility] HemeAutoSS Monocytes/100 WBC (Bld) 14.6 % High 4.0 - 14.0 % [facility] HemeAutoSS Monocytes/Leukocytes Auto (Bld) [Pure # fraction] 0.8 E9/L Normal 0.2 - 1.0 E9/L [facility] HemeAutoSS Neutrophils/100 WBC (Bld) 47.6 % Normal 36.0 - 75.0 % [facility] HemeAutoSS Neutrophils/Leukocyte s Auto (Bld) [Pure # fraction] 2.7 E9/L [...] PM) Normal Negative [facility] UA Auto SS [place].plasma/Lithiu m.RBC (Bld) [Mass ratio] 0-3 /HPF Normal 0-3/HPF [...] [facility] UA Auto SS Urobilinogen Qn (U) [id number] {Papa'U}/dL Normal 0.0 - 1.0 EU/dL [facility] UA Auto SS WBC Auto Ql (U) Negative (11/17/21 7:06 PM) Normal Negative [facility] UA Auto SS WBC LM.HPF (Urine sed) [#/Area] 0-5 /HPF Normal 0-5/HPF [facility] UA Auto SS Vital Signs Date Time Vital Sign Value Performing Clinician Facility 12-08-2024 11:10-0400 Body height 160 cm Pac 1 Other Phone: [facility] 12-08-2024 11:10-0400 Body mass index (BMI) [Ratio] 27.73 kg/m2 Pacc 1 Other Phone: [facility] 12-08-2024 11:10-0400 Body temperature 96.8 [degF] Pacc 1 Other Phone: [facility] 12-08-2024 11:10-0400 Body weight 71 kg Pacc 1 Other Phone: [facility] 12-08-2024 11:10-0400 Diastolic blood pressure 51 mm[Hg] Pacc 1 Other Phone: [facility] 12-08-2024 11:10-0400 Heart rate 60 /min Pacc 1 Other Phone: [facility] 12-08-2024 11:10-0400 Respiratory rate 18 /min Pacc 1 Other Phone: [facility] 12-08-2024 11:10-0400 SaO2% (BldA) [Mass fraction] 99 % Pacc 1 Other Phone: [facility] 12-08-2024 11:10-0400 Systolic blood pressure 122 mm[Hg] Pacc 1 Other Phone: [facility] 11-23-2024 13:42-0400 Body height 162.6 cm Jenna Cordova MD Work Phone: [facility] 11-23-2024 13:42-0400 Body mass index (BMI) [Ratio] 27.28 kg/m2 Jenna Cordova MD Work Phone: [facility] 11-23-2024 13:42-0400 Body weight 72.1 kg Jenna Corodva MD Work Phone: [facility] 11-23-2024 13:42-0400 Diastolic blood pressure 63 mm[Hg] Jenna Cordova MD Work Phone: [facility] 11-23-2024 13:42-0400 Heart rate 82 /min Jenna Cordova MD Work Phone: [facility] 11-23-2024 13:42-0400 SaO2% (BldA) [Mass fraction] 96 % Jenna Cordova MD Work Phone: [facility] 11-23-2024 13:42-0400 Systolic blood pressure 148 mm[Hg] Jenna Cordova MD Work Phone: [facility] 08-23-2024 17:22-0400 Heart rate 63 /min [facility] 08-23-2024 17:22-0400 Respiratory rate 18 /min [facility] 08-23-2024 17:22-0400 SaO2% (BldA) [Mass fraction] 96 % [facility] 08-23-2024 17:22-0400 Diastolic blood pressure 79 mm[Hg] [facility] 08-23-2024 17:22-0400 Systolic blood pressure 187 mm[Hg] [facility] 08-23-2024 17:22-0400 Mean blood pressure 115 mm[Hg] [facility] 08-23-2024 16:52-0400 SaO2% (BldA) [Mass fraction] 97 % [facility] 08-23-2024 16:52-0400 Respiratory rate 17 /min [facility] 08-23-2024 16:52-0400 Heart rate 61 /min [facility] 08-23-2024 16:52-0400 Diastolic blood pressure 77 mm[Hg] [facility] 08-23-2024 16:52-0400 Systolic blood pressure 174 mm[Hg] [facility] 08-23-2024 16:52-0400 Mean blood pressure 109 mm[Hg] [facility] 08-23-2024 16:12-0400 Heart rate 60 /min [facility] 08-23-2024 16:12-0400 SaO2% (BldA) [Mass fraction] 98 % [facility] 08-23-2024 16:12-0400 Respiratory rate 18 /min [facility] 08-23-2024 16:12-0400 Diastolic blood pressure 72 mm[Hg] [facility] 08-23-2024 16:12-0400 Mean blood pressure 109 mm[Hg] [facility] 08-23-2024 16:12-0400 Systolic blood pressure 182 mm[Hg] [facility] 08-23-2024 15:31-0400 Body temperature 97.88 [degF] [facility] 08-23-2024 15:31-0400 Heart rate 62 /min [facility] 08-23-2024 15:31-0400 Respiratory rate 18 /min [facility] 08-23-2024 15:16-0400 Body temperature 97.88 [degF] [facility] 08-23-2024 15:16-0400 Heart rate 60 /min [facility] 08-23-2024 15:16-0400 Respiratory rate 20 /min [facility] 05-24-2024 14:49-0500 Blood Pressure Location Marcelo [facility] 05-24-2024 14:49-0500 Diastolic blood pressure 76 mm[Hg] [facility] 05-24-2024 14:49-0500 Heart rate 60 /min [facility] 05-24-2024 14:49-0500 SaO2% (BldA) [Mass fraction] 94 % [facility] 05-24-2024 14:49-0500 Systolic blood pressure 124 mm[Hg] [facility] 03-04-2024 11:40-0500 Blood Pressure Location [facility] 03-04-2024 11:40-0500 Diastolic blood pressure 79 mm[Hg] Marcelo [facility] 03-04-2024 11:40-0500 Heart rate 65 /min [facility] 03-04-2024 11:40-0500 SaO2% (BldA) [Mass fraction] 96 % Marcelo [facility] 03-04-2024 11:40-0500 Systolic blood pressure 122 mm[Hg] Marcel[facility] 12-30-2023 16:58-0400 Blood Pressure Location [facility] 12-30-2023 16:58-0400 Diastolic blood pressure 64 mm[Hg] Marcel[facility] 12-30-2023 16:58-0400 Heart rate 60 /min [facility] 12-30-2023 16:58-0400 SaO2% (BldA) [Mass fraction] 99 % Marcel[facility] 12-30-2023 16:58-0400 Systolic blood pressure 106 mm[Hg] Marcelo [facility] 11-28-2023 10:48-0400 Blood Pressure Location [facility] 11-28-2023 10:48-0400 Diastolic blood pressure 64 mm[Hg] Marcel[facility] 11-28-2023 10:48-0400 Heart rate 66 /min [facility] 11-28-2023 10:48-0400 SaO2% (BldA) [Mass fraction] 95 % Marcelo Link [facility] 11-28-2023 10:48-0400 Systolic blood pressure 112 mm[Hg] Marcelo Link [facility] 11-06-2023 14:37-0400 Blood Pressure Location Marcelo Link [facility] 11-06-2023 14:37-0400 Diastolic blood pressure 70 mm[Hg] Marcelo Link [facility] 11-06-2023 14:37-0400 Heart rate 64 /min Marcelo Link [facility] 11-06-2023 14:37-0400 SaO2% (BldA) [Mass fraction] 99 % Marcelo Link [facility] 11-06-2023 14:37-0400 Systolic blood pressure 106 mm[Hg] Marcelo Link [facility] 09-18-2023 14:35-0400 Blood Pressure Location Marcelo Link [facility] 09-18-2023 14:35-0400 Diastolic blood pressure 76 mm[Hg] Marcelo Link [facility] 09-18-2023 14:35-0400 Heart rate 64 /min Marcelo Link [facility] 09-18-2023 14:35-0400 SaO2% (BldA) [Mass fraction] 98 % Marcelo Link [facility] 09-18-2023 14:35-0400 Systolic blood pressure 124 mm[Hg] Marcelo [facility] 08-07-2023 11:41-0400 Blood Pressure Location Marcelo Link [facility] 08-07-2023 11:41-0400 Diastolic blood pressure 62 mm[Hg] Marcelo Link [facility] 08-07-2023 11:41-0400 Heart rate 69 /min [facility] 08-07-2023 11:41-0400 SaO2% (BldA) [Mass fraction] 97 % Marcelo Link [facility] 08-07-2023 11:41-0400 Systolic blood pressure 118 mm[Hg] Marcelo Link [facility] 07-01-2023 14:04-0400 Blood Pressure Location Marcelo Link [facility] 07-01-2023 14:04-0400 Diastolic blood pressure 78 mm[Hg] Marcelo Link [facility] 07-01-2023 14:04-0400 Heart rate 78 /min Marcelo Link [facility] 07-01-2023 14:04-0400 SaO2% (BldA) [Mass fraction] 97 % Amrcelo Link [facility] 07-01-2023 14:04-0400 Systolic blood pressure 136 mm[Hg] Marcelo Link [facility] 03-03-2023 13:45-0500 Body height 162.56 cm Ashish Chester Other [facility] Other 03-03-2023 13:45-0500 Body temperature 97.5 [degF] Ashish Chester Other [facility] Other 03-03-2023 13:45-0500 Diastolic blood pressure 55 mm[Hg] Ashish Chester Other [facility] Other 03-03-2023 13:45-0500 Systolic blood pressure 112 mm[Hg] Ashish Chester Other [facility] Other 02-13-2023 09:43-0500 Diastolic blood pressure 58 mm[Hg] Joaquim Casa Grande [facility] 02-13-2023 09:43-0500 Heart rate 60 /min JoaquimFanminder [facility] 02-13-2023 09:43-0500 Respiratory rate 16 /min Joaquim Casa [facility] 02-13-2023 09:43-0500 SaO2% (BldA) [Mass fraction] 99 % Joaquim Cas[place] [facility] 02-13-2023 09:43-0500 Systolic blood pressure 124 mm[Hg] Joaquim Casa [facility] 02-13-2023 08:39-0500 Heart rate 57 /min Joaquim Casa Grande [facility] 02-13-2023 08:39-0500 SaO2% (BldA) [Mass fraction] 98 % Joaquim Casa Grande [facility] 02-13-2023 08:37-0500 Respiratory rate 18 /min Joaquim Casa Grande [facility] 02-13-2023 08:37-0500 Diastolic blood pressure 73 mm[Hg] Joaquim Casa Grande [facility] 02-13-2023 08:37-0500 Mean blood pressure 94 mm[Hg] Joaquim Rice [facility] 02-13-2023 08:37-0500 Systolic blood pressure 136 mm[Hg] Joaquim Rice [facility] 02-13-2023 08:30-0500 Blood Pressure Location Joaquim Rice [facility] 02-13-2023 08:30-0500 Body temperature 98.06 [degF] Joaquim Rice [facility] 02-13-2023 08:30-0500 Diastolic blood pressure 53 mm[Hg] Joaquim Rice [facility] 02-13-2023 08:30-0500 Heart rate 61 /min Joaquim Rice [facility] 02-13-2023 08:30-0500 Mean blood pressure 78 mm[Hg] Joaquim Rice [facility] 02-13-2023 08:30-0500 Respiratory rate 11 /min Joaquim Rice [facility] 02-13-2023 08:30-0500 SaO2% (BldA) [Mass fraction] 97 % Joaquim Rice [facility] 02-13-2023 08:30-0500 Systolic blood pressure 129 mm[Hg] Joaquim Rice [facility] 02-13-2023 08:20-0500 Blood Pressure Location Joaquim Rice [facility] 02-13-2023 08:20-0500 Mean blood pressure 76 mm[Hg] Joaquim Rice [facility] 02-13-2023 08:20-0500 Respiratory rate 9 /min Joaquim Rice [facility] 02-13-2023 08:15-0500 Blood Pressure Location Joaquim Rice DFine [facility] 02-13-2023 08:15-0500 Mean blood pressure 76 mm[Hg] Joaquim Rice [facility] 02-13-2023 08:01-0500 Body temperature 97.16 [degF] Joaquim Rice [facility] 02-13-2023 07:55-0500 Respiratory rate 12 /min Joaquim Rice [facility] 02-13-2023 06:10-0500 Mean blood pressure 85 mm[Hg] Joaquim Rice [facility] 02-13-2023 06:09-0500 BP/Pulse Patient Position Joaquim Rice DFine [facility] 02-13-2023 06:09-0500 Mean blood pressure 87 mm[Hg] Joaquim Rice [facility] 02-13-2023 06:09-0500 Heart rate 60 /min Joaquim Rice DFine [facility] 02-13-2023 06:08-0500 Body temperature 97.7 [degF] Joaquim Rice DFine [facility] 02-03-2023 14:15-0500 Body height 162.56 cm Ashish Chester Other [facility] Other 02-03-2023 14:15-0500 Body temperature 97.4 [degF] Ashish Chester Other [facility] Other 02-03-2023 14:15-0500 Diastolic blood pressure 58 mm[Hg] Ashish Chester Other [facility] Other 02-03-2023 14:15-0500 Systolic blood pressure 103 mm[Hg] Ashish Chester Other [facility] Other 12-24-2022 18:02-0400 Hourly Rounding Joaquim Rice [facility] 12-24-2022 18:02-0400 Promise to Return Joaqium Rice [facility] 12-24-2022 18:00-0400 Blood Pressure Location Joaquim Rice [facility] 12-24-2022 18:00-0400 Body temperature 98.06 [degF] Joaquim Rice [facility] 12-24-2022 18:00-0400 Diastolic blood pressure 69 mm[Hg] Joaquim Rice [facility] 12-24-2022 18:00-0400 Heart rate 95 /min Joaquim Rice [facility] 12-24-2022 18:00-0400 Mean blood pressure 82 mm[Hg] Joaquim Rice [facility] 12-24-2022 18:00-0400 Respiratory rate 18 /min Joaquim Rice [facility] 12-24-2022 18:00-0400 SaO2% (BldA) [Mass fraction] 97 % Joaquim Rice [facility] 12-24-2022 18:00-0400 Systolic blood pressure 108 mm[Hg] Joaquim Rice [facility] 12-24-2022 17:41-0400 Hourly Rounding Joaquim Rice [facility] 12-24-2022 17:41-0400 Promise to Return Joaquim Rice [facility] 12-24-2022 16:00-0400 Hourly Rounding Joaquim Rice [facility] 12-24-2022 16:00-0400 Promise to Return Joaquim Rice [facility] 12-24-2022 15:43-0400 Heart rate 67 /min Joaquim Rice [facility] 12-24-2022 15:43-0400 SaO2% (BldA) [Mass fraction] 96 % Joaquim Rice [facility] 12-24-2022 15:42-0400 Body temperature 97.7 [degF] Joaquim Rice [facility] 12-24-2022 15:42-0400 Diastolic blood pressure 67 mm[Hg] Joaquim Rice [facility] 12-24-2022 15:42-0400 Mean blood pressure 87 mm[Hg] Joaquim Rice [facility] 12-24-2022 15:42-0400 Systolic blood pressure 127 mm[Hg] Joaquim Rice [facility] 12-24-2022 13:06-0400 gluc 194 mg/dL Joaquim Rice [facility] 12-24-2022 11:37-0400 Heart rate 67 /min Joaquim Rice [facility] 12-24-2022 11:37-0400 SaO2% (BldA) [Mass fraction] 95 % Joaquim Rice [facility] 12-24-2022 11:37-0400 Diastolic blood pressure 49 mm[Hg] Joaquim Rice [facility] 12-24-2022 11:37-0400 Mean blood pressure 67 mm[Hg] Joaquim Rice [facility] 12-24-2022 11:37-0400 Systolic blood pressure 103 mm[Hg] Joaquim Rice [facility] 12-24-2022 11:37-0400 Body temperature 97.7 [degF] Joaquim Rice [facility] 12-24-2022 07:39-0400 Mean blood pressure 76 mm[Hg] Joaquim Rice [facility] 12-24-2022 07:37-0400 Body temperature 97.7 [degF] Joaquim Rice [facility] 12-24-2022 02:43-0400 Respiratory rate 16 /min Joaquim Rice [facility] 12-24-2022 00:01-0400 Body temperature 99.68 [degF] Joaquim Rice [facility] 12-24-2022 00:01-0400 Respiratory rate 16 /min Joaquim Rice [facility] 12-23-2022 12:00-0400 Blood Pressure Location Joaquim Rice [facility] 12-23-2022 12:00-0400 Body temperature 97.34 [degF] Joaquim Rice [facility] 12-23-2022 12:00-0400 Heart rate 62 /min Joaquim Rice [facility] 12-22-2022 23:45-0400 gluc 123 mg/dL Joaquim Rice [facility] 12-22-2022 20:10-0400 Blood Pressure Location Joaquim Rice [facility] 12-22-2022 20:10-0400 Mean blood pressure 88 mm[Hg] Joaquim Rice [facility] 12-22-2022 12:37-0400 gluc 126 mg/dL Joaquim Rice [facility] 12-21-2022 20:00-0400 Mean blood pressure 67 mm[Hg] Joaquim Brown [facility] 12-20-2022 19:15-0400 Respiratory rate 16 /min Joaquim Brown [facility] 12-20-2022 19:00-0400 Respiratory rate 18 /min Joaquim Rice [facility] 12-20-2022 18:45-0400 Respiratory rate 11 /min Joaquim Rice [facility] 12-20-2022 16:21-0400 Heart rate 75 /min Joaquim Rice [facility] 12-19-2022 17:25-0400 Heart rate 66 /min Joaquim Rice [facility] 12-19-2022 16:52-0400 Diastolic blood pressure 46 mm[Hg] Joaquim Rice [facility] 12-19-2022 16:52-0400 Systolic blood pressure 105 mm[Hg] Joaquim Brown [facility] 11-29-2022 12:19-0400 Hourly Rounding Reymundo ARGUETASLIN [facility] 11-29-2022 12:19-0400 Promise to Return Reymundoelver ARGUETASLIN [facility] 11-29-2022 11:43-0400 Hourly Rounding Reymundo JULIAN [facility] 11-29-2022 11:43-0400 Promise to Return Reymundo JULIAN [facility] 11-29-2022 11:25-0400 Heart rate 79 /min Reymundo JULIAN [facility] 11-29-2022 11:25-0400 SaO2% (BldA) [Mass fraction] 92 % Reymundo JULIAN [facility] 11-29-2022 11:22-0400 Diastolic blood pressure 73 mm[Hg] Reymundo JULIAN [facility] 11-29-2022 11:22-0400 Mean blood pressure 97 mm[Hg] Reymundoelver ARGUETASLIN [facility] 11-29-2022 11:22-0400 Systolic blood pressure 143 mm[Hg] Reymundo JULIAN [facility] 11-29-2022 11:22-0400 Body temperature 98.06 [degF] Reymundoelver ARGUETASLIN [facility] 11-29-2022 10:33-0400 Hourly Rounding Reymundo ARGUETASLIN [facility] 11-29-2022 10:33-0400 Promise to Return Reymundoelver ARGUETASLIN [facility] 11-29-2022 09:40-0400 Diastolic blood pressure 75 mm[Hg] Reymundo JULIAN [facility] 11-29-2022 09:40-0400 Systolic blood pressure 160 mm[Hg] Reymundoelver ARGUETASLIN [facility] 11-29-2022 08:17-0400 Heart rate 83 /min Reymundoelver ARGUETASLIN [facility] 11-29-2022 08:17-0400 SaO2% (BldA) [Mass fraction] 93 % Reymundo JULIAN [facility] 11-29-2022 08:17-0400 Diastolic blood pressure 75 mm[Hg] Reymundo JULIAN [facility] 11-29-2022 08:17-0400 Mean blood pressure 104 mm[Hg] Reymundo JULIAN [facility] 11-29-2022 08:17-0400 Systolic blood pressure 160 mm[Hg] Reymundo JORDAN [facility] 11-29-2022 08:17-0400 Body temperature 97.88 [degF] Reymundo ARGUETASLIN [facility] 11-28-2022 23:45-0400 Blood Pressure Location Reymundoelver JORDAN [facility] 11-28-2022 23:45-0400 Body temperature 97.7 [degF] Reymundo JORDAN [facility] 11-28-2022 23:45-0400 Heart rate 68 /min Reymundoelver JORDAN [facility] 11-28-2022 23:45-0400 SaO2% (BldA) [Mass fraction] 95 % Reymundo JORDAN [facility] 11-28-2022 15:54-0400 Mean blood pressure 93 mm[Hg] Reymundo JORDAN [facility] 11-28-2022 15:54-0400 Body temperature 100.22 [degF] Reymundo JORDAN [facility] 11-28-2022 08:40-0400 Blood Pressure Location Reymundo JORDAN [facility] 11-28-2022 08:40-0400 Body temperature 97.88 [degF] Reymundo ARGUETASLIN [facility] 11-28-2022 08:40-0400 Mean blood pressure 86 mm[Hg] Reymundo ARGUETASLIN [facility] 11-28-2022 08:40-0400 Respiratory rate 16 /min Reymundo JORDAN [facility] 11-28-2022 00:15-0400 Blood Pressure Location Reymundo JULIAN [facility] 11-28-2022 00:15-0400 Respiratory rate 16 /min Reymundo JULIAN [facility] 11-27-2022 16:43-0400 Mean blood pressure 90 mm[Hg] Reymundo JULIAN [facility] 11-27-2022 11:40-0400 Mean blood pressure 79 mm[Hg] Reymundo JULIAN [facility] 11-27-2022 01:48-0400 Heart rate 18 /min Reymundo JULIAN [facility] 11-26-2022 16:27-0400 Heart rate 78 /min Reymundo JULIAN [facility] 11-26-2022 16:27-0400 Respiratory rate 18 /min Reymundo JULIAN [facility] 11-26-2022 11:43-0400 Heart rate 80 /min Reymundo JULIAN [facility] 11-25-2022 17:25-0400 Respiratory rate 13 /min Reymundo JULIAN [facility] 11-25-2022 17:00-0400 Respiratory rate 11 /min Reymundo JULIAN [facility] 11-25-2022 05:43-0400 gluc 98 mg/dL Reymundo JULIAN [facility] 11-24-2022 19:24-0400 gluc 115 mg/dL Reymundo JULIAN [facility] 11-24-2022 19:00-0400 Heart rate 70 /min Reymundo JULIAN [facility] 11-24-2022 12:25-0400 gluc 149 mg/dL Reymundo JORDAN [facility] 10-02-2022 15:23-0400 Body temperature 97.88 [degF] Raul Arnold [facility] 10-02-2022 15:23-0400 Diastolic blood pressure 80 mm[Hg] Raul Arnold [facility] 10-02-2022 15:23-0400 Heart rate 79 /min Raul Arnold [facility] 10-02-2022 15:23-0400 Respiratory rate 16 /min Raul Arnold [facility] 10-02-2022 15:23-0400 SaO2% (BldA) [Mass fraction] 100 % Raul Arnold [facility] 10-02-2022 15:23-0400 Systolic blood pressure 133 mm[Hg] Raul Arnold [facility] 09-04-2022 21:30-0400 Diastolic blood pressure 72 mm[Hg] Hari Michelle [facility] 09-04-2022 21:30-0400 Heart rate 60 /min Hari Michelle [facility] 09-04-2022 21:30-0400 Mean blood pressure 100 mm[Hg] Hari Micehlle [facility] 09-04-2022 21:30-0400 Respiratory rate 15 /min Hari Michelle [facility] 09-04-2022 21:30-0400 SaO2% (BldA) [Mass fraction] 97 % Hari Michelle [facility] 09-04-2022 21:30-0400 Systolic blood pressure 155 mm[Hg] Hari Michelle [facility] 09-04-2022 20:40-0400 Body temperature 97.52 [degF] Hari Michelle [facility] 09-04-2022 20:40-0400 Diastolic blood pressure 80 mm[Hg] Hari Michelle [facility] 09-04-2022 20:40-0400 Heart rate 67 /min Hari Michelle [facility] 09-04-2022 20:40-0400 Respiratory rate 17 /min Hari Michelle [facility] 09-04-2022 20:40-0400 SaO2% (BldA) [Mass fraction] 95 % Hari Michelle [facility] 09-04-2022 20:40-0400 Systolic blood pressure 176 mm[Hg] Hari Michelle [facility] 09-04-2022 20:25-0400 Body temperature 97.52 [degF] Hari Michelle [facility] 09-04-2022 20:25-0400 Diastolic blood pressure 75 mm[Hg] Marcelo Link [facility] 09-04-2022 20:25-0400 Heart rate 62 /min Hari Michelle [facility] 09-04-2022 20:25-0400 Respiratory rate 18 /min Hari Michelle [facility] 09-04-2022 20:25-0400 SaO2% (BldA) [Mass fraction] 99 % Hari Michelle [facility] 09-04-2022 20:25-0400 Systolic blood pressure 188 mm[Hg] Hari Reesner [facility] 09-04-2022 19:04-0400 Body temperature 97.88 [degF] Marcelo Link [facility] 09-04-2022 19:04-0400 Diastolic blood pressure 58 mm[Hg] Marcelo Link [facility] 09-04-2022 19:04-0400 Heart rate 63 /min Marcelo Link [facility] 09-04-2022 19:04-0400 Respiratory rate 15 /min Marcelo Link [facility] 09-04-2022 19:04-0400 SaO2% (BldA) [Mass fraction] 98 % Marcelo Link [facility] 09-04-2022 19:04-0400 Systolic blood pressure 139 mm[Hg] Marcelo Link [facility] 09-04-2022 18:32-0400 Body temperature 98.06 [degF] Marcelo Link [facility] 09-04-2022 18:32-0400 Diastolic blood pressure 64 mm[Hg] Marcelo Link [facility] 09-04-2022 18:32-0400 Heart rate 62 /min Marcelo Link [facility] 09-04-2022 18:32-0400 Mean blood pressure 92 mm[Hg] Marcelo Link [facility] 09-04-2022 18:32-0400 Respiratory rate 16 /min Marcelo Link [facility] 09-04-2022 18:32-0400 SaO2% (BldA) [Mass fraction] 97 % Marcelo Link [facility] 09-04-2022 18:32-0400 Systolic blood pressure 149 mm[Hg] Marcelo Link [facility] 09-04-2022 17:15-0400 Body temperature 97.7 [degF] Marcelo Link [facility] 09-04-2022 17:00-0400 Heart rate 64 /min Marcelo Link [facility] 09-04-2022 17:00-0400 Mean blood pressure 96 mm[Hg] Marcelo Link [facility] 09-04-2022 17:00-0400 Systolic blood pressure 137 mm[Hg] Marcelo Link [facility] 09-04-2022 15:10-0400 gluc 241 mg/dL Marcelo Link [facility] 09-04-2022 15:10-0400 gluc Marcelo Link [facility] 09-04-2022 15:00-0400 Hourly Rounding Marcelo Link [facility] 09-04-2022 15:00-0400 Promise to Return Marcelo Link [facility] 08-09-2022 14:34-0400 Body temperature 97.7 [degF] Raul Arnold [facility] 08-09-2022 14:29-0400 Diastolic blood pressure 64 mm[Hg] Raul Arnold [facility] 08-09-2022 14:29-0400 Heart rate 60 /min Raul Arnold [facility] 08-09-2022 14:29-0400 Mean blood pressure 88 mm[Hg] Raul Arnold [facility] 08-09-2022 14:29-0400 Respiratory rate 14 /min Raul Clayton [facility] 08-09-2022 14:29-0400 SaO2% (BldA) [Mass fraction] 95 % Raul Clayton [facility] 08-09-2022 14:29-0400 Systolic blood pressure 136 mm[Hg] Raul Clayton [facility] 08-09-2022 13:45-0400 Diastolic blood pressure 59 mm[Hg] Raul Clayton [facility] 08-09-2022 13:45-0400 Heart rate 62 /min Raul Clayton [facility] 08-09-2022 13:45-0400 Mean blood pressure 83 mm[Hg] Raul Clayton [facility] 08-09-2022 13:45-0400 Respiratory rate 10 /min Raul Clayton [facility] 08-09-2022 13:45-0400 SaO2% (BldA) [Mass fraction] 96 % Raul Clayton [facility] 08-09-2022 13:45-0400 Systolic blood pressure 130 mm[Hg] Raul Clayton [facility] 08-09-2022 13:32-0400 Body temperature 97.52 [degF] Raul Clayton [facility] 08-09-2022 13:32-0400 Diastolic blood pressure 57 mm[Hg] Raul Clayton [facility] 08-09-2022 13:32-0400 Heart rate 66 /min Raul Clayton [facility] 08-09-2022 13:32-0400 Respiratory rate 18 /min Raul Clayton [facility] 08-09-2022 13:32-0400 SaO2% (BldA) [Mass fraction] 95 % Raul Arnold [facility] 08-09-2022 13:32-0400 Systolic blood pressure 130 mm[Hg] Raul Arnold [facility] 08-09-2022 12:19-0400 gluc 212 mg/dL Raul Arnold [facility] 08-09-2022 12:19-0400 gluc Raul Arnold [facility] 08-09-2022 12:17-0400 Body temperature 97.88 [degF] Raul Arnold [facility] 08-09-2022 12:17-0400 Heart rate 74 /min Raul Arnold [facility] 08-09-2022 12:17-0400 Respiratory rate 16 /min Raul Arnold [facility] 07-18-2022 22:45-0400 Body temperature 98.06 [degF] Orquideaylinn Dokken [facility] 07-18-2022 22:45-0400 Diastolic blood pressure 56 mm[Hg] Kaylinn Dokken [facility] 07-18-2022 22:45-0400 Heart rate 80 /min Kaylinn Dokken [facility] 07-18-2022 22:45-0400 Respiratory rate 18 /min Kaylinn Dokken [facility] 07-18-2022 22:45-0400 SaO2% (BldA) [Mass fraction] 97 % Kaylinn Dokken [facility] 07-18-2022 22:45-0400 Systolic blood pressure 130 mm[Hg] Orquideaylinn Dokken [facility] 07-18-2022 22:30-0400 Body temperature 98.06 [degF] Kaylinn Dokken [facility] 07-18-2022 22:30-0400 Diastolic blood pressure 58 mm[Hg] Kaylinn Dokken [facility] 07-18-2022 22:30-0400 Heart rate 85 /min Orquideaylinn Dokken [facility] 07-18-2022 22:30-0400 Respiratory rate 16 /min Orquideaylinn Dokken [facility] 07-18-2022 22:30-0400 SaO2% (BldA) [Mass fraction] 95 % Jairinn Dokken [facility] 07-18-2022 22:30-0400 Systolic blood pressure 101 mm[Hg] Orquideaylinn Dokken [facility] 07-18-2022 16:15-0400 Diastolic blood pressure 84 mm[Hg] [facility] 16:15-0400 Heart rate 90 /[facility] 07-18-[facility]22 16:15-0400 Respiratory rate 16 /min [facility] 07-18-2022 16:15-0400 SaO2% (BldA) [Mass fraction] 98 % [facility] 07-18-2022 16:15-0400 Systolic blood pressure 135 mm[Hg] [facility] 04-10-2022 11:05-0500 Diastolic blood pressure 83 mm[Hg] Callahan SALAM [facility] 04-10-2022 11:05-0500 Mean blood pressure 106 mm[Hg] Callahan SALAM [facility] 04-10-2022 11:05-0500 Systolic blood pressure 151 mm[Hg] Callahan SALAM [facility] 04-10-2022 11:02-0500 Blood Pressure Location Callahan SALAM [facility] 04-10-2022 11:02-0500 Diastolic blood pressure 86 mm[Hg] Callahan SALAM [facility] 04-10-2022 11:02-0500 Heart rate 70 /min Callahan SALAM [facility] 04-10-2022 11:02-0500 Respiratory rate 16 /min Callahan SALAM [facility] 04-10-2022 11:02-0500 SaO2% (BldA) [Mass fraction] 98 % Callahan SALAM [facility] 04-10-2022 11:02-0500 Systolic blood pressure 142 mm[Hg] Callahan SALAM [facility] 04-03-2022 18:00-0500 Diastolic blood pressure 54 mm[Hg] Raul Arnold [facility] 04-03-2022 18:00-0500 Heart rate 66 /min Raul Arnold [facility] 04-03-2022 18:00-0500 Mean blood pressure 78 mm[Hg] Raul Arnold [facility] 04-03-2022 18:00-0500 Respiratory rate 11 /min Raul Arnold [facility] 04-03-2022 18:00-0500 SaO2% (BldA) [Mass fraction] 92 % Raul Clayton [facility] 04-03-2022 18:00-0500 Systolic blood pressure 126 mm[Hg] Raul Clayton [facility] 04-03-2022 16:51-0500 Body temperature 98.24 [degF] Raul Clayton [facility] 04-03-2022 16:51-0500 Diastolic blood pressure 72 mm[Hg] Raul Clayton [facility] 04-03-2022 16:51-0500 Heart rate 72 /min Raul Clayton [facility] 04-03-2022 16:51-0500 Respiratory rate 16 /min Raul Clayton [facility] 04-03-2022 16:51-0500 SaO2% (BldA) [Mass fraction] 99 % Raul Clayton [facility] 04-03-2022 16:51-0500 Systolic blood pressure 120 mm[Hg] Raul Clayton [facility] 04-03-2022 16:36-0500 Body temperature 98.24 [degF] Raul Clayton [facility] 04-03-2022 16:36-0500 Diastolic blood pressure 52 mm[Hg] Raul Clayton [facility] 04-03-2022 16:36-0500 Heart rate 71 /min Raul Clayton [facility] 04-03-2022 16:36-0500 Respiratory rate 16 /min Raul Clayton [facility] 04-03-2022 16:36-0500 SaO2% (BldA) [Mass fraction] 99 % Raul Clayton [facility] 04-03-2022 16:36-0500 Systolic blood pressure 135 mm[Hg] Raul Arnold [facility] 04-02-2022 10:15-0500 Diastolic blood pressure 69 mm[Hg] Isaak Marinelli [facility] 04-02-2022 10:15-0500 Heart rate 66 /min Isaak Godfreye [facility] 04-02-2022 10:15-0500 Respiratory rate 20 /min Isaak oGdfreye [facility] 04-02-2022 10:15-0500 SaO2% (BldA) [Mass fraction] 97 % Isaak Marinelli [facility] 04-02-2022 10:15-0500 Systolic blood pressure 150 mm[Hg] sIaak Godfreye [facility] 04-02-2022 09:44-0500 Body temperature 97.52 [degF] Isaak Godfreye [facility] 04-02-2022 09:44-0500 Diastolic blood pressure 81 mm[Hg] Isaak Marinelli [facility] 04-02-2022 09:44-0500 Heart rate 64 /min Isaak Marinelli [facility] 04-02-2022 09:44-0500 Respiratory rate 20 /min Isaak Godfreye [facility] 04-02-2022 09:44-0500 SaO2% (BldA) [Mass fraction] 95 % Isaak Yves [facility] 04-02-2022 09:44-0500 Systolic blood pressure 138 mm[Hg] Isaak Godfreye [facility] 03-13-2022 19:11-0500 Diastolic blood pressure 45 mm[Hg] Raul Clayton [facility] 03-13-2022 19:11-0500 Heart rate 65 /min Raul Clayton [facility] 03-13-2022 19:11-0500 Mean blood pressure 74 mm[Hg] Raul Clayton [facility] 03-13-2022 19:11-0500 Respiratory rate 18 /min Raul Clayton [facility] 03-13-2022 19:11-0500 SaO2% (BldA) [Mass fraction] 99 % Raul Clayton [facility] 03-13-2022 19:11-0500 Systolic blood pressure 133 mm[Hg] Raul Clayton [facility] 03-13-2022 18:00-0500 Diastolic blood pressure 56 mm[Hg] Raulvesna Arnold [facility] 03-13-2022 18:00-0500 Heart rate 66 /min Raul Clayton [facility] 03-13-2022 18:00-0500 SaO2% (BldA) [Mass fraction] 91 % Raul Clayton [facility] 03-13-2022 18:00-0500 Systolic blood pressure 171 mm[Hg] Raul Arnold [facility] 03-13-2022 16:38-0500 Body temperature 97.52 [degF] Raulvesna Arnold [facility] 03-13-2022 16:38-0500 Diastolic blood pressure 61 mm[Hg] Raul Clayton [facility] 03-13-2022 16:38-0500 Heart rate 67 /min Raul Arnold [facility] 03-13-2022 16:38-0500 Mean blood pressure 94 mm[Hg] Raul Clayton [facility] 03-13-2022 16:38-0500 Respiratory rate 18 /min Raul Clayton [facility] 03-13-2022 16:38-0500 SaO2% (BldA) [Mass fraction] 95 % Raul Clayton [facility] 03-13-2022 16:38-0500 Systolic blood pressure 160 mm[Hg] Raul Clayton [facility] 02-08-2022 22:25-0500 Diastolic blood pressure 77 mm[Hg] Kaylinn Dokken [facility] 02-08-2022 22:25-0500 Heart rate 79 /min Kaylinn Dokken [facility] 02-08-2022 22:25-0500 Respiratory rate 18 /min Kaylinn Dokken [facility] 02-08-2022 22:25-0500 SaO2% (BldA) [Mass fraction] 96 % Kaylinn Dokken [facility] 02-08-2022 22:25-0500 Systolic blood pressure 185 mm[Hg] Kaylinn Dokken [facility] 02-08-2022 21:51-0500 Diastolic blood pressure 79 mm[Hg] Kaylinn Dokken [facility] 02-08-2022 21:51-0500 Heart rate 78 /min Kaylinn Dokken [facility] 02-08-2022 21:51-0500 Hourly Rounding Kaylinn Dokken [facility] 02-08-2022 21:51-0500 Nursing Progress Note Reason Other: Pt mediciated per orders. Call light in reach. Denies any needs at this time. Ty Manrique [facility] 02-08-2022 21:51-0500 Respiratory rate 18 /min Ty Manrique [facility] 02-08-2022 21:51-0500 SaO2% (BldA) [Mass fraction] 96 % Ty Manrique [facility] 02-08-2022 21:51-0500 Systolic blood pressure 176 mm[Hg] Yulyn Burton [facility] 02-08-2022 21:15-0500 Diastolic blood pressure 66 mm[Hg] Yulyn Burton [facility] 02-08-2022 21:15-0500 Heart rate 74 /min Ty Manrique [facility] 02-08-2022 21:15-0500 Hourly Rounding Ty Manrique [facility] 02-08-2022 21:15-0500 Nursing Progress Note Reason Other: UA obtained and sent to lab. Ty Manrique [facility] 02-08-2022 21:15-0500 Respiratory rate 18 /min Ty Manrique [facility] 02-08-2022 21:15-0500 SaO2% (BldA) [Mass fraction] 96 % Yulyn Husseinen [facility] 02-08-2022 21:15-0500 Systolic blood pressure 154 mm[Hg] Yulyn Dokken [facility] 02-08-2022 20:30-0500 Body temperature 98.24 [degF] Ty Manrique [facility] 02-03-2022 05:00-0500 Body temperature 98.24 [degF] Vadim Gusman [facility] 02-03-2022 05:00-0500 Diastolic blood pressure 66 mm[Hg] Vadim Naseem [facility] 02-03-2022 05:00-0500 Heart rate 63 /min Vadim Naseem [facility] 02-03-2022 05:00-0500 Mean blood pressure 95 mm[Hg] Vadim Naseem [facility] 02-03-2022 05:00-0500 Respiratory rate 13 /min Vadim Naseem [facility] 02-03-2022 05:00-0500 SaO2% (BldA) [Mass fraction] 90 % Vadim Naseem [facility] 02-03-2022 05:00-0500 Systolic blood pressure 153 mm[Hg] Vadim Naseem [facility] 02-03-2022 04:00-0500 Body temperature 98.6 [degF] Vadim Naseem [facility] 02-03-2022 04:00-0500 Diastolic blood pressure 69 mm[Hg] Vadim Naseem [facility] 02-03-2022 04:00-0500 Mean blood pressure 99 mm[Hg] Vadim Naseem [facility] 02-03-2022 04:00-0500 Respiratory rate 14 /min Vadim Naseem [facility] 02-03-2022 04:00-0500 SaO2% (BldA) [Mass fraction] 92 % Vadim Naseem [facility] 02-03-2022 04:00-0500 Systolic blood pressure 159 mm[Hg] Vadim Naseem [facility] 02-03-2022 03:00-0500 Mean blood pressure 100 mm[Hg] Vadim Naseem [facility] 02-03-2022 03:00-0500 Respiratory rate 39 /min Vadim Naseem [facility] 02-03-2022 03:00-0500 SaO2% (BldA) [Mass fraction] 91 % Vadim Naseem [facility] 02-03-2022 03:00-0500 Systolic blood pressure 163 mm[Hg] Vadim Naseem [facility] 02-03-2022 01:14-0500 gluc 186 mg/dL Vadim Naseem [facility] 02-03-2022 01:14-0500 gluc Vadim Naseem [facility] 02-03-2022 01:10-0500 Heart rate 70 /min Vadim Naseem [facility] 02-03-2022 01:10-0500 Respiratory rate 20 /min Vadim Naseem [facility] 02-02-2022 14:00-[address] [facility] 02-02-2022 14:00-0400 BP/Pulse Patient Position [facility] 02-02-2022 14:00-0400 Respiratory rate 18 /min [facility] 02-02-2022 13:00-[address] [facility] 02-02-2022 12:33-[address] [facility] 02-02-2022 12:33-[address] [facility] 02-02-2022 11:09-0400 Body temperature 97.88 [degF] [facility] 02-02-2022 11:09-0400 Diastolic blood pressure 75 mm[Hg] [facility] 02-02-2022 11:09-0400 Heart rate 65 /min [facility] 02-02-2022 11:09-0400 Mean blood pressure 101 mm[Hg] [facility] 02-02-2022 11:09-0400 SaO2% (BldA) [Mass fraction] 94 % [facility] 02-02-2022 11:09-0400 Systolic blood pressure 154 mm[Hg] [facility] 02-02-2022 11:09-0400 Respiratory rate 20 /min [facility] 02-02-2022 11:00-[address] [facility] 02-02-2022 08:58-[address] [facility] 02-02-2022 07:29-0400 Body temperature 97.88 [degF] [facility] 02-02-2022 07:29-0400 Diastolic blood pressure 65 mm[Hg] [facility] 02-02-2022 07:29-0400 Heart rate 69 /min [facility] 02-02-2022 07:29-0400 Mean blood pressure 95 mm[Hg] [facility] 02-02-2022 07:29-0400 SaO2% (BldA) [Mass fraction] 92 % [facility] 02-02-2022 07:29-0400 Systolic blood pressure 153 mm[Hg] [facility] 02-02-2022 06:21-[address] [facility] 02-02-2022 02:05-0400 Body temperature 97.7 [degF] [facility] 02-02-2022 02:05-0400 Diastolic blood pressure 62 mm[Hg] [facility] 02-02-2022 02:05-0400 Heart rate 73 /min [facility] 02-02-2022 02:05-0400 Mean blood pressure 78 mm[Hg] [facility] 02-02-2022 02:05-0400 SaO2% (BldA) [Mass fraction] 93 % [facility] 02-02-2022 02:05-0400 Systolic blood pressure 112 mm[Hg] [facility] 02-01-2022 21:24-0400 gluc 261 mg/dL [facility] 02-01-2022 19:35-[address] [facility] 02-01-2022 19:35-0400 BP/Pulse Patient Position [facility] 02-01-2022 19:35-0400 Respiratory rate 16 /min [facility] 02-01-2022 16:59-0400 gluc 225 mg/dL [facility] 02-01-2022 16:11-[address] [facility] 02-01-2022 16:11-0400 BP/Pulse Patient Position [facility] 02-01-2022 11:11-0400 Mean blood pressure 123 mm[Hg] [facility] 02-01-2022 08:33-0400 Heart rate 78 /min [facility] 02-01-2022 08:08-0400 gluc 119 mg/dL [facility] 02-01-2022 05:20-0400 Heart rate 88 /min [facility] 02-01-2022 03:08-0400 Mean blood pressure 82 mm[Hg] [facility] 02-01-2022 01:01-0400 Mean blood pressure 88 mm[Hg] [facility] 01-31-2022 21:13-0400 Heart rate 83 /min [facility] 01-30-2022 14:00-0400 Mean blood pressure 88 mm[Hg] [facility] 01-30-2022 12:19-0400 Hourly Rounding [facility] 01-30-2022 12:19-0400 [facility] 01-30-2022 12:00-0400 Body temperature 98.06 [degF] [facility] 01-30-2022 12:00-0400 Diastolic blood pressure 72 mm[Hg] [facility] 01-30-2022 12:00-0400 Heart rate 71 /min [facility] 01-30-2022 12:00-0400 SaO2% (BldA) [Mass fraction] 96 % [facility] 01-30-2022 12:00-0400 Systolic blood pressure 122 mm[Hg] [facility] 01-30-2022 11:19-0400 [facility] 01-30-2022 11:19-0400 Promise to Return [facility] 01-30-2022 10:48-0400 Hourly Rounding [facility] 01-30-2022 10:48-0400 [facility] 01-30-2022 08:00-0400 Body temperature 97.52 [degF] [facility] 01-30-2022 08:00-0400 Diastolic blood pressure 49 mm[Hg] [facility] 01-30-2022 08:00-0400 Heart rate 79 /min [facility] 01-30-2022 08:00-0400 SaO2% (BldA) [Mass fraction] 91 % [facility] 01-30-2022 08:00-0400 Systolic blood pressure 132 mm[Hg] [facility] 01-30-[facility]22 06:00-0400 Diastolic blood pressure 46 mm[Hg] [facility] 01-30-2022 06:00-0400 Heart rate 64 /min ramona [facility] 01-30-2022 06:00-0400 Mean blood pressure 70 mm[Hg] ramona [facility] 01-30-2022 06:00-0400 Respiratory rate 19 /min ramona [facility] 01-30-2022 06:00-0400 SaO2% (BldA) [Mass fraction] 94 % [facility] 01-30-2022 06:00-0400 Systolic blood pressure 110 mm[Hg] [facility] 01-30-2022 05:00-0400 Respiratory rate 14 /min ramona [facility] 01-30-2022 04:00-0400 Body temperature 97.88 [degF] [facility] 01-30-2022 04:00-0400 Mean blood pressure 73 mm[Hg] ramona [facility] 01-30-2022 00:00-0400 Body temperature 97.52 [degF] [facility] 01-29-2022 19:00-0400 Body temperature 98.06 [degF] ramona [facility] 01-29-2022 16:31-0400 gluc 154 mg/dL [facility] 01-29-2022 11:00-0400 gluc 211 mg/dL [facility] 01-29-2022 08:00-0400 gluc 130 mg/dL [facility] 01-29-2022 07:00-0400 Blood Pressure Location [facility] 01-28-2022 19:00-0400 Respiratory rate 14 /min [facility] 01-28-2022 18:14-0400 Heart rate 73 /min [facility] 01-28-2022 18:14-0400 Respiratory rate 15 /min [facility] 01-28-2022 17:00-0400 Respiratory rate 18 /min [facility] 01-28-2022 12:01-0400 Heart rate 99 /min [facility] 01-27-2022 17:31-0400 Diastolic blood pressure 60 mm[Hg] [facility] 01-27-2022 17:31-0400 Heart rate 63 /min [facility] 01-27-2022 17:31-0400 Mean blood pressure 99 mm[Hg] [facility] 01-27-2022 17:31-0400 Respiratory rate 20 /min [facility] 01-27-2022 17:31-0400 SaO2% (BldA) [Mass fraction] 97 % [facility] 01-27-2022 17:31-0400 Systolic blood pressure 177 mm[Hg] [facility] 01-27-2022 16:59-0400 Diastolic blood pressure 81 mm[Hg] [facility] 01-27-2022 16:59-0400 Heart rate 68 /min [facility] 01-27-2022 16:59-0400 Mean blood pressure 117 mm[Hg] [facility] 01-27-2022 16:59-0400 Respiratory rate 19 /min [facility] 01-27-2022 16:59-0400 SaO2% (BldA) [Mass fraction] 97 % [facility] 01-27-2022 16:59-0400 Systolic blood pressure 190 mm[Hg] [facility] 01-27-2022 16:00-0400 Diastolic blood pressure 73 mm[Hg] [facility] 01-27-2022 16:00-0400 Mean blood pressure 106 mm[Hg] [facility] 01-27-2022 16:00-0400 SaO2% (BldA) [Mass fraction] 99 % [facility] 01-27-2022 16:00-0400 Systolic blood pressure 171 mm[Hg] [facility] 01-27-2022 14:45-0400 Body temperature 97.88 [degF] [facility] 01-27-2022 14:45-0400 Heart rate 65 /min [facility] 11-17-2021 19:35-0400 Diastolic blood pressure 83 mm[Hg] Isaak Godfreye [facility] 11-17-2021 19:35-0400 Heart rate 73 /min Isaak Godfreye [facility] 11-17-2021 19:35-0400 Hourly Rounding Isaak Godfreye [facility] 11-17-2021 19:35-0400 Respiratory rate 18 /min Isaak Godfreye [facility] 11-17-2021 19:35-0400 SaO2% (BldA) [Mass fraction] 94 % Isaak Yves [facility] 11-17-2021 19:35-0400 Systolic blood pressure 186 mm[Hg] Isaak Yves [facility] 11-17-2021 18:28-0400 Diastolic blood pressure 59 mm[Hg] Isaak Yves [facility] 11-17-2021 18:28-0400 Heart rate 69 /min Isaak Godfreye [facility] 11-17-2021 18:28-0400 Mean blood pressure 96 mm[Hg] Isaak Marinelli [facility] 11-17-2021 18:28-0400 Respiratory rate 14 /min Isaak Godfreye [facility] 11-17-2021 18:28-0400 SaO2% (BldA) [Mass fraction] 93 % Isaak Godfreye [facility] 11-17-2021 18:28-0400 Systolic blood pressure 171 mm[Hg] Isaak Godfreye [facility] 11-17-2021 17:30-0400 Body temperature 97.88 [degF] Isaak Godfreye [facility] 11-17-2021 17:30-0400 Diastolic blood pressure 75 mm[Hg] Isaak Godfreye [facility] 11-17-2021 17:30-0400 Heart rate 78 /min Isaak Godfreye [facility] 11-17-2021 17:30-0400 Respiratory rate 20 /min Isaak Godfreye [facility] 11-17-2021 17:30-0400 SaO2% (BldA) [Mass fraction] 95 % Isaak Godfreye [facility] 11-17-2021 17:30-0400 Systolic blood pressure 144 mm[Hg] Isaak Godfreye [facility] Encounters Encounter Date Encounter Type Care Provider Facility Start: 12-08-2025 ambulatory Marcelo Call Facility:[facility] Start: 12-10-2024 End: 12-10-2024 ambulatory [facility] Facility:[facility] Start: 12-08-2024 Encounter for other preprocedural examination [facility] Start: 12-08-2024 End: 12-08-[address] Other Phone: Pre Anesthesia Comment on above: Pre-op evaluation (P rimary Dx); Primary hypertension; Mixed hyperlipidemia; Chronic GERD; Other specified diabetes mellitus without complication, with long-term current use of insulin (HCC); Iron deficiency anemia, unspecified iron deficiency anemia type; Bipolar affective disorder, remission status unspecified ([facility]) Start: 12-08-2024 End: 12-08-2024 Preprocedural examination done Pac [address] Other Phone: [facility] Work Phone: Start: 12-07-2024 End: 12-07-2024 ambulatory Marcelo C Link Facility:[facility] Start: 12-07-2024 End: 12-07-2024 Patient encounter procedure Marcelo C Link [facility] Start: 12-07-2024 End: 12-07-2024 ambulatory Marcelo C Link Facility:[facility] Start: 12-07-2024 End: 12-07-2024 Patient encounter procedure Marcelo C Link [facility] Start: 12-07-2024 End: 12-07-2024 Well adult monitoring check done Marcelo C Link [facility] Start: 12-06-2024 End: 12-06-2024 Telephone encounter Jenna Cordova MD Work Phone: Pre Anesthesia Comment on above: PreOp Call Start: 11-25-2024 End: 12-01-2024 Admission to same day surgery center Stanford Hernandez RN Work Phone: Pre Anesthesia Comment on above: Preparations For Odette velasquez (PACC) Start: 11-25-2024 End: 12-01-2024 ambulatory Stanford Hernandez RN Work Phone: Pre Anesthesia Start: 11-23-2024 End: 11-23-2024 Admission to same day surgery center Rajesh M Marino RN Colorectal Surgery Comment on above: Anorectal Polyp Start: 11-23-2024 End: 11-23-2024 ambulatory Rajesh Marino RN Colorectal Surgery Start: 11-23-2024 End: 11-23-2024 Patient encounter procedure Jenna Cordova MD Work Phone: Colorectal Surgery Comment on above: Rectal polyp (Primar y Dx); 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) Start: 11-05-2024 End: 11-05-2024 ambulatory Marcelo C Link Facility:[facility] Start: 11-05-2024 End: 11-05-2024 Patient encounter procedure Marcelo C Link [facility] Start: 11-04-2024 ambulatory Marcelo C Link Facility:[facility] Start: 10-28-2024 End: 11-26-2024 ambulatory Marcelo C Link Facility:[id number] Start: 10-22-2024 End: 10-27-2024 Evaluation and management of inpatient DO Sanaz ALEJANDRA Facility:[facility] Start: 10-22-2024 Emergency department patient visit Barrett Gomez Facility:[facility] Start: 10-05-2024 ambulatory Earnest Guevara Facility :[facility] Start: 09-26-2024 End: 09-26-2024 Emergency department patient visit Vadim Gusman [facility] Start: 09-21-2024 End: 09-21-2024 ambulatory Marcelo C Link Facility:[facility] Start: 09-21-2024 End: 09-21-2024 Patient encounter procedure Marcelo C Link [facility] Start: 08-23-2024 End: 08-23-2024 Emergency department patient visit Earnest Guevara [facility] Start: 06-18-2024 End: 06-18-2024 ambulatory Marcelo C Link Facility:[facility] Start: 05-24-2024 End: 05-24-2024 ambulatory Marcelo C Link Facility:[facility] Start: 05-24-2024 End: 05-24-2024 Patient encounter procedure Marcelo C Link [facility] Start: 04-27-2024 End: 04-27-2024 ambulatory JOSÉMichael VIRK Facility:[facility] Start: 04-26-2024 ambulatory Earnest Guevara Facility :[facility] Start: 03-28-2024 End: 03-29-2024 Clinisync Result Encounter Generic External Data Provider [facility] External Department Unsolicited Start: 03-28-2024 End: 03-29-2024 Clinisync Result Encounter Generic External Data Provider [facility] External Department Unsolicited Start: 03-04-2024 End: 03-04-2024 ambulatory Marcelo C Link Facility:[facility] Start: 03-04-2024 End: 03-04-2024 Patient encounter procedure Marcelo C Link [facility] Start: 01-01-2024 End: 01-01-2024 ambulatory Marcelo C Link Facility:[facility] Start: 01-01-2024 End: 01-01-2024 Patient encounter procedure Marcelo C Link [facility] Start: 12-30-2023 End: 12-30-2023 Lab Drop off Marcelo C Link [facility] Start: 12-30-2023 End: 12-30-2023 ambulatory Marcelo C Link Facility:[facility] Start: 12-30-2023 End: 12-30-2023 Patient encounter procedure Marcelo C Link [facility] Start: 11-28-2023 End: 11-28-2023 ambulatory Marcelo C Link Facility:[facility] Start: 11-28-2023 End: 11-28-2023 Lab Drop off Marcelo C Link [facility] Start: 11-28-2023 End: 11-28-2023 Well adult monitoring check done Marcelo C Link [facility] Start: 11-28-2023 End: 11-28-2023 Patient encounter procedure Marcelo C Link [facility] Start: 11-06-2023 End: 11-06-2023 Patient encounter procedure Marcelo C Link [facility] Start: 10-20-2023 End: 10-20-2023 ambulatory ARNOLD D H[place]S Not Available Start: 09-23-2023 End: 09-23-2023 Patient encounter procedure Arnold D [place] [facility] Start: 09-22-2023 End: 09-22-2023 ambulatory ARNOLD D HILLS Not Available Start: 09-18-2023 End: 09-18-2023 Patient encounter procedure Marcelo C Link [facility] Start: 08-07-2023 End: 08-07-2023 Patient encounter procedure Marcelo C Link [facility] Start: 08-01-2023 End: 08-01-2023 Patient encounter procedure Marcelo C Link [facility] Start: 07-01-2023 End: 07-01-2023 Patient encounter procedure Marcelo C Link [facility] Start: 07-01-2023 End: 07-01-2023 ambulatory JOAQUIM RICE Not Available Start: 05-20-2023 End: 05-20-2023 ambulatory JOAQUIM RICE Not Available Start: 05-20-2023 End: 05-24-2023 Pre-admission assessment Joaquim Rice [facility] Start: 05-12-2023 Telephone encounter Joaquim Stoll malgorzata DO Work Phone: [facility] Start: 05-09-2023 End: 05-21-2023 Pre-admission assessment Joaquim Rice [facility] Start: 03-12-2023 End: 03-27-2023 Pre-admission assessment Joaquim Rice [facility] Start: 03-03-2023 End: 03-03-2023 ambulatory Ashish Chester Other [employer] Other Start: 03-03-2023 Office outpatient vi sit 25 minutes Ashish Chester [facility] Start: 02-13-2023 End: 02-13-2023 Admission to same day surgery center Joaquim Rice [facility] Start: 02-03-2023 End: 02-03-2023 ambulatory Ashish Chester Other [employer] Other Start: 02-03-2023 Office outpatient vi sit 25 minutes Ashish Chester [facility] Start: 01-13-2023 End: 01-13-2023 ambulatory Ashish Chester Other [employer] Other Start: 01-13-2023 Telephone encounter Ashish Chester [facility] Start: 12-19-2022 End: 12-24-2022 Evaluation and management of inpatient Joaquim Rice [facility] Start: 12-08-2022 End: 12-08-2022 [facility] Start: 12-03-2022 End: 12-03-2022 Off-Site [facility] Start: 11-24-2022 End: 11-29-2022 Evaluation and management of inpatient Reymundo JORDAN [facility] Start: 10-02-2022 End: 10-02-2022 Emergency department patient visit Raul Arnold [facility] Start: 09-04-2022 End: 09-04-2022 Emergency department patient visit Hari Martinez [facility] Start: 09-04-2022 End: 09-04-2022 Emergency department patient visit Marcelo Jakub [facility] Start: 08-09-2022 End: 08-09-2022 Emergency department patient visit Raul Arnold [facility] Start: 07-18-2022 End: 07-18-2022 Emergency department patient visit Ty Manrique [facility] Start: 07-18-2022 End: 08-09-2022 ambulatory UNKNOWN PROVIDER Facility:[facility] Start: 07-18-2022 End: 07-18-2022 ambulatory [facility] Emer[facility]c y Triage, Treat and Transport Start: 07-18-2022 End: 07-18-2022 Emergency department patient visit [facility] Emergency Triage, Treat and Transport Comment on above: Arrived Start: 04-10-2022 End: 04-10-2022 Patient encounter procedure [place] DIAZ [facility] Start: 04-03-2022 End: 04-03-2022 Emergency department patient visit Raul Arnold [facility] Start: 04-02-2022 End: 04-02-2022 Emergency department patient visit Isaak Marinelli [facility] Start: 03-13-2022 End: 03-13-2022 Emergency department patient visit Raul Arnold [facility] Start: 03-05-2022 End: 03-05-2022 Patient encounter procedure Marcelo C Link [facility] Start: 02-13-2022 End: 02-13-2022 Patient encounter procedure Marcelo C Link [facility] Start: 02-08-2022 End: 02-08-2022 Emergency department patient visit Ty Manrique [facility] Start: 02-03-2022 End: 02-03-2022 Emergency department patient visit Vadim Gusman [facility] Start: 01-31-2022 End: 02-02-2022 Observation Kilo HARRIS [facility] Start: 01-29-[address] Chuck lee [facility] Facility: Start: 01-28-2022 End: 01-30-2022 Observation Nomi Hart [facility] Start: 01-28-2022 End: 01-28-2022 Patient encounter procedure Jean Claude Schaeffer [facility] Start: 01-27-2022 End: 01-27-2022 Emergency department patient visit Earnest Guevara [facility] Start: 11-17-2021 End: 11-17-2021 Emergency department patient visit Isaak Marinelli [facility] Start: 11-09-2021 End: 11-09-2021 Patient encounter procedure Marcelo C Link [facility] Start: 11-08-2021 End: 11-14-2021 Pre-admission assessment Marcelo C Link [facility] Start: 10-15-2021 End: 10-15-2021 Patient encounter procedure Marcelo C Link [facility] Procedures Date Procedure Procedure Detail Performing Clinician Start: 10-26-2024 Colonoscopy Marcelo Link Start: 10-26-2024 Esophagogastroduodenoscopy Marcelo Link Start: 09-28-2024 Colonoscopy Marcelo Link Start: 09-28-2024 Endoscopy Marcelo Link Start: 03-28-2024 [facility] UA (CLEAN/CATCH) MICROSCOPIC IF INDICATE Generic External Data Provider Start: 04-11-2023 Aspiration of hip joint Joaquim Rice Start: 02-13-2023 Aspiration of hip joint Joaquim Rice Comment on above: d/t infection Start: 12-20-2022 Repair of fracture of hip by nailing using fluoroscopic guidance Joaquim Rice Start: 11-25-2022 History of hemiarthroplasty of right hip Reymundo JORDAN Start: 05-09-2022 Esophagogastroduodenoscopy yT eugene Start: 08-16-2020 Arthroscopy of shoulder Marcelo Call Start: 03-11-2019 Excision of mass of neck Marcelo Link Comment on above: REMOVAL OF LEFT NECK MASS Start: 12-22-2018 Mammography Joaquim Rice DO Work Phone: Start: 03-10-2018 Arthroplasty of finger Marcelo Call Comment on above: Right basilar thumb tendon interposition al arthroplasty with palmaris longus and 50% FCR graft, extensor tenodesis, splint application, mini-fluoroscopy Start: 10-31-2016 Colonoscopy Joaquim Rice Work Phone: Start: 10-03-2014 percutaneous pinning left hip Marcelo Link Start: 12-07-2013 left total knee replacement with hardware removal Marcelo Link Start: 06-08-2013 right total knee arthroplasty Marcelo Link Start: 12-14-2012 Right knee surgery Marcelo Link BASILAR ARTHROPLASTY OF THUMB 3 Marcelo Call Comment on above: LEFT BASILAR ARTHROPLASTY OF THUMB 4 Joaquimraquel Rice Comment on above: LEFT Cyst - diagnostic aspiration Marcelo Link Comment on above: Left shoulder blade Extracorporeal shock wave lithotripsy of calculus of kidney Marcelo Link gallbladder removed Marcelo Bunn k jaw surgery Marcelo Link left knee ORIF Marcelo Link Total abdominal hyst erectomy with bilateral salpingo-oophorectomy 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, 6 Marcelo [employer] Comment on above: 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 6, 7 Joaquim Rice Comment on above: left benign Plan of Treatment Date Care Activity Detail Author Start: 10-31-2026 Screening for malign ant [facility]oplasm [facility] Start: 12-10-2024 End: 12-10-2024 Admission to same day surgery center 12/10/2024 1:50 PM EDT - 12/10/2024 3:30 PM EDT Surgery [facility] [address] [place] [address] Jenna Cord[place] [id number] [place] [address] EXCISE RECTAL TUMOR VIA TRANSANAL APPROACH [facility] Comment on above: EXCISE RECTAL TUMOR VIA TRANSANAL APPROACH Start: 12-10-2024 End: 12-10-2024 Exc rct alicia not incl muscularis propria EXCISE RECTAL TUMOR VIA TRANSANAL APPROACH Anorectal polyp 12/10/2024 1:50 PM EDT [facility] Start: 12-10-2024 Subsequent hospital visit by physician 12/10/2024 1:50 PM EDT Hospital Encounter [facility] [address] [place] [address] [place] [address] [place] [address] Anorectal polyp [K62.0, K62.1] [facility] Comment on above: Anorectal polyp [K62 .0, K62.1] Start: 12-08-2024 End: 12-08-2024 Patient encounter procedure 12/08/2024 11:00 AM EDT PAT Pre Anesthesia [id number] [place] [address] 1, [address] [place] [address] 12/10 HDAI IN PERSON EXCISE RECTAL TUMOR VIA TRANSANAL APPROACH [10216] - Anus Pre Anesthesia Comment on above: 12/10 HDAI IN PERSON EXCISE RECTAL TUMOR VIA TRANSANAL APPROACH [41600] - Anus Start: 12-06-2024 End: 12-06-2024 Patient encounter procedure 12/06/2024 8:20 AM EDT PAT Pre Anesthesia [address] [place] [address] 1, [address] [place] [address] 12/10 HDAI IN PERSON EXCISE RECTAL TUMOR VIA TRANSANAL APPROACH [74913] - Anus Pre Anesthesia Comment on above: 12/10 HDAI IN PERSON EXCISE RECTAL TUMOR VIA TRANSANAL APPROACH [94012] - Anus Start: 11-29-2024 Influenza vaccination Influenza Vacc ine (#1) [facility] Start: 03-31-2024 Advance Directive Discussion Advance Directive Discussion [facility] Start: 11-30-2023 Influenza vaccination Influenza Vacc ine (#1) [facility] Start: 11-29-2022 Influenza vaccination Influenza Vacc ine (#1) [facility] Start: 10-30-2020 Urine microalbumin profile DTaP,Tdap,Td Vaccine (2 - Td or Tdap) [facility] Start: 12-23-2019 Screening for malign ant neoplasm of breast [facility] Start: 10-10-2019 Pneumococcal vaccination Pneumococcal Vaccine(s) (65+ yrs) ([facility] - [facility] Start: 10-10-2019 Pneumococcal Vaccine : 65+ Years (3 - PPSV23 or PCV20) Pneumococcal Vaccine: 65+ Years (3 - PPSV23 or PCV20) [facility] Start: 10-10-2019 Pneumococcal Vaccine : 65+ Years (3 of 3 - PPSV23 or PCV20) Pneumococcal Vaccine: 65+ Years (3 of 3 - PPSV23 or PCV20) [facility] Start: 10-10-2019 Screening for osteoporosis [facility] Start: 06-10-2018 Pneumococcal Vaccine : 50+ (3 of 3 - PCV20 or PCV21) Pneumococcal Vaccine: 50+ (3 of 3 - PCV20 or PCV21) [facility] Start: 10-31-2017 Screening for malign ant neoplasm of colon [facility] Start: 2014 RSV Vaccine (1 - Ris k 60-74 years 1-dose series) RSV Vaccine (1 - Risk 60-74 years 1-dose series) [facility] Start: 05-01-2012 Medicare Annual Wellness Visit Medicare Annual Wellness Visit [facility] Start: 2004 Shingles (RZV) Vacci ne (1 of 2) Shingles (RZV) Vaccine (1 of 2) [facility] Start: 2004 Shingrix Vaccine (1 of 2) Shingrix Vaccine (1 of 2) [facility] Start: 10-10-1999 Cholesterol [Mass/volume] in Serum or Plasma Cholesterol [facility] Start: 10-10-1999 Screening for malign ant neoplasm of colon [facility] Start: 1994 Screening for malign ant neoplasm of breast Mammography [facility] Start: 1973 Pneumococcal Vaccine : 50+ (1 of 2 - PCV) Pneumococcal Vaccine: 50+ (1 of 2 - PCV) [facility] Start: 1973 Urine microalbumin profile DTaP,Tdap,Td Vaccine (1 - Tdap) [facility] Start: 1972 Annual PCP Team Per Diem Interpreter marquez Disease Visit Annual PCP Team Chronic Disease Visit [facility] Start: 1972 Hepatitis B surface antibody level LDL Cholesterol [facility] Start: 1972 Hepatitis C screening M [facility] Start: 1972 Tetanus + diphtheria + acellular pertussis vaccine (product) Tdap Booster [facility] Start: 1964 Diabetic foot examination Diabetic Foot Exam [facility] Start: 1964 Glaucoma screening Dilated Retinal E xam [facility] Start: 1964 Hepatitis B screening Urine Albumin:Creatinine Ratio [facility] Start: 10-10-1959 Hemoglobin A1c measurement HbA1C [facility] Start: 04-11-1955 COVID-19 Vaccine (#1) COVID-19 Vacci ne (#1) [facility] Start: 1954 Screening for malign ant neoplasm of colon [facility] Immunizations Immunization Date Immunization Notes Care Provider Carley vincent 03-31-2023 influenza virus vaccine, unspecified formulation Marcelo Link [facility] Femi Comment on above: Result Comment: Ginger ent notes UTD 12-29-2022 influenza virus vaccine, unspecified formulation Marcelo Link [facility] Comment on above: Result Comment: nurs ing home 07-30-2020 SARS-CoV-2 (COVID-19 ) mRNA BNT-162b2 vax Jean Claude Akkina [facility] 07-10-2020 SARS-CoV-2 (COVID-19 ) mRNA BNT-162b2 vax Jean Claude Akkina [facility] 03-01-2020 influenza virus vaccine, unspecified formulation Jean Claude Akkina [facility] 03-31-2019 SARS-CoV-2 (COVID-19 ) mRNA BNT-162i1 vax Marcelo Link [facility] 12-30-2018 influenza virus vaccine, unspecified formulation Jean Claude Akkina [facility] 12-30-2017 influenza virus vaccine, unspecified formulation Jean Claude Akkina [facility] 06-10-2013 pneumococcal conjuga te vaccine, 13 valent Jean Claude Akkina [facility] 06-10-2013 influenza, seasonal, injectable Marcelo Link [facility] 06-10-2013 pneumococcal polysaccharide vaccine, 23 valent Marcelo Link [facility] 10-30-2010 tetanus toxoid, redu polina diphtheria toxoid, and acellular pertussis vaccine, adsorbed Marcelo Link [facility] Comment on above: Early/Late Reason: O THER: 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 reports that she had an Adacel injection less than 5 years ago. Payers Date Payer Category Payer Medicaid [id number] 2021 Medicaid [id number] 2021 Unknown [id number] 2012 Medicare [id number] 2012 Medicare [id number] 1954 Unknown [id number] 2.16. 840.1.876156.3.579.2.356 1954 Unknown [id number] 2.16. 840.1.765522.3.579.2.356 1954 Unknown [id number] 2.16. 840.1.997219.3.579.2.732 1954 Unknown [id number] 2.16.84 0.1.522771.3.579.2.1259 1954 Unknown [id number] 2.16.84 0.1.792877.3.579.2.125 1954 Unknown [id number] 2.16.84 0.1.820478.3.579.2.1259 1954 Unknown [id number] 2.16.84 0.1.565910.3.579.2.125 1954 Unknown [id number] 2.16.84 0.1.552078.3.579.2.125 1954 Unknown [id number] 2.16.84 0.1.452005.3.579.2.125 1954 Unknown [id number] 2.16.84 0.1.978976.3.579.2.1259 1954 Unknown [id number] 2.16.84 0.1.528266.3.579.2.1259 1954 Unknown [id number] 2.16.8 40.1.317760.3.579.2. 1954 Unknown [id number] 2.16.8 40.1.143502.3.579.2. 1954 Unknown [id number] 2.16.8 40.1.473153.3.579.2. 1954 Unknown [id number] 2.16.8 40.1.109111.3.579.2. 1954 Unknown [id number] 2.16.8 40.1.498065.3.579.2. 1954 Unknown [id number] 2.16.8 40.1.828441.3.579.2. 1954 Unknown [id number] 2.16.8 40.1.933938.3.579.2. 1954 Unknown [id number] 2.16.8 40.1.511134.3.579.2. 1954 Unknown [id number] 2.16.8 40.1.249318.3.579.2. 1954 Unknown [id number] 2.16.8 40.1.041033.3.579.2. 1954 Unknown [id number] 2.16.8 40.1.048706.3.579.2. 1954 Unknown [id number] 2.16.8 40.1.385425.3.579.2. 1954 Unknown [id number] 2.16.8 40.1.448558.3.579.2. 1954 Unknown [id number] 2.16.8 40.1.533165.3.579.2. 1954 Unknown [id number] 2.16.8 40.1.360948.3.579.2.727 1954 Unknown [id number] 2.16.8 40.1.763921.3.579.2.727 1954 Unknown [id number] 2.16.8 40.1.805905.3.579.2.727 1954 Unknown [id number] 2.16.8 40.1.993336.3.579.2.727 1954 Unknown [id number] 2.16.8 40.1.879106.3.579.2.72 1954 Unknown [id number] 2.16.8 40.1.821544.3.579.2.727 1954 Unknown [id number] 2.16.8 40.1.467104.3.579.2.727 1954 Unknown [id number] 2.16.8 40.1.014953.3.579.2.727 1954 Unknown [id number] 2.16.8 40.1.415538.3.579.2.72 1954 Unknown [id number] 2.16.8 40.1.442495.3.579.2.727 1954 Unknown [id number] 2.16.8 40.1.818459.3.579.2.727 1954 Unknown [id number] 2.16.8 40.1.389954.3.579.2.727 1954 Unknown [id number] 2.16.8 40.1.896580.3.579.2.727 Social History Date Type Detail Facility Start: 04-20-2013 End: 01-19-2021 Tobacco smoking status Never smoked tobacco (finding) [facility] Comment on above: denchele Start: 03-01-2012 Tobacco smoking status Never [facility] Comment on above: denies Start: 03-06-2020 End: 02-06-2023 Sex Assigned At Female [facility] Tobacco smoking status NHIS Tobacco smoking consumption unknown [facility] Start: 1955 [facility] Comment on above: denies Tobacco smoking status [facility] Start: 12-19-2022 Tobacco use and exposure Smokeless tobacco non-user [facility] Start: 04-10-2023 End: 10-20-2023 Alcohol intake Lifetime non-drinker (finding) [facility] Start: 03-06-2020 End: 02-06-2023 History of Social function [facility] Start: 08-04-2013 Sex Female (finding) [facility] Start: 11-23-2024 End: 12-08-2024 Alcoholic beverage intake Current non-drinker of alcohol (finding) [facility] Medical Equipment Procedure Code Equipment Code Equipment Origin al Text Equipment Identifier Dates HIP BIPOLAR ARTHROPLASTY Joaquim Rice DO 11/25/22 Non Biological Hip R {[id number] FDA Start: 11-25-2022 HIP TOTAL ARTHRO PLASTY REVISION Joaquim Rice DO A 12/20/22 Unknown Hip R FDA Start: 12-20-2022 HIP TOTAL ARTHRO PLASTY REVISION Hasmukh Joaquim DUVALL A 12/20/22 Unknown Hip R FDA Start: 12-20-2022 HIP TOTAL ARTHRO PLASTY REVISION Hasmukh Joaquim DUVALL A 12/20/22 Unknown Hip R [...] 12/20/22 Unknown Hip R FDA Start: 12-20-2022 Goals Date Patient Goal Desired Activity /State Personal health goal Functional Status Date Assessment Result Facility 08-23-2024 Functional Status N/A [facility] 05-24-2024 Functional Status N/A [facility] 03-04-2024 Functional Status N/A [facility] 12-30-2023 Functional Status N/A [facility] 11-28-2023 Functional Status N/A [facility] 11-06-2023 Functional Status N/A [facility] 09-18-2023 Functional Status N/A [facility] 08-07-2023 Functional Status N/A [facility] 07-01-2023 Functional Status N/A [facility] 02-12-2023 Functional Status No [facility] 12-19-2022 Functional Status N/A [facility] 11-24-2022 Functional Status No [facility] 11-24-2022 Functional Status [facility] 10-02-2022 Functional Status N/A [facility] 09-04-2022 Functional Status N/A [facility] 09-04-2022 Functional Status N/A [facility] 08-09-2022 Functional Status N/A [facility] 07-18-2022 Functional Status N/A [facility] 04-10-2022 Functional Status N/A [facility] 04-03-2022 Functional Status N/A [facility] 04-02-2022 Functional Status N/A [facility] 03-13-2022 Functional Status N/A [facility] 02-08-2022 Functional Status N/A [facility] 02-03-2022 Functional Status N/A [facility] 02-01-2022 Functional Status No [facility] 01-31-2022 Functional Status [facility] 01-28-2022 Functional Status N/A [facility] 01-28-2022 Functional Status [facility] 01-27-2022 Functional Status N/A [facility] 11-17-2021 Functional Status N/A [facility] 11-11-2013 Are you deaf, or do you have serious difficulty hearing No 11/11/2013 11:07 AM EDT Danay Mello LPN No [facility] 11-11-2013 Are you blind, or do you have serious difficulty seeing, even when wearing glasses No 11/11/2013 11:07 AM EDT Danay Mello LPN No [facility] 11-11-2013 Do you have serious difficulty walking or climbing stairs Yes 11/11/2013 11:07 AM EDT Danay Mello LPN Yes [facility] 11-11-2013 Do you have difficul ty dressing or bathing No 11/11/2013 11:07 AM EDT Danay Mello LPN No [facility] 11-11-2013 Because of a physica l, mental, or emotional condition, do you have difficulty doing errands alone such as visiting a physician's office or shopping No 11/11/2013 11:07 AM EDT Danay Mello LPN No [facility] Mental Status Date Assessment Result Facility 11-11-2013 Because of a physica l, mental, or emotional condition, do you have serious difficulty concentrating, remembering, or making decisions No 11/11/2013 11:07 AM EDT Danay Mello LPN No [facility] Clinical Notes 11-17-2021 to 12-08-2024 Addendum Note - Kristin Justice PA-C - 12/08/2024 2:28 PM EDTAddendum Note - Kristin Justice PA-C - 12/08/2024 2:28 PM EDTAddendum Note - Kristin Justice PA-C - 12/08/2024 1:17 PM EDT Note Date & Type Note Facility 12-08-2024 Note Addended by: KRISTIN VARMA on: 12/08/2024 02:28 PM Modules accepted: Orders [facility] 12-08-2024 Miscellaneous Notes Addended by: KRISTIN JUSTICE on: 12/08/2024 02:28 PM Modules accepted: Orders Addended by: KRISTIN JUSTICE on: 12/08/2024 01:17 PM Modules accepted: Orders documented in this encounter [facility] 12-08-2024 Note Addended by: KRISTIN VARMA on: 12/08/2024 01:17 PM Modules accepted: Orders [facility] 12-08-2024 History and physical note Images from the original note were not included. [facility] HISTORY AND PHYSICAL EXAMINATION SERVICE DATE: 12/08/2024 SERVICE TIME: 11:09 AM PRIMARY CARE PHYSICIAN: Emanuel Rutledge MD, MD REASON FOR VISIT: Fartun Schneider is a 69 year old female who is scheduled for EXCISE RECTAL TUMOR VIA TRANSANAL APPROACH at the request of Dr. Jenna Cordova for consultation. My final recommendation will be communicated back to the requesting physician by way of shared medical record or letter. Assessment 1. Pre-op evaluation (Z01.818) - Undergoing risk assessment for upcoming surgery on 12/10/2024 for removal of anal-rectal and colonic lesions found on colonoscopy last month. - No prior anesthesia complications reported. - Advised to follow bowel prep instructions and maintain clear liquid diet the day before surgery; no solid food starting tomorrow. 2. Primary hypertension (I10) - Stable on current regimen; continue lisinopril as prescribed. Asymptomatic, PCP following. Last 14 BP Last 14 Encounter BP Readings: Date: BP: 12/08/2024 122/51 11/23/2024 148/63 11/11/2013 158/81 04/20/2013 130/74 3. Mixed hyperlipidemia (E78.2) - Stable on current regimen; continue atorvastatin as prescribed. No cardiac stents. 4. Chronic GERD (K21.9) - Well-controlled on omeprazole. 5. Other specified diabetes mellitus without complication, with long-term current use of insulin (HCC) (E13.9) - Well-controlled; most recent A1c 5.7% two weeks ago, prior A1c 5.3% per patient. Will get updated labs from assisted living. Fasting glucose today was 103. - On Lantus 10 units nightly, Novolog PRN for elevated blood glucose, and Trulicity (held for surgery), last dose 11/29/24. Advised clear liquid diet 24 hours prior to surgery, patient already planning this to complete bowel prep. - Advised to hold Novolog on the morning of surgery. - Advised to take 75% of usual Lantus dose the evening before surgery; if unable, may take usual dose. 6. Iron deficiency anemia, unspecified iron deficiency anemia type (D50.9) - Stable; continue oral iron supplementation. Per patient, her recent labs were stable. Will get updated labs. Asymptomatic. 7. Bipolar affective disorder, remission status unspecified (HCC) (F31.9) - Stable on current regimen; continue Valium, Paxil, bupropion, and Celexa as prescribed. ANESTHESIA FINDINGS: Intubation History: No history of difficult intubation Significant Anesthesia Considerations: none Airway History: No history of difficult airway [place] Activity Status Index: METS: Walk indoors, such as around the house (1.75 METs) Do light work around the house, such as dusting or washing dishes (2.70 METs) Take care of self; that is eating, dressing, bathing, using the toilet (2.75 METs) Walk a block or two on level ground (2.75 METs) DASI Score: 9.95 (Uses walker for ambulation) Patient denies any chest pain or undue shortness of breath with the above physical activity. Clinical Frailty Scale: 3. Well, with treated comorbid disease STOP-Bang Score: Has or is being treated for high blood pressure Patient over 50 years old Denies snoring loudly Has not been observed to stop breathing or choking/gasping during sleep BMI less than or equal to 35 kg/m^2 Does not have a large neck Non-male patient STOP-Bang Score: 2 I - PHYSICAL EVALUATION AIRWAY Patient intubated: No. Tracheostomy tube not present Mallampati: I. TM distance: >3 FB. Neck ROM: full ROM without neurological symptoms. Mouth openin FB. Short neck: no. Thick neck: no Ruiz present: no Lip Bite Test: II Microretrognathia/Micronagthia/Recesse d Chin: No DENTAL Dentures, upper: complete. Dentures, lower: complete. II - ANESTHESIA PLAN Informed Consent Prepared for surgery: This patient is optimally prepared for surgery. CONSULTS: PCP for recent labs. Letter faxed to patient's assisted living facility where she recently had updated labs. The Following Tests/Procedures Have Been Initiated: Orders Placed This Encounter DISCONTD: insulin glargine (LANTUS) 100 unit/mL injection Sig: Inject 100 Units subcutaneously daily at bedtime. insulin aspart U-100 (NOVOLOG) 100 unit/mL (3 mL) pen Sig: Inject 9 Units subcutaneously as needed (elevated glucose). insulin glargine (LANTUS) 100 unit/mL injection Sig: Inject 10 Units subcutaneously daily at bedtime. Order Comments: Generic or brand: dispense product preferred by patient/insurance unless LEANDRO flag is selected. , EKG not indicated per [facility] protocol Labs reviewed from 2023 and 2022 in [facility]. Planned Anesthetic: Per anesthesia choice Subjective CHIEF COMPLAINT: Anorectal polyp [K62.0, K62.1] HPI: Patient is a 69 year old female presenting to pre-anesthesia consultation. Fartun Schneider is a 69-year-old female with a history of diabetes mellitus, anxiety, depression, GERD, and anemia, presenting for preoperative evaluation prior to surgery for anal rectal and colonic tumors. Fartun reports the discovery of a tumor in the anal rectal area and another in the colon during a colonoscopy performed last month in [place]. The colonoscopy was conducted due to severe bloating and pain in the lower abdomen, which she describes as unbearable. She denies hematochezia but reports persistent nausea and a recent episode of severe diarrhea. She is currently preparing for surgery to remove these tumors and has been instructed to follow a bowel preparation regimen. Family history of colon cancer is unknown as she was adopted. She has been recommended for the above surgery. REVIEW OF SYSTEMS: PAIN ASSESSMENT: GENERAL: Negative for weight loss or fever. Positive for chronic fatigue. HEENT: Negative for frequent or significant headaches, no changes in vision or hearing, negative for nose bleeds. Positive for post nasal drip. NECK: Positive for chronic neck pain. Negative for lumps, goiter, or significant neck swelling. RESPIRATORY: Positive for mild cough with PND, negative for dyspnea or shortness of breath. CARDIOVASCULAR: Negative for chest pain, leg swelling, CHF, or palpitations. GI: Positive for chronic nausea, intermittent diarrhea, and abdominal pain. Denies vomiting, blood in stool, or black stool. GENITOURINARY: No history of dysuria, frequency, or incontinence. MUSCULOSKELETAL: Positive for chronic back pain and right hip pain, negative for new joint pain or swelling, and no muscle pain. SKIN: Negative for lesions, rash, and itching. PSYCH: Positive for anxiety and depression. HEMATOLOGY/LYMPHOLOGY: No bleeding concerns. NEURO: No history of headaches, syncope, paralysis, seizures, or tremors. ENDOCRINE: No history of polydipsia, increased thirst, or other endocrine symptoms. The patient has the following: ACTIVE PROBLEM LIST Diabetes (Hcc) Stress Anxiety and Depression Arthritis of Both Knees Back Pain Bipolar Disorder (Hcc) Chronic Gerd Htn (Hypertension) Hyperlipidemia Hypothyroidism Iron Deficiency Anemia Covid Immunization Dates This patient has no relevant Health Maintenance data. PAST MEDICAL HISTORY Diagnosis Date Diabetes (HCC) PAST SURGICAL HISTORY Procedure Laterality Date COLONOSCOPY 10/2024 PAST SURGICAL HISTORY OF right knee scrapping PAST SURGICAL HISTORY OF left thumb arthritis surgery PAST SURGICAL HISTORY OF Fatty tumor removed left shoulder PAST SURGICAL HISTORY OF Right right hip fracture with spacer due to hx of infection TOTAL KNEE REPLACEMENT Bilateral FAMILY HISTORY Adopted: Yes Problem Relation Age of Onset other (unknown [Other]) Other SOCIAL HISTORY[1] Prior to Admission medications as of 12/08/24 1125 Medication Sig Last Dose Taking insulin aspart U-100 (NOVOLOG) 100 unit/mL (3 mL) pen Inject 9 Units subcutaneously as needed (elevated glucose). Yes insulin glargine (LANTUS) 100 unit/mL injection Inject 10 Units subcutaneously daily at bedtime. Yes diazePAM (VALIUM) 2 mg tablet Take 2 mg by mouth every 12 hours. Yes dicyclomine (BENTYL) 10 mg capsule Take 10 mg by mouth before meals and at bedtime. Yes ferrous sulfate 325 mg (65 mg iron) tablet Take 325 mg by mouth once daily. Yes gabapentin (NEURONTIN) 300 mg capsule Take 300 mg by mouth once daily. Yes levothyroxine (SYNTHROID) 112 mcg tablet Take 112 mcg by mouth once daily. Yes nystatin (MYCOSTATIN) powder Apply 1 application to affected area two times a day. Yes omeprazole (PRILOSEC) 20 mg capsule Take 20 mg by mouth once daily. Yes ondansetron orally disintegrating (ZOFRAN ODT) 4 mg disintegrating tablet Take 4 mg by mouth every 8 hours as needed. Yes oxyCODONE-acetaminophen (PERCOCET) 5-325 mg tablet Take 1 tablet by mouth every 6 hours as needed. Yes potassium chloride 20 mEq TbER Yes TRULICITY 0.75 mg/0.5 mL pen injector Inject 0.75 mg subcutaneously one time a week. Yes atorvastatin (LIPITOR) 40 mg tablet Take 40 mg by mouth once daily. Yes buPROPion (WELLBUTRIN) 75 mg tablet Take 75 mg by mouth two times a day. Yes PARoxetine (PAXIL) 40 mg tablet Take 40 mg by mouth once daily. Yes TRAZODONE 100 mg tablet daily at bedtime. Yes TRAMADOL 50 mg tablet every 4 hours as needed. Yes LISINOPRIL 10 mg tablet once daily. Yes CITALOPRAM HYDROBROMIDE (CELEXA ORAL) Take by mouth once daily. Yes No medication comments found. ALLERGIES Allergen Reactions Celebrex [Celecoxib] Unknown Gold Lopez [[place]* Unknown Neosporin [Benzalko* Unknown Penicillin G Unknown Objective PHYSICAL EXAM: VITALS: BP 122/51 Pulse 60 Temp (Src) 96.8 (Temporal) Resp 18 Ht 5' 3 (1.60m) Wt 156 lb 8.4 oz (71.0kg) SpO2 99% BMI 27.73 kg/(m^2). General: Alert and oriented Skin: Normal color, no rash, no lesions. HEENT: EOM, pupils equal, round and reactive. Cardiovascular: Normal S1 & S2, no rubs, murmurs or gallops. No JVD. Pulse regular. Lungs: Normal breath sounds, no wheezes or crackles. Abdomen: Soft, mild tenderness in lower abdomen with palpation, no rigidity. Extremities: No deformity, no edema or tenderness, no joint swelling or clubbing. Neurological: Normal cognition and motor skills. Walker for ambulation Pulses: Carotid and radial pulses normal +2. Diagnostic tests reviewed for today's visit: Lab Value Units Date High Low HB No results within date range. HCT No results within date range. WBC No results within date range. PLT No results within date range. NA No results within date range. K No results within date range. GLUC No results within date range. BUN No results within date range. CREAT No results within date range. PTSEC No results within date range. INR No results within date range. APTT No results within date range. ALT No results within date range. AST No results within date range. TBILI No results within date range. TSH No results within date range. No results found for: HBA1C Most recent EKG- 2017- Scanned into chart Most recent Transthoracic Echo - 01/29/22- [facility] Instructions Given to Patient: Instructions located in the after visit summary. Patient given verbal and written preop instructions and voices comprehension and compliance. 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 Patient/authorized fuels sales representative agreed to proceed SIGNATURE: Kristin Justice PA-C PATIENT NAME: Fartun Schneider DATE: 12/08/2024 TIME: 12:06 PM [1] Social History Tobacco Use Smoking status: Never Substance Use Topics Alcohol use: No Drug use: No [facility] 12-08-2024 History and physical note Images from the original note were not included. [facility] HISTORY AND PHYSICAL EXAMINATION SERVICE DATE: 12/08/2024 SERVICE TIME: 11:09 AM PRIMARY CARE PHYSICIAN: Emanuel Rutledge MD, MD REASON FOR VISIT: Fartun Schneider is a 69 year old female who is scheduled for EXCISE RECTAL TUMOR VIA TRANSANAL APPROACH at the request of Dr. Jenna Cordova for consultation. My final recommendation will be communicated back to the requesting physician by way of shared medical record or letter. Assessment 1. Pre-op evaluation (Z01.818) - Undergoing risk assessment for upcoming surgery on 12/10/2024 for removal of anal-rectal and colonic lesions found on colonoscopy last month. - No prior anesthesia complications reported. - Advised to follow bowel prep instructions and maintain clear liquid diet the day before surgery; no solid food starting tomorrow. 2. Primary hypertension (I10) - Stable on current regimen; continue lisinopril as prescribed. Asymptomatic, PCP following. Last 14 BP Last 14 Encounter BP Readings: Date: BP: 12/08/2024 122/51 11/23/2024 148/63 11/11/2013 158/81 04/20/2013 130/74 3. Mixed hyperlipidemia (E78.2) - Stable on current regimen; continue atorvastatin as prescribed. No cardiac stents. 4. Chronic GERD (K21.9) - Well-controlled on omeprazole. 5. Other specified diabetes mellitus without complication, with long-term current use of insulin (HCC) (E13.9) - Well-controlled; most recent A1c 5.7% two weeks ago, prior A1c 5.3% per patient. Will get updated labs from assisted living. Fasting glucose today was 103. - On Lantus 10 units nightly, Novolog PRN for elevated blood glucose, and Trulicity (held for surgery), last dose 11/29/24. Advised clear liquid diet 24 hours prior to surgery, patient already planning this to complete bowel prep. - Advised to hold Novolog on the morning of surgery. - Advised to take 75% of usual Lantus dose the evening before surgery; if unable, may take usual dose. 6. Iron deficiency anemia, unspecified iron deficiency anemia type (D50.9) - Stable; continue oral iron supplementation. Per patient, her recent labs were stable. Will get updated labs. Asymptomatic. 7. Bipolar affective disorder, remission status unspecified (HCC) (F31.9) - Stable on current regimen; continue Valium, Paxil, bupropion, and Celexa as prescribed. ANESTHESIA FINDINGS: Intubation History: No history of difficult intubation Significant Anesthesia Considerations: none Airway History: No history of difficult airway [place] Activity Status Index: METS: Walk indoors, such as around the house (1.75 METs) Do light work around the house, such as dusting or washing dishes (2.70 METs) Take care of self; that is eating, dressing, bathing, using the toilet (2.75 METs) Walk a block or two on level ground (2.75 METs) DASI Score: 9.95 (Uses walker for ambulation) Patient denies any chest pain or undue shortness of breath with the above physical activity. Clinical Frailty Scale: 3. Well, with treated comorbid disease STOP-Bang Score: Has or is being treated for high blood pressure Patient over 50 years old Denies snoring loudly Has not been observed to stop breathing or choking/gasping during sleep BMI less than or equal to 35 kg/m^2 Does not have a large neck Non-male patient STOP-Bang Score: 2 I - PHYSICAL EVALUATION AIRWAY Patient intubated: No. Tracheostomy tube not present Mallampati: I. TM distance: >3 FB. Neck ROM: full ROM without neurological symptoms. Mouth openin FB. Short neck: no. Thick neck: no Ruiz present: no Lip Bite Test: II Microretrognathia/Micronagthia/Recesse d Chin: No DENTAL Dentures, upper: complete. Dentures, lower: complete. II - ANESTHESIA PLAN Informed Consent Prepared for surgery: This patient is optimally prepared for surgery. CONSULTS: PCP for recent labs. Letter faxed to patient's assisted living facility where she recently had updated labs. The Following Tests/Procedures Have Been Initiated: Orders Placed This Encounter DISCONTD: insulin glargine (LANTUS) 100 unit/mL injection Sig: Inject 100 Units subcutaneously daily at bedtime. insulin aspart U-100 (NOVOLOG) 100 unit/mL (3 mL) pen Sig: Inject 9 Units subcutaneously as needed (elevated glucose). insulin glargine (LANTUS) 100 unit/mL injection Sig: Inject 10 Units subcutaneously daily at bedtime. Order Comments: Generic or brand: dispense product preferred by patient/insurance unless LEANDRO flag is selected. , EKG not indicated per [facility] protocol Labs reviewed from 2023 and 2022 in [facility]. Planned Anesthetic: Per anesthesia choice Subjective CHIEF COMPLAINT: Anorectal polyp [K62.0, K62.1] HPI: Patient is a 69 year old female presenting to pre-anesthesia consultation. Fartun Schneider is a 69-year-old female with a history of diabetes mellitus, anxiety, depression, GERD, and anemia, presenting for preoperative evaluation prior to surgery for anal rectal and colonic tumors. Fartun reports the discovery of a tumor in the anal rectal area and another in the colon during a colonoscopy performed last month in [place]. The colonoscopy was conducted due to severe bloating and pain in the lower abdomen, which she describes as unbearable. She denies hematochezia but reports persistent nausea and a recent episode of severe diarrhea. She is currently preparing for surgery to remove these tumors and has been instructed to follow a bowel preparation regimen. Family history of colon cancer is unknown as she was adopted. She has been recommended for the above surgery. REVIEW OF SYSTEMS: PAIN ASSESSMENT: GENERAL: Negative for weight loss or fever. Positive for chronic fatigue. HEENT: Negative for frequent or significant headaches, no changes in vision or hearing, negative for nose bleeds. Positive for post nasal drip. NECK: Positive for chronic neck pain. Negative for lumps, goiter, or significant neck swelling. RESPIRATORY: Positive for mild cough with PND, negative for dyspnea or shortness of breath. CARDIOVASCULAR: Negative for chest pain, leg swelling, CHF, or palpitations. GI: Positive for chronic nausea, intermittent diarrhea, and abdominal pain. Denies vomiting, blood in stool, or black stool. GENITOURINARY: No history of dysuria, frequency, or incontinence. MUSCULOSKELETAL: Positive for chronic back pain and right hip pain, negative for new joint pain or swelling, and no muscle pain. SKIN: Negative for lesions, rash, and itching. PSYCH: Positive for anxiety and depression. HEMATOLOGY/LYMPHOLOGY: No bleeding concerns. NEURO: No history of headaches, syncope, paralysis, seizures, or tremors. ENDOCRINE: No history of polydipsia, increased thirst, or other endocrine symptoms. The patient has the following: ACTIVE PROBLEM LIST Diabetes (Hcc) Stress Anxiety and Depression Arthritis of Both Knees Back Pain Bipolar Disorder (Hcc) Chronic Gerd Htn (Hypertension) Hyperlipidemia Hypothyroidism Iron Deficiency Anemia Covid Immunization Dates This patient has no relevant Health Maintenance data. PAST MEDICAL HISTORY Diagnosis Date Diabetes (HCC) PAST SURGICAL HISTORY Procedure Laterality Date COLONOSCOPY 10/2024 PAST SURGICAL HISTORY OF right knee scrapping PAST SURGICAL HISTORY OF left thumb arthritis surgery PAST SURGICAL HISTORY OF Fatty tumor removed left shoulder PAST SURGICAL HISTORY OF Right right hip fracture with spacer due to hx of infection TOTAL KNEE REPLACEMENT Bilateral FAMILY HISTORY Adopted: Yes Problem Relation Age of Onset other (unknown [Other]) Other SOCIAL HISTORY[1] Prior to Admission medications as of 12/08/24 1125 Medication Sig Last Dose Taking insulin aspart U-100 (NOVOLOG) 100 unit/mL (3 mL) pen Inject 9 Units subcutaneously as needed (elevated glucose). Yes insulin glargine (LANTUS) 100 unit/mL injection Inject 10 Units subcutaneously daily at bedtime. Yes diazePAM (VALIUM) 2 mg tablet Take 2 mg by mouth every 12 hours. Yes dicyclomine (BENTYL) 10 mg capsule Take 10 mg by mouth before meals and at bedtime. Yes ferrous sulfate 325 mg (65 mg iron) tablet Take 325 mg by mouth once daily. Yes gabapentin (NEURONTIN) 300 mg capsule Take 300 mg by mouth once daily. Yes levothyroxine (SYNTHROID) 112 mcg tablet Take 112 mcg by mouth once daily. Yes nystatin (MYCOSTATIN) powder Apply 1 application to affected area two times a day. Yes omeprazole (PRILOSEC) 20 mg capsule Take 20 mg by mouth once daily. Yes ondansetron orally disintegrating (ZOFRAN ODT) 4 mg disintegrating tablet Take 4 mg by mouth every 8 hours as needed. Yes oxyCODONE-acetaminophen (PERCOCET) 5-325 mg tablet Take 1 tablet by mouth every 6 hours as needed. Yes potassium chloride 20 mEq TbER Yes TRULICITY 0.75 mg/0.5 mL pen injector Inject 0.75 mg subcutaneously one time a week. Yes atorvastatin (LIPITOR) 40 mg tablet Take 40 mg by mouth once daily. Yes buPROPion (WELLBUTRIN) 75 mg tablet Take 75 mg by mouth two times a day. Yes PARoxetine (PAXIL) 40 mg tablet Take 40 mg by mouth once daily. Yes TRAZODONE 100 mg tablet daily at bedtime. Yes TRAMADOL 50 mg tablet every 4 hours as needed. Yes LISINOPRIL 10 mg tablet once daily. Yes CITALOPRAM HYDROBROMIDE (CELEXA ORAL) Take by mouth once daily. Yes No medication comments found. ALLERGIES Allergen Reactions Celebrex [Celecoxib] Unknown Gold Lopez [[place]* Unknown Neosporin [Benzalko* Unknown Penicillin G Unknown Objective PHYSICAL EXAM: VITALS: BP 122/51 Pulse 60 Temp (Src) 96.8 (Temporal) Resp 18 Ht 5' 3 (1.60m) Wt 156 lb 8.4 oz (71.0kg) SpO2 99% BMI 27.73 kg/(m^2). General: Alert and oriented Skin: Normal color, no rash, no lesions. HEENT: EOM, pupils equal, round and reactive. Cardiovascular: Normal S1 & S2, no rubs, murmurs or gallops. No JVD. Pulse regular. Lungs: Normal breath sounds, no wheezes or crackles. Abdomen: Soft, mild tenderness in lower abdomen with palpation, no rigidity. Extremities: No deformity, no edema or tenderness, no joint swelling or clubbing. Neurological: Normal cognition and motor skills. Walker for ambulation Pulses: Carotid and radial pulses normal +2. Diagnostic tests reviewed for today's visit: Lab Value Units Date High Low HB No results within date range. HCT No results within date range. WBC No results within date range. PLT No results within date range. NA No results within date range. K No results within date range. GLUC No results within date range. BUN No results within date range. CREAT No results within date range. PTSEC No results within date range. INR No results within date range. APTT No results within date range. ALT No results within date range. AST No results within date range. TBILI No results within date range. TSH No results within date range. No results found for: HBA1C Most recent EKG- 2017- Scanned into chart Most recent Transthoracic Echo - 01/29/22- [facility] Instructions Given to Patient: Instructions located in the after visit summary. Patient given verbal and written preop instructions and voices comprehension and compliance. 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 Patient/authorized fuels sales representative agreed to proceed SIGNATURE: Kristin Justice PA-C PATIENT NAME: Fartun Schneider DATE: 12/08/2024 TIME: 12:06 PM [1] Social History Tobacco Use Smoking status: Never Substance Use Topics Alcohol use: No Drug use: No documented in this encounter [facility] 12-07-2024 Hospital Discharge instructions Patient Education 12/07/2024 11:02:18 BMI for Adults BMI for Adults Body [...] Centers for Disease Control and Prevention: cdc.gov [place] Heart Association: heart.org National Heart, Lung, and Blood [place]: nhlbi.nih.gov This information is not intended to replace advice given to you by your health care provider. Make sure you discuss any questions you have with your health care provider. Document Revised: 12/05/2022 Document Reviewed: 11/28/2022 [employer] Patient Education 2023 [email or web address] 12/07/2024 11:02:07 Hypothyroidism Hypothyroidism Hypothyroidism is when the thyroid gland does not make enough of certain hormones. This is called an underactive thyroid. The thyroid gland is a small gland located in the lower front part of the neck, just in front of the windpipe (trachea). This gland makes hormones that help control how the body uses food for energy (metabolism) as well as how the heart and brain function. These hormones also play a role in keeping your bones strong. When the thyroid is underactive, it produces too little of the hormones thyroxine (T4) and triiodothyronine (T3). What are the causes? This condition may be caused by: Kev's disease. This is a disease in which the body's disease-fighting system (immune system) attacks the thyroid gland. This is the most common cause. Viral infections. . Certain medicines. defects. Problems with a gland in the center of the brain (pituitary gland). Lack of enough iodine in the diet. Other causes may include: Past radiation treatments to the head or neck for cancer. Past treatment with radioactive iodine. Past exposure to radiation in the environment. Past surgical removal of part or all of the thyroid. What increases the risk? You are more likely to develop this condition if: You are female. You have a family history of thyroid conditions. You use a medicine called lithium. You take medicines that affect the immune system (immunosuppressants). What are the signs or symptoms? Common symptoms of this condition include: Not being able to tolerate cold. Feeling as though you have no energy (lethargy). Lack of appetite. Constipation. Sadness or depression. Weight gain that is not explained by a change in diet or exercise habits. Menstrual irregularity. Dry skin, coarse hair, or brittle nails. Other symptoms may include: Muscle pain. Slowing of thought processes. Poor memory. How is this diagnosed? This condition may be diagnosed based on: Your symptoms, your medical history, and a physical exam. Blood tests. You may also have imaging tests, such as an ultrasound or MRI. How is this treated? This condition is treated with medicine that replaces the thyroid hormones that your body does not make. After you begin treatment, it may take several weeks for symptoms to go away. Follow these instructions at home: Take [id number] and prescription medicines only as told by your health care provider. If you start taking any new medicines, tell your health care provider. Keep all follow-up visits as told by your health care provider. This is important. ?As your condition improves, your dosage of thyroid hormone medicine may change. ?You will need to have blood tests regularly so that your health care provider can monitor your condition. Contact a health care provider if: Your symptoms do not get better with treatment. You are taking thyroid hormone replacement medicine and you: ?Sweat a lot. ?Have tremors. ?Feel anxious. ?Lose weight rapidly. ?Cannot tolerate heat. ?Have emotional swings. ?Have diarrhea. ?Feel weak. Get help right away if: You have chest pain. You have an irregular heartbeat. You have a rapid heartbeat. You have difficulty breathing. These symptoms may be an emergency. Get help right away. Call 911. Do not wait to see if the symptoms will go away. Do not drive yourself to the hospital. Summary Hypothyroidism is when the thyroid gland does not make enough of certain hormones (it is underactive). When the thyroid is underactive, it produces too little of the hormones thyroxine (T4) and triiodothyronine (T3). The most common cause is Kev's disease, a disease in which the body's disease-fighting system (immune system) attacks the thyroid gland. The condition can also be caused by viral infections, medicine, , or past radiation treatment to the head or neck. Symptoms may include weight gain, dry skin, constipation, feeling as though you do not have energy, and not being able to tolerate cold. This condition is treated with medicine to replace the thyroid hormones that your body does not make. This information is not intended to replace advice given to you by your health care provider. Make sure you discuss any questions you have with your health care provider. Document Revised: 03/19/2022 Document Reviewed: 03/19/2022 [employer] Patient Education 2023 [email or web address] 12/07/2024 11:02:05 Insomnia Insomnia Insomnia is a sleep disorder that makes it difficult to fall asleep or stay asleep. Insomnia can cause fatigue, low energy, difficulty concentrating, mood swings, and poor performance at work or school. There are three different ways to classify insomnia: Difficulty falling asleep. Difficulty staying asleep. Waking up too early in the morning. Any type of insomnia can be long-term (chronic) or short-term (acute). Both are common. Short-term insomnia usually lasts for 3 months or less. Chronic insomnia occurs at least three times a week for longer than 3 months. What are the causes? Insomnia may be caused by another condition, situation, or substance, such as: Having certain mental health conditions, such as anxiety and depression. Using caffeine, alcohol, tobacco, or drugs. Having gastrointestinal conditions, such as gastroesophageal reflux disease (GERD). Having certain medical conditions. These include: ?Asthma. ?Alzheimer's disease. ?Stroke. ?Chronic pain. ?An overactive thyroid gland (hyperthyroidism). Other sleep disorders, such as restless legs syndrome and sleep apnea. Menopause. Sometimes, the cause of insomnia may not be known. What increases the risk? Risk factors for insomnia include: Gender. Females are affected more often than males. Age. Insomnia is more common as people get older. Stress and certain medical and mental health conditions. Lack of exercise. Having an irregular work schedule. This may include working night shifts and traveling between different time zones. What are the signs or symptoms? If you have insomnia, the main symptom is having trouble falling asleep or having trouble staying asleep. This may lead to other symptoms, such as: Feeling tired or having low energy. Feeling nervous about going to sleep. Not feeling rested in the morning. Having trouble concentrating. Feeling irritable, anxious, or depressed. How is this diagnosed? This condition may be diagnosed based on: Your symptoms and medical history. Your health care provider may ask about: ?Your sleep habits. ?Any medical conditions you have. ?Your mental health. A physical exam. How is this treated? Treatment for insomnia depends on the cause. Treatment may focus on treating an underlying condition that is causing the insomnia. Treatment may also include: Medicines to help you sleep. Counseling or therapy. Lifestyle adjustments to help you sleep better. Follow these instructions at home: Eating and drinking Limit or avoid alcohol, caffeinated beverages, and products that contain nicotine and tobacco, especially close to bedtime. These can disrupt your sleep. Do not eat a large meal or eat spicy foods right before bedtime. This can lead to digestive discomfort that can make it hard for you to sleep. Sleep habits Keep a sleep diary to help you and your health care provider figure out what could be causing your insomnia. Write down: ?When you sleep. ?When you wake up during the night. ?How well you sleep and how rested you feel the next day. ?Any side effects of medicines you are taking. ?What you eat and drink. Make your bedroom a dark, comfortable place where it is easy to fall asleep. ?Put up shades or blackout curtains to block light from outside. ?Use a white noise machine to block noise. ?Keep the temperature cool. Limit screen use before bedtime. This includes: ?Not watching TV. ?Not using your smartphone, tablet, or computer. Stick to a routine that includes going to bed and waking up at the same times every day and night. This can help you fall asleep faster. Consider making a quiet activity, such as reading, part of your nighttime routine. Try to avoid taking naps during the day so that you sleep better at night. Get out of bed if you are still awake after 15 minutes of trying to sleep. Keep the lights down, but try reading or doing a quiet activity. When you feel sleepy, go back to bed. General instructions Take axng-qec-hhbhkme and prescription medicines only as told by your health care provider. Exercise regularly as told by your health care provider. However, avoid exercising in the hours right before bedtime. Use relaxation techniques to manage stress. Ask your health care provider to suggest some techniques that may work well for you. These may include: ?Breathing exercises. ?Routines to release muscle tension. ?Visualizing peaceful scenes. Make sure that you drive carefully. Do not drive if you feel very sleepy. Keep all follow-up visits. This is important. Contact a health care provider if: You are tired throughout the day. You have trouble in your daily routine due to sleepiness. You continue to have sleep problems, or your sleep problems get worse. Get help right away if: You have thoughts about hurting yourself or someone else. Get help right away if you feel like you may hurt yourself or others, or have thoughts about taking your own life. Go to your nearest emergency room or: Call 911. Call the National Suicide Prevention Lifeline at or 009. This is open 24 hours a day. Text the Crisis Text Line at 717764. Summary Insomnia is a sleep disorder that makes it difficult to fall asleep or stay asleep. Insomnia can be long-term (chronic) or short-term (acute). Treatment for insomnia depends on the cause. Treatment may focus on treating an underlying condition that is causing the insomnia. Keep a sleep diary to help you and your health care provider figure out what could be causing your insomnia. This information is not intended to replace advice given to you by your health care provider. Make sure you discuss any questions you have with your health care provider. Document Revised: 02/25/2022 Document Reviewed: 02/25/2022 [employer] Patient Education 2023 [email or web address] 12/07/2024 11:02:01 DASH Eating Plan DASH Eating Plan DASH [...] Dairy Whole or 2% milk, cream, and rhvd-qqk-[id number]. Whole or full-fat cream cheese. Whole-fat or [...] more information National Heart, Lung, and Blood [place] (NHLBI): nhlbi.nih.gov [place] Heart Association (AHA): heart.org Academy of Nutrition and Dietetics: eatright.org National Kidney Foundation (NKF): kidney.org This information is not intended to replace advice given to you by your health care provider. Make sure you discuss any questions you have with your health care provider. Document Revised: 04/03/2023 Document Reviewed: 04/03/2023 [employer] Patient Education 2023 [email or web address] 12/07/2024 11:01:56 Diabetic Neuropathy Diabetic Neuropathy Diabetic neuropathy refers to nerve damage that is caused by diabetes. Over time, people with diabetes can develop nerve damage throughout the body. There are several types of diabetic neuropathy: Peripheral neuropathy. This is the most common type of diabetic neuropathy. It damages the nerves that carry signals between the spinal cord and other parts of the body (peripheral nerves). This usually affects nerves in the feet, legs, hands, and arms. Autonomic neuropathy. This type causes damage to nerves that control involuntary functions (autonomic nerves). Involuntary functions are functions of the body that you do not control. They include heartbeat, body temperature, blood pressure, urination, digestion, sweating, sexual function, or response to changes in blood glucose. Focal neuropathy. This type of nerve damage affects one area of the body, such as an arm, a leg, or the face. The injury may involve one nerve or a small group of nerves. Focal neuropathy can be painful and unpredictable. It occurs most often in older adults with diabetes. This often develops suddenly, but usually improves over time and does not cause long-term problems. Proximal neuropathy. This type of nerve damage affects the nerves of the thighs, hips, buttocks, or legs. It causes severe pain, weakness, and muscle (atrophy), usually in the thigh muscles. It is more common among older men and people who have type 2 diabetes. The length of recovery time may vary. What are the causes? Peripheral, autonomic, and focal neuropathies are caused by diabetes that is not well controlled with treatment. The cause of proximal neuropathy is not known, but it may be caused by inflammation related to uncontrolled blood glucose levels. What are the signs or symptoms? Peripheral neuropathy Peripheral neuropathy develops slowly over time. When the nerves of the feet and legs no longer work, you may experience: Burning, stabbing, or aching pain in the legs or feet. Pain or cramping in the legs or feet. Loss of feeling (numbness) and inability to feel pressure or pain in the feet. This can lead to: ?Thick calluses or sores on areas of constant pressure. ?Ulcers. ?Reduced ability to feel temperature changes. Foot deformities. Muscle weakness. Loss of balance or coordination. Autonomic neuropathy The symptoms of autonomic neuropathy vary depending on which nerves are affected. Symptoms may include: Problems with digestion, such as: ?Nausea or vomiting. ?Poor appetite. ?Bloating. ?Diarrhea or constipation. ?Trouble swallowing. ?Losing weight without trying to. Problems with the heart, blood, and lungs, such as: ?Dizziness, especially when standing up. ?Fainting. ?Shortness of breath. ?Irregular heartbeat. Bladder problems, such as: ?Trouble starting or stopping urination. ?Leaking urine. ?Trouble emptying the bladder. ?Urinary tract infections (UTIs). Problems with other body functions, such as: ?Sweat. You may sweat too much or too little. ?Temperature. You might get hot easily. Or, you might feel cold more than usual. ?Sexual function. Men may not be able to get or maintain an erection. Women may have vaginal dryness and difficulty with arousal. Focal neuropathy Symptoms affect only one area of the body. Common symptoms include: Numbness. Tingling. Burning pain. Prickling feeling. Very sensitive skin. Weakness. Inability to move (paralysis). Muscle twitching. Muscles getting smaller (wasting). Poor coordination. Double or blurred vision. Proximal neuropathy Sudden, severe pain in the hip, thigh, or buttocks. Pain may spread from the back into the legs (sciatica). Pain and numbness in the arms and legs. Tingling. Loss of bladder control or bowel control. Weakness and wasting of thigh muscles. Difficulty getting up from a seated position. Abdominal swelling. Unexplained weight loss. How is this diagnosed? Diagnosis varies depending on the type of neuropathy your health care provider suspects. Peripheral neuropathy Your health care provider will do a neurologic exam. This exam checks your reflexes, how you move, and what you can feel. You may have other tests, such as: Blood tests. Tests of the fluid that surrounds the spinal cord (lumbar puncture). CT scan. MRI. Checking the nerves that control muscles (electromyogram, or EMG). Checking how quickly signals pass through your nerves (nerve conduction study). Checking a small piece of a nerve using a microscope (biopsy). Autonomic neuropathy You may have tests, such as: Tests to measure your blood pressure and heart rate. You may be secured to an exam table that moves you from a lying position to an upright position (table tilt test). Breathing tests to check your lungs. Tests to check how food moves through the digestive system (gastric emptying tests). Blood, sweat, or urine tests. Ultrasound of your bladder. Spinal fluid tests. Focal neuropathy This condition may be diagnosed with: A neurologic exam. CT scan. MRI. EMG. Nerve conduction study. Proximal neuropathy There is no test to diagnose this type of neuropathy. You may have tests to rule out other possible causes of this type of neuropathy. Tests may include: X-rays of your spine and lumbar region. Lumbar puncture. MRI. How is this treated? The goal of treatment is to keep nerve damage from getting worse. Treatment may include: Following your diabetes management plan. This will help keep your blood glucose level and your A1C level within your target range. This is the most important treatment. Using prescription pain medicine. Follow these instructions at home: Diabetes management Follow your diabetes management plan as told by your health care provider. Check your blood glucose levels. Keep your blood glucose in your target range. Have your A1C level checked at least two times a year, or as often as told. Take over the counter and prescription medicines only as told by your health care provider. This includes insulin and diabetes medicine. Lifestyle Do not use any products that contain nicotine or tobacco, such as cigarettes, e-cigarettes, and chewing tobacco. If you need help quitting, ask your health care provider. Be physically active every day. Include strength training and balance exercises. Follow a healthy meal plan. Work with your health care provider to manage your blood pressure. General instructions Ask your health care provider if the medicine prescribed to you requires you to avoid driving or using machinery. Check your skin and feet every day for cuts, bruises, redness, blisters, or sores. Keep all follow-up visits. This is important. Contact a health care provider if: You have burning, stabbing, or aching pain in your legs or feet. You are unable to feel pressure or pain in your feet. You develop problems with digestion, such as: ?Nausea. ?Vomiting. ?Bloating. ?Constipation. ?Diarrhea. ?Abdominal pain. You have difficulty with urination, such as: ?Inability to control when you urinate (incontinence). ?Inability to completely empty the bladder (retention). You feel as if your heart is racing (palpitations). You feel dizzy, weak, or faint when you stand up. Get help right away if: You cannot urinate. You have sudden weakness or loss of coordination. You have trouble speaking. You have pain or pressure in your chest. You have an irregular heartbeat. You have sudden inability to move a part of your body. These symptoms may represent a serious problem that is an emergency. Do not wait to see if the symptoms will go away. Get medical help right away. Call your local emergency services (911 in the [place] Do not drive yourself to the hospital. Summary Diabetic neuropathy is nerve damage that is caused by diabetes. It can cause numbness and pain in the arms, legs, digestive tract, heart, and other body systems. This condition is treated by keeping your blood glucose level and your A1C level within your target range. This can help prevent neuropathy from getting worse. Check your skin and feet every day for cuts, bruises, redness, blisters, or sores. Do not use any products that contain nicotine or tobacco, such as cigarettes, e-cigarettes, and chewing tobacco. This information is not intended to replace advice given to you by your health care provider. Make sure you discuss any questions you have with your health care provider. Document Revised: 07/27/2020 Document Reviewed: 07/27/2020 [employer] Patient Education 2023 [email or web address] 12/07/2024 11:01:52 Diabetes Mellitus and Nutrition, Adult Diabetes Mellitus and Nutrition, Adult When you have diabetes, or diabetes mellitus, it is very important to have healthy eating habits because your blood sugar (glucose) levels are greatly affected by what you eat and drink. Eating healthy foods in the right amounts, at about the same times every day, can help you: Manage your blood glucose. Lower your risk of heart disease. Improve your blood pressure. Reach or maintain a healthy weight. What can affect my meal plan? Every person with diabetes is different, and each person has different needs for a meal plan. Your health care provider may recommend that you work with a dietitian to make a meal plan that is best for [...] level more than any other type of food. Eating carbs raises the amount of glucose in your blood. It is important to know how many carbs you can safely have in each meal. This is different for every person. Your dietitian can help you calculate how many carbs you should have at each meal and for each snack. How does alcohol affect me? Alcohol can cause a decrease in blood glucose (hypoglycemia), especially if you use insulin or take certain diabetes medicines by mouth. Hypoglycemia can be a life-threatening condition. Symptoms of hypoglycemia, such as sleepiness, dizziness, and confusion, are similar to symptoms of having too much alcohol. Do not drink alcohol if: ?Your health care provider tells you not to drink. ?You are , may be , or are planning to become . If you drink alcohol: ?Limit how much you have to: ?0 1 drink a day for women. ?0 2 drinks a day for men. ?Know how much alcohol is in your drink. In the [place] one drink equals one 12 oz bottle of beer (355 mL), one 5 oz glass of wine (148 mL), or one 1 oz glass of hard liquor (44 mL). ?Keep yourself hydrated with water, diet soda, or unsweetened iced tea. Keep in mind that regular soda, juice, and other mixers may contain a lot of sugar and must be counted as carbs. What are tips for following this plan? Reading food labels Start by checking the serving size on the Nutrition Facts label of packaged foods and drinks. The number of calories and the amount of carbs, fats, and other nutrients listed on the label are based on one serving of the item. Many items contain more than one serving per package. Check the total grams (g) of carbs in one serving. Check the number of grams of saturated fats and trans fats in one serving. Choose foods that have a low amount or none of these fats. Check the number of milligrams (mg) of salt (sodium) in one serving. Most people should limit total sodium intake to less than 2,300 mg per day. Always check the nutrition information of foods labeled as low-fat or nonfat. These foods may be higher in added sugar or refined carbs and should be avoided. Talk to your dietitian to identify your daily goals for nutrients listed on the label. Shopping Avoid buying canned, pre-made, or processed foods. These foods tend to be high in fat, sodium, and added sugar. Shop around the outside edge of the grocery store. This is where you will most often find fresh fruits and vegetables, bulk grains, fresh meats, and fresh dairy products. Cooking Use low-heat cooking methods, such as baking, instead of high-heat cooking methods, such as deep frying. Cook using healthy oils, such as olive, canola, or sunflower oil. Avoid cooking with butter, cream, or high-fat meats. Meal planning Eat meals and snacks regularly, preferably at the same times every day. Avoid going long periods of time without eating. Eat foods that are high in fiber, such as fresh fruits, vegetables, beans, and whole grains. Eat 4 6 oz (112 168 g) of lean protein each day, such as lean meat, chicken, fish, eggs, or tofu. One ounce (oz) (28 g) of lean protein is equal to: ?1 oz (28 g) of meat, chicken, or fish. ?1 egg. ? cup (62 g) of tofu. Eat some foods each day that contain healthy fats, such as avocado, nuts, seeds, and fish. What foods should I eat? Fruits Berries. Apples. Oranges. Peaches. Apricots. Plums. Grapes. Mangoes. Papayas. Pomegranates. Kiwi. Cherries. Vegetables Leafy greens, including lettuce, spinach, kale, chard, warren greens, mustard greens, and cabbage. Beets. Cauliflower. Broccoli. Carrots. Green beans. Tomatoes. Peppers. Onions. Cucumbers. [place] sprouts. Grains Whole grains, such as whole-wheat or whole-grain bread, crackers, tortillas, cereal, and pasta. Unsweetened oatmeal. Quinoa. Brown or wild rice. Meats and other proteins Seafood. Poultry without skin. Lean cuts of poultry and beef. Tofu. Nuts. Seeds. Dairy Low-fat or fat-free dairy products such as milk, yogurt, and cheese. The items listed above may not be a complete list of foods and beverages you can eat and drink. Contact a dietitian for more information. What foods should I avoid? Fruits Fruits canned with syrup. Vegetables Canned vegetables. Frozen vegetables with butter or cream sauce. Grains Refined white flour and flour products such as bread, pasta, snack foods, and cereals. Avoid all processed foods. Meats and other proteins Fatty cuts of meat. Poultry with skin. Breaded or fried meats. Processed meat. Avoid saturated fats. Dairy Full-fat yogurt, cheese, or milk. Beverages Sweetened drinks, such as soda or iced tea. The items listed above may not be a complete list of foods and beverages you should avoid. Contact a dietitian for more information. Questions to ask a health care provider Do I need to meet with a certified diabetes care and continuing education specialist? Do I need to meet with a dietitian? What number can I call if I have questions? When are the best times to check my blood glucose? Where to find more information: [place] Diabetes Association: diabetes.org Academy of Nutrition and Dietetics: eatright.org National [place] of Diabetes and Digestive and Kidney Diseases: niddk.nih.gov Association of Diabetes Care & Education Specialists: diabeteseducator.org Summary It is important to have healthy eating habits because your blood sugar (glucose) levels are greatly affected by what you eat and drink. It is important to use alcohol carefully. A healthy meal plan will help you manage your blood glucose and lower your risk of heart disease. Your health care provider may recommend that you work with a dietitian to make a meal plan that is best for you. This information is not intended to replace advice given to you by your health care provider. Make sure you discuss any questions you have with your health care provider. Document Revised: 10/18/2020 Document Reviewed: 10/18/2020 [employer] Patient Education 2023 [email or web address] 12/07/2024 11:01:26 Managing Bipolar Disorder Managing Bipolar Disorder If you have been diagnosed with bipolar disorder, you may be relieved to now know that this is why you have felt or behaved a certain way. You may also feel overwhelmed about the treatment ahead, how to get needed support, and how to deal with your condition each day. With care and support, you can learn to manage your symptoms and live with your condition. How to manage lifestyle changes Managing stress Stress is your body's reaction to life changes and events, both good and bad. Stress can affect your condition, so it is important to learn how to manage stress. Some techniques to help manage stress include: Meditation, muscle relaxation, and breathing exercises. Exercise. Even a short daily walk can help to lower stress levels. Getting enough good-quality sleep. Too little sleep can trigger the emotional highs of john. Making a schedule to manage your time. A daily schedule can help keep you from feeling overwhelmed by tasks and deadlines. Spending time on hobbies you enjoy. Medicines Your health care provider may suggest certain medicines if he or she thinks that these will help improve your condition. Avoid using caffeine, alcohol, and other substances that may prevent your medicines from working properly. Be sure to: Talk with your pharmacist or health care provider about all the medicines that you take, their possible side effects, and which medicines are safe to take together. Make it your goal to take part in all treatment decisions with your health care provider (shared decision-making). Ask about possible side effects of medicines, and share how you feel about having those side effects. It is best if shared decision-making is part of your total treatment plan. If you are taking medicines as part of your treatment, do not stop taking them before asking if it is safe to stop. You may need to have the medicine slowly decreased (tapered) over time to lower the risk of harmful side effects. Relationships Spend time with people whom you trust and with whom you feel a sense of understanding and calm. Try to find friends or family members who make you feel safe and can help you control feelings of john. Consider going to couples counseling, family education classes, or family therapy to: Teach your loved ones about your condition and suggest ways they can support you. Help resolve conflicts. Help develop communication skills in your relationships. How to recognize changes in your condition Everyone responds differently to treatment for bipolar disorder. Signs that your condition is improving include: Leveling of your mood. You may have less anger and excitement about daily activities, and your low moods may not be as bad. Your symptoms being less intense. Feeling calm more often. Thinking clearly. Not experiencing consequences for extreme behavior. Feeling like your life is settling down. Your behavior seeming more normal to you and to other people. Signs that your condition may be getting worse include: Sleep problems. Moods cycling between deep lows and unusually high energy. Extreme emotions, or more anger toward loved ones. Staying away from others, or isolating yourself. A feeling of power or superiority. Completing a lot of tasks in a very short amount of time. Unusual thoughts and behaviors. Thoughts of suicide. Follow these instructions at home: Medicines Take veau-kdl-wvxmfyi and prescription medicines only as told by your health care provider or pharmacist. Ask your pharmacist what wtlh-svb-rbghuez cold medicines you should avoid. Some medicines can make symptoms worse. General instructions Ask for support from trusted family members or friends to make sure you stay on track with your treatment. Keep a journal to write down your daily moods, medicines, sleep habits, and life events. This may bring you more success with your treatment. Make and follow a routine for daily meal times. Eat healthy foods, such as whole grains, vegetables, and fresh fruit. Try to go to sleep and wake up around the same time every day. Avoid using products that contain nicotine or tobacco. If you want help quitting, ask your health care provider. Keep all follow-up visits. This is important. Where to find support Helplines and other support Substance Abuse and Mental Health Services Administration (SAMHSA) National Helpline: 3-719-642-HELP (3407) National [place] on Mental Illness (RAUL) HelpLine: 3-322-377-RAUL (4546) or email Depression and Bipolar Support [place]: dbsalliance.org Talking to others Try making a list of the people you may want to tell about your condition, such as the people you trust most. Plan what you are willing and not willing to talk about. Think about your needs ahead of time and how others can support you. Let your loved ones know when they can share advice and when you would just like them to listen. Give your loved ones information about bipolar disorder and encourage them to learn about the condition. Finances Not all insurance plans provide the same coverage for mental health care, so it is important to check with your insurance carrier. If paying for co-pays or counseling services is a problem, search for a local or [facility] mental health care center. Public mental health care services may be offered there at a low cost or no cost when you are not able to see a private health care provider. If you are taking medicine for depression, you may be able to get the generic form, which may cost less than brand-name medicine. Some makers of prescription medicines also offer help to people who cannot afford the medicines they need. Questions to ask your health care provider: If you are taking medicines How long do I need to take medicine? Are there any long-term side effects of my medicine? Are there any alternatives to taking medicine? Other questions How would I benefit from therapy? How often should I follow up with a health care provider? Contact a health care provider if: Your symptoms get worse or they do not get better with treatment. Get help right away if: You have thoughts about harming yourself or others. If you ever feel like you may hurt yourself or others, or have thoughts about taking your own life, get help right away. Go to your nearest emergency department or: Call your local emergency services (959 in the [place] Call a suicide crisis helpline, such as the National Suicide Prevention Lifeline at or 789 in the [place] This is open 24 hours a day in the [place] Text the Crisis Text Line at 893041 (in the [place] Summary Stress can affect your condition, so it is important to learn how to manage stress. Aim to take part in all treatment decisions (shared decision-making). Teach your loved ones about your condition and suggest ways they can support you. Contact a health care provider if your symptoms get worse or they do not get better with treatment. This information is not intended to replace advice given to you by your health care provider. Make sure you discuss any questions you have with your health care provider. Document Revised: 10/11/2021 Document Reviewed: 09/06/2021 [employer] Patient Education 2023 [email or web address] [facility] 12-07-2024 Note Patient Education Endocrinology Hypothyroidism Hypothyroidism is when the thyroid gland does not make enough of certain hormones. This is called an underactive thyroid. The thyroid gland is a small gland located in the lower front part of the neck, just in front of the windpipe (trachea). This gland makes hormones that help control how the body uses food for energy (metabolism) as well as how the heart and brain function. These hormones also play a role in keeping your bones strong. When the thyroid is underactive, it produces too little of the hormones thyroxine (T4) and triiodothyronine (T3). What are the causes? This condition may be caused by: ??? Kev's disease. This is a disease in which the body's disease-fighting system (immune system) attacks the thyroid gland. This is the most common cause. ??? Viral infections. ??? . ??? Certain medicines. ??? defects. ??? Problems with a gland in the center of the brain (pituitary gland). ??? Lack of enough iodine in the diet. Other causes may include: ??? Past radiation treatments to the head or neck for cancer. ??? Past treatment with radioactive iodine. ??? Past exposure to radiation in the environment. ??? Past surgical removal of part or all of the thyroid. What increases the risk? You are more likely to develop this condition if: ??? You are female. ??? You have a family history of thyroid conditions. ??? You use a medicine called lithium. ??? You take medicines that affect the immune system (immunosuppressants). What are the signs or symptoms? Common symptoms of this condition include: ??? Not being able to tolerate cold. ??? Feeling as though you have no energy (lethargy). ??? Lack of appetite. ??? Constipation. ??? Sadness or depression. ??? Weight gain that is not explained by a change in diet or exercise habits. ??? Menstrual irregularity. ??? Dry skin, coarse hair, or brittle nails. Other symptoms may include: ??? Muscle pain. ??? Slowing of thought processes. ??? Poor memory. How is this diagnosed? This condition may be diagnosed based on: ??? Your symptoms, your medical history, and a physical exam. ??? Blood tests. You may also have imaging tests, such as an ultrasound or MRI. How is this treated? This condition is treated with medicine that replaces the thyroid hormones that your body does not make. After you begin treatment, it may take several weeks for symptoms to go away. Follow these instructions at home: ??? Take ydlv-lmv-nctaorp and prescription medicines only as told by your health care provider. ??? If you start taking any new medicines, tell your health care provider. ??? Keep all follow-up visits as told by your health care provider. This is important. ? As your condition improves, your dosage of thyroid hormone medicine may change. ? You will need to have blood tests regularly so that your health care provider can monitor your condition. Contact a health care provider if: ??? Your symptoms do not get better with treatment. ??? You are taking thyroid hormone replacement medicine and you: ? Sweat a lot. ? Have tremors. ? Feel anxious. ? Lose weight rapidly. ? Cannot tolerate heat. ? Have emotional swings. ? Have diarrhea. ? Feel weak. Get help right away if: ??? You have chest pain. ??? You have an irregular heartbeat. ??? You have a rapid heartbeat. ??? You have difficulty breathing. These symptoms may be an emergency. Get help right away. Call 911. ??? Do not wait to see if the symptoms will go away. ??? Do not drive yourself to the hospital. Summary ??? Hypothyroidism is when the thyroid gland does not make enough of certain hormones (it is underactive). ??? When the thyroid is underactive, it produces too little of the hormones thyroxine (T4) and triiodothyronine (T3). ??? The most common cause is Kev's disease, a disease in which the body's disease-fighting system (immune system) attacks the thyroid gland. The condition can also be caused by viral infections, medicine, , or past radiation treatment to the head or neck. ??? Symptoms may include weight gain, dry skin, constipation, feeling as though you do not have energy, and not being able to tolerate cold. ??? This condition is treated with medicine to replace the thyroid hormones that your body does not make. This information is not intended to replace advice given to you by your health care provider. Make sure you discuss any questions you have with your health care provider. Document Revised: 03/19/2022 Document Reviewed: 03/19/2022 [employer] Patient Education ? 2023 [employer] Diabetes Mellitus and Nutrition, Adult When you have diabetes, or diabetes mellitus, it is very important to have healthy eating habits because your blood sugar (glucose) levels are greatly affected by what you eat and drink. Eating healthy foods in the right amounts, at abou (more content not included)... [facility] 12-07-2024 Instructions Kristin Justice PA-C - 12/07/2024 9:57 AM EDT Images from the original note were not included. [facility] PATIENT PREOPERATIVE INSTRUCTIONS Jenna Cordova MD has scheduled you for your procedure at this surgery center: [facility]: [phone] --[id number] [id number]. Please check in on the 1st floor at registration desk 6. Arrival Time for Surgery: - The Surgery Center or hospital where you are having surgery will call the afternoon before surgery (or Friday for Friday surgery) with a scheduled arrival time. - If you have not heard by 4 pm, please contact the surgery center above. Please be aware that emergency situations arise, which may delay or change your surgical time. If this happens, we will notify you as soon as possible and regret any inconvenience. Please read below carefully for your personalized instructions. Dietary Restrictions: - Follow bowel prep instructions given by surgeon. - Clear liquids ONLY (water, clear juices such as apple juice or gatorade, carbonated beverages (sprite/rica trevor), clear tea, black coffee, jello) for at least 24 hours prior to your procedure. No solid food the day before surgery. - You may have 12 ounces of clear liquids until 2 hours before scheduled arrival at facility. - You may only have sugar-free clear liquids on the day of surgery. Medications: Unless instructed differently below, stay on all of your medications until your surgery. Approved medications to take the morning of surgery with a sip of water: diazepam (Valium), Gabapentin (Neurontin), Levothyroxine (Synthroid), omeprazole (Prilosec), atorvastatin (Lipitor), Bupropion (Wellbutrin), Paroxetine (Paxil), lisinopril(Zestril), Citalopram (Celexa) Is Patient Diabetic:Yes Preoperative Instructions for Patient's with Diabetes Mellitus/ Prediabetes Insulin Medication Instructions: For the following medications: Afrezza, Novolog, Regular Insulin, Apidra , Humalog DO NOT TAKE THE MORNING OF SURGERY: Please take the following medications at your usual dose the day before surgery. For the following medications: NPH Insulin, Basaglar, Lantus/glargline, Levemir, Rougeo, Lispro, Tresiba/Degludec, Soliqua, and Xultophy IF YOU TAKE IN THE EVENING take 75% of your usual dose the evening before surgery. If not possible to take 75% of your usual dose then take your full dose. IF YOU TAKE IN THE MORNING if blood glucose was > 200 to take half dose of your insulin if blood glucose was < 200 do not take your morning dose If you start any new medications after today's visit, please contact the surgeon's office. If you are currently using a [id number] injectable or oral medication for diabetes or weight loss such as Dulaglutide (Trulicity), Exenatide (Byetta, Bydureon), Liraglutide (Victoza, Saxenda), Semaglutide (Ozempic, Wegovy, Rybelsus), or Tirzepatide (Mounjaro), the medicine should be stopped at least 7 days before surgery. These medicines can cause food to remain in your stomach for a very long time and increase the risks from surgery and anesthesia. Not stopping the medication for a long enough time may result in your surgery being rescheduled. Blood Thinning Medications: - Stop NSAIDS (Ibuprofen, Advil, Aleve, Motrin, Celebrex, Mobic, etc.) 7 days before surgery, as directed by your surgeon. - Stop Aspirin 7 days before surgery, as directed by your surgeon. - Stop herbals and dietary supplements 7 days before surgery. - You may take Tylenol (Acetaminophen) or any of your pain medications that do not contain aspirin or NSAIDS as needed. Important Reminders: - Candy, mints, and tobacco products are NOT permitted the morning of surgery. - Hearing aids, dentures and glasses may be worn the morning of surgery, but you may be asked to remove them prior to your procedure. - NO jewelry, body piercings, makeup, hairpins or contacts are to be worn the day of surgery. If you develop symptoms such as a fever, cold, or flu, or have other changes to your health within TWO DAYS of scheduled surgery or the morning of surgery, please contact the surgery center above. Personal Belongings: -Please have photo ID and insurance cards. -If you do not have a copy of advance directives on file with us, please bring a copy with you on the day of surgery. - Leave ALL valuables and money at home or with family members. For Outpatient Procedures: - YOU MUST HAVE A RESPONSIBLE STEAMBOAT PILOT TAKE YOU HOME. A CULTURIST OR BATTERY TESTER AND REPAIRER CANNOT BE MADE A RESPONSIBLE STEAMBOAT PILOT. - We recommend that a responsible person stays with you overnight to take care of you. - You cannot stay in a hotel alone after outpatient surgery. You will not be permitted to have your surgery, if you do not have someone to take care of you. If you already have an Advance Directive, please fax a copy to [phone] or email to for it to be added to your chart. If you do not have an Advance Directive, you can find the appropriate form and more information at [email or web address]. We recommend that you complete the Advance Directive form found on the website and bring it with you the day of your surgery. It can be witnessed and scanned into your chart that day. Kristin Justice PA-C documented in this encounter [facility] 12-06-2024 Telephone encounter Note Patient was scheduled for in person [facility] appt 12/06/2024 at 8:20am. Patient did not check in for visit. Checked our waiting room and called for patient, but the patient was not present in the waiting room. I called the patient at 8:28am to see if they were coming to this appt. Called cell phone number listed in patient's chart. [phone] I did provide our [facility] forest botany instructor phone number to assist in rescheduling this apt. ([phone]). This message routed to [facility] schedulers to contact patient to reschedule [facility] appt. Heike Demarco MA [facility] 12-06-2024 Miscellaneous Notes Patient was scheduled for in person [facility] appt 12/06/2024 at 8:20am. Patient did not check in for visit. Checked our waiting room and called for patient, but the patient was not present in the waiting room. I called the patient at 8:28am to see if they were coming to this appt. Called cell phone number listed in patient's chart. [phone] I did provide our [facility] forest botany instructor phone number to assist in rescheduling this apt. ([phone]). This message routed to [facility] schedulers to contact patient to reschedule [facility] appt. Heike Demarco MA documented in this encounter [facility] 11-25-2024 Note HNO ID: [id number] Author: STANFORD HERNANDEZ RN Service: ? Author Type: Registered Nurse Type: Progress Notes Filed: 12/01/2024 14:26 Note Text: RN Pre Visit Questionnaire for upcoming [facility] appointment PROCEDURE : EXCISE RECTAL TUMOR VIA TRANSANAL APPROACH SURGEON : Dr. Jenna Cordova PROCEDURE DATE : 12/10/2024 [facility] APPT : 12/06/2024 Prepared for surgery: RN Pre Visit Questionnaire completed by [facility] chart review and completed with SORAIAD Graham at [facility]. Med list to be faxed to [facility] Do you see a cd technician or other specialist within or outside of [facility]? Yes Dr. Robertson Link - PCP [phone] Any new changes in your symptoms since you last saw your specialist? No Are you a Pre Diabetic/Diabetic/Weight loss/CHF medications Yes Prediabetes/DM Oral/ Injectable Medication Instructions - Dulaglutide (Trulicity) - please HOLD 7 DAYS PRIOR TO SURGERY. Patient injects on : Friday Insulin Medication Instructions Regular - Please take the following medications at your usual dose the day before surgery. Tresiba/Xultophy - take 75% of your usual dose the evening before surgery. If you take in the morning: Check fasting AM glucose, if 200 or greater, take half the prescribed dose. If under 200, do not take your morning dose Regular insulin 11/29 Last dose of Trulicity Any recent hospitalizations within [facility] or outside facilities in the past 3 months Yes 10/22 - 10/27/2024 Sof[facility] Holder [facility] Ble[facility] Patient lives at [place], [place] Please have an up-to-date list of medications in preparation for your [facility] visit. Instructions Given to Patient: Patient given verbal diabetic/weight loss medications preop instructions and voices comprehension and compliance. SIGNATURE: Stanford Hernandez RN PATIENT NAME: Fartun Schneider DATE: November 25, 2024 TIME: 9:37 AM PAGER/CONTACT PHONE: [facility] 11-25-2024 History of Present illness Narrative RN Pre Visit Questionnaire for upcoming [facility] appointment PROCEDURE : EXCISE RECTAL TUMOR VIA TRANSANAL APPROACH SURGEON : Dr. Jenna Cordova PROCEDURE DATE : 12/10/2024 [facility] APPT : 12/06/2024 Prepared for surgery: RN Pre Visit Questionnaire completed by [facility] chart review and completed with SORAIDA Graham at [facility]. Med list to be faxed to [facility] Do you see a cd technician or other specialist within or outside of [facility]? Yes Dr. Robertson Link - PCP [phone] Any new changes in your symptoms since you last saw your specialist? No Are you a Pre Diabetic/Diabetic/Weight loss/CHF medications Yes Prediabetes/DM Oral/ Injectable Medication Instructions - Dulaglutide (Trulicity) - please HOLD 7 DAYS PRIOR TO SURGERY. Patient injects on : Friday Insulin Medication Instructions Regular - Please take the following medications at your usual dose the day before surgery. Tresiba/Xultophy - take 75% of your usual dose the evening before surgery. If you take in the morning: Check fasting AM glucose, if 200 or greater, take half the prescribed dose. If under 200, do not take your morning dose Regular insulin 11/29 Last dose of Trulicity Any recent hospitalizations within [facility] or outside facilities in the past 3 months Yes 10/22 - 10/27/2024 Sofia Hloder GI Bleed Patient lives at [place], [place] Please have an up-to-date list of medications in preparation for your [facility] visit. Instructions Given to Patient: Patient given verbal diabetic/weight loss medications preop instructions and voices comprehension and compliance. SIGNATURE: Stanford Hernandez RN PATIENT NAME: Fartun Schneider DATE: November 25, 2024 TIME: 9:37 AM PAGER/CONTACT PHONE: documented in this encounter [facility] 11-23-2024 Note HNO ID: [id number] Author: RAJESH MARINO RN Service: ? Author Type: Registered Nurse Type: Progress Notes Filed: 11/23/2024 14:45 Note Text: AMBULATORY PATIENT EDUCATION NOTE SURGICAL PREPARATION: TAE SURGERY DATE: 12-10-24 DIAGNOSIS: anorectal polyp READINESS TO LEARN COGNITIVE ABILITY: Alert and oriented MOTIVATION TO LEARN: Eager FAMILY SUPPORT: High - Very involved in pt care PHYSICAL LIMITATIONS AFFECTING LEARNING: None She has mobility issues, uses Rolator walker. Has co morbidities so needs to be done at the hospital METHOD OF INSTRUCTION: Verbal and Written instruction - handouts provided in blue folder SUPPLEMENTAL MATERIAL: - Location of surgery/ date - patient aware date is tentative and subject to change - [facility] appointment needed with in 30 days of surgery - Bowel preparations prior to surgery: *Miralax bowel prep instructions provided *May have sips of water up until 3 hrs of arrival time for surgery WOUND CARE - Anorectal post op instructions handout provided on wound care DIET- handouts provided on diet post op: -Post op diet following EUA = avoiding constipation Patient (and Family member) acknowledges and understands. -They have contact phone number for further concerns and for post operative questions. -Staff Message sent to [place] forest botany instructor with procedure/time/date for patient. TIME SPENT: 20 min Electronically Signed By: Rajesh PIERCE RN [facility] Specialty Herbicide Sprayer [facility] 11-23-2024 History of Present illness Narrative AMBULATORY PATIENT EDUCATION NOTE SURGICAL PREPARATION: TAE SURGERY DATE: 12-10-24 DIAGNOSIS: anorectal polyp READINESS TO LEARN COGNITIVE ABILITY: Alert and oriented MOTIVATION TO LEARN: Eager FAMILY SUPPORT: High - Very involved in pt care PHYSICAL LIMITATIONS AFFECTING LEARNING: None She has mobility issues, uses Rolator walker. Has co morbidities so needs to be done at the hospital METHOD OF INSTRUCTION: Verbal and Written instruction - handouts provided in blue folder SUPPLEMENTAL MATERIAL: - Location of surgery/ date - patient aware date is tentative and subject to change - [facility] appointment needed with in 30 days of surgery - Bowel preparations prior to surgery: *Miralax bowel prep instructions provided *May have sips of water up until 3 hrs of arrival time for surgery WOUND CARE - Anorectal post op instructions handout provided on wound care DIET- handouts provided on diet post op: -Post op diet following EUA = avoiding constipation Patient (and Family member) acknowledges and understands. -They have contact phone number for further concerns and for post operative questions. -Staff Message sent to [place] forest botany instructor with procedure/time/date for patient. TIME SPENT: 20 min Electronically Signed By: Rajesh PIERCE RN [facility] Specialty Herbicide Sprayer documented in this encounter [facility] 11-23-2024 History of Present illness Narrative [facility] NOTE November 23, 2024 Fartun Schneider 69 year old This consult was requested by Dr. Duckworth and my final recommendations will be communicated to the requesting health care provider by way of the shared medical record for internal providers or letter via the [employer] for external providers. 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 Patient/authorized fuels sales representative agreed to proceed Chief Complaint: rectal polyp History of Present Illness: Fartun Schneider is a 69-year-old woman with HTN, HLD, DM, bipolar disorder, fibromyalgia, CKD, NAM, hypothyroidism, and chronic pain, presenting for evaluation of a high-grade intraepithelial lesion in the anorectal region. She is accompanied by her sister. She was recently hospitalized for abdominal pain, nausea, and bloating. During her hospitalization, she underwent EGD and colonoscopy. 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 She denies anal pain and fecal incontinence. She reports a burning pain radiating to her right flank, but understands this is unrelated to the rectal lesion. She has never had a cervical pap smear, has never been tested for HIV, and denies any history of receptive anal intercourse. She is not on any anticoagulants. She uses a walker for ambulation and has a history of hip fracture and surgery. She resides in an assisted living facility and is on baseline Percocet for chronic pain. PAST MEDICAL HISTORY Diagnosis Date Diabetes (HCC) PAST SURGICAL HISTORY Procedure Laterality Date PAST SURGICAL HISTORY OF right knee scrapping PAST SURGICAL HISTORY OF left thumb arthritis surgery PAST SURGICAL HISTORY OF Fatty tumor removed left shoulder Current Outpatient Medications Medication Sig Dispense Refill diazePAM (VALIUM) 2 mg tablet Take 2 mg by mouth every 12 hours. dicyclomine (BENTYL) 10 mg capsule Take 10 mg by mouth before meals and at bedtime. ferrous sulfate 325 mg (65 mg iron) tablet Take 325 mg by mouth once daily. gabapentin (NEURONTIN) 300 mg capsule Take 300 mg by mouth once daily. nystatin (MYCOSTATIN) powder Apply 1 application to affected area two times a day. omeprazole (PRILOSEC) 20 mg capsule Take 20 mg by mouth once daily. ondansetron orally disintegrating (ZOFRAN ODT) 4 mg disintegrating tablet Take 4 mg by mouth every 8 hours as needed. oxyCODONE-acetaminophen (PERCOCET) 5-325 mg tablet Take 1 tablet by mouth every 6 hours as needed. potassium chloride 20 mEq TbER TRULICITY 0.75 mg/0.5 mL pen injector Inject 0.75 mg subcutaneously one time a week. atorvastatin (LIPITOR) 40 mg tablet Take 40 mg by mouth once daily. insulin degludec (TRESIBA FLEXTOUCH) 100 unit/mL (3 mL) injection pen Inject 10 Units subcutaneously every morning. buPROPion (WELLBUTRIN) 75 mg tablet Take 75 mg by mouth two times a day. PARoxetine (PAXIL) 40 mg tablet Take 40 mg by mouth once daily. TRAZODONE 100 mg tablet daily at bedtime. LISINOPRIL 10 mg tablet once daily. levothyroxine (SYNTHROID) 112 mcg tablet Take 112 mcg by mouth once daily. TRAMADOL 50 mg tablet every 4 hours as needed. (Patient not taking: Reported on 11/23/2024) esomeprazole 40 mg capsule Take 40 mg by mouth once daily. (Patient not taking: Reported on 11/23/2024) CITALOPRAM HYDROBROMIDE (CELEXA ORAL) Take by mouth once daily. (Patient not taking: Reported on 11/23/2024) insulin 75/25 lispro protamine/lispro units/mL (HUMALOG MIX 75-25) 100 units/mL susp Inject subcutaneously twice daily with meals. (Patient not taking: Reported on 11/23/2024) No current facility-administered medications for this visit. ALLERGIES Allergen Reactions Celebrex [Celecoxib] Unknown Gold Lopez [Artesia Sta* Unknown Neosporin [Benzalko* Unknown Penicillin G Unknown FAMILY HISTORY Problem Relation Age of Onset other (unknown [Other]) Unknown SOCIAL HISTORY[1] Physical Exam: BP 148/63 Pulse 82 Ht 162.6 cm (5' 4 ) Wt 72.1 kg (158 lb 15.2 oz) SpO2 96% BMI 27.28 kg/m General Appearance: Walker Anorectal: External exam reveals no external lesion. Digital rectal exam reveals a soft/firm 3cm mass starting in anal canal and extending ~1-1.5cm into distal rectum, located in left posterior, slightly lateral location. No pain. Anoscopy deferred Mental Retardation Nurse present: Yes The sensitive examination was discussed with the Patient or Patient's Authorized Creative/Art Director. As applicable, any other physician, advance practice provider, medical student, or other health professional student that will be observing or involved in the sensitive examination for educational or training purposes was discussed with the Patient or Authorized Creative/Art Director. The Patient or Authorized Creative/Art Director has agreed to proceed with the sensitive examination. (Sensitive examination includes inspection and/or palpation of the breasts, pelvis, prostate and anorectal regions) Colonoscopy 10/26/24 - Dr. Duckworth at [facility] Scan on 10/27/2024 10:51 AM by Herberth Dupont: FT - Op Report, 10/22/24 Findings: Small internal hemorrhoids seen on retroflexion Congested mucosa with moderate inflammation involving the rectum up to 20 cm, random biopsies were obtained Large semipedunculated 2 cm polyp in the lower rectum (NICE 3) that appears to touch the dentate line status post biopsies Mild Diverticulosis Normal terminal ileum Pathology Scan on 11/23/2024 11:55 AM by Jamari Casey: [facility] Pathology Report 10/27/24 Assessment Assessment and Plan: Fartun Schneider is a 69 year old woman HTN, HLD, DM, bipolar disorder, fibromyalgia, CKD, NAM, hypothyroidism, and chronic pain on percocet, here after recent colonoscopy revealed a 2 cm pedunculated rectal mass, with at least high-grade squamous intraepithelial lesion on biopsy. VALERIA today revealed a soft, mobile, approximately 3 cm lesion extending from the anus into the rectum, posterior and slightly left of midline. Less likely anal cancer based on consistency but will require excision for definitive diagnosis. - I have recommended Transanal excision of the lesion under anesthesia at [facility] to obtain a definitive diagnosis and rule out malignancy. - Discussed risks of excision, including pain, bleeding, infection, abscess formation, and potential sphincter injury leading to incontinence; patient expressed understanding. - Clarified that current symptoms of abdominal pain, nausea, and bloating are unrelated to the rectal lesion. Will schedule at [place] Informed consent obtained. Medical Decision Making: Data Reviewed: Tests & Documents Reviewed/ordered: Review of prior notes from Outside record Review of Pathology Review of Procedures / Tests: Colonoscopy I have independently interpreted: n/a I have discussed Fartun Schneider's treatment plan and/or results with patient. Risk of morbidity, mortality and/or complications of treatment plan: bran Cordova MD Colorectal Surgery [1] Social History Tobacco Use Smoking status: Never Substance Use Topics Alcohol use: No Drug use: No documented in this encounter [facility] 11-23-2024 Note HNO ID: [id number] Author: JENNA CORDOVA MD Service: ? Author Type: Physician Type: Progress Notes Filed: 11/23/2024 14:42 Note Text: [facility] CLIN[facility] NOTE November 23, 2024 Fartun Schneider 69 year old This consult was requested by Dr. Duckworth and my final recommendations will be communicated to the requesting health care provider by way of the shared medical record for internal providers or letter via the [employer] for external providers. 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 Patient/authorized fuels sales representative agreed to proceed Chief Complaint: rectal polyp History of Present Illness: Fartun Schneider is a 69-year-old woman with HTN, HLD, DM, bipolar disorder, fibromyalgia, CKD, NAM, hypothyroidism, and chronic pain, presenting for evaluation of a high-grade intraepithelial lesion in the anorectal region. She is accompanied by her sister. She was recently hospitalized for abdominal pain, nausea, and bloating. During her hospitalization, she underwent EGD and colonoscopy. 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 She denies anal pain and fecal incontinence. She reports a burning pain radiating to her right flank, but understands this is unrelated to the rectal lesion. She has never had a cervical pap smear, has never been tested for HIV, and denies any history of receptive anal intercourse. She is not on any anticoagulants. She uses a walker for ambulation and has a history of hip fracture and surgery. She resides in an assisted living facility and is on baseline Percocet for chronic pain. PAST MEDICAL HISTORY Diagnosis Date Diabetes (HCC) PAST SURGICAL HISTORY Procedure Laterality Date PAST SURGICAL HISTORY OF right knee scrapping PAST SURGICAL HISTORY OF left thumb arthritis surgery PAST SURGICAL HISTORY OF Fatty tumor removed left shoulder Current Outpatient Medications Medication Sig Dispense Refill diazePAM (VALIUM) 2 mg tablet Take 2 mg by mouth every 12 hours. dicyclomine (BENTYL) 10 mg capsule Take 10 mg by mouth before meals and at bedtime. ferrous sulfate 325 mg (65 mg iron) tablet Take 325 mg by mouth once daily. gabapentin (NEURONTIN) 300 mg capsule Take 300 mg by mouth once daily. nystatin (MYCOSTATIN) powder Apply 1 application to affected area two times a day. omeprazole (PRILOSEC) 20 mg capsule Take 20 mg by mouth once daily. ondansetron orally disintegrating (ZOFRAN ODT) 4 mg disintegrating tablet Take 4 mg by mouth every 8 hours as needed. oxyCODONE-acetaminophen (PERCOCET) 5-325 mg tablet Take 1 tablet by mouth every 6 hours as needed. potassium chloride 20 mEq TbER TRULICITY 0.75 mg/0.5 mL pen injector Inject 0.75 mg subcutaneously one time a week. atorvastatin (LIPITOR) 40 mg tablet Take 40 mg by mouth once daily. insulin degludec (TRESIBA FLEXTOUCH) 100 unit/mL (3 mL) injection pen Inject 10 Units subcutaneously every morning. buPROPion (WELLBUTRIN) 75 mg tablet Take 75 mg by mouth two times a day. PARoxetine (PAXIL) 40 mg tablet Take 40 mg by mouth once daily. TRAZODONE 100 mg tablet daily at bedtime. LISINOPRIL 10 mg tablet once daily. levothyroxine (SYNTHROID) 112 mcg tablet Take 112 mcg by mouth once daily. TRAMADOL 50 mg tablet every 4 hours as needed. (Patient not taking: Reported on 11/23/2024) esomeprazole 40 mg capsule Take 40 mg by mouth once daily. (Patient not taking: Reported on 11/23/2024) CITALOPRAM HYDROBROMIDE (CELEXA ORAL) Take by mouth once daily. (Patient not taking: Reported on 11/23/2024) insulin 75/25 lispro protamine/lispro units/mL (HUMALOG MIX 75-25) 100 units/mL susp Inject subcutaneously twice daily with meals. (Patient not taking: Reported on 11/23/2024) No current facility-administered medications for this visit. ALLERGIES Allergen Reactions Celebrex [Celecoxib] Unknown Gold Lopez [Artesia Sta* Unknown Neosporin [Benzalko* Unknown Penicillin G Unknown FAMILY HISTORY Problem Relation Age of Onset other (unknown [Other]) Unknown SOCIAL HISTORY[1] Physical Exam: BP 148/63 Pulse 82 Ht 162.6 cm (5' 4 ) Wt 72.1 kg (158 lb 15.2 oz) SpO2 96% BMI 27.28 kg/m? General Appearance: Walker Anorectal: External exam reveals no external lesion. Digital rectal exam reveals a soft/firm 3cm mass starting in anal canal and extending ~1-1.5cm into distal rectum, located in left posterior, slightly lateral location. No pain. Anoscopy deferred Mental Retardation Nurse present: Yes The sensitive examination was discussed with the Patient or Patient's Authorized Creative/Art Director. As applicable, any other physician, advance practice provider, medical student, or other health professional student that will be observing or involved in the sensiti (more content not included)... [facility] 11-23-2024 Note Education ([facility]) ---- FARTUN SCHNEIDER ([id number]) 1955 F Date Time Provider Department 11/23/24 RAJESH MARINO [facility] Reason for Visit: Anorectal Polyp [Other] During your visit today, we recorded the following information about you: Allergies As of Date: 11/23/2024 Noted Allergy Reaction CELEBREX (CELECOXIB) 04/20/2013 16 - Unknown GOLD LOPEZ (CORN [id number]*04/20/2013 16 - Unknown NEOSPORIN (BENZALKONIUM CHLORIDE) 04/20/2013 16 - Unknown PENICILLIN G 04/20/2013 16 - Unknown Date Reviewed: 11/23/2024 Reviewed by: Radha Mills [facility] - Fully Assessed Prescriptions as of 11/23/2024 - diazePAM (VALIUM) 2 mg tablet Take 2 mg by mouth every 12 hours. - dicyclomine (BENTYL) 10 mg capsule Take 10 mg by mouth before meals and at bedtime. - ferrous sulfate 325 mg (65 mg iron) tablet Take 325 mg by mouth once daily. - gabapentin (NEURONTIN) 300 mg capsule Take 300 mg by mouth once daily. - levothyroxine (SYNTHROID) 112 mcg tablet Take 112 mcg by mouth once daily. - nystatin (MYCOSTATIN) powder Apply 1 application to affected area two times a day. - omeprazole (PRILOSEC) 20 mg capsule Take 20 mg by mouth once daily. - ondansetron orally disintegrating (ZOFRAN ODT) 4 mg disintegrating tablet Take 4 mg by mouth every 8 hours as needed. - oxyCODONE-acetaminophen (PERCOCET) 5-325 mg tablet Take 1 tablet by mouth every 6 hours as needed. - potassium chloride 20 mEq TbER - TRULICITY 0.75 mg/0.5 mL pen injector Inject 0.75 mg subcutaneously one time a week. - atorvastatin (LIPITOR) 40 mg tablet Take 40 mg by mouth once daily. - insulin degludec (TRESIBA FLEXTOUCH) 100 unit/mL (3 mL) injection pen Inject 10 Units subcutaneously every morning. - buPROPion (WELLBUTRIN) 75 mg tablet Take 75 mg by mouth two times a day. - PARoxetine (PAXIL) 40 mg tablet Take 40 mg by mouth once daily. - TRAZODONE 100 mg tablet daily at bedtime. - TRAMADOL 50 mg tablet every 4 hours as needed. - LISINOPRIL 10 mg tablet once daily. - esomeprazole 40 mg capsule Take 40 mg by mouth once daily. - CITALOPRAM HYDROBROMIDE (CELEXA ORAL) Take by mouth once daily. - insulin 75/25 lispro protamine/lispro units/mL (HUMALOG MIX 75-25) 100 units/mL susp Inject subcutaneously twice daily with meals. Encounter Status:Closed by RAJESH MARINO on 11/23/24 [facility] 11-05-2024 Hospital Discharge instructions Follow Up Care 11/05/2024 13:32:17 With:Marcelo Call DO, FAM Address: [address] [address]- When:6 weeks Comments:6 WEEKS FOLLOWUP With:Marcelo Call DO, FAM Address: [address] [place] [address]- When:3 months Comments:3 MONTH DIABETIC CHECKUP [facility] 10-27-2024 Hospital Discharge instructions Follow Up Care 10/27/2024 11:25:58 With:Marcelo Call DO, FAM Address: [address] [place] [address]- When: Unknown Comments:As scheduled [facility] 10-27-2024 Note Discharge Summary Admission and Discharge Information Admit Date/Time:10/22/2024 20:02 Admitting Physician - Sanaz ALEJANDRA DO Admitting Diagnoses: Discharge Order Date Discharge Patient - Ordered -- 10/27/24 11:00:00 EDT Discharge Diagnoses 1. GI bleed, 10/22/2024 2. Acute colitis, 10/22/2024 3. Abnormal urinalysis, 10/23/2024 4. Acute hypotension, 10/22/2024 5. Hyperlipidemia, 10/22/2024 6. HTN (hypertension), 10/22/2024 7. Hypothyroidism, 10/22/2024 8. DM2 (diabetes mellitus, type 2), 10/22/2024 9. Chronic GERD, 10/22/2024 10. Chronic prescription opiate use, 10/22/2024 11. Bipolar disorder, 10/22/2024 12. On deep vein thrombosis (DVT) prophylaxis, 10/22/2024 13. Acute blood loss anemia, 10/27/2024 Abdominal pain, 10/22/2024 Diarrhea, 10/22/2024 Diverticulosis, 10/26/2024 Gastropathy, 10/26/2024 Hernia, hiatal, 10/26/2024 Hypotension, 10/22/2024 Proctitis, 10/26/2024 Rectal polyp, 10/26/2024 Procedure History Colonoscopy (10/26/2024), EGD - esophagogastroduodenoscopy (10/26/2024), Aspiration of hip joint (04/11/2023), Aspiration of hip joint (02/13/2023), Repair of fracture of hip by nailing using fluoroscopic guidance (12/20/2022), History of hemiarthroplasty of right hip (11/25/2022), Esophagogastroduodenoscopy (05/09/2022), Arthroscopy of shoulder (08/16/2020), Excision of mass of neck (03/11/2019), Arthroplasty of finger (03/10/2018), percutaneous pinning left hip (10/03/2014), left total knee replacement with hardware removal (12/07/2013), right total knee arthroplasty (06/08/2013), Right knee (12/14/2012), BASILAR ARTHROPLASTY OF THUMB, Cyst - diagnostic aspiration, ESWL of kidney, gallbladder removed, jaw surgery, left knee ORIF, RENY BSO - Total abdominal hysterectomy and bilateral salpingo-oophorectomy, 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. Hospital Course 69-year-old female presented to the hospital with nausea vomiting, abdominal pain with bloody diarrhea ; patient did have hypotension on admission which resolved with fluid resuscitation. CT of the abdomen and pelvis in the ED showed diffuse colitis involving the left colon showing small amounts of hemorrhage from the rectal area near the anus. Patient was admitted to the hospital secondary to acute colitis with acute blood loss anemia due to acute GI bleed. Patient was made n.p.o., treated with IV fluids, PPI with GI consultation. Hemoglobin and hematocrit was monitored for any acute drops. On 10/26 patient underwent a colonoscopy which revealed hemorrhoids, moderate inflammation involving the rectum up to 20 cm, large semipedunculated 2 cm polyp in the lower rectum, mild diverticulosis. Recommendations per GI was for patient to undergo repeat colonoscopy at [facility] versus surgery with follow-up in 1 to 2 weeks with for further recommendations. Urinalysis on admission was abnormal. Final urine culture was positive for E. coli ESBL but only 4000 CFU's. Patient was initially treated with IV ceftriaxone was DC'd with urine culture has not effective. No further antibiotics were not used secondary to no symptoms and little positive culture results. Patient was started on clear liquids advance to full liquids and was on a regular diet and tolerating without any issues. Patient still complains of very mild left lower quadrant pain. She has had no further episodes of acute bleeding. Today on exam vitals and labs are stable. Last hemoglobin was 11.7: Electrolytes are normal today. Acute blood loss anemia secondary to proctitis and rectal polyp. With acute colitis. GI to set up referral to advanced endoscopy center for polyp removal in the rectum. Patient was instructed to avoid NSAIDs. Patient anxious to discharge home today and will do so in stable condition. Case was discussed with Dr. Almaguer who is in agreement with current discharge plan. Discharge Time: 34 minutes spent performing discharge services, including reviewing the patient's medications, discussing the plan of care, and providing instructions for follow-up care . This documentation was transcribed using voice recognition software. Several attempts were made to ensure accuracy. However inadvertent computerized balance assembler errors may be present. Services Consulted Consult to Gastroenterology - Ordered -- 10/22/24 20:03:00 EDT, GI Bleed, Consult and Co-manage Physical Exam Vitals & Measurements T: 36.3 ???C(Oral) TMIN: 36.3 ???C(Oral) TMAX: 36.6 ???C(Axillary) HR: 91(Monitored) RR: 16 BP: 159/72 SpO2: 97% WT: 74.9 kg General: Alert and oriented, No acute distress. Eye: Pupils are equal, round and reactive to light. HENT: Normocephalic, Normal hearing, No pharyngeal erythema. Neck: Supple, Non-tender, No lymphadenopathy. Respiratory: Lungs are clear to auscultation, Respirations are non-labored, Breath sounds are equal, Symmetrical chest wall expansion. Cardiovascular: Normal rate, Regular rhythm, Good pulses equal in all extremities, Normal peripheral perfusion, No edema. Gastr (more content not included)... [facility] Comment on above: Result Comment: Elec tronically Signed By: Anu MANZANO\.br\Date and Time Signed: 10/27/24 11:08 EDT\.br\Electronically Co-Signed By: Randy Guevara DO.br\Date and Time Co-Signed: 10/27/24 11:56 EDT 10-27-2024 Note GetWell Understands Education Yes GetWell Education Video Preventing Falls in the Hospital GetWell Learning Participants Patient [facility] 10-27-2024 Note GetWell Understands Education Yes GetWell Education Video Preventing Falls in the [facility] GetWell Learning Participants Patient [facility] 10-27-2024 Note GetWell Understands Education Yes GetWell Education Video Diabetes: Benefits of Testing Your Blood Sugar [employer] Learning Participants Patient [facility] 10-26-2024 Note Progress Note-Physic paulina Patient: FARTUN SCHNEIDER Age: 69 years Sex: Female : 1955 Associated Diagnoses: None Author: Malcolm Park MD Postoperative Information Postoperative disposition: Postoperative disposition: To PACU. Optimetrix number: Optimetrix number [id number]. Anesthetic utilized: General. Health Status Allergies: Allergic Reactions (Selected) Severity Not Documented Adhesive Bandage- Rash. Amoxicillin- Anaphylaxis. Celebrex- Rash. Goldbond cream- Rash. Neosporin- Rash. Noxema Triple Clean- Rash. Penicillin- Anaphylaxis. Sulfamethoxazole- Unknown. Physical Examination VS/Measurements Pain Assessment: Controlled. General: Awake, Appropriate. Respiratory: Adequate air exchange. Cardiovascular: Stable. Neurological Assessment Anesthetic outcome No anesthetic complications noted. Adequate pain relief. no nausea. Review / Management Condition: Stable. Plan Transfer/Discharge: Transfer/Discharge Discharge when meets criteria. [facility] Comment on above: Result Comment: Elec tronically Signed By: Malcolm Park MD\.br\Date and Time Signed: 10/26/24 15:32 EDT 10-26-2024 Note Progress Note-Physic paulina Assessment/Plan PLAN; 1. GI bleed (K92.2: Gastrointestinal hemorrhage, unspecified) Acute blood loss anemia due to acute GI bleed from acute colitis/?hemorrhoids; Stool occult positive Hemoglobin did drop to 9.6 --but trending up now 10.6 scant blood noted in stool yesterday per nursing. CT abd/pelvis : diffuse colitis involving the left colon. shows small amt of hemorrhage from rectal area near anus. pt does have hemorrhoids. Consult GI --made aware by ED awaiting further input. IVF off today. Full liquid today post scopes and advance diet as tolerated. PPI Ferrous . Periods of hypokalemia will replace as needed. 10/26 colonoscopy revealed :Hemorrhoids, moderate inflammation involving the rectum up to 20 cm, large semipedunculated 2 cm polyp in the lower rectum, mild diverticulosis. Recommendations: to refer patient to undergo repeat colonoscopy at advanced [facility] center versus surgery. Follow-up in 1 to 2 weeks supportive treatment for now. 2. Acute colitis (K52.9: Noninfective gastroenteritis and colitis, unspecified) Stool studies pending See #1 3. Abnormal urinalysis (R82.90: Unspecified abnormal findings in urine) UA abnormal. Final urine culture positive for Ecoli ESBL 4000 cfus Discontinue IV Ceftriaxone --does not tx Will hold off on antibiotics at this time as pt asymptomatic and voiding w/o any issues. 4. Acute hypotension (I95.9: Hypotension, unspecified) Improved since admission. w/ fluid resuscitation Hydralazine for SBP >160 prn 5. Hyperlipidemia (E78.5: Hyperlipidemia, unspecified) Statin 6. HTN (hypertension) (I10: Essential (primary) hypertension) Coreg , Lisinopril 7. Hypothyroidism (E03.9: Hypothyroidism, unspecified) Levothyroxine 8. DM2 (diabetes mellitus, type 2) (E11.9: Type 2 diabetes mellitus without complications) AccuChecks AC/HS w/ ss insulin--controlled currently. Dulaglutide .75mg qweek. Lantus 15 units daily will add Glargine today 9. Chronic GERD (K21.9: Gastro-esophageal reflux disease without esophagitis) PPI 10. 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 11. Bipolar disorder (F31.9: Bipolar disorder, unspecified) bupropion, Valium , Paxil 12. On deep vein thrombosis (DVT) prophylaxis (Z79.899: Other fdc (current) drug therapy) SCDs Subjective Patient seen at bedside this morning. Still complains of mild left lower quadrant pain. No bloody stools noted. Patient denies chest pain, shortness of breath, nausea or vomiting. Objective Vitals & Measurements T: 36.5 ???C(Oral) TMIN: 36.3 ???C(Axillary) TMAX: 36.8 ???C(Temporal Artery) HR: 87(Monitored) RR: 16 BP: 131/67 SpO2: 98% WT: 76.0 kg Intake & Output This visit (24 hour periods starting at 07:00 EDT) 10/26/24 * 10/25/24 10/24/24 Total Summary Intake mL 61 4,623.5 992 Output mL -- -- 1,500 Fluid Balance 61 4,623.5 -508 Intake (7) Oral Intake mL -- 600 970 Sodium Chloride 0.9% intravenous solution 1,000 mL mL 50 -- -- hydrALAZINE mL -- 0.5 -- methylPREDNISolone mL 1 1 -- ondansetron mL -- 2 2 pantoprazole mL 10 20 20 polyethylene glycol electrolyte solution mL -- 4,000 -- Total 61 4,623.5 992 Output (1) Urine Voided mL -- -- 1,500 Total -- -- 1,500 Counts (2) Diaper Count -- -- 1 Stool Count -- -- 1 * This column has not completed the indicated time period. Physical Exam General: Alert and oriented, No acute distress. Eye: Pupils are equal, round and reactive to light. HENT: Normocephalic, Normal hearing, No pharyngeal erythema. Neck: Supple, Non-tender, No lymphadenopathy. Respiratory: Lungs are clear to auscultation, Respirations are non-labored, Breath sounds are equal, Symmetrical chest wall expansion. Cardiovascular: Normal rate, Regular rhythm, Good pulses equal in all extremities, Normal peripheral perfusion, No edema. Gastrointestinal: Soft, slightly tender to LLQ, Non-distended, Normal bowel sounds. Musculoskeletal Normal range of motion. Normal strength. Integumentary: Warm, Dry, Intact. Neurologic: Alert, Oriented, No focal deficits. Psychiatric: Cooperative, Appropriate mood & affect, Normal judgment. Lab Results HGB: 11.7 gm/dL Low (10/26/24 05:54:00) Hct: 32.8 % Low (10/26/24 05:54:00) Sodium Lvl: 142 mmol/L (10/26/24 05:54:00) Potassium Lvl: 3.3 mmol/L Low (10/26/24 05:54:00) Chloride: 107 mmol/L (10/26/24 05:54:00) CO2: 26 mmol/L (10/26/24 05:54:00) AGAP: 12 mEq/L (10/26/24 05:54:00) Glucose Cap: 147 mg/dL High (10/26/24 09:57:00) POC Device SN: [id number] (10/26/24 09:57:00) POC User ID: [id number] (10/26/24 09:57:00) POC Username: STEPHANIE JANE (10/26/24 09:57:00) Problem List/Past Medical History Ongoing At risk for falls Bipolar disorder Chronic GERD Chronic pain Chronic prescription opiate use Latonya (more content not included)... [facility] Comment on above: Result Comment: Elec tronically Signed By: Anu MANZANO\.br\Date and Time Signed: 10/26/24 11:14 EDT\.br\Electronically Co-Signed By: Randy Guevara DO\.br\Date and Time Co-Signed: 10/26/24 12:27 EDT 10-26-2024 Note Progress Note-Mony gallardo Patient: FARTUN SCHNEIDER Age: 69 years Sex: Female : 1955 Associated Diagnoses: None Author: Malcolm Park MD Preoperative Information Anesthesia Preop Info: Time patient last ate or drank 10/26/2024 00:00:00. Anesthesia history: Patient history: None. Family history+: None. Informed consent: Signed by patient. Including risks, benefits, and alternatives related to the: Anesthetic plan. Re-evaluation prior to induction: Malcolm Park MD. Review of Systems Eye Ear/Nose/Mouth/Throat Respiratory: No shortness of breath, No cough. Cardiovascular: Negative, No chest pain. Gastrointestinal: No heartburn. Musculoskeletal Neurologic Health Status Allergies: Allergic Reactions (Selected) Severity Not Documented Adhesive Bandage- Rash. Amoxicillin- Anaphylaxis. Celebrex- Rash. Goldbond cream- Rash. Neosporin- Rash. Noxema Triple Clean- Rash. Penicillin- Anaphylaxis. Sulfamethoxazole- Unknown., Allergies (8) Active Severity Reaction amoxicillin Anaphylaxis penicillin Anaphylaxis Celebrex Rash goldbond cream Rash Noxema Triple Clean Rash sulfamethoxazole unknown Adhesive Bandage Rash Neosporin Rash Current medications: (Selected) Inpatient Medications Ordered Benadryl 25 mg Cap: 25 mg = 1 cap(s), Cap, Oral, q6hr PRN Itching, Routine, Start date 10/22/24 21:01:00 EDT, 10/22/24 21:01:00 EDT Bentyl 10 mg Cap: 10 mg = 1 cap(s), Cap, Oral, QID, Routine, Start date 10/23/24 9:00:00 EDT, 10/22/24 23:26:00 EDT Dextrose 50% Soln-IV: 50 mL, Soln-IV, IV Push, q15min PRN Low blood sugar, Routine, Start date 10/22/24 21:01:00 EDT, Blood glucose < 70 mg/dL Insulin Lispro Moderate Dose (Usual) Sliding Scale: 0-12 Unit(s), Injection-Insulin, SubCutaneous, QIDACHS, NOW, Start date 10/22/24 21:18:00 EDT Lactated Ringers IV Jane 1000 mL 1,000 mL: 1,000 mL, IV, 100 mL/hr, Routine, Start date 10/26/24 9:35:00 EDT, 10 hour(s), Total volume (mL): 1,000, 71 kg, 1.79, m2 NS 1000 mL Soln-IV 1,000 mL: 1,000 mL, IV, 20 mL/hr, Routine, Start date 10/25/24 11:37:00 EDT, 50 hour(s), Total volume (mL): 1,000, 71 kg, SEND PATIENT TO ENDOSCOPY WITH IV INFUSING, 1.79, m2 Paxil 20 mg Tab: 60 mg = 3 tab(s), Tab, Oral, Daily, Routine, Start date 10/23/24 9:00:00 EDT Valium 5 mg Tab: 2.5 mg = 0.5 tab(s), Tab, Oral, TID, Routine, Start date 10/23/24 8:00:00 EDT, 10/22/24 23:26:00 EDT Wellbutrin SR 150 mg Tab-ER: 150 mg = 1 tab(s), Tab-ER, Oral, BID, NOW, Start date 10/22/24 23:25:00 EDT, 10/22/24 23:25:00 EDT Zofran 4 mg/2 mL Injection: 4 mg = 2 mL, Injection, IV Push, q6hr PRN Nausea, Routine, Start date 10/22/24 21:01:00 EDT, 10/22/24 21:01:00 EDT acetaminophen 325 mg Tab: 650 mg = 2 tab(s), Tab, Oral, q6hr PRN Pain, Routine, Start date 10/22/24 21:01:00 EDT, 10/22/24 21:01:00 EDT atorvastatin 40 mg Tab: 40 mg = 1 tab(s), Tab, Oral, Daily, Routine, Start date 10/23/24 9:00:00 EDT, 10/22/24 23:25:00 EDT carvedilol 12.5 mg Tab: 12.5 mg = 1 tab(s), Tab, Oral, BID, NOW, Start date 10/22/24 23:25:00 EDT, 10/22/24 23:25:00 EDT gabapentin 300 mg Cap: 900 mg = 3 cap(s), Cap, Oral, TID, NOW, Start date 10/22/24 23:27:00 EDT, 10/22/24 23:27:00 EDT glucagon recombinant 1 mg Inj: 1 mg = 1 EA, Injection, IntraMuscular, q15min PRN Low blood sugar, Routine, Start date 10/22/24 21:01:00 EDT, Blood glucose <70 mg/dL, 10/22/24 21:01:00 EDT glucose Oral gel: 15 gm = 32 mL, Gel, Oral, q15min PRN Low blood sugar, Routine, Start date 10/22/24 21:01:00 EDT, Blood glucose <70 mg/dL, 10/22/24 21:01:00 EDT hydrALAZINE 20 mg/mL Inj: 10 mg = 0.5 mL, Injection, IV Push, q6hr PRN Other (see comment), Routine, Start date 10/22/24 21:01:00 EDT, 10/22/24 21:01:00 EDT insulin glargine 100 units/mL SubQ Jane 10 mL: 10 unit(s) = 0.1 mL, Injection-Insulin, SubCutaneous, Bedtime, Routine, Start date 10/23/24 21:00:00 EDT levothyroxine 112 mcg (0.112 mg) Tab: 112 mcg = 1 tab(s), Tab, Oral, Daily, Routine, Start date 10/23/24 6:30:00 EDT, 10/22/24 23:27:00 EDT lisinopril 10 mg Tab: 10 mg = 1 tab(s), Tab, Oral, Daily, Routine, Start date 10/23/24 9:00:00 EDT, 10/22/24 23:27:00 EDT methylPREDNISolone 40 mg preservative-free injection (SOLU-MEDROL): 40 mg = 1 mL, Injection, IV Push, Daily for 3 dose(s), Stop date 10/28/24 8:59:00 EDT, NOW, Start date 10/25/24 16:58:00 EDT, 10/25/24 16:58:00 EDT oxyCODONE 5 mg Tab: 5 mg = 1 tab(s), Tab, Oral, q4hr PRN Pain for 5 day(s), Stop date 10/27/24 21:01:00 EDT, Routine, Start date 10/22/24 21:02:00 EDT, 10/22/24 21:02:00 EDT oxybutynin 5 mg ER Tab: 5 mg = 1 tab(s), Tab-ER, Oral, Daily, Routine, Start date 10/23/24 9:00:00 EDT, 10/22/24 23:28:00 EDT pantoprazole 40 mg IV Inj: 40 mg = 10 mL, Injection, IV Push, BID, Routine, Start date 10/23/24 9:00:00 EDT, mL/hr, Infuse over 2 minute(s) potassium chloride additive + premix generic diluent 100 mL: 20 mEq = 100 mL, Soln-IV, IV Piggyback, q2hr for 2 dose(s), Stop date 10/26/24 11:59:00 EDT, Routine, Start date (more content not included)... [facility] Comment on above: Result Comment: Elec tronically Signed By: Xavier BANKS, Malcolm Tan\.br\Date and Time Signed: 10/26/24 09:38 EDT 10-25-2024 Note Progress Note-Physic paulina Assessment/Plan PLAN; 1. GI bleed (K92.2: Gastrointestinal hemorrhage, unspecified) Acute blood loss anemia due to acute GI bleed from acute colitis/?hemorrhoids; Stool occult positive Hemoglobin did drop to 9.6 --but trending up now 10.6 scant blood noted in stool yesterday per nursing. CT abd/pelvis : diffuse colitis involving the left colon. shows small amt of hemorrhage from rectal area near anus. pt does have hemorrhoids. Consult GI --made aware by ED awaiting further input. IVF off today. Advance today to bland. PPI Ferrous 2. Acute colitis (K52.9: Noninfective gastroenteritis and colitis, unspecified) Stool studies pending See #1 Pt on anbx for UA. 3. Abnormal urinalysis (R82.90: Unspecified abnormal findings in urine) UA abnormal. Final urine culture positive for Ecoli ESBL 4000 cfus Discontinue IV Ceftriaxone --does not tx Will hold off on antibiotics at this time as pt asymptomatic and voiding w/o any issues. 4. Acute hypotension (I95.9: Hypotension, unspecified) Improved since admission. w/ fluid resuscitation Hydralazine for SBP >160 prn 5. Hyperlipidemia (E78.5: Hyperlipidemia, unspecified) Statin 6. HTN (hypertension) (I10: Essential (primary) hypertension) Coreg , Lisinopril 7. Hypothyroidism (E03.9: Hypothyroidism, unspecified) Levothyroxine 8. DM2 (diabetes mellitus, type 2) (E11.9: Type 2 diabetes mellitus without complications) AccuChecks AC/HS w/ ss insulin--controlled currently. Dulaglutide .75mg qweek. Lantus 15 units daily will add Glargine today 9. Chronic GERD (K21.9: Gastro-esophageal reflux disease without esophagitis) PPI 10. Chronic prescription opiate use (Z79.891: FPC (current) use of opiate analgesic) oxycodone prn. 11. Bipolar disorder (F31.9: Bipolar disorder, unspecified) bupropion, Valium , Paxil 12. On deep vein thrombosis (DVT) prophylaxis (Z79.899: Other fdc (current) drug therapy) SCDs Subjective Patient seen at bedside this morning. Still complains of left lower quadrant periumbilical pain but improving. Did have very soft/formed stool per nursing. Stool was collected but lab was unable to obtain culture results and will need redone. Nursing states scant amount of blood was noted in stool. Patient started diet yesterday and states that she is tolerating that well. Denies any fevers, chills. Hemoglobin is improving. Patient positive for acute UTI awaiting urine culture results. Patient likely home tomorrow if she continues to improve and can tolerate diet. Objective Vitals & Measurements T: 36.6 ???C(Axillary) TMIN: 36.5 ???C(Axillary) TMAX: 36.7 ???C(Oral) HR: 68(Monitored) RR: 18 BP: 159/84 SpO2: 93% Intake & Output This visit (24 hour periods starting at 07:00 EDT) 10/25/24 * 10/24/24 10/23/24 Total Summary Intake mL 10 992 1,587.57 Output mL -- 1,500 1,000 Fluid Balance 10 -508 587.57 Intake (5) Oral Intake mL -- 970 -- Sodium Chloride 0.9% intravenous solution 1,000 mL mL -- -- 1,517.57 Sodium Chloride 0.9%, ceftriaxone mL -- -- 50 ondansetron mL -- 2 -- pantoprazole mL 10 20 20 Total 10 992 1,587.57 Output (1) Urine Voided mL -- 1,500 1,000 Total -- 1,500 1,000 Counts (2) Diaper Count -- 1 -- Stool Count -- 1 1 * This column has not completed the indicated time period. Physical Exam General: Alert and oriented, No acute distress. Eye: Pupils are equal, round and reactive to light. HENT: Normocephalic, Normal hearing, No pharyngeal erythema. Neck: Supple, Non-tender, No lymphadenopathy. Respiratory: Lungs are clear to auscultation, Respirations are non-labored, Breath sounds are equal, Symmetrical chest wall expansion. Cardiovascular: Normal rate, Regular rhythm, Good pulses equal in all extremities, Normal peripheral perfusion, No edema. Gastrointestinal: Soft, slightly tender to LLQ, Non-distended, Normal bowel sounds. Musculoskeletal Normal range of motion. Normal strength. Integumentary: Warm, Dry, Intact. Neurologic: Alert, Oriented, No focal deficits. Psychiatric: Cooperative, Appropriate mood & affect, Normal judgment. Lab Results WBC: 5.8 E9/L (10/25/24 06:08:00) RBC: 3.4 E12/L Low (10/25/24 06:08:00) HGB: 10.6 gm/dL Low (10/25/24 06:08:00) Hct: 31 % Low (10/25/24 06:08:00) MCV: 92.6 fL (10/25/24 06:08:00) MCH: 31.7 pg (10/25/24 06:08:00) MCHC: 34.3 gm/dL (10/25/24 06:08:00) RDW: 13.3 % (10/25/24 06:08:00) Platelet: 139 E9/L Low (10/25/24 06:08:00) MPV: 8.4 fL (10/25/24 06:08:00) RBC Morph: NORMAL (10/25/24 06:08:00) Glucose Lvl: 135 mg/dL (10/25/24 06:08:00) BUN: 5 mg/dL (10/25/24 06:08:00) Creatinine: 0.6 mg/dL (10/25/24 06:08:00) eGFR: 96 mL/min/1.73 m2 (10/25/24 06:08:00) BUN/Creat Ratio: 8 Low (10/25/24 06:08:00) Sodium Lvl: 144 mmol/L (10/25/24 06:08:00) Potassium Lvl: 3.6 mmol/L (10/25/24 06:08:00) Chloride: 113 mmol/L High (more content not included)... [facility] Comment on above: Result Comment: Elec tronically Signed By: Anu MANZANO\.br\Date and Time Signed: 10/25/24 11:09 EDT\.br\Electronically Co-Signed By: Randy Guevara DO.br\Date and Time Co-Signed: 10/25/24 16:47 EDT 10-25-2024 Note Consultation Note Patient: FARTUN SCHNEIDER Age: 69 years Sex: Female : 1955 Associated Diagnoses: None Author: Donita BANKS, Marga Arnold. History of Present Illness Gastroenterology Consult\ 69-year-old female Presents with abdominal pain diarrhea started a week ago Reported to have some blood in her stool Patient has decreased appetite Had a colonoscopy but long time ago Stool studies came back negative Continues to have pain when she eats CT scan with colitis throughout the whole colon Review of Systems Constitutional Negative except for HPI Health Status Allergies: Allergies (8) Active Severity Reaction amoxicillin Anaphylaxis penicillin Anaphylaxis Celebrex Rash goldbond cream Rash Noxema Triple Clean Rash sulfamethoxazole unknown Adhesive Bandage Rash Neosporin Rash Current medications: (Selected) Inpatient Medications Ordered Benadryl 25 mg Cap: 25 mg = 1 cap(s), Cap, Oral, q6hr PRN Itching, Routine, Start date 10/22/24 21:01:00 EDT, 10/22/24 21:01:00 EDT Bentyl 10 mg Cap: 10 mg = 1 cap(s), Cap, Oral, QID, Routine, Start date 10/23/24 9:00:00 EDT, 10/22/24 23:26:00 EDT Dextrose 50% Soln-IV: 50 mL, Soln-IV, IV Push, q15min PRN Low blood sugar, Routine, Start date 10/22/24 21:01:00 EDT, Blood glucose < 70 mg/dL Insulin Lispro Moderate Dose (Usual) Sliding Scale: 0-12 Unit(s), Injection-Insulin, SubCutaneous, QIDACHS, NOW, Start date 10/22/24 21:18:00 EDT NS 1000 mL Soln-IV 1,000 mL: 1,000 mL, IV, 20 mL/hr, Routine, Start date 10/25/24 11:37:00 EDT, 50 hour(s), Total volume (mL): 1,000, 71 kg, SEND PATIENT TO ENDOSCOPY WITH IV INFUSING, 1.79, m2 Paxil 20 mg Tab: 60 mg = 3 tab(s), Tab, Oral, Daily, Routine, Start date 10/23/24 9:00:00 EDT Valium 5 mg Tab: 2.5 mg = 0.5 tab(s), Tab, Oral, TID, Routine, Start date 10/23/24 8:00:00 EDT, 10/22/24 23:26:00 EDT Wellbutrin SR 150 mg Tab-ER: 150 mg = 1 tab(s), Tab-ER, Oral, BID, NOW, Start date 10/22/24 23:25:00 EDT, 10/22/24 23:25:00 EDT Zofran 4 mg/2 mL Injection: 4 mg = 2 mL, Injection, IV Push, q6hr PRN Nausea, Routine, Start date 10/22/24 21:01:00 EDT, 10/22/24 21:01:00 EDT acetaminophen 325 mg Tab: 650 mg = 2 tab(s), Tab, Oral, q6hr PRN Pain, Routine, Start date 10/22/24 21:01:00 EDT, 10/22/24 21:01:00 EDT atorvastatin 40 mg Tab: 40 mg = 1 tab(s), Tab, Oral, Daily, Routine, Start date 10/23/24 9:00:00 EDT, 10/22/24 23:25:00 EDT carvedilol 12.5 mg Tab: 12.5 mg = 1 tab(s), Tab, Oral, BID, NOW, Start date 10/22/24 23:25:00 EDT, 10/22/24 23:25:00 EDT gabapentin 300 mg Cap: 900 mg = 3 cap(s), Cap, Oral, TID, NOW, Start date 10/22/24 23:27:00 EDT, 10/22/24 23:27:00 EDT glucagon recombinant 1 mg Inj: 1 mg = 1 EA, Injection, IntraMuscular, q15min PRN Low blood sugar, Routine, Start date 10/22/24 21:01:00 EDT, Blood glucose <70 mg/dL, 10/22/24 21:01:00 EDT glucose Oral gel: 15 gm = 32 mL, Gel, Oral, q15min PRN Low blood sugar, Routine, Start date 10/22/24 21:01:00 EDT, Blood glucose <70 mg/dL, 10/22/24 21:01:00 EDT hydrALAZINE 20 mg/mL Inj: 10 mg = 0.5 mL, Injection, IV Push, q6hr PRN Other (see comment), Routine, Start date 10/22/24 21:01:00 EDT, 10/22/24 21:01:00 EDT insulin glargine 100 units/mL SubQ Jane 10 mL: 10 unit(s) = 0.1 mL, Injection-Insulin, SubCutaneous, Bedtime, Routine, Start date 10/23/24 21:00:00 EDT levothyroxine 112 mcg (0.112 mg) Tab: 112 mcg = 1 tab(s), Tab, Oral, Daily, Routine, Start date 10/23/24 6:30:00 EDT, 10/22/24 23:27:00 EDT lisinopril 10 mg Tab: 10 mg = 1 tab(s), Tab, Oral, Daily, Routine, Start date 10/23/24 9:00:00 EDT, 10/22/24 23:27:00 EDT oxyCODONE 5 mg Tab: 5 mg = 1 tab(s), Tab, Oral, q4hr PRN Pain for 5 day(s), Stop date 10/27/24 21:01:00 EDT, Routine, Start date 10/22/24 21:02:00 EDT, 10/22/24 21:02:00 EDT oxybutynin 5 mg ER Tab: 5 mg = 1 tab(s), Tab-ER, Oral, Daily, Routine, Start date 10/23/24 9:00:00 EDT, 10/22/24 23:28:00 EDT pantoprazole 40 mg IV Inj: 40 mg = 10 mL, Injection, IV Push, BID, Routine, Start date 10/23/24 9:00:00 EDT, mL/hr, Infuse over 2 minute(s) polyethylene glycol 3350 with electrolytes Oral Pwdr for Jane 4000 mL (GoLytely): 2,000 mL, Powder, Oral, q6hr, Stop date 10/26/24 3:00:00 EDT, Routine, Start date 10/25/24 16:00:00 EDT traZODONE 50 mg Tab: 100 mg = 2 tab(s), Tab, Oral, Once a day (at bedtime), NOW, Start date 10/22/24 23:28:00 EDT, 10/22/24 23:28:00 EDT Prescriptions Prescribed Assure Prism Multi Blood Glucose Monitoring System: Assure Prism Multi Blood Glucose Monitoring System, See Instructions, 1 kit(s), 2, To check blood glucose levels, [facility], Supply, 162.5, cm, 12/30/23 17:04:00 EDT, Height/Length Dosing, 79.1, kg, 12/30/23 17:04:00 EDT, Weight Dosing... Bentyl 10 mg Cap: 10 mg = 1 cap(s), Oral, QID, # 360 cap(s), Refills(s) 1, Pharmacy: [facility], 162, cm, 08/23/24 15:21:00 EDT, Height/Length Dosing, 73, kg, 08/23/24 15:21:00 EDT, Weight Dosing BuPROPion (Eqv-Wellbutrin SR) 150 mg/12 hours oral tab (more content not included)... [facility] Comment on above: Result Comment: Elec tronically Signed By: Marga Duckworth MD\.br\Date and Time Signed: 10/25/24 11:40 EDT 10-25-2024 Note Consultation Note Patient: FARTUN SCHNEIDER Age: 69 years Sex: Female : 1955 Associated Diagnoses: None Author: Marga Duckworth MD History of Present Illness Gastroenterology Consult\ 69-year-old female Presents with abdominal pain diarrhea started a week ago Reported to have some blood in her stool Patient has decreased appetite Had a colonoscopy but long time ago Stool studies came back negative Continues to have pain when she eats CT scan with colitis throughout the whole colon Review of Systems Constitutional Negative except for HPI Health Status Allergies: Allergies (8) Active Severity Reaction amoxicillin Anaphylaxis penicillin Anaphylaxis Celebrex Rash goldbond cream Rash Noxema Triple Clean Rash sulfamethoxazole unknown Adhesive Bandage Rash Neosporin Rash Current medications: (Selected) Inpatient Medications Ordered Benadryl 25 mg Cap: 25 mg = 1 cap(s), Cap, Oral, q6hr PRN Itching, Routine, Start date 10/22/24 21:01:00 EDT, 10/22/24 21:01:00 EDT Bentyl 10 mg Cap: 10 mg = 1 cap(s), Cap, Oral, QID, Routine, Start date 10/23/24 9:00:00 EDT, 10/22/24 23:26:00 EDT Dextrose 50% Soln-IV: 50 mL, Soln-IV, IV Push, q15min PRN Low blood sugar, Routine, Start date 10/22/24 21:01:00 EDT, Blood glucose < 70 mg/dL Insulin Lispro Moderate Dose (Usual) Sliding Scale: 0-12 Unit(s), Injection-Insulin, SubCutaneous, QIDACHS, NOW, Start date 10/22/24 21:18:00 EDT NS 1000 mL Soln-IV 1,000 mL: 1,000 mL, IV, 20 mL/hr, Routine, Start date 10/25/24 11:37:00 EDT, 50 hour(s), Total volume (mL): 1,000, 71 kg, SEND PATIENT TO ENDOSCOPY WITH IV INFUSING, 1.79, m2 Paxil 20 mg Tab: 60 mg = 3 tab(s), Tab, Oral, Daily, Routine, Start date 10/23/24 9:00:00 EDT Valium 5 mg Tab: 2.5 mg = 0.5 tab(s), Tab, Oral, TID, Routine, Start date 10/23/24 8:00:00 EDT, 10/22/24 23:26:00 EDT Wellbutrin SR 150 mg Tab-ER: 150 mg = 1 tab(s), Tab-ER, Oral, BID, NOW, Start date 10/22/24 23:25:00 EDT, 10/22/24 23:25:00 EDT Zofran 4 mg/2 mL Injection: 4 mg = 2 mL, Injection, IV Push, q6hr PRN Nausea, Routine, Start date 10/22/24 21:01:00 EDT, 10/22/24 21:01:00 EDT acetaminophen 325 mg Tab: 650 mg = 2 tab(s), Tab, Oral, q6hr PRN Pain, Routine, Start date 10/22/24 21:01:00 EDT, 10/22/24 21:01:00 EDT atorvastatin 40 mg Tab: 40 mg = 1 tab(s), Tab, Oral, Daily, Routine, Start date 10/23/24 9:00:00 EDT, 10/22/24 23:25:00 EDT carvedilol 12.5 mg Tab: 12.5 mg = 1 tab(s), Tab, Oral, BID, NOW, Start date 10/22/24 23:25:00 EDT, 10/22/24 23:25:00 EDT gabapentin 300 mg Cap: 900 mg = 3 cap(s), Cap, Oral, TID, NOW, Start date 10/22/24 23:27:00 EDT, 10/22/24 23:27:00 EDT glucagon recombinant 1 mg Inj: 1 mg = 1 EA, Injection, IntraMuscular, q15min PRN Low blood sugar, Routine, Start date 10/22/24 21:01:00 EDT, Blood glucose <70 mg/dL, 10/22/24 21:01:00 EDT glucose Oral gel: 15 gm = 32 mL, Gel, Oral, q15min PRN Low blood sugar, Routine, Start date 10/22/24 21:01:00 EDT, Blood glucose <70 mg/dL, 10/22/24 21:01:00 EDT hydrALAZINE 20 mg/mL Inj: 10 mg = 0.5 mL, Injection, IV Push, q6hr PRN Other (see comment), Routine, Start date 10/22/24 21:01:00 EDT, 10/22/24 21:01:00 EDT insulin glargine 100 units/mL SubQ Jane 10 mL: 10 unit(s) = 0.1 mL, Injection-Insulin, SubCutaneous, Bedtime, Routine, Start date 10/23/24 21:00:00 EDT levothyroxine 112 mcg (0.112 mg) Tab: 112 mcg = 1 tab(s), Tab, Oral, Daily, Routine, Start date 10/23/24 6:30:00 EDT, 10/22/24 23:27:00 EDT lisinopril 10 mg Tab: 10 mg = 1 tab(s), Tab, Oral, Daily, Routine, Start date 10/23/24 9:00:00 EDT, 10/22/24 23:27:00 EDT oxyCODONE 5 mg Tab: 5 mg = 1 tab(s), Tab, Oral, q4hr PRN Pain for 5 day(s), Stop date 10/27/24 21:01:00 EDT, Routine, Start date 10/22/24 21:02:00 EDT, 10/22/24 21:02:00 EDT oxybutynin 5 mg ER Tab: 5 mg = 1 tab(s), Tab-ER, Oral, Daily, Routine, Start date 10/23/24 9:00:00 EDT, 10/22/24 23:28:00 EDT pantoprazole 40 mg IV Inj: 40 mg = 10 mL, Injection, IV Push, BID, Routine, Start date 10/23/24 9:00:00 EDT, mL/hr, Infuse over 2 minute(s) polyethylene glycol 3350 with electrolytes Oral Pwdr for Jane 4000 mL (GoLytely): 2,000 mL, Powder, Oral, q6hr, Stop date 10/26/24 3:00:00 EDT, Routine, Start date 10/25/24 16:00:00 EDT traZODONE 50 mg Tab: 100 mg = 2 tab(s), Tab, Oral, Once a day (at bedtime), NOW, Start date 10/22/24 23:28:00 EDT, 10/22/24 23:28:00 EDT Prescriptions Prescribed Assure Prism Multi Blood Glucose Monitoring System: Assure Prism Multi Blood Glucose Monitoring System, See Instructions, 1 kit(s), 2, To check blood glucose levels, [facility], Supply, 162.5, cm, 12/30/23 17:04:00 EDT, Height/Length Dosing, 79.1, kg, 12/30/23 17:04:00 EDT, Weight Dosing... Bentyl 10 mg Cap: 10 mg = 1 cap(s), Oral, QID, # 360 cap(s), Refills(s) 1, Pharmacy: [facility], 162, cm, 08/23/24 15:21:00 EDT, Height/Length Dosing, 73, kg, 08/23/24 15:21:00 EDT, Weight Dosing BuPROPion (Eqv-Wellbutrin SR) 150 mg/12 hours oral tab (more content not included)... [facility] Comment on above: Result Comment: Elec tronically Signed By: Donita BANKS, Marga Arboleda.br\Date and Time Signed: 10/25/24 11:40 EDT 10-25-2024 Note Progress Note-Nurse This nurse spoke with Brandie from [facility] to update her on the patient condition. This nurse informed Brandie that the patient is feeling better, patient will stay until 10/26/24, need an scope outpatient once the inflammation from the diverticulitis settles down and patient also has a urinary tract infection. Brandie thanked me for the information. [facility] 10-24-2024 Note Progress Note-Physic paulina Assessment/Plan PLAN; 1. GI bleed (K92.2: Gastrointestinal hemorrhage, unspecified) Acute blood loss anemia due to acute GI bleed from acute colitis/?hemorrhoids; Stool occult positive Hemoglobin did drop to 9.6 --but now up to 10.1 no acute bleeding/bloody stools now. CT abd/pelvis : diffuse colitis involving the left colon. shows small amt of hemorrhage from rectal area near anus. pt does have hemorrhoids. Consult GI --made aware by ED awaiting further input. IVF off today. Advance to full liquid diet today and as tolerated. PPI Ferrous 2. Acute colitis (K52.9: Noninfective gastroenteritis and colitis, unspecified) Stool studies pending See #1 Pt on anbx for UA. 3. Abnormal urinalysis (R82.90: Unspecified abnormal findings in urine) UA abnormal. Prelim urine culture showing GNR Follow for final urine culture Continue IV Ceftriaxone --has tolerated in the past several times. 4. Acute hypotension (I95.9: Hypotension, unspecified) Improved since admission. w/ fluid resuscitation Hydralazine for SBP >160 prn 5. Hyperlipidemia (E78.5: Hyperlipidemia, unspecified) Statin 6. HTN (hypertension) (I10: Essential (primary) hypertension) Coreg , Lisinopril 7. Hypothyroidism (E03.9: Hypothyroidism, unspecified) Levothyroxine 8. DM2 (diabetes mellitus, type 2) (E11.9: Type 2 diabetes mellitus without complications) AccuChecks AC/HS w/ ss insulin--controlled currently. Dulaglutide .75mg qweek. Lantus 15 units daily will add Glargine today 9. Chronic GERD (K21.9: Gastro-esophageal reflux disease without esophagitis) PPI 10. 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 11. Bipolar disorder (F31.9: Bipolar disorder, unspecified) bupropion, Valium , Paxil 12. 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 States she had mucous like stool s/some blood on admission but none since. States she is feeling better. No nausea or vomiting, fevers, chills, CP or SOB. UO appropriate. 1000ml out yesterday. Objective Vitals & Measurements T: 36.7 ???C(Oral) TMIN: 36.5 ???C(Oral) TMAX: 36.8 ???C(Oral) HR: 59(Monitored) RR: 16 BP: 160/76 SpO2: 96% WT: 77.1 kg Intake & Output This visit (24 hour periods starting at 07:00 EDT) 10/24/24 * 10/23/24 10/22/24 Total Summary Intake mL 12 1,587.57 2,011 Output mL -- 1,000 -- Fluid Balance 12 587.57 2,011 Intake (6) Sodium Chloride 0.9% mL -- -- 2,000 Sodium Chloride 0.9% intravenous solution 1,000 mL mL -- 1,517.57 -- Sodium Chloride 0.9%, ceftriaxone mL -- 50 -- fentanyl mL -- -- 1 ondansetron mL 2 -- -- pantoprazole mL 10 20 10 Total 12 1,587.57 2,011 Output (1) Urine Voided mL -- 1,000 -- Total -- 1,000 -- Counts (1) Stool Count -- 1 3 * This column has not completed the indicated time period. Physical Exam General: Alert and oriented, No acute distress. Eye: Pupils are equal, round and reactive to light. HENT: Normocephalic, Normal hearing, No pharyngeal erythema. Neck: Supple, Non-tender, No lymphadenopathy. Respiratory: Lungs are clear to auscultation, Respirations are non-labored, Breath sounds are equal, Symmetrical chest wall expansion. Cardiovascular: Normal rate, Regular rhythm, Good pulses equal in all extremities, Normal peripheral perfusion, No edema. Gastrointestinal: Soft, slightly tender to LLQ, Non-distended, Normal bowel sounds. Musculoskeletal Normal range of motion. Normal strength. Integumentary: Warm, Dry, Intact. Neurologic: Alert, Oriented, No focal deficits. Psychiatric: Cooperative, Appropriate mood & affect, Normal judgment. Lab Results WBC: 5.5 E9/L (10/24/24 04:44:00) RBC: 3.1 E12/L Low (10/24/24 04:44:00) HGB: 10.1 gm/dL Low (10/24/24 04:44:00) Hct: 29.1 % Low (10/24/24 04:44:00) MCV: 93.1 fL (10/24/24 04:44:00) MCH: 32.3 pg (10/24/24 04:44:00) MCHC: 34.7 gm/dL (10/24/24 04:44:00) RDW: 13.4 % (10/24/24 04:44:00) Platelet: 117 E9/L Low (10/24/24 04:44:00) MPV: 8.5 fL (10/24/24 04:44:00) Neutro Auto: 60.7 % (10/24/24 04:44:00) Lymph Auto: 21.6 % (10/24/24 04:44:00) Elmore Auto: 13.8 % (10/24/24 04:44:00) Eos Auto: 3.7 % (10/24/24 04:44:00) Basophil Auto: 0.2 % (10/24/24 04:44:00) Neutro Absolute: 3.3 E9/L (10/24/24 04:44:00) Lymph Absolute: 1.2 E9/L (10/24/24 04:44:00) Elmore Absolute: 0.8 E9/L (10/24/24 04:44:00) Eos Absolute: 0.2 E9/L (10/24/24 04:44:00) Basophil Absolute: 0 E9/L (10/24/24 04:44:00) Glucose Lvl: 112 mg/dL (10/24/24 04:44:00) BUN: 5 mg/dL (10/24/24 04:44:00) Creatinine: 0.6 mg/dL (10/24/24 04:44:00) eGFR: 96 mL/min/1.73 m2 (10/24/24 04:44:00) BUN/Creat Ratio: 8 Low (10/24/24 04:44:00) Sodium Lvl: 143 mmol/L (10/24/24 04:44:00) Po (more content not included)... [facility] Comment on above: Result Comment: Elec tronically Signed By: Anu MANZANO\.br\Date and Time Signed: 10/24/24 12:07 EDT\.br\Electronically Co-Signed By: Ashok Souza III, DO.br\Date and Time Co-Signed: 10/24/24 14:25 EDT 10-23-2024 Note Progress Note-Physic paulina Assessment/Plan PLAN; 1. GI bleed (K92.2: Gastrointestinal hemorrhage, unspecified) Hemoglobin continue to drop was 13.5 on admit then 10.8 and now 9.6 --consider some dilutional drop. Trend H&H q6 Consult GI --made aware by ED. IVF PPI Clear liquid diet Stool occult positive Ferrous 2. Acute colitis (K52.9: Noninfective gastroenteritis and colitis, unspecified) Stool studies pending See #1 Start antbx if stool studies or s/sx of infection. 3. Abnormal urinalysis (R82.90: Unspecified abnormal findings in urine) UA abnormal. Trend for final urine culture Start IV Ceftriaxone --has tolerated in the past several times. Urine culture pending 4. Acute hypotension (I95.9: Hypotension, unspecified) Currently normotensive. Fluid resuscitated. Hydralazine for SBP >160 prn 5. Hyperlipidemia (E78.5: Hyperlipidemia, unspecified) Statin 6. HTN (hypertension) (I10: Essential (primary) hypertension) Coreg , Lisinopril 7. Hypothyroidism (E03.9: Hypothyroidism, unspecified) Levothyroxine 8. DM2 (diabetes mellitus, type 2) (E11.9: Type 2 diabetes mellitus without complications) AccuChecks AC/HS w/ ss insulin Dulaglutide .75mg qweek. Lantus 15 units daily will add Glargine today 9. Chronic GERD (K21.9: Gastro-esophageal reflux disease without esophagitis) PPI 10. Chronic prescription opiate use (Z79.891: FPC (current) use of opiate analgesic) oxycodone prn. 11. Bipolar disorder (F31.9: Bipolar disorder, unspecified) bupropion, Valium , Paxil 12. 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 Complains of LLQ pain still. States she has no further episodes of bloody stools. States she is weak but is feeling better. Denies CP, SOB, N/V. Objective Vitals & Measurements T: 36.7 ???C(Oral) TMIN: 35.9 ???C(Tympanic) TMAX: 37.8 ???C(Oral) HR: 69(Monitored) RR: 18 BP: 117/66 SpO2: 94% HT: 162.56 cm WT: 77.2 kg Intake & Output This visit (24 hour periods starting at 07:00 EDT) 10/23/24 * 10/22/24 10/21/24 Total Summary Intake mL 10 2,011 -- Output mL 600 -- -- Fluid Balance -590 2,011 -- Intake (3) Sodium Chloride 0.9% mL -- 2,000 -- fentanyl mL -- 1 -- pantoprazole mL 10 10 -- Total 10 2,011 -- Output (1) Urine Voided mL 600 -- -- Total 600 -- -- Counts (1) Stool Count -- 3 -- * This column has not completed the indicated time period. Physical Exam General: Alert and oriented, No acute distress. Eye: Pupils are equal, round and reactive to light. HENT: Normocephalic, Normal hearing, No pharyngeal erythema. Neck: Supple, Non-tender, No lymphadenopathy. Respiratory: Lungs are clear to auscultation, Respirations are non-labored, Breath sounds are equal, Symmetrical chest wall expansion. Cardiovascular: Normal rate, Regular rhythm, Good pulses equal in all extremities, Normal peripheral perfusion, No edema. Gastrointestinal: Soft, Non-tender, Non-distended, Normal bowel sounds. Musculoskeletal Normal range of motion. Normal strength. Integumentary: Warm, Dry, Intact. Neurologic: Alert, Oriented, No focal deficits. Psychiatric: Cooperative, Appropriate mood & affect, Normal judgment. Lab Results WBC: 9.3 E9/L (10/23/24 05:51:00) RBC: 3.4 E12/L Low (10/23/24 05:51:00) HGB: 9.6 gm/dL Low (10/23/24 11:01:00) Hct: 28.6 % Low (10/23/24 11:01:00) MCV: 92.6 fL (10/23/24 05:51:00) MCH: 31.3 pg (10/23/24 05:51:00) MCHC: 33.8 gm/dL (10/23/24 05:51:00) RDW: 13.4 % (10/23/24 05:51:00) Platelet: 142 E9/L Low (10/23/24 05:51:00) MPV: 8.5 fL (10/23/24 05:51:00) Neutro Auto: 85.5 % High (10/22/24 14:53:00) Lymph Auto: 7.2 % Low (10/22/24 14:53:00) Elmore Auto: 6 % (10/22/24 14:53:00) Eos Auto: 1 % (10/22/24 14:53:00) Basophil Auto: 0.3 % (10/22/24 14:53:00) Neutro Absolute: 12.4 E9/L High (10/22/24 14:53:00) Lymph Absolute: 1 E9/L (10/22/24 14:53:00) Elmore Absolute: 0.9 E9/L (10/22/24 14:53:00) Eos Absolute: 0.1 E9/L (10/22/24 14:53:00) Basophil Absolute: 0 E9/L (10/22/24 14:53:00) RBC Morph: NORMAL (10/23/24 05:51:00) PT: 11.9 second(s) (10/22/24 14:53:00) INR: 1.06 (10/22/24 14:53:00) PTT: 30.1 second(s) (10/22/24 14:53:00) Glucose Lvl: 272 mg/dL High (10/22/24 15:13:00) BUN: 16 mg/dL (10/22/24 15:13:00) Creatinine: 1 mg/dL (10/22/24 15:13:00) eGFR: 61 mL/min/1.73 m2 (10/22/24 15:13:00) BUN/Creat Ratio: 16 (10/22/24 15:13:00) Sodium Lvl: 137 mmol/L (10/22/24 15:13:00) Potassium Lvl: 4.5 mmol/L (10/22/24 15:13:00) Chloride: 108 mmol/L (10/22/24 15:13:00) CO2: 26 mmol/L (10/22/24 15:13:00) AGAP: 8 mEq/L (10/22/ (more content not included)... [facility] Comment on above: Result Comment: Elec tronically Signed By: Anu MANZANO\.br\Date and Time Signed: 10/23/24 13:42 EDT\.br\Electronically Co-Signed By: Ashok Souza III, DO\.br\Date and Time Co-Signed: 10/23/24 19:04 EDT 10-22-2024 Note History and Physical Basic Information Admit Date/Time:10/22/2024 20:02 Chief Complaint pt c/o abd pain and diarrhea that started today. pt was found to be hypotensive. History of Present Illness Patient is a 69-year-old female with past medical history as noted below comes in with above-stated chief complaint. Patient states that about 1 week ago she had a 1 or 2 days of hematochezia/melena. She had some abdominal pain with this. States that symptoms were self-limited and subsided on their own. Then on day of admission patient did not have much appetite during the day. After eating some food patient had significant abdominal pain/cramping and then began to have hematochezia, diarrhea and fecal incontinence. Patient says that he is also been very weak today and had to lower herself to the ground. Patient denies any head trauma or loss of consciousness. Patient denies any associated chest pain, shortness of breath, dysuria. Patient denies any recent fevers, chills, headaches, vision changes. At time of my exam patient still has mild abdominal pain but otherwise feels better. Review of Systems 14 Systems reviewed and negative except as noted in HPI. Scoring Herbert Fall Risk Score: 35 (10/22/24) Physical Exam Vitals & Measurements T: 35.9 ???C(Tympanic) HR: 90(Monitored) RR: 14 BP: 127/65 SpO2: 93% HT: 162 cm WT: 71 kg General: alert, no acute distress Skin: warm, dry Head: no trauma, normocephalic Neck: Trachea midline, no adenopathy, no tenderness Eye: normal conjunctiva, sclera clear ENMT: oral mucosa moist, no pharyngeal erythema or exudate. hearing grossly intact Cardiovascular: regular rate and rhythm, no murmur/gallop/rub Respiratory: Lungs CTA, respirations non labored , no w/r/r Gastrointestinal: Abdomen bowel sound, soft, non distended, mild pain to palpation generalized, no rebound, no guarding. Extremities: no deformity, no trauma Osteopathic: Deferred due to being noncontributory to current case. Neurological: oriented x 4, LOC appropriate for age, CN II-XII intact, motor strength equal & normal bilaterally, sensation equal & normal bilaterally, speech normal Psychiatric: cooperative, affect appropriate for age, normal judgement, normal psychiatric thoughts. Lab Results WBC: 14.4 E9/L High (10/22/24 14:53:00) RBC: 4.5 E12/L (10/22/24 14:53:00) HGB: 13.5 gm/dL (10/22/24 14:53:00) Hct: 41.5 % (10/22/24 14:53:00) MCV: 93 fL (10/22/24 14:53:00) MCH: 30.1 pg (10/22/24 14:53:00) MCHC: 32.4 gm/dL (10/22/24 14:53:00) RDW: 13.5 % (10/22/24 14:53:00) Platelet: 241 E9/L (10/22/24 14:53:00) MPV: 8.7 fL (10/22/24 14:53:00) Neutro Auto: 85.5 % High (10/22/24 14:53:00) Lymph Auto: 7.2 % Low (10/22/24 14:53:00) Elmore Auto: 6 % (10/22/24 14:53:00) Eos Auto: 1 % (10/22/24 14:53:00) Basophil Auto: 0.3 % (10/22/24 14:53:00) Neutro Absolute: 12.4 E9/L High (10/22/24 14:53:00) Lymph Absolute: 1 E9/L (10/22/24 14:53:00) Elmore Absolute: 0.9 E9/L (10/22/24 14:53:00) Eos Absolute: 0.1 E9/L (10/22/24 14:53:00) Basophil Absolute: 0 E9/L (10/22/24 14:53:00) PT: 11.9 second(s) (10/22/24 14:53:00) INR: 1.06 (10/22/24 14:53:00) PTT: 30.1 second(s) (10/22/24 14:53:00) Glucose Lvl: 272 mg/dL High (10/22/24 15:13:00) BUN: 16 mg/dL (10/22/24 15:13:00) Creatinine: 1 mg/dL (10/22/24 15:13:00) eGFR: 61 mL/min/1.73 m2 (10/22/24 15:13:00) BUN/Creat Ratio: 16 (10/22/24 15:13:00) Sodium Lvl: 137 mmol/L (10/22/24 15:13:00) Potassium Lvl: 4.5 mmol/L (10/22/24 15:13:00) Chloride: 108 mmol/L (10/22/24 15:13:00) CO2: 26 mmol/L (10/22/24 15:13:00) AGAP: 8 mEq/L (10/22/24 15:13:00) Calcium Lvl: 8 mg/dL Low (10/22/24 15:13:00) Alk Phos: 73 Int._Unit/L (10/22/24 15:13:00) ALT: 8 Int._Unit/L (10/22/24 15:13:00) AST: 14 Int._Unit/L (10/22/24 15:13:00) Total Protein: 6 gm/dL (10/22/24 15:13:00) Albumin Lvl: 3.2 gm/dL Low (10/22/24 15:13:00) Globulin: 2.8 gm/dL (10/22/24 15:13:00) A/G Ratio: 1.1 (10/22/24 15:13:00) Bili Total: 0.6 mg/dL (10/22/24 15:13:00) Bili Direct: 0.2 mg/dL (10/22/24 15:13:00) Bili Indirect: 0.4 mg/dL (10/22/24 15:13:00) Lipase Lvl: 39 unit/L (10/22/24 15:13:00) Lactic Acid Lvl: 1.9 mmol/L (10/22/24 15:13:00) Troponin HS: 7.4 pg/mL Low (10/22/24 16:05:00) Glucose Cap: 190 mg/dL High (10/22/24 19:38:00) POC Device SN: [id number] (10/22/24 19:38:00) POC User ID: [id number] (10/22/24 19:38:00) POC Username: ADINA FRYE (10/22/24 19:38:00) Occult Bld Stl: Positive1 Abnormal (10/22/24 14:48:00) Assessment/Plan 1. GI bleed (K92.2: Gastrointestinal hemorrhage, unspecified) Gastroenterology was consulted in the emergency department. They recommended supportive care for time being. Will check stool for possible infective cause of colitis/bleeding. Will empirically start patient on IV PPI. Will check hemoglobin with morning labs. Will place on clear liquid diet for time being. 2. Acute colitis (K52.9: Noninfective gastroenteritis and colitis, unspecified) Supportive care. On (more content not included)... [facility] Comment on above: Result Comment: Elec tronically Signed By: Sanaz ALEJANDRA DO.deng\Date and Time Signed: 10/22/24 21:12 EDT 08-23-2024 Hospital Discharge instructions Patient Education 08/23/2024 18:02:16 Abrasion Abrasion An abrasion is a cut or a scrape on the surface of the skin. An abrasion does not go through all the layers of the skin. It is important to care for an abrasion properly to prevent infection. What are the causes? This condition is caused by rubbing your skin on something or falling on a surface, such as the ground. When your skin rubs on something, some layers of skin may rub off. What are the signs or symptoms? The main symptom of this condition is a cut or a scrape. The cut or scrape may be bleeding, or it may appear red or pink. If your abrasion was caused by a fall, there may be a bruise under your cut or scrape. How is this diagnosed? An abrasion is diagnosed with a physical exam. How is this treated? Treatment for this condition depends on how large and deep the abrasion is. In most cases: Your abrasion will be cleaned with water and mild soap. This is done to remove any dirt or debris (such as tiny bits of glass or rock) that may be stuck in your wound. An antibiotic ointment may be applied to your abrasion to help prevent infection. A bandage (dressing) may be placed on your abrasion to keep it clean. You may also need a tetanus shot. Follow these instructions at home: Medicines Take or apply yset-kzg-zklbiaj and prescription medicines only as told by your health care provider. If you were prescribed an antibiotic medicine, use it as told by your health care provider. Do not stop using the antibiotic even if you start to feel better. Wound care Clean your wound 1 or 2 times a day, or as told by your health care provider. To do this: 1.Wash your hands for at least 20 seconds with mild soap and water. Do this before and after you clean your wound. 2.Wash your wound with mild soap and water and then rinse off the soap. 3.Pat your wound dry with a clean towel. Do not rub your wound. Keep your dressing clean and dry as told by your health care provider. There are many different ways to close and cover a wound. Follow instructions from your health care provider about caring for your wound and about changing and removing your dressing. You may have to change your dressing one or more times a day, or as directed by your health care provider. Check your wound every day for signs of infection. Check for: ?Redness, especially a red streak that spreads out from your wound. ?Swelling or increased pain. ?Warmth. ?Blood, fluid, pus, or a bad smell. Managing pain and swelling If directed, put ice on the injured area. To [...] greater risk of damage to the area. If possible, raise (elevate) the injured area above the level of your heart while you are sitting or lying down. General instructions Do not take baths, swim, or use a hot tub until your health care provider approves. Ask your doctor about taking showers or sponge baths. Keep all follow-up visits. This is important. Contact a health care provider if: You received a tetanus shot, and you have swelling, severe pain, redness, or bleeding at your injection site. Your pain is not controlled with medicine. You have a fever. You have any of these signs of infection: ?Redness, swelling, or more pain around your wound. ?Warmth coming from your wound. ?Blood, fluid, pus, or a bad smell coming from your wound. Get help right away if: You have a red streak spreading away from your wound. Summary An abrasion is a cut or a scrape on the surface of the skin. Care for your abrasion properly to prevent infection. Clean your wound with mild soap and water 1 or 2 times a day or as often as told. Follow instructions from your health care provider about taking medicines and changing your bandage (dressing). Contact your health care provider if you have a fever or if you have redness, swelling, or more pain around your wound. Contact your health care provider if you have warmth, blood, fluid, pus, or a bad smell coming from your wound. Get help right away if there is a red streak spreading away from your wound. This information is not intended to replace advice given to you by your health care provider. Make sure you discuss any questions you have with your health care provider. Document Revised: 06/15/2020 Document Reviewed: 06/15/2020 [employer] Patient Education 2023 [email or web address] 08/23/2024 18:02:16 Facial or Scalp Contusion Facial or Scalp Contusion A facial or scalp contusion is a bruise (contusion) on the face or head. Contusions are the result of a direct force (blunttrauma) to the face or scalp that has caused bleeding under the skin. The contusion may turn blue, purple, or yellow (discoloration). Minor injuries may cause a painless contusion, but more severe contusions may stay painful and swollen for a few weeks. Injuries to the face and head generally cause a lot of swelling and discoloration, especially around the eyes. Contusions by themselves are generally not life threatening. You may have a contusion along with other injuries, such as broken bones (fractures), cuts, and injuries to blood vessels. What are the causes? A facial or scalp contusion is caused by a injury, fall, or trauma to the face or head area. Contusions may result from: Motor vehicle accidents. Sports injuries. Assault injuries. What are the signs or symptoms? Symptoms of this condition include: Swelling of the injured area. The swelling may be in a small area (localized) and very noticeable. Discoloration of the injured area. Tenderness, soreness, or pain in the injured area. In addition to symptoms of contusions, if you have facial fractures, you may have a change in the appearance of your nose, may not be able to close your mouth, and may have vision changes. How is this diagnosed? This condition is diagnosed based on your medical history and a physical exam. An X-ray exam, CT scan, or MRI may be needed to check for any additional injuries. In some cases, your health care provider may need to do more examinations of your nose, eyes, or jaw. How is this treated? Often, the best treatment for a facial or scalp contusion is applying cold compresses to the injured area. Gtre-gnw-rnjjazf medicines may also be recommended to help relieve pain. If there are any cuts (lacerations), these will need to be repaired as well. Any deeper injuries may require treatment and follow up with a specialist, such as a facial surgeon or an collections specialist (tableman). Follow these instructions at home: Managing pain, stiffness, and swelling If directed, put ice on the injured area. To [...] damage to the area. Raise (elevate) the injured area above the level of your heart while you are sitting or lying down. General instructions Take soyc-uon-slidguj and prescription medicines only as told by your health care provider. Rest as told by your health care provider. Return to your normal activities as told by your health care provider. Ask your health care provider what activities are safe for you. Do not blow your nose if you have any facial fractures. Eat soft foods if you are having jaw pain. Keep all follow-up visits. This is important. Contact a health care provider if: You have trouble biting or chewing. Your pain or swelling gets worse. The discolored area gets much worse. Get help right away if: You have severe pain or a headache that is not relieved by medicine. You have unusual sleepiness, confusion, or personality changes. You vomit. You have a nosebleed that does not stop. You have double vision or blurred vision. You have clear fluid draining from your nose or ear, and it does not go away. You have trouble walking or using your arms or legs. You have severe dizziness. Summary A facial or scalp contusion is a bruise (contusion) on the face or head. Contusions are the result of an injury that caused bleeding and swelling under the skin. Minor contusions will have mild symptoms, but more severe contusions may stay painful and swollen for a few weeks. Some facial and head contusions may be associated with other more serious injuries. Go to a health care provider if you have vision changes, bleeding from your face or nose, or you are not able to to bite down normally. Often, the best treatment for a facial or scalp contusion is applying cold compresses to the injured area. This information is not intended to replace advice given to you by your health care provider. Make sure you discuss any questions you have with your health care provider. Document Revised: 04/23/2021 Document Reviewed: 04/23/2021 [employer] Patient Education 2023 [email or web address] 08/23/2024 18:02:16 Head Injury, Adult Head Injury, Adult There [...] department or urgent care, or you may have to stay in the hospital. What are the causes? There are many causes of a head injury. Serious head injuries may be caused by car crashes, bicycle or motorcycle crashes, sports injuries, falls, or being struck by an object. What are the symptoms? Symptoms of a head injury include a contusion, bump, or bleeding at the site of the injury. Other physical symptoms may include: Headache. Nausea or vomiting. Dizziness. Blurred or double vision. Sensitivity to bright lights or loud noises. Feeling tired. Trouble waking up. Severe symptoms such as: ?Weakness or numbness on one side of the body. ?Slurred speech or swallowing problems. ?Loss of consciousness. ?Seizures. Mental symptoms may include: Irritability. Confusion and memory problems. Poor attention and concentration. Changes in eating or sleeping habits. Anxiety or depression. How is this diagnosed? This condition is diagnosed based on your symptoms and a physical exam. You may also [...] head injury, treatment may include: Close observation. You may have to stay in the hospital and have: ?Frequent physical exams. ?Frequent checks of how your brain and nervous system are working. ?Your blood pressure and oxygen levels checked. Medicines to relieve pain, prevent seizures, and decrease brain swelling. Airway protection and breathing support. This may include using a ventilator. Monitoring and managing swelling inside the brain. Brain surgery. Surgery may include: ?Removing a collection of blood or blood clots. ?Stopping the bleeding. ?Removing a part of the skull to make room for the brain to swell. Follow these instructions at home: Activity Rest. Avoid activities that are hard or tiring. Make sure you get enough sleep. Let your brain rest by limiting activities that take a lot of thought or attention, such as: ?Watching TV. ?Playing memory games and doing puzzles. ?Job-related work or homework. ?Working on the computer, using social media, and texting. Avoid activities that could cause another head injury, such as playing sports, until your health care provider approves. Ask your provider when it is safe for you to return to your regular activities, such as work or school. Ask your provider when you can drive, ride a bicycle, or use machinery. Your ability to react may be slower after a brain injury. Do not do these activities if you are dizzy. Lifestyle Do not drink alcohol until your provider approves. Do not use drugs. Alcohol and certain drugs may slow your recovery and can put you at risk of further injury. If it is hard to remember things, write them down. If you are easily distracted, try to do one thing at a time. Talk with family members or close friends when making important decisions. Tell your friends, family, a trusted colleague, and prop worker about your injury, symptoms, and restrictions. Ask them to watch for any problems that are new or get worse. General instructions Take itte-ecn-mwgkcsz and prescription medicines only as told by your provider. Have a responsible adult stay with you for 24 hours after your head injury. They should watch you for any changes in your symptoms and be ready to get help right away. Keep all follow-up visits to make sure your needs are being met and catch any new problems early. How is this prevented? Avoiding another brain injury is very important. In rare cases, another injury can lead to permanent brain damage, brain swelling, or . The risk of this is greatest during the first 7 10 days after a head injury. To avoid injuries: Improve your balance and strength to avoid falls. Wear a seat belt when you are in a moving vehicle. Wear a helmet when riding a bicycle, skiing, or doing any other sport that has a risk of injury. Take safety measures in your home to prevent falls, such as: ?Removing clutter and tripping hazards. ?Using grab bars in bathrooms and handrails by stairs. ?Placing non-slip mats on floors and in bathtubs. ?Improving lighting in dim areas. Where to find more information Brain Injury Association: biausa.org Contact a health care provider if: You have headaches that do not go away. You have dizziness that does not go away. You have double vision or vision changes that do not go away. You have difficulty sleeping. You have changes in your mood. You have new symptoms. Get help right away if: You have sudden: ?Severe headache. ?Severe vomiting. ?Unequal pupil size. One is bigger than the other. ?Vision problems. ?Confusion or irritability. You have a seizure. Your symptoms get worse. You have clear or bloody fluid coming from your nose or ears. These symptoms may be an emergency. Get help right away. Call 911. Do not wait to see if the symptoms will go away. Do not drive yourself to the hospital. This information is not intended to replace advice given to you by your health care provider. Make sure you discuss any questions you have with your health care provider. Document Revised: 01/02/2023 Document Reviewed: 01/02/2023 [employer] Patient Education 2023 [email or web address] Follow Up Care 08/23/2024 15:16:39 With:Marcelo Link Address: [address] [place] [phone]- Business (1) When:08/26/2024 17:24:01 Comments:Return to the emergency room if your headache gets worse, vomiting or any new symptoms. [facility] 08-23-2024 Note ED Patient Education Note Dermatology Abrasion An abrasion is a cut or a scrape on the surface of the skin. An abrasion does not go through all the layers of the skin. It is important to care for an abrasion properly to prevent infection. What are the causes? This condition is caused by rubbing your skin on something or falling on a surface, such as the ground. When your skin rubs on something, some layers of skin may rub off. What are the signs or symptoms? The main symptom of this condition is a cut or a scrape. The cut or scrape may be bleeding, or it may appear red or pink. If your abrasion was caused by a fall, there may be a bruise under your cut or scrape. How is this diagnosed? An abrasion is diagnosed with a physical exam. How is this treated? Treatment for this condition depends on how large and deep the abrasion is. In most cases: ??? Your abrasion will be cleaned with water and mild soap. This is done to remove any dirt or debris (such as tiny bits of glass or rock) that may be stuck in your wound. ??? An antibiotic ointment may be applied to your abrasion to help prevent infection. ??? A bandage (dressing) may be placed on your abrasion to keep it clean. You may also need a tetanus shot. Follow these instructions at home: Medicines ??? Take or apply mihf-sid-xhtpbho and prescription medicines only as told by your health care provider. ??? If you were prescribed an antibiotic medicine, use it as told by your health care provider. Do not stop using the antibiotic even if you start to feel better. Wound care ??? Clean your wound 1 or 2 times a day, or as told by your health care provider. To do this: 1. Wash your hands for at least 20 seconds with mild soap and water. Do this before and after you clean your wound. 2. Wash your wound with mild soap and water and then rinse off the soap. 3. Pat your wound dry with a clean towel. Do not rub your wound. ??? Keep your dressing clean and dry as told by your health care provider. ??? There are many different ways to close and cover a wound. Follow instructions from your health care provider about caring for your wound and about changing and removing your dressing. You may have to change your dressing one or more times a day, or as directed by your health care provider. ??? Check your wound every day for signs of infection. Check for: ? Redness, especially a red streak that spreads out from your wound. ? Swelling or increased pain. ? Warmth. ? Blood, fluid, pus, or a bad smell. Managing pain and swelling ??? If directed, put ice on the injured area. To do this: ? Put ice in a plastic bag. ? Place a towel between your skin and the bag. ? Leave the ice on for 20 minutes, 2?3 times a day. ? Remove the ice if your skin turns bright red. This is very important. If you cannot feel pain, heat, or cold, you have a greater risk of damage to the area. ??? If possible, raise (elevate) the injured area above the level of your heart while you are sitting or lying down. General instructions ??? Do not take baths, swim, or use a hot tub until your health care provider approves. Ask your doctor about taking showers or sponge baths. ??? Keep all follow-up visits. This is important. Contact a health care provider if: ??? You received a tetanus shot, and you have swelling, severe pain, redness, or bleeding at your injection site. ??? Your pain is not controlled with medicine. ??? You have a fever. ??? You have any of these signs of infection: ? Redness, swelling, or more pain around your wound. ? Warmth coming from your wound. ? Blood, fluid, pus, or a bad smell coming from your wound. Get help right away if: ??? You have a red streak spreading away from your wound. Summary ??? An abrasion is a cut or a scrape on the surface of the skin. Care for your abrasion properly to prevent infection. ??? Clean your wound with mild soap and water 1 or 2 times a day or as often as told. Follow instructions from your health care provider about taking medicines and changing your bandage (dressing). ??? Contact your health care provider if you have a fever or if you have redness, swelling, or more pain around your wound. ??? Contact your health care provider if you have warmth, blood, fluid, pus, or a bad smell coming from your wound. ??? Get help right away if there is a red streak spreading away from your wound. This information is not intended to replace advice given to you by your health care provider. Make sure you discuss any questions you have with your health care provider. Document Revised: 06/15/2020 Document Reviewed: 06/15/2020 [employer]vier Patient Education ? 2023 [employer] Neurology Facial or Scalp Contusion A facial or scalp contusion is a bruise (contusion) on the face or head. Contusions are the result of a direct force (blunttrauma) to the face or scalp that has caused bleeding under the skin. The contusion may (more content not included)... [facility] 08-23-2024 Evaluation + Plan note Extrac salty from: Title:ED Note Author:Ismael Harrington, Earnest Biggs te:08/23/24 1. Closed head injury (S09.9 0XA: Unspecified injury of head, initial encounter) 2. Facial contusion (S00.83XA: Contusion of other part of head, initial encounter) 3. Skin abrasion (T14.8XXA: Other injury of unspecified body region, initial encounter) Orders: morphine, 4 mg = 1 mL, Injection, IV Push, Once, Stop date 08/23/24 17:22:00 EDT, STAT, Start date 08/23/24 17:22:00 EDT, 08/23/24 17:22:00 EDT morphine, 4 mg = 1 mL, Injection, IV Push, Once, Stop date 08/23/24 15:32:00 EDT, STAT, Start date 08/23/24 15:32:00 EDT, 08/23/24 15:32:[address] Head or Brain w/o Contrast CT Maxillofacial w/o Contrast CT Spine Cervical w/o Contrast XR Hip Bilat 2 Views + Pelvis XR Spine Lumbosacral Minimum 4 Views Future Appointments Appointment Date:09/21/2024 01:40:00 PM Scheduled Provider:Marcelo Call DO Location:[facility] Appointment Type: Open Appointment Date:11/11/2024 11:00:00 AM Scheduled Provider: Location:[facility] Appointment Type: Medicare Wellness Subsequent Future Scheduled Tests Laboratory* UA with [place] [facility] 12/26/23 [facility] 03-21-2025 Hospital Discharge instructions Follow Up Care 06/18/2024 14:02:23 With:Marcelo Call DO, [facility] Address: [address] [place] [address]- When:6 weeks Comments:6 WEEKS FOLLOWUP [facility] 01-28-2025 Hospital Discharge instructions Follow Up Care 04/27/2024 11:26:29 With:Marcelo Call DO, [facility] Address: [address] [place] [address]- When:4 weeks Comments:4 WEEKS FOLLOWUP [facility] 01-28-2025 NotePatient Education Gastroenterology Constipation, Adult Constipation is when a person has trouble pooping (having a bowel movement). When you have this condition, you may poop fewer than 3 times a week. Your poop (stool) may also be dry, hard, or bigger than normal. Follow these instructions at home: Eating and drinking ??? Eat foods that have a lot of fiber, such as: ? Fresh fruits and vegetables. ? Whole grains. ? Beans. ??? Eat less of foods that are low in fiber and high in fat and sugar, such as: ? Congolese fries. ? Hamburgers. ? Cookies. ? Candy. ? Soda. ??? Drink enough fluid to keep your pee (urine) pale yellow. General instructions ??? Exercise regularly or as told by your doctor. Try to do 150 minutes of exercise each week. ??? Go to the restroom when you feel like you need to poop. Do not hold it in. ??? Take hajs-mxv-wnhuirc and prescription medicines only as told by your doctor. These include anyfiber supplements. ??? When you poop: ? Do deep breathing while relaxing your lower belly (abdomen). ? Relax your pelvic floor. The pelvic floor is a group of muscles that support the rectum, bladder,and intestines (as well as the uterus in women). ??? Watch your condition for any changes. Tell your doctor if you notice any. ??? Keep all follow-up visits as told by your doctor. This is important. Contact a doctor if: ??? You have pain that gets worse. ??? You have a fever. ??? You have not pooped for 4 days. ??? You vomit. ??? You are not hungry. ??? You lose weight. ??? You are bleeding from the opening of the butt (anus). ??? You have thin, pencil-like poop. Get help right away if: ??? You have a fever, and your symptoms suddenly get worse. ??? You leak poop or have blood in your poop. ??? Your belly feels hard or bigger than normal (bloated). ??? You have very bad belly pain. ??? You feel dizzy or you faint. Summary ??? Constipation is when a person poops fewer than 3 times a week, has trouble pooping, or has poopthat is dry, hard, or bigger than normal. ??? Eat foods that have a lot of fiber. ??? Drink enough fluid to keep your pee (urine) pale yellow. ??? Take hzku-sfy-vwuovzj and prescription medicines only as told by your doctor. These include anyfiber supplements. This information is not intended to replace advice given to you by your health care provider. Make sure you discuss any questions you have with your health care provider. Document Revised: 01/29/2023 Document Reviewed: 01/29/2023 Snipd Patient Education ? 2023 Soup.io.[facility] 12-29-2023 Hospital Discharge instructions Follow Up Care 12/29/2023 15:38:55 With:Link Marcelo DUVALL FAM Address: [address] [place] [address]- When:4 weeks Comments:4 WEEKS FOLLOWUP [facility] [place] 08-30-2024 Hospital Discharge instructions Patient Education 11/28/2023 15:51:18 Preventive Care [...] to a schedule. Your health care provider willrecommend vaccines for you based on your age, medical history, and lifestyle or other factors, suchas travel or where you work. What tests [...] vegetables, whole grains, lean protein, and low-fat dairyproducts. Limit your intake of foods with high [...] glass of hard liquor (44 mL). Lifestyle [place] your teeth every morning and night with fluoride toothpaste. Floss one time each day. Exercise for at least 30 minutes 5 or more days each week. Do not use any products that contain nicotine or tobacco. These products include cigarettes, chewing tobacco, and vaping devices, such as e-cigarettes. If you need help quitting, ask your health careprovider. Do not use drugs. If you are sexually active, practice safe sex. Use a condom or other form of protection in order toprevent STIs. Take aspirin only as told by [...] provider. Document Revised: 09/12/2021 Document Reviewed: 09/12/2021 Snipd Patient Education 2023 Soup.io. 11/28/2023 15:51:16 Preventing Health Risks of Being [...] or do activities you enjoy. Being overweight alsoputs stress on your heart and lungs and [...] other factors that may make you more likelyto be overweight include: Having a family history of obesity. Living in an area with limited access to: ?[place], recreation centers, or sidewalks. ?Healthy food choices, such as grocery stores and farmers' markets. What actions can I take to [...] body needs on a regular basis can causeyou to become overweight or obese. Eat slowly, [...] gain, or as often as recommended by yourhealth care provider. Do moderate-intensity exercise, such as [...] provider. Document Revised: 10/12/2021 Document Reviewed: 10/12/2021 Snipd Patient Education 2023 Soup.io. 11/28/2023 15:51:12 Diabetes Mellitus and Exercise Diabetes [...] an expert trained in diabetes care (certified drug counselor) can help you make an activity plan. This plan can help you find the type of exercise that works for you. It may also tell you how often to exercise and for how long. Be sure to: Get at least 150 minutes of medium-intensity or high-intensity exercise each week. This may involvebrisk walking, biking, or water aerobics. Do stretching [...] up during and after exercise. Know the symptomsof this condition and how to treat it. Follow these instructions at home: Keep a carbohydrate snack on hand for use before, during, and after exercise. This can help preventor treat hypoglycemia. Avoid injecting insulin into parts of your body that are going to be used during exercise. This mayinclude: ?Your arms, when you are going to [...] (heat stroke). Where to find more information [place] Diabetes Association: diabetes.org Association of Diabetes Care & Education Specialists: diabeteseducator.org This information is not intended to replace advice given to you by your health care provider. Make sure you discuss any questions you have with your health care provider. Document Revised: 09/04/2022 Document Reviewed: 09/04/2022 Snipd Patient Education 2023 Soup.io. 11/28/2023 15:51:12 Diabetes Mellitus and Foot Care Diabetes Mellitus and Foot Care Diabetes, also called diabetes mellitus, may cause problems with your feet and legs because of poorblood flow (circulation). Poor circulation may make your skin: Become thinner and primer expeditor and drier. Break more easily. Heal more slowly. [...] right away. Where to find more information [place] Diabetes Association: diabetes.org Association of Diabetes Care [...] provider. Document Revised: 09/18/2022 Document Reviewed: 09/18/2022 Snipd Patient Education 2023 Soup.io. 11/28/2023 15:51:11 DASH Eating Plan DASH Eating [...] that are raw, steamed, roasted, or grilled. Low- sodium or reduced-sodiumtomato and vegetable juice. Low-sodium or reduced-sodium tomato sauce and tomato paste. Low-sodium or reduced-sodium canned vegetables. Grains Whole-grain or whole-wheat bread. Whole-grain or whole-wheat pasta. Brown rice. Oatmeal. Quinoa. Bulgur. Whole-grain and low-sodium cereals. Melba bread. Low- fat, low-sodium crackers. Whole-wheat flour tortillas. Meats and [...] milk. Reduced-fat, low-fat, or fat-free cheeses. Nonfat, low-sodiumricotta or cottage cheese. Low-fat or nonfat yogurt. [...] Dairy Whole or 2% milk, cream, and wfzz-mdq-eqii. Whole or full-fat cream cheese. Whole-fat or [...] sauce. Oyster sauce. Cocktail sauce. Store-bought horseradish. Ketchup.Mustard. Meat flavorings and tenderizers. Bouillon cubes. Hot sauces. Pre-made or packaged marinades. Pre-made or packaged taco seasonings. Relishes. Regular salad dressings. Other foods Salted popcorn and pretzels. The items listed above may not be all the foods and drinks you should avoid. Talk to a dietitian [place] more. Where to find more information National Heart, Lung, and Blood [place] (NHLBI): nhlbi.nih.gov [place] Heart Association (AHA): heart.org Academy of Nutrition and Dietetics: eatright.org National Kidney Foundation (NKF): kidney.org This information is not intended to replace advice given to you by your health care provider. Make sure you discuss any questions you have with your health care provider. Document Revised: 04/03/2023 Document Reviewed: 04/03/2023 Snipd Patient Education 2023 Soup.io. 11/28/2023 15:51:09 BMI for Adults BMI for [...] can help you reach a healthy weight. BMIscreening can be done again to see if these changes are working. How is BMI calculated? Your height and weight are measured. The BMI is found from those numbers. This can be done with U.S. or metric measurements. Note that charts and online BMI calculators are available to help you findyour BMI quickly and easily without doing these [...] Centers for Disease Control and Prevention: cdc.gov [place] Heart Association: heart.org National Heart, Lung, and Blood [place]: nhlbi.nih.gov This information is not intended to replace advice given to you by your health care provider. Make sure you discuss any questions you have with your health care provider. Document Revised: 12/05/2022 Document Reviewed: 11/28/2022 Snipd Patient Education 2023 Soup.io. 11/28/2023 15:50:18 BMI for Adults BMI for [...] can help you reach a healthy weight. BMIscreening can be done again to see if these changes are working. How is BMI calculated? Your height and weight are measured. The BMI is found from those numbers. This can be done with U.S. or metric measurements. Note that charts and online BMI calculators are available to help you findyour BMI quickly and easily without doing these [...] Centers for Disease Control and Prevention: cdc.gov [place] Heart Association: heart.org National Heart, Lung, and Blood [place]: nhlbi.nih.gov This information is not intended to replace advice given to you by your health care provider. Make sure you discuss any questions you have with your health care provider. Document Revised: 12/05/2022 Document Reviewed: 11/28/2022 Snipd Patient Education 2023 Soup.io. [facility] 08-30-2024 Hospital Discharge instructions Follow Up Care 11/28/2023 11:35:04 With:Marcelo Call DO [facility] Address: [address] [place] [address]- When:3 months Comments:3 MONTH DIABETIC CHECKUP [facility] 06-20-2024 Hospital Discharge instructions Follow Up Care 09/18/2023 15:15:09 With:Marcelo Call DO, [facility] Address: [address] [place] [address]- When:3 months Comments:3 MONTH DIABETIC CHECKUP [facility] 05-03-2024 Hospital Discharge instructions Follow Up Care 08/01/2023 10:01:14 With:Link Marcelo DUVALL, ISABELA Address: [address] [address]- When:6 weeks Comments:6 WEEKS FOLLOWUP [facility] 04-02-2024 Hospital Discharge instructions Patient Education 07/01/2023 13:40:35 Preventing Hypoglycemia Preventing Hypoglycemia Hypoglycemia occurs when the level of sugar (glucose) in the blood is too low. Hypoglycemia can happen in people who do or do not have diabetes (diabetes mellitus). It can develop quickly, and it canbe a medical emergency. For most people with [...] healthy meal plan that is right for you.Follow your meal plan carefully. Eat meals at [...] immediately eating or drinking something that contains sugarwith 15 grams of fast-acting carbohydrate, such as: [...] your health care provider about how much youshould take. Fast-acting options include: ?Glucose tablets (take [...] drink, you may need glucagon. A family memberor close friend should learn how to check your blood glucose and how to give you glucagon. Ask yourhealth care provider if you need to have an emergency glucagon kit available. Severe hypoglycemia may need to be treated in a hospital. The treatment may include getting glucosethrough an IV. You may also need treatment for the cause of your hypoglycemia. Where to find more information [place] Diabetes Association: www.diabetes.org National [place] of Diabetes and Digestive and Kidney Diseases: [...] hypoglycemia. Keep a fast-acting carbohydrate option available whenyou may be at risk for hypoglycemia. This information is not intended to replace advice given to you by your health care provider. Make sure you discuss any questions you have with your health care provider. Document Revised: 02/15/2021 Document Reviewed: 02/15/2021 Snipd Patient Education 2022 Soup.[email or web address]. Follow Up Care 06/27/2023 11:25:55 With:Marcelo Call DO [facility] Address: [address] [place] [address]- When:4 weeks Comments:4 WEEKS FOLLOWUP [facility] [place] 02-12-2024 Telephone encounter Note* Telephone Encounter - Sonia Rowe - 05/12/2023 10:28 AM EST Pts fci called to get a f/U appt scheduled from R Hip aspiration 04/11/23 @ [facility] [place]. Does thispatient need one? If so how when would you like me to schedule this appt? 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 Does thispatient need one? If so how when would you like me to schedule this appt? Yolie [phone] (forest botany instructor) documented in this encounterUniversity [id number] Evaluation note* Encounter Date Diagnosis Assessment Notes Treatment Notes Treatment Clinical Notes Feb, Presence of unspecified artificial hip [...] of diseases classified elsewhere (ICD-10 - B96.89) [employer] Other [id number] Evaluation + Plan noteExtracted from: Title:ANES Post-operative Note - General Author: Can Kaplan Jr., DO Date:02/13/23 Plan Transfer/Discharge: Transfer/Discharge Discharge when meets criteria ( From PACU to Ambulatory Surgery Unit, and To home ). Extracted from: Title:ANES Pre-operative Note - Adult Author:Can Chapa Jr., DO Date:02/13/23 Plan [place] Society of Anesthesiologists (ASA) physical status classification: Class III. Anesthetic Preoperative Plan: Anesthesia General. Future Scheduled Tests Radiology* NM Gastric Emptying Study 04/10/22 [facility]11-16-2023 Hospital Discharge instructions Patient Education 02/13/2023 08:20:41 Post Op Patient Instructions - FT (Custom) (CUSTOM) 02/13/2023 07:23:07 Henri Rice - Hip Injection with Anesthesia (Custom) [place], [place] [facility] HIP INJECTION WITH ANESTHESIA [...] persistent vomiting. Joaquim Rice DO [facility] [address] [place] [id number] Reviewed: [facility]11-06-2023 Evaluation note* Encounter Date Diagnosis Assessment [...] of diseases classified elsewhere (ICD-10 - B96.89) [facility] Other 09-26-2023 Hospital Discharge instructions Patient Education [...] Follow these instructions at home: Medicines Take zblj-zqr-gqckqjp and prescription medicines only as told by [...] and water are not available, use hand metal room dental technician. Keep all follow-up visits. This is important. [...] provider. Document Revised: 02/06/2022 Document Reviewed: 02/06/2022 Snipd Patient Education 2022 Soup.[email or web address]. Follow Up Care 12/19/2022 11:45:54 With:Joaquim Rice Address: [address] [place] [address]- Business (1) When: Unknown Comments:Call for followup appointment With:Ashish Chester Address: [address] [place] [address]- Business (1) When:2 weeks Comments:Call for followup appointment With:Marcelo Call Address: [address], [address] [place] [address]- Business (1) When: Unknown [facility]09-26-2023 Evaluation + Plan noteExtracted from: Title:APSO [...] Started patient on MiraLAX for constipation. Ordered: [facility] Hospital Care/Day Moderate 35 Minutes 26066 2. Acute blood loss anemia (D62: Acute posthemorrhagic anemia) From recent admission. Hemoglobin stable. Continue on ferrous sulfate. [facility]: [facility]/Day Moderate 35 Minutes 63260 3. 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 Ordered: [facility] Hospital Care/Day Moderate 35 Minutes 81521 4. HTN (hypertension) (I10: Essential (primary) hypertension) Blood pressure controlled. Continue on Coreg and lisinopril. Ordered: [facility] Hospital Care/Day Moderate 35 Minutes 50993 5. Hypothyroidism (E03.9: Hypothyroidism, unspecified) Stable. On Synthroid. Disposition: To care home facility when arranged. I discussed the diagnosis and plan of care with the patient at the bedside. Moderate level of MDM based on addressing above issues. This documentation was transcribed using voice recognition software. Several attempts were made to ensure accuracy. However inadvertent computerized balance assembler errors may be present. Soni Padgett. Hospitalist. Ordered: [facility] Hospital Care/Day Moderate 35 Minutes [id number] Orders: bisacodyl, 10 mg = 2 tab(s), Tab-EC, Oral, Once, Stop date 12/24/22 10:00:00 EDT, Routine, Start date 12/24/22 10:00:00 EDT, 12/24/22 9:10:00 EDT polyethylene glycol 3350, 17 gram = 1 EA, Powder-Recon, Oral, Daily, Routine, Start date 12/24/22 10:00:00 EDT, 12/24/22 10:00:00 EDT Referral to [facility] Addendum by Sarah PADGETT MD on [...] PICC line. Infectious disease consult pending. Ordered: [facility]/Day Moderate 35 Minutes 10025 2. Acute blood loss anemia (D62: Acute posthemorrhagic anemia) From recent admission. Hemoglobin above 7.0. No need for blood transfusion. Continue on ferrous sulfate. Ordered: [facility] Hospital Care/Day Moderate 35 Minutes 73337 3. 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 Ordered: [facility] Hospital Care/Day Moderate 35 Minutes 79185 4. HTN (hypertension) (I10: Essential (primary) hypertension) Blood pressure fairly controlled. Continue on Coreg, lisinopril. Ordered: [facility] Hospital Care/Day Moderate 35 Minutes 52754 5. Hypothyroidism (E03.9: Hypothyroidism, unspecified) Continue Synthroid. Disposition: Pending final wound culture results and final infectious disease recommendations. I discussed the diagnosis and plan of care with the patient at the bedside. Moderate level of MDM based on addressing above issues. This documentation was transcribed using voice recognition software. Several attempts were made to ensure accuracy. However inadvertent computerized balance assembler errors may be present. Soni Padgett. Hospitalist. Ordered: [facility]/Day Moderate 35 Minutes 75074 Extracted from: Title:Progress/SOAP Note Author:Rosalia Grossman DO [...] Ordered: Initial Hospital Care/Day Moderate 55 Minutes 77467 2. 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 HTN (hypertension) (I10: Essential (primary) hypertension) On lisinopril and carvedilol from home; we also resumed her atorvastatin Ordered: Initial Hospital Care/Day Moderate 55 Minutes 22718 PLAN: 1. Patient is on daptomycin 2. [...] PPI 8. Full CODE STATUS Extracted from: Title:ANES Post Op - General Author:MD Juan , Nomi Lehman Date:12/20/22 Plan Transfer/Discharge: Transfer/Discharge Discharge when meets criteria ( To home ). Extracted from: Title:ANES Pre Op - Adult General Author:Cruzito em MD, Ahmad F Date:12/20/22 Plan [place] Society of Anesthesiologists (ASA) physical status classification: [...] NM Gastric Emptying Study 04/10/22 [facility]09-10-2023 Hospital Discharge instructions Follow Up Care 12/08/2022 11:51:54 With:Emely Mccall DO, FAM Address: When:Within 1 Month(s) [facility] 09-01-2023 Evaluation + Plan noteExtracted from: Title:Discharge Note Author:FALLON BANKS, Soni Almaguer ate:11/29/22 Stable. Discharge To, Anticipated II - [facility] Unit Discharged to - Home independently Discharge [...] if needed [address] [place] [address]- Business (1) Additional Instructions: Joaquim Rice Within 2 to 4 weeks [address] [place] [address]- Business (1) Additional Instructions: Call for followup [...] physical therapy pending precertification to SNF. Ordered: [facility] Hospital Care/Day Moderate 35 Minutes 97656 2. Fall (W19.XXXA: Unspecified fall, initial encounter) Mechanical fall. Stable. Ordered: [facility] Hospital Care/Day Moderate 35 Minutes 93488 3. Acute blood loss anemia (D62: Acute posthemorrhagic anemia) Acute blood loss anemia in the perioperative period. Patient received 1 unit of packed red blood cell transfusion and hemoglobin is stable at around 8.6. She also received IV iron infusions. Continue on oral iron. Ordered: [facility] Hospital Care/Day Moderate 35 Minutes 29934 4. Hypertension (I10: Essential (primary) hypertension) Blood pressure fairly controlled. Continue on Coreg and lisinopril. Ordered: [facility] Hospital Care/Day Moderate 35 Minutes 10607 5. Hyperlipidemia (E78.5: Hyperlipidemia, unspecified) Stable. On Lipitor. [facility]: [facility]/Day Moderate 35 Minutes 57738 6. Diabetes (E11.9: Type 2 diabetes mellitus [...] made to ensure accuracy. However inadvertent computerized balance assembler errors may be present. Soni Padgett. Hospitalist. [...] physical therapy pending precertification to SNF. Ordered: [facility] Hospital Care/Day Moderate 35 Minutes 22216 2. Fall (W19.XXXA: Unspecified fall, initial encounter) Mechanical fall. Supportive care. Ordered: [facility] Hospital Care/Day Moderate 35 Minutes 09346 3. Acute blood loss anemia (D62: Acute posthemorrhagic anemia) Acute blood loss anemia in the perioperative period Status post 1 unit of packed red blood cell transfusion. Hemoglobin stable at 8.6. Patient received IV iron infusions. Continue on oral iron. Ordered: [facility] Hospital Care/Day Moderate 35 Minutes 05358 4. Hypertension (I10: Essential (primary) hypertension) Blood pressure fairly controlled. Continue on Coreg. We will resume lisinopril at discharge with hold parameters. Ordered: [facility] Hospital Care/Day Moderate 35 Minutes 09599 5. Hyperlipidemia (E78.5: Hyperlipidemia, unspecified) Stable. On [...] made to ensure accuracy. However inadvertent computerized balance assembler errors may be present. Soni Padgett. Hospitalist. [...] 120, # 90 tab(s), Refills(s) 0, Pharmacy: [facility] #[facility], 162, cm, 01/31/22 21:16:00 EDT, Height/Length Dosing, 70.4, kg, 01/31/22 21:16:00 EDT, Weight Dosing UA With Cult Reflex Extracted from: Title:APSO Note Author:FALLON BANKS, Sarahfo Date: Called [id number] [place] female with history of hypertension, [...] physical therapy pending precertification to SNF. Ordered: [facility] Hospital Care/Day Moderate 35 Minutes 04888 2. Fall (W19.XXXA: Unspecified fall, initial encounter) Mechanical fall. Supportive care. Ordered: [facility] Hospital Care/Day Moderate 35 Minutes 44720 3. Acute blood loss anemia (D62: Acute posthemorrhagic anemia) Acute blood loss anemia in the perioperative period Status post 1 unit of packed red blood cell transfusion. Patient received IV iron infusions. Continue on oral iron. Ordered: [facility] Hospital Care/Day Moderate 35 Minutes 39016 4. Hypertension (I10: Essential (primary) hypertension) Blood pressure fairly controlled. Continue on Coreg. Lisinopril on hold. Ordered: [facility] Hospital Care/Day Moderate 35 Minutes 73988 5. Hyperlipidemia (E78.5: Hyperlipidemia, unspecified) Stable. On Lipitor. Ordered: [facility] Hospital Care/Day Moderate 35 Minutes 55474 6. Diabetes (E11.9: Type 2 diabetes mellitus [...] made to ensure accuracy. However inadvertent computerized balance assembler errors may be present. Soni Padgett. Hospitalist. [...] Post Op - General Author:MD Juan , [facility] Date:11/25/22 Plan Transfer/Discharge: Transfer/Discharge Discharge when [...] Author:Cruzito em MD, Ahmad F Date:11/25/22 Plan [place] Society of Anesthesiologists (ASA) physical status classification: Class III. Anesthetic Preoperative Plan Anesthesia: General. . Anesthetic plan, risks, benefits, and alternatives discussed with the patient and/or family. Risks discussed: nausea, vomiting, headache, sore throat, dental injury, serious complications. Patient verbalized understanding. Communication: face to face with patient 5 minutes. Extracted from: Title:ORTHO Consult Author:Joaquim Rice DO Micheal e:11/24/22 Impression and Plan 67-year-old [...] and coordinating care. Extracted from: Title:APSO Note Author:DANISHJENNIFER NARANJO Janny jaime Date:11/24/22 PLAN: 1. Closed hip fracture (S72.009A: [...] MENESES MD Location:Extended Care Appointment Type:[facility] Future Scheduled Tests Radiology* [place] Gastric Emptying Study 04/10/22 [facility]08-31-2023 Hospital Discharge instructions Patient Education 11/28/2022 13:25:57 [...] your health care provider. General instructions Take rctv-qah-vboueqb and prescription medicines only as told by [...] provider. Document Revised: 11/17/2020 Document Reviewed: 11/17/2020 Snipd Patient Education 2021 [employer].io. Follow Up Care 11/24/2022 00:36:57 With:Marcelo Call Address: [address] [facility] [place] [address] Business (1) When: only if needed With:Joaquim Rice Address: [address] [place] [address] Business (1) When:2 to 4 weeks Comments:Call for followup appointment [facility]07-05-2023 Evaluation + Plan noteExtracted from: Title:ED Note [...] NM Gastric Emptying Study 04/10/22 [facility]06-07-2023 Hospital Discharge instructions Patient Education 09/04/2022 [...] Follow these instructions at home: Medicines Take xkbh-xxc-dqbuanv and prescription medicines only as told by your health care provider. Ask your health care provider if the medicine prescribed to you: ?Requires you to avoid driving or using heavy machinery. ?Can cause constipation. You may need to take these actions to prevent or treat constipation: ?Drink enough fluid to keep your urine pale yellow. ?Take lfhn-zvu-ksfbzzz or prescription medicines. ?Eat foods that are [...] provider. Document Revised: 11/24/2019 Document Reviewed: 11/24/2019 Snipd Patient Education 2022 [employer]. 09/04/2022 21:51:36 Head Injury, Adult Head Injury, [...] Ask your health care provider for a xzcv-xi-pwrj plan for gradually returning to activities. Ask [...] your friends, family, a trusted colleague, and prop worker about your injury, symptoms, and restrictions. Have them watch for any new or worsening problems. General instructions Take rvoz-bwn-ofraekd and prescription medicines only as told by [...] Document Reviewed: 01/28/2020 Elsevier Patient Education 2022 Soup.io. Follow Up Care 09/04/2022 20:22:40 With:Marcelo Link Address: [address] [place] [address] Business (1) When:Within 3 Day(s) [facility]06-07-2023 Hospital Discharge instructions Patient Education 09/04/2022 19:32:42 RICE Therapy for Routine Care of Injuries, Wwkd-on-Iynf RICE Therapy for Routine Care of Injuries [...] provider. Document Revised: 01/04/2021 Document Reviewed: 01/04/2021 Snipd Patient Education 2022 [employer]. 09/04/2022 19:32:42 Contusion, Uhci-jz-Iaia Contusion A contusion is a deep bruise. [...] sitting or lying down. General instructions Take abci-yko-akledik and prescription medicines only as told by [...] is also called RICE. Youmay be given flzj-rkc-abewyej medicines for pain. Contact a doctor if [...] provider. Document Revised: 01/10/2022 Document Reviewed: 01/10/2022 Snipd Patient Education 2022 [employer]. Follow Up Care 09/04/2022 15:05:18 With:Marcelo Link Address: [address] [place] [address]- Business (1) When:09/07/2022 18:53:36 Comments:Follow-up with your primary care provider in 3 to 5 days. If symptoms worsen, do not improve, or new symptoms arise please report back to emergency department for further evaluation. [facility]06-07-2023 Evaluation + Plan noteExtracted from: Title:ED Note Author:Michelle DUVALL, Hari Palmer. Date :09/04/22 Closed head injury Cervical strain Future Scheduled Tests Radiology* NM Gastric Emptying Study 04/10/22 [facility]05-12-2023 Hospital Discharge instructions Patient Education 08/09/2022 [...] Ask your health care provider for a lijk-ur-ixaj plan for gradually returning to activities. Ask [...] your friends, family, a trusted colleague, and prop worker about your injury, symptoms, and restrictions. Have them watch for any new or worsening problems. General instructions Take inmu-uwl-hersrtk and prescription medicines only as told by [...] provider. Document Revised: 01/28/2020 Document Reviewed: 01/28/2020 Snipd Patient Education 2022 [employer]. 08/09/2022 14:12:59 Fall Prevention in Hospitals, Adult [...] balance. Talk with a physical therapist or crew trainer if recommended by your health care [...] provider. Document Revised: 10/18/2020 Document Reviewed: 10/18/2020 Snipd Patient Education 2022 [employer]. Follow Up Care 08/09/2022 12:15:41 With:Marcelo Link Address: [address] [facility] [place] [address]- Business (1) When:08/12/2022 14:11:58 Comments:Call the office [...] any new or worsening symptoms. [facility]05-12-2023 Evaluation + Plan noteExtracted from: Title:ED [...] NM Gastric Emptying Study 04/10/22 [facility]04-21-2023 Hospital Discharge instructions Patient Education 07/18/2022 [...] to strengthen the arm. General instructions Take cmax-yuu-nvxxedf and prescription medicines only as told by [...] provider. Document Revised: 11/30/2021 Document Reviewed: 11/30/2021 Snipd Patient Education 2022 [employer]d Inc. 07/18/2022 23:33:46 Hip Pain Hip Pain [...] activities that cause pain. General instructions Take gyls-rvh-aldaqfg and prescription medicines only as told by [...] provider. Document Revised: 08/02/2019 Document Reviewed: 08/02/2019 Snipd Patient Education 2022 [employer]. 07/18/2022 23:33:46 Fall Prevention in the Home, Adult, Dlow-tb-Rdez Fall Prevention in the Home, Adult Falls [...] Keep items that you use often in dfch-wm-pyiea places. Lower the shelves around your home [...] of the way. Do not use floor vietnamese or wax that makes floors slippery. What [...] Disease Control and Prevention, STEADI: www.cdc.gov [place] on Aging: www.britany.nih.gov Contact a doctor if: [...] provider. Document Revised: 12/17/2021 Document Reviewed: 10/18/2020 Snipd Patient Education 2022 [employer]. Follow Up Care 07/18/2022 22:27:53 With:Marcelo Link Address: [address] [place] [address]- Business (1) When:07/21/2022 Comments:Contact ibuprofen, Tylenol at home as needed for pain every 6 hours. Please follow-up with your primary care doctor in the next 2 to 3 days. Please return to the ED for any new or worsening symptoms or [facility]04-20-2023 History of Present illness Narrative* Naseem Hardy MD - 07/18/2022 4:32 PM EDT Images from the original note were not included. EMERGENCY TRIAGE, TREAT AND TRANSPORT (ET3) DOCUMENTATION OF TELEHEALTH VISIT Date / Time: 07/18/2022 / 1615 Name: Louis Fartun NOTE: CORRECT SPELLING MAY BE ZACH : 1955 SSN: (Not on file) EMS Agency: [facility] [x] Verbal consent obtained [] Implied [...] by: Naseem Hardy MD documented in this [id number] Evaluation + Plan note Extracted from: Title:ED [...] NM Gastric Emptying Study 04/10/22 [facility]01-11-2023 Evaluation + Plan note Future Scheduled Tests Radiology* CO Gastric Emptying Study 04/10/22 [facility]01-04-2023 Hospital Discharge instructions Patient Education 04/03/2022 [...] sitting or lying down. General instructions Take pixy-ijd-ifjidiy and prescription medicines only as told by [...] compression, and elevation. You may be given ioad-grf-ggqveuc medicines for pain. Contact a health care [...] 12/25/2005 Document Revised: 11/05/2018 Document Reviewed: 11/05/2018 Snipd Patient Education 2020 [employer].io. Follow Up Care 04/03/2022 16:34:06 With:Marcelo Link Address: [address] [facility] [place] [address]- Business (1) When:04/06/2022 18:32:44 Comments:Call the office [...] any new or worsening symptoms. [facility]01-04-2023 Evaluation + Plan noteExtracted from: Title:ED [...] Date:04/10/2022 10:15:00 AM Scheduled Provider:London DIAZ MD Location:[facility] [place] Digestive Health Appointment Type:[facility] Follow Up [facility]01-03-2023 Evaluation + Plan noteExtracted from: Title:ED Note Author:Isaak Marinelli DO Date:04/02 Contusion of hip (S70.00XA: Contusion of unspecified hip, initial encounter) Elbow contusion (S50.00XA: Contusion of unspecified elbow, initial encounter) Orders: XR Elbow 3+ Views Left XR Hip 2-3 Views Left + Pelvis Future Appointments Appointment Date:04/10/2022 10:15:00 AM Scheduled Provider:London DIAZ MD Location:[facility] [place] Digestive Health Appointment Type[facility] Follow Up [facility]01-03-2023 Hospital Discharge instructions Patient Education 04/02/2022 [...] your health care provider. General instructions Take vlah-tzx-frgotca and prescription medicines only as told by your health care provider. Ask your health care provider if the medicine prescribed to you: ?Requires you to avoid driving or using heavy machinery. ?Can cause constipation. You may need to take actions to prevent or treat constipation, such as: ?Drink enough fluid to keep your urine pale yellow. ?Take ikme-gdd-chzxozr or prescription medicines. ?Eat foods that are [...] 11/05/2018 Document Revised: 07/08/2019 Document Reviewed: 11/05/2018 Snipd Patient Education 2020 Soup.io. 04/02/2022 11:03:46 Elbow Contusion Elbow Contusion An [...] sling or splint to support your injury. Tjkj-smu-rcmodlg anti-inflammatory medicines, such as ibuprofen, for pain control. Pkgka-bn-ggtkcc exercises. Follow these instructions at home: RICE [...] bath or a shower. General instructions Take qzev-vqs-cndbjtw and prescription medicines only as told by your health care provider. Return to your normal activities as told by your health care provider. Ask your health care provider what activities are safe for you. Do tlhkp-hd-yawvsi exercises only as told by your health [...] 02/23/2007 Document Revised: 09/17/2018 Document Reviewed: 09/17/2018 Snipd Patient Education 2020 [employer].io. Follow Up Care 04/02/2022 09:43:43 With:Marcelo Link Address: [address] [facility] [place] [address]- Business (1) When:Within 3 Day(s) [facility]12-14-2022 Hospital Discharge instructions Patient Education 03/13/2022 [...] home: Managing pain, stiffness, and swelling Take boae-zxw-uagaxvb and prescription medicines only as told by [...] as fried and sweet foods. ?Take an cvzz-gca-naxcpqt or prescription medicine for constipation. Contact a [...] 12/10/2001 Document Revised: 05/13/2019 Document Reviewed: 04/06/2018 Snipd Patient Education 2020 Soup.io. 03/13/2022 19:21:56 Abdominal Pain, Adult, Regl-zx-Svnz Abdominal Pain, Adult Many things can cause belly (abdominal) pain. Most times, belly pain is not dangerous. Many cases of belly pain can be watched and treated at home. Sometimes, though, belly pain is serious. Your doctor will try to find the cause of your belly pain. Follow these instructions at home: Medicines Take tquc-zhu-tcngelp and prescription medicines only as told by [...] your belly pain for any changes. Take sgmh-mbo-khaooci and prescription medicines only as told by [...] 09/02/2008 Document Revised: 07/26/2019 Document Reviewed: 07/26/2019 Snipd Patient Education 2019 [employer] Follow Up Care 03/13/2022 16:37:17 With:Marcelo Link Address: [address] [place] [address]- Business (1) When:03/16/2022 19:05:35 Comments:Follow-up with your primary care provider in 3 to 5 days. If symptoms worsen, do not improve, or new symptoms arise please report back to emergency department for further evaluation. [facility]11-12-2022 Hospital Discharge instructions Patient Education 02/08/2022 [...] Follow these instructions at home: Medicines Take biwb-bnk-isuznug and prescription medicines only as told by [...] Watch your condition for any changes. Take mnvo-nng-gxfiyav and prescription medicines only as told by [...] 12/25/2005 Document Revised: 07/26/2019 Document Reviewed: 07/26/2019 Snipd Patient Education 2020 Soup.io. Follow Up Care 02/08/2022 20:29:45 With:Marcelo Call Address: [address] [place] [address] [facility] (1) When:02/11/2022 Comments:Attend scheduled follow-up with Dr. Call next week to discuss management of ongoing chronic pain and other symptoms [facility]11-11-2022 Evaluation + Plan noteExtracted from: Title:ED Note Author:Delbert Estrada PA-C Micheal e:02/08/22 Abdominal pain (R10.9: Unspe cified abdominal pain) Nausea (R11.0: Nausea) Orders: Automated Diff Basic Metabolic Panel Beta-hydroxybutyrate CBC w/ Auto Diff eGFR Hepatic Function Panel UA With Cult Reflex XR Abdomen 1 View Future Appointments Appointment Date:04/10/2022 10:15:00 AM Scheduled Provider:London DIAZ MD Location:[facility] [place] Digestive Health Appointment Type:[facility] Follow Up [facility]11-06-2022 Evaluation + Plan noteExtracted from: Title:ED Note Author:Vadim Gusman MD Date: 1. Medication side effect (T 88.7XXA: Unspecified adverse effect of drug or medicament, initial encounter) Orders: Automated Diff Basic Metabolic Panel CBC w/ Auto Diff eGFR Extra Blue Tube UA With Cult Reflex Future Appointments Appointment Date:04/10/2022 10:15:00 AM Scheduled Provider:London DIAZ MD Location:[facility] [place] Digestive Health Appointment Type:[facility] Follow Up [facility]11-06-2022 Hospital Discharge instructions Patient Education 02/03/2022 05:00:01 Accidental Drug Poisoning, Adult Accidental Drug Poisoning, Adult Accidental drug poisoning happens when a person accidentally takes too much of a substance, such asa prescription medicine, an wvqi-jzz-wuoyrqw medicine, a vitamin, a supplement, or an [...] medicines. Cocaine. Heroin. Multivitamins that contain iron. Rgzs-mgt-yhcbkch cold and cough medicines. What increases the [...] Follow these instructions at home: Medicines Take lbkb-kfs-iboxbbc and prescription medicines only as told by your health care provider. Before taking a new medicine, ask your health care provider whether the medicine: ?May cause side effects. ?Might react with other medicines. Keep a list of all the medicines that you take, including wurb-qhu-fdjiecr medicines, vitamins, supplements, and herbs. Bring this [...] your cell phone. The hotline of the [place] [employer] of Poison Control Centers is . [...] a substance, such asa prescription medicine, an zdoo-kwm-dllxvpo medicine, a vitamin, a supplement, or an [...] 05/31/2005 Document Revised: 02/27/2018 Document Reviewed: 02/16/2018 Snipd Patient Education 2020 [employer].io. 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 Dr. Kilo Harris Hospitalist at [facility] Extracted from: Title:ED Note Author:Ty Manrique [...] Date:04/10/2022 10:15:00 AM Scheduled Provider:London DIAZ MD Location:[facility] [place] Digestive Health Appointment Type:[facility] Follow Up Diagnostic Tests Pending * Blood Gas Randall 01/31/22 [facility]11-05-2022 Hospital Discharge instructions Patient Education 02/02/2022 [...] Follow these instructions at home: Medicines Take shoq-vlq-nogwizv and prescription medicines only as told by [...] is important. Where to find more information [place] Association of Kidney Patients: www.aakp.org National Kidney Foundation: www.kidney.org [place] Kidney Fund: www.akfinc.org [facility]: [...] 09/30/2011 Document Revised: 02/27/2018 Document Reviewed: 03/07/2017 Snipd Patient Education 2020 [employer].io. 02/02/2022 11:03:37 Acute Kidney Injury, Adult Acute [...] Follow these instructions at home: Medicines Take kabo-bde-lbdfhdk and prescription medicines only as told by [...] is important. Where to find more information [place] Association of Kidney Patients: www.aakp.org National Kidney Foundation: www.kidney.org [place] Kidney Fund: www.akfinc.org [facility] Program: [...] 09/30/2011 Document Revised: 02/27/2018 Document Reviewed: 03/07/2017 Snipd Patient Education 2020 [employer].io. Follow Up Care 01/31/2022 21:09:18 With:Marcelo Link Address: [address] [facility] [place] [address]- Business (1) When:02/08/2022 10:15:00 [facility]11-02-2022 Evaluation + Plan noteExtracted from: Title:Discharge [...] Tab, 40 mg= 1 tab(s), Oral, Daily [place] 325 mg-5 mg oral tablet, 1 tab(s), Oral, BID, PRN Paxil 10 mg Tab, 10 mg= 1 tab(s), Oral, As Directed rosuvastatin 20 mg Tab, 20 mg= 1 tab(s), Oral, Daily traZODONE 100 mg Tab, 200 mg= 2 tab(s), Oral, Once a day (at bedtime) Trulicity Pen 4.5 mg/0.5 mL subcutaneous solution, 4.5 mg, SubCutaneous, qWeek With When Contact Information NOMI WETZEL [address] [place] [address]- Business (1) Additional Instructions: Marcelo Link In 0 days [address] [facility] [place] [address]- Business (1) Additional Instructions: Form - Daily [...] Encounter for prophylactic measures, unspecified) Lovenox daily [facility] [id number] Hospital Discharge instructions Patient Education 01/30/2022 09:29:25 [...] 02/18/2005 Document Revised: 12/29/2018 Document Reviewed: 12/13/2016 Snipd Patient Education 2020 [employer]d Inc. 01/30/2022 09:29:23 Diabetic Ketoacidosis Diabetic Ketoacidosis [...] sugar-free liquids, such as water. Medicines Take tlvm-lve-iudvzij and prescription medicines only as told by [...] 03/14/2001 Document Revised: 05/02/2017 Document Reviewed: 04/21/2017 Snipd Patient Education 2020 [employer].io. 01/30/2022 09:29:22 Diabetes Mellitus and Sick Day [...] lot of sugar. Take medicines as directed Mljt-awtc-slu-counter and prescription medicines only as told by [...] 03/19/2004 Document Revised: 12/13/2016 Document Reviewed: 12/13/2016 Snipd Patient Education 2020 [employer].io. 01/30/2022 09:29:20 Diabetes Mellitus and Nutrition, Adult [...] that you work with a diet and nutritional services host (dietitian) tomake a meal plan that is [...] care provider. Work with a counselor or medical educator to identify strategies to manage stress and any emotional and social challenges. Questions to ask a health care provider Do I need to meet with a medical educator? Do I need to meet with a dietitian? What number can I call if I have questions? When are the best times to check my blood glucose? Where to find more information: [place] Diabetes Association: diabetes.org Academy of Nutrition and Dietetics: www.eatright.org National [place] of Diabetes and Digestive and Kidney Diseases (NIH): www.niddk.nih.gov Summary A healthy meal plan will help you control your blood glucose and maintain a healthy lifestyle. Working with a diet and nutritional services host (dietitian) can help you make a meal [...] 12/12/2005 Document Revised: 02/27/2018 Document Reviewed: 04/21/2017 Snipd Patient Education 2020 [employer].io. 01/30/2022 09:29:19 Diabetes Mellitus and Foot Care Diabetes Mellitus and Foot Care Foot care is an important part of your health, especially when you have diabetes. Diabetes may cause you to have problems because of poor blood flow (circulation) to your feet and legs, which can cause your skin to: Become thinner and primer expeditor and drier. Break more easily. Heal more slowly. [...] 03/14/2001 Document Revised: 04/29/2018 Document Reviewed: 04/18/2017 Snipd Patient Education 2020 [employer].io. 01/30/2022 09:29:18 Diabetes Mellitus and Exercise Diabetes [...] plan? Your health care provider or certified drug counselor can help you make a [...] stress. Your health care provider or certified drug counselor can help you make a [...] 06/06/2004 Document Revised: 2017 Document Reviewed: 08/26/2016 Snipd Patient Education 2020 [employer].io. Follow Up Care 01/28/2022 11:57:18 With:NOMI WETZEL Address: [address] [place] [address]- Business (1) When:02/05/2022 09:40:00 Comments:For DKA & Renal Failure With:Marcelo Call Address: [address] [place] [address]- Business (1) When:02/08/2022 10:15:00 [facility]10-30[facility]2022 Hospital Discharge instructions Patient Education 01/27/2022 [...] oral rehydration solution (ORS). This is an edmb-bpa-zmpsjya medicine that helps return your body to [...] drinks, sports drinks, and soda. Eat bland, bqmu-bu-zhswkd foods in small amounts as you are able. These foods include bananas, applesauce, rice, lean meats, toast, and crackers. Avoid alcohol. Avoid spicy or fatty foods. Medicines Take tuox-exr-mvnjanx and prescription medicines only as told by your health care provider. If you were prescribed an antibiotic medicine, take it as told by your health care provider. Do notstop using the antibiotic even if you start to feel better. General instructions Wash your hands often using soap and water. If soap and water are not available, use a hand metal room dental technician. Others in the household should wash their [...] soap and water are not available, usehand metal room dental technician. Contact a health care provider if your diarrhea gets worse or you have new symptoms. Get help right away if you have signs of dehydration. This information is not intended to replace advice given to you by your health care provider. Make sure you discuss any questions you have with your health care provider. Document Released: 03/07/2003 Document Revised: 08/03/2019 Document Reviewed: 08/21/2018 Snipd Patient Education 2020 [employer].io. 01/27/2022 18:13:28 Nausea and Vomiting, Adult Nausea [...] water added (diluted fruit juice). Eat bland, chhk-on-kvmeee foods in small amounts as you are able. These foods include bananas, applesauce, rice, lean meats, toast, and crackers. Avoid fluids that contain a lot of sugar or caffeine, such as energy drinks, sports drinks, and soda. Avoid alcohol. Avoid spicy or fatty foods. General instructions Take nsad-njg-sblgxwp and prescription medicines only as told by your health care provider. Drink enough fluid to keep your urine pale yellow. Wash your hands often using soap and water. If soap and water are not available, use hand metal room dental technician. Make sure that all people in your [...] eating and drinking to prevent dehydration. Take orpp-llw-umhnhaa and prescription medicines only as told by [...] 03/17/2006 Document Revised: 07/09/2019 Document Reviewed: 08/25/2018 Snipd Patient Education 2020 [employer]. 01/27/2022 18:13:28 Abdominal Pain, Adult Abdominal Pain, [...] Follow these instructions at home: Medicines Take bclb-adx-mfajayn and prescription medicines only as told by [...] Watch your condition for any changes. Take tnme-zna-tamucvt and prescription medicines only as told by [...] 12/25/2005 Document Revised: 07/26/2019 Document Reviewed: 07/26/2019 Snipd Patient Education 2020 [employer]. Follow Up Care 01/27/2022 14:43:33 With:London DIAZ Address: [address] [place] [address] Business (1) When:01/30/2022 17:32:45 Comments:Return to the emergency room if your pain gets worse, you develop fever, vomiting recurs or any newsymptoms. With:Marcelo Call Address: [address] [place] [address]- Business (1) When:Within 3 Day(s) [facility]10-30-2022 Evaluation + Plan noteExtracted from: Title:ED [...] PTT UA With Cult Reflex [facility]08-20-2022 Hospital Discharge instructions Patient Education 11/17/2021 20:23:44 Hypoglycemia, Gttc-hw-Poxf Hypoglycemia Hypoglycemia is when the sugar (glucose) [...] these instructions at home: General instructions Take ayir-bra-uvzlpzc and prescription medicines only as told by [...] 06/11/2010 Document Revised: 07/08/2019 Document Reviewed: 04/19/2016 Snipd Patient Education 2020 [employer]. Follow Up Care 11/17/2021 17:29:57 With:Macrelo Call Address: [address] [facility] [place] [address] Business (1) When:11/20/2021 20:12:53 [facility] note No data available for this section [facility] Future Appointments Appointment Date:11/13/2021 02:45:00 PM Scheduled Provider: [facility] Type:[facility] Eval () [facility] Future Appointments Appointment Date:04/10/2022 10:15:00 AM Scheduled Provider:London DIAZ MD Location:[facility] Appointment Type:[facility] Follow [facility] Future Appointments Appointment Date:06/14/2022 12:30:00 PM Scheduled Provider: Location:[facility] Appointment Type:Surgery FT Future Scheduled Tests Radiology* NM Gastric Emptying Study 04/10/22 [facility] Evaluation + Plan note Future Appointments Appointment Date:08/01/2023 09:40:00 AM Scheduled Provider:Marcelo Call DO Location:[facility] Appointment Type:[facility] Evaluation + Plan note Future Appointments Appointment Date:08/07/2023 11:40:00 AM Scheduled Provider:Marcelo Call DO Location:[facility] Appointment Type:[facility] Evaluation + Plan note Future Appointments Appointment Date:09/18/2023 02:40:00 PM Scheduled Provider:Marcelo Call DO Location:[facility] Appointment Type:[facility] Evaluation + Plan note Future Appointments Appointment Date:11/21/2023 09:30:00 AM Scheduled Provider: Location:[facility] Appointment Type:FM Medicare Wellness Subsequent Appointment Date:11/21/2023 10:40:00 AM Scheduled Provider:Marcelo Call DO Location:[facility] Appointment Type:FM Open [facility] Evaluation + Plan note Future Appointments Appointment Date:02/23/2024 10:00:00 AM Scheduled Provider:Marcelo Call DO Location:[facility] Appointment Type: Open Appointment Date:11/11/2024 11:00:00 AM Scheduled Provider: Location:[facility] Appointment Type:FM Medicare Wellness Subsequent [facility] Evaluation + Plan note Future Appointments Appointment Date:02/23/2024 10:00:00 AM Scheduled Provider:Marcelo Call DO Location:[facility] Appointment Type: Open Appointment Date:11/11/2024 11:00:00 AM Scheduled Provider: Location:[facility] Appointment Type:FM Medicare Wellness Subsequent Future Scheduled Tests Laboratory* UA with Cult Rflx 12/26/23 Radiology* XR Knee Complete 4+ Views Right 12/30/23 * XR Hip 2-3 Views Right 12/30/23 [facility] Evaluation + Plan note Future Appointments Appointment Date:02/23/2024 10:00:00 AM Scheduled Provider:Marcelo Call DO Location:[facility] Appointment Type:FM Open Appointment Date:11/11/2024 11:00:00 AM Scheduled Provider: Location:[facility] Appointment Type:FM Medicare Wellness Subsequent Diagnostic Tests Pending * Urine Culture 12/30/23 Future Scheduled Tests Laboratory* UA with Cult Rflx 12/26/23 Radiology* XR Knee Complete 4+ Views Right 12/30/23 * XR Hip 2-3 Views Right 12/30/23 [facility] Evaluation + Plan note Future Appointments Appointment Date:02/23/2024 10:00:00 AM Scheduled Provider:Marcelo Call DO Location:[facility] Appointment Type:FM Open Appointment Date:11/11/2024 11:00:00 AM Scheduled Provider: Location:[facility] Appointment Type: Medicare Wellness Subsequent Future Scheduled Tests Laboratory* UA with Cult Rflx 12/26/23 [facility] evaluation + Plan note Future Appointments Appointment Date:06/08/2024 10:40:00 AM Scheduled Provider:Marcelo Call DO Location:[facility] Appointment Type: Open Appointment Date:11/11/2024 11:00:00 AM Scheduled Provider: Location:[facility] Appointment Type: Medicare Wellness Subsequent Future Scheduled Tests Laboratory* UA with Cult Rflx 12/26/23 [facility] evaluation + Plan note Future Appointments Appointment Date:11/04/2024 09:20:00 AM Scheduled Provider:Marcelo Call DO Location:[facility] Appointment Type: Open Appointment Date:11/11/2024 11:00:00 AM Scheduled Provider: Location:[facility] Appointment Type: Medicare Wellness Subsequent Future Scheduled Tests Laboratory* UA with Cult Rflx 12/26/23 [facility] evaluation + Plan note Future Appointments Appointment Date:12/07/2024 09:30:00 AM Scheduled Provider: Location:[facility] Appointment Type: Medicare Wellness Subsequent Appointment Date:12/07/2024 10:20:00 AM Scheduled Provider:Marcelo Call DO Location:[facility] Appointment Type:FM Procedure Future Scheduled Tests Laboratory* UA with Cult Rflx 12/26/23 [facility] evaluation + Plan note Future Appointments Appointment Date:01/14/2025 12:30:00 PM Scheduled Provider: Location[facility] Appointment Type:MA Screen () Appointment Date:01/14/2025 01:00:00 PM Scheduled Provider: Location:.[facility] Appointment Type:BD Bone Density (FT) Appointment Date:12/08/2025 09:30:00 AM Scheduled Provider: Location:[facility] Appointment Type: Medicare Wellness Subsequent Future Scheduled Tests Laboratory* UA with Cult Rflx 12/26/23 Radiology* BD Bone Density DEXA 01/14/25 * MA Mamm Screen w/CAD if perf and 3D Mono 01/14/25 [facility] Femi Evaluation note* Diagnosis Anxiety- Primary Anxiety state, unspecified [facility]* Diagnosis Rectal polyp- Primary Anal and rectal polyp 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 general Narrative - Reported* Type Description Date Medical History DEPRESSION Medical History HTN Medical History ARTHRITIS Medical History DIABETES Medical History NEUROPATHY Surgical History BILATERAL KNEE REPLACEMENT Surgical History LEFT HIP Surgical History LEFT THUMB Surgical History HYSTERECTOMY Surgical History GALLBLADDER Surgical History TUMOR LEFT SHOULDER Hospitalization History [facility] Discharge instructions No data available for this section [facility] No data available for this section [facility] Summary Purpose Family History No Family [...] Family History Records FoundNo Family History Records FoundNo Family History Records FoundNo Family History Records FoundNo Family History Records FoundNo Family History Records FoundNo Family History Records FoundNo Family History Records FoundNo Family History Records FoundNo Family History Records FoundNo Family History Records FoundNo Family History Records FoundNo Family History Records FoundNo Family History Records FoundNo Family History Records FoundNo Family History Records FoundNo Family History Records FoundNo Family History Records FoundNo Family History Records FoundNo Family History Records FoundNo Family History Records FoundNo Family History Records FoundNo Family History Records FoundNo Family History Records FoundNo Family History Records FoundNo Family History Records FoundNo Family History Records FoundNo Family History Records FoundNo Family History Records FoundNo Family History Records FoundNo Family History Records FoundNo Family History Records FoundNo Family History Records FoundNo Family History Records FoundNo Family History Records FoundNo Family History Records FoundNo Family History Records FoundNo Family History Records FoundNo Family History Records FoundNo Family History Records FoundNo Family History Records FoundNo Family History Records FoundNo Family History Records FoundNo Family History Records FoundNo Family History Records FoundNo Fa tequila History Records FoundNo Family History Records FoundNo Family History Records FoundNo Family History Records FoundNo Family History Records FoundNo Family History Records FoundNo Family History Records FoundNo Family History Records FoundNo Family History Records FoundNo Family History RecordsFoundNo Family History Records FoundNo Family History Records Found No data available for this section No Family History Records FoundNo Family History Records Found No data available for this section No data available for this section No Family History Records FoundNo Family History Records FoundNo Family History Records FoundNo Family History Records [...] Records FoundNo Advanced Directives Records FoundNo Advanced Directiv es Records FoundNo Advanced Directives Records FoundNo Advanced Directives Records FoundNo AdvancedDirectives Records FoundNo Advanced Directives Records FoundNo Advanced [...] Records FoundNo Advanced Directives Records FoundNo Advanced Directiv es Records FoundNo Advanced Directives Records FoundNo Advanced Directives Records FoundNo AdvancedDirectives Records FoundNo Advanced Directives Records FoundNo Advanced Directives Records FoundNo Advanced Directives Records FoundNo Advanced Directives Records FoundNo Advanced Directives Records FoundNo Advanced Directives Records FoundNo Advanced Directives Records FoundNo Advanced Directives Records FoundNo Advanced Directives Records Found Additional Source Comments Care Team (unrecognized sect ion and content) Edge Drummer Relationship Specialty Start Date End Date LinkMarcelo MD [address] [place] [id number] PCP - General Family Medicine 12/19/22 Edge Drummer Relationship Specialty Start Date End Date Marcelo Call MD [address] [facility] [address] [place] [id number] PCP - General Family Medicine 09/16/23 Edge Drummer Relationship Specialty Start Date End Date July, Emanuel Sparrow MD PCP - General 09/28/16 Beatris Hu MD [address] [place] [address] Referring Family Medicine 09/24/19 Edge Drummer Relationship Specialty Start Date End Date July, Emanuel Sparrow MD PCP - General 09/28/16 Beatris Hu MD [address] [place] [address] Referring Family Medicine 09/24/19 Edge Drummer Relationship Specialty Start Date End Date July, Emanuel Sparrow MD PCP - General 09/28/16 Beatris Hu MD [address] [place] [address] Referring Family Medicine 09/24/19 Edge Drummer Relationship Specialty Start Date End Date July, Emanuel Sparrow MD PCP - General 09/28/16 Beatris Hu MD [address] [place] [address] Referring Family Medicine 09/24/19 Edge Drummer Relationship Specialty Start Date End Date July, Emanuel Sparrow MD PCP - General 09/28/16 Beatris Hu MD [address] [place] [address] Referring Family Medicine 09/24/19 INFORMATION SOURCE (unrecogn ized section and content) DATE CREATED AUTHOR 02/06/2022 [facility] DATE CREATED AUTHOR AUTHOR'S ORGANIZ ATION 08/11/2022 [facility] DATE CREATED AUTHOR AUTHOR'S ORGANIZ ATION 12/13/2023 [facility] DATE CREATED AUTHOR AUTHOR'S ORGANIZ ATION 01/04/2024 Lyle Denney [facility] DATE CREATED AUTHOR AUTHOR'S ORGANIZ ATION 01/15/2024 [facility] DATE CREATED AUTHOR AUTHOR'S ORGANIZ ATION 10/23/2024 [facility] DATE CREATED AUTHOR AUTHOR'S ORGANIZ ATION 10/24/2024 [facility] DATE CREATED AUTHOR AUTHOR'S ORGANIZ ATION 10/25/2024 [facility] DATE CREATED AUTHOR AUTHOR'S ORGANIZ ATION 10/26/2024 [facility] DATE CREATED AUTHOR AUTHOR'S ORGANIZ ATION 10/27/2024 [facility] DATE CREATED AUTHOR AUTHOR'S ORGANIZ ATION 10/28/2024 [facility] DATE CREATED AUTHOR AUTHOR'S ORGANIZ ATION 11/04/2024 [facility] DATE CREATED AUTHOR AUTHOR'S ORGANIZ ATION 11/26/2024 [facility] DATE CREATED AUTHOR AUTHOR'S ORGANIZ ATION 12/03/2024 [facility] DATE CREATED AUTHOR AUTHOR'S ORGANIZ ATION 12/09/2024 [facility] DATE CREATED AUTHOR AUTHOR'S ORGANIZ ATION 12/10/2024 [facility] DATE CREATED AUTHOR AUTHOR'S ORGANIZ ATION 12/13/2024 [facility] DATE CREATED AUTHOR AUTHOR'S ORGANIZ ATION 12/16/2024 [facility] Reason for Visit (unrecogniz ed section and content) Reason Comments Hypertension Reason Comments Anorectal Polyp Reason Comments New Patient Reason Comments Preparations For Surgery PACC Reason Comments PreOp Call Source Comments (unrecognize d section and content) In the event this informatio n is protected by the Federal Confidentiality of Alcohol and Drug Abuse Patient Records regulations: The Federal rules restrict any use of the information to criminally investigate or prosecute any alcohol or drug abuse patient.[facility] the event this information is protected by the Federal Confidentiality of Alcohol and Drug Abuse Patient Records regulations: The Federal rules restrict any use of the information to criminally investigate or prosecute any alcohol or drug abuse patient.[facility] System[facility] the event this information is protected by the Federal Confidentiality of Alcohol and Drug Abuse Patient Records regulations: The Federal rules restrict any use of the information to criminally investigate or prosecute any alcohol or drug abuse patient.[facility] System[facility] the event this information is protected by the Federal Confidentiality of Alcohol and Drug Abuse Patient Records regulations: The Federal rules restrict any use of the information to criminally investigate or prosecute any alcohol or drug abuse patient.[facility] System[facility] the event this information is protected by the Federal Confidentiality of Alcohol and Drug Abuse Patient Records regulations: The Federal rules restrict any use of the information to criminally investigate or prosecute any alcohol or drug abuse patient.[facility] FOR RECORDS PERTAINING TO PATIENTS WHO ARE [...] BE BASED ON THE PRIMARY CLINICAL RECORDS. [facility] [employer] [facility]. provides no warranty or guarantee of the accuracy or completeness of information in this document.
[2024-12-16 10:31] LABS: Glucose Urine UA NEGATIVE (NEGATIVE)
[2024-12-16 10:49] LABS: Cast Seen? NONE SEEN #/LPF (NONE SEEN); Crystals Seen? None Seen #/HPF (None Seen); Urine Culture Indicated YES-FRMC
== END 2024-12-15 10:04 | disposition home or self-care (01) ==
LOC: LAB 10:03
PROVIDERS: PCP Family Medicine; Visit Provider Family Medicine
DX: R30.0 Dysuria (principal)
CPT/HCPCS: 81001; 87086; 87088; 87186

== ENCOUNTER 2025-03-11 09:51 | Emergency (ER) | payer MEDICARE, MEDICAID, SELFPAY ==
[2025-03-11 09:57] VITALS: BP 170/98; PULSE 59; TEMP 36.7; O2SAT 96; BMI 28.3
--- NOTE | 2025-03-11 10:03 | XR_ITS ---
[facility] [place] [id number] Patient Name: FARTUN SERRANO MRN: [id number] date: 1955 Sex: F Assigned Patient Location: ER Current Patient Location: [facility] Accession/Order Number: [id number] Exam Date: 03/11/2025 10:18 Report Date: 03/11/2025 10:38 At the request of: JOSSUE TORRES MD Procedure: XR foot LT min 3V LEFT FOOT - 3 views CLINICAL DATA: Infection at the first toe. Diabetes. COMPARISON: None AP, lateral and oblique views were obtained. There is osteopenia. There are postoperative changes at the first toe with a coiled wire at the base of the first metatarsal. There is question of fusion at the distal interphalangeal joint. There is also some deformity with postoperative and/or degenerative change at the distal first metatarsal/first metatarsal phalangeal joint. Chronic appearing bony changes are also seen at the proximal phalanx of the second toe. There is no definite acute fracture, dislocation or bony destruction. Mild spurring is seen at the dorsum of the tarsals. A spur is present at the insertion of the Achilles tendon. There may be slight soft tissue swelling at the first toe. No subcutaneous air or radiopaque foreign bodies are noted. XR/XR foot LT min 3V IMPRESSION: CHRONIC-APPEARING BONY FINDINGS INCLUDING POSTOPERATIVE AND DEGENERATIVE CHANGES. NO OBVIOUS ACUTE BONY FINDINGS GIVEN THE LIMITED HISTORY AND NO COMPARISONS. Impression dictated by: Elida Duran M.D. 03/11/2025 10:38 AM Dictation Location: [employer] Electronically authenticated by: [id number] Y Date: 03/11/2025 10:38
--- NOTE | 2025-03-11 10:07 | ED_ITS ---
HPI HPI - General Adult General Chief complaint: Extremity Problem, Nontraumatic Stated complaint: POST OP INFECTION L FOOT Time Seen by Provider: 03/11/25 09:59 Source: patient Mode of arrival: Wheelchair Limitations: no limitations History of Present Illness HPI narrative: 69-year-old female presented to the emergency department for redness and swelling to her left great toe. She states about 9 days ago she had her nails trimmed and a few days ago became red and inflamed. No drainage or injury otherwise. She is diabetic and is concerned about the infection. Related Data Home Medications ?Medication ?Instructions ?Recorded ?Confirmed acetaminophen 325 mg tablet 325 mg 04/25/24 Held on 03/11/25. Instructions: Doctor's Order ascorbic acid (vitamin C) 500 mg 04/25/24 tablet (Vitamin C) atorvastatin 40 mg tablet 40 mg 04/25/24 bisacodyl 5 mg tablet,delayed 10 mg 04/25/24 release (Laxative (bisacodyl)) Held on 03/11/25. Instructions: Doctor's Order bupropion HCl 150 mg tablet,12 hr 150 mg PO 04/25/24 sustained-release carvedilol 12.5 mg tablet 12.5 mg 04/25/24 diazepam 2 mg tablet mg 04/25/24 dicyclomine 10 mg capsule 10 mg 04/25/24 dulaglutide 0.75 mg/0.5 mL mg subcut 04/25/24 subcutaneous pen injector ([facility]) Held on 03/11/25. Instructions: Doctor's Order ferrous sulfate 325 mg (65 mg 325 mg 04/25/24 iron) tablet gabapentin 300 mg capsule 300 mg 04/25/24 gabapentin 600 mg tablet 600 mg 04/25/24 hydrocortisone 1 % topical cream applic topical BID AK N itching 04/25/24 insulin aspart (niacinamide) 04/25/24 (U-100) 100 unit/mL subcutaneous solution (Fiasp U-100 Insulin) levothyroxine 112 mcg tablet 112 mcg 04/25/24 lisinopril 10 mg tablet 10 mg 04/25/24 omeprazole 20 mg capsule,delayed 20 mg 04/25/24 release ondansetron HCl 4 mg tablet 4 mg PO Q6H PRN nausea and vomiting 04/25/24 03/11/25 oxybutynin chloride 5 mg mg PO 04/25/24 tablet,extended release 24 hr oxycodone-acetaminophen 5 mg-325 1 tab PO Q12H PRN edward n 04/25/24 03/11/25 mg tablet paroxetine HCl 40 mg tablet 40 mg PO 04/25/24 potassium chloride 20 mEq 20 meq PO 04/25/24 tablet,extended release trazodone 50 mg tablet 50 mg 04/25/24 Previous Rx's ?Medication ?Instructions ?Recorded clindamycin HCl 300 mg capsule 300 mg PO Q6H 10 days # 40 caps 03/11/25 doxycycline hyclate 100 mg capsule 100 mg PO BID 10 da ys #20 caps 03/11/25 Allergies Allergy/AdvReac Type Severity Reaction Status Date / Time adhesive tape AdvReac Unknown Unknown Verified 03/11/25 09:56 amoxicillin AdvReac Unknown Unknown Verified 03/11/25 09:56 bacitracin (From Neosporin AdvReac Unknown Unknown Verified 03/11/25 09:56 ([id number])) celecoxib (From Celebrex) AdvReac Unknown Unknown Verified 03/11/25 09:56 neomycin (From Neosporin AdvReac Unknown Unknown Verified 03/11/25 09:56 ([id number])) Penicillins AdvReac Unknown Unknown Verified 03/11/25 09:56 polymyxin B (From Neosporin AdvReac Unknown Unknown Verified 03/11/25 09:56 ([id number])) Sulfa (Sulfonamide AdvReac Unknown Unknown Verified 03/11/25 09:56 Antibiotics) Opioid HPI Opioid Management Most Recent Opioid Data: Last Pain Scale 6 Today, 09:57 Review of Systems ROS Narrative A ten point review of systems is negative except as noted above. PFSH PFSH Social History Little interest or pleasure in doing things: not at all Feeling down, depressed, or hopeless: not at all Exam Narrative Exam Narrative: Nurses note and vital signs reviewed General:The patient appears well and in no apparent distress.Patient is resting comfortably on cart. Skin:Warm, dry, no pallor noted.There is no rash noted. Head:Normocephalic, atraumatic Eye: Normal conjunctiva, no drainage Ears, Nose, Mouth, and Throat: oral mucosa is moist. Nares patent. Cardiovascular:Regular Rate and Rhythm Respiratory:Patient is in no distress, no accessory muscle use, lungs are clear to auscultation, no wheezing, rales or rhonchi Back:non-tender GI: Soft and nontender Musculoskeletal: Left hallux is red and tender. There is no specific area to suggest paronychia or felon. No open area or drainage. Neurological:A&O, normal speech Psychiatric:Cooperative Constitutional Vital Signs, click to edit/add: Last Vital Signs Temp 98.1 F 03/11/25 09:57 Pulse 59 L 03/11/25 09:57 Resp 18 03/11/25 09:57 BP 170/98 H 03/11/25 09:57 Pulse Ox 96 03/11/25 09:57 O2 Del Method Room Air 03/11/25 10:18 Course Vital Signs Vital signs: Vital Signs Temperature 98.1 F 03/11/25 09:57 Pulse Rate 59 L 03/11/25 09:57 Respiratory Rate 18 03/11/25 09:57 Blood Pressure 170/98 H 03/11/25 09:57 Pulse Oximetry 96 03/11/25 09:57 Temperature 98.1 F 03/11/25 09:57 Pulse Rate 59 L 03/11/25 09:57 Respiratory Rate 18 03/11/25 09:57 Blood Pressure 170/98 H 03/11/25 09:57 Pulse Oximetry 96 03/11/25 09:57 Oxygen Delivery Method Room Air 03/11/25 10:18 Medical Decision Making MDM Narrative Medical decision making narrative: X-ray and blood work is not consistent with osteomyelitis. She was started on clindamycin and doxycycline here and prescribe same. She will follow-up with podiatry. At this point admission to hospital is not warranted. Treatment diagnosis and follow-up were discussed with the patient. Differential Diagnosis Differential Diagnosis: Cellulitis, osteomyelitis, abscess Lab Data Lab results reviewed: Yes I reviewed the patient's lab results Labs: Lab Results 03/11/25 Range/Units 10:15 WBC 7.5 (4.0-11.0) 10^3/uL RBC 3.65 L (4.20-5.40) 10^6/uL Hgb 11.6 L (12.0-16.0) g/dL Hct 35.0 L (36.0-48.0) % MCV 95.9 (81.0-99.0) fL MCH 31.8 (26.7-34.0) pg MCHC 33.1 (29.9-35.2) g/dL RDW 12.6 (11.0-15.0) % Plt Count 171 (150-450) 10^3/uL MPV 10.7 (9.5-13.5) fL Neut % (Auto) 69.3 (43.0-75.0) % Lymph % (Auto) 15.2 L (20.5-60.0) % Leslie % (Auto) 10.7 (1.7-12.0) % Eos % (Auto) 4.0 (0.9-7.0) % Baso % (Auto) 0.3 (0.2-2.0) % Neut # (Auto) 5.2 (1.4-6.5) 10^3/uL Lymph # (Auto) 1.1 L (1.2-3.8) 10^3/uL Leslie # (Auto) 0.8 (0.3-0.8) 10^3/uL Eos # (Auto) 0.3 (0.0-0.7) 10^3/uL Baso # (Auto) 0.0 (0.0-0.1) 10^3/uL Abs Immat Gran (auto) 0.04 H (0.00-0.03) 10^3/uL Imm/Tot Granulo (auto) 0.5 (0.0-0.5) % ESR 22 (<=30) mm/hr Sodium 140 (136-145) mmol/L Potassium 4.0 (3.5-5.1) mmol/L Chloride 108 H (98-107) mmol/L Carbon Dioxide 26.3 (21.0-32.0) mmol/L Anion Gap 9.7 BUN 9.0 (7.0-18.0) mg/dL Creatinine 0.63 (0.55-1.02) mg/dL Est GFR ( Amer) >60 (>=60 mL/min/1.73m^2) Est GFR (Non-Af Amer) >60 (>=60 mL/min/1.73m^2) BUN/Creatinine Ratio 14.3 Glucose 178 H (74-106) mg/dL Calcium 8.4 L (8.5-10.1) mg/dL C-Reactive Protein 0.65 H (<=0.50) mg/dL Imaging Data Foot x-ray: Radiologist's impression: ITS Impressions Foot X-Ray 03/11/25 10:03 IMPRESSION: CHRONIC-APPEARING BONY FINDINGS INCLUDING POSTOPERATIVE AND DEGENERATIVE CHANGES. NO OBVIOUS ACUTE BONY FINDINGS GIVEN THE LIMITED HISTORY AND NO COMPARISONS. Impression dictated by: Elida Duran M.D. 03/11/2025 10:38 AM Dictation Location: [place] [id number] Electronically authenticated by: [id number] Y Date: 03/11/2025 10:38 Discharge Plan Discharge Chief Complaint: Extremity Problem, Nontraumatic Clinical Impression: Cellulitis of great toe Patient Disposition: Home, Self-Care Time of Disposition Decision: 11:27 Condition: Good Mode of Transportation: Private Vehicle Prescriptions / Home Meds: New doxycycline hyclate 100 mg capsule 100 mg PO BID 10 Days Qty: 20 0RF clindamycin HCl 300 mg capsule 300 mg PO Q6H 10 Days Qty: 40 0RF No Action atorvastatin 40 mg tablet 40 mg bupropion HCl 150 mg tablet sustained-release 12 hr 150 mg PO acetaminophen 325 mg tablet 325 mg gabapentin 600 mg tablet 600 mg carvedilol 12.5 mg tablet 12.5 mg ascorbic acid (vitamin C) [Vitamin C] 500 mg tablet diazepam 2 mg tablet hydrocortisone 1 % cream topical BID PRN (Reason: itching) ferrous sulfate 325 mg (65 mg iron) tablet 325 mg gabapentin 300 mg capsule 300 mg bisacodyl [Laxative (bisacodyl)] 5 mg tablet,delayed release (DR/EC) 10 mg dicyclomine 10 mg capsule 10 mg Trulicity 0.75 mg/0.5 mL pen injector SUBCUT ondansetron HCl 4 mg tablet 4 mg PO Q6H PRN (Reason: nausea and vomiting) lisinopril 10 mg tablet 10 mg omeprazole 20 mg capsule,delayed release(DR/EC) 20 mg levothyroxine 112 mcg tablet 112 mcg Fiasp U-100 Insulin 100 unit/mL solution oxycodone-acetaminophen 5-325 mg tablet 1 tab PO Q12H PRN (Reason: pain) oxybutynin chloride 5 mg tablet extended release 24hr PO trazodone 50 mg tablet 50 mg paroxetine HCl 40 mg tablet 40 mg PO potassium chloride 20 mEq tablet extended release 20 meq PO Print Language: [place] Instructions: Cellulitis (ED) Referrals: Marcelo Call DO [Primary Care Provider] - 1 week Johan Waters DPM [Physician, Podiatry]
[2025-03-11 10:23] LABS: Hematocrit 35.0 % (36.0-48.0); Hemoglobin 11.6 g/dL (12.0-16.0); Immature Granulocytes Abs Auto 0.04 10^3/uL (0.00-0.03); Immature Granulocytes Pct Auto 0.5 % (0.0-0.5); Lymphocytes Absolute Auto 1.1 10^3/uL (1.2-3.8); Mean Corpuscular HGB Conc 33.1 g/dL (29.9-35.2); Mean Corpuscular Hemoglobin 31.8 pg (26.7-34.0); Mean Corpuscular Volume 95.9 fL (81.0-99.0); Platelet Count 171 10^3/uL (150-450); Red Blood Count 3.65 10^6/uL (4.20-5.40); White Blood Count 7.5 10^3/uL (4.0-11.0)
[2025-03-11 10:51] LABS: Anion Gap 9.7; Blood Urea Nitrogen 9.0 mg/dL (7.0-18.0); Calcium 8.4 mg/dL (8.5-10.1); Carbon Dioxide 26.3 mmol/L (21.0-32.0); Chloride 108 mmol/L (98-107); Estimated GFR (African America >60 (>=60 mL/min/1.73m^2); Estimated GFR (Non-African Ame >60 (>=60 mL/min/1.73m^2); Glucose 178 mg/dL (74-106); Potassium 4.0 mmol/L (3.5-5.1); Sodium 140 mmol/L (136-145)
[2025-03-11] MEDS: CLINDAMYCIN HCL 150 MG CAPSULE 300 MG PO (11:25)
[2025-03-11] MEDS: DOXYCYCLINE MONOHYDRATE 100 MG CAPSULE PO (11:25)
== END 2025-03-11 12:02 | disposition home or self-care (01) ==
PROVIDERS: Emergency Provider Emergency Medicine; PCP Family Medicine
DX: L03.032 Cellulitis of left toe (principal); E11.9 Type 2 diabetes mellitus without complications
CPT/HCPCS: 36415; 73630; 80048; 85025; 85652; 86140; 99283